=== PATIENT | female | born 1940 | race Caucasian/White ===

== ENCOUNTER → 2017-04-05 15:40 | Outpatient (CLI) | payer MEDICARE, OTHER, SELFPAY ==
--- NOTE | 2017-04-05 | BRBX_PTH ---
PATIENT: MIRLANDE DALTON LOC: [facility] U#:[id number] AGE/SX: 84/F ROOM: RE04/05/[address]: Dr. Paula Alaniz MD : 1940 BED: DIS: SPEC #: [id number] RECD: 04/05/17 15:24 STATUS: DOREEN ILDA #: [id number] JENNIFER: 04/05/17 00:[address]: Paula Alaniz DEPT: SURGICAL PATHOLOGY RECD BY: Warner Ceballos Tissues: Left breast, NOS Procedures: Surgery Specimen Level IV HEADER OPERATION: Left breast biopsy PRE-OP DIAGNOSIS: Abnormal mammogram TISSUE SUBMITTED: Left breast ultrasound-guided mammotome MICROSCOPIC DIAGNOSIS Left breast, ultrasound-guided mammotome core biopsy: Invasive lobular carcinoma, nuclear grade 2 (0.5 cm in greatest length). See comment. JUICE:alex 04/07/17 COMMENT Immunohistochemistry ([id number]) supports the above diagnosis. ER/AR/Irx9hsl studies are being performed on sections of tumor and the results from this study will be reported separately ([id number]). MICROSCOPIC DESCRIPTION Slides are reviewed. GROSS DESCRIPTION Received is one container labeled with the patient's name and not further designated. The specimen consists of multiple elongated fragments of bustamante-yellow fibroadipose tissue that in aggregate measure 2.5 x 1 x 0.1 cm. The entire specimen is submitted in one cassette. / SJ:rg 04/06/17 TC:0 CPT: 40519
--- NOTE | 2017-04-05 | IMM_PTH ---
PATIENT: MIRLANDE DALTON LOC: [facility] U#:[id number] AGE/SX: 84/F ROOM: RE04/05/[address]: Dr. Paula Alaniz MD : 1940 BED: DIS: SPEC #: [id number] RECD: 04/07/17 10:51 STATUS: DOREEN ILDA #: [id number] JENNIFER: 04/05/17 00:[address]: Paula Alaniz DEPT: IMMUNOHISTOCHEMISTRY RECD BY: Celia Spring Tissues: Left breast, NOS Procedures: CK5-6 (add) CK8 (add) E-CAD (add) HER2 JOCELINE (add) KI-67 (add) P53 (add) FL (add) ER (initial) PHYSICIAN & INSTITUTION [place] [id number] SPECIMEN INFORMATION: Tissue Source: Left breast, ultrasound-guided mammotome biopsy Clinical Info: Abnormal mammogram Specimen Number: [id number] CPT code: 54377, 01963 x4, 81252 x3 METHODOLOGY: Deparaffinized sections of prefer/formalin-fixed tissue or PAP/DQ stained slides are incubated with monoclonal/polyclonal antibodies/oligonucleotide probes. Localization is made via biotin free immunoperoxidase method. Appropriate controls are performed and reacted as expected. Results on target cell population are indicated in the following table: RESULTS: ANTIBODY / CLONE RESULT E-Cad (ECH-6) negative CK8 (94zndkA90) positive CK5-6 (D5 & 1684) negative Ki-67 (30-9) positive, moderate P53 (DO-7) positive, weak, a few cells MORPHOMETRIC ANALYSIS ER (clone 6F11) >95%, strong FL (clone 16/1E2) 28%, moderate Her-2Neu (clone CB11) 0 The prognostic test for HER2 is performed on formalin-fixed paraffin embedded tissue. A 3+ (positive) staining pattern is defined as intense, homogeneous, complete, circumferential membranous staining in >10% of contiguous tumor cells. A similar weak (2+) staining pattern is interpreted as equivocal. LISSET follow-up testing is recommended for all equivocal cases. Positivity/negativity for ER/FL is reported if > or < 1% of the tumor cells are immuno- reactive, respectively. The ASCO/CAP criteria is used for scoring. Reference: Journal of Clinical Oncology, 2013; 31:0037-7433 & 2010; 16:9895-5603. Duration of fixation: __ Hrs; Sample Adequate: Yes. These assays have not been validated on decalcified tissues. Results should be interpreted with caution given the likelihood of false negativity on decalcified specimens. These tests were developed and their performance characteristics determined by [facility]. They may not have been cleared or approved by the U.S. Food and Drug Administration. The FDA has determined that such clearance or approval is not necessary. INTERPRETATION: Left breast, ultrasound-guided mammotome biopsy: Invasive lobular carcinoma, nuclear grade 2. Positive for estrogen receptors (favorable prognostic indicator). Positive for progesterone receptors (favorable prognostic indicator). Negative for overexpression of RJD9oyh. SJ:alex 04/07/17
== END ==
PROVIDERS: Visit Provider Surgery
DX: R92.8 Other abnormal and inconclusive findings on diagnostic imaging of breast (principal)
CPT/HCPCS: 88305; 88341; 88342

== ENCOUNTER 2017-04-27 10:15 | Day surgery (SDC) | payer MEDICARE, OTHER, SELFPAY ==
[2017-04-27] VITALS (7 sets, daily range): BP systolic 120–161; BP diastolic 60–94; PULSE 57–71; RESP 16–18; TEMP 36.1–36.6; O2SAT 94–100; BMI 37.8
--- NOTE | 2017-04-27 | IMM_PTH ---
PATIENT: MIRLANDE DALTON [place] [facility] [place][id number] AGE/SX: 76/F ROOM: RE04/27/[address]: Dr. Paula Alaniz MD : 1940 BED: DIS: 04/27/2017 SPEC #: [id number] RECD: 04/29/17 11:09 STATUS: DOREEN REQ #: [id number] JENNIFER: 04/27/17 00:[address]: Paula Alaniz DEPT: IMMUNOHISTOCHEMISTRY RECD BY: Celia Spring ENTERED: 04/29/17 11:14 SP TYPE: IMMUNO OTHR DR: Dr. Warner Leos Jr., MD Tissues: A - Axillary lymph node, NOS B - Left breast, NOS C - Left breast, NOS Procedures: E-CAD (initial) CALPONIN-1 (add) CD31 (add) CK7 (add) CK8 (add) FACTOR VIII (add) Pankeratin (initial) Pankeratin (add) P40 (add) PHYSICIAN & [place] [id number] SPECIMEN INFORMATION: Tissue Source: A ? [place] lymph node left breast, B ? Left breast lumpectomy, C ? Left breast tissue inferior margin Clinical Info: Left breast lobular cancer Specimen Number: [id number] A1, A2, A3, B5, B7, C2 CPT code: 68652 x3, 18315 x12 METHODOLOGY: Deparaffinized sections of prefer/formalin-fixed tissue or PAP/DQ stained slides are incubated with monoclonal/polyclonal antibodies/oligonucleotide probes. Localization is made via biotin free immunoperoxidase method. Appropriate controls are performed and reacted as expected. Results on target cell population are indicated in the following table: RESULTS: ANTIBODY / CLONE RESULT Block A1 AE1-3 (AE1/AE3/PCK26) positive (isolated tumor cells) CK7 (OV-TL12/30) positive (isolated tumor cells) Block A2 AE1-3 (AE1/AE3/PCK26) positive (isolated tumor cells) CK7 (OV-TL12/30) positive (isolated tumor cells) Block A3 AE1-3 (AE1/AE3/PCK26) positive (isolated tumor cells) CK7 (OV-TL12/30) positive (isolated tumor cells) Block B5 E-Cad (ECH-6) negative Block B7 CD31 (DIANELYS/70A) positive Factor VIII (R Ag) positive Block C2 P40 (BC28) negative Calponin-1 (LE824S) negative E-Cad (ECH-6) negative CD31 (DIANELYS/70A) positive Factor VIII (R Ag) positive CK8 (45ofdkJ47) positive These tests were developed and their performance characteristics determined by [facility]. They may not have been cleared or approved by the U.S. Food and Drug Administration. The FDA has determined that such clearance or approval is not necessary. INTERPRETATION: A. [place] lymph nodes, left, biopsy: Three out of three lymph nodes, positive for isolated tumor cells. B. Left breast, lumpectomy: Invasive lobular carcinoma. Lymph-vascular invasion present. C. Left breast tissue inferior margin: Invasive lobular carcinoma. Lymph-vascular invasion present. This case has been reviewed consultation with Dr. Sheppard who concurs with the above diagnosis. SJ:alex 04/30/17
--- NOTE | 2017-04-27 | AXNB_PTH ---
PATIENT: MIRLANDE DALTON LOC: [facility] – [place] U#:[id number] AGE/SX: 76/F ROOM: RE04/27/[address]: Dr. Paula Alaniz MD : 1940 BED: DIS: 04/27/2017 SPEC #: [id number] RECD: 04/27/17 14:00 STATUS: DOREEN REReena #: [id number] JENNIFER: 04/27/17 00:[address]: Paual Alaniz DEPT: SURGICAL PATHOLOGY RECD BY: Celia Spring ENTERED: 04/27/17 15:10 SP TYPE: AX NODE BX OTHR DR: Dr. Warner Leos Jr., MD Tissues: A - Axillary lymph node, NOS B - Left breast, NOS C - Left breast, NOS Procedures: Frozen Section (charge) Frozen Section Add'l ([facility]) Surgery Specimen Level IV Surgery Specimen Level V Frozen (no charge) HEADER OPERATION: Breast lumpectomy, sentinel node, NL, Neoprobe PRE-OP DIAGNOSIS: Left breast lobular cancer TISSUE SUBMITTED: A ? [place] lymph node left breast ? sent to lab at 1356, FS, B ? Left breast lumpectomy ? sent to mammography at 1440 first, ten to histology; 2 long sutures ? anterior, 1 long ? lateral, 1 short ? superior, loop ? posterior border, 2 short ? medial, C ? Left breast tissue inferior margin sent for permanent ? suture on tumor side FROZEN SECTION DIAGNOSIS A. [place] lymph nodes, left, biopsy: Three out of three lymph nodes, negative for metastatic carcinoma. SJ:alex 04/27/17 MICROSCOPIC DIAGNOSIS A. [place] lymph node, biopsy: Three out of three lymph nodes positive for isolated tumor cells. See comment. B. Left breast, lumpectomy with needle localization: Invasive lobular carcinoma, multifocal. Extensive lymph-vascular invasion present. See cancer summary below. C. Left breast tissue inferior margin: Invasive lobular carcinoma, multifocal. Extensive lymph-vascular invasion present. Focal atypical lobular hyperplasia. INVASIVE BREAST CANCER SUMMARY: (Including specimen A-C) Specimen ? partial breast Procedure ? excision with wire-guided localization Lymph node sampling ? sentinel lymph nodes Specimen integrity ? multiple designated specimens Specimen size ? lumpectomy specimen 10 x 6 x 4 cm - Additional inferior margin 5.5 x 4 x 0.9 cm Specimen laterality - left Tumor site ? not specified Tumor size, size of largest invasive carcinoma - 2.5 x 2.5 x 1.5 cm Tumor focality ? multiple foci of invasive carcinoma Number of foci ? ~18 (including the largest focus) Sizes of individual foci - <0.1 to 2.5 cm (largest focus) Macroscopic and Microscopic extent of tumor: Skin ? not present Nipple ? not applicable Skeletal muscle ? not present Ductal carcinoma in situ (DCIS) ? not present Lobular carcinoma in situ (LCIS) ? present, focal Histologic type of invasive carcinoma ? invasive lobular carcinoma, pleomorphic variant Histologic Grade (Vj grade): Glandular/tubular differentiation - score 3 Nuclear pleomorphism - score 3 Mitotic count ? score 1 Overall grade - 2 (score of 7) Margins - Margins uninvolved by invasive carcinoma. See comment. Treatment effect: Response to presurgical (neoadjuvant) therapy - no known presurgical therapy. Lymph-Vascular invasion ? present, extensive Dermal lymph-vascular invasion ? not applicable Lymph nodes: Number of sentinel lymph nodes examined - 3 Total number of lymph nodes examined (sentinel and nonsentinel) - 3 Number of lymph nodes with isolated tumor cells ? 3 Number of lymph nodes with macrometastases and micrometastases - 0 Method of evaluation of sentinel lymph nodes - H & E, multiple levels and IHC. Additional pathologic findings ? fibrocystic changes and intraductal hyperplasia without atyjpia. - changes consistent with previous biopsy site. - focal atypical lobular hyperplasia. Ancillary studies - previously performed on section of tumor ([id number] / [id number]). ER ? positive (>95%, strong) NE ? positive (28%, moderate) Her2 unique ? negative (0) Her2 by dual LISSET ? not performed Microcalcifications ? present in non-neoplastic tissue. Clinical history - Please make reference to previous specimen ([id number]) left breast, ultrasound-guided mammotome core biopsy with diagnosis of invasive lobular carcinoma. PATHOLOGIC STAGE: pT2(m) pN0 (i+,sn) Mx The above summary is in compliance with [employer] of [place] [employer] (CAP) Cancer Protocols Checklist and [place] Joint Committee on Cancer (AJCC), Staging Manual, 8th Ed. SJ:rg 04/30/17 COMMENT A. The isolated tumor cells are noted only by immunohistochemistry for cytokeratins ([id number]). B. The invasive lobular carcinoma is multifocal. The tumor is 0.1 cm away from the inferior margin and 0.2 cm away from the second closest anterior margin. C. The new inferior margin also shows multiple foci of invasive lobular carcinoma. The largest focus of invasive carcinoma in this specimen measures 0.5 cm in greatest dimension. The invasive lobular carcinoma is 0.3 cm away from the new margin. Multiple foci of lymph-vascular invasion is noted and area of lymph-vascular invasion is <0.1 cm away from the new margin. Case has been reviewed in consultation with Dr. Sheppard who concurs with the above diagnosis. IDC:AM MICROSCOPIC DESCRIPTION Slides are reviewed. GROSS DESCRIPTION A - Received fresh for frozen section diagnosis labeled with the patient's name is a specimen designated sentinel lymph node, left. The specimen consists of two pieces of yellow adipose tissue containing nodules measuring in aggregate 3 x 3 x 1 cm. Three lymph nodes are identified measuring 1 to 1.5 cm in greatest dimension. The entire specimen is submitted in four cassettes as follows: 1-3 ? FS, each cassette containing one bisected lymph node, 4 ? rest of the specimen. / SJ:rg 04/27/17 B - Received fresh for OR consultation labeled with the patient's name is a specimen designated left breast lumpectomy. The specimen consists of an irregular fragment of bustamante-yellow fibrofatty tissue measuring 10 x 6 x 4 cm. The specimen has been oriented and is differentially inked as follows: anterior ? yellow, posterior ? black, superior ? blue, inferior ? green, medial ? red and lateral ? orange. Serial sections reveal a firm, bustamante-white lesion measuring 2.5 x 2.5 x 1.5 cm. The lesion is located 0.3 cm from its closest (inferior) margin of resection. This information is conveyed to the surgeon intraoperatively by Dr. Hoffmann. Gas Reverser sections are submitted in 11 cassettes as follows: 1 & 2 ? perpendicular inked margins, 3-9 ? tumor with adjacent soft tissue, 10 & 11 ? contracts representative sections of breast parenchyma away from tumor. / AM:alex 04/28/17 C - Received in fixative is one container labeled with the patient's name and designated left breast tissue, inferior margin. The specimen consists of an irregular fragment of yellow fatty tissue measuring 5.5 x 4 x 0.9 cm. A suture is present along one surface signifying the surface closest to tumor. The opposite surface is inked in black ink and the specimen is serially sectioned and reveals homogenous yellow cut surfaces without mass lesions. Gas Reverser sections are submitted in three cassettes. / AM:alex 04/28/17 TC:0 CPT: 52479 x2, 48920, 49107, 72013, 43697
--- NOTE | 2017-04-27 11:00 | NM_ITS ---
PROCEDURE: NUCLEAR MEDICINE Injection Camino Node - LEFT breast(s). REASON FOR EXAM: Female, 76 years old. Left breast cancer. TECHNIQUE: Camino node localization using radionuclide methods of the LEFT breast(s) was performed following subcutaneous administration of 1.1 mCi of of sulfur colloid Tc-99m. FINDINGS: 1.1 mCi of technetium labeled sulfur colloid was injected subcutaneously in the upper outer quadrant of the left breast. NM/Lymph Node Injection Only IMPRESSION: 1.1 mCi of Tc labeled sulfur colloid was injected in 4 equal aliquots in the upper outer quadrant of the left breast for sentinel node imaging. Electronically Signed: Oseas Renee MD at 12:20 EDT Tel [phone], Service support ,
[2017-04-27] MEDS: Cefazolin 2 GM in 0.9% Normal Saline 100 ML IV (13:20)
[2017-04-27] MEDS: Methylene Blue 1% 100 MG/10 ML VIAL (13:30)
[2017-04-27] MEDS: Bupiv/Epi 0.5% Mpf 30 ML Vial (13:35)
--- NOTE | 2017-04-27 14:46 | HPBI_ITS ---
SURGICAL BREAST SPECIMEN RADIOGRAPH CLINICAL: Document presence of mass in biopsy specimen. FINDINGS: Specimen shows presence of mass. Electronically Signed: Oseas Renee MD at 9:45 EDT Tel [phone], Service support , HPBI/Breast Biopsy Specimen
--- NOTE | 2017-04-27 15:14 | PCM.IMDPSTOP ---
Immediate Post-Op Note Date of Procedure: 04/27/17 Primary Surgeon/Physician: Paula Alaniz blasting worker: Roya Coleman Pre-Operative Diagnosis: left breast cancer Post-Operative Diagnosis: same Surgery/Procedure Performed:: left breast lumpectomy via wire localization, deep left axillary sentinel lymph node biopsy, injection of localization dye for sentine lymph nodes Description of Surgical Findings:: 3 lymph nodes identified, negative for metastatic disease Estimated Blood Loss: < 10 ml Specimen's removed: left breast lumpectomy, left axillary lymph sendy tissue, inferior margin of biopsy cavity Drains: none Type of Anesthesia:: General ASA Class: ASA3 Severe Disease - Admit VTE Documentation VTE Present on Admission: Yes VTE Mechan Device Prophylaxis: SCD's
--- NOTE | 2017-04-27 15:18 | OP.PN_ITS ---
Immediate Post-Op Note Date of Procedure: 04/27/17 Primary Surgeon/Physician: Paula Alaniz cloth classer: Roya Coleman Pre-Operative Diagnosis: left breast cancer Post-Operative Diagnosis: same Surgery/Procedure Performed:: left breast lumpectomy via wire localization, deep left axillary sentinel lymph node biopsy, injection of localization dye for sentine lymph nodes Description of Surgical Findings:: 3 lymph nodes identified, negative for metastatic disease Estimated Blood Loss: < 10 ml Specimen's removed: left breast lumpectomy, left axillary lymph sendy tissue, inferior margin of biopsy cavity Drains: none Type of Anesthesia:: General ASA Class: ASA3 Severe Disease - Admit VTE Documentation VTE Present on Admission: Yes VTE Mechan Device Prophylaxis: SCD's
--- NOTE | 2017-04-27 15:18 | PCM.OPRPT ---
Report of Operation Date of Procedure: 04/27/17 Pre-Operative Diagnosis: left breast cancer Post-Operative Diagnosis: same Surgery/Procedure Performed:: left breast lumpectomy via wire localization, deep left axillary sentinel lymph node biopsy, injection of localization dye for sentinal lymph nodes Description of Surgical Findings:: 3 lymph nodes identified, negative for metastatic disease closest margin was inferior - therefore additional inferior margin was taken documentation clerk: Roya Coleman Type of Anesthesia:: General Anesthesiologist: Zac Kathleen Specimen's removed: left lumpectomy breast tissue, left axillary lymph sendy tissue, inferior margin of biopsy cavity from left breast lumpectomy site Drains: none Estimated Blood Loss (mL): < 10 ml Fluids Replaced: 900 ml RL Description of Procedure: After informed consent was given, the patient was brought into the Breast Stereotactic Radiology suite and placed in the prone position on the Vargas stereotactic table. Appropriate time out protocol was followed. The patients left breast was placed in the opening at the head of the table. A guard supervisor compression mammogram was then obtained in the lateral view. The marker clip that was previously placed was identified. Stereo pictures of the lesion were then taken for XYZ coordinates. The Kopans needle was then positioned where it would be entering into the patients breast. The skin at this site was then cleansed with a surgical skin preparation. The skin and subcutaneous tissues at this site were then infiltrated with 1% xylocaine. The Kopans needle was then positioned into the patients breast at the proper coordinates of depth. A guard supervisor film was obtained which revealed the wire in proper position. The patient was then placed in the supine position and the wire was taped into place. A unilateral mammogram in the CC and MLO view were then taken for use in the OR. The patient tolerated this portion of the procedure well and was brought to the AC awaiting surgery in the OR. The patient was then brought to the Operating Room and placed on the operating table in the supine position. Appropriate time out protocol was followed. 3 cc of 50:50 methylene blue dye was then injected into the periareolar area and around the biopsy cavity with a 25 g needle. Gentle massage was then done for a few minutes. The patient's left chest and neck area was then prepped with a sterile surgical skin preparation and appropriate sterile surgical drapes were placed. A skin incision was made in the inferior portion of the hair bearing area of the left axilla after the area was infiltrated with local anesthetic. It was carried through to the subcutaneous tissues using electrocautery. Any hemorrhage was controlled with electrocautery. A Weitlaner retractor was used for increased operative exposure. The Neoprobe device was brought into the operative field. 10 second readings over the tumor site was 99. 10 second reading over a control area was 1. The 10 second reading in the axilla was 41. Blue lymphatic vessels were then followed by blunt dissection until blue colored lymph tissue was identified. This was from the surrounding tissue by blunt dissection and then ligated with the Harmonic scalpel. 10 second count for this lymphatic tissue was 44. The lymph tissue was then forwarded to pathology for frozen section. Pathology revealed that three lymph nodes were found that were negative for metastatic disease. 10 second count in the axilla was now 0. No palpable lesions were noted in the axilla. Hemostasis was controlled with electrocautery. Olaf was applied in the cavity. The deep tissues were approximated with vicryl suture. The skin edges were reapproximated with 3-0 vicryl suture in a horizontal mattress fashion and then further closed with running 4-0 monocryl in a subcuticular fashion. Cavilon and steristrips were then placed to reinforce the skin closure and proper sterile dressings were applied. The left breast lumpectomy was then done, next. A wire had already been placed in the stereotactic biopsy room in the radiology department as described above. The skin and subcutaneous tissues at the site of the breast lesion was then infiltrated with local anesthetic. A transverse incision was made in the upper outer quadrant of the left breast with a 15 blade scalpel and carried down through to the subcutaneous tissues. Hemostasis was controlled with electrocautery. The wire was then palpated out. The breast tissue surrounding the wire was then carefully palpated out and from the surrounding tissues using electrocautery. There was also nodular dense tissue that was noted, this was also excised. The breast tissue, once from the breast, was then forwarded to the radiology department, where a specimen mammogram revealed that the marker clip was within the specimen. The breast tissue was then forwarded to pathology for analysis. Pathology review revealed that the closest margin was inferior. Therefore additional inferior margin tissue was obtained. The wound cavity was carefully examined. No further suspicious tissue was palpated or visualized. Hemostasis was carefully controlled with electrocautery. The subdermal tissues were then approximated with vicryl suture. The incision was then reapproximated close using running monocryl suture. Cavilon and steristrips were then placed to reinforce the skin closure. A sterile dressing was then applied. The patient was then brought to the Recovery Room in stable condition. - Complications none noted - Admit VTE Documentation VTE Present on Admission: Yes VTE Mechan Device Prophylaxis: SCD's
--- NOTE | 2017-04-27 15:24 | PCM.DC.BS ---
Discharge Diet: No Restrictions Discharge Activity: Return to Normal Activity, May not drive while taking narcotic pain medications. Lifting Restrictions: no lifting greater than 10 pounds with left arm Call your doctor if your incision/area has: Continuous Slow Oozing, Foul Smelling Discharge Call your doctor if you observe: Fever of 101 or Higher Additional Dressing/Incision Instructions:: Leave dressings in place. May get wet in shower, do not scrub. No soaking - no tub baths/swimming Allergies/Adverse Reactions: Allergies Sulfa (Sulfonamide Antibiotics) Allergy (Verified 04/20/17 09:30) Unknown Medications to take at Discharge Acetaminophen [Tylenol Extra Strength] 500 mg PO DAILY 04/20/17 Atenolol [Tenormin (Beta Aniyah)] 100 mg PO DAILY 04/20/17 Atorvastatin Calcium [Lipitor] 10 mg PO QHS 04/20/17 Calcium Carbonate/Vitamin D3 [Calcium 600 + Vit D3 Caplet] 1 each PO TID 04/20/17 Cyclobenzaprine [Flexeril] 10 mg PO DAILY 04/20/17 Gabapentin [Neurontin] 300 mg PO BID 04/20/17 Hydrochlorothiazide [Hctz] 25 mg PO DAILY 04/20/17 Losartan Potassium [Cozaar] 50 mg PO DAILY 04/20/17 Multivit with Calcium,Iron,Min [Multiple Vitamins For Women] 1 each PO DAILY 04/20/17 Primary Care Physician: Warner Leos Jr., MD [Primary Care Provider] - Please Follow Up With: Paula Alaniz MD - call When: to be seen in 7-10 days, please call for date and time, thank you
--- NOTE | 2017-04-27 15:28 | DCINST_ITS ---
Discharge Diet: No Restrictions Discharge Activity: Return to Normal Activity, May not drive while taking narcotic pain medications. Lifting Restrictions: no lifting greater than 10 pounds with left arm Call your doctor if your incision/area has: Continuous Slow Oozing, Foul Smelling Discharge Call your doctor if you observe: Fever of 101 or Higher Additional Dressing/Incision Instructions:: Leave dressings in place. May get wet in shower, do not scrub. No soaking - no tub baths/swimming Allergies/Adverse Reactions: Allergies Sulfa (Sulfonamide Antibiotics) Allergy (Verified 04/20/17 09:30) Unknown Medications to take at Discharge Acetaminophen [Tylenol Extra Strength] 500 mg PO DAILY 04/20/17 Atenolol [Tenormin (Beta Aniyah)] 100 mg PO DAILY 04/20/17 Atorvastatin Calcium [Lipitor] 10 mg PO QHS 04/20/17 Calcium Carbonate/Vitamin D3 [Calcium 600 + Vit D3 Caplet] 1 each PO TID Cyclobenzaprine [Flexeril] 10 mg PO DAILY 04/20/17 Gabapentin [Neurontin] 300 mg PO BID 04/20/17 Hydrochlorothiazide [Hctz] 25 mg PO DAILY 04/20/17 Losartan Potassium [Cozaar] 50 mg PO DAILY 04/20/17 Multivit with Calcium,Iron,Min [Multiple Vitamins For Women] 1 each PO DAILY Primary Care Physician: Warner Leos Jr., MD [Primary Care Provider] - Please Follow Up With: Paula Alaniz MD - call When: to be seen in 7-10 days, please call for date and time, thank you
== END 2017-04-27 17:37 | disposition home or self-care (01) ==
LOC: SDC 10:21 → AC 10:22
PROVIDERS: Family Provider Internal Medicine; PCP Internal Medicine; Visit Provider Surgery
PROC: (CPT 19301; principal; 2017-04-27 12:45)
DX: C50.412 Malignant neoplasm of upper-outer quadrant of left female breast (principal); Z17.0 Estrogen receptor positive status [ER+]; I10 Essential (primary) hypertension; E78.00 Pure hypercholesterolemia, unspecified; D50.9 Iron deficiency anemia, unspecified; Z79.899 Other long term (current) drug therapy
CPT/HCPCS: 00400; 19301; 38525; 19281; 38792; 76098; 88305; 88307; 88331; 88332; 88341; 88342; A9541; J7120; J2405; J3490

== ENCOUNTER → 2024-02-28 | Outpatient (REF) | payer OTHER, SELFPAY ==
[2024-02-28 10:07] LABS: Absolute Lymphocyte Count 1.75 X10^3/uL (0.83-4.51); Absolute Neutrophil Count 3.9 X10^3/uL (2.0-7.7); Basophil# 0.05 X10^3/uL; Basophil% 0.8 % (0-1); Eosinophil# 0.15 X10^3/uL; Eosinophils% 2.3 % (0-5); Hematocrit 32.1 % (37-47); Hemoglobin 9.9 g/dL (12.0-15.0); Lymphocyte # 1.75 X10^3/ul (0.83-4.51); Lymphocyte % 27.3 % (19-41); Mean Corp Hgb Conc 30.8 g/dL (32-36); Mean Corpuscular Hgb 27.6 pg (27.0-32.0); Mean Corpuscular Volume 89.4 fL (81-99); Mean Platelet Vol. 9.6 fl (6.2-12.0); Monocyte# 0.56 X10^3/uL; Monocyte% 8.7 % (0-10); NRBC Flagged by Analyzer 0 % (0-5); Neutrophil # 3.89 X10^3/uL (2.7-7.7); Neutrophil % 60.6 % (47-70); Platelet Count 261 K/mm3 (150-450); RBC Distribution Width CV 13.4 % (11.6-14.6); RBC Distribution Width SD 43.7 fl (35.1-43.9); Red Blood Count 3.59 M/mm3 (4.2-5.4); White Blood Count 6.4 K/mm3 (4.4-11.0)
[2024-02-28 10:20] LABS: Vitamin D,25 Hydroxy 60.8 ng/mL
[2024-02-28 10:28] LABS: AST(SGOT) 15 U/L (15-37); Alanine Aminotransfer ALT/SGPT 17 U/L (13-56); Albumin, Serum 2.8 g/dL (3.2-5.0); Alkaline Phosphatase 63 U/L (45-117); Anion Gap 4 (5-15); BUN 23 mg/dL (7-18); BUN/Creat Ratio 24.1 RATIO (10-20); Calcium,Total 9.6 mg/dL (8.5-10.1); Chloride 111 mmol/L (98-107); Cholesterol 134 mg/dL (200); Creatinine, Serum 0.95 mg/dL (0.55-1.02); EST Glomerular Filtration Rate 59 mL/min (>60); Est Glom Filt Rate - Afr Amer 72 mL/min (>60); Globulin 2.9 g/dL (2.2-4.2); Glucose 93 mg/dL (74-106); High Density Lipoprotein 58 mg/dL; Potassium 4.1 mmol/L (3.5-5.1); Protein, Total 5.7 g/dL (6.4-8.2); Sodium Level 143 mmol/L (136-145); Triglycerides 43 mg/dL; Very Low Density Lipoprotein 9 mg/dL (5-40)
[2024-02-28 10:43] LABS: Valproic Acid (Depakene) Level 26 ug/mL (50-100)
== END ==
LOC: OLS.WHLCAR 05:00
PROVIDERS: PCP Internal Medicine; Visit Provider Internal Medicine
DX: G30.9 Alzheimer's disease, unspecified (principal); F02.B11 Dementia in other diseases classified elsewhere, moderate, with agitation; G21.9 Secondary parkinsonism, unspecified; I12.9 Hypertensive chronic kidney disease with stage 1 through stage 4 chronic kidney disease, or unspecified chronic kidney disease; N18.9 Chronic kidney disease, unspecified
CPT/HCPCS: 36415; 80053; 80061; 80164; 82306; 85025

== ENCOUNTER → 2024-03-27 05:00 | Outpatient (REF) | payer OTHER, SELFPAY ==
[2024-03-27 08:27] LABS: Absolute Lymphocyte Count 2.06 X10^3/uL (0.83-4.51); Absolute Neutrophil Count 3.3 X10^3/uL (2.0-7.7); Basophil# 0.05 X10^3/uL; Basophil% 0.8 % (0-1); Eosinophil# 0.14 X10^3/uL; Eosinophils% 2.3 % (0-5); Hematocrit 30.9 % (37-47); Hemoglobin 9.6 g/dL (12.0-15.0); Lymphocyte # 2.06 X10^3/ul (0.83-4.51); Lymphocyte % 33.5 % (19-41); Mean Corp Hgb Conc 31.1 g/dL (32-36); Mean Corpuscular Volume 90.1 fL (81-99); Mean Platelet Vol. 10.2 fl (6.2-12.0); Monocyte# 0.59 X10^3/uL; Monocyte% 9.6 % (0-10); NRBC Flagged by Analyzer 0 % (0-5); Neutrophil # 3.28 X10^3/uL (2.7-7.7); Neutrophil % 53.3 % (47-70); Platelet Count 235 K/mm3 (150-450); RBC Distribution Width CV 13.2 % (11.6-14.6); RBC Distribution Width SD 43.7 fl (35.1-43.9); Red Blood Count 3.43 M/mm3 (4.2-5.4); White Blood Count 6.2 K/mm3 (4.4-11.0)
[2024-03-27 08:57] LABS: Anion Gap 6 (5-15); BUN 19 mg/dL (7-18); BUN/Creat Ratio 19.3 RATIO (10-20); Calcium,Total 9.3 mg/dL (8.5-10.1); Chloride 110 mmol/L (98-107); Creatinine, Serum 0.98 mg/dL (0.55-1.02); EST Glomerular Filtration Rate 57 mL/min (>60); Est Glom Filt Rate - Afr Amer 69 mL/min (>60); Glucose 89 mg/dL (74-106); Sodium Level 143 mmol/L (136-145)
== END ==
LOC: OLS.WHLCAR 05:00
PROVIDERS: PCP Internal Medicine; Visit Provider Internal Medicine
DX: G30.9 Alzheimer's disease, unspecified (principal); F02.B11 Dementia in other diseases classified elsewhere, moderate, with agitation; G21.9 Secondary parkinsonism, unspecified; I12.9 Hypertensive chronic kidney disease with stage 1 through stage 4 chronic kidney disease, or unspecified chronic kidney disease
CPT/HCPCS: 36415; 80048; 85025

== ENCOUNTER → 2024-04-03 05:00 | Outpatient (REF) | payer OTHER, SELFPAY ==
[2024-04-03 06:31] LABS: Basophil# 0.07 X10^3/uL; Basophil% 1.3 % (0-1); Eosinophil# 0.12 X10^3/uL; Eosinophils% 2.3 % (0-5); Hematocrit 31.6 % (37-47); Hemoglobin 9.7 g/dL (12.0-15.0); Lymphocyte % 32.1 % (19-41); Mean Corp Hgb Conc 30.7 g/dL (32-36); Mean Corpuscular Volume 91.1 fL (81-99); Mean Platelet Vol. 9.9 fl (6.2-12.0); Monocyte# 0.44 X10^3/uL; Monocyte% 8.3 % (0-10); NRBC Flagged by Analyzer 0 % (0-5); Neutrophil # 2.95 X10^3/uL (2.7-7.7); Neutrophil % 55.8 % (47-70); Platelet Count 229 K/mm3 (150-450); RBC Distribution Width CV 13.2 % (11.6-14.6); RBC Distribution Width SD 43.2 fl (35.1-43.9); Red Blood Count 3.47 M/mm3 (4.2-5.4); White Blood Count 5.3 K/mm3 (4.4-11.0)
[2024-04-03 06:51] LABS: Anion Gap 6 (5-15); BUN 20 mg/dL (7-18); BUN/Creat Ratio 21.1 RATIO (10-20); Calcium,Total 9.4 mg/dL (8.5-10.1); Chloride 111 mmol/L (98-107); Creatinine, Serum 0.95 mg/dL (0.55-1.02); EST Glomerular Filtration Rate 59 mL/min (>60); Est Glom Filt Rate - Afr Amer 72 mL/min (>60); Glucose 93 mg/dL (74-106); Potassium 4.4 mmol/L (3.5-5.1); Sodium Level 144 mmol/L (136-145)
== END ==
LOC: OLS.WHLCAR 05:00
PROVIDERS: PCP Internal Medicine; Visit Provider Internal Medicine
DX: G30.9 Alzheimer's disease, unspecified (principal); F02.B11 Dementia in other diseases classified elsewhere, moderate, with agitation; G21.9 Secondary parkinsonism, unspecified; I12.9 Hypertensive chronic kidney disease with stage 1 through stage 4 chronic kidney disease, or unspecified chronic kidney disease
CPT/HCPCS: 36415; 80048; 85025

== ENCOUNTER → 2024-05-01 | Outpatient (REF) | payer OTHER, SELFPAY ==
[2024-05-01 08:54] LABS: Absolute Neutrophil Count 2.7 X10^3/uL (2.0-7.7); Basophil# 0.08 X10^3/uL; Basophil% 1.5 % (0-1); Eosinophil# 0.12 X10^3/uL; Eosinophils% 2.2 % (0-5); Hematocrit 37.3 % (37-47); Hemoglobin 11.3 g/dL (12.0-15.0); Lymphocyte % 35.5 % (19-41); Mean Corp Hgb Conc 30.3 g/dL (32-36); Mean Corpuscular Hgb 28.3 pg (27.0-32.0); Mean Corpuscular Volume 93.5 fL (81-99); Mean Platelet Vol. 10.2 fl (6.2-12.0); Monocyte# 0.48 X10^3/uL; NRBC Flagged by Analyzer 0 % (0-5); Neutrophil # 2.71 X10^3/uL (2.7-7.7); Neutrophil % 50.7 % (47-70); Platelet Count 235 K/mm3 (150-450); RBC Distribution Width SD 44.5 fl (35.1-43.9); Red Blood Count 3.99 M/mm3 (4.2-5.4); White Blood Count 5.4 K/mm3 (4.4-11.0)
[2024-05-01 14:42] LABS: Anion Gap 11 (5-15); BUN 17 mg/dL (4-19); BUN/Creat Ratio 17.8 RATIO (10-20); Calcium,Total 9.8 mg/dL (7.6-11.0); Carbon Dioxide 23.3 mmol/L (21.0-32.0); Chloride 107 mmol/L (98-108); Creatinine, Serum 0.96 mg/dL (0.70-1.20); EST Glomerular Filtration Rate 58 (>60); Glucose 89 mg/dL (70-99); Potassium 4.3 mmol/L (3.3-5.1); Sodium Level 141 mmol/L (133-145)
== END ==
LOC: OLS.WHLCAR 05:00
PROVIDERS: PCP Internal Medicine; Visit Provider Internal Medicine
DX: I12.9 Hypertensive chronic kidney disease with stage 1 through stage 4 chronic kidney disease, or unspecified chronic kidney disease (principal); N18.9 Chronic kidney disease, unspecified; F02.B11 Dementia in other diseases classified elsewhere, moderate, with agitation; G30.9 Alzheimer's disease, unspecified
CPT/HCPCS: 36415; 80048; 85025

== ENCOUNTER → 2024-05-15 | Outpatient (REF) | payer MEDICARE, OTHER, SELFPAY ==
[2024-05-15 09:47] LABS: Anion Gap 10 (5-15); BUN 15 mg/dL (4-19); BUN/Creat Ratio 15.3 RATIO (10-20); Calcium,Total 9.8 mg/dL (7.6-11.0); Chloride 108 mmol/L (98-108); Creatinine, Serum 0.98 mg/dL (0.70-1.20); EST Glomerular Filtration Rate 57 (>60); Glucose 87 mg/dL (70-99); Potassium 3.8 mmol/L (3.3-5.1); Sodium Level 143 mmol/L (133-145)
== END ==
LOC: OLS.WHLCAR 04:00
PROVIDERS: PCP Internal Medicine; Referring Provider Internal Medicine; Visit Provider Internal Medicine
DX: R60.9 Edema, unspecified (principal); G30.9 Alzheimer's disease, unspecified; I12.9 Hypertensive chronic kidney disease with stage 1 through stage 4 chronic kidney disease, or unspecified chronic kidney disease; N18.9 Chronic kidney disease, unspecified
CPT/HCPCS: 36415; 80048

== ENCOUNTER → 2024-05-24 | Outpatient (REF) | payer MEDICARE, OTHER, SELFPAY ==
[2024-05-24 08:06] LABS: Absolute Neutrophil Count 3.1 X10^3/uL (2.0-7.7); Basophil# 0.06 X10^3/uL; Basophil% 1.1 % (0-1); Eosinophil# 0.12 X10^3/uL; Eosinophils% 2.1 % (0-5); Hematocrit 33.2 % (37-47); Hemoglobin 10.7 g/dL (12.0-15.0); Lymphocyte % 33.6 % (19-41); Mean Corp Hgb Conc 32.2 g/dL (32-36); Mean Corpuscular Hgb 27.8 pg (27.0-32.0); Mean Corpuscular Volume 86.2 fL (81-99); Mean Platelet Vol. 10.2 fl (6.2-12.0); Monocyte# 0.46 X10^3/uL; Monocyte% 8.1 % (0-10); NRBC Flagged by Analyzer 0 % (0-5); Neutrophil # 3.11 X10^3/uL (2.7-7.7); Neutrophil % 54.9 % (47-70); Platelet Count 264 K/mm3 (150-450); RBC Distribution Width CV 13.2 % (11.6-14.6); RBC Distribution Width SD 41.3 fl (35.1-43.9); Red Blood Count 3.85 M/mm3 (4.2-5.4); White Blood Count 5.7 K/mm3 (4.4-11.0)
[2024-05-24 08:54] LABS: ALB/GLOB Ratio 1.5 RATIO (0.9-2.4); AST(SGOT) 21 U/L (<=31); Alanine Aminotransfer ALT/SGPT 11 U/L (<=34); Alkaline Phosphatase 67 U/L (35-104); Anion Gap 11 (5-15); BUN 21 mg/dL (4-19); BUN/Creat Ratio 19.7 RATIO (10-20); Calcium,Total 9.9 mg/dL (7.6-11.0); Carbon Dioxide 23.5 mmol/L (21.0-32.0); Chloride 106 mmol/L (98-108); Creatinine, Serum 1.05 mg/dL (0.70-1.20); EST Glomerular Filtration Rate 52 (>60); Globulin 2.6 g/dL (2.2-4.2); Glucose 95 mg/dL (70-99); Potassium 3.9 mmol/L (3.3-5.1); Protein, Total 6.6 g/dL (5.9-8.4); Sodium Level 141 mmol/L (133-145); Total Bilirubin 0.29 mg/dL (0.00-1.30)
[2024-05-24 08:55] LABS: Hemoglobin A1c 5.5 % (<=5.6)
== END ==
LOC: OLS.WHLCAR 05:00
PROVIDERS: PCP Internal Medicine; Visit Provider Internal Medicine
DX: R73.03 Prediabetes (principal); G30.9 Alzheimer's disease, unspecified; F02.B11 Dementia in other diseases classified elsewhere, moderate, with agitation; G21.9 Secondary parkinsonism, unspecified; I12.9 Hypertensive chronic kidney disease with stage 1 through stage 4 chronic kidney disease, or unspecified chronic kidney disease; N18.9 Chronic kidney disease, unspecified
CPT/HCPCS: 36415; 80053; 83036; 85025

== ENCOUNTER → 2024-05-29 | Outpatient (REF) | payer MEDICARE, OTHER, SELFPAY ==
[2024-05-29 08:02] LABS: Absolute Lymphocyte Count 2.09 X10^3/uL (0.83-4.51); Absolute Neutrophil Count 3.4 X10^3/uL (2.0-7.7); Basophil# 0.07 X10^3/uL; Basophil% 1.2 % (0-1); Eosinophils% 1.6 % (0-5); Hematocrit 33.4 % (37-47); Hemoglobin 10.9 g/dL (12.0-15.0); Lymphocyte # 2.09 X10^3/ul (0.83-4.51); Lymphocyte % 34.4 % (19-41); Mean Corp Hgb Conc 32.6 g/dL (32-36); Mean Corpuscular Volume 85.9 fL (81-99); Mean Platelet Vol. 10.3 fl (6.2-12.0); Monocyte# 0.46 X10^3/uL; Monocyte% 7.6 % (0-10); NRBC Flagged by Analyzer 0 % (0-5); Neutrophil # 3.35 X10^3/uL (2.7-7.7); Platelet Count 247 K/mm3 (150-450); RBC Distribution Width CV 13.1 % (11.6-14.6); Red Blood Count 3.89 M/mm3 (4.2-5.4); White Blood Count 6.1 K/mm3 (4.4-11.0)
[2024-05-29 08:32] LABS: AST(SGOT) 20 U/L (<=31); Alanine Aminotransfer ALT/SGPT 11 U/L (<=34); Alkaline Phosphatase 62 U/L (35-104); Anion Gap 10 (5-15); BUN 18 mg/dL (4-19); BUN/Creat Ratio 16.9 RATIO (10-20); Bilirubin, Direct 0.17 mg/dL (0.00-0.30); Calcium,Total 9.8 mg/dL (7.6-11.0); Carbon Dioxide 25.1 mmol/L (21.0-32.0); Chloride 105 mmol/L (98-108); Creatinine, Serum 1.08 mg/dL (0.70-1.20); EST Glomerular Filtration Rate 50 (>60); Globulin 2.5 g/dL (2.2-4.2); Glucose 89 mg/dL (70-99); Potassium 4.3 mmol/L (3.3-5.1); Protein, Total 6.4 g/dL (5.9-8.4); Sodium Level 140 mmol/L (133-145); Total Bilirubin 0.35 mg/dL (0.00-1.30)
== END ==
LOC: OLS.WHLCAR 05:00
PROVIDERS: PCP Internal Medicine; Visit Provider Internal Medicine
DX: G30.9 Alzheimer's disease, unspecified (principal); F02.B11 Dementia in other diseases classified elsewhere, moderate, with agitation; I12.9 Hypertensive chronic kidney disease with stage 1 through stage 4 chronic kidney disease, or unspecified chronic kidney disease; N18.9 Chronic kidney disease, unspecified
CPT/HCPCS: 36415; 80048; 80076; 85025

== ENCOUNTER → 2024-06-26 | Outpatient (REF) | payer MEDICARE, OTHER, SELFPAY ==
[2024-06-26 07:45] LABS: Absolute Lymphocyte Count 2.05 X10^3/uL (0.83-4.51); Absolute Neutrophil Count 3.9 X10^3/uL (2.0-7.7); Basophil# 0.03 X10^3/uL; Basophil% 0.4 % (0-1); Eosinophil# 0.13 X10^3/uL; Eosinophils% 1.9 % (0-5); Hematocrit 32.7 % (37-47); Hemoglobin 10.1 g/dL (12.0-15.0); Lymphocyte # 2.05 X10^3/ul (0.83-4.51); Lymphocyte % 30.5 % (19-41); Mean Corp Hgb Conc 30.9 g/dL (32-36); Mean Corpuscular Hgb 27.9 pg (27.0-32.0); Mean Corpuscular Volume 90.3 fL (81-99); Mean Platelet Vol. 10.3 fl (6.2-12.0); Monocyte# 0.59 X10^3/uL; Monocyte% 8.8 % (0-10); NRBC Flagged by Analyzer 0 % (0-5); Neutrophil # 3.89 X10^3/uL (2.7-7.7); Platelet Count 242 K/mm3 (150-450); RBC Distribution Width CV 14.1 % (11.6-14.6); RBC Distribution Width SD 46.5 fl (35.1-43.9); Red Blood Count 3.62 M/mm3 (4.2-5.4); White Blood Count 6.7 K/mm3 (4.4-11.0)
[2024-06-26 07:46] LABS: Anion Gap 9 (5-15); BUN 21 mg/dL (4-19); BUN/Creat Ratio 20.9 RATIO (10-20); Calcium,Total 9.6 mg/dL (7.6-11.0); Carbon Dioxide 23.5 mmol/L (21.0-32.0); Chloride 107 mmol/L (98-108); Creatinine, Serum 1.01 mg/dL (0.70-1.20); EST Glomerular Filtration Rate 55 (>60); Glucose 89 mg/dL (70-99); Potassium 4.3 mmol/L (3.3-5.1); Sodium Level 140 mmol/L (133-145)
== END ==
LOC: OLS.WHLCAR 04:00
PROVIDERS: PCP Internal Medicine; Referring Provider Internal Medicine; Visit Provider Internal Medicine
DX: G30.9 Alzheimer's disease, unspecified (principal); F02.B11 Dementia in other diseases classified elsewhere, moderate, with agitation; I12.9 Hypertensive chronic kidney disease with stage 1 through stage 4 chronic kidney disease, or unspecified chronic kidney disease; N18.9 Chronic kidney disease, unspecified
CPT/HCPCS: 36415; 80048; 85025

== ENCOUNTER 2024-07-24 01:23 | Emergency (ER) | payer MEDICARE, OTHER, SELFPAY ==
[2024-07-24 01:24] VITALS: BP 149/90; PULSE 53; RESP 16; TEMP 36.6; O2SAT 98; BMI 28.0
--- NOTE | 2024-07-24 01:38 | ED.VIS.FALL ---
HPI HPI - Fall History of Present Illness Chief Complaint: Fall Informant: patient Occured/Mechanism Occurred: Today Mechanism/Context: Yes same level fall Pain/Injury Pain Location: lower extremity Quality of Pain: Sharp Current Severity: Moderate Maximum Severity: Moderate Narrative Narrative: 83-year-old female history of dementia, breast cancer and prediabetes. Took a fall today at [facility]. Now having right hip pain and unable to walk on her right hip. Denies any other complaints. Denies hitting her head. Denies head or neck pain. Prior similar symptoms: No Recent Illness/Hospitalization: No [facility] Medical History Malignant neoplasm of breast Prediabetes Hypertension Hyperlipemia Secondary parkinsonism Dementia AD (Alzheimer's disease) Home Medications ?Medication ?Instructions ?Recorded ?Last Taken ?Type acetaminophen 500 mg tablet 500 mg PO DAILY PRN fever or pain 04/20/17 Unknown History (Tylenol Extra Strength) atorvastatin 10 mg tablet 20 mg PO QHS 04/20/17 Unknown History calcium 600 mg (as 1 ea PO DAILY 04/20/17 Unknown History carbonate)-vitamin D3 20 mcg (800 unit) tablet losartan 50 mg tablet (Cozaar) 50 mg PO DAILY 04/20/17 04/27/17 08:00 History tajegdpbguzo-Gp-nbok-minerals 1 ea PO DAILY 04/20/17 Unknown History (Multiple Vitamin, Womens tablet) alendronate 70 mg tablet 70 mg PO QWEEK 07/24/24 Unknown History buspirone 5 mg tablet 5 mg PO BID 07/24/24 Unknown History divalproex 125 mg tablet,delayed 125 mg PO QHS 07/24/24 Unknown History release donepezil 10 mg tablet 10 mg PO DAILY 07/24/24 Unknown History escitalopram oxalate 10 mg tablet 10 mg PO DAILY 07/24/24 Unknown History ferrous sulfate 325 mg (65 mg 325 mg PO MOWEFR 07/24/24 Unknown History iron) tablet furosemide 20 mg tablet (Lasix) 20 mg PO DAILY 07/24/24 Unknown History hydrocodone-acetaminophen 5-325mg 1 tab PO Q6H PRN pain 3 days #14 07/24/24 Unknown Rx 5mg-325mg tabs memantine 28 mg capsule 28 mg PO DAILY 07/24/24 Unknown History sprinkle,extended release 24hr nystatin 100,000 unit/gram topical 1 applic topical BID PRN PRN groin 07/24/24 Unknown History cream polyethylene glycol 3350 17 17 g PO DAILY 07/24/24 Unknown History gram/dose oral powder (Miralax) Allergy/AdvReac Type Severity Reaction Status Date / Time No Known Allergies Allergy Verified 07/24/24 01:25 Social History Smoking Status: Never smoker ROS ROS ED ROS Narrative Denies recent illness. Constitutional Constitutional ED: Denies chills or fever(s) Eyes Eyes: Denies blurry vision ENT ENT ED: Denies ear pain Cardiovascular Cardiovascular: Denies chest pain Respiratory/Chest Respiratory/Chest: Denies cough Gastrointestinal Gastrointestinal: Denies abdominal pain Genitourinary Genitourinary ED: Denies dysuria Musculoskeletal Musculoskeletal: Denies arthralgias Integumentary Denies abscess Neurologic Neurologic: Denies headache(s) Psychiatric Psychiatric: Denies anxiety Endocrine Endocrinology: Denies polydipsia Hematologic/Lymphatic Hematologic/Lymphatic: Denies easy bleeding or easy bruising Allergic/Immunologic Allergic/Immunologic ED: Denies mouth swelling or tongue swelling EXAM Physical Exam Narrative Exam Narrative: 83-year-old female sitting up in bed. Vital signs stable afebrile. H EENT exam pupils round react light. Mytrex membranes. No trauma to her head or scalp. Nontender no hematoma. Neck and spine nontender. Back and spine nontender. No bruising. Lungs clear to auscultation bilaterally. Heart regular rhythm rate about 60 no murmur. Chest wall ribs nontender. Abdomen soft nontender. Pelvic girdle intact. Her right leg is slightly shortened and rotated externally. She has pain with active and passive movement of the right hip. The distal femur, knee, right lower leg ankle and foot are nontender. Normal dorsi plantarflexion. Left lower extremity and left hip are nontender. Normal range of motion. 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 Neurologically she is awake and alert. She answers questions she does have dementia and some confusion. She does follow commands. Const Vital Signs: 07/24/24 01:24 07/24/24 01:24 Temperature 98 F Temperature Source Oral Pulse Rate 53 L Respiratory Rate 16 Respiratory Effort Normal Non-Labored Respiratory Depth Normal Respiratory Pattern Normal Blood Pressure 149/90 H Blood Pressure Mean 109 Pulse Ox 98 Oxygen Delivery Method Room Air Room Air Positive well nourished and well developed; Negative for cachectic, contractures or unkempt General Appearance ED: well developed and NAD; Negative for unkempt, cachectic or contractures Nutritional Appearance: Negative for cachectic HEENT Reports normocephalic atraumatic and trauma; Negative for contusion, hematoma or tenderness Eyes PERRL and EOMs intact bilaterally Neck full ROM, no lymphadenopathy and supple Chest Wall inspection of chest normal and palpation of chest normal Resp normal respiratory effort, no retractions and clear to auscultation bilaterally Cardio regular rate, regular rhythm, S1 normal heart sound, S2 normal heart sound and no murmurs GI non-tender, non-distended and no masses Palpation: soft; Negative for guarding or rebound tenderness present Back/Spine no CVA tenderness Back/Spine Narrative: Back and spine are nontender. Cervical Spine: Negative for cervical spine tenderness Thoracic Spine / Upper Back: Negative for thoracic spinal tenderness Lumbar Spine / Lower Back: Negative for lumbar spinal tenderness Neuro No oriented x3, moves all extremities and no focal motor deficits Neuro Narrative: Dementia. But awake and alert. Answers questions follows commands. Sensorium / Orientation: alert, oriented to person, oriented to place and confused; Negative for oriented to time Motor Exam: strength 5/5 throughout Psych mental status grossly normal and thought process normal Appearance: Negative for unkempt Skin Lesions: no lesions Rashes: no rashes MDM MDM MDM Narrative Medical decision making narrative: 83-year-old female complaining of right hip pain post fall concern for hip fracture versus dislocation. X-ray being obtained. Repeat exam at 3:25 AM unchanged. I did speak with the patient's extended-care facility. They are comfortable with her being discharged back to their facility and have the staff to care for with the pubic ramus fracture. There is really no reason to admitted to the hospital at this time. This is nonoperable. She will be given a dose of morphine for pain tonight. History & Record Review Discussion w/independent historian: Patient Additional record(s) reviewed:: Prior inpatient record, Prior outpatient record, Prior ED visit and Prior labs Radiography Diagnostic Testing: Clinical Impression(s) from Imaging Studies Hip/Pelvis X-Ray 07/24/24 01:50 IMPRESSION: Acute right superior ramus fracture. Right hip moderate degenerative changes. Reading [facility] Right hip and pelvis x-ray, 3 views, interpreted by myself and the radiologist. Shows acute right superior pubic ramus fracture. No hip fracture. Chronic changes and degenerative arthritis. Discharge Plan Triage Chief Complaint: Fall ED Provider: Jean Claude Harry Dx/Rx/DC Orders Clinical Impression: Fall, Fracture, pelvis closed, History of dementia Instructions: ED Pelvic Fracture Prescriptions: New hydrocodone-acetaminophen 5-325 mg tablet 1 tab PO Q6H PRN (Reason: pain) 3 Days Qty: 14 0RF No Action losartan [Cozaar] 50 MG tablet 50 mg PO DAILY atorvastatin 10 MG tablet 20 mg PO QHS acetaminophen [Tylenol Extra Strength] 500 MG tablet 500 mg PO DAILY PRN (Reason: fever or pain) Multiple Vitamin, Womens 1 EACH tablet 1 ea PO DAILY calcium carbonate-vitamin D3 1 EACH tablet 1 ea PO DAILY alendronate 70 mg tablet 70 mg PO QWEEK divalproex 125 mg tablet,delayed release (DR/EC) 125 mg PO QHS donepezil 10 mg tablet 10 mg PO DAILY ferrous sulfate 325 mg (65 mg iron) tablet 325 mg PO MOWEFR nystatin 100,000 unit/gram cream 1 applic topical BID PRN PRN (Reason: groin) memantine 28 mg capsule,sprinkle,ER 24hr 28 mg PO DAILY polyethylene glycol 3350 [Miralax] 17 gram/dose powder 17 g PO DAILY furosemide [Lasix] 20 mg tablet 20 mg PO DAILY buspirone 5 mg tablet 5 mg PO BID escitalopram oxalate 10 mg tablet 10 mg PO DAILY Primary Care Provider: Jairon Medel Referrals: Jairon Medel MD [Primary Care Provider] - As Needed Activity Restrictions/Additional Instructions: She has a superior pubic ramus fracture which is a pelvis fracture. These are not treated with surgery. They generally heal over weeks to months. She can do activity as tolerated. She may walk or be in a wheelchair or obviously lying in bed. Tylenol for pain. Clover as needed for pain also. Print Language: Macanese Disposition Disposition: Home, Self Care
--- NOTE | 2024-07-24 01:50 | RAD_ITS ---
PROCEDURE: HIP, UNI W/ PELVIS 2-3 VIEWS 07/24/2024 REASON FOR EXAM: FALL AND RIGHT HIP PAIN TECHNIQUE: HIP, UNI W/ PELVIS 2-3 VIEWS COMPARISON: None FINDINGS: Bones: Acute right superior ramus fracture is seen. Joints: Moderate right hip degenerative hanges are seen. Soft tissues: No obvious abnormalities. RAD/HIP, UNI W/ Pelvis 2-3 Views IMPRESSION: Acute right superior ramus fracture. Right hip moderate degenerative changes. Reading [facility]
--- OUTSIDE RECORDS SUMMARY | 2024-07-24 02:09 | XMS RPT_ITS | CCD ---
Author Organization [facility] Inform ion Partnership [facility] Care Team Providers Care Franchise Development Manager Name Role Phone Carla Dye MD Unavailable [phone] PAULA ALANIZ Referring Unavailable PAULA ALANIZ Referring Unavailable ADRIANA , ALANNA Herrera Primary Care Physician MICAHAR DO, DR GAO Primary Care Physician [phone] Billy PARKER MD, Dabrandenung Unavailable Stuart RN, Kesha Unavailable Unavailable Micahar DOLarry Primary Care Provider PAULA ALANIZ Attending Unavailable MARTHA, LARRY Primary Care Unavailable ROMAR DO, DR GAO Primary Care Unavailable ROMAR DO, DR GAO Attending Unavailable ROMAR DO, DR GAO Primary Care Unavailable ROMAR DO, DR GAO Attending Unavailable ROMAR DO, DR GAO Primary Care Unavailable ROMAR DO, DR GAO Attending Unavailable ROMAR DO, DR GAO Primary Care Unavailable ROMAR DO, DR GAO Attending Unavailable ROMAR DO, DR GAO Primary Care Unavailable MAURA PARKER, MAHAD Attending Unavailable MAURA PARKER, MAHAD Attending Unavailable ROMAR DO, DR GAO Primary Care Unavailable ROMAR DO, DR AGO Attending Unavailable ROMAR DO, DR GAO Primary Care Unavailable ROMAR DO, DR GAO Attending Unavailable ROMAR DO, DR GAO Primary Care Unavailable ROMAR DO, DR GAO Attending Unavailable ROMAR DO, DR GAO Primary Care Unavailable PATRICIA PARKER, DR LANGE Attending Unavailabl e ROMAR DO, DR GAO Primary Care Unavailable FAVIO DOSONNY Attending Unavailable ROMAR DO, DR GAO Primary Care Unavailable INES DENNIS MD Attending Unavail able ROMAR DO, DR GAO Primary Care Unavailable INES DENNIS MD Attending Unavail able ROMAR DO, DR GAO Primary Care Unavailable ROMAR DO, DR GAO Primary Care Unavailable ROMAR DO, DR GAO Attending Unavailable ROMAR DO, DR GAO Primary Care Unavailable ROMAR DO, DR GAO Attending Unavailable ROMAR DO, DR GAO Primary Care Unavailable ROMAR DO, DR GAO Attending Unavailable ROMAR DO, DR GAO Primary Care Unavailable ROMAR DO, DR GAO Attending Unavailable ROMAR DO, DR GAO Attending Unavailable ROMAR DO, DR GAO Primary Care Unavailable [place] RADIAGRAPH OPERATOR-NATURAL RESOURCE ECONOMIST, ELDA Admitting Unavail able ESPERANZA HOOVER MD Attending Unavailable ROMAR DO, DR GAO Primary Care Unavailable ROMAR DO, DR GAO Attending Unavailable ROMAR DO, DR GAO Primary Care Unavailable ROMAR DO, DR GAO Attending Unavailable ROMAR DO, DR GAO Primary Care Unavailable ROMAR DO, DR GAO Primary Care Unavailable ROMAR DO, DR GAO Attending Unavailable Deric PARKER, Dr. Hylton Primary Care Provider Lary CLEANING VALIDATION CONSULTANT-C, Jane Attending Provider Jairon Medel MD Attending Provider Unavaila katerina Medel MD, Dr. De La O Attending Provider Jairon Medel MD Referring Provider Unavaila Jairon Mccullough Attending Unavailthea Leos Jr., Warner Primary Care Unavailable Carrillo Hahnongbe Referring Unavailthea Leos Jr., Warner Primary Care Unavailable Goldie Hahnbe Attending Unavailthea Leos Jr., Warner Primary Care Unavailable Carrillo Hahnongmakenzie Attending Unavailthea Leos Jr., Warner Primary Care Unavailable Jairon Hahn Attending Unavailthea Leos Jr., Warner Primary Care Unavailable Gianfranco TREVIÑO Efsreekanthongmakenzie Attending Unavailthea Leos Jr., Warner Primary Care Unavailable Olejenifere KAMILA Efsreekanthongmakenzie Attending UnavailTracey TREVIÑO Efsreekanthongbe Referring UnavailJairon Webb Attending Unavailable Deric Rodriguez, Warner Primary Care Unavailable Lary CLEANING VALIDATION CONSULTANT, Jane Attending Unavailable Deric Rodriguez, Warner Primary Care Unavailable Lary CLEANING VALIDATION CONSULTANT, Jane Attending Unavailable Deric Rodriguez, Warner Primary Care Unavailable Deric Rodriguez, Warner Primary Care Unavailable Jairon Medel Attending Warner Zapata Jr. Primary Care Unavailable Jane Barth NP Attending Unavailable Jairon Hahn Attending Char Leos Jr., Warner Primary Care Unavailable Jairon Hahn Attending Char Leos Jr., Warner [facility] Care Unavailable Allergies Allergy Classification Reported Allergen(s) Allergy Type Date of Onset Reaction(s) Facility (1 source) Sulfacetamide Drug Allergy 4 rash [facility] Work Phone: (9 sources) Sulfonamides (Antibiotic); Translations: [SULFA (SULFONAMIDE ANTIBIOTICS)] Propensity to adverse reactions to drug (disorder) 8 Intolerance [facility] Other [place] [facility] Medications Current Medications Medication Drug Class(es) Dates Sig (Normalized) Sig (Original) acetaminophen 500 mg oral tablet (10 sources) Start: 06-27-2014 take 1 tablet by mouth once daily Acetaminophen (Tylenol Extra Strength) 500 MG tablet Active 500 mg PO DAILY April 20, 2017 12:00am acetaminophen 325 mg / HYDROcodone bitartrate 5 mg oral tablet (4 sources) Opioid Agonist Start: 04-27-2017 Hydrocodone-Acetami nophen 1 EACH tablet Active 1 NMA PO EVERY 6 HOURS NEEDED as needed for Severe Pain () 18 7 April 27, 2017 3:31pm anastrozole 1 mg oral tablet (20 sources) Aromatase Inhibitor Start: 09-28-2023 take 1 tablet by mouth once daily in the evening anastrozole 1 mg oral tablet 1 tab(s), Oral, qPM, # 90 tab(s), 0 Refill(s), Pharmacy: [facility]/pharmacy #[id number], 153.5, cm, 06/15/23 10:26:00 EDT, Height, kg, 06/15/23 10:26:00 EDT, Dosing Weight Start Date: 09/28/23 Status: Ordered Start: 03-16-2023 take 1 tablet by charles th once daily in the evening anastrozole 1 mg oral tablet 1 tab(s), Oral, qPM, # 90 tab(s), 1 Refill(s), Pharmacy: [facility]/pharmacy #[id number], 155.2, cm, 03/16/23 9:59:00 EST, Height, kg, 03/16/23 9:59:00 EST, Dosing Weight Start Date: 03/16/23 Status: Ordered Start: 09-30-2022 take 1 tablet by charles th once daily in the evening anastrozole 1 mg oral tablet 1 tab(s), Oral, qPM, # 90 tab(s), 1 Refill(s), [id number] 156.5, cm, 09/11/22 11:11:00 EDT, Height, kg, 09/11/22 11:11:00 EDT, Dosing Weight Start Date: 09/30/22 Status: Ordered Start: 11-21-2021 take 1 tablet by charles th once daily in the evening anastrozole 1 mg oral tablet 1 tab(s), Oral, qPM, # 90 tab(s), 1 Refill(s), Pharmacy: [facility] STORE [id number], 154.5, cm, 11/18/21 13:32:00 EDT, Height, kg, 11/18/21 13:32:00 EDT, Dosing Weight Start Date: 11/21/21 Status: Ordered Start: 03-20-2020 End: 04-05-2021 take 1 tablet by mouth once daily anastrozole 1 mg oral tablet 1 tab(s), Oral, qDay, # 90 tab(s), 1 Refill(s), Pharmacy: [facility] STORE [id number], 155, cm, 11/04/20 8:28:00 EDT, Height, kg, 11/11/20 8:26:00 EDT, Dosing Weight Start Date: 04/17/21 Status: Ordered Start: 01-12-2018 ARIMIDEX 1 MG TABS 1 tablet daily ANASTROZOLE [id number] Vidya Babin CHILD DEVELOPMENT PROFESSOR Comment on above: TAKE 1 TABLET BY CHARLES TH EVERY DAY aspirin 81 mg delayed release oral tablet (20 sources) Platelet Aggregation Inhibitor, Nonsteroidal Anti-inflammatory Drug Start: 10-05-2023 End: 04-02-2024 aspirin 81 mg oral delayed release tablet Dose : 81 mg = 1 tab(s), Oral, qAM, do not crush or chew, # 90 tab(s), 1 Refill(s), Pharmacy: [facility]/pharmacy #[id number], 153.5, cm, 06/15/23 10:26:00 EDT, Height, kg, 06/15/23 10:26:00 EDT, Dosing Weight Start Date: 10/05/23 Stop Date: 04/02/24 Status: Ordered Start: 03-05-2022 End: 05-20-2023 aspirin 81 mg oral delayed r elease tablet Dose : 81 mg = 1 tab(s), Oral, qAM, do not crush or chew, # 90 tab(s), 3 Refill(s), Pharmacy: [facility]/pharmacy #[id number], 154.3, cm, 04/16/22 16:12:00 EST, Height, kg, 04/16/22 16:12:00 EST, Dosing Weight Start Date: 05/25/22 Stop Date: 05/20/23 Status: Ordered Start: 07-09-2020 aspirin 325 mg oral tablet Dose : 325 mg = 1 tab(s), Oral, qDay, # 30 tab(s), 0 Refill(s) Start Date: 07/09/20 Status: Ordered atorvastatin 20 mg oral tablet (20 sources) HMG-CoA Reductase Inhibitor Start: 12-15-2023 End: 07-02-2024 atorvastatin 20 mg oral tablet Dose : 20 mg = 1 tab(s), Oral, qPM, # 100 tab(s), 1 Refill(s), Pharmacy: [facility]/pharmacy #[id number], 155, cm, 12/15/23 10:32:00 EST, Height, kg, 12/15/23 10:26:00 EST, Dosing Weight Start Date: 12/15/23 Stop Date: 07/02/24 Status: Ordered Quantity: 100.0 Unit: tab(s) Repeat number: 2 Start: 09-13-2023 End: 12-12-2023 atorvastatin 20 mg oral tabl et Dose : 20 mg = 1 tab(s), Oral, qPM, # 90 tab(s), 0 Refill(s), Pharmacy: [facility]/pharmacy #[id number], 153.5, cm, 06/15/23 10:26:00 EDT, Height, kg, 06/15/23 10:26:00 EDT, Dosing Weight Start Date: 09/13/23 Stop Date: 12/12/23 Status: Ordered Start: 01-29-2023 End: 07-28-2023 atorvastatin 20 mg oral tabl et Dose : 20 mg = 1 tab(s), Oral, qPM, # 90 tab(s), 1 Refill(s), [id number] 156.5, cm, 09/11/22 11:11:00 EDT, Height, kg, 09/11/22 11:11:00 EDT, Dosing Weight Start Date: 01/29/23 Stop Date: 07/28/23 Status: Ordered Start: 03-09-2022 End: 11-21-2022 atorvastatin 20 mg oral tabl et Dose : 20 mg = 1 tab(s), Oral, qPM, # 90 tab(s), 1 Refill(s), [id number], 154.3, cm, 04/16/22 16:12:00 EST, Height, kg, 04/16/22 16:12:00 EST, Dosing Weight Start Date: 05/25/22 Stop Date: 11/21/22 Status: Ordered Start: 08-22-2021 take 0.5 tablet by m outh once daily atorvastatin 20 mg oral tablet 0.5 tab(s), Oral, qDay, # 45 tab(s), 1 Refill(s), Pharmacy: [id number], 155, cm, 05/05/21 8:51:00 EDT, Height, kg, 05/05/21 8:51:00 EDT, Dosing Weight Start Date: 08/22/21 Status: Ordered Start: 11-06-2020 take 0.5 tablet by m outh once daily atorvastatin 20 mg oral tablet See Instructions, TAKE 1/2 TABLET EVERY DAY, # 45 tab(s), 1 Refill(s), [id number], 155, cm, 11/04/20 8:28:00 EDT, Height, kg, 11/04/20 8:28:00 EDT, Dosing Weight Start Date: 11/06/20 Status: Ordered Start: 10-27-2013 take 1 tablet by charles th at bedtime Atorvastatin 10 MG tablet Active 10 mg PO AT BEDTIME April 20, 2017 12:00am Comment on above: Take 10 mg by mouth once daily. calcium carbonate 1500 mg / cholecalciferol 800 unt oral tablet (4 sources) Vitamin D Start: 04-21-19 18 Calcium Carbonate-Vitamin D3 1 EACH tablet Active 1 NMA PO THREE TIMES A DAY April 20, 2017 12:00am celecoxib 100 mg oral capsule (17 sources) Nonsteroidal Anti-inflammatory Drug Start: 08-11-19 take 1 capsule by mouth once daily in the morning celecoxib 100 mg oral capsule 1 cap(s), Oral, qAM, # 90 cap(s), 0 Refill(s), [id number], 156.2, cm, 07/01/22 6:28:00 EDT, Height, kg, 07/01/22 6:28:00 EDT, Dosing Weight Start Date: 08/10/22 Status: Ordered Start: 12-07-2016 take 1 capsule by [facility] once daily in the morning celecoxib 100 mg oral capsule 1 cap(s), Oral, qAM, # 90 cap(s), 1 Refill(s), Pharmacy: [id number], 154.3, cm, 04/16/22 16:12:00 EST, Height, kg, 04/16/22 16:12:00 EST, Dosing Weight Start Date: 05/21/22 Status: Ordered Start: 10-27-2013 CELEBREX 100 M G CAPS 1-2 capsules weekly as needed CELECOXIB [id number] Vidya Babin LPN Comment on above: Take 100 mg by mouth once daily. ciclopirox 80 mg/ml topical solution (6 sources) Start: 03-05-2022 End: 01-06-2024 ciclopirox 8% topical solution Apply 1 angelica, Topical, Daily, apply to affected toenails and surrounding area once daily, remove with alcohol every 7 days prior to reapplication, Apply to: toenails, X 48 week(s), # 6.6 mL, 1 Refill(s), [id number], 154.3, cm, 03/05/22 9:44:00 EST, Height, 75.6 Start Date: 03/05/22 Stop Date: 01/06/24 Status: Ordered Clobetasol (3 sources) Corticosteroid Start: 01-20-2021 clobetasol 0.05% topical ointment See Instructions, APPLY TO AFFECTED AREA TWICE A DAY, # 15 gram(s), 1 Refill(s), Pharmacy: [facility] ST[facility], 155, cm, 11/04/20 8:28:00 EDT, Height, 81.2, kg, 11/11/20 8:26:00 EDT, Dosing Weight Start Date: 01/20/21 Status: Ordered Start: 07-30-2020 Temovate 0.05% topical ointment Apply 1 angelica, Topical, BID, # 15 gram(s), 0 Refill(s), [id number]int[facility], 155, cm, 07/23/20 8:15:00 EDT, Height, 86.1, kg, 07/30/20 8:40:00 EDT, Dosing Weight Start Date: 07/30/20 Status: Ordered cyclobenzaprine hydrochloride 10 mg oral tablet (9 sources) Muscle Relaxant Start: 10-27-2013 take 1 tablet by mouth once daily Cyclobenzaprine 10 MG tablet Active 10 mg PO DAILY April 20, 2017 12:00am Comment on above: Take 10 mg by mouth once daily as needed. donepezil hydrochloride 10 mg oral tablet (17 sources) Start: 06-15-2023 donepezil 10 mg oral tablet Dose : 10 mg = 1 tab(s), Oral, qHS, # 30 tab(s), 0 Refill(s) Start Date: 06/15/23 Status: Ordered Quantity: 30.0 Unit: tab(s) Repeat number: 1 Start: 09-30-2022 donepezil 5 mg oral tablet Dose : 5 mg = 1 tab(s), Oral, qHS, # 90 tab(s), 1 Refill(s), [id number] 156.5, cm, 09/11/22 11:11:00 EDT, Height, kg, 09/11/22 11:11:00 EDT, Dosing Weight Start Date: 09/30/22 Status: Ordered Start: 03-17-2022 donepezil 5 mg oral tablet Dose : 5 mg = 1 tab(s), Oral, qHS, # 30 tab(s), 0 Refill(s) Start Date: 03/17/22 Status: Ordered Start: 04-21-2021 take 1 tablet by charles once daily at bedtime donepezil 5 mg oral tablet 1 tab(s), Oral, qHS, # 90 tab(s), 1 Refill(s), Pharmacy: [facility] STORE [id number], 155, cm, 11/04/20 8:28:00 EDT, Height, kg, 11/11/20 8:26:00 EDT, Dosing Weight Start Date: 04/21/21 Status: Ordered Start: 07-09-2020 donepezil 5 mg oral tablet Dose : 5 mg = 1 tab(s), Oral, qHS, # 30 tab(s), 0 Refill(s) Start Date: 07/09/20 Status: Ordered Econazole (2 sources) Azole Antifungal Start: 08-18-2019 Econazole Nitrate 1% topical cream APPLY TO FEET AT BEDTIME Start Date: 08/18/19 Status: Ordered ferrous sulfate 325 mg oral tablet (6 sources) Start: 12-19-2023 End: 03-18-2024 ferrous sulfate 325 mg (65 mg elemental iron) oral tablet Dose : 325 mg = 1 tab(s), Oral, Wed/Wed/Wed, may take with food to minimize abdominal discomfort, # 39 tab(s), 0 Refill(s), [id number] 155, cm, 12/15/23 10:32:00 EST, Height, kg, 12/15/23 10:26:00 EST, Dosing Weight Start Date: 12/19/23 Stop Date: 03/18/24 Status: Ordered Quantity: 39.0 Unit: tab(s) Repeat number: 1 gabapentin 300 mg oral capsule (9 sources) Anti-epileptic Agent Start: 09-17-2016 take 1 capsule by mouth twice daily Gabapentin (Neurontin) 300 MG capsule Active 300 mg PO TWICE A DAY April 20, 2017 12:00am Comment on above: Take 300 mg by mouth twice daily. hydroCHLOROthiazide 25 mg oral tablet (9 sources) Thiazide Diuretic Start: 05-23-2015 take 1 tablet by mouth once daily Hydrochlorothiazide 25 MG tablet Active 25 mg PO DAILY April 20, 2017 12:00am Comment on above: Take 25 mg by mouth once daily. Lidocaine (2 sources) Antiarrhythmic, Amide Local Anesthetic Start: 07-23-2020 lidocaine 4% topical cream Apply 1 angelica, Topical, TID, # 5 gram(s), 0 Refill(s), Pharmacy: [id number], Cream, 155, cm, 07/23/20 8:15:00 EDT, Height, 85.2, kg, 07/23/20 8:15:00 EDT, Dosing Weight Start Date: 07/23/20 Status: Ordered lisinopril 20 mg oral tablet (14 sources) Angiotensin Converting Enzyme Inhibitor Start: 03-16-2023 take 1 tablet by mouth once daily in the morning lisinopril 20 mg oral tablet 1 tab(s), Oral, qAM, # 90 tab(s), 1 Refill(s), [id number] 155.2, cm, 03/16/23 9:59:00 EST, Height, kg, 03/16/23 9:59:00 EST, Dosing Weight Start Date: 03/16/23 Status: Ordered Start: 10-15-2022 take 1 tablet by charles th once daily in the morning lisinopril 20 mg oral tablet 1 tab(s), Oral, qAM, # 90 tab(s), 1 Refill(s), [id number] 156.5, cm, 09/11/22 11:11:00 EDT, Height, kg, 09/11/22 11:11:00 EDT, Dosing Weight Start Date: 10/15/22 Status: Ordered Start: 04-13-2022 take 1 tablet by charles th once daily in the morning lisinopril 20 mg oral tablet 1 tab(s), Oral, qAM, # 90 tab(s), 1 Refill(s), [id number] 154.3, cm, 03/17/22 9:37:00 EST, Height, kg, 03/17/22 9:37:00 EST, Dosing Weight Start Date: 04/13/22 Status: Ordered Start: 09-02-2021 take 1 tablet by charles th once daily lisinopril 20 mg oral tablet 1 tab(s), Oral, qDay, # 90 tab(s), 1 Refill(s), Pharmacy: [id number], 155, cm, 05/05/21 8:51:00 EDT, Height, kg, 05/05/21 8:51:00 EDT, Dosing Weight Start Date: 09/02/21 Status: Ordered Start: 10-22-2020 take 1 tablet by charles th once daily lisinopril 20 mg oral tablet See Instructions, TAKE 1 TABLET BY MOUTH EVERY DAY, # 90 tab(s), 1 Refill(s), Pharmacy: [facility] STORE 47096, 155, cm, 07/23/20 8:15:00 EDT, Height, kg, 07/30/20 8:40:00 EDT, Dosing Weight Start Date: 10/22/20 Status: Ordered losartan potassium 50 mg oral tablet (15 sources) Angiotensin 2 Receptor Aniyah Start: 10-27-2013 End: 07-02-2024 take 1 tablet by mouth once daily Losartan (Cozaar) 50 MG tablet Active 50 mg PO DAILY April 20, 2017 12:00am 24 hr memantine hydrochloride 28 mg extended release oral capsule (20 sources) P-yaqcgq-J-asparta te Receptor Antagonist Start: 01-18-2024 memantine 28 mg oral capsule, extended release Dose : 28 mg = 1 cap(s), Oral, qDay, per neuro, # 30 cap(s), 0 Refill(s), other reason (Rx) Start Date: 01/18/24 Status: Ordered Quantity: 30.0 Unit: cap(s) Repeat number: 1 Start: 01-29-2023 take 1 tablet by charles th once daily in the morning memantine 5 mg oral tablet 1 tab(s), Oral, qAM, # 90 tab(s), 1 Refill(s), [id number] 156.5, cm, 09/11/22 11:11:00 EDT, Height, kg, 09/11/22 11:11:00 EDT, Dosing Weight Start Date: 01/29/23 Status: Ordered Start: 05-25-2022 take 1 tablet by charles once daily in the morning memantine 5 mg oral tablet 1 tab(s), Oral, qAM, # 90 tab(s), 1 Refill(s), [id number] 154.3, cm, 04/16/22 16:12:00 EST, Height, kg, 04/16/22 16:12:00 EST, Dosing Weight Start Date: 05/25/22 Status: Ordered Start: 07-14-2021 take 1 tablet by [facility] once daily memantine 5 mg oral tablet 1 tab(s), Oral, qDay, # 90 tab(s), 1 Refill(s), Pharmacy: [id number], 155, cm, 05/05/21 8:51:00 EDT, Height, kg, 05/05/21 8:51:00 EDT, Dosing Weight Start Date: 07/14/21 Status: Ordered Start: 04-15-2021 take 1 tablet by [facility] once daily memantine 5 mg oral tablet 1 tab(s), Oral, qDay, # 90 tab(s), 0 Refill(s), Pharmacy: [facility], 155, cm, 11/04/20 8:28:00 EDT, Height, kg, 11/11/20 8:26:00 EDT, Dosing Weight Start Date: 04/15/21 Status: Ordered Start: 10-17-2020 take 1 tablet by [facility] once daily memantine 5 mg oral tablet See Instructions, TAKE 1 TABLET BY MOUTH EVERY DAY, # 90 tab(s), 0 Refill(s), Pharmacy: [facility], 155, cm, 07/23/20 8:15:00 EDT, Height, kg, 07/30/20 8:40:00 EDT, Dosing Weight Start Date: 10/17/20 Status: Ordered Multivitamin preparation (17 sources) Start: 03-17-2022 take 1 tablet by mouth once daily Multivitamin Dose = 1 tab(s), Oral, Daily, 0 Refill(s) Start Date: 03/17/22 Status: Ordered Repeat number: 1 Start: 03-17-2022 take 1 tablet by [facility] once daily Multivitamin Dose = 1 tab(s), Oral, Daily, 0 Refill(s) Start Date: 03/17/22 Status: Ordered Xsnntnxoovmj-Ep-Iylv-Mineral s (Multiple Vitamins For Women) 1 EACH tablet (4 sources) Start: 04-20-2017 take 1 tablet by mouth once daily Koikvvgpxnjb-Kc-Wgbq-Minerals (Multiple Vitamins For Women) 1 EACH tablet Active 1 NMA PO DAILY April 20, 2017 12:00am mupirocin 0.02 mg/mg topical ointment (2 sources) RNA Synthet ase Inhibit or Antibac terial Start: 06-19-2022 mupirocin 2% topical ointmen t Apply 1 angelica, Topical, BID, Bilateral intranasal application twice daily x 5 days pre-surgery., Apply to: nostril, each, # 22 gram(s), 0 Refill(s), Pharmacy: [facility]acy #[id number], Ointment, 154.3, cm, 05/28/22 7:35:00 EDT, Height, 77 Start Date: 06/19/22 Status: Ordered nystatin [id number] unt/ml topic al cream (1 source) Polyene Antifun gal Start: 09-11-2022 End: 11-10-2022 nystatin 100,000 units/g topical cream Apply 1 angelica, Topical, BID, PRN Rash, Apply to the affected area twice daily until healing complete., # 30 gram(s), 1 Refill(s), [id number], Cream, 156.5, cm, 09/11/22 11:11:00 EDT, Height, 73.1, kg, 09/11/22 11:11:00 EDT, Dosing Weight Start Date: 09/11/22 Stop Date: 11/10/22 Status: Ordered phenazopyridine hydrochlorid e 100 mg oral tablet (1 source) Start: 01-21-2024 End: 01-24-2024 Pyridium 100 mg oral tablet Dose : 100 mg = 1 tab(s), Oral, BID, X 3 day(s), # 6 tab(s), 0 Refill(s), 01/24/24 11:14:00 AM EST Start Date: 01/21/24 Stop Date: 01/24/24 Status: Ordered polyethylene glycol 3350 170 00 mg powder for oral solution (1 source) Osmotic Laxativ e Start: 02-10-2024 MiraLax oral powder for reconstitution Oral, Every other day, 0 Refill(s) Start Date: 02/10/24 Status: Ordered Repeat number: 1 sulfamethoxazole 800 mg / trimethoprim 160 mg oral tablet (1 source) Dihydro folate Reducta se Inhibit or Antibac terial, Sulfona mide Antimic robial Start: 12-15-2023 End: 12-18-2023 take 1 tablet by mouth every twelve hours sulfamethoxazole-trimethoprim 800 mg-160 mg oral tablet Dose = 1 tab(s), Oral, q12h, drink plenty of fluids, X 3 day(s), # 6 tab(s), 0 Refill(s), Pharmacy: [facility] #[id number], 155, cm, 12/15/23 10:32:00 EST, Height, 68.6, kg, 12/15/23 10:26:00 EST, Dosing Weight Start Date: 12/15/23 Stop Date: 12/18/23 Status: Ordered divalproex sodium 125 mg delayed release oral tablet (4 sources) Mood Stabili zer, Anti-ep ileptic Agent Start: 12-29-2023 divalproex sodium 125 mg ora l delayed release tablet Dose : 250 mg = 2 tab(s), Oral, qDay, TAKE 1 TABLET BY MOUTH TWICE A DAY Start Date: 12/29/23 Status: Ordered Repeat number: 1 Completed/Discontinued Medications Medication Drug Class(es) Dates Sig (Normalized) Sig (Original) alendronic acid 70 mg oral tablet (10 sources) Bisphosphonate Start: 12-15-2023 End: 05-31-2024 take 6-8 [oz_av] by mouth once daily alendronate 70 mg oral tablet Dose : 70 mg = 1 tab(s), Oral, qWeek, with 6-8 oz plain water, at least 30 minutes before first food, beverage, or medication of the day. Sit up for at least 30 minutes after taking., # 12 tab(s), 1 Refill(s), Pharmacy: [facility]acy #[id number], 155, cm, 12/15/23 10:32:00 EST, Height, kg, 12/15/23 10:26:00 EST, Dosing Weight Start Date: 12/15/23 Stop Date: 05/31/24 Status: Ordered Quantity: 12.0 Unit: tab(s) Repeat number: 2 Start: 06-15-2023 End: 11-30-2023 take 6-8 [oz_av] by mouth once daily alendronate 70 mg oral tablet Dose : 70 mg = 1 tab(s), Oral, qWeek, with 6-8 oz plain water, at least 30 minutes before first food, beverage, or medication of the day. Sit up for at least 30 minutes after taking., # 12 tab(s), 1 Refill(s), Pharmacy: [facility] #[id number], 153.5, cm, 06/15/23 10:26:00 EDT, Height, kg, 06/15/23 10:26:00 EDT, Dosing Weight Start Date: 06/15/23 Stop Date: 11/30/23 Status: Ordered ascorbic acid 1000 mg oral tablet (2 sources) Vitamin C take 1 tablet by mouth twice daily Ascorbic Acid 1,000 mg tablet Take 1,000 mg by mouth twice daily. 0 Active Comment on above: Take 1,000 mg by charles twice daily. Atenolol (10 sources) beta-Adrenergic Aniyah Start: 12-06-2021 End: 12-06-2021 atenolol Start: 12/06/21 9:00:00 EDT, Dose = 50 mg, = 1 tab(s), Oral, 0, 12/04/21 8:45:00 EDT Start Date: 12/06/21 Stop Date: 12/06/21 Status: Completed Start: 02-26-2017 take 2 tablets by mo [facility] once daily atenolol (TENORMIN) 50 mg tablet Take 100 mg by mouth once daily. 3 02/26/2017 Active Start: 10-27-2013 take 1 tablet by charles once daily Atenolol 100 MG tablet Active 100 mg PO DAILY April 20, 2017 12:00am Comment on above: Take 100 mg by mouth once daily. Calcium (1 source) Phosphate Binder, Calcium Start: 014 CALCIUM 600 + D TABS 1 tablet daily CALCIUM CARB-CHOLECALCIFEROL TABS [id number] Vidya Babin [employer]ILD DEVELOPMENT PROFESSOR calcium carbonate 1500 mg oral tablet (12 sources) Start: 023 End: 024 calcium (as carbonate) 600 mg oral tablet Dose : 600 mg = 1 tab(s), Oral, qDay, # 90 tab(s), 3 Refill(s), Pharmacy: [facility]/pharmacy #[id number], 156.5, cm, 09/11/22 11:11:00 EDT, Height, kg, 09/11/22 11:11:00 EDT, Dosing Weight Start Date: 01/25/23 Stop Date: 01/20/24 Status: Ordered Quantity: 90.0 Unit: tab(s) Repeat number: 4 Calcium Carbonate / vitamin D3 (2 sources) take 3 tablets by mouth once daily CALCIUM CARBONATE/VITAMIN D3 (CALCIUM + D ORAL) Take 3 tablets by mouth once daily. 0 Active Comment on above: Take 3 tablets by mo [facility] once daily. 1 ml denosumab 60 mg/ml prefilled syringe (2 sources) RANK Ligand Inhibitor Start: 024 End: 026 denosumab 60 mg/mL subcutaneous solution Dose : 60 mg = 1 mL, Subcutaneous, q6mo, M81.0, # 1 mL, 3 Refill(s), Osteoporosis Start Date: 03/16/23 Stop Date: 03/05/25 Status: Ordered docosahexaenoic acid/epa (FISH OIL ORAL) (2 sources) take 1 capsule by mouth once daily docosahexaenoic acid/epa (FISH OIL ORAL) Take 1 capsule by mouth once daily. 0 Active Comment on above: Take 1 capsule by mo [facility] once daily. gabapentin 10 % cmap (2 sources) gabapentin 10 % cmap Apply 1 application to affected area once daily. 0 Active Comment on above: Apply 1 application to affected area once daily. Ginkgo biloba extract (2 sources) take 1 tablet by mouth once daily ginkgo biloba (GINKOBA ORAL) Take 1 tablet by mouth once daily. 0 Active Comment on above: Take 1 tablet by charles th once daily. hydrALAZINE (14 sources) Arteriolar Vasodilator Start: End: hydrALAZINE Start: 12/06/21 12:25:00 EDT, Dose = 25 mg, = 1 tab(s), Oral, 0, 12/06/21 11:21:00 EDT Start Date: 12/06/21 Stop Date: 12/06/21 Status: Completed Start: 08-03-2018 take 1 tablet by charles th once daily in the morning hydrALAZINE 25 mg oral tablet 1 tab(s), Oral, qAM, # 90 tab(s), 1 Refill(s), Pharmacy: [facility] STORE [id number], 154.5, cm, 11/18/21 13:32:00 EDT, Height, kg, 11/18/21 13:32:00 EDT, Dosing Weight Start Date: 11/21/21 Status: Ordered Comment on above: Take 25 mg by mouth once daily. MULTIPLE VITAMIN (1 source) Start: 10-27-2013 MULTIVITAMINS CAPS 1 capsule daily MULTIPLE VITAMIN [id number] [facility] [place] multivitamin tablet (2 sources) take 1 tablet by mouth once daily multivitamin tablet Take 1 tablet by mouth once daily. 0 Active Comment on above: Take 1 tablet by charles th once daily. Problems Active Problems Problem Classification Problem Date Documented Da te Episodic/Chronic Cancer of breast (20 sources) Malignant tumor of breast ; Translations: [Overlapping malignant neoplasm of female breast] Onset: 05-20-2017 05-09-2018 Chronic Comment on above: left Cancer of breast (5 sources) History of malignant neoplasm of breast; Translations: [Personal history of malignant neoplasm of breast] Onset: 04-06-2022 Episodic Chronic kidney disease (18 sources) Chronic kidney disease stage 3A 03-09-2022 Chronic Conditions associated with dizziness or vertigo (2 sources) Dizziness and giddiness; Translations: [Dizziness and giddiness] Onset: 12-03-2021 Episodic Congestive heart failure; nonhypertensive (1 source) Diastolic heart failure; Translations: [Unspecified diastolic (congestive) heart failure] Onset: 02-10-2024 Chronic Deficiency and other anemia (18 sources) Anemia 03-05-2022 Episodic Delirium, dementia, and amnestic and other cognitive disorders (14 sources) Dementia; Translations: [Unspecified dementia without behavioral disturbance] Onset: 02-10-2024 03-16-2023 Chronic Diabetes mellitus without complication (20 sources) Impaired glucose tolerance; Translations: [Hyperglycemia] Onset: 11-01-2014 11-01-2014 Episodic Disorders of lipid metabolism (20 sources) Mixed hyperlipidemia 08-18-2019 Chronic Essential hypertension (16 sources) Hypertensive disorder 08-18-2019 Chronic Genitourinary symptoms and ill-defined conditions (6 sources) Increased frequency of urination; Translations: [Frequency of micturition] Onset: 12-09-2023 Episodic Hypertension with complications and secondary hypertension (1 source) Hypertensive chronic kidney disease with stage 1 through stage 4 chronic kidney disease, or unspecified chronic kidney disease; Translations: [Hypertensive chronic kidney disease with stage 1 through stage 4 chronic kidney disease, or unspecified chronic kidney disease] Onset: 07-12-2024 Chronic Malaise and fatigue (1 source) Asthenia; Translations: [Weakness] Onset: 02-10-2024 Episodic Mycoses (18 sources) Onychomycosis of toenails 03-05-2022 Episodic Nonmalignant breast conditions (20 sources) Breast lump 05-27-2022 Episodic Nutritional deficiencies (1 source) Vitamin D deficiency; Translations: [Vitamin D deficiency, unspecified] Onset: 11-01-2014 11-01-2014 Chronic Osteoarthritis (20 sources) Osteoarthritis 08-18-2019 Chronic Osteoporosis (12 sources) Osteoporosis 03-18-2023 Chronic Other bone disease and musculoskeletal deformities (18 sources) Hyperostosis interna frontalis 03-05-2022 Episodic Other connective tissue disease (20 sources) Pain in right arm 05-05-2021 Episodic Other connective tissue disease (12 sources) Cogwheel muscle rigidity 03-18-2023 Episodic Other ear and sense organ disorders (1 source) Impacted cerumen in left ear; Translations: [Impacted cerumen, left ear] Onset: 12-25-2021 Episodic Other female genital disorders (20 sources) Lesion of vulva 07-23-2020 Episodic Other fractures (4 sources) Compression fracture of lumbar spine 12-29-2023 Episodic Other hereditary and degenerative nervous system conditions (1 source) Degenerative disease of nervous system, unspecified; Translations: [Degenerative disease of nervous system, unspecified] Onset: 05-25-2024 Chronic Other nervous system disorders (1 source) Secondary parkinsonism, unspecified; Translations: [Secondary parkinsonism, unspecified] Onset: 07-12-2024 Chronic Other nervous system disorders (1 source) Unsteadiness present; Translations: [Unsteadiness on feet] Onset: 12-03-2021 Episodic Other nervous system disorders (1 source) Incoordination; Translations: [Other lack of coordination] Episodic Other non-traumatic joint disorders (18 sources) Lesion of toe 03-05-2022 Episodic Other nutritional; endocrine; and metabolic disorders (1 source) Metabolic syndrome X; Translations: [Metabolic syndrome] Onset: 11-01-2014 11-01-2014 Chronic Other screening for suspected conditions (not mental disorders or infectious disease) (3 sources) Encounter for screening for other disorder; Translations: [Ultrasonography of breast abnormal] Onset: 05-18-2017 Episodic Residual codes; unclassified (20 sources) Memory impairment 05-02-2020 Episodic Residual codes; unclassified (20 sources) Postmenopausal state 11-02-2019 Episodic Residual codes; unclassified (13 sources) Not for resuscitation 09-11-2022 Episodic Residual codes; unclassified (1 source) Edema, unspecified; Translations: [Edema, unspecified] Onset: 05-31-2024 Episodic Spondylosis; intervertebral disc disorders; other back problems (1 source) Lumbar spondylosis with myelopathy; Translations: [Spondylosis without myelopathy or radiculopathy, lumbar region] Onset: 11-01-2014 11-01-2014 Chronic Spondylosis; intervertebral disc disorders; other back problems (2 sources) Spinal stenosis of lumbar region; Translations: [Sciatica] Onset: 11-01-2014 11-01-2014 Episodic Unclassified (6 sources) Patient encounter status 11-02-2019 Unclassified (1 source) Dementia in other diseases classified elsewhere, unspecified severity, with agitation; Translations: [Dementia in other diseases classified elsewhere, unspecified severity, with agitation] Onset: 07-12-2024 Unclassified (1 source) Dementia in other diseases classified elsewhere, moderate, with agitation; Translations: [Dementia in other diseases classified elsewhere, moderate, with agitation] Onset: 05-31-2024 Urinary tract infections (2 sources) Urinary tract infection, site not specified; Translations: [Urinary tract infection, site not specified] Onset: 12-15-2023 Episodic Past or Other Problems Problem Classification Problem Date Documented Da te Episodic/Chronic Unclassified (1 source) Problem Results Test Name Value Interpretation Reference Range Facility Absolute lymphocyte countOrd ered By: Jairon Medel on 05-29-2024 Lymphocytes Auto (Unsp spec) [#/Vol] 2.09 10*3/uL 0.83-4.51 [facility] Absolute neutrophil countOrd ered By: Jairon Medel on 05-29-2024 Neutrophils (Bld) [#/Vol] 3.4 10*3/uL 2.0-7.7 [facility] Anion gap in Serum or Plasma Ordered By: Jairon Medel on 05-29-2024 Anion gap [Moles/Vol] 10 mmol/L 5-15 [facility] Automated lymphocyte count a s percentage of total leukocytesOrdered By: Jairon Medel on 05-29-2024 Lymphocytes/100 WBC Auto (Unsp spec) 34.4 % 19-41 [facility] BUN/creatinine ratioOrdered By: Jairon Medel on 05-29-2024 Urea nitrogen/Creatinine [Mass ratio] 16.9 mg/mg 10-20 [facility] Basophil percentageOrdered B y: Jairon Medel on 05-29-2024 Basophils/100 WBC (Bld) 1.2 % High 0-1 [facility] Bilirubin directOrdered By: Jairon Medel on 05-29-2024 Bilirubin.direct [Mass/Vol] 0.17 mg/dL 0.00-0.30 [facility] Bilirubin, totalOrdered By: Carrilolmattoonmakenzie Medel on 05-29-2024 Bilirubin [Mass/Vol] 0.35 mg/dL 0.00-1.30 [facility] Carbon dioxide, total [Moles /volume] in Central venous bloodOrdered By: Jairon Medel on 05-29-2024 CO2 [Moles/Vol] 25.1 mmol/L 21.0-32.0 [facility] Chloride assayOrdered By: Pooja Medel on 05-29-2024 Chloride [Moles/Vol] 105 mmol/L 98-108 [facility] Eosinophil percentageOrdered By: Jairon Medel on 05-29-2024 Eosinophils/100 WBC (Bld) 1.6 % 0-5 [facility] Erythrocyte distribution wid th (RBC) [Ratio]Ordered By: Jairon Medel on 05-29-2024 Erythrocyte distribution width (RBC) [Entitic vol] 41.0 fL 35.1-43.9 [facility] Erythrocyte distribution wid th ratioOrdered By: Jairon Medel on 05-29-2024 Erythrocyte distribution width (RBC) [Ratio] 13.1 % 11.6-14.6 [facility] Erythrocyte distribution wid th standard deviationOrdered By: Jairon Medel on 05-29-2024 Erythrocyte distribution width (RBC) [Ratio] 41.0 fl 35.1-43.9 [facility] GFR/1.73 sq M.predicted hua g non-blacks MDRD (S/P/Bld) [Vol rate/Area]Ordered By: Jairon Medel on 05-29-2024 Estimated GFR (MDRD) Non-Af Amer 50 Low >60 [facility] Comment on above: mL/min/1.73m2 CKD-EP I Creatinine Equation (2020) Glomerular filtration rate ( GFR) estimation/1.73 sq m using serum, plasma, or whole bOrdered By: Jairon Medel on 05-29-2024 GFR/1.73 sq M.predicted among non-blacks MDRD (S/P/Bld) [Vol rate/Area] 50 mL/min/{1.73_m2} Low >60 [facility] Comment on above: mL/min/1.73m2 CKD-EP I Creatinine Equation (2020) Hematocrit Auto (Bld) [Volum e fraction]Ordered By: Jairon Medel on 05-29-2024 Hematocrit (Bld) [Volume fraction] 33.4 % Low 37-47 [facility] Hemoglobin measurementOrdere d By: Jairon Medel on 05-29-2024 Hemoglobin (Bld) [Mass/Vol] 10.9 g/dL Low 12.0-15.0 [facility] Immature granulocytes/100 WB C Auto (Bld)Ordered By: Jairon Medel on 05-29-2024 Immature granulocytes/100 WBC (Bld) 0.200 % 0.0-0.9 [facility] Comment on above: IG% - Immature Granu locytes (promyelocytes, myelocytes and metamyelocytes) > 1% indicates that a LEFT SHIFT is Present. Laboratory - Chemistry and C hemistry - challengeOrdered By: Jairon Medel on 05-29-2024 AST [Catalytic activity/Vol] 20 U/L <32 [facility] Lymphocytes Auto (Unsp spec) [#/Vol]Ordered By: Jairon Medel on 05-29-2024 Lymphocytes (Bld) [#/Vol] 2.09 10*3/uL 0.83-4.51 [facility] Lymphocytes/100 WBC Auto (Un sp spec)Ordered By: Jairon Medel on 05-29-2024 Lymphocytes/100 WBC (Bld) 34.4 % 19-41 [facility] MCV (mean corpuscular volume ) determinationOrdered By: Efmargarette Cortezjenifere on 05-29-2024 MCV (RBC) [Entitic vol] 85.9 fL 81-99 [facility] Mean corpuscular hemoglobin (MCH) determinationOrdered By: Goldiemakenzie Torojenifersophia on 05-29-2024 MCH (RBC) [Entitic mass] 28.0 pg 27.0-32.0 [facility] Mean corpuscular hemoglobin concentration (MCHC) determinationOrdered By: Poojamargarette Torojenifersophia on 05-29-2024 MCHC (RBC) [Mass/Vol] 32.6 g/dL 32-36 [facility] Mean platelet volume determi nationOrdered By: Goldiemakenzie Torojenifersophia on 05-29-2024 Platelet mean volume (Bld) [Entitic vol] 10.3 fL 6.2-12.0 [facility] Monocyte percentageOrdered B y: Jairon Cortezjenifersophia on 05-29-2024 Monocytes/100 WBC (Bld) 7.6 % 0-10 [facility] Neutrophil percentageOrdered By: Jairon Cortezjenifere on 05-29-2024 Neutrophils/100 WBC (Bld) 55.0 % 47-70 [facility] Nucleated red blood cell per centageOrdered By: Jairon Cortezjenifere on 05-29-2024 Nucleated RBC/100 WBC (Bld) [Ratio] 0 % 0-5 [facility] Platelet countOrdered By: Ef margarette Cortezjenifersophia on 05-29-2024 Platelets (Bld) [#/Vol] 247 10*3/uL 150-450 [facility] Potassium (Unsp spec) [Mass/ Vol]Ordered By: Poojasreekanthmahadmakenzie Torojenifersophia on 05-29-2024 Potassium [Moles/Vol] 4.3 mmol/L 3.3-5.1 [facility] Potassium measurement (mass/ volume)Ordered By: Jairon Torojenifersophia on 05-29-2024 Potassium (Unsp spec) [Mass/Vol] 4.3 mmol/L 3.3-5.1 [facility] RBC Auto (Bld) [#/Vol]Ordere d By: Jairon Medel on 05-29-2024 RBC (Bld) [#/Vol] 3.89 10*6/uL Low 4.2-5.4 [facility] Serum creatinine measurement (mass/volume)Ordered By: Jairon Medel on 05-29-2024 Creatinine [Mass/Vol] 1.08 mg/dL 0.70-1.20 [facility] Serum globulin measurementOr dered By: Jairon Medel on 05-29-2024 Globulin (S) [Mass/Vol] 2.5 g/dL 2.2-4.2 [facility] Serum glucose measurement (m ass/volume)Ordered By: Jairon Medel on 05-29-2024 Glucose [Mass/Vol] 89 mg/dL 70-99 [facility] Serum or plasma alanine crane otransferase (ALT) measurementOrdered By: Jairon Medel on 05-29-2024 ALT [Catalytic activity/Vol] 11 U/L <35 [facility] Serum or plasma albumin krissy urement (mass/volume)Ordered By: Jairon Medel 05-29-2024 Albumin [Mass/Vol] 4.0 g/dL 3.4-4.8 [facility] Serum or plasma alkaline luis sphatase measurementOrdered By: Jairon Medel 05-29-2024 ALP [Catalytic activity/Vol] 62 U/L 35-104 [facility] Serum or plasma calcium krissy urement (mass/volume)Ordered By: Jairon Medel on 05-29-2024 Calcium [Mass/Vol] 9.8 mg/dL 7.6-11.0 [facility] Serum or plasma urea nitroge n measurement (mass/volume)Ordered By: Jairon Medel on 05-29-2024 Urea nitrogen [Mass/Vol] 18 mg/dL 4-19 [facility] Sodium levelOrdered By: Carrillo Medel on 05-29-2024 Sodium [Moles/Vol] 140 mmol/L 133-145 [facility] Total proteinOrdered By: Masoud Medel on 05-29-2024 Protein [Mass/Vol] 6.4 g/dL 5.9-8.4 [facility] White blood cell (WBC) count Ordered By: Jairon Medel on 05-29-2024 WBC (Bld) [#/Vol] 6.1 10*3/uL 4.4-11.0 [facility] Absolute lymphocyte countOrd ered By: Jairon Medel on 05-24-2024 Lymphocytes Auto (Unsp spec) [#/Vol] 1.90 10*3/uL 0.83-4.51 [facility] Absolute neutrophil countOrd ered By: Jairon Medel on 05-24-2024 Neutrophils (Bld) [#/Vol] 3.1 10*3/uL 2.0-7.7 [facility] Anion gap in Serum or Plasma Ordered By: Jairon Medel on 05-24-2024 Anion gap [Moles/Vol] 11 mmol/L 5-15 [facility] Automated lymphocyte count a s percentage of total leukocytesOrdered By: Jairon Medel on 05-24-2024 Lymphocytes/100 WBC Auto (Unsp spec) 33.6 % 19-41 [facility] BUN/creatinine ratioOrdered By: Jairon Medel on 05-24-2024 Urea nitrogen/Creatinine [Mass ratio] 19.7 mg/mg 10-20 [facility] Basophil percentageOrdered B y: Jairon Medel on 05-24-2024 Basophils/100 WBC (Bld) 1.1 % High 0-1 [facility] Bilirubin, totalOrdered By: Jairon Medel on 05-24-2024 Bilirubin [Mass/Vol] 0.29 mg/dL 0.00-1.30 [facility] Carbon dioxide, total [Moles /volume] in Central venous bloodOrdered By: Jairon Medel on 05-24-2024 CO2 [Moles/Vol] 23.5 mmol/L 21.0-32.0 [facility] Chloride assayOrdered By: Pooja Medel on 05-24-2024 Chloride [Moles/Vol] 106 mmol/L 98-108 [facility] Eosinophil percentageOrdered By: Jairon Medel on 05-24-2024 Eosinophils/100 WBC (Bld) 2.1 % 0-5 [facility] Erythrocyte distribution wid th (RBC) [Ratio]Ordered By: Carrillomattoonmakenzie Medel on 05-24-2024 Erythrocyte distribution width (RBC) [Entitic vol] 41.3 fL 35.1-43.9 [facility] Erythrocyte distribution wid th ratioOrdered By: [facility] Medel on 05-24-2024 Erythrocyte distribution width (RBC) [Ratio] 13.2 % 11.6-14.6 [facility] Erythrocyte distribution wid th standard deviationOrdered By: [facility]aken[facility] Torosophia on 05-24-2024 Erythrocyte distribution width (RBC) [Ratio] 41.3 fl 35.1-43.9 [facility] GFR/1.73 sq M.predicted hua g non-blacks MDRD (S/P/Bld) [Vol rate/Area]Ordered By: Jairon Medel on 05-24-2024 Estimated GFR (MDRD) Non-Af Amer 52 Low >60 [facility] Comment on above: mL/min/1.73m2 CKD-EP I Creatinine Equation (2020) Glomerular filtration rate ( GFR) estimation/1.73 sq m using serum, plasma, or whole bOrdered By: Jairon Medel on 05-24-2024 GFR/1.73 sq M.predicted among non-blacks MDRD (S/P/Bld) [Vol rate/Area] 52 mL/min/{1.73_m2} Low >60 [facility] Comment on above: mL/min/1.73m2 CKD-EP I Creatinine Equation (2020) Hematocrit Auto (Bld) [Volum e fraction]Ordered By: Jairon Medel on 05-24-2024 Hematocrit (Bld) [Volume fraction] 33.2 % Low 37-47 [facility] Hemoglobin A1c percentageOrd ered By: Jairon Medel on 05-24-2024 HbA1c (Bld) [Mass fraction] 5.5 % <5.7 [facility] Comment on above: Normal < 5.7 % Predi abetic 5.7 - 6.4 % Diabetic >or= 6.5 % Please note range changes. Hemoglobin measurementOrdere d By: Jairon Medel on 05-24-2024 Hemoglobin (Bld) [Mass/Vol] 10.7 g/dL Low 12.0-15.0 [facility] Immature granulocytes/100 WB C Auto (Bld)Ordered By: Jairon Medel on 05-24-2024 Immature granulocytes/100 WBC (Bld) 0.200 % 0.0-0.9 [facility] Comment on above: IG% - Immature Granu locytes (promyelocytes, myelocytes and metamyelocytes) > 1% indicates that a LEFT SHIFT is Present. Laboratory - Chemistry and C hemistry - challengeOrdered By: Jairon Medel on 05-24-2024 AST [Catalytic activity/Vol] 21 U/L <32 [facility] Lymphocytes Auto (Unsp spec) [#/Vol]Ordered By: Jairon Medel on 05-24-2024 Lymphocytes (Bld) [#/Vol] 1.90 10*3/uL 0.83-4.51 [facility] Lymphocytes/100 WBC Auto (Un sp spec)Ordered By: Jairon Medel on 05-24-2024 Lymphocytes/100 WBC (Bld) 33.6 % 19-41 [facility] MCV (mean corpuscular volume ) determinationOrdered By: Jairon Medel on 05-24-2024 MCV (RBC) [Entitic vol] 86.2 fL 81-99 [facility] Mean corpuscular hemoglobin (MCH) determinationOrdered By: Jairon Medel on 05-24-2024 MCH (RBC) [Entitic mass] 27.8 pg 27.0-32.0 [facility] Mean corpuscular hemoglobin concentration (MCHC) determinationOrdered By: Jairon Medel on 05-24-2024 MCHC (RBC) [Mass/Vol] 32.2 g/dL 32-36 [facility] Mean platelet volume determi nationOrdered By: Jairon Medel on 05-24-2024 Platelet mean volume (Bld) [Entitic vol] 10.2 fL 6.2-12.0 [facility] Monocyte percentageOrdered B y: Jairon Medel on 05-24-2024 Monocytes/100 WBC (Bld) 8.1 % 0-10 [facility] Neutrophil percentageOrdered By: Jairon Cortezjenifersophia on 05-24-2024 Neutrophils/100 WBC (Bld) 54.9 % 47-70 [facility] Nucleated red blood cell per centageOrdered By: Poojasreekanthbraden Cortezjenifersophia on 05-24-2024 Nucleated RBC/100 WBC (Bld) [Ratio] 0 % 0-5 [facility] Platelet countOrdered By: Pooja margarette Cortezjenifersophia on 05-24-2024 Platelets (Bld) [#/Vol] 264 10*3/uL 150-450 [facility] Potassium (Unsp spec) [Mass/ Vol]Ordered By: Jairon Medel on 05-24-2024 Potassium [Moles/Vol] 3.9 mmol/L 3.3-5.1 [facility] Potassium measurement (mass/ volume)Ordered By: Jairon Medel on 05-24-2024 Potassium (Unsp spec) [Mass/Vol] 3.9 mmol/L 3.3-5.1 [facility] RBC Auto (Bld) [#/Vol]Ordere d By: Jairon Cortezdorcas on 05-24-2024 RBC (Bld) [#/Vol] 3.85 10*6/uL Low 4.2-5.4 [facility] Serum creatinine measurement (mass/volume)Ordered By: Jairon Medel on 05-24-2024 Creatinine [Mass/Vol] 1.05 mg/dL 0.70-1.20 [facility] Serum globulin measurementOr dered By: Jairon Medel on 05-24-2024 Globulin (S) [Mass/Vol] 2.6 g/dL 2.2-4.2 [facility] Serum glucose measurement (m ass/volume)Ordered By: Jairon Medel on 05-24-2024 Glucose [Mass/Vol] 95 mg/dL 70-99 [facility] Serum or plasma alanine crane otransferase (ALT) measurementOrdered By: Jarion Medel on 05-24-2024 ALT [Catalytic activity/Vol] 11 U/L <35 [facility] Serum or plasma albumin krissy urement (mass/volume)Ordered By: Jairon Medel on 05-24-2024 Albumin [Mass/Vol] 4.0 g/dL 3.4-4.8 [facility] Serum or plasma albumin/glob ulin mass ratioOrdered By: Jairon Medel on 05-24-2024 Albumin/Globulin [Mass ratio] 1.5 {ratio} 0.9-2.4 [facility] Serum or plasma alkaline luis sphatase measurementOrdered By: Jairon Medel on 05-24-2024 ALP [Catalytic activity/Vol] 67 U/L 35-104 [facility] Serum or plasma calcium krissy urement (mass/volume)Ordered By: Jairon Medel on 05-24-2024 Calcium [Mass/Vol] 9.9 mg/dL 7.6-11.0 [facility] Serum or plasma urea nitroge n measurement (mass/volume)Ordered By: Jairon Medel on 05-24-2024 Urea nitrogen [Mass/Vol] 21 mg/dL High 4-19 [facility] Sodium levelOrdered By: Carrillo Medel on 05-24-2024 Sodium [Moles/Vol] 141 mmol/L 133-145 [facility] Total proteinOrdered By: Masoud Medel on 05-24-2024 Protein [Mass/Vol] 6.6 g/dL 5.9-8.4 [facility] White blood cell (WBC) count Ordered By: Jairon Medel on 05-24-2024 WBC (Bld) [#/Vol] 5.7 10*3/uL 4.4-11.0 [facility] Anion gap in Serum or Plasma Ordered By: Jairon Medel on 05-15-2024 Anion gap [Moles/Vol] 10 mmol/L 5-15 [facility] BUN/creatinine ratioOrdered By: Jairon Medel 05-15-2024 Urea nitrogen/Creatinine [Mass ratio] 15.3 mg/mg 10-20 [facility] Carbon dioxide, total [Moles /volume] in Central venous bloodOrdered By: Jairon Medel on 05-15-2024 CO2 [Moles/Vol] 25.0 mmol/L 21.0-32.0 [facility] Chloride assayOrdered By: Pooja Medel on 05-15-2024 Chloride [Moles/Vol] 108 mmol/L 98-108 [facility] GFR/1.73 sq M.predicted hua g non-blacks MDRD (S/P/Bld) [Vol rate/Area]Ordered By: Jairon Medel on 05-15-2024 Estimated GFR (MDRD) Non-Af Amer 57 Low >60 [facility] Comment on above: mL/min/1.73m2 CKD-EP I Creatinine Equation (2020) Glomerular filtration rate ( GFR) estimation/1.73 sq m using serum, plasma, or whole bOrdered By: Jairon Medel on 05-15-2024 GFR/1.73 sq M.predicted among non-blacks MDRD (S/P/Bld) [Vol rate/Area] 57 mL/min/{1.73_m2} Low >60 [facility] Comment on above: mL/min/1.73m2 CKD-EP I Creatinine Equation (2020) Potassium (Unsp spec) [Mass/ Vol]Ordered By: Jairon Medel on 05-15-2024 Potassium [Moles/Vol] 3.8 mmol/L 3.3-5.1 [facility] Potassium measurement (mass/ volume)Ordered By: Jairon Medel on 05-15-2024 Potassium (Unsp spec) [Mass/Vol] 3.8 mmol/L 3.3-5.1 [facility] Serum creatinine measurement (mass/volume)Ordered By: Jairon Medel on 05-15-2024 Creatinine [Mass/Vol] 0.98 mg/dL 0.70-1.20 [facility] Serum glucose measurement (m ass/volume)Ordered By: Jairon Medel on 05-15-2024 Glucose [Mass/Vol] 87 mg/dL 70-99 [facility] Serum or plasma calcium krissy urement (mass/volume)Ordered By: Jairon Medel on 05-15-2024 Calcium [Mass/Vol] 9.8 mg/dL 7.6-11.0 [facility] Serum or plasma urea nitroge n measurement (mass/volume)Ordered By: Jairon Medel on 05-15-2024 Urea nitrogen [Mass/Vol] 15 mg/dL 4-19 [facility] Sodium levelOrdered By: Carrillo braden Gianfranco on 05-15-2024 Sodium [Moles/Vol] 143 mmol/L 133-145 [facility] Absolute lymphocyte countOrd ered By: Jairon Medel on 05-01-2024 Lymphocytes Auto (Unsp spec) [#/Vol] 1.90 10*3/uL 0.83-4.51 [facility] Absolute neutrophil countOrd ered By: Jairon Medel on 05-01-2024 Neutrophils (Bld) [#/Vol] 2.7 10*3/uL 2.0-7.7 [facility] Anion gap in Serum or Plasma Ordered By: Jairon Medel on 05-01-2024 Anion gap [Moles/Vol] 11 mmol/L 5-15 [facility] Automated lymphocyte count a s percentage of total leukocytesOrdered By: Jairon Medel on 05-01-2024 Lymphocytes/100 WBC Auto (Unsp spec) 35.5 % 19-41 [facility] BUN/creatinine ratioOrdered By: Jairon Medel on 05-01-2024 Urea nitrogen/Creatinine [Mass ratio] 17.8 mg/mg 10-20 [facility] Basophil percentageOrdered B y: Jairon Medel on 05-01-2024 Basophils/100 WBC (Bld) 1.5 % High 0-1 [facility] Carbon dioxide, total [Moles /volume] in Central venous bloodOrdered By: Jairon Medel on 05-01-2024 CO2 [Moles/Vol] 23.3 mmol/L 21.0-32.0 [facility] Chloride assayOrdered By: Pooja Medel on 05-01-2024 Chloride [Moles/Vol] 107 mmol/L 98-108 [facility] Eosinophil percentageOrdered By: Jairon Medel on 05-01-2024 Eosinophils/100 WBC (Bld) 2.2 % 0-5 [facility] Erythrocyte distribution wid th (RBC) [Ratio]Ordered By: sreekanthmattoonmakenzie Medel on 05-01-2024 Erythrocyte distribution width (RBC) [Entitic vol] 44.5 fL High 35.1-43.9 [facility] Erythrocyte distribution wid th ratioOrdered By: [facility] Medel on 05-01-2024 Erythrocyte distribution width (RBC) [Ratio] 13.0 % 11.6-14.6 [facility] Erythrocyte distribution wid th standard deviationOrdered By: [facility] Medel on 05-01-2024 Erythrocyte distribution width (RBC) [Ratio] 44.5 fl High 35.1-43.9 [facility] GFR/1.73 sq M.predicted hua g non-blacks MDRD (S/P/Bld) [Vol rate/Area]Ordered By: Jairon Medel on 05-01-2024 Estimated GFR (MDRD) Non-Af Amer 58 Low >60 [facility] Comment on above: mL/min/1.73m2 CKD-EP I Creatinine Equation (2020) Glomerular filtration rate ( GFR) estimation/1.73 sq m using serum, plasma, or whole bOrdered By: [facility] Medel 05-01-2024 GFR/1.73 sq M.predicted among non-blacks MDRD (S/P/Bld) [Vol rate/Area] 58 mL/min/{1.73_m2} Low >60 [facility] Comment on above: mL/min/1.73m2 CKD-EP I Creatinine Equation (2020) Hematocrit Auto (Bld) [Volum e fraction]Ordered By: Jairon Medel on 05-01-2024 Hematocrit (Bld) [Volume fraction] 37.3 % 37-47 [facility] Hemoglobin measurementOrdere d By: Jairon Medel on 05-01-2024 Hemoglobin (Bld) [Mass/Vol] 11.3 g/dL Low 12.0-15.0 [facility] Immature granulocytes/100 WB C Auto (Bld)Ordered By: Jairon Medel on 05-01-2024 Immature granulocytes/100 WBC (Bld) 1.100 % High 0.0-0.9 [facility] Comment on above: IG% - Immature Granu locytes (promyelocytes, myelocytes and metamyelocytes) > 1% indicates that a LEFT SHIFT is Present. Lymphocytes Auto (Unsp spec) [#/Vol]Ordered By: Jairon Medel on 05-01-2024 Lymphocytes (Bld) [#/Vol] 1.90 10*3/uL 0.83-4.51 [facility] Lymphocytes/100 WBC Auto (Un sp spec)Ordered By: Jairon Medel on 05-01-2024 Lymphocytes/100 WBC (Bld) 35.5 % 19-41 [facility] MCV (mean corpuscular volume ) determinationOrdered By: Jairon Medel on 05-01-2024 MCV (RBC) [Entitic vol] 93.5 fL 81-99 [facility] Mean corpuscular hemoglobin (MCH) determinationOrdered By: Jairon Medel on 05-01-2024 MCH (RBC) [Entitic mass] 28.3 pg 27.0-32.0 [facility] Mean corpuscular hemoglobin concentration (MCHC) determinationOrdered By: Jairon Medel on 05-01-2024 MCHC (RBC) [Mass/Vol] 30.3 g/dL Low 32-36 [facility] Mean platelet volume determi nationOrdered By: Jairon Medel on 05-01-2024 Platelet mean volume (Bld) [Entitic vol] 10.2 fL 6.2-12.0 [facility] Monocyte percentageOrdered B y: Jairon Medel on 05-01-2024 Monocytes/100 WBC (Bld) 9.0 % 0-10 [facility] Neutrophil percentageOrdered By: Jairon Medel on 05-01-2024 Neutrophils/100 WBC (Bld) 50.7 % 47-70 [facility] Nucleated red blood cell per centageOrdered By: Jairon Medel on 05-01-2024 Nucleated RBC/100 WBC (Bld) [Ratio] 0 % 0-5 [facility] Platelet countOrdered By: Pooja Medel on 05-01-2024 Platelets (Bld) [#/Vol] 235 10*3/uL 150-450 [facility] Potassium (Unsp spec) [Mass/ Vol]Ordered By: Jairon Medel on 05-01-2024 Potassium [Moles/Vol] 4.3 mmol/L 3.3-5.1 [facility] Potassium measurement (mass/ volume)Ordered By: Jairon Medel on 05-01-2024 Potassium (Unsp spec) [Mass/Vol] 4.3 mmol/L 3.3-5.1 [facility] RBC Auto (Bld) [#/Vol]Ordere d By: Jairon Medel on 05-01-2024 RBC (Bld) [#/Vol] 3.99 10*6/uL Low 4.2-5.4 [facility] Serum creatinine measurement (mass/volume)Ordered By: Jairon Medel on 05-01-2024 Creatinine [Mass/Vol] 0.96 mg/dL 0.70-1.20 [facility] Serum glucose measurement (m ass/volume)Ordered By: Jairon Medel on 05-01-2024 Glucose [Mass/Vol] 89 mg/dL 70-99 [facility] Serum or plasma calcium krissy urement (mass/volume)Ordered By: Jairon Medel on 05-01-2024 Calcium [Mass/Vol] 9.8 mg/dL 7.6-11.0 [facility] Serum or plasma urea nitroge n measurement (mass/volume)Ordered By: Jairon Medel on 05-01-2024 Urea nitrogen [Mass/Vol] 17 mg/dL 4-19 [facility] Sodium levelOrdered By: Carrillo malcolmrassophia Medel on 05-01-2024 Sodium [Moles/Vol] 141 mmol/L 133-145 [facility] White blood cell (WBC) count Ordered By: Jairon Medel on 05-01-2024 WBC (Bld) [#/Vol] 5.4 10*3/uL 4.4-11.0 [facility] Absolute lymphocyte countOrd ered By: Jairon De Leonsophia on 04-03-2024 Lymphocytes Auto (Unsp spec) [#/Vol] 1.70 10*3/uL 0.83-4.51 [facility] Absolute neutrophil countOrd ered By: Poojasreekanthmahadmakenzie Torojenifersophia on 04-03-2024 Neutrophils (Bld) [#/Vol] 3.0 10*3/uL 2.0-7.7 [facility] Automated lymphocyte count a s percentage of total leukocytesOrdered By: Jairon Torojenifersophia on 04-03-2024 Lymphocytes/100 WBC Auto (Unsp spec) 32.1 % 19-41 [facility] Basophil percentageOrdered B y: Jairon Torojenifersophia on 04-03-2024 Basophils/100 WBC (Bld) 1.3 % High 0-1 [facility] Blood urea nitrogen (BUN)/cr eatinine ratioOrdered By: Jairon Torojenifersophia on 04-03-2024 Urea nitrogen/Creatinine [Mass ratio] 21.1 mg/mg High 10-20 [facility] Carbon dioxide measurementOr dered By: Jairon Torojenifersophia on 04-03-2024 CO2 [Moles/Vol] 27.0 mmol/L 21.0-32.0 [facility] Chloride measurementOrdered By: Jairon Torojenifersophia on 04-03-2024 Chloride [Moles/Vol] 111 mmol/L High 98-107 [facility] Eosinophil percentageOrdered By: Carrillobraden Torojenifere on 04-03-2024 Eosinophils/100 WBC (Bld) 2.3 % 0-5 [facility] Erythrocyte distribution wid th (RBC) [Ratio]Ordered By: Jairon Torojenifere on 04-03-2024 Erythrocyte distribution width (RBC) [Entitic vol] 43.2 fL 35.1-43.9 [facility] Erythrocyte distribution wid th ratioOrdered By: Jairon De Leone on 04-03-2024 Erythrocyte distribution width (RBC) [Ratio] 13.2 % 11.6-14.6 [facility] Erythrocyte distribution wid th standard deviationOrdered By: Jairon Medel on 04-03-2024 Erythrocyte distribution width (RBC) [Ratio] 43.2 fl 35.1-43.9 [facility] Estimated glomerular filtrat ion rate (GFR) AmericanOrdered By: Jairon Medel on 04-03-2024 Estimated GFR (MDRD) Amer 72 mL/min >60 [facility] Comment on above: GFR Calc Glomerular filtration rate ( GFR) estimationOrdered By: Jairon Medel on 04-03-2024 Estimated GFR (MDRD) Non-Af Amer 59 mL/min Low >60 [facility] Comment on above: Non- GFR Calc GFR/1.73 sq M.predicted among non-blacks MDRD (S/P/Bld) [Vol rate/Area] 59 mL/min/{1.73_m2} Low >60 [facility] Comment on above: Non- GFR Calc Glucose measurementOrdered B y: Jairon Medel on 04-03-2024 Glucose [Mass/Vol] 93 mg/dL 74-106 [facility] Hematocrit Auto (Bld) [Volum e fraction]Ordered By: margarette Medel on 04-03-2024 Hematocrit (Bld) [Volume fraction] 31.6 % Low 37-47 [facility] Hemoglobin measurementOrdere d By: Jairon Medel on 04-03-2024 Hemoglobin (Bld) [Mass/Vol] 9.7 g/dL Low 12.0-15.0 [facility] Immature granulocytes/100 WB C Auto (Bld)Ordered By: margarette Medel on 04-03-2024 Immature granulocytes/100 WBC (Bld) 0.200 % 0.0-0.9 [facility] Comment on above: IG% - Immature Granu locytes (promyelocytes, myelocytes and metamyelocytes) > 1% indicates that a LEFT SHIFT is Present. Lymphocytes Auto (Unsp spec) [#/Vol]Ordered By: margarette Medel on 04-03-2024 Lymphocytes (Bld) [#/Vol] 1.70 10*3/uL 0.83-4.51 [facility] Lymphocytes/100 WBC Auto (Un sp spec)Ordered By: Jairon Medel on 04-03-2024 Lymphocytes/100 WBC (Bld) 32.1 % 19-41 [facility] MCV (mean corpuscular volume ) determinationOrdered By: Jairon Medel on 04-03-2024 MCV (RBC) [Entitic vol] 91.1 fL 81-99 [facility] Mean corpuscular hemoglobin (MCH) determinationOrdered By: Jairon Medel on 04-03-2024 MCH (RBC) [Entitic mass] 28.0 pg 27.0-32.0 [facility] Mean corpuscular hemoglobin concentration (MCHC) determinationOrdered By: Jairon Medel on 04-03-2024 MCHC (RBC) [Mass/Vol] 30.7 g/dL Low 32-36 [facility] Mean platelet volume determi nationOrdered By: Jairon Medel on 04-03-2024 Platelet mean volume (Bld) [Entitic vol] 9.9 fL 6.2-12.0 [facility] Monocyte percentageOrdered B y: Jairon Medel on 04-03-2024 Monocytes/100 WBC (Bld) 8.3 % 0-10 [facility] Neutrophil percentageOrdered By: Jairon Medel on 04-03-2024 Neutrophils/100 WBC (Bld) 55.8 % 47-70 [facility] Nucleated red blood cell per centageOrdered By: Jairon Medel on 04-03-2024 Nucleated RBC/100 WBC (Bld) [Ratio] 0 % 0-5 [facility] Platelet countOrdered By: Pooja Medel on 04-03-2024 Platelets (Bld) [#/Vol] 229 10*3/uL 150-450 [facility] Potassium measurementOrdered By: Jairon Medel on 04-03-2024 Potassium [Moles/Vol] 4.4 mmol/L 3.5-5.1 [facility] RBC Auto (Bld) [#/Vol]Ordere d By: Jairon Medel on 04-03-2024 RBC (Bld) [#/Vol] 3.47 10*6/uL Low 4.2-5.4 [facility] Serum anion gap measurementO rdered By: Poojasreekanthmahadmakenzie Torodorcas on 04-03-2024 Anion gap [Moles/Vol] 6 mmol/L 5-15 [facility] Serum or plasma calcium krissy urement (mass/volume)Ordered By: Jairon Medel on 04-03-2024 Calcium [Mass/Vol] 9.4 mg/dL 8.5-10.1 [facility] Serum or plasma creatinine m easurement (mass/volume)Ordered By: Jairon Torojenifersophia on 04-03-2024 Creatinine [Mass/Vol] 0.95 mg/dL 0.55-1.02 [facility] Comment on above: The validity of the calculated GFR & GFRAA in patients over 70 years has not been determined. Clinical correlation is essential. Serum or plasma urea nitroge n measurement (mass/volume)Ordered By: Jairon Medel on 04-03-2024 Urea nitrogen [Mass/Vol] 20 mg/dL High 7-18 [facility] Sodium levelOrdered By: Poojasreekanth braden Cortezjenifersophia on 04-03-2024 Sodium [Moles/Vol] 144 mmol/L 136-145 [facility] White blood cell (WBC) count Ordered By: Jairon Torojenifersophia on 04-03-2024 WBC (Bld) [#/Vol] 5.3 10*3/uL 4.4-11.0 [facility] Absolute lymphocyte countOrd ered By: Jairon Medel on 03-27-2024 Lymphocytes Auto (Unsp spec) [#/Vol] 2.06 10*3/uL 0.83-4.51 [facility] Absolute neutrophil countOrd ered By: Jairon Torojenifersophia on 03-27-2024 Neutrophils (Bld) [#/Vol] 3.3 10*3/uL 2.0-7.7 [facility] Automated lymphocyte count a s percentage of total leukocytesOrdered By: Jairon Medel on 03-27-2024 Lymphocytes/100 WBC Auto (Unsp spec) 33.5 % 19-41 [facility] Basophil percentageOrdered B y: Jairon Medel on 03-27-2024 Basophils/100 WBC (Bld) 0.8 % 0-1 [facility] Blood urea nitrogen (BUN)/cr eatinine ratioOrdered By: Jairon Medel on 03-27-2024 Urea nitrogen/Creatinine [Mass ratio] 19.3 mg/mg 10-20 [facility] Carbon dioxide measurementOr dered By: Jairon Medel on 03-27-2024 CO2 [Moles/Vol] 27.0 mmol/L 21.0-32.0 [facility] Chloride measurementOrdered By: sreekanthmattoonmakenzie Medel on 03-27-2024 Chloride [Moles/Vol] 110 mmol/L High 98-107 [facility] Eosinophil percentageOrdered By: Jairon Medel on 03-27-2024 Eosinophils/100 WBC (Bld) 2.3 % 0-5 [facility] Erythrocyte distribution wid th (RBC) [Ratio]Ordered By: Jairon Medel on 03-27-2024 Erythrocyte distribution width (RBC) [Entitic vol] 43.7 fL 35.1-43.9 [facility] Erythrocyte distribution wid th ratioOrdered By: Jairon Medel on 03-27-2024 Erythrocyte distribution width (RBC) [Ratio] 13.2 % 11.6-14.6 [facility] Erythrocyte distribution wid th standard deviationOrdered By: sreekanthmattoonmakenzie Medel on 03-27-2024 Erythrocyte distribution width (RBC) [Ratio] 43.7 fl 35.1-43.9 [facility] Estimated glomerular filtrat ion rate (GFR) AmericanOrdered By: Jairon Medel on 03-27-2024 Estimated GFR (MDRD) Amer 69 mL/min >60 [facility] Comment on above: GFR Calc Glomerular filtration rate ( GFR) estimationOrdered By: Jairon Medel on 03-27-2024 Estimated GFR (MDRD) Non-Af Amer 57 mL/min Low >60 [facility] Comment on above: Non- GFR Calc GFR/1.73 sq M.predicted among non-blacks MDRD (S/P/Bld) [Vol rate/Area] 57 mL/min/{1.73_m2} Low >60 [facility] Comment on above: Non- GFR Calc Glucose measurementOrdered B y: Jairon Cortezjenifersophia on 03-27-2024 Glucose [Mass/Vol] 89 mg/dL 74-106 [facility] Hematocrit Auto (Bld) [Volum e fraction]Ordered By: Jairon Medel on 03-27-2024 Hematocrit (Bld) [Volume fraction] 30.9 % Low 37-47 [facility] Hemoglobin measurementOrdere d By: Jairon Medel on 03-27-2024 Hemoglobin (Bld) [Mass/Vol] 9.6 g/dL Low 12.0-15.0 [facility] Immature granulocytes/100 WB C Auto (Bld)Ordered By: Jairon Medel on 03-27-2024 Immature granulocytes/100 WBC (Bld) 0.500 % 0.0-0.9 [facility] Comment on above: IG% - Immature Granu locytes (promyelocytes, myelocytes and metamyelocytes) > 1% indicates that a LEFT SHIFT is Present. Lymphocytes Auto (Unsp spec) [#/Vol]Ordered By: Jairon Medel on 03-27-2024 Lymphocytes (Bld) [#/Vol] 2.06 10*3/uL 0.83-4.51 [facility] Lymphocytes/100 WBC Auto (Un sp spec)Ordered By: Jairon Medel on 03-27-2024 Lymphocytes/100 WBC (Bld) 33.5 % 19-41 [facility] MCV (mean corpuscular volume ) determinationOrdered By: Jairon Medel on 03-27-2024 MCV (RBC) [Entitic vol] 90.1 fL 81-99 [facility] Mean corpuscular hemoglobin (MCH) determinationOrdered By: Jairon Medel on 03-27-2024 MCH (RBC) [Entitic mass] 28.0 pg 27.0-32.0 [facility] Mean corpuscular hemoglobin concentration (MCHC) determinationOrdered By: Jairon Medel on 03-27-2024 MCHC (RBC) [Mass/Vol] 31.1 g/dL Low 32-36 [facility] Mean platelet volume determi nationOrdered By: Jairon Medel on 03-27-2024 Platelet mean volume (Bld) [Entitic vol] 10.2 fL 6.2-12.0 [facility] Monocyte percentageOrdered B y: Jairon Medel on 03-27-2024 Monocytes/100 WBC (Bld) 9.6 % 0-10 [facility] Neutrophil percentageOrdered By: Jairon Medel on 03-27-2024 Neutrophils/100 WBC (Bld) 53.3 % 47-70 [facility] Nucleated red blood cell per centageOrdered By: Jairon Medel on 03-27-2024 Nucleated RBC/100 WBC (Bld) [Ratio] 0 % 0-5 [facility] Platelet countOrdered By: Pooja Medel on 03-27-2024 Platelets (Bld) [#/Vol] 235 10*3/uL 150-450 [facility] Potassium measurementOrdered By: Jairon Medel on 03-27-2024 Potassium [Moles/Vol] 4.0 mmol/L 3.5-5.1 [facility] RBC Auto (Bld) [#/Vol]Ordere d By: Jairon Medel on 03-27-2024 RBC (Bld) [#/Vol] 3.43 10*6/uL Low 4.2-5.4 [facility] Serum anion gap measurementO rdered By: Jairon Medel on 03-27-2024 Anion gap [Moles/Vol] 6 mmol/L 5-15 [facility] Serum or plasma calcium krissy urement (mass/volume)Ordered By: Jairon Medel on 03-27-2024 Calcium [Mass/Vol] 9.3 mg/dL 8.5-10.1 [facility] Serum or plasma creatinine m easurement (mass/volume)Ordered By: Jairon Medel on 03-27-2024 Creatinine [Mass/Vol] 0.98 mg/dL 0.55-1.02 [facility] Comment on above: The validity of the calculated GFR & GFRAA in patients over 70 years has not been determined. Clinical correlation is essential. Serum or plasma urea nitroge n measurement (mass/volume)Ordered By: Jairon Medel on 03-27-2024 Urea nitrogen [Mass/Vol] 19 mg/dL High 7-18 [facility] Sodium levelOrdered By: Poojasreekanth braden Cortezjenifersophia on 03-27-2024 Sodium [Moles/Vol] 143 mmol/L 136-145 [facility] White blood cell (WBC) count Ordered By: Jairon Medel on 03-27-2024 WBC (Bld) [#/Vol] 6.2 10*3/uL 4.4-11.0 [facility] 66-BD-Ccbrybe DOrdered By: Sophia almamakenzie Medel on 02-28-2024 Vitamin D 25-Hydroxy 60.8 ng/mL [facility] Comment on above: Vitamin D 25(OH) Sta tus Range Deficiency <20 ng/mL (50nmol/L) Insufficiency 20 - 30 ng/mL (50 - 75 nmol/L) Sufficiency 30 - 100 ng/mL (75 - 250 nmol/L) Toxicity >100 ng/mL (>250 nmol/L) Absolute lymphocyte countOrd ered By: Carrillomahadmakenzie Medel on 02-28-2024 Lymphocytes Auto (Unsp spec) [#/Vol] 1.75 10*3/uL 0.83-4.51 [facility] Absolute neutrophil countOrd ered By: Jairon Medel on 02-28-2024 Neutrophils (Bld) [#/Vol] 3.9 10*3/uL 2.0-7.7 [facility] Albumin to globulin ratioOrd ered By: Goldiemakenzie Torojenifersophia on 02-28-2024 Albumin/Globulin [Mass ratio] 1.0 {ratio} 0.9-2.4 [facility] Automated lymphocyte count a s percentage of total leukocytesOrdered By: Jairon Medel on 02-28-2024 Lymphocytes/100 WBC Auto (Unsp spec) 27.3 % 19-41 [facility] Basophil percentageOrdered B y: Jairon Medel on 02-28-2024 Basophils/100 WBC (Bld) 0.8 % 0-1 [facility] Bilirubin, totalOrdered By: Jairon Medel on 02-28-2024 Bilirubin [Mass/Vol] 0.20 mg/dL 0.20-1.00 [facility] Comment on above: For patients on eltr ombopag therapy, use of Dimension Boley TBIL is not recommended. Blood urea nitrogen (BUN)/cr eatinine ratioOrdered By: Jairon Medel on 02-28-2024 Urea nitrogen/Creatinine [Mass ratio] 24.1 mg/mg High 10-20 [facility] Carbon dioxide measurementOr dered By: Jairon Medel on 02-28-2024 CO2 [Moles/Vol] 27.0 mmol/L 21.0-32.0 [facility] Chloride measurementOrdered By: Jairon Medel on 02-28-2024 Chloride [Moles/Vol] 111 mmol/L High 98-107 [facility] Eosinophil percentageOrdered By: Jairon Medel on 02-28-2024 Eosinophils/100 WBC (Bld) 2.3 % 0-5 [facility] Erythrocyte distribution wid th (RBC) [Ratio]Ordered By: Jairon Medel on 02-28-2024 Erythrocyte distribution width (RBC) [Entitic vol] 43.7 fL 35.1-43.9 [facility] Erythrocyte distribution wid th ratioOrdered By: Jairon Medel on 02-28-2024 Erythrocyte distribution width (RBC) [Ratio] 13.4 % 11.6-14.6 [facility] Erythrocyte distribution wid th standard deviationOrdered By: Jairon Medel on 02-28-2024 Erythrocyte distribution width (RBC) [Ratio] 43.7 fl 35.1-43.9 [facility] Estimated glomerular filtrat ion rate (GFR) AmericanOrdered By: Jairon Medel on 02-28-2024 Estimated GFR (MDRD) Amer 72 mL/min >60 [facility] Comment on above: GFR Calc Glomerular filtration rate ( GFR) estimationOrdered By: Jairon Medel on 02-28-2024 Estimated GFR (MDRD) Non-Af Amer 59 mL/min Low >60 [facility] Comment on above: Non- GFR Calc GFR/1.73 sq M.predicted among non-blacks MDRD (S/P/Bld) [Vol rate/Area] 59 mL/min/{1.73_m2} Low >60 [facility] Comment on above: Non- GFR Calc Glucose measurementOrdered B y: Jairon Medel on 02-28-2024 Glucose [Mass/Vol] 93 mg/dL 74-106 [facility] Hematocrit Auto (Bld) [Volum e fraction]Ordered By: Jairon Medel on 02-28-2024 Hematocrit (Bld) [Volume fraction] 32.1 % Low 37-47 [facility] Hemoglobin measurementOrdere d By: Jairon Medel on 02-28-2024 Hemoglobin (Bld) [Mass/Vol] 9.9 g/dL Low 12.0-15.0 [facility] High density lipoprotein (HD L) measurementOrdered By: Jairon Medel on 02-28-2024 Cholesterol in HDL [Mass/Vol] 58 mg/dL >40 [facility] Comment on above: The drugs N-Acetylcy steine and Metamizole may falsely depress this assay. Reference Range HDL <40 mg/dL Low HDL Cholesterol HDL >or= 60 mg/dL High HDL Cholesterol Immature granulocytes/100 WB C Auto (Bld)Ordered By: Jairon Medel on 02-28-2024 Immature granulocytes/100 WBC (Bld) 0.300 % 0.0-0.9 [facility] Comment on above: IG% - Immature Granu locytes (promyelocytes, myelocytes and metamyelocytes) > 1% indicates that a LEFT SHIFT is Present. Laboratory - Chemistry and C hemistry - challengeOrdered By: Jairon Medel on 02-28-2024 AST [Catalytic activity/Vol] 15 U/L 15-37 [facility] Low density lipoprotein (LDL ) cholesterol measurementOrdered By: Jairon Medel on 02-28-2024 Cholesterol in LDL [Mass/Vol] 67 mg/dL 0-130 [facility] Lymphocytes Auto (Unsp spec) [#/Vol]Ordered By: Jairon Medel on 02-28-2024 Lymphocytes (Bld) [#/Vol] 1.75 10*3/uL 0.83-4.51 [facility] Lymphocytes/100 WBC Auto (Un sp spec)Ordered By: Jairon Medel on 02-28-2024 Lymphocytes/100 WBC (Bld) 27.3 % 19-41 [facility] MCV (mean corpuscular volume ) determinationOrdered By: Jairon Medel on 02-28-2024 MCV (RBC) [Entitic vol] 89.4 fL 81-99 [facility] Mean corpuscular hemoglobin (MCH) determinationOrdered By: Jairon Medel on 02-28-2024 MCH (RBC) [Entitic mass] 27.6 pg 27.0-32.0 [facility] Mean corpuscular hemoglobin concentration (MCHC) determinationOrdered By: Jairon Medel on 02-28-2024 MCHC (RBC) [Mass/Vol] 30.8 g/dL Low 32-36 [facility] Mean platelet volume determi nationOrdered By: Jairon Medel on 02-28-2024 Platelet mean volume (Bld) [Entitic vol] 9.6 fL 6.2-12.0 [facility] Monocyte percentageOrdered B y: Jairon Medel on 02-28-2024 Monocytes/100 WBC (Bld) 8.7 % 0-10 [facility] Neutrophil percentageOrdered By: Jairon Medel on 02-28-2024 Neutrophils/100 WBC (Bld) 60.6 % 47-70 [facility] Nucleated red blood cell per centageOrdered By: Jairon Medel on 02-28-2024 Nucleated RBC/100 WBC (Bld) [Ratio] 0 % 0-5 [facility] Platelet countOrdered By: Pooja Medel on 02-28-2024 Platelets (Bld) [#/Vol] 261 10*3/uL 150-450 [facility] Potassium measurementOrdered By: Jairon Medel on 02-28-2024 Potassium [Moles/Vol] 4.1 mmol/L 3.5-5.1 [facility] RBC Auto (Bld) [#/Vol]Ordere d By: Jairon Medel on 02-28-2024 RBC (Bld) [#/Vol] 3.59 10*6/uL Low 4.2-5.4 [facility] Serum anion gap measurementO rdered By: Jairon Medel on 02-28-2024 Anion gap [Moles/Vol] 4 mmol/L Low 5-15 [facility] Serum globulin measurementOr dered By: Jairon Medel on 02-28-2024 Globulin (S) [Mass/Vol] 2.9 g/dL 2.2-4.2 [facility] Serum or plasma alanine crane otransferase (ALT) measurementOrdered By: Jairon Medel on 02-28-2024 ALT [Catalytic activity/Vol] 17 U/L 13-56 [facility] Serum or plasma albumin krissy urement (mass/volume)Ordered By: Jairon Medel on 02-28-2024 Albumin [Mass/Vol] 2.8 g/dL Low 3.2-5.0 [facility] Serum or plasma alkaline luis sphatase measurementOrdered By: Jairon Medel on 02-28-2024 ALP [Catalytic activity/Vol] 63 U/L 45-117 [facility] Serum or plasma calcium krissy urement (mass/volume)Ordered By: Jairon Medel on 02-28-2024 Calcium [Mass/Vol] 9.6 mg/dL 8.5-10.1 [facility] Serum or plasma cholesterol measurement (mass/volume)Ordered By: Jairon Medel on 02-28-2024 Cholesterol [Mass/Vol] 134 mg/dL <200 [facility] Comment on above: <200 mg/dL Desirable 200-240 mg/dL Borderline >240 mg/dL High Risk Serum or plasma creatinine m easurement (mass/volume)Ordered By: Jairon Medel on 02-28-2024 Creatinine [Mass/Vol] 0.95 mg/dL 0.55-1.02 [facility] Comment on above: The validity of the calculated GFR & GFRAA in patients over 70 years has not been determined. Clinical correlation is essential. Serum or plasma urea nitroge n measurement (mass/volume)Ordered By: Jairon Cortezdorcas on 02-28-2024 Urea nitrogen [Mass/Vol] 23 mg/dL High 7-18 [facility] Sodium levelOrdered By: Carrillo feliciano Cortezdorcas on 02-28-2024 Sodium [Moles/Vol] 143 mmol/L 136-145 [facility] Total proteinOrdered By: Masoud Medel on 02-28-2024 Protein [Mass/Vol] 5.7 g/dL Low 6.4-8.2 [facility] Triglycerides measurementOrd ered By: Jairon Cortezdorcas on 02-28-2024 Triglyceride [Mass/Vol] 43 mg/dL <199 [facility] Comment on above: The drugs N-Acetylcy steine and Metamizole may falsely depress this assay.Serum Triglycerides Reference Interval Normal <150 mg/dL Borderline high 150 - 199 mg/dL High 200 - 499 mg/dL Very High > or = 500 mg/dL Valproate levelOrdered By: Sophia claudia Cortezdorcas on 02-28-2024 Valproic Acid (Depakene) Level 26 ug/mL Low 50-100 [facility] Very low density lipoprotein (VLDL) cholesterol measurementOrdered By: Jairon Cortezdorcas on 02-28-2024 Very low density lipoprotein (VLDL) cholesterol measurement 9 mg/dL 5-40 [facility] VLDL Cholesterol 9 mg/dL 5-40 [facility] White blood cell (WBC) count Ordered By: Goldiemakenzie Torojenifersophia on 02-28-2024 WBC (Bld) [#/Vol] 6.4 10*3/uL 4.4-11.0 [facility] .Auto Diffon 02-10-2024 Basophil, Absolute 0.1 10 3/mcL Normal 0.0-0.2 [facility] Comment on above: Performed By: #### B MP, MG, ANEU, ADIFF, CBC, GFR ####[facility] [place], [place] [address] Basophils/100 WBC (Bld) 1.1 % Normal 0.0-2.5 [facility] Comment on above: Performed By: #### B MP, MG, ANEU, ADIFF, CBC, GFR ####[address] [place], [place] [address] Eosinophil, Absolute 0.1 10 3/mcL Normal 0.0-0.7 [facility] Comment on above: Performed By: #### B MP, MG, ANEU, ADIFF, CBC, GFR ####[address] [place], [place] [address] Eosinophils/100 WBC (Bld) 1.8 % Normal 0.0-7.0 [facility] Comment on above: Performed By: #### B MP, MG, ANEU, ADIFF, CBC, GFR ####[address] [place], [place] [address] Lymphocyte, Absolute 1.4 10 3/mcL Normal 0.9-4.3 [facility] Comment on above: Performed By: #### B MP, MG, ANEU, ADIFF, CBC, GFR ####[address] [address] Lymphocytes/100 WBC (Bld) 25.4 % Normal 20.0-40.0 [facility] Comment on above: Performed By: #### B MP, MG, ANEU, ADIFF, CBC, GFR ####[address] [address] Monocyte, Absolute 0.4 10 3/mcL Normal 0.1-1.4 [facility] Comment on above: Performed By: #### B MP, MG, ANEU, ADIFF, CBC, GFR ####[address] [address] Monocytes/100 WBC (Bld) 7.4 % Normal 2.0-13.0 [facility] Comment on above: Performed By: #### B MP, MG, ANEU, ADIFF, CBC, GFR ####[address] [address] Neutrophils/100 WBC (Bld) 64.3 % Normal 50.0-75.0 [facility] Comment on above: Performed By: #### B MP, MG, ANEU, ADIFF, CBC, GFR ####[address] [place], [place] [address] .GFRon 02-10-2024 GFR 73 ml/min/1.73sqm Normal [facility] Comment on above: Result Comment: GFR Population mean for , Non- Americans Ages 20-29 = 116 mL/min/1.73 sq.m. Ages 30-39 = 107 mL/min/1.73 sq.m. Ages 40-49 = 99 mL/min/1.73 sq.m. Ages 50-59 = 93 mL/min/1.73 sq.m. Ages 60-69 = 85 mL/min/1.73 sq.m. Ages 70+ = 75 mL/min/1.73 sq.m. Chronic Kidney Disease: Less than 60 mL/min/1.73 square meters End Stage Renal Disease: Less than 15 mL/min/1.73 square meters Performed By: #### B MP, MG, ANEU, ADIFF, CBC, GFR ####[address] [place], [place] [address] GFR Non- 60 ml/min/1.73sqm Normal [facility] Comment on above: Result Comment: GFR Population mean for , Non- Americans Ages 20-29 = 116 mL/min/1.73 sq.m. Ages 30-39 = 107 mL/min/1.73 sq.m. Ages 40-49 = 99 mL/min/1.73 sq.m. Ages 50-59 = 93 mL/min/1.73 sq.m. Ages 60-69 = 85 mL/min/1.73 sq.m. Ages 70+ = 75 mL/min/1.73 sq.m. Chronic Kidney Disease: Less than 60 mL/min/1.73 square meters End Stage Renal Disease: Less than 15 mL/min/1.73 square meters Performed By: #### B MP, MG, ANEU, ADIFF, CBC, GFR ####[address] [place], [place] [address] .NEUABSon 02-10-2024 Neutrophil, Absolute 3.7 10 3/mcL Normal 2.3-8.1 [facility] Comment on above: Performed By: #### B MP, MG, ANEU, ADIFF, CBC, GFR ####[address] [address] BMPon 02-10-2024 BUN/Creatinine Ratio 25 ratio Normal 7-27 [facility] Comment on above: Performed By: #### B MP, MG, ANEU, ADIFF, CBC, GFR ####[address] [address] Calcium [Mass/Vol] 10.0 mg/dL Normal 8.4-10.2 [facility] Comment on above: Performed By: #### B MP, MG, ANEU, ADIFF, CBC, GFR ####[address] [address] Chloride [Moles/Vol] 107 mmol/L Normal 98-107 [facility] Comment on above: Performed By: #### B MP, MG, ANEU, ADIFF, CBC, GFR ####[address] [address] CO2 [Moles/Vol] 30 mmol/L Normal 23-31 [facility] Comment on above: Performed By: #### B MP, MG, ANEU, ADIFF, CBC, GFR ####[address] [address] Creatinine [Mass/Vol] 0.89 mg/dL Normal 0.55-1.02 [facility] Comment on above: Result Comment: Test ing performed on Siemens Dimension EXL analyzer using a modified kinetic Dora technique. Performed By: #### B MP, MG, ANEU, ADIFF, CBC, GFR ####[address] [address] Electrolyte Balance 8.0 mEq/L Normal 4.0-15.0 [facility] Comment on above: Performed By: #### B MP, MG, ANEU, ADIFF, CBC, GFR ####[address] [address] Glucose [Mass/Vol] 111 mg/dL High 83-110 [facility] Comment on above: Performed By: #### B MP, MG, ANEU, ADIFF, CBC, GFR ####[address] [place], [place] [address] Potassium [Moles/Vol] 4.0 mmol/L Normal 3.5-5.1 [facility] Comment on above: Performed By: #### B MP, MG, ANEU, ADIFF, CBC, GFR ####[address] [address] Sodium [Moles/Vol] 145 mmol/L Normal 136-145 [facility] Comment on above: Performed By: #### B MP, MG, ANEU, ADIFF, CBC, GFR ####[address] [address] Urea nitrogen [Mass/Vol] 22 mg/dL High 7-18 [facility] Comment on above: Performed By: #### B MP, MG, ANEU, ADIFF, CBC, GFR ####[address] [address] CBCon 02-10-2024 Erythrocyte distribution width (RBC) [Ratio] 14.1 % Normal 11.5-15.5 [facility] Comment on above: Performed By: #### B MP, MG, ANEU, ADIFF, CBC, GFR ####[place] [address] Hematocrit (Bld) [Volume fraction] 33.2 % Low 34.0-46.0 [facility] Comment on above: Performed By: #### B MP, MG, ANEU, ADIFF, CBC, GFR ####[place] [address] Hgb 11.3 G/dL Low 12.0-16.0 [facility] Comment on above: Performed By: #### B MP, MG, ANEU, ADIFF, CBC, GFR ####[address] [address] MCH (RBC) [Entitic mass] 28.8 pg Normal 27.0-33.0 [facility] Comment on above: Performed By: #### B MP, MG, ANEU, ADIFF, CBC, GFR ####[address] [place], [place] [address] MCHC 34.1 G/dL Normal 32.0-36.0 [facility] Comment on above: Performed By: #### B MP, MG, ANEU, ADIFF, CBC, GFR ####[address] [place], [place] [address] MCV (RBC) [Entitic vol] 84.5 fL Normal 80.0-99.0 [facility] Comment on above: Performed By: #### B MP, MG, ANEU, ADIFF, CBC, GFR ####[address] [place], [place] [address] Platelet 272 10 3/mcL Normal 150-450 [facility] Comment on above: Performed By: #### B MP, MG, ANEU, ADIFF, CBC, GFR ####[address] [place], [place] [address] Platelet mean volume (Bld) [Entitic vol] 7.7 fL Normal 6.6-10.5 [facility] Comment on above: Performed By: #### B MP, MG, ANEU, ADIFF, CBC, GFR ####[address] [place], [place] [address] RBC 3.93 10 6/mcL Low 4.10-5.30 [facility] Comment on above: Performed By: #### B MP, MG, ANEU, ADIFF, CBC, GFR ####[address] [place], [place] [address] WBC 5.7 10 3/mcL Normal 4.5-10.8 [facility] Comment on above: Performed By: #### B MP, MG, ANEU, ADIFF, CBC, GFR ####[address] [place], [place] [address] LABORATORYOrdered By: SYSTEM SYSTEM on 02-10-2024 Basophils (Bld) [#/Vol] 0.1 103/mcL Normal 0.0 - 0.2 10^3/mcL AO Workflow SS Basophils/100 WBC (Bld) 1.1 % Normal 0.0 - 2.5 % AO Workflow SS Calcium [Mass/Vol] 10.0 mg/dL Normal 8.4 - 10. 2 mg/dL AO ADM SS Chloride [Moles/Vol] 107 mmol/L Normal 98 - 10 7 mmol/L AO ADM SS CO2 [Moles/Vol] 30 mmol/L Normal 23 - 31 mmol/L AO ADM SS Creatinine [Mass/Vol] 0.89 mg/dL Normal 0.55 - 1.02 mg/dL AO ADM SS Comment on above: Interpretive Data: T esting performed on Siemens Dimension EXL analyzer using a modified kinetic Dora technique. Electrolyte Balance 8.0 mEq/L Normal 4.0 - 15 .0 mEq/L AO ADM SS Eosinophil, Absolute 0.1 103/mcL Normal 0.0 - 0 .7 10^3/mcL AO Workflow SS Eosinophils/100 WBC (Bld) 1.8 % Normal 0.0 - 7.0 % AO Workflow SS Erythrocyte distribution width (RBC) [Ratio] 14.1 % Normal 11.5 - 15.5 % AO Workflow SS GFR/1.73 sq M.predicted among blacks MDRD (S/P/Bld) [Vol rate/Area] 73 ml/min/1.73sqm Invalid Interpretation Code AO Chemistry S Comment on above: Interpretive Data: GFR Population mean for , Non- Americans Ages 20-29 = 116 mL/min/1.73 sq.m. Ages 30-39 = 107 mL/min/1.73 sq.m. Ages 40-49 = 99 mL/min/1.73 sq.m. Ages 50-59 = 93 mL/min/1.73 sq.m. Ages 60-69 = 85 mL/min/1.73 sq.m. Ages 70+ = 75 mL/min/1.73 sq.m. Chronic Kidney Disease: Less than 60 mL/min/1.73 square meters End Stage Renal Disease: Less than 15 mL/min/1.73 square meters GFR/1.73 sq M.predicted among non-blacks MDRD (S/P/Bld) [Vol rate/Area] 60 ml/min/1.73sqm Invalid Interpretation Code AO Chemistry S Comment on above: Interpretive Data: GFR Population mean for , Non- Americans Ages 20-29 = 116 mL/min/1.73 sq.m. Ages 30-39 = 107 mL/min/1.73 sq.m. Ages 40-49 = 99 mL/min/1.73 sq.m. Ages 50-59 = 93 mL/min/1.73 sq.m. Ages 60-69 = 85 mL/min/1.73 sq.m. Ages 70+ = 75 mL/min/1.73 sq.m. Chronic Kidney Disease: Less than 60 mL/min/1.73 square meters End Stage Renal Disease: Less than 15 mL/min/1.73 square meters Glucose [Mass/Vol] 111 mg/dL High 83 - 110 mg/dL AO ADM SS Hematocrit (Bld) [Volume fraction] 33.2 % Low 34.0 - 46.0 % AO Workflow SS Hemoglobin (Bld) [Mass/Vol] 11.3 G/dL Low 12.0 - 16.0 G/dL AO Workflow SS Lymphocytes (Bld) [#/Vol] 1.4 103/mcL Normal 0.9 - 4.3 10^3/mcL AO Workflow SS Lymphocytes/100 WBC (Bld) 25.4 % Normal 20.0 - 40.0 % AO Workflow SS Magnesium [Mass/Vol] 1.7 mg/dL Low 1.8 - 2 .4 mg/dL AO ADM SS MCH (RBC) [Entitic mass] 28.8 pg Normal 27.0 - 33.0 pg AO Workflow SS MCHC 34.1 G/dL Normal 32.0 - 36.0 G/dL AO Workflow SS MCV (RBC) [Entitic vol] 84.5 fL Normal 80.0 - 99.0 fL AO Workflow SS Monocytes (Bld) [#/Vol] 0.4 103/mcL Normal 0.1 - 1.4 10^3/mcL AO Workflow SS Monocytes/100 WBC (Bld) 7.4 % Normal 2.0 - 13.0 % AO Workflow SS Neutrophils (Bld) [#/Vol] 3.7 103/mcL Normal 2.3 - 8.1 10^3/mcL AO Workflow SS Neutrophils/100 WBC (Bld) 64.3 % Normal 50.0 - 75.0 % AO Workflow SS Platelet mean volume (Bld) [Entitic vol] 7.7 fL Normal 6.6 - 10.5 fL AO Workflow SS Platelets (Bld) [#/Vol] 272 103/mcL Normal 150 - 450 10^3/mcL AO Workflow SS Potassium [Moles/Vol] 4.0 mmol/L Normal 3.5 - 5.1 mmol/L AO ADM SS RBC (Bld) [#/Vol] 3.93 106/mcL Low 4.10 - 5.3 0 10^6/mcL AO Workflow SS Sodium [Moles/Vol] 145 mmol/L Normal 136 - 145 mmol/L AO ADM SS Urea nitrogen [Mass/Vol] 22 mg/dL High 7 - 18 mg/dL AO ADM SS Urea nitrogen/Creatinine [Mass ratio] 25 ratio Normal 7 - 27 ratio AO ADM SS WBC (Bld) [#/Vol] 5.7 103/mcL Normal 4.5 - 10.8 10^3/mcL AO Workflow SS MGon 02-10-2024 Magnesium [Mass/Vol] 1.7 mg/dL Low 1.8-2.4 [facility] Comment on above: Performed By: #### B MP, MG, ANEU, ADIFF, CBC, GFR ####[address] [place], [place] [address] .Auto Diffon 02-09-2024 Basophil, Absolute 0.1 10 3/mcL Normal 0.0-0.2 [facility] Comment on above: Performed By: #### B JEISON, MDW, GFR, ANEU, TROPHS, PBNP, CBC, ADIFF ####[address] [place], [place] [address] Basophils/100 WBC (Bld) 1.1 % Normal 0.0-2.5 [facility] Comment on above: Performed By: #### B JEISON, MDW, GFR, ANEU, TROPHS, PBNP, CBC, ADIFF ####[address] [place], [place] [address] Eosinophil, Absolute 0.1 10 3/mcL Normal 0.0-0.7 [facility] Comment on above: Performed By: #### B MP, MDW, GFR, ANEU, TROPHS, PBNP, CBC, ADIFF ####[place] [address] [place], [place] [address] Eosinophils/100 WBC (Bld) 1.6 % Normal 0.0-7.0 [facility] Comment on above: Performed By: #### B JEISON, NAFISA, GFR, ANEU, TROPHS, PBNP, CBC, ADIFF ####[place] [address] [place], [place] [address] Lymphocyte, Absolute 2.2 10 3/mcL Normal 0.9-4.3 [facility] Comment on above: Performed By: #### B JEISON, NAFISA, GFR, ANEU, TROPHS, PBNP, CBC, ADIFF ####[address] [place], [place] [address] Lymphocytes/100 WBC (Bld) 29.4 % Normal 20.0-40.0 [facility] Comment on above: Performed By: #### B JEISON, NAFISA, GFR, ANEU, TROPHS, PBNP, CBC, ADIFF ####[place] [address] [place], [place] [address] Monocyte, Absolute 0.7 10 3/mcL Normal 0.1-1.4 [facility] Comment on above: Performed By: #### B NAFISA MCHUGH, GFR, ANEU, TROPHS, PBNP, CBC, ADIFF ####[address] [place], [place] [address] Monocytes/100 WBC (Bld) 9.6 % Normal 2.0-13.0 [facility] Comment on above: Performed By: #### B NAFISA MCHUGH, GFR, ANEU, TROPHS, PBNP, CBC, ADIFF ####[place] [address] [place], [place] [address] Neutrophils/100 WBC (Bld) 58.3 % Normal 50.0-75.0 [facility] Comment on above: Performed By: #### B NAFISA MCHUGH, GFR, ANEU, TROPHS, PBNP, CBC, ADIFF ####[address] [place], [place] [address] .GFRon 02-09-2024 GFR 67 ml/min/1.73sqm Normal [facility] Comment on above: Result Comment: GFR Population mean for , Non- Americans Ages 20-29 = 116 mL/min/1.73 sq.m. Ages 30-39 = 107 mL/min/1.73 sq.m. Ages 40-49 = 99 mL/min/1.73 sq.m. Ages 50-59 = 93 mL/min/1.73 sq.m. Ages 60-69 = 85 mL/min/1.73 sq.m. Ages 70+ = 75 mL/min/1.73 sq.m. Chronic Kidney Disease: Less than 60 mL/min/1.73 square meters End Stage Renal Disease: Less than 15 mL/min/1.73 square meters Performed By: #### B NAFISA MCHUGH, GFR, ANEU, TROPHS, PBNP, CBC, ADIFF ####[address] [place], [place] [address] GFR Non- 55 ml/min/1.73sqm Normal [facility] Comment on above: Result Comment: GFR Population mean for , Non- Americans Ages 20-29 = 116 mL/min/1.73 sq.m. Ages 30-39 = 107 mL/min/1.73 sq.m. Ages 40-49 = 99 mL/min/1.73 sq.m. Ages 50-59 = 93 mL/min/1.73 sq.m. Ages 60-69 = 85 mL/min/1.73 sq.m. Ages 70+ = 75 mL/min/1.73 sq.m. Chronic Kidney Disease: Less than 60 mL/min/1.73 square meters End Stage Renal Disease: Less than 15 mL/min/1.73 square meters Performed By: #### B NAFIAS MCHUGH, GFR, ANEU, TROPHS, PBNP, CBC, ADIFF ####[address] [place], [place] [address] .Won 02-09-2024 Monocyte Distribution Width 17.09 Normal 0.00-20.00 [facility] Comment on above: Result Comment: For ED adult patients suspected of sepsis, MDW<=20.0 does not rule out sepsis or risk of sepsis Performed By: #### B MP, W, GFR, ANEU, TROPHS, PBNP, CBC, ADIFF ####[facility] [place], [place] [address] .NEUABSon 02-09-2024 Neutrophil, Absolute 4.4 10 3/mcL Normal 2.3-8.1 [facility] Comment on above: Performed By: #### B MP, W, GFR, ANEU, TROPHS, PBNP, CBC, ADIFF ####[facility] [place], [place] [address] BMPon 02-09-2024 BUN/Creatinine Ratio 26 ratio Normal 7-27 [facility] Comment on above: Performed By: #### B JEISON, W, GFR, ANEU, TROPHS, PBNP, CBC, ADIFF ####[place] [address] [place], [place] [address] Calcium [Mass/Vol] 10.4 mg/dL High 8.4-10.2 [facility] Comment on above: Performed By: #### B JEISON, W, GFR, ANEU, TROPHS, PBNP, CBC, ADIFF ####[place] [address] [place], [place] [address] Chloride [Moles/Vol] 104 mmol/L Normal 98-107 [facility] Comment on above: Performed By: #### B JEISON, W, GFR, ANEU, TROPHS, PBNP, CBC, ADIFF ####[address] [address] CO2 [Moles/Vol] 30 mmol/L Normal 23-31 [facility] Comment on above: Performed By: #### B MP, MDW, GFR, ANEU, TROPHS, PBNP, CBC, ADIFF ####[place] [address] [place], [place] [address] Creatinine [Mass/Vol] 0.96 mg/dL Normal 0.55-1.02 [facility] Comment on above: Result Comment: Test ing performed on Siemens Dimension EXL analyzer using a modified kinetic Dora technique. Performed By: #### B JEISON, MDW, GFR, ANEU, TROPHS, PBNP, CBC, ADIFF ####[address] [place], [place] [address] Electrolyte Balance 10.0 mEq/L Normal 4.0-15.0 [facility] Comment on above: Performed By: #### B JEISON, NAFISA, GFR, ANEU, TROPHS, PBNP, CBC, ADIFF ####[place] [address] [place], [place] [address] Glucose [Mass/Vol] 108 mg/dL Normal 83-110 [facility] Comment on above: Performed By: #### B JEISON, NAFISA, GFR, ANEU, TROPHS, PBNP, CBC, ADIFF ####[address] [address] [place], [place] [address] Potassium [Moles/Vol] 3.6 mmol/L Normal 3.5-5.1 [facility] Comment on above: Performed By: #### B NAFISA MCHUGH, GFR, ANEU, TROPHS, PBNP, CBC, ADIFF ####[place] [address] [place], [place] [address] Sodium [Moles/Vol] 144 mmol/L Normal 136-145 [facility] Comment on above: Performed By: #### B NAFISA MCHUGH, GFR, ANEU, TROPHS, PBNP, CBC, ADIFF ####[place] [address] [place], [place] [address] Urea nitrogen [Mass/Vol] 25 mg/dL High 7-18 [facility] Comment on above: Performed By: #### B NAFISA MCHUGH, GFR, ANEU, TROPHS, PBNP, CBC, ADIFF ####[place] [address] [place], [place] [address] CBCon 02-09-2024 Erythrocyte distribution width (RBC) [Ratio] 14.0 % Normal 11.5-15.5 [facility] Comment on above: Performed By: #### B NAFISA MCHUGH, GFR, ANEU, TROPHS, PBNP, CBC, ADIFF ####[address] [address] [place], [place] [address] Hematocrit (Bld) [Volume fraction] 34.7 % Normal 34.0-46.0 [facility] Comment on above: Performed By: #### B NAFISA MCHUGH, GFR, ANEU, TROPHS, PBNP, CBC, ADIFF ####[place] [address] [place], [place] [address] Hgb 11.7 G/dL Low 12.0-16.0 [facility] Comment on above: Performed By: #### B NAFISA MCHUGH, GFR, ANEU, TROPHS, PBNP, CBC, ADIFF ####[address] [place], [place] [address] MCH (RBC) [Entitic mass] 28.7 pg Normal 27.0-33.0 [facility] Comment on above: Performed By: #### B NAFISA MCHUGH, GFR, ANEU, TROPHS, PBNP, CBC, ADIFF ####[address] [place], [place] [address] MCHC 33.7 G/dL Normal 32.0-36.0 [facility] Comment on above: Performed By: #### B NAFISA MCHUGH, GFR, ANEU, TROPHS, PBNP, CBC, ADIFF ####[place] [address] [place], [place] [address] MCV (RBC) [Entitic vol] 85.0 fL Normal 80.0-99.0 [facility] Comment on above: Performed By: #### B NAFISA MCHUGH, GFR, ANEU, TROPHS, PBNP, CBC, ADIFF ####[place] [address] [place], [place] [address] Platelet 266 10 3/mcL Normal 150-450 [facility] Comment on above: Performed By: #### B NAFISA MCHUGH, GFR, ANEU, TROPHS, PBNP, CBC, ADIFF ####[place] [address] [place], [place] [address] Platelet mean volume (Bld) [Entitic vol] 7.4 fL Normal 6.6-10.5 [facility] Comment on above: Performed By: #### B NAFISA MCHUGH, GFR, ANEU, TROPHS, PBNP, CBC, ADIFF ####[address] [place], [place] [address] RBC 4.08 10 6/mcL Low 4.10-5.30 [facility] Comment on above: Performed By: #### B JEISON, NAFISA, GFR, ANEU, TROPHS, PBNP, CBC, ADIFF ####[address] [address] [place], [place] [address] WBC 7.6 10 3/mcL Normal 4.5-10.8 [facility] Comment on above: Performed By: #### B JEISON, NAFISA, GFR, ANEU, TROPHS, PBNP, CBC, ADIFF ####[address] [address] [place], [place] [address] LABORATORYOrdered By: Addis Pelayo on 02-09-2024 Appearance (U) Clear (02/09/24 7:58 PM) Normal Clear AO Auto Urine SS Bilirubin Ql (U) Negative (02/09/24 7:58 PM) Normal Negative AO Auto Urine SS Color (U) Yellow (02/09/24 7:58 PM) Normal AO Auto Urine SS Glucose Test strip (U) [Mass/Vol] Negative Normal Negative AO Auto Urine SS Hemoglobin Auto test strip (U) [Mass/Vol] Negative (02/09/24 7:58 PM) Normal Negative AO Auto Urine SS Ketones Ql (U) Negative Normal Negative AO Auto Ur ine SS UA Leuk Est Negative (02/09/24 7:58 PM) Normal Negative AO Auto Urine SS UA Nitrite Negative (02/09/24 7:58 PM) Normal Negative AO Auto Urine SS UA pH 6.5 (02/09/24 7:58 PM) Normal 5.0 - 8.0 AO Auto Urine SS UA Protein Negative Normal Negative AO Auto Urine SS UA Spec Grav 1.015 (02/09/24 7:58 PM) Normal 1.015-1.025 AO Auto Urine SS UA Specimen Type Void (02/09/24 7:58 PM) Normal AO Auto Urine SS UA Urobilinogen 0.2 E.U./dL Normal 0.2-1.0 AO Auto Urine SS LDose Valproic Acid: Unknown (02/09/24 7:52 PM) Normal AO Chemistry S LABORATORYOrdered By: SYSTEM SYSTEM on 02-09-2024 Valproate [Mass/Vol] 30 ug/mL Low 50 - 10 0 mcg/mL AO ADM SS Basophils (Bld) [#/Vol] 0.1 103/mcL Normal 0.0 - 0.2 10^3/mcL AO Workflow SS Basophils/100 WBC (Bld) 1.1 % Normal 0.0 - 2.5 % AO Workflow SS Calcium [Mass/Vol] 10.4 mg/dL High 8.4 - 10. 2 mg/dL AO ADM SS Chloride [Moles/Vol] 104 mmol/L Normal 98 - 10 7 mmol/L AO ADM SS CO2 [Moles/Vol] 30 mmol/L Normal 23 - 31 mmol/L AO ADM SS Creatinine [Mass/Vol] 0.96 mg/dL Normal 0.55 - 1.02 mg/dL AO ADM SS Comment on above: Interpretive Data: T esting performed on Siemens Dimension EXL analyzer using a modified kinetic Dora technique. Electrolyte Balance 10.0 mEq/L Normal 4.0 - 15 .0 mEq/L AO ADM SS Eosinophil, Absolute 0.1 103/mcL Normal 0.0 - 0 .7 10^3/mcL AO Workflow SS Eosinophils/100 WBC (Bld) 1.6 % Normal 0.0 - 7.0 % AO Workflow SS Erythrocyte distribution width (RBC) [Ratio] 14.0 % Normal 11.5 - 15.5 % AO Workflow SS GFR/1.73 sq M.predicted among blacks MDRD (S/P/Bld) [Vol rate/Area] 67 ml/min/1.73sqm Invalid Interpretation Code AO Chemistry S Comment on above: Interpretive Data: GFR Population mean for , Non- Americans Ages 20-29 = 116 mL/min/1.73 sq.m. Ages 30-39 = 107 mL/min/1.73 sq.m. Ages 40-49 = 99 mL/min/1.73 sq.m. Ages 50-59 = 93 mL/min/1.73 sq.m. Ages 60-69 = 85 mL/min/1.73 sq.m. Ages 70+ = 75 mL/min/1.73 sq.m. Chronic Kidney Disease: Less than 60 mL/min/1.73 square meters End Stage Renal Disease: Less than 15 mL/min/1.73 square meters GFR/1.73 sq M.predicted among non-blacks MDRD (S/P/Bld) [Vol rate/Area] 55 ml/min/1.73sqm Invalid Interpretation Code AO Chemistry S Comment on above: Interpretive Data: GFR Population mean for , Non- Americans Ages 20-29 = 116 mL/min/1.73 sq.m. Ages 30-39 = 107 mL/min/1.73 sq.m. Ages 40-49 = 99 mL/min/1.73 sq.m. Ages 50-59 = 93 mL/min/1.73 sq.m. Ages 60-69 = 85 mL/min/1.73 sq.m. Ages 70+ = 75 mL/min/1.73 sq.m. Chronic Kidney Disease: Less than 60 mL/min/1.73 square meters End Stage Renal Disease: Less than 15 mL/min/1.73 square meters Glucose [Mass/Vol] 108 mg/dL Normal 83 - 110 mg/dL AO ADM SS Hematocrit (Bld) [Volume fraction] 34.7 % Normal 34.0 - 46.0 % AO Workflow SS Hemoglobin (Bld) [Mass/Vol] 11.7 G/dL Low 12.0 - 16.0 G/dL AO Workflow SS Lymphocytes (Bld) [#/Vol] 2.2 103/mcL Normal 0.9 - 4.3 10^3/mcL AO Workflow SS Lymphocytes/100 WBC (Bld) 29.4 % Normal 20.0 - 40.0 % AO Workflow SS MCH (RBC) [Entitic mass] 28.7 pg Normal 27.0 - 33.0 pg AO Workflow SS MCHC 33.7 G/dL Normal 32.0 - 36.0 G/dL AO Workflow SS MCV (RBC) [Entitic vol] 85.0 fL Normal 80.0 - 99.0 fL AO Workflow SS Monocyte distribution width Auto (Bld) [Entitic vol] 17.09 1 Normal 0.00 - 20.00 AO Workflow SS Comment on above: Result Comment: For ED adult patients suspected of sepsis, MDW<=20.0 does not rule out sepsis or risk of sepsis Monocytes (Bld) [#/Vol] 0.7 103/mcL Normal 0.1 - 1.4 10^3/mcL AO Workflow SS Monocytes/100 WBC (Bld) 9.6 % Normal 2.0 - 13.0 % AO Workflow SS Natriuretic peptide.B prohormone N-Terminal [Mass/Vol] 3243 pg/mL High 0 - 450 pg/mL AO ADM SS Comment on above: Interpretive Data: N T-proBNP results of less than 300 pg/mL effectively rules out acute congestive heart failure with 99% negative predictive value. Neutrophils (Bld) [#/Vol] 4.4 103/mcL Normal 2.3 - 8.1 10^3/mcL AO Workflow SS Neutrophils/100 WBC (Bld) 58.3 % Normal 50.0 - 75.0 % AO Workflow SS Platelet mean volume (Bld) [Entitic vol] 7.4 fL Normal 6.6 - 10.5 fL AO Workflow SS Platelets (Bld) [#/Vol] 266 103/mcL Normal 150 - 450 10^3/mcL AO Workflow SS Potassium [Moles/Vol] 3.6 mmol/L Normal 3.5 - 5.1 mmol/L AO ADM SS RBC (Bld) [#/Vol] 4.08 106/mcL Low 4.10 - 5.3 0 10^6/mcL AO Workflow SS Sodium [Moles/Vol] 144 mmol/L Normal 136 - 145 mmol/L AO ADM SS Troponin I.cardiac DL <= 0.01 ng/mL [Mass/Vol] 23 ng/L Normal 0 - 51 ng/L AO ADM SS Comment on above: Interpretive Data: H igh Sensitive Troponin I Reference Ranges: Female: 0-51 ng/L Male: 0-76 ng/L Testing performed on [employer] using a homogeneous sandwich chemiluminescent immunoassay based on NEXAGE technology. Urea nitrogen [Mass/Vol] 25 mg/dL High 7 - 18 mg/dL AO ADM SS Urea nitrogen/Creatinine [Mass ratio] 26 ratio Normal 7 - 27 ratio AO ADM SS WBC (Bld) [#/Vol] 7.6 103/mcL Normal 4.5 - 10.8 10^3/mcL AO Workflow SS PBNPon 02-09-2024 Natriuretic peptide B (Bld) [Mass/Vol] 3243 pg/mL High 0-450 [facility] Comment on above: Result Comment: NT-p roBNP results of less than 300 pg/mL effectively rules out acute congestive heart failure with 99% negative predictive value. Performed By: #### B NAFISA MCHUGH, GFR, ANEU, TROPHS, PBNP, CBC, ADIFF ####[address] [place], [place] [address] TROPHSon 02-09-2024 High Sensitivity Troponin I 23 ng/L Normal 0-51 [facility] Comment on above: Result Comment: High Sensitive Troponin I Reference Ranges: Female: 0-51 ng/L Male: 0-76 ng/L Testing performed on [employer] using a homogeneous sandwich chemiluminescent immunoassay based on NEXAGE technology. Performed By: #### B NAFISA MCHUGH, GFR, ANEU, TROPHS, PBNP, CBC, ADIFF ####[address] [place] [address] UAon 02-09-2024 Color (U) Yellow Normal [facility] Comment on above: Performed By: #### U A ####[place] [address] [place] [address] Glucose (U) [Mass/Vol] Negative Normal Negative [facility] Comment on above: Performed By: #### U A ####[address] [place] [address] Ketones Ql (U) Negative Normal Negative [facility] Comment on above: Performed By: #### U A ####[address] [place] [address] UA Appear Clear Normal Clear [facility] Comment on above: Performed By: #### U A ####[address] [place] [address] UA Blood Negative Normal Negative [facility] Comment on above: Performed By: #### U A ####[address] [place] [address] UA Leuk Est Negative Normal Negative [facility] Comment on above: Performed By: #### U A ####[address] [place] [address] UA Nitrite Negative Normal Negative [facility] Comment on above: Performed By: #### U A ####[address] [place], [place] [address] UA pH 6.5 Normal 5.0 - 8.0 [facility] Comment on above: Performed By: #### U A ####[address] [place], [place] [address] UA Protein Negative Normal Negative [facility] Comment on above: Performed By: #### U A ####[address] [place], [place] [address] UA Spec Grav 1.015 Normal 1.015-1.025 [facility] Comment on above: Performed By: #### U A ####[address] [place] [address] UA Specimen Type Void Normal [facility] Comment on above: Performed By: #### U A ####[address] [place], [place] [address] UA Urobilinogen 0.2 E.U./dL Normal 0.2-1.0 [facility] Comment on above: Performed By: #### U A ####[address] [place], [place] [address] Urobilinogen (U) [Mass/Vol] Negative Normal Negative [facility] Comment on above: Performed By: #### U A ####[address] [place], [place] [address] VALPRon 02-09-2024 LDose Valproic Acid: Unknown Normal [facility] Comment on above: Performed By: #### V ALPR ####[address] [place] [address] Valproic Acid Lvl 30 mcg/mL Low 50-100 [facility] Comment on above: Performed By: #### V ALPR ####[address] [place] [id number] XR CHEST 1 VIEWon 02-09-2024 XR CHEST 1 VIEW ORIGINAL EXAMINATION: ONE XRAY VIEW OF THE CHEST02/09/2024 8:10 pm COMPARISON: 12/21/2023 HISTORY: ORDERING SYSTEM PROVIDED HISTORY: Reason for Exam: SOB/cough/fever FINDINGS: Cardiomediastinal contours are within normal limits. Hypoventilatory changes with associated bronchovascular crowding. No focal consolidation or pulmonary edema. No pleural effusion or visible pneumothorax. No acute osseous abnormality. Degenerative changes of the visualized osseous structures. IMPRESSION: No acute radiographic findings. I have personally reviewed the images of this examination and agree with the resident's findings and interpretation. Interpreted by: Eileen Christine Preliminary Report By: Daniel Kent Electronically signed By Eileen Christine Dictated Date: 02/09/2024 8:20:07 PM Prelim Date: 02/09/2024 8:25:07 PM Sign Date: 02/09/2024 9:08:10 PM Ordering Provider: TRIXIE BARONE Normal [facility] .Urinalysis Microscopic (AO) on 01-21-2024 UA Amorphus 1+ /hpf Normal [facility] Comment on above: Performed By: #### U A, UAMICAO ####[place] [address] [place] [address] UA CA Ox Crystal 1+ /hpf Normal [facility] Comment on above: Performed By: #### U A, UAMICAO ####[place] [address] [place] [address] UA Mucous 2+ /hpf Normal [facility] Comment on above: Performed By: #### U A, UAMICAO ####[place] [address] [place] [address] UA RBC 0-5 Abnormal None Seen [facility] Comment on above: Performed By: #### U A, UAMICAO ####[facility] [place] [address] UA Squam Epithelial 0-5 Abnormal None Seen [facility] Comment on above: Performed By: #### U A, UAMICAO ####[place] [address] [place] [address] UA WBC 0-5 Abnormal None Seen [facility] Comment on above: Performed By: #### U A, UAMICAO ####[facility] [place] [address] LABORATORYOrdered By: Mao Nava on 01-21-2024 Appearance (U) Clear (01/21/24 10:19 AM) Normal Clear AO Auto Urine SS Bilirubin Ql (U) Negative (01/21/24 10:19 AM) Normal Negative AO Auto Urine SS Calcium oxalate crystals LM.HPF (Urine sed) [#/Area] 1 /[HPF] Normal AO Auto Urine SS Color (U) Yellow (01/21/24 10:19 AM) Normal AO Auto Urine SS Crystals.amorphous LM.HPF (Urine sed) [#/Area] 1 /[HPF] Normal AO Auto Urine SS Glucose Test strip (U) [Mass/Vol] Negative Normal Negative AO Auto Urine SS Hemoglobin Auto test strip (U) [Mass/Vol] Negative (01/21/24 10:19 AM) Normal Negative AO Auto Urine SS Ketones Ql (U) Negative Normal Negative AO Auto Ur ine SS UA Leuk Est Negative (01/21/24 10:19 AM) Normal Negative AO Auto Urine SS UA Mucous 2+ /HPF Normal AO Auto Urine SS UA Nitrite Negative (01/21/24 10:19 AM) Normal Negative AO Auto Urine SS UA pH 6.0 (01/21/24 10:19 AM) Normal 5.0 - 8.0 AO Auto Urine SS UA Protein 30 mg/dL Normal Negative AO Auto Urine SS UA RBC 0-5 /HPF Invalid Interpretation Code None Seen AO Auto Urine SS UA Spec Grav 1.020 (01/21/24 10:19 AM) Normal 1.015-1.025 AO Auto Urine SS UA Specimen Type Hua Catheter (01/21/24 10:19 AM) Normal AO Auto Urine SS UA Squam Epithelial 0-5 /HPF Invalid Interpretation Code None Seen AO Auto Urine SS UA Urobilinogen 0.2 E.U./dL Normal 0.2-1.0 AO Auto Urine SS WBC LM.HPF (Urine sed) [#/Area] 0-5 /HPF Invalid Interpretation Code None Seen AO Auto Urine SS UAon 01-21-2024 Color (U) Yellow Normal [facility] Comment on above: Performed By: #### U A UAMICAO ####[facility] [place] [address] Glucose (U) [Mass/Vol] Negative Normal Negative [facility] Comment on above: Performed By: #### U A UAMICAO ####[address] [place] [address] Ketones Ql (U) Negative Normal Negative [facility] Comment on above: Performed By: #### U A, UAMICAO ####[address] [place] [address] UA Appear Clear Normal Clear [facility] Comment on above: Performed By: #### U A, UAMICAO ####[address] [place] [address] UA Blood Negative Normal Negative [facility] Comment on above: Performed By: #### U A, UAMICAO ####[address] [place] [address] UA Leuk Est Negative Normal Negative [facility] Comment on above: Performed By: #### U A, UAMICAO ####[address] [place] [address] UA Nitrite Negative Normal Negative [facility] Comment on above: Performed By: #### U A, UAMICAO ####[address] [address] UA pH 6.0 Normal 5.0 - 8.0 [facility] Comment on above: Performed By: #### U A, UAMICAO ####[address] [address] UA Protein 30 mg/dL Normal Negative [facility] Comment on above: Performed By: #### U A, UAMICAO ####[address] [place] [address] UA Spec Grav 1.020 Normal 1.015-1.025 [facility] Comment on above: Performed By: #### U A, UAMICAO ####[address] [place] [address] UA Specimen Type Hua Catheter Normal [facility] Comment on above: Performed By: #### U A, UAMICAO ####[address] [address] UA Urobilinogen 0.2 E.U./dL Normal 0.2-1.0 [facility] Comment on above: Performed By: #### U KRISHNA Jeter ####[address] [place], [place] [address] Urobilinogen (U) [Mass/Vol] Negative Normal Negative [facility] Comment on above: Performed By: #### U KRISHNA Jeter ####[address] [place], [place] [address] US BLADDERon 01-07-2024 US BLADDER ORIGINAL EXAMINATION: ULTRASOUND OF THE URINARY BLADDER 01/05/2024 COMPARISON: None. HISTORY: ORDERING SYSTEM PROVIDED HISTORY: Reason for Exam: urinary frequency All images are recorded and archived. FINDINGS: Distended bladder contains 171 mL and remain smooth in contour. There is no bladder mass or calcification. Following voiding there is a 49 mL residual volume. IMPRESSION: 49 mL post void residual bladder volume. Interpreted by: Wojciech Hill DO Preliminary Report By: Wojciech Hill DO Electronically signed By Wojciech Hill DO Dictated Date: 01/07/2024 11:23:45 AM Prelim Date: 01/07/2024 11:24:46 AM Sign Date: 01/07/2024 11:24:46 AM Ordering Provider: LARRY Geronimo [facility] .GFRon 12-29-2023 GFR 54 ml/min/1.73sqm Normal [facility] Comment on above: Result Comment: GFR Population mean for , Non- Americans Ages 20-29 = 116 mL/min/1.73 sq.m. Ages 30-39 = 107 mL/min/1.73 sq.m. Ages 40-49 = 99 mL/min/1.73 sq.m. Ages 50-59 = 93 mL/min/1.73 sq.m. Ages 60-69 = 85 mL/min/1.73 sq.m. Ages 70+ = 75 mL/min/1.73 sq.m. Chronic Kidney Disease: Less than 60 mL/min/1.73 square meters End Stage Renal Disease: Less than 15 mL/min/1.73 square meters Performed By: #### G FR, BMP, CAION ####[facility] [place], [place] [address] GFR Non- 44 ml/min/1.73sqm Normal [facility] Comment on above: Result Comment: GFR Population mean for , Non- Americans Ages 20-29 = 116 mL/min/1.73 sq.m. Ages 30-39 = 107 mL/min/1.73 sq.m. Ages 40-49 = 99 mL/min/1.73 sq.m. Ages 50-59 = 93 mL/min/1.73 sq.m. Ages 60-69 = 85 mL/min/1.73 sq.m. Ages 70+ = 75 mL/min/1.73 sq.m. Chronic Kidney Disease: Less than 60 mL/min/1.73 square meters End Stage Renal Disease: Less than 15 mL/min/1.73 square meters Performed By: #### G FR, BMP, CAION ####[place] [address] [place], [place] [address] BMPon 12-29-2023 BUN/Creatinine Ratio 20 ratio Normal 7-27 [facility] Comment on above: Performed By: #### G FR, BMP, CAION ####[facility] [place], [place] [address] Calcium [Mass/Vol] 10.3 mg/dL High 8.4-10.2 [facility] Comment on above: Performed By: #### Francoise FR, BMP, CAION ####[facility] [place], [place] [address] Chloride [Moles/Vol] 104 mmol/L Normal 98-107 [facility] Comment on above: Performed By: #### G FR, BMP, CAION ####[facility] [place], [place] [address] CO2 [Moles/Vol] 31 mmol/L Normal 23-31 [facility] Comment on above: Performed By: #### G FR, BMP, CAION ####[facility] [place], [place] [address] Creatinine [Mass/Vol] 1.16 mg/dL High 0.55-1.02 [facility] Comment on above: Result Comment: Test ing performed on Siemens Dimension EXL analyzer using a modified kinetic Dora technique. Performed By: #### LINDA SOLIS CAION ####[address] [place], [place] [address] Electrolyte Balance 7.0 mEq/L Normal 4.0-15.0 [facility] Comment on above: Performed By: #### LINDA SOLIS CAION ####[address] [place], [place] [address] Glucose [Mass/Vol] 92 mg/dL Normal 83-110 [facility] Comment on above: Performed By: #### LINDA SOLIS CAION ####[address] [place], [place] [address] Potassium [Moles/Vol] 4.2 mmol/L Normal 3.5-5.1 [facility] Comment on above: Performed By: #### LINDA SOLIS CAION ####[address] [place], [place] [address] Sodium [Moles/Vol] 142 mmol/L Normal 136-145 [facility] Comment on above: Performed By: #### LINDA SOLIS CAION ####[address] [place], [place] [address] Urea nitrogen [Mass/Vol] 23 mg/dL High 7-18 [facility] Comment on above: Performed By: #### LINDA SOLIS CAION ####[address] [place], [place] [address] CAIONon 12-29-2023 Calcium Ionized 1.27 mmol/L Normal 1.12-1.32 [facility] Comment on above: Performed By: #### LINDA SOLIS CAION ####[address] [place], [place] [address] LABORATORYOrdered By: SYSTEM SYSTEM on 12-29-2023 Calcium [Mass/Vol] 10.3 mg/dL High 8.4 - 10. 2 mg/dL AO ADM SS Chloride [Moles/Vol] 104 mmol/L Normal 98 - 10 7 mmol/L AO ADM SS CO2 [Moles/Vol] 31 mmol/L Normal 23 - 31 mmol/L AO ADM SS Creatinine [Mass/Vol] 1.16 mg/dL High 0.55 - 1.02 mg/dL AO ADM SS Comment on above: Interpretive Data: T esting performed on Siemens Dimension EXL analyzer using a modified kinetic Dora technique. Electrolyte Balance 7.0 mEq/L Normal 4.0 - 15 .0 mEq/L AO ADM SS GFR/1.73 sq M.predicted among blacks MDRD (S/P/Bld) [Vol rate/Area] 54 ml/min/1.73sqm Invalid Interpretation Code AO Chemistry S Comment on above: Interpretive Data: GFR Population mean for , Non- Americans Ages 20-29 = 116 mL/min/1.73 sq.m. Ages 30-39 = 107 mL/min/1.73 sq.m. Ages 40-49 = 99 mL/min/1.73 sq.m. Ages 50-59 = 93 mL/min/1.73 sq.m. Ages 60-69 = 85 mL/min/1.73 sq.m. Ages 70+ = 75 mL/min/1.73 sq.m. Chronic Kidney Disease: Less than 60 mL/min/1.73 square meters End Stage Renal Disease: Less than 15 mL/min/1.73 square meters GFR/1.73 sq M.predicted among non-blacks MDRD (S/P/Bld) [Vol rate/Area] 44 ml/min/1.73sqm Invalid Interpretation Code AO Chemistry S Comment on above: Interpretive Data: GFR Population mean for , Non- Americans Ages 20-29 = 116 mL/min/1.73 sq.m. Ages 30-39 = 107 mL/min/1.73 sq.m. Ages 40-49 = 99 mL/min/1.73 sq.m. Ages 50-59 = 93 mL/min/1.73 sq.m. Ages 60-69 = 85 mL/min/1.73 sq.m. Ages 70+ = 75 mL/min/1.73 sq.m. Chronic Kidney Disease: Less than 60 mL/min/1.73 square meters End Stage Renal Disease: Less than 15 mL/min/1.73 square meters Glucose [Mass/Vol] 92 mg/dL Normal 83 - 110 mg/dL AO ADM SS Potassium [Moles/Vol] 4.2 mmol/L Normal 3.5 - 5.1 mmol/L AO ADM SS Sodium [Moles/Vol] 142 mmol/L Normal 136 - 145 mmol/L AO ADM SS Urea nitrogen [Mass/Vol] 23 mg/dL High 7 - 18 mg/dL AO ADM SS Urea nitrogen/Creatinine [Mass ratio] 20 ratio Normal 7 - 27 ratio AO ADM SS LABORATORYOrdered By: Darshana Szymanski on 12-29-2023 Calcium Ionized 1.27 mmol/L Normal 1.12 - 1.32 mmol/L AO Rapid Comm SS XR CHEST 2 VIEWSon XR CHEST 2 VIEWS ORIGINAL EXAMINATION: TWO XRAY VIEWS OF THE CHEST12/21/2023 9:51 am XR Chest, two views COMPARISON: 12/05/2021 HISTORY: ORDERING SYSTEM PROVIDED HISTORY: Reason for Exam: confusion, elevated pbnp, leg swelling, FINDINGS: The lungs show no suspicious nodule, infiltrate, consolidation or mass. Heart size and mediastinal contours are stable accounting for differences in projection and patient position. No pneumothorax, pleural fluid, or vascular congestion is seen. The bones show no acute process. Mild calcification of aorta. Degenerative changes in the shoulders and spine. IMPRESSION: No acute cardio pulmonary process. Interpreted by: Jalil Downey MD Preliminary Report By: Jalil Downey MD Electronically signed By Jalil Downey MD Dictated Date: 12/21/2023 4:20:33 PM Prelim Date: 12/21/2023 4:21:17 PM Sign Date: 12/21/2023 4:21:17 PM Ordering Provider: LARRY THOMAS [facility] XR SPINE LUMBAR W/OBLIQUES 4 VIEWSon 12-21-2023 XR SPINE LUMBAR W/OBLIQUES 4 VIEWS ORIGINAL EXAMINATION: AP lateral obliques 4 XRAY VIEWS OF THE LUMBAR SPINE12/21/2023 9:52 am COMPARISON: MRI 10/20/2013 HISTORY: ORDERING SYSTEM PROVIDED HISTORY: Reason for Exam: Acute low back pain with right sided sciatica, FINDINGS: There is grade 1 L4-5 anterolisthesis also present on the previous MRI. There is moderate loss of height of the L5 body that seems greater than on the earlier MRI with mild retropulsion at the superior endplate. This is probably nonacute. Other lumbar vertebra show normal height. There is minimal L3-4 anterolisthesis also. No spondylolysis. Moderate lower lumbar facet arthropathy. Severe L5-S1 disc space narrowing the creased on the MRI. Symmetric SI joints. IMPRESSION: Moderate degenerative changes. There is apparent progression of L5 compression from the remote MRI, otherwise age uncertain. Interpreted by: Jalil Downey MD Preliminary Report By: Jalil Downey MD Electronically signed By Jalil Downey MD Dictated Date: 12/21/2023 4:31:09 PM Prelim Date: 12/21/2023 4:34:05 PM Sign Date: 12/21/2023 4:34:05 PM Ordering Provider: LARRY Geronimo [facility] B12on 12-16-2023 Cobalamin (Vitamin B12) [Mass/Vol] 509 pg/mL Normal 211-911 [facility] Comment on above: Performed By: #### F ES, FERR ####[place] [address]#### B12, FOL ####[place] [address] FOLon 12-16-2023 Folate >48.00 High 5.38-24.00 [facility] Comment on above: Performed By: #### F ES, FERR ####[place] [address]#### B12, FOL ####[place] [address] .Auto Diffon 12-15-2023 Basophil, Absolute 0.1 10 3/mcL Normal 0.0-0.2 [facility] Comment on above: Performed By: #### C MP, ADIFF, CBC, GFR, PBNP, ANEU #### [place] [id number] Basophils/100 WBC (Bld) 1.1 % Normal 0.0-2.5 [facility] Comment on above: Performed By: #### C MP, ADIFF, CBC, GFR, PBNP, ANEU #### [place] [id number] Eosinophil, Absolute 0.1 10 3/mcL Normal 0.0-0.7 [facility] Comment on above: Performed By: #### C MP, ADIFF, CBC, GFR, PBNP, ANEU #### [address] [address] Eosinophils/100 WBC (Bld) 1.4 % Normal 0.0-7.0 [facility] Comment on above: Performed By: #### C MP, ADIFF, CBC, GFR, PBNP, ANEU #### [address] [address] Lymphocyte, Absolute 1.7 10 3/mcL Normal 0.9-4.3 [facility] Comment on above: Performed By: #### C MP, ADIFF, CBC, GFR, PBNP, ANEU #### [address] [address] Lymphocytes/100 WBC (Bld) 20.9 % Normal 20.0-40.0 [facility] Comment on above: Performed By: #### C MP, ADIFF, CBC, GFR, PBNP, ANEU #### [address] [address] Monocyte, Absolute 0.5 10 3/mcL Normal 0.1-1.4 [facility] Comment on above: Performed By: #### C MP, ADIFF, CBC, GFR, PBNP, ANEU #### [address] [address] Monocytes/100 WBC (Bld) 6.0 % Normal 2.0-13.0 [facility] Comment on above: Performed By: #### C MP, ADIFF, CBC, GFR, PBNP, ANEU #### [address] [address] Neutrophils/100 WBC (Bld) 70.6 % Normal 50.0-75.0 [facility] Comment on above: Performed By: #### C MP, ADIFF, CBC, GFR, PBNP, ANEU #### [address] [address] .GFRon 12-15-2023 GFR 62 ml/min/1.73sqm Normal [facility] Comment on above: Result Comment: GFR Population mean for , Non- Americans Ages 20-29 = 116 mL/min/1.73 sq.m. Ages 30-39 = 107 mL/min/1.73 sq.m. Ages 40-49 = 99 mL/min/1.73 sq.m. Ages 50-59 = 93 mL/min/1.73 sq.m. Ages 60-69 = 85 mL/min/1.73 sq.m. Ages 70+ = 75 mL/min/1.73 sq.m. Chronic Kidney Disease: Less than 60 mL/min/1.73 square meters End Stage Renal Disease: Less than 15 mL/min/1.73 square meters Performed By: #### C MP, ADIFF, CBC, GFR, PBNP, ANEU #### [address] [address] GFR Non- 52 ml/min/1.73sqm Normal [facility] Comment on above: Result Comment: GFR Population mean for , Non- Americans Ages 20-29 = 116 mL/min/1.73 sq.m. Ages 30-39 = 107 mL/min/1.73 sq.m. Ages 40-49 = 99 mL/min/1.73 sq.m. Ages 50-59 = 93 mL/min/1.73 sq.m. Ages 60-69 = 85 mL/min/1.73 sq.m. Ages 70+ = 75 mL/min/1.73 sq.m. Chronic Kidney Disease: Less than 60 mL/min/1.73 square meters End Stage Renal Disease: Less than 15 mL/min/1.73 square meters Performed By: #### C MP, ADIFF, CBC, GFR, PBNP, ANEU #### [address] [address] .NEUABSon 12-15-2023 Neutrophil, Absolute 5.8 10 3/mcL Normal 2.3-8.1 [facility] Comment on above: Performed By: #### C MP, ADIFF, CBC, GFR, PBNP, ANEU #### [address] [address] CBCon 12-15-2023 Erythrocyte distribution width (RBC) [Ratio] 14.2 % Normal 11.5-15.5 [facility] Comment on above: Performed By: #### C MP, ADIFF, CBC, GFR, PBNP, ANEU #### [place] [address] Hematocrit (Bld) [Volume fraction] 34.6 % Normal 34.0-46.0 [facility] Comment on above: Performed By: #### C MP, ADIFF, CBC, GFR, PBNP, ANEU #### [place] [address] Hgb 11.7 G/dL Low 12.0-16.0 [facility] Comment on above: Performed By: #### C MP, ADIFF, CBC, GFR, PBNP, ANEU #### [place] [address] MCH (RBC) [Entitic mass] 28.7 pg Normal 27.0-33.0 [facility] Comment on above: Performed By: #### C MP, ADIFF, CBC, GFR, PBNP, ANEU #### [place] [address] MCHC 33.9 G/dL Normal 32.0-36.0 [facility] Comment on above: Performed By: #### C MP, ADIFF, CBC, GFR, PBNP, ANEU #### [place] [address] MCV (RBC) [Entitic vol] 84.8 fL Normal 80.0-99.0 [facility] Comment on above: Performed By: #### C MP, ADIFF, CBC, GFR, PBNP, ANEU #### [place] [id number] Platelet 363 10 3/mcL Normal 150-450 [facility] Comment on above: Performed By: #### C MP, ADIFF, CBC, GFR, PBNP, ANEU #### [address] [address] Platelet mean volume (Bld) [Entitic vol] 7.4 fL Normal 6.6-10.5 [facility] Comment on above: Performed By: #### C MP, ADIFF, CBC, GFR, PBNP, ANEU #### [address] [address] RBC 4.08 10 6/mcL Low 4.10-5.30 [facility] Comment on above: Performed By: #### C MP, ADIFF, CBC, GFR, PBNP, ANEU #### [address] [address] WBC 8.3 10 3/mcL Normal 4.5-10.8 [facility] Comment on above: Performed By: #### C MP, ADIFF, CBC, GFR, PBNP, ANEU #### [address] [address] CMPon 12-15-2023 Albumin Level 3.9 G/dL Normal 3.4-4.8 [facility] Comment on above: Performed By: #### C MP, ADIFF, CBC, GFR, PBNP, ANEU #### [address] [address] Albumin/Globulin [Mass ratio] 1.4 {ratio} Normal 1.1-2.5 [facility] Comment on above: Performed By: #### C MP, ADIFF, CBC, GFR, PBNP, ANEU #### [address] [address] ALP [Catalytic activity/Vol] 72 U/L Normal 40-135 [facility] Comment on above: Performed By: #### C MP, ADIFF, CBC, GFR, PBNP, ANEU #### [address] [address] ALT [Catalytic activity/Vol] 26 U/L Normal 14-59 [facility] Comment on above: Performed By: #### C MP, ADIFF, CBC, GFR, PBNP, ANEU #### [address] [address] AST [Catalytic activity/Vol] 18 U/L Normal 10-40 [facility] Comment on above: Performed By: #### C MP, ADIFF, CBC, GFR, PBNP, ANEU #### [address] [address] Bili Total 0.4 mg/dL Normal 0.2-1.0 [facility] Comment on above: Result Comment: Use of this assay is not recommended for patients undergoing treatment with eltrombopag due to the potential for falsely elevated results. Performed By: #### C MP, ADIFF, CBC, GFR, PBNP, ANEU #### [place] [id number] BUN/Creatinine Ratio 20 ratio Normal 7-27 [facility] Comment on above: Performed By: #### C MP, ADIFF, CBC, GFR, PBNP, ANEU #### [address] [address] Calcium [Mass/Vol] 10.8 mg/dL High 8.4-10.2 [facility] Comment on above: Performed By: #### C MP, ADIFF, CBC, GFR, PBNP, ANEU #### [address] [address] Chloride [Moles/Vol] 104 mmol/L Normal 98-107 [facility] Comment on above: Performed By: #### C MP, ADIFF, CBC, GFR, PBNP, ANEU #### [address] [address] CO2 [Moles/Vol] 30 mmol/L Normal 23-31 [facility] Comment on above: Performed By: #### C MP, ADIFF, CBC, GFR, PBNP, ANEU #### [address] [address] Creatinine [Mass/Vol] 1.02 mg/dL Normal 0.55-1.02 [facility] Comment on above: Result Comment: Test ing performed on Siemens Dimension EXL analyzer using a modified kinetic Dora technique. Performed By: #### C MP, ADIFF, CBC, GFR, PBNP, ANEU #### [address] [address] Electrolyte Balance 7.0 mEq/L Normal 4.0-15.0 [facility] Comment on above: Performed By: #### C MP, ADIFF, CBC, GFR, PBNP, ANEU #### [address] [address] Globulin 2.8 G/dL Normal [facility] Comment on above: Performed By: #### C MP, ADIFF, CBC, GFR, PBNP, ANEU #### [address] [address] Glucose [Mass/Vol] 105 mg/dL Normal 83-110 [facility] Comment on above: Performed By: #### C MP, ADIFF, CBC, GFR, PBNP, ANEU #### [address] [address] Potassium [Moles/Vol] 4.2 mmol/L Normal 3.5-5.1 [facility] Comment on above: Performed By: #### C MP, ADIFF, CBC, GFR, PBNP, ANEU #### [address] [address] Sodium [Moles/Vol] 141 mmol/L Normal 136-145 [facility] Comment on above: Performed By: #### C MP, ADIFF, CBC, GFR, PBNP, ANEU #### [address] [address] Total Protein 6.7 G/dL Normal 6.4-8.2 [facility] Comment on above: Performed By: #### C MP, ADIFF, CBC, GFR, PBNP, ANEU #### [address] [address] Urea nitrogen [Mass/Vol] 20 mg/dL High 7-18 [facility] Comment on above: Performed By: #### C MP, ADIFF, CBC, GFR, PBNP, ANEU #### [address] [place], [place] [address] Lucretia 12-15-2023 Ferritin [Mass/Vol] 197.0 ng/mL Normal 8.0-252.0 [facility] Comment on above: Performed By: #### F ES, FERR ####[address] [address]#### B12, FOL ####[address] [address] FESon 12-15-2023 Iron [Mass/Vol] 44 ug/dL Low 50-170 [facility] Comment on above: Performed By: #### F ES, FERR ####[place] [address]#### B12, FOL ####[place] [address] Iron Sat 15 % Normal [facility] Comment on above: Performed By: #### F ES, FERR ####[place] [address]#### B12, FOL ####[place] [address] TIBC 300 mcg/dL Normal 250-450 [facility] Comment on above: Performed By: #### F ES, FERR ####[place] [address]#### B12, FOL ####[place] [address] LABORATORYOrdered By: SYSTEM SYSTEM on 12-15-2023 Albumin BCP dye [Mass/Vol] 3.9 G/dL Normal 3.4 - 4.8 G/dL AO ADM SS Albumin/Globulin [Mass ratio] 1.4 {ratio} Normal 1.1 - 2.5 ratio AO ADM SS ALP [Catalytic activity/Vol] 72 U/L Normal 40 - 135 U/L AO ADM SS ALT With P-5'-P [Catalytic activity/Vol] 26 U/L Normal 14 - 59 U/L AO ADM SS AST With P-5'-P [Catalytic activity/Vol] 18 U/L Normal 10 - 40 U/L AO ADM SS Basophils (Bld) [#/Vol] 0.1 103/mcL Normal 0.0 - 0.2 10^3/mcL AO Workflow SS Basophils/100 WBC (Bld) 1.1 % Normal 0.0 - 2.5 % AO Workflow SS Bilirubin [Mass/Vol] 0.4 mg/dL Normal 0.2 - 1 .0 mg/dL AO ADM SS Comment on above: Interpretive Data: U se of this assay is not recommended for patients undergoing treatment with eltrombopag due to the potential for falsely elevated results. Calcium [Mass/Vol] 10.8 mg/dL High 8.4 - 10. 2 mg/dL AO ADM SS Chloride [Moles/Vol] 104 mmol/L Normal 98 - 10 7 mmol/L AO ADM SS CO2 [Moles/Vol] 30 mmol/L Normal 23 - 31 mmol/L AO ADM SS Creatinine [Mass/Vol] 1.02 mg/dL Normal 0.55 - 1.02 mg/dL AO ADM SS Comment on above: Interpretive Data: T esting performed on Siemens Dimension EXL analyzer using a modified kinetic Dora technique. Electrolyte Balance 7.0 mEq/L Normal 4.0 - 15 .0 mEq/L AO ADM SS Eosinophil, Absolute 0.1 103/mcL Normal 0.0 - 0 .7 10^3/mcL AO Workflow SS Eosinophils/100 WBC (Bld) 1.4 % Normal 0.0 - 7.0 % AO Workflow SS Erythrocyte distribution width (RBC) [Ratio] 14.2 % Normal 11.5 - 15.5 % AO Workflow SS Ferritin [Mass/Vol] 197.0 ng/mL Normal 8.0 - 25 2.0 ng/mL AO ADM SS GFR/1.73 sq M.predicted among blacks MDRD (S/P/Bld) [Vol rate/Area] 62 ml/min/1.73sqm Invalid Interpretation Code AO Chemistry S Comment on above: Interpretive Data: GFR Population mean for , Non- Americans Ages 20-29 = 116 mL/min/1.73 sq.m. Ages 30-39 = 107 mL/min/1.73 sq.m. Ages 40-49 = 99 mL/min/1.73 sq.m. Ages 50-59 = 93 mL/min/1.73 sq.m. Ages 60-69 = 85 mL/min/1.73 sq.m. Ages 70+ = 75 mL/min/1.73 sq.m. Chronic Kidney Disease: Less than 60 mL/min/1.73 square meters End Stage Renal Disease: Less than 15 mL/min/1.73 square meters GFR/1.73 sq M.predicted among non-blacks MDRD (S/P/Bld) [Vol rate/Area] 52 ml/min/1.73sqm Invalid Interpretation Code AO Chemistry S Comment on above: Interpretive Data: GFR Population mean for , Non- Americans Ages 20-29 = 116 mL/min/1.73 sq.m. Ages 30-39 = 107 mL/min/1.73 sq.m. Ages 40-49 = 99 mL/min/1.73 sq.m. Ages 50-59 = 93 mL/min/1.73 sq.m. Ages 60-69 = 85 mL/min/1.73 sq.m. Ages 70+ = 75 mL/min/1.73 sq.m. Chronic Kidney Disease: Less than 60 mL/min/1.73 square meters End Stage Renal Disease: Less than 15 mL/min/1.73 square meters Globulin 2.8 G/dL Invalid Interpretation Code AO ADM SS Glucose [Mass/Vol] 105 mg/dL Normal 83 - 110 mg/dL AO ADM SS Hematocrit (Bld) [Volume fraction] 34.6 % Normal 34.0 - 46.0 % AO Workflow SS Hemoglobin (Bld) [Mass/Vol] 11.7 G/dL Low 12.0 - 16.0 G/dL AO Workflow SS Iron [Mass/Vol] 44 ug/dL Low 50 - 170 mcg/dL AO ADM SS Iron binding capacity [Mass/Vol] 300 mcg/dL Normal 250 - 450 mcg/dL AO ADM SS Iron Sat 15 % Invalid Interpretation Code AO ADM SS Lymphocytes (Bld) [#/Vol] 1.7 103/mcL Normal 0.9 - 4.3 10^3/mcL AO Workflow SS Lymphocytes/100 WBC (Bld) 20.9 % Normal 20.0 - 40.0 % AO Workflow SS MCH (RBC) [Entitic mass] 28.7 pg Normal 27.0 - 33.0 pg AO Workflow SS MCHC 33.9 G/dL Normal 32.0 - 36.0 G/dL AO Workflow SS MCV (RBC) [Entitic vol] 84.8 fL Normal 80.0 - 99.0 fL AO Workflow SS Monocytes (Bld) [#/Vol] 0.5 103/mcL Normal 0.1 - 1.4 10^3/mcL AO Workflow SS Monocytes/100 WBC (Bld) 6.0 % Normal 2.0 - 13.0 % AO Workflow SS Natriuretic peptide.B prohormone N-Terminal [Mass/Vol] 1968 pg/mL High 0 - 450 pg/mL AO ADM SS Comment on above: Interpretive Data: N T-proBNP results of less than 300 pg/mL effectively rules out acute congestive heart failure with 99% negative predictive value. Neutrophils (Bld) [#/Vol] 5.8 103/mcL Normal 2.3 - 8.1 10^3/mcL AO Workflow SS Neutrophils/100 WBC (Bld) 70.6 % Normal 50.0 - 75.0 % AO Workflow SS Platelet mean volume (Bld) [Entitic vol] 7.4 fL Normal 6.6 - 10.5 fL AO Workflow SS Platelets (Bld) [#/Vol] 363 103/mcL Normal 150 - 450 10^3/mcL AO Workflow SS Potassium [Moles/Vol] 4.2 mmol/L Normal 3.5 - 5.1 mmol/L AO ADM SS Protein [Mass/Vol] 6.7 G/dL Normal 6.4 - 8.2 G/dL AO ADM SS RBC (Bld) [#/Vol] 4.08 106/mcL Low 4.10 - 5.3 0 10^6/mcL AO Workflow SS Sodium [Moles/Vol] 141 mmol/L Normal 136 - 145 mmol/L AO ADM SS Urea nitrogen [Mass/Vol] 20 mg/dL High 7 - 18 mg/dL AO ADM SS Urea nitrogen/Creatinine [Mass ratio] 20 ratio Normal 7 - 27 ratio AO ADM SS WBC (Bld) [#/Vol] 8.3 103/mcL Normal 4.5 - 10.8 10^3/mcL AO Workflow SS No Panel Informationon 12-14 Culture Urine No growth at 48 hours. [facility] PBNPon 12-15-2023 Natriuretic peptide B (Bld) [Mass/Vol] 1968 pg/mL High 0-450 [facility] Comment on above: Result Comment: NT-p roBNP results of less than 300 pg/mL effectively rules out acute congestive heart failure with 99% negative predictive value. Performed By: #### C MP, ADIFF, CBC, GFR, PBNP, ANEU ####[address] [place], [place] [address] LABORATORYOrdered By: Domingo Masterson on 12-09-2023 Appearance (U) Clear (12/09/23 9:15 AM) Normal Clear AO Auto Urine SS Bilirubin Ql (U) Negative (12/09/23 9:15 AM) Normal Negative AO Auto Urine SS Color (U) Yellow (12/09/23 9:15 AM) Normal AO Auto Urine SS Glucose Test strip (U) [Mass/Vol] Negative Normal Negative AO Auto Urine SS Hemoglobin Auto test strip (U) [Mass/Vol] Negative (12/09/23 9:15 AM) Normal Negative AO Auto Urine SS Ketones Ql (U) Negative Normal Negative AO Auto Ur ine SS UA Leuk Est Negative (12/09/23 9:15 AM) Normal Negative AO Auto Urine SS UA Nitrite Negative (12/09/23 9:15 AM) Normal Negative AO Auto Urine SS UA pH 7.5 (12/09/23 9:15 AM) Normal 5.0 - 8.0 AO Auto Urine SS UA Protein Negative Normal Negative AO Auto Urine SS UA Spec Grav 1.020 (12/09/23 9:15 AM) Normal 1.015-1.025 AO Auto Urine SS UA Specimen Type Clean Catch (12/09/23 9:15 AM) Normal AO Auto Urine SS UA Urobilinogen 0.2 E.U./dL Normal 0.2-1.0 AO Auto Urine SS UAon 12-09-2023 Color (U) Yellow Normal [facility] Comment on above: Performed By: #### U A ####[address] [place], [place] [address] Glucose (U) [Mass/Vol] Negative Normal Negative [facility] Comment on above: Performed By: #### U A ####[address] [place], [place] [address] Ketones Ql (U) Negative Normal Negative [facility] Comment on above: Performed By: #### U A ####[address] [place], [place] [address] UA Appear Clear Normal Clear [facility] Comment on above: Performed By: #### U A ####[address] [place], [place] [address] UA Blood Negative Normal Negative [facility] Comment on above: Performed By: #### U A ####[place] [address] [address] UA Leuk Est Negative Normal Negative [facility] Comment on above: Performed By: #### U A ####[place] [address] [address] UA Nitrite Negative Normal Negative [facility] Comment on above: Performed By: #### U A ####[address] [address] UA pH 7.5 Normal 5.0 - 8.0 [facility] Comment on above: Performed By: #### U A ####[address] [address] UA Protein Negative Normal Negative [facility] Comment on above: Performed By: #### U A ####[place] [address] [address] UA Spec Grav 1.020 Normal 1.015-1.025 [facility] Comment on above: Performed By: #### U A ####[place] [address] UA Specimen Type Clean Catch Normal [facility] Comment on above: Performed By: #### U A ####[address] [address] UA Urobilinogen 0.2 E.U./dL Normal 0.2-1.0 [facility] Comment on above: Performed By: #### U A ####[address] [address] Urobilinogen (U) [Mass/Vol] Negative Normal Negative [facility] Comment on above: Performed By: #### U A ####[address] [place], [place] [address] XR HIP RIGHT W/PELVIS 4 VIEW Son 11-29-2023 XR HIP RIGHT W/PELVIS 4 VIEWS ORIGINAL HISTORY: Pain COMPARISON: No FINDINGS: There are no acute fractures or dislocations. Alignment of the hip is within normal limits. There is mild joint space narrowing. Soft tissues are unremarkable. 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 Interpreted by: Gino Ivy MD Preliminary Report By: Gino Ivy MD Electronically signed By Gino Ivy MD Dictated Date: 11/29/2023 10:05:30 AM Prelim Date: 11/29/2023 11:51:51 AM Sign Date: 11/29/2023 11:51:51 AM Ordering Provider: SONNY STAHL [facility] .GFRon 07-08-2023 GFR 63 ml/min/1.73sqm Normal [facility] ([place]) Comment on above: Result Comment: GFR Population mean for , Non- Americans Ages 20-29 = 116 mL/min/1.73 sq.m. Ages 30-39 = 107 mL/min/1.73 sq.m. Ages 40-49 = 99 mL/min/1.73 sq.m. Ages 50-59 = 93 mL/min/1.73 sq.m. Ages 60-69 = 85 mL/min/1.73 sq.m. Ages 70+ = 75 mL/min/1.73 sq.m. Chronic Kidney Disease: Less than 60 mL/min/1.73 square meters End Stage Renal Disease: Less than 15 mL/min/1.73 square meters Performed By: #### G FR, A1C, ANEU, CBC, ADIFF, BMP #### [address] [place], [place] [address] GFR Non- 52 ml/min/1.73sqm Normal [facility] ([place]) Comment on above: Result Comment: GFR Population mean for , Non- Americans Ages 20-29 = 116 mL/min/1.73 sq.m. Ages 30-39 = 107 mL/min/1.73 sq.m. Ages 40-49 = 99 mL/min/1.73 sq.m. Ages 50-59 = 93 mL/min/1.73 sq.m. Ages 60-69 = 85 mL/min/1.73 sq.m. Ages 70+ = 75 mL/min/1.73 sq.m. Chronic Kidney Disease: Less than 60 mL/min/1.73 square meters End Stage Renal Disease: Less than 15 mL/min/1.73 square meters Performed By: #### G FR, A1C, ANEU, CBC, ADIFF, BMP #### [address] [address] BMPon 07-08-2023 BUN/Creatinine Ratio 19 ratio Normal 7-27 [facility] ([place]) Comment on above: Performed By: #### G FR, A1C, ANEU, CBC, ADIFF, BMP #### [address] [address] Calcium [Mass/Vol] 9.6 mg/dL Normal 8.4-10.2 [facility] ([place] Comment on above: Performed By: #### G FR, A1C, ANEU, CBC, ADIFF, BMP #### [address] [address] Chloride [Moles/Vol] 106 mmol/L Normal 98-107 [facility] ([place]) Comment on above: Performed By: #### G FR, A1C, ANEU, CBC, ADIFF, BMP #### [address] [address] CO2 [Moles/Vol] 29 mmol/L Normal 23-31 [facility] ([place]) Comment on above: Performed By: #### G FR, A1C, ANEU, CBC, ADIFF, BMP #### [address] [address] Creatinine [Mass/Vol] 1.02 mg/dL Normal 0.55-1.02 [facility] ([place]) Comment on above: Performed By: #### G FR, A1C, ANEU, CBC, ADIFF, BMP #### [address] [address] Electrolyte Balance 9.0 mEq/L Normal 4.0-15.0 [facility] ([place]) Comment on above: Performed By: #### G FR, A1C, ANEU, CBC, ADIFF, BMP #### [address] [address] Glucose [Mass/Vol] 118 mg/dL High 83-110 [facility] Comment on above: Performed By: #### G FR, A1C, ANEU, CBC, ADIFF, BMP #### [address] [address] Potassium [Moles/Vol] 3.7 mmol/L Normal 3.5-5.1 [facility] ([place]) Comment on above: Performed By: #### G FR, A1C, ANEU, CBC, ADIFF, BMP #### [address] [address] Sodium [Moles/Vol] 144 mmol/L Normal 136-145 [facility] ([place] Comment on above: Performed By: #### G FR, A1C, ANEU, CBC, ADIFF, BMP #### [address] [address] Urea nitrogen [Mass/Vol] 19 mg/dL High 7-18 [facility] ([place]) Comment on above: Performed By: #### G FR, A1C, ANEU, CBC, ADIFF, BMP #### [address] [address] LABORATORYOrdered By: SYSTEM SYSTEM on 07-08-2023 Calcium [Mass/Vol] 9.6 mg/dL Normal 8.4 - 10. 2 mg/dL AO ADM SS Chloride [Moles/Vol] 106 mmol/L Normal 98 - 10 7 mmol/L AO ADM SS CO2 [Moles/Vol] 29 mmol/L Normal 23 - 31 mmol/L AO ADM SS Creatinine [Mass/Vol] 1.02 mg/dL Normal 0.55 - 1.02 mg/dL AO ADM SS Electrolyte Balance 9.0 mEq/L Normal 4.0 - 15 .0 mEq/L AO ADM SS GFR/1.73 sq M.predicted among blacks MDRD (S/P/Bld) [Vol rate/Area] 63 ml/min/1.73sqm Invalid Interpretation Code AO Chemistry S Comment on above: Interpretive Data: GFR Population mean for , Non- Americans Ages 20-29 = 116 mL/min/1.73 sq.m. Ages 30-39 = 107 mL/min/1.73 sq.m. Ages 40-49 = 99 mL/min/1.73 sq.m. Ages 50-59 = 93 mL/min/1.73 sq.m. Ages 60-69 = 85 mL/min/1.73 sq.m. Ages 70+ = 75 mL/min/1.73 sq.m. Chronic Kidney Disease: Less than 60 mL/min/1.73 square meters End Stage Renal Disease: Less than 15 mL/min/1.73 square meters GFR/1.73 sq M.predicted among non-blacks MDRD (S/P/Bld) [Vol rate/Area] 52 ml/min/1.73sqm Invalid Interpretation Code AO Chemistry S Comment on above: Interpretive Data: GFR Population mean for , Non- Americans Ages 20-29 = 116 mL/min/1.73 sq.m. Ages 30-39 = 107 mL/min/1.73 sq.m. Ages 40-49 = 99 mL/min/1.73 sq.m. Ages 50-59 = 93 mL/min/1.73 sq.m. Ages 60-69 = 85 mL/min/1.73 sq.m. Ages 70+ = 75 mL/min/1.73 sq.m. Chronic Kidney Disease: Less than 60 mL/min/1.73 square meters End Stage Renal Disease: Less than 15 mL/min/1.73 square meters Glucose [Mass/Vol] 118 mg/dL High 83 - 110 mg/dL AO ADM SS Potassium [Moles/Vol] 3.7 mmol/L Normal 3.5 - 5.1 mmol/L AO ADM SS Sodium [Moles/Vol] 144 mmol/L Normal 136 - 145 mmol/L AO ADM SS Urea nitrogen [Mass/Vol] 19 mg/dL High 7 - 18 mg/dL AO ADM SS Urea nitrogen/Creatinine [Mass ratio] 19 ratio Normal 7 - 27 ratio AO ADM SS CT HEAD OR BRAIN W/O CONTRAS Ton 04-14-2023 CT HEAD OR BRAIN W/O CONTRAST ORIGINAL EXAMINATION: CT OF THE HEAD WITHOUT CONTRAST 04/14/2023 9:55 am TECHNIQUE: CT of the head was performed without the administration of intravenous contrast. Automated exposure control, iterative reconstruction, and/or weight based adjustment of the mA/kV was utilized to reduce the radiation dose to as low as reasonably achievable. COMPARISON: 12/03/2021 HISTORY: ORDERING SYSTEM PROVIDED HISTORY: Reason for Exam: alzheimers disease alzheimers disease. Increasing memory deficit over the past couple of years. FINDINGS: There is no acute intracranial hemorrhage, hydrocephalus, or mass effect. Moderate ventriculomegaly does not appear significantly changed from the prior examination is favored to represent moderate age-related volume loss. No lobar predominance is identified. Patchy white matter hypodensities are nonspecific but may represent moderate chronic microvascular angiopathy in a patient of this age. Atherosclerotic calcifications are present in the cavernous carotid arteries. Included paranasal sinuses and mastoid air cells appear clear. Soft tissue density in the bilateral external auditory canals likely reflects cerumen but would be amenable to direct visualization. No acute calvarial abnormality. IMPRESSION: No significant change from prior. Interpreted by: Veronika Richardson MD Preliminary Report By: Veronika Richardson MD Electronically signed By Veronika Richardson MD Dictated Date: 04/14/2023 10:32:56 AM Prelim Date: 04/14/2023 10:35:22 AM Sign Date: 04/14/2023 10:35:22 AM Ordering Provider: MAHAD Geronimo [facility]) METon 04-14-2023 Methylmalonic Acid 340 nmol/L Normal 0-378 [facility]) Comment on above: Result Comment: This test was developed and its performance characteristics determined by [facility]. It has not been cleared or approved by the Food and Drug Administration. Performed At: [address] [id number] Hima Lieberman MD Ph:[phone] Performed By: #### G FR, A1C, ANEU, CBC, ADIFF, BMP #### [facility] [address] [place], [place] [address] B12on 04-07-2023 Cobalamin (Vitamin B12) [Mass/Vol] 600 pg/mL Normal 211-911 [facility]) Comment on above: Performed By: #### F OL, B12 #### [place] [address] #### FT4, [id number], TSH #### [address] [address] FOLon 04-07-2023 Folate >48.00 High 5.38-24.00 [facility] ([place]) Comment on above: Performed By: #### F OL, B12 #### [place] [address] #### FT4, [id number], TSH #### [address] [address] FT4on 04-07-2023 Free T4 [Mass/Vol] 0.99 ng/dL Normal 0.76-1.46 [facility] ([place]) Comment on above: Performed By: #### F OL, B12 #### [place] [address] #### FT4, [id number], TSH #### [address] [address] LABORATORYOrdered By: SYSTEM SYSTEM on 04-07-2023 Cobalamin (Vitamin B12) [Mass/Vol] 600 pg/mL Normal 211 - 911 pg/mL AH ADM SS Folate [Mass/Vol] ng/mL High 5.38 - 24.00 ng/mL AH ADM SS Free T4 [Mass/Vol] 0.99 ng/dL Normal 0.76 - 1. 46 ng/dL AO ADM SS TSH Qn 1.65 m[IU]/L Normal 0.36 - 3.74 mcIU/mL AO ADM SS TSHon 04-07-2023 TSH Qn 1.65 m[IU]/L Normal 0.36-3.74 [facility] ([place]) Comment on above: Performed By: #### F OL, B12 #### [place] [address] #### FT4, [id number], TSH #### [address] [address] .Auto Diffon 03-10-2023 Basophil, Absolute 0.1 10 3/mcL Normal 0.0-0.2 [facility] ([place]) Comment on above: Performed By: #### G FR, A1C, ANEU, CBC, ADIFF, BMP #### [address] [address] Basophils/100 WBC (Bld) 1.2 % Normal 0.0-2.5 A [facility] ([place]) Comment on above: Performed By: #### G FR, A1C, ANEU, CBC, ADIFF, BMP #### [address] [address] Eosinophil, Absolute 0.1 10 3/mcL Normal 0.0-0.4 [facility] ([place]) Comment on above: Performed By: #### G FR, A1C, ANEU, CBC, ADIFF, BMP #### [address] [address] Eosinophils/100 WBC (Bld) 1.6 % Normal 0.0-7.0 [facility] ([place]) Comment on above: Performed By: #### G FR, A1C, ANEU, CBC, ADIFF, BMP #### [address] [address] Lymphocyte, Absolute 1.9 10 3/mcL Normal 0.8-3.9 [facility] ([place]) Comment on above: Performed By: #### G FR, A1C, ANEU, CBC, ADIFF, BMP #### [address] [address] Lymphocytes/100 WBC (Bld) 23.7 % Normal 10.0-50.0 [facility] ([place]) Comment on above: Performed By: #### G FR, A1C, ANEU, CBC, ADIFF, BMP #### [address] [address] Monocyte, Absolute 0.6 10 3/mcL Normal 0.2-1.0 [facility] ([place]) Comment on above: Performed By: #### G FR, A1C, ANEU, CBC, ADIFF, BMP #### [address] [address] Monocytes/100 WBC (Bld) 7.8 % Normal 1.7-13.0 A [facility] ([place]) Comment on above: Performed By: #### G FR, A1C, ANEU, CBC, ADIFF, BMP #### [address] [address] Neutrophils/100 WBC (Bld) 65.7 % Normal 37.0-80.0 [facility] ([place]) Comment on above: Performed By: #### G FR, A1C, ANEU, CBC, ADIFF, BMP #### [id number] [place], [place] [address] .GFRon 03-10-2023 GFR 63 ml/min/1.73sqm Normal [facility] ([place]) Comment on above: Result Comment: GFR Population mean for , Non- Americans Ages 20-29 = 116 mL/min/1.73 sq.m. Ages 30-39 = 107 mL/min/1.73 sq.m. Ages 40-49 = 99 mL/min/1.73 sq.m. Ages 50-59 = 93 mL/min/1.73 sq.m. Ages 60-69 = 85 mL/min/1.73 sq.m. Ages 70+ = 75 mL/min/1.73 sq.m. Chronic Kidney Disease: Less than 60 mL/min/1.73 square meters End Stage Renal Disease: Less than 15 mL/min/1.73 square meters Performed By: #### G FR, A1C, ANEU, CBC, ADIFF, BMP #### [address] [address] GFR Non- 52 ml/min/1.73sqm Normal [facility] ([place]) Comment on above: Result Comment: GFR Population mean for , Non- Americans Ages 20-29 = 116 mL/min/1.73 sq.m. Ages 30-39 = 107 mL/min/1.73 sq.m. Ages 40-49 = 99 mL/min/1.73 sq.m. Ages 50-59 = 93 mL/min/1.73 sq.m. Ages 60-69 = 85 mL/min/1.73 sq.m. Ages 70+ = 75 mL/min/1.73 sq.m. Chronic Kidney Disease: Less than 60 mL/min/1.73 square meters End Stage Renal Disease: Less than 15 mL/min/1.73 square meters Performed By: #### G FR, A1C, ANEU, CBC, ADIFF, BMP #### [address] [address] .NEUABSon 03-10-2023 Neutrophil, Absolute 5.2 10 3/mcL Normal 2.9-6.2 [facility] ([place]) Comment on above: Performed By: #### G FR, A1C, ANEU, CBC, ADIFF, BMP #### [place] [id number] A1Con 03-10-2023 HbA1c (Bld) [Mass fraction] 5.6 % Normal 4.3-6.4 [facility] ([place]) Comment on above: Performed By: #### G FR, A1C, ANEU, CBC, ADIFF, BMP #### [place] [id number] CBCon 03-10-2023 Erythrocyte distribution width (RBC) [Ratio] 14.7 % High 11.5-14.5 [facility] ([place]) Comment on above: Performed By: #### G FR, A1C, ANEU, CBC, ADIFF, BMP #### [place] [id number] Hematocrit (Bld) [Volume fraction] 35.6 % Low 37.0-47.0 [facility] ([place]) Comment on above: Performed By: #### G FR, A1C, ANEU, CBC, ADIFF, BMP #### [place] [address] Hgb 12.1 G/dL Normal 12.0-16.0 [facility] ([place]) Comment on above: Performed By: #### G FR, A1C, ANEU, CBC, ADIFF, BMP #### [address] [address] MCH (RBC) [Entitic mass] 27.8 pg Normal 27.0-31.2 [facility] ([place] Comment on above: Performed By: #### G FR, A1C, ANEU, CBC, ADIFF, BMP #### [address] [address] MCHC 34.1 G/dL Normal 33.0-37.0 [facility] ([place] Comment on above: Performed By: #### G FR, A1C, ANEU, CBC, ADIFF, BMP #### [address] [address] MCV (RBC) [Entitic vol] 81.7 fL Normal 80.0-94.0 A [facility] ([place]) Comment on above: Performed By: #### G FR, A1C, ANEU, CBC, ADIFF, BMP #### [place] [id number] Platelet 300 10 3/mcL Normal 130-400 [facility] ([place]) Comment on above: Performed By: #### G FR, A1C, ANEU, CBC, ADIFF, BMP #### [address] [address] Platelet mean volume (Bld) [Entitic vol] 8.0 fL Normal 7.4-10.4 [facility] ([place]) Comment on above: Performed By: #### G FR, A1C, ANEU, CBC, ADIFF, BMP #### [address] [address] RBC 4.35 10 6/mcL Normal 4.20-5.40 [facility] ([place]) Comment on above: Performed By: #### G FR, A1C, ANEU, CBC, ADIFF, BMP #### [address] [address] WBC 8.0 10 3/mcL Normal 4.6-10.8 [facility] ([place]) Comment on above: Performed By: #### G FR, A1C, ANEU, CBC, ADIFF, BMP #### [address] [address] CMPon 03-10-2023 Chloride [Moles/Vol] 102 mmol/L Normal 98-107 [facility] ([place]) Comment on above: Performed By: #### G FR, A1C, ANEU, CBC, ADIFF, BMP #### [address] [address] Electrolyte Balance 10.0 mEq/L Normal 4.0-15.0 [facility] ([place]) Comment on above: Performed By: #### G FR, A1C, ANEU, CBC, ADIFF, BMP #### [address] [address] Potassium [Moles/Vol] 4.3 mmol/L Normal 3.5-5.1 [facility] ([place]) Comment on above: Performed By: #### G FR, A1C, ANEU, CBC, ADIFF, BMP #### [address] [address] Sodium [Moles/Vol] 141 mmol/L Normal 136-145 [facility] [place] Comment [place]: Performed By: #### G FR, A1C, ANEU, CBC, ADIFF, BMP #### [address] [address] Albumin Level 3.7 G/dL Normal 3.4-4.8 [facility] ([place]) Comment on above: Performed By: #### G FR, A1C, ANEU, CBC, ADIFF, BMP #### [address] [address] Albumin/Globulin [Mass ratio] 1.1 {ratio} Normal 1.1-2.5 [facility] ([place]) Comment on above: Performed By: #### G FR, A1C, ANEU, CBC, ADIFF, BMP #### [address] [address] ALP [Catalytic activity/Vol] 79 U/L Normal 40-135 [facility] ([place] Comment on above: Performed By: #### G FR, A1C, ANEU, CBC, ADIFF, BMP #### [address] [address] ALT [Catalytic activity/Vol] 24 U/L Normal 14-59 [facility] ([place]) Comment on above: Performed By: #### G FR, A1C, ANEU, CBC, ADIFF, BMP #### [address] [address] AST [Catalytic activity/Vol] 12 U/L Normal 10-40 [facility] ([place]) Comment on above: Performed By: #### G FR, A1C, ANEU, CBC, ADIFF, BMP #### [address] [address] Bili Total 0.3 mg/dL Normal 0.2-1.0 [facility] ([place]) Comment on above: Result Comment: Use of this assay is not recommended for patients undergoing treatment with eltrombopag due to the potential for falsely elevated results. Performed By: #### G FR, A1C, ANEU, CBC, ADIFF, BMP #### [address] [address] BUN/Creatinine Ratio 25 ratio Normal 7-27 [facility] ([place] Comment on above: Performed By: #### G FR, A1C, ANEU, CBC, ADIFF, BMP #### [address] [address] Calcium [Mass/Vol] 10.1 mg/dL Normal 8.4-10.2 [facility] [place]: Performed By: #### G FR, A1C, ANEU, CBC, ADIFF, BMP #### [address] [address] CO2 [Moles/Vol] 29 mmol/L Normal 23-31 [facility] ([place]) Comment on above: Performed By: #### G FR, A1C, ANEU, CBC, ADIFF, BMP #### [address] [address] Creatinine [Mass/Vol] 1.02 mg/dL Normal 0.55-1.02 [facility] ([place] Comment on above: Performed By: #### G FR, A1C, ANEU, CBC, ADIFF, BMP #### [address] [address] Globulin 3.3 G/dL Normal [facility] ([place] Comment on above: Performed By: #### G FR, A1C, ANEU, CBC, ADIFF, BMP #### [address] [address] Glucose [Mass/Vol] 118 mg/dL High 83-110 [facility] [place]: Performed By: #### G FR, A1C, ANEU, CBC, ADIFF, BMP #### [address] [address] Total Protein 7.0 G/dL Normal 6.4-8.2 [facility] ([place]) Comment on above: Performed By: #### G FR, A1C, ANEU, CBC, ADIFF, BMP #### [address] [address] Urea nitrogen [Mass/Vol] 26 mg/dL High 7-18 [facility] ([place]) Comment on above: Performed By: #### G FR, A1C, ANEU, CBC, ADIFF, BMP #### [address] [address] LIPIDon 03-10-2023 Cholesterol [Mass/Vol] 214 mg/dL High 0-200 [facility] ([place]) Comment on above: Result Comment: Chol esterol Reference Interval: Less than 200 Desirable 200-239 Borderline high risk 240 and above High risk Performed By: #### G FR, A1C, ANEU, CBC, ADIFF, BMP #### [address] [address] Cholesterol in HDL [Mass/Vol] 62 mg/dL High 40-60 [facility] ([place] Comment on above: Performed By: #### G FR, A1C, ANEU, CBC, ADIFF, BMP #### [address] [address] Cholesterol in LDL [Mass/Vol] 111 mg/dL Normal 0-130 [facility] ([place]) Comment on above: Performed By: #### G FR, A1C, ANEU, CBC, ADIFF, BMP #### [address] [address] Triglyceride [Mass/Vol] 205 mg/dL High 0-150 [facility] ([place]) Comment on above: Result Comment: Trig lyceride Reference Interval: Less than 150 Normal 150-199 Borderline high risk 200-499 High risk 500 or higher Very high risk Performed By: #### G FR, A1C, ANEU, CBC, ADIFF, BMP #### [address] [address] PHOSon 03-10-2023 Phosphate [Mass/Vol] 3.2 mg/dL Normal 2.3-4.1 [facility] ([place] Comment on above: Performed By: #### G FR, A1C, ANEU, CBC, ADIFF, BMP #### [address] [address] PTHon 03-10-2023 PTH, Intact 78.2 pg/mL Normal 18.5-88.0 [facility] ([place]) Comment on above: Performed By: #### G FR, A1C, ANEU, CBC, ADIFF, BMP #### [address] [address] VIDHon 03-10-2023 Vit. D 25-Hydroxy 32.1 ng/mL Normal [facility] ([place]) Comment on above: Result Comment: Inte rpretive Values Based on Total 25(OH) Vitamin D: Deficient <20 ng/mL Insufficient 20 - <30 ng/mL Sufficient 30-100 ng/mL Performed By: #### G FR, A1C, ANEU, CBC, ADIFF, BMP #### [address] [address] BD BONE DENSITY DEXA AXIAL S KELETONon 12-14-2022 BD BONE DENSITY DEXA AXIAL SKELETON ORIGINAL EXAMINATION: BONE DENSITOMETRY 12/14/2022 9:31 am TECHNIQUE: A bone density dual x-ray absorptiometry (DEXA) scan was performed of the left forearm and left hip. COMPARISON: 06/06/2013 HISTORY: ORDERING SYSTEM PROVIDED HISTORY: Reason for Exam: Osteoporosis Screening FINDINGS: T Score Left Femoral Neck: -0.9 Left Femoral Neck: 0.744 (g/cm2) T Score Left Hip: -0.7 Left Hip: 0.854 (g/cm2) T Score Left Forearm: -3.2 Left Forearm: 0.500 (g/cm2) BMD Change from previous Hip: -7.4% BMD change from previous forearm:-10.9% IMPRESSION: Osteoporosis by WHO criteria. *By the World Health Organization criteria: (Comparing with young normal sex matched population) - Normal: T-score at or above -1 SD (standard deviation) - Osteopenia: T-score between -1 and -2.5 SD - Osteoporosis: T-score at or below -2.5 SD Interpreted by: Aldo Fernandez DO Preliminary Report By: Aldo Fernandez DO Electronically signed By Aldo Fernandez DO Dictated Date: 12/14/2022 9:36:00 AM Prelim Date: 12/14/2022 9:37:25 AM Sign Date: 12/14/2022 9:37:25 AM Ordering Provider: LARRY Geronimo [facility] ([place]) .Auto Diffon 09-16-2022 Basophil, Absolute 0.1 10 3/mcL Normal 0.0-0.2 [facility] ([place] Comment on above: Performed By: #### G FR, A1C, ANEU, CBC, ADIFF, BMP #### [address] [address] Basophils/100 WBC (Bld) 0.8 % Normal 0.0-2.5 A [facility] ([place]) Comment on above: Performed By: #### G FR, A1C, ANEU, CBC, ADIFF, BMP #### [address] [address] Eosinophil, Absolute 0.2 10 3/mcL Normal 0.0-0.4 [facility] ([place]) Comment on above: Performed By: #### G FR, A1C, ANEU, CBC, ADIFF, BMP #### [address] [address] Eosinophils/100 WBC (Bld) 2.1 % Normal 0.0-7.0 [facility] ([place] Comment on above: Performed By: #### G FR, A1C, ANEU, CBC, ADIFF, BMP #### [address] [address] Lymphocyte, Absolute 2.0 10 3/mcL Normal 0.8-3.9 [facility] ([place] Comment on above: Performed By: #### G FR, A1C, ANEU, CBC, ADIFF, BMP #### [address] [address] Lymphocytes/100 WBC (Bld) 22.9 % Normal 10.0-50.0 [facility] ([place]) Comment on above: Performed By: #### G FR, A1C, ANEU, CBC, ADIFF, BMP #### [address] [address] Monocyte, Absolute 0.5 10 3/mcL Normal 0.2-1.0 [facility] ([place] Comment on above: Performed By: #### G FR, A1C, ANEU, CBC, ADIFF, BMP #### [address] [address] Monocytes/100 WBC (Bld) 6.4 % Normal 1.7-13.0 A [facility] ([place]) Comment on above: Performed By: #### G FR, A1C, ANEU, CBC, ADIFF, BMP #### [address] [address] Neutrophils/100 WBC (Bld) 67.8 % Normal 37.0-80.0 [facility] ([place]) Comment on above: Performed By: #### G FR, A1C, ANEU, CBC, ADIFF, BMP #### [address] [address] .GFRon 09-16-2022 GFR Non- 48 ml/min/1.73sqm Normal [facility] ([place]) Comment on above: Result Comment: GFR Population mean for , Non- Americans Ages 20-29 = 116 mL/min/1.73 sq.m. Ages 30-39 = 107 mL/min/1.73 sq.m. Ages 40-49 = 99 mL/min/1.73 sq.m. Ages 50-59 = 93 mL/min/1.73 sq.m. Ages 60-69 = 85 mL/min/1.73 sq.m. Ages 70+ = 75 mL/min/1.73 sq.m. Chronic Kidney Disease: Less than 60 mL/min/1.73 square meters End Stage Renal Disease: Less than 15 mL/min/1.73 square meters Performed By: #### G FR, A1C, ANEU, CBC, ADIFF, BMP #### [address] [address] GFR 59 ml/min/1.73sqm Normal [facility] ([place]) Comment on above: Result Comment: GFR Population mean for , Non- Americans Ages 20-29 = 116 mL/min/1.73 sq.m. Ages 30-39 = 107 mL/min/1.73 sq.m. Ages 40-49 = 99 mL/min/1.73 sq.m. Ages 50-59 = 93 mL/min/1.73 sq.m. Ages 60-69 = 85 mL/min/1.73 sq.m. Ages 70+ = 75 mL/min/1.73 sq.m. Chronic Kidney Disease: Less than 60 mL/min/1.73 square meters End Stage Renal Disease: Less than 15 mL/min/1.73 square meters Performed By: #### G FR, A1C, ANEU, CBC, ADIFF, BMP #### [address] [address] .NEUABSon 09-16-2022 Neutrophil, Absolute 5.8 10 3/mcL Normal 2.9-6.2 [facility] ([place]) Comment on above: Performed By: #### G FR, A1C, ANEU, CBC, ADIFF, BMP #### [address] [address] A1Con 09-16-2022 HbA1c (Bld) [Mass fraction] 5.7 % Normal 4.3-6.4 [facility] ([place]) Comment on above: Performed By: #### G FR, A1C, ANEU, CBC, ADIFF, BMP #### [address] [address] BMPon 09-16-2022 BUN/Creatinine Ratio 27 ratio Normal 7-27 [facility] ([place] Comment on above: Performed By: #### G FR, A1C, ANEU, CBC, ADIFF, BMP #### [address] [address] Calcium [Mass/Vol] 9.8 mg/dL Normal 8.4-10.2 [facility] [place] Comment [place]: Performed By: #### G FR, A1C, ANEU, CBC, ADIFF, BMP #### [address] [address] Chloride [Moles/Vol] 106 mmol/L Normal 98-107 [facility] ([place]) Comment on above: Performed By: #### G FR, A1C, ANEU, CBC, ADIFF, BMP #### [address] [address] CO2 [Moles/Vol] 29 mmol/L Normal 23-31 [facility] ([place]) Comment on above: Performed By: #### G FR, A1C, ANEU, CBC, ADIFF, BMP #### [address] [address] Creatinine [Mass/Vol] 1.08 mg/dL High 0.55-1.02 [facility] ([place]) Comment on above: Performed By: #### G FR, A1C, ANEU, CBC, ADIFF, BMP #### [address] [address] Electrolyte Balance 8.0 mEq/L Normal 4.0-15.0 [facility] ([place]) Comment on above: Performed By: #### G FR, A1C, ANEU, CBC, ADIFF, BMP #### [address] [address] Glucose [Mass/Vol] 125 mg/dL High 83-110 [facility] [place]: Performed By: #### G FR, A1C, ANEU, CBC, ADIFF, BMP #### [address] [address] Potassium [Moles/Vol] 4.5 mmol/L Normal 3.5-5.1 [facility] ([place]) Comment on above: Performed By: #### G FR, A1C, ANEU, CBC, ADIFF, BMP #### [address] [address] Sodium [Moles/Vol] 143 mmol/L Normal 136-145 [facility] [place] Comment [place] above: Performed By: #### G FR, A1C, ANEU, CBC, ADIFF, BMP #### [address] [address] Urea nitrogen [Mass/Vol] 29 mg/dL High 7-18 [facility] ([place]) Comment on above: Performed By: #### G FR, A1C, ANEU, CBC, ADIFF, BMP #### [address] [address] CBCon 09-16-2022 Erythrocyte distribution width (RBC) [Ratio] 14.6 % High 11.5-14.5 [facility] ([place]) Comment on above: Performed By: #### G FR, A1C, ANEU, CBC, ADIFF, BMP #### [address] [address] Hematocrit (Bld) [Volume fraction] 33.9 % Low 37.0-47.0 [facility] ([place]) Comment on above: Performed By: #### G FR, A1C, ANEU, CBC, ADIFF, BMP #### [address] [address] Hgb 11.2 G/dL Low 12.0-16.0 [facility] ([place]) Comment on above: Performed By: #### G FR, A1C, ANEU, CBC, ADIFF, BMP #### [address] [address] MCH (RBC) [Entitic mass] 27.0 pg Normal 27.0-31.2 [facility] ([place]) Comment on above: Performed By: #### G FR, A1C, ANEU, CBC, ADIFF, BMP #### [address] [address] MCHC 33.1 G/dL Normal 33.0-37.0 [facility] ([place]) Comment on above: Performed By: #### G FR, A1C, ANEU, CBC, ADIFF, BMP #### [address] [address] MCV (RBC) [Entitic vol] 81.6 fL Normal 80.0-94.0 A [facility] ([place]) Comment on above: Performed By: #### G FR, A1C, ANEU, CBC, ADIFF, BMP #### [place] [address] [place], [place] [address] Platelet 275 10 3/mcL Normal 130-400 [facility] ([place]) Comment on above: Performed By: #### G FR, A1C, ANEU, CBC, ADIFF, BMP #### [address] [address] Platelet mean volume (Bld) [Entitic vol] 8.2 fL Normal 7.4-10.4 [facility] ([place]) Comment on above: Performed By: #### G FR, A1C, ANEU, CBC, ADIFF, BMP #### [address] [address] RBC 4.15 10 6/mcL Low 4.20-5.40 [facility] ([place]) Comment on above: Performed By: #### G FR, A1C, ANEU, CBC, ADIFF, BMP #### [address] [address] WBC 8.5 10 3/mcL Normal 4.6-10.8 [facility] ([place]) Comment on above: Performed By: #### G FR, A1C, ANEU, CBC, ADIFF, BMP #### [address] [address] LABORATORYOrdered By: SYSTEM SYSTEM on 06-19-2022 Basophils (Bld) [#/Vol] 0.1 103/mcL Invalid Interpretation Code 0.0 - 0.3 10^3/mcL AH Workflow SS Basophils/100 WBC (Bld) 0.9 % Invalid Interpretation Code 0.0 - 2.5 % AH Workflow SS Calcium [Mass/Vol] 10.0 mg/dL Invalid Interpretation Code 8.7 - 10.4 mg/dL AH ADM SS Chloride [Moles/Vol] 108 mmol/L Invalid Interpretation Code 98 - 110 mEq/L AH ADM SS CO2 [Moles/Vol] 28 mmol/L Invalid Interpretation Code 22 - 32 mEq/L ADM SS Creatinine [Mass/Vol] 0.87 mg/dL Invalid Interpretation Code 0.50 - 1.20 mg/dL ADM SS Electrolyte Balance 6.0 mEq/L Invalid Interpretation Code 4.0 - 15.0 mEq/L ADM SS Eosinophils (Bld) [#/Vol] 0.2 103/mcL Invalid Interpretation Code 0.0 - 0.7 10^3/mcL Workflow SS Eosinophils/100 WBC (Bld) 2.8 % Invalid Interpretation Code 0.0 - 6.0 % Workflow SS Erythrocyte distribution width (RBC) [Ratio] 14.2 % Invalid Interpretation Code 11.5 - 15.5 % Workflow SS GFR/1.73 sq M.predicted among blacks MDRD (S/P/Bld) [Vol rate/Area] ml/min/1.73sqm Invalid Interpretation Code Chemistry S GFR/1.73 sq M.predicted among non-blacks MDRD (S/P/Bld) [Vol rate/Area] ml/min/1.73sqm Invalid Interpretation Code Chemistry S Glucose [Mass/Vol] 117 mg/dL Invalid Interpretation Code 82 - 115 mg/dL ADM SS Hematocrit (Bld) [Volume fraction] 33.6 % Invalid Interpretation Code 34.0 - 46.0 % Workflow SS Hemoglobin (Bld) [Mass/Vol] 11.2 G/dL Invalid Interpretation Code 12.0 - 16.0 G/dL Workflow SS Lymphocytes (Bld) [#/Vol] 1.6 103/mcL Invalid Interpretation Code 0.9 - 4.3 10^3/mcL Workflow SS Lymphocytes/100 WBC (Bld) 24.2 % Invalid Interpretation Code 20.0 - 40.0 % Workflow SS MCH (RBC) [Entitic mass] 27.5 pg Invalid Interpretation Code 27.0 - 33.0 pg Workflow SS MCHC 33.4 G/dL Invalid Interpretation Code 32.0 - 36.0 G/dL Workflow SS MCV (RBC) [Entitic vol] 82.2 fL Invalid Interpretation Code 80.0 - 99.0 fL Workflow SS Monocytes (Bld) [#/Vol] 0.5 103/mcL Invalid Interpretation Code 0.1 - 1.4 10^3/mcL AH Workflow SS Monocytes/100 WBC (Bld) 8.1 % Invalid Interpretation Code 2.0 - 13.0 % AH Workflow SS Neutrophils (Bld) [#/Vol] 4.1 103/mcL Invalid Interpretation Code 2.3 - 8.1 10^3/mcL AH Workflow SS Neutrophils/100 WBC (Bld) 64.0 % Invalid Interpretation Code 50.0 - 75.0 % AH Workflow SS Platelet mean volume (Bld) [Entitic vol] 7.6 fL Invalid Interpretation Code 6.6 - 10.5 fL AH Workflow SS Platelets (Bld) [#/Vol] 287 103/mcL Invalid Interpretation Code 150 - 450 10^3/mcL AH Workflow SS Potassium [Moles/Vol] 4.2 mmol/L Invalid Interpretation Code 3.5 - 5.0 mEq/L AH ADM SS RBC (Bld) [#/Vol] 4.08 106/mcL Invalid Interpretation Code 4.10 - 5.30 10^6/mcL AH Workflow SS Sodium [Moles/Vol] 142 mmol/L Invalid Interpretation Code 136 - 145 mEq/L AH ADM SS Urea nitrogen [Mass/Vol] 24.0 mg/dL Invalid Interpretation Code 8.0 - 22.0 mg/dL AH ADM SS Urea nitrogen/Creatinine [Mass ratio] 27.6 ratio Invalid Interpretation Code 10.0 - 22.0 ratio AH ADM SS WBC (Bld) [#/Vol] 6.4 103/mcL Invalid Interpretation Code 4.5 - 10.8 10^3/mcL AH Workflow SS CNPNon 06-03-2022 CNPN Telephone (TONYA) [facility] ([id number]) 1940 F Date Time Provider Department 06/03/22 PAULA ALANIZ During your visit today, we recorded the following information about you: Brenton Jennings RN 06/03/2022 11:29 AM Signed Received a request from [facility] for all of Ct's left breast cancer treatment medical records. Faxed the request to medical records on [facility], fax confirmation sheet received. Brenton Jennings RN Allergies As of Date: 06/03/2022 Noted Allergy Reaction SULFA (SULFONAMIDE ANTIBIOTICS) 04/05/2017 5 - Intolerance Date Reviewed: 04/06/2022 Reviewed by: Mini Brooke LPN - Fully Assessed Reason for Visit: Request for medical records [Other] Prescriptions as of 06/03/2022 - anastrozole (ARIMIDEX) 1 mg tablet TAKE 1 TABLET BY MOUTH EVERY DAY - Ascorbic Acid 1,000 mg tablet Take 1,000 mg by mouth twice daily. - ginkgo biloba (GINKOBA ORAL) Take 1 tablet by mouth once daily. - docosahexaenoic acid/epa (FISH OIL ORAL) Take 1 capsule by mouth once daily. - hydrALAZINE (APRESOLINE) 25 mg tablet Take 25 mg by mouth once daily. - atorvastatin (LIPITOR) 10 mg tablet Take 10 mg by mouth once daily. - gabapentin 10 % cmap Apply 1 application to affected area once daily. - atenolol (TENORMIN) 50 mg tablet Take 100 mg by mouth once daily. - celecoxib (CELEBREX) 100 mg capsule Take 100 mg by mouth once daily. - cyclobenzaprine (FLEXERIL) 10 mg tablet Take 10 mg by mouth once daily as needed. - gabapentin (NEURONTIN) 300 mg capsule Take 300 mg by mouth twice daily. - hydroCHLOROthiazide (HYDRODIURIL, ESIDRIX) 25 mg tablet Take 25 mg by mouth once daily. - multivitamin tablet Take 1 tablet by mouth once daily. - CALCIUM CARBONATE/VITAMIN D3 (CALCIUM + D ORAL) Take 3 tablets by mouth once daily. Problem List As Of Date 06/03/2022 Noted Resolved Malignant neoplasm of overlapping sites of left*05/20/2017 Encounter Status:Closed by BRENTON JENNINGS on 06/03/22 Normal [facility] LABORATORYOrdered By: SYSTEM SYSTEM on 04-14-2022 Albumin BCP dye [Mass/Vol] 3.8 G/dL Invalid Interpretation Code 3.4 - 4.8 G/dL AO ADM SS Albumin/Globulin [Mass ratio] 1.5 {ratio} Invalid Interpretation Code 1.1 - 2.5 ratio AO ADM SS ALP [Catalytic activity/Vol] 84 U/L Invalid Interpretation Code 40 - 135 U/L AO ADM SS ALT With P-5'-P [Catalytic activity/Vol] 25 U/L Invalid Interpretation Code 14 - 59 U/L AO ADM SS AST With P-5'-P [Catalytic activity/Vol] 19 U/L Invalid Interpretation Code 10 - 40 U/L AO ADM SS Bili Indirect Unable to Calculate Invalid Interpretation Code AO Chemistry S Comment on above: Result Comment: Unab le to calculate this test result accurately. Results used to calculate this test are outside the reportable range. Bilirubin [Mass/Vol] 0.3 mg/dL Invalid Interpretation Code 0.2 - 1.0 mg/dL AO ADM SS Bilirubin.direct [Mass/Vol] mg/dL Invalid Interpretation Code 0.0 - 0.2 mg/dL AO ADM SS Globulin 2.6 G/dL Invalid Interpretation Code AO ADM SS Protein [Mass/Vol] 6.4 G/dL Invalid Interpretation Code 6.4 - 8.2 G/dL AO ADM SS CNOVon 04-06-2022 CNOV Office Visit (TONYA ) CT [facility] ([id number]) 1940 F Date Time Provider Department 04/06/22 9:30 AM PAULA ALANIZ During your visit today, we recorded the following information about you: Temperature Pulse Blood pressure Weight 97.8 degrees 109/minute 148/70 73.9 kg Height 1.575 m Mini Brooke LPN 04/06/2022 9:50 AM Signed REVIEW OF SYSTEMS: General: The patient denies fatigue, notes weight loss, denies weight gain, denies feeling hot, and denies feelings of cold. Eyes: The patient denies glaucoma, notes eye injury/surgery, wears glasses or contacts. Ear/Nose/Throat: The patient notes allergies, denies hayfever, denies ear infections, and denies bloody noses. Cardiovascular: The patient denies chest pain, denies heart disease, notes high blood pressure,denies cardiac stent, denies prior heart attack, denies irregular heart beat, notes high cholesterol, denies poor circulation, denies heart failure, other cardiac issues, denies claudication, denies cold feet, denies peripheral arterial stent. Respiratory: The patient denies tuberculosis, denies pneumonia, denies frequent cough, denies pulmonary embolism, denies shortness of breath, and denies coughing up blood. Gastrointestinal: The patient denies difficulty swallowing, denies acid reflux, denies ulcers, denies vomiting, denies jaundice/hepatitis, denies gallbladder problems, denies black or tarry stools, denies hemorrhoids, denies bleeding from rectum, denies diverticulitis, denies constipation, denies diarrhea, denies loss of stool control, and denies hernias. Kidney/Bladder: The patient denies kidney stones, denies urine infections, and denies bloody urine. Skin: The patient denies a history of skin cancer, denies bleeding/changing moles, and denies a history of skin rash. Neurologic: The patient denies a history of epilepsy/convulsions, denies headaches, denies head/spinal injuries, and denies stroke/TIA. Psychiatric: The patient denies psychiatric medications, denies depression, and denies voices, denies substance abuse. Endocrine: The patient denies thyroid disorders, denies diabetes, and denies hormonal problems. Hematologic: The patient denies a history of bruising, denies bleeding, and denies anemia, denies blood clots. Infections: The patient notes a history of measles and mumps, denies rheumatic fever, and denies sexually transmitted diseases. Musculoskeletal: The patient denies back pain/injury, notes back problems, denies sciatica, denies knee/foot trouble, denies arthritis, or denies gout. When was patient's last Mammogram screening? 2022 Last Colonoscopy: over 10+ years ago MATILDE Leslie MD 04/08/2022 1:[address] [place] 1940 REFERRING PHYSICIAN: No ref. provider found CHIEF COMPLAINT: Consult (Left breast consult) HPI: The patient is a 81 year old female presents with abnormal findings of left breast radiographs. She has a history of left breast cancer, stage II, s/p left breast lumpectomy/SLNBrbx in 2018. She is presently on anastrazole She denies palpable breast masses. She denies nipple discharge. She denies breast pain. She has been undergoing yearly surveillance mammograms, the most recent with abnormal findings. She underwent US guided needle core breast biopsies on 03/23/2022 at [facility]. Findings of fat necrosis, inflammation and dense fibrosis, vascular calcifications. The radiologist states that pathology findings are not concordant with radiological studies and therefore recommended lumpectomy via wire localization. Patient is here for evaluation. PAST MEDICAL HISTORY Diagnosis Date Anemia Breast cancer (HCC) 03/2017 left CKD (chronic kidney disease) HTN (hypertension) Hypercholesteremia Memory impairment Mixed hyperlipidemia Osteoarthritis of multiple joints PAST SURGICAL HISTORY Procedure Laterality Date ADENOIDECTOMY HX BACK SURGERY HX BREAST LUMPECTOMY HX Left 04/2017 sentinel lymph node biopsy DILATION AND CURETTAGE DXAND/THER NONOBSTETRIC Dilation AND curettage PAST SURGICAL HISTORY OF Left 2022 breast biopsy TONSILLECTOMY AND ADENOIDECTOMY HX TUBAL LIGATION HX UPPER ARM/ELBOW SURGERY UNLISTED Current Outpatient Medications Medication Sig anastrozole (ARIMIDEX) 1 mg tablet TAKE 1 TABLET BY MOUTH EVERY DAY hydrALAZINE (APRESOLINE) 25 mg tablet Take 25 mg by mouth once daily. atorvastatin (LIPITOR) 10 mg tablet Take 10 mg by mouth once daily. atenolol (TENORMIN) 50 mg tablet Take 100 mg by mouth once daily. celecoxib (CELEBREX) 100 mg capsule Take 100 mg by mouth once daily. gabapentin (NEURONTIN) 300 mg capsule Take 300 mg by mouth twice daily. hydroCHLOROthiazide (HYDRODIURIL, ESIDRIX) 25 mg tablet Take 25 mg by mouth once daily. multivitamin tablet Take 1 tablet by mouth once daily. (more content not included)... Normal [facility] LABORATORYOrdered By: SYSTEM SYSTEM on 03-09-2022 Albumin BCP dye [Mass/Vol] 3.9 G/dL Invalid Interpretation Code 3.4 - 4.8 G/dL AO ADM SS Albumin/Globulin [Mass ratio] 1.3 {ratio} Invalid Interpretation Code 1.1 - 2.5 ratio AO ADM SS ALP [Catalytic activity/Vol] 78 U/L Invalid Interpretation Code 40 - 135 U/L AO ADM SS ALT With P-5'-P [Catalytic activity/Vol] 23 U/L Invalid Interpretation Code 14 - 59 U/L AO ADM SS AST With P-5'-P [Catalytic activity/Vol] 23 U/L Invalid Interpretation Code 10 - 40 U/L AO ADM SS Bilirubin [Mass/Vol] 0.5 mg/dL Invalid Interpretation Code 0.2 - 1.0 mg/dL AO ADM SS Calcium [Mass/Vol] 10.0 mg/dL Invalid Interpretation Code 8.4 - 10.2 mg/dL AO ADM SS Chloride [Moles/Vol] 105 mmol/L Invalid Interpretation Code 98 - 107 mmol/L AO ADM SS CO2 [Moles/Vol] 29 mmol/L Invalid Interpretation Code 23 - 31 mmol/L AO ADM SS Creatinine [Mass/Vol] 1.01 mg/dL Invalid Interpretation Code 0.55 - 1.02 mg/dL AO ADM SS Electrolyte Balance 6.0 mEq/L Invalid Interpretation Code 4.0 - 15.0 mEq/L AO ADM SS Ferritin [Mass/Vol] 98.0 ng/mL Invalid Interpretation Code 8.0 - 252.0 ng/mL AO ADM SS GFR 63 ml/min/1.73sqm Invalid Interpretation Code AO Chemistry S GFR Non- 52 ml/min/1.73sqm Invalid Interpretation Code AO Chemistry S Globulin 2.9 G/dL Invalid Interpretation Code AO ADM SS Glucose [Mass/Vol] 120 mg/dL Invalid Interpretation Code 83 - 110 mg/dL AO ADM SS HbA1c (Bld) [Mass fraction] 5.7 % Invalid Interpretation Code 4.3 - 6.4 % AO ADM SS Iron [Mass/Vol] 65 ug/dL Invalid Interpretation Code 50 - 170 mcg/dL AO ADM SS Iron binding capacity [Mass/Vol] 310 mcg/dL Invalid Interpretation Code 250 - 450 mcg/dL AO ADM SS Iron Sat 21 1 Invalid Interpretation Code AO ADM SS Parathyrin.intact [Mass/Vol] 65.4 pg/mL Invalid Interpretation Code 18.5 - 88.0 pg/mL AH ADM SS Phosphate [Mass/Vol] 3.4 mg/dL Invalid Interpretation Code 2.3 - 4.1 mg/dL AO ADM SS Potassium [Moles/Vol] 4.4 mmol/L Invalid Interpretation Code 3.5 - 5.1 mmol/L AO ADM SS Protein [Mass/Vol] 6.8 G/dL Invalid Interpretation Code 6.4 - 8.2 G/dL AO ADM SS Sodium [Moles/Vol] 140 mmol/L Invalid Interpretation Code 136 - 145 mmol/L AO ADM SS Urea nitrogen [Mass/Vol] 21 mg/dL Invalid Interpretation Code 7 - 18 mg/dL AO ADM SS Urea nitrogen/Creatinine [Mass ratio] 21 ratio Invalid Interpretation Code 7 - 27 ratio AO ADM SS Vit. D 25-Hydroxy 38.5 ng/mL Invalid Interpretation Code AO ADM SS LABORATORYOrdered By: Zaki Camargo on 03-09-2022 Basophil, Absolute 0.1 103/mcL Invalid Interpretation Code 0.0 - 0.2 10^3/mcL AO Workflow SS Basophils/100 WBC (Bld) 1.0 % Invalid Interpretation Code 0.0 - 2.5 % AO Workflow SS Eosinophil, Absolute 0.1 103/mcL Invalid Interpretation Code 0.0 - 0.4 10^3/mcL AO Workflow SS Eosinophils/100 WBC (Bld) 1.4 % Invalid Interpretation Code 0.0 - 7.0 % AO Workflow SS Erythrocyte distribution width (RBC) [Ratio] 13.9 % Invalid Interpretation Code 11.5 - 14.5 % AO Workflow SS Hematocrit (Bld) [Volume fraction] 35.6 % Invalid Interpretation Code 37.0 - 47.0 % AO Workflow SS Hemoglobin (Bld) [Mass/Vol] 11.8 G/dL Invalid Interpretation Code 12.0 - 16.0 G/dL AO Workflow SS Lymphocyte, Absolute 1.8 103/mcL Invalid Interpretation Code 0.8 - 3.9 10^3/mcL AO Workflow SS Lymphocytes/100 WBC (Bld) 22.4 % Invalid Interpretation Code 10.0 - 50.0 % AO Workflow SS MCH (RBC) [Entitic mass] 27.3 pg Invalid Interpretation Code 27.0 - 31.2 pg AO Workflow SS MCHC 33.2 G/dL Invalid Interpretation Code 33.0 - 37.0 G/dL AO Workflow SS MCV (RBC) [Entitic vol] 82.4 fL Invalid Interpretation Code 80.0 - 94.0 fL AO Workflow SS Monocyte, Absolute 0.5 103/mcL Invalid Interpretation Code 0.2 - 1.0 10^3/mcL AO Workflow SS Monocytes/100 WBC (Bld) 6.5 % Invalid Interpretation Code 1.7 - 13.0 % AO Workflow SS Neutrophil, Absolute 5.6 103/mcL Invalid Interpretation Code 2.9 - 6.2 10^3/mcL AO Workflow SS Neutrophils/100 WBC (Bld) 68.7 % Invalid Interpretation Code 37.0 - 80.0 % AO Workflow SS Platelet mean volume (Bld) [Entitic vol] 7.6 fL Invalid Interpretation Code 7.4 - 10.4 fL AO Workflow SS Platelets (Bld) [#/Vol] 303 103/mcL Invalid Interpretation Code 130 - 400 10^3/mcL AO Workflow SS RBC (Bld) [#/Vol] 4.31 106/mcL Invalid Interpretation Code 4.20 - 5.40 10^6/mcL AO Workflow SS WBC (Bld) [#/Vol] 8.1 103/mcL Invalid Interpretation Code 4.6 - 10.8 10^3/mcL AO Workflow SS LABORATORYOrdered By: Claire Wolff on 03-09-2022 Cholesterol [Mass/Vol] 198 mg/dL Invalid Interpretation Code 0 - 200 mg/dL AO ADM SS Cholesterol in HDL [Mass/Vol] 72 mg/dL Invalid Interpretation Code 40 - 60 mg/dL AO ADM SS Cholesterol in LDL [Mass/Vol] 112 mg/dL Invalid Interpretation Code 0 - 130 mg/dL AO ADM SS Triglyceride [Mass/Vol] 68 mg/dL Invalid Interpretation Code 0 - 150 mg/dL AO ADM SS LABORATORYOrdered By: Nunu Stratton on 12-25-2021 Basophil, Absolute 0.1 103/mcL Invalid Interpretation Code 0.0 - 0.2 10^3/mcL AO Workflow SS Basophils/100 WBC (Bld) 0.6 % Invalid Interpretation Code 0.0 - 2.5 % AO Workflow SS Eosinophil, Absolute 0.1 103/mcL Invalid Interpretation Code 0.0 - 0.4 10^3/mcL AO Workflow SS Eosinophils/100 WBC (Bld) 0.6 % Invalid Interpretation Code 0.0 - 7.0 % AO Workflow SS Erythrocyte distribution width (RBC) [Ratio] 14.7 % Invalid Interpretation Code 11.5 - 14.5 % AO Workflow SS Hematocrit (Bld) [Volume fraction] 32.5 % Invalid Interpretation Code 37.0 - 47.0 % AO Workflow SS Hemoglobin (Bld) [Mass/Vol] 10.9 G/dL Invalid Interpretation Code 12.0 - 16.0 G/dL AO Workflow SS Lymphocyte, Absolute 1.1 103/mcL Invalid Interpretation Code 0.8 - 3.9 10^3/mcL AO Workflow SS Lymphocytes/100 WBC (Bld) 12.2 % Invalid Interpretation Code 10.0 - 50.0 % AO Workflow SS MCH (RBC) [Entitic mass] 27.8 pg Invalid Interpretation Code 27.0 - 31.2 pg AO Workflow SS MCHC 33.6 G/dL Invalid Interpretation Code 33.0 - 37.0 G/dL AO Workflow SS MCV (RBC) [Entitic vol] 82.7 fL Invalid Interpretation Code 80.0 - 94.0 fL AO Workflow SS Monocyte distribution width Auto (Bld) [Entitic vol] 17.45 Invalid Interpretation Code 0.00 - 20.00 AO Workflow SS Comment on above: Result Comment: For ED adult patients suspected of sepsis, MDW<=20.0 does not rule out sepsis or risk of sepsis Monocyte, Absolute 0.5 103/mcL Invalid Interpretation Code 0.2 - 1.0 10^3/mcL AO Workflow SS Monocytes/100 WBC (Bld) 5.2 % Invalid Interpretation Code 1.7 - 13.0 % AO Workflow SS Neutrophil, Absolute 7.2 103/mcL Invalid Interpretation Code 2.9 - 6.2 10^3/mcL AO Workflow SS Neutrophils/100 WBC (Bld) 81.4 % Invalid Interpretation Code 37.0 - 80.0 % AO Workflow SS Platelet mean volume (Bld) [Entitic vol] 6.9 fL Invalid Interpretation Code 7.4 - 10.4 fL AO Workflow SS Platelets (Bld) [#/Vol] 304 103/mcL Invalid Interpretation Code 130 - 400 10^3/mcL AO Workflow SS RBC (Bld) [#/Vol] 3.93 106/mcL Invalid Interpretation Code 4.20 - 5.40 10^6/mcL AO Workflow SS WBC (Bld) [#/Vol] 8.8 103/mcL Invalid Interpretation Code 4.6 - 10.8 10^3/mcL AO Workflow SS LABORATORYOrdered By: Domingo Masterson on 12-25-2021 Calcium [Mass/Vol] 10.2 mg/dL Invalid Interpretation Code 8.4 - 10.2 mg/dL AO ADM SS Chloride [Moles/Vol] 105 mmol/L Invalid Interpretation Code 98 - 107 mmol/L AO ADM SS CO2 [Moles/Vol] 29 mmol/L Invalid Interpretation Code 23 - 31 mmol/L AO ADM SS Creatinine [Mass/Vol] 1.06 mg/dL Invalid Interpretation Code 0.55 - 1.02 mg/dL AO ADM SS Electrolyte Balance 8.0 mEq/L Invalid Interpretation Code 4.0 - 15.0 mEq/L AO ADM SS Glucose [Mass/Vol] 116 mg/dL Invalid Interpretation Code 83 - 110 mg/dL AO ADM SS Potassium [Moles/Vol] 3.8 mmol/L Invalid Interpretation Code 3.5 - 5.1 mmol/L AO ADM SS Sodium [Moles/Vol] 142 mmol/L Invalid Interpretation Code 136 - 145 mmol/L AO ADM SS Urea nitrogen [Mass/Vol] 24 mg/dL Invalid Interpretation Code 7 - 18 mg/dL AO ADM SS Urea nitrogen/Creatinine [Mass ratio] 23 ratio Invalid Interpretation Code 7 - 27 ratio AO ADM SS LABORATORYOrdered By: SYSTEM SYSTEM on 12-25-2021 GFR 60 ml/min/1.73sqm Invalid Interpretation Code AO Chemistry S GFR Non- 50 ml/min/1.73sqm Invalid Interpretation Code AO Chemistry S LABORATORYOrdered By: Rehana Arevalo on 12-06-2021 FLUAV RNA FAY+probe Ql (Resp) Negative 5 (12/06/21 12:07 PM) Invalid Interpretation Code Negative AH Auto Viro/Sero SS Comment on above: Result Comment: Note s FLUBV RNA FAY+probe Ql (Resp) Negative 6 (12/06/21 12:07 PM) Invalid Interpretation Code Negative AH Auto Viro/Sero SS Comment on above: Result Comment: Note s RSV PCR Negative 7 (12/06/21 12:07 PM) Invalid Interpretation Code Negative AH Auto Viro/Sero SS Comment on above: Result Comment: Note s SARS-CoV-2 (COVID-19) RNA FAY+probe Ql (Resp) Negative 4 (12/06/21 12:07 PM) Invalid Interpretation Code Negative AH Auto Viro/Sero SS Comment on above: Result Comment: Note s LABORATORYOrdered By: Elda Reed on 12-04-2021 Appearance (U) Clear (12/04/21 3:30 PM) Invalid Interpretation Code Clear AH Auto Urine SS Bilirubin Ql (U) Negative (12/04/21 3:30 PM) Invalid Interpretation Code Neg-Trace AH Auto Urine SS Color (U) Yellow (12/04/21 3:30 PM) Invalid Interpretation Code AH Auto Urine SS Glucose Test strip (U) [Mass/Vol] Negative Invalid Interpretation Code Negativemg/ dL AH Auto Urine SS Hemoglobin Auto test strip (U) [Mass/Vol] Negative (12/04/21 3:30 PM) Invalid Interpretation Code Neg-Trace AH Auto Urine SS Ketones Ql (U) Negative Invalid Interpretation Code Neg-Tracemg /dL AH Auto Urine SS UA Leuk Est Trace (12/04/21 3:30 PM) Invalid Interpretation Code Negative AH Auto Urine SS UA Nitrite Negative (12/04/21 3:30 PM) Invalid Interpretation Code Negative AH Auto Urine SS UA pH 6.5 (12/04/21 3:30 PM) Invalid Interpretation Code 5.0 - 8.0 AH Auto Urine SS UA Protein Negative Invalid Interpretation Code Negativemg/ dL AH Auto Urine SS UA Spec Grav <=1.005 *ABN* (12/04/21 3:30 PM) Invalid Interpretation Code 1.006-1.029 AH Auto Urine SS UA Specimen Type Clean Catch (12/04/21 3:30 PM) Invalid Interpretation Code AH Auto Urine SS UA Urobilinogen 0.2 E.U./dL Invalid Interpretation Code 0.2-1.0E.U. /dL AH Auto Urine SS LABORATORYOrdered By: SYSTEM SYSTEM on 12-04-2021 Albumin BCP dye [Mass/Vol] 3.8 G/dL Invalid Interpretation Code 3.2 - 4.8 G/dL AH ADM SS Albumin/Globulin [Mass ratio] 1.4 {ratio} Invalid Interpretation Code 0.9 - 1.6 ratio AH ADM SS ALP [Catalytic activity/Vol] 66 U/L Invalid Interpretation Code 38 - 126 U/L AH ADM SS ALT No additional P-5'-P [Catalytic activity/Vol] 12 U/L Invalid Interpretation Code 10 - 49 U/L AH ADM SS AST [Catalytic activity/Vol] 17 U/L Invalid Interpretation Code 8 - 34 U/L AH ADM SS Basophils (Bld) [#/Vol] 0.0 103/mcL Invalid Interpretation Code 0.0 - 0.3 10^3/mcL AH Workflow SS Basophils/100 WBC (Bld) 0.6 % Invalid Interpretation Code 0.0 - 2.5 % AH Workflow SS Bilirubin [Mass/Vol] 0.70 mg/dL Invalid Interpretation Code 0.20 - 1.20 mg/dL ADM SS Calcium [Mass/Vol] 10.1 mg/dL Invalid Interpretation Code 8.7 - 10.4 mg/dL ADM SS Chloride [Moles/Vol] 104 mmol/L Invalid Interpretation Code 98 - 110 mEq/L ADM SS CO2 [Moles/Vol] 26 mmol/L Invalid Interpretation Code 22 - 32 mEq/L ADM SS Creatinine [Mass/Vol] 0.83 mg/dL Invalid Interpretation Code 0.50 - 1.20 mg/dL ADM SS Electrolyte Balance 8.0 mEq/L Invalid Interpretation Code 4.0 - 15.0 mEq/L ADM SS Eosinophils (Bld) [#/Vol] 0.1 103/mcL Invalid Interpretation Code 0.0 - 0.7 10^3/mcL Workflow SS Eosinophils/100 WBC (Bld) 0.7 % Invalid Interpretation Code 0.0 - 6.0 % Workflow SS Erythrocyte distribution width (RBC) [Ratio] 14.3 % Invalid Interpretation Code 11.5 - 15.5 % Workflow SS GFR/1.73 sq M.predicted among blacks MDRD (S/P/Bld) [Vol rate/Area] ml/min/1.73sqm Invalid Interpretation Code Chemistry S GFR/1.73 sq M.predicted among non-blacks MDRD (S/P/Bld) [Vol rate/Area] ml/min/1.73sqm Invalid Interpretation Code Chemistry S Globulin 2.7 G/dL Invalid Interpretation Code 1.5 - 3.8 G/dL ADM SS Glucose [Mass/Vol] 139 mg/dL Invalid Interpretation Code 82 - 115 mg/dL ADM SS Hematocrit (Bld) [Volume fraction] 31.2 % Invalid Interpretation Code 34.0 - 46.0 % Workflow SS Hemoglobin (Bld) [Mass/Vol] 10.7 G/dL Invalid Interpretation Code 12.0 - 16.0 G/dL Workflow SS Lymphocytes (Bld) [#/Vol] 1.0 103/mcL Invalid Interpretation Code 0.9 - 4.3 10^3/mcL AH Workflow SS Lymphocytes/100 WBC (Bld) 12.5 % Invalid Interpretation Code 20.0 - 40.0 % Workflow SS Magnesium [Mass/Vol] 1.7 mg/dL Invalid Interpretation Code 1.6 - 2.4 mg/dL ADM SS MCH (RBC) [Entitic mass] 28.1 pg Invalid Interpretation Code 27.0 - 33.0 pg AH Workflow SS MCHC 34.1 G/dL Invalid Interpretation Code 32.0 - 36.0 G/dL AH Workflow SS MCV (RBC) [Entitic vol] 82.2 fL Invalid Interpretation Code 80.0 - 99.0 fL AH Workflow SS Monocytes (Bld) [#/Vol] 0.5 103/mcL Invalid Interpretation Code 0.1 - 1.4 10^3/mcL AH Workflow SS Monocytes/100 WBC (Bld) 6.0 % Invalid Interpretation Code 2.0 - 13.0 % AH Workflow SS Neutrophils (Bld) [#/Vol] 6.7 103/mcL Invalid Interpretation Code 2.3 - 8.1 10^3/mcL AH Workflow SS Neutrophils/100 WBC (Bld) 80.2 % Invalid Interpretation Code 50.0 - 75.0 % AH Workflow SS Platelet mean volume (Bld) [Entitic vol] 8.0 fL Invalid Interpretation Code 6.6 - 10.5 fL AH Workflow SS Platelets (Bld) [#/Vol] 251 103/mcL Invalid Interpretation Code 150 - 450 10^3/mcL AH Workflow SS Potassium [Moles/Vol] 3.6 mmol/L Invalid Interpretation Code 3.5 - 5.0 mEq/L ADM SS Protein [Mass/Vol] 6.5 G/dL Invalid Interpretation Code 5.7 - 8.2 G/dL ADM SS RBC (Bld) [#/Vol] 3.80 106/mcL Invalid Interpretation Code 4.10 - 5.30 10^6/mcL AH Workflow SS Sodium [Moles/Vol] 138 mmol/L Invalid Interpretation Code 136 - 145 mEq/L ADM SS Troponin I.cardiac DL <= 0.01 ng/mL [Mass/Vol] 8.59 ng/L Invalid Interpretation Code 0.00 - 34.00 ng/L ADM SS TSH Qn 1.469 mIU/mL Invalid Interpretation Code 0.550 - 4.780 mIU/mL ADM SS Urea nitrogen [Mass/Vol] 25.0 mg/dL Invalid Interpretation Code 8.0 - 22.0 mg/dL ADM SS Urea nitrogen/Creatinine [Mass ratio] 30.1 ratio Invalid Interpretation Code 10.0 - 22.0 ratio AH ADM SS WBC (Bld) [#/Vol] 8.3 103/mcL Invalid Interpretation Code 4.5 - 10.8 10^3/mcL AH Workflow SS No Panel Informationon 12-04 Culture Urine No growth to date [facility] Microscopic examination of blood, culture Culture has been received in lab and is no growth to date. Routine cultures are held for 5 days. [facility] LABORATORYOrdered By: Rick Webber on 12-03-2021 Appearance (U) Clear (12/03/21 4:12 PM) Invalid Interpretation Code Clear AM Telcor Subsection Bilirubin Ql (U) Negative (12/03/21 4:12 PM) Invalid Interpretation Code Neg-Trace AM Telcor Subsection Color (U) Light yellow Invalid Interpretation Code AM Telcor Subsection Glucose Test strip (U) [Mass/Vol] Negative Invalid Interpretation Code Negativemg/ dL AM Telcor Subsection Hemoglobin Ql (U) Negative (12/03/21 4:12 PM) Invalid Interpretation Code Neg-Trace AM Telcor Subsection Ketones (U) [Mass/Vol] Negative Invalid Interpretation Code Neg-Tracemg /dL AM Telcor Subsection Leukocyte esterase Test strip Ql (U) Negative (12/03/21 4:12 PM) Invalid Interpretation Code Neg-Trace AM Telcor Subsection Nitrite Ql (U) Negative (12/03/21 4:12 PM) Invalid Interpretation Code Negative AM Telcor Subsection Performing Instrument - POCT CLINITEK Invalid Interpretation Code AM Telcor Subsection pH (U) 6.0 (12/03/21 4:12 PM) Invalid Interpretation Code 5.0 - 8.0 AM Telcor Subsection Protein (U) [Mass/Vol] Negative Invalid Interpretation Code Neg-30mg/dL AM Telcor Subsection Specific gravity (U) [Rel density] <=1.005 *ABN* (12/03/21 4:12 PM) Invalid Interpretation Code 1.006-1.029 AM Telcor Subsection Urobilinogen Qn (U) [id number] {Sara'U}/dL Invalid Interpretation Code 0.2-1.0E.U. /dL AM Telcor Subsection Performing Instrument - POCT TRIAGE1 Invalid Interpretation Code AM Telcor Subsection Troponin I.cardiac [Mass/Vol] ng/mL Invalid Interpretation Code <=0.05ng/mL AM Telcor Subsection BUN/Creatinine Ratio (POC) 41.6 ratio Invalid Interpretation Code 10.0 - 22.0 ratio AM Telcor Subsection Calcium Level Ionized (POC) 1.29 mmol/L Invalid Interpretation Code 1.12 - 1.32 mmol/L AM Telcor Subsection Chloride [Moles/Vol] 108 mmol/L Invalid Interpretation Code 98 - 110 mEq/L AM Telcor Subsection CO2 [Moles/Vol] 26 mmol/L Invalid Interpretation Code 22 - 32 mEq/L AM Telcor Subsection Creatinine [Mass/Vol] 0.76 mg/dL Invalid Interpretation Code 0.50 - 1.20 mg/dL AM Telcor Subsection Electrolyte Balance (POC) 9.0 mEq/L Invalid Interpretation Code 4.0 - 15.0 mEq/L AM Telcor Subsection Est GFR (POC) ml/min/1.73sqm Invalid Interpretation Code AM Telcor Subsection Est GFR Non- (POC) ml/min/1.73sqm Invalid Interpretation Code AM Telcor Subsection Glucose [Mass/Vol] 148 mg/dL Invalid Interpretation Code 82 - 115 mg/dL AM Telcor Subsection Performing Instrument - POCT EPOC1 Invalid Interpretation Code AM Telcor Subsection Potassium [Moles/Vol] 3.6 mmol/L Invalid Interpretation Code 3.5 - 5.0 mEq/L AM Telcor Subsection Sodium [Moles/Vol] 142 mmol/L Invalid Interpretation Code 136 - 145 mEq/L AM Telcor Subsection Urea nitrogen [Mass/Vol] 32.0 mg/dL Invalid Interpretation Code 8.0 - 22.0 mg/dL AM Telcor Subsection Basophils (Bld) [#/Vol] 0.05 103/mcL Invalid Interpretation Code 0.00 - 0.27 10^3/mcL AM Telcor Subsection Basophils/100 WBC (Bld) 0.4 % Invalid Interpretation Code 0.0 - 2.5 % AM Telcor Subsection Eosinophils (Bld) [#/Vol] 0.07 103/mcL Invalid Interpretation Code 0.00 - 0.65 10^3/mcL AM Telcor Subsection Eosinophils/100 WBC (Bld) 0.6 % Invalid Interpretation Code 0.0 - 6.0 % AM Telcor Subsection Erythrocyte distribution width (RBC) [Ratio] 13.7 % Invalid Interpretation Code 11.5 - 15.5 % AM Telcor Subsection Hematocrit (Bld) [Volume fraction] 31.0 % Invalid Interpretation Code 34.0 - 46.0 % AM Telcor Subsection Hemoglobin (Bld) [Mass/Vol] 10.0 G/dL Invalid Interpretation Code 12.0 - 16.0 G/dL AM Telcor Subsection Immature granulocytes (Bld) [#/Vol] 0.03 103/mcL Invalid Interpretation Code AM Telcor Subsection Immature granulocytes/100 WBC (Bld) 0.3 % Invalid Interpretation Code AM Telcor Subsection Lymphocytes (Bld) [#/Vol] 1.44 103/mcL Invalid Interpretation Code 0.90 - 4.32 10^3/mcL AM Telcor Subsection Lymphocytes/100 WBC (Bld) 12.6 % Invalid Interpretation Code 20.0 - 40.0 % AM Telcor Subsection MCH (RBC) [Entitic mass] 27.7 pg Invalid Interpretation Code 27.0 - 33.0 pg AM Telcor Subsection MCHC (RBC) [Mass/Vol] 32.3 G/dL Invalid Interpretation Code 32.0 - 36.0 G/dL AM Telcor Subsection MCV (RBC) [Entitic vol] 85.9 fL Invalid Interpretation Code 80.0 - 99.0 fL AM Telcor Subsection Monocytes (Bld) [#/Vol] 0.53 103/mcL Invalid Interpretation Code 0.09 - 1.40 10^3/mcL AM Telcor Subsection Monocytes/100 WBC (Bld) 4.6 % Invalid Interpretation Code 2.0 - 13.0 % AM Telcor Subsection Neutrophils (Bld) [#/Vol] 9.30 103/mcL Invalid Interpretation Code 2.25 - 8.10 10^3/mcL AM Telcor Subsection Neutrophils/100 WBC (Bld) 81.5 % Invalid Interpretation Code 50.0 - 75.0 % AM Telcor Subsection Platelet mean volume (Bld) [Entitic vol] 9.4 fL Invalid Interpretation Code 6.6 - 10.5 fL AM Telcor Subsection Platelets (Bld) [#/Vol] 225 103/mcL Invalid Interpretation Code 150 - 450 10^3/mcL AM Telcor Subsection RBC (Bld) [#/Vol] 3.61 106/mcL Invalid Interpretation Code 4.50 - 6.00 10^6/mcL AM Telcor Subsection WBC (Bld) [#/Vol] 11.42 103/mcL Invalid Interpretation Code 4.50 - 10.80 10^3/mcL AM Telcor Subsection LABORATORYOrdered By: SYSTEM SYSTEM on 12-03-2021 Perf Loc - POCT Tested at AM Invalid Interpretation Code AM Telcor Subsection Comment on above: Result Comment: Ales[address] [place], [place] [address] Perf Loc - POCT Tested at AM Invalid Interpretation Code AM Telcor Subsection Comment on above: Result Comment: [address] [place], [place] [address] Perf Loc - POCT Tested at AM Invalid Interpretation Code AM Telcor Subsection Comment on above: Result Comment: Ales[address] [place], [place] [address] MRI BREAST WO/W IVCON [facility]IL[place] 03-01-2018 MRI BREAST WO/W IVCON [facility] * * *Final Report* * * DATE OF EXAM: Mar 01 2018 11:54AM [facility] [id number] - MRI BREAST WO/W IVCON [place] / PROCEDURE REASON: N64.4-Mastodynia * * * * Physician Interpretation * * * * #[id number] - MRI BREAST WO/W IVCON [place] BREAST MRI OF BOTH BREASTS: 03/01/2018 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 Short interval follow up of the lumpectomy site recommended per the prior MRI dated 05/18/2017. RESULT: Comparison is made to exam dated: 05/18/2017 breast MRI - [facility]. Interpretation of this MRI was correlated with available mammograms. Informed consent was obtained from the patient. MRI images were obtained at 1 mm intervals with a dedicated breast MRI. Pre and post contrast images were obtained at 1 minute intervals for 6 minutes. The patient was studied using the [employer]in[employer] dedicated breast coil in the Siemens 1.5 Julia scanner. Initial axial STIR imaging was carried out followed by axial T1-weighted GRE imaging both before and after IV administration of 19 ml of Dotarem. Subsequently, subtraction imaging and 3-D reconstruction were completed on an independent workstation. An additional 4 minute high resolution sequence was performed after the first two 1 minute post-contrast sequences. FINDINGS: There is mild background parenchymal enhancement. Right Breast: There are no new suspicious enhancing masses or areas of nonmass enhancement. The imaged right axilla is unremarkable. Left Breast: There is a lumpectomy cavity in the upper outer quadrant. There is diffuse skin thickening with is consistent with postradiation change. The lumpectomy cavity has contracted and is slightly smaller compared to prior MRI. Previously described peripheral nodular enhancement has resolved. There is smooth contiguous enhancement along the periphery of the lumpectomy which is in keeping with expected postsurgical change. There are no new suspicious focal findings in the left breast. Postsurgical findings in the left axilla are consistent with axillary sampling. IMPRESSION: BENIGN FINDING - Postlumpectomy and postradiation findings in the left breast which are felt to be within the limits of normal. Previously described enhancement of the lumpectomy cavity has decreased, in keeping with the expected imaging evolution of postsurgical change. There are no new suspicious focal findings in the left breast. - No new suspicious enhancing findings in the right breast. Follow-up with ACR/NCCN guidelines. Td carlson/rafael:03/01/2018 14:15:08 Warehouse Selector(s): RT Amanda(N)(MR), [facility] MRI BI-RADS: 2 Benign finding Multiple national specialty organizations have released breast cancer screening guidelines for women at average risk for developing breast cancer - guidelines that are based on both evidence and opinion, yet differ on when to start and how often to screen for breast cancer. With representation from Breast Imaging, Internal Medicine, Women's Health, Family Medicine, and Medical/Surgical Oncology, the [facility] has carefully reviewed the data and reached the following consensus: 1) All women should engage in shared decision-making with their providers to decide when to start and how often to screen; 2) All women should have the opportunity to start screening mammography at age 40; 3) For women ages 45-55, we recommend annual screening mammograms; 4) For women ages 55 and over, we support both the transition from an annual to a biennial interval if this aligns more with patient's values and preferences, or continuation with annual screening; 5) All women should discuss with their providers when to stop screening mammograms. Track Laminating Machine Tender: Penrad Transcribe Date/Time: Mar 01 2018 11:37A Dictated by : TD SANDERS MD This examination was interpreted and the report reviewed and electronically signed by: TD SANDERS MD on Mar 01 2018 2:15PM EST [id number] [facility] NURSING PROGon 03-01-2018 Protein mass conc HNO ID: [id number] Author: Carla Love (Rn) Kristopher Service: Radiology Author Type: Registered Nurse Type: Nursing Progress Note Filed: 03/01/2018 10:51 AM Note Text: Radiology Service Progress Note PATIENT NAME: Ct Dalton DATE OF SERVICE: March 01, 2018 TIME: 10:49 AM PATIENT IDENTITY VERIFICATION COMPLETED USING TWO (2) METHODS: Patient confirmed name verbally and ID band matches.. PATIENT GENDER DATA: Female. status: : No status: NO. ALLERGIES: Reviewed and unchanged CONTRAST ALLERGY: NO. IV SITE: Ambulatory: A peripheral IV was started in the Right AC with a Angio cath: 22 gauge. Blood return present and flushed with 10cc normal saline without difficulty. IV SITE APPEARANCE: Clean,Dry and Intact SIGNED BY: Carla Summers RN March 01, 2018 10:49 AM [facility] Clinical Summary: HMSPatient IDon 01-17-2018 OOP Invalid Interpretation Code [facility] Work Phone: Office Visit: Follow-up by sasha servin, Rm: PT2on 01-17-2018 NEGATED: Highlighted rowMRI (magnetic resonance imaging) history of the lumbar spine on 10/20/2013 at [place] Invalid Interpretation Code [facility] Work Phone: NEGATED: Highlighted rowProtein mass conc Done Invalid Interpretation Code [facility] Work Phone: MRI BREAST WO/W IVCON BILon 05-18-2017 MRI BREAST WO/W IVCON DUNCAN * * *Final Report* * * DATE OF EXAM: May 18 2017 2:32PM [facility] [id number] - MRI BREAST WO/W IVCON DUNCAN / PROCEDURE REASON: Z13.89-Encounter for screening for other disorder * * * * Physician Interpretation * * * * #[id number] - MRI BREAST WO/W IVCON DUNCAN BREAST MRI OF BOTH BREASTS : 05/18/2017 HISTORY: Z13.89-Encounter For Screening For Other Disorder; 76 year old female with history of Stage I, T1cN0, invasive lobular carcinoma of the left breast s/p lumpectomy and sentinel node biopsy. RESULT: Comparison is made to exams dated: 03/23/2017 mammogram and 03/25/2017 ultrasound. Interpretation of this MRI was correlated with available mammograms and ultrasounds. MRI images were obtained with a dedicated breast MRI. The patient was studied using the Sentinelle dedicated breast coil in the Siemens 1.5 Julia scanner. Initial axial STIR imaging was carried out followed by axial T1-weighted GRE imaging both before and after IV administration of 18 ml of Dotarem. Subsequently, subtraction imaging and 3-D reconstruction were completed on an independent workstation. An additional 4 minute high resolution sequence was performed after the first two 1 minute post-contrast sequences. 3D image post-processing was performed on an independent workstation with attending physician supervision including creation of quantitative dynamic contrast uptake subtraction images and multiplanar reconstruction (MPR). FINDINGS: RIGHT BREAST: There is mild background parenchymal enhancement. No suspicious enhancement or suspicious mass is identified. There is no internal mammary or axillary lymphadenopathy. LEFT BREAST: There is mild background parenchymal enhancement. Postoperative changes of left lumpectomy with sentinel lymph node biopsy. The lumpectomy cavity occupies a large portion of the left central and upper outer breast. There are surrounding post-surgical changes as well as mild skin thinkening which is felt to be post-surgical in nature. There is non-mass enhancement along the medial border of the lumpectomy cavity (AGFA series 10, image 93). There is an additional area of non-mass enhancement along the lateral border of the lumpectomy cavity (AGFA series 10, image 82). Given that the MRI was performed close to the surgical procedure it is difficult to determine whether these areas represent residual disease vs post-operative changes. No additional suspicious enhancement or suspicious mass is identified. There is no internal mammary or axillary lymphadenopathy. IMPRESSION: PROBABLY BENIGN - SHORT TERM INTERVAL FOLLOW-UP RECOMMENDED 1. Left breast lumpectomy and sentinel lymph node biopsy changes are identified as described. Along the medial and lateral borders of the lumpectomy cavity there are areas of non-mass enhancement, as described. Given that the MRI was performed close to the surgical procedure it is difficult to determine whether these areas represent residual disease vs post-operative changes. A 6 month follow-up MRI is recommended for further evaluation. 2. No MRI evidence of malignancy involving the right breast. 3. No axillary or internal mammary adenopathy. A follow-up breast MRI in 6 months is recommended to demonstrate stability. The exam was reviewed by a staff physician. Cricket page,bb/rafael:05/18/2017 15:28:32 Warehouse Selector: Cally SPEARS (R)(Jeanine), [facility] MRI BI-RADS: 3 Probably benign finding - short term interval follow-up recommended Track Laminating Machine Tender: Rafael Transcribe Date/Time: May 18 2017 2:15P Dictated by : MALLIKA PAYNE MD This examination was interpreted and the report reviewed and electronically signed by: CRICKET AMBRIZ MD on May 18 2017 3:28PM EST [id number] [facility] NURSING PROGon 05-18-2017 Protein mass conc HNO ID: [id number] Author: Ema (Rn) DONA Bai Service: PICC Team Author Type: Registered Nurse Type: Nursing Progress Note Filed: 05/18/2017 1:28 PM Note Text: PICC/VASCULAR ACCESS PROGRESS NOTE SERVICE DATE: 05/18/2017 SERVICE TIME: 1320 Consulted for difficult IV access 22 g placed in R hand positive blood return flushed with 10cc normal saline SIGNATURE: Ema Bai RN PATIENT NAME: Ct Dalton DATE: May 18, 2017 TIME: 1:27 PM PAGER/CONTACT #: [id number] [facility] Vital Signs Date Time Vital Sign Value Performing Clinician Facility 02-10-2024 15:30-0500 Body temperature 97.52 [degF] ELDA DEL ROSARIO APRN-NATURAL RESOURCE ECONOMIST [facility] 02-10-2024 15:30-0500 Diastolic Blood Pressure Non-Invasive 72 mm[Hg] ELDA DEL ROSARIO APRN-NATURAL RESOURCE ECONOMIST [facility] 02-10-2024 15:30-0500 Heart rate 84 /min ELDA DEL ROSARIO RADIAGRAPH OPERATOR-NATURAL RESOURCE ECONOMIST [facility] 02-10-2024 15:30-0500 Reason For Taking VItal Signs ELDA DEL ROSARIO RADIAGRAPH OPERATOR-NATURAL RESOURCE ECONOMIST [facility] 02-10-2024 15:30-0500 Respiratory rate 16 /min ELDA DEL ROSARIO RADIAGRAPH OPERATOR-NATURAL RESOURCE ECONOMIST [facility] 02-10-2024 15:30-0500 Systolic Blood Pressure Non-Invasive 146 mm[Hg] ELDA BUCKNERFF RADIAGRAPH OPERATOR-NATURAL RESOURCE ECONOMIST [facility] 02-10-2024 06:37-0500 Body temperature 97.34 [degF] ELDA BUCKNERFF RADIAGRAPH OPERATOR-NATURAL RESOURCE ECONOMIST [facility] 02-10-2024 06:37-0500 Diastolic Blood Pressure Non-Invasive 82 mm[Hg] ELDA BUCKNERFF RADIAGRAPH OPERATOR-NATURAL RESOURCE ECONOMIST [facility] 02-10-2024 06:37-0500 Heart rate 80 /min ELDA DEL ROSARIO RADIAGRAPH OPERATOR-NATURAL RESOURCE ECONOMIST [facility] 02-10-2024 06:37-0500 Reason For Taking VItal Signs ELDA DEL ROSARIO RADIAGRAPH OPERATOR-NATURAL RESOURCE ECONOMIST [facility] 02-10-2024 06:37-0500 Respiratory rate 14 /min ELDA DEL ROSARIO RADIAGRAPH OPERATOR-NATURAL RESOURCE ECONOMIST [facility] 02-10-2024 06:37-0500 Systolic Blood Pressure Non-Invasive 148 mm[Hg] ELDA OBREGONRUFF RADIAGRAPH OPERATOR-NATURAL RESOURCE ECONOMIST [facility] 02-10-2024 03:22-0500 Body temperature 97.52 [degF] ELDA OBREGONRUFF RADIAGRAPH OPERATOR-NATURAL RESOURCE ECONOMIST [facility] 02-10-2024 03:22-0500 Diastolic Blood Pressure Non-Invasive 81 mm[Hg] ELDA DEL ROSARIO RADIAGRAPH OPERATOR-NATURAL RESOURCE ECONOMIST [facility] 02-10-2024 03:22-0500 Heart rate 81 /min ELDA DEL ROSARIO RADIAGRAPH OPERATOR-NATURAL RESOURCE ECONOMIST [facility] 02-10-2024 03:22-0500 Reason For Taking VItal Signs ELDA DEL ROSARIO RADIAGRAPH OPERATOR-NATURAL RESOURCE ECONOMIST [facility] 02-10-2024 03:22-0500 Respiratory rate 14 /min ELDA DEL ROSARIO RADIAGRAPH OPERATOR-NATURAL RESOURCE ECONOMIST [facility] 02-10-2024 03:22-0500 Systolic Blood Pressure Non-Invasive 156 mm[Hg] ELDA EDL ROSARIO RADIAGRAPH OPERATOR-NATURAL RESOURCE ECONOMIST [facility] 02-09-2024 22:01-0500 Heart rate 74 /min ELDA BUCKNERFF RADIAGRAPH OPERATOR-NATURAL RESOURCE ECONOMIST [facility] 02-09-2024 21:59-0500 Body height 152 cm ELDA DEL ROSARIO RADIAGRAPH OPERATOR-NATURAL RESOURCE ECONOMIST [facility] 02-09-2024 21:59-0500 Body weight 67 kg ELDA DEL ROSARIO RADIAGRAPH OPERATOR-NATURAL RESOURCE ECONOMIST [facility] 02-09-2024 21:59-0500 Body weight 29 kg/m2 ELDA DEL ROSARIO RADIAGRAPH OPERATOR-NATURAL RESOURCE ECONOMIST [facility] 02-09-2024 21:07-0500 Heart rate 78 /min LEDA BUCKNERFF RADIAGRAPH OPERATOR-NATURAL RESOURCE ECONOMIST [facility] 02-09-2024 21:07-0500 Mean blood pressure 90 mm[Hg] ELDA CARIN RADIAGRAPH OPERATOR-NATURAL RESOURCE ECONOMIST [facility] 02-09-2024 20:38-0500 Mean blood pressure 85 mm[Hg] ELDA DEL ROSARIO RADIAGRAPH OPERATOR-NATURAL RESOURCE ECONOMIST [facility] 02-09-2024 19:39-0500 Heart rate 83 /min ELDA DEL ROSARIO RADIAGRAPH OPERATOR-NATURAL RESOURCE ECONOMIST [facility] 01-21-2024 10:04-0500 Body height 160 cm INES DENNIS MD [facility] 01-21-2024 10:04-0500 Body temperature 97.52 [degF] INES DENNIS MD [facility] 01-21-2024 10:04-0500 Body weight 68.2 kg INES DENNIS MD [facility] 01-21-2024 10:04-0500 Diastolic Blood Pressure Non-Invasive 81 mm[Hg] INES DENNIS MD [facility] 01-21-2024 10:04-0500 Heart rate 85 /min INES DENNIS MD [facility] 01-21-2024 10:04-0500 Respiratory rate 18 /min INES DENNIS MD [facility] 01-21-2024 10:04-0500 Systolic Blood Pressure Non-Invasive 164 mm[Hg] INES DENNIS MD [facility] 12-09-2023 08:47-0400 Blood Pressure Location INES DENNIS MD [facility] 10-31-2024 08:47-0400 Blood Pressure Method INES DENNIS MD [facility] 12-09-2023 08:47-0400 Body temperature 98.24 [degF] INES DENNIS MD [facility] 12-09-2023 08:47-0400 Diastolic Blood Pressure Non-Invasive 91 mm[Hg] INES DENNIS MD [facility] 12-09-2023 08:47-0400 Heart rate 90 /min INES DENNIS MD [facility] 12-09-2023 08:47-0400 Respiratory rate 18 /min INES DENNIS MD [facility] 12-09-2023 08:47-0400 Systolic Blood Pressure Non-Invasive 161 mm[Hg] INES DENNIS MD [facility] 11-29-2023 12:26-0400 Diastolic Blood Pressure Non-Invasive 76 mm[Hg] SONNY STAHL DO [facility] 11-29-2023 12:26-0400 Heart rate 76 /min SONNY STAHL DO [facility] 11-29-2023 12:26-0400 Respiratory rate 18 /min SONNY STAHL DO [facility] 11-29-2023 12:26-0400 Systolic Blood Pressure Non-Invasive 164 mm[Hg] SONNY STAHL DO [facility] 11-29-2023 08:58-0400 Blood Pressure Cuff Size SONNY STAHL DO [facility] 11-29-2023 08:58-0400 Blood Pressure Location SONNY STAHL DO [facility] 11-29-2023 08:58-0400 Blood Pressure Method SONNY STAHL DO [facility] 11-29-2023 08:58-0400 Body height 155 cm SONNY STAHL DO [facility] 11-29-2023 08:58-0400 Body temperature 97.34 [degF] SONNY STAHL DO [facility] 11-29-2023 08:58-0400 Diastolic Blood Pressure Non-Invasive 83 mm[Hg] SONNY STAHL DO [facility] 11-29-2023 08:58-0400 Heart rate 84 /min SONNY STAHL DO [facility] 11-29-2023 08:58-0400 Respiratory rate 18 /min SONNY STAHL DO [facility] 11-29-2023 08:58-0400 Systolic Blood Pressure Non-Invasive 172 mm[Hg] SONNY STAHL DO [facility] 06-19-2022 12:01-0400 Blood Pressure Cuff Size DR ANISA GOMEZ MD [facility] 06-19-2022 12:01-[address] ANISA GOMEZ MD [facility] 06-19-2022 12:01-[address] ANISA GOMEZ MD [facility] 06-19-2022 12:01-0400 Body height [address] ANISA GOMEZ MD [facility] 06-19-2022 12:01-0400 Body temperature 97.7 [degF] DR ANISA GOMEZ MD [facility] 06-19-2022 12:01-0400 Body weight 76.[address] ANISA GOMEZ MD [facility] 06-19-2022 12:01-0400 Body weight 31.88 kg/m2 DR ANIAS GOMEZ MD [facility] 06-19-2022 12:01-0400 Diastolic Blood Pressure Non-Invasive [address] ANISA GOMEZ MD [facility] 06-19-2022 12:01-0400 Heart rate 86 /min DR ANISA GOMEZ MD [facility] 06-19-2022 12:01-0400 Systolic Blood Pressure Non-Invasive [address] ANISA GOMEZ MD [facility] 04-06-2022 09:47-0500 Body height 157.5 cm Paula Alaniz MD Work Phone: [facility] 04-06-2022 09:47-0500 Body temperature 97.81 [degF] Paula Alaniz MD Work Phone: [facility] 04-06-2022 09:47-0500 Body weight 73.94 kg Paula Alaniz MD Work Phone: [facility] 04-06-2022 09:47-0500 Diastolic blood pressure 70 mm[Hg] Paula Alaniz MD Work Phone: [facility] 04-06-2022 09:47-0500 Heart rate 109 /min Paula Alaniz MD Work Phone: [facility] 04-06-2022 09:47-0500 SaO2% (BldA) [Mass fraction] 99 % Paula Alaniz MD Work Phone: [facility] 04-06-2022 09:47-0500 Systolic blood pressure 148 mm[Hg] Paula Alaniz MD Work Phone: [facility] 12-25-2021 16:18-0500 Diastolic Blood Pressure Non-Invasive 69 1 INES DENNIS MD [facility] 12-25-2021 16:18-0500 Systolic Blood Pressure Non-Invasive 189 1 INES DENNIS MD [facility] 12-25-2021 15:56-0500 Body height 157.5 cm INES DENNIS MD [facility] 12-25-2021 15:56-0500 Body temperature 96.44 [degF] INES DENNIS MD [facility] 12-25-2021 15:56-0500 Body weight 65.9 kg INES DENNIS MD [facility] 12-25-2021 15:56-0500 Diastolic Blood Pressure Non-Invasive 109 1 INES DENNIS MD [facility] 12-25-2021 15:56-0500 Heart rate 90 /min INES DENNIS MD [facility] 12-25-2021 15:56-0500 Respiratory rate 20 /min INES DENNIS MD [facility] 12-25-2021 15:56-0500 Systolic Blood Pressure Non-Invasive 202 1 INES DENNIS MD [facility] 12-06-2021 12:58-0400 Diastolic blood pressure 77 mm[Hg] DR KEVIN VIRGEN MD [facility] 12-06-2021 12:58-0400 Mean blood pressure 111 mm[Hg] DR KEVIN VIRGEN MD [facility] 12-06-2021 12:58-0400 Systolic blood pressure 180 mm[Hg] DR KEVIN VIRGEN MD [address] [place] [address] 12-06-2021 12:55-0400 Diastolic blood pressure 77 mm[Hg] DR KEVIN VIRGEN MD [address] [place] [address] 12-06-2021 12:55-0400 Heart rate 60 /min DR KEVIN VIRGEN MD [address] [place] [address] 12-06-2021 12:55-0400 Mean blood pressure 111 mm[Hg] DR KEVIN VIRGEN MD [address] 12-06-2021 12:55-0400 Reason For Taking VItal Signs DR KEVIN VIRGEN MD [address] 12-06-2021 12:55-0400 Respiratory rate 18 /min DR KEVIN VIRGEN MD [address] [place] [address] 12-06-2021 12:55-0400 Systolic blood pressure 180 mm[Hg] DR KEVIN VIRGEN MD [address] [place] [address] 12-06-2021 08:46-0400 Heart rate 78 /min DR KEVIN VIRGEN MD [address] 12-06-2021 08:30-0400 Body temperature 98.06 [degF] DR KEVIN VIRGEN MD [address] [place] [address] 12-06-2021 08:30-0400 Diastolic blood pressure 82 mm[Hg] DR KEVIN VIRGEN MD [address] [place] [address] 12-06-2021 08:30-0400 Heart rate 77 /min DR KEVIN VIRGEN MD [address] [place] [address] 12-06-2021 08:30-0400 Mean blood pressure 106 mm[Hg] DR KEVIN VIRGEN MD [address] [place] [address] 12-06-2021 08:30-0400 Reason For Taking VItal Signs DR KEVIN VIRGEN MD [address] [place] [address] 12-06-2021 08:30-0400 Respiratory rate 17 /min DR KEVIN VIRGEN MD [address] [place] [address] 12-06-2021 08:30-0400 Systolic blood pressure 155 mm[Hg] DR KEVIN VIRGEN MD [address] 12-06-2021 03:45-0400 Body temperature 97.88 [degF] DR KEIVN VIRGEN MD [address] 12-06-2021 03:45-0400 Reason For Taking VItal Signs DR KEVIN VIRGEN MD [address] 12-06-2021 03:45-0400 Respiratory rate 18 /min DR KEVIN VIRGEN MD [address] [place] [address] 12-05-2021 23:53-0400 Body temperature 98.06 [degF] DR KEVIN VIRGEN MD [address] 12-04-2021 15:33-0400 Heart rate 56 /min DR KEVIN VIRGEN MD [address] 12-04-2021 02:47-0400 Heart rate 55 /min DR KEVIN VIRGEN MD [address] [place] [address] 12-03-2021 23:44-0400 Heart rate 60 /min DR KEVIN VIRGEN MD [address] 12-03-2021 21:46-0400 Body height [address] KEVIN VIRGEN MD [address] [place] [address] 12-03-2021 21:46-0400 Body weight 83.[address] KEVIN VIRGEN MD [address] 12-03-2021 21:46-0400 Body weight 32.73 kg/m2 DR KEVIN VIRGEN MD [facility] 12-03-2021 21:30-0400 Heart rate 86 /min DR KEVIN VIRGEN MD [facility] 12-03-2021 14:26-0400 Body temperature 98.06 [degF] DR KEVIN VIRGEN MD [facility] 12-03-2021 14:26-0400 Body weight 83.[address] KEVIN VIRGEN MD [facility] NEGATED: Highlighted [id number] 10:24-0500 BMI (Body Mass Index) 37.26 kg/m2 Rigo Sitko AT [facility] Work Phone: NEGATED: Highlighted [id number] 10:24-0500 BP Diastolic 72 mm[Hg] Rigo Sitko AT [facility] Work Phone: NEGATED: Highlighted [id number] 10:24-0500 BP Diastolic 82 mm[Hg] Rigo Sitko AT [facility] Work Phone: NEGATED: Highlighted [id number] 10:24-0500 BP Systolic 154 mm[Hg] Rigo Sitko AT [facility] Work Phone: NEGATED: Highlighted [id number] 10:24-0500 BP Systolic 149 mm[Hg] Rigo Sitko AT [facility] Work Phone: NEGATED: Highlighted [id number] 10:24-0500 Height 157.48 cm Rigo Sitko AT [facility] Work Phone: NEGATED: Highlighted [id number] 10:24-0500 Height 157 cm Rigo Sitko AT [facility] Work Phone: NEGATED: Highlighted [id number] 10:24-0500 Pulse (Heart Rate) 60 /min Rigo Best AT [facility] Work Phone: NEGATED: Highlighted [id number] 10:24-0500 Weight 92.08 kg Rigo Best AT [facility] Work Phone: NEGATED: Highlighted [id number] 10:240500 Weight 92 kg Rigo Best AT [facility] Work Phone: Encounters Encounter Date Encounter Type Care Provider Facility Start: 06-26-2024 End: 06-26-2024 ambulatory Jairon TREVIÑO Facility:[facility] Start: 05-29-2024 End: 05-29-[address] Warner Leos MD Work Phone: [facility] Work Phone: Start: 05-29-2024 End: 05-29-2024 Departed Referred Jairon Ruvalcaba Start: 05-29-2024 Registered Referred Jairon Ruvalcaba Start: 05-29-2024 End: 05-29-2024 ambulatory Jairon TREVIÑO Facility:[facility] Start: 05-24-2024 End: 05-24-[address] Warner Leos MD Work Phone: [facility] Work Phone: Start: 05-24-2024 End: 05-24-2024 Departed Referred Jairon Ruvalcaba Start: 05-24-2024 Registered Referred Jairon Ruvalcaba Start: 05-24-2024 End: 05-24-2024 ambulatory Jairon TREVIÑO Facility:[facility] Start: 05-15-2024 End: 05-15-[address] Warner Leos MD Work Phone: [facility] Work Phone: Start: 05-15-2024 End: 05-15-2024 Departed Referred Jairon Ruvalcaba Start: 05-15-2024 Registered Referred Jairon Ruvalcaba Start: 05-15-2024 End: 05-15-2024 ambulatory Warner Leos Jr. Facility:[facility] Start: 05-01-2024 End: 05-01-[address] Warner Leos MD Work Phone: [facility] Work Phone: Start: 05-01-2024 End: 05-01-2024 Departed Referred Jairon Ruvalcaba Start: 05-01-2024 End: 05-01-2024 ambulatory Warner Leos Jr. Facility:[facility] Start: 04-26-2024 End: 04-26-2024 ambulatory Warner Leos Jr. Facility:[facility] Start: 04-26-2024 End: 04-26-2024 Patient encounter procedure Jane Barth [facility] Work Phone: Start: 04-11-2024 End: 04-11-2024 ambulatory Warner Leos Jr. Facility:[facility] Start: 04-11-2024 End: 04-11-[address] Jairon Medel MD -[facility][Note 3] Work Phone: Start: 04-03-2024 End: 04-03-2024 Patient encounter procedure Jane Barth [facility] Work Phone: Start: 04-03-2024 End: 04-03-2024 ambulatory Jane Barth NP Facility:[facility] Start: 04-03-2024 Registered Referred Jairon Ruvalcaba Start: 03-27-2024 ambulatory Warner Leos Jr. Facil ity:[facility] Start: 03-27-2024 Registered Referred Jairon Ruvalcaba Start: 02-29-2024 End: 02-29-2024 ambulatory Jairon Medel Facility:[facility] Start: 02-29-2024 End: 02-29-[address] Jairon Mdeel MD -[facility][Note 3] Work Phone: Start: 02-28-2024 End: 02-28-2024 Departed Referred Jairon Medel MD -[facility] Start: 02-28-2024 End: 02-28-2024 ambulatory Warner Leos Jr. 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-C -[facility][Note 3] Work Phone: Start: 02-11-2024 End: 02-23-[address] LARRY THOMAS DO Facility:[facility] Start: 02-09-2024 End: 02-10-2024 Emergency department patient visit ELDA CARIN RADIAGRAPH OPERATOR-NATURAL RESOURCE ECONOMIST Facility:[facility] Start: 02-09-2024 End: 02-10-2024 Observation ELDA CARIN RADIAGRAPH OPERATOR-NATURAL RESOURCE ECONOMIST [facility] Start: 01-21-2024 End: 01-21-2024 Emergency department patient visit INES DENNIS MD [facility] Start: 01-05-2024 End: 01-05-[address] LARRY THOMAS DO [facility] Start: 01-05-2024 End: 01-05-[address] LARRY THOMAS DO [facility] Start: 12-29-2023 End: 12-29-[address] LARRY THOMAS DO [facility] Start: 12-29-2023 End: 12-29-[address] LARRY THOMAS DO [facility] Start: 12-21-2023 End: 12-21-[address] LARRY THOMAS DO [facility] Start: 12-21-2023 End: 12-21-[address] LARRY THOMAS DO [facility] Start: 12-18-2023 End: 01-26-[address] LARRY THOMAS DO Facility:[facility] Start: 12-15-2023 End: 12-15-[address] LARRY THOMAS DO [facility] Start: 12-15-2023 End: 12-15-[address] LARRY THOMAS DO [facility] Start: 12-15-2023 End: 12-19-[address] LARRY THOMAS DO [facility] Start: 12-15-2023 End: 12-19-[address] LARRY THOMAS DO [facility] Start: 12-09-2023 End: 12-09-2023 Emergency department patient visit INES DENNIS MD [facility] Start: 11-29-2023 End: 11-29-2023 Emergency department patient visit SONNY STAHL DO [facility] Start: 07-08-2023 End: 07-09-[address] LARRY THOMAS DO Facility:[facility] Start: 07-08-2023 End: 07-08-[address] LARRY THOMAS DO [facility] Start: 04-14-2023 End: 04-15-2023 ambulatory MAHAD LORENZO MD Facility:[facility] Start: 04-14-2023 End: 04-14-2023 Patient encounter procedure MAHAD LORENZO MD [facility] Start: 04-09-2023 End: 05-06-[address] LARRY THOMAS DO Facility:[facility] Start: 04-09-2023 End: 02-14-[address] LARRY THOMAS DO Facility:[facility] Start: 04-07-2023 End: 04-08-[address] LARRY THOMAS DO Facility:[facility] Start: 04-07-2023 End: 04-07-2023 Patient encounter procedure MAHAD LORENZO MD [facility] Start: 03-10-2023 End: 03-11-[address] LARRY THOMAS DO Facility:[facility] Start: 12-14-2022 End: 12-15-[address] LARRY THOMAS DO Facility:[facility] Start: 2022 End: 11-09-[address] LARRY THOMAS DO Facility:[facility] Start: 2022 End: 11-09-2022 Coordination of care plan DR LARRY THOMAS DO [facility] Start: 09-16-2022 End: 09-17-[address] LARRY THOMAS DO Facility:[facility] Start: 07-16-2022 End: 07-17-[address] ANISA GOMEZ MD Facility:[facility] Start: 06-19-2022 End: 06-19-[address] ANISA GOMEZ MD [facility] Start: 06-03-2022 Telephone encounter Paula Yepez MD Work Phone: General Surgery Comment on above: Request for medical records Start: 04-15-2022 End: 04-15-[address] LARRY THOMAS DO [facility] Start: 04-14-2022 End: 04-14-[address] LARRY THOMAS DO [facility] Start: 04-06-2022 End: 04-07-2022 ambulatory PAULA ALANIZ Facility:[facility] Start: 04-06-2022 End: 04-06-2022 Patient encounter procedure Paula Alaniz MD Work Phone: General Surgery Comment on above: Abnormal ultrasound of breast; History of left breast cancer Start: 03-23-2022 End: 03-23-2022 Patient encounter procedure ALANNA WRIGHT DO [facility] Start: 03-09-2022 End: 03-09-[address] LARRY THOMAS DO [facility] Start: 02-23-2022 End: 02-23-2022 Patient encounter procedure ALANNA WRIGHT DO [facility] Start: 01-22-2022 End: 01-22-2022 Patient encounter procedure ALANNA WRIGHT DO [facility] Start: 12-25-2021 End: 12-25-2021 Emergency department patient visit INES DENNIS MD [facility] Start: 12-03-2021 End: 12-06-[address] KEVIN VIRGEN MD [facility] Start: 05-05-2021 End: 05-05-2021 Patient encounter procedure ALANNA WRIGHT DO [facility] Start: 12-11-2020 End: 12-11-2020 Patient encounter procedure SEAN POOLE MD [facility] Start: 03-01-2018 Patient encounter procedure PAULA ROA [facility] Start: 01-17-2018 End: 01-17-2018 Patient encounter procedure Carla Dye MD Work Phone: [facility] Work Phone: Start: 05-18-2017 [facility] Procedures Date Procedure Procedure Detail Performing Clinician Start: 04-03-2024 Measurement of renal function Dr. Warner Leos MD Work Phone: Comment on above: GFR Calc Start: 03-27-2024 Measurement of renal function Dr. Warner Leos MD Work Phone: Comment on above: GFR Calc Start: 02-28-2024 Measurement of renal function Dr. Warner Leos MD Work Phone: Comment on above: GFR Calc Start: 02-28-[address] Warner Leos MD Work Phone: Start: 02-28-2024 Vitamin D, 25-hydrox y measurement Dr. Warner Leos MD Work Phone: Comment on above: Vitamin D 25(OH) Sta tus Range Deficiency <20 ng/mL (50nmol/L) Insufficiency 20 - 30 ng/mL (50 - 75 nmol/L) Sufficiency 30 - 100 ng/mL (75 - 250 nmol/L) Toxicity >100 ng/mL (>250 nmol/L) Start: 01-17-2018 End: 01-17-2018 Blood pressure outside of normal parameters - follow-up not documented Carla Dye MD Work Phone: Start: 01-17-2018 End: 01-17-2018 BMI documented as above normal parameters - follow-up documented Carla Dye MD Work Phone: Start: 01-17-2018 End: 01-17-2018 Documentation of current medications Carla Dye MD Work Phone: Start: 01-17-2018 End: 01-17-2018 Pain assessment documented as positive - no follow-up/reason not given Carla Dye MD Work Phone: Start: 01-17-2018 End: 01-17-2018 Tobacco non-user Carla Dye MD Work Phone: Back structure, excl uding neck (body structure) SEAN POOLE MD Bone structure of ph alanx of thumb (body structure) DR ANISA GOMEZ MD Comment on above: left Hand structure (body structure) SEAN POOLE MD History of lumbar laminectomy DR ANISA GOMEZ MD Ligation of fallopian tube A ONEIL POOLE MD Lumpectomy of left breast DR KEVIN VIRGEN MD Plan of Treatment Date Care Activity Detail Author Start: 02-08-2022 ADVANCE DIRECTIVE DISCUSSION ADVANCE DIRECTIVE DISCUSSION [facility] Start: 02-08-2022 DEPRESSION ASSESSMENT DEPRESSION ASSESSMENT [facility] Start: 08-10-2021 COVID-19 VACCINE (5 - Booster for Moderna series) COVID-19 VACCINE (5 - Booster for Moderna series) [facility] Start: 01-17-2018 End: 01-17-2018 Appointment Appointment [facility] Work Phone: Start: 09-23-2003 BONE DENSITY BONE DENSITY [facility] Start: 09-23-2003 PNEUMOCOCCAL: 65+ (1 - PCV) PNEUMOCOCCAL: 65+ (1 - PCV) [facility] Start: 1988 SHINGRIX VACCINE (1 of 2) SHINGRIX VACCINE (1 of 2) [facility] Start: 09-23-1983 DIABETES SCREEN DIABETES SCREEN [facility] Start: 1957 Urine microalbumin profile DTAP,TDAP,TD (1 - Tdap) [facility] Immunizations Immunization Date Immunization Notes Care Provider Mariya guevara 12-27-2022 SARS-CoV-2 (COVID-19 ) [id number] MAHAD LORENZO MD [facility] 11-05-2022 zoster vaccine recombinant MAHAD LORENZO MD [facility] 10-03-2022 influenza virus vacc ine, unspecified formulation MAHAD LORENZO MD [facility] 09-15-2022 pneumococcal 20-lisa nt conjugate vaccine MAHAD LORENZO MD [facility] 01-10-2022 influenza virus vacc ine, unspecified formulation MAHAD LORENZO MD [facility] 06-15-2021 SARS-CoV-2 (COVID-19 ) mRNA-[id number] vaccine MAHAD LORENZO MD [facility] 12-12-2020 SARS-CoV-2 (COVID-19 ) mRNA-1277 vaccine MAHAD LORENZO MD [facility] Comment on above: Result Comment: 2022: [id number] 10-22-2020 influenza virus vacc ine, unspecified formulation MAHAD LORENZO MD [facility] 03-28-2020 COVID-19, mRNA, LNP- S, PF, 100 mcg/ 0.5 mL dose; Translations: [Moderna COVID-19 Vaccine] SEAN POOLE MD [facility] 02-29-2020 COVID-19, mRNA, LNP- S, PF, 100 mcg/ 0.5 mL dose; Translations: [Moderna COVID-19 Vaccine] SEAN POOLE MD [facility] 10-12-2019 influenza virus vacc ine, unspecified formulation SEAN POOLE MD [facility] Comment on above: Result Comment: phar liv administered 10-11-2019 influenza virus vacc ine, unspecified formulation MAHAD LORENZO MD [facility] 10-11-2019 pneumococcal conjuga te vaccine, 13 valabhijit POOLE MD [facility] 10-07-2018 influenza virus vacc ine, unspecified formulation SEAN POOLE MD [facility] 12-21-2017 influenza virus vacc ine, unspecified formulation SEAN POOLE MD [facility] 10-27-2016 influenza virus vacc ine, unspecified formulation SEAN POOLE MD [facility] 10-29-2015 influenza virus vacc ine, unspecified formulation SEAN POOLE MD [facility] 10-30-2014 influenza virus vacc ine, unspecified formulation SEAN POOLE MD [facility] 10-31-2013 influenza virus vacc ine, unspecified formulation SEAN POOLE MD [facility] 11-01-2012 influenza virus vacc ine, unspecified formulation SEAN POOLE MD [facility] 01-09-2005 pneumococcal polysaccharide vaccine, 23 valabhijit POOLE MD [facility] No information available. Rigo Best AT [facility] Work Phone: Payers Date Payer Category Payer Self-pay [id number] 2017 Private Health Insurance [id number] 2017 Unknown [id number] 2003 Medicare [id number] 2003 Medicare [id number] 1938 Unknown [id number] 2.16.840.1.166063.3.579.2. 1938 Unknown [id number] 2.16.840.1.308246.3.579.2. 1938 Unknown [id number] 2.16.840.1.773249.3.579.2. 1938 Unknown [id number] 2.16.840.1.949023.3.579.2. 1938 Unknown [id number] 2.16.840.1.265005.3.579.2. 1938 Unknown [id number] 2.16.840.1.501895.3.579.2. 1938 Unknown [id number] 2.16.840.1.535336.3.579.2.62 1938 Unknown [id number] 2.16.840.1.972548.3.579.2.62 1938 Unknown [id number] 2.16.840.1.738769.3.579.2.62 1938 Unknown [id number] 2.16.840.1.125796.3.579.2.62 1938 Unknown [id number] 2.16.840.1.614629.3.579.2.627 1938 Unknown [id number] 2.16.840.1.677833.3.579.2.62 1938 Unknown [id number] 2.16.840.1.270313.3.579.2.62 1938 Unknown [id number] 2.16.840.1.889726.3.579.2.62 1938 Unknown [id number] 2.16.840.1.544474.3.579.2.62 1938 Unknown [id number] 2..840.1.643133.3.579.2. 1938 Unknown [id number] 2..840.1.556540.3.579.2.62 Medicare MEDICARE PART A B [id number] Unknown [id number] 2.16.840.1.773844.3.579.2.462 Unknown [id number] 2.16840.1.115361.3.579.2.462 Unknown [id number] 2.16.840.1.583726.3.579.2.462 Unknown [id number] 2.16.840.1.780743.3.579.2.462 Unknown [id number] 2.16.840.1.044831.3.579.2.462 Unknown [id number] 2.16.840.1.875802.3.579.2.462 Unknown [id number] 2.16.840.1.441284.3.579.2.462 Unknown [id number] 2.16.840.1.730585.3.579.2.462 Unknown [id number] 2.16.840.1.507548.3.579.2.462 Unknown [id number] 2.16.840.1.238795.3.579.2.462 Unknown [id number] 2.16.840.1.215347.3.579.2.462 Unknown [id number] 2.16.840.1.782768.3.579.2.462 Unknown [id number] 2.16.840.1.146938.3.579.2.462 Social History Date Type Detail Facility Start: 01-17-2018 End: 01-17-2018 Assertion Unknown if ever smoked [facility] Work Phone: Start: 04-07-2019 End: 05-25-2024 Never smoked tobacco (finding) [facility] Sex Assigned At [facility] Start: 04-06-2022 Tobacco use and exposure Smokeless tobacco non-user [facility] Start: 04-06-2022 Alcohol intake 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 (finding) [facility] Start: 1940 Sex Assigned At Not on file C [facility] Start: 05-25-2013 End: 05-31-2024 Sex Female (finding) [facility] Start: 1940 Sex Assigned At Female W [facility] Medical Equipment Procedure Code Equipment Code Equipment Origin al Text Equipment Identifier Dates SEBASTIAN 3GRM HEMO STAT ABS FDA Start: 04-27-2017 SEBASTIAN 3GRM HEMO STAT ABS FDA Start: 04-27-2017 SEBASTIAN 3GRM HEMO STAT ABS FDA Start: 04-27-2017 SEBASTIAN 3GRM HEMO STAT ABS FDA Start: 04-27-2017 Functional Status Date Assessment Result Facility 02-10-2024 Functional Status Nurse Ena gray q2hrs Performed Other: 7AM - 4PM [facility] 02-10-2024 Functional Status Financial gaston gement, Home management, Laundry, Meal preparation, Personal ADL, Shopping [facility] 02-10-2024 Functional Status [facility] 02-10-2024 Functional Status Identified as high risk, Door open, Non-Slip footwear, Room check performed [facility] 02-10-2024 Functional Status Jerrell Garcia [facility] 02-10-2024 Functional Status Jerrell Garcia [facility] 02-10-2024 Functional Status Jerrell Garcia [facility] 02-09-2024 Functional Status Jerrell Garcia [facility] 01-21-2024 Functional Status Minimum assistance [facility] 01-21-2024 Functional Status Independent Jerrell Garcia [facility] 12-09-2023 Functional Status Minimum assistance [facility] 12-09-2023 Functional Status ID band on, Call device within reach, Bed in low position, Wheels locked, Upper/Half-Length side-rails up, Visitor at bedside, Safety level maintained [facility] 11-29-2023 Functional Status Up ad nazario [facility] 11-29-2023 Functional Status Standard Safet y ID band on, Call device within reach, Bed in low position, Wheels locked, Upper/Half-Length side-rails up, Visitor at bedside [facility] 06-19-2022 Functional Status Sensory Deficits None [facility] 12-25-2021 Functional Status Independent Jerrell Garcia [facility] 12-06-2021 Functional Status None Jerrell [facility] 12-06-2021 Functional Status Room check performed [facility] 12-06-2021 Functional Status Jerrell [facility] 12-06-2021 Functional Status Jerrell [facility] 12-05-2021 Functional Status Jerrell Garcia [facility] 12-05-2021 Functional Status Jerrell [facility] 12-05-2021 Functional Status Mod A 1 [facility]rell [facility] 12-04-2021 Functional Status Single level home [facility] 12-04-2021 Functional Status Jerrell [facility] 12-04-2021 Functional Status Jerrell [facility] 12-04-2021 Functional Status Jerrell [facility] 12-04-2021 Functional Status [facility] 12-04-2021 Functional Status SCD On/Re-appl ied bilateral knee high [facility] 12-03-2021 Functional Status Ambulation in Room [facility] Mental Status Date Assessment Result Facility 02-10-2024 Mental Status Not oriented to time, Forgetful, Follows simple commands [facility] 02-09-2024 Mental Status [facility] 02-09-2024 Mental Status [facility] 01-21-2024 Mental Status Orientation Not oriented to situation, Forgetful [facility] 01-21-2024 Mental Status [facility] 12-09-2023 Mental Status Orientation Oriented x 4 [facility] 12-09-2023 Mental Status [facility] 11-29-2023 Mental Status Orientation Oriented x 4 [facility] 11-29-2023 Mental Status [facility] 12-25-2021 Mental Status Orientation Oriented x 4 [facility] 12-06-2021 Mental Status Oriented x 4, Forgetful [facility] 12-06-2021 Mental Status [facility] 12-06-2021 Mental Status [facility] Clinical Notes 12-03-2021 to 02-10-2024 Note Date & Type Note Facility 02-10-2024 Hospital Discharg e instructions Patient Education 02/10/2024 15:03:52 Dementia, Yjtk-rq-Yyvc Dementia Dementia is a condition that affects the way the brain works. It often affects memory and thinking. There are many types of dementia. Some types get worse with time and cannot be reversed. Some types of dementia include: Alzheimer's disease. This is the most common type. Vascular dementia. This type may happen due to a stroke. Lewy body dementia. This type may happen to people who have Parkinson's disease. Frontotemporal dementia. This type is caused by damage to nerve cells in certain parts of the brain. Some people may have more than one type, and this is called mixed dementia. What are the causes? This condition is caused by damage to cells in the brain. Some causes that cannot be reversed include: Having a condition that affects the blood vessels of the brain, such as diabetes, heart disease, or blood vessel disease. Changes to genes. Some causes that can be reversed or slowed include: Injury to the brain. Certain medicines. Infection. Not having enough vitamin B12 in the body, or thyroid problems. A tumor or blood clot in the brain. What are the signs or symptoms? Symptoms depend on the type of dementia. This may include: Problems remembering things. Having trouble taking a bath or putting clothes on. Forgetting appointments. Forgetting to pay bills. Trouble planning and making meals. Having trouble speaking. Getting lost easily. How is this treated? Treatment depends on the cause of the dementia. It might include taking medicines that help: To control the dementia. To slow down the dementia. To manage symptoms. In some cases, treating the cause of your dementia can improve symptoms, reverse symptoms, or slow down how quickly it gets worse. Your doctor can help you find support groups and other doctors who can help with your care. Follow these instructions at home: Medicines Take tlev-ift-ugubwrr and prescription medicines only as told by your doctor. Use a pill organizer to help you manage your medicines. Avoidtaking medicines for pain or for sleep. Lifestyle Make healthy choices: ?Be active as told by your doctor. ?Do not use any products that contain nicotine or tobacco, such as cigarettes, e-cigarettes, and chewing tobacco. If you need help quitting, ask your doctor. ?Do not drink alcohol. ?When you get stressed, do something that will help you to relax. Your doctor can give you tips. ?Spend time with other people. Make sure you get good sleep. To get good sleep: ?Try not to take naps during the day. ?Keep your bedroom dark and cool. ?In the few hours before you go to bed, try not to do any exercise. ?Do not have foods and drinks with caffeine at night. Eating and drinking Drink enough fluid to keep your pee (urine) pale yellow. Eat a healthy diet. General instructions Talk with your doctor to figure out: ?What you need help with. ?What your safety needs are. Ask your doctor if it is safe for you to drive. If told, wear a bracelet that tracks where you are or shows that you are a person with memory loss. Work with your family to make big decisions. Keep all follow-up visits as told by your doctor. This is important. Contact a doctor if: You have any new symptoms. Your symptoms get worse. You have problems with swallowing or choking. Get help right away if: You feel very sad, or feel that you want to harm yourself. You or your family members are worried for your safety. If you ever feel like you may hurt yourself or others, or have thoughts about taking your own life, get help right away. You can go to your nearest emergency department or call: Your local emergency services (911 in the [place] A suicide crisis helpline, such as the National Suicide Prevention Lifeline at . This is open 24 hours a day. Summary Dementia often affects memory and thinking. Some types of dementia get worse with time and cannot be reversed. Treatment for this condition depends on the cause. Talk with your doctor to figure out what you need help with. Your doctor can help you find support groups and other doctors who can help with your care. This information is not intended to replace advice given to you by your health care provider. Make sure you discuss any questions you have with your health care provider. Document Released: 01/07/2009 Document Revised: 04/11/2019 Document Reviewed: 04/11/2019 [employer] Patient Education 2020 [employer] Follow Up Care 02/09/2024 19:37:05 With:LARRY THOMAS DO Address: [address] [place] [phone] [phone] When:02/16/2024 09:30:00 Comments:This is your post-hospital appointment. Follow-up as scheduled. [facility] 02-10-2024 Note Discharge Instructions Thank you for allowing [place] to assist you with your healthcare needs. The following is important discharge information regarding your hospital visit. Your Care Team SUSY ALBRIGHT APRN-SHAMEKA Your Diagnosis (HFpEF) heart failure with preserved ejection fraction Dementia Weakness What to do next Scheduled Follow-Up Appointments Appointment Type When With Where Contact Information StatusPC OV 02/16/2024 09:30 AM LARRY MADISON DO [address] [phone] Confirmed Follow Up Appointments Follow Up with LARRY THOMAS DO When:02/16/2024 09:30 AM EST Where:[address] [facility] [place] [address]- [phone] Additional Information: This is your post-hospital appointment. Follow-up as scheduled. The Following Activity and Diet Have Been Ordered for You Discharge Activity - Ordered -- Resume your pre-hospitalization activity, 02/10/24 12:29:00 EST Discharge Diet - Ordered -- No changes were made to your diet during your hospital stay. Please resume your pre hospitalization diet on discharge., 02/10/24 12:29:00 EST Someone Will Contact You Regarding These Home Health Referrals Consult Home Health - OT (Home Health OT Consult) - Ordered -- 02/10/24 12:29:00 EST, Home Therapy Order: OT Eval & Treat, Home Therapy Instruction: Full weight bearing, Reason: ADL assistance Consult Home Health - PT (Home Health PT Consult) - Ordered -- 02/10/24 12:29:00 EST, Home Therapy Order: PT Eval & Treat, Reason: General Debility, Home Therapy Instruction: Full weight bearing Consult Home Health - RN - Ordered -- 02/10/24 15:07:00 EST, Reason: Disease management Allergies NKA Medications Please ask your primary doctor or pharmacist before taking any other medication not listed, including over the counter drugs, herbal medications, vitamins and or supplements as they may interact with your home medications. What How Much When Instructions Last Dose New polyethylene glycol 3350 (MiraLax oral powder for reconstitution) by mouth Every other day Unchanged acetaminophen (Tylenol Extra Strength 500 mg oral tablet) 2 tab(s) by mouth Every 6 hours as needed for as needed for pain Unchanged alendronate (alendronate 70 mg oral tablet) 1 tab(s) by mouth Every week Duration: 84 Days with 6-8 oz plain water, at least 30 minutes before first food, beverage, or medication of the day. Sit up for at least 30 minutes after taking. Unchanged atorvastatin (atorvastatin 20 mg oral tablet) 1 tab(s) by mouth Once a day (in the evening) Duration: 100 Days Unchanged calcium carbonate (calcium (as carbonate) 600 mg oral tablet) 1 tab(s) by mouth Once a day Duration: 90 Days Unchanged divalproex sodium (divalproex sodium 125 mg oral delayed release tablet) 2 tab(s) by mouth Once a day TAKE 1 TABLET BY MOUTH TWICE A DAY Unchanged donepezil (donepezil 10 mg oral tablet) 1 tab(s) by mouth Daily at bedtime Unchanged ferrous sulfate (ferrous sulfate 325 mg (65 mg elemental iron) oral tablet) 1 tab(s) by mouth Wednesday / Wednesday / Wednesday Duration: 90 Days may take with food to minimize abdominal discomfort Unchanged losartan (losartan 50 mg oral tablet) 1 tab(s) by mouth Every day Duration: 100 Days Unchanged memantine (memantine 28 mg oral capsule, extended release) 1 cap by mouth Once a day per neuro Unchanged multivitamin (Multivitamin) 1 tab(s) by mouth Every day Please take this list to your next doctor s visit. Bring all medications you take, including over the counter medications, herbals and other supplements with you to your doctor s visit. Patients and families are reminded to discard old lists and to update any records with all medication providers or retail pharmacies. Medication Leaflets memantine ([facility] teen) Namenda, Namenda XR What is the most important information I should know about memantine? Follow all directions on your medicine label and package. Tell each of your healthcare providers about all your medical conditions, allergies, and all medicines you use. What is memantine? Memantine reduces the actions of chemicals in the brain that may contribute to the symptoms of Alzheimer's disease. Memantine is used to treat moderate to severe dementia of the Alzheimer's type. Memantine may also be used for purposes not listed in this medication guide. What should I discuss with my healthcare provider before taking memantine? You should not use memantine if you are allergic to it. To make sure memantine is safe for you, tell your doctor if you have: epilepsy or other seizure disorder; liver disease; kidney disease; urination problems; or a bladder or kidney infection. This medicine is not expected to harm an unborn baby. Tell your doctor if you are or plan to become . It is not known whether memantine passes into breast milk or if it could harm a nursing baby. Tell your doctor if you are breast-feeding a baby. How should I take memantine? Follow all directions on your prescription label. Your doctor may occasionally change your dose to make sure you get the best results. Do not take this medicine in larger or smaller amounts or for longer than recommended. Memantine can be taken with or without food. Do not crush, chew, break, or open an extended-release capsule. Swallow it whole. To make swallowing easier, you may open the extended-release capsule and sprinkle the medicine into a spoonful of applesauce. Swallow right away without chewing. Do not save the mixture for later use. Measure liquid medicine (oral solution) with the dosing syringe provided, or with a special dose-measuring spoon or medicine cup. If you do not have a dose-measuring device, ask your pharmacist for one. Do not mix the oral solution with any other liquids. Rinse the empty oral syringe with clean water and allow it to air dry after every use. Use memantine regularly to get the most benefit. Get your prescription refilled before you run out of medicine completely. Your doctor will need to check your progress while you are using memantine. Store memantine at room temperature away from moisture and heat. Keep the liquid medicine bottle tightly closed with the cap provided. Do not store the bottle with the oral syringe in it. Read all patient information, medication guides, and instruction sheets provided to you. Ask your doctor or pharmacist if you have any questions. What happens if I miss a dose? Take the missed dose as soon as you remember. Skip the missed dose if it is almost time for your next scheduled dose. Do not take extra medicine to make up the missed dose. If you miss doses or forget to take your medicine for several days, call your doctor before starting the medicine again. What happens if I overdose? Seek emergency medical attention or call the Poison Help line at . What should I avoid while taking memantine? Memantine can cause side effects that may impair your thinking or reactions. Be careful if you drive or do anything that requires you to be awake and alert. What are the possible side effects of memantine? Get emergency medical help if you have signs of an allergic reaction: hives; difficulty breathing; swelling of your face, lips, tongue, or throat. Call your doctor at once if you have: severe headache, blurred vision, pounding in your neck or ears; seizure (convulsions); or unusual changes in mood or behavior. Common side effects may include: diarrhea; dizziness; or headache. This is not a complete list of side effects and others may occur. Call your doctor for medical advice about side effects. You may report side effects to FDA at 3-398-SLR-1189. What other drugs will affect memantine? Tell your doctor about all your current medicines and any you start or stop using, especially: amantadine; zonisamide; cough medicine that contains dextromethorphan (Delsym, Robitussin Maximum Strength, Vicks 44, and others); medicines to make the urine alkaline--urine sodium bicarbonate, potassium citrate (K-Lyte, Urocit-K), sodium citrate and citric acid (Bicitra, Oracit), or sodium citrate and potassium (Citrolith, Polycitra); or medicine to treat glaucoma or increased pressure inside the eyes--acetazolamide, methazolamide. This list is not complete. Other drugs may interact with memantine, including prescription and ilqg-enx-edsnznx medicines, vitamins, and herbal products. Not all possible interactions are listed in this medication guide. Where can I get more information? Your pharmacist can provide more information about memantine. Remember, keep this and all other medicines out of the reach of children, never share your medicines with others, and use this medication only for the indication prescribed. Every effort has been made to ensure that the information provided by [employer]. ('[employer]') is accurate, up-to-date, and complete, but no guarantee is made to that effect. Drug information contained herein may be time sensitive. [employer] information has been compiled for use by healthcare practitioners and consumers in the [place] and therefore [employer] does not warrant that uses outside of the [place] are appropriate, unless specifically indicated otherwise. [employer]'s drug information does not endorse drugs, diagnose patients or recommend therapy. [employer] drug information is an informational resource designed to assist licensed healthcare practitioners in caring for their patients and/or to serve consumers viewing this service as a supplement to, and not a substitute for, the expertise, skill, knowledge and judgment of healthcare practitioners. The absence of a warning for a given drug or drug combination in no way should be construed to indicate that the drug or drug combination is safe, effective or appropriate for any given patient. [employer] does not assume any responsibility for any aspect of healthcare administered with the aid of information [employer] provides. The information contained herein is not intended to cover all possible uses, directions, precautions, warnings, drug interactions, allergic reactions, or adverse effects. If you have questions about the drugs you are taking, check with your doctor, nurse or pharmacist. Copyright 7470-7498 [employer]. Version: 5.01. Revision Date: 09/21/2022. Education Materials Dementia Dementia is a condition that affects the way the brain works. It often affects memory and thinking. There are many types of dementia. Some types get worse with time and cannot be reversed. Some types of dementia include: Alzheimer's disease. This is the most common type. Vascular dementia. This type may happen due to a stroke. Lewy body dementia. This type may happen to people who have Parkinson's disease. Frontotemporal dementia. This type is caused by damage to nerve cells in certain parts of the brain. Some people may have more than one type, and this is called mixed dementia. What are the causes? This condition is caused by damage to cells in the brain. Some causes that cannot be reversed include: Having a condition that affects the blood vessels of the brain, such as diabetes, heart disease, or blood vessel disease. Changes to genes. Some causes that can be reversed or slowed include: Injury to the brain. Certain medicines. Infection. Not having enough vitamin B12 in the body, or thyroid problems. A tumor or blood clot in the brain. What are the signs or symptoms? Symptoms depend on the type of dementia. This may include: Problems remembering things. Having trouble taking a bath or putting clothes on. Forgetting appointments. Forgetting to pay bills. Trouble planning and making meals. Having trouble speaking. Getting lost easily. How is this treated? Treatment depends on the cause of the dementia. It might include taking medicines that help: To control the dementia. To slow down the dementia. To manage symptoms. In some cases, treating the cause of your dementia can improve symptoms, reverse symptoms, or slow down how quickly it gets worse. Your doctor can help you find support groups and other doctors who can help with your care. Follow these instructions at home: Medicines Take mndm-rvo-lnzddji and prescription medicines only as told by your doctor. Use a pill organizer to help you manage your medicines. Avoidtaking medicines for pain or for sleep. Lifestyle Make healthy choices: ? Be active as told by your doctor. ? Do not use any products that contain nicotine or tobacco, such as cigarettes, e-cigarettes, and chewing tobacco. If you need help quitting, ask your doctor. ? Do not drink alcohol. ? When you get stressed, do something that will help you to relax. Your doctor can give you tips. ? Spend time with other people. Make sure you get good sleep. To get good sleep: ? Try not to take naps during the day. ? Keep your bedroom dark and cool. ? In the few hours before you go to bed, try not to do any exercise. ? Do not have foods and drinks with caffeine at night. Eating and drinking Drink enough fluid to keep your pee (urine) pale yellow. Eat a healthy diet. General instructions Talk with your doctor to figure out: ? What you need help with. ? What your safety needs are. Ask your doctor if it is safe for you to drive. If told, wear a bracelet that tracks where you are or shows that you are a person with memory loss. Work with your family to make big decisions. Keep all follow-up visits as told by your doctor. This is important. Contact a doctor if: You have any new symptoms. Your symptoms get worse. You have problems with swallowing or choking. Get help right away if: You feel very sad, or feel that you want to harm yourself. You or your family members are worried for your safety. If you ever feel like you may hurt yourself or others, or have thoughts about taking your own life, get help right away. You can go to your nearest emergency department or call: Your local emergency services (911 in the [place] A suicide crisis helpline, such as the National Suicide Prevention Lifeline at . This is open 24 hours a day. Summary Dementia often affects memory and thinking. Some types of dementia get worse with time and cannot be reversed. Treatment for this condition depends on the cause. Talk with your doctor to figure out what you need help with. Your doctor can help you find support groups and other doctors who can help with your care. This information is not intended to replace advice given to you by your health care provider. Make sure you discuss any questions you have with your health care provider. Document Released: 01/07/2009 Document Revised: 04/11/2019 Document Reviewed: 04/11/2019 Elsevier Patient Education 2019 [employer] Additional Information VACCINATE! IT SAVES LIVES! Members of the community who have not yet received the COVID-19 vaccine and would like to receive it can visit one of [facility] vaccine clinics. There are many vaccine clinic locations within the [facility]. For locations and available times, please visit https://gettheshot.coronavirus.o hio.gov/. It is important to note that some COVID mobile vaccine clinics are held outdoors and may be canceled in rainy or stormy conditions. To learn more about pediatric vaccinations (ages 5-11), we invite you to visit the [employer] webpage. https://www.[employer].org/p ages/1144-Apmnz-Ycfxzooshxl-Freq efjczt-Klfxx-Zltohxvvd.html To learn more about the COVID-19 vaccine, we invite you to visit the CDC website for a list of frequently asked questions.https://www.cdc.gov/co ronavirus/2019-ncov/vaccines/faq .html [employer] Patient Portal Access Instructions: Stay connected with your healthcare team and access your personal medical information anytime with the [employer] Patient Portal. Please follow the directions below to create your [employer] account: 1.Access the email account you provided upon registration to the hospital/physician office.2.Look for an invitation email from [facility].3.Open the email and access the invitation link: Accept Invitation to [facility].4.Fill in the required alejandro to create your account. To access your account, visit [facility]. Click the blue button labeled Access Patient Portal and then log in with the username and password that you created in the steps above. You will be able to view your test results, lab results, a summary of your visits, upcoming appointments and more. There is also a convenient messaging option where you can send secure messages to your provider. In addition, you will have the ability to download any documents or summaries to your computer and/or send the information securely to a physician. Remember that your healthcare information is confidential, so carefully consider who you will allow to register on the [facility] Patient Portal for access to your information. You can also access the [facility] Patient Portal on the [facility] angelica. Simply click on Patient Portal and then log into your account. If you would like to receive a full copy of your medical records, please contact the [facility] Medical Records Department by calling [phone], Wednesday through Wednesday between 8 a.m. and 4:30 p.m. HOW TO SAFELY DISPOSE OF PRESCRIPTION MEDICATIONS Please use one of the following methods to safely dispose of your unused medications. 1.Use a drug disposal kit: the drug disposal pouch allows you to safely discard your old and unused drugs. Ask your nurse to give you one when you are discharged.2.Visit a local take-back location: Many local pharmacies and police departments have programs that collect old and unwanted prescription drugs. Call your local pharmacy or go to http://[employer]/2R5Vq3z to find one close to you.3.Make use of household items: Use cat litter or old coffee grounds to dispose medications if other options are not available. Mix your drugs with these household products, seal them in an airtight container and throw it into the garbage. Call [facility]: [phone] to be sure your drugs can be disposed of in this way. Some medicines may require a different approach.4.Never flush your medications down the toilet. IF YOU HAVE BEEN PRESCRIBED AN OPIOID FOR PAIN If you have been prescribed an opioid (such as hydrocodone, oxycodone or morphine), it is critical to understand the possible side effects and risks of opioid pain medications. Even when taken as directed, opioids can have several side effects including: Tolerance, meaning you might need to take more of a medication for the same pain relief. Nausea, vomiting and/or constipation. Sleepiness, dizziness, dry mouth, confusion, depression or itching. Physical dependence, meaning you have withdrawal symptoms when a medication is stopped, can develop within a few days. KNOW YOUR RESPONSIBILITIES It is important to know exactly how much and how often to take the opioid pain medications you are prescribed. Never take opioids in higher amounts or more often than prescribed. Do not combine opioids with alcohol or other drugs that cause drowsiness, such as benzodiazepines, also known as benzos, including diazepam and alprazolam, muscle relaxants or sleep aids. Never sell or share prescription opioids. This is illegal. Store opioids in a secure place and out of reach of others (including children, family, friends and visitors). The last page of this document has been signed and retained as a CHART COPY. Signatures Patient Education Materials Dementia, Sfto-hg-Xefc Medication Leaflets memantine My discharge plan and instructions have been reviewed and explained to me and I,CT DALTON understand my current condition and have read and understand these discharge instructions. I have received a written copy of the plan/instructions. If I have questions, I am aware that I should contact my doctor. 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 Weakness 2. (HFpEF) heart failure with preserved ejection fraction 3. Dementia Orders: Weakness- Consult PT and OT. Patient has been very weak over the past several weeks. She has been taking of her who has parkinsons. She has had a couple of falls. Son is hoping to get her rehab with possible plans to LTC however, he is not the POA for patients and there is concern about how he will be taken care of. HFpEF-patient was concerned about bilateral lower extremity edema. BNP was elevated To 3243. On my exam there was no edema. Appears euvolemic. Last echocardiogram was done 12/04/21. Dementia-Patient has dementia and has been having more agitation, confusion, and paranoia. Son is concerned about her ability to stay home independently and as a caregiver to her . DVT prophylaxis: Heparin Code Status: DNRCC Plan of care discussed with patient. All questions answered. Patient verbalizes understanding is agreeable to plan of care. This dictation was performed using voice recognition software and may include grammatical and/or spelling errors. Future Appointments Appointment Date:02/16/2024 09:30:00 AM Scheduled Provider:LARRY THOMAS DO Location:[facility] Appointment Type: OV [facility] 01-02-2025 Note Date of Service 02/10/24 Chief Complaint patient called EMS with complaint of BLE swelling. patient poor historian but continues to report BLE swelling on arrival. also states that she feels weak. History of Present Illness 83 year old female with past medical history of dementia, urinary frequency, dizziness, breast cancer, CKD Stage 3, anemia, HLD, HFpEF. Patient presented to [facility] ED on 02/09/24 due to family concerns for progressively worsening dementia, Increasing agitation. States that she has had urinary frequency however it looks like this is a chronic issue. There is also possible concern for increased edema to bilateral lower extremities. In the emergency department vital signs were within normal limits. CBC unremarkable. Urinalysis negative. BMP notable for calcium of 10.4. BNP 3243. X-ray chest unremarkable. Patient was subsequently admitted for observation. Overnight patient remained afebrile and hemodynamically stable with adequate oxygen saturations on room air. Labs reviewed, H&H stable. Renal function stable. On exam today, pt denies any fever or chills. No headache or dizziness. Denies chest pain, palpitations. No cough, dyspnea, sputum production. Denies N/V/D/C. No melena/hematochezia. No dysuria or hematuria. No new paresthesias. Review of Systems See HPI for specific ROS. All other systems reviewed and negative. Physical Exam Vitals and Measurements T: 36.3 C (Oral) TMIN: 35.6 C (Oral) TMAX: 36.4 C (Oral) HR: 80 (Monitored) RR: 14 BP: 148/82 SpO2:94% HT: 152 cm WT: 66.8 kg BMI: 29 Weight Current Weight Dosing Weight: 67 kg (02/09/24) Current Weight: 66.8 kg (02/10/24) GEN: Appears chronically ill EYES: No conjunctival erythema, drainage. EOMI EARS: Hearing grossly intact. NOSE: No nasal discharge. THROAT: Oral cavity and pharynx pink and moist. CHEST: Normal S1 and S2. Rhythm is regular. Clear to auscultation, without rales, rhonchi, wheezing. ABD: Positive bowel sounds x 4 quads. Soft, nondistended, nontender. EXT: No significant deformity or joint abnormality. No edema. Peripheral pulses intact. NEURO: Sensation grossly intact SKIN: Skin color normal PSYCH: The mental examination revealed the patient was alert and oriented to name and place. Forgetful. Lab Results 02/09 05:19 WBC: 5.7 Hgb: 11.3 L Hct: 33.2 L Platelet: 272 Neutrophil %: 64.3 Glucose Level: 111 H Sodium Level: 145 Potassium Level: 4.0 BUN: 22 H Creatinine Lvl (s): 0.89 02/08 19:48 WBC: 7.6 Hgb: 11.7 L Hct: 34.7 Platelet: 266 Neutrophil %: 58.3 Glucose Level: 108 Sodium Level: 144 Potassium Level: 3.6 BUN: 25 H Creatinine Lvl (s): 0.96 Imaging Results and Diagnostics XR Chest 1 View Result Date: February 09, 2024 Verified By: EILEEN CHRISTINE DO CLINICAL STATEMENT: IMPRESSION: No acute radiographic findings. I have personally reviewed the images of this examination and agree with theresident's findings and interpretation. Assessment/Plan 1. Weakness 2. (HFpEF) heart failure with preserved ejection fraction 3. Dementia Orders: Weakness- Consult PT and OT. Patient has been very weak over the past several weeks. She has been taking of her who has parkinsons. She has had a couple of falls. Son is hoping to get her rehab with possible plans to LTC however, he is not the POA for patients and there is concern about how he will be taken care of. HFpEF-patient was concerned about bilateral lower extremity edema. BNP was elevated To 3243. On my exam there was no edema. Appears euvolemic. Last echocardiogram was done 12/04/21. Dementia-Patient has dementia and has been having more agitation, confusion, and paranoia. Son is concerned about her ability to stay home independently and as a caregiver to her . DVT prophylaxis: Heparin Code Status: DNRCC Plan of care discussed with patient. All questions answered. Patient verbalizes understanding is agreeable to plan of care. This dictation was performed using voice recognition software and may include grammatical and/or spelling errors. Problem List/Past Medical History Ongoing Anemia Chronic kidney disease, stage 3a Cogwheel rigidity Compression fracture of L5 vertebra Dementia DNR (do not resuscitate) History of breast cancer Hyperglycemia Hyperostosis frontalis interna Hypertension goal BP (blood pressure) < 150/90 Left breast mass 12:00 3cmfn US core benign, CONCORDANT, no diagnostic f/u needed Left breast mass 12:00 8cmfn US core benign fat necrosis DISCORDANT, surg exc rec Memory impairment Mixed hyperlipidemia Onychomycosis of toenail Osteoarthritis Osteoporosis Post-menopausal Prediabetes Right arm pain Sore on toe Urinary frequency Vulvar lesion Historical Breast cancer Leukoplakia of vulva Procedure/Surgical History Lumpectomy of left breast History of lumbar laminectomy Bone of thumb Tubal ligation Medications Home Medications (10) Active alendronate 70 mg oral tablet 70 mg = 1 tab(s), Oral, qWeek atorvastatin 20 mg oral tablet 20 mg = 1 tab(s), Oral, qPM calcium (as carbonate) 600 mg oral tablet 600 mg = 1 tab(s), Oral, qDay divalproex sodium 125 mg oral delayed release tablet 250 mg = 2 tab(s), Oral, qDay donepezil 10 mg oral tablet 10 mg = 1 tab(s), Oral, qHS ferrous sulfate 325 mg (65 mg elemental iron) oral tablet 325 mg = 1 tab(s), Oral, Mon/Wed/Fri losartan 50 mg oral tablet 50 mg = 1 tab(s), Oral, Daily memantine 28 mg oral capsule, extended release 28 mg = 1 cap(s), Oral, qDay Multivitamin 1 tab(s), Oral, Daily Tylenol Extra Strength 500 mg oral tablet 1,000 mg = 2 tab(s), PRN, Oral, q6hr Allergies NKA Social History Alcohol Use: Never., 07/09/2020 Employment/School Status: Retired., 05/28/2022 Home/Environment Domestic Concerns: None. Living situation: Home/Independent. Safe place to go: Yes. Lives In: Multilevel home, 1st floor bedroom, 1st floor bathroom. Current Home Treatments None. Professional Skilled Services or Special Community Resources None. Spouse Name: zara. Marital Status: ., 06/19/2022 Nutrition/Health Type of diet: Regular. Caffeine intake amount: No Caffeine. Appetite Good. Eating Difficulties None., 03/16/2023 Sexual Sexually active: No., 05/28/2022 Substance Abuse Use: Never., 03/05/2022 Tobacco Nicotine Use: Never (less than 100 in lifetime)., 04/07/2019 Family History Cancer: Son and Son. Coronary stent site: Son. Diabetes mellitus: Son. Heart attack: Father, Brother, Son, Son and Son. High blood pressure: Mother and Son. Hypercholesterolemia: Son. Kidney disease: Sister. Health Status Family Member(s) Family Member(s) Relationship: Mother, Age: 95 Years, Cause: old age Relationship: Father, Age: 78 Years, Cause: prostate cancer Relationship: Sister, Age: Unknown Relationship: Brother, Age: Unknown, Cause: heart attack Immunizations pneumococcal 13-valent conjugate vaccine: 0.5 unknown unit (10/11/19) pneumococcal 23-valent vaccine(Pneumovax: 0 unknown unit (01/09/05) SARS-CoV-2 (COVID-19) mRNA-1273 vaccine: 0.25 unknown unit (06/15/21) SARS-CoV-2 (COVID-19) mRNA-1273 vaccine: 0.25 unknown unit (12/12/20) SARS-CoV-2 (COVID-19) mRNA-1273 vaccine: 100 mcg (03/28/20) SARS-CoV-2 (COVID-19) mRNA-1273 vaccine: 100 mcg (02/29/20) zoster vaccine, inactivated: 0.5 unknown unit (11/05/22) Code Status Code Status - Ordered -- 02/10/24 7:50:00 EST, DNRCC (Comfort Care), Constant Order Digitally Signed by SUSY ALBRIGHT on 02/10/2024 10:21 AM [place] [id number] Note* Exam Date Time Procedure Performing Provider Status 02/09/24 8:10 PM XR Chest 1 View EILEEN CHRISTINE DO; Aut h (Verified) [id number] ORIGINAL EXAMINATION: ONE XRAY VIEW OF THE CHEST02/09/2024 8:10 pm COMPARISON: 12/21/2023 HISTORY: ORDERING SYSTEM PROVIDED HISTORY: Reason for Exam: SOB/cough/fever FINDINGS: Cardiomediastinal contours are within normal limits. Hypoventilatory changes with associated bronchovascular crowding. No focal consolidation or pulmonary edema. No pleural effusion or visible pneumothorax. No acute osseous abnormality. Degenerative changes of the visualized osseous structures. IMPRESSION: No acute radiographic findings. I have personally reviewed the images of this examination and agree with the resident's findings and interpretation. Interpreted by: Eileen Christine Preliminary Report By: Daniel Kent Electronically signed By Eileen Christine Dictated Date: 02/09/2024 8:20:07 PM Prelim Date: 02/09/2024 8:25:07 PM Sign Date: 02/09/2024 9:08:10 PM Ordering Provider: TRIXIE BARONE [facility]01-01-2025 Note* Exam Date Time Procedure Performing Provider Status 02/09/24 7:59 PM EKG [ED AOH] - CV MD TRIXIE BARONE MD; Auth (Verified) ECG Final Report Sinus rhythm LVH by voltage Inferior infarct, old Anterior Q waves, possibly due to LVH Electronic Signature: MD TRIXIE BARONE MD 02/09/2024 20:03:00 [facility]12-13-2024 Hospital Discharge instructions Patient Education 01/21/2024 11:14:13 Anatomy of the Female Urinary Tract Anatomy of the Female Urinary Tract Your urinary tract helps get rid of urine (your body s liquid waste). The kidneys collect chemicalsand water your body doesn t need. This is turned into urine. Urine travels out of the kidneys through the ureters to the bladder. The bladder holds urine until you re ready to release it. The urethracarries urine from the bladder out of the body. The main sphincter muscle circles the mid-urethra. Front view of female urinary tract. 4679-2255 [employer]. [address] [place] [address], [place] [address]. All rights reserved. This information is not intended as a substitute for professional medical care. Always follow yourhealthcare professional's instructions. Follow Up Care 01/21/2024 09:33:55 With:LARRY THOMAS DO Address: [address] [facility] [place], [place] [address]- [phone] When:2-4 days [facility] 12-13-2024 Note Discharge Instructions Thank you for allowing [facility] to assist you with your healthcare needs. The following is importantdischarge information regarding your hospital visit. Diagnosis from Today's Visit Bladder pain What to Do Next Instructions from Your Care Team No qualifying data available. Post Acute Orders No qualifying data available. You Need to Schedule the Following Appointments Follow Up with LARRY THOMAS DO When:Within 2-4 days Where:[address] [place] [address]- [phone] Allergies NKA Medications Please ask your primary doctor or pharmacist before taking any other medication not listed, including over the counter drugs, herbal medications, vitamins and or supplements as they may interact withyour home medications. What How Much When Instructions Last Dose New phenazopyridine (Pyridium 100 mg oral tablet) 1 tab(s) by mouth Two (2) times a day Duration: 3 Days Printed Prescription Unchanged acetaminophen (Tylenol Extra Strength 500 mg oral tablet) 2 tab(s) by mouth Every 6 hours as needed for as needed for pain Unchanged alendronate (alendronate 70 mg oral tablet) 1 tab(s) by mouth Every week Duration: 84 Days with 6-8 oz plain water, at least 30 minutes before first food, beverage, or medication of the day.Sit up for at least 30 minutes after taking. Unchanged atorvastatin (atorvastatin 20 mg oral tablet) 1 tab(s) by mouth Once a day (in the evening) Duration: 100 Days Unchanged calcium carbonate (calcium (as carbonate) 600 mg oral tablet) 1 tab(s) by mouth Once a day Duration: 90 Days Unchanged divalproex sodium (divalproex sodium 125 mg oral delayed release tablet) 2 tab(s) by mouth Once a day TAKE 1 TABLET BY MOUTH TWICE A DAY Unchanged donepezil (donepezil 10 mg oral tablet) 1 tab(s) by mouth Daily at bedtime Unchanged ferrous sulfate (ferrous sulfate 325 mg (65 mg elemental iron) oral tablet) 1 tab(s) by mouth Wednesday / Wednesday / Wednesday Duration: 90 Days may take with food to minimize abdominal discomfort Unchanged losartan (losartan 50 mg oral tablet) 1 tab(s) by mouth Every day Duration: 100 Days Unchanged memantine (memantine 28 mg oral capsule, extended release) 1 cap by mouth Once a day per neuro Unchanged multivitamin (Multivitamin) 1 tab(s) by mouth Every day Please take this list to your next doctor s visit. Bring all medications you take, including over the counter medications, herbals and other supplements with you to your doctor s visit. Patients and families are reminded to discard old lists and to update any records with all medication providers or retail pharmacies. Education Materials Anatomy of the Female Urinary Tract Your urinary tract helps get rid of urine (your body s liquid waste). The kidneys collect chemicalsand water your body doesn t need. This is turned into urine. Urine travels out of the kidneys through the ureters to the bladder. The bladder holds urine until you re ready to release it. The urethracarries urine from the bladder out of the body. The main sphincter muscle circles the mid-urethra. Front view of female urinary tract. 3533-1232 [employer]. [address] [place] [address]. All rights reserved. This information is not intended as a substitute for professional medical care. Always follow yourhealthcare professional's instructions. Additional Information VACCINATE! IT SAVES LIVES! Members of the community who have not yet received the COVID-19 vaccine and would like to receive it can visit one of [facility] vaccine clinics. There are many vaccine clinic locations within the [facility]. For locations and available times, please visit www.[email or web address].[place].gov/. It is important to note that some COVID mobile vaccine clinics are held outdoors and may be canceled in rainy or stormy conditions. To learn more about pediatric vaccinations (ages 5-11), we invite you to visit the [facility] webpage. https://www.[facility].org/pages/1563-Sddcs-Seoobkfzrek-Syehkxnxgd-Qwohm-Fzt stions.htmlTo learn more about the COVID-19 vaccine, we invite you to visit the CDC website for a list of frequently asked questions. https://www.cdc.gov/coronavirus/2019-ncov/vaccines/faq.html [facility] Patient Portal Access Instructions: Stay connected with your healthcare team and access your personal medical information anytime with the [facility] Patient Portal. If you would like a full copy of your medical records please contact the [facility] Medical Records Department Wednesday through Wednesday between 8a.m. and 4:30p.m. Please follow the directions below to access the portal: 1.Access the email account you provided upon registration to the [facility].2.Look for an invitation email from [facility].3.Open the email and access the invitation link: Accept Invitation to [facility]4.Fill in the required alejandro to create your account. Sign into www.[email or web address] with your username and password that you created in the above steps to stay up to date. You can then view a summary of results, a summary of your visits, and the ability to download your summaries to your computer or send the information securely to a physician. Remember that your healthcare information is confidential, so carefully consider who you will allow to register on the [facility] Patient Portal for access to your information. You can also access the [facility] Patient Portal on the [employer]. Simply click on Health Records under [employer] and then click on the [employer] logo. HOW TO SAFELY DISPOSE OF PRESCRIPTION MEDICATIONS Please use one of the following methods to safely dispose of your unused medications. 1.Use a drug disposal kit: the drug disposal pouch allows you to safely discard your old and unuseddrugs. Ask your nurse to give you one when you are discharged.2.Visit a local take-back location: Many local pharmacies and police departments have programs that collect old and unwanted prescriptiondrugs. Call your local pharmacy or go to http://[employer]/9J4Zn9g to find one close to you.3.Make use of household items: Use cat litter or old coffee grounds to dispose medications if other options arenot available. Mix your drugs with these household products, seal them in an airtight container andthrow it into the garbage. Call [facility]: [phone] to be sure your drugs can be disposed of in this way. Some medicines may require a different approach.4.Never flush your medications down the toilet. IF YOU HAVE BEEN PRESCRIBED AN OPIOIDS FOR PAIN If you have been prescribed an opioid (such as hydrocodone, oxycodone or morphine), it is critical to understand the possible side effects and risks of opioid pain medications. Even when taken as directed, opioids can have several side effects including: Tolerance, meaning you might need to take more of a medication for the same pain relief. Nausea, vomiting and/or constipation. Sleepiness, dizziness, dry mouth, confusion, depression or itching. Physical dependence, meaning you have withdrawal symptoms when a medication is stopped ? this can develop within a few days. KNOW YOUR RESPONSIBILITIES It is important to know exactly how much and how often to take the opioid pain medications you are prescribed. Never take opioids in higher amounts or more often than prescribed. Do not combine opioids with alcohol or other drugs that cause drowsiness, such as benzodiazepines, also known as benzos,including diazepam and alprazolam, muscle relaxants or sleep aids. Never sell or share prescriptionopioids. This is illegal. Store opioids in a secure place and out of reach of others (including children, family, friends and visitors). The last page(s) of this document has been signed and retained as a CHART COPY Signatures Patient Education Materials Anatomy of the Female Urinary Tract Medication Leaflets My discharge plan and instructions have been reviewed and explained to me and ISHA CAROLE A understand my current condition and have read and understand these discharge instructions. I have received a written copy of the plan/instructions. If I have questions, I am aware that I should contact my doctor. 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 There is moderate loss of height of the L5 body that seems greater than on the earlier MRI with mild retropulsion at the superior endplate. This is probably nonacute. Other lumbar vertebra show normal height. There is minimal L3-4 anterolisthesis also. No spondylolysis. Moderate lower lumbar facet arthropathy. Severe L5-S1 disc space narrowing the creased on the MRI. Symmetric SI joints. IMPRESSION: Moderate degenerative changes. There is apparent progression of L5 compression from the remote MRI, otherwise age uncertain. Interpreted by: Jalil Downey MD Preliminary Report By: Jalil Donwey MD Electronically signed By Jalil Downey MD Dictated Date: 12/21/2023 4:31:09 PM Prelim Date: 12/21/2023 4:34:05 PM Sign Date: 12/21/2023 4:34:05 PM Ordering Provider: [facility]11-12-2024 Note ORIGINAL EXAMINATION: TWO XRAY VIEWS OF THE CHEST12/21/2023 9:51 am XR Chest, two views COMPARISON: 12/05/2021 HISTORY: ORDERING SYSTEM PROVIDED HISTORY: Reason for Exam: confusion, elevated pbnp, leg swelling, FINDINGS: The lungs show no suspicious nodule, infiltrate, consolidation or mass. Heart size and mediastinal contours are stable accounting for differences in projection and patient position. No pneumothorax, pleural fluid, or vascular congestion is seen. The bones show no acute process. Mild calcification of aorta. Degenerative changes in the shoulders and spine. IMPRESSION: No acute cardio pulmonary process. Interpreted by: Jalil Downey MD Preliminary Report By: Jalil Downey MD Electronically signed By Jalil Downey MD Dictated Date: 12/21/2023 4:20:33 PM Prelim Date: 12/21/2023 4:21:17 PM Sign Date: 12/21/2023 4:21:17 PM Ordering Provider: [facility]11-09-2024 Note. MICRO - Microbiology PROCEDURE: Urine Culture [*1] SOURCE: Urine, Clean Catch BODY SITE: COLLECTED DATE/TIME: 12/15/2023 11:04 EST RECEIVED DATE/TIME: 12/16/2023 14:00 EST START DATE/TIME: 12/16/2023 14:00 EST FREE TEXT SOURCE: FINAL REPORTS Final Report [] Verified Date/Time/Personnel: 12/18/2023 07:27 EST No growth at 48 hours. PRELIMINARY REPORTS Preliminary Report [] Verified Date/Time/Personnel: 12/17/2023 09:31 EST No growth to date Performing Locations *1: This test was performed at: [facility], [address] [place] [address], [phone] , [facility]10-31-2024 Hospital Discharge instructions Patient Education 12/09/2023 09:33:25 Anatomy of the Female Urinary Tract Anatomy of the Female Urinary Tract Your urinary tract helps get rid of urine (your body s liquid waste). The kidneys collect chemicalsand water your body doesn t need. This is turned into urine. Urine travels out of the kidneys through the ureters to the bladder. The bladder holds urine until you re ready to release it. The urethracarries urine from the bladder out of the body. The main sphincter muscle circles the mid-urethra. Front view of female urinary tract. 4506-3188 [employer]. [address] [place] [address]. All rights reserved. This information is not intended as a substitute for professional medical care. Always follow yourhealthcare professional's instructions. Follow Up Care 12/09/2023 08:33:51 With:LARRY THOMAS DO Address: [address] [place] [phone] When:2-4 days [facility] 10-31-2024 Note Discharge Instructions Thank you for allowing [facility] to assist you with your healthcare needs. The following is importantdischarge information regarding your hospital visit. Diagnosis from Today's Visit Urinary frequency What to Do Next Instructions from Your Care Team No qualifying data available. Post Acute Orders No qualifying data available. You Need to Schedule the Following Appointments Follow Up with LARRY THOMAS DO When:Within 2-4 days Where:[address] [place] [phone] Allergies NKA Medications Please ask your primary doctor or pharmacist before taking any other medication not listed, including over the counter drugs, herbal medications, vitamins and or supplements as they may interact withyour home medications. What How Much When Instructions Last Dose Unchanged alendronate (alendronate 70 mg oral tablet) 1 tab(s) by mouth Every week Duration: 84 Days with 6-8 oz plain water, at least 30 minutes before first food, beverage, or medication of the day.Sit up for at least 30 minutes after taking. Unchanged anastrozole (anastrozole 1 mg oral tablet) 1 tab(s) by mouth Once a day (in the evening) Unchanged aspirin (aspirin 81 mg oral delayed release tablet) 1 tab(s) by mouth Once a day (in the morning) Duration: 90 Days do not crush or chew Unchanged atorvastatin (atorvastatin 20 mg oral tablet) 1 tab(s) by mouth Once a day (in the evening) Duration: 90 Days Unchanged calcium carbonate (calcium (as carbonate) 600 mg oral tablet) 1 tab(s) by mouth Twice daily with meals Duration: 90 Days Unchanged donepezil (donepezil 10 mg oral tablet) 1 tab(s) by mouth Daily at bedtime Unchanged losartan (losartan 50 mg oral tablet) 1 tab(s) by mouth Every day Duration: 100 Days Unchanged memantine (memantine 5 mg oral tablet) 1 tab(s) by mouth Once a day (in the morning) Unchanged multivitamin (Multivitamin) 1 tab(s) by mouth Every day Please take this list to your next doctor s visit. Bring all medications you take, including over the counter medications, herbals and other supplements with you to your doctor s visit. Patients and families are reminded to discard old lists and to update any records with all medication providers or retail pharmacies. Education Materials Anatomy of the Female Urinary Tract Your urinary tract helps get rid of urine (your body s liquid waste). The kidneys collect chemicalsand water your body doesn t need. This is turned into urine. Urine travels out of the kidneys through the ureters to the bladder. The bladder holds urine until you re ready to release it. The urethracarries urine from the bladder out of the body. The main sphincter muscle circles the mid-urethra. Front view of female urinary tract. 8211-4703 [employer]. [address] [place] [address]. All rights reserved. This information is not intended as a substitute for professional medical care. Always follow yourhealthcare professional's instructions. Additional Information VACCINATE! IT SAVES LIVES! Members of the community who have not yet received the COVID-19 vaccine and would like to receive it can visit one of [facility] vaccine clinics. There are many vaccine clinic locations within the [facility]. For locations and available times, please visit www.gettheshot.coronavirus.[place].gov/. It is important to note that some COVID mobile vaccine clinics are held outdoors and may be canceled in rainy or stormy conditions. To learn more about pediatric vaccinations (ages 5-11), we invite you to visit the [facility] webpage. https://www.[facility].org/pages/7913-Erwvh-Dwkmfnbuexd-Usjnoihtvo-Chkhh-Zig stions.htmlTo learn more about the COVID-19 vaccine, we invite you to visit the CDC website for a list of frequently asked questions. https://www.cdc.gov/coronavirus/2019-ncov/vaccines/faq.html [facility] Patient Portal Access Instructions: Stay connected with your healthcare team and access your personal medical information anytime with the [facility]. If you would like a full copy of your medical records please contact the [facility] Medical Records Department Wednesday through Wednesday between 8a.m. and 4:30p.m. Please follow the directions below to access the portal: 1.Access the email account you provided upon registration to the [facility].2.Look for an invitation email from [facility].3.Open the email and access the invitation link: Accept Invitation to [facility]4.Fill in the required alejandro to create your account. Sign into [email or web address].[email or web address] with your username and password that you created in the above steps to stay up to date. You can then view a summary of results, a summary of your visits, and the ability to download your summaries to your computer or send the information securely to a physician. Remember that your healthcare information is confidential, so carefully consider who you will allow to register on the [facility] Patient Portal for access to your information. You can also access the [facility] Patient Portal on the [employer]. Simply click on Health Records under [employer] and then click on the [employer] logo. HOW TO SAFELY DISPOSE OF PRESCRIPTION MEDICATIONS Please use one of the following methods to safely dispose of your unused medications. 1.Use a drug disposal kit: the drug disposal pouch allows you to safely discard your old and unuseddrugs. Ask your nurse to give you one when you are discharged.2.Visit a local take-back location: Many local pharmacies and police departments have programs that collect old and unwanted prescriptiondrugs. Call your local pharmacy or go to http://[employer]/9O6Am6h to find one close to you.3.Make use of household items: Use cat litter or old coffee grounds to dispose medications if other options arenot available. Mix your drugs with these household products, seal them in an airtight container andthrow it into the garbage. Call [facility]: [phone] to be sure your drugs can be disposed of in this way. Some medicines may require a different approach.4.Never flush your medications down the toilet. IF YOU HAVE BEEN PRESCRIBED AN OPIOIDS FOR PAIN If you have been prescribed an opioid (such as hydrocodone, oxycodone or morphine), it is critical to understand the possible side effects and risks of opioid pain medications. Even when taken as directed, opioids can have several side effects including: Tolerance, meaning you might need to take more of a medication for the same pain relief. Nausea, vomiting and/or constipation. Sleepiness, dizziness, dry mouth, confusion, depression or itching. Physical dependence, meaning you have withdrawal symptoms when a medication is stopped ? this can develop within a few days. KNOW YOUR RESPONSIBILITIES It is important to know exactly how much and how often to take the opioid pain medications you are prescribed. Never take opioids in higher amounts or more often than prescribed. Do not combine opioids with alcohol or other drugs that cause drowsiness, such as benzodiazepines, also known as benzos,including diazepam and alprazolam, muscle relaxants or sleep aids. Never sell or share prescriptionopioids. This is illegal. Store opioids in a secure place and out of reach of others (including children, family, friends and visitors). The last page(s) of this document has been signed and retained as a CHART COPY Signatures Patient Education Materials Anatomy of the Female Urinary Tract Medication Leaflets My discharge plan and instructions have been reviewed and explained to me and I,CT DALTON understand my current condition and have read and understand these discharge instructions. I have received a written copy of the plan/instructions. If I have questions, I am aware that I should contact my doctor. 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 Sometimes the leg pain can happen without any back pain. Sciatica happens when a spinal nerve is irritated or has pressure put on it as comes out of the spinal canal in the lower back. This most often happens when a bulge or rupture of a nearby spinal disk presses on the nerve. Sciatica can also be caused by a narrowing of the spinal canal (spinal stenosis) or spasm of the muscle in the buttocks that the sciatic nerve passes through (pyriform muscle). Sciatica is also called lumbar radiculopathy. Sciatica may begin after a sudden twisting or bending force, such as in a car accident. Or it can happen after a simple awkward movement. In either case, muscle spasm often also happens. Muscle spasmmakes the pain worse. A healthcare provider makes a diagnosis of sciatica from your symptoms and a physical exam. Unless you had an injury from a car accident or fall, you usually won t have X-rays taken at this time. This is because the nerves and disks in your back can t be seen on an X-ray. If the provider sees signsof a compressed nerve, you will need to schedule an MRI scan as an outpatient. Signs of a compressed nerve include loss of strength in a leg. Most sciatica gets better with medicine, exercise, and physical therapy. If your symptoms continue after at least 3 months of medical treatment, you may need surgery or injections to your lower back. Home care Follow these tips when caring for yourself at home: You may need to stay in bed the first few days. But as soon as possible, begin sitting up or walking. This will help you avoid problems that come from staying in bed for long periods. When in bed, try to find a position that is comfortable. A firm mattress is best. Try lying flat onyour back with pillows under your knees. You can also try lying on your side with your knees bent up toward your chest and a pillow between your knees. Avoid sitting for long periods. This puts more stress on your lower back than standing or walking. Use heat from a hot shower, hot bath, or heating pad to help ease pain. Massage can also help. You can also try using an ice pack. You can make your own ice pack by putting ice cubes in a plastic bag. Wrap the bag in a thin towel. Try both heat and cold to see which works best. Use the method that feels best for 20 minutes several times a day. You may use acetaminophen or ibuprofen to ease pain, unless another pain medicine was prescribed. Note: If you have chronic liver or kidney disease, talk with your healthcare provider before taking these medicines. Also talk with your provider if you ve had a stomach ulcer or gastrointestinal bleeding. Use safe lifting methods. Don t lift anything heavier than 15 pounds until all of the pain is gone. Follow-up care Follow up with your healthcare provider, or as advised. You may need physical therapy or additionaltests. If X-rays were taken, a radiologist will look at them. You will be told of any new findings that may affect your care. When to seek medical advice Call your healthcare provider right away if any of these occur: Pain gets worse even after taking prescribed medicine Weakness or numbness in 1 or both legs or hips Numbness in your groin or genital area You can t control your bowel or bladder Fever Redness or swelling over your back or spine [id number] [employer]. [address] [place] [address]. All rights reserved. This information is not intended as a substitute for professional medical care. Always follow yourhealthcare professional's instructions. Follow Up Care 11/29/2023 08:56:34 With:Go to emergency room if symptoms worsen Address:Unknown When:2-4 days With:LARRY THOMAS DO Address: [address] [place] [phone] When:2-4 days [facility] 10-21-2024 Note Discharge Instructions Thank you for allowing [facility] to assist you with your healthcare needs. The following is importantdischarge information regarding your hospital visit. Diagnosis from Today's Visit Sciatic pain What to Do Next Instructions from Your Care Team please take antiinflammatories such as ibuprofen 400mg every 6 hours and follow up with PCP. If symptoms worsen or do not improve or if you develop numbness or tingling sensation in your groin, experience any loss of control of your bowel or bladder, or weakness of your legs please return to the EDfor more emergent evaluation. No qualifying data available. Post Acute Orders No qualifying data available. You Need to Schedule the Following Appointments Follow Up with Go to emergency room if symptoms worsen When:Within 2-4 days Follow Up with LARRY THOMAS DO When:Within 2-4 days Where:[address] [place] [id number] [phone] Allergies NKA Medications Please ask your primary doctor or pharmacist before taking any other medication not listed, including over the counter drugs, herbal medications, vitamins and or supplements as they may interact withyour home medications. What How Much When Instructions Last Dose Unchanged alendronate (alendronate 70 mg oral tablet) 1 tab(s) by mouth Every week Duration: 84 Days with 6-8 oz plain water, at least 30 minutes before first food, beverage, or medication of the day.Sit up for at least 30 minutes after taking. Unchanged anastrozole (anastrozole 1 mg oral tablet) 1 tab(s) by mouth Once a day (in the evening) Unchanged aspirin (aspirin 81 mg oral delayed release tablet) 1 tab(s) by mouth Once a day (in the morning) Duration: 90 Days do not crush or chew Unchanged atorvastatin (atorvastatin 20 mg oral tablet) 1 tab(s) by mouth Once a day (in the evening) Duration: 90 Days Unchanged calcium carbonate (calcium (as carbonate) 600 mg oral tablet) 1 tab(s) by mouth Twice daily with meals Duration: 90 Days Unchanged donepezil (donepezil 10 mg oral tablet) 1 tab(s) by mouth Daily at bedtime Unchanged losartan (losartan 50 mg oral tablet) 1 tab(s) by mouth Every day Duration: 100 Days Unchanged memantine (memantine 5 mg oral tablet) 1 tab(s) by mouth Once a day (in the morning) Unchanged multivitamin (Multivitamin) 1 tab(s) by mouth Every day Please take this list to your next doctor s visit. Bring all medications you take, including over the counter medications, herbals and other supplements with you to your doctor s visit. Patients and families are reminded to discard old lists and to update any records with all medication providers or retail pharmacies. Education Materials Sciatica Sciatica is a condition that causes pain in the lower back that spreads down into the buttock, hip,and leg. Sometimes the leg pain can happen without any back pain. Sciatica happens when a spinal nerve is irritated or has pressure put on it as comes out of the spinal canal in the lower back. This most often happens when a bulge or rupture of a nearby spinal disk presses on the nerve. Sciatica can also be caused by a narrowing of the spinal canal (spinal stenosis) or spasm of the muscle in the buttocks that the sciatic nerve passes through (pyriform muscle). Sciatica is also called lumbar radiculopathy. Sciatica may begin after a sudden twisting or bending force, such as in a car accident. Or it can happen after a simple awkward movement. In either case, muscle spasm often also happens. Muscle spasmmakes the pain worse. A healthcare provider makes a diagnosis of sciatica from your symptoms and a physical exam. Unless you had an injury from a car accident or fall, you usually won t have X-rays taken at this time. This is because the nerves and disks in your back can t be seen on an X-ray. If the provider sees signsof a compressed nerve, you will need to schedule an MRI scan as an outpatient. Signs of a compressed nerve include loss of strength in a leg. Most sciatica gets better with medicine, exercise, and physical therapy. If your symptoms continue after at least 3 months of medical treatment, you may need surgery or injections to your lower back. Home care Follow these tips when caring for yourself at home: You may need to stay in bed the first few days. But as soon as possible, begin sitting up or walking. This will help you avoid problems that come from staying in bed for long periods. When in bed, try to find a position that is comfortable. A firm mattress is best. Try lying flat onyour back with pillows under your knees. You can also try lying on your side with your knees bent up toward your chest and a pillow between your knees. Avoid sitting for long periods. This puts more stress on your lower back than standing or walking. Use heat from a hot shower, hot bath, or heating pad to help ease pain. Massage can also help. You can also try using an ice pack. You can make your own ice pack by putting ice cubes in a plastic bag. Wrap the bag in a thin towel. Try both heat and cold to see which works best. Use the method that feels best for 20 minutes several times a day. You may use acetaminophen or ibuprofen to ease pain, unless another pain medicine was prescribed. Note: If you have chronic liver or kidney disease, talk with your healthcare provider before taking these medicines. Also talk with your provider if you ve had a stomach ulcer or gastrointestinal bleeding. Use safe lifting methods. Don t lift anything heavier than 15 pounds until all of the pain is gone. Follow-up care Follow up with your healthcare provider, or as advised. You may need physical therapy or additionaltests. If X-rays were taken, a radiologist will look at them. You will be told of any new findings that may affect your care. When to seek medical advice Call your healthcare provider right away if any of these occur: Pain gets worse even after taking prescribed medicine Weakness or numbness in 1 or both legs or hips Numbness in your groin or genital area You can t control your bowel or bladder Fever Redness or swelling over your back or spine [id number] [employer]. [address] [place] [address], [place] [address]. All rights reserved. This information is not intended as a substitute for professional medical care. Always follow yourhealthcare professional's instructions. Additional Information VACCINATE! IT SAVES LIVES! Members of the community who have not yet received the COVID-19 vaccine and would like to receive it can visit one of [facility] vaccine clinics. There are many vaccine clinic locations within the [facility]. For locations and available times, please visit www.gettheshot.coronavirus.[place].gov/. It is important to note that some COVID mobile vaccine clinics are held outdoors and may be canceled in rainy or stormy conditions. To learn more about pediatric vaccinations (ages 5-11), we invite you to visit the [facility] webpage. https://www.[employer].org/pages/7565-Cqxuq-Hivfpbevrnl-Bsysqwyola-Ofhre-Uln stions.htmlTo learn more about the COVID-19 vaccine, we invite you to visit the CDC website for a list of frequently asked questions. https://www.cdc.gov/coronavirus/2019-ncov/vaccines/faq.html [facility] Patient Portal Access Instructions: Stay connected with your healthcare team and access your personal medical information anytime with the [facility] Patient Portal. If you would like a full copy of your medical records please contact the [facility] Medical Records Department Wednesday through Wednesday between 8a.m. and 4:30p.m. Please follow the directions below to access the portal: 1.Access the email account you provided upon registration to the hospital.2.Look for an invitation email from [facility].3.Open the email and access the invitation link: Accept Invitation to [facility]4.Fill in the required alejandro to create your account. Sign into www.[employer] with your username and password that you created in the above steps to stay up to date. You can then view a summary of results, a summary of your visits, and the ability to download your summaries to your computer or send the information securely to a physician. Remember that your healthcare information is confidential, so carefully consider who you will allow to register on the [facility] Patient Portal for access to your information. You can also access the [facility] Patient Portal on the [employer]. Simply click on Health Records under HealthData and then click on the [facility] logo. HOW TO SAFELY DISPOSE OF PRESCRIPTION MEDICATIONS Please use one of the following methods to safely dispose of your unused medications. 1.Use a drug disposal kit: the drug disposal pouch allows you to safely discard your old and unuseddrugs. Ask your nurse to give you one when you are discharged.2.Visit a local take-back location: Many local pharmacies and police departments have programs that collect old and unwanted prescriptiondrugs. Call your local pharmacy or go to http://[employer]/4H2Fj6p to find one close to you.3.Make use of household items: Use cat litter or old coffee grounds to dispose medications if other options arenot available. Mix your drugs with these household products, seal them in an airtight container andthrow it into the garbage. Call [facility]: [phone] to be sure your drugs can be disposed of in this way. Some medicines may require a different approach.4.Never flush your medications down the toilet. IF YOU HAVE BEEN PRESCRIBED AN OPIOIDS FOR PAIN If you have been prescribed an opioid (such as hydrocodone, oxycodone or morphine), it is critical to understand the possible side effects and risks of opioid pain medications. Even when taken as directed, opioids can have several side effects including: Tolerance, meaning you might need to take more of a medication for the same pain relief. Nausea, vomiting and/or constipation. Sleepiness, dizziness, dry mouth, confusion, depression or itching. Physical dependence, meaning you have withdrawal symptoms when a medication is stopped ? this can develop within a few days. KNOW YOUR RESPONSIBILITIES It is important to know exactly how much and how often to take the opioid pain medications you are prescribed. Never take opioids in higher amounts or more often than prescribed. Do not combine opioids with alcohol or other drugs that cause drowsiness, such as benzodiazepines, also known as benzos,including diazepam and alprazolam, muscle relaxants or sleep aids. Never sell or share prescriptionopioids. This is illegal. Store opioids in a secure place and out of reach of others (including children, family, friends and visitors). The last page(s) of this document has been signed and retained as a CHART COPY Signatures Patient Education Materials Sciatica Medication Leaflets My discharge plan and instructions have been reviewed and explained to me and I,SHA, CT A understand my current condition and have read and understand these discharge instructions. I have received a written copy of the plan/instructions. If I have questions, I am aware that I should contact my doctor. 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 Alignment of the hip is within normal limits. There is mild joint space narrowing. Soft tissues are unremarkable. 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 Interpreted by: Gino Ivy MD Preliminary Report By: Gino Ivy MD Electronically signed By Gino Ivy MD Dictated Date: 11/29/2023 10:05:30 AM Prelim Date: 11/29/2023 11:51:51 AM Sign Date: 11/29/2023 11:51:51 AM Ordering Provider: [facility]03-06-2024 Note ORIGINAL EXAMINATION: CT OF THE HEAD WITHOUT CONTRAST 04/14/2023 9:55 am TECHNIQUE: CT of the head was performed without the administration of intravenous contrast. Automated exposure control, iterative reconstruction, and/or weight based adjustment of the mA/kV was utilized to reduce the radiation dose to as low as reasonably achievable. COMPARISON: 12/03/2021 HISTORY: ORDERING SYSTEM PROVIDED HISTORY: Reason for Exam: alzheimers disease alzheimers disease. Increasing memory deficit over the past couple of years. FINDINGS: There is no acute intracranial hemorrhage, hydrocephalus, or mass effect. Moderate ventriculomegaly does not appear significantly changed from the prior examination is favored to represent moderate age-related volume loss. No lobar predominance is identified. Patchy white matter hypodensities are nonspecific but may represent moderate chronic microvascular angiopathy in a patient of this age. Atherosclerotic calcifications are present in the cavernous carotid arteries. Included paranasal sinuses and mastoid air cells appear clear. Soft tissue density in the bilateral external auditory canals likely reflects cerumen but would be amenable to direct visualization. No acute calvarial abnormality. IMPRESSION: No significant change from prior. Interpreted by: Veronika Richardson MD Preliminary Report By: Veronika Richardson MD Electronically signed By Veronika Richardson MD Dictated Date: 04/14/2023 10:32:56 AM Prelim Date: 04/14/2023 10:35:22 AM Sign Date: 04/14/2023 10:35:22 AM Ordering Provider: [facility]04-26-2023 Miscellaneous Notes* Telephone Encounter - Brenton Jennings RN - 06/03/2022 11:26 AM EDT Received a request from [facility] for all of Ct's left breast cancer treatment medical records. Faxed the request to medical records on [facility], fax confirmation sheet received. [facility] Note ORIGINAL EXAMINATION: ULTRASOUND OF THE KIDNEYS 04/15/2022 8:29 am COMPARISON: None. HISTORY: ORDERING SYSTEM PROVIDED HISTORY: Reason for Exam: ckd 3a, rule out obstruction FINDINGS: The right kidney measures 9.3 cm in length and the left kidney measures 10.6 cm in length. Kidneys demonstrate normal cortical echogenicity. No hydronephrosis or intrarenal stones. No focal lesions. 15 mm left-sided parapelvic renal cysts suspected. No other significant focal lesion. The urinary bladder is not distended and cannot be evaluated on this exam. IMPRESSION: Unremarkable ultrasound of the kidneys. No evidence for hydronephrosis on this exam. Interpreted by: Selwyn Shah MD Preliminary Report By: Selwyn Shah MD Electronically signed By Selwyn Shah MD Dictated Date: 04/15/2022 10:13:41 AM Prelim Date: 04/15/2022 10:15:33 AM Sign Date: 04/15/2022 10:15:33 AM [facility] Note ORIGINAL EXAMINATION: ULTRASOUND OF THE KIDNEYS 04/15/2022 8:29 am COMPARISON: None. HISTORY: ORDERING SYSTEM PROVIDED HISTORY: Reason for Exam: ckd 3a, rule out obstruction FINDINGS: The right kidney measures 9.3 cm in length and the left kidney measures 10.6 cm in length. Kidneys demonstrate normal cortical echogenicity. No hydronephrosis or intrarenal stones. No focal lesions. 15 mm left-sided parapelvic renal cysts suspected. No other significant focal lesion. The urinary bladder is not distended and cannot be evaluated on this exam. IMPRESSION: Unremarkable ultrasound of the kidneys. No evidence for hydronephrosis on this exam. Interpreted by: Selwyn Shah MD Preliminary Report By: Selwyn Shah MD Electronically signed By Selwyn Shah MD Dictated Date: 04/15/2022 10:13:41 AM Prelim Date: 04/15/2022 10:15:33 AM Sign Date: 04/15/2022 10:15:33 AM Ordering Provider: [facility]02-28-2023 NoteHNO ID: [id number] Author: Paula Alaniz MD Service: ? Author Type: Physician Type: Progress Notes Filed: 04/08/2022 1:08 PM Note Text: [facility] [place] 1940 REFERRING PHYSICIAN: No ref. provider found CHIEF COMPLAINT: Consult (Left breast consult) HPI: The patient is a 81 year old female presents with abnormal findings of left breast radiographs. She has a history of left breast cancer, stage II, s/p left breast lumpectomy/SLNBrbx in 2018. She is presently on anastrazole She denies palpable breast masses. She denies nipple discharge. She denies breast pain. She has been undergoing yearly surveillance mammograms, the most recent with abnormal findings. She underwent US guided needle core breast biopsies on 03/23/2022 at [facility]. Findings of fat necrosis, inflammation and dense fibrosis, vascular calcifications. The radiologist states that pathology findings are not concordant with radiological studies and therefore recommended lumpectomy via wire localization. Patient is here for evaluation. PAST MEDICAL HISTORY Diagnosis Date Anemia Breast cancer (HCC) 03/2017 left CKD (chronic kidney disease) HTN (hypertension) Hypercholesteremia Memory impairment Mixed hyperlipidemia Osteoarthritis of multiple joints PAST SURGICAL HISTORY Procedure Laterality Date ADENOIDECTOMY HX BACK SURGERY HX BREAST LUMPECTOMY HX Left 04/2017 sentinel lymph node biopsy DILATION AND CURETTAGE DXAND/THER NONOBSTETRIC Dilation AND curettage PAST SURGICAL HISTORY OF Left 2022 breast biopsy TONSILLECTOMY AND ADENOIDECTOMY HX TUBAL LIGATION HX UPPER ARM/ELBOW SURGERY UNLISTED Current Outpatient Medications Medication Sig anastrozole (ARIMIDEX) 1 mg tablet TAKE 1 TABLET BY MOUTH EVERY DAY hydrALAZINE (APRESOLINE) 25 mg tablet Take 25 mg by mouth once daily. atorvastatin (LIPITOR) 10 mg tablet Take 10 mg by mouth once daily. atenolol (TENORMIN) 50 mg tablet Take 100 mg by mouth once daily. celecoxib (CELEBREX) 100 mg capsule Take 100 mg by mouth once daily. gabapentin (NEURONTIN) 300 mg capsule Take 300 mg by mouth twice daily. hydroCHLOROthiazide (HYDRODIURIL, ESIDRIX) 25 mg tablet Take 25 mg by mouth once daily. multivitamin tablet Take 1 tablet by mouth once daily. Ascorbic Acid 1,000 mg tablet Take 1,000 mg by mouth twice daily. (Patient not taking: Reported on 04/06/2022) ginkgo biloba (GINKOBA ORAL) Take 1 tablet by mouth once daily. (Patient not taking: Reported on 04/06/2022) docosahexaenoic acid/epa (FISH OIL ORAL) Take 1 capsule by mouth once daily. (Patient not taking: Reported on 04/06/2022) gabapentin 10 % cmap Apply 1 application to affected area once daily. (Patient not taking: Reported on 04/06/2022) cyclobenzaprine (FLEXERIL) 10 mg tablet Take 10 mg by mouth once daily as needed. (Patient not taking: Reported on 04/06/2022) CALCIUM CARBONATE/VITAMIN D3 (CALCIUM + D ORAL) Take 3 tablets by mouth once daily. (Patient not taking: Reported on 04/06/2022) ALLERGIES: Sulfa (Sulfonamide Antibiotics) PERSONAL HISTORY: Social History Tobacco Use Smoking status: Never Smokeless tobacco: Never Vaping Use Vaping Use: Never used Substance Use Topics Alcohol use: No Drug use: No FAMILY HISTORY Problem Relation Age of Onset Hypertension Mother Heart disease Father Cancer Father Kidney cancer Kidney Disease Sister Heart disease Brother [place] The review of systems data was entered by the nurse and reviewed by in Nursing Notes: Mini BrookeMATILDE 04/06/2022 9:50 AM Signed REVIEW OF SYSTEMS: General: The patient denies fatigue, notes weight loss, denies weight gain, denies feeling hot, and denies feelings of cold. Eyes: The patient denies glaucoma, notes eye injury/surgery, wears glasses or contacts. Ear/Nose/Throat: The patient notes allergies, denies hayfever, denies ear infections, and denies bloody noses. Cardiovascular: The patient denies chest pain, denies heart disease, notes high blood pressure,denies cardiac stent, denies prior heart attack, denies irregular heart beat, notes high cholesterol, denies poor circulation, denies heart failure, other cardiac issues, denies claudication, denies cold feet, denies peripheral arterial stent. Respiratory: The patient denies tuberculosis, denies pneumonia, denies frequent cough, denies pulmonary embolism, denies shortness of breath, and denies coughing up blood. Gastrointestinal: The patient denies difficulty swallowing, denies acid reflux, denies ulcers, denies vomiting, denies jaundice/hepatitis, denies gallbladder problems, denies black or tarry stools, denies hemorrhoids, denies bleeding from rectum, denies diverticulitis, denies constipation, denies diarrhea, denies loss of stool control, and denies hernias. Kidney/Bladder: The patient denies kidney stones, denies urine infections, and denies bloody urine. Skin: The patient denies a history of skin c (more content not included)... [facility]02-28-2023 History of Present illness Narrative* Paula Alaniz MD - 04/07/2022 7:[address] [place] 1940 REFERRING PHYSICIAN: No ref. provider found CHIEF COMPLAINT: Consult (Left breast consult) HPI: The patient is a 81 year old female presents with abnormal findings of left breast radiographs. She has a history of left breast cancer, stage II, s/p left breast lumpectomy/SLNBrbx in 2018. She is presently on anastrazole She denies palpable breast masses. She denies nipple discharge. She denies breast pain. She has been undergoing yearly surveillance mammograms, the most recent with abnormal findings. She underwent US guided needle core breast biopsies on 03/23/2022 at [facility]. Findings of fat necrosis, inflammation and dense fibrosis, vascular calcifications. The radiologist states thatpathology findings are not concordant with radiological studies and therefore recommended lumpectomy via wire localization. Patient is here for evaluation. PAST MEDICAL HISTORY Diagnosis Date Anemia Breast cancer (HCC) 03/2017 left CKD (chronic kidney disease) HTN (hypertension) Hypercholesteremia Memory impairment Mixed hyperlipidemia Osteoarthritis of multiple joints PAST SURGICAL HISTORY Procedure Laterality Date ADENOIDECTOMY HX BACK SURGERY HX BREAST LUMPECTOMY HX Left 04/2017 sentinel lymph node biopsy DILATION & CURETTAGE DX&/THER NONOBSTETRIC Dilation & curettage PAST SURGICAL HISTORY OF Left 2022 breast biopsy TONSILLECTOMY AND ADENOIDECTOMY HX TUBAL LIGATION HX UPPER ARM/ELBOW SURGERY UNLISTED Current Outpatient Medications Medication Sig anastrozole (ARIMIDEX) 1 mg tablet TAKE 1 TABLET BY MOUTH EVERY DAY hydrALAZINE (APRESOLINE) 25 mg tablet Take 25 mg by mouth once daily. atorvastatin (LIPITOR) 10 mg tablet Take 10 mg by mouth once daily. atenolol (TENORMIN) 50 mg tablet Take 100 mg by mouth once daily. celecoxib (CELEBREX) 100 mg capsule Take 100 mg by mouth once daily. gabapentin (NEURONTIN) 300 mg capsule Take 300 mg by mouth twice daily. hydroCHLOROthiazide (HYDRODIURIL, ESIDRIX) 25 mg tablet Take 25 mg by mouth once daily. multivitamin tablet Take 1 tablet by mouth once daily. Ascorbic Acid 1,000 mg tablet Take 1,000 mg by mouth twice daily. (Patient not taking: Reported on 04/06/2022) ginkgo biloba (GINKOBA ORAL) Take 1 tablet by mouth once daily. (Patient not taking: Reported on 04/06/2022) docosahexaenoic acid/epa (FISH OIL ORAL) Take 1 capsule by mouth once daily. (Patient not taking: Reported on 04/06/2022) gabapentin 10 % cmap Apply 1 application to affected area once daily. (Patient not taking: Reported on 04/06/2022) cyclobenzaprine (FLEXERIL) 10 mg tablet Take 10 mg by mouth once daily as needed. (Patient not taking: Reported on 04/06/2022) CALCIUM CARBONATE/VITAMIN D3 (CALCIUM + D ORAL) Take 3 tablets by mouth once daily. (Patient not taking: Reported on 04/06/2022) ALLERGIES: Sulfa (Sulfonamide Antibiotics) PERSONAL HISTORY: Social History Tobacco Use Smoking status: Never Smokeless tobacco: Never Vaping Use Vaping Use: Never used Substance Use Topics Alcohol use: No Drug use: No FAMILY HISTORY Problem Relation Age of Onset Hypertension Mother Heart disease Father Cancer Father Kidney cancer Kidney Disease Sister Heart disease Brother [place] The review of systems data was entered by the nurse and reviewed by in Nursing Notes: Mini BrookeMATILDE 04/06/2022 9:50 AM Signed REVIEW OF SYSTEMS: General: The patient denies fatigue, notes weight loss, denies weight gain, denies feeling hot, anddenies feelings of cold. Eyes: The patient denies glaucoma, notes eye injury/surgery, wears glasses or contacts. Ear/Nose/Throat: The patient notes allergies, denies hayfever, denies ear infections, and denies bloody noses. Cardiovascular: The patient denies chest pain, denies heart disease, notes high blood pressure,denies cardiac stent, denies prior heart attack, denies irregular heart beat, notes high cholesterol, denies poor circulation, denies heart failure, other cardiac issues, denies claudication, denies cold feet, denies peripheral arterial stent. Respiratory: The patient denies tuberculosis, denies pneumonia, denies frequent cough, denies pulmonary embolism, denies shortness of breath, and denies coughing up blood. Gastrointestinal: The patient denies difficulty swallowing, denies acid reflux, denies ulcers, denies vomiting, denies jaundice/hepatitis, denies gallbladder problems, denies black or tarry stools, denies hemorrhoids, denies bleeding from rectum, denies diverticulitis, denies constipation, denies diarrhea, denies loss of stool control, and denies hernias. Kidney/Bladder: The patient denies kidney stones, denies urine infections, and denies bloody urine. Skin: The patient denies a history of skin cancer, denies bleeding/changing moles, and denies a history of skin rash. Neurologic: The patient denies a history of epilepsy/convulsions, denies headaches, denies head/spinal injuries, and denies stroke/TIA. Psychiatric: The patient denies psychiatric medications, denies depression, and denies voices, denies substance abuse. Endocrine: The patient denies thyroid disorders, denies diabetes, and denies hormonal problems. Hematologic: The patient denies a history of bruising, denies bleeding, and denies anemia, denies blood clots. Infections: The patient notes a history of measles and mumps, denies rheumatic fever, and denies sexually transmitted diseases. Musculoskeletal: The patient denies back pain/injury, notes back problems, denies sciatica, denies knee/foot trouble, denies arthritis, or denies gout. When was patient's last Mammogram screening? 2022 Last Colonoscopy: over 10+ years ago Mini Brooke LPN PHYSICAL EXAMINATION: General: The patient is 81 year old female, well nourished, well hydrated in no acute distress. Thepatient is oriented to time, place, and person. VITALS: Blood pressure 148/70, pulse 109, temperature 36.6 C (97.8 F), height 157.5 cm (5' 2), weight 73.9 kg (163 lb), SpO2 99 %. Body mass index is 29.81 kg/m . Head - Normocephalic. EOM intact with sclera clear and no icterus noted. Wearing glasses Neck - supple with no jugular venous distention noted. Trachea is midline. No thyroid enlargement or thyroid nodules detected. No masses noted. Chest/breast - left breast less ptotic than right due to density of breast tissue and overlying skin changes due to radiation changes, no palpable breast masses of left or right breast, no nipple discharge noted Lungs - clear to auscultation. Normal breath sounds. No rales/rhonchi/wheezing noted. No labored breathing noted, such as retractions. No cough heard. Heart - normal S1 and S2 auscultated. No rubs/clicks/murmurs noted. Regular rate. Abdomen - soft and benign. Extremities - no calf tenderness noted. No pitting edema noted. Skin - normal skin integrity. Lymph - no cervical adenopathy detected, no supraclavicular adenopathy detected, no axillary adenopathy detected Neurological - gait normal, no focal deficits noted Psych - calm and appropriate RADIOLOGIC/LABORATORY STUDIES: As Noted Assessment IMPRESSION: history of left breast cancer PLAN: I have discussed the above with the patient and her son who is present with her. Given that all her studies and testing were done at [facility], I have recommended that she proceed with her evaluation/treatment there. The breast radiologists there have recommended wire localization lumpectomy of the left breast. I have told her that I could offer her the same but it would be at [facility]. She states thatshe would prefer [facility] as it is closer to home. The patient acknowledges the above I have answered all questions to the patient s satisfaction and the patient has no further questions. I have confirmed and edited as necessary, the PFSH and ROS obtained by others. Consultation requested by Dr. Larry Thomas for an opinion regarding patient's abnormal left breast radiographs. My final recommendations will be communicated back to the requesting physician by way of shared Medical record or letter to requesting physician via US mail. . Diagnoses: (R92.8) Abnormal ultrasound of breast (Z85.3) History of left breast cancer Return to Clinic: The patient is counseled to return to this clinic if any worsening signs/symptoms. Medical Decision Making: Problems: Moderate: New problem with uncertain prognosis Risk: Low: Low risk from testing/treatment Medical Decision Making Level: 3 - Low Paula Alaniz MD [facility] Nurse Note* Mini Brooke, MATILDE - 04/06/2022 9:47 AM EST REVIEW OF SYSTEMS: General: The patient denies fatigue, notes weight loss, denies weight gain, denies feeling hot, anddenies feelings of cold. Eyes: The patient denies glaucoma, notes eye injury/surgery, wears glasses or contacts. Ear/Nose/Throat: The patient notes allergies, denies hayfever, denies ear infections, and denies bloody noses. Cardiovascular: The patient denies chest pain, denies heart disease, notes high blood pressure,denies cardiac stent, denies prior heart attack, denies irregular heart beat, notes high cholesterol, denies poor circulation, denies heart failure, other cardiac issues, denies claudication, denies cold feet, denies peripheral arterial stent. Respiratory: The patient denies tuberculosis, denies pneumonia, denies frequent cough, denies pulmonary embolism, denies shortness of breath, and denies coughing up blood. Gastrointestinal: The patient denies difficulty swallowing, denies acid reflux, denies ulcers, denies vomiting, denies jaundice/hepatitis, denies gallbladder problems, denies black or tarry stools, denies hemorrhoids, denies bleeding from rectum, denies diverticulitis, denies constipation, denies diarrhea, denies loss of stool control, and denies hernias. Kidney/Bladder: The patient denies kidney stones, denies urine infections, and denies bloody urine. Skin: The patient denies a history of skin cancer, denies bleeding/changing moles, and denies a history of skin rash. Neurologic: The patient denies a history of epilepsy/convulsions, denies headaches, denies head/spinal injuries, and denies stroke/TIA. Psychiatric: The patient denies psychiatric medications, denies depression, and denies voices, denies substance abuse. Endocrine: The patient denies thyroid disorders, denies diabetes, and denies hormonal problems. Hematologic: The patient denies a history of bruising, denies bleeding, and denies anemia, denies blood clots. Infections: The patient notes a history of measles and mumps, denies rheumatic fever, and denies sexually transmitted diseases. Musculoskeletal: The patient denies back pain/injury, notes back problems, denies sciatica, denies knee/foot trouble, denies arthritis, or denies gout. When was patient's last Mammogram screening? 2022 Last Colonoscopy: over 10+ years ago Mini Brooke LPN [facility] in [facility] Note ORIGINAL FROM: JERRELL MOISE [address] [place] [id number] PROCEDURE FOR: CT Inga DALTON [address] [place] [id number] Home: PID#: [id number] Exam#: [id number] : 1940 Age: 81 TO: ALANNA WRIGHT DO [address] [address] Fax: NO FAX EXAMINATION: ULTRASOUND OF THE LEFT BREAST 01/22/2022 7:59 am TECHNIQUE: Color flow and real-time targeted ultrasound of the left breast 12 o'clock region were performed. COMPARISON: Mammogram 01/15/2022, 12/11/2020 HISTORY: ORDERING SYSTEM PROVIDED HISTORY: Reason for Exam: abnormal mammo Patient presents for further evaluation of left mammographic finding FINDINGS: In the left breast at 12 o'clock, 3 cm from nipple is an irregular hypoechoic mass with posterior acoustic shadowing that measures 1.4 x 1.2 x 0.9 cm. This finding correlates with the mammographic finding. Also incidentally noted in the left breast at 12 o'clock, 2 cm from nipple are shadowing calcifications located just deep to the skin which correlates with an area of benign fat necrosis calcifications seen mammographically. No other significant sonographic finding is identified in the scanned region of the left breast. IMPRESSION: Left breast mass at 12 o'clock is suspicious. An ultrasound-guided biopsy is recommended. BIRADS: MAMMOGRAM BI-RADS: 4: Suspicious abnormality RECALL: immediate RECALL TYPE: Left BX LETTER SENT: Biopsy Recommended BI-RADS 4 and 5 Interpreted by: Herminia Sandhu Preliminary Report By: Herminia Sandhu Electronically signed By Herminia Sandhu Dictated Date: 01/22/2022 8:34:01 AM Prelim Date: 01/22/2022 8:42:04 AM Sign Date: 01/22/2022 8:42:04 AM Ordering Provider: ALANNA WRIGHT CLINICAL: MAMMOGRAPHIC DENSITY LEFT BREAST. Warehouse Selector: JOSIE RUIZ RT(R) RDMS letter sent: Biopsy Recommended BI-RADS 4 and 5 Ultrasound BI-RADS: 4 Suspicious for malignancy [facility]12-15-2022 Note ORIGINAL FROM: [address] [address] PROCEDURE FOR: CT [address] [place] [address] Home: PID#: [id number] Exam#: [id number] : 1940 Age: 81 TO: ALANNA WRIGHT DO [address] [address] Fax: NO FAX EXAMINATION: ULTRASOUND OF THE LEFT BREAST 01/22/2022 7:59 am TECHNIQUE: Color flow and real-time targeted ultrasound of the left breast 12 o'clock region were performed. COMPARISON: Mammogram 01/15/2022, 12/11/2020 HISTORY: ORDERING SYSTEM PROVIDED HISTORY: Reason for Exam: abnormal mammo Patient presents for further evaluation of left mammographic finding FINDINGS: In the left breast at 12 o'clock, 3 cm from nipple is an irregular hypoechoic mass with posterior acoustic shadowing that measures 1.4 x 1.2 x 0.9 cm. This finding correlates with the mammographic finding. Also incidentally noted in the left breast at 12 o'clock, 2 cm from nipple are shadowing calcifications located just deep to the skin which correlates with an area of benign fat necrosis calcifications seen mammographically. No other significant sonographic finding is identified in the scanned region of the left breast. IMPRESSION: Left breast mass at 12 o'clock is suspicious. An ultrasound-guided biopsy is recommended. BIRADS: MAMMOGRAM BI-RADS: 4: Suspicious abnormality RECALL: immediate RECALL TYPE: Left BX LETTER SENT: Biopsy Recommended BI-RADS 4 and 5 Interpreted by: Herminia Sandhu Preliminary Report By: Herminia Sandhu Electronically signed By Herminia Sandhu Dictated Date: 01/22/2022 8:34:01 AM Prelim Date: 01/22/2022 8:42:04 AM Sign Date: 01/22/2022 8:42:04 AM Ordering Provider: ALANNA WRIGHT CLINICAL: MAMMOGRAPHIC DENSITY LEFT BREAST. Warehouse Selector: JOSIE RUIZ RT(R) RDMS letter sent: Biopsy Recommended BI-RADS 4 and 5 Ultrasound BI-RADS: 4 [facility] Discharge instructions Patient Education 12/25/2021 17:00:50 Dizziness, Uncertain Cause Dizziness (Uncertain Cause) Dizziness is a common symptom. It may be described as lightheadedness, spinning, or feeling like you are going to faint. Dizziness can have many causes. Be sure to tell the healthcare provider about: All medicines you take, including prescription, qpqr-ykv-knxujul, herbs, and supplements Any other symptoms you have Any health problems you are being treated for Any past major health problems you've had, such as a heart attack, balance issues, hearing problems, or blood pressure problems Anything that causes the dizziness to get worse or better Today's exam did not show an exact cause for your dizziness. Other tests may be needed. Follow up with your healthcare provider. Home care Dizziness that occurs with sudden standing may be a sign of mild dehydration. Drink extra fluids for the next few days. If you recently started a new medicine, stopped a medicine, or had the dose of a current medicine changed, talk with the prescribing healthcare provider. Your medicine plan may need adjustment. If dizziness lasts more than a few seconds, sit or lie down until it passes. This may help prevent injury in case you pass out. Get up slowly when you feel better. Don't drive or use power tools or dangerous equipment until you have had no dizziness for at least 48 hours. Follow-up care Follow up with your healthcare provider for further evaluation within the next 7 days or as advised. When to seek medical advice Call your healthcare provider for any of the following: Worsening of symptoms or new symptoms Passing out or seizure Repeated vomiting Headache Palpitations (the sense that your heart is fluttering or beating fast or hard) Shortness of breath Blood in vomit or stool (black or red color) Weakness of an arm or leg or 1 side of the face Vision or hearing changes Trouble walking or speaking Chest, arm, neck, back, or jaw pain [phone] [employer]. [address] [place] [address]. All rights reserved. This information is not intended as a substitute for professional medical care. Always follow yourhealthcare professional's instructions. 12/25/2021 17:00:47 CERUMEN IMPACTION, Home Care Earwax, Home Treatment Everyone produces earwax from the lining of the ear canal. It serves to lubricate and protect the ear. The wax that forms in the canal naturally moves toward the outside of the ear and falls out. Sometimes there will be a build-up of wax in the ear canal causing a blockage and loss of hearing. Directions are given below for home treatment. Home Care: If your doctor has advised you to remove a wax blockage yourself, follow these directions: Unless a prescription medicine was given, you may use an cvko-sgv-bmwgvca product made for clearingearwax (such as Debrox or Murine Earwax Drops). These contain carbamide peroxide and are available tmhf-ums-[id number]. Lie down with the blocked ear facing upward. Apply one dropper full of medicine and wait a few minutes. Wiggle the outer ear to get the solution to enter the canal. Lean over a sink or basin with the blocked ear facing downward. Use a rubber bulb syringe filled with warm (not hot or cold) water to rinse the ear several times. Use gentle pressure only. If you are having trouble draining the water out of your ear canal, put a few drops of rubbing alcohol (isopropyl alcohol) into the ear canal. This will help remove the remaining water. Repeat this procedure once a day for up to three days or until your hearing is back to normal. Do not use this treatment for more than three days in a row.. Do Not DO NOT use cold water to rinse the ear since this will make you dizzy. DO NOT perform this procedure if you have an ear infection. DO NOT perform this procedure if you have a ruptured eardrum. DO NOT use cotton applicators/Q-tips, matches, toothpicks, david pins, keys or other objects to clean the ear canal. This can cause infection of the ear canal or rupture of the eardrum. Because of their size and shape, it is common for cotton applicators/Q-tips to push the ear wax deeper into theear canal instead of removing it. This can make matters worse. Follow Up with your doctor or this facility if you are not improving after three cleaning attempts. Get Prompt Medical Attention if any of the following occur: Worsening ear pain Fever of 100.4 F (38 C) or higher, or as directed by your healthcare provider Hearing does not return to normal after three days of treatment Fluid drainage or bleeding from the ear canal Swelling, redness or tenderness of the outer ear Headache, neck pain or stiff neck [phone] [employer]. [address] [place] [address]. All rights reserved. This information is not intended as a substitute for professional medical care. Always follow yourhealthcare professional's instructions. Follow Up Care 12/25/2021 15:48:16 With:ALANNA WRIGHT DO Address: [address] [place] [address], [place] [address] [phone] When:2-4 days [facility] Maria 11-17-2022 Note Discharge Instructions Thank you for allowing [facility] to assist you with your healthcare needs. The following is importantdischarge information regarding your hospital visit. Diagnosis from Today's Visit Dizziness Impacted cerumen in left ear Dizziness What to Do Next Instructions from Your Care Team No qualifying data available. Post Acute Orders No qualifying data available. You Need to Schedule the Following Appointments Follow Up with ALANNA WRIGHT DO When Within 2-4 days Where: [address] [place] [address], [place] [phone] Allergies NKA Medications Please ask your primary doctor or pharmacist before taking any other medication not listed, including over the counter drugs, herbal medications, vitamins and or supplements as they may interact withyour home medications. What How Much When Instructions Last Dose Unchanged anastrozole (anastrozole 1 mg oral tablet) 1 tab(s) by mouth Once a day Unchanged aspirin (aspirin 325 mg oral tablet) 1 tab(s) by mouth Once a day Unchanged atorvastatin (atorvastatin 20 mg oral tablet) 0.5 tab(s) by mouth Once a day Unchanged celecoxib (celecoxib 100 mg oral capsule) 1 cap by mouth Once a day Unchanged hydrALAZINE (hydrALAZINE 25 mg oral tablet) 1 tab(s) by mouth Once a day Unchanged lisinopril (lisinopril 20 mg oral tablet) 1 tab(s) by mouth Once a day Unchanged memantine (memantine 5 mg oral tablet) 1 tab(s) by mouth Once a day Please take this list to your next doctor s visit. Bring all medications you take, including over the counter medications, herbals and other supplements with you to your doctor s visit. Patients and families are reminded to discard old lists and to update any records with all medication providers or retail pharmacies. Education Materials Dizziness (Uncertain Cause) Dizziness is a common symptom. It may be described as lightheadedness, spinning, or feeling like you are going to faint. Dizziness can have many causes. Be sure to tell the healthcare provider about: All medicines you take, including prescription, piny-fat-hdxrmrv, herbs, and supplements Any other symptoms you have Any health problems you are being treated for Any past major health problems you've had, such as a heart attack, balance issues, hearing problems, or blood pressure problems Anything that causes the dizziness to get worse or better Today's exam did not show an exact cause for your dizziness. Other tests may be needed. Follow up with your healthcare provider. Home care Dizziness that occurs with sudden standing may be a sign of mild dehydration. Drink extra fluids for the next few days. If you recently started a new medicine, stopped a medicine, or had the dose of a current medicine changed, talk with the prescribing healthcare provider. Your medicine plan may need adjustment. If dizziness lasts more than a few seconds, sit or lie down until it passes. This may help prevent injury in case you pass out. Get up slowly when you feel better. Don't drive or use power tools or dangerous equipment until you have had no dizziness for at least 48 hours. Follow-up care Follow up with your healthcare provider for further evaluation within the next 7 days or as advised. When to seek medical advice Call your healthcare provider for any of the following: Worsening of symptoms or new symptoms Passing out or seizure Repeated vomiting Headache Palpitations (the sense that your heart is fluttering or beating fast or hard) Shortness of breath Blood in vomit or stool (black or red color) Weakness of an arm or leg or 1 side of the face Vision or hearing changes Trouble walking or speaking Chest, arm, neck, back, or jaw pain [phone] [employer]. [address] [place], [place] [address], [place] [address]. All rights reserved. This information is not intended as a substitute for professional medical care. Always follow yourhealthcare professional's instructions. Earwax, Home Treatment Everyone produces earwax from the lining of the ear canal. It serves to lubricate and protect the ear. The wax that forms in the canal naturally moves toward the outside of the ear and falls out. Sometimes there will be a build-up of wax in the ear canal causing a blockage and loss of hearing. Directions are given below for home treatment. Home Care: If your doctor has advised you to remove a wax blockage yourself, follow these directions: Unless a prescription medicine was given, you may use an akrp-dce-qkfcoxp product made for clearingearwax (such as Debrox or Murine Earwax Drops). These contain carbamide peroxide and are available aken-bjj-mgwcfrx. Lie down with the blocked ear facing upward. Apply one dropper full of medicine and wait a few minutes. Wiggle the outer ear to get the solution to enter the canal. Lean over a sink or basin with the blocked ear facing downward. Use a rubber bulb syringe filled with warm (not hot or cold) water to rinse the ear several times. Use gentle pressure only. If you are having trouble draining the water out of your ear canal, put a few drops of rubbing alcohol (isopropyl alcohol) into the ear canal. This will help remove the remaining water. Repeat this procedure once a day for up to three days or until your hearing is back to normal. Do not use this treatment for more than three days in a row.. Do Not DO NOT use cold water to rinse the ear since this will make you dizzy. DO NOT perform this procedure if you have an ear infection. DO NOT perform this procedure if you have a ruptured eardrum. DO NOT use cotton applicators/Q-tips, matches, toothpicks, david pins, keys or other objects to clean the ear canal. This can cause infection of the ear canal or rupture of the eardrum. Because of their size and shape, it is common for cotton applicators/Q-tips to push the ear wax deeper into theear canal instead of removing it. This can make matters worse. Follow Up with your doctor or this facility if you are not improving after three cleaning attempts. Get Prompt Medical Attention if any of the following occur: Worsening ear pain Fever of 100.4 F (38 C) or higher, or as directed by your healthcare provider Hearing does not return to normal after three days of treatment Fluid drainage or bleeding from the ear canal Swelling, redness or tenderness of the outer ear Headache, neck pain or stiff neck [id number] [employer]. [address] [place] [address], [place] [address]. All rights reserved. This information is not intended as a substitute for professional medical care. Always follow yourhealthcare professional's instructions. Additional Information VACCINATE! IT SAVES LIVES! Members of the community who have not yet received the COVID-19 vaccine and would like to receive it can visit one of [facility] vaccine clinics. There are many vaccine clinic locations within the State. For locations and available times, please visit [email or web address]. It is important to note that some COVID mobile vaccine clinics are held outdoors and may be canceled in rainy orstormy conditions. To learn more about pediatric vaccinations (ages 5-11), we invite you to visit the [facility] webpage. [email or web address]/[email or web address]-[email or web address]-Fth stions.htmlTo learn more about the COVID-19 vaccine, we invite you to visit the [facility] website for a list of frequently asked questions. [email or web address]/[email or web address]-[email or web address] _Asked-Questions.pdf [facility] Patient Portal Access Instructions: Stay connected with your healthcare team and access your personal medical information anytime with the [facility] Patient Portal. If you would like a full copy of your medical records please contact the [facility] Medical Records Department Wednesday through Wednesday between 8a.m. and 4:30p.m. Please follow the directions below to access the portal: 1.Access the email account you provided upon registration to the hospital.2.Look for an invitation email from [facility].3.Open the email and access the invitation link: Accept Invitation to [facility]4.Fill in the required alejandro to create your account. Sign into www.[email or web address] [facility] with your username and password that you created in the above steps to stay up to date. You can then view a summary of results, a summary of your visits, and the ability to download your summaries to your computer or send the information securely to a physician. Remember that your healthcare information is confidential, so carefully consider who you will allow to register on the [facility] Patient Portal for access to your information. You can also access the [facility] Patient Portal on the [employer]. Simply click on Health Records under VisualShare and then click on the [facility] logo. HOW TO SAFELY DISPOSE OF PRESCRIPTION MEDICATIONS Please use one of the following methods to safely dispose of your unused medications. 1.Use a drug disposal kit: the drug disposal pouch allows you to safely discard your old and unuseddrugs. Ask your nurse to give you one when you are discharged.2.Visit a local take-back location: Many local pharmacies and police departments have programs that collect old and unwanted prescriptiondrugs. Call your local pharmacy or go to http://[employer]/6A5Iu6t to find one close to you.3.Make use of household items: Use cat litter or old coffee grounds to dispose medications if other options arenot available. Mix your drugs with these household products, seal them in an airtight container andthrow it into the garbage. Call [facility]: [phone] to be sure your drugs can be disposed of in this way. Some medicines may require a different approach.4.Never flush your medications down the toilet. IF YOU HAVE BEEN PRESCRIBED AN OPIOIDS FOR PAIN If you have been prescribed an opioid (such as hydrocodone, oxycodone or morphine), it is critical to understand the possible side effects and risks of opioid pain medications. Even when taken as directed, opioids can have several side effects including: Tolerance, meaning you might need to take more of a medication for the same pain relief. Nausea, vomiting and/or constipation. Sleepiness, dizziness, dry mouth, confusion, depression or itching. Physical dependence, meaning you have withdrawal symptoms when a medication is stopped ? this can develop within a few days. KNOW YOUR RESPONSIBILITIES It is important to know exactly how much and how often to take the opioid pain medications you are prescribed. Never take opioids in higher amounts or more often than prescribed. Do not combine opioids with alcohol or other drugs that cause drowsiness, such as benzodiazepines, also known as benzos,including diazepam and alprazolam, muscle relaxants or sleep aids. Never sell or share prescriptionopioids. This is illegal. Store opioids in a secure place and out of reach of others (including children, family, friends and visitors). The last page(s) of this document has been signed and retained as a CHART COPY Signatures Patient Education Materials Dizziness, Uncertain Cause CERUMEN IMPACTION, Home Care Medication Leaflets My discharge plan and instructions have been reviewed and explained to me and ISHA CAROLE A understand my current condition and have read and understand these discharge instructions. I have received a written copy of the plan/instructions. If I have questions, I am aware that I should contact my doctor. 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 It makes you feel unsteady or light-headed. You may feel like you are about to pass out (faint). Dizziness can lead to getting hurt if you stumble or fall. Dizziness can be caused by many things, including: Medicines. Not having enough water in your body (dehydration). Illness. Follow these instructions at home: Eating and drinking Drink enough fluid to keep your pee (urine) clear or pale yellow. This helps to keep you from getting dehydrated. Try to drink more clear fluids, such as water. Do not drink alcohol. Limit how much caffeine you drink or eat, if your doctor tells you to do that. Limit how much salt (sodium) you drink or eat, if your doctor tells you to do that. Activity Avoid making quick movements. ?When you stand up from sitting in a chair, steady yourself until you feel okay. ?In the morning, first sit up on the side of the bed. When you feel okay, stand slowly while you hold onto something. Do this until you know that your balance is fine. If you need to investigative research specialist one place for a long time, move your legs often. Tighten and relax the muscles in your legs while you are standing. Do not drive or use heavy machinery if you feel dizzy. Avoid bending down if you feel dizzy. Place items in your home so you can reach them easily withoutleaning over. Lifestyle Do not use any products that contain nicotine or tobacco, such as cigarettes and e-cigarettes. If you need help quitting, ask your doctor. Try to lower your stress level. You can do this by using methods such as yoga or meditation. Talk with your doctor if you need help. General instructions Watch your dizziness for any changes. Take nkca-ozj-jiikvny and prescription medicines only as told by your doctor. Talk with your doctorif you think that you are dizzy because of a medicine that you are taking. Tell a friend or a family member that you are feeling dizzy. If he or she notices any changes in your behavior, have this person call your doctor. Keep all follow-up visits as told by your doctor. This is important. Contact a doctor if: Your dizziness does not go away. Your dizziness or light-headedness gets worse. You feel sick to your stomach (nauseous). You have trouble hearing. You have new symptoms. You are unsteady on your feet. You feel like the room is spinning. Get help right away if: You throw up (vomit) or have watery poop (diarrhea), and you cannot eat or drink anything. You have trouble: ?Talking. ?Walking. ?Swallowing. ?Using your arms, hands, or legs. You feel generally weak. You are not thinking clearly, or you have trouble forming sentences. A friend or family member may notice this. You have: ?Chest pain. ?Pain in your belly (abdomen). ?Shortness of breath. ?Sweating. Your vision changes. You are bleeding. You have a very bad headache. You have neck pain or a stiff neck. You have a fever. These symptoms may be an emergency. Do not wait to see if the symptoms will go away. Get medical help right away. Call your local emergency services (911 in the [place] Do not drive yourself to the hospital. Summary Dizziness makes you feel unsteady or light-headed. You may feel like you are about to pass out (faint). Drink enough fluid to keep your pee (urine) clear or pale yellow. Do not drink alcohol. Avoid making quick movements if you feel dizzy. Watch your dizziness for any changes. This information is not intended to replace advice given to you by your health care provider. Make sure you discuss any questions you have with your health care provider. Document Released: 01/14/2012 Document Revised: 01/28/2018 Document Reviewed: 02/11/2017 [employer] Patient Education 2020 [employer] 12/06/2021 14:31:38 Fall Prevention and Home Safety, Mimx-ta-Rlfo Fall Prevention and Home Safety Falls cause injuries and can affect all age groups. It is possible to prevent falls. HOW TO PREVENT FALLS Wear shoes with rubber soles that do not have an opening for your toes. Keep the inside and outside of your house well lit. Use night lights throughout your home. Remove clutter from floors. Clean up floor spills. Remove throw rugs or fasten them to the floor with carpet tape. Do not place electrical cords across pathways. Put grab bars by your tub, shower, and toilet. Do not use towel bars as grab bars. Put handrails on both sides of the stairway. Fix loose handrails. Do not climb on stools or stepladders, if possible. Do not wax your floors. Repair uneven or unsafe sidewalks, walkways, or stairs. Keep items you use a lot within reach. Be aware of pets. Keep emergency numbers next to the telephone. Put smoke detectors in your home and near bedrooms. Ask your doctor what other things you can do to prevent falls. Document Released: 11/21/2009 Document Revised: 07/26/2012 Document Reviewed: 04/26/2012 ExitCare Patient Information 2015 [employer]. This information is not intended to replace advicegiven to you by your health care provider. Make sure you discuss any questions you have with your health care provider. Follow Up Care 12/03/2021 14:18:30 With:[facility], [phone] Address:Unknown When:1-2 days With:ALANNA WRIGHT DO Address: [address] [place] [address]- When:1-2 days Comments:Please call the office to schedule a follow up appointment [facility] 10-29-2022 Note Discharge Instructions Thank you for allowing [facility] to assist you with your healthcare needs. The following is importantdischarge information regarding your hospital visit. Your Care Team ALANNA WRIGHT DO Your Diagnosis Unsteady gait Dizziness Dizziness HTN - Hypertension What to do next Instructions From Your Doctor Check Heart rate every 8 hours for next 3 days Scheduled Follow-Up Appointments Appointment Type When Where Contact InformationMA Mammogram Screening Bilateral w/ Fer 12/12/2021 03:00 PM EDT [facility] Follow Up Appointments Follow Up with [facility], When Within 1-2 days Follow Up with ALANNA WRIGHT DO When Within 1-2 days Why: Please call the office to schedule a follow up appointment Where: [address] [place] [address] [place] [address]- The Following Activity and Diet Have Been Ordered for You Discharge Activity - Discontinued -- NO activity restrictions, 12/06/21 11:44:00 EDT Discharge Activity - Ordered -- NO activity restrictions, 12/06/21 12:37:00 EDT Transfer of Care Activity - Discontinued -- Activity As Tolerated, 12/06/21 11:44:00 EDT Discharge Diet - Ordered -- Type of Diet: Regular, 12/06/21 12:37:00 EDT The Following Equipment Has Been Ordered for You No qualifying data available. The Following Treatments Have Been Ordered for You Discharge Labs No qualifying data available. Discharge Radiology No qualifying data available. Other Therapies No qualifying data available. Post Acute Orders No qualifying data available. Someone Will Contact You Regarding These Home Health Referrals No home referrals have been ordered for you. No one will call you. Allergies NKA Medications Please ask your primary doctor or pharmacist before taking any other medication not listed, including over the counter drugs, herbal medications, vitamins and or supplements as they may interact withyour home medications. What How Much When Instructions Last Dose Unchanged anastrozole (anastrozole 1 mg oral tablet) 1 tab(s) by mouth Once a day Unchanged aspirin (aspirin 325 mg oral tablet) 1 tab(s) by mouth Once a day Unchanged atorvastatin (atorvastatin 20 mg oral tablet) 0.5 tab(s) by mouth Once a day Unchanged celecoxib (celecoxib 100 mg oral capsule) 1 cap by mouth Once a day Unchanged hydrALAZINE (hydrALAZINE 25 mg oral tablet) 1 tab(s) by mouth Once a day Unchanged lisinopril (lisinopril 20 mg oral tablet) 1 tab(s) by mouth Once a day Unchanged memantine (memantine 5 mg oral tablet) 1 tab(s) by mouth Once a day What How Much When Comments Stop Taking atenolol (atenolol 100 mg oral tablet) 1 tab(s) by mouth Once a day Stop Taking cyclobenzaprine (cyclobenzaprine 10 mg oral tablet) 1 tab(s) by mouth Once a day TAKE 1 TABLET BY MOUTH EVERY DAY NEEDED FOR MUSCLE SPASM Stop Taking donepezil (donepezil 5 mg oral tablet) 1 tab(s) by mouth Daily at bedtime Stop Taking hydroCHLOROthiazide (hydroCHLOROthiazide 25 mg oral tablet) 1 tab(s) by mouth Once a day Please take this list to your next doctor s visit. Bring all medications you take, including over the counter medications, herbals and other supplements with you to your doctor s visit. Patients and families are reminded to discard old lists and to update any records with all medication providers or retail pharmacies. Education Materials Dizziness Dizziness is a common problem. It makes you feel unsteady or light-headed. You may feel like you are about to pass out (faint). Dizziness can lead to getting hurt if you stumble or fall. Dizziness can be caused by many things, including: Medicines. Not having enough water in your body (dehydration). Illness. Follow these instructions at home: Eating and drinking Drink enough fluid to keep your pee (urine) clear or pale yellow. This helps to keep you from getting dehydrated. Try to drink more clear fluids, such as water. Do not drink alcohol. Limit how much caffeine you drink or eat, if your doctor tells you to do that. Limit how much salt (sodium) you drink or eat, if your doctor tells you to do that. Activity Avoid making quick movements. ? When you stand up from sitting in a chair, steady yourself until you feel okay. ? In the morning, first sit up on the side of the bed. When you feel okay, stand slowly while you hold onto something. Do this until you know that your balance is fine. If you need to investigative research specialist one place for a long time, move your legs often. Tighten and relax the muscles in your legs while you are standing. Do not drive or use heavy machinery if you feel dizzy. Avoid bending down if you feel dizzy. Place items in your home so you can reach them easily withoutleaning over. Lifestyle Do not use any products that contain nicotine or tobacco, such as cigarettes and e-cigarettes. If you need help quitting, ask your doctor. Try to lower your stress level. You can do this by using methods such as yoga or meditation. Talk with your doctor if you need help. General instructions Watch your dizziness for any changes. Take bgad-uev-eiztxpt and prescription medicines only as told by your doctor. Talk with your doctorif you think that you are dizzy because of a medicine that you are taking. Tell a friend or a family member that you are feeling dizzy. If he or she notices any changes in your behavior, have this person call your doctor. Keep all follow-up visits as told by your doctor. This is important. Contact a doctor if: Your dizziness does not go away. Your dizziness or light-headedness gets worse. You feel sick to your stomach (nauseous). You have trouble hearing. You have new symptoms. You are unsteady on your feet. You feel like the room is spinning. Get help right away if: You throw up (vomit) or have watery poop (diarrhea), and you cannot eat or drink anything. You have trouble: ? Talking. ? Walking. ? Swallowing. ? Using your arms, hands, or legs. You feel generally weak. You are not thinking clearly, or you have trouble forming sentences. A friend or family member may notice this. You have: ? Chest pain. ? Pain in your belly (abdomen). ? Shortness of breath. ? Sweating. Your vision changes. You are bleeding. You have a very bad headache. You have neck pain or a stiff neck. You have a fever. These symptoms may be an emergency. Do not wait to see if the symptoms will go away. Get medical help right away. Call your local emergency services (911 in the [place] Do not drive yourself to the hospital. Summary Dizziness makes you feel unsteady or light-headed. You may feel like you are about to pass out (faint). Drink enough fluid to keep your pee (urine) clear or pale yellow. Do not drink alcohol. Avoid making quick movements if you feel dizzy. Watch your dizziness for any changes. This information is not intended to replace advice given to you by your health care provider. Make sure you discuss any questions you have with your health care provider. Document Released: 01/14/2012 Document Revised: 01/28/2018 Document Reviewed: 02/11/2017 Elsevier Patient Education 2020 [employer] Fall Prevention and Home Safety Falls cause injuries and can affect all age groups. It is possible to prevent falls. HOW TO PREVENT FALLS Wear shoes with rubber soles that do not have an opening for your toes. Keep the inside and outside of your house well lit. Use night lights throughout your home. Remove clutter from floors. Clean up floor spills. Remove throw rugs or fasten them to the floor with carpet tape. Do not place electrical cords across pathways. Put grab bars by your tub, shower, and toilet. Do not use towel bars as grab bars. Put handrails on both sides of the stairway. Fix loose handrails. Do not climb on stools or stepladders, if possible. Do not wax your floors. Repair uneven or unsafe sidewalks, walkways, or stairs. Keep items you use a lot within reach. Be aware of pets. Keep emergency numbers next to the telephone. Put smoke detectors in your home and near bedrooms. Ask your doctor what other things you can do to prevent falls. Document Released: 11/21/2009 Document Revised: 07/26/2012 Document Reviewed: 04/26/2012 ExitCare Patient Information 2015 [employer] [facility]. This information is not intended to replace advicegiven to you by your health care provider. Make sure you discuss any questions you have with your health care provider. Additional Information VACCINATE! IT SAVES LIVES! Members of the community who have not yet received the COVID-19 vaccine and would like to receive it can visit one of [facility] vaccine clinics. There are many vaccine clinic locations within the [facility]. For locations and available times, please visit [email or web address] It is important to note that some COVID mobile vaccine clinics are held outdoors and may be canceled in rainy or stormy conditions. To learn more about pediatric vaccinations (ages 5-11), we invite you to visit the [facility] webpage. [email or web address]/[email or web address] [email or web address].htmlTo learn more about the COVID-19 vaccine, we invite you to visit the [facility] website for a list of frequently asked questions. [email or web address] _Asked-[email or web address] [facility] Patient Portal Access Instructions: Stay connected with your healthcare team and access your personal medical information anytime with the [facility] Patient Portal.If you would like a full copy of your medical records, please contact the [facility] Medical Records Department, Wednesday through Wednesday between 8a.m. and 4:30p.m. Please follow the directions below to access the portal: 1.Access the email account you provided upon registration to the [facility].2.Look for an invitation email from [facility].3.Open the email and access the invitation link: Accept Invitation to [facility]4.Fill in the required alejandro to create your account. Sign into [email or web address] with your username and password that you created in the above steps to stay up to date. You can then view a summary of results, a summary of your visits, and the ability to download your summaries to your computer or send the information securely to a physician. Remember that your healthcare information is confidential, so carefully consider who you will allow to register on the [facility] Patient Portal for access to your information. You can also access the [facility] Patient Portal on the [employer]. Simply click on Health Records under HealthData and then click on the [facility] logo. HOW TO SAFELY DISPOSE OF PRESCRIPTION MEDICATIONS Please use one of the following methods to safely dispose of your unused medications. 1.Use a drug disposal kit: the drug disposal pouch allows you to safely discard your old and unuseddrugs. Ask your nurse to give you one when you are discharged.2.Visit a local take-back location: Many local pharmacies and police departments have programs that collect old and unwanted prescriptiondrugs. Call your local pharmacy or go to http://bit.ly/3N9Uk2a to find one close to you.3.Make use of household items: Use cat litter or old coffee grounds to dispose medications if other options arenot available. Mix your drugs with these household products, seal them in an airtight container andthrow it into the garbage. Call [facility]: [phone] to be sure your drugs can be disposed of in this way. Some medicines may require a different approach.4.Never flush your medications down the toilet. IF YOU HAVE BEEN PRESCRIBED AN OPIOID FOR PAIN If you have been prescribed an opioid (such as hydrocodone, oxycodone or morphine), it is critical to understand the possible side effects and risks of opioid pain medications. Even when taken as directed, opioids can have several side effects including: Tolerance, meaning you might need to take more of a medication for the same pain relief. Nausea, vomiting and/or constipation. Sleepiness, dizziness, dry mouth, confusion, depression or itching. Physical dependence, meaning you have withdrawal symptoms when a medication is stopped, can develop within a few days. KNOW YOUR RESPONSIBILITIES It is important to know exactly how much and how often to take the opioid pain medications you are prescribed. Never take opioids in higher amounts or more often than prescribed. Do not combine opioids with alcohol or other drugs that cause drowsiness, such as benzodiazepines, also known as benzos, including diazepam and alprazolam, muscle relaxants or sleep aids. Never sell or share prescription opioids. This is illegal. Store opioids in a secure place and out of reach of others (including children, family, friends and visitors). The last page of this document has been signed and retained as a CHART COPY. Signatures Patient Education Materials Dizziness, Gkgr-ol-Whir Fall Prevention and Home Safety, Lnhy-hn-Uyhk Medication Leaflets My discharge plan and instructions have been reviewed and explained to me and ISHA CAROLE A understand my current condition and have read and understand these discharge instructions. I have received a written copy of the plan/instructions. If I have questions, I am aware that I should contact my doctor. 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 The following is importantdischarge information regarding your hospital visit. Your Care Team ALANNA WRIGHT DO Your Diagnosis Unsteady gait Dizziness Dizziness HTN - Hypertension What to do next Instructions From Your Doctor Check Heart rate every 8 hours for next 3 days Scheduled Follow-Up Appointments Appointment Type When Where Contact InformationMA Mammogram Screening Bilateral w/ Fer 12/12/2021 03:00 PM EDT [place] [facility] Follow Up Appointments Follow Up with [facility], [phone] When Within 1-2 days Follow Up with ALANNA WRIGHT DO When Within 1-2 days Why: Please call the office to schedule a follow up appointment Where: [address] [place] [id number]- The Following Activity and Diet Have Been Ordered for You Discharge Activity - Discontinued -- NO activity restrictions, 12/06/21 11:44:00 EDT Discharge Activity - Ordered -- NO activity restrictions, 12/06/21 12:37:00 EDT Transfer of Care Activity - Discontinued -- Activity As Tolerated, 12/06/21 11:44:00 EDT Discharge Diet - Ordered -- Type of Diet: Regular, 12/06/21 12:37:00 EDT The Following Equipment Has Been Ordered for You No qualifying data available. The Following Treatments Have Been Ordered for You Discharge Labs No qualifying data available. Discharge Radiology No qualifying data available. Other Therapies No qualifying data available. Post Acute Orders No qualifying data available. Someone Will Contact You Regarding These Home Health Referrals No home referrals have been ordered for you. No one will call you. Allergies NKA Medications Please ask your primary doctor or pharmacist before taking any other medication not listed, including over the counter drugs, herbal medications, vitamins and or supplements as they may interact withyour home medications. What How Much When Instructions Last Dose Unchanged anastrozole (anastrozole 1 mg oral tablet) 1 tab(s) by mouth Once a day Unchanged aspirin (aspirin 325 mg oral tablet) 1 tab(s) by mouth Once a day Unchanged atorvastatin (atorvastatin 20 mg oral tablet) 0.5 tab(s) by mouth Once a day Unchanged celecoxib (celecoxib 100 mg oral capsule) 1 cap by mouth Once a day Unchanged hydrALAZINE (hydrALAZINE 25 mg oral tablet) 1 tab(s) by mouth Once a day Unchanged lisinopril (lisinopril 20 mg oral tablet) 1 tab(s) by mouth Once a day Unchanged memantine (memantine 5 mg oral tablet) 1 tab(s) by mouth Once a day What How Much When Comments Stop Taking atenolol (atenolol 100 mg oral tablet) 1 tab(s) by mouth Once a day Stop Taking cyclobenzaprine (cyclobenzaprine 10 mg oral tablet) 1 tab(s) by mouth Once a day TAKE 1 TABLET BY MOUTH EVERY DAY NEEDED FOR MUSCLE SPASM Stop Taking donepezil (donepezil 5 mg oral tablet) 1 tab(s) by mouth Daily at bedtime Stop Taking hydroCHLOROthiazide (hydroCHLOROthiazide 25 mg oral tablet) 1 tab(s) by mouth Once a day Please take this list to your next doctor s visit. Bring all medications you take, including over the counter medications, herbals and other supplements with you to your doctor s visit. Patients and families are reminded to discard old lists and to update any records with all medication providers or retail pharmacies. Additional Information VACCINATE! IT SAVES LIVES! Members of the community who have not yet received the COVID-19 vaccine and would like to receive it can visit one of [facility] vaccine clinics. There are many vaccine clinic locations within the [facility]. For locations and available times, please visit [email or web address]/. It is important to note that some COVID mobile vaccine clinics are held outdoors and may be canceled in rainy or stormy conditions. To learn more about pediatric vaccinations (ages 5-11), we invite you to visit the [facility] webpage. [email or web address]/[email or web address]-[email or web address] [email or web address].htmlTo learn more about the COVID-19 vaccine, we invite you to visit the [employer] website for a list of frequently asked questions. [email or web address]-[email or web address]-Rqxnogxsif [email or web address].pdf [facility] Patient Portal Access Instructions: Stay connected with your healthcare team and access your personal medical information anytime with the [facility] Patient Portal.If you would like a full copy of your medical records, please contact the [facility] Medical Records Department, Wednesday through Wednesday between 8a.m. and 4:30p.m. Please follow the directions below to access the portal: 1.Access the email account you provided upon registration to the [facility].2.Look for an invitation email from [facility].3.Open the email and access the invitation link: Accept Invitation to [facility]4.Fill in the required alejandro to create your account. Sign into www.[facility] [facility] with your username and password that you created in the above steps to stay up to date. You can then view a summary of results, a summary of your visits, and the ability to download your summaries to your computer or send the information securely to a physician. Remember that your healthcare information is confidential, so carefully consider who you will allow to register on the [facility] Patient Portal for access to your information. You can also access the [facility] Patient Portal on the [employer]. Simply click on Health Records under [employer] and then click on the [facility] logo. HOW TO SAFELY DISPOSE OF PRESCRIPTION MEDICATIONS Please use one of the following methods to safely dispose of your unused medications. 1.Use a drug disposal kit: the drug disposal pouch allows you to safely discard your old and unuseddrugs. Ask your nurse to give you one when you are discharged.2.Visit a local take-back location: Many local pharmacies and police departments have programs that collect old and unwanted prescriptiondrugs. Call your local pharmacy or go to http://bit.ly/7M0Ox9n to find one close to you.3.Make use of household items: Use cat litter or old coffee grounds to dispose medications if other options arenot available. Mix your drugs with these household products, seal them in an airtight container andthrow it into the garbage. Call [facility]: [phone] to be sure your drugs can be disposed of in this way. Some medicines may require a different approach.4.Never flush your medications down the toilet. IF YOU HAVE BEEN PRESCRIBED AN OPIOID FOR PAIN If you have been prescribed an opioid (such as hydrocodone, oxycodone or morphine), it is critical to understand the possible side effects and risks of opioid pain medications. Even when taken as directed, opioids can have several side effects including: Tolerance, meaning you might need to take more of a medication for the same pain relief. Nausea, vomiting and/or constipation. Sleepiness, dizziness, dry mouth, confusion, depression or itching. Physical dependence, meaning you have withdrawal symptoms when a medication is stopped, can develop within a few days. KNOW YOUR RESPONSIBILITIES It is important to know exactly how much and how often to take the opioid pain medications you are prescribed. Never take opioids in higher amounts or more often than prescribed. Do not combine opioids with alcohol or other drugs that cause drowsiness, such as benzodiazepines, also known as benzos, including diazepam and alprazolam, muscle relaxants or sleep aids. Never sell or share prescription opioids. This is illegal. Store opioids in a secure place and out of reach of others (including children, family, friends and visitors). The last page of this document has been signed and retained as a CHART COPY. Signatures Patient Education Materials Medication Leaflets My discharge plan and instructions have been reviewed and explained to me and I,CT DALTON understand my current condition and have read and understand these discharge instructions. I have received a written copy of the plan/instructions. If I have questions, I am aware that I should contact my doctor. 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 Unsteady gait (R26.81 - ICD-10-CM) 2. Dizziness (R42 - ICD-10-CM) Dizziness ([id number] - PNED) HTN - Hypertension ([id number] - PNED) Additional Orders: Ordered: atenolol 25 mg oral tablet,Dose : 25 mg = 1 tab(s), Oral, qDay, # 30 tab(s), 0 Refill(s), Pharmacy: [facility]/pharmacy #[id number], 160, cm, 12/03/21 21:46:00 EDT, Height Ordered: hydrALAZINE,Start: 12/06/21 11:21:00 EDT, Dose = 25 mg, = 1 tab(s), Oral, qDay, 12/06/21 11:21:00 EDT Hospital Course 80-year-old female with past medical history of memory impairment, hypertension, hyperlipidemia, breast cancer on anastrozole presented on 12/03 from dentist office with lightheadedness/dizziness/unsteadiness. Patient went to see her dentist for normal cleaning. CBC, BMP, LFTs, TSH, troponin, UA, CT head, chest x-ray, MRI brain, TTE, [place]- [place] unremarkable.ECG showed LBBB, no prior EKG to compare to. Carotid ultrasound with mild R ICA and LICA stenosis at 1-39%. Echocardiogram showed diastolic dysfunction. Patient was bradycardic to 50s on admission with hypertensive with systolics in 180s. Bradycardia on telemetry as well, atenolol dose decreased from 100 mg daily to 50 mg daily in the hospital. Patient is on donepezil 5 mg daily which can cause bradycardia as well. Donepezil is stopped. Patient will continue memantine. Flexeril discontinued as patient was delirious on 12/04. For hypertension patient was on atenolol 100 mg daily, hydralazine 25 mg daily, kksmninjdqublxigqnb84 mg daily, lisinopril 20 mg daily. In the hospital patient received hydralazine, lisinopril and atenolol dose was decreased from 10 mg to 50 mg. Heart rate still going into full 50s. Will discontinue atenolol. Patient did receive donepezil in the hospital, discontinued at discharge. Patient is discharged to SNF in stable condition. Discharge instruction provided to check heart rate every 8 hours for next 3 days. Allergies NKA Consults No qualifying data available. Objective Vitals and Measurements T: 36.7 C (Oral) TMIN: 36.6 C (Oral) TMAX: 36.9 C (Oral) HR: 78(Apical) RR: 17 BP: 155/82 SpO2: 100% Weight Dosing Weight: 83.8 kg (12/03/21) Dosing Weight: 83.8 kg (12/03/21) General: alert, NAD HEENT: eyes show no evidence of icterus Cardiovascular: regular rate and rhythm, no S3/S4 Respiratory: Lungs CTABL, respirations non labored Abdomen: soft, non-tender, positive bowel sounds, no organomegaly, no guarding, no rigidity Psych: cooperative Extremities: no peripheral edema Neurological: speech normal, motor strength equal and normal b/l Code Status Code Status - Ordered -- 12/03/21 21:36:00 EDT, Full Code, Constant Order Admission Date 12/03/21 Discharge Date 12/06/21 Medications Changed atenolol (atenolol 25 mg oral tablet)1 tab(s) by mouth once a day. Refills: 0. Unchanged anastrozole (anastrozole 1 mg oral tablet)1 tab(s) by mouth once a day. Refills: 1. aspirin (aspirin 325 mg oral tablet)1 tab(s) by mouth once a day. atorvastatin (atorvastatin 20 mg oral tablet)0.5 tab(s) by mouth once a day. Refills: 1. celecoxib (celecoxib 100 mg oral capsule)1 cap by mouth once a day. Refills: 1. hydrALAZINE (hydrALAZINE 25 mg oral tablet)1 tab(s) by mouth once a day. Refills: 1. lisinopril (lisinopril 20 mg oral tablet)1 tab(s) by mouth once a day. Refills: 1. memantine (memantine 5 mg oral tablet)1 tab(s) by mouth once a day. Refills: 1. Discontinued cyclobenzaprine (cyclobenzaprine 10 mg oral tablet)1 tab(s) by mouth once a day. TAKE 1 TABLET BY MOUTH EVERY DAY NEEDED FOR MUSCLE SPASM. Refills: 1. donepezil (donepezil 5 mg oral tablet)1 tab(s) by mouth daily at bedtime. Refills: 1. hydroCHLOROthiazide (hydroCHLOROthiazide 25 mg oral tablet)1 tab(s) by mouth once a day. Refills: 1. Follow Up Follow Up with ALANNA WRIGHT DO When Within 1-2 days Why: Please call the office to schedule a follow up appointment Where: [address] [place] [id number]- Follow Up Appointments No qualifying data available. Follow Up Labs/Studies Discharge Labs No Follow-up Labs Discharge Studies No Follow-up Studies Discharge Diet No qualifying data available. Discharge Activity No qualifying data available. Readmission Risk/Palliative Score No qualifying data available. Digitally Signed by CODY RILEY MD on 12/06/2021 11:43 AM [facility] [id number] Discharge summary Date of Service 12/06/21 Discharge Diagnosis 1. Unsteady gait (R26.81 - ICD-10-CM) 2. Dizziness (R42 - ICD-10-CM) Dizziness ([id number] - PNED) HTN - Hypertension ([id number] - PNED) Additional Orders: Ordered: atenolol 25 mg oral tablet,Dose : 25 mg = 1 tab(s), Oral, qDay, # 30 tab(s), 0 Refill(s), Pharmacy: [facility]/pharmacy #[id number], 160, cm, 12/03/21 21:46:00 EDT, Height Ordered: hydrALAZINE,Start: 12/06/21 11:21:00 EDT, Dose = 25 mg, = 1 tab(s), Oral, qDay, 12/06/21 11:21:00 EDT Hospital Course 80-year-old female with past medical history of memory impairment, hypertension, hyperlipidemia, breast cancer on anastrozole presented on 12/03 from dentist office with lightheadedness/dizziness/unsteadiness. Patient went to see her dentist for normal cleaning. CBC, BMP, LFTs, TSH, troponin, UA, CT head, chest x-ray, MRI brain, TTE, [place]- [place] unremarkable.ECG showed LBBB, no prior EKG to compare to. Carotid ultrasound with mild R ICA and LICA stenosis at 1-39%. Echocardiogram showed diastolic dysfunction. Patient was bradycardic to 50s on admission with hypertensive with systolics in 180s. Bradycardia on telemetry as well, atenolol dose decreased from 100 mg daily to 50 mg daily in the hospital. Patient is on donepezil 5 mg daily which can cause bradycardia as well. Donepezil is stopped. Patient will continue memantine. Flexeril discontinued as patient was delirious on 12/04. For hypertension patient was on atenolol 100 mg daily, hydralazine 25 mg daily, oxhwvutueibxswtybvw93 mg daily, lisinopril 20 mg daily. In the hospital patient received hydralazine, lisinopril and atenolol dose was decreased from 10 mg to 50 mg. Heart rate still going into full 50s. Will discontinue atenolol. Patient did receive donepezil in the hospital, discontinued at discharge. Patient is discharged to SNF in stable condition. Discharge instruction provided to check heart rate every 8 hours for next 3 days. Allergies NKA Consults No qualifying data available. Objective Vitals and Measurements T: 36.7 C (Oral) TMIN: 36.6 C (Oral) TMAX: 36.9 C (Oral) HR: 78(Apical) RR: 17 BP: 155/82 SpO2: 100% Weight Dosing Weight: 83.8 kg (12/03/21) Dosing Weight: 83.8 kg (12/03/21) General: alert, NAD HEENT: eyes show no evidence of icterus Cardiovascular: regular rate and rhythm, no S3/S4 Respiratory: Lungs CTABL, respirations non labored Abdomen: soft, non-tender, positive bowel sounds, no organomegaly, no guarding, no rigidity Psych: cooperative Extremities: no peripheral edema Neurological: speech normal, motor strength equal and normal b/l Code Status Code Status - Ordered -- 12/03/21 21:36:00 EDT, Full Code, Constant Order Admission Date 12/03/21 Discharge Date 12/06/21 Medications Changed atenolol (atenolol 25 mg oral tablet)1 tab(s) by mouth once a day. Refills: 0. Unchanged anastrozole (anastrozole 1 mg oral tablet)1 tab(s) by mouth once a day. Refills: 1. aspirin (aspirin 325 mg oral tablet)1 tab(s) by mouth once a day. atorvastatin (atorvastatin 20 mg oral tablet)0.5 tab(s) by mouth once a day. Refills: 1. celecoxib (celecoxib 100 mg oral capsule)1 cap by mouth once a day. Refills: 1. hydrALAZINE (hydrALAZINE 25 mg oral tablet)1 tab(s) by mouth once a day. Refills: 1. lisinopril (lisinopril 20 mg oral tablet)1 tab(s) by mouth once a day. Refills: 1. memantine (memantine 5 mg oral tablet)1 tab(s) by mouth once a day. Refills: 1. Discontinued cyclobenzaprine (cyclobenzaprine 10 mg oral tablet)1 tab(s) by mouth once a day. TAKE 1 TABLET BY MOUTH EVERY DAY NEEDED FOR MUSCLE SPASM. Refills: 1. donepezil (donepezil 5 mg oral tablet)1 tab(s) by mouth daily at bedtime. Refills: 1. hydroCHLOROthiazide (hydroCHLOROthiazide 25 mg oral tablet)1 tab(s) by mouth once a day. Refills: 1. Follow Up Follow Up with ALANNA WRIGHT DO When Within 1-2 days Why: Please call the office to schedule a follow up appointment Where: [address] [place] [id number]- Follow Up Appointments No qualifying data available. Follow Up Labs/Studies Discharge Labs No Follow-up Labs Discharge Studies No Follow-up Studies Discharge Diet No qualifying data available. Discharge Activity No qualifying data available. Readmission Risk/Palliative Score No qualifying data available. Digitally Signed by CODY RILEY MD on 12/06/2021 11:43 AM [facility] [id number] Note Chief Complaint Transition plan Transitional Action Points Currently is transition over to [facility] in [place] is able to accept Patient echo explained prior From family at bedside, patient remains mildly confused. Both agreeable with plan Intermittent follows as hospitalization prolongs Assessment/Plan Dizziness Lightheadedness Unsteadiness on feet Readmission Risk Points Dizziness Lightheadedness Unsteadiness on feet Confusion Age greater than 80 History of Present Illness Patient is an 81-year-old female here for dizziness, unsteadiness and hypertension. This is her only hospitalization last 12 months. Prior to her stay she lived at home with her . They only utilize 1 level of her home. No previous DME use. She was evaluated by physical and Occupational Therapy who are recommending SNF. She was excepted by [facility] in [place], will require COVID screen prior to transfer. She reports she reports today she does have family support, son does live nearby. Review of Symptoms General: Denies fever or chills HEENT: Denies blurry vision, headache, congestion Respiratory: Denies shortness of breath or cough Cardio: Denies chest pain or palpations GI: Denies abdominal pain or change in appetite Musculoskeletal: Denies injury Neuro: Denies dizziness or confusion Psych: Denies depression or anxiety Physical Exam General: No acute distress, sitting on side of bed HEENT: Oral mucosa moist, eyes following movement Skin: Scattered abrasions Extremities: No lower extremity edema, pulses present Musculoskeletal: Weakness present Neurological: No tremors or focal deficit Psych: mood cooperative Cognition: alert and oriented Vitals Signs(Last 24 hrs)__Last Charted Minimum Maximum Temp36.6(DEC 06 03:45)36.6(DEC 06 03:45)36.6(DEC 05 08:09) Heart RateL 55(DEC 06 03:45)L 55(DEC 06 03:45)74(DEC 05 08:09) Resp Rate18(DEC 06 03:45)18(DEC 05 14:26)20(DEC 05 08:09) LBM381(DEC 06 03:45)104(DEC 05 14:26)H 160(DEC 05 18:48) DBPL 53(DEC 06 03:45)L 53(DEC 05 18:48)70(DEC 05 23:53) Problem List/ Past Medical History Breast cancer Hypertension Medicare annual wellness visit, subsequent Memory impairment Mixed hyperlipidemia Osteoarthritis Postmenopausal state Right arm pain Vulvar lesion Leukoplakia of vulva Procedure/ Surgical History 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 acetaminophen: 650 mg, 2 tab(s), Oral, q4h, PRN: TEMP greater than 38.6 degrees Celsius. albuterol-ipratropium: 3 mL, Inhalation, q4hRT, PRN: Shortness of breath or wheezing. anastrozole: 1 mg, 1 tab(s), Oral, qDay. aspirin: 325 mg, 1 tab(s), Oral, qDay. atenolol: 50 mg, 1 tab(s), Oral, qDay. atorvastatin: 10 mg, 1 tab(s), Oral, qDay. celecoxib: 100 mg, 1 cap(s), Oral, qDay. donepezil: 5 mg, 1 tab(s), Oral, qHS. guaiFENesin: 200 mg, 10 mL, Oral, q4h, PRN: Cough. hydrALAZINE: 10 mg, 1 tab(s), Oral, q3h, PRN: SBP greater than 160 mm Hg. lisinopril: 40 mg, 2 tab(s), Oral, qDay. meclizine: 25 mg, 1 tab(s), Oral, TID, PRN: as needed for dizziness. melatonin: 3 mg, 1 tab(s), Oral, qHS, PRN: Sleep. memantine: 5 mg, 1 tab(s), Oral, qDay. ondansetron: 4 mg, 2 mL, IV Push, q4h, PRN: Nausea/Vomiting. polyethylene glycol 3350: 17 gram(s), 15 mL, Oral, qDay, PRN: Constipation. Prescribed anastrozole: 1 tab(s), Oral, qDay, 90 tab(s), 1 Refill(s). atenolol: 1 tab(s), Oral, qDay, 90 tab(s), 1 Refill(s). atorvastatin: 0.5 tab(s), Oral, qDay, 45 tab(s), 1 Refill(s). celecoxib: 1 cap(s), Oral, qDay, 90 cap(s), 1 Refill(s). cyclobenzaprine: 10 mg, 1 tab(s), Oral, qDay, TAKE 1 TABLET BY MOUTH EVERY DAY NEEDED FOR MUSCLE SPASM, 10 tab(s), 1 Refill(s). donepezil: 1 tab(s), Oral, qHS, 90 tab(s), 1 Refill(s). hydrALAZINE: 1 tab(s), Oral, qDay, 90 tab(s), 1 Refill(s). hydroCHLOROthiazide: 1 tab(s), Oral, qDay, 90 tab(s), 1 Refill(s). lisinopril: 1 tab(s), Oral, qDay, 90 tab(s), 1 Refill(s). memantine: 1 tab(s), Oral, qDay, 90 tab(s), 1 Refill(s). Documented aspirin: 325 mg, 1 tab(s), Oral, qDay, 30 tab(s), 0 Refill(s). Medications Inactivated in the Last 72 Hours aspirin: 324 mg, 4 tab(s), Oral, Once. atenolol: 100 mg, 2 tab(s), Oral, qDay. atenolol: 50 mg, 1 tab(s), Oral, qDay. clobetasol topical: See Instructions, APPLY TO AFFECTED AREA TWICE A DAY, 15 gram(s), 1 Refill(s). cyclobenzaprine: 10 mg, 1 tab(s), Oral, qDay, PRN: Muscle spasm. econazole topical: APPLY TO FEET AT BEDTIME. gabapentin: 300 mg, 1 cap(s), Oral, BID, Take up to 3 capsules by mouth 3 times a day as tolerated. hydrALAZINE: 25 mg, 1 tab(s), Oral, qDay. hydroCHLOROthiazide: 25 mg, 1 tab(s), Oral, qDay. lidocaine topical: 1 angelica, Topical, TID, 5 gram(s), 0 Refill(s). lisinopril: 20 mg, 1 tab(s), Oral, qDay. Allergies NKA Social Hx Alcohol Details: Use: Never. Nutrition/Health Details: Caffeine intake amount: occasional. Tobacco Details: Nicotine Use: Never (less than 100 in lifetime). Family Medical Hx Mother: High blood pressure Father: Heart attack Sister: Kidney disease Code Status Code Status - Ordered -- 12/03/21 21:36:00 EDT, Full Code, Constant Order I Gladys Betancourt LPN, am scribing for Magdalena Ashley CLEANING VALIDATION CONSULTANT, in the presence of Magdalena Ashley. I Magdalena Ashley CLEANING VALIDATION CONSULTANT, personally performed the services described in this documentation, as described by Gladys Betancourt LPN in my presence and it is both accurate and complete. This document is transcribed using voice recognition software may contain typographical errors. Digitally Signed by MAGDALENA ASHLEY on 12/06/2021 09:45 AM [facility] [id number] Note ORIGINAL EXAMINATION: TWO XRAY VIEWS OF THE CHEST 12/05/2021 3:30 pm COMPARISON: None. HISTORY: ORDERING SYSTEM PROVIDED HISTORY: Reason for Exam: Delirium evaluate for pneumonia FINDINGS: Cardiomediastinal silhouette is normal in size. No focal consolidation, pleural effusion or pneumothorax. Degenerative changes of the spine and shoulders. IMPRESSION: No focal consolidation or edema. Interpreted by: Gustabo Mcguire Preliminary Report By: Gustabo Mcguire Electronically signed By Gustabo Mcguire Dictated Date: 12/06/2021 12:05:55 AM Prelim Date: 12/06/2021 12:06:38 AM Sign Date: 12/06/2021 12:06:38 AM Ordering Provider: FRIEDA HOLLAND [facility] [id number] Note Date of Service 12/05/2021 Subjective 81-year-old history of memory impairment hypertension hyperlipidemia breast cancer presented to theED from dental appointment with acute onset lightheadedness dizziness and unsteady gait in ED patient afebrile bradycardic to 50s systolic blood pressure 180s CBC unremarkable metabolic panel notablefor BUN 25 glucose 140s UA negative, troponin negative. Patient was ambulated in the emergency roomrequired assistance which is not patient's baseline. Marcela-Hallpike was performed in ED documented asnegative. Patient was transfer from [place] to [place] for further cardiovascular work-up. Orthostatics performed and negative. On review of telemetry patient initially with episodes of bradycardia atenolol dose was decreased. MRI negative for CVA no intracranial masses. TTE normal EF no wall motion abnormalities no clinically significant valvular abnormalities no shunt. and carotid duplex no significant carotid artery disease. Patient was delirious on 12/04 UA sent negative for infection Flexeril was held. On reexamination 12/05 afternoon mental status appears at baseline. Patient's altered mental likely 2/2 Flexeril possible residual effects of dental anesthetic. PT/OT recommending placement mental status appears to have, improved significantly will have PT reevaluate patient may be able to return home. Patient seen and examined this afternoon Patient's mental status appears at baseline Patient was answering questions appropriately oriented to person place situation Patient with no further episodes of dizziness Patient is looking forward to returning home> called patient's family members for collateral called patient's Zara no answer, called patient's son Ang [phone] Who states that patient's mental status has improved drastically compared to yesterday, explained treatment plan answered all questions Review of system limited due to patient's current mental statu Objective Vitals and Measurements T: 36.9 C (Oral) TMIN: 36.4 C (Oral) TMAX: 36.9 C (Oral) HR: 63(Apical) RR: 18 BP: 104/63 SpO2: 99% Intake and Output 7AM Yesterday to 7AM Today Intake and Output (Last 24 hours) Intake Output Stool Count 0.00 Urine Count 2.00 Emesis Count 0.00 Total Summary Total Intake 0.00 Total Output 0.00 Fluid Balance 0.00 Physical Exam HEENT: No Pallor, No Icterus Cardiac: RRR, No murmur Lungs: CTA, good air entry Abdomen: Soft, Non tender Musculoskeletal: No gross joint deformities Extremities: No edema, good pulses Neurological: Alert oriented x4 speech is fluent and clear cranial nerves intact spontaneously moving limbs Skin: No rash, no nodules Weight Dosing Weight: 83.8 kg (12/03/21) Dosing Weight: 83.8 kg (12/03/21) Medications Medications (18) Active Scheduled: (9) anastrozole 1 mg tablet 1 mg 1 tab(s), Oral, qDay aspirin 325 mg tablet 325 mg 1 tab(s), Oral, qDay atenolol 50 mg tablet 50 mg 1 tab(s), Oral, qDay atorvastatin 10 mg tablet 10 mg 1 tab(s), Oral, qDay celecoxib 100 mg capsule 100 mg 1 cap(s), Oral, qDay donepezil 5 mg tablet 5 mg 1 tab(s), Oral, qHS hydralazine 25 mg Tablet 25 mg 1 tab(s), Oral, qDay lisinopril 20 mg tablet 40 mg 2 tab(s), Oral, qDay memantine 5 mg Tablet 5 mg 1 tab(s), Oral, qDay Continuous: (0) PRN: (9) acetaminophen 325 mg Tablet 650 mg 2 tab(s), Oral, q4h acetaminophen 325 mg Tablet 650 mg 2 tab(s), Oral, q4h albuterol - ipratropium 2.5 mg-0.5 mg/3 mL Inhal Dominique UD 3 mL, Inhalation, q4hRT guaifenesin 100 mg/5 mL 120 mL liquid 200 mg 10 mL, Oral, q4h hydralazine 10 mg Tablet 10 mg 1 tab(s), Oral, q3h meclizine 25 mg Tablet 25 mg 1 tab(s), Oral, TID melatonin 3 mg tablet 3 mg 1 tab(s), Oral, qHS ondansetron 2 mg/ 1 mL 2 mL INJ 4 mg 2 mL, IV Push, q4h polyethylene glycol 3350 - UD packet 17 gram(s) 15 mL, Oral, qDay Lab Results No 36 Hour Lab Data EKG No qualifying data available. Assessment/Plan 1. Unsteady gait Dizziness unsteady gait Uncontrolled hypertension Bradycardia Hyperlipidemia history of breast cancer Acute delirium Plan Patient admitted for cardiovascular work-up of acute onset lightheadedness and unsteady gait. MRI TTE carotid duplex as previously stated Plan for repeat PT evaluation in a.m. Will continue with decreased dose of atenolol increase lisinopril for uncontrolled hypertension/bradycardia Hold HCTZ mildly elevated BUN Continue home medications otherwise Acute delirium likely due to Flexeril/dental anesthetic, UA -2 view chest x-ray pending> mental status appears at baseline Orders: XR Chest 2 Views (PA & Lateral) Time Spent Greater than 35 minutes was spent reviewing chart, placing orders developing treatment plan with greater than 50% of time spent at bedside counseling/coordinating care Digitally Signed by FRIEDA HOLLAND MD on 12/05/2021 06:41 PM [facility] [id number] Note ORIGINAL EXAMINATION: TWO XRAY VIEWS OF THE CHEST 12/05/2021 3:30 pm COMPARISON: None. HISTORY: ORDERING SYSTEM PROVIDED HISTORY: Reason for Exam: Delirium evaluate for pneumonia FINDINGS: Cardiomediastinal silhouette is normal in size. No focal consolidation, pleural effusion or pneumothorax. Degenerative changes of the spine and shoulders. IMPRESSION: No focal consolidation or edema. Interpreted by: Gustabo Mcguire Preliminary Report By: Gustabo Mcguire Electronically signed By Gustabo Mcguire Dictated Date: 12/06/2021 12:05:55 AM Prelim Date: 12/06/2021 12:06:38 AM Sign Date: 12/06/2021 12:06:38 AM Ordering Provider[facility] Note ORIGINAL EXAMINATION: MR Brain with and without intravenous contrast TECHNIQUE: Multiplanar multi sequential MRI of the brain without with intravenous contrast per standard protocol. COMPARISON: CT head 12/03/2021 HISTORY: ORDERING SYSTEM PROVIDED HISTORY: Reason for Exam: Dizziness. Rule out stroke versus brain lesion FINDINGS: Parenchyma: No acute hemorrhage, infarction, mass, or abnormal enhancement is seen. The diaz-white matter junctions are maintained. Moderate central parenchymal volume loss is noted. There are no space occupying intra-axial masses or extra-axial fluid collections. Scattered FLAIR T2 hyperintensities the within the subcortical, periventricular, and deep white matter likely reflects mild to moderate chronic microvascular white matter ischemic disease. There are no hemorrhagic blood products. Ventricles: No ventricular enlargement or ventricular effacement. The ventricles and sulci are proportionally prominent. Orbits: Post bilateral lens implant surgery. Major intracranial flow voids: Preserved. Paranasal sinuses: Clear. Mastoids and middle ears: Clear. Bones: Normal. Hyperostosis frontalis interna noted. Extracranial soft tissues: Normal. Additional comment: Normal. IMPRESSION: 1. No acute intracranial pathology. 2. Moderate parenchymal volume loss and [id number] chronic microvascular white matter ischemic disease. Interpreted by: Alanna Chin MD Preliminary Report By: Alanna Chin MD Electronically signed By Alnana Chin MD Dictated Date: 12/05/2021 1:36:40 PM Prelim Date: 12/05/2021 1:40:15 PM Sign Date: 12/05/2021 1:40:15 PM Ordering Provider: [facility]10-28-2022 Note ORIGINAL EXAMINATION: MR Brain with and without intravenous contrast TECHNIQUE: Multiplanar multi sequential MRI of the brain without with intravenous contrast per standard protocol. COMPARISON: CT head 12/03/2021 HISTORY: ORDERING SYSTEM PROVIDED HISTORY: Reason for Exam: Dizziness. Rule out stroke versus brain lesion FINDINGS: Parenchyma: No acute hemorrhage, infarction, mass, or abnormal enhancement is seen. The diaz-white matter junctions are maintained. Moderate central parenchymal volume loss is noted. There are no space occupying intra-axial masses or extra-axial fluid collections. Scattered FLAIR T2 hyperintensities the within the subcortical, periventricular, and deep white matter likely reflects mild to moderate chronic microvascular white matter ischemic disease. There are no hemorrhagic blood products. Ventricles: No ventricular enlargement or ventricular effacement. The ventricles and sulci are proportionally prominent. Orbits: Post bilateral lens implant surgery. Major intracranial flow voids: Preserved. Paranasal sinuses: Clear. Mastoids and middle ears: Clear. Bones: Normal. Hyperostosis frontalis interna noted. Extracranial soft tissues: Normal. Additional comment: Normal. IMPRESSION: 1. No acute intracranial pathology. 2. Moderate parenchymal volume loss and [id number] chronic microvascular white matter ischemic disease. Interpreted by: Alanna Chin MD Preliminary Report By: Alanna Chin MD Electronically signed By Alanna Chin MD Dictated Date: 12/05/2021 1:36:40 PM Prelim Date: 12/05/2021 1:40:15 PM Sign Date: 12/05/2021 1:40:15 PM Ordering Provider: [facility]10-28-2022 Note Date 12/05/2021 Chief complaint Transition plan. Transitional action points Patient remains confused however it does appear as though family has requested home health care services. Await PT documentation Intermittent follows warranted Assessment/Plan Dizziness Lightheadedness Unsteadiness on feet Readmission Risk Points Dizziness Lightheadedness Unsteadiness on feet Confusion Age greater than 80 History of present illness 81-year-old female admitted for dizziness, unsteadiness and hypertension. Patient has had no hospitalizations in the last year. Patient is from home with her , stays on 1 level, no DME. Physical therapy notes on 12/04 recommending SNF. resident services manager notes on 12/04 patient remains confused.Left message for to discuss further planning, waiting for return phone call. Review of symptoms General: denies fever chills HEENT: denies blurry vision, headache, congestion Respiratory: denies shortness of breath or cough Cardio: denies chest pain or palpitations GI: denies abdominal pain or change in appetite Musculoskeletal: denies injury Neuro: Denies dizziness Psych: denies depression or anxiety Physical exam General: no acute distress HEENT: oral mucosa moist, eyes following movement Musculoskeletal: Weakness present Neurological: No tremors or focal deficit Psych: Mood cooperative, confused Vital signs No qualifying data available. 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 acetaminophen: 650 mg, 2 tab(s), Oral, q4h, PRN: TEMP greater than 38.6 degrees Celsius. albuterol-ipratropium: 3 mL, Inhalation, q4hRT, PRN: Shortness of breath or wheezing. anastrozole: 1 mg, 1 tab(s), Oral, qDay. aspirin: 325 mg, 1 tab(s), Oral, qDay. atenolol: 50 mg, 1 tab(s), Oral, qDay. atorvastatin: 10 mg, 1 tab(s), Oral, qDay. celecoxib: 100 mg, 1 cap(s), Oral, qDay. donepezil: 5 mg, 1 tab(s), Oral, qHS. guaiFENesin: 200 mg, 10 mL, Oral, q4h, PRN: Cough. hydrALAZINE: 25 mg, 1 tab(s), Oral, qDay. hydrALAZINE: 10 mg, 1 tab(s), Oral, q3h, PRN: SBP greater than 160 mm Hg. lisinopril: 40 mg, 2 tab(s), Oral, qDay. meclizine: 25 mg, 1 tab(s), Oral, TID, PRN: as needed for dizziness. melatonin: 3 mg, 1 tab(s), Oral, qHS, PRN: Sleep. memantine: 5 mg, 1 tab(s), Oral, qDay. ondansetron: 4 mg, 2 mL, IV Push, q4h, PRN: Nausea/Vomiting. polyethylene glycol 3350: 17 gram(s), 15 mL, Oral, qDay, PRN: Constipation. Prescribed anastrozole: 1 tab(s), Oral, qDay, 90 tab(s), 1 Refill(s). atenolol: 1 tab(s), Oral, qDay, 90 tab(s), 1 Refill(s). atorvastatin: 0.5 tab(s), Oral, qDay, 45 tab(s), 1 Refill(s). celecoxib: 1 cap(s), Oral, qDay, 90 cap(s), 1 Refill(s). cyclobenzaprine: 10 mg, 1 tab(s), Oral, qDay, TAKE 1 TABLET BY MOUTH EVERY DAY NEEDED FOR MUSCLE SPASM, 10 tab(s), 1 Refill(s). donepezil: 1 tab(s), Oral, qHS, 90 tab(s), 1 Refill(s). hydrALAZINE: 1 tab(s), Oral, qDay, 90 tab(s), 1 Refill(s). hydroCHLOROthiazide: 1 tab(s), Oral, qDay, 90 tab(s), 1 Refill(s). lisinopril: 1 tab(s), Oral, qDay, 90 tab(s), 1 Refill(s). memantine: 1 tab(s), Oral, qDay, 90 tab(s), 1 Refill(s). Documented aspirin: 325 mg, 1 tab(s), Oral, qDay, 30 tab(s), 0 Refill(s). Suspended cyclobenzaprine: 10 mg, 1 tab(s), Oral, qDay, PRN: Muscle spasm. Medications Inactivated in the Last 72 Hours aspirin: 324 mg, 4 tab(s), Oral, Once. atenolol: 100 mg, 2 tab(s), Oral, qDay. atenolol: 50 mg, 1 tab(s), Oral, qDay. clobetasol topical: See Instructions, APPLY TO AFFECTED AREA TWICE A DAY, 15 gram(s), 1 Refill(s). econazole topical: APPLY TO FEET AT BEDTIME. gabapentin: 300 mg, 1 cap(s), Oral, BID, Take up to 3 capsules by mouth 3 times a day as tolerated. hydroCHLOROthiazide: 25 mg, 1 tab(s), Oral, qDay. lidocaine topical: 1 angelica, Topical, TID, 5 gram(s), 0 Refill(s). lisinopril: 20 mg, 1 tab(s), Oral, qDay. Allergies ALLERGIES Social history Alcohol Details: Use: Never. Nutrition/Health Details: Caffeine intake amount: occasional. Tobacco Details: Nicotine Use: Never (less than 100 in lifetime). Family medical history Mother: High blood pressure Father: Heart attack Sister: Kidney disease Code Status Code Status - Ordered -- 12/03/21 21:36:00 EDT, Full Code, Constant Order I, Magdalena ARELLANO, personally performed the services described in this documentation, as scribed by, Marychuy Langston RN in my presence and it is both accurate and complete. Digitally Signed by MAGDALENA ASHLEY on 12/05/2021 06:42 PM [facility] [id number] Note Date of Service 12/04/2021` Chief Complaint Lightheadedness unsteady gait Subjective 81-year-old history of memory impairment hypertension hyperlipidemia breast cancer presented to theED from dental appointment with acute onset lightheadedness dizziness and unsteady gait in ED patient afebrile bradycardic to 50s systolic blood pressure 180s CBC unremarkable metabolic panel notablefor BUN 25 glucose 140s UA negative, troponin negative. Patient was ambulated in the emergency roomrequired assistance which is not patient's baseline. Marcela-Hallpike was performed in ED documented asnegative. Patient was transfer from [place] to [place] for further cardiovascular work-up. Orthostatics performed and negative. On review of telemetry patient with episodes of bradycardia will decre ase atenolol. Patient ordered for MRI TTE and carotid duplex. PT/OT evaluation pending. Patient seen and examined this morning Patient does appear to have advanced dementia She does know that she is in [place] but speaks in a roundabout way about why she is here She is pleasant follows commands in no apparent distress Patient's family was not at bedside On further discussion with nursing staff patient has waxing and waning cognition> will hold off on Flexeril repeat UA urine culture Review of system limited due to patient's current mental status Attempted to call patient's spouse Zara, no answer> no outgoing message Objective Vitals and Measurements T: 36.3 C (Oral) TMIN: 36.3 C (Oral) TMAX: 36.7 C (Oral) HR: 78(Apical) RR: 18 BP: 192/77 BP: 158/73(Sitting) BP: 179/87(Standing) BP: 172/65(Supine) SpO2: 95% HT: 160 cm WT: 83.8 kg BMI: 32.73 Intake and Output 7AM Yesterday to 7AM Today Intake and Output (Last 24 hours) Intake Output Stool Count 0.00 Urine Count 7.00 Emesis Count 0.00 Total Summary Total Intake 0.00 Total Output 0.00 Fluid Balance 0.00 Physical Exam HEENT: No Pallor, No Icterus Cardiac: RRR, No murmur Lungs: CTA, good air entry Abdomen: Soft, Non tender Musculoskeletal: No joint deformities Extremities: No edema, good pulses Neurological: Oriented to self cranial nerves intact spontaneously moving limbs speech is fluent and clear Skin: No rash, no nodules Weight Dosing Weight: 83.8 kg (12/03/21) Dosing Weight: 83.8 kg (12/03/21) Medications Medications (19) Active Scheduled: (9) anastrozole 1 mg tablet 1 mg 1 tab(s), Oral, qDay aspirin 325 mg tablet 325 mg 1 tab(s), Oral, qDay atenolol 50 mg tablet 50 mg 1 tab(s), Oral, qDay atorvastatin 10 mg tablet 10 mg 1 tab(s), Oral, qDay celecoxib 100 mg capsule 100 mg 1 cap(s), Oral, qDay donepezil 5 mg tablet 5 mg 1 tab(s), Oral, qHS hydralazine 25 mg Tablet 25 mg 1 tab(s), Oral, qDay lisinopril 20 mg tablet 40 mg 2 tab(s), Oral, qDay memantine 5 mg Tablet 5 mg 1 tab(s), Oral, qDay Continuous: (0) PRN: (10) acetaminophen 325 mg Tablet 650 mg 2 tab(s), Oral, q4h acetaminophen 325 mg Tablet 650 mg 2 tab(s), Oral, q4h albuterol - ipratropium 2.5 mg-0.5 mg/3 mL Inhal Dominique UD 3 mL, Inhalation, q4hRT cyclobenzaprine 10 mg Tablet 10 mg 1 tab(s), Oral, qDay guaifenesin 100 mg/5 mL 120 mL liquid 200 mg 10 mL, Oral, q4h hydralazine 10 mg Tablet 10 mg 1 tab(s), Oral, q3h meclizine 25 mg Tablet 25 mg 1 tab(s), Oral, TID melatonin 3 mg tablet 3 mg 1 tab(s), Oral, qHS ondansetron 2 mg/ 1 mL 2 mL INJ 4 mg 2 mL, IV Push, q4h polyethylene glycol 3350 - UD packet 17 gram(s) 15 mL, Oral, qDay Lab Results 12/04 06:12 WBC: 8.3 Hgb: 10.7 L Hct: 31.2 L Platelet: 251 Neutrophil %: 80.2 H Glucose Level: 139 H Sodium Level: 138 Potassium Level: 3.6 BUN: 25.0 H Creatinine Lvl (s): 0.83 EKG EKG (ED) - Completed -- 12/03/21 14:57:00 EDT, 12/03/21 14:57:00 EDT Assessment/Plan 1. Unsteady gait Dizziness unsteady gait Uncontrolled hypertension Bradycardia Hyperlipidemia history of breast cancer ?Acute delirium Plan Patient admitted for cardiovascular work-up of acute onset lightheadedness and unsteady gait. Follow-up MRI TTE carotid duplex PT OT evaluation Will decrease dose of atenolol increase lisinopril for uncontrolled hypertension/bradycardia Hold HCTZ mildly elevated BUN Continue home medications otherwise Patient has waxing and waning cognition> will hold off on Flexeril repeat UA urine culture Orders: atenolol, Start: 12/04/21 9:00:00 EDT, Dose = 50 mg, = 1 tab(s), Oral, qDay, 0, 12/04/21 8:45:00 EDT lisinopril, Start: 12/04/21 9:00:00 EDT, Dose = 40 mg, = 2 tab(s), Oral, qDay, 0, 12/04/21 8:41:00 EDT Orthostatic Vital Signs Wheeled Walker Time Spent Greater than 35 minutes was spent reviewing chart, placing orders developing treatment plan with greater than 50% of time spent at bedside counseling/coordinating care Digitally Signed by FRIEDA HOLLAND MD on 12/04/2021 03:40 PM [facility] [id number] Note Chief Complaint Transition Plan. Transitional Action Points Explained role of IHC, flyer provided Patient reports that she is from home with spouse in a two-story, does not utilize DME and feels asthough she cares for her spouse. Patient is confused during exam, cannot remember admission to hospital and did not know where she was. Patient presented from the dentist office after an episode of lightheadedness and dizziness. Patient endorsed unsteadiness on feet Work-up thus far has been negative, PT has been consulted Follow after PT documentation available Assessment/Plan Dizziness Lightheadedness Unsteadiness on feet Readmission Risk Points Dizziness Lightheadedness Unsteadiness on feet Confusion Age greater than 80 History of Present Illness 81-year-old female here for dizziness, unsteadiness, and hypertension. She has had no hospitalizations in the past and was living home present 1 level prior admission, denies dependence on medical equipment. She does note today she is unsure where she is at and is unsure how she got here. Awaiting physical therapy recommendation. Review of Symptoms General: Denies fever chills HEENT: Denies blurry vision, headache, congestion Respiratory: Denies shortness of breath or cough Cardio: Denies chest pain or palpitations GI: Denies abdominal pain or change in appetite Musculoskeletal: Denies injury Neuro: Denies dizziness or confusion Psych: Unsure how she got to the hospital Physical exam General: No acute distress, lies in bed, debilitated HEENT: Oral mucosa moist, eyes following movement Respiratory: On room air Musculoskeletal: Weakness present Neurological: No tremors or focal deficit Psych: Mood cooperative, confused Vitals Signs(Last 24 hrs)__Last Charted Minimum Maximum Temp36.5(DEC 03 23:44)36.5(DEC 03 23:44)36.5(DEC 03 23:44) Resp Rate18(DEC 03 23:44)16(DEC 03 14:53)20(DEC 03 14:26) SBP98(DEC 03 23:44)98(DEC 03 23:44)H 187(DEC 03 16:20) DBP85(DEC 03 23:44)C 49(DEC 03 14:53)85(DEC 03 23:44) Problem List/ Past Medical History Breast cancer Hypertension Medicare annual wellness visit, subsequent Memory impairment Mixed hyperlipidemia Osteoarthritis Postmenopausal state Right arm pain Vulvar lesion Leukoplakia of vulva Procedure/ Surgical History 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 acetaminophen: 650 mg, 2 tab(s), Oral, q4h, PRN: TEMP greater than 38.6 degrees Celsius. albuterol-ipratropium: 3 mL, Inhalation, q4hRT, PRN: Shortness of breath or wheezing. anastrozole: 1 mg, 1 tab(s), Oral, qDay. aspirin: 325 mg, 1 tab(s), Oral, qDay. atenolol: 100 mg, 2 tab(s), Oral, qDay. atorvastatin: 10 mg, 1 tab(s), Oral, qDay. celecoxib: 100 mg, 1 cap(s), Oral, qDay. cyclobenzaprine: 10 mg, 1 tab(s), Oral, qDay, PRN: Muscle spasm. donepezil: 5 mg, 1 tab(s), Oral, qHS. guaiFENesin: 200 mg, 10 mL, Oral, q4h, PRN: Cough. hydrALAZINE: 25 mg, 1 tab(s), Oral, qDay. hydrALAZINE: 10 mg, 1 tab(s), Oral, q3h, PRN: SBP greater than 160 mm Hg. hydroCHLOROthiazide: 25 mg, 1 tab(s), Oral, qDay. lisinopril: 20 mg, 1 tab(s), Oral, qDay. meclizine: 25 mg, 1 tab(s), Oral, TID, PRN: as needed for dizziness. melatonin: 3 mg, 1 tab(s), Oral, qHS, PRN: Sleep. memantine: 5 mg, 1 tab(s), Oral, qDay. ondansetron: 4 mg, 2 mL, IV Push, q4h, PRN: Nausea/Vomiting. polyethylene glycol 3350: 17 gram(s), 15 mL, Oral, qDay, PRN: Constipation. Prescribed anastrozole: 1 tab(s), Oral, qDay, 90 tab(s), 1 Refill(s). atenolol: 1 tab(s), Oral, qDay, 90 tab(s), 1 Refill(s). atorvastatin: 0.5 tab(s), Oral, qDay, 45 tab(s), 1 Refill(s). celecoxib: 1 cap(s), Oral, qDay, 90 cap(s), 1 Refill(s). cyclobenzaprine: 10 mg, 1 tab(s), Oral, qDay, TAKE 1 TABLET BY MOUTH EVERY DAY NEEDED FOR MUSCLE SPASM, 10 tab(s), 1 Refill(s). donepezil: 1 tab(s), Oral, qHS, 90 tab(s), 1 Refill(s). hydrALAZINE: 1 tab(s), Oral, qDay, 90 tab(s), 1 Refill(s). hydroCHLOROthiazide: 1 tab(s), Oral, qDay, 90 tab(s), 1 Refill(s). lisinopril: 1 tab(s), Oral, qDay, 90 tab(s), 1 Refill(s). memantine: 1 tab(s), Oral, qDay, 90 tab(s), 1 Refill(s). Documented aspirin: 325 mg, 1 tab(s), Oral, qDay, 30 tab(s), 0 Refill(s). Medications Inactivated in the Last 72 Hours aspirin: 324 mg, 4 tab(s), Oral, Once. clobetasol topical: See Instructions, APPLY TO AFFECTED AREA TWICE A DAY, 15 gram(s), 1 Refill(s). econazole topical: APPLY TO FEET AT BEDTIME. gabapentin: 300 mg, 1 cap(s), Oral, BID, Take up to 3 capsules by mouth 3 times a day as tolerated. lidocaine topical: 1 angelica, Topical, TID, 5 gram(s), 0 Refill(s). Allergies NKA Social HX Alcohol Details: Use: Never. Nutrition/Health Details: Caffeine intake amount: occasional. Tobacco Details: Nicotine Use: Never (less than 100 in lifetime). Family medical HX Mother: High blood pressure Father: Heart attack Sister: Kidney disease Code Status Code Status - Ordered -- 12/03/21 21:36:00 EDT, Full Code, Constant Order I Danielle CARCAMO, am scribing for Magdalena Ashley NP, in the presence of Magdalena Ashley. I Magdalena Ashley CLEANING VALIDATION CONSULTANT, personally performed the services described in this documentation, as described by Danielle CARCAMO in my presence and it is both accurate and complete. This document transcribed using voice recognition software may contain typographical errors. Digitally Signed by MAGDALENA ASHLEY on 12/04/2021 02:59 PM [id number] History and physical note [facility] Hospitalist History and Physical Date of Admission: 12/03/2021 Chief complaint: Dizziness History of present illness: History is taken from talking with the patient. Patient was accepted asa transfer from [facility] emergency department by my colleague. Patient has a past medical history of memory impairment, hypertension, hyperlipidemia, breast cancer. Patient presented from dentist office to the emergency department after she had an episode of lightheadedness and dizziness. Patient reports that she was at the dentist office to get a normal cleaning when suddenly she started feeling very lightheaded and dizzy. She feels unsteady on her feet due to lightheadedness and dizziness. Denies chest pain or shortness of breath. Denies fevers, chills or n ight sweats. Denies slurred speech or facial droop. Denies headache or vision changes. Denies any focal neurologic deficits in the upper or lower extremities. Due to having ongoing unsteadiness on her feet as well as dizziness she was sent here for further evaluation. Otherwise no concerning finding on BMP Troponin less than 0.05 WBC 11.4 hemoglobin 10.0 which is around her baseline Urinalysis not concerning for infection CT head without contrast did not show any acute intracranial abnormality EKG showed sinus rhythm with left bundle branch block Prior to transfer the patient was given aspirin. Since presenting to the emergency department the patient has been afebrile, blood pressure 187/49, 96% room air. 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 Family history: Mother: High blood pressure Father: Heart attack Sister: Kidney disease Social history: Denies smoking cigarettes or alcohol consumption Medications: Home Medications (15) Active, medications were not verified by pharmacy at the time of this dictation anastrozole 1 mg oral tablet 1 tab(s), Oral, qDay aspirin 325 mg oral tablet 325 mg = 1 tab(s), Oral, qDay atenolol 100 mg oral tablet 1 tab(s), Oral, qDay atorvastatin 20 mg oral tablet 0.5 tab(s), Oral, qDay celecoxib 100 mg oral capsule 1 cap(s), Oral, qDay clobetasol 0.05% topical ointment See Instructions cyclobenzaprine 10 mg oral tablet 10 mg = 1 tab(s), Oral, qDay donepezil 5 mg oral tablet 1 tab(s), Oral, qHS Econazole Nitrate 1% topical cream gabapentin 300 mg oral capsule 300 mg = 1 cap(s), Oral, BID hydrALAZINE 25 mg oral tablet 1 tab(s), Oral, qDay hydroCHLOROthiazide 25 mg oral tablet 1 tab(s), Oral, qDay lidocaine 4% topical cream 1 angelica, Topical, TID lisinopril 20 mg oral tablet 1 tab(s), Oral, qDay memantine 5 mg oral tablet 1 tab(s), Oral, qDay Allergies: NKA Review of systems: See HPI for pertinent positives and negatives. All other review of systems have been reviewed and they are negative. Vitals Signs(Last 24 hrs)__Last Charted Minimum Maximum Resp Rate18(DEC 03 21:30)16(DEC 03 14:53)20(DEC 03 14:26) [id number](DEC 03 21:30)136(DEC 03 21:30)H 187(DEC 03 16:20) DBPL 58(DEC 03 21:30)C 49(DEC 03 14:53)62(DEC 03 19:49) Physical examination: HEENT: No Pallor, No Icterus Cardiac: RRR, No murmur Lungs: CTA, good air entry Abdomen: Soft Non tender Musculoskeletal: No joint pains or swelling Extremities: No edema, good pulses Neurological: Alert, no deficits Skin: No rash, no nodules Labs: Perf Loc - POCT: Tested at AM (12/03/21 16:12:00) Perf Loc - POCT: Tested at AM (12/03/21 15:19:00) Performing Instrument - POCT: CLINITEK (12/03/21 16:12:00) Performing Instrument - POCT: TRIAGE1 (12/03/21 15:19:00) Sodium - POC: 142 mEq/L (12/03/21 15:03:00) Potassium - POC: 3.6 mEq/L (12/03/21 15:03:00) Chloride - POC: 108 mEq/L (12/03/21 15:03:00) Calcium Level Ionized (POC): 1.29 mmol/L (12/03/21 15:03:00) Glucose - POC: 148 mg/dL High (12/03/21 15:03:00) CO2 (POC): 26 mEq/L (12/03/21 15:03:00) Electrolyte Balance (POC): 9 mEq/L (12/03/21 15:03:00) BUN (POC): 32 mg/dL High (12/03/21 15:03:00) Creatinine (POC): 0.76 mg/dL (12/03/21 15:03:00) BUN/Creatinine Ratio (POC): 41.6 ratio High (12/03/21 15:03:00) Est GFR (POC): >60 (12/03/21 15:03:00) Est GFR Non- (POC): >60 (12/03/21 15:03:00) Troponin I (POC): <0.05 (12/03/21 15:19:00) WBC (POC): 11.42 10^3/mcL High (12/03/21 14:53:00) RBC (POC): 3.61 10^6/mcL Low (12/03/21 14:53:00) Hemoglobin (POC): 10 G/dL Low (12/03/21 14:53:00) Hematocrit (POC): 31 % Low (12/03/21 14:53:00) MCV (POC): 85.9 fL (12/03/21 14:53:00) MCH (POC): 27.7 pg (12/03/21 14:53:00) MCHC (POC): 32.3 G/dL (12/03/21 14:53:00) RDW (POC): 13.7 % (12/03/21 14:53:00) Platelet (POC): 225 10^3/mcL (12/03/21 14:53:00) MPV (POC): 9.4 fL (12/03/21 14:53:00) Neutrophil % (POC): 81.5 % High (12/03/21 14:53:00) Lymphocyte % (POC): 12.6 % Low (12/03/21 14:53:00) Monocyte % (POC): 4.6 % (12/03/21 14:53:00) Eosinophil % (POC): 0.6 % (12/03/21 14:53:00) Basophil % (POC): 0.4 % (12/03/21 14:53:00) Immature Granulocyte (POC): 0.3 % (12/03/21 14:53:00) Neutrophil, Absolute (POC): 9.3 10^3/mcL High (12/03/21 14:53:00) Lymphocyte, Absolute (POC): 1.44 10^3/mcL (12/03/21 14:53:00) Monocyte, Absolute (POC): 0.53 10^3/mcL (12/03/21 14:53:00) Eosinophil, Absolute (POC): 0.07 10^3/mcL (12/03/21 14:53:00) Basophil, Absolute (POC): 0.05 10^3/mcL (12/03/21 14:53:00) Imm Granulocyte, Absolute (POC): 0.03 10^3/mcL (12/03/21 14:53:00) Urine Color (POC): Light yellow (12/03/21 16:12:00) Urine Appearance (POC): Clear (12/03/21 16:12:00) Urine Specific [place] (POC): <=1.005 Abnormal (12/03/21 16:12:00) Urine Glucose (POC): Negative.1 (12/03/21 16:12:00) Urine Bilirubin (POC): Negative. (12/03/21 16:12:00) Urine Ketones (POC): Negative. (12/03/21 16:12:00) Urine Blood (POC): Negative. (12/03/21 16:12:00) Urine pH (POC): 6.0 (12/03/21 16:12:00) Urine Protein (POC): Negative. (12/03/21 16:12:00) Urine Urobilinogen (POC): 0.2 (12/03/21 16:12:00) Urine Nitrite (POC): Negative.1 (12/03/21 16:12:00) Urine Leukocyte Esterase (POC): Negative.1 (12/03/21 16:12:00) No qualifying data available. Assessment and plan: Patient was accepted as a transfer from [facility] emergency department by my colleague on 12/03/2021 due to having dizziness. Dizziness and unsteadiness with ambulation most likely secondary to vertigo. Does not seem to be cardiac or stroke related. However we will get an MRI brain to rule out stroke versus brain lesion as she does have a history of breast cancer. We will also get an echocardiogram. Will be on heart monitor. We will consult physical therapy for vestibular therapy. Poorly controlled hypertension. Continue home medications. As needed hydralazine. Chronic anemia, stable Memory impairment. Continue medications Hyperlipidemia. Continue medications History of breast cancer. Continue home medications Prophylaxis SCDs CODE STATUS full code Digitally Signed by ANA WILSON MD on 12/03/2021 09:55 PM [facility] [id number] Note ORIGINAL EXAMINATION: CT OF THE HEAD WITHOUT CONTRAST 12/03/2021 3:35 pm TECHNIQUE: CT of the head was performed without the administration of intravenous contrast. Automated exposure control, iterative reconstruction, and/or weight based adjustment of the mA/kV was utilized to reduce the radiation dose to as low as reasonably achievable. COMPARISON: None. HISTORY: ORDERING SYSTEM PROVIDED HISTORY: Reason for Exam: dizziness, confusion pain FINDINGS: BRAIN/VENTRICLES: No evidence of acute intracranial hemorrhage, mass effect, midline shift, hydrocephalus, or acute large territorial infarction is identified. Scattered white matter hypodensities are nonspecific but statistically most consistent with mild chronic microvascular angiopathy. The ventricles are mildly enlarged with commensurate enlargement of the sulci most consistent with mild age-related volume loss. Carotid siphon calcifications are present. ORBITS: The visualized portion of the orbits demonstrate no acute abnormality. SINUSES: The visualized paranasal sinuses and mastoid air cells are clear. SOFT TISSUES/SKULL: No acute abnormality of the visualized skull or soft tissues. Mild hyperostosis frontalis interna. IMPRESSION: No acute intracranial abnormality. Mild chronic microvascular angiopathy and volume loss. Interpreted by: Tristen Sandhu Preliminary Report By: Tristen Sandhu Electronically signed By Tristen Sandhu Dictated Date: 12/03/2021 4:00:37 PM Prelim Date: 12/03/2021 4:02:30 PM Sign Date: 12/03/2021 4:02:30 PM Ordering Provider: [facility]10-26-2022 Note ORIGINAL EXAMINATION: CT OF THE HEAD WITHOUT CONTRAST 12/03/2021 3:35 pm TECHNIQUE: CT of the head was performed without the administration of intravenous contrast. Automated exposure control, iterative reconstruction, and/or weight based adjustment of the mA/kV was utilized to reduce the radiation dose to as low as reasonably achievable. COMPARISON: None. HISTORY: ORDERING SYSTEM PROVIDED HISTORY: Reason for Exam: dizziness, confusion pain FINDINGS: BRAIN/VENTRICLES: No evidence of acute intracranial hemorrhage, mass effect, midline shift, hydrocephalus, or acute large territorial infarction is identified. Scattered white matter hypodensities are nonspecific but statistically most consistent with mild chronic microvascular angiopathy. The ventricles are mildly enlarged with commensurate enlargement of the sulci most consistent with mild age-related volume loss. Carotid siphon calcifications are present. ORBITS: The visualized portion of the orbits demonstrate no acute abnormality. SINUSES: The visualized paranasal sinuses and mastoid air cells are clear. SOFT TISSUES/SKULL: No acute abnormality of the visualized skull or soft tissues. Mild hyperostosis frontalis interna. IMPRESSION: No acute intracranial abnormality. Mild chronic microvascular angiopathy and volume loss. Interpreted by: Tristen Sandhu Preliminary Report By: Tristen Sandhu Electronically signed By Tristen Sandhu Dictated Date: 12/03/2021 4:00:37 PM Prelim Date: 12/03/2021 4:02:30 PM Sign Date: 12/03/2021 4:02:30 PM Ordering Provider: [facility]10-26-2022 Evaluation + Plan noteExtracted from: Title:Clinical Document Author:ANA WILSON MD Date:12/03/21 [facility] Hospitalist History and Physical Date of Admission: 12/03/2021 Chief complaint: Dizziness History of present illness: History is taken from talking with the patient. Patient was accepted as a transfer from [facility] emergency department by my colleague. Patient has a past medical history of memory impairment, hypertension, hyperlipidemia, breast cancer. Patient presented from dentist office to the emergency department after she had an episode of lightheadedness and dizziness. Patient reports that she was at the dentist office to get a normal cleaning when suddenly she started feeling very lightheaded and dizzy. She feels unsteady on her feet due to lightheadedness and dizziness. Denies chest pain or shortness of breath. Denies fevers, chills or night sweats. Denies slurred speech or facial droop. Denies headache or vision changes. Denies any focal neurologic deficits in the upper or lower extremities. Due to having ongoing unsteadiness on her feet as well as dizziness she was sent here for further evaluation. Otherwise no concerning finding on BMP Troponin less than 0.05 WBC 11.4 hemoglobin 10.0 which is around her baseline Urinalysis not concerning for infection CT head without contrast did not show any acute intracranial abnormality EKG showed sinus rhythm with left bundle branch block Prior to transfer the patient was given aspirin. Since presenting to the emergency department the patient has been afebrile, blood pressure 187/49, 96% room air. 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 Family history: Mother: High blood pressure Father: Heart attack Sister: Kidney disease Social history: Denies smoking cigarettes or alcohol consumption Medications: Home Medications (15) Active, medications were not verified by pharmacy at the time of this dictation anastrozole 1 mg oral tablet 1 tab(s), Oral, qDay aspirin 325 mg oral tablet 325 mg = 1 tab(s), Oral, qDay atenolol 100 mg oral tablet 1 tab(s), Oral, qDay atorvastatin 20 mg oral tablet 0.5 tab(s), Oral, qDay celecoxib 100 mg oral capsule 1 cap(s), Oral, qDay clobetasol 0.05% topical ointment See Instructions cyclobenzaprine 10 mg oral tablet 10 mg = 1 tab(s), Oral, qDay donepezil 5 mg oral tablet 1 tab(s), Oral, qHS Econazole Nitrate 1% topical cream gabapentin 300 mg oral capsule 300 mg = 1 cap(s), Oral, BID hydrALAZINE 25 mg oral tablet 1 tab(s), Oral, qDay hydroCHLOROthiazide 25 mg oral tablet 1 tab(s), Oral, qDay lidocaine 4% topical cream 1 angelica, Topical, TID lisinopril 20 mg oral tablet 1 tab(s), Oral, qDay memantine 5 mg oral tablet 1 tab(s), Oral, qDay Allergies: NKA Review of systems: See HPI for pertinent positives and negatives. All other review of systems have been reviewed and they are negative. Vitals Signs(Last 24 hrs)__Last Charted Minimum Maximum Resp Rate18(DEC 03 21:30)16(DEC 03 14:53)20(DEC 03 14:26) [id number](DEC 03 21:30)136(DEC 03 21:30)H 187(DEC 03 16:20) DBPL 58(DEC 03 21:30)C 49(DEC 03 14:53)62(DEC 03 19:49) Physical examination: HEENT: No Pallor, No Icterus Cardiac: RRR, No murmur Lungs: CTA, good air entry Abdomen: Soft Non tender Musculoskeletal: No joint pains or swelling Extremities: No edema, good pulses Neurological: Alert, no deficits Skin: No rash, no nodules Labs: Perf Loc - POCT: Tested at AM (12/03/21 16:12:00) Perf Loc - POCT: Tested at AM (12/03/21 15:19:00) Performing Instrument - POCT: CLINITEK (12/03/21 16:12:00) Performing Instrument - POCT: TRIAGE1 (12/03/21 15:19:00) Sodium - POC: 142 mEq/L (12/03/21 15:03:00) Potassium - POC: 3.6 mEq/L (12/03/21 15:03:00) Chloride - POC: 108 mEq/L (12/03/21 15:03:00) Calcium Level Ionized (POC): 1.29 mmol/L (12/03/21 15:03:00) Glucose - POC: 148 mg/dL High (12/03/21 15:03:00) CO2 (POC): 26 mEq/L (12/03/21 15:03:00) Electrolyte Balance (POC): 9 mEq/L (12/03/21 15:03:00) BUN (POC): 32 mg/dL High (12/03/21 15:03:00) Creatinine (POC): 0.76 mg/dL (12/03/21 15:03:00) BUN/Creatinine Ratio (POC): 41.6 ratio High (12/03/21 15:03:00) Est GFR (POC): >60 (12/03/21 15:03:00) Est GFR Non- (POC): >60 (12/03/21 15:03:00) Troponin I (POC): <0.05 (12/03/21 15:19:00) WBC (POC): 11.42 10^3/mcL High (12/03/21 14:53:00) RBC (POC): 3.61 10^6/mcL Low (12/03/21 14:53:00) Hemoglobin (POC): 10 G/dL Low (12/03/21 14:53:00) Hematocrit (POC): 31 % Low (12/03/21 14:53:00) MCV (POC): 85.9 fL (12/03/21 14:53:00) MCH (POC): 27.7 pg (12/03/21 14:53:00) MCHC (POC): 32.3 G/dL (12/03/21 14:53:00) RDW (POC): 13.7 % (12/03/21 14:53:00) Platelet (POC): 225 10^3/mcL (12/03/21 14:53:00) MPV (POC): 9.4 fL (12/03/21 14:53:00) Neutrophil % (POC): 81.5 % High (12/03/21 14:53:00) Lymphocyte % (POC): 12.6 % Low (12/03/21 14:53:00) Monocyte % (POC): 4.6 % (12/03/21 14:53:00) Eosinophil % (POC): 0.6 % (12/03/21 14:53:00) Basophil % (POC): 0.4 % (12/03/21 14:53:00) Immature Granulocyte (POC): 0.3 % (12/03/21 14:53:00) Neutrophil, Absolute (POC): 9.3 10^3/mcL High (12/03/21 14:53:00) Lymphocyte, Absolute (POC): 1.44 10^3/mcL (12/03/21 14:53:00) Monocyte, Absolute (POC): 0.53 10^3/mcL (12/03/21 14:53:00) Eosinophil, Absolute (POC): 0.07 10^3/mcL (12/03/21 14:53:00) Basophil, Absolute (POC): 0.05 10^3/mcL (12/03/21 14:53:00) Imm Granulocyte, Absolute (POC): 0.03 10^3/mcL (12/03/21 14:53:00) Urine Color (POC): Light yellow (12/03/21 16:12:00) Urine Appearance (POC): Clear (12/03/21 16:12:00) Urine Specific [place] (POC): <=1.005 Abnormal (12/03/21 16:12:00) Urine Glucose (POC): Negative.1 (12/03/21 16:12:00) Urine Bilirubin (POC): Negative. (12/03/21 16:12:00) Urine Ketones (POC): Negative. (12/03/21 16:12:00) Urine Blood (POC): Negative. (12/03/21 16:12:00) Urine pH (POC): 6.0 (12/03/21 16:12:00) Urine Protein (POC): Negative. (12/03/21 16:12:00) Urine Urobilinogen (POC): 0.2 (12/03/21 16:12:00) Urine Nitrite (POC): Negative.1 (12/03/21 16:12:00) Urine Leukocyte Esterase (POC): Negative.1 (12/03/21 16:12:00) No qualifying data available. Assessment and plan: Patient was accepted as a transfer from [facility] emergency department by my colleague on 12/03/2021 due to having dizziness. Dizziness and unsteadiness with ambulation most likely secondary to vertigo. Does not seem to be cardiac or stroke related. However we will get an MRI brain to rule out stroke versus brain lesion as she does have a history of breast cancer. We will also get an echocardiogram. Will be on heart monitor. We will consult physical therapy for vestibular therapy. Poorly controlled hypertension. Continue home medications. As needed hydralazine. Chronic anemia, stable Memory impairment. Continue medications Hyperlipidemia. Continue medications History of breast cancer. Continue home medications Prophylaxis SCDs CODE STATUS full code Future Appointments Appointment Date:12/12/2021 03:00:00 PM Scheduled Provider: Location:[facility] Appointment Type:MA Mammogram Screening Bilateral w/ Fer Future Scheduled Tests Radiology* MA Mammo Screening Bilateral w/ Fer 12/12/21 [facility] Evaluation + Plan note Future Appointments Appointment Date:05/05/2021 09:00:00 AM Scheduled Provider:ALANNA WRIGHT DO Location:[facility] Appointment Type:PC OV [facility] Rethink Booksaluation + Plan note Future Appointments Appointment Date:11/06/2021 08:30:00 AM Scheduled Provider:ALANNA WRIGHT DO Location:[facility] Appointment Type:PC Wellness Medicare with Labs Future Scheduled Tests Radiology* XR Humerus Minimum 2 Views Right 05/05/21 [facility] Evaluation + Plan note Future Appointments Appointment Date:01/15/2022 02:00:00 PM Scheduled Provider: Location:[facility] Appointment Type:MA Mammogram Screening Bilateral w/ Fer Appointment Date:02/25/2022 10:00:00 AM Scheduled Provider:LARRY THOMAS DO Location:[facility] Appointment Type:PC CLEANING VALIDATION CONSULTANT Appointment Date:03/13/2022 10:30:00 AM Scheduled Provider:ALANNA WRIGHT DO Location: [place] Appointment Type:PC OV Future Scheduled Tests Radiology* MA Mammo Screening Bilateral w/ Fer 01/15/22 [facility] Evaluation + Plan note Future Appointments Appointment Date:02/25/2022 10:00:00 AM Scheduled Provider:LARRY THOMAS DO Location:[facility] Appointment Type:PC CLEANING VALIDATION CONSULTANT Appointment Date:03/13/2022 10:30:00 AM Scheduled Provider:ALANNA WRIGHT DO Location: [place] Appointment Type:PC OV Future Scheduled Tests Radiology* US Biopsy Breast Left 1st Lesion 01/22/22 [facility] Evaluation + Plan note Future Appointments Appointment Date:03/05/2022 10:00:00 AM Scheduled Provider:LARRY THOMAS DO Location:[facility] Appointment Type:PC CLEANING VALIDATION CONSULTANT Appointment Date:03/13/2022 10:30:00 AM Scheduled Provider:ALANNA WRIGHT DO Location: [place] Appointment Type:PC OV Appointment Date:03/23/2022 01:00:00 PM Scheduled Provider: Location:[facility] Appointment Type:US Biopsy Breast Left 1st Lesion Future Scheduled Tests Radiology* US Biopsy Breast Left 1st Lesion 03/23/22 [facility] evaluation + Plan note Future Appointments Appointment Date:03/13/2022 10:30:00 AM Scheduled Provider:ALANNA WRIGHT DO Location: [place] Appointment Type:PC OV Appointment Date:03/23/2022 01:00:00 PM Scheduled Provider: Location:[facility] Appointment Type:US Biopsy Breast Left 1st Lesion Appointment Date:04/16/2022 04:30:00 PM Scheduled Provider:LARRY THOMAS DO Location:[facility] Appointment Type:PC OV Future Scheduled Tests Laboratory* Hepatic Function Panel 04/13/22 Radiology* US Biopsy Breast Left 1st Lesion 03/23/22 * US Renal 03/09/22 [facility] evaluation + Plan note Future Appointments Appointment Date:04/16/2022 04:30:00 PM Scheduled Provider:LARRY THOMAS DO Location:[facility] Appointment Type:PC OV Future Scheduled Tests Laboratory* Hepatic Function Panel 04/13/22 Radiology* US Renal 03/09/22 [facility] Evaluation + Plan note Future Appointments Appointment Date:04/15/2022 07:30:00 AM Scheduled Provider: Location:[facility] Appointment Type:US Renal Appointment Date:04/16/2022 04:30:00 PM Scheduled Provider:LARRY THOMAS DO Location:[facility] Appointment Type:PC OV Appointment Date:05/28/2022 10:00:00 AM Scheduled Provider:ANISA GOMEZ MD Location:[facility] Appointment Type:BS CLEANING VALIDATION CONSULTANT Future Scheduled Tests Radiology* US Renal 04/15/22 [facility] Evaluation + Plan note Future Appointments Appointment Date:04/16/2022 04:30:00 PM Scheduled Provider:LARRY THOMAS DO Location:[facility] Appointment Type:PC OV Appointment Date:05/28/2022 10:00:00 AM Scheduled Provider:ANISA GOMEZ MD Location:[facility] Appointment Type:BS CLEANING VALIDATION CONSULTANT [facility] Evaluation + Plan note Future Appointments Appointment Date:07/16/2022 03:30:00 PM Scheduled Provider:ANISA GOMEZ MD Location:[facility] Appointment Type:BS OV Post Op Appointment Date:09/11/2022 11:00:00 AM Scheduled Provider:LARRY THOMAS DO Location:[facility] Appointment Type:PC Wellness Medicare [facility] evaluation + Plan note Future Appointments Appointment Date:12/14/2022 10:00:00 AM Scheduled Provider: Location:[facility] Appointment Type:BD Bone Density DEXA Axial Skeleton Appointment Date:03/16/2023 10:00:00 AM Scheduled Provider:LARRY THOMAS DO Location:[facility] Appointment Type:PC OV Future Scheduled Tests Radiology* BD Bone Density DEXA Axial Skeleton 12/14/22 [facility] [facility] + Plan note Future Appointments Appointment Date:06/15/2023 10:30:00 AM Scheduled Provider:LARRY THOMAS DO Location:[facility] Appointment Type:PC OV Diagnostic Tests Pending * Methylmalonic Acid, Serum 04/07/23 [facility] Evaluation + Plan note Future Appointments Appointment Date:06/15/2023 10:30:00 AM Scheduled Provider:LARRY THOMAS DO Location:[facility] Appointment Type:PC OV [facility] Evaluation + Plan note Future Appointments Appointment Date:12/15/2023 10:00:00 AM Scheduled Provider:LARRY THOMAS DO Location:[facility] Appointment Type:PC OV [facility] Evaluation + Plan note Future Appointments Appointment Date:12/29/2023 01:30:00 PM Scheduled Provider:LARRY THOMAS DO Location:[facility] Appointment Type:PC OV Diagnostic Tests Pending * Vitamin B12 Level 12/15/23 * Folate Level 12/15/23 Future Scheduled Tests Laboratory* Calcium Level Ionized 12/15/23 * Urine Culture 12/15/23 Radiology* XR Spine Lumbar W/Obliques 4 Views 12/15/23 [facility] Evaluation + Plan note Future Appointments Appointment Date:12/29/2023 01:30:00 PM Scheduled Provider:LARRY THOMAS DO Location:[facility] Appointment Type:PC OV Future Scheduled Tests Laboratory* Calcium Level Ionized 12/15/23 Radiology* XR Chest 2 Views (PA & Lateral) 12/19/23 * XR Spine Lumbar W/Obliques 4 Views 12/15/23 [facility] Evaluation + Plan note Future Appointments Appointment Date:12/29/2023 01:30:00 PM Scheduled Provider:LARRY THOMAS DO Location:[facility] Appointment Type:PC OV Future Scheduled Tests Laboratory* Calcium Level Ionized 12/15/23 [facility] Evaluation + Plan note Future Appointments Appointment Date:02/16/2024 09:30:00 AM Scheduled Provider:LARRY THOMAS DO Location:[facility] Appointment Type:PC OV Future Scheduled Tests Radiology* US Bladder 12/29/23 [facility] Evaluation + Plan note Future Appointments Appointment Date:02/16/2024 09:30:00 AM Scheduled Provider:LARRY THOMAS DO Location:[facility] Appointment Type:PC OV [facility] Evaluation note* Diagnosis Abnormal ultrasound of breast Other (abnormal) findings on radiological examination of breast History of left breast cancer documented [facility] information availableWAC[facility] Work Phone: Hospital course Narrative No data available for this section [facility] Discharge instructions No data available for this section [facility] Progress note No data available for this section [facility] Reason for referral (narrative)No reason for referral information availableWACMC Healthcare System Work Phone: Chief Complaint Chief Complaint Description Start Date lower back pain Preliminary chief co mplaint data, not yet signed by the author as of Instructions Instruction Description Start Date Patient advised to follow-up with Primary Care Physician for BMI management. Advance Directives There may be information available, but it has not been provided by the sender. No Advanced Directives Records FoundNo Advanced Directives Records FoundNo Advanced Directives Records FoundNo Advanced Directives Records FoundNo Advanced Directives Records FoundNo Advanced Directives Records Found Assessments There may be information available, but it has not been provided by the sender. Review of System There may be information available, but it has not been provided by the sender. Family History There may be information available, but it has not been provided by the sender.No Family History Records FoundNo Family History Records Found No data available for this section No data available for this section No data available for this section No data available for this section No Family History Records Found No data available for this section No data available for this section No data available for this section No data available for this section No data available for this section No data available for this section No data available for this section No data available for this section No data available for this section No Family History Records FoundNo Family History Records FoundNo Family History Records Found History of Present Illness There may be information available, but it has not been provided by the sender. Summary Purpose Chief Complaint and Reason for Visit Chief Complaint Admit Date ADMISSION EXAM CLEANING VALIDATION CONSULTANT February 24, 2024 3 :20pm [facility] WORK February 28, 2024 5:00am ADMISSION EXAM February 29, 2024 1 1:54am [facility] WORK March 27 5:00am LABWORK April 03, 2024 5:00am NEW CONCERN April 03, 2024 2:22pm LABWORK May 01, 2024 5:0 0am Chief Complaint Admit Date ADMISSION EXAM CLEANING VALIDATION CONSULTANT February 24, 2024 3 :20pm [facility] LAB WORK February 28, 2024 5:00am ADMISSION EXAM February 29, 2024 1 1:54am [facility] LAB WORK March 27 5:00am LABWORK April 03, 2024 5:00am NEW CONCERN April 03, 2024 2:22pm MONTHLY EXAM April 11, 2024 5:02 pm NEW CONCERN April 26, 2024 6:3 9pm LABWORK May 01, 2024 5:0 0am [facility] LAB WORK May 15, 2024 4: 00am Chief Complaint Admit Date ADMISSION EXAM CLEANING VALIDATION CONSULTANT February 24, 2024 3 :20pm [facility] LAB WORK February 28, 2024 5:00am ADMISSION EXAM February 29, 2024 1 1:54am [facility] LAB WORK March 27 5:00am LABWORK April 03, 2024 5:00am NEW CONCERN April 03, 2024 2:22pm MONTHLY EXAM April 11, 2024 5:02 pm NEW CONCERN April 26, 2024 6:3 9pm LABWORK May 01, 2024 5:0 0am [facility] LAB WORK May 15, 2024 4: 00am LABWORK May 29, 2024 5:0 0am Chief Complaint Admit Date ADMISSION EXAM CLEANING VALIDATION CONSULTANT February 24, 2024 3 :20pm [facility] LAB WORK February 28, 2024 5:00am ADMISSION EXAM February 29, 2024 1 1:54am [facility] LAB WORK March 27 5:00am LABWORK April 03, 2024 5:00am NEW CONCERN April 03, 2024 2:22pm MONTHLY EXAM April 11, 2024 5:02 pm NEW CONCERN April 26, 2024 6:3 9pm LABWORK May 01, 2024 5:0 0am [facility] LAB WORK May 15, 2024 4: 00am [facility] LAB WORK May 24, 2024 5 :00am LABWORK May 29, 2024 5:0 0am Additional Source Comments Reason for Visit (unrecogniz ed section and content) Reason For Visit Description Follow-up by complaint Preliminary reason f or visit data, not yet signed by the author as of lower back pain Reason Comments Consult Left breast consult Reason Comments Request for medical records INFORMATION SOURCE (unrecogn ized section and content) DATE CREATED AUTHOR 03/11/2018 [facility] DATE CREATED AUTHOR AUTHOR'S ORGANIZ ATION 06/04/2022 [facility] DATE CREATED AUTHOR AUTHOR'S ORGANIZ ATION 07/09/2023 [facility] ([place]) DATE CREATED AUTHOR AUTHOR'S ORGANIZ ATION 02/24/2024 [facility] DATE CREATED AUTHOR AUTHOR'S ORGANIZ ATION 03/28/2024 [facility] DATE CREATED AUTHOR AUTHOR'S ORGANIZ ATION 07/13/2024 [facility] Care Team (unrecognized sect ion and content) Care Team Personnel Name: ALANNA WRIGHT DO Position: P4 Physician - Primary Care Member Role: Primary Care Physician Address: Address: [address] [place] [address] Name: Venkata Alegria RN Position: ED RN Member Role: ED RN Name: BLANCA ARRIETA DO Position: P4 ED Physician II Member Role: ED Physician Address: Address: [address] [place], [place] [address] Care Team Related Persons Name: SHA ZARA Address: Home [address], [place] [id number] Care Team Personnel Name: ALANNA WRIGHT DO Position: P4 Physician - Primary Care Member Role: Primary Care Physician Address: Address: [address] [place] [address] [place] Name: Danette Busch RN Position: AO RN Member Role: RN Name: INES DENNIS MD Position: ED Physician Member Role: Attending Physician Address: Address: [facility] [address] [place] [address]- [place] Care Team Related Persons Name: ZARA DALTON Address: Home [address] [place], [place] [phone] [place] Care Team Personnel Name: ALANNA WRIGHT DO Position: P4 Physician - Primary Care Member Role: Primary Care Physician Address: Address: [address] [place] [address]- [place] Care Team Related Persons Name: ZARA DALTON Address: Home [address] [place], [place] [phone] [place] Care Team Personnel Name: LARRY THOMAS DO Position: P4 Physician - Primary Care Member Role: Primary Care Physician Address: Address: [address] [place] [address] [place] Care Team Related Persons Name: ZARA DALTON Address: Home [address] [place], [place] [id number] [place] Care Team Personnel Name: LARRY THOMAS DO Position: P4 Physician - Primary Care Member Role: Primary Care Physician Address: Address: [address] [place] [address] [place] Care Team Related Persons Name: ZARA DALTON Address: Home [address] [place], [place] [phone] [place] Care Team Personnel Name: LARRY THOMAS DO Position: P4 Physician - Primary Care Member Role: Primary Care Physician Address: Address: [address] [place] [address] [place] Care Team Related Persons Name: ZARA DALTON Address: Home [address] [place], [place] [phone] [place] Care Team Personnel Name: LARRY THOMAS DO Position: P4 Physician - Primary Care Member Role: Primary Care Physician Address: Address: [address] [place] [address] [place] Care Team Related Persons Name: ZARA DALTON Address: Home [address] [place], [place] [phone] [place] Care Team Personnel Name: MARTHALARRY Position: P4 Physician - Primary Care Member Role: Primary Care Physician Address: Address: [address] [place] [address] [facility] [place], [place] [address] Care Team Related Persons Name: ZARA DALTON Address: Home [address] [place], [place] [phone] [place] Source Comments (unrecognize d section and content) In the event this informatio n is protected by the Federal Confidentiality of Alcohol and Drug Abuse Patient Records regulations: The Federal rules restrict any use of the information to criminally investigate or prosecute any alcohol or drug abuse patient.[facility] HospitalIn the event this information is protected by the Federal Confidentiality of Alcohol and Drug Abuse Patient Records regulations: The Federal rules restrict any use of the information to criminally investigate or prosecute any alcohol or drug abuse patient.[facility] Care Teams (unrecognized sec tion and content) Franchise Development Manager Relationship Specialty Start Date End Date Larry Thomas DO [address] [place] [address] PCP - General Family Medicine 03/30/22 Lachelle Cervantes MD, [address] [facility] [place] [address] Physician Radiation Oncology 05/11/17 Kesha Davidson RN Specialty Control Panel Assembler Oncology 07/28/17 Franchise Development Manager Relationship Specialty Start Date End Date Larry Thomas, DO [address] [place] [address] PCP - General Family Medicine 03/30/22 Lachelle Cervantes MD, [address] [place] [address] Physician Radiation Oncology 05/11/17 Kesha Davidson RN Specialty Control Panel Assembler Oncology 07/28/17 Team Status: Active Member Role Status Dates Dr. Warner Leos Jr., MD Family Provider Active Dr. Warner Leos Jr., MD Primary Care Provider Active Team Status: Inactive Member Role Status Dates Dr. Warner Leos Jr., MD Primary Care Provider Active Start: February 24, 2024 End: February 24, 2024 Jane Barth NP CLEANING VALIDATION CONSULTANT-C Attending Provider Active Start: February 24, 2024 End: February 24, 2024 Team Status: Inactive Member Role Status Dates Dr. Warner Leos Jr., MD Primary Care Provider Active Start: February 28, 2024 End: February 28, 2024 Jairon TREVIÑO MD Attending Provider Active Start: February 28, 2024 End: February 28, 2024 Team Status: Inactive Member Role Status Dates Dr. Warner Leos Jr., MD Primary Care Provider Active Start: February 29, 2024 End: February 29, 2024 Dr. Jairon Medel MD Attending Provider Active Start: February 29, 2024 End: February 29, 2024 Team Status: Active Member Role Status Dates Dr. Warner Leos Jr., MD Primary Care Provider Active Start: March 27, 2024 Jairon TREVIÑO MD Attending Provider Active Start: March 27, 2024 Team Status: Active Member Role Status Dates Dr. Warner Leos Jr., MD Primary Care Provider Active Start: April 03, 2024 Jairon TREVIÑO MD Attending Provider Active Start: April 03, 2024 Team Status: Inactive Member Role Status Dates Dr. Warner Leos Jr., MD Primary Care Provider Active Start: April 03, 2024 End: April 03, 2024 Jane Barth NP CLEANING VALIDATION CONSULTANT-C Attending Provider Active Start: April 03, 2024 End: April 03, 2024 Team Status: Inactive Member Role Status Dates Dr. Warner Leos Jr., MD Primary Care Provider Active Start: May 01, 2024 End: May 01, 2024 Jairon TREVIÑO MD Attending Provider Active Start: May 01, 2024 End: May 01, 2024 Team Status: Active Member Role Status Dates Dr. Warner Leos Jr., MD Primary Care Provider Active Start: May 15, 2024 Jairon TREVIÑO MD Attending Provider Active Start: May 15, 2024 Team Status: Inactive Member Role Status Dates Dr. Warner Leos Jr., MD Primary Care Provider Active Start: April 11, 2024 End: April 11, 2024 Dr. Jairon Medel MD Attending Provider Active Start: April 11, 2024 End: April 11, 2024 Team Status: Inactive Member Role Status Dates Dr. Warner Leos Jr., MD Primary Care Provider Active Start: April 26, 2024 End: April 26, 2024 Jane Barth CLEANING VALIDATION CONSULTANT, CLEANING VALIDATION CONSULTANT-C Attending Provider Active Start: April 26, 2024 End: April 26, 2024 Team Status: Inactive Member Role Status Dates Dr. Warner Leos Jr., MD Primary Care Provider Active Start: May 15, 2024 End: May 15, 2024 Jairon TREVIÑO MD Attending Provider Active Start: May 15, 2024 End: May 15, 2024 Jairon TREVIÑO MD Referring Provider Active Start: May 15, 2024 End: May 15, 2024 Team Status: Active Member Role Status Dates Dr. Warner Leos Jr., MD Primary Care Provider Active Start: May 24, 2024 Jairon TREVIÑO MD Attending Provider Active Start: May 24, 2024 Team Status: Active Member Role Status Dates Dr. Warner Leos Jr., MD Primary Care Provider Active Start: May 29, 2024 Jairon TREVIÑO MD Attending Provider Active Start: May 29, 2024 Team Status: Inactive Member Role Status Dates Dr. Warner Leos Jr., MD Primary Care Provider Active Start: May 29, 2024 End: May 29, 2024 Jairon TREVIÑO MD Attending Provider Active Start: May 29, 2024 End: May 29, 2024 Team Status: Inactive Member Role Status Dates Dr. Warner Leos Jr., MD Primary Care Provider Active Start: May 24, 2024 End: May 24, 2024 Jairon TREVIÑO MD Attending Provider Active Start: May 24, 2024 End: May 24, 2024 Goals (unrecognized section and content) Goals may be documented in a n alternate section FOR RECORDS PERTAINING TO PATIENTS WHO ARE OR HAVE BEEN ENROLLED IN A CHEMICAL DEPENDENCY/SUBSTANCEABUSE PROGRAM, SOME INFORMATION MAY BE OMITTED. This clinical summary was aggregated from multiple sources. Caution should be exercised in using it in the provision of clinical care. This summary normalizes information from multiple sources, and as a consequence, information in this document may materially change the coding, format and clinical context of patient data. In addition, data may be omitted in some cases. CLINICAL DECISIONS SHOULD BE BASED ON THE PRIMARY CLINICAL RECORDS. [facility] [employer] provides no warranty or guarantee of the accuracy or completeness of information in this document.
--- NOTE | 2024-07-24 02:52 | ED.RN ---
Attempted to call pt's son Ang MENA to obtain consent to treat x2, no answer. Voicemail was left. Also unable to contact [place] after several phone call attempts to receive report and info on pt's code status.
--- NOTE | 2024-07-24 03:12 | ED.RN ---
attempt to call son- Ang. no answer
[2024-07-24 03:24] VITALS: BP 164/69; PULSE 52; O2SAT 100
[2024-07-24] MEDS: morphine 10 MG/ML Syringe 8 MG IM (03:40)
== END 2024-07-24 04:27 | disposition skilled nursing facility (03) ==
PROVIDERS: Emergency Provider Emergency Medicine; PCP Internal Medicine; Visit Provider Emergency Medicine
DX: S32.511A Fracture of superior rim of right pubis, initial encounter for closed fracture (principal); G21.9 Secondary parkinsonism, unspecified; G30.9 Alzheimer's disease, unspecified; F02.80 Dementia in other diseases classified elsewhere, unspecified severity, without behavioral disturbance, psychotic disturbance, mood disturbance, and anxiety; W18.30XA Fall on same level, unspecified, initial encounter; Y92.129 Unspecified place in nursing home as the place of occurrence of the external cause; I10 Essential (primary) hypertension; E78.5 Hyperlipidemia, unspecified; Z79.899 Other long term (current) drug therapy
CPT/HCPCS: 73502; 96372; 99284

== ENCOUNTER → 2024-08-21 05:00 | Outpatient (REF) | payer MEDICARE, OTHER, SELFPAY ==
--- OUTSIDE RECORDS SUMMARY | 2024-08-21 03:50 | XMS RPT_ITS | CCD ---
Author Organization [facility] Care Team Providers Care Dog Races Manager Name Role Phone Hardik PARKER, Carla Jeter Unavailable PAULA ALANIZ Referring Unavailable PAULA ALANIZ Referring Unavailable ALANNA WRIGHT DO Primary Care Physician MICAHAR DO, DR GAO Primary Care Physician [phone] Billy PARKER MD, Dabrandenung Unavailable Stuart RN, Kesha Unavailable Unavailable Micahar , Larry Primary Care Provider PAULA ALANIZ Attending Unavailable MICAHAR, LARRY Primary Care Unavailable ROMAR DO, DR [...] Care Unavailable MAURA PARKER, MAHAD Attending Unavailable MAHAD LORENZO MD Attending Unavailable ROMAR DO, DR GAO [...] DO, DR GAO Primary Care Unavailable FAVIO DO, SONNY Attending Unavailable ROMAR DO, DR GAO Primary [...] ROMAR DO, DR GAO Primary Care Unavailable PETALUMA GOLF COURSE SUPERINTENDENT-DOUGHNUT BATTER MIXER, ELDA Admitting Unavail able ESPERANZA HOOVER MD Attending Unavailable ROMAR DO, DR GAO Primary Care Unavailable ROMAR DO, DR GAO Attending Unavailable ROMAR DO, DR GAO Primary Care Unavailable ROMAR DO, DR GAO Attending Unavailable ROMAR DO, DR GAO Primary Care Unavailable ROMAR DO, DR GAO Primary Care Unavailable ROMAR DO, DR GAO Attending Unavailable Deric PARKER, Dr. Hylton Primary Care Provider Lary PIPE FITTER HELPER-C, Jane Attending Provider Jairon Medel MD Attending Provider UnavailDr. Jairon Morris MD Attending Provider Jairon Medel MD Referring Provider UnavailDr. Warner Norton MD Primary Care Provider [phone] Jairon Medel MD Attending Provider Unavailsteffany Barth PIPE FITTER HELPER-C, Jane Attending Provider Gianfranco PARKER, Dr. De La O Attending Provider Dr. Jairon Medel MD Primary Care Provider Dr. Jean Claude Harry MD Emergency Provider [phone] Deric PARKER, Dr. Hylton Primary Care Provider Jairon Medel MD Attending Provider UnavailDr. Jairon Morris MD Primary Care Provider Deric Rodriguez, Warnre Primary Care Unavailable Jairon Hahn Attending Unavailthea Leos Jr., Warner Primary Care Unavailable Jairon Hahn Attending Unavailthea Leos Jr., Warner Primary Care Unavailable Jairon Hahn Referring Unavailabl e Oleghe OLS, Efewongbe Attending UnavailJane Barrera Attending Unavailable Oleghe, Efewongbe Primary Care Unavailable Oleghe, Efewongbe Attending Unavailable Deric Rodriguez, Warner Primary Care Unavailable Deric Rodriguez, Warner Primary Care Unavailable Jane Barth Attending Unavailable Jane Barth Attending Unavailable Deric Rodriguez, Warner Primary Care Unavailable Deric Parisi., Warner Primary Care Unavailable Olejenifere, Efewongbe Attending Unavailable Deric Parisi., Warner Primary Care Unavailable Jane Barth Attending Unavailable Oleghe, Efewongbe Primary Care Unavailable Lary, Jane Attending Unavailable Deric Jr., Warner Primary Care Unavailable Oleghe OLS, Efewongbe Attending Unavailthea Leos Jr., Warner Primary Care Unavailable Oleghe OLS, Efewongbe Attending UnavailJean Claude Medrano Attending Unavailable Oleghe, Efewongbe Primary Care Unavailable Deric Rodriguez, Warner Primary Care Unavailable Oleghe OLS, Efewongbe Attending Unavailthea Leos Jr., Warner Primary Care Unavailable Oleghe OLS, Efewongbe Attending Unavailthea Leos Jr., Warner Primary Care Unavailable Oleghe OLS, Efewongbe Attending Unavailabl e Oleghe OLS, Efewongbe Referring Unavailabl e Allergies Allergy Classification Reported Allergen(s) Allergy Type Date of Onset Reaction(s) Facility (1 source) Sulfacetamide Drug Allergy 4 rash [facility] Work Phone: (10 sources) Sulfonamides (Antibiotic); Translations: [SULFA (SULFONAMIDE ANTIBIOTICS)] Propensity to adverse reactions to drug (disorder) 8 Intolerance [facility] Other [place] [facility] Medications Current Medications Medication Drug Class(es) Dates Sig (Normalized) Sig (Original) acetaminophen 500 mg oral tablet (14 sources) Start: 06-27-2014 take 1 tablet by mouth once daily as needed for pain Acetaminophen (Tylenol Extra Strength) 500 MG tablet Active 500 mg PO DAILY as needed for fever or pain April 20, 2017 12:00am alendronic acid 70 mg oral tablet (13 sources) Bisphosphonate Start: 07-24-2024 take 1 tablet by mouth every week Alendronate 70 mg tablet Active 70 mg PO EVERY WEEK July 24, 2024 12:00am Start: 12-15-2023 End: 05-31-2024 take 6-8 [oz_av] by mouth once daily alendronate 70 mg oral tablet Dose : 70 mg = 1 tab(s), Oral, qWeek, with 6-8 oz plain water, at least 30 minutes before first food, beverage, or medication of the day. Sit up for at least 30 minutes after taking., # 12 tab(s), 1 Refill(s), Pharmacy: [facility]/pharmacy #[id number], 155, cm, 12/15/23 10:32:00 EST, Height, [...] taking., # 12 tab(s), 1 Refill(s), Pharmacy: [facility]/pharmacy #[id number], 153.5, cm, 06/15/23 10:26:00 EDT, Height, kg, 06/15/23 10:26:00 EDT, Dosing Weight Start Date: 06/15/23 Stop Date: 11/30/23 Status: Ordered anastrozole 1 mg oral tablet (20 sources) Aromatase Inhibitor Start: 09-28-2023 take 1 tablet by mouth once daily in the evening anastrozole 1 mg oral tablet 1 tab(s), Oral, qPM, # 90 tab(s), 0 Refill(s), Pharmacy: [facility]/pharmacy #[id number], 153.5, cm, 06/15/23 10:26:00 EDT, Height, kg, 06/15/23 10:26:00 EDT, Dosing Weight Start Date: 09/28/23 Status: Ordered Start: 03-16-2023 take 1 tablet by charles th once daily in the evening anastrozole 1 mg oral tablet 1 tab(s), Oral, qPM, # 90 tab(s), 1 Refill(s), [id number] 155.2, cm, 03/16/23 9:59:00 EST, Height, kg, 03/16/23 9:59:00 EST, Dosing Weight Start Date: 03/16/23 Status: Ordered Start: 09-30-2022 take 1 tablet by charles th once daily in the evening anastrozole 1 mg oral tablet 1 tab(s), Oral, qPM, # 90 tab(s), 1 Refill(s), [id number] 156.5, cm, 09/11/22 11:11:00 EDT, Height, kg, 09/11/22 11:11:00 EDT, Dosing Weight Start Date: 09/30/22 Status: Ordered Start: 11-21-2021 take 1 tablet by charles th once daily in the evening anastrozole 1 mg oral tablet 1 tab(s), Oral, qPM, # 90 tab(s), 1 Refill(s), Pharmacy: [id number], 154.5, cm, 11/18/21 13:32:00 EDT, Height, kg, 11/18/21 13:32:00 EDT, Dosing Weight Start Date: 11/21/21 Status: Ordered Start: 03-20-2020 End: 04-05-2021 take 1 tablet by mouth once daily anastrozole 1 mg oral tablet 1 tab(s), Oral, qDay, # 90 tab(s), 1 Refill(s), Pharmacy: [id number], 155, cm, 11/04/20 8:28:00 EDT, Height, kg, 11/11/20 8:26:00 EDT, Dosing Weight Start Date: 04/17/21 Status: Ordered Start: 01-12-2018 ARIMIDEX 1 MG TABS 1 tablet daily ANASTROZOLE [id number] Vidya Babin LPN Comment on above: TAKE 1 TABLET BY CHARLES TH EVERY DAY aspirin 81 mg delayed release oral tablet (20 sources) Platelet Aggregation Inhibitor, Nonsteroidal Anti-inflammatory Drug Start: 10-05-2023 End: 04-02-2024 aspirin 81 mg oral delayed release tablet Dose : 81 mg = 1 tab(s), Oral, qAM, do not crush or chew, # 90 tab(s), 1 Refill(s), Pharmacy: [facility]/pharmacy #[id number], 153.5, cm, 06/15/23 10:26:00 EDT, Height, kg, 06/15/23 10:26:00 EDT, Dosing Weight Start Date: 10/05/23 Stop Date: 04/02/24 Status: Ordered Start: 03-05-2022 End: 05-20-2023 aspirin 81 mg oral delayed r elease tablet Dose : 81 mg = 1 tab(s), Oral, qAM, do not crush or chew, # 90 tab(s), 3 Refill(s), Pharmacy: [facility]acy #[id number], 154.3, cm, 04/16/22 16:12:00 EST, Height, [...] qPM, # 100 tab(s), 1 Refill(s), Pharmacy: [facility]/pharmacy #[id number], 155, cm, 12/15/23 10:32:00 EST, Height, kg, 12/15/23 10:26:00 EST, Dosing Weight Start Date: 12/15/23 Stop Date: 07/02/24 Status: Ordered Quantity: 100.0 Unit: tab(s) Repeat number: 2 Start: 09-13-2023 End: 12-12-2023 atorvastatin 20 mg oral tabl et Dose : 20 mg = 1 tab(s), Oral, qPM, # 90 tab(s), 0 Refill(s), Pharmacy: [facility]acy #[id number], 153.5, cm, 06/15/23 10:26:00 EDT, Height, kg, 06/15/23 10:26:00 EDT, Dosing Weight Start Date: 09/13/23 Stop Date: 12/12/23 Status: Ordered Start: 01-29-2023 End: 07-28-2023 atorvastatin 20 mg oral tabl et Dose : 20 mg = 1 tab(s), Oral, qPM, # 90 tab(s), 1 Refill(s), [id number], 156.5, cm, 09/11/22 11:11:00 EDT, Height, kg, 09/11/22 11:11:00 EDT, Dosing Weight Start Date: 01/29/23 Stop Date: 07/28/23 Status: Ordered Start: 03-09-2022 End: 11-21-2022 atorvastatin 20 mg oral tabl et Dose : 20 mg = 1 tab(s), Oral, qPM, # 90 tab(s), 1 Refill(s), [id number], 154.3, cm, 04/16/22 16:12:00 EST, Height, kg, 04/16/22 16:12:00 EST, Dosing Weight Start Date: 05/25/22 Stop Date: 11/21/22 Status: Ordered Start: 08-22-2021 take 0.5 tablet by m outh once daily atorvastatin 20 mg oral tablet 0.5 tab(s), Oral, qDay, # 45 tab(s), 1 Refill(s), Pharmacy: [id number], 155, cm, 05/05/21 8:51:00 EDT, Height, kg, 05/05/21 8:51:00 EDT, Dosing Weight Start Date: 08/22/21 Status: Ordered Start: 11-06-2020 take 0.5 tablet by m outh once daily atorvastatin 20 mg oral tablet See Instructions, TAKE 1/2 TABLET EVERY DAY, # 45 tab(s), 1 Refill(s), [id number], 155, cm, 11/04/20 8:28:00 EDT, Height, kg, 11/04/20 8:28:00 EDT, Dosing Weight Start Date: 11/06/20 Status: Ordered Start: 04-20-2017 take 2 tablets by mo uth at bedtime Atorvastatin 10 MG tablet Active 20 mg PO AT BEDTIME April 20, 2017 12:00am Start: 10-27-2013 take 1 tablet by charles at bedtime Atorvastatin 10 MG tablet Active 10 mg PO AT BEDTIME April 20, 2017 12:00am Comment on above: Take 10 mg by mouth once daily. busPIRone hydrochloride 5 mg oral tablet (3 sources) Start: 07-24-2024 take 1 tablet by mouth twice daily Buspirone 5 mg tablet Active 5 mg PO TWICE A DAY July 24, 2024 12:00am calcium carbonate 1500 mg / cholecalciferol 800 unt oral tablet (8 sources) Vitamin D Start: 04-20-2017 Calcium Carbonate-Vitamin D3 1 EACH tablet Active 1 NMA PO DAILY April 20, 2017 12:00am Start: 04-20-2017 Calcium Carbon ate-Vitamin D3 1 EACH tablet Active 1 NMA PO THREE TIMES A DAY April 20, 2017 12:00am celecoxib 100 mg oral capsule (17 sources) Nonsteroidal Anti-inflammatory Drug Start: 08-10-2022 take 1 capsule by mouth once daily in the morning celecoxib 100 mg oral capsule 1 cap(s), Oral, qAM, # 90 cap(s), 0 Refill(s), Pharmacy: [facility] #[id number], 156.2, cm, 07/01/22 6:28:00 EDT, Height, kg, 07/01/22 6:28:00 EDT, Dosing Weight Start Date: 08/10/22 Status: Ordered Start: 12-07-2016 take 1 capsule by mo [facility] once daily in the morning celecoxib 100 mg oral capsule 1 cap(s), Oral, qAM, # 90 cap(s), 1 Refill(s), Pharmacy: [facility], 154.3, cm, 04/16/22 16:12:00 EST, Height, kg, 04/16/22 16:12:00 EST, Dosing Weight Start Date: 05/21/22 Status: Ordered Start: 10-27-2013 CELEBREX 100 M G CAPS 1-2 capsules weekly as needed CELECOXIB [id number] Vidya Babin LPN Comment on above: Take 100 mg by mouth once daily. ciclopirox 80 mg/ml topical solution (6 sources) Start: 03-05-2022 End: 01-06-2024 ciclopirox 8% topical solution Apply 1 angelica, Topical, Daily, apply to affected toenails and surrounding area once daily, remove with alcohol every 7 days prior to reapplication, Apply to: toenails, X 48 week(s), # 6.6 mL, 1 Refill(s), [id number], 154.3, cm, 03/05/22 9:44:00 EST, Height, 75.6 Start Date: 03/05/22 Stop Date: 01/06/24 Status: Ordered Clobetasol (3 sources) Corticosteroid Start: 01-20-2021 clobetasol 0.05% topical ointment See Instructions, APPLY TO AFFECTED AREA TWICE A DAY, # 15 gram(s), 1 Refill(s), Pharmacy: [id number], 155, cm, 11/04/20 8:28:00 EDT, Height, 81.2, kg, 11/11/20 8:26:00 EDT, Dosing Weight Start Date: 01/20/21 Status: Ordered Start: 07-30-2020 Temovate 0.05% topical ointment Apply 1 angelica, Topical, BID, # 15 gram(s), 0 Refill(s), [id number], [facility]int[facility], 155, cm, 07/23/20 8:15:00 EDT, Height, 86.1, kg, 07/30/20 8:40:00 EDT, Dosing Weight Start Date: 07/30/20 Status: Ordered donepezil hydrochloride 10 mg oral tablet (20 sources) Start: 07-24-2024 take 1 tablet by mouth once daily Donepezil 10 mg tablet Active 10 mg PO DAILY July 24, 2024 12:00am Start: 06-15-2023 donepezil 10 m g oral tablet Dose : 10 mg = 1 tab(s), Oral, qHS, # 30 tab(s), 0 Refill(s) Start Date: 06/15/23 Status: Ordered Quantity: 30.0 Unit: tab(s) Repeat number: 1 Start: 09-30-2022 donepezil 5 mg oral tablet Dose : 5 mg = 1 tab(s), Oral, qHS, # 90 tab(s), 1 Refill(s), [id number], 156.5, cm, 09/11/22 11:11:00 EDT, Height, kg, 09/11/22 11:11:00 EDT, Dosing Weight Start Date: 09/30/22 Status: Ordered Start: 03-17-2022 donepezil 5 mg oral tablet Dose : 5 mg = 1 tab(s), Oral, qHS, # 30 tab(s), 0 Refill(s) Start Date: 03/17/22 Status: Ordered Start: 04-21-2021 take 1 tablet by charles th once daily at bedtime donepezil 5 mg oral tablet 1 tab(s), Oral, qHS, # 90 tab(s), 1 Refill(s), Pharmacy: [id number], 155, cm, 11/04/20 8:28:00 EDT, Height, kg, 11/11/20 8:26:00 EDT, Dosing Weight Start Date: 04/21/21 Status: Ordered Start: 07-09-2020 donepezil 5 mg oral tablet Dose : 5 mg = 1 tab(s), Oral, qHS, # 30 tab(s), 0 Refill(s) Start Date: 07/09/20 Status: Ordered Econazole (2 sources) Azole Antifungal Start: 08-18-2019 Econazole Nit rate 1% topical cream APPLY TO FEET AT BEDTIME Start Date: 08/18/19 Status: Ordered escitalopram 10 mg oral tablet (3 sources) Serotonin Reuptake Inhibitor Start: 07-24-2024 take 1 tablet by mouth once daily Escitalopram Oxalate 10 mg tablet Active 10 mg PO DAILY July 24, 2024 12:00am ferrous sulfate 325 mg oral tablet (9 sources) Start: 07-24-2024 Ferrous Sulfat e 325 mg (65 mg iron) tablet Active 325 mg PO MOWEFR July 24, 2024 12:00am Start: 12-19-2023 End: 03-18-2024 ferrous sulfate 325 mg (65 m g elemental iron) oral tablet Dose : 325 mg = 1 tab(s), Oral, Mon/Wed/Fri, may take with food to minimize abdominal discomfort, # 39 tab(s), 0 Refill(s), Pharmacy: [facility]acy #[id number], 155, cm, 12/15/23 10:32:00 EST, Height, kg, 12/15/23 10:26:00 EST, Dosing Weight Start Date: 12/19/23 Stop Date: 03/18/24 Status: Ordered Quantity: 39.0 Unit: tab(s) Repeat number: 1 furosemide 20 mg oral tablet (3 sources) Loop Diuretic Start: 07-24-2024 take 1 tablet by mouth once daily Furosemide (Lasix) 20 mg tablet Active 20 mg PO DAILY July 24, 2024 12:00am Lidocaine (2 sources) Antiarrhythmic, Amide Local Anesthetic Start: 07-23-2020 lidocaine 4% topical cream Apply 1 angelica, Topical, TID, # 5 gram(s), 0 Refill(s), Pharmacy: [facility]acy #[id number], Cream, 155, cm, 07/23/20 8:15:00 EDT, Height, 85.2, kg, 07/23/20 8:15:00 EDT, Dosing Weight Start Date: 07/23/20 Status: Ordered lisinopril 20 mg oral tablet (14 sources) Angiotensin Converting Enzyme Inhibitor Start: 03-16-2023 take 1 tablet by mouth once daily in the morning lisinopril 20 mg oral tablet 1 tab(s), Oral, qAM, # 90 tab(s), 1 Refill(s), Pharmacy: [facility]/pharmacy #[id number], 155.2, cm, 03/16/23 9:59:00 EST, Height, kg, 03/16/23 9:59:00 EST, Dosing Weight Start Date: 03/16/23 Status: Ordered Start: 10-15-2022 take 1 tablet by charles th once daily in the morning lisinopril 20 mg oral tablet 1 tab(s), Oral, qAM, # 90 tab(s), 1 Refill(s), Pharmacy: [facility]acy #[id number], 156.5, cm, 09/11/22 11:11:00 EDT, Height, kg, 09/11/22 11:11:00 EDT, Dosing Weight Start Date: 10/15/22 Status: Ordered Start: 04-13-2022 take 1 tablet by charles th once daily in the morning lisinopril 20 mg oral tablet 1 tab(s), Oral, qAM, # 90 tab(s), 1 Refill(s), Pharmacy: [facility]acy #[id number], 154.3, cm, 03/17/22 9:37:00 EST, Height, kg, 03/17/22 9:37:00 EST, Dosing Weight Start Date: 04/13/22 Status: Ordered Start: 09-02-2021 take 1 tablet by charles th once daily lisinopril 20 mg oral tablet 1 tab(s), Oral, qDay, # 90 tab(s), 1 Refill(s), Pharmacy: [id number], 155, cm, 05/05/21 8:51:00 EDT, Height, kg, 05/05/21 8:51:00 EDT, Dosing Weight Start Date: 09/02/21 Status: Ordered Start: 10-22-2020 take 1 tablet by charles once daily lisinopril 20 mg oral tablet See Instructions, TAKE 1 TABLET BY MOUTH EVERY DAY, # 90 tab(s), 1 Refill(s), Pharmacy: [id number], 155, cm, 07/23/20 8:15:00 EDT, Height, kg, 07/30/20 8:40:00 EDT, Dosing Weight Start Date: 10/22/20 Status: Ordered losartan potassium 50 mg oral tablet (19 sources) Angiotensin 2 Receptor Aniyah Start: 10-27-2013 End: 07-02-2024 take 1 tablet by mouth once daily Losartan (Cozaar) 50 MG tablet Active 50 mg PO DAILY April 20, 2017 12:00am 24 hr memantine hydrochloride 28 mg extended release oral capsule (20 sources) T-jgrvuf-O-asparta te Receptor Antagonist Start: 07-24-2024 take 1 capsule by mouth once daily Memantine 28 mg capsule,sprinkle ,ER 24hr Active 28 mg PO DAILY July 24, 2024 12:00am Start: 01-18-2024 memantine 28 m g oral capsule, extended release Dose : 28 mg = 1 cap(s), Oral, qDay, per neuro, # 30 cap(s), 0 Refill(s), other reason (Rx) Start Date: 01/18/24 Status: Ordered Quantity: 30.0 Unit: cap(s) Repeat number: 1 Start: 01-29-2023 take 1 tablet by charles once daily in the morning memantine 5 mg oral tablet 1 tab(s), Oral, qAM, # 90 tab(s), 1 Refill(s), [id number] 156.5, cm, 09/11/22 11:11:00 EDT, Height, kg, 09/11/22 11:11:00 EDT, Dosing Weight Start Date: 01/29/23 Status: Ordered Start: 05-25-2022 take 1 tablet by charles th once daily in the morning memantine 5 mg oral tablet 1 tab(s), Oral, qAM, # 90 tab(s), 1 Refill(s), Pharmacy: [facility] #[id number], 154.3, cm, 04/16/22 16:12:00 EST, Height, kg, 04/16/22 16:12:00 EST, Dosing Weight Start Date: 05/25/22 Status: Ordered Start: 07-14-2021 take 1 tablet by charles th once daily memantine 5 mg oral tablet 1 tab(s), Oral, qDay, # 90 tab(s), 1 Refill(s), Pharmacy: [id number], 155, cm, 05/05/21 8:51:00 EDT, Height, kg, 05/05/21 8:51:00 EDT, Dosing Weight Start Date: 07/14/21 Status: Ordered Start: 04-15-2021 take 1 tablet by charles th once daily memantine 5 mg oral tablet 1 tab(s), Oral, qDay, # 90 tab(s), 0 Refill(s), Pharmacy: [id number], 155, cm, 11/04/20 8:28:00 EDT, Height, kg, 11/11/20 8:26:00 EDT, Dosing Weight Start Date: 04/15/21 Status: Ordered Start: 10-17-2020 take 1 tablet by charles th once daily memantine 5 mg oral tablet See Instructions, TAKE 1 TABLET BY MOUTH EVERY DAY, # 90 tab(s), 0 Refill(s), Pharmacy: [id number], 155, cm, 07/23/20 8:15:00 EDT, Height, kg, 07/30/20 8:40:00 EDT, Dosing Weight Start Date: 10/17/20 Status: Ordered Multivitamin preparation (17 sources) Start: 03-17-2022 take 1 tablet by mouth once daily Multivitamin Dose = 1 tab(s), Oral, Daily, 0 Refill(s) Start Date: 03/17/22 Status: Ordered Repeat number: 1 Start: 03-17-2022 take 1 tablet by charles th once daily Multivitamin Dose = 1 tab(s), Oral, Daily, 0 Refill(s) Start Date: 03/17/22 Status: Ordered Kqxxpouaotli-Oi-Mzvi-Mineral s (Multiple Vitamins For Women) 1 EACH tablet (8 sources) Start: 04-20-2017 take 1 tablet by mouth once daily Yoxuldapfuvi-Ta-Nrio-Minerals (Multiple Vitamins For Women) 1 EACH tablet Active 1 NMA PO DAILY April 20, 2017 12:00am mupirocin 0.02 mg/mg topical ointment (2 sources) RNA Synthet ase Inhibit or Antibac terial Start: 06-19-2022 mupirocin 2% topical ointmen t Apply 1 angelica, Topical, BID, Bilateral intranasal application twice daily x 5 days pre-surgery., Apply to: nostril, each, # 22 gram(s), 0 Refill(s), Pharmacy: [facility] #[id number], Ointment, 154.3, cm, 05/28/22 7:35:00 EDT, Height, 77 Start Date: 06/19/22 Status: Ordered nystatin [id number] unt/ml topic al cream (4 sources) Polyene Antifun gal Start: 07-24-2024 Nystatin 100,000 unit/gram cream Active 1 NMA TOPICAL TWICE DAILY NEEDED as needed for groin July 24, 2024 12:00am Start: 09-11-2022 End: 11-10-2022 nystatin 100,000 units/g top ical cream Apply 1 angelica, Topical, BID, PRN Rash, Apply to the affected area twice daily until healing complete., # 30 gram(s), 1 Refill(s), Pharmacy: [facility] #[id number], Cream, 156.5, cm, 09/11/22 11:11:00 EDT, Height, 73.1, kg, 09/11/22 11:11:00 EDT, Dosing Weight Start Date: 09/11/22 Stop Date: 10/3/23 Status: Ordered phenazopyridine hydrochloride 100 mg oral tablet (1 source) Start: 01-21-2024 End: 01-24-2024 Pyridium 100 mg oral tablet Dose : 100 mg = 1 tab(s), Oral, BID, X 3 day(s), # 6 tab(s), 0 Refill(s), 01/24/24 11:14:00 AM EST Start Date: 01/21/24 Stop Date: 01/24/24 Status: Ordered polyethylene glycol 3350 88367 mg powder for oral solution (4 sources) Osmotic Laxative Start: 07-24-2024 Polyethylene Glycol 3350 (Miralax) 17 gram/dose powder Active 17 g PO DAILY July 24, 2024 12:00am Start: 02-10-2024 MiraLax oral p owder for reconstitution Oral, Every other day, 0 Refill(s) Start Date: 02/10/24 Status: Ordered Repeat number: 1 sulfamethoxazole 800 mg / trimethoprim 160 mg oral tablet (1 source) Dihydrofolate Reductase Inhibitor Antibacterial, Sulfonamide Antimicrobial Start: 12-15-2023 End: 12-18-2023 take 1 tablet by mouth every twelve hours sulfamethoxazole-trimethoprim 800 mg-160 mg oral tablet Dose = 1 tab(s), Oral, q12h, drink plenty of fluids, X 3 day(s), # 6 tab(s), 0 Refill(s), Pharmacy: [facility] #[id number], 155, cm, 12/15/23 10:32:00 EST, Height, 68.6, kg, 12/15/23 10:26:00 EST, Dosing Weight Start Date: 12/15/23 Stop Date: 12/18/23 Status: Ordered divalproex sodium 125 mg delayed release oral tablet (7 sources) Mood Stabilizer, Anti-epileptic Agent Start: 07-24-2024 take 1 tablet by mouth at bedtime Divalproex 125 mg tablet,delayed release (DR/EC) Active 125 mg PO AT BEDTIME July 24, 2024 12:00am Start: 12-29-2023 divalproex sod ium 125 mg oral delayed release tablet Dose : 250 mg = 2 tab(s), Oral, qDay, TAKE 1 TABLET BY MOUTH TWICE A DAY Start Date: 12/29/23 Status: Ordered Repeat number: 1 Completed/Discontinued Medications Medication Drug Class(es) Dates Sig (Normalized) Sig (Original) acetaminophen 325 mg / HYDROcodone bitartrate 5 mg oral tablet (13 sources) Opioid Agonist Start: 04-27-2017 End: 07-26-2024 Hydrocodone-Acetam inophen 5-325 mg tablet Discontinued 1 {tbl} PO EVERY 6 HOURS as needed for pain 14 3 July 24, 2024 July 26, 2024 11:12am ascorbic acid 1000 mg oral tablet (2 sources) Vitamin C take 1 tablet by mouth twice daily Ascorbic Acid 1,000 mg tablet Take 1,000 mg by mouth twice daily. 0 Active Comment on above: Take 1,000 mg by charles twice daily. Atenolol (14 sources) beta-Adrenergic Aniyah Start: 12-06-2021 End: 12-06-2021 atenolol Start: 12/06/21 9:00:00 EDT, Dose = 50 mg, = 1 tab(s), Oral, 0, 12/04/21 8:45:00 EDT Start Date: 12/06/21 Stop Date: 12/06/21 Status: Completed Start: 02-26-2017 take 2 tablets by mo [facility] once daily atenolol (TENORMIN) 50 mg tablet Take 100 mg by mouth once daily. 3 02/26/2017 Active Start: 10-27-2013 End: 07-24-2024 take 1 tablet by mouth once daily Atenolol 100 MG tablet Discontinued 100 mg PO DAILY April 20, 2017 12:00am July 24, 2024 1:38am Comment on above: Take 100 mg by mouth once daily. Calcium (1 source) Phosphate Binder, Calcium Start: 014 CALCIUM 600 + D TABS 1 tablet daily CALCIUM CARB-CHOLECALCIFEROL TABS [id number] [facility] 1500 mg oral tablet (12 sources) Start: 023 End: 024 calcium (as carbonate) 600 mg oral tablet Dose : 600 mg = 1 tab(s), Oral, qDay, # 90 tab(s), 3 Refill(s), Pharmacy: [facility] #[id number], 156.5, cm, 09/11/22 11:11:00 EDT, Height, [...] on above: Take 3 tablets by mo ut once daily. cyclobenzaprine hydrochloride 10 mg oral tablet (13 sources) Muscle Relaxant Start: 014 End: take 1 tablet by mouth once daily Cyclobenzaprine 10 MG tablet Discontinued 10 mg PO DAILY April 20, 2017 12:00am July 24, 2024 1:38am Comment on above: Take 10 mg by mouth once daily as needed. 1 ml denosumab 60 mg/ml prefilled syringe (2 sources) RANK Ligand Inhibitor Start: 024 End: denosumab 60 mg/mL subcutaneous solution Dose : [...] Comment on above: Take 1 capsule by [facility] once daily. gabapentin 300 mg oral capsule (13 sources) Anti-epileptic Agent Start: 017 End: take 1 capsule by mouth twice daily Gabapentin (Neurontin) 300 MG capsule Discontinued 300 mg PO TWICE A DAY April 20, 2017 12:00am July 24, 2024 1:38am Comment on above: Take 300 mg by mouth twice daily. gabapentin 10 % cmap (2 sources) [...] qAM, # 90 tab(s), 1 Refill(s), Pharmacy: [facility] [id number], 154.5, cm, 11/18/21 13:32:00 EDT, Height, kg, 11/18/21 13:32:00 EDT, Dosing Weight Start Date: 11/21/21 Status: Ordered Comment on above: Take 25 mg by mouth once daily. hydroCHLOROthiazide 25 mg oral tablet (13 sources) Thiazide Diuretic Start: End: take 1 tablet by mouth once daily Hydrochlorothiazide 25 MG tablet Discontinued 25 mg PO DAILY April 20, 2017 12:00am July 24, 2024 1:38am Comment on above: Take 25 mg by mouth once daily. MULTIPLE VITAMIN (1 source) Start: 014 MULTIVITAMINS CAPS 1 capsule daily MULTIPLE VITAMIN [id number] [place] multivitamin tablet (2 sources) take [...] metabolism (20 sources) Mixed hyperlipidemia 08-18-2019 Chronic E Codes: Fall (3 sources) Fall; Translations: [Unspecified fall, initial encounter] 07-24-2024 Episodic Essential hypertension (16 sources) Hypertensive disorder 08-18-2019 [...] fracture of lumbar spine 12-29-2023 Episodic Other fractures (3 sources) Closed fracture of pelvis; Translations: [Fracture of unspecified parts of lumbosacral spine and pelvis, initial encounter for closed fracture] 07-24-2024 Episodic Other hereditary and degenerative nervous system conditions (1 source) Degenerative disease of nervous system, unspecified; Translations: [Degenerative disease of nervous system, unspecified] Onset: 05-25-2024 Chronic Other injuries and conditions due to external causes (1 source) Encounter for examination and observation following other accident; Translations: [Encounter for examination and observation following other accident] Onset: 07-29-2024 Episodic Other nervous system disorders (1 source) Secondary [...] unspecified; Translations: [Edema, unspecified] Onset: 05-31-2024 Episodic Screening and history of mental health and substance abuse codes (3 sources) H/O: dementia; Translations: [Personal history of other mental and behavioral disorders] 07-24-2024 Episodic Spondylosis; intervertebral disc disorders; other back [...] Test Name Value Interpretation Reference Range Facility Emergency Department Summary on 07-24-2024 Emergency Department Summary [facility] Medical Records Department [address] [place] [address] Emergency Department Summary 07/24/24 MR#: [id number] Acct: [id number] Name: CT DALTON Rep #: [id number] : 1940 83 From: Jean Claude Harry MD PCP: Dr. Jairon Medel MD Status:REG ER Location: ED HPI HPI - Fall History of Present Illness Chief Complaint: Fall Informant: patient Occured/Mechanism Occurred: Today Mechanism/Context: Yes same level fall Pain/Injury Pain Location: lower extremity Quality of Pain: Sharp Current Severity: Moderate Maximum Severity: Moderate Narrative Narrative: 83-year-old female history of dementia, breast cancer and prediabetes. Took a fall today at [facility] where she [facility]. Now having right hip pain and unable to walk on her right hip. Denies any other complaints. Denies hitting her head. Denies head or neck pain. Prior similar symptoms: No Recent Illness/Hospitalizatio n: No PFSH [facility] Medical History Malignant neoplasm of breast Prediabetes Hypertension Hyperlipemia Secondary parkinsonism Dementia AD (Alzheimer's disease) Home Medications ???Medication ???Instructions ???Recorded ???Last Taken ???Type acetaminophen 500 mg tablet 500 mg PO DAILY PRN fever or pain 04/20/17 Unknown History (Tylenol Extra Strength) atorvastatin 10 mg tablet 20 mg PO QHS 04/20/17 Unknown Hist ory calcium 600 mg (as 1 ea PO DAILY 04/20/17 Unknown His tory carbonate)-vitamin D3 20 mcg (800 unit) tablet losartan 50 mg tablet (Cozaar) 50 mg PO DAILY 04/20/17 04/27/17 0 8:00 History pfrhfuobnqbi-Xh-fqqz-m inerals 1 ea PO DAILY 04/20/17 Unknown His tory (Multiple Vitamin, Womens tablet) alendronate 70 mg tablet 70 mg PO QWEEK 07/24/24 Unknown Hi story buspirone 5 mg tablet 5 mg PO BID 07/24/24 Unknown Histo ry divalproex 125 mg tablet,delayed 125 mg PO QHS 07/24/24 Unknown His tory release donepezil 10 mg tablet 10 mg PO DAILY 07/24/24 Unknown Hi story escitalopram oxalate 10 mg tablet 10 mg PO DAILY 07/24/24 Unknown H istory ferrous sulfate 325 mg (65 mg 325 mg PO MOWEFR 07/24/24 Unknown History iron) tablet furosemide 20 mg tablet (Lasix) 20 mg PO DAILY 07/24/24 Unknown Hi story hydrocodone-acetaminop hen 5-325mg 1 tab PO Q6H PRN pain 3 days #14 07/24/24 Unknown Rx 5mg-325mg tabs memantine 28 mg capsule 28 mg PO DAILY 07/24/24 Unknown Hi story sprinkle,extended release 24hr nystatin 100,000 unit/gram topical 1 applic topical BID PRN PRN jessee in 07/24/24 Unknown History cream polyethylene glycol 3350 17 17 g PO DAILY 07/24/24 Unknown His tory gram/dose oral powder (Miralax) Allergy/AdvReac Type Severity Reaction Status Date / Time No Known Allergies Allergy Verified 07/24/24 01:25 Social History Smoking Status: Never smoker ROS ROS ED ROS Narrative Denies recent illness. Constitutional Constitutional ED: Denies chills or fever(s) Eyes Eyes: Denies blurry vision ENT ENT ED: Denies ear pain Cardiovascular Cardiovascular: Denies chest pain Respiratory/Chest Respiratory/Chest: Denies cough Gastrointestinal Gastrointestinal: Denies abdominal pain Genitourinary Genitourinary ED: Denies dysuria Musculoskeletal Musculoskeletal: Denies arthralgias Integumentary Denies abscess Neurologic Neurologic: Denies headache(s) Psychiatric Psychiatric: Denies anxiety Endocrine Endocrinology: Denies polydipsia Hematologic/Lymphatic Hematologic/Lymphatic: Denies easy bleeding or easy bruising Allergic/Immunologic Allergic/Immunologic ED: Denies mouth swelling or tongue swelling EXAM Physical Exam Narrative Exam Narrative: 83-year-old female sitting up in bed. Vital signs stable afebrile. H EENT exam pupils round react light. Mytrex membranes. No trauma to her head or scalp. Nontender no hematoma. Neck and spine nontender. Back and spine nontender. No bruising. Lungs clear to auscultation bilaterally. Heart regular rhythm rate about 60 no murmur. Chest wall ribs nontender. Abdomen soft nontender. Pelvic girdle intact. Her right leg is slightly shortened and rotated externally. She has pain with active and passive movement of the right hip. The distal femur, knee, right lower leg ankle and foot are nontender. Normal dorsi plantarflexion. Left lower extremity and left hip are nontender. Normal range of motion. Upper extremities nontender normal curer foam rubber strength. Neurologically she is awake and alert. She answers questions she does have dementia and some confusion. She does follow commands. Const Vital Signs: 07/24/24 01:24 07/24/24 01:24 Temperature 98 F Temperature Source Oral Pulse Rate 53 L Respirator (more content not included)... Normal [facility] HIP, UNI W/ Pelvis 2-3 Views on 07-24-2024 HIP, UNI W/ Pelvis 2-3 Views [facility] Imaging Services [address] [place] [address] HIP, UNI W/ Pelvis 2-3 Views MR#: [id number] Acct: [id number] Name: CT DALTON Rep #: [id number] : 1940 F 83 From: Lauri mason MD PCP: Dr. Jairon Medel MD Status: REG ER Study: HIP, UNI W/ Pelvis 2-3 Views Date of Exam: Exam# [id number] Ordering Dr: Jean Claude Harry MD PROCEDURE: HIP, UNI W/ PELVIS 2-3 VIEWS 07/24/2024 REASON FOR EXAM: FALL AND RIGHT HIP PAIN TECHNIQUE: HIP, UNI W/ PELVIS 2-3 VIEWS COMPARISON: None FINDINGS: Bones: Acute right superior ramus fracture is seen. Joints: Moderate right hip degenerative hanges are seen. Soft tissues: No obvious abnormalities. RAD/HIP, UNI W/ Pelvis 2-3 Views IMPRESSION: Acute right superior ramus fracture. Right hip moderate degenerative changes. Reading Location: [place] [address] CC: Dr. Jairon Medel MD; Dr. Jean Claude Harry MD French Binding Folder: Signed Normal [facility] Absolute lymphocyte countOrd ered By: Jairon Medel on 06-26-2024 Lymphocytes Auto (Unsp spec) [#/Vol] 2.05 10*3/uL 0.83-4.51 [facility] Absolute neutrophil countOrd ered By: Jairon Medel on 06-26-2024 Neutrophils (Bld) [#/Vol] 3.9 10*3/uL 2.0-7.7 [facility] Anion gap in Serum or Plasma Ordered By: Jairon Medel on 06-26-2024 Anion gap [Moles/Vol] 9 mmol/L - [facility] Automated lymphocyte count a s percentage of total leukocytesOrdered By: Jairon Medel on 06-26-2024 Lymphocytes/100 WBC Auto (Unsp spec) 30.5 % - [facility] BUN/creatinine ratioOrdered By: Jairon Medel on 06-26-2024 Urea nitrogen/Creatinine [Mass ratio] 20.9 mg/mg High 10-20 [facility] Basophil percentageOrdered B y: Carrillomahadmakenzie Torojenifersophia on 06-26-2024 Basophils/100 WBC (Bld) 0.4 % 0-1 [facility] Carbon dioxide, total [Moles /volume] in Central venous bloodOrdered By: margarette Medel on 06-26-2024 CO2 [Moles/Vol] 23.5 mmol/L 21.0-32.0 [facility] Chloride assayOrdered By: Pooja meghanmakenzie Medel on 06-26-2024 Chloride [Moles/Vol] 107 mmol/L 98-108 [facility] Eosinophil percentageOrdered By: sreekanthmahadmakenzie Torojenifersophia on 06-26-2024 Eosinophils/100 WBC (Bld) 1.9 % 0-5 [facility] Erythrocyte distribution wid th ratioOrdered By: [facility] Torojenifersophia on 06-26-2024 Erythrocyte distribution width (RBC) [Ratio] 14.1 % 11.6-14.6 [facility] Erythrocyte distribution wid th standard deviationOrdered By: sreekanthduncanmakenzie Cortezjenifersophia on 06-26-2024 Erythrocyte distribution width (RBC) [Ratio] 46.5 fl High 35.1-43.9 [facility] Glomerular filtration rate ( GFR) estimation/1.73 sq m using serum, plasma, or whole bOrdered By: margarette Torojenifersophia on 06-26-2024 GFR/1.73 sq M.predicted among non-blacks MDRD (S/P/Bld) [Vol rate/Area] 55 mL/min/{1.73_m2} Low >60 [facility] Comment on above: mL/min/1.73m2 CKD-EP I Creatinine Equation (2020) Hematocrit Auto (Bld) [Volum e fraction]Ordered By: Jairon Medel on 06-26-2024 Hematocrit (Bld) [Volume fraction] 32.7 % Low 37-47 [facility] Hemoglobin measurementOrdere d By: Jairon Medel on 06-26-2024 Hemoglobin (Bld) [Mass/Vol] 10.1 g/dL Low 12.0-15.0 [facility] Immature granulocytes/100 WB C Auto (Bld)Ordered By: Jairon Medel on 06-26-2024 Immature granulocytes/100 WBC (Bld) 0.400 % 0.0-0.9 [facility] Comment on above: IG% - Immature Granu locytes (promyelocytes, myelocytes and metamyelocytes) > 1% indicates that a LEFT SHIFT is Present. MCV (mean corpuscular volume ) determinationOrdered By: Jairon Medel on 06-26-2024 MCV (RBC) [Entitic vol] 90.3 fL 81-99 [facility] Mean corpuscular hemoglobin (MCH) determinationOrdered By: [facility] Medel on 06-26-2024 MCH (RBC) [Entitic mass] 27.9 pg 27.0-32.0 [facility] Mean corpuscular hemoglobin concentration (MCHC) determinationOrdered By: sreekanthduncanmakenzie Medel on 06-26-2024 MCHC (RBC) [Mass/Vol] 30.9 g/dL Low 32-36 [facility] Mean platelet volume determi nationOrdered By: Jairon Medel on 06-26-2024 Platelet mean volume (Bld) [Entitic vol] 10.3 fL 6.2-12.0 [facility] Monocyte percentageOrdered B y: Jairon Medel on 06-26-2024 Monocytes/100 WBC (Bld) 8.8 % 0-10 [facility] Neutrophil percentageOrdered By: sreekanthduncanmakenzie Medel on 06-26-2024 Neutrophils/100 WBC (Bld) 58.0 % 47-70 [facility] Nucleated red blood cell per centageOrdered By: Jairon Medel on 06-26-2024 Nucleated RBC/100 WBC (Bld) [Ratio] 0 % 0-5 [facility] Platelet countOrdered By: Pooja Medel on 06-26-2024 Platelets (Bld) [#/Vol] 242 10*3/uL 150-450 [facility] Potassium measurement (mass/ volume)Ordered By: Jairon Medel on 06-26-2024 Potassium (Unsp spec) [Mass/Vol] 4.3 mmol/L 3.3-5.1 [facility] RBC Auto (Bld) [#/Vol]Ordere d By: Carrillomahadmakenzie Medel on 06-26-2024 RBC (Bld) [#/Vol] 3.62 10*6/uL Low 4.2-5.4 [facility] Serum creatinine measurement (mass/volume)Ordered By: Jairon Medel on 06-26-2024 Creatinine [Mass/Vol] 1.01 mg/dL 0.70-1.20 [facility] Serum glucose measurement (m ass/volume)Ordered By: Jairon Medel on 06-26-2024 Glucose [Mass/Vol] 89 mg/dL 70-99 [facility] Serum or plasma calcium krissy urement (mass/volume)Ordered By: Jairon Medel on 06-26-2024 Calcium [Mass/Vol] 9.6 mg/dL 7.6-11.0 [facility] Serum or plasma urea nitroge n measurement (mass/volume)Ordered By: Jairon Medel on 06-26-2024 Urea nitrogen [Mass/Vol] 21 mg/dL High 4-19 [facility] Sodium levelOrdered By: Carrillo malcolmrajesh Gianfranco on 06-26-2024 Sodium [Moles/Vol] 140 mmol/L 133-145 [facility] White blood cell (WBC) count Ordered By: Jairon Medel on 06-26-2024 WBC (Bld) [#/Vol] 6.7 10*3/uL 4.4-11.0 [facility] Absolute lymphocyte countOrd ered By: Jairon Medel on 05-29-2024 Lymphocytes Auto (Unsp spec) [#/Vol] 2.09 10*3/uL 0.83-4.51 [facility] Absolute neutrophil countOrd ered By: Jairon Medel on 05-29-2024 Neutrophils (Bld) [#/Vol] 3.4 10*3/uL 2.0-7.7 [facility] Anion gap in Serum or Plasma Ordered By: Jairon Medel on 05-29-2024 Anion gap [Moles/Vol] 10 mmol/L 5-15 [facility] Automated lymphocyte count a s percentage of total leukocytesOrdered By: Jairon Medel on 05-29-2024 Lymphocytes/100 WBC Auto (Unsp spec) 34.4 % 19-41 [facility] BUN/creatinine ratioOrdered By: Jairon Medel on 05-29-2024 Urea nitrogen/Creatinine [Mass ratio] 16.9 mg/mg 10-20 [facility] Basophil percentageOrdered B y: Jairon Medel on 05-29-2024 Basophils/100 WBC (Bld) 1.2 % High 0-1 [facility] Bilirubin directOrdered By: Jairon Medel on 05-29-2024 Bilirubin.direct [Mass/Vol] 0.17 mg/dL 0.00-0.30 [facility] Bilirubin, totalOrdered By: Jairon Medel on 05-29-2024 Bilirubin [Mass/Vol] 0.35 mg/dL 0.00-1.30 [facility] Carbon dioxide, total [Moles /volume] in Central venous bloodOrdered By: Jairon Medel on 05-29-2024 CO2 [Moles/Vol] 25.1 mmol/L 21.0-32.0 [facility] Chloride assayOrdered By: Pooja Medel on 05-29-2024 Chloride [Moles/Vol] 105 mmol/L 98-108 [facility] Eosinophil percentageOrdered By: Jairon Medel on 05-29-2024 Eosinophils/100 WBC (Bld) 1.6 % 0-5 [facility] Erythrocyte distribution wid th (RBC) [Ratio]Ordered By: Jairon Medel on 05-29-2024 Erythrocyte distribution width (RBC) [Entitic vol] 41.0 fL 35.1-43.9 [facility] Erythrocyte distribution wid th ratioOrdered By: Jairon Medel on 05-29-2024 Erythrocyte distribution width (RBC) [Ratio] 13.1 % 11.6-14.6 [facility] Erythrocyte distribution wid th standard deviationOrdered By: Jairon Medel on 05-29-2024 Erythrocyte distribution width (RBC) [Ratio] 41.0 fl 35.1-43.9 [facility] GFR/1.73 sq M.predicted hua g non-blacks MDRD (S/P/Bld) [Vol rate/Area]Ordered By: Jairon Medel on 05-29-2024 Estimated GFR (MDRD) Non-Af Amer 50 Low >60 [facility] Comment on above: mL/min/1.73m2 CKD-EP I Creatinine Equation (2020) Glomerular filtration rate ( GFR) estimation/1.73 sq m using serum, plasma, or whole bOrdered By: Jairon Medel on 05-29-2024 GFR/1.73 sq M.predicted among non-blacks MDRD (S/P/Bld) [Vol rate/Area] 50 mL/min/{1.73_m2} Low >60 [facility] Comment on above: mL/min/1.73m2 CKD-EP I Creatinine Equation (2020) Hematocrit Auto (Bld) [Volum e fraction]Ordered By: Jairon Medel on 05-29-2024 Hematocrit (Bld) [Volume fraction] 33.4 % Low 37-47 [facility] Hemoglobin measurementOrdere d By: Jairon Medel on 05-29-2024 Hemoglobin (Bld) [Mass/Vol] 10.9 g/dL Low 12.0-15.0 [facility] Immature granulocytes/100 WB C Auto (Bld)Ordered By: Jairon Medel on 05-29-2024 Immature granulocytes/100 WBC (Bld) 0.200 % 0.0-0.9 [facility] Comment on above: IG% - Immature Granu locytes (promyelocytes, myelocytes and metamyelocytes) > 1% indicates that a LEFT SHIFT is Present. Laboratory - Chemistry and C hemistry - challengeOrdered By: Jairon Medel on 05-29-2024 AST [Catalytic activity/Vol] 20 U/L <32 [facility] Lymphocytes Auto (Unsp spec) [#/Vol]Ordered By: Jairon Medel on 05-29-2024 Lymphocytes (Bld) [#/Vol] 2.09 10*3/uL 0.83-4.51 [facility] Lymphocytes/100 WBC Auto (Un sp spec)Ordered By: Jairon Medel on 05-29-2024 Lymphocytes/100 WBC (Bld) 34.4 % 19-41 [facility] MCV (mean corpuscular volume ) determinationOrdered By: Jairon Medel on 05-29-2024 MCV (RBC) [Entitic vol] 85.9 fL 81-99 [facility] Mean corpuscular hemoglobin (MCH) determinationOrdered By: Jairon Medel on 05-29-2024 MCH (RBC) [Entitic mass] 28.0 pg 27.0-32.0 [facility] Mean corpuscular hemoglobin concentration (MCHC) determinationOrdered By: Jairon Medel on 05-29-2024 MCHC (RBC) [Mass/Vol] 32.6 g/dL 32-36 [facility] Mean platelet volume determi nationOrdered By: Jairon Medel on 05-29-2024 Platelet mean volume (Bld) [Entitic vol] 10.3 fL 6.2-12.0 [facility] Monocyte percentageOrdered B y: Jairon Medel on 05-29-2024 Monocytes/100 WBC (Bld) 7.6 % 0-10 [facility] Neutrophil percentageOrdered By: Jairon Medel on 05-29-2024 Neutrophils/100 WBC (Bld) 55.0 % 47-70 [facility] Nucleated red blood cell per centageOrdered By: Jairon Medel on 05-29-2024 Nucleated RBC/100 WBC (Bld) [Ratio] 0 % 0-5 [facility] Platelet countOrdered By: Pooja sreekanthbraden Medel on 05-29-2024 Platelets (Bld) [#/Vol] 247 10*3/uL 150-450 [facility] Potassium (Unsp spec) [Mass/ Vol]Ordered By: Jairon Medel on 05-29-2024 Potassium [Moles/Vol] 4.3 mmol/L 3.3-5.1 [facility] Potassium measurement (mass/ volume)Ordered By: Jairon Medel on 05-29-2024 Potassium (Unsp spec) [Mass/Vol] 4.3 mmol/L 3.3-5.1 [facility] RBC Auto (Bld) [#/Vol]Ordere d By: Jairon Medel on 05-29-2024 RBC (Bld) [#/Vol] 3.89 10*6/uL Low 4.2-5.4 [facility] Serum creatinine measurement (mass/volume)Ordered By: Jairon Medel on 05-29-2024 Creatinine [Mass/Vol] 1.08 mg/dL 0.70-1.20 [facility] Serum globulin measurementOr dered By: Jairon Medel on 05-29-2024 Globulin (S) [Mass/Vol] 2.5 g/dL 2.2-4.2 [facility] Serum glucose measurement (m ass/volume)Ordered By: Jairon Medel on 05-29-2024 Glucose [Mass/Vol] 89 mg/dL 70-99 [facility] Serum or plasma alanine crane otransferase (ALT) measurementOrdered By: Jairon Medel on 05-29-2024 ALT [Catalytic activity/Vol] 11 U/L <35 [facility] Serum or plasma albumin krissy urement (mass/volume)Ordered By: Jairon Medel 05-29-2024 Albumin [Mass/Vol] 4.0 g/dL 3.4-4.8 [facility] Serum or plasma alkaline luis sphatase measurementOrdered By: Jairon Medel 05-29-2024 ALP [Catalytic activity/Vol] 62 U/L 35-104 [facility] Serum or plasma calcium krissy urement (mass/volume)Ordered By: Jairon Medel on 05-29-2024 Calcium [Mass/Vol] 9.8 mg/dL 7.6-11.0 [facility] Serum or plasma urea nitroge n measurement (mass/volume)Ordered By: Jairon Medel on 05-29-2024 Urea nitrogen [Mass/Vol] 18 mg/dL 4-19 [facility] Sodium levelOrdered By: Carrillo Medel on 05-29-2024 Sodium [Moles/Vol] 140 mmol/L 133-145 [facility] Total proteinOrdered By: Masoud Medel on 05-29-2024 Protein [Mass/Vol] 6.4 g/dL 5.9-8.4 [facility] White blood cell (WBC) count Ordered By: Jairon Medel on 05-29-2024 WBC (Bld) [#/Vol] 6.1 10*3/uL 4.4-11.0 [facility] Absolute lymphocyte countOrd ered By: Jairon Medel on 05-24-2024 Lymphocytes Auto (Unsp spec) [#/Vol] 1.90 10*3/uL 0.83-4.51 [facility] Absolute neutrophil countOrd ered By: Jairon Medel on 05-24-2024 Neutrophils (Bld) [#/Vol] 3.1 10*3/uL 2.0-7.7 [facility] Anion gap in Serum or Plasma Ordered By: Jairon Medel on 05-24-2024 Anion gap [Moles/Vol] 11 mmol/L 5-15 [facility] Automated lymphocyte count a s percentage of total leukocytesOrdered By: Jairon Medel on 05-24-2024 Lymphocytes/100 WBC Auto (Unsp spec) 33.6 % 19-41 [facility] BUN/creatinine ratioOrdered By: Jairon Medel on 05-24-2024 Urea nitrogen/Creatinine [Mass ratio] 19.7 mg/mg 10-20 [facility] Basophil percentageOrdered B y: Jairon Medel on 05-24-2024 Basophils/100 WBC (Bld) 1.1 % High 0-1 [facility] Bilirubin, totalOrdered By: Jairon Medel on 05-24-2024 Bilirubin [Mass/Vol] 0.29 mg/dL 0.00-1.30 [facility] Carbon dioxide, total [Moles /volume] in Central venous bloodOrdered By: Jairon Medel on 05-24-2024 CO2 [Moles/Vol] 23.5 mmol/L 21.0-32.0 [facility] Chloride assayOrdered By: Pooja margarette Medel on 05-24-2024 Chloride [Moles/Vol] 106 mmol/L 98-108 [facility] Eosinophil percentageOrdered By: Jairon Medel on 05-24-2024 Eosinophils/100 WBC (Bld) 2.1 % 0-5 [facility] Erythrocyte distribution wid th (RBC) [Ratio]Ordered By: margarette Medel on 05-24-2024 Erythrocyte distribution width (RBC) [Entitic vol] 41.3 fL 35.1-43.9 [facility] Erythrocyte distribution wid th ratioOrdered By: [facility] on 05-24-2024 Erythrocyte distribution width (RBC) [Ratio] 13.2 % 11.6-14.6 [facility] Erythrocyte distribution wid th standard deviationOrdered By: sreekanthduncanmakenzie Medel on 05-24-2024 Erythrocyte distribution width (RBC) [Ratio] 41.3 fl 35.1-43.9 [facility] GFR/1.73 sq M.predicted hua g non-blacks MDRD (S/P/Bld) [Vol rate/Area]Ordered By: Jairon Medel on 05-24-2024 Estimated GFR (MDRD) Non-Af Amer 52 Low >60 [facility] Comment on above: mL/min/1.73m2 CKD-EP I Creatinine Equation (2020) Glomerular filtration rate ( GFR) estimation/1.73 sq m using serum, plasma, or whole bOrdered By: margarette eMdel on 05-24-2024 GFR/1.73 sq M.predicted among non-blacks MDRD (S/P/Bld) [Vol rate/Area] 52 mL/min/{1.73_m2} Low >60 [facility] Comment on above: mL/min/1.73m2 CKD-EP I Creatinine Equation (2020) Hematocrit Auto (Bld) [Volum e fraction]Ordered By: Jairon Medel on 05-24-2024 Hematocrit (Bld) [Volume fraction] 33.2 % Low 37-47 [facility] Hemoglobin A1c percentageOrd ered By: Jairon Medel on 05-24-2024 HbA1c (Bld) [Mass fraction] 5.5 % <5.7 [facility] Comment on above: Normal < 5.7 % Predi abetic 5.7 - 6.4 % Diabetic >or= 6.5 % Please note range changes. Hemoglobin measurementOrdere d By: Jairon Medel on 05-24-2024 Hemoglobin (Bld) [Mass/Vol] 10.7 g/dL Low 12.0-15.0 [facility] Immature granulocytes/100 WB C Auto (Bld)Ordered By: Jairon Medel on 05-24-2024 Immature granulocytes/100 WBC (Bld) 0.200 % 0.0-0.9 [facility] Comment on above: IG% - Immature Granu locytes (promyelocytes, myelocytes and metamyelocytes) > 1% indicates that a LEFT SHIFT is Present. Laboratory - Chemistry and C hemistry - challengeOrdered By: Jairon Medel on 05-24-2024 AST [Catalytic activity/Vol] 21 U/L <32 [facility] Lymphocytes Auto (Unsp spec) [#/Vol]Ordered By: Jairon Medel on 05-24-2024 Lymphocytes (Bld) [#/Vol] 1.90 10*3/uL 0.83-4.51 [facility] Lymphocytes/100 WBC Auto (Un sp spec)Ordered By: Jairon Medel on 05-24-2024 Lymphocytes/100 WBC (Bld) 33.6 % 19-41 [facility] MCV (mean corpuscular volume ) determinationOrdered By: Jairon Medel on 05-24-2024 MCV (RBC) [Entitic vol] 86.2 fL 81-99 [facility] Mean corpuscular hemoglobin (MCH) determinationOrdered By: Jairon Medel on 05-24-2024 MCH (RBC) [Entitic mass] 27.8 pg 27.0-32.0 [facility] Mean corpuscular hemoglobin concentration (MCHC) determinationOrdered By: Jairon Medel on 05-24-2024 MCHC (RBC) [Mass/Vol] 32.2 g/dL 32-36 [facility] Mean platelet volume determi nationOrdered By: Jairno Medel on 05-24-2024 Platelet mean volume (Bld) [Entitic vol] 10.2 fL 6.2-12.0 [facility] Monocyte percentageOrdered B y: Poojasreekanthmahadmakenzie Torodorcas on 05-24-2024 Monocytes/100 WBC (Bld) 8.1 % 0-10 [facility] Neutrophil percentageOrdered By: Jairon Torojneifersophia on 05-24-2024 Neutrophils/100 WBC (Bld) 54.9 % 47-70 [facility] Nucleated red blood cell per centageOrdered By: Jairon Medel on 05-24-2024 Nucleated RBC/100 WBC (Bld) [Ratio] 0 % 0-5 [facility] Platelet countOrdered By: Pooja sreekanthbraden Medel on 05-24-2024 Platelets (Bld) [#/Vol] 264 10*3/uL 150-450 [facility] Potassium (Unsp spec) [Mass/ Vol]Ordered By: Jairon Medel on 05-24-2024 Potassium [Moles/Vol] 3.9 mmol/L 3.3-5.1 [facility] Potassium measurement (mass/ volume)Ordered By: Jairon Medel on 05-24-2024 Potassium (Unsp spec) [Mass/Vol] 3.9 mmol/L 3.3-5.1 [facility] RBC Auto (Bld) [#/Vol]Ordere d By: Jairon Medel on 05-24-2024 RBC (Bld) [#/Vol] 3.85 10*6/uL Low 4.2-5.4 [facility] Serum creatinine measurement (mass/volume)Ordered By: Jairon Medel on 05-24-2024 Creatinine [Mass/Vol] 1.05 mg/dL 0.70-1.20 [facility] Serum globulin measurementOr dered By: Jairon Medel on 05-24-2024 Globulin (S) [Mass/Vol] 2.6 g/dL 2.2-4.2 [facility] Serum glucose measurement (m ass/volume)Ordered By: Jairon Medel on 05-24-2024 Glucose [Mass/Vol] 95 mg/dL 70-99 [facility] Serum or plasma alanine crane otransferase (ALT) measurementOrdered By: Jairon Medel on 05-24-2024 ALT [Catalytic activity/Vol] 11 U/L <35 [facility] Serum or plasma albumin krissy urement (mass/volume)Ordered By: Jairon Medel on 05-24-2024 Albumin [Mass/Vol] 4.0 g/dL 3.4-4.8 [facility] Serum or plasma albumin/glob ulin mass ratioOrdered By: Jairon Medel on 05-24-2024 Albumin/Globulin [Mass ratio] 1.5 {ratio} 0.9-2.4 [facility] Serum or plasma alkaline luis sphatase measurementOrdered By: Jairon Medel on 05-24-2024 ALP [Catalytic activity/Vol] 67 U/L 35-104 [facility] Serum or plasma calcium krissy urement (mass/volume)Ordered By: Jairon Medel on 05-24-2024 Calcium [Mass/Vol] 9.9 mg/dL 7.6-11.0 [facility] Serum or plasma urea nitroge n measurement (mass/volume)Ordered By: Jairon Medel on 05-24-2024 Urea nitrogen [Mass/Vol] 21 mg/dL High 4-19 [facility] Sodium levelOrdered By: Carrillo Medel on 05-24-2024 Sodium [Moles/Vol] 141 mmol/L 133-145 [facility] Total proteinOrdered By: Masoud Medel on 05-24-2024 Protein [Mass/Vol] 6.6 g/dL 5.9-8.4 [facility] White blood cell (WBC) count Ordered By: Jairon Medel 05-24-2024 WBC (Bld) [#/Vol] 5.7 10*3/uL 4.4-11.0 [facility] Anion gap in Serum or Plasma Ordered By: Jairon Medel on 05-15-2024 Anion gap [Moles/Vol] 10 mmol/L 5-15 [facility] BUN/creatinine ratioOrdered By: Jairon Medel on 05-15-2024 Urea nitrogen/Creatinine [Mass ratio] 15.3 mg/mg 10-20 [facility] Carbon dioxide, total [Moles /volume] in Central venous bloodOrdered By: Jairon Medel on 05-15-2024 CO2 [Moles/Vol] 25.0 mmol/L 21.0-32.0 [facility] Chloride assayOrdered By: Pooja Medel on 05-15-2024 Chloride [Moles/Vol] 108 mmol/L 98-108 [facility] GFR/1.73 sq M.predicted hua g non-blacks MDRD (S/P/Bld) [Vol rate/Area]Ordered By: Jairon Medel on 05-15-2024 Estimated GFR (MDRD) Non-Af Amer 57 Low >60 [facility] Comment on above: mL/min/1.73m2 CKD-EP I Creatinine Equation (2020) Glomerular filtration rate ( GFR) estimation/1.73 sq m using serum, plasma, or whole bOrdered By: Jairon Medel on 05-15-2024 GFR/1.73 sq M.predicted among non-blacks MDRD (S/P/Bld) [Vol rate/Area] 57 mL/min/{1.73_m2} Low >60 [facility] Comment on above: mL/min/1.73m2 CKD-EP I Creatinine Equation (2020) Potassium (Unsp spec) [Mass/ Vol]Ordered By: Jairon Medel on 05-15-2024 Potassium [Moles/Vol] 3.8 mmol/L 3.3-5.1 [facility] Potassium measurement (mass/ volume)Ordered By: Jairon Medel on 05-15-2024 Potassium (Unsp spec) [Mass/Vol] 3.8 mmol/L 3.3-5.1 [facility] Serum creatinine measurement (mass/volume)Ordered By: Jairon Medel on 05-15-2024 Creatinine [Mass/Vol] 0.98 mg/dL 0.70-1.20 [facility] Serum glucose measurement (m ass/volume)Ordered By: Jairon Medel on 05-15-2024 Glucose [Mass/Vol] 87 mg/dL 70-99 [facility] Serum or plasma calcium krissy urement (mass/volume)Ordered By: Jairon Medel on 05-15-2024 Calcium [Mass/Vol] 9.8 mg/dL 7.6-11.0 [facility] Serum or plasma urea nitroge n measurement (mass/volume)Ordered By: Jairon Medel on 05-15-2024 Urea nitrogen [Mass/Vol] 15 mg/dL 4-19 [facility] Sodium levelOrdered By: Carrillo malcolmrajesh Gianfranco on 05-15-2024 Sodium [Moles/Vol] 143 mmol/L 133-145 [facility] Absolute lymphocyte countOrd ered By: Jairon Medel on 05-01-2024 Lymphocytes Auto (Unsp spec) [#/Vol] 1.90 10*3/uL 0.83-4.51 [facility] Absolute neutrophil countOrd ered By: Jairon Medel on 05-01-2024 Neutrophils (Bld) [#/Vol] 2.7 10*3/uL 2.0-7.7 [facility] Anion gap in Serum or Plasma Ordered By: Jairon Medel on 05-01-2024 Anion gap [Moles/Vol] 11 mmol/L 5-15 [facility] Automated lymphocyte count a s percentage of total leukocytesOrdered By: Jairon Medel on 05-01-2024 Lymphocytes/100 WBC Auto (Unsp spec) 35.5 % 19-41 [facility] BUN/creatinine ratioOrdered By: Jairon Medel on 05-01-2024 Urea nitrogen/Creatinine [Mass ratio] 17.8 mg/mg 10-20 [facility] Basophil percentageOrdered B y: Jairon Medel on 05-01-2024 Basophils/100 WBC (Bld) 1.5 % High 0-1 [facility] Carbon dioxide, total [Moles /volume] in Central venous bloodOrdered By: Jairon Medel on 05-01-2024 CO2 [Moles/Vol] 23.3 mmol/L 21.0-32.0 [facility] Chloride assayOrdered By: Pooja Medel on 05-01-2024 Chloride [Moles/Vol] 107 mmol/L 98-108 [facility] Eosinophil percentageOrdered By: Jairon Medel on 05-01-2024 Eosinophils/100 WBC (Bld) 2.2 % 0-5 [facility] Erythrocyte distribution wid th (RBC) [Ratio]Ordered By: Jairon Medel on 05-01-2024 Erythrocyte distribution width (RBC) [Entitic vol] 44.5 fL High 35.1-43.9 [facility] Erythrocyte distribution wid th ratioOrdered By: Jairon Medel on 05-01-2024 Erythrocyte distribution width (RBC) [Ratio] 13.0 % 11.6-14.6 [facility] Erythrocyte distribution wid th standard deviationOrdered By: Jairon Medel on 05-01-2024 Erythrocyte distribution width (RBC) [Ratio] 44.5 fl High 35.1-43.9 [facility] GFR/1.73 sq M.predicted hua g non-blacks MDRD (S/P/Bld) [Vol rate/Area]Ordered By: Jairon Medel on 05-01-2024 Estimated GFR (MDRD) Non-Af Amer 58 Low >60 [facility] Comment on above: mL/min/1.73m2 CKD-EP I Creatinine Equation (2020) Glomerular filtration rate ( GFR) estimation/1.73 sq m using serum, plasma, or whole bOrdered By: Jairon Medel 05-01-2024 GFR/1.73 sq M.predicted among non-blacks MDRD (S/P/Bld) [Vol rate/Area] 58 mL/min/{1.73_m2} Low >60 [facility] Comment on above: mL/min/1.73m2 CKD-EP I Creatinine Equation (2020) Hematocrit Auto (Bld) [Volum e fraction]Ordered By: Jairon Medel on 05-01-2024 Hematocrit (Bld) [Volume fraction] 37.3 % 37-47 [facility] Hemoglobin measurementOrdere d By: Jairon Medel on 05-01-2024 Hemoglobin (Bld) [Mass/Vol] 11.3 g/dL Low 12.0-15.0 [facility] Immature granulocytes/100 WB C Auto (Bld)Ordered By: Jairon Medel on 05-01-2024 Immature granulocytes/100 WBC (Bld) 1.100 % High 0.0-0.9 [facility] Comment on above: IG% - Immature Granu locytes (promyelocytes, myelocytes and metamyelocytes) > 1% indicates that a LEFT SHIFT is Present. Lymphocytes Auto (Unsp spec) [#/Vol]Ordered By: Jairon Medel on 05-01-2024 Lymphocytes (Bld) [#/Vol] 1.90 10*3/uL 0.83-4.51 [facility] Lymphocytes/100 WBC Auto (Un sp spec)Ordered By: Jairon Medel on 05-01-2024 Lymphocytes/100 WBC (Bld) 35.5 % 19-41 [facility] MCV (mean corpuscular volume ) determinationOrdered By: Jairon Medel on 05-01-2024 MCV (RBC) [Entitic vol] 93.5 fL 81-99 [facility] Mean corpuscular hemoglobin (MCH) determinationOrdered By: sreekanthduncanmakenzie Medel on 05-01-2024 MCH (RBC) [Entitic mass] 28.3 pg 27.0-32.0 [facility] Mean corpuscular hemoglobin concentration (MCHC) determinationOrdered By: Jairon Medel on 05-01-2024 MCHC (RBC) [Mass/Vol] 30.3 g/dL Low 32-36 [facility] Mean platelet volume determi nationOrdered By: Jairon Medel on 05-01-2024 Platelet mean volume (Bld) [Entitic vol] 10.2 fL 6.2-12.0 [facility] Monocyte percentageOrdered B y: Jairon Medel on 05-01-2024 Monocytes/100 WBC (Bld) 9.0 % 0-10 [facility] Neutrophil percentageOrdered By: Jairon Medel on 05-01-2024 Neutrophils/100 WBC (Bld) 50.7 % 47-70 [facility] Nucleated red blood cell per centageOrdered By: Jairon Medel on 05-01-2024 Nucleated RBC/100 WBC (Bld) [Ratio] 0 % 0-5 [facility] Platelet countOrdered By: Pooja Medel on 05-01-2024 Platelets (Bld) [#/Vol] 235 10*3/uL 150-450 [facility] Potassium (Unsp spec) [Mass/ Vol]Ordered By: Jairon Medel on 05-01-2024 Potassium [Moles/Vol] 4.3 mmol/L 3.3-5.1 [facility] Potassium measurement (mass/ volume)Ordered By: Jairon Medel on 05-01-2024 Potassium (Unsp spec) [Mass/Vol] 4.3 mmol/L 3.3-5.1 [facility] RBC Auto (Bld) [#/Vol]Ordere d By: Jairon Medel on 05-01-2024 RBC (Bld) [#/Vol] 3.99 10*6/uL Low 4.2-5.4 [facility] Serum creatinine measurement (mass/volume)Ordered By: Jairon Medel on 05-01-2024 Creatinine [Mass/Vol] 0.96 mg/dL 0.70-1.20 [facility] Serum glucose measurement (m ass/volume)Ordered By: Jairon Medel on 05-01-2024 Glucose [Mass/Vol] 89 mg/dL 70-99 [facility] Serum or plasma calcium krissy urement (mass/volume)Ordered By: Jairon Medel on 05-01-2024 Calcium [Mass/Vol] 9.8 mg/dL 7.6-11.0 [facility] Serum or plasma urea nitroge n measurement (mass/volume)Ordered By: Jairon Medel on 05-01-2024 Urea nitrogen [Mass/Vol] 17 mg/dL 4-19 [facility] Sodium levelOrdered By: Carrillo Medel on 05-01-2024 Sodium [Moles/Vol] 141 mmol/L 133-145 [facility] White blood cell (WBC) count Ordered By: Jairon Medel on 05-01-2024 WBC (Bld) [#/Vol] 5.4 10*3/uL 4.4-11.0 [facility] Absolute lymphocyte countOrd ered By: Jairon Medel on 04-03-2024 Lymphocytes Auto (Unsp spec) [#/Vol] 1.70 10*3/uL 0.83-4.51 [facility] Absolute neutrophil countOrd ered By: Jairon Medel on 04-03-2024 Neutrophils (Bld) [#/Vol] 3.0 10*3/uL 2.0-7.7 [facility] Automated lymphocyte count a s percentage of total leukocytesOrdered By: Goldiemakenzie Haleysophia on 04-03-2024 Lymphocytes/100 WBC Auto (Unsp spec) 32.1 % 19-41 [facility] Basophil percentageOrdered B y: Jairon Medel on 04-03-2024 Basophils/100 WBC (Bld) 1.3 % High 0-1 [facility] Blood urea nitrogen (BUN)/cr eatinine ratioOrdered By: Jairon De Leonsophia on 04-03-2024 Urea nitrogen/Creatinine [Mass ratio] 21.1 mg/mg High 10-20 [facility] Carbon dioxide measurementOr dered By: Jairon Medel on 04-03-2024 CO2 [Moles/Vol] 27.0 mmol/L 21.0-32.0 [facility] Chloride measurementOrdered By: Jairon Torojenifersophia on 04-03-2024 Chloride [Moles/Vol] 111 mmol/L High 98-107 [facility] Eosinophil percentageOrdered By: Efsreekanthongmakenzie De Leone on 04-03-2024 Eosinophils/100 WBC (Bld) 2.3 % 0-5 [facility] Erythrocyte distribution wid th (RBC) [Ratio]Ordered By: Jairon De Leone on 04-03-2024 Erythrocyte distribution width (RBC) [Entitic vol] 43.2 fL 35.1-43.9 [facility] Erythrocyte distribution wid th ratioOrdered By: Jairon Torojenifere on 04-03-2024 Erythrocyte distribution width (RBC) [Ratio] 13.2 % 11.6-14.6 [facility] Erythrocyte distribution wid th standard deviationOrdered By: Jairon Medel on 04-03-2024 Erythrocyte distribution width (RBC) [Ratio] 43.2 fl 35.1-43.9 [facility] Estimated glomerular filtrat ion rate (GFR) AmericanOrdered By: Jairon Medel on 04-03-2024 Estimated GFR (MDRD) Amer 72 mL/min >60 [facility] Comment on above: GFR Calc Glomerular filtration rate ( GFR) estimationOrdered By: Jairon Medel on 04-03-2024 Estimated GFR (MDRD) Non-Af Amer 59 mL/min Low >60 [facility] Comment on above: Non- GFR Calc GFR/1.73 sq M.predicted among non-blacks MDRD (S/P/Bld) [Vol rate/Area] 59 mL/min/{1.73_m2} Low >60 [facility] Comment on above: Non- GFR Calc Glucose measurementOrdered B y: Jairon Medel on 04-03-2024 Glucose [Mass/Vol] 93 mg/dL 74-106 [facility] Hematocrit Auto (Bld) [Volum e fraction]Ordered By: Jairon Meedl on 04-03-2024 Hematocrit (Bld) [Volume fraction] 31.6 % Low 37-47 [facility] Hemoglobin measurementOrdere d By: Jairon Medel on 04-03-2024 Hemoglobin (Bld) [Mass/Vol] 9.7 g/dL Low 12.0-15.0 [facility] Immature granulocytes/100 WB C Auto (Bld)Ordered By: Jairon Medel on 04-03-2024 Immature granulocytes/100 WBC (Bld) 0.200 % 0.0-0.9 [facility] Comment on above: IG% - Immature Granu locytes (promyelocytes, myelocytes and metamyelocytes) > 1% indicates that a LEFT SHIFT is Present. Lymphocytes Auto (Unsp spec) [#/Vol]Ordered By: Jairon Medel on 04-03-2024 Lymphocytes (Bld) [#/Vol] 1.70 10*3/uL 0.83-4.51 [facility] Lymphocytes/100 WBC Auto (Un sp spec)Ordered By: Jairon Medel on 04-03-2024 Lymphocytes/100 WBC (Bld) 32.1 % 19-41 [facility] MCV (mean corpuscular volume ) determinationOrdered By: Jairon Medel on 04-03-2024 MCV (RBC) [Entitic vol] 91.1 fL 81-99 [facility] Mean corpuscular hemoglobin (MCH) determinationOrdered By: Jairon Medel on 04-03-2024 MCH (RBC) [Entitic mass] 28.0 pg 27.0-32.0 [facility] Mean corpuscular hemoglobin concentration (MCHC) determinationOrdered By: Jairon Medel on 04-03-2024 MCHC (RBC) [Mass/Vol] 30.7 g/dL Low 32-36 [facility] Mean platelet volume determi nationOrdered By: Jairon Medel on 04-03-2024 Platelet mean volume (Bld) [Entitic vol] 9.9 fL 6.2-12.0 [facility] Monocyte percentageOrdered B y: Jairon Medel on 04-03-2024 Monocytes/100 WBC (Bld) 8.3 % 0-10 [facility] Neutrophil percentageOrdered By: Jairon Medel on 04-03-2024 Neutrophils/100 WBC (Bld) 55.8 % 47-70 [facility] Nucleated red blood cell per centageOrdered By: Jairon Medel on 04-03-2024 Nucleated RBC/100 WBC (Bld) [Ratio] 0 % 0-5 [facility] Platelet countOrdered By: Pooja Medel on 04-03-2024 Platelets (Bld) [#/Vol] 229 10*3/uL 150-450 [facility] Potassium measurementOrdered By: Jairon Medel on 04-03-2024 Potassium [Moles/Vol] 4.4 mmol/L 3.5-5.1 [facility] RBC Auto (Bld) [#/Vol]Ordere d By: Jairon Medel on 04-03-2024 RBC (Bld) [#/Vol] 3.47 10*6/uL Low 4.2-5.4 [facility] Serum anion gap measurementO rdered By: Jairon Medel on 04-03-2024 Anion gap [Moles/Vol] 6 mmol/L 5-15 [facility] Serum or plasma calcium krissy urement (mass/volume)Ordered By: Poojasreekanthbraden Cortezjenifersophia on 04-03-2024 Calcium [Mass/Vol] 9.4 mg/dL 8.5-10.1 [facility] Serum or plasma creatinine m easurement (mass/volume)Ordered By: Goldiemakenzie Torojenifersophia on 04-03-2024 Creatinine [Mass/Vol] 0.95 mg/dL 0.55-1.02 [facility] Comment on above: The validity of the calculated GFR & GFRAA in patients over 70 years has not been determined. Clinical correlation is essential. Serum or plasma urea nitroge n measurement (mass/volume)Ordered By: Poojasreekanthmahadmakenzie Torojenifersophia on 04-03-2024 Urea nitrogen [Mass/Vol] 20 mg/dL High 7-18 [facility] Sodium levelOrdered By: Carrillo Medel on 04-03-2024 Sodium [Moles/Vol] 144 mmol/L 136-145 [facility] White blood cell (WBC) count Ordered By: Jairon Medel on 04-03-2024 WBC (Bld) [#/Vol] 5.3 10*3/uL 4.4-11.0 [facility] Absolute lymphocyte countOrd ered By: Jairon Medel on 03-27-2024 Lymphocytes Auto (Unsp spec) [#/Vol] 2.06 10*3/uL 0.83-4.51 [facility] Absolute neutrophil countOrd ered By: Jairon Medel on 03-27-2024 Neutrophils (Bld) [#/Vol] 3.3 10*3/uL 2.0-7.7 [facility] Automated lymphocyte count a s percentage of total leukocytesOrdered By: Goldiemakenzie Torodorcas on 03-27-2024 Lymphocytes/100 WBC Auto (Unsp spec) 33.5 % 19-41 [facility] Basophil percentageOrdered B y: Jairon Torojenifersophia on 03-27-2024 Basophils/100 WBC (Bld) 0.8 % 0-1 [facility] Blood urea nitrogen (BUN)/cr eatinine ratioOrdered By: Jairon Medel on 03-27-2024 Urea nitrogen/Creatinine [Mass ratio] 19.3 mg/mg 10-20 [facility] Carbon dioxide measurementOr dered By: Jairon Medel on 03-27-2024 CO2 [Moles/Vol] 27.0 mmol/L 21.0-32.0 [facility] Chloride measurementOrdered By: sreekanthduncanmakenzie Medel on 03-27-2024 Chloride [Moles/Vol] 110 mmol/L High 98-107 [facility] Eosinophil percentageOrdered By: Jairon Medel on 03-27-2024 Eosinophils/100 WBC (Bld) 2.3 % 0-5 [facility] Erythrocyte distribution wid th (RBC) [Ratio]Ordered By: Jairon Medel on 03-27-2024 Erythrocyte distribution width (RBC) [Entitic vol] 43.7 fL 35.1-43.9 [facility] Erythrocyte distribution wid th ratioOrdered By: Jairon Medel on 03-27-2024 Erythrocyte distribution width (RBC) [Ratio] 13.2 % 11.6-14.6 [facility] Erythrocyte distribution wid th standard deviationOrdered By: margarette Medel on 03-27-2024 Erythrocyte distribution width (RBC) [Ratio] 43.7 fl 35.1-43.9 [facility] Estimated glomerular filtrat ion rate (GFR) AmericanOrdered By: Jairon Medel on 03-27-2024 Estimated GFR (MDRD) Amer 69 mL/min >60 [facility] Comment on above: GFR Calc Glomerular filtration rate ( GFR) estimationOrdered By: Jairon Medel on 03-27-2024 Estimated GFR (MDRD) Non-Af Amer 57 mL/min Low >60 [facility] Comment on above: Non- GFR Calc GFR/1.73 sq M.predicted among non-blacks MDRD (S/P/Bld) [Vol rate/Area] 57 mL/min/{1.73_m2} Low >60 [facility] Comment on above: Non- GFR Calc Glucose measurementOrdered B y: Carrillomahadmakenzie Medel on 03-27-2024 Glucose [Mass/Vol] 89 mg/dL 74-106 [facility] Hematocrit Auto (Bld) [Volum e fraction]Ordered By: Jairon Medel on 03-27-2024 Hematocrit (Bld) [Volume fraction] 30.9 % Low 37-47 [facility] Hemoglobin measurementOrdere d By: Jiaron Medel on 03-27-2024 Hemoglobin (Bld) [Mass/Vol] 9.6 g/dL Low 12.0-15.0 [facility] Immature granulocytes/100 WB C Auto (Bld)Ordered By: margarette Medel on 03-27-2024 Immature granulocytes/100 WBC (Bld) 0.500 % 0.0-0.9 [facility] Comment on above: IG% - Immature Granu locytes (promyelocytes, myelocytes and metamyelocytes) > 1% indicates that a LEFT SHIFT is Present. Lymphocytes Auto (Unsp spec) [#/Vol]Ordered By: Jairon Medel on 03-27-2024 Lymphocytes (Bld) [#/Vol] 2.06 10*3/uL 0.83-4.51 [facility] Lymphocytes/100 WBC Auto (Un sp spec)Ordered By: Jairon Medel on 03-27-2024 Lymphocytes/100 WBC (Bld) 33.5 % 19-41 [facility] MCV (mean corpuscular volume ) determinationOrdered By: Jairon Medel on 03-27-2024 MCV (RBC) [Entitic vol] 90.1 fL 81-99 [facility] Mean corpuscular hemoglobin (MCH) determinationOrdered By: Jairon Medel on 03-27-2024 MCH (RBC) [Entitic mass] 28.0 pg 27.0-32.0 [facility] Mean corpuscular hemoglobin concentration (MCHC) determinationOrdered By: Jairon Medel on 03-27-2024 MCHC (RBC) [Mass/Vol] 31.1 g/dL Low 32-36 [facility] Mean platelet volume determi nationOrdered By: Jairon Medel on 03-27-2024 Platelet mean volume (Bld) [Entitic vol] 10.2 fL 6.2-12.0 [facility] Monocyte percentageOrdered B y: Jairon Medel on 03-27-2024 Monocytes/100 WBC (Bld) 9.6 % 0-10 [facility] Neutrophil percentageOrdered By: Jairon Medel on 03-27-2024 Neutrophils/100 WBC (Bld) 53.3 % 47-70 [facility] Nucleated red blood cell per centageOrdered By: Jairon Medel on 03-27-2024 Nucleated RBC/100 WBC (Bld) [Ratio] 0 % 0-5 [facility] Platelet countOrdered By: Pooja sreekanthbraden Medel on 03-27-2024 Platelets (Bld) [#/Vol] 235 10*3/uL 150-450 [facility] Potassium measurementOrdered By: Jairon Medel on 03-27-2024 Potassium [Moles/Vol] 4.0 mmol/L 3.5-5.1 [facility] RBC Auto (Bld) [#/Vol]Ordere d By: Jairon Medel on 03-27-2024 RBC (Bld) [#/Vol] 3.43 10*6/uL Low 4.2-5.4 [facility] Serum anion gap measurementO rdered By: Jairon Medel on 03-27-2024 Anion gap [Moles/Vol] 6 mmol/L 5-15 [facility] Serum or plasma calcium krissy urement (mass/volume)Ordered By: Jairon Medel on 03-27-2024 Calcium [Mass/Vol] 9.3 mg/dL 8.5-10.1 [facility] Serum or plasma creatinine m easurement (mass/volume)Ordered By: Jairon Medel on 03-27-2024 Creatinine [Mass/Vol] 0.98 mg/dL 0.55-1.02 [facility] Comment on above: The validity of the calculated GFR & GFRAA in patients over 70 years has not been determined. Clinical correlation is essential. Serum or plasma urea nitroge n measurement (mass/volume)Ordered By: Jairon Medel on 03-27-2024 Urea nitrogen [Mass/Vol] 19 mg/dL High 7-18 [facility] Sodium levelOrdered By: Poojasreekanth braden Gianfranco on 03-27-2024 Sodium [Moles/Vol] 143 mmol/L 136-145 [facility] White blood cell (WBC) count Ordered By: Jairon Medel on 03-27-2024 WBC (Bld) [#/Vol] 6.2 10*3/uL 4.4-11.0 [facility] [id number] DOrdered By: Sophia almamakenzie Medel on 02-28-2024 Vitamin D 25-Hydroxy 60.8 ng/mL [facility] Comment on above: Vitamin D 25(OH) Sta tus Range Deficiency <20 ng/mL (50nmol/L) Insufficiency 20 - 30 ng/mL (50 - 75 nmol/L) Sufficiency 30 - 100 ng/mL (75 - 250 nmol/L) Toxicity >100 ng/mL (>250 nmol/L) Absolute lymphocyte countOrd ered By: Jairon Medel on 02-28-2024 Lymphocytes Auto (Unsp spec) [#/Vol] 1.75 10*3/uL 0.83-4.51 [facility] Absolute neutrophil countOrd ered By: Jairon Medel on 02-28-2024 Neutrophils (Bld) [#/Vol] 3.9 10*3/uL 2.0-7.7 [facility] Albumin to globulin ratioOrd ered By: Goldiemakenzie Torojenifersophia on 02-28-2024 Albumin/Globulin [Mass ratio] 1.0 {ratio} 0.9-2.4 [facility] Automated lymphocyte count a s percentage of total leukocytesOrdered By: Jairon Medel on 02-28-2024 Lymphocytes/100 WBC Auto (Unsp spec) 27.3 % 19-41 [facility] Basophil percentageOrdered B y: Jairon Medel on 02-28-2024 Basophils/100 WBC (Bld) 0.8 % 0-1 [facility] Bilirubin, totalOrdered By: Jairon Medel on 02-28-2024 Bilirubin [Mass/Vol] 0.20 mg/dL 0.20-1.00 [facility] Comment on above: For patients on eltr ombopag therapy, use of [facility] TBIL is not recommended. Blood urea nitrogen (BUN)/cr eatinine ratioOrdered By: Jairon Medel on 02-28-2024 Urea nitrogen/Creatinine [Mass ratio] 24.1 mg/mg High 10-20 [facility] Carbon dioxide measurementOr dered By: Jairon Medel on 02-28-2024 CO2 [Moles/Vol] 27.0 mmol/L 21.0-32.0 [facility] Chloride measurementOrdered By: Jairon Medel on 02-28-2024 Chloride [Moles/Vol] 111 mmol/L High 98-107 [facility] Eosinophil percentageOrdered By: Jairon Medel on 02-28-2024 Eosinophils/100 WBC (Bld) 2.3 % 0-5 [facility] Erythrocyte distribution wid th (RBC) [Ratio]Ordered By: Jairon Medel on 02-28-2024 Erythrocyte distribution width (RBC) [Entitic vol] 43.7 fL 35.1-43.9 [facility] Erythrocyte distribution wid th ratioOrdered By: Jairon Medel on 02-28-2024 Erythrocyte distribution width (RBC) [Ratio] 13.4 % 11.6-14.6 [facility] Erythrocyte distribution wid th standard deviationOrdered By: Jairon Medel on 02-28-2024 Erythrocyte distribution width (RBC) [Ratio] 43.7 fl 35.1-43.9 [facility] Estimated glomerular filtrat ion rate (GFR) AmericanOrdered By: Jairon Medel on 02-28-2024 Estimated GFR (MDRD) Amer 72 mL/min >60 [facility] Comment on above: GFR Calc Glomerular filtration rate ( GFR) estimationOrdered By: Jairon Medel on 02-28-2024 Estimated GFR (MDRD) Non-Af Amer 59 mL/min Low >60 [facility] Comment on above: Non- GFR Calc GFR/1.73 sq M.predicted among non-blacks MDRD (S/P/Bld) [Vol rate/Area] 59 mL/min/{1.73_m2} Low >60 [facility] Comment on above: Non- GFR Calc Glucose measurementOrdered B y: Jairon Medel on 02-28-2024 Glucose [Mass/Vol] 93 mg/dL 74-106 [facility] Hematocrit Auto (Bld) [Volum e fraction]Ordered By: Jairon Medel on 02-28-2024 Hematocrit (Bld) [Volume fraction] 32.1 % Low 37-47 [facility] Hemoglobin measurementOrdere d By: Jairon Medel on 02-28-2024 Hemoglobin (Bld) [Mass/Vol] 9.9 g/dL Low 12.0-15.0 [facility] High density lipoprotein (HD L) measurementOrdered By: Jairon Medel on 02-28-2024 Cholesterol in HDL [Mass/Vol] 58 mg/dL >40 [facility] Comment on above: The drugs N-Acetylcy steine and Metamizole may falsely depress this assay. Reference Range HDL <40 mg/dL Low HDL Cholesterol HDL >or= 60 mg/dL High HDL Cholesterol Immature granulocytes/100 WB C Auto (Bld)Ordered By: Jairon Medel on 02-28-2024 Immature granulocytes/100 WBC (Bld) 0.300 % 0.0-0.9 [facility] Comment on above: IG% - Immature Granu locytes (promyelocytes, myelocytes and metamyelocytes) > 1% indicates that a LEFT SHIFT is Present. Laboratory - Chemistry and C hemistry - challengeOrdered By: Jairon Medel on 02-28-2024 AST [Catalytic activity/Vol] 15 U/L 15-37 [facility] Low density lipoprotein (LDL ) cholesterol measurementOrdered By: Jairon Medel on 02-28-2024 Cholesterol in LDL [Mass/Vol] 67 mg/dL 0-130 [facility] Lymphocytes Auto (Unsp spec) [#/Vol]Ordered By: Jairon Medel on 02-28-2024 Lymphocytes (Bld) [#/Vol] 1.75 10*3/uL 0.83-4.51 [facility] Lymphocytes/100 WBC Auto (Un sp spec)Ordered By: Jairon Medel on 02-28-2024 Lymphocytes/100 WBC (Bld) 27.3 % 19-41 [facility] MCV (mean corpuscular volume ) determinationOrdered By: Jairon Medel on 02-28-2024 MCV (RBC) [Entitic vol] 89.4 fL 81-99 [facility] Mean corpuscular hemoglobin (MCH) determinationOrdered By: Jairon Medel on 02-28-2024 MCH (RBC) [Entitic mass] 27.6 pg 27.0-32.0 [facility] Mean corpuscular hemoglobin concentration (MCHC) determinationOrdered By: Jairon Medel on 02-28-2024 MCHC (RBC) [Mass/Vol] 30.8 g/dL Low 32-36 [facility] Mean platelet volume determi nationOrdered By: Jairon Medel on 02-28-2024 Platelet mean volume (Bld) [Entitic vol] 9.6 fL 6.2-12.0 [facility] Monocyte percentageOrdered B y: Jairon Medel on 02-28-2024 Monocytes/100 WBC (Bld) 8.7 % 0-10 [facility] Neutrophil percentageOrdered By: Jairon Medel on 02-28-2024 Neutrophils/100 WBC (Bld) 60.6 % 47-70 [facility] Nucleated red blood cell per centageOrdered By: Jairon Medel on 02-28-2024 Nucleated RBC/100 WBC (Bld) [Ratio] 0 % 0-5 [facility] Platelet countOrdered By: Pooja Medel on 02-28-2024 Platelets (Bld) [#/Vol] 261 10*3/uL 150-450 [facility] Potassium measurementOrdered By: Jairon Medel on 02-28-2024 Potassium [Moles/Vol] 4.1 mmol/L 3.5-5.1 [facility] RBC Auto (Bld) [#/Vol]Ordere d By: Jairon Medel on 02-28-2024 RBC (Bld) [#/Vol] 3.59 10*6/uL Low 4.2-5.4 [facility] Serum anion gap measurementO rdered By: Jairon Medel on 02-28-2024 Anion gap [Moles/Vol] 4 mmol/L Low 5-15 [facility] Serum globulin measurementOr dered By: Jairon Medel on 02-28-2024 Globulin (S) [Mass/Vol] 2.9 g/dL 2.2-4.2 [facility] Serum or plasma alanine crane otransferase (ALT) measurementOrdered By: Jairon Medel on 02-28-2024 ALT [Catalytic activity/Vol] 17 U/L 13-56 [facility] Serum or plasma albumin krissy urement (mass/volume)Ordered By: Jairon Medel on 02-28-2024 Albumin [Mass/Vol] 2.8 g/dL Low 3.2-5.0 [facility] Serum or plasma alkaline luis sphatase measurementOrdered By: Jairon Medel on 02-28-2024 ALP [Catalytic activity/Vol] 63 U/L 45-117 [facility] Serum or plasma calcium krissy urement (mass/volume)Ordered By: Jairon Medel on 02-28-2024 Calcium [Mass/Vol] 9.6 mg/dL 8.5-10.1 [facility] Serum or plasma cholesterol measurement (mass/volume)Ordered By: Jairon Medel on 02-28-2024 Cholesterol [Mass/Vol] 134 mg/dL <200 [facility] Comment on above: <200 mg/dL Desirable 200-240 mg/dL Borderline >240 mg/dL High Risk Serum or plasma creatinine m easurement (mass/volume)Ordered By: Jairon Medel on 02-28-2024 Creatinine [Mass/Vol] 0.95 mg/dL 0.55-1.02 [facility] Comment on above: The validity of the calculated GFR & GFRAA in patients over 70 years has not been determined. Clinical correlation is essential. Serum or plasma urea nitroge n measurement (mass/volume)Ordered By: Jairon Cortezjenifersophia on 02-28-2024 Urea nitrogen [Mass/Vol] 23 mg/dL High 7-18 [facility] Sodium levelOrdered By: Carrillo feliciano Cortezdorcas on 02-28-2024 Sodium [Moles/Vol] 143 mmol/L 136-145 [facility] Total proteinOrdered By: Masoud rosales Cortezdorcas on 02-28-2024 Protein [Mass/Vol] 5.7 g/dL Low 6.4-8.2 [facility] Triglycerides measurementOrd ered By: Jairon Cortezdorcas on 02-28-2024 Triglyceride [Mass/Vol] 43 mg/dL <199 [facility] Comment on above: The drugs N-Acetylcy steine and Metamizole may falsely depress this assay.Serum Triglycerides Reference Interval Normal <150 mg/dL Borderline high 150 - 199 mg/dL High 200 - 499 mg/dL Very High > or = 500 mg/dL Valproate levelOrdered By: Sophia claudia Cortezdorcas on 02-28-2024 Valproic Acid (Depakene) Level 26 ug/mL Low 50-100 [facility] Very low density lipoprotein (VLDL) cholesterol measurementOrdered By: Jairon Cortezdorcas on 02-28-2024 Very low density lipoprotein (VLDL) cholesterol measurement 9 mg/dL 5-40 [facility] VLDL Cholesterol 9 mg/dL 5-40 [facility] White blood cell (WBC) count Ordered By: Goldiemakenzie Torojenifersophia on 02-28-2024 WBC (Bld) [#/Vol] 6.4 10*3/uL 4.4-11.0 [facility] .Auto Diffon 02-10-2024 Basophil, Absolute 0.1 10 3/mcL Normal 0.0-0.2 [facility] Comment on above: Performed By: #### B MP, MG, ANEU, ADIFF, CBC, GFR ####[address] [address] Basophils/100 WBC (Bld) 1.1 % Normal 0.0-2.5 [facility] Comment on above: Performed By: #### B MP, MG, ANEU, ADIFF, CBC, GFR ####[place] [address] [place], [place] [address] Eosinophil, Absolute 0.1 10 3/mcL Normal 0.0-0.[address] [facility] Comment on above: Performed By: #### B MP, MG, ANEU, ADIFF, CBC, GFR ####[place] [address] [place], [place] [address] Eosinophils/100 WBC (Bld) 1.8 % Normal 0.0-7.0 [facility] Comment on above: Performed By: #### B MP, MG, ANEU, ADIFF, CBC, GFR ####[place] [address] [place], [place] [address] Lymphocyte, Absolute 1.4 10 3/mcL Normal 0.9-4.[address] [facility] Comment on above: Performed By: #### B MP, MG, ANEU, ADIFF, CBC, GFR ####[place] [address] [place], [place] [address] Lymphocytes/100 WBC (Bld) 25.4 % Normal 20.0-40.0 [facility] Comment on above: Performed By: #### B MP, MG, ANEU, ADIFF, CBC, GFR ####[place] [address] [place], [place] [address] Monocyte, Absolute 0.4 10 3/mcL Normal 0.1-1.4 [facility] Comment on above: Performed By: #### B MP, MG, ANEU, ADIFF, CBC, GFR ####[place] [address] [address] Monocytes/100 WBC (Bld) 7.4 % Normal 2.0-13.0 [facility] Comment on above: Performed By: #### B MP, MG, ANEU, ADIFF, CBC, GFR ####[place] [address] [place], [place] [address] Neutrophils/100 WBC (Bld) 64.3 % Normal 50.0-75.0 [facility] Comment on above: Performed By: #### B MP, MG, ANEU, ADIFF, CBC, GFR ####[place] [address] [place], [place] [address] .GFRon 02-10-2024 GFR 73 ml/min/1.73sqm Normal [facility] Comment on above: Result Comment: GFR [...] B MP, MG, ANEU, ADIFF, CBC, GFR ####[facility] [place], [place] [address] GFR Non- 60 ml/min/1.73sqm Normal [facility] Comment on above: Result Comment: GFR [...] B MP, MG, ANEU, ADIFF, CBC, GFR ####[facility] [place], [place] [address] .NEUABSon 02-10-2024 Neutrophil, Absolute 3.7 10 3/mcL Normal 2.3-8.[address] [facility] Comment on above: Performed By: #### B MP, MG, ANEU, ADIFF, CBC, GFR ####[facility] [place], [place] [address] BMPon 02-10-2024 BUN/Creatinine Ratio 25 ratio Normal 7-27 [facility] Comment on above: Performed By: #### B MP, MG, ANEU, ADIFF, CBC, GFR ####[address] [address] Calcium [Mass/Vol] 10.0 mg/dL Normal 8.4-10.2 [facility] Comment on above: Performed By: #### B MP, MG, ANEU, ADIFF, CBC, GFR ####[address] [address] Chloride [Moles/Vol] 107 mmol/L Normal 98-107 [facility] Comment on above: Performed By: #### B MP, MG, ANEU, ADIFF, CBC, GFR ####[address] [address] CO2 [Moles/Vol] 30 mmol/L Normal 23-31 [facility] Comment on above: Performed By: #### B MP, MG, ANEU, ADIFF, CBC, GFR ####[address] [address] Creatinine [Mass/Vol] 0.89 mg/dL Normal 0.55-1.02 [facility] Comment on above: Result Comment: Test ing performed on Siemens Dimension EXL analyzer using a modified kinetic Dora technique. Performed By: #### B MP, MG, ANEU, ADIFF, CBC, GFR ####[address] [address] Electrolyte Balance 8.0 mEq/L Normal 4.0-15.0 [facility] Comment on above: Performed By: #### B MP, MG, ANEU, ADIFF, CBC, GFR ####[address] [address] Glucose [Mass/Vol] 111 mg/dL High 83-110 [facility] Comment on above: Performed By: #### B MP, MG, ANEU, ADIFF, CBC, GFR ####[place] [address] [address] [place], [place] [address] Potassium [Moles/Vol] 4.0 mmol/L Normal 3.5-5.1 [facility] Comment on above: Performed By: #### B MP, MG, ANEU, ADIFF, CBC, GFR ####[place] [address] [address] Sodium [Moles/Vol] 145 mmol/L Normal 136-145 [facility] Comment on above: Performed By: #### B MP, MG, ANEU, ADIFF, CBC, GFR ####[place] [address] Urea nitrogen [Mass/Vol] 22 mg/dL High 7-18 [facility] Comment on above: Performed By: #### B MP, MG, ANEU, ADIFF, CBC, GFR ####[address] [address] CBCon 02-10-2024 Erythrocyte distribution width (RBC) [Ratio] 14.1 % Normal 11.5-15.5 [facility] Comment on above: Performed By: #### B MP, MG, ANEU, ADIFF, CBC, GFR ####[address] [address] Hematocrit (Bld) [Volume fraction] 33.2 % Low 34.0-46.0 [facility] Comment on above: Performed By: #### B MP, MG, ANEU, ADIFF, CBC, GFR ####[place] [address] [address] Hgb 11.3 G/dL Low 12.0-16.0 [facility] Comment on above: Performed By: #### B MP, MG, ANEU, ADIFF, CBC, GFR ####[place] [address] [address] MCH (RBC) [Entitic mass] 28.8 pg Normal 27.0-33.0 [facility] Comment on above: Performed By: #### B MP, MG, ANEU, ADIFF, CBC, GFR ####[place] [address] [place], [place] [address] MCHC 34.1 G/dL Normal 32.0-36.0 [facility] Comment on above: Performed By: #### B MP, MG, ANEU, ADIFF, CBC, GFR ####[address] [address] [place], [place] [address] MCV (RBC) [Entitic vol] 84.5 fL Normal 80.0-99.0 [facility] Comment on above: Performed By: #### B MP, MG, ANEU, ADIFF, CBC, GFR ####[place] [address] [place], [place] [address] Platelet 272 10 3/mcL Normal 150-450 [facility] Comment on above: Performed By: #### B MP, MG, ANEU, ADIFF, CBC, GFR ####[place] [address] [place] [id number] Platelet mean volume (Bld) [Entitic vol] 7.7 fL Normal 6.6-10.5 [facility] Comment on above: Performed By: #### B MP, MG, ANEU, ADIFF, CBC, GFR ####[place] [address] [place], [place] [address] RBC 3.93 10 6/mcL Low 4.10-5.30 [facility] Comment on above: Performed By: #### B MP, MG, ANEU, ADIFF, CBC, GFR ####[place] [address] [place], [place] [address] WBC 5.7 10 3/mcL Normal 4.5-10.8 [facility] Comment on above: Performed By: #### B MP, MG, ANEU, ADIFF, CBC, GFR ####[address] [address] [place], [place] [address] LABORATORYOrdered By: SYSTEM SYSTEM on 02-10-2024 Basophils [...] above: Interpretive Data: T esting performed on [employer] Dimension EXL analyzer using a modified kinetic [...] 02-10-2024 Magnesium [Mass/Vol] 1.7 mg/dL Low 1.8-2.4 [facility] Comment on above: Performed By: #### B MP, MG, ANEU, ADIFF, CBC, GFR ####[place] [address] [place], [place] [address] .Auto Diffon 02-09-2024 Basophil, Absolute 0.1 10 3/mcL Normal 0.0-0.2 [facility] Comment on above: Performed By: #### B NAFISA MCHUGH, GFR, ANEU, TROPHS, PBNP, CBC, ADIFF ####[place] [address] [place], [place] [address] Basophils/100 WBC (Bld) 1.1 % Normal 0.0-2.5 [facility] Comment on above: Performed By: #### B MD JEISONW, GFR, ANEU, TROPHS, PBNP, CBC, ADIFF ####[address] [address] [place], [place] [address] Eosinophil, Absolute 0.1 10 3/mcL Normal 0.0-0.[address] [facility] Comment on above: Performed By: #### B MP, MDW, GFR, ANEU, TROPHS, PBNP, CBC, ADIFF ####[place] [address] [place], [place] [address] Eosinophils/100 WBC (Bld) 1.6 % Normal 0.0-7.0 [facility] Comment on above: Performed By: #### B JEISON, W, GFR, ANEU, TROPHS, PBNP, CBC, ADIFF ####[place] [address] [place], [place] [address] Lymphocyte, Absolute 2.2 10 3/mcL Normal 0.9-4.[address] [facility] Comment on above: Performed By: #### B JEISON, W, GFR, ANEU, TROPHS, PBNP, CBC, ADIFF ####[place] [address] [place], [place] [address] Lymphocytes/100 WBC (Bld) 29.4 % Normal 20.0-40.0 [facility] Comment on above: Performed By: #### B JEISON, W, GFR, ANEU, TROPHS, PBNP, CBC, ADIFF ####[place] [address] [place], [place] [address] Monocyte, Absolute 0.7 10 3/mcL Normal 0.1-1.4 [facility] Comment on above: Performed By: #### B JEISON, NAFISA, GFR, ANEU, TROPHS, PBNP, CBC, ADIFF ####[place] [address] [place], [place] [address] Monocytes/100 WBC (Bld) 9.6 % Normal 2.0-13.0 [facility] Comment on above: Performed By: #### B JEISON, NAFISA, GFR, ANEU, TROPHS, PBNP, CBC, ADIFF ####[place] [address] [place], [place] [address] Neutrophils/100 WBC (Bld) 58.3 % Normal 50.0-75.0 [facility] Comment on above: Performed By: #### B JEISON, W, GFR, ANEU, TROPHS, PBNP, CBC, ADIFF ####[place] [address] [place], [place] [address] .GFRon 02-09-2024 GFR 67 ml/min/1.73sqm Normal [facility] Comment on above: Result Comment: GFR [...] GFR, ANEU, TROPHS, PBNP, CBC, ADIFF ####[address] [place], [place] [address] GFR Non- 55 ml/min/1.73sqm Normal [facility] Comment on above: Result Comment: GFR [...] GFR, ANEU, TROPHS, PBNP, CBC, ADIFF ####[place] [address] [place], [place] [address] .MDWon 02-09-2024 Monocyte Distribution Width 17.09 Normal 0.00-20.00 [facility] Comment on above: Result Comment: For ED adult patients suspected of sepsis, MDW<=20.0 does not rule out sepsis or risk of sepsis Performed By: #### B JEISON, NAFISA, GFR, ANEU, TROPHS, PBNP, CBC, ADIFF ####[facility] [place], [place] [address] .NEUABSon 02-09-2024 Neutrophil, Absolute 4.4 10 3/mcL Normal 2.3-8.[address] [facility] Comment on above: Performed By: #### B JEISON, NAFISA, GFR, ANEU, TROPHS, PBNP, CBC, ADIFF ####[place] [address] [place], [place] [address] BMPon 02-09-2024 BUN/Creatinine Ratio 26 ratio Normal 7-27 [facility] Comment on above: Performed By: #### B NAFISA MCHUGH, GFR, ANEU, TROPHS, PBNP, CBC, ADIFF ####[place] [address] [place], [place] [address] Calcium [Mass/Vol] 10.4 mg/dL High 8.4-10.2 [facility] Comment on above: Performed By: #### B NAFISA MCHUGH, GFR, ANEU, TROPHS, PBNP, CBC, ADIFF ####[place] [address] [place], [place] [address] Chloride [Moles/Vol] 104 mmol/L Normal 98-107 [facility] Comment on above: Performed By: #### B NAFISA MCHUGH, GFR, ANEU, TROPHS, PBNP, CBC, ADIFF ####[place] [address] [place], [place] [address] CO2 [Moles/Vol] 30 mmol/L Normal 23-31 [facility] Comment on above: Performed By: #### B NAFISA MCHUGH, GFR, ANEU, TROPHS, PBNP, CBC, ADIFF ####[place] [address] [place], [place] [address] Creatinine [Mass/Vol] 0.96 mg/dL Normal 0.55-1.02 [facility] Comment on above: Result Comment: Test ing performed on Siemens Dimension EXL analyzer using a modified kinetic Dora technique. Performed By: #### B MP, MDW, GFR, ANEU, TROPHS, PBNP, CBC, ADIFF ####[place] [address] [place], [place] [address] Electrolyte Balance 10.0 mEq/L Normal 4.0-15.0 [facility] Comment on above: Performed By: #### B MP, MDW, GFR, ANEU, TROPHS, PBNP, CBC, ADIFF ####[place] [address] [place], [place] [address] Glucose [Mass/Vol] 108 mg/dL Normal 83-110 [facility] Comment on above: Performed By: #### B JEISON, W, GFR, ANEU, TROPHS, PBNP, CBC, ADIFF ####[place] [address] [place], [place] [address] Potassium [Moles/Vol] 3.6 mmol/L Normal 3.5-5.1 [facility] Comment on above: Performed By: #### B JEISON, W, GFR, ANEU, TROPHS, PBNP, CBC, ADIFF ####[place] [address] [place], [place] [address] Sodium [Moles/Vol] 144 mmol/L Normal 136-145 [facility] Comment on above: Performed By: #### B JEISON, W, GFR, ANEU, TROPHS, PBNP, CBC, ADIFF ####[place] [address] [place], [place] [address] Urea nitrogen [Mass/Vol] 25 mg/dL High 7-18 [facility] Comment on above: Performed By: #### B JEISON, NAFISA, GFR, ANEU, TROPHS, PBNP, CBC, ADIFF ####[place] [address] [place], [place] [address] CBCon 02-09-2024 Erythrocyte distribution width (RBC) [Ratio] 14.0 % Normal 11.5-15.5 [facility] Comment on above: Performed By: #### B JEISON, W, GFR, ANEU, TROPHS, PBNP, CBC, ADIFF ####[place] [address] [place] [address] Hematocrit (Bld) [Volume fraction] 34.7 % Normal 34.0-46.0 [facility] Comment on above: Performed By: #### B NAFISA MCHUGH, GFR, ANEU, TROPHS, PBNP, CBC, ADIFF ####[place] [address] [place], [place] [address] Hgb 11.7 G/dL Low 12.0-16.0 [facility] Comment on above: Performed By: #### B NAFISA MCHUGH, GFR, ANEU, TROPHS, PBNP, CBC, ADIFF ####[place] [address] [place], [place] [address] MCH (RBC) [Entitic mass] 28.7 pg Normal 27.0-33.0 [facility] Comment on above: Performed By: #### B NAFISA MCHUGH, GFR, ANEU, TROPHS, PBNP, CBC, ADIFF ####[place] [address] [place], [place] [address] MCHC 33.7 G/dL Normal 32.0-36.0 [facility] Comment on above: Performed By: #### B NAFISA MCHUGH, GFR, ANEU, TROPHS, PBNP, CBC, ADIFF ####[place] [address] [place], [place] [address] MCV (RBC) [Entitic vol] 85.0 fL Normal 80.0-99.0 [facility] Comment on above: Performed By: #### B NAFISA MCHUGH, GFR, ANEU, TROPHS, PBNP, CBC, ADIFF ####[place] [address] [place], [place] [address] Platelet 266 10 3/mcL Normal 150-450 [facility] Comment on above: Performed By: #### B NAFISA MCHUGH, GFR, ANEU, TROPHS, PBNP, CBC, ADIFF ####[place] [address] [place], [place] [address] Platelet mean volume (Bld) [Entitic vol] 7.4 fL Normal 6.6-10.5 [facility] Comment on above: Performed By: #### B NAFISA MCHUGH, GFR, ANEU, TROPHS, PBNP, CBC, ADIFF ####[place] [address] [place], [place] [address] RBC 4.08 10 6/mcL Low 4.10-5.30 [facility] Comment on above: Performed By: #### B JEISON, NAFISA, GFR, ANEU, TROPHS, PBNP, CBC, ADIFF ####[place] [address] [place], [place] [address] WBC 7.6 10 3/mcL Normal 4.5-10.8 [facility] Comment on above: Performed By: #### B JEISON, NAFISA, GFR, ANEU, TROPHS, PBNP, CBC, ADIFF ####[place] [address] [place], [place] [address] LABORATORYOrdered By: Addis Pelayo on 02-09-2024 Appearance [...] ng/L Male: 0-76 ng/L Testing performed on Rad using a homogeneous sandwich chemiluminescent immunoassay based on [employer] technology. Urea nitrogen [Mass/Vol] 25 mg/dL High 7 - 18 mg/dL AO ADM SS Urea nitrogen/Creatinine [Mass ratio] 26 ratio Normal 7 - 27 ratio AO ADM SS WBC (Bld) [#/Vol] 7.6 103/mcL Normal 4.5 - 10.8 10^3/mcL AO Workflow SS PBNPon 02-09-2024 Natriuretic peptide B (Bld) [Mass/Vol] 3243 pg/mL High 0-450 [facility] Comment on above: Result Comment: NT-p roBNP results of less than 300 pg/mL effectively rules out acute congestive heart failure with 99% negative predictive value. Performed By: #### B NAFISA MCHUGH, GFR, ANEU, TROPHS, PBNP, CBC, ADIFF ####[place] [address] [place], [place] [address] TROPHSon 02-09-2024 High Sensitivity Troponin I 23 ng/L Normal 0-51 [facility] Comment on above: Result Comment: High Sensitive Troponin I Reference Ranges: Female: 0-51 ng/L Male: 0-76 ng/L Testing performed on Rad using a homogeneous sandwich chemiluminescent immunoassay based on [employer] technology. Performed By: #### B NAFISA MCHUGH, GFR, ANEU, TROPHS, PBNP, CBC, ADIFF ####[place] [address] [place] [address] UAon 02-09-2024 Color (U) Yellow Normal [facility] Comment on above: Performed By: #### U A ####[place] [address] [place] [address] Glucose (U) [Mass/Vol] Negative Normal Negative [facility] Comment on above: Performed By: #### U A ####[place] [address] [place] [address] Ketones Ql (U) Negative Normal Negative [facility] Comment on above: Performed By: #### U A ####[place] [address] [place] [address] UA Appear Clear Normal Clear [facility] Comment on above: Performed By: #### U A ####[place] [address] [place] [address] UA Blood Negative Normal Negative [facility] Comment on above: Performed By: #### U A ####[place] [address] [place] [address] UA Leuk Est Negative Normal Negative [facility] Comment on above: Performed By: #### U A ####[place] [address] [place] [address] UA Nitrite Negative Normal Negative [facility] Comment on above: Performed By: #### U A ####[address] [address] [place], [place] [address] UA pH 6.5 Normal 5.0 - 8.0 [facility] Comment on above: Performed By: #### U A ####[address] [place], [place] [address] UA Protein Negative Normal Negative [facility] Comment on above: Performed By: #### U A ####[address]rell [id number] [place], [place] [address] UA Spec Grav 1.015 Normal 1.015-1.025 [facility] Comment on above: Performed By: #### U A ####[id number] [place] [address] UA Specimen Type Void Normal [facility] Comment on above: Performed By: #### U A ####Jerrell [id number] [place], [place] [address] UA Urobilinogen 0.2 E.U./dL Normal 0.2-1.0 [facility] Comment on above: Performed By: #### U A ####[address] [place], [place] [address] Urobilinogen (U) [Mass/Vol] Negative Normal Negative [facility] Comment on above: Performed By: #### U A ####[facility] [place], [place] [address] VALPRon 02-09-2024 LDose Valproic Acid: Unknown Normal [facility] Comment on above: Performed By: #### V ALPR ####[address] [place], [place] [address] Valproic Acid Lvl 30 mcg/mL Low 50-100 [facility] Comment on above: Performed By: #### V ALPR ####[address] [place], [place] [address] XR CHEST 1 VIEWon 02-09-2024 XR CHEST [...] 9:08:10 PM Ordering Provider: TRIXIE BARONE Normal [facility] .Urinalysis Microscopic (AO) on 01-21-2024 UA Amorphus 1+ /hpf Normal [facility] Comment on above: Performed By: #### U A, UAMICAO ####[place] [address] UA CA Ox Crystal 1+ /hpf Normal [facility] Comment on above: Performed By: #### U A, UAMICAO ####[place] [address] UA Mucous 2+ /hpf Normal [facility] Comment on above: Performed By: #### U A, UAMICAO ####[place] [address] UA RBC 0-5 Abnormal None Seen [facility] Comment on above: Performed By: #### U A, UAMICAO ####[place] [address] [place] [address] UA Squam Epithelial 0-5 Abnormal None Seen [facility] Comment on above: Performed By: #### U A, UAMICAO ####[place] [address] [place] [address] UA WBC 0-5 Abnormal None Seen [facility] Comment on above: Performed By: #### U A, UAMICAO ####[place] [address] [place] [address] LABORATORYOrdered By: Mao Nava on 01-21-2024 Appearance [...] SS UAon 01-21-2024 Color (U) Yellow Normal [facility] Comment on above: Performed By: #### U A, UAMICAO ####[address] [address] Glucose (U) [Mass/Vol] Negative Normal Negative [facility] Comment on above: Performed By: #### U A, UAMICAO ####[address] [place] [address] Ketones Ql (U) Negative Normal Negative [facility] Comment on above: Performed By: #### U A, UAMICAO ####[address] [place] [address] UA Appear Clear Normal Clear [facility] Comment on above: Performed By: #### U A, UAMICAO ####[address] [place] [address] UA Blood Negative Normal Negative [facility] Comment on above: Performed By: #### U A, UAMICAO ####[address] [place] [address] UA Leuk Est Negative Normal Negative [facility] Comment on above: Performed By: #### U A, UAMICAO ####[address] [place] [address] UA Nitrite Negative Normal Negative [facility] Comment on above: Performed By: #### U A, UAMICAO ####[address] [place] [address] UA pH 6.0 Normal 5.0 - 8.0 [facility] Comment on above: Performed By: #### U A, UAMICAO ####[address] [place] [address] UA Protein 30 mg/dL Normal Negative [facility] Comment on above: Performed By: #### U A, UAMICAO ####[address] [place] [address] UA Spec Grav 1.020 Normal 1.015-1.025 [facility] Comment on above: Performed By: #### U A, UAMICAO ####[address] [place] [address] UA Specimen Type Hua Catheter Normal [facility] Comment on above: Performed By: #### U A, UAMICAO ####[address] [place] [address] UA Urobilinogen 0.2 E.U./dL Normal 0.2-1.0 [facility] Comment on above: Performed By: #### U KRISHNA Jeter ####[address] [place], [place] [address] Urobilinogen (U) [Mass/Vol] Negative Normal Negative [facility] Comment on above: Performed By: #### U KRISHNA Jeter ####[address] [place], [place] [address] US BLADDERon 01-07-2024 US BLADDER ORIGINAL EXAMINATION: [...] 01/07/2024 11:24:46 AM Ordering Provider: LARRY Geronimo [facility] .GFRon 12-29-2023 GFR 54 ml/min/1.73sqm [facility] Comment on above: Result Comment: GFR Population [...] square meters Performed By: #### G FR, LINDA, JANIA ####[facility] [place], [place] [address] GFR Non- 44 ml/min/1.73sqm Normal [facility] Comment on above: Result Comment: GFR [...] Performed By: #### G FR, BMP, CAION ####[place] [address] [place], [place] [address] BMPon 12-29-2023 BUN/Creatinine Ratio 20 ratio Normal 7-27 [facility] Comment on above: Performed By: #### Francoise FR, BMP, CAION ####[place] [address] [place], [place] [address] Calcium [Mass/Vol] 10.3 mg/dL High 8.4-10.2 [facility] Comment on above: Performed By: #### Francoise FR, BMP, CAION ####[place] [address] [place], [place] [address] Chloride [Moles/Vol] 104 mmol/L Normal 98-107 [facility] Comment on above: Performed By: #### Francoise FR, BMP, CAION ####[place] [address] [place], [place] [address] CO2 [Moles/Vol] 31 mmol/L Normal 23-31 [facility] Comment on above: Performed By: #### G FR, BMP, CAION ####[place] [address] [place], [place] [address] Creatinine [Mass/Vol] 1.16 mg/dL High 0.55-1.02 [facility] Comment on above: Result Comment: Test ing performed on Siemens Dimension EXL analyzer using a modified kinetic Dora technique. Performed By: #### LINDA SOLIS CAION ####[address] [place], [place] [address] Electrolyte Balance 7.0 mEq/L Normal 4.0-15.0 [facility] Comment on above: Performed By: #### LINDA SOLIS CAION ####[address] [place], [place] [address] Glucose [Mass/Vol] 92 mg/dL Normal 83-110 [facility] Comment on above: Performed By: #### LINDA SOLIS CAION ####[address] [place], [place] [address] Potassium [Moles/Vol] 4.2 mmol/L Normal 3.5-5.1 [facility] Comment on above: Performed By: #### LINDA SOLIS CAION ####[address] [place], [place] [address] Sodium [Moles/Vol] 142 mmol/L Normal 136-145 [facility] Comment on above: Performed By: #### LINDA SOLIS CAION ####[address] [place], [place] [address] Urea nitrogen [Mass/Vol] 23 mg/dL High 7-18 [facility] Comment on above: Performed By: #### LINDA SOLIS CAION ####[address] [place], [place] [address] CAIONon 12-29-2023 Calcium Ionized 1.27 mmol/L Normal 1.12-1.32 [facility] Comment on above: Performed By: #### LINDA SOLIS CAION ####[address] [place], [place] [address] LABORATORYOrdered By: SYSTEM SYSTEM on 12-29-2023 Calcium [...] Date: 12/21/2023 4:21:17 PM Ordering Provider: LARRY Geronimo [facility] XR SPINE LUMBAR W/OBLIQUES 4 VIEWSon 12-21-2023 [...] 12/21/2023 4:34:05 PM Ordering Provider: LARRY Geronimo [facility] B12on 12-16-2023 Cobalamin (Vitamin B12) [Mass/Vol] 509 pg/mL Normal 211-911 [facility] Comment on above: Performed By: #### F ES, FERR ####[place] [address]#### B12, FOL ####[place] [address] FOLon 12-16-2023 Folate >48.00 High 5.38-24.00 [facility] Comment on above: Performed By: #### F ES, FERR ####[place] [address]#### B12, FOL ####[place] [address] .Auto Diffon 12-15-2023 Basophil, Absolute 0.1 10 3/mcL Normal 0.0-0.2 [facility] Comment on above: Performed By: #### C MP, ADIFF, CBC, GFR, PBNP, ANEU #### [place] [address] Basophils/100 WBC (Bld) 1.1 % Normal 0.0-2.5 [facility] Comment on above: Performed By: #### C MP, ADIFF, CBC, GFR, PBNP, ANEU #### [place] [address] [place], [place] [address] Eosinophil, Absolute 0.1 10 3/mcL Normal 0.0-0.[address] [facility] Comment on above: Performed By: #### C MP, ADIFF, CBC, GFR, PBNP, ANEU #### [address] [address] Eosinophils/100 WBC (Bld) 1.4 % Normal 0.0-7.0 [facility] Comment on above: Performed By: #### C MP, ADIFF, CBC, GFR, PBNP, ANEU #### [address] [address] Lymphocyte, Absolute 1.7 10 3/mcL Normal 0.9-4.[address] [facility] Comment on above: Performed By: #### C MP, ADIFF, CBC, GFR, PBNP, ANEU #### [address] [address] Lymphocytes/100 WBC (Bld) 20.9 % Normal 20.0-40.0 [facility] Comment on above: Performed By: #### C MP, ADIFF, CBC, GFR, PBNP, ANEU #### [address] [address] Monocyte, Absolute 0.5 10 3/mcL Normal 0.1-1.4 [facility] Comment on above: Performed By: #### C MP, ADIFF, CBC, GFR, PBNP, ANEU #### [address] [address] Monocytes/100 WBC (Bld) 6.0 % Normal 2.0-13.0 [facility] Comment on above: Performed By: #### C MP, ADIFF, CBC, GFR, PBNP, ANEU #### [address] [address] Neutrophils/100 WBC (Bld) 70.6 % Normal 50.0-75.0 [facility] Comment on above: Performed By: #### C MP, ADIFF, CBC, GFR, PBNP, ANEU #### [address] [address] .GFRon 12-15-2023 GFR 62 ml/min/1.73sqm Normal [facility] Comment on above: Result Comment: GFR [...] MP, ADIFF, CBC, GFR, PBNP, ANEU #### [address] [address] GFR Non- 52 ml/min/1.73sqm Normal [facility] Comment on above: Result Comment: GFR [...] MP, ADIFF, CBC, GFR, PBNP, ANEU #### [address] [address] .NEUABSon 12-15-2023 Neutrophil, Absolute 5.8 10 3/mcL Normal 2.3-8.[address] [facility] Comment on above: Performed By: #### C MP, ADIFF, CBC, GFR, PBNP, ANEU #### [address] [address] CBCon 12-15-2023 Erythrocyte distribution width (RBC) [Ratio] 14.2 % Normal 11.5-15.5 [facility] Comment on above: Performed By: #### C MP, ADIFF, CBC, GFR, PBNP, ANEU #### [place] [address] Hematocrit (Bld) [Volume fraction] 34.6 % Normal 34.0-46.0 [facility] Comment on above: Performed By: #### C MP, ADIFF, CBC, GFR, PBNP, ANEU #### [place] [address] Hgb 11.7 G/dL Low 12.0-16.0 [facility] Comment on above: Performed By: #### C MP, ADIFF, CBC, GFR, PBNP, ANEU #### [address] [address] MCH (RBC) [Entitic mass] 28.7 pg Normal 27.0-33.0 [facility] Comment on above: Performed By: #### C MP, ADIFF, CBC, GFR, PBNP, ANEU #### [address] [address] MCHC 33.9 G/dL Normal 32.0-36.0 [facility] Comment on above: Performed By: #### C MP, ADIFF, CBC, GFR, PBNP, ANEU #### [address] [address] MCV (RBC) [Entitic vol] 84.8 fL Normal 80.0-99.0 [facility] Comment on above: Performed By: #### C MP, ADIFF, CBC, GFR, PBNP, ANEU #### [address] [address] Platelet 363 10 3/mcL Normal 150-450 [facility] Comment on above: Performed By: #### C MP, ADIFF, CBC, GFR, PBNP, ANEU #### [address] [address] Platelet mean volume (Bld) [Entitic vol] 7.4 fL Normal 6.6-10.5 [facility] Comment on above: Performed By: #### C MP, ADIFF, CBC, GFR, PBNP, ANEU #### [address] [address] RBC 4.08 10 6/mcL Low 4.10-5.30 [facility] Comment on above: Performed By: #### C MP, ADIFF, CBC, GFR, PBNP, ANEU #### [place] [address] WBC 8.3 10 3/mcL Normal 4.5-10.8 [facility] Comment on above: Performed By: #### C MP, ADIFF, CBC, GFR, PBNP, ANEU #### [address] [address] CMPon 12-15-2023 Albumin Level 3.9 G/dL Normal 3.4-4.8 [facility] Comment on above: Performed By: #### C MP, ADIFF, CBC, GFR, PBNP, ANEU #### [address] [address] Albumin/Globulin [Mass ratio] 1.4 {ratio} Normal 1.1-2.5 [facility] Comment on above: Performed By: #### C MP, ADIFF, CBC, GFR, PBNP, ANEU #### [address] [address] ALP [Catalytic activity/Vol] 72 U/L Normal 40-135 [facility] Comment on above: Performed By: #### C MP, ADIFF, CBC, GFR, PBNP, ANEU #### [address] [address] ALT [Catalytic activity/Vol] 26 U/L Normal 14-59 [facility] Comment on above: Performed By: #### C MP, ADIFF, CBC, GFR, PBNP, ANEU #### [address] [address] AST [Catalytic activity/Vol] 18 U/L Normal 10-40 [facility] Comment on above: Performed By: #### C MP, ADIFF, CBC, GFR, PBNP, ANEU #### [address] [address] Bili Total 0.4 mg/dL Normal 0.2-1.0 [facility] Comment on above: Result Comment: Use of this assay is not recommended for patients undergoing treatment with eltrombopag due to the potential for falsely elevated results. Performed By: #### C MP, ADIFF, CBC, GFR, PBNP, ANEU #### [address] [address] BUN/Creatinine Ratio 20 ratio Normal 7-27 [facility] Comment on above: Performed By: #### C MP, ADIFF, CBC, GFR, PBNP, ANEU #### [address] [address] Calcium [Mass/Vol] 10.8 mg/dL High 8.4-10.2 [facility] Comment on above: Performed By: #### C MP, ADIFF, CBC, GFR, PBNP, ANEU #### [address] [address] Chloride [Moles/Vol] 104 mmol/L Normal 98-107 [facility] Comment on above: Performed By: #### C MP, ADIFF, CBC, GFR, PBNP, ANEU #### [address] [address] CO2 [Moles/Vol] 30 mmol/L Normal 23-31 [facility] Comment on above: Performed By: #### C MP, ADIFF, CBC, GFR, PBNP, ANEU #### [address] [address] Creatinine [Mass/Vol] 1.02 mg/dL Normal 0.55-1.02 [facility] Comment on above: Result Comment: Test ing performed on B[employer]dom Dimension EXL analyzer using a modified kinetic Dora technique. Performed By: #### C MP, ADIFF, CBC, GFR, PBNP, ANEU #### [address] [address] Electrolyte Balance 7.0 mEq/L Normal 4.0-15.0 [facility] Comment on above: Performed By: #### C MP, ADIFF, CBC, GFR, PBNP, ANEU #### [address] [address] Globulin 2.8 G/dL Normal [facility] Comment on above: Performed By: #### C MP, ADIFF, CBC, GFR, PBNP, ANEU #### [address] [address] Glucose [Mass/Vol] 105 mg/dL Normal 83-110 [facility] Comment on above: Performed By: #### C MP, ADIFF, CBC, GFR, PBNP, ANEU #### [address] [address] Potassium [Moles/Vol] 4.2 mmol/L Normal 3.5-5.1 [facility] Comment on above: Performed By: #### C MP, ADIFF, CBC, GFR, PBNP, ANEU #### [address] [address] Sodium [Moles/Vol] 141 mmol/L Normal 136-145 [facility] Comment on above: Performed By: #### C MP, ADIFF, CBC, GFR, PBNP, ANEU #### [address] [address] Total Protein 6.7 G/dL Normal 6.4-8.2 [facility] Comment on above: Performed By: #### C MP, ADIFF, CBC, GFR, PBNP, ANEU #### [address] [address] Urea nitrogen [Mass/Vol] 20 mg/dL High 7-18 [facility] Comment on above: Performed By: #### C MP, ADIFF, CBC, GFR, PBNP, ANEU #### [facility] [address] [place], [place] [address] Lucretia 12-15-2023 Ferritin [Mass/Vol] 197.0 ng/mL Normal 8.0-252.0 [facility] Comment on above: Performed By: #### F ES, FERR ####[place] [address]#### B12, FOL ####[place] [address] FESon 12-15-2023 Iron [Mass/Vol] 44 ug/dL Low 50-170 [facility] Comment on above: Performed By: #### F ES, FERR ####[place] [address]#### B12, FOL ####[place] [address] Iron Sat 15 % Normal [facility] Comment on above: Performed By: #### F ES, FERR ####[place] [address]#### B12, FOL ####[place] [address] TIBC 300 mcg/dL Normal 250-450 [facility] Comment on above: Performed By: #### F ES, FERR ####[place] [address]#### B12, FOL ####[place] [address] LABORATORYOrdered By: SYSTEM SYSTEM on 12-15-2023 Albumin [...] Culture Urine No growth at [facility] PBNPon 12-15-2023 Natriuretic peptide B (Bld) [Mass/Vol] 1968 pg/mL High 0-450 [facility] Comment on above: Result Comment: NT-p roBNP results of less than 300 pg/mL effectively rules out acute congestive heart failure with 99% negative predictive value. Performed By: #### C MP, ADIFF, CBC, GFR, PBNP, ANEU ####[place] [address] [place], [place] [address] LABORATORYOrdered By: Domingo Masterson on 12-09-2023 Appearance [...] SS UAon 12-09-2023 Color (U) Yellow Normal [facility] Comment on above: Performed By: #### U A ####[address] [place], [place] [address] Glucose (U) [Mass/Vol] Negative Normal Negative [facility] Comment on above: Performed By: #### U A ####[address] [address] [place], [place] [address] Ketones Ql (U) Negative Normal Negative [facility] Comment on above: Performed By: #### U A ####[place] [address] [place] [address] UA Appear Clear Normal Clear [facility] Comment on above: Performed By: #### U A ####[address] [address] [place] [address] UA Blood Negative Normal Negative [facility] Comment on above: Performed By: #### U A ####[address] [place] [address] UA Leuk Est Negative Normal Negative [facility] Comment on above: Performed By: #### U A ####[place] [address] [place] [address] UA Nitrite Negative Normal Negative [facility] Comment on above: Performed By: #### U A ####[place] [address] [address] UA pH 7.5 Normal 5.0 - 8.0 [facility] Comment on above: Performed By: #### U A ####[place] [address] [address] UA Protein Negative Normal Negative [facility] Comment on above: Performed By: #### U A ####[place] [address] [place] [address] UA Spec Grav 1.020 Normal 1.015-1.025 [facility] Comment on above: Performed By: #### U A ####[place] [address] UA Specimen Type Clean Catch Normal [facility] Comment on above: Performed By: #### U A ####[place] [address] [place] [address] UA Urobilinogen 0.2 E.U./dL Normal 0.2-1.0 [facility] Comment on above: Performed By: #### U A ####[address] [place] [address] Urobilinogen (U) [Mass/Vol] Negative Normal Negative [facility] Comment on above: Performed By: #### U A ####[facility] [place], [place] [address] XR HIP RIGHT W/PELVIS 4 VIEW Son [...] Date: 11/29/2023 11:51:51 AM Ordering Provider: SONNY Geronimo [facility] .GFRon 07-08-2023 GFR 63 ml/min/1.73sqm Normal [facility] ([place]) Comment on above: Result Comment: [...] FR, A1C, ANEU, CBC, ADIFF, BMP #### [facility] [address] [place], [place] [address] GFR Non- 52 ml/min/1.73sqm Normal [facility] ([place]) Comment on above: Result Comment: [...] FR, A1C, ANEU, CBC, ADIFF, BMP #### [address] [address] BMPon 07-08-2023 BUN/Creatinine Ratio 19 ratio Normal 7-27 [facility] ([place]) Comment on above: Performed By: #### G FR, A1C, ANEU, CBC, ADIFF, BMP #### [address] [address] Calcium [Mass/Vol] 9.6 mg/dL Normal 8.4-10.2 [facility] ([place]) Comment on above: Performed By: #### G FR, A1C, ANEU, CBC, ADIFF, BMP #### [address] [address] Chloride [Moles/Vol] 106 mmol/L Normal 98-107 [facility] ([place]) Comment on above: Performed By: #### G FR, A1C, ANEU, CBC, ADIFF, BMP #### [address] [address] CO2 [Moles/Vol] 29 mmol/L Normal 23-31 [facility] ([place]) Comment on above: Performed By: #### G FR, A1C, ANEU, CBC, ADIFF, BMP #### [address] [address] Creatinine [Mass/Vol] 1.02 mg/dL Normal 0.55-1.02 [facility] ([place]) Comment on above: Performed By: #### G FR, A1C, ANEU, CBC, ADIFF, BMP #### [address] [address] Electrolyte Balance 9.0 mEq/L Normal 4.0-15.0 [facility] ([place]) Comment on above: Performed By: #### G FR, A1C, ANEU, CBC, ADIFF, BMP #### [address] [address] Glucose [Mass/Vol] 118 mg/dL High 83-110 [facility] ([place]) Comment on above: Performed By: #### G FR, A1C, ANEU, CBC, ADIFF, BMP #### [address] [address] Potassium [Moles/Vol] 3.7 mmol/L Normal 3.5-5.1 [facility] ([place]) Comment on above: Performed By: #### G FR, A1C, ANEU, CBC, ADIFF, BMP #### [place] [address] [place], [place] [address] Sodium [Moles/Vol] 144 mmol/L Normal 136-145 [facility] ([place]) Comment on above: Performed By: #### G FR, A1C, ANEU, CBC, ADIFF, BMP #### [address] [address] Urea nitrogen [Mass/Vol] 19 mg/dL High 7-18 [facility] ([place]) Comment on above: Performed By: #### G FR, A1C, ANEU, CBC, ADIFF, BMP #### [address] [address] LABORATORYOrdered By: SYSTEM SYSTEM on 07-08-2023 Calcium [...] 04/14/2023 10:35:22 AM Ordering Provider: MAHAD Geronimo [facility]) METon 04-14-2023 Methylmalonic Acid 340 nmol/L Normal 0-378 [facility]) Comment on above: Result Comment: This test was developed and its performance characteristics [facility] It has not been cleared or approved by the Food and Drug Administration. Performed At: [address] [id number] Hima Lieberman MD Ph:[phone] Performed By: #### G FR, A1C, ANEU, CBC, ADIFF, BMP #### Jer[place] [address] [place], [place] [address] B12on 04-07-2023 Cobalamin (Vitamin B12) [Mass/Vol] 600 pg/mL Normal 211-911 [facility]) Comment on above: Performed By: #### F OL, B12 #### [place] [address] #### FT4, [id number], TSH #### [address] [address] FOLon 04-07-2023 Folate >48.00 High 5.38-24.00 [facility] ([place]) Comment on above: Performed By: #### F OL, B12 #### [place] [address] #### FT4, [id number], TSH #### [place] [id number] FT4on 04-07-2023 Free T4 [Mass/Vol] 0.99 ng/dL Normal 0.76-1.46 [facility] ([place]) Comment on above: Performed By: #### F OL, B12 #### [place] [address] #### FT4, [id number], TSH #### [place] [id number] LABORATORYOrdered By: SYSTEM SYSTEM on 04-07-2023 Cobalamin [...] 04-07-2023 TSH Qn 1.65 m[IU]/L Normal 0.36-3.74 [facility] ([place]) Comment on above: Performed By: #### F OL, B12 #### [place] [address] #### FT4, [id number], TSH #### [address] [address] .Auto Diffon 03-10-2023 Basophil, Absolute 0.1 10 3/mcL Normal 0.0-0.2 [facility] ([place]) Comment on above: Performed By: #### G FR, A1C, ANEU, CBC, ADIFF, BMP #### [address] [address] Basophils/100 WBC (Bld) 1.2 % Normal 0.0-2.5 A [facility] ([place]) Comment on above: Performed By: #### G FR, A1C, ANEU, CBC, ADIFF, BMP #### [address] [address] Eosinophil, Absolute 0.1 10 3/mcL Normal 0.0-0.4 [facility] ([place]) Comment on above: Performed By: #### G FR, A1C, ANEU, CBC, ADIFF, BMP #### [address] [address] Eosinophils/100 WBC (Bld) 1.6 % Normal 0.0-7.0 [facility] ([place]) Comment on above: Performed By: #### G FR, A1C, ANEU, CBC, ADIFF, BMP #### [address] [address] Lymphocyte, Absolute 1.9 10 3/mcL Normal 0.8-3.9 [facility] ([place]) Comment on above: Performed By: #### G FR, A1C, ANEU, CBC, ADIFF, BMP #### [address] [address] Lymphocytes/100 WBC (Bld) 23.7 % Normal 10.0-50.0 [facility] ([place]) Comment on above: Performed By: #### G FR, A1C, ANEU, CBC, ADIFF, BMP #### [address] [address] Monocyte, Absolute 0.6 10 3/mcL Normal 0.2-1.0 [facility] ([place]) Comment on above: Performed By: #### G FR, A1C, ANEU, CBC, ADIFF, BMP #### [address] [address] Monocytes/100 WBC (Bld) 7.8 % Normal 1.7-13.0 A [facility] ([place]) Comment on above: Performed By: #### G FR, A1C, ANEU, CBC, ADIFF, BMP #### [address] [address] Neutrophils/100 WBC (Bld) 65.7 % Normal 37.0-80.0 [facility] ([place]) Comment on above: Performed By: #### G FR, A1C, ANEU, CBC, ADIFF, BMP #### [address] [address] .GFRon 03-10-2023 GFR 63 ml/min/1.73sqm Normal [facility] ([place]) Comment on above: Result Comment: GFR Population [...] FR, A1C, ANEU, CBC, ADIFF, BMP #### [address] [address] GFR Non- 52 ml/min/1.73sqm Normal [facility] ([place]) Comment on above: Result Comment: GFR Population [...] FR, A1C, ANEU, CBC, ADIFF, BMP #### [address] [address] .NEUABSon 03-10-2023 Neutrophil, Absolute 5.2 10 3/mcL Normal 2.9-6.2 [facility] ([place]) Comment on above: Performed By: #### G FR, A1C, ANEU, CBC, ADIFF, BMP #### [place] [address] A1Con 03-10-2023 HbA1c (Bld) [Mass fraction] 5.6 % Normal 4.3-6.4 [facility] ([place]) Comment on above: Performed By: #### G FR, A1C, ANEU, CBC, ADIFF, BMP #### [place] [address] CBCon 03-10-2023 Erythrocyte distribution width (RBC) [Ratio] 14.7 % High 11.5-14.5 [facility] ([place]) Comment on above: Performed By: #### G FR, A1C, ANEU, CBC, ADIFF, BMP #### [place] [address] Hematocrit (Bld) [Volume fraction] 35.6 % Low 37.0-47.0 [facility] ([place]) Comment on above: Performed By: #### G FR, A1C, ANEU, CBC, ADIFF, BMP #### [place] [address] Hgb 12.1 G/dL Normal 12.0-16.0 [facility] ([place]) Comment on above: Performed By: #### G FR, A1C, ANEU, CBC, ADIFF, BMP #### [place] [address] MCH (RBC) [Entitic mass] 27.8 pg Normal 27.0-31.2 [facility] ([place]) Comment on above: Performed By: #### G FR, A1C, ANEU, CBC, ADIFF, BMP #### [address] [address] MCHC 34.1 G/dL Normal 33.0-37.0 [facility] ([place]) Comment on above: Performed By: #### G FR, A1C, ANEU, CBC, ADIFF, BMP #### [address] [address] MCV (RBC) [Entitic vol] 81.7 fL Normal 80.0-94.0 A [facility] ([place]) Comment on above: Performed By: #### G FR, A1C, ANEU, CBC, ADIFF, BMP #### [address] [address] Platelet 300 10 3/mcL Normal 130-400 [facility] ([place]) Comment on above: Performed By: #### G FR, A1C, ANEU, CBC, ADIFF, BMP #### [address] [address] Platelet mean volume (Bld) [Entitic vol] 8.0 fL Normal 7.4-10.4 [facility] ([place]) Comment on above: Performed By: #### G FR, A1C, ANEU, CBC, ADIFF, BMP #### [address] [address] RBC 4.35 10 6/mcL Normal 4.20-5.40 [facility] ([place]) Comment on above: Performed By: #### G FR, A1C, ANEU, CBC, ADIFF, BMP #### [address] [address] WBC 8.0 10 3/mcL Normal 4.6-10.8 [facility] ([place]) Comment on above: Performed By: #### G FR, A1C, ANEU, CBC, ADIFF, BMP #### [address] [address] CMPon 03-10-2023 Chloride [Moles/Vol] 102 mmol/L Normal 98-107 [facility] ([place]) Comment on above: Performed By: #### G FR, A1C, ANEU, CBC, ADIFF, BMP #### [address] [address] Electrolyte Balance 10.0 mEq/L Normal 4.0-15.0 [facility] ([place]) Comment on above: Performed By: #### G FR, A1C, ANEU, CBC, ADIFF, BMP #### [address] [address] Potassium [Moles/Vol] 4.3 mmol/L Normal 3.5-5.1 [facility] ([place]) Comment on above: Performed By: #### G FR, A1C, ANEU, CBC, ADIFF, BMP #### [address] [address] Sodium [Moles/Vol] 141 mmol/L Normal 136-145 [facility] ([place]) Comment on above: Performed By: #### G FR, A1C, ANEU, CBC, ADIFF, BMP #### [address] [address] Albumin Level 3.7 G/dL Normal 3.4-4.8 [facility] ([place]) Comment on above: Performed By: #### G FR, A1C, ANEU, CBC, ADIFF, BMP #### [address] [address] Albumin/Globulin [Mass ratio] 1.1 {ratio} Normal 1.1-2.5 [facility] ([place]) Comment on above: Performed By: #### G FR, A1C, ANEU, CBC, ADIFF, BMP #### [address] [address] ALP [Catalytic activity/Vol] 79 U/L Normal 40-135 [facility] ([place]) Comment on above: Performed By: #### G FR, A1C, ANEU, CBC, ADIFF, BMP #### [address] [address] ALT [Catalytic activity/Vol] 24 U/L Normal 14-59 [facility] ([place]) Comment on above: Performed By: #### G FR, A1C, ANEU, CBC, ADIFF, BMP #### [address] [address] AST [Catalytic activity/Vol] 12 U/L Normal 10-40 [facility] ([place]) Comment on above: Performed By: #### G FR, A1C, ANEU, CBC, ADIFF, BMP #### [address] [address] Bili Total 0.3 mg/dL Normal 0.2-1.0 [facility] ([place]) Comment on above: Result Comment: Use of this assay is not recommended for patients undergoing treatment with eltrombopag due to the potential for falsely elevated results. Performed By: #### G FR, A1C, ANEU, CBC, ADIFF, BMP #### [address] [address] BUN/Creatinine Ratio 25 ratio Normal 7-27 [facility] ([place]) Comment on above: Performed By: #### G FR, A1C, ANEU, CBC, ADIFF, BMP #### [address] [address] Calcium [Mass/Vol] 10.1 mg/dL Normal 8.4-10.2 [facility] ([place]) Comment on above: Performed By: #### G FR, A1C, ANEU, CBC, ADIFF, BMP #### [address] [address] CO2 [Moles/Vol] 29 mmol/L Normal 23-31 [facility] ([place]) Comment on above: Performed By: #### G FR, A1C, ANEU, CBC, ADIFF, BMP #### [address] [address] Creatinine [Mass/Vol] 1.02 mg/dL Normal 0.55-1.02 [facility] ([place]) Comment on above: Performed By: #### G FR, A1C, ANEU, CBC, ADIFF, BMP #### [address] [address] Globulin 3.3 G/dL Normal [facility] ([place]) Comment on above: Performed By: #### G FR, A1C, ANEU, CBC, ADIFF, BMP #### [address] [address] Glucose [Mass/Vol] 118 mg/dL High 83-110 [facility] ([place]) Comment on above: Performed By: #### G FR, A1C, ANEU, CBC, ADIFF, BMP #### [address] [address] Total Protein 7.0 G/dL Normal 6.4-8.2 [facility] ([place]) Comment on above: Performed By: #### G FR, A1C, ANEU, CBC, ADIFF, BMP #### [address] [address] Urea nitrogen [Mass/Vol] 26 mg/dL High 7-18 [facility] ([place]) Comment on above: Performed By: #### G FR, A1C, ANEU, CBC, ADIFF, BMP #### [address] [address] LIPIDon 03-10-2023 Cholesterol [Mass/Vol] 214 mg/dL High 0-200 [facility] ([place]) Comment on above: Result Comment: Chol esterol Reference Interval: Less than 200 Desirable 200-239 Borderline high risk 240 and above High risk Performed By: #### G FR, A1C, ANEU, CBC, ADIFF, BMP #### [address] [address] Cholesterol in HDL [Mass/Vol] 62 mg/dL High 40-60 [facility] ([place]) Comment on above: Performed By: #### G FR, A1C, ANEU, CBC, ADIFF, BMP #### [address] [address] Cholesterol in LDL [Mass/Vol] 111 mg/dL Normal 0-130 [facility] ([place]) Comment on above: Performed By: #### G FR, A1C, ANEU, CBC, ADIFF, BMP #### [address] [address] Triglyceride [Mass/Vol] 205 mg/dL High 0-150 [facility] ([place]) Comment on above: Result Comment: Trig lyceride Reference Interval: Less than 150 Normal 150-199 Borderline high risk 200-499 High risk 500 or higher Very high risk Performed By: #### G FR, A1C, ANEU, CBC, ADIFF, BMP #### [place] [address] PHOSon 03-10-2023 Phosphate [Mass/Vol] 3.2 mg/dL Normal 2.3-4.1 [facility] ([place]) Comment on above: Performed By: #### G FR, A1C, ANEU, CBC, ADIFF, BMP #### [place] [address] PTHon 03-10-2023 PTH, Intact 78.2 pg/mL Normal 18.5-88.0 [facility] ([place]) Comment on above: Performed By: #### G FR, A1C, ANEU, CBC, ADIFF, BMP #### [place] [address] VIDHon 03-10-2023 Vit. D 25-Hydroxy 32.1 ng/mL Normal [facility] ([place]) Comment on above: Result Comment: Inte rpretive Values Based on Total 25(OH) Vitamin D: Deficient <20 ng/mL Insufficient 20 - <30 ng/mL Sufficient 30-100 ng/mL Performed By: #### G FR, A1C, ANEU, CBC, ADIFF, BMP #### [place] [address] BD BONE DENSITY DEXA AXIAL S KELETONon [...] 12/14/2022 9:37:25 AM Ordering Provider: LARRY Geronimo [facility] ([place]) .Auto Diffon 09-16-2022 Basophil, Absolute 0.1 10 3/mcL Normal 0.0-0.2 [facility] ([place]) Comment on above: Performed By: #### G FR, A1C, ANEU, CBC, ADIFF, BMP #### [address] [address] Basophils/100 WBC (Bld) 0.8 % Normal 0.0-2.5 A [facility] ([place]) Comment on above: Performed By: #### G FR, A1C, ANEU, CBC, ADIFF, BMP #### [address] [address] Eosinophil, Absolute 0.2 10 3/mcL Normal 0.0-0.4 [facility] ([place]) Comment on above: Performed By: #### G FR, A1C, ANEU, CBC, ADIFF, BMP #### [address] [address] Eosinophils/100 WBC (Bld) 2.1 % Normal 0.0-7.0 [facility] ([place]) Comment on above: Performed By: #### G FR, A1C, ANEU, CBC, ADIFF, BMP #### [address] [address] Lymphocyte, Absolute 2.0 10 3/mcL Normal 0.8-3.9 [facility] ([place]) Comment on above: Performed By: #### G FR, A1C, ANEU, CBC, ADIFF, BMP #### [address] [address] Lymphocytes/100 WBC (Bld) 22.9 % Normal 10.0-50.0 [facility] ([place]) Comment on above: Performed By: #### G FR, A1C, ANEU, CBC, ADIFF, BMP #### [address] [address] Monocyte, Absolute 0.5 10 3/mcL Normal 0.2-1.0 [facility] ([place]) Comment on above: Performed By: #### G FR, A1C, ANEU, CBC, ADIFF, BMP #### [address] [address] Monocytes/100 WBC (Bld) 6.4 % Normal 1.7-13.0 [facility] ([place]) Comment on above: Performed By: #### G FR, A1C, ANEU, CBC, ADIFF, BMP #### [address] [address] Neutrophils/100 WBC (Bld) 67.8 % Normal 37.0-80.0 [facility] ([place]) Comment on above: Performed By: #### G FR, A1C, ANEU, CBC, ADIFF, BMP #### [address] [address] .GFRon 09-16-2022 GFR Non- 48 ml/min/1.73sqm Normal [facility] ([place]) Comment on above: Result Comment: GFR Population [...] FR, A1C, ANEU, CBC, ADIFF, BMP #### [address] [address] GFR 59 ml/min/1.73sqm Normal [facility] ([place]) Comment on above: Result Comment: GFR Population [...] FR, A1C, ANEU, CBC, ADIFF, BMP #### [address] [address] .NEUABSon 09-16-2022 Neutrophil, Absolute 5.8 10 3/mcL Normal 2.9-6.2 [facility] ([place]) Comment on above: Performed By: #### G FR, A1C, ANEU, CBC, ADIFF, BMP #### [address] [address] A1Con 09-16-2022 HbA1c (Bld) [Mass fraction] 5.7 % Normal 4.3-6.4 [facility] ([place]) Comment on above: Performed By: #### G FR, A1C, ANEU, CBC, ADIFF, BMP #### [address] [address] BMPon 09-16-2022 BUN/Creatinine Ratio 27 ratio Normal 7-27 [facility] ([place] Comment on above: Performed By: #### G FR, A1C, ANEU, CBC, ADIFF, BMP #### [address] [address] Calcium [Mass/Vol] 9.8 mg/dL Normal 8.4-10.2 [facility] ([place]) Comment on above: Performed By: #### G FR, A1C, ANEU, CBC, ADIFF, BMP #### [address] [address] Chloride [Moles/Vol] 106 mmol/L Normal 98-107 [facility] ([place]) Comment on above: Performed By: #### G FR, A1C, ANEU, CBC, ADIFF, BMP #### [address] [address] CO2 [Moles/Vol] 29 mmol/L Normal 23-31 [facility] ([place]) Comment on above: Performed By: #### G FR, A1C, ANEU, CBC, ADIFF, BMP #### [address] [address] Creatinine [Mass/Vol] 1.08 mg/dL High 0.55-1.02 [facility] ([place]) Comment on above: Performed By: #### G FR, A1C, ANEU, CBC, ADIFF, BMP #### [address] [address] Electrolyte Balance 8.0 mEq/L Normal 4.0-15.0 [facility] ([place]) Comment on above: Performed By: #### G FR, A1C, ANEU, CBC, ADIFF, BMP #### [address] [address] Glucose [Mass/Vol] 125 mg/dL High 83-110 [facility] ([place] Comment on above: Performed By: #### G FR, A1C, ANEU, CBC, ADIFF, BMP #### [address] [address] Potassium [Moles/Vol] 4.5 mmol/L Normal 3.5-5.1 [facility] ([place]) Comment on above: Performed By: #### G FR, A1C, ANEU, CBC, ADIFF, BMP #### [address] [address] Sodium [Moles/Vol] 143 mmol/L Normal 136-145 [facility] ([place]) Comment on above: Performed By: #### G FR, A1C, ANEU, CBC, ADIFF, BMP #### [address] [address] Urea nitrogen [Mass/Vol] 29 mg/dL High 7-18 [facility] ([place]) Comment on above: Performed By: #### G FR, A1C, ANEU, CBC, ADIFF, BMP #### [address] [address] CBCon 09-16-2022 Erythrocyte distribution width (RBC) [Ratio] 14.6 % High 11.5-14.5 [facility] ([place]) Comment on above: Performed By: #### G FR, A1C, ANEU, CBC, ADIFF, BMP #### [address] [address] Hematocrit (Bld) [Volume fraction] 33.9 % Low 37.0-47.0 [facility] ([place]) Comment on above: Performed By: #### G FR, A1C, ANEU, CBC, ADIFF, BMP #### [address] [address] Hgb 11.2 G/dL Low 12.0-16.0 [facility] ([place]) Comment on above: Performed By: #### G FR, A1C, ANEU, CBC, ADIFF, BMP #### [address] [address] MCH (RBC) [Entitic mass] 27.0 pg Normal 27.0-31.2 [facility] ([place]) Comment on above: Performed By: #### G FR, A1C, ANEU, CBC, ADIFF, BMP #### [address] [address] MCHC 33.1 G/dL Normal 33.0-37.0 [facility] ([place]) Comment on above: Performed By: #### G FR, A1C, ANEU, CBC, ADIFF, BMP #### [address] [address] MCV (RBC) [Entitic vol] 81.6 fL Normal 80.0-94.0 A [facility] ([place]) Comment on above: Performed By: #### G FR, A1C, ANEU, CBC, ADIFF, BMP #### [place] [address] [place], [place] [address] Platelet 275 10 3/mcL Normal 130-400 [facility] ([place]) Comment on above: Performed By: #### G FR, A1C, ANEU, CBC, ADIFF, BMP #### [address] [address] Platelet mean volume (Bld) [Entitic vol] 8.2 fL Normal 7.4-10.4 [facility] ([place]) Comment on above: Performed By: #### G FR, A1C, ANEU, CBC, ADIFF, BMP #### [address] [address] RBC 4.15 10 6/mcL Low 4.20-5.40 [facility] ([place]) Comment on above: Performed By: #### G FR, A1C, ANEU, CBC, ADIFF, BMP #### [address] [address] WBC 8.5 10 3/mcL Normal 4.6-10.8 [facility] ([place]) Comment on above: Performed By: #### G FR, A1C, ANEU, CBC, ADIFF, BMP #### [address] [address] LABORATORYOrdered By: SYSTEM SYSTEM on 06-19-2022 Basophils [...] Invalid Interpretation Code 12.0 - 16.0 G/dL AH Workflow SS Lymphocytes (Bld) [#/Vol] 1.6 103/mcL [...] CNPNon 06-03-2022 CNPN Telephone (TONYA) CT D[facility]TON ([id number]) 1940 F Date Time Provider Department 06/03/22 PAULA ALANIZ During your visit today, we recorded the following information about you: Brenton Jennings RN 06/03/2022 11:29 AM Signed Received a request from [facility] for all of Ct's left breast cancer treatment medical records. Faxed the request to medical records on [facility], fax confirmation sheet received. Brenton Jennings RN [...] Status:Closed by BRENTON JENNINGS on 06/03/22 Normal [facility] LABORATORYOrdered By: SYSTEM SYSTEM on 04-14-2022 [...] ADM SS CNOVon 04-06-2022 CNOV Office Visit (DEANNS ) CT D[facility]TON ([id number]) 1940 F Date Time Provider Department 04/06/22 [...] needle core breast biopsies on 03/23/2022 at [facility]. Findings of fat necrosis, inflammation and dense fibrosis, vascular calcifications". The radiologist states that pathology findings are [...] once daily. (more content not included)... Normal [facility] LABORATORYOrdered By: SYSTEM SYSTEM on 03-09-2022 [...] 4.3 10^3/mcL Workflow SS Lymphocytes/100 WBC (Bld) 12.5 % [...] 12-04 Culture Urine No growth to date [facility] Microscopic examination of blood, culture Culture has been received in lab and is no growth to date. Routine cultures are held for 5 days. [facility] LABORATORYOrdered By: Lab KATIE Webber on 12-03-2021 Appearance (U) Clear (12/03/21 [...] 1.006-1.029 AM [facility] Subsection Urobilinogen Qn (U) [id number] {Sara'U}/dL Invalid Interpretation Code 0.2-1.0E.U. /dL AM [...] on above: Result Comment: A[address] [place], [place] [address] Perf Loc - POCT Tested at AM Invalid Interpretation Code AM [employer] Subsection Comment on above: Result Comment: Alesia villarreal [place] [address] [place], [place] [address] Perf Loc - POCT Tested at AM Invalid Interpretation Code AM [employer] Subsection Comment on above: Result Comment: [address] [place], [place] [address] MRI BREAST WO/W IVCON BILon 03-01-2018 MRI BREAST WO/W IVCON DUNCAN * * *Final Report* * * DATE OF EXAM: Mar 01 2018 11:54AM [facility] 0773 - MRI BREAST WO/W IVCON DUNCAN / PROCEDURE REASON: N64.4-Mastodynia * * * * Physician Interpretation * * * * #[id number] - MRI BREAST WO/W IVCON DUNCAN BREAST MRI OF BOTH BREASTS: 03/01/2018 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 Short interval follow up of the lumpectomy site recommended per the prior MRI dated 05/18/2017. RESULT: Comparison is made to exam dated: 05/18/2017 breast MRI - [facility]. Interpretation of this MRI was correlated with [...] Follow-up with ACR/NCCN guidelines. Td carlson/rafael:03/01/2018 14:15:08 Move Coordinator(s): RT Amanda(N)(MR), [facility] MRI BI-RADS: 2 Benign finding Multiple national specialty organizations have released breast cancer screening guidelines for women at average risk for developing breast cancer - guidelines that are based on both evidence and opinion, yet differ on when to start and how often to screen for breast cancer. With representation from Breast Imaging, Internal Medicine, Women's Health, Family Medicine, and Medical/Surgical Oncology, the [facility] has carefully reviewed the data and [...] their providers when to stop screening mammograms. French Binding Folder: Rafael Transcribe Date/Time: Mar 01 2018 11:37A Dictated by : TD SANDERS MD This examination was interpreted and the report reviewed and electronically signed by: TD SANDERS MD on Mar 01 2018 2:15PM EST [id number] [facility] NURSING PROGon 03-01-2018 Protein mass conc HNO ID: [id number] Author: Carla Love (Rn) Kristopher Service: Radiology [...] Summers RN March 01, 2018 10:49 AM [facility] Clinical Summary: HMSPatient IDon 01-17-2018 OOP Invalid Interpretation Code [facility] Work Phone: Office Visit: Follow-up by donnie servin, Rm: [email or web address] 01-17-2018 NEGATED: Highlighted rowMRI (magnetic resonance imaging) history of the lumbar spine on 10/20/2013 at [place] Invalid Interpretation Code [facility] Work Phone: NEGATED: Highlighted rowProtein mass conc Done Invalid Interpretation Code [facility] Work Phone: MRI BREAST WO/W IVCON BILon 05-18-2017 MRI BREAST WO/W IVCON DUNCAN * * *Final Report* * * DATE OF EXAM: May 18 2017 2:32PM [facility] 0773 - MRI BREAST WO/W IVCON DUNCAN / PROCEDURE REASON: Z13.89-Encounter for screening for other disorder * * * * Physician Interpretation * * * * #[id number] - MRI BREAST WO/W IVCON DUNCAN BREAST [...] by a staff physician. Cricket page,bb/rafael:05/18/2017 15:28:32 Move Coordinator: Cally SPEARS(Alex)(Jeanine), [facility] MRI BI-RADS: 3 Probably benign finding - short term interval follow-up recommended French Binding Folder: Rafael Transcribe Date/Time: May 18 2017 2:15P Dictated by : MALLIKA PAYNE MD This examination was interpreted and the report reviewed and electronically signed by: CRICKET AMBRIZ MD on May 18 2017 3:28PM EST [id number] [facility] NURSING PROGon 05-18-2017 Protein mass conc HNO ID: [id number] Author: Ema (Rn) DONA Bai Service: PICC [...] 2017 TIME: 1:27 PM PAGER/CONTACT #: [phone] [facility] Vital Signs Date Time Vital Sign Value Performing Clinician Facility 07-24-2024 03:24-0400 Diastolic blood pressure 69 mm[Hg] Dr. Warner Leos MD Work Phone: [facility] 07-24-2024 03:24-0400 Heart rate 52 /min Dr. Warner Leos MD Work Phone: [facility] 07-24-2024 03:24-0400 SaO2% (BldA) [Mass fraction] 100 % Dr. Warner Leos MD Work Phone: [facility] 07-24-2024 03:24-0400 Systolic blood pressure 164 mm[Hg] Dr. Warner Leos MD Work Phone: [facility] 07-24-2024 01:24-0400 Body height 167.[address] Warner Leos MD Work Phone: [facility] 07-24-2024 01:24-0400 Body mass index (BMI) [Ratio] 28 kg/m2 Dr. Warner Leos MD Work Phone: [facility] 07-24-2024 01:24-0400 Body temperature 98 [degF] Dr. Warner Leos MD Work Phone: [facility] 07-24-2024 01:24-0400 Body weight 78.[address] Warner Leos MD Work Phone: [facility] 07-24-2024 01:24-0400 Respiratory rate 16 /min Dr. Warner Leos MD Work Phone: [facility] 02-10-2024 15:30-0500 Body temperature 97.52 [degF] ELDA CARIN [employer] [facility] 02-10-2024 15:30-0500 Diastolic Blood Pressure Non-Invasive 72 mm[Hg] ELDA DEL ROSARIO [employer] 02-10-2024 15:30-0500 Heart rate 84 /min ELDA DEL ROSARIO [employer] 02-10-2024 15:30-0500 Reason For Taking VItal Signs ELDA DEL ROSARIO [employer] 02-10-2024 15:30-0500 Respiratory rate 16 /min ELDA DEL ROSARIO [employer] 02-10-2024 15:30-0500 Systolic Blood Pressure Non-Invasive 146 mm[Hg] ELDA DEL ROSARIO [employer] 02-10-2024 06:37-0500 Body temperature 97.34 [degF] ELDA DEL ROSARIO [employer] 02-10-2024 06:37-0500 Diastolic Blood Pressure Non-Invasive 82 mm[Hg] ELDA DEL ROSARIO [employer] 02-10-2024 06:37-0500 Heart rate 80 /min ELDA DEL ROSARIO [employer] 02-10-2024 06:37-0500 Reason For Taking VItal Signs ELDA DEL ROSARIO [employer] 02-10-2024 06:37-0500 Respiratory rate 14 /min ELDA DEL ROSARIO [employer] 02-10-2024 06:37-0500 Systolic Blood Pressure Non-Invasive 148 mm[Hg] ELDA DEL ROSARIO [employer] 02-10-2024 03:22-0500 Body temperature 97.52 [degF] ELDA DEL ROSARIO [employer] 02-10-2024 03:22-0500 Diastolic Blood Pressure Non-Invasive 81 mm[Hg] ELDA DEL ROSARIO [employer] 02-10-2024 03:22-0500 Heart rate 81 /min ELDA DEL ROSARIO [employer] 02-10-2024 03:22-0500 Reason For Taking VItal Signs ELDA DEL ROSARIO [employer] 02-10-2024 03:22-0500 Respiratory rate 14 /min ELDA DEL ROSARIO [employer] 02-10-2024 03:22-0500 Systolic Blood Pressure Non-Invasive 156 mm[Hg] ELDA DEL ROSARIO [employer] 02-09-2024 22:01-0500 Heart rate 74 /min ELDA DEL ROSARIO [employer] 02-09-2024 21:59-0500 Body height 152 cm ELDA DEL ROSARIO [employer] 02-09-2024 21:59-0500 Body weight 67 kg ELDA DEL ROSARIO [employer] [facility] 02-09-2024 21:59-0500 Body weight 29 kg/m2 ELDA DEL ROSARIO [employer] [facility] 02-09-2024 21:07-0500 Heart rate 78 /min ELDA DEL ROSARIO [employer] [facility] 02-09-2024 21:07-0500 Mean blood pressure 90 mm[Hg] ELDA BUCKNERFF [employer] [facility] 02-09-2024 20:38-0500 Mean blood pressure 85 mm[Hg] ELDA OBREGONRUFF [employer] [facility] 02-09-2024 19:39-0500 Heart rate 83 /min ELDA DEL ROSARIO [employer] 01-21-2024 10:04-0500 Body height 160 cm INES DENNIS [facility] 01-21-2024 10:04-0500 Body temperature 97.52 [degF] INES [facility] 01-21-2024 10:04-0500 Body weight 68.2 kg INES [facility] 01-21-2024 10:04-0500 Diastolic Blood Pressure Non-Invasive 81 mm[Hg] INES [facility] 01-21-2024 10:04-0500 Heart rate 85 /min INES [facility] 01-21-2024 10:04-0500 Respiratory rate 18 /min INES [facility] 01-21-2024 10:04-0500 Systolic Blood Pressure Non-Invasive 164 mm[Hg] INES [facility] 12-09-2023 08:47-0400 Blood Pressure Location INES DENN[facility] 12-09-2023 08:47-0400 Blood Pressure Method INES [facility] 12-09-2023 08:47-0400 Body temperature 98.24 [degF] INES [facility] 12-09-2023 08:47-0400 Diastolic Blood Pressure Non-Invasive 91 mm[Hg] INES [facility] 12-09-2023 08:47-0400 Heart rate 90 /min INES [facility] 12-09-2023 08:47-0400 Respiratory rate 18 /min INES [facility] 12-09-2023 08:47-0400 Systolic Blood Pressure Non-Invasive 161 mm[Hg] INES [facility] 11-29-2023 12:26-0400 Diastolic Blood Pressure Non-Invasive 76 mm[Hg] SONNY FAVIO [facility] 11-29-2023 12:26-0400 Heart rate 76 /min SONNY FAVIO [facility] 11-29-2023 12:26-0400 Respiratory rate 18 /min SONNYSUSHMA STAHL DO [facility] 11-29-2023 12:26-0400 Systolic Blood Pressure Non-Invasive 164 mm[Hg] SONNYSUSHMA STAHL DO [facility] 11-29-2023 08:58-0400 Blood Pressure Cuff Size SONNY FAVIO [facility] 11-29-2023 08:58-0400 Blood Pressure Location SONNY STAHL [facility] 11-29-2023 08:58-0400 Blood Pressure Method SONNY STAHL [facility] 11-29-2023 08:58-0400 Body height 155 cm SONNY FAVIO [facility] 11-29-2023 08:58-0400 Body temperature 97.34 [degF] SONNY FAVIO [facility] 11-29-2023 08:58-0400 Diastolic Blood Pressure Non-Invasive 83 mm[Hg] SONNY STAHL [facility] 11-29-2023 08:58-0400 Heart rate 84 /min SONNY STAHL [facility] 11-29-2023 08:58-0400 Respiratory rate 18 /min SONNY STAHL [facility] 11-29-2023 08:58-0400 Systolic Blood Pressure Non-Invasive 172 mm[Hg] SONNY STAHL [facility] 06-19-2022 12:01-04[address] Cuff Size DR ANISA GOMEZ MD [facility] 06-19-2022 12:01-[address] ANISA GOMEZ MD [facility] 06-19-2022 12:01-[address] ANISA GOMEZ MD [facility] 06-19-2022 12:01-0400 Body height [address] ANISA GOMEZ MD [facility] 06-19-2022 12:01-0400 Body temperature 97.7 [degF] DR ANISA GOMEZ MD [facility] 06-19-2022 12:01-0400 Body weight 76.[address] ANISA GOMEZ MD [facility] 06-19-2022 12:01-0400 Body weight 31.88 kg/m2 DR ANISA GOMEZ MD [facility] 06-19-2022 12:01-0400 Diastolic Blood Pressure Non-Invasive [address] ANISA GOMEZ MD [facility] 06-19-2022 12:01-0400 Heart rate 86 /min DR ANISA GOMEZ MD [facility] 06-19-2022 12:01-0400 Systolic Blood Pressure Non-Invasive [address] ANISA GOMEZ MD [facility] 04-06-2022 09:47-0500 Body height 157.5 cm Paula Alaniz MD Work Phone: [facility] 04-06-2022 09:47-0500 Body temperature 97.81 [degF] Paula Alaniz MD Work Phone: [facility] 04-06-2022 09:47-0500 Body weight 73.94 kg Paula Alaniz MD Work Phone: [facility] 04-06-2022 09:47-0500 Diastolic blood pressure 70 mm[Hg] Paula Alaniz MD Work Phone: [facility] 04-06-2022 09:47-0500 Heart rate 109 /min Paula Alaniz MD Work Phone: [facility] 04-06-2022 09:47-0500 SaO2% (BldA) [Mass fraction] 99 % Paula Alaniz MD Work Phone: [facility] 04-06-2022 09:47-0500 Systolic blood pressure 148 mm[Hg] Paula Alaniz MD Work Phone: [facility] 12-25-2021 16:18-0500 Diastolic Blood Pressure Non-Invasive 69 1 INES [facility] 12-25-2021 16:18-0500 Systolic Blood Pressure Non-Invasive 189 1 INES [facility] 12-25-2021 15:56-0500 Body height 157.5 cm INES [facility] 11-17-2022 15:56-0500 Body temperature 96.44 [degF] INES [facility] 12-25-2021 15:56-0500 Body weight 65.9 kg INES [facility] 12-25-2021 15:56-0500 Diastolic Blood Pressure Non-Invasive 109 1 INES [facility] 12-25-2021 15:56-0500 Heart rate 90 /min INES [facility] 12-25-2021 15:56-0500 Respiratory rate 20 /min INES [facility] 12-25-2021 15:56-0500 Systolic Blood Pressure Non-Invasive 202 1 INES [facility] 12-06-2021 12:58-0400 Diastolic blood pressure 77 mm[Hg] DR KEVIN VIRGEN MD [facility] 12-06-2021 12:58-0400 Mean blood pressure 111 mm[Hg] DR KEVIN VIRGEN MD [facility] 12-06-2021 12:58-0400 Systolic blood pressure 180 mm[Hg] DR KEVIN VIRGEN MD [facility] 12-06-2021 12:55-0400 Diastolic blood pressure 77 mm[Hg] DR KEVIN VIRGEN MD [facility] 12-06-2021 12:55-0400 Heart rate 60 /min DR KEVIN VIRGEN MD [facility] 12-06-2021 12:55-0400 Mean blood pressure 111 mm[Hg] DR KEVIN VIRGEN MD [address] [place] [address] 12-06-2021 12:55-0400 Reason For Taking VItal Signs DR KEVIN VIRGEN MD [address] [place] [address] 12-06-2021 12:55-0400 Respiratory rate 18 /min DR KEVIN VIRGEN MD [address] [place] [address] 12-06-2021 12:55-0400 Systolic blood pressure 180 mm[Hg] DR KEVIN VIRGEN MD [address] [place] [address] 12-06-2021 08:46-0400 Heart rate 78 /min DR KEVIN VIRGEN MD [address] [place] [address] 12-06-2021 08:30-0400 Body temperature 98.06 [degF] DR KEVIN VIRGEN MD [address] [place] [address] 12-06-2021 08:30-0400 Diastolic blood pressure 82 mm[Hg] DR KEVIN VIRGEN MD [address] [place] [address] 12-06-2021 08:30-0400 Heart rate 77 /min DR KEVIN VIRGEN MD [address] [place] [address] 12-06-2021 08:30-0400 Mean blood pressure 106 mm[Hg] DR KEVIN VIRGEN MD [address] [place] [address] 12-06-2021 08:30-0400 Reason For Taking VItal Signs DR KEVIN VIRGEN MD [address] [place] [address] 12-06-2021 08:30-0400 Respiratory rate 17 /min DR KEVIN VIRGEN MD [address] [place] [address] 12-06-2021 08:30-0400 Systolic blood pressure 155 mm[Hg] DR KEVIN VIRGEN MD [address] [place] [address] 12-06-2021 03:45-0400 Body temperature 97.88 [degF] DR KEVIN VIRGEN MD [address] [place] [address] 12-06-2021 03:45-0400 Reason For Taking VItal Signs DR KEVIN VIRGEN MD [address] [place] [address] 12-06-2021 03:45-0400 Respiratory rate 18 /min DR KEVIN VIRGEN MD [address] [place] [address] 12-05-2021 23:53-0400 Body temperature 98.06 [degF] DR KEVIN VIRGEN MD [address] [place] [address] 12-04-2021 15:33-0400 Heart rate 56 /min DR KEVIN VIRGEN MD [address] [place] [address] 12-04-2021 02:47-0400 Heart rate 55 /min DR KEVIN VIRGEN MD [address] [place] [address] 12-03-2021 23:44-0400 Heart rate 60 /min DR KEVIN VIRGEN MD [address] [place] [address] 12-03-2021 21:46-0400 Body height [address] KEVIN VIRGEN MD [address] [place] [address] 12-03-2021 21:46-0400 Body weight 83.[address] KEVIN VIRGEN MD [address] [place] [address] 12-03-2021 21:46-0400 Body weight 32.73 kg/m2 DR KEVIN VIRGEN MD [address] [place] [address] 12-03-2021 21:30-0400 Heart rate 86 /min DR KEVIN VIRGEN MD [address] [place] [address] 12-03-2021 14:26-0400 Body temperature 98.06 [degF] DR KEVIN VIRGEN MD [address] [place] [address] 12-03-2021 14:26-0400 Body weight 83.[address] KEVIN VIRGEN MD [facility] NEGATED: Highlighted [id number] 10:24-0500 BMI (Body Mass Index) 37.26 kg/m2 Rigo Sitko AT [facility] Work Phone: NEGATED: Highlighted [id number] 10:24-0500 BP Diastolic 72 mm[Hg] Rigo Sitko AT [facility] Work Phone: NEGATED: Highlighted [id number] 10:24-0500 BP Diastolic 82 mm[Hg] Rigo Sitko AT [facility] Work Phone: NEGATED: Highlighted [id number] 10:24-0500 BP Systolic 154 mm[Hg] Rigo Sitko AT [facility] Work Phone: NEGATED: Highlighted [id number] 10:24-0500 BP Systolic 149 mm[Hg] Rigo Sitko AT [facility] Work Phone: NEGATED: Highlighted [id number] 10:24-0500 Height 157.48 cm Rigo Sitko AT [facility] Work Phone: NEGATED: Highlighted [id number] 10:24-0500 Height 157 cm Rigo Sitko AT [facility] Work Phone: NEGATED: Highlighted [id number] 10:24-0500 Pulse (Heart Rate) 60 /min Rigo Sitko AT [facility] Work Phone: NEGATED: Highlighted [id number] 10:24-0500 Weight 92.08 kg Rigo Sitko AT [facility] Work Phone: NEGATED: Highlighted [id number] 10:24-0500 Weight 92 kg Rigo Sitko AT [facility] Work Phone: Encounters Encounter Date Encounter Type Care Provider Facility Start: 07-24-2024 End: 07-24-2024 Emergency department patient visit Dr. Warner Leos MD Work Phone: -Emergency Department Work Phone: Start: 06-26-2024 End: 06-26-[address] Warner Leos MD Work Phone: [facility] Work Phone: Start: 06-26-2024 End: 06-26-2024 Departed Referred Jairon LockhartMonico Ruvalcaba Start: 06-26-2024 End: 06-26-2024 ambulatory Warner Leos Jr. Facility:[facility] Start: 05-29-2024 End: 05-29-[address] Warner Leos MD Work Phone: [facility] Work Phone: Start: 05-29-2024 End: 05-29-2024 Departed Referred Jairon LockhartMonico Ruvalcaba Start: 05-29-2024 Registered Referred Jairon LockhartMonico Ruvalcaba Start: 05-29-2024 End: 05-29-2024 ambulatory Warner Leos Jr. Facility:[facility] Start: 05-24-2024 End: 05-24-[address] Warner Leos MD Work Phone: [facility] Work Phone: Start: 05-24-2024 End: 05-24-2024 Departed Referred Jairon LockhartMonico Ruvalcaba Start: 05-24-2024 Registered Referred Jairon LockhartMonico Ruvalcaba Start: 05-23-2024 End: 05-24-[address] Warner Leos MD Work Phone: [facility] Work Phone: Start: 05-23-2024 End: 05-23-2024 Patient encounter procedure Jane Lary [facility] Work Phone: Start: 05-15-2024 End: 05-15-[address] Warner Leos MD Work Phone: [facility] Work Phone: Start: 05-15-2024 End: 05-15-2024 Departed Referred Jairon Medel MD -[facility] [place] Start: 05-15-2024 [facility] Start: 05-15-2024 End: 05-15-2024 ambulatory Warner Leos Jr. Facility:[facility] Start: 05-12-2024 End: 05-12-[address] Warner Leos MD Work Phone: [facility] Work Phone: Start: 05-12-2024 End: 05-12-2024 Patient encounter procedure Jane Barth [facility] Work Phone: Start: 05-01-2024 End: 05-01-[address] Warner Leos MD Work Phone: [facility] Work Phone: Start: 05-01-2024 End: 05-01-2024 Departed Referred Jairon Medel MD -[facility] [place] Start: 05-01-2024 End: 05-01-2024 ambulatory Warner Leos Jr. Facility:[facility] Start: 04-26-2024 End: 04-26-2024 ambulatory Warner Leos Jr. [place] Start: 04-26-2024 End: 04-26-2024 Patient encounter procedure Jane Barth [facility] Work Phone: Start: 04-11-2024 End: 04-11-2024 ambulatory Warner Leos Jr. [place] Start: 04-11-2024 End: 04-11-[address] Jairon Medel MD -[facility] Work Phone: Start: 04-03-2024 End: 04-03-2024 [facility] Start: 04-03-2024 End: 04-03-2024 ambulatory Warner Leos Jr. [facility] Start: 04-03-2024 [facility] Start: 03-27-2024 ambulatory Warner Leos Jr. [facility] ity:[facility] Start: 03-27-2024 [facility] [place] Start: 02-29-2024 End: 02-29-2024 ambulatory Jairon Medel [facility] Start: 02-29-2024 End: 02-29-[address] Jairon Medel MD -[facility] Work Phone: Start: 02-28-2024 End: 02-28-2024 [facility] Start: 02-28-2024 End: 02-28-2024 ambulatory Warner Leos Jr. Facility:[facility] Start: 02-24-2024 End: 02-24-2024 ambulatory Janedieter Sanchezmartha Facility[place] Start: 02-24-2024 End: 02-24-2024 Patient encounter procedure Jane Lary [employer] -[facility] Work Phone: Start: 02-11-2024 End: 02-23-[address] LARRY THOMAS DO Facility[facility] Start: 02-09-2024 End: 02-10-2024 Emergency department patient visit ELDA ARELLANO Facility:[facility] Start: 02-09-2024 End: 02-10-2024 Observation ELDA ARELLANO [facility] Start: 01-21-2024 End: 01-21-2024 Emergency department patient visit INES DENNIS MD [facility] Start: 01-05-2024 End: 01-05-[address] LARRY THOMAS DO Facility[facility] [place] Start: 01-05-2024 End: 01-05-[address] LARRY THOMAS DO [facility] Start: 12-29-2023 End: 12-29-[address] LARRY THOMAS DO [facility] Start: 12-29-2023 End: 12-29-[address] LARRY THOMAS DO [facility] Start: 12-21-2023 End: 12-21-[address] LARRY THOMAS DO [facility] Start: 12-21-2023 End: 12-21-[address] LARRY THOMAS DO [facility] Start: 12-18-2023 End: 01-26-[address] LARRY THOMAS DO Facility:[facility] Start: 12-15-2023 End: 12-15-[address] LARRY TOHMAS DO [facility] Start: 12-15-2023 End: 12-15-[address] LARRY THOMAS DO [facility] Start: 12-15-2023 End: 12-19-[address] LARRY THOMAS DO [facility] Start: 12-15-2023 End: 12-19-[address] LARRY THOMAS DO [facility] Start: 12-09-2023 End: 12-09-2023 Emergency department patient visit INES DENNIS MD [facility] Start: 11-29-2023 End: 11-29-2023 Emergency department patient visit SONNY STAHL DO [facility] Start: 07-08-2023 End: 07-09-[address] LARRY THOMAS DO Facility:[facility] Start: 07-08-2023 End: 07-08-[address] LARRY THOMAS DO [facility] Start: 04-14-2023 End: 04-15-2023 ambulatory MAHAD LORENZO MD Facility:[facility] Start: 04-14-2023 End: 04-14-2023 Patient encounter procedure MAHAD LORENZO MD [facility] Start: 04-09-2023 End: 05-06-[address] LARRY THOMAS DO Facility:[facility] Start: 04-09-2023 End: 02-14-[address] LARRY THOMAS DO Facility:[facility] Start: 04-07-2023 End: 04-08-[address] LARRY THOMAS DO Facility:[facility] Start: 04-07-2023 End: 04-07-2023 Patient encounter procedure MAHAD LORENZO MD [facility] Start: 03-10-2023 End: 03-11-[address] LARRY THOMAS DO Facility:[facility] Start: 12-14-2022 End: 12-15-[address] LARRY THOMAS DO Facility:[facility] Start: 2022 End: 11-09-[address] LARRY THOMAS DO Facility:[facility] Start: 2022 End: 11-09-2022 Coordination of care plan DR LARRY THOMAS DO [facility] Start: 09-16-2022 End: 09-17-[address] LARRY THOMAS DO Facility:[facility] Start: 07-16-2022 End: 07-17-[address] ANISA GOMEZ MD Facility:[facility] Start: 06-19-2022 End: 06-19-[address] ANISA GOMEZ MD [facility] Start: 06-03-2022 Telephone encounter Paula Yepez MD Work Phone: General Surgery Comment on above: Request for medical records Start: 04-15-2022 End: 04-15-[address] [facility]ARR[facility] Start: 04-14-2022 End: 04-14-[address] LARRY THOMAS DO [facility] Start: 04-06-2022 End: 04-07-2022 ambulatory PAULA ALANIZ Facility:[facility] Start: 04-06-2022 End: 04-06-2022 Patient encounter procedure Paula Alaniz MD Work Phone: General Surgery Comment on above: Abnormal ultrasound of breast; History of left breast cancer Start: 03-23-2022 End: 03-23-2022 Patient encounter procedure ALANNA WRIGHT DO [facility] Start: 03-09-2022 End: 03-09-[address] LARRY THOMAS DO [facility] Start: 02-23-2022 End: 02-23-2022 Patient encounter procedure ALANNA WRIGHT DO [facility] Start: 01-22-2022 End: 01-22-2022 Patient encounter procedure ALANNA WRIGHT [facility] Start: 12-25-2021 End: 12-25-2021 Emergency department patient visit INES DENNIS [facility] Start: 12-03-2021 End: 12-06-[address] KEVIN VIRGEN MD [facility] Start: 05-05-2021 End: 05-05-2021 Patient encounter procedure ALANNA WRIGHT [facility] Start: 12-11-2020 End: 12-11-2020 Patient encounter procedure SEAN POOLE [facility] Start: 03-01-2018 Patient encounter procedure [facility] Start: 01-17-2018 End: 01-17-2018 Patient encounter procedure Carla Dye MD Work Phone: [facility] Work Phone: Start: 05-18-2017 Patient encounter procedure [facility] Procedures Date Procedure Procedure Detail Performing Clinician Start: 07-24-2024 Plain x-ray of pelvi s and lower extremity Dr. Warner Leos MD Work Phone: Start: 04-03-2024 Measurement of renal function Dr. [...] ANISA GOMEZ MD Ligation of fallopian tube Steffany POOLE MD Lumpectomy of left breast DR KEVIN VIRGEN MD Plan of Treatment Date Care Activity Detail Author Start: 07-24-2024 [facility] Start: 02-08-2022 ADVANCE DIRECTIVE DISCUSSION ADVANCE DIRECTIVE DISCUSSION [facility] Start: 02-08-2022 DEPRESSION ASSESSMENT DEPRESSION ASSESSMENT [facility] Start: 08-10-2021 COVID-19 VACCINE (5 - Booster for Moderna series) COVID-19 VACCINE (5 - Booster for Moderna series) [facility] Start: 01-17-2018 End: 01-17-2018 Appointment Appointment [facility] Work Phone: Start: 09-23-2003 BONE DENSITY BONE DENSITY [facility] Start: 09-23-2003 PNEUMOCOCCAL: 65+ (1 - PCV) PNEUMOCOCCAL: 65+ (1 - PCV) [facility] Start: 1988 SHINGRIX VACCINE (1 of 2) SHINGRIX VACCINE (1 of 2) [facility] Start: 09-23-1983 DIABETES SCREEN DIABETES SCREEN [facility] Start: 1957 Urine microalbumin profile DTAP,TDAP,TD (1 - Tdap) [facility] Patient Education ED Pelvic Fracture [facility] Work Phone: Patient referral [facility] Work Phone: Immunizations Immunization Date Immunization Notes Care Provider Fa [facility] 12-27-2022 SARS-CoV-2 (COVID-19 ) [id number] MAHAD LORENZO MD [facility] 11-05-2022 zoster vaccine recombinant MAHAD LORENZO MD [facility] 10-03-2022 influenza virus vacc ine, unspecified formulation MAHAD LORENZO MD [facility] 09-15-2022 pneumococcal 20-lisa nt conjugate vaccine MAHAD LORENZO MD [facility] 01-10-2022 influenza virus vacc ine, unspecified formulation MAHAD LORENZO MD [facility] 06-15-2021 SARS-CoV-2 (COVID-19 ) mRNA-[id number] vaccine MAHAD LORENZO MD [facility] 12-12-2020 SARS-CoV-2 (COVID-19 ) mRNA-1273 vaccine MAHAD LORENZO MD [facility] Comment on above: Result Comment: 2022: [id number] 10-22-2020 influenza virus vacc ine, unspecified formulation MAHAD LORENZO MD [facility] 03-28-2020 COVID-19, mRNA, LNP- S, PF, 100 mcg/ 0.5 mL dose; Translations: [Moderna COVID-19 Vaccine] SEAN POOLE [facility] 02-29-2020 COVID-19, mRNA, LNP- S, PF, 100 mcg/ 0.5 mL dose; Translations: [Moderna COVID-19 Vaccine] SEAN POOLE [facility] 10-12-2019 influenza virus vacc ine, unspecified formulation SEAN POOLE [facility] Comment on above: Result Comment: michael peck administered 10-11-2019 influenza virus vacc ine, unspecified formulation MAHAD LORENZO MD [facility] 10-11-2019 pneumococcal conjuga te vaccine, 13 valent SEAN POOLE [facility] 10-07-2018 influenza virus vacc ine, unspecified formulation SEAN POOLE [facility] 12-21-2017 influenza virus vacc ine, unspecified formulation SEAN POOLE [facility] 10-27-2016 influenza virus vacc ine, unspecified formulation SEAN POOLE [facility] 10-29-2015 influenza virus vacc ine, unspecified formulation SEAN POOLE [facility] 10-30-2014 influenza virus vacc ine, unspecified formulation SEAN POOLE [facility] 10-31-2013 influenza virus vacc ine, unspecified formulation SEAN POOLE MD [facility] 11-01-2012 influenza virus vacc ine, unspecified formulation SEAN POOLE MD [facility] 01-09-2005 pneumococcal polysaccharide vaccine, 23 valent SEAN POOLE MD [facility] No information available. Rigo Best AT [facility] Work Phone: Payers Date Payer Category Payer Self-pay [id number] 2017 Private Health Insurance [id number] 2017 Unknown [id number] 2003 Medicare [id number] [id number] 2003 Medicare [id number] 1938 Unknown [id number] 2.16.840.1.756286.3.579.2.62 1938 Unknown [id number] 2.16.840.1.933550.3.579.2.62 1938 Unknown [id number] 2.16.840.1.667328.3.579.2.627 1938 Unknown [id number] 2.16.840.1.350577.3.579.2.627 1938 Unknown [id number] 2.16.840.1.394803.3.579.2. 1938 Unknown [id number] 2.16.840.1.418616.3.579.2. 1938 Unknown [id number] 2.16.840.1.594889.3.579.2. 1938 Unknown [id number] 2.16840.1.360074.3.579.2. 1938 Unknown [id number] 2.840.1.483924.3.579.2. 1938 Unknown [id number] 2.840.1.648444.3.579.2. 1938 Unknown [id number] 2.840.1.475951.3.579.2. 1938 Unknown [id number] 2.840.1.425969.3.579.2. 1938 Unknown [id number] 2.840.1.959978.3.579.2. 1938 Unknown [id number] 2.840.1.965375.3.579.2. 1938 Unknown [id number] 2.840.1.954497.3.579.2. 1938 Unknown [id number] .840.1.696405.3.579.2. 1938 Unknown [id number] 2.840.1.674769.3.579.2.627 Medicare MEDICARE PART A B [id number] 1 [id number] Unknown [id number] 2.16840.1.217292.3.579.2.462 Unknown [id number] 2.16.840.1.943428.3.579.2.462 Unknown [id number] 2.16.840.1.181319.3.579.2.462 Unknown [id number] 2.16.840.1.243946.3.579.2.462 Unknown [id number] 2.16.840.1.950070.3.579.2.462 Unknown [id number] 2.16.840.1.841177.3.579.2.462 Unknown [id number] 2.16.840.1.638566.3.579.2.462 Unknown [id number] 2.16.840.1.134267.3.579.2.462 Unknown [id number] 2.16.840.1.460057.3.579.2.462 Unknown [id number] 2.16.840.1.462304.3.579.2.462 Unknown [id number] 2.16.840.1.879380.3.579.2.462 Unknown [id number] 2.16.840.1.297713.3.579.2.462 Unknown [id number] 2.16.840.1.219018.3.579.2.462 Unknown [id number] 2.16.840.1.647259.3.579.2.462 Unknown [id number] 2.16.840.1.521019.3.579.2.462 Unknown [id number] 2.16.840.1.970754.3.579.2.462 Social History Date Type Detail Facility Start: 01-17-2018 End: 01-17-2018 Assertion Unknown if ever smoked [facility] Work Phone: Start: 04-07-2019 End: 07-24-2024 Never smoked tobacco (finding) [facility] Assigned At [facility] Start: 04-06-2022 Tobacco use and exposure Smokeless tobacco non-user [facility] Start: 04-06-2022 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 02-10-2024 Functional Status Identified as high risk, Door open, Non-Slip footwear, Room check performed [facility] 02-10-[address] [facility] 02-10-[address] [facility] 02-10-[address] [facility] 02-09-[address] [facility] 01-21-2024 Functional Status Minimum assistance [facility] 01-21-2024 Functional Status Independent [facility] 12-09-2023 Functional Status Minimum assistance [facility] 12-09-2023 Functional Status ID band on, Call device within reach, Bed in low position, Wheels locked, Upper/Half-Length side-rails up, Visitor at bedside, Safety level maintained [facility] 11-29-2023 Functional Status Up ad nazario [facility] 11-29-2023 Functional Status Standard Safet y ID band on, Call device within reach, Bed in low position, Wheels locked, Upper/Half-Length side-rails up, Visitor at bedside [facility] 06-19-2022 Functional Status Sensory Deficits None [facility] 12-25-2021 Functional Status Independent [facility] 12-06-2021 Functional Status None [facility] 12-06-2021 Functional Status Room check performed [facility] 12-06-2021 Functional Status [facility] 12-06-2021 Functional Status [facility] 12-05-2021 Functional Status [facility] 12-05-2021 Functional Status [facility] 12-05-2021 Functional Status Mod A 1 [facility] 12-04-2021 Functional Status Single level home [facility] 12-04-2021 Functional Status [facility] 12-04-2021 Functional Status [facility] 12-04-2021 Functional Status [facility] 12-04-2021 Functional Status [facility] 12-04-2021 Functional Status SCD On/Re-appl ied bilateral knee high [facility] 12-03-2021 Functional Status Ambulation in Room [facility] Mental Status Date Assessment Result Facility 02-10-2024 Mental Status Not oriented to time, Forgetful, Follows simple commands [facility] 02-09-[address] [facility] 02-09-[address] [facility] 01-21-2024 Mental Status Orientation Not oriented to situation, Forgetful [facility] 01-21-[address] [facility] 12-09-2023 Mental Status Orientation Oriented x 4 [facility] 12-09-[address] [facility] 11-29-2023 Mental Status Orientation Oriented x 4 [facility] 11-29-[address] [facility] 12-25-2021 Mental Status Orientation Oriented x 4 [facility] 12-06-2021 Mental Status [facility] x [facility] Status [facility] 12-06-2021 Mental Status [facility] Clinical Notes 12-03-2021 to 07-24-2024 Note Date & Type Note Facility 07-24-2024 Discharge summary [facility] 07-24-2024 Radiology Diagnostic study note [facility] Imaging Services [address] [place] [place], [place] [id number] HIP, UNI W/ Pelvis 2-3 Views MR#: [id number] Acct: [id number] Name: CT DALTON Rep #: [id number] : 1940 F 83 From: Jane Vance MD PCP: Dr. Jairon Medel MD Status: R ER Study:HIP, UNI W/ Pelvis 2-3 Views Date of Ex am: 07/24/24 Exam# [id number] Ordering Dr: Sharon Harry MD PROCEDURE: HIP, UNI W/ PELVIS 2-3 VIEWS 07/24/2024 REASON FOR EXAM: FALL AND RIGHT HIP PAIN TECHNIQUE: HIP, UNI W/ PELVIS 2-3 VIEWS COMPARISON: None FINDINGS: Bones: Acute right superior ramus fracture is seen. Joints: Moderate right hip degenerative hanges are seen. Soft tissues: No obvious abnormalities. RAD/HIP, UNI W/ Pelvis 2-3 Views IMPRESSION: Acute right superior ramus fracture. Right hip moderate degenerative changes. [facility]: Dr. Jairon Medel MD; Dr. Jean Claude Harry MD ~ French Binding Folder: Signed [facility] 02-10-2024 Hospital Discharge instructions Patient Education 02/10/2024 15:03:52 Dementia, Dhip-my-Zqvy Dementia Dementia is a condition that affects [...] Follow these instructions at home: Medicines Take arev-srv-yvgubav and prescription medicines only as told by [...] 04/11/2019 Document Reviewed: 04/11/2019 Elsevier Patient Education 2020 [employer] Follow Up Care 02/09/2024 19:37:05 With:LARRY THOMAS DO Address: [address] [place] [phone] When:02/16/2024 09:30:00 Comments:This is your post-hospital appointment. Follow-up as scheduled. [facility] 02-10-2024 Note Discharge Instructions Thank you for allowing [facility] to assist you with your healthcare needs. The following is important discharge information regarding your hospital visit. Your Care Team SUSY ALBRIGHT APRN-SHAMEKA Your Diagnosis (HFpEF) heart failure with preserved ejection fraction Dementia Weakness What to do next Scheduled Follow-Up Appointments Appointment Type When With Where Contact Information StatusPC OV 02/16/2024 09:30 AM EST LARRY THOMAS DO [address] [phone] Confirmed Follow Up Appointments Follow Up with LARRY THOMAS DO When:02/16/2024 09:30 AM EST Where:[address] [place] [phone] Additional Information: This is your post-hospital appointment. [...] providers or retail pharmacies. Medication Leaflets memantine ([facility] MAN teen) Namenda, Namenda XR What is [...] may report side effects to FDA at 6-815-QWL-5369. What other drugs will affect memantine? Tell [...] may interact with memantine, including prescription and weus-tns-drhjzkv medicines, vitamins, and herbal products. Not all [...] to ensure that the information provided by [facility]. ('[employer]') is accurate, up-to-date, and complete, but no guarantee is made to that effect. Drug information contained herein may be time sensitive. [employer] information has been compiled for use by healthcare practitioners and consumers in the [place] and therefore [employer] does not warrant that uses outside of the [place] are appropriate, unless specifically indicated otherwise. [employer] drug information does not endorse drugs, diagnose patients or recommend therapy. [employer] drug information is an informational resource designed [...] effective or appropriate for any given patient. [employer] does not assume any responsibility for any aspect of healthcare administered with the aid of information [employer] provides. The information contained herein is not intended to cover all possible uses, directions, precautions, warnings, drug interactions, allergic reactions, or adverse effects. If you have questions about the drugs you are taking, check with your doctor, nurse or pharmacist. Copyright 8772-9222 [facility]. Version: 5.01. Revision Date: 09/21/2022. Education Materials [...] Follow these instructions at home: Medicines Take izll-upy-ucjlirf and prescription medicines only as told by [...] 01/07/2009 Document Revised: 04/11/2019 Document Reviewed: 04/11/2019 [employer] Patient Education 2020 [employer]. Additional Information VACCINATE! IT SAVES LIVES! Members of the community who have not yet received the COVID-19 vaccine and would like to receive it can visit one of [facility] vaccine clinics. There are many vaccine clinic locations within the [facility]. For locations and available times, please visit https://gettheshot.coronavirus.[place].gov/. It is important to note that some COVID mobile vaccine clinics are held outdoors and may be canceled in rainy or stormy conditions. To learn more about pediatric vaccinations (ages 5-11), we invite you to visit the [facility] webpage. https://www.[facility].org/pag es/2905-Goidl-Wgwaupfebfk-Frequent xn-Vqmuv-Kisuqyymb.html To learn more about the COVID-19 vaccine, we invite you to visit the CDC website for a list of frequently asked questions.https://www.cdc.gov/armando navirus/2019-ncov/vaccines/faq.htm monico [facility] Patient Portal Access Instructions: Stay connected with your healthcare team and access your personal medical information anytime with the [facility] Patient Portal. Please follow the directions below to create your [facility] account: 1.Access the email account you provided upon registration to the hospital/physician office.2.Look for an invitation email from [facility].3.Open the email and access the invitation link: Accept Invitation to [facility].4.Fill in the required alejandro to create your account. To access your account, visit [email or web address]. Click the blue button labeled "Access Patient Portal" and then log in with the username [...] you will allow to register on the [facility] [employer] Patient Portal for access to your information. You can also access the [facility] [employer] Patient Portal on the [facility] angelica. Simply click on "Patient Portal" and then log into your account. If you would like to receive a full copy of your medical records, please contact the [facility] Medical Records Department by calling [phone], Wednesday through Wednesday between 8 a.m. and [...] Call your local pharmacy or go to http://bit.ly/6I9Az6a to find one close to you.3.Make use of household items: Use cat litter or old coffee grounds to dispose medications if other options are not available. Mix your drugs with these household products, seal them in an airtight container and throw it into the garbage. Call [facility]: [phone] to be sure your drugs can be [...] CHART COPY. Signatures Patient Education Materials Dementia, Dwjh-gw-Vrau Medication Leaflets memantine My discharge plan and instructions have been reviewed and explained to me and I,CT DALTON understand my current condition and have read and understand these discharge instructions. I have received a written copy of the plan/instructions. If I have questions, I am aware that I should contact my doctor. 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 Weakness 2. (HFpEF) heart failure [...] Future Appointments Appointment Date:02/16/2024 09:30:00 AM Scheduled Provider:LARYR THOMAS DO Location:[facility] Appointment Type:[facility] 01-02-2025 Note Date of Service 02/10/24 Chief Complaint patient called EMS with complaint of BLE swelling. patient poor historian but continues to report BLE swelling on arrival. also states that she feels weak. History of Present Illness 83 year old female with past medical history of dementia, urinary frequency, dizziness, breast cancer, CKD Stage 3, anemia, HLD, HFpEF. Patient [facility] ED on 02/09/24 due to family concerns [...] by SUSY ALBRIGHT on 02/10/2024 10:21 AM [facility]01[facility] Note* Exam Date Time Procedure Performing Provider Status 02/09/24 8:10 PM XR Chest 1 View EILEEN CHRISTINE DO; Arnaldo h (Verified) [id number] ORIGINAL EXAMINATION: ONE XRAY VIEW OF THE [...] 02/09/2024 9:08:10 PM Ordering Provider: TRIXIE BARONE [facility]01-01-[facility]25 Note* Exam Date Time Procedure Performing Provider Status 02/09/24 7:59 PM EKG [ED AOH] - CV MD TRIXIE BARONE MD; Auth (Verified) ECG Final Report Sinus rhythm LVH by voltage Inferior infarct, old Anterior Q waves, possibly due to LVH Electronic Signature: MD TRIXIE BARONE MD 02/09/2024 20:03:00 [facility]12[facility] Hospital Discharge instructions Patient Education 01/21/2024 11:14:13 [...] mid-urethra. Front view of female urinary tract. 5539-3612 The [employer]. [address] [place] [address]. All rights reserved. This information is not intended as a substitute for professional medical care. Always follow yourhealthcare professional's instructions. Follow Up Care 01/21/2024 09:33:55 With:LARRY THOMAS DO Address: [address] [place] [phone] When:2-4 days [facility] 12-13-2024 Note Discharge Instructions Thank you for allowing [facility] to assist you with your healthcare needs. The following is importantdischarge information regarding your hospital visit. Diagnosis from Today's Visit Bladder pain What to Do Next Instructions from Your Care Team No qualifying data available. Post Acute Orders No qualifying data available. You Need to Schedule the Following Appointments Follow Up with LARRY THOMAS DO When:Within 2-4 days Where:[address] [place] [phone] Allergies NKA Medications Please ask your primary doctor or pharmacist before taking any other medication not listed, including over the counter drugs, herbal medications, vitamins and or supplements as they may interact withur home medications. What How Much When Instructions [...] mid-urethra. Front view of female urinary tract. [phone] [employer]. [address] [place] [address], [place] [address]. All rights reserved. This information is not intended as a substitute for professional medical care. Always follow yourhealthcare professional's instructions. Additional Information VACCINATE! IT SAVES LIVES! Members of the community who have not yet received the COVID-19 vaccine and would like to receive it can visit one of [facility] vaccine clinics. There are many vaccine clinic locations within the [facility]. For locations and available times, please visit www.gettheshot.coronavirus.[place].gov/. It is important to note that some COVID mobile vaccine clinics are held outdoors and may be canceled in rainy or stormy conditions. To learn more about pediatric vaccinations (ages 5-11), we invite you to visit the [facility] webpage. https://www.[facility].org/pages/1960-Tlxjn-Yldoyulqkct-Kxnlpmwvsn-Sffzx-Dpy stions.htmlTo learn more about the COVID-19 vaccine, we invite you to visit the CDC website for a list of frequently asked questions. https://www.cdc.gov/coronavirus/2019-ncov/vaccines/faq.html [facility] [employer] Patient Portal Access Instructions: Stay connected with your healthcare team and access your personal medical information anytime with the [facility] Patient Portal. If you would like a full copy of your medical records please contact the [facility] Medical Records Department Wednesday through Wednesday between 8a.m. and 4:30p.m. Please follow the directions below to access the portal: 1.Access the email account you provided upon registration to the hospital.2.Look for an invitation email from [facility].3.Open the email and access the invitation link: Accept Invitation to [facility]4.Fill in the required alejandro to create your account. Sign into www.[employer] with your username and password that you [...] you will allow to register on the [facility] Patient Portal for access to your information. You can also access the [facility] Patient Portal on the [employer] angelica. Simply click on "Health Records" under "HealthData" and then click on the [facility] logo. [...] Call your local pharmacy or go to http://BiondVax.Ekinops/5R8Ji1n to find one close to you.3.Make use of household items: Use cat litter or old coffee grounds to dispose medications if other options arenot available. Mix your drugs with these household products, seal them in an airtight container andthrow it into the garbage. Call [facility]: [phone] to be sure your drugs can be [...] aware that I should contact my doctor. Patient/Ladle Repairman Signature: Date/Time: Relationship to Patient: Witness Name/Signature: Date/Time: [facility]11-12-2024 Note ORIGINAL EXAMINATION: AP lateral obliques 4 [...] Sign Date: 12/21/2023 4:34:05 PM Ordering Provider: [facility]11-12-2024 Note ORIGINAL EXAMINATION: TWO XRAY VIEWS OF [...] Sign Date: 12/21/2023 4:21:17 PM Ordering Provider: [facility]11-09-2024 Note. MICRO - Microbiology PROCEDURE: Urine Culture [...] Locations *1: This test was performed at: [address], [address]- , [facility]10-31-2024 Hospital Discharge instructions Patient Education 12/09/2023 [...] mid-urethra. Front view of female urinary tract. 2848-7803 [employer]. [address] [place] [address], [place] [address]. All rights reserved. This information is not intended as a substitute for professional medical care. Always follow yourhealthcare professional's instructions. Follow Up Care 12/09/2023 08:33:51 With:LARRY THOMAS DO Address: [address] [place] [phone] When:2-4 days [facility] 10-31-2024 Note Discharge Instructions Thank you for allowing [facility] to assist you with your healthcare needs. The following is importantdischarge information regarding your hospital visit. Diagnosis from Today's Visit Urinary frequency What to Do Next Instructions from Your Care Team No qualifying data available. Post Acute Orders No qualifying data available. You Need to Schedule the Following Appointments Follow Up with LARRY THOMAS DO When:Within 2-4 days Where:[address] [place] [phone] Allergies NKA Medications Please ask your primary [...] mid-urethra. Front view of female urinary tract. 6274-9075 [employer]. [address] [place] [address]. All rights reserved. This information is not intended as a substitute for professional medical care. Always follow yourhealthcare professional's instructions. Additional Information VACCINATE! IT SAVES LIVES! Members of the community who have not yet received the COVID-19 vaccine and would like to receive it can visit one of [facility] vaccine clinics. There are many vaccine clinic locations within the [facility]. For locations and available times, please visit www.gettheshot.coronavirus.[place].gov/. It is important to note that some COVID mobile vaccine clinics are held outdoors and may be canceled in rainy or stormy conditions. To learn more about pediatric vaccinations (ages 5-11), we invite you to visit the [facility] webpage. https://www.[facility].org/pages/6973-Xtxvk-Mftjhtcycry-Biigijhrlh-Jjfoq-Uyd stions.htmlTo learn more about the COVID-19 vaccine, we invite you to visit the CDC website for a list of frequently asked questions. https://www.cdc.gov/coronavirus/2019-ncov/vaccines/faq.html [facility] Patient Portal Access Instructions: Stay connected with your healthcare team and access your personal medical information anytime with the [facility] Patient Portal. If you would like a full copy of your medical records please contact the [facility] Medical Records Department Wednesday through Wednesday between 8a.m. and 4:30p.m. Please follow the directions below to access the portal: 1.Access the email account you provided upon registration to the [facility].2.Look for an invitation email from [facility].3.Open the email and access the invitation link: Accept Invitation to [facility]4.Fill in the required alejandro to create your account. Sign into www.[employer] with your username and password that you [...] you will allow to register on the [facility] Patient Portal for access to your information. You can also access the [facility] Patient Portal on the [employer]loom. Simply click on "Health Records" under "HealthDaMedallia" and then click on the [facility] logo. [...] Call your local pharmacy or go to http://BiondVax.Ekinops/0F1It4k to find one close to you.3.Make use of household items: Use cat litter or old coffee grounds to dispose medications if other options arenot available. Mix your drugs with these household products, seal them in an airtight container andthrow it into the garbage. Call [facility]: [phone] to be sure your drugs can be [...] aware that I should contact my doctor. Patient/Ladle Repairman Signature: Date/Time: Relationship to Patient: Witness Name/Signature: Date/Time: [facility]10-[facility]24 Hospital Discharge instructions Patient Education 11/29/2023 12:04:12 [...] or swelling over your back or spine [phone] [employer]. [address] [place] [address]. All rights reserved. This information is not intended as a substitute for professional medical care. Always follow yourhealthcare professional's instructions. Follow Up Care 11/29/2023 08:56:34 With:Go to emergency room if symptoms worsen Address:Unknown When:2-4 days With:LARRY THOMAS DO Address: [address] [place] [address] Physicians [place], [place] [phone] When:2-4 days [facility] 10-21-2024 Note Discharge Instructions Thank you for allowing [facility] to assist you with your healthcare needs. [...] LARRY THOMAS DO When:Within 2-4 days Where:[address] [facility] [place] [address]- [phone] Allergies NKA Medications Please ask your primary [...] or swelling over your back or spine [phone] The [employer]. [address] [place] [address]. All rights reserved. This information is not intended as a substitute for professional medical care. Always follow yourhealthcare professional's instructions. Additional Information VACCINATE! IT SAVES LIVES! Members of the community who have not yet received the COVID-19 vaccine and would like to receive it can visit one of [facility] vaccine clinics. There are many vaccine clinic locations within the [facility]. For locations and available times, please visit www.gettheshot.coronavirus.[place].gov/. It is important to note that some COVID mobile vaccine clinics are held outdoors and may be canceled in rainy or stormy conditions. To learn more about pediatric vaccinations (ages 5-11), we invite you to visit the [facility] webpage. https://www.[facility].org/pages/3212-Dlhrf-Xlojetberzt-Wnrysfenkr-Woqfe-Axi stions.htmlTo learn more about the COVID-19 vaccine, we invite you to visit the CDC website for a list of frequently asked questions. https://www.cdc.gov/coronavirus/2019-ncov/vaccines/faq.html [facility] [employer] Patient Portal Access Instructions: Stay connected with your healthcare team and access your personal medical information anytime with the [facility] [employer] Patient Portal. If you would like a full copy of your medical records please contact the [facility] Medical Records Department Wednesday through Wednesday between 8a.m. and 4:30p.m. Please follow the directions below to access the portal: 1.Access the email account you provided upon registration to the [facility].2.Look for an invitation email from [facility].3.Open the email and access the invitation link: Accept Invitation to [facility].Fill in the required alejandro to create your account. Sign into [email or web address] with your username and password that you [...] you will allow to register on the [facility] Ltd Patient Portal for access to your information. You can also access the [facility] Patient Portal on the memloom. Simply click on "Health Records" under "HealthDaMedallia" and then click on the [facility] logo. [...] Call your local pharmacy or go to [email or web address] to find one close to you.3.Make use of household items: Use cat litter or old coffee grounds to dispose medications if other options arenot available. Mix your drugs with these household products, seal them in an airtight container andthrow it into the garbage. Call [facility]: [phone] to be sure your drugs can be [...] aware that I should contact my doctor. Patient/Ladle Repairman Signature: Date/Time: Relationship to Patient: Witness Name/Signature: Date/Time: [facility] Note ORIGINAL HISTORY: Pain COMPARISON: No FINDINGS: [...] Date: 11/29/2023 11:51:51 AM Ordering Provider: [facility]24 Note ORIGINAL EXAMINATION: CT OF THE [...] Sign Date: 04/14/2023 10:35:22 AM Ordering Provider: [facility]04-26-2023 Miscellaneous Notes* Telephone Encounter - Brenton Jennings RN - 06/03/2022 11:26 AM EDT Received a request from [facility] for all of Ct's left breast cancer treatment medical records. Faxed the request to medical records on [facility], fax confirmation sheet received. Brenton Jennings RN [facility] Note ORIGINAL EXAMINATION: ULTRASOUND OF THE [...] Sign Date: 04/15/2022 10:15:33 AM Ordering Provider: [facility]03-08-2023 Note ORIGINAL EXAMINATION: ULTRASOUND OF THE [...] Sign Date: 04/15/2022 10:15:33 AM Ordering Provider: [facility]02-28-2023 NoteHNO ID: [id number] Author: Paula Alaniz MD Service: ? Author [...] needle core breast biopsies on 03/23/2022 at [facility]. Findings of "fat necrosis, inflammation and dense fibrosis, vascular calcifications". The radiologist states that pathology findings are [...] cancer Kidney Disease Sister Heart disease Brother [place] The review of systems data was entered by the nurse and reviewed by dc Nursing Notes: Mini Brooke LPN 04/06/2022 9:50 AM Signed [...] of skin c (more content not included)... [facility]02-28-2023 History of Present illness Narrative* Paula [...] needle core breast biopsies on 03/23/2022 at [facility]. Findings of "fat necrosis, inflammation and dense fibrosis, vascular calcifications". The radiologist states thatpathology findings are not [...] cancer Kidney Disease Sister Heart disease Brother [place] The review of systems data was entered by the nurse and reviewed by dc Nursing Notes: Mini Brooke LPN 04/06/2022 9:50 AM Signed [...] C (97.8 F), height 157.5 cm (5' 2"), weight 73.9 kg (163 lb), SpO2 99 [...] her studies and testing were done at [facility], I have recommended that she proceed with her evaluation/treatment there. The breast radiologists there have recommended wire localization lumpectomy of the left breast. I have told her that I could offer her the same but it would be at [facility]. She states thatshe would prefer [facility] as it is closer to home. The [...] Low Paula Alaniz MD documented in this encounterDayton [facility]02-27-[facility]23 Nurse Note* Mini Brooke, PUBLISHING SYSTEMS ANALYST - 04/06/2022 9:47 AM EST REVIEW OF [...] ago Mini Brooke LPN documented in this encounterDayton [facility]12-15-2022 Note ORIGINAL FROM: JERRELL [address] [place], [place] [address] PROCEDURE FOR: CT [address] [place] [id number] Home: PID#: [id number] Exam#: [id number] : 1940 Age: 81 TO: ALANNA WRIGHT DO [facility] [place] [address] Fax: NO FAX EXAMINATION: ULTRASOUND OF THE [...] ALANNA WRIGHT CLINICAL: MAMMOGRAPHIC DENSITY LEFT BREAST. Move Coordinator: JOSIE RUIZ RT(R) RDMS letter sent: Biopsy Recommended BI-RADS 4 and 5 Ultrasound BI-RADS: 4 Suspicious for malignancy [facility]12-15-20[facility] Note ORIGINAL FROM: [place] [address] PROCEDURE FOR: CTSophia DALTON [address] [place] [id number] Home: PID#: [id number] Exam#: [id number] : 1940 Age: 81 TO: ALANNA WRIGHT DO [facility] [place] [address] Fax: NO FAX EXAMINATION: ULTRASOUND OF THE [...] ALANNA WRIGHT CLINICAL: MAMMOGRAPHIC DENSITY LEFT BREAST. Move Coordinator: JOSIE RUIZ RT(R) RDMS letter sent: Biopsy Recommended BI-RADS 4 and 5 Ultrasound BI-RADS: 4 [facility] Hospital Discharge instructions Patient Education 12/25/2021 17:00:50 Dizziness, Uncertain Cause Dizziness (Uncertain Cause) Dizziness is a common symptom. It may be described as lightheadedness, spinning, or feeling like you are going to faint. Dizziness can have many causes. Be sure to tell the healthcare provider about: All medicines you take, including prescription, crkz-lkz-qzeynhm, herbs, and supplements Any other symptoms you [...] Chest, arm, neck, back, or jaw pain [phone] The [employer]. [address] [place] [address]. All rights reserved. This information is not [...] medicine was given, you may use an yymo-wbv-ouqbbqv product made for clearingearwax (such as Debrox or Murine Earwax Drops). These contain carbamide peroxide and are available yefj-cmy-odbmjkj. Lie down with the blocked ear facing [...] david pins, keys or other objects to "clean" the ear canal. This can cause infection [...] ear Headache, neck pain or stiff neck [phone] The [employer]. [address] [place] [address]. All rights reserved. This information is not intended as a substitute for professional medical care. Always follow yourhealthcare professional's instructions. Follow Up Care 12/25/2021 15:48:16 With:ALANNA WRIGHT DO Address: [address] [place] [phone] When:2-4 days [facility] 11[facility]17[facility]2022 Note Discharge Instructions Thank you for allowing [facility] to assist you with your healthcare needs. [...] WRIGHT DO When Within 2-4 days Where: [address] [place] [phone] Allergies NKA Medications Please ask your primary [...] about: All medicines you take, including prescription, hgai-yfd-qfqgayg, herbs, and supplements Any other symptoms you [...] Chest, arm, neck, back, or jaw pain [phone] The [employer]. [address] [place], [place] [address]. All rights reserved. This information is not [...] medicine was given, you may use an ngme-exf-xgszafa product made for clearingearwax (such as Debrox or Murine Earwax Drops). These contain carbamide peroxide and are available fayj-ozr-buqzipv. Lie down with the blocked ear facing [...] david pins, keys or other objects to "clean" the ear canal. This can cause infection [...] ear Headache, neck pain or stiff neck [phone] The [employer]. [address] [place] [address], [place] [address]. All rights reserved. This information is not intended as a substitute for professional medical care. Always follow yourhealthcare professional's instructions. Additional Information VACCINATE! IT SAVES LIVES! Members of the community who have not yet received the COVID-19 vaccine and would like to receive it can visit one of [facility] vaccine clinics. There are many vaccine clinic locations within the [facility]. For locations and available times, please visit www.[email or web address].[place].org. It is important to note that some COVID mobile vaccine clinics are held outdoors and may be canceled in rainy orstormy conditions. To learn more about pediatric vaccinations (ages 5-11), we invite you to visit the [facility] webpage. https://www.[facility].org/pages/3601-Kkqju-Nctfmfhfmyn-Fqctqqsbyk-Dqpwj-Lol stions.htmlTo learn more about the COVID-19 vaccine, we invite you to visit the [facility] website for a list of frequently asked questions. [email or web address]-[email or web address]-[email or web address]/zdrcv-Wsxynyb-Lzweoxvmyc _Asked-Questions.pdf [facility] Patient Portal Access Instructions: Stay connected with your healthcare team and access your personal medical information anytime with the [facility] Patient Portal. If you would like a full copy of your medical records please contact the [facility] Medical Records Department Wednesday through Wednesday between 8a.m. and 4:30p.m. Please follow the directions below to access the portal: 1.Access the email account you provided upon registration to the [facility].2.Look for an invitation email from [facility].3.Open the email and access the invitation link: Accept Invitation to [facility]4.Fill in the required alejandro to create [...] you will allow to register on the [facility] Patient Portal for access to your information. You can also access the [facility] [employer] Patient Portal on the memloom. Simply click on "Health Records" under "HealthDaMedallia" and then click on the [facility] logo. HOW TO SAFELY DISPOSE OF PRESCRIPTION [...] Call your local pharmacy or go to http://BiondVax.Ekinops/6L2Bu9d to find one close to you.3.Make use of household items: Use cat litter or old coffee grounds to dispose medications if other options arenot available. Mix your drugs with these household products, seal them in an airtight container andthrow it into the garbage. Call [facility]: [phone] to be sure your drugs can be [...] aware that I should contact my doctor. Patient/Ladle Repairman Signature: Date/Time: Relationship to Patient: Witness Name/Signature: Date/Time: [facility] Hospital Discharge instructions Patient Education 12/06/2021 14:31:46 Dizziness, Kjgt-zk-Pcof Dizziness Dizziness is a common problem. It [...] balance is fine. 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 Take sptj-ibw-sqnqhke and prescription medicines only as told by [...] 01/14/2012 Document Revised: 01/28/2018 Document Reviewed: 02/11/2017 Jumo Patient Education 2020 [employer]. 12/06/2021 14:31:38 Fall Prevention and Home Safety, Gndc-rc-Vhxe Fall Prevention and Home Safety Falls cause [...] Document Reviewed: 04/26/2012 ExitCare Patient Information 2015 [employer]. This information is not intended to replace advicegiven to you by your health care provider. Make sure you discuss any questions you have with your health care provider. Follow Up Care 12/03/2021 14:18:30 With:[facility], Address:Unknown When:1-2 days With:ALANNA WRIGHT DO Address: [address] [place] [phone]- When:1-2 days Comments:Please call the office to schedule a follow up appointment [facility] 10-29-2022 Note Discharge Instructions Thank you for allowing [facility] to assist you with your healthcare needs. [...] Bilateral w/ Fer 12/12/2021 03:00 PM EDT [place] [facility] Follow Up Appointments Follow Up with [facility], When Within 1-2 days Follow Up with ALANNA WRIGHT DO When Within 1-2 days Why: Please call the office to schedule a follow up appointment Where: [address] [place] [phone]- The Following Activity and Diet Have Been [...] balance is fine. 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 Take jwcu-gkq-yfwqtzf and prescription medicines only as told by [...] 01/14/2012 Document Revised: 01/28/2018 Document Reviewed: 02/11/2017 Jumo Patient Education 2020 [employer] Fall Prevention and Home Safety Falls [...] Document Reviewed: 04/26/2012 ExitCare Patient Information 2015 [employer] [facility]. This information is not intended to replace advicegiven to you by your health care provider. Make sure you discuss any questions you have with your health care provider. Additional Information VACCINATE! IT SAVES LIVES! Members of the community who have not yet received the COVID-19 vaccine and would like to receive it can visit one of [facility] vaccine clinics. There are many vaccine clinic locations within the [facility]. For locations and available times, please visit https://gettheshot.coronavirus.[place].gov/. It is important to note that some COVID mobile vaccine clinics are held outdoors and may be canceled in rainy or stormy conditions. To learn more about pediatric vaccinations (ages 5-11), we invite you to visit the [facility] webpage. https://www.MEEPs.org/pages/3640-Gquvk-Ywvzixhgqxx-Zuuftdipgs-Yucvd-Kzp stions.htmlTo learn more about the COVID-19 vaccine, we invite you to visit the [facility] website for a list of frequently asked questions. https://[email or web address]/assets/Zjeprsod-uop-Ogjzuqcv/lfqxm-Hcxdyph-Pwskqbxgaz _Asked-Questions.pdf [facility] [employer] Patient Portal Access Instructions: Stay connected with your healthcare team and access your personal medical information anytime with the [facility] Patient Portal.If you would like a full copy of your medical records, please contact the [facility] Medical Records Department, Wednesday through Wednesday between 8a.m. and 4:30p.m. Please follow the directions below to access the portal: 1.Access the email account you provided upon registration to the [facility].2.Look for an invitation email from [facility].3.Open the email and access the invitation link: Accept Invitation to [facility]4.Fill in the required alejandro to create your account. Sign into www.[employer] with your username and password that you [...] you will allow to register on the [facility] Patient Portal for access to your information. You can also access the [facility] Patient Portal on the memloom. Simply click on "Health Records" under "HealthData" and then click on the [employer] logo. HOW TO SAFELY DISPOSE OF PRESCRIPTION [...] Call your local pharmacy or go to http://BiondVax.Ekinops/2I4Ho4l to find one close to you.3.Make use of household items: Use cat litter or old coffee grounds to dispose medications if other options arenot available. Mix your drugs with these household products, seal them in an airtight container andthrow it into the garbage. Call [facility]: [phone] to be sure your drugs can be [...] CHART COPY. Signatures Patient Education Materials Dizziness, Gqan-zl-Xcsn Fall Prevention and Home Safety, Tqdy-tc-Hipf Medication Leaflets My discharge plan and instructions have been reviewed and explained to me and I,CT DALTON understand my current condition and have read and understand these discharge instructions. I have received a written copy of the plan/instructions. If I have questions, I am aware that I should contact my doctor. Patient/Ladle Repairman Signature: Date/Time: Relationship to Patient: Witness Name/Signature: Date/Time: [id number] Note Discharge Instructions Thank you for allowing [...] Bilateral w/ Fer 12/12/2021 03:00 PM EDT [place] [facility] Follow Up Appointments Follow Up with [facility], [phone] When Within 1-2 days Follow Up with ALANNA WRIGHT DO When Within 1-2 days Why: Please call the office to schedule a follow up appointment Where: [address] [place] [address] [place] [address]- The Following Activity and Diet Have Been [...] to receive it can visit one of [facility] vaccine clinics. There are many vaccine clinic locations within the [facility]. For locations and available times, please visit https://gettheshot.[email or web address].[place].gov/. It is important to note that some COVID mobile vaccine clinics are held outdoors and may be canceled in rainy or stormy conditions. To learn more about pediatric vaccinations (ages 5-11), we invite you to visit the [facility] webpage. https://www.akSmacktive.coms.org/pages/1508-Fipqu-Rodubgasdox-Pjhphzjgog-Qvzrc-Xhs stions.htmlTo learn more about the COVID-19 vaccine, we invite you to visit the [facility] website for a list of frequently asked questions. [email or web address]://[email or web address]/assets/Ouvbbkrt-dpa-Jkickqgh/gevqf-Oyvshcx-Jkmbrxtace _Asked-Questions.pdf [facility] [employer] Patient Portal Access Instructions: Stay connected with your healthcare team and access your personal medical information anytime with the [facility] Patient Portal.If you would like a full copy of your medical records, please contact the [facility] Medical Records Department, Wednesday through Wednesday between 8a.m. and 4:30p.m. Please follow the directions below to access the portal: 1.Access the email account you provided upon registration to the [facility].2.Look for an invitation email from [facility].3.Open the email and access the invitation link: Accept Invitation to [facility]4.Fill in the required alejandro to create your account. Sign into www.[employer] with your username and password that you [...] you will allow to register on the [facility] Patient Portal for access to your information. You can also access the [facility] Patient Portal on the [employer] angelica. Simply click on "Health Records" under "Fresh [facility]Medallia" and then click on the [employer]Motion logo. HOW TO SAFELY DISPOSE OF PRESCRIPTION [...] Call your local pharmacy or go to http://BiondVax.Ekinops/0B1Bg6e to find one close to you.3.Make use of household items: Use cat litter or old coffee grounds to dispose medications if other options arenot available. Mix your drugs with these household products, seal them in an airtight container andthrow it into the garbage. Call [facility]: [phone] to be sure your drugs can be [...] aware that I should contact my doctor. Patient/Ladle Repairman Signature: Date/Time: Relationship to Patient: Witness Name/Signature: Date/Time: [facility]tt[facility]01 Discharge summary Date of Service 12/06/21 Discharge Diagnosis 1. Unsteady gait (R26.81 - ICD-10-CM) 2. Dizziness (R42 - ICD-10-CM) Dizziness ([id number] - PNED) HTN - Hypertension ([id number] - PNED) Additional Orders: Ordered: atenolol 25 mg oral tablet,Dose : 25 mg = 1 tab(s), Oral, qDay, # 30 tab(s), 0 Refill(s), Pharmacy: [facility]/pharmacy #[id number], 160, cm, 12/03/21 21:46:00 EDT, Height [...] CT head, chest x-ray, MRI brain, TTE, [place]- [place] unremarkable.ECG showed LBBB, no prior EKG [...] 100 mg daily, hydralazine 25 mg daily, lumwywqbxtvkkrnetgh13 mg daily, lisinopril 20 mg daily. In [...] to schedule a follow up appointment Where: [address] [place] [address] [place] [address]- Follow Up Appointments No qualifying data available. Follow Up Labs/Studies Discharge Labs No Follow-up Labs Discharge Studies No Follow-up Studies Discharge Diet No qualifying data available. Discharge Activity No qualifying data available. Readmission Risk/Palliative Score No qualifying data available. Digitally Signed by CODY RILEY MD on 12/06/2021 11:43 AM [facility] [id number] Discharge summary Date of Service 12/06/21 Discharge Diagnosis 1. Unsteady gait (R26.81 - ICD-10-CM) 2. Dizziness (R42 - ICD-10-CM) Dizziness ([id number] - PNED) HTN - Hypertension ([id number] - PNED) Additional Orders: Ordered: atenolol 25 mg oral tablet,Dose : 25 mg = 1 tab(s), Oral, qDay, # 30 tab(s), 0 Refill(s), Pharmacy: [facility]/pharmacy #[id number], 160, cm, 12/03/21 21:46:00 EDT, Height [...] CT head, chest x-ray, MRI brain, TTE, [place]- [place] unremarkable.ECG showed LBBB, no prior EKG [...] 100 mg daily, hydralazine 25 mg daily, upupdcffryrkonlzmin66 mg daily, lisinopril 20 mg daily. In [...] to schedule a follow up appointment Where: [facility] [place] [address]- Follow Up Appointments No qualifying data available. Follow Up Labs/Studies Discharge Labs No Follow-up Labs Discharge Studies No Follow-up Studies Discharge Diet No qualifying data available. Discharge Activity No qualifying data available. Readmission Risk/Palliative Score No qualifying data available. Digitally Signed by CODY RILEY MD on 12/06/2021 11:43 AM [facility] HospitalHkzqfxbh85-41-3286 Note Chief Complaint Transition plan Transitional Action Points Currently is transition over to [facility] in [place] is able to accept Patient echo explained [...] are recommending SNF. She was excepted by [facility] in [place], will require COVID screen prior to transfer. 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 I Magdalena Ashley PIPE FITTER HELPER, personally performed the services described in this documentation, as described by Gladys Betancourt LPN in my presence and it is both accurate and complete. This document is transcribed using voice recognition software may contain typographical errors. Digitally Signed by MAGDALENA ASHLEY on 12/06/2021 09:45 AM [facility] HospitalCizqumpn14-28-8772 Note ORIGINAL EXAMINATION: TWO XRAY VIEWS OF [...] 12/06/2021 12:06:38 AM Ordering Provider: FRIEDA HOLLAND [facility] HospitalWubykcni42-00-8716 Note Date of Service 12/05/2021 Subjective 81-year-old [...] ED documented asnegative. Patient was transfer from [place] to [facility] for further cardiovascular work-up. Orthostatics performed and [...] Zara no answer, called patient's son Ang [phone] Who states that patient's mental status has [...] FRIEDA HOLLAND MD on 12/05/2021 06:41 PM [facility] [id number] Note ORIGINAL EXAMINATION: TWO XRAY VIEWS OF [...] Date: 12/06/2021 12:06:38 AM Ordering Provider: FRIEDA HOLLANDK[facility] [id number] Note ORIGINAL EXAMINATION: MR Brain with and [...] pathology. 2. Moderate parenchymal volume loss and twhi-gr-ilupqcnh chronic microvascular white matter ischemic disease. Interpreted by: Alanna Chin MD Preliminary Report By: Alanna Chin MD Electronically signed By Alanna Chin MD Dictated Date: 12/05/2021 1:36:40 PM Prelim Date: 12/05/2021 1:40:15 PM Sign Date: 12/05/2021 1:40:15 PM Ordering Provider: [facility]10-28-2022 Note ORIGINAL EXAMINATION: MR Brain with [...] pathology. 2. Moderate parenchymal volume loss and mxhw-iy-xhkyguaw chronic microvascular white matter ischemic disease. Interpreted by: Alanna Chin MD Preliminary Report By: Alanna Chin MD Electronically signed By Alanna Chin MD Dictated Date: 12/05/2021 1:36:40 PM Prelim Date: 12/05/2021 1:40:15 PM Sign Date: 12/05/2021 1:40:15 PM Ordering Provider: [facility]10-28[facility]2022 Note Date 12/05/2021 Chief complaint Transition [...] Physical therapy notes on 12/04 recommending SNF. 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 Digitally Signed by MAGDALENA ASHLEY on 12/05/2021 06:42 PM [facility] [id number] Note Date of Service 12/04/2021` Chief Complaint [...] ED documented asnegative. Patient was transfer from [place] to [place] for further cardiovascular work-up. Orthostatics performed and negative. On review of telemetry patient with episodes of bradycardia will decre ase atenolol. Patient ordered for MRI TTE and carotid duplex. PT/OT evaluation pending. Patient seen and examined this morning Patient does appear to have advanced dementia She does know that she is in [place] but speaks in a roundabout way about [...] FRIEDA HOLLAND MD on 12/04/2021 03:40 PM [id number] Note Chief Complaint Transition Plan. 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 I Magdalena Ashley PIPE FITTER HELPER, personally performed the services described in this documentation, as described by Danielle CARCAMO in my presence and it is both accurate and complete. This document transcribed using voice recognition software may contain typographical errors. Digitally Signed by MAGDALENA ASHLEY on 12/04/2021 02:59 PM [id number] History and physical note [place] [facility] Hospitalist History and Physical Date of Admission: 12/03/2021 Chief complaint: Dizziness History of present illness: History is taken from talking with the patient. Patient was accepted asa transfer from [place] emergency department by my colleague. 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 Tubal ligation Family history: Mother: High blood [...] Rate18(DEC 03 21:30)16(DEC 03 14:53)20(DEC 03 14:26) MUR220(DEC 03 21:30)136(DEC 03 21:30)H 187(DEC 03 16:20) [...] Appearance (POC): Clear (12/03/21 16:12:00) Urine Specific [place] (POC): <=1.005 Abnormal (12/03/21 16:12:00) Urine Glucose [...] Patient was accepted as a transfer from [facility] emergency department by my colleague on 12/03/2021 [...] ANA WILSON MD on 12/03/2021 09:55 PM [id number] Note ORIGINAL EXAMINATION: CT OF THE HEAD [...] Sign Date: 12/03/2021 4:02:30 PM Ordering Provider: BLANCA ARRIETA [facility] [id number] Note ORIGINAL EXAMINATION: CT OF THE HEAD [...] Sign Date: 12/03/2021 4:02:30 PM Ordering Provider: [facility]10-26-2022 Evaluation + Plan noteExtracted from: Title:Clinical Document Author:ANA WILSON MD Date:12/03/21 [facility] Medicine Hospitalist History and Physical Date of Admission: 12/03/2021 Chief complaint: Dizziness History of present illness: History is taken from talking with the patient. Patient was accepted as a transfer from [place] emergency department by my colleague. 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 Tubal ligation Family history: Mother: High blood [...] Rate18(DEC 03 21:30)16(DEC 03 14:53)20(DEC 03 14:26) UQD993(DEC 03 21:30)136(DEC 03 21:30)H 187(DEC 03 16:20) [...] Appearance (POC): Clear (12/03/21 16:12:00) Urine Specific [place] (POC): <=1.005 Abnormal (12/03/21 16:12:00) Urine Glucose [...] Patient was accepted as a transfer from [facility] emergency department by my colleague on 12/03/2021 [...] MA Mammo Screening Bilateral w/ Fer 12/12/21 [facility] Discharge summary Author Jean Claude Harry [facility] Note Date/Time July 24, 2024 3:52 am [facility] Medical Records Department [address] [place] [address] Emergency Department Summary 07/24/24 MR#: [id number] Acct: [id number] Name: CT DALTON Rep #:[id number] : [id number] From: Jean Claude Harry MD PCP: Dr. Jairon Medel MD Status:R EG ER Location: ED HPI HPI - Fall History of Present Illness Chief Complaint: Fall Informant: patient Occured/Mechanism Occurred: Today Mechanism/Context: Yes same level fall Pain/Injury Pain Location: lower extremity Quality of Pain: Sharp Current Severity: Moderate Maximum Severity: Moderate Narrative Narrative: 83-year-old female history of dementia, breast cancer and prediabetes. Took a fall today at [facility]. Now having right hip painand unable to walk on her right hip. Denies any other complaints. Denies hitting her head. Denies head or neck pain. Prior similar symptoms: No Recent Illness/Hospitalization: No PFSH PFSH Medical History Malignant neoplasm of breast Prediabetes Hypertension Hyperlipemia Secondary parkinsonism Dementia AD (Alzheimer's disease) Home Medications ?Medication ?Instructions ?Recorded ?Last Taken ?Type acetaminophen 500 mg tablet 500 mg PO DAILY PRN fever or pain 04/20/17 Unknown History (Tylenol Extra Strength) atorvastatin 10 mg tablet 20 mg PO QHS 04/20/17 Unknow n History calcium 600 mg (as 1 ea PO DAILY 04/20/17 Unkno wn History carbonate)-vitamin D3 20 mcg (800 unit) tablet losartan 50 mg tablet (Cozaar) 50 mg PO DAILY 04/20/17 04/27/17 08:00 History pioznrimmxes-Yp-dxen-minerals 1 ea PO DAILY 04/20/17 U nknown History (Multiple Vitamin, Womens tablet) alendronate 70 mg tablet 70 mg PO QWEEK 07/24/24 Unkn own History buspirone 5 mg tablet 5 mg PO BID 07/24/24 Unknown History divalproex 125 mg tablet,delayed 125 mg PO QHS 5 Unknown History release donepezil 10 mg tablet 10 mg PO DAILY 07/24/24 Unkn own History escitalopram oxalate 10 mg tablet 10 mg PO DAILY 07/24 Unknown History ferrous sulfate 325 mg (65 mg 325 mg PO MOWEFR 5 Unknown History iron) tablet furosemide 20 mg tablet (Lasix) 20 mg PO DAILY 5 Unknown History hydrocodone-acetaminophen 5-325mg 1 tab PO Q6H PRN belkys n 3 days #14 07/24/24 Unknown Rx 5mg-325mg tabs memantine 28 mg capsule 28 mg PO DAILY 07/24/24 Unkn own History sprinkle,extended release 24hr nystatin 100,000 unit/gram topical 1 applic topical BI D PRN PRN groin 07/24/24 Unknown History cream polyethylene glycol 3350 17 17 g PO DAILY 07/24/24 Unk nown History gram/dose oral powder (Miralax) Allergy/AdvReac Type Severity Reaction Status Date / Time No Known Allergies Allergy Verified 07/24/24 01:25 Social History Smoking Status: Never smoker ROS ROS ED ROS Narrative Denies recent illness. Constitutional Constitutional ED: Denies chills or fever(s) Eyes Eyes: Denies blurry vision ENT ENT ED: Denies ear pain Cardiovascular Cardiovascular: Denies chest pain Respiratory/Chest Respiratory/Chest: Denies cough Gastrointestinal Gastrointestinal: Denies abdominal pain Genitourinary Genitourinary ED: Denies dysuria Musculoskeletal Musculoskeletal: Denies arthralgias Integumentary Denies abscess Neurologic Neurologic: Denies headache(s) Psychiatric Psychiatric: Denies anxiety Endocrine Endocrinology: Denies polydipsia Hematologic/Lymphatic Hematologic/Lymphatic: Denies easy bleeding or easy bruising Allergic/Immunologic Allergic/Immunologic ED: Denies mouth swelling or tongue swelling EXAM Physical Exam Narrative Exam Narrative: 83-year-old female sitting up in bed. Vital signs stable afebrile. H EENT exampupils round react light. Mytrex membranes. No trauma to her head or scalp. Nontender no hematoma. Neck and spine nontender. Back and spine nontender. [place]. Lungs clear to auscultation bilaterally. Heart regular rhythm rate about 60 no murmur. Chest wall ribs nontender. Abdomen soft nontender. Pelvicgirdle intact. Her right leg is slightly shortened and rotated externally. Shehas pain with active and passive movement of the right hip. The distal femur, knee, right lower leg ankle and foot are nontender. Normal dorsi plantarflexion. Left lower extremity and left hip are nontender. Normal range of motion. Upper extremities nontender normal curer foam rubber strength. Neurologically she is awake and alert. She answers questions she does have dementia and some confusion. She does follow commands. Const Vital Signs: 07/24/24 01:24 07/24/24 01:24 Temperature 98 F Temperature Source Oral Pulse Rate 53 L Respiratory Rate 16 Respiratory Effort Normal Non-Labored Respiratory Depth Normal Respiratory Pattern Normal Blood Pressure 149/90 H Blood Pressure Mean 109 Pulse Ox 98 Oxygen Delivery Method Room Air Room Air Positive well nourished and well developed; Negative for cachectic, contracturesor unkempt General Appearance ED: well developed and NAD; Negative for unkempt, cachectic or contractures Nutritional Appearance: Negative for cachectic HEENT Reports normocephalic atraumatic and trauma; Negative for contusion, hematoma or tenderness Eyes PERRL and EOMs intact bilaterally Neck full ROM, no lymphadenopathy and supple Chest Wall inspection of chest normal and palpation of chest normal Resp normal respiratory effort, no retractions and clear to auscultation bilaterally Cardio regular rate, regular rhythm, S1 normal heart sound, S2 normal heart sound and no murmurs GI non-tender, non-distended and no masses Palpation: soft; Negative for guarding or rebound tenderness present Back/Spine no CVA tenderness Back/Spine Narrative: Back and spine are nontender. Cervical Spine: Negative for cervical spine tenderness Thoracic Spine / Upper Back: Negative for thoracic spinal tenderness Lumbar Spine / Lower Back: Negative for lumbar spinal tenderness Neuro No oriented x3, moves all extremities and no focal motor deficits Neuro Narrative: Dementia. But awake and alert. Answers questions follows commands. Sensorium / Orientation: alert, oriented to person, oriented to place and confused; Negative for oriented to time Motor Exam: strength 5/5 throughout Psych mental status grossly normal and thought process normal Appearance: Negative for unkempt Skin Lesions: no lesions Rashes: no rashes MDM MDM MDM Narrative Medical decision making narrative: 83-year-old female complaining of right hip pain post fall concern for hip fracture versus dislocation. X-ray being obtained. Repeat exam at 3:25 AM unchanged. I did speak with the patient's extended-care facility. They are comfortable with her being discharged back to their facilityand have the staff to care for with the pubic ramus fracture. There is really no reason to admitted to the hospital at this time. This is nonoperable. She will be given a dose of morphine for pain tonight. History & Record Review Discussion w/independent historian: Patient Additional record(s) reviewed:: Prior inpatient record, Prior outpatient record,Prior ED visit and Prior labs Radiography Diagnostic Testing: Clinical Impression(s) from Imaging Studies Hip/Pelvis X-Ray 07/24/24 01:50 IMPRESSION: Acute right superior ramus fracture. Right hip moderate degenerative changes. Reading Location: [place] [address] Right hip and pelvis x-ray, 3 views, interpreted by myself and the radiologist. Shows acute right superior pubic ramus fracture. No hip fracture. Chronic changes and degenerative arthritis. Discharge Plan Triage Chief Complaint: Fall ED Provider: Jean Claude Harry Dx/Rx/DC Orders Clinical Impression: Fall, Fracture, pelvis closed, History of dementia Instructions: ED Pelvic Fracture Prescriptions: New hydrocodone-acetaminophen 5-325 mg tablet 1 tab PO Q6H PRN (Reason: pain) 3 Days Qty: 14 0RF No Action losartan [Cozaar] 50 MG tablet 50 mg PO DAILY atorvastatin 10 MG tablet 20 mg PO QHS acetaminophen [Tylenol Extra Strength] 500 MG tablet 500 mg PO DAILY PRN (Reason: fever or pain) Multiple Vitamin, Womens 1 EACH tablet 1 ea PO DAILY calcium carbonate-vitamin D3 1 EACH tablet 1 ea PO DAILY alendronate 70 mg tablet 70 mg PO QWEEK divalproex 125 mg tablet,delayed release (DR/EC) 125 mg PO QHS donepezil 10 mg tablet 10 mg PO DAILY ferrous sulfate 325 mg (65 mg iron) tablet 325 mg PO MOWEFR nystatin 100,000 unit/gram cream 1 applic topical BID PRN PRN (Reason: groin) memantine 28 mg capsule,sprinkle,ER 24hr 28 mg PO DAILY polyethylene glycol 3350 [Miralax] 17 gram/dose powder 17 g PO DAILY furosemide [Lasix] 20 mg tablet 20 mg PO DAILY buspirone 5 mg tablet 5 mg PO BID escitalopram oxalate 10 mg tablet 10 mg PO DAILY Primary Care Provider: Jairon Medel Referrals: Jairon Medel MD [Primary Care Provider] - As Needed Activity Restrictions/Additional Instructions: She has a superior pubic ramus fracture which is a pelvis fracture. These are not treated with surgery. They generally heal over weeks to months. She can do activity as tolerated. She may walk or be in a wheelchair or obviously lying in bed. Tylenol for pain. [place] as needed for pain also. Print Language: Croatian Disposition Disposition: Home, Self Care What to do if you have Problems For any increased pain, shortness of breath, bleeding, nausea or vomiting, chestpain, or any unexpected problems, contact your Primary Care Provider. Call [facility] ([phone]) or report to the closest Emergency Room. Call 911 if necessary. 07/24/242 <Electronically signed by Jean Claude Harry MD> Cosigner Signature (if applicable): CC: Dr. Jairon Medel MD ~ Signed [facility] Work Phone: Evaluation + Plan note Future Appointments Appointment Date:05/05/2021 09:00:00 AM Scheduled Provider:ALANNA WRIGHT DO Location: [place] Appointment Type:[facility] Evaluation [facility] Plan note Future Appointments Appointment Date:11/06/2021 08:30:00 AM Scheduled Provider:ALANNA WRIGHT DO Location: [place] Appointment Type:PC Wellness Medicare with Labs Future Scheduled Tests Radiology* XR Humerus Minimum 2 Views Right 05/05/21 [facility] Evaluation [facility] Plan note Future Appointments Appointment Date:01/15/2022 02:00:00 PM Scheduled Provider: Location:[facility] Appointment Type:MA Mammogram Screening Bilateral w/ Fer Appointment Date:02/25/2022 10:00:00 AM Scheduled Provider:LARRY THOMAS DO Location:[facility] Appointment Type:PC PIPE FITTER HELPER Appointment Date:03/13/2022 10:30:00 AM Scheduled Provider:ALANNA WRIGHT DO Location:[facility] [place] Appointment Type:PC OV Future Scheduled Tests Radiology* MA Mammo Screening Bilateral w/ Fer 01/15/22 [facility] Evaluation + Plan note Future Appointments Appointment Date:02/25/2022 10:00:00 AM Scheduled Provider:LARRY THOMAS DO Location:[facility] Appointment Type:PC PIPE FITTER HELPER Appointment Date:03/13/2022 10:30:00 AM Scheduled Provider:ALANNA WRIGHT DO Location: [place] Appointment Type:PC OV Future Scheduled Tests Radiology* US Biopsy Breast Left 1st Lesion 01/22/22 [facility] Evaluation + Plan note Future Appointments Appointment Date:03/05/2022 10:00:00 AM Scheduled Provider:LARRY THOMAS DO Location:[facility] Appointment Type:PC PIPE FITTER HELPER Appointment Date:03/13/2022 10:30:00 AM Scheduled Provider:ALANNA WRIGHT DO Location: [place] Appointment Type:PC OV Appointment Date:03/23/2022 01:00:00 PM Scheduled Provider: Location:[facility] Appointment Type:US Biopsy Breast Left 1st Lesion Future Scheduled Tests Radiology* US Biopsy Breast Left 1st Lesion 03/23/22 [facility] Evaluation + Plan note Future Appointments Appointment Date:03/13/2022 10:30:00 AM Scheduled Provider:ALANNA WRIGHT DO Location: [place] Appointment Type:PC OV Appointment Date:03/23/2022 01:00:00 PM Scheduled Provider: Location:[facility] Appointment Type:US Biopsy Breast Left 1st Lesion Appointment Date:04/16/2022 04:30:00 PM Scheduled Provider:LARRY THOMAS DO Location:[facility] Appointment Type:PC OV Future Scheduled Tests Laboratory* Hepatic Function Panel 04/13/22 Radiology* US Biopsy Breast Left 1st Lesion 03/23/22 * US Renal 03/09/22 [facility] Evaluation + Plan note Future Appointments Appointment Date:04/16/2022 04:30:00 PM Scheduled Provider:LARRY THOMAS DO Location:[facility] Appointment Type:PC OV Future Scheduled Tests Laboratory* Hepatic Function Panel 04/13/22 Radiology* US Renal 03/09/22 [facility] Evaluation + Plan note Future Appointments Appointment Date:04/15/2022 07:30:00 AM Scheduled Provider: Location:[facility] Appointment Type:US Renal Appointment Date:04/16/2022 04:30:00 PM Scheduled Provider:LARRY THOMAS DO Location:[facility] Appointment Type:PC OV Appointment Date:05/28/2022 10:00:00 AM Scheduled Provider:ANISA GOMEZ MD Location:[facility] Appointment Type:BS PIPE FITTER HELPER Future Scheduled Tests Radiology* US Renal 04/15/22 [facility] Evaluation + Plan note Future Appointments Appointment Date:04/16/2022 04:30:00 PM Scheduled Provider:LARRY THOMAS DO Location:[facility] Appointment Type:PC OV Appointment Date:05/28/2022 10:00:00 AM Scheduled Provider:ANISA GOMEZ MD Location:[facility] Appointment Type:BS PIPE FITTER HELPER [facility] Evaluation + Plan note Future Appointments Appointment Date:07/16/2022 03:30:00 PM Scheduled Provider:ANISA GOMEZ MD Location:[facility] Appointment Type:BS OV Post Op Appointment Date:09/11/2022 11:00:00 AM Scheduled Provider:LARRY THOMAS DO Location:[facility] Appointment Type:PC Wellness Medicare [facility] Evaluation + Plan note Future Appointments Appointment Date:12/14/2022 10:00:00 AM Scheduled Provider: Location:[facility] Appointment Type:BD Bone Density DEXA Axial Skeleton Appointment Date:03/16/2023 10:00:00 AM Scheduled Provider:LARRY THOMAS DO Location:[facility] Appointment Type:PC OV Future Scheduled Tests Radiology* BD Bone Density DEXA Axial Skeleton 12/14/22 [facility] Evaluation + Plan note Future Appointments Appointment Date:06/15/2023 10:30:00 AM Scheduled Provider:LARRY THOMAS DO Location:[facility] Appointment Type:PC OV Diagnostic Tests Pending * Methylmalonic Acid, Serum 04/07/23 [facility] Evaluation + Plan note Future Appointments Appointment Date:06/15/2023 10:30:00 AM Scheduled Provider:LARRY THOMAS DO Location:[facility] Appointment Type:PC OV [facility] Evaluation + Plan note Future Appointments Appointment Date:12/15/2023 10:00:00 AM Scheduled Provider:LARRY THOMAS DO Location:[facility] Appointment Type:PC [facility] Evaluation + Plan note Future Appointments Appointment Date:12/29/2023 01:30:00 PM Scheduled Provider:LARRY THOMAS DO Location:[facility] Appointment Type:PC OV Diagnostic Tests Pending * Vitamin B12 Level 12/15/23 * Folate Level 12/15/23 Future Scheduled Tests Laboratory* Calcium Level Ionized 12/15/23 * Urine Culture 12/15/23 Radiology* XR Spine Lumbar W/Obliques 4 Views 12/15/23 [facility] Evaluation + Plan note Future Appointments Appointment Date:12/29/2023 01:30:00 PM Scheduled Provider:LARRY THOMAS DO Location:[facility] Appointment Type:PC OV Future Scheduled Tests Laboratory* Calcium Level Ionized 12/15/23 Radiology* XR Chest 2 Views (PA & Lateral) 12/19/23 * XR Spine Lumbar W/Obliques 4 Views 12/15/23 [facility] Evaluation + Plan note Future Appointments Appointment Date:12/29/2023 01:30:00 PM Scheduled Provider:LARRY THOMAS DO Location:[facility] Appointment Type:PC OV Future Scheduled Tests Laboratory* Calcium Level Ionized 12/15/23 [facility] Evaluation + Plan note Future Appointments Appointment Date:02/16/2024 09:30:00 AM Scheduled Provider:LARRY THOMAS DO Location:[facility] Appointment Type:PC OV Future Scheduled Tests Radiology* US Bladder 12/29/23 [facility] Evaluation + Plan note Future Appointments Appointment Date:02/16/2024 09:30:00 AM Scheduled Provider:LARRY THOMAS DO Location:[facility] Appointment Type:PC [facility] Evaluation note* Diagnosis Abnormal ultrasound of breast Other (abnormal) findings on radiological examination of breast History of left breast cancer [facility] noteNo assessment information availableWHolzer Hospital Work Phone: Hospital course Narrative No data available for this section [facility] Discharge instructions No data available for this section [facility] Dis[facility] instructions Additional Instructions She has a superior pubic ramus fracture which is a pelvis fracture. These are not treated with surgery. They generally heal over weeks to months. She can do activity as tolerated. She may walk or be in a wheelchair or obviously lying in bed. Tylenol for pain. [place] as needed for pain also.[facility] Work Phone: Progress note No data available for this section [facility] Reason for referral (narrative)No reason for referral information availableWHolzer Hospital Work Phone: Chief Complaint Chief Complaint Description [...] Visit Chief Complaint Admit Date 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 February 24, 2024 3 :20pm [facility] February 28, 2024 5:00am ADMISSION EXAM February 29, 2024 1 1:54am [facility] March 27 5:00am LABWORK April 03, 2024 5:00am NEW CONCERN April 03, 2024 2:22pm LABWORK May 01, 2024 5:0 0am Chief Complaint Admit Date 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 February 24, 2024 3 :20pm [facility] February 28, 2024 5:00am ADMISSION EXAM February 29, 2024 1 1:54am [facility] March 27 5:00am LABWORK April 03, 2024 5:00am NEW CONCERN April 03, 2024 2:22pm MONTHLY EXAM April 11, 2024 5:02 pm NEW CONCERN April 26, 2024 6:3 9pm LABWORK May 01, 2024 5:0 0am [facility] May 15, 2024 4: 00am Chief Complaint Admit Date 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 February 24, 2024 3 :20pm [facility] February 28, 2024 5:00am ADMISSION EXAM February 29, 2024 1 1:54am [facility] March 27 5:00am LABWORK April 03, 2024 5:00am NEW CONCERN April 03, 2024 2:22pm MONTHLY EXAM April 11, 2024 5:02 pm NEW CONCERN April 26, 2024 6:3 9pm LABWORK May 01, 2024 5:0 0am [facility] May 15, 2024 4: 00am LABWORK May 29, 2024 5:0 0am Chief Complaint Admit Date 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 February 24, 2024 3 :20pm [facility] February 28, 2024 5:00am ADMISSION EXAM February 29, 2024 1 1:54am [facility] March 27 5:00am LABWORK April 03, 2024 5:00am NEW CONCERN April 03, 2024 2:22pm MONTHLY EXAM April 11, 2024 5:02 pm NEW CONCERN April 26, 2024 6:3 9pm LABWORK May 01, 2024 5:0 0am [facility] May 15, 2024 4: 00am [facility] May 24, 2024 5 :00am LABWORK May 29, 2024 5:0 0am Chief Complaint Admit Date [facility] March 27 5:00am LABWORK April 03, 2024 5:00am NEW CONCERN April 03, 2024 2:22pm MONTHLY EXAM April 11, 2024 5:02 pm NEW CONCERN April 26, 2024 6:3 9pm LABWORK May 01, 2024 5:0 0am [facility] May 15, 2024 4: 00am [facility] May 24, 2024 5 :00am LABWORK May 29, 2024 5:0 0am [facility] June 26, 2024 4:0 0am fall July 24, 2024 1:23 am Chief Complaint Admit Date [facility] WORK March 27 5:00am LABWORK April 03, 2024 5:00am NEW CONCERN April 03, 2024 2:22pm MONTHLY EXAM April 11, 2024 5:02 pm NEW CONCERN April 26, 2024 6:3 9pm LABWORK May 01, 2024 5:0 0am [facility] May 15, 2024 4: 00am [facility] May 24, 2024 5 :00am LABWORK May 29, 2024 5:0 0am [facility] June 26, 2024 4:0 0am Chief Complaint Admit Date LABWORK April 03, 2024 5:00am NEW CONCERN April 03, 2024 2:22pm MONTHLY EXAM April 11, 2024 5:02 pm NEW CONCERN April 26, 2024 6:3 9pm LABWORK May 01, 2024 5:0 0am Monthly Exam May 12, 2024 2:03 pm [facility] May 15, 2024 4: 00am [facility] May 24, 2024 5 :00am LABWORK May 29, 2024 5:0 0am [facility] June 26, 2024 4:0 0am fall July 24, 2024 1:23 am Chief Complaint Admit Date LABWORK April 03, 2024 5:00am NEW CONCERN April 03, 2024 2:22pm MONTHLY EXAM April 11, 2024 5:02 pm NEW CONCERN April 26, 2024 6:3 9pm LABWORK May 01, 2024 5:0 0am Monthly Exam May 12, 2024 2:03 pm [facility] May 15, 2024 4: 00am New Concern May 23, 2024 5:0 2pm [facility] May 24, 2024 5 :00am LABWORK May 29, 2024 5:0 0am [facility] June 26, 2024 4:0 0am fall July 24, 2024 1:23 am Additional Source Comments Reason for Visit (unrecogniz ed section and content) Reason For Visit Description Follow-up by complaint Preliminary reason f or visit data, not yet signed by the author as of lower back pain Reason Comments Consult Left breast consult Reason Comments Request for medical records INFORMATION SOURCE (unrecogn ized section and content) DATE CREATED AUTHOR 03/11/2018 [facility] DATE CREATED AUTHOR AUTHOR'S ORGANIZ ATION 06/04/2022 [facility] [facility] DATE CREATED AUTHOR AUTHOR'S ORGANIZ ATION 07/09/2023 [facility] ([place]) DATE CREATED AUTHOR AUTHOR'S ORGANIZ ATION 02/24/2024 [facility] DATE CREATED AUTHOR AUTHOR'S ORGANIZ ATION 03/28/2024 [facility] DATE CREATED AUTHOR AUTHOR'S ORGANIZ ATION 08/09/2024 [facility] Care Team (unrecognized sect ion and content) Care Team Personnel Name: ALANNA WRIGHT DO Position: P4 Physician - Primary Care Member Role: Primary Care Physician Address: Address: [address] [place] [address]- [place] Name: Venkata Alegria RN Position: ED RN Member Role: ED RN Name: BLANCA ARRIETA DO Position: P4 ED Physician II Member Role: ED Physician Address: Address: [address] [facility] [facility] [place] [address]- [place] Care Team Related Persons Name: ZARA DALTON Address: Home [address], [place] [phone] [place] Care Team Personnel Name: ALANNA WRIGHT DO Position: P4 Physician - Primary Care Member Role: Primary Care Physician Address: Address: [address] [place] [address]- Name: Danette Busch RN Position: RN Member Role: RN Name: INES DENNIS MD Position: ED Physician Member Role: Attending Physician Address: Address: [facility] [place], [place] [id number]- [place] Care Team Related Persons Name: ZARA DALTON Address: Home [address], [place] [phone] [place] Care Team Personnel Name: ALANNA WRIGHT DO Position: P4 Physician - Primary Care Member Role: Primary Care Physician Address: Address: [address] [place] [address]- Care Team Related Persons Name: ZARA DALTON Address: Home [address], [place] [phone] [place] Care Team Personnel Name: LARRY THOMAS DO Position: P4 Physician - Primary Care Member Role: Primary Care Physician Address: Address: [address] [place] [address]- [place] Care Team Related Persons Name: ZARA DALTON Address: Home [address], [place] [phone] [place] Care Team Personnel Name: LARRY THOMAS DO Position: P4 Physician - Primary Care Member Role: Primary Care Physician Address: Address: [address] [place] [address]- [place] Care Team Related Persons Name: ZARA DALTON Address: Home [address], [place] [phone] Care Team Personnel Name: LARRY THOMAS DO Position: P4 Physician - Primary Care Member Role: Primary Care Physician Address: Address: [address] [place] [address] Care Team Related Persons Name: ZARA DALTON Address: [address] [phone] Care Team Personnel Name: LARRY THOMAS DO Position: P4 Physician - Primary Care Member Role: Primary Care Physician Address: Address: [address] [place] [address] Care Team Related Persons Name: ZARA DALTON Address: [address] [phone] Care Team Personnel Name: LARRY THOMAS DO Position: P4 Physician - Primary Care Member Role: Primary Care Physician Address: Address: [address] [place] [address] Care Team Related Persons Name: ZARA DALTON Address: [address] [phone] Source Comments (unrecognize d section and content) In the event this informatio n is protected by the Federal Confidentiality of Alcohol and Drug Abuse Patient Records regulations: The Federal rules restrict any use of the information to criminally investigate or prosecute any alcohol or drug abuse patient.[facility] the event this information is protected by the Federal Confidentiality of Alcohol and Drug Abuse Patient Records regulations: The Federal rules restrict any use of the information to criminally investigate or prosecute any alcohol or drug abuse patient.[facility] Care Teams (unrecognized sec tion and content) Team Status: Active Member Role Status Dates Dr. Jairon Medel MD Primary Care Provider Active Team Status: Active Member Role Status Dates [...] 2024 End: April 03, 2024 Jane Barth NP, PIPE FITTER HELPER-C Attending Provider Active Start: April 03, 2024 [...] 2024 End: April 26, 2024 Jane Barth NP, PIPE FITTER HELPER-C Attending Provider Active Start: April 26, 2024 End: April 26, 2024 Team Status: Inactive Member Role Status Dates Dr. Warner Leos Jr., MD Primary Care Provider Active Start: May 01, 2024 End: May 01, 2024 Jairon TREVIÑO MD Attending Provider Active Start: May 01, 2024 End: May 01, 2024 Team Status: Inactive Member Role Status Dates Dr. Warner Leos Jr., MD Primary Care Provider Active Start: May 15, 2024 End: May 15, 2024 Jairon TREVIÑO MD Attending Provider Active Start: May 15, 2024 End: May 15, 2024 Jairon TREVIÑO MD Referring Provider Active Start: May 15, 2024 End: May 15, 2024 Team Status: Inactive Member Role Status Dates Dr. Warner Leos Jr., MD Primary Care Provider Active Start: May 24, 2024 End: May 24, 2024 Jairon TREVIÑO MD Attending Provider Active Start: May 24, 2024 End: May 24, 2024 Team Status: Inactive Member Role Status Dates Dr. Warner Leos Jr., MD Primary Care Provider Active Start: May 29, 2024 End: May 29, 2024 Jairon TREVIÑO MD Attending Provider Active Start: May 29, 2024 End: May 29, 2024 Team Status: Inactive Member Role Status Dates Dr. Warner Leos Jr., MD Primary Care Provider Active Start: June 26, 2024 End: June 26, 2024 Jairon TREVIÑO MD Attending Provider Active Start: June 26, 2024 End: June 26, 2024 Jairon TREVIÑO MD Referring Provider Active Start: June 26, 2024 End: June 26, 2024 Team Status: Inactive Member Role Status Dates Dr. Jairon Medel MD Primary Care Provider Active Start: July 24, 2024 End: July 24, 2024 Dr. Jean Claude Harry MD Emergency Provider Active S tart: July 24, 2024 End: July 24, 2024 Dog Races Manager Relationship Specialty Start Date End Date Larry Thomas [address] [address] PCP - General Family Medicine 03/30/22 Lachelle Cervantes MD, [facility] [address] [place], [place] [phone] Physician Radiation Oncology 05/11/17 Kesha Davidson, RN Specialty Hat Model Oncology 07/28/17 Dog Races Manager Relationship Specialty Start Date End Date Kelvin LarryDO althea [address] [place] [id number] PCP - General Family Medicine 03/30/22 Lachelle Cervantes MD, MD Colin [address] [place], [place] [phone] Physician Radiation Oncology 05/11/17 Kesha Davidson RN Specialty Hat Model Oncology 07/28/17 Team Status: Active Member Role Status Dates Dr. Warner Leos Jr., MD Family Provider Active Dr. Warner Leos Jr., MD Primary Care Provider Active Team Status: Inactive Member Role Status Dates Dr. Warner Leos Jr., MD Primary Care Provider Active Start: February 24, 2024 End: February 24, 2024 Jane Barth PIPE FITTER HELPER PIPE FITTER HELPER-C Attending Provider Active Start: February 24, 2024 [...] Active Start: May 15, 2024 Team Status: Active Member [...] Status: Inactive Member Role Status Dates Dr. Jairon Medel MD Primary Care Provider Active Start: May 12, 2024 End: May 12, 2024 Jane Barth PIPE FITTER HELPER PIPE FITTER HELPER-C Attending Provider Active Start: May 12, 2024 End: May 12, 2024 Team Status: Inactive Member Role Status Dates Dr. Jairon Medel MD Primary Care Provider Active Start: May 23, 2024 End: May 23, 2024 Jane Barth NP, GABBY-C Attending Provider Active Start: May 23, 2024 End: May 23, 2024 Goals (unrecognized section and content) Goals [...] BE BASED ON THE PRIMARY CLINICAL RECORDS. [facility] [employer] provides no warranty or guarantee of the accuracy or completeness of information in this document.
[2024-08-21 09:08] LABS: Anion Gap 10 (5-15); BUN 18 mg/dL (4-19); BUN/Creat Ratio 21.2 RATIO (10-20); Calcium,Total 9.4 mg/dL (7.6-11.0); Carbon Dioxide 24.4 mmol/L (21.0-32.0); Chloride 108 mmol/L (98-108); Glucose 95 mg/dL (70-99); Potassium 4.4 mmol/L (3.3-5.1)
[2024-08-21 12:03] LABS: Hematocrit 31.9 % (37-47); Hemoglobin 10.2 g/dL (12.0-15.0); Immature Granulocytes Count 0.010 X10^3/uL (0.0-0.0); Mean Corp Hgb Conc 32.0 g/dL (32-36); Mean Corpuscular Volume 91.7 fL (81-99); Mean Platelet Vol. 10.6 fl (6.2-12.0); NRBC Flagged by Analyzer 0 % (0-5); Platelet Count 232 K/mm3 (150-450); RBC Distribution Width CV 14.2 % (11.6-14.6); RBC Distribution Width SD 47.2 fl (35.1-43.9); Red Blood Count 3.48 M/mm3 (4.2-5.4); White Blood Count 6.8 K/mm3 (4.4-11.0)
== END ==
LOC: OLS.WHLCAR 05:00
PROVIDERS: PCP Internal Medicine; Visit Provider Internal Medicine
DX: G30.9 Alzheimer's disease, unspecified (principal); F02.811 Dementia in other diseases classified elsewhere, unspecified severity, with agitation; I12.9 Hypertensive chronic kidney disease with stage 1 through stage 4 chronic kidney disease, or unspecified chronic kidney disease; N18.9 Chronic kidney disease, unspecified
CPT/HCPCS: 36415; 80048; 85025

== ENCOUNTER → 2024-08-28 | Outpatient (REF) | payer MEDICARE, OTHER, SELFPAY ==
--- OUTSIDE RECORDS SUMMARY | 2024-08-28 04:56 | XMS RPT_ITS | CCD ---
Author Organization [facility] Care Team Providers Care Director Food Safety Name Role Phone Hardik PARKER, Carla Jeter Unavailable PAULA ALANIZ Referring Unavailable PAULA ALANIZ Referring Unavailable ALANNA WRIGHT DO Primary Care Physician MICAHAR DO, DR GAO Primary Care Physician [phone] Billy PARKER MD, Dabrandenung Unavailable [phone] Stuart RN, Kesha Unavailable Unavailable Micahar , [...] ROMAR DO, DR GAO Primary Care Unavailable ALKOL COBOL PROGRAMMER-SENIOR CONSUMER INSIGHTS CONSULTANT, ELDA Admitting Unavail able ESPERANZA HOOVER MD Attending Unavailable ROMAR DO, DR GAO Primary Care Unavailable ROMAR DO, DR GAO Attending Unavailable ROMAR DO, DR GAO Primary Care Unavailable ROMAR DO, DR GAO Attending Unavailable ROMAR DO, DR GAO Primary Care Unavailable ROMAR DO, DR GAO Primary Care Unavailable ROMAR DO, DR GAO Attending Unavailable Deric PARKER, Dr. Hylton Primary Care Provider Lary ADDING MACHINE OPERATOR-C, Jane Attending Provider Jairon Medel MD Attending Provider Unavailsteffany Medel MD, Dr. De La O Attending Provider Jairon Medel MD Referring Provider Unavailsteffany Leos MD, Dr. Hylton Primary Care Provider Jairon Medel MD Attending Provider Unavailsteffany Barth ADDING MACHINE OPERATOR-C, Jane Attending Provider Gianfranco PARKER, Dr. De La O Attending Provider Dr. Jairon Medel MD Primary Care Provider Dr. Jean Claude Harry MD Emergency Provider Deric PARKER, Dr. Hylton Primary Care Provider Jairon Medel MD Attending Provider Unavailsteffany Medel MD, Dr. De La O Primary Care Provider Dr. Warner Leos MD Primary Care Provider Lary ADDING MACHINE OPERATOR-C, Jane Attending Provider Jairon Medel MD Attending Provider Unavailsteffany Medel MD, Dr. Efewongbe Attending Provider Piero PARKER, Dr. Silverio Attending Provider Oleghe, Efewongbe Primary Care Unavailable Oleghe OLS, Efewongbe Attending Unavailthea Leos Jr., Warner Primary Care Unavailable Oleghe OLS, Efewongbe Referring Unavailabl e Oleghe OLS, Efewongbe Attending Unavailabl e Oleghe, Efewongbe Attending Unavailable Deric Rodriguez, Warner Primary Care Unavailable Deric Rodriguez, Warner Primary Care Unavailable Lary ADDING MACHINE OPERATOR, Jane Attending Unavailable Deric Rodriguez, Warner Primary Care Unavailable Oleghe, Efewongbe Attending Unavailable Deric Rodriguez, Warner Primary Care Unavailable Tickton ADDING MACHINE OPERATOR, Jane Attending Unavailable Tickton ADDING MACHINE OPERATOR, Jane Attending Unavailable Oleghe, Efewongbe Primary Care Unavailable Oleghe, Efewongbe Primary Care Unavailable Tickton ADDING MACHINE OPERATOR, Jane Attending Unavailable Oleghe, Efewongbe Primary Care Unavailable Oleghe, Efewongbe Attending Unavailable Deric Rodriguez, Warner Primary Care Unavailable Tickton ADDING MACHINE OPERATOR, Jane Attending Unavailable Deric Rodriguez, Warner Primary Care Unavailable Oleghe OLS, Efewongbe Attending Unavailabl e Oleghe, Efewongbe Primary Care Unavailable Jean Claude Harry Attending Unavailable Deric Rodriguez, Warner Primary Care Unavailable Oleghe OLS, Efewongbe Attending Unavailthea Leos Jr., Warner Primary Care Unavailable Oleghe OLS, Efewongbe Attending Unavailthea Leos Jr., Warner Primary Care Unavailable Oleghe OLS, Efewongbe Referring Unavailabl e Oleghe OLS, Efewongbe Attending Unavailthea Leos Jr., Warner Primary Care Unavailable Oleghe OLS, Efewongbe Attending Unavailthea Leos Jr., Warner Primary Care Unavailable Oleghe OLS, Efewongbe Attending Unavailthea Leos Jr., Warner Primary Care Unavailable Oleghe OLS, Efewongbe Attending UnavailDr. Warner Elizabeth MD Primary Care Provider Lary PIERRE-CJane Attending Provider Allergies Allergy Classification Reported Allergen(s) Allergy Type Date of Onset Reaction(s) Facility (1 source) Sulfacetamide Drug Allergy 4 rash [facility] Work Phone: (10 sources) Sulfonamides (Antibiotic); Translations: [SULFA (SULFONAMIDE ANTIBIOTICS)] Propensity to adverse reactions to drug (disorder) 8 Intolerance [facility] Other [place] Repository Medications Current Medications Medication Drug Class(es) Dates Sig (Normalized) Sig (Original) acetaminophen 500 mg oral tablet (16 sources) Start: 06-27-2014 take 1 tablet by mouth once daily as needed for pain Acetaminophen (Tylenol Extra Strength) 500 MG tablet Active 500 mg PO DAILY as needed for fever or pain April 20, 2017 12:00am alendronic acid 70 mg oral tablet (15 sources) Bisphosphonate Start: 07-24-2024 take 1 tablet [...] taking., # 12 tab(s), 1 Refill(s), Pharmacy: [facility]/pharmacy #[id number], 155, cm, 12/15/23 10:32:00 EST, [...] taking., # 12 tab(s), 1 Refill(s), Pharmacy: [facility]/pharmacy #[id number], 153.5, cm, 06/15/23 10:26:00 EDT, Height, kg, 06/15/23 10:26:00 EDT, Dosing Weight Start Date: 06/15/23 Stop Date: 11/30/23 Status: Ordered anastrozole 1 mg oral tablet (20 sources) Aromatase Inhibitor Start: 09-28-2023 take 1 tablet by mouth once daily in the evening anastrozole 1 mg oral tablet 1 tab(s), Oral, qPM, # 90 tab(s), 0 Refill(s), [id number] 153.5, cm, 06/15/23 10:26:00 EDT, Height, kg, 06/15/23 10:26:00 EDT, Dosing Weight Start Date: 09/28/23 Status: Ordered Start: 03-16-2023 take 1 tablet by charles th once daily in the evening anastrozole 1 mg oral tablet 1 tab(s), Oral, qPM, # 90 tab(s), 1 Refill(s), [id number] 155.2, cm, 03/16/23 9:59:00 EST, Height, kg, 03/16/23 9:59:00 EST, Dosing Weight Start Date: 03/16/23 Status: Ordered Start: 09-30-2022 take 1 tablet by charles th once daily in the evening anastrozole 1 mg oral tablet 1 tab(s), Oral, qPM, # 90 tab(s), 1 Refill(s), [id number] 156.5, cm, 09/11/22 11:11:00 EDT, Height, kg, 09/11/22 11:11:00 EDT, Dosing Weight Start Date: 09/30/22 Status: Ordered Start: 11-21-2021 take 1 tablet by charles th once daily in the evening anastrozole 1 mg oral tablet 1 tab(s), Oral, qPM, # 90 tab(s), 1 Refill(s), Pharmacy: [facility] STORE [id number], 154.5, cm, 11/18/21 13:32:00 EDT, Height, kg, 11/18/21 13:32:00 EDT, Dosing Weight Start Date: 11/21/21 Status: Ordered Start: 03-20-2020 End: 04-05-2021 take 1 tablet by mouth once daily anastrozole 1 mg oral tablet 1 tab(s), Oral, qDay, # 90 tab(s), 1 Refill(s), Pharmacy: [facility] STORE [id number], 155, cm, 11/04/20 8:28:00 EDT, Height, kg, 11/11/20 8:26:00 EDT, Dosing Weight Start Date: 04/17/21 Status: Ordered Start: 01-12-2018 ARIMIDEX 1 MG TABS 1 tablet daily ANASTROZOLE [id number] Vidya Babin LPN Comment on above: TAKE 1 TABLET BY CHARLES TH EVERY DAY aspirin 81 mg delayed release oral tablet (20 sources) Platelet Aggregation Inhibitor, Nonsteroidal Anti-inflammatory Drug Start: 10-05-2023 End: 04-02-2024 aspirin 81 mg oral delayed release tablet Dose : 81 mg = 1 tab(s), Oral, qAM, do not crush or chew, # 90 tab(s), 1 Refill(s), [id number] 153.5, cm, 06/15/23 10:26:00 EDT, Height, kg, 06/15/23 10:26:00 EDT, Dosing Weight Start Date: 10/05/23 Stop Date: 04/02/24 Status: Ordered Start: 03-05-2022 End: 05-20-2023 aspirin 81 mg oral delayed r elease tablet Dose : 81 mg = 1 tab(s), Oral, qAM, do not crush or chew, # 90 tab(s), 3 Refill(s), [id number], 154.3, cm, 04/16/22 16:12:00 [...] qPM, # 100 tab(s), 1 Refill(s), Pharmacy: [id number], 155, cm, 12/15/23 10:32:00 EST, Height, kg, 12/15/23 10:26:00 EST, Dosing Weight Start Date: 12/15/23 Stop Date: 07/02/24 Status: Ordered Quantity: 100.0 Unit: tab(s) Repeat number: 2 Start: 09-13-2023 End: 12-12-2023 atorvastatin 20 mg oral tabl et Dose : 20 mg = 1 tab(s), Oral, qPM, # 90 tab(s), 0 Refill(s), [id number] 153.5, cm, 06/15/23 10:26:00 EDT, Height, kg, 06/15/23 10:26:00 EDT, Dosing Weight Start Date: 09/13/23 Stop Date: 12/12/23 Status: Ordered Start: 01-29-2023 End: 07-28-2023 atorvastatin 20 mg oral tabl et Dose : 20 mg = 1 tab(s), Oral, qPM, # 90 tab(s), 1 Refill(s), [id number] 156.5, cm, 09/11/22 11:11:00 EDT, Height, kg, 09/11/22 11:11:00 EDT, Dosing Weight Start Date: 01/29/23 Stop Date: 07/28/23 Status: Ordered Start: 03-09-2022 End: 11-21-2022 atorvastatin 20 mg oral tabl et Dose : 20 mg = 1 tab(s), Oral, qPM, # 90 tab(s), 1 Refill(s), [id number] 154.3, cm, 04/16/22 16:12:00 EST, Height, kg, 04/16/22 16:12:00 EST, Dosing Weight Start Date: 05/25/22 Stop Date: 11/21/22 Status: Ordered Start: 08-22-2021 take 0.5 tablet by m outh once daily atorvastatin 20 mg oral tablet 0.5 tab(s), Oral, qDay, # 45 tab(s), 1 Refill(s), Pharmacy: [facility] STORE [id number], 155, cm, 05/05/21 8:51:00 EDT, Height, kg, 05/05/21 8:51:00 EDT, Dosing Weight Start Date: 08/22/21 Status: Ordered Start: 11-06-2020 take 0.5 tablet by m outh once daily atorvastatin 20 mg oral tablet See Instructions, TAKE 1/2 TABLET EVERY DAY, # 45 tab(s), 1 Refill(s), Pharmacy: [facility]/pharmacy #[id number], 155, cm, 11/04/20 8:28:00 EDT, Height, kg, 11/04/20 8:28:00 EDT, Dosing Weight Start Date: 11/06/20 Status: Ordered Start: 04-20-2017 take 2 tablets by mo ut at bedtime Atorvastatin 10 MG tablet Active 20 mg PO AT BEDTIME April 20, 2017 12:00am Start: 10-27-2013 take 1 tablet by charles at bedtime Atorvastatin 10 MG tablet Active 10 mg PO AT BEDTIME April 20, 2017 12:00am Comment on above: Take 10 mg by mouth once daily. busPIRone hydrochloride 5 mg oral tablet (5 sources) Start: 07-24-2024 take 1 tablet by mouth twice daily Buspirone 5 mg tablet Active 5 mg PO TWICE A DAY July 24, 2024 12:00am calcium carbonate 1500 mg / cholecalciferol 800 unt oral tablet (10 sources) Vitamin D Start: 04-20-2017 Calcium Carbonate-Vitamin [...] qAM, # 90 cap(s), 0 Refill(s), Pharmacy: [facility]/pharmacy #[id number], 156.2, cm, 07/01/22 6:28:00 EDT, Height, kg, 07/01/22 6:28:00 EDT, Dosing Weight Start Date: 08/10/22 Status: Ordered Start: 12-07-2016 take 1 capsule by mo [facility] once daily in the morning celecoxib 100 mg oral capsule 1 cap(s), Oral, qAM, # 90 cap(s), 1 Refill(s), Pharmacy: [facility] STORE [id number], 154.3, cm, 04/16/22 16:12:00 EST, Height, kg, 04/16/22 16:12:00 EST, Dosing Weight Start Date: 05/21/22 Status: Ordered Start: 10-27-2013 CELEBREX 100 M G CAPS 1-2 capsules weekly as needed CELECOXIB [id number] Vidya Babin LPN Comment on above: Take 100 mg by mouth once daily. ciclopirox 80 mg/ml topical solution (6 sources) Start: 03-05-2022 End: 01-06-2024 ciclopirox 8% topical solution Apply 1 angelica, Topical, Daily, apply to affected toenails and surrounding area once daily, remove with alcohol every 7 days prior to reapplication, Apply to: toenails, X 48 week(s), # 6.6 mL, 1 Refill(s), [id number], 154.3, cm, 03/05/22 9:44:00 EST, Height, 75.6 Start Date: 03/05/22 Stop Date: 01/06/24 Status: Ordered Clobetasol (3 sources) Corticosteroid Start: 01-20-2021 clobetasol 0.05% topical ointment See Instructions, APPLY TO AFFECTED AREA TWICE A DAY, # 15 gram(s), 1 Refill(s), Pharmacy: [id number], 155, cm, 11/04/20 8:28:00 EDT, Height, 81.2, kg, 11/11/20 8:26:00 EDT, Dosing Weight Start Date: 01/20/21 Status: Ordered Start: 07-30-2020 Temovate 0.05% topical ointment Apply 1 angelica, Topical, BID, # 15 gram(s), 0 Refill(s), [id number], Ointment, 155, cm, 07/23/20 8:15:00 EDT, [...] qHS, # 90 tab(s), 1 Refill(s), Pharmacy: [facility]/pharmacy #[id number], 156.5, cm, 09/11/22 11:11:00 EDT, [...] qHS, # 90 tab(s), 1 Refill(s), Pharmacy: [facility] ST[facility] [id number], 155, cm, 11/04/20 8:28:00 EDT, Height, kg, [...] Status: Ordered escitalopram 10 mg oral tablet (5 sources) Serotonin Reuptake Inhibitor Start: 07-24-2024 take 1 tablet by mouth once daily Escitalopram Oxalate 10 mg tablet Active 10 mg PO DAILY July 24, 2024 12:00am ferrous sulfate 325 mg oral tablet (11 sources) Start: 07-24-2024 Ferrous Sulfat e 325 mg (65 mg iron) tablet Active 325 mg PO MOWEFR July 24, 2024 12:00am Start: 12-19-2023 End: 03-18-2024 ferrous sulfate 325 mg (65 m g elemental iron) oral tablet Dose : 325 mg = 1 tab(s), Oral, Mon/Wed/Wed, may take with food to minimize abdominal discomfort, # 39 tab(s), 0 Refill(s), Pharmacy: [facility]/pharmacy #[id number], 155, cm, 12/15/23 10:32:00 EST, Height, kg, 12/15/23 10:26:00 EST, Dosing Weight Start Date: 12/19/23 Stop Date: 03/18/24 Status: Ordered Quantity: 39.0 Unit: tab(s) Repeat number: 1 furosemide 20 mg oral tablet (5 sources) Loop Diuretic Start: 07-24-2024 take 1 tablet by mouth once daily Furosemide (Lasix) 20 mg tablet Active 20 mg PO DAILY July 24, 2024 12:00am Lidocaine (2 sources) Antiarrhythmic, Amide Local Anesthetic Start: 07-23-2020 lidocaine 4% topical cream Apply 1 angelica, Topical, TID, # 5 gram(s), 0 Refill(s), Pharmacy: [facility]/pharmacy #[id number], Cream, 155, cm, 07/23/20 8:15:00 EDT, Height, 85.2, kg, 07/23/20 8:15:00 EDT, Dosing Weight Start Date: 07/23/20 Status: Ordered lisinopril 20 mg oral tablet (14 sources) Angiotensin Converting Enzyme Inhibitor Start: 03-16-2023 take 1 tablet by mouth once daily in the morning lisinopril 20 mg oral tablet 1 tab(s), Oral, qAM, # 90 tab(s), 1 Refill(s), Pharmacy: [facility]/pharmacy #[id number], 155.2, cm, 03/16/23 9:59:00 EST, Height, kg, 03/16/23 9:59:00 EST, Dosing Weight Start Date: 03/16/23 Status: Ordered Start: 10-15-2022 take 1 tablet by charles th once daily in the morning lisinopril 20 mg oral tablet 1 tab(s), Oral, qAM, # 90 tab(s), 1 Refill(s), [id number] 156.5, cm, 09/11/22 11:11:00 EDT, Height, kg, 09/11/22 11:11:00 EDT, Dosing Weight Start Date: 10/15/22 Status: Ordered Start: 04-13-2022 take 1 tablet by charles th once daily in the morning lisinopril 20 mg oral tablet 1 tab(s), Oral, qAM, # 90 tab(s), 1 Refill(s), [id number], 154.3, cm, 03/17/22 9:37:00 EST, Height, kg, 03/17/22 9:37:00 EST, Dosing Weight Start Date: 04/13/22 Status: Ordered Start: 09-02-2021 take 1 tablet by charles th once daily lisinopril 20 mg oral tablet 1 tab(s), Oral, qDay, # 90 tab(s), 1 Refill(s), Pharmacy: [facility] STORE [id number], 155, cm, 05/05/21 8:51:00 EDT, Height, kg, 05/05/21 8:51:00 EDT, Dosing Weight Start Date: 09/02/21 Status: Ordered Start: 10-22-2020 take 1 tablet by charles th once daily lisinopril 20 mg oral tablet See Instructions, TAKE 1 TABLET BY MOUTH EVERY DAY, # 90 tab(s), 1 Refill(s), Pharmacy: [facility] STORE [id number], 155, cm, 07/23/20 8:15:00 EDT, Height, kg, 07/30/20 8:40:00 EDT, Dosing Weight Start Date: 10/22/20 Status: Ordered losartan potassium 50 mg oral tablet (20 sources) Angiotensin 2 Receptor Aniyah Start: 10-27-2013 End: 07-02-2024 take 1 tablet by mouth once daily Losartan (Cozaar) 50 MG tablet Active 50 mg PO DAILY April 20, 2017 12:00am 24 hr memantine hydrochloride 28 mg extended release oral capsule (20 sources) S-naxvxd-E-asparta te Receptor Antagonist Start: 07-24-2024 take 1 [...] qAM, # 90 tab(s), 1 Refill(s), [id number], 156.5, cm, 09/11/22 11:11:00 EDT, Height, kg, 09/11/22 11:11:00 EDT, Dosing Weight Start Date: 01/29/23 Status: Ordered Start: 05-25-2022 take 1 tablet by charles once daily in the morning memantine 5 mg oral tablet 1 tab(s), Oral, qAM, # 90 tab(s), 1 Refill(s), [id number], 154.3, cm, 04/16/22 16:12:00 EST, Height, kg, 04/16/22 16:12:00 EST, Dosing Weight Start Date: 05/25/22 Status: Ordered Start: 07-14-2021 take 1 tablet by charles th once daily memantine 5 mg oral tablet 1 tab(s), Oral, qDay, # 90 tab(s), 1 Refill(s), Pharmacy: [facility] STORE [id number], 155, cm, 05/05/21 8:51:00 EDT, Height, kg, 05/05/21 8:51:00 EDT, Dosing Weight Start Date: 07/14/21 Status: Ordered Start: 04-15-2021 take 1 tablet by charles th once daily memantine 5 mg oral tablet 1 tab(s), Oral, qDay, # 90 tab(s), 0 Refill(s), Pharmacy: [facility] STORE [id number], 155, cm, 11/04/20 8:28:00 EDT, Height, kg, 11/11/20 8:26:00 EDT, Dosing Weight Start Date: 04/15/21 Status: Ordered Start: 10-17-2020 take 1 tablet by charles th once daily memantine 5 mg oral tablet See Instructions, TAKE 1 TABLET BY MOUTH EVERY DAY, # 90 tab(s), 0 Refill(s), Pharmacy: [facility] ST[facility] [id number], 155, cm, 07/23/20 8:15:00 EDT, Height, kg, [...] 0 Refill(s) Start Date: 03/17/22 Status: Ordered Uywhhznwmasx-Fm-Vmqb-Mineral s (Multiple Vitamins For Women) 1 EACH tablet (10 sources) Start: 04-20-2017 take 1 tablet by mouth once daily Ajvpaqdisepi-Ld-Finj-Minerals (Multiple Vitamins For Women) 1 EACH tablet Active 1 NMA PO DAILY April 20, 2017 12:00am mupirocin 0.02 mg/mg topical ointment (2 sources) RNA Synthet ase Inhibit or Antibac terial Start: 06-19-2022 mupirocin 2% topical ointmen t Apply 1 angelica, Topical, BID, Bilateral intranasal application twice daily x 5 days pre-surgery., Apply to: nostril, each, # 22 gram(s), 0 Refill(s), Pharmacy: [facility]/pharmacy #[id number], Ointment, 154.3, cm, 05/28/22 7:35:00 EDT, Height, 77 Start Date: 06/19/22 Status: Ordered nystatin [id number] unt/ml topic al cream (6 sources) Polyene Antifun gal Start: 07-24-2024 Nystatin 100,000 unit/gram cream Active 1 NMA TOPICAL TWICE DAILY NEEDED as needed for groin July 24, 2024 12:00am Start: 09-11-2022 End: 11-10-2022 nystatin 100,000 units/g top ical cream Apply 1 angelica, Topical, BID, PRN Rash, Apply to the affected area twice daily until healing complete., # 30 gram(s), 1 Refill(s), Pharmacy: [facility]/pharmacy #[id number], Cream, 156.5, cm, 09/11/22 11:11:00 EDT, Height, 73.1, kg, 09/11/22 11:11:00 EDT, Dosing Weight Start Date: 09/11/22 Stop Date: 11/10/22 Status: Ordered phenazopyridine hydrochloride 100 mg oral tablet (1 source) Start: 01-21-2024 End: 01-24-2024 Pyridium 100 mg oral tablet Dose : 100 mg = 1 tab(s), Oral, BID, X 3 day(s), # 6 tab(s), 0 Refill(s), 01/24/24 11:14:00 AM EST Start Date: 01/21/24 Stop Date: 01/24/24 Status: Ordered polyethylene glycol 3350 [id number] mg powder for oral solution (6 sources) Osmotic Laxative Start: 07-24-2024 Polyethylene Glycol [...] day(s), # 6 tab(s), 0 Refill(s), Pharmacy: [facility]/pharmacy #[id number], 155, cm, 12/15/23 10:32:00 EST, Height, 68.6, kg, 12/15/23 10:26:00 EST, Dosing Weight Start Date: 12/15/23 Stop Date: 12/18/23 Status: Ordered divalproex sodium 125 mg delayed release oral tablet (9 sources) Mood Stabilizer, Anti-epileptic Agent Start: 07-24-2024 [...] / HYDROcodone bitartrate 5 mg oral tablet (19 sources) Opioid Agonist Start: 04-27-2017 End: 08-25-2024 Hydrocodone-Acetam inophen 5-325 mg tablet Discontinued 1 {tbl} PO EVERY 6 HOURS as needed for pain 60 30 0 July 26, 2024 August 24, 2024 12:00am August 25, 2024 12:07am Closed fracture of pelvis ascorbic acid 1000 mg oral tablet (2 sources) Vitamin C take 1 tablet by mouth twice daily Ascorbic Acid 1,000 mg tablet Take 1,000 mg by mouth twice daily. 0 Active Comment on above: Take 1,000 mg by charles twice daily. Atenolol (16 sources) beta-Adrenergic Aniyah Start: 12-06-2021 End: 12-06-2021 atenolol Start: 12/06/21 9:00:00 EDT, Dose = 50 mg, = 1 tab(s), Oral, 0, 12/04/21 8:45:00 EDT Start Date: 12/06/21 Stop Date: 12/06/21 Status: Completed Start: 02-26-2017 take 2 tablets by mo [facility] once daily atenolol (TENORMIN) 50 mg tablet Take 100 mg by mouth once daily. 3 02/26/2017 Active Start: 10-27-2013 End: 07-24-2024 take 1 tablet by mouth once daily Atenolol 100 MG tablet Discontinued 100 mg PO DAILY April 20, 2017 12:00am July 24, 2024 1:38am Comment on above: Take 100 mg by mouth once daily. Calcium (1 source) Phosphate Binder, Calcium Start: CALCIUM 600 + D TABS 1 tablet daily CALCIUM CARB-CHOLECALCIFEROL TABS [id number] Vidya Babin DATA CONTROL CLERK calcium carbonate 1500 mg oral tablet (12 sources) Start: End: calcium (as carbonate) 600 mg oral tablet Dose : 600 mg = 1 tab(s), Oral, qDay, # 90 tab(s), 3 Refill(s), Pharmacy: [facility]/pharmacy #[id number], 156.5, cm, 09/11/22 11:11:00 EDT, [...] Comment on above: Take 3 tablets by [facility] once daily. cyclobenzaprine hydrochloride 10 mg oral tablet (15 sources) Muscle Relaxant Start: End: take 1 tablet by mouth once daily Cyclobenzaprine 10 MG tablet Discontinued 10 mg PO DAILY April 20, 2017 12:00am July 24, 2024 1:38am Comment on above: Take 10 mg by mouth once daily as needed. 1 ml denosumab 60 mg/ml prefilled syringe (2 sources) RANK Ligand Inhibitor Start: End: denosumab 60 mg/mL subcutaneous solution Dose [...] on above: Take 1 capsule by mo ut once daily. gabapentin 300 mg oral capsule (15 sources) Anti-epileptic Agent Start: End: take 1 capsule by mouth twice [...] on above: Take 1 tablet by charles once daily. hydrALAZINE (14 sources) Arteriolar Vasodilator Start: End: hydrALAZINE Start: 12/06/21 12:25:00 EDT, Dose = 25 mg, = 1 tab(s), Oral, 0, 12/06/21 11:21:00 EDT Start Date: 12/06/21 Stop Date: 12/06/21 Status: Completed Start: 08-03-2018 take 1 tablet by charles th once daily in the morning hydrALAZINE 25 mg oral tablet 1 tab(s), Oral, qAM, # 90 tab(s), 1 Refill(s), Pharmacy: [id number], 154.5, cm, 11/18/21 13:32:00 EDT, Height, kg, 11/18/21 13:32:00 EDT, Dosing Weight Start Date: 11/21/21 Status: Ordered Comment on above: Take 25 mg by mouth once daily. hydroCHLOROthiazide 25 mg oral tablet (15 sources) Thiazide Diuretic Start: End: take 1 tablet by mouth once daily Hydrochlorothiazide 25 MG tablet Discontinued 25 mg PO DAILY April 20, 2017 12:00am July 24, 2024 1:38am Comment on above: Take 25 mg by mouth once daily. MULTIPLE VITAMIN (1 source) Start: 014 MULTIVITAMINS CAPS 1 capsule daily MULTIPLE VITAMIN [id number] [place] multivitamin tablet (2 sources) take [...] Mixed hyperlipidemia 08-18-2019 Chronic E Codes: Fall (5 sources) Fall; Translations: [Unspecified fall, initial encounter] [...] of lumbar spine 12-29-2023 Episodic Other fractures (5 sources) Closed fracture of pelvis; Translations: [Fracture [...] of mental health and substance abuse codes (5 sources) H/O: dementia; Translations: [Personal history of [...] lymphocyte countOrd ered By: Jairon Medel on 08-21-2024 Lymphocytes Auto (Unsp spec) [#/Vol] 1.69 10*3/uL 0.83-4.51 [place] Absolute neutrophil countOrd ered By: Jairon Torojenifersophia on 08-21-2024 Neutrophils (Bld) [#/Vol] 4.3 10*3/uL 2.0-7.7 [place] Anion gap in Serum or Plasma Ordered By: Jairon Medel on 08-21-2024 Anion gap [Moles/Vol] 10 mmol/L 5-15 [facility] Automated lymphocyte count a s percentage of total leukocytesOrdered By: Jairon Medel on 08-21-2024 Lymphocytes/100 WBC Auto (Unsp spec) 24.9 % 19-41 [place] BUN/creatinine ratioOrdered By: Jairon Medel on 08-21-2024 Urea nitrogen/Creatinine [Mass ratio] 21.2 mg/mg High 10-20 [place] Basophil percentageOrdered B y: Jairon Medel on 08-21-2024 Basophils/100 WBC (Bld) 0.7 % 0-1 [facility] Carbon dioxide, total [Moles /volume] in Central venous bloodOrdered By: Jairon Medel on 08-21-2024 CO2 [Moles/Vol] 24.4 mmol/L 21.0-32.0 [place] Chloride assayOrdered By: Pooja Medel on 08-21-2024 Chloride [Moles/Vol] 108 mmol/L 98-108 [facility] Eosinophil percentageOrdered By: Jairon Medel on 08-21-2024 Eosinophils/100 WBC (Bld) 1.9 % 0-5 [place] Erythrocyte distribution wid th ratioOrdered By: Jairon Medel on 08-21-2024 Erythrocyte distribution width (RBC) [Ratio] 14.2 % 11.6-14.6 [place] Erythrocyte distribution wid th standard deviationOrdered By: Jairon Medel on 08-21-2024 Erythrocyte distribution width (RBC) [Ratio] 47.2 fl High 35.1-43.9 [place] Glomerular filtration rate ( GFR) estimation/1.73 sq m using serum, plasma, or whole bOrdered By: Jairon Medel on 08-21-2024 GFR/1.73 sq M.predicted among non-blacks MDRD (S/P/Bld) [Vol rate/Area] 67 mL/min/{1.73_m2} >60 [place] Comment on above: mL/min/1.73m2 CKD-EP I Creatinine Equation (2020) Hematocrit Auto (Bld) [Volum e fraction]Ordered By: Jairon Medel on 08-21-2024 Hematocrit (Bld) [Volume fraction] 31.9 % Low 37-47 [place] Hemoglobin measurementOrdere d By: Jairon Medle on 08-21-2024 Hemoglobin (Bld) [Mass/Vol] 10.2 g/dL Low 12.0-15.0 [place] Immature granulocytes/100 WB C Auto (Bld)Ordered By: Jairon Medel on 08-21-2024 Immature granulocytes/100 WBC (Bld) 0.100 % 0.0-0.9 [place] Comment on above: IG% - Immature Granu locytes (promyelocytes, myelocytes and metamyelocytes) > 1% indicates that a LEFT SHIFT is Present. MCV (mean corpuscular volume ) determinationOrdered By: Jairon Medel on 08-21-2024 MCV (RBC) [Entitic vol] 91.7 fL 81-99 [facility] Mean corpuscular hemoglobin (MCH) determinationOrdered By: Jairon Medel on 08-21-2024 MCH (RBC) [Entitic mass] 29.3 pg 27.0-32.0 [place] Mean corpuscular hemoglobin concentration (MCHC) determinationOrdered By: Jairon Medel on 08-21-2024 MCHC (RBC) [Mass/Vol] 32.0 g/dL 32-36 [facility] Mean platelet volume determi nationOrdered By: Jairon Medel on 08-21-2024 Platelet mean volume (Bld) [Entitic vol] 10.6 fL 6.2-12.0 [place] Monocyte percentageOrdered B y: Jairon Medel on 08-21-2024 Monocytes/100 WBC (Bld) 9.0 % 0-10 [facility] Neutrophil percentageOrdered By: Jairon Cortezjenifersophia on 08-21-2024 Neutrophils/100 WBC (Bld) 63.4 % 47-70 [place] Nucleated red blood cell per centageOrdered By: Poojasreekanthmahadmakenzie Torojenifersophia on 08-21-2024 Nucleated RBC/100 WBC (Bld) [Ratio] 0 % 0-5 [place] Platelet countOrdered By: Pooja margarette Cortezjenifersophia on 08-21-2024 Platelets (Bld) [#/Vol] 232 10*3/uL 150-450 [place] Potassium measurement (mass/ volume)Ordered By: Poojasreekanthmahadmakenzie Torojenifersophia on 08-21-2024 Potassium (Unsp spec) [Mass/Vol] 4.4 mmol/L 3.3-5.1 [place] RBC Auto (Bld) [#/Vol]Ordere d By: Poojasreekanthbraden Cortezjenifersophia on 08-21-2024 RBC (Bld) [#/Vol] 3.48 10*6/uL Low 4.2-5.4 [facility] Serum creatinine measurement (mass/volume)Ordered By: Poojasreekanthmahadmakenzie Torojenifersophia on 08-21-2024 Creatinine [Mass/Vol] 0.85 mg/dL 0.70-1.20 [facility] Serum glucose measurement (m ass/volume)Ordered By: Jairon Medel 08-21-2024 Glucose [Mass/Vol] 95 mg/dL 70-99 [facility] Serum or plasma calcium krissy urement (mass/volume)Ordered By: Jairon Torojenifersophia 08-21-2024 Calcium [Mass/Vol] 9.4 mg/dL 7.6-11.0 [facility] Serum or plasma urea nitroge n measurement (mass/volume)Ordered By: Poojamargarette Medel on 08-21-2024 Urea nitrogen [Mass/Vol] 18 mg/dL 4-19 [place] Sodium levelOrdered By: Poojasreekanth braden Gianfranco on 08-21-2024 Sodium [Moles/Vol] 142 mmol/L 133-145 [facility] White blood cell (WBC) count Ordered By: Jairon Medel on 08-21-2024 WBC (Bld) [#/Vol] 6.8 10*3/uL 4.4-11.0 [facility] Emergency Department Summary on 07-24-2024 Emergency Department Summary [facility] Medical Records Department [address] [place] [address] Emergency Department Summary 07/24/24 MR#: [id number] Acct: [id number] Name: CT DALTON Rep #: [id number] : 1940 83 From: Jean Claude Harry [...] and prediabetes. Took a fall today at extended[facility]care facility where she lives. Now having right hip pain and unable to walk on her right hip. Denies any other complaints. Denies hitting her head. Denies head or neck pain. Prior similar symptoms: No Recent Illness/Hospitalizatio n: No [facility] Medical History Malignant neoplasm of breast Prediabetes [...] PO DAILY 04/20/17 04/27/17 0 8:00 History ovcrmptgjjwt-Ed-icld-m inerals 1 ea PO DAILY 04/20/17 Unknown [...] range of motion. 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 Neurologically she is awake and alert. She answers questions she does have dementia and some confusion. She does follow commands. Const Vital Signs: 07/24/24 01:24 07/24/24 01:24 Temperature 98 F Temperature Source Oral Pulse Rate 53 L Respirator (more content not included)... Normal [place] HIP, UNI W/ Pelvis 2-3 Views on 07-24-2024 HIP, UNI W/ Pelvis 2-3 Views [facility] Imaging Services [address] [place] [address] HIP, UNI W/ Pelvis 2-3 Views MR#: [id number] Acct: [id number] Name: CT DALTON Rep #: [id number] : 1940 F 83 From: Lauri mason MD PCP: Dr. Jairon Medel MD Status: [facility] ER Study: HIP, UNI W/ Pelvis 2-3 Views Date of Exam: Exam# [id number] Ordering Dr: Jean Claude Harry MD PROCEDURE: [...] Right hip moderate degenerative changes. Reading Location: [place] [address] CC: Dr. Jairon Medel MD; Dr. Jean Claude Harry MD Swatch Maker: Signed Normal [place] Absolute lymphocyte countOrd ered By: Jairon Medel on 06-26-2024 Lymphocytes Auto (Unsp spec) [#/Vol] 2.05 10*3/uL 0.83-4.51 [place] Absolute neutrophil countOrd ered By: Jairon Medel on 06-26-2024 Neutrophils (Bld) [#/Vol] 3.9 10*3/uL 2.0-7.7 [place] Anion gap in Serum or Plasma Ordered By: Jairon Medel on 06-26-2024 Anion gap [Moles/Vol] 9 mmol/L 5-15 [facility] Automated lymphocyte count a s percentage of total leukocytesOrdered By: Jairon Medel on 06-26-2024 Lymphocytes/100 WBC Auto (Unsp spec) 30.5 % 19-41 [place] BUN/creatinine ratioOrdered By: Jairon Medel on 06-26-2024 Urea nitrogen/Creatinine [Mass ratio] 20.9 mg/mg High 10-20 [place] Basophil percentageOrdered B y: Jairon Medel on 06-26-2024 Basophils/100 WBC (Bld) 0.4 % 0-1 [facility] Carbon dioxide, total [Moles /volume] in Central venous bloodOrdered By: Jairon Medel on 06-26-2024 CO2 [Moles/Vol] 23.5 mmol/L 21.0-32.0 [place] Chloride assayOrdered By: Pooja Medel on 06-26-2024 Chloride [Moles/Vol] 107 mmol/L 98-108 [facility] Eosinophil percentageOrdered By: Jairon Medel on 06-26-2024 Eosinophils/100 WBC (Bld) 1.9 % 0-5 [place] Erythrocyte distribution wid th ratioOrdered By: Jairon Medel on 06-26-2024 Erythrocyte distribution width (RBC) [Ratio] 14.1 % 11.6-14.6 [place] Erythrocyte distribution wid th standard deviationOrdered By: Jairon Medel on 06-26-2024 Erythrocyte distribution width (RBC) [Ratio] 46.5 fl High 35.1-43.9 [place] Glomerular filtration rate ( GFR) estimation/1.73 sq m using serum, plasma, or whole bOrdered By: Jairon Medel on 06-26-2024 GFR/1.73 sq M.predicted among non-blacks MDRD (S/P/Bld) [Vol rate/Area] 55 mL/min/{1.73_m2} Low >60 [place] Comment on above: mL/min/1.73m2 CKD-EP I Creatinine Equation (2020) Hematocrit Auto (Bld) [Volum e fraction]Ordered By: Jairon Medel on 06-26-2024 Hematocrit (Bld) [Volume fraction] 32.7 % Low 37-47 [place] Hemoglobin measurementOrdere d By: Jairon Medel on 06-26-2024 Hemoglobin (Bld) [Mass/Vol] 10.1 g/dL Low 12.0-15.0 [place] Immature granulocytes/100 WB C Auto (Bld)Ordered By: Jairon Medel 06-26-2024 Immature granulocytes/100 WBC (Bld) 0.400 % 0.0-0.9 [place] Comment on above: IG% - Immature Granu locytes (promyelocytes, myelocytes and metamyelocytes) > 1% indicates that a LEFT SHIFT is Present. MCV (mean corpuscular volume ) determinationOrdered By: Jairon Medel on 06-26-2024 MCV (RBC) [Entitic vol] 90.3 fL 81-99 [facility] Mean corpuscular hemoglobin (MCH) determinationOrdered By: Jairon Medel 06-26-2024 MCH (RBC) [Entitic mass] 27.9 pg 27.0-32.0 [place] Mean corpuscular hemoglobin concentration (MCHC) determinationOrdered By: Jairon Medel 06-26-2024 MCHC (RBC) [Mass/Vol] 30.9 g/dL Low 32-36 [facility] Mean platelet volume determi nationOrdered By: Carrillomahadmakenzie Torojenifersophia on 06-26-2024 Platelet mean volume (Bld) [Entitic vol] 10.3 fL 6.2-12.0 [place] Monocyte percentageOrdered B y: Poojasreekanthmahadmakenzie Torojenifersophia on 06-26-2024 Monocytes/100 WBC (Bld) 8.8 % 0-10 [facility] Neutrophil percentageOrdered By: Jairon Torojenifersophia on 06-26-2024 Neutrophils/100 WBC (Bld) 58.0 % 47-70 [place] Nucleated red blood cell per centageOrdered By: Carrillomahadmakenzie Torojenifersophia on 06-26-2024 Nucleated RBC/100 WBC (Bld) [Ratio] 0 % 0-5 [place] Platelet countOrdered By: Pooja sreekanthbraden Medel on 06-26-2024 Platelets (Bld) [#/Vol] 242 10*3/uL 150-450 [place] Potassium measurement (mass/ volume)Ordered By: Jairon Medel on 06-26-2024 Potassium (Unsp spec) [Mass/Vol] 4.3 mmol/L 3.3-5.1 [place] RBC Auto (Bld) [#/Vol]Ordere d By: Jairon Medel on 06-26-2024 RBC (Bld) [#/Vol] 3.62 10*6/uL Low 4.2-5.4 [facility] Serum creatinine measurement (mass/volume)Ordered By: Jairon Medel on 06-26-2024 Creatinine [Mass/Vol] 1.01 mg/dL 0.70-1.20 [facility] Serum glucose measurement (m ass/volume)Ordered By: Jairon Medel on 06-26-2024 Glucose [Mass/Vol] 89 mg/dL 70-99 [facility] Serum or plasma calcium krissy urement (mass/volume)Ordered By: Jairon Medel on 06-26-2024 Calcium [Mass/Vol] 9.6 mg/dL 7.6-11.0 [facility] Serum or plasma urea nitroge n measurement (mass/volume)Ordered By: Jairon Medel on 06-26-2024 Urea nitrogen [Mass/Vol] 21 mg/dL High 4-19 [place] Sodium levelOrdered By: Carrillo feliciano Cortezjenifersophia on 06-26-2024 Sodium [Moles/Vol] 140 mmol/L 133-145 [facility] White blood cell (WBC) count Ordered By: Poojamargarette Torojenifersophia on 06-26-2024 WBC (Bld) [#/Vol] 6.7 10*3/uL 4.4-11.0 [facility] Absolute lymphocyte countOrd ered By: Jairon Torojenifersophia on 05-29-2024 Lymphocytes Auto (Unsp spec) [#/Vol] 2.09 10*3/uL 0.83-4.51 [place] Absolute neutrophil countOrd ered By: Jairon Torojenifersophia on 05-29-2024 Neutrophils (Bld) [#/Vol] 3.4 10*3/uL 2.0-7.7 [place] Anion gap in Serum or Plasma Ordered By: Jairon Torojenifersophia on 05-29-2024 Anion gap [Moles/Vol] 10 mmol/L 5-15 [facility] Automated lymphocyte count a s percentage of total leukocytesOrdered By: aJiron Torojenifersophia on 05-29-2024 Lymphocytes/100 WBC Auto (Unsp spec) 34.4 % 19-41 [place] BUN/creatinine ratioOrdered By: Jairon Torojenifersophia on 05-29-2024 Urea nitrogen/Creatinine [Mass ratio] 16.9 mg/mg 10-20 [place] Basophil percentageOrdered B y: Poojamargarette Torojenifersophia on 05-29-2024 Basophils/100 WBC (Bld) 1.2 % High 0-1 [facility] Bilirubin directOrdered By: Jairon Medel on 05-29-2024 Bilirubin.direct [Mass/Vol] 0.17 mg/dL 0.00-0.30 [place] Bilirubin, totalOrdered By: Jairon Medel on 05-29-2024 Bilirubin [Mass/Vol] 0.35 mg/dL 0.00-1.30 [facility] Carbon dioxide, total [Moles /volume] in Central venous bloodOrdered By: Jairon Medel on 05-29-2024 CO2 [Moles/Vol] 25.1 mmol/L 21.0-32.0 [place] Chloride assayOrdered By: Pooja Medel on 05-29-2024 Chloride [Moles/Vol] 105 mmol/L 98-108 [facility] Eosinophil percentageOrdered By: Jairon Medel on 05-29-2024 Eosinophils/100 WBC (Bld) 1.6 % 0-5 [place] Erythrocyte distribution wid th (RBC) [Ratio]Ordered By: margarette Medel on 05-29-2024 Erythrocyte distribution width (RBC) [Entitic vol] 41.0 fL 35.1-43.9 [place] Erythrocyte distribution wid th ratioOrdered By: Carrillomeadowlandsmakenzie Medel 05-29-2024 Erythrocyte distribution width (RBC) [Ratio] 13.1 % 11.6-14.6 [place] Erythrocyte distribution wid th standard deviationOrdered By: margarette Medel on 05-29-2024 Erythrocyte distribution width (RBC) [Ratio] 41.0 fl 35.1-43.9 [place] GFR/1.73 sq M.predicted hua g non-blacks MDRD (S/P/Bld) [Vol rate/Area]Ordered By: Jairon Medel on 05-29-2024 Estimated GFR (MDRD) Non-Af Amer 50 Low >60 [place] Comment on above: mL/min/1.73m2 CKD-EP I Creatinine Equation (2020) Glomerular filtration rate ( GFR) estimation/1.73 sq m using serum, plasma, or whole bOrdered By: Jairon Medel on 05-29-2024 GFR/1.73 sq M.predicted among non-blacks MDRD (S/P/Bld) [Vol rate/Area] 50 mL/min/{1.73_m2} Low >60 [place] Comment on above: mL/min/1.73m2 CKD-EP I Creatinine Equation (2020) Hematocrit Auto (Bld) [Volum e fraction]Ordered By: Jairon Medel 05-29-2024 Hematocrit (Bld) [Volume fraction] 33.4 % Low 37-47 [place] Hemoglobin measurementOrdere d By: Jairon Medel on 05-29-2024 Hemoglobin (Bld) [Mass/Vol] 10.9 g/dL Low 12.0-15.0 [place] Immature granulocytes/100 WB C Auto (Bld)Ordered By: Jairon Medel on 05-29-2024 Immature granulocytes/100 WBC (Bld) 0.200 % 0.0-0.9 [place] Comment on above: IG% - Immature Granu locytes (promyelocytes, myelocytes and metamyelocytes) > 1% indicates that a LEFT SHIFT is Present. Laboratory - Chemistry and C hemistry - challengeOrdered By: Jairon Medel on 05-29-2024 AST [Catalytic activity/Vol] 20 U/L <32 [place] Lymphocytes Auto (Unsp spec) [#/Vol]Ordered By: Jairon Medel on 05-29-2024 Lymphocytes (Bld) [#/Vol] 2.09 10*3/uL 0.83-4.51 [place] Lymphocytes/100 WBC Auto (Un sp spec)Ordered By: Jairon Medel on 05-29-2024 Lymphocytes/100 WBC (Bld) 34.4 % 19-41 [place] MCV (mean corpuscular volume ) determinationOrdered By: Jairon Medel on 05-29-2024 MCV (RBC) [Entitic vol] 85.9 fL 81-99 [facility] Mean corpuscular hemoglobin (MCH) determinationOrdered By: Jairon Medel on 05-29-2024 MCH (RBC) [Entitic mass] 28.0 pg 27.0-32.0 [place] Mean corpuscular hemoglobin concentration (MCHC) determinationOrdered By: Jairon Medel on 05-29-2024 MCHC (RBC) [Mass/Vol] 32.6 g/dL 32-36 [facility] Mean platelet volume determi nationOrdered By: Jairon Medel on 05-29-2024 Platelet mean volume (Bld) [Entitic vol] 10.3 fL 6.2-12.0 [place] Monocyte percentageOrdered B y: Jairon Medel on 05-29-2024 Monocytes/100 WBC (Bld) 7.6 % 0-10 [facility] Neutrophil percentageOrdered By: Poojasreekanthbraden Medel on 05-29-2024 Neutrophils/100 WBC (Bld) 55.0 % 47-70 [place] Nucleated red blood cell per centageOrdered By: Poojasreekanthbraden Cortezdorcas on 05-29-2024 Nucleated RBC/100 WBC (Bld) [Ratio] 0 % 0-5 [place] Platelet countOrdered By: Pooja margarette Cortezjenifersophia on 05-29-2024 Platelets (Bld) [#/Vol] 247 10*3/uL 150-450 [place] Potassium (Unsp spec) [Mass/ Vol]Ordered By: Jairon Medel on 05-29-2024 Potassium [Moles/Vol] 4.3 mmol/L 3.3-5.1 [facility] Potassium measurement (mass/ volume)Ordered By: Jairon Medel on 05-29-2024 Potassium (Unsp spec) [Mass/Vol] 4.3 mmol/L 3.3-5.1 [place] RBC Auto (Bld) [#/Vol]Ordere d By: Poojasreekanthbraden Cortezdorcas on 05-29-2024 RBC (Bld) [#/Vol] 3.89 10*6/uL Low 4.2-5.4 [facility] Serum creatinine measurement (mass/volume)Ordered By: Jairon Medel on 05-29-2024 Creatinine [Mass/Vol] 1.08 mg/dL 0.70-1.20 [facility] Serum globulin measurementOr dered By: Jairon Medel on 05-29-2024 Globulin (S) [Mass/Vol] 2.5 g/dL 2.2-4.2 [facility] Serum glucose measurement (m ass/volume)Ordered By: Jairon Medel on 05-29-2024 Glucose [Mass/Vol] 89 mg/dL 70-99 [facility] Serum or plasma alanine crane otransferase (ALT) measurementOrdered By: Poojasreekanthmahadmakenzie Torojenifersophia on 05-29-2024 ALT [Catalytic activity/Vol] 11 U/L <35 [place] Serum or plasma albumin krissy urement (mass/volume)Ordered By: Jairon Cortezjenifersophia on 05-29-2024 Albumin [Mass/Vol] 4.0 g/dL 3.4-4.8 [facility] Serum or plasma alkaline luis sphatase measurementOrdered By: Jairon Torojenifersophia on 05-29-2024 ALP [Catalytic activity/Vol] 62 U/L 35-104 [place] Serum or plasma calcium krissy urement (mass/volume)Ordered By: Carrillobraden Torojenifersophia on 05-29-2024 Calcium [Mass/Vol] 9.8 mg/dL 7.6-11.0 [facility] Serum or plasma urea nitroge n measurement (mass/volume)Ordered By: Jairon Torojenifersophia on 05-29-2024 Urea nitrogen [Mass/Vol] 18 mg/dL 4-19 [place] Sodium levelOrdered By: Carrlilo feliciano Gianfranco on 05-29-2024 Sodium [Moles/Vol] 140 mmol/L 133-145 [facility] Total proteinOrdered By: Masoud rosales Gianfranco on 05-29-2024 Protein [Mass/Vol] 6.4 g/dL 5.9-8.4 [facility] White blood cell (WBC) count Ordered By: Jairno Medel on 05-29-2024 WBC (Bld) [#/Vol] 6.1 10*3/uL 4.4-11.0 [facility] Absolute lymphocyte countOrd ered By: Poojasreekanthmahadmakenzie Medel on 05-24-2024 Lymphocytes Auto (Unsp spec) [#/Vol] 1.90 10*3/uL 0.83-4.51 [place] Absolute neutrophil countOrd ered By: Poojasreekanthbraden Cortezjenifersophia on 05-24-2024 Neutrophils (Bld) [#/Vol] 3.1 10*3/uL 2.0-7.7 [place] Anion gap in Serum or Plasma Ordered By: Carrillomahadmakenzie Medel on 05-24-2024 Anion gap [Moles/Vol] 11 mmol/L 5-15 [facility] Automated lymphocyte count a s percentage of total leukocytesOrdered By: Jairon Medel on 05-24-2024 Lymphocytes/100 WBC Auto (Unsp spec) 33.6 % 19-41 [place] BUN/creatinine ratioOrdered By: Jairon Medel on 05-24-2024 Urea nitrogen/Creatinine [Mass ratio] 19.7 mg/mg 10-20 [place] Basophil percentageOrdered B y: Jairon Medel on 05-24-2024 Basophils/100 WBC (Bld) 1.1 % High 0-1 [facility] Bilirubin, totalOrdered By: Jairon Medel on 05-24-2024 Bilirubin [Mass/Vol] 0.29 mg/dL 0.00-1.30 [facility] Carbon dioxide, total [Moles /volume] in Central venous bloodOrdered By: Jairon Medel on 05-24-2024 CO2 [Moles/Vol] 23.5 mmol/L 21.0-32.0 [place] Chloride assayOrdered By: Pooja Medel on 05-24-2024 Chloride [Moles/Vol] 106 mmol/L 98-108 [facility] Eosinophil percentageOrdered By: Jairon Medel on 05-24-2024 Eosinophils/100 WBC (Bld) 2.1 % 0-5 [place] Erythrocyte distribution wid th (RBC) [Ratio]Ordered By: Jairon Medel on 05-24-2024 Erythrocyte distribution width (RBC) [Entitic vol] 41.3 fL 35.1-43.9 [place] Erythrocyte distribution wid th ratioOrdered By: Jairon Medel on 05-24-2024 Erythrocyte distribution width (RBC) [Ratio] 13.2 % 11.6-14.6 [place] Erythrocyte distribution wid th standard deviationOrdered By: Jairon Medel on 05-24-2024 Erythrocyte distribution width (RBC) [Ratio] 41.3 fl 35.1-43.9 [place] GFR/1.73 sq M.predicted hua g non-blacks MDRD (S/P/Bld) [Vol rate/Area]Ordered By: Jairon Medel on 05-24-2024 Estimated GFR (MDRD) Non-Af Amer 52 Low >60 [place] Comment on above: mL/min/1.73m2 CKD-EP I Creatinine Equation (2020) Glomerular filtration rate ( GFR) estimation/1.73 sq m using serum, plasma, or whole bOrdered By: Jairon Medel on 05-24-2024 GFR/1.73 sq M.predicted among non-blacks MDRD (S/P/Bld) [Vol rate/Area] 52 mL/min/{1.73_m2} Low >60 [place] Comment on above: mL/min/1.73m2 CKD-EP I Creatinine Equation (2020) Hematocrit Auto (Bld) [Volum e fraction]Ordered By: Jairon Medel on 05-24-2024 Hematocrit (Bld) [Volume fraction] 33.2 % Low 37-47 [place] Hemoglobin A1c percentageOrd ered By: Jairon Medel on 05-24-2024 HbA1c (Bld) [Mass fraction] 5.5 % <5.7 [place] Comment on above: Normal < 5.7 % Predi abetic 5.7 - 6.4 % Diabetic >or= 6.5 % Please note range changes. Hemoglobin measurementOrdere d By: Jairon Medel on 05-24-2024 Hemoglobin (Bld) [Mass/Vol] 10.7 g/dL Low 12.0-15.0 [place] Immature granulocytes/100 WB C Auto (Bld)Ordered By: Jairon Medel on 05-24-2024 Immature granulocytes/100 WBC (Bld) 0.200 % 0.0-0.9 [place] Comment on above: IG% - Immature Granu locytes (promyelocytes, myelocytes and metamyelocytes) > 1% indicates that a LEFT SHIFT is Present. Laboratory - Chemistry and C hemistry - challengeOrdered By: Jairon Medel on 05-24-2024 AST [Catalytic activity/Vol] 21 U/L <32 [place] Lymphocytes Auto (Unsp spec) [#/Vol]Ordered By: Carrillomahadmakenzie Torojenifersophia on 05-24-2024 Lymphocytes (Bld) [#/Vol] 1.90 10*3/uL 0.83-4.51 [place] Lymphocytes/100 WBC Auto (Un sp spec)Ordered By: Poojasreekanthmahadmakenzie Torojenifersophia on 05-24-2024 Lymphocytes/100 WBC (Bld) 33.6 % 19-41 [place] MCV (mean corpuscular volume ) determinationOrdered By: Carrillomahadmakenzie Torojenifersophia on 05-24-2024 MCV (RBC) [Entitic vol] 86.2 fL 81-99 [facility] Mean corpuscular hemoglobin (MCH) determinationOrdered By: Jairon Medel on 05-24-2024 MCH (RBC) [Entitic mass] 27.8 pg 27.0-32.0 [place] Mean corpuscular hemoglobin concentration (MCHC) determinationOrdered By: Carrillomeadowlandsmakenzie Medel on 05-24-2024 MCHC (RBC) [Mass/Vol] 32.2 g/dL 32-36 [facility] Mean platelet volume determi nationOrdered By: Jairon Torojenifersophia on 05-24-2024 Platelet mean volume (Bld) [Entitic vol] 10.2 fL 6.2-12.0 [place] Monocyte percentageOrdered B y: Carrillomahadmakenzie Torojenifersophia on 05-24-2024 Monocytes/100 WBC (Bld) 8.1 % 0-10 [facility] Neutrophil percentageOrdered By: Jairon Torojenifersophia on 05-24-2024 Neutrophils/100 WBC (Bld) 54.9 % 47-70 [place] Nucleated red blood cell per centageOrdered By: Jairon Torojenifersophia on 05-24-2024 Nucleated RBC/100 WBC (Bld) [Ratio] 0 % 0-5 [place] Platelet countOrdered By: Pooja sreekanthbraden Torojenifersophia on 05-24-2024 Platelets (Bld) [#/Vol] 264 10*3/uL 150-450 [place] Potassium (Unsp spec) [Mass/ Vol]Ordered By: Carrillomahadmakenzie Torojenifersophia on 05-24-2024 Potassium [Moles/Vol] 3.9 mmol/L 3.3-5.1 [facility] Potassium measurement (mass/ volume)Ordered By: Jairon Medel on 05-24-2024 Potassium (Unsp spec) [Mass/Vol] 3.9 mmol/L 3.3-5.1 [place] RBC Auto (Bld) [#/Vol]Ordere d By: Jairon Medel on 05-24-2024 RBC (Bld) [#/Vol] 3.85 10*6/uL Low 4.2-5.4 [facility] Serum creatinine measurement (mass/volume)Ordered By: Jairon Medel on 05-24-2024 Creatinine [Mass/Vol] 1.05 mg/dL 0.70-1.20 [facility] Serum globulin measurementOr dered By: Jairon Medel on 05-24-2024 Globulin (S) [Mass/Vol] 2.6 g/dL 2.2-4.2 [facility] Serum glucose measurement (m ass/volume)Ordered By: Jairon Medel on 05-24-2024 Glucose [Mass/Vol] 95 mg/dL 70-99 [facility] Serum or plasma alanine crane otransferase (ALT) measurementOrdered By: Jairon Medel on 05-24-2024 ALT [Catalytic activity/Vol] 11 U/L <35 [place] Serum or plasma albumin krissy urement (mass/volume)Ordered By: Jairon Medel 05-24-2024 Albumin [Mass/Vol] 4.0 g/dL 3.4-4.8 [facility] Serum or plasma albumin/glob ulin mass ratioOrdered By: Jairon Medel 05-24-2024 Albumin/Globulin [Mass ratio] 1.5 {ratio} 0.9-2.4 [place] Serum or plasma alkaline luis sphatase measurementOrdered By: Jairon Medel 05-24-2024 ALP [Catalytic activity/Vol] 67 U/L 35-104 [place] Serum or plasma calcium krissy urement (mass/volume)Ordered By: Jairon Medel 05-24-2024 Calcium [Mass/Vol] 9.9 mg/dL 7.6-11.0 [facility] Serum or plasma urea nitroge n measurement (mass/volume)Ordered By: Jairon Medel on 05-24-2024 Urea nitrogen [Mass/Vol] 21 mg/dL High 4-19 [place] Sodium levelOrdered By: Carrillo Medel on 05-24-2024 Sodium [Moles/Vol] 141 mmol/L 133-145 [facility] Total proteinOrdered By: Masoud Medel on 05-24-2024 Protein [Mass/Vol] 6.6 g/dL 5.9-8.4 [facility] White blood cell (WBC) count Ordered By: Jairon Medel on 05-24-2024 WBC (Bld) [#/Vol] 5.7 10*3/uL 4.4-11.0 [facility] Anion gap in Serum or Plasma Ordered By: Jairon Medel on 05-15-2024 Anion gap [Moles/Vol] 10 mmol/L 5-15 [facility] BUN/creatinine ratioOrdered By: Jairon Medel on 05-15-2024 Urea nitrogen/Creatinine [Mass ratio] 15.3 mg/mg 10-20 [place] Carbon dioxide, total [Moles /volume] in Central venous bloodOrdered By: Jairon Medel on 05-15-2024 CO2 [Moles/Vol] 25.0 mmol/L 21.0-32.0 [place] Chloride assayOrdered By: Pooja Medel on 05-15-2024 Chloride [Moles/Vol] 108 mmol/L 98-108 [facility] GFR/1.73 sq M.predicted hua g non-blacks MDRD (S/P/Bld) [Vol rate/Area]Ordered By: Jairon Medel on 05-15-2024 Estimated GFR (MDRD) Non-Af Amer 57 Low >60 [place] Comment on above: mL/min/1.73m2 CKD-EP I Creatinine Equation (2020) Glomerular filtration rate ( GFR) estimation/1.73 sq m using serum, plasma, or whole bOrdered By: Jairon Medel on 05-15-2024 GFR/1.73 sq M.predicted among non-blacks MDRD (S/P/Bld) [Vol rate/Area] 57 mL/min/{1.73_m2} Low >60 [place] Comment on above: mL/min/1.73m2 CKD-EP I Creatinine Equation (2020) Potassium (Unsp spec) [Mass/ Vol]Ordered By: Jairon Medel on 05-15-2024 Potassium [Moles/Vol] 3.8 mmol/L 3.3-5.1 [facility] Potassium measurement (mass/ volume)Ordered By: Jairon Medel on 05-15-2024 Potassium (Unsp spec) [Mass/Vol] 3.8 mmol/L 3.3-5.1 [place] Serum creatinine measurement (mass/volume)Ordered By: Jairon Medel on 05-15-2024 Creatinine [Mass/Vol] 0.98 mg/dL 0.70-1.20 [facility] Serum glucose measurement (m ass/volume)Ordered By: Jairon Medel on 05-15-2024 Glucose [Mass/Vol] 87 mg/dL 70-99 [facility] Serum or plasma calcium krissy urement (mass/volume)Ordered By: Jairon Medel on 05-15-2024 Calcium [Mass/Vol] 9.8 mg/dL 7.6-11.0 [facility] Serum or plasma urea nitroge n measurement (mass/volume)Ordered By: Jairon Medel on 05-15-2024 Urea nitrogen [Mass/Vol] 15 mg/dL 4-19 [place] Sodium levelOrdered By: Carrillo Medel on 05-15-2024 Sodium [Moles/Vol] 143 mmol/L 133-145 [facility] Absolute lymphocyte countOrd ered By: Jairon Medel on 05-01-2024 Lymphocytes Auto (Unsp spec) [#/Vol] 1.90 10*3/uL 0.83-4.51 [place] Absolute neutrophil countOrd ered By: Jairon Medel on 05-01-2024 Neutrophils (Bld) [#/Vol] 2.7 10*3/uL 2.0-7.7 [place] Anion gap in Serum or Plasma Ordered By: Jairon Medel on 05-01-2024 Anion gap [Moles/Vol] 11 mmol/L 5-15 [facility] Automated lymphocyte count a s percentage of total leukocytesOrdered By: Jairon Medel on 05-01-2024 Lymphocytes/100 WBC Auto (Unsp spec) 35.5 % 19-41 [place] BUN/creatinine ratioOrdered By: sreekanthmeadowlandsmakenzie Torojenifersophia on 05-01-2024 Urea nitrogen/Creatinine [Mass ratio] 17.8 mg/mg 10-20 [place] Basophil percentageOrdered B y: Carrillomahadmakenzie Torojenifersophia on 05-01-2024 Basophils/100 WBC (Bld) 1.5 % High 0-1 [facility] Carbon dioxide, total [Moles /volume] in Central venous bloodOrdered By: Jairon Medel on 05-01-2024 CO2 [Moles/Vol] 23.3 mmol/L 21.0-32.0 [place] Chloride assayOrdered By: Pooja sreekanthbraden Medel on 05-01-2024 Chloride [Moles/Vol] 107 mmol/L 98-108 [facility] Eosinophil percentageOrdered By: Poojamargarette Torojenifersophia on 05-01-2024 Eosinophils/100 WBC (Bld) 2.2 % 0-5 [place] Erythrocyte distribution wid th (RBC) [Ratio]Ordered By: Jairon Torojenifersophia on 05-01-2024 Erythrocyte distribution width (RBC) [Entitic vol] 44.5 fL High 35.1-43.9 [place] Erythrocyte distribution wid th ratioOrdered By: margarette Torojenifersophia on 05-01-2024 Erythrocyte distribution width (RBC) [Ratio] 13.0 % 11.6-14.6 [place] Erythrocyte distribution wid th standard deviationOrdered By: Jairon Torojenifersophia on 05-01-2024 Erythrocyte distribution width (RBC) [Ratio] 44.5 fl High 35.1-43.9 [place] GFR/1.73 sq M.predicted hua g non-blacks MDRD (S/P/Bld) [Vol rate/Area]Ordered By: Jairon Medel on 05-01-2024 Estimated GFR (MDRD) Non-Af Amer 58 Low >60 [place] Comment on above: mL/min/1.73m2 CKD-EP I Creatinine Equation (2020) Glomerular filtration rate ( GFR) estimation/1.73 sq m using serum, plasma, or whole bOrdered By: Jairon Medel on 05-01-2024 GFR/1.73 sq M.predicted among non-blacks MDRD (S/P/Bld) [Vol rate/Area] 58 mL/min/{1.73_m2} Low >60 [place] Comment on above: mL/min/1.73m2 CKD-EP I Creatinine Equation (2020) Hematocrit Auto (Bld) [Volum e fraction]Ordered By: Jairon Medel on 05-01-2024 Hematocrit (Bld) [Volume fraction] 37.3 % 37-47 [place] Hemoglobin measurementOrdere d By: Jairon Medel on 05-01-2024 Hemoglobin (Bld) [Mass/Vol] 11.3 g/dL Low 12.0-15.0 [place] Immature granulocytes/100 WB C Auto (Bld)Ordered By: Jairon Medel on 05-01-2024 Immature granulocytes/100 WBC (Bld) 1.100 % High 0.0-0.9 [place] Comment on above: IG% - Immature Granu locytes (promyelocytes, myelocytes and metamyelocytes) > 1% indicates that a LEFT SHIFT is Present. Lymphocytes Auto (Unsp spec) [#/Vol]Ordered By: Jairon Medel on 05-01-2024 Lymphocytes (Bld) [#/Vol] 1.90 10*3/uL 0.83-4.51 [place] Lymphocytes/100 WBC Auto (Un sp spec)Ordered By: Jairon Medel on 05-01-2024 Lymphocytes/100 WBC (Bld) 35.5 % 19-41 [place] MCV (mean corpuscular volume ) determinationOrdered By: Jairon Medel on 05-01-2024 MCV (RBC) [Entitic vol] 93.5 fL 81-99 [facility] Mean corpuscular hemoglobin (MCH) determinationOrdered By: Jairon Cortezjenifersophia on 05-01-2024 MCH (RBC) [Entitic mass] 28.3 pg 27.0-32.0 [place] Mean corpuscular hemoglobin concentration (MCHC) determinationOrdered By: Poojasreekanthmahadmakenzie Torojenifersophia on 05-01-2024 MCHC (RBC) [Mass/Vol] 30.3 g/dL Low 32-36 [facility] Mean platelet volume determi nationOrdered By: Jairon Cortezjenifersophia on 05-01-2024 Platelet mean volume (Bld) [Entitic vol] 10.2 fL 6.2-12.0 [place] Monocyte percentageOrdered B y: Goldiemakenzie Torojenifersophia on 05-01-2024 Monocytes/100 WBC (Bld) 9.0 % 0-10 [facility] Neutrophil percentageOrdered By: Jairon Cortezjenifersophia on 05-01-2024 Neutrophils/100 WBC (Bld) 50.7 % 47-70 [place] Nucleated red blood cell per centageOrdered By: Jairon Cortezdorcas on 05-01-2024 Nucleated RBC/100 WBC (Bld) [Ratio] 0 % 0-5 [place] Platelet countOrdered By: Pooja margarette Cortezjenifersophia on 05-01-2024 Platelets (Bld) [#/Vol] 235 10*3/uL 150-450 [place] Potassium (Unsp spec) [Mass/ Vol]Ordered By: Carrillomahadmakenzie Torojenifersophia on 05-01-2024 Potassium [Moles/Vol] 4.3 mmol/L 3.3-5.1 [facility] Potassium measurement (mass/ volume)Ordered By: Poojasreekanthmahadmakenzie Torojenifersophia on 05-01-2024 Potassium (Unsp spec) [Mass/Vol] 4.3 mmol/L 3.3-5.1 [place] RBC Auto (Bld) [#/Vol]Ordere d By: Carrillomahadmakenzie Torojenifersophia on 05-01-2024 RBC (Bld) [#/Vol] 3.99 10*6/uL Low 4.2-5.4 [facility] Serum creatinine measurement (mass/volume)Ordered By: Jairon Medel on 05-01-2024 Creatinine [Mass/Vol] 0.96 mg/dL 0.70-1.20 [facility] Serum glucose measurement (m ass/volume)Ordered By: Poojasreekanthbraden Cortezdorcas on 05-01-2024 Glucose [Mass/Vol] 89 mg/dL 70-99 [facility] Serum or plasma calcium krissy urement (mass/volume)Ordered By: Goldiemakenzie Torojenifersophia on 05-01-2024 Calcium [Mass/Vol] 9.8 mg/dL 7.6-11.0 [facility] Serum or plasma urea nitroge n measurement (mass/volume)Ordered By: Jairon Medel on 05-01-2024 Urea nitrogen [Mass/Vol] 17 mg/dL 4-19 [place] Sodium levelOrdered By: Carrillo De Leonsophia on 05-01-2024 Sodium [Moles/Vol] 141 mmol/L 133-145 [facility] White blood cell (WBC) count Ordered By: Jairon Medel on 05-01-2024 WBC (Bld) [#/Vol] 5.4 10*3/uL 4.4-11.0 [facility] Absolute lymphocyte countOrd ered By: Godliemakenzie Torojenifersophia on 04-03-2024 Lymphocytes Auto (Unsp spec) [#/Vol] 1.70 10*3/uL 0.83-4.51 [place] Absolute neutrophil countOrd ered By: Jairon Medel on 04-03-2024 Neutrophils (Bld) [#/Vol] 3.0 10*3/uL 2.0-7.7 [place] Automated lymphocyte count a s percentage of total leukocytesOrdered By: Goldiemakenzie Torojenifersophia on 04-03-2024 Lymphocytes/100 WBC Auto (Unsp spec) 32.1 % 19-41 [place] Basophil percentageOrdered B y: Goldiemakenzie Torojenifersophia on 04-03-2024 Basophils/100 WBC (Bld) 1.3 % High 0-1 [facility] Blood urea nitrogen (BUN)/cr eatinine ratioOrdered By: Jairon Medel on 04-03-2024 Urea nitrogen/Creatinine [Mass ratio] 21.1 mg/mg High 10-20 [place] Carbon dioxide measurementOr dered By: Jairon Medel on 04-03-2024 CO2 [Moles/Vol] 27.0 mmol/L 21.0-32.0 [place] Chloride measurementOrdered By: Jairon Medel on 04-03-2024 Chloride [Moles/Vol] 111 mmol/L High 98-107 [facility] Eosinophil percentageOrdered By: Jairon Medel on 04-03-2024 Eosinophils/100 WBC (Bld) 2.3 % 0-5 [place] Erythrocyte distribution wid th (RBC) [Ratio]Ordered By: Jairon Medel on 04-03-2024 Erythrocyte distribution width (RBC) [Entitic vol] 43.2 fL 35.1-43.9 [place] Erythrocyte distribution wid th ratioOrdered By: Jairon Medel on 04-03-2024 Erythrocyte distribution width (RBC) [Ratio] 13.2 % 11.6-14.6 [place] Erythrocyte distribution wid th standard deviationOrdered By: Carrillomeadowlandsmakenzie Medel on 04-03-2024 Erythrocyte distribution width (RBC) [Ratio] 43.2 fl 35.1-43.9 [place] Estimated glomerular filtrat ion rate (GFR) AmericanOrdered By: Jairon Medel on 04-03-2024 Estimated GFR (MDRD) Amer 72 mL/min >60 [place] Comment on above: GFR Calc Glomerular filtration rate ( GFR) estimationOrdered By: Jairon Medel on 04-03-2024 Estimated GFR (MDRD) Non-Af Amer 59 mL/min Low >60 [place] Comment on above: Non- GFR Calc GFR/1.73 sq M.predicted among non-blacks MDRD (S/P/Bld) [Vol rate/Area] 59 mL/min/{1.73_m2} Low >60 [place] Comment on above: Non- GFR Calc Glucose measurementOrdered B y: Jairon Medel on 04-03-2024 Glucose [Mass/Vol] 93 mg/dL 74-106 [facility] Hematocrit Auto (Bld) [Volum e fraction]Ordered By: Jairon Medel on 04-03-2024 Hematocrit (Bld) [Volume fraction] 31.6 % Low 37-47 [place] Hemoglobin measurementOrdere d By: Jairon Meedl on 04-03-2024 Hemoglobin (Bld) [Mass/Vol] 9.7 g/dL Low 12.0-15.0 [place] Immature granulocytes/100 WB C Auto (Bld)Ordered By: margarette Medel on 04-03-2024 Immature granulocytes/100 WBC (Bld) 0.200 % 0.0-0.9 [place] Comment on above: IG% - Immature Granu locytes (promyelocytes, myelocytes and metamyelocytes) > 1% indicates that a LEFT SHIFT is Present. Lymphocytes Auto (Unsp spec) [#/Vol]Ordered By: Jairon Medel on 04-03-2024 Lymphocytes (Bld) [#/Vol] 1.70 10*3/uL 0.83-4.51 [place] Lymphocytes/100 WBC Auto (Un sp spec)Ordered By: Jairon Medel on 04-03-2024 Lymphocytes/100 WBC (Bld) 32.1 % 19-41 [place] MCV (mean corpuscular volume ) determinationOrdered By: Jairon Medel on 04-03-2024 MCV (RBC) [Entitic vol] 91.1 fL 81-99 [facility] Mean corpuscular hemoglobin (MCH) determinationOrdered By: Jairon Medel on 04-03-2024 MCH (RBC) [Entitic mass] 28.0 pg 27.0-32.0 [place] Mean corpuscular hemoglobin concentration (MCHC) determinationOrdered By: Jairon Medel on 04-03-2024 MCHC (RBC) [Mass/Vol] 30.7 g/dL Low 32-36 [facility] Mean platelet volume determi nationOrdered By: Jairon Medel on 04-03-2024 Platelet mean volume (Bld) [Entitic vol] 9.9 fL 6.2-12.0 [place] Monocyte percentageOrdered B y: Jairon Cortezdorcas on 04-03-2024 Monocytes/100 WBC (Bld) 8.3 % 0-10 [facility] Neutrophil percentageOrdered By: Goldiemakenzie Torojenifersophia on 04-03-2024 Neutrophils/100 WBC (Bld) 55.8 % 47-70 [place] Nucleated red blood cell per centageOrdered By: Poojasreekanthmahadmakenzie Torojenifersophia on 04-03-2024 Nucleated RBC/100 WBC (Bld) [Ratio] 0 % 0-5 [place] Platelet countOrdered By: Pooja meghanmakenzie Torojenifersophia on 04-03-2024 Platelets (Bld) [#/Vol] 229 10*3/uL 150-450 [place] Potassium measurementOrdered By: Jairon Medel on 04-03-2024 Potassium [Moles/Vol] 4.4 mmol/L 3.5-5.1 [facility] RBC Auto (Bld) [#/Vol]Ordere d By: Carrillomahadmakenzie Torodorcas on 04-03-2024 RBC (Bld) [#/Vol] 3.47 10*6/uL Low 4.2-5.4 [facility] Serum anion gap measurementO rdered By: Jairon Torojenifersophia on 04-03-2024 Anion gap [Moles/Vol] 6 mmol/L 5-15 [facility] Serum or plasma calcium krissy urement (mass/volume)Ordered By: Jairon Medel on 04-03-2024 Calcium [Mass/Vol] 9.4 mg/dL 8.5-10.1 [facility] Serum or plasma creatinine m easurement (mass/volume)Ordered By: Jairon Medel on 04-03-2024 Creatinine [Mass/Vol] 0.95 mg/dL 0.55-1.02 [facility] Comment on above: The validity of the calculated GFR & GFRAA in patients over 70 years has not been determined. Clinical correlation is essential. Serum or plasma urea nitroge n measurement (mass/volume)Ordered By: Efmargarette Torojenifersophia on 04-03-2024 Urea nitrogen [Mass/Vol] 20 mg/dL High 7-18 [place] Sodium levelOrdered By: Carrillo feliciano Cortezjenifersophia on 04-03-2024 Sodium [Moles/Vol] 144 mmol/L 136-145 [facility] White blood cell (WBC) count Ordered By: Poojameghanmakenzie Cortezjenifersophia on 04-03-2024 WBC (Bld) [#/Vol] 5.3 10*3/uL 4.4-11.0 [facility] Absolute lymphocyte countOrd ered By: Poojasreekanthbraden Cortezjenifersophia on 03-27-2024 Lymphocytes Auto (Unsp spec) [#/Vol] 2.06 10*3/uL 0.83-4.51 [place] Absolute neutrophil countOrd ered By: Poojamargarette Torojenifersophia on 03-27-2024 Neutrophils (Bld) [#/Vol] 3.3 10*3/uL 2.0-7.7 [place] Automated lymphocyte count a s percentage of total leukocytesOrdered By: Jairon Torojenifersophia on 03-27-2024 Lymphocytes/100 WBC Auto (Unsp spec) 33.5 % 19-41 [place] Basophil percentageOrdered B y: Poojasreekanthmahadmakenzie Torojenifersophia on 03-27-2024 Basophils/100 WBC (Bld) 0.8 % 0-1 [facility] Blood urea nitrogen (BUN)/cr eatinine ratioOrdered By: Jairon Torojenifersophia on 03-27-2024 Urea nitrogen/Creatinine [Mass ratio] 19.3 mg/mg 10-20 [place] Carbon dioxide measurementOr dered By: Jairon Torojenifersophia on 03-27-2024 CO2 [Moles/Vol] 27.0 mmol/L 21.0-32.0 [place] Chloride measurementOrdered By: Jairon Medel on 03-27-2024 Chloride [Moles/Vol] 110 mmol/L High 98-107 [facility] Eosinophil percentageOrdered By: Jairon Torojenifersophia on 03-27-2024 Eosinophils/100 WBC (Bld) 2.3 % 0-5 [place] Erythrocyte distribution wid th (RBC) [Ratio]Ordered By: Jairon Medel on 03-27-2024 Erythrocyte distribution width (RBC) [Entitic vol] 43.7 fL 35.1-43.9 [place] Erythrocyte distribution wid th ratioOrdered By: Jairon Medel on 03-27-2024 Erythrocyte distribution width (RBC) [Ratio] 13.2 % 11.6-14.6 [place] Erythrocyte distribution wid th standard deviationOrdered By: Jairon Medel on 03-27-2024 Erythrocyte distribution width (RBC) [Ratio] 43.7 fl 35.1-43.9 [place] Estimated glomerular filtrat ion rate (GFR) AmericanOrdered By: Jairon Medel on 03-27-2024 Estimated GFR (MDRD) Amer 69 mL/min >60 [place] Comment on above: GFR Calc Glomerular filtration rate ( GFR) estimationOrdered By: Jairon Medel on 03-27-2024 Estimated GFR (MDRD) Non-Af Amer 57 mL/min Low >60 [place] Comment on above: Non- GFR Calc GFR/1.73 sq M.predicted among non-blacks MDRD (S/P/Bld) [Vol rate/Area] 57 mL/min/{1.73_m2} Low >60 [place] Comment on above: Non- GFR Calc Glucose measurementOrdered B y: Jairon Medel on 03-27-2024 Glucose [Mass/Vol] 89 mg/dL 74-106 [facility] Hematocrit Auto (Bld) [Volum e fraction]Ordered By: Jairon Medel on 03-27-2024 Hematocrit (Bld) [Volume fraction] 30.9 % Low 37-47 [place] Hemoglobin measurementOrdere d By: Jairon Medel on 03-27-2024 Hemoglobin (Bld) [Mass/Vol] 9.6 g/dL Low 12.0-15.0 [place] Immature granulocytes/100 WB C Auto (Bld)Ordered By: Jairon Medel on 03-27-2024 Immature granulocytes/100 WBC (Bld) 0.500 % 0.0-0.9 [place] Comment on above: IG% - Immature Granu locytes (promyelocytes, myelocytes and metamyelocytes) > 1% indicates that a LEFT SHIFT is Present. Lymphocytes Auto (Unsp spec) [#/Vol]Ordered By: Jairon Medel on 03-27-2024 Lymphocytes (Bld) [#/Vol] 2.06 10*3/uL 0.83-4.51 [place] Lymphocytes/100 WBC Auto (Un sp spec)Ordered By: Jairon Medel on 03-27-2024 Lymphocytes/100 WBC (Bld) 33.5 % 19-41 [place] MCV (mean corpuscular volume ) determinationOrdered By: Jairon Medel on 03-27-2024 MCV (RBC) [Entitic vol] 90.1 fL 81-99 [facility] Mean corpuscular hemoglobin (MCH) determinationOrdered By: sreekanthmeadowlandsmakenzie Medel on 03-27-2024 MCH (RBC) [Entitic mass] 28.0 pg 27.0-32.0 [place] Mean corpuscular hemoglobin concentration (MCHC) determinationOrdered By: Jairon Medel on 03-27-2024 MCHC (RBC) [Mass/Vol] 31.1 g/dL Low 32-36 [facility] Mean platelet volume determi nationOrdered By: Jairon Medel on 03-27-2024 Platelet mean volume (Bld) [Entitic vol] 10.2 fL 6.2-12.0 [place] Monocyte percentageOrdered B y: Jairon Medel on 03-27-2024 Monocytes/100 WBC (Bld) 9.6 % 0-10 [facility] Neutrophil percentageOrdered By: margarette Medel on 03-27-2024 Neutrophils/100 WBC (Bld) 53.3 % 47-70 [place] Nucleated red blood cell per centageOrdered By: Jairon Medel on 03-27-2024 Nucleated RBC/100 WBC (Bld) [Ratio] 0 % 0-5 [place] Platelet countOrdered By: Pooja Medel on 03-27-2024 Platelets (Bld) [#/Vol] 235 10*3/uL 150-450 [place] Potassium measurementOrdered By: Jairon Medel on 03-27-2024 Potassium [Moles/Vol] 4.0 mmol/L 3.5-5.1 [facility] RBC Auto (Bld) [#/Vol]Ordere d By: Jairon Medel on 03-27-2024 RBC (Bld) [#/Vol] 3.43 10*6/uL Low 4.2-5.4 [facility] Serum anion gap measurementO rdered By: Jairon Medel on 03-27-2024 Anion gap [Moles/Vol] 6 mmol/L 5-15 [facility] Serum or plasma calcium krissy urement (mass/volume)Ordered By: Jairon Medel on 03-27-2024 Calcium [Mass/Vol] 9.3 mg/dL 8.5-10.1 [facility] Serum or plasma creatinine m easurement (mass/volume)Ordered By: Jairon Medel on 03-27-2024 Creatinine [Mass/Vol] 0.98 mg/dL 0.55-1.02 [facility] Comment on above: The validity of the calculated GFR & GFRAA in patients over 70 years has not been determined. Clinical correlation is essential. Serum or plasma urea nitroge n measurement (mass/volume)Ordered By: Jairon Medel on 03-27-2024 Urea nitrogen [Mass/Vol] 19 mg/dL High 7-18 [place] Sodium levelOrdered By: Carrillo Medel on 03-27-2024 Sodium [Moles/Vol] 143 mmol/L 136-145 [facility] White blood cell (WBC) count Ordered By: Jairon Medel on 03-27-2024 WBC (Bld) [#/Vol] 6.2 10*3/uL 4.4-11.0 [facility] 37-OS-Tsvyzsk DOrdered By: Sophia Medel on 02-28-2024 Vitamin D 25-Hydroxy 60.8 ng/mL [facility] Comment on above: Vitamin D 25(OH) Sta tus Range Deficiency <20 ng/mL (50nmol/L) Insufficiency 20 - 30 ng/mL (50 - 75 nmol/L) Sufficiency 30 - 100 ng/mL (75 - 250 nmol/L) Toxicity >100 ng/mL (>250 nmol/L) Absolute lymphocyte countOrd ered By: Jairon Medel on 02-28-2024 Lymphocytes Auto (Unsp spec) [#/Vol] 1.75 10*3/uL 0.83-4.51 [place] Absolute neutrophil countOrd ered By: Jairon Medel on 02-28-2024 Neutrophils (Bld) [#/Vol] 3.9 10*3/uL 2.0-7.7 [place] Albumin to globulin ratioOrd ered By: Jairon Medel on 02-28-2024 Albumin/Globulin [Mass ratio] 1.0 {ratio} 0.9-2.4 [place] Automated lymphocyte count a s percentage of total leukocytesOrdered By: Jairon Medel on 02-28-2024 Lymphocytes/100 WBC Auto (Unsp spec) 27.3 % 19-41 [place] Basophil percentageOrdered B y: Jairon Medel on 02-28-2024 Basophils/100 WBC (Bld) 0.8 % 0-1 [facility] Bilirubin, totalOrdered By: Jairon Medel on 02-28-2024 Bilirubin [Mass/Vol] 0.20 mg/dL 0.20-1.00 [facility] Comment on above: For patients on eltr ombopag therapy, use of Dimension [place] TBIL is not recommended. Blood urea nitrogen (BUN)/cr eatinine ratioOrdered By: Jairon Medel on 02-28-2024 Urea nitrogen/Creatinine [Mass ratio] 24.1 mg/mg High 10-20 [place] Carbon dioxide measurementOr dered By: Jairon Medel on 02-28-2024 CO2 [Moles/Vol] 27.0 mmol/L 21.0-32.0 [place] Chloride measurementOrdered By: Jairon Medel on 02-28-2024 Chloride [Moles/Vol] 111 mmol/L High 98-107 [facility] Eosinophil percentageOrdered By: Jairon Medel on 02-28-2024 Eosinophils/100 WBC (Bld) 2.3 % 0-5 [place] Erythrocyte distribution wid th (RBC) [Ratio]Ordered By: Jairon Medel on 02-28-2024 Erythrocyte distribution width (RBC) [Entitic vol] 43.7 fL 35.1-43.9 [place] Erythrocyte distribution wid th ratioOrdered By: Jairon Medel on 02-28-2024 Erythrocyte distribution width (RBC) [Ratio] 13.4 % 11.6-14.6 [place] Erythrocyte distribution wid th standard deviationOrdered By: Jairon Medel on 02-28-2024 Erythrocyte distribution width (RBC) [Ratio] 43.7 fl 35.1-43.9 [place] Estimated glomerular filtrat ion rate (GFR) AmericanOrdered By: Jairon Medel on 02-28-2024 Estimated GFR (MDRD) Amer 72 mL/min >60 [place] Comment on above: GFR Calc Glomerular filtration rate ( GFR) estimationOrdered By: Jairon Medel on 02-28-2024 Estimated GFR (MDRD) Non-Af Amer 59 mL/min Low >60 [place] Comment on above: Non- GFR Calc GFR/1.73 sq M.predicted among non-blacks MDRD (S/P/Bld) [Vol rate/Area] 59 mL/min/{1.73_m2} Low >60 [place] Comment on above: Non- GFR Calc Glucose measurementOrdered B y: Jairon Medel on 02-28-2024 Glucose [Mass/Vol] 93 mg/dL 74-106 [facility] Hematocrit Auto (Bld) [Volum e fraction]Ordered By: Jairon Medel on 02-28-2024 Hematocrit (Bld) [Volume fraction] 32.1 % Low 37-47 [place] Hemoglobin measurementOrdere d By: Jairon Medel on 02-28-2024 Hemoglobin (Bld) [Mass/Vol] 9.9 g/dL Low 12.0-15.0 [place] High density lipoprotein (HD L) measurementOrdered By: Jairon Medel on 02-28-2024 Cholesterol in HDL [Mass/Vol] 58 mg/dL >40 [place] Comment on above: The drugs N-Acetylcy steine and Metamizole may falsely depress this assay. Reference Range HDL <40 mg/dL Low HDL Cholesterol HDL >or= 60 mg/dL High HDL Cholesterol Immature granulocytes/100 WB C Auto (Bld)Ordered By: Jairon Medel on 02-28-2024 Immature granulocytes/100 WBC (Bld) 0.300 % 0.0-0.9 [place] Comment on above: IG% - Immature Granu locytes (promyelocytes, myelocytes and metamyelocytes) > 1% indicates that a LEFT SHIFT is Present. Laboratory - Chemistry and C hemistry - challengeOrdered By: Jairon Medel on 02-28-2024 AST [Catalytic activity/Vol] 15 U/L 15-37 [place] Low density lipoprotein (LDL ) cholesterol measurementOrdered By: Jairon Medel on 02-28-2024 Cholesterol in LDL [Mass/Vol] 67 mg/dL 0-130 [place] Lymphocytes Auto (Unsp spec) [#/Vol]Ordered By: Jairon Medel on 02-28-2024 Lymphocytes (Bld) [#/Vol] 1.75 10*3/uL 0.83-4.51 [place] Lymphocytes/100 WBC Auto (Un sp spec)Ordered By: Jairon Medel on 02-28-2024 Lymphocytes/100 WBC (Bld) 27.3 % 19-41 [place] MCV (mean corpuscular volume ) determinationOrdered By: Jairon Medel on 02-28-2024 MCV (RBC) [Entitic vol] 89.4 fL 81-99 [facility] Mean corpuscular hemoglobin (MCH) determinationOrdered By: Jairon Medel on 02-28-2024 MCH (RBC) [Entitic mass] 27.6 pg 27.0-32.0 [place] Mean corpuscular hemoglobin concentration (MCHC) determinationOrdered By: Jairon Medel on 02-28-2024 MCHC (RBC) [Mass/Vol] 30.8 g/dL Low 32-36 [facility] Mean platelet volume determi nationOrdered By: Jairon Medel on 02-28-2024 Platelet mean volume (Bld) [Entitic vol] 9.6 fL 6.2-12.0 [place] Monocyte percentageOrdered B y: Jairon Medel on 02-28-2024 Monocytes/100 WBC (Bld) 8.7 % 0-10 [facility] Neutrophil percentageOrdered By: Jairon Medel on 02-28-2024 Neutrophils/100 WBC (Bld) 60.6 % 47-70 [place] Nucleated red blood cell per centageOrdered By: Jairon Medel on 02-28-2024 Nucleated RBC/100 WBC (Bld) [Ratio] 0 % 0-5 [place] Platelet countOrdered By: Pooja Medel on 02-28-2024 Platelets (Bld) [#/Vol] 261 10*3/uL 150-450 [place] Potassium measurementOrdered By: Jairon Medel on 02-28-2024 Potassium [Moles/Vol] 4.1 mmol/L 3.5-5.1 [facility] RBC Auto (Bld) [#/Vol]Ordere d By: Jairon Medel on 02-28-2024 RBC (Bld) [#/Vol] 3.59 10*6/uL Low 4.2-5.4 [facility] Serum anion gap measurementO rdered By: Jairon Medel on 02-28-2024 Anion gap [Moles/Vol] 4 mmol/L Low 5-15 [facility] Serum globulin measurementOr dered By: Jairon Medel on 02-28-2024 Globulin (S) [Mass/Vol] 2.9 g/dL 2.2-4.2 [facility] Serum or plasma alanine crane otransferase (ALT) measurementOrdered By: Jairon Medel on 02-28-2024 ALT [Catalytic activity/Vol] 17 U/L 13-56 [place] Serum or plasma albumin krissy urement (mass/volume)Ordered By: Jairon Medel on 02-28-2024 Albumin [Mass/Vol] 2.8 g/dL Low 3.2-5.0 [facility] Serum or plasma alkaline luis sphatase measurementOrdered By: Jairon Medel on 02-28-2024 ALP [Catalytic activity/Vol] 63 U/L 45-117 [place] Serum or plasma calcium krissy urement (mass/volume)Ordered By: Jairon Medel on 02-28-2024 Calcium [Mass/Vol] 9.6 mg/dL 8.5-10.1 [facility] Serum or plasma cholesterol measurement (mass/volume)Ordered By: Jairon Medel on 02-28-2024 Cholesterol [Mass/Vol] 134 mg/dL <200 [facility] Comment on above: <200 mg/dL Desirable 200-240 mg/dL Borderline >240 mg/dL High Risk Serum or plasma creatinine m easurement (mass/volume)Ordered By: Jairon Medel on 02-28-2024 Creatinine [Mass/Vol] 0.95 mg/dL 0.55-1.02 [facility] Comment on above: The validity of the calculated GFR & GFRAA in patients over 70 years has not been determined. Clinical correlation is essential. Serum or plasma urea nitroge n measurement (mass/volume)Ordered By: Jairon Medel on 02-28-2024 Urea nitrogen [Mass/Vol] 23 mg/dL High 7-18 [place] Sodium levelOrdered By: Carrillo malcolmrajesh Gianfranco on 02-28-2024 Sodium [Moles/Vol] 143 mmol/L 136-145 [facility] Total proteinOrdered By: Masoud Medel on 02-28-2024 Protein [Mass/Vol] 5.7 g/dL Low 6.4-8.2 [facility] Triglycerides measurementOrd ered By: Jairon Medel on 02-28-2024 Triglyceride [Mass/Vol] 43 mg/dL <199 [facility] Comment on above: The drugs N-Acetylcy steine and Metamizole may falsely depress this assay.Serum Triglycerides Reference Interval Normal <150 mg/dL Borderline high 150 - 199 mg/dL High 200 - 499 mg/dL Very High > or = 500 mg/dL Valproate levelOrdered By: Sophia Medel on 02-28-2024 Valproic Acid (Depakene) Level 26 ug/mL Low 50-100 [place] Very low density lipoprotein (VLDL) cholesterol measurementOrdered By: Jairon Medel on 02-28-2024 Very low density lipoprotein (VLDL) cholesterol measurement 9 mg/dL [place] VLDL Cholesterol 9 mg/dL [place] White blood cell (WBC) count Ordered By: Jairon Medel on 02-28-2024 WBC (Bld) [#/Vol] 6.4 10*3/uL 4.4-11.0 [facility] .Auto Diffon 02-10-2024 Basophil, Absolute 0.1 10 3/mcL Normal 0.0-0.2 [facility] Comment on above: Performed By: #### B MP, MG, ANEU, ADIFF, CBC, GFR ####[address] [address] Basophils/100 WBC (Bld) 1.1 % Normal 0.0-2.5 [facility] Comment on above: Performed By: #### B MP, MG, ANEU, ADIFF, CBC, GFR ####[facility] [place], [place] [address] Eosinophil, Absolute 0.1 10 3/mcL Normal 0.0-0.7 [facility] Comment on above: Performed By: #### B MP, MG, ANEU, ADIFF, CBC, GFR ####[address] [address] [place], [place] [address] Eosinophils/100 WBC (Bld) 1.8 % Normal 0.0-7.0 [facility] Comment on above: Performed By: #### B MP, MG, ANEU, ADIFF, CBC, GFR ####[address] [place], [place] [address] Lymphocyte, Absolute 1.4 10 3/mcL Normal 0.9-4.3 [facility] Comment on above: Performed By: #### B MP, MG, ANEU, ADIFF, CBC, GFR ####[address] [place], [place] [address] Lymphocytes/100 WBC (Bld) 25.4 % Normal 20.0-40.0 [facility] Comment on above: Performed By: #### B MP, MG, ANEU, ADIFF, CBC, GFR ####[address] [place], [place] [address] Monocyte, Absolute 0.4 10 3/mcL Normal 0.1-1.4 [facility] Comment on above: Performed By: #### B MP, MG, ANEU, ADIFF, CBC, GFR ####[address] [place], [place] [address] Monocytes/100 WBC (Bld) 7.4 % Normal 2.0-13.0 [facility] Comment on above: Performed By: #### B MP, MG, ANEU, ADIFF, CBC, GFR ####[address] [place], [place] [address] Neutrophils/100 WBC (Bld) 64.3 % Normal 50.0-75.0 [facility] Comment on above: Performed By: #### B MP, MG, ANEU, ADIFF, CBC, GFR ####[address] [place], [place] [address] .GFRon 02-10-2024 GFR 73 ml/min/1.73sqm Normal [facility] Comment on above: Result Comment: GFR [...] B MP, MG, ANEU, ADIFF, CBC, GFR ####[facility] [place], [place] [address] GFR Non- 60 ml/min/1.73sqm Normal [facility] Comment on above: Result Comment: GFR [...] B MP, MG, ANEU, ADIFF, CBC, GFR ####[facility] [place], [place] [address] .NEUABSon 02-10-2024 Neutrophil, Absolute 3.7 10 3/mcL Normal 2.3-8.1 [facility] Comment on above: Performed By: #### B MP, MG, ANEU, ADIFF, CBC, GFR ####[facility] [place], [place] [address] BMPon 02-10-2024 BUN/Creatinine Ratio 25 ratio Normal 7-27 [facility] Comment on above: Performed By: #### B MP, MG, ANEU, ADIFF, CBC, GFR ####[facility] [place], [place] [address] Calcium [Mass/Vol] 10.0 mg/dL Normal 8.4-10.2 [facility] Comment on above: Performed By: #### B MP, MG, ANEU, ADIFF, CBC, GFR ####[facility] [place], [place] [address] Chloride [Moles/Vol] 107 mmol/L Normal 98-107 [facility] Comment on above: Performed By: #### B MP, MG, ANEU, ADIFF, CBC, GFR ####[address] [address] CO2 [Moles/Vol] 30 mmol/L Normal 23-31 [facility] Comment on above: Performed By: #### B MP, MG, ANEU, ADIFF, CBC, GFR ####[address] [address] Creatinine [Mass/Vol] 0.89 mg/dL Normal 0.55-1.02 [facility] Comment on above: Result Comment: Test ing performed on [employer] Dimension EXL analyzer using a modified kinetic Dora technique. Performed By: #### B MP, MG, ANEU, ADIFF, CBC, GFR ####[place] [address] [address] Electrolyte Balance 8.0 mEq/L Normal 4.0-15.0 [facility] Comment on above: Performed By: #### B MP, MG, ANEU, ADIFF, CBC, GFR ####[address] [address] Glucose [Mass/Vol] 111 mg/dL High 83-110 [facility] Comment on above: Performed By: #### B MP, MG, ANEU, ADIFF, CBC, GFR ####[address] [address] Potassium [Moles/Vol] 4.0 mmol/L Normal 3.5-5.1 [facility] Comment on above: Performed By: #### B MP, MG, ANEU, ADIFF, CBC, GFR ####[address] [address] Sodium [Moles/Vol] 145 mmol/L Normal 136-145 [facility] Comment on above: Performed By: #### B MP, MG, ANEU, ADIFF, CBC, GFR ####[address] [address] Urea nitrogen [Mass/Vol] 22 mg/dL High 7-18 [facility] Comment on above: Performed By: #### B MP, MG, ANEU, ADIFF, CBC, GFR ####[place] [place], [place] [address] CBCon 02-10-2024 Erythrocyte distribution width (RBC) [Ratio] 14.1 % Normal 11.5-15.5 [facility] Comment on above: Performed By: #### B MP, MG, ANEU, ADIFF, CBC, GFR ####[place] [address] Hematocrit (Bld) [Volume fraction] 33.2 % Low 34.0-46.0 [facility] Comment on above: Performed By: #### B MP, MG, ANEU, ADIFF, CBC, GFR ####[address] [place], [place] [address] Hgb 11.3 G/dL Low 12.0-16.0 [facility] Comment on above: Performed By: #### B MP, MG, ANEU, ADIFF, CBC, GFR ####[address] [place], [place] [address] MCH (RBC) [Entitic mass] 28.8 pg Normal 27.0-33.0 [facility] Comment on above: Performed By: #### B MP, MG, ANEU, ADIFF, CBC, GFR ####[address] [place], [place] [address] MCHC 34.1 G/dL Normal 32.0-36.0 [facility] Comment on above: Performed By: #### B MP, MG, ANEU, ADIFF, CBC, GFR ####[address] [address] MCV (RBC) [Entitic vol] 84.5 fL Normal 80.0-99.0 [facility] Comment on above: Performed By: #### B MP, MG, ANEU, ADIFF, CBC, GFR ####[address] [address] Platelet 272 10 3/mcL Normal 150-450 [facility] Comment on above: Performed By: #### B MP, MG, ANEU, ADIFF, CBC, GFR ####[place] [address] [place], [place] [address] Platelet mean volume (Bld) [Entitic vol] 7.7 fL Normal 6.6-10.5 [facility] Comment on above: Performed By: #### B MP, MG, ANEU, ADIFF, CBC, GFR ####[place] [address] [place] [address] RBC 3.93 10 6/mcL Low 4.10-5.30 [facility] Comment on above: Performed By: #### B MP, MG, ANEU, ADIFF, CBC, GFR ####[place] [address] [place] [address] WBC 5.7 10 3/mcL Normal 4.5-10.8 [facility] Comment on above: Performed By: #### B MP, MG, ANEU, ADIFF, CBC, GFR ####[facility] [place] [address] LABORATORYOrdered By: SYSTEM SYSTEM on 02-10-2024 Basophils [...] 02-10-2024 Magnesium [Mass/Vol] 1.7 mg/dL Low 1.8-2.4 [facility] Comment on above: Performed By: #### B MP, MG, ANEU, ADIFF, CBC, GFR ####[address] [address] .Auto Diffon 02-09-2024 Basophil, Absolute 0.1 10 3/mcL Normal 0.0-0.2 [facility] Comment on above: Performed By: #### B MP, MDW, GFR, ANEU, TROPHS, PBNP, CBC, ADIFF ####[place] [address] [address] Basophils/100 WBC (Bld) 1.1 % Normal 0.0-2.5 [facility] Comment on above: Performed By: #### B MP, MDW, GFR, ANEU, TROPHS, PBNP, CBC, ADIFF ####[place] [address] [address] Eosinophil, Absolute 0.1 10 3/mcL Normal 0.0-0.7 [facility] Comment on above: Performed By: #### B MP, MDW, GFR, ANEU, TROPHS, PBNP, CBC, ADIFF ####[place] [address] [address] Eosinophils/100 WBC (Bld) 1.6 % Normal 0.0-7.0 [facility] Comment on above: Performed By: #### B MP, MDW, GFR, ANEU, TROPHS, PBNP, CBC, ADIFF ####[place] [address] [address] Lymphocyte, Absolute 2.2 10 3/mcL Normal 0.9-4.3 [facility] Comment on above: Performed By: #### B MP, MDW, GFR, ANEU, TROPHS, PBNP, CBC, ADIFF ####[place] [address] [place], [place] [address] Lymphocytes/100 WBC (Bld) 29.4 % Normal 20.0-40.0 [facility] Comment on above: Performed By: #### B MP, MDW, GFR, ANEU, TROPHS, PBNP, CBC, ADIFF ####[facility] [place], [place] [address] Monocyte, Absolute 0.7 10 3/mcL Normal 0.1-1.4 [facility] Comment on above: Performed By: #### B JEISON, NAFISA, GFR, ANEU, TROPHS, PBNP, CBC, ADIFF ####[place] [address] [place], [place] [address] Monocytes/100 WBC (Bld) 9.6 % Normal 2.0-13.0 [facility] Comment on above: Performed By: #### B JEISON, NAFISA, GFR, ANEU, TROPHS, PBNP, CBC, ADIFF ####[place] [address] [place], [place] [address] Neutrophils/100 WBC (Bld) 58.3 % Normal 50.0-75.0 [facility] Comment on above: Performed By: #### B NAFISA MCHUGH, GFR, ANEU, TROPHS, PBNP, CBC, ADIFF ####[facility] [place], [place] [address] .GFRon 02-09-2024 GFR 67 ml/min/1.73sqm Normal [facility] Comment on above: Result Comment: GFR [...] mL/min/1.73 square meters Performed By: #### B JEISON, NAFISA, GFR, ANEU, TROPHS, PBNP, CBC, ADIFF ####[facility] [place], [place] [address] GFR Non- 55 ml/min/1.73sqm Normal [facility] Comment on above: Result Comment: GFR [...] mL/min/1.73 square meters Performed By: #### B JEISON, W, GFR, ANEU, TROPHS, PBNP, CBC, ADIFF ####[place] [address] [place], [place] [address] .MDWon 02-09-2024 Monocyte Distribution Width 17.09 Normal 0.00-20.00 [facility] Comment on above: Result Comment: For ED adult patients suspected of sepsis, MDW<=20.0 does not rule out sepsis or risk of sepsis Performed By: #### B JEISON, W, GFR, ANEU, TROPHS, PBNP, CBC, ADIFF ####[place] [address] [place], [place] [address] .NEUABSon 02-09-2024 Neutrophil, Absolute 4.4 10 3/mcL Normal 2.3-8.1 [facility] Comment on above: Performed By: #### B JEISON, W, GFR, ANEU, TROPHS, PBNP, CBC, ADIFF ####[place] [address] [place], [place] [address] BMPon 02-09-2024 BUN/Creatinine Ratio 26 ratio Normal 7-27 [facility] Comment on above: Performed By: #### B JEISON, W, GFR, ANEU, TROPHS, PBNP, CBC, ADIFF ####[place] [address] [place], [place] [address] Calcium [Mass/Vol] 10.4 mg/dL High 8.4-10.2 [facility] Comment on above: Performed By: #### B NAFISA MCHUGH, GFR, ANEU, TROPHS, PBNP, CBC, ADIFF ####[place] [address] [place], [place] [address] Chloride [Moles/Vol] 104 mmol/L Normal 98-107 [facility] Comment on above: Performed By: #### B NAFISA MCHUGH, GFR, ANEU, TROPHS, PBNP, CBC, ADIFF ####[place] [address] [place], [place] [address] CO2 [Moles/Vol] 30 mmol/L Normal 23-31 [facility] Comment on above: Performed By: #### B NAFISA MCHUGH, GFR, ANEU, TROPHS, PBNP, CBC, ADIFF ####[place] [address] [place], [place] [address] Creatinine [Mass/Vol] 0.96 mg/dL Normal 0.55-1.02 [facility] Comment on above: Result Comment: Test ing performed on [employer] Dimension EXL analyzer using a modified kinetic Dora technique. Performed By: #### B NAFISA MCHUGH, GFR, ANEU, TROPHS, PBNP, CBC, ADIFF ####[place] [address] [place], [place] [address] Electrolyte Balance 10.0 mEq/L Normal 4.0-15.0 [facility] Comment on above: Performed By: #### B NAFISA MCHUGH, GFR, ANEU, TROPHS, PBNP, CBC, ADIFF ####[place] [address] [place], [place] [address] Glucose [Mass/Vol] 108 mg/dL Normal 83-110 [facility] Comment on above: Performed By: #### B NAFISA MCHUGH, GFR, ANEU, TROPHS, PBNP, CBC, ADIFF ####[place] [address] [place], [place] [address] Potassium [Moles/Vol] 3.6 mmol/L Normal 3.5-5.1 [facility] Comment on above: Performed By: #### B MP, MDW, GFR, ANEU, TROPHS, PBNP, CBC, ADIFF ####[place] [address] [place], [place] [address] Sodium [Moles/Vol] 144 mmol/L Normal 136-145 [facility] Comment on above: Performed By: #### B MP, MDW, GFR, ANEU, TROPHS, PBNP, CBC, ADIFF ####[place] [address] [place] [id number] Urea nitrogen [Mass/Vol] 25 mg/dL High 7-18 [facility] Comment on above: Performed By: #### B MP, MDW, GFR, ANEU, TROPHS, PBNP, CBC, ADIFF ####[place] [address] [place] [id number] CBCon 02-09-2024 Erythrocyte distribution width (RBC) [Ratio] 14.0 % Normal 11.5-15.5 [facility] Comment on above: Performed By: #### B MP, MDW, GFR, ANEU, TROPHS, PBNP, CBC, ADIFF ####[place] [address] [place] [id number] Hematocrit (Bld) [Volume fraction] 34.7 % Normal 34.0-46.0 [facility] Comment on above: Performed By: #### B MP, MDW, GFR, ANEU, TROPHS, PBNP, CBC, ADIFF ####[place] [address] [place] [id number] Hgb 11.7 G/dL Low 12.0-16.0 [facility] Comment on above: Performed By: #### B MP, MDW, GFR, ANEU, TROPHS, PBNP, CBC, ADIFF ####[place] [address] [place] [id number] MCH (RBC) [Entitic mass] 28.7 pg Normal 27.0-33.0 [facility] Comment on above: Performed By: #### B MP, MDW, GFR, ANEU, TROPHS, PBNP, CBC, ADIFF ####[place] [address] [place], [place] [address] MCHC 33.7 G/dL Normal 32.0-36.0 [facility] Comment on above: Performed By: #### B NAFISA MCHUGH, GFR, ANEU, TROPHS, PBNP, CBC, ADIFF ####[facility] [place], [place] [address] MCV (RBC) [Entitic vol] 85.0 fL Normal 80.0-99.0 [facility] Comment on above: Performed By: #### B NAFISA MCHUGH, GFR, ANEU, TROPHS, PBNP, CBC, ADIFF ####[address] [address] [address] [place], [place] [address] Platelet 266 10 3/mcL Normal 150-450 [facility] Comment on above: Performed By: #### B NAFISA MCHUGH, GFR, ANEU, TROPHS, PBNP, CBC, ADIFF ####[address] [address] [place], [place] [address] Platelet mean volume (Bld) [Entitic vol] 7.4 fL Normal 6.6-10.5 [facility] Comment on above: Performed By: #### B NAFISA MCHUGH, GFR, ANEU, TROPHS, PBNP, CBC, ADIFF ####[facility] [place], [place] [address] RBC 4.08 10 6/mcL Low 4.10-5.30 [facility] Comment on above: Performed By: #### B NAFISA MCHUGH, GFR, ANEU, TROPHS, PBNP, CBC, ADIFF ####[place] [address] [place], [place] [address] WBC 7.6 10 3/mcL Normal 4.5-10.8 [facility] Comment on above: Performed By: #### B NAFISA MCHUGH, GFR, ANEU, TROPHS, PBNP, CBC, ADIFF ####[place] [address] [place], [place] [address] LABORATORYOrdered By: Addis Pelayo on 02-09-2024 Appearance [...] ng/L Male: 0-76 ng/L Testing performed on Dimension EXL using a homogeneous sandwich chemiluminescent immunoassay based on [employer] technology. Urea nitrogen [Mass/Vol] 25 mg/dL High 7 - 18 mg/dL AO ADM SS Urea nitrogen/Creatinine [Mass ratio] 26 ratio Normal 7 - 27 ratio AO ADM SS WBC (Bld) [#/Vol] 7.6 103/mcL Normal 4.5 - 10.8 10^3/mcL AO Workflow SS PBNPon 02-09-2024 Natriuretic peptide B (Bld) [Mass/Vol] 3243 pg/mL High 0-450 [facility] Comment on above: Result Comment: NT-p roBNP results of less than 300 pg/mL effectively rules out acute congestive heart failure with 99% negative predictive value. Performed By: #### B NAFISA MCHUGH, GFR, ANEU, TROPHS, PBNP, CBC, ADIFF ####[place] [address] [place], [place] [address] TROPHSon 02-09-2024 High Sensitivity Troponin I 23 ng/L Normal 0-51 [facility] Comment on above: Result Comment: High Sensitive Troponin I Reference Ranges: Female: 0-51 ng/L Male: 0-76 ng/L Testing performed on Dimension EXL using a homogeneous sandwich chemiluminescent immunoassay based on [employer] technology. Performed By: #### B NAFISA MCHUGH, GFR, ANEU, TROPHS, PBNP, CBC, ADIFF ####[place] [address] [place], [place] [address] UAon 02-09-2024 Color (U) Yellow Normal [facility] Comment on above: Performed By: #### U A ####[place] [address] [place] [address] Glucose (U) [Mass/Vol] Negative Normal Negative [facility] Comment on above: Performed By: #### U A ####[place] [address] [place] [address] Ketones Ql (U) Negative Normal Negative [facility] Comment on above: Performed By: #### U A ####[place] [address] [place] [address] UA Appear Clear Normal Clear [facility] Comment on above: Performed By: #### U A ####[place] [address] [place] [address] UA Blood Negative Normal Negative [facility] Comment on above: Performed By: #### U A ####[address] [place] [address] UA Leuk Est Negative Normal Negative [facility] Comment on above: Performed By: #### U A ####[place] [address] [place] [address] UA Nitrite Negative Normal Negative [facility] Comment on above: Performed By: #### U A ####[place] [address] [place] [address] UA pH 6.5 Normal 5.0 - 8.0 [facility] Comment on above: Performed By: #### U A ####[place] [address] [place] [address] UA Protein Negative Normal Negative [facility] Comment on above: Performed By: #### U A ####[place] [address] [place] [address] UA Spec Grav 1.015 Normal 1.015-1.025 [facility] Comment on above: Performed By: #### U A ####[place] [address] [place] [address] UA Specimen Type Void Normal [facility] Comment on above: Performed By: #### U A ####[place] [address] [place] [address] UA Urobilinogen 0.2 E.U./dL Normal 0.2-1.0 [facility] Comment on above: Performed By: #### U A ####[place] [address] [place], [place] [address] Urobilinogen (U) [Mass/Vol] Negative Normal Negative [facility] Comment on above: Performed By: #### U A ####[place] [address] [place], [place] [address] VALPRon 02-09-2024 LDose Valproic Acid: Unknown Normal [facility] Comment on above: Performed By: #### V ALPR ####[place] [address] [place], [place] [address] Valproic Acid Lvl 30 mcg/mL Low 50-100 [facility] Comment on above: Performed By: #### V ALPR ####[facility] [place], [place] [address] XR CHEST 1 VIEWon 02-09-2024 XR CHEST [...] 9:08:10 PM Ordering Provider: TRIXIE BARONE Normal [facility] .Urinalysis Microscopic (AO) on 01-21-2024 UA Amorphus 1+ /hpf Normal [facility] Comment on above: Performed By: #### U A, UAMICAO ####[facility] [place], [place] [address] UA CA Ox Crystal 1+ /hpf Normal [facility] Comment on above: Performed By: #### U A, UAMICAO ####[place] [address] [place], [place] [address] UA Mucous 2+ /hpf Normal [facility] Comment on above: Performed By: #### U A, UAMICAO ####[place] [address] [place], [place] [address] UA RBC 0-5 Abnormal None Seen [facility] Comment on above: Performed By: #### U A, UAMICAO ####[place] [address] [place] [address] UA Squam Epithelial 0-5 Abnormal None Seen [facility] Comment on above: Performed By: #### U A, UAMICAO ####[place] [address] [place] [id number] UA WBC 0-5 Abnormal None Seen [facility] Comment on above: Performed By: #### U A, UAMICAO ####[place] [address] [place], [place] [address] LABORATORYOrdered By: Mao Nava on 01-21-2024 Appearance [...] SS UAon 01-21-2024 Color (U) Yellow Normal [facility] Comment on above: Performed By: #### U A, UAMICAO ####[place] [address] [address] Glucose (U) [Mass/Vol] Negative Normal Negative [facility] Comment on above: Performed By: #### U A, UAMICAO ####[place] [address] [address] Ketones Ql (U) Negative Normal Negative [facility] Comment on above: Performed By: #### U A, UAMICAO ####[place] [address] [address] UA Appear Clear Normal Clear [facility] Comment on above: Performed By: #### U A, UAMICAO ####[place] [address] [place] [address] UA Blood Negative Normal Negative [facility] Comment on above: Performed By: #### U A, UAMICAO ####[place] [address] [place] [address] UA Leuk Est Negative Normal Negative [facility] Comment on above: Performed By: #### U A, UAMICAO ####[place] [address] [address] UA Nitrite Negative Normal Negative [facility] Comment on above: Performed By: #### U A, UAMICAO ####[place] [address] [place] [address] UA pH 6.0 Normal 5.0 - 8.0 [facility] Comment on above: Performed By: #### U A, UAMICAO ####[place] [address] [place] [address] UA Protein 30 mg/dL Normal Negative [facility] Comment on above: Performed By: #### U A, UAMICAO ####[place] [address] [place] [address] UA Spec Grav 1.020 Normal 1.015-1.025 [facility] Comment on above: Performed By: #### U A, UAMICAO ####[place] [address] [place] [address] UA Specimen Type Hua Catheter Normal [facility] Comment on above: Performed By: #### U A, UAMICAO ####[place] [address] [place] [address] UA Urobilinogen 0.2 E.U./dL Normal 0.2-1.0 [facility] Comment on above: Performed By: #### U A, UAMICAO ####[place] [address] [place] [address] Urobilinogen (U) [Mass/Vol] Negative Normal Negative [facility] Comment on above: Performed By: #### U A, UAMICAO ####[place] [address] [place] [address] [place] BLADDERon 01-07-2024 US BLADDER ORIGINAL EXAMINATION: [...] Date: 01/07/2024 11:24:46 AM Ordering Provider: LARRY THOMAS [facility] .GFRon 12-29-2023 GFR 54 ml/min/1.73sqm [facility] Comment on above: Result Comment: GFR Population [...] meters Performed By: #### G FR, BMP, JANIA ####[place] [address] [place], [place] [address] GFR Non- 44 ml/min/1.73sqm [facility] Comment on above: Result Comment: GFR Population [...] Performed By: #### G FR, BMP, CAION ####[place] [address] [place], [place] [address] BMPon 12-29-2023 BUN/Creatinine Ratio 20 ratio Normal 7-27 [facility] Comment on above: Performed By: #### LINDA SOLIS CAION ####[place] [address] [place], [place] [address] Calcium [Mass/Vol] 10.3 mg/dL High 8.4-10.2 [facility] Comment on above: Performed By: #### LINDA SOLIS CAION ####[place] [address] [place], [place] [address] Chloride [Moles/Vol] 104 mmol/L Normal 98-107 [facility] Comment on above: Performed By: #### LINDA SOLIS CAION ####[address] [place], [place] [address] CO2 [Moles/Vol] 31 mmol/L Normal 23-31 [facility] Comment on above: Performed By: #### LINDA SOLIS CAION ####[address] [place], [place] [address] Creatinine [Mass/Vol] 1.16 mg/dL High 0.55-1.02 [facility] Comment on above: Result Comment: Test ing performed on Siemens Dimension EXL analyzer using a modified kinetic Dora technique. Performed By: #### LINDA SOLIS CAION ####[address] [place], [place] [address] Electrolyte Balance 7.0 mEq/L Normal 4.0-15.0 [facility] Comment on above: Performed By: #### LINDA SOLIS CAION ####[address] [place], [place] [address] Glucose [Mass/Vol] 92 mg/dL Normal 83-110 [facility] Comment on above: Performed By: #### LINDA SOLIS CAION ####[address] [place], [place] [address] Potassium [Moles/Vol] 4.2 mmol/L Normal 3.5-5.1 [facility] Comment on above: Performed By: #### LINDA SOLIS CAION ####[address] [place], [place] [address] Sodium [Moles/Vol] 142 mmol/L Normal 136-145 [facility] Comment on above: Performed By: #### G LINDA SPAULDING, JANIA ####[address] [place], [place] [address] Urea nitrogen [Mass/Vol] 23 mg/dL High 7-18 [facility] Comment on above: Performed By: #### G LINDA SPAULDING, JANIA ####[address] [place], [place] [address] CAIONon 12-29-2023 Calcium Ionized 1.27 mmol/L Normal 1.12-1.32 [facility] Comment on above: Performed By: #### LINDA SOLIS CAION ####[address] [place], [place] [address] LABORATORYOrdered By: SYSTEM SYSTEM on 12-29-2023 Calcium [...] Rapid Comm SS XR CHEST 2 VIEWSon 4 XR CHEST 2 VIEWS ORIGINAL EXAMINATION: TWO [...] 12/21/2023 4:21:17 PM Ordering Provider: LARRY Geronimo [facility] XR SPINE LUMBAR W/OBLIQUES 4 VIEWSon [...] Date: 12/21/2023 4:34:05 PM Ordering Provider: LARRY THOMAS [facility] B12on 12-16-2023 Cobalamin (Vitamin B12) [Mass/Vol] 509 pg/mL Normal 211-911 [facility] Comment on above: Performed By: #### F , FERR ####[place] [id number]#### B12, FOL ####[place] [id number] [address] [place] [address] FOLon 12-16-2023 Folate >48.00 High 5.38-24.00 [facility] Comment on above: Performed By: #### F ES, FERR ####[place] [address]#### B12, FOL ####[place] [address] .Auto Diffon 12-15-2023 Basophil, Absolute 0.1 10 3/mcL Normal 0.0-0.2 [facility] Comment on above: Performed By: #### C MP, ADIFF, CBC, GFR, PBNP, ANEU #### [address] [address] Basophils/100 WBC (Bld) 1.1 % Normal 0.0-2.5 [facility] Comment on above: Performed By: #### C MP, ADIFF, CBC, GFR, PBNP, ANEU #### [address] [address] Eosinophil, Absolute 0.1 10 3/mcL Normal 0.0-0.7 [facility] Comment on above: Performed By: #### C MP, ADIFF, CBC, GFR, PBNP, ANEU #### [address] [address] Eosinophils/100 WBC (Bld) 1.4 % Normal 0.0-7.0 [facility] Comment on above: Performed By: #### C MP, ADIFF, CBC, GFR, PBNP, ANEU #### [address] [address] Lymphocyte, Absolute 1.7 10 3/mcL Normal 0.9-4.3 [facility] Comment on above: Performed By: #### C MP, ADIFF, CBC, GFR, PBNP, ANEU #### [address] [address] Lymphocytes/100 WBC (Bld) 20.9 % Normal 20.0-40.0 [facility] Comment on above: Performed By: #### C MP, ADIFF, CBC, GFR, PBNP, ANEU #### [address] [address] Monocyte, Absolute 0.5 10 3/mcL Normal 0.1-1.4 [facility] Comment on above: Performed By: #### C MP, ADIFF, CBC, GFR, PBNP, ANEU #### [address] [address] Monocytes/100 WBC (Bld) 6.0 % Normal 2.0-13.0 [facility] Comment on above: Performed By: #### C MP, ADIFF, CBC, GFR, PBNP, ANEU #### [address] [address] Neutrophils/100 WBC (Bld) 70.6 % Normal 50.0-75.0 [facility] Comment on above: Performed By: #### C MP, ADIFF, CBC, GFR, PBNP, ANEU #### [address] [address] .GFRon 12-15-2023 GFR 62 ml/min/1.73sqm Normal [facility] Comment on above: Result Comment: GFR [...] ADIFF, CBC, GFR, PBNP, ANEU #### [address] [address] GFR Non- 52 ml/min/1.73sqm Normal [facility] Comment on above: Result Comment: GFR [...] ADIFF, CBC, GFR, PBNP, ANEU #### [address] [address] .NEUABSon 12-15-2023 Neutrophil, Absolute 5.8 10 3/mcL Normal 2.3-8.1 [facility] Comment on above: Performed By: #### C MP, ADIFF, CBC, GFR, PBNP, ANEU #### [address] [address] CBCon 12-15-2023 Erythrocyte distribution width (RBC) [Ratio] 14.2 % Normal 11.5-15.5 [facility] Comment on above: Performed By: #### C MP, ADIFF, CBC, GFR, PBNP, ANEU #### [address] [address] Hematocrit (Bld) [Volume fraction] 34.6 % Normal 34.0-46.0 [facility] Comment on above: Performed By: #### C MP, ADIFF, CBC, GFR, PBNP, ANEU #### [address] [address] Hgb 11.7 G/dL Low 12.0-16.0 [facility] Comment on above: Performed By: #### C MP, ADIFF, CBC, GFR, PBNP, ANEU #### [address] [address] MCH (RBC) [Entitic mass] 28.7 pg Normal 27.0-33.0 [facility] Comment on above: Performed By: #### C MP, ADIFF, CBC, GFR, PBNP, ANEU #### [address] [address] MCHC 33.9 G/dL Normal 32.0-36.0 [facility] Comment on above: Performed By: #### C MP, ADIFF, CBC, GFR, PBNP, ANEU #### [place] [address] MCV (RBC) [Entitic vol] 84.8 fL Normal 80.0-99.0 [facility] Comment on above: Performed By: #### C MP, ADIFF, CBC, GFR, PBNP, ANEU #### [place] [address] Platelet 363 10 3/mcL Normal 150-450 [facility] Comment on above: Performed By: #### C MP, ADIFF, CBC, GFR, PBNP, ANEU #### [place] [address] Platelet mean volume (Bld) [Entitic vol] 7.4 fL Normal 6.6-10.5 [facility] Comment on above: Performed By: #### C MP, ADIFF, CBC, GFR, PBNP, ANEU #### [place] [phone] RBC 4.08 10 6/mcL Low 4.10-5.30 [facility] Comment on above: Performed By: #### C MP, ADIFF, CBC, GFR, PBNP, ANEU #### [place] [phone] WBC 8.3 10 3/mcL Normal 4.5-10.8 [facility] Comment on above: Performed By: #### C MP, ADIFF, CBC, GFR, PBNP, ANEU #### [place] [address]63127 CMPon 12-15-2023 Albumin Level 3.9 G/dL Normal 3.4-4.8 [facility] Comment on above: Performed By: #### C MP, ADIFF, CBC, GFR, PBNP, ANEU #### [address] [address] Albumin/Globulin [Mass ratio] 1.4 {ratio} Normal 1.1-2.5 [facility] Comment on above: Performed By: #### C MP, ADIFF, CBC, GFR, PBNP, ANEU #### [place] [address] ALP [Catalytic activity/Vol] 72 U/L Normal 40-135 [facility] Comment on above: Performed By: #### C MP, ADIFF, CBC, GFR, PBNP, ANEU #### [place] [address] ALT [Catalytic activity/Vol] 26 U/L Normal 14-59 [facility] Comment on above: Performed By: #### C MP, ADIFF, CBC, GFR, PBNP, ANEU #### [place] [address] AST [Catalytic activity/Vol] 18 U/L Normal 10-40 [facility] Comment on above: Performed By: #### C MP, ADIFF, CBC, GFR, PBNP, ANEU #### [place] 763127 Bili Total 0.4 mg/dL Normal 0.2-1.0 [facility] Comment on above: Result Comment: Use of this assay is not recommended for patients undergoing treatment with eltrombopag due to the potential for falsely elevated results. Performed By: #### C MP, ADIFF, CBC, GFR, PBNP, ANEU #### [place] [phone] BUN/Creatinine Ratio 20 ratio Normal 7-27 [facility] Comment on above: Performed By: #### C MP, ADIFF, CBC, GFR, PBNP, ANEU #### [address] [address] Calcium [Mass/Vol] 10.8 mg/dL High 8.4-10.2 [facility] Comment on above: Performed By: #### C MP, ADIFF, CBC, GFR, PBNP, ANEU #### [address] [address] Chloride [Moles/Vol] 104 mmol/L Normal 98-107 [facility] Comment on above: Performed By: #### C MP, ADIFF, CBC, GFR, PBNP, ANEU #### [address] [address] CO2 [Moles/Vol] 30 mmol/L Normal 23-31 [facility] Comment on above: Performed By: #### C MP, ADIFF, CBC, GFR, PBNP, ANEU #### [place] [address] Creatinine [Mass/Vol] 1.02 mg/dL Normal 0.55-1.02 [facility] Comment on above: Result Comment: Test ing performed on Siemens Dimension EXL analyzer using a modified kinetic Dora technique. Performed By: #### C MP, ADIFF, CBC, GFR, PBNP, ANEU #### [address] [address] Electrolyte Balance 7.0 mEq/L Normal 4.0-15.0 [facility] Comment on above: Performed By: #### C MP, ADIFF, CBC, GFR, PBNP, ANEU #### [address] [address] Globulin 2.8 G/dL Normal [facility] Comment on above: Performed By: #### C MP, ADIFF, CBC, GFR, PBNP, ANEU #### [address] [address] Glucose [Mass/Vol] 105 mg/dL Normal 83-110 [facility] Comment on above: Performed By: #### C MP, ADIFF, CBC, GFR, PBNP, ANEU #### [address] [address] Potassium [Moles/Vol] 4.2 mmol/L Normal 3.5-5.1 [facility] Comment on above: Performed By: #### C MP, ADIFF, CBC, GFR, PBNP, ANEU #### [address] [address] Sodium [Moles/Vol] 141 mmol/L Normal 136-145 [facility] Comment on above: Performed By: #### C MP, ADIFF, CBC, GFR, PBNP, ANEU #### [address] [address] Total Protein 6.7 G/dL Normal 6.4-8.2 [facility] Comment on above: Performed By: #### C MP, ADIFF, CBC, GFR, PBNP, ANEU #### [address] [address] Urea nitrogen [Mass/Vol] 20 mg/dL High 7-18 [facility] Comment on above: Performed By: #### C MP, ADIFF, CBC, GFR, PBNP, ANEU #### [address] [address] Lucretia 12-15-2023 Ferritin [Mass/Vol] 197.0 ng/mL Normal 8.0-252.0 [facility] Comment on above: Performed By: #### F ES, FERR ####[place] [address]#### B12, FOL ####[address] [address] FESon 12-15-2023 Iron [Mass/Vol] 44 ug/dL Low 50-170 [facility] Comment on above: Performed By: #### F ES, FERR ####[address] [address]#### B12, FOL ####[place] [address] Iron Sat 15 % Normal [facility] Comment on above: Performed By: #### F ES, FERR ####[address] [place], [place] [address]#### B12, FOL ####[place] [address] [place] [address] TIBC 300 mcg/dL Normal 250-450 [facility] Comment on above: Performed By: #### F ES, FERR ####[address] [place], [place] [address]#### B12, FOL ####[place] [address] LABORATORYOrdered By: SYSTEM SYSTEM on 12-15-2023 Albumin [...] Culture Urine No growth at 48 hours. [facility] PBNPon 12-15-2023 Natriuretic peptide B (Bld) [Mass/Vol] 1968 pg/mL High 0-450 [facility] Comment on above: Result Comment: NT-p roBNP results of less than 300 pg/mL effectively rules out acute congestive heart failure with 99% negative predictive value. Performed By: #### C MP, ADIFF, CBC, GFR, PBNP, ANEU ####[facility] [place] [address] LABORATORYOrdered By: Domingo Masterson on 12-09-2023 Appearance [...] SS UAon 12-09-2023 Color (U) Yellow Normal [facility] Comment on above: Performed By: #### U A ####[place] [address] [place] [address] Glucose (U) [Mass/Vol] Negative Normal Negative [facility] Comment on above: Performed By: #### U A ####[place] [address] [place] [address] Ketones Ql (U) Negative Normal Negative [facility] Comment on above: Performed By: #### U A ####[place] [address] [place] [address]75447 UA Appear Clear Normal Clear [facility] Comment on above: Performed By: #### U A ####[place] [address] [place] [address] UA Blood Negative Normal Negative [facility] Comment on above: Performed By: #### U A ####[place] [address] [place], [place] [address] UA Leuk Est Negative Normal Negative [facility] Comment on above: Performed By: #### U A ####[facility] [place] 075447 UA Nitrite Negative Normal Negative [facility] Comment on above: Performed By: #### U A ####[facility] [place] 075447 UA pH 7.5 Normal 5.0 - 8.0 [facility] Comment on above: Performed By: #### U A ####[place] [address] [place], [place] [address] UA Protein Negative Normal Negative [facility] Comment on above: Performed By: #### U A ####[address] [place], [place] [address] UA Spec Grav 1.020 Normal 1.015-1.025 [facility] Comment on above: Performed By: #### U A ####[address] [place], [place] [address] UA Specimen Type Clean Catch Normal [facility] Comment on above: Performed By: #### U A ####[address] [place], [place] [address] UA Urobilinogen 0.2 E.U./dL Normal 0.2-1.0 [facility] Comment on above: Performed By: #### U A ####[place] [address] [place], [place] [address] Urobilinogen (U) [Mass/Vol] Negative Normal Negative [facility] Comment on above: Performed By: #### U A ####[facility] [place], [place] [address] XR HIP RIGHT W/PELVIS 4 VIEW Son [...] 11/29/2023 11:51:51 AM Ordering Provider: SONNY STAHL [facility] .GFRon 07-08-2023 GFR 63 ml/min/1.73sqm Normal [facility] ([place]) Comment on above: Result Comment: GFR Population [...] A1C, ANEU, CBC, ADIFF, BMP #### [address] [address] GFR Non- 52 ml/min/1.73sqm Normal [facility] ([place]) Comment on above: Result Comment: GFR Population [...] A1C, ANEU, CBC, ADIFF, BMP #### [address] [address] BMPon 07-08-2023 BUN/Creatinine Ratio 19 ratio Normal 7-27 [facility] ([place]) Comment on above: Performed By: #### G FR, A1C, ANEU, CBC, ADIFF, BMP #### [address] [address] Calcium [Mass/Vol] 9.6 mg/dL Normal 8.4-10.2 [facility] ([place]) Comment on above: Performed By: #### G FR, A1C, ANEU, CBC, ADIFF, BMP #### [address] [address] Chloride [Moles/Vol] 106 mmol/L Normal 98-107 [facility] ([place]) Comment on above: Performed By: #### G FR, A1C, ANEU, CBC, ADIFF, BMP #### [address] [address] CO2 [Moles/Vol] 29 mmol/L Normal 23-31 [facility] ([place]) Comment on above: Performed By: #### G FR, A1C, ANEU, CBC, ADIFF, BMP #### [address] [address] Creatinine [Mass/Vol] 1.02 mg/dL Normal 0.55-1.02 [facility] ([place]) Comment on above: Performed By: #### G FR, A1C, ANEU, CBC, ADIFF, BMP #### [address] [address] Electrolyte Balance 9.0 mEq/L Normal 4.0-15.0 [facility] ([place]) Comment on above: Performed By: #### G FR, A1C, ANEU, CBC, ADIFF, BMP #### [address] [address] Glucose [Mass/Vol] 118 mg/dL High 83-110 [facility] ([place]) Comment on above: Performed By: #### G FR, A1C, ANEU, CBC, ADIFF, BMP #### [address] [address] Potassium [Moles/Vol] 3.7 mmol/L Normal 3.5-5.1 [facility] ([place]) Comment on above: Performed By: #### G FR, A1C, ANEU, CBC, ADIFF, BMP #### [address] [address] Sodium [Moles/Vol] 144 mmol/L Normal 136-145 [facility] ([place]) Comment on above: Performed By: #### G FR, A1C, ANEU, CBC, ADIFF, BMP #### [facility] [address] [place], [place] [address] Urea nitrogen [Mass/Vol] 19 mg/dL High 7-18 [facility] ([place]) Comment on above: Performed By: #### G FR, A1C, ANEU, CBC, ADIFF, BMP #### [facility] [address] [place], [place] [address] LABORATORYOrdered By: SYSTEM SYSTEM on 07-08-2023 Calcium [...] 04/14/2023 10:35:22 AM Ordering Provider: MAHAD Geronimo [facility] ([place]) METon 04-14-2023 Methylmalonic Acid 340 nmol/L Normal 0-378 [facility] ([place]) Comment on above: Result Comment: This test was developed and its performance characteristics determined by [facility]. It has not been cleared or approved by the Food and Drug Administration. Performed At: [facility] [id number] Hima Lieberman MD Ph:[phone] Performed By: #### G FR, A1C, ANEU, CBC, ADIFF, BMP #### [place] [address] B12on 04-07-2023 Cobalamin (Vitamin B12) [Mass/Vol] 600 pg/mL Normal 211-911 [facility] ([place]) Comment on above: Performed By: #### F OL, B12 #### [place] [address] #### FT4, [id number], TSH #### [place] [id number] FOLon 04-07-2023 Folate >48.00 High 5.38-24.00 [facility] ([place]) Comment on above: Performed By: #### F OL, B12 #### [place] [address] #### FT4, [id number], TSH #### [place] [address] FT4on 04-07-2023 Free T4 [Mass/Vol] 0.99 ng/dL Normal 0.76-1.46 [facility] ([place]) Comment on above: Performed By: #### F OL, B12 #### [place] [address] #### FT4, [id number], TSH #### [address] [address] LABORATORYOrdered By: SYSTEM SYSTEM on 04-07-2023 Cobalamin [...] 04-07-2023 TSH Qn 1.65 m[IU]/L Normal 0.36-3.74 [facility] ([place]) Comment on above: Performed By: #### F OL, B12 #### [place] [address] #### FT4, [id number], TSH #### [address] [address] .Auto Diffon 03-10-2023 Basophil, Absolute 0.1 10 3/mcL Normal 0.0-0.2 [facility] ([place]) Comment on above: Performed By: #### G FR, A1C, ANEU, CBC, ADIFF, BMP #### [address] [address] Basophils/100 WBC (Bld) 1.2 % Normal 0.0-2.5 [facility] ([place]) Comment on above: Performed By: #### G FR, A1C, ANEU, CBC, ADIFF, BMP #### [address] [address] Eosinophil, Absolute 0.1 10 3/mcL Normal 0.0-0.4 [facility] ([place]) Comment on above: Performed By: #### G FR, A1C, ANEU, CBC, ADIFF, BMP #### [address] [address] Eosinophils/100 WBC (Bld) 1.6 % Normal 0.0-7.0 [facility] ([place]) Comment on above: Performed By: #### G FR, A1C, ANEU, CBC, ADIFF, BMP #### [address] [address] Lymphocyte, Absolute 1.9 10 3/mcL Normal 0.8-3.9 [facility] ([place]) Comment on above: Performed By: #### G FR, A1C, ANEU, CBC, ADIFF, BMP #### [address] [address] Lymphocytes/100 WBC (Bld) 23.7 % Normal 10.0-50.0 [facility] ([place]) Comment on above: Performed By: #### G FR, A1C, ANEU, CBC, ADIFF, BMP #### [address] [address] Monocyte, Absolute 0.6 10 3/mcL Normal 0.2-1.0 [facility] ([place]) Comment on above: Performed By: #### G FR, A1C, ANEU, CBC, ADIFF, BMP #### [address] [address] Monocytes/100 WBC (Bld) 7.8 % Normal 1.7-13.0 [facility]placed by [facility] ([place]) Comment on above: Performed By: #### G FR, A1C, ANEU, CBC, ADIFF, BMP #### [address] [address] Neutrophils/100 WBC (Bld) 65.7 % Normal 37.0-80.0 [facility] ([place]) Comment on above: Performed By: #### G FR, A1C, ANEU, CBC, ADIFF, BMP #### [address] [address] .GFRon 03-10-2023 GFR 63 ml/min/1.73sqm Normal [facility] ([place]) Comment on above: Result Comment: GFR Population [...] A1C, ANEU, CBC, ADIFF, BMP #### [address] [address] GFR Non- 52 ml/min/1.73sqm Normal [facility] ([place]) Comment on above: Result Comment: GFR Population [...] A1C, ANEU, CBC, ADIFF, BMP #### [address] [address] .NEUABSon 03-10-2023 Neutrophil, Absolute 5.2 10 3/mcL Normal 2.9-6.2 [facility] ([place]) Comment on above: Performed By: #### G FR, A1C, ANEU, CBC, ADIFF, BMP #### [address] [address] A1Con 03-10-2023 HbA1c (Bld) [Mass fraction] 5.6 % Normal 4.3-6.4 [facility] ([place]) Comment on above: Performed By: #### G FR, A1C, ANEU, CBC, ADIFF, BMP #### [address] [address] CBCon 03-10-2023 Erythrocyte distribution width (RBC) [Ratio] 14.7 % High 11.5-14.5 [facility] ([place]) Comment on above: Performed By: #### G FR, A1C, ANEU, CBC, ADIFF, BMP #### [address] [address] Hematocrit (Bld) [Volume fraction] 35.6 % Low 37.0-47.0 [facility] ([place]) Comment on above: Performed By: #### G FR, A1C, ANEU, CBC, ADIFF, BMP #### [place] 763127 Hgb 12.1 G/dL Normal 12.0-16.0 [facility] ([place]) Comment on above: Performed By: #### G FR, A1C, ANEU, CBC, ADIFF, BMP #### [address] [address] MCH (RBC) [Entitic mass] 27.8 pg Normal 27.0-31.2 [facility] ([place]) Comment on above: Performed By: #### G FR, A1C, ANEU, CBC, ADIFF, BMP #### [address] [address] MCHC 34.1 G/dL Normal 33.0-37.0 [facility] ([place]) Comment on above: Performed By: #### G FR, A1C, ANEU, CBC, ADIFF, BMP #### [address] [address] MCV (RBC) [Entitic vol] 81.7 fL Normal 80.0-94.0 [facility] ([place]) Comment on above: Performed By: #### G FR, A1C, ANEU, CBC, ADIFF, BMP #### [address] [address] Platelet 300 10 3/mcL Normal 130-400 [facility] ([place]) Comment on above: Performed By: #### G FR, A1C, ANEU, CBC, ADIFF, BMP #### [address] [address] Platelet mean volume (Bld) [Entitic vol] 8.0 fL Normal 7.4-10.4 [facility] ([place]) Comment on above: Performed By: #### G FR, A1C, ANEU, CBC, ADIFF, BMP #### [address] [address] RBC 4.35 10 6/mcL Normal 4.20-5.40 [facility] ([place]) Comment on above: Performed By: #### G FR, A1C, ANEU, CBC, ADIFF, BMP #### [address] [address] WBC 8.0 10 3/mcL Normal 4.6-10.8 [facility] ([place]) Comment on above: Performed By: #### G FR, A1C, ANEU, CBC, ADIFF, BMP #### [address] [address] CMPon 03-10-2023 Chloride [Moles/Vol] 102 mmol/L Normal 98-107 [facility] ([place]) Comment on above: Performed By: #### G FR, A1C, ANEU, CBC, ADIFF, BMP #### [address] [address] Electrolyte Balance 10.0 mEq/L Normal 4.0-15.0 [facility] ([place]) Comment on above: Performed By: #### G FR, A1C, ANEU, CBC, ADIFF, BMP #### [address] [address] Potassium [Moles/Vol] 4.3 mmol/L Normal 3.5-5.1 [facility] ([place]) Comment on above: Performed By: #### G FR, A1C, ANEU, CBC, ADIFF, BMP #### [address] [address] Sodium [Moles/Vol] 141 mmol/L Normal 136-145 [facility] ([place]) Comment on above: Performed By: #### G FR, A1C, ANEU, CBC, ADIFF, BMP #### [address] [address] Albumin Level 3.7 G/dL Normal 3.4-4.8 [facility] ([place]) Comment on above: Performed By: #### G FR, A1C, ANEU, CBC, ADIFF, BMP #### [address] [address] Albumin/Globulin [Mass ratio] 1.1 {ratio} Normal 1.1-2.5 [facility] ([place]) Comment on above: Performed By: #### G FR, A1C, ANEU, CBC, ADIFF, BMP #### [address] [address] ALP [Catalytic activity/Vol] 79 U/L Normal 40-135 [facility] ([place]) Comment on above: Performed By: #### G FR, A1C, ANEU, CBC, ADIFF, BMP #### [address] [address] ALT [Catalytic activity/Vol] 24 U/L Normal 14-59 [facility] ([place]) Comment on above: Performed By: #### G FR, A1C, ANEU, CBC, ADIFF, BMP #### [address] [address] AST [Catalytic activity/Vol] 12 U/L Normal 10-40 [facility] ([place]) Comment on above: Performed By: #### G FR, A1C, ANEU, CBC, ADIFF, BMP #### [address] [address] Bili Total 0.3 mg/dL Normal 0.2-1.0 [facility] ([place]) Comment on above: Result Comment: Use of this assay is not recommended for patients undergoing treatment with eltrombopag due to the potential for falsely elevated results. Performed By: #### G FR, A1C, ANEU, CBC, ADIFF, BMP #### [address] [address] BUN/Creatinine Ratio 25 ratio Normal 7-27 [facility] ([place]) Comment on above: Performed By: #### G FR, A1C, ANEU, CBC, ADIFF, BMP #### [address] [address] Calcium [Mass/Vol] 10.1 mg/dL Normal 8.4-10.2 [facility] ([place]) Comment on above: Performed By: #### G FR, A1C, ANEU, CBC, ADIFF, BMP #### [address] [address] CO2 [Moles/Vol] 29 mmol/L Normal 23-31 [facility] ([place]) Comment on above: Performed By: #### G FR, A1C, ANEU, CBC, ADIFF, BMP #### [address] [address] Creatinine [Mass/Vol] 1.02 mg/dL Normal 0.55-1.02 [facility] ([place]) Comment on above: Performed By: #### G FR, A1C, ANEU, CBC, ADIFF, BMP #### [address] [address] Globulin 3.3 G/dL Normal [facility] ([place]) Comment on above: Performed By: #### G FR, A1C, ANEU, CBC, ADIFF, BMP #### [address] [address] Glucose [Mass/Vol] 118 mg/dL High 83-110 [facility] ([place]) Comment on above: Performed By: #### G FR, A1C, ANEU, CBC, ADIFF, BMP #### [address] [address] Total Protein 7.0 G/dL Normal 6.4-8.2 [facility] ([place]) Comment on above: Performed By: #### G FR, A1C, ANEU, CBC, ADIFF, BMP #### [address] [address] Urea nitrogen [Mass/Vol] 26 mg/dL High 7-18 [facility] ([place]) Comment on above: Performed By: #### G FR, A1C, ANEU, CBC, ADIFF, BMP #### [address] [address] LIPIDon 03-10-2023 Cholesterol [Mass/Vol] 214 mg/dL High 0-200 [facility] ([place]) Comment on above: Result Comment: Chol esterol Reference Interval: Less than 200 Desirable 200-239 Borderline high risk 240 and above High risk Performed By: #### G FR, A1C, ANEU, CBC, ADIFF, BMP #### [address] [address] Cholesterol in HDL [Mass/Vol] 62 mg/dL High 40-60 [facility] ([place]) Comment on above: Performed By: #### G FR, A1C, ANEU, CBC, ADIFF, BMP #### [place] [address] Cholesterol in LDL [Mass/Vol] 111 mg/dL Normal 0-130 [facility] ([place]) Comment on above: Performed By: #### G FR, A1C, ANEU, CBC, ADIFF, BMP #### [address] [address] Triglyceride [Mass/Vol] 205 mg/dL High 0-150 A [facility] ([place]) Comment on above: Result Comment: Trig lyceride Reference Interval: Less than 150 Normal 150-199 Borderline high risk 200-499 High risk 500 or higher Very high risk Performed By: #### G FR, A1C, ANEU, CBC, ADIFF, BMP #### [place] [address] PHOSon 03-10-2023 Phosphate [Mass/Vol] 3.2 mg/dL Normal 2.3-4.1 [facility] ([place]) Comment on above: Performed By: #### G FR, A1C, ANEU, CBC, ADIFF, BMP #### [place] [address] PTHon 03-10-2023 PTH, Intact 78.2 pg/mL Normal 18.5-88.0 [facility] ([place]) Comment on above: Performed By: #### G FR, A1C, ANEU, CBC, ADIFF, BMP #### [address] [address] VIon 03-10-2023 Vit. D 25-Hydroxy 32.1 ng/mL Normal [facility] ([place]) Comment on above: Result Comment: Inte rpretive Values Based on Total 25(OH) Vitamin D: Deficient <20 ng/mL Insufficient 20 - <30 ng/mL Sufficient 30-100 ng/mL Performed By: #### G FR, A1C, ANEU, CBC, ADIFF, BMP #### [address] [address] BD BONE DENSITY DEXA AXIAL S [facility] 12-14-2022 BD BONE DENSITY DEXA AXIAL SKELETON [...] 12/14/2022 9:37:25 AM Ordering Provider: LARRY Geronimo [facility] ([place]) .Auto Diffon 09-16-2022 Basophil, Absolute 0.1 10 3/mcL Normal 0.0-0.2 [facility] ([place]) Comment on above: Performed By: #### G FR, A1C, ANEU, CBC, ADIFF, BMP #### [address] [address] Basophils/100 WBC (Bld) 0.8 % Normal 0.0-2.5 A [facility] ([place]) Comment on above: Performed By: #### G FR, A1C, ANEU, CBC, ADIFF, BMP #### [address] [address] Eosinophil, Absolute 0.2 10 3/mcL Normal 0.0-0.4 [facility] ([place]) Comment on above: Performed By: #### G FR, A1C, ANEU, CBC, ADIFF, BMP #### [address] [address] Eosinophils/100 WBC (Bld) 2.1 % Normal 0.0-7.0 [facility] ([place]) Comment on above: Performed By: #### G FR, A1C, ANEU, CBC, ADIFF, BMP #### [address] [address] Lymphocyte, Absolute 2.0 10 3/mcL Normal 0.8-3.9 [facility] ([place]) Comment on above: Performed By: #### G FR, A1C, ANEU, CBC, ADIFF, BMP #### [address] [address] Lymphocytes/100 WBC (Bld) 22.9 % Normal 10.0-50.0 [facility] ([place]) Comment on above: Performed By: #### G FR, A1C, ANEU, CBC, ADIFF, BMP #### [address] [address] Monocyte, Absolute 0.5 10 3/mcL Normal 0.2-1.0 [facility] ([place]) Comment on above: Performed By: #### G FR, A1C, ANEU, CBC, ADIFF, BMP #### [address] [address] Monocytes/100 WBC (Bld) 6.4 % Normal 1.7-13.0 A [facility] ([place]) Comment on above: Performed By: #### G FR, A1C, ANEU, CBC, ADIFF, BMP #### [address] [address] Neutrophils/100 WBC (Bld) 67.8 % Normal 37.0-80.0 [facility] ([place]) Comment on above: Performed By: #### G FR, A1C, ANEU, CBC, ADIFF, BMP #### [address] [address] .GFRon 09-16-2022 GFR Non- 48 ml/min/1.73sqm Normal [facility] ([place]) Comment on above: Result Comment: GFR Population [...] A1C, ANEU, CBC, ADIFF, BMP #### [address] [address] GFR 59 ml/min/1.73sqm Normal [facility] ([place]) Comment on above: Result Comment: GFR Population [...] A1C, ANEU, CBC, ADIFF, BMP #### [address] [address] .NEUABSon 09-16-2022 Neutrophil, Absolute 5.8 10 3/mcL Normal 2.9-6.2 [facility] ([place]) Comment on above: Performed By: #### G FR, A1C, ANEU, CBC, ADIFF, BMP #### [address] [address] A1Con 09-16-2022 HbA1c (Bld) [Mass fraction] 5.7 % Normal 4.3-6.4 [facility] ([place]) Comment on above: Performed By: #### G FR, A1C, ANEU, CBC, ADIFF, BMP #### [address] [address] BMPon 09-16-2022 BUN/Creatinine Ratio 27 ratio Normal 7-27 [facility] ([place]) Comment on above: Performed By: #### G FR, A1C, ANEU, CBC, ADIFF, BMP #### [address] [address] Calcium [Mass/Vol] 9.8 mg/dL Normal 8.4-10.2 [facility] ([place]) Comment on above: Performed By: #### G FR, A1C, ANEU, CBC, ADIFF, BMP #### [address] [address] Chloride [Moles/Vol] 106 mmol/L Normal 98-107 [facility] ([place]) Comment on above: Performed By: #### G FR, A1C, ANEU, CBC, ADIFF, BMP #### [address] [address] CO2 [Moles/Vol] 29 mmol/L Normal 23-31 [facility] ([place]) Comment on above: Performed By: #### G FR, A1C, ANEU, CBC, ADIFF, BMP #### [address] [address] Creatinine [Mass/Vol] 1.08 mg/dL High 0.55-1.02 [facility] ([place]) Comment on above: Performed By: #### G FR, A1C, ANEU, CBC, ADIFF, BMP #### [address] [address] Electrolyte Balance 8.0 mEq/L Normal 4.0-15.0 [facility] ([place]) Comment on above: Performed By: #### G FR, A1C, ANEU, CBC, ADIFF, BMP #### [address] [address] Glucose [Mass/Vol] 125 mg/dL High 83-110 [facility] ([place]) Comment on above: Performed By: #### G FR, A1C, ANEU, CBC, ADIFF, BMP #### [address] [address] Potassium [Moles/Vol] 4.5 mmol/L Normal 3.5-5.1 [facility] ([place]) Comment on above: Performed By: #### G FR, A1C, ANEU, CBC, ADIFF, BMP #### [address] [address] Sodium [Moles/Vol] 143 mmol/L Normal 136-145 [facility] ([place]) Comment on above: Performed By: #### G FR, A1C, ANEU, CBC, ADIFF, BMP #### [address] [address] Urea nitrogen [Mass/Vol] 29 mg/dL High 7-18 [facility] ([place]) Comment on above: Performed By: #### G FR, A1C, ANEU, CBC, ADIFF, BMP #### [address] [address] CBCon 09-16-2022 Erythrocyte distribution width (RBC) [Ratio] 14.6 % High 11.5-14.5 [facility] ([place]) Comment on above: Performed By: #### G FR, A1C, ANEU, CBC, ADIFF, BMP #### [address] [address] Hematocrit (Bld) [Volume fraction] 33.9 % Low 37.0-47.0 [facility] ([place]) Comment on above: Performed By: #### G FR, A1C, ANEU, CBC, ADIFF, BMP #### [address] [address] Hgb 11.2 G/dL Low 12.0-16.0 [facility] ([place]) Comment on above: Performed By: #### G FR, A1C, ANEU, CBC, ADIFF, BMP #### [address] [address] MCH (RBC) [Entitic mass] 27.0 pg Normal 27.0-31.2 [facility] ([place]) Comment on above: Performed By: #### G FR, A1C, ANEU, CBC, ADIFF, BMP #### [place] [address] MCHC 33.1 G/dL Normal 33.0-37.0 [facility] ([place]) Comment on above: Performed By: #### G FR, A1C, ANEU, CBC, ADIFF, BMP #### [place] [address] MCV (RBC) [Entitic vol] 81.6 fL Normal 80.0-94.0 [facility] ([place]) Comment on above: Performed By: #### G FR, A1C, ANEU, CBC, ADIFF, BMP #### [address] [address] Platelet 275 10 3/mcL Normal 130-400 [facility] ([place]) Comment on above: Performed By: #### G FR, A1C, ANEU, CBC, ADIFF, BMP #### [place] [id number] Platelet mean volume (Bld) [Entitic vol] 8.2 fL Normal 7.4-10.4 [facility] ([place]) Comment on above: Performed By: #### G FR, A1C, ANEU, CBC, ADIFF, BMP #### [address] [address] RBC 4.15 10 6/mcL Low 4.20-5.40 [facility] ([place]) Comment on above: Performed By: #### G FR, A1C, ANEU, CBC, ADIFF, BMP #### [place] [address] [place], [place] [address] WBC 8.5 10 3/mcL Normal 4.6-10.8 [facility] ([place]) Comment on above: Performed By: #### G FR, A1C, ANEU, CBC, ADIFF, BMP #### [place] [address] [place], [place] [address] LABORATORYOrdered By: SYSTEM SYSTEM on 06-19-2022 Basophils (Bld) [#/Vol] 0.1 103/mcL Invalid Interpretation Code 0.0 - 0.3 10^3/mcL Workflow SS Basophils/100 WBC (Bld) 0.9 % Invalid Interpretation Code 0.0 - 2.5 % AH Workflow SS Calcium [Mass/Vol] 10.0 mg/dL Invalid Interpretation Code 8.7 - 10.4 mg/dL ADM SS Chloride [Moles/Vol] 108 mmol/L Invalid Interpretation Code 98 - 110 mEq/L ADM SS CO2 [Moles/Vol] 28 mmol/L Invalid [...] Invalid Interpretation Code 11.5 - 15.5 % AH Workflow SS GFR/1.73 sq M.predicted among blacks MDRD (S/P/Bld) [Vol rate/Area] ml/min/1.73sqm Invalid Interpretation Code Chemistry S GFR/1.73 sq M.predicted among non-blacks MDRD (S/P/Bld) [Vol rate/Area] ml/min/1.73sqm Invalid Interpretation Code Chemistry S Glucose [Mass/Vol] 117 mg/dL Invalid Interpretation Code 82 - 115 mg/dL ADM SS Hematocrit (Bld) [Volume fraction] 33.6 % Invalid Interpretation Code 34.0 - 46.0 % AH Workflow SS Hemoglobin (Bld) [Mass/Vol] 11.2 G/dL Invalid Interpretation Code 12.0 - 16.0 G/dL AH Workflow SS Lymphocytes (Bld) [#/Vol] 1.6 103/mcL Invalid Interpretation Code 0.9 - 4.3 10^3/mcL Workflow SS Lymphocytes/100 WBC (Bld) 24.2 % Invalid Interpretation Code 20.0 - 40.0 % Workflow SS MCH (RBC) [Entitic mass] 27.5 pg Invalid Interpretation Code 27.0 - 33.0 pg AH Workflow SS MCHC 33.4 G/dL Invalid Interpretation Code 32.0 - 36.0 G/dL Workflow SS MCV (RBC) [Entitic vol] 82.2 fL Invalid Interpretation Code 80.0 - 99.0 fL Workflow SS Monocytes (Bld) [#/Vol] 0.5 103/mcL Invalid Interpretation Code 0.1 - 1.4 10^3/mcL Workflow SS Monocytes/100 WBC (Bld) 8.1 % Invalid Interpretation Code 2.0 - 13.0 % Workflow SS Neutrophils (Bld) [#/Vol] 4.1 103/mcL Invalid Interpretation Code 2.3 - 8.1 10^3/mcL Workflow SS Neutrophils/100 WBC (Bld) 64.0 % Invalid Interpretation Code 50.0 - 75.0 % Workflow SS Platelet mean volume (Bld) [Entitic vol] 7.6 fL Invalid Interpretation Code 6.6 - 10.5 fL Workflow SS Platelets (Bld) [#/Vol] 287 103/mcL Invalid Interpretation Code 150 - 450 10^3/mcL AH Workflow SS Potassium [Moles/Vol] 4.2 mmol/L Invalid Interpretation Code 3.5 - 5.0 mEq/L ADM SS RBC (Bld) [#/Vol] 4.08 106/mcL [...] AH Workflow SS CNPNon 06-03-2022 CNPN Telephone (GENSWS) SHACT GARCIA ([id number]) 1940 F Date Time Provider Department 06/03/22 PAULA ALANIZ During your visit today, we recorded the following information about you: Brenton Jennings RN 06/03/2022 11:29 AM Signed Received a request from [facility] for all of Ct's left breast cancer treatment medical records. Faxed the request to medical records on [facility], fax confirmation sheet received. Brenton Jennings RN [...] Encounter Status:Closed by BRENTON JENNINGS on 06/03/22 [facility] LABORATORYOrdered By: SYSTEM SYSTEM on 04-14-2022 [...] - 8.2 G/dL AO ADM SS CNOVon 02-27-2023 CNOV Office Visit (GENSWS ) CT DALTON ([id number]) 1940 F Date Time Provider Department 04/06/22 9:30 AM PAULA ALANIZS During your visit today, we recorded the following information about you: Temperature Pulse Blood pressure Weight 97.8 degrees 109/minute 148/70 73.9 kg Height 1.575 m Mini BrookeMATILDE 04/06/2022 9:50 AM Signed REVIEW [...] stage II, s/p left breast lumpectomy/SLNBrbx in 2017. She is presently on anastrazole She denies palpable breast masses. She denies nipple discharge. She denies breast pain. She has been undergoing yearly surveillance mammograms, the most recent with abnormal findings. She underwent US guided needle core breast biopsies on 03/23/2022 at [facility]. Findings of fat necrosis, inflammation and [...] once daily. (more content not included)... Normal [facility] LABORATORYOrdered By: SYSTEM SYSTEM on 03-09-2022 Albumin [...] Catch (12/04/21 3:30 PM) Invalid Interpretation Code Auto Urine SS UA Urobilinogen 0.2 E.U./dL Invalid Interpretation Code 0.2-1.0E.U. /dL Auto Urine SS LABORATORYOrdered By: SYSTEM SYSTEM on 12-04-2021 Albumin BCP dye [Mass/Vol] 3.8 G/dL Invalid Interpretation Code 3.2 - 4.8 G/dL ADM SS Albumin/Globulin [Mass ratio] 1.4 {ratio} Invalid Interpretation Code 0.9 - 1.6 ratio ADM SS ALP [Catalytic activity/Vol] 66 U/L Invalid Interpretation Code 38 - 126 U/L ADM SS ALT No additional P-5'-P [Catalytic activity/Vol] 12 U/L Invalid Interpretation Code 10 - 49 U/L ADM SS AST [Catalytic activity/Vol] 17 U/L Invalid Interpretation Code 8 - 34 U/L ADM SS Basophils (Bld) [#/Vol] 0.0 103/mcL Invalid Interpretation Code 0.0 - 0.3 10^3/mcL Workflow SS Basophils/100 WBC (Bld) 0.6 % Invalid Interpretation Code 0.0 - 2.5 % Workflow SS Bilirubin [Mass/Vol] 0.70 mg/dL Invalid [...] 27.0 - 33.0 pg Workflow SS MCHC 34.1 G/dL Invalid Interpretation Code 32.0 - 36.0 G/dL Workflow SS MCV (RBC) [Entitic vol] 82.2 fL Invalid Interpretation Code 80.0 - 99.0 fL Workflow SS Monocytes (Bld) [#/Vol] 0.5 103/mcL Invalid Interpretation Code 0.1 - 1.4 10^3/mcL Workflow SS Monocytes/100 WBC (Bld) 6.0 % Invalid Interpretation Code 2.0 - 13.0 % Workflow SS Neutrophils (Bld) [#/Vol] 6.7 103/mcL Invalid Interpretation Code 2.3 - 8.1 10^3/mcL Workflow SS Neutrophils/100 WBC (Bld) 80.2 % Invalid Interpretation Code 50.0 - 75.0 % Workflow SS Platelet mean volume (Bld) [Entitic vol] 8.0 fL Invalid Interpretation Code 6.6 - 10.5 fL Workflow SS Platelets (Bld) [#/Vol] 251 103/mcL Invalid Interpretation Code 150 - 450 10^3/mcL AH Workflow SS Potassium [Moles/Vol] 3.6 mmol/L Invalid Interpretation Code 3.5 - 5.0 mEq/L AH ADM SS Protein [Mass/Vol] 6.5 G/dL Invalid [...] Invalid Interpretation Code 10.0 - 22.0 ratio ADM SS WBC (Bld) [#/Vol] 8.3 103/mcL Invalid Interpretation Code 4.5 - 10.8 10^3/mcL Workflow SS No Panel Informationon 12-04 Culture Urine No growth to date [facility] Microscopic examination of blood, culture Culture has been received in lab and is no growth to date. Routine cultures are held for 5 days. [facility] LABORATORYOrdered By: Rick Webber on 12-03-2021 [...] 1.006-1.029 AM Telcor Subsection Urobilinogen Qn (U) [id number] {Sara'U}/dL Invalid Interpretation Code 0.2-1.0E.U. /dL AM [...] Telcor Subsection Comment on above: Result Comment: [facility] [place], [place] [address] Perf Loc - POCT Tested at AM Invalid Interpretation Code AM Telcor Subsection Comment on above: Result Comment: [facility] [address] [place], [place] [address] Perf Loc - POCT Tested at AM Invalid Interpretation Code AM Telcor Subsection Comment on above: Result Comment: [facility] [address] [place], [place] [address] MRI BREAST WO/W IVCON BILon 03-01-2018 MRI BREAST WO/W IVCON DUNCAN * * *Final Report* * * DATE OF EXAM: Mar 01 2018 11:54AM [facility] 0773 - MRI BREAST WO/W IVCON DUNCAN / PROCEDURE REASON: N64.4-Mastodynia * * * * Physician Interpretation * * * * #[id number] - MRI BREAST WO/W IVCON DUNCAN BREAST MRI OF BOTH BREASTS: 03/01/2018 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 Short interval follow up of the lumpectomy site recommended per the prior MRI dated 05/18/2017. RESULT: Comparison is made to exam dated: 05/18/2017 breast MRI - [facility]. Interpretation of this MRI was [...] Follow-up with ACR/NCCN guidelines. Td carlson/rafael:03/01/2018 14:15:08 Manufacturing Weaver(s): RT Amanda(N)(MR), [facility] MRI BI-RADS: 2 Benign finding [...] Health, Family Medicine, and Medical/Surgical Oncology, the [facility] has carefully reviewed the data and [...] their providers when to stop screening mammograms. Swatch Maker: Rafael Transcribe Date/Time: Mar 01 2018 11:37A Dictated by : TD SANDERS MD This examination was interpreted and the report reviewed and electronically signed by: TD SANDERS MD on Mar 01 2018 2:15PM EST [id number] Normal [facility] NURSING PROGon 03-01-2018 Protein mass conc HNO ID: [id number] Author: Carla Love (Rn) Kristopher Service: Radiology [...] Summers RN March 01, 2018 10:49 AM [facility] Clinical Summary: HMSMatt IDon 01-17-2018 OOP Invalid Interpretation Code [facility] Work Phone: Office Visit: Follow-up by donnie servin, Rm: [email or web address] 01-17-2018 NEGATED: Highlighted rowMRI (magnetic resonance imaging) history of the lumbar spine on 10/20/2013 at [place] Invalid Interpretation Code [facility] Work Phone: NEGATED: Highlighted rowProtein mass conc Done Invalid Interpretation Code [facility] Work Phone: MRI BREAST WO/W IVCON BILon 05-18-2017 MRI BREAST WO/W IVCON DUNCAN * * *Final Report* * * DATE OF EXAM: May 18 2017 2:32PM [facility] 0773 - MRI BREAST WO/W IVCON DUNCAN / PROCEDURE REASON: Z13.89-Encounter for screening for other disorder * * * * Physician Interpretation * * * * #[id number] - MRI BREAST WO/W IVCON DUNCAN BREAST [...] exam was reviewed by a staff physician. gaurav Estrada M.D., M.D./rafael:05/18/2017 15:28:32 Manufacturing Weaver: Cally REESE)(Jeanine), [facility] MRI BI-RADS: 3 Probably benign finding - short term interval follow-up recommended Swatch Maker: Rafael Transcribe Date/Time: May 18 2017 2:15P Dictated by : MALLIKA PAYNE MD This examination was interpreted and the report reviewed and electronically signed by: CRICKET AMBRIZ MD on May 18 2017 3:28PM EST [id number] [facility] NURSING PROGon 05-18-2017 Protein mass conc HNO ID: [id number] Author: Ema (Rn) DONA Bai Service: PICC [...] 2017 TIME: 1:27 PM PAGER/CONTACT #: [phone] [facility] Vital Signs Date Time Vital Sign Value Performing Clinician Facility 08-26-2024 12:46-0400 Body height 167.[address] Warner Leos MD Work Phone: [place] 07-24-2024 03:24-0400 Diastolic blood pressure 69 mm[Hg] Dr. Warner Leos MD Work Phone: [place] 07-24-2024 03:24-0400 Heart rate 52 /min Dr. Warner Leos MD Work Phone: [place] 07-24-2024 03:24-0400 SaO2% (BldA) [Mass fraction] 100 % Dr. Warner Leos MD Work Phone: [place] 07-24-2024 03:24-0400 Systolic blood pressure 164 mm[Hg] Dr. Warner Leos MD Work Phone: [place] 07-24-2024 01:24-0400 Body height 167.[address] Warner Leos MD Work Phone: [place] 07-24-2024 01:24-0400 Body mass index (BMI) [Ratio] 28 kg/m2 Dr. Warner Leos MD Work Phone: [place] 07-24-2024 01:24-0400 Body temperature 98 [degF] Dr. Warner Leos MD Work Phone: [place] 07-24-2024 01:24-0400 Body weight 78.[address] Warner Leos MD Work Phone: [place] 07-24-2024 01:24-0400 Respiratory rate 16 /min Dr. Warner Leos MD Work Phone: [place] 02-10-2024 15:30-0500 Body temperature 97.52 [degF] ELDA DEL ROSARIO COBOL PROGRAMMER-SENIOR CONSUMER INSIGHTS CONSULTANT [facility] 02-10-2024 15:30-0500 Diastolic Blood Pressure Non-Invasive 72 mm[Hg] ELDA DEL ROSARIO COBOL PROGRAMMER-SENIOR CONSUMER INSIGHTS CONSULTANT [facility] 02-10-2024 15:30-0500 Heart rate 84 /min ELDA DEL ROSARIO COBOL PROGRAMMER-SENIOR CONSUMER INSIGHTS CONSULTANT [facility] 02-10-2024 15:30-0500 Reason For Taking VItal Signs ELDA DEL ROSARIO COBOL PROGRAMMER-SENIOR CONSUMER INSIGHTS CONSULTANT [facility] 02-10-2024 15:30-0500 Respiratory rate 16 /min ELDA DEL ROSARIO COBOL PROGRAMMER-SENIOR CONSUMER INSIGHTS CONSULTANT [facility] 02-10-2024 15:30-0500 Systolic Blood Pressure Non-Invasive 146 mm[Hg] ELDA DEL ROSARIO COBOL PROGRAMMER-SENIOR CONSUMER INSIGHTS CONSULTANT [facility] 02-10-2024 06:37-0500 Body temperature 97.34 [degF] ELDA DEL ROSARIO COBOL PROGRAMMER-SENIOR CONSUMER INSIGHTS CONSULTANT [facility] 02-10-2024 06:37-0500 Diastolic Blood Pressure Non-Invasive 82 mm[Hg] ELDA DEL ROSARIO COBOL PROGRAMMER-SENIOR CONSUMER INSIGHTS CONSULTANT [facility] 02-10-2024 06:37-0500 Heart rate 80 /min ELDA DEL ROSARIO COBOL PROGRAMMER-SENIOR CONSUMER INSIGHTS CONSULTANT [facility] 02-10-2024 06:37-0500 Reason For Taking VItal Signs ELDA DEL ROSARIO COBOL PROGRAMMER-SENIOR CONSUMER INSIGHTS CONSULTANT [facility] 02-10-2024 06:37-0500 Respiratory rate 14 /min ELDA DEL ROSARIO COBOL PROGRAMMER-SENIOR CONSUMER INSIGHTS CONSULTANT [facility] 02-10-2024 06:37-0500 Systolic Blood Pressure Non-Invasive 148 mm[Hg] ELDA DEL ROSARIO COBOL PROGRAMMER-SENIOR CONSUMER INSIGHTS CONSULTANT [facility] 02-10-2024 03:22-0500 Body temperature 97.52 [degF] ELDA DEL ROSARIO COBOL PROGRAMMER-SENIOR CONSUMER INSIGHTS CONSULTANT [facility] 02-10-2024 03:22-0500 Diastolic Blood Pressure Non-Invasive 81 mm[Hg] ELDA BUCKNERFF COBOL PROGRAMMER-SENIOR CONSUMER INSIGHTS CONSULTANT [facility] 02-10-2024 03:22-0500 Heart rate 81 /min ELDA DEL ROSARIO COBOL PROGRAMMER-SENIOR CONSUMER INSIGHTS CONSULTANT [facility] 02-10-2024 03:22-0500 Reason For Taking VItal Signs ELDA DEL ROSARIO COBOL PROGRAMMER-SENIOR CONSUMER INSIGHTS CONSULTANT [facility] 02-10-2024 03:22-0500 Respiratory rate 14 /min ELDA DEL ROSARIO COBOL PROGRAMMER-SENIOR CONSUMER INSIGHTS CONSULTANT [facility] 02-10-2024 03:22-0500 Systolic Blood Pressure Non-Invasive 156 mm[Hg] ELDA BUCKNERFF COBOL PROGRAMMER-SENIOR CONSUMER INSIGHTS CONSULTANT [facility] 02-09-2024 22:01-0500 Heart rate 74 /min ELDA DEL ROSARIO COBOL PROGRAMMER-SENIOR CONSUMER INSIGHTS CONSULTANT [facility] 02-09-2024 21:59-0500 Body height 152 cm ELDA DEL ROSARIO COBOL PROGRAMMER-SENIOR CONSUMER INSIGHTS CONSULTANT [facility] 02-09-2024 21:59-0500 Body weight 67 kg ELDA DEL ROSARIO COBOL PROGRAMMER-SENIOR CONSUMER INSIGHTS CONSULTANT [facility] 02-09-2024 21:59-0500 Body weight 29 kg/m2 ELDA DEL ROSARIO COBOL PROGRAMMER-SENIOR CONSUMER INSIGHTS CONSULTANT [facility] 02-09-2024 21:07-0500 Heart rate 78 /min ELDA DEL ROSARIO COBOL PROGRAMMER-SENIOR CONSUMER INSIGHTS CONSULTANT [facility] 02-09-2024 21:07-0500 Mean blood pressure 90 mm[Hg] ELDA DEL ROSARIO COBOL PROGRAMMER-SENIOR CONSUMER INSIGHTS CONSULTANT [facility] 02-09-2024 20:38-0500 Mean blood pressure 85 mm[Hg] ELDA DEL ROSARIO COBOL PROGRAMMER-SENIOR CONSUMER INSIGHTS CONSULTANT [facility] 02-09-2024 19:39-0500 Heart rate 83 /min ELDA DEL ROSARIO COBOL PROGRAMMER-SENIOR CONSUMER INSIGHTS CONSULTANT [facility] 01-21-2024 10:04-0500 Body height 160 cm INES DENNIS MD [facility] 01-21-2024 10:04-0500 Body temperature 97.52 [degF] INES DENNIS MD [facility] 01-21-2024 10:04-0500 Body weight 68.2 kg INES DENNIS MD [facility] 01-21-2024 10:04-0500 Diastolic Blood Pressure Non-Invasive 81 mm[Hg] INES DENNIS MD [facility] 01-21-2024 10:04-0500 Heart rate 85 /min INES DENNIS MD [facility] 01-21-2024 10:04-0500 Respiratory rate 18 /min INES DENNIS MD [facility] 01-21-2024 10:04-0500 Systolic Blood Pressure Non-Invasive 164 mm[Hg] INES DENNIS MD [facility] 12-09-2023 08:47-0400 Blood Pressure Location INES DENNIS MD [facility] 12-09-2023 08:47-0400 Blood Pressure Method INES DENNIS MD [facility] 12-09-2023 08:47-0400 Body temperature 98.24 [degF] INES DENNIS MD [facility] 12-09-2023 08:47-0400 Diastolic Blood Pressure Non-Invasive 91 mm[Hg] INES DENNIS MD [facility] 12-09-2023 08:47-0400 Heart rate 90 /min INES DENNIS MD [facility] 12-09-2023 08:47-0400 Respiratory rate 18 /min INES DENNIS MD [facility] 12-09-2023 08:47-0400 Systolic Blood Pressure Non-Invasive 161 mm[Hg] INES DENNIS MD [facility] 11-29-2023 12:26-0400 Diastolic Blood Pressure Non-Invasive 76 mm[Hg] SONNY STAHL DO [facility] 11-29-2023 12:26-0400 Heart rate 76 /min SONNY STAHL DO [facility] 11-29-2023 12:26-0400 Respiratory rate 18 /min SONNY STAHL DO [facility] 11-29-2023 12:26-0400 Systolic Blood Pressure Non-Invasive 164 mm[Hg] SONNY STAHL DO [facility] 11-29-2023 08:58-0400 Blood Pressure Cuff Size SONNY STAHL DO [facility] 11-29-2023 08:58-0400 Blood Pressure Location SONNY STAHL DO [facility] 11-29-2023 08:58-0400 Blood Pressure Method SONNY STAHL DO [facility] 11-29-2023 08:58-0400 Body height 155 cm SONNY STAHL DO [facility] 11-29-2023 08:58-0400 Body temperature 97.34 [degF] SONNY STAHL DO [facility] 11-29-2023 08:58-0400 Diastolic Blood Pressure Non-Invasive 83 mm[Hg] SONNY STAHL DO [facility] 11-29-2023 08:58-0400 Heart rate 84 /min SONNY STAHL DO [facility] 11-29-2023 08:58-0400 Respiratory rate 18 /min SONNY STAHL DO [facility] 11-29-2023 08:58-0400 Systolic Blood Pressure Non-Invasive 172 mm[Hg] SONNY STAHL DO [facility] 06-19-2022 12:01-0400 Blood Pressure Cuff Size DR ANISA GOMEZ MD [address] [place] [address] 06-19-2022 12:01-[address] ANISA GOMEZ MD [facility] 06-19-2022 12:01-[address] ANISA GOMEZ MD [address] [place] [address] 06-19-2022 12:01-0400 Body height [address] ANISA GOMEZ MD [address] [place] [address] 06-19-2022 12:01-0400 Body temperature 97.7 [degF] DR ANISA GOMEZ MD [address] [place] [address] 06-19-2022 12:01-0400 Body weight 76.[address] ANISA GOMEZ MD [address] [place] [address] 06-19-2022 12:01-0400 Body weight 31.88 kg/m2 DR ANISA GOMEZ MD [facility] 06-19-2022 12:01-0400 Diastolic Blood Pressure Non-Invasive [address] ANISA GOMEZ MD [address] [place] [address] 06-19-2022 12:01-0400 Heart rate 86 /min DR ANISA GOMEZ MD [facility] 06-19-2022 12:01-0400 Systolic Blood Pressure Non-Invasive [address] ANISA GOMEZ MD [facility] 04-06-2022 09:47-0500 Body height 157.5 cm Paula Alaniz MD Work Phone: [facility] 04-06-2022 09:47-0500 Body temperature 97.81 [degF] Paula Alaniz MD Work Phone: [facility] 04-06-2022 09:47-0500 Body weight 73.94 kg Paula Alaniz MD Work Phone: [facility] 04-06-2022 09:47-0500 Diastolic blood pressure 70 mm[Hg] Paula Alaniz MD Work Phone: [facility] 04-06-2022 09:47-0500 Heart rate 109 /min Paula Alaniz MD Work Phone: [facility] 04-06-2022 09:47-0500 SaO2% (BldA) [Mass fraction] 99 % Paula Alaniz MD Work Phone: [facility] 04-06-2022 09:47-0500 Systolic blood pressure 148 mm[Hg] Paula Alaniz MD Work Phone: [facility] 12-25-2021 16:18-0500 Diastolic Blood Pressure Non-Invasive 69 1 INES DENNIS MD [facility] 12-25-2021 16:18-0500 Systolic Blood Pressure Non-Invasive 189 1 INES DENNIS MD [facility] 12-25-2021 15:56-0500 Body height 157.5 cm INES DENNIS MD [facility] 12-25-2021 15:56-0500 Body temperature 96.44 [degF] INES DENNIS MD [facility] 12-25-2021 15:56-0500 Body weight 65.9 kg INES DENNIS MD [facility] 12-25-2021 15:56-0500 Diastolic Blood Pressure Non-Invasive 109 1 INES DENNIS MD [facility] 12-25-2021 15:56-0500 Heart rate 90 /min INES DENNIS MD [facility] 12-25-2021 15:56-0500 Respiratory rate 20 /min INES DENNIS MD [facility] 12-25-2021 15:56-0500 Systolic Blood Pressure Non-Invasive 202 1 INES DENNIS MD [facility] 12-06-2021 12:58-0400 Diastolic blood pressure 77 mm[Hg] DR KEVIN VIRGEN MD [address] [place] [address] 12-06-2021 12:58-0400 Mean blood pressure 111 mm[Hg] DR KEVIN VIRGEN MD [address] [place] [address] 12-06-2021 12:58-0400 Systolic blood pressure 180 mm[Hg] DR KEVIN VIRGEN MD [address] 12-06-2021 12:55-0400 Diastolic blood pressure 77 mm[Hg] DR KEVIN VIRGEN MD [address] [place] [address] 12-06-2021 12:55-0400 Heart rate 60 /min DR KEVIN VIRGEN MD [address] [place] [address] 12-06-2021 12:55-0400 Mean blood pressure 111 mm[Hg] DR KEVIN VIRGEN MD [address] [place] [address] 12-06-2021 12:55-0400 Reason For Taking VItal Signs DR KEVIN VIRGEN MD [address] [place] [address] 12-06-2021 12:55-0400 Respiratory rate 18 /min DR KEVIN VIRGEN MD [address] [place] [address] 12-06-2021 12:55-0400 Systolic blood pressure 180 mm[Hg] DR KEVIN VIRGEN MD [address] 12-06-2021 08:46-0400 Heart rate 78 /min DR KEVIN VIRGEN MD [address] [place] [address] 12-06-2021 08:30-0400 Body temperature 98.06 [degF] DR KEVIN VIRGEN MD [address] 12-06-2021 08:30-0400 Diastolic blood pressure 82 mm[Hg] DR KEVIN VIRGEN MD [address] [place] [address] 12-06-2021 08:30-0400 Heart rate 77 /min DR KEVIN VIRGEN MD [address] [place] [address] 12-06-2021 08:30-0400 Mean blood pressure 106 mm[Hg] DR KEVIN VIRGEN MD [address] [place] [address] 12-06-2021 08:30-0400 Reason For Taking VItal Signs DR KEVIN VIRGEN MD [address] [place] [address] 12-06-2021 08:30-0400 Respiratory rate 17 /min DR KEVIN VIRGEN MD [address] [place] [address] 12-06-2021 08:30-0400 Systolic blood pressure 155 mm[Hg] DR KEVIN VIRGEN MD [address] [place] [address] 12-06-2021 03:45-0400 Body temperature 97.88 [degF] DR KEVIN VIRGEN MD [address] 12-06-2021 03:45-0400 Reason For Taking VItal Signs DR KEVIN VIRGEN MD [address] [place] [address] 12-06-2021 03:45-0400 Respiratory rate 18 /min DR KEVIN VIRGEN MD [address] [place] [address] 12-05-2021 23:53-0400 Body temperature 98.06 [degF] DR KEVIN VIRGEN MD [address] [place] [address] 12-04-2021 15:33-0400 Heart rate 56 /min DR KEVIN VIRGEN MD [address] [place] [address] 12-04-2021 02:47-0400 Heart rate 55 /min DR KEVIN VIRGEN MD [address] [place] [address] 12-03-2021 23:44-0400 Heart rate 60 /min DR KEVIN VIRGEN MD [address] [place] [address] 12-03-2021 21:46-0400 Body height [address] KEVIN VIRGEN MD [address] [place] [address] 12-03-2021 21:46-0400 Body weight 83.[address] KEVIN VIRGEN MD [address] [place] [address] 12-03-2021 21:46-0400 Body weight 32.73 kg/m2 DR KEVIN VIRGEN MD [address] [place] [address] 12-03-2021 21:30-0400 Heart rate 86 /min DR KEVIN VIRGEN MD [address] [place] [address] 12-03-2021 14:26-0400 Body temperature 98.06 [degF] DR KEVIN VIRGEN MD [address] [place] [address] 12-03-2021 14:26-0400 Body weight 83.[address] KEVIN VIRGEN MD [address] [place] [address] NEGATED: Highlighted [id number] 10:24-0500 BMI (Body Mass Index) 37.26 kg/m2 Rigo Best AT [facility] Work Phone: NEGATED: Highlighted [id number] 10:24-0500 BP Diastolic 72 mm[Hg] Rigo Brittneyko AT [facility] Work Phone: NEGATED: Highlighted [id number] 10:24-0500 BP Diastolic 82 mm[Hg] Rigo Brittneyclaudia AT [facility] Work Phone: NEGATED: Highlighted [id number] 10:24-0500 BP Systolic 154 mm[Hg] Rigo Best AT [facility] Work Phone: NEGATED: Highlighted [id number] 10:24-0500 BP Systolic 149 mm[Hg] Rigo Lugoko AT [facility] Work Phone: NEGATED: Highlighted [id number] 10:24-0500 Height 157.48 cm Rigo Sitko AT [facility] Work Phone: NEGATED: Highlighted [id number] 10:24-0500 Height 157 cm Rigo Sitko AT [facility] Work Phone: NEGATED: Highlighted [id number] 10:24-0500 Pulse (Heart Rate) 60 /min Rigo Best AT [facility] Work Phone: NEGATED: Highlighted [id number] 10:24-0500 Weight 92.08 kg Rigo Best AT [facility] Work Phone: NEGATED: Highlighted [id number] 10:24-0500 Weight 92 kg Rigo Best AT [facility] Work Phone: Encounters Encounter Date Encounter Type Care Provider Facility Start: 08-21-2024 ambulatory Jairon Shanks ty:[place] Start: 08-21-2024 Registered Referred Jairon Medel MD [facility] Start: 07-24-2024 End: 07-24-[address] Warner Leos MD Work Phone: -[facility] Start: 07-24-2024 End: 07-24-2024 Patient encounter procedure Jane Barth [facility] -[facility] Work Phone: Start: 07-24-2024 End: 07-24-2024 Emergency department patient visit Dr. Warner Leos MD Work Phone: -Emergency Department Work Phone: Start: 06-27-2024 End: 06-27-[address] Warner Leos MD Work Phone: [facility][Note 3] Start: 06-27-2024 End: 06-27-[address] Jairon Medel MD -[facility] Work Phone: Start: 06-26-2024 End: 06-26-[address] Warner Leos MD Work Phone: [place] Work Phone: Start: 06-26-2024 End: 06-26-2024 Departed Referred Jairon LockhartKate Ruvalcaba Start: 06-26-2024 End: 06-26-2024 ambulatory Warner Leos Jr. Facility:[place] Start: 05-29-2024 End: 05-29-[address] Warner Leos MD Work Phone: [place] Work Phone: Start: 05-29-2024 End: 05-29-2024 Departed Referred Jairon LockhartKate Ruvalcaba Start: 05-29-2024 Registered Referred Jairon LockhartKate Ruvalcaba Start: 05-29-2024 End: 05-29-2024 ambulatory Warner Leos Jr. Facility:[place] Start: 05-24-2024 End: 05-24-[address] Warner Leos MD Work Phone: [place] Work Phone: Start: 05-24-2024 End: 05-24-2024 Departed Referred Jairon LockhartKate Ruvalcaba Start: 05-24-2024 Registered Referred Jairon LockhartKate Ruvalcbaa Start: 05-23-2024 End: 05-24-[address] Warner Leos MD Work Phone: [facility] Work Phone: Start: 05-23-2024 End: 05-23-2024 Patient encounter procedure Jane Barth NP-Donnie -[facility] Work Phone: Start: 05-15-2024 End: 05-15-[address] Warner Leos MD Work Phone: [place] Work Phone: Start: 05-15-2024 End: 05-15-2024 Departed Referred Jairon Medel MD -[facility] Start: 05-15-2024 Registered Referred Jairon Medel MD -[facility] Start: 05-15-2024 End: 05-15-2024 ambulatory Warner Leos Jr. Facility:[place] Start: 05-12-2024 End: 05-12-[address] Warner Leos MD Work Phone: [facility] Work Phone: Start: 05-12-2024 End: 05-12-2024 Patient encounter procedure Jane Barth [facility] Work Phone: Start: 05-01-2024 End: 05-01-[address] Warner Leos MD Work Phone: [place] Work Phone: Start: 05-01-2024 End: 05-01-2024 Departed Referred Jairon Medel MD -[facility] Start: 05-01-2024 End: 05-01-2024 ambulatory Warner Leos Jr. Facility:[place] Start: 04-26-2024 End: 04-26-2024 ambulatory Warner Leos Jr. Facility:[facility] Start: 04-26-2024 End: 04-26-2024 Patient encounter procedure Jane Barth [facility] Work Phone: Start: 04-11-2024 End: 04-11-2024 ambulatory Warner Leos Jr. Facility:[facility] Start: 04-11-2024 End: 04-11-[address] Jairon Medel MD -[facility] Work Phone: Start: 04-03-2024 End: 04-03-2024 Patient encounter procedure Jane Barth NP-C [facility][Note 3] Work Phone: Start: 04-03-2024 End: 04-03-2024 ambulatory Warner Leos Jr. Facility:[facility] Start: 04-03-2024 Registered Referred Jairon LockhartKate Ruvalcaba Start: 03-27-2024 ambulatory Warner Leos Jr. Facil ity:[place] Start: 03-27-2024 Registered Referred Jairon LockhartKate Ruvalcaba Start: 02-29-2024 End: 02-29-2024 ambulatory Jairon Medel Facility:[facility] Start: 02-29-2024 End: 02-29-[address] Jairon Medel MD -[facility] Work Phone: Start: 02-28-2024 End: 02-28-2024 Departed Referred Jairon LockhartKate Ruvalcaba Start: 02-28-2024 End: 02-28-2024 ambulatory Warner Leos Jr. Facility:[place] Start: 02-24-2024 End: 02-24-2024 ambulatory Warner Leos Jr. Facility:[facility] Start: 02-24-2024 End: 02-24-2024 Patient encounter procedure Jane CASTRO -[facility] Work Phone: Start: 02-11-2024 End: 02-23-[address] LARRY THOMAS DO Facility[facility] Start: 02-09-2024 End: 02-10-2024 Emergency department patient visit ELDA DEL ROSARIO APRN-SHAMEKA Facility:[facility] Start: 02-09-2024 End: 02-10-2024 Observation ELDA DEL ROSARIO APRN-SHAMEKA [facility] Start: 01-21-2024 End: 01-21-2024 Emergency department patient visit INES DENNIS MD [facility] Start: 01-05-2024 End: 01-05-[address] LARRY THOMAS DO Facility:[facility] Start: 01-05-2024 End: 01-05-[address] LARRY THOMAS DO [facility] Start: 12-29-2023 End: 12-29-[address] LARRY THOMAS DO [facility] Start: 12-29-2023 End: 12-29-[address] LARRY THOMAS DO [facility] Start: 12-21-2023 End: 12-21-[address] LARRY THOMAS DO Facility[facility] Start: 12-21-2023 End: 12-21-[address] LARRY THOMAS DO [facility] Start: 12-18-2023 End: 01-26-[address] LARRY THOMAS DO Facility:[facility] Start: 12-15-2023 End: 12-15-[address] LARRY THOMAS DO [facility] Start: 12-15-2023 End: 12-15-[address] LARRY THOMAS DO [facility] Start: 12-15-2023 End: 12-19-[address] LARRY THOMAS DO Facility[facility] Start: 12-15-2023 End: 12-19-[address] LARRY THOMAS DO [facility] Start: 12-09-2023 End: 12-09-2023 Emergency department patient visit INES DENNIS MD [facility] Start: 11-29-2023 End: 11-29-2023 Emergency department patient visit SONNY STAHL DO [facility] Start: 07-08-2023 End: 07-09-[address] LARRY THOMAS DO Facility:[facility] Start: 07-08-2023 End: 07-08-[address] LARRY THOMAS DO [facility] Start: 04-14-2023 End: 04-15-2023 ambulatory MAHAD LORENZO MD Facility:[facility] Start: 04-14-2023 End: 04-14-2023 Patient encounter procedure MAHAD LORENZO MD [facility] Start: 04-09-2023 End: 05-06-[address] LARRY THOMAS DO Facility:[facility] Start: 04-09-2023 End: 02-14-[address] LARRY THOMAS DO Facility:[facility] Start: 04-07-2023 End: 04-08-[address] LARRY THOMAS DO Facility:[facility] Start: 04-07-2023 End: 04-07-2023 Patient encounter procedure MAHAD LORENZO MD [facility] Start: 03-10-2023 End: 03-11-[address] LARRY THOMAS DO Facility:[facility] Start: 12-14-2022 End: 12-15-[address] LARRY THOMAS DO Facility:[facility] Start: 2022 End: 11-09-[address] LARRY THOMAS DO Facility:[facility] Start: 2022 End: 11-09-2022 Coordination of care plan DR LARRY THOMAS DO [facility] Start: 09-16-2022 End: 09-17-[address] LARRY THOMAS DO Facility:[facility] Start: 07-16-2022 End: 07-17-[address] ANISA GOMEZ MD Facility:[facility] Start: 06-19-2022 End: 06-19-[address] ANISA GOMEZ MD [facility] Start: 06-03-2022 Telephone encounter Paula Yepez MD Work Phone: General Surgery Comment on above: Request for medical records Start: 04-15-2022 End: 04-15-[address] LARRY THOMAS DO [facility] Start: 04-14-2022 End: 04-14-[address] LARRY THOMAS DO [facility] Start: 04-06-2022 End: 04-07-2022 ambulatory PAULA ALANIZ Facility:[facility] Start: 04-06-2022 End: 04-06-2022 Patient encounter procedure Paula Alaniz MD Work Phone: General Surgery Comment on above: Abnormal ultrasound of breast; History of left breast cancer Start: 03-23-2022 End: 03-23-2022 Patient encounter procedure ALANNA WRIGHT DO [facility] Start: 03-09-2022 End: 03-09-[address] LARRY THOMAS DO [facility] Start: 02-23-2022 End: 02-23-2022 Patient encounter procedure ALANNA WRIGHT DO [facility] Start: 01-22-2022 End: 01-22-2022 Patient encounter procedure ALANNA WRIGHT DO [facility] Start: 12-25-2021 End: 12-25-2021 Emergency department patient visit INES DENNIS MD [facility] Start: 12-03-2021 End: 12-06-[address] KEVIN VIRGEN MD [facility] Start: 05-05-2021 End: 05-05-2021 Patient encounter procedure ALANNA WRIGHT [facility] Start: 12-11-2020 End: 12-11-2020 Patient encounter procedure SEAN POOLE MD [facility] Start: 03-01-2018 Patient encounter procedure [facility] Start: 01-17-2018 End: 01-17-2018 Patient encounter procedure Carla Dye MD Work Phone: [facility] Work Phone: Start: 05-18-2017 [...] Date Care Activity Detail Author Start: 07-24-2024 [place] Start: 02-08-2022 ADVANCE DIRECTIVE DISCUSSION ADVANCE DIRECTIVE DISCUSSION [facility] Start: 02-08-2022 DEPRESSION ASSESSMENT DEPRESSION ASSESSMENT [facility] Start: 08-10-2021 COVID-19 VACCINE (5 - Booster for Moderna series) COVID-19 VACCINE (5 - Booster for Moderna series) [facility] Start: 01-17-2018 End: 01-17-2018 Appointment Appointment [facility] Work Phone: Start: 09-23-2003 BONE DENSITY BONE DENSITY [facility] Start: 09-23-2003 PNEUMOCOCCAL: 65+ (1 - PCV) PNEUMOCOCCAL: 65+ (1 - PCV) [facility] Start: 1988 SHINGRIX VACCINE (1 of 2) SHINGRIX VACCINE (1 of 2) [facility] Start: 09-23-1983 DIABETES SCREEN DIABETES SCREEN [facility] Start: 1957 Urine microalbumin profile DTAP,TDAP,TD (1 - Tdap) [facility] Patient Education ED Pelvic Fracture [facility] Work Phone: Patient referral [facility] Work Phone: Immunizations Immunization Date Immunization Notes Care Provider Fa [facility] 12-27-2022 SARS-CoV-2 (COVID-19 ) mRNA- MAHAD LORENZO MD [facility] 11-05-2022 zoster vaccine recombinant MAHAD LORENZO MD [facility] 10-03-2022 influenza virus vacc ine, unspecified formulation MAHAD LORENZO MD [facility] 09-15-2022 pneumococcal 20-lisa nt conjugate vaccine MAHAD LORENZO MD [facility] 01-10-2022 influenza virus vacc ine, unspecified formulation MAHAD LORENZO MD [facility] 06-15-2021 SARS-CoV-2 (COVID-19 ) mRNA-1273 vaccine MAHAD LORENZO MD [facility] 12-12-2020 SARS-CoV-2 (COVID-19 ) mRNA-1273 vaccine MAHAD LORENZO MD [facility] Comment on above: Result Comment: 2022: [id number] 10-22-2020 influenza virus vacc ine, unspecified formulation MAHAD LORENZO MD [facility] 03-28-2020 COVID-19, mRNA, LNP- S, PF, 100 mcg/ 0.5 mL dose; Translations: [Moderna COVID-19 Vaccine] SEAN POOLE MD [facility] 02-29-2020 COVID-19, mRNA, LNP- S, PF, 100 mcg/ 0.5 mL dose; Translations: [Moderna COVID-19 Vaccine] SEAN POOLE MD [facility] 10-12-2019 influenza virus vacc ine, unspecified formulation SEAN POOLE MD [facility] Comment on above: Result Comment: phar liv administered 10-11-2019 influenza virus vacc ine, unspecified formulation MAHAD LORENZO MD [facility] 10-11-2019 pneumococcal conjuga te vaccine, 13 valent SEAN POOLE MD [facility] 10-07-2018 influenza virus vacc ine, unspecified formulation SEAN POOLE MD [facility] 12-21-2017 influenza virus vacc ine, unspecified formulation SEAN POOLE MD [facility] 10-27-2016 influenza virus vacc ine, unspecified formulation SEAN POOLE MD [facility] 10-29-2015 influenza virus vacc ine, unspecified formulation SEAN POOLE MD [facility] 10-30-2014 influenza virus vacc ine, unspecified formulation SEAN POOLE MD [facility] 10-31-2013 influenza virus vacc ine, unspecified formulation SEAN POOLE MD [facility] 11-01-2012 influenza virus vacc ine, unspecified formulation SEAN POOLE MD [facility] 01-09-2005 pneumococcal polysaccharide vaccine, 23 valent SEAN POOLE MD [facility] No information available. Rigo Best AT [facility] Work Phone: Payers Date Payer Category Payer Self-pay [id number] 2017 Private Health Insurance [id number] 2017 Unknown [id number] 2003 Medicare [id number] 2003 Medicare [id number] 1938 Unknown [id number] 2.16.840.1.853742.3.579.2.62 1938 Unknown [id number] 2.16.840.1.932470.3.579.2.627 1938 Unknown [id number] 2.16.840.1.040274.3.579.2.62 1938 Unknown [id number] 2.16.840.1.807269.3.579.2. 1938 Unknown [id number] 2.16.840.1.396305.3.579.2. 1938 Unknown [id number] 2.16.840.1.868383.3.579.2. 1938 Unknown [id number] 2.16840.1.385746.3.579.2. 1938 Unknown [id number] 2.840.1.751469.3.579.2. 1938 Unknown [id number] 2.840.1.960583.3.579.2. 1938 Unknown [id number] 2.840.1.265969.3.579.2 1938 Unknown [id number] 2.840.1.640789.3.579.2. 1938 Unknown [id number] 2.840.1.297469.3.579.2. 1938 Unknown [id number] 2.840.1.023508.3.579.2. 1938 Unknown [id number] 2.840.1.388183.3.579.2. 1938 Unknown [id number] 2.840.1.636284.3.579.2. 1938 Unknown [id number] 2.840.1.347867.3.579.2. 1938 Unknown [id number] 2.840.1.752723.3.579.2.62 Medicare MEDICARE PART A B [id number] Unknown [id number] 2.16.840.1.337022.3.579.2.462 Unknown [id number] 2.16.840.1.183545.3.579.2.462 Unknown [id number] 2.16.840.1.671330.3.579.2.462 Unknown [id number] 2.16.840.1.275791.3.579.2.462 Unknown [id number] 2.16.840.1.152133.3.579.2.462 Unknown [id number] 2.16.840.1.634657.3.579.2.462 Unknown [id number] 2.16840.1.851441.3.579.2.462 Unknown [id number] 2.16840.1.087553.3.579.2.462 Unknown [id number] 2.16840.1.519314.3.579.2.462 Unknown [id number] 2.840.1.221865.3.579.2.462 Unknown [id number] 2.16840.1.136148.3.579.2.462 Unknown [id number] 2.16840.1.856172.3.579.2.462 Unknown [id number] 2.16840.1.952786.3.579.2.462 Unknown [id number] 2.840.1.403840.3.579.2.462 Unknown [id number] 2.16840.1.951944.3.579.2.462 Unknown [id number] 2.840.1.271658.3.579.2.462 Unknown [id number] 2.16840.1.169916.3.579.2.462 Unknown [id number] 2.16840.1.318787.3.579.2.462 Social History Date Type Detail Facility Start: 01-17-2018 End: 01-17-2018 Assertion Unknown if ever smoked [facility] Work Phone: Start: 04-07-2019 End: 08-26-2024 Never smoked tobacco (finding) [facility] Sex Assigned At [facility] Start: 04-06-2022 Tobacco use and exposure Smokeless tobacco non-user [facility] Start: 04-06-2022 Alcohol intake Current non-dr dress marker of alcohol (finding) [facility] Start: 1940 Sex Assigned At Not on file [facility] Start: 05-25-2013 End: 05-31-2024 Sex Female (finding) [facility] Start: 1940 Sex Assigned At Female W [facility] Medical Equipment Procedure Code Equipment Code [...] gray q2hrs Performed Other: 7AM - 4PM [facility] 02-10-2024 Functional Status Financial gaston gement, Home management, Laundry, Meal preparation, Personal ADL, Shopping [facility] 02-10-2024 Functional Status [facility] 02-10-2024 Functional Status Identified as high risk, Door open, Non-Slip footwear, Room check performed [facility] 02-10-2024 Functional Status Jerrell Garcia [facility] 02-10-2024 Functional Status Jerrell Garcia [facility] 02-10-2024 Functional Status Jerrell Garcia [facility] 02-09-2024 Functional Status Jerrell Garcia [facility] 01-21-2024 Functional Status Minimum assistance [facility] 01-21-2024 Functional Status Independent Jerrell Garcia [facility] 12-09-2023 Functional Status Minimum assistance [facility] 12-09-2023 Functional Status ID band on, Call device within reach, Bed in low position, Wheels locked, Upper/Half-Length side-rails up, Visitor at bedside, Safety level maintained [facility] 11-29-2023 Functional Status [facility] ad [facility] Functional Status Standard Safet y ID band on, Call device within reach, Bed in low position, Wheels locked, Upper/Half-Length side-rails up, Visitor at bedside [facility] 06-19-2022 Functional Status Sensory Deficits None [facility] 12-25-2021 Functional Status Independent Jerrell [facility] 12-06-2021 Functional Status None Jerrell [facility] 12-06-2021 Functional Status Room check performed [facility] 12-06-2021 Functional Status Jerrell [facility] 12-06-2021 Functional Status Jerrell [facility] 12-05-2021 Functional Status Jerrell [facility] 12-05-2021 Functional Status Jerrell [facility] 12-05-2021 Functional Status Mod A 1 Jerrell [facility] 12-04-2021 Functional Status Single level home [facility] 12-04-2021 Functional Status Jerrell [facility] 12-04-2021 Functional Status Jerrell [facility] 12-04-2021 Functional Status Jerrell [facility] 12-04-2021 Functional Status Jerrell [facility] 12-04-2021 Functional Status SCD On/Re-appl ied bilateral knee high [facility] 12-03-2021 Functional Status Ambulation in Room [facility] Mental Status Date Assessment Result Facility 02-10-2024 Mental Status Not oriented to time, Forgetful, Follows simple commands [facility] 02-09-2024 Mental Status [facility] 02-09-2024 Mental Status [facility] 01-21-2024 Mental Status Orientation Not oriented to situation, Forgetful [facility] 01-21-2024 Mental Status [facility] 12-09-2023 Mental Status Orientation Oriented x 4 [facility] 12-09-2023 Mental Status [facility] 11-29-2023 Mental Status Orientation Oriented x 4 [facility] 11-29-2023 Mental Status [facility] 12-25-2021 Mental Status Orientation Oriented x 4 [facility] 12-06-2021 Mental Status Oriented x 4, Forgetful [facility] 12-06-2021 Mental Status [facility] 12-06-2021 Mental Status [facility] Clinical Notes 12-03-2021 to 07-24-2024 Note Date & Type Note Facility 07-24-2024 Discharge summary [place] 07-24-2024 Radiology Diagnostic study note [facility] Imaging Services [address] [place], [place] [id number] HIP, UNI W/ Pelvis 2-3 Views MR#: [id number] Acct: [id number] Name: CT DALTON Rep #: [id number] : 1940 F 83 From: Jane Vance MD PCP: Dr. Jairon Medel MD Status: R EG ER Study:HIP, UNI W/ Pelvis 2-3 Views Date of Ex am: 07/24/24 Exam# [id number] Ordering Dr: Sharon Harry MD PROCEDURE: HIP, [...] Right hip moderate degenerative changes. [facility] CC: Dr. Jairon Medel MD; Dr. Jean Claude Harry MD ~ Swatch Maker: Signed [place] 02-10-2024 Hospital Discharge instructions Patient Education 02/10/2024 15:03:52 Dementia, Wtaw-uq-Cibz Dementia Dementia is a condition that affects [...] Follow these instructions at home: Medicines Take czpp-mdh-zfqdgoi and prescription medicines only as told by [...] 01/07/2009 Document Revised: 04/11/2019 Document Reviewed: 04/11/2019 ElseUAB FIMA Patient Education 2020 [employer] Follow Up Care 02/09/2024 19:37:05 With:LARRY THOMAS DO Address: [address] [place] [id number] [phone] When:02/16/2024 09:30:00 Comments:This is your post-hospital appointment. Follow-up as scheduled. [facility] 02-10-2024 Note Discharge Instructions Thank you for allowing [place] to assist you with your healthcare needs. The following is important discharge information regarding your hospital visit. Your Care Team SUSY ALBRIGHT APRN-SHAMEKA Your Diagnosis (HFpEF) heart failure with preserved ejection fraction Dementia Weakness What to do next Scheduled Follow-Up Appointments Appointment Type When With Where Contact Information StatusPC OV 02/16/2024 09:30 AM EST LARRY THOMAS DO [address] [phone] Confirmed Follow Up Appointments Follow Up with LARRY THOMAS DO When:02/16/2024 09:30 AM EST Where:[address] [place] [phone] Additional Information: This is your post-hospital appointment. [...] providers or retail pharmacies. Medication Leaflets memantine (cyndie MAN teen) Namenda, Namenda KAVON What is the most important information I [...] may report side effects to FDA at 0-143-DWF-5365. What other drugs will affect memantine? Tell [...] may interact with memantine, including prescription and jssc-doi-velzitm medicines, vitamins, and herbal products. Not all [...] to ensure that the information provided by [employer]. ('[employer]') is accurate, up-to-date, and complete, but no guarantee is made to that effect. Drug information contained herein may be time sensitive. [employer] information has been compiled for use by healthcare practitioners and consumers in the [place] and therefore [employer] does not warrant that uses outside of the [place] are appropriate, unless specifically indicated otherwise. ITNs drug information does not endorse drugs, diagnose patients or recommend therapy. ITNs drug information is an informational resource designed [...] effective or appropriate for any given patient. [employer] does not assume any responsibility for any aspect of healthcare administered with the aid of information [employer] provides. The information contained herein is not intended to cover all possible uses, directions, precautions, warnings, drug interactions, allergic reactions, or adverse effects. If you have questions about the drugs you are taking, check with your doctor, nurse or pharmacist. Copyright 4028-8124 [employer]. Version: 5.01. Revision Date: 09/21/2022. Education Materials [...] Follow these instructions at home: Medicines Take cikd-vqz-kvlbiyi and prescription medicines only as told by [...] 01/07/2009 Document Revised: 04/11/2019 Document Reviewed: 04/11/2019 ElseUAB FIMA Patient Education 2020 [employer] Additional Information VACCINATE! IT SAVES LIVES! Members of the community who have not yet received the COVID-19 vaccine and would like to receive it can visit one of [facility] vaccine clinics. There are many vaccine clinic locations within the [facility]. For locations and available times, please visit https://gettheshot.coronavirus.[place].gov/. It is important to note that some COVID mobile vaccine clinics are held outdoors and may be canceled in rainy or stormy conditions. To learn more about pediatric vaccinations (ages 5-11), we invite you to visit the [facility] webpage. https://www.[employer].org/pag es/2728-Hbyey-Tbuslbsmpdl-Frequent xj-Penuc-Ynulwjxgd.html To learn more about the COVID-19 vaccine, we invite you to visit the CDC website for a list of frequently asked questions.https://www.cdc.gov/armando terri/2019-ncov/vaccines/faq.htm l [facility] Patient Portal Access Instructions: Stay connected with your healthcare team and access your personal medical information anytime with the [facility] Patient Portal. Please follow the directions below to create your [facility] account: 1.Access the email account you provided upon registration to the hospital/physician office.2.Look for an invitation email from [facility].3.Open the email and access the invitation link: Accept Invitation to [place] [facility].4.Fill in the required alejandro to create your account. To access your account, visit [employer]. Click the blue button labeled "Access Patient [...] you will allow to register on the [place] [facility] Patient Portal for access to your information. You can also access the [facility] Patient Portal on the [place] [facility] angelica. Simply click on "Patient Portal" and then log into your account. If you would like to receive a full copy of your medical records, please contact the [facility] Medical Records Department by calling [phone], Wednesday through Wednesday between 8 a.m. and [...] Call your local pharmacy or go to http://needmade.[employer]/1F7Gl0x to find one close to you.3.Make use of household items: Use cat litter or old coffee grounds to dispose medications if other options are not available. Mix your drugs with these household products, seal them in an airtight container and throw it into the garbage. Call [facility]: [phone] to be sure your drugs can be [...] CHART COPY. Signatures Patient Education Materials Dementia, Jwav-ck-Bmaw Medication Leaflets memantine My discharge plan and instructions have been reviewed and explained to me and I,CT DALTON understand my current condition and have read and understand these discharge instructions. I have received a written copy of the plan/instructions. If I have questions, I am aware that I should contact my doctor. Patient/Utility Tender Carding Signature: Date/Time: Relationship to Patient: ___ Witness Name/Signature: Date/Time: [facility] 02-10-2024 Evaluation + Plan note Extrac yamilet from: Title:History and Physical Author:SUSY ALBRIGHT APRN-SENIOR CONSUMER INSIGHTS CONSULTANT Date:02/10/24 1. Weakness 2. (HFpEF) heart failure [...] Date:02/16/2024 09:30:00 AM Scheduled Provider:LARRY THOMAS DO Location:[facility] Appointment Type:PC OV [facility] 01-02-2025 Note Date of Service 02/10/24 Chief Complaint patient called EMS with complaint of BLE swelling. patient poor historian but continues to report BLE swelling on arrival. also states that she feels weak. History of Present Illness 83 year old female with past medical history of dementia, urinary frequency, dizziness, breast cancer, CKD Stage 3, anemia, HLD, HFpEF. Patient [facility] ED on 02/09/24 due to [...] by SUSY ALBRIGHT on 02/10/2024 10:21 AM [facility]01-01-2025 Note* Exam Date Time Procedure Performing Provider Status 02/09/24 8:10 PM XR Chest 1 View EILEEN CHRISTINE DO; Arnaldo h (Verified) [id number] ORIGINAL EXAMINATION: ONE XRAY VIEW OF THE [...] 02/09/2024 9:08:10 PM Ordering Provider: TRIXIE BARONE [place] [address]-01-2025 Note* Exam Date Time Procedure Performing Provider Status 02/09/24 7:59 PM EKG [ED AOH] - CV MD TRIXIE BARONE MD; Auth (Verified) ECG Final Report Sinus rhythm LVH by voltage Inferior infarct, old Anterior Q waves, possibly due to LVH Electronic Signature: MD TRIXIE BARONE MD 02/09/2024 20:03:00 [facility]12-13-2024 Hospital Discharge instructions Patient Education 01/21/2024 11:14:13 [...] mid-urethra. Front view of female urinary tract. 1569-3785 [employer] [place] [address]. All rights reserved. This information is not intended as a substitute for professional medical care. Always follow yourhealthcare professional's instructions. Follow Up Care 01/21/2024 09:33:55 With:LARRY THOMAS DO Address: [address] [place] [address] [phone] When:2-4 days [facility] 12-13-2024 Note Discharge Instructions Thank you for allowing [place] to assist you with your healthcare needs. The following is importantdischarge information regarding your hospital visit. Diagnosis from Today's Visit Bladder pain What to Do Next Instructions from Your Care Team No qualifying data available. Post Acute Orders No qualifying data available. You Need to Schedule the Following Appointments Follow Up with LARRY THOMAS DO When:Within 2-4 days Where:[address] [place] [address] [phone] Allergies NKA Medications Please ask your primary [...] mid-urethra. Front view of female urinary tract. 1138-2912 [employer] [address] [place] [address], [place] [address]. All rights reserved. This information is not intended as a substitute for professional medical care. Always follow yourhealthcare professional's instructions. Additional Information VACCINATE! IT SAVES LIVES! Members of the community who have not yet received the COVID-19 vaccine and would like to receive it can visit one of [facility] vaccine clinics. There are many vaccine clinic locations within the [facility]. For locations and available times, please visit www.gettheshot.coronavirus.[place].gov/. It is important to note that some COVID mobile vaccine clinics are held outdoors and may be canceled in rainy or stormy conditions. To learn more about pediatric vaccinations (ages 5-11), we invite you to visit the [facility] webpage. https://www.[facility].org/pages/3165-Rceuz-Ktbdcwtdeba-Hhiswxjgui-Gsxxq-Zcr stions.htmlTo learn more about the COVID-19 vaccine, we invite you to visit the CDC website for a list of frequently asked questions. https://www.cdc.gov/coronavirus/2019-ncov/vaccines/faq.html [place] [facility] Patient Portal Access Instructions: Stay connected with your healthcare team and access your personal medical information anytime with the [facility] Patient Portal. If you would like a full copy of your medical records please contact the [facility] Medical Records Department Wednesday through Wednesday between 8a.m. and 4:30p.m. Please follow the directions below to access the portal: 1.Access the email account you provided upon registration to the hospital.2.Look for an invitation email from [facility].3.Open the email and access the invitation link: Accept Invitation to [facility]4.Fill in the required alejandro to create your account. Sign into www.MENA PRESTIGE with your username and password that you [...] you will allow to register on the [facility] Patient Portal for access to your information. You can also access the [facility] Patient Portal on the [employer]. Simply click on "Health Records" under "HealthData" and then click on the [employer] logo. HOW TO SAFELY DISPOSE OF PRESCRIPTION [...] Call your local pharmacy or go to http://needmade.[employer]/1C6Ty6w to find one close to you.3.Make use of household items: Use cat litter or old coffee grounds to dispose medications if other options arenot available. Mix your drugs with these household products, seal them in an airtight container andthrow it into the garbage. Call [facility]: [phone] to be sure your drugs can be [...] aware that I should contact my doctor. Patient/Utility Tender Carding Signature: Date/Time: Relationship to Patient: Witness Name/Signature: Date/Time: [facility]11-12-2024 Note ORIGINAL EXAMINATION: AP lateral obliques 4 [...] Sign Date: 12/21/2023 4:34:05 PM Ordering Provider: [facility]11-12-2024 Note ORIGINAL EXAMINATION: TWO XRAY VIEWS OF [...] Sign Date: 12/21/2023 4:21:17 PM Ordering Provider: [facility]11-09-2024 Note. MICRO - Microbiology PROCEDURE: Urine Culture [...] Locations *1: This test was performed at: [facility], [address] [place] [address], [phone]- , [facility]10-31-2024 Hospital Discharge instructions Patient Education 12/09/2023 09:33:25 [...] mid-urethra. Front view of female urinary tract. 9762-3037 [employer] [address] [place] [address], [place] [address]. All rights reserved. This information is not intended as a substitute for professional medical care. Always follow yourhealthcare professional's instructions. Follow Up Care 12/09/2023 08:33:51 With:LARRY THOMAS DO Address: [address] [place] [phone] When:2-4 days [facility] 10-31-2024 Note Discharge Instructions Thank you for allowing [place] to assist you with your healthcare needs. The following is importantdischarge information regarding your hospital visit. Diagnosis from Today's Visit Urinary frequency What to Do Next Instructions from Your Care Team No qualifying data available. Post Acute Orders No qualifying data available. You Need to Schedule the Following Appointments Follow Up with LARRY THOMAS DO When:Within 2-4 days Where:[address] [place] [phone] Allergies NKA Medications Please ask your primary [...] mid-urethra. Front view of female urinary tract. 2827-0332 [employer] [address] [place] [address]. All rights reserved. This information is not intended as a substitute for professional medical care. Always follow yourhealthcare professional's instructions. Additional Information VACCINATE! IT SAVES LIVES! Members of the community who have not yet received the COVID-19 vaccine and would like to receive it can visit one of [facility] vaccine clinics. There are many vaccine clinic locations within the [facility]. For locations and available times, please visit www.gettheshot.coronavirus.[place].gov/. It is important to note that some COVID mobile vaccine clinics are held outdoors and may be canceled in rainy or stormy conditions. To learn more about pediatric vaccinations (ages 5-11), we invite you to visit the [facility] webpage. https://www.[facility].org/pages/9871-Ypvnv-Hfkwmpbefqp-Cqgcwxjmjb-Momif-Uaq stions.htmlTo learn more about the COVID-19 vaccine, we invite you to visit the CDC website for a list of frequently asked questions. https://www.cdc.gov/coronavirus/2019-ncov/vaccines/faq.html [place] [facility] Patient Portal Access Instructions: Stay connected with your healthcare team and access your personal medical information anytime with the [facility] Patient Portal. If you would like a full copy of your medical records please contact the [facility] Medical Records Department Wednesday through Wednesday between 8a.m. and 4:30p.m. Please follow the directions below to access the portal: 1.Access the email account you provided upon registration to the [facility].2.Look for an invitation email from [facility].3.Open the email and access the invitation link: Accept Invitation to [facility]4.Fill in the required alejandro to create your account. Sign into [email or web address] PRESTIGE with your username and password that you [...] you will allow to register on the [facility] Patient Portal for access to your information. You can also access the [facility] Patient Portal on the [employer] angelica. Simply click on "Health Records" under "HealthData" and then click on the [employer] logo. HOW TO SAFELY DISPOSE OF PRESCRIPTION [...] Call your local pharmacy or go to http://bit.[employer]/7K8Mm0e to find one close to you.3.Make use of household items: Use cat litter or old coffee grounds to dispose medications if other options arenot available. Mix your drugs with these household products, seal them in an airtight container andthrow it into the garbage. Call [facility]: [phone] to be sure your drugs can be [...] aware that I should contact my doctor. Patient/Utility Tender Carding Signature: Date/Time: Relationship to Patient: Witness Name/Signature: Date/Time: [facility] Jerrell[facility] [id number] Hospital Discharge instructions Patient Education 11/29/2023 12:04:12 [...] or swelling over your back or spine 3562-9663 [employer] [address] [place] [address]. All rights reserved. This information is not intended as a substitute for professional medical care. Always follow yourhealthcare professional's instructions. Follow Up Care 11/29/2023 08:56:34 With:Go to emergency room if symptoms worsen Address:Unknown When:2-4 days With:LARRY THOMAS DO Address: [address] [facility] [place] [phone] When:2-4 days [facility] 10-21-2024 Note Discharge Instructions Thank you for allowing [place] to assist you with your healthcare needs. [...] with LARRY THOMAS DO When:Within 2-4 days Where:[address] [place] [phone]- [phone] Allergies NKA Medications Please ask your primary [...] or swelling over your back or spine 8966-8691 [employer] [address] [place] [address]. All rights reserved. This information is not intended as a substitute for professional medical care. Always follow yourhealthcare professional's instructions. Additional Information VACCINATE! IT SAVES LIVES! Members of the community who have not yet received the COVID-19 vaccine and would like to receive it can visit one of [facility] vaccine clinics. There are many vaccine clinic locations within the [facility]. For locations and available times, please visit www.gettheshot.coronavirus.[place].gov/. It is important to note that some COVID mobile vaccine clinics are held outdoors and may be canceled in rainy or stormy conditions. To learn more about pediatric vaccinations (ages 5-11), we invite you to visit the [facility] webpage. https://www.[facility].org/pages/5256-Umjgd-Mbkzcyftkox-Cdughwafuk-Zmskr-Qgc stions.htmlTo learn more about the COVID-19 vaccine, we invite you to visit the CDC website for a list of frequently asked questions. https://www.cdc.gov/coronavirus/2019-ncov/vaccines/faq.html [place] [facility] Patient Portal Access Instructions: Stay connected with your healthcare team and access your personal medical information anytime with the [facility] Patient Portal. If you would like a full copy of your medical records please contact the [facility] Medical Records Department Wednesday through Wednesday between 8a.m. and 4:30p.m. Please follow the directions below to access the portal: 1.Access the email account you provided upon registration to the [facility].2.Look for an invitation email from [facility].3.Open the email and access the invitation link: Accept Invitation to [place] [facility]4.Fill in the required alejandro to create your account. Sign into www.MENA PRESTIGE with your username and password that you [...] you will allow to register on the [facility] Patient Portal for access to your information. You can also access the [facility] Patient Portal on the [employer]. Simply click on "Health Records" under "HealthData" and then click on the [employer] logo. HOW TO SAFELY DISPOSE OF PRESCRIPTION [...] Call your local pharmacy or go to http://bit.ly/9L0An2g to find one close to you.3.Make use of household items: Use cat litter or old coffee grounds to dispose medications if other options arenot available. Mix your drugs with these household products, seal them in an airtight container andthrow it into the garbage. Call [facility]: [phone] to be sure your drugs can be [...] aware that I should contact my doctor. Patient/Utility Tender Carding Signature: Date/Time: Relationship to Patient: Witness Name/Signature: Date/Time: [facility] [id number] Note ORIGINAL HISTORY: Pain COMPARISON: No FINDINGS: [...] Date: 11/29/2023 11:51:51 AM Ordering Provider: SONNY [facility]03-06-2024 Note ORIGINAL EXAMINATION: CT OF THE [...] Date: 04/14/2023 10:35:22 AM Ordering Provider: MAHAD [facility]04-26-2023 Miscellaneous Notes* Telephone Encounter - Brenton Jennings RN - 06/03/2022 11:26 AM EDT Received a request from [facility] for all of Ct's left breast cancer treatment medical records. Faxed the request to medical records on [facility], fax confirmation sheet received. Brenton Jennings RN documented in this encounterGrand [facility] Note ORIGINAL EXAMINATION: ULTRASOUND OF THE [...] Date: 04/15/2022 10:15:33 AM Ordering Provider: LARRY [facility]03-08-2023 Note ORIGINAL EXAMINATION: ULTRASOUND OF THE KIDNEYS [...] Sign Date: 04/15/2022 10:15:33 AM Ordering Provider: [facility]02-28-2023 NoteHNO ID: [id number] Author: Paula Alaniz MD Service: ? Author [...] core breast biopsies on 03/23/2022 at [facility]. Findings of "fat necrosis, inflammation and dense [...] cancer Kidney Disease Sister Heart disease Brother ID The review of systems data was entered by the nurse and reviewed by va Nursing Notes: Mini Brooke LPN 04/06/2022 9:50 [...] of skin c (more content not included)... [facility]02-28-2023 History of Present illness Narrative* Paula Alaniz MD - 04/07/2022 7:[address] [place] 1940 REFERRING PHYSICIAN: No ref. provider found CHIEF COMPLAINT: Consult (Left breast consult) HPI: The patient is a 81 year old female presents with abnormal findings of left breast radiographs. She has a history of left breast cancer, stage II, s/p left breast lumpectomy/SLNBrbx in 2017. She is presently on anastrazole She denies palpable breast masses. She denies nipple discharge. She denies breast pain. She has been undergoing yearly surveillance mammograms, the most recent with abnormal findings. She underwent US guided needle core breast biopsies on 03/23/2022 at [facility]. Findings of "fat necrosis, inflammation and dense [...] cancer Kidney Disease Sister Heart disease Brother ID The review of systems data was entered by the nurse and reviewed by me Nursing Notes: Mini Brooke LPN 04/06/2022 9:50 [...] studies and testing were done at [facility], I have recommended that she proceed with her evaluation/treatment there. The breast radiologists there have recommended wire localization lumpectomy of the left breast. I have told her that I could offer her the same but it would be at [facility]. She states thatshe would prefer [facility] as it is closer to home. [...] Low Paula Alaniz MD documented in this encounterGrand Lake [facility]02-27-2023 Nurse Note* Mini BrookeMATILDE - 04/06/2022 9:47 AM EST REVIEW OF [...] ago Mini Brooke LPN documented in this encounterGrand Lake [facility]12-15-2022 Note ORIGINAL FROM: [place] [id number] PROCEDURE FOR: CT DALTON [address] [place], [place] [id number] Home: PID#: [id number] Exam#: [id number] : 1940 Age: 81 TO: ALANNA WRIGHT [place] [address] Fax: NO FAX EXAMINATION: ULTRASOUND OF THE [...] ALANNA WRIGHT CLINICAL: MAMMOGRAPHIC DENSITY LEFT BREAST. Manufacturing Weaver: JOSIE RUIZ RT(R) RDMS letter sent: Biopsy Recommended BI-RADS 4 and 5 Ultrasound BI-RADS: 4 Suspicious for malignancy [facility]12-15-2022 Note ORIGINAL FROM: [place] [address] PROCEDURE FOR: CT DALTON [address] [place], [place] [id number] Home: PID#: [id number] Exam#: [id number] : 1940 Age: 81 TO: ALANNA WRIGHT DO [address] [place] [address] Fax: NO FAX EXAMINATION: ULTRASOUND OF THE [...] ALANNA WRIGHT CLINICAL: MAMMOGRAPHIC DENSITY LEFT BREAST. Manufacturing Weaver: JOSIE RUIZ RT(R) RDMS letter sent: Biopsy Recommended BI-RADS 4 and 5 Ultrasound BI-RADS: 4 [facility] Hospital Discharge instructions Patient Education 12/25/2021 17:00:50 Dizziness, Uncertain Cause Dizziness (Uncertain Cause) Dizziness is a common symptom. It may be described as lightheadedness, spinning, or feeling like you are going to faint. Dizziness can have many causes. Be sure to tell the healthcare provider about: All medicines you take, including prescription, cziz-dpz-iedfwor, herbs, and supplements Any other symptoms you [...] Chest, arm, neck, back, or jaw pain 0611-1524 [employer] [address] [place] [address]. All rights reserved. This information is not [...] medicine was given, you may use an xvpm-zlh-vsboenu product made for clearingearwax (such as Debrox or Murine Earwax Drops). These contain carbamide peroxide and are available lann-rgp-onnzcds. Lie down with the blocked ear facing [...] ear Headache, neck pain or stiff neck 1508-9931 [employer] [address] [place] [address], [place] [address]. All rights reserved. This information is not intended as a substitute for professional medical care. Always follow yourhealthcare professional's instructions. Follow Up Care 12/25/2021 15:48:16 With:ALANNA WRIGHT DO Address: [address] [place] [phone] When:2-4 days [facility] 11-17-2022 Note Discharge Instructions Thank you for allowing [facility] to assist you with your healthcare needs. [...] WRIGHT DO When Within 2-4 days Where: [address] [place] [address] [place] [address]- [phone] Allergies NKA Medications Please ask your primary [...] about: All medicines you take, including prescription, eexx-pxg-pefpghu, herbs, and supplements Any other symptoms you [...] Chest, arm, neck, back, or jaw pain 5882-3711 [employer] [address] [place] [address]. All rights reserved. This information is not [...] medicine was given, you may use an zefo-dbg-dmvsxtj product made for clearingearwax (such as Debrox or Murine Earwax Drops). These contain carbamide peroxide and are available akvt-dfw-iuwiawb. Lie down with the blocked ear facing [...] ear Headache, neck pain or stiff neck 3214-6910 [employer] [address] [place] [address]. All rights reserved. This information is not intended as a substitute for professional medical care. Always follow yourhealthcare professional's instructions. Additional Information VACCINATE! IT SAVES LIVES! Members of the community who have not yet received the COVID-19 vaccine and would like to receive it can visit one of [facility] vaccine clinics. There are many vaccine clinic locations within the [facility]. For locations and available times, please visit www.gettheshot.coronavirus.[place].org. It is important to note that some COVID mobile vaccine clinics are held outdoors and may be canceled in rainy orstormy conditions. To learn more about pediatric vaccinations (ages 5-11), we invite you to visit the [facility] webpage. https://www.[facility].org/pages/2257-Knkgz-Bswjycdrhgk-Xfdofhtuwu-Ehyyo-Zkj stions.htmlTo learn more about the COVID-19 vaccine, we invite you to visit the [employer] website for a list of frequently asked questions. [email or web address]://[email or web address] [email or web address]/assets/Rzsikqbo-iqi-Vwrbtthj/gfvna-Oovertg-Genmhetnnv _Asked-Questions.pdf [facility] Access Instructions: Stay connected with your healthcare team and access your personal medical information anytime with the [facility] Patient Portal. If you would like a full copy of your medical records please contact the [facility] Medical Records Department Wednesday through Wednesday between 8a.m. and 4:30p.m. Please follow the directions below to access the portal: 1.Access the email account you provided upon registration to the [facility].2.Look for an invitation email from [facility].3.Open the email and access the invitation link: Accept [facility].Fill in the required alejandro to create your account. Sign into www.MENA PRESTIGE with your username and password that you [...] you will allow to register on the [facility] Patient Portal for access to your information. You can also access the [facility] Patient Portal on the Nearpod angelica. Simply click on "Health Records" under "HealthDaGullivearth" and then click on the [facility] logo. [...] Call your local pharmacy or go to http://bit.[employer]/4P1Gc1z to find one close to you.3.Make use of household items: Use cat litter or old coffee grounds to dispose medications if other options arenot available. Mix your drugs with these household products, seal them in an airtight container andthrow it into the garbage. Call [facility]: [phone] to be sure your drugs can be [...] aware that I should contact my doctor. Patient/Utility Tender Carding Signature: Date/Time: Relationship to Patient: Witness Name/Signature: Date/Time: [facility]10-29-2022 Hospital Discharge instructions Patient Education 12/06/2021 14:31:46 Dizziness, Xbfk-jx-Yogl Dizziness Dizziness is a common problem. It [...] balance is fine. 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 Take jjdl-smq-jkrgsax and prescription medicines only as told by [...] 01/14/2012 Document Revised: 01/28/2018 Document Reviewed: 02/11/2017 [employer] Patient Education 2020 [employer]. 12/06/2021 14:31:38 Fall Prevention and Home Safety, Truc-wc-Yybx Fall Prevention and Home Safety Falls cause [...] Document Reviewed: 04/26/2012 ExitCare Patient Information 2015 [employer] (Off[employer]). This information is not intended to replace advicegiven to you by your health care provider. Make sure you discuss any questions you have with your health care provider. Follow Up Care 12/03/2021 14:18:30 With:[facility], Address:Unknown When:1-2 days With:ALANNA WRIGHT DO Address: [address] [place] [address]- When:1-2 days Comments:Please call the office to schedule a follow up appointment [facility] 10-29-2022 Note Discharge Instructions Thank you for allowing [facility] to assist you with your healthcare needs. [...] Screening Bilateral w/ Fer 12/12/2021 03:00 PM [facility] Radiology Follow Up Appointments Follow Up with [facility], When Within 1-2 days Follow Up with ALANNA WRIGHT DO When Within 1-2 days Why: Please call the office to schedule a follow up appointment Where: [address] [place] [address]- The Following Activity and Diet Have Been [...] balance is fine. 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 Take jpwa-wii-cviprta and prescription medicines only as told by [...] 01/14/2012 Document Revised: 01/28/2018 Document Reviewed: 02/11/2017 [employer] Patient Education 2020 [employer] Fall Prevention and Home Safety Falls [...] Document Reviewed: 04/26/2012 ExitCare Patient Information 2015 Lootsie [facility]. This information is not intended to replace advicegiven to you by your health care provider. Make sure you discuss any questions you have with your health care provider. Additional Information VACCINATE! IT SAVES LIVES! Members of the community who have not yet received the COVID-19 vaccine and would like to receive it can visit one of [facility] vaccine clinics. There are many vaccine clinic locations within the [facility]. For locations and available times, please visit https://gettheshot.coronavirus.[place].gov/. It is important to note that some COVID mobile vaccine clinics are held outdoors and may be canceled in rainy or stormy conditions. To learn more about pediatric vaccinations (ages 5-11), we invite you to visit the [facility] webpage. https://www.[facility].org/pages/1709-Rjiej-Vcvvyfectzn-Ijpjfblold-Tfhke-Kgn stions.htmlTo learn more about the COVID-19 vaccine, we invite you to visit the [facility] website for a list of frequently asked questions. https://[employer]/assets/Wdidozdx-qyr-Owkpclbh/xmkwk-Kiwzzyf-Kzakuufwei _Asked-Questions.pdf [facility] Patient Portal Access Instructions: Stay connected with your healthcare team and access your personal medical information anytime with the [facility] Patient Portal.If you would like a full copy of your medical records, please contact the [facility] Medical Records Department, Wednesday through Wednesday between 8a.m. and 4:30p.m. Please follow the directions below to access the portal: 1.Access the email account you provided upon registration to the hospital.2.Look for an invitation email from [facility].3.Open the email and access the invitation link: Accept Invitation to [facility]4.Fill in the required alejandro to create your [...] you will allow to register on the [facility] Patient Portal for access to your information. You can also access the [facility] Patient Portal on the [employer]x. Simply click on "Health Records" under "HealthDaGullivearth" and then click on the [facility] logo. [...] Call your local pharmacy or go to http://needmade.Li [employer]/3E3Nn2u to find one close to you.3.Make use of household items: Use cat litter or old coffee grounds to dispose medications if other options arenot available. Mix your drugs with these household products, seal them in an airtight container andthrow it into the garbage. Call [facility]: [phone] to be sure your drugs can be [...] CHART COPY. Signatures Patient Education Materials Dizziness, Ueqf-dz-Drck Fall Prevention and Home Safety, Ipnn-iq-Tavu Medication Leaflets My discharge plan and instructions have been reviewed and explained to me and I,CT DALTON understand my current condition and have read and understand these discharge instructions. I have received a written copy of the plan/instructions. If I have questions, I am aware that I should contact my doctor. Patient/Utility Tender Carding Signature: Date/Time: Relationship to Patient: Witness Name/Signature: Date/Time: [id number] Note Discharge Instructions Thank you for allowing [facility] to assist you with your healthcare needs. [...] Screening Bilateral w/ Fer 12/12/2021 03:00 PM [facility] [place] [facility] Follow Up Appointments Follow Up with [facility], When Within 1-2 days Follow Up with ALANNA WRIGHT DO When Within 1-2 days Why: Please call the office to schedule a follow up appointment Where: [facility] [place] [address]- The Following Activity and Diet Have Been [...] to receive it can visit one of [facility] vaccine clinics. There are many vaccine clinic locations within the [facility]. For locations and available times, please visit https://gettheshot.coronavirus.[place].gov/. It is important to note that some COVID mobile vaccine clinics are held outdoors and may be canceled in rainy or stormy conditions. To learn more about pediatric vaccinations (ages 5-11), we invite you to visit the [facility] webpage. https://www.[facility].org/pages/5125-Cjbhb-Xpfmyteisda-Kmyhmxlzmr-Ztbrl-Pff stions.htmlTo learn more about the COVID-19 vaccine, we invite you to visit the [facility] website for a list of frequently asked questions. https://pomona.org/assets/Fnrymuvu-dtb-Oxabzvod/vzgld-Qiloxki-Nwqsybjmqn _Asked-Questions.pdf [facility] Patient Portal Access Instructions: Stay connected with your healthcare team and access your personal medical information anytime with the [facility] Patient Portal.If you would like a full copy of your medical records, please contact the [facility] Medical Records Department, Wednesday through Wednesday between 8a.m. and 4:30p.m. Please follow the directions below to access the portal: 1.Access the email account you provided upon registration to the [facility].2.Look for an invitation email from [facility].3.Open the email and access the invitation link: Accept Invitation to [facility]4.Fill in the required alejandro to create your account. Sign into www.MENA PRESTIGE with your username and password that you [...] you will allow to register on the [facility] Patient Portal for access to your information. You can also access the [facility] Patient Portal on the Zoeticx. Simply click on "Health Records" under "CopperLeaf TechnologiesDaGullivearth" and then click on the [employer] logo. HOW TO SAFELY DISPOSE OF PRESCRIPTION [...] Call your local pharmacy or go to http://needmade.Li [employer]/3K6Px8r to find one close to you.3.Make use of household items: Use cat litter or old coffee grounds to dispose medications if other options arenot available. Mix your drugs with these household products, seal them in an airtight container andthrow it into the garbage. Call [facility]: [phone] to be sure your drugs can be [...] aware that I should contact my doctor. Patient/Utility Tender Carding Signature: Date/Time: Relationship to Patient: Witness Name/Signature: Date/Time: [facility] [id number] Discharge summary Date of Service 12/06/21 Discharge Diagnosis 1. Unsteady gait (R26.81 - ICD-10-CM) 2. Dizziness (R42 - ICD-10-CM) Dizziness ([id number] - PNED) HTN - Hypertension ([id number] - PNED) Additional Orders: Ordered: atenolol 25 mg oral tablet,Dose : 25 mg = 1 tab(s), Oral, qDay, # 30 tab(s), 0 Refill(s), Pharmacy: [facility]/pharmacy #[id number], 160, cm, 12/03/21 21:46:00 EDT, [...] CT head, chest x-ray, MRI brain, TTE, [place]- Hallpike unremarkable.ECG showed LBBB, no prior EKG [...] 100 mg daily, hydralazine 25 mg daily, vmrrrxmbtgszkiwfwum29 mg daily, lisinopril 20 mg daily. In [...] to schedule a follow up appointment Where: [address] [place] [address]- Follow Up Appointments No qualifying data available. Follow Up Labs/Studies Discharge Labs No Follow-up Labs Discharge Studies No Follow-up Studies Discharge Diet No qualifying data available. Discharge Activity No qualifying data available. Readmission Risk/Palliative Score No qualifying data available. Digitally Signed by CODY RILEY MD on 12/06/2021 11:43 AM [facility] [id number] Discharge summary Date of Service 12/06/21 Discharge Diagnosis 1. Unsteady gait (R26.81 - ICD-10-CM) 2. Dizziness (R42 - ICD-10-CM) Dizziness ([id number] - PNED) HTN - Hypertension ([id number] - PNED) Additional Orders: Ordered: atenolol 25 mg oral tablet,Dose : 25 mg = 1 tab(s), Oral, qDay, # 30 tab(s), 0 Refill(s), Pharmacy: [facility]/pharmacy #[id number], 160, cm, 12/03/21 21:46:00 EDT, [...] 100 mg daily, hydralazine 25 mg daily, vmcdaihnopsblpfhfrr13 mg daily, lisinopril 20 mg daily. In [...] to schedule a follow up appointment Where: [address] [place] [address] [place] [address]- Follow Up Appointments No qualifying data available. Follow Up Labs/Studies Discharge Labs No Follow-up Labs Discharge Studies No Follow-up Studies Discharge Diet No qualifying data available. Discharge Activity No qualifying data available. Readmission Risk/Palliative Score No qualifying data available. Digitally Signed by CODY RILEY MD on 12/06/2021 11:43 AM [facility] [id number] Note Chief Complaint Transition plan Transitional Action Points Currently is transition over to [facility] in [place] is able to accept Patient echo explained [...] are recommending SNF. She was excepted by [facility] in [place], will require COVID screen prior to transfer. 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 I Magdalena Ashley NP, personally performed the services described in this documentation, as described by Gladys Betancourt LPN in my presence and it is both accurate and complete. This document is transcribed using voice recognition software may contain typographical errors. Digitally Signed by MAGDALENA ASHLEY on 12/06/2021 09:45 AM [facility] [id number] Note ORIGINAL EXAMINATION: TWO XRAY VIEWS OF [...] Sign Date: 12/06/2021 12:06:38 AM Ordering Provider: [facility]10-28-2022 Note Date of Service 12/05/2021 Subjective 81-year-old [...] roomrequired assistance which is not patient's baseline. [place]-Hallpike was performed in ED documented asnegative. Patient was transfer from [place] to [place] for further cardiovascular work-up. Orthostatics performed and [...] Zara no answer, called patient's son Ang [phone] Who states that patient's mental status has [...] FRIEDA HOLLAND MD on 12/05/2021 06:41 PM [facility] [id number] Note ORIGINAL EXAMINATION: TWO XRAY VIEWS OF [...] Date: 12/06/2021 12:06:38 AM Ordering Provider[facility] Note ORIGINAL EXAMINATION: MR Brain with [...] pathology. 2. Moderate parenchymal volume loss and xvpq-mp-ztlycxib chronic microvascular white matter ischemic disease. Interpreted by: Alanna Chin MD Preliminary Report By: Alanna Chin MD Electronically signed By Alanna Chin MD Dictated Date: 12/05/2021 1:36:40 PM Prelim Date: 12/05/2021 1:40:15 PM Sign Date: 12/05/2021 1:40:15 PM Ordering Provider: [facility]10-28-2022 Note ORIGINAL EXAMINATION: MR Brain with and [...] pathology. 2. Moderate parenchymal volume loss and apup-ye-robbmtau chronic microvascular white matter ischemic disease. Interpreted by: Alanna Chin MD Preliminary Report By: Alanna Chin MD Electronically signed By Alanna Chin MD Dictated Date: 12/05/2021 1:36:40 PM Prelim Date: 12/05/2021 1:40:15 PM Sign Date: 12/05/2021 1:40:15 PM Ordering Provider: [facility]10-28-2022 Note Date 12/05/2021 Chief complaint Transition [...] Physical therapy notes on 12/04 recommending SNF. 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 Digitally Signed by MAGDALENA ASHLEY on 12/05/2021 06:42 PM [facility] [id number] Note Date of Service 12/04/2021` Chief Complaint [...] roomrequired assistance which is not patient's baseline. [place] was performed in ED documented asnegative. Patient was transfer from [place] to [place] for further cardiovascular work-up. Orthostatics performed and negative. On review of telemetry patient with episodes of bradycardia will decre ase atenolol. Patient ordered for MRI TTE and carotid duplex. PT/OT evaluation pending. Patient seen and examined this morning Patient does appear to have advanced dementia She does know that she is in [place] but speaks in a roundabout way about why she is here She is pleasant follows commands in no apparent distress Patient's family was not at bedside On further discussion with nursing staff patient has waxing and waning cognition> will hold off on Flexeril repeat UA urine culture Review of system limited due to patient's current mental status Attempted to call patient's spouse Zara, tim answer> no outgoing message Objective Vitals and [...] FRIEDA HOLLAND MD on 12/04/2021 03:40 PM [facility] [id number] Note Chief Complaint Transition Plan. 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 I Magdalena Ashley NP, personally performed the services described in this documentation, as described by Danielle CARCAMO in my presence and it is both accurate and complete. This document transcribed using voice recognition software may contain typographical errors. Digitally Signed by MAGDALENA ASHLEY on 12/04/2021 02:59 PM [facility] [id number] History and physical note [facility] Hospitalist History and Physical Date of Admission: 12/03/2021 Chief complaint: Dizziness History of present illness: History is taken from talking with the patient. Patient was accepted asa transfer from [place] emergency department by my colleague. 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 Tubal ligation Family history: Mother: High blood [...] Rate18(DEC 03 21:30)16(DEC 03 14:53)20(DEC 03 14:26) [id number](DEC 03 21:30)136(DEC 03 21:30)H 187(DEC 03 16:20) [...] Appearance (POC): Clear (12/03/21 16:12:00) Urine Specific [place] (POC): <=1.005 Abnormal (12/03/21 16:12:00) Urine Glucose [...] Patient was accepted as a transfer from [facility] emergency department by my colleague [...] ANA WILSON MD on 12/03/2021 09:55 PM [facility] [id number] Note ORIGINAL EXAMINATION: CT OF THE HEAD [...] Date: 12/03/2021 4:02:30 PM [facility] Note ORIGINAL EXAMINATION: CT OF THE HEAD [...] Sign Date: 12/03/2021 4:02:30 PM Ordering Provider: [facility]10-26-2022 Evaluation + Plan noteExtracted from: Title:Clinical Document Author:ANA WILSON MD Date:12/03/21 [place] [facility] Hospitalist History and Physical Date of Admission: 12/03/2021 Chief complaint: Dizziness History of present illness: History is taken from talking with the patient. Patient was accepted as a transfer from [place] emergency department by my colleague. 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 Tubal ligation Family history: Mother: High blood [...] Rate18(DEC 03 21:30)16(DEC 03 14:53)20(DEC 03 14:26) [id number](DEC 03 21:30)136(DEC 03 21:30)H 187(DEC 03 16:20) [...] Appearance (POC): Clear (12/03/21 16:12:00) Urine Specific [place] (POC): <=1.005 Abnormal (12/03/21 16:12:00) Urine Glucose [...] Patient was accepted as a transfer from [facility] emergency department by my colleague [...] MA Mammo Screening Bilateral w/ Fer 12/12/21 [facility] Discharge summary Author Jean Claude Harry [place] Note Date/Time July 24, 2024 3:52 am [facility] Medical Records Department [address] [place] [address] Emergency Department Summary 07/24/24 MR#: [id number] Acct: [id number] Name: CT D[place] Rep #:[id number] : [id number] 83 From: Jean Claude Harry [...] and prediabetes. T[facility] a fall today at [facility] where she lives. Now having right [...] mg PO DAILY 04/20/17 04/27/17 08:00 History jhjrxxtibcai-Qw-asrh-minerals 1 ea PO DAILY 04/20/17 U nknown [...] range of motion. 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 Neurologically she is awake and alert. [...] Right hip moderate degenerative changes. Reading Location: [place] [address] Right hip and pelvis x-ray, 3 views, [...] obviously lying in bed. Tylenol for pain. [place] as needed for pain also. Print Language: Japanese Disposition Disposition: Home, Self Care What to do if you have Problems For any increased pain, shortness of breath, bleeding, nausea or vomiting, chestpain, or any unexpected problems, contact your Primary Care Provider. Call [facility] ([phone]) or report to the closest Emergency Room. Call 911 if necessary. 07/24/24351 <Electronically signed by Jean Claude Harry MD> Cosigner Signature (if applicable): CC: Dr. Jairon Medel MD ~ Signed [place] Work Phone: Evaluation + Plan note Future Appointments Appointment Date:05/05/2021 09:00:00 AM Scheduled Provider:ALANNA WRIGHT DO Location:[facility] Appointment Type:PC OV [facility] Evaluation + Plan note Future Appointments Appointment Date:11/06/2021 08:30:00 AM Scheduled Provider:ALANNA WRIGHT DO Location:[facility] Appointment Type:PC Wellness Medicare with Labs Future Scheduled Tests Radiology* XR Humerus Minimum 2 Views Right 05/05/21 [facility] Evaluation + Plan note Future Appointments Appointment Date:01/15/2022 02:00:00 PM Scheduled Provider: Location:[facility] Appointment Type:MA Mammogram Screening Bilateral w/ Fer Appointment Date:02/25/2022 10:00:00 AM Scheduled Provider:LARRY THOMAS DO Location:[facility] Appointment Type:PC ADDING MACHINE OPERATOR Appointment Date:03/13/2022 10:30:00 AM Scheduled Provider:ALANNA WRIGHT DO Location:[facility] Appointment Type:PC OV Future Scheduled Tests Radiology* MA Mammo Screening Bilateral w/ Fer 01/15/22 [facility] Evaluation + Plan note Future Appointments Appointment Date:02/25/2022 10:00:00 AM Scheduled Provider:LARRY THOMAS DO Location:[facility] Appointment Type:PC ADDING MACHINE OPERATOR Appointment Date:03/13/2022 10:30:00 AM Scheduled Provider:ALANNA WRIGHT DO Location:[facility] Appointment Type:PC OV Future Scheduled Tests Radiology* US Biopsy Breast Left 1st Lesion 01/22/22 [facility] evaluation + Plan note Future Appointments Appointment Date:03/05/2022 10:00:00 AM Scheduled Provider:LARRY THOMAS DO Location:[facility] Appointment Type:PC ADDING MACHINE OPERATOR Appointment Date:03/13/2022 10:30:00 AM Scheduled Provider:ALANNA WRIGHT DO Location:[facility] Appointment Type:PC OV Appointment Date:03/23/2022 01:00:00 PM Scheduled Provider: Location:[facility] Appointment Type:US Biopsy Breast Left 1st Lesion Future Scheduled Tests Radiology* US Biopsy Breast Left 1st Lesion 03/23/22 [facility] Evaluation + Plan note Future Appointments Appointment Date:03/13/2022 10:30:00 AM Scheduled Provider:ALANNA WRIGHT DO Location:[facility] Appointment Type:PC OV Appointment Date:03/23/2022 01:00:00 PM Scheduled Provider: Location:[facility] Appointment Type:US Biopsy Breast Left 1st Lesion Appointment Date:04/16/2022 04:30:00 PM Scheduled Provider:LARRY THOMAS DO Location:[facility] Appointment Type:PC OV Future Scheduled Tests Laboratory* Hepatic Function Panel 04/13/22 Radiology* US Biopsy Breast Left 1st Lesion 03/23/22 * US Renal 03/09/22 [facility] evaluation + Plan note Future Appointments Appointment Date:04/16/2022 04:30:00 PM Scheduled Provider:LARRY THOMAS DO Location:[facility] Appointment Type:PC OV Future Scheduled Tests Laboratory* Hepatic Function Panel 04/13/22 Radiology* US Renal 03/09/22 [facility] Evaluation + Plan note Future Appointments Appointment Date:04/15/2022 07:30:00 AM Scheduled Provider: Location:[facility] Appointment Type:US Renal Appointment Date:04/16/2022 04:30:00 PM Scheduled Provider:LARRY THOMAS DO Location[facility] Appointment Type:PC OV Appointment Date:05/28/2022 10:00:00 AM Scheduled Provider:ANISA GOMEZ MD Location:[facility] Appointment Type:BS ADDING MACHINE OPERATOR Future Scheduled Tests Radiology* US Renal 04/15/22 [facility] Evaluation + Plan note Future Appointments Appointment Date:04/16/2022 04:30:00 PM Scheduled Provider:LARRY THOMAS DO Location:[facility] Appointment Type:PC OV Appointment Date:05/28/2022 10:00:00 AM Scheduled Provider:ANISA GOMEZ MD Location:[facility] Appointment Type:BS ADDING MACHINE OPERATOR [facility] evaluation + Plan note Future Appointments Appointment Date:07/16/2022 03:30:00 PM Scheduled Provider:ANISA GOMEZ MD Location:[facility] Appointment Type:BS OV Post Op Appointment Date:09/11/2022 11:00:00 AM Scheduled Provider:LARRY THOMAS DO Location:[facility] Appointment Type:PC Wellness Medicare [facility] evaluation + Plan note Future Appointments Appointment Date:12/14/2022 10:00:00 AM Scheduled Provider: Location:[facility] Appointment Type:BD Bone Density DEXA Axial Skeleton Appointment Date:03/16/2023 10:00:00 AM Scheduled Provider:LARRY THOMAS DO Location:[facility] Appointment Type:PC OV Future Scheduled Tests Radiology* BD Bone Density DEXA Axial Skeleton 12/14/22 [facility] Evaluation + Plan note Future Appointments Appointment Date:06/15/2023 10:30:00 AM Scheduled Provider:LARRY THOMAS DO Location:[facility] Appointment Type:PC OV Diagnostic Tests Pending * Methylmalonic Acid, Serum 04/07/23 [facility] Evaluation + Plan note Future Appointments Appointment Date:06/15/2023 10:30:00 AM Scheduled Provider:LARRY THOMAS DO Location:[facility] Appointment Type:PC OV [facility] Evaluation + Plan note Future Appointments Appointment Date:12/15/2023 10:00:00 AM Scheduled Provider:LARRY THOMAS DO Location:[facility] Appointment Type:PC OV [facility] Evaluation + Plan note Future Appointments Appointment Date:12/29/2023 01:30:00 PM Scheduled Provider:LARRY THOMAS DO Location:[facility] Appointment Type:PC OV Diagnostic Tests Pending * Vitamin B12 Level 12/15/23 * Folate Level 12/15/23 Future Scheduled Tests Laboratory* Calcium Level Ionized 12/15/23 * Urine Culture 12/15/23 Radiology* XR Spine Lumbar W/Obliques 4 Views 12/15/23 [facility] Evaluation + Plan note Future Appointments Appointment Date:12/29/2023 01:30:00 PM Scheduled Provider:LARRY THOMAS DO Location:[facility] Appointment Type:PC OV Future Scheduled Tests Laboratory* Calcium Level Ionized 12/15/23 Radiology* XR Chest 2 Views (PA & Lateral) 12/19/23 * XR Spine Lumbar W/Obliques 4 Views 12/15/23 [facility] evaluation + Plan note Future Appointments Appointment Date:12/29/2023 01:30:00 PM Scheduled Provider:LARRY THOMAS DO Location:[facility] Appointment Type:PC OV Future Scheduled Tests Laboratory* Calcium Level Ionized 12/15/23 [facility] Evaluation + Plan note Future Appointments Appointment Date:02/16/2024 09:30:00 AM Scheduled Provider:LARRY THOMAS DO Location:[facility] Appointment Type:PC OV Future Scheduled Tests Radiology* US Bladder 12/29/23 [facility] Evaluation + Plan note Future Appointments Appointment Date:02/16/2024 09:30:00 AM Scheduled Provider:LARRY THOMAS DO Location:[facility] Appointment Type:PC OV [facility] Evaluation note* Diagnosis Abnormal ultrasound of breast Other (abnormal) findings on radiological examination of breast History of left breast cancer documented in this encounter [facility] noteNo assessment information availableWC[facility] Clinic [facility] Work Phone: Hospital course Narrative No data available for this section [facility] Discharge instructions No data available for this section [facility] Discharge instructions Additional Instructions She has a superior pubic ramus fracture which is a pelvis fracture. These are not treated with surgery. They generally heal over weeks to months. She can do activity as tolerated. She may walk or be in a wheelchair or obviously lying in bed. Tylenol for pain. [place] as needed for pain also.[place] Work Phone: Progress note No data available for this section [facility] Reason for referral (narrative)No reason for referral information availableWCleveland Clinic [facility] Work Phone: Chief Complaint Chief Complaint [...] Visit Chief Complaint Admit Date ADMISSION EXAM ADDING MACHINE OPERATOR February 24, 2024 3 :20pm INTERMEDIATE LAB WORK February 28, 2024 5:00am ADMISSION EXAM February 29, 2024 1 1:54am INTERMEDIATE LAB WORK March 27 5:00am LABWORK April 03, 2024 5:00am NEW CONCERN April 03, 2024 2:22pm LABWORK May 01, 2024 5:0 0am Chief Complaint Admit Date ADMISSION EXAM ADDING MACHINE OPERATOR February 24, 2024 3 :20pm INTERMEDIATE LAB WORK February 28, 2024 5:00am ADMISSION EXAM February 29, 2024 1 1:54am INTERMEDIATE LAB WORK March 27 5:00am LABWORK April 03, 2024 5:00am NEW CONCERN April 03, 2024 2:22pm MONTHLY EXAM April 11, 2024 5:02 pm NEW CONCERN April 26, 2024 6:3 9pm LABWORK May 01, 2024 5:0 0am INTERMEDIATE LAB WORK May 15, 2024 4: 00am Chief Complaint Admit Date ADMISSION EXAM ADDING MACHINE OPERATOR February 24, 2024 3 :20pm INTERMEDIATE LAB WORK February 28, 2024 5:00am ADMISSION EXAM February 29, 2024 1 1:54am INTERMEDIATE LAB WORK March 27 5:00am LABWORK April 03, 2024 5:00am NEW CONCERN April 03, 2024 2:22pm MONTHLY EXAM April 11, 2024 5:02 pm NEW CONCERN April 26, 2024 6:3 9pm LABWORK May 01, 2024 5:0 0am INTERMEDIATE LAB WORK May 15, 2024 4: 00am LABWORK May 29, 2024 5:0 0am Chief Complaint Admit Date ADMISSION EXAM ADDING MACHINE OPERATOR February 24, 2024 3 :20pm INTERMEDIATE LAB WORK February 28, 2024 5:00am ADMISSION EXAM February 29, 2024 1 1:54am INTERMEDIATE LAB WORK March 27 5:00am LABWORK April 03, 2024 5:00am NEW CONCERN April 03, 2024 2:22pm MONTHLY EXAM April 11, 2024 5:02 pm NEW CONCERN April 26, 2024 6:3 9pm LABWORK May 01, 2024 5:0 0am INTERMEDIATE LAB WORK May 15, 2024 4: 00am INTERMEDIATE LAB WORK May 24, 2024 5 :00am LABWORK May 29, 2024 5:0 0am Chief Complaint Admit Date INTERMEDIATE LAB WORK March 27 5:00am LABWORK April 03, 2024 5:00am NEW CONCERN April 03, 2024 2:22pm MONTHLY EXAM April 11, 2024 5:02 pm NEW CONCERN April 26, 2024 6:3 9pm LABWORK May 01, 2024 5:0 0am INTERMEDIATE LAB WORK May 15, 2024 4: 00am INTERMEDIATE LAB WORK May 24, 2024 5 :00am LABWORK May 29, 2024 5:0 0am INTERMEDIATE LAB WORK June 26, 2024 4:0 0am fall July 24, 2024 1:23 am Chief Complaint Admit Date INTERMEDIATE LAB WORK March 27 5:00am LABWORK April 03, 2024 5:00am NEW CONCERN April 03, 2024 2:22pm MONTHLY EXAM April 11, 2024 5:02 pm NEW CONCERN April 26, 2024 6:3 9pm LABWORK May 01, 2024 5:0 0am INTERMEDIATE LAB WORK May 15, 2024 4: 00am INTERMEDIATE LAB WORK May 24, 2024 5 :00am LABWORK May 29, 2024 5:0 0am INTERMEDIATE LAB WORK June 26, 2024 4:0 0am Chief Complaint Admit Date LABWORK April 03, 2024 5:00am NEW CONCERN April 03, 2024 2:22pm MONTHLY EXAM April 11, 2024 5:02 pm NEW CONCERN April 26, 2024 6:3 9pm LABWORK May 01, 2024 5:0 0am Monthly Exam May 12, 2024 2:03 pm INTERMEDIATE LAB WORK May 15, 2024 4: 00am INTERMEDIATE LAB WORK May 24, 2024 5 :00am LABWORK May 29, 2024 5:0 0am INTERMEDIATE LAB WORK June 26, 2024 4:0 0am fall July 24, 2024 1:23 am Chief Complaint Admit Date LABWORK April 03, 2024 5:00am NEW CONCERN April 03, 2024 2:22pm MONTHLY EXAM April 11, 2024 5:02 pm NEW CONCERN April 26, 2024 6:3 9pm LABWORK May 01, 2024 5:0 0am Monthly Exam May 12, 2024 2:03 pm INTERMEDIATE LAB WORK May 15, 2024 4: 00am New Concern May 23, 2024 5:0 2pm INTERMEDIATE LAB WORK May 24, 2024 5 :00am LABWORK May 29, 2024 5:0 0am INTERMEDIATE LAB WORK June 26, 2024 4:0 0am fall July 24, 2024 1:23 am Chief Complaint Admit Date NEW CONCERN April 26, 2024 6:3 9pm LABWORK May 01, 2024 5:0 0am Monthly Exam May 12, 2024 2:03 pm INTERMEDIATE LAB WORK May 15, 2024 4: 00am New Concern May 23, 2024 5:0 2pm INTERMEDIATE LAB WORK May 24, 2024 5 :00am LABWORK May 29, 2024 5:0 0am INTERMEDIATE LAB WORK June 26, 2024 4:0 0am MONTHLY EXAM June 27, 2024 4:00p m fall July 24, 2024 1:23 am Chief Complaint Admit Date LABWORK May 01, 2024 5:0 0am Monthly Exam May 12, 2024 2:03 pm INTERMEDIATE LAB WORK May 15, 2024 4: 00am New Concern May 23, 2024 5:0 2pm INTERMEDIATE LAB WORK May 24, 2024 5 :00am LABWORK May 29, 2024 5:0 0am INTERMEDIATE LAB WORK June 26, 2024 4:0 0am MONTHLY EXAM June 27, 2024 4:00p m fall July 24, 2024 1:23 am NEW CONCERN July 24, 2024 2:45 pm LABWORK August 21, 2024 5:00 am Additional Source Comments Reason for Visit (unrecogniz ed section and content) Reason For Visit Description Follow-up by complaint Preliminary reason f or visit data, not yet signed by the author as of lower back pain Reason Comments Consult Left breast consult Reason Comments Request for medical records INFORMATION SOURCE (unrecogn ized section and content) DATE CREATED AUTHOR 03/11/2018 [facility] DATE CREATED AUTHOR AUTHOR'S ORGANIZ ATION 06/04/2022 [facility] DATE CREATED AUTHOR AUTHOR'S ORGANIZ ATION 07/09/2023 [facility] ([place]) DATE CREATED AUTHOR AUTHOR'S ORGANIZ ATION 02/24/2024 [facility] DATE CREATED AUTHOR AUTHOR'S ORGANIZ ATION 03/28/2024 [facility] DATE CREATED AUTHOR AUTHOR'S ORGANIZ ATION 08/24/2024 [facility] Care Team (unrecognized sect ion and content) Care Team Personnel Name: ALANNA WRIGHT DO Position: P4 Physician - Primary Care Member Role: Primary Care Physician Address: Address: [address] [place] [address] Family Medicine [place], [place] [address] Name: Venkata Alegria RN Position: ED RN Member Role: ED RN Name: BLANCA ARRIETA DO Position: P4 ED Physician II Member Role: ED Physician [facility]: [facility] [address] [facility] [place], [place] [address] Care Team Related Persons Name: SHA ZARA Address: Home [address], [place] [id number] [place] Care Team Personnel Name: ALANNA WRIGHT DO Position: P4 Physician - Primary Care Member Role: Primary Care Physician Address: Address: [address] [place] [address]- Name: Danette Busch RN Position: AO RN Member Role: RN Name: INES DENNIS MD Position: ED Physician Member Role: Attending Physician Address: Address: [facility] [address] [place] [address] [place] Care Team Related Persons Name: ZARA DALTON Address: Home [address], [place] [phone] [place] Care Team Personnel Name: ALANNA WRIGHT DO Position: P4 Physician - Primary Care Member Role: Primary Care Physician Address: Address: [address] [place] [address]- Care Team Related Persons Name: ZARA DALTON Address: Home [address], [place] [id number] [place] Care Team Personnel Name: LARRY THOMAS DO Position: P4 Physician - Primary Care Member Role: Primary Care Physician Address: Address: [address] [place] [address] [place] Care Team Related Persons Name: ZARA DALTON Address: Home [address], [place] [id number] [place] Care Team Personnel Name: LARRY THOMAS DO Position: P4 Physician - Primary Care Member Role: Primary Care Physician Address: Address: [address] [place] [address] [place] Care Team Related Persons Name: ZARA DALTON Address: Home [address], [place] [phone] [place] Care Team Personnel Name: LARRY THOMAS DO Position: P4 Physician - Primary Care Member Role: Primary Care Physician Address: Address: [address] [place] [address] [place] Care Team Related Persons Name: ZARA DALTON Address: Home [address], [place] [phone] [place] Care Team Personnel Name: LARRY THOMAS DO Position: P4 Physician - Primary Care Member Role: Primary Care Physician Address: Address: [address] [place] [address] Care Team Related Persons Name: ZARA DALTON Address: Home [address], [place] [phone] Care Team Personnel Name: LARRY THOMAS Position: P4 Physician - Primary Care Member Role: Primary Care Physician Address: Address: [address] [place] [address] Care Team Related Persons Name: ZARA DALTON Address: Home [address], [place] [id number] Source Comments (unrecognize d section and content) In the event this informatio n is protected by the Federal Confidentiality of Alcohol and Drug Abuse Patient Records regulations: The Federal rules restrict any use of the information to criminally investigate or prosecute any alcohol or drug abuse patient.[facility] Hospital[facility] the event this information is protected by the Federal Confidentiality of Alcohol and Drug Abuse Patient Records regulations: The Federal rules restrict any use of the information to criminally investigate or prosecute any alcohol or drug abuse patient.[facility] Care Teams (unrecognized sec tion and content) Team Status: Active Member Role Status Dates Dr. Jarion Medel MD Primary Care Provider Active Team [...] 2024 End: April 03, 2024 Jane Barth ADDING MACHINE OPERATOR, ADDING MACHINE OPERATOR-C Attending Provider Active Start: April 03, 2024 [...] 2024 End: April 26, 2024 Jane Barth ADDING MACHINE OPERATOR, ADDING MACHINE OPERATOR-C Attending Provider Active Start: April 26, 2024 [...] Inactive Member Role Status Dates Dr. Warner Loes Jr., MD Primary Care Provider Active Start: [...] July 24, 2024 End: July 24, 2024 Director Food Safety Relationship Specialty Start Date End Date Larry Thomas [facility] [place] [address] PCP - General Family Medicine 03/30/22 Lachelle Cervantes MD, [address] [place], [place] [id number] Physician Radiation Oncology 05/11/17 Kesha Davidson RN Specialty Paratransit Operator Oncology 07/28/17 Director Food Safety Relationship Specialty Start Date End Date Larry Thomas DO [address] [place] [address] PCP - General Family Medicine 03/30/22 Lachelle Cervantes MD, [address] [place], [place] [address], [place] [id number] Physician Radiation Oncology 05/11/17 Kesha Davidson RN Specialty Paratransit Operator Oncology 07/28/17 Team Status: Active Member Role Status Dates Dr. Warner Leos Jr., MD Family Provider Active Dr. Warner Leos Jr., MD Primary Care Provider Active Team Status: Inactive Member Role Status Dates Dr. Warner Leos Jr., MD Primary Care Provider Active Start: February 24, 2024 End: February 24, 2024 Jane Barth ADDING MACHINE OPERATOR, ADDING MACHINE OPERATOR-C Attending Provider Active Start: February 24, 2024 [...] 2024 End: May 12, 2024 Jane Barth ADDING MACHINE OPERATOR, ADDING MACHINE OPERATOR-C Attending Provider Active Start: May 12, 2024 End: May 12, 2024 Team Status: Inactive Member Role Status Dates Dr. Jairon Medel MD Primary Care Provider Active Start: May 23, 2024 End: May 23, 2024 Jane Barth ADDING MACHINE OPERATOR, ADDING MACHINE OPERATOR-C Attending Provider Active Start: May 23, 2024 End: May 23, 2024 Team Status: Active Member Role/Relationship Status Dates Dr. Jairon Medel MD Primary Care Provider Active Team Status: Inactive Member Role/Relationship Status Dates Dr. Warner Leos Jr., MD Primary Care Provider Active Start: April 26, 2024 End: April 26, 2024 Jane Barth ADDING MACHINE OPERATOR, ADDING MACHINE OPERATOR-C Attending Provider Active Start: April 26, 2024 End: April 26, 2024 Team Status: Inactive Member Role/Relationship Status Dates Dr. Warner Leos Jr., MD Primary Care Provider Active Start: May 01, 2024 End: May 01, 2024 Jairon TREVIÑO MD Attending Provider Active Start: May 01, 2024 End: May 01, 2024 Team Status: Inactive Member Role/Relationship Status Dates Dr. Jairon Medel MD Primary Care Provider Active Start: May 12, 2024 End: May 12, 2024 Jane Barth ADDING MACHINE OPERATOR, ADDING MACHINE OPERATOR-C Attending Provider Active Start: May 12, 2024 End: May 12, 2024 Team Status: Inactive Member Role/Relationship Status Dates Dr. Warner Leos Jr., MD Primary Care Provider Active Start: May 15, 2024 End: May 15, 2024 Jairon TREVIÑO MD Attending Provider Active Start: May 15, 2024 End: May 15, 2024 Jairon TREVIÑO MD Referring Provider Active Start: May 15, 2024 End: May 15, 2024 Team Status: Inactive Member Role/Relationship Status Dates Dr. Jairon Medel MD Primary Care Provider Active Start: May 23, 2024 End: May 23, 2024 Jane Barth ADDING MACHINE OPERATOR, ADDING MACHINE OPERATOR-C Attending Provider Active Start: May 23, 2024 End: May 23, 2024 Team Status: Inactive Member Role/Relationship Status Dates Dr. Warner Leos Jr., MD Primary Care Provider Active Start: May 24, 2024 End: May 24, 2024 Jairon TREVIÑO MD Attending Provider Active Start: May 24, 2024 End: May 24, 2024 Team Status: Inactive Member Role/Relationship Status Dates Dr. Warner Leos Jr., MD Primary Care Provider Active Start: May 29, 2024 End: May 29, 2024 Jairon TREVIÑO MD Attending Provider Active Start: May 29, 2024 End: May 29, 2024 Team Status: Inactive Member Role/Relationship Status Dates Dr. Warner Leos Jr., MD Primary Care Provider Active Start: June 26, 2024 End: June 26, 2024 Jairon TREVIÑO MD Attending Provider Active Start: June 26, 2024 End: June 26, 2024 Jairon TREVIÑO MD Referring Provider Active Start: June 26, 2024 End: June 26, 2024 Team Status: Inactive Member Role/Relationship Status Dates Dr. Jairon Medel MD Primary Care Provider Active Start: June 27, 2024 End: June 27, 2024 Dr. Jairon Medel MD Attending Provider Active Start: June 27, 2024 End: June 27, 2024 Team Status: Inactive Member Role/Relationship Status Dates Dr. Jairon Medel MD Primary Care Provider Active Start: July 24, 2024 End: July 24, 2024 Dr. Jean Claude Harry MD Attending Provider Active S tart: July 24, 2024 End: July 24, 2024 Dr. Jean Claude Harry MD Emergency Provider Active S tart: July 24, 2024 End: July 24, 2024 Team Status: Active Member Role/Relationship Status Dates Dr. Jairon Medel MD Primary Care Provider Active Start: August 21, 2024 Jairon TREVIÑO MD Attending Provider Active Start: August 21, 2024 Team Status: Inactive Member Role/Relationship Status Dates Dr. Warner Leos Jr., MD Primary Care Provider Active Start: May 01, 2024 End: May 01, 2024 Jairon TREVIÑO MD Attending Provider Active Start: May 01, 2024 End: May 01, 2024 Team Status: Inactive Member Role/Relationship Status Dates Dr. Jairon Medel MD Primary Care Provider Active Start: May 12, 2024 End: May 12, 2024 Jane Barth ADDING MACHINE OPERATOR, ADDING MACHINE OPERATOR-C Attending Provider Active Start: May 12, 2024 End: May 12, 2024 Team Status: Inactive Member Role/Relationship Status Dates Dr. Warner Leso Jr., MD Primary Care Provider Active Start: May 15, 2024 End: May 15, 2024 Jairon TREVIÑO MD Attending Provider Active Start: May 15, 2024 End: May 15, 2024 Jairon TREVIÑO MD Referring Provider Active Start: May 15, 2024 End: May 15, 2024 Team Status: Inactive Member Role/Relationship Status Dates Dr. Jairon Medel MD Primary Care Provider Active Start: May 23, 2024 End: May 23, 2024 Jane Barth ADDING MACHINE OPERATOR, ADDING MACHINE OPERATOR-C Attending Provider Active Start: May 23, 2024 End: May 23, 2024 Team Status: Inactive Member Role/Relationship Status Dates Dr. Warner Leos Jr., MD Primary Care Provider Active Start: May 24, 2024 End: May 24, 2024 Jairon TREVIÑO MD Attending Provider Active Start: May 24, 2024 End: May 24, 2024 Team Status: Inactive Member Role/Relationship Status Dates Dr. Warner Leos Jr., MD Primary Care Provider Active Start: May 29, 2024 End: May 29, 2024 Jairon TREVIÑO MD Attending Provider Active Start: May 29, 2024 End: May 29, 2024 Team Status: Inactive Member Role/Relationship Status Dates Dr. Warner Leos Jr., MD Primary Care Provider Active Start: June 26, 2024 End: June 26, 2024 Jairon TREVIÑO MD Attending Provider Active Start: June 26, 2024 End: June 26, 2024 Jairon TREVIÑO MD Referring Provider Active Start: June 26, 2024 End: June 26, 2024 Team Status: Inactive Member Role/Relationship Status Dates Dr. Jairon Medel MD Primary Care Provider Active Start: June 27, 2024 End: June 27, 2024 Dr. Jairon Medel MD Attending Provider Active Start: June 27, 2024 End: June 27, 2024 Team Status: Inactive Member Role/Relationship Status Dates Dr. Jairon Medel MD Primary Care Provider Active Start: July 24, 2024 End: July 24, 2024 Dr. Jean Claude Harry MD Attending Provider Active S tart: July 24, 2024 End: July 24, 2024 Dr. Jean Claude Harry MD Emergency Provider Active S tart: July 24, 2024 End: July 24, 2024 Team Status: Inactive Member Role/Relationship Status Dates Dr. Jairon Medel MD Primary Care Provider Active Start: July 24, 2024 End: July 24, 2024 Jane Barth ADDING MACHINE OPERATOR, ADDING MACHINE OPERATOR-C Attending Provider Active Start: July 24, 2024 End: July 24, 2024 Goals (unrecognized section and content) [...] CLINICAL RECORDS. [facility] [employer] [facility]. provides no warranty or guarantee of the accuracy or completeness of information in this document.
[2024-08-28 08:31] LABS: Valproic Acid (Depakene) Level 14 ug/mL (50-100)
[2024-08-28 08:43] LABS: AST(SGOT) 15 U/L (<=31); Alanine Aminotransfer ALT/SGPT 9 U/L (<=34); Albumin, Serum 3.7 g/dL (3.4-4.8); Alkaline Phosphatase 73 U/L (35-104); Bilirubin, Direct 0.12 mg/dL (0.00-0.30); Cholesterol 121 mg/dL (<=200); Globulin 2.2 g/dL (2.2-4.2); Low Density Lipoprotein Calc. 46 mg/dL; Triglycerides 115 mg/dL; Very Low Density Lipoprotein 23 mg/dL (5-40); cholesterol:hdl ratio screen 2.33
== END ==
LOC: OLS.WHLCAR 05:00
PROVIDERS: PCP Internal Medicine; Visit Provider Internal Medicine
DX: G30.9 Alzheimer's disease, unspecified (principal); I12.9 Hypertensive chronic kidney disease with stage 1 through stage 4 chronic kidney disease, or unspecified chronic kidney disease; N18.9 Chronic kidney disease, unspecified; F02.B11 Dementia in other diseases classified elsewhere, moderate, with agitation
CPT/HCPCS: 36415; 80061; 80076; 80164

== ENCOUNTER → 2024-09-18 05:00 | Outpatient (REF) | payer MEDICARE, OTHER, SELFPAY ==
--- OUTSIDE RECORDS SUMMARY | 2024-09-18 04:40 | XMS RPT_ITS | CCD ---
Author Organization [facility] Inform ion Partnership [facility] Care Team Providers Care Account Management Assistant Name Role Phone Carla Dye MD Unavailable [phone] PAULA ALANIZ Referring Unavailable PAULA ALANIZ Referring Unavailable ADRIANA , ALANNA Herrera Primary Care Physician MICAHAR DO, DR GAO Primary Care Physician [phone] Billy PARKER MD, Dabrandenung Unavailable Stuart RN, [...] ROMAR DO, DR GAO Primary Care Unavailable [place] [employer]IDAL CONSULTANT-RIVET TOSSER, ELDA Admitting Unavail able SNEHA PARKER, ESPERANZA Attending Unavailable ROMAR DO, DR GAO Primary Care Unavailable ROMAR DO, DR GAO Attending Unavailable ROMAR DO, DR GAO Primary Care Unavailable ROMAR DO, DR GAO Attending Unavailable ROMAR DO, DR GAO Primary Care Unavailable ROMAR DO, DR GAO Primary Care Unavailable ROMAR DO, DR GAO Attending Unavailable Deric PARKER, Dr. Hylton Primary Care Provider Lary REACTOR SERVICE OPERATOR-C, Jane Attending Provider Jairon Medel MD Attending Provider Unavailsteffany Medel MD, Dr. De La O Attending Provider Jairon Medel MD Referring Provider UnavailDr. Warner Norton MD Primary Care Provider Jairon Medel MD Attending Provider Unavailsteffany Barth REACTOR SERVICE OPERATOR-C, Jane Attending Provider Gianfranco PARKER, Dr. De aL O Attending Provider Dr. Jairon Medel MD Primary Care Provider Dr. Jean Claude Harry MD Emergency Provider [phone] Deric PARKER, Dr. Hylton Primary Care Provider Jairon Medel MD Attending Provider UnavailDr. Jairon Morris MD Primary Care Provider Dr. Warner Leos MD Primary Care Provider Lary REACTOR SERVICE OPERATOR-C, Jane Attending Provider Jairon Medel MD Attending Provider Unavailsteffany Medel MD, Dr. De La O Attending Provider Piero PARKER, Dr. Silverio Attending Provider [phone] Dr. Warner Leos MD Primary Care Provider Lary REACTOR SERVICE OPERATOR-CJane Attending Provider [phone] Oleghe, Efewongbe Primary Care Unavailable Jane Barth Attending Unavailable Oleghe, Efewongbe Primary Care Unavailable Jean Claude Harry Attending Unavailable Oleghe OLS, Efewongbe Attending Unavailabl e Deric, Warner Primary Care Unavailable Deric, Warner Primary Care Unavailable Oleghe, Efewongbe Attending Unavailable Jane Barth Attending Unavailable Deric, Warner Primary Care Unavailable Tickmartha, Jane Attending Unavailable Deric, Warner Primary Care Unavailable Lary, Jane Attending Unavailable Oleghe, Efewongbe Primary Care Unavailable Oleghe, Efewongbe Primary Care Unavailable Oleghe OLS, Efewongbe Attending Unavailabl e Oleghe OLS, Efewongbe Attending Unavailabl e Oleghe OLS, Efewongbe Referring Unavailthea Leos, Warner Primary Care Unavailable Oleghe OLS, Efewongbe Attending Unavailabl e Oleghe, Efewongbe Primary Care Unavailable Oleghe OLS, Efewongbe Attending Unavailthea Leos, Warner Primary Care Unavailable Oleghe OLS, Efewongbe Attending Unavailthea Leos, Warner Primary Care Unavailable Oleghe OLS, Efewongbe Attending Unavailthea e Deric, Warner Primary Care Unavailable Oleghe OLS, Efewongbe Attending Unavailthea Leos, Warner Primary Care Unavailable Oleghe OLS, Efewongbe Attending Unavailabl e Oleghe OLS, Efewongbe Referring Unavailthea Leos, Warner Primary Care Unavailable Oleghe OLS, Efewongbe Attending Unavailthea Leos, Warner Primary Care Unavailable Deric, Warner Primary Care Unavailable Oleghe, Efewongbe Attending Unavailable Jane Barth Attending Unavailable Deric, Warner Primary Care Unavailable Lary, Jane Attending Unavailable Oleghe, Efewongbe Primary Care Unavailable Oleghe, Efewongbe Primary Care Unavailable Oleghe, Efewongbe Attending Unavailable Allergies Allergy Classification Reported Allergen(s) Allergy Type Date of Onset Reaction(s) Facility (1 source) Sulfacetamide Drug Allergy 4 rash [facility] Work Phone: (10 sources) Sulfonamides (Antibiotic); Translations: [SULFA (SULFONAMIDE ANTIBIOTICS)] Propensity to adverse reactions to drug (disorder) 8 Intolerance [facility] Other [place] Repository Medications Current Medications Medication Drug Class(es) [...] taking., # 12 tab(s), 1 Refill(s), Pharmacy: [facility]/pharmacy #[id number], 155, cm, 12/15/23 10:32:00 EST, Height, [...] taking., # 12 tab(s), 1 Refill(s), Pharmacy: [facility]/pharmacy #[id number], 153.5, cm, 06/15/23 10:26:00 EDT, Height, kg, 06/15/23 10:26:00 EDT, Dosing Weight Start Date: 06/15/23 Stop Date: 11/30/23 Status: Ordered anastrozole 1 mg oral tablet (20 sources) Aromatase Inhibitor Start: 09-28-2023 take 1 tablet by mouth once daily in the evening anastrozole 1 mg oral tablet 1 tab(s), Oral, qPM, # 90 tab(s), 0 Refill(s), [id number].5, cm, 06/15/23 10:26:00 EDT, Height, kg, 06/15/23 10:26:00 EDT, Dosing Weight Start Date: 09/28/23 Status: Ordered Start: 03-16-2023 take 1 tablet by charles th once daily in the evening anastrozole 1 mg oral tablet 1 tab(s), Oral, qPM, # 90 tab(s), 1 Refill(s), [id number] 155.2, cm, 03/16/23 9:59:00 EST, Height, kg, 03/16/23 9:59:00 EST, Dosing Weight Start Date: 03/16/23 Status: Ordered Start: 09-30-2022 take 1 tablet by charles th once daily in the evening anastrozole 1 mg oral tablet 1 tab(s), Oral, qPM, # 90 tab(s), 1 Refill(s), [id number] 156.5, cm, 09/11/22 11:11:00 EDT, Height, kg, 09/11/22 11:11:00 EDT, Dosing Weight Start Date: 09/30/22 Status: Ordered Start: 11-21-2021 take 1 tablet by charles th once daily in the evening anastrozole 1 mg oral tablet 1 tab(s), Oral, qPM, # 90 tab(s), 1 Refill(s), Pharmacy: [facility] [id number], 154.5, cm, 11/18/21 13:32:00 EDT, Height, kg, 11/18/21 13:32:00 EDT, Dosing Weight Start Date: 11/21/21 Status: Ordered Start: 03-20-2020 End: 04-05-2021 take 1 tablet by mouth once daily anastrozole 1 mg oral tablet 1 tab(s), Oral, qDay, # 90 tab(s), 1 Refill(s), Pharmacy: [facility] STORE [id number], 155, cm, 11/04/20 8:28:00 EDT, Height, kg, 11/11/20 8:26:00 EDT, Dosing Weight Start Date: 04/17/21 Status: Ordered Start: 01-12-2018 ARIMIDEX 1 MG TABS 1 tablet daily ANASTROZOLE [id number] Vidya Babin LPN Comment on above: TAKE 1 TABLET BY CHARLES TH EVERY DAY aspirin 81 mg delayed release oral tablet (20 sources) Platelet Aggregation Inhibitor, Nonsteroidal Anti-inflammatory Drug Start: 10-05-2023 End: 04-02-2024 aspirin 81 mg oral delayed release tablet Dose : 81 mg = 1 tab(s), Oral, qAM, do not crush or chew, # 90 tab(s), 1 Refill(s), [id number], 153.5, cm, 06/15/23 10:26:00 EDT, Height, kg, 06/15/23 10:26:00 EDT, Dosing Weight Start Date: 10/05/23 Stop Date: 04/02/24 Status: Ordered Start: 03-05-2022 End: 05-20-2023 aspirin 81 mg oral delayed r elease tablet Dose : 81 mg = 1 tab(s), Oral, qAM, do not crush or chew, # 90 tab(s), 3 Refill(s), [id number], 154.3, cm, 04/16/22 16:12:00 EST, Height, [...] qPM, # 100 tab(s), 1 Refill(s), [id number], 155, cm, 12/15/23 10:32:00 EST, Height, kg, 12/15/23 10:26:00 EST, Dosing Weight Start Date: 12/15/23 Stop Date: 07/02/24 Status: Ordered Quantity: 100.0 Unit: tab(s) Repeat number: 2 Start: 09-13-2023 End: 12-12-2023 atorvastatin 20 mg oral tabl et Dose : 20 mg = 1 tab(s), Oral, qPM, # 90 tab(s), 0 Refill(s), [id number], 153.5, cm, 06/15/23 10:26:00 EDT, Height, kg, 06/15/23 10:26:00 EDT, Dosing Weight Start Date: 09/13/23 Stop Date: 12/12/23 Status: Ordered Start: 01-29-2023 End: 07-28-2023 atorvastatin 20 mg oral tabl et Dose : 20 mg = 1 tab(s), Oral, qPM, # 90 tab(s), 1 Refill(s), [id number], 156.5, cm, 09/11/22 11:11:00 EDT, Height, kg, 09/11/22 11:11:00 EDT, Dosing Weight Start Date: 01/29/23 Stop Date: 07/28/23 Status: Ordered Start: 03-09-2022 End: 11-21-2022 atorvastatin 20 mg oral tabl et Dose : 20 mg = 1 tab(s), Oral, qPM, # 90 tab(s), 1 Refill(s), [id number], 154.3, cm, 04/16/22 16:12:00 EST, Height, kg, 04/16/22 16:12:00 EST, Dosing Weight Start Date: 05/25/22 Stop Date: 11/21/22 Status: Ordered Start: 08-22-2021 take 0.5 tablet by m outh once daily atorvastatin 20 mg oral tablet 0.5 tab(s), Oral, qDay, # 45 tab(s), 1 Refill(s), Pharmacy: [facility] [id number], 155, cm, 05/05/21 8:51:00 EDT, Height, kg, 05/05/21 8:51:00 EDT, Dosing Weight Start Date: 08/22/21 Status: Ordered Start: 11-06-2020 take 0.5 tablet by m outh once daily atorvastatin 20 mg oral tablet See Instructions, TAKE 1/2 TABLET EVERY DAY, # 45 tab(s), 1 Refill(s), [id number], 155, cm, 11/04/20 8:28:00 EDT, Height, kg, 11/04/20 8:28:00 EDT, Dosing Weight Start Date: 11/06/20 Status: Ordered Start: 04-20-2017 take 2 tablets by mo [facility] at bedtime Atorvastatin 10 MG tablet Active [...] qAM, # 90 cap(s), 0 Refill(s), [id number], 156.2, cm, 07/01/22 6:28:00 EDT, Height, kg, 07/01/22 6:28:00 EDT, Dosing Weight Start Date: 08/10/22 Status: Ordered Start: 12-07-2016 take 1 capsule by [facility] once daily in the morning celecoxib 100 mg oral capsule 1 cap(s), Oral, qAM, # 90 cap(s), 1 Refill(s), Pharmacy: [facility] ST[facility]143, 154.3, cm, 04/16/22 16:12:00 EST, Height, kg, 04/16/22 16:12:00 EST, Dosing Weight Start Date: 05/21/22 Status: Ordered Start: 10-27-2013 CELEBREX 100 M G CAPS 1-2 capsules weekly as needed CELECOXIB [id number] Vidya Babin TYRE FINISHER AND EXAMINER Comment on above: Take 100 mg by mouth once daily. ciclopirox 80 mg/ml topical solution (6 sources) Start: 03-05-2022 End: 01-06-2024 ciclopirox 8% topical solution Apply 1 angelica, Topical, Daily, apply to affected toenails and surrounding area once daily, remove with alcohol every 7 days prior to reapplication, Apply to: toenails, X 48 week(s), # 6.6 mL, 1 Refill(s), Pharmacy: [facility]/pharmacy #[id number], 154.3, cm, 03/05/22 9:44:00 EST, Height, 75.6 Start Date: 03/05/22 Stop Date: 01/06/24 Status: Ordered Clobetasol (3 sources) Corticosteroid Start: 01-20-2021 clobetasol 0.05% topical ointment See Instructions, APPLY TO AFFECTED AREA TWICE A DAY, # 15 gram(s), 1 Refill(s), Pharmacy: [facility] [id number], 155, cm, 11/04/20 8:28:00 EDT, Height, 81.2, kg, 11/11/20 8:26:00 EDT, Dosing Weight Start Date: 01/20/21 Status: Ordered Start: 07-30-2020 Temovate 0.05% topical ointment Apply 1 angelica, Topical, BID, # 15 gram(s), 0 Refill(s), Pharmacy: [facility]/pharmacy #4605, Ointment, 155, cm, 07/23/20 8:15:00 EDT, [...] qHS, # 90 tab(s), 1 Refill(s), Pharmacy: [facility]/pharmacy #4605, 156.5, cm, 09/11/22 11:11:00 EDT, [...] qHS, # 90 tab(s), 1 Refill(s), Pharmacy: [facility] [id number], 155, cm, 11/04/20 8:28:00 EDT, Height, kg, [...] discomfort, # 39 tab(s), 0 Refill(s), Pharmacy: [facility]/pharmacy #4605, 155, cm, 12/15/23 10:32:00 EST, [...] TID, # 5 gram(s), 0 Refill(s), Pharmacy: [facility]/pharmacy #4605, Cream, 155, cm, 07/23/20 8:15:00 EDT, Height, 85.2, kg, 07/23/20 8:15:00 EDT, Dosing Weight Start Date: 07/23/20 Status: Ordered lisinopril 20 mg oral tablet (14 sources) Angiotensin Converting Enzyme Inhibitor Start: 03-16-2023 take 1 tablet by mouth once daily in the morning lisinopril 20 mg oral tablet 1 tab(s), Oral, qAM, # 90 tab(s), 1 Refill(s), Pharmacy: [facility]/pharmacy #4605, 155.2, cm, 03/16/23 9:59:00 EST, Height, kg, 03/16/23 9:59:00 EST, Dosing Weight Start Date: 03/16/23 Status: Ordered Start: 10-15-2022 take 1 tablet by charles th once daily in the morning lisinopril 20 mg oral tablet 1 tab(s), Oral, qAM, # 90 tab(s), 1 Refill(s), [id number] 156.5, cm, 09/11/22 11:11:00 EDT, Height, kg, 09/11/22 11:11:00 EDT, Dosing Weight Start Date: 10/15/22 Status: Ordered Start: 04-13-2022 take 1 tablet by charles th once daily in the morning lisinopril 20 mg oral tablet 1 tab(s), Oral, qAM, # 90 tab(s), 1 Refill(s), [id number], 154.3, cm, 03/17/22 9:37:00 EST, Height, kg, 03/17/22 9:37:00 EST, Dosing Weight Start Date: 04/13/22 Status: Ordered Start: 09-02-2021 take 1 tablet by charles th once daily lisinopril 20 mg oral tablet 1 tab(s), Oral, qDay, # 90 tab(s), 1 Refill(s), Pharmacy: [facility] 02324, 155, cm, 05/05/21 8:51:00 EDT, Height, kg, 05/05/21 8:51:00 EDT, Dosing Weight Start Date: 09/02/21 Status: Ordered Start: 10-22-2020 take 1 tablet by charles th once daily lisinopril 20 mg oral tablet See Instructions, TAKE 1 TABLET BY MOUTH EVERY DAY, # 90 tab(s), 1 Refill(s), Pharmacy: [facility] [id number], 155, cm, 07/23/20 8:15:00 EDT, Height, kg, [...] mg extended release oral capsule (20 sources) T-mkyyzc-H-asparta te Receptor Antagonist Start: 07-24-2024 take 1 [...] qAM, # 90 tab(s), 1 Refill(s), [id number], 156.5, cm, 09/11/22 11:11:00 EDT, Height, kg, 09/11/22 11:11:00 EDT, Dosing Weight Start Date: 01/29/23 Status: Ordered Start: 05-25-2022 take 1 tablet by charles once daily in the morning memantine 5 mg oral tablet 1 tab(s), Oral, qAM, # 90 tab(s), 1 Refill(s), [id number], 154.3, cm, 04/16/22 16:12:00 EST, Height, kg, 04/16/22 16:12:00 EST, Dosing Weight Start Date: 05/25/22 Status: Ordered Start: 07-14-2021 take 1 tablet by charles once daily memantine 5 mg oral tablet 1 tab(s), Oral, qDay, # 90 tab(s), 1 Refill(s), Pharmacy: [facility] ST[facility] 55260, 155, cm, 05/05/21 8:51:00 EDT, Height, kg, 05/05/21 8:51:00 EDT, Dosing Weight Start Date: 07/14/21 Status: Ordered Start: 04-15-2021 take 1 tablet by charles once daily memantine 5 mg oral tablet 1 tab(s), Oral, qDay, # 90 tab(s), 0 Refill(s), Pharmacy: [facility] STORE 95593, 155, cm, 11/04/20 8:28:00 EDT, Height, kg, 11/11/20 8:26:00 EDT, Dosing Weight Start Date: 04/15/21 Status: Ordered Start: 10-17-2020 take 1 tablet by charles once daily memantine 5 mg oral tablet See Instructions, TAKE 1 TABLET BY MOUTH EVERY DAY, # 90 tab(s), 0 Refill(s), Pharmacy: [facility] STORE 86429, 155, cm, 07/23/20 8:15:00 EDT, Height, kg, 07/30/20 8:40:00 EDT, Dosing Weight Start Date: 10/17/20 Status: Ordered Multivitamin preparation (17 sources) Start: 03-17-2022 take 1 tablet by mouth once daily Multivitamin Dose = 1 tab(s), Oral, Daily, 0 Refill(s) Start Date: 03/17/22 Status: Ordered Repeat number: 1 Start: 03-17-2022 take 1 tablet by [facility] once daily Multivitamin Dose = 1 tab(s), Oral, Daily, 0 Refill(s) Start Date: 03/17/22 Status: Ordered Zbbzvoabcfmj-Tn-Rpjw-Mineral s (Multiple Vitamins For Women) 1 EACH tablet (10 sources) Start: 04-20-2017 take 1 tablet by mouth once daily Nntnsxneaywv-Ay-Zntp-Minerals (Multiple Vitamins For Women) 1 EACH tablet Active 1 NMA PO DAILY April 20, 2017 12:00am mupirocin 0.02 mg/mg topical ointment (2 sources) RNA Synthet ase Inhibit or Antibac terial Start: 06-19-2022 mupirocin 2% topical ointmen t Apply 1 angelica, Topical, BID, Bilateral intranasal application twice daily x 5 days pre-surgery., Apply to: nostril, each, # 22 gram(s), 0 Refill(s), Pharmacy: [facility]/pharmacy #[id number], Ointment, 154.3, cm, 05/28/22 7:35:00 EDT, Height, 77 Start Date: 06/19/22 Status: Ordered nystatin [id number] unt/ml topic al cream (6 sources) Polyene Antifun gal Start: 07-24-2024 Nystatin 100,000 unit/gram cream Active 1 NMA TOPICAL TWICE DAILY NEEDED as needed for groin July 24, 2024 12:00am Start: 09-11-2022 End: 11-10-2022 nystatin 100,000 units/g top ical cream Apply 1 angelica, Topical, BID, PRN Rash, Apply to the affected area twice daily until healing complete., # 30 gram(s), 1 Refill(s), Pharmacy: [facility]/pharmacy #[id number], Cream, 156.5, cm, 09/11/22 11:11:00 EDT, Height, [...] Date: 01/24/24 Status: Ordered polyethylene glycol 3350 55734 mg powder for oral solution (6 sources) [...] day(s), # 6 tab(s), 0 Refill(s), Pharmacy: [facility]/pharmacy #4605, 155, cm, 12/15/23 10:32:00 EST, [...] 02-26-2017 take 2 tablets by mo [facility] once daily atenolol (TENORMIN) 50 mg tablet [...] TABS 1 tablet daily CALCIUM CARB-CHOLECALCIFEROL TABS [id number] Vidya Babin TYRE FINISHER AND EXAMINER calcium carbonate 1500 mg oral tablet (12 sources) Start: End: calcium (as carbonate) 600 mg oral tablet Dose : 600 mg = 1 tab(s), Oral, qDay, # 90 tab(s), 3 Refill(s), Pharmacy: [facility]/pharmacy #4605, 156.5, cm, 09/11/22 11:11:00 EDT, [...] on above: Take 3 tablets by mo [facility] once daily. cyclobenzaprine hydrochloride 10 mg oral [...] on above: Take 1 capsule by mo [facility] once daily. gabapentin 300 mg oral capsule [...] Start: 08-03-2018 take 1 tablet by charles once daily in the morning hydrALAZINE 25 mg oral tablet 1 tab(s), Oral, qAM, # 90 tab(s), 1 Refill(s), Pharmacy: [facility] ST[facility] 12439, 154.5, cm, 11/18/21 13:32:00 EDT, Height, kg, 11/18/21 13:32:00 EDT, Dosing Weight Start Date: 11/21/21 Status: Ordered Comment on above: Take 25 mg by mouth once daily. hydroCHLOROthiazide 25 mg oral tablet (15 sources) Thiazide Diuretic Start: 016 End: take 1 tablet by mouth once daily Hydrochlorothiazide 25 MG tablet Discontinued 25 mg PO DAILY April 20, 2017 12:00am July 24, 2024 1:38am Comment on above: Take 25 mg by mouth once daily. MULTIPLE VITAMIN (1 source) Start: 014 MULTIVITAMINS CAPS 1 capsule daily MULTIPLE VITAMIN [id number] Jane Troy multivitamin tablet (2 sources) take [...] (13 sources) Not for resuscitation 09-11-2022 Episodic Screening and history of mental health [...] (6 sources) Patient encounter status 11-02-2019 Unclassified (2 sources) Dementia in other diseases classified elsewhere, unspecified [...] Classification Problem Date Documented Da te Episodic/Chronic Residual codes; unclassified (1 source) Edema, unspecified; Translations: [Edema, unspecified] Onset: 05-31-2024 Episodic Unclassified (1 source) Problem Results Test Name Value Interpretation Reference Range Facility Absolute lymphocyte countOrd ered By: Jairon Medel on 08-21-2024 Lymphocytes Auto (Unsp spec) [#/Vol] 1.69 10*3/uL 0.83-4.51 [facility] Absolute neutrophil countOrd ered By: Jairon Torojenifersophia on 08-21-2024 Neutrophils (Bld) [#/Vol] 4.3 10*3/uL 2.0-7.7 [facility] Anion gap in Serum or Plasma Ordered By: Jairon Medel on 08-21-2024 Anion gap [Moles/Vol] 10 mmol/L 5-15 [facility] Automated lymphocyte count a s percentage of total leukocytesOrdered By: Jairon Medel on 08-21-2024 Lymphocytes/100 WBC Auto (Unsp spec) 24.9 % 19-41 [facility] BUN/creatinine ratioOrdered By: sreekanthwest chathammakenzie Medel on 08-21-2024 Urea nitrogen/Creatinine [Mass ratio] 21.2 mg/mg High 10-20 [facility] Basophil percentageOrdered B y: Jairon Medel on 08-21-2024 Basophils/100 WBC (Bld) 0.7 % 0-1 [facility] Carbon dioxide, total [Moles /volume] in Central venous bloodOrdered By: Jairon Medel on 08-21-2024 CO2 [Moles/Vol] 24.4 mmol/L 21.0-32.0 [facility] Chloride assayOrdered By: Pooja Medel on 08-21-2024 Chloride [Moles/Vol] 108 mmol/L 98-108 [facility] Eosinophil percentageOrdered By: sreekanthwest chathammakenzie Medel on 08-21-2024 Eosinophils/100 WBC (Bld) 1.9 % 0-5 [facility] Erythrocyte distribution wid th ratioOrdered By: margarette Medel on 08-21-2024 Erythrocyte distribution width (RBC) [Ratio] 14.2 % 11.6-14.6 [facility] Erythrocyte distribution wid th standard deviationOrdered By: sreekanthwest chathammakenzie Medel on 08-21-2024 Erythrocyte distribution width (RBC) [Ratio] 47.2 fl High 35.1-43.9 [facility] Glomerular filtration rate ( GFR) estimation/1.73 sq m using serum, plasma, or whole bOrdered By: Jairon Medel on 08-21-2024 GFR/1.73 sq M.predicted among non-blacks MDRD (S/P/Bld) [Vol rate/Area] 67 mL/min/{1.73_m2} >60 [facility] Comment on above: mL/min/1.73m2 CKD-EP I Creatinine Equation (2020) Hematocrit Auto (Bld) [Volum e fraction]Ordered By: Jairon Medel on 08-21-2024 Hematocrit (Bld) [Volume fraction] 31.9 % Low 37-47 [facility] Hemoglobin measurementOrdere d By: Jairon Medel on 08-21-2024 Hemoglobin (Bld) [Mass/Vol] 10.2 g/dL Low 12.0-15.0 [facility] Immature granulocytes/100 WB C Auto (Bld)Ordered By: Jairon Medel 08-21-2024 Immature granulocytes/100 WBC (Bld) 0.100 % 0.0-0.9 [facility] Comment on above: IG% - Immature Granu locytes (promyelocytes, myelocytes and metamyelocytes) > 1% indicates that a LEFT SHIFT is Present. MCV (mean corpuscular volume ) determinationOrdered By: Jairon Medel on 08-21-2024 MCV (RBC) [Entitic vol] 91.7 fL 81-99 [facility] Mean corpuscular hemoglobin (MCH) determinationOrdered By: Jairon Medel on 08-21-2024 MCH (RBC) [Entitic mass] 29.3 pg 27.0-32.0 [facility] Mean corpuscular hemoglobin concentration (MCHC) determinationOrdered By: Jairon Medel 08-21-2024 MCHC (RBC) [Mass/Vol] 32.0 g/dL 32-36 [facility] Mean platelet volume determi nationOrdered By: Jairon Medel 08-21-2024 Platelet mean volume (Bld) [Entitic vol] 10.6 fL 6.2-12.0 [facility] Monocyte percentageOrdered B y: Jairon Medel on 08-21-2024 Monocytes/100 WBC (Bld) 9.0 % 0-10 [facility] Neutrophil percentageOrdered By: Jairon Cortezjenifersophia on 08-21-2024 Neutrophils/100 WBC (Bld) 63.4 % 47-70 [facility] Nucleated red blood cell per centageOrdered By: Poojasreekanthbraden Cortezdorcas on 08-21-2024 Nucleated RBC/100 WBC (Bld) [Ratio] 0 % 0-5 [facility] Platelet countOrdered By: Pooja margarette Cortezjenifersophia on 08-21-2024 Platelets (Bld) [#/Vol] 232 10*3/uL 150-450 [facility] Potassium measurement (mass/ volume)Ordered By: Jairon Medel on 08-21-2024 Potassium (Unsp spec) [Mass/Vol] 4.4 mmol/L 3.3-5.1 [facility] RBC Auto (Bld) [#/Vol]Ordere d By: Poojamargarette Cortezdorcas on 08-21-2024 RBC (Bld) [#/Vol] 3.48 10*6/uL Low 4.2-5.4 [facility] Serum creatinine measurement (mass/volume)Ordered By: Jairon Torojenifersophia on 08-21-2024 Creatinine [Mass/Vol] 0.85 mg/dL 0.70-1.20 [facility] Serum glucose measurement (m ass/volume)Ordered By: Jairon Medel on 08-21-2024 Glucose [Mass/Vol] 95 mg/dL 70-99 [facility] Serum or plasma calcium krissy urement (mass/volume)Ordered By: Jairon Medel on 08-21-2024 Calcium [Mass/Vol] 9.4 mg/dL 7.6-11.0 [facility] Serum or plasma urea nitroge n measurement (mass/volume)Ordered By: Jairon Medel on 08-21-2024 Urea nitrogen [Mass/Vol] 18 mg/dL 4-19 [facility] Sodium levelOrdered By: Carrillo braden Gianfranco on 08-21-2024 Sodium [Moles/Vol] 142 mmol/L 133-145 [facility] White blood cell (WBC) count Ordered By: Jairon Medel on 08-21-2024 WBC (Bld) [#/Vol] 6.8 10*3/uL 4.4-11.0 [facility] Emergency Department Summary on 07-24-2024 Emergency Department Summary [facility] Medical Records Department [address] [place] [address] Emergency Department Summary 07/24/24 MR#: [id number] Acct: [id number] Name: CT DALTON Rep #: [id number] : [id number] 83 From: Jean Claude Harry [...] symptoms: No Recent Illness/Hospitalizatio n: No PFSH PFSH Medical History Malignant neoplasm [...] PO DAILY 04/20/17 04/27/17 0 8:00 History ickqrckzened-Zk-ordb-m inerals 1 ea PO DAILY 04/20/17 Unknown [...] range of motion. 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 Neurologically she is awake and alert. She answers questions she does have dementia and some confusion. She does follow commands. Const Vital Signs: 07/24/24 01:24 07/24/24 01:24 Temperature 98 F Temperature Source Oral Pulse Rate 53 L Respirator (more content not included)... Normal [facility] HIP, UNI W/ Pelvis 2-3 Views on 07-24-2024 HIP, UNI W/ Pelvis 2-3 Views [facility] Imaging Services [address] [place], [place] [id number] HIP, UNI W/ Pelvis 2-3 Views MR#: [id number] Acct: [id number] Name: CT DALTON Rep #: [id number] : 1940 F 83 From: Lauri mason MD PCP: Dr. Jairon Medel MD Status: REG ER Study: HIP, UNI W/ Pelvis 2-3 Views Date of Exam: Exam# [id number] Ordering Dr: Jean Claude Harry MD PROCEDURE: [...] Right hip moderate degenerative changes. Reading Location: [place] [address] CC: Dr. Jairon Medel MD; Dr. Jean Claude Harry MD Career Technical Education Instructor: Signed Normal [facility] Absolute lymphocyte countOrd ered By: Jairon Medel on 06-26-2024 Lymphocytes Auto (Unsp spec) [#/Vol] 2.05 10*3/uL 0.83-4.51 [facility] Absolute neutrophil countOrd ered By: Jairon Medle on 06-26-2024 Neutrophils (Bld) [#/Vol] 3.9 10*3/uL 2.0-7.7 [facility] Anion gap in Serum or Plasma Ordered By: Jairon Medel on 06-26-2024 Anion gap [Moles/Vol] 9 mmol/L 5-15 [facility] Automated lymphocyte count a s percentage of total leukocytesOrdered By: Jairon Medel on 06-26-2024 Lymphocytes/100 WBC Auto (Unsp spec) 30.5 % 19-41 [facility] BUN/creatinine ratioOrdered By: Jairon Medel on 06-26-2024 Urea nitrogen/Creatinine [Mass ratio] 20.9 mg/mg High 10-20 [facility] Basophil percentageOrdered B y: Jairon Medel on 06-26-2024 Basophils/100 WBC (Bld) 0.4 % 0-1 [facility] Carbon dioxide, total [Moles /volume] in Central venous bloodOrdered By: Jairon Medel on 06-26-2024 CO2 [Moles/Vol] 23.5 mmol/L 21.0-32.0 [facility] Chloride assayOrdered By: Pooja Medel on 06-26-2024 Chloride [Moles/Vol] 107 mmol/L 98-108 [facility] Eosinophil percentageOrdered By: Jairon Medel on 06-26-2024 Eosinophils/100 WBC (Bld) 1.9 % 0-5 [facility] Erythrocyte distribution wid th ratioOrdered By: Jairon Medel on 06-26-2024 Erythrocyte distribution width (RBC) [Ratio] 14.1 % 11.6-14.6 [facility] Erythrocyte distribution wid th standard deviationOrdered By: Jairon Medel on 06-26-2024 Erythrocyte distribution width (RBC) [Ratio] 46.5 fl High 35.1-43.9 [facility] Glomerular filtration rate ( GFR) estimation/1.73 sq m using serum, plasma, or whole bOrdered By: Jairon Medel on 06-26-2024 GFR/1.73 sq M.predicted among non-blacks MDRD (S/P/Bld) [Vol rate/Area] 55 mL/min/{1.73_m2} Low >60 [facility] Comment on above: mL/min/1.73m2 CKD-EP I Creatinine Equation (2020) Hematocrit Auto (Bld) [Volum e fraction]Ordered By: Jairon Medel on 06-26-2024 Hematocrit (Bld) [Volume fraction] 32.7 % Low 37-47 [facility] Hemoglobin measurementOrdere d By: Jairon Medel on 06-26-2024 Hemoglobin (Bld) [Mass/Vol] 10.1 g/dL Low 12.0-15.0 [facility] Immature granulocytes/100 WB C Auto (Bld)Ordered By: Jairon Medel on 06-26-2024 Immature granulocytes/100 WBC (Bld) 0.400 % 0.0-0.9 [facility] Comment on above: IG% - Immature Granu locytes (promyelocytes, myelocytes and metamyelocytes) > 1% indicates that a LEFT SHIFT is Present. MCV (mean corpuscular volume ) determinationOrdered By: Jairon Medel on 06-26-2024 MCV (RBC) [Entitic vol] 90.3 fL 81-99 [facility] Mean corpuscular hemoglobin (MCH) determinationOrdered By: Jairon Medel on 06-26-2024 MCH (RBC) [Entitic mass] 27.9 pg 27.0-32.0 [facility] Mean corpuscular hemoglobin concentration (MCHC) determinationOrdered By: Jairon Medel 06-26-2024 MCHC (RBC) [Mass/Vol] 30.9 g/dL Low 32-36 [facility] Mean platelet volume determi nationOrdered By: Jairon Medel on 06-26-2024 Platelet mean volume (Bld) [Entitic vol] 10.3 fL 6.2-12.0 [facility] Monocyte percentageOrdered B y: Jairon Medel on 06-26-2024 Monocytes/100 WBC (Bld) 8.8 % 0-10 [facility] Neutrophil percentageOrdered By: Jairon Medel on 06-26-2024 Neutrophils/100 WBC (Bld) 58.0 % 47-70 [facility] Nucleated red blood cell per centageOrdered By: Jairon Medel on 06-26-2024 Nucleated RBC/100 WBC (Bld) [Ratio] 0 % 0-5 [facility] Platelet countOrdered By: Pooja Medel on 06-26-2024 Platelets (Bld) [#/Vol] 242 10*3/uL 150-450 [facility] Potassium measurement (mass/ volume)Ordered By: Jairon Medel on 06-26-2024 Potassium (Unsp spec) [Mass/Vol] 4.3 mmol/L 3.3-5.1 [facility] RBC Auto (Bld) [#/Vol]Ordere d By: Jairon Medel on 06-26-2024 RBC (Bld) [#/Vol] 3.62 10*6/uL Low 4.2-5.4 [facility] [place] Serum creatinine measurement (mass/volume)Ordered By: Jairon Medel on 06-26-2024 Creatinine [Mass/Vol] 1.01 mg/dL 0.70-1.20 [facility] Serum glucose measurement (m ass/volume)Ordered By: Jairon Medel on 06-26-2024 Glucose [Mass/Vol] 89 mg/dL 70-99 [facility] Serum or plasma calcium krissy urement (mass/volume)Ordered By: Jairon Medel on 06-26-2024 Calcium [Mass/Vol] 9.6 mg/dL 7.6-11.0 [facility] Serum or plasma urea nitroge n measurement (mass/volume)Ordered By: Jairon Medel on 06-26-2024 Urea nitrogen [Mass/Vol] 21 mg/dL High 4-19 [facility] Sodium levelOrdered By: Poojasreekanth feliciano Cortezjenifersophia on 06-26-2024 Sodium [Moles/Vol] 140 mmol/L 133-145 [facility] White blood cell (WBC) count Ordered By: Jairon Medel on 06-26-2024 WBC (Bld) [#/Vol] 6.7 10*3/uL 4.4-11.0 [facility] Absolute lymphocyte countOrd ered By: Jairon Medel on 05-29-2024 Lymphocytes Auto (Unsp spec) [#/Vol] 2.09 10*3/uL 0.83-4.51 [facility] Absolute neutrophil countOrd ered By: Jairon Medel on 05-29-2024 Neutrophils (Bld) [#/Vol] 3.4 10*3/uL 2.0-7.7 [facility] Anion gap in Serum or Plasma Ordered By: Jairon Medel on 05-29-2024 Anion gap [Moles/Vol] 10 mmol/L 5-15 [facility] Automated lymphocyte count a s percentage of total leukocytesOrdered By: Jairon Medel on 05-29-2024 Lymphocytes/100 WBC Auto (Unsp spec) 34.4 % 19-41 [facility] BUN/creatinine ratioOrdered By: Jairon Medel on 05-29-2024 Urea nitrogen/Creatinine [Mass ratio] 16.9 mg/mg 10-20 [facility] Basophil percentageOrdered B y: Jairon Medel on 05-29-2024 Basophils/100 WBC (Bld) 1.2 % High 0-1 [facility] Bilirubin directOrdered By: Jairon Medel on 05-29-2024 Bilirubin.direct [Mass/Vol] 0.17 mg/dL 0.00-0.30 [facility] Bilirubin, totalOrdered By: Jairon Medel on 05-29-2024 Bilirubin [Mass/Vol] 0.35 mg/dL 0.00-1.30 [facility] Carbon dioxide, total [Moles /volume] in Central venous bloodOrdered By: Jairon Medel on 05-29-2024 CO2 [Moles/Vol] 25.1 mmol/L 21.0-32.0 [facility] Chloride assayOrdered By: Pooja Medel on 05-29-2024 Chloride [Moles/Vol] 105 mmol/L 98-108 [facility] Eosinophil percentageOrdered By: Jairon Medel on 05-29-2024 Eosinophils/100 WBC (Bld) 1.6 % 0-5 [facility] Erythrocyte distribution wid th (RBC) [Ratio]Ordered By: Jairon Medel on 05-29-2024 Erythrocyte distribution width (RBC) [Entitic vol] 41.0 fL 35.1-43.9 [facility] Erythrocyte distribution wid th ratioOrdered By: Jairon Medel on 05-29-2024 Erythrocyte distribution width (RBC) [Ratio] 13.1 % 11.6-14.6 [facility] Erythrocyte distribution wid th standard deviationOrdered By: Jairon Medel on 05-29-2024 Erythrocyte distribution width (RBC) [Ratio] 41.0 fl 35.1-43.9 [facility] GFR/1.73 sq M.predicted hua g non-blacks MDRD (S/P/Bld) [Vol rate/Area]Ordered By: Jairon Medel on 05-29-2024 Estimated GFR (MDRD) Non-Af Amer 50 Low >60 [facility] Comment on above: mL/min/1.73m2 CKD-EP I Creatinine Equation (2020) Glomerular filtration rate ( GFR) estimation/1.73 sq m using serum, plasma, or whole bOrdered By: Jairon Medel on 05-29-2024 GFR/1.73 sq M.predicted among non-blacks MDRD (S/P/Bld) [Vol rate/Area] 50 mL/min/{1.73_m2} Low >60 [facility] Comment on above: mL/min/1.73m2 CKD-EP I Creatinine Equation (2020) Hematocrit Auto (Bld) [Volum e fraction]Ordered By: Jairon Medel on 05-29-2024 Hematocrit (Bld) [Volume fraction] 33.4 % Low 37-47 [facility] Hemoglobin measurementOrdere d By: Jairon Medel on 05-29-2024 Hemoglobin (Bld) [Mass/Vol] 10.9 g/dL Low 12.0-15.0 [facility] Immature granulocytes/100 WB C Auto (Bld)Ordered By: Jairon Medel on 05-29-2024 Immature granulocytes/100 WBC (Bld) 0.200 % 0.0-0.9 [facility] Comment on above: IG% - Immature Granu locytes (promyelocytes, myelocytes and metamyelocytes) > 1% indicates that a LEFT SHIFT is Present. Laboratory - Chemistry and C hemistry - challengeOrdered By: Jairon Medel on 05-29-2024 AST [Catalytic activity/Vol] 20 U/L <32 [facility] Lymphocytes Auto (Unsp spec) [#/Vol]Ordered By: Jairon Medel on 05-29-2024 Lymphocytes (Bld) [#/Vol] 2.09 10*3/uL 0.83-4.51 [facility] Lymphocytes/100 WBC Auto (Un sp spec)Ordered By: Jairon Medel on 05-29-2024 Lymphocytes/100 WBC (Bld) 34.4 % 19-41 [facility] MCV (mean corpuscular volume ) determinationOrdered By: Jairon Medel on 05-29-2024 MCV (RBC) [Entitic vol] 85.9 fL 81-99 [facility] Mean corpuscular hemoglobin (MCH) determinationOrdered By: Jairon Medel on 05-29-2024 MCH (RBC) [Entitic mass] 28.0 pg 27.0-32.0 [facility] Mean corpuscular hemoglobin concentration (MCHC) determinationOrdered By: Jairon Medel on 05-29-2024 MCHC (RBC) [Mass/Vol] 32.6 g/dL 32-36 [facility] Mean platelet volume determi nationOrdered By: Jairon Medel on 05-29-2024 Platelet mean volume (Bld) [Entitic vol] 10.3 fL 6.2-12.0 [facility] Monocyte percentageOrdered B y: Jairon Medel on 05-29-2024 Monocytes/100 WBC (Bld) 7.6 % 0-10 [facility] Neutrophil percentageOrdered By: Jairon Medel on 05-29-2024 Neutrophils/100 WBC (Bld) 55.0 % 47-70 [facility] Nucleated red blood cell per centageOrdered By: Jairon Cortezdorcas on 05-29-2024 Nucleated RBC/100 WBC (Bld) [Ratio] 0 % 0-5 [facility] Platelet countOrdered By: Pooja margarette Cortezjenifersophia on 05-29-2024 Platelets (Bld) [#/Vol] 247 10*3/uL 150-450 [facility] Potassium (Unsp spec) [Mass/ Vol]Ordered By: Jairon Torojenifersophia on 05-29-2024 Potassium [Moles/Vol] 4.3 mmol/L 3.3-5.1 [facility] Potassium measurement (mass/ volume)Ordered By: Jairon Torojenifersophia on 05-29-2024 Potassium (Unsp spec) [Mass/Vol] 4.3 mmol/L 3.3-5.1 [facility] RBC Auto (Bld) [#/Vol]Ordere d By: Carrillobraden Cortezdorcas on 05-29-2024 RBC (Bld) [#/Vol] 3.89 10*6/uL Low 4.2-5.4 [facility] [place] Serum creatinine measurement (mass/volume)Ordered By: Jairon Torojenifersophia on 05-29-2024 Creatinine [Mass/Vol] 1.08 mg/dL 0.70-1.20 [facility] Serum globulin measurementOr dered By: Jairon Medel on 05-29-2024 Globulin (S) [Mass/Vol] 2.5 g/dL 2.2-4.2 [facility] Serum glucose measurement (m ass/volume)Ordered By: Jairon Medel on 05-29-2024 Glucose [Mass/Vol] 89 mg/dL 70-99 [facility] Serum or plasma alanine crane otransferase (ALT) measurementOrdered By: Jairon Medel on 05-29-2024 ALT [Catalytic activity/Vol] 11 U/L <35 [facility] Serum or plasma albumin krissy urement (mass/volume)Ordered By: Jairon Medel on 05-29-2024 Albumin [Mass/Vol] 4.0 g/dL 3.4-4.8 [facility] Serum or plasma alkaline luis sphatase measurementOrdered By: Jairon Medel on 05-29-2024 ALP [Catalytic activity/Vol] 62 U/L 35-104 [facility] Serum or plasma calcium krissy urement (mass/volume)Ordered By: Jairon Medel on 05-29-2024 Calcium [Mass/Vol] 9.8 mg/dL 7.6-11.0 [facility] Serum or plasma urea nitroge n measurement (mass/volume)Ordered By: Jairon Medel on 05-29-2024 Urea nitrogen [Mass/Vol] 18 mg/dL 4-19 [facility] Sodium levelOrdered By: Carrillo braden Gianfranco on 05-29-2024 Sodium [Moles/Vol] 140 mmol/L 133-145 [facility] Total proteinOrdered By: Masoud angulomakenzie Medel on 05-29-2024 Protein [Mass/Vol] 6.4 g/dL 5.9-8.4 [facility] White blood cell (WBC) count Ordered By: Jairon Medel on 05-29-2024 WBC (Bld) [#/Vol] 6.1 10*3/uL 4.4-11.0 [facility] Absolute lymphocyte countOrd ered By: Jairon Medel on 05-24-2024 Lymphocytes Auto (Unsp spec) [#/Vol] 1.90 10*3/uL 0.83-4.51 [facility] Absolute neutrophil countOrd ered By: Jairon Medel on 05-24-2024 Neutrophils (Bld) [#/Vol] 3.1 10*3/uL 2.0-7.7 [facility] Anion gap in Serum or Plasma Ordered By: Jairon Medel on 05-24-2024 Anion gap [Moles/Vol] 11 mmol/L 5-15 [facility] Automated lymphocyte count a s percentage of total leukocytesOrdered By: Jairon Medel on 05-24-2024 Lymphocytes/100 WBC Auto (Unsp spec) 33.6 % 19-41 [facility] BUN/creatinine ratioOrdered By: Jairon Medel on 05-24-2024 Urea nitrogen/Creatinine [Mass ratio] 19.7 mg/mg 10-20 [facility] Basophil percentageOrdered B y: Jairon Medel on 05-24-2024 Basophils/100 WBC (Bld) 1.1 % High 0-1 [facility] Bilirubin, totalOrdered By: Jairon Medel on 05-24-2024 Bilirubin [Mass/Vol] 0.29 mg/dL 0.00-1.30 [facility] Carbon dioxide, total [Moles /volume] in Central venous bloodOrdered By: Jairon Medel on 05-24-2024 CO2 [Moles/Vol] 23.5 mmol/L 21.0-32.0 [facility] Chloride assayOrdered By: Pooja Medel on 05-24-2024 Chloride [Moles/Vol] 106 mmol/L 98-108 [facility] Eosinophil percentageOrdered By: Jairon Medel on 05-24-2024 Eosinophils/100 WBC (Bld) 2.1 % 0-5 [facility] Erythrocyte distribution wid th (RBC) [Ratio]Ordered By: Jairon Medel on 05-24-2024 Erythrocyte distribution width (RBC) [Entitic vol] 41.3 fL 35.1-43.9 [facility] Erythrocyte distribution wid th ratioOrdered By: Jairon Medel on 05-24-2024 Erythrocyte distribution width (RBC) [Ratio] 13.2 % 11.6-14.6 [facility] Erythrocyte distribution wid th standard deviationOrdered By: Jairon Medel on 05-24-2024 Erythrocyte distribution width (RBC) [Ratio] 41.3 fl 35.1-43.9 [facility] GFR/1.73 sq M.predicted hua g non-blacks MDRD (S/P/Bld) [Vol rate/Area]Ordered By: Jairon Medel on 05-24-2024 Estimated GFR (MDRD) Non-Af Amer 52 Low >60 [facility] Comment on above: mL/min/1.73m2 CKD-EP I Creatinine Equation (2020) Glomerular filtration rate ( GFR) estimation/1.73 sq m using serum, plasma, or whole bOrdered By: Jairon Medel on 05-24-2024 GFR/1.73 sq M.predicted among non-blacks MDRD (S/P/Bld) [Vol rate/Area] 52 mL/min/{1.73_m2} Low >60 [facility] Comment on above: mL/min/1.73m2 CKD-EP I Creatinine Equation (2020) Hematocrit Auto (Bld) [Volum e fraction]Ordered By: Jairon Medel on 05-24-2024 Hematocrit (Bld) [Volume fraction] 33.2 % Low 37-47 [facility] Hemoglobin A1c percentageOrd ered By: Jairon Medel on 05-24-2024 HbA1c (Bld) [Mass fraction] 5.5 % <5.7 [facility] Comment on above: Normal < 5.7 % Predi abetic 5.7 - 6.4 % Diabetic >or= 6.5 % Please note range changes. Hemoglobin measurementOrdere d By: Jairon Medel on 05-24-2024 Hemoglobin (Bld) [Mass/Vol] 10.7 g/dL Low 12.0-15.0 [facility] Immature granulocytes/100 WB C Auto (Bld)Ordered By: Jairon Medel on 05-24-2024 Immature granulocytes/100 WBC (Bld) 0.200 % 0.0-0.9 [facility] Comment on above: IG% - Immature Granu locytes (promyelocytes, myelocytes and metamyelocytes) > 1% indicates that a LEFT SHIFT is Present. Laboratory - Chemistry and C hemistry - challengeOrdered By: Jairon Medel on 05-24-2024 AST [Catalytic activity/Vol] 21 U/L <32 [facility] Lymphocytes Auto (Unsp spec) [#/Vol]Ordered By: Jairon Medel on 05-24-2024 Lymphocytes (Bld) [#/Vol] 1.90 10*3/uL 0.83-4.51 [facility] Lymphocytes/100 WBC Auto (Un sp spec)Ordered By: Jairon Medel on 05-24-2024 Lymphocytes/100 WBC (Bld) 33.6 % 19-41 [facility] MCV (mean corpuscular volume ) determinationOrdered By: Jairon Medel on 05-24-2024 MCV (RBC) [Entitic vol] 86.2 fL 81-99 [facility] Mean corpuscular hemoglobin (MCH) determinationOrdered By: Jairon Medel on 05-24-2024 MCH (RBC) [Entitic mass] 27.8 pg 27.0-32.0 [facility] Mean corpuscular hemoglobin concentration (MCHC) determinationOrdered By: Jairon Medel on 05-24-2024 MCHC (RBC) [Mass/Vol] 32.2 g/dL 32-36 [facility] Mean platelet volume determi nationOrdered By: Jairon Medel on 05-24-2024 Platelet mean volume (Bld) [Entitic vol] 10.2 fL 6.2-12.0 [facility] Monocyte percentageOrdered B y: Jairon Medel on 05-24-2024 Monocytes/100 WBC (Bld) 8.1 % 0-10 [facility] Neutrophil percentageOrdered By: aJiron Medel on 05-24-2024 Neutrophils/100 WBC (Bld) 54.9 % 47-70 [facility] Nucleated red blood cell per centageOrdered By: Jairon Medel on 05-24-2024 Nucleated RBC/100 WBC (Bld) [Ratio] 0 % 0-5 [facility] Platelet countOrdered By: Pooja Medel on 05-24-2024 Platelets (Bld) [#/Vol] 264 10*3/uL 150-450 [facility] Potassium (Unsp spec) [Mass/ Vol]Ordered By: Jairon Medel on 05-24-2024 Potassium [Moles/Vol] 3.9 mmol/L 3.3-5.1 [facility] Potassium measurement (mass/ volume)Ordered By: Jairon Medel on 05-24-2024 Potassium (Unsp spec) [Mass/Vol] 3.9 mmol/L 3.3-5.1 [facility] RBC Auto (Bld) [#/Vol]Ordere d By: Jairon Medel on 05-24-2024 RBC (Bld) [#/Vol] 3.85 10*6/uL Low 4.2-5.4 [facility] [place] Serum creatinine measurement (mass/volume)Ordered By: Jairon Medel on 05-24-2024 Creatinine [Mass/Vol] 1.05 mg/dL 0.70-1.20 [facility] Serum globulin measurementOr dered By: Jairon Medel 05-24-2024 Globulin (S) [Mass/Vol] 2.6 g/dL 2.2-4.2 [facility] Serum glucose measurement (m ass/volume)Ordered By: Jairon Medel on 05-24-2024 Glucose [Mass/Vol] 95 mg/dL 70-99 [facility] Serum or plasma alanine crane otransferase (ALT) measurementOrdered By: Jairon Medel 05-24-2024 ALT [Catalytic activity/Vol] 11 U/L <35 [facility] Serum or plasma albumin krissy urement (mass/volume)Ordered By: Jairon Medel on 05-24-2024 Albumin [Mass/Vol] 4.0 g/dL 3.4-4.8 [facility] Serum or plasma albumin/glob ulin mass ratioOrdered By: Jairon Medel 05-24-2024 Albumin/Globulin [Mass ratio] 1.5 {ratio} 0.9-2.4 [facility] Serum or plasma alkaline luis sphatase measurementOrdered By: Jairon Medel 05-24-2024 ALP [Catalytic activity/Vol] 67 U/L 35-104 [facility] Serum or plasma calcium krissy urement (mass/volume)Ordered By: Jairon Medel on 05-24-2024 Calcium [Mass/Vol] 9.9 mg/dL 7.6-11.0 [facility] Serum or plasma urea nitroge n measurement (mass/volume)Ordered By: Jairon Medel on 05-24-2024 Urea nitrogen [Mass/Vol] 21 mg/dL High 4-19 [facility] Sodium levelOrdered By: Carrillo malcolmrajesh Gianfranco on 05-24-2024 Sodium [Moles/Vol] 141 mmol/L 133-145 [facility] Total proteinOrdered By: Masoud adelemakenzie Medel on 05-24-2024 Protein [Mass/Vol] 6.6 g/dL 5.9-8.4 [facility] White blood cell (WBC) count Ordered By: Jairon Medel on 05-24-2024 WBC (Bld) [#/Vol] 5.7 10*3/uL 4.4-11.0 [facility] Anion gap in Serum or Plasma Ordered By: Jairon Medel on 05-15-2024 Anion gap [Moles/Vol] 10 mmol/L 5-15 [facility] BUN/creatinine ratioOrdered By: Jairon Medel on 05-15-2024 Urea nitrogen/Creatinine [Mass ratio] 15.3 mg/mg 10-20 [facility] Carbon dioxide, total [Moles /volume] in Central venous bloodOrdered By: Jairon Medel on 05-15-2024 CO2 [Moles/Vol] 25.0 mmol/L 21.0-32.0 [facility] Chloride assayOrdered By: Pooja Medel on 05-15-2024 Chloride [Moles/Vol] 108 mmol/L 98-108 [facility] GFR/1.73 sq M.predicted hua g non-blacks MDRD (S/P/Bld) [Vol rate/Area]Ordered By: Jairon Medel on 05-15-2024 Estimated GFR (MDRD) Non-Af Amer 57 Low >60 [facility] Comment on above: mL/min/1.73m2 CKD-EP I Creatinine Equation (2020) Glomerular filtration rate ( GFR) estimation/1.73 sq m using serum, plasma, or whole bOrdered By: Jairon Medel on 05-15-2024 GFR/1.73 sq M.predicted among non-blacks MDRD (S/P/Bld) [Vol rate/Area] 57 mL/min/{1.73_m2} Low >60 [facility] Comment on above: mL/min/1.73m2 CKD-EP I Creatinine Equation (2020) Potassium (Unsp spec) [Mass/ Vol]Ordered By: Jairon Medel on 05-15-2024 Potassium [Moles/Vol] 3.8 mmol/L 3.3-5.1 [facility] Potassium measurement (mass/ volume)Ordered By: Jairon Medel on 05-15-2024 Potassium (Unsp spec) [Mass/Vol] 3.8 mmol/L 3.3-5.1 [facility] Serum creatinine measurement (mass/volume)Ordered By: Jairon Medel on 05-15-2024 Creatinine [Mass/Vol] 0.98 mg/dL 0.70-1.20 [facility] Serum glucose measurement (m ass/volume)Ordered By: Jairon Medel on 05-15-2024 Glucose [Mass/Vol] 87 mg/dL 70-99 [facility] Serum or plasma calcium krissy urement (mass/volume)Ordered By: Jairon Medel on 05-15-2024 Calcium [Mass/Vol] 9.8 mg/dL 7.6-11.0 [facility] Serum or plasma urea nitroge n measurement (mass/volume)Ordered By: Jairon Medel on 05-15-2024 Urea nitrogen [Mass/Vol] 15 mg/dL 4-19 [facility] Sodium levelOrdered By: Carrillo Medel on 05-15-2024 Sodium [Moles/Vol] 143 mmol/L 133-145 [facility] Absolute lymphocyte countOrd ered By: Jairon Medel on 05-01-2024 Lymphocytes Auto (Unsp spec) [#/Vol] 1.90 10*3/uL 0.83-4.51 [facility] Absolute neutrophil countOrd ered By: Jairon Medel on 05-01-2024 Neutrophils (Bld) [#/Vol] 2.7 10*3/uL 2.0-7.7 [facility] Anion gap in Serum or Plasma Ordered By: Jairon Medel on 05-01-2024 Anion gap [Moles/Vol] 11 mmol/L 5-15 [facility] Automated lymphocyte count a s percentage of total leukocytesOrdered By: Jairon Medel on 05-01-2024 Lymphocytes/100 WBC Auto (Unsp spec) 35.5 % 19-41 [facility] BUN/creatinine ratioOrdered By: sreekanthwest chathammakenzie Medel on 05-01-2024 Urea nitrogen/Creatinine [Mass ratio] 17.8 mg/mg 10-20 [facility] Basophil percentageOrdered B y: Jairon Medel on 05-01-2024 Basophils/100 WBC (Bld) 1.5 % High 0-1 [facility] Carbon dioxide, total [Moles /volume] in Central venous bloodOrdered By: Jairon Medel on 05-01-2024 CO2 [Moles/Vol] 23.3 mmol/L 21.0-32.0 [facility] Chloride assayOrdered By: Pooja Medel on 05-01-2024 Chloride [Moles/Vol] 107 mmol/L 98-108 [facility] Eosinophil percentageOrdered By: Jairon Medel on 05-01-2024 Eosinophils/100 WBC (Bld) 2.2 % 0-5 [facility] Erythrocyte distribution wid th (RBC) [Ratio]Ordered By: Jairon Medel on 05-01-2024 Erythrocyte distribution width (RBC) [Entitic vol] 44.5 fL High 35.1-43.9 [facility] Erythrocyte distribution wid th ratioOrdered By: margarette Medel on 05-01-2024 Erythrocyte distribution width (RBC) [Ratio] 13.0 % 11.6-14.6 [facility] Erythrocyte distribution wid th standard deviationOrdered By: Jairon Medel on 05-01-2024 Erythrocyte distribution width (RBC) [Ratio] 44.5 fl High 35.1-43.9 [facility] GFR/1.73 sq M.predicted hua g non-blacks MDRD (S/P/Bld) [Vol rate/Area]Ordered By: Jairon Medel on 05-01-2024 Estimated GFR (MDRD) Non-Af Amer 58 Low >60 [facility] Comment on above: mL/min/1.73m2 CKD-EP I Creatinine Equation (2020) Glomerular filtration rate ( GFR) estimation/1.73 sq m using serum, plasma, or whole bOrdered By: Jairon Medel on 05-01-2024 GFR/1.73 sq M.predicted among non-blacks MDRD (S/P/Bld) [Vol rate/Area] 58 mL/min/{1.73_m2} Low >60 [facility] Comment on above: mL/min/1.73m2 CKD-EP I Creatinine Equation (2020) Hematocrit Auto (Bld) [Volum e fraction]Ordered By: Jairon Medel on 05-01-2024 Hematocrit (Bld) [Volume fraction] 37.3 % 37-47 [facility] Hemoglobin measurementOrdere d By: Jairon Medel on 05-01-2024 Hemoglobin (Bld) [Mass/Vol] 11.3 g/dL Low 12.0-15.0 [facility] Immature granulocytes/100 WB C Auto (Bld)Ordered By: Jairon Medel on 05-01-2024 Immature granulocytes/100 WBC (Bld) 1.100 % High 0.0-0.9 [facility] Comment on above: IG% - Immature Granu locytes (promyelocytes, myelocytes and metamyelocytes) > 1% indicates that a LEFT SHIFT is Present. Lymphocytes Auto (Unsp spec) [#/Vol]Ordered By: Jairon Medel on 05-01-2024 Lymphocytes (Bld) [#/Vol] 1.90 10*3/uL 0.83-4.51 [facility] Lymphocytes/100 WBC Auto (Un sp spec)Ordered By: Jairon Medel on 05-01-2024 Lymphocytes/100 WBC (Bld) 35.5 % 19-41 [facility] MCV (mean corpuscular volume ) determinationOrdered By: Jairon Medel on 05-01-2024 MCV (RBC) [Entitic vol] 93.5 fL 81-99 [facility] Mean corpuscular hemoglobin (MCH) determinationOrdered By: Jairon Medel on 05-01-2024 MCH (RBC) [Entitic mass] 28.3 pg 27.0-32.0 [facility] Mean corpuscular hemoglobin concentration (MCHC) determinationOrdered By: Jairon Medel on 05-01-2024 MCHC (RBC) [Mass/Vol] 30.3 g/dL Low 32-36 [facility] Mean platelet volume determi nationOrdered By: Jairon Medel on 05-01-2024 Platelet mean volume (Bld) [Entitic vol] 10.2 fL 6.2-12.0 [facility] Monocyte percentageOrdered B y: Jairon Medel on 05-01-2024 Monocytes/100 WBC (Bld) 9.0 % 0-10 [facility] Neutrophil percentageOrdered By: Jairon Medel on 05-01-2024 Neutrophils/100 WBC (Bld) 50.7 % 47-70 [facility] Nucleated red blood cell per centageOrdered By: Jairon Medel on 05-01-2024 Nucleated RBC/100 WBC (Bld) [Ratio] 0 % 0-5 [facility] Platelet countOrdered By: Pooja Medel on 05-01-2024 Platelets (Bld) [#/Vol] 235 10*3/uL 150-450 [facility] Potassium (Unsp spec) [Mass/ Vol]Ordered By: Jairon Medel on 05-01-2024 Potassium [Moles/Vol] 4.3 mmol/L 3.3-5.1 [facility] Potassium measurement (mass/ volume)Ordered By: Jairon Medel on 05-01-2024 Potassium (Unsp spec) [Mass/Vol] 4.3 mmol/L 3.3-5.1 [facility] RBC Auto (Bld) [#/Vol]Ordere d By: Jairon Medel on 05-01-2024 RBC (Bld) [#/Vol] 3.99 10*6/uL Low 4.2-5.4 [facility] [place] Serum creatinine measurement (mass/volume)Ordered By: Jairon Medel on 05-01-2024 Creatinine [Mass/Vol] 0.96 mg/dL 0.70-1.20 [facility] Serum glucose measurement (m ass/volume)Ordered By: Jairon Medel on 05-01-2024 Glucose [Mass/Vol] 89 mg/dL 70-99 [facility] Serum or plasma calcium krissy urement (mass/volume)Ordered By: Jairon Medel on 05-01-2024 Calcium [Mass/Vol] 9.8 mg/dL 7.6-11.0 [facility] Serum or plasma urea nitroge n measurement (mass/volume)Ordered By: Jairon Medel on 05-01-2024 Urea nitrogen [Mass/Vol] 17 mg/dL 4-19 [facility] Sodium levelOrdered By: Carrillo Medel on 05-01-2024 Sodium [Moles/Vol] 141 mmol/L 133-145 [facility] White blood cell (WBC) count Ordered By: Jairon Medel on 05-01-2024 WBC (Bld) [#/Vol] 5.4 10*3/uL 4.4-11.0 [facility] Absolute lymphocyte countOrd ered By: Jairon De Leonsophia on 04-03-2024 Lymphocytes Auto (Unsp spec) [#/Vol] 1.70 10*3/uL 0.83-4.51 [facility] Absolute neutrophil countOrd ered By: Jairon Medel on 04-03-2024 Neutrophils (Bld) [#/Vol] 3.0 10*3/uL 2.0-7.7 [facility] Automated lymphocyte count a s percentage of total leukocytesOrdered By: Goldiemakenzie Torojenifersophia on 04-03-2024 Lymphocytes/100 WBC Auto (Unsp spec) 32.1 % 19-41 [facility] Basophil percentageOrdered B y: Jairon De Leonsophia on 04-03-2024 Basophils/100 WBC (Bld) 1.3 % High 0-1 [facility] Blood urea nitrogen (BUN)/cr eatinine ratioOrdered By: Jairon Medel on 04-03-2024 Urea nitrogen/Creatinine [Mass ratio] 21.1 mg/mg High 10-20 [facility] Carbon dioxide measurementOr dered By: Jairon Medel on 04-03-2024 CO2 [Moles/Vol] 27.0 mmol/L 21.0-32.0 [facility] Chloride measurementOrdered By: Jairon Medel on 04-03-2024 Chloride [Moles/Vol] 111 mmol/L High 98-107 [facility] Eosinophil percentageOrdered By: Jairon Medel on 04-03-2024 Eosinophils/100 WBC (Bld) 2.3 % 0-5 [facility] Erythrocyte distribution wid th (RBC) [Ratio]Ordered By: Jairon Medel on 04-03-2024 Erythrocyte distribution width (RBC) [Entitic vol] 43.2 fL 35.1-43.9 [facility] Erythrocyte distribution wid th ratioOrdered By: Jairon Medel on 04-03-2024 Erythrocyte distribution width (RBC) [Ratio] 13.2 % 11.6-14.6 [facility] Erythrocyte distribution wid th standard deviationOrdered By: Jairon Medel on 04-03-2024 Erythrocyte distribution width (RBC) [Ratio] 43.2 fl 35.1-43.9 [facility] Estimated glomerular filtrat ion rate (GFR) AmericanOrdered By: Jairon Medel on 04-03-2024 Estimated GFR (MDRD) Amer 72 mL/min >60 [facility] Comment on above: GFR Calc Glomerular filtration rate ( GFR) estimationOrdered By: Jairon Medel on 04-03-2024 Estimated GFR (MDRD) Non-Af Amer 59 mL/min Low >60 [facility] Comment on above: Non- GFR Calc GFR/1.73 sq M.predicted among non-blacks MDRD (S/P/Bld) [Vol rate/Area] 59 mL/min/{1.73_m2} Low >60 [facility] Comment on above: Non- GFR Calc Glucose measurementOrdered B y: Jairon Medel on 04-03-2024 Glucose [Mass/Vol] 93 mg/dL 74-106 [facility] Hematocrit Auto (Bld) [Volum e fraction]Ordered By: Jairon Cortezjenifersophia on 04-03-2024 Hematocrit (Bld) [Volume fraction] 31.6 % Low 37-47 [facility] Hemoglobin measurementOrdere d By: Jairon Cortezdorcas on 04-03-2024 Hemoglobin (Bld) [Mass/Vol] 9.7 g/dL Low 12.0-15.0 [facility] Immature granulocytes/100 WB C Auto (Bld)Ordered By: sreekanthwest chathammakenzie Torojenifersophia on 04-03-2024 Immature granulocytes/100 WBC (Bld) 0.200 % 0.0-0.9 [facility] Comment on above: IG% - Immature Granu locytes (promyelocytes, myelocytes and metamyelocytes) > 1% indicates that a LEFT SHIFT is Present. Lymphocytes Auto (Unsp spec) [#/Vol]Ordered By: [facility] on 04-03-2024 Lymphocytes (Bld) [#/Vol] 1.70 10*3/uL 0.83-4.51 [facility] Lymphocytes/100 WBC Auto (Un sp spec)Ordered By: Poojasreekanthmahadmakenzie Torojenifersophia on 04-03-2024 Lymphocytes/100 WBC (Bld) 32.1 % 19-41 [facility] MCV (mean corpuscular volume ) determinationOrdered By: Jairon Medel on 04-03-2024 MCV (RBC) [Entitic vol] 91.1 fL 81-99 [facility] Mean corpuscular hemoglobin (MCH) determinationOrdered By: Poojamargarette Medel on 04-03-2024 MCH (RBC) [Entitic mass] 28.0 pg 27.0-32.0 [facility] Mean corpuscular hemoglobin concentration (MCHC) determinationOrdered By: Poojamargarette Medel on 04-03-2024 MCHC (RBC) [Mass/Vol] 30.7 g/dL Low 32-36 [facility] Mean platelet volume determi nationOrdered By: Jairon Medel on 04-03-2024 Platelet mean volume (Bld) [Entitic vol] 9.9 fL 6.2-12.0 [facility] Monocyte percentageOrdered B y: Jairon Medel on 04-03-2024 Monocytes/100 WBC (Bld) 8.3 % 0-10 [facility] Neutrophil percentageOrdered By: Jairon Medel on 04-03-2024 Neutrophils/100 WBC (Bld) 55.8 % 47-70 [facility] Nucleated red blood cell per centageOrdered By: Jairon Medel on 04-03-2024 Nucleated RBC/100 WBC (Bld) [Ratio] 0 % 0-5 [facility] Platelet countOrdered By: Pooja Medel on 04-03-2024 Platelets (Bld) [#/Vol] 229 10*3/uL 150-450 [facility] Potassium measurementOrdered By: Jairon Medel on 04-03-2024 Potassium [Moles/Vol] 4.4 mmol/L 3.5-5.1 [facility] RBC Auto (Bld) [#/Vol]Ordere d By: Jairon Medel on 04-03-2024 RBC (Bld) [#/Vol] 3.47 10*6/uL Low 4.2-5.4 [facility] [place] Serum anion gap measurementO rdered By: Jairon Medel on 04-03-2024 Anion gap [Moles/Vol] 6 mmol/L 5-15 [facility] Serum or plasma calcium krissy urement (mass/volume)Ordered By: Jairon Medel on 04-03-2024 Calcium [Mass/Vol] 9.4 mg/dL 8.5-10.1 [facility] Serum or plasma creatinine m easurement (mass/volume)Ordered By: Jairon Medel on 04-03-2024 Creatinine [Mass/Vol] 0.95 mg/dL 0.55-1.02 [facility] Comment on above: The validity of the calculated GFR & GFRAA in patients over 70 years has not been determined. Clinical correlation is essential. Serum or plasma urea nitroge n measurement (mass/volume)Ordered By: Jairon Medel on 04-03-2024 Urea nitrogen [Mass/Vol] 20 mg/dL High 7-18 [facility] Sodium levelOrdered By: Carrillo braden Gianfranco on 04-03-2024 Sodium [Moles/Vol] 144 mmol/L 136-145 [facility] White blood cell (WBC) count Ordered By: Jairon Torojenifersophia on 04-03-2024 WBC (Bld) [#/Vol] 5.3 10*3/uL 4.4-11.0 [facility] Absolute lymphocyte countOrd ered By: Jairon Medel on 03-27-2024 Lymphocytes Auto (Unsp spec) [#/Vol] 2.06 10*3/uL 0.83-4.51 [facility] Absolute neutrophil countOrd ered By: Jairon Medel on 03-27-2024 Neutrophils (Bld) [#/Vol] 3.3 10*3/uL 2.0-7.7 [facility] Automated lymphocyte count a s percentage of total leukocytesOrdered By: Jairon Medel on 03-27-2024 Lymphocytes/100 WBC Auto (Unsp spec) 33.5 % 19-41 [facility] Basophil percentageOrdered B y: Jairon Medel on 03-27-2024 Basophils/100 WBC (Bld) 0.8 % 0-1 [facility] Blood urea nitrogen (BUN)/cr eatinine ratioOrdered By: Jairon Medel on 03-27-2024 Urea nitrogen/Creatinine [Mass ratio] 19.3 mg/mg 10-20 [facility] Carbon dioxide measurementOr dered By: Jairon Medel on 03-27-2024 CO2 [Moles/Vol] 27.0 mmol/L 21.0-32.0 [facility] Chloride measurementOrdered By: Jairon Medel on 03-27-2024 Chloride [Moles/Vol] 110 mmol/L High 98-107 [facility] Eosinophil percentageOrdered By: Jairon Medel on 03-27-2024 Eosinophils/100 WBC (Bld) 2.3 % 0-5 [facility] Erythrocyte distribution wid th (RBC) [Ratio]Ordered By: Jairon Medel on 03-27-2024 Erythrocyte distribution width (RBC) [Entitic vol] 43.7 fL 35.1-43.9 [facility] Erythrocyte distribution wid th ratioOrdered By: Jairon Medel on 03-27-2024 Erythrocyte distribution width (RBC) [Ratio] 13.2 % 11.6-14.6 [facility] Erythrocyte distribution wid th standard deviationOrdered By: Jairon Medel on 03-27-2024 Erythrocyte distribution width (RBC) [Ratio] 43.7 fl 35.1-43.9 [facility] Estimated glomerular filtrat ion rate (GFR) AmericanOrdered By: Jairon Medel on 03-27-2024 Estimated GFR (MDRD) Amer 69 mL/min >60 [facility] Comment on above: GFR Calc Glomerular filtration rate ( GFR) estimationOrdered By: Jairon Medel on 03-27-2024 Estimated GFR (MDRD) Non-Af Amer 57 mL/min Low >60 [facility] Comment on above: Non- GFR Calc GFR/1.73 sq M.predicted among non-blacks MDRD (S/P/Bld) [Vol rate/Area] 57 mL/min/{1.73_m2} Low >60 [facility] Comment on above: Non- GFR Calc Glucose measurementOrdered B y: Jairon Medel on 03-27-2024 Glucose [Mass/Vol] 89 mg/dL 74-106 [facility] Hematocrit Auto (Bld) [Volum e fraction]Ordered By: Jairon Medel on 03-27-2024 Hematocrit (Bld) [Volume fraction] 30.9 % Low 37-47 [facility] Hemoglobin measurementOrdere d By: Jairon Medel on 03-27-2024 Hemoglobin (Bld) [Mass/Vol] 9.6 g/dL Low 12.0-15.0 [facility] Immature granulocytes/100 WB C Auto (Bld)Ordered By: Jairon Medel on 03-27-2024 Immature granulocytes/100 WBC (Bld) 0.500 % 0.0-0.9 [facility] Comment on above: IG% - Immature Granu locytes (promyelocytes, myelocytes and metamyelocytes) > 1% indicates that a LEFT SHIFT is Present. Lymphocytes Auto (Unsp spec) [#/Vol]Ordered By: Jairon Medel on 03-27-2024 Lymphocytes (Bld) [#/Vol] 2.06 10*3/uL 0.83-4.51 [facility] Lymphocytes/100 WBC Auto (Un sp spec)Ordered By: margarette Medel on 03-27-2024 Lymphocytes/100 WBC (Bld) 33.5 % 19-41 [facility] MCV (mean corpuscular volume ) determinationOrdered By: Jairon Medel on 03-27-2024 MCV (RBC) [Entitic vol] 90.1 fL 81-99 [facility] Mean corpuscular hemoglobin (MCH) determinationOrdered By: Jairon Medel on 03-27-2024 MCH (RBC) [Entitic mass] 28.0 pg 27.0-32.0 [facility] Mean corpuscular hemoglobin concentration (MCHC) determinationOrdered By: Jairon Medel on 03-27-2024 MCHC (RBC) [Mass/Vol] 31.1 g/dL Low 32-36 [facility] Mean platelet volume determi nationOrdered By: Carrillowest chathammakenzie Medel on 03-27-2024 Platelet mean volume (Bld) [Entitic vol] 10.2 fL 6.2-12.0 [facility] Monocyte percentageOrdered B y: Jairon Medel on 03-27-2024 Monocytes/100 WBC (Bld) 9.6 % 0-10 [facility] Neutrophil percentageOrdered By: [facility] on 03-27-2024 Neutrophils/100 WBC (Bld) 53.3 % 47-70 [facility] Nucleated red blood cell per centageOrdered By: margarette Medel on 03-27-2024 Nucleated RBC/100 WBC (Bld) [Ratio] 0 % 0-5 [facility] Platelet countOrdered By: Pooja sreekanthbraden Medel on 03-27-2024 Platelets (Bld) [#/Vol] 235 10*3/uL 150-450 [facility] Potassium measurementOrdered By: Jairon Medel on 03-27-2024 Potassium [Moles/Vol] 4.0 mmol/L 3.5-5.1 [facility] RBC Auto (Bld) [#/Vol]Ordere d By: Jairon Medel on 03-27-2024 RBC (Bld) [#/Vol] 3.43 10*6/uL Low 4.2-5.4 [facility] [place] Serum anion gap measurementO rdered By: Jairon Medel on 03-27-2024 Anion gap [Moles/Vol] 6 mmol/L 5-15 [facility] Serum or plasma calcium krissy urement (mass/volume)Ordered By: Jairon Medel on 03-27-2024 Calcium [Mass/Vol] 9.3 mg/dL 8.5-10.1 [facility] Serum or plasma creatinine m easurement (mass/volume)Ordered By: Jairon Medel on 03-27-2024 Creatinine [Mass/Vol] 0.98 mg/dL 0.55-1.02 [facility] Comment on above: The validity of the calculated GFR & GFRAA in patients over 70 years has not been determined. Clinical correlation is essential. Serum or plasma urea nitroge n measurement (mass/volume)Ordered By: Jairon Medel on 03-27-2024 Urea nitrogen [Mass/Vol] 19 mg/dL High 7-18 [facility] Sodium levelOrdered By: Carrillo plascenciasophia Gianfranco on 03-27-2024 Sodium [Moles/Vol] 143 mmol/L 136-145 [facility] White blood cell (WBC) count Ordered By: Jairon Medel on 03-27-2024 WBC (Bld) [#/Vol] 6.2 10*3/uL 4.4-11.0 [facility] [id number] DOrdered By: Sophia Medel on 02-28-2024 Vitamin D 25-Hydroxy 60.8 ng/mL [facility] Comment on above: Vitamin D 25(OH) Sta tus Range Deficiency <20 ng/mL (50nmol/L) Insufficiency 20 - 30 ng/mL (50 - 75 nmol/L) Sufficiency 30 - 100 ng/mL (75 - 250 nmol/L) Toxicity >100 ng/mL (>250 nmol/L) Absolute lymphocyte countOrd ered By: Jairon Medel on 02-28-2024 Lymphocytes Auto (Unsp spec) [#/Vol] 1.75 10*3/uL 0.83-4.51 [facility] Absolute neutrophil countOrd ered By: Jairon Medel on 02-28-2024 Neutrophils (Bld) [#/Vol] 3.9 10*3/uL 2.0-7.7 [facility] Albumin to globulin ratioOrd ered By: Jairon Medel on 02-28-2024 Albumin/Globulin [Mass ratio] 1.0 {ratio} 0.9-2.4 [facility] Automated lymphocyte count a s percentage of total leukocytesOrdered By: Jairon Medel on 02-28-2024 Lymphocytes/100 WBC Auto (Unsp spec) 27.3 % 19-41 [facility] Basophil percentageOrdered B y: Jairon Medel on 02-28-2024 Basophils/100 WBC (Bld) 0.8 % 0-1 [facility] Bilirubin, totalOrdered By: Jairon Medel on 02-28-2024 Bilirubin [Mass/Vol] 0.20 mg/dL 0.20-1.00 [facility] Comment on above: For patients on eltr ombopag therapy, use of Dimension Speculator TBIL is not recommended. Blood urea nitrogen (BUN)/cr eatinine ratioOrdered By: Jairon Medel on 02-28-2024 Urea nitrogen/Creatinine [Mass ratio] 24.1 mg/mg High 10- [facility] Carbon dioxide measurementOr dered By: Jairon Medel on 02-28-2024 CO2 [Moles/Vol] 27.0 mmol/L 21.0-32.0 [facility] Chloride measurementOrdered By: Jairon Medel on 02-28-2024 Chloride [Moles/Vol] 111 mmol/L High 98-107 [facility] Eosinophil percentageOrdered By: Jairon Medel on 02-28-2024 Eosinophils/100 WBC (Bld) 2.3 % 0-5 [facility] Erythrocyte distribution wid th (RBC) [Ratio]Ordered By: Jairon Medel on 02-28-2024 Erythrocyte distribution width (RBC) [Entitic vol] 43.7 fL 35.1-43.9 [facility] Erythrocyte distribution wid th ratioOrdered By: Jairon Medel on 02-28-2024 Erythrocyte distribution width (RBC) [Ratio] 13.4 % 11.6-14.6 [facility] Erythrocyte distribution wid th standard deviationOrdered By: Jairon Medel on 02-28-2024 Erythrocyte distribution width (RBC) [Ratio] 43.7 fl 35.1-43.9 [facility] Estimated glomerular filtrat ion rate (GFR) AmericanOrdered By: Jairon Medel on 02-28-2024 Estimated GFR (MDRD) Amer 72 mL/min >60 [facility] Comment on above: GFR Calc Glomerular filtration rate ( GFR) estimationOrdered By: Jairon Medel on 02-28-2024 Estimated GFR (MDRD) Non-Af Amer 59 mL/min Low >60 [facility] Comment on above: Non- GFR Calc GFR/1.73 sq M.predicted among non-blacks MDRD (S/P/Bld) [Vol rate/Area] 59 mL/min/{1.73_m2} Low >60 [facility] Comment on above: Non- GFR Calc Glucose measurementOrdered B y: Jairon Medel on 02-28-2024 Glucose [Mass/Vol] 93 mg/dL 74-106 [facility] Hematocrit Auto (Bld) [Volum e fraction]Ordered By: Jairon Medel on 02-28-2024 Hematocrit (Bld) [Volume fraction] 32.1 % Low 37-47 [facility] Hemoglobin measurementOrdere d By: Jairon Medel on 02-28-2024 Hemoglobin (Bld) [Mass/Vol] 9.9 g/dL Low 12.0-15.0 [facility] High density lipoprotein (HD L) measurementOrdered By: Jairon Medel on 02-28-2024 Cholesterol in HDL [Mass/Vol] 58 mg/dL >40 [facility] Comment on above: The drugs N-Acetylcy steine and Metamizole may falsely depress this assay. Reference Range HDL <40 mg/dL Low HDL Cholesterol HDL >or= 60 mg/dL High HDL Cholesterol Immature granulocytes/100 WB C Auto (Bld)Ordered By: Jairon Medel on 02-28-2024 Immature granulocytes/100 WBC (Bld) 0.300 % 0.0-0.9 [facility] Comment on above: IG% - Immature Granu locytes (promyelocytes, myelocytes and metamyelocytes) > 1% indicates that a LEFT SHIFT is Present. Laboratory - Chemistry and C hemistry - challengeOrdered By: Jairon Medel on 02-28-2024 AST [Catalytic activity/Vol] 15 U/L 15-37 [facility] Low density lipoprotein (LDL ) cholesterol measurementOrdered By: Jairon Medel on 02-28-2024 Cholesterol in LDL [Mass/Vol] 67 mg/dL 0-130 [facility] Lymphocytes Auto (Unsp spec) [#/Vol]Ordered By: Jairon Medel on 02-28-2024 Lymphocytes (Bld) [#/Vol] 1.75 10*3/uL 0.83-4.51 [facility] Lymphocytes/100 WBC Auto (Un sp spec)Ordered By: Jairon Medel on 02-28-2024 Lymphocytes/100 WBC (Bld) 27.3 % 19-41 [facility] MCV (mean corpuscular volume ) determinationOrdered By: Jairon Medel on 02-28-2024 MCV (RBC) [Entitic vol] 89.4 fL 81-99 [facility] Mean corpuscular hemoglobin (MCH) determinationOrdered By: Jairon Medel on 02-28-2024 MCH (RBC) [Entitic mass] 27.6 pg 27.0-32.0 [facility] Mean corpuscular hemoglobin concentration (MCHC) determinationOrdered By: Jairon Medel on 02-28-2024 MCHC (RBC) [Mass/Vol] 30.8 g/dL Low 32-36 [facility] Mean platelet volume determi nationOrdered By: Jairon Medel on 02-28-2024 Platelet mean volume (Bld) [Entitic vol] 9.6 fL 6.2-12.0 [facility] Monocyte percentageOrdered B y: Jairon Medel on 02-28-2024 Monocytes/100 WBC (Bld) 8.7 % 0-10 [facility] Neutrophil percentageOrdered By: Jairon Medel on 02-28-2024 Neutrophils/100 WBC (Bld) 60.6 % 47-70 [facility] Nucleated red blood cell per centageOrdered By: Jairon Medel on 02-28-2024 Nucleated RBC/100 WBC (Bld) [Ratio] 0 % 0-5 [facility] Platelet countOrdered By: Pooja Medel on 02-28-2024 Platelets (Bld) [#/Vol] 261 10*3/uL 150-450 [facility] Potassium measurementOrdered By: Jairon Medel on 02-28-2024 Potassium [Moles/Vol] 4.1 mmol/L 3.5-5.1 [facility] RBC Auto (Bld) [#/Vol]Ordere d By: Jairon Medel on 02-28-2024 RBC (Bld) [#/Vol] 3.59 10*6/uL Low 4.2-5.4 [facility] [place] Serum anion gap measurementO rdered By: Jairon Medel on 02-28-2024 Anion gap [Moles/Vol] 4 mmol/L Low 5-15 [facility] Serum globulin measurementOr dered By: Jairon Medel on 02-28-2024 Globulin (S) [Mass/Vol] 2.9 g/dL 2.2-4.2 [facility] Serum or plasma alanine crane otransferase (ALT) measurementOrdered By: Jairon Medel on 02-28-2024 ALT [Catalytic activity/Vol] 17 U/L 13-56 [facility] Serum or plasma albumin krissy urement (mass/volume)Ordered By: Jairon Medel on 02-28-2024 Albumin [Mass/Vol] 2.8 g/dL Low 3.2-5.0 [facility] Serum or plasma alkaline luis sphatase measurementOrdered By: Jairon Medel on 02-28-2024 ALP [Catalytic activity/Vol] 63 U/L 45-117 [facility] Serum or plasma calcium krissy urement (mass/volume)Ordered By: Jairon Medel on 02-28-2024 Calcium [Mass/Vol] 9.6 mg/dL 8.5-10.1 [facility] Serum or plasma cholesterol measurement (mass/volume)Ordered By: Jairon Medel on 02-28-2024 Cholesterol [Mass/Vol] 134 mg/dL <200 [facility] Comment on above: <200 mg/dL Desirable 200-240 mg/dL Borderline >240 mg/dL High Risk Serum or plasma creatinine m easurement (mass/volume)Ordered By: Jairon Medel on 02-28-2024 Creatinine [Mass/Vol] 0.95 mg/dL 0.55-1.02 [facility] Comment on above: The validity of the calculated GFR & GFRAA in patients over 70 years has not been determined. Clinical correlation is essential. Serum or plasma urea nitroge n measurement (mass/volume)Ordered By: Jairon Medel on 02-28-2024 Urea nitrogen [Mass/Vol] 23 mg/dL High 7-18 [facility] Sodium levelOrdered By: Carrillo malcolmrajesh Gianfranco on 02-28-2024 Sodium [Moles/Vol] 143 mmol/L 136-145 [facility] Total proteinOrdered By: Masoud Medel on 02-28-2024 Protein [Mass/Vol] 5.7 g/dL Low 6.4-8.2 [facility] Triglycerides measurementOrd ered By: Jairon Medel on 02-28-2024 Triglyceride [Mass/Vol] 43 mg/dL <199 [facility] Comment on above: The drugs N-Acetylcy steine and Metamizole may falsely depress this assay.Serum Triglycerides Reference Interval Normal <150 mg/dL Borderline high 150 - 199 mg/dL High 200 - 499 mg/dL Very High > or = 500 mg/dL Valproate levelOrdered By: Sophia Medel on 02-28-2024 Valproic Acid (Depakene) Level 26 ug/mL Low 50-100 [facility] Very low density lipoprotein (VLDL) cholesterol measurementOrdered By: Jairon Medel on 02-28-2024 Very low density lipoprotein (VLDL) cholesterol measurement 9 mg/dL 5-40 [facility] VLDL Cholesterol 9 mg/dL -40 [facility] White blood cell (WBC) count Ordered By: Jairon Medel on 02-28-2024 WBC (Bld) [#/Vol] 6.4 10*3/uL 4.4-11.0 [facility] .Auto Diffon 02-10-2024 Basophil, Absolute 0.1 10 3/mcL Normal 0.0-0.2 [facility] Comment on above: Performed By: #### B MP, MG, ANEU, ADIFF, CBC, GFR ####[place] [address] [place], [place] [address] Basophils/100 WBC (Bld) 1.1 % Normal 0.0-2.5 [facility] Comment on above: Performed By: #### B MP, MG, ANEU, ADIFF, CBC, GFR ####[place] [address] [place], [place] [address] Eosinophil, Absolute 0.1 10 3/mcL Normal 0.0-0.7 [facility] Comment on above: Performed By: #### B MP, MG, ANEU, ADIFF, CBC, GFR ####[place] [address] [place], [place] [address] Eosinophils/100 WBC (Bld) 1.8 % Normal 0.0-7.0 [facility] Comment on above: Performed By: #### B MP, MG, ANEU, ADIFF, CBC, GFR ####[place] [address] [place], [place] [address] Lymphocyte, Absolute 1.4 10 3/mcL Normal 0.9-4.3 [facility] Comment on above: Performed By: #### B MP, MG, ANEU, ADIFF, CBC, GFR ####[facility] [place], [place] [address] Lymphocytes/100 WBC (Bld) 25.4 % Normal 20.0-40.0 [facility] Comment on above: Performed By: #### B MP, MG, ANEU, ADIFF, CBC, GFR ####[place] [address] [place], [place] [address] Monocyte, Absolute 0.4 10 3/mcL Normal 0.1-1.4 [facility] Comment on above: Performed By: #### B MP, MG, ANEU, ADIFF, CBC, GFR ####[place] [address] [place], [place] [address] Monocytes/100 WBC (Bld) 7.4 % Normal 2.0-13.0 [facility] Comment on above: Performed By: #### B MP, MG, ANEU, ADIFF, CBC, GFR ####[place] [address] [place], [place] [address] Neutrophils/100 WBC (Bld) 64.3 % Normal 50.0-75.0 [facility] Comment on above: Performed By: #### B MP, MG, ANEU, ADIFF, CBC, GFR ####[place] [address] [place], [place] [address] .GFRon 02-10-2024 GFR 73 ml/min/1.73sqm Normal [facility] Comment on above: Result Comment: GFR Population [...] B MP, MG, ANEU, ADIFF, CBC, GFR ####[facility] [place], [place] [address] GFR Non- 60 ml/min/1.73sqm Normal [facility] Comment on above: Result Comment: GFR Population [...] B MP, MG, ANEU, ADIFF, CBC, GFR ####[place] [address] [place], [place] [address] .NEUABSon 02-10-2024 Neutrophil, Absolute 3.7 10 3/mcL Normal 2.3-8.1 [facility] Comment on above: Performed By: #### B MP, MG, ANEU, ADIFF, CBC, GFR ####[place] [address] [place], [place] [address] BMPon 02-10-2024 BUN/Creatinine Ratio 25 ratio Normal 7-27 [facility] Comment on above: Performed By: #### B MP, MG, ANEU, ADIFF, CBC, GFR ####[place] [address] [place], [place] [address] Calcium [Mass/Vol] 10.0 mg/dL Normal 8.4-10.2 [facility] Comment on above: Performed By: #### B MP, MG, ANEU, ADIFF, CBC, GFR ####[place] [address] [address] Chloride [Moles/Vol] 107 mmol/L Normal 98-107 [facility] Comment on above: Performed By: #### B MP, MG, ANEU, ADIFF, CBC, GFR ####[place] [address] CO2 [Moles/Vol] 30 mmol/L Normal 23-31 [facility] Comment on above: Performed By: #### B MP, MG, ANEU, ADIFF, CBC, GFR ####[place] [id number] Creatinine [Mass/Vol] 0.89 mg/dL Normal 0.55-1.02 [facility] Comment on above: Result Comment: Test ing performed on [employer] Dimension EXL analyzer using a modified kinetic Dora technique. Performed By: #### B MP, MG, ANEU, ADIFF, CBC, GFR ####[place] [address] Electrolyte Balance 8.0 mEq/L Normal 4.0-15.0 [facility] Comment on above: Performed By: #### B MP, MG, ANEU, ADIFF, CBC, GFR ####[place] [address] Glucose [Mass/Vol] 111 mg/dL High 83-110 [facility] Comment on above: Performed By: #### B MP, MG, ANEU, ADIFF, CBC, GFR ####[place] [address] Potassium [Moles/Vol] 4.0 mmol/L Normal 3.5-5.1 [facility] Comment on above: Performed By: #### B MP, MG, ANEU, ADIFF, CBC, GFR ####[place] [address] Sodium [Moles/Vol] 145 mmol/L Normal 136-145 [facility] Comment on above: Performed By: #### B MP, MG, ANEU, ADIFF, CBC, GFR ####[place] [id number] Urea nitrogen [Mass/Vol] 22 mg/dL High 7-18 [facility] Comment on above: Performed By: #### B MP, MG, ANEU, ADIFF, CBC, GFR ####[place] [place], [place] [address] CBCon 02-10-2024 Erythrocyte distribution width (RBC) [Ratio] 14.1 % Normal 11.5-15.5 [facility] Comment on above: Performed By: #### B MP, MG, ANEU, ADIFF, CBC, GFR ####[place] [place], [place] [address] Hematocrit (Bld) [Volume fraction] 33.2 % Low 34.0-46.0 [facility] Comment on above: Performed By: #### B MP, MG, ANEU, ADIFF, CBC, GFR ####[place] [address] [place] [address] Hgb 11.3 G/dL Low 12.0-16.0 [facility] Comment on above: Performed By: #### B MP, MG, ANEU, ADIFF, CBC, GFR ####[place] [address] [place] [id number] MCH (RBC) [Entitic mass] 28.8 pg Normal 27.0-33.0 [facility] Comment on above: Performed By: #### B MP, MG, ANEU, ADIFF, CBC, GFR ####[place] [address] [address] MCHC 34.1 G/dL Normal 32.0-36.0 [facility] Comment on above: Performed By: #### B MP, MG, ANEU, ADIFF, CBC, GFR ####[place] [address] [place] [id number] MCV (RBC) [Entitic vol] 84.5 fL Normal 80.0-99.0 [facility] Comment on above: Performed By: #### B MP, MG, ANEU, ADIFF, CBC, GFR ####[place] [address] [place], [place] [address] Platelet 272 10 3/mcL Normal 150-450 [facility] Comment on above: Performed By: #### B MP, MG, ANEU, ADIFF, CBC, GFR ####[place] [address] [place], [place] [address] Platelet mean volume (Bld) [Entitic vol] 7.7 fL Normal 6.6-10.5 [facility] Comment on above: Performed By: #### B MP, MG, ANEU, ADIFF, CBC, GFR ####[place] [address] [place], [place] [address] RBC 3.93 10 6/mcL Low 4.10-5.30 [facility] Comment on above: Performed By: #### B MP, MG, ANEU, ADIFF, CBC, GFR ####[place] [address], [place] [address] WBC 5.7 10 3/mcL Normal 4.5-10.8 [facility] Comment on above: Performed By: #### B MP, MG, ANEU, ADIFF, CBC, GFR ####[place] [address] [place], [place] [address] LABORATORYOrdered By: SYSTEM SYSTEM on 02-10-2024 Basophils [...] 02-10-2024 Magnesium [Mass/Vol] 1.7 mg/dL Low 1.8-2.4 [facility] Comment on above: Performed By: #### B MP, MG, ANEU, ADIFF, CBC, GFR ####[place] [address] [place], [place] [address] .Auto Diffon 02-09-2024 Basophil, Absolute 0.1 10 3/mcL Normal 0.0-0.2 [facility] Comment on above: Performed By: #### B MP, MDW, GFR, ANEU, TROPHS, PBNP, CBC, ADIFF ####[place] [address], [place] [address] Basophils/100 WBC (Bld) 1.1 % Normal 0.0-2.5 [facility] Comment on above: Performed By: #### B JEISON, MDW, GFR, ANEU, TROPHS, PBNP, CBC, ADIFF ####[place] [address], [place] [address] Eosinophil, Absolute 0.1 10 3/mcL Normal 0.0-0.7 [facility] Comment on above: Performed By: #### B JEISON, W, GFR, ANEU, TROPHS, PBNP, CBC, ADIFF ####[place] [address], [place] [address] Eosinophils/100 WBC (Bld) 1.6 % Normal 0.0-7.0 [facility] Comment on above: Performed By: #### B JEISON, W, GFR, ANEU, TROPHS, PBNP, CBC, ADIFF ####[place] [address], [place] [address] Lymphocyte, Absolute 2.2 10 3/mcL Normal 0.9-4.3 [facility] Comment on above: Performed By: #### B JEISON, MDW, GFR, ANEU, TROPHS, PBNP, CBC, ADIFF ####[place] [address], [place] [address] Lymphocytes/100 WBC (Bld) 29.4 % Normal 20.0-40.0 [facility] Comment on above: Performed By: #### B MP, MDW, GFR, ANEU, TROPHS, PBNP, CBC, ADIFF ####[place] [address], [place] [address] Monocyte, Absolute 0.7 10 3/mcL Normal 0.1-1.4 [facility] Comment on above: Performed By: #### B MP, MDW, GFR, ANEU, TROPHS, PBNP, CBC, ADIFF ####[place] [address], [place] [address] Monocytes/100 WBC (Bld) 9.6 % Normal 2.0-13.0 [facility] Comment on above: Performed By: #### B JEISON, W, GFR, ANEU, TROPHS, PBNP, CBC, ADIFF ####[place] [address], [place] [address] Neutrophils/100 WBC (Bld) 58.3 % Normal 50.0-75.0 [facility] Comment on above: Performed By: #### B JEISON, W, GFR, ANEU, TROPHS, PBNP, CBC, ADIFF ####[facility] [place], [place] [address] .GFRon 02-09-2024 GFR 67 ml/min/1.73sqm Normal [facility] Comment on above: Result Comment: GFR Population [...] square meters Performed By: #### B MP, MDW, GFR, ANEU, TROPHS, PBNP, CBC, ADIFF ####[place] [address], [place] [address] GFR Non- 55 ml/min/1.73sqm Normal [facility] Comment on above: Result Comment: GFR Population [...] square meters Performed By: #### B MP, MDW, GFR, ANEU, TROPHS, PBNP, CBC, ADIFF ####[facility] [place], [place] [address] .MDWon 02-09-2024 Monocyte Distribution Width 17.09 Normal 0.00-20.00 [facility] Comment on above: Result Comment: For ED adult patients suspected of sepsis, MDW<=20.0 does not rule out sepsis or risk of sepsis Performed By: #### B MP, MDW, GFR, ANEU, TROPHS, PBNP, CBC, ADIFF ####[place] [address], [place] [address] .NEUABSon 02-09-2024 Neutrophil, Absolute 4.4 10 3/mcL Normal 2.3-8.1 [facility] Comment on above: Performed By: #### B MP, MDW, GFR, ANEU, TROPHS, PBNP, CBC, ADIFF ####[facility] [place], [place] [address] BMPon 02-09-2024 BUN/Creatinine Ratio 26 ratio Normal 7-27 [facility] Comment on above: Performed By: #### B MP, MDW, GFR, ANEU, TROPHS, PBNP, CBC, ADIFF ####[address] [address] Calcium [Mass/Vol] 10.4 mg/dL High 8.4-10.2 [facility] Comment on above: Performed By: #### B NAFISA MCHUGH, GFR, ANEU, TROPHS, PBNP, CBC, ADIFF ####[facility] [place], [place] [address] Chloride [Moles/Vol] 104 mmol/L Normal 98-107 [facility] Comment on above: Performed By: #### B NAFISA MCHUGH, GFR, ANEU, TROPHS, PBNP, CBC, ADIFF ####[place] [address] [place], [place] [address] CO2 [Moles/Vol] 30 mmol/L Normal 23-31 [facility] Comment on above: Performed By: #### B NAFISA MCHUGH, GFR, ANEU, TROPHS, PBNP, CBC, ADIFF ####[place] [address] [place], [place] [address] Creatinine [Mass/Vol] 0.96 mg/dL Normal 0.55-1.02 [facility] Comment on above: Result Comment: Test ing performed on Siemens Dimension EXL analyzer using a modified kinetic Dora technique. Performed By: #### B NAFISA MCHUGH, GFR, ANEU, TROPHS, PBNP, CBC, ADIFF ####[place] [address], [place] [address] Electrolyte Balance 10.0 mEq/L Normal 4.0-15.0 [facility] Comment on above: Performed By: #### B NAFISA MCHUGH, GFR, ANEU, TROPHS, PBNP, CBC, ADIFF ####[place] [address], [place] [address] Glucose [Mass/Vol] 108 mg/dL Normal 83-110 [facility] Comment on above: Performed By: #### B NAFISA MCHUGH, GFR, ANEU, TROPHS, PBNP, CBC, ADIFF ####[place] [address] [place], [place] [address] Potassium [Moles/Vol] 3.6 mmol/L Normal 3.5-5.1 [facility] Comment on above: Performed By: #### B NAFISA MCHUGH, GFR, ANEU, TROPHS, PBNP, CBC, ADIFF ####[place] [address], [place] [address] Sodium [Moles/Vol] 144 mmol/L Normal 136-145 [facility] Comment on above: Performed By: #### B NAFISA MCHUGH, GFR, ANEU, TROPHS, PBNP, CBC, ADIFF ####[place] [address] [place] [address] Urea nitrogen [Mass/Vol] 25 mg/dL High 7-18 [facility] Comment on above: Performed By: #### B NAFISA MCHUGH, GFR, ANEU, TROPHS, PBNP, CBC, ADIFF ####[place] [address], [place] [address] CBCon 02-09-2024 Erythrocyte distribution width (RBC) [Ratio] 14.0 % Normal 11.5-15.5 [facility] Comment on above: Performed By: #### B NAFISA MCHUGH, GFR, ANEU, TROPHS, PBNP, CBC, ADIFF ####[place] [address] [place] [address] Hematocrit (Bld) [Volume fraction] 34.7 % Normal 34.0-46.0 [facility] Comment on above: Performed By: #### B NAFISA MCHUGH, GFR, ANEU, TROPHS, PBNP, CBC, ADIFF ####[place] [address] [place], [place] [address] Hgb 11.7 G/dL Low 12.0-16.0 [facility] Comment on above: Performed By: #### B NAFISA MCHUGH, GFR, ANEU, TROPHS, PBNP, CBC, ADIFF ####[place] [address] [place], [place] [address] MCH (RBC) [Entitic mass] 28.7 pg Normal 27.0-33.0 [facility] Comment on above: Performed By: #### B NAFISA MCHUGH, GFR, ANEU, TROPHS, PBNP, CBC, ADIFF ####[place] [address], [place] [address] MCHC 33.7 G/dL Normal 32.0-36.0 [facility] Comment on above: Performed By: #### B NAFISA MCHUGH, GFR, ANEU, TROPHS, PBNP, CBC, ADIFF ####[place] [address], [place] [address] MCV (RBC) [Entitic vol] 85.0 fL Normal 80.0-99.0 [facility] Comment on above: Performed By: #### B NAFISA MCHUGH, GFR, ANEU, TROPHS, PBNP, CBC, ADIFF ####[place] [address], [place] [address] Platelet 266 10 3/mcL Normal 150-450 [facility] Comment on above: Performed By: #### B NAFISA MCHUGH, GFR, ANEU, TROPHS, PBNP, CBC, ADIFF ####[place] [address], [place] [address] Platelet mean volume (Bld) [Entitic vol] 7.4 fL Normal 6.6-10.5 [facility] Comment on above: Performed By: #### B NAFISA MCHUGH, GFR, ANEU, TROPHS, PBNP, CBC, ADIFF ####[place] [address], [place] [address] RBC 4.08 10 6/mcL Low 4.10-5.30 [facility] Comment on above: Performed By: #### B NAFISA MCHUGH, GFR, ANEU, TROPHS, PBNP, CBC, ADIFF ####[place] [address], [place] [address] WBC 7.6 10 3/mcL Normal 4.5-10.8 [facility] Comment on above: Performed By: #### B NAFISA MCHUGH, GFR, ANEU, TROPHS, PBNP, CBC, ADIFF ####[place] [address], [place] [address] LABORATORYOrdered By: Addis Pelayo on 02-09-2024 Appearance [...] ng/L Male: 0-76 ng/L Testing performed on [employer] using a homogeneous sandwich chemiluminescent immunoassay based on [employer] technology. Urea nitrogen [Mass/Vol] 25 mg/dL High 7 - 18 mg/dL AO ADM SS Urea nitrogen/Creatinine [Mass ratio] 26 ratio Normal 7 - 27 ratio AO ADM SS WBC (Bld) [#/Vol] 7.6 103/mcL Normal 4.5 - 10.8 10^3/mcL AO Workflow SS PBNPon 02-09-2024 Natriuretic peptide B (Bld) [Mass/Vol] 3243 pg/mL High 0-450 [facility] Comment on above: Result Comment: NT-p roBNP results of less than 300 pg/mL effectively rules out acute congestive heart failure with 99% negative predictive value. Performed By: #### B NAFISA MCHUGH, GFR, ANEU, TROPHS, PBNP, CBC, ADIFF ####[place] [address], [place] [address] TROPHSon 02-09-2024 High Sensitivity Troponin I 23 ng/L Normal 0-51 [facility] Comment on above: Result Comment: High Sensitive Troponin I Reference Ranges: Female: 0-51 ng/L Male: 0-76 ng/L Testing performed on [employer] using a homogeneous sandwich chemiluminescent immunoassay based on [employer] technology. Performed By: #### B NAFISA MCHUGH, GFR, ANEU, TROPHS, PBNP, CBC, ADIFF ####[place] [address], [place] [address] UAon 02-09-2024 Color (U) Yellow Normal [facility] Comment on above: Performed By: #### U A ####[place] [address], [place] [address] Glucose (U) [Mass/Vol] Negative Normal Negative [facility] Comment on above: Performed By: #### U A ####[place] [address] [place] [address] Ketones Ql (U) Negative Normal Negative [facility] Comment on above: Performed By: #### U A ####[place] [address] [address] UA Appear Clear Normal Clear [facility] Comment on above: Performed By: #### U A ####[address] [place] [address] UA Blood Negative Normal Negative [facility] Comment on above: Performed By: #### U A ####[place] [address] [address] UA Leuk Est Negative Normal Negative [facility] Comment on above: Performed By: #### U A ####[place] [address] [address] UA Nitrite Negative Normal Negative [facility] Comment on above: Performed By: #### U A ####[place] [address] [address] UA pH 6.5 Normal 5.0 - 8.0 [facility] Comment on above: Performed By: #### U A ####[place] [address] [place] [address] UA Protein Negative Normal Negative [facility] Comment on above: Performed By: #### U A ####[place] [address] [place] [address] UA Spec Grav 1.015 Normal 1.015-1.025 [facility] Comment on above: Performed By: #### U A ####[place] [address] [place] [address] UA Specimen Type Void Normal [facility] Comment on above: Performed By: #### U A ####[place] [address] [place] [address] UA Urobilinogen 0.2 E.U./dL Normal 0.2-1.0 [facility] Comment on above: Performed By: #### U A ####[place] [address] [place], [place] [address] Urobilinogen (U) [Mass/Vol] Negative Normal Negative [facility] Comment on above: Performed By: #### U A ####[place] [address] [place], [place] [address] VALPRon 02-09-2024 LDose Valproic Acid: Unknown Normal [facility] Comment on above: Performed By: #### V ALPR ####[place] [address] [place], [place] [address] Valproic Acid Lvl 30 mcg/mL Low 50-100 [facility] Comment on above: Performed By: #### V ALPR ####[place] [address] [place], [place] [address] XR CHEST 1 VIEWon 02-09-2024 XR CHEST [...] 02/09/2024 9:08:10 PM Ordering Provider: TRIXIE BARONE [facility] .Urinalysis Microscopic (AO) on 01-21-2024 UA Amorphus 1+ /hpf Normal [facility] Comment on above: Performed By: #### U A, UAMICAO ####[place] [address] [place], [place] [address] UA CA Ox Crystal 1+ /hpf Normal [facility] Comment on above: Performed By: #### U A, UAMICAO ####[place] [address] [place] [address] UA Mucous 2+ /hpf Normal [facility] Comment on above: Performed By: #### U A, UAMICAO ####[place] [address] [place] [address] UA RBC 0-5 Abnormal None Seen [facility] Comment on above: Performed By: #### U A, UAMICAO ####[place] [address] [place] [address] UA Squam Epithelial 0-5 Abnormal None Seen [facility] Comment on above: Performed By: #### U A, UAMICAO ####[place] [address] [place] [address] UA WBC 0-5 Abnormal None Seen [facility] Comment on above: Performed By: #### U A, UAMICAO ####[place] [address] [place] [address] LABORATORYOrdered By: Mao Nava on 01-21-2024 Appearance [...] SS UAon 01-21-2024 Color (U) Yellow Normal [facility] Comment on above: Performed By: #### U A, UAMICAO ####[place] [address] [place] [address] Glucose (U) [Mass/Vol] Negative Normal Negative [facility] Comment on above: Performed By: #### U A, UAMICAO ####[place] [address] [place], [place] [address] Ketones Ql (U) Negative Normal Negative [facility] Comment on above: Performed By: #### U A, UAMICAO ####[place] [address] [place], [place] [address] UA Appear Clear Normal Clear [facility] Comment on above: Performed By: #### U A, UAMICAO ####[place] [address], [place] [address] UA Blood Negative Normal Negative [facility] Comment on above: Performed By: #### U A, UAMICAO ####[place] [address] [place], [place] [address] UA Leuk Est Negative Normal Negative [facility] Comment on above: Performed By: #### U A, UAMICAO ####[id number] [place] [address] UA Nitrite Negative Normal Negative [facility] Comment on above: Performed By: #### U A UAMICAO ####[address] [place] [address] UA pH 6.0 Normal 5.0 - 8.0 [facility] Comment on above: Performed By: #### U A, UAMICAO ####[id number] [place] [address] UA Protein 30 mg/dL Normal Negative [facility] Comment on above: Performed By: #### U A UAMICAO ####[address] [place] [address] UA Spec Grav 1.020 Normal 1.015-1.025 [facility] Comment on above: Performed By: #### U A UAMICAO ####[address] [place] [address] UA Specimen Type Hua Catheter Normal [facility] Comment on above: Performed By: #### U A UAMICAO ####[place] [address] [place] [address] UA Urobilinogen 0.2 E.U./dL Normal 0.2-1.0 [facility] [facility] Comment on above: Performed By: #### U A UAMICAO ####[place] [address] [address] Urobilinogen (U) [Mass/Vol] Negative Normal Negative [facility] Comment on above: Performed By: #### U A, UAMICAO ####[place] [address] US BLADDERon 01-07-2024 US BLADDER ORIGINAL EXAMINATION: [...] 01/07/2024 11:24:46 AM Ordering Provider: LARRY THOMAS [facility] .GFRon 12-29-2023 GFR 54 ml/min/1.73sqm [facility] Comment on above: Result Comment: GFR [...] mL/min/1.73 square meters Performed By: #### G LINDA SPAULDING CAION ####[place] [address] [address] GFR Non- 44 ml/min/1.73sqm [facility] Comment on above: Result Comment: GFR [...] By: #### G FR, BMP, CAION ####[address] [place], [place] [address] BMPon 12-29-2023 BUN/Creatinine Ratio 20 ratio Normal 7-27 [facility] Comment on above: Performed By: #### LINDA SOLIS, KIMBERON ####[id number] [place], [place] [address] Calcium [Mass/Vol] 10.3 mg/dL High 8.4-10.2 [facility] Comment on above: Performed By: #### LINDA SOLIS, JANIA ####[address] [place], [place] [address] Chloride [Moles/Vol] 104 mmol/L Normal 98-107 [facility] Comment on above: Performed By: #### LINDA SOLIS CAION ####[address] [place], [place] [address] CO2 [Moles/Vol] 31 mmol/L Normal 23-31 [facility] Comment on above: Performed By: #### LINDA SOLIS CAION ####[address] [place], [place] [address] Creatinine [Mass/Vol] 1.16 mg/dL High 0.55-1.02 [facility] Comment on above: Result Comment: Test ing performed on Siemens Dimension EXL analyzer using a modified kinetic Dora technique. Performed By: #### LINDA SOLIS CAION ####[address] [place], [place] [address] Electrolyte Balance 7.0 mEq/L Normal 4.0-15.0 [facility] Comment on above: Performed By: #### LINDA SOLIS, KIMBERON ####[address] [place], [place] [address] Glucose [Mass/Vol] 92 mg/dL Normal 83-110 [facility] Comment on above: Performed By: #### LINDA SOLIS, KIMBERON ####[address] [place], [place] [address] Potassium [Moles/Vol] 4.2 mmol/L Normal 3.5-5.1 [facility] Comment on above: Performed By: #### G , BMP, CAION ####[address] [place], [place] [address] Sodium [Moles/Vol] 142 mmol/L Normal 136-145 [facility] Comment on above: Performed By: #### G , BMP, CAION ####[address] [place], [place] [address] Urea nitrogen [Mass/Vol] 23 mg/dL High 7-18 [facility] Comment on above: Performed By: #### G , BMP, CAION ####[address] [place] [address] CAIONon 12-29-2023 Calcium Ionized 1.27 mmol/L Normal 1.12-1.32 [facility] Comment on above: Performed By: #### G , LINDA, CAION ####[address] [place] [address] LABORATORYOrdered By: SYSTEM SYSTEM on 12-29-2023 Calcium [...] above: Interpretive Data: T esting performed on [employer] Dimension EXL analyzer using a modified kinetic [...] 12/21/2023 4:21:17 PM Ordering Provider: LARRY Geronimo [facility] XR SPINE LUMBAR W/OBLIQUES 4 VIEWSon 12-21-2023 [...] Date: 12/21/2023 4:34:05 PM Ordering Provider: LARRY Geroinmo [facility] B12on 12-16-2023 Cobalamin (Vitamin B12) [Mass/Vol] 509 pg/mL Normal 211-911 [facility] Comment on above: Performed By: #### F ES, FERR ####[address] [address]#### B12, FOL ####[place] [id number] [place] [address] FOLon 12-16-2023 Folate >48.00 High 5.38-24.00 [facility] Comment on above: Performed By: #### F ES, FERR ####[address] [address]#### B12, FOL ####[address] [address] .Auto Diffon 12-15-2023 Basophil, Absolute 0.1 10 3/mcL Normal 0.0-0.2 [facility] Comment on above: Performed By: #### C MP, ADIFF, CBC, GFR, PBNP, ANEU #### [address] [address] Basophils/100 WBC (Bld) 1.1 % Normal 0.0-2.5 [facility] Comment on above: Performed By: #### C MP, ADIFF, CBC, GFR, PBNP, ANEU #### [address] [address] Eosinophil, Absolute 0.1 10 3/mcL Normal 0.0-0.7 [facility] Comment on above: Performed By: #### C MP, ADIFF, CBC, GFR, PBNP, ANEU #### [address] [address] Eosinophils/100 WBC (Bld) 1.4 % Normal 0.0-7.0 [facility] Comment on above: Performed By: #### C MP, ADIFF, CBC, GFR, PBNP, ANEU #### [address] [address] Lymphocyte, Absolute 1.7 10 3/mcL Normal 0.9-4.3 [facility] Comment on above: Performed By: #### C MP, ADIFF, CBC, GFR, PBNP, ANEU #### [address] [address] Lymphocytes/100 WBC (Bld) 20.9 % Normal 20.0-40.0 [facility] Comment on above: Performed By: #### C MP, ADIFF, CBC, GFR, PBNP, ANEU #### [address] [address] Monocyte, Absolute 0.5 10 3/mcL Normal 0.1-1.4 [facility] Comment on above: Performed By: #### C MP, ADIFF, CBC, GFR, PBNP, ANEU #### [address] [address] Monocytes/100 WBC (Bld) 6.0 % Normal 2.0-13.0 [facility] Comment on above: Performed By: #### C MP, ADIFF, CBC, GFR, PBNP, ANEU #### [address] [address] Neutrophils/100 WBC (Bld) 70.6 % Normal 50.0-75.0 [facility] Comment on above: Performed By: #### C MP, ADIFF, CBC, GFR, PBNP, ANEU #### [address] [address] .GFRon 12-15-2023 GFR 62 ml/min/1.73sqm Normal [facility] Comment on above: Result Comment: GFR Population [...] MP, ADIFF, CBC, GFR, PBNP, ANEU #### [address] [address] GFR Non- 52 ml/min/1.73sqm Normal [facility] Comment on above: Result Comment: GFR Population [...] MP, ADIFF, CBC, GFR, PBNP, ANEU #### [address] [address] .NEUABSon 12-15-2023 Neutrophil, Absolute 5.8 10 3/mcL Normal 2.3-8.1 [facility] Comment on above: Performed By: #### C MP, ADIFF, CBC, GFR, PBNP, ANEU #### [address] [address] CBCon 12-15-2023 Erythrocyte distribution width (RBC) [Ratio] 14.2 % Normal 11.5-15.5 [facility] Comment on above: Performed By: #### C MP, ADIFF, CBC, GFR, PBNP, ANEU #### [address] [address] Hematocrit (Bld) [Volume fraction] 34.6 % Normal 34.0-46.0 [facility] Comment on above: Performed By: #### C MP, ADIFF, CBC, GFR, PBNP, ANEU #### [place] [id number] Hgb 11.7 G/dL Low 12.0-16.0 [facility] Comment on above: Performed By: #### C MP, ADIFF, CBC, GFR, PBNP, ANEU #### [address] [address] MCH (RBC) [Entitic mass] 28.7 pg Normal 27.0-33.0 [facility] Comment on above: Performed By: #### C MP, ADIFF, CBC, GFR, PBNP, ANEU #### [address] [address] MCHC 33.9 G/dL Normal 32.0-36.0 [facility] Comment on above: Performed By: #### C MP, ADIFF, CBC, GFR, PBNP, ANEU #### [address] [address] MCV (RBC) [Entitic vol] 84.8 fL Normal 80.0-99.0 [facility] Comment on above: Performed By: #### C MP, ADIFF, CBC, GFR, PBNP, ANEU #### [address] [address] Platelet 363 10 3/mcL Normal 150-450 [facility] Comment on above: Performed By: #### C MP, ADIFF, CBC, GFR, PBNP, ANEU #### [address] [address] Platelet mean volume (Bld) [Entitic vol] 7.4 fL Normal 6.6-10.5 [facility] Comment on above: Performed By: #### C MP, ADIFF, CBC, GFR, PBNP, ANEU #### [address] [address] RBC 4.08 10 6/mcL Low 4.10-5.30 [facility] Comment on above: Performed By: #### C MP, ADIFF, CBC, GFR, PBNP, ANEU #### [address] [address] WBC 8.3 10 3/mcL Normal 4.5-10.8 [facility] Comment on above: Performed By: #### C MP, ADIFF, CBC, GFR, PBNP, ANEU #### [address] [address] CMPon 12-15-2023 Albumin Level 3.9 G/dL Normal 3.4-4.8 [facility] Comment on above: Performed By: #### C MP, ADIFF, CBC, GFR, PBNP, ANEU #### [place] [id number] Albumin/Globulin [Mass ratio] 1.4 {ratio} Normal 1.1-2.5 [facility] Comment on above: Performed By: #### C MP, ADIFF, CBC, GFR, PBNP, ANEU #### [place] [address] ALP [Catalytic activity/Vol] 72 U/L Normal 40-135 [facility] Comment on above: Performed By: #### C MP, ADIFF, CBC, GFR, PBNP, ANEU #### [place] [address] ALT [Catalytic activity/Vol] 26 U/L Normal 14-59 [facility] Comment on above: Performed By: #### C MP, ADIFF, CBC, GFR, PBNP, ANEU #### [place] [address] AST [Catalytic activity/Vol] 18 U/L Normal 10-40 [facility] Comment on above: Performed By: #### C MP, ADIFF, CBC, GFR, PBNP, ANEU #### [place] [id number] Bili Total 0.4 mg/dL Normal 0.2-1.0 [facility] Comment on above: Result Comment: Use of this assay is not recommended for patients undergoing treatment with eltrombopag due to the potential for falsely elevated results. Performed By: #### C MP, ADIFF, CBC, GFR, PBNP, ANEU #### [place] [address]757 BUN/Creatinine Ratio 20 ratio Normal 7-27 [facility] Comment on above: Performed By: #### C MP, ADIFF, CBC, GFR, PBNP, ANEU #### [place] [address] Calcium [Mass/Vol] 10.8 mg/dL High 8.4-10.2 [facility] Comment on above: Performed By: #### C MP, ADIFF, CBC, GFR, PBNP, ANEU #### [place] [address] Chloride [Moles/Vol] 104 mmol/L Normal 98-107 [facility] Comment on above: Performed By: #### C MP, ADIFF, CBC, GFR, PBNP, ANEU #### [place] [address] CO2 [Moles/Vol] 30 mmol/L Normal 23-31 [facility] Comment on above: Performed By: #### C MP, ADIFF, CBC, GFR, PBNP, ANEU #### [place] [address] Creatinine [Mass/Vol] 1.02 mg/dL Normal 0.55-1.02 [facility] Comment on above: Result Comment: Test ing performed on Siemens Dimension EXL analyzer using a modified kinetic Dora technique. Performed By: #### C MP, ADIFF, CBC, GFR, PBNP, ANEU #### [place] [address] Electrolyte Balance 7.0 mEq/L Normal 4.0-15.0 [facility] Comment on above: Performed By: #### C MP, ADIFF, CBC, GFR, PBNP, ANEU #### [place] [address] Globulin 2.8 G/dL Normal [facility] Comment on above: Performed By: #### C MP, ADIFF, CBC, GFR, PBNP, ANEU #### [place] [address] Glucose [Mass/Vol] 105 mg/dL Normal 83-110 [facility] Comment on above: Performed By: #### C MP, ADIFF, CBC, GFR, PBNP, ANEU #### [address] [address] Potassium [Moles/Vol] 4.2 mmol/L Normal 3.5-5.1 [facility] Comment on above: Performed By: #### C MP, ADIFF, CBC, GFR, PBNP, ANEU #### [address] [address] Sodium [Moles/Vol] 141 mmol/L Normal 136-145 [facility] Comment on above: Performed By: #### C MP, ADIFF, CBC, GFR, PBNP, ANEU #### [place] [address] Total Protein 6.7 G/dL Normal 6.4-8.2 [facility] Comment on above: Performed By: #### C MP, ADIFF, CBC, GFR, PBNP, ANEU #### [place] [address] Urea nitrogen [Mass/Vol] 20 mg/dL High 7-18 [facility] Comment on above: Performed By: #### C MP, ADIFF, CBC, GFR, PBNP, ANEU #### [address] [address] Lucretia 12-15-2023 Ferritin [Mass/Vol] 197.0 ng/mL Normal 8.0-252.0 [facility] Comment on above: Performed By: #### F ES, FERR ####[place] [address]#### B12, FOL ####[address] [address] FESon 12-15-2023 Iron [Mass/Vol] 44 ug/dL Low 50-170 [facility] Comment on above: Performed By: #### F ES, FERR ####[place] [address]#### B12, FOL ####[place] [address] Iron Sat 15 % Normal [facility] Comment on above: Performed By: #### F ES, FERR ####[facility] [place], [place] [address]#### B12, FOL ####[facility] [place] [address] TIBC 300 mcg/dL Normal 250-450 [facility] Comment on above: Performed By: #### F ES, FERR ####[address] [place], [place] [address]#### B12, FOL ####[facility] [place] [address] LABORATORYOrdered By: SYSTEM SYSTEM on 12-15-2023 Albumin [...] Culture Urine No growth at 48 hours. [facility] PBNPon 12-15-2023 Natriuretic peptide B (Bld) [Mass/Vol] 1968 pg/mL High 0-450 [facility] Comment on above: Result Comment: NT-p roBNP results of less than 300 pg/mL effectively rules out acute congestive heart failure with 99% negative predictive value. Performed By: #### C MP, ADIFF, CBC, GFR, PBNP, ANEU ####[facility] [place] [address] LABORATORYOrdered By: Domingo Masterson on 12-09-2023 Appearance [...] SS UAon 12-09-2023 Color (U) Yellow Normal [facility] Comment on above: Performed By: #### U A ####[place] [address] Glucose (U) [Mass/Vol] Negative Normal Negative [facility] Comment on above: Performed By: #### U A ####[place] [address] Ketones Ql (U) Negative Normal Negative [facility] Comment on above: Performed By: #### U A ####[place] [address] UA Appear Clear Normal Clear [facility] Comment on above: Performed By: #### U A ####[place] [address] UA Blood Negative Normal Negative [facility] Comment on above: Performed By: #### U A ####[facility] [place] [address] UA Leuk Est Negative Normal Negative [facility] Comment on above: Performed By: #### U A ####[place] [address] [place] [address] UA Nitrite Negative Normal Negative [facility] Comment on above: Performed By: #### U A ####[address], [place] [address] UA pH 7.5 Normal 5.0 - 8.0 [facility] Comment on above: Performed By: #### U A ####[place] [id number], [place] [address] UA Protein Negative Normal Negative [facility] Comment on above: Performed By: #### U A ####[place] [address] [place] [id number] UA Spec Grav 1.020 Normal 1.015-1.025 [facility] Comment on above: Performed By: #### U A ####[facility] [place] [address] UA Specimen Type Clean Catch Normal [facility] Comment on above: Performed By: #### U A ####[facility] [place] [address] UA Urobilinogen 0.2 E.U./dL Normal 0.2-1.0 [facility] Comment on above: Performed By: #### U A ####[facility] [place] [address] Urobilinogen (U) [Mass/Vol] Negative Normal Negative [facility] Comment on above: Performed By: #### U A ####[facility] [place], [place] [address] XR HIP RIGHT W/PELVIS 4 VIEW Son [...] 11/29/2023 11:51:51 AM Ordering Provider: SONNY STAHL [facility] .GFRon 07-08-2023 GFR 63 ml/min/1.73sqm Normal [facility] ([place] Comment on above: Result Comment: GFR Population [...] FR, A1C, ANEU, CBC, ADIFF, BMP #### [address] [address] GFR Non- 52 ml/min/1.73sqm Normal [facility] ([place]) Comment on above: Result Comment: GFR Population [...] FR, A1C, ANEU, CBC, ADIFF, BMP #### [address] [address] BMPon 07-08-2023 BUN/Creatinine Ratio 19 ratio Normal 7- [facility] ([place]) Comment on above: Performed By: #### G FR, A1C, ANEU, CBC, ADIFF, BMP #### [address] [address] Calcium [Mass/Vol] 9.6 mg/dL Normal 8.4-10.2 [facility] ([place]) Comment on above: Performed By: #### G FR, A1C, ANEU, CBC, ADIFF, BMP #### [address] [address] Chloride [Moles/Vol] 106 mmol/L Normal 98-107 [facility] ([place]) Comment on above: Performed By: #### G FR, A1C, ANEU, CBC, ADIFF, BMP #### [address] [address] CO2 [Moles/Vol] 29 mmol/L Normal 23-31 [facility] ([place]) Comment on above: Performed By: #### G FR, A1C, ANEU, CBC, ADIFF, BMP #### [address] [address] Creatinine [Mass/Vol] 1.02 mg/dL Normal 0.55-1.02 [facility] ([place]) Comment on above: Performed By: #### G FR, A1C, ANEU, CBC, ADIFF, BMP #### [address] [address] Electrolyte Balance 9.0 mEq/L Normal 4.0-15.0 [facility] ([place]) Comment on above: Performed By: #### G FR, A1C, ANEU, CBC, ADIFF, BMP #### [address] [address] Glucose [Mass/Vol] 118 mg/dL High 83-110 [facility] ([place] Comment on above: Performed By: #### G FR, A1C, ANEU, CBC, ADIFF, BMP #### [address] [address] Potassium [Moles/Vol] 3.7 mmol/L Normal 3.5-5.1 [facility] ([place] Comment on above: Performed By: #### G FR, A1C, ANEU, CBC, ADIFF, BMP #### [address] [address] Sodium [Moles/Vol] 144 mmol/L Normal 136-145 [facility] ([place] Comment on above: Performed By: #### G FR, A1C, ANEU, CBC, ADIFF, BMP #### [place] [id number] [place], [place] [address] Urea nitrogen [Mass/Vol] 19 mg/dL High 7-18 [facility] ([place]) Comment on above: Performed By: #### G FR, A1C, ANEU, CBC, ADIFF, BMP #### [place] [id number] [place], [place] [address] LABORATORYOrdered By: SYSTEM SYSTEM on 07-08-2023 Calcium [...] 04/14/2023 10:35:22 AM Ordering Provider: MAHAD Geronimo [facility] ([place]) METon 04-14-2023 Methylmalonic Acid 340 nmol/L Normal 0-378 [facility] ([place] Comment on above: Result Comment: This test was developed and its performance characteristics determined by [facility]. It has not been cleared or approved by the Food and Drug Administration. Performed At: [address] [id number] Hima Lieberman MD Ph:[phone] Performed By: #### G FR, A1C, ANEU, CBC, ADIFF, BMP #### [place] [address] B12on 04-07-2023 Cobalamin (Vitamin B12) [Mass/Vol] 600 pg/mL Normal 211-911 [facility] ([place]) Comment on above: Performed By: #### F OL, B12 #### [place] [address] #### FT4, [id number], TSH #### [place] [address] FOLon 04-07-2023 Folate >48.00 High 5.38-24.00 [facility] ([place]) Comment on above: Performed By: #### F OL, B12 #### [address] [address] #### FT4, [id number], TSH #### [place] [address] FT4on 04-07-2023 Free T4 [Mass/Vol] 0.99 ng/dL Normal 0.76-1.46 [facility]) Comment on above: Performed By: #### F OL, B12 #### [place] [address] #### FT4, [address], TSH #### [address] [address] LABORATORYOrdered By: SYSTEM SYSTEM on 04-07-2023 Cobalamin [...] 04-07-2023 TSH Qn 1.65 m[IU]/L Normal 0.36-3.74 [facility] ([place]) Comment on above: Performed By: #### F OL, B12 #### [place] [address] #### FT4, 104753, TSH #### [address] [address] .Auto Diffon 03-10-2023 Basophil, Absolute 0.1 10 3/mcL Normal 0.0-0.2 [facility] ([place]) Comment on above: Performed By: #### G FR, A1C, ANEU, CBC, ADIFF, BMP #### [address] [address] Basophils/100 WBC (Bld) 1.2 % Normal 0.0-2.5 [facility] ([place]) Comment on above: Performed By: #### G FR, A1C, ANEU, CBC, ADIFF, BMP #### [address] [address] Eosinophil, Absolute 0.1 10 3/mcL Normal 0.0-0.4 [facility] ([place]) Comment on above: Performed By: #### G FR, A1C, ANEU, CBC, ADIFF, BMP #### [address] [address] Eosinophils/100 WBC (Bld) 1.6 % Normal 0.0-7.0 [facility] ([place] Comment on above: Performed By: #### G FR, A1C, ANEU, CBC, ADIFF, BMP #### [address] [address] Lymphocyte, Absolute 1.9 10 3/mcL Normal 0.8-3.9 [facility] ([place]) Comment on above: Performed By: #### G FR, A1C, ANEU, CBC, ADIFF, BMP #### [address] [address] Lymphocytes/100 WBC (Bld) 23.7 % Normal 10.0-50.0 [facility] ([place] Comment on above: Performed By: #### G FR, A1C, ANEU, CBC, ADIFF, BMP #### [address] [address] Monocyte, Absolute 0.6 10 3/mcL Normal 0.2-1.0 [facility] ([place] Comment on above: Performed By: #### G FR, A1C, ANEU, CBC, ADIFF, BMP #### [address] [address] Monocytes/100 WBC (Bld) 7.8 % Normal 1.7-13.0 [facility] ([place]) Comment on above: Performed By: #### G FR, A1C, ANEU, CBC, ADIFF, BMP #### [address] [address] Neutrophils/100 WBC (Bld) 65.7 % Normal 37.0-80.0 [facility] ([place] Comment on above: Performed By: #### G FR, A1C, ANEU, CBC, ADIFF, BMP #### [address] [address] .GFRon 03-10-2023 GFR 63 ml/min/1.73sqm Normal [facility] ([place] Comment on above: Result Comment: GFR Population [...] FR, A1C, ANEU, CBC, ADIFF, BMP #### [address] [address] GFR Non- 52 ml/min/1.73sqm Normal [facility] ([place] Comment on above: Result Comment: GFR Population [...] FR, A1C, ANEU, CBC, ADIFF, BMP #### [address] [address] .NEUABSon 03-10-2023 Neutrophil, Absolute 5.2 10 3/mcL Normal 2.9-6.2 [facility] ([place]) Comment on above: Performed By: #### G FR, A1C, ANEU, CBC, ADIFF, BMP #### [address] [address] A1Con 03-10-2023 HbA1c (Bld) [Mass fraction] 5.6 % Normal 4.3-6.4 [facility] ([place] Comment on above: Performed By: #### G FR, A1C, ANEU, CBC, ADIFF, BMP #### [address] [address] CBCon 03-10-2023 Erythrocyte distribution width (RBC) [Ratio] 14.7 % High 11.5-14.5 [facility] ([place] Comment on above: Performed By: #### G FR, A1C, ANEU, CBC, ADIFF, BMP #### [place] [address] Hematocrit (Bld) [Volume fraction] 35.6 % Low 37.0-47.0 [facility] ([place] Comment on above: Performed By: #### G FR, A1C, ANEU, CBC, ADIFF, BMP #### [place] [id number] Hgb 12.1 G/dL Normal 12.0-16.0 [facility] ([place] Comment on above: Performed By: #### G FR, A1C, ANEU, CBC, ADIFF, BMP #### [address] [address] MCH (RBC) [Entitic mass] 27.8 pg Normal 27.0-31.2 [facility] ([place] Comment on above: Performed By: #### G FR, A1C, ANEU, CBC, ADIFF, BMP #### [address] [address] MCHC 34.1 G/dL Normal 33.0-37.0 [facility] ([place] Comment on above: Performed By: #### G FR, A1C, ANEU, CBC, ADIFF, BMP #### [address] [address] MCV (RBC) [Entitic vol] 81.7 fL Normal 80.0-94.0 [facility] ([place]) Comment on above: Performed By: #### G FR, A1C, ANEU, CBC, ADIFF, BMP #### [address] [address] Platelet 300 10 3/mcL Normal 130-400 [facility] ([place] Comment on above: Performed By: #### G FR, A1C, ANEU, CBC, ADIFF, BMP #### [address] [address] Platelet mean volume (Bld) [Entitic vol] 8.0 fL Normal 7.4-10.4 [facility] ([place] Comment on above: Performed By: #### G FR, A1C, ANEU, CBC, ADIFF, BMP #### [address] [address] RBC 4.35 10 6/mcL Normal 4.20-5.40 [facility] ([place]) Comment on above: Performed By: #### G FR, A1C, ANEU, CBC, ADIFF, BMP #### [address] [address] WBC 8.0 10 3/mcL Normal 4.6-10.8 [facility] ([place]) Comment on above: Performed By: #### G FR, A1C, ANEU, CBC, ADIFF, BMP #### [address] [address] CMPon 03-10-2023 Chloride [Moles/Vol] 102 mmol/L Normal 98-107 [facility] ([place]) Comment on above: Performed By: #### G FR, A1C, ANEU, CBC, ADIFF, BMP #### [address] [address] Electrolyte Balance 10.0 mEq/L Normal 4.0-15.0 [facility] ([place]) Comment on above: Performed By: #### G FR, A1C, ANEU, CBC, ADIFF, BMP #### [address] [address] Potassium [Moles/Vol] 4.3 mmol/L Normal 3.5-5.1 [facility] ([place]) Comment on above: Performed By: #### G FR, A1C, ANEU, CBC, ADIFF, BMP #### [address] [address] Sodium [Moles/Vol] 141 mmol/L Normal 136-145 [facility] ([place]) Comment on above: Performed By: #### G FR, A1C, ANEU, CBC, ADIFF, BMP #### [address] [address] Albumin Level 3.7 G/dL Normal 3.4-4.8 [facility] ([place]) Comment on above: Performed By: #### G FR, A1C, ANEU, CBC, ADIFF, BMP #### [address] [address] Albumin/Globulin [Mass ratio] 1.1 {ratio} Normal 1.1-2.5 [facility] ([place] Comment on above: Performed By: #### G FR, A1C, ANEU, CBC, ADIFF, BMP #### [address] [address] ALP [Catalytic activity/Vol] 79 U/L Normal 40-135 [facility] ([place] Comment on above: Performed By: #### G FR, A1C, ANEU, CBC, ADIFF, BMP #### [address] [address] ALT [Catalytic activity/Vol] 24 U/L Normal 14-59 [facility] ([place] Comment on above: Performed By: #### G FR, A1C, ANEU, CBC, ADIFF, BMP #### [address] [address] AST [Catalytic activity/Vol] 12 U/L Normal 10-40 [facility] ([place] Comment on above: Performed By: #### G FR, A1C, ANEU, CBC, ADIFF, BMP #### [address] [address] Bili Total 0.3 mg/dL Normal 0.2-1.0 [facility] ([place] Comment on above: Result Comment: Use of this assay is not recommended for patients undergoing treatment with eltrombopag due to the potential for falsely elevated results. Performed By: #### G FR, A1C, ANEU, CBC, ADIFF, BMP #### [address] [address] BUN/Creatinine Ratio 25 ratio Normal 7-27 [facility] ([place] Comment on above: Performed By: #### G FR, A1C, ANEU, CBC, ADIFF, BMP #### [address] [address] Calcium [Mass/Vol] 10.1 mg/dL Normal 8.4-10.2 [facility] ([place] Comment on above: Performed By: #### G FR, A1C, ANEU, CBC, ADIFF, BMP #### [address] [address] CO2 [Moles/Vol] 29 mmol/L Normal 23-31 [facility] ([place] Comment on above: Performed By: #### G FR, A1C, ANEU, CBC, ADIFF, BMP #### [address] [address] Creatinine [Mass/Vol] 1.02 mg/dL Normal 0.55-1.02 [facility] ([place] Comment on above: Performed By: #### G FR, A1C, ANEU, CBC, ADIFF, BMP #### [address] [address] Globulin 3.3 G/dL Normal [facility] ([place] Comment on above: Performed By: #### G FR, A1C, ANEU, CBC, ADIFF, BMP #### [address] [address] Glucose [Mass/Vol] 118 mg/dL High 83-110 [facility] ([place] Comment on above: Performed By: #### G FR, A1C, ANEU, CBC, ADIFF, BMP #### [address] [address] Total Protein 7.0 G/dL Normal 6.4-8.2 [facility] ([place] Comment on above: Performed By: #### G FR, A1C, ANEU, CBC, ADIFF, BMP #### [address] [address] Urea nitrogen [Mass/Vol] 26 mg/dL High 7-18 [facility] ([place] Comment on above: Performed By: #### G FR, A1C, ANEU, CBC, ADIFF, BMP #### [address] [address] LIPIDon 03-10-2023 Cholesterol [Mass/Vol] 214 mg/dL High 0-200 [facility] ([place] Comment on above: Result Comment: Chol esterol Reference Interval: Less than 200 Desirable 200-239 Borderline high risk 240 and above High risk Performed By: #### G FR, A1C, ANEU, CBC, ADIFF, BMP #### [address] [address] Cholesterol in HDL [Mass/Vol] 62 mg/dL High 40-60 [facility] ([place] Comment on above: Performed By: #### G FR, A1C, ANEU, CBC, ADIFF, BMP #### [address] [address] Cholesterol in LDL [Mass/Vol] 111 mg/dL Normal 0-130 [facility] ([place] Comment on above: Performed By: #### G FR, A1C, ANEU, CBC, ADIFF, BMP #### [address] [address] Triglyceride [Mass/Vol] 205 mg/dL High 0-150 [facility] ([place]) Comment on above: Result Comment: Trig lyceride Reference Interval: Less than 150 Normal 150-199 Borderline high risk 200-499 High risk 500 or higher Very high risk Performed By: #### G FR, A1C, ANEU, CBC, ADIFF, BMP #### [address] [address] PHOSon 03-10-2023 Phosphate [Mass/Vol] 3.2 mg/dL Normal 2.3-4.1 [facility] ([place] Comment on above: Performed By: #### G FR, A1C, ANEU, CBC, ADIFF, BMP #### [address] [address] PTHon 03-10-2023 PTH, Intact 78.2 pg/mL Normal 18.5-88.0 [facility] ([place] Comment on above: Performed By: #### G FR, A1C, ANEU, CBC, ADIFF, BMP #### [address] [address] [facility] Vit. D 25-Hydroxy 32.1 ng/mL Normal [facility] ([place] Comment on above: Result Comment: Inte rpretive Values Based on Total 25(OH) Vitamin D: Deficient <20 ng/mL Insufficient 20 - <30 ng/mL Sufficient 30-100 ng/mL Performed By: #### G FR, A1C, ANEU, CBC, ADIFF, BMP #### [id number] [place], [place] [address] BD BONE DENSITY DEXA AXIAL S [facility] 12-14-2022 BD BONE DENSITY DEXA AXIAL SKELETON [...] 12/14/2022 9:37:25 AM Ordering Provider: LARRY Geronimo [facility] ([place] .Auto Diffon 09-16-2022 Basophil, Absolute 0.1 10 3/mcL Normal 0.0-0.2 [facility] ([place] Comment on above: Performed By: #### G FR, A1C, ANEU, CBC, ADIFF, BMP #### [address] [address] Basophils/100 WBC (Bld) 0.8 % Normal 0.0-2.5 [facility] ([place] Comment on above: Performed By: #### G FR, A1C, ANEU, CBC, ADIFF, BMP #### [address] [address] Eosinophil, Absolute 0.2 10 3/mcL Normal 0.0-0.4 [facility] ([place] Comment on above: Performed By: #### G FR, A1C, ANEU, CBC, ADIFF, BMP #### [address] [address] Eosinophils/100 WBC (Bld) 2.1 % Normal 0.0-7.0 [facility] ([place] Comment on above: Performed By: #### G FR, A1C, ANEU, CBC, ADIFF, BMP #### [address] [address] Lymphocyte, Absolute 2.0 10 3/mcL Normal 0.8-3.9 [facility] ([place] Comment on above: Performed By: #### G FR, A1C, ANEU, CBC, ADIFF, BMP #### [address] [address] Lymphocytes/100 WBC (Bld) 22.9 % Normal 10.0-50.0 [facility] ([place] Comment on above: Performed By: #### G FR, A1C, ANEU, CBC, ADIFF, BMP #### [address] [address] Monocyte, Absolute 0.5 10 3/mcL Normal 0.2-1.0 [facility] ([place] Comment on above: Performed By: #### G FR, A1C, ANEU, CBC, ADIFF, BMP #### [address] [address] Monocytes/100 WBC (Bld) 6.4 % Normal 1.7-13.0 [facility] ([place] Comment on above: Performed By: #### G FR, A1C, ANEU, CBC, ADIFF, BMP #### [address] [address] Neutrophils/100 WBC (Bld) 67.8 % Normal 37.0-80.0 [facility] ([place] Comment on above: Performed By: #### G FR, A1C, ANEU, CBC, ADIFF, BMP #### [address] [address] .GFRon 09-16-2022 GFR Non- 48 ml/min/1.73sqm Normal [facility] ([place] Comment on above: Result Comment: GFR Population [...] FR, A1C, ANEU, CBC, ADIFF, BMP #### [address] [address] GFR 59 ml/min/1.73sqm Normal [facility] ([place] Comment on above: Result Comment: GFR Population [...] FR, A1C, ANEU, CBC, ADIFF, BMP #### [address] [address] .NEUABSon 09-16-2022 Neutrophil, Absolute 5.8 10 3/mcL Normal 2.9-6.2 [facility] ([place] Comment on above: Performed By: #### G FR, A1C, ANEU, CBC, ADIFF, BMP #### [address] [address] A1Con 09-16-2022 HbA1c (Bld) [Mass fraction] 5.7 % Normal 4.3-6.4 [facility] ([place] Comment on above: Performed By: #### G FR, A1C, ANEU, CBC, ADIFF, BMP #### [address] [address] BMPon 09-16-2022 BUN/Creatinine Ratio 27 ratio Normal 7-27 [facility] ([place] Comment on above: Performed By: #### G FR, A1C, ANEU, CBC, ADIFF, BMP #### [address] [address] Calcium [Mass/Vol] 9.8 mg/dL Normal 8.4-10.2 [facility] ([place] Comment on above: Performed By: #### G FR, A1C, ANEU, CBC, ADIFF, BMP #### [address] [address] Chloride [Moles/Vol] 106 mmol/L Normal 98-107 [facility] ([place] Comment on above: Performed By: #### G FR, A1C, ANEU, CBC, ADIFF, BMP #### [address] [address] CO2 [Moles/Vol] 29 mmol/L Normal 23-31 [facility] ([place] Comment on above: Performed By: #### G FR, A1C, ANEU, CBC, ADIFF, BMP #### [address] [address] Creatinine [Mass/Vol] 1.08 mg/dL High 0.55-1.02 [facility] ([place] Comment on above: Performed By: #### G FR, A1C, ANEU, CBC, ADIFF, BMP #### [address] [address] Electrolyte Balance 8.0 mEq/L Normal 4.0-15.0 [facility] ([place] Comment on above: Performed By: #### G FR, A1C, ANEU, CBC, ADIFF, BMP #### [address] [address] Glucose [Mass/Vol] 125 mg/dL High 83-110 [facility] ([place] Comment on above: Performed By: #### G FR, A1C, ANEU, CBC, ADIFF, BMP #### [address] [address] Potassium [Moles/Vol] 4.5 mmol/L Normal 3.5-5.1 [facility] ([place] Comment on above: Performed By: #### G FR, A1C, ANEU, CBC, ADIFF, BMP #### [address] [address] Sodium [Moles/Vol] 143 mmol/L Normal 136-145 [facility] ([place] Comment on above: Performed By: #### G FR, A1C, ANEU, CBC, ADIFF, BMP #### [address] [address] Urea nitrogen [Mass/Vol] 29 mg/dL High 7-18 [facility] ([place] Comment on above: Performed By: #### G FR, A1C, ANEU, CBC, ADIFF, BMP #### [address] [address] CBCon 09-16-2022 Erythrocyte distribution width (RBC) [Ratio] 14.6 % High 11.5-14.5 [facility] ([place] Comment on above: Performed By: #### G FR, A1C, ANEU, CBC, ADIFF, BMP #### [address] [address] Hematocrit (Bld) [Volume fraction] 33.9 % Low 37.0-47.0 [facility] ([place] Comment on above: Performed By: #### G FR, A1C, ANEU, CBC, ADIFF, BMP #### [address] [address] Hgb 11.2 G/dL Low 12.0-16.0 [facility] ([place] Comment on above: Performed By: #### G FR, A1C, ANEU, CBC, ADIFF, BMP #### [address] [address] MCH (RBC) [Entitic mass] 27.0 pg Normal 27.0-31.2 [facility] ([place] Comment on above: Performed By: #### G FR, A1C, ANEU, CBC, ADIFF, BMP #### [address] [address] MCHC 33.1 G/dL Normal 33.0-37.0 [facility] ([place] Comment on above: Performed By: #### G FR, A1C, ANEU, CBC, ADIFF, BMP #### [address] [address] MCV (RBC) [Entitic vol] 81.6 fL Normal 80.0-94.0 [facility] ([place] Comment on above: Performed By: #### G FR, A1C, ANEU, CBC, ADIFF, BMP #### [address] [address] Platelet 275 10 3/mcL Normal 130-400 [facility] ([place] Comment on above: Performed By: #### G FR, A1C, ANEU, CBC, ADIFF, BMP #### [address] [address] Platelet mean volume (Bld) [Entitic vol] 8.2 fL Normal 7.4-10.4 [facility] ([place] Comment on above: Performed By: #### G FR, A1C, ANEU, CBC, ADIFF, BMP #### [facility] [address] [place], [place] [address] RBC 4.15 10 6/mcL Low 4.20-5.40 [facility] ([place] Comment on above: Performed By: #### G FR, A1C, ANEU, CBC, ADIFF, BMP #### [facility] [address] [place], [place] [address] WBC 8.5 10 3/mcL Normal 4.6-10.8 [facility] ([place] Comment on above: Performed By: #### G FR, A1C, ANEU, CBC, ADIFF, BMP #### [facility] [address] [place], [place] [address] LABORATORYOrdered By: SYSTEM SYSTEM on 06-19-2022 Basophils (Bld) [#/Vol] 0.1 103/mcL Invalid Interpretation Code 0.0 - 0.3 10^3/mcL Workflow SS Basophils/100 WBC (Bld) 0.9 % Invalid Interpretation Code 0.0 - 2.5 % Workflow SS Calcium [Mass/Vol] 10.0 mg/dL Invalid [...] Invalid Interpretation Code 82 - 115 mg/dL AH ADM SS Hematocrit (Bld) [Volume fraction] 33.6 % Invalid Interpretation Code 34.0 - 46.0 % AH Workflow SS Hemoglobin (Bld) [Mass/Vol] 11.2 G/dL Invalid Interpretation Code 12.0 - 16.0 G/dL AH Workflow SS Lymphocytes (Bld) [#/Vol] 1.6 103/mcL Invalid Interpretation Code 0.9 - 4.3 10^3/mcL AH Workflow SS Lymphocytes/100 WBC (Bld) 24.2 % Invalid Interpretation Code 20.0 - 40.0 % AH Workflow SS MCH (RBC) [Entitic mass] 27.5 [...] SS CNPNon 06-03-2022 CNPN Telephone (GENSWS) SHACT ([id number]) 1940 F Date Time Provider Department 06/03/22 PAULA ALANIZ During your visit today, we recorded the following information about you: Brenton Jennings RN 06/03/2022 11:29 AM Signed Received a request from [facility] for all of Ct's left breast cancer treatment medical records. Faxed the request to medical records on [facility], fax confirmation sheet received. Brenton Jennings [...] Encounter Status:Closed by BRENTON JENNINGS on 06/03/22 [facility] LABORATORYOrdered By: SYSTEM SYSTEM on 04-14-2022 Albumin [...] CNOV Office Visit (TONYA ) CT DALTON ([id number]) 1940 F Date Time Provider Department 04/06/22 [...] needle core breast biopsies on 03/23/2022 at [facility]. Findings of fat necrosis, inflammation and [...] once daily. (more content not included)... Normal [facility] LABORATORYOrdered By: SYSTEM SYSTEM on 03-09-2022 [...] (12/04/21 3:30 PM) Invalid Interpretation Code 1.006-1.029 Auto Urine SS UA Specimen Type Clean [...] Invalid Interpretation Code 4.10 - 5.30 10^6/mcL Workflow SS Sodium [Moles/Vol] 138 mmol/L Invalid [...] 12-04 Culture Urine No growth to date [facility] Microscopic examination of blood, culture Culture has been received in lab and is no growth to date. Routine cultures are held for 5 days. [facility] LABORATORYOrdered By: Rick Webber on 12-03-2021 [...] 1.006-1.029 AM Telcor Subsection Urobilinogen Qn (U) [id number] {Sara'U}/dL Invalid Interpretation Code 0.2-1.0E.U. /dL AM [...] Telcor Subsection Comment on above: Result Comment: [facility] [place] [facility] [place], [place] [address] Perf Loc - POCT Tested at AM Invalid Interpretation Code AM Telcor Subsection Comment on above: Result Comment: [facility] [place] [facility] [place], [place] [address] Perf Loc - POCT Tested at AM Invalid Interpretation Code AM Telcor Subsection Comment on above: Result Comment: [facility] [place] [facility] [place], [place] [address] MRI BREAST WO/W IVCON BILon 01-22-2019 MRI BREAST WO/W IVCON DUNCAN * * *Final Report* * * DATE OF EXAM: Mar 01 2018 11:54AM [facility] 0773 - MRI BREAST WO/W IVCON DUNCAN / PROCEDURE REASON: N64.4-Mastodynia * * * * Physician Interpretation * * * * #[id number] - MRI BREAST WO/W IVCON DUNCAN BREAST MRI OF BOTH BREASTS: 03/01/2018 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 Short interval follow up of the lumpectomy site recommended per the prior MRI dated 05/18/2017. RESULT: Comparison is made to exam dated: 05/18/2017 breast MRI - [facility]. Interpretation of this MRI was correlated [...] Follow-up with ACR/NCCN guidelines. Td carlson/rafael:03/01/2018 14:15:08 Stores Clerk(s): Cally Pierson RT(N)(MR), [facility] MRI BI-RADS: 2 Benign finding Multiple [...] Health, Family Medicine, and Medical/Surgical Oncology, the [facility] has carefully reviewed the data and reached [...] their providers when to stop screening mammograms. Career Technical Education Instructor: Rafael Transcribe Date/Time: Mar 01 2018 11:37A Dictated by : TD SANDERS MD This examination was interpreted and the report reviewed and electronically signed by: TD SANDERS MD on Mar 01 2018 2:15PM EST [id number] Normal [facility] NURSING PROGon 03-01-2018 Protein mass conc HNO ID: [id number] Author: Carla Love (Elizabeth) Kristopher Service: Radiology Author Type: Registered Nurse [...] Summers RN March 01, 2018 10:49 AM [facility] Clinical Summary: HMSPatient IDon 01-17-2018 OOP Invalid Interpretation Code [facility] Work Phone: Office Visit: Follow-up by sasha servin, Rm: PT2on 01-17-2018 NEGATED: Highlighted rowMRI (magnetic resonance imaging) history of the lumbar spine on 10/20/2013 at [place] Invalid Interpretation Code [facility] Work Phone: NEGATED: Highlighted rowProtein mass conc Done Invalid Interpretation Code [facility] Work Phone: MRI BREAST WO/W IVCON BILon 05-18-2017 MRI BREAST WO/W IVCON DUNCAN * * *Final Report* * * DATE OF EXAM: May 18 2017 2:32PM [facility] 0773 - MRI BREAST WO/W IVCON DUNCAN / PROCEDURE REASON: Z13.89-Encounter for screening for other disorder * * * * Physician Interpretation * * * * #[id number] - MRI BREAST WO/W IVCON DUNCAN BREAST [...] staff physician. gaurav Estrada M.D., M.D./rafael:05/18/2017 15:28:32 Stores Clerk: Cally REESE)(Jeanine), [facility] MRI BI-RADS: 3 Probably benign finding - short term interval follow-up recommended Career Technical Education Instructor: Rafael Transcribe Date/Time: May 18 2017 2:15P Dictated by : MALLIKA PAYNE MD This examination was interpreted and the report reviewed and electronically signed by: CRICKET AMBRIZ MD on May 18 2017 3:28PM EST [id number] [facility] NURSING PROGon 05-18-2017 Protein mass conc HNO ID: [id number] Author: Ema (Rn) ELIZABETH Bai Service: PICC Team Author Type: Registered [...] 2017 TIME: 1:27 PM PAGER/CONTACT #: [phone] [facility] Vital Signs Date Time Vital Sign Value Performing Clinician Facility 08-26-2024 12:46-0400 Body height 167.[address] Warner Leos MD Work Phone: [facility] 07-24-2024 03:24-0400 Diastolic blood pressure 69 mm[Hg] Dr. Warner Leos MD Work Phone: [facility] 07-24-2024 03:24-0400 Heart rate 52 /min Dr. Warner Leos MD Work Phone: [facility] 07-24-2024 03:24-0400 SaO2% (BldA) [Mass fraction] 100 % Dr. Warner Leos MD Work Phone: [facility] 07-24-2024 03:24-0400 Systolic blood pressure 164 mm[Hg] Dr. Warner Leos MD Work Phone: [facility] 07-24-2024 01:24-0400 Body height 167.[address] Warner Leos MD Work Phone: [facility] 07-24-2024 01:24-0400 Body mass index (BMI) [Ratio] 28 kg/m2 Dr. Warner Leos MD Work Phone: [facility] 07-24-2024 01:24-0400 Body temperature 98 [degF] Dr. Warner Leos MD Work Phone: [facility] 07-24-2024 01:24-0400 Body weight 78.[address] Warner Leos MD Work Phone: [facility] 07-24-2024 01:24-0400 Respiratory rate 16 /min Dr. Warner Leos MD Work Phone: [facility] 02-10-2024 15:30-0500 Body temperature 97.52 [degF] ELDA OBREGONRUFF [employer] 02-10-2024 15:30-0500 Diastolic Blood Pressure Non-Invasive 72 mm[Hg] ELDALILIANA OBREGONCARIN [employer] [facility] 02-10-2024 15:30-0500 Heart rate 84 /min LEDA BUCKNERFF BRIDAL CONS[employer]ANT[employer] [facility] 02-10-2024 15:30-0500 Reason For Taking VItal Signs ELDA OBREGONRUFF BRIDAL CONS[employer]ANT[employer] [facility] 02-10-2024 15:30-0500 Respiratory rate 16 /min ELDA OBREGONRUFF BRIDAL CONSULTANT[employer] [facility] 02-10-2024 15:30-0500 Systolic Blood Pressure Non-Invasive 146 mm[Hg] ELDA BUCKNERFF BRIDAL CONS[employer] [facility] 02-10-2024 06:37-0500 Body temperature 97.34 [degF] ELDA OBREGONRUFF BRIDAL CONSULTANT[employer] [facility] 02-10-2024 06:37-0500 Diastolic Blood Pressure Non-Invasive 82 mm[Hg] ELDA BUCKNERFF BRIDAL CONSULT[employer] [facility] 02-10-2024 06:37-0500 Heart rate 80 /min ELDA CARIN BRIDAL CONS[employer] [facility] 02-10-2024 06:37-0500 Reason For Taking VItal Signs ELDA DEL ROSARIO BRIDAL CONSULTANT[employer] [facility] 02-10-2024 06:37-0500 Respiratory rate 14 /min ELDA DEL ROSARIO BRIDAL CONS[employer] [facility] 02-10-2024 06:37-0500 Systolic Blood Pressure Non-Invasive 148 mm[Hg] ELDA DEL ROSARIO BRIDAL CONS[employer] [facility] 02-10-2024 03:22-0500 Body temperature 97.52 [degF] ELDA DEL ROSARIO BRIDAL CONS[employer] [facility] 02-10-2024 03:22-0500 Diastolic Blood Pressure Non-Invasive 81 mm[Hg] ELDA DEL ROSARIO BRIDAL CONS[employer] [facility] 02-10-2024 03:22-0500 Heart rate 81 /min ELDA DEL ROSARIO BRIDAL CONS[employer]ANT[employer] [facility] 02-10-2024 03:22-0500 Reason For Taking VItal Signs ELDA DEL ROSARIO BRIDAL CONS[employer]ANT[employer] [facility] 02-10-2024 03:22-0500 Respiratory rate 14 /min ELDA DEL ROSARIO BRIDAL CONS[employer] [facility] 02-10-2024 03:22-0500 Systolic Blood Pressure Non-Invasive 156 mm[Hg] ELDA DEL ROSARIO BRIDAL CONS[employer] [facility] 02-09-2024 22:01-0500 Heart rate 74 /min ELDA DEL ROSARIO BRIDAL CONSULTANT[employer] [facility] 02-09-2024 21:59-0500 Body height 152 cm ELDA DEL ROSARIO BRIDAL CONSULTANT[employer] [facility] 02-09-2024 21:59-0500 Body weight 67 kg ELDA DEL ROSARIO BRIDAL CONSULTANT[employer] [facility] 02-09-2024 21:59-0500 Body weight 29 kg/m2 ELDA DEL ROSARIO BRIDAL CONSULTANT[employer] [facility] 02-09-2024 21:07-0500 Heart rate 78 /min ELDA DEL ROSARIO BRIDAL CONSULTANT[employer] [facility] 02-09-2024 21:07-0500 Mean blood pressure 90 mm[Hg] ELDA DEL ROSARIO BRIDAL CONSULTANT[employer] [facility] 02-09-2024 20:38-0500 Mean blood pressure 85 mm[Hg] ELDA DEL ROSARIO BRIDAL CONS[employer]ANT[employer] [facility] 02-09-2024 19:39-0500 Heart rate 83 /min ELDA DEL ROSARIO BRIDAL CONSULTANT[employer] [facility] 01-21-2024 10:04-0500 Body height 160 cm INES DENNIS MD [facility] 01-21-2024 10:04-0500 Body temperature 97.52 [degF] INES DENNIS MD [facility] 01-21-2024 10:04-0500 Body weight 68.2 kg INES DENNIS MD [facility] 01-21-2024 10:04-0500 Diastolic Blood Pressure Non-Invasive 81 mm[Hg] INES DENNIS MD [facility] 01-21-2024 10:04-0500 Heart rate 85 /min INES DENNIS MD [facility] 01-21-2024 10:04-0500 Respiratory rate 18 /min INES DENNIS MD [facility] 01-21-2024 10:04-0500 Systolic Blood Pressure Non-Invasive 164 mm[Hg] INES DENNIS MD [facility] 12-09-2023 08:47-0400 Blood Pressure Location INES DENNIS MD [facility] 12-09-2023 08:47-0400 Blood Pressure Method INES DENNIS MD [facility] 12-09-2023 08:47-0400 Body temperature 98.24 [degF] INES DENNIS MD [facility] 12-09-2023 08:47-0400 Diastolic Blood Pressure Non-Invasive 91 mm[Hg] INES DENNIS MD [facility] 12-09-2023 08:47-0400 Heart rate 90 /min INES DENNIS MD [facility] 12-09-2023 08:47-0400 Respiratory rate 18 /min INES DENNIS MD [facility] 12-09-2023 08:47-0400 Systolic Blood Pressure Non-Invasive 161 mm[Hg] INES DENNIS MD [facility] 11-29-2023 12:26-0400 Diastolic Blood Pressure Non-Invasive 76 mm[Hg] SONNY STAHL DO [facility] 11-29-2023 12:26-0400 Heart rate 76 /min SONNY STAHL DO [facility] 11-29-2023 12:26-0400 Respiratory rate 18 /min SONNY STAHL DO [facility] 11-29-2023 12:26-0400 Systolic Blood Pressure Non-Invasive 164 mm[Hg] SONNY STAHL DO [facility] 11-29-2023 08:58-0400 Blood Pressure Cuff Size SONNY STAHL DO [facility] 11-29-2023 08:58-0400 Blood Pressure Location SONNY STAHL DO [facility] 11-29-2023 08:58-0400 Blood Pressure Method SONNY STAHL DO [facility] 11-29-2023 08:58-0400 Body height 155 cm SONNY STAHL DO [facility] 11-29-2023 08:58-0400 Body temperature 97.34 [degF] OSNNY STAHL DO [facility] 11-29-2023 08:58-0400 Diastolic Blood Pressure Non-Invasive 83 mm[Hg] SONNY STAHL DO [facility] 11-29-2023 08:58-0400 Heart rate 84 /min SONNY STAHL DO [facility] 11-29-2023 08:58-0400 Respiratory rate 18 /min SONNY STAHL DO [facility] 11-29-2023 08:58-0400 Systolic Blood Pressure Non-Invasive 172 mm[Hg] SONNY STAHL DO [facility] 06-19-2022 12:01-04[address] Blood Pressure Cuff Size DR ANISA GOMEZ MD [facility] 06-19-2022 12:01-[address] ANISA GOMEZ MD [facility] 06-19-2022 12:01-[address] ANISA GOMEZ MD [address] [place] [address] 06-19-2022 12:01-0400 Body height [address] ANISA GOMEZ MD [address] [place] [address] 06-19-2022 12:01-0400 Body temperature 97.7 [degF] DR ANISA GOMEZ MD [address] 06-19-2022 12:01-0400 Body weight 76.[address] ANISA GOMEZ MD [facility] 06-19-2022 12:01-0400 Body weight 31.88 kg/m2 DR ANISA GOMEZ MD [facility] 06-19-2022 12:01-0400 Diastolic Blood Pressure Non-Invasive [address] ANISA GOMEZ MD [facility] 06-19-2022 12:01-0400 Heart rate 86 /min DR ANISA GOMEZ MD [facility] 06-19-2022 12:01-0400 Systolic Blood Pressure Non-Invasive [address] ANISA GOMEZ MD [facility] 04-06-2022 09:47-0500 Body height 157.5 cm Paula Alaniz MD Work Phone: [facility] 04-06-2022 09:47-0500 Body temperature 97.81 [degF] Paula Alaniz MD Work Phone: [facility] 04-06-2022 09:47-0500 Body weight 73.94 kg Paula Alaniz MD Work Phone: [facility] 04-06-2022 09:47-0500 Diastolic blood pressure 70 mm[Hg] Paula Alaniz MD Work Phone: [facility] 04-06-2022 09:47-0500 Heart rate 109 /min Paula Alaniz MD Work Phone: [facility] 04-06-2022 09:47-0500 SaO2% (BldA) [Mass fraction] 99 % Paula Alaniz MD Work Phone: [facility] 04-06-2022 09:47-0500 Systolic blood pressure 148 mm[Hg] Paula Alaniz MD Work Phone: [facility] 12-25-2021 16:18-0500 Diastolic Blood Pressure Non-Invasive 69 1 INES DENNIS MD [facility] 12-25-2021 16:18-0500 Systolic Blood Pressure Non-Invasive 189 1 INES DENNIS MD [facility] 12-25-2021 15:56-0500 Body height 157.5 cm INES DENNIS MD [facility] 12-25-2021 15:56-0500 Body temperature 96.44 [degF] INES DENNIS MD [facility] 12-25-2021 15:56-0500 Body weight 65.9 kg INES DENNIS MD [facility] 12-25-2021 15:56-0500 Diastolic Blood Pressure Non-Invasive 109 1 INES DENNIS MD [facility] 12-25-2021 15:56-0500 Heart rate 90 /min INES DENNIS MD [facility] 12-25-2021 15:56-0500 Respiratory rate 20 /min INES DENNIS MD [facility] 12-25-2021 15:56-0500 Systolic Blood Pressure Non-Invasive 202 1 INES DENNIS MD [facility] 12-06-2021 12:58-0400 Diastolic blood pressure 77 mm[Hg] DR KEVIN VIRGEN MD [address] [place] [address] 12-06-2021 12:58-0400 Mean blood pressure 111 mm[Hg] DR KEVIN VIRGEN MD [address] [place] [address] 12-06-2021 12:58-0400 Systolic blood pressure 180 mm[Hg] DR KEVIN VIRGEN MD [address] [place] [address] 12-06-2021 12:55-0400 Diastolic blood pressure 77 mm[Hg] DR KEVIN VIRGEN MD [address] [place] [address] 12-06-2021 12:55-0400 Heart rate 60 /min DR KEVIN VIRGEN MD [address] [place] [address] 12-06-2021 12:55-0400 Mean blood pressure 111 mm[Hg] DR KEVIN VIRGEN MD [address] [place] [address] 12-06-2021 12:55-0400 Reason For Taking VItal Signs DR KEVIN VIRGEN MD [address] [place] [address] 12-06-2021 12:55-0400 Respiratory rate 18 /min DR KEVIN VIRGEN MD [address] [place] [address] 12-06-2021 12:55-0400 Systolic blood pressure 180 mm[Hg] DR KEVIN VIRGEN MD [address] [place] [address] 12-06-2021 08:46-0400 Heart rate 78 /min DR KEVIN VIRGEN MD [address] [place] [address] 12-06-2021 08:30-0400 Body temperature 98.06 [degF] DR KEVIN VIRGEN MD [address] [place] [address] 12-06-2021 08:30-0400 Diastolic blood pressure 82 mm[Hg] DR KEVIN VIRGEN MD [address] [place] [address] 12-06-2021 08:30-0400 Heart rate 77 /min DR KEVIN VIRGEN MD [address] 12-06-2021 08:30-0400 Mean blood pressure 106 mm[Hg] DR KEVIN VIRGEN MD [address] [place] [address] 12-06-2021 08:30-0400 Reason For Taking VItal Signs DR KEVIN VIRGEN MD [address] 12-06-2021 08:30-0400 Respiratory rate 17 /min DR KEVIN VIRGEN MD [address] 12-06-2021 08:30-0400 Systolic blood pressure 155 mm[Hg] DR KEVIN VIRGEN MD [address] [place] [address] 12-06-2021 03:45-0400 Body temperature 97.88 [degF] DR KEVIN VIRGEN MD [address] [place] [address] 12-06-2021 03:45-0400 Reason For Taking VItal Signs DR KEVIN VIRGEN MD [address] [place] [address] 12-06-2021 03:45-0400 Respiratory rate 18 /min DR KEVIN VIRGEN MD [address] 12-05-2021 23:53-0400 Body temperature 98.06 [degF] DR KEVIN VIRGEN MD [address] [place] [address] 12-04-2021 15:33-0400 Heart rate 56 /min DR KEVIN VIRGEN MD [address] [place] [address] 12-04-2021 02:47-0400 Heart rate 55 /min DR KEVIN VIRGEN MD [address] [place] [address] 12-03-2021 23:44-0400 Heart rate 60 /min DR KEVIN VIRGEN MD [address] [place] [address] 12-03-2021 21:46-0400 Body height [address] KEVIN VIRGEN MD [address] [place] [address] 12-03-2021 21:46-0400 Body weight 83.[address] KEVIN VIRGEN MD [address] 12-03-2021 21:46-0400 Body weight 32.73 kg/m2 DR KEVIN VIRGEN MD [address] 12-03-2021 21:30-0400 Heart rate 86 /min DR KEVIN VIRGEN MD [address] 12-03-2021 14:26-0400 Body temperature 98.06 [degF] DR KEVIN VIRGEN MD [address] [place] [address] 12-03-2021 14:26-0400 Body weight 83.[address] KEVIN VIRGEN MD [address] NEGATED: Highlighted [id number] 10:24-0500 BMI (Body Mass Index) 37.26 kg/m2 Rigo Best AT [facility] Work Phone: NEGATED: Highlighted [id number] 10:24-0500 BP Diastolic 72 mm[Hg] Rigo Best AT [facility] Work Phone: NEGATED: Highlighted [id number] 10:24-0500 BP Diastolic 82 mm[Hg] Rigo Best AT [facility] Work Phone: NEGATED: Highlighted [id number] 10:24-0500 BP Systolic 154 mm[Hg] Rigo Sitko AT [facility] Work Phone: NEGATED: Highlighted [id number] 10:24-0500 BP Systolic 149 mm[Hg] Rigo Sitko AT [facility] Work Phone: NEGATED: Highlighted [id number] 10:24-0500 Height 157.48 cm Rigo Sitko AT [facility] Work Phone: NEGATED: Highlighted [id number] 10:24-0500 Height 157 cm Rigo Sitko AT [facility] Work Phone: NEGATED: Highlighted [id number] 10:24-0500 Pulse (Heart Rate) 60 /min Rigo Sitclaudia AT [facility] Work Phone: NEGATED: Highlighted [id number] 10:24-0500 Weight 92.08 kg Rigo Sitko AT [facility] Work Phone: NEGATED: Highlighted [id number] 10:24-0500 Weight 92 kg Rigo Sitclaudia AT [facility] Work Phone: Encounters Encounter Date Encounter Type Care Provider Facility Start: 08-28-2024 ambulatory Efmargarette Medel Facili ty:[facility] Start: 08-21-2024 ambulatory Efewongbe Gianfranco OLS Fa cility:[facility] Start: 08-21-2024 Registered Referred Jairon Medel MD -[facility] Start: 07-24-2024 End: 07-24-[address] Warner Leos MD Work Phone: -[facility] Start: 07-24-2024 End: 07-24-2024 Patient encounter procedure Jane Barth -C -[facility] Work Phone: Start: 07-24-2024 End: 07-24-2024 Emergency department patient visit Dr. Warner Leos MD Work Phone: -Emergency Department Work Phone: Start: 06-27-2024 End: 06-27-[address] Warner Leos MD Work Phone: -[facility] Start: 06-27-2024 End: 06-27-[address] Jairon Medel MD -[facility] Work Phone: Start: 06-26-2024 End: 06-26-[address] Warner Leos MD Work Phone: [facility] Work Phone: Start: 06-26-2024 End: 06-26-2024 Departed Referred Jairon Ruvalcaba Start: 06-26-2024 End: 06-26-2024 ambulatory Jairon TREVIÑO Facility:[facility] Start: 05-29-2024 End: 05-29-[address] Warner Leos MD Work Phone: [facility] Work Phone: Start: 05-29-2024 End: 05-29-2024 Departed Referred Jairon Ruvalcaba Start: 05-29-2024 Registered Referred Jairon Ruvalcaba Start: 05-29-2024 End: 05-29-2024 ambulatory Jairon TREVIÑO Facility:[facility] Start: 05-24-2024 End: 05-24-[address] Warner Leos MD Work Phone: [facility] Work Phone: Start: 05-24-2024 End: 05-24-2024 Departed Referred Jairon Ruvalcaba Start: 05-24-2024 Registered Referred Jairon Ruvalcaba Start: 05-23-2024 End: 05-24-[address] Warner Leos MD Work Phone: [facility] Work Phone: Start: 05-23-2024 End: 05-23-2024 Patient encounter procedure Jane Barth [facility] Work Phone: Start: 05-15-2024 End: 05-15-[address] Warner Leos MD Work Phone: [facility] Work Phone: Start: 05-15-2024 End: 05-15-2024 Departed Referred Jairon LockhartKate Ruvalcaba Start: 05-15-2024 Registered Referred Jairon LockhartKate Ruvalcaba Start: 05-15-2024 End: 05-15-2024 ambulatory Efmargarette Medel OLS Facility:[facility] Start: 05-12-2024 End: 05-12-[address] Warner Leos MD Work Phone: [facility] Work Phone: Start: 05-12-2024 End: 05-12-2024 Patient encounter procedure Jane Barth [facility] Work Phone: Start: 05-01-2024 End: 05-01-[address] Warner Leos MD Work Phone: [facility] Work Phone: Start: 05-01-2024 End: 05-01-2024 Departed Referred Jairon Ruvalcaba Start: 05-01-2024 End: 05-01-2024 ambulatory Efsreekanthbraden Medel OLS Facility:[facility] Start: 04-26-2024 End: 04-26-2024 ambulatory Janedieter Sanchezmartha Facility:[facility] Start: 04-26-2024 End: 04-26-2024 Patient encounter procedure Jane Barth [facility] Work Phone: Start: 04-11-2024 End: 04-11-2024 ambulatory Warner Leos Facility:[facility] Start: 04-11-2024 End: 04-11-[address] Jairon Medel MD -[facility] Work Phone: Start: 04-03-2024 End: 04-03-2024 Patient encounter procedure Jane CASTRO -[facility] Work Phone: Start: 04-03-2024 End: 04-03-2024 ambulatory Janedieter Barth Facility:[facility] Start: 04-03-2024 Registered Referred Jairon Ruvalcaba Start: 03-27-2024 ambulatory Jairon TREVIÑO Fa cility:[facility] Start: 03-27-2024 Registered Referred Jairon Ruvalcaba Start: 02-29-2024 End: 02-29-2024 ambulatory aWrner Leos Facility:[facility] Start: 02-29-2024 End: 02-29-[address] Jairon Medel MD -[facility] Work Phone: Start: 02-28-2024 End: 02-28-2024 Departed Referred Jairon LockhartKate Ruvalcaba Start: 02-28-2024 End: 02-28-2024 ambulatory Jairon TREVIÑO Facility:[facility] Start: 02-24-2024 End: 02-24-2024 ambulatory Janedieter Barth Facility:[facility] Start: 02-24-2024 End: 02-24-2024 Patient encounter procedure Jane CASTRO -[facility] Work Phone: Start: 02-11-2024 End: 02-23-[address] LARRY THOMAS DO Facility:[facility] Start: 02-09-2024 End: 02-10-2024 Emergency department patient visit ELDA DEL ROSARIO APRN-RIVET TOSSER Facility:[facility] Start: 02-09-2024 End: 02-10-2024 Observation ELDA DEL ROSARIO APRN-RIVET TOSSER [facility] Start: 01-21-2024 End: 01-21-2024 Emergency department patient visit INES DENNIS MD [facility] Start: 01-05-2024 End: 01-05-[address] LARRY THOMAS DO [facility] Start: 01-05-2024 End: 01-05-[address] LARRY THOMAS DO [facility] Start: 12-29-2023 End: 12-29-[address] LARRY THOMAS DO [facility] Start: 12-29-2023 End: 12-29-[address] LARRY THOMAS DO [facility] Start: 12-21-2023 End: 12-21-[address] LARRY THOMAS DO [facility] Start: 12-21-2023 End: 12-21-[address] LARRY THOMAS DO [facility] Start: 12-18-2023 End: 01-26-[address] LARRY THOMAS DO Facility:[facility] Start: 12-15-2023 End: 12-15-[address] LARRY THOMAS DO [facility] Start: 12-15-2023 End: 12-15-[address] LARRY THOMAS DO [facility] Start: 12-15-2023 End: 12-19-[address] LARRY THOMAS DO [facility] Start: 12-15-2023 End: 12-19-[address] LARRY THOMAS DO [facility] Start: 12-09-2023 End: 12-09-2023 Emergency department patient visit INES DENNIS MD [facility] Start: 11-29-2023 End: 11-29-2023 Emergency department patient visit SONNY STAHL DO [facility] Start: 07-08-2023 End: 07-09-[address] LARRY THOMAS DO Facility:[facility] Start: 07-08-2023 End: 07-08-[address] LARRY THOMAS DO [facility] Start: 04-14-2023 End: 04-15-2023 ambulatory MAHAD LORENZO MD Facility:[facility] Start: 04-14-2023 End: 04-14-2023 Patient encounter procedure MAHAD LORENZO MD [facility] Start: 04-09-2023 End: 05-06-[address] LARRY THOMAS DO Facility:[facility] Start: 04-09-2023 End: 02-14-[address] LARRY THOMAS DO Facility:[facility] Start: 04-07-2023 End: 04-08-[address] LARRY THOMAS DO Facility:[facility] Start: 04-07-2023 End: 04-07-2023 Patient encounter procedure MAHAD LORENZO MD [facility] Start: 03-10-2023 End: 03-11-[address] LARRY THOMAS DO Facility:[facility] Start: 12-14-2022 End: 12-15-[address] LARRY TOHMAS DO Facility:[facility] Start: 2022 End: 11-09-[address] LARRY THOMAS DO Facility:[facility] Start: 2022 End: 11-09-2022 Coordination of care plan DR LARRY THOMAS DO [facility] Start: 09-16-2022 End: 09-17-[address] LARRY THOMAS DO Facility:[facility] Start: 07-16-2022 End: 07-17-[address] ANISA GOMEZ MD Facility:[facility] Start: 06-19-2022 End: 06-19-[address] ANISA GOMEZ MD [facility] Start: 06-03-2022 Telephone encounter Paula Yepez MD Work Phone: General Surgery Comment on above: Request for medical records Start: 04-15-2022 End: 04-15-[address] LARRY THOMAS DO [facility] Start: 04-14-2022 End: 04-14-[address] LARRY THOMAS DO [facility] Start: 04-06-2022 End: 04-07-2022 ambulatory PAULA ALANIZ Facility:[facility] Start: 04-06-2022 End: 04-06-2022 Patient encounter procedure Paula Alaniz MD Work Phone: General Surgery Comment on above: Abnormal ultrasound of breast; History of left breast cancer Start: 03-23-2022 End: 03-23-2022 Patient encounter procedure ALANNA WRIGHT DO [facility] Start: 03-09-2022 End: 03-09-[address] LARRY THOMAS DO [facility] Start: 02-23-2022 End: 02-23-2022 Patient encounter procedure ALANNA WRIGHT DO [facility] Start: 01-22-2022 End: 01-22-2022 Patient encounter procedure ALANNA WRIGHT DO [facility] Start: 12-25-2021 End: 12-25-2021 Emergency department patient visit INES DENNIS MD [facility] Start: 12-03-2021 End: 12-06-[address] KEVIN VIRGEN MD [facility] Start: 05-05-2021 End: 05-05-2021 Patient encounter procedure ALANNA Herrera ADRIANA MONREAL [facility] Start: 12-11-2020 End: 12-11-2020 Patient encounter procedure SEAN POOLE MD [facility] Start: 03-01-2018 Patient encounter procedure [facility] Start: 01-17-2018 End: 01-17-2018 Patient encounter procedure Carla Dye MD Work Phone: [facility] Work Phone: Start: 05-18-2017 Patient encounter procedure [facility] Procedures Date Procedure Procedure Detail [...] Date Care Activity Detail Author Start: 07-24-2024 [facility] Start: 02-08-2022 ADVANCE DIRECTIVE DISCUSSION ADVANCE DIRECTIVE DISCUSSION [facility] Start: 02-08-2022 DEPRESSION ASSESSMENT DEPRESSION ASSESSMENT [facility] Start: 08-10-2021 COVID-19 VACCINE (5 - Booster for Moderna series) COVID-19 VACCINE (5 - Booster for Moderna series) [facility] Start: 01-17-2018 End: 01-17-2018 Appointment Appointment [facility] Work Phone: Start: 09-23-2003 BONE DENSITY BONE DENSITY [facility] Start: 09-23-2003 PNEUMOCOCCAL: 65+ (1 - PCV) PNEUMOCOCCAL: 65+ (1 - PCV) [facility] Start: 1988 SHINGRIX VACCINE (1 of 2) SHINGRIX VACCINE (1 of 2) [facility] Start: 09-23-1983 DIABETES SCREEN DIABETES SCREEN [facility] Start: 1957 Urine microalbumin profile DTAP,TDAP,TD (1 - Tdap) [facility] Patient Education ED Pelvic Fracture [facility] Work Phone: Patient referral [facility] Work Phone: Immunizations Immunization Date Immunization Notes Care Provider [facility] 12-27-2022 SARS-CoV-2 (COVID-19 ) [id number] MAHAD LORENZO MD [facility] 11-05-2022 zoster vaccine recombinant MAHAD LORENZO MD [facility] 10-03-2022 influenza virus vacc ine, unspecified formulation MAHAD LORENZO MD [facility] 09-15-2022 pneumococcal 20-lisa nt conjugate vaccine MAHAD LORENZO MD [facility] 01-10-2022 influenza virus vacc ine, unspecified formulation MAHAD LORENZO MD [facility] 06-15-2021 SARS-CoV-2 (COVID-19 ) mRNA-1273 vaccine MAHAD LORENZO MD [facility] 12-12-2020 SARS-CoV-2 (COVID-19 ) mRNA-1273 vaccine MAHAD LORENZO MD [facility] Comment on above: Result Comment: 2022: [id number] 10-22-2020 influenza virus vacc ine, unspecified formulation MAHAD LORENZO MD [facility] 03-28-2020 COVID-19, mRNA, LNP- S, PF, 100 mcg/ 0.5 mL dose; Translations: [Moderna COVID-19 Vaccine] SEAN POOLE MD [facility] 02-29-2020 COVID-19, mRNA, LNP- S, PF, 100 mcg/ 0.5 mL dose; Translations: [Moderna COVID-19 Vaccine] SEAN POOLE MD [facility] 10-12-2019 influenza virus vacc ine, unspecified formulation SEAN POOLE MD [facility] Comment on above: Result Comment: phar liv administered 10-11-2019 influenza virus vacc ine, unspecified formulation MAHAD LORENZO MD [facility] 10-11-2019 pneumococcal conjuga te vaccine, 13 valent SEAN POOLE MD [facility] 10-07-2018 influenza virus vacc ine, unspecified formulation SEAN POOLE MD [facility] 12-21-2017 influenza virus vacc ine, unspecified formulation SEAN POOLE MD [facility] 10-27-2016 influenza virus vacc ine, unspecified formulation SEAN POOLE MD [facility] 10-29-2015 influenza virus vacc matias, unspecified formulation SEAN POOLE MD [facility] 10-30-2014 influenza virus vacc ine, unspecified formulation SEAN POOLE MD [facility] 10-31-2013 influenza virus vacc ine, unspecified formulation SEAN POOLE MD [facility] 11-01-2012 influenza virus vacc matias, unspecified formulation SEAN POOLE MD [facility] 01-09-2005 pneumococcal polysaccharide vaccine, 23 valent SEAN POOLE MD [facility] No information available. Rigo Best AT [facility] Work Phone: Payers Date Payer Category Payer Self-pay [id number] 2017 Private Health Insurance [id number] 2017 Unknown [id number] 2003 Medicare [id number] 2003 Medicare [id number] 1938 Unknown [id number] 2.16.840.1.447049.3.579.2. 1938 Unknown [id number] 2.16.840.1.785553.3.579.2. 1938 Unknown [id number] 2..840.1.625772.3.579.2 1938 Unknown [id number] 2..840.1.972117.3.579.2. 1938 Unknown [id number] 2.840.1.790737.3.579.2 1938 Unknown [id number] 2.840.1.835653.3.579.2 1938 Unknown [id number] 2.840.1.161778.3.579.2 1938 Unknown [id number] 2.840.1.938543.3.579.2 1938 Unknown [id number] 2.840.1.983016.3.579.2 1938 Unknown [id number] 2.840.1.001898.3.579.2 1938 Unknown [id number] 2.840.1.448967.3.579.2 1938 Unknown [id number] 2.840.1.937945.3.579.2 1938 Unknown [id number] 2.840.1.550198.3.579.2. 1938 Unknown [id number] 2.16840.1.521538.3.579.2 1938 Unknown [id number] 2.16840.1.496289.3.579.2. 1938 Unknown [id number] 2.840.1.342458.3.579.2 1938 Unknown [id number] 2.16.840.1.339286.3.579.2.627 Medicare MEDICARE PART A B [id number] 1 [id number] Unknown [id number] 2.16.840.1.541902.3.579.2.462 Unknown [id number] 2.16.840.1.630576.3.579.2.462 Unknown [id number] 2.16.840.1.630514.3.579.2.462 Unknown [id number] 2.16.840.1.764971.3.579.2.462 Unknown [id number] 2.16.840.1.946815.3.579.2.462 Unknown [id number] 2.16.840.1.929148.3.579.2.462 Unknown [id number] 2.16.840.1.963718.3.579.2.462 Unknown [id number] 2.16.840.1.865167.3.579.2.462 Unknown [id number] 2.16.840.1.754640.3.579.2.462 Unknown [id number] 2.16.840.1.250161.3.579.2.462 Unknown [id number] 2.16.840.1.604437.3.579.2.462 Unknown [id number] 2.16.840.1.771165.3.579.2.462 Unknown [id number] 2.16.840.1.840795.3.579.2.462 Unknown [id number] 2.16.840.1.233737.3.579.2.462 Unknown [id number] 2.16.840.1.351837.3.579.2.462 Unknown [id number] 2.16.840.1.997350.3.579.2.462 Unknown [id number] 2.16.840.1.384660.3.579.2.462 Unknown [id number] 2.16.840.1.051684.3.579.2.462 Unknown [id number] 2.16.840.1.500652.3.579.2.462 Unknown [id number] 2.16.840.1.541069.3.579.2.462 Social History Date Type Detail Facility Start: 01-17-2018 End: 01-17-2018 Assertion Unknown if ever smoked [facility] Work Phone: Start: 04-07-2019 End: 08-26-2024 Never smoked tobacco (finding) [facility] Sex Assigned At [facility] Start: 04-06-2022 Tobacco use and exposure Smokeless tobacco non-user [facility] Start: 04-06-2022 Alcohol intake 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 (finding) [facility] Start: 1940 Sex Assigned At Not on file [facility] Start: 05-25-2013 End: 05-31-2024 Sex Female (finding) [facility] Start: 1940 Sex Assigned At Female [facility] Medical Equipment Procedure Code Equipment Code Equipment [...] gray q2hrs Performed Other: 7AM - 4PM [facility] 02-10-2024 Functional Status Financial gaston gement, Home management, Laundry, Meal preparation, Personal ADL, Shopping [facility] 02-10-2024 Functional Status Sup [facility] 02-10-2024 Functional Status Identified as high risk, Door open, Non-Slip footwear, Room check performed [facility] 02-10-2024 Functional Status Jerrell Garcia [facility] 02-10-2024 Functional Status Jerrell [facility] 02-10-2024 Functional Status Jerrell [facility] 02-09-2024 [facility] Functional Status Minimum assistance [facility] 01-21-2024 Functional Status Independent [facility] [facility] Functional Status Minimum assistance [facility] 12-09-2023 Functional Status ID band on, Call device within reach, Bed in low position, Wheels locked, Upper/Half-Length side-rails up, Visitor at bedside, Safety level maintained [facility] 11-29-2023 Functional Status Up ad nazario [facility] 11-29-2023 Functional Status Standard Safet y ID band on, Call device within reach, Bed in low position, Wheels locked, Upper/Half-Length side-rails up, Visitor at bedside [facility] 06-19-2022 Functional Status Sensory Deficits None [facility] 12-25-2021 Functional Status Independent [facility] 12-06-2021 Functional Status None [facility] 12-06-2021 Functional Status Room check performed [facility] 12-06-2021 [facility] Status [facility] 12-05-2021 Functional Status [facility] 12-05-2021 Functional Status [facility] 12-05-2021 Functional Status Mod A [facility] Functional Status Single level home [facility] 12-04-2021 Functional Status [facility] 12-04-2021 Functional Status [facility] 12-04-2021 Functional Status [facility] 12-04-2021 Functional Status [facility] 12-04-2021 Functional Status SCD On/Re-appl ied bilateral knee high [facility] 12-03-2021 Functional Status Ambulation in Room [facility] Mental Status Date Assessment Result Facility 02-10-2024 Mental Status Not oriented to time, Forgetful, Follows simple commands [facility] 02-09-2024 Mental Status [facility] 02-09-2024 Mental Status [facility] 01-21-2024 Mental Status Orientation Not oriented to situation, Forgetful [facility] 01-21-2024 Mental Status [facility] 12-09-2023 Mental Status Orientation Oriented x 4 [facility] 12-09-2023 Mental Status [facility] 11-29-2023 Mental Status Orientation Oriented x 4 [facility] 11-29-2023 Mental Status [facility] 12-25-2021 Mental Status Orientation Oriented x 4 [facility] 12-06-2021 Mental Status Oriented x 4, Forgetful [facility] 12-06-2021 Mental Status [facility] 12-06-2021 Mental Status [facility] Clinical Notes 12-03-2021 to 07-24-2024 Note Date & Type Note Facility 07-24-2024 Discharge summary [facility] 07-24-2024 Radiology Diagnostic study note [facility] Imaging Services [address] [place] [address] HIP, UNI W/ Pelvis 2-3 Views MR#: [id number] Acct: [id number] Name: CT DALTON Rep #: [id number] : 1940 F 83 From: Jane Vance MD PCP: Dr. Jairon Medel MD Status: R EG ER Study:HIP, UNI W/ Pelvis 2-3 Views Date of Ex am: 07/24/24 Exam# [id number] Ordering Dr: Sharon Harry MD PROCEDURE: HIP, [...] Right hip moderate degenerative changes. Reading Location: [place] [address] CC: Dr. Jairon Medel MD; Dr. Jean Claude Harry MD ~ Career Technical Education Instructor: Signed [facility] 02-10-2024 Hospital Discharge instructions Patient Education 02/10/2024 15:03:52 Dementia, Jybb-dc-Wziy Dementia Dementia is a condition that affects [...] Follow these instructions at home: Medicines Take boxf-auw-plhcjon and prescription medicines only as told by [...] 01/07/2009 Document Revised: 04/11/2019 Document Reviewed: 04/11/2019 [employer] Patient Education 2020 [employer]. Follow Up Care 02/09/2024 19:37:05 With:LARRY THOMAS DO Address: [address] [place] [phone] When:02/16/2024 09:30:00 Comments:This is your post-hospital appointment. Follow-up as scheduled. [facility] 02-10-2024 Note Discharge Instructions Thank you for allowing [facility] to assist you with your healthcare needs. The following is important discharge information regarding your hospital visit. Your Care Team SUSY ALBRIGHT APRN-SHAMEKA Your Diagnosis (HFpEF) heart failure with preserved ejection fraction Dementia Weakness What to do next Scheduled Follow-Up Appointments Appointment Type When With Where Contact Information StatusPC OV 02/16/2024 09:30 AM EST LARRY THOMAS DO [address] [phone] Confirmed Follow Up Appointments Follow Up with LARRY THOMAS DO When:02/16/2024 09:30 AM EST Where:[address] [place] [phone] Additional Information: This is your post-hospital appointment. [...] Leaflets memantine (cyndie MAN teen) Namenda, Namenda XR What is [...] may report side effects to FDA at 4-358-GBH-5980. What other drugs will affect memantine? Tell [...] may interact with memantine, including prescription and jgvf-rpb-xefjgbg medicines, vitamins, and herbal products. Not all [...] to ensure that the information provided by [employer]. ('Mult[employer]') is accurate, up-to-date, and complete, but no guarantee is made to that effect. Drug information contained herein may be time sensitive. [employer] information has been compiled for use by healthcare practitioners and consumers in the [place] and therefore [employer] does not warrant that uses outside of the [place] are appropriate, unless specifically indicated otherwise. [employer] drug information does not endorse drugs, diagnose patients or recommend therapy. [employer] drug information is an informational resource designed [...] effective or appropriate for any given patient. [employer] does not assume any responsibility for any aspect of healthcare administered with the aid of information [employer] provides. The information contained herein is not intended to cover all possible uses, directions, precautions, warnings, drug interactions, allergic reactions, or adverse effects. If you have questions about the drugs you are taking, check with your doctor, nurse or pharmacist. Copyright 1286-9885 [employer]. Version: 5.01. Revision Date: 09/21/2022. Education Materials [...] Follow these instructions at home: Medicines Take bopn-gqx-skawcmy and prescription medicines only as told by [...] Document Reviewed: 04/11/2019 Elsevier Patient Education 2020 [employer] Inc. Additional Information VACCINATE! IT SAVES LIVES! Members of the community who have not yet received the COVID-19 vaccine and would like to receive it can visit one of [facility] vaccine clinics. There are many vaccine clinic locations within the State. For locations and available times, please visit https://gettheshot.coronavirus.[place].gov/. It is important to note that some COVID mobile vaccine clinics are held outdoors and may be canceled in rainy or stormy conditions. To learn more about pediatric vaccinations (ages 5-11), we invite you to visit the [employer] webpage. https://www.[employer]iAQ [employer] Technologiess.org/pag es/0076-Eflca-Dggusnihgwp-Frequent cl-Fdcep-Qhwqwgiza.html To learn more about the COVID-19 vaccine, we invite you to visit the CDC website for a list of frequently asked questions.https://www.cdc.gov/armando navirus/2019-ncov/vaccines/faq.htm l [facility] Patient Portal Access Instructions: Stay connected with your healthcare team and access your personal medical information anytime with the [facility] Patient Portal. Please follow the directions below to create your [facility] account: 1.Access the email account you provided upon registration to the hospital/physician office.2.Look for an invitation email from [facility].3.Open the email and access the invitation link: Accept Invitation to [facility].4.Fill in the required alejandro to create your account. To access your account, visit startuply/[employer] VenturesOneChart. Click the blue button labeled "Access Patient [...] you will allow to register on the [facility] Patient Portal for access to your information. You can also access the [facility] Patient Portal on the [employer] Anywhere angelica. Simply click on "Patient Portal" and then log into your account. If you would like to receive a full copy of your medical records, please contact the [facility] Medical Records Department by calling [phone], Wednesday through Wednesday between 8 a.m. and [...] Call your local pharmacy or go to http://Everdream.BuyNow WorldWide/8L8Ov3d to find one close to you.3.Make use of household items: Use cat litter or old coffee grounds to dispose medications if other options are not available. Mix your drugs with these household products, seal them in an airtight container and throw it into the garbage. Call [facility]: [phone] to be sure your drugs can be [...] CHART COPY. Signatures Patient Education Materials Dementia, Ojee-dn-Gtkz Medication Leaflets memantine My discharge plan and instructions have been reviewed and explained to me and I,CT DALTON understand my current condition and have read and understand these discharge instructions. I have received a written copy of the plan/instructions. If I have questions, I am aware that I should contact my doctor. 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 Weakness 2. (HFpEF) heart failure [...] Date:02/16/2024 09:30:00 AM Scheduled Provider:LARRY THOMAS DO Location:[facility] Appointment Type:PC OV [facility] 01-02-2025 Note Date of Service 02/10/24 Chief Complaint patient called EMS with complaint of BLE swelling. patient poor historian but continues to report BLE swelling on arrival. also states that she feels weak. History of Present Illness 83 year old female with past medical history of dementia, urinary frequency, dizziness, breast cancer, CKD Stage 3, anemia, HLD, HFpEF. Patient presented to [facility] ED on 02/09/24 due to family concerns [...] by SUSY ALBRIGHT on 02/10/2024 10:21 AM [place] [address]-01-2025 Note* Exam Date Time Procedure Performing Provider Status 02/09/24 8:10 PM XR Chest 1 View EILEEN CHRISTINE DO; Arnaldo h (Verified) [id number] ORIGINAL EXAMINATION: ONE XRAY VIEW OF THE [...] 02/09/2024 9:08:10 PM Ordering Provider: TRIXIE BARONE [facility]01-01-2025 Note* Exam Date Time Procedure Performing Provider Status 02/09/24 7:59 PM EKG [ED AOH] - CV MD TRIXIE BARONE MD; Auth (Verified) ECG Final Report Sinus rhythm LVH by voltage Inferior infarct, old Anterior Q waves, possibly due to LVH Electronic Signature: MD TRIXIE BARONE MD 02/09/2024 20:03:00 [facility]12-13-2024 Hospital Discharge instructions Patient Education 01/21/2024 [...] mid-urethra. Front view of female urinary tract. [id number] The IID[address] [place] [address]. All rights reserved. This information is not intended as a substitute for professional medical care. Always follow yourhealthcare professional's instructions. Follow Up Care 01/21/2024 09:33:55 With:LARRY THOMAS DO Address: [address] [facility] [place] [phone] When:2-4 days [facility] 12-13-2024 Note Discharge Instructions Thank you for allowing [facility] to assist you with your healthcare needs. The following is importantdischarge information regarding your hospital visit. Diagnosis from Today's Visit Bladder pain What to Do Next Instructions from Your Care Team No qualifying data available. Post Acute Orders No qualifying data available. You Need to Schedule the Following Appointments Follow Up with LARRY THOMAS DO When:Within 2-4 days Where:0 [facility] [place] [address] [phone] Allergies NKA Medications Please ask your primary [...] mid-urethra. Front view of female urinary tract. [phone] The IID. [address] [place] [address], [place] [address]. All rights reserved. This information is not intended as a substitute for professional medical care. Always follow yourhealthcare professional's instructions. Additional Information VACCINATE! IT SAVES LIVES! Members of the community who have not yet received the COVID-19 vaccine and would like to receive it can visit one of [facility] vaccine clinics. There are many vaccine clinic locations within the [facility]. For locations and available times, please visit www.gettheshot.coronavirus.[place].gov/. It is important to note that some COVID mobile vaccine clinics are held outdoors and may be canceled in rainy or stormy conditions. To learn more about pediatric vaccinations (ages 5-11), we invite you to visit the [facility] webpage. https://www.[facility].org/pages/0726-Nqzth-Ejdufscufau-Sddluaxzaj-Ltlsc-Ycs stions.htmlTo learn more about the COVID-19 vaccine, we invite you to visit the CDC website for a list of frequently asked questions. https://www.cdc.gov/coronavirus/2019-ncov/vaccines/faq.html [facility]Chart Patient Portal Access Instructions: Stay connected with your healthcare team and access your personal medical information anytime with the [facility]Chart Patient Portal. If you would like a full copy of your medical records please contact the [facility] Medical Records Department Wednesday through Wednesday between 8a.m. and 4:30p.m. Please follow the directions below to access the portal: 1.Access the email account you provided upon registration to the special care hospital.2.Look for an invitation email from [facility].3.Open the email and access the invitation link: Accept Invitation to [facility]4.Fill in the required alejandro to create your account. Sign into [email or web address] with your username and password that you [...] you will allow to register on the [facility] Patient Portal for access to your information. You can also access the [facility] Patient Portal on the [employer]. Simply click on "Health Records" under "HealthData" and then click on the [employer] logo. HOW TO SAFELY DISPOSE OF PRESCRIPTION [...] Call your local pharmacy or go to http://Everdream.BuyNow WorldWide/1J0Fd4c to find one close to you.3.Make use of household items: Use cat litter or old coffee grounds to dispose medications if other options arenot available. Mix your drugs with these household products, seal them in an airtight container andthrow it into the garbage. Call [facility]: [phone] to be sure your drugs can be [...] aware that I should contact my doctor. Patient/Hvac Project Engineer Signature: Date/Time: Relationship to Patient: Witness Name/Signature: Date/Time: [facility]11-12-2024 Note ORIGINAL EXAMINATION: AP lateral obliques [...] Sign Date: 12/21/2023 4:34:05 PM Ordering Provider: [facility]11-12-2024 Note ORIGINAL EXAMINATION: TWO XRAY [...] Sign Date: 12/21/2023 4:21:17 PM Ordering Provider: [facility]11-09-2024 Note. MICRO - Microbiology PROCEDURE: [...] Locations *1: This test was performed at: [facility], [address] [place] [address], [phone]- , [facility]10-31-2024 Hospital Discharge instructions Patient Education 12/09/2023 09:33:25 [...] mid-urethra. Front view of female urinary tract. [phone] The IID. [address] [place] [address]. All rights reserved. This information is not intended as a substitute for professional medical care. Always follow yourhealthcare professional's instructions. Follow Up Care 12/09/2023 08:33:51 With:LARRY THOMAS DO Address: [address] [place] [phone] When:2-4 days [facility] 10-31-2024 Note Discharge Instructions Thank you for allowing [facility] to assist you with your healthcare needs. The following is importantdischarge information regarding your hospital visit. Diagnosis from Today's Visit Urinary frequency What to Do Next Instructions from Your Care Team No qualifying data available. Post Acute Orders No qualifying data available. You Need to Schedule the Following Appointments Follow Up with LARRY THOMAS DO When:Within 2-4 days Where:[address] [place] [phone] Allergies NKA Medications Please ask your primary [...] mid-urethra. Front view of female urinary tract. [phone] The IID. [address] [place] [address], [place] [address]. All rights reserved. This information is not intended as a substitute for professional medical care. Always follow yourhealthcare professional's instructions. Additional Information VACCINATE! IT SAVES LIVES! Members of the community who have not yet received the COVID-19 vaccine and would like to receive it can visit one of [facility] vaccine clinics. There are many vaccine clinic locations within the [facility]. For locations and available times, please visit www.gettheshot.coronavirus.[place].gov/. It is important to note that some COVID mobile vaccine clinics are held outdoors and may be canceled in rainy or stormy conditions. To learn more about pediatric vaccinations (ages 5-11), we invite you to visit the [facility] webpage. https://www.[facility].org/pages/5215-Cwktb-Wpqgyyzkbkp-Gwrveuloxd-Jqslj-Ovs stions.htmlTo learn more about the COVID-19 vaccine, we invite you to visit the CDC website for a list of frequently asked questions. https://www.cdc.gov/coronavirus/2019-ncov/vaccines/faq.html [facility] Patient Portal Access Instructions: Stay connected with your healthcare team and access your personal medical information anytime with the [facility] Patient Portal. If you would like a full copy of your medical records please contact the [facility] Medical Records Department Wednesday through Wednesday between 8a.m. and 4:30p.m. Please follow the directions below to access the portal: 1.Access the email account you provided upon registration to the hospital.2.Look for an invitation email from [facility].3.Open the email and access the invitation link: Accept Invitation to [facility]4.Fill in the required alejandro to create your account. Sign into [email or web address] with your username and password that you [...] you will allow to register on the [facility] Patient Portal for access to your information. You can also access the [facility] Patient Portal on the [employer] angelica. Simply click on "Health Records" under [...] Call your local pharmacy or go to http://Everdream.BuyNow WorldWide/2X0Ts7c to find one close to you.3.Make use of household items: Use cat litter or old coffee grounds to dispose medications if other options arenot available. Mix your drugs with these household products, seal them in an airtight container andthrow it into the garbage. Call [facility]: [phone] to be sure your drugs can be [...] aware that I should contact my doctor. Patient/Hvac Project Engineer Signature: Date/Time: Relationship to Patient: Witness Name/Signature: Date/Time: [facility]10-21-2024 Hospital Discharge instructions Patient Education 11/29/2023 [...] or swelling over your back or spine [phone] The IID. [address] [place] [address]. All rights reserved. This information is not intended as a substitute for professional medical care. Always follow yourhealthcare professional's instructions. Follow Up Care 11/29/2023 08:56:34 With:Go to emergency room if symptoms worsen Address:Unknown When:2-4 days With:LARRY THOMAS DO Address: [address] [place] [phone] When:2-4 days [facility] 10-21-2024 Note Discharge Instructions Thank you for allowing [facility] to assist you with your healthcare needs. [...] with LARRY THOMAS DO When:Within 2-4 days Where:[address] [place] [phone] Allergies NKA Medications Please ask your primary [...] or swelling over your back or spine [phone] The IID. [address] [place] [address], [place] [address]. All rights reserved. This information is not intended as a substitute for professional medical care. Always follow yourhealthcare professional's instructions. Additional Information VACCINATE! IT SAVES LIVES! Members of the community who have not yet received the COVID-19 vaccine and would like to receive it can visit one of [facility] vaccine clinics. There are many vaccine clinic locations within the State. For locations and available times, please visit www.gettheshot.coronavirus.[place].gov/. It is important to note that some COVID mobile vaccine clinics are held outdoors and may be canceled in rainy or stormy conditions. To learn more about pediatric vaccinations (ages 5-11), we invite you to visit the [facility] webpage. https://www.[facility].org/pages/7408-Pbnpz-Uhulphivcyd-Dvvlbznpfo-Ccoxx-Sqj stions.htmlTo learn more about the COVID-19 vaccine, we invite you to visit the CDC website for a list of frequently asked questions. https://www.cdc.gov/coronavirus/2019-ncov/vaccines/faq.html [facility] Patient Portal Access Instructions: Stay connected with your healthcare team and access your personal medical information anytime with the [facility] Patient Portal. If you would like a full copy of your medical records please contact the [facility] Medical Records Department Wednesday through Wednesday between 8a.m. and 4:30p.m. Please follow the directions below to access the portal: 1.Access the email account you provided upon registration to the hospital.2.Look for an invitation email from [facility].3.Open the email and access the invitation link: Accept Invitation to [facility]4.Fill in the required alejandro to create your account. Sign into [email or web address] with your username and password that you [...] you will allow to register on the [facility] Patient Portal for access to your information. You can also access the [facility] Patient Portal on the [employer] angelica. Simply click on "Health Records" under [...] Call your local pharmacy or go to http://Everdream.BuyNow WorldWide/6O0Nr6s to find one close to you.3.Make use of household items: Use cat litter or old coffee grounds to dispose medications if other options arenot available. Mix your drugs with these household products, seal them in an airtight container andthrow it into the garbage. Call [facility]: [phone] to be sure your drugs can be [...] aware that I should contact my doctor. Patient/Hvac Project Engineer Signature: Date/Time: Relationship to Patient: Witness Name/Signature: Date/Time: [facility]10-21-2024 Note ORIGINAL HISTORY: Pain COMPARISON: No [...] Date: 11/29/2023 11:51:51 AM Ordering Provider: SONNY [facility]03-06-2024 Note ORIGINAL EXAMINATION: CT OF THE HEAD [...] Sign Date: 04/14/2023 10:35:22 AM Ordering Provider: [facility]04-26-2023 Miscellaneous Notes* Telephone Encounter - Brenton Jennings RN - 06/03/2022 11:26 AM EDT Received a request from [facility] for all of Ct's left breast cancer treatment medical records. Faxed the request to medical records on [facility], fax confirmation sheet received. Brenton Jennings RN [facility] Note ORIGINAL EXAMINATION: ULTRASOUND OF THE KIDNEYS [...] Date: 04/15/2022 10:15:33 AM Ordering Provider: LARRY THOMAS [facility]03-08-2023 Note ORIGINAL EXAMINATION: ULTRASOUND OF THE [...] Sign Date: 04/15/2022 10:15:33 AM Ordering Provider: [facility]02-28-2023 NoteHNO ID: [id number] Author: Paula Alaniz MD Service: ? Author [...] needle core breast biopsies on 03/23/2022 at [facility] [facility]. Findings of "fat necrosis, inflammation and [...] cancer Kidney Disease Sister Heart disease Brother [place] The review of systems data was entered [...] of skin c (more content not included)... [facility]02-28[facility] History of Present illness Narrative* Paula [...] needle core breast biopsies on 03/23/2022 at [facility]. Findings of "fat necrosis, inflammation and [...] cancer Kidney Disease Sister Heart disease Brother AL The review of systems data was entered by the nurse and reviewed by me Nursing Notes: Mini BrookeMATILDE 04/06/2022 9:50 AM [...] her studies and testing were done at [facility], I have recommended that she proceed with her evaluation/treatment there. The breast radiologists there have recommended wire localization lumpectomy of the left breast. I have told her that I could offer her the same but it [facility] be at [facility]. She states thatshe would prefer [facility] as it is closer to home. [...] Low Paula Alaniz MD [facility] Nurse Note* Mini BrookeMATILDE - 04/06/2022 9:47 [...] ago Mini Brooke LPN documented [facility] Note ORIGINAL FROM: JERRELL MOISE [address] [place] [address] PROCEDURE FOR: CT Inga DALTON [address] [place] [phone] Home: PID#: [id number] Exam#: [id number] : 1940 Age: 81 TO: ALANNA WRIGHT DO [address] [address] Fax: NO FAX EXAMINATION: ULTRASOUND OF THE [...] ALANNA WRIGHT CLINICAL: MAMMOGRAPHIC DENSITY LEFT BREAST. Stores Clerk: JOSIE RUIZ RT(R) RDMS letter sent: Biopsy Recommended BI-RADS 4 and 5 Ultrasound BI-RADS: 4 Suspicious for malignancy [facility]12-15-2022 Note ORIGINAL FROM: [address] [place], [place] [address] PROCEDURE FOR: CT DALTON [address] [place] [phone] Home: PID#: [id number] Exam#: [id number] : 1940 Age: 81 TO: ALANNA WRIGHT DO [address] [place] [address] Fax: NO FAX EXAMINATION: ULTRASOUND OF THE [...] ALANNA WRIGHT CLINICAL: MAMMOGRAPHIC DENSITY LEFT BREAST. Stores Clerk: JOSIE RUIZ RT(R) RDMS letter sent: Biopsy Recommended BI-RADS 4 and 5 Ultrasound BI-RADS: 4 [facility] Hospital Discharge instructions Patient Education 12/25/2021 17:00:50 Dizziness, Uncertain Cause Dizziness (Uncertain Cause) Dizziness is a common symptom. It may be described as lightheadedness, spinning, or feeling like you are going to faint. Dizziness can have many causes. Be sure to tell the healthcare provider about: All medicines you take, including prescription, xbbq-cdo-dsbvquh, herbs, and supplements Any other symptoms you [...] Chest, arm, neck, back, or jaw pain 4533-[address] The [employer] [place] [address]. All rights reserved. This information is not [...] medicine was given, you may use an itft-mnx-dingnfp product made for clearingearwax (such as Debrox or Murine Earwax Drops). These contain carbamide peroxide and are available qvun-zcl-eczbiiw. Lie down with the blocked ear facing [...] ear Headache, neck pain or stiff neck 2128-8276 [employer]. [address] [place] [address], [place] [address]. All rights reserved. This information is not intended as a substitute for professional medical care. Always follow yourhealthcare professional's instructions. Follow Up Care 12/25/2021 15:48:16 With:ALANNA WRIGHT DO Address: [address] [place] [phone] When:2-4 days [facility] 11-17-2022 Note Discharge Instructions Thank you [...] WRIGHT DO When Within 2-4 days Where: [facility] [place] [address]- [phone] Allergies NKA Medications Please ask your primary [...] about: All medicines you take, including prescription, kjsl-nvi-fiurqpy, herbs, and supplements Any other symptoms you [...] Chest, arm, neck, back, or jaw pain 1077-[address] The [employer] [place] [address]. All rights reserved. This information is not [...] medicine was given, you may use an wztd-duf-ciyoubk product made for clearingearwax (such as Debrox or Murine Earwax Drops). These contain carbamide peroxide and are available ebko-mtf-slzodjm. Lie down with the blocked ear facing [...] ear Headache, neck pain or stiff neck 8146-6899 The [employer]. [address] [place] [address]. All rights reserved. This information is not intended as a substitute for professional medical care. Always follow yourhealthcare professional's instructions. Additional Information VACCINATE! IT SAVES LIVES! Members of the community who have not yet received the COVID-19 vaccine and would like to receive it can visit one of [facility] vaccine clinics. There are many vaccine clinic locations within the [facility]. For locations and available times, please visit www.[email or web address].[email or web address]. It is important to note that some COVID mobile vaccine clinics are held outdoors and may be canceled in rainy orstormy conditions. To learn more about pediatric vaccinations (ages 5-11), we invite you to visit the [facility] webpage. https://www.[facility].org/pages/3949-Yokqd-Szzeykixltx-Jrrpyoclon-Soevu-Bet stions.htmlTo learn more about the COVID-19 vaccine, we invite you to visit the [facility] website for a list of frequently asked questions. https://[email or web address]/assets/Imvsepuc-rjo-Udcqldzg/kbxmk-Rdyrehu-Skxsnlitds _Asked-Questions.pdf [facility] Patient Portal Access Instructions: Stay connected with your healthcare team and access your personal medical information anytime with the [facility] Patient Portal. If you would like a full copy of your medical records please contact the [facility] Medical Records Department Wednesday through Wednesday between 8a.m. and 4:30p.m. Please follow the directions below to access the portal: 1.Access the email account you provided upon registration to the special care hospital.2.Look for an invitation email from [facility].3.Open the email and access the invitation link: Accept Invitation to [facility]4.Fill in the required alejandro to create your account. Sign into [email or web address] with your username and password that you [...] you will allow to register on the [facility] Patient Portal for access to your information. You can also access the [facility] Patient Portal on the [employer]. Simply click on "Health Records" under "HealthData" [...] Call your local pharmacy or go to http://Everdream.BuyNow WorldWide/3R8Ei3n to find one close to you.3.Make use of household items: Use cat litter or old coffee grounds to dispose medications if other options arenot available. Mix your drugs with these household products, seal them in an airtight container andthrow it into the garbage. Call [facility]: [phone] to be sure your drugs can be [...] aware that I should contact my doctor. 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 It [...] balance is fine. 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 Take ubee-ffd-ozvusrr and prescription medicines only as told by [...] 01/14/2012 Document Revised: 01/28/2018 Document Reviewed: 02/11/2017 [employer] Patient Education 2020 [employer] 12/06/2021 14:31:38 Fall Prevention and Home Safety, Iamf-xy-Fxul Fall Prevention and Home Safety Falls cause [...] Document Reviewed: 04/26/2012 ExitCare Patient Information 2015 The Venue Report. This information is not intended to replace advicegiven to you by your health care provider. Make sure you discuss any questions you have with your health care provider. Follow Up Care 12/03/2021 14:18:30 With:[facility], [phone] Address:Unknown When:1-2 days With:ALANNA WRIGHT DO Address: [address] [place] [phone]- When:1-2 days Comments:Please call the office to schedule a follow up appointment [facility] 10-29-2022 Note Discharge Instructions Thank you for allowing [facility] to assist you with your healthcare needs. [...] Bilateral w/ Fer 12/12/2021 03:00 PM EDT [facility] Follow Up Appointments Follow Up with [facility], [phone] When Within 1-2 days Follow Up with ALANNA WRIGHT DO When Within 1-2 days Why: Please call the office to schedule a follow up appointment Where: [address] [place] [address]- The Following Activity and Diet Have Been [...] balance is fine. 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 Take pbck-mzt-wgnrgbb and prescription medicines only as told by [...] 01/14/2012 Document Revised: 01/28/2018 Document Reviewed: 02/11/2017 [employer] Patient Education 2020 [employer] Inc. Fall Prevention and Home Safety Falls [...] Document Reviewed: 04/26/2012 ExitCare Patient Information 2015 [employer] [facility]. This information is not intended to replace advicegiven to you by your health care provider. Make sure you discuss any questions you have with your health care provider. Additional Information VACCINATE! IT SAVES LIVES! Members of the community who have not yet received the COVID-19 vaccine and would like to receive it can visit one of [facility] vaccine clinics. There are many vaccine clinic locations within the [facility]. For locations and available times, please visit https://[email or web address].[email or web address]/. It is important to note that some COVID mobile vaccine clinics are held outdoors and may be canceled in rainy or stormy conditions. To learn more about pediatric vaccinations (ages 5-11), we invite you to visit the [facility] webpage. https://www.[facility].org/pages/1111-Fluae-Hemeopdrflj-Upkfpldqmo-Glcry-Eak stions.htmlTo learn more about the COVID-19 vaccine, we invite you to visit the [employer] website for a list of frequently asked questions. https://startuply/assets/Szyfxavi-jrt-Dzozohse/vzzxb-Qahqndl-Wnjgohiuxf _Asked-Questions.pdf [facility] Patient Portal Access Instructions: Stay connected with your healthcare team and access your personal medical information anytime with the [facility] Patient Portal.If you would like a full copy of your medical records, please contact the [facility] Medical Records Department, Wednesday through Wednesday between 8a.m. and 4:30p.m. Please follow the directions below to access the portal: 1.Access the email account you provided upon registration to the special care hospital.2.Look for an invitation email from [facility].3.Open the email and access the invitation link: Accept Invitation to [facility] [employer]4.Fill in the required alejandro to create your account. Sign into [email or web address] with your username and password that you [...] you will allow to register on the [facility] Patient Portal for access to your information. You can also access the [facility] Patient Portal on the Ever[employer] angelica. Simply click on "Health Records" under [...] Call your local pharmacy or go to http://bit.ly/8E1Nv1y to find one close to you.3.Make use of household items: Use cat litter or old coffee grounds to dispose medications if other options arenot available. Mix your drugs with these household products, seal them in an airtight container andthrow it into the garbage. Call [facility]: [phone] to be sure your drugs can be [...] CHART COPY. Signatures Patient Education Materials Dizziness, Fute-mx-Aayg Fall Prevention and Home Safety, Mdhl-pp-Hehm Medication Leaflets My discharge plan and instructions have been reviewed and explained to me and I,CT DALTON understand my current condition and have read and understand these discharge instructions. I have received a written copy of the plan/instructions. If I have questions, I am aware that I should contact my doctor. 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/Hvac Project Engineer Signature: Date/Time: Relationship to Patient: Witness Name/Signature: Date/Time: [facility]fi96-[facility]-4893 Note Discharge Instructions Thank you for allowing [...] Bilateral w/ Fer 12/12/2021 03:00 PM EDT [facility] Follow Up Appointments Follow Up with [facility], [phone] When Within 1-2 days Follow Up with ALANNA WRIGHT DO When Within 1-2 days Why: Please call the office to schedule a follow up appointment Where: [address] [place] [address]- The Following Activity and Diet Have Been [...] to receive it can visit one of [facility] vaccine clinics. There are many vaccine clinic locations within the [facility]. For locations and available times, please visit https://[email or web address].gov/. It is important to note that some COVID mobile vaccine clinics are held outdoors and may be canceled in rainy or stormy conditions. To learn more about pediatric vaccinations (ages 5-11), we invite you to visit the [facility] webpage. https://www.[facility].org/pages/0550-Eppha-Dinkrkxpjrw-Dqeqaknler-Nnkdf-Stl stions.htmlTo learn more about the COVID-19 vaccine, we invite you to visit the [facility] website for a list of frequently asked questions. https://[employer].Charitybuzz/assets/Txzmaaov-gok-Ykweclrd/bvhdw-Dyjmrwq-Txgzepiert _Asked-Questions.pdf [facility] Patient Portal Access Instructions: Stay connected with your healthcare team and access your personal medical information anytime with the [facility] Patient Portal.If you would like a full copy of your medical records, please contact the [facility] Medical Records Department, Wednesday through Wednesday between 8a.m. and 4:30p.m. Please follow the directions below to access the portal: 1.Access the email account you provided upon registration to the special care hospital.2.Look for an invitation email from [facility].3.Open the email and access the invitation link: Accept Invitation to [facility]4.Fill in the required alejandro to create your account. Sign into [email or web address] with your username and password that you [...] you will allow to register on the [facility] Patient Portal for access to your information. You can also access the [facility] Patient Portal on the [employer]. Simply click on "Health Records" under "[employer] and then click on the [facility] logo. [...] Call your local pharmacy or go to http://Everdream.BuyNow WorldWide/8O3Qs4a to find one close to you.3.Make use of household items: Use cat litter or old coffee grounds to dispose medications if other options arenot available. Mix your drugs with these household products, seal them in an airtight container andthrow it into the garbage. Call [facility]: [phone] to be sure your drugs can be [...] aware that I should contact my doctor. 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 Unsteady gait (R26.81 - ICD-10-CM) 2. Dizziness (R42 - ICD-10-CM) Dizziness ([id number] - PNED) HTN - Hypertension ([id number] - PNED) Additional Orders: Ordered: atenolol 25 mg oral tablet,Dose : 25 mg = 1 tab(s), Oral, qDay, # 30 tab(s), 0 Refill(s), Pharmacy: [facility]/pharmacy #[id number], 160, cm, 12/03/21 21:46:00 EDT, [...] CT head, chest x-ray, MRI brain, TTE, Mogadore- Hallpike unremarkable.ECG showed LBBB, no prior EKG [...] 100 mg daily, hydralazine 25 mg daily, zygjrrikoomondwxupg55 mg daily, lisinopril 20 mg daily. In [...] to schedule a follow up appointment Where: [address] [facility] [place] [address]- Follow Up Appointments No qualifying data available. Follow Up Labs/Studies Discharge Labs No Follow-up Labs Discharge Studies No Follow-up Studies Discharge Diet No qualifying data available. Discharge Activity No qualifying data available. Readmission Risk/Palliative Score No qualifying data available. Digitally Signed by CODY RILEY MD on 12/06/2021 11:43 AM [facility] HospitalAdtxwxej97-42-0417 Discharge summary Date of Service 12/06/21 Discharge Diagnosis 1. Unsteady gait (R26.81 - ICD-10-CM) 2. Dizziness (R42 - ICD-10-CM) Dizziness ([id number] - PNED) HTN - Hypertension ([id number] - PNED) Additional Orders: Ordered: atenolol 25 mg oral tablet,Dose : 25 mg = 1 tab(s), Oral, qDay, # 30 tab(s), 0 Refill(s), Pharmacy: [facility]/pharmacy #[id number], 160, cm, 12/03/21 21:46:00 EDT, [...] CT head, chest x-ray, MRI brain, TTE, Mogadore- Hallpike unremarkable.ECG showed LBBB, no prior EKG [...] 100 mg daily, hydralazine 25 mg daily, sxcebvaieyicvoszrzc17 mg daily, lisinopril 20 mg daily. In [...] to schedule a follow up appointment Where: [address] [place] [address] [place] [address]- Follow Up Appointments No qualifying data available. Follow Up Labs/Studies Discharge Labs No Follow-up Labs Discharge Studies No Follow-up Studies Discharge Diet No qualifying data available. Discharge Activity No qualifying data available. Readmission Risk/Palliative Score No qualifying data available. Digitally Signed by CODY RILEY MD on 12/06/2021 11:43 AM [facility] HospitalXfglsgrp94-45-9522 Note Chief Complaint Transition plan Transitional Action Points Currently is transition over to [facility] in [place] is able to accept Patient echo explained [...] are recommending SNF. She was excepted by [facility] in [place], will require COVID screen prior to transfer. 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 I Magdalena Ashley REACTOR SERVICE OPERATOR, personally performed the services described in this documentation, as described by Gladys Betancourt LPN in my presence and it is both accurate and complete. This document is transcribed using voice recognition software may contain typographical errors. Digitally Signed by MAGDALENA ASHLEY on 12/06/2021 09:45 AM [facility] HospitalUiwwsbzi75-72-6609 Note ORIGINAL EXAMINATION: TWO XRAY VIEWS OF [...] 12/06/2021 12:06:38 AM Ordering Provider: FRIEDA HOLLAND [facility] HospitalEmzkomyu09-13-2031 Note Date of Service 12/05/2021 Subjective 81-year-old [...] roomrequired assistance which is not patient's baseline. Mogadore-Hallpike was performed in ED documented asnegative. Patient was transfer from [place] to [facility] for further cardiovascular work-up. Orthostatics performed and [...] Zara no answer, called patient's son Ang [phone] Who states that patient's mental status has [...] FRIEDA HOLLAND MD on 12/05/2021 06:41 PM [facility] HospitalVktsbgsz42-81-1231 Note ORIGINAL EXAMINATION: TWO XRAY VIEWS OF [...] Date: 12/06/2021 12:06:38 AM Ordering Provider: FRIEDA [facility]10-28-2022 Note ORIGINAL EXAMINATION: MR Brain with [...] pathology. 2. Moderate parenchymal volume loss and coso-ns-wzdxuhyf chronic microvascular white matter ischemic disease. Interpreted by: Alanna Chin MD Preliminary Report By: Alanna Chin MD Electronically signed By Alanna Chin MD Dictated Date: 12/05/2021 1:36:40 PM Prelim Date: 12/05/2021 1:40:15 PM Sign Date: 12/05/2021 1:40:15 PM Ordering Provider: ANA WILSON [facility] HospitalDbirkbxi05-87-1493 Note ORIGINAL EXAMINATION: MR Brain with and [...] pathology. 2. Moderate parenchymal volume loss and gcja-mv-fiulqcar chronic microvascular white matter ischemic disease. Interpreted by: Alanna Chin MD Preliminary Report By: Alanna Chin MD Electronically signed By Alanna Chin MD Dictated Date: 12/05/2021 1:36:40 PM Prelim Date: 12/05/2021 1:40:15 PM Sign Date: 12/05/2021 1:40:15 PM Ordering Provider: [facility]10-28-2022 Note Date 12/05/2021 Chief complaint Transition [...] Physical therapy notes on 12/04 recommending SNF. 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 Mogadore-Hallpike was performed in ED documented asnegative. Patient was transfer from [place] to [facility] for further cardiovascular work-up. Orthostatics performed and negative. On review of telemetry patient with episodes of bradycardia will decre ase atenolol. Patient ordered for MRI TTE and carotid duplex. PT/OT evaluation pending. Patient seen and examined this morning Patient does appear to have advanced dementia She does know that she is in [place] but speaks in a roundabout way about [...] FRIEDA HOLLAND MD on 12/04/2021 03:40 PM [facility] HospitalQfkkrxlk46-22-5416 Note Chief Complaint Transition Plan. 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 I Magdalena Ashley REACTOR SERVICE OPERATOR, personally performed the services described in this documentation, as described by Jose Juan CARCAMO in my presence and it is both accurate and complete. This document transcribed using voice recognition software may contain typographical errors. Digitally Signed by MAGDALENA ASHLEY on 12/04/2021 02:59 PM [facility] HospitalBgrdbmtb64-22-8686 History and physical note [facility] Hospitalist History and Physical Date of Admission: 12/03/2021 Chief complaint: Dizziness History of present illness: History is taken from talking with the patient. Patient was accepted asa transfer from [place] emergency department by my colleague. 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 Tubal ligation Family history: Mother: High blood [...] Rate18(DEC 03 21:30)16(DEC 03 14:53)20(DEC 03 14:26) PHD706(DEC 03 21:30)136(DEC 03 21:30)H 187(DEC 03 16:20) [...] Appearance (POC): Clear (12/03/21 16:12:00) Urine Specific [place] (POC): <=1.005 Abnormal (12/03/21 16:12:00) Urine Glucose [...] Patient was accepted as a transfer from [facility] emergency department by my colleague on 12/03/2021 [...] ANA WILSON MD on 12/03/2021 09:55 PM [facility] HospitalCuewxjmb09-25-5983 Note ORIGINAL EXAMINATION: CT OF THE HEAD [...] Sign Date: 12/03/2021 4:02:30 PM Ordering Provider: [facility]10-26-2022 Note ORIGINAL EXAMINATION: CT OF THE HEAD [...] Sign Date: 12/03/2021 4:02:30 PM Ordering Provider: [facility]10-26-2022 Evaluation + Plan noteExtracted from: Title:Clinical Document Author:ANA WILSON MD Date:12/03/21 [facility] Medicine Hospitalist History and Physical Date of Admission: 12/03/2021 Chief complaint: Dizziness History of present illness: History is taken from talking with the patient. Patient was accepted as a transfer from [place] emergency department by my colleague. 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 Tubal ligation Family history: Mother: High blood [...] Rate18(DEC 03 21:30)16(DEC 03 14:53)20(DEC 03 14:26) CJL172(DEC 03 21:30)136(DEC 03 21:30)H 187(DEC 03 16:20) [...] Appearance (POC): Clear (12/03/21 16:12:00) Urine Specific [place] (POC): <=1.005 Abnormal (12/03/21 16:12:00) Urine Glucose [...] Patient was accepted as a transfer from [facility] emergency department by my colleague on 12/03/2021 [...] MA Mammo Screening Bilateral w/ Fer 12/12/21 [facility] Discharge summary Author Jean Claude Harry [facility] Note Date/Time July 24, 2024 3:52 am [facility] Medical Records Department [address] [place] [address] Emergency Department Summary 07/24/24 MR#: [id number] Acct: [id number] Name: CT DALTON Rep #:[id number] : [id number] 83 From: Jean Claude Harry [...] mg PO DAILY 04/20/17 04/27/17 08:00 History trmhfjiixqvg-Xc-gavw-minerals 1 ea PO DAILY 04/20/17 U nknown [...] range of motion. 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 Neurologically she is awake and alert. [...] Right hip moderate degenerative changes. Reading [facility] [address] Right hip and pelvis x-ray, 3 views, [...] obviously lying in bed. Tylenol for pain. Eloy as needed for pain also. Print Language: Indonesian Disposition Disposition: Home, Self Care What to do if you have Problems For any increased pain, shortness of breath, bleeding, nausea or vomiting, chestpain, or any unexpected problems, contact your Primary Care Provider. Call [facility] ([phone]) or report to the closest Emergency Room. Call 911 if necessary. 07/24/24351 <Electronically signed by Jean Claude Harry MD> Cosigner Signature (if applicable): CC: Dr. Jairon Medel MD ~ Signed [facility] Work Phone: Evaluation + Plan note Future Appointments Appointment Date:05/05/2021 09:00:00 AM Scheduled Provider:ALANNA WRIGHT DO Location:[facility] Appointment Type:[facility] Evaluation + Plan note Future Appointments Appointment Date:11/06/2021 08:30:00 AM Scheduled Provider:ALANNA WRIGHT DO Location: [place] Appointment Type:PC Wellness Medicare with Labs Future Scheduled Tests Radiology* XR Humerus Minimum 2 Views Right 05/05/21 [facility] Evaluation + Plan note Future Appointments Appointment Date:01/15/2022 02:00:00 PM Scheduled Provider: Location:[facility] Appointment Type:MA Mammogram Screening Bilateral w/ Fer Appointment Date:02/25/2022 10:00:00 AM Scheduled Provider:LARRY THOMAS DO Location:[facility] Appointment Type:PC REACTOR SERVICE OPERATOR Appointment Date:03/13/2022 10:30:00 AM Scheduled Provider:ALANNA WRIGHT DO Location: [place] Appointment Type:PC OV Future Scheduled Tests Radiology* MA Mammo Screening Bilateral w/ Fer 01/15/22 [facility] Evaluation + Plan note Future Appointments Appointment Date:02/25/2022 10:00:00 AM Scheduled Provider:LARRY THOMAS DO Location:[facility] Appointment Type:PC REACTOR SERVICE OPERATOR Appointment Date:03/13/2022 10:30:00 AM Scheduled Provider:ALANNA WRIGHT DO Location:[facility] Appointment Type:PC OV Future Scheduled Tests Radiology* US Biopsy Breast Left 1st Lesion 01/22/22 [facility] Evaluation + Plan note Future Appointments Appointment Date:03/05/2022 10:00:00 AM Scheduled Provider:LARRY THOMAS DO Location:[facility] Appointment Type:PC REACTOR SERVICE OPERATOR Appointment Date:03/13/2022 10:30:00 AM Scheduled Provider:ALANNA WRIGHT DO Location: [place] Appointment Type:PC OV Appointment Date:03/23/2022 01:00:00 PM Scheduled Provider: Location:[facility] Appointment Type:US Biopsy Breast Left 1st Lesion Future Scheduled Tests Radiology* US Biopsy Breast Left 1st Lesion 03/23/22 [facility] Evaluation + Plan note Future Appointments Appointment Date:03/13/2022 10:30:00 AM Scheduled Provider:ALANNA WRIGHT DO Location:[facility] Appointment Type:PC OV Appointment Date:03/23/2022 01:00:00 PM Scheduled Provider: Location:[facility] Appointment Type:US Biopsy Breast Left 1st Lesion Appointment Date:04/16/2022 04:30:00 PM Scheduled Provider:LARRY THOMAS DO Location:[facility] Appointment Type:PC OV Future Scheduled Tests Laboratory* Hepatic Function Panel 04/13/22 Radiology* US Biopsy Breast Left 1st Lesion 03/23/22 * US Renal 03/09/22 [facility] Evaluation + Plan note Future Appointments Appointment Date:04/16/2022 04:30:00 PM Scheduled Provider:LARRY THOMAS DO Location:[facility] Appointment Type:PC OV Future Scheduled Tests Laboratory* Hepatic Function Panel 04/13/22 Radiology* US Renal 03/09/22 [facility] Evaluation + Plan note Future Appointments Appointment Date:04/15/2022 07:30:00 AM Scheduled Provider: Location:[facility] Appointment Type:US Renal Appointment Date:04/16/2022 04:30:00 PM Scheduled Provider:LARRY THOMAS DO Location:[facility] Appointment Type:PC OV Appointment Date:05/28/2022 10:00:00 AM Scheduled Provider:ANISA GOMEZ MD Location:[facility] Appointment Type:BS REACTOR SERVICE OPERATOR Future Scheduled Tests Radiology* US Renal 04/15/22 [facility] Evaluation + Plan note Future Appointments Appointment Date:04/16/2022 04:30:00 PM Scheduled Provider:LARRY THOMAS DO Location:[facility] Appointment Type:PC OV Appointment Date:05/28/2022 10:00:00 AM Scheduled Provider:ANISA GOMEZ MD Location:[facility] Appointment Type:BS REACTOR SERVICE OPERATOR [facility] Evaluation + Plan note Future Appointments Appointment Date:07/16/2022 03:30:00 PM Scheduled Provider:ANISA GOMEZ MD Location:[facility] Appointment Type:BS OV Post Op Appointment Date:09/11/2022 11:00:00 AM Scheduled Provider:LARRY THOMAS DO Location:[facility] Appointment Type:PC Wellness Medicare [facility] evaluation + Plan note Future Appointments Appointment Date:12/14/2022 10:00:00 AM Scheduled Provider: Location:[facility] Appointment Type:BD Bone Density DEXA Axial Skeleton Appointment Date:03/16/2023 10:00:00 AM Scheduled Provider:LARRY THOMAS DO Location:[facility] Appointment Type:PC OV Future Scheduled Tests Radiology* BD Bone Density DEXA Axial Skeleton 12/14/22 [facility] Tensorcomaluation + Plan note Future Appointments Appointment Date:06/15/2023 10:30:00 AM Scheduled Provider:LARRY THOMAS DO Location:[facility] Appointment Type:PC OV Diagnostic Tests Pending * Methylmalonic Acid, Serum 04/07/23 [facility] Evaluation + Plan note Future Appointments Appointment Date:06/15/2023 10:30:00 AM Scheduled Provider:LARRY THOMAS DO Location:[facility] Appointment Type:PC OV [facility] Tensorcomaluation + Plan note Future Appointments Appointment Date:12/15/2023 10:00:00 AM Scheduled Provider:LARRY THOMAS DO Location:[facility] Appointment Type:PC OV [facility] Evaluation + Plan note Future Appointments Appointment Date:12/29/2023 01:30:00 PM Scheduled Provider:LARRY THOMAS DO Location:[facility] Appointment Type:PC OV Diagnostic Tests Pending * Vitamin B12 Level 12/15/23 * Folate Level 12/15/23 Future Scheduled Tests Laboratory* Calcium Level Ionized 12/15/23 * Urine Culture 12/15/23 Radiology* XR Spine Lumbar W/Obliques 4 Views 12/15/23 [facility] Tensorcomaluation + Plan note Future Appointments Appointment Date:12/29/2023 01:30:00 PM Scheduled Provider:LARRY THOMAS DO Location:[facility] Appointment Type:PC OV Future Scheduled Tests Laboratory* Calcium Level Ionized 12/15/23 Radiology* XR Chest 2 Views (PA & Lateral) 12/19/23 * XR Spine Lumbar W/Obliques 4 Views 12/15/23 [facility] Evaluation + Plan note Future Appointments Appointment Date:12/29/2023 01:30:00 PM Scheduled Provider:LARRY THOMAS DO Location:[facility] Appointment Type:PC OV Future Scheduled Tests Laboratory* Calcium Level Ionized 12/15/23 [facility] Evaluation + Plan note Future Appointments Appointment Date:02/16/2024 09:30:00 AM Scheduled Provider:LARRY THOMAS DO Location:[facility] Appointment Type:PC OV Future Scheduled Tests Radiology* US Bladder 12/29/23 [facility] Evaluation + Plan note Future Appointments Appointment Date:02/16/2024 09:30:00 AM Scheduled Provider:LARRY THOMAS DO Location:[facility] Appointment Type:PC OV [facility] Evaluation note* Diagnosis Abnormal ultrasound of breast Other (abnormal) findings on radiological examination of breast History of left breast cancer [facility] noteNo assessment information availableWRegional Medical Center Work Phone: Hospital course Narrative No data available for this section [facility] Hospital Discharge instructions No data available for this section [facility] Hospital Discharge instructions Additional Instructions She has a superior pubic ramus fracture which is a pelvis fracture. These are not treated with surgery. They generally heal over weeks to months. She can do activity as tolerated. She may walk or be in a wheelchair or obviously lying in bed. Tylenol for pain. Eloy as needed for pain also.[facility] Work Phone: Progress note No data available for this section [facility] Reason for referral (narrative)No reason for referral information availableWRegional Medical Center Work Phone: Chief Complaint Chief Complaint Description [...] Visit Chief Complaint Admit Date ADMISSION EXAM REACTOR SERVICE OPERATOR February 24, 2024 3 :20pm [facility] February 28, 2024 5:00am ADMISSION EXAM February 29, 2024 1 1:54am [facility] March 27 5:00am LABWORK April 03, 2024 5:00am NEW CONCERN April 03, 2024 2:22pm LABWORK May 01, 2024 5:0 0am Chief Complaint Admit Date ADMISSION EXAM REACTOR SERVICE OPERATOR February 24, 2024 3 :20pm [facility] February 28, 2024 5:00am ADMISSION EXAM February 29, 2024 1 1:54am [facility] March 27 5:00am LABWORK April 03, 2024 5:00am NEW CONCERN April 03, 2024 2:22pm MONTHLY EXAM April 11, 2024 5:02 pm NEW CONCERN April 26, 2024 6:3 9pm LABWORK May 01, 2024 5:0 0am [facility] May 15, 2024 4: 00am Chief Complaint Admit Date ADMISSION EXAM REACTOR SERVICE OPERATOR February 24, 2024 3 :20pm [facility] February 28, 2024 5:00am ADMISSION EXAM February 29, 2024 1 1:54am [facility] WORK March 27 5:00am LABWORK April 03, 2024 5:00am NEW CONCERN April 03, 2024 2:22pm MONTHLY EXAM April 11, 2024 5:02 pm NEW CONCERN April 26, 2024 6:3 9pm LABWORK May 01, 2024 5:0 0am [facility] LAB WORK May 15, 2024 4: 00am LABWORK May 29, 2024 5:0 0am Chief Complaint Admit Date ADMISSION EXAM REACTOR SERVICE OPERATOR February 24, 2024 3 :20pm [facility] WORK February 28, 2024 5:00am ADMISSION EXAM February 29, 2024 1 1:54am [facility] WORK March 27 5:00am LABWORK April 03, 2024 5:00am NEW CONCERN April 03, 2024 2:22pm MONTHLY EXAM April 11, 2024 5:02 pm NEW CONCERN April 26, 2024 6:3 9pm LABWORK May 01, 2024 5:0 0am [facility] LAB WORK May 15, 2024 4: 00am [facility] LAB WORK May 24, 2024 5 :00am LABWORK May 29, 2024 5:0 0am Chief Complaint Admit Date [facility] WORK March 27 5:00am LABWORK April 03, 2024 5:00am NEW CONCERN April 03, 2024 2:22pm MONTHLY EXAM April 11, 2024 5:02 pm NEW CONCERN April 26, 2024 6:3 9pm LABWORK May 01, 2024 5:0 0am [facility] WORK May 15, 2024 4: 00am [facility] WORK May 24, 2024 5 :00am LABWORK May 29, 2024 5:0 0am [facility] WORK June 26, 2024 4:0 0am fall July 24, 2024 1:23 am Chief Complaint Admit Date [facility] WORK March 27 5:00am LABWORK April 03, 2024 5:00am NEW CONCERN April 03, 2024 2:22pm MONTHLY EXAM April 11, 2024 5:02 pm NEW CONCERN April 26, 2024 6:3 9pm LABWORK May 01, 2024 5:0 0am [facility] LAB WORK May 15, 2024 4: 00am JAIL LAB WORK May 24, 2024 5 :00am LABWORK May 29, 2024 5:0 0am [facility] WORK June 26, 2024 4:0 0am Chief Complaint Admit Date LABWORK April 03, 2024 5:00am NEW CONCERN April 03, 2024 2:22pm MONTHLY EXAM April 11, 2024 5:02 pm NEW CONCERN April 26, 2024 6:3 9pm LABWORK May 01, 2024 5:0 0am Monthly Exam May 12, 2024 2:03 pm [facility] WORK May 15, 2024 4: 00am JAIL LAB WORK May 24, 2024 5 :00am LABWORK May 29, 2024 5:0 0am JAIL LAB WORK June 26, 2024 4:0 0am fall July 24, 2024 1:23 am Chief Complaint Admit Date LABWORK April 03, 2024 5:00am NEW CONCERN April 03, 2024 2:22pm MONTHLY EXAM April 11, 2024 5:02 pm NEW CONCERN April 26, 2024 6:3 9pm LABWORK May 01, 2024 5:0 0am Monthly Exam May 12, 2024 2:03 pm [facility] WORK May 15, 2024 4: 00am New Concern May 23, 2024 5:0 2pm [facility] LAB WORK May 24, 2024 5 :00am LABWORK May 29, 2024 5:0 0am JAIL LAB WORK June 26, 2024 4:0 0am fall July 24, 2024 1:23 am Chief Complaint Admit Date NEW CONCERN April 26, 2024 6:3 9pm LABWORK May 01, 2024 5:0 0am Monthly Exam May 12, 2024 2:03 pm [facility] WORK May 15, 2024 4: 00am New Concern May 23, 2024 5:0 2pm JAIL LAB WORK May 24, 2024 5 :00am LABWORK May 29, 2024 5:0 0am JAIL LAB WORK June 26, 2024 4:0 0am MONTHLY EXAM June 27, 2024 4:00p m fallJuly 24, 2024 1:23 am Chief Complaint Admit Date LABWORK May 01, 2024 5:0 0am Monthly Exam May 12, 2024 2:03 pm [facility] WORK May 15, 2024 4: 00am New Concern May 23, 2024 5:0 2pm J[facility] LAB WORK May 24, 2024 5 :00am LABWORK May 29, 2024 5:0 0am [facility] LAB WORK June 26, 2024 4:0 0am MONTHLY EXAM June 27, 2024 4:00p m fallJuly 24, 2024 1:23 am NEW CONCERN July [...] section and content) DATE CREATED AUTHOR 03/11/2018 [facility] DATE CREATED AUTHOR AUTHOR'S ORGANIZ ATION 06/04/2022 [facility] DATE CREATED AUTHOR AUTHOR'S ORGANIZ ATION 07/09/2023 [facility] ([place]) DATE CREATED AUTHOR AUTHOR'S ORGANIZ ATION 02/24/2024 [facility] DATE CREATED AUTHOR AUTHOR'S ORGANIZ ATION 03/28/2024 [facility] DATE CREATED AUTHOR AUTHOR'S ORGANIZ ATION 09/16/2024 [facility] Care Team (unrecognized sect ion and content) Care Team Personnel Name: ALANNA WRIGHT DO Position: P4 Physician - Primary Care Member Role: Primary Care Physician Address: Address: [address] [place] [address]- [place] Name: Venkata Alegria RN Position: ED RN Member Role: ED RN Name: BLANCA ARRIETA DO Position: P4 ED Physician II Member Role: ED Physician Address: Address: [address] [facility] [facility] [place] [address]- [place] Care Team Related Persons Name: ZARA DALTON Address: Home [address] [place], [place] [id number] [place] Care Team Personnel Name: ALANNA WRIGHT DO Position: P4 Physician - Primary Care Member Role: Primary Care Physician Address: Address: [address] [place] [address]- Name: Danette Busch RN Position: RN Member Role: RN Name: INES DENNIS MD Position: ED Physician Member Role: Attending Physician Address: Address: [facility] [address] [place] [address]- [place] Care Team Related Persons Name: ZARA DALTON Address: Home [address] [place], [place] [phone] [place] Care Team Personnel Name: ALANNA WRIGHT DO Position: P4 Physician - Primary Care Member Role: Primary Care Physician Address: Address: [address] [place] [address]- [place] Care Team Related Persons Name: ZARA DALTON Address: Home [address] [place], [place] [phone] [place] Care Team Personnel Name: LARRY THOMAS DO Position: P4 Physician - Primary Care Member Role: Primary Care Physician Address: Address: [address] [place] [address]- [place] Care Team Related Persons Name: ZARA DALTON Address: Home [address] [place], [place] [phone] [place] Care Team Personnel Name: LARRY THOMAS DO Position: P4 Physician - Primary Care Member Role: Primary Care Physician Address: Address: [address] [place] [address]- [place] Care Team Related Persons Name: ZARA DALTON Address: Home [address] [place] [phone] Care Team Personnel Name: LARRY THOMAS DO Position: P4 Physician - Primary Care Member Role: Primary Care Physician Address: Address: [address] [place] [address] Care Team Related Persons Name: ZARA DALTON Address: Home [address] [place] [phone] Care Team Personnel Name: LARRY THOMAS DO Position: P4 Physician - Primary Care Member Role: Primary Care Physician Address: Address: [address] [place] [address] Care Team Related Persons Name: ZARA DALTON Address: [address] [phone] Care Team Personnel Name: LARRY THOMAS DO Position: P4 Physician - Primary Care Member Role: Primary Care Physician Address: Address: [address] [place] [address] Care Team Related Persons Name: ZARA DALTON Address: [address] [phone] Source Comments (unrecognize d section and content) In the event this informatio n is protected by the Federal Confidentiality of Alcohol and Drug Abuse Patient Records regulations: The Federal rules restrict any use of the information to criminally investigate or prosecute any alcohol or drug abuse patient.[facility]edoIn the event this information is protected by the Federal Confidentiality of Alcohol and Drug Abuse Patient Records regulations: The Federal rules restrict any use of the information to criminally investigate or prosecute any alcohol or drug abuse patient.[facility] Care Teams (unrecognized sec tion and content) [...] End: April 03, 2024 Jane Barth NP, REACTOR SERVICE OPERATOR-C Attending Provider Active Start: April 03, [...] End: April 26, 2024 Jane Barth NP, REACTOR SERVICE OPERATOR-C Attending Provider Active Start: April 26, [...] July 24, 2024 End: July 24, 2024 Account Management Assistant Relationship Specialty Start Date End Date Larry Thomas [address] [place] [id number] PCP - General Family Medicine 03/30/22 Lachelle Cervantes MD, [facility] [address] [place], [place] [phone] Physician Radiation Oncology 05/11/17 Kesha Davidson RN Specialty Honest [employer] Crew Member Oncology 07/28/17 Account Management Assistant Relationship Specialty Start Date End Date Larry Thomas DO [address] [place] [id number] PCP - General Family Medicine 03/30/22 Lachelle Cervantes MD, [address] [place], [place] [phone] Physician Radiation Oncology 05/11/17 Kesha Davidson RN Specialty Honest [employer] Crew Member Oncology 07/28/17 Team Status: Active Member Role Status Dates Dr. Warner Leos Jr., MD Family Provider Active Dr. Warner Leos Jr., MD Primary Care Provider Active Team Status: Inactive Member Role Status Dates Dr. Warner Leos Jr., MD Primary Care Provider Active Start: February 24, 2024 End: February 24, 2024 Jane Barth NP REACTOR SERVICE OPERATOR-C Attending Provider Active Start: February 24, [...] 2024 End: May 12, 2024 Jane Barth NP REACTOR SERVICE OPERATOR-C Attending Provider Active Start: May 12, 2024 End: May 12, 2024 Team Status: Inactive Member Role Status Dates Dr. Jairon Medel MD Primary Care Provider Active Start: May 23, 2024 End: May 23, 2024 Jane Barth REACTOR SERVICE OPERATOR, REACTOR SERVICE OPERATOR-C Attending Provider Active Start: May 23, 2024 End: May 23, 2024 Team Status: Active Member Role/Relationship Status Dates Dr. Jairon Medel MD Primary Care Provider Active Team Status: Inactive Member Role/Relationship Status Dates Dr. Warner Leos Jr., MD Primary Care Provider Active Start: April 26, 2024 End: April 26, 2024 Jane Barth REACTOR SERVICE OPERATOR, REACTOR SERVICE OPERATOR-C Attending Provider Active Start: April 26, [...] 2024 End: May 12, 2024 Jane Barth REACTOR SERVICE OPERATOR, REACTOR SERVICE OPERATOR-C Attending Provider Active Start: May 12, [...] 2024 End: May 23, 2024 Jane Barth REACTOR SERVICE OPERATOR, REACTOR SERVICE OPERATOR-C Attending Provider Active Start: May 23, [...] 2024 End: May 12, 2024 Jane Barth REACTOR SERVICE OPERATOR, REACTOR SERVICE OPERATOR-C Attending Provider Active Start: May 12, [...] 2024 End: May 23, 2024 Jane Barth REACTOR SERVICE OPERATOR, REACTOR SERVICE OPERATOR-C Attending Provider Active Start: May 23, [...] 2024 End: July 24, 2024 Jane Barth REACTOR SERVICE OPERATOR, REACTOR SERVICE OPERATOR-C Attending Provider Active Start: July 24, [...] BE BASED ON THE PRIMARY CLINICAL RECORDS. [employer] provides no warranty or guarantee of the accuracy or completeness of information in this document.
[2024-09-18 09:59] LABS: Hematocrit 31.9 % (37-47); Hemoglobin 9.9 g/dL (12.0-15.0); Immature Granulocytes Count 0.020 X10^3/uL (0.0-0.0); Mean Corp Hgb Conc 31.0 g/dL (32-36); Mean Corpuscular Volume 91.7 fL (81-99); Mean Platelet Vol. 10.9 fl (6.2-12.0); NRBC Flagged by Analyzer 0 % (0-5); Platelet Count 247 K/mm3 (150-450); RBC Distribution Width CV 13.6 % (11.6-14.6); RBC Distribution Width SD 45.4 fl (35.1-43.9); Red Blood Count 3.48 M/mm3 (4.2-5.4); White Blood Count 5.7 K/mm3 (4.4-11.0)
[2024-09-18 10:15] LABS: Anion Gap 11 (5-15); BUN 22 mg/dL (4-19); BUN/Creat Ratio 23.1 RATIO (10-20); Calcium,Total 9.9 mg/dL (7.6-11.0); Carbon Dioxide 23.8 mmol/L (21.0-32.0); Chloride 106 mmol/L (98-108); Glucose 86 mg/dL (70-99); Potassium 4.1 mmol/L (3.3-5.1)
== END ==
LOC: OLS.WHLCAR 05:00
PROVIDERS: PCP Internal Medicine; Visit Provider Internal Medicine
DX: G30.9 Alzheimer's disease, unspecified (principal); F02.811 Dementia in other diseases classified elsewhere, unspecified severity, with agitation; I12.9 Hypertensive chronic kidney disease with stage 1 through stage 4 chronic kidney disease, or unspecified chronic kidney disease; N18.9 Chronic kidney disease, unspecified
CPT/HCPCS: 36415; 80048; 85025

== ENCOUNTER → 2024-10-16 | Outpatient (REF) | payer MEDICARE, OTHER, SELFPAY ==
--- OUTSIDE RECORDS SUMMARY | 2024-10-16 04:38 | XMS RPT_ITS | CCD ---
Author Organization [facility] Care Team Providers Care Battery Container Finishing Hand Name Role Phone Hardik PARKER, Carla Jeter Unavailable PAULA ALANIZ Referring Unavailable PAULA ALANIZ Referring Unavailable ALANNA WRIHGT DO Primary Care Physician MICAHAR DO, DR GAO Primary Care Physician [phone] Billy PARKER MD, Dabrandenung Unavailable [phone] Stuart RN, Kesha Unavailable Unavailable Micahar [...] ROMAR DO, DR GAO Primary Care Unavailable [facility] WELLNESS COORDINATOR-SUPERVISOR FISH PROCESSING, ELDA Admitting Unavail able ESPERANZA HOOVER MD Attending Unavailable ROMAR DO, DR GAO Primary Care Unavailable ROMAR DO, DR GAO Attending Unavailable ROMAR DO, DR GAO Primary Care Unavailable ROMAR DO, DR GAO Attending Unavailable ROMAR DO, DR GAO Primary Care Unavailable ROMAR DO, DR GAO Primary Care Unavailable ROMAR DO, DR GAO Attending Unavailable Deric PARKER, Dr. Hylton Primary Care Provider Lary SUPERINTENDENT LOCAL-C, Jane Attending Provider Jairon Medel MD Attending Provider Unavailsteffany Medel MD, Dr. De La O Attending Provider Jairon Medel MD Referring Provider Unavailsteffany Leos MD, Dr. Hylton Primary Care Provider Jairon Medel MD Attending Provider Unavailsteffany Barth SUPERINTENDENT LOCAL-C, Jane Attending Provider Gianfranco PARKER, Dr. De La O Attending Provider Dr. Jairon Medel MD Primary Care Provider Dr. Jean Claude Harry MD Emergency Provider [phone] Deric PARKER, Dr. Hylton Primary Care Provider Jairon Medel MD Attending Provider Unavailsteffany Medel MD, Dr. De La O Primary Care Provider Dr. Warner Leos MD Primary Care Provider Lary SUPERINTENDENT LOCAL-C, Jane Attending Provider Jairon Medel MD Attending Provider Unavailsteffany Medel MD, Dr. De La O Attending Provider Piero PARKER, Dr. Silverio Attending Provider Deric PARKER, Dr. Hylton Primary Care Provider [phone] Lary SUPERINTENDENT LOCAL-CJane Attending Provider Deric PARKER, Dr. Hylton Primary Care Provider Gianfranco PARKER, Jairon Attending Provider Unavailsteffany Medel MD, Jairon Referring Provider Unavailsteffany Medel MD, Dr. De La O Primary Care Provider Lary SUPERINTENDENT LOCAL-CJane Attending Provider Sameer PARKER, Dr. Dumont Attending Provider Oleghe OLS, Efewongbe Attending Unavailabl e Oleghe, Efewongbe Primary Care Unavailable Oleghe OLS, Efewongbe Attending Unavailabl Warner Davila Primary Care Unavailable Oleghe OLS, Efewongbe Attending UnavailWarner Elizabeth Primary Care Unavailable Jane Barth Attending Unavailable Warner Leos Primary Care Unavailable Oleghe OLS, Efewongbe Attending Unavailabl Warner Davila Primary Care Unavailable Oleghe OLS, Efewongbe Attending Unavailabl Warner Davila Primary Care Unavailable Oleghe OLS, Efewongbe Attending Unavailabl e Oleghe, Efewongbe Primary Care Unavailable Oleghe OLS, Efewongbe Attending Unavailabl e Oleghe OLS, Efewongbe Referring Unavailabl Warner Davila Primary Care Unavailable Oleghe OLS, Efewongbe Attending Unavailabl Warner Davila Primary Care Unavailable Oleghe, Efewongbe Attending Unavailable Oleghe, Efewongbe Primary Care Unavailable Oleghe, Efewongbe Primary Care Unavailable Jane Barth Attending Unavailable Oleghe OLS, Efewongbe Attending Unavailabl Warner Davila Primary Care Unavailable Oleghe OLS, Efewongbe Attending Unavailabl e Oleghe OLS, Efewongbe Referring Unavailabl Warner Davila Primary Care Unavailable Oleghe, Efewongbe Primary Care Unavailable Jean Claude Harry Attending Unavailable Jane Barth Attending Unavailable Oleghe, Efewongbe Primary Care Unavailable Jane Barth Attending Unavailable Oleghe, Efewongbe Primary Care Unavailable Jane Barth Attending Unavailable Warner Leos Primary Care Unavailable Pooja Medelewongbe Attending Unavailable Warner Leos Primary Care Unavailable Jane Barth Attending Unavailable Warner Leos Primary Care Unavailable Oleghe, Efewongbe Primary Care Unavailable Gianfranco Efewongbe Attending Unavailable Gianfranco Efewongbe Attending Unavailable Warner Leos Primary Care Unavailable Oleghe, Efewongbe Primary Care Unavailable Jairon Hahn Attending Unavailabl e Allergies Allergy Classification Reported Allergen(s) Allergy Type Date of Onset Reaction(s) Facility (1 source) Sulfacetamide Drug Allergy 4 rash [facility] Work Phone: (10 sources) Sulfonamides (Antibiotic); Translations: [SULFA (SULFONAMIDE ANTIBIOTICS)] Propensity to adverse reactions to drug (disorder) 8 Intolerance [facility] Other [place] [facility] Medications Current Medications Medication Drug Class(es) Dates Sig (Normalized) Sig (Original) acetaminophen 500 mg oral tablet (17 sources) Start: 06-27-2014 take 1 tablet by mouth once daily as needed for pain Acetaminophen (Tylenol Extra Strength) 500 MG tablet Active 500 mg PO DAILY as needed for fever or pain April 20, 2017 12:00am alendronic acid 70 mg oral tablet (16 sources) Bisphosphonate Start: 07-24-2024 take 1 tablet [...] taking., # 12 tab(s), 1 Refill(s), Pharmacy: [facility]/pharmacy #[id number], 155, cm, 12/15/23 10:32:00 EST, [...] taking., # 12 tab(s), 1 Refill(s), [id number] 153.5, cm, 06/15/23 10:26:00 EDT, Height, kg, 06/15/23 10:26:00 EDT, Dosing Weight Start Date: 06/15/23 Stop Date: 11/30/23 Status: Ordered anastrozole 1 mg oral tablet (20 sources) Aromatase Inhibitor Start: 09-28-2023 take 1 tablet by mouth once daily in the evening anastrozole 1 mg oral tablet 1 tab(s), Oral, qPM, # 90 tab(s), 0 Refill(s), Pharmacy: [facility]/pharmacy #[id number], 153.5, cm, 06/15/23 10:26:00 EDT, Height, kg, 06/15/23 10:26:00 EDT, Dosing Weight Start Date: 09/28/23 Status: Ordered Start: 03-16-2023 take 1 tablet by charles th once daily in the evening anastrozole 1 mg oral tablet 1 tab(s), Oral, qPM, # 90 tab(s), 1 Refill(s), Pharmacy: [facility]/pharmacy #[id number], 155.2, cm, 03/16/23 9:59:00 EST, Height, kg, 03/16/23 9:59:00 EST, Dosing Weight Start Date: 03/16/23 Status: Ordered Start: 09-30-2022 take 1 tablet by charles th once daily in the evening anastrozole 1 mg oral tablet 1 tab(s), Oral, qPM, # 90 tab(s), 1 Refill(s), Pharmacy: [facility]/pharmacy #[id number], 156.5, cm, 09/11/22 11:11:00 EDT, Height, kg, 09/11/22 11:11:00 EDT, Dosing Weight Start Date: 09/30/22 Status: Ordered Start: 11-21-2021 take 1 tablet by charles th once daily in the evening anastrozole 1 mg oral tablet 1 tab(s), Oral, qPM, # 90 tab(s), 1 Refill(s), Pharmacy: [facility] STORE [id number], 154.5, cm, 11/18/21 13:32:00 EDT, Height, kg, 11/18/21 13:32:00 EDT, Dosing Weight Start Date: 11/21/21 Status: Ordered Start: 03-20-2020 End: 04-05-2021 take 1 tablet by mouth once daily anastrozole 1 mg oral tablet 1 tab(s), Oral, qDay, # 90 tab(s), 1 Refill(s), Pharmacy: [facility] STORE [id number], 155, cm, 11/04/20 8:28:00 EDT, Height, kg, 11/11/20 8:26:00 EDT, Dosing Weight Start Date: 04/17/21 Status: Ordered Start: 01-12-2018 ARIMIDEX 1 MG TABS 1 tablet daily ANASTROZOLE [id number] Vidya Babin LPN Comment on above: TAKE 1 TABLET BY CHARLES TH EVERY DAY aspirin 81 mg delayed release oral tablet (20 sources) Platelet Aggregation Inhibitor, Nonsteroidal Anti-inflammatory Drug Start: 10-05-2023 End: 04-02-2024 aspirin 81 mg oral delayed release tablet Dose : 81 mg = 1 tab(s), Oral, qAM, do not crush or chew, # 90 tab(s), 1 Refill(s), Pharmacy: [facility]/pharmacy #[id number], 153.5, cm, 06/15/23 10:26:00 EDT, Height, kg, 06/15/23 10:26:00 EDT, Dosing Weight Start Date: 10/05/23 Stop Date: 04/02/24 Status: Ordered Start: 03-05-2022 End: 05-20-2023 aspirin 81 mg oral delayed r elease tablet Dose : 81 mg = 1 tab(s), Oral, qAM, do not crush or chew, # 90 tab(s), 3 Refill(s), Pharmacy: [facility]/pharmacy #[id number], 154.3, cm, 04/16/22 16:12:00 EST, [...] qPM, # 100 tab(s), 1 Refill(s), Pharmacy: [facility]/pharmacy #[id number], 155, cm, 12/15/23 10:32:00 EST, Height, kg, 12/15/23 10:26:00 EST, Dosing Weight Start Date: 12/15/23 Stop Date: 07/02/24 Status: Ordered Quantity: 100.0 Unit: tab(s) Repeat number: 2 Start: 09-13-2023 End: 12-12-2023 atorvastatin 20 mg oral tabl et Dose : 20 mg = 1 tab(s), Oral, qPM, # 90 tab(s), 0 Refill(s), Pharmacy: [facility]/pharmacy #[id number], 153.5, cm, 06/15/23 10:26:00 EDT, Height, kg, 06/15/23 10:26:00 EDT, Dosing Weight Start Date: 09/13/23 Stop Date: 12/12/23 Status: Ordered Start: 01-29-2023 End: 07-28-2023 atorvastatin 20 mg oral tabl et Dose : 20 mg = 1 tab(s), Oral, qPM, # 90 tab(s), 1 Refill(s), Pharmacy: [facility]/pharmacy #[id number], 156.5, cm, 09/11/22 11:11:00 EDT, Height, kg, 09/11/22 11:11:00 EDT, Dosing Weight Start Date: 01/29/23 Stop Date: 07/28/23 Status: Ordered Start: 03-09-2022 End: 11-21-2022 atorvastatin 20 mg oral tabl et Dose : 20 mg = 1 tab(s), Oral, qPM, # 90 tab(s), 1 Refill(s), [id number], 154.3, cm, 04/16/22 16:12:00 EST, Height, kg, 04/16/22 16:12:00 EST, Dosing Weight Start Date: 05/25/22 Stop Date: 11/21/22 Status: Ordered Start: 08-22-2021 take 0.5 tablet by m outh once daily atorvastatin 20 mg oral tablet 0.5 tab(s), Oral, qDay, # 45 tab(s), 1 Refill(s), Pharmacy: [facility] STORE 48653, 155, cm, 05/05/21 8:51:00 EDT, Height, kg, 05/05/21 8:51:00 EDT, Dosing Weight Start Date: 08/22/21 Status: Ordered Start: 11-06-2020 take 0.5 tablet by m outh once daily atorvastatin 20 mg oral tablet See Instructions, TAKE 1/2 TABLET EVERY DAY, # 45 tab(s), 1 Refill(s), [id number], 155, cm, 11/04/20 8:28:00 EDT, Height, kg, 11/04/20 8:28:00 EDT, Dosing Weight Start Date: 11/06/20 Status: Ordered Start: 04-20-2017 take 2 tablets by mo [facility] at bedtime Atorvastatin 10 MG tablet Active 20 mg PO AT BEDTIME April 20, 2017 12:00am Start: 10-27-2013 [facility] Atorvastatin 10 MG tablet Active 10 mg PO AT BEDTIME April 20, 2017 12:00am Comment on above: Take 10 mg by mouth once daily. busPIRone hydrochloride 5 mg oral tablet (6 sources) Start: 07-24-2024 take 1 tablet by mouth twice daily Buspirone 5 mg tablet Active 5 mg PO TWICE A DAY July 24, 2024 12:00am calcium carbonate 1500 mg / cholecalciferol 800 unt oral tablet (11 sources) Vitamin D Start: 04-20-2017 Calcium Carbonate-Vitamin [...] qAM, # 90 cap(s), 0 Refill(s), [id number], 156.2, cm, 07/01/22 6:28:00 EDT, Height, kg, 07/01/22 6:28:00 EDT, Dosing Weight Start Date: 08/10/22 Status: Ordered Start: 12-07-2016 take 1 capsule by [facility] once daily in the morning celecoxib 100 mg oral capsule 1 cap(s), Oral, qAM, # 90 cap(s), 1 Refill(s), Pharmacy: [email or web address] ST[facility] 340[facility], 154.3, cm, 04/16/22 16:12:00 EST, Height, kg, 04/16/22 16:12:00 EST, Dosing Weight Start Date: 05/21/22 Status: Ordered Start: 10-27-2013 CELEBREX 100 M G CAPS 1-2 capsules weekly as needed CELECOXIB [id number] Vidya Babin LPN Comment on above: Take 100 mg by mouth once daily. ciclopirox 80 mg/ml topical solution (6 sources) Start: 03-05-2022 End: 01-06-2024 ciclopirox 8% topical solution Apply 1 angelica, Topical, Daily, apply to affected toenails and surrounding area once daily, remove with alcohol every 7 days prior to reapplication, Apply to: toenails, X 48 week(s), # 6.6 mL, 1 Refill(s), Pharmacy: [id number], 154.3, cm, 03/05/22 9:44:00 EST, Height, 75.6 Start Date: 03/05/22 Stop Date: 01/06/24 Status: Ordered Clobetasol (3 sources) Corticosteroid Start: 01-20-2021 clobetasol 0.05% topical ointment See Instructions, APPLY TO AFFECTED AREA TWICE A DAY, # 15 gram(s), 1 Refill(s), Pharmacy: [email or web address] STORE 34484, 155, cm, 11/04/20 8:28:00 EDT, Height, 81.2, kg, 11/11/20 8:26:00 EDT, Dosing Weight Start Date: 01/20/21 Status: Ordered Start: 07-30-2020 Temovate 0.05% topical ointment Apply 1 angelica, Topical, BID, # 15 gram(s), 0 Refill(s), [id number], Ointment, 155, cm, 07/23/20 8:15:00 EDT, [...] qHS, # 90 tab(s), 1 Refill(s), [id number], 156.5, cm, 09/11/22 11:11:00 EDT, Height, [...] qHS, # 90 tab(s), 1 Refill(s), Pharmacy: [facility] ST[facility], 155, cm, 11/04/20 8:28:00 EDT, Height, kg, [...] Status: Ordered escitalopram 10 mg oral tablet (6 sources) Serotonin Reuptake Inhibitor Start: 07-24-2024 take 1 tablet by mouth once daily Escitalopram Oxalate 10 mg tablet Active 10 mg PO DAILY July 24, 2024 12:00am ferrous sulfate 325 mg oral tablet (12 sources) Start: 07-24-2024 Ferrous Sulfat e 325 mg (65 mg iron) tablet Active 325 mg PO MOWEFR July 24, 2024 12:00am Start: 12-19-2023 End: 03-18-2024 ferrous sulfate 325 mg (65 m g elemental iron) oral tablet Dose : 325 mg = 1 tab(s), Oral, Mon/Wed/Wed, may take with food to minimize abdominal discomfort, # 39 tab(s), 0 Refill(s), [id number], 155, cm, 12/15/23 10:32:00 EST, Height, kg, 12/15/23 10:26:00 EST, Dosing Weight Start Date: 12/19/23 Stop Date: 03/18/24 Status: Ordered Quantity: 39.0 Unit: tab(s) Repeat number: 1 furosemide 20 mg oral tablet (6 sources) Loop Diuretic Start: 07-24-2024 take 1 tablet by mouth once daily Furosemide (Lasix) 20 mg tablet Active 20 mg PO DAILY July 24, 2024 12:00am Lidocaine (2 sources) Antiarrhythmic, Amide Local Anesthetic Start: 07-23-2020 lidocaine 4% topical cream Apply 1 angelica, Topical, TID, # 5 gram(s), 0 Refill(s), Pharmacy: [facility]/pharmacy #[id number], Cream, 155, cm, 07/23/20 8:15:00 EDT, Height, 85.2, kg, 07/23/20 8:15:00 EDT, Dosing Weight Start Date: 07/23/20 Status: Ordered lisinopril 20 mg oral tablet (14 sources) Angiotensin Converting Enzyme Inhibitor Start: 03-16-2023 take 1 tablet by mouth once daily in the morning lisinopril 20 mg oral tablet 1 tab(s), Oral, qAM, # 90 tab(s), 1 Refill(s), [id number], 155.2, cm, 03/16/23 9:59:00 EST, Height, kg, 03/16/23 9:59:00 EST, Dosing Weight Start Date: 03/16/23 Status: Ordered Start: 10-15-2022 take 1 tablet by charles th once daily in the morning lisinopril 20 mg oral tablet 1 tab(s), Oral, qAM, # 90 tab(s), 1 Refill(s), [id number], 156.5, cm, 09/11/22 11:11:00 EDT, Height, kg, 09/11/22 11:11:00 EDT, Dosing Weight Start Date: 10/15/22 Status: Ordered Start: 04-13-2022 take 1 tablet by charles th once daily in the morning lisinopril 20 mg oral tablet 1 tab(s), Oral, qAM, # 90 tab(s), 1 Refill(s), [id number], 154.3, cm, 03/17/22 9:37:00 EST, Height, kg, 03/17/22 9:37:00 EST, Dosing Weight Start Date: 04/13/22 Status: Ordered Start: 09-02-2021 take 1 tablet by charles th once daily lisinopril 20 mg oral tablet 1 tab(s), Oral, qDay, # 90 tab(s), 1 Refill(s), Pharmacy: [id number], 155, cm, 05/05/21 8:51:00 EDT, Height, kg, 05/05/21 8:51:00 EDT, Dosing Weight Start Date: 09/02/21 Status: Ordered Start: 10-22-2020 take 1 tablet by charles th once daily lisinopril 20 mg oral tablet See Instructions, TAKE 1 TABLET BY MOUTH EVERY DAY, # 90 tab(s), 1 Refill(s), Pharmacy: [facility] STORE 94469, 155, cm, 07/23/20 8:15:00 EDT, Height, kg, [...] mg extended release oral capsule (20 sources) L-sneszj-X-asparta te Receptor Antagonist Start: 07-24-2024 take 1 [...] qAM, # 90 tab(s), 1 Refill(s), [id number], 156.5, cm, 09/11/22 11:11:00 EDT, Height, kg, 09/11/22 11:11:00 EDT, Dosing Weight Start Date: 01/29/23 Status: Ordered Start: 05-25-2022 take 1 tablet by charles th once daily in the morning memantine 5 mg oral tablet 1 tab(s), Oral, qAM, # 90 tab(s), 1 Refill(s), Pharmacy: [facility]/pharmacy #[id number], 154.3, cm, 04/16/22 16:12:00 EST, Height, kg, 04/16/22 16:12:00 EST, Dosing Weight Start Date: 05/25/22 Status: Ordered Start: 07-14-2021 take 1 tablet by charles th once daily memantine 5 mg oral tablet 1 tab(s), Oral, qDay, # 90 tab(s), 1 Refill(s), Pharmacy: [email or web address] ST[facility] 16013, 155, cm, 05/05/21 8:51:00 EDT, Height, kg, 05/05/21 8:51:00 EDT, Dosing Weight Start Date: 07/14/21 Status: Ordered Start: 04-15-2021 take 1 tablet by charles once daily memantine 5 mg oral tablet 1 tab(s), Oral, qDay, # 90 tab(s), 0 Refill(s), Pharmacy: [email or web address] STORE 80517, 155, cm, 11/04/20 8:28:00 EDT, Height, kg, 11/11/20 8:26:00 EDT, Dosing Weight Start Date: 04/15/21 Status: Ordered Start: 10-17-2020 take 1 tablet by charles once daily memantine 5 mg oral tablet See Instructions, TAKE 1 TABLET BY MOUTH EVERY DAY, # 90 tab(s), 0 Refill(s), Pharmacy: [email or web address] ST[facility] 95463, 155, cm, 07/23/20 8:15:00 EDT, Height, kg, [...] 0 Refill(s) Start Date: 03/17/22 Status: Ordered Rtlckpvlgpzx-Jx-Rwne-Mineral s (Multiple Vitamins For Women) 1 EACH tablet (11 sources) Start: 04-20-2017 take 1 tablet by mouth once daily Iolqkyxowvui-Zj-Nujr-Minerals (Multiple Vitamins For Women) 1 EACH tablet Active 1 NMA PO DAILY April 20, 2017 12:00am mupirocin 0.02 mg/mg topical ointment (2 sources) RNA Synthet ase Inhibit or Antibac terial Start: 06-19-2022 mupirocin 2% topical ointmen t Apply 1 angelica, Topical, BID, Bilateral intranasal application twice daily x 5 days pre-surgery., Apply to: nostril, each, # 22 gram(s), 0 Refill(s), Pharmacy: [facility]/pharmacy #[id number], Ointment, 154.3, cm, 05/28/22 7:35:00 EDT, Height, 77 Start Date: 06/19/22 Status: Ordered nystatin [id number] unt/ml topic al cream (7 sources) Polyene Antifun gal Start: 07-24-2024 Nystatin 100,000 unit/gram cream Active 1 NMA TOPICAL TWICE DAILY NEEDED as needed for groin July 24, 2024 12:00am Start: 09-11-2022 End: 11-10-2022 nystatin 100,000 units/g top ical cream Apply 1 angelica, Topical, BID, PRN Rash, Apply to the affected area twice daily until healing complete., # 30 gram(s), 1 Refill(s), Pharmacy: [facility]/pharmacy #[id number], Cream, 156.5, cm, 09/11/22 11:11:00 [...] Date: 01/24/24 Status: Ordered polyethylene glycol 3350 92179 mg powder for oral solution (7 sources) Osmotic Laxative Start: 07-24-2024 Polyethylene Glycol [...] day(s), # 6 tab(s), 0 Refill(s), Pharmacy: [facility]/pharmacy #[id number], 155, cm, 12/15/23 10:32:00 EST, Height, 68.6, kg, 12/15/23 10:26:00 EST, Dosing Weight Start Date: 12/15/23 Stop Date: 12/18/23 Status: Ordered divalproex sodium 125 mg delayed release oral tablet (10 sources) Mood Stabilizer, Anti-epileptic Agent Start: 07-24-2024 [...] / HYDROcodone bitartrate 5 mg oral tablet (20 sources) Opioid Agonist Start: 04-27-2017 End: 08-25-2024 [...] on above: Take 1,000 mg by charles th twice daily. Atenolol (17 sources) beta-Adrenergic Aniyah Start: 12-06-2021 End: 12-06-2021 atenolol Start: 12/06/21 9:00:00 EDT, Dose = 50 mg, = 1 tab(s), Oral, 0, 12/04/21 8:45:00 EDT Start Date: 12/06/21 Stop Date: 12/06/21 Status: Completed Start: 02-26-2017 take 2 tablets by mo [facility] once daily atenolol (TENORMIN) 50 mg [...] TABS 1 tablet daily CALCIUM CARB-CHOLECALCIFEROL TABS [id number] Vidya Babin ASSOCIATE DIRECTOR calcium carbonate 1500 mg oral tablet (12 sources) Start: 023 End: 024 calcium (as carbonate) 600 mg oral tablet Dose : 600 mg = 1 tab(s), Oral, qDay, # 90 tab(s), 3 Refill(s), Pharmacy: [facility]/pharmacy #[id number], 156.5, cm, 09/11/22 11:11:00 EDT, [...] on above: Take 3 tablets by mo [facility] once daily. cyclobenzaprine hydrochloride 10 mg oral tablet (16 sources) Muscle Relaxant Start: 014 End: 025 take 1 tablet by mouth once daily [...] on above: Take 1 capsule by mo uth once daily. gabapentin 300 mg oral capsule (16 sources) Anti-epileptic Agent Start: 017 End: take [...] qAM, # 90 tab(s), 1 Refill(s), Pharmacy: [email or web address] 31868, 154.5, cm, 11/18/21 13:32:00 EDT, Height, kg, 11/18/21 13:32:00 EDT, Dosing Weight Start Date: 11/21/21 Status: Ordered Comment on above: Take 25 mg by mouth once daily. hydroCHLOROthiazide 25 mg oral tablet (16 sources) Thiazide Diuretic Start: 016 End: 025 take 1 tablet by mouth once daily Hydrochlorothiazide 25 MG tablet Discontinued 25 mg PO DAILY April 20, 2017 12:00am July 24, 2024 1:38am Comment on above: Take 25 mg by mouth once daily. MULTIPLE VITAMIN (1 source) Start: 014 MULTIVITAMINS CAPS 1 capsule daily MULTIPLE VITAMIN [id number] Jane Troy multivitamin tablet (2 sources) take [...] without behavioral disturbance] Onset: 02-10-2024 03-16-2023 Chronic Disorders of lipid metabolism (20 sources) Mixed hyperlipidemia 08-18-2019 Chronic E Codes: Fall (6 sources) Fall; Translations: [Unspecified fall, initial encounter] [...] of lumbar spine 12-29-2023 Episodic Other fractures (6 sources) Closed fracture of pelvis; Translations: [Fracture [...] of mental health and substance abuse codes (6 sources) H/O: dementia; Translations: [Personal history of [...] Classification Problem Date Documented Da te Episodic/Chronic Diabetes mellitus without complication (20 sources) Impaired glucose tolerance; Translations: [Hyperglycemia] Onset: 11-01-2014 11-01-2014 Episodic Residual codes; unclassified (1 source) Edema, unspecified; Translations: [Edema, unspecified] Onset: 05-31-2024 Episodic Unclassified (1 source) Problem Results Test Name Value Interpretation Reference Range Facility Absolute lymphocyte countOrd ered By: Jairon Medel on 09-18-2024 Lymphocytes Auto (Unsp spec) [#/Vol] 1.93 10*3/uL 0.83-4.51 [facility] Absolute neutrophil countOrd ered By: Jairon Medel on 09-18-2024 Neutrophils (Bld) [#/Vol] 3.1 10*3/uL 2.0-7.7 [facility] Anion gap in Serum or Plasma Ordered By: Jairon Medel on 09-18-2024 Anion gap [Moles/Vol] 11 mmol/L 5-15 [facility] Automated lymphocyte count a s percentage of total leukocytesOrdered By: Jairon Medel on 09-18-2024 Lymphocytes/100 WBC Auto (Unsp spec) 34.0 % 19-41 [facility] BUN/creatinine ratioOrdered By: Jairon Medel on 09-18-2024 Urea nitrogen/Creatinine [Mass ratio] 23.1 mg/mg High 10-20 [facility] Basophil percentageOrdered B y: Jairon Medel on 09-18-2024 Basophils/100 WBC (Bld) 0.7 % 0-1 [facility] Carbon dioxide, total [Moles /volume] in Central venous bloodOrdered By: Jairon Medel on 09-18-2024 CO2 [Moles/Vol] 23.8 mmol/L 21.0-32.0 [facility] Chloride assayOrdered By: Pooja Medel on 09-18-2024 Chloride [Moles/Vol] 106 mmol/L 98-108 [facility] Eosinophil percentageOrdered By: Jairon Medel on 09-18-2024 Eosinophils/100 WBC (Bld) 2.1 % 0-5 [facility] Erythrocyte distribution wid th ratioOrdered By: Jairon Medel on 09-18-2024 Erythrocyte distribution width (RBC) [Ratio] 13.6 % 11.6-14.6 [facility] Erythrocyte distribution wid th standard deviationOrdered By: Jairon Medel on 09-18-2024 Erythrocyte distribution width (RBC) [Ratio] 45.4 fl High 35.1-43.9 [facility] Glomerular filtration rate ( GFR) estimation/1.73 sq m using serum, plasma, or whole bOrdered By: Carrillomelrose parkmakenzie Medel on 09-18-2024 GFR/1.73 sq M.predicted among non-blacks MDRD (S/P/Bld) [Vol rate/Area] 59 mL/min/{1.73_m2} Low >60 [facility] Comment on above: mL/min/1.73m2 CKD-EP I Creatinine Equation (2020) Hematocrit Auto (Bld) [Volum e fraction]Ordered By: Jairon Medel on 09-18-2024 Hematocrit (Bld) [Volume fraction] 31.9 % Low 37-47 [facility] Hemoglobin measurementOrdere d By: Jairon Medel on 09-18-2024 Hemoglobin (Bld) [Mass/Vol] 9.9 g/dL Low 12.0-15.0 [facility] Immature granulocytes/100 WB C Auto (Bld)Ordered By: Jairon Medel on 09-18-2024 Immature granulocytes/100 WBC (Bld) 0.400 % 0.0-0.9 [facility] Comment on above: IG% - Immature Granu locytes (promyelocytes, myelocytes and metamyelocytes) > 1% indicates that a LEFT SHIFT is Present. MCV (mean corpuscular volume ) determinationOrdered By: Jairon Medel on 09-18-2024 MCV (RBC) [Entitic vol] 91.7 fL 81-99 [facility] Mean corpuscular hemoglobin (MCH) determinationOrdered By: Jairon Medel on 09-18-2024 MCH (RBC) [Entitic mass] 28.4 pg 27.0-32.0 [facility] Mean corpuscular hemoglobin concentration (MCHC) determinationOrdered By: Jairon Medel on 09-18-2024 MCHC (RBC) [Mass/Vol] 31.0 g/dL Low 32-36 [facility] Mean platelet volume determi nationOrdered By: Jairon Medel on 09-18-2024 Platelet mean volume (Bld) [Entitic vol] 10.9 fL 6.2-12.0 [facility] Monocyte percentageOrdered B y: Jairon Medel on 09-18-2024 Monocytes/100 WBC (Bld) 7.9 % 0-10 [facility] Neutrophil percentageOrdered By: Jairon Medel on 09-18-2024 Neutrophils/100 WBC (Bld) 54.9 % 47-70 [facility] Nucleated red blood cell per centageOrdered By: Jairon Medel on 09-18-2024 Nucleated RBC/100 WBC (Bld) [Ratio] 0 % 0-5 [facility] Platelet countOrdered By: Pooja sreekanthbraden Medel on 09-18-2024 Platelets (Bld) [#/Vol] 247 10*3/uL 150-450 [facility] Potassium measurement (mass/ volume)Ordered By: Jairon Medel on 09-18-2024 Potassium (Unsp spec) [Mass/Vol] 4.1 mmol/L 3.3-5.1 [facility] RBC Auto (Bld) [#/Vol]Ordere d By: Jairon Medel on 09-18-2024 RBC (Bld) [#/Vol] 3.48 10*6/uL Low 4.2-5.4 [facility] Serum creatinine measurement (mass/volume)Ordered By: Jairon Medel on 09-18-2024 Creatinine [Mass/Vol] 0.94 mg/dL 0.70-1.20 [facility] Serum glucose measurement (m ass/volume)Ordered By: Jairon Medel on 09-18-2024 Glucose [Mass/Vol] 86 mg/dL 70-99 [facility] Serum or plasma calcium krissy urement (mass/volume)Ordered By: Jairon Medel on 09-18-2024 Calcium [Mass/Vol] 9.9 mg/dL 7.6-11.0 [facility] Serum or plasma urea nitroge n measurement (mass/volume)Ordered By: Jairon Medel on 09-18-2024 Urea nitrogen [Mass/Vol] 22 mg/dL High 4-19 [facility] Sodium levelOrdered By: Carrillo Medel on 09-18-2024 Sodium [Moles/Vol] 141 mmol/L 133-145 [facility] White blood cell (WBC) count Ordered By: Jairon Medel on 09-18-2024 WBC (Bld) [#/Vol] 5.7 10*3/uL 4.4-11.0 [facility] Bilirubin directOrdered By: Jairon Medel on 08-28-2024 Bilirubin.direct [Mass/Vol] 0.12 mg/dL 0.00-0.30 [facility] Bilirubin, totalOrdered By: Jairon Medel on 08-28-2024 Bilirubin [Mass/Vol] 0.23 mg/dL 0.00-1.30 [facility] Calculated very low density lipoprotein (VLDL) cholesterol measurementOrdered By: Jairon Medel on 08-28-2024 Calculated very low density lipoprotein (VLDL) cholesterol measurement 23 mg/dL 5-40 [facility] LDL calc ser/plasOrdered By: Jairon Medel on 08-28-2024 Cholesterol in LDL [Mass/Vol] 46 mg/dL [facility] Comment on above: Kjpfpqzvys=567-822 m g/dL & Higher Ftgl=315 mg/dL or greater Laboratory - Chemistry and C hemistry - challengeOrdered By: Jairon Medel on 08-28-2024 AST [Catalytic activity/Vol] 15 U/L <32 [facility] Screening total cholesterol/ high density lipoprotein (HDL) cholesterol ratioOrdered By: Jairon Medel on 08-28-2024 Cholesterol.total/Luisa sterol in HDL [Mass ratio] 2.33 {ratio} [facility] Serum globulin measurementOr dered By: Jairon Medel on 08-28-2024 Globulin (S) [Mass/Vol] 2.2 g/dL 2.2-4.2 [facility] Serum or plasma alanine crane otransferase (ALT) measurementOrdered By: Jairon Medel on 08-28-2024 ALT [Catalytic activity/Vol] 9 U/L <35 [facility] Serum or plasma albumin krissy urement (mass/volume)Ordered By: Carrillomelrose parkmakenzie Medel on 08-28-2024 Albumin [Mass/Vol] 3.7 g/dL 3.4-4.8 [facility] Serum or plasma alkaline luis sphatase measurementOrdered By: Jairon Medel 08-28-2024 ALP [Catalytic activity/Vol] 73 U/L 35-104 [facility] Serum or plasma cholesterol in HDL measurement (mass/volume)Ordered By: Jairon Medel on 08-28-2024 Cholesterol in HDL [Mass/Vol] 52 mg/dL >40 [facility] Comment on above: National Cholesterol Education Program (NCEP) guidelines:<40 mg/dL: Low HDL-cholesterol (major risk factor for CHD)>= 60 mg/dL: High HDL-cholesterol (negative risk factor for CHD)HDL-cholesterol is affected by a number of factors, e.g. smoking, exercise, hormones, sex and age. Serum or plasma cholesterol measurement (mass/volume)Ordered By: Jairon Medel on 08-28-2024 Cholesterol [Mass/Vol] 121 mg/dL <201 [facility] Comment on above: Cholesterol level, D esirable <200 mg/dLBorderline high cholesterol 200-239 mg/dLHigh cholesterol >=240 mg/dLRecommendations of the NCEP Adult Treatment Panel for the following risk-cutoff thresholds for the [place] population. Serum or plasma valproate me asurement (mass/volume)Ordered By: Jairon Medel on 08-28-2024 Valproate [Mass/Vol] 14 ug/mL Low 50-100 [facility] Comment on above: Valproic Acid concen trations >100 ug/mL are potentially toxic. Total proteinOrdered By: Masoud Medel on 08-28-2024 Protein [Mass/Vol] 5.9 g/dL 5.9-8.4 [facility] Triglycerides measurementOrd ered By: Jairon Medel on 08-28-2024 Triglyceride [Mass/Vol] 115 mg/dL <199 [facility] Comment on above: The drugs N-Acetylcy steine and Metamizole may falsely depress this assay. Normal range: <150 mg/dLBorderline High: 150-199 mg/dLHigh: 200-499 mg/dLVery High: >500 mg/dL Absolute lymphocyte countOrd ered By: Jairon Medel on 08-21-2024 Lymphocytes Auto (Unsp spec) [#/Vol] 1.69 10*3/uL 0.83-4.51 [facility] Absolute neutrophil countOrd ered By: Jairon Medel on 08-21-2024 Neutrophils (Bld) [#/Vol] 4.3 10*3/uL 2.0-7.7 [facility] Anion gap in Serum or Plasma Ordered By: Jairon Medel on 08-21-2024 Anion gap [Moles/Vol] 10 mmol/L 5-15 [facility] Automated lymphocyte count a s percentage of total leukocytesOrdered By: Jairon Medel on 08-21-2024 Lymphocytes/100 WBC Auto (Unsp spec) 24.9 % 19-41 [facility] BUN/creatinine ratioOrdered By: Jairon Medel on 08-21-2024 Urea nitrogen/Creatinine [Mass ratio] 21.2 mg/mg High 10-20 [facility] Basophil percentageOrdered B y: Jairon Medel on 08-21-2024 Basophils/100 WBC (Bld) 0.7 % 0-1 [facility] Carbon dioxide, total [Moles /volume] in Central venous bloodOrdered By: Jairon Medel on 08-21-2024 CO2 [Moles/Vol] 24.4 mmol/L 21.0-32.0 [facility] Chloride assayOrdered By: Pooja pfeiffer Gianfranco on 08-21-2024 Chloride [Moles/Vol] 108 mmol/L 98-108 [facility] Eosinophil percentageOrdered By: Jairon Medel on 08-21-2024 Eosinophils/100 WBC (Bld) 1.9 % 0-5 [facility] Erythrocyte distribution wid th ratioOrdered By: sreekanthmelrose parkmakenzie Medel on 08-21-2024 Erythrocyte distribution width (RBC) [Ratio] 14.2 % 11.6-14.6 [facility] Erythrocyte distribution wid th standard deviationOrdered By: Jairon Medel on 08-21-2024 Erythrocyte distribution width (RBC) [Ratio] 47.2 fl High 35.1-43.9 [facility] Glomerular filtration rate ( GFR) estimation/1.73 sq m using serum, plasma, or whole bOrdered By: sreekanthmelrose parkmakenzie Medel on 08-21-2024 GFR/1.73 sq M.predicted among non-blacks MDRD (S/P/Bld) [Vol rate/Area] 67 mL/min/{1.73_m2} >60 [facility] Comment on above: mL/min/1.73m2 CKD-EP I Creatinine Equation (2020) Hematocrit Auto (Bld) [Volum e fraction]Ordered By: Jairon Medel on 08-21-2024 Hematocrit (Bld) [Volume fraction] 31.9 % Low 37-47 [facility] Hemoglobin measurementOrdere d By: Jairon Medel on 08-21-2024 Hemoglobin (Bld) [Mass/Vol] 10.2 g/dL Low 12.0-15.0 [facility] Immature granulocytes/100 WB C Auto (Bld)Ordered By: Jairon Medel on 08-21-2024 Immature granulocytes/100 WBC (Bld) 0.100 % 0.0-0.9 [facility] Comment on above: IG% - Immature Granu locytes (promyelocytes, myelocytes and metamyelocytes) > 1% indicates that a LEFT SHIFT is Present. MCV (mean corpuscular volume ) determinationOrdered By: Jairon Medel 08-21-2024 MCV (RBC) [Entitic vol] 91.7 fL 81-99 [facility] Mean corpuscular hemoglobin (MCH) determinationOrdered By: Jairon Medel on 08-21-2024 MCH (RBC) [Entitic mass] 29.3 pg 27.0-32.0 [facility] Mean corpuscular hemoglobin concentration (MCHC) determinationOrdered By: Jairon Medel on 08-21-2024 MCHC (RBC) [Mass/Vol] 32.0 g/dL 32-36 [facility] Mean platelet volume determi nationOrdered By: Jairno Medel on 08-21-2024 Platelet mean volume (Bld) [Entitic vol] 10.6 fL 6.2-12.0 [facility] Monocyte percentageOrdered B y: Jairon Medel on 08-21-2024 Monocytes/100 WBC (Bld) 9.0 % 0-10 [facility] Neutrophil percentageOrdered By: Jairon Medel on 08-21-2024 Neutrophils/100 WBC (Bld) 63.4 % 47-70 [facility] Nucleated red blood cell per centageOrdered By: Jairon Medel on 08-21-2024 Nucleated RBC/100 WBC (Bld) [Ratio] 0 % 0-5 [facility] Platelet countOrdered By: Pooja Medel on 08-21-2024 Platelets (Bld) [#/Vol] 232 10*3/uL 150-450 [facility] Potassium measurement (mass/ volume)Ordered By: Jairon Medel on 08-21-2024 Potassium (Unsp spec) [Mass/Vol] 4.4 mmol/L 3.3-5.1 [facility] RBC Auto (Bld) [#/Vol]Ordere d By: Jairon Medel on 08-21-2024 RBC (Bld) [#/Vol] 3.48 10*6/uL Low 4.2-5.4 [facility] Serum creatinine measurement (mass/volume)Ordered By: Jairon Medel on 08-21-2024 Creatinine [Mass/Vol] 0.85 mg/dL 0.70-1.20 [facility] Serum glucose measurement (m ass/volume)Ordered By: Jairon Medel on 08-21-2024 Glucose [Mass/Vol] 95 mg/dL 70-99 [facility] Serum or plasma calcium krissy urement (mass/volume)Ordered By: Goldiemakenzie Torojenifersophia on 08-21-2024 Calcium [Mass/Vol] 9.4 mg/dL 7.6-11.0 [facility] Serum or plasma urea nitroge n measurement (mass/volume)Ordered By: Poojamargarette Medel on 08-21-2024 Urea nitrogen [Mass/Vol] 18 mg/dL 4-19 [facility] Sodium levelOrdered By: sreekanth feliciano Cortezjenifersophia on 08-21-2024 Sodium [Moles/Vol] 142 mmol/L 133-145 [facility] White blood cell (WBC) count Ordered By: Poojasreekanthmahadmakenzie Torojenifersophia on 08-21-2024 WBC (Bld) [#/Vol] 6.8 10*3/uL 4.4-11.0 [facility] Emergency Department Summary on 07-24-2024 Emergency Department Summary [facility] Medical Records Department [address] [place] [address] Emergency Department Summary 07/24/24 MR#: [id number] Acct: [id number] Name: CT DALTON Rep #: [id number] : 1940 83 From: Jean Claude Harry [...] PO DAILY 04/20/17 04/27/17 0 8:00 History psuteaubjzqp-Cy-zrzl-m inerals 1 ea PO DAILY 04/20/17 Unknown [...] range of motion. 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 Neurologically she is awake and alert. She answers questions she does have dementia and some confusion. She does follow commands. Const Vital Signs: 07/24/24 01:24 07/24/24 01:24 Temperature 98 F Temperature Source Oral Pulse Rate 53 L Respirator (more content not included)... Normal [facility] HIP, UNI W/ Pelvis 2-3 Views on 07-24-2024 HIP, UNI W/ Pelvis 2-3 Views [facility] Imaging Services [address] [place], [place] [id number] HIP, UNI W/ Pelvis 2-3 Views MR#: [id number] Acct: [id number] Name: CT DALTON Rep #: [id number] : 1940 F 83 From: Lauri mason MD PCP: Dr. Jairon Medel MD Status: REG ER Study: HIP, UNI W/ Pelvis 2-3 Views Date of Exam: Exam# [id number] Ordering Dr: Jean Claude Harry MD PROCEDURE: [...] Right hip moderate degenerative changes. Reading Location: [place] [address] CC: Dr. Jairon Medel MD; Dr. Jean Claude Harry MD Line Patrolman: Signed Normal [facility] Absolute lymphocyte countOrd ered By: Jairon Medel on 06-26-2024 Lymphocytes Auto (Unsp spec) [#/Vol] 2.05 10*3/uL 0.83-4.51 [facility] Absolute neutrophil countOrd ered By: Jairon Medel on 06-26-2024 Neutrophils (Bld) [#/Vol] 3.9 10*3/uL 2.0-7.7 [facility] Anion gap in Serum or Plasma Ordered By: Jairon Medel on 06-26-2024 Anion gap [Moles/Vol] 9 mmol/L 5-15 [facility] Automated lymphocyte count a s percentage of total leukocytesOrdered By: Jairon Medel on 06-26-2024 Lymphocytes/100 WBC Auto (Unsp spec) 30.5 % - [facility] BUN/creatinine ratioOrdered By: Jairon Medel on 06-26-2024 Urea nitrogen/Creatinine [Mass ratio] 20.9 mg/mg High 10-20 [facility] Basophil percentageOrdered B y: Jairon Medel on 06-26-2024 Basophils/100 WBC (Bld) 0.4 % 0-1 [facility] Carbon dioxide, total [Moles /volume] in Central venous bloodOrdered By: Jairon Medel on 06-26-2024 CO2 [Moles/Vol] 23.5 mmol/L 21.0-32.0 [facility] Chloride assayOrdered By: Pooja Medel on 06-26-2024 Chloride [Moles/Vol] 107 mmol/L 98-108 [facility] Eosinophil percentageOrdered By: Jairon Medel on 06-26-2024 Eosinophils/100 WBC (Bld) 1.9 % 0-5 [facility] Erythrocyte distribution wid th ratioOrdered By: sreekanthmelrose parkmakenzie Medel on 06-26-2024 Erythrocyte distribution width (RBC) [Ratio] 14.1 % 11.6-14.6 [facility] Erythrocyte distribution wid th standard deviationOrdered By: sreekanthmelrose parkmakenzie Medel on 06-26-2024 Erythrocyte distribution width (RBC) [Ratio] 46.5 fl High 35.1-43.9 [facility] Glomerular filtration rate ( GFR) estimation/1.73 sq m using serum, plasma, or whole bOrdered By: Jairon Medel on 06-26-2024 GFR/1.73 sq M.predicted among non-blacks MDRD (S/P/Bld) [Vol rate/Area] 55 mL/min/{1.73_m2} Low >60 [facility] Comment on above: mL/min/1.73m2 CKD-EP I Creatinine Equation (2020) Hematocrit Auto (Bld) [Volum e fraction]Ordered By: Jairon Medel on 06-26-2024 Hematocrit (Bld) [Volume fraction] 32.7 % Low 37-47 [facility] Hemoglobin measurementOrdere d By: Jairon Medel on 06-26-2024 Hemoglobin (Bld) [Mass/Vol] 10.1 g/dL Low 12.0-15.0 [facility] Immature granulocytes/100 WB C Auto (Bld)Ordered By: Jairon Medel on 06-26-2024 Immature granulocytes/100 WBC (Bld) 0.400 % 0.0-0.9 [facility] Comment on above: IG% - Immature Granu locytes (promyelocytes, myelocytes and metamyelocytes) > 1% indicates that a LEFT SHIFT is Present. MCV (mean corpuscular volume ) determinationOrdered By: Jairon Medel on 06-26-2024 MCV (RBC) [Entitic vol] 90.3 fL 81-99 [facility] Mean corpuscular hemoglobin (MCH) determinationOrdered By: Jairon Medel on 06-26-2024 MCH (RBC) [Entitic mass] 27.9 pg 27.0-32.0 [facility] Mean corpuscular hemoglobin concentration (MCHC) determinationOrdered By: Jairon Medel on 06-26-2024 MCHC (RBC) [Mass/Vol] 30.9 g/dL Low 32-36 [facility] Mean platelet volume determi nationOrdered By: Jairon Medel on 06-26-2024 Platelet mean volume (Bld) [Entitic vol] 10.3 fL 6.2-12.0 [facility] Monocyte percentageOrdered B y: Jairon Medel on 06-26-2024 Monocytes/100 WBC (Bld) 8.8 % 0-10 [facility] Neutrophil percentageOrdered By: [facility] Cent[facility] Medel on 06-26-2024 Neutrophils/100 WBC (Bld) 58.0 % 47-70 [facility] Nucleated red blood cell per centageOrdered By: sreekanthmelrose parkmakenzie Medel on 06-26-2024 Nucleated RBC/100 WBC (Bld) [Ratio] 0 % 0-5 [facility] Platelet countOrdered By: Pooja Medel on 06-26-2024 Platelets (Bld) [#/Vol] 242 10*3/uL 150-450 [facility] Potassium measurement (mass/ volume)Ordered By: Jairon Medel on 06-26-2024 Potassium (Unsp spec) [Mass/Vol] 4.3 mmol/L 3.3-5.1 [facility] RBC Auto (Bld) [#/Vol]Ordere d By: Jairon Medel on 06-26-2024 RBC (Bld) [#/Vol] 3.62 10*6/uL Low 4.2-5.4 [facility] Serum creatinine measurement (mass/volume)Ordered By: Jairon Medel on 06-26-2024 Creatinine [Mass/Vol] 1.01 mg/dL 0.70-1.20 [facility] Serum glucose measurement (m ass/volume)Ordered By: Jairon Medel on 06-26-2024 Glucose [Mass/Vol] 89 mg/dL 70-99 [facility] Serum or plasma calcium krissy urement (mass/volume)Ordered By: Jairon Medel on 06-26-2024 Calcium [Mass/Vol] 9.6 mg/dL 7.6-11.0 [facility] Serum or plasma urea nitroge n measurement (mass/volume)Ordered By: Jairon Medel on 06-26-2024 Urea nitrogen [Mass/Vol] 21 mg/dL High 4-19 [facility] Sodium levelOrdered By: Carrillo malcolmrajesh Gianfranco on 06-26-2024 Sodium [Moles/Vol] 140 mmol/L 133-145 [facility] White blood cell (WBC) count Ordered By: Jairon Medel on 06-26-2024 WBC (Bld) [#/Vol] 6.7 10*3/uL 4.4-11.0 [facility] Absolute lymphocyte countOrd ered By: Jairon Medel on 05-29-2024 Lymphocytes Auto (Unsp spec) [#/Vol] 2.09 10*3/uL 0.83-4.51 [facility] Absolute neutrophil countOrd ered By: Jairon Medel on 05-29-2024 Neutrophils (Bld) [#/Vol] 3.4 10*3/uL 2.0-7.7 [facility] Anion gap in Serum or Plasma Ordered By: Jairon Medel on 05-29-2024 Anion gap [Moles/Vol] 10 mmol/L 5-15 [facility] Automated lymphocyte count a s percentage of total leukocytesOrdered By: Jairon Medel on 05-29-2024 Lymphocytes/100 WBC Auto (Unsp spec) 34.4 % [facility] BUN/creatinine ratioOrdered By: Jairon Medel on 05-29-2024 Urea nitrogen/Creatinine [Mass ratio] 16.9 mg/mg 10-20 [facility] Basophil percentageOrdered B y: Carrillomahadmakenzie Torojenifersophia on 05-29-2024 Basophils/100 WBC (Bld) 1.2 % High 0-1 [facility] Bilirubin directOrdered By: Jairon Medel on 05-29-2024 Bilirubin.direct [Mass/Vol] 0.17 mg/dL 0.00-0.30 [facility] Bilirubin, totalOrdered By: Jairon Medel on 05-29-2024 Bilirubin [Mass/Vol] 0.35 mg/dL 0.00-1.30 [facility] Carbon dioxide, total [Moles /volume] in Central venous bloodOrdered By: Jairon Medel on 05-29-2024 CO2 [Moles/Vol] 25.1 mmol/L 21.0-32.0 [facility] Chloride assayOrdered By: Pooja sreekanthbraden Medel on 05-29-2024 Chloride [Moles/Vol] 105 mmol/L 98-108 [facility] Eosinophil percentageOrdered By: Jairon Medel on 05-29-2024 Eosinophils/100 WBC (Bld) 1.6 % 0-5 [facility] Erythrocyte distribution wid th (RBC) [Ratio]Ordered By: Jairon Medel on 05-29-2024 Erythrocyte distribution width (RBC) [Entitic vol] 41.0 fL 35.1-43.9 [facility] Erythrocyte distribution wid th ratioOrdered By: Jairon Medel on 05-29-2024 Erythrocyte distribution width (RBC) [Ratio] 13.1 % 11.6-14.6 [facility] Erythrocyte distribution wid th standard deviationOrdered By: Jairon Medel on 05-29-2024 Erythrocyte distribution width (RBC) [Ratio] 41.0 fl 35.1-43.9 [facility] GFR/1.73 sq M.predicted hua g non-blacks MDRD (S/P/Bld) [Vol rate/Area]Ordered By: Jairon Medel on 05-29-2024 Estimated GFR (MDRD) Non-Af Amer 50 Low >60 [facility] Comment on above: mL/min/1.73m2 CKD-EP I Creatinine Equation (2020) Glomerular filtration rate ( GFR) estimation/1.73 sq m using serum, plasma, or whole bOrdered By: Jairon Medel on 05-29-2024 GFR/1.73 sq M.predicted among non-blacks MDRD (S/P/Bld) [Vol rate/Area] 50 mL/min/{1.73_m2} Low >60 [facility] Comment on above: mL/min/1.73m2 CKD-EP I Creatinine Equation (2020) Hematocrit Auto (Bld) [Volum e fraction]Ordered By: Jairon Medel on 05-29-2024 Hematocrit (Bld) [Volume fraction] 33.4 % Low 37-47 [facility] Hemoglobin measurementOrdere d By: Jairon Medel on 05-29-2024 Hemoglobin (Bld) [Mass/Vol] 10.9 g/dL Low 12.0-15.0 [facility] Immature granulocytes/100 WB C Auto (Bld)Ordered By: Jairon Medel on 05-29-2024 Immature granulocytes/100 WBC (Bld) 0.200 % 0.0-0.9 [facility] Comment on above: IG% - Immature Granu locytes (promyelocytes, myelocytes and metamyelocytes) > 1% indicates that a LEFT SHIFT is Present. Laboratory - Chemistry and C hemistry - challengeOrdered By: Jairon Medel on 05-29-2024 AST [Catalytic activity/Vol] 20 U/L <32 [facility] Lymphocytes Auto (Unsp spec) [#/Vol]Ordered By: Jairon Medel on 05-29-2024 Lymphocytes (Bld) [#/Vol] 2.09 10*3/uL 0.83-4.51 [facility] Lymphocytes/100 WBC Auto (Un sp spec)Ordered By: Jairon Medel on 05-29-2024 Lymphocytes/100 WBC (Bld) 34.4 % 19-41 [facility] MCV (mean corpuscular volume ) determinationOrdered By: Jairon Medel on 05-29-2024 MCV (RBC) [Entitic vol] 85.9 fL 81-99 [facility] Mean corpuscular hemoglobin (MCH) determinationOrdered By: Poojasreekanthmahadmakenzie Torojenifersophia on 05-29-2024 MCH (RBC) [Entitic mass] 28.0 pg 27.0-32.0 [facility] Mean corpuscular hemoglobin concentration (MCHC) determinationOrdered By: Jairon Torojenifersophia on 05-29-2024 MCHC (RBC) [Mass/Vol] 32.6 g/dL 32-36 [facility] Mean platelet volume determi nationOrdered By: Poojasreekanthmahadmakenzie Torojenifersophia on 05-29-2024 Platelet mean volume (Bld) [Entitic vol] 10.3 fL 6.2-12.0 [facility] Monocyte percentageOrdered B y: Carrillomahadmakenzie Torojenifersophia on 05-29-2024 Monocytes/100 WBC (Bld) 7.6 % 0-10 [facility] Neutrophil percentageOrdered By: Poojasreekanthmahadmakenzie Torojenifersophia on 05-29-2024 Neutrophils/100 WBC (Bld) 55.0 % 47-70 [facility] Nucleated red blood cell per centageOrdered By: Goldiemakenzie Torojenifersophia on 05-29-2024 Nucleated RBC/100 WBC (Bld) [Ratio] 0 % 0-5 [facility] Platelet countOrdered By: Pooja margarette Cortezjenifersophia on 05-29-2024 Platelets (Bld) [#/Vol] 247 10*3/uL 150-450 [facility] Potassium (Unsp spec) [Mass/ Vol]Ordered By: Jairon Medel on 05-29-2024 Potassium [Moles/Vol] 4.3 mmol/L 3.3-5.1 [facility] Potassium measurement (mass/ volume)Ordered By: Jairon Torojenifersophia on 05-29-2024 Potassium (Unsp spec) [Mass/Vol] 4.3 mmol/L 3.3-5.1 [facility] RBC Auto (Bld) [#/Vol]Ordere d By: Jairon Medel on 05-29-2024 RBC (Bld) [#/Vol] 3.89 10*6/uL Low 4.2-5.4 [facility] Serum creatinine measurement (mass/volume)Ordered By: Jairon Medel on 05-29-2024 Creatinine [Mass/Vol] 1.08 mg/dL 0.70-1.20 [facility] Serum globulin measurementOr dered By: Jairon Medel on 05-29-2024 Globulin (S) [Mass/Vol] 2.5 g/dL 2.2-4.2 [facility] Serum glucose measurement (m ass/volume)Ordered By: Jairon Medel on 05-29-2024 Glucose [Mass/Vol] 89 mg/dL 70-99 [facility] Serum or plasma alanine crane otransferase (ALT) measurementOrdered By: Jairon Medel on 05-29-2024 ALT [Catalytic activity/Vol] 11 U/L <35 [facility] Serum or plasma albumin krissy urement (mass/volume)Ordered By: Jairon Medel on 05-29-2024 Albumin [Mass/Vol] 4.0 g/dL 3.4-4.8 [facility] Serum or plasma alkaline luis sphatase measurementOrdered By: Jairon Medel on 05-29-2024 ALP [Catalytic activity/Vol] 62 U/L 35-104 [facility] Serum or plasma calcium krissy urement (mass/volume)Ordered By: Jairon Medel on 05-29-2024 Calcium [Mass/Vol] 9.8 mg/dL 7.6-11.0 [facility] Serum or plasma urea nitroge n measurement (mass/volume)Ordered By: Jairon Medel on 05-29-2024 Urea nitrogen [Mass/Vol] 18 mg/dL 4-19 [facility] Sodium levelOrdered By: Carrillo Medel on 05-29-2024 Sodium [Moles/Vol] 140 mmol/L 133-145 [facility] Total proteinOrdered By: Masoud Medel on 05-29-2024 Protein [Mass/Vol] 6.4 g/dL 5.9-8.4 [facility] White blood cell (WBC) count Ordered By: Carrillomahadmakenzie Haleysophia on 05-29-2024 WBC (Bld) [#/Vol] 6.1 10*3/uL 4.4-11.0 [facility] Absolute lymphocyte countOrd ered By: Poojasreekanthbraden Medel on 05-24-2024 Lymphocytes Auto (Unsp spec) [#/Vol] 1.90 10*3/uL 0.83-4.51 [facility] Absolute neutrophil countOrd ered By: Jairon Medel on 05-24-2024 Neutrophils (Bld) [#/Vol] 3.1 10*3/uL 2.0-7.7 [facility] Anion gap in Serum or Plasma Ordered By: Jairon Torojenifersophia on 05-24-2024 Anion gap [Moles/Vol] 11 mmol/L 5-15 [facility] Automated lymphocyte count a s percentage of total leukocytesOrdered By: Jairon Torojenifersophia on 05-24-2024 Lymphocytes/100 WBC Auto (Unsp spec) 33.6 % 19-41 [facility] [facility] BUN/creatinine ratioOrdered By: Carrillobraden Cortezjenifersophia on 05-24-2024 Urea nitrogen/Creatinine [Mass ratio] 19.7 mg/mg 10-20 [facility] Basophil percentageOrdered B y: Carrillomahadmakenzie Torojenifersophia on 05-24-2024 Basophils/100 WBC (Bld) 1.1 % High 0-1 [facility] Bilirubin, totalOrdered By: Jairon Torojenifersophia on 05-24-2024 Bilirubin [Mass/Vol] 0.29 mg/dL 0.00-1.30 [facility] Carbon dioxide, total [Moles /volume] in Central venous bloodOrdered By: Jairon Torojenifersophia on 05-24-2024 CO2 [Moles/Vol] 23.5 mmol/L 21.0-32.0 [facility] Chloride assayOrdered By: Pooja sreekanthbraden Torojenifersophia on 05-24-2024 Chloride [Moles/Vol] 106 mmol/L 98-108 [facility] Eosinophil percentageOrdered By: Carrillomahadmakenzie Torojenifersophia on 05-24-2024 Eosinophils/100 WBC (Bld) 2.1 % 0-5 [facility] Erythrocyte distribution wid th (RBC) [Ratio]Ordered By: Jairon Medel on 05-24-2024 Erythrocyte distribution width (RBC) [Entitic vol] 41.3 fL 35.1-43.9 [facility] Erythrocyte distribution wid th ratioOrdered By: Jairon Medel on 05-24-2024 Erythrocyte distribution width (RBC) [Ratio] 13.2 % 11.6-14.6 [facility] Erythrocyte distribution wid th standard deviationOrdered By: Jairon Medel on 05-24-2024 Erythrocyte distribution width (RBC) [Ratio] 41.3 fl 35.1-43.9 [facility] GFR/1.73 sq M.predicted hua g non-blacks MDRD (S/P/Bld) [Vol rate/Area]Ordered By: Jairon Medel on 05-24-2024 Estimated GFR (MDRD) Non-Af Amer 52 Low >60 [facility] Comment on above: mL/min/1.73m2 CKD-EP I Creatinine Equation (2020) Glomerular filtration rate ( GFR) estimation/1.73 sq m using serum, plasma, or whole bOrdered By: Jairon Medel on 05-24-2024 GFR/1.73 sq M.predicted among non-blacks MDRD (S/P/Bld) [Vol rate/Area] 52 mL/min/{1.73_m2} Low >60 [facility] Comment on above: mL/min/1.73m2 CKD-EP I Creatinine Equation (2020) Hematocrit Auto (Bld) [Volum e fraction]Ordered By: Jairon Medel on 05-24-2024 Hematocrit (Bld) [Volume fraction] 33.2 % Low 37-47 [facility] Hemoglobin A1c percentageOrd ered By: Jairon Medel on 05-24-2024 HbA1c (Bld) [Mass fraction] 5.5 % <5.7 [facility] Comment on above: Normal < 5.7 % Predi abetic 5.7 - 6.4 % Diabetic >or= 6.5 % Please note range changes. Hemoglobin measurementOrdere d By: Jairon Medel on 05-24-2024 Hemoglobin (Bld) [Mass/Vol] 10.7 g/dL Low 12.0-15.0 [facility] Immature granulocytes/100 WB C Auto (Bld)Ordered By: Jairon Medel on 05-24-2024 Immature granulocytes/100 WBC (Bld) 0.200 % 0.0-0.9 [facility] Comment on above: IG% - Immature Granu locytes (promyelocytes, myelocytes and metamyelocytes) > 1% indicates that a LEFT SHIFT is Present. Laboratory - Chemistry and C hemistry - challengeOrdered By: Jairon Medel on 05-24-2024 AST [Catalytic activity/Vol] 21 U/L <32 [facility] Lymphocytes Auto (Unsp spec) [#/Vol]Ordered By: Jairon Medel on 05-24-2024 Lymphocytes (Bld) [#/Vol] 1.90 10*3/uL 0.83-4.51 [facility] Lymphocytes/100 WBC Auto (Un sp spec)Ordered By: Jairon Medel on 05-24-2024 Lymphocytes/100 WBC (Bld) 33.6 % 19-41 [facility] MCV (mean corpuscular volume ) determinationOrdered By: Jairon Medel on 05-24-2024 MCV (RBC) [Entitic vol] 86.2 fL 81-99 [facility] Mean corpuscular hemoglobin (MCH) determinationOrdered By: Jairon Medel on 05-24-2024 MCH (RBC) [Entitic mass] 27.8 pg 27.0-32.0 [facility] Mean corpuscular hemoglobin concentration (MCHC) determinationOrdered By: Jairon Medel on 05-24-2024 MCHC (RBC) [Mass/Vol] 32.2 g/dL 32-36 [facility] Mean platelet volume determi nationOrdered By: Jairon Medel on 05-24-2024 Platelet mean volume (Bld) [Entitic vol] 10.2 fL 6.2-12.0 [facility] Monocyte percentageOrdered B y: Jairon Medel on 05-24-2024 Monocytes/100 WBC (Bld) 8.1 % 0-10 [facility] Neutrophil percentageOrdered By: Jairon Medel on 05-24-2024 Neutrophils/100 WBC (Bld) 54.9 % 47-70 [facility] Nucleated red blood cell per centageOrdered By: Jairon Medel on 05-24-2024 Nucleated RBC/100 WBC (Bld) [Ratio] 0 % 0-5 [facility] Platelet countOrdered By: Pooja Medel on 05-24-2024 Platelets (Bld) [#/Vol] 264 10*3/uL 150-450 [facility] Potassium (Unsp spec) [Mass/ Vol]Ordered By: Jairon Medel on 05-24-2024 Potassium [Moles/Vol] 3.9 mmol/L 3.3-5.1 [facility] Potassium measurement (mass/ volume)Ordered By: Jairon Medel on 05-24-2024 Potassium (Unsp spec) [Mass/Vol] 3.9 mmol/L 3.3-5.1 [facility] RBC Auto (Bld) [#/Vol]Ordere d By: Jairon Medel on 05-24-2024 RBC (Bld) [#/Vol] 3.85 10*6/uL Low 4.2-5.4 [facility] Serum creatinine measurement (mass/volume)Ordered By: Jairon Medel on 05-24-2024 Creatinine [Mass/Vol] 1.05 mg/dL 0.70-1.20 [facility] Serum globulin measurementOr dered By: Jairon Medel on 05-24-2024 Globulin (S) [Mass/Vol] 2.6 g/dL 2.2-4.2 [facility] Serum glucose measurement (m ass/volume)Ordered By: Jairon Medel on 05-24-2024 Glucose [Mass/Vol] 95 mg/dL 70-99 [facility] Serum or plasma alanine crane otransferase (ALT) measurementOrdered By: Jairon Medel on 05-24-2024 ALT [Catalytic activity/Vol] 11 U/L <35 [facility] Serum or plasma albumin krissy urement (mass/volume)Ordered By: Jairon Medel on 05-24-2024 Albumin [Mass/Vol] 4.0 g/dL 3.4-4.8 [facility] Serum or plasma albumin/glob ulin mass ratioOrdered By: Jairon Medel on 05-24-2024 Albumin/Globulin [Mass ratio] 1.5 {ratio} 0.9-2.4 [facility] Serum or plasma alkaline luis sphatase measurementOrdered By: Jairon Medel on 05-24-2024 ALP [Catalytic activity/Vol] 67 U/L 35-104 [facility] Serum or plasma calcium krissy urement (mass/volume)Ordered By: Jairon Medel on 05-24-2024 Calcium [Mass/Vol] 9.9 mg/dL 7.6-11.0 [facility] Serum or plasma urea nitroge n measurement (mass/volume)Ordered By: Jairon Medel on 05-24-2024 Urea nitrogen [Mass/Vol] 21 mg/dL High 4-19 [facility] Sodium levelOrdered By: Carrillo malcolmrajesh Gianfranco on 05-24-2024 Sodium [Moles/Vol] 141 mmol/L 133-145 [facility] Total proteinOrdered By: Masoud Medel on 05-24-2024 Protein [Mass/Vol] 6.6 g/dL 5.9-8.4 [facility] White blood cell (WBC) count Ordered By: Jairon Medel 05-24-2024 WBC (Bld) [#/Vol] 5.7 10*3/uL 4.4-11.0 [facility] Anion gap in Serum or Plasma Ordered By: Jairon Medel on 05-15-2024 Anion gap [Moles/Vol] 10 mmol/L 5-15 [facility] BUN/creatinine ratioOrdered By: Jairon Medel on 05-15-2024 Urea nitrogen/Creatinine [Mass ratio] 15.3 mg/mg 10-20 [facility] Carbon dioxide, total [Moles /volume] in Central venous bloodOrdered By: Jairon Medel on 05-15-2024 CO2 [Moles/Vol] 25.0 mmol/L 21.0-32.0 [facility] Chloride assayOrdered By: Pooja Medel on 05-15-2024 Chloride [Moles/Vol] 108 mmol/L 98-108 [facility] GFR/1.73 sq M.predicted hua g non-blacks MDRD (S/P/Bld) [Vol rate/Area]Ordered By: Jairon Medel on 05-15-2024 Estimated GFR (MDRD) Non-Af Amer 57 Low >60 [facility] Comment on above: mL/min/1.73m2 CKD-EP I Creatinine Equation (2020) Glomerular filtration rate ( GFR) estimation/1.73 sq m using serum, plasma, or whole bOrdered By: Jairon Medel on 05-15-2024 GFR/1.73 sq M.predicted among non-blacks MDRD (S/P/Bld) [Vol rate/Area] 57 mL/min/{1.73_m2} Low >60 [facility] Comment on above: mL/min/1.73m2 CKD-EP I Creatinine Equation (2020) Potassium (Unsp spec) [Mass/ Vol]Ordered By: Jairon Medel on 05-15-2024 Potassium [Moles/Vol] 3.8 mmol/L 3.3-5.1 [facility] Potassium measurement (mass/ volume)Ordered By: Jairon Medel on 05-15-2024 Potassium (Unsp spec) [Mass/Vol] 3.8 mmol/L 3.3-5.1 [facility] Serum creatinine measurement (mass/volume)Ordered By: Jairon Medel on 05-15-2024 Creatinine [Mass/Vol] 0.98 mg/dL 0.70-1.20 [facility] Serum glucose measurement (m ass/volume)Ordered By: Jairon Medel on 05-15-2024 Glucose [Mass/Vol] 87 mg/dL 70-99 [facility] Serum or plasma calcium krissy urement (mass/volume)Ordered By: Jairon Medel on 05-15-2024 Calcium [Mass/Vol] 9.8 mg/dL 7.6-11.0 [facility] Serum or plasma urea nitroge n measurement (mass/volume)Ordered By: Jairon Torojenifersophia on 05-15-2024 Urea nitrogen [Mass/Vol] 15 mg/dL 4-19 [facility] Sodium levelOrdered By: Carrillo braden Cortezjenifersophia on 05-15-2024 Sodium [Moles/Vol] 143 mmol/L 133-145 [facility] Absolute lymphocyte countOrd ered By: Carrillobraden Cortezjenifersophia on 05-01-2024 Lymphocytes Auto (Unsp spec) [#/Vol] 1.90 10*3/uL 0.83-4.51 [facility] Absolute neutrophil countOrd ered By: Carrillomahadmakenzie Torojenifersophia on 05-01-2024 Neutrophils (Bld) [#/Vol] 2.7 10*3/uL 2.0-7.7 [facility] Anion gap in Serum or Plasma Ordered By: Jairon Medel on 05-01-2024 Anion gap [Moles/Vol] 11 mmol/L 5-15 [facility] Automated lymphocyte count a s percentage of total leukocytesOrdered By: Jairon Torojenifersophia on 05-01-2024 Lymphocytes/100 WBC Auto (Unsp spec) 35.5 % 19-41 [facility] BUN/creatinine ratioOrdered By: Jairon Torojenifersophia on 05-01-2024 Urea nitrogen/Creatinine [Mass ratio] 17.8 mg/mg 10-20 [facility] Basophil percentageOrdered B y: Carrillomahadmakenzie Torojenifersophia on 05-01-2024 Basophils/100 WBC (Bld) 1.5 % High 0-1 [facility] Carbon dioxide, total [Moles /volume] in Central venous bloodOrdered By: Jairon Torojenifersophia on 05-01-2024 CO2 [Moles/Vol] 23.3 mmol/L 21.0-32.0 [facility] Chloride assayOrdered By: Pooja Medel on 05-01-2024 Chloride [Moles/Vol] 107 mmol/L 98-108 [facility] Eosinophil percentageOrdered By: Carrillomahadmakenzie Torojenifersophia on 05-01-2024 Eosinophils/100 WBC (Bld) 2.2 % 0-5 [facility] Erythrocyte distribution wid th (RBC) [Ratio]Ordered By: Jairon Medel on 05-01-2024 Erythrocyte distribution width (RBC) [Entitic vol] 44.5 fL High 35.1-43.9 [facility] Erythrocyte distribution wid th ratioOrdered By: Jairon Medel on 05-01-2024 Erythrocyte distribution width (RBC) [Ratio] 13.0 % 11.6-14.6 [facility] Erythrocyte distribution wid th standard deviationOrdered By: Jairon Medel on 05-01-2024 Erythrocyte distribution width (RBC) [Ratio] 44.5 fl High 35.1-43.9 [facility] GFR/1.73 sq M.predicted hua g non-blacks MDRD (S/P/Bld) [Vol rate/Area]Ordered By: Jairon Medel on 05-01-2024 Estimated GFR (MDRD) Non-Af Amer 58 Low >60 [facility] Comment on above: mL/min/1.73m2 CKD-EP I Creatinine Equation (2020) Glomerular filtration rate ( GFR) estimation/1.73 sq m using serum, plasma, or whole bOrdered By: Jairon Medel on 05-01-2024 GFR/1.73 sq M.predicted among non-blacks MDRD (S/P/Bld) [Vol rate/Area] 58 mL/min/{1.73_m2} Low >60 [facility] Comment on above: mL/min/1.73m2 CKD-EP I Creatinine Equation (2020) Hematocrit Auto (Bld) [Volum e fraction]Ordered By: Jairon Medel on 05-01-2024 Hematocrit (Bld) [Volume fraction] 37.3 % 37-47 [facility] Hemoglobin measurementOrdere d By: Jairon Medel on 05-01-2024 Hemoglobin (Bld) [Mass/Vol] 11.3 g/dL Low 12.0-15.0 [facility] Immature granulocytes/100 WB C Auto (Bld)Ordered By: Jairon Medel on 05-01-2024 Immature granulocytes/100 WBC (Bld) 1.100 % High 0.0-0.9 [facility] Comment on above: IG% - Immature Granu locytes (promyelocytes, myelocytes and metamyelocytes) > 1% indicates that a LEFT SHIFT is Present. Lymphocytes Auto (Unsp spec) [#/Vol]Ordered By: Jairon Medel on 05-01-2024 Lymphocytes (Bld) [#/Vol] 1.90 10*3/uL 0.83-4.51 [facility] Lymphocytes/100 WBC Auto (Un sp spec)Ordered By: Jairon Medel on 05-01-2024 Lymphocytes/100 WBC (Bld) 35.5 % 19-41 [facility] MCV (mean corpuscular volume ) determinationOrdered By: Jairon Medel on 05-01-2024 MCV (RBC) [Entitic vol] 93.5 fL 81-99 [facility] Mean corpuscular hemoglobin (MCH) determinationOrdered By: Jairon Medel on 05-01-2024 MCH (RBC) [Entitic mass] 28.3 pg 27.0-32.0 [facility] Mean corpuscular hemoglobin concentration (MCHC) determinationOrdered By: Jairon Medel on 05-01-2024 MCHC (RBC) [Mass/Vol] 30.3 g/dL Low 32-36 [facility] Mean platelet volume determi nationOrdered By: Jairon Medel on 05-01-2024 Platelet mean volume (Bld) [Entitic vol] 10.2 fL 6.2-12.0 [facility] Monocyte percentageOrdered B y: Jairon Medel on 05-01-2024 Monocytes/100 WBC (Bld) 9.0 % 0-10 [facility] Neutrophil percentageOrdered By: margarette Medel on 05-01-2024 Neutrophils/100 WBC (Bld) 50.7 % 47-70 [facility] Nucleated red blood cell per centageOrdered By: Jairon Medel on 05-01-2024 Nucleated RBC/100 WBC (Bld) [Ratio] 0 % 0-5 [facility] Platelet countOrdered By: Pooja Medel on 05-01-2024 Platelets (Bld) [#/Vol] 235 10*3/uL 150-450 [facility] Potassium (Unsp spec) [Mass/ Vol]Ordered By: Poojasreekanthmahadmakenzie Torojenifersophia on 05-01-2024 Potassium [Moles/Vol] 4.3 mmol/L 3.3-5.1 [facility] Potassium measurement (mass/ volume)Ordered By: Jairon Torojenifersophia on 05-01-2024 Potassium (Unsp spec) [Mass/Vol] 4.3 mmol/L 3.3-5.1 [facility] RBC Auto (Bld) [#/Vol]Ordere d By: Jairon Cortezdorcas on 05-01-2024 RBC (Bld) [#/Vol] 3.99 10*6/uL Low 4.2-5.4 [facility] Serum creatinine measurement (mass/volume)Ordered By: Jairon Torojenifersophia on 05-01-2024 Creatinine [Mass/Vol] 0.96 mg/dL 0.70-1.20 [facility] Serum glucose measurement (m ass/volume)Ordered By: Jairon Medel on 05-01-2024 Glucose [Mass/Vol] 89 mg/dL 70-99 [facility] Serum or plasma calcium krissy urement (mass/volume)Ordered By: Jairon Torojenifersophia on 05-01-2024 Calcium [Mass/Vol] 9.8 mg/dL 7.6-11.0 [facility] Serum or plasma urea nitroge n measurement (mass/volume)Ordered By: Jairon Medel on 05-01-2024 Urea nitrogen [Mass/Vol] 17 mg/dL 4-19 [facility] Sodium levelOrdered By: Carrillo braden Cortezjenifersophia on 05-01-2024 Sodium [Moles/Vol] 141 mmol/L 133-145 [facility] White blood cell (WBC) count Ordered By: Jairon Torojenifersophia on 05-01-2024 WBC (Bld) [#/Vol] 5.4 10*3/uL 4.4-11.0 [facility] Absolute lymphocyte countOrd ered By: Jairon Medel on 04-03-2024 Lymphocytes Auto (Unsp spec) [#/Vol] 1.70 10*3/uL 0.83-4.51 [facility] Absolute neutrophil countOrd ered By: Jairon Torojenifersophia on 04-03-2024 Neutrophils (Bld) [#/Vol] 3.0 10*3/uL 2.0-7.7 [facility] Automated lymphocyte count a s percentage of total leukocytesOrdered By: Jairon Medel on 04-03-2024 Lymphocytes/100 WBC Auto (Unsp spec) 32.1 % 19-41 [facility] Basophil percentageOrdered B y: Jairon Medel on 04-03-2024 Basophils/100 WBC (Bld) 1.3 % High 0-1 [facility] Blood urea nitrogen (BUN)/cr eatinine ratioOrdered By: Jairon Medel on 04-03-2024 Urea nitrogen/Creatinine [Mass ratio] 21.1 mg/mg High 10-20 [facility] Carbon dioxide measurementOr dered By: Jairon Medel on 04-03-2024 CO2 [Moles/Vol] 27.0 mmol/L 21.0-32.0 [facility] Chloride measurementOrdered By: sreekanthmelrose parkmakenzie Medel on 04-03-2024 Chloride [Moles/Vol] 111 mmol/L High 98-107 [facility] Eosinophil percentageOrdered By: Jairon Medel on 04-03-2024 Eosinophils/100 WBC (Bld) 2.3 % 0-5 [facility] Erythrocyte distribution wid th (RBC) [Ratio]Ordered By: Jairon Medel on 04-03-2024 Erythrocyte distribution width (RBC) [Entitic vol] 43.2 fL 35.1-43.9 [facility] Erythrocyte distribution wid th ratioOrdered By: sreekanthmelrose parkmakenzie Medel on 04-03-2024 Erythrocyte distribution width (RBC) [Ratio] 13.2 % 11.6-14.6 [facility] Erythrocyte distribution wid th standard deviationOrdered By: sreekanthmelrose parkmakenzie Medel on 04-03-2024 Erythrocyte distribution width (RBC) [Ratio] 43.2 fl 35.1-43.9 [facility] Estimated glomerular filtrat ion rate (GFR) AmericanOrdered By: Jairon Medel on 04-03-2024 Estimated GFR (MDRD) Amer 72 mL/min >60 [facility] Comment on above: GFR Calc Glomerular filtration rate ( GFR) estimationOrdered By: Jairon Medel on 04-03-2024 Estimated GFR (MDRD) Non-Af Amer 59 mL/min Low >60 [facility] Comment on above: Non- GFR Calc GFR/1.73 sq M.predicted among non-blacks MDRD (S/P/Bld) [Vol rate/Area] 59 mL/min/{1.73_m2} Low >60 [facility] Comment on above: Non- GFR Calc Glucose measurementOrdered B y: Jairon Medel on 04-03-2024 Glucose [Mass/Vol] 93 mg/dL 74-106 [facility] Hematocrit Auto (Bld) [Volum e fraction]Ordered By: Jairon Medel on 04-03-2024 Hematocrit (Bld) [Volume fraction] 31.6 % Low 37-47 [facility] Hemoglobin measurementOrdere d By: Jairon Medel on 04-03-2024 Hemoglobin (Bld) [Mass/Vol] 9.7 g/dL Low 12.0-15.0 [facility] Immature granulocytes/100 WB C Auto (Bld)Ordered By: Jairon Medel on 04-03-2024 Immature granulocytes/100 WBC (Bld) 0.200 % 0.0-0.9 [facility] Comment on above: IG% - Immature Granu locytes (promyelocytes, myelocytes and metamyelocytes) > 1% indicates that a LEFT SHIFT is Present. Lymphocytes Auto (Unsp spec) [#/Vol]Ordered By: Jairon Medel on 04-03-2024 Lymphocytes (Bld) [#/Vol] 1.70 10*3/uL 0.83-4.51 [facility] Lymphocytes/100 WBC Auto (Un sp spec)Ordered By: Jairon Medel on 04-03-2024 Lymphocytes/100 WBC (Bld) 32.1 % 19-41 [facility] MCV (mean corpuscular volume ) determinationOrdered By: Jairon Medel on 04-03-2024 MCV (RBC) [Entitic vol] 91.1 fL 81-99 [facility] Mean corpuscular hemoglobin (MCH) determinationOrdered By: Jairon Medel on 04-03-2024 MCH (RBC) [Entitic mass] 28.0 pg 27.0-32.0 [facility] Mean corpuscular hemoglobin concentration (MCHC) determinationOrdered By: Jairon Medel on 04-03-2024 MCHC (RBC) [Mass/Vol] 30.7 g/dL Low 32-36 [facility] Mean platelet volume determi nationOrdered By: Jairon Medel on 04-03-2024 Platelet mean volume (Bld) [Entitic vol] 9.9 fL 6.2-12.0 [facility] Monocyte percentageOrdered B y: Jairon Medel on 04-03-2024 Monocytes/100 WBC (Bld) 8.3 % 0-10 [facility] Neutrophil percentageOrdered By: Jairon Medel on 04-03-2024 Neutrophils/100 WBC (Bld) 55.8 % 47-70 [facility] Nucleated red blood cell per centageOrdered By: Jairon Medel on 04-03-2024 Nucleated RBC/100 WBC (Bld) [Ratio] 0 % 0-5 [facility] Platelet countOrdered By: Pooja Medel on 04-03-2024 Platelets (Bld) [#/Vol] 229 10*3/uL 150-450 [facility] Potassium measurementOrdered By: Jairon Medel on 04-03-2024 Potassium [Moles/Vol] 4.4 mmol/L 3.5-5.1 [facility] RBC Auto (Bld) [#/Vol]Ordere d By: Jairon Medel on 04-03-2024 RBC (Bld) [#/Vol] 3.47 10*6/uL Low 4.2-5.4 [facility] Serum anion gap measurementO rdered By: Jairon Medel on 04-03-2024 Anion gap [Moles/Vol] 6 mmol/L 5-15 [facility] Serum or plasma calcium krissy urement (mass/volume)Ordered By: Poojasreekanthbraden Cortezdorcas on 04-03-2024 Calcium [Mass/Vol] 9.4 mg/dL 8.5-10.1 [facility] Serum or plasma creatinine m easurement (mass/volume)Ordered By: Poojasreekanthmahadmakenzie Torojenifersophia on 04-03-2024 Creatinine [Mass/Vol] 0.95 mg/dL 0.55-1.02 [facility] Comment on above: The validity of the calculated GFR & GFRAA in patients over 70 years has not been determined. Clinical correlation is essential. Serum or plasma urea nitroge n measurement (mass/volume)Ordered By: Poojasreekanthmahadmakenzie Torojenifersophia on 04-03-2024 Urea nitrogen [Mass/Vol] 20 mg/dL High 7-18 [facility] Sodium levelOrdered By: Carrillo feliciano Cortezjenifersophia on 04-03-2024 Sodium [Moles/Vol] 144 mmol/L 136-145 [facility] White blood cell (WBC) count Ordered By: Poojasreekanthbraden Medel on 04-03-2024 WBC (Bld) [#/Vol] 5.3 10*3/uL 4.4-11.0 [facility] Absolute lymphocyte countOrd ered By: Jairon Medel on 03-27-2024 Lymphocytes Auto (Unsp spec) [#/Vol] 2.06 10*3/uL 0.83-4.51 [facility] Absolute neutrophil countOrd ered By: Jairon Medel on 03-27-2024 Neutrophils (Bld) [#/Vol] 3.3 10*3/uL 2.0-7.7 [facility] Automated lymphocyte count a s percentage of total leukocytesOrdered By: Poojasreekanthmahadmakenzie Torojenifersophia on 03-27-2024 Lymphocytes/100 WBC Auto (Unsp spec) 33.5 % 19-41 [facility] Basophil percentageOrdered B y: Goldiemakenzie Torojenifersophia on 03-27-2024 Basophils/100 WBC (Bld) 0.8 % 0-1 [facility] Blood urea nitrogen (BUN)/cr eatinine ratioOrdered By: Jairon Medel on 03-27-2024 Urea nitrogen/Creatinine [Mass ratio] 19.3 mg/mg 10-20 [facility] Carbon dioxide measurementOr dered By: Jairon Medel on 03-27-2024 CO2 [Moles/Vol] 27.0 mmol/L 21.0-32.0 [facility] Chloride measurementOrdered By: Jairon Medel on 03-27-2024 Chloride [Moles/Vol] 110 mmol/L High 98-107 [facility] Eosinophil percentageOrdered By: Jairon Medel on 03-27-2024 Eosinophils/100 WBC (Bld) 2.3 % 0-5 [facility] Erythrocyte distribution wid th (RBC) [Ratio]Ordered By: Jairon Medel on 03-27-2024 Erythrocyte distribution width (RBC) [Entitic vol] 43.7 fL 35.1-43.9 [facility] Erythrocyte distribution wid th ratioOrdered By: Jairon Medel on 03-27-2024 Erythrocyte distribution width (RBC) [Ratio] 13.2 % 11.6-14.6 [facility] Erythrocyte distribution wid th standard deviationOrdered By: Jairon Medel on 03-27-2024 Erythrocyte distribution width (RBC) [Ratio] 43.7 fl 35.1-43.9 [facility] Estimated glomerular filtrat ion rate (GFR) AmericanOrdered By: Jairon Medel on 03-27-2024 Estimated GFR (MDRD) Amer 69 mL/min >60 [facility] Comment on above: GFR Calc Glomerular filtration rate ( GFR) estimationOrdered By: Jairon Medel on 03-27-2024 Estimated GFR (MDRD) Non-Af Amer 57 mL/min Low >60 [facility] Comment on above: Non- GFR Calc GFR/1.73 sq M.predicted among non-blacks MDRD (S/P/Bld) [Vol rate/Area] 57 mL/min/{1.73_m2} Low >60 [facility] Comment on above: Non- GFR Calc Glucose measurementOrdered B y: Jairon Medel on 03-27-2024 Glucose [Mass/Vol] 89 mg/dL 74-106 [facility] Hematocrit Auto (Bld) [Volum e fraction]Ordered By: Jairon Medel on 03-27-2024 Hematocrit (Bld) [Volume fraction] 30.9 % Low 37-47 [facility] Hemoglobin measurementOrdere d By: Jairon Medel on 03-27-2024 Hemoglobin (Bld) [Mass/Vol] 9.6 g/dL Low 12.0-15.0 [facility] Immature granulocytes/100 WB C Auto (Bld)Ordered By: margarette Medel on 03-27-2024 Immature granulocytes/100 WBC (Bld) 0.500 % 0.0-0.9 [facility] Comment on above: IG% - Immature Granu locytes (promyelocytes, myelocytes and metamyelocytes) > 1% indicates that a LEFT SHIFT is Present. Lymphocytes Auto (Unsp spec) [#/Vol]Ordered By: Jairon Medel on 03-27-2024 Lymphocytes (Bld) [#/Vol] 2.06 10*3/uL 0.83-4.51 [facility] Lymphocytes/100 WBC Auto (Un sp spec)Ordered By: Jairon Medel on 03-27-2024 Lymphocytes/100 WBC (Bld) 33.5 % 19-41 [facility] MCV (mean corpuscular volume ) determinationOrdered By: Jairon Medel on 03-27-2024 MCV (RBC) [Entitic vol] 90.1 fL 81-99 [facility] Mean corpuscular hemoglobin (MCH) determinationOrdered By: Jairon Medel on 03-27-2024 MCH (RBC) [Entitic mass] 28.0 pg 27.0-32.0 [facility] Mean corpuscular hemoglobin concentration (MCHC) determinationOrdered By: Jairon Medel on 03-27-2024 MCHC (RBC) [Mass/Vol] 31.1 g/dL Low 32-36 [facility] Mean platelet volume determi nationOrdered By: Jairon Medel on 03-27-2024 Platelet mean volume (Bld) [Entitic vol] 10.2 fL 6.2-12.0 [facility] Monocyte percentageOrdered B y: Carrillomahadmakenzie Torojenifersophia on 03-27-2024 Monocytes/100 WBC (Bld) 9.6 % 0-10 [facility] Neutrophil percentageOrdered By: Jairon Torojenifersophia on 03-27-2024 Neutrophils/100 WBC (Bld) 53.3 % 47-70 [facility] [facility] Nucleated red blood cell per centageOrdered By: Jairon Medel on 03-27-2024 Nucleated RBC/100 WBC (Bld) [Ratio] 0 % 0-5 [facility] Platelet countOrdered By: Pooja sreekanthbraden Medel on 03-27-2024 Platelets (Bld) [#/Vol] 235 10*3/uL 150-450 [facility] Potassium measurementOrdered By: Jairon Medel on 03-27-2024 Potassium [Moles/Vol] 4.0 mmol/L 3.5-5.1 [facility] RBC Auto (Bld) [#/Vol]Ordere d By: Jairon Medel on 03-27-2024 RBC (Bld) [#/Vol] 3.43 10*6/uL Low 4.2-5.4 [facility] Serum anion gap measurementO rdered By: Jairon Medel on 03-27-2024 Anion gap [Moles/Vol] 6 mmol/L 5-15 [facility] Serum or plasma calcium krissy urement (mass/volume)Ordered By: Jairon Medel on 03-27-2024 Calcium [Mass/Vol] 9.3 mg/dL 8.5-10.1 [facility] Serum or plasma creatinine m easurement (mass/volume)Ordered By: Jairon Medel on 03-27-2024 Creatinine [Mass/Vol] 0.98 mg/dL 0.55-1.02 [facility] Comment on above: The validity of the calculated GFR & GFRAA in patients over 70 years has not been determined. Clinical correlation is essential. Serum or plasma urea nitroge n measurement (mass/volume)Ordered By: Jairon Medel on 03-27-2024 Urea nitrogen [Mass/Vol] 19 mg/dL High 7-18 [facility] Sodium levelOrdered By: Carrillo Medel on 03-27-2024 Sodium [Moles/Vol] 143 mmol/L 136-145 [facility] White blood cell (WBC) count Ordered By: Jairon Medel on 03-27-2024 WBC (Bld) [#/Vol] 6.2 10*3/uL 4.4-11.0 [facility] 07-WP-Deslmfl DOrdered By: Sophia Medel on 02-28-2024 Vitamin D 25-Hydroxy 60.8 ng/mL [facility] Comment on above: Vitamin D 25(OH) Sta tus Range Deficiency <20 ng/mL (50nmol/L) Insufficiency 20 - 30 ng/mL (50 - 75 nmol/L) Sufficiency 30 - 100 ng/mL (75 - 250 nmol/L) Toxicity >100 ng/mL (>250 nmol/L) Absolute lymphocyte countOrd ered By: Jairon Medel on 02-28-2024 Lymphocytes Auto (Unsp spec) [#/Vol] 1.75 10*3/uL 0.83-4.51 [facility] Absolute neutrophil countOrd ered By: Jairon Medel on 02-28-2024 Neutrophils (Bld) [#/Vol] 3.9 10*3/uL 2.0-7.7 [facility] Albumin to globulin ratioOrd ered By: Jairon Medel on 02-28-2024 Albumin/Globulin [Mass ratio] 1.0 {ratio} 0.9-2.4 [facility] Automated lymphocyte count a s percentage of total leukocytesOrdered By: Jairon Medel on 02-28-2024 Lymphocytes/100 WBC Auto (Unsp spec) 27.3 % 19-41 [facility] Basophil percentageOrdered B y: Jairon Medel on 02-28-2024 Basophils/100 WBC (Bld) 0.8 % 0-1 [facility] Bilirubin, totalOrdered By: Jairon Medel on 02-28-2024 Bilirubin [Mass/Vol] 0.20 mg/dL 0.20-1.00 [facility] Comment on above: For patients on eltr ombopag therapy, use of Dimension [place] TBIL is not recommended. Blood urea nitrogen (BUN)/cr eatinine ratioOrdered By: Jairon Medel on 02-28-2024 Urea nitrogen/Creatinine [Mass ratio] 24.1 mg/mg High 10-20 [facility] Carbon dioxide measurementOr dered By: Jairon Medel on 02-28-2024 CO2 [Moles/Vol] 27.0 mmol/L 21.0-32.0 [facility] Chloride measurementOrdered By: Jairon Medel on 02-28-2024 Chloride [Moles/Vol] 111 mmol/L High 98-107 [facility] Eosinophil percentageOrdered By: Jairon Medel on 02-28-2024 Eosinophils/100 WBC (Bld) 2.3 % 0-5 [facility] Erythrocyte distribution wid th (RBC) [Ratio]Ordered By: Jairon Medel on 02-28-2024 Erythrocyte distribution width (RBC) [Entitic vol] 43.7 fL 35.1-43.9 [facility] Erythrocyte distribution wid th ratioOrdered By: Jairon Medel on 02-28-2024 Erythrocyte distribution width (RBC) [Ratio] 13.4 % 11.6-14.6 [facility] Erythrocyte distribution wid th standard deviationOrdered By: Jairon Medel on 02-28-2024 Erythrocyte distribution width (RBC) [Ratio] 43.7 fl 35.1-43.9 [facility] Estimated glomerular filtrat ion rate (GFR) AmericanOrdered By: Jairon Medel on 02-28-2024 Estimated GFR (MDRD) Amer 72 mL/min >60 [facility] Comment on above: GFR Calc Glomerular filtration rate ( GFR) estimationOrdered By: Jairon Medel on 02-28-2024 Estimated GFR (MDRD) Non-Af Amer 59 mL/min Low >60 [facility] Comment on above: Non- GFR Calc GFR/1.73 sq M.predicted among non-blacks MDRD (S/P/Bld) [Vol rate/Area] 59 mL/min/{1.73_m2} Low >60 [facility] Comment on above: Non- GFR Calc Glucose measurementOrdered B y: Jairon Medel on 02-28-2024 Glucose [Mass/Vol] 93 mg/dL 74-106 [facility] Hematocrit Auto (Bld) [Volum e fraction]Ordered By: Poojasreekanthmahadmakenzie Torojenifersophia on 02-28-2024 Hematocrit (Bld) [Volume fraction] 32.1 % Low 37-47 [facility] Hemoglobin measurementOrdere d By: Goldiemakenzie Torojenifersophia on 02-28-2024 Hemoglobin (Bld) [Mass/Vol] 9.9 g/dL Low 12.0-15.0 [facility] High density lipoprotein (HD L) measurementOrdered By: Poojasreekanthmahadmakenzie Torojenifersophia on 02-28-2024 Cholesterol in HDL [Mass/Vol] 58 mg/dL >40 [facility] Comment on above: The drugs N-Acetylcy steine and Metamizole may falsely depress this assay. Reference Range HDL <40 mg/dL Low HDL Cholesterol HDL >or= 60 mg/dL High HDL Cholesterol Immature granulocytes/100 WB C Auto (Bld)Ordered By: Poojamargarette Medel on 02-28-2024 Immature granulocytes/100 WBC (Bld) 0.300 % 0.0-0.9 [facility] Comment on above: IG% - Immature Granu locytes (promyelocytes, myelocytes and metamyelocytes) > 1% indicates that a LEFT SHIFT is Present. Laboratory - Chemistry and C hemistry - challengeOrdered By: Poojamargarette Medel on 02-28-2024 AST [Catalytic activity/Vol] 15 U/L 15-37 [facility] Low density lipoprotein (LDL ) cholesterol measurementOrdered By: Poojasreekanthmahadmakenzie Torojenifersophia on 02-28-2024 Cholesterol in LDL [Mass/Vol] 67 mg/dL 0-130 [facility] Lymphocytes Auto (Unsp spec) [#/Vol]Ordered By: Poojasreekanthmahadmakenzie Torojenifersophia on 02-28-2024 Lymphocytes (Bld) [#/Vol] 1.75 10*3/uL 0.83-4.51 [facility] Lymphocytes/100 WBC Auto (Un sp spec)Ordered By: Jairon Medel on 02-28-2024 Lymphocytes/100 WBC (Bld) 27.3 % 19-41 [facility] MCV (mean corpuscular volume ) determinationOrdered By: Jairon Medel on 02-28-2024 MCV (RBC) [Entitic vol] 89.4 fL 81-99 [facility] Mean corpuscular hemoglobin (MCH) determinationOrdered By: Jairon Medel on 02-28-2024 MCH (RBC) [Entitic mass] 27.6 pg 27.0-32.0 [facility] Mean corpuscular hemoglobin concentration (MCHC) determinationOrdered By: Jairon Medel on 02-28-2024 MCHC (RBC) [Mass/Vol] 30.8 g/dL Low 32-36 [facility] Mean platelet volume determi nationOrdered By: Jairon Medel on 02-28-2024 Platelet mean volume (Bld) [Entitic vol] 9.6 fL 6.2-12.0 [facility] Monocyte percentageOrdered B y: Jairon Medel on 02-28-2024 Monocytes/100 WBC (Bld) 8.7 % 0-10 [facility] Neutrophil percentageOrdered By: Jairon Medel on 02-28-2024 Neutrophils/100 WBC (Bld) 60.6 % 47-70 [facility] Nucleated red blood cell per centageOrdered By: Jairon Medel on 02-28-2024 Nucleated RBC/100 WBC (Bld) [Ratio] 0 % 0-5 [facility] Platelet countOrdered By: Pooja Medel on 02-28-2024 Platelets (Bld) [#/Vol] 261 10*3/uL 150-450 [facility] Potassium measurementOrdered By: Jairon Medel on 02-28-2024 Potassium [Moles/Vol] 4.1 mmol/L 3.5-5.1 [facility] RBC Auto (Bld) [#/Vol]Ordere d By: Jairon Medel on 02-28-2024 RBC (Bld) [#/Vol] 3.59 10*6/uL Low 4.2-5.4 [facility] Serum anion gap measurementO rdered By: Jairno Medel on 02-28-2024 Anion gap [Moles/Vol] 4 mmol/L Low 5-15 [facility] Serum globulin measurementOr dered By: Jairon Medel on 02-28-2024 Globulin (S) [Mass/Vol] 2.9 g/dL 2.2-4.2 [facility] Serum or plasma alanine crane otransferase (ALT) measurementOrdered By: Jairon Medel on 02-28-2024 ALT [Catalytic activity/Vol] 17 U/L 13-56 [facility] Serum or plasma albumin krissy urement (mass/volume)Ordered By: Jairon Medel on 02-28-2024 Albumin [Mass/Vol] 2.8 g/dL Low 3.2-5.0 [facility] Serum or plasma alkaline luis sphatase measurementOrdered By: Jairon Medel on 02-28-2024 ALP [Catalytic activity/Vol] 63 U/L 45-117 [facility] Serum or plasma calcium krissy urement (mass/volume)Ordered By: Jairon Medel on 02-28-2024 Calcium [Mass/Vol] 9.6 mg/dL 8.5-10.1 [facility] Serum or plasma cholesterol measurement (mass/volume)Ordered By: Jairon Medel on 02-28-2024 Cholesterol [Mass/Vol] 134 mg/dL <200 [facility] Comment on above: <200 mg/dL Desirable 200-240 mg/dL Borderline >240 mg/dL High Risk Serum or plasma creatinine m easurement (mass/volume)Ordered By: Jairon Medel on 02-28-2024 Creatinine [Mass/Vol] 0.95 mg/dL 0.55-1.02 [facility] Comment on above: The validity of the calculated GFR & GFRAA in patients over 70 years has not been determined. Clinical correlation is essential. Serum or plasma urea nitroge n measurement (mass/volume)Ordered By: Jairon Medel on 02-28-2024 Urea nitrogen [Mass/Vol] 23 mg/dL High 7-18 [facility] Sodium levelOrdered By: Carrillo Medel on 02-28-2024 Sodium [Moles/Vol] 143 mmol/L 136-145 [facility] Total proteinOrdered By: Masoud Medel on 02-28-2024 Protein [Mass/Vol] 5.7 g/dL Low 6.4-8.2 [facility] Triglycerides measurementOrd ered By: Jairon Medel on 02-28-2024 Triglyceride [Mass/Vol] 43 mg/dL <199 [facility] Comment on above: The drugs N-Acetylcy steine and Metamizole may falsely depress this assay.Serum Triglycerides Reference Interval Normal <150 mg/dL Borderline high 150 - 199 mg/dL High 200 - 499 mg/dL Very High > or = 500 mg/dL Valproate levelOrdered By: Sophia Medel on 02-28-2024 Valproic Acid (Depakene) Level 26 ug/mL Low 50-100 [facility] Very low density lipoprotein (VLDL) cholesterol measurementOrdered By: Jairon Medel on 02-28-2024 Very low density lipoprotein (VLDL) cholesterol measurement 9 mg/dL 5-40 [facility] VLDL Cholesterol 9 mg/dL 5-40 [facility] White blood cell (WBC) count Ordered By: Jairon Cortezdorcas on 02-28-2024 WBC (Bld) [#/Vol] 6.4 10*3/uL 4.4-11.0 [facility] .Auto Diffon 02-10-2024 Basophil, Absolute 0.1 10 3/mcL Normal 0.0-0.2 [facility] Comment on above: Performed By: #### B MP, MG, ANEU, ADIFF, CBC, GFR ####[address] [place], [place] [address] Basophils/100 WBC (Bld) 1.1 % Normal 0.0-2.5 [facility] Comment on above: Performed By: #### B MP, MG, ANEU, ADIFF, CBC, GFR ####[address] [place], [place] [address] Eosinophil, Absolute 0.1 10 3/mcL Normal 0.0-0.7 [facility] Comment on above: Performed By: #### B MP, MG, ANEU, ADIFF, CBC, GFR ####[facility] [place], [place] [address] Eosinophils/100 WBC (Bld) 1.8 % Normal 0.0-7.0 [facility] Comment on above: Performed By: #### B MP, MG, ANEU, ADIFF, CBC, GFR ####[place] [address] [address] Lymphocyte, Absolute 1.4 10 3/mcL Normal 0.9-4.3 [facility] Comment on above: Performed By: #### B MP, MG, ANEU, ADIFF, CBC, GFR ####[address] [address] Lymphocytes/100 WBC (Bld) 25.4 % Normal 20.0-40.0 [facility] Comment on above: Performed By: #### B MP, MG, ANEU, ADIFF, CBC, GFR ####[address] [address] Monocyte, Absolute 0.4 10 3/mcL Normal 0.1-1.4 [facility] Comment on above: Performed By: #### B MP, MG, ANEU, ADIFF, CBC, GFR ####[address] [address] Monocytes/100 WBC (Bld) 7.4 % Normal 2.0-13.0 [facility] Comment on above: Performed By: #### B MP, MG, ANEU, ADIFF, CBC, GFR ####[address] [address] Neutrophils/100 WBC (Bld) 64.3 % Normal 50.0-75.0 [facility] Comment on above: Performed By: #### B MP, MG, ANEU, ADIFF, CBC, GFR ####[address] [address] .GFRon 02-10-2024 GFR 73 ml/min/1.73sqm Normal [facility] Comment on above: Result Comment: GFR [...] B MP, MG, ANEU, ADIFF, CBC, GFR ####[place] [address] [place], [place] [address] GFR Non- 60 ml/min/1.73sqm Normal [facility] Comment on above: Result Comment: GFR [...] B MP, MG, ANEU, ADIFF, CBC, GFR ####[facility] [place], [place] [address] .NEUABSon 02-10-2024 Neutrophil, Absolute 3.7 10 3/mcL Normal 2.3-8.1 [facility] Comment on above: Performed By: #### B MP, MG, ANEU, ADIFF, CBC, GFR ####[facility] [place], [place] [address] BMPon 02-10-2024 BUN/Creatinine Ratio 25 ratio Normal 7-27 [facility] Comment on above: Performed By: #### B MP, MG, ANEU, ADIFF, CBC, GFR ####[address] [place], [place] [address] Calcium [Mass/Vol] 10.0 mg/dL Normal 8.4-10.2 [facility] Comment on above: Performed By: #### B MP, MG, ANEU, ADIFF, CBC, GFR ####[address] [place] [id number] Chloride [Moles/Vol] 107 mmol/L Normal 98-107 [facility] Comment on above: Performed By: #### B MP, MG, ANEU, ADIFF, CBC, GFR ####[address] [place] [id number] CO2 [Moles/Vol] 30 mmol/L Normal 23-31 [facility] Comment on above: Performed By: #### B MP, MG, ANEU, ADIFF, CBC, GFR ####[address] [place] [id number] Creatinine [Mass/Vol] 0.89 mg/dL Normal 0.55-1.02 [facility] Comment on above: Result Comment: Test ing performed on Siemens Dimension EXL analyzer using a modified kinetic Dora technique. Performed By: #### B MP, MG, ANEU, ADIFF, CBC, GFR ####[place] [address] [address] Electrolyte Balance 8.0 mEq/L Normal 4.0-15.0 [facility] Comment on above: Performed By: #### B MP, MG, ANEU, ADIFF, CBC, GFR ####[address] [place] [id number] Glucose [Mass/Vol] 111 mg/dL High 83-110 [facility] Comment on above: Performed By: #### B MP, MG, ANEU, ADIFF, CBC, GFR ####[address] [place], [place] [address] Potassium [Moles/Vol] 4.0 mmol/L Normal 3.5-5.1 [facility] Comment on above: Performed By: #### B MP, MG, ANEU, ADIFF, CBC, GFR ####[address] [place], [place] [address] Sodium [Moles/Vol] 145 mmol/L Normal 136-145 [facility] Comment on above: Performed By: #### B MP, MG, ANEU, ADIFF, CBC, GFR ####[place] [place] [address] Urea nitrogen [Mass/Vol] 22 mg/dL High 7-18 [facility] Comment on above: Performed By: #### B MP, MG, ANEU, ADIFF, CBC, GFR ####[place] [address] [address] CBCon 02-10-2024 Erythrocyte distribution width (RBC) [Ratio] 14.1 % Normal 11.5-15.5 [facility] Comment on above: Performed By: #### B MP, MG, ANEU, ADIFF, CBC, GFR ####[address] [place] [address] Hematocrit (Bld) [Volume fraction] 33.2 % Low 34.0-46.0 [facility] Comment on above: Performed By: #### B MP, MG, ANEU, ADIFF, CBC, GFR ####[address] [address] [address] Hgb 11.3 G/dL Low 12.0-16.0 [facility] Comment on above: Performed By: #### B MP, MG, ANEU, ADIFF, CBC, GFR ####[address] [address] MCH (RBC) [Entitic mass] 28.8 pg Normal 27.0-33.0 [facility] Comment on above: Performed By: #### B MP, MG, ANEU, ADIFF, CBC, GFR ####[address] [place], [place] [address] MCHC 34.1 G/dL Normal 32.0-36.0 [facility] Comment on above: Performed By: #### B MP, MG, ANEU, ADIFF, CBC, GFR ####[address] [place], [place] [address] MCV (RBC) [Entitic vol] 84.5 fL Normal 80.0-99.0 [facility] Comment on above: Performed By: #### B MP, MG, ANEU, ADIFF, CBC, GFR ####[address] [place], [place] [address] Platelet 272 10 3/mcL Normal 150-450 [facility] Comment on above: Performed By: #### B MP, MG, ANEU, ADIFF, CBC, GFR ####[address] [place], [place] [address] Platelet mean volume (Bld) [Entitic vol] 7.7 fL Normal 6.6-10.5 [facility] Comment on above: Performed By: #### B MP, MG, ANEU, ADIFF, CBC, GFR ####[address] [place], [place] [address] RBC 3.93 10 6/mcL Low 4.10-5.30 [facility] Comment on above: Performed By: #### B MP, MG, ANEU, ADIFF, CBC, GFR ####[address] [place], [place] [address] WBC 5.7 10 3/mcL Normal 4.5-10.8 [facility] Comment on above: Performed By: #### B MP, MG, ANEU, ADIFF, CBC, GFR ####[address] [place], [place] [address] LABORATORYOrdered By: SYSTEM SYSTEM on 02-10-2024 Basophils [...] 02-10-2024 Magnesium [Mass/Vol] 1.7 mg/dL Low 1.8-2.4 [facility] Comment on above: Performed By: #### B MP, MG, ANEU, ADIFF, CBC, GFR ####[address] [place], [place] [address] .Auto Diffon 02-09-2024 Basophil, Absolute 0.1 10 3/mcL Normal 0.0-0.2 [facility] Comment on above: Performed By: #### B JEISON, MDW, GFR, ANEU, TROPHS, PBNP, CBC, ADIFF ####[address] [place], [place] [address] Basophils/100 WBC (Bld) 1.1 % Normal 0.0-2.5 [facility] Comment on above: Performed By: #### B MP, MDW, GFR, ANEU, TROPHS, PBNP, CBC, ADIFF ####[address] [place], [place] [address] Eosinophil, Absolute 0.1 10 3/mcL Normal 0.0-0.7 [facility] Comment on above: Performed By: #### B MP, MDW, GFR, ANEU, TROPHS, PBNP, CBC, ADIFF ####[address] [place], [place] [address] Eosinophils/100 WBC (Bld) 1.6 % Normal 0.0-7.0 [facility] Comment on above: Performed By: #### B NAFISA MCHUGH, GFR, ANEU, TROPHS, PBNP, CBC, ADIFF ####[place] [address] [place], [place] [address] Lymphocyte, Absolute 2.2 10 3/mcL Normal 0.9-4.3 [facility] Comment on above: Performed By: #### B JEISON, NAFISA, GFR, ANEU, TROPHS, PBNP, CBC, ADIFF ####[facility] [place], [place] [address] Lymphocytes/100 WBC (Bld) 29.4 % Normal 20.0-40.0 [facility] Comment on above: Performed By: #### B JEISON, NAFISA, GFR, ANEU, TROPHS, PBNP, CBC, ADIFF ####[place] [address] [place], [place] [address] Monocyte, Absolute 0.7 10 3/mcL Normal 0.1-1.4 [facility] Comment on above: Performed By: #### B NAFISA MCHUGH, GFR, ANEU, TROPHS, PBNP, CBC, ADIFF ####[address] [address] Monocytes/100 WBC (Bld) 9.6 % Normal 2.0-13.0 [facility] Comment on above: Performed By: #### B NAFISA MCHUGH, GFR, ANEU, TROPHS, PBNP, CBC, ADIFF ####[place] [address] [place], [place] [address] Neutrophils/100 WBC (Bld) 58.3 % Normal 50.0-75.0 [facility] Comment on above: Performed By: #### B NAFISA MCHUGH, GFR, ANEU, TROPHS, PBNP, CBC, ADIFF ####[facility] [place], [place] [address] .GFRon 02-09-2024 GFR 67 ml/min/1.73sqm Normal [facility] Comment on above: Result Comment: GFR [...] ANEU, TROPHS, PBNP, CBC, ADIFF ####[address] [place], [place] [address] GFR Non- 55 ml/min/1.73sqm Normal [facility] Comment on above: Result Comment: GFR [...] ANEU, TROPHS, PBNP, CBC, ADIFF ####[address] [place], [place] [address] .MDWon 02-09-2024 Monocyte Distribution Width 17.09 Normal 0.00-20.00 [facility] Comment on above: Result Comment: For ED adult patients suspected of sepsis, MDW<=20.0 does not rule out sepsis or risk of sepsis Performed By: #### B MP, MDW, GFR, ANEU, TROPHS, PBNP, CBC, ADIFF ####[address] [address] [place], [place] [address] .NEUABSon 02-09-2024 Neutrophil, Absolute 4.4 10 3/mcL Normal 2.3-8.1 [facility] Comment on above: Performed By: #### B NAFISA MCHUGH, GFR, ANEU, TROPHS, PBNP, CBC, ADIFF ####[place] [address] [place], [place] [address] BMPon 02-09-2024 BUN/Creatinine Ratio 26 ratio Normal 7-27 [facility] Comment on above: Performed By: #### B NAFISA MCHUGH, GFR, ANEU, TROPHS, PBNP, CBC, ADIFF ####[place] [address] [place] [address] Calcium [Mass/Vol] 10.4 mg/dL High 8.4-10.2 [facility] Comment on above: Performed By: #### B NAFISA MCHUGH, GFR, ANEU, TROPHS, PBNP, CBC, ADIFF ####[place] [address] [place] [phone] Chloride [Moles/Vol] 104 mmol/L Normal 98-107 [facility] Comment on above: Performed By: #### B NAFISA MCHUGH, GFR, ANEU, TROPHS, PBNP, CBC, ADIFF ####[place] [address] [place] [id number] CO2 [Moles/Vol] 30 mmol/L Normal 23-31 [facility] Comment on above: Performed By: #### B NAFISA MCHUGH, GFR, ANEU, TROPHS, PBNP, CBC, ADIFF ####[address] [place] [phone] Creatinine [Mass/Vol] 0.96 mg/dL Normal 0.55-1.02 [facility] Comment on above: Result Comment: Test ing performed on [employer] Dimension EXL analyzer using a modified kinetic Dora technique. Performed By: #### B NAFISA MCHUGH, GFR, ANEU, TROPHS, PBNP, CBC, ADIFF ####[facility] [place] [id number] Electrolyte Balance 10.0 mEq/L Normal 4.0-15.0 [facility] Comment on above: Performed By: #### B JEISON, NAFISA, GFR, ANEU, TROPHS, PBNP, CBC, ADIFF ####[place] [place], [place] [address] Glucose [Mass/Vol] 108 mg/dL Normal 83-110 [facility] Comment on above: Performed By: #### B NAFISA MCHUGH, GFR, ANEU, TROPHS, PBNP, CBC, ADIFF ####[address] [place], [place] [address] Potassium [Moles/Vol] 3.6 mmol/L Normal 3.5-5.1 [facility] Comment on above: Performed By: #### B NAFISA MCHUGH, GFR, ANEU, TROPHS, PBNP, CBC, ADIFF ####[address] [place], [place] [address] Sodium [Moles/Vol] 144 mmol/L Normal 136-145 [facility] Comment on above: Performed By: #### B NAFISA MCHUGH, GFR, ANEU, TROPHS, PBNP, CBC, ADIFF ####[address] [place], [place] [address] Urea nitrogen [Mass/Vol] 25 mg/dL High 7-18 [facility] Comment on above: Performed By: #### B NAFISA MCHUGH, GFR, ANEU, TROPHS, PBNP, CBC, ADIFF ####[address] [place], [place] [address] CBCon 02-09-2024 Erythrocyte distribution width (RBC) [Ratio] 14.0 % Normal 11.5-15.5 [facility] Comment on above: Performed By: #### B NAFISA MCHUGH, GFR, ANEU, TROPHS, PBNP, CBC, ADIFF ####[place] [address] [place], [place] [address] Hematocrit (Bld) [Volume fraction] 34.7 % Normal 34.0-46.0 [facility] Comment on above: Performed By: #### B NAFISA MCHUGH, GFR, ANEU, TROPHS, PBNP, CBC, ADIFF ####[place] [address] [place], [place] [address] Hgb 11.7 G/dL Low 12.0-16.0 [facility] Comment on above: Performed By: #### B JEISON, NAFISA, GFR, ANEU, TROPHS, PBNP, CBC, ADIFF ####[address] [place], [place] [address] MCH (RBC) [Entitic mass] 28.7 pg Normal 27.0-33.0 [facility] Comment on above: Performed By: #### B JEISON, NAFISA, GFR, ANEU, TROPHS, PBNP, CBC, ADIFF ####[address] [place], [place] [address] MCHC 33.7 G/dL Normal 32.0-36.0 [facility] Comment on above: Performed By: #### B JEISON, NAFISA, GFR, ANEU, TROPHS, PBNP, CBC, ADIFF ####[id number] [place], [place] [address] MCV (RBC) [Entitic vol] 85.0 fL Normal 80.0-99.0 [facility] Comment on above: Performed By: #### B NAFISA MCHUGH, GFR, ANEU, TROPHS, PBNP, CBC, ADIFF ####[id number] [place], [place] [address] Platelet 266 10 3/mcL Normal 150-450 [facility] Comment on above: Performed By: #### B NAFISA MCHUGH, GFR, ANEU, TROPHS, PBNP, CBC, ADIFF ####[id number] [place], [place] [address] Platelet mean volume (Bld) [Entitic vol] 7.4 fL Normal 6.6-10.5 [facility] Comment on above: Performed By: #### B NAFISA MCHUGH, GFR, ANEU, TROPHS, PBNP, CBC, ADIFF ####[id number] [place], [place] [address] RBC 4.08 10 6/mcL Low 4.10-5.30 [facility] Comment on above: Performed By: #### B NAFISA MCHUGH, GFR, ANEU, TROPHS, PBNP, CBC, ADIFF ####[address] [place], [place] [address] WBC 7.6 10 3/mcL Normal 4.5-10.8 [facility] Comment on above: Performed By: #### B NAFISA MCHUGH, GFR, ANEU, TROPHS, PBNP, CBC, ADIFF ####[address] [place], [place] [address] LABORATORYOrdered By: Addis Pelayo on 02-09-2024 Appearance [...] ng/L Male: 0-76 ng/L Testing performed on DVTel using a homogeneous sandwich chemiluminescent immunoassay based on [employer] technology. Urea nitrogen [Mass/Vol] 25 mg/dL High 7 - 18 mg/dL AO ADM SS Urea nitrogen/Creatinine [Mass ratio] 26 ratio Normal 7 - 27 ratio AO ADM SS WBC (Bld) [#/Vol] 7.6 103/mcL Normal 4.5 - 10.8 10^3/mcL AO Workflow SS PBNPon 02-09-2024 Natriuretic peptide B (Bld) [Mass/Vol] 3243 pg/mL High 0-450 [facility] Comment on above: Result Comment: NT-p roBNP results of less than 300 pg/mL effectively rules out acute congestive heart failure with 99% negative predictive value. Performed By: #### B MP, MDW, GFR, ANEU, TROPHS, PBNP, CBC, ADIFF ####[place] [address] TROPHSon 02-09-2024 High Sensitivity Troponin I 23 ng/L Normal 0-51 [facility] Comment on above: Result Comment: High Sensitive Troponin I Reference Ranges: Female: 0-51 ng/L Male: 0-76 ng/L Testing performed on DVTel using a homogeneous sandwich chemiluminescent immunoassay based on [employer] technology. Performed By: #### B MP, MDW, GFR, ANEU, TROPHS, PBNP, CBC, ADIFF ####[address] [place] [id number] UAon 02-09-2024 Color (U) Yellow Normal [facility] Comment on above: Performed By: #### U A ####[place] [address] [place] [address] Glucose (U) [Mass/Vol] Negative Normal Negative [facility] Comment on above: Performed By: #### U A ####[address] [place] [address] Ketones Ql (U) Negative Normal Negative [facility] Comment on above: Performed By: #### U A ####[address] [place] [address] UA Appear Clear Normal Clear [facility] Comment on above: Performed By: #### U A ####[place] [address] [place] [address] UA Blood Negative Normal Negative [facility] Comment on above: Performed By: #### U A ####[address] [place] [address] UA Leuk Est Negative Normal Negative [facility] Comment on above: Performed By: #### U A ####[address] [place] [address] UA Nitrite Negative Normal Negative [facility] Comment on above: Performed By: #### U A ####[address] [place] [address] UA pH 6.5 Normal 5.0 - 8.0 [facility] Comment on above: Performed By: #### U A ####[address] [address] UA Protein Negative Normal Negative [facility] Comment on above: Performed By: #### U A ####[place] [address] [place], [place] [address] UA Spec Grav 1.015 Normal 1.015-1.025 [facility] Comment on above: Performed By: #### U A ####[place] [address] [place] [address] UA Specimen Type Void Normal [facility] Comment on above: Performed By: #### U A ####[facility] [place] [address] UA Urobilinogen 0.2 E.U./dL Normal 0.2-1.0 [facility] Comment on above: Performed By: #### U A ####[facility] [place] [address] Urobilinogen (U) [Mass/Vol] Negative Normal Negative [facility] Comment on above: Performed By: #### U A ####[facility] [place] [address] VALPRon 02-09-2024 LDose Valproic Acid: Unknown Normal [facility] Comment on above: Performed By: #### V ALPR ####[facility] [place] [address] Valproic Acid Lvl 30 mcg/mL Low 50-100 [facility] Comment on above: Performed By: #### V ALPR ####[facility] [place] [id number] XR CHEST 1 VIEWon 02-09-2024 XR CHEST [...] 9:08:10 PM Ordering Provider: TRIXIE BARONE Normal [facility] .Urinalysis Microscopic (AO) on 01-21-2024 UA Amorphus 1+ /hpf Normal [facility] Comment on above: Performed By: #### U A, UAMICAO ####[place] [address] UA CA Ox Crystal 1+ /hpf Normal [facility] Comment on above: Performed By: #### U A, UAMICAO ####[place] [address] UA Mucous 2+ /hpf Normal [facility] Comment on above: Performed By: #### U A, UAMICAO ####[place] [address] UA RBC 0-5 Abnormal None Seen [facility] Comment on above: Performed By: #### U A, UAMICAO ####[place] [address] UA Squam Epithelial 0-5 Abnormal None Seen [facility] Comment on above: Performed By: #### U A, UAMICAO ####[place] [address] UA WBC 0-5 Abnormal None Seen [facility] Comment on above: Performed By: #### U A, UAMICAO ####[place] [address] LABORATORYOrdered By: Mao Nava on 01-21-2024 Appearance [...] SS UAon 01-21-2024 Color (U) Yellow Normal [facility] Comment on above: Performed By: #### U A, UAMICAO ####[facility] [place], [place] [address] Glucose (U) [Mass/Vol] Negative Normal Negative [facility] Comment on above: Performed By: #### U A, UAMICAO ####[address] [place], [place] [address] Ketones Ql (U) Negative Normal Negative [facility] Comment on above: Performed By: #### U A, UAMICAO ####[address] [place] [address] UA Appear Clear Normal Clear [facility] Comment on above: Performed By: #### U A, UAMICAO ####[address] [place] [address] UA Blood Negative Normal Negative [facility] Comment on above: Performed By: #### U A, UAMICAO ####[address] [place] [address] UA Leuk Est Negative Normal Negative [facility] Comment on above: Performed By: #### U A, UAMICAO ####[address] [place] [address] UA Nitrite Negative Normal Negative [facility] Comment on above: Performed By: #### U A, UAMICAO ####[address] [place] [address] UA pH 6.0 Normal 5.0 - 8.0 [facility] Comment on above: Performed By: #### U A, UAMICAO ####[address] [place] [address] UA Protein 30 mg/dL Normal Negative [facility] Comment on above: Performed By: #### U A, UAMICAO ####[address] [place] [address] UA Spec Grav 1.020 Normal 1.015-1.025 [facility] Comment on above: Performed By: #### U A, UAMICAO ####[address] [place] [address] UA Specimen Type Hua Catheter Normal [facility] Comment on above: Performed By: #### U A, UAMICAO ####[address] [place] [address] UA Urobilinogen 0.2 E.U./dL Normal 0.2-1.0 [facility] Comment on above: Performed By: #### U A, UAMICAO ####[address] [place] [id number] Urobilinogen (U) [Mass/Vol] Negative Normal Negative [facility] Comment on above: Performed By: #### U KRISHNA Jeter ####[facility] [place], [place] [address] US BLADDERon 01-07-2024 US BLADDER ORIGINAL EXAMINATION: [...] 01/07/2024 11:24:46 AM Ordering Provider: LARRY Geronimo [facility] .GFRon 12-29-2023 GFR 54 ml/min/1.73sqm [facility] Comment on above: Result Comment: GFR Population [...] Performed By: #### G LINDA SPAULDING CAION ####[place] [address] [place], [place] [address] GFR Non- 44 ml/min/1.73sqm [facility] Comment on above: Result Comment: GFR Population [...] 15 mL/min/1.73 square meters Performed By: #### LINDA SOLIS CAION ####[address] [place], [place] [address] BMPon 12-29-2023 BUN/Creatinine Ratio 20 ratio Normal 7-27 [facility] Comment on above: Performed By: #### LINDA SOLIS CAION ####[address] [place], [place] [address] Calcium [Mass/Vol] 10.3 mg/dL High 8.4-10.2 [facility] Comment on above: Performed By: #### LINDA SOLIS CAION ####[address] [place], [place] [address] Chloride [Moles/Vol] 104 mmol/L Normal 98-107 [facility] Comment on above: Performed By: #### LINDA SOLIS CAION ####[address] [place], [place] [address] CO2 [Moles/Vol] 31 mmol/L Normal 23-31 [facility] Comment on above: Performed By: #### LINDA SOLIS CAION ####[place] [address] [place], [place] [address] Creatinine [Mass/Vol] 1.16 mg/dL High 0.55-1.02 [facility] Comment on above: Result Comment: Test ing performed on Siemens Dimension EXL analyzer using a modified kinetic Dora technique. Performed By: #### LINDA SOLIS CAION ####[address] [place], [place] [address] Electrolyte Balance 7.0 mEq/L Normal 4.0-15.0 [facility] Comment on above: Performed By: #### LINDA SOLIS CAION ####[address] [place], [place] [address] Glucose [Mass/Vol] 92 mg/dL Normal 83-110 [facility] Comment on above: Performed By: #### LINDA SOLIS CAION ####[address] [place], [place] [address] Potassium [Moles/Vol] 4.2 mmol/L Normal 3.5-5.1 [facility] Comment on above: Performed By: #### LINDA SOLIS CAION ####[address] [place], [place] [address] Sodium [Moles/Vol] 142 mmol/L Normal 136-145 [facility] Comment on above: Performed By: #### LINDA SOLIS CAION ####[address] [place], [place] [address] Urea nitrogen [Mass/Vol] 23 mg/dL High 7-18 [facility] Comment on above: Performed By: #### LINDA SOLIS CAION ####[address] [place], [place] [address] CAIONon 12-29-2023 Calcium Ionized 1.27 mmol/L Normal 1.12-1.32 [facility] Comment on above: Performed By: #### LINDA SOLIS CAION ####[address] [place], [place] [address] LABORATORYOrdered By: SYSTEM SYSTEM on 12-29-2023 Calcium [...] 12/21/2023 4:21:17 PM Ordering Provider: LARRY Geronimo [facility] XR SPINE LUMBAR W/OBLIQUES 4 VIEWSon [...] 12/21/2023 4:34:05 PM Ordering Provider: LARRY Geronimo [facility] B12on 12-16-2023 Cobalamin (Vitamin B12) [Mass/Vol] 509 pg/mL Normal 211-911 [facility] Comment on above: Performed By: #### F ES, FERR ####[place] [address]#### B12, FOL ####[place] [address] FOLon 12-16-2023 Folate >48.00 High 5.38-24.00 [facility] Comment on above: Performed By: #### F ES, FERR ####[place] [address]#### B12, FOL ####[place] [address] .Auto Diffon 12-15-2023 Basophil, Absolute 0.1 10 3/mcL Normal 0.0-0.2 [facility] Comment on above: Performed By: #### C MP, ADIFF, CBC, GFR, PBNP, ANEU #### [address] [address] Basophils/100 WBC (Bld) 1.1 % Normal 0.0-2.5 [facility] Comment on above: Performed By: #### C MP, ADIFF, CBC, GFR, PBNP, ANEU #### [address] [address] Eosinophil, Absolute 0.1 10 3/mcL Normal 0.0-0.7 [facility] Comment on above: Performed By: #### C MP, ADIFF, CBC, GFR, PBNP, ANEU #### [address] [address] Eosinophils/100 WBC (Bld) 1.4 % Normal 0.0-7.0 [facility] Comment on above: Performed By: #### C MP, ADIFF, CBC, GFR, PBNP, ANEU #### [address] [address] Lymphocyte, Absolute 1.7 10 3/mcL Normal 0.9-4.3 [facility] Comment on above: Performed By: #### C MP, ADIFF, CBC, GFR, PBNP, ANEU #### [address] [address] Lymphocytes/100 WBC (Bld) 20.9 % Normal 20.0-40.0 [facility] Comment on above: Performed By: #### C MP, ADIFF, CBC, GFR, PBNP, ANEU #### [address] [address] Monocyte, Absolute 0.5 10 3/mcL Normal 0.1-1.4 [facility] Comment on above: Performed By: #### C MP, ADIFF, CBC, GFR, PBNP, ANEU #### [address] [address] Monocytes/100 WBC (Bld) 6.0 % Normal 2.0-13.0 [facility] Comment on above: Performed By: #### C MP, ADIFF, CBC, GFR, PBNP, ANEU #### [address] [address] Neutrophils/100 WBC (Bld) 70.6 % Normal 50.0-75.0 [facility] Comment on above: Performed By: #### C MP, ADIFF, CBC, GFR, PBNP, ANEU #### [address] [address] .GFRon 12-15-2023 GFR 62 ml/min/1.73sqm Normal [facility] Comment on above: Result Comment: GFR [...] MP, ADIFF, CBC, GFR, PBNP, ANEU #### [address] [address] GFR Non- 52 ml/min/1.73sqm Normal [facility] Comment on above: Result Comment: GFR [...] MP, ADIFF, CBC, GFR, PBNP, ANEU #### [address] [address] .NEUABSon 12-15-2023 Neutrophil, Absolute 5.8 10 3/mcL Normal 2.3-8.1 [facility] Comment on above: Performed By: #### C MP, ADIFF, CBC, GFR, PBNP, ANEU #### [address] [address] CBCon 12-15-2023 Erythrocyte distribution width (RBC) [Ratio] 14.2 % Normal 11.5-15.5 [facility] Comment on above: Performed By: #### C MP, ADIFF, CBC, GFR, PBNP, ANEU #### [address] [address] Hematocrit (Bld) [Volume fraction] 34.6 % Normal 34.0-46.0 [facility] Comment on above: Performed By: #### C MP, ADIFF, CBC, GFR, PBNP, ANEU #### [address] [address] Hgb 11.7 G/dL Low 12.0-16.0 [facility] Comment on above: Performed By: #### C MP, ADIFF, CBC, GFR, PBNP, ANEU #### [address] [address] MCH (RBC) [Entitic mass] 28.7 pg Normal 27.0-33.0 [facility] Comment on above: Performed By: #### C MP, ADIFF, CBC, GFR, PBNP, ANEU #### [address] [address] MCHC 33.9 G/dL Normal 32.0-36.0 [facility] Comment on above: Performed By: #### C MP, ADIFF, CBC, GFR, PBNP, ANEU #### [address] [address] MCV (RBC) [Entitic vol] 84.8 fL Normal 80.0-99.0 [facility] Comment on above: Performed By: #### C MP, ADIFF, CBC, GFR, PBNP, ANEU #### [address] [address] Platelet 363 10 3/mcL Normal 150-450 [facility] Comment on above: Performed By: #### C MP, ADIFF, CBC, GFR, PBNP, ANEU #### [address] [address] Platelet mean volume (Bld) [Entitic vol] 7.4 fL Normal 6.6-10.5 [facility] Comment on above: Performed By: #### C MP, ADIFF, CBC, GFR, PBNP, ANEU #### [address] [address] RBC 4.08 10 6/mcL Low 4.10-5.30 [facility] Comment on above: Performed By: #### C MP, ADIFF, CBC, GFR, PBNP, ANEU #### [address] [address] WBC 8.3 10 3/mcL Normal 4.5-10.8 [facility] Comment on above: Performed By: #### C MP, ADIFF, CBC, GFR, PBNP, ANEU #### [address] [address] CMPon 12-15-2023 Albumin Level 3.9 G/dL Normal 3.4-4.8 [facility] Comment on above: Performed By: #### C MP, ADIFF, CBC, GFR, PBNP, ANEU #### [address] [address] Albumin/Globulin [Mass ratio] 1.4 {ratio} Normal 1.1-2.5 [facility] Comment on above: Performed By: #### C MP, ADIFF, CBC, GFR, PBNP, ANEU #### [address] [address] ALP [Catalytic activity/Vol] 72 U/L Normal 40-135 [facility] Comment on above: Performed By: #### C MP, ADIFF, CBC, GFR, PBNP, ANEU #### [address] [address] ALT [Catalytic activity/Vol] 26 U/L Normal 14-59 [facility] Comment on above: Performed By: #### C MP, ADIFF, CBC, GFR, PBNP, ANEU #### [address] [address] AST [Catalytic activity/Vol] 18 U/L Normal 10-40 [facility] Comment on above: Performed By: #### C MP, ADIFF, CBC, GFR, PBNP, ANEU #### [address] [address] Bili Total 0.4 mg/dL Normal 0.2-1.0 [facility] Comment on above: Result Comment: Use of this assay is not recommended for patients undergoing treatment with eltrombopag due to the potential for falsely elevated results. Performed By: #### C MP, ADIFF, CBC, GFR, PBNP, ANEU #### [address] [address] BUN/Creatinine Ratio 20 ratio Normal 7-27 [facility] Comment on above: Performed By: #### C MP, ADIFF, CBC, GFR, PBNP, ANEU #### [address] [address] Calcium [Mass/Vol] 10.8 mg/dL High 8.4-10.2 [facility] Comment on above: Performed By: #### C MP, ADIFF, CBC, GFR, PBNP, ANEU #### [address] [address] Chloride [Moles/Vol] 104 mmol/L Normal 98-107 [facility] Comment on above: Performed By: #### C MP, ADIFF, CBC, GFR, PBNP, ANEU #### [address] [address] CO2 [Moles/Vol] 30 mmol/L Normal 23-31 [facility] Comment on above: Performed By: #### C MP, ADIFF, CBC, GFR, PBNP, ANEU #### [address] [address] Creatinine [Mass/Vol] 1.02 mg/dL Normal 0.55-1.02 [facility] Comment on above: Result Comment: Test ing performed on [employer] Dimension EXL analyzer using a modified kinetic Dora technique. Performed By: #### C MP, ADIFF, CBC, GFR, PBNP, ANEU #### [address] [address] Electrolyte Balance 7.0 mEq/L Normal 4.0-15.0 [facility] Comment on above: Performed By: #### C MP, ADIFF, CBC, GFR, PBNP, ANEU #### [address] [address] Globulin 2.8 G/dL Normal [facility] Comment on above: Performed By: #### C MP, ADIFF, CBC, GFR, PBNP, ANEU #### [address] [address] Glucose [Mass/Vol] 105 mg/dL Normal 83-110 [facility] Comment on above: Performed By: #### C MP, ADIFF, CBC, GFR, PBNP, ANEU #### [address] [address] Potassium [Moles/Vol] 4.2 mmol/L Normal 3.5-5.1 [facility] Comment on above: Performed By: #### C MP, ADIFF, CBC, GFR, PBNP, ANEU #### [address] [address] Sodium [Moles/Vol] 141 mmol/L Normal 136-145 [facility] Comment on above: Performed By: #### C MP, ADIFF, CBC, GFR, PBNP, ANEU #### [address] [address] Total Protein 6.7 G/dL Normal 6.4-8.2 [facility] Comment on above: Performed By: #### C MP, ADIFF, CBC, GFR, PBNP, ANEU #### [address] [address] Urea nitrogen [Mass/Vol] 20 mg/dL High 7-18 [facility] Comment on above: Performed By: #### C MP, ADIFF, CBC, GFR, PBNP, ANEU #### [address] [address] Lucretia 12-15-2023 Ferritin [Mass/Vol] 197.0 ng/mL Normal 8.0-252.0 [facility] Comment on above: Performed By: #### F ES, FERR ####[facility] [place], [place] [address]#### B12, FOL ####[place] [address] FESon 12-15-2023 Iron [Mass/Vol] 44 ug/dL Low 50-170 [facility] Comment on above: Performed By: #### F ES, FERR ####[address] [address]#### B12, FOL ####[place] [address] Iron Sat 15 % Normal [facility] Comment on above: Performed By: #### F ES, FERR ####[address] [address]#### B12, FOL ####[place] [address] TIBC 300 mcg/dL Normal 250-450 [facility] Comment on above: Performed By: #### F ES, FERR ####[address] [address]#### B12, FOL ####[place] [address] LABORATORYOrdered By: SYSTEM SYSTEM on 12-15-2023 Albumin [...] above: Interpretive Data: T esting performed on [employer] Dimension EXL analyzer using a modified kinetic [...] Culture Urine No growth at 48 hours. [facility] PBNPon 12-15-2023 Natriuretic peptide B (Bld) [Mass/Vol] 1968 pg/mL High 0-450 [facility] Comment on above: Result Comment: NT-p roBNP results of less than 300 pg/mL effectively rules out acute congestive heart failure with 99% negative predictive value. Performed By: #### C MP, ADIFF, CBC, GFR, PBNP, ANEU ####[address] [place], [place] [address] LABORATORYOrdered By: Domingo Masterson on 12-09-2023 Appearance [...] SS UAon 12-09-2023 Color (U) Yellow Normal [facility] Comment on above: Performed By: #### U A ####[address] [place], [place] [address] Glucose (U) [Mass/Vol] Negative Normal Negative [facility] Comment on above: Performed By: #### U A ####[address] [place], [place] [address] Ketones Ql (U) Negative Normal Negative [facility] Comment on above: Performed By: #### U A ####[address] [place], [place] [address] UA Appear Clear Normal Clear [facility] Comment on above: Performed By: #### U A ####[address] [place], [place] [address] UA Blood Negative Normal Negative [facility] Comment on above: Performed By: #### U A ####[address] [place] [address] UA Leuk Est Negative Normal Negative [facility] Comment on above: Performed By: #### U A ####[address] [place] [address] UA Nitrite Negative Normal Negative [facility] Comment on above: Performed By: #### U A ####[address] [place] [address] UA pH 7.5 Normal 5.0 - 8.0 [facility] Comment on above: Performed By: #### U A ####[address] [place] [address] UA Protein Negative Normal Negative [facility] Comment on above: Performed By: #### U A ####[address] [place] [address] UA Spec Grav 1.020 Normal 1.015-1.025 [facility] Comment on above: Performed By: #### U A ####[place] [address] [address] UA Specimen Type Clean Catch Normal [facility] Comment on above: Performed By: #### U A ####[address] [place] [address] UA Urobilinogen 0.2 E.U./dL Normal 0.2-1.0 [facility] Comment on above: Performed By: #### U A ####[address] [place] [address] Urobilinogen (U) [Mass/Vol] Negative Normal Negative [facility] Comment on above: Performed By: #### U A ####[address] [place] [address] XR HIP RIGHT W/PELVIS 4 VIEW Son [...] 11/29/2023 11:51:51 AM Ordering Provider: SONNY Geronimo [facility] .GFRon 07-08-2023 GFR 63 ml/min/1.73sqm Normal [facility] ([place]) Comment on above: Result Comment: GFR Population [...] FR, A1C, ANEU, CBC, ADIFF, BMP #### [address] [address] GFR Non- 52 ml/min/1.73sqm Normal [facility] ([place]) Comment on above: Result Comment: GFR [...] FR, A1C, ANEU, CBC, ADIFF, BMP #### [address] [address] BMPon 07-08-2023 BUN/Creatinine Ratio 19 ratio Normal 7-27 [facility] ([place]) Comment on above: Performed By: #### G FR, A1C, ANEU, CBC, ADIFF, BMP #### [address] [address] Calcium [Mass/Vol] 9.6 mg/dL Normal 8.4-10.2 [facility] ([place]) Comment on above: Performed By: #### G FR, A1C, ANEU, CBC, ADIFF, BMP #### [address] [address] Chloride [Moles/Vol] 106 mmol/L Normal 98-107 [facility] ([place]) Comment on above: Performed By: #### G FR, A1C, ANEU, CBC, ADIFF, BMP #### [address] [address] CO2 [Moles/Vol] 29 mmol/L Normal 23-31 [facility] ([place]) Comment on above: Performed By: #### G FR, A1C, ANEU, CBC, ADIFF, BMP #### [address] [address] Creatinine [Mass/Vol] 1.02 mg/dL Normal 0.55-1.02 [facility] ([place]) Comment on above: Performed By: #### G FR, A1C, ANEU, CBC, ADIFF, BMP #### [address] [address] Electrolyte Balance 9.0 mEq/L Normal 4.0-15.0 [facility] ([place]) Comment on above: Performed By: #### G FR, A1C, ANEU, CBC, ADIFF, BMP #### [address] [address] Glucose [Mass/Vol] 118 mg/dL High 83-110 [facility] ([place]) Comment on above: Performed By: #### G FR, A1C, ANEU, CBC, ADIFF, BMP #### [place] [id number] [place], [place] [address] Potassium [Moles/Vol] 3.7 mmol/L Normal 3.5-5.1 [facility] ([place]) Comment on above: Performed By: #### G FR, A1C, ANEU, CBC, ADIFF, BMP #### [place] [id number] [place], [place] [address] Sodium [Moles/Vol] 144 mmol/L Normal 136-145 [facility] ([place]) Comment on above: Performed By: #### G FR, A1C, ANEU, CBC, ADIFF, BMP #### [place] [id number] [place], [place] [address] Urea nitrogen [Mass/Vol] 19 mg/dL High 7-18 [facility] ([place]) Comment on above: Performed By: #### G FR, A1C, ANEU, CBC, ADIFF, BMP #### [address] [address] LABORATORYOrdered By: SYSTEM SYSTEM on 07-08-2023 Calcium [...] 04/14/2023 10:35:22 AM Ordering Provider: MAHAD Geronimo [facility] METon 04-14-2023 Methylmalonic Acid 340 nmol/L Normal 0-378 [facility] [facility]) Comment on above: Result Comment: This test was developed and its performance characteristics determined by [facility]. It has not been cleared or approved by the Food and Drug Administration. Performed At: [address] [id number] Hima Lieberman MD Ph:[phone] Performed By: #### G FR, A1C, ANEU, CBC, ADIFF, BMP #### [address] [address] B12on 04-07-2023 Cobalamin (Vitamin B12) [Mass/Vol] 600 pg/mL Normal 211-911 Critical access hospital) Comment on above: Performed By: #### F OL, B12 #### [facility] [address] [place] [address] #### FT4, [id number], TSH #### [address] [address] FOLon 04-07-2023 Folate >48.00 High 5.38-24.00 [facility] ([place]) Comment on above: Performed By: #### F OL, B12 #### [place] [address] #### FT4, [id number], TSH #### [address] [address] FT4on 04-07-2023 Free T4 [Mass/Vol] 0.99 ng/dL Normal 0.76-1.46 [facility] ([place]) Comment on above: Performed By: #### F OL, B12 #### [place] [address] #### FT4, [id number], TSH #### [place] [id number] LABORATORYOrdered By: SYSTEM SYSTEM on 04-07-2023 Cobalamin [...] 04-07-2023 TSH Qn 1.65 m[IU]/L Normal 0.36-3.74 [facility] ([place]) Comment on above: Performed By: #### F OL, B12 #### [place] [address] #### FT4, 018376, TSH #### [address] [address] .Auto Diffon 03-10-2023 Basophil, Absolute 0.1 10 3/mcL Normal 0.0-0.2 [facility] ([place]) Comment on above: Performed By: #### G FR, A1C, ANEU, CBC, ADIFF, BMP #### [address] [address] Basophils/100 WBC (Bld) 1.2 % Normal 0.0-2.5 A [facility] ([place]) Comment on above: Performed By: #### G FR, A1C, ANEU, CBC, ADIFF, BMP #### [address] [address] Eosinophil, Absolute 0.1 10 3/mcL Normal 0.0-0.4 [facility] [place]) Comment on above: Performed By: #### G FR, A1C, ANEU, CBC, ADIFF, BMP #### [address] [address] Eosinophils/100 WBC (Bld) 1.6 % Normal 0.0-7.0 [facility] ([place]) Comment on above: Performed By: #### G FR, A1C, ANEU, CBC, ADIFF, BMP #### [address] [address] Lymphocyte, Absolute 1.9 10 3/mcL Normal 0.8-3.9 [facility] ([place]) Comment on above: Performed By: #### G FR, A1C, ANEU, CBC, ADIFF, BMP #### [address] [address] Lymphocytes/100 WBC (Bld) 23.7 % Normal 10.0-50.0 [facility] ([place]) Comment on above: Performed By: #### G FR, A1C, ANEU, CBC, ADIFF, BMP #### [address] [address] Monocyte, Absolute 0.6 10 3/mcL Normal 0.2-1.0 [facility] ([place]) Comment on above: Performed By: #### G FR, A1C, ANEU, CBC, ADIFF, BMP #### [address] [address] Monocytes/100 WBC (Bld) 7.8 % Normal 1.7-13.0 A [facility] ([place]) Comment on above: Performed By: #### G FR, A1C, ANEU, CBC, ADIFF, BMP #### [address] [address] Neutrophils/100 WBC (Bld) 65.7 % Normal 37.0-80.0 [facility] ([place]) Comment on above: Performed By: #### G FR, A1C, ANEU, CBC, ADIFF, BMP #### [place] [id number] [place], [place] [address] .GFRon 03-10-2023 GFR 63 ml/min/1.73sqm Normal [facility] ([place]) Comment on above: Result Comment: GFR Population [...] FR, A1C, ANEU, CBC, ADIFF, BMP #### [address] [address] GFR Non- 52 ml/min/1.73sqm Normal [facility] ([place]) Comment on above: Result Comment: GFR Population [...] FR, A1C, ANEU, CBC, ADIFF, BMP #### [address] [address] .NEUABSon 03-10-2023 Neutrophil, Absolute 5.2 10 3/mcL Normal 2.9-6.2 [facility] [place]) Comment on above: Performed By: #### G FR, A1C, ANEU, CBC, ADIFF, BMP #### [place] [id number] A1Con 03-10-2023 HbA1c (Bld) [Mass fraction] 5.6 % Normal 4.3-6.4 [facility] ([place]) Comment on above: Performed By: #### G FR, A1C, ANEU, CBC, ADIFF, BMP #### [place] [address] CBCon 03-10-2023 Erythrocyte distribution width (RBC) [Ratio] 14.7 % High 11.5-14.5 [facility] ([place]) Comment on above: Performed By: #### G FR, A1C, ANEU, CBC, ADIFF, BMP #### [place] [address] Hematocrit (Bld) [Volume fraction] 35.6 % Low 37.0-47.0 [facility] ([place]) Comment on above: Performed By: #### G FR, A1C, ANEU, CBC, ADIFF, BMP #### [place] [id number] Hgb 12.1 G/dL Normal 12.0-16.0 [facility] ([place]) Comment on above: Performed By: #### G FR, A1C, ANEU, CBC, ADIFF, BMP #### [place] [address] MCH (RBC) [Entitic mass] 27.8 pg Normal 27.0-31.2 [facility] ([place]) Comment on above: Performed By: #### G FR, A1C, ANEU, CBC, ADIFF, BMP #### [place] [address] MCHC 34.1 G/dL Normal 33.0-37.0 [facility] ([place]) Comment on above: Performed By: #### G FR, A1C, ANEU, CBC, ADIFF, BMP #### [address] [address] MCV (RBC) [Entitic vol] 81.7 fL Normal 80.0-94.0 A [facility] ([place]) Comment on above: Performed By: #### G FR, A1C, ANEU, CBC, ADIFF, BMP #### [address] [address] Platelet 300 10 3/mcL Normal 130-400 [facility] ([place]) Comment on above: Performed By: #### G FR, A1C, ANEU, CBC, ADIFF, BMP #### [address] [address] Platelet mean volume (Bld) [Entitic vol] 8.0 fL Normal 7.4-10.4 [facility] ([place]) Comment on above: Performed By: #### G FR, A1C, ANEU, CBC, ADIFF, BMP #### [address] [address] RBC 4.35 10 6/mcL Normal 4.20-5.40 [facility] ([place]) Comment on above: Performed By: #### G FR, A1C, ANEU, CBC, ADIFF, BMP #### [address] [address] WBC 8.0 10 3/mcL Normal 4.6-10.8 [facility] ([place]) Comment on above: Performed By: #### G FR, A1C, ANEU, CBC, ADIFF, BMP #### [address] [address] CMPon 03-10-2023 Chloride [Moles/Vol] 102 mmol/L Normal 98-107 [facility] ([place]) Comment on above: Performed By: #### G FR, A1C, ANEU, CBC, ADIFF, BMP #### [address] [address] Electrolyte Balance 10.0 mEq/L Normal 4.0-15.0 [facility] ([place]) Comment on above: Performed By: #### G FR, A1C, ANEU, CBC, ADIFF, BMP #### [address] [address] Potassium [Moles/Vol] 4.3 mmol/L Normal 3.5-5.1 [facility] ([place]) Comment on above: Performed By: #### G FR, A1C, ANEU, CBC, ADIFF, BMP #### [address] [address] Sodium [Moles/Vol] 141 mmol/L Normal 136-145 [facility] ([place]) Comment on above: Performed By: #### G FR, A1C, ANEU, CBC, ADIFF, BMP #### [address] [address] Albumin Level 3.7 G/dL Normal 3.4-4.8 [facility] ([place]) Comment on above: Performed By: #### G FR, A1C, ANEU, CBC, ADIFF, BMP #### [address] [address] Albumin/Globulin [Mass ratio] 1.1 {ratio} Normal 1.1-2.5 [facility] ([place]) Comment on above: Performed By: #### G FR, A1C, ANEU, CBC, ADIFF, BMP #### [address] [address] ALP [Catalytic activity/Vol] 79 U/L Normal 40-135 [facility] ([place]) Comment on above: Performed By: #### G FR, A1C, ANEU, CBC, ADIFF, BMP #### [address] [address] ALT [Catalytic activity/Vol] 24 U/L Normal 14-59 [facility] ([place]) Comment on above: Performed By: #### G FR, A1C, ANEU, CBC, ADIFF, BMP #### [address] [address] AST [Catalytic activity/Vol] 12 U/L Normal 10-40 [facility] ([place]) Comment on above: Performed By: #### G FR, A1C, ANEU, CBC, ADIFF, BMP #### [address] [address] Bili Total 0.3 mg/dL Normal 0.2-1.0 [facility] ([place]) Comment on above: Result Comment: Use of this assay is not recommended for patients undergoing treatment with eltrombopag due to the potential for falsely elevated results. Performed By: #### G FR, A1C, ANEU, CBC, ADIFF, BMP #### [address] [address] BUN/Creatinine Ratio 25 ratio Normal 7-27 [facility] ([place]) Comment on above: Performed By: #### G FR, A1C, ANEU, CBC, ADIFF, BMP #### [address] [address] Calcium [Mass/Vol] 10.1 mg/dL Normal 8.4-10.2 [facility] ([place]) Comment on above: Performed By: #### G FR, A1C, ANEU, CBC, ADIFF, BMP #### [address] [address] CO2 [Moles/Vol] 29 mmol/L Normal 23-31 [facility] ([place]) Comment on above: Performed By: #### G FR, A1C, ANEU, CBC, ADIFF, BMP #### [address] [address] Creatinine [Mass/Vol] 1.02 mg/dL Normal 0.55-1.02 [facility] ([place]) Comment on above: Performed By: #### G FR, A1C, ANEU, CBC, ADIFF, BMP #### [address] [address] Globulin 3.3 G/dL Normal [facility] ([place]) Comment on above: Performed By: #### G FR, A1C, ANEU, CBC, ADIFF, BMP #### [address] [address] Glucose [Mass/Vol] 118 mg/dL High 83-110 [facility] ([place]) Comment on above: Performed By: #### G FR, A1C, ANEU, CBC, ADIFF, BMP #### [address] [address] Total Protein 7.0 G/dL Normal 6.4-8.2 [facility] ([place]) Comment on above: Performed By: #### G FR, A1C, ANEU, CBC, ADIFF, BMP #### [address] [address] Urea nitrogen [Mass/Vol] 26 mg/dL High 7-18 [facility] ([place]) Comment on above: Performed By: #### G FR, A1C, ANEU, CBC, ADIFF, BMP #### [address] [address] LIPIDon 03-10-2023 Cholesterol [Mass/Vol] 214 mg/dL High 0-200 [facility] ([place]) Comment on above: Result Comment: Chol esterol Reference Interval: Less than 200 Desirable 200-239 Borderline high risk 240 and above High risk Performed By: #### G FR, A1C, ANEU, CBC, ADIFF, BMP #### [address] [address] Cholesterol in HDL [Mass/Vol] 62 mg/dL High 40-60 [facility] ([place]) Comment on above: Performed By: #### G FR, A1C, ANEU, CBC, ADIFF, BMP #### [address] [address] Cholesterol in LDL [Mass/Vol] 111 mg/dL Normal 0-130 [facility] ([place]) Comment on above: Performed By: #### G FR, A1C, ANEU, CBC, ADIFF, BMP #### [address] [address] Triglyceride [Mass/Vol] 205 mg/dL High 0-150 [facility] ([place]) Comment on above: Result Comment: Trig lyceride Reference Interval: Less than 150 Normal 150-199 Borderline high risk 200-499 High risk 500 or higher Very high risk Performed By: #### G FR, A1C, ANEU, CBC, ADIFF, BMP #### [address] [address] PHOSon 03-10-2023 Phosphate [Mass/Vol] 3.2 mg/dL Normal 2.3-4.1 [facility] ([place]) Comment on above: Performed By: #### G FR, A1C, ANEU, CBC, ADIFF, BMP #### [address] [address] PTHon 03-10-2023 PTH, Intact 78.2 pg/mL Normal 18.5-88.0 [facility] ([place]) Comment on above: Performed By: #### G FR, A1C, ANEU, CBC, ADIFF, BMP #### [address] [address] VIDHon 03-10-2023 Vit. D 25-Hydroxy 32.1 ng/mL Normal [facility] ([place]) Comment on above: Result Comment: Inte rpretive Values Based on Total 25(OH) Vitamin D: Deficient <20 ng/mL Insufficient 20 - <30 ng/mL Sufficient 30-100 ng/mL Performed By: #### G FR, A1C, ANEU, CBC, ADIFF, BMP #### [address] [address] BD BONE DENSITY DEXA AXIAL S KELETONon [...] 12/14/2022 9:37:25 AM Ordering Provider: LARRY Geronimo [facility] ([place]) .Auto Diffon 09-16-2022 Basophil, Absolute 0.1 10 3/mcL Normal 0.0-0.2 [facility] ([place]) Comment on above: Performed By: #### G FR, A1C, ANEU, CBC, ADIFF, BMP #### [address] [address] Basophils/100 WBC (Bld) 0.8 % Normal 0.0-2.5 [facility] ([place]) Comment on above: Performed By: #### G FR, A1C, ANEU, CBC, ADIFF, BMP #### [address] [address] Eosinophil, Absolute 0.2 10 3/mcL Normal 0.0-0.4 [facility] [place]) Comment on above: Performed By: #### G FR, A1C, ANEU, CBC, ADIFF, BMP #### [address] [address] Eosinophils/100 WBC (Bld) 2.1 % Normal 0.0-7.0 [facility] ([place]) Comment on above: Performed By: #### G FR, A1C, ANEU, CBC, ADIFF, BMP #### [address] [address] Lymphocyte, Absolute 2.0 10 3/mcL Normal 0.8-3.9 [facility] [place]) Comment on above: Performed By: #### G FR, A1C, ANEU, CBC, ADIFF, BMP #### [address] [address] Lymphocytes/100 WBC (Bld) 22.9 % Normal 10.0-50.0 [facility] ([place]) Comment on above: Performed By: #### G FR, A1C, ANEU, CBC, ADIFF, BMP #### [address] [address] Monocyte, Absolute 0.5 10 3/mcL Normal 0.2-1.0 [facility] ([place]) Comment on above: Performed By: #### G FR, A1C, ANEU, CBC, ADIFF, BMP #### [address] [address] Monocytes/100 WBC (Bld) 6.4 % Normal 1.7-13.0 [facility] ([place]) Comment on above: Performed By: #### G FR, A1C, ANEU, CBC, ADIFF, BMP #### [address] [address] Neutrophils/100 WBC (Bld) 67.8 % Normal 37.0-80.0 [facility] ([place]) Comment on above: Performed By: #### G FR, A1C, ANEU, CBC, ADIFF, BMP #### [address] [address] .GFRon 09-16-2022 GFR Non- 48 ml/min/1.73sqm Normal [facility] ([place]) Comment on above: Result Comment: GFR Population [...] FR, A1C, ANEU, CBC, ADIFF, BMP #### [address] [address] GFR 59 ml/min/1.73sqm Normal [facility] ([place]) Comment on above: Result Comment: GFR Population [...] FR, A1C, ANEU, CBC, ADIFF, BMP #### [address] [address] .NEUABSon 09-16-2022 Neutrophil, Absolute 5.8 10 3/mcL Normal 2.9-6.2 [facility] [place]) Comment on above: Performed By: #### G FR, A1C, ANEU, CBC, ADIFF, BMP #### [address] [address] A1Con 09-16-2022 HbA1c (Bld) [Mass fraction] 5.7 % Normal 4.3-6.4 [facility] ([place]) Comment on above: Performed By: #### G FR, A1C, ANEU, CBC, ADIFF, BMP #### [address] [address] BMPon 09-16-2022 BUN/Creatinine Ratio 27 ratio Normal 7-27 [facility] ([place]) Comment on above: Performed By: #### G FR, A1C, ANEU, CBC, ADIFF, BMP #### [address] [address] Calcium [Mass/Vol] 9.8 mg/dL Normal 8.4-10.2 [facility] ([place]) Comment on above: Performed By: #### G FR, A1C, ANEU, CBC, ADIFF, BMP #### [address] [address] Chloride [Moles/Vol] 106 mmol/L Normal 98-107 [facility] ([place]) Comment on above: Performed By: #### G FR, A1C, ANEU, CBC, ADIFF, BMP #### [address] [address] CO2 [Moles/Vol] 29 mmol/L Normal 23-31 [facility] ([place]) Comment on above: Performed By: #### G FR, A1C, ANEU, CBC, ADIFF, BMP #### [address] [address] Creatinine [Mass/Vol] 1.08 mg/dL High 0.55-1.02 [facility] ([place]) Comment on above: Performed By: #### G FR, A1C, ANEU, CBC, ADIFF, BMP #### [address] [address] Electrolyte Balance 8.0 mEq/L Normal 4.0-15.0 [facility] ([place]) Comment on above: Performed By: #### G FR, A1C, ANEU, CBC, ADIFF, BMP #### [address] [address] Glucose [Mass/Vol] 125 mg/dL High 83-110 [facility] ([place]) Comment on above: Performed By: #### G FR, A1C, ANEU, CBC, ADIFF, BMP #### [address] [address] Potassium [Moles/Vol] 4.5 mmol/L Normal 3.5-5.1 [facility] ([place]) Comment on above: Performed By: #### G FR, A1C, ANEU, CBC, ADIFF, BMP #### [address] [address] Sodium [Moles/Vol] 143 mmol/L Normal 136-145 [facility] ([place]) Comment on above: Performed By: #### G FR, A1C, ANEU, CBC, ADIFF, BMP #### [address] [address] Urea nitrogen [Mass/Vol] 29 mg/dL High 7-18 [facility] ([place]) Comment on above: Performed By: #### G FR, A1C, ANEU, CBC, ADIFF, BMP #### [address] [address] CBCon 09-16-2022 Erythrocyte distribution width (RBC) [Ratio] 14.6 % High 11.5-14.5 [facility] ([place]) Comment on above: Performed By: #### G FR, A1C, ANEU, CBC, ADIFF, BMP #### [place] [address] Hematocrit (Bld) [Volume fraction] 33.9 % Low 37.0-47.0 [facility] ([place]) Comment on above: Performed By: #### G FR, A1C, ANEU, CBC, ADIFF, BMP #### [address] [address] Hgb 11.2 G/dL Low 12.0-16.0 [facility] ([place]) Comment on above: Performed By: #### G FR, A1C, ANEU, CBC, ADIFF, BMP #### [address] [address] MCH (RBC) [Entitic mass] 27.0 pg Normal 27.0-31.2 [facility] ([place]) Comment on above: Performed By: #### G FR, A1C, ANEU, CBC, ADIFF, BMP #### [address] [address] MCHC 33.1 G/dL Normal 33.0-37.0 [facility] ([place]) Comment on above: Performed By: #### G FR, A1C, ANEU, CBC, ADIFF, BMP #### [address] [address] MCV (RBC) [Entitic vol] 81.6 fL Normal 80.0-94.0 A [facility] ([place]) Comment on above: Performed By: #### G FR, A1C, ANEU, CBC, ADIFF, BMP #### [address] [address] Platelet 275 10 3/mcL Normal 130-400 [facility] ([place]) Comment on above: Performed By: #### G FR, A1C, ANEU, CBC, ADIFF, BMP #### [address] [address] Platelet mean volume (Bld) [Entitic vol] 8.2 fL Normal 7.4-10.4 [facility] ([place]) Comment on above: Performed By: #### G FR, A1C, ANEU, CBC, ADIFF, BMP #### [address] [address] RBC 4.15 10 6/mcL Low 4.20-5.40 [facility] ([place]) Comment on above: Performed By: #### G FR, A1C, ANEU, CBC, ADIFF, BMP #### [address] [address] WBC 8.5 10 3/mcL Normal 4.6-10.8 [facility] ([place]) Comment on above: Performed By: #### G FR, A1C, ANEU, CBC, ADIFF, BMP #### [address] [address] LABORATORYOrdered By: SYSTEM SYSTEM on 06-19-2022 Basophils [...] Invalid Interpretation Code 0.50 - 1.20 mg/dL AH ADM SS Electrolyte Balance 6.0 mEq/L Invalid Interpretation Code 4.0 - 15.0 mEq/L ADM SS Eosinophils (Bld) [#/Vol] 0.2 103/mcL Invalid Interpretation Code 0.0 - 0.7 10^3/mcL AH Workflow SS Eosinophils/100 WBC (Bld) 2.8 % Invalid Interpretation Code 0.0 - 6.0 % AH Workflow SS Erythrocyte distribution width (RBC) [Ratio] [...] CNPNon 06-03-2022 CNPN Telephone (GENSWS) SHACT GARCIA ([id number]) 1940 F Date Time Provider Department 06/03/22 PAULA ALANIZ During your visit today, we recorded the following information about you: Brenton Jennings RN 06/03/2022 11:29 AM Signed Received a request from [facility] for all of Ct's left breast cancer treatment medical records. Faxed the request to medical records on [facility], fax confirmation sheet received. Brenton Jennings [...] Status:Closed by BRENTON JENNINGS on 06/03/22 Normal [facility] LABORATORYOrdered By: SYSTEM SYSTEM on 04-14-2022 [...] CNOV Office Visit (TONYA ) CT DALTON ([id number]) 1940 F Date Time Provider Department 04/06/22 [...] needle core breast biopsies on 03/23/2022 at [facility]. Findings of fat necrosis, inflammation and dense [...] once daily. (more content not included)... Normal [facility] LABORATORYOrdered By: SYSTEM SYSTEM on 03-09-2022 [...] (12/04/21 3:30 PM) Invalid Interpretation Code Negative Auto Urine SS UA pH 6.5 (12/04/21 3:30 PM) Invalid Interpretation Code 5.0 - 8.0 AH Auto Urine SS UA Protein Negative Invalid Interpretation Code Negativemg/ dL Auto Urine SS UA Spec Grav <=1.005 [...] Invalid Interpretation Code 5.7 - 8.2 G/dL AH ADM SS RBC (Bld) [#/Vol] 3.80 106/mcL Invalid Interpretation Code 4.10 - 5.30 10^6/mcL AH Workflow SS Sodium [Moles/Vol] 138 mmol/L Invalid Interpretation Code 136 - 145 mEq/L ADM SS Troponin I.cardiac DL <= 0.01 ng/mL [Mass/Vol] 8.59 ng/L Invalid Interpretation Code 0.00 - 34.00 ng/L AH ADM SS TSH Qn 1.469 mIU/mL Invalid Interpretation Code 0.550 - 4.780 mIU/mL AH ADM SS Urea nitrogen [Mass/Vol] 25.0 mg/dL Invalid Interpretation Code 8.0 - 22.0 mg/dL AH ADM SS Urea nitrogen/Creatinine [Mass ratio] 30.1 ratio Invalid Interpretation Code 10.0 - 22.0 ratio AH ADM SS WBC (Bld) [#/Vol] 8.3 103/mcL Invalid Interpretation Code 4.5 - 10.8 10^3/mcL AH Workflow SS No Panel Informationon 12-04 Culture Urine No growth to date [facility] Microscopic examination of blood, culture Culture has been received in lab and is no growth to date. Routine cultures are held for [address] [facility] LABORATORYOrdered By: Rick Webber on 12-03-2021 [...] 1.006-1.029 AM [facility] Subsection Urobilinogen Qn (U) [id number] {Sara'U}/dL Invalid Interpretation Code 0.2-1.0E.U. /dL AM [...] on above: Result Comment: [address]les[address] [place], [place] [address] Perf Loc - POCT Tested at AM Invalid Interpretation Code AM [facility] Subsection Comment on above: Result Comment: [address] [place], [place] [address] Perf Loc - POCT Tested at AM Invalid Interpretation Code AM [facility] Subsection Comment on above: Result Comment: Alesia [address] [place], [place] [address] MRI BREAST WO/W IVCON BILon 03-01-2018 MRI BREAST WO/W IVCON DUNCAN * * *Final Report* * * DATE OF EXAM: Mar 01 2018 11:54AM [facility] 0773 - MRI BREAST WO/W IVCON DUNCAN / PROCEDURE REASON: N64.4-Mastodynia * * * * Physician Interpretation * * * * #[id number] - MRI BREAST WO/W IVCON DUNCAN BREAST MRI OF BOTH BREASTS: 03/01/2018 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 Short interval follow up of the lumpectomy site recommended per the prior MRI dated 05/18/2017. RESULT: Comparison is made to exam dated: 05/18/2017 breast MRI - [facility]. Interpretation of this MRI was correlated [...] Follow-up with ACR/NCCN guidelines. Td carlson/rafael:03/01/2018 14:15:08 Surg Nurse(s): RT Amanda(N)(MR), [facility] MRI BI-RADS: 2 Benign finding Multiple [...] Health, Family Medicine, and Medical/Surgical Oncology, the [facility] has carefully reviewed the data and [...] their providers when to stop screening mammograms. Line Patrolman: Rafael Transcribe Date/Time: Mar 01 2018 11:37A Dictated by : TD SANDERS MD This examination was interpreted and the report reviewed and electronically signed by: TD SANDERS MD on Mar 01 2018 2:15PM EST [id number] [facility] NURSING PROGon 03-01-2018 Protein mass conc HNO ID: [id number] Author: Carla Love (Rn) Kristopher Service: Radiology [...] Summers RN March 01, 2018 10:49 AM [facility] Clinical Summary: HMSPatient IDon 01-17-2018 OOP Invalid Interpretation Code [facility] Work Phone: Office Visit: Follow-up by donnie servin, Rm: [email or web address] 01-17-2018 NEGATED: Highlighted rowMRI (magnetic resonance imaging) history of the lumbar spine on 10/20/2013 at [place] Invalid Interpretation Code [facility] Work Phone: NEGATED: Highlighted rowProtein mass conc Done Invalid Interpretation Code [facility] Work Phone: MRI BREAST WO/W IVCON BILon 05-18-2017 MRI BREAST WO/W IVCON DUNCAN * * *Final Report* * * DATE OF EXAM: May 18 2017 2:32PM [facility] 0773 - MRI BREAST WO/W IVCON DUNCAN / PROCEDURE REASON: Z13.89-Encounter for screening for other disorder * * * * Physician Interpretation * * * * #[id number] - MRI BREAST WO/W IVCON DUNCAN BREAST [...] was reviewed by a staff physician. Cricket Pineda M.D. camilo,gaurav/rafael:05/18/2017 15:28:32 Surg Nurse: Cally SPEARS(Alex)(Jeanine), [facility] MRI BI-RADS: 3 Probably benign finding - short term interval follow-up recommended Line Patrolman: Rafael Transcribe Date/Time: May 18 2017 2:15P Dictated by : MALLIKA PINEDA MD This examination was interpreted and the report reviewed and electronically signed by: CRICKET AMBRIZ MD on May 18 2017 3:28PM EST [id number] [facility] NURSING PROGon 05-18-2017 Protein mass conc HNO ID: [id number] Author: Ema PaulRn) DONA Bai Service: PICC Team Author Type: [...] 2017 TIME: 1:27 PM PAGER/CONTACT #: [phone] [facility] Vital Signs Date Time Vital Sign Value Performing Clinician Facility 08-26-2024 12:46-0400 Body height 167.[address] Warner Leos MD Work Phone: [facility] 07-24-2024 03:24-0400 Diastolic blood pressure 69 mm[Hg] Dr. Warner Leos MD Work Phone: [facility] 07-24-2024 03:24-0400 Heart rate 52 /min Dr. Warner Leos MD Work Phone: [facility] 07-24-2024 03:24-0400 SaO2% (BldA) [Mass fraction] 100 % Dr. Warner Leos MD Work Phone: [facility] 07-24-2024 03:24-0400 Systolic blood pressure 164 mm[Hg] Dr. Warner Leos MD Work Phone: [facility] 07-24-2024 01:24-0400 Body height 167.[address] Warner Leos MD Work Phone: [facility] 07-24-2024 01:24-0400 Body mass index (BMI) [Ratio] 28 kg/m2 Dr. Warner Leos MD Work Phone: [facility] 07-24-2024 01:24-0400 Body temperature 98 [degF] Dr. Warner Leos MD Work Phone: [facility] 07-24-2024 01:24-0400 Body weight 78.[address] Warner Leos MD Work Phone: [facility] 07-24-2024 01:24-0400 Respiratory rate 16 /min Dr. Warner Leos MD Work Phone: [facility] 02-10-2024 15:30-0500 Body temperature 97.52 [degF] [facility] COORDINATOR-SUPERVISOR FISH PROCESSING [facility] 02-10-2024 15:30-0500 Diastolic Blood Pressure Non-Invasive 72 mm[Hg] [facility] COORDINATOR-SUPERVISOR FISH PROCESSING [facility] 02-10-2024 15:30-0500 Heart rate 84 /min [facility] COORDINATOR-SUPERVISOR FISH PROCESSING [facility] 02-10-2024 15:30-0500 Reason For Taking VItal Signs [facility] COORDINATOR-SUPERVISOR FISH PROCESSING [facility] 02-10-2024 15:30-0500 Respiratory rate 16 /min [facility] COORDINATOR-SUPERVISOR FISH PROCESSING [facility] 02-10-2024 15:30-0500 Systolic Blood Pressure Non-Invasive 146 mm[Hg] [facility] COORDINATOR-SUPERVISOR FISH PROCESSING [facility] 02-10-2024 06:37-0500 Body temperature 97.34 [degF] [facility]LL[facility] COORDINATOR-SUPERVISOR FISH PROCESSING [facility] 02-10-2024 06:37-0500 Diastolic Blood Pressure Non-Invasive 82 mm[Hg] [facility]LL[facility] COORDINATOR-SUPERVISOR FISH PROCESSING [facility] 02-10-2024 06:37-0500 Heart rate 80 /min [facility] COORDINATOR-SUPERVISOR FISH PROCESSING [facility] 02-10-2024 06:37-0500 Reason For Taking VItal Signs [facility] COORDINATOR-SUPERVISOR FISH PROCESSING [facility] 02-10-2024 06:37-0500 Respiratory rate 14 /min [facility] COORDINATOR-SUPERVISOR FISH PROCESSING [facility] 02-10-2024 06:37-0500 Systolic Blood Pressure Non-Invasive 148 mm[Hg] [facility] COORDINATOR-SUPERVISOR FISH PROCESSING [facility] 02-10-2024 03:22-0500 Body temperature 97.52 [degF] [facility] COORDINATOR-SUPERVISOR FISH PROCESSING [facility] 02-10-2024 03:22-0500 Diastolic Blood Pressure Non-Invasive 81 mm[Hg] [facility]LL[facility] COORDINATOR-SUPERVISOR FISH PROCESSING [facility] 02-10-2024 03:22-0500 Heart rate 81 /min [facility] COORDINATOR-SUPERVISOR FISH PROCESSING [facility] 02-10-2024 03:22-0500 Reason For Taking VItal Signs [facility] COORDINATOR-SUPERVISOR FISH PROCESSING [facility] 02-10-2024 03:22-0500 Respiratory rate 14 /min [facility] COORDINATOR-SUPERVISOR FISH PROCESSING [facility] 02-10-2024 03:22-0500 Systolic Blood Pressure Non-Invasive 156 mm[Hg] [facility]LL[facility] COORDINATOR-SUPERVISOR FISH PROCESSING [facility] 02-09-2024 22:01-0500 Heart rate 74 /min [facility] COORDINATOR-SUPERVISOR FISH PROCESSING [facility] 02-09-2024 21:59-0500 Body height 152 cm [facility] COORDINATOR-SUPERVISOR FISH PROCESSING [facility] 02-09-2024 21:59-0500 Body weight 67 kg [facility]LL[facility] COORDINATOR-SUPERVISOR FISH PROCESSING [facility] 02-09-2024 21:59-0500 Body weight 29 kg/m2 [facility]LL[facility] COORDINATOR-SUPERVISOR FISH PROCESSING [facility] 02-09-2024 21:07-0500 Heart rate 78 /min [facility]LL[facility] COORDINATOR-SUPERVISOR FISH PROCESSING [facility] 02-09-2024 21:07-0500 Mean blood pressure 90 mm[Hg] [facility] WELLNESS COORDINATOR-SUPERVISOR FISH PROCESSING [facility] 02-09-2024 20:38-0500 Mean blood pressure 85 mm[Hg] [facility] COORDINATOR-SUPERVISOR FISH PROCESSING [facility] 02-09-2024 19:39-0500 Heart rate 83 /min [facility] COORDINATOR-SUPERVISOR FISH PROCESSING [facility] 01-21-2024 10:04-0500 Body height 160 cm INES DENNIS MD [facility] 01-21-2024 10:04-0500 Body temperature 97.52 [degF] INES DENNIS MD [facility] 01-21-2024 10:04-0500 Body weight 68.2 kg INES DENNIS MD [facility] 01-21-2024 10:04-0500 Diastolic Blood Pressure Non-Invasive 81 mm[Hg] INES DENNIS MD [facility] 01-21-2024 10:04-0500 Heart rate 85 /min INES DENNIS MD [facility] 01-21-2024 10:04-0500 Respiratory rate 18 /min INES DENNIS MD [facility] 01-21-2024 10:04-0500 Systolic Blood Pressure Non-Invasive 164 mm[Hg] INES DENNIS MD [facility] 12-09-2023 08:47-0400 Blood Pressure Location INES DENNIS MD [facility] 12-09-2023 08:47-0400 Blood Pressure Method INES DENNIS MD [facility] 12-09-2023 08:47-0400 Body temperature 98.24 [degF] INES DENNIS MD [facility] 12-09-2023 08:47-0400 Diastolic Blood Pressure Non-Invasive 91 mm[Hg] INES DENNIS MD [facility] 12-09-2023 08:47-0400 Heart rate 90 /min INES DENNIS MD [facility] 12-09-2023 08:47-0400 Respiratory rate 18 /min INES DENNIS MD [facility] 12-09-2023 08:47-0400 Systolic Blood Pressure Non-Invasive 161 mm[Hg] INES DENNIS MD [facility] 11-29-2023 12:26-0400 Diastolic Blood Pressure Non-Invasive 76 mm[Hg] SONNY STAHL DO [facility] 11-29-2023 12:26-0400 Heart rate 76 /min SONNY STAHL DO [facility] 11-29-2023 12:26-0400 Respiratory rate 18 /min SONNY STAHL DO [facility] 11-29-2023 12:26-0400 Systolic Blood Pressure Non-Invasive 164 mm[Hg] SONNY STAHL DO [facility] 11-29-2023 08:58-0400 Blood Pressure Cuff Size SONNY STAHL DO [facility] 11-29-2023 08:58-0400 Blood Pressure Location SONNY STAHL DO [facility] 11-29-2023 08:58-0400 Blood Pressure Method SONNY STAHL DO [facility] 11-29-2023 08:58-0400 Body height 155 cm SONNY STAHL DO [facility] 11-29-2023 08:58-0400 Body temperature 97.34 [degF] SONNY STAHL DO [facility] 10-21-2024 08:58-0400 Diastolic Blood Pressure Non-Invasive 83 mm[Hg] SONNY STAHL DO [facility] 11-29-2023 08:58-0400 Heart rate 84 /min SONNY STAHL DO [facility] 11-29-2023 08:58-0400 Respiratory rate 18 /min SONNY STAHL DO [facility] 11-29-2023 08:58-0400 Systolic Blood Pressure Non-Invasive 172 mm[Hg] SONNY STAHL DO [facility] 06-19-2022 12:01-0400 Blood Pressure Cuff Size DR ANISA GOMEZ MD [facility] 06-19-2022 12:01-[address] ANISA GOMEZ MD [facility] 06-19-2022 12:01-[address] ANISA GOMEZ MD [facility] 06-19-2022 12:01-0400 Body height [address] ANISA GOMEZ MD [facility] 06-19-2022 12:01-0400 Body temperature 97.7 [degF] DR ANISA GOMEZ MD [facility] 06-19-2022 12:01-0400 Body weight 76.[address] ANISA GOMEZ MD [facility] 06-19-2022 12:01-0400 Body weight 31.88 kg/m2 DR ANISA GOMEZ MD [facility] 06-19-2022 12:01-0400 Diastolic Blood Pressure Non-Invasive [address] ANISA GOMEZ MD [facility] 06-19-2022 12:01-0400 Heart rate 86 /min DR ANISA GOMEZ MD [facility] 06-19-2022 12:01-0400 Systolic Blood Pressure Non-Invasive [address] ANISA GOMEZ MD [facility] 04-06-2022 09:47-0500 Body height 157.5 cm Paula Alaniz MD Work Phone: [facility] 04-06-2022 09:47-0500 Body temperature 97.81 [degF] Paula Alaniz MD Work Phone: [facility] 04-06-2022 09:47-0500 Body weight 73.94 kg Paula Alaniz MD Work Phone: [facility] 04-06-2022 09:47-0500 Diastolic blood pressure 70 mm[Hg] Paula Alaniz MD Work Phone: [facility] 04-06-2022 09:47-0500 Heart rate 109 /min Paula Alaniz MD Work Phone: [facility] 04-06-2022 09:47-0500 SaO2% (BldA) [Mass fraction] 99 % Paula Alaniz MD Work Phone: [facility] 04-06-2022 09:47-0500 Systolic blood pressure 148 mm[Hg] Paula Alaniz MD Work Phone: [facility] 12-25-2021 16:18-0500 Diastolic Blood Pressure Non-Invasive 69 1 INES DENNIS MD [facility] 12-25-2021 16:18-0500 Systolic Blood Pressure Non-Invasive 189 1 INES DENNIS MD [facility] 12-25-2021 15:56-0500 Body height 157.5 cm INES DENNIS MD [facility] 12-25-2021 15:56-0500 Body temperature 96.44 [degF] INES DENNIS MD [facility] 12-25-2021 15:56-0500 Body weight 65.9 kg INES DENNIS MD [facility] 12-25-2021 15:56-0500 Diastolic Blood Pressure Non-Invasive 109 1 INES DENNIS MD [facility] 12-25-2021 15:56-0500 Heart rate 90 /min INES DENNIS MD [facility] 12-25-2021 15:56-0500 Respiratory rate 20 /min INES DENNIS MD [facility] 12-25-2021 15:56-0500 Systolic Blood Pressure Non-Invasive 202 1 INES DENNIS MD [facility] 12-06-2021 12:58-0400 Diastolic blood pressure 77 mm[Hg] DR KEVIN VIRGEN MD [facility] 12-06-2021 12:58-0400 Mean blood pressure 111 mm[Hg] DR KEVIN VIRGEN MD [facility] 12-06-2021 12:58-0400 Systolic blood pressure 180 mm[Hg] DR KEVIN VIRGEN MD [facility] 12-06-2021 12:55-0400 Diastolic blood pressure 77 mm[Hg] DR KEVIN VIRGEN MD [facility] 12-06-2021 12:55-0400 Heart rate 60 /min DR KEVIN VIRGEN MD [facility] 12-06-2021 12:55-0400 Mean blood pressure 111 mm[Hg] DR KEVIN VIRGEN MD [address] [place] [address] 12-06-2021 12:55-0400 Reason For Taking VItal Signs DR EKVIN VIRGEN MD [address] [place] [address] 12-06-2021 12:55-0400 Respiratory rate 18 /min DR KEVIN VIRGEN MD [address] [place] [address] 12-06-2021 12:55-0400 Systolic blood pressure 180 mm[Hg] DR KEVIN VIRGEN MD [address] [place] [address] 12-06-2021 08:46-0400 Heart rate 78 /min DR KEVIN VIRGEN MD [address] [place] [address] 12-06-2021 08:30-0400 Body temperature 98.06 [degF] DR KEVIN VIRGEN MD [address] [place] [address] 12-06-2021 08:30-0400 Diastolic blood pressure 82 mm[Hg] DR KEVIN VIRGEN MD [address] 12-06-2021 08:30-0400 Heart rate 77 /min DR KEVIN VIRGEN MD [address] 12-06-2021 08:30-0400 Mean blood pressure 106 mm[Hg] DR KEVIN VIRGEN MD [address] [place] [address] 12-06-2021 08:30-0400 Reason For Taking VItal Signs DR KEVIN VIRGEN MD [address] 12-06-2021 08:30-0400 Respiratory rate 17 /min DR KEVIN VIRGEN MD [address] [place] [address] 12-06-2021 08:30-0400 Systolic blood pressure 155 mm[Hg] DR KEVIN VIRGEN MD [address] [place] [address] 12-06-2021 03:45-0400 Body temperature 97.88 [degF] DR KEVIN VIRGEN MD [address] [place] [address] 12-06-2021 03:45-0400 Reason For Taking VItal Signs DR KEVIN VIRGEN MD [address] [place] [address] 12-06-2021 03:45-0400 Respiratory rate 18 /min DR KEVIN VIRGEN MD [address] [place] [address] 12-05-2021 23:53-0400 Body temperature 98.06 [degF] DR KEVIN VIRGEN MD [address] [place] [address] 12-04-2021 15:33-0400 Heart rate 56 /min DR KEVIN VIRGEN MD [address] [place] [address] 12-04-2021 02:47-0400 Heart rate 55 /min DR KEVIN VIRGEN MD [address] [place] [address] 12-03-2021 23:44-0400 Heart rate 60 /min DR KEVIN VIRGEN MD [address] [place] [address] 12-03-2021 21:46-0400 Body height [address] KEVIN VIRGEN MD [address] [place] [address] 12-03-2021 21:46-0400 Body weight 83.[address] KEVIN VIRGEN MD [address] [place] [address] 12-03-2021 21:46-0400 Body weight 32.73 kg/m2 DR KEVIN VIRGEN MD [address] [place] [address] 12-03-2021 21:30-0400 Heart rate 86 /min DR KEVIN VIRGEN MD [address] [place] [address] 12-03-2021 14:26-0400 Body temperature 98.06 [degF] DR KEVIN VIRGEN MD [address] [place] [address] 12-03-2021 14:26-0400 Body weight 83.[address] KEVIN VIRGEN MD [address] [place] [address] NEGATED: Highlighted [id number] 10:24-0500 BMI (Body Mass Index) 37.26 kg/m2 Rigo Sitko AT [facility] Work Phone: NEGATED: Highlighted [id number] 10:24-0500 BP Diastolic 72 mm[Hg] Rigo Sitko AT [facility] Work Phone: NEGATED: Highlighted [id number] 10:24-0500 BP Diastolic 82 mm[Hg] Riog Sitko AT [facility] Work Phone: NEGATED: Highlighted [id number] 10:24-0500 BP Systolic 154 mm[Hg] Rigo Sitko AT [facility] Work Phone: NEGATED: Highlighted [id number] 10:24-0500 BP Systolic 149 mm[Hg] Rigo Sitko AT [facility] Work Phone: NEGATED: Highlighted [id number] 10:24-0500 Height 157.48 cm Rigo Sitko AT [facility] Work Phone: NEGATED: Highlighted [id number] 10:24-0500 Height 157 cm Rigo Sitko AT [facility] Work Phone: NEGATED: Highlighted [id number] 10:24-0500 Pulse (Heart Rate) 60 /min Rigo Best AT [facility] Work Phone: NEGATED: Highlighted [id number] 10:24-0500 Weight 92.08 kg Rigo Sitko AT [facility] Work Phone: NEGATED: Highlighted [id number] 10:24-0500 Weight 92 kg Rigo Sitko AT [facility] Work Phone: Encounters Encounter Date Encounter Type Care Provider Facility Start: 09-18-2024 ambulatory Efmargarette TREVIÑO Fa cility:[facility] Start: 09-18-2024 Registered Referred Efewongbe Oleghe MD -[facility] Start: 08-28-2024 ambulatory Jairon Medel OLS Fa cility:[facility] Start: 08-28-2024 [facility] Start: 08-21-2024 ambulatory Jairon Medel Facili ty:[facility] Start: 08-21-2024 [facility] Start: 08-08-2024 End: 08-08-[address] Warner Leos MD Work Phone: -[facility] Start: 08-08-2024 End: 08-08-[address] Jairon Medel MD -[facility] Work Phone: Start: 08-08-2024 Non-patient / Non-visit Dr. Julia young MD -[facility] Work Phone: Start: 07-24-2024 End: 07-24-[address] Warner Leos MD Work Phone: -[facility] Start: 07-24-2024 End: 07-24-2024 Patient encounter procedure Jane Barth GABBY-Donnie -[facility] Work Phone: Start: 07-24-2024 End: 07-24-2024 Emergency department patient visit Dr. Warner Leos MD Work Phone: -Emergency Department Work Phone: Start: 06-27-2024 End: 06-27-[address] Warner Leos MD Work Phone: -[facility] Start: 06-27-2024 End: 06-27-[address] Jairon Medel MD -[facility] Work Phone: Start: 06-26-2024 End: 06-26-[address] Warner Leos MD Work Phone: [facility] Work Phone: Start: 06-26-2024 End: 06-26-2024 Departed Referred Jairon Ruvalcaba Start: 06-26-2024 End: 06-26-2024 ambulatory Poojamargarette Cortezdorcas TREVIÑO Facility:[facility] Start: 05-29-2024 End: 05-29-[address] Warner Leos MD Work Phone: [facility] Work Phone: Start: 05-29-2024 End: 05-29-2024 Departed Referred Jairon Ruvalcaba Start: 05-29-2024 Registered Referred Jairon Ruvalcaba Start: 05-29-2024 End: 05-29-2024 ambulatory Poojamargarette TREVIÑO Facility:[facility] Start: 05-24-2024 End: 05-24-[address] Warner Leos MD Work Phone: [facility] Work Phone: Start: 05-24-2024 End: 05-24-2024 Departed Referred Jairon Ruvalcaba Start: 05-24-2024 Registered Referred Jairon Ruvalcaba Start: 05-23-2024 End: 05-24-[address] Warner Leos MD Work Phone: [facility] Work Phone: Start: 05-23-2024 End: 05-23-2024 Patient encounter procedure Jane Lary SUPERINTENDENT LOCAL- -[facility] Work Phone: Start: 05-15-2024 End: 05-15-[address] Warner Leos MD Work Phone: [facility] Work Phone: Start: 05-15-2024 End: 05-15-2024 Departed Referred Jairon Ruvalcaba Start: 05-15-2024 Registered Referred Efmargarette Ruvalcaba Start: 05-15-2024 End: 05-15-2024 ambulatory Jairon TREVIÑO Facility:[facility] Start: 05-12-2024 End: 05-12-[address] Warner Leos MD Work Phone: [facility] Work Phone: Start: 05-12-2024 End: 05-12-2024 [facility]: Start: 05-01-2024 End: 05-01-[address] Warner Leos MD Work Phone: [facility] Work Phone: Start: 05-01-2024 End: 05-01-2024 Departed Referred Jairon Ruvalcaba Start: 05-01-2024 End: 05-01-2024 ambulatory Jairon TREVIÑO Facility:[facility] Start: 04-26-2024 End: 04-26-2024 ambulatory [facility] Facility:[facility] Start: 04-26-2024 End: 04-26-2024 Patient encounter [facility] Start: 04-11-2024 End: 04-11-2024 ambulatory Carrillomahadmakenzie Gianfranco Facility:[facility] Start: 04-11-2024 End: 04-11-[address] Jairon Medel MD -[facility] Work Phone: Start: 04-03-2024 End: 04-03-2024 Patient encounter [facility] Work Phone: Start: 04-03-2024 End: 04-03-2024 ambulatory [facility] Facility:[facility] Start: 04-03-2024 Registered Referred Jairon Ruvalcaba Start: 03-27-2024 ambulatory Jairon TREVIÑO Fa cility:[facility] Start: 03-27-2024 Registered Referred Jairon LockhartKate Ruvalcaba Start: 02-29-2024 End: 02-29-2024 ambulatory Jairon Medel Facility:[facility] Start: 02-29-2024 End: 02-29-[address] Jairon Medel MD -[facility] Work Phone: Start: 02-28-2024 End: 02-28-2024 Departed Referred Jairon LockhartKate Ruvalcaba Start: 02-28-2024 End: 02-28-2024 ambulatory Jairon TREVIÑO Facility:[facility] Start: 02-24-2024 End: 02-24-2024 ambulatory Jane Barth Facility:[facility] Start: 02-24-2024 End: 02-24-2024 Patient encounter procedure Jane Barth SUPERINTENDENT LOCAL-C -[facility] Work Phone: Start: 02-11-2024 End: 02-23-[address] LARRY THOMAS DO Facility:[facility] Start: 02-09-2024 End: 02-10-2024 Emergency department patient visit ELDA DEL ROSARIO APRN-SUPERVISOR FISH PROCESSING Facility:[facility] Start: 02-09-2024 End: 02-10-2024 Observation ELDA CARIN IGLESIAS-SUPERVISOR FISH PROCESSING [facility] Start: 01-21-2024 End: 01-21-2024 Emergency department patient visit INES DENNIS MD [facility] Start: 01-05-2024 End: 01-05-[address] LARRY THOMAS DO [facility] Start: 01-05-2024 End: 01-05-[address] LARRY THOMAS DO [facility] Start: 12-29-2023 End: 12-29-[address] LARRY THOMAS DO [facility] Start: 12-29-2023 End: 12-29-[address] LARRY THOMAS DO [facility] Start: 12-21-2023 End: 12-21-[address] LARRY THOMAS DO [facility] Start: 12-21-2023 End: 12-21-[address] LARRY THOMAS DO [facility] Start: 12-18-2023 End: 01-26-[address] LARRY THOMAS DO Facility:[facility] Start: 12-15-2023 End: 12-15-[address] LARRY THOMAS DO [facility] Start: 12-15-2023 End: 12-15-[address] LARRY THOMAS DO [facility] Start: 12-15-2023 End: 12-19-[address] LARRY THOMAS DO [facility] Start: 12-15-2023 End: 12-19-[address] LARRY THOMAS DO [facility] Start: 12-09-2023 End: 12-09-2023 Emergency department patient visit INES DENNIS MD [facility] Start: 11-29-2023 End: 11-29-2023 Emergency department patient visit SONNY STAHL DO [facility] Start: 07-08-2023 End: 07-09-[address] LARRY THOMAS DO Facility:[facility] Start: 07-08-2023 End: 07-08-[address] LARRY THOMAS DO [facility] Start: 04-14-2023 End: 04-15-2023 ambulatory MAHAD LORENZO MD Facility:[facility] Start: 04-14-2023 End: 04-14-2023 Patient encounter procedure MAHAD LORENZO MD [facility] Start: 04-09-2023 End: 05-06-[address] LARRY THOMAS DO Facility:[facility] Start: 04-09-2023 End: 02-14-[address] LARRY THOMAS DO Facility:[facility] Start: 04-07-2023 End: 04-08-[address] LARRY THOMAS DO Facility:[facility] Start: 04-07-2023 End: 04-07-2023 Patient encounter procedure MAHAD LORENZO MD [facility] Start: 03-10-2023 End: 03-11-[address] LARRY THOMAS DO Facility:[facility] Start: 12-14-2022 End: 12-15-[address] LARRY THOMAS DO Facility:[facility] Start: 2022 End: 11-09-[address] LARRY THOMAS DO Facility:[facility] Start: 2022 End: 11-09-2022 Coordination of care plan DR LARRY THOMAS DO [facility] Start: 09-16-2022 End: 09-17-[address] LARRY THOMAS DO Facility:[facility] Start: 07-16-2022 End: 07-17-[address] ANISA GOMEZ MD Facility:[facility] Start: 06-19-2022 End: 06-19-[address] ANISA GOMEZ MD [facility] Start: 06-03-2022 Telephone encounter Paula Yepez MD Work Phone: General Surgery Comment on above: Request for medical records Start: 04-15-2022 End: 04-15-[address] LARRY THOMAS DO [facility] Start: 04-14-2022 End: 04-14-[address] LARRY THOMAS DO [facility] Start: 04-06-2022 End: 04-07-2022 ambulatory PAULA ALANIZ Facility:[facility] Start: 04-06-2022 End: 04-06-2022 Patient encounter procedure Paula Alaniz MD Work Phone: General Surgery Comment on above: Abnormal ultrasound of breast; History of left breast cancer Start: 03-23-2022 End: 03-23-2022 Patient encounter procedure ALANNA WRIGHT DO [facility] Start: 03-09-2022 End: 03-09-[address] LARRY THOMAS DO [facility] Start: 02-23-2022 End: 02-23-2022 Patient encounter procedure ALANNA WRIGHT DO [facility] Start: 01-22-2022 End: 01-22-2022 Patient encounter procedure ALANNA WRIGHT DO [facility] Start: 12-25-2021 End: 12-25-2021 Emergency department patient visit INES DENNIS MD [facility] Start: 12-03-2021 End: 12-06-[address] KEVIN VIRGEN MD [facility] Start: 05-05-2021 End: 05-05-2021 Patient encounter procedure ALANNA WRIGHT DO [facility] Start: 12-11-2020 End: 12-11-2020 Patient encounter procedure SEAN POOLE MD [facility] Start: 03-01-2018 Patient encounter procedure [facility] Start: 01-17-2018 End: 01-17-2018 Patient encounter procedure Carla Dye MD Work Phone: [facility] Work Phone: Start: 05-18-2017 Patient encounter procedure [facility] Procedures Date Procedure Procedure Detail [...] Date Care Activity Detail Author Start: 07-24-2024 [facility] Start: 02-08-2022 ADVANCE DIRECTIVE DISCUSSION ADVANCE DIRECTIVE DISCUSSION [facility] [facility] Start: 02-08-2022 DEPRESSION ASSESSMENT DEPRESSION ASSESSMENT [facility] Start: 08-10-2021 COVID-19 VACCINE (5 - Booster for Moderna series) COVID-19 VACCINE (5 - Booster for Moderna series) [facility] Start: 01-17-2018 End: 01-17-2018 Appointment Appointment [facility] Work Phone: Start: 09-23-2003 BONE DENSITY BONE DENSITY [facility] Start: 09-23-2003 PNEUMOCOCCAL: 65+ (1 - PCV) PNEUMOCOCCAL: 65+ (1 - PCV) [facility] Start: 1988 SHINGRIX VACCINE (1 of 2) SHINGRIX VACCINE (1 of 2) [facility] Start: 09-23-1983 DIABETES SCREEN DIABETES SCREEN [facility] Start: 1957 Urine microalbumin profile DTAP,TDAP,TD (1 - Tdap) [facility] Patient Education [facility] Work Phone: [facility] Work Phone: Immunizations Immunization Date Immunization Notes Care Provider Fa cili 12-27-2022 SARS-CoV-2 (COVID-19 ) [id number] MAHAD LORENZO MD [facility] 11-05-2022 zoster vaccine recombinant MAHAD LORENZO MD [facility] 10-03-2022 influenza virus vacc ine, unspecified formulation MAHAD LORENZO MD [facility] 09-15-2022 pneumococcal 20-lisa nt conjugate vaccine MAHAD LORENZO MD [facility] 01-10-2022 influenza virus vacc ine, unspecified formulation MAHAD LORENZO MD [facility] 06-15-2021 SARS-CoV-2 (COVID-19 ) mRNA-[id number] vaccine MAHAD LORENZO MD [facility] 12-12-2020 SARS-CoV-2 (COVID-19 ) mRNA-1273 vaccine MAHAD LORENZO MD [facility] Comment on above: Result Comment: 2022: [id number] 10-22-2020 influenza virus vacc ine, unspecified formulation MAHAD LORENZO MD [facility] 03-28-2020 COVID-19, mRNA, LNP- S, PF, 100 mcg/ 0.5 mL dose; Translations: [Moderna COVID-19 Vaccine] SEAN POOLE MD [facility] 02-29-2020 COVID-19, mRNA, LNP- S, PF, 100 mcg/ 0.5 mL dose; Translations: [Moderna COVID-19 Vaccine] SEAN POOLE MD [facility] 10-12-2019 influenza virus vacc ine, unspecified formulation SEAN POOLE MD [facility] Comment on above: Result Comment: michael peck administered 10-11-2019 influenza virus vacc ine, unspecified formulation MAHAD LORENZO MD [facility] 10-11-2019 pneumococcal conjuga te vaccine, 13 valent SEAN POOLE MD [facility] 10-07-2018 influenza virus vacc ine, unspecified formulation SEAN POOLE MD [facility] 12-21-2017 influenza virus vacc ine, unspecified formulation SEAN POOLE MD [facility] 10-27-2016 influenza virus vacc ine, unspecified formulation SEAN POOLE MD [facility] 10-29-2015 influenza virus vacc ine, unspecified formulation SEAN POOLE MD [facility] 10-30-2014 influenza virus vacc ine, unspecified formulation SEAN POOLE MD [facility] 10-31-2013 influenza virus vacc ine, unspecified formulation SEAN POOLE MD [facility] 11-01-2012 influenza virus vacc ine, unspecified formulation SEAN POOLE MD [facility] 01-09-2005 pneumococcal polysaccharide vaccine, 23 valent SEAN POOLE MD [facility] No information available. Rigo Best AT [facility] Work Phone: Payers Date Payer Category Payer Self-pay [id number] 2017 Private Health Insurance [id number] 2017 Unknown [id number] 2003 Medicare [id number]. 1.13.159.2.7.3.6 [id number] 2003 Medicare [id number] 1940 Unknown [id number] 2.840.1.307717.3.579.2. 1940 Unknown [id number] 2..840.1.503977.3.579.2. 1938 Unknown [id number] 2.16.840.1.426513.3.579.2. 1938 Unknown [id number] 2.16.840.1.408584.3.579.2.62 1938 Unknown [id number] 2..840.1.606443.3.579.2. 1938 Unknown [id number] 2.16.840.1.781836.3.579.2.627 1938 Unknown [id number] 2..840.1.633545.3.579.2. 1938 Unknown [id number] 2..840.1.718621.3.579.2.62 1938 Unknown [id number] 2.840.1.809135.3.579.2. 1938 Unknown [id number] 2.840.1.289546.3.579.2. 1938 Unknown [id number] .840.1.861997.3.579.2. 1938 Unknown [id number] .840.1.590115.3.579.2. 1938 Unknown [id number] .840.1.017861.3.579.2. 1938 Unknown [id number] .840.1.140532.3.579.2. 1938 Unknown [id number] .840.1.106401.3.579.2. 1938 Unknown [id number] 840.1.805907.3.579.2. 1938 Unknown [id number] .840.1.497086.3.579.2.62 Medicare MEDICARE PART A B [id number] 1 [id number] Unknown [id number] 2.840.1.587149.3.579.2.462 Unknown [id number] 2.840.1.045033.3.579.2.462 Unknown [id number] 2.840.1.245601.3.579.2.462 Unknown [id number] 2.16.840.1.561199.3.579.2.462 Unknown [id number] 2.16.840.1.345316.3.579.2.462 Unknown [id number] 2.16.840.1.137681.3.579.2.462 Unknown [id number] 2.16.840.1.194946.3.579.2.462 Unknown [id number] 2.16.840.1.969682.3.579.2.462 Unknown [id number] 2.16.840.1.916594.3.579.2.462 Unknown [id number] 2.16.840.1.541946.3.579.2.462 Unknown [id number] 2.840.1.541429.3.579.2.462 Unknown [id number] 2.840.1.499801.3.579.2.462 Unknown [id number] 2.16.840.1.614894.3.579.2.462 Unknown [id number] 2.840.1.763261.3.579.2.462 Unknown [id number] 2.16.840.1.794857.3.579.2.462 Unknown [id number] 2.16840.1.401188.3.579.2.462 Unknown [id number] 2.840.1.089692.3.579.2.462 Unknown [id number] 2.16.840.1.897160.3.579.2.462 Unknown [id number] 2.16.840.1.218101.3.579.2.462 Unknown [id number] 2.16.840.1.029265.3.579.2.462 Unknown [id number] 2.16.840.1.097725.3.579.2.462 Unknown [id number] 2.16840.1.301305.3.579.2.462 Social History Date Type Detail Facility Start: 01-17-2018 End: 01-17-2018 Assertion Unknown if ever smoked [facility] Work Phone: Start: 04-07-2019 End: 08-26-2024 Never smoked tobacco (finding) [facility] Sex Assigned At [facility] Start: 04-06-2022 Tobacco use and exposure Smokeless tobacco non-user [facility] Start: 04-06-2022 Alcohol intake 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 Start: 1940 Sex Assigned At Female W [facility] Medical Equipment Procedure Code Equipment Code [...] gray q2hrs Performed Other: 7AM - 4PM [facility] 02-10-2024 Functional Status Financial gaston gement, Home management, Laundry, Meal preparation, Personal ADL, Shopping [facility] 02-10-2024 Functional Status Sup Jerrell Garcia [facility] 02-10-2024 Functional Status Identified as high risk, Door open, Non-Slip footwear, Room check performed [facility] 02-10-2024 [facility] Status Jerrell Garcia [facility] 02-10-2024 [facility]-09[facility] Functional Status Jerrell Garcia [facility] 01-21-2024 Functional Status Minimum assistance [facility] 01-21-2024 Functional Status Independent Jerrell Garcia [facility] 12-09-2023 Functional Status Minimum assistance [facility] 12-09-2023 Functional Status ID band on, Call device within reach, Bed in low position, Wheels locked, Upper/Half-Length side-rails up, Visitor at bedside, Safety level maintained [facility] 11-29-2023 Functional Status Up ad nazario [facility] 11-29-2023 Functional Status Standard Safet y ID band on, Call device within reach, Bed in low position, Wheels locked, Upper/Half-Length side-rails up, Visitor at bedside [facility] 06-19-2022 Functional Status Sensory Deficits None A [facility] 12-25-2021 Functional Status Independent Jerrell Garcia [facility] 12-06-2021 Functional Status None Jerrell Garcia [facility] 12-06-2021 Functional Status Room check performed [facility] 12-06-2021 Functional Status Jerrell [facility] 12-06-2021 Functional Status Jerrell Garcia [facility] 12-05-2021 Functional Status Jerrell Garcia [facility] 12-05-2021 Functional Status Jerrell Garcia [facility] 12-05-2021 Functional Status Mod A 1 Jerrell Garcia [facility] 12-04-2021 Functional Status Single level home [facility] 12-04-2021 Functional Status Jerrell Garcia [facility] 12-04-2021 [facility] Status [facility] 12-04-2021 Functional Status [facility] 12-04-2021 Functional Status SCD On/Re-appl ied bilateral knee high [facility] 12-03-2021 Functional Status Ambulation in Room [facility] Mental Status Date Assessment Result Facility 02-10-2024 Mental Status Not oriented to time, Forgetful, Follows simple commands [facility] 02-09-2024 Mental Status [facility] 02-09-2024 Mental Status [facility] 01-21-2024 Mental Status Orientation Not oriented to situation, Forgetful [facility] 01-21-2024 Mental Status [facility] 12-09-2023 Mental Status Orientation Oriented x 4 [facility] 12-09-2023 Mental Status [facility] 11-29-2023 Mental Status Orientation Oriented x 4 [facility] 11-29-2023 Mental Status [facility] 12-25-2021 Mental Status Orientation Oriented x 4 [facility] 12-06-2021 Mental Status Oriented x 4, Forgetful [facility] 12-06-2021 Mental Status [facility] 12-06-2021 Mental Status [facility] Clinical Notes 12-03-2021 to 07-24-2024 Note Date & Type Note Facility 07-24-2024 Discharge summary [facility] 07-24-2024 Radiology Diagnostic study note [facility] Imaging Services [address], [place] [address] HIP, UNI W/ Pelvis 2-3 Views MR#: [id number] Acct: [id number] Name: CT DALTON Rep #: [id number] : 1940 F 83 From: Jane Vance MD PCP: Dr. Jairon Medel MD Status: R EG ER Study:HIP, UNI W/ Pelvis 2-3 Views Date of Ex am: 07/24/24 Exam# [id number] Ordering Dr: Sharon Harry MD PROCEDURE: HIP, [...] Right hip moderate degenerative changes. [facility] CC: Dr. Jairon Medel MD; Dr. 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 Follow Up Care 02/09/2024 19:37:05 With:LARRY THOMAS DO Address: [address] [place] [phone] When:02/16/2024 09:30:00 Comments:This is your post-hospital appointment. Follow-up as scheduled. [facility] 02-10-2024 Note Discharge Instructions Thank you for allowing [facility] to assist you with your healthcare needs. The following is important discharge information regarding your hospital visit. Your Care Team SUSY ALBRIGHT APRN-SUPERVISOR FISH PROCESSING Your Diagnosis (HFpEF) heart failure with preserved ejection fraction Dementia Weakness What to do next Scheduled Follow-Up Appointments Appointment Type When With Where Contact Information StatusPC OV 02/16/2024 09:30 AM EST LARYR THOMAS DO [address] [phone] Confirmed Follow Up Appointments Follow Up with LARRY THOMAS DO When:02/16/2024 09:30 AM EST Where:[address] [place] [phone] Additional Information: This is your post-hospital appointment. [...] pharmacies. Medication Leaflets memantine (cyndie MAN teen) Katherine Murphy What is the most important information I [...] may report side effects to FDA at 7-391-BUJ-6297. What other drugs will affect memantine? Tell [...] may interact with memantine, including prescription and lehs-tjm-lhclpip medicines, vitamins, and herbal products. Not all [...] to ensure that the information provided by [employer]. ('[employer]') is accurate, up-to-date, and complete, but no guarantee is made to that effect. Drug information contained herein may be time sensitive. [employer] information has been compiled for use by healthcare practitioners and consumers in the [place] and therefore [employer] does not warrant that uses outside of the [place] are appropriate, unless specifically indicated otherwise. As It Iss drug information does not endorse drugs, diagnose patients or recommend therapy. As It Iss drug information is an informational resource designed [...] effective or appropriate for any given patient. [employer] does not assume any responsibility for any aspect of healthcare administered with the aid of information [employer] provides. The information contained herein is not intended to cover all possible uses, directions, precautions, warnings, drug interactions, allergic reactions, or adverse effects. If you have questions about the drugs you are taking, check with your doctor, nurse or pharmacist. Copyright 6065-1849 [employer]. Version: 5.01. Revision Date: 09/21/2022. Education Materials [...] Follow these instructions at home: Medicines Take bcok-jah-dlknzcy and prescription medicines only as told by [...] 01/07/2009 Document Revised: 04/11/2019 Document Reviewed: 04/11/2019 [employer] Patient Education 2020 [employer] Additional Information VACCINATE! IT SAVES LIVES! Members of the community who have not yet received the COVID-19 vaccine and would like to receive it can visit one of [facility] vaccine clinics. There are many vaccine clinic locations within the [facility]. For locations and available times, please visit https://gettheshot.coronavirus.[place].gov/. It is important to note that some COVID mobile vaccine clinics are held outdoors and may be canceled in rainy or stormy conditions. To learn more about pediatric vaccinations (ages 5-11), we invite you to visit the [facility] webpage. https://www.akronZe Frank Gamess.org/pag es/0893-Iqsle-Ihgkjzonebk-Frequent oz-Rukcq-Jchtazmep.html To learn more about the COVID-19 vaccine, we invite you to visit the CDC website for a list of frequently asked questions.https://www.cdc.gov/armando navirus/2019-ncov/vaccines/faq.htm l [facility] Patient Portal Access Instructions: Stay connected with your healthcare team and access your personal medical information anytime with the [facility] Patient Portal. Please follow the directions below to create your [facility] account: 1.Access the email account you provided upon registration to the hospital/physician office.2.Look for an invitation email from [facility].3.Open the email and access the invitation link: Accept Invitation to [facility].4.Fill in the required alejandro to create your account. To access your account, visit [employer]. Click the blue button labeled Access Patient [...] you will allow to register on the [facility] Patient Portal for access to your information. You can also access the [facility] Patient Portal on the [employer]Eatwhere angelica. Simply click on Patient Portal and then log into your account. If you would like to receive a full copy of your medical records, please contact the [facility] Medical Records Department by calling [phone], Wednesday through Wednesday between 8 a.m. and [...] Call your local pharmacy or go to [email or web address] to find one close to you.3.Make use of household items: Use cat litter or old coffee grounds to dispose medications if other options are not available. Mix your drugs with these household products, seal them in an airtight container and throw it into the garbage. Call [facility]: [phone] to be sure your drugs can be [...] CHART COPY. Signatures Patient Education Materials Dementia, Frsw-du-Euuw Medication Leaflets memantine My discharge plan and instructions have been reviewed and explained to me and ISHA CAROLE A understand my current condition and have read and understand these discharge instructions. I have received a written copy of the plan/instructions. If I have questions, I am aware that I should contact my doctor. 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 Weakness 2. (HFpEF) heart failure [...] Date:02/16/2024 09:30:00 AM Scheduled Provider:LARRY THOMAS DO Location:[facility] Appointment Type:[facility] 01-02-2025 Note Date of Service 02/10/24 Chief Complaint patient called EMS with complaint of BLE swelling. patient poor historian but continues to report BLE swelling on arrival. also states that she feels weak. History of Present Illness 83 year old female with past medical history of dementia, urinary frequency, dizziness, breast cancer, CKD Stage 3, anemia, HLD, HFpEF. Patient presented to [facility] ED on 02/09/24 due to family [...] by SUSY ALBRIGHT on 02/10/2024 10:21 AM [facility]01-01-2025 Note* Exam Date Time Procedure Performing Provider Status 02/09/24 8:10 PM XR Chest 1 View EILEEN CHRISTINE DO; Arnaldo h (Verified) [id number] ORIGINAL EXAMINATION: ONE XRAY VIEW OF THE [...] 02/09/2024 9:08:10 PM Ordering Provider: TRIXIE BARONE [facility]01-01-2025 Note* Exam Date Time Procedure Performing Provider Status 02/09/24 7:59 PM EKG [ED AOH] - CV MD TRIXIE BARONE MD; Auth (Verified) ECG Final Report Sinus rhythm LVH by voltage Inferior infarct, old Anterior Q waves, possibly due to LVH Electronic Signature: MD TRIXIE BARONE MD 02/09/2024 20:03:00 [facility]12-13-2024 Hospital Discharge instructions Patient Education [...] mid-urethra. Front view of female urinary tract. 8938-7[address] The [employer] [place] [address]. All rights reserved. This information is not intended as a substitute for professional medical care. Always follow yourhealthcare professional's instructions. Follow Up Care 01/21/2024 09:33:55 With:LARRY THOMAS DO Address: [address] [place] [address] [place] [phone]- [phone] When:2-4 days [facility] 12-13-2024 Note Discharge Instructions Thank you for allowing [facility] to assist you with your healthcare needs. The following is importantdischarge information regarding your hospital visit. Diagnosis from Today's Visit Bladder pain What to Do Next Instructions from Your Care Team No qualifying data available. Post Acute Orders No qualifying data available. You Need to Schedule the Following Appointments Follow Up with LARRY THOMAS DO When:Within 2-4 days Where:[address] [place], [place] [address]p [place] [address]- [phone] Allergies NKA Medications Please ask your primary [...] mid-urethra. Front view of female urinary tract. 1187-2106 [employer]. [address] [place] [address], [place] [address]. All rights reserved. This information is not intended as a substitute for professional medical care. Always follow yourhealthcare professional's instructions. Additional Information VACCINATE! IT SAVES LIVES! Members of the community who have not yet received the COVID-19 vaccine and would like to receive it can visit one of [facility] vaccine clinics. There are many vaccine clinic locations within the [facility]. For locations and available times, please visit www.gettheshot.coronavirus.[place].gov/. It is important to note that some COVID mobile vaccine clinics are held outdoors and may be canceled in rainy or stormy conditions. To learn more about pediatric vaccinations (ages 5-11), we invite you to visit the [facility] webpage. https://www.[facility].org/pages/4303-Vnzuh-Ywpbecciawt-Pvivheguxu-Qqynq-Hsh stions.htmlTo learn more about the COVID-19 vaccine, we invite you to visit the CDC website for a list of frequently asked questions. https://www.cdc.gov/coronavirus/2019-ncov/vaccines/faq.html [facility] Patient Portal Access Instructions: Stay connected with your healthcare team and access your personal medical information anytime with the [facility] Patient Portal. If you would like a full copy of your medical records please contact the [facility] Medical Records Department Wednesday through Wednesday between 8a.m. and 4:30p.m. Please follow the directions below to access the portal: 1.Access the email account you provided upon registration to the [facility].2.Look for an invitation email from [facility].3.Open the email and access the invitation link: Accept Invitation to [facility]4.Fill in the required alejandro to create your [...] you will allow to register on the [facility] Patient Portal for access to your information. You can also access the [facility] Patient Portal on the iPrint angelica. Simply click on Health Records under Make My plate and then click on the [employer] logo. HOW TO SAFELY DISPOSE OF PRESCRIPTION [...] Call your local pharmacy or go to [email or web address]/[email or web address] to find one close to you.3.Make use of household items: Use cat litter or old coffee grounds to dispose medications if other options arenot available. Mix your drugs with these household products, seal them in an airtight container andthrow it into the garbage. Call [facility]: [phone] to be sure your drugs can be [...] aware that I should contact my doctor. Patient/Learn To Swim Instructor Signature: Date/Time: Relationship to Patient: Witness Name/Signature: Date/Time: [facility]11-12-2024 Note ORIGINAL EXAMINATION: AP lateral [...] Sign Date: 12/21/2023 4:34:05 PM Ordering Provider: [facility]11-12-2024 Note ORIGINAL EXAMINATION: TWO XRAY VIEWS [...] Sign Date: 12/21/2023 4:21:17 PM Ordering Provider: [facility]11-09-2024 Note. MICRO - Microbiology PROCEDURE: Urine [...] This test was performed at: [facility], [address] [place] [address], [phone] , [facility]10-31-2024 Hospital Discharge instructions Patient Education 12/09/2023 [...] mid-urethra. Front view of female urinary tract. 2663-9928 [employer]. [address] [place] [address]. All rights reserved. This information is not intended as a substitute for professional medical care. Always follow yourhealthcare professional's instructions. Follow Up Care 12/09/2023 08:33:51 With:LARRY THOMAS DO Address: [address] [place] [phone] When:2-4 days [facility] 10-31-2024 Note Discharge Instructions Thank you for allowing [facility] to assist you with your healthcare needs. The following is importantdischarge information regarding your hospital visit. Diagnosis from Today's Visit Urinary frequency What to Do Next Instructions from Your Care Team No qualifying data available. Post Acute Orders No qualifying data available. You Need to Schedule the Following Appointments Follow Up with LARRY THOMAS DO When:Within 2-4 days Where:[address] [place] [phone] Allergies NKA Medications Please ask your primary [...] mid-urethra. Front view of female urinary tract. [phone] The [employer]. [address] [place] [address], [place] [address]. All rights reserved. This information is not intended as a substitute for professional medical care. Always follow yourhealthcare professional's instructions. Additional Information VACCINATE! IT SAVES LIVES! Members of the community who have not yet received the COVID-19 vaccine and would like to receive it can visit one of [facility] vaccine clinics. There are many vaccine clinic locations within the [facility]. For locations and available times, please visit www.gettheshot.coronavirus.[place].gov/. It is important to note that some COVID mobile vaccine clinics are held outdoors and may be canceled in rainy or stormy conditions. To learn more about pediatric vaccinations (ages 5-11), we invite you to visit the [facility] webpage. https://www.[facility].org/pages/3104-Nwrxf-Qottyxcaprv-Qphphvgedd-Nppfa-Lwr stions.htmlTo learn more about the COVID-19 vaccine, we invite you to visit the CDC website for a list of frequently asked questions. https://www.cdc.gov/coronavirus/2019-ncov/vaccines/faq.html [facility] Patient Portal Access Instructions: Stay connected with your healthcare team and access your personal medical information anytime with the [facility] Patient Portal. If you would like a full copy of your medical records please contact the [facility] Medical Records Department Wednesday through Wednesday between 8a.m. and 4:30p.m. Please follow the directions below to access the portal: 1.Access the email account you provided upon registration to the [facility].2.Look for an invitation email from [facility].3.Open the email and access the invitation link: Accept Invitation to [facility]4.Fill in the required alejandro to create your account. Sign into www.Greengage Mobile with your username and password that you [...] you will allow to register on the [facility] Patient Portal for access to your information. You can also access the [facility] Patient Portal on the Synaffix. Simply click on Health Records under Make My plate and then click on the [employer] logo. HOW TO SAFELY DISPOSE OF PRESCRIPTION [...] Call your local pharmacy or go to http://bit.DropMat/3B8Od1h to find one close to you.3.Make use of household items: Use cat litter or old coffee grounds to dispose medications if other options arenot available. Mix your drugs with these household products, seal them in an airtight container andthrow it into the garbage. Call [facility]: [phone] to be sure your drugs can be [...] aware that I should contact my doctor. 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 [id number] Hospital Discharge instructions Patient Education 11/29/2023 12:04:12 [...] or swelling over your back or spine 6584-2167 [employer]. [address] [place] [address]. All rights reserved. This information is not intended as a substitute for professional medical care. Always follow yourhealthcare professional's instructions. Follow Up Care 11/29/2023 08:56:34 With:Go to emergency room if symptoms worsen Address:Unknown When:2-4 days With:LARRY THOMAS DO Address: [address] [facility] [place] [address] [phone] When:2-4 days [facility] 10-21-2024 Note Discharge Instructions Thank you for allowing [facility] to assist you with your healthcare needs. [...] with LARRY THOMAS DO When:Within 2-4 days Where:[address] [place] [address] [place] [address] [phone] Allergies NKA Medications Please ask your primary [...] or swelling over your back or spine [phone] [employer]. [address] [place] [address]. All rights reserved. This information is not intended as a substitute for professional medical care. Always follow yourhealthcare professional's instructions. Additional Information VACCINATE! IT SAVES LIVES! Members of the community who have not yet received the COVID-19 vaccine and would like to receive it can visit one of [facility] vaccine clinics. There are many vaccine clinic locations within the [facility]. For locations and available times, please visit www.[email or web address].[place].gov/. It is important to note that some COVID mobile vaccine clinics are held outdoors and may be canceled in rainy or stormy conditions. To learn more about pediatric vaccinations (ages 5-11), we invite you to visit the [facility] webpage. https://www.[facility].org/pages/9108-Osixd-Qyzerpaeaoz-Rondhsxpyx-Yetrm-Spb stions.htmlTo learn more about the COVID-19 vaccine, we invite you to visit the CDC website for a list of frequently asked questions. https://www.cdc.gov/coronavirus/2019-ncov/vaccines/faq.html [facility] Patient Portal Access Instructions: Stay connected with your healthcare team and access your personal medical information anytime with the [facility] Patient Portal. If you would like a full copy of your medical records please contact the [facility] Medical Records Department Wednesday through Wednesday between 8a.m. and 4:30p.m. Please follow the directions below to access the portal: 1.Access the email account you provided upon registration to the [facility].2.Look for an invitation email from [facility].3.Open the email and access the invitation link: Accept Invitation to [facility]4.Fill in the required alejandro to create your account. Sign into www.Greengage Mobile with your username and password that you [...] you will allow to register on the [facility] Patient Portal for access to your information. You can also access the [facility] Patient Portal on the iPrint angelica. Simply click on Health Records under CollexpoData and then click on the [employer] logo. HOW TO SAFELY DISPOSE OF PRESCRIPTION [...] Call your local pharmacy or go to http://SquareOne.DropMat/5G3Ni6w to find one close to you.3.Make use of household items: Use cat litter or old coffee grounds to dispose medications if other options arenot available. Mix your drugs with these household products, seal them in an airtight container andthrow it into the garbage. Call [facility]: [phone] to be sure your drugs can be [...] aware that I should contact my doctor. Patient/Learn To Swim Instructor Signature: Date/Time: Relationship to Patient: Witness Name/Signature: Date/Time: [facility]10-21-2024 Note ORIGINAL HISTORY: Pain COMPARISON: [...] 11/29/2023 11:51:51 AM Ordering Provider: SONNY [facility]03-06-2024 Note ORIGINAL EXAMINATION: CT OF THE HEAD [...] Date: 04/14/2023 10:35:22 AM Ordering Provider: MAHAD [facility]04-26-2023 Miscellaneous Notes* Telephone Encounter - Brenton Jennings RN - 06/03/2022 11:26 AM EDT Received a request from [facility] for all of Ct's left breast cancer treatment medical records. Faxed the request to medical records on [facility], fax confirmation sheet received. Brenton Jennings RN documented in [facility] Note ORIGINAL EXAMINATION: ULTRASOUND OF THE [...] for hydronephrosis on this exam. Interpreted by: Selywn Shah MD Preliminary Report By: Selwyn Shah MD Electronically signed By Selwyn Shah MD Dictated Date: 04/15/2022 10:13:41 AM Prelim Date: 04/15/2022 10:15:33 AM Sign Date: 04/15/2022 10:15:33 AM Ordering Provider: LARRY THOMAS [facility]03-08-2023 Note ORIGINAL EXAMINATION: ULTRASOUND OF [...] Sign Date: 04/15/2022 10:15:33 AM Ordering Provider: [facility]02-28-2023 NoteHNO ID: [id number] Author: Paula Alaniz MD Service: ? Author [...] needle core breast biopsies on 03/23/2022 at [facility]. Findings of fat necrosis, inflammation and dense [...] cancer Kidney Disease Sister Heart disease Brother OR The review of systems data was entered by the nurse and reviewed by ia Nursing Notes: Mini Brooke LPN 04/06/2022 9:50 [...] of skin c (more content not included)... [facility]02-28-2023 History of Present illness Narrative* Paula [...] needle core breast biopsies on 03/23/2022 at [facility]. Findings of fat necrosis, inflammation and dense [...] cancer Kidney Disease Sister Heart disease Brother OR The review of systems data was entered by the nurse and reviewed by ia Nursing Notes: Mini Brooke LPN 04/06/2022 9:50 [...] her studies and testing were done at [facility], I have recommended that she proceed with her evaluation/treatment there. The breast radiologists there have recommended wire localization lumpectomy of the left breast. I have told her that I could offer her the same but it would be at [facility]. She states thatshe would prefer [facility] as it is closer to home. The [...] Low Paula Alaniz MD documented in this encounterProm[facility]02-27-2023 Nurse Note* Mini Brooke, ASSOCIATE DIRECTOR - 04/06/2022 9:47 AM EST REVIEW OF [...] ago Mini Brooke LPN documented in this encounterProm[facility]12-15-2022 Note ORIGINAL [place]: [place] [address] PROCEDURE FOR: CT DALTON [address] [place], [place] [id number] Home: PID#: [id number] Exam#: [id number] : 1940 Age: 81 TO: ALANNA WRIGHT DO [facility] [place] [address] Fax: NO FAX EXAMINATION: ULTRASOUND OF THE [...] ALANNA WRIGHT CLINICAL: MAMMOGRAPHIC DENSITY LEFT BREAST. Surg Nurse: JOSIE RUIZ RT(R) RDMS letter sent: Biopsy Recommended BI-RADS 4 and 5 Ultrasound BI-RADS: 4 Suspicious for malignancy [facility]12-15-2022 Note ORIGINAL FROM: [place] [address] PROCEDURE FOR: CT JeterSimeon DALTON [address] [place], [place] [id number] Home: PID#: [id number] Exam#: [id number] : 1940 Age: 81 TO: ALANNA WRIGHT DO [facility] [place] [address] Fax: NO FAX EXAMINATION: ULTRASOUND OF THE [...] ALANNA WRIGHT CLINICAL: MAMMOGRAPHIC DENSITY LEFT BREAST. Surg Nurse: JOSIE RUIZ RT(R) RDMS letter sent: Biopsy Recommended BI-RADS 4 and 5 Ultrasound BI-RADS: 4 [facility] Hospital Discharge instructions Patient Education 12/25/2021 17:00:50 Dizziness, Uncertain Cause Dizziness (Uncertain Cause) Dizziness is a common symptom. It may be described as lightheadedness, spinning, or feeling like you are going to faint. Dizziness can have many causes. Be sure to tell the healthcare provider about: All medicines you take, including prescription, uhuh-rna-vcfvemg, herbs, and supplements Any other symptoms you [...] Chest, arm, neck, back, or jaw pain 5116-7568 [employer]. [address] [place] [address]. All rights reserved. This information is not [...] medicine was given, you may use an tabm-mfx-bromjyx product made for clearingearwax (such as Debrox or Murine Earwax Drops). These contain carbamide peroxide and are available wfpg-ldr-oxiuzmn. Lie down with the blocked ear facing [...] ear Headache, neck pain or stiff neck 8933-7738 [employer]. [address] [place] [address]. All rights reserved. This information is not intended as a substitute for professional medical care. Always follow yourhealthcare professional's instructions. Follow Up Care 12/25/2021 15:48:16 With:ALANNA WRIGHT DO Address: [address] [place] [address] [place] [phone] When:2-4 days [facility] 11-17-2022 Note Discharge Instructions Thank you for allowing [facility] to assist you with your healthcare needs. [...] WRIGHT DO When Within 2-4 days Where: [facility] [place] [phone] Allergies NKA Medications Please ask your primary [...] about: All medicines you take, including prescription, evpq-oqh-msanbom, herbs, and supplements Any other symptoms you [...] Chest, arm, neck, back, or jaw pain 7679-1755 [employer]. [address] [place] [address]. All rights reserved. This information is not [...] medicine was given, you may use an rtfv-zpo-eykugrc product made for clearingearwax (such as Debrox or Murine Earwax Drops). These contain carbamide peroxide and are available uyss-dxe-prnqhrr. Lie down with the blocked ear facing [...] ear Headache, neck pain or stiff neck 9052-1053 [employer]. [address] [place] [address]. All rights reserved. This information is not intended as a substitute for professional medical care. Always follow yourhealthcare professional's instructions. Additional Information VACCINATE! IT SAVES LIVES! Members of the community who have not yet received the COVID-19 vaccine and would like to receive it can visit one of [facility] vaccine clinics. There are many vaccine clinic locations within the [facility]. For locations and available times, please visit www.[email or web address].[place].org. It is important to note that some COVID mobile vaccine clinics are held outdoors and may be canceled in rainy orstormy conditions. To learn more about pediatric vaccinations (ages 5-11), we invite you to visit the [facility] webpage. https://www.[facility].org/pages/3788-Qyolw-Vlwzoxuwgsj-Syhtwewpag-Nxiey-Yhq stions.htmlTo learn more about the COVID-19 vaccine, we invite you to visit the [employer] website for a list of frequently asked questions. https://Servicelink HoldingsTongCard Holdings/assets/Oebzvher-ssi-Oqjcqflx/reiiv-Alqmtzd-Djfnrwhfdb _Asked-Questions.pdf [facility] Patient Portal Access Instructions: Stay connected with your healthcare team and access your personal medical information anytime with the [facility] Patient Portal. If you would like a full copy of your medical records please contact the [facility] Medical Records Department Wednesday through Wednesday between 8a.m. and 4:30p.m. Please follow the directions below to access the portal: 1.Access the email account you provided upon registration to the [facility].2.Look for an invitation email from [facility].3.Open the email and access the invitation link: Accept Invitation to [facility]4.Fill in the required alejandro to create your account. Sign into www.Greengage Mobile with your username and password that you [...] you will allow to register on the [facility] Patient Portal for access to your information. You can also access the [facility] Patient Portal on the iPrint angelica. Simply click on Health Records under CollexpoData and then click on the [facility] logo. [...] Call your local pharmacy or go to http://bit.DropMat/5Q5Nb6g to find one close to you.3.Make use of household items: Use cat litter or old coffee grounds to dispose medications if other options arenot available. Mix your drugs with these household products, seal them in an airtight container andthrow it into the garbage. Call [facility]: [phone] to be sure your drugs can be [...] aware that I should contact my doctor. Patient/Learn To Swim Instructor Signature: Date/Time: Relationship to Patient: Witness Name/Signature: [facility] Discharge instructions Patient Education 12/06/2021 14:31:46 Dizziness, Mwzv-la-Watp Dizziness Dizziness is a common problem. It [...] balance is fine. If you need to clinical staff educator one place for a long time, move [...] Watch your dizziness for any changes. Take wcpx-rei-ctgsfcl and prescription medicines only as told by [...] 01/14/2012 Document Revised: 01/28/2018 Document Reviewed: 02/11/2017 [employer] Patient Education 2020 [employer]. 12/06/2021 14:31:38 Fall Prevention and Home Safety, Bvpt-xd-Caih Fall Prevention and Home Safety Falls cause [...] Document Reviewed: 04/26/2012 ExitCare Patient Information 2015 [employer]. This information is not intended to replace advicegiven to you by your health care provider. Make sure you discuss any questions you have with your health care provider. Follow Up Care 12/03/2021 14:18:30 With:[facility], Address:Unknown When:1-2 days With:ALANNA RWIGHT DO Address: [address] [place] [address]- When:1-2 days Comments:Please call the office to schedule a follow up appointment [facility] 10-29-2022 Note Discharge Instructions Thank you for allowing [facility] to assist you with your healthcare needs. [...] Bilateral w/ Fer 12/12/2021 03:00 PM [facility] Follow Up Appointments Follow Up with [facility], When Within 1-2 days Follow Up with ALANNA WRIGHT DO When Within 1-2 days Why: Please call the office to schedule a follow up appointment Where: [address] [place] [address]- The Following Activity and Diet Have Been [...] balance is fine. If you need to clinical staff educator one place for a long time, move [...] Watch your dizziness for any changes. Take aoxn-jfp-hntjsqf and prescription medicines only as told by [...] 01/14/2012 Document Revised: 01/28/2018 Document Reviewed: 02/11/2017 [employer] Patient Education 2020 [employer] Fall Prevention and Home Safety Falls [...] Document Reviewed: 04/26/2012 ExitCare Patient Information 2015 [employer]. This information is not intended to replace advicegiven to you by your health care provider. Make sure you discuss any questions you have with your health care provider. Additional Information VACCINATE! IT SAVES LIVES! Members of the community who have not yet received the COVID-19 vaccine and would like to receive it can visit one of [facility] vaccine clinics. There are many vaccine clinic locations within the [facility]. For locations and available times, please visit https://[email or web address].[place].gov/. It is important to note that some COVID mobile vaccine clinics are held outdoors and may be canceled in rainy or stormy conditions. To learn more about pediatric vaccinations (ages 5-11), we invite you to visit the [facility] webpage. https://www.[facility].org/pages/6836-Fgzsc-Yatsdyuucsw-Oltfvfwyyt-Rsgii-Hqu stions.htmlTo learn more about the COVID-19 vaccine, we invite you to visit the [facility] website for a list of frequently asked questions. https://plainview.org/assets/Fubsmxsn-cwp-Hiitcvjb/hyyjg-Vclnkbg-Jntnkyatoz _Asked-Questions.pdf [facility] Patient Portal Access Instructions: Stay connected with your healthcare team and access your personal medical information anytime with the [facility] Patient Portal.If you would like a full copy of your medical records, please contact the [facility] Medical Records Department, Wednesday through Wednesday between 8a.m. and 4:30p.m. Please follow the directions below to access the portal: 1.Access the email account you provided upon registration to the hospital.2.Look for an invitation email from [facility].3.Open the email and access the invitation link: Accept Invitation to [facility]4.Fill in the required alejandro to create your [...] you will allow to register on the [facility] Patient Portal for access to your information. You can also access the [facility] Patient Portal on the Synaffix. Simply click on Health Records under Make My plate and then click on the [facility] logo. [...] Call your local pharmacy or go to http://SquareOne.DropMat/9N2Yr5m to find one close to you.3.Make use of household items: Use cat litter or old coffee grounds to dispose medications if other options arenot available. Mix your drugs with these household products, seal them in an airtight container andthrow it into the garbage. Call [facility]: [phone] to be sure your drugs can be [...] CHART COPY. Signatures Patient Education Materials Dizziness, Rewi-tp-Nbju Fall Prevention and Home Safety, Udvv-nz-Iylp Medication Leaflets My discharge plan and instructions have been reviewed and explained to me and I,CT DALTON understand my current condition and have read and understand these discharge instructions. I have received a written copy of the plan/instructions. If I have questions, I am aware that I should contact my doctor. 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 [id number] Note Discharge Instructions Thank you for allowing [facility] to assist you with your healthcare needs. [...] Bilateral w/ Fer 12/12/2021 03:00 PM EDT [facility] Follow Up Appointments Follow Up with [facility], When Within 1-2 days Follow Up with ALANNA WRIGHT DO When Within 1-2 days Why: Please call the office to schedule a follow up appointment Where: [facility] [place] [address]- The Following Activity and Diet Have Been [...] to receive it can visit one of [facility] vaccine clinics. There are many vaccine clinic locations within the [facility]. For locations and available times, please visit https://[email or web address].gov/. It is important to note that some COVID mobile vaccine clinics are held outdoors and may be canceled in rainy or stormy conditions. To learn more about pediatric vaccinations (ages 5-11), we invite you to visit the [facility] webpage. https://www.[facility].org/pages/8970-Stsyw-Rbkhgibnaov-Ainikrtrms-Hksxi-Cxp stions.htmlTo learn more about the COVID-19 vaccine, we invite you to visit the [facility] website for a list of frequently asked questions. https://[email or web address].tv/assets/Dgqpcxfz-tof-Idcpentl/eqxdx-Rwelhgt-Pukbgkefxd _Asked-Questions.pdf [facility] Patient Portal Access Instructions: Stay connected with your healthcare team and access your personal medical information anytime with the [facility] Patient Portal.If you would like a full copy of your medical records, please contact the [facility] Medical Records Department, Wednesday through Wednesday between 8a.m. and 4:30p.m. Please follow the directions below to access the portal: 1.Access the email account you provided upon registration to the [facility].2.Look for an invitation email from [facility].3.Open the email and access the invitation link: Accept Invitation to [facility]4.Fill in the required alejandro to create your account. Sign into www.Greengage Mobile with your username and password that you [...] you will allow to register on the [facility] Patient Portal for access to your information. You can also access the [facility] Patient Portal on the Synaffix. Simply click on Health Records under Make My plate and then click on the [employer] logo. HOW TO SAFELY DISPOSE OF PRESCRIPTION [...] Call your local pharmacy or go to http://SquareOne.DropMat/2E2Xo8y to find one close to you.3.Make use of household items: Use cat litter or old coffee grounds to dispose medications if other options arenot available. Mix your drugs with these household products, seal them in an airtight container andthrow it into the garbage. Call [facility]: [phone] to be sure your drugs can be [...] aware that I should contact my doctor. 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 [id number] Discharge summary Date of Service 12/06/21 Discharge Diagnosis 1. Unsteady gait (R26.81 - ICD-10-CM) 2. Dizziness (R42 - ICD-10-CM) Dizziness ([id number] - PNED) HTN - Hypertension ([id number] - PNED) Additional Orders: Ordered: atenolol 25 mg oral tablet,Dose : 25 mg = 1 tab(s), Oral, qDay, # 30 tab(s), 0 Refill(s), Pharmacy: [facility]/pharmacy #[id number], 160, cm, 12/03/21 21:46:00 EDT, [...] CT head, chest x-ray, MRI brain, TTE, [place]- Hallpike unremarkable.ECG showed LBBB, no prior EKG [...] 100 mg daily, hydralazine 25 mg daily, zkbnhxykgxvvzctihvo73 mg daily, lisinopril 20 mg daily. In [...] to schedule a follow up appointment Where: [facility] [place] [address]- Follow Up Appointments No qualifying data available. Follow Up Labs/Studies Discharge Labs No Follow-up Labs Discharge Studies No Follow-up Studies Discharge Diet No qualifying data available. Discharge Activity No qualifying data available. Readmission Risk/Palliative Score No qualifying data available. Digitally Signed by CODY RILEY MD on 12/06/2021 11:[address] [facility] HospitalSxizyyij09-59-9034 Discharge summary Date of Service 12/06/21 Discharge Diagnosis 1. Unsteady gait (R26.81 - ICD-10-CM) 2. Dizziness (R42 - ICD-10-CM) Dizziness ([id number] - PNED) HTN - Hypertension ([id number] - PNED) Additional Orders: Ordered: atenolol 25 mg oral tablet,Dose : 25 mg = 1 tab(s), Oral, qDay, # 30 tab(s), 0 Refill(s), Pharmacy: [facility]/pharmacy #[id number], 160, cm, 12/03/21 21:46:00 EDT, [...] CT head, chest x-ray, MRI brain, TTE, [place]- Hall[place] unremarkable.ECG showed LBBB, no prior EKG [...] 100 mg daily, hydralazine 25 mg daily, wyvqkvtsauemhrtzvvx92 mg daily, lisinopril 20 mg daily. In [...] to schedule a follow up appointment Where: [address] [place] [address] [place] [address]- Follow Up Appointments No qualifying data available. Follow Up Labs/Studies Discharge Labs No Follow-up Labs Discharge Studies No Follow-up Studies Discharge Diet No qualifying data available. Discharge Activity No qualifying data available. Readmission Risk/Palliative Score No qualifying data available. Digitally Signed by CODY RILEY MD on 12/06/2021 11:[address] [facility] HospitalImpmodnl86-40-5277 Note Chief Complaint Transition plan Transitional Action Points Currently is transition over to [facility] in [place] is able to accept Patient echo explained [...] are recommending SNF. She was excepted by [facility] in [place], will require COVID screen prior to transfer. [...] Rate18(DEC 06 03:45)18(DEC 05 14:26)20(DEC 05 08:09) [id number](DEC 06 03:45)104(DEC 05 14:26)H 160(DEC 05 18:48) DBPL 53(DEC 06 03:45)L 53(DEC 05 18:48)70(DEC 05 23:53) Problem List/ Past Medical History Breast cancer Hypertension Medicare annual wellness visit, subsequent Memory impairment Mixed hyperlipidemia Osteoarthritis Postmenopausal state Right arm pain Vulvar lesion Leukoplakia of vulva Procedure/ Surgical History Lumpectomy of left breast Cardiac Rehab Nurse Tubal ligation Medication List Active Medications Ordered [...] ASHLEY on 12/06/2021 09:[address] [facility] HospitalRgvkclqb21-72-2269 Note ORIGINAL EXAMINATION: TWO XRAY VIEWS OF [...] Sign Date: 12/06/2021 12:06:38 AM Ordering Provider: [facility]10-28-2022 Note Date of Service 12/05/2021 Subjective 81-year-old [...] roomrequired assistance which is not patient's baseline. [place]-Hallpike was performed in ED documented asnegative. Patient was transfer from [place] to [place] for further cardiovascular work-up. Orthostatics performed and [...] Zara no answer, called patient's son Ang [phone] Who states that patient's mental status has [...] MD on 12/05/2021 06:[address] [facility] HospitalQgdankvq87-95-2555 Note ORIGINAL EXAMINATION: TWO XRAY VIEWS OF [...] Date: 12/06/2021 12:06:38 AM Ordering Provider: FRIEDA HOLLANDMer[facility] Health St. [facility] HospitalIkqegygi92-63-1587 Note ORIGINAL EXAMINATION: MR Brain with and [...] pathology. 2. Moderate parenchymal volume loss and ikkx-vp-jufnuqsu chronic microvascular white matter ischemic disease. Interpreted by: Alanna Chin MD Preliminary Report By: Alanna Chin MD Electronically signed By Alanna Chin MD Dictated Date: 12/05/2021 1:36:40 PM Prelim Date: 12/05/2021 1:40:15 PM Sign Date: 12/05/2021 1:40:15 PM Ordering Provider: [facility]10-28-2022 Note ORIGINAL EXAMINATION: MR Brain with and [...] pathology. 2. Moderate parenchymal volume loss and rhce-kz-kpyawogh chronic microvascular white matter ischemic disease. Interpreted by: Alanna Chin MD Preliminary Report By: Alanna Chin MD Electronically signed By Alanna Chin MD Dictated Date: 12/05/2021 1:36:40 PM Prelim Date: 12/05/2021 1:40:15 PM Sign Date: 12/05/2021 1:40:15 PM Ordering Provider: [facility]10-28-2022 Note Date 12/05/2021 Chief complaint Transition [...] Physical therapy notes on 12/04 recommending SNF. social services assistant notes on 12/04 patient remains confused.Left message [...] vulva Procedure/surgical history Lumpectomy of left breast Cardiac Rehab Nurse Tubal ligation Medication List Active Medications Ordered [...] ASHLEY on 12/05/2021 06:[address] [facility] [id number] Note Date of Service 12/04/2021` Chief Complaint [...] ED documented asnegative. Patient was transfer from [place] to [place] for further cardiovascular work-up. Orthostatics performed and negative. On review of telemetry patient with episodes of bradycardia will decre ase atenolol. Patient ordered for MRI TTE and carotid duplex. PT/OT evaluation pending. Patient seen and examined this morning Patient does appear to have advanced dementia She does know that she is in [place] but speaks in a roundabout way about [...] MD on 12/04/2021 03:[address] [facility] HospitalDuvmheqh65-17-1514 Note Chief Complaint Transition Plan. Transitional Action [...] Procedure/ Surgical History Lumpectomy of left breast Cardiac Rehab Nurse Tubal ligation Medication List Active Medications Ordered [...] ASHLEY on 12/04/2021 02:[address] [facility] HospitalJqmbetmy83-64-2893 History and physical note [facility] Medicine Hospitalist History and Physical Date of Admission: 12/03/2021 Chief complaint: Dizziness History of present illness: History is taken from talking with the patient. Patient was accepted asa transfer from [place] emergency department by my colleague. Patient has [...] Postmenopausal state Right arm pain Vulvar lesion Cardiac Rehab Nurse Tubal ligation Family history: Mother: High blood [...] Rate18(DEC 03 21:30)16(DEC 03 14:53)20(DEC 03 14:26) [id number](DEC 03 21:30)136(DEC 03 21:30)H 187(DEC 03 16:20) [...] Appearance (POC): Clear (12/03/21 16:12:00) Urine Specific [place] (POC): <=1.005 Abnormal (12/03/21 16:12:00) Urine Glucose [...] Patient was accepted as a transfer from [facility] emergency department by my colleague on 12/03/2021 [...] MD on 12/03/2021 09:[address] [facility] [id number] Note ORIGINAL EXAMINATION: CT OF THE HEAD [...] 12/03/2021 4:02:30 PM Ordering Provider: BLANCA ARRIETA [facility] HospitalNaikqymu36-94-0152 Note ORIGINAL EXAMINATION: CT OF THE HEAD [...] Sign Date: 12/03/2021 4:02:30 PM Ordering Provider: [facility]10-26-2022 Evaluation + Plan noteExtracted from: Title:Clinical Document Author:ANA WILSON MD Date:12/03/21 [place] [facility] Hospitalist History and Physical Date of Admission: 12/03/2021 Chief complaint: Dizziness History of present illness: History is taken from talking with the patient. Patient was accepted as a transfer from [place] emergency department by my colleague. Patient has [...] Postmenopausal state Right arm pain Vulvar lesion Cardiac Rehab Nurse Tubal ligation Family history: Mother: High blood [...] Rate18(DEC 03 21:30)16(DEC 03 14:53)20(DEC 03 14:26) [id number](DEC 03 21:30)136(DEC 03 21:30)H 187(DEC 03 16:20) [...] Appearance (POC): Clear (12/03/21 16:12:00) Urine Specific [place] (POC): <=1.005 Abnormal (12/03/21 16:12:00) Urine Glucose [...] Patient was accepted as a transfer from [facility] emergency department by my colleague on 12/03/2021 [...] Screening Bilateral w/ Fer 12/12/[address] [facility] Discharge summary Author Jean Claude Harry [facility] Note Date/Time July 24, 2024 3:52 am [facility] Medical Records Department [address] [place] [address] Emergency Department Summary 07/24/24 MR#: [id number] Acct: [id number] Name: CT DALTON Rep #:[id number] : 1940 83 From: Jean Claude Harry [...] mg PO DAILY 04/20/17 04/27/17 08:00 History lhkcehmdknzw-Dv-evii-minerals 1 ea PO DAILY 04/20/17 U nknown [...] range of motion. 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 Neurologically she is awake and alert. [...] Right hip moderate degenerative changes. Reading Location: [place] [address] Right hip and pelvis x-ray, 3 views, [...] obviously lying in bed. Tylenol for pain. Custer as needed for pain also. Print Language: Frisian Disposition Disposition: Home, Self Care What to do if you have Problems For any increased pain, shortness of breath, bleeding, nausea or vomiting, chestpain, or any unexpected problems, contact your Primary Care Provider. Call [facility] ([phone]) or report to the closest Emergency Room. Call 911 if necessary. 07/24/24351 <Electronically signed by Jean Claude Harry MD> Cosigner Signature (if applicable): CC: Dr. Jairon Medel MD ~ Signed [facility] Work Phone: Evaluation + Plan note Future Appointments Appointment Date:05/05/2021 09:00:00 AM Scheduled Provider:ALANNA WRIGHT DO Location:[facility] Appointment Type:PC OV [facility] Evaluation + Plan note Future Appointments Appointment Date:11/06/2021 08:30:00 AM Scheduled Provider:ALANNA WRIGHT DO Location:[facility] Appointment Type:PC Wellness Medicare with Labs Future Scheduled Tests Radiology* XR Humerus Minimum 2 Views Right 05/05/21 [facility] Evaluation + Plan note Future Appointments Appointment Date:01/15/2022 02:00:00 PM Scheduled Provider: Location:RAD Appointment Type:MA Mammogram Screening Bilateral w/ Fer Appointment Date:02/25/2022 10:00:00 AM Scheduled Provider:LARRY THOMAS DO Location:[facility] Appointment Type:PC SUPERINTENDENT LOCAL Appointment Date:03/13/2022 10:30:00 AM Scheduled Provider:ALANNA WRIGHT DO Location:[facility] [place] Appointment Type:PC OV Future Scheduled Tests Radiology* MA Mammo Screening Bilateral w/ Fer 01/15/22 [facility] Evaluation + Plan note Future Appointments Appointment Date:02/25/2022 10:00:00 AM Scheduled Provider:LARRY THOMAS DO Location:[facility] Appointment Type:PC SUPERINTENDENT LOCAL Appointment Date:03/13/2022 10:30:00 AM Scheduled Provider:ALANNA WRIGHT DO Location:[facility] Appointment Type:PC OV Future Scheduled Tests Radiology* US Biopsy Breast Left 1st Lesion 01/22/22 [facility] Evaluation + Plan note Future Appointments Appointment Date:03/05/2022 10:00:00 AM Scheduled Provider:LARRY THOMAS DO Location:[facility] Appointment Type:PC SUPERINTENDENT LOCAL Appointment Date:03/13/2022 10:30:00 AM Scheduled Provider:ALANNA WRIGHT DO Location:[facility] Appointment Type:PC OV Appointment Date:03/23/2022 01:00:00 PM Scheduled Provider: Location:XRAY Appointment Type:US Biopsy Breast Left 1st Lesion Future Scheduled Tests Radiology* US Biopsy Breast Left 1st Lesion 03/23/[address] [facility] evaluation + Plan note Future Appointments [...] 1st Lesion 03/23/22 * US Renal 03/09/22 [facility] Evaluation + Plan note Future Appointments Appointment Date:04/16/2022 04:30:00 PM Scheduled Provider:LARRY THOMAS DO Location:[facility] Appointment Type:PC OV Future Scheduled Tests Laboratory* Hepatic Function Panel 04/13/22 Radiology* US Renal 03/09/[address] [facility] evaluation + Plan note Future Appointments Appointment Date:04/15/2022 07:30:00 AM Scheduled Provider: Location:RAD Appointment Type:US Renal Appointment Date:04/16/2022 04:30:00 PM Scheduled Provider:LARRY THOMAS DO Location:[facility] Appointment Type:PC OV Appointment Date:05/28/2022 10:00:00 AM Scheduled Provider:ANISA GOMEZ MD Location:[facility] Appointment Type:BS SUPERINTENDENT LOCAL Future Scheduled Tests Radiology* US Renal 04/15/22 [facility] Evaluation + Plan note Future Appointments Appointment Date:04/16/2022 04:30:00 PM Scheduled Provider:LARRY THOMAS DO Location:[facility] Appointment Type:PC OV Appointment Date:05/28/2022 10:00:00 AM Scheduled Provider:ANISA GOMEZ MD Location:[facility] Appointment Type:BS SUPERINTENDENT LOCAL [facility] evaluation + Plan note Future Appointments Appointment Date:07/16/2022 03:30:00 PM Scheduled Provider:ANISA GOMEZ MD Location:[facility] Appointment Type:BS OV Post Op Appointment Date:09/11/2022 11:00:00 AM Scheduled Provider:LARRY THOMAS DO Location:[facility] Appointment Type:PC Wellness Medicare [facility] evaluation + Plan note Future Appointments Appointment Date:12/14/2022 10:00:00 AM Scheduled Provider: Location:RAD Appointment Type:BD Bone Density DEXA Axial Skeleton Appointment Date:03/16/2023 10:00:00 AM Scheduled Provider:LARRY THOMAS DO Location:[facility] Appointment Type:PC OV Future Scheduled Tests Radiology* BD Bone Density DEXA Axial Skeleton 12/14/22 [facility] Evaluation + Plan note Future Appointments Appointment Date:06/15/2023 10:30:00 AM Scheduled Provider:LARRY THOMAS DO Location:[facility] Appointment Type:PC OV Diagnostic Tests Pending * Methylmalonic Acid, Serum 04/07/23 [facility] Evaluation + Plan note Future Appointments Appointment Date:06/15/2023 10:30:00 AM Scheduled Provider:LARRY THOMAS DO Location:[facility] Appointment Type:PC OV [facility] Evaluation + Plan note Future Appointments Appointment Date:12/15/2023 10:00:00 AM Scheduled Provider:LARRY THOMAS DO Location:[facility] Appointment Type:PC OV [facility] Evaluation + Plan note Future Appointments Appointment Date:12/29/2023 01:30:00 PM Scheduled Provider:LARRY THOMAS DO Location:[facility] Appointment Type:PC OV Diagnostic Tests Pending * Vitamin B12 Level 12/15/23 * Folate Level 12/15/23 Future Scheduled Tests Laboratory* Calcium Level Ionized 12/15/23 * Urine Culture 12/15/23 Radiology* XR Spine Lumbar W/Obliques 4 Views 12/15/23 [facility] Evaluation + Plan note Future Appointments Appointment Date:12/29/2023 01:30:00 PM Scheduled Provider:LARRY THOMAS DO Location:[facility] Appointment Type:PC OV Future Scheduled Tests Laboratory* Calcium Level Ionized 12/15/23 Radiology* XR Chest 2 Views (PA & Lateral) 12/19/23 * XR Spine Lumbar W/Obliques 4 Views 12/15/23 [facility] Evaluation + Plan note Future Appointments Appointment Date:12/29/2023 01:30:00 PM Scheduled Provider:LARRY THOMAS DO Location:[facility] Appointment Type:PC OV Future Scheduled Tests Laboratory* Calcium Level Ionized 12/15/23 [facility] Evaluation + Plan note Future Appointments Appointment Date:02/16/2024 09:30:00 AM Scheduled Provider:LARRY THOMAS DO Location:[facility] Appointment Type:PC OV Future Scheduled Tests Radiology* US Bladder 12/29/23 [facility] Evaluation + Plan note Future Appointments Appointment Date:02/16/2024 09:30:00 AM Scheduled Provider:LARRY THOMAS DO Location:[facility] Appointment Type:PC OV [facility] Evaluation note* Diagnosis Abnormal ultrasound of breast Other (abnormal) findings on radiological examination of breast History of left breast cancer documented in this encounter [facility] noteNo assessment information availableWCleveland Clinic Hillcrest Hospital Work Phone: Hospital course Narrative No data available for this section [facility] Hospital Discharge instructions No data available for this section [facility] Hospital Discharge instructions Additional Instructions She has a superior pubic ramus fracture which is a pelvis fracture. These are not treated with surgery. They generally heal over weeks to months. She can do activity as tolerated. She may walk or be in a wheelchair or obviously lying in bed. Tylenol for pain. Custer as needed for pain also.[facility] Work Phone: Progress note No data available for this section [facility] Reason for referral (narrative)No reason for referral information availableWCleveland Clinic Hillcrest Hospital Work Phone: Chief Complaint Chief Complaint [...] Visit Chief Complaint Admit Date ADMISSION EXAM SUPERINTENDENT LOCAL February 24, 2024 3 :20pm RESIDENTIAL LAB WORK February 28, 2024 5:00am ADMISSION EXAM February 29, 2024 1 1:54am RESIDENTIAL LAB WORK March 27 5:00am LABWORK April 03, 2024 5:00am NEW CONCERN April 03, 2024 2:22pm LABWORK May 01, 2024 5:0 0am Chief Complaint Admit Date ADMISSION EXAM SUPERINTENDENT LOCAL February 24, 2024 3 :20pm RESIDENTIAL LAB WORK February 28, 2024 5:00am ADMISSION EXAM February 29, 2024 1 1:54am RESIDENTIAL LAB WORK March 27 5:00am LABWORK April 03, 2024 5:00am NEW CONCERN April 03, 2024 2:22pm MONTHLY EXAM April 11, 2024 5:02 pm NEW CONCERN April 26, 2024 6:3 9pm LABWORK May 01, 2024 5:0 0am RESIDENTIAL LAB WORK May 15, 2024 4: 00am Chief Complaint Admit Date ADMISSION EXAM SUPERINTENDENT LOCAL February 24, 2024 3 :20pm RESIDENTIAL LAB WORK February 28, 2024 5:00am ADMISSION EXAM February 29, 2024 1 1:54am RESIDENTIAL LAB WORK March 27 5:00am LABWORK April 03, 2024 5:00am NEW CONCERN April 03, 2024 2:22pm MONTHLY EXAM April 11, 2024 5:02 pm NEW CONCERN April 26, 2024 6:3 9pm LABWORK May 01, 2024 5:0 0am RESIDENTIAL LAB WORK May 15, 2024 4: 00am LABWORK May 29, 2024 5:0 0am Chief Complaint Admit Date ADMISSION EXAM SUPERINTENDENT LOCAL February 24, 2024 3 :20pm RESIDENTIAL LAB WORK February 28, 2024 5:00am ADMISSION EXAM February 29, 2024 1 1:54am RESIDENTIAL LAB WORK March 27 5:00am LABWORK April 03, 2024 5:00am NEW CONCERN April 03, 2024 2:22pm MONTHLY EXAM April 11, 2024 5:02 pm NEW CONCERN April 26, 2024 6:3 9pm LABWORK May 01, 2024 5:0 0am RESIDENTIAL LAB WORK May 15, 2024 4: 00am RESIDENTIAL LAB WORK May 24, 2024 5 :00am LABWORK May 29, 2024 5:0 0am Chief Complaint Admit Date RESIDENTIAL LAB WORK March 27 5:00am LABWORK April 03, 2024 5:00am NEW CONCERN April 03, 2024 2:22pm MONTHLY EXAM April 11, 2024 5:02 pm NEW CONCERN April 26, 2024 6:3 9pm LABWORK May 01, 2024 5:0 0am RESIDENTIAL LAB WORK May 15, 2024 4: 00am RESIDENTIAL LAB WORK May 24, 2024 5 :00am LABWORK May 29, 2024 5:0 0am RESIDENTIAL LAB WORK June 26, 2024 4:0 0am fall July 24, 2024 1:23 am Chief Complaint Admit Date RESIDENTIAL LAB WORK March 27 5:00am LABWORK April 03, 2024 5:00am NEW CONCERN April 03, 2024 2:22pm MONTHLY EXAM April 11, 2024 5:02 pm NEW CONCERN April 26, 2024 6:3 9pm LABWORK May 01, 2024 5:0 0am RESIDENTIAL LAB WORK May 15, 2024 4: 00am RESIDENTIAL LAB WORK May 24, 2024 5 :00am LABWORK May 29, 2024 5:0 0am RESIDENTIAL LAB WORK June 26, 2024 4:0 0am Chief Complaint Admit Date LABWORK April 03, 2024 5:00am NEW CONCERN April 03, 2024 2:22pm MONTHLY EXAM April 11, 2024 5:02 pm NEW CONCERN April 26, 2024 6:3 9pm LABWORK May 01, 2024 5:0 0am Monthly Exam May 12, 2024 2:03 pm RESIDENTIAL LAB WORK May 15, 2024 4: 00am RESIDENTIAL LAB WORK May 24, 2024 5 :00am LABWORK May 29, 2024 5:0 0am RESIDENTIAL LAB WORK June 26, 2024 4:0 0am fall July 24, 2024 1:23 am Chief Complaint Admit Date LABWORK April 03, 2024 5:00am NEW CONCERN April 03, 2024 2:22pm MONTHLY EXAM April 11, 2024 5:02 pm NEW CONCERN April 26, 2024 6:3 9pm LABWORK May 01, 2024 5:0 0am Monthly Exam May 12, 2024 2:03 pm RESIDENTIAL LAB WORK May 15, 2024 4: 00am New Concern May 23, 2024 5:0 2pm RESIDENTIAL LAB WORK May 24, 2024 5 :00am LABWORK May 29, 2024 5:0 0am RESIDENTIAL LAB WORK June 26, 2024 4:0 0am fall July 24, 2024 1:23 am Chief Complaint Admit Date NEW CONCERN April 26, 2024 6:3 9pm LABWORK May 01, 2024 5:0 0am Monthly Exam May 12, 2024 2:03 pm RESIDENTIAL LAB WORK May 15, 2024 4: 00am New Concern May 23, 2024 5:0 2pm RESIDENTIAL LAB WORK May 24, 2024 5 :00am LABWORK May 29, 2024 5:0 0am RESIDENTIAL LAB WORK June 26, 2024 4:0 0am MONTHLY EXAM June 27, 2024 4:00p m fall July 24, 2024 1:23 am Chief Complaint Admit Date LABWORK May 01, 2024 5:0 0am Monthly Exam May 12, 2024 2:03 pm RESIDENTIAL LAB WORK May 15, 2024 4: 00am New Concern May 23, 2024 5:0 2pm RESIDENTIAL LAB WORK May 24, 2024 5 :00am LABWORK May 29, 2024 5:0 0am RESIDENTIAL LAB WORK June 26, 2024 4:0 0am MONTHLY EXAM June 27, 2024 4:00p m fall July 24, 2024 1:23 am NEW CONCERN July 24, 2024 2:45 pm LABWORK August 21, 2024 5:00 am Chief Complaint Admit Date RESIDENTIAL LAB WORK May 24, 2024 5 :00am LABWORK May 29, 2024 5:0 0am RESIDENTIAL LAB WORK June 26, 2024 4:0 0am MONTHLY EXAM June 27, 2024 4:00p m fall July 24, 2024 1:23 am NEW CONCERN July 24, 2024 2:45 pm Monthly Exam August 08, 2024 8:00p m LABWORK August 21, 2024 5:00 am LABWORK August 28, 2024 5:00 am Additional Source Comments Reason for Visit (unrecogniz ed section and content) Reason For Visit Description Follow-up by complaint Preliminary reason f or visit data, not yet signed by the author as of lower back pain Reason Comments Consult Left breast consult Reason Comments Request for medical records INFORMATION SOURCE (unrecogn ized section and content) DATE CREATED AUTHOR 03/11/2018 [facility] DATE CREATED AUTHOR AUTHOR'S ORGANIZ ATION 06/04/2022 [facility] DATE CREATED AUTHOR AUTHOR'S ORGANIZ ATION 07/09/2023 [facility] ([place]) DATE CREATED AUTHOR AUTHOR'S ORGANIZ ATION 02/24/2024 [facility] DATE CREATED AUTHOR AUTHOR'S ORGANIZ ATION 03/28/2024 [facility] DATE CREATED AUTHOR AUTHOR'S ORGANIZ ATION 10/04/2024 [facility] Care Team (unrecognized sect ion and content) Care Team Personnel Name: ALANNA WRIGHT DO Position: P4 Physician - Primary Care Member Role: Primary Care Physician Address: Address: [address] [place] [address] [place] Name: Vnekata Alegria RN Position: ED RN Member Role: ED RN Name: BLANCA ARRIETA DO Position: P4 ED Physician II Member Role: ED Physician Address: Address: [address] [facility] [facility] [place] [address]- [place] Care Team Related Persons Name: ZARA DALTON Address: Home [address] [place], [place] [id number] [place] Care Team Personnel Name: ALANNA WRIGHT DO Position: P4 Physician - Primary Care Member Role: Primary Care Physician Address: Address: [address] [place] [address]- Name: Danette Busch RN Position: RN Member Role: RN Name: INES DENNIS MD Position: ED Physician Member Role: Attending Physician Address: Address: [facility] [address] [place] [id number] [place] Care Team Related Persons Name: ZARA DALTON Address: Home [address] [place], [place] [id number] [place] Care Team Personnel Name: ALANNA WRIGHT DO Position: P4 Physician - Primary Care Member Role: Primary Care Physician Address: Address: [address] [place] [address]- [place] Care Team Related Persons Name: ZARA DALTON Address: Home [address] [place], [place] [id number] [place] Care Team Personnel Name: LARRY THOMAS DO Position: P4 Physician - Primary Care Member Role: Primary Care Physician Address: Address: [address] [place] [address]- [place] Care Team Related Persons Name: ZARA DALTON Address: Home [address] [place], [place] [id number] [place] Care Team Personnel Name: LARRY THOMAS DO Position: P4 Physician - Primary Care Member Role: Primary Care Physician Address: Address: [address] [place] [id number] [place] Care Team Related Persons Name: ZARA DALTON Address: Home [address], [place] [phone] [place] Care Team Personnel Name: LARRY THOMAS DO Position: P4 Physician - Primary Care Member Role: Primary Care Physician Address: Address: [address] [place] [id number] [place] [address] Care Team Related Persons Name: ZARA DALTON Address: [address] [place], [place] [id number] Care Team Personnel Name: LARRY THOMAS DO Position: P4 Physician - Primary Care Member Role: Primary Care Physician Address: Address: [address] [place] [address] Care Team Related Persons Name: ZARA DALTON Address: [address] [phone] Care Team Personnel Name: LARRY THOMAS DO Position: P4 Physician - Primary Care Member Role: Primary Care Physician Address: Address: [address] [place] [address] Care Team Related Persons Name: ZARA DALTON Address: [place] [address] [place] [id number] Source Comments (unrecognize d section and content) In the event this informatio n is protected by the Federal Confidentiality of Alcohol and Drug Abuse Patient Records regulations: The Federal rules restrict any use of the information to criminally investigate or prosecute any alcohol or drug abuse patient.[facility] the event this information is protected by the Federal Confidentiality of Alcohol and Drug Abuse Patient Records regulations: The Federal rules restrict any use of the information to criminally investigate or prosecute any alcohol or drug abuse patient.[facility] Care Teams (unrecognized sec tion and [...] End: April 03, 2024 Jane Barth NP SUPERINTENDENT LOCAL-C Attending Provider Active Start: April 03, 2024 [...] 2024 End: April 26, 2024 Jane Barth NP SUPERINTENDENT LOCAL-C Attending Provider Active Start: April 26, 2024 [...] July 24, 2024 End: July 24, 2024 [employer] Fin[employer] Relationship Specialty Start Date End Date Kelvin Larry [address] [address] PCP - General Family Medicine 03/30/22 Lachelle Cervantes MD, [facility] [place] [address] [place] [address] Physician Radiation Oncology 05/11/17 Kesha Davidson RN Specialty White Washer Oncology 07/28/17 [employer] Relationship Specialty Start Date End Date Larry Thomas DO [address] [place] [id number] PCP - General Family Medicine 03/30/22 Lachelle Cervantes MD, [place] [address] [place] [address] Physician Radiation Oncology 05/11/17 Kesha Davidson RN Specialty White Washer Oncology 07/28/17 Team Status: Active Member Role Status Dates Dr. Warner Leos Jr., MD Family Provider Active Dr. Warner Leos Jr., MD Primary Care Provider Active Team Status: Inactive Member Role Status Dates Dr. Warner Leos Jr., MD Primary Care Provider Active Start: February 24, 2024 End: February 24, 2024 Jane Barth SUPERINTENDENT LOCAL SUPERINTENDENT LOCAL-C Attending Provider Active Start: February 24, 2024 [...] End: May 12, 2024 Jane Barth NP SUPERINTENDENT LOCAL-C Attending Provider Active Start: May 12, 2024 End: May 12, 2024 Team Status: Inactive Member Role Status Dates Dr. Jairon Medel MD Primary Care Provider Active Start: May 23, 2024 End: May 23, 2024 Jane Barth SUPERINTENDENT LOCAL, SUPERINTENDENT LOCAL-C Attending Provider Active Start: May 23, 2024 End: May 23, 2024 Team Status: Active Member Role/Relationship Status Dates Dr. Jairon Medel MD Primary Care Provider Active Team Status: Inactive Member Role/Relationship Status Dates Dr. Warner Leos Jr., MD Primary Care Provider Active Start: April 26, 2024 End: April 26, 2024 Jane Barth SUPERINTENDENT LOCAL, SUPERINTENDENT LOCAL-C Attending Provider Active Start: April 26, 2024 [...] 2024 End: May 12, 2024 Jane Barth SUPERINTENDENT LOCAL, SUPERINTENDENT LOCAL-C Attending Provider Active Start: May 12, 2024 [...] 2024 End: May 23, 2024 Jane Barth SUPERINTENDENT LOCAL, SUPERINTENDENT LOCAL-C Attending Provider Active Start: May 23, 2024 [...] 2024 End: May 12, 2024 Jane Barth NP, SUPERINTENDENT LOCAL-C Attending Provider Active Start: May 12, 2024 [...] 2024 End: May 23, 2024 Jane Barth SUPERINTENDENT LOCAL, SUPERINTENDENT LOCAL-C Attending Provider Active Start: May 23, 2024 [...] 2024 End: July 24, 2024 Jane Barth SUPERINTENDENT LOCAL, SUPERINTENDENT LOCAL-C Attending Provider Active Start: July 24, 2024 End: July 24, 2024 Team Status: Inactive Member Role/Relationship Status Dates Dr. Warner eLos Jr., MD Primary Care Provider Active Start: [...] 2024 End: July 24, 2024 Jane Barth NP, SUPERINTENDENT LOCAL-C Attending Provider Active Start: July 24, 2024 End: July 24, 2024 Team Status: Inactive Member Role/Relationship Status Dates Dr. Jairon Medel MD Primary Care Provider Active Start: August 08, 2024 Dr. Julia Estrella MD Attending Provider Active Start: August 08, 2024 Team Status: Inactive Member Role/Relationship Status Dates Dr. Jairon Medel MD Primary Care Provider Active Start: August 08, 2024 End: August 08, 2024 Dr. Jairon Medel MD Attending Provider Active Start: August 08, 2024 End: August 08, 2024 Team Status: Active Member Role/Relationship Status Dates Dr. Jairon Medel MD Primary Care Provider Active Start: August 21, 2024 Jairon TREVIÑO MD Attending Provider Active Start: August 21, 2024 Team Status: Active Member Role/Relationship Status Dates Dr. Jairon Medel MD Primary Care Provider Active Start: August 28, 2024 Jairon TREVIÑO MD Attending Provider Active Start: August 28, 2024 Team Status: Active Member Role/Relationship Status Dates Dr. Jairon Medel MD Primary Care Provider Active Start: September 18, 2024 Jairon TREVIÑO MD Attending Provider Active Start: September 18, 2024 Goals (unrecognized section and content) Goals [...] BE BASED ON THE PRIMARY CLINICAL RECORDS. [facility] [employer] provides no warranty or guarantee of the accuracy or completeness of information in this document.
--- OUTSIDE RECORDS SUMMARY | 2024-10-16 04:38 | XMS RPT_ITS | CCD ---
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 Hylton Primary Care Provider Lary CYLINDER TESTER-C, Jane Attending Provider Jairon Medel MD Attending Provider Unavailsteffany Medel MD, Dr. De La O Attending Provider Jairon Medel MD Referring Provider Unavailsteffany Leos MD, Dr. Hylton Primary Care Provider Jairon Medel MD Attending Provider Unavailsteffany Barth CYLINDER TESTER-C, Jane Attending Provider Gianfranco PARKER, Dr. De La O Attending Provider Dr. Jairon Medel MD Primary Care Provider Dr. Jean Claude Harry MD Emergency Provider Deric PARKER, Dr. Hylton Primary Care Provider Jairon Medel MD Attending Provider Unavailsteffany Medel MD, Dr. De La O Primary Care Provider Dr. Warner Leos MD Primary Care Provider Lary CYLINDER TESTER-C, Jane Attending Provider Jairon Medel MD Attending Provider Unavailsteffany Medel MD, Dr. De La O Attending Provider Piero PARKER, Dr. Silverio Attending Provider Deric PARKER, Dr. Hylton Primary Care Provider Lary CYLINDER TESTER-CJane Attending Provider Deric PARKER, Dr. Hylton Primary Care Provider Gianfranco PARKER, Jairon Attending Provider Unavailsteffany Medel MD, Jairon Referring Provider Unavailsteffany Medel MD, Dr. De La O Primary Care Provider Lary CYLINDER TESTER-CJane Attending Provider Sameer PARKER, Dr. Dumont Attending [...] (1 source) Sulfacetamide Drug Allergy 4 rash [facility] Work Phone: (10 sources) Sulfonamides (Antibiotic); Translations: [SULFA (SULFONAMIDE ANTIBIOTICS)] Propensity to adverse reactions to drug (disorder) 8 Intolerance [facility] Other [place] [facility] Medications Current Medications Medication Drug Class(es) [...] taking., # 12 tab(s), 1 Refill(s), Pharmacy: [facility]/pharmacy #[id number], 155, cm, 12/15/23 10:32:00 EST, Height, [...] taking., # 12 tab(s), 1 Refill(s), [id number]5, cm, 06/15/23 10:26:00 EDT, Height, kg, 06/15/23 10:26:00 EDT, Dosing Weight Start Date: 06/15/23 Stop Date: 11/30/23 Status: Ordered anastrozole 1 mg oral tablet (20 sources) Aromatase Inhibitor Start: 09-28-2023 take 1 tablet by mouth once daily in the evening anastrozole 1 mg oral tablet 1 tab(s), Oral, qPM, # 90 tab(s), 0 Refill(s), Pharmacy: [facility]/pharmacy #[id number], 153.5, cm, 06/15/23 10:26:00 EDT, Height, kg, 06/15/23 10:26:00 EDT, Dosing Weight Start Date: 09/28/23 Status: Ordered Start: 03-16-2023 take 1 tablet by charles th once daily in the evening anastrozole 1 mg oral tablet 1 tab(s), Oral, qPM, # 90 tab(s), 1 Refill(s), Pharmacy: [facility]/pharmacy #[id number], 155.2, cm, 03/16/23 9:59:00 EST, Height, kg, 03/16/23 9:59:00 EST, Dosing Weight Start Date: 03/16/23 Status: Ordered Start: 09-30-2022 take 1 tablet by charles th once daily in the evening anastrozole 1 mg oral tablet 1 tab(s), Oral, qPM, # 90 tab(s), 1 Refill(s), Pharmacy: [facility]/pharmacy #[id number], 156.5, cm, 09/11/22 11:11:00 EDT, Height, kg, 09/11/22 11:11:00 EDT, Dosing Weight Start Date: 09/30/22 Status: Ordered Start: 11-21-2021 take 1 tablet by charles th once daily in the evening anastrozole 1 mg oral tablet 1 tab(s), Oral, qPM, # 90 tab(s), 1 Refill(s), Pharmacy: [facility] STORE [id number], 154.5, cm, 11/18/21 13:32:00 EDT, Height, kg, 11/18/21 13:32:00 EDT, Dosing Weight Start Date: 11/21/21 Status: Ordered Start: 03-20-2020 End: 04-05-2021 take 1 tablet by mouth once daily anastrozole 1 mg oral tablet 1 tab(s), Oral, qDay, # 90 tab(s), 1 Refill(s), Pharmacy: [facility] STORE [id number], 155, cm, 11/04/20 8:28:00 EDT, Height, kg, 11/11/20 8:26:00 EDT, Dosing Weight Start Date: 04/17/21 Status: Ordered Start: 01-12-2018 ARIMIDEX 1 MG TABS 1 tablet daily ANASTROZOLE [id number] Vidya Babin LPN Comment on above: TAKE 1 TABLET BY CHARLES TH EVERY DAY aspirin 81 mg delayed release oral tablet (20 sources) Platelet Aggregation Inhibitor, Nonsteroidal Anti-inflammatory Drug Start: 10-05-2023 End: 04-02-2024 aspirin 81 mg oral delayed release tablet Dose : 81 mg = 1 tab(s), Oral, qAM, do not crush or chew, # 90 tab(s), 1 Refill(s), Pharmacy: [facility]/pharmacy #[id number], 153.5, cm, 06/15/23 10:26:00 EDT, Height, kg, 06/15/23 10:26:00 EDT, Dosing Weight Start Date: 10/05/23 Stop Date: 04/02/24 Status: Ordered Start: 03-05-2022 End: 05-20-2023 aspirin 81 mg oral delayed r elease tablet Dose : 81 mg = 1 tab(s), Oral, qAM, do not crush or chew, # 90 tab(s), 3 Refill(s), Pharmacy: [facility]/pharmacy #[id number], 154.3, cm, 04/16/22 16:12:00 EST, Height, [...] 100 tab(s), 1 Refill(s), Pharmacy: [facility]/pharmacy #[id number], 155, cm, 12/15/23 10:32:00 EST, Height, kg, 12/15/23 10:26:00 EST, Dosing Weight Start Date: 12/15/23 Stop Date: 07/02/24 Status: Ordered Quantity: 100.0 Unit: tab(s) Repeat number: 2 Start: 09-13-2023 End: 12-12-2023 atorvastatin 20 mg oral tabl et Dose : 20 mg = 1 tab(s), Oral, qPM, # 90 tab(s), 0 Refill(s), Pharmacy: [facility]/pharmacy #[id number], 153.5, cm, 06/15/23 10:26:00 EDT, Height, kg, 06/15/23 10:26:00 EDT, Dosing Weight Start Date: 09/13/23 Stop Date: 12/12/23 Status: Ordered Start: 01-29-2023 End: 07-28-2023 atorvastatin 20 mg oral tabl et Dose : 20 mg = 1 tab(s), Oral, qPM, # 90 tab(s), 1 Refill(s), Pharmacy: [facility]/pharmacy #[id number], 156.5, cm, 09/11/22 11:11:00 EDT, Height, kg, 09/11/22 11:11:00 EDT, Dosing Weight Start Date: 01/29/23 Stop Date: 07/28/23 Status: Ordered Start: 03-09-2022 End: 11-21-2022 atorvastatin 20 mg oral tabl et Dose : 20 mg = 1 tab(s), Oral, qPM, # 90 tab(s), 1 Refill(s), [id number] 154.3, cm, 04/16/22 16:12:00 EST, Height, kg, 04/16/22 16:12:00 EST, Dosing Weight Start Date: 05/25/22 Stop Date: 11/21/22 Status: Ordered Start: 08-22-2021 take 0.5 tablet by m outh once daily atorvastatin 20 mg oral tablet 0.5 tab(s), Oral, qDay, # 45 tab(s), 1 Refill(s), Pharmacy: [facility] STORE [id number], 155, cm, 05/05/21 8:51:00 EDT, Height, kg, 05/05/21 8:51:00 EDT, Dosing Weight Start Date: 08/22/21 Status: Ordered Start: 11-06-2020 take 0.5 tablet by m outh once daily atorvastatin 20 mg oral tablet See Instructions, TAKE 1/2 TABLET EVERY DAY, # 45 tab(s), 1 Refill(s), [id number], cm, 11/04/20 8:28:00 EDT, Height, kg, 11/04/20 8:28:00 EDT, Dosing Weight Start Date: 11/06/20 Status: Ordered Start: 04-20-2017 take 2 tablets by mo [facility] at bedtime Atorvastatin 10 MG tablet Active 20 mg PO AT BEDTIME April 20, 2017 12:00am Start: 10-27-2013 [facility] Atorvastatin 10 MG tablet [...] qAM, # 90 cap(s), 0 Refill(s), [id number], 156.2, cm, 07/01/22 6:28:00 EDT, Height, kg, 07/01/22 6:28:00 EDT, Dosing Weight Start Date: 08/10/22 Status: Ordered Start: 12-07-2016 take 1 capsule by [facility] once daily in the morning celecoxib 100 mg oral capsule 1 cap(s), Oral, qAM, # 90 cap(s), 1 Refill(s), [facility]acy: [id number], 154.3, cm, 04/16/22 16:12:00 EST, Height, kg, 04/16/22 16:12:00 EST, Dosing Weight Start Date: 05/21/22 Status: Ordered Start: 10-27-2013 CELEBREX 100 M G CAPS 1-2 capsules weekly as needed CELECOXIB [id number] Vidya Babin LPN Comment on above: Take 100 mg by mouth once daily. ciclopirox 80 mg/ml topical solution (6 sources) Start: 03-05-2022 End: 01-06-2024 ciclopirox 8% topical solution Apply 1 angelica, Topical, Daily, apply to affected toenails and surrounding area once daily, remove with alcohol every 7 days prior to reapplication, Apply to: toenails, X 48 week(s), # 6.6 mL, 1 Refill(s), [id number], 154.3, cm, 03/05/22 9:44:00 EST, Height, 75.6 Start Date: 03/05/22 Stop Date: 01/06/24 Status: Ordered Clobetasol (3 sources) Corticosteroid Start: 01-20-2021 clobetasol 0.05% topical ointment See Instructions, APPLY TO AFFECTED AREA TWICE A DAY, # 15 gram(s), 1 Refill(s), Pharmacy: [facility] STORE [id number], 155, cm, 11/04/20 8:28:00 EDT, Height, 81.2, kg, 11/11/20 8:26:00 EDT, Dosing Weight Start Date: 01/20/21 Status: Ordered Start: 07-30-2020 Temovate 0.05% topical ointment Apply 1 angelica, Topical, BID, # 15 gram(s), 0 Refill(s), [id number]ment, 155, cm, 07/23/20 8:15:00 EDT, [...] qHS, # 90 tab(s), 1 Refill(s), [id number] 156.5, cm, 09/11/22 11:11:00 EDT, Height, [...] 90 tab(s), 1 Refill(s), Pharmacy: [id number], 155, cm, 11/04/20 8:28:00 EDT, Height, kg, [...] discomfort, # 39 tab(s), 0 Refill(s), [id number], cm, 12/15/23 10:32:00 EST, Height, [...] TID, # 5 gram(s), 0 Refill(s), Pharmacy: [facility]/pharmacy #[id number], Cream, 155, cm, 07/23/20 8:15:00 EDT, Height, 85.2, kg, 07/23/20 8:15:00 EDT, Dosing Weight Start Date: 07/23/20 Status: Ordered lisinopril 20 mg oral tablet (14 sources) Angiotensin Converting Enzyme Inhibitor Start: 03-16-2023 take 1 tablet by mouth once daily in the morning lisinopril 20 mg oral tablet 1 tab(s), Oral, qAM, # 90 tab(s), 1 Refill(s), [id number] 155.2, cm, 03/16/23 9:59:00 EST, Height, kg, 03/16/23 9:59:00 EST, Dosing Weight Start Date: 03/16/23 Status: Ordered Start: 10-15-2022 take 1 tablet by charles th once daily in the morning lisinopril 20 mg oral tablet 1 tab(s), Oral, qAM, # 90 tab(s), 1 Refill(s), [id number] 156.5, cm, 09/11/22 11:11:00 EDT, Height, kg, 09/11/22 11:11:00 EDT, Dosing Weight Start Date: 10/15/22 Status: Ordered Start: 04-13-2022 take 1 tablet by charles th once daily in the morning lisinopril 20 mg oral tablet 1 tab(s), Oral, qAM, # 90 tab(s), 1 Refill(s), [id number] 154.3, cm, 03/17/22 9:37:00 EST, Height, kg, 03/17/22 9:37:00 EST, Dosing Weight Start Date: 04/13/22 Status: Ordered Start: 09-02-2021 take 1 tablet by charles th once daily lisinopril 20 mg oral tablet 1 tab(s), Oral, qDay, # 90 tab(s), 1 Refill(s), Pharmacy: [id number], 155, cm, 05/05/21 8:51:00 EDT, Height, kg, 05/05/21 8:51:00 EDT, Dosing Weight Start Date: 09/02/21 Status: Ordered Start: 10-22-2020 take 1 tablet by charles th once daily lisinopril 20 mg oral tablet See Instructions, TAKE 1 TABLET BY MOUTH EVERY DAY, # 90 tab(s), 1 Refill(s), Pharmacy: [facility] STORE [id number], 155, cm, 07/23/20 8:15:00 EDT, Height, kg, [...] mg extended release oral capsule (20 sources) J-dqqaab-M-asparta te Receptor Antagonist Start: 07-24-2024 take 1 [...] # 90 tab(s), 1 Refill(s), [id number] 156.5, cm, 09/11/22 11:11:00 EDT, Height, kg, 09/11/22 11:11:00 EDT, Dosing Weight Start Date: 01/29/23 Status: Ordered Start: 05-25-2022 take 1 tablet by charles th once daily in the morning memantine 5 mg oral tablet 1 tab(s), Oral, qAM, # 90 tab(s), 1 Refill(s), Pharmacy: [facility]/pharmacy #[id number], 154.3, cm, 04/16/22 16:12:00 EST, Height, kg, 04/16/22 16:12:00 EST, Dosing Weight Start Date: 05/25/22 Status: Ordered Start: 07-14-2021 take 1 tablet by charles th once daily memantine 5 mg oral tablet 1 tab(s), Oral, qDay, # 90 tab(s), 1 Refill(s), Pharmacy: [facility], 155, cm, 05/05/21 8:51:00 EDT, Height, kg, 05/05/21 8:51:00 EDT, Dosing Weight Start Date: 07/14/21 Status: Ordered Start: 04-15-2021 take 1 tablet by charles once daily memantine 5 mg oral tablet 1 tab(s), Oral, qDay, # 90 tab(s), 0 Refill(s), Pharmacy: [facility] 00858, 155, cm, 11/04/20 8:28:00 EDT, Height, kg, 11/11/20 8:26:00 EDT, Dosing Weight Start Date: 04/15/21 Status: Ordered Start: 10-17-2020 take 1 tablet by charles once daily memantine 5 mg oral tablet See Instructions, TAKE 1 TABLET BY MOUTH EVERY DAY, # 90 tab(s), 0 Refill(s), Pharmacy: [facility] [id number], 155, cm, 07/23/20 8:15:00 EDT, Height, kg, [...] 0 Refill(s) Start Date: 03/17/22 Status: Ordered Abdpxksqbyxz-Nm-Ybgp-Mineral s (Multiple Vitamins For Women) 1 EACH tablet (11 sources) Start: 04-20-2017 take 1 tablet by mouth once daily Kfdwijkskazu-Gi-Ncam-Minerals (Multiple Vitamins For Women) 1 EACH tablet Active 1 NMA PO DAILY April 20, 2017 12:00am mupirocin 0.02 mg/mg topical ointment (2 sources) RNA Synthet ase Inhibit or Antibac terial Start: 06-19-2022 mupirocin 2% topical ointmen t Apply 1 angelica, Topical, BID, Bilateral intranasal application twice daily x 5 days pre-surgery., Apply to: nostril, each, # 22 gram(s), 0 Refill(s), Pharmacy: [facility]/pharmacy #[id number], Ointment, 154.3, cm, 05/28/22 7:35:00 EDT, Height, 77 Start Date: 06/19/22 Status: Ordered nystatin 132326 unt/ml topic al cream (7 sources) Polyene Antifun gal Start: 07-24-2024 Nystatin 100,000 unit/gram cream Active 1 NMA TOPICAL TWICE DAILY NEEDED as needed for groin July 24, 2024 12:00am Start: 09-11-2022 End: 11-10-2022 nystatin 100,000 units/g top ical cream Apply 1 angelica, Topical, BID, PRN Rash, Apply to the affected area twice daily until healing complete., # 30 gram(s), 1 Refill(s), Pharmacy: [facility]/pharmacy #[id number], Cream, 156.5, cm, 09/11/22 11:11:00 EDT, [...] Date: 01/24/24 Status: Ordered polyethylene glycol 3350 01185 mg powder for oral solution (7 sources) [...] day(s), # 6 tab(s), 0 Refill(s), Pharmacy: [facility]/pharmacy #[id number], 155, cm, 12/15/23 10:32:00 EST, Height, [...] Start: 02-26-2017 take 2 tablets by mo [facility] once daily atenolol (TENORMIN) 50 mg tablet [...] TABS 1 tablet daily CALCIUM CARB-CHOLECALCIFEROL TABS [id number] Vidya Babin MOLD SETTER calcium carbonate 1500 mg oral tablet (12 sources) Start: 023 End: 024 calcium (as carbonate) 600 mg oral tablet Dose : 600 mg = 1 tab(s), Oral, qDay, # 90 tab(s), 3 Refill(s), Pharmacy: [facility]/pharmacy #[id number], 156.5, cm, 09/11/22 11:11:00 EDT, Height, [...] on above: Take 3 tablets by mo [facility] once daily. cyclobenzaprine hydrochloride 10 mg oral [...] qAM, # 90 tab(s), 1 Refill(s), Pharmacy: [facility] 76645, 154.5, cm, 11/18/21 13:32:00 EDT, Height, kg, [...] MULTIVITAMINS CAPS 1 capsule daily MULTIPLE VITAMIN [id number] Jane Troy multivitamin tablet (2 sources) take [...] Auto (Unsp spec) [#/Vol] 1.93 10*3/uL 0.83-4.51 [facility] Absolute neutrophil countOrd ered By: Jairon Medel on 09-18-2024 Neutrophils (Bld) [#/Vol] 3.1 10*3/uL 2.0-7.7 [facility] Anion gap in Serum or Plasma Ordered By: Jairon Medel on 09-18-2024 Anion gap [Moles/Vol] 11 mmol/L 5-15 [facility] Automated lymphocyte count a s percentage of total leukocytesOrdered By: Jairon Medel on 09-18-2024 Lymphocytes/100 WBC Auto (Unsp spec) 34.0 % 19-41 [facility] BUN/creatinine ratioOrdered By: Jairon Medel on 09-18-2024 Urea nitrogen/Creatinine [Mass ratio] 23.1 mg/mg High 10-20 [facility] Basophil percentageOrdered B y: Jairon Medel on 09-18-2024 Basophils/100 WBC (Bld) 0.7 % 0-1 [facility] Carbon dioxide, total [Moles /volume] in Central venous bloodOrdered By: Jairon Medel on 09-18-2024 CO2 [Moles/Vol] 23.8 mmol/L 21.0-32.0 [facility] Chloride assayOrdered By: Pooja Medel on 09-18-2024 Chloride [Moles/Vol] 106 mmol/L 98-108 [facility] Eosinophil percentageOrdered By: Jairon Medel on 09-18-2024 Eosinophils/100 WBC (Bld) 2.1 % 0-5 [facility] Erythrocyte distribution wid th ratioOrdered By: Jairon Medel on 09-18-2024 Erythrocyte distribution width (RBC) [Ratio] 13.6 % 11.6-14.6 [facility] Erythrocyte distribution wid th standard deviationOrdered By: Jairon Medel on 09-18-2024 Erythrocyte distribution width (RBC) [Ratio] 45.4 fl High 35.1-43.9 [facility] Glomerular filtration rate ( GFR) estimation/1.73 sq m using serum, plasma, or whole bOrdered By: Carrillopleasant hopemakenzie Medel on 09-18-2024 GFR/1.73 sq M.predicted among non-blacks MDRD (S/P/Bld) [Vol rate/Area] 59 mL/min/{1.73_m2} Low >60 [facility] Comment on above: mL/min/1.73m2 CKD-EP I Creatinine Equation (2020) Hematocrit Auto (Bld) [Volum e fraction]Ordered By: Jairon Medel on 09-18-2024 Hematocrit (Bld) [Volume fraction] 31.9 % Low 37-47 [facility] Hemoglobin measurementOrdere d By: Jairon Medle on 09-18-2024 Hemoglobin (Bld) [Mass/Vol] 9.9 g/dL Low 12.0-15.0 [facility] Immature granulocytes/100 WB C Auto (Bld)Ordered By: Jairon Medel on 09-18-2024 Immature granulocytes/100 WBC (Bld) 0.400 % 0.0-0.9 [facility] Comment on above: IG% - Immature Granu locytes (promyelocytes, myelocytes and metamyelocytes) > 1% indicates that a LEFT SHIFT is Present. MCV (mean corpuscular volume ) determinationOrdered By: Jairon Medel on 09-18-2024 MCV (RBC) [Entitic vol] 91.7 fL 81-99 [facility] Mean corpuscular hemoglobin (MCH) determinationOrdered By: Jairon Medel on 09-18-2024 MCH (RBC) [Entitic mass] 28.4 pg 27.0-32.0 [facility] Mean corpuscular hemoglobin concentration (MCHC) determinationOrdered By: Jairon Medel on 09-18-2024 MCHC (RBC) [Mass/Vol] 31.0 g/dL Low 32-36 [facility] Mean platelet volume determi nationOrdered By: Jairon Medel on 09-18-2024 Platelet mean volume (Bld) [Entitic vol] 10.9 fL 6.2-12.0 [facility] Monocyte percentageOrdered B y: Jairon Medel on 09-18-2024 Monocytes/100 WBC (Bld) 7.9 % 0-10 [facility] Neutrophil percentageOrdered By: Jairon Medel on 09-18-2024 Neutrophils/100 WBC (Bld) 54.9 % 47-70 [facility] Nucleated red blood cell per centageOrdered By: Jairon Medel on 09-18-2024 Nucleated RBC/100 WBC (Bld) [Ratio] 0 % 0-5 [facility] Platelet countOrdered By: Pooja sreekanthbraden Medel on 09-18-2024 Platelets (Bld) [#/Vol] 247 10*3/uL 150-450 [facility] Potassium measurement (mass/ volume)Ordered By: Jairon Medel on 09-18-2024 Potassium (Unsp spec) [Mass/Vol] 4.1 mmol/L 3.3-5.1 [facility] RBC Auto (Bld) [#/Vol]Ordere d By: Jairon Medel on 09-18-2024 RBC (Bld) [#/Vol] 3.48 10*6/uL Low 4.2-5.4 [facility] Serum creatinine measurement (mass/volume)Ordered By: Jairon Medel on 09-18-2024 Creatinine [Mass/Vol] 0.94 mg/dL 0.70-1.20 [facility] Serum glucose measurement (m ass/volume)Ordered By: Jairon Medel on 09-18-2024 Glucose [Mass/Vol] 86 mg/dL 70-99 [facility] Serum or plasma calcium krissy urement (mass/volume)Ordered By: Jairon Medel on 09-18-2024 Calcium [Mass/Vol] 9.9 mg/dL 7.6-11.0 [facility] Serum or plasma urea nitroge n measurement (mass/volume)Ordered By: Jairon Medel on 09-18-2024 Urea nitrogen [Mass/Vol] 22 mg/dL High 4-19 [facility] Sodium levelOrdered By: Carrillo Medel on 09-18-2024 Sodium [Moles/Vol] 141 mmol/L 133-145 [facility] White blood cell (WBC) count Ordered By: Jairon Medel on 09-18-2024 WBC (Bld) [#/Vol] 5.7 10*3/uL 4.4-11.0 [facility] Bilirubin directOrdered By: Jairon Medel on 08-28-2024 Bilirubin.direct [Mass/Vol] 0.12 mg/dL 0.00-0.30 [facility] Bilirubin, totalOrdered By: Jairon Medel on 08-28-2024 Bilirubin [Mass/Vol] 0.23 mg/dL 0.00-1.30 [facility] Calculated very low density lipoprotein (VLDL) cholesterol measurementOrdered By: Jairon Medel on 08-28-2024 Calculated very low density lipoprotein (VLDL) cholesterol measurement 23 mg/dL 5-40 [facility] LDL calc ser/plasOrdered By: Jairon Medel on 08-28-2024 Cholesterol in LDL [Mass/Vol] 46 mg/dL [facility] Comment on above: Zxhmofsyje=195-952 m g/dL & Higher Ztvp=578 mg/dL or greater Laboratory - Chemistry and C hemistry - challengeOrdered By: Jairon Medel on 08-28-2024 AST [Catalytic activity/Vol] 15 U/L <32 [facility] Screening total cholesterol/ high density lipoprotein (HDL) cholesterol ratioOrdered By: Jairon Medel on 08-28-2024 Cholesterol.total/Luisa sterol in HDL [Mass ratio] 2.33 {ratio} [facility] Serum globulin measurementOr dered By: Jairon Medel on 08-28-2024 Globulin (S) [Mass/Vol] 2.2 g/dL 2.2-4.2 [facility] Serum or plasma alanine crane otransferase (ALT) measurementOrdered By: Jairon Medel on 08-28-2024 ALT [Catalytic activity/Vol] 9 U/L <35 [facility] Serum or plasma albumin krissy urement (mass/volume)Ordered By: Carrillopleasant hopemakenzie Medel on 08-28-2024 Albumin [Mass/Vol] 3.7 g/dL 3.4-4.8 [facility] Serum or plasma alkaline luis sphatase measurementOrdered By: Jairon Medel 08-28-2024 ALP [Catalytic activity/Vol] 73 U/L 35-104 [facility] Serum or plasma cholesterol in HDL measurement (mass/volume)Ordered By: Jairon Medel on 08-28-2024 Cholesterol in HDL [Mass/Vol] 52 mg/dL >40 [facility] Comment on above: National Cholesterol Education Program (NCEP) guidelines:<40 mg/dL: Low HDL-cholesterol (major risk factor for CHD)>= 60 mg/dL: High HDL-cholesterol (negative risk factor for CHD)HDL-cholesterol is affected by a number of factors, e.g. smoking, exercise, hormones, sex and age. Serum or plasma cholesterol measurement (mass/volume)Ordered By: Jairon Medel on 08-28-2024 Cholesterol [Mass/Vol] 121 mg/dL <201 [facility] Comment on above: Cholesterol level, D esirable <200 mg/dLBorderline high cholesterol 200-239 mg/dLHigh cholesterol >=240 mg/dLRecommendations of the NCEP Adult Treatment Panel for the following risk-cutoff thresholds for the [place] population. Serum or plasma valproate me asurement (mass/volume)Ordered By: Jairon Medel on 08-28-2024 Valproate [Mass/Vol] 14 ug/mL Low 50-100 [facility] Comment on above: Valproic Acid concen trations >100 ug/mL are potentially toxic. Total proteinOrdered By: Masoud Medel on 08-28-2024 Protein [Mass/Vol] 5.9 g/dL 5.9-8.4 [facility] Triglycerides measurementOrd ered By: Jairon Medel on 08-28-2024 Triglyceride [Mass/Vol] 115 mg/dL <199 [facility] Comment on above: The drugs N-Acetylcy steine and Metamizole may falsely depress this assay. Normal range: <150 mg/dLBorderline High: 150-199 mg/dLHigh: 200-499 mg/dLVery High: >500 mg/dL Absolute lymphocyte countOrd ered By: Jairon Medel on 08-21-2024 Lymphocytes Auto (Unsp spec) [#/Vol] 1.69 10*3/uL 0.83-4.51 [facility] Absolute neutrophil countOrd ered By: Jairon Medel on 08-21-2024 Neutrophils (Bld) [#/Vol] 4.3 10*3/uL 2.0-7.7 [facility] Anion gap in Serum or Plasma Ordered By: Jairon Medel on 08-21-2024 Anion gap [Moles/Vol] 10 mmol/L 5-15 [facility] Automated lymphocyte count a s percentage of total leukocytesOrdered By: Jairon Medel on 08-21-2024 Lymphocytes/100 WBC Auto (Unsp spec) 24.9 % 19-41 [facility] BUN/creatinine ratioOrdered By: Jairon Medel on 08-21-2024 Urea nitrogen/Creatinine [Mass ratio] 21.2 mg/mg High 10-20 [facility] Basophil percentageOrdered B y: Jairon Medel on 08-21-2024 Basophils/100 WBC (Bld) 0.7 % 0-1 [facility] Carbon dioxide, total [Moles /volume] in Central venous bloodOrdered By: Jairon Medel on 08-21-2024 CO2 [Moles/Vol] 24.4 mmol/L 21.0-32.0 [facility] Chloride assayOrdered By: Pooja pfeiffer Gianfranco on 08-21-2024 Chloride [Moles/Vol] 108 mmol/L 98-108 [facility] Eosinophil percentageOrdered By: Jairon Medel on 08-21-2024 Eosinophils/100 WBC (Bld) 1.9 % 0-5 [facility] Erythrocyte distribution wid th ratioOrdered By: sreekanthpleasant hopemakenzie Medel on 08-21-2024 Erythrocyte distribution width (RBC) [Ratio] 14.2 % 11.6-14.6 [facility] Erythrocyte distribution wid th standard deviationOrdered By: Jairon Medel on 08-21-2024 Erythrocyte distribution width (RBC) [Ratio] 47.2 fl High 35.1-43.9 [facility] Glomerular filtration rate ( GFR) estimation/1.73 sq m using serum, plasma, or whole bOrdered By: sreekanthpleasant hopemakenzie Medel on 08-21-2024 GFR/1.73 sq M.predicted among non-blacks MDRD (S/P/Bld) [Vol rate/Area] 67 mL/min/{1.73_m2} >60 [facility] Comment on above: mL/min/1.73m2 CKD-EP I Creatinine Equation (2020) Hematocrit Auto (Bld) [Volum e fraction]Ordered By: Jairon Medel on 08-21-2024 Hematocrit (Bld) [Volume fraction] 31.9 % Low 37-47 [facility] Hemoglobin measurementOrdere d By: Jairon Medel on 08-21-2024 Hemoglobin (Bld) [Mass/Vol] 10.2 g/dL Low 12.0-15.0 [facility] Immature granulocytes/100 WB C Auto (Bld)Ordered By: Jairon Medel on 08-21-2024 Immature granulocytes/100 WBC (Bld) 0.100 % 0.0-0.9 [facility] Comment on above: IG% - Immature Granu locytes (promyelocytes, myelocytes and metamyelocytes) > 1% indicates that a LEFT SHIFT is Present. MCV (mean corpuscular volume ) determinationOrdered By: Jairon Medel 08-21-2024 MCV (RBC) [Entitic vol] 91.7 fL 81-99 [facility] Mean corpuscular hemoglobin (MCH) determinationOrdered By: Jairon Medel on 08-21-2024 MCH (RBC) [Entitic mass] 29.3 pg 27.0-32.0 [facility] Mean corpuscular hemoglobin concentration (MCHC) determinationOrdered By: Jairon Medel on 08-21-2024 MCHC (RBC) [Mass/Vol] 32.0 g/dL 32-36 [facility] Mean platelet volume determi nationOrdered By: Jairon Medel on 08-21-2024 Platelet mean volume (Bld) [Entitic vol] 10.6 fL 6.2-12.0 [facility] Monocyte percentageOrdered B y: Jairon Medel on 08-21-2024 Monocytes/100 WBC (Bld) 9.0 % 0-10 [facility] Neutrophil percentageOrdered By: Jairon Medel on 08-21-2024 Neutrophils/100 WBC (Bld) 63.4 % 47-70 [facility] Nucleated red blood cell per centageOrdered By: Jairon Medel on 08-21-2024 Nucleated RBC/100 WBC (Bld) [Ratio] 0 % 0-5 [facility] Platelet countOrdered By: Pooja Medel on 08-21-2024 Platelets (Bld) [#/Vol] 232 10*3/uL 150-450 [facility] Potassium measurement (mass/ volume)Ordered By: Jairon Medel on 08-21-2024 Potassium (Unsp spec) [Mass/Vol] 4.4 mmol/L 3.3-5.1 [facility] RBC Auto (Bld) [#/Vol]Ordere d By: Jairon Medel on 08-21-2024 RBC (Bld) [#/Vol] 3.48 10*6/uL Low 4.2-5.4 [facility] Serum creatinine measurement (mass/volume)Ordered By: Jairon Medel on 08-21-2024 Creatinine [Mass/Vol] 0.85 mg/dL 0.70-1.20 [facility] Serum glucose measurement (m ass/volume)Ordered By: Jairon Medel on 08-21-2024 Glucose [Mass/Vol] 95 mg/dL 70-99 [facility] Serum or plasma calcium krissy urement (mass/volume)Ordered By: Goldiemakenzie Torojenifersophia on 08-21-2024 Calcium [Mass/Vol] 9.4 mg/dL 7.6-11.0 [facility] Serum or plasma urea nitroge n measurement (mass/volume)Ordered By: Poojamargarette Medel on 08-21-2024 Urea nitrogen [Mass/Vol] 18 mg/dL 4-19 [facility] Sodium levelOrdered By: sreekanth feliciano Cortezjenifersophia on 08-21-2024 Sodium [Moles/Vol] 142 mmol/L 133-145 [facility] White blood cell (WBC) count Ordered By: Poojasreekanthmahadmakenzie Torojenifersophia on 08-21-2024 WBC (Bld) [#/Vol] 6.8 10*3/uL 4.4-11.0 [facility] Emergency Department Summary on 07-24-2024 Emergency Department Summary [facility] Medical Records Department [address] [place] [address] Emergency Department Summary 07/24/24 MR#: [id number] Acct: [id number] Name: CT DALTON Rep #: [id number] : 1940 83 From: Jean Claude Harry [...] PO DAILY 04/20/17 04/27/17 0 8:00 History mnfpooritgma-Ah-qlcf-m inerals 1 ea PO DAILY 04/20/17 Unknown [...] range of motion. Upper extremities nontender normal insole rounder strength. Neurologically she is awake and alert. She answers questions she does have dementia and some confusion. She does follow commands. Const Vital Signs: 07/24/24 01:24 07/24/24 01:24 Temperature 98 F Temperature Source Oral Pulse Rate 53 L Respirator (more content not included)... Normal [facility] HIP, UNI W/ Pelvis 2-3 Views on 07-24-2024 HIP, UNI W/ Pelvis 2-3 Views [facility] Imaging Services [address] [place], [place] [id number] HIP, UNI W/ Pelvis 2-3 Views MR#: [id number] Acct: [id number] Name: CT DALTON Rep #: [id number] : 1940 F 83 From: Lauri mason MD PCP: Dr. Jairon Medel MD Status: REG ER Study: HIP, UNI W/ Pelvis 2-3 Views Date of Exam: Exam# [id number] Ordering Dr: Jean Claude Harry MD PROCEDURE: [...] Right hip moderate degenerative changes. Reading Location: [place] [address] CC: Dr. Jiaron Medel MD; Dr. Jean Claude Harry MD Striker Off: Signed Normal [facility] Absolute lymphocyte countOrd ered By: Jairon Medel on 06-26-2024 Lymphocytes Auto (Unsp spec) [#/Vol] 2.05 10*3/uL 0.83-4.51 [facility] Absolute neutrophil countOrd ered By: Jairon Medel on 06-26-2024 Neutrophils (Bld) [#/Vol] 3.9 10*3/uL 2.0-7.7 [facility] Anion gap in Serum or Plasma Ordered By: Jairon Medel on 06-26-2024 Anion gap [Moles/Vol] 9 mmol/L 5-15 [facility] Automated lymphocyte count a s percentage of total leukocytesOrdered By: Jairon Medel on 06-26-2024 Lymphocytes/100 WBC Auto (Unsp spec) 30.5 % - [facility] BUN/creatinine ratioOrdered By: Jairon Medel on 06-26-2024 Urea nitrogen/Creatinine [Mass ratio] 20.9 mg/mg High 10-20 [facility] Basophil percentageOrdered B y: Jairon Medel on 06-26-2024 Basophils/100 WBC (Bld) 0.4 % 0-1 [facility] Carbon dioxide, total [Moles /volume] in Central venous bloodOrdered By: Jairon Medel on 06-26-2024 CO2 [Moles/Vol] 23.5 mmol/L 21.0-32.0 [facility] Chloride assayOrdered By: Pooja Medel on 06-26-2024 Chloride [Moles/Vol] 107 mmol/L 98-108 [facility] Eosinophil percentageOrdered By: Jairon Medel on 06-26-2024 Eosinophils/100 WBC (Bld) 1.9 % 0-5 [facility] Erythrocyte distribution wid th ratioOrdered By: sreekanthpleasant hopemakenzie Medel on 06-26-2024 Erythrocyte distribution width (RBC) [Ratio] 14.1 % 11.6-14.6 [facility] Erythrocyte distribution wid th standard deviationOrdered By: sreekanthpleasant hopemakenzie Medel on 06-26-2024 Erythrocyte distribution width (RBC) [Ratio] 46.5 fl High 35.1-43.9 [facility] Glomerular filtration rate ( GFR) estimation/1.73 sq m using serum, plasma, or whole bOrdered By: Jairon Medel on 06-26-2024 GFR/1.73 sq M.predicted among non-blacks MDRD (S/P/Bld) [Vol rate/Area] 55 mL/min/{1.73_m2} Low >60 [facility] Comment on above: mL/min/1.73m2 CKD-EP I Creatinine Equation (2020) Hematocrit Auto (Bld) [Volum e fraction]Ordered By: Jiaron Medel on 06-26-2024 Hematocrit (Bld) [Volume fraction] 32.7 % Low 37-47 [facility] Hemoglobin measurementOrdere d By: Jairon Medel on 06-26-2024 Hemoglobin (Bld) [Mass/Vol] 10.1 g/dL Low 12.0-15.0 [facility] Immature granulocytes/100 WB C Auto (Bld)Ordered By: Jairon Medel on 06-26-2024 Immature granulocytes/100 WBC (Bld) 0.400 % 0.0-0.9 [facility] Comment on above: IG% - Immature Granu locytes (promyelocytes, myelocytes and metamyelocytes) > 1% indicates that a LEFT SHIFT is Present. MCV (mean corpuscular volume ) determinationOrdered By: Jairon Medel on 06-26-2024 MCV (RBC) [Entitic vol] 90.3 fL 81-99 [facility] Mean corpuscular hemoglobin (MCH) determinationOrdered By: Jairon Medel on 06-26-2024 MCH (RBC) [Entitic mass] 27.9 pg 27.0-32.0 [facility] Mean corpuscular hemoglobin concentration (MCHC) determinationOrdered By: Jairon Medel on 06-26-2024 MCHC (RBC) [Mass/Vol] 30.9 g/dL Low 32-36 [facility] Mean platelet volume determi nationOrdered By: Jairon Medel on 06-26-2024 Platelet mean volume (Bld) [Entitic vol] 10.3 fL 6.2-12.0 [facility] Monocyte percentageOrdered B y: Jairon Medel on 06-26-2024 Monocytes/100 WBC (Bld) 8.8 % 0-10 [facility] Neutrophil percentageOrdered By: [facility] Centermakenzie Medel on 06-26-2024 Neutrophils/100 WBC (Bld) 58.0 % 47-70 [facility] Nucleated red blood cell per centageOrdered By: sreekanthpleasant hopemakenzie Medel on 06-26-2024 Nucleated RBC/100 WBC (Bld) [Ratio] 0 % 0-5 [facility] Platelet countOrdered By: Pooja Medel on 06-26-2024 Platelets (Bld) [#/Vol] 242 10*3/uL 150-450 [facility] Potassium measurement (mass/ volume)Ordered By: Jairon Medel on 06-26-2024 Potassium (Unsp spec) [Mass/Vol] 4.3 mmol/L 3.3-5.1 [facility] RBC Auto (Bld) [#/Vol]Ordere d By: Jairon Medel on 06-26-2024 RBC (Bld) [#/Vol] 3.62 10*6/uL Low 4.2-5.4 [facility] Serum creatinine measurement (mass/volume)Ordered By: Jairon Medel on 06-26-2024 Creatinine [Mass/Vol] 1.01 mg/dL 0.70-1.20 [facility] Serum glucose measurement (m ass/volume)Ordered By: Jairon Medel on 06-26-2024 Glucose [Mass/Vol] 89 mg/dL 70-99 [facility] Serum or plasma calcium krissy urement (mass/volume)Ordered By: Jairon Medel on 06-26-2024 Calcium [Mass/Vol] 9.6 mg/dL 7.6-11.0 [facility] Serum or plasma urea nitroge n measurement (mass/volume)Ordered By: Jairon Medel on 06-26-2024 Urea nitrogen [Mass/Vol] 21 mg/dL High 4-19 [facility] Sodium levelOrdered By: Carrillo malcolmrajesh Gianfranco on 06-26-2024 Sodium [Moles/Vol] 140 mmol/L 133-145 [facility] White blood cell (WBC) count Ordered By: Jairon Medel on 06-26-2024 WBC (Bld) [#/Vol] 6.7 10*3/uL 4.4-11.0 [facility] Absolute lymphocyte countOrd ered By: Jairon Medel on 05-29-2024 Lymphocytes Auto (Unsp spec) [#/Vol] 2.09 10*3/uL 0.83-4.51 [facility] Absolute neutrophil countOrd ered By: Jairon Medel on 05-29-2024 Neutrophils (Bld) [#/Vol] 3.4 10*3/uL 2.0-7.7 [facility] Anion gap in Serum or Plasma Ordered By: Jairon Medel on 05-29-2024 Anion gap [Moles/Vol] 10 mmol/L 5-15 [facility] Automated lymphocyte count a s percentage of total leukocytesOrdered By: Jairon Medel on 05-29-2024 Lymphocytes/100 WBC Auto (Unsp spec) 34.4 % [facility] BUN/creatinine ratioOrdered By: Jairon Medel on 05-29-2024 Urea nitrogen/Creatinine [Mass ratio] 16.9 mg/mg 10-20 [facility] Basophil percentageOrdered B y: Carrillomahadmakenzie Torojenifersophia on 05-29-2024 Basophils/100 WBC (Bld) 1.2 % High 0-1 [facility] Bilirubin directOrdered By: Jiaron Medel on 05-29-2024 Bilirubin.direct [Mass/Vol] 0.17 mg/dL 0.00-0.30 [facility] Bilirubin, totalOrdered By: Jairon Medel on 05-29-2024 Bilirubin [Mass/Vol] 0.35 mg/dL 0.00-1.30 [facility] Carbon dioxide, total [Moles /volume] in Central venous bloodOrdered By: Jairon Medel on 05-29-2024 CO2 [Moles/Vol] 25.1 mmol/L 21.0-32.0 [facility] Chloride assayOrdered By: Pooja sreekanthbraden Medel on 05-29-2024 Chloride [Moles/Vol] 105 mmol/L 98-108 [facility] Eosinophil percentageOrdered By: Jairon Medel on 05-29-2024 Eosinophils/100 WBC (Bld) 1.6 % 0-5 [facility] Erythrocyte distribution wid th (RBC) [Ratio]Ordered By: aJiron Medel on 05-29-2024 Erythrocyte distribution width (RBC) [Entitic vol] 41.0 fL 35.1-43.9 [facility] Erythrocyte distribution wid th ratioOrdered By: Jairon Medel on 05-29-2024 Erythrocyte distribution width (RBC) [Ratio] 13.1 % 11.6-14.6 [facility] Erythrocyte distribution wid th standard deviationOrdered By: Jairon Medel on 05-29-2024 Erythrocyte distribution width (RBC) [Ratio] 41.0 fl 35.1-43.9 [facility] GFR/1.73 sq M.predicted hua g non-blacks MDRD (S/P/Bld) [Vol rate/Area]Ordered By: Jairon Medel on 05-29-2024 Estimated GFR (MDRD) Non-Af Amer 50 Low >60 [facility] Comment on above: mL/min/1.73m2 CKD-EP I Creatinine Equation (2020) Glomerular filtration rate ( GFR) estimation/1.73 sq m using serum, plasma, or whole bOrdered By: Jairon Medel on 05-29-2024 GFR/1.73 sq M.predicted among non-blacks MDRD (S/P/Bld) [Vol rate/Area] 50 mL/min/{1.73_m2} Low >60 [facility] Comment on above: mL/min/1.73m2 CKD-EP I Creatinine Equation (2020) Hematocrit Auto (Bld) [Volum e fraction]Ordered By: Jairon Medel on 05-29-2024 Hematocrit (Bld) [Volume fraction] 33.4 % Low 37-47 [facility] Hemoglobin measurementOrdere d By: Jairon Medel on 05-29-2024 Hemoglobin (Bld) [Mass/Vol] 10.9 g/dL Low 12.0-15.0 [facility] Immature granulocytes/100 WB C Auto (Bld)Ordered By: Jairon Medel on 05-29-2024 Immature granulocytes/100 WBC (Bld) 0.200 % 0.0-0.9 [facility] Comment on above: IG% - Immature Granu locytes (promyelocytes, myelocytes and metamyelocytes) > 1% indicates that a LEFT SHIFT is Present. Laboratory - Chemistry and C hemistry - challengeOrdered By: Jairon Medel on 05-29-2024 AST [Catalytic activity/Vol] 20 U/L <32 [facility] Lymphocytes Auto (Unsp spec) [#/Vol]Ordered By: Jairon Medel on 05-29-2024 Lymphocytes (Bld) [#/Vol] 2.09 10*3/uL 0.83-4.51 [facility] Lymphocytes/100 WBC Auto (Un sp spec)Ordered By: Jairon Medel on 05-29-2024 Lymphocytes/100 WBC (Bld) 34.4 % 19-41 [facility] MCV (mean corpuscular volume ) determinationOrdered By: Jairon Medel on 05-29-2024 MCV (RBC) [Entitic vol] 85.9 fL 81-99 [facility] Mean corpuscular hemoglobin (MCH) determinationOrdered By: Poojasreekanthmahadmakenzie Torojenifersophia on 05-29-2024 MCH (RBC) [Entitic mass] 28.0 pg 27.0-32.0 [facility] Mean corpuscular hemoglobin concentration (MCHC) determinationOrdered By: Jairon Torojenifersophia on 05-29-2024 MCHC (RBC) [Mass/Vol] 32.6 g/dL 32-36 [facility] Mean platelet volume determi nationOrdered By: Poojasreekanthmahadmakenzie Torojenifersophia on 05-29-2024 Platelet mean volume (Bld) [Entitic vol] 10.3 fL 6.2-12.0 [facility] Monocyte percentageOrdered B y: Carrillomahadmakenzie Torojenifersophia on 05-29-2024 Monocytes/100 WBC (Bld) 7.6 % 0-10 [facility] Neutrophil percentageOrdered By: Poojasreekanthmahadmakenzie Torojenifersophia on 05-29-2024 Neutrophils/100 WBC (Bld) 55.0 % 47-70 [facility] Nucleated red blood cell per centageOrdered By: Goldiemakenzie Torojenifersophia on 05-29-2024 Nucleated RBC/100 WBC (Bld) [Ratio] 0 % 0-5 [facility] Platelet countOrdered By: Pooja margarette Cortezjenifersophia on 05-29-2024 Platelets (Bld) [#/Vol] 247 10*3/uL 150-450 [facility] Potassium (Unsp spec) [Mass/ Vol]Ordered By: Jairon Medel on 05-29-2024 Potassium [Moles/Vol] 4.3 mmol/L 3.3-5.1 [facility] Potassium measurement (mass/ volume)Ordered By: Jairon Torojenifersophia on 05-29-2024 Potassium (Unsp spec) [Mass/Vol] 4.3 mmol/L 3.3-5.1 [facility] RBC Auto (Bld) [#/Vol]Ordere d By: Jairon Medel on 05-29-2024 RBC (Bld) [#/Vol] 3.89 10*6/uL Low 4.2-5.4 [facility] Serum creatinine measurement (mass/volume)Ordered By: Jairon Medel on 05-29-2024 Creatinine [Mass/Vol] 1.08 mg/dL 0.70-1.20 [facility] Serum globulin measurementOr dered By: Jairon Medel on 05-29-2024 Globulin (S) [Mass/Vol] 2.5 g/dL 2.2-4.2 [facility] Serum glucose measurement (m ass/volume)Ordered By: Jairon Medel on 05-29-2024 Glucose [Mass/Vol] 89 mg/dL 70-99 [facility] Serum or plasma alanine crane otransferase (ALT) measurementOrdered By: Jairon Medel on 05-29-2024 ALT [Catalytic activity/Vol] 11 U/L <35 [facility] Serum or plasma albumin krissy urement (mass/volume)Ordered By: Jairon Medel on 05-29-2024 Albumin [Mass/Vol] 4.0 g/dL 3.4-4.8 [facility] Serum or plasma alkaline luis sphatase measurementOrdered By: Jairon Medel on 05-29-2024 ALP [Catalytic activity/Vol] 62 U/L 35-104 [facility] Serum or plasma calcium krissy urement (mass/volume)Ordered By: Jairon Medel on 05-29-2024 Calcium [Mass/Vol] 9.8 mg/dL 7.6-11.0 [facility] Serum or plasma urea nitroge n measurement (mass/volume)Ordered By: Jairon Medel on 05-29-2024 Urea nitrogen [Mass/Vol] 18 mg/dL 4-19 [facility] Sodium levelOrdered By: Carrillo Medel on 05-29-2024 Sodium [Moles/Vol] 140 mmol/L 133-145 [facility] Total proteinOrdered By: Masoud Medel on 05-29-2024 Protein [Mass/Vol] 6.4 g/dL 5.9-8.4 [facility] White blood cell (WBC) count Ordered By: Carrillomahadmakenzie Haleysophia on 05-29-2024 WBC (Bld) [#/Vol] 6.1 10*3/uL 4.4-11.0 [facility] Absolute lymphocyte countOrd ered By: Poojasreekanthbraden Medel on 05-24-2024 Lymphocytes Auto (Unsp spec) [#/Vol] 1.90 10*3/uL 0.83-4.51 [facility] Absolute neutrophil countOrd ered By: Jairon Medel on 05-24-2024 Neutrophils (Bld) [#/Vol] 3.1 10*3/uL 2.0-7.7 [facility] Anion gap in Serum or Plasma Ordered By: Jairon Torojenifersophia on 05-24-2024 Anion gap [Moles/Vol] 11 mmol/L 5-15 [facility] Automated lymphocyte count a s percentage of total leukocytesOrdered By: Jairon Torojenifersophia on 05-24-2024 Lymphocytes/100 WBC Auto (Unsp spec) 33.6 % 19-41 [facility] BUN/creatinine ratioOrdered By: Carrillobraden Cortezjenifersophia on 05-24-2024 Urea nitrogen/Creatinine [Mass ratio] 19.7 mg/mg 10-20 [facility] Basophil percentageOrdered B y: Carrillomahadmakenzie Torojenifersophia on 05-24-2024 Basophils/100 WBC (Bld) 1.1 % High 0-1 [facility] Bilirubin, totalOrdered By: Jairon Torojenifersophia on 05-24-2024 Bilirubin [Mass/Vol] 0.29 mg/dL 0.00-1.30 [facility] Carbon dioxide, total [Moles /volume] in Central venous bloodOrdered By: Jairon Torojenifersophia on 05-24-2024 CO2 [Moles/Vol] 23.5 mmol/L 21.0-32.0 [facility] Chloride assayOrdered By: Pooja sreekanthbraden Torojenifersophia on 05-24-2024 Chloride [Moles/Vol] 106 mmol/L 98-108 [facility] Eosinophil percentageOrdered By: Carrillomahadmakenzie Torojenifersophia on 05-24-2024 Eosinophils/100 WBC (Bld) 2.1 % 0-5 [facility] Erythrocyte distribution wid th (RBC) [Ratio]Ordered By: Jairon Medel on 05-24-2024 Erythrocyte distribution width (RBC) [Entitic vol] 41.3 fL 35.1-43.9 [facility] Erythrocyte distribution wid th ratioOrdered By: Jairon Medel on 05-24-2024 Erythrocyte distribution width (RBC) [Ratio] 13.2 % 11.6-14.6 [facility] Erythrocyte distribution wid th standard deviationOrdered By: Jairon Medel on 05-24-2024 Erythrocyte distribution width (RBC) [Ratio] 41.3 fl 35.1-43.9 [facility] GFR/1.73 sq M.predicted hua g non-blacks MDRD (S/P/Bld) [Vol rate/Area]Ordered By: Jairon Medel on 05-24-2024 Estimated GFR (MDRD) Non-Af Amer 52 Low >60 [facility] Comment on above: mL/min/1.73m2 CKD-EP I Creatinine Equation (2020) Glomerular filtration rate ( GFR) estimation/1.73 sq m using serum, plasma, or whole bOrdered By: Jairon Medel on 05-24-2024 GFR/1.73 sq M.predicted among non-blacks MDRD (S/P/Bld) [Vol rate/Area] 52 mL/min/{1.73_m2} Low >60 [facility] Comment on above: mL/min/1.73m2 CKD-EP I Creatinine Equation (2020) Hematocrit Auto (Bld) [Volum e fraction]Ordered By: Jairon Medel on 05-24-2024 Hematocrit (Bld) [Volume fraction] 33.2 % Low 37-47 [facility] Hemoglobin A1c percentageOrd ered By: Jairon Medel on 05-24-2024 HbA1c (Bld) [Mass fraction] 5.5 % <5.7 [facility] Comment on above: Normal < 5.7 % Predi abetic 5.7 - 6.4 % Diabetic >or= 6.5 % Please note range changes. Hemoglobin measurementOrdere d By: Jairon Medel on 05-24-2024 Hemoglobin (Bld) [Mass/Vol] 10.7 g/dL Low 12.0-15.0 [facility] Immature granulocytes/100 WB C Auto (Bld)Ordered By: Jairon Medel on 05-24-2024 Immature granulocytes/100 WBC (Bld) 0.200 % 0.0-0.9 [facility] Comment on above: IG% - Immature Granu locytes (promyelocytes, myelocytes and metamyelocytes) > 1% indicates that a LEFT SHIFT is Present. Laboratory - Chemistry and C hemistry - challengeOrdered By: Jairon Medel on 05-24-2024 AST [Catalytic activity/Vol] 21 U/L <32 [facility] Lymphocytes Auto (Unsp spec) [#/Vol]Ordered By: Jairon Medel on 05-24-2024 Lymphocytes (Bld) [#/Vol] 1.90 10*3/uL 0.83-4.51 [facility] Lymphocytes/100 WBC Auto (Un sp spec)Ordered By: Jairon Medel on 05-24-2024 Lymphocytes/100 WBC (Bld) 33.6 % 19-41 [facility] MCV (mean corpuscular volume ) determinationOrdered By: Jairon Medel on 05-24-2024 MCV (RBC) [Entitic vol] 86.2 fL 81-99 [facility] Mean corpuscular hemoglobin (MCH) determinationOrdered By: Jairon Medel on 05-24-2024 MCH (RBC) [Entitic mass] 27.8 pg 27.0-32.0 [facility] Mean corpuscular hemoglobin concentration (MCHC) determinationOrdered By: Jairon Medel on 05-24-2024 MCHC (RBC) [Mass/Vol] 32.2 g/dL 32-36 [facility] Mean platelet volume determi nationOrdered By: Jairon Medel on 05-24-2024 Platelet mean volume (Bld) [Entitic vol] 10.2 fL 6.2-12.0 [facility] Monocyte percentageOrdered B y: Jairon Medel on 05-24-2024 Monocytes/100 WBC (Bld) 8.1 % 0-10 [facility] Neutrophil percentageOrdered By: Jairon Medel on 05-24-2024 Neutrophils/100 WBC (Bld) 54.9 % 47-70 [facility] Nucleated red blood cell per centageOrdered By: Jairon Medel on 05-24-2024 Nucleated RBC/100 WBC (Bld) [Ratio] 0 % 0-5 [facility] Platelet countOrdered By: Pooja Medel on 05-24-2024 Platelets (Bld) [#/Vol] 264 10*3/uL 150-450 [facility] Potassium (Unsp spec) [Mass/ Vol]Ordered By: Jairon Medel on 05-24-2024 Potassium [Moles/Vol] 3.9 mmol/L 3.3-5.1 [facility] Potassium measurement (mass/ volume)Ordered By: Jairon Medel on 05-24-2024 Potassium (Unsp spec) [Mass/Vol] 3.9 mmol/L 3.3-5.1 [facility] RBC Auto (Bld) [#/Vol]Ordere d By: Jairon Medel on 05-24-2024 RBC (Bld) [#/Vol] 3.85 10*6/uL Low 4.2-5.4 [facility] Serum creatinine measurement (mass/volume)Ordered By: Jairon Medel on 05-24-2024 Creatinine [Mass/Vol] 1.05 mg/dL 0.70-1.20 [facility] Serum globulin measurementOr dered By: Jairon Medel on 05-24-2024 Globulin (S) [Mass/Vol] 2.6 g/dL 2.2-4.2 [facility] Serum glucose measurement (m ass/volume)Ordered By: Jairon Medel on 05-24-2024 Glucose [Mass/Vol] 95 mg/dL 70-99 [facility] Serum or plasma alanine crane otransferase (ALT) measurementOrdered By: Jairon Medel on 05-24-2024 ALT [Catalytic activity/Vol] 11 U/L <35 [facility] Serum or plasma albumin krissy urement (mass/volume)Ordered By: Jairon Medel on 05-24-2024 Albumin [Mass/Vol] 4.0 g/dL 3.4-4.8 [facility] Serum or plasma albumin/glob ulin mass ratioOrdered By: Jairon Medel on 05-24-2024 Albumin/Globulin [Mass ratio] 1.5 {ratio} 0.9-2.4 [facility] Serum or plasma alkaline luis sphatase measurementOrdered By: Jairon Medel on 05-24-2024 ALP [Catalytic activity/Vol] 67 U/L 35-104 [facility] Serum or plasma calcium krissy urement (mass/volume)Ordered By: Jairon Medel on 05-24-2024 Calcium [Mass/Vol] 9.9 mg/dL 7.6-11.0 [facility] Serum or plasma urea nitroge n measurement (mass/volume)Ordered By: Jairon Medel on 05-24-2024 Urea nitrogen [Mass/Vol] 21 mg/dL High 4-19 [facility] Sodium levelOrdered By: Carrillo malcolmrajesh Gianfranco on 05-24-2024 Sodium [Moles/Vol] 141 mmol/L 133-145 [facility] Total proteinOrdered By: Masoud Medel on 05-24-2024 Protein [Mass/Vol] 6.6 g/dL 5.9-8.4 [facility] White blood cell (WBC) count Ordered By: Jairon Medel 05-24-2024 WBC (Bld) [#/Vol] 5.7 10*3/uL 4.4-11.0 [facility] Anion gap in Serum or Plasma Ordered By: Jairon Medel on 05-15-2024 Anion gap [Moles/Vol] 10 mmol/L 5-15 [facility] BUN/creatinine ratioOrdered By: Jairon Medel on 05-15-2024 Urea nitrogen/Creatinine [Mass ratio] 15.3 mg/mg 10-20 [facility] Carbon dioxide, total [Moles /volume] in Central venous bloodOrdered By: Jairon Medel on 05-15-2024 CO2 [Moles/Vol] 25.0 mmol/L 21.0-32.0 [facility] Chloride assayOrdered By: Pooja Medel on 05-15-2024 Chloride [Moles/Vol] 108 mmol/L 98-108 [facility] GFR/1.73 sq M.predicted hua g non-blacks MDRD (S/P/Bld) [Vol rate/Area]Ordered By: Jairon Medel on 05-15-2024 Estimated GFR (MDRD) Non-Af Amer 57 Low >60 [facility] Comment on above: mL/min/1.73m2 CKD-EP I Creatinine Equation (2020) Glomerular filtration rate ( GFR) estimation/1.73 sq m using serum, plasma, or whole bOrdered By: Jairon Medel on 05-15-2024 GFR/1.73 sq M.predicted among non-blacks MDRD (S/P/Bld) [Vol rate/Area] 57 mL/min/{1.73_m2} Low >60 [facility] Comment on above: mL/min/1.73m2 CKD-EP I Creatinine Equation (2020) Potassium (Unsp spec) [Mass/ Vol]Ordered By: Jairon Medel on 05-15-2024 Potassium [Moles/Vol] 3.8 mmol/L 3.3-5.1 [facility] Potassium measurement (mass/ volume)Ordered By: Jairon Medel on 05-15-2024 Potassium (Unsp spec) [Mass/Vol] 3.8 mmol/L 3.3-5.1 [facility] Serum creatinine measurement (mass/volume)Ordered By: Jairon Medel on 05-15-2024 Creatinine [Mass/Vol] 0.98 mg/dL 0.70-1.20 [facility] Serum glucose measurement (m ass/volume)Ordered By: Jairon Medel on 05-15-2024 Glucose [Mass/Vol] 87 mg/dL 70-99 [facility] Serum or plasma calcium krissy urement (mass/volume)Ordered By: Jairon Medel on 05-15-2024 Calcium [Mass/Vol] 9.8 mg/dL 7.6-11.0 [facility] Serum or plasma urea nitroge n measurement (mass/volume)Ordered By: Jairon Torojenifersophia on 05-15-2024 Urea nitrogen [Mass/Vol] 15 mg/dL 4-19 [facility] Sodium levelOrdered By: Carrillo braden Cortezjenifersophia on 05-15-2024 Sodium [Moles/Vol] 143 mmol/L 133-145 [facility] Absolute lymphocyte countOrd ered By: Carrillobraden Cortezjenifersophia on 05-01-2024 Lymphocytes Auto (Unsp spec) [#/Vol] 1.90 10*3/uL 0.83-4.51 [facility] Absolute neutrophil countOrd ered By: Carrillomahadmakenzie Torojenifersophia on 05-01-2024 Neutrophils (Bld) [#/Vol] 2.7 10*3/uL 2.0-7.7 [facility] Anion gap in Serum or Plasma Ordered By: Jairon Medel on 05-01-2024 Anion gap [Moles/Vol] 11 mmol/L 5-15 [facility] Automated lymphocyte count a s percentage of total leukocytesOrdered By: Jairon Torojenifersophia on 05-01-2024 Lymphocytes/100 WBC Auto (Unsp spec) 35.5 % 19-41 [facility] BUN/creatinine ratioOrdered By: Jairon Torojenifersophia on 05-01-2024 Urea nitrogen/Creatinine [Mass ratio] 17.8 mg/mg 10-20 [facility] Basophil percentageOrdered B y: Carrillomahadmakenzie Torojenifersophia on 05-01-2024 Basophils/100 WBC (Bld) 1.5 % High 0-1 [facility] Carbon dioxide, total [Moles /volume] in Central venous bloodOrdered By: Jairon Torojenifersophia on 05-01-2024 CO2 [Moles/Vol] 23.3 mmol/L 21.0-32.0 [facility] Chloride assayOrdered By: Pooja Medel on 05-01-2024 Chloride [Moles/Vol] 107 mmol/L 98-108 [facility] Eosinophil percentageOrdered By: Carrillomahadmakenzie Torojenifersophia on 05-01-2024 Eosinophils/100 WBC (Bld) 2.2 % 0-5 [facility] Erythrocyte distribution wid th (RBC) [Ratio]Ordered By: Jairon Medel on 05-01-2024 Erythrocyte distribution width (RBC) [Entitic vol] 44.5 fL High 35.1-43.9 [facility] Erythrocyte distribution wid th ratioOrdered By: Jairon Medel on 05-01-2024 Erythrocyte distribution width (RBC) [Ratio] 13.0 % 11.6-14.6 [facility] Erythrocyte distribution wid th standard deviationOrdered By: Jairon Medel on 05-01-2024 Erythrocyte distribution width (RBC) [Ratio] 44.5 fl High 35.1-43.9 [facility] GFR/1.73 sq M.predicted hua g non-blacks MDRD (S/P/Bld) [Vol rate/Area]Ordered By: Jairon Medel on 05-01-2024 Estimated GFR (MDRD) Non-Af Amer 58 Low >60 [facility] Comment on above: mL/min/1.73m2 CKD-EP I Creatinine Equation (2020) Glomerular filtration rate ( GFR) estimation/1.73 sq m using serum, plasma, or whole bOrdered By: Jairon Medel on 05-01-2024 GFR/1.73 sq M.predicted among non-blacks MDRD (S/P/Bld) [Vol rate/Area] 58 mL/min/{1.73_m2} Low >60 [facility] Comment on above: mL/min/1.73m2 CKD-EP I Creatinine Equation (2020) Hematocrit Auto (Bld) [Volum e fraction]Ordered By: Jairon Medel on 05-01-2024 Hematocrit (Bld) [Volume fraction] 37.3 % 37-47 [facility] Hemoglobin measurementOrdere d By: Jairon Medel on 05-01-2024 Hemoglobin (Bld) [Mass/Vol] 11.3 g/dL Low 12.0-15.0 [facility] Immature granulocytes/100 WB C Auto (Bld)Ordered By: Jairon Medel on 05-01-2024 Immature granulocytes/100 WBC (Bld) 1.100 % High 0.0-0.9 [facility] Comment on above: IG% - Immature Granu locytes (promyelocytes, myelocytes and metamyelocytes) > 1% indicates that a LEFT SHIFT is Present. Lymphocytes Auto (Unsp spec) [#/Vol]Ordered By: Jairon Medel on 05-01-2024 Lymphocytes (Bld) [#/Vol] 1.90 10*3/uL 0.83-4.51 [facility] Lymphocytes/100 WBC Auto (Un sp spec)Ordered By: Jairon Medel on 05-01-2024 Lymphocytes/100 WBC (Bld) 35.5 % 19-41 [facility] MCV (mean corpuscular volume ) determinationOrdered By: Jairon Medel on 05-01-2024 MCV (RBC) [Entitic vol] 93.5 fL 81-99 [facility] Mean corpuscular hemoglobin (MCH) determinationOrdered By: Jairon Medel on 05-01-2024 MCH (RBC) [Entitic mass] 28.3 pg 27.0-32.0 [facility] Mean corpuscular hemoglobin concentration (MCHC) determinationOrdered By: Jairon Medel on 05-01-2024 MCHC (RBC) [Mass/Vol] 30.3 g/dL Low 32-36 [facility] Mean platelet volume determi nationOrdered By: Jairon Medel on 05-01-2024 Platelet mean volume (Bld) [Entitic vol] 10.2 fL 6.2-12.0 [facility] Monocyte percentageOrdered B y: Jairon Medel on 05-01-2024 Monocytes/100 WBC (Bld) 9.0 % 0-10 [facility] Neutrophil percentageOrdered By: margarette Medel on 05-01-2024 Neutrophils/100 WBC (Bld) 50.7 % 47-70 [facility] Nucleated red blood cell per centageOrdered By: Jairon Medel on 05-01-2024 Nucleated RBC/100 WBC (Bld) [Ratio] 0 % 0-5 [facility] Platelet countOrdered By: Pooja Medel on 05-01-2024 Platelets (Bld) [#/Vol] 235 10*3/uL 150-450 [facility] Potassium (Unsp spec) [Mass/ Vol]Ordered By: Poojasreekanthmahadmakenzie Torojenifersophia on 05-01-2024 Potassium [Moles/Vol] 4.3 mmol/L 3.3-5.1 [facility] Potassium measurement (mass/ volume)Ordered By: Jairon Torojenifersophia on 05-01-2024 Potassium (Unsp spec) [Mass/Vol] 4.3 mmol/L 3.3-5.1 [facility] RBC Auto (Bld) [#/Vol]Ordere d By: Jairon Cortezdorcas on 05-01-2024 RBC (Bld) [#/Vol] 3.99 10*6/uL Low 4.2-5.4 [facility] Serum creatinine measurement (mass/volume)Ordered By: Jairon Torojenifersophia on 05-01-2024 Creatinine [Mass/Vol] 0.96 mg/dL 0.70-1.20 [facility] Serum glucose measurement (m ass/volume)Ordered By: Jairon Medel on 05-01-2024 Glucose [Mass/Vol] 89 mg/dL 70-99 [facility] Serum or plasma calcium krissy urement (mass/volume)Ordered By: Jairon Torojenifersophia on 05-01-2024 Calcium [Mass/Vol] 9.8 mg/dL 7.6-11.0 [facility] Serum or plasma urea nitroge n measurement (mass/volume)Ordered By: Jairon Medel on 05-01-2024 Urea nitrogen [Mass/Vol] 17 mg/dL 4-19 [facility] Sodium levelOrdered By: Carrillo braden Cortezjenifersophia on 05-01-2024 Sodium [Moles/Vol] 141 mmol/L 133-145 [facility] White blood cell (WBC) count Ordered By: Jairon Torojenifersophia on 05-01-2024 WBC (Bld) [#/Vol] 5.4 10*3/uL 4.4-11.0 [facility] Absolute lymphocyte countOrd ered By: Jairon Medel on 04-03-2024 Lymphocytes Auto (Unsp spec) [#/Vol] 1.70 10*3/uL 0.83-4.51 [facility] Absolute neutrophil countOrd ered By: Jairon Torojenifersophia on 04-03-2024 Neutrophils (Bld) [#/Vol] 3.0 10*3/uL 2.0-7.7 [facility] Automated lymphocyte count a s percentage of total leukocytesOrdered By: Jairon Medel on 04-03-2024 Lymphocytes/100 WBC Auto (Unsp spec) 32.1 % 19-41 [facility] Basophil percentageOrdered B y: Jairon Medel on 04-03-2024 Basophils/100 WBC (Bld) 1.3 % High 0-1 [facility] Blood urea nitrogen (BUN)/cr eatinine ratioOrdered By: Jairon Medel on 04-03-2024 Urea nitrogen/Creatinine [Mass ratio] 21.1 mg/mg High 10-20 [facility] Carbon dioxide measurementOr dered By: Jairon Medel on 04-03-2024 CO2 [Moles/Vol] 27.0 mmol/L 21.0-32.0 [facility] Chloride measurementOrdered By: sreekanthpleasant hopemakenzie Medel on 04-03-2024 Chloride [Moles/Vol] 111 mmol/L High 98-107 [facility] Eosinophil percentageOrdered By: Jairon Medel on 04-03-2024 Eosinophils/100 WBC (Bld) 2.3 % 0-5 [facility] Erythrocyte distribution wid th (RBC) [Ratio]Ordered By: Jairon Medel on 04-03-2024 Erythrocyte distribution width (RBC) [Entitic vol] 43.2 fL 35.1-43.9 [facility] Erythrocyte distribution wid th ratioOrdered By: sreekanthpleasant hopemakenzie Medel on 04-03-2024 Erythrocyte distribution width (RBC) [Ratio] 13.2 % 11.6-14.6 [facility] Erythrocyte distribution wid th standard deviationOrdered By: sreekanthpleasant hopemakenzie Medel on 04-03-2024 Erythrocyte distribution width (RBC) [Ratio] 43.2 fl 35.1-43.9 [facility] Estimated glomerular filtrat ion rate (GFR) AmericanOrdered By: Jairon Medel on 04-03-2024 Estimated GFR (MDRD) Amer 72 mL/min >60 [facility] Comment on above: GFR Calc Glomerular filtration rate ( GFR) estimationOrdered By: Jairon Medel on 04-03-2024 Estimated GFR (MDRD) Non-Af Amer 59 mL/min Low >60 [facility] Comment on above: Non- GFR Calc GFR/1.73 sq M.predicted among non-blacks MDRD (S/P/Bld) [Vol rate/Area] 59 mL/min/{1.73_m2} Low >60 [facility] Comment on above: Non- GFR Calc Glucose measurementOrdered B y: Jairon Medel on 04-03-2024 Glucose [Mass/Vol] 93 mg/dL 74-106 [facility] Hematocrit Auto (Bld) [Volum e fraction]Ordered By: Jairon Medel on 04-03-2024 Hematocrit (Bld) [Volume fraction] 31.6 % Low 37-47 [facility] Hemoglobin measurementOrdere d By: Jairon Medel on 04-03-2024 Hemoglobin (Bld) [Mass/Vol] 9.7 g/dL Low 12.0-15.0 [facility] Immature granulocytes/100 WB C Auto (Bld)Ordered By: Jairon Medel on 04-03-2024 Immature granulocytes/100 WBC (Bld) 0.200 % 0.0-0.9 [facility] Comment on above: IG% - Immature Granu locytes (promyelocytes, myelocytes and metamyelocytes) > 1% indicates that a LEFT SHIFT is Present. Lymphocytes Auto (Unsp spec) [#/Vol]Ordered By: Jairon Medel on 04-03-2024 Lymphocytes (Bld) [#/Vol] 1.70 10*3/uL 0.83-4.51 [facility] Lymphocytes/100 WBC Auto (Un sp spec)Ordered By: Jairon Medel on 04-03-2024 Lymphocytes/100 WBC (Bld) 32.1 % 19-41 [facility] MCV (mean corpuscular volume ) determinationOrdered By: Jairon Medel on 04-03-2024 MCV (RBC) [Entitic vol] 91.1 fL 81-99 [facility] Mean corpuscular hemoglobin (MCH) determinationOrdered By: Jairon Medel on 04-03-2024 MCH (RBC) [Entitic mass] 28.0 pg 27.0-32.0 [facility] Mean corpuscular hemoglobin concentration (MCHC) determinationOrdered By: Jairon Medel on 04-03-2024 MCHC (RBC) [Mass/Vol] 30.7 g/dL Low 32-36 [facility] Mean platelet volume determi nationOrdered By: Jairon Medel on 04-03-2024 Platelet mean volume (Bld) [Entitic vol] 9.9 fL 6.2-12.0 [facility] Monocyte percentageOrdered B y: Jairon Medel on 04-03-2024 Monocytes/100 WBC (Bld) 8.3 % 0-10 [facility] Neutrophil percentageOrdered By: Jairon Medel on 04-03-2024 Neutrophils/100 WBC (Bld) 55.8 % 47-70 [facility] Nucleated red blood cell per centageOrdered By: Jairon Medel on 04-03-2024 Nucleated RBC/100 WBC (Bld) [Ratio] 0 % 0-5 [facility] Platelet countOrdered By: Pooja Medel on 04-03-2024 Platelets (Bld) [#/Vol] 229 10*3/uL 150-450 [facility] Potassium measurementOrdered By: Jairon Medel on 04-03-2024 Potassium [Moles/Vol] 4.4 mmol/L 3.5-5.1 [facility] RBC Auto (Bld) [#/Vol]Ordere d By: Jairon Medel on 04-03-2024 RBC (Bld) [#/Vol] 3.47 10*6/uL Low 4.2-5.4 [facility] Serum anion gap measurementO rdered By: Jairon Medel on 04-03-2024 Anion gap [Moles/Vol] 6 mmol/L 5-15 [facility] Serum or plasma calcium krissy urement (mass/volume)Ordered By: Poojasreekanthbraden Cortezdorcas on 04-03-2024 Calcium [Mass/Vol] 9.4 mg/dL 8.5-10.1 [facility] Serum or plasma creatinine m easurement (mass/volume)Ordered By: Poojasreekanthmahadmakenzie Torojenifersophia on 04-03-2024 Creatinine [Mass/Vol] 0.95 mg/dL 0.55-1.02 [facility] Comment on above: The validity of the calculated GFR & GFRAA in patients over 70 years has not been determined. Clinical correlation is essential. Serum or plasma urea nitroge n measurement (mass/volume)Ordered By: Poojasreekanthmahadmakenzie Torojenifersophia on 04-03-2024 Urea nitrogen [Mass/Vol] 20 mg/dL High 7-18 [facility] Sodium levelOrdered By: Carrillo feliciano Cortezjenifersophia on 04-03-2024 Sodium [Moles/Vol] 144 mmol/L 136-145 [facility] White blood cell (WBC) count Ordered By: Poojasreekanthbraden Medel on 04-03-2024 WBC (Bld) [#/Vol] 5.3 10*3/uL 4.4-11.0 [facility] Absolute lymphocyte countOrd ered By: Jairon Medel on 03-27-2024 Lymphocytes Auto (Unsp spec) [#/Vol] 2.06 10*3/uL 0.83-4.51 [facility] Absolute neutrophil countOrd ered By: Jairon Medel on 03-27-2024 Neutrophils (Bld) [#/Vol] 3.3 10*3/uL 2.0-7.7 [facility] Automated lymphocyte count a s percentage of total leukocytesOrdered By: Poojasreekanthmahadmakenzie Torojenifersophia on 03-27-2024 Lymphocytes/100 WBC Auto (Unsp spec) 33.5 % 19-41 [facility] Basophil percentageOrdered B y: Goldiemakenzie Torojenifersophia on 03-27-2024 Basophils/100 WBC (Bld) 0.8 % 0-1 [facility] Blood urea nitrogen (BUN)/cr eatinine ratioOrdered By: Jairon Medel on 03-27-2024 Urea nitrogen/Creatinine [Mass ratio] 19.3 mg/mg 10-20 [facility] Carbon dioxide measurementOr dered By: Jairon Medel on 03-27-2024 CO2 [Moles/Vol] 27.0 mmol/L 21.0-32.0 [facility] Chloride measurementOrdered By: Jairon Medel on 03-27-2024 Chloride [Moles/Vol] 110 mmol/L High 98-107 [facility] Eosinophil percentageOrdered By: Jairon Medel on 03-27-2024 Eosinophils/100 WBC (Bld) 2.3 % 0-5 [facility] Erythrocyte distribution wid th (RBC) [Ratio]Ordered By: Jairon Medel on 03-27-2024 Erythrocyte distribution width (RBC) [Entitic vol] 43.7 fL 35.1-43.9 [facility] Erythrocyte distribution wid th ratioOrdered By: Jairon Medel on 03-27-2024 Erythrocyte distribution width (RBC) [Ratio] 13.2 % 11.6-14.6 [facility] Erythrocyte distribution wid th standard deviationOrdered By: Jairon Medel on 03-27-2024 Erythrocyte distribution width (RBC) [Ratio] 43.7 fl 35.1-43.9 [facility] Estimated glomerular filtrat ion rate (GFR) AmericanOrdered By: Jairon Medel on 03-27-2024 Estimated GFR (MDRD) Amer 69 mL/min >60 [facility] Comment on above: GFR Calc Glomerular filtration rate ( GFR) estimationOrdered By: Jairon Medel on 03-27-2024 Estimated GFR (MDRD) Non-Af Amer 57 mL/min Low >60 [facility] Comment on above: Non- GFR Calc GFR/1.73 sq M.predicted among non-blacks MDRD (S/P/Bld) [Vol rate/Area] 57 mL/min/{1.73_m2} Low >60 [facility] Comment on above: Non- GFR Calc Glucose measurementOrdered B y: Jairon Medel on 03-27-2024 Glucose [Mass/Vol] 89 mg/dL 74-106 [facility] Hematocrit Auto (Bld) [Volum e fraction]Ordered By: Jairon Medel on 03-27-2024 Hematocrit (Bld) [Volume fraction] 30.9 % Low 37-47 [facility] Hemoglobin measurementOrdere d By: Jairon Medel on 03-27-2024 Hemoglobin (Bld) [Mass/Vol] 9.6 g/dL Low 12.0-15.0 [facility] Immature granulocytes/100 WB C Auto (Bld)Ordered By: margarette Medel on 03-27-2024 Immature granulocytes/100 WBC (Bld) 0.500 % 0.0-0.9 [facility] Comment on above: IG% - Immature Granu locytes (promyelocytes, myelocytes and metamyelocytes) > 1% indicates that a LEFT SHIFT is Present. Lymphocytes Auto (Unsp spec) [#/Vol]Ordered By: Jairon Medel on 03-27-2024 Lymphocytes (Bld) [#/Vol] 2.06 10*3/uL 0.83-4.51 [facility] Lymphocytes/100 WBC Auto (Un sp spec)Ordered By: Jairon Medel on 03-27-2024 Lymphocytes/100 WBC (Bld) 33.5 % 19-41 [facility] MCV (mean corpuscular volume ) determinationOrdered By: Jairon Medel on 03-27-2024 MCV (RBC) [Entitic vol] 90.1 fL 81-99 [facility] Mean corpuscular hemoglobin (MCH) determinationOrdered By: Jairon Medel on 03-27-2024 MCH (RBC) [Entitic mass] 28.0 pg 27.0-32.0 [facility] Mean corpuscular hemoglobin concentration (MCHC) determinationOrdered By: Jairon Medel on 03-27-2024 MCHC (RBC) [Mass/Vol] 31.1 g/dL Low 32-36 [facility] Mean platelet volume determi nationOrdered By: Jairon Medel on 03-27-2024 Platelet mean volume (Bld) [Entitic vol] 10.2 fL 6.2-12.0 [facility] Monocyte percentageOrdered B y: Carrillomahadmakenzie Torojenifersophia on 03-27-2024 Monocytes/100 WBC (Bld) 9.6 % 0-10 [facility] Neutrophil percentageOrdered By: Jairon Torojenifersophia on 03-27-2024 Neutrophils/100 WBC (Bld) 53.3 % 47-70 [facility] Nucleated red blood cell per centageOrdered By: Jairon Medel on 03-27-2024 Nucleated RBC/100 WBC (Bld) [Ratio] 0 % 0-5 [facility] Platelet countOrdered By: Pooja sreekanthbraden Medel on 03-27-2024 Platelets (Bld) [#/Vol] 235 10*3/uL 150-450 [facility] Potassium measurementOrdered By: Jairon Medel on 03-27-2024 Potassium [Moles/Vol] 4.0 mmol/L 3.5-5.1 [facility] RBC Auto (Bld) [#/Vol]Ordere d By: Jairon Medel on 03-27-2024 RBC (Bld) [#/Vol] 3.43 10*6/uL Low 4.2-5.4 [facility] Serum anion gap measurementO rdered By: Jairon Medel on 03-27-2024 Anion gap [Moles/Vol] 6 mmol/L 5-15 [facility] Serum or plasma calcium krissy urement (mass/volume)Ordered By: Jairon Medel on 03-27-2024 Calcium [Mass/Vol] 9.3 mg/dL 8.5-10.1 [facility] Serum or plasma creatinine m easurement (mass/volume)Ordered By: Jairon Medel on 03-27-2024 Creatinine [Mass/Vol] 0.98 mg/dL 0.55-1.02 [facility] Comment on above: The validity of the calculated GFR & GFRAA in patients over 70 years has not been determined. Clinical correlation is essential. Serum or plasma urea nitroge n measurement (mass/volume)Ordered By: Jairon Medel on 03-27-2024 Urea nitrogen [Mass/Vol] 19 mg/dL High 7-18 [facility] Sodium levelOrdered By: Carrillo Medel on 03-27-2024 Sodium [Moles/Vol] 143 mmol/L 136-145 [facility] White blood cell (WBC) count Ordered By: Jairon Medel on 03-27-2024 WBC (Bld) [#/Vol] 6.2 10*3/uL 4.4-11.0 [facility] 02-XL-Kogvkoj DOrdered By: Sophia Medel on 02-28-2024 Vitamin D 25-Hydroxy 60.8 ng/mL [facility] Comment on above: Vitamin D 25(OH) Sta tus Range Deficiency <20 ng/mL (50nmol/L) Insufficiency 20 - 30 ng/mL (50 - 75 nmol/L) Sufficiency 30 - 100 ng/mL (75 - 250 nmol/L) Toxicity >100 ng/mL (>250 nmol/L) Absolute lymphocyte countOrd ered By: Jairon Medel on 02-28-2024 Lymphocytes Auto (Unsp spec) [#/Vol] 1.75 10*3/uL 0.83-4.51 [facility] Absolute neutrophil countOrd ered By: Jairon Medel on 02-28-2024 Neutrophils (Bld) [#/Vol] 3.9 10*3/uL 2.0-7.7 [facility] Albumin to globulin ratioOrd ered By: Jairon Medel on 02-28-2024 Albumin/Globulin [Mass ratio] 1.0 {ratio} 0.9-2.4 [facility] Automated lymphocyte count a s percentage of total leukocytesOrdered By: Jairon Medel on 02-28-2024 Lymphocytes/100 WBC Auto (Unsp spec) 27.3 % 19-41 [facility] Basophil percentageOrdered B y: Jairon Medel on 02-28-2024 Basophils/100 WBC (Bld) 0.8 % 0-1 [facility] Bilirubin, totalOrdered By: Jairon Medel on 02-28-2024 Bilirubin [Mass/Vol] 0.20 mg/dL 0.20-1.00 [facility] Comment on above: For patients on eltr ombopag therapy, use of Dimension [place] TBIL is not recommended. Blood urea nitrogen (BUN)/cr eatinine ratioOrdered By: Jairon Medel on 02-28-2024 Urea nitrogen/Creatinine [Mass ratio] 24.1 mg/mg High 10-20 [facility] Carbon dioxide measurementOr dered By: Jairon Medel on 02-28-2024 CO2 [Moles/Vol] 27.0 mmol/L 21.0-32.0 [facility] Chloride measurementOrdered By: Jairon Medel on 02-28-2024 Chloride [Moles/Vol] 111 mmol/L High 98-107 [facility] Eosinophil percentageOrdered By: Jairon Medel on 02-28-2024 Eosinophils/100 WBC (Bld) 2.3 % 0-5 [facility] Erythrocyte distribution wid th (RBC) [Ratio]Ordered By: Jairon Medel on 02-28-2024 Erythrocyte distribution width (RBC) [Entitic vol] 43.7 fL 35.1-43.9 [facility] Erythrocyte distribution wid th ratioOrdered By: Jairon Medel on 02-28-2024 Erythrocyte distribution width (RBC) [Ratio] 13.4 % 11.6-14.6 [facility] Erythrocyte distribution wid th standard deviationOrdered By: Jairon Medel on 02-28-2024 Erythrocyte distribution width (RBC) [Ratio] 43.7 fl 35.1-43.9 [facility] Estimated glomerular filtrat ion rate (GFR) AmericanOrdered By: Jairon Medel on 02-28-2024 Estimated GFR (MDRD) Amer 72 mL/min >60 [facility] Comment on above: GFR Calc Glomerular filtration rate ( GFR) estimationOrdered By: Jairon Medel on 02-28-2024 Estimated GFR (MDRD) Non-Af Amer 59 mL/min Low >60 [facility] Comment on above: Non- GFR Calc GFR/1.73 sq M.predicted among non-blacks MDRD (S/P/Bld) [Vol rate/Area] 59 mL/min/{1.73_m2} Low >60 [facility] Comment on above: Non- GFR Calc Glucose measurementOrdered B y: Jairon Medel on 02-28-2024 Glucose [Mass/Vol] 93 mg/dL 74-106 [facility] Hematocrit Auto (Bld) [Volum e fraction]Ordered By: Poojasreekanthmahadmakenzie Torojenifersophia on 02-28-2024 Hematocrit (Bld) [Volume fraction] 32.1 % Low 37-47 [facility] Hemoglobin measurementOrdere d By: Goldiemakenzie Torojenifersophia on 02-28-2024 Hemoglobin (Bld) [Mass/Vol] 9.9 g/dL Low 12.0-15.0 [facility] High density lipoprotein (HD L) measurementOrdered By: Poojasreekanthmahadmakenzie Torojenifersophia on 02-28-2024 Cholesterol in HDL [Mass/Vol] 58 mg/dL >40 [facility] Comment on above: The drugs N-Acetylcy steine and Metamizole may falsely depress this assay. Reference Range HDL <40 mg/dL Low HDL Cholesterol HDL >or= 60 mg/dL High HDL Cholesterol Immature granulocytes/100 WB C Auto (Bld)Ordered By: Poojamargarette Medel on 02-28-2024 Immature granulocytes/100 WBC (Bld) 0.300 % 0.0-0.9 [facility] Comment on above: IG% - Immature Granu locytes (promyelocytes, myelocytes and metamyelocytes) > 1% indicates that a LEFT SHIFT is Present. Laboratory - Chemistry and C hemistry - challengeOrdered By: Poojamargarette Medel on 02-28-2024 AST [Catalytic activity/Vol] 15 U/L 15-37 [facility] Low density lipoprotein (LDL ) cholesterol measurementOrdered By: Poojasreekanthmahadmakenzie Torojenifersophia on 02-28-2024 Cholesterol in LDL [Mass/Vol] 67 mg/dL 0-130 [facility] Lymphocytes Auto (Unsp spec) [#/Vol]Ordered By: Poojasreekanthmahadmakenzie Torojenifersophia on 02-28-2024 Lymphocytes (Bld) [#/Vol] 1.75 10*3/uL 0.83-4.51 [facility] Lymphocytes/100 WBC Auto (Un sp spec)Ordered By: Jairon Medel on 02-28-2024 Lymphocytes/100 WBC (Bld) 27.3 % 19-41 [facility] MCV (mean corpuscular volume ) determinationOrdered By: Jairon Medel on 02-28-2024 MCV (RBC) [Entitic vol] 89.4 fL 81-99 [facility] Mean corpuscular hemoglobin (MCH) determinationOrdered By: Jairon Medel on 02-28-2024 MCH (RBC) [Entitic mass] 27.6 pg 27.0-32.0 [facility] Mean corpuscular hemoglobin concentration (MCHC) determinationOrdered By: Jairon Medel on 02-28-2024 MCHC (RBC) [Mass/Vol] 30.8 g/dL Low 32-36 [facility] Mean platelet volume determi nationOrdered By: Jairon Medel on 02-28-2024 Platelet mean volume (Bld) [Entitic vol] 9.6 fL 6.2-12.0 [facility] Monocyte percentageOrdered B y: Jairon Medel on 02-28-2024 Monocytes/100 WBC (Bld) 8.7 % 0-10 [facility] Neutrophil percentageOrdered By: Jairon Medel on 02-28-2024 Neutrophils/100 WBC (Bld) 60.6 % 47-70 [facility] Nucleated red blood cell per centageOrdered By: Jairon Medel on 02-28-2024 Nucleated RBC/100 WBC (Bld) [Ratio] 0 % 0-5 [facility] Platelet countOrdered By: Pooja Medel on 02-28-2024 Platelets (Bld) [#/Vol] 261 10*3/uL 150-450 [facility] Potassium measurementOrdered By: Jairon Medel on 02-28-2024 Potassium [Moles/Vol] 4.1 mmol/L 3.5-5.1 [facility] RBC Auto (Bld) [#/Vol]Ordere d By: Jairon Medel on 02-28-2024 RBC (Bld) [#/Vol] 3.59 10*6/uL Low 4.2-5.4 [facility] Serum anion gap measurementO rdered By: Jairon Medel on 02-28-2024 Anion gap [Moles/Vol] 4 mmol/L Low 5-15 [facility] Serum globulin measurementOr dered By: Jairon Medel on 02-28-2024 Globulin (S) [Mass/Vol] 2.9 g/dL 2.2-4.2 [facility] Serum or plasma alanine crane otransferase (ALT) measurementOrdered By: Jairon Medel on 02-28-2024 ALT [Catalytic activity/Vol] 17 U/L 13-56 [facility] Serum or plasma albumin krissy urement (mass/volume)Ordered By: Jairon Medel on 02-28-2024 Albumin [Mass/Vol] 2.8 g/dL Low 3.2-5.0 [facility] Serum or plasma alkaline luis sphatase measurementOrdered By: Jairon Medel on 02-28-2024 ALP [Catalytic activity/Vol] 63 U/L 45-117 [facility] Serum or plasma calcium krissy urement (mass/volume)Ordered By: Jairon Medel on 02-28-2024 Calcium [Mass/Vol] 9.6 mg/dL 8.5-10.1 [facility] Serum or plasma cholesterol measurement (mass/volume)Ordered By: Jairon Medel on 02-28-2024 Cholesterol [Mass/Vol] 134 mg/dL <200 [facility] Comment on above: <200 mg/dL Desirable 200-240 mg/dL Borderline >240 mg/dL High Risk Serum or plasma creatinine m easurement (mass/volume)Ordered By: Jairon Medel on 02-28-2024 Creatinine [Mass/Vol] 0.95 mg/dL 0.55-1.02 [facility] Comment on above: The validity of the calculated GFR & GFRAA in patients over 70 years has not been determined. Clinical correlation is essential. Serum or plasma urea nitroge n measurement (mass/volume)Ordered By: Jairon Medel on 02-28-2024 Urea nitrogen [Mass/Vol] 23 mg/dL High 7-18 [facility] Sodium levelOrdered By: Carrillo Medel on 02-28-2024 Sodium [Moles/Vol] 143 mmol/L 136-145 [facility] Total proteinOrdered By: Masoud Medel on 02-28-2024 Protein [Mass/Vol] 5.7 g/dL Low 6.4-8.2 [facility] Triglycerides measurementOrd ered By: Jairon Medel on 02-28-2024 Triglyceride [Mass/Vol] 43 mg/dL <199 [facility] Comment on above: The drugs N-Acetylcy steine and Metamizole may falsely depress this assay.Serum Triglycerides Reference Interval Normal <150 mg/dL Borderline high 150 - 199 mg/dL High 200 - 499 mg/dL Very High > or = 500 mg/dL Valproate levelOrdered By: Sophia Medel on 02-28-2024 Valproic Acid (Depakene) Level 26 ug/mL Low 50-100 [facility] Very low density lipoprotein (VLDL) cholesterol measurementOrdered By: Jairon Medel on 02-28-2024 Very low density lipoprotein (VLDL) cholesterol measurement 9 mg/dL 5-40 [facility] VLDL Cholesterol 9 mg/dL 5-40 [facility] White blood cell (WBC) count Ordered By: Jairon Cortezdorcas on 02-28-2024 WBC (Bld) [#/Vol] 6.4 10*3/uL 4.4-11.0 [facility] .Auto Diffon 02-10-2024 Basophil, Absolute 0.1 10 3/mcL Normal 0.0-0.2 [facility] Comment on above: Performed By: #### B MP, MG, ANEU, ADIFF, CBC, GFR ####[address] [place], [place] [address] Basophils/100 WBC (Bld) 1.1 % Normal 0.0-2.5 [facility] Comment on above: Performed By: #### B MP, MG, ANEU, ADIFF, CBC, GFR ####[address] [place], [place] [address] Eosinophil, Absolute 0.1 10 3/mcL Normal 0.0-0.7 [facility] Comment on above: Performed By: #### B MP, MG, ANEU, ADIFF, CBC, GFR ####[facility] [place], [place] [address] Eosinophils/100 WBC (Bld) 1.8 % Normal 0.0-7.0 [facility] Comment on above: Performed By: #### B MP, MG, ANEU, ADIFF, CBC, GFR ####[address] [address] Lymphocyte, Absolute 1.4 10 3/mcL Normal 0.9-4.3 [facility] Comment on above: Performed By: #### B MP, MG, ANEU, ADIFF, CBC, GFR ####[address] [address] Lymphocytes/100 WBC (Bld) 25.4 % Normal 20.0-40.0 [facility] Comment on above: Performed By: #### B MP, MG, ANEU, ADIFF, CBC, GFR ####[address] [address] Monocyte, Absolute 0.4 10 3/mcL Normal 0.1-1.4 [facility] Comment on above: Performed By: #### B MP, MG, ANEU, ADIFF, CBC, GFR ####[address] [address] Monocytes/100 WBC (Bld) 7.4 % Normal 2.0-13.0 [facility] Comment on above: Performed By: #### B MP, MG, ANEU, ADIFF, CBC, GFR ####[address] [address] Neutrophils/100 WBC (Bld) 64.3 % Normal 50.0-75.0 [facility] Comment on above: Performed By: #### B MP, MG, ANEU, ADIFF, CBC, GFR ####[address] [address] .GFRon 02-10-2024 GFR 73 ml/min/1.73sqm Normal [facility] Comment on above: Result Comment: GFR [...] B MP, MG, ANEU, ADIFF, CBC, GFR ####[address] [address] [place], [place] [address] GFR Non- 60 ml/min/1.73sqm Normal [facility] Comment on above: Result Comment: GFR [...] MG, ANEU, ADIFF, CBC, GFR ####[facility] [place], [place] [address] .NEUABSon 02-10-2024 Neutrophil, Absolute 3.7 10 3/mcL Normal 2.3-8.1 [facility] Comment on above: Performed By: #### B MP, MG, ANEU, ADIFF, CBC, GFR ####[facility] [place], [place] [address] BMPon 02-10-2024 BUN/Creatinine Ratio 25 ratio Normal 7-27 [facility] Comment on above: Performed By: #### B MP, MG, ANEU, ADIFF, CBC, GFR ####[address] [place], [place] [address] Calcium [Mass/Vol] 10.0 mg/dL Normal 8.4-10.2 [facility] Comment on above: Performed By: #### B MP, MG, ANEU, ADIFF, CBC, GFR ####[address] [place] [id number] Chloride [Moles/Vol] 107 mmol/L Normal 98-107 [facility] Comment on above: Performed By: #### B MP, MG, ANEU, ADIFF, CBC, GFR ####[address] [place] [address] CO2 [Moles/Vol] 30 mmol/L Normal 23-31 [facility] Comment on above: Performed By: #### B MP, MG, ANEU, ADIFF, CBC, GFR ####[address] [place] [phone] Creatinine [Mass/Vol] 0.89 mg/dL Normal 0.55-1.02 [facility] Comment on above: Result Comment: Test ing performed on Siemens Dimension EXL analyzer using a modified kinetic Dora technique. Performed By: #### B MP, MG, ANEU, ADIFF, CBC, GFR ####[address] [address] Electrolyte Balance 8.0 mEq/L Normal 4.0-15.0 [facility] Comment on above: Performed By: #### B MP, MG, ANEU, ADIFF, CBC, GFR ####[address] [place] [phone] Glucose [Mass/Vol] 111 mg/dL High 83-110 [facility] Comment on above: Performed By: #### B MP, MG, ANEU, ADIFF, CBC, GFR ####[address] [place], [place] [address] Potassium [Moles/Vol] 4.0 mmol/L Normal 3.5-5.1 [facility] Comment on above: Performed By: #### B MP, MG, ANEU, ADIFF, CBC, GFR ####[address] [place], [place] [address] Sodium [Moles/Vol] 145 mmol/L Normal 136-145 [facility] Comment on above: Performed By: #### B MP, MG, ANEU, ADIFF, CBC, GFR ####[address] [place] [address] Urea nitrogen [Mass/Vol] 22 mg/dL High 7-18 [facility] Comment on above: Performed By: #### B MP, MG, ANEU, ADIFF, CBC, GFR ####[address] [address] CBCon 02-10-2024 Erythrocyte distribution width (RBC) [Ratio] 14.1 % Normal 11.5-15.5 [facility] Comment on above: Performed By: #### B MP, MG, ANEU, ADIFF, CBC, GFR ####[address] [place] [address] Hematocrit (Bld) [Volume fraction] 33.2 % Low 34.0-46.0 [facility] Comment on above: Performed By: #### B MP, MG, ANEU, ADIFF, CBC, GFR ####[address] [address] Hgb 11.3 G/dL Low 12.0-16.0 [facility] Comment on above: Performed By: #### B MP, MG, ANEU, ADIFF, CBC, GFR ####[address] [address] MCH (RBC) [Entitic mass] 28.8 pg Normal 27.0-33.0 [facility] Comment on above: Performed By: #### B MP, MG, ANEU, ADIFF, CBC, GFR ####[address] [place], [place] [address] MCHC 34.1 G/dL Normal 32.0-36.0 [facility] Comment on above: Performed By: #### B MP, MG, ANEU, ADIFF, CBC, GFR ####[address] [place], [place] [address] MCV (RBC) [Entitic vol] 84.5 fL Normal 80.0-99.0 A [facility] Comment on above: Performed By: #### B MP, MG, ANEU, ADIFF, CBC, GFR ####[address] [place], [place] [address] Platelet 272 10 3/mcL Normal 150-450 [facility] Comment on above: Performed By: #### B MP, MG, ANEU, ADIFF, CBC, GFR ####[address] [place], [place] [address] Platelet mean volume (Bld) [Entitic vol] 7.7 fL Normal 6.6-10.5 [facility] Comment on above: Performed By: #### B MP, MG, ANEU, ADIFF, CBC, GFR ####[address] [place], [place] [address] RBC 3.93 10 6/mcL Low 4.10-5.30 [facility] Comment on above: Performed By: #### B MP, MG, ANEU, ADIFF, CBC, GFR ####[address] [place], [place] [address] WBC 5.7 10 3/mcL Normal 4.5-10.8 [facility] Comment on above: Performed By: #### B MP, MG, ANEU, ADIFF, CBC, GFR ####[address] [place], [place] [address] LABORATORYOrdered By: SYSTEM SYSTEM on 02-10-2024 Basophils [...] 02-10-2024 Magnesium [Mass/Vol] 1.7 mg/dL Low 1.8-2.4 [facility] Comment on above: Performed By: #### B MP, MG, ANEU, ADIFF, CBC, GFR ####[address] [place], [place] [address] .Auto Diffon 02-09-2024 Basophil, Absolute 0.1 10 3/mcL Normal 0.0-0.2 [facility] Comment on above: Performed By: #### B JEISON, MDW, GFR, ANEU, TROPHS, PBNP, CBC, ADIFF ####[address] [place], [place] [address] Basophils/100 WBC (Bld) 1.1 % Normal 0.0-2.5 [facility] Comment on above: Performed By: #### B MP, MDW, GFR, ANEU, TROPHS, PBNP, CBC, ADIFF ####[address] [place], [place] [address] Eosinophil, Absolute 0.1 10 3/mcL Normal 0.0-0.7 [facility] Comment on above: Performed By: #### B MP, MDW, GFR, ANEU, TROPHS, PBNP, CBC, ADIFF ####[address] [place], [place] [address] Eosinophils/100 WBC (Bld) 1.6 % Normal 0.0-7.0 [facility] Comment on above: Performed By: #### B NAFISA MCHUGH, GFR, ANEU, TROPHS, PBNP, CBC, ADIFF ####[address] [place], [place] [address] Lymphocyte, Absolute 2.2 10 3/mcL Normal 0.9-4.3 [facility] Comment on above: Performed By: #### B JEISON, NAFISA, GFR, ANEU, TROPHS, PBNP, CBC, ADIFF ####[facility] [place], [place] [address] Lymphocytes/100 WBC (Bld) 29.4 % Normal 20.0-40.0 [facility] Comment on above: Performed By: #### B JEISON, NAFISA, GFR, ANEU, TROPHS, PBNP, CBC, ADIFF ####[address] [place], [place] [address] Monocyte, Absolute 0.7 10 3/mcL Normal 0.1-1.4 [facility] Comment on above: Performed By: #### B NAFISA MCHUGH, GFR, ANEU, TROPHS, PBNP, CBC, ADIFF ####[address] [address] Monocytes/100 WBC (Bld) 9.6 % Normal 2.0-13.0 [facility] Comment on above: Performed By: #### B NAFISA MCHUGH, GFR, ANEU, TROPHS, PBNP, CBC, ADIFF ####[address] [place], [place] [address] Neutrophils/100 WBC (Bld) 58.3 % Normal 50.0-75.0 [facility] Comment on above: Performed By: #### B NAFISA MCHUGH, GFR, ANEU, TROPHS, PBNP, CBC, ADIFF ####[facility] [place], [place] [address] .GFRon 02-09-2024 GFR 67 ml/min/1.73sqm Normal [facility] Comment on above: Result Comment: GFR [...] ANEU, TROPHS, PBNP, CBC, ADIFF ####[address] [place], [place] [address] GFR Non- 55 ml/min/1.73sqm Normal [facility] Comment on above: Result Comment: GFR [...] ANEU, TROPHS, PBNP, CBC, ADIFF ####[address] [place], [place] [address] .MDWon 02-09-2024 Monocyte Distribution Width 17.09 Normal 0.00-20.00 [facility] Comment on above: Result Comment: For ED adult patients suspected of sepsis, MDW<=20.0 does not rule out sepsis or risk of sepsis Performed By: #### B MP, MDW, GFR, ANEU, TROPHS, PBNP, CBC, ADIFF ####[address] [place], [place] [address] .NEUABSon 02-09-2024 Neutrophil, Absolute 4.4 10 3/mcL Normal 2.3-8.1 [facility] Comment on above: Performed By: #### B NAFISA MCHUGH, GFR, ANEU, TROPHS, PBNP, CBC, ADIFF ####[address] [place], [place] [address] BMPon 02-09-2024 BUN/Creatinine Ratio 26 ratio Normal 7-27 [facility] Comment on above: Performed By: #### B NAFISA MCHUGH, GFR, ANEU, TROPHS, PBNP, CBC, ADIFF ####[place] [address] [place] [address] Calcium [Mass/Vol] 10.4 mg/dL High 8.4-10.2 [facility] Comment on above: Performed By: #### B NAFISA MCHUGH, GFR, ANEU, TROPHS, PBNP, CBC, ADIFF ####[place] [address] [place] [phone] Chloride [Moles/Vol] 104 mmol/L Normal 98-107 [facility] Comment on above: Performed By: #### B NAFISA MCHUGH, GFR, ANEU, TROPHS, PBNP, CBC, ADIFF ####[place] [address] [place] [address] CO2 [Moles/Vol] 30 mmol/L Normal 23-31 [facility] Comment on above: Performed By: #### B NAFISA MCHUGH, GFR, ANEU, TROPHS, PBNP, CBC, ADIFF ####[address] [place] [phone] Creatinine [Mass/Vol] 0.96 mg/dL Normal 0.55-1.02 [facility] Comment on above: Result Comment: Test ing performed on Astech Dimension EXL analyzer using a modified kinetic Dora technique. Performed By: #### B NAFISA MCHUGH, GFR, ANEU, TROPHS, PBNP, CBC, ADIFF ####[facility] [place] [phone] Electrolyte Balance 10.0 mEq/L Normal 4.0-15.0 [facility] Comment on above: Performed By: #### B JEISON, NAFISA, GFR, ANEU, TROPHS, PBNP, CBC, ADIFF ####[address] [place], [place] [address] Glucose [Mass/Vol] 108 mg/dL Normal 83-110 [facility] Comment on above: Performed By: #### B NAFISA MCHUGH, GFR, ANEU, TROPHS, PBNP, CBC, ADIFF ####[address] [place], [place] [address] Potassium [Moles/Vol] 3.6 mmol/L Normal 3.5-5.1 [facility] Comment on above: Performed By: #### B NAFISA MCHUGH, GFR, ANEU, TROPHS, PBNP, CBC, ADIFF ####[address] [place], [place] [address] Sodium [Moles/Vol] 144 mmol/L Normal 136-145 [facility] Comment on above: Performed By: #### B NAFISA MCHUGH, GFR, ANEU, TROPHS, PBNP, CBC, ADIFF ####[address] [place], [place] [address] Urea nitrogen [Mass/Vol] 25 mg/dL High 7-18 [facility] Comment on above: Performed By: #### B NAFISA MCHUGH, GFR, ANEU, TROPHS, PBNP, CBC, ADIFF ####[address] [place], [place] [address] CBCon 02-09-2024 Erythrocyte distribution width (RBC) [Ratio] 14.0 % Normal 11.5-15.5 [facility] Comment on above: Performed By: #### B NAFISA MCHUGH, GFR, ANEU, TROPHS, PBNP, CBC, ADIFF ####[address] [place], [place] [address] Hematocrit (Bld) [Volume fraction] 34.7 % Normal 34.0-46.0 [facility] Comment on above: Performed By: #### B NAFISA MCHUGH, GFR, ANEU, TROPHS, PBNP, CBC, ADIFF ####[address] [place], [place] [address] Hgb 11.7 G/dL Low 12.0-16.0 [facility] Comment on above: Performed By: #### B JEISON, NAFISA, GFR, ANEU, TROPHS, PBNP, CBC, ADIFF ####[address] [place], [place] [address] MCH (RBC) [Entitic mass] 28.7 pg Normal 27.0-33.0 [facility] Comment on above: Performed By: #### B JEISON, NAFISA, GFR, ANEU, TROPHS, PBNP, CBC, ADIFF ####[address] [place], [place] [address] MCHC 33.7 G/dL Normal 32.0-36.0 [facility] Comment on above: Performed By: #### B JEISON, NAFISA, GFR, ANEU, TROPHS, PBNP, CBC, ADIFF ####[address] [place], [place] [address] MCV (RBC) [Entitic vol] 85.0 fL Normal 80.0-99.0 [facility] Comment on above: Performed By: #### B NAFISA MCHUGH, GFR, ANEU, TROPHS, PBNP, CBC, ADIFF ####[address] [place], [place] [address] Platelet 266 10 3/mcL Normal 150-450 [facility] Comment on above: Performed By: #### B NAFISA MCHUGH, GFR, ANEU, TROPHS, PBNP, CBC, ADIFF ####[address] [place], [place] [address] Platelet mean volume (Bld) [Entitic vol] 7.4 fL Normal 6.6-10.5 [facility] Comment on above: Performed By: #### B NAFISA MCHUGH, GFR, ANEU, TROPHS, PBNP, CBC, ADIFF ####[address] [place], [place] [address] RBC 4.08 10 6/mcL Low 4.10-5.30 [facility] Comment on above: Performed By: #### B NAIFSA MCHUGH, GFR, ANEU, TROPHS, PBNP, CBC, ADIFF ####[address] [place], [place] [address] WBC 7.6 10 3/mcL Normal 4.5-10.8 [facility] Comment on above: Performed By: #### B NAFISA MCHUGH, GFR, ANEU, TROPHS, PBNP, CBC, ADIFF ####[address] [place], [place] [address] LABORATORYOrdered By: Addis Pelayo on 02-09-2024 Appearance [...] ng/L Male: 0-76 ng/L Testing performed on [employer] using a homogeneous sandwich chemiluminescent immunoassay based on WineMeNow technology. Urea nitrogen [Mass/Vol] 25 mg/dL High 7 - 18 mg/dL AO ADM SS Urea nitrogen/Creatinine [Mass ratio] 26 ratio Normal 7 - 27 ratio AO ADM SS WBC (Bld) [#/Vol] 7.6 103/mcL Normal 4.5 - 10.8 10^3/mcL AO Workflow SS PBNPon 02-09-2024 Natriuretic peptide B (Bld) [Mass/Vol] 3243 pg/mL High 0-450 [facility] Comment on above: Result Comment: NT-p roBNP results of less than 300 pg/mL effectively rules out acute congestive heart failure with 99% negative predictive value. Performed By: #### B MP, MDW, GFR, ANEU, TROPHS, PBNP, CBC, ADIFF ####[place] [address] TROPHSon 02-09-2024 High Sensitivity Troponin I 23 ng/L Normal 0-51 [facility] Comment on above: Result Comment: High Sensitive Troponin I Reference Ranges: Female: 0-51 ng/L Male: 0-76 ng/L Testing performed on [employer] using a homogeneous sandwich chemiluminescent immunoassay based on WineMeNow technology. Performed By: #### B MP, MDW, GFR, ANEU, TROPHS, PBNP, CBC, ADIFF ####[address] [place] [phone] UAon 02-09-2024 Color (U) Yellow Normal [facility] Comment on above: Performed By: #### U A ####[address] [place] [address] Glucose (U) [Mass/Vol] Negative Normal Negative [facility] Comment on above: Performed By: #### U A ####[address] [place] [address] Ketones Ql (U) Negative Normal Negative [facility] Comment on above: Performed By: #### U A ####[address] [place] [address] UA Appear Clear Normal Clear [facility] Comment on above: Performed By: #### U A ####[address] [place] [address] UA Blood Negative Normal Negative [facility] Comment on above: Performed By: #### U A ####[address] [place] [address] UA Leuk Est Negative Normal Negative [facility] Comment on above: Performed By: #### U A ####[address] [place] [address] UA Nitrite Negative Normal Negative [facility] Comment on above: Performed By: #### U A ####[address] [place] [address] UA pH 6.5 Normal 5.0 - 8.0 [facility] Comment on above: Performed By: #### U A ####[address] [address] UA Protein Negative Normal Negative [facility] Comment on above: Performed By: #### U A ####[address] [place], [place] [address] UA Spec Grav 1.015 Normal 1.015-1.025 [facility] Comment on above: Performed By: #### U A ####[address] [place] [address] UA Specimen Type Void Normal [facility] Comment on above: Performed By: #### U A ####[facility] [place] [address] UA Urobilinogen 0.2 E.U./dL Normal 0.2-1.0 [facility] Comment on above: Performed By: #### U A ####[facility] [place] [address] Urobilinogen (U) [Mass/Vol] Negative Normal Negative [facility] Comment on above: Performed By: #### U A ####[facility] [place] [address] VALPRon 02-09-2024 LDose Valproic Acid: Unknown Normal [facility] Comment on above: Performed By: #### V ALPR ####[facility] [place] [address] Valproic Acid Lvl 30 mcg/mL Low 50-100 [facility] Comment on above: Performed By: #### V ALPR ####[facility] [id number] XR CHEST 1 VIEWon 02-09-2024 XR CHEST [...] 9:08:10 PM Ordering Provider: TRIXIE BARONE Normal [facility] .Urinalysis Microscopic (AO) on 01-21-2024 UA Amorphus 1+ /hpf Normal [facility] Comment on above: Performed By: #### U A, [place] ####[place] [address] UA CA Ox Crystal 1+ /hpf Normal [facility] Comment on above: Performed By: #### U A, [place]O ####[place] [address] UA Mucous 2+ /hpf Normal [facility] Comment on above: Performed By: #### U A, [place] ####[place] [address] UA RBC 0-5 Abnormal None Seen [facility] Comment on above: Performed By: #### U A, [place]O ####[place] [address] UA Squam Epithelial 0-5 Abnormal None [facility] [facility] Comment on above: Performed By: #### U A, UAMICAO ####[place] [address] UA WBC 0-5 Abnormal None Seen [facility] Comment on above: Performed By: #### U A, UAMICAO ####[place] [address] LABORATORYOrdered By: Mao Nava on 01-21-2024 Appearance [...] SS UAon 01-21-2024 Color (U) Yellow Normal [facility] Comment on above: Performed By: #### U A, UAMICAO ####[facility] [place], [place] [address] Glucose (U) [Mass/Vol] Negative Normal Negative [facility] Comment on above: Performed By: #### U A, UAMICAO ####[address] [place], [place] [address] Ketones Ql (U) Negative Normal Negative [facility] Comment on above: Performed By: #### U A, UAMICAO ####[address] [place] [address] UA Appear Clear Normal Clear [facility] Comment on above: Performed By: #### U A, UAMICAO ####[address] [place] [address] UA Blood Negative Normal Negative [facility] Comment on above: Performed By: #### U A, UAMICAO ####[address] [place] [address] UA Leuk Est Negative Normal Negative [facility] Comment on above: Performed By: #### U A, UAMICAO ####[address] [place] [address] UA Nitrite Negative Normal Negative [facility] Comment on above: Performed By: #### U A, UAMICAO ####[address] [place] [address] UA pH 6.0 Normal 5.0 - 8.0 [facility] Comment on above: Performed By: #### U A, UAMICAO ####[address] [place] [address] UA Protein 30 mg/dL Normal Negative [facility] Comment on above: Performed By: #### U A, UAMICAO ####[address] [place] [address] UA Spec Grav 1.020 Normal 1.015-1.025 [facility] Comment on above: Performed By: #### U A, UAMICAO ####[address] [place] [address] UA Specimen Type Hua Catheter Normal [facility] Comment on above: Performed By: #### U A, UAMICAO ####[address] [place] [address] UA Urobilinogen 0.2 E.U./dL Normal 0.2-1.0 [facility] Comment on above: Performed By: #### U A, UAMICAO ####[place] [id number] Urobilinogen (U) [Mass/Vol] Negative Normal Negative [facility] Comment on above: Performed By: #### U KRISHNA Jeter ####[facility] [place], [place] [address] US BLADDERon 01-07-2024 US BLADDER ORIGINAL EXAMINATION: [...] 01/07/2024 11:24:46 AM Ordering Provider: LARRY Geronimo [facility] .GFRon 12-29-2023 GFR 54 ml/min/1.73sqm [facility] Comment on above: Result Comment: GFR Population [...] Performed By: #### G LINDA SPAULDING CAION ####[address] [place], [place] [address] GFR Non- 44 ml/min/1.73sqm [facility] Comment on above: Result Comment: GFR Population [...] By: #### LINDA SOLIS CAION ####[address] [place], [place] [address] BMPon 12-29-2023 BUN/Creatinine Ratio 20 ratio Normal 7-27 [facility] Comment on above: Performed By: #### LINDA SOLIS CAION ####[address] [place], [place] [address] Calcium [Mass/Vol] 10.3 mg/dL High 8.4-10.2 [facility] Comment on above: Performed By: #### LINDA SOLIS CAION ####[address] [place], [place] [address] Chloride [Moles/Vol] 104 mmol/L Normal 98-107 [facility] Comment on above: Performed By: #### LINDA SOLIS CAION ####[address] [place], [place] [address] CO2 [Moles/Vol] 31 mmol/L Normal 23-31 [facility] Comment on above: Performed By: #### LINDA SOLIS CAION ####[address] [place], [place] [address] Creatinine [Mass/Vol] 1.16 mg/dL High 0.55-1.02 [facility] Comment on above: Result Comment: Test ing performed on Siemens Dimension EXL analyzer using a modified kinetic Dora technique. Performed By: #### LINDA SOLIS CAION ####[address] [place], [place] [address] Electrolyte Balance 7.0 mEq/L Normal 4.0-15.0 [facility] Comment on above: Performed By: #### LINDA SOLIS CAION ####[address] [place], [place] [address] Glucose [Mass/Vol] 92 mg/dL Normal 83-110 [facility] Comment on above: Performed By: #### LINDA SOLIS CAION ####[address] [place], [place] [address] Potassium [Moles/Vol] 4.2 mmol/L Normal 3.5-5.1 [facility] Comment on above: Performed By: #### LINDA SOLIS CAION ####[address] [place], [place] [address] Sodium [Moles/Vol] 142 mmol/L Normal 136-145 [facility] Comment on above: Performed By: #### LINDA SOLIS CAION ####[address] [place], [place] [address] Urea nitrogen [Mass/Vol] 23 mg/dL High 7-18 [facility] Comment on above: Performed By: #### LINDA SOLIS CAION ####[address] [place], [place] [address] CAIONon 12-29-2023 Calcium Ionized 1.27 mmol/L Normal 1.12-1.32 [facility] Comment on above: Performed By: #### LINDA SOLIS CAION ####[address] [place], [place] [address] LABORATORYOrdered By: SYSTEM SYSTEM on 12-29-2023 Calcium [...] 12/21/2023 4:21:17 PM Ordering Provider: LARRY Geronimo [facility] XR SPINE LUMBAR W/OBLIQUES 4 VIEWSon [...] 12/21/2023 4:34:05 PM Ordering Provider: LARRY Geronimo [facility] B12on 12-16-2023 Cobalamin (Vitamin B12) [Mass/Vol] 509 pg/mL Normal 211-911 [facility] Comment on above: Performed By: #### F ES, FERR ####[place] [address]#### B12, FOL ####[place] [address] FOLon 12-16-2023 Folate >48.00 High 5.38-24.00 [facility] Comment on above: Performed By: #### F ES, FERR ####[place] [address]#### B12, FOL ####[place] [address] .Auto Diffon 12-15-2023 Basophil, Absolute 0.1 10 3/mcL Normal 0.0-0.2 [facility] Comment on above: Performed By: #### C MP, ADIFF, CBC, GFR, PBNP, ANEU #### [address] [address] Basophils/100 WBC (Bld) 1.1 % Normal 0.0-2.5 [facility] Comment on above: Performed By: #### C MP, ADIFF, CBC, GFR, PBNP, ANEU #### [address] [address] Eosinophil, Absolute 0.1 10 3/mcL Normal 0.0-0.7 [facility] Comment on above: Performed By: #### C MP, ADIFF, CBC, GFR, PBNP, ANEU #### [address] [address] Eosinophils/100 WBC (Bld) 1.4 % Normal 0.0-7.0 [facility] Comment on above: Performed By: #### C MP, ADIFF, CBC, GFR, PBNP, ANEU #### [address] [address] Lymphocyte, Absolute 1.7 10 3/mcL Normal 0.9-4.3 [facility] Comment on above: Performed By: #### C MP, ADIFF, CBC, GFR, PBNP, ANEU #### [address] [address] Lymphocytes/100 WBC (Bld) 20.9 % Normal 20.0-40.0 [facility] Comment on above: Performed By: #### C MP, ADIFF, CBC, GFR, PBNP, ANEU #### [address] [address] Monocyte, Absolute 0.5 10 3/mcL Normal 0.1-1.4 [facility] Comment on above: Performed By: #### C MP, ADIFF, CBC, GFR, PBNP, ANEU #### [address] [address] Monocytes/100 WBC (Bld) 6.0 % Normal 2.0-13.0 [facility] Comment on above: Performed By: #### C MP, ADIFF, CBC, GFR, PBNP, ANEU #### [address] [address] Neutrophils/100 WBC (Bld) 70.6 % Normal 50.0-75.0 [facility] Comment on above: Performed By: #### C MP, ADIFF, CBC, GFR, PBNP, ANEU #### [address] [address] .GFRon 12-15-2023 GFR 62 ml/min/1.73sqm Normal [facility] Comment on above: Result Comment: GFR [...] MP, ADIFF, CBC, GFR, PBNP, ANEU #### [address] [address] GFR Non- 52 ml/min/1.73sqm Normal [facility] Comment on above: Result Comment: GFR [...] MP, ADIFF, CBC, GFR, PBNP, ANEU #### [address] [address] .NEUABSon 12-15-2023 Neutrophil, Absolute 5.8 10 3/mcL Normal 2.3-8.1 [facility] Comment on above: Performed By: #### C MP, ADIFF, CBC, GFR, PBNP, ANEU #### [address] [address] CBCon 12-15-2023 Erythrocyte distribution width (RBC) [Ratio] 14.2 % Normal 11.5-15.5 [facility] Comment on above: Performed By: #### C MP, ADIFF, CBC, GFR, PBNP, ANEU #### [address] [address] Hematocrit (Bld) [Volume fraction] 34.6 % Normal 34.0-46.0 [facility] Comment on above: Performed By: #### C MP, ADIFF, CBC, GFR, PBNP, ANEU #### [address] [address] Hgb 11.7 G/dL Low 12.0-16.0 [facility] Comment on above: Performed By: #### C MP, ADIFF, CBC, GFR, PBNP, ANEU #### [address] [address] MCH (RBC) [Entitic mass] 28.7 pg Normal 27.0-33.0 [facility] Comment on above: Performed By: #### C MP, ADIFF, CBC, GFR, PBNP, ANEU #### [address] [address] MCHC 33.9 G/dL Normal 32.0-36.0 [facility] Comment on above: Performed By: #### C MP, ADIFF, CBC, GFR, PBNP, ANEU #### [address] [address] MCV (RBC) [Entitic vol] 84.8 fL Normal 80.0-99.0 [facility] Comment on above: Performed By: #### C MP, ADIFF, CBC, GFR, PBNP, ANEU #### [address] [address] Platelet 363 10 3/mcL Normal 150-450 [facility] Comment on above: Performed By: #### C MP, ADIFF, CBC, GFR, PBNP, ANEU #### [address] [address] Platelet mean volume (Bld) [Entitic vol] 7.4 fL Normal 6.6-10.5 [facility] Comment on above: Performed By: #### C MP, ADIFF, CBC, GFR, PBNP, ANEU #### [address] [address] RBC 4.08 10 6/mcL Low 4.10-5.30 [facility] Comment on above: Performed By: #### C MP, ADIFF, CBC, GFR, PBNP, ANEU #### [address] [address] WBC 8.3 10 3/mcL Normal 4.5-10.8 [facility] Comment on above: Performed By: #### C MP, ADIFF, CBC, GFR, PBNP, ANEU #### [address] [address] CMPon 12-15-2023 Albumin Level 3.9 G/dL Normal 3.4-4.8 [facility] Comment on above: Performed By: #### C MP, ADIFF, CBC, GFR, PBNP, ANEU #### [address] [address] Albumin/Globulin [Mass ratio] 1.4 {ratio} Normal 1.1-2.5 [facility] Comment on above: Performed By: #### C MP, ADIFF, CBC, GFR, PBNP, ANEU #### [address] [address] ALP [Catalytic activity/Vol] 72 U/L Normal 40-135 [facility] Comment on above: Performed By: #### C MP, ADIFF, CBC, GFR, PBNP, ANEU #### [address] [address] ALT [Catalytic activity/Vol] 26 U/L Normal 14-59 [facility] Comment on above: Performed By: #### C MP, ADIFF, CBC, GFR, PBNP, ANEU #### [address] [address] AST [Catalytic activity/Vol] 18 U/L Normal 10-40 [facility] Comment on above: Performed By: #### C MP, ADIFF, CBC, GFR, PBNP, ANEU #### [address] [address] Bili Total 0.4 mg/dL Normal 0.2-1.0 [facility] Comment on above: Result Comment: Use of this assay is not recommended for patients undergoing treatment with eltrombopag due to the potential for falsely elevated results. Performed By: #### C MP, ADIFF, CBC, GFR, PBNP, ANEU #### [address] [address] BUN/Creatinine Ratio 20 ratio Normal 7-27 [facility] Comment on above: Performed By: #### C MP, ADIFF, CBC, GFR, PBNP, ANEU #### [address] [address] Calcium [Mass/Vol] 10.8 mg/dL High 8.4-10.2 [facility] Comment on above: Performed By: #### C MP, ADIFF, CBC, GFR, PBNP, ANEU #### [address] [address] Chloride [Moles/Vol] 104 mmol/L Normal 98-107 [facility] Comment on above: Performed By: #### C MP, ADIFF, CBC, GFR, PBNP, ANEU #### [address] [address] CO2 [Moles/Vol] 30 mmol/L Normal 23-31 [facility] Comment on above: Performed By: #### C MP, ADIFF, CBC, GFR, PBNP, ANEU #### [address] [address] Creatinine [Mass/Vol] 1.02 mg/dL Normal 0.55-1.02 [facility] Comment on above: Result Comment: Test ing performed on Astech Dimension EXL analyzer using a modified kinetic Dora technique. Performed By: #### C MP, ADIFF, CBC, GFR, PBNP, ANEU #### [address] [address] Electrolyte Balance 7.0 mEq/L Normal 4.0-15.0 [facility] Comment on above: Performed By: #### C MP, ADIFF, CBC, GFR, PBNP, ANEU #### [address] [address] Globulin 2.8 G/dL Normal [facility] Comment on above: Performed By: #### C MP, ADIFF, CBC, GFR, PBNP, ANEU #### [address] [address] Glucose [Mass/Vol] 105 mg/dL Normal 83-110 [facility] Comment on above: Performed By: #### C MP, ADIFF, CBC, GFR, PBNP, ANEU #### [address] [address] Potassium [Moles/Vol] 4.2 mmol/L Normal 3.5-5.1 [facility] Comment on above: Performed By: #### C MP, ADIFF, CBC, GFR, PBNP, ANEU #### [address] [address] Sodium [Moles/Vol] 141 mmol/L Normal 136-145 [facility] Comment on above: Performed By: #### C MP, ADIFF, CBC, GFR, PBNP, ANEU #### [address] [address] Total Protein 6.7 G/dL Normal 6.4-8.2 [facility] Comment on above: Performed By: #### C MP, ADIFF, CBC, GFR, PBNP, ANEU #### [address] [address] Urea nitrogen [Mass/Vol] 20 mg/dL High 7-18 [facility] Comment on above: Performed By: #### C MP, ADIFF, CBC, GFR, PBNP, ANEU #### [address] [address] Lucretia 12-15-2023 Ferritin [Mass/Vol] 197.0 ng/mL Normal 8.0-252.0 [facility] Comment on above: Performed By: #### F ES, FERR ####[facility] [place], [place] [address]#### B12, FOL ####[place] [address] FESon 12-15-2023 Iron [Mass/Vol] 44 ug/dL Low 50-170 [facility] Comment on above: Performed By: #### F ES, FERR ####[address] [address]#### B12, FOL ####[place] [address] Iron Sat 15 % Normal [facility] Comment on above: Performed By: #### F ES, FERR ####[address] [address]#### B12, FOL ####[place] [address] TIBC 300 mcg/dL Normal 250-450 [facility] Comment on above: Performed By: #### F ES, FERR ####[address] [address]#### B12, FOL ####[place] [address] LABORATORYOrdered By: SYSTEM SYSTEM on 12-15-2023 Albumin [...] above: Interpretive Data: T esting performed on Astech Dimension EXL analyzer using a modified kinetic [...] Culture Urine No growth at 48 hours. [facility] PBNPon 12-15-2023 Natriuretic peptide B (Bld) [Mass/Vol] 1968 pg/mL High 0-450 [facility] Comment on above: Result Comment: NT-p roBNP results of less than 300 pg/mL effectively rules out acute congestive heart failure with 99% negative predictive value. Performed By: #### C MP, ADIFF, CBC, GFR, PBNP, ANEU ####[address] [place], [place] [address] LABORATORYOrdered By: Domingo Masterson on 12-09-2023 Appearance [...] SS UAon 12-09-2023 Color (U) Yellow Normal [facility] Comment on above: Performed By: #### U A ####[address] [place], [place] [address] Glucose (U) [Mass/Vol] Negative Normal Negative [facility] Comment on above: Performed By: #### U A ####[address] [place], [place] [address] Ketones Ql (U) Negative Normal Negative [facility] Comment on above: Performed By: #### U A ####[address] [place], [place] [address] UA Appear Clear Normal Clear [facility] Comment on above: Performed By: #### U A ####[address] [place], [place] [address] UA Blood Negative Normal Negative [facility] Comment on above: Performed By: #### U A ####[address] [place] [address] UA Leuk Est Negative Normal Negative [facility] Comment on above: Performed By: #### U A ####[address] [place] [address] UA Nitrite Negative Normal Negative [facility] Comment on above: Performed By: #### U A ####[address] [place] [address] UA pH 7.5 Normal 5.0 - 8.0 [facility] Comment on above: Performed By: #### U A ####[address] [place] [address] UA Protein Negative Normal Negative [facility] Comment on above: Performed By: #### U A ####[address] [place] [address] UA Spec Grav 1.020 Normal 1.015-1.025 [facility] Comment on above: Performed By: #### U A ####[address] [address] UA Specimen Type Clean Catch Normal [facility] Comment on above: Performed By: #### U A ####[address] [place] [address] UA Urobilinogen 0.2 E.U./dL Normal 0.2-1.0 [facility] Comment on above: Performed By: #### U A ####[address] [place] [address] Urobilinogen (U) [Mass/Vol] Negative Normal Negative [facility] Comment on above: Performed By: #### U A ####[address] [place] [address] XR HIP RIGHT W/PELVIS 4 VIEW Son [...] 11/29/2023 11:51:51 AM Ordering Provider: SONNY Geronimo [facility] .GFRon 07-08-2023 GFR 63 ml/min/1.73sqm Normal [facility] ([place]) Comment on above: Result Comment: GFR Population [...] FR, A1C, ANEU, CBC, ADIFF, BMP #### [address] [address] GFR Non- 52 ml/min/1.73sqm Normal [facility] ([place]) Comment on above: Result Comment: GFR [...] FR, A1C, ANEU, CBC, ADIFF, BMP #### [address] [address] BMPon 07-08-2023 BUN/Creatinine Ratio 19 ratio Normal 7-27 [facility] ([place]) Comment on above: Performed By: #### G FR, A1C, ANEU, CBC, ADIFF, BMP #### [address] [address] Calcium [Mass/Vol] 9.6 mg/dL Normal 8.4-10.2 [facility] ([place]) Comment on above: Performed By: #### G FR, A1C, ANEU, CBC, ADIFF, BMP #### [address] [address] Chloride [Moles/Vol] 106 mmol/L Normal 98-107 [facility] ([place]) Comment on above: Performed By: #### G FR, A1C, ANEU, CBC, ADIFF, BMP #### [address] [address] CO2 [Moles/Vol] 29 mmol/L Normal 23-31 [facility] ([place]) Comment on above: Performed By: #### G FR, A1C, ANEU, CBC, ADIFF, BMP #### [address] [address] Creatinine [Mass/Vol] 1.02 mg/dL Normal 0.55-1.02 [facility] ([place]) Comment on above: Performed By: #### G FR, A1C, ANEU, CBC, ADIFF, BMP #### [address] [address] Electrolyte Balance 9.0 mEq/L Normal 4.0-15.0 [facility] ([place]) Comment on above: Performed By: #### G FR, A1C, ANEU, CBC, ADIFF, BMP #### [address] [address] Glucose [Mass/Vol] 118 mg/dL High 83-110 [facility] ([place]) Comment on above: Performed By: #### G FR, A1C, ANEU, CBC, ADIFF, BMP #### [place] [address] [place], [place] [address] Potassium [Moles/Vol] 3.7 mmol/L Normal 3.5-5.1 [facility] ([place]) Comment on above: Performed By: #### G FR, A1C, ANEU, CBC, ADIFF, BMP #### [place] [address] [place], [place] [address] Sodium [Moles/Vol] 144 mmol/L Normal 136-145 [facility] ([place]) Comment on above: Performed By: #### G FR, A1C, ANEU, CBC, ADIFF, BMP #### [place] [address] [place], [place] [address] Urea nitrogen [Mass/Vol] 19 mg/dL High 7-18 [facility] ([place]) Comment on above: Performed By: #### G FR, A1C, ANEU, CBC, ADIFF, BMP #### [address] [address] LABORATORYOrdered By: SYSTEM SYSTEM on 07-08-2023 Calcium [...] AM Ordering Provider: MAHAD Geronimo [facility]) METon 04-14-2023 Methylmalonic Acid 340 nmol/L Normal 0-378 [facility]) Comment on above: Result Comment: This test was developed and its performance characteristics determined by [facility]. It has not been cleared or approved by the Food and Drug Administration. Performed At: [address] [id number] Hima Lieberman MD Ph:[phone] Performed By: #### G FR, A1C, ANEU, CBC, ADIFF, BMP #### [address] [address] B12on 04-07-2023 Cobalamin (Vitamin B12) [Mass/Vol] 600 pg/mL Normal 211-911 [facility]) Comment on above: Performed By: #### F OL, B12 #### [facility] [address] [place] [address] #### FT4, [id number], TSH #### [address] [address] FOLon 04-07-2023 Folate >48.00 High 5.38-24.00 [facility] ([place]) Comment on above: Performed By: #### F OL, B12 #### [place] [address] #### FT4, [id number], TSH #### [address] [address] FT4on 04-07-2023 Free T4 [Mass/Vol] 0.99 ng/dL Normal 0.76-1.46 [facility] ([place]) Comment on above: Performed By: #### F OL, B12 #### [place] [address] #### FT4, [id number], TSH #### [place] [id number] LABORATORYOrdered By: SYSTEM SYSTEM on 04-07-2023 Cobalamin [...] Qn 1.65 m[IU]/L Normal 0.36-3.74 [facility] ([place]) Comment on above: Performed By: #### F OL, B12 #### [place] [address] #### FT4, [id number], TSH #### [address] [address] .Auto Diffon 03-10-2023 Basophil, Absolute 0.1 10 3/mcL Normal 0.0-0.2 [facility] ([place]) Comment on above: Performed By: #### G FR, A1C, ANEU, CBC, ADIFF, BMP #### [address] [address] Basophils/100 WBC (Bld) 1.2 % Normal 0.0-2.5 [facility] ([place]) Comment on above: Performed By: #### G FR, A1C, ANEU, CBC, ADIFF, BMP #### [address] [address] Eosinophil, Absolute 0.1 10 3/mcL Normal 0.0-0.4 [facility] [place] Comment on above: Performed By: #### G FR, A1C, ANEU, CBC, ADIFF, BMP #### [address] [address] Eosinophils/100 WBC (Bld) 1.6 % Normal 0.0-7.0 [facility] ([place]) Comment on above: Performed By: #### G FR, A1C, ANEU, CBC, ADIFF, BMP #### [address] [address] Lymphocyte, Absolute 1.9 10 3/mcL Normal 0.8-3.9 [facility] [place] Comment on above: Performed By: #### G FR, A1C, ANEU, CBC, ADIFF, BMP #### [address] [address] Lymphocytes/100 WBC (Bld) 23.7 % Normal 10.0-50.0 [facility] ([place]) Comment on above: Performed By: #### G FR, A1C, ANEU, CBC, ADIFF, BMP #### [address] [address] Monocyte, Absolute 0.6 10 3/mcL Normal 0.2-1.0 [facility] ([place]) Comment on above: Performed By: #### G FR, A1C, ANEU, CBC, ADIFF, BMP #### [address] [address] Monocytes/100 WBC (Bld) 7.8 % Normal 1.7-13.0 [facility] ([place]) Comment on above: Performed By: #### G FR, A1C, ANEU, CBC, ADIFF, BMP #### [address] [address] Neutrophils/100 WBC (Bld) 65.7 % Normal 37.0-80.0 [facility] ([place]) Comment on above: Performed By: #### G FR, A1C, ANEU, CBC, ADIFF, BMP #### [place] [address] [place], [place] [address] .GFRon 03-10-2023 GFR 63 ml/min/1.73sqm Normal [facility] ([place]) Comment on above: Result Comment: GFR Population [...] FR, A1C, ANEU, CBC, ADIFF, BMP #### [address] [address] GFR Non- 52 ml/min/1.73sqm Normal [facility] ([place]) Comment on above: Result Comment: GFR Population [...] FR, A1C, ANEU, CBC, ADIFF, BMP #### [address] [address] .NEUABSon 03-10-2023 Neutrophil, Absolute 5.2 10 3/mcL Normal 2.9-6.2 [facility] ([place] Comment on above: Performed By: #### G FR, A1C, ANEU, CBC, ADIFF, BMP #### [place] [id number] A1Con 03-10-2023 HbA1c (Bld) [Mass fraction] 5.6 % Normal 4.3-6.4 [facility] ([place]) Comment on above: Performed By: #### G FR, A1C, ANEU, CBC, ADIFF, BMP #### [place] [address] CBCon 03-10-2023 Erythrocyte distribution width (RBC) [Ratio] 14.7 % High 11.5-14.5 [facility] ([place]) Comment on above: Performed By: #### G FR, A1C, ANEU, CBC, ADIFF, BMP #### [place] [id number] Hematocrit (Bld) [Volume fraction] 35.6 % Low 37.0-47.0 [facility] ([place]) Comment on above: Performed By: #### G FR, A1C, ANEU, CBC, ADIFF, BMP #### [place] [id number] Hgb 12.1 G/dL Normal 12.0-16.0 [facility] ([place]) Comment on above: Performed By: #### G FR, A1C, ANEU, CBC, ADIFF, BMP #### [place] [address] MCH (RBC) [Entitic mass] 27.8 pg Normal 27.0-31.2 [facility] ([place]) Comment on above: Performed By: #### G FR, A1C, ANEU, CBC, ADIFF, BMP #### [place] [address] MCHC 34.1 G/dL Normal 33.0-37.0 [facility] ([place]) Comment on above: Performed By: #### G FR, A1C, ANEU, CBC, ADIFF, BMP #### [address] [address] MCV (RBC) [Entitic vol] 81.7 fL Normal 80.0-94.0 [facility] ([place]) Comment on above: Performed By: #### G FR, A1C, ANEU, CBC, ADIFF, BMP #### [address] [address] Platelet 300 10 3/mcL Normal 130-400 [facility] ([place]) Comment on above: Performed By: #### G FR, A1C, ANEU, CBC, ADIFF, BMP #### [address] [address] Platelet mean volume (Bld) [Entitic vol] 8.0 fL Normal 7.4-10.4 [facility] ([place] Comment on above: Performed By: #### G FR, A1C, ANEU, CBC, ADIFF, BMP #### [address] [address] RBC 4.35 10 6/mcL Normal 4.20-5.40 [facility] ([place] Comment on above: Performed By: #### G FR, A1C, ANEU, CBC, ADIFF, BMP #### [address] [address] WBC 8.0 10 3/mcL Normal 4.6-10.8 [facility] ([place] Comment on above: Performed By: #### G FR, A1C, ANEU, CBC, ADIFF, BMP #### [address] [address] CMPon 03-10-2023 Chloride [Moles/Vol] 102 mmol/L Normal 98-107 [facility] ([place]) Comment on above: Performed By: #### G FR, A1C, ANEU, CBC, ADIFF, BMP #### [address] [address] Electrolyte Balance 10.0 mEq/L Normal 4.0-15.0 [facility] ([place]) Comment on above: Performed By: #### G FR, A1C, ANEU, CBC, ADIFF, BMP #### [address] [address] Potassium [Moles/Vol] 4.3 mmol/L Normal 3.5-5.1 [facility] ([place]) Comment on above: Performed By: #### G FR, A1C, ANEU, CBC, ADIFF, BMP #### [address] [address] Sodium [Moles/Vol] 141 mmol/L Normal 136-145 [facility] ([place]) Comment on above: Performed By: #### G FR, A1C, ANEU, CBC, ADIFF, BMP #### [address] [address] Albumin Level 3.7 G/dL Normal 3.4-4.8 [facility] ([place] Comment on above: Performed By: #### G FR, A1C, ANEU, CBC, ADIFF, BMP #### [address] [address] Albumin/Globulin [Mass ratio] 1.1 {ratio} Normal 1.1-2.5 [facility] ([place] Comment on above: Performed By: #### G FR, A1C, ANEU, CBC, ADIFF, BMP #### [address] [address] ALP [Catalytic activity/Vol] 79 U/L Normal 40-135 [facility] ([place] Comment on above: Performed By: #### G FR, A1C, ANEU, CBC, ADIFF, BMP #### [address] [address] ALT [Catalytic activity/Vol] 24 U/L Normal 14-59 [facility] ([place] Comment on above: Performed By: #### G FR, A1C, ANEU, CBC, ADIFF, BMP #### [address] [address] AST [Catalytic activity/Vol] 12 U/L Normal 10-40 [facility] ([place] Comment on above: Performed By: #### G FR, A1C, ANEU, CBC, ADIFF, BMP #### [address] [address] Bili Total 0.3 mg/dL Normal 0.2-1.0 [facility] ([place] Comment on above: Result Comment: Use of this assay is not recommended for patients undergoing treatment with eltrombopag due to the potential for falsely elevated results. Performed By: #### G FR, A1C, ANEU, CBC, ADIFF, BMP #### [address] [address] BUN/Creatinine Ratio 25 ratio Normal 7-27 [facility] ([place]) Comment on above: Performed By: #### G FR, A1C, ANEU, CBC, ADIFF, BMP #### [address] [address] Calcium [Mass/Vol] 10.1 mg/dL Normal 8.4-10.2 [facility] ([place]) Comment on above: Performed By: #### G FR, A1C, ANEU, CBC, ADIFF, BMP #### [address] [address] CO2 [Moles/Vol] 29 mmol/L Normal 23-31 [facility] ([place] Comment on above: Performed By: #### G FR, A1C, ANEU, CBC, ADIFF, BMP #### [address] [address] Creatinine [Mass/Vol] 1.02 mg/dL Normal 0.55-1.02 [facility] ([place]) Comment on above: Performed By: #### G FR, A1C, ANEU, CBC, ADIFF, BMP #### [address] [address] Globulin 3.3 G/dL Normal [facility] ([place] Comment on above: Performed By: #### G FR, A1C, ANEU, CBC, ADIFF, BMP #### [address] [address] Glucose [Mass/Vol] 118 mg/dL High 83-110 [facility] ([place] Comment on above: Performed By: #### G FR, A1C, ANEU, CBC, ADIFF, BMP #### [address] [address] Total Protein 7.0 G/dL Normal 6.4-8.2 [facility] ([place] Comment on above: Performed By: #### G FR, A1C, ANEU, CBC, ADIFF, BMP #### [address] [address] Urea nitrogen [Mass/Vol] 26 mg/dL High 7-18 [facility] ([place] Comment on above: Performed By: #### G FR, A1C, ANEU, CBC, ADIFF, BMP #### [address] [address] LIPIDon 03-10-2023 Cholesterol [Mass/Vol] 214 mg/dL High 0-200 [facility] [place] Comment on above: Result Comment: Chol esterol Reference Interval: Less than 200 Desirable 200-239 Borderline high risk 240 and above High risk Performed By: #### G FR, A1C, ANEU, CBC, ADIFF, BMP #### [address] [address] Cholesterol in HDL [Mass/Vol] 62 mg/dL High 40-60 [facility] ([place] Comment on above: Performed By: #### G FR, A1C, ANEU, CBC, ADIFF, BMP #### [address] [address] Cholesterol in LDL [Mass/Vol] 111 mg/dL Normal 0-130 [facility] ([place] Comment on above: Performed By: #### G FR, A1C, ANEU, CBC, ADIFF, BMP #### [address] [address] Triglyceride [Mass/Vol] 205 mg/dL High 0-150 [facility] ([place]) Comment on above: Result Comment: Trig lyceride Reference Interval: Less than 150 Normal 150-199 Borderline high risk 200-499 High risk 500 or higher Very high risk Performed By: #### G FR, A1C, ANEU, CBC, ADIFF, BMP #### [address] [address] PHOSon 03-10-2023 Phosphate [Mass/Vol] 3.2 mg/dL Normal 2.3-4.1 [facility] ([place]) Comment on above: Performed By: #### G FR, A1C, ANEU, CBC, ADIFF, BMP #### [address] [address] PTHon 03-10-2023 PTH, Intact 78.2 pg/mL Normal 18.5-88.0 [facility] ([place]) Comment on above: Performed By: #### G FR, A1C, ANEU, CBC, ADIFF, BMP #### [address] [address] VIDHon 03-10-2023 Vit. D 25-Hydroxy 32.1 ng/mL Normal [facility] ([place]) Comment on above: Result Comment: Inte rpretive Values Based on Total 25(OH) Vitamin D: Deficient <20 ng/mL Insufficient 20 - <30 ng/mL Sufficient 30-100 ng/mL Performed By: #### G FR, A1C, ANEU, CBC, ADIFF, BMP #### [address] [address] BD BONE DENSITY DEXA AXIAL S KELETONon [...] AM Ordering Provider: LARRY Geronimo [facility] ([place]) .Auto Diffon 09-16-2022 Basophil, Absolute 0.1 10 3/mcL Normal 0.0-0.2 [facility] ([place]) Comment on above: Performed By: #### G FR, A1C, ANEU, CBC, ADIFF, BMP #### [address] [address] Basophils/100 WBC (Bld) 0.8 % Normal 0.0-2.5 [facility] ([place] Comment on above: Performed By: #### G FR, A1C, ANEU, CBC, ADIFF, BMP #### [address] [address] Eosinophil, Absolute 0.2 10 3/mcL Normal 0.0-0.4 [facility] [place] Comment on above: Performed By: #### G FR, A1C, ANEU, CBC, ADIFF, BMP #### [address] [address] Eosinophils/100 WBC (Bld) 2.1 % Normal 0.0-7.0 [facility] ([place] Comment on above: Performed By: #### G FR, A1C, ANEU, CBC, ADIFF, BMP #### [address] [address] Lymphocyte, Absolute 2.0 10 3/mcL Normal 0.8-3.9 [facility] [place] Comment on above: Performed By: #### G FR, A1C, ANEU, CBC, ADIFF, BMP #### [address] [address] Lymphocytes/100 WBC (Bld) 22.9 % Normal 10.0-50.0 [facility] ([place] Comment on above: Performed By: #### G FR, A1C, ANEU, CBC, ADIFF, BMP #### [address] [address] Monocyte, Absolute 0.5 10 3/mcL Normal 0.2-1.0 [facility] ([place]) Comment on above: Performed By: #### G FR, A1C, ANEU, CBC, ADIFF, BMP #### [address] [address] Monocytes/100 WBC (Bld) 6.4 % Normal 1.7-13.0 [facility] ([place] Comment on above: Performed By: #### G FR, A1C, ANEU, CBC, ADIFF, BMP #### [address] [address] Neutrophils/100 WBC (Bld) 67.8 % Normal 37.0-80.0 [facility] ([place] Comment on above: Performed By: #### G FR, A1C, ANEU, CBC, ADIFF, BMP #### [address] [address] .GFRon 09-16-2022 GFR Non- 48 ml/min/1.73sqm Normal [facility] ([place] Comment on above: Result Comment: GFR Population [...] FR, A1C, ANEU, CBC, ADIFF, BMP #### [address] [address] GFR 59 ml/min/1.73sqm Normal [facility] ([place] Comment on above: Result Comment: GFR Population [...] FR, A1C, ANEU, CBC, ADIFF, BMP #### [address] [address] .NEUABSon 09-16-2022 Neutrophil, Absolute 5.8 10 3/mcL Normal 2.9-6.2 [facility] [place] Comment on above: Performed By: #### G FR, A1C, ANEU, CBC, ADIFF, BMP #### [address] [address] A1Con 09-16-2022 HbA1c (Bld) [Mass fraction] 5.7 % Normal 4.3-6.4 [facility] ([place] Comment on above: Performed By: #### G FR, A1C, ANEU, CBC, ADIFF, BMP #### [address] [address] BMPon 09-16-2022 BUN/Creatinine Ratio 27 ratio Normal 7-27 [facility] ([place]) Comment on above: Performed By: #### G FR, A1C, ANEU, CBC, ADIFF, BMP #### [address] [address] Calcium [Mass/Vol] 9.8 mg/dL Normal 8.4-10.2 [facility] ([place]) Comment on above: Performed By: #### G FR, A1C, ANEU, CBC, ADIFF, BMP #### [address] [address] Chloride [Moles/Vol] 106 mmol/L Normal 98-107 [facility] ([place]) Comment on above: Performed By: #### G FR, A1C, ANEU, CBC, ADIFF, BMP #### [address] [address] CO2 [Moles/Vol] 29 mmol/L Normal 23-31 [facility] ([place] Comment on above: Performed By: #### G FR, A1C, ANEU, CBC, ADIFF, BMP #### [address] [address] Creatinine [Mass/Vol] 1.08 mg/dL High 0.55-1.02 [facility] ([place]) Comment on above: Performed By: #### G FR, A1C, ANEU, CBC, ADIFF, BMP #### [address] [address] Electrolyte Balance 8.0 mEq/L Normal 4.0-15.0 [facility] ([place]) Comment on above: Performed By: #### G FR, A1C, ANEU, CBC, ADIFF, BMP #### [address] [address] Glucose [Mass/Vol] 125 mg/dL High 83-110 [facility] ([place]) Comment on above: Performed By: #### G FR, A1C, ANEU, CBC, ADIFF, BMP #### [address] [address] Potassium [Moles/Vol] 4.5 mmol/L Normal 3.5-5.1 [facility] ([place]) Comment on above: Performed By: #### G FR, A1C, ANEU, CBC, ADIFF, BMP #### [address] [address] Sodium [Moles/Vol] 143 mmol/L Normal 136-145 [facility] ([place]) Comment on above: Performed By: #### G FR, A1C, ANEU, CBC, ADIFF, BMP #### [address] [address] Urea nitrogen [Mass/Vol] 29 mg/dL High 7-18 [facility] ([place] Comment on above: Performed By: #### G FR, A1C, ANEU, CBC, ADIFF, BMP #### [address] [address] CBCon 09-16-2022 Erythrocyte distribution width (RBC) [Ratio] 14.6 % High 11.5-14.5 [facility] ([place] Comment on above: Performed By: #### G FR, A1C, ANEU, CBC, ADIFF, BMP #### [place] [id number] Hematocrit (Bld) [Volume fraction] 33.9 % Low 37.0-47.0 [facility] ([place] Comment on above: Performed By: #### G FR, A1C, ANEU, CBC, ADIFF, BMP #### [address] [address] Hgb 11.2 G/dL Low 12.0-16.0 [facility] ([place] Comment on above: Performed By: #### G FR, A1C, ANEU, CBC, ADIFF, BMP #### [address] [address] MCH (RBC) [Entitic mass] 27.0 pg Normal 27.0-31.2 [facility] ([place] Comment on above: Performed By: #### G FR, A1C, ANEU, CBC, ADIFF, BMP #### [address] [address] MCHC 33.1 G/dL Normal 33.0-37.0 [facility] ([place] Comment on above: Performed By: #### G FR, A1C, ANEU, CBC, ADIFF, BMP #### [address] [address] MCV (RBC) [Entitic vol] 81.6 fL Normal 80.0-94.0 [facility] [place] Comment on above: Performed By: #### G FR, A1C, ANEU, CBC, ADIFF, BMP #### [address] [address] Platelet 275 10 3/mcL Normal 130-400 [facility] ([place]) Comment on above: Performed By: #### G FR, A1C, ANEU, CBC, ADIFF, BMP #### [address] [address] Platelet mean volume (Bld) [Entitic vol] 8.2 fL Normal 7.4-10.4 [facility] ([place] Comment on above: Performed By: #### G FR, A1C, ANEU, CBC, ADIFF, BMP #### [address] [address] RBC 4.15 10 6/mcL Low 4.20-5.40 [facility] ([place] Comment on above: Performed By: #### G FR, A1C, ANEU, CBC, ADIFF, BMP #### [address] [address] WBC 8.5 10 3/mcL Normal 4.6-10.8 [facility] ([place] Comment on above: Performed By: #### G FR, A1C, ANEU, CBC, ADIFF, BMP #### [address] [address] LABORATORYOrdered By: SYSTEM SYSTEM on 06-19-2022 Basophils [...] CNPNon 06-03-2022 CNPN Telephone (GENSWS) SHACT GARCIA ([id number]) 1940 F Date Time Provider Department 06/03/22 PAULA ALANIZ During your visit today, we recorded the following information about you: Brenton Jennings RN 06/03/2022 11:29 AM Signed Received a request from [facility] for all of Ct's left breast cancer treatment medical records. Faxed the request to medical records on [facility], fax confirmation sheet received. Brenton Jennings [...] Status:Closed by BRENTON JENNINGS on 06/03/22 Normal [facility] LABORATORYOrdered By: SYSTEM SYSTEM on 04-14-2022 Albumin [...] CNOV Office Visit (TONYA ) CT DALTON ([id number]) 1940 F Date Time Provider Department 04/06/22 [...] needle core breast biopsies on 03/23/2022 at [facility]. Findings of fat necrosis, inflammation and dense [...] once daily. (more content not included)... Normal [facility] LABORATORYOrdered By: SYSTEM SYSTEM on 03-09-2022 Albumin [...] 12-04 Culture Urine No growth to date [facility] Microscopic examination of blood, culture Culture has been received in lab and is no growth to date. Routine cultures are held for 5 days. [facility] LABORATORYOrdered By: Rick Webber on 12-03-2021 Appearance [...] 1.006-1.029 AM [facility] Subsection Urobilinogen Qn (U) [id number] {Sara'U}/dL Invalid Interpretation Code 0.2-1.0E.U. /dL AM [...] on above: Result Comment: [address] [place], [place] [address] Perf Loc - POCT Tested at AM Invalid Interpretation Code AM [facility] Subsection Comment on above: Result Comment: [address] [place], [place] [address] Perf Loc - POCT Tested at AM Invalid Interpretation Code AM [facility] Subsection Comment on above: Result Comment: [address] [place], [place] [address] MRI BREAST WO/W IVCON BILon 03-01-2018 MRI BREAST WO/W IVCON DUNCAN * * *Final Report* * * DATE OF EXAM: Mar 01 2018 11:54AM [facility] 0773 - MRI BREAST WO/W IVCON DUNCAN / PROCEDURE REASON: N64.4-Mastodynia * * * * Physician Interpretation * * * * #[id number] - MRI BREAST WO/W IVCON DUNCAN BREAST MRI OF BOTH BREASTS: 03/01/2018 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 Short interval follow up of the lumpectomy site recommended per the prior MRI dated 05/18/2017. RESULT: Comparison is made to exam dated: 05/18/2017 breast MRI - [facility]. Interpretation of this MRI was correlated with [...] Follow-up with ACR/NCCN guidelines. Td carlson/rafael:03/01/2018 14:15:08 [employer] Man(s): RT Amanda(N)(MR), [facility] MRI BI-RADS: 2 Benign finding Multiple national specialty organizations have released breast cancer screening guidelines for women at average risk for developing breast cancer - guidelines that are based on both evidence and opinion, yet differ on when to start and how often to screen for breast cancer. With representation from Breast Imaging, Internal Medicine, Women's Health, Family Medicine, and Medical/Surgical Oncology, the [facility] has carefully reviewed the data [...] their providers when to stop screening mammograms. Striker Off: Rafael Transcribe Date/Time: Mar 01 2018 11:37A Dictated by : TD SANDERS MD This examination was interpreted and the report reviewed and electronically signed by: TD SANDERS MD on Mar 01 2018 2:15PM EST [id number] [facility] NURSING PROGon 03-01-2018 Protein mass conc HNO ID: [id number] Author: Carla Love (Rn) Kristopher Service: Radiology [...] RN March 01, 2018 10:49 AM [facility] Clinical Summary: HMSPatient IDon 01-17-2018 OOP Invalid Interpretation Code [facility] Work Phone: Office Visit: Follow-up by donnie servin, Rm: [email or web address] 01-17-2018 NEGATED: Highlighted rowMRI (magnetic resonance imaging) history of the lumbar spine on 10/20/2013 at [facility] Invalid Interpretation Code [facility] Work Phone: NEGATED: Highlighted rowProtein mass conc Done Invalid Interpretation Code [facility] Work Phone: MRI BREAST WO/W IVCON BILon 05-18-2017 MRI BREAST WO/W IVCON DUNCAN * * *Final Report* * * DATE OF EXAM: May 18 2017 2:32PM [facility] 0773 - MRI BREAST WO/W IVCON DUNCAN / PROCEDURE REASON: Z13.89-Encounter for screening for other disorder * * * * Physician Interpretation * * * * #[id number] - MRI BREAST WO/W IVCON DUNCAN BREAST [...] staff physician. Cricket Pineda M.D. camilo,gaurav/rafael:05/18/2017 15:28:32 [employer] Man: Cally SPEARS(Alex)(Jeanine), [facility] MRI BI-RADS: 3 Probably benign finding - short term interval follow-up recommended Striker Off: Rafael Transcribe Date/Time: May 18 2017 2:15P Dictated by : MALLIKA PINEDA MD This examination was interpreted and the report reviewed and electronically signed by: CRICKET AMBRIZ MD on May 18 2017 3:28PM EST [id number] [facility] NURSING PROGon 05-18-2017 Protein mass conc HNO ID: [id number] Author: Ema PaulRn) DONA Bai Service: PICC [...] TIME: 1:27 PM PAGER/CONTACT #: [phone] [facility] Vital Signs Date Time Vital Sign Value Performing Clinician Facility 08-26-2024 12:46-0400 Body height 167.[address] Warner Leos MD Work Phone: [facility] 07-24-2024 03:24-0400 Diastolic blood pressure 69 mm[Hg] Dr. Warner Leos MD Work Phone: [facility] 07-24-2024 03:24-0400 Heart rate 52 /min Dr. Warner Leos MD Work Phone: [facility] 07-24-2024 03:24-0400 SaO2% (BldA) [Mass fraction] 100 % Dr. Warner Leos MD Work Phone: [facility] 07-24-2024 03:24-0400 Systolic blood pressure 164 mm[Hg] Dr. Warner Leos MD Work Phone: [facility] 07-24-2024 01:24-0400 Body height 167.[address] Warner Leos MD Work Phone: [facility] 07-24-2024 01:24-0400 Body mass index (BMI) [Ratio] 28 kg/m2 Dr. Warner Leos MD Work Phone: [facility] 07-24-2024 01:24-0400 Body temperature 98 [degF] Dr. Warner Leos MD Work Phone: [facility] 07-24-2024 01:24-0400 Body weight 78.[address] Warner Leos MD Work Phone: [facility] 07-24-2024 01:24-0400 Respiratory rate 16 /min Dr. Warner Leos MD Work Phone: [facility] 02-10-2024 15:30-0500 Body temperature 97.52 [degF] [address] SWEEPER OPERATOR-FIELD MANAGER [facility] 02-10-2024 15:30-0500 Diastolic Blood Pressure Non-Invasive 72 mm[Hg] [address] SWEEPER OPERATOR-FIELD MANAGER [facility] 02-10-2024 15:30-0500 Heart rate 84 /min [address] SWEEPER OPERATOR-FIELD MANAGER [facility] 02-10-2024 15:30-0500 Reason For Taking VItal Signs [address]DA DEL [address] SWEEPER OPERATOR-FIELD MANAGER [facility] 02-10-2024 15:30-0500 Respiratory rate 16 /min [address] SWEEPER OPERATOR-FIELD MANAGER [facility] 02-10-2024 15:30-0500 Systolic Blood Pressure Non-Invasive 146 mm[Hg] [address]DA [address] SWEEPER OPERATOR-FIELD MANAGER [facility] 02-10-2024 06:37-0500 Body temperature 97.34 [degF] [address]DA [address] SWEEPER OPERATOR-FIELD MANAGER [facility] 02-10-2024 06:37-0500 Diastolic Blood Pressure Non-Invasive 82 mm[Hg] ELDA [address] SWEEPER OPERATOR-FIELD MANAGER [facility] 02-10-2024 06:37-0500 Heart rate 80 /min [address]DA [address] SWEEPER OPERATOR-FIELD MANAGER [facility] 02-10-2024 06:37-0500 Reason For Taking VItal Signs ELDA [address] SWEEPER OPERATOR-FIELD MANAGER [facility] 02-10-2024 06:37-0500 Respiratory rate 14 /min [address]DA [address] SWEEPER OPERATOR-FIELD MANAGER [facility] 02-10-2024 06:37-0500 Systolic Blood Pressure Non-Invasive 148 mm[Hg] ELDA [address] SWEEPER OPERATOR-FIELD MANAGER [facility] 02-10-2024 03:22-0500 Body temperature 97.52 [degF] [address]DA [address] SWEEPER OPERATOR-FIELD MANAGER [facility] 02-10-2024 03:22-0500 Diastolic Blood Pressure Non-Invasive 81 mm[Hg] ELDA [address] SWEEPER OPERATOR-FIELD MANAGER [facility] 02-10-2024 03:22-0500 Heart rate 81 /min [address]DA [address] SWEEPER OPERATOR-FIELD MANAGER [facility] 02-10-2024 03:22-0500 Reason For Taking VItal Signs ELDA [address] SWEEPER OPERATOR-FIELD MANAGER [facility] 02-10-2024 03:22-0500 Respiratory rate 14 /min [address]DA [address] SWEEPER OPERATOR-FIELD MANAGER [facility] 02-10-2024 03:22-0500 Systolic Blood Pressure Non-Invasive 156 mm[Hg] ELDA [address] SWEEPER OPERATOR-FIELD MANAGER [facility] 02-09-2024 22:01-0500 Heart rate 74 /min [address] SWEEPER OPERATOR-FIELD MANAGER [facility] 02-09-2024 21:59-0500 Body height 152 [address] SWEEPER OPERATOR-FIELD MANAGER [facility] 02-09-2024 21:59-0500 Body weight 67 [address] SWEEPER OPERATOR-FIELD MANAGER [facility] 02-09-2024 21:59-0500 Body weight 29 kg/m2 [address]DA [address] SWEEPER OPERATOR-FIELD MANAGER [facility] 02-09-2024 21:07-0500 Heart rate 78 /min [address] SWEEPER OPERATOR-FIELD MANAGER [facility] 02-09-2024 21:07-0500 Mean blood pressure 90 mm[Hg] [address]DA [address] SWEEPER OPERATOR-FIELD MANAGER [facility] 02-09-2024 20:38-0500 Mean blood pressure 85 mm[Hg] [address] SWEEPER OPERATOR-FIELD MANAGER [facility] 02-09-2024 19:39-0500 Heart rate 83 /min [address] SWEEPER OPERATOR-FIELD MANAGER [facility] 01-21-2024 10:04-0500 Body height 160 cm INES DENNIS MD [facility] 01-21-2024 10:04-0500 Body temperature 97.52 [degF] INES DENNIS MD [facility] 01-21-2024 10:04-0500 Body weight 68.2 kg INES DENNIS MD [facility] 01-21-2024 10:04-0500 Diastolic Blood Pressure Non-Invasive 81 mm[Hg] INES DENNIS MD [facility] 01-21-2024 10:04-0500 Heart rate 85 /min INES DENNIS MD [facility] 01-21-2024 10:04-0500 Respiratory rate 18 /min INES DENNIS MD [facility] 01-21-2024 10:04-0500 Systolic Blood Pressure Non-Invasive 164 mm[Hg] INES DENNIS MD [facility] 12-09-2023 08:47-0400 Blood Pressure Location INES DENNIS MD [facility] 12-09-2023 08:47-0400 Blood Pressure Method INES DENNIS MD [facility] 12-09-2023 08:47-0400 Body temperature 98.24 [degF] INES DENNIS MD [facility] 12-09-2023 08:47-0400 Diastolic Blood Pressure Non-Invasive 91 mm[Hg] INES DENNIS MD [facility] 12-09-2023 08:47-0400 Heart rate 90 /min INES DENNIS MD [facility] 12-09-2023 08:47-0400 Respiratory rate 18 /min INES DENNIS MD [facility] 12-09-2023 08:47-0400 Systolic Blood Pressure Non-Invasive 161 mm[Hg] INES DENNIS MD [facility] 11-29-2023 12:26-0400 Diastolic Blood Pressure Non-Invasive 76 mm[Hg] SONNY STAHL DO [facility] 11-29-2023 12:26-0400 Heart rate 76 /min SONNY STAHL DO [facility] 11-29-2023 12:26-0400 Respiratory rate 18 /min SONNY STAHL DO [facility] 11-29-2023 12:26-0400 Systolic Blood Pressure Non-Invasive 164 mm[Hg] SONNY STAHL DO [facility] 11-29-2023 08:58-0400 Blood Pressure Cuff Size SONNY STHAL DO [facility] 11-29-2023 08:58-0400 Blood Pressure Location SONNY STAHL DO [facility] 11-29-2023 08:58-0400 Blood Pressure Method SONNY STAHL DO [facility] 11-29-2023 08:58-0400 Body height 155 cm SONNY STAHL DO [facility] 11-29-2023 08:58-0400 Body temperature 97.34 [degF] SONNY STAHL DO [facility] 10-21-2024 08:58-0400 Diastolic Blood Pressure Non-Invasive 83 mm[Hg] SONNY STAHL DO [facility] 11-29-2023 08:58-0400 Heart rate 84 /min SONNY STAHL DO [facility] 11-29-2023 08:58-0400 Respiratory rate 18 /min SONNY STAHL DO [facility] 11-29-2023 08:58-0400 Systolic Blood Pressure Non-Invasive 172 mm[Hg] SONNY STAHL DO [facility] 06-19-2022 12:01-0400 Blood Pressure Cuff Size DR ANISA GOMEZ MD [facility] 06-19-2022 12:01-[address] ANISA GOMEZ MD [facility] 06-19-2022 12:01-[address] ANISA GOMEZ MD [facility] 06-19-2022 12:01-0400 Body height [address] ANISA GOMEZ MD [facility] 06-19-2022 12:01-0400 Body temperature 97.7 [degF] DR ANISA GOMEZ MD [facility] 06-19-2022 12:01-0400 Body weight 76.[address] ANISA GOMEZ MD [facility] 06-19-2022 12:01-0400 Body weight 31.88 kg/m2 DR ANISA GOMEZ MD [facility] 06-19-2022 12:01-0400 Diastolic Blood Pressure Non-Invasive [address] ANISA GOMEZ MD [facility] 06-19-2022 12:01-0400 Heart rate 86 /min DR ANISA GOMEZ MD [facility] 06-19-2022 12:01-0400 Systolic Blood Pressure Non-Invasive [address] ANISA GOMEZ MD [facility] 04-06-2022 09:47-0500 Body height 157.5 cm Paula Alaniz MD Work Phone: [facility] 04-06-2022 09:47-0500 Body temperature 97.81 [degF] Paula Alaniz MD Work Phone: [facility] 04-06-2022 09:47-0500 Body weight 73.94 kg Paula Alaniz MD Work Phone: [facility] 04-06-2022 09:47-0500 Diastolic blood pressure 70 mm[Hg] Paula Alaniz MD Work Phone: [facility] 04-06-2022 09:47-0500 Heart rate 109 /min Paula Alaniz MD Work Phone: [facility] 04-06-2022 09:47-0500 SaO2% (BldA) [Mass fraction] 99 % Paula Alaniz MD Work Phone: [facility] 04-06-2022 09:47-0500 Systolic blood pressure 148 mm[Hg] Paula Alaniz MD Work Phone: [facility] 12-25-2021 16:18-0500 Diastolic Blood Pressure Non-Invasive 69 1 INES DENNIS MD [facility] 12-25-2021 16:18-0500 Systolic Blood Pressure Non-Invasive 189 1 INES DENNIS MD [facility] 12-25-2021 15:56-0500 Body height 157.5 cm INES DENNIS MD [facility] 12-25-2021 15:56-0500 Body temperature 96.44 [degF] INES DENNIS MD [facility] 12-25-2021 15:56-0500 Body weight 65.9 kg INES DENNIS MD [facility] 12-25-2021 15:56-0500 Diastolic Blood Pressure Non-Invasive 109 1 INES DENNIS MD [facility] 12-25-2021 15:56-0500 Heart rate 90 /min INES DENNIS MD [facility] 12-25-2021 15:56-0500 Respiratory rate 20 /min INES DENNIS MD [facility] 12-25-2021 15:56-0500 Systolic Blood Pressure Non-Invasive 202 1 INES DENNIS MD [facility] 12-06-2021 12:58-0400 Diastolic blood pressure 77 mm[Hg] DR KEVIN VIRGEN MD [facility] 12-06-2021 12:58-0400 Mean blood pressure 111 mm[Hg] DR KEVIN VIRGEN MD [facility] 12-06-2021 12:58-0400 Systolic blood pressure 180 mm[Hg] DR KEVIN VIRGEN MD [facility] 12-06-2021 12:55-0400 Diastolic blood pressure 77 mm[Hg] DR KEVIN VIRGEN MD [facility] 12-06-2021 12:55-0400 Heart rate 60 /min DR KEVIN VIRGEN MD [facility] 12-06-2021 12:55-0400 Mean blood pressure 111 mm[Hg] DR KEVIN VIRGEN MD [address] [place] [address] 12-06-2021 12:55-0400 Reason For Taking VItal Signs DR KEVIN VIRGEN MD [address] [place] [address] 12-06-2021 12:55-0400 Respiratory rate 18 /min DR KEVIN VIRGEN MD [address] [place] [address] 12-06-2021 12:55-0400 Systolic blood pressure 180 mm[Hg] DR KEVIN VIRGEN MD [address] [place] [address] 12-06-2021 08:46-0400 Heart rate 78 /min DR KEVIN VIRGEN MD [address] [place] [address] 12-06-2021 08:30-0400 Body temperature 98.06 [degF] DR KEVIN VIRGEN MD [address] [place] [address] 12-06-2021 08:30-0400 Diastolic blood pressure 82 mm[Hg] DR KEVIN VIRGEN MD [address] 12-06-2021 08:30-0400 Heart rate 77 /min DR KEVIN VIRGEN MD [address] 12-06-2021 08:30-0400 Mean blood pressure 106 mm[Hg] DR KEVIN VIRGEN MD [address] [place] [address] 12-06-2021 08:30-0400 Reason For Taking VItal Signs DR KEVIN VIRGEN MD [address] 12-06-2021 08:30-0400 Respiratory rate 17 /min DR KEVIN VIRGEN MD [address] [place] [address] 12-06-2021 08:30-0400 Systolic blood pressure 155 mm[Hg] DR KEVIN VIRGEN MD [address] [place] [address] 12-06-2021 03:45-0400 Body temperature 97.88 [degF] DR KEVIN VIRGEN MD [address] [place] [address] 12-06-2021 03:45-0400 Reason For Taking VItal Signs DR KEVIN VIRGEN MD [address] [place] [address] 12-06-2021 03:45-0400 Respiratory rate 18 /min DR KEVIN VIRGEN MD [address] [place] [address] 12-05-2021 23:53-0400 Body temperature 98.06 [degF] DR KEVIN VIRGEN MD [address] [place] [address] 12-04-2021 15:33-0400 Heart rate 56 /min DR KEVIN VIRGEN MD [address] [place] [address] 12-04-2021 02:47-0400 Heart rate 55 /min DR KEVIN VIRGEN MD [address] [place] [address] 12-03-2021 23:44-0400 Heart rate 60 /min DR KEVIN VIRGEN MD [address] [place] [address] 12-03-2021 21:46-0400 Body height [address] KEVIN VIRGEN MD [address] [place] [address] 12-03-2021 21:46-0400 Body weight 83.[address] KEVIN VIRGEN MD [address] [place] [address] 12-03-2021 21:46-0400 Body weight 32.73 kg/m2 DR KEVIN VIRGEN MD [address] [place] [address] 12-03-2021 21:30-0400 Heart rate 86 /min DR KEVIN VIRGEN MD [address] [place] [address] 12-03-2021 14:26-0400 Body temperature 98.06 [degF] DR KEVIN VIRGEN MD [address] [place] [address] 12-03-2021 14:26-0400 Body weight 83.[address] KEVIN VIRGEN MD [address] [place] [address] NEGATED: Highlighted [id number] 10:24-0500 BMI (Body Mass Index) 37.26 kg/m2 Rigo Sitko AT [facility] [place] [facility] Work Phone: NEGATED: Highlighted [id number] 10:24-0500 BP Diastolic 72 mm[Hg] Rigo Sitko AT [facility] Work Phone: NEGATED: Highlighted [id number] 10:24-0500 BP Diastolic 82 mm[Hg] Rigo Sitko AT [facility] [place] [facility] Work Phone: NEGATED: Highlighted [id number] 10:24-0500 BP Systolic 154 mm[Hg] Rigo Sitko AT [facility] Work Phone: NEGATED: Highlighted [id number] 10:24-0500 BP Systolic 149 mm[Hg] Rigo Sitko AT [facility] Work Phone: NEGATED: Highlighted [id number] 10:24-0500 Height 157.48 cm Rigo Sitko AT [facility] [place] [facility] Work Phone: NEGATED: Highlighted [id number] 10:24-0500 Height 157 cm Rigo Sitko AT [facility] [place] [facility] Work Phone: NEGATED: Highlighted [id number] 10:24-0500 Pulse (Heart Rate) 60 /min Rigo Best AT [facility] [place] [facility] Work Phone: NEGATED: Highlighted [id number] 10:24-0500 Weight 92.08 kg Rigo Sitko AT [facility] [place] [facility] Work Phone: NEGATED: Highlighted [id number] 10:24-0500 Weight 92 kg Rigo Sitko AT [facility] Work Phone: Encounters Encounter Date Encounter Type Care Provider Facility Start: 09-18-2024 ambulatory Efmargarette TREVIÑO Fa cility:[facility] Start: 09-18-2024 Registered Referred Efewongbe Oleghe MD -[facility] Start: 08-28-2024 ambulatory Jairon eMdel OLS Fa cility:[facility] Start: 08-28-2024 [facility] Start: 08-21-2024 ambulatory Jairon Medel Facili ty:[facility] Start: 08-21-2024 [facility] Start: 08-08-2024 End: 08-08-[address] Warner Leos MD Work Phone: -[facility] Start: 08-08-2024 End: 08-08-[address] Jairon Medel MD -[facility] Work Phone: Start: 08-08-2024 Non-patient / Non-visit Dr. Julia young MD -[facility] Work Phone: Start: 07-24-2024 End: 07-24-[address] Warner Leos MD Work Phone: -[facility] Start: 07-24-2024 End: 07-24-2024 Patient encounter procedure Jane Barth GABBY-Donnie -[facility] Work Phone: Start: 07-24-2024 End: 07-24-2024 Emergency department patient visit Dr. Warner Leos MD Work Phone: -Emergency Department Work Phone: Start: 06-27-2024 End: 06-27-[address] Warner Leos MD Work Phone: -[facility] Start: 06-27-2024 End: 06-27-[address] Jairon Medel MD -[facility] Work Phone: Start: 06-26-2024 End: 06-26-[address] Warner Leos MD Work Phone: [facility] Work Phone: Start: 06-26-2024 End: 06-26-2024 Departed Referred Jairon Ruvalcaba Start: 06-26-2024 End: 06-26-2024 ambulatory Poojamargarette Cortezdorcas TREVIÑO Facility:[facility] Start: 05-29-2024 End: 05-29-[address] Warner Leos MD Work Phone: [facility] Work Phone: Start: 05-29-2024 End: 05-29-2024 Departed Referred Jairon Ruvalcaba Start: 05-29-2024 Registered Referred Jairon Ruvalcaba Start: 05-29-2024 End: 05-29-2024 ambulatory Poojamargarette TREVIÑO Facility:[facility] Start: 05-24-2024 End: 05-24-[address] Warner Leos MD Work Phone: [facility] Work Phone: Start: 05-24-2024 End: 05-24-2024 Departed Referred Jairon Ruvalcaba Start: 05-24-2024 Registered Referred Jairon Ruvalcaba Start: 05-23-2024 End: 05-24-[address] Warner Leos MD Work Phone: [facility] Work Phone: Start: 05-23-2024 End: 05-23-2024 Patient encounter procedure Jane Lary CYLINDER TESTER- -[facility] Work Phone: Start: 05-15-2024 End: 05-15-[address] Warner Leos MD Work Phone: [facility] Work Phone: Start: 05-15-2024 End: 05-15-2024 Departed Referred Jairon Ruvalcaba Start: 05-15-2024 Registered Referred Efmargarette Ruvalcaba Start: 05-15-2024 End: 05-15-2024 ambulatory Jairon TREVIÑO Facility:[facility] Start: 05-12-2024 End: 05-12-[address] Warner Leos MD Work Phone: [facility] Work Phone: Start: 05-12-2024 End: 05-12-2024 [facility] Start: 05-01-2024 End: 05-01-[address] Warner Leos MD Work Phone: [facility] Work Phone: Start: 05-01-2024 End: 05-01-2024 Departed Referred Jairon Ruvalcaba Start: 05-01-2024 End: 05-01-2024 ambulatory Jairon TREVIÑO Facility:[facility] Start: 04-26-2024 End: 04-26-2024 ambulatory [facility] Facility:[facility] Start: 04-26-2024 End: 04-26-2024 Patient encounter procedure [facility] Start: 04-11-2024 End: 04-11-2024 ambulatory Carrillomahadmakenzie Gianfranco Facility:[facility] Start: 04-11-2024 End: 04-11-[address] Jairon Medel MD -[facility] Work Phone: Start: 04-03-2024 End: 04-03-2024 Patient encounter [facility] Work Phone: Start: 04-03-2024 End: 04-03-2024 ambulatory [facility] Facility:[facility] Start: 04-03-2024 Registered Referred Jairon Ruvalcaba Start: 03-27-2024 ambulatory Jairon TREVIÑO Fa cility:[facility] Start: 03-27-2024 Registered Referred Jairon LockhartKate Ruvalcaba Start: 02-29-2024 End: 02-29-2024 ambulatory Jairon Medel Facility:[facility] Start: 02-29-2024 End: 02-29-[address] Jairon Medel MD -[facility] Work Phone: Start: 02-28-2024 End: 02-28-2024 Departed Referred Jairon LockhartKate Ruvalcaba Start: 02-28-2024 End: 02-28-2024 ambulatory Jairon TREVIÑO Facility:[facility] Start: 02-24-2024 End: 02-24-2024 ambulatory Jane Barth Facility:[facility] Start: 02-24-2024 End: 02-24-2024 Patient encounter procedure Jane Barth CYLINDER TESTER-C -[facility] Work Phone: Start: 02-11-2024 End: 02-23-[address] LARRY THOMAS DO Facility:[facility] Start: 02-09-2024 End: 02-10-2024 Emergency department patient visit ELDA DEL ROSARIO APRN-FIELD MANAGER Facility:[facility] Start: 02-09-2024 End: 02-10-2024 Observation ELDA CARIN IGLESIAS-FIELD MANAGER [facility] Start: 01-21-2024 End: 01-21-2024 Emergency department patient visit INES DENNIS MD [facility] Start: 01-05-2024 End: 01-05-[address] LARRY THOMAS DO [facility] Start: 01-05-2024 End: 01-05-[address] LARRY THOMAS DO [facility] Start: 12-29-2023 End: 12-29-[address] LARRY THOMAS DO [facility] Start: 12-29-2023 End: 12-29-[address] LARRY THOMAS DO [facility] Start: 12-21-2023 End: 12-21-[address] LARRY THOMAS DO [facility] Start: 12-21-2023 End: 12-21-[address] LARRY THOMAS DO [facility] Start: 12-18-2023 End: 01-26-[address] LARRY THOMAS DO Facility:[facility] Start: 12-15-2023 End: 12-15-[address] LARRY THOMAS DO [facility] Start: 12-15-2023 End: 12-15-[address] LARRY THOMAS DO [facility] Start: 12-15-2023 End: 12-19-[address] LARRY THOMAS DO [facility] Start: 12-15-2023 End: 12-19-[address] LARRY THOMAS DO [facility] Start: 12-09-2023 End: 12-09-2023 Emergency department patient visit INES DENNIS MD [facility] Start: 11-29-2023 End: 11-29-2023 Emergency department patient visit SONNY STAHL DO [facility] Start: 07-08-2023 End: 07-09-[address] LARRY THOMAS DO Facility:[facility] Start: 07-08-2023 End: 07-08-[address] LARRY THOMAS DO [facility] Start: 04-14-2023 End: 04-15-2023 ambulatory MAHAD LORENZO MD Facility:[facility] Start: 04-14-2023 End: 04-14-2023 Patient encounter procedure MAHAD LORENZO MD [facility] Start: 04-09-2023 End: 05-06-[address] LARRY THOMAS DO Facility:[facility] Start: 04-09-2023 End: 02-14-[address] LARRY THOMAS DO Facility:[facility] Start: 04-07-2023 End: 04-08-[address] LARRY THOMAS DO Facility:[facility] Start: 04-07-2023 End: 04-07-2023 Patient encounter procedure MAHAD LORENZO MD [facility] Start: 03-10-2023 End: 03-11-[address] LARRY THOMAS DO Facility:[facility] Start: 12-14-2022 End: 12-15-[address] LARRY THOMAS DO Facility:[facility] Start: 2022 End: 11-09-[address] LARRY THOMAS DO Facility:[facility] Start: 2022 End: 11-09-2022 Coordination of care plan DR LARRY THOMAS DO [facility] Start: 09-16-2022 End: 09-17-[address] LARRY THOMAS DO Facility:[facility] Start: 07-16-2022 End: 07-17-[address] ANISA GOMEZ MD Facility:[facility] Start: 06-19-2022 End: 06-19-[address] ANISA GOMEZ MD [facility] Start: 06-03-2022 Telephone encounter Paula Yepez MD Work Phone: General Surgery Comment on above: Request for medical records Start: 04-15-2022 End: 04-15-[address] LARRY THOMAS DO [facility] Start: 04-14-2022 End: 04-14-[address] LARRY THOMAS DO [facility] Start: 04-06-2022 End: 04-07-2022 ambulatory PAULA ALANIZ Facility:[facility] Start: 04-06-2022 End: 04-06-2022 Patient encounter procedure Paula Alaniz MD Work Phone: General Surgery Comment on above: Abnormal ultrasound of breast; History of left breast cancer Start: 03-23-2022 End: 03-23-2022 Patient encounter procedure ALANNA WRIGHT DO [facility] Start: 03-09-2022 End: 03-09-[address] LARRY THOMAS DO [facility] Start: 02-23-2022 End: 02-23-2022 Patient encounter procedure ALANNA WRIGHT DO [facility] Start: 01-22-2022 End: 01-22-2022 Patient encounter procedure ALANNA WRIGHT DO [facility] Start: 12-25-2021 End: 12-25-2021 Emergency department patient visit INES DENNIS MD [facility] Start: 12-03-2021 End: 12-06-[address] KEVIN VIRGEN MD [facility] Start: 05-05-2021 End: 05-05-2021 Patient encounter procedure ALANNA WRIGHT DO [facility] Start: 12-11-2020 End: 12-11-2020 Patient encounter procedure SEAN POOLE MD [facility] Start: 03-01-2018 Patient encounter procedure [facility] Start: 01-17-2018 End: 01-17-2018 Patient encounter procedure Carla Dye MD Work Phone: [facility] Work Phone: Start: 05-18-2017 Patient encounter procedure [facility] Procedures Date Procedure Procedure Detail Performing Clinician [...] Date Care Activity Detail Author Start: 07-24-2024 [facility] Start: 02-08-2022 ADVANCE DIRECTIVE DISCUSSION ADVANCE DIRECTIVE DISCUSSION [facility] Start: 02-08-2022 DEPRESSION ASSESSMENT DEPRESSION ASSESSMENT [facility] Start: 08-10-2021 COVID-19 VACCINE (5 - Booster for Moderna series) COVID-19 VACCINE (5 - Booster for Moderna series) [facility] Start: 01-17-2018 End: 01-17-2018 Appointment Appointment [facility] Work Phone: Start: 09-23-2003 BONE DENSITY BONE DENSITY [facility] Start: 09-23-2003 PNEUMOCOCCAL: 65+ (1 - PCV) PNEUMOCOCCAL: 65+ (1 - PCV) [facility] Start: 1988 SHINGRIX VACCINE (1 of 2) SHINGRIX VACCINE (1 of 2) [facility] Start: 09-23-1983 DIABETES SCREEN DIABETES SCREEN [facility] Start: 1957 Urine microalbumin profile DTAP,TDAP,TD (1 - Tdap) [facility] Patient Education [facility] Work Phone: Patient referral [facility] Work Phone: Immunizations Immunization Date Immunization Notes Care Provider Fa cili 12-27-2022 SARS-CoV-2 (COVID-19 ) [id number] MAHAD LORENZO MD [facility] 11-05-2022 zoster vaccine recombinant MAHAD LORENZO MD [facility] 10-03-2022 influenza virus vacc ine, unspecified formulation MAHAD LORENZO MD [facility] 09-15-2022 pneumococcal 20-lisa nt conjugate vaccine MAHAD LORENZO MD [facility] 01-10-2022 influenza virus vacc ine, unspecified formulation MAHAD LORENZO MD [facility] 06-15-2021 SARS-CoV-2 (COVID-19 ) [id number] vaccine MAHAD LORENZO MD [facility] 12-12-2020 SARS-CoV-2 (COVID-19 ) mRNA-[id number] vaccine MAHAD LORENZO MD [facility] Comment on above: Result Comment: 2022: [id number] 10-22-2020 influenza virus vacc ine, unspecified formulation MAHAD LORENZO MD [facility] 03-28-2020 COVID-19, mRNA, LNP- S, PF, 100 mcg/ 0.5 mL dose; Translations: [Moderna COVID-19 Vaccine] SEAN POOLE MD [facility] 02-29-2020 COVID-19, mRNA, LNP- S, PF, 100 mcg/ 0.5 mL dose; Translations: [Moderna COVID-19 Vaccine] SEAN POOLE MD [facility] 10-12-2019 influenza virus vacc ine, unspecified formulation SEAN POOLE MD [facility] Comment on above: Result Comment: michael peck administered 10-11-2019 influenza virus vacc ine, unspecified formulation MAHAD LORENZO MD [facility] 10-11-2019 pneumococcal conjuga te vaccine, 13 valent SEAN POOLE MD [facility] 10-07-2018 influenza virus vacc ine, unspecified formulation SEAN POOLE MD [facility] 12-21-2017 influenza virus vacc ine, unspecified formulation SEAN POOLE MD [facility] 10-27-2016 influenza virus vacc ine, unspecified formulation SEAN POOLE MD [facility] 10-29-2015 influenza virus vacc ine, unspecified formulation SEAN POOLE MD [facility] 10-30-2014 influenza virus vacc ine, unspecified formulation SEAN POOLE MD [facility] 10-31-2013 influenza virus vacc ine, unspecified formulation SEAN POOLE MD [facility] 11-01-2012 influenza virus vacc ine, unspecified formulation SEAN POOLE MD [facility] 01-09-2005 pneumococcal polysaccharide vaccine, 23 valent SEAN POOLE MD [facility] No information available. Rigo Best AT [facility] Work Phone: Payers Date Payer Category Payer Self-pay [id number] 2017 Private Health Insurance [id number] 2017 Unknown [id number] 2003 Medicare [id number] 2003 Medicare [id number] 1938 Unknown [id number] 2.840.1.146185.3.579.2. 1938 Unknown [id number] 2..840.1.361811.3.579.2. 1938 Unknown [id number] 2.16.840.1.058247.3.579.2. 1938 Unknown [id number] 2.16.840.1.956874.3.579.2.62 1938 Unknown [id number] 2..840.1.147885.3.579.2. 1938 Unknown [id number] 2.16.840.1.617690.3.579.2.627 1938 Unknown [id number] 2..840.1.048194.3.579.2. 1938 Unknown [id number] 2..840.1.942017.3.579.2.62 1938 Unknown [id number] 2.840.1.166071.3.579.2. 1938 Unknown [id number] 2.840.1.005704.3.579.2. 1938 Unknown [id number] .840.1.023816.3.579.2. 1938 Unknown [id number] .840.1.836191.3.579.2. 1938 Unknown [id number] .840.1.876545.3.579.2. 1938 Unknown [id number] .840.1.601570.3.579.2. 1938 Unknown [id number] .840.1.908867.3.579.2. 1938 Unknown [id number] 840.1.936627.3.579.2. 1938 Unknown [id number] .840.1.174051.3.579.2.62 Medicare MEDICARE PART A B [id number] 1 [id number] Unknown [id number] 2.840.1.110311.3.579.2.462 Unknown [id number] 2.840.1.896442.3.579.2.462 Unknown [id number] 2.840.1.236661.3.579.2.462 Unknown [id number] 2.16.840.1.039281.3.579.2.462 Unknown [id number] 2.16.840.1.708453.3.579.2.462 Unknown [id number] 2.16.840.1.419733.3.579.2.462 Unknown [id number] 2.16.840.1.087853.3.579.2.462 Unknown [id number] 2.16.840.1.756220.3.579.2.462 Unknown [id number] 2.16.840.1.252030.3.579.2.462 Unknown [id number] 2.16.840.1.103455.3.579.2.462 Unknown [id number] Unknown [id number] Unknown [id number] [id number] Unknown [id number] [id number] Unknown [id number] [id number] Unknown [id number] [id number] Unknown [id number] [id number] Unknown [id number] [id number] Unknown [id number] [id number] Unknown [id number] [id number] Unknown [id number] 2.16.840.1.625445.3.579.2.462 Unknown [id number] [id number] Social History Date Type Detail Facility Start: 01-17-2018 End: 01-17-2018 Assertion Unknown if ever smoked [facility] Work Phone: Start: 04-07-2019 End: 08-26-2024 Never smoked tobacco (finding) [facility] Start: 04-06-2022 Tobacco use and exposure Smokeless tobacco non-user [facility] Start: 04-06-2022 Alcohol intake Current non-dr alliances consultant of alcohol (finding) [facility] Start: 1940 Sex Assigned At Not on file [facility] Start: 05-25-2013 End: 05-31-2024 Sex Female (finding) [facility] Start: 1940 Sex Assigned At Female [facility] Medical Equipment Procedure Code Equipment Code [...] gray q2hrs Performed Other: 7AM - 4PM [facility] 02-10-2024 Functional Status Financial gaston gement, Home management, Laundry, Meal preparation, Personal ADL, Shopping [facility] 02-10-2024 Functional Status Sup Jrerell Garcia [facility] 02-10-2024 Functional Status Identified as high risk, Door open, Non-Slip footwear, Room check performed [facility] 02-10-2024 [facility] Status Jerrell [facility] 02-10-2024 [facility] Functional Status Jerrell Garcia [facility] 01-21-2024 Functional Status Minimum assistance [facility] 01-21-2024 Functional Status Independent Jerrell Garcia [facility] 12-09-2023 Functional Status Minimum assistance [facility] 12-09-2023 Functional Status ID band on, Call device within reach, Bed in low position, Wheels locked, Upper/Half-Length side-rails up, Visitor at bedside, Safety level maintained [facility] 11-29-2023 Functional Status Up ad nazario [facility] 11-29-2023 Functional Status Standard Safet y ID band on, Call device within reach, Bed in low position, Wheels locked, Upper/Half-Length side-rails up, Visitor at bedside [facility] 06-19-2022 Functional Status Sensory Deficits None A [facility] 12-25-2021 Functional Status Independent Jerrell Garcia [facility] 12-06-2021 Functional Status None Jerrell Garcia [facility] 12-06-2021 Functional Status Room check performed [facility] 12-06-2021 Functional Status [facility] 12-06-2021 Functional Status Jerrell Garcia [facility] 12-05-2021 Functional Status Jerrell Garcia [facility] 12-05-2021 Functional Status Jerrell Garcia [facility] 12-05-2021 Functional Status Mod A 1 Jerrell Garcia [facility] 12-04-2021 Functional Status Single level home [facility] 12-04-2021 Functional Status Jerrell Garcia [facility] 12-04-2021 [facility] 12-04-[facility]21 Functional Status [facility] 12-04-2021 Functional Status [facility] 12-04-2021 Functional Status SCD On/Re-appl ied bilateral knee high [facility] 12-03-2021 Functional Status Ambulation in Room [facility] Mental Status Date Assessment Result Facility 02-10-2024 Mental Status Not oriented to time, Forgetful, Follows simple commands [facility] 02-09-[address] [facility] 02-09-[address] [facility] 01-21-2024 Mental Status Orientation Not oriented to situation, Forgetful [facility] 01-21-[address] [facility] 12-09-2023 Mental Status Orientation Oriented x 4 [facility] 12-09-[address] [facility] 11-29-2023 Mental Status Orientation Oriented x 4 [facility] 11-29-[address] [facility] 12-25-2021 Mental Status Orientation Oriented x 4 [facility] 12-06-2021 Mental Status Oriented x 4, Forgetful [facility] 12-06-2021 Mental Status [facility] 12-06-2021 Mental Status [facility] Clinical Notes 12-03-2021 to 07-24-2024 Note Date & Type Note Facility 07-24-2024 Discharge summary [facility] 07-24-2024 Radiology Diagnostic study note [facility] Imaging Services [address] [place], [place] [id number] HIP, UNI W/ Pelvis 2-3 Views MR#: [id number] Acct: [id number] Name: CT DALTON Rep #: [id number] : 1940 F 83 From: Jane Vance MD PCP: Dr. Jairon Medel MD Status: R EG ER Study:HIP, UNI W/ Pelvis 2-3 Views Date of Ex am: 07/24/24 Exam# [id number] Ordering Dr: Sharon Harry MD PROCEDURE: HIP, [...] Right hip moderate degenerative changes. [facility] CC: Dr. Jairon Medel MD; Dr. Jean Claude Harry MD ~ Striker Off: Signed [facility] 02-10-2024 Hospital Discharge instructions Patient Education 02/10/2024 15:03:52 Dementia, Awio-ik-Iqrq Dementia Dementia is a condition that affects [...] Follow these instructions at home: Medicines Take oeyd-zhh-xmwvzqa and prescription medicines only as told by [...] 01/07/2009 Document Revised: 04/11/2019 Document Reviewed: 04/11/2019 [employer] Patient Education 2020 [employer]. Follow Up Care 02/09/2024 19:37:05 With:LARRY THOMAS DO Address: [address] [place] [phone] When:02/16/2024 09:30:00 Comments:This is your post-hospital appointment. Follow-up as scheduled. [facility] 02-10-2024 Note Discharge Instructions Thank you for allowing [facility] to assist you with your healthcare needs. The following is important discharge information regarding your hospital visit. Your Care Team SUSY ALBRIGHT APRN-FIELD MANAGER Your Diagnosis (HFpEF) heart failure with preserved ejection fraction Dementia Weakness What to do next Scheduled Follow-Up Appointments Appointment Type When With Where Contact Information StatusPC OV 02/16/2024 09:30 AM EST LARRY THOMAS DO [address] [phone] Confirmed Follow Up Appointments Follow Up with LARRY THOMAS DO When:02/16/2024 09:30 AM EST Where:[address] [place] [phone] Additional Information: This is your post-hospital appointment. [...] may report side effects to FDA at 8-019-CUS-7433. What other drugs will affect memantine? Tell [...] may interact with memantine, including prescription and bcza-qsj-wszayyv medicines, vitamins, and herbal products. Not all [...] to ensure that the information provided by [employer]. ('[employer]') is accurate, up-to-date, and complete, but no guarantee is made to that effect. Drug information contained herein may be time sensitive. [employer] information has been compiled for use by healthcare practitioners and consumers in the [place] and therefore [employer] does not warrant that uses outside of the [place] are appropriate, unless specifically indicated otherwise. [employer] drug information does not endorse drugs, diagnose patients or recommend therapy. [employer] drug information is an informational resource designed [...] effective or appropriate for any given patient. [employer] does not assume any responsibility for any aspect of healthcare administered with the aid of information [employer] provides. The information contained herein is not intended to cover all possible uses, directions, precautions, warnings, drug interactions, allergic reactions, or adverse effects. If you have questions about the drugs you are taking, check with your doctor, nurse or pharmacist. Copyright 5866-4682 [employer]. Version: 5.01. Revision Date: 09/21/2022. Education Materials [...] Follow these instructions at home: Medicines Take yikk-pil-lxkrgpz and prescription medicines only as told by [...] 01/07/2009 Document Revised: 04/11/2019 Document Reviewed: 04/11/2019 [employer] Patient Education 2020 [employer]. Additional Information VACCINATE! IT SAVES LIVES! Members of the community who have not yet received the COVID-19 vaccine and would like to receive it can visit one of [facility] vaccine clinics. There are many vaccine clinic locations within the [facility]. For locations and available times, please visit https://gettheshot.coronavirus.[place].gov/. It is important to note that some COVID mobile vaccine clinics are held outdoors and may be canceled in rainy or stormy conditions. To learn more about pediatric vaccinations (ages 5-11), we invite you to visit the [facility] webpage. https://www.akronDakwaks.org/pag es/4055-Juyut-Ohcovpjkqmj-Frequent wu-Kryli-Fghiislhx.html To learn more about the COVID-19 vaccine, we invite you to visit the CDC website for a list of frequently asked questions.https://www.cdc.gov/armando navirus/2019-ncov/vaccines/faq.htm l [facility] Patient Portal Access Instructions: Stay connected with your healthcare team and access your personal medical information anytime with the [facility] Patient Portal. Please follow the directions below to create your [facility] account: 1.Access the email account you provided upon registration to the hospital/physician office.2.Look for an invitation email from [facility].3.Open the email and access the invitation link: Accept Invitation to [facility].4.Fill in the required alejandro to create your account. To access your account, visit [email or web address]. Click the blue button labeled Access Patient [...] you will allow to register on the [facility] Patient Portal for access to your information. You can also access the [facility] Patient Portal on the [employer]act[employer]where angelica. Simply click on Patient Portal and then log into your account. If you would like to receive a full copy of your medical records, please contact the [facility] Medical Records Department by calling [phone], Wednesday through Wednesday between 8 a.m. and [...] Call your local pharmacy or go to [email or web address] to find one close to you.3.Make use of household items: Use cat litter or old coffee grounds to dispose medications if other options are not available. Mix your drugs with these household products, seal them in an airtight container and throw it into the garbage. Call [facility]: [phone] to be sure your drugs can be [...] CHART COPY. Signatures Patient Education Materials Dementia, Zlsa-mc-Srpp Medication Leaflets memantine My discharge plan and instructions have been reviewed and explained to me and ISHA CAROLE A understand my current condition and have read and understand these discharge instructions. I have received a written copy of the plan/instructions. If I have questions, I am aware that I should contact my doctor. Patient/Dumper Signature: Date/Time: Relationship to Patient: ___ Witness Name/Signature: Date/Time: [facility] 02-10-2024 Evaluation + Plan note Extrac yamilet from: Title:History and Physical Author:SUSY ALBRIGHT APRN-FIELD MANAGER Date:02/10/24 1. Weakness 2. (HFpEF) heart failure [...] Date:02/16/2024 09:30:00 AM Scheduled Provider:LARRY THOMAS DO Location:[facility] Appointment Type:[facility] 01-02-2025 Note Date of Service 02/10/24 Chief Complaint patient called EMS with complaint of BLE swelling. patient poor historian but continues to report BLE swelling on arrival. also states that she feels weak. History of Present Illness 83 year old female with past medical history of dementia, urinary frequency, dizziness, breast cancer, CKD Stage 3, anemia, HLD, HFpEF. Patient presented to [facility] ED on 02/09/24 due to family [...] by SUSY ALBRIGHT on 02/10/2024 10:21 AM [facility]01-01-2025 Note* Exam Date Time Procedure Performing Provider Status 02/09/24 8:10 PM XR Chest 1 View EILEEN CHRISTINE DO; Arnaldo h (Verified) [id number] ORIGINAL EXAMINATION: ONE XRAY VIEW OF THE [...] 02/09/2024 9:08:10 PM Ordering Provider: TRIXIE BARONE [facility]01-01-2025 Note* Exam Date Time Procedure Performing Provider Status 02/09/24 7:59 PM EKG [ED AOH] - CV MD TRIXIE BARONE MD; Auth (Verified) ECG Final Report Sinus rhythm LVH by voltage Inferior infarct, old Anterior Q waves, possibly due to LVH Electronic Signature: MD TRIXIE BARONE MD 02/09/2024 20:03:00 [facility]12-13-2024 Hospital Discharge instructions Patient Education 01/21/2024 [...] mid-urethra. Front view of female urinary tract. 1158-95[address] [employer]. [address] [place] [address]. All rights reserved. This information is not intended as a substitute for professional medical care. Always follow yourhealthcare professional's instructions. Follow Up Care 01/21/2024 09:33:55 With:LARRY THOMAS DO Address: [address] [place] [address] [place] [address]- [phone] When:2-4 days [facility] 12-13-2024 Note Discharge Instructions Thank you for allowing [facility] to assist you with your healthcare needs. The following is importantdischarge information regarding your hospital visit. Diagnosis from Today's Visit Bladder pain What to Do Next Instructions from Your Care Team No qualifying data available. Post Acute Orders No qualifying data available. You Need to Schedule the Following Appointments Follow Up with LARRY THOMAS DO When:Within 2-4 days Where:[address] [place], [place] [address] [place] [address]- [phone] Allergies NKA Medications Please ask your primary [...] mid-urethra. Front view of female urinary tract. 7528-0517 [employer]. [address] [place] [address], [place] [address]. All rights reserved. This information is not intended as a substitute for professional medical care. Always follow yourhealthcare professional's instructions. Additional Information VACCINATE! IT SAVES LIVES! Members of the community who have not yet received the COVID-19 vaccine and would like to receive it can visit one of [facility] vaccine clinics. There are many vaccine clinic locations within the [facility]. For locations and available times, please visit www.gettheshot.coronavirus.[place].gov/. It is important to note that some COVID mobile vaccine clinics are held outdoors and may be canceled in rainy or stormy conditions. To learn more about pediatric vaccinations (ages 5-11), we invite you to visit the [facility] webpage. https://www.[facility].org/pages/6151-Ptjtu-Fbdfuktybcj-Kgizhbnlnl-Rhhxu-Kir stions.htmlTo learn more about the COVID-19 vaccine, we invite you to visit the CDC website for a list of frequently asked questions. https://www.cdc.gov/coronavirus/2019-ncov/vaccines/faq.html [facility] Patient Portal Access Instructions: Stay connected with your healthcare team and access your personal medical information anytime with the [facility] Patient Portal. If you would like a full copy of your medical records please contact the [facility] Medical Records Department Wednesday through Wednesday between 8a.m. and 4:30p.m. Please follow the directions below to access the portal: 1.Access the email account you provided upon registration to the [facility].2.Look for an invitation email from [facility].3.Open the email and access the invitation link: Accept Invitation to [facility]4.Fill in the required alejandro to create your [...] you will allow to register on the [facility] Patient Portal for access to your information. You can also access the [facility] Patient Portal on the Mapori angelica. Simply click on Health Records under Ovelin and then click on the Mangia logo. HOW TO SAFELY DISPOSE OF PRESCRIPTION [...] Call your local pharmacy or go to [email or web address] to find one close to you.3.Make use of household items: Use cat litter or old coffee grounds to dispose medications if other options arenot available. Mix your drugs with these household products, seal them in an airtight container andthrow it into the garbage. Call [facility]: [phone] to be sure your drugs can be [...] aware that I should contact my doctor. Patient/Dumper Signature: Date/Time: Relationship to Patient: Witness Name/Signature: Date/Time: [facility]11-12-2024 Note ORIGINAL EXAMINATION: AP lateral obliques [...] Sign Date: 12/21/2023 4:34:05 PM Ordering Provider: [facility]11-12-2024 Note ORIGINAL EXAMINATION: TWO XRAY VIEWS [...] Sign Date: 12/21/2023 4:21:17 PM Ordering Provider: [facility]11-09-2024 Note. MICRO - Microbiology PROCEDURE: Urine [...] Locations *1: This test was performed at: [facility], [address] [place] [address], [phone] , [facility]10-31-2024 Hospital Discharge instructions Patient Education 12/09/2023 [...] mid-urethra. Front view of female urinary tract. 8088-0926 [employer]. [address] [place] [address]. All rights reserved. This information is not intended as a substitute for professional medical care. Always follow yourhealthcare professional's instructions. Follow Up Care 12/09/2023 08:33:51 With:LARRY THOMAS DO Address: [address] [place] [phone] When:2-4 days [facility] 10-31-2024 Note Discharge Instructions Thank you for allowing [facility] to assist you with your healthcare needs. The following is importantdischarge information regarding your hospital visit. Diagnosis from Today's Visit Urinary frequency What to Do Next Instructions from Your Care Team No qualifying data available. Post Acute Orders No qualifying data available. You Need to Schedule the Following Appointments Follow Up with LARRY THOMAS DO When:Within 2-4 days Where:[address] [place] [phone] Allergies NKA Medications Please ask your primary [...] mid-urethra. Front view of female urinary tract. 3719-9029 [employer]. [address] [place] [address], [place] [address]. All rights reserved. This information is not intended as a substitute for professional medical care. Always follow yourhealthcare professional's instructions. Additional Information VACCINATE! IT SAVES LIVES! Members of the community who have not yet received the COVID-19 vaccine and would like to receive it can visit one of [facility] vaccine clinics. There are many vaccine clinic locations within the [facility]. For locations and available times, please visit www.gettheshot.coronavirus.[place].gov/. It is important to note that some COVID mobile vaccine clinics are held outdoors and may be canceled in rainy or stormy conditions. To learn more about pediatric vaccinations (ages 5-11), we invite you to visit the [facility] webpage. https://www.[facility].org/pages/5390-Qlwcr-Toxjrptdlhi-Fqgxgnertk-Ledlm-Uzb stions.htmlTo learn more about the COVID-19 vaccine, we invite you to visit the CDC website for a list of frequently asked questions. https://www.cdc.gov/coronavirus/2019-ncov/vaccines/faq.html [facility] Patient Portal Access Instructions: Stay connected with your healthcare team and access your personal medical information anytime with the [facility] Patient Portal. If you would like a full copy of your medical records please contact the [facility] Medical Records Department Wednesday through Wednesday between 8a.m. and 4:30p.m. Please follow the directions below to access the portal: 1.Access the email account you provided upon registration to the [facility].2.Look for an invitation email from [facility].3.Open the email and access the invitation link: Accept Invitation to [facility]4.Fill in the required alejandro to create your account. Sign into [email or web address] with your username and password that you [...] you will allow to register on the [facility] Patient Portal for access to your information. You can also access the [facility] Patient Portal on the Amanda Huff [employer]. Simply click on Health Records under Ovelin and then click on the Mangia logo. HOW TO SAFELY DISPOSE OF PRESCRIPTION [...] Call your local pharmacy or go to http://[email or web address] to find one close to you.3.Make use of household items: Use cat litter or old coffee grounds to dispose medications if other options arenot available. Mix your drugs with these household products, seal them in an airtight container andthrow it into the garbage. Call [facility]: [phone] to be sure your drugs can be [...] aware that I should contact my doctor. Patient/Dumper Signature: Date/Time: Relationship to Patient: Witness Name/Signature: Date/Time: [facility] Jerrell [id number] Hospital Discharge instructions Patient Education 11/29/2023 12:04:12 [...] or swelling over your back or spine 6317-9999 [employer]. [address] [place] [address]. All rights reserved. This information is not intended as a substitute for professional medical care. Always follow yourhealthcare professional's instructions. Follow Up Care 11/29/2023 08:56:34 With:Go to emergency room if symptoms worsen Address:Unknown When:2-4 days With:LARRY THOMAS DO Address: [address] [facility] [place] [phone] When:2-4 days [facility] 10-21-2024 Note Discharge Instructions Thank you for allowing [facility] to assist you with your healthcare needs. [...] with LARRY THOMAS DO When:Within 2-4 days Where:[address] [place] [address] [place] [phone] Allergies NKA Medications Please ask your primary [...] or swelling over your back or spine 8429-8200 [employer]. [address] [place] [address]. All rights reserved. This information is not intended as a substitute for professional medical care. Always follow yourhealthcare professional's instructions. Additional Information VACCINATE! IT SAVES LIVES! Members of the community who have not yet received the COVID-19 vaccine and would like to receive it can visit one of [facility] vaccine clinics. There are many vaccine clinic locations within the [facility]. For locations and available times, please visit www.gettheshot.coronavirus.[place].gov/. It is important to note that some COVID mobile vaccine clinics are held outdoors and may be canceled in rainy or stormy conditions. To learn more about pediatric vaccinations (ages 5-11), we invite you to visit the [facility] webpage. https://www.[facility].org/pages/7857-Yxkgg-Iduwctacbpc-Qdzyeyyizb-Oxrqi-Rki stions.htmlTo learn more about the COVID-19 vaccine, we invite you to visit the CDC website for a list of frequently asked questions. https://www.cdc.gov/coronavirus/2019-ncov/vaccines/faq.html [facility] Patient Portal Access Instructions: Stay connected with your healthcare team and access your personal medical information anytime with the [facility] Patient Portal. If you would like a full copy of your medical records please contact the [facility] [facility] Medical Records Department Wednesday through Wednesday between 8a.m. and 4:30p.m. Please follow the directions below to access the portal: 1.Access the email account you provided upon registration to the [facility].2.Look for an invitation email from [facility].3.Open the email and access the invitation link: Accept Invitation to [facility]4.Fill in the required alejandro to create your account. Sign into [email or web address] with your username and password that you [...] you will allow to register on the [facility] Patient Portal for access to your information. You can also access the [facility] Patient Portal on the Mapori angelica. Simply click on Health Records under [employer]er[employer] and then click on the Mangia logo. HOW TO SAFELY DISPOSE OF PRESCRIPTION [...] Call your local pharmacy or go to [email or web address] to find one close to you.3.Make use of household items: Use cat litter or old coffee grounds to dispose medications if other options arenot available. Mix your drugs with these household products, seal them in an airtight container andthrow it into the garbage. Call [facility]: [phone] to be sure your drugs can be [...] aware that I should contact my doctor. Patient/Dumper Signature: Date/Time: Relationship to Patient: Witness Name/Signature: Date/Time: [facility]10-21-2024 Note ORIGINAL HISTORY: Pain COMPARISON: No [...] 11/29/2023 11:51:51 AM Ordering Provider: SONNY [facility]03-06-2024 Note ORIGINAL EXAMINATION: CT OF THE HEAD [...] Date: 04/14/2023 10:35:22 AM Ordering Provider: MAHAD [facility]04-26-2023 Miscellaneous Notes* Telephone Encounter - Brenton Jennings RN - 06/03/2022 11:26 AM EDT Received a request from [facility] for all of Ct's left breast cancer treatment medical records. Faxed the request to medical records on [facility], fax confirmation sheet received. Brenton Jennings RN [facility] Note ORIGINAL EXAMINATION: ULTRASOUND OF [...] 04/15/2022 10:15:33 AM Ordering Provider: LARRY THOMAS [facility]03-08-2023 Note ORIGINAL EXAMINATION: ULTRASOUND OF THE [...] Sign Date: 04/15/2022 10:15:33 AM Ordering Provider: [facility]02-28-2023 NoteHNO ID: [id number] Author: Paula Alaniz MD Service: ? Author [...] needle core breast biopsies on 03/23/2022 at [facility]. Findings of fat necrosis, inflammation and dense [...] cancer Kidney Disease Sister Heart disease Brother IA The review of systems data was entered by the nurse and reviewed by ny Nursing Notes: Mini Brooke LPN 04/06/2022 9:50 [...] of skin c (more content not included)... [facility]02-28-2023 History of Present illness Narrative* Paula Alaniz [...] needle core breast biopsies on 03/23/2022 at [facility]. Findings of fat necrosis, inflammation and dense [...] cancer Kidney Disease Sister Heart disease Brother IA The review of systems data was entered by the nurse and reviewed by ny Nursing Notes: Mini Brooke LPN 04/06/2022 9:50 [...] her studies and testing were done at [facility], I have recommended that she proceed with her evaluation/treatment there. The breast radiologists there have recommended wire localization lumpectomy of the left breast. I have told her that I could offer her the same but it would be at [facility]. She states thatshe would prefer [facility] as it is closer to home. The [...] Low Paula Alaniz MD documented in [facility]02-27-[facility]23 Nurse Note* Mini Brooke, MOLD SETTER - 04/06/2022 9:47 AM EST REVIEW OF [...] ago Mini Brooke LPN documented in [facility]12-[facility]2022 Note [place]IGIN[place]: [place] [address] PROCEDURE FOR: CT DALTON [address] [place], [place] [id number] Home: PID#: [id number] Exam#: [id number] : 1940 Age: 81 TO: ALANNA WRIGHT DO [facility] [place] [address] Fax: NO FAX EXAMINATION: ULTRASOUND OF THE [...] ALANNA WRIGHT CLINICAL: MAMMOGRAPHIC DENSITY LEFT BREAST. 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 It may be described as lightheadedness, spinning, or feeling like you are going to faint. Dizziness can have many causes. Be sure to tell the healthcare provider about: All medicines you take, including prescription, pskh-ncm-drmyqrf, herbs, and supplements Any other symptoms you [...] Chest, arm, neck, back, or jaw pain [phone] [employer] [place] [address]. All rights reserved. This information is not [...] medicine was given, you may use an hoam-enx-qjvtqgf product made for clearingearwax (such as Debrox or Murine Earwax Drops). These contain carbamide peroxide and are available jaqq-ghc-vwrvliy. Lie down with the blocked ear facing [...] ear Headache, neck pain or stiff neck 7797-[address] [employer] [place] [address]. All rights reserved. This information is not intended as a substitute for professional medical care. Always follow yourhealthcare professional's instructions. Follow Up Care 12/25/2021 15:48:16 With:ALANNA WRIGHT DO Address: [address] [place] [address] [place] [phone] When:2-4 days [facility] 11-17-2022 Note Discharge Instructions Thank you for allowing [facility] to assist you with your healthcare needs. [...] WRIGHT DO When Within 2-4 days Where: [facility] [place] [address]- [phone] Allergies NKA Medications Please ask your primary [...] about: All medicines you take, including prescription, bxon-dzt-xrjnigl, herbs, and supplements Any other symptoms you [...] Chest, arm, neck, back, or jaw pain [phone] [employer] [place] [address]. All rights reserved. This information is not [...] medicine was given, you may use an bqpg-xqa-enhfsdc product made for clearingearwax (such as Debrox or Murine Earwax Drops). These contain carbamide peroxide and are available vyfl-vhg-pigvpgd. Lie down with the blocked ear facing [...] ear Headache, neck pain or stiff neck 9560-9298 [employer]. [address] [place] [address]. All rights reserved. This information is not intended as a substitute for professional medical care. Always follow yourhealthcare professional's instructions. Additional Information VACCINATE! IT SAVES LIVES! Members of the community who have not yet received the COVID-19 vaccine and would like to receive it can visit one of [facility] vaccine clinics. There are many vaccine clinic locations within the [facility]. For locations and available times, please visit www.gettheshot.coronavirus.[place].org. It is important to note that some COVID mobile vaccine clinics are held outdoors and may be canceled in rainy orstormy conditions. To learn more about pediatric vaccinations (ages 5-11), we invite you to visit the [facility] webpage. https://www.[facility].org/pages/8891-Uujyc-Iliwnwzbrvr-Sutzrqfoeh-Txzdn-Acn stions.htmlTo learn more about the COVID-19 vaccine, we invite you to visit the Mangia website for a list of frequently asked questions. https://Lattice Voice TechnologiesLenovo/assets/Woswlzzl-bvo-Ketfmxky/jhhqm-Emaewnm-Owqzjpaqtd _Asked-Questions.pdf [facility] Patient Portal Access Instructions: Stay connected with your healthcare team and access your personal medical information anytime with the [facility] Patient Portal. If you would like a full copy of your medical records please contact the [facility] Medical Records Department Wednesday through Wednesday between 8a.m. and 4:30p.m. Please follow the directions below to access the portal: 1.Access the email account you provided upon registration to the [facility].2.Look for an invitation email from [facility].3.Open the email and access the invitation link: Accept Invitation to [facility].Fill in the required alejandro to create your account. Sign into [email or web address] with your username and password that you [...] you will allow to register on the [facility] Patient Portal for access to your information. You can also access the [facility] Patient Portal on the Mapori angelica. Simply click on Health Records under [employer] and then click on the Jerrell logo. [...] Call your local pharmacy or go to http://bit.Marcadia Biotech/7D6Mb4o to find one close to you.3.Make use of household items: Use cat litter or old coffee grounds to dispose medications if other options arenot available. Mix your drugs with these household products, seal them in an airtight container andthrow it into the garbage. Call [facility]: [phone] to be sure your drugs can be [...] aware that I should contact my doctor. Patient/Dumper Signature: Date/Time: Relationship to Patient: Witness Name/Signature: Date/Time: [facility]10-29-2022 Hospital Discharge instructions Patient Education 12/06/2021 14:31:46 Dizziness, Wkka-el-Puzb Dizziness Dizziness is a common problem. It [...] balance is fine. 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 Take gxip-gdq-pvvmutz and prescription medicines only as told by [...] 01/14/2012 Document Revised: 01/28/2018 Document Reviewed: 02/11/2017 [employer] Patient Education 2020 [employer]enue. 12/06/2021 14:31:38 Fall Prevention and Home Safety, Lasu-bm-Xnpq Fall Prevention and Home Safety Falls cause [...] Document Reviewed: 04/26/2012 ExitCare Patient Information 2015 [employer]Food. This information is not intended to replace advicegiven to you by your health care provider. Make sure you discuss any questions you have with your health care provider. Follow Up Care 12/03/2021 14:18:30 With:[facility], Address:Unknown When:1-2 days With:ALANNA WRIGHT DO Address: [address] [place] [address]- When:1-2 days Comments:Please call the office to schedule a follow up appointment [facility] 10-29-2022 Note Discharge Instructions Thank you for allowing [facility] to assist you with your healthcare needs. [...] Bilateral w/ Fer 12/12/2021 03:00 PM [facility] [place] [facility] Follow Up Appointments Follow Up with [facility], When Within 1-2 days Follow Up with ALANNA WRIGHT DO When Within 1-2 days Why: Please call the office to schedule a follow up appointment Where: [address] [place] [phone]- The Following Activity and Diet Have Been [...] balance is fine. 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 Take cvbu-vdw-dmshqen and prescription medicines only as told by [...] 01/14/2012 Document Revised: 01/28/2018 Document Reviewed: 02/11/2017 [employer] Patient Education 2020 [employer]. Fall Prevention and Home Safety Falls [...] Document Reviewed: 04/26/2012 ExitCare Patient Information 2015 [employer]Food. This information is not intended to replace advicegiven to you by your health care provider. Make sure you discuss any questions you have with your health care provider. Additional Information VACCINATE! IT SAVES LIVES! Members of the community who have not yet received the COVID-19 vaccine and would like to receive it can visit one of [facility] vaccine clinics. There are many vaccine clinic locations within the [facility]. For locations and available times, please visit https://gettheshot.coronavirus.[place].gov/. It is important to note that some COVID mobile vaccine clinics are held outdoors and may be canceled in rainy or stormy conditions. To learn more about pediatric vaccinations (ages 5-11), we invite you to visit the [facility] webpage. https://www.[facility].org/pages/0536-Sgqvj-Gdwawtefmnp-Mikmzoedkc-Kdtit-Qeb stions.htmlTo learn more about the COVID-19 vaccine, we invite you to visit the [facility] website for a list of frequently asked questions. https://[email or web address]/assets/Kgkiiltb-bog-Yklofdjc/hseja-Ngnqjff-Kvgpmvlsug _Asked-Questions.pdf [facility] Patient Portal Access Instructions: Stay connected with your healthcare team and access your personal medical information anytime with the [facility] Patient Portal.If you would like a full copy of your medical records, please contact the [facility] Medical Records Department, Wednesday through Wednesday between 8a.m. and 4:30p.m. Please follow the directions below to access the portal: 1.Access the email account you provided upon registration to the hospital.2.Look for an invitation email from [facility].3.Open the email and access the invitation link: Accept Invitation to [facility].Fill in the required alejandro to create your [...] you will allow to register on the [facility] Patient Portal for access to your information. You can also access the [facility] Patient Portal on the Amanda Huff [employer]BA [employer]. Simply click on Health Records under Ovelin and then click on the Jerrell logo. [...] Call your local pharmacy or go to http://Miiix.Marcadia [employer]otech/0D5Bw4v to find one close to you.3.Make use of household items: Use cat litter or old coffee grounds to dispose medications if other options arenot available. Mix your drugs with these household products, seal them in an airtight container andthrow it into the garbage. Call [facility]: [phone] to be sure your drugs can be [...] CHART COPY. Signatures Patient Education Materials Dizziness, Sfxt-hd-Ezoy Fall Prevention and Home Safety, Cwes-vl-Kpkg Medication Leaflets My discharge plan and instructions have been reviewed and explained to me and I,CT DALTON understand my current condition and have read and understand these discharge instructions. I have received a written copy of the plan/instructions. If I have questions, I am aware that I should contact my doctor. Patient/Dumper Signature: Date/Time: Relationship to Patient: Witness Name/Signature: Date/Time: [id number] Note Discharge Instructions Thank you for allowing [facility] to assist you with your healthcare needs. [...] Bilateral w/ Fer 12/12/2021 03:00 PM EDT [place] [facility] Follow Up Appointments Follow Up with [facility], When Within 1-2 days Follow Up with ALANNA WRIGHT DO When Within 1-2 days Why: Please call the office to schedule a follow up appointment Where: [facility] [place] [address]- The Following Activity and Diet Have Been [...] to receive it can visit one of [facility] vaccine clinics. There are many vaccine clinic locations within the [facility]. For locations and available times, please visit https://gettheshot.coronavirus.[place].gov/. It is important to note that some COVID mobile vaccine clinics are held outdoors and may be canceled in rainy or stormy conditions. To learn more about pediatric vaccinations (ages 5-11), we invite you to visit the [facility] webpage. https://www.[facility].org/pages/9972-Bntgv-Judsxxfslqb-Fwrrhirzxz-Vdyco-Mft stions.htmlTo learn more about the COVID-19 vaccine, we invite you to visit the [facility] website for a list of frequently asked questions. [email or web address]/assets/Rxxbkycj-cgy-Pfvkikpa/eswef-Jiktxip-Sqgthqbeoi _Asked-Questions.pdf [facility] Patient Portal Access Instructions: Stay connected with your healthcare team and access your personal medical information anytime with the [facility] Patient Portal.If you would like a full copy of your medical records, please contact the [facility] Medical Records Department, Wednesday through Wednesday between 8a.m. and 4:30p.m. Please follow the directions below to access the portal: 1.Access the email account you provided upon registration to the [facility].2.Look for an invitation email from [facility].3.Open the email and access the invitation link: Accept Invitation to [facility]4.Fill in the required alejandro to create your account. Sign into www.[email or web address] with your username and password that you [...] you will allow to register on the [facility] Patient Portal for access to your information. You can also access the [facility] Patient Portal on the Amanda Huff [employer]. Simply click on Health Records under Ovelin and then click on the Mangia logo. HOW TO SAFELY DISPOSE OF PRESCRIPTION [...] Call your local pharmacy or go to [email or web address] [email or web address] to find one close to you.3.Make use of household items: Use cat litter or old coffee grounds to dispose medications if other options arenot available. Mix your drugs with these household products, seal them in an airtight container andthrow it into the garbage. Call [facility]: [phone] to be sure your drugs can be [...] aware that I should contact my doctor. Patient/Dumper Signature: Date/Time: Relationship to Patient: Witness Name/Signature: Date/Time: [id number] Discharge summary Date of Service 12/06/21 Discharge Diagnosis 1. Unsteady gait (R26.81 - ICD-10-CM) 2. Dizziness (R42 - ICD-10-CM) Dizziness ([id number] - PNED) HTN - Hypertension ([id number] - PNED) Additional Orders: Ordered: atenolol 25 mg oral tablet,Dose : 25 mg = 1 tab(s), Oral, qDay, # 30 tab(s), 0 Refill(s), Pharmacy: [facility]/pharmacy #[id number], 160, cm, 12/03/21 21:46:00 EDT, Height [...] CT head, chest x-ray, MRI brain, TTE, Sabattus- Hallpike unremarkable.ECG showed LBBB, no prior EKG [...] 100 mg daily, hydralazine 25 mg daily, twujpmmtuvqxgsytltk57 mg daily, lisinopril 20 mg daily. In [...] to schedule a follow up appointment Where: [facility] [place] [address]- Follow Up Appointments No qualifying data available. Follow Up Labs/Studies Discharge Labs No Follow-up Labs Discharge Studies No Follow-up Studies Discharge Diet No qualifying data available. Discharge Activity No qualifying data available. Readmission Risk/Palliative Score No qualifying data available. Digitally Signed by CODY RILEY MD on 12/06/2021 11:43 AM [facility] [id number] Discharge summary Date of Service 12/06/21 Discharge Diagnosis 1. Unsteady gait (R26.81 - ICD-10-CM) 2. Dizziness (R42 - ICD-10-CM) Dizziness ([id number] - PNED) HTN - Hypertension ([id number] - PNED) Additional Orders: Ordered: atenolol 25 mg oral tablet,Dose : 25 mg = 1 tab(s), Oral, qDay, # 30 tab(s), 0 Refill(s), Pharmacy: [facility]/pharmacy #[id number], 160, cm, 12/03/21 21:46:00 EDT, Height [...] CT head, chest x-ray, MRI brain, TTE, Sabattus- Hallpike unremarkable.ECG showed LBBB, no prior EKG [...] 100 mg daily, hydralazine 25 mg daily, ribrgsnqlmvyhoyqxko99 mg daily, lisinopril 20 mg daily. In [...] to schedule a follow up appointment Where: [address] [place] [address] [place] [address]- Follow Up Appointments No qualifying data available. Follow Up Labs/Studies Discharge Labs No Follow-up Labs Discharge Studies No Follow-up Studies Discharge Diet No qualifying data available. Discharge Activity No qualifying data available. Readmission Risk/Palliative Score No qualifying data available. Digitally Signed by CODY IRLEY MD on 12/06/2021 11:43 AM [facility] CenterHkdvybsl95-06-7920 Note Chief Complaint Transition plan Transitional Action Points Currently is transition over to [facility] in [place] is able to accept Patient echo explained [...] are recommending SNF. She was excepted by [facility] in [place], will require COVID screen prior to transfer. 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 Sabattus-Hallpike was performed in ED documented asnegative. Patient was transfer from [place] to [facility] for further cardiovascular work-up. Orthostatics performed and [...] Zara no answer, called patient's son Ang [phone] Who states that patient's mental status has [...] FRIEDA HOLLAND MD on 12/05/2021 06:41 PM [facility] CenterBzvgvcpe93-72-0212 Note ORIGINAL EXAMINATION: TWO XRAY VIEWS OF [...] Date: 12/06/2021 12:06:38 AM Ordering Provider: FRIEDA HOLLANDSycamore Medical [id number] Note ORIGINAL EXAMINATION: MR Brain with and [...] pathology. 2. Moderate parenchymal volume loss and ften-gz-rrxavejh chronic microvascular white matter ischemic disease. Interpreted by: Alanna Chin MD Preliminary Report By: Alanna Chin MD Electronically signed By Alanna Chin MD Dictated Date: 12/05/2021 1:36:40 PM Prelim Date: 12/05/2021 1:40:15 PM Sign Date: 12/05/2021 1:40:15 PM Ordering Provider: [facility]10-28-2022 Note ORIGINAL EXAMINATION: MR Brain with [...] pathology. 2. Moderate parenchymal volume loss and gllu-nx-yqewmeia chronic microvascular white matter ischemic disease. Interpreted by: Alanna Chin MD Preliminary Report By: Alanna Chin MD Electronically signed By Alanna Chin MD Dictated Date: 12/05/2021 1:36:40 PM Prelim Date: 12/05/2021 1:40:15 PM Sign Date: 12/05/2021 1:40:15 PM Ordering Provider: [facility]10-28-2022 Note Date 12/05/2021 Chief complaint Transition [...] Physical therapy notes on 12/04 recommending SNF. 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 Patient was transfer from [place] to [facility] for further cardiovascular work-up. Orthostatics performed and negative. On review of telemetry patient with episodes of bradycardia will decre ase atenolol. Patient ordered for MRI TTE and carotid duplex. PT/OT evaluation pending. Patient seen and examined this morning Patient does appear to have advanced dementia She does know that she is in [place] but speaks in a roundabout way about [...] FRIEDA HOLLAND MD on 12/04/2021 03:40 PM [id number] Note Chief Complaint Transition Plan. 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 Patient was accepted asa transfer from [place] emergency department by my colleague. 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 Family history: Mother: High blood [...] Rate18(DEC 03 21:30)16(DEC 03 14:53)20(DEC 03 14:26) [id number](DEC 03 21:30)136(DEC 03 21:30)H 187(DEC 03 16:20) [...] Appearance (POC): Clear (12/03/21 16:12:00) Urine Specific Trinidad (POC): <=1.005 Abnormal (12/03/21 16:12:00) Urine Glucose [...] Patient was accepted as a transfer from [facility] emergency department by my colleague on [...] ANA WILSON MD on 12/03/2021 09:55 PM [id number] Note ORIGINAL EXAMINATION: CT OF THE HEAD [...] 12/03/2021 4:02:30 PM Ordering Provider: BLANCA ARRIETA [id number] Note ORIGINAL EXAMINATION: CT OF THE HEAD [...] Interpreted by: Tristen Sandhu Preliminary Report By: Tritsen Sandhu Electronically signed By Tristen Sandhu Dictated Date: 12/03/2021 4:00:37 PM Prelim Date: 12/03/2021 4:02:30 PM Sign Date: 12/03/2021 4:02:30 PM Ordering Provider: [facility]10-26-2022 Evaluation + Plan noteExtracted from: Title:Clinical Document Author:ANA WILSON MD Date:12/03/21 [facility] Hospitalist History and Physical Date of Admission: 12/03/2021 Chief complaint: Dizziness History of present illness: History is taken from talking with the patient. Patient was accepted as a transfer from [place] emergency department by my colleague. 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 Family history: Mother: High blood [...] Rate18(DEC 03 21:30)16(DEC 03 14:53)20(DEC 03 14:26) [id number](DEC 03 21:30)136(DEC 03 21:30)H 187(DEC 03 16:20) [...] Appearance (POC): Clear (12/03/21 16:12:00) Urine Specific Trinidad (POC): <=1.005 Abnormal (12/03/21 16:12:00) Urine Glucose [...] Patient was accepted as a transfer from [facility] emergency department by my colleague on [...] MA Mammo Screening Bilateral w/ Fer 12/12/21 [facility] Discharge summary Author Jean Claude Harry [facility] Note Date/Time July 24, 2024 3:52 am [facility] Medical Records Department [address] [place] [address] Emergency Department Summary 07/24/24 MR#: [id number] Acct: [id number] Name: CT DALTON Rep #:[id number] : 1940 83 From: Jean Claude Harry [...] mg PO DAILY 04/20/17 04/27/17 08:00 History pcigxqifpxxm-Xo-joit-minerals 1 ea PO DAILY 04/20/17 U nknown [...] range of motion. Upper extremities nontender normal insole rounder strength. Neurologically she is awake and alert. [...] Right hip moderate degenerative changes. Reading Location: [place] [address] Right hip and pelvis x-ray, 3 views, [...] obviously lying in bed. Tylenol for pain. Assonet as needed for pain also. Print Language: Romanian Disposition Disposition: Home, Self Care What to do if you have Problems For any increased pain, shortness of breath, bleeding, nausea or vomiting, chestpain, or any unexpected problems, contact your Primary Care Provider. Call [facility] ([phone]) or report to the closest Emergency Room. Call 911 if necessary. 07/24/24351 <Electronically signed by Jean Claude Harry MD> Cosigner Signature (if applicable): CC: Dr. Jiaron Medel MD ~ Signed [facility] Work Phone: Evaluation + Plan note Future Appointments Appointment Date:05/05/2021 09:00:00 AM Scheduled Provider:ALANNA WRIGHT DO Location:[facility] Appointment Type:PC OV [facility] Evaluation + Plan note Future Appointments Appointment Date:11/06/2021 08:30:00 AM Scheduled Provider:ALANNA WRIGHT DO Location:[facility] Appointment Type:PC Wellness Medicare with Labs Future Scheduled Tests Radiology* XR Humerus Minimum 2 Views Right 05/05/21 [facility] Evaluation + Plan note Future Appointments Appointment Date:01/15/2022 02:00:00 PM Scheduled Provider: Location:[facility] Appointment Type:MA Mammogram Screening Bilateral w/ Fer Appointment Date:02/25/2022 10:00:00 AM Scheduled Provider:LARRY THOMAS DO Location:[facility] Appointment Type:PC CYLINDER TESTER Appointment Date:03/13/2022 10:30:00 AM Scheduled Provider:ALANNA WRIGHT DO Location:[facility] [place] Appointment Type:PC OV Future Scheduled Tests Radiology* MA Mammo Screening Bilateral w/ Fer 01/15/22 [facility] Evaluation + Plan note Future Appointments Appointment Date:02/25/2022 10:00:00 AM Scheduled Provider:LARRY THOMAS DO Location:[facility] Appointment Type:PC CYLINDER TESTER Appointment Date:03/13/2022 10:30:00 AM Scheduled Provider:ALANNA WRIGHT DO Location:[facility] Appointment Type:PC OV Future Scheduled Tests Radiology* US Biopsy Breast Left 1st Lesion 01/22/22 [facility] Evaluation + Plan note Future Appointments Appointment Date:03/05/2022 10:00:00 AM Scheduled Provider:LARRY THOMAS DO Location:[facility] Appointment Type:PC CYLINDER TESTER Appointment Date:03/13/2022 10:30:00 AM Scheduled Provider:ALANNA WRIGHT DO Location:[facility] Appointment Type:PC OV Appointment Date:03/23/2022 01:00:00 PM Scheduled Provider: Location:[facility] Appointment Type:US Biopsy Breast Left 1st Lesion Future Scheduled Tests Radiology* US Biopsy Breast Left 1st Lesion 03/23/22 [facility] evaluation + Plan note Future Appointments [...] 1st Lesion 03/23/22 * US Renal 03/09/22 [facility] Evaluation + Plan note Future Appointments Appointment Date:04/16/2022 04:30:00 PM Scheduled Provider:LARRY THOMAS DO Location:[facility] Appointment Type:PC OV Future Scheduled Tests Laboratory* Hepatic Function Panel 04/13/22 Radiology* US Renal 03/09/22 [facility] evaluation + Plan note Future Appointments Appointment Date:04/15/2022 07:30:00 AM Scheduled Provider: Location:[facility] Appointment Type:US Renal Appointment Date:04/16/2022 04:30:00 PM Scheduled Provider:LARRY THOMAS DO Location:[facility] Appointment Type:PC OV Appointment Date:05/28/2022 10:00:00 AM Scheduled Provider:ANISA GOMEZ MD Location:[facility] Appointment Type:BS CYLINDER TESTER Future Scheduled Tests Radiology* US Renal 04/15/22 [facility] Evaluation + Plan note Future Appointments Appointment Date:04/16/2022 04:30:00 PM Scheduled Provider:LARRY THOMAS DO Location:[facility] Appointment Type:PC OV Appointment Date:05/28/2022 10:00:00 AM Scheduled Provider:ANISA GOMEZ MD Location:[facility] Appointment Type:BS CYLINDER TESTER [facility] evaluation + Plan note Future Appointments Appointment Date:07/16/2022 03:30:00 PM Scheduled Provider:ANISA GOMEZ MD Location:[facility] Appointment Type:BS OV Post Op Appointment Date:09/11/2022 11:00:00 AM Scheduled Provider:LARRY THOMAS DO Location:[facility] Appointment Type:PC Wellness Medicare [facility] evaluation + Plan note Future Appointments Appointment Date:12/14/2022 10:00:00 AM Scheduled Provider: Location:[facility] Appointment Type:BD Bone Density DEXA Axial Skeleton Appointment Date:03/16/2023 10:00:00 AM Scheduled Provider:LARRY THOMAS DO Location:[facility] Appointment Type:PC OV Future Scheduled Tests Radiology* BD Bone Density DEXA Axial Skeleton 12/14/22 [facility] Evaluation + Plan note Future Appointments Appointment Date:06/15/2023 10:30:00 AM Scheduled Provider:LARRY THOMAS DO Location:[facility] Appointment Type:PC OV Diagnostic Tests Pending * Methylmalonic Acid, Serum 04/07/23 [facility] Evaluation + Plan note Future Appointments Appointment Date:06/15/2023 10:30:00 AM Scheduled Provider:LARRY THOMAS DO Location:[facility] Appointment Type:PC OV [facility] Evaluation + Plan note Future Appointments Appointment Date:12/15/2023 10:00:00 AM Scheduled Provider:LARRY THOMAS DO Location:[facility] Appointment Type:PC OV [facility] Evaluation + Plan note Future Appointments Appointment Date:12/29/2023 01:30:00 PM Scheduled Provider:LARRY THOMAS DO Location:[facility] Appointment Type:PC OV Diagnostic Tests Pending * Vitamin B12 Level 12/15/23 * Folate Level 12/15/23 Future Scheduled Tests Laboratory* Calcium Level Ionized 12/15/23 * Urine Culture 12/15/23 Radiology* XR Spine Lumbar W/Obliques 4 Views 12/15/23 [facility] Evaluation + Plan note Future Appointments Appointment Date:12/29/2023 01:30:00 PM Scheduled Provider:LARRY THOMAS DO Location:[facility] Appointment Type:PC OV Future Scheduled Tests Laboratory* Calcium Level Ionized 12/15/23 Radiology* XR Chest 2 Views (PA & Lateral) 12/19/23 * XR Spine Lumbar W/Obliques 4 Views 12/15/23 [facility] Evaluation + Plan note Future Appointments Appointment Date:12/29/2023 01:30:00 PM Scheduled Provider:LARRY THOMAS DO Location:[facility] Appointment Type:PC OV Future Scheduled Tests Laboratory* Calcium Level Ionized 12/15/23 [facility] Evaluation + Plan note Future Appointments Appointment Date:02/16/2024 09:30:00 AM Scheduled Provider:LARRY THOMAS DO Location:[facility] Appointment Type:PC OV Future Scheduled Tests Radiology* US Bladder 12/29/23 [facility] Evaluation + Plan note Future Appointments Appointment Date:02/16/2024 09:30:00 AM Scheduled Provider:LARRY THOMAS DO Location:[facility] Appointment Type:PC OV [facility] Evaluation note* Diagnosis Abnormal ultrasound of breast Other (abnormal) findings on radiological examination of breast History of left breast cancer documented in this encounter [facility] noteNo assessment information availableWTr[facility] Work Phone: Hospital course Narrative No data available for this section [facility] Hospital Discharge instructions No data available for this section [facility] Hospital Discharge instructions Additional Instructions She has a superior pubic ramus fracture which is a pelvis fracture. These are not treated with surgery. They generally heal over weeks to months. She can do activity as tolerated. She may walk or be in a wheelchair or obviously lying in bed. Tylenol for pain. Assonet as needed for pain also.[facility] Work Phone: Progress note No data available for this section [facility] Reason for referral (narrative)No reason for referral information availableWTrumbull Memorial Hospital Work Phone: Chief Complaint Chief Complaint [...] Visit Chief Complaint Admit Date ADMISSION EXAM CYLINDER TESTER February 24, 2024 3 :20pm [facility] February 28, 2024 5:00am ADMISSION EXAM February 29, 2024 1 1:54am [facility] March 27 5:00am LABWORK April 03, 2024 5:00am NEW CONCERN April 03, 2024 2:22pm LABWORK May 01, 2024 5:0 0am Chief Complaint Admit Date ADMISSION EXAM CYLINDER TESTER February 24, 2024 3 :20pm [facility] [...] 00am Chief Complaint Admit Date ADMISSION EXAM CYLINDER TESTER February 24, 2024 3 :20pm [facility] [...] 0am Chief Complaint Admit Date ADMISSION EXAM CYLINDER TESTER February 24, 2024 3 :20pm [facility] [...] 2024 5:00 am Chief Complaint Admit Date [facility] May 24, 2024 5 [...] section and content) DATE CREATED AUTHOR 03/11/2018 [facility] DATE CREATED AUTHOR AUTHOR'S ORGANIZ ATION 06/04/2022 [facility] DATE CREATED AUTHOR AUTHOR'S ORGANIZ ATION 07/09/2023 [facility] ([place] DATE CREATED AUTHOR AUTHOR'S ORGANIZ ATION 02/24/2024 [facility] DATE CREATED AUTHOR AUTHOR'S ORGANIZ ATION 03/28/2024 [facility] DATE CREATED AUTHOR AUTHOR'S ORGANIZ ATION 10/04/2024 [facility] Care Team (unrecognized sect ion and content) Care Team Personnel Name: ALANNA WRIGHT DO Position: P4 Physician - Primary Care Member Role: Primary Care Physician Address: Address: [address] [place] [address] [place] Name: Venkata Alegria RN Position: ED RN Member Role: ED RN Name: BLANCA ARRIETA DO Position: P4 ED Physician II Member Role: ED Physician Address: Address: [address] [facility] [facility] [place] [address]- [place] Care Team Related Persons Name: ZARA DALTON Address: Home [address] [place], [place] [phone] [place] Care Team Personnel Name: ALANNA WRIGHT DO Position: P4 Physician - Primary Care Member Role: Primary Care Physician Address: Address: [address] [place] [address]- Name: Danette Busch RN Position: RN Member Role: RN Name: INES DENNIS MD Position: ED Physician Member Role: Attending Physician Address: Address: [facility] [address] [place] [address]- [place] Care Team Related Persons Name: ZARA DALTON Address: Home [address], [place] [phone] [place] Care Team Personnel Name: ALANNA WRIGHT DO Position: P4 Physician - Primary Care Member Role: Primary Care Physician Address: Address: [address] [place] [address]- [place] Care Team Related Persons Name: ZARA DALTON Address: Home [address], [place] [phone] [place] Care Team Personnel Name: LARRY THOMAS DO Position: P4 Physician - Primary Care Member Role: Primary Care Physician Address: Address: [address] [place] [address]- [place] Care Team Related Persons Name: ZARA DALTON Address: Home [address], [place] [phone] [place] Care Team Personnel Name: LARRY THOMAS DO Position: P4 Physician - Primary Care Member Role: Primary Care Physician Address: Address: [address] [place] [address]- [place] Care Team Related Persons Name: ZARA DALTON Address: Home [address], [place] [phone] [place] Care Team Personnel Name: LARRY THOMAS DO Position: P4 Physician - Primary Care Member Role: Primary Care Physician Address: Address: [address] [place] [id number] [place] [address] Care Team Related Persons Name: ZARA DALTON Address: [address] [place], [place] [phone] Care Team Personnel Name: LARRY THOMAS DO Position: P4 Physician - Primary Care Member Role: Primary Care Physician Address: Address: [address] [place] [address] Care Team Related Persons Name: ZARA DALTNO Address: [address] [phone] Care Team Personnel Name: LARRY THOMAS DO Position: P4 Physician - Primary Care Member Role: Primary Care Physician Address: Address: [address] [place] [address] Care Team Related Persons Name: ZARA DALTON Address: [address] [place] [phone] Source Comments (unrecognize d section and content) In the event this informatio n is protected by the Federal Confidentiality of Alcohol and Drug Abuse Patient Records regulations: The Federal rules restrict any use of the information to criminally investigate or prosecute any alcohol or drug abuse patient.[facility] HospitalIn the event this information is protected by the Federal Confidentiality of Alcohol and Drug Abuse Patient Records regulations: The Federal rules restrict any use of the information to criminally investigate or prosecute any alcohol or drug abuse patient.[facility] Care Teams (unrecognized sec tion [...] End: April 03, 2024 Jane Barth NP CYLINDER TESTER-C Attending Provider Active Start: April 03, 2024 [...] End: April 26, 2024 Jane Barth NP CYLINDER TESTER-C Attending Provider Active Start: April 26, 2024 [...] July 24, 2024 End: July 24, 2024 Mammographer Relationship Specialty Start Date End Date Kelvin Larry [address] [address] PCP - General Family Medicine 03/30/22 Lachelle Cervantes MD, [facility] [place] [address] [address] [place] [address] Physician Radiation Oncology 05/11/17 Kesha Davidson RN Specialty Bank Vault Clerk Oncology 07/28/17 Mammographer Relationship Specialty Start Date End Date Larry Thomas DO [address] [place] [address] PCP - General Family Medicine 03/30/22 Lachelle Cervantes MD, [place] [address] [place] [address] Physician Radiation Oncology 05/11/17 Kesha Davidson RN Specialty Bank Vault Clerk Oncology 07/28/17 Team Status: Active Member Role Status Dates Dr. Warner Leos Jr., MD Family Provider Active Dr. Warner Leos Jr., MD Primary Care Provider Active Team Status: Inactive Member Role Status Dates Dr. Warner Leos Jr., MD Primary Care Provider Active Start: February 24, 2024 End: February 24, 2024 Jane Barth CYLINDER TESTER CYLINDER TESTER-C Attending Provider Active Start: February 24, 2024 [...] End: May 12, 2024 Jane Barth NP CYLINDER TESTER-C Attending Provider Active Start: May 12, 2024 End: May 12, 2024 Team Status: Inactive Member Role Status Dates Dr. Jairon Medel MD Primary Care Provider Active Start: May 23, 2024 End: May 23, 2024 Jane Barth CYLINDER TESTER, CYLINDER TESTER-C Attending Provider Active Start: May 23, 2024 End: May 23, 2024 Team Status: Active Member Role/Relationship Status Dates Dr. Jairon Medel MD Primary Care Provider Active Team Status: Inactive Member Role/Relationship Status Dates Dr. Warner Leos Jr., MD Primary Care Provider Active Start: April 26, 2024 End: April 26, 2024 Jane Barth CYLINDER TESTER, CYLINDER TESTER-C Attending Provider Active Start: April 26, 2024 [...] 2024 End: May 12, 2024 Jane Barth CYLINDER TESTER, CYLINDER TESTER-C Attending Provider Active Start: May 12, 2024 [...] 2024 End: May 23, 2024 Jane Barth CYLINDER TESTER, CYLINDER TESTER-C Attending Provider Active Start: May 23, 2024 [...] End: May 12, 2024 Jane Barth NP, CYLINDER TESTER-C Attending Provider Active Start: May 12, 2024 [...] 2024 End: May 23, 2024 Jane Barth CYLINDER TESTER, CYLINDER TESTER-C Attending Provider Active Start: May 23, 2024 [...] 2024 End: July 24, 2024 Jane Barth CYLINDER TESTER, CYLINDER TESTER-C Attending Provider Active Start: July 24, 2024 [...] June 26, 2024 End: June 26, 2024 Jarion TREVIÑO MD Attending Provider Active Start: June [...] End: July 24, 2024 Jane Barth NP, CYLINDER TESTER-C Attending Provider Active Start: July 24, 2024 [...] BE BASED ON THE PRIMARY CLINICAL RECORDS. [facility] [employer] provides no warranty or guarantee of the accuracy or completeness of information in this document.
[2024-10-16 09:29] LABS: Hematocrit 32.8 % (37-47); Hemoglobin 10.0 g/dL (12.0-15.0); Immature Granulocytes Count 0.020 X10^3/uL (0.0-0.0); Mean Corp Hgb Conc 30.5 g/dL (32-36); Mean Corpuscular Volume 91.4 fL (81-99); Mean Platelet Vol. 10.6 fl (6.2-12.0); NRBC Flagged by Analyzer 0 % (0-5); Platelet Count 273 K/mm3 (150-450); RBC Distribution Width CV 13.2 % (11.6-14.6); RBC Distribution Width SD 44.1 fl (35.1-43.9); Red Blood Count 3.59 M/mm3 (4.2-5.4); White Blood Count 7.2 K/mm3 (4.4-11.0)
[2024-10-16 10:37] LABS: Anion Gap 13 (5-15); BUN 24 mg/dL (4-19); BUN/Creat Ratio 22.8 RATIO (10-20); Calcium,Total 9.7 mg/dL (7.6-11.0); Carbon Dioxide 22.8 mmol/L (21.0-32.0); Chloride 104 mmol/L (98-108); Glucose 76 mg/dL (70-99); Potassium 4.2 mmol/L (3.3-5.1)
== END ==
LOC: OLS.WHLCAR 05:00
PROVIDERS: PCP Internal Medicine; Visit Provider Internal Medicine
DX: I12.9 Hypertensive chronic kidney disease with stage 1 through stage 4 chronic kidney disease, or unspecified chronic kidney disease (principal); N18.9 Chronic kidney disease, unspecified
CPT/HCPCS: 36415; 80048; 85025

== ENCOUNTER → 2024-11-13 | Outpatient (REF) | payer MEDICARE, OTHER, SELFPAY ==
--- OUTSIDE RECORDS SUMMARY | 2024-11-13 07:18 | XMS RPT_ITS | CCD ---
Author Organization [facility] Inform ion Partnership [facility] [place] [facility] Care Team Providers Care Transmitter Operator Name Role Phone Carla Dye MD Unavailable [phone] PAULA ALANIZ Referring Unavailable PAULA ALANIZ Referring Unavailable ADRIANA , ALANNA Herrera Primary Care Physician MICAHAR DO, DR GAO Primary Care Physician [phone] Billy PARKER MD, Dabrandenung Unavailable Stuart RN, Kesha Unavailable Unavailable Micahar DOLarry Primary Care Provider [phone] PAULA ALANIZ Attending Unavailable MARTHA, LARRY Primary [...] AGO Attending Unavailable ROMAR DO, DR GAO Attending Unavailable ROMAR DO, DR GAO Primary Care Unavailable [employer]ER, ELDA Admitting Unavail able SNEHA PARKER, ESPERANZA Attending Unavailable ROMAR DO, DR GAO Primary Care Unavailable ROMAR DO, DR GAO Attending Unavailable ROMAR DO, DR GAO Primary Care Unavailable ROMAR DO, DR GAO Attending Unavailable ROMAR DO, DR GAO Primary Care Unavailable ROMAR DO, DR GAO Primary Care Unavailable ROMAR DO, DR GAO Attending Unavailable Deric PARKER, Dr. Hylton Primary Care Provider Lary LMSW-C, Jane Attending Provider Jairon Medel MD Attending Provider Unavailsteffany Medel MD, Dr. De La O Attending Provider Jairon Medel MD Referring Provider UnavailDr. Warner Norton MD Primary Care Provider Jairon Medel MD Attending Provider Unavailsteffany Barth LMSW-C, Jane Attending Provider Gianfranco PARKER, Dr. De La O Attending Provider Dr. Jairon Medel MD Primary Care Provider Dr. Jean Claude Harry MD Emergency Provider Deric PARKER, Dr. Hylton Primary Care Provider Jairon Medel MD Attending Provider UnavailDr. Jairon Morris MD Primary Care Provider Dr. Warner Leos MD Primary Care Provider Lary LMSW-C, Jane Attending Provider Jairon Medel MD Attending Provider Unavailsteffany Medel MD, Dr. De La O Attending Provider Piero PARKER, Dr. Silverio Attending Provider Deric PARKER, Dr. Hylton Primary Care Provider Tickton LMSW-C, Jane Attending Provider Deric PARKER, Dr. Hylton Primary Care Provider Gianfranco PARKER, Jairon Attending Provider Unavaila katerina Medel MD, Jairon Referring Provider Unavaila katerina Medel MD, Dr. De La O Primary Care Provider Tickton LMSW-C, Jane Attending Provider Sameer PARKER, Dr. Dumont Attending Provider Oleghe OLS, Efewongbe Attending Unavailthea Leos Jr., Warner Primary Care Unavailable Tickton LMSW, Jane Attending Unavailable Deric Rodriguez, Warner Primary Care Unavailable Oleghe, Efewongbe Attending Unavailable Oleghe, Efewongbe Primary Care Unavailable Oleghe, Efewongbe Primary Care Unavailable Tickton LMSW, Jane Attending Unavailable Oleghe OLS, Efewongbe Attending Unavailthea Leos Jr., Warner Primary Care Unavailable Oleghe OLS, Efewongbe Attending Unavailthea Leos Jr., Warner Primary Care Unavailable Oleghe, Efewongbe Primary Care Unavailable Oleghe OLS, Efewongbe Attending Unavailthea Leos Jr., Warner Primary Care Unavailable Oleghe OLS, Efewongbe Attending Unavailabl e Cortezghe OLS, Efewongbe Attending Unavailthea Leos Jr., Warner Primary Care Unavailable Jean Claude Harry Attending Unavailable Oleghe, Efewongbe Primary Care Unavailable Oleghe OLS, Efewongbe Attending Unavailabl e Oleghe, Efewongbe Primary Care Unavailable Tickton LMSW, Jane Attending Unavailable Oleghe, Efewongbe Primary Care Unavailable Tickton LMSW, Jane Attending Unavailable Deric Parisi., Warner Primary Care Unavailable Oleghe, Efewongbe Attending Unavailable Deric Parisi., Warner Primary Care Unavailable Tickton LMSW, Jane Attending Unavailable Deric Rodriguez, Warner Primary Care Unavailable Oleghe, Efewongbe Attending Unavailable Oleghe, Efewongbe Primary Care Unavailable Oleghe, Efewongbe Primary Care Unavailable Tickton LMSW, Jane Attending Unavailable Gianfranco, Jairon Attending Unavailable Deric Rodriguez, Warner Primary Care Unavailable Oleghe OLS, Efewongbe Attending Unavailabl e Oleghe, Efewongbe Primary Care Unavailable Oleghe OLS, Efewongbe Attending Unavailabl e Oleghe OLS, Efewongbe Referring Unavailthea Leos Jr., Warner Primary Care Unavailable Oleghe OLS, Efewongbe Attending Unavailabl e Oleghe, Efewongbe Primary Care Unavailable Oleghe OLS, Efewongbe Attending Unavailthea Leos Jr., Warner Primary Care Unavailable Oleghe OLS, Efewongbe Attending Unavailabl e Cortezghe OLS, Efewongbe Referring Unavailthea Leos Jr., Warner Primary Care Unavailable Gianfranco PARKER, Dr. De La O Primary Care Physician Piero PARKER, Dr. Silverio Attending Physician Piero PARKER, Dr. Silverio Emergency Department Physici an Jane Villaseñor Attending Physician Sameer PARKER, Dr. Dumont Attending Physician Gianfranco PARKER, Dr. De La O Attending Physician [phone] Gianfracno PARKER, Jairon Attending Physician Unavail able Allergies Allergy Classification Reported Allergen(s) Allergy Type Date of Onset Reaction(s) Facility (1 source) Sulfacetamide Drug Allergy 4 rash [facility] Work Phone: (10 sources) Sulfonamides (Antibiotic); Translations: [SULFA (SULFONAMIDE ANTIBIOTICS)] Propensity to adverse reactions to drug (disorder) 8 Intolerance [facility] Other [facility] Medications Current Medications Medication Drug Class(es) Dates Sig (Normalized) Sig (Original) acetaminophen 500 mg oral tablet (18 sources) Start: 06-27-2014 take 1 tablet by mouth once daily as needed for pain alendronic acid 70 mg oral tablet (17 sources) Bisphosphonate Start: 07-24-2024 take 1 tablet by mouth every week Start: 12-15-2023 End: 05-31-2024 take 6-8 [oz_av] by mouth once daily alendronate 70 mg oral tablet Dose : 70 mg = 1 tab(s), Oral, qWeek, with 6-8 oz plain water, at least 30 minutes before first food, beverage, or medication of the day. Sit up for at least 30 minutes after taking., # 12 tab(s), 1 Refill(s), Pharmacy: [facility]/pharmacy #[id number], 155, cm, 12/15/23 10:32:00 EST, Height, [...] taking., # 12 tab(s), 1 Refill(s), Pharmacy: [facility]/pharmacy #[id number], 153.5, cm, 06/15/23 10:26:00 EDT, Height, kg, 06/15/23 10:26:00 EDT, Dosing Weight Start Date: 06/15/23 Stop Date: 11/30/23 Status: Ordered anastrozole 1 mg oral tablet (20 sources) Aromatase Inhibitor Start: 09-28-2023 take 1 tablet by mouth once daily in the evening anastrozole 1 mg oral tablet 1 tab(s), Oral, qPM, # 90 tab(s), 0 Refill(s), Pharmacy: [facility]/pharmacy #[id number], 153.5, cm, 06/15/23 10:26:00 EDT, Height, kg, 06/15/23 10:26:00 EDT, Dosing Weight Start Date: 09/28/23 Status: Ordered Start: 03-16-2023 take 1 tablet by charles th once daily in the evening anastrozole 1 mg oral tablet 1 tab(s), Oral, qPM, # 90 tab(s), 1 Refill(s), Pharmacy: [facility]/pharmacy #[id number], 155.2, cm, 03/16/23 9:59:00 EST, Height, kg, 03/16/23 9:59:00 EST, Dosing Weight Start Date: 03/16/23 Status: Ordered Start: 09-30-2022 take 1 tablet by charles th once daily in the evening anastrozole 1 mg oral tablet 1 tab(s), Oral, qPM, # 90 tab(s), 1 Refill(s), [id number], 156.5, cm, 09/11/22 11:11:00 EDT, Height, kg, 09/11/22 11:11:00 EDT, Dosing Weight Start Date: 09/30/22 Status: Ordered Start: 11-21-2021 take 1 tablet by charles th once daily in the evening anastrozole 1 mg oral tablet 1 tab(s), Oral, qPM, # 90 tab(s), 1 Refill(s), Pharmacy: [facility] STORE [id number], 154.5, cm, 11/18/21 13:32:00 EDT, Height, kg, 11/18/21 13:32:00 EDT, Dosing Weight Start Date: 11/21/21 Status: Ordered Start: 03-20-2020 End: 04-05-2021 take 1 tablet by mouth once daily anastrozole 1 mg oral tablet 1 tab(s), Oral, qDay, # 90 tab(s), 1 Refill(s), Pharmacy: [facility] STORE [id number], 155, cm, 11/04/20 8:28:00 EDT, Height, kg, 11/11/20 8:26:00 EDT, Dosing Weight Start Date: 04/17/21 Status: Ordered Start: 01-12-2018 ARIMIDEX 1 MG TABS 1 tablet daily ANASTROZOLE [id number] [facility] Comment on above: TAKE 1 TABLET BY CHARLES TH EVERY DAY aspirin 81 mg delayed release oral tablet (20 sources) Platelet Aggregation Inhibitor, Nonsteroidal Anti-inflammatory Drug Start: 10-05-2023 End: 04-02-2024 aspirin 81 mg oral delayed release tablet Dose : 81 mg = 1 tab(s), Oral, qAM, do not crush or chew, # 90 tab(s), 1 Refill(s), Pharmacy: [facility]/pharmacy #[id number], 153.5, cm, 06/15/23 10:26:00 EDT, Height, kg, 06/15/23 10:26:00 EDT, Dosing Weight Start Date: 10/05/23 Stop Date: 04/02/24 Status: Ordered Start: 03-05-2022 End: 05-20-2023 aspirin 81 mg oral delayed r elease tablet Dose : 81 mg = 1 tab(s), Oral, qAM, do not crush or chew, # 90 tab(s), 3 Refill(s), Pharmacy: [facility]/pharmacy #[id number], 154.3, cm, 04/16/22 16:12:00 EST, Height, [...] qPM, # 100 tab(s), 1 Refill(s), Pharmacy: [facility]/pharmacy #[id number], 155, cm, 12/15/23 10:32:00 EST, Height, kg, 12/15/23 10:26:00 EST, Dosing Weight Start Date: 12/15/23 Stop Date: 07/02/24 Status: Ordered Quantity: 100.0 Unit: tab(s) Repeat number: 2 Start: 09-13-2023 End: 12-12-2023 atorvastatin 20 mg oral tabl et Dose : 20 mg = 1 tab(s), Oral, qPM, # 90 tab(s), 0 Refill(s), Pharmacy: [facility]/pharmacy #[id number], 153.5, cm, 06/15/23 10:26:00 EDT, Height, kg, 06/15/23 10:26:00 EDT, Dosing Weight Start Date: 09/13/23 Stop Date: 12/12/23 Status: Ordered Start: 01-29-2023 End: 07-28-2023 atorvastatin 20 mg oral tabl et Dose : 20 mg = 1 tab(s), Oral, qPM, # 90 tab(s), 1 Refill(s), [id number], 156.5, cm, 09/11/22 11:11:00 EDT, Height, kg, 09/11/22 11:11:00 EDT, Dosing Weight Start Date: 01/29/23 Stop Date: 07/28/23 Status: Ordered Start: 03-09-2022 End: 11-21-2022 atorvastatin 20 mg oral tabl et Dose : 20 mg = 1 tab(s), Oral, qPM, # 90 tab(s), 1 Refill(s), [id number], 154.3, cm, 04/16/22 16:12:00 EST, Height, kg, 04/16/22 16:12:00 EST, Dosing Weight Start Date: 05/25/22 Stop Date: 11/21/22 Status: Ordered Start: 08-22-2021 take 0.5 tablet by m outh once daily atorvastatin 20 mg oral tablet 0.5 tab(s), Oral, qDay, # 45 tab(s), 1 Refill(s), Pharmacy: [facility] STORE [id number], 155, cm, 05/05/21 8:51:00 EDT, Height, kg, 05/05/21 8:51:00 EDT, Dosing Weight Start Date: 08/22/21 Status: Ordered Start: 11-06-2020 take 0.5 tablet by m outh once daily atorvastatin 20 mg oral tablet See Instructions, TAKE 1/2 TABLET EVERY DAY, # 45 tab(s), 1 Refill(s), Pharmacy: [facility]/pharmacy #[id number], 155, cm, 11/04/20 8:28:00 EDT, Height, kg, 11/04/20 8:28:00 EDT, Dosing Weight Start Date: 11/06/20 Status: Ordered Start: 04-20-2017 take 2 tablets by mo uth at bedtime Start: 10-27-2013 take 1 tablet by charles at bedtime Atorvastatin 10 MG tablet Active 10 mg PO AT BEDTIME April 20, 2017 12:00am Comment on above: Take 10 mg by mouth once daily. busPIRone hydrochloride 5 mg oral tablet (7 sources) Start: 07-24-2024 take 1 tablet by mouth twice daily calcium carbonate 1500 mg / cholecalciferol 800 unt oral tablet (12 sources) Vitamin D Start: 04-20-2017 Start: 04-20-2017 Calcium Carbon ate-Vitamin D3 1 EACH tablet Active 1 NMA PO THREE TIMES A DAY April 20, 2017 12:00am celecoxib 100 mg oral capsule (17 sources) Nonsteroidal Anti-inflammatory Drug Start: 08-10-2022 take 1 capsule by mouth once daily in the morning celecoxib 100 mg oral capsule 1 cap(s), Oral, qAM, # 90 cap(s), 0 Refill(s), [id number], 156.2, cm, 07/01/22 6:28:00 EDT, Height, kg, 07/01/22 6:28:00 EDT, Dosing Weight Start Date: 08/10/22 Status: Ordered Start: 12-07-2016 take 1 capsule by [facility] once daily in the morning celecoxib 100 mg oral capsule 1 cap(s), Oral, qAM, # 90 cap(s), 1 Refill(s), Pharmacy: [facility] STORE [id number], 154.3, cm, 04/16/22 16:12:00 EST, Height, kg, 04/16/22 16:12:00 EST, Dosing Weight Start Date: 05/21/22 Status: Ordered Start: 10-27-2013 CELEBREX 100 M G CAPS 1-2 capsules weekly as needed CELECOXIB [id number] Vidya Babin LPN Comment on above: Take 100 mg by mouth once daily. ciclopirox 80 mg/ml topical solution (6 sources) Start: 03-05-2022 End: 01-06-2024 ciclopirox 8% topical solution Apply 1 angelica, Topical, Daily, apply to affected toenails and surrounding area once daily, remove with alcohol every 7 days prior to reapplication, Apply to: toenails, X 48 week(s), # 6.6 mL, 1 Refill(s), [id number], 154.3, cm, 03/05/22 9:44:00 EST, Height, 75.6 Start Date: 03/05/22 Stop Date: 01/06/24 Status: Ordered Clobetasol (3 sources) Corticosteroid Start: 01-20-2021 clobetasol 0.05% topical ointment See Instructions, APPLY TO AFFECTED AREA TWICE A DAY, # 15 gram(s), 1 Refill(s), Pharmacy: [facility] STORE [id number], 155, cm, 11/04/20 8:28:00 EDT, Height, 81.2, kg, 11/11/20 8:26:00 EDT, Dosing Weight Start Date: 01/20/21 Status: Ordered Start: 07-30-2020 Temovate 0.05% topical ointment Apply 1 angelica, Topical, BID, # 15 gram(s), 0 Refill(s), [id number], Ointment, 155, cm, 07/23/20 8:15:00 EDT, Height, 86.1, kg, 07/30/20 8:40:00 EDT, Dosing Weight Start Date: 07/30/20 Status: Ordered donepezil hydrochloride 10 m g oral tablet (20 sources) Start: 07-24-2024 take 1 tablet by charles once daily Start: 06-15-2023 donepezil 10 m g oral tablet Dose : 10 mg = 1 tab(s), Oral, qHS, # 30 tab(s), 0 Refill(s) Start Date: 06/15/23 Status: Ordered Quantity: 30.0 Unit: tab(s) Repeat number: 1 Start: 09-30-2022 donepezil 5 mg oral tablet Dose : 5 mg = 1 tab(s), Oral, qHS, # 90 tab(s), 1 Refill(s), Pharmacy: [facility]/pharmacy #[id number], 156.5, cm, 09/11/22 11:11:00 EDT, Height, kg, 09/11/22 11:11:00 EDT, Dosing Weight Start Date: 09/30/22 Status: Ordered Start: 03-17-2022 donepezil 5 mg oral tablet Dose : 5 mg = 1 tab(s), Oral, qHS, # 30 tab(s), 0 Refill(s) Start Date: 2/7/23 Status: Ordered Start: 04-21-2021 take 1 tablet by charles th once daily at bedtime donepezil 5 mg oral tablet 1 tab(s), Oral, qHS, # 90 tab(s), 1 Refill(s), Pharmacy: [facility] STORE [id number], 155, cm, 11/04/20 8:28:00 EDT, Height, kg, [...] Status: Ordered escitalopram 10 mg oral tablet (7 sources) Serotonin Reuptake Inhibitor Start: 07-24-2024 take 1 tablet by mouth once daily ferrous sulfate 325 mg oral tablet (13 sources) Start: 07-24-2024 Start: 12-19-2023 End: 03-18-2024 ferrous sulfate 325 mg (65 m g elemental iron) oral tablet Dose : 325 mg = 1 tab(s), Oral, Mon/Wed/Fri, may take with food to minimize abdominal discomfort, # 39 tab(s), 0 Refill(s), [id number], 155, cm, 12/15/23 10:32:00 EST, Height, kg, 12/15/23 10:26:00 EST, Dosing Weight Start Date: 12/19/23 Stop Date: 03/18/24 Status: Ordered Quantity: 39.0 Unit: tab(s) Repeat number: 1 furosemide 20 mg oral tablet (7 sources) Loop Diuretic Start: 07-24-2024 take 1 tablet by mouth once daily Lidocaine (2 sources) Antiarrhythmic, Amide Local Anesthetic Start: 07-23-2020 lidocaine 4% topical cream Apply 1 angelica, Topical, TID, # 5 gram(s), 0 Refill(s), [id number], Cream, 155, cm, 07/23/20 8:15:00 EDT, Height, 85.2, kg, 07/23/20 8:15:00 EDT, Dosing Weight Start Date: 07/23/20 Status: Ordered lisinopril 20 mg oral tablet (14 sources) Angiotensin Converting Enzyme Inhibitor Start: 03-16-2023 take 1 tablet by mouth once daily in the morning lisinopril 20 mg oral tablet 1 tab(s), Oral, qAM, # 90 tab(s), 1 Refill(s), [id number], 155.2, cm, 03/16/23 9:59:00 EST, Height, kg, 03/16/23 9:59:00 EST, Dosing Weight Start Date: 03/16/23 Status: Ordered Start: 10-15-2022 take 1 tablet by charles th once daily in the morning lisinopril 20 mg oral tablet 1 tab(s), Oral, qAM, # 90 tab(s), 1 Refill(s), [id number], 156.5, cm, 09/11/22 11:11:00 EDT, Height, kg, 09/11/22 11:11:00 EDT, Dosing Weight Start Date: 10/15/22 Status: Ordered Start: 04-13-2022 take 1 tablet by charles th once daily in the morning lisinopril 20 mg oral tablet 1 tab(s), Oral, qAM, # 90 tab(s), 1 Refill(s), [id number], 154.3, cm, 03/17/22 9:37:00 EST, Height, kg, 03/17/22 9:37:00 EST, Dosing Weight Start Date: 04/13/22 Status: Ordered Start: 09-02-2021 take 1 tablet by charles th once daily lisinopril 20 mg oral tablet 1 tab(s), Oral, qDay, # 90 tab(s), 1 Refill(s), Pharmacy: [id number], 155, cm, 05/05/21 8:51:00 EDT, Height, kg, 05/05/21 8:51:00 EDT, Dosing Weight Start Date: 09/02/21 Status: Ordered Start: 10-22-2020 take 1 tablet by charles th once daily lisinopril 20 mg oral tablet See Instructions, TAKE 1 TABLET BY MOUTH EVERY DAY, # 90 tab(s), 1 Refill(s), Pharmacy: [facility] STORE [id number], 155, cm, 07/23/20 8:15:00 EDT, Height, kg, 07/30/20 8:40:00 EDT, Dosing Weight Start Date: 10/22/20 Status: Ordered losartan potassium 50 mg oral tablet (20 sources) Angiotensin 2 Receptor Aniyah Start: 10-27-2013 End: 07-02-2024 take 1 tablet by mouth once daily 24 hr memantine hydrochloride 28 mg extended release oral capsule (20 sources) P-cvniwq-Z-aspartate Receptor Antagonist Start: 07-24-2024 take 1 capsule by mouth once daily Start: 01-18-2024 memantine 28 m g oral [...] qAM, # 90 tab(s), 1 Refill(s), [id number], 156.5, cm, 09/11/22 11:11:00 EDT, Height, kg, 09/11/22 11:11:00 EDT, Dosing Weight Start Date: 01/29/23 Status: Ordered Start: 05-25-2022 take 1 tablet by charles th once daily in the morning memantine 5 mg oral tablet 1 tab(s), Oral, qAM, # 90 tab(s), 1 Refill(s), [id number], 154.3, cm, 04/16/22 16:12:00 EST, Height, kg, 04/16/22 16:12:00 EST, Dosing Weight Start Date: 05/25/22 Status: Ordered Start: 07-14-2021 take 1 tablet by charles th once daily memantine 5 mg oral tablet 1 tab(s), Oral, qDay, # 90 tab(s), 1 Refill(s), Pharmacy: [facility] [id number], 155, cm, 05/05/21 8:51:00 EDT, Height, kg, 05/05/21 8:51:00 EDT, Dosing Weight Start Date: 07/14/21 Status: Ordered Start: 04-15-2021 take 1 tablet by charles once daily memantine 5 mg oral tablet 1 tab(s), Oral, qDay, # 90 tab(s), 0 Refill(s), Pharmacy: [facility] ST[facility] 71217, 155, cm, 11/04/20 8:28:00 EDT, Height, kg, 11/11/20 8:26:00 EDT, Dosing Weight Start Date: 04/15/21 Status: Ordered Start: 10-17-2020 take 1 tablet by charles once daily memantine 5 mg oral tablet See Instructions, TAKE 1 TABLET BY MOUTH EVERY DAY, # 90 tab(s), 0 Refill(s), Pharmacy: [facility] 01419, 155, cm, 07/23/20 8:15:00 EDT, Height, kg, 07/30/20 8:40:00 EDT, Dosing Weight Start Date: 10/17/20 Status: Ordered Multivitamin preparation (17 sources) Start: 03-17-2022 take 1 tablet by mouth once daily Multivitamin Dose = 1 tab(s), Oral, Daily, 0 Refill(s) Start Date: 03/17/22 Status: Ordered Repeat number: 1 Start: 03-17-2022 take 1 tablet by charles once daily Multivitamin Dose = 1 tab(s), Oral, Daily, 0 Refill(s) Start Date: 03/17/22 Status: Ordered Qekweclwngqq-Yj-Oqcb-Mineral s (Multiple Vitamins For Women) 1 EACH tablet (12 sources) Start: 04-20-2017 take 1 tablet by mouth once daily Start: 04-20-2017 take 1 tablet by charles once daily Vndzrpyahkhi-Ii-Lmfd-Minerals (Multiple Vitamins For Women) 1 EACH tablet Active 1 NMA PO DAILY April 20, 2017 12:00am mupirocin 0.02 mg/mg topical ointment (2 sources) RNA Synthetase Inhibitor Antibacterial Start: 06-19-2022 mupirocin 2% top ical ointment Apply 1 angelica, Topical, BID, Bilateral intranasal application twice daily x 5 days pre-surgery., Apply to: nostril, each, # 22 gram(s), 0 Refill(s), Pharmacy: [facility]/pharmacy #[id number], Ointment, 154.3, cm, 05/28/22 7:35:00 EDT, Height, 77 Start Date: 06/19/22 Status: Ordered nystatin [id number] unt/ml topical cream (8 sources) Polyene Antifungal Start: 07-24-2024 Start: 09-11-2022 End: 11-10-2022 nystatin 100,000 units/g top ical cream Apply 1 angelica, Topical, BID, PRN Rash, Apply to the affected area twice daily until healing complete., # 30 gram(s), 1 Refill(s), [id number], Cream, 156.5, cm, 09/11/22 11:11:00 EDT, [...] Date: 01/24/24 Status: Ordered polyethylene glycol 3350 39830 mg powder for oral solution (8 sources) Osmotic Laxative Start: 07-24-2024 Start: 02-10-2024 MiraLax oral p owder for [...] day(s), # 6 tab(s), 0 Refill(s), Pharmacy: [facility]/pharmacy #[id number], 155, cm, 12/15/23 10:32:00 EST, Height, 68.6, kg, 12/15/23 10:26:00 EST, Dosing Weight Start Date: 12/15/23 Stop Date: 12/18/23 Status: Ordered divalproex sodium 125 mg delayed release oral tablet (11 sources) Mood Stabilizer, Anti-epileptic Agent Start: 07-24-2024 take 1 tablet by mouth at bedtime Start: 12-29-2023 divalproex sod ium 125 mg [...] 1,000 mg by charles twice daily. Atenolol (18 sources) beta-Adrenergic Aniyah Start: 12-06-2021 End: 12-06-2021 atenolol Start: 12/06/21 9:00:00 EDT, Dose = 50 mg, = 1 tab(s), Oral, 0, 12/04/21 8:45:00 EDT Start Date: 12/06/21 Stop Date: 12/06/21 Status: Completed Start: 02-26-2017 take 2 tablets by mo cox [place] once daily atenolol (TENORMIN) 50 mg tablet [...] TABS 1 tablet daily CALCIUM CARB-CHOLECALCIFEROL TABS [id number] Vidya Babin BEATER [place] calcium carbonate 1500 mg oral tablet (12 sources) Start: End: calcium (as carbonate) 600 mg oral tablet Dose : 600 mg = 1 tab(s), Oral, qDay, # 90 tab(s), 3 Refill(s), Pharmacy: [facility]/pharmacy #[id number], 156.5, cm, 09/11/22 11:11:00 EDT, Height, [...] on above: Take 3 tablets by mo [facility] [place] once daily. cyclobenzaprine hydrochloride 10 mg oral tablet (17 sources) Muscle Relaxant Start: End: take 1 [...] once daily. gabapentin 300 mg oral capsule (17 sources) Anti-epileptic Agent Start: End: take 1 [...] qAM, # 90 tab(s), 1 Refill(s), Pharmacy: [facility] STORE [id number], 154.5, cm, 11/18/21 13:32:00 EDT, Height, kg, 11/18/21 13:32:00 EDT, Dosing Weight Start Date: 11/21/21 Status: Ordered Comment on above: Take 25 mg by mouth once daily. hydroCHLOROthiazide 25 mg oral tablet (17 sources) Thiazide Diuretic Start: End: take 1 tablet by mouth once daily Hydrochlorothiazide 25 MG tablet Discontinued 25 mg PO DAILY April 20, 2017 12:00am July 24, 2024 1:38am Comment on above: Take 25 mg by mouth once daily. MULTIPLE VITAMIN (1 source) Start: 014 MULTIVITAMINS CAPS 1 capsule daily MULTIPLE VITAMIN [id number] [place] multivitamin tablet (2 sources) take [...] dementia, and amnestic and other cognitive disorders (15 sources) Dementia; Translations: [Unspecified dementia without behavioral disturbance] Onset: 02-10-2024 03-16-2023 Chronic Disorders of lipid metabolism (20 sources) Mixed hyperlipidemia 08-18-2019 Chronic E Codes: Fall (7 sources) Fall; Translations: [Unspecified fall, initial encounter] 07-24-2024 Episodic Essential hypertension (16 sources) Hypertensive disorder 08-18-2019 Chronic Genitourinary symptoms and ill-defined conditions (6 sources) Increased frequency of urination; Translations: [Frequency of micturition] Onset: 12-09-2023 Episodic Hypertension with complications and secondary hypertension (2 sources) Hypertensive chronic kidney disease with stage 1 [...] of lumbar spine 12-29-2023 Episodic Other fractures (7 sources) Closed fracture of pelvis; Translations: [Fracture [...] of mental health and substance abuse codes (7 sources) H/O: dementia; Translations: [Personal history of [...] tolerance; Translations: [Hyperglycemia] Onset: 11-01-2014 11-01-2014 Episodic Other injuries and conditions due to external causes (1 source) Encounter for examination and observation following other accident; Translations: [Encounter for examination and observation following other accident] Onset: 07-29-2024 Episodic Residual codes; unclassified (1 source) Edema, unspecified; Translations: [Edema, unspecified] Onset: 05-31-2024 Episodic Unclassified (1 source) Problem Results Test Name Value Interpretation Reference Range Facility Absolute lymphocyte countOrd ered By: Jairon Medel on 10-16-2024 Lymphocytes Auto (Unsp spec) [#/Vol] 2.13 10*3/uL 0.83-4.51 [facility] Absolute neutrophil countOrd ered By: Jaiorn Medel on 10-16-2024 Neutrophils (Bld) [#/Vol] 4.1 10*3/uL 2.0-7.7 [facility] Anion gap in Serum or Plasma Ordered By: Poojasreekanthmahadmakenzie Torojenifersophia on 10-16-2024 Anion gap [Moles/Vol] 13 mmol/L 5-15 [facility] Automated lymphocyte count a s percentage of total leukocytesOrdered By: Carrillomahadmakenzie Torojenifersophia on 10-16-2024 Lymphocytes/100 WBC Auto (Unsp spec) 29.5 % 19-41 [facility] BUN/creatinine ratioOrdered By: sreekanthbrunswickmakenzie Torojenifersophia on 10-16-2024 Urea nitrogen/Creatinine [Mass ratio] 22.8 mg/mg High 10-20 [facility] Basophil percentageOrdered B y: Jairon De Leonsophia on 10-16-2024 Basophils/100 WBC (Bld) 0.8 % 0-1 [facility] Carbon dioxide, total [Moles /volume] in Central venous bloodOrdered By: Jairon Cortezjenifersophia on 10-16-2024 CO2 [Moles/Vol] 22.8 mmol/L 21.0-32.0 [facility] Chloride assayOrdered By: meghanmakenzie Torojenifersophia on 10-16-2024 Chloride [Moles/Vol] 104 mmol/L 98-108 [facility] Eosinophil percentageOrdered By: margarette De Leonsophia on 10-16-2024 Eosinophils/100 WBC (Bld) 3.2 % 0-5 [facility] Erythrocyte distribution wid th ratioOrdered By: margaertte Cortezjenifersophia on 10-16-2024 Erythrocyte distribution width (RBC) [Ratio] 13.2 % 11.6-14.6 [facility] Erythrocyte distribution wid th standard deviationOrdered By: margarette Torojenifersophia on 10-16-2024 Erythrocyte distribution width (RBC) [Ratio] 44.1 fl High 35.1-43.9 [facility] Glomerular filtration rate ( GFR) estimation/1.73 sq m using serum, plasma, or whole bOrdered By: Jairon Medel on 10-16-2024 GFR/1.73 sq M.predicted among non-blacks MDRD (S/P/Bld) [Vol rate/Area] 51 mL/min/{1.73_m2} Low >60 [facility] Comment on above: mL/min/1.73m2 CKD-EP I Creatinine Equation (2020) Hematocrit Auto (Bld) [Volum e fraction]Ordered By: Jairon Medel on 10-16-2024 Hematocrit (Bld) [Volume fraction] 32.8 % Low 37-47 [facility] Hemoglobin measurementOrdere d By: Jairon Medel on 10-16-2024 Hemoglobin (Bld) [Mass/Vol] 10.0 g/dL Low 12.0-15.0 [facility] Immature granulocytes/100 WB C Auto (Bld)Ordered By: Jairon Medel on 10-16-2024 Immature granulocytes/100 WBC (Bld) 0.300 % 0.0-0.9 [facility] Comment on above: IG% - Immature Granu locytes (promyelocytes, myelocytes and metamyelocytes) > 1% indicates that a LEFT SHIFT is Present. MCV (mean corpuscular volume ) determinationOrdered By: Jairon Medel on 10-16-2024 MCV (RBC) [Entitic vol] 91.4 fL 81-99 [facility] Mean corpuscular hemoglobin (MCH) determinationOrdered By: Jairon Medel 10-16-2024 MCH (RBC) [Entitic mass] 27.9 pg 27.0-32.0 [facility] Mean corpuscular hemoglobin concentration (MCHC) determinationOrdered By: Jairon Medel 10-16-2024 MCHC (RBC) [Mass/Vol] 30.5 g/dL Low 32-36 [facility] Mean platelet volume determi nationOrdered By: Jairon Medel on 10-16-2024 Platelet mean volume (Bld) [Entitic vol] 10.6 fL 6.2-12.0 [facility] Monocyte percentageOrdered B y: Jairon Medel on 10-16-2024 Monocytes/100 WBC (Bld) 9.4 % 0-10 [facility] Neutrophil percentageOrdered By: Jairon Cortezdorcas on 10-16-2024 Neutrophils/100 WBC (Bld) 56.8 % 47-70 [facility] Nucleated red blood cell per centageOrdered By: Poojasreekanthbraden Cortezdorcas on 10-16-2024 Nucleated RBC/100 WBC (Bld) [Ratio] 0 % 0-5 [facility] Platelet countOrdered By: Pooja margarette Cortezjenifersophia on 10-16-2024 Platelets (Bld) [#/Vol] 273 10*3/uL 150-450 [facility] Potassium measurement (mass/ volume)Ordered By: Carrillomahadmakenzie Torojenifersophia on 10-16-2024 Potassium (Unsp spec) [Mass/Vol] 4.2 mmol/L 3.3-5.1 [facility] RBC Auto (Bld) [#/Vol]Ordere d By: Poojamargarette Cortezjenifersophia on 10-16-2024 RBC (Bld) [#/Vol] 3.59 10*6/uL Low 4.2-5.4 [facility] Serum creatinine measurement (mass/volume)Ordered By: Poojasreekanthmahadmakenzie Torojenifersophia on 10-16-2024 Creatinine [Mass/Vol] 1.07 mg/dL 0.70-1.20 [facility] Serum glucose measurement (m ass/volume)Ordered By: Jairon Medel on 10-16-2024 Glucose [Mass/Vol] 76 mg/dL 70-99 [facility] Serum or plasma calcium krissy urement (mass/volume)Ordered By: Jairon Medel on 10-16-2024 Calcium [Mass/Vol] 9.7 mg/dL 7.6-11.0 [facility] Serum or plasma urea nitroge n measurement (mass/volume)Ordered By: Jairon Torojenifersophia on 10-16-2024 Urea nitrogen [Mass/Vol] 24 mg/dL High 4-19 [facility] Sodium levelOrdered By: Carrillo braden Gianfranco on 10-16-2024 Sodium [Moles/Vol] 139 mmol/L 133-145 [facility] White blood cell (WBC) count Ordered By: Jairon Medel on 10-16-2024 WBC (Bld) [#/Vol] 7.2 10*3/uL 4.4-11.0 [facility] Absolute lymphocyte countOrd ered By: Jairon Medel on 09-18-2024 Lymphocytes Auto (Unsp spec) [#/Vol] 1.93 10*3/uL 0.83-4.51 [facility] Absolute neutrophil countOrd ered By: Efmargarette Medel on 09-18-2024 Neutrophils (Bld) [#/Vol] 3.1 10*3/uL 2.0-7.7 [facility] Anion gap in Serum or Plasma Ordered By: Jairon Medel on 09-18-2024 Anion gap [Moles/Vol] 11 mmol/L 5-15 [facility] Automated lymphocyte count a s percentage of total leukocytesOrdered By: Jairon Medel on 09-18-2024 Lymphocytes/100 WBC Auto (Unsp spec) 34.0 % 19-41 [facility] BUN/creatinine ratioOrdered By: Jairon Medel on 09-18-2024 Urea nitrogen/Creatinine [Mass ratio] 23.1 mg/mg High 10-20 [facility] Basophil percentageOrdered B y: Jairon Medel on 09-18-2024 Basophils/100 WBC (Bld) 0.7 % 0-1 [facility] Carbon dioxide, total [Moles /volume] in Central venous bloodOrdered By: Jairon Medel on 09-18-2024 CO2 [Moles/Vol] 23.8 mmol/L 21.0-32.0 [facility] Chloride assayOrdered By: Pooja Medel on 09-18-2024 Chloride [Moles/Vol] 106 mmol/L 98-108 [facility] Eosinophil percentageOrdered By: Jairon Medel on 09-18-2024 Eosinophils/100 WBC (Bld) 2.1 % 0-5 [facility] Erythrocyte distribution wid th ratioOrdered By: Jairon Medel on 09-18-2024 Erythrocyte distribution width (RBC) [Ratio] 13.6 % 11.6-14.6 [facility] Erythrocyte distribution wid th standard deviationOrdered By: Jairon Medel on 09-18-2024 Erythrocyte distribution width (RBC) [Ratio] 45.4 fl High 35.1-43.9 [facility] Glomerular filtration rate ( GFR) estimation/1.73 sq m using serum, plasma, or whole bOrdered By: Jairon Medel on 09-18-2024 GFR/1.73 sq M.predicted among non-blacks MDRD (S/P/Bld) [Vol rate/Area] 59 mL/min/{1.73_m2} Low >60 [facility] Comment on above: mL/min/1.73m2 CKD-EP I Creatinine Equation (2020) Hematocrit Auto (Bld) [Volum e fraction]Ordered By: Jairon Medel on 09-18-2024 Hematocrit (Bld) [Volume fraction] 31.9 % Low 37-47 [facility] Hemoglobin measurementOrdere d By: Jairon Medel on 09-18-2024 Hemoglobin (Bld) [Mass/Vol] 9.9 g/dL Low 12.0-15.0 [facility] Immature granulocytes/100 WB C Auto (Bld)Ordered By: Jairon Medel on 09-18-2024 Immature granulocytes/100 WBC (Bld) 0.400 % 0.0-0.9 [facility] Comment on above: IG% - Immature Granu locytes (promyelocytes, myelocytes and metamyelocytes) > 1% indicates that a LEFT SHIFT is Present. MCV (mean corpuscular volume ) determinationOrdered By: Jairon Medel on 09-18-2024 MCV (RBC) [Entitic vol] 91.7 fL 81-99 [facility] Mean corpuscular hemoglobin (MCH) determinationOrdered By: Jairon Medel 09-18-2024 MCH (RBC) [Entitic mass] 28.4 pg 27.0-32.0 [facility] Mean corpuscular hemoglobin concentration (MCHC) determinationOrdered By: Jairon Medel 09-18-2024 MCHC (RBC) [Mass/Vol] 31.0 g/dL Low 32-36 [facility] Mean platelet volume determi nationOrdered By: Jairon Medel on 09-18-2024 Platelet mean volume (Bld) [Entitic vol] 10.9 fL 6.2-12.0 [facility] Monocyte percentageOrdered B y: Jairon Medel on 09-18-2024 Monocytes/100 WBC (Bld) 7.9 % 0-10 [facility] Neutrophil percentageOrdered By: Jairon Medel on 09-18-2024 Neutrophils/100 WBC (Bld) 54.9 % 47-70 [facility] Nucleated red blood cell per centageOrdered By: Jairon Medel on 09-18-2024 Nucleated RBC/100 WBC (Bld) [Ratio] 0 % 0-5 [facility] Platelet countOrdered By: Pooja sreekanthbraden Medel on 09-18-2024 Platelets (Bld) [#/Vol] 247 10*3/uL 150-450 [facility] Potassium measurement (mass/ volume)Ordered By: Jairon Medel on 09-18-2024 Potassium (Unsp spec) [Mass/Vol] 4.1 mmol/L 3.3-5.1 [facility] RBC Auto (Bld) [#/Vol]Ordere d By: Jairon Medel on 09-18-2024 RBC (Bld) [#/Vol] 3.48 10*6/uL Low 4.2-5.4 [facility] Serum creatinine measurement (mass/volume)Ordered By: Jairon Medel on 09-18-2024 Creatinine [Mass/Vol] 0.94 mg/dL 0.70-1.20 [facility] Serum glucose measurement (m ass/volume)Ordered By: Jairon Medel on 09-18-2024 Glucose [Mass/Vol] 86 mg/dL 70-99 [facility] Serum or plasma calcium krissy urement (mass/volume)Ordered By: Jairon Medel on 09-18-2024 Calcium [Mass/Vol] 9.9 mg/dL 7.6-11.0 [facility] Serum or plasma urea nitroge n measurement (mass/volume)Ordered By: Jairon Medel on 09-18-2024 Urea nitrogen [Mass/Vol] 22 mg/dL High 4-19 [facility] Sodium levelOrdered By: Carrillo Medel on 09-18-2024 Sodium [Moles/Vol] 141 mmol/L 133-145 [facility] White blood cell (WBC) count Ordered By: Jairon Medel on 09-18-2024 WBC (Bld) [#/Vol] 5.7 10*3/uL 4.4-11.0 [facility] Bilirubin directOrdered By: Jairon Medel on 08-28-2024 Bilirubin.direct [Mass/Vol] 0.12 mg/dL 0.00-0.30 [facility] Bilirubin, totalOrdered By: Jairon Medel on 08-28-2024 Bilirubin [Mass/Vol] 0.23 mg/dL 0.00-1.30 [facility] Calculated very low density lipoprotein (VLDL) cholesterol measurementOrdered By: Jairon Medel on 08-28-2024 Calculated very low density lipoprotein (VLDL) cholesterol measurement 23 mg/dL 5-40 [facility] LDL calc ser/plasOrdered By: Jairon Medel on 08-28-2024 Cholesterol in LDL [Mass/Vol] 46 mg/dL [facility] Comment on above: Shabdflpng=049-562 m g/dL & Higher Cfbd=410 mg/dL or greater Laboratory - Chemistry and C hemistry - challengeOrdered By: Jairon Medel on 08-28-2024 AST [Catalytic activity/Vol] 15 U/L <32 [facility] Screening total cholesterol/ high density lipoprotein (HDL) cholesterol ratioOrdered By: Jairon Medel on 08-28-2024 Cholesterol.total/Luisa sterol in HDL [Mass ratio] 2.33 {ratio} [facility] Serum globulin measurementOr dered By: Jairon Medel on 08-28-2024 Globulin (S) [Mass/Vol] 2.2 g/dL 2.2-4.2 [facility] Serum or plasma alanine crane otransferase (ALT) measurementOrdered By: Jairon Medel on 08-28-2024 ALT [Catalytic activity/Vol] 9 U/L <35 [facility] Serum or plasma albumin krissy urement (mass/volume)Ordered By: Jairon Medel on 08-28-2024 Albumin [Mass/Vol] 3.7 g/dL 3.4-4.8 [facility] Serum or plasma alkaline luis sphatase measurementOrdered By: Jairon Medel on 08-28-2024 ALP [Catalytic activity/Vol] 73 U/L 35-104 [facility] Serum or plasma cholesterol in HDL measurement (mass/volume)Ordered By: Jairon Medel 08-28-2024 Cholesterol in HDL [Mass/Vol] 52 mg/dL >40 [facility] Comment on above: National Cholesterol Education Program (NCEP) guidelines:<40 mg/dL: Low HDL-cholesterol (major risk factor for CHD)>= 60 mg/dL: High HDL-cholesterol (negative risk factor for CHD)HDL-cholesterol is affected by a number of factors, e.g. smoking, exercise, hormones, sex and age. Serum or plasma cholesterol measurement (mass/volume)Ordered By: Jairon Medel on 08-28-2024 Cholesterol [Mass/Vol] 121 mg/dL <201 [facility] Comment on above: Cholesterol level, D esirable <200 mg/dLBorderline high cholesterol 200-239 mg/dLHigh cholesterol >=240 mg/dLRecommendations of the NCEP Adult Treatment Panel for the following risk-cutoff thresholds for the [place] population. Serum or plasma valproate me asurement (mass/volume)Ordered By: Jairon Medel on 08-28-2024 Valproate [Mass/Vol] 14 ug/mL Low 50-100 [facility] Comment on above: Valproic Acid concen trations >100 ug/mL are potentially toxic. Total proteinOrdered By: Masoud Medel on 08-28-2024 Protein [Mass/Vol] 5.9 g/dL 5.9-8.4 [facility] Triglycerides measurementOrd ered By: Jairon Medel 08-28-2024 Triglyceride [Mass/Vol] 115 mg/dL <199 [facility] Comment on above: The drugs N-Acetylcy steine and Metamizole may falsely depress this assay. Normal range: <150 mg/dLBorderline High: 150-199 mg/dLHigh: 200-499 mg/dLVery High: >500 mg/dL Absolute lymphocyte countOrd ered By: Jairon Medel on 08-21-2024 Lymphocytes Auto (Unsp spec) [#/Vol] 1.69 10*3/uL 0.83-4.51 [facility] Absolute neutrophil countOrd ered By: Jairon Medel on 08-21-2024 Neutrophils (Bld) [#/Vol] 4.3 10*3/uL 2.0-7.7 [facility] Anion gap in Serum or Plasma Ordered By: Jairon Medle on 08-21-2024 Anion gap [Moles/Vol] 10 mmol/L 5-15 [facility] Automated lymphocyte count a s percentage of total leukocytesOrdered By: Jairon Medel on 08-21-2024 Lymphocytes/100 WBC Auto (Unsp spec) 24.9 % 19-41 [facility] BUN/creatinine ratioOrdered By: Jairon Medel on 08-21-2024 Urea nitrogen/Creatinine [Mass ratio] 21.2 mg/mg High 10-20 [facility] Basophil percentageOrdered B y: Jairon Medel on 08-21-2024 Basophils/100 WBC (Bld) 0.7 % 0-1 [facility] Carbon dioxide, total [Moles /volume] in Central venous bloodOrdered By: Jairon Medel on 08-21-2024 CO2 [Moles/Vol] 24.4 mmol/L 21.0-32.0 [facility] Chloride assayOrdered By: Pooja Medel on 08-21-2024 Chloride [Moles/Vol] 108 mmol/L 98-108 [facility] Eosinophil percentageOrdered By: Jairon Medel on 08-21-2024 Eosinophils/100 WBC (Bld) 1.9 % 0-5 [facility] Erythrocyte distribution wid th ratioOrdered By: Jairon Medel on 08-21-2024 Erythrocyte distribution width (RBC) [Ratio] 14.2 % 11.6-14.6 [facility] Erythrocyte distribution wid th standard deviationOrdered By: Jairon Medel on 08-21-2024 Erythrocyte distribution width (RBC) [Ratio] 47.2 fl High 35.1-43.9 [facility] Glomerular filtration rate ( GFR) estimation/1.73 sq m using serum, plasma, or whole bOrdered By: Jairon Medel on 08-21-2024 GFR/1.73 sq M.predicted among non-blacks MDRD (S/P/Bld) [Vol rate/Area] 67 mL/min/{1.73_m2} >60 [facility] Comment on above: mL/min/1.73m2 CKD-EP I Creatinine Equation (2020) Hematocrit Auto (Bld) [Volum e fraction]Ordered By: Jairon Medel on 08-21-2024 Hematocrit (Bld) [Volume fraction] 31.9 % Low 37-47 [facility] Hemoglobin measurementOrdere d By: Jairon Medel on 08-21-2024 Hemoglobin (Bld) [Mass/Vol] 10.2 g/dL Low 12.0-15.0 [facility] Immature granulocytes/100 WB C Auto (Bld)Ordered By: Jairon Medel on 08-21-2024 Immature granulocytes/100 WBC (Bld) 0.100 % 0.0-0.9 [facility] Comment on above: IG% - Immature Granu locytes (promyelocytes, myelocytes and metamyelocytes) > 1% indicates that a LEFT SHIFT is Present. MCV (mean corpuscular volume ) determinationOrdered By: Jairon Medel on 08-21-2024 MCV (RBC) [Entitic vol] 91.7 fL 81-99 [facility] Mean corpuscular hemoglobin (MCH) determinationOrdered By: Jairon Medel 08-21-2024 MCH (RBC) [Entitic mass] 29.3 pg 27.0-32.0 [facility] Mean corpuscular hemoglobin concentration (MCHC) determinationOrdered By: Jairon Medel on 08-21-2024 MCHC (RBC) [Mass/Vol] 32.0 g/dL 32-36 [facility] Mean platelet volume determi nationOrdered By: Poojasreekanthmahadmakenzie Torojenifersophia on 08-21-2024 Platelet mean volume (Bld) [Entitic vol] 10.6 fL 6.2-12.0 [facility] Monocyte percentageOrdered B y: Carrillomahadmakenzie Torojenifersophia on 08-21-2024 Monocytes/100 WBC (Bld) 9.0 % 0-10 [facility] Neutrophil percentageOrdered By: Jairon Torojenifersophia on 08-21-2024 Neutrophils/100 WBC (Bld) 63.4 % 47-70 [facility] Nucleated red blood cell per centageOrdered By: Jairon Torojenifersophia on 08-21-2024 Nucleated RBC/100 WBC (Bld) [Ratio] 0 % 0-5 [facility] Platelet countOrdered By: Pooja margarette Cortezjenifersophia on 08-21-2024 Platelets (Bld) [#/Vol] 232 10*3/uL 150-450 [facility] Potassium measurement (mass/ volume)Ordered By: Jairon Medel on 08-21-2024 Potassium (Unsp spec) [Mass/Vol] 4.4 mmol/L 3.3-5.1 [facility] RBC Auto (Bld) [#/Vol]Ordere d By: Jairon Torojenifersophia on 08-21-2024 RBC (Bld) [#/Vol] 3.48 10*6/uL Low 4.2-5.4 [facility] Serum creatinine measurement (mass/volume)Ordered By: Jairon Medel on 08-21-2024 Creatinine [Mass/Vol] 0.85 mg/dL 0.70-1.20 [facility] Serum glucose measurement (m ass/volume)Ordered By: Jairon Medel on 08-21-2024 Glucose [Mass/Vol] 95 mg/dL 70-99 [facility] Serum or plasma calcium krissy urement (mass/volume)Ordered By: Jairon Medel on 08-21-2024 Calcium [Mass/Vol] 9.4 mg/dL 7.6-11.0 [facility] Serum or plasma urea nitroge n measurement (mass/volume)Ordered By: Jaiorn Medel on 08-21-2024 Urea nitrogen [Mass/Vol] 18 mg/dL 4-19 [facility] Sodium levelOrdered By: Carrillo feliciano Cortezdorcas on 08-21-2024 Sodium [Moles/Vol] 142 mmol/L 133-145 [facility] White blood cell (WBC) count Ordered By: Jairon Medel on 08-21-2024 WBC (Bld) [#/Vol] 6.8 10*3/uL 4.4-11.0 [facility] Emergency Department Summary on 07-24-2024 Emergency Department Summary [facility] Medical Records Department [address] [place] [address] Emergency Department Summary 07/24/24 MR#: [id number] Acct: [id number] Name: CT DALTON Rep #: [id number] : 1940 83 From: Jean Claude Harry [...] PO DAILY 04/20/17 04/27/17 0 8:00 History vwtdsotimnil-Ds-qgiv-m inerals 1 ea PO DAILY 04/20/17 Unknown [...] range of motion. 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 Neurologically she is awake and alert. She answers questions she does have dementia and some confusion. She does follow commands. Const Vital Signs: 07/24/24 01:24 07/24/24 01:24 Temperature 98 F Temperature Source Oral Pulse Rate 53 L Respirator (more content not included)... Normal [facility] HIP, UNI W/ Pelvis 2-3 Views on 07-24-2024 HIP, UNI W/ Pelvis 2-3 Views [facility] [address] [place], [place] [id number] HIP, UNI W/ Pelvis 2-3 Views MR#: [id number] Acct: [id number] Name: CT DALTON Rep #: [id number] : 1940 F 83 From: Lauri mason MD PCP: Dr. Jairon Medel MD Status: REG ER Study: HIP, UNI W/ Pelvis 2-3 Views Date of Exam: Exam# [id number] Ordering Dr: Jean Claude Harry MD PROCEDURE: [...] Right hip moderate degenerative changes. Reading Location: [place] [address] CC: Dr. Jairon Medel MD; Dr. 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 Automatic: Signed Normal [facility] Absolute lymphocyte countOrd ered By: Jairon Medel on 06-26-2024 Lymphocytes Auto (Unsp spec) [#/Vol] 2.05 10*3/uL 0.83-4.51 [facility] Absolute neutrophil countOrd ered By: Jairon Medel on 06-26-2024 Neutrophils (Bld) [#/Vol] 3.9 10*3/uL 2.0-7.7 [facility] Anion gap in Serum or Plasma Ordered By: Jairon Medel on 06-26-2024 Anion gap [Moles/Vol] 9 mmol/L 5-15 [facility] Automated lymphocyte count a s percentage of total leukocytesOrdered By: Jairon Medel on 06-26-2024 Lymphocytes/100 WBC Auto (Unsp spec) 30.5 % 19-41 [facility] BUN/creatinine ratioOrdered By: Jairon Medel on 06-26-2024 Urea nitrogen/Creatinine [Mass ratio] 20.9 mg/mg High 10-20 [facility] Basophil percentageOrdered B y: Jairon Medel on 06-26-2024 Basophils/100 WBC (Bld) 0.4 % 0-1 [facility] Carbon dioxide, total [Moles /volume] in Central venous bloodOrdered By: Jairon Medel on 06-26-2024 CO2 [Moles/Vol] 23.5 mmol/L 21.0-32.0 [facility] Chloride assayOrdered By: Pooja Medel on 06-26-2024 Chloride [Moles/Vol] 107 mmol/L 98-108 [facility] Eosinophil percentageOrdered By: sreekanthbrunswickmakenzie Medel on 06-26-2024 Eosinophils/100 WBC (Bld) 1.9 % 0-5 [facility] Erythrocyte distribution wid th ratioOrdered By: sreekanthbrunswickmakenzie Medel on 06-26-2024 Erythrocyte distribution width (RBC) [Ratio] 14.1 % 11.6-14.6 [facility] Erythrocyte distribution wid th standard deviationOrdered By: sreekanthbrunswickmakenzie Medel on 06-26-2024 Erythrocyte distribution width (RBC) [Ratio] 46.5 fl High 35.1-43.9 [facility] Glomerular filtration rate ( GFR) estimation/1.73 sq m using serum, plasma, or whole bOrdered By: [facility] on 06-26-2024 GFR/1.73 sq M.predicted among non-blacks MDRD (S/P/Bld) [Vol rate/Area] 55 mL/min/{1.73_m2} Low >60 [facility] Comment on above: mL/min/1.73m2 CKD-EP I Creatinine Equation (2020) Hematocrit Auto (Bld) [Volum e fraction]Ordered By: [facility] on 06-26-2024 Hematocrit (Bld) [Volume fraction] 32.7 % Low 37-47 [facility] Hemoglobin measurementOrdere d By: Jairon Medel on 06-26-2024 Hemoglobin (Bld) [Mass/Vol] 10.1 g/dL Low 12.0-15.0 [facility] Immature granulocytes/100 WB C Auto (Bld)Ordered By: Jairon Medel on 06-26-2024 Immature granulocytes/100 WBC (Bld) 0.400 % 0.0-0.9 [facility] Comment on above: IG% - Immature Granu locytes (promyelocytes, myelocytes and metamyelocytes) > 1% indicates that a LEFT SHIFT is Present. MCV (mean corpuscular volume ) determinationOrdered By: Jairon Medel on 06-26-2024 MCV (RBC) [Entitic vol] 90.3 fL 81-99 [facility] Mean corpuscular hemoglobin (MCH) determinationOrdered By: Jairon Medel on 06-26-2024 MCH (RBC) [Entitic mass] 27.9 pg 27.0-32.0 [facility] Mean corpuscular hemoglobin concentration (MCHC) determinationOrdered By: Jairon Medel on 06-26-2024 MCHC (RBC) [Mass/Vol] 30.9 g/dL Low 32-36 [facility] Mean platelet volume determi nationOrdered By: Jairon Medel on 06-26-2024 Platelet mean volume (Bld) [Entitic vol] 10.3 fL 6.2-12.0 [facility] Monocyte percentageOrdered B y: Jairon Medel on 06-26-2024 Monocytes/100 WBC (Bld) 8.8 % 0-10 [facility] Neutrophil percentageOrdered By: Jairon Medel on 06-26-2024 Neutrophils/100 WBC (Bld) 58.0 % 47-70 [facility] Nucleated red blood cell per centageOrdered By: Jairon Medel on 06-26-2024 Nucleated RBC/100 WBC (Bld) [Ratio] 0 % 0-5 [facility] Platelet countOrdered By: Pooja Medel on 06-26-2024 Platelets (Bld) [#/Vol] 242 10*3/uL 150-450 [facility] Potassium measurement (mass/ volume)Ordered By: Jairon Meedl on 06-26-2024 Potassium (Unsp spec) [Mass/Vol] 4.3 mmol/L 3.3-5.1 [facility] RBC Auto (Bld) [#/Vol]Ordere d By: Jairon Medel on 06-26-2024 RBC (Bld) [#/Vol] 3.62 10*6/uL Low 4.2-5.4 [facility] Serum creatinine measurement (mass/volume)Ordered By: Jairon Medel on 06-26-2024 Creatinine [Mass/Vol] 1.01 mg/dL 0.70-1.20 [facility] Serum glucose measurement (m ass/volume)Ordered By: Jairon Medel on 06-26-2024 Glucose [Mass/Vol] 89 mg/dL 70-99 [facility] Serum or plasma calcium krissy urement (mass/volume)Ordered By: Poojasreekanthmahadmakenzie Torojenifersophia on 06-26-2024 Calcium [Mass/Vol] 9.6 mg/dL 7.6-11.0 [facility] Serum or plasma urea nitroge n measurement (mass/volume)Ordered By: Poojamargarette Torojenifersophia on 06-26-2024 Urea nitrogen [Mass/Vol] 21 mg/dL High 4- [facility] Sodium levelOrdered By: Carrillo feliciano Cortezjenifersophia on 06-26-2024 Sodium [Moles/Vol] 140 mmol/L 133-145 [facility] White blood cell (WBC) count Ordered By: Jairon Torojenifersophia on 06-26-2024 WBC (Bld) [#/Vol] 6.7 10*3/uL 4.4-11.0 [facility] Absolute lymphocyte countOrd ered By: Jairon Torojenifersophia on 05-29-2024 Lymphocytes Auto (Unsp spec) [#/Vol] 2.09 10*3/uL 0.83-4.51 [facility] Absolute neutrophil countOrd ered By: Poojasreekanthmahadmakenzie Torojenifersophia on 05-29-2024 Neutrophils (Bld) [#/Vol] 3.4 10*3/uL 2.0-7.7 [facility] Anion gap in Serum or Plasma Ordered By: Jairon Medel on 05-29-2024 Anion gap [Moles/Vol] 10 mmol/L 5-15 [facility] Automated lymphocyte count a s percentage of total leukocytesOrdered By: Jairon Medel on 05-29-2024 Lymphocytes/100 WBC Auto (Unsp spec) 34.4 % - [facility] BUN/creatinine ratioOrdered By: Jairon Torojenifersophia on 05-29-2024 Urea nitrogen/Creatinine [Mass ratio] 16.9 mg/mg 10-20 [facility] Basophil percentageOrdered B y: Carrillomahadmakenzie Medel on 05-29-2024 Basophils/100 WBC (Bld) 1.2 % High 0-1 [facility] Bilirubin directOrdered By: Jairon Medel on 05-29-2024 Bilirubin.direct [Mass/Vol] 0.17 mg/dL 0.00-0.30 [facility] Bilirubin, totalOrdered By: Jairon Medel on 05-29-2024 Bilirubin [Mass/Vol] 0.35 mg/dL 0.00-1.30 [facility] Carbon dioxide, total [Moles /volume] in Central venous bloodOrdered By: Jairon Medel on 05-29-2024 CO2 [Moles/Vol] 25.1 mmol/L 21.0-32.0 [facility] Chloride assayOrdered By: Pooja Medel on 05-29-2024 Chloride [Moles/Vol] 105 mmol/L 98-108 [facility] Eosinophil percentageOrdered By: Jairon Medel 05-29-2024 Eosinophils/100 WBC (Bld) 1.6 % 0-5 [facility] Erythrocyte distribution wid th (RBC) [Ratio]Ordered By: Jairon Medel on 05-29-2024 Erythrocyte distribution width (RBC) [Entitic vol] 41.0 fL 35.1-43.9 [facility] Erythrocyte distribution wid th ratioOrdered By: Jairon Medel 05-29-2024 Erythrocyte distribution width (RBC) [Ratio] 13.1 % 11.6-14.6 [facility] Erythrocyte distribution wid th standard deviationOrdered By: Jairon Medel 05-29-2024 Erythrocyte distribution width (RBC) [Ratio] 41.0 fl 35.1-43.9 [facility] GFR/1.73 sq M.predicted hua g non-blacks MDRD (S/P/Bld) [Vol rate/Area]Ordered By: Jairon Medel on 05-29-2024 Estimated GFR (MDRD) Non-Af Amer 50 Low >60 [facility] Comment on above: mL/min/1.73m2 CKD-EP I Creatinine Equation (2020) Glomerular filtration rate ( GFR) estimation/1.73 sq m using serum, plasma, or whole bOrdered By: Jairon Medel on 05-29-2024 GFR/1.73 sq M.predicted among non-blacks MDRD (S/P/Bld) [Vol rate/Area] 50 mL/min/{1.73_m2} Low >60 [facility] Comment on above: mL/min/1.73m2 CKD-EP I Creatinine Equation (2020) Hematocrit Auto (Bld) [Volum e fraction]Ordered By: Jairon Medel on 05-29-2024 Hematocrit (Bld) [Volume fraction] 33.4 % Low 37-47 [facility] Hemoglobin measurementOrdere d By: Jairon Medel on 05-29-2024 Hemoglobin (Bld) [Mass/Vol] 10.9 g/dL Low 12.0-15.0 [facility] Immature granulocytes/100 WB C Auto (Bld)Ordered By: Jairon Medel on 05-29-2024 Immature granulocytes/100 WBC (Bld) 0.200 % 0.0-0.9 [facility] Comment on above: IG% - Immature Granu locytes (promyelocytes, myelocytes and metamyelocytes) > 1% indicates that a LEFT SHIFT is Present. Laboratory - Chemistry and C hemistry - challengeOrdered By: Jairon Medel on 05-29-2024 AST [Catalytic activity/Vol] 20 U/L <32 [facility] Lymphocytes Auto (Unsp spec) [#/Vol]Ordered By: Jairon Medel on 05-29-2024 Lymphocytes (Bld) [#/Vol] 2.09 10*3/uL 0.83-4.51 [facility] Lymphocytes/100 WBC Auto (Un sp spec)Ordered By: Jairon Medel on 05-29-2024 Lymphocytes/100 WBC (Bld) 34.4 % 19-41 [facility] MCV (mean corpuscular volume ) determinationOrdered By: Jairon Medel on 05-29-2024 MCV (RBC) [Entitic vol] 85.9 fL 81-99 [facility] Mean corpuscular hemoglobin (MCH) determinationOrdered By: Jairon Medel on 05-29-2024 MCH (RBC) [Entitic mass] 28.0 pg 27.0-32.0 [facility] Mean corpuscular hemoglobin concentration (MCHC) determinationOrdered By: Poojasreekanthmahadmakenzie Torojenifersophia on 05-29-2024 MCHC (RBC) [Mass/Vol] 32.6 g/dL 32-36 [facility] Mean platelet volume determi nationOrdered By: Goldiemakenzie Torojenifersophia on 05-29-2024 Platelet mean volume (Bld) [Entitic vol] 10.3 fL 6.2-12.0 [facility] Monocyte percentageOrdered B y: Goldiemakenzie Torojenifersophia on 05-29-2024 Monocytes/100 WBC (Bld) 7.6 % 0-10 [facility] Neutrophil percentageOrdered By: Goldiemakenzie Torojenifersophia on 05-29-2024 Neutrophils/100 WBC (Bld) 55.0 % 47-70 [facility] Nucleated red blood cell per centageOrdered By: Poojasreekanthmahadmakenzie Torojenifersophia on 05-29-2024 Nucleated RBC/100 WBC (Bld) [Ratio] 0 % 0-5 [facility] Platelet countOrdered By: Pooja margarette Cortezjenifersophia on 05-29-2024 Platelets (Bld) [#/Vol] 247 10*3/uL 150-450 [facility] Potassium (Unsp spec) [Mass/ Vol]Ordered By: Jairon Torojenifersophia on 05-29-2024 Potassium [Moles/Vol] 4.3 mmol/L 3.3-5.1 [facility] Potassium measurement (mass/ volume)Ordered By: Jairon Torojenifersophia on 05-29-2024 Potassium (Unsp spec) [Mass/Vol] 4.3 mmol/L 3.3-5.1 [facility] RBC Auto (Bld) [#/Vol]Ordere d By: Jairon Cortezjenifersophia on 05-29-2024 RBC (Bld) [#/Vol] 3.89 10*6/uL Low 4.2-5.4 [facility] Serum creatinine measurement (mass/volume)Ordered By: Jairon Torojenifersophia on 05-29-2024 Creatinine [Mass/Vol] 1.08 mg/dL 0.70-1.20 [facility] Serum globulin measurementOr dered By: Jairon Medel on 05-29-2024 Globulin (S) [Mass/Vol] 2.5 g/dL 2.2-4.2 [facility] Serum glucose measurement (m ass/volume)Ordered By: Jairon Medel on 05-29-2024 Glucose [Mass/Vol] 89 mg/dL 70-99 [facility] Serum or plasma alanine crane otransferase (ALT) measurementOrdered By: Jairon Medel on 05-29-2024 ALT [Catalytic activity/Vol] 11 U/L <35 [facility] Serum or plasma albumin krissy urement (mass/volume)Ordered By: Jairon Medel on 05-29-2024 Albumin [Mass/Vol] 4.0 g/dL 3.4-4.8 [facility] Serum or plasma alkaline luis sphatase measurementOrdered By: Jairon Medel on 05-29-2024 ALP [Catalytic activity/Vol] 62 U/L 35-104 [facility] Serum or plasma calcium krissy urement (mass/volume)Ordered By: Jairon Medel on 05-29-2024 Calcium [Mass/Vol] 9.8 mg/dL 7.6-11.0 [facility] Serum or plasma urea nitroge n measurement (mass/volume)Ordered By: Jairon Medel on 05-29-2024 Urea nitrogen [Mass/Vol] 18 mg/dL 4-19 [facility] Sodium levelOrdered By: Carrillo Medel on 05-29-2024 Sodium [Moles/Vol] 140 mmol/L 133-145 [facility] Total proteinOrdered By: Masoud Medel on 05-29-2024 Protein [Mass/Vol] 6.4 g/dL 5.9-8.4 [facility] White blood cell (WBC) count Ordered By: Jairon Medel on 05-29-2024 WBC (Bld) [#/Vol] 6.1 10*3/uL 4.4-11.0 [facility] Absolute lymphocyte countOrd ered By: Jairon Medel on 05-24-2024 Lymphocytes Auto (Unsp spec) [#/Vol] 1.90 10*3/uL 0.83-4.51 [facility] Absolute neutrophil countOrd ered By: Jairon Medel on 05-24-2024 Neutrophils (Bld) [#/Vol] 3.1 10*3/uL 2.0-7.7 [facility] Anion gap in Serum or Plasma Ordered By: Jairon Medel on 05-24-2024 Anion gap [Moles/Vol] 11 mmol/L 5-15 [facility] Automated lymphocyte count a s percentage of total leukocytesOrdered By: Jairon Medel on 05-24-2024 Lymphocytes/100 WBC Auto (Unsp spec) 33.6 % 19-41 [facility] BUN/creatinine ratioOrdered By: Jairon Medel on 05-24-2024 Urea nitrogen/Creatinine [Mass ratio] 19.7 mg/mg 10-20 [facility] Basophil percentageOrdered B y: Jairon Medel on 05-24-2024 Basophils/100 WBC (Bld) 1.1 % High 0-1 [facility] Bilirubin, totalOrdered By: Jairon Medel on 05-24-2024 Bilirubin [Mass/Vol] 0.29 mg/dL 0.00-1.30 [facility] Carbon dioxide, total [Moles /volume] in Central venous bloodOrdered By: Jairon Medel on 05-24-2024 CO2 [Moles/Vol] 23.5 mmol/L 21.0-32.0 [facility] Chloride assayOrdered By: Pooja Medel on 05-24-2024 Chloride [Moles/Vol] 106 mmol/L 98-108 [facility] Eosinophil percentageOrdered By: Jairon Medel on 05-24-2024 Eosinophils/100 WBC (Bld) 2.1 % 0-5 [facility] Erythrocyte distribution wid th (RBC) [Ratio]Ordered By: Jairon Medel on 05-24-2024 Erythrocyte distribution width (RBC) [Entitic vol] 41.3 fL 35.1-43.9 [facility] Erythrocyte distribution wid th ratioOrdered By: Jairon Medel on 05-24-2024 Erythrocyte distribution width (RBC) [Ratio] 13.2 % 11.6-14.6 [facility] Erythrocyte distribution wid th standard deviationOrdered By: Jairon Medel on 05-24-2024 Erythrocyte distribution width (RBC) [Ratio] 41.3 fl 35.1-43.9 [facility] GFR/1.73 sq M.predicted hua g non-blacks MDRD (S/P/Bld) [Vol rate/Area]Ordered By: Jairon Medel on 05-24-2024 Estimated GFR (MDRD) Non-Af Amer 52 Low >60 [facility] Comment on above: mL/min/1.73m2 CKD-EP I Creatinine Equation (2020) Glomerular filtration rate ( GFR) estimation/1.73 sq m using serum, plasma, or whole bOrdered By: Jairon Medel on 05-24-2024 GFR/1.73 sq M.predicted among non-blacks MDRD (S/P/Bld) [Vol rate/Area] 52 mL/min/{1.73_m2} Low >60 [facility] Comment on above: mL/min/1.73m2 CKD-EP I Creatinine Equation (2020) Hematocrit Auto (Bld) [Volum e fraction]Ordered By: Jairon Medel on 05-24-2024 Hematocrit (Bld) [Volume fraction] 33.2 % Low 37-47 [facility] Hemoglobin A1c percentageOrd ered By: Jairon Medel 05-24-2024 HbA1c (Bld) [Mass fraction] 5.5 % <5.7 [facility] Comment on above: Normal < 5.7 % Predi abetic 5.7 - 6.4 % Diabetic >or= 6.5 % Please note range changes. Hemoglobin measurementOrdere d By: Jairon Medel on 05-24-2024 Hemoglobin (Bld) [Mass/Vol] 10.7 g/dL Low 12.0-15.0 [facility] Immature granulocytes/100 WB C Auto (Bld)Ordered By: Jairon Medel 05-24-2024 Immature granulocytes/100 WBC (Bld) 0.200 % 0.0-0.9 [facility] Comment on above: IG% - Immature Granu locytes (promyelocytes, myelocytes and metamyelocytes) > 1% indicates that a LEFT SHIFT is Present. Laboratory - Chemistry and C hemistry - challengeOrdered By: Jairon Medel on 05-24-2024 AST [Catalytic activity/Vol] 21 U/L <32 [facility] Lymphocytes Auto (Unsp spec) [#/Vol]Ordered By: Jairon Medel on 05-24-2024 Lymphocytes (Bld) [#/Vol] 1.90 10*3/uL 0.83-4.51 [facility] Lymphocytes/100 WBC Auto (Un sp spec)Ordered By: Jairon Medel on 05-24-2024 Lymphocytes/100 WBC (Bld) 33.6 % 19-41 [facility] MCV (mean corpuscular volume ) determinationOrdered By: Jairon Medel on 05-24-2024 MCV (RBC) [Entitic vol] 86.2 fL 81-99 [facility] Mean corpuscular hemoglobin (MCH) determinationOrdered By: [facility] on 05-[facility]-2024 MCH (RBC) [Entitic mass] 27.8 pg 27.0-32.0 [facility] Mean corpuscular hemoglobin concentration (MCHC) determinationOrdered By: sreekanthbrunswickmakenzie Medel on 05-24-2024 MCHC (RBC) [Mass/Vol] 32.2 g/dL 32-36 [facility] Mean platelet volume determi nationOrdered By: Jairon Medel on 05-24-2024 Platelet mean volume (Bld) [Entitic vol] 10.2 fL 6.2-12.0 [facility] Monocyte percentageOrdered B y: Jairon Medel on 05-24-2024 Monocytes/100 WBC (Bld) 8.1 % 0-10 [facility] Neutrophil percentageOrdered By: Jairon Medel on 05-24-2024 Neutrophils/100 WBC (Bld) 54.9 % 47-70 [facility] Nucleated red blood cell per centageOrdered By: margarette Medel on 05-24-2024 Nucleated RBC/100 WBC (Bld) [Ratio] 0 % 0-5 [facility] Platelet countOrdered By: Pooja Medel on 05-24-2024 Platelets (Bld) [#/Vol] 264 10*3/uL 150-450 [facility] Potassium (Unsp spec) [Mass/ Vol]Ordered By: Jairon Medel on 05-24-2024 Potassium [Moles/Vol] 3.9 mmol/L 3.3-5.1 [facility] Potassium measurement (mass/ volume)Ordered By: Jairon Medel on 05-24-2024 Potassium (Unsp spec) [Mass/Vol] 3.9 mmol/L 3.3-5.1 [facility] RBC Auto (Bld) [#/Vol]Ordere d By: Jairon Medel on 05-24-2024 RBC (Bld) [#/Vol] 3.85 10*6/uL Low 4.2-5.4 [facility] Serum creatinine measurement (mass/volume)Ordered By: Jairon Medel on 05-24-2024 Creatinine [Mass/Vol] 1.05 mg/dL 0.70-1.20 [facility] Serum globulin measurementOr dered By: Jairon Medel 05-24-2024 Globulin (S) [Mass/Vol] 2.6 g/dL 2.2-4.2 [facility] Serum glucose measurement (m ass/volume)Ordered By: Jairon Medel on 05-24-2024 Glucose [Mass/Vol] 95 mg/dL 70-99 [facility] Serum or plasma alanine crane otransferase (ALT) measurementOrdered By: Jairon Medel on 05-24-2024 ALT [Catalytic activity/Vol] 11 U/L <35 [facility] Serum or plasma albumin krissy urement (mass/volume)Ordered By: Jairon Medel on 05-24-2024 Albumin [Mass/Vol] 4.0 g/dL 3.4-4.8 [facility] Serum or plasma albumin/glob ulin mass ratioOrdered By: Jairon Medel 05-24-2024 Albumin/Globulin [Mass ratio] 1.5 {ratio} 0.9-2.4 [facility] Serum or plasma alkaline luis sphatase measurementOrdered By: Jairon Medel on 05-24-2024 ALP [Catalytic activity/Vol] 67 U/L 35-104 [facility] Serum or plasma calcium krissy urement (mass/volume)Ordered By: Jairon Medel on 05-24-2024 Calcium [Mass/Vol] 9.9 mg/dL 7.6-11.0 [facility] Serum or plasma urea nitroge n measurement (mass/volume)Ordered By: Jairon Medel on 05-24-2024 Urea nitrogen [Mass/Vol] 21 mg/dL High 4-19 [facility] Sodium levelOrdered By: Carrillo Medel on 05-24-2024 Sodium [Moles/Vol] 141 mmol/L 133-145 [facility] Total proteinOrdered By: Masoud Medel on 05-24-2024 Protein [Mass/Vol] 6.6 g/dL 5.9-8.4 [facility] White blood cell (WBC) count Ordered By: Jairon Medel 05-24-2024 WBC (Bld) [#/Vol] 5.7 10*3/uL 4.4-11.0 [facility] Anion gap in Serum or Plasma Ordered By: Jairon Medel on 05-15-2024 Anion gap [Moles/Vol] 10 mmol/L 5-15 [facility] BUN/creatinine ratioOrdered By: Jairon Medel on 05-15-2024 Urea nitrogen/Creatinine [Mass ratio] 15.3 mg/mg 10-20 [facility] Carbon dioxide, total [Moles /volume] in Central venous bloodOrdered By: Jairon Medel on 05-15-2024 CO2 [Moles/Vol] 25.0 mmol/L 21.0-32.0 [facility] Chloride assayOrdered By: Pooja Medel on 05-15-2024 Chloride [Moles/Vol] 108 mmol/L 98-108 [facility] GFR/1.73 sq M.predicted hua g non-blacks MDRD (S/P/Bld) [Vol rate/Area]Ordered By: Jairon Medel on 05-15-2024 Estimated GFR (MDRD) Non-Af Amer 57 Low >60 [facility] Comment on above: mL/min/1.73m2 CKD-EP I Creatinine Equation (2020) Glomerular filtration rate ( GFR) estimation/1.73 sq m using serum, plasma, or whole bOrdered By: Jairon Medel on 05-15-2024 GFR/1.73 sq M.predicted among non-blacks MDRD (S/P/Bld) [Vol rate/Area] 57 mL/min/{1.73_m2} Low >60 [facility] Comment on above: mL/min/1.73m2 CKD-EP I Creatinine Equation (2020) Potassium (Unsp spec) [Mass/ Vol]Ordered By: Jairon Medel on 05-15-2024 Potassium [Moles/Vol] 3.8 mmol/L 3.3-5.1 [facility] Potassium measurement (mass/ volume)Ordered By: Jairon Medel on 05-15-2024 Potassium (Unsp spec) [Mass/Vol] 3.8 mmol/L 3.3-5.1 [facility] Serum creatinine measurement (mass/volume)Ordered By: Jairon Medel on 05-15-2024 Creatinine [Mass/Vol] 0.98 mg/dL 0.70-1.20 [facility] Serum glucose measurement (m ass/volume)Ordered By: Jairon Medel on 05-15-2024 Glucose [Mass/Vol] 87 mg/dL 70-99 [facility] Serum or plasma calcium krissy urement (mass/volume)Ordered By: Jairon Medel on 05-15-2024 Calcium [Mass/Vol] 9.8 mg/dL 7.6-11.0 [facility] Serum or plasma urea nitroge n measurement (mass/volume)Ordered By: Jairon Medel on 05-15-2024 Urea nitrogen [Mass/Vol] 15 mg/dL 4-19 [facility] Sodium levelOrdered By: Carrillo Medel on 05-15-2024 Sodium [Moles/Vol] 143 mmol/L 133-145 [facility] Absolute lymphocyte countOrd ered By: Poojasreekanthbraden Cortezjenifersophia on 05-01-2024 Lymphocytes Auto (Unsp spec) [#/Vol] 1.90 10*3/uL 0.83-4.51 [facility] Absolute neutrophil countOrd ered By: Carrillomahadmakenzie Torojenifersophia on 05-01-2024 Neutrophils (Bld) [#/Vol] 2.7 10*3/uL 2.0-7.7 [facility] Anion gap in Serum or Plasma Ordered By: Jairon Torojenifersophia on 05-01-2024 Anion gap [Moles/Vol] 11 mmol/L 5-15 [facility] Automated lymphocyte count a s percentage of total leukocytesOrdered By: Jairon Torojenifersophia on 05-01-2024 Lymphocytes/100 WBC Auto (Unsp spec) 35.5 % 19-41 [facility] BUN/creatinine ratioOrdered By: Jairon Torojenifersophia on 05-01-2024 Urea nitrogen/Creatinine [Mass ratio] 17.8 mg/mg 10-20 [facility] Basophil percentageOrdered B y: Carrillomahadmakenzie Torojenifersophia on 05-01-2024 Basophils/100 WBC (Bld) 1.5 % High 0-1 [facility] Carbon dioxide, total [Moles /volume] in Central venous bloodOrdered By: Jairon Torojenifersophia on 05-01-2024 CO2 [Moles/Vol] 23.3 mmol/L 21.0-32.0 [facility] Chloride assayOrdered By: Pooja Medel on 05-01-2024 Chloride [Moles/Vol] 107 mmol/L 98-108 [facility] Eosinophil percentageOrdered By: Crarillomahadmakenzie Torojenifersophia on 05-01-2024 Eosinophils/100 WBC (Bld) 2.2 % 0-5 [facility] Erythrocyte distribution wid th (RBC) [Ratio]Ordered By: Jairon Medel on 05-01-2024 Erythrocyte distribution width (RBC) [Entitic vol] 44.5 fL High 35.1-43.9 [facility] Erythrocyte distribution wid th ratioOrdered By: Jairon Medel on 05-01-2024 Erythrocyte distribution width (RBC) [Ratio] 13.0 % 11.6-14.6 [facility] Erythrocyte distribution wid th standard deviationOrdered By: Jairon Medel on 05-01-2024 Erythrocyte distribution width (RBC) [Ratio] 44.5 fl High 35.1-43.9 [facility] GFR/1.73 sq M.predicted hua g non-blacks MDRD (S/P/Bld) [Vol rate/Area]Ordered By: Jairon Medel on 05-01-2024 Estimated GFR (MDRD) Non-Af Amer 58 Low >60 [facility] Comment on above: mL/min/1.73m2 CKD-EP I Creatinine Equation (2020) Glomerular filtration rate ( GFR) estimation/1.73 sq m using serum, plasma, or whole bOrdered By: Jairon Medel on 05-01-2024 GFR/1.73 sq M.predicted among non-blacks MDRD (S/P/Bld) [Vol rate/Area] 58 mL/min/{1.73_m2} Low >60 [facility] Comment on above: mL/min/1.73m2 CKD-EP I Creatinine Equation (2020) Hematocrit Auto (Bld) [Volum e fraction]Ordered By: Jairon Medel on 05-01-2024 Hematocrit (Bld) [Volume fraction] 37.3 % 37-47 [facility] Hemoglobin measurementOrdere d By: Jairon Medel on 05-01-2024 Hemoglobin (Bld) [Mass/Vol] 11.3 g/dL Low 12.0-15.0 [facility] Immature granulocytes/100 WB C Auto (Bld)Ordered By: Jairon Medel on 05-01-2024 Immature granulocytes/100 WBC (Bld) 1.100 % High 0.0-0.9 [facility] Comment on above: IG% - Immature Granu locytes (promyelocytes, myelocytes and metamyelocytes) > 1% indicates that a LEFT SHIFT is Present. Lymphocytes Auto (Unsp spec) [#/Vol]Ordered By: Jairon Medel on 05-01-2024 Lymphocytes (Bld) [#/Vol] 1.90 10*3/uL 0.83-4.51 [facility] Lymphocytes/100 WBC Auto (Un sp spec)Ordered By: Jairon Medel on 05-01-2024 Lymphocytes/100 WBC (Bld) 35.5 % 19-41 [facility] MCV (mean corpuscular volume ) determinationOrdered By: Jairon Medel on 05-01-2024 MCV (RBC) [Entitic vol] 93.5 fL 81-99 [facility] Mean corpuscular hemoglobin (MCH) determinationOrdered By: Jairon Medel on 05-01-2024 MCH (RBC) [Entitic mass] 28.3 pg 27.0-32.0 [facility] Mean corpuscular hemoglobin concentration (MCHC) determinationOrdered By: Jairon Medel on 05-01-2024 MCHC (RBC) [Mass/Vol] 30.3 g/dL Low 32-36 [facility] Mean platelet volume determi nationOrdered By: Jairon Medel on 05-01-2024 Platelet mean volume (Bld) [Entitic vol] 10.2 fL 6.2-12.0 [facility] Monocyte percentageOrdered B y: Jairon Medel on 05-01-2024 Monocytes/100 WBC (Bld) 9.0 % 0-10 [facility] Neutrophil percentageOrdered By: Jairon Medel on 05-01-2024 Neutrophils/100 WBC (Bld) 50.7 % 47-70 [facility] Nucleated red blood cell per centageOrdered By: Jairon Medel on 05-01-2024 Nucleated RBC/100 WBC (Bld) [Ratio] 0 % 0-5 [facility] Platelet countOrdered By: Pooja Medel on 05-01-2024 Platelets (Bld) [#/Vol] 235 10*3/uL 150-450 [facility] Potassium (Unsp spec) [Mass/ Vol]Ordered By: Jairon Medel on 05-01-2024 Potassium [Moles/Vol] 4.3 mmol/L 3.3-5.1 [facility] Potassium measurement (mass/ volume)Ordered By: Jairon Medel on 05-01-2024 Potassium (Unsp spec) [Mass/Vol] 4.3 mmol/L 3.3-5.1 [facility] RBC Auto (Bld) [#/Vol]Ordere d By: Jairon Medel on 05-01-2024 RBC (Bld) [#/Vol] 3.99 10*6/uL Low 4.2-5.4 [facility] Serum creatinine measurement (mass/volume)Ordered By: Jairon Medel on 05-01-2024 Creatinine [Mass/Vol] 0.96 mg/dL 0.70-1.20 [facility] Serum glucose measurement (m ass/volume)Ordered By: Jairon Medel on 05-01-2024 Glucose [Mass/Vol] 89 mg/dL 70-99 [facility] Serum or plasma calcium krissy urement (mass/volume)Ordered By: Jairon Medel on 05-01-2024 Calcium [Mass/Vol] 9.8 mg/dL 7.6-11.0 [facility] Serum or plasma urea nitroge n measurement (mass/volume)Ordered By: Jairon Medel on 05-01-2024 Urea nitrogen [Mass/Vol] 17 mg/dL 4-19 [facility] Sodium levelOrdered By: Carrillo malcolmrajesh Gianfranco on 05-01-2024 Sodium [Moles/Vol] 141 mmol/L 133-145 [facility] White blood cell (WBC) count Ordered By: Jairon Medel on 05-01-2024 WBC (Bld) [#/Vol] 5.4 10*3/uL 4.4-11.0 [facility] Absolute lymphocyte countOrd ered By: Jairon Medel on 04-03-2024 Lymphocytes Auto (Unsp spec) [#/Vol] 1.70 10*3/uL 0.83-4.51 [facility] Absolute neutrophil countOrd ered By: Jairon Medel on 04-03-2024 Neutrophils (Bld) [#/Vol] 3.0 10*3/uL 2.0-7.7 [facility] Automated lymphocyte count a s percentage of total leukocytesOrdered By: Jairon Medel on 04-03-2024 Lymphocytes/100 WBC Auto (Unsp spec) 32.1 % 19-41 [facility] Basophil percentageOrdered B y: Jairon Medel on 04-03-2024 Basophils/100 WBC (Bld) 1.3 % High 0-1 [facility] Blood urea nitrogen (BUN)/cr eatinine ratioOrdered By: Jairon Medel on 04-03-2024 Urea nitrogen/Creatinine [Mass ratio] 21.1 mg/mg High 10-20 [facility] Carbon dioxide measurementOr dered By: Jairon Medel on 04-03-2024 CO2 [Moles/Vol] 27.0 mmol/L 21.0-32.0 [facility] Chloride measurementOrdered By: sreekanthbrunswickmakenzie Medel on 04-03-2024 Chloride [Moles/Vol] 111 mmol/L High 98-107 [facility] Eosinophil percentageOrdered By: Jairon Medel on 04-03-2024 Eosinophils/100 WBC (Bld) 2.3 % 0-5 [facility] Erythrocyte distribution wid th (RBC) [Ratio]Ordered By: Jairon Medel on 04-03-2024 Erythrocyte distribution width (RBC) [Entitic vol] 43.2 fL 35.1-43.9 [facility] Erythrocyte distribution wid th ratioOrdered By: Jairon Medel on 04-03-2024 Erythrocyte distribution width (RBC) [Ratio] 13.2 % 11.6-14.6 [facility] Erythrocyte distribution wid th standard deviationOrdered By: Jairon Medel on 04-03-2024 Erythrocyte distribution width (RBC) [Ratio] 43.2 fl 35.1-43.9 [facility] Estimated glomerular filtrat ion rate (GFR) AmericanOrdered By: Jairon Medel on 04-03-2024 Estimated GFR (MDRD) Amer 72 mL/min >60 [facility] Comment on above: GFR Calc Glomerular filtration rate ( GFR) estimationOrdered By: Jairon Medel on 04-03-2024 Estimated GFR (MDRD) Non-Af Amer 59 mL/min Low >60 [facility] Comment on above: Non- GFR Calc GFR/1.73 sq M.predicted among non-blacks MDRD (S/P/Bld) [Vol rate/Area] 59 mL/min/{1.73_m2} Low >60 [facility] Comment on above: Non- GFR Calc Glucose measurementOrdered B y: Jairon Medel on 04-03-2024 Glucose [Mass/Vol] 93 mg/dL 74-106 [facility] Hematocrit Auto (Bld) [Volum e fraction]Ordered By: Jairon Medel on 04-03-2024 Hematocrit (Bld) [Volume fraction] 31.6 % Low 37-47 [facility] Hemoglobin measurementOrdere d By: Jairon Medel on 04-03-2024 Hemoglobin (Bld) [Mass/Vol] 9.7 g/dL Low 12.0-15.0 [facility] Immature granulocytes/100 WB C Auto (Bld)Ordered By: margarette Medel on 04-03-2024 Immature granulocytes/100 WBC (Bld) 0.200 % 0.0-0.9 [facility] Comment on above: IG% - Immature Granu locytes (promyelocytes, myelocytes and metamyelocytes) > 1% indicates that a LEFT SHIFT is Present. Lymphocytes Auto (Unsp spec) [#/Vol]Ordered By: Jairon Medel on 04-03-2024 Lymphocytes (Bld) [#/Vol] 1.70 10*3/uL 0.83-4.51 [facility] Lymphocytes/100 WBC Auto (Un sp spec)Ordered By: Jairon Medel on 04-03-2024 Lymphocytes/100 WBC (Bld) 32.1 % 19-41 [facility] MCV (mean corpuscular volume ) determinationOrdered By: Jairon Medel on 04-03-2024 MCV (RBC) [Entitic vol] 91.1 fL 81-99 [facility] Mean corpuscular hemoglobin (MCH) determinationOrdered By: Jairon Medel on 04-03-2024 MCH (RBC) [Entitic mass] 28.0 pg 27.0-32.0 [facility] Mean corpuscular hemoglobin concentration (MCHC) determinationOrdered By: Jairon Medel on 04-03-2024 MCHC (RBC) [Mass/Vol] 30.7 g/dL Low 32-36 [facility] Mean platelet volume determi nationOrdered By: Jairon Medel on 04-03-2024 Platelet mean volume (Bld) [Entitic vol] 9.9 fL 6.2-12.0 [facility] Monocyte percentageOrdered B y: Jairon Medel on 04-03-2024 Monocytes/100 WBC (Bld) 8.3 % 0-10 [facility] Neutrophil percentageOrdered By: Jairon Medel on 04-03-2024 Neutrophils/100 WBC (Bld) 55.8 % 47-70 [facility] Nucleated red blood cell per centageOrdered By: Jairon Medel on 04-03-2024 Nucleated RBC/100 WBC (Bld) [Ratio] 0 % 0-5 [facility] Platelet countOrdered By: Pooja sreekanthbraden Medel on 04-03-2024 Platelets (Bld) [#/Vol] 229 10*3/uL 150-450 [facility] Potassium measurementOrdered By: Jairon Medel on 04-03-2024 Potassium [Moles/Vol] 4.4 mmol/L 3.5-5.1 [facility] RBC Auto (Bld) [#/Vol]Ordere d By: Jairno Medel on 04-03-2024 RBC (Bld) [#/Vol] 3.47 10*6/uL Low 4.2-5.4 [facility] Serum anion gap measurementO rdered By: Jairon Medel on 04-03-2024 Anion gap [Moles/Vol] 6 mmol/L 5-15 [facility] Serum or plasma calcium krissy urement (mass/volume)Ordered By: Jairon Medel on 04-03-2024 Calcium [Mass/Vol] 9.4 mg/dL 8.5-10.1 [facility] Serum or plasma creatinine m easurement (mass/volume)Ordered By: Jairon Medel on 04-03-2024 Creatinine [Mass/Vol] 0.95 mg/dL 0.55-1.02 [facility] Comment on above: The validity of the calculated GFR & GFRAA in patients over 70 years has not been determined. Clinical correlation is essential. Serum or plasma urea nitroge n measurement (mass/volume)Ordered By: Jairon Medel on 04-03-2024 Urea nitrogen [Mass/Vol] 20 mg/dL High 7-18 [facility] Sodium levelOrdered By: Carrillo braden Gianfranco on 04-03-2024 Sodium [Moles/Vol] 144 mmol/L 136-145 [facility] White blood cell (WBC) count Ordered By: Jairon Medel on 04-03-2024 WBC (Bld) [#/Vol] 5.3 10*3/uL 4.4-11.0 [facility] Absolute lymphocyte countOrd ered By: Jairon Medel on 03-27-2024 Lymphocytes Auto (Unsp spec) [#/Vol] 2.06 10*3/uL 0.83-4.51 [facility] Absolute neutrophil countOrd ered By: Jairon Medel on 03-27-2024 Neutrophils (Bld) [#/Vol] 3.3 10*3/uL 2.0-7.7 [facility] Automated lymphocyte count a s percentage of total leukocytesOrdered By: Jairon Medel on 03-27-2024 Lymphocytes/100 WBC Auto (Unsp spec) 33.5 % 19-41 [facility] Basophil percentageOrdered B y: Jairon Medel on 03-27-2024 Basophils/100 WBC (Bld) 0.8 % 0-1 [facility] Blood urea nitrogen (BUN)/cr eatinine ratioOrdered By: Jairon Medel on 03-27-2024 Urea nitrogen/Creatinine [Mass ratio] 19.3 mg/mg 10-20 [facility] Carbon dioxide measurementOr dered By: Jairon Medel on 03-27-2024 CO2 [Moles/Vol] 27.0 mmol/L 21.0-32.0 [facility] Chloride measurementOrdered By: Jairon Medel on 03-27-2024 Chloride [Moles/Vol] 110 mmol/L High 98-107 [facility] Eosinophil percentageOrdered By: Jairon Medel on 03-27-2024 Eosinophils/100 WBC (Bld) 2.3 % 0-5 [facility] Erythrocyte distribution wid th (RBC) [Ratio]Ordered By: Jairon Medel on 03-27-2024 Erythrocyte distribution width (RBC) [Entitic vol] 43.7 fL 35.1-43.9 [facility] Erythrocyte distribution wid th ratioOrdered By: Jairon Medel on 03-27-2024 Erythrocyte distribution width (RBC) [Ratio] 13.2 % 11.6-14.6 [facility] Erythrocyte distribution wid th standard deviationOrdered By: Jairon Medel on 03-27-2024 Erythrocyte distribution width (RBC) [Ratio] 43.7 fl 35.1-43.9 [facility] Estimated glomerular filtrat ion rate (GFR) AmericanOrdered By: Jairon Medel on 03-27-2024 Estimated GFR (MDRD) Amer 69 mL/min >60 [facility] Comment on above: GFR Calc Glomerular filtration rate ( GFR) estimationOrdered By: Jairon Medel on 03-27-2024 Estimated GFR (MDRD) Non-Af Amer 57 mL/min Low >60 [facility] Comment on above: Non- GFR Calc GFR/1.73 sq M.predicted among non-blacks MDRD (S/P/Bld) [Vol rate/Area] 57 mL/min/{1.73_m2} Low >60 [facility] Comment on above: Non- GFR Calc Glucose measurementOrdered B y: Jairon Medel on 03-27-2024 Glucose [Mass/Vol] 89 mg/dL 74-106 [facility] Hematocrit Auto (Bld) [Volum e fraction]Ordered By: Jairon Meedl on 03-27-2024 Hematocrit (Bld) [Volume fraction] 30.9 % Low 37-47 [facility] Hemoglobin measurementOrdere d By: Jairon Medel on 03-27-2024 Hemoglobin (Bld) [Mass/Vol] 9.6 g/dL Low 12.0-15.0 [facility] Immature granulocytes/100 WB C Auto (Bld)Ordered By: Jairon Medel on 03-27-2024 Immature granulocytes/100 WBC (Bld) 0.500 % 0.0-0.9 [facility] Comment on above: IG% - Immature Granu locytes (promyelocytes, myelocytes and metamyelocytes) > 1% indicates that a LEFT SHIFT is Present. Lymphocytes Auto (Unsp spec) [#/Vol]Ordered By: Jairon Medel on 03-27-2024 Lymphocytes (Bld) [#/Vol] 2.06 10*3/uL 0.83-4.51 [facility] Lymphocytes/100 WBC Auto (Un sp spec)Ordered By: Jairon Medel on 03-27-2024 Lymphocytes/100 WBC (Bld) 33.5 % 19-41 [facility] MCV (mean corpuscular volume ) determinationOrdered By: Jairon Medel on 03-27-2024 MCV (RBC) [Entitic vol] 90.1 fL 81-99 [facility] Mean corpuscular hemoglobin (MCH) determinationOrdered By: Jairon Medel on 03-27-2024 MCH (RBC) [Entitic mass] 28.0 pg 27.0-32.0 [facility] Mean corpuscular hemoglobin concentration (MCHC) determinationOrdered By: Jairon Medel on 03-27-2024 MCHC (RBC) [Mass/Vol] 31.1 g/dL Low 32-36 [facility] Mean platelet volume determi nationOrdered By: Jairon Medel on 03-27-2024 Platelet mean volume (Bld) [Entitic vol] 10.2 fL 6.2-12.0 [facility] Monocyte percentageOrdered B y: Jairon Medel on 03-27-2024 Monocytes/100 WBC (Bld) 9.6 % 0-10 [facility] Neutrophil percentageOrdered By: Jairon Medel on 03-27-2024 Neutrophils/100 WBC (Bld) 53.3 % 47-70 [facility] Nucleated red blood cell per centageOrdered By: Jairon Medel on 03-27-2024 Nucleated RBC/100 WBC (Bld) [Ratio] 0 % 0-5 [facility] Platelet countOrdered By: Pooja Medel on 03-27-2024 Platelets (Bld) [#/Vol] 235 10*3/uL 150-450 [facility] Potassium measurementOrdered By: Jairon Medel on 03-27-2024 Potassium [Moles/Vol] 4.0 mmol/L 3.5-5.1 [facility] RBC Auto (Bld) [#/Vol]Ordere d By: Jairon Medel on 03-27-2024 RBC (Bld) [#/Vol] 3.43 10*6/uL Low 4.2-5.4 [facility] Serum anion gap measurementO rdered By: Jairon Medel on 03-27-2024 Anion gap [Moles/Vol] 6 mmol/L 5-15 [facility] Serum or plasma calcium krissy urement (mass/volume)Ordered By: Jairon Medel on 03-27-2024 Calcium [Mass/Vol] 9.3 mg/dL 8.5-10.1 [facility] Serum or plasma creatinine m easurement (mass/volume)Ordered By: Jairon Medel on 03-27-2024 Creatinine [Mass/Vol] 0.98 mg/dL 0.55-1.02 [facility] Comment on above: The validity of the calculated GFR & GFRAA in patients over 70 years has not been determined. Clinical correlation is essential. Serum or plasma urea nitroge n measurement (mass/volume)Ordered By: Jairon Medel on 03-27-2024 Urea nitrogen [Mass/Vol] 19 mg/dL High 7-18 [facility] Sodium levelOrdered By: Carrillo Medel on 03-27-2024 Sodium [Moles/Vol] 143 mmol/L 136-145 [facility] White blood cell (WBC) count Ordered By: Jairon Medel on 03-27-2024 WBC (Bld) [#/Vol] 6.2 10*3/uL 4.4-11.0 [facility] 28-KN-Waennwk DOrdered By: Sophia claudia Gianfranco on 02-28-2024 Vitamin D 25-Hydroxy 60.8 ng/mL [facility] Comment on above: Vitamin D 25(OH) Sta tus Range Deficiency <20 ng/mL (50nmol/L) Insufficiency 20 - 30 ng/mL (50 - 75 nmol/L) Sufficiency 30 - 100 ng/mL (75 - 250 nmol/L) Toxicity >100 ng/mL (>250 nmol/L) Absolute lymphocyte countOrd ered By: Jairon Medel on 02-28-2024 Lymphocytes Auto (Unsp spec) [#/Vol] 1.75 10*3/uL 0.83-4.51 [facility] Absolute neutrophil countOrd ered By: Jairon Medel on 02-28-2024 Neutrophils (Bld) [#/Vol] 3.9 10*3/uL 2.0-7.7 [facility] Albumin to globulin ratioOrd ered By: Poojasreekanthmahadmakenzie Medel on 02-28-2024 Albumin/Globulin [Mass ratio] 1.0 {ratio} 0.9-2.4 [facility] Automated lymphocyte count a s percentage of total leukocytesOrdered By: Jairon Medel on 02-28-2024 Lymphocytes/100 WBC Auto (Unsp spec) 27.3 % 19-41 [facility] Basophil percentageOrdered B y: Jairon Medel on 02-28-2024 Basophils/100 WBC (Bld) 0.8 % 0-1 [facility] Bilirubin, totalOrdered By: Poojamargarette Medel on 02-28-2024 Bilirubin [Mass/Vol] 0.20 mg/dL 0.20-1.00 [facility] Comment on above: For patients on eltr ombopag therapy, use of Dimension [place] TBIL is not recommended. Blood urea nitrogen (BUN)/cr eatinine ratioOrdered By: Jairon Medel on 02-28-2024 Urea nitrogen/Creatinine [Mass ratio] 24.1 mg/mg High 10-20 [facility] Carbon dioxide measurementOr dered By: Jairon Medel on 02-28-2024 CO2 [Moles/Vol] 27.0 mmol/L 21.0-32.0 [facility] Chloride measurementOrdered By: Jairon Medel on 02-28-2024 Chloride [Moles/Vol] 111 mmol/L High 98-107 [facility] Eosinophil percentageOrdered By: Jairon Medel on 02-28-2024 Eosinophils/100 WBC (Bld) 2.3 % 0-5 [facility] Erythrocyte distribution wid th (RBC) [Ratio]Ordered By: Jairon Medel on 02-28-2024 Erythrocyte distribution width (RBC) [Entitic vol] 43.7 fL 35.1-43.9 [facility] Erythrocyte distribution wid th ratioOrdered By: Jairon Medel on 02-28-2024 Erythrocyte distribution width (RBC) [Ratio] 13.4 % 11.6-14.6 [facility] Erythrocyte distribution wid th standard deviationOrdered By: Jairon Medel on 02-28-2024 Erythrocyte distribution width (RBC) [Ratio] 43.7 fl 35.1-43.9 [facility] Estimated glomerular filtrat ion rate (GFR) AmericanOrdered By: Jairon Medel on 02-28-2024 Estimated GFR (MDRD) Amer 72 mL/min >60 [facility] Comment on above: GFR Calc Glomerular filtration rate ( GFR) estimationOrdered By: Jairon Medel on 02-28-2024 Estimated GFR (MDRD) Non-Af Amer 59 mL/min Low >60 [facility] Comment on above: Non- GFR Calc GFR/1.73 sq M.predicted among non-blacks MDRD (S/P/Bld) [Vol rate/Area] 59 mL/min/{1.73_m2} Low >60 [facility] Comment on above: Non- GFR Calc Glucose measurementOrdered B y: Jairon Medel on 02-28-2024 Glucose [Mass/Vol] 93 mg/dL 74-106 [facility] Hematocrit Auto (Bld) [Volum e fraction]Ordered By: Jairon Medel on 02-28-2024 Hematocrit (Bld) [Volume fraction] 32.1 % Low 37-47 [facility] Hemoglobin measurementOrdere d By: Jairon Medel on 02-28-2024 Hemoglobin (Bld) [Mass/Vol] 9.9 g/dL Low 12.0-15.0 [facility] High density lipoprotein (HD L) measurementOrdered By: Jairon Medel on 02-28-2024 Cholesterol in HDL [Mass/Vol] 58 mg/dL >40 [facility] Comment on above: The drugs N-Acetylcy steine and Metamizole may falsely depress this assay. Reference Range HDL <40 mg/dL Low HDL Cholesterol HDL >or= 60 mg/dL High HDL Cholesterol Immature granulocytes/100 WB C Auto (Bld)Ordered By: Jairon Medel on 02-28-2024 Immature granulocytes/100 WBC (Bld) 0.300 % 0.0-0.9 [facility] Comment on above: IG% - Immature Granu locytes (promyelocytes, myelocytes and metamyelocytes) > 1% indicates that a LEFT SHIFT is Present. Laboratory - Chemistry and C hemistry - challengeOrdered By: Jairon Medel on 02-28-2024 AST [Catalytic activity/Vol] 15 U/L 15-37 [facility] Low density lipoprotein (LDL ) cholesterol measurementOrdered By: Jairon Medel on 02-28-2024 Cholesterol in LDL [Mass/Vol] 67 mg/dL 0-130 [facility] Lymphocytes Auto (Unsp spec) [#/Vol]Ordered By: Jairon Medel on 02-28-2024 Lymphocytes (Bld) [#/Vol] 1.75 10*3/uL 0.83-4.51 [facility] Lymphocytes/100 WBC Auto (Un sp spec)Ordered By: Jairon Medel on 02-28-2024 Lymphocytes/100 WBC (Bld) 27.3 % 19-41 [facility] MCV (mean corpuscular volume ) determinationOrdered By: Jairon Medel on 02-28-2024 MCV (RBC) [Entitic vol] 89.4 fL 81-99 [facility] Mean corpuscular hemoglobin (MCH) determinationOrdered By: Jairon Medel on 02-28-2024 MCH (RBC) [Entitic mass] 27.6 pg 27.0-32.0 [facility] Mean corpuscular hemoglobin concentration (MCHC) determinationOrdered By: Jairon Medel on 02-28-2024 MCHC (RBC) [Mass/Vol] 30.8 g/dL Low 32-36 [facility] Mean platelet volume determi nationOrdered By: Jairon Medel on 02-28-2024 Platelet mean volume (Bld) [Entitic vol] 9.6 fL 6.2-12.0 [facility] Monocyte percentageOrdered B y: Jairon Medel on 02-28-2024 Monocytes/100 WBC (Bld) 8.7 % 0-10 [facility] Neutrophil percentageOrdered By: Jairon Medel on 02-28-2024 Neutrophils/100 WBC (Bld) 60.6 % 47-70 [facility] Nucleated red blood cell per centageOrdered By: Jairon Medel on 02-28-2024 Nucleated RBC/100 WBC (Bld) [Ratio] 0 % 0-5 [facility] Platelet countOrdered By: Pooja Medel on 02-28-2024 Platelets (Bld) [#/Vol] 261 10*3/uL 150-450 [facility] Potassium measurementOrdered By: Jairon Medel on 02-28-2024 Potassium [Moles/Vol] 4.1 mmol/L 3.5-5.1 [facility] RBC Auto (Bld) [#/Vol]Ordere d By: Jairon Medel on 02-28-2024 RBC (Bld) [#/Vol] 3.59 10*6/uL Low 4.2-5.4 [facility] Serum anion gap measurementO rdered By: Jairon Medel on 02-28-2024 Anion gap [Moles/Vol] 4 mmol/L Low 5-15 [facility] Serum globulin measurementOr dered By: Jairon Medel on 02-28-2024 Globulin (S) [Mass/Vol] 2.9 g/dL 2.2-4.2 [facility] Serum or plasma alanine crane otransferase (ALT) measurementOrdered By: Jairon Medel on 02-28-2024 ALT [Catalytic activity/Vol] 17 U/L 13-56 [facility] Serum or plasma albumin krissy urement (mass/volume)Ordered By: Jairon Medel on 02-28-2024 Albumin [Mass/Vol] 2.8 g/dL Low 3.2-5.0 [facility] Serum or plasma alkaline luis sphatase measurementOrdered By: Jairon Medel on 02-28-2024 ALP [Catalytic activity/Vol] 63 U/L 45-117 [facility] Serum or plasma calcium krissy urement (mass/volume)Ordered By: Jairon Medel on 02-28-2024 Calcium [Mass/Vol] 9.6 mg/dL 8.5-10.1 [facility] Serum or plasma cholesterol measurement (mass/volume)Ordered By: Jairon Medel on 02-28-2024 Cholesterol [Mass/Vol] 134 mg/dL <200 [facility] Comment on above: <200 mg/dL Desirable 200-240 mg/dL Borderline >240 mg/dL High Risk Serum or plasma creatinine m easurement (mass/volume)Ordered By: Jairon Medel on 02-28-2024 Creatinine [Mass/Vol] 0.95 mg/dL 0.55-1.02 [facility] Comment on above: The validity of the calculated GFR & GFRAA in patients over 70 years has not been determined. Clinical correlation is essential. Serum or plasma urea nitroge n measurement (mass/volume)Ordered By: Jairon Medel on 02-28-2024 Urea nitrogen [Mass/Vol] 23 mg/dL High 7-18 [facility] Sodium levelOrdered By: Carrillo Medel on 02-28-2024 Sodium [Moles/Vol] 143 mmol/L 136-145 [facility] Total proteinOrdered By: Masoud Medel on 02-28-2024 Protein [Mass/Vol] 5.7 g/dL Low 6.4-8.2 [facility] Triglycerides measurementOrd ered By: Jairon Medel on 02-28-2024 Triglyceride [Mass/Vol] 43 mg/dL <199 [facility] Comment on above: The drugs N-Acetylcy steine and Metamizole may falsely depress this assay.Serum Triglycerides Reference Interval Normal <150 mg/dL Borderline high 150 - 199 mg/dL High 200 - 499 mg/dL Very High > or = 500 mg/dL Valproate levelOrdered By: Sophia claudia Cortezjenifersophia on 02-28-2024 Valproic Acid (Depakene) Level 26 ug/mL Low 50-100 [facility] Very low density lipoprotein (VLDL) cholesterol measurementOrdered By: Jairon Cortezjenifersophia on 02-28-2024 Very low density lipoprotein (VLDL) cholesterol measurement 9 mg/dL 5-40 [facility] VLDL Cholesterol 9 mg/dL 5-40 [facility] White blood cell (WBC) count Ordered By: Carrillomahadmakenzie Medel on 02-28-2024 WBC (Bld) [#/Vol] 6.4 10*3/uL 4.4-11.0 [facility] .Auto Diffon 02-10-2024 Basophil, Absolute 0.1 10 3/mcL Normal 0.0-0.2 [facility] Comment on above: Performed By: #### B MP, MG, ANEU, ADIFF, CBC, GFR ####[address] [place], [place] [address] Basophils/100 WBC (Bld) 1.1 % Normal 0.0-2.5 [facility] Comment on above: Performed By: #### B MP, MG, ANEU, ADIFF, CBC, GFR ####[address] [place], [place] [address] Eosinophil, Absolute 0.1 10 3/mcL Normal 0.0-0.7 [facility] Comment on above: Performed By: #### B MP, MG, ANEU, ADIFF, CBC, GFR ####[address] [place], [place] [address] Eosinophils/100 WBC (Bld) 1.8 % Normal 0.0-7.0 [facility] Comment on above: Performed By: #### B MP, MG, ANEU, ADIFF, CBC, GFR ####[address] [place], [place] [address] Lymphocyte, Absolute 1.4 10 3/mcL Normal 0.9-4.3 [facility] Comment on above: Performed By: #### B MP, MG, ANEU, ADIFF, CBC, GFR ####[address] [address] [address] Lymphocytes/100 WBC (Bld) 25.4 % Normal 20.0-40.0 [facility] Comment on above: Performed By: #### B MP, MG, ANEU, ADIFF, CBC, GFR ####[address] [place], [place] [address] Monocyte, Absolute 0.4 10 3/mcL Normal 0.1-1.4 [facility] Comment on above: Performed By: #### B MP, MG, ANEU, ADIFF, CBC, GFR ####[address] [address] Monocytes/100 WBC (Bld) 7.4 % Normal 2.0-13.0 [facility] Comment on above: Performed By: #### B MP, MG, ANEU, ADIFF, CBC, GFR ####[address] [address] Neutrophils/100 WBC (Bld) 64.3 % Normal 50.0-75.0 [facility] Comment on above: Performed By: #### B MP, MG, ANEU, ADIFF, CBC, GFR ####[address] [address] .GFRon 02-10-2024 GFR 73 ml/min/1.73sqm Normal [facility] Comment on above: Result Comment: GFR [...] B MP, MG, ANEU, ADIFF, CBC, GFR ####[address] [place], [place] [address] GFR Non- 60 ml/min/1.73sqm Normal [facility] Comment on above: Result Comment: GFR [...] B MP, MG, ANEU, ADIFF, CBC, GFR ####[address] [place], [place] [address] .NEUABSon 02-10-2024 Neutrophil, Absolute 3.7 10 3/mcL Normal 2.3-8.1 [facility] Comment on above: Performed By: #### B MP, MG, ANEU, ADIFF, CBC, GFR ####[address] [place], [place] [address] BMPon 02-10-2024 BUN/Creatinine Ratio 25 ratio Normal 7-27 [facility] Comment on above: Performed By: #### B MP, MG, ANEU, ADIFF, CBC, GFR ####[address] [address] Calcium [Mass/Vol] 10.0 mg/dL Normal 8.4-10.2 [facility] Comment on above: Performed By: #### B MP, MG, ANEU, ADIFF, CBC, GFR ####[address] [place], [place] [address] Chloride [Moles/Vol] 107 mmol/L Normal 98-107 [facility] Comment on above: Performed By: #### B MP, MG, ANEU, ADIFF, CBC, GFR ####[address] [address] CO2 [Moles/Vol] 30 mmol/L Normal 23-31 [facility] Comment on above: Performed By: #### B MP, MG, ANEU, ADIFF, CBC, GFR ####[address] [address] Creatinine [Mass/Vol] 0.89 mg/dL Normal 0.55-1.02 [facility] Comment on above: Result Comment: Test ing performed on Siemens Dimension EXL analyzer using a modified kinetic Dora technique. Performed By: #### B MP, MG, ANEU, ADIFF, CBC, GFR ####[address] [address] Electrolyte Balance 8.0 mEq/L Normal 4.0-15.0 [facility] Comment on above: Performed By: #### B MP, MG, ANEU, ADIFF, CBC, GFR ####[address] [address] Glucose [Mass/Vol] 111 mg/dL High 83-110 [facility] Comment on above: Performed By: #### B MP, MG, ANEU, ADIFF, CBC, GFR ####[id number] [address] Potassium [Moles/Vol] 4.0 mmol/L Normal 3.5-5.1 [facility] Comment on above: Performed By: #### B MP, MG, ANEU, ADIFF, CBC, GFR ####[address] [address] Sodium [Moles/Vol] 145 mmol/L Normal 136-145 [facility] Comment on above: Performed By: #### B MP, MG, ANEU, ADIFF, CBC, GFR ####[address] [place] [address] Urea nitrogen [Mass/Vol] 22 mg/dL High 7-18 [facility] Comment on above: Performed By: #### B MP, MG, ANEU, ADIFF, CBC, GFR ####[address] [place] [address] CBCon 02-10-2024 Erythrocyte distribution width (RBC) [Ratio] 14.1 % Normal 11.5-15.5 [facility] Comment on above: Performed By: #### B MP, MG, ANEU, ADIFF, CBC, GFR ####Jerrell [address] [place] [address] Hematocrit (Bld) [Volume fraction] 33.2 % Low 34.0-46.0 [facility] Comment on above: Performed By: #### B MP, MG, ANEU, ADIFF, CBC, GFR ####[place] [address] Hgb 11.3 G/dL Low 12.0-16.0 [facility] Comment on above: Performed By: #### B MP, MG, ANEU, ADIFF, CBC, GFR ####[place] [address] MCH (RBC) [Entitic mass] 28.8 pg Normal 27.0-33.0 [facility] Comment on above: Performed By: #### B MP, MG, ANEU, ADIFF, CBC, GFR ####Jerrell [address]ff[address] [place] [address] MCHC 34.1 G/dL Normal 32.0-36.0 [facility] Comment on above: Performed By: #### B MP, MG, ANEU, ADIFF, CBC, GFR ####Jerrell [address] [id number] MCV (RBC) [Entitic vol] 84.5 fL Normal 80.0-99.0 [facility] Comment on above: Performed By: #### B MP, MG, ANEU, ADIFF, CBC, GFR ####[address]rell [address] [place], [place] [address] Platelet 272 10 3/mcL Normal 150-450 [facility] Comment on above: Performed By: #### B MP, MG, ANEU, ADIFF, CBC, GFR ####Jerrell [address] [place], [place] [address] Platelet mean volume (Bld) [Entitic vol] 7.7 fL Normal 6.6-10.5 [facility] Comment on above: Performed By: #### B MP, MG, ANEU, ADIFF, CBC, GFR ####[address]rell [address] [place], [place] [address] RBC 3.93 10 6/mcL Low 4.10-5.30 [facility] Comment on above: Performed By: #### B MP, MG, ANEU, ADIFF, CBC, GFR ####Jerrell [address]irt[address]fr[address] [place], [place] [address] WBC 5.7 10 3/mcL Normal 4.5-10.8 [facility] Comment on above: Performed By: #### B MP, MG, ANEU, ADIFF, CBC, GFR ####[facility] [place], [place] [address] LABORATORYOrdered By: SYSTEM SYSTEM on 02-10-2024 Basophils [...] 02-10-2024 Magnesium [Mass/Vol] 1.7 mg/dL Low 1.8-2.4 [facility] Comment on above: Performed By: #### B MP, MG, ANEU, ADIFF, CBC, GFR ####Jerrell [address] [place], [place] [address] .Auto Diffon 02-09-2024 Basophil, Absolute 0.1 10 3/mcL Normal 0.0-0.2 [facility] Comment on above: Performed By: #### B JEISON, MDW, GFR, ANEU, TROPHS, PBNP, CBC, ADIFF ####Jerrell [address] [place], [place] [address] Basophils/100 WBC (Bld) 1.1 % Normal 0.0-2.5 [facility] Comment on above: Performed By: #### B JEISON, W, GFR, ANEU, TROPHS, PBNP, CBC, ADIFF ####Jerrell [address] [place], [place] [address] Eosinophil, Absolute 0.1 10 3/mcL Normal 0.0-0.7 [facility] Comment on above: Performed By: #### B JEISON, W, GFR, ANEU, TROPHS, PBNP, CBC, ADIFF ####Jerrell [address] [place], [place] [address] Eosinophils/100 WBC (Bld) 1.6 % Normal 0.0-7.0 [facility] Comment on above: Performed By: #### B JEISON, MDW, GFR, ANEU, TROPHS, PBNP, CBC, ADIFF ####Warren [address] [place], [place] [address] Lymphocyte, Absolute 2.2 10 3/mcL Normal 0.9-4.3 [facility] Comment on above: Performed By: #### B JEISON, NAFISA, GFR, ANEU, TROPHS, PBNP, CBC, ADIFF ####[facility] [place], [place] [address] Lymphocytes/100 WBC (Bld) 29.4 % Normal 20.0-40.0 [facility] Comment on above: Performed By: #### B JEISON, W, GFR, ANEU, TROPHS, PBNP, CBC, ADIFF ####[facility] [place], [place] [address] Monocyte, Absolute 0.7 10 3/mcL Normal 0.1-1.4 [facility] Comment on above: Performed By: #### B JEISON, NAFISA, GFR, ANEU, TROPHS, PBNP, CBC, ADIFF ####Jerrell [address] [place], [place] [address] Monocytes/100 WBC (Bld) 9.6 % Normal 2.0-13.0 [facility] Comment on above: Performed By: #### B NAFISA MCHUGH, GFR, ANEU, TROPHS, PBNP, CBC, ADIFF ####Jerrell [address] [place], [place] [address] Neutrophils/100 WBC (Bld) 58.3 % Normal 50.0-75.0 [facility] Comment on above: Performed By: #### B NAFISA MCHUGH, GFR, ANEU, TROPHS, PBNP, CBC, ADIFF ####[facility] [place], [place] [address] .GFRon 02-09-2024 GFR 67 ml/min/1.73sqm Normal [facility] Comment on above: Result Comment: GFR [...] GFR, ANEU, TROPHS, PBNP, CBC, ADIFF ####Jerrell [address] [place], [place] [address] GFR Non- 55 ml/min/1.73sqm Normal [facility] Comment on above: Result Comment: GFR [...] MDW, GFR, ANEU, TROPHS, PBNP, CBC, ADIFF ####Warren [address] [place], [place] [address] .MDWon 02-09-2024 Monocyte Distribution Width 17.09 Normal 0.00-20.00 [facility] Comment on above: Result Comment: For ED adult patients suspected of sepsis, MDW<=20.0 does not rule out sepsis or risk of sepsis Performed By: #### B MP, MDW, GFR, ANEU, TROPHS, PBNP, CBC, ADIFF ####Warren [address] [place], [place] [address] .NEUABSon 02-09-2024 Neutrophil, Absolute 4.4 10 3/mcL Normal 2.3-8.1 [facility] Comment on above: Performed By: #### B MP, MDW, GFR, ANEU, TROPHS, PBNP, CBC, ADIFF ####[address] [place], [place] [address] BMPon 02-09-2024 BUN/Creatinine Ratio 26 ratio Normal 7-27 [facility] Comment on above: Performed By: #### B NAFISA MCHUGH, GFR, ANEU, TROPHS, PBNP, CBC, ADIFF ####Jerrell [address] [place], [place] [address] Calcium [Mass/Vol] 10.4 mg/dL High 8.4-10.2 [facility] Comment on above: Performed By: #### B NAFISA MCHUGH, GFR, ANEU, TROPHS, PBNP, CBC, ADIFF ####[address] [place], [place] [address] Chloride [Moles/Vol] 104 mmol/L Normal 98-107 [facility] Comment on above: Performed By: #### B NAFISA MCHUGH, GFR, ANEU, TROPHS, PBNP, CBC, ADIFF ####Jerrell [address] [place], [place] [address] CO2 [Moles/Vol] 30 mmol/L Normal 23-31 [facility] Comment on above: Performed By: #### B NAFISA MCHUGH, GFR, ANEU, TROPHS, PBNP, CBC, ADIFF ####[address] [place], [place] [address] Creatinine [Mass/Vol] 0.96 mg/dL Normal 0.55-1.02 [facility] Comment on above: Result Comment: Test ing performed on Siemens Dimension EXL analyzer using a modified kinetic Dora technique. Performed By: #### B NAFISA MCHUGH, GFR, ANEU, TROPHS, PBNP, CBC, ADIFF ####Jerrell W[address] [place], [place] [address] Electrolyte Balance 10.0 mEq/L Normal 4.0-15.0 [facility] Comment on above: Performed By: #### B NAFISA MCHUGH, GFR, ANEU, TROPHS, PBNP, CBC, ADIFF ####[address] [place], [place] [address] Glucose [Mass/Vol] 108 mg/dL Normal 83-110 [facility] Comment on above: Performed By: #### B NAFISA MCHUGH, GFR, ANEU, TROPHS, PBNP, CBC, ADIFF ####Jerrell [address] [place], [place] [address] Potassium [Moles/Vol] 3.6 mmol/L Normal 3.5-5.1 [facility] Comment on above: Performed By: #### B NAFISA MCHUGH, GFR, ANEU, TROPHS, PBNP, CBC, ADIFF ####Jerrell [address] [place], [place] [address] Sodium [Moles/Vol] 144 mmol/L Normal 136-145 [facility] Comment on above: Performed By: #### B NAFISA MCHUGH, GFR, ANEU, TROPHS, PBNP, CBC, ADIFF ####Jerrell [address] [place], [place] [address] Urea nitrogen [Mass/Vol] 25 mg/dL High 7-18 [facility] Comment on above: Performed By: #### B NAFISA MCHUGH, GFR, ANEU, TROPHS, PBNP, CBC, ADIFF ####Jerrell [address] [place], [place] [address] CBCon 02-09-2024 Erythrocyte distribution width (RBC) [Ratio] 14.0 % Normal 11.5-15.5 [facility] Comment on above: Performed By: #### B NAFISA MCHUGH, GFR, ANEU, TROPHS, PBNP, CBC, ADIFF ####[facility] [place], [place] [address] Hematocrit (Bld) [Volume fraction] 34.7 % Normal 34.0-46.0 [facility] Comment on above: Performed By: #### B NAFISA MCHUGH, GFR, ANEU, TROPHS, PBNP, CBC, ADIFF ####Jerrell [address] [place], [place] [address] Hgb 11.7 G/dL Low 12.0-16.0 [facility] Comment on above: Performed By: #### B NAFISA MCHUGH, GFR, ANEU, TROPHS, PBNP, CBC, ADIFF ####Jerrell [address] [place], [place] [address] MCH (RBC) [Entitic mass] 28.7 pg Normal 27.0-33.0 [facility] Comment on above: Performed By: #### B NAFISA MCHUGH, GFR, ANEU, TROPHS, PBNP, CBC, ADIFF ####Jerrell [address] [place], [place] [address] MCHC 33.7 G/dL Normal 32.0-36.0 [facility] Comment on above: Performed By: #### B NAFISA MCHUGH, GFR, ANEU, TROPHS, PBNP, CBC, ADIFF ####Jerrell [address] [place], [place] [address] MCV (RBC) [Entitic vol] 85.0 fL Normal 80.0-99.0 [facility] Comment on above: Performed By: #### B NAFISA MCHUGH, GFR, ANEU, TROPHS, PBNP, CBC, ADIFF ####Jerrell [address] [place], [place] [address] Platelet 266 10 3/mcL Normal 150-450 [facility] Comment on above: Performed By: #### B NAFISA MCHUGH, GFR, ANEU, TROPHS, PBNP, CBC, ADIFF ####Jerrell [address] [place], [place] [address] Platelet mean volume (Bld) [Entitic vol] 7.4 fL Normal 6.6-10.5 [facility] Comment on above: Performed By: #### B NAFISA MCHUGH, GFR, ANEU, TROPHS, PBNP, CBC, ADIFF ####Jerrell [address] [place], [place] [address] RBC 4.08 10 6/mcL Low 4.10-5.30 [facility] Comment on above: Performed By: #### B NAFISA MCHUGH, GFR, ANEU, TROPHS, PBNP, CBC, ADIFF ####Jerrell [address] [place], [place] [address] WBC 7.6 10 3/mcL Normal 4.5-10.8 [facility] Comment on above: Performed By: #### B MP, MDW, GFR, ANEU, TROPHS, PBNP, CBC, ADIFF ####[place] [address] [place], [place] [address] LABORATORYOrdered By: Addis Pelayo on 02-09-2024 Appearance [...] ng/L Male: 0-76 ng/L Testing performed on Autopilot (formerly Bislr) using a homogeneous sandwich chemiluminescent immunoassay based on Skysheet technology. Urea nitrogen [Mass/Vol] 25 mg/dL High 7 - 18 mg/dL AO ADM SS Urea nitrogen/Creatinine [Mass ratio] 26 ratio Normal 7 - 27 ratio AO ADM SS WBC (Bld) [#/Vol] 7.6 103/mcL Normal 4.5 - 10.8 10^3/mcL AO Workflow SS PBNPon 02-09-2024 Natriuretic peptide B (Bld) [Mass/Vol] 3243 pg/mL High 0-450 [facility] Comment on above: Result Comment: NT-p roBNP results of less than 300 pg/mL effectively rules out acute congestive heart failure with 99% negative predictive value. Performed By: #### B MP, MDW, GFR, ANEU, TROPHS, PBNP, CBC, ADIFF ####[address] [place], [place] [address] [facility] 02-09-2024 High Sensitivity Troponin I 23 ng/L Normal 0-51 [facility] Comment on above: Result Comment: High Sensitive Troponin I Reference Ranges: Female: 0-51 ng/L Male: 0-76 ng/L Testing performed on Autopilot (formerly Bislr) using a homogeneous sandwich chemiluminescent immunoassay based on Skysheet technology. Performed By: #### B MP, MDW, GFR, ANEU, TROPHS, PBNP, CBC, ADIFF ####Jerrell [address] [place] [address] UAon 02-09-2024 Color (U) Yellow Normal [facility] Comment on above: Performed By: #### U A ####Jerrell [address] [place] [address] Glucose (U) [Mass/Vol] Negative Normal Negative [facility] Comment on above: Performed By: #### U A ####[address] [place] [address] Ketones Ql (U) Negative Normal Negative [facility] Comment on above: Performed By: #### U A ####Jerrell [address] [place] [address] UA Appear Clear Normal Clear [facility] Comment on above: Performed By: #### U A ####[place] [address] UA Blood Negative Normal Negative [facility] Comment on above: Performed By: #### U A ####Warren [address] [address] UA Leuk Est Negative Normal Negative [facility] Comment on above: Performed By: #### U A ####Jerrell [address] [place] [address] UA Nitrite Negative Normal Negative [facility] Comment on above: Performed By: #### U A ####Jerrell [address] [place] [address] UA pH 6.5 Normal 5.0 - 8.0 [facility] Comment on above: Performed By: #### U A ####Jerrell [address] [place] [address] UA Protein Negative Normal Negative [facility] Comment on above: Performed By: #### U A ####Jerrell [address] [place] [address] UA Spec Grav 1.015 Normal 1.015-1.025 [facility] Comment on above: Performed By: #### U A ####Warren [address] [place], [place] [address] UA Specimen Type Void Normal [facility] Comment on above: Performed By: #### U A ####[facility] [place], [place] [address] UA Urobilinogen 0.2 E.U./dL Normal 0.2-1.0 [facility] Comment on above: Performed By: #### U A ####Jerrell [address] [place], [place] [address] Urobilinogen (U) [Mass/Vol] Negative Normal Negative [facility] Comment on above: Performed By: #### U A ####[facility] [place], [place] [address] VALPRon 02-09-2024 LDose Valproic Acid: Unknown Normal [facility] Comment on above: Performed By: #### V ALPR ####[facility] [place] [address] Valproic Acid Lvl 30 mcg/mL Low 50-100 [facility] Comment on above: Performed By: #### V ALPR ####[facility] [place], [place] [address] XR CHEST 1 VIEWon 02-09-2024 XR CHEST [...] Ordering Provider: TRIXIE BARONE Normal [facility] .Urinalysis Microscopic (AO) on 01-21-2024 UA Amorphus 1+ /hpf Normal [facility] Comment on above: Performed By: #### U A, UAMICAO ####[facility] [place] [address] UA CA Ox Crystal 1+ /hpf Normal [facility] Comment on above: Performed By: #### U A, UAMICAO ####Jerrell [address] [place] [address] UA Mucous 2+ /hpf Normal [facility] Comment on above: Performed By: #### U A, UAMICAO ####Jerrell [address]ex[address] [place] [address] UA RBC 0-5 Abnormal None Seen [facility] Comment on above: Performed By: #### U A, UAMICAO ####[place] [place] [address] UA Squam Epithelial 0-5 Abnormal None Seen [facility] Comment on above: Performed By: #### U A, UAMICAO ####[place] [address] [place] [address] UA WBC 0-5 Abnormal None Seen [facility] Comment on above: Performed By: #### U A, UAMICAO ####[place] [address] LABORATORYOrdered By: Mao Nava on 01-21-2024 Appearance [...] 01-21-2024 Color (U) Yellow Normal [facility] Comment on above: Performed By: #### U A UAMICAO ####[facility] [place], [place] [address] Glucose (U) [Mass/Vol] Negative Normal Negative [facility] Comment on above: Performed By: #### U A, UAMICAO ####[facility] [place], [place] [address] Ketones Ql (U) Negative Normal Negative [facility] Comment on above: Performed By: #### U A, UAMICAO ####[facility] [place], [place] [address] UA Appear Clear Normal Clear [facility] Comment on above: Performed By: #### U A, UAMICAO ####War[place] [address]se[address] [place], [place] [address] UA Blood Negative Normal Negative [facility] Comment on above: Performed By: #### U A, UAMICAO ####[address] [place] [address] UA Leuk Est Negative Normal Negative [facility] Comment on above: Performed By: #### U A, UAMICAO ####[address] [place] [address] UA Nitrite Negative Normal Negative [facility] Comment on above: Performed By: #### U A, UAMICAO ####Jerrell [address] [place] [address] UA pH 6.0 Normal 5.0 - 8.0 [facility] Comment on above: Performed By: #### U A, UAMICAO ####[address] [place] [address] UA Protein 30 mg/dL Normal Negative [facility] Comment on above: Performed By: #### U A, UAMICAO ####[address] [place] [address] UA Spec Grav 1.020 Normal 1.015-1.025 [facility] Comment on above: Performed By: #### U A, UAMICAO ####[address] [place] [address] UA Specimen Type Hua Catheter Normal [facility] Comment on above: Performed By: #### U A, UAMICAO ####[address] [place] [address] UA Urobilinogen 0.2 E.U./dL Normal 0.2-1.0 [facility] Comment on above: Performed By: #### U A, UAMICAO ####[address] [place] [address] Urobilinogen (U) [Mass/Vol] Negative Normal Negative [facility] Comment on above: Performed By: #### U A, UAMICAO ####[address] [place] [address] US BLADDERon 01-07-2024 US BLADDER ORIGINAL EXAMINATION: [...] AM Ordering Provider: LARRY Geronimo [facility] .GFRon 12-29-2023 GFR 54 ml/min/1.73sqm [facility] Comment on above: Result Comment: GFR [...] mL/min/1.73 square meters Performed By: #### G , JANIA MCKEON ####[facility] [place], [place] [address] GFR Non- 44 ml/min/1.73sqm [facility] Comment on above: Result Comment: GFR [...] Performed By: #### LINDA SOLIS CAION ####Jerrell [address] [place], [place] [address] BMPon 12-29-2023 BUN/Creatinine Ratio 20 ratio Normal 7-27 [facility] Comment on above: Performed By: #### LINDA SOLIS CAION ####Jerrell [address] [place], [place] [address] Calcium [Mass/Vol] 10.3 mg/dL High 8.4-10.2 [facility] Comment on above: Performed By: #### LINDA SOLIS CAION ####Jerrell [address] [place], [place] [address] Chloride [Moles/Vol] 104 mmol/L Normal 98-107 [facility] Comment on above: Performed By: #### LINDA SOLIS CAION ####Jerrell [address] [place], [place] [address] CO2 [Moles/Vol] 31 mmol/L Normal 23-31 [facility] Comment on above: Performed By: #### LINDA SOLIS CAION ####Jerrell [address] [place], [place] [address] Creatinine [Mass/Vol] 1.16 mg/dL High 0.55-1.02 [facility] Comment on above: Result Comment: Test ing performed on Siemens Dimension EXL analyzer using a modified kinetic Dora technique. Performed By: #### LINDA SOLIS CAION ####Jerrell [address] [place], [place] [address] Electrolyte Balance 7.0 mEq/L Normal 4.0-15.0 [facility] Comment on above: Performed By: #### LINDA SOLIS, JANIA ####Jerrell [address] [place], [place] [address] Glucose [Mass/Vol] 92 mg/dL Normal 83-110 [facility] Comment on above: Performed By: #### LINDA SOLIS CAION ####Jerrell [address] [place], [place] [address] Potassium [Moles/Vol] 4.2 mmol/L Normal 3.5-5.1 [facility] Comment on above: Performed By: #### LINDA SOLIS CAION ####[address] [place], [place] [address] Sodium [Moles/Vol] 142 mmol/L Normal 136-145 [facility] Comment on above: Performed By: #### LINDA SOLIS CAION ####[address] [place], [place] [address] Urea nitrogen [Mass/Vol] 23 mg/dL High 7-18 [facility] Comment on above: Performed By: #### LINDA SOLIS CAION ####[address] [place], [place] [address] CAIONon 12-29-2023 Calcium Ionized 1.27 mmol/L Normal 1.12-1.32 [facility] Comment on above: Performed By: #### LINDA SOLIS CAION ####Jerrell [address] [place], [place] [address] LABORATORYOrdered By: SYSTEM SYSTEM on 12-29-2023 Calcium [...] 12/21/2023 4:21:17 PM Ordering Provider: LARRY THOMAS [facility] XR SPINE LUMBAR W/OBLIQUES 4 VIEWSon [...] PM Ordering Provider: LARRY Geronimo [facility] B12on 12-16-2023 Cobalamin (Vitamin B12) [Mass/Vol] 509 pg/mL Normal 211-911 [facility] Comment on above: Performed By: #### F ES, FERR ####[place] [address]#### B12, FOL ####[place] [address] [place] [address] FOLon 12-16-2023 Folate >48.00 High 5.38-24.00 [facility] Comment on above: Performed By: #### F ES, FERR ####[place] [address]#### B12, FOL ####[place] [address] .Auto Diffon 12-15-2023 Basophil, Absolute 0.1 10 3/mcL Normal 0.0-0.2 [facility] Comment on above: Performed By: #### C MP, ADIFF, CBC, GFR, PBNP, ANEU #### [address] [address] Basophils/100 WBC (Bld) 1.1 % Normal 0.0-2.5 [facility] Comment on above: Performed By: #### C MP, ADIFF, CBC, GFR, PBNP, ANEU #### [address] [address] Eosinophil, Absolute 0.1 10 3/mcL Normal 0.0-0.7 [facility] Comment on above: Performed By: #### C MP, ADIFF, CBC, GFR, PBNP, ANEU #### [address] [address] Eosinophils/100 WBC (Bld) 1.4 % Normal 0.0-7.0 [facility] Comment on above: Performed By: #### C MP, ADIFF, CBC, GFR, PBNP, ANEU #### [address] [address] Lymphocyte, Absolute 1.7 10 3/mcL Normal 0.9-4.3 [facility] Comment on above: Performed By: #### C MP, ADIFF, CBC, GFR, PBNP, ANEU #### [address] [address] Lymphocytes/100 WBC (Bld) 20.9 % Normal 20.0-40.0 [facility] Comment on above: Performed By: #### C MP, ADIFF, CBC, GFR, PBNP, ANEU #### [address] [address] Monocyte, Absolute 0.5 10 3/mcL Normal 0.1-1.4 [facility] Comment on above: Performed By: #### C MP, ADIFF, CBC, GFR, PBNP, ANEU #### [address] [address] Monocytes/100 WBC (Bld) 6.0 % Normal 2.0-13.0 [facility] Comment on above: Performed By: #### C MP, ADIFF, CBC, GFR, PBNP, ANEU #### [address] [address] Neutrophils/100 WBC (Bld) 70.6 % Normal 50.0-75.0 [facility] Comment on above: Performed By: #### C MP, ADIFF, CBC, GFR, PBNP, ANEU #### [address] [address] .GFRon 12-15-2023 GFR 62 ml/min/1.73sqm Normal [facility] Comment on above: Result Comment: GFR [...] MP, ADIFF, CBC, GFR, PBNP, ANEU #### [address] [address] GFR Non- 52 ml/min/1.73sqm Normal [facility] Comment on above: Result Comment: GFR [...] MP, ADIFF, CBC, GFR, PBNP, ANEU #### [address] [address] .NEUABSon 12-15-2023 Neutrophil, Absolute 5.8 10 3/mcL Normal 2.3-8.1 [facility] Comment on above: Performed By: #### C MP, ADIFF, CBC, GFR, PBNP, ANEU #### [address] [address] CBCon 12-15-2023 Erythrocyte distribution width (RBC) [Ratio] 14.2 % Normal 11.5-15.5 [facility] Comment on above: Performed By: #### C MP, ADIFF, CBC, GFR, PBNP, ANEU #### [address] [address] Hematocrit (Bld) [Volume fraction] 34.6 % Normal 34.0-46.0 [facility] Comment on above: Performed By: #### C MP, ADIFF, CBC, GFR, PBNP, ANEU #### [address] [address] Hgb 11.7 G/dL Low 12.0-16.0 [facility] Comment on above: Performed By: #### C MP, ADIFF, CBC, GFR, PBNP, ANEU #### [place] [address] MCH (RBC) [Entitic mass] 28.7 pg Normal 27.0-33.0 [facility] Comment on above: Performed By: #### C MP, ADIFF, CBC, GFR, PBNP, ANEU #### [address] [address] MCHC 33.9 G/dL Normal 32.0-36.0 [facility] Comment on above: Performed By: #### C MP, ADIFF, CBC, GFR, PBNP, ANEU #### [place] [address] MCV (RBC) [Entitic vol] 84.8 fL Normal 80.0-99.0 [facility] Comment on above: Performed By: #### C MP, ADIFF, CBC, GFR, PBNP, ANEU #### [address] [address] Platelet 363 10 3/mcL Normal 150-450 [facility] Comment on above: Performed By: #### C MP, ADIFF, CBC, GFR, PBNP, ANEU #### [address] [address] Platelet mean volume (Bld) [Entitic vol] 7.4 fL Normal 6.6-10.5 [facility] Comment on above: Performed By: #### C MP, ADIFF, CBC, GFR, PBNP, ANEU #### [address] [address] RBC 4.08 10 6/mcL Low 4.10-5.30 [facility] Comment on above: Performed By: #### C MP, ADIFF, CBC, GFR, PBNP, ANEU #### [address] [address] WBC 8.3 10 3/mcL Normal 4.5-10.8 [facility] Comment on above: Performed By: #### C MP, ADIFF, CBC, GFR, PBNP, ANEU #### [address] [address] CMPon 12-15-2023 Albumin Level 3.9 G/dL Normal 3.4-4.8 [facility] Comment on above: Performed By: #### C MP, ADIFF, CBC, GFR, PBNP, ANEU #### [place] [id number] Albumin/Globulin [Mass ratio] 1.4 {ratio} Normal 1.1-2.5 [facility] Comment on above: Performed By: #### C MP, ADIFF, CBC, GFR, PBNP, ANEU #### [place] [id number] ALP [Catalytic activity/Vol] 72 U/L Normal 40-135 [facility] Comment on above: Performed By: #### C MP, ADIFF, CBC, GFR, PBNP, ANEU #### [address] [address] ALT [Catalytic activity/Vol] 26 U/L Normal 14-59 [facility] Comment on above: Performed By: #### C MP, ADIFF, CBC, GFR, PBNP, ANEU #### [address] [address] AST [Catalytic activity/Vol] 18 U/L Normal 10-40 [facility] Comment on above: Performed By: #### C MP, ADIFF, CBC, GFR, PBNP, ANEU #### [place] [id number] Bili Total 0.4 mg/dL Normal 0.2-1.0 [facility] Comment on above: Result Comment: Use of this assay is not recommended for patients undergoing treatment with eltrombopag due to the potential for falsely elevated results. Performed By: #### C MP, ADIFF, CBC, GFR, PBNP, ANEU #### [place] [address] BUN/Creatinine Ratio 20 ratio Normal 7-27 [facility] Comment on above: Performed By: #### C MP, ADIFF, CBC, GFR, PBNP, ANEU #### [place] [address] Calcium [Mass/Vol] 10.8 mg/dL High 8.4-10.2 [facility] Comment on above: Performed By: #### C MP, ADIFF, CBC, GFR, PBNP, ANEU #### [place] [address] Chloride [Moles/Vol] 104 mmol/L Normal 98-107 [facility] Comment on above: Performed By: #### C MP, ADIFF, CBC, GFR, PBNP, ANEU #### [place] [address] CO2 [Moles/Vol] 30 mmol/L Normal 23-31 [facility] Comment on above: Performed By: #### C MP, ADIFF, CBC, GFR, PBNP, ANEU #### [place] [address] Creatinine [Mass/Vol] 1.02 mg/dL Normal 0.55-1.02 [facility] Comment on above: Result Comment: Test ing performed on Siemens Dimension EXL analyzer using a modified kinetic Dora technique. Performed By: #### C MP, ADIFF, CBC, GFR, PBNP, ANEU #### [place] [address] Electrolyte Balance 7.0 mEq/L Normal 4.0-15.0 [facility] Comment on above: Performed By: #### C MP, ADIFF, CBC, GFR, PBNP, ANEU #### [place] [address] Globulin 2.8 G/dL Normal [facility] Comment on above: Performed By: #### C MP, ADIFF, CBC, GFR, PBNP, ANEU #### [address] [address] Glucose [Mass/Vol] 105 mg/dL Normal 83-110 [facility] Comment on above: Performed By: #### C MP, ADIFF, CBC, GFR, PBNP, ANEU #### [address] [address] Potassium [Moles/Vol] 4.2 mmol/L Normal 3.5-5.1 [facility] Comment on above: Performed By: #### C MP, ADIFF, CBC, GFR, PBNP, ANEU #### [address] [address] Sodium [Moles/Vol] 141 mmol/L Normal 136-145 [facility] Comment on above: Performed By: #### C MP, ADIFF, CBC, GFR, PBNP, ANEU #### [address] [address] Total Protein 6.7 G/dL Normal 6.4-8.2 [facility] Comment on above: Performed By: #### C MP, ADIFF, CBC, GFR, PBNP, ANEU #### [address] [address] Urea nitrogen [Mass/Vol] 20 mg/dL High 7-18 [facility] Comment on above: Performed By: #### C MP, ADIFF, CBC, GFR, PBNP, ANEU #### [address] [address] Lucretia 12-15-2023 Ferritin [Mass/Vol] 197.0 ng/mL Normal 8.0-252.0 [facility] Comment on above: Performed By: #### F ES, FERR ####[address] [address]#### B12, FOL ####[address] [address] FESon 12-15-2023 Iron [Mass/Vol] 44 ug/dL Low 50-170 [facility] Comment on above: Performed By: #### F ES, FERR ####[place] [address] [place], [place] [address]#### B12, FOL ####[place] [address] Iron Sat 15 % Normal [facility] Comment on above: Performed By: #### F ES, FERR ####[place] [address] [address]#### B12, FOL ####[place] [address] TIBC 300 mcg/dL Normal 250-450 [facility] Comment on above: Performed By: #### F ES, FERR ####[place] [address]#### B12, FOL ####[place] [address] LABORATORYOrdered By: SYSTEM SYSTEM on 12-15-2023 Albumin [...] Culture Urine No growth at 48 hours. [facility] PBNPon 12-15-2023 Natriuretic peptide B (Bld) [Mass/Vol] 1968 pg/mL High 0-450 [facility] Comment on above: Result Comment: NT-p roBNP results of less than 300 pg/mL effectively rules out acute congestive heart failure with 99% negative predictive value. Performed By: #### C MP, ADIFF, CBC, GFR, PBNP, ANEU ####[address] [address] LABORATORYOrdered By: Domingo Masterson on 12-09-2023 Appearance [...] 12-09-2023 Color (U) Yellow Normal [facility] Comment on above: Performed By: #### U A ####[address] [address] Glucose (U) [Mass/Vol] Negative Normal Negative [facility] Comment on above: Performed By: #### U A ####[place] [address]347 Ketones Ql (U) Negative Normal Negative [facility] Comment on above: Performed By: #### U A ####[place] [address] [place] [address] UA Appear Clear Normal Clear [facility] Comment on above: Performed By: #### U A ####[place] [address] [place], [place] [address] UA Blood Negative Normal Negative [facility] Comment on above: Performed By: #### U A ####[place] [address] UA Leuk Est Negative Normal Negative [facility] Comment on above: Performed By: #### U A ####[place] [id number] [place] [address] UA Nitrite Negative Normal Negative [facility] Comment on above: Performed By: #### U A ####[address] [place] [address] UA pH 7.5 Normal 5.0 - 8.0 [facility] Comment on above: Performed By: #### U A ####[place] [id number] [place] [address] UA Protein Negative Normal Negative [facility] Comment on above: Performed By: #### U A ####[place] [address] [place] [address] UA Spec Grav 1.020 Normal 1.015-1.025 [facility] Comment on above: Performed By: #### U A ####[id number] [place] [address] UA Specimen Type Clean Catch Normal [facility] Comment on above: Performed By: #### U A ####[place] [id number] [place] [address] UA Urobilinogen 0.2 E.U./dL Normal 0.2-1.0 [facility] Comment on above: Performed By: #### U A ####[place] [address] [place] [address] Urobilinogen (U) [Mass/Vol] Negative Normal Negative [facility] Comment on above: Performed By: #### U A ####[id number] [place] [address] XR HIP RIGHT W/PELVIS 4 VIEW Son [...] 11/29/2023 11:51:51 AM Ordering Provider: SONNY STAHL [facility] .GFRon 07-08-2023 GFR 63 ml/min/1.73sqm [facility] ([place]) Comment on above: Result Comment: GFR Population [...] FR, A1C, ANEU, CBC, ADIFF, BMP #### [address] [address] GFR Non- 52 ml/min/1.73sqm [facility] ([place]) Comment on above: Result Comment: GFR Population [...] FR, A1C, ANEU, CBC, ADIFF, BMP #### [address] [address] BMPon 07-08-2023 BUN/Creatinine Ratio 19 ratio Normal 7-27 [facility] ([place]) Comment on above: Performed By: #### G FR, A1C, ANEU, CBC, ADIFF, BMP #### [address] [address] Calcium [Mass/Vol] 9.6 mg/dL Normal 8.4-10.2 [facility] ([place]) Comment on above: Performed By: #### G FR, A1C, ANEU, CBC, ADIFF, BMP #### [address] [address] Chloride [Moles/Vol] 106 mmol/L Normal 98-107 [facility] ([place] Comment on above: Performed By: #### G FR, A1C, ANEU, CBC, ADIFF, BMP #### [address] [address] CO2 [Moles/Vol] 29 mmol/L Normal 23-31 [facility] ([place]) Comment on above: Performed By: #### G FR, A1C, ANEU, CBC, ADIFF, BMP #### [address] [address] Creatinine [Mass/Vol] 1.02 mg/dL Normal 0.55-1.02 [facility] ([place]) Comment on above: Performed By: #### G FR, A1C, ANEU, CBC, ADIFF, BMP #### [address] [address] Electrolyte Balance 9.0 mEq/L Normal 4.0-15.0 [facility] ([place]) Comment on above: Performed By: #### G FR, A1C, ANEU, CBC, ADIFF, BMP #### [address] [address] Glucose [Mass/Vol] 118 mg/dL High 83-110 [facility] ([place] Comment on above: Performed By: #### G FR, A1C, ANEU, CBC, ADIFF, BMP #### [address] [address] Potassium [Moles/Vol] 3.7 mmol/L Normal 3.5-5.1 [facility] ([place]) Comment on above: Performed By: #### G FR, A1C, ANEU, CBC, ADIFF, BMP #### [place] [address] [place], [place] [address] Sodium [Moles/Vol] 144 mmol/L Normal 136-145 [facility] ([place] Comment on above: Performed By: #### G FR, A1C, ANEU, CBC, ADIFF, BMP #### [place] [address] [place], [place] [address] Urea nitrogen [Mass/Vol] 19 mg/dL High 7-18 [facility] ([place]) Comment on above: Performed By: #### G FR, A1C, ANEU, CBC, ADIFF, BMP #### [place] [address] [place], [place] [address] LABORATORYOrdered By: SYSTEM SYSTEM on 07-08-2023 Calcium [...] 04/14/2023 10:35:22 AM Ordering Provider: MAHAD Geronimo [facility] ([place]) METon 04-14-2023 Methylmalonic Acid 340 nmol/L Normal 0-378 [facility] ([place]) Comment on above: Result Comment: This test was developed and its performance characteristics determined by [facility]. It has not been cleared or approved by the Food and Drug Administration. Performed At: [address] [id number] Hima Lieberman MD Ph:[phone] Performed By: #### G FR, A1C, ANEU, CBC, ADIFF, BMP #### [place] [address] [address] B12on 04-07-2023 Cobalamin (Vitamin B12) [Mass/Vol] 600 pg/mL Normal 211-911 [facility]) Comment on above: Performed By: #### F OL, B12 #### [address] [address] #### FT4, [id number], TSH #### [address] [address] FOLon 04-07-2023 Folate >48.00 High 5.38-24.00 [facility] ([place]) Comment on above: Performed By: #### F OL, B12 #### [address] [address] #### FT4, [id number], TSH #### [address] [address] FT4on 04-07-2023 Free T4 [Mass/Vol] 0.99 ng/dL Normal 0.76-1.46 [facility] ([place] Comment on above: Performed By: #### F OL, B12 #### [place] [address] #### FT4, [id number], TSH #### [address] [address] LABORATORYOrdered By: SYSTEM SYSTEM on 04-07-2023 Cobalamin [...] Qn 1.65 m[IU]/L Normal 0.36-3.74 [facility] ([place]) Comment on above: Performed By: #### F OL, B12 #### [place] [address] #### FT4, 938575, TSH #### [address] [address] .Auto Diffon 03-10-2023 Basophil, Absolute 0.1 10 3/mcL Normal 0.0-0.2 [facility] ([place] Comment on above: Performed By: #### G FR, A1C, ANEU, CBC, ADIFF, BMP #### [address] [address] Basophils/100 WBC (Bld) 1.2 % Normal 0.0-2.5 [facility] ([place]) Comment on above: Performed By: #### G FR, A1C, ANEU, CBC, ADIFF, BMP #### [address] [address] Eosinophil, Absolute 0.1 10 3/mcL Normal 0.0-0.4 [facility] ([place]) Comment on above: Performed By: #### G FR, A1C, ANEU, CBC, ADIFF, BMP #### [address] [address] Eosinophils/100 WBC (Bld) 1.6 % Normal 0.0-7.0 [facility] ([place]) Comment on above: Performed By: #### G FR, A1C, ANEU, CBC, ADIFF, BMP #### [address] [address] Lymphocyte, Absolute 1.9 10 3/mcL Normal 0.8-3.9 [facility] ([place] Comment on above: Performed By: #### G FR, A1C, ANEU, CBC, ADIFF, BMP #### [address] [address] Lymphocytes/100 WBC (Bld) 23.7 % Normal 10.0-50.0 [facility] ([place]) Comment on above: Performed By: #### G FR, A1C, ANEU, CBC, ADIFF, BMP #### [address] [address] Monocyte, Absolute 0.6 10 3/mcL Normal 0.2-1.0 [facility] ([place]) Comment on above: Performed By: #### G FR, A1C, ANEU, CBC, ADIFF, BMP #### [address] [address] Monocytes/100 WBC (Bld) 7.8 % Normal 1.7-13.0 [facility] ([place]) Comment on above: Performed By: #### G FR, A1C, ANEU, CBC, ADIFF, BMP #### [address] [address] Neutrophils/100 WBC (Bld) 65.7 % Normal 37.0-80.0 [facility] ([place]) Comment on above: Performed By: #### G FR, A1C, ANEU, CBC, ADIFF, BMP #### [address] [address] .GFRon 03-10-2023 GFR 63 ml/min/1.73sqm Normal [facility] ([place]) Comment on above: Result Comment: GFR Population [...] FR, A1C, ANEU, CBC, ADIFF, BMP #### [address] [address] GFR Non- 52 ml/min/1.73sqm Normal [facility] ([place]) Comment on above: Result Comment: GFR Population [...] FR, A1C, ANEU, CBC, ADIFF, BMP #### [address] [address] .NEUABSon 03-10-2023 Neutrophil, Absolute 5.2 10 3/mcL Normal 2.9-6.2 [facility] ([place] Comment on above: Performed By: #### G FR, A1C, ANEU, CBC, ADIFF, BMP #### [address] [address] A1Con 03-10-2023 HbA1c (Bld) [Mass fraction] 5.6 % Normal 4.3-6.4 [facility] ([place]) Comment on above: Performed By: #### G FR, A1C, ANEU, CBC, ADIFF, BMP #### [place] [id number] CBCon 03-10-2023 Erythrocyte distribution width (RBC) [Ratio] 14.7 % High 11.5-14.5 [facility] ([place]) Comment on above: Performed By: #### G FR, A1C, ANEU, CBC, ADIFF, BMP #### [place] [id number] Hematocrit (Bld) [Volume fraction] 35.6 % Low 37.0-47.0 [facility] ([place]) Comment on above: Performed By: #### G FR, A1C, ANEU, CBC, ADIFF, BMP #### [address] [address] Hgb 12.1 G/dL Normal 12.0-16.0 [facility] ([place] Comment on above: Performed By: #### G FR, A1C, ANEU, CBC, ADIFF, BMP #### [address] [address] MCH (RBC) [Entitic mass] 27.8 pg Normal 27.0-31.2 [facility] ([place]) Comment on above: Performed By: #### G FR, A1C, ANEU, CBC, ADIFF, BMP #### [address] [address] MCHC 34.1 G/dL Normal 33.0-37.0 [facility] ([place]) Comment on above: Performed By: #### G FR, A1C, ANEU, CBC, ADIFF, BMP #### [address] [address] MCV (RBC) [Entitic vol] 81.7 fL Normal 80.0-94.0 [facility] ([place]) Comment on above: Performed By: #### G FR, A1C, ANEU, CBC, ADIFF, BMP #### [address] [address] Platelet 300 10 3/mcL Normal 130-400 [facility] ([place]) Comment on above: Performed By: #### G FR, A1C, ANEU, CBC, ADIFF, BMP #### [address] [address] Platelet mean volume (Bld) [Entitic vol] 8.0 fL Normal 7.4-10.4 [facility] ([place]) Comment on above: Performed By: #### G FR, A1C, ANEU, CBC, ADIFF, BMP #### [address] [address] RBC 4.35 10 6/mcL Normal 4.20-5.40 [facility] ([place]) Comment on above: Performed By: #### G FR, A1C, ANEU, CBC, ADIFF, BMP #### [address] [address] WBC 8.0 10 3/mcL Normal 4.6-10.8 [facility] ([place]) Comment on above: Performed By: #### G FR, A1C, ANEU, CBC, ADIFF, BMP #### [address] [address] CMPon 03-10-2023 Chloride [Moles/Vol] 102 mmol/L Normal 98-107 [facility] ([place] Comment on above: Performed By: #### G FR, A1C, ANEU, CBC, ADIFF, BMP #### [address] [address] Electrolyte Balance 10.0 mEq/L Normal 4.0-15.0 [facility] ([place]) Comment on above: Performed By: #### G FR, A1C, ANEU, CBC, ADIFF, BMP #### [address] [address] Potassium [Moles/Vol] 4.3 mmol/L Normal 3.5-5.1 [facility] ([place]) Comment on above: Performed By: #### G FR, A1C, ANEU, CBC, ADIFF, BMP #### [address] [address] Sodium [Moles/Vol] 141 mmol/L Normal 136-145 [facility] ([place]) Comment on above: Performed By: #### G FR, A1C, ANEU, CBC, ADIFF, BMP #### [address] [address] Albumin Level 3.7 G/dL Normal 3.4-4.8 [facility] ([place]) Comment on above: Performed By: #### G FR, A1C, ANEU, CBC, ADIFF, BMP #### [address] [address] Albumin/Globulin [Mass ratio] 1.1 {ratio} Normal 1.1-2.5 [facility] ([place]) Comment on above: Performed By: #### G FR, A1C, ANEU, CBC, ADIFF, BMP #### [address] [address] ALP [Catalytic activity/Vol] 79 U/L Normal 40-135 [facility] ([place]) Comment on above: Performed By: #### G FR, A1C, ANEU, CBC, ADIFF, BMP #### [address] [address] ALT [Catalytic activity/Vol] 24 U/L Normal 14-59 [facility] ([place]) Comment on above: Performed By: #### G FR, A1C, ANEU, CBC, ADIFF, BMP #### [address] [address] AST [Catalytic activity/Vol] 12 U/L Normal 10-40 [facility] ([place]) Comment on above: Performed By: #### G FR, A1C, ANEU, CBC, ADIFF, BMP #### [address] [address] Bili Total 0.3 mg/dL Normal 0.2-1.0 [facility] ([place]) Comment on above: Result Comment: Use of this assay is not recommended for patients undergoing treatment with eltrombopag due to the potential for falsely elevated results. Performed By: #### G FR, A1C, ANEU, CBC, ADIFF, BMP #### [address] [address] BUN/Creatinine Ratio 25 ratio Normal 7-27 [facility] ([place]) Comment on above: Performed By: #### G FR, A1C, ANEU, CBC, ADIFF, BMP #### [address] [address] Calcium [Mass/Vol] 10.1 mg/dL Normal 8.4-10.2 [facility] ([place]) Comment on above: Performed By: #### G FR, A1C, ANEU, CBC, ADIFF, BMP #### [address] [address] CO2 [Moles/Vol] 29 mmol/L Normal 23-31 [facility] ([place]) Comment on above: Performed By: #### G FR, A1C, ANEU, CBC, ADIFF, BMP #### [address] [address] Creatinine [Mass/Vol] 1.02 mg/dL Normal 0.55-1.02 [facility] ([place]) Comment on above: Performed By: #### G FR, A1C, ANEU, CBC, ADIFF, BMP #### [address] [address] Globulin 3.3 G/dL Normal [facility] ([place]) Comment on above: Performed By: #### G FR, A1C, ANEU, CBC, ADIFF, BMP #### [address] [address] Glucose [Mass/Vol] 118 mg/dL High 83-110 [facility] ([place]) Comment on above: Performed By: #### G FR, A1C, ANEU, CBC, ADIFF, BMP #### [address] [address] Total Protein 7.0 G/dL Normal 6.4-8.2 [facility] ([place]) Comment on above: Performed By: #### G FR, A1C, ANEU, CBC, ADIFF, BMP #### [address] [address] Urea nitrogen [Mass/Vol] 26 mg/dL High 7-18 [facility] ([place]) Comment on above: Performed By: #### G FR, A1C, ANEU, CBC, ADIFF, BMP #### [address] [address] LIPIDon 03-10-2023 Cholesterol [Mass/Vol] 214 mg/dL High 0-200 [facility] ([place]) Comment on above: Result Comment: Chol esterol Reference Interval: Less than 200 Desirable 200-239 Borderline high risk 240 and above High risk Performed By: #### G FR, A1C, ANEU, CBC, ADIFF, BMP #### [address] [address] Cholesterol in HDL [Mass/Vol] 62 mg/dL High 40-60 [facility] ([place]) Comment on above: Performed By: #### G FR, A1C, ANEU, CBC, ADIFF, BMP #### [address] [address] Cholesterol in LDL [Mass/Vol] 111 mg/dL Normal 0-130 [facility] ([place]) Comment on above: Performed By: #### G FR, A1C, ANEU, CBC, ADIFF, BMP #### [address] [address] Triglyceride [Mass/Vol] 205 mg/dL High 0-150 [facility] ([place]) Comment on above: Result Comment: Trig lyceride Reference Interval: Less than 150 Normal 150-199 Borderline high risk 200-499 High risk 500 or higher Very high risk Performed By: #### G FR, A1C, ANEU, CBC, ADIFF, BMP #### [address] [address] PHOSon 03-10-2023 Phosphate [Mass/Vol] 3.2 mg/dL Normal 2.3-4.1 [facility] ([place]) Comment on above: Performed By: #### G FR, A1C, ANEU, CBC, ADIFF, BMP #### [address] [address] PTHon 03-10-2023 PTH, Intact 78.2 pg/mL Normal 18.5-88.0 [facility] ([place]) Comment on above: Performed By: #### G FR, A1C, ANEU, CBC, ADIFF, BMP #### [address] [address] VIDHon 03-10-2023 Vit. D 25-Hydroxy 32.1 ng/mL Normal [facility] ([place]) Comment on above: Result Comment: Inte rpretive Values Based on Total 25(OH) Vitamin D: Deficient <20 ng/mL Insufficient 20 - <30 ng/mL Sufficient 30-100 ng/mL Performed By: #### G FR, A1C, ANEU, CBC, ADIFF, BMP #### [address] [address] BD BONE DENSITY DEXA AXIAL S [facility] 12-14-2022 BD BONE DENSITY DEXA AXIAL SKELETON [...] AM Ordering Provider: LARRY Geronimo [facility] ([place]) .Auto Diffon 09-16-2022 Basophil, Absolute 0.1 10 3/mcL Normal 0.0-0.2 [facility] ([place]) Comment on above: Performed By: #### G FR, A1C, ANEU, CBC, ADIFF, BMP #### [address] [address] Basophils/100 WBC (Bld) 0.8 % Normal 0.0-2.5 [facility] ([place]) Comment on above: Performed By: #### G FR, A1C, ANEU, CBC, ADIFF, BMP #### [address] [address] Eosinophil, Absolute 0.2 10 3/mcL Normal 0.0-0.4 [facility] ([place]) Comment on above: Performed By: #### G FR, A1C, ANEU, CBC, ADIFF, BMP #### [address] [address] Eosinophils/100 WBC (Bld) 2.1 % Normal 0.0-7.0 [facility] ([place]) Comment on above: Performed By: #### G FR, A1C, ANEU, CBC, ADIFF, BMP #### [address] [address] Lymphocyte, Absolute 2.0 10 3/mcL Normal 0.8-3.9 [facility] ([place]) Comment on above: Performed By: #### G FR, A1C, ANEU, CBC, ADIFF, BMP #### [address] [address] Lymphocytes/100 WBC (Bld) 22.9 % Normal 10.0-50.0 [facility] ([place]) Comment on above: Performed By: #### G FR, A1C, ANEU, CBC, ADIFF, BMP #### [address] [address] Monocyte, Absolute 0.5 10 3/mcL Normal 0.2-1.0 [facility] ([place]) Comment on above: Performed By: #### G FR, A1C, ANEU, CBC, ADIFF, BMP #### [address] [address] Monocytes/100 WBC (Bld) 6.4 % Normal 1.7-13.0 [facility] ([place]) Comment on above: Performed By: #### G FR, A1C, ANEU, CBC, ADIFF, BMP #### [address] [address] Neutrophils/100 WBC (Bld) 67.8 % Normal 37.0-80.0 [facility] ([place]) Comment on above: Performed By: #### G FR, A1C, ANEU, CBC, ADIFF, BMP #### [address] [address] .GFRon 09-16-2022 GFR Non- 48 ml/min/1.73sqm Normal [facility] ([place]) Comment on above: Result Comment: GFR Population [...] FR, A1C, ANEU, CBC, ADIFF, BMP #### [address] [address] GFR 59 ml/min/1.73sqm Normal [facility] ([place]) Comment on above: Result Comment: GFR Population [...] FR, A1C, ANEU, CBC, ADIFF, BMP #### [address] [address] .NEUABSon 09-16-2022 Neutrophil, Absolute 5.8 10 3/mcL Normal 2.9-6.2 [facility] ([place] Comment on above: Performed By: #### G FR, A1C, ANEU, CBC, ADIFF, BMP #### [address] [address] A1Con 09-16-2022 HbA1c (Bld) [Mass fraction] 5.7 % Normal 4.3-6.4 [facility] ([place]) Comment on above: Performed By: #### G FR, A1C, ANEU, CBC, ADIFF, BMP #### [address] [address] BMPon 09-16-2022 BUN/Creatinine Ratio 27 ratio Normal 7-27 [facility] ([place] Comment on above: Performed By: #### G FR, A1C, ANEU, CBC, ADIFF, BMP #### [address] [address] Calcium [Mass/Vol] 9.8 mg/dL Normal 8.4-10.2 [facility] ([place]) Comment on above: Performed By: #### G FR, A1C, ANEU, CBC, ADIFF, BMP #### [address] [address] Chloride [Moles/Vol] 106 mmol/L Normal 98-107 [facility] ([place] Comment on above: Performed By: #### G FR, A1C, ANEU, CBC, ADIFF, BMP #### [address] [address] CO2 [Moles/Vol] 29 mmol/L Normal 23-31 [facility] ([place]) Comment on above: Performed By: #### G FR, A1C, ANEU, CBC, ADIFF, BMP #### [address] [address] Creatinine [Mass/Vol] 1.08 mg/dL High 0.55-1.02 [facility] ([place]) Comment on above: Performed By: #### G FR, A1C, ANEU, CBC, ADIFF, BMP #### [address] [address] Electrolyte Balance 8.0 mEq/L Normal 4.0-15.0 [facility] ([place]) Comment on above: Performed By: #### G FR, A1C, ANEU, CBC, ADIFF, BMP #### [address] [address] Glucose [Mass/Vol] 125 mg/dL High 83-110 [facility] ([place] Comment on above: Performed By: #### G FR, A1C, ANEU, CBC, ADIFF, BMP #### [address] [address] Potassium [Moles/Vol] 4.5 mmol/L Normal 3.5-5.1 [facility] ([place]) Comment on above: Performed By: #### G FR, A1C, ANEU, CBC, ADIFF, BMP #### [address] [address] Sodium [Moles/Vol] 143 mmol/L Normal 136-145 [facility] ([place]) Comment on above: Performed By: #### G FR, A1C, ANEU, CBC, ADIFF, BMP #### [address] [address] Urea nitrogen [Mass/Vol] 29 mg/dL High 7-18 [facility] ([place]) Comment on above: Performed By: #### G FR, A1C, ANEU, CBC, ADIFF, BMP #### [address] [address] CBCon 09-16-2022 Erythrocyte distribution width (RBC) [Ratio] 14.6 % High 11.5-14.5 [facility] ([place]) Comment on above: Performed By: #### G FR, A1C, ANEU, CBC, ADIFF, BMP #### [address] [address] Hematocrit (Bld) [Volume fraction] 33.9 % Low 37.0-47.0 [facility] ([place]) Comment on above: Performed By: #### G FR, A1C, ANEU, CBC, ADIFF, BMP #### [address] [address] Hgb 11.2 G/dL Low 12.0-16.0 [facility] ([place]) Comment on above: Performed By: #### G FR, A1C, ANEU, CBC, ADIFF, BMP #### [address] [address] MCH (RBC) [Entitic mass] 27.0 pg Normal 27.0-31.2 [facility] ([place]) Comment on above: Performed By: #### G FR, A1C, ANEU, CBC, ADIFF, BMP #### [address] [address] MCHC 33.1 G/dL Normal 33.0-37.0 [facility] ([place]) Comment on above: Performed By: #### G FR, A1C, ANEU, CBC, ADIFF, BMP #### [address] [address] MCV (RBC) [Entitic vol] 81.6 fL Normal 80.0-94.0 [facility] ([place]) Comment on above: Performed By: #### G FR, A1C, ANEU, CBC, ADIFF, BMP #### [address] [address] Platelet 275 10 3/mcL Normal 130-400 [facility] ([place]) Comment on above: Performed By: #### G FR, A1C, ANEU, CBC, ADIFF, BMP #### [address] [address] Platelet mean volume (Bld) [Entitic vol] 8.2 fL Normal 7.4-10.4 [facility] ([place]) Comment on above: Performed By: #### G FR, A1C, ANEU, CBC, ADIFF, BMP #### [address] [address] RBC 4.15 10 6/mcL Low 4.20-5.40 [facility] ([place]) Comment on above: Performed By: #### G FR, A1C, ANEU, CBC, ADIFF, BMP #### [address] [address] WBC 8.5 10 3/mcL Normal 4.6-10.8 [facility] ([place]) Comment on above: Performed By: #### G FR, A1C, ANEU, CBC, ADIFF, BMP #### [address] [address] LABORATORYOrdered By: SYSTEM SYSTEM on 06-19-2022 Basophils [...] AH Workflow SS CNPNon 06-03-2022 CNPN Telephone ([employer]) SHACT ([id number]) 1940 F Date Time Provider Department 06/03/22 PAULA ALANIZ During your visit today, we recorded the following information about you: Brenton Jennings RN 06/03/2022 11:29 AM Signed Received a request from [facility] for all of Ct's left breast cancer treatment medical records. Faxed the request to medical records on [facility], fax confirmation sheet received. Brenton Jennings [...] Encounter Status:Closed by BRENTON JENNINGS on 06/03/22 [facility] LABORATORYOrdered By: SYSTEM SYSTEM on 04-14-2022 Albumin [...] CNOV Office Visit (TONYA ) CT DALTON ([id number]) 1940 F Date Time Provider Department 04/06/22 [...] needle core breast biopsies on 03/23/2022 at [facility]. Findings of fat necrosis, inflammation and [...] daily. (more content not included)... Normal [facility] LABORATORYOrdered By: SYSTEM SYSTEM on 03-09-2022 [...] [Mass ratio] 23 ratio Invalid Interpretation Code 27 ratio AO ADM SS LABORATORYOrdered By: [...] 10.4 mg/dL AH ADM SS Chloride [Moles/Vol] 104 mmol/L Invalid Interpretation Code 98 - 110 mEq/L AH ADM SS CO2 [Moles/Vol] 26 mmol/L Invalid Interpretation Code 22 - 32 mEq/L ADM SS Creatinine [Mass/Vol] 0.83 mg/dL Invalid Interpretation Code 0.50 - 1.20 mg/dL AH ADM SS Electrolyte Balance 8.0 mEq/L Invalid Interpretation Code 4.0 - 15.0 mEq/L ADM SS Eosinophils (Bld) [#/Vol] 0.1 103/mcL Invalid Interpretation Code 0.0 - 0.7 10^3/mcL AH Workflow SS Eosinophils/100 WBC (Bld) 0.7 % [...] 136 - 145 mEq/L AH ADM SS Troponin I.cardiac DL <= 0.01 [...] 12-04 Culture Urine No growth to date [facility] Microscopic examination of blood, culture Culture has been received in lab and is no growth to date. Routine cultures are held for 5 days. [facility] LABORATORYOrdered By: Rick Webber on 12-03-2021 [...] 1.006-1.029 AM [facility] Subsection Urobilinogen Qn (U) [id number] {Sara'U}/dL Invalid Interpretation Code 0.2-1.0E.U. /dL AM [...] Telcor Subsection Comment on above: Result Comment: [facility] [address] [place], [place] [address] Perf Loc - POCT Tested at AM Invalid Interpretation Code AM [facility] Subsection Comment on above: Result Comment: [facility] [address] [place], [place] [address] Perf Loc - POCT Tested at AM Invalid Interpretation Code AM [facility] Subsection Comment on above: Result Comment: [facility] [address] [place], [place] [address] MRI BREAST WO/W IVCON BILon 03-01-2018 MRI BREAST WO/W IVCON DUNCAN * * *Final Report* * * DATE OF EXAM: Mar 01 2018 11:54AM [facility] 0773 - MRI BREAST WO/W IVCON DUNCAN / PROCEDURE REASON: N64.4-Mastodynia * * * * Physician Interpretation * * * * #[id number] - MRI BREAST WO/W IVCON DUNCAN BREAST MRI OF BOTH BREASTS: 03/01/2018 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 Short interval follow up of the lumpectomy site recommended per the prior MRI dated 05/18/2017. RESULT: Comparison is made to exam dated: 05/18/2017 breast MRI - [facility]. Interpretation of this MRI was correlated [...] Follow-up with ACR/NCCN guidelines. Td carlson/rafael:03/01/2018 14:15:08 Wrapper Caser(s): RT Amanda(N)(MR), [facility] MRI BI-RADS: 2 Benign finding Multiple [...] Health, Family Medicine, and Medical/Surgical Oncology, the [facility] has carefully reviewed the data and reached [...] their providers when to stop screening mammograms. Spreader Operator Automatic: Rafael Transcribe Date/Time: Mar 01 2018 11:37A Dictated by : TD SANDERS MD This examination was interpreted and the report reviewed and electronically signed by: TD SANDERS MD on Mar 01 2018 2:15PM EST [id number] Normal [facility] NURSING PROGon 03-01-2018 Protein mass conc HNO ID: [id number] Author: Carla Muse) Kristopher Service: Radiology Author Type: Registered Nurse [...] Summers RN March 01, 2018 10:49 AM [facility] Clinical Summary: HMSPatient IDon 01-17-2018 OOP Invalid Interpretation Code [facility] Work Phone: Office Visit: Follow-up by sasha servin, Rm: PT2on 01-17-2018 NEGATED: Highlighted rowMRI (magnetic resonance imaging) history of the lumbar spine on 10/20/2013 at [facility] Invalid Interpretation Code [facility] Work Phone: NEGATED: Highlighted rowProtein mass conc Done Invalid Interpretation Code [facility] Work Phone: MRI BREAST WO/W IVCON BILon 05-18-2017 MRI BREAST WO/W IVCON DUNCAN * * *Final Report* * * DATE OF EXAM: May 18 2017 2:32PM [facility] 0773 - MRI BREAST WO/W IVCON DUNCAN / PROCEDURE REASON: Z13.89-Encounter for screening for other disorder * * * * Physician Interpretation * * * * #[id number] - MRI BREAST WO/W IVCON DUNCAN BREAST [...] staff physician. gaurav Estrada M.D., M.D./rafael:05/18/2017 15:28:32 Wrapper Caser: Cally Pierson RT(R)(M), [facility] MRI BI-RADS: 3 Probably benign finding - short term interval follow-up recommended Spreader Operator Automatic: Rafael Transcribe Date/Time: May 18 2017 2:15P Dictated by : MALLIKA PAYNE MD This examination was interpreted and the report reviewed and electronically signed by: CRICKET AMBRIZ MD on May 18 2017 3:28PM EST [id number] [facility] NURSING PROGon 05-18-2017 Protein mass conc HNO ID: [id number] Author: Ema (Rn) DONA Bai Service: PICC [...] 2017 TIME: 1:27 PM PAGER/CONTACT #: [phone] [facility] Vital Signs Date Time Vital Sign Value Performing Clinician Facility 08-26-2024 12:46-0400 Body height 167.[address] Warner Leos MD Work Phone: [facility] 07-24-2024 03:24-0400 Diastolic blood pressure 69 mm[Hg] Dr. Warner Leos MD Work Phone: [facility] 07-24-2024 03:24-0400 Heart rate 52 /min Dr. Warner Leos MD Work Phone: [facility] 07-24-2024 03:24-0400 SaO2% (BldA) [Mass fraction] 100 % Dr. Warner Leos MD Work Phone: [facility] 07-24-2024 03:24-0400 Systolic blood pressure 164 mm[Hg] Dr. Warner Leos MD Work Phone: [facility] 07-24-2024 01:24-0400 Body height 167.[address] Warner Leos MD Work Phone: [facility] 07-24-2024 01:24-0400 Body mass index (BMI) [Ratio] 28 kg/m2 Dr. Warner Leos MD Work Phone: [facility] 07-24-2024 01:24-0400 Body temperature 98 [degF] Dr. Warner Leos MD Work Phone: [facility] 07-24-2024 01:24-0400 Body weight 78.[address] Warner Leos MD Work Phone: [facility] 07-24-2024 01:24-0400 Respiratory rate 16 /min Dr. Warner Leos MD Work Phone: [facility] 02-10-2024 15:30-0500 Body temperature 97.52 [degF] ELDA DEL [employer]ARIO [employer] WORK[employer] [facility] 02-10-2024 15:30-0500 Diastolic Blood Pressure Non-Invasive 72 mm[Hg] ELDA DEL [employer] [facility] 02-10-2024 15:30-0500 Heart rate 84 /min ELDA DEL [employer] WORK[employer] [facility] 02-10-2024 15:30-0500 Reason For Taking VItal Signs ELDA DEL [employer] WORK[employer] [facility] 02-10-2024 15:30-0500 Respiratory rate 16 /min ELDA DEL [employer] WORK[employer] [facility] 02-10-2024 15:30-0500 Systolic Blood Pressure Non-Invasive 146 mm[Hg] ELDA OBREGONRUFF [employer] WORKER [facility] 02-10-2024 06:37-0500 Body temperature 97.34 [degF] ELDA OBREGONRUFF [employer] WORKER [facility] 02-10-2024 06:37-0500 Diastolic Blood Pressure Non-Invasive 82 mm[Hg] ELDA DEL [employer] WORK[employer] [facility] 02-10-2024 06:37-0500 Heart rate 80 /min ELDA DEL ROS[employer]IO [employer] WORK[employer] [facility] 02-10-2024 06:37-0500 Reason For Taking VItal Signs ELDA DEL ROS[employer]IO [employer] WORKER [facility] 02-10-2024 06:37-0500 Respiratory rate 14 /min ELDA DEL [employer]IO [employer] WORKER [facility] 02-10-2024 06:37-0500 Systolic Blood Pressure Non-Invasive 148 mm[Hg] ELDA BUCKNERFF [employer] WORKER [facility] 02-10-2024 03:22-0500 Body temperature 97.52 [degF] ELDA DEL [employer] WORK[employer] [facility] 02-10-2024 03:22-0500 Diastolic Blood Pressure Non-Invasive 81 mm[Hg] ELDA DEL ROS[employer]IO [employer] WORKER [facility] 02-10-2024 03:22-0500 Heart rate 81 /min ELDA DEL [employer] WORKER [facility] 02-10-2024 03:22-0500 Reason For Taking VItal Signs ELDA DEL ROS[employer]IO [employer] WORKER [facility] 02-10-2024 03:22-0500 Respiratory rate 14 /min ELDA DEL ROS[employer]IO [employer] WORKER [facility] 02-10-2024 03:22-0500 Systolic Blood Pressure Non-Invasive 156 mm[Hg] ELDA DEL [employer]IO [employer] WORKER [facility] 02-09-2024 22:01-0500 Heart rate 74 /min ELDA DEL ROS[employer]IO [employer] WORKER [facility] 02-09-2024 21:59-0500 Body height 152 cm ELDA DEL [employer] WORKER [facility] 02-09-2024 21:59-0500 Body weight 67 kg ELDA DEL [employer] WORKER [facility] 02-09-2024 21:59-0500 Body weight 29 kg/m2 ELDA DEL ROS[employer]IO [employer] WORKER [facility] 02-09-2024 21:07-0500 Heart rate 78 /min ELDA DEL [employer] WORK[employer] [facility] 02-09-2024 21:07-0500 Mean blood pressure 90 mm[Hg] ELDA DEL [employer]IO [employer] WORKER [facility] 02-09-2024 20:38-0500 Mean blood pressure 85 mm[Hg] ELDA DEL ROS[employer]IO [employer] WORKER [facility] 02-09-2024 19:39-0500 Heart rate 83 /min ELDA DEL [employer]IO [employer] WORK[employer] [facility] 01-21-2024 10:04-0500 Body height 160 cm INES DENNIS MD [facility] 01-21-2024 10:04-0500 Body temperature 97.52 [degF] INES DENNIS MD [facility] 01-21-2024 10:04-0500 Body weight 68.2 kg INES DENNIS MD [facility] 01-21-2024 10:04-0500 Diastolic Blood Pressure Non-Invasive 81 mm[Hg] INES DENNIS MD [facility] 01-21-2024 10:04-0500 Heart rate 85 /min INES DENNIS MD [facility] 01-21-2024 10:04-0500 Respiratory rate 18 /min INES DENNIS MD [facility] 01-21-2024 10:04-0500 Systolic Blood Pressure Non-Invasive 164 mm[Hg] INES DENNIS MD [facility] 12-09-2023 08:47-0400 Blood Pressure Location INES DENNIS MD [facility] 12-09-2023 08:47-0400 Blood Pressure Method INES DENNIS MD [facility] 12-09-2023 08:47-0400 Body temperature 98.24 [degF] INES DENNIS MD [facility] 12-09-2023 08:47-0400 Diastolic Blood Pressure Non-Invasive 91 mm[Hg] INES DENNIS MD [facility] 12-09-2023 08:47-0400 Heart rate 90 /min INES DENNIS MD [facility] 12-09-2023 08:47-0400 Respiratory rate 18 /min INES DENNIS MD [facility] 12-09-2023 08:47-0400 Systolic Blood Pressure Non-Invasive 161 mm[Hg] INES DENNIS MD [facility] 11-29-2023 12:26-0400 Diastolic Blood Pressure Non-Invasive 76 mm[Hg] SONNY STAHL DO [facility] 11-29-2023 12:26-0400 Heart rate 76 /min SONNY STAHL DO [facility] 11-29-2023 12:26-0400 Respiratory rate 18 /min SONNY STAHL DO [facility] 11-29-2023 12:26-0400 Systolic Blood Pressure Non-Invasive 164 mm[Hg] SONNY STAHL DO [facility] 11-29-2023 08:58-0400 Blood Pressure Cuff Size SONNY STAHL DO [facility] 11-29-2023 08:58-0400 Blood Pressure Location SONNY STAHL DO [facility] 11-29-2023 08:58-0400 Blood Pressure Method SONNY STAHL DO [facility] 11-29-2023 08:58-0400 Body height 155 cm SONNY STAHL DO [facility] 11-29-2023 08:58-0400 Body temperature 97.34 [degF] SONNY STAHL DO [facility] 11-29-2023 08:58-0400 Diastolic Blood Pressure Non-Invasive 83 mm[Hg] SONNY STAHL DO [facility] 11-29-2023 08:58-0400 Heart rate 84 /min SONNY STAHL DO [facility] 11-29-2023 08:58-0400 Respiratory rate 18 /min SONNY STAHL DO [facility] 11-29-2023 08:58-0400 Systolic Blood Pressure Non-Invasive 172 mm[Hg] SONNY STAHL DO [facility] 06-19-2022 12:01-0400 Blood Pressure Cuff Size DR ANISA GOMEZ MD [facility] 06-19-2022 12:01-[address] ANISA GOMEZ MD [facility] 06-19-2022 12:01-[address] ANISA GOMEZ MD [facility] 06-19-2022 12:01-0400 Body height [address] ANISA GOMEZ MD [facility] 06-19-2022 12:01-0400 Body temperature 97.7 [degF] DR ANISA GOMEZ MD [facility] 06-19-2022 12:01-0400 Body weight 76.[address] ANISA GOMEZ MD [facility] 06-19-2022 12:01-0400 Body weight 31.88 kg/m2 DR ANISA GOMEZ MD [facility] 06-19-2022 12:01-0400 Diastolic Blood Pressure Non-Invasive [address] ANISA GOMEZ MD [facility] 06-19-2022 12:01-0400 Heart rate 86 /min DR ANISA GOMEZ MD [facility] 06-19-2022 12:01-0400 Systolic Blood Pressure Non-Invasive [address] ANISA GOMEZ MD [facility] 04-06-2022 09:47-0500 Body height 157.5 cm Paula Alaniz MD Work Phone: [facility] 04-06-2022 09:47-0500 Body temperature 97.81 [degF] Paula Alaniz MD Work Phone: [facility] 04-06-2022 09:47-0500 Body weight 73.94 kg Paula Alaniz MD Work Phone: [facility] 04-06-2022 09:47-0500 Diastolic blood pressure 70 mm[Hg] Paula Alaniz MD Work Phone: [facility] 04-06-2022 09:47-0500 Heart rate 109 /min Paula Alaniz MD Work Phone: [facility] 04-06-2022 09:47-0500 SaO2% (BldA) [Mass fraction] 99 % Paula Alaniz MD Work Phone: [facility] 04-06-2022 09:47-0500 Systolic blood pressure 148 mm[Hg] Paula Alaniz MD Work Phone: [facility] 12-25-2021 16:18-0500 Diastolic Blood Pressure Non-Invasive 69 1 INES DENNIS MD [facility] 12-25-2021 16:18-0500 Systolic Blood Pressure Non-Invasive 189 1 INES DENNIS MD [facility] 12-25-2021 15:56-0500 Body height 157.5 cm INES DENNIS MD [facility] 12-25-2021 15:56-0500 Body temperature 96.44 [degF] INES DENNIS MD [facility] 12-25-2021 15:56-0500 Body weight 65.9 kg INES DENNIS MD [facility] 12-25-2021 15:56-0500 Diastolic Blood Pressure Non-Invasive 109 1 INES DENNIS MD [facility] 12-25-2021 15:56-0500 Heart rate 90 /min INES DENNIS MD [facility] 12-25-2021 15:56-0500 Respiratory rate 20 /min INES DENNIS MD [facility] 12-25-2021 15:56-0500 Systolic Blood Pressure Non-Invasive 202 1 INES DENNIS MD [facility] 12-06-2021 12:58-0400 Diastolic blood pressure 77 mm[Hg] DR KEVIN VIRGEN MD [address] [place] [address] 12-06-2021 12:58-0400 Mean blood pressure 111 mm[Hg] DR KEVIN VIRGEN MD [address] [place] [address] 12-06-2021 12:58-0400 Systolic blood pressure 180 mm[Hg] DR KEVIN VIRGEN MD [facility] 12-06-2021 12:55-0400 Diastolic blood pressure 77 mm[Hg] DR KEVIN VIRGEN MD [facility] 12-06-2021 12:55-0400 Heart rate 60 /min DR KEVIN VIRGEN MD [facility] 12-06-2021 12:55-0400 Mean blood pressure 111 mm[Hg] DR KEVIN VIRGEN MD [facility] 12-06-2021 12:55-0400 Reason For Taking VItal Signs DR KEVIN VIRGEN MD [facility] 12-06-2021 12:55-0400 Respiratory rate 18 /min DR KEVIN VIRGEN MD [address] [place] [address] 12-06-2021 12:55-0400 Systolic blood pressure 180 mm[Hg] DR KEVIN VIRGEN MD [address] [place] [address] 12-06-2021 08:46-0400 Heart rate 78 /min DR KEVIN VIRGEN MD [address] [place] [address] 12-06-2021 08:30-0400 Body temperature 98.06 [degF] DR KEVIN VIRGEN MD [address] [place] [address] 12-06-2021 08:30-0400 Diastolic blood pressure 82 mm[Hg] DR KEVIN VIRGEN MD [address] 12-06-2021 08:30-0400 Heart rate 77 /min DR KEVIN VIRGEN MD [address] [place] [address] 12-06-2021 08:30-0400 Mean blood pressure 106 mm[Hg] DR KEVIN VIRGEN MD [address] [place] [address] 12-06-2021 08:30-0400 Reason For Taking VItal Signs DR KEVIN VIRGEN MD [address] [place] [address] 12-06-2021 08:30-0400 Respiratory rate 17 /min DR KEVIN VIRGEN MD [address] [place] [address] 12-06-2021 08:30-0400 Systolic blood pressure 155 mm[Hg] DR KEVIN VIRGEN MD [address] [place] [address] 12-06-2021 03:45-0400 Body temperature 97.88 [degF] DR KEVIN VIRGEN MD [address] [place] [address] 12-06-2021 03:45-0400 Reason For Taking VItal Signs DR KEVIN VIRGEN MD [address] [place] [address] 12-06-2021 03:45-0400 Respiratory rate 18 /min DR KEVIN VIRGEN MD [address] [place] [address] 12-05-2021 23:53-0400 Body temperature 98.06 [degF] DR KEVIN VIRGEN MD [address] [place] [address] 12-04-2021 15:33-0400 Heart rate 56 /min DR KEVIN VIRGEN MD [address] [place] [address] 12-04-2021 02:47-0400 Heart rate 55 /min DR KEVIN VIRGEN MD [address] [place] [address] 12-03-2021 23:44-0400 Heart rate 60 /min DR KEVIN VIRGEN MD [address] [place] [address] 12-03-2021 21:46-0400 Body height [address] KEVIN VIRGEN MD [address] [place] [address] 12-03-2021 21:46-0400 Body weight 83.[address] KEVIN VIRGEN MD [address] [place] [address] 12-03-2021 21:46-0400 Body weight 32.73 kg/m2 DR KEVIN VIRGEN MD [address] [place] [address] 12-03-2021 21:30-0400 Heart rate 86 /min DR KEVIN VIRGEN MD [address] [place] [address] 12-03-2021 14:26-0400 Body temperature 98.06 [degF] DR KEVIN VIRGEN MD [address] [place] [address] 12-03-2021 14:26-0400 Body weight 83.[address] KEVIN VIRGEN MD [address] [place] [address] NEGATED: Highlighted [id number] 10:24-0500 BMI (Body Mass Index) 37.26 kg/m2 Rigo Best AT [facility] Work Phone: NEGATED: Highlighted [id number] 10:24-0500 BP Diastolic 72 mm[Hg] Rigo Best AT [facility] Work Phone: NEGATED: Highlighted [id number] 10:24-0500 BP Diastolic 82 mm[Hg] Rigo Sitko AT [facility] Work Phone: NEGATED: Highlighted [id number] 10:24-0500 BP Systolic 154 mm[Hg] Rigo Sitko AT [facility] Work Phone: NEGATED: Highlighted [id number] 10:24-0500 BP Systolic 149 mm[Hg] Rigo Sitko AT [facility] Work Phone: NEGATED: Highlighted [id number] 10:24-0500 Height 157.48 cm Rigo Sitko AT [facility] Work Phone: NEGATED: Highlighted [id number] 10:24-0500 Height 157 cm Rigo Sitko AT [facility] Work Phone: NEGATED: Highlighted [id number] 10:24-0500 Pulse (Heart Rate) 60 /min Rigo Best AT [facility] Work Phone: NEGATED: Highlighted [id number] 10:24-0500 Weight 92.08 kg Rigo Best AT [facility] Work Phone: NEGATED: Highlighted [id number] 10:24-0500 Weight 92 kg Rigo Best AT [facility] Work Phone: Encounters Encounter Date Encounter Type Care Provider Facility Start: 10-16-2024 ambulatory Jairon TREVIÑO Fa cility:[facility] Start: 10-16-2024 Registered Referred Jairon LockhartKate Jordon Start: 09-18-2024 ambulatory Jairon TREVIÑO Fa cility:[facility] Start: 09-18-2024 Registered Referred Jairon LockhartKate Jordon Start: 08-28-2024 End: 08-28-2024 ambulatory Jairon Medel OLS Facility:[facility] Start: 08-28-2024 End: 08-28-2024 Departed Referred Jairon Medel MD -[facility] Start: 08-28-2024 Registered Referred Jairon Medel MD [facility] Start: 08-21-2024 ambulatory Carrillobraden Cortezdorcas Facili ty:[facility] Start: 08-21-2024 Registered Referred Jairon Medel MD -[facility] Start: 08-08-2024 End: 08-08-[address] Warner Leos MD Work Phone: -[facility] Start: 08-08-2024 End: 08-08-[address] Jairon Medel MD -[facility] Work Phone: Start: 08-08-2024 Non-patient / Non-visit Dr. Julia young MD -[facility] Work Phone: Start: 07-24-2024 End: 07-24-[address] Warner Leos MD Work Phone: -[facility] Start: 07-24-2024 End: 07-24-2024 Patient encounter procedure Jane Barth LMSW-C -[facility] Work Phone: Start: 07-24-2024 End: 07-24-2024 Emergency department patient visit Dr. Warner Leos MD Work Phone: -Emergency Department Work Phone: Start: 06-27-2024 End: 06-27-[address] Warner Leos MD Work Phone: -[facility] Start: 06-27-2024 End: 06-27-[address] Jairon Medel MD -[facility] Work Phone: Start: 06-26-2024 End: 06-26-[address] Warner Leos MD Work Phone: [facility] Work Phone: Start: 06-26-2024 End: 06-26-2024 Departed Referred Jairon Ruvalcaba Start: 06-26-2024 End: 06-26-2024 ambulatory Jairon Medel OLS Facility:[facility] Start: 05-29-2024 End: 05-29-[address] Warner Leos MD Work Phone: [facility] Work Phone: Start: 05-29-2024 End: 05-29-2024 Departed Referred Jairon Ruvalcaba Start: 05-29-2024 Registered Referred Jairon Ruvalcaba Start: 05-29-2024 End: 05-29-2024 ambulatory Carrillomahadmakenzie Gianfranco TREVIÑO Facility:[facility] Start: 05-24-2024 End: 05-24-[address] Warner Leos MD Work Phone: [facility] Work Phone: Start: 05-24-2024 End: 05-24-2024 Departed Referred Jairon Ruvalcaba Start: 05-24-2024 Registered Referred Jairon Ruvalcaba Start: 05-23-2024 End: 05-24-[address] Warner Leos MD Work Phone: [facility] Work Phone: Start: 05-23-2024 End: 05-23-2024 Patient encounter procedure Jane Barth [facility] -[facility] Work Phone: Start: 05-15-2024 End: 05-15-[address] Warner Leos MD Work Phone: [facility] Work Phone: Start: 05-15-2024 End: 05-15-2024 Departed Referred Jairon Ruvalcaba Start: 05-15-2024 Registered Referred Jairon Ruvalcaba Start: 05-15-2024 End: 05-15-2024 ambulatory Carrillobraden Medel OLS Facility:[facility] Start: 05-12-2024 End: 05-12-[address] Warner Leos MD Work Phone: [facility] Work Phone: Start: 05-12-2024 End: 05-12-2024 Patient encounter procedure Jane Barth LMSW-C -[facility] Work Phone: Start: 05-01-2024 End: 05-01-[address] Warner Leos MD Work Phone: [facility] Work Phone: Start: 05-01-2024 End: 05-01-2024 Departed Referred Jairon Ruvalcaba Start: 05-01-2024 End: 05-01-2024 ambulatory Carrillobraden Medel OLS Facility:[facility] Start: 04-26-2024 End: 04-26-2024 ambulatory Jane Barth LMSW Facility:[facility] Start: 04-26-2024 End: 04-26-2024 Patient encounter procedure Jane Barth LMSW-C -[facility] Work Phone: Start: 04-11-2024 End: 04-11-2024 ambulatory Jairon Medel Facility:[facility] Start: 04-11-2024 End: 04-11-[address] Jairon Medel MD -[facility] Work Phone: Start: 04-03-2024 End: 04-03-2024 Patient encounter procedure Jane Barth LMSW-C -[facility] Work Phone: Start: 04-03-2024 End: 04-03-2024 ambulatory Jane Barth LMSW Facility:[facility] Start: 04-03-2024 Registered Referred Jairon Ruvalcaba Start: 03-27-2024 ambulatory Jairon TREVIÑO Fa cility:[facility] Start: 03-27-2024 Registered Referred Jairon LockhartKate Jordon Start: 02-29-2024 End: 02-29-2024 ambulatory Jairon Medel Facility[facility] Start: 02-29-2024 End: 02-29-[address] Jairon Medel MD -[facility] Work Phone: Start: 02-28-2024 End: 02-28-2024 Departed Referred Jairon LockhartKate Ruvalcaba Start: 02-28-2024 End: 02-28-2024 ambulatory Warner Leos Jr. 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 [facility] Start: 01-21-2024 End: 01-21-2024 Emergency department patient visit INES DENNIS MD [facility] Start: 01-05-2024 End: 01-05-[address] LARRY THOMAS DO Facility:[facility] Start: 01-05-2024 End: 01-05-[address] LARRY THOMAS DO [facility] Start: 12-29-2023 End: 12-29-[address] LARRY THOMAS DO [facility] Start: 12-29-2023 End: 12-29-[address] LARRY THOMAS DO [facility] Start: 12-21-2023 End: 12-21-[address] LARRY THOMAS DO [facility] Start: 12-21-2023 End: 12-21-[address] LARRY THOMAS DO [facility] Start: 12-18-2023 End: 01-26-[address] LARRY THOMAS DO Facility:[facility] Start: 12-15-2023 End: 12-15-[address] LARRY THOMAS DO [facility] Start: 12-15-2023 End: 12-15-[address] LARRY THOMAS DO [facility] Start: 12-15-2023 End: 12-19-[address] LARRY THOMAS DO [facility] Start: 12-15-2023 End: 12-19-[address] LARRY THOMAS DO [facility] Start: 12-09-2023 End: 12-09-2023 Emergency department patient visit INES DENNIS MD [facility] Start: 11-29-2023 End: 11-29-2023 Emergency department patient visit SONNY STAHL DO [facility] Start: 07-08-2023 End: 07-09-[address] LARRY THOMAS DO Facility:[facility] Start: 07-08-2023 End: 07-08-[address] LARRY THOMAS DO [facility] Start: 04-14-2023 End: 04-15-2023 ambulatory MAHAD LORENZO MD Facility:[facility] Start: 04-14-2023 End: 04-14-2023 Patient encounter procedure MAHAD LORENZO MD [facility] Start: 04-09-2023 End: 05-06-[address] LARRY THOMAS DO Facility:[facility] Start: 04-09-2023 End: 02-14-[address] LARRY THOMAS DO Facility:[facility] Start: 04-07-2023 End: 04-08-[address] LARRY THOMAS DO Facility:[facility] Start: 04-07-2023 End: 04-07-2023 Patient encounter procedure MAHAD LORENZO MD [facility] Start: 03-10-2023 End: 03-11-[address] LARRY THOMAS DO Facility:[facility] Start: 12-14-2022 End: 12-15-[address] LARRY THOMAS DO Facility:[facility] Start: 2022 End: 11-09-[address] LARRY THOMAS DO Facility:[facility] Start: 2022 End: 11-09-2022 Coordination of care plan DR LARRY THOMAS DO [facility] Start: 09-16-2022 End: 09-17-[address] LARRY THOMAS DO Facility:[facility] Start: 07-16-2022 End: 07-17-[address] ANISA GOMEZ MD Facility:[facility] Start: 06-19-2022 End: 06-19-[address] ANISA GOMEZ MD [facility] Start: 06-03-2022 Telephone encounter Paula Yepez MD Work Phone: General Surgery Comment on above: Request for medical records Start: 04-15-2022 End: 04-15-[address] LARRY THOMAS DO [facility] Start: 04-14-2022 End: 04-14-[address] LARRY THOMAS DO [facility] Start: 04-06-2022 End: 04-07-2022 ambulatory PAULA ALANIZ Facility:[facility] Start: 04-06-2022 End: 04-06-2022 Patient encounter procedure Paula Alaniz MD Work Phone: General Surgery Comment on above: Abnormal ultrasound of breast; History of left breast cancer Start: 03-23-2022 End: 03-23-2022 Patient encounter procedure ALANNA WRIGHT DO [facility] Start: 03-09-2022 End: 03-09-[address] LARRY THOMAS DO [facility] Start: 02-23-2022 End: 02-23-2022 Patient encounter procedure ALANNA WRIGHT DO [facility] Start: 01-22-2022 End: 01-22-2022 Patient encounter procedure ALANNA WRIGHT DO [facility] Start: 12-25-2021 End: 12-25-2021 Emergency department patient visit INES DENNIS MD [facility] Start: 12-03-2021 End: 12-06-[address] KEVIN VIRGEN MD [facility] Start: 05-05-2021 End: 05-05-2021 Patient encounter procedure ALANNA WRIGHT DO [facility] Start: 12-11-2020 End: 12-11-2020 Patient encounter procedure SEAN POOLE MD [facility] Start: 03-01-2018 Patient encounter procedure [facility] Start: 01-17-2018 End: 01-17-2018 Patient encounter procedure Carla Dye MD Work Phone: [facility] Work Phone: Start: 05-18-2017 Patient encounter procedure [facility] Procedures Date Procedure Procedure Detail Performing [...] Date Care Activity Detail Author Start: 07-24-2024 [facility] Start: 02-08-2022 ADVANCE DIRECTIVE DISCUSSION ADVANCE DIRECTIVE DISCUSSION [facility] Start: 02-08-2022 DEPRESSION ASSESSMENT DEPRESSION ASSESSMENT [facility] Start: 08-10-2021 COVID-19 VACCINE (5 - Booster for Moderna series) COVID-19 VACCINE (5 - Booster for Moderna series) [facility] Start: 01-17-2018 End: 01-17-2018 Appointment Appointment [facility] Work Phone: Start: 09-23-2003 BONE DENSITY BONE DENSITY [facility] Start: 09-23-2003 PNEUMOCOCCAL: 65+ (1 - PCV) PNEUMOCOCCAL: 65+ (1 - PCV) [facility] Start: 1988 SHINGRIX VACCINE (1 of 2) SHINGRIX VACCINE (1 of 2) [facility] Start: 09-23-1983 DIABETES SCREEN DIABETES SCREEN [facility] Start: 1957 Urine microalbumin profile DTAP,TDAP,TD (1 - Tdap) [facility] Patient Education [facility] Work Phone: Patient referral [facility] Work Phone: Immunizations Immunization Date Immunization Notes Care Provider Fa cili 12-27-2022 SARS-CoV-2 (COVID-19 ) [id number] MAHAD LORENZO MD [facility] 11-05-2022 zoster vaccine recombinant MAHAD LORENZO MD [facility] 10-03-2022 influenza virus vacc ine, unspecified formulation MAHAD LORENZO MD [facility] 09-15-2022 pneumococcal 20-lisa nt conjugate vaccine MAHAD LORENZO MD [facility] 01-10-2022 influenza virus vacc ine, unspecified formulation MAHAD LORENZO MD [facility] 06-15-2021 SARS-CoV-2 (COVID-19 ) mRNA-1273 vaccine MAHAD LORENZO MD [facility] 12-12-2020 SARS-CoV-2 (COVID-19 ) mRNA-1273 vaccine MAHAD LORENZO MD [facility] Comment on above: Result Comment: 2022: [id number] 10-22-2020 influenza virus vacc ine, unspecified formulation MAHAD LORENZO MD [facility] 03-28-2020 COVID-19, mRNA, LNP- S, PF, 100 mcg/ 0.5 mL dose; Translations: [Moderna COVID-19 Vaccine] SEAN POOLE MD [facility] 02-29-2020 COVID-19, mRNA, LNP- S, PF, 100 mcg/ 0.5 mL dose; Translations: [Moderna COVID-19 Vaccine] SEAN POOLE MD [facility] 10-12-2019 influenza virus vacc ine, unspecified formulation SEAN POOLE MD [facility] Comment on above: Result Comment: michael peck administered 10-11-2019 influenza virus vacc ine, unspecified formulation MAHAD LORENZO MD [facility] 10-11-2019 pneumococcal conjuga te vaccine, 13 valent SEAN POOLE MD [facility] 10-07-2018 influenza virus vacc ine, unspecified formulation SEAN POOLE MD [facility] 12-21-2017 influenza virus vacc ine, unspecified formulation SEAN POOLE MD [facility] 10-27-2016 influenza virus vacc ine, unspecified formulation SEAN POOLE MD [facility] 10-29-2015 influenza virus vacc ine, unspecified formulation SEAN POOLE MD [facility] 10-30-2014 influenza virus vacc ine, unspecified formulation SEAN POOLE MD [facility] 10-31-2013 influenza virus vacc ine, unspecified formulation ESAN POOLE MD [facility] 11-01-2012 influenza virus vacc ine, unspecified formulation SEAN POOLE MD [facility] 01-09-2005 pneumococcal polysaccharide vaccine, 23 valent SEAN POOLE MD [facility] No information available. Rigo Best AT [facility] Work Phone: Payers Date Payer Category Payer Self-pay [id number] 2017 Private Health Insurance [id number] 2017 Unknown [id number] 2003 Medicare [id number] [id number] [id number] 2003 Medicare [id number] 1940 Unknown [id number] 2.16.840.1.456545.3.579.2. 1940 Unknown [id number] 2.16.840.1.593816.3.579.2. 1938 Unknown [id number] 2.16.840.1.172598.3.579.2. 1938 Unknown [id number] 2.16.840.1.205216.3.579.2. 1938 Unknown [id number] 2.16.840.1.560025.3.579.2.627 1938 Unknown [id number] 2.16.840.1.069384.3.579.2. 1938 Unknown [id number] 2.16.840.1.221773.3.579.2. 1938 Unknown [id number] 2.16.840.1.140214.3.579.2. 1938 Unknown [id number] 2.16.840.1.454431.3.579.2. 1938 Unknown [id number] 2.16.840.1.753745.3.579.2. 1938 Unknown [id number] 2..840.1.602672.3.579.2. 1938 Unknown [id number] 2.840.1.838391.3.579.2. 1938 Unknown [id number] 2..840.1.593482.3.579.2. 1938 Unknown [id number] 2.840.1.627206.3.579.2. 1938 Unknown [id number] 2.840.1.205064.3.579.2. 1938 Unknown [id number] 2.840.1.763270.3.579.2. 1938 Unknown [id number] 2.840.1.144277.3.579.2.627 Medicare MEDICARE PART A B [id number] Unknown [id number] 2.16.840.1.454327.3.579.2.462 Unknown [id number] 2.16.840.1.751269.3.579.2.462 Unknown [id number] 2.16840.1.665223.3.579.2.462 Unknown [id number] 2.16.840.1.202543.3.579.2.462 Unknown [id number] 2.16.840.1.658181.3.579.2.462 Unknown [id number] 2.16840.1.556858.3.579.2.462 Unknown [id number] 2.840.1.377618.3.579.2.462 Unknown [id number] 2.840.1.978730.3.579.2.462 Unknown [id number] 2.840.1.927736.3.579.2.462 Unknown [id number] 2.840.1.074054.3.579.2.462 Unknown [id number] 2.840.1.479637.3.579.2.462 Unknown [id number] 2.840.1.661417.3.579.2.462 Unknown [id number] 2.840.1.262665.3.579.2.462 Unknown [id number] 2.840.1.733396.3.579.2.462 Unknown [id number] 2.840.1.639239.3.579.2.462 Unknown [id number] 2.840.1.976649.3.579.2.462 Unknown [id number] 2.840.1.293763.3.579.2.462 Unknown [id number] 2.840.1.128114.3.579.2.462 Unknown [id number] 2.840.1.350693.3.579.2.462 Unknown [id number] 2.840.1.773615.3.579.2.462 Unknown [id number] 2.840.1.179725.3.579.2.462 Unknown [id number] 2.16840.1.835750.3.579.2.462 Unknown [id number] 2.16.840.1.042076.3.579.2.462 Social History Date Type Detail Facility Start: 01-17-2018 End: 01-17-2018 Assertion Unknown if ever smoked [facility] Work Phone: Start: 04-07-2019 End: 08-26-2024 Never smoked tobacco (finding) [facility] Sex Assigned At 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 (finding) [facility] Start: 1940 Sex Assigned At Not on file [facility] Start: 05-25-2013 End: 05-31-2024 Sex Female (finding) [facility] Start: 1940 Sex Assigned At Female [facility] Sex Female [facility] Medical Equipment Procedure Code Equipment Code [...] Assessment Result Facility 02-10-2024 Functional Status Nurse Safety C hecks q2hrs Performed Other: 7AM - 4PM [facility] 02-10-2024 Functional Status Financial gaston gement, Home management, Laundry, Meal preparation, Personal ADL, Shopping [facility] 02-10-2024 Functional Status Sup [facility] 02-10-2024 Functional Status Identified as high risk, Door open, Non-Slip footwear, Room check performed [facility] 02-10-2024 Functional Status Jerrell Garcia [facility] 02-10-2024 Functional Status Jerrell Garcia [facility] 02-10-2024 Functional Status Jerrell [facility] 02-09-2024 [facility] 01-21[facility] Functional Status Minimum assistance [facility] 01-21-2024 Functional Status Independent [facility] 12-09-2023 Functional Status Minimum assistance [facility] 12-09-2023 Functional Status ID band on, Call device within reach, Bed in low position, Wheels locked, Upper/Half-Length side-rails up, Visitor at bedside, Safety level maintained [facility] 11-29-2023 Functional Status Up ad nazario [facility] 11-29-2023 Functional Status Standard Safet y ID band on, Call device within reach, Bed in low position, Wheels locked, Upper/Half-Length side-rails up, Visitor at bedside [facility] 06-19-2022 Functional Status Sensory Deficits None [facility] 12-25-2021 Functional Status Independent Jerrell [facility] 12-06-2021 Functional Status None Jerrell [facility] 12-06-2021 Functional Status Room check performed [facility] 12-06-2021 Functional Status Jerrell [facility] 12-06-2021 Functional Status Jerrell [facility] 12-05-2021 Functional Status Jerrell [facility] 12-05-2021 Functional Status Jerrell [facility] 12-05-2021 Functional Status Mod A 1 Jerrell [facility] 12-04-2021 Functional Status Single level home [facility] 12-04-2021 Functional Status Jerrell [facility] 12-04-2021 Functional Status Jerrell [facility] 12-04-2021 Functional Status Jerrell [facility] 12-04-2021 Functional Status Jerrell [facility] 12-04-2021 Functional Status SCD On/Re-appl ied bilateral knee high [facility] 12-03-2021 Functional Status Ambulation in Room [facility] Mental Status Date Assessment Result Facility 02-10-2024 Mental Status Not oriented to time, Forgetful, Follows simple commands [facility] 02-09-2024 Mental Status [facility] 02-09-2024 Mental Status [facility] 01-21-2024 Mental Status Orientation Not oriented to situation, Forgetful [facility] 01-21-2024 Mental Status [facility] 12-09-2023 Mental Status Orientation Oriented x 4 [facility] 12-09-2023 Mental Status [facility] 11-29-2023 Mental Status Orientation Oriented x 4 [facility] 11-29-2023 Mental Status [facility] 12-25-2021 Mental Status Orientation Oriented x 4 [facility] 12-06-2021 Mental Status Oriented x 4, Forgetful [facility] 12-06-2021 Mental Status [facility] 12-06-2021 Mental Status [facility] Clinical Notes 12-03-2021 to 07-24-2024 Note Date & Type Note Facility 07-24-2024 Discharge summary [facility] 07-24-2024 Radiology Diagnostic study note [facility] [address] [place] [address] HIP, UNI W/ Pelvis 2-3 Views MR#: [id number] Acct: [id number] Name: CT DALTON Rep #: [id number] : 1940 F 83 From: Jane Vance MD PCP: Dr. Jairon Medel MD Status: R EG ER Study:HIP, UNI W/ Pelvis 2-3 Views Date of Ex am: 07/24/24 Exam# [id number] Ordering Dr: Sharon Harry MD PROCEDURE: HIP, [...] Right hip moderate degenerative changes. Reading Location: [place] [address] CC: Dr. Jairon Medel MD; Dr. Jean Claude Harry MD ~ Spreader Operator Automatic: Signed [facility] 02-10-2024 Hospital Discharge instructions Patient Education 02/10/2024 15:03:52 Dementia, Dzje-bi-Qqus Dementia Dementia is a condition that affects [...] Follow these instructions at home: Medicines Take rxvl-wal-gdrpkqw and prescription medicines only as told by [...] 01/07/2009 Document Revised: 04/11/2019 Document Reviewed: 04/11/2019 [employer] Patient Education 2020 [employer]. Follow Up Care 02/09/2024 19:37:05 With:LARRY THOMAS DO Address: [address] [place] [address] [phone] When:02/16/2024 09:30:00 Comments:This is your post-hospital appointment. Follow-up as scheduled. [facility] 02-10-2024 Note Discharge Instructions Thank you for allowing [facility] to assist you with your healthcare needs. The following is important discharge information regarding your hospital visit. Your Care Team SUSY ALBRIGHT APRN-SHAMEKA Your Diagnosis (HFpEF) heart failure with preserved ejection fraction Dementia Weakness What to do next Scheduled Follow-Up Appointments Appointment Type When With Where Contact Information StatusPC OV 02/16/2024 09:30 AM EST LARRY THOMAS DO [address] [id number] Confirmed Follow Up Appointments Follow Up with LARRY THOMAS DO When:02/16/2024 09:30 AM EST Where:[address] [place] [phone] Additional Information: This is your post-hospital appointment. [...] pharmacies. Medication Leaflets memantine (cyndie MAN teen) Namenda Namenda KAVON What is the most important [...] may report side effects to FDA at 4-095-DUX-1180. What other drugs will affect memantine? Tell [...] may interact with memantine, including prescription and cfwn-rea-terlwny medicines, vitamins, and herbal products. Not all [...] to ensure that the information provided by [employer] ('[employer]') is accurate, up-to-date, and complete, but no guarantee is made to that effect. Drug information contained herein may be time sensitive. [employer] information has been compiled for use by healthcare practitioners and consumers in the [place] and therefore [employer] does not warrant that uses outside of the [place] are appropriate, unless specifically indicated otherwise. [employer] drug information does not endorse drugs, diagnose patients or recommend therapy. [employer] drug information is an informational resource designed [...] effective or appropriate for any given patient. [employer] does not assume any responsibility for any aspect of healthcare administered with the aid of information [employer] provides. The information contained herein is not intended to cover all possible uses, directions, precautions, warnings, drug interactions, allergic reactions, or adverse effects. If you have questions about the drugs you are taking, check with your doctor, nurse or pharmacist. Copyright 5842-0105 [employer] Version: 5.01. Revision Date: 09/21/2022. Education Materials [...] Follow these instructions at home: Medicines Take yaub-bxv-nfijado and prescription medicines only as told by [...] 01/07/2009 Document Revised: 04/11/2019 Document Reviewed: 04/11/2019 [employer] Patient Education 2020 [employer] Additional Information VACCINATE! IT SAVES LIVES! Members of the community who have not yet received the COVID-19 vaccine and would like to receive it can visit one of [facility] vaccine clinics. There are many vaccine clinic locations within the [facility]. For locations and available times, please visit https://gettheshot.coronavirus.[place].gov/. It is important to note that some COVID mobile vaccine clinics are held outdoors and may be canceled in rainy or stormy conditions. To learn more about pediatric vaccinations (ages 5-11), we invite you to visit the [employer] webpage. https://www.Rai[employer].org/pag es/5211-Wduzn-Qrokypgpmnv-Frequent el-Ulpqx-Sougaicjd.html To learn more about the COVID-19 vaccine, we invite you to visit the CDC website for a list of frequently asked questions.https://www.cdc.gov/armando navirus/2019-ncov/vaccines/faq.htm l [facility] Patient Portal Access Instructions: Stay connected with your healthcare team and access your personal medical information anytime with the [facility] Patient Portal. Please follow the directions below to create your [facility] account: 1.Access the email account you provided upon registration to the hospital/physician office.2.Look for an invitation email from [facility].3.Open the email and access the invitation link: Accept Invitation to [employer].4.Fill in the required alejandro to create your account. To access your account, visit [employer]/ShoeboxedOneChart. Click the blue button labeled Access Patient [...] you will allow to register on the [facility] Patient Portal for access to your information. You can also access the [facility] Patient Portal on the Xcerionwhere angelica. Simply click on Patient Portal and then log into your account. If you would like to receive a full copy of your medical records, please contact the [facility] Medical Records Department by calling [phone], Wednesday through Wednesday between 8 a.m. and [...] Call your local pharmacy or go to [email or web address] to find one close to you.3.Make use of household items: Use cat litter or old coffee grounds to dispose medications if other options are not available. Mix your drugs with these household products, seal them in an airtight container and throw it into the garbage. Call [facility]: [phone] to be sure your drugs can be [...] CHART COPY. Signatures Patient Education Materials Dementia, Rkel-rn-Iczo Medication Leaflets memantine My discharge plan and instructions have been reviewed and explained to me and I,CT DALTON understand my current condition and have read and understand these discharge instructions. I have received a written copy of the plan/instructions. If I have questions, I am aware that I should contact my doctor. Patient/Paper Baler Signature: Date/Time: Relationship to Patient: ___ Witness Name/Signature: Date/Time: [facility] 02-10-2024 Evaluation + Plan note Extrac yamilet from: Title:History and Physical Author:SUSY ALBRIGHT APRN-CELLOPHANE WORKER Date:02/10/24 1. Weakness 2. (HFpEF) heart failure [...] Date:02/16/2024 09:30:00 AM Scheduled Provider:LARRY THOMAS DO Location:[facility] Appointment Type:PC OV [facility] 01-02-2025 Note Date of Service 02/10/24 Chief Complaint patient called EMS with complaint of BLE swelling. patient poor historian but continues to report BLE swelling on arrival. also states that she feels weak. History of Present Illness 83 year old female with past medical history of dementia, urinary frequency, dizziness, breast cancer, CKD Stage 3, anemia, HLD, HFpEF. Patient presented to [facility] ED on 02/09/24 due [...] by SUSY ALBRIGHT on 02/10/2024 10:21 AM [facility]01-01-2025 Note* Exam Date Time Procedure Performing Provider Status 02/09/24 8:10 PM XR Chest 1 View EILEEN CHRISTINE DO; Arnaldo h (Verified) [id number] ORIGINAL EXAMINATION: ONE XRAY VIEW OF THE [...] 02/09/2024 9:08:10 PM Ordering Provider: TRIXIE BARONE [facility]01-01-2025 Note* Exam Date Time Procedure Performing Provider Status 02/09/24 7:59 PM EKG [ED AOH] - CV MD TRIXIE BARONE MD; Auth (Verified) ECG Final Report Sinus rhythm LVH by voltage Inferior infarct, old Anterior Q waves, possibly due to LVH Electronic Signature: MD TRIXIE BARONE MD 02/09/2024 20:03:00 [facility]12-13-2024 Hospital Discharge instructions Patient Education 01/21/2024 11:14:13 [...] mid-urethra. Front view of female urinary tract. 8789-9085 [employer]. [address] [place] [address]. All rights reserved. This information is not intended as a substitute for professional medical care. Always follow yourhealthcare professional's instructions. Follow Up Care 01/21/2024 09:33:55 With:LARRY THOMAS DO Address: [address] [facility] [place], [place] [phone]- [phone] When:2-4 days [facility] 12-13-2024 Note Discharge Instructions Thank you for allowing [facility] to assist you with your healthcare needs. The following is importantdischarge information regarding your hospital visit. Diagnosis from Today's Visit Bladder pain What to Do Next Instructions from Your Care Team No qualifying data available. Post Acute Orders No qualifying data available. You Need to Schedule the Following Appointments Follow Up with LARRY THOMAS DO When:Within 2-4 days Where:[address] [facility] [place] [address]- [phone] Allergies NKA Medications Please ask your primary [...] mid-urethra. Front view of female urinary tract. 0481-7393 [employer]. [address] [place] [address], [place] [address]. All rights reserved. This information is not intended as a substitute for professional medical care. Always follow yourhealthcare professional's instructions. Additional Information VACCINATE! IT SAVES LIVES! Members of the community who have not yet received the COVID-19 vaccine and would like to receive it can visit one of [facility] vaccine clinics. There are many vaccine clinic locations within the [facility]. For locations and available times, please visit www.gettheshot.coronavirus.[place].gov/. It is important to note that some COVID mobile vaccine clinics are held outdoors and may be canceled in rainy or stormy conditions. To learn more about pediatric vaccinations (ages 5-11), we invite you to visit the [facility] webpage. https://www.[facility].org/pages/4727-Uabod-Sduugdfudow-Zjbsomzxgk-Dkrnk-Wty stions.htmlTo learn more about the COVID-19 vaccine, we invite you to visit the CDC website for a list of frequently asked questions. https://www.cdc.gov/coronavirus/2019-ncov/vaccines/faq.html [facility] Patient Portal Access Instructions: Stay connected with your healthcare team and access your personal medical information anytime with the [facility] Patient Portal. If you would like a full copy of your medical records please contact the [facility] Medical Records Department Wednesday through Wednesday between 8a.m. and 4:30p.m. Please follow the directions below to access the portal: 1.Access the email account you provided upon registration to the hospital.2.Look for an invitation email from [facility].3.Open the email and access the invitation link: Accept Invitation to [employer]4.Fill in the required alejandro to create your [...] you will allow to register on the [facility] Patient Portal for access to your information. You can also access the [employer] Patient Portal on the MyNextRun. Simply click on Health Records under Kensho and then click on the Jerrell logo. [...] Call your local pharmacy or go to [email or web address] [email or web address] to find one close to you.3.Make use of household items: Use cat litter or old coffee grounds to dispose medications if other options arenot available. Mix your drugs with these household products, seal them in an airtight container andthrow it into the garbage. Call [facility]: [phone] to be sure your drugs can be [...] aware that I should contact my doctor. Patient/Paper Baler Signature: Date/Time: Relationship to Patient: Witness Name/Signature: Date/Time: [facility]11-12-2024 Note ORIGINAL EXAMINATION: AP lateral obliques 4 [...] Date: 12/21/2023 4:34:05 PM Ordering Provider: [facility]11-12-2024 Note ORIGINAL EXAMINATION: TWO XRAY VIEWS OF [...] Date: 12/21/2023 4:21:17 PM Ordering Provider: [facility]11-09-2024 Note. MICRO - Microbiology PROCEDURE: Urine Culture [...] Locations *1: This test was performed at: [facility], [address] [place] [address], [phone] , [facility]10-31-2024 Hospital Discharge instructions Patient Education 12/09/2023 [...] mid-urethra. Front view of female urinary tract. [phone] [employer]. [address] [place] [address]. All rights reserved. This information is not intended as a substitute for professional medical care. Always follow yourhealthcare professional's instructions. Follow Up Care 12/09/2023 08:33:51 With:LARRY THOMAS DO Address: [address] [place] [phone] When:2-4 days [facility] 10-31-2024 Note Discharge Instructions Thank you for allowing [facility] to assist you with your healthcare needs. The following is importantdischarge information regarding your hospital visit. Diagnosis from Today's Visit Urinary frequency What to Do Next Instructions from Your Care Team No qualifying data available. Post Acute Orders No qualifying data available. You Need to Schedule the Following Appointments Follow Up with LARRY THOMAS DO When:Within 2-4 days Where:[address] [place] [phone] Allergies NKA Medications Please ask your primary [...] mid-urethra. Front view of female urinary tract. 4379-2506 [employer]. [address] [place] [address], [place] [address]. All rights reserved. This information is not intended as a substitute for professional medical care. Always follow yourhealthcare professional's instructions. Additional Information VACCINATE! IT SAVES LIVES! Members of the community who have not yet received the COVID-19 vaccine and would like to receive it can visit one of [facility] vaccine clinics. There are many vaccine clinic locations within the [facility]. For locations and available times, please visit www.gettheshot.coronavirus.[place].gov/. It is important to note that some COVID mobile vaccine clinics are held outdoors and may be canceled in rainy or stormy conditions. To learn more about pediatric vaccinations (ages 5-11), we invite you to visit the [facility] webpage. https://www.[facility].org/pages/4426-Xicva-Hhzqetklgii-Iyqouefhsz-Mogbh-Qva stions.htmlTo learn more about the COVID-19 vaccine, we invite you to visit the CDC website for a list of frequently asked questions. https://www.cdc.gov/coronavirus/2019-ncov/vaccines/faq.html [facility] Patient Portal Access Instructions: Stay connected with your healthcare team and access your personal medical information anytime with the [employer] Patient Portal. If you would like a full copy of your medical records please contact the [facility] Medical Records Department Wednesday through Wednesday between 8a.m. and 4:30p.m. Please follow the directions below to access the portal: 1.Access the email account you provided upon registration to the hospital.2.Look for an invitation email from [facility].3.Open the email and access the invitation link: Accept Invitation to [employer]4.Fill in the required alejandro to create your account. Sign into www.Chinese [employer] with your username and password that you [...] you will allow to register on the [employer] Patient Portal for access to your information. You can also access the [employer] Patient Portal on the MyNextRun. Simply click on Health Records under Kensho and then click on the [employer]rell logo. [...] Call your local pharmacy or go to http://[email or web address] [email or web address]/[email or web address] to find one close to you.3.Make use of household items: Use cat litter or old coffee grounds to dispose medications if other options arenot available. Mix your drugs with these household products, seal them in an airtight container andthrow it into the garbage. Call [facility]: [phone] to be sure your drugs can be [...] aware that I should contact my doctor. Patient/Paper Baler Signature: Date/Time: Relationship to Patient: Witness Name/Signature: Date/Time: [facility]10-21-2024 Hospital Discharge instructions Patient Education 11/29/2023 12:04:12 [...] or swelling over your back or spine 6353-7753 [employer]. [address] [place] [address], [place] [address]. All rights reserved. This information is not intended as a substitute for professional medical care. Always follow yourhealthcare professional's instructions. Follow Up Care 11/29/2023 08:56:34 With:Go to emergency room if symptoms worsen Address:Unknown When:2-4 days With:LARRY THOMAS DO Address: [address] [place] [phone] When:2-4 days [facility] 10-21-2024 Note Discharge Instructions Thank you for [...] with LARRY THOMAS DO When:Within 2-4 days Where:[address] [place] [phone] Allergies NKA Medications Please ask your primary [...] or swelling over your back or spine 9911-8104 [employer]. [address] [place] [address], [place] [address]. All rights reserved. This information is not intended as a substitute for professional medical care. Always follow yourhealthcare professional's instructions. Additional Information VACCINATE! IT SAVES LIVES! Members of the community who have not yet received the COVID-19 vaccine and would like to receive it can visit one of [facility] vaccine clinics. There are many vaccine clinic locations within the [facility]. For locations and available times, please visit www.gettheshot.coronavirus.[place].gov/. It is important to note that some COVID mobile vaccine clinics are held outdoors and may be canceled in rainy or stormy conditions. To learn more about pediatric vaccinations (ages 5-11), we invite you to visit the [facility] webpage. https://www.[facility].org/pages/9254-Ewyfk-Aotwgmhgqac-Dexqracdpb-Rycpl-Mir stions.htmlTo learn more about the COVID-19 vaccine, we invite you to visit the CDC website for a list of frequently asked questions. https://www.cdc.gov/coronavirus/2019-ncov/vaccines/faq.html [facility] Patient Portal Access Instructions: Stay connected with your healthcare team and access your personal medical information anytime with the [employer] Patient Portal. If you would like a full copy of your medical records please contact the [facility] Medical Records Department Wednesday through Wednesday between 8a.m. and 4:30p.m. Please follow the directions below to access the portal: 1.Access the email account you provided upon registration to the hospital.2.Look for an invitation email from [facility].3.Open the email and access the invitation link: Accept Invitation to [employer]4.Fill in the required alejandro to create your account. Sign into www.Chinese Wh[employer] with your username and password that you [...] you will allow to register on the [employer] Patient Portal for access to your information. You can also access the [facility] Patient Portal on the Angry Citizen angelica. Simply click on Health Records under Kensho and then click on the [employer]rell logo. [...] Call your local pharmacy or go to http://[email or web address] [email or web address]/[email or web address] to find one close to you.3.Make use of household items: Use cat litter or old coffee grounds to dispose medications if other options arenot available. Mix your drugs with these household products, seal them in an airtight container andthrow it into the garbage. Call [facility]: [phone] to be sure your drugs can be [...] aware that I should contact my doctor. Patient/Paper Baler Signature: Date/Time: Relationship to Patient: Witness Name/Signature: Date/Time: [facility]10-21-2024 Note ORIGINAL HISTORY: Pain COMPARISON: No FINDINGS: [...] Sign Date: 11/29/2023 11:51:51 AM Ordering Provider: [facility]03-06-2024 Note ORIGINAL EXAMINATION: CT OF THE [...] Date: 04/14/2023 10:35:22 AM Ordering Provider: MAHAD [facility]04-26-2023 Miscellaneous Notes* Telephone Encounter - Brenton Jennings RN - 06/03/2022 11:26 AM EDT Received a request from [facility] for all of Ct's left breast cancer treatment medical records. Faxed the request to medical records on [facility], fax confirmation sheet received. Brenton Jennings RN documented [facility] Note ORIGINAL EXAMINATION: ULTRASOUND OF THE KIDNEYS [...] 04/15/2022 10:15:33 AM Ordering Provider: LARRY THOMAS [facility]03-08-2023 Note ORIGINAL EXAMINATION: ULTRASOUND OF THE KIDNEYS [...] Date: 04/15/2022 10:15:33 AM Ordering Provider: [facility]02-28-2023 NoteHNO ID: [id number] Author: Paula Alaniz MD Service: ? Author [...] needle core breast biopsies on 03/23/2022 at [facility]. Findings of fat necrosis, inflammation and [...] cancer Kidney Disease Sister Heart disease Brother [place] The review of systems data was entered [...] skin c (more content not included)... [facility] History of Present illness Narrative* Paula [...] needle core breast biopsies on 03/23/2022 at [facility]. Findings of fat necrosis, inflammation and [...] cancer Kidney Disease Sister Heart disease Brother [place] The review of systems data was entered [...] her studies and testing were done at [facility], I have recommended that she proceed with her evaluation/treatment there. The breast radiologists there have recommended wire localization lumpectomy of the left breast. I have told her that I could offer her the same but it would be at [facility]. She states thatshe would prefer [facility] as it is closer to home. [...] Low Paula Alaniz MD documented in this [facility]Fair[facility]02-27-2023 Nurse Note* Mini Brooke, MATILDE - 04/06/2022 [...] ago Mini Brooke LPN documented in this [facility]Fair[facility]12-15-2022 Note ORIGINAL FROM: [place] [address] PROCEDURE FOR: CT D[place] [address] [place] [phone] Home: PID#: [id number] Exam#: [id number] : 1940 Age: 81 TO: ALANNA WRIGHT DO [facility] [place] [address] Fax: NO FAX EXAMINATION: ULTRASOUND OF THE [...] Date: 01/22/2022 8:42:04 AM Ordering Provider: ALANNA RWIGHT CLINICAL: MAMMOGRAPHIC DENSITY LEFT BREAST. Wrapper Caser: JOSIE RUIZ RT(R) RDMS letter sent: Biopsy Recommended BI-RADS 4 and 5 Ultrasound BI-RADS: 4 Suspicious for malignancy [facility]12-15-2022 Note ORIGINAL FROM: [place] [id number] [place] [address] PROCEDURE FOR: CTSophia DALTON [address] [place] [phone] Home: PID#: [id number] Exam#: [id number] : 1940 Age: 81 TO: ALANNA WRIGHT DO [facility] [place] [address] Fax: NO FAX EXAMINATION: ULTRASOUND OF THE [...] by: Herminia Sandhu Preliminary Report By: Herminia Sanhdu Electronically signed By Herminia Sandhu Dictated Date: 01/22/2022 8:34:01 AM Prelim Date: 01/22/2022 8:42:04 AM Sign Date: 01/22/2022 8:42:04 AM Ordering Provider: ALANNA WRIGHT CLINICAL: MAMMOGRAPHIC DENSITY LEFT BREAST. Wrapper Caser: JOSIE RUIZ RT(R) RDMS letter sent: Biopsy Recommended BI-RADS 4 and 5 Ultrasound BI-RADS: 4 [facility] Hospital Discharge instructions Patient Education 12/25/2021 17:00:50 Dizziness, Uncertain Cause Dizziness (Uncertain Cause) Dizziness is a common symptom. It may be described as lightheadedness, spinning, or feeling like you are going to faint. Dizziness can have many causes. Be sure to tell the healthcare provider about: All medicines you take, including prescription, eyxb-dsv-xxkxeqk, herbs, and supplements Any other symptoms you [...] Chest, arm, neck, back, or jaw pain 6315-4147 [employer]. [address] [place] [address], [place] [address]. All rights reserved. This information is not [...] medicine was given, you may use an zbzm-wph-gaifsml product made for clearingearwax (such as Debrox or Murine Earwax Drops). These contain carbamide peroxide and are available fide-dqm-mznimzl. Lie down with the blocked ear facing [...] ear Headache, neck pain or stiff neck 5822-3421 [employer]. [address] [place] [address]. All rights reserved. This information is not intended as a substitute for professional medical care. Always follow yourhealthcare professional's instructions. Follow Up Care 12/25/2021 15:48:16 With:ALANNA WRIGHT DO Address: [address] [place] [address] [place] [phone] When:2-4 days [facility] 11-17-2022 Note Discharge Instructions Thank you for allowing [facility] to assist you with your healthcare needs. [...] WRIGHT DO When Within 2-4 days Where: [address] [place] [phone] Allergies NKA Medications Please ask your primary [...] about: All medicines you take, including prescription, lexd-evc-korwukx, herbs, and supplements Any other symptoms you [...] Chest, arm, neck, back, or jaw pain 3169-9878 [employer]. [address] [place] [address]. All rights reserved. This information is not [...] medicine was given, you may use an nrci-knu-mqtihlx product made for clearingearwax (such as Debrox or Murine Earwax Drops). These contain carbamide peroxide and are available qrxv-aup-ocmmczi. Lie down with the blocked ear facing [...] ear Headache, neck pain or stiff neck 0779-7152 [employer]. [address] [place] [address], [place] [address]. All rights reserved. This information is not intended as a substitute for professional medical care. Always follow yourhealthcare professional's instructions. Additional Information VACCINATE! IT SAVES LIVES! Members of the community who have not yet received the COVID-19 vaccine and would like to receive it can visit one of [facility] vaccine clinics. There are many vaccine clinic locations within the [facility]. For locations and available times, please visit www.gettheshot.coronavirus.[place].org. It is important to note that some COVID mobile vaccine clinics are held outdoors and may be canceled in rainy orstormy conditions. To learn more about pediatric vaccinations (ages 5-11), we invite you to visit the [facility] webpage. https://www.[facility].org/pages/6158-Rveyo-Pztkupnajio-Onemgcpqem-Cqxyy-Bye stions.htmlTo learn more about the COVID-19 vaccine, we invite you to visit the [facility] website for a list of frequently asked questions. https://jerrell.org/assets/Krrjfvfa-uuz-Rxbjarxx/fjwsx-Vspevmx-Igftuwkhox _Asked-Questions.pdf [facility] Patient Portal Access Instructions: Stay connected with your healthcare team and access your personal medical information anytime with the [facility] Patient Portal. If you would like a full copy of your medical records please contact the [facility] Medical Records Department Wednesday through Wednesday between 8a.m. and 4:30p.m. Please follow the directions below to access the portal: 1.Access the email account you provided upon registration to the [facility].2.Look for an invitation email from [facility].3.Open the email and access the invitation link: Accept Invitation to [facility]4.Fill in the required alejandro to create your account. Sign into www.jerrellAsia [employer] with your username and password that you [...] you will allow to register on the [facility] Patient Portal for access to your information. You can also access the [employer] Patient Portal on the MyNextRun. Simply click on Health Records under AppfricaData and then click on the Jerrell logo. [...] Call your local pharmacy or go to http://bit.BombBomb/0I2Og8v to find one close to you.3.Make use of household items: Use cat litter or old coffee grounds to dispose medications if other options arenot available. Mix your drugs with these household products, seal them in an airtight container andthrow it into the garbage. Call [facility]: [phone] to be sure your drugs can be [...] aware that I should contact my doctor. Patient/Paper Baler Signature: Date/Time: Relationship to Patient: Witness Name/Signature: Date/Time: [facility] Jerrell [id number] Hospital Discharge instructions Patient Education 12/06/2021 14:31:46 Dizziness, Intf-xv-Juem Dizziness Dizziness is a common problem. It [...] balance is fine. 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 Take baqr-wxo-nmcyvmr and prescription medicines only as told by [...] 01/14/2012 Document Revised: 01/28/2018 Document Reviewed: 02/11/2017 [employer] Patient Education 2020 [employer] 12/06/2021 14:31:38 Fall Prevention and Home Safety, Fvnk-qx-Suoe Fall Prevention and Home Safety Falls cause [...] Document Reviewed: 04/26/2012 ExitCare Patient Information 2015 [employer]. This information is not intended to replace advicegiven to you by your health care provider. Make sure you discuss any questions you have with your health care provider. Follow Up Care 12/03/2021 14:18:30 With:[facility], [phone] Address:Unknown When:1-2 days With:ALANNA WRIGHT DO Address: [address] [place] [address]- When:1-2 days Comments:Please call the office to schedule a follow up appointment [facility] 10-29-2022 Note Discharge Instructions Thank you for allowing [facility] to assist you with your healthcare needs. [...] Screening Bilateral w/ Fer 12/12/2021 03:00 PM [facility] Follow Up Appointments Follow Up with [facility], [phone] When Within 1-2 days Follow Up with ALANNA WRIGHT DO When Within 1-2 days Why: Please call the office to schedule a follow up appointment Where: [facility] [place] [address]- The Following Activity and Diet Have Been [...] balance is fine. 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 Take onzt-pgk-htoddaz and prescription medicines only as told by [...] 01/14/2012 Document Revised: 01/28/2018 Document Reviewed: 02/11/2017 [employer] Patient Education 2020 [employer] Fall Prevention and Home Safety Falls [...] Document Reviewed: 04/26/2012 ExitCare Patient Information 2015 [employer] [facility]. This information is not intended to replace advicegiven to you by your health care provider. Make sure you discuss any questions you have with your health care provider. Additional Information VACCINATE! IT SAVES LIVES! Members of the community who have not yet received the COVID-19 vaccine and would like to receive it can visit one of [facility] vaccine clinics. There are many vaccine clinic locations within the [facility]. For locations and available times, please visit https://gettheshot.coronavirus.[place].gov/. It is important to note that some COVID mobile vaccine clinics are held outdoors and may be canceled in rainy or stormy conditions. To learn more about pediatric vaccinations (ages 5-11), we invite you to visit the [facility] webpage. https://www.[facility].org/pages/2795-Hhboe-Tktzloywgfg-Jgslmhmqgf-Uhtju-Qiz stions.htmlTo learn more about the COVID-19 vaccine, we invite you to visit the [employer] website for a list of frequently asked questions. https://[employer].statusboom/assets/Daunapgz-ypp-Pusjkncq/dwiex-Veudosd-Urmhhrzgfq _Asked-Questions.pdf [facility] Patient Portal Access Instructions: Stay connected with your healthcare team and access your personal medical information anytime with the [employer] Patient Portal.If you would like a full copy of your medical records, please contact the [facility] Medical Records Department, Wednesday through Wednesday between 8a.m. and 4:30p.m. Please follow the directions below to access the portal: 1.Access the email account you provided upon registration to the [facility].2.Look for an invitation email from [facility].3.Open the email and access the invitation link: Accept Invitation to [facility]4.Fill in the required alejandro to create your account. Sign into www.jerrellAsia [employer] with your username and password that you [...] you will allow to register on the [employer] Patient Portal for access to your information. You can also access the [employer] Patient Portal on the MyNextRun. Simply click on Health Records under Kensho and then click on the [employer] logo. HOW TO SAFELY DISPOSE OF PRESCRIPTION [...] Call your local pharmacy or go to http://Silent Power.BombBomb/0X9Cv7l to find one close to you.3.Make use of household items: Use cat litter or old coffee grounds to dispose medications if other options arenot available. Mix your drugs with these household products, seal them in an airtight container andthrow it into the garbage. Call [facility]: [phone] to be sure your drugs can be [...] CHART COPY. Signatures Patient Education Materials Dizziness, Kcmx-eo-Sfys Fall Prevention and Home Safety, Ijun-cx-Ggcd Medication Leaflets My discharge plan and instructions have been reviewed and explained to me and I,CT DALTON understand my current condition and have read and understand these discharge instructions. I have received a written copy of the plan/instructions. If I have questions, I am aware that I should contact my doctor. Patient/Paper Baler Signature: Date/Time: Relationship to Patient: Witness Name/Signature: Date/Time: [facility]-1113 Note Discharge Instructions Thank you for allowing [facility] to assist you with your healthcare needs. [...] Bilateral w/ Fer 12/12/2021 03:00 PM EDT [facility] Follow Up Appointments Follow Up with [facility], [phone] When Within 1-2 days Follow Up with ALANNA WRIGHT DO When Within 1-2 days Why: Please call the office to schedule a follow up appointment Where: [address] [place] [address] [place] [address]- The Following Activity and Diet Have Been [...] to receive it can visit one of [facility] vaccine clinics. There are many vaccine clinic locations within the [facility]. For locations and available times, please visit https://gettheshot.coronavirus.[place].gov/. It is important to note that some COVID mobile vaccine clinics are held outdoors and may be canceled in rainy or stormy conditions. To learn more about pediatric vaccinations (ages 5-11), we invite you to visit the [facility] webpage. https://www.[facility].org/pages/7429-Zonrf-Jouauxzfrik-Macopuoepy-Dmzkv-Icg stions.htmlTo learn more about the COVID-19 vaccine, we invite you to visit the [facility] website for a list of frequently asked questions. https://jerrell.statusboom/assets/Cqdvtutv-mvy-Kkwuprci/cjjzx-Tqlyuyz-Npvgesbemk _Asked-Questions.pdf [facility] Patient Portal Access Instructions: Stay connected with your healthcare team and access your personal medical information anytime with the [facility] Patient Portal.If you would like a full copy of your medical records, please contact the [facility] Medical Records Department, Wednesday through Wednesday between 8a.m. and 4:30p.m. Please follow the directions below to access the portal: 1.Access the email account you provided upon registration to the hospital.2.Look for an invitation email from [facility].3.Open the email and access the invitation link: Accept Invitation to [employer]4.Fill in the required alejandro to create your account. Sign into www.jer[employer]Asia [employer] with your username and password that you [...] you will allow to register on the [employer] Patient Portal for access to your information. You can also access the [employer] Patient Portal on the MyNextRun. Simply click on Health Records under Kensho and then click on the [employer] logo. HOW TO SAFELY DISPOSE OF PRESCRIPTION [...] Call your local pharmacy or go to http://Silent Power.BombBomb/1O7Jr7d to find one close to you.3.Make use of household items: Use cat litter or old coffee grounds to dispose medications if other options arenot available. Mix your drugs with these household products, seal them in an airtight container andthrow it into the garbage. Call [facility]: [phone] to be sure your drugs can be [...] aware that I should contact my doctor. Patient/Paper Baler Signature: Date/Time: Relationship to Patient: Witness Name/Signature: Date/Time: [facility]blnmzlj85-36-4901 Discharge summary Date of Service 12/06/21 Discharge Diagnosis 1. Unsteady gait (R26.81 - ICD-10-CM) 2. Dizziness (R42 - ICD-10-CM) Dizziness ([id number] - PNED) HTN - Hypertension ([id number] - PNED) Additional Orders: Ordered: atenolol 25 mg oral tablet,Dose : 25 mg = 1 tab(s), Oral, qDay, # 30 tab(s), 0 Refill(s), Pharmacy: [facility]/pharmacy #[id number], 160, cm, 12/03/21 21:46:00 EDT, Height [...] CT head, chest x-ray, MRI brain, TTE, [place]- [place] unremarkable.ECG showed LBBB, no prior EKG [...] 100 mg daily, hydralazine 25 mg daily, tkyaszhbiuqmhdfatsk11 mg daily, lisinopril 20 mg daily. In [...] schedule a follow up appointment Where: [address] [place] [address]- Follow Up Appointments No qualifying data available. Follow Up Labs/Studies Discharge Labs No Follow-up Labs Discharge Studies No Follow-up Studies Discharge Diet No qualifying data available. Discharge Activity No qualifying data available. Readmission Risk/Palliative Score No qualifying data available. Digitally Signed by CODY RILEY MD on 12/06/2021 11:43 AM [facility] HospitalEkajvrht77-73-9131 Discharge summary Date of Service 12/06/21 Discharge Diagnosis 1. Unsteady gait (R26.81 - ICD-10-CM) 2. Dizziness (R42 - ICD-10-CM) Dizziness ([id number] - PNED) HTN - Hypertension ([id number] - PNED) Additional Orders: Ordered: atenolol 25 mg oral tablet,Dose : 25 mg = 1 tab(s), Oral, qDay, # 30 tab(s), 0 Refill(s), Pharmacy: [facility]/pharmacy #[id number], 160, cm, 12/03/21 21:46:00 EDT, Height [...] CT head, chest x-ray, MRI brain, TTE, [place]- [place] unremarkable.ECG showed LBBB, no prior EKG [...] 100 mg daily, hydralazine 25 mg daily, vfpabfaqleersevmfra67 mg daily, lisinopril 20 mg daily. In [...] to schedule a follow up appointment Where: [address] [place] [address] [place] [address]- Follow Up Appointments No qualifying data available. Follow Up Labs/Studies Discharge Labs No Follow-up Labs Discharge Studies No Follow-up Studies Discharge Diet No qualifying data available. Discharge Activity No qualifying data available. Readmission Risk/Palliative Score No qualifying data available. Digitally Signed by CODY RILEY MD on 12/06/2021 11:43 AM [facility] HospitalErqgsqwu21-40-6896 Note Chief Complaint Transition plan Transitional Action Points Currently is transition over to [facility] [place] is able to accept Patient echo explained [...] She was excepted by [facility] [place], will require COVID screen prior to transfer. 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 I Magdalena Ashley LMSW, personally performed the services described in this documentation, as described by Gladys Betancourt LPN in my presence and it is both accurate and complete. This document is transcribed using voice recognition software may contain typographical errors. Digitally Signed by MAGDALENA ASHLEY on 12/06/2021 09:45 AM [facility] HospitalQexwnkee78-72-0548 Note ORIGINAL EXAMINATION: TWO XRAY VIEWS OF [...] 12/06/2021 12:06:38 AM Ordering Provider: FRIEDA HOLLAND [facility] HospitalYqluhhzh69-75-6375 Note Date of Service 12/05/2021 Subjective 81-year-old [...] ED documented asnegative. Patient was transfer from [place] to [facility] for further cardiovascular work-up. Orthostatics performed and [...] Zara no answer, called patient's son Ang [phone] Who states that patient's mental status has [...] FRIEDA HOLLAND MD on 12/05/2021 06:41 PM [facility] HospitalHuwlrbiz94-75-4662 Note ORIGINAL EXAMINATION: TWO XRAY VIEWS OF [...] Date: 12/06/2021 12:06:38 AM Ordering Provider: FRIEDA [facility]10-28-2022 Note ORIGINAL EXAMINATION: MR Brain with and [...] pathology. 2. Moderate parenchymal volume loss and mgey-se-lnxvoguo chronic microvascular white matter ischemic disease. Interpreted by: Alanna Chin MD Preliminary Report By: Alanna Chin MD Electronically signed By Alanna Chin MD Dictated Date: 12/05/2021 1:36:40 PM Prelim Date: 12/05/2021 1:40:15 PM Sign Date: 12/05/2021 1:40:15 PM Ordering Provider: ANA WILSON [facility] HospitalXiipgmzt00-48-8942 Note ORIGINAL EXAMINATION: MR Brain with and [...] pathology. 2. Moderate parenchymal volume loss and jktk-ta-gwkelbec chronic microvascular white matter ischemic disease. Interpreted by: Alanna Chin MD Preliminary Report By: Alanna Chin MD Electronically signed By Alanna Chin MD Dictated Date: 12/05/2021 1:36:40 PM Prelim Date: 12/05/2021 1:40:15 PM Sign Date: 12/05/2021 1:40:15 PM Ordering Provider: [facility]10-28-2022 Note Date 12/05/2021 Chief complaint Transition plan. [...] Physical therapy notes on 12/04 recommending SNF. 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 Digitally Signed by MAGDALENA ASHLEY on 12/05/2021 06:42 PM [facility] HospitalEyshcfkd04-65-4277 Note Date of Service 12/04/2021` Chief Complaint [...] ED documented asnegative. Patient was transfer from [place] to [facility] for further cardiovascular work-up. Orthostatics performed and negative. On review of telemetry patient with episodes of bradycardia will decre ase atenolol. Patient ordered for MRI TTE and carotid duplex. PT/OT evaluation pending. Patient seen and examined this morning Patient does appear to have advanced dementia She does know that she is in [place] but speaks in a roundabout way about [...] FRIEDA HOLLAND MD on 12/04/2021 03:40 PM [facility] HospitalGfqnomur82-82-4116 Note Chief Complaint Transition Plan. 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 Ari Ashley NP, personally performed the services described in this documentation, as described by Jose Juan CARCAMO in my presence and it is both accurate and complete. This document transcribed using voice recognition software may contain typographical errors. Digitally Signed by MAGDALENA ASHLEY on 12/04/2021 02:59 PM [facility] HospitalNhpourlg84-61-1032 History and physical note [facility] Hospitalist History and Physical Date of Admission: 12/03/2021 Chief complaint: Dizziness History of present illness: History is taken from talking with the patient. Patient was accepted asa transfer from [place] emergency department by my colleague. 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 Family history: Mother: High blood [...] Rate18(DEC 03 21:30)16(DEC 03 14:53)20(DEC 03 14:26) KZS038(DEC 03 21:30)136(DEC 03 21:30)H 187(DEC 03 16:20) [...] Appearance (POC): Clear (12/03/21 16:12:00) Urine Specific [place] (POC): <=1.005 Abnormal (12/03/21 16:12:00) Urine Glucose [...] Patient was accepted as a transfer from [facility] emergency department by my colleague on [...] ANA WILSON MD on 12/03/2021 09:55 PM [facility] HospitalCnvjydln23-82-4236 Note ORIGINAL EXAMINATION: CT OF THE HEAD [...] Date: 12/03/2021 4:02:30 PM Ordering Provider: BLANCA [facility]10-26-2022 Note ORIGINAL EXAMINATION: CT OF THE HEAD [...] Date: 12/03/2021 4:02:30 PM Ordering Provider: BLANCA [facility]10-26-2022 Evaluation + Plan noteExtracted from: Title:Clinical Document Author:ANA WILSON MD Date:12/03/21 [facility] History and Physical Date of Admission: 12/03/2021 Chief complaint: Dizziness History of present illness: History is taken from talking with the patient. Patient was accepted as a transfer from [place] emergency department by my colleague. 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 Family history: Mother: High blood [...] Rate18(DEC 03 21:30)16(DEC 03 14:53)20(DEC 03 14:26) LWN552(DEC 03 21:30)136(DEC 03 21:30)H 187(DEC 03 16:20) [...] Appearance (POC): Clear (12/03/21 16:12:00) Urine Specific [place] (POC): <=1.005 Abnormal (12/03/21 16:12:00) Urine Glucose [...] Patient was accepted as a transfer from [facility] emergency department by my colleague on [...] MA Mammo Screening Bilateral w/ Fer 12/12/21 [facility] Discharge summary Author Jean Claude Harry [facility] Note Date/Time July 24, 2024 3:52 am [facility] Medical Records Department [address] [place] [address] Emergency Department Summary 07/24/24 MR#: [id number] Acct: [id number] Name: CT DALTON Rep #:[id number] : 1940 83 From: Jean Claude Harry [...] mg PO DAILY 04/20/17 04/27/17 08:00 History esorgkunopmk-Rn-xted-minerals 1 ea PO DAILY 04/20/17 U nknown [...] range of motion. 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 Neurologically she is awake and [...] Right hip moderate degenerative changes. Reading Location: [place] [address] Right hip and pelvis x-ray, 3 views, [...] obviously lying in bed. Tylenol for pain. Cutler as needed for pain also. Print Language: Swazi Disposition Disposition: Home, Self Care What to do if you have Problems For any increased pain, shortness of breath, bleeding, nausea or vomiting, chestpain, or any unexpected problems, contact your Primary Care Provider. Call [facility] ([phone]) or report to the closest Emergency Room. Call 911 if necessary. 07/24/242 <Electronically signed by Jean Claude Harry MD> Cosigner Signature (if applicable): CC: Dr. Jairon Medel MD ~ Signed [facility] Work Phone: Evaluation + Plan note Future Appointments Appointment Date:05/05/2021 09:00:00 AM Scheduled Provider:ALANNA WRIGHT DO Location:[facility] Appointment Type:[facility] Evaluation + Plan note Future Appointments Appointment Date:11/06/2021 08:30:00 AM Scheduled Provider:ALANNA WRIGHT DO Location:[facility] [place] Appointment Type:PC Wellness Medicare with Labs Future Scheduled Tests Radiology* XR Humerus Minimum 2 Views Right 05/05/21 [facility] evaluation + Plan note Future Appointments Appointment Date:01/15/2022 02:00:00 PM Scheduled Provider: Location:[facility] Appointment Type:MA Mammogram Screening Bilateral w/ Fer Appointment Date:02/25/2022 10:00:00 AM Scheduled Provider:LARRY THOMAS DO Location:[facility] Appointment Type:PC LMSW Appointment Date:03/13/2022 10:30:00 AM Scheduled Provider:ALANNA WRIGHT DO Location:[facility] [place] Appointment Type:PC OV Future Scheduled Tests Radiology* MA Mammo Screening Bilateral w/ Fer 01/15/22 [facility] evaluation + Plan note Future Appointments Appointment Date:02/25/2022 10:00:00 AM Scheduled Provider:LARRY THOMAS DO Location:[facility] Appointment Type:PC LMSW Appointment Date:03/13/2022 10:30:00 AM Scheduled Provider:ALANNA WRIGHT DO Location:[facility] [place] Appointment Type:PC OV Future Scheduled Tests Radiology* US Biopsy Breast Left 1st Lesion 01/22/22 [facility] evaluation + Plan note Future Appointments Appointment Date:03/05/2022 10:00:00 AM Scheduled Provider:LARRY THOMAS DO Location:[facility] Appointment Type:PC LMSW Appointment Date:03/13/2022 10:30:00 AM Scheduled Provider:ALANNA WRIGHT DO Location:[facility] [place] Appointment Type:PC OV Appointment Date:03/23/2022 01:00:00 PM Scheduled Provider: Location:[facility] Appointment Type:US Biopsy Breast Left 1st Lesion Future Scheduled Tests Radiology* US Biopsy Breast Left 1st Lesion 03/23/22 [facility] evaluation + Plan note Future [...] 1st Lesion 03/23/22 * US Renal 03/09/22 [facility] Evaluation + Plan note Future Appointments Appointment Date:04/16/2022 04:30:00 PM Scheduled Provider:LARRY THOMAS DO Location:[facility] Appointment Type:PC OV Future Scheduled Tests Laboratory* Hepatic Function Panel 04/13/22 Radiology* US Renal 03/09/22 [facility] Evaluation + Plan note Future Appointments Appointment Date:04/15/2022 07:30:00 AM Scheduled Provider: Location:[facility] Appointment Type:US Renal Appointment Date:04/16/2022 04:30:00 PM Scheduled Provider:LARRY THOMAS DO Location:[facility] Appointment Type:PC OV Appointment Date:05/28/2022 10:00:00 AM Scheduled Provider:ANISA GOMEZ MD Location:[facility] Appointment Type:LIYAH LMSW Future Scheduled Tests Radiology* US Renal 04/15/22 [facility] Evaluation + Plan note Future Appointments Appointment Date:04/16/2022 04:30:00 PM Scheduled Provider:LARRY THOMAS DO Location:[facility] Appointment Type:PC OV Appointment Date:05/28/2022 10:00:00 AM Scheduled Provider:ANISA GOMEZ MD Location:[facility] Appointment Type:BS LMSW [facility] Evaluation + Plan note Future Appointments Appointment [...] Date:03/16/2023 10:00:00 AM Scheduled Provider:LARRY THOMAS DO Location:[facility] Appointment Type:PC OV Future Scheduled Tests Radiology* BD Bone Density DEXA Axial Skeleton 12/14/22 [facility] Evaluation + Plan note Future Appointments Appointment Date:06/15/2023 10:30:00 AM Scheduled Provider:LARRY THOMAS DO Location:[facility] Appointment Type:PC OV Diagnostic Tests Pending * Methylmalonic Acid, Serum 04/07/23 [facility] Evaluation + Plan note Future Appointments Appointment Date:06/15/2023 10:30:00 AM Scheduled Provider:LARRY THOMAS DO Location:[facility] Appointment Type:PC OV [facility] Evaluation + Plan note Future Appointments Appointment Date:12/15/2023 10:00:00 AM Scheduled Provider:LARRY THOMAS DO Location:[facility] Appointment Type:PC OV [facility] evaluation + Plan note Future Appointments Appointment Date:12/29/2023 01:30:00 PM Scheduled Provider:LARRY THOMAS DO Location:[facility] Appointment Type:PC OV Diagnostic Tests Pending * Vitamin B12 Level 12/15/23 * Folate Level 12/15/23 Future Scheduled Tests Laboratory* Calcium Level Ionized 12/15/23 * Urine Culture 12/15/23 Radiology* XR Spine Lumbar W/Obliques 4 Views 12/15/23 [facility] evaluation + Plan note Future Appointments Appointment Date:12/29/2023 01:30:00 PM Scheduled Provider:LARRY THOMAS DO Location:[facility] Appointment Type:PC OV Future Scheduled Tests Laboratory* Calcium Level Ionized 12/15/23 Radiology* XR Chest 2 Views (PA & Lateral) 12/19/23 * XR Spine Lumbar W/Obliques 4 Views 12/15/23 [facility] Evaluation + Plan note Future Appointments Appointment Date:12/29/2023 01:30:00 PM Scheduled Provider:LARRY THOMAS DO Location:[facility] Appointment Type:PC OV Future Scheduled Tests Laboratory* Calcium Level Ionized 12/15/23 [facility] Evaluation + Plan note Future Appointments Appointment Date:02/16/2024 09:30:00 AM Scheduled Provider:LARRY THOMAS DO Location:[facility] Appointment Type:PC OV Future Scheduled Tests Radiology* US Bladder 12/29/23 [facility] Evaluation + Plan note Future Appointments Appointment Date:02/16/2024 09:30:00 AM Scheduled Provider:LARRY THOMAS DO Location:[facility] Appointment Type:PC OV [facility] Evaluation note* Diagnosis Abnormal ultrasound of breast Other (abnormal) findings on radiological examination of breast History of left breast cancer documented in this encounter [facility] noteNo assessment information availableWDelaware [facility] Work Phone: Hospital course Narrative No data available for this section [facility] Discharge instructions No data available for this section [facility] Discharge instructions Additional Instructions She has a superior pubic ramus fracture which is a pelvis fracture. These are not treated with surgery. They generally heal over weeks to months. She can do activity as tolerated. She may walk or be in a wheelchair or obviously lying in bed. Tylenol for pain. Cutler as needed for pain also.[facility] Work Phone: Progress note No data available for this section [facility] Reason for referral (narrative)No reason for referral information availableWDelaware County Hospital Work Phone: Chief Complaint Chief Complaint [...] Visit Chief Complaint Admit Date ADMISSION EXAM LMSW February 24, 2024 3 :20pm [facility] February 28, 2024 5:00am ADMISSION EXAM February 29, 2024 1 1:54am [facility] March 27 5:00am LABWORK April 03, 2024 5:00am NEW CONCERN April 03, 2024 2:22pm LABWORK May 01, 2024 5:0 0am Chief Complaint Admit Date ADMISSION EXAM LMSW February 24, 2024 3 :20pm [facility] February 28, 2024 5:00am ADMISSION EXAM February 29, 2024 1 1:54am [facility] March 27 5:00am LABWORK April 03, 2024 5:00am NEW CONCERN April 03, 2024 2:22pm MONTHLY EXAM April 11, 2024 5:02 pm NEW CONCERN April 26, 2024 6:3 9pm LABWORK May 01, 2024 5:0 0am [facility] May 15, 2024 4: 00am Chief Complaint Admit Date ADMISSION EXAM LMSW February 24, 2024 3 :20pm [facility] February 28, 2024 5:00am ADMISSION EXAM February 29, 2024 1 1:54am [facility] March 27 5:00am LABWORK April 03, 2024 5:00am NEW CONCERN April 03, 2024 2:22pm MONTHLY EXAM April 11, 2024 5:02 pm NEW CONCERN April 26, 2024 6:3 9pm LABWORK May 01, 2024 5:0 0am [facility] May 15, 2024 4: 00am LABWORK May 29, 2024 5:0 0am Chief Complaint Admit Date ADMISSION EXAM LMSW February 24, 2024 3 :20pm [facility] February 28, 2024 5:00am ADMISSION EXAM February 29, 2024 1 1:54am [facility] March 27 5:00am LABWORK April 03, 2024 5:00am NEW CONCERN April 03, 2024 2:22pm MONTHLY EXAM April 11, 2024 5:02 pm NEW CONCERN April 26, 2024 6:3 9pm LABWORK May 01, 2024 5:0 0am [facility] May 15, 2024 4: 00am [facility] May 24, 2024 5 :00am LABWORK May 29, 2024 5:0 0am Chief Complaint Admit Date [facility] March 27 5:00am LABWORK April 03, 2024 5:00am NEW CONCERN April 03, 2024 2:22pm MONTHLY EXAM April 11, 2024 5:02 pm NEW CONCERN April 26, 2024 6:3 9pm LABWORK May 01, 2024 5:0 0am [facility] May 15, 2024 4: 00am [facility] May 24, 2024 5 :00am LABWORK May 29, 2024 5:0 0am [facility] June 26, 2024 4:0 0am fall July 24, 2024 1:23 am Chief Complaint Admit Date [facility] March 27 5:00am LABWORK April 03, 2024 5:00am NEW CONCERN April 03, 2024 2:22pm MONTHLY EXAM April 11, 2024 5:02 pm NEW CONCERN April 26, 2024 6:3 9pm LABWORK May 01, 2024 5:0 0am [facility] May 15, 2024 4: 00am [facility] May 24, 2024 5 :00am LABWORK May 29, 2024 5:0 0am [facility] June 26, 2024 4:0 0am Chief Complaint Admit Date LABWORK April 03, 2024 5:00am NEW CONCERN April 03, 2024 2:22pm MONTHLY EXAM April 11, 2024 5:02 pm NEW CONCERN April 26, 2024 6:3 9pm LABWORK May 01, 2024 5:0 0am Monthly Exam May 12, 2024 2:03 pm [facility] May 15, 2024 4: 00am [facility] May 24, 2024 5 :00am LABWORK May 29, 2024 5:0 0am [facility] June 26, 2024 4:0 0am fall July 24, 2024 1:23 am Chief Complaint Admit Date LABWORK April 03, 2024 5:00am NEW CONCERN April 03, 2024 2:22pm MONTHLY EXAM April 11, 2024 5:02 pm NEW CONCERN April 26, 2024 6:3 9pm LABWORK May 01, 2024 5:0 0am Monthly Exam May 12, 2024 2:03 pm [facility] May 15, 2024 4: 00am New Concern May 23, 2024 5:0 2pm [facility] May 24, 2024 5 :00am LABWORK May 29, 2024 5:0 0am [facility] June 26, 2024 4:0 0am fall July 24, 2024 1:23 am Chief Complaint Admit Date NEW CONCERN April 26, 2024 6:3 9pm LABWORK May 01, 2024 5:0 0am Monthly Exam May 12, 2024 2:03 pm [facility] May 15, 2024 4: 00am New Concern May 23, 2024 5:0 2pm [facility] May 24, 2024 5 :00am LABWORK May 29, 2024 5:0 0am [facility] June 26, 2024 4:0 0am MONTHLY EXAM June 27, 2024 4:00p m fall July 24, 2024 1:23 am Chief Complaint Admit Date LABWORK May 01, 2024 5:0 0am Monthly Exam May 12, 2024 2:03 pm [facility] May 15, 2024 4: 00am New Concern May 23, 2024 5:0 2pm [facility] May 24, 2024 5 :00am LABWORK May 29, 2024 5:0 0am [facility] June 26, 2024 4:0 0am MONTHLY EXAM June 27, 2024 4:00p m fall July 24, 2024 1:23 am NEW CONCERN July 24, 2024 2:45 pm LABWORK August 21, 2024 5:00 am Chief Complaint Admit Date [facility] May 24, 2024 5 :00am LABWORK May 29, 2024 5:0 0am [facility] June 26, 2024 4:0 0am MONTHLY EXAM June 27, 2024 4:00p m fall July 24, 2024 1:23 am NEW CONCERN July 24, 2024 2:45 pm Monthly Exam August 08, 2024 8:00p m LABWORK August 21, 2024 5:00 am LABWORK August 28, 2024 5:00 am Chief Complaint Admit Date fallJuly 24, 2024 1:23 am NEW CONCERN July 24, 2024 2:45 pm Monthly Exam August 08, 2024 8:00p m LABWORK August 21, 2024 5:00 am LABWORK August 28, 2024 5:00 am LABWORK September 18, 2024 5: 00am [facility] October 16, 2024 5:00am Additional Source Comments Reason for Visit (unrecogniz ed section and content) Reason For Visit Description Follow-up by complaint Preliminary reason f or visit data, not yet signed by the author as of lower back pain Reason Comments Consult Left breast consult Reason Comments Request for medical records INFORMATION SOURCE (unrecogn ized section and content) DATE CREATED AUTHOR 03/11/2018 [facility] DATE CREATED AUTHOR AUTHOR'S ORGANIZ ATION 06/04/2022 [facility] DATE CREATED AUTHOR AUTHOR'S ORGANIZ ATION 07/09/2023 [facility] DATE CREATED AUTHOR AUTHOR'S ORGANIZ ATION 02/24/2024 [facility] DATE CREATED AUTHOR AUTHOR'S ORGANIZ ATION 03/28/2024 [facility] DATE CREATED AUTHOR AUTHOR'S ORGANIZ ATION 11/01/2024 [facility] Care Team (unrecognized sect ion and content) Care Team Personnel Name: ALANNA WRIGHT DO Position: P4 Physician - Primary Care Member Role: Primary Care Physician Address: Address: [address] [place] [address]- Name: Venkata Alegria RN Position: ED RN Member Role: ED RN Name: BLANCA ARRIETA DO Position: P4 ED Physician II Member Role: ED Physician Address: Address: [address] [place] [address]- Care Team Related Persons Name: ZARA DALTON Address: Home [address], [place] [id number] [place] Care Team Personnel Name: ALANNA WRIGHT DO Position: P4 Physician - Primary Care Member Role: Primary Care Physician Address: Address: [address] [place], [place] [address] Name: Danette Busch RN Position: RN Member Role: RN Name: INES DENNIS MD Position: ED Physician Member Role: Attending Physician Address: Address: [facility] [address] [place] [address]- Care Team Related Persons Name: ZARA DALTON Address: Home [address], [place] [phone] [place] Care Team Personnel Name: ALANNA WRIGHT DO Position: P4 Physician - Primary Care Member Role: Primary Care Physician Address: Address: [address] [place] [address]- Care Team Related Persons Name: ZARA DALTON Address: Home [address], [place] [phone] [place] Care Team Personnel Name: LARRY THOMAS DO Position: P4 Physician - Primary Care Member Role: Primary Care Physician Address: Address: [address] [place] [address]- Care Team Related Persons Name: ZARA DALTON Address: Home [address], [place] [phone] [place] Care Team Personnel Name: LARRY THOMAS DO Position: P4 Physician - Primary Care Member Role: Primary Care Physician Address: Address: [address] [place] [address]- Care Team Related Persons Name: ZARA DALTON Address: Home [address], [place] [phone] [place] Care Team Personnel Name: LARRY THOMAS DO Position: P4 Physician - Primary Care Member Role: Primary Care Physician Address: Address: [address] [place] [address]- Care Team Related Persons Name: ZARA DALTON Address: Home [address], [place] [phone] [place] Care Team Personnel Name: LARRY THOMAS DO Position: P4 Physician - Primary Care Member Role: Primary Care Physician Address: Address: [address] [place] [address]- Care Team Related Persons Name: ZARA DALTON Address: Home [address], [place] [phone] [place] Care Team Personnel Name: LARRY THOMAS DO Position: P4 Physician - Primary Care Member Role: Primary Care Physician Address: Address: [address] [place] [address]- Care Team Related Persons Name: ZARA DALTON Address: Home [address], [place] [phone] [place] Source Comments (unrecognize d section and content) In the event this informatio n is protected by the Federal Confidentiality of Alcohol and Drug Abuse Patient Records regulations: The Federal rules restrict any use of the information to criminally investigate or prosecute any alcohol or drug abuse patient.[facility] Center[facility] the event this information is protected by the Federal Confidentiality of Alcohol and Drug Abuse Patient Records regulations: The Federal rules restrict any use of the information to criminally investigate or prosecute any alcohol or drug abuse patient.[facility] Care Teams (unrecognized sec tion and content) [...] April 03, 2024 End: April 03, 2024 GLORIA Kingston NP Attending Provider Active Start: April 03, 2024 [...] 26, 2024 End: April 26, 2024 Jane Tickton LMSW, LMSW-C Attending Provider Active Start: April 26, 2024 [...] July 24, 2024 End: July 24, 2024 Transmitter Operator Relationship Specialty Start Date End Date Larry Thomas, DO [address] [place] [address] PCP - General Family Medicine 03/30/22 Lachelle Cervantes MD, [address] [facility] [place], [place] [id number] Physician Radiation Oncology 05/11/17 Kesha Davidson RN Specialty Consultant Rn Oncology 07/28/17 Transmitter Operator Relationship Specialty Start Date End Date Larry Thomas, DO [address] [place] [address] PCP - General Family Medicine 03/30/22 Lachelle Cervantes MD, [address] [place] [phone] Physician Radiation Oncology 05/11/17 Kesha Davidson RN Specialty Consultant Rn Oncology 07/28/17 Team Status: Active Member Role Status Dates Dr. Warner Leos Jr., MD Family Provider Active Dr. Warner Leos Jr., MD Primary Care Provider Active Team Status: Inactive Member Role Status Dates Dr. Warner Leos Jr., MD Primary Care Provider Active Start: February 24, 2024 End: February 24, 2024 Jane Barth LMSW, LMSW-C Attending Provider Active Start: February 24, 2024 [...] 2024 End: May 12, 2024 Jane Barth LMSW, LMSW-C Attending Provider Active Start: May 12, 2024 End: May 12, 2024 Team Status: Inactive Member Role Status Dates Dr. Jairon Medel MD Primary Care Provider Active Start: May 23, 2024 End: May 23, 2024 Jane Barth LMSW, LMSW-C Attending Provider Active Start: May 23, 2024 End: May 23, 2024 Team Status: Active Member Role/Relationship Status Dates Dr. Jairon Medel MD Primary Care Provider Active Team Status: Inactive Member Role/Relationship Status Dates Dr. Warner Leos Jr., MD Primary Care Provider Active Start: April 26, 2024 End: April 26, 2024 Jane Barth LMSW, LMSW-C Attending Provider Active Start: April 26, 2024 [...] 2024 End: May 12, 2024 Jane Barth LMSW, LMSW-C Attending Provider Active Start: May 12, 2024 [...] 2024 End: May 23, 2024 Jane Barth LMSW, LMSW-C Attending Provider Active Start: May 23, 2024 [...] 2024 End: May 12, 2024 Jane Barth LMSW, LMSW-C Attending Provider Active Start: May 12, 2024 [...] 2024 End: May 23, 2024 Jane Barth LMSW, LMSW-C Attending Provider Active Start: May 23, 2024 [...] End: July 24, 2024 Dr. Jean Claude Haryr MD Attending Provider Active S tart: July 24, 2024 End: July 24, 2024 Dr. Jean Claude Harry MD Emergency Provider Active S tart: July 24, 2024 End: July 24, 2024 Team Status: Inactive Member Role/Relationship Status Dates Dr. Jairon Medel MD Primary Care Provider Active Start: July 24, 2024 End: July 24, 2024 Jane Barth LMSW, LMSW-C Attending Provider Active Start: July 24, 2024 [...] 2024 End: July 24, 2024 Jane Barth LMSW, LMSW-C Attending Provider Active Start: July 24, 2024 [...] Attending Provider Active Start: September 18, 2024 Team Status: Active Member Role/Relationship Status Dates Dr. Jairon Medel MD Primary care physician Activ e Team Status: Inactive Member Role/Relationship Status Dates Dr. Jairon Medel MD Primary care physician Activ e Start: July 24, 2024 End: July 24, 2024 Dr. Jean Claude Harry MD Attending physician Active Start: July 24, 2024 End: July 24, 2024 Dr. Jean Claude Harry MD Emergency [facility] Physician Active Start: July 24, 2024 End: July 24, 2024 Team Status: Inactive Member Role/Relationship Status Dates Dr. Jairon Medel MD Primary care physician Activ e Start: July 24, 2024 End: July 24, 2024 Jane Barth LMSW, LMSW-C Attending physician Active Start: July 24, 2024 End: July 24, 2024 Team Status: Inactive Member Role/Relationship Status Dates Dr. Jairon Medel MD Primary care physician Activ e Start: August 08, 2024 Dr. Julia Estrella MD Attending physician Active Start: August 08, 2024 Team Status: Inactive Member Role/Relationship Status Dates Dr. Jairon Medel MD Primary care physician Activ e Start: August 08, 2024 End: August 08, 2024 Dr. Jairon Medel MD Attending physician Active Start: August 08, 2024 End: August 08, 2024 Team Status: Active Member Role/Relationship Status Dates Dr. Jairon Medel MD Primary care physician Activ e Start: August 21, 2024 Jairon TREVIÑO MD Attending physician Active Start: August 21, 2024 Team Status: Inactive Member Role/Relationship Status Dates Dr. Jairon Medel MD Primary care physician Activ e Start: August 28, 2024 End: August 28, 2024 Jairon TREVIÑO MD Attending physician Active Start: August 28, 2024 End: August 28, 2024 Team Status: Active Member Role/Relationship Status Dates Dr. Jairon Medel MD Primary care physician Activ e Start: September 18, 2024 Jairon TREVIÑO MD Attending physician Active Start: September 18, 2024 Team Status: Active Member Role/Relationship Status Dates Dr. Jairon Medel MD Primary care physician Activ e Start: October 16, 2024 Jairon TREVIÑO MD Attending physician Active Start: October 16, 2024 Goals (unrecognized section and content) Goals [...] BE BASED ON THE PRIMARY CLINICAL RECORDS. [employer] provides no warranty or guarantee of the accuracy or completeness of information in this document.
--- OUTSIDE RECORDS SUMMARY | 2024-11-13 07:18 | XMS RPT_ITS | CCD ---
Author Organization [facility] Inform ion Partnership [facility] Care Team Providers Care Explosive Operator Grenade Name Role Phone Carla Dye MD Unavailable PAULA ALANIZ Referring Unavailable PAULA ALANIZ Referring Unavailable ADRIANA , ALANNA Herrera Primary Care Physician MICAHAR DO, DR GAO Primary Care Physician [phone] Billy PARKER MD, Dabrandenung Unavailable Stuart RN, Kesha Unavailable Unavailable Micahar DOLarry Primary Care Provider [phone] PAULA ALANIZ Attending Unavailable MARTHA, LARRY Primary [...] ROMAR DO, DR GAO Primary Care Unavailable 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 Hylton Primary Care Provider Lary COMPLIANCE TESTER-C, Jane Attending Provider Jairon Medel MD Attending Provider Unavailsteffany Medel MD, Dr. De La O Attending Provider Jairon Medel MD Referring Provider UnavailDr. Warner Norton MD Primary Care Provider Jairon Medel MD Attending Provider Unavailsteffany Barth COMPLIANCE TESTER-C, Jane Attending Provider Gianfranco PARKER, Dr. De La O Attending Provider Dr. Jairon Medel MD Primary Care Provider Dr. Jean Claude Harry MD Emergency Provider Deric PARKER, Dr. Hylton Primary Care Provider Jairon Medel MD Attending Provider UnavailDr. Jairon Morris MD Primary Care Provider Dr. Warner Leos MD Primary Care Provider Lary COMPLIANCE TESTER-C, Jane Attending Provider Jairon Medel MD Attending Provider Unavailsteffany Medel MD, Dr. De La O Attending Provider Piero PARKER, Dr. Silverio Attending Provider Deric PARKER, Dr. Hylton Primary Care Provider Tickton COMPLIANCE TESTER-C, Jane Attending Provider Deric PARKER, Dr. Hylton Primary Care Provider Gianfranco PARKER, Jairon Attending Provider Unavaila katerina Medel MD, Jairon Referring Provider Unavaila katerina Medel MD, Dr. De La O Primary Care Provider Tickton COMPLIANCE TESTER-C, Jane Attending Provider Sameer PARKER, Dr. Dumont Attending Provider Oleghe OLS, Efewongbe Attending Unavailthea Leos Jr., Warner Primary Care Unavailable Tickton COMPLIANCE TESTER, Jane Attending Unavailable Deric Rodriguez, Warner Primary Care Unavailable Oleghe, Efewongbe Attending Unavailable Oleghe, Efewongbe Primary Care Unavailable Oleghe, Efewongbe Primary Care Unavailable Tickton COMPLIANCE TESTER, Jane Attending Unavailable Oleghe OLS, Efewongbe Attending [...] e Oleghe, Efewongbe Primary Care Unavailable Tickton COMPLIANCE TESTER, Jane Attending Unavailable Oleghe, Efewongbe Primary Care Unavailable Tickton COMPLIANCE TESTER, Jane Attending Unavailable Deric Parisi., Warner Primary Care Unavailable Oleghe, Efewongbe Attending Unavailable Deric Parisi., Warner Primary Care Unavailable Tickton COMPLIANCE TESTER, Jane Attending Unavailable Deric Rodriguez, Warner Primary Care Unavailable Oleghe, Efewongbe Attending Unavailable Oleghe, Efewongbe Primary Care Unavailable Oleghe, Efewongbe Primary Care Unavailable Tickton COMPLIANCE TESTER, Jane Attending Unavailable Gianfranco, Jairon Attending Unavailable [...] PARKER, Dr. De La O Attending Physician Gianfranco PARKER, Jairon Attending Physician Unavail able Allergies Allergy Classification Reported Allergen(s) Allergy Type Date of Onset Reaction(s) Facility (1 source) Sulfacetamide Drug Allergy 4 rash [facility] Work Phone: (10 sources) Sulfonamides (Antibiotic); Translations: [SULFA (SULFONAMIDE ANTIBIOTICS)] Propensity to adverse reactions to drug (disorder) [address] [facility] Other [place] Repository Medications Current Medications Medication Drug Class(es) [...] taking., # 12 tab(s), 1 Refill(s), Pharmacy: [facility]/pharmacy #[id number], 155, cm, 12/15/23 10:32:00 EST, Height, [...] taking., # 12 tab(s), 1 Refill(s), Pharmacy: [facility]/pharmacy #[id number], 153.5, cm, 06/15/23 10:26:00 EDT, Height, kg, 06/15/23 10:26:00 EDT, Dosing Weight Start Date: 06/15/23 Stop Date: 11/30/23 Status: Ordered anastrozole 1 mg oral tablet (20 sources) Aromatase Inhibitor Start: 09-28-2023 take 1 tablet by mouth once daily in the evening anastrozole 1 mg oral tablet 1 tab(s), Oral, qPM, # 90 tab(s), 0 Refill(s), Pharmacy: [facility]/pharmacy #[id number], 153.5, cm, 06/15/23 10:26:00 EDT, Height, kg, 06/15/23 10:26:00 EDT, Dosing Weight Start Date: 09/28/23 Status: Ordered Start: 03-16-2023 take 1 tablet by charles th once daily in the evening anastrozole 1 mg oral tablet 1 tab(s), Oral, qPM, # 90 tab(s), 1 Refill(s), Pharmacy: [facility]/pharmacy #[id number], 155.2, cm, 03/16/23 9:59:00 EST, Height, kg, 03/16/23 9:59:00 EST, Dosing Weight Start Date: 03/16/23 Status: Ordered Start: 09-30-2022 take 1 tablet by charles th once daily in the evening anastrozole 1 mg oral tablet 1 tab(s), Oral, qPM, # 90 tab(s), 1 Refill(s), [id number] 156.5, cm, 09/11/22 11:11:00 EDT, Height, kg, 09/11/22 11:11:00 EDT, Dosing Weight Start Date: 09/30/22 Status: Ordered Start: 11-21-2021 take 1 tablet by charles th once daily in the evening anastrozole 1 mg oral tablet 1 tab(s), Oral, qPM, # 90 tab(s), 1 Refill(s), Pharmacy: [facility] STORE [id number], 154.5, cm, 11/18/21 13:32:00 EDT, Height, kg, 11/18/21 13:32:00 EDT, Dosing Weight Start Date: 11/21/21 Status: Ordered Start: 03-20-2020 End: 04-05-2021 take 1 tablet by mouth once daily anastrozole 1 mg oral tablet 1 tab(s), Oral, qDay, # 90 tab(s), 1 Refill(s), Pharmacy: [facility] STORE [id number], 155, cm, 11/04/20 8:28:00 EDT, Height, kg, 11/11/20 8:26:00 EDT, Dosing Weight Start Date: 04/17/21 Status: Ordered Start: 01-12-2018 ARIMIDEX 1 MG TABS 1 tablet daily ANASTROZOLE [id number] [facility] above: TAKE 1 TABLET BY CHARLES TH EVERY DAY aspirin 81 mg delayed release oral tablet (20 sources) Platelet Aggregation Inhibitor, Nonsteroidal Anti-inflammatory Drug Start: 10-05-2023 End: 04-02-2024 aspirin 81 mg oral delayed release tablet Dose : 81 mg = 1 tab(s), Oral, qAM, do not crush or chew, # 90 tab(s), 1 Refill(s), Pharmacy: [facility]/pharmacy #[id number], 153.5, cm, 06/15/23 10:26:00 EDT, Height, kg, 06/15/23 10:26:00 EDT, Dosing Weight Start Date: 10/05/23 Stop Date: 04/02/24 Status: Ordered Start: 03-05-2022 End: 05-20-2023 aspirin 81 mg oral delayed r elease tablet Dose : 81 mg = 1 tab(s), Oral, qAM, do not crush or chew, # 90 tab(s), 3 Refill(s), Pharmacy: [facility]/pharmacy #[id number], 154.3, cm, 04/16/22 16:12:00 EST, Height, [...] qPM, # 100 tab(s), 1 Refill(s), Pharmacy: [facility]/pharmacy #[id number], 155, cm, 12/15/23 10:32:00 EST, Height, kg, 12/15/23 10:26:00 EST, Dosing Weight Start Date: 12/15/23 Stop Date: 07/02/24 Status: Ordered Quantity: 100.0 Unit: tab(s) Repeat number: 2 Start: 09-13-2023 End: 12-12-2023 atorvastatin 20 mg oral tabl et Dose : 20 mg = 1 tab(s), Oral, qPM, # 90 tab(s), 0 Refill(s), Pharmacy: [facility]/pharmacy #[id number], 153.5, cm, 06/15/23 10:26:00 EDT, Height, kg, 06/15/23 10:26:00 EDT, Dosing Weight Start Date: 09/13/23 Stop Date: 12/12/23 Status: Ordered Start: 01-29-2023 End: 07-28-2023 atorvastatin 20 mg oral tabl et Dose : 20 mg = 1 tab(s), Oral, qPM, # 90 tab(s), 1 Refill(s), [id number], 156.5, cm, 09/11/22 11:11:00 EDT, Height, kg, 09/11/22 11:11:00 EDT, Dosing Weight Start Date: 01/29/23 Stop Date: 07/28/23 Status: Ordered Start: 03-09-2022 End: 11-21-2022 atorvastatin 20 mg oral tabl et Dose : 20 mg = 1 tab(s), Oral, qPM, # 90 tab(s), 1 Refill(s), [id number], 154.3, cm, 04/16/22 16:12:00 EST, Height, kg, 04/16/22 16:12:00 EST, Dosing Weight Start Date: 05/25/22 Stop Date: 11/21/22 Status: Ordered Start: 08-22-2021 take 0.5 tablet by m outh once daily atorvastatin 20 mg oral tablet 0.5 tab(s), Oral, qDay, # 45 tab(s), 1 Refill(s), Pharmacy: [facility] STORE [id number], 155, cm, 05/05/21 8:51:00 EDT, Height, kg, 05/05/21 8:51:00 EDT, Dosing Weight Start Date: 08/22/21 Status: Ordered Start: 11-06-2020 take 0.5 tablet by m outh once daily atorvastatin 20 mg oral tablet See Instructions, TAKE 1/2 TABLET EVERY DAY, # 45 tab(s), 1 Refill(s), Pharmacy: [facility]/pharmacy #[id number], 155, cm, 11/04/20 8:28:00 EDT, Height, [...] qAM, # 90 cap(s), 0 Refill(s), [id number], 156.2, cm, 07/01/22 6:28:00 EDT, Height, kg, 07/01/22 6:28:00 EDT, Dosing Weight Start Date: 08/10/22 Status: Ordered Start: 12-07-2016 take 1 capsule by [facility] once daily in the morning celecoxib 100 mg oral capsule 1 cap(s), Oral, qAM, # 90 cap(s), 1 Refill(s), Pharmacy: [facility] STORE [id number], 154.3, cm, 04/16/22 16:12:00 EST, Height, kg, 04/16/22 16:12:00 EST, Dosing Weight Start Date: 05/21/22 Status: Ordered Start: 10-27-2013 CELEBREX 100 M G CAPS 1-2 capsules weekly as needed CELECOXIB [id number] Vidya Babin LPN Comment on above: Take 100 mg by mouth once daily. ciclopirox 80 mg/ml topical solution (6 sources) Start: 03-05-2022 End: 01-06-2024 ciclopirox 8% topical solution Apply 1 angelica, Topical, Daily, apply to affected toenails and surrounding area once daily, remove with alcohol every 7 days prior to reapplication, Apply to: toenails, X 48 week(s), # 6.6 mL, 1 Refill(s), [id number], 154.3, cm, 03/05/22 9:44:00 EST, Height, 75.6 Start Date: 03/05/22 Stop Date: 01/06/24 Status: Ordered Clobetasol (3 sources) Corticosteroid Start: 01-20-2021 clobetasol 0.05% topical ointment See Instructions, APPLY TO AFFECTED AREA TWICE A DAY, # 15 gram(s), 1 Refill(s), Pharmacy: [facility] STORE [id number], 155, cm, 11/04/20 8:28:00 EDT, Height, 81.2, kg, 11/11/20 8:26:00 EDT, Dosing Weight Start Date: 01/20/21 Status: Ordered Start: 07-30-2020 Temovate 0.05% topical ointment Apply 1 angelica, Topical, BID, # 15 gram(s), 0 Refill(s), [id number] Ointment, 155, cm, 07/23/20 8:15:00 [...] qHS, # 90 tab(s), 1 Refill(s), Pharmacy: [facility]/pharmacy #[id number], 156.5, cm, 09/11/22 11:11:00 EDT, Height, [...] qHS, # 90 tab(s), 1 Refill(s), Pharmacy: [facility] STORE [id number], 155, cm, 11/04/20 8:28:00 EDT, Height, kg, [...] discomfort, # 39 tab(s), 0 Refill(s), [id number], 155, cm, 12/15/23 10:32:00 EST, [...] TID, # 5 gram(s), 0 Refill(s), [id number], Cream, 155, cm, 07/23/20 8:15:00 EDT, Height, 85.2, kg, 07/23/20 8:15:00 EDT, Dosing Weight Start Date: 07/23/20 Status: Ordered lisinopril 20 mg oral tablet (14 sources) Angiotensin Converting Enzyme Inhibitor Start: 03-16-2023 take 1 tablet by mouth once daily in the morning lisinopril 20 mg oral tablet 1 tab(s), Oral, qAM, # 90 tab(s), 1 Refill(s), [id number], 155.2, cm, 03/16/23 9:59:00 EST, Height, kg, 03/16/23 9:59:00 EST, Dosing Weight Start Date: 03/16/23 Status: Ordered Start: 10-15-2022 take 1 tablet by charles th once daily in the morning lisinopril 20 mg oral tablet 1 tab(s), Oral, qAM, # 90 tab(s), 1 Refill(s), [id number], 156.5, cm, 09/11/22 11:11:00 EDT, Height, kg, 09/11/22 11:11:00 EDT, Dosing Weight Start Date: 10/15/22 Status: Ordered Start: 04-13-2022 take 1 tablet by charles th once daily in the morning lisinopril 20 mg oral tablet 1 tab(s), Oral, qAM, # 90 tab(s), 1 Refill(s), [id number], 154.3, cm, 03/17/22 9:37:00 EST, Height, kg, 03/17/22 9:37:00 EST, Dosing Weight Start Date: 04/13/22 Status: Ordered Start: 09-02-2021 take 1 tablet by charles th once daily lisinopril 20 mg oral tablet 1 tab(s), Oral, qDay, # 90 tab(s), 1 Refill(s), Pharmacy: [facility] [id number], 155, cm, 05/05/21 8:51:00 EDT, Height, kg, 05/05/21 8:51:00 EDT, Dosing Weight Start Date: 09/02/21 Status: Ordered Start: 10-22-2020 take 1 tablet by charles th once daily lisinopril 20 mg oral tablet See Instructions, TAKE 1 TABLET BY MOUTH EVERY DAY, # 90 tab(s), 1 Refill(s), Pharmacy: [facility] STORE [id number], 155, cm, 07/23/20 8:15:00 EDT, Height, kg, 07/30/20 8:40:00 EDT, Dosing Weight Start Date: 10/22/20 Status: Ordered losartan potassium 50 mg oral tablet (20 sources) Angiotensin 2 Receptor Aniyah Start: 10-27-2013 End: 07-02-2024 take 1 tablet by mouth once daily 24 hr memantine hydrochloride 28 mg extended release oral capsule (20 sources) C-sgwyop-I-aspartate Receptor Antagonist Start: 07-24-2024 take 1 capsule [...] qAM, # 90 tab(s), 1 Refill(s), [id number], 156.5, cm, 09/11/22 11:11:00 EDT, Height, kg, 09/11/22 11:11:00 EDT, Dosing Weight Start Date: 01/29/23 Status: Ordered Start: 05-25-2022 take 1 tablet by charles th once daily in the morning memantine 5 mg oral tablet 1 tab(s), Oral, qAM, # 90 tab(s), 1 Refill(s), [id number], 154.3, cm, 04/16/22 16:12:00 EST, Height, kg, 04/16/22 16:12:00 EST, Dosing Weight Start Date: 05/25/22 Status: Ordered Start: 07-14-2021 take 1 tablet by charles th once daily memantine 5 mg oral tablet 1 tab(s), Oral, qDay, # 90 tab(s), 1 Refill(s), Pharmacy: [facility] STORE [id number], 155, cm, 05/05/21 8:51:00 EDT, Height, kg, 05/05/21 8:51:00 EDT, Dosing Weight Start Date: 07/14/21 Status: Ordered Start: 04-15-2021 take 1 tablet by charles once daily memantine 5 mg oral tablet 1 tab(s), Oral, qDay, # 90 tab(s), 0 Refill(s), Pharmacy: [facility] STORE [id number], 155, cm, 11/04/20 8:28:00 EDT, Height, kg, 11/11/20 8:26:00 EDT, Dosing Weight Start Date: 04/15/21 Status: Ordered Start: 10-17-2020 take 1 tablet by charles once daily memantine 5 mg oral tablet See Instructions, TAKE 1 TABLET BY MOUTH EVERY DAY, # 90 tab(s), 0 Refill(s), Pharmacy: [facility] STORE [id number], 155, cm, 07/23/20 8:15:00 EDT, Height, kg, [...] 0 Refill(s) Start Date: 03/17/22 Status: Ordered Gwsllirhdvea-Pc-Agws-Mineral s (Multiple Vitamins For Women) 1 EACH tablet (12 sources) Start: 04-20-2017 take 1 tablet by mouth once daily Start: 04-20-2017 take 1 tablet by charles once daily Ghbzzboeyoet-Yx-Vesz-Minerals (Multiple Vitamins For Women) 1 EACH tablet Active 1 NMA PO DAILY April 20, 2017 12:00am mupirocin 0.02 mg/mg topical ointment (2 sources) RNA Synthetase Inhibitor Antibacterial Start: 06-19-2022 mupirocin 2% top ical ointment Apply 1 angelica, Topical, BID, Bilateral intranasal application twice daily x 5 days pre-surgery., Apply to: nostril, each, # 22 gram(s), 0 Refill(s), Pharmacy: [facility]/pharmacy #[id number], Ointment, 154.3, cm, 05/28/22 7:35:00 EDT, Height, 77 Start Date: 06/19/22 Status: Ordered nystatin [id number] unt/ml topical cream (8 sources) Polyene Antifungal Start: 07-24-2024 Start: 09-11-2022 End: 11-10-2022 nystatin 100,000 units/g top ical cream Apply 1 angelica, Topical, BID, PRN Rash, Apply to the affected area twice daily until healing complete., # 30 gram(s), 1 Refill(s), [id number], Cream, 156.5, cm, 09/11/22 11:11:00 [...] Date: 01/24/24 Status: Ordered polyethylene glycol 3350 03678 mg powder for oral solution (8 sources) [...] day(s), # 6 tab(s), 0 Refill(s), Pharmacy: [facility]/pharmacy #[id number], 155, cm, 12/15/23 10:32:00 EST, Height, [...] Start: 02-26-2017 take 2 tablets by mo [facility] once daily atenolol (TENORMIN) 50 [...] TABS 1 tablet daily CALCIUM CARB-CHOLECALCIFEROL TABS [id number] Vidya Babin HEEL BURNISHER calcium carbonate 1500 mg oral tablet (12 sources) Start: End: calcium (as carbonate) 600 mg oral tablet Dose : 600 mg = 1 tab(s), Oral, qDay, # 90 tab(s), 3 Refill(s), Pharmacy: [facility]/pharmacy #[id number], 156.5, cm, 09/11/22 11:11:00 EDT, Height, [...] on above: Take 3 tablets by mo [facility] once daily. cyclobenzaprine hydrochloride 10 mg oral [...] qAM, # 90 tab(s), 1 Refill(s), Pharmacy: [facility] STORE 80668, 154.5, cm, 11/18/21 13:32:00 EDT, Height, kg, [...] MULTIVITAMINS CAPS 1 capsule daily MULTIPLE VITAMIN [id number] Jane Troy multivitamin tablet (2 sources) take [...] Auto (Unsp spec) [#/Vol] 2.13 10*3/uL 0.83-4.51 [facility] Absolute neutrophil countOrd ered By: Jairon Medel on 10-16-2024 Neutrophils (Bld) [#/Vol] 4.1 10*3/uL 2.0-7.7 [facility] Anion gap in Serum or Plasma Ordered By: Poojasreekanthmahadmakenzie Torojenifersophia on 10-16-2024 Anion gap [Moles/Vol] 13 mmol/L 5-15 [facility] Automated lymphocyte count a s percentage of total leukocytesOrdered By: Carrillomahadmakenzie Torojenifersophia on 10-16-2024 Lymphocytes/100 WBC Auto (Unsp spec) 29.5 % 19-41 [facility] BUN/creatinine ratioOrdered By: sreekanthavonmoremakenzie Torojenifersophia on 10-16-2024 Urea nitrogen/Creatinine [Mass ratio] 22.8 mg/mg High 10-20 [facility] Basophil percentageOrdered B y: Jairon De Leonsophia on 10-16-2024 Basophils/100 WBC (Bld) 0.8 % 0-1 [facility] Carbon dioxide, total [Moles /volume] in Central venous bloodOrdered By: Jairon Cortezjenifersophia on 10-16-2024 CO2 [Moles/Vol] 22.8 mmol/L 21.0-32.0 [facility] Chloride assayOrdered By: meghanmakenzie Torojenifersophia on 10-16-2024 Chloride [Moles/Vol] 104 mmol/L 98-108 [facility] Eosinophil percentageOrdered By: margarette De Leonsophia on 10-16-2024 Eosinophils/100 WBC (Bld) 3.2 % 0-5 [facility] Erythrocyte distribution wid th ratioOrdered By: margarette Cortezjenifersophia on 10-16-2024 Erythrocyte distribution width (RBC) [Ratio] 13.2 % 11.6-14.6 [facility] Erythrocyte distribution wid th standard deviationOrdered By: margarette Torojenifersophia on 10-16-2024 Erythrocyte distribution width (RBC) [Ratio] 44.1 fl High 35.1-43.9 [facility] Glomerular filtration rate ( GFR) estimation/1.73 sq m using serum, plasma, or whole bOrdered By: Jairon Medel on 10-16-2024 GFR/1.73 sq M.predicted among non-blacks MDRD (S/P/Bld) [Vol rate/Area] 51 mL/min/{1.73_m2} Low >60 [facility] Comment on above: mL/min/1.73m2 CKD-EP I Creatinine Equation (2020) Hematocrit Auto (Bld) [Volum e fraction]Ordered By: Jairon Medel on 10-16-2024 Hematocrit (Bld) [Volume fraction] 32.8 % Low 37-47 [facility] Hemoglobin measurementOrdere d By: Jairon Medel on 10-16-2024 Hemoglobin (Bld) [Mass/Vol] 10.0 g/dL Low 12.0-15.0 [facility] Immature granulocytes/100 WB C Auto (Bld)Ordered By: Jairon Medel on 10-16-2024 Immature granulocytes/100 WBC (Bld) 0.300 % 0.0-0.9 [facility] Comment on above: IG% - Immature Granu locytes (promyelocytes, myelocytes and metamyelocytes) > 1% indicates that a LEFT SHIFT is Present. MCV (mean corpuscular volume ) determinationOrdered By: Jairon Medel on 10-16-2024 MCV (RBC) [Entitic vol] 91.4 fL 81-99 [facility] Mean corpuscular hemoglobin (MCH) determinationOrdered By: Jairon Medel 10-16-2024 MCH (RBC) [Entitic mass] 27.9 pg 27.0-32.0 [facility] Mean corpuscular hemoglobin concentration (MCHC) determinationOrdered By: Jairon Medel 10-16-2024 MCHC (RBC) [Mass/Vol] 30.5 g/dL Low 32-36 [facility] Mean platelet volume determi nationOrdered By: Jairon Medel on 10-16-2024 Platelet mean volume (Bld) [Entitic vol] 10.6 fL 6.2-12.0 [facility] Monocyte percentageOrdered B y: Jairon Medel on 10-16-2024 Monocytes/100 WBC (Bld) 9.4 % 0-10 [facility] Neutrophil percentageOrdered By: Jairon Cortezdorcas on 10-16-2024 Neutrophils/100 WBC (Bld) 56.8 % 47-70 [facility] Nucleated red blood cell per centageOrdered By: Poojasreekanthbraden Cortezdorcas on 10-16-2024 Nucleated RBC/100 WBC (Bld) [Ratio] 0 % 0-5 [facility] Platelet countOrdered By: Pooja margarette Cortezjenifersophia on 10-16-2024 Platelets (Bld) [#/Vol] 273 10*3/uL 150-450 [facility] Potassium measurement (mass/ volume)Ordered By: Carrillomahadmakenzie Torojenifersophia on 10-16-2024 Potassium (Unsp spec) [Mass/Vol] 4.2 mmol/L 3.3-5.1 [facility] RBC Auto (Bld) [#/Vol]Ordere d By: Poojamargarette Cortezjenifersophia on 10-16-2024 RBC (Bld) [#/Vol] 3.59 10*6/uL Low 4.2-5.4 [facility] Serum creatinine measurement (mass/volume)Ordered By: Poojasreekanthmahadmakenzie Torojenifersophia on 10-16-2024 Creatinine [Mass/Vol] 1.07 mg/dL 0.70-1.20 [facility] Serum glucose measurement (m ass/volume)Ordered By: Jairon Medel on 10-16-2024 Glucose [Mass/Vol] 76 mg/dL 70-99 [facility] Serum or plasma calcium krissy urement (mass/volume)Ordered By: Jairon Medel on 10-16-2024 Calcium [Mass/Vol] 9.7 mg/dL 7.6-11.0 [facility] Serum or plasma urea nitroge n measurement (mass/volume)Ordered By: Jairon Torojenifersophia on 10-16-2024 Urea nitrogen [Mass/Vol] 24 mg/dL High 4-19 [facility] Sodium levelOrdered By: Carrillo braden Gianfranco on 10-16-2024 Sodium [Moles/Vol] 139 mmol/L 133-145 [facility] White blood cell (WBC) count Ordered By: Jairon Medel on 10-16-2024 WBC (Bld) [#/Vol] 7.2 10*3/uL 4.4-11.0 [facility] Absolute lymphocyte countOrd ered By: Jairon Medel on 09-18-2024 Lymphocytes Auto (Unsp spec) [#/Vol] 1.93 10*3/uL 0.83-4.51 [facility] Absolute neutrophil countOrd ered By: Efmargarette Medel on 09-18-2024 Neutrophils (Bld) [#/Vol] 3.1 10*3/uL 2.0-7.7 [facility] Anion gap in Serum or Plasma Ordered By: Jaiorn Medel on 09-18-2024 Anion gap [Moles/Vol] 11 mmol/L 5-15 [facility] Automated lymphocyte count a s percentage of total leukocytesOrdered By: Jairon Medel on 09-18-2024 Lymphocytes/100 WBC Auto (Unsp spec) 34.0 % 19-41 [facility] BUN/creatinine ratioOrdered By: Jairon Medel on 09-18-2024 Urea nitrogen/Creatinine [Mass ratio] 23.1 mg/mg High 10-20 [facility] Basophil percentageOrdered B y: Jairon Medel on 09-18-2024 Basophils/100 WBC (Bld) 0.7 % 0-1 [facility] Carbon dioxide, total [Moles /volume] in Central venous bloodOrdered By: Jairon Medel on 09-18-2024 CO2 [Moles/Vol] 23.8 mmol/L 21.0-32.0 [facility] Chloride assayOrdered By: Pooja Medel on 09-18-2024 Chloride [Moles/Vol] 106 mmol/L 98-108 [facility] Eosinophil percentageOrdered By: Jairon Medel on 09-18-2024 Eosinophils/100 WBC (Bld) 2.1 % 0-5 [facility] Erythrocyte distribution wid th ratioOrdered By: Jairon Medel on 09-18-2024 Erythrocyte distribution width (RBC) [Ratio] 13.6 % 11.6-14.6 [facility] Erythrocyte distribution wid th standard deviationOrdered By: Jairon Medel on 09-18-2024 Erythrocyte distribution width (RBC) [Ratio] 45.4 fl High 35.1-43.9 [facility] Glomerular filtration rate ( GFR) estimation/1.73 sq m using serum, plasma, or whole bOrdered By: Jairon Medel on 09-18-2024 GFR/1.73 sq M.predicted among non-blacks MDRD (S/P/Bld) [Vol rate/Area] 59 mL/min/{1.73_m2} Low >60 [facility] Comment on above: mL/min/1.73m2 CKD-EP I Creatinine Equation (2020) Hematocrit Auto (Bld) [Volum e fraction]Ordered By: Jairon Medel on 09-18-2024 Hematocrit (Bld) [Volume fraction] 31.9 % Low 37-47 [facility] Hemoglobin measurementOrdere d By: Jairon Medel on 09-18-2024 Hemoglobin (Bld) [Mass/Vol] 9.9 g/dL Low 12.0-15.0 [facility] Immature granulocytes/100 WB C Auto (Bld)Ordered By: Jairon Medel on 09-18-2024 Immature granulocytes/100 WBC (Bld) 0.400 % 0.0-0.9 [facility] Comment on above: IG% - Immature Granu locytes (promyelocytes, myelocytes and metamyelocytes) > 1% indicates that a LEFT SHIFT is Present. MCV (mean corpuscular volume ) determinationOrdered By: Jairon Medel on 09-18-2024 MCV (RBC) [Entitic vol] 91.7 fL 81-99 [facility] Mean corpuscular hemoglobin (MCH) determinationOrdered By: Jairon Medel 09-18-2024 MCH (RBC) [Entitic mass] 28.4 pg 27.0-32.0 [facility] Mean corpuscular hemoglobin concentration (MCHC) determinationOrdered By: Jairon Medel 09-18-2024 MCHC (RBC) [Mass/Vol] 31.0 g/dL Low 32-36 [facility] Mean platelet volume determi nationOrdered By: Jairon Medel on 09-18-2024 Platelet mean volume (Bld) [Entitic vol] 10.9 fL 6.2-12.0 [facility] Monocyte percentageOrdered B y: Jairon Medel on 09-18-2024 Monocytes/100 WBC (Bld) 7.9 % 0-10 [facility] Neutrophil percentageOrdered By: Jairon Medel on 09-18-2024 Neutrophils/100 WBC (Bld) 54.9 % 47-70 [facility] Nucleated red blood cell per centageOrdered By: Jairon Medel on 09-18-2024 Nucleated RBC/100 WBC (Bld) [Ratio] 0 % 0-5 [facility] Platelet countOrdered By: Pooja sreekanthbraden Medel on 09-18-2024 Platelets (Bld) [#/Vol] 247 10*3/uL 150-450 [facility] Potassium measurement (mass/ volume)Ordered By: Jairon Medel on 09-18-2024 Potassium (Unsp spec) [Mass/Vol] 4.1 mmol/L 3.3-5.1 [facility] RBC Auto (Bld) [#/Vol]Ordere d By: Jairon Medel on 09-18-2024 RBC (Bld) [#/Vol] 3.48 10*6/uL Low 4.2-5.4 [facility] Serum creatinine measurement (mass/volume)Ordered By: Jairon Medel on 09-18-2024 Creatinine [Mass/Vol] 0.94 mg/dL 0.70-1.20 [facility] Serum glucose measurement (m ass/volume)Ordered By: Jairon Medel on 09-18-2024 Glucose [Mass/Vol] 86 mg/dL 70-99 [facility] Serum or plasma calcium krissy urement (mass/volume)Ordered By: Jairon Medel on 09-18-2024 Calcium [Mass/Vol] 9.9 mg/dL 7.6-11.0 [facility] Serum or plasma urea nitroge n measurement (mass/volume)Ordered By: Jairon Medel on 09-18-2024 Urea nitrogen [Mass/Vol] 22 mg/dL High 4-19 [facility] Sodium levelOrdered By: Carrillo Medel on 09-18-2024 Sodium [Moles/Vol] 141 mmol/L 133-145 [facility] White blood cell (WBC) count Ordered By: Jairon Medel on 09-18-2024 WBC (Bld) [#/Vol] 5.7 10*3/uL 4.4-11.0 [facility] Bilirubin directOrdered By: Jairon Medel on 08-28-2024 Bilirubin.direct [Mass/Vol] 0.12 mg/dL 0.00-0.30 [facility] Bilirubin, totalOrdered By: Jairon Medel on 08-28-2024 Bilirubin [Mass/Vol] 0.23 mg/dL 0.00-1.30 [facility] Calculated very low density lipoprotein (VLDL) cholesterol measurementOrdered By: Jairon Medel on 08-28-2024 Calculated very low density lipoprotein (VLDL) cholesterol measurement 23 mg/dL 5-40 [facility] LDL calc ser/plasOrdered By: Jairon Medel on 08-28-2024 Cholesterol in LDL [Mass/Vol] 46 mg/dL [facility] Comment on above: Byfpqyhyiy=729-083 m g/dL & Higher Nxwu=827 mg/dL or greater Laboratory - Chemistry and C hemistry - challengeOrdered By: Jairon Medel on 08-28-2024 AST [Catalytic activity/Vol] 15 U/L <32 [facility] Screening total cholesterol/ high density lipoprotein (HDL) cholesterol ratioOrdered By: Jairon Medel on 08-28-2024 Cholesterol.total/Luisa sterol in HDL [Mass ratio] 2.33 {ratio} [facility] Serum globulin measurementOr dered By: Jairon Medel on 08-28-2024 Globulin (S) [Mass/Vol] 2.2 g/dL 2.2-4.2 [facility] Serum or plasma alanine crane otransferase (ALT) measurementOrdered By: Jairon Medel on 08-28-2024 ALT [Catalytic activity/Vol] 9 U/L <35 [facility] Serum or plasma albumin krissy urement (mass/volume)Ordered By: Jairon Medel on 08-28-2024 Albumin [Mass/Vol] 3.7 g/dL 3.4-4.8 [facility] Serum or plasma alkaline luis sphatase measurementOrdered By: Jairon Medel on 08-28-2024 ALP [Catalytic activity/Vol] 73 U/L 35-104 [facility] Serum or plasma cholesterol in HDL measurement (mass/volume)Ordered By: Jairon Medel 08-28-2024 Cholesterol in HDL [Mass/Vol] 52 mg/dL >40 [facility] Comment on above: National Cholesterol Education Program (NCEP) guidelines:<40 mg/dL: Low HDL-cholesterol (major risk factor for CHD)>= 60 mg/dL: High HDL-cholesterol (negative risk factor for CHD)HDL-cholesterol is affected by a number of factors, e.g. smoking, exercise, hormones, sex and age. Serum or plasma cholesterol measurement (mass/volume)Ordered By: Jairon Medel on 08-28-2024 Cholesterol [Mass/Vol] 121 mg/dL <[address] [facility] Comment on above: Cholesterol level, D esirable <200 mg/dLBorderline high cholesterol 200-239 mg/dLHigh cholesterol >=240 mg/dLRecommendations of the NCEP Adult Treatment Panel for the following risk-cutoff thresholds for the [place] population. Serum or plasma valproate me asurement (mass/volume)Ordered By: Jairon Medel on 08-28-2024 Valproate [Mass/Vol] 14 ug/mL Low 50-100 [facility] Comment on above: Valproic Acid concen trations >100 ug/mL are potentially toxic. Total proteinOrdered By: Masoud Medel on 08-28-2024 Protein [Mass/Vol] 5.9 g/dL 5.9-8.4 [facility] Triglycerides measurementOrd ered By: Jairon Medel 08-28-2024 Triglyceride [Mass/Vol] 115 mg/dL <199 [facility] Comment on above: The drugs N-Acetylcy steine and Metamizole may falsely depress this assay. Normal range: <150 mg/dLBorderline High: 150-199 mg/dLHigh: 200-499 mg/dLVery High: >500 mg/dL Absolute lymphocyte countOrd ered By: Jairon Medel on 08-21-2024 Lymphocytes Auto (Unsp spec) [#/Vol] 1.69 10*3/uL 0.83-4.51 [facility] Absolute neutrophil countOrd ered By: Jairon Medel on 08-21-2024 Neutrophils (Bld) [#/Vol] 4.3 10*3/uL 2.0-7.7 [facility] Anion gap in Serum or Plasma Ordered By: Jairon Medel on 08-21-2024 Anion gap [Moles/Vol] 10 mmol/L 5-15 [facility] Automated lymphocyte count a s percentage of total leukocytesOrdered By: Jairon Medel on 08-21-2024 Lymphocytes/100 WBC Auto (Unsp spec) 24.9 % 19-41 [facility] BUN/creatinine ratioOrdered By: Jairon Medel on 08-21-2024 Urea nitrogen/Creatinine [Mass ratio] 21.2 mg/mg High 10-20 [facility] Basophil percentageOrdered B y: Jairon Medel on 08-21-2024 Basophils/100 WBC (Bld) 0.7 % 0-1 [facility] Carbon dioxide, total [Moles /volume] in Central venous bloodOrdered By: Jairon Medel on 08-21-2024 CO2 [Moles/Vol] 24.4 mmol/L 21.0-32.0 [facility] Chloride assayOrdered By: Pooja Medel on 08-21-2024 Chloride [Moles/Vol] 108 mmol/L 98-108 [facility] Eosinophil percentageOrdered By: Jairon Medel on 08-21-2024 Eosinophils/100 WBC (Bld) 1.9 % 0-5 [facility] Erythrocyte distribution wid th ratioOrdered By: Jairon Medel on 08-21-2024 Erythrocyte distribution width (RBC) [Ratio] 14.2 % 11.6-14.6 [facility] Erythrocyte distribution wid th standard deviationOrdered By: Jairon Medel on 08-21-2024 Erythrocyte distribution width (RBC) [Ratio] 47.2 fl High 35.1-43.9 [facility] Glomerular filtration rate ( GFR) estimation/1.73 sq m using serum, plasma, or whole bOrdered By: Jairon Medel on 08-21-2024 GFR/1.73 sq M.predicted among non-blacks MDRD (S/P/Bld) [Vol rate/Area] 67 mL/min/{1.73_m2} >60 [facility] Comment on above: mL/min/1.73m2 CKD-EP I Creatinine Equation (2020) Hematocrit Auto (Bld) [Volum e fraction]Ordered By: Jairon Medel on 08-21-2024 Hematocrit (Bld) [Volume fraction] 31.9 % Low 37-47 [facility] Hemoglobin measurementOrdere d By: Jairon Medel on 08-21-2024 Hemoglobin (Bld) [Mass/Vol] 10.2 g/dL Low 12.0-15.0 [facility] Immature granulocytes/100 WB C Auto (Bld)Ordered By: Jairon Medel on 08-21-2024 Immature granulocytes/100 WBC (Bld) 0.100 % 0.0-0.9 [facility] Comment on above: IG% - Immature Granu locytes (promyelocytes, myelocytes and metamyelocytes) > 1% indicates that a LEFT SHIFT is Present. MCV (mean corpuscular volume ) determinationOrdered By: Jairon Medel on 08-21-2024 MCV (RBC) [Entitic vol] 91.7 fL 81-99 [facility] Mean corpuscular hemoglobin (MCH) determinationOrdered By: Jairon Medel 08-21-2024 MCH (RBC) [Entitic mass] 29.3 pg 27.0-32.0 [facility] Mean corpuscular hemoglobin concentration (MCHC) determinationOrdered By: Jairon Medel on 08-21-2024 MCHC (RBC) [Mass/Vol] 32.0 g/dL 32-36 [facility] Mean platelet volume determi nationOrdered By: Poojasreekanthmahadmakenzie Torojenifersophia on 08-21-2024 Platelet mean volume (Bld) [Entitic vol] 10.6 fL 6.2-12.0 [facility] Monocyte percentageOrdered B y: Carrillomahadmakenzie Torojenifersophia on 08-21-2024 Monocytes/100 WBC (Bld) 9.0 % 0-10 [facility] Neutrophil percentageOrdered By: Jairon Torojenifersophia on 08-21-2024 Neutrophils/100 WBC (Bld) 63.4 % 47-70 [facility] Nucleated red blood cell per centageOrdered By: Jairon Torojenifersophia on 08-21-2024 Nucleated RBC/100 WBC (Bld) [Ratio] 0 % 0-5 [facility] Platelet countOrdered By: Pooja margarette Cortezjenifersophia on 08-21-2024 Platelets (Bld) [#/Vol] 232 10*3/uL 150-450 [facility] Potassium measurement (mass/ volume)Ordered By: Jairon Medel on 08-21-2024 Potassium (Unsp spec) [Mass/Vol] 4.4 mmol/L 3.3-5.1 [facility] RBC Auto (Bld) [#/Vol]Ordere d By: Jairon Torojenifersophia on 08-21-2024 RBC (Bld) [#/Vol] 3.48 10*6/uL Low 4.2-5.4 [facility] Serum creatinine measurement (mass/volume)Ordered By: Jairon Medel on 08-21-2024 Creatinine [Mass/Vol] 0.85 mg/dL 0.70-1.20 [facility] Serum glucose measurement (m ass/volume)Ordered By: Jairon Medel on 08-21-2024 Glucose [Mass/Vol] 95 mg/dL 70-99 [facility] Serum or plasma calcium krissy urement (mass/volume)Ordered By: Jairon Medel on 08-21-2024 Calcium [Mass/Vol] 9.4 mg/dL 7.6-11.0 [facility] Serum or plasma urea nitroge n measurement (mass/volume)Ordered By: Jairon Medel on 08-21-2024 Urea nitrogen [Mass/Vol] 18 mg/dL 4-19 [facility] Sodium levelOrdered By: Carrillo feliciano Cortezdorcas on 08-21-2024 Sodium [Moles/Vol] 142 mmol/L 133-145 [facility] White blood cell (WBC) count Ordered By: Jairon Medel on 08-21-2024 WBC (Bld) [#/Vol] 6.8 10*3/uL 4.4-11.0 [facility] Emergency Department Summary on 07-24-2024 Emergency Department Summary [facility] Medical Records Department [address] [place] [address] Emergency Department Summary 07/24/24 MR#: [id number] Acct: [id number] Name: CT DALTON Rep #: [id number] : 1940 83 From: Jean Claude Harry [...] PO DAILY 04/20/17 04/27/17 0 8:00 History kckvatxdromq-[id number]-ylqg-m inerals 1 ea PO DAILY 04/20/17 Unknown [...] range of motion. 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 Neurologically she is awake and alert. She answers questions she does have dementia and some confusion. She does follow commands. Const Vital Signs: 07/24/24 01:24 07/24/24 01:24 Temperature 98 F Temperature Source Oral Pulse Rate 53 L Respirator (more content not included)... Normal [facility] HIP, UNI W/ Pelvis 2-3 Views on 07-24-2024 HIP, UNI W/ Pelvis 2-3 Views [facility] Imaging Services [address] [place], [place] [id number] HIP, UNI W/ Pelvis 2-3 Views MR#: [id number] Acct: [id number] Name: CT DALTON Rep #: [id number] : 1940 F 83 From: Lauri mason MD PCP: Dr. Jairon Medel MD Status: REG ER Study: HIP, UNI W/ Pelvis 2-3 Views Date of Exam: Exam# [id number] Ordering Dr: Jean Claude Harry MD PROCEDURE: [...] Right hip moderate degenerative changes. Reading Location: [place] [address] CC: Dr. Jairon Medel MD; Dr. Jean Claude Harry MD Intertype Operator: Signed Normal [facility] Absolute lymphocyte countOrd ered By: Jairon Medel on 06-26-2024 Lymphocytes Auto (Unsp spec) [#/Vol] 2.05 10*3/uL 0.83-4.51 [facility] Absolute neutrophil countOrd ered By: Jairon Medel on 06-26-2024 Neutrophils (Bld) [#/Vol] 3.9 10*3/uL 2.0-7.7 [facility] Anion gap in Serum or Plasma Ordered By: Jairon Medel on 06-26-2024 Anion gap [Moles/Vol] 9 mmol/L 5-15 [facility] Automated lymphocyte count a s percentage of total leukocytesOrdered By: Jairon Medel on 06-26-2024 Lymphocytes/100 WBC Auto (Unsp spec) 30.5 % 19-41 [facility] BUN/creatinine ratioOrdered By: Jairon Medel on 06-26-2024 Urea nitrogen/Creatinine [Mass ratio] 20.9 mg/mg High 10-20 [facility] Basophil percentageOrdered B y: Jairon Medel on 06-26-2024 Basophils/100 WBC (Bld) 0.4 % 0-1 [facility] Carbon dioxide, total [Moles /volume] in Central venous bloodOrdered By: Jairon Medel on 06-26-2024 CO2 [Moles/Vol] 23.5 mmol/L 21.0-32.0 [facility] Chloride assayOrdered By: Pooja Medel on 06-26-2024 Chloride [Moles/Vol] 107 mmol/L 98-108 [facility] Eosinophil percentageOrdered By: sreekanthavonmoremakenzie Medel on 06-26-2024 Eosinophils/100 WBC (Bld) 1.9 % 0-5 [facility] Erythrocyte distribution wid th ratioOrdered By: sreekanthavonmoremakenzie Medel on 06-26-2024 Erythrocyte distribution width (RBC) [Ratio] 14.1 % 11.6-14.6 [facility] Erythrocyte distribution wid th standard deviationOrdered By: sreekanthavonmoremakenzie Medel on 06-26-2024 Erythrocyte distribution width (RBC) [Ratio] 46.5 fl High 35.1-43.9 [facility] Glomerular filtration rate ( GFR) estimation/1.73 sq m using serum, plasma, or whole bOrdered By: [facility] on 06-26-2024 GFR/1.73 sq M.predicted among non-blacks MDRD (S/P/Bld) [Vol rate/Area] 55 mL/min/{1.73_m2} Low >60 [facility] Comment on above: mL/min/1.73m2 CKD-EP I Creatinine Equation (2020) Hematocrit Auto (Bld) [Volum e fraction]Ordered By: [facility] on 06-26-2024 Hematocrit (Bld) [Volume fraction] 32.7 % Low 37-47 [facility] Hemoglobin measurementOrdere d By: Jairon Medel on 06-26-2024 Hemoglobin (Bld) [Mass/Vol] 10.1 g/dL Low 12.0-15.0 [facility] Immature granulocytes/100 WB C Auto (Bld)Ordered By: Jairon Medel on 06-26-2024 Immature granulocytes/100 WBC (Bld) 0.400 % 0.0-0.9 [facility] Comment on above: IG% - Immature Granu locytes (promyelocytes, myelocytes and metamyelocytes) > 1% indicates that a LEFT SHIFT is Present. MCV (mean corpuscular volume ) determinationOrdered By: Jairon Medel on 06-26-2024 MCV (RBC) [Entitic vol] 90.3 fL 81-99 [facility] Mean corpuscular hemoglobin (MCH) determinationOrdered By: Jairon Medel on 06-26-2024 MCH (RBC) [Entitic mass] 27.9 pg 27.0-32.0 [facility] Mean corpuscular hemoglobin concentration (MCHC) determinationOrdered By: Jairon Medel on 06-26-2024 MCHC (RBC) [Mass/Vol] 30.9 g/dL Low 32-36 [facility] Mean platelet volume determi nationOrdered By: Jairon Medel on 06-26-2024 Platelet mean volume (Bld) [Entitic vol] 10.3 fL 6.2-12.0 [facility] Monocyte percentageOrdered B y: Jairon Medel on 06-26-2024 Monocytes/100 WBC (Bld) 8.8 % 0-10 [facility] Neutrophil percentageOrdered By: Jairon Medel on 06-26-2024 Neutrophils/100 WBC (Bld) 58.0 % 47-70 [facility] Nucleated red blood cell per centageOrdered By: Jairon Medel on 06-26-2024 Nucleated RBC/100 WBC (Bld) [Ratio] 0 % 0-5 [facility] Platelet countOrdered By: Pooja Medel on 06-26-2024 Platelets (Bld) [#/Vol] 242 10*3/uL 150-450 [facility] Potassium measurement (mass/ volume)Ordered By: Jairon Medel on 06-26-2024 Potassium (Unsp spec) [Mass/Vol] 4.3 mmol/L 3.3-5.1 [facility] RBC Auto (Bld) [#/Vol]Ordere d By: Jairon Medel on 06-26-2024 RBC (Bld) [#/Vol] 3.62 10*6/uL Low 4.2-5.4 [facility] Serum creatinine measurement (mass/volume)Ordered By: Jairon Medel on 06-26-2024 Creatinine [Mass/Vol] 1.01 mg/dL 0.70-1.20 [facility] Serum glucose measurement (m ass/volume)Ordered By: Jairon Medel on 06-26-2024 Glucose [Mass/Vol] 89 mg/dL 70-99 [facility] Serum or plasma calcium krissy urement (mass/volume)Ordered By: Poojasreekanthmahadmakenzie Torojenifersophia on 06-26-2024 Calcium [Mass/Vol] 9.6 mg/dL 7.6-11.0 [facility] Serum or plasma urea nitroge n measurement (mass/volume)Ordered By: Poojamargarette Torojenifersophia on 06-26-2024 Urea nitrogen [Mass/Vol] 21 mg/dL High 4- [facility] Sodium levelOrdered By: Carrillo feliciano Cortezjenifersophia on 06-26-2024 Sodium [Moles/Vol] 140 mmol/L 133-145 [facility] White blood cell (WBC) count Ordered By: Jairon Torojenifersophia on 06-26-2024 WBC (Bld) [#/Vol] 6.7 10*3/uL 4.4-11.0 [facility] Absolute lymphocyte countOrd ered By: Jairon Torojenifersophia on 05-29-2024 Lymphocytes Auto (Unsp spec) [#/Vol] 2.09 10*3/uL 0.83-4.51 [facility] Absolute neutrophil countOrd ered By: Poojasreekanthmahadmakenzie Torojenifersophia on 05-29-2024 Neutrophils (Bld) [#/Vol] 3.4 10*3/uL 2.0-7.7 [facility] Anion gap in Serum or Plasma Ordered By: Jairon Medel on 05-29-2024 Anion gap [Moles/Vol] 10 mmol/L 5-15 [facility] Automated lymphocyte count a s percentage of total leukocytesOrdered By: Jairon Medel on 05-29-2024 Lymphocytes/100 WBC Auto (Unsp spec) 34.4 % - [facility] BUN/creatinine ratioOrdered By: Jiaron Torojenifersophia on 05-29-2024 Urea nitrogen/Creatinine [Mass ratio] 16.9 mg/mg 10-20 [facility] Basophil percentageOrdered B y: Carrillomahadmakenzie Medel on 05-29-2024 Basophils/100 WBC (Bld) 1.2 % High 0-1 [facility] Bilirubin directOrdered By: Jairon Medel on 05-29-2024 Bilirubin.direct [Mass/Vol] 0.17 mg/dL 0.00-0.30 [facility] Bilirubin, totalOrdered By: Jairon Medel on 05-29-2024 Bilirubin [Mass/Vol] 0.35 mg/dL 0.00-1.30 [facility] Carbon dioxide, total [Moles /volume] in Central venous bloodOrdered By: Jairon Medel on 05-29-2024 CO2 [Moles/Vol] 25.1 mmol/L 21.0-32.0 [facility] Chloride assayOrdered By: Pooja Medel on 05-29-2024 Chloride [Moles/Vol] 105 mmol/L 98-108 [facility] Eosinophil percentageOrdered By: Jairon Medel 05-29-2024 Eosinophils/100 WBC (Bld) 1.6 % 0-5 [facility] Erythrocyte distribution wid th (RBC) [Ratio]Ordered By: Jairon Medel on 05-29-2024 Erythrocyte distribution width (RBC) [Entitic vol] 41.0 fL 35.1-43.9 [facility] Erythrocyte distribution wid th ratioOrdered By: Jairon Medel 05-29-2024 Erythrocyte distribution width (RBC) [Ratio] 13.1 % 11.6-14.6 [facility] Erythrocyte distribution wid th standard deviationOrdered By: Jairon Medel 05-29-2024 Erythrocyte distribution width (RBC) [Ratio] 41.0 fl 35.1-43.9 [facility] GFR/1.73 sq M.predicted hua g non-blacks MDRD (S/P/Bld) [Vol rate/Area]Ordered By: Jairon Medel on 05-29-2024 Estimated GFR (MDRD) Non-Af Amer 50 Low >60 [facility] Comment on above: mL/min/1.73m2 CKD-EP I Creatinine Equation (2020) Glomerular filtration rate ( GFR) estimation/1.73 sq m using serum, plasma, or whole bOrdered By: Jairon Medel on 05-29-2024 GFR/1.73 sq M.predicted among non-blacks MDRD (S/P/Bld) [Vol rate/Area] 50 mL/min/{1.73_m2} Low >60 [facility] Comment on above: mL/min/1.73m2 CKD-EP I Creatinine Equation (2020) Hematocrit Auto (Bld) [Volum e fraction]Ordered By: Jairon Medel on 05-29-2024 Hematocrit (Bld) [Volume fraction] 33.4 % Low 37-47 [facility] Hemoglobin measurementOrdere d By: Jairon Medel on 05-29-2024 Hemoglobin (Bld) [Mass/Vol] 10.9 g/dL Low 12.0-15.0 [facility] Immature granulocytes/100 WB C Auto (Bld)Ordered By: Jairon Medel on 05-29-2024 Immature granulocytes/100 WBC (Bld) 0.200 % 0.0-0.9 [facility] Comment on above: IG% - Immature Granu locytes (promyelocytes, myelocytes and metamyelocytes) > 1% indicates that a LEFT SHIFT is Present. Laboratory - Chemistry and C hemistry - challengeOrdered By: Jairon Medel on 05-29-2024 AST [Catalytic activity/Vol] 20 U/L <32 [facility] Lymphocytes Auto (Unsp spec) [#/Vol]Ordered By: Jairon Medel on 05-29-2024 Lymphocytes (Bld) [#/Vol] 2.09 10*3/uL 0.83-4.51 [facility] Lymphocytes/100 WBC Auto (Un sp spec)Ordered By: Jairon Medel on 05-29-2024 Lymphocytes/100 WBC (Bld) 34.4 % 19-41 [facility] MCV (mean corpuscular volume ) determinationOrdered By: Jairon Medel on 05-29-2024 MCV (RBC) [Entitic vol] 85.9 fL 81-99 [facility] Mean corpuscular hemoglobin (MCH) determinationOrdered By: Jairon Medel on 05-29-2024 MCH (RBC) [Entitic mass] 28.0 pg 27.0-32.0 [facility] Mean corpuscular hemoglobin concentration (MCHC) determinationOrdered By: Poojasreekanthmahadmakenzie Torojenifersophia on 05-29-2024 MCHC (RBC) [Mass/Vol] 32.6 g/dL 32-36 [facility] Mean platelet volume determi nationOrdered By: Goldiemakenzie Torojenifersophia on 05-29-2024 Platelet mean volume (Bld) [Entitic vol] 10.3 fL 6.2-12.0 [facility] Monocyte percentageOrdered B y: Goldiemakenzie Torojenifersophia on 05-29-2024 Monocytes/100 WBC (Bld) 7.6 % 0-10 [facility] Neutrophil percentageOrdered By: Goldiemakenzie Torojenifersophia on 05-29-2024 Neutrophils/100 WBC (Bld) 55.0 % 47-70 [facility] Nucleated red blood cell per centageOrdered By: Poojasreekanthmahadmakenzie Torojenifersophia on 05-29-2024 Nucleated RBC/100 WBC (Bld) [Ratio] 0 % 0-5 [facility] Platelet countOrdered By: Pooja margarette Cortezjenifersophia on 05-29-2024 Platelets (Bld) [#/Vol] 247 10*3/uL 150-450 [facility] [facility] Potassium (Unsp spec) [Mass/ Vol]Ordered By: Jairon Torojenifersophia on 05-29-2024 Potassium [Moles/Vol] 4.3 mmol/L 3.3-5.1 [facility] Potassium measurement (mass/ volume)Ordered By: Jairon Torojenifersophia on 05-29-2024 Potassium (Unsp spec) [Mass/Vol] 4.3 mmol/L 3.3-5.1 [facility] RBC Auto (Bld) [#/Vol]Ordere d By: Jairon Cortezjenifersophia on 05-29-2024 RBC (Bld) [#/Vol] 3.89 10*6/uL Low 4.2-5.4 [facility] Serum creatinine measurement (mass/volume)Ordered By: Jairon Torojenifersophia on 05-29-2024 Creatinine [Mass/Vol] 1.08 mg/dL 0.70-1.20 [facility] Serum globulin measurementOr dered By: Jairon Medel on 05-29-2024 Globulin (S) [Mass/Vol] 2.5 g/dL 2.2-4.2 [facility] Serum glucose measurement (m ass/volume)Ordered By: Jairon Medel on 05-29-2024 Glucose [Mass/Vol] 89 mg/dL 70-99 [facility] Serum or plasma alanine crane otransferase (ALT) measurementOrdered By: Jairon Medel on 05-29-2024 ALT [Catalytic activity/Vol] 11 U/L <35 [facility] Serum or plasma albumin krissy urement (mass/volume)Ordered By: Jairon Medel on 05-29-2024 Albumin [Mass/Vol] 4.0 g/dL 3.4-4.8 [facility] Serum or plasma alkaline luis sphatase measurementOrdered By: Jairon Medel on 05-29-2024 ALP [Catalytic activity/Vol] 62 U/L 35-104 [facility] Serum or plasma calcium krissy urement (mass/volume)Ordered By: Jairon Medel on 05-29-2024 Calcium [Mass/Vol] 9.8 mg/dL 7.6-11.0 [facility] Serum or plasma urea nitroge n measurement (mass/volume)Ordered By: Jairon Medel on 05-29-2024 Urea nitrogen [Mass/Vol] 18 mg/dL 4-19 [facility] Sodium levelOrdered By: Carrillo Medel on 05-29-2024 Sodium [Moles/Vol] 140 mmol/L 133-145 [facility] Total proteinOrdered By: Masoud Medel on 05-29-2024 Protein [Mass/Vol] 6.4 g/dL 5.9-8.4 [facility] White blood cell (WBC) count Ordered By: Jairon Medel on 05-29-2024 WBC (Bld) [#/Vol] 6.1 10*3/uL 4.4-11.0 [facility] Absolute lymphocyte countOrd ered By: Jairon Medel on 05-24-2024 Lymphocytes Auto (Unsp spec) [#/Vol] 1.90 10*3/uL 0.83-4.51 [facility] Absolute neutrophil countOrd ered By: Jairon Medel on 05-24-2024 Neutrophils (Bld) [#/Vol] 3.1 10*3/uL 2.0-7.7 [facility] Anion gap in Serum or Plasma Ordered By: Jairon Medel on 05-24-2024 Anion gap [Moles/Vol] 11 mmol/L 5-15 [facility] Automated lymphocyte count a s percentage of total leukocytesOrdered By: Jairon Medel on 05-24-2024 Lymphocytes/100 WBC Auto (Unsp spec) 33.6 % 19-41 [facility] BUN/creatinine ratioOrdered By: Jairon Medel on 05-24-2024 Urea nitrogen/Creatinine [Mass ratio] 19.7 mg/mg 10-20 [facility] Basophil percentageOrdered B y: Jairon Medel on 05-24-2024 Basophils/100 WBC (Bld) 1.1 % High 0-1 [facility] Bilirubin, totalOrdered By: Jairon Medel on 05-24-2024 Bilirubin [Mass/Vol] 0.29 mg/dL 0.00-1.30 [facility] Carbon dioxide, total [Moles /volume] in Central venous bloodOrdered By: Jairon Medel on 05-24-2024 CO2 [Moles/Vol] 23.5 mmol/L 21.0-32.0 [facility] Chloride assayOrdered By: Pooja Medel on 05-24-2024 Chloride [Moles/Vol] 106 mmol/L 98-108 [facility] Eosinophil percentageOrdered By: Jairon Medel on 05-24-2024 Eosinophils/100 WBC (Bld) 2.1 % 0-5 [facility] Erythrocyte distribution wid th (RBC) [Ratio]Ordered By: Jairon Medel on 05-24-2024 Erythrocyte distribution width (RBC) [Entitic vol] 41.3 fL 35.1-43.9 [facility] Erythrocyte distribution wid th ratioOrdered By: Jairon Medel on 05-24-2024 Erythrocyte distribution width (RBC) [Ratio] 13.2 % 11.6-14.6 [facility] Erythrocyte distribution wid th standard deviationOrdered By: Jairon Medel on 05-24-2024 Erythrocyte distribution width (RBC) [Ratio] 41.3 fl 35.1-43.9 [facility] GFR/1.73 sq M.predicted hua g non-blacks MDRD (S/P/Bld) [Vol rate/Area]Ordered By: Jairon Medel on 05-24-2024 Estimated GFR (MDRD) Non-Af Amer 52 Low >60 [facility] Comment on above: mL/min/1.73m2 CKD-EP I Creatinine Equation (2020) Glomerular filtration rate ( GFR) estimation/1.73 sq m using serum, plasma, or whole bOrdered By: Jairon Medel on 05-24-2024 GFR/1.73 sq M.predicted among non-blacks MDRD (S/P/Bld) [Vol rate/Area] 52 mL/min/{1.73_m2} Low >60 [facility] Comment on above: mL/min/1.73m2 CKD-EP I Creatinine Equation (2020) Hematocrit Auto (Bld) [Volum e fraction]Ordered By: Jairon Medel on 05-24-2024 Hematocrit (Bld) [Volume fraction] 33.2 % Low 37-47 [facility] Hemoglobin A1c percentageOrd ered By: Jairon Medel 05-24-2024 HbA1c (Bld) [Mass fraction] 5.5 % <5.7 [facility] Comment on above: Normal < 5.7 % Predi abetic 5.7 - 6.4 % Diabetic >or= 6.5 % Please note range changes. Hemoglobin measurementOrdere d By: Jairon Medel on 05-24-2024 Hemoglobin (Bld) [Mass/Vol] 10.7 g/dL Low 12.0-15.0 [facility] Immature granulocytes/100 WB C Auto (Bld)Ordered By: Jairon Medel 05-24-2024 Immature granulocytes/100 WBC (Bld) 0.200 % 0.0-0.9 [facility] Comment on above: IG% - Immature Granu locytes (promyelocytes, myelocytes and metamyelocytes) > 1% indicates that a LEFT SHIFT is Present. Laboratory - Chemistry and C hemistry - challengeOrdered By: Jairon Medel on 05-24-2024 AST [Catalytic activity/Vol] 21 U/L <32 [facility] Lymphocytes Auto (Unsp spec) [#/Vol]Ordered By: Jairon Medel on 05-24-2024 Lymphocytes (Bld) [#/Vol] 1.90 10*3/uL 0.83-4.51 [facility] Lymphocytes/100 WBC Auto (Un sp spec)Ordered By: Jairon Medel on 05-24-2024 Lymphocytes/100 WBC (Bld) 33.6 % 19-41 [facility] MCV (mean corpuscular volume ) determinationOrdered By: Jairon Medel on 05-24-2024 MCV (RBC) [Entitic vol] 86.2 fL 81-99 [facility] Mean corpuscular hemoglobin (MCH) determinationOrdered By: [facility] on 05-24-2024 MCH (RBC) [Entitic mass] 27.8 pg 27.0-32.0 [facility] Mean corpuscular hemoglobin concentration (MCHC) determinationOrdered By: sreekanthavonmoremakenzie Medel on 05-24-2024 MCHC (RBC) [Mass/Vol] 32.2 g/dL 32-36 [facility] Mean platelet volume determi nationOrdered By: Jairon Medel on 05-24-2024 Platelet mean volume (Bld) [Entitic vol] 10.2 fL 6.2-12.0 [facility] Monocyte percentageOrdered B y: Jairon Medel on 05-24-2024 Monocytes/100 WBC (Bld) 8.1 % 0-10 [facility] Neutrophil percentageOrdered By: Jairon Medel on 05-24-2024 Neutrophils/100 WBC (Bld) 54.9 % 47-70 [facility] Nucleated red blood cell per centageOrdered By: margarette Medel on 05-24-2024 Nucleated RBC/100 WBC (Bld) [Ratio] 0 % 0-5 [facility] Platelet countOrdered By: Pooja Medel on 05-24-2024 Platelets (Bld) [#/Vol] 264 10*3/uL 150-450 [facility] Potassium (Unsp spec) [Mass/ Vol]Ordered By: Jairon Medel on 05-24-2024 Potassium [Moles/Vol] 3.9 mmol/L 3.3-5.1 [facility] Potassium measurement (mass/ volume)Ordered By: Jairon Medel on 05-24-2024 Potassium (Unsp spec) [Mass/Vol] 3.9 mmol/L 3.3-5.1 [facility] RBC Auto (Bld) [#/Vol]Ordere d By: Jairon Medel on 05-24-2024 RBC (Bld) [#/Vol] 3.85 10*6/uL Low 4.2-5.4 [facility] Serum creatinine measurement (mass/volume)Ordered By: Jairon Medel on 05-24-2024 Creatinine [Mass/Vol] 1.05 mg/dL 0.70-1.20 [facility] Serum globulin measurementOr dered By: Jairon Medel 05-24-2024 Globulin (S) [Mass/Vol] 2.6 g/dL 2.2-4.2 [facility] Serum glucose measurement (m ass/volume)Ordered By: Jairon Medel on 05-24-2024 Glucose [Mass/Vol] 95 mg/dL 70-99 [facility] Serum or plasma alanine crane otransferase (ALT) measurementOrdered By: Jairon Medel on 05-24-2024 ALT [Catalytic activity/Vol] 11 U/L <35 [facility] Serum or plasma albumin krissy urement (mass/volume)Ordered By: Jairon Medel on 05-24-2024 Albumin [Mass/Vol] 4.0 g/dL 3.4-4.8 [facility] Serum or plasma albumin/glob ulin mass ratioOrdered By: Jairon Medel 05-24-2024 Albumin/Globulin [Mass ratio] 1.5 {ratio} 0.9-2.4 [facility] Serum or plasma alkaline luis sphatase measurementOrdered By: Jairon Medel on 05-24-2024 ALP [Catalytic activity/Vol] 67 U/L 35-104 [facility] Serum or plasma calcium krissy urement (mass/volume)Ordered By: Jairon Medel on 05-24-2024 Calcium [Mass/Vol] 9.9 mg/dL 7.6-11.0 [facility] Serum or plasma urea nitroge n measurement (mass/volume)Ordered By: Jairon Medel on 05-24-2024 Urea nitrogen [Mass/Vol] 21 mg/dL High 4-19 [facility] Sodium levelOrdered By: Carrillo Medel on 05-24-2024 Sodium [Moles/Vol] 141 mmol/L 133-145 [facility] Total proteinOrdered By: Masoud Medel on 05-24-2024 Protein [Mass/Vol] 6.6 g/dL 5.9-8.4 [facility] White blood cell (WBC) count Ordered By: Jairon Medel 05-24-2024 WBC (Bld) [#/Vol] 5.7 10*3/uL 4.4-11.0 [facility] Anion gap in Serum or Plasma Ordered By: Jairon eMdel on 05-15-2024 Anion gap [Moles/Vol] 10 mmol/L 5-15 [facility] BUN/creatinine ratioOrdered By: Jairon Medel on 05-15-2024 Urea nitrogen/Creatinine [Mass ratio] 15.3 mg/mg 10-20 [facility] Carbon dioxide, total [Moles /volume] in Central venous bloodOrdered By: Jairon Medel on 05-15-2024 CO2 [Moles/Vol] 25.0 mmol/L 21.0-32.0 [facility] Chloride assayOrdered By: Pooja Medel on 05-15-2024 Chloride [Moles/Vol] 108 mmol/L 98-108 [facility] GFR/1.73 sq M.predicted hau g non-blacks MDRD (S/P/Bld) [Vol rate/Area]Ordered By: Jairon Medel on 05-15-2024 Estimated GFR (MDRD) Non-Af Amer 57 Low >60 [facility] Comment on above: mL/min/1.73m2 CKD-EP I Creatinine Equation (2020) Glomerular filtration rate ( GFR) estimation/1.73 sq m using serum, plasma, or whole bOrdered By: Jairon Medel on 05-15-2024 GFR/1.73 sq M.predicted among non-blacks MDRD (S/P/Bld) [Vol rate/Area] 57 mL/min/{1.73_m2} Low >60 [facility] Comment on above: mL/min/1.73m2 CKD-EP I Creatinine Equation (2020) Potassium (Unsp spec) [Mass/ Vol]Ordered By: Jairon Medel on 05-15-2024 Potassium [Moles/Vol] 3.8 mmol/L 3.3-5.1 [facility] Potassium measurement (mass/ volume)Ordered By: Jairon Medel on 05-15-2024 Potassium (Unsp spec) [Mass/Vol] 3.8 mmol/L 3.3-5.1 [facility] Serum creatinine measurement (mass/volume)Ordered By: Jairon Medel on 05-15-2024 Creatinine [Mass/Vol] 0.98 mg/dL 0.70-1.20 [facility] Serum glucose measurement (m ass/volume)Ordered By: Jairon Medel on 05-15-2024 Glucose [Mass/Vol] 87 mg/dL 70-99 [facility] Serum or plasma calcium krissy urement (mass/volume)Ordered By: Jairon Medel on 05-15-2024 Calcium [Mass/Vol] 9.8 mg/dL 7.6-11.0 [facility] Serum or plasma urea nitroge n measurement (mass/volume)Ordered By: Jairon Medel on 05-15-2024 Urea nitrogen [Mass/Vol] 15 mg/dL 4-19 [facility] Sodium levelOrdered By: Carrillo Medel on 05-15-2024 Sodium [Moles/Vol] 143 mmol/L 133-145 [facility] Absolute lymphocyte countOrd ered By: Poojasreekanthbraden Cortezjenifersophia on 05-01-2024 Lymphocytes Auto (Unsp spec) [#/Vol] 1.90 10*3/uL 0.83-4.51 [facility] Absolute neutrophil countOrd ered By: Carrillomahadmakenzie Torojenifersophia on 05-01-2024 Neutrophils (Bld) [#/Vol] 2.7 10*3/uL 2.0-7.7 [facility] Anion gap in Serum or Plasma Ordered By: Jairon Torojenifersophia on 05-01-2024 Anion gap [Moles/Vol] 11 mmol/L 5-15 [facility] Automated lymphocyte count a s percentage of total leukocytesOrdered By: Jairon Torojenifersophia on 05-01-2024 Lymphocytes/100 WBC Auto (Unsp spec) 35.5 % 19-41 [facility] BUN/creatinine ratioOrdered By: Jairon Torojenifersophia on 05-01-2024 Urea nitrogen/Creatinine [Mass ratio] 17.8 mg/mg 10-20 [facility] Basophil percentageOrdered B y: Carrillomahadmakenzie Torojenifersophia on 05-01-2024 Basophils/100 WBC (Bld) 1.5 % High 0-1 [facility] Carbon dioxide, total [Moles /volume] in Central venous bloodOrdered By: Jairon Torojenifersophia on 05-01-2024 CO2 [Moles/Vol] 23.3 mmol/L 21.0-32.0 [facility] Chloride assayOrdered By: Pooja Medel on 05-01-2024 Chloride [Moles/Vol] 107 mmol/L 98-108 [facility] Eosinophil percentageOrdered By: Carrillomahadmakenzie Torojenifersophia on 05-01-2024 Eosinophils/100 WBC (Bld) 2.2 % 0-5 [facility] Erythrocyte distribution wid th (RBC) [Ratio]Ordered By: Jairon Medel on 05-01-2024 Erythrocyte distribution width (RBC) [Entitic vol] 44.5 fL High 35.1-43.9 [facility] Erythrocyte distribution wid th ratioOrdered By: Jairon Medel on 05-01-2024 Erythrocyte distribution width (RBC) [Ratio] 13.0 % 11.6-14.6 [facility] Erythrocyte distribution wid th standard deviationOrdered By: Jairon Medel on 05-01-2024 Erythrocyte distribution width (RBC) [Ratio] 44.5 fl High 35.1-43.9 [facility] GFR/1.73 sq M.predicted hua g non-blacks MDRD (S/P/Bld) [Vol rate/Area]Ordered By: Jairon Medel on 05-01-2024 Estimated GFR (MDRD) Non-Af Amer 58 Low >60 [facility] Comment on above: mL/min/1.73m2 CKD-EP I Creatinine Equation (2020) Glomerular filtration rate ( GFR) estimation/1.73 sq m using serum, plasma, or whole bOrdered By: Jairon Medel on 05-01-2024 GFR/1.73 sq M.predicted among non-blacks MDRD (S/P/Bld) [Vol rate/Area] 58 mL/min/{1.73_m2} Low >60 [facility] Comment on above: mL/min/1.73m2 CKD-EP I Creatinine Equation (2020) Hematocrit Auto (Bld) [Volum e fraction]Ordered By: Jairon Medel on 05-01-2024 Hematocrit (Bld) [Volume fraction] 37.3 % 37-47 [facility] Hemoglobin measurementOrdere d By: Jairon Medel on 05-01-2024 Hemoglobin (Bld) [Mass/Vol] 11.3 g/dL Low 12.0-15.0 [facility] Immature granulocytes/100 WB C Auto (Bld)Ordered By: Jairon Medel on 05-01-2024 Immature granulocytes/100 WBC (Bld) 1.100 % High 0.0-0.9 [facility] Comment on above: IG% - Immature Granu locytes (promyelocytes, myelocytes and metamyelocytes) > 1% indicates that a LEFT SHIFT is Present. Lymphocytes Auto (Unsp spec) [#/Vol]Ordered By: Jairon Medel on 05-01-2024 Lymphocytes (Bld) [#/Vol] 1.90 10*3/uL 0.83-4.51 [facility] Lymphocytes/100 WBC Auto (Un sp spec)Ordered By: Jairon Medel on 05-01-2024 Lymphocytes/100 WBC (Bld) 35.5 % 19-41 [facility] MCV (mean corpuscular volume ) determinationOrdered By: Jairon Medel on 05-01-2024 MCV (RBC) [Entitic vol] 93.5 fL 81-99 [facility] Mean corpuscular hemoglobin (MCH) determinationOrdered By: Jairon Medel on 05-01-2024 MCH (RBC) [Entitic mass] 28.3 pg 27.0-32.0 [facility] Mean corpuscular hemoglobin concentration (MCHC) determinationOrdered By: Jairon Medel on 05-01-2024 MCHC (RBC) [Mass/Vol] 30.3 g/dL Low 32-36 [facility] Mean platelet volume determi nationOrdered By: Jairon Medel on 05-01-2024 Platelet mean volume (Bld) [Entitic vol] 10.2 fL 6.2-12.0 [facility] Monocyte percentageOrdered B y: Jairon Medel on 05-01-2024 Monocytes/100 WBC (Bld) 9.0 % 0-10 [facility] Neutrophil percentageOrdered By: Jairon Medel on 05-01-2024 Neutrophils/100 WBC (Bld) 50.7 % 47-70 [facility] Nucleated red blood cell per centageOrdered By: Jairon Medel on 05-01-2024 Nucleated RBC/100 WBC (Bld) [Ratio] 0 % 0-5 [facility] Platelet countOrdered By: Pooja Medel on 05-01-2024 Platelets (Bld) [#/Vol] 235 10*3/uL 150-450 [facility] Potassium (Unsp spec) [Mass/ Vol]Ordered By: Jairon Medel on 05-01-2024 Potassium [Moles/Vol] 4.3 mmol/L 3.3-5.1 [facility] Potassium measurement (mass/ volume)Ordered By: Jairon Medel on 05-01-2024 Potassium (Unsp spec) [Mass/Vol] 4.3 mmol/L 3.3-5.1 [facility] RBC Auto (Bld) [#/Vol]Ordere d By: Jairon Medel on 05-01-2024 RBC (Bld) [#/Vol] 3.99 10*6/uL Low 4.2-5.4 [facility] Serum creatinine measurement (mass/volume)Ordered By: Jairon Medel on 05-01-2024 Creatinine [Mass/Vol] 0.96 mg/dL 0.70-1.20 [facility] Serum glucose measurement (m ass/volume)Ordered By: Jairon Medel on 05-01-2024 Glucose [Mass/Vol] 89 mg/dL 70-99 [facility] Serum or plasma calcium krissy urement (mass/volume)Ordered By: Jairon Medel on 05-01-2024 Calcium [Mass/Vol] 9.8 mg/dL 7.6-11.0 [facility] Serum or plasma urea nitroge n measurement (mass/volume)Ordered By: Jairon Medel on 05-01-2024 Urea nitrogen [Mass/Vol] 17 mg/dL 4-19 [facility] Sodium levelOrdered By: Carrillo malcolmrajesh Gianfranco on 05-01-2024 Sodium [Moles/Vol] 141 mmol/L 133-145 [facility] White blood cell (WBC) count Ordered By: Jairon Medel on 05-01-2024 WBC (Bld) [#/Vol] 5.4 10*3/uL 4.4-11.0 [facility] Absolute lymphocyte countOrd ered By: Jairon Medel on 04-03-2024 Lymphocytes Auto (Unsp spec) [#/Vol] 1.70 10*3/uL 0.83-4.51 [facility] Absolute neutrophil countOrd ered By: Jairon Medel on 04-03-2024 Neutrophils (Bld) [#/Vol] 3.0 10*3/uL 2.0-7.7 [facility] Automated lymphocyte count a s percentage of total leukocytesOrdered By: Jairon Medel on 04-03-2024 Lymphocytes/100 WBC Auto (Unsp spec) 32.1 % 19-41 [facility] Basophil percentageOrdered B y: Jairon Medel on 04-03-2024 Basophils/100 WBC (Bld) 1.3 % High 0-1 [facility] Blood urea nitrogen (BUN)/cr eatinine ratioOrdered By: Jairon Medel on 04-03-2024 Urea nitrogen/Creatinine [Mass ratio] 21.1 mg/mg High 10-20 [facility] Carbon dioxide measurementOr dered By: Jairon Medel on 04-03-2024 CO2 [Moles/Vol] 27.0 mmol/L 21.0-32.0 [facility] Chloride measurementOrdered By: sreekanthavonmoremakenzie Medel on 04-03-2024 Chloride [Moles/Vol] 111 mmol/L High 98-107 [facility] Eosinophil percentageOrdered By: Jairon Medel on 04-03-2024 Eosinophils/100 WBC (Bld) 2.3 % 0-5 [facility] Erythrocyte distribution wid th (RBC) [Ratio]Ordered By: Jairon Medel on 04-03-2024 Erythrocyte distribution width (RBC) [Entitic vol] 43.2 fL 35.1-43.9 [facility] Erythrocyte distribution wid th ratioOrdered By: Jairon Medel on 04-03-2024 Erythrocyte distribution width (RBC) [Ratio] 13.2 % 11.6-14.6 [facility] Erythrocyte distribution wid th standard deviationOrdered By: Jairon Medel on 04-03-2024 Erythrocyte distribution width (RBC) [Ratio] 43.2 fl 35.1-43.9 [facility] Estimated glomerular filtrat ion rate (GFR) AmericanOrdered By: Jairon Medel on 04-03-2024 Estimated GFR (MDRD) Amer 72 mL/min >60 [facility] Comment on above: GFR Calc Glomerular filtration rate ( GFR) estimationOrdered By: Jairon Medel on 04-03-2024 Estimated GFR (MDRD) Non-Af Amer 59 mL/min Low >60 [facility] Comment on above: Non- GFR Calc GFR/1.73 sq M.predicted among non-blacks MDRD (S/P/Bld) [Vol rate/Area] 59 mL/min/{1.73_m2} Low >60 [facility] Comment on above: Non- GFR Calc Glucose measurementOrdered B y: Jairon Medel on 04-03-2024 Glucose [Mass/Vol] 93 mg/dL 74-106 [facility] Hematocrit Auto (Bld) [Volum e fraction]Ordered By: Jairon Medel on 04-03-2024 Hematocrit (Bld) [Volume fraction] 31.6 % Low 37-47 [facility] Hemoglobin measurementOrdere d By: Jairon Medel on 04-03-2024 Hemoglobin (Bld) [Mass/Vol] 9.7 g/dL Low 12.0-15.0 [facility] Immature granulocytes/100 WB C Auto (Bld)Ordered By: margarette Medel on 04-03-2024 Immature granulocytes/100 WBC (Bld) 0.200 % 0.0-0.9 [facility] Comment on above: IG% - Immature Granu locytes (promyelocytes, myelocytes and metamyelocytes) > 1% indicates that a LEFT SHIFT is Present. Lymphocytes Auto (Unsp spec) [#/Vol]Ordered By: Jairon Medel on 04-03-2024 Lymphocytes (Bld) [#/Vol] 1.70 10*3/uL 0.83-4.51 [facility] Lymphocytes/100 WBC Auto (Un sp spec)Ordered By: Jairon Medel on 04-03-2024 Lymphocytes/100 WBC (Bld) 32.1 % 19-41 [facility] MCV (mean corpuscular volume ) determinationOrdered By: Jairon Medel on 04-03-2024 MCV (RBC) [Entitic vol] 91.1 fL 81-99 [facility] Mean corpuscular hemoglobin (MCH) determinationOrdered By: Jairon Medel on 04-03-2024 MCH (RBC) [Entitic mass] 28.0 pg 27.0-32.0 [facility] Mean corpuscular hemoglobin concentration (MCHC) determinationOrdered By: Jairon Medel on 04-03-2024 MCHC (RBC) [Mass/Vol] 30.7 g/dL Low 32-36 [facility] Mean platelet volume determi nationOrdered By: Jairon Medel on 04-03-2024 Platelet mean volume (Bld) [Entitic vol] 9.9 fL 6.2-12.0 [facility] Monocyte percentageOrdered B y: Jairno Medel on 04-03-2024 Monocytes/100 WBC (Bld) 8.3 % 0-10 [facility] Neutrophil percentageOrdered By: Jairon Medel on 04-03-2024 Neutrophils/100 WBC (Bld) 55.8 % 47-70 [facility] Nucleated red blood cell per centageOrdered By: Jairon Medel on 04-03-2024 Nucleated RBC/100 WBC (Bld) [Ratio] 0 % 0-5 [facility] Platelet countOrdered By: Pooja sreekanthbraden Medel on 04-03-2024 Platelets (Bld) [#/Vol] 229 10*3/uL 150-450 [facility] Potassium measurementOrdered By: Jairon Medel on 04-03-2024 Potassium [Moles/Vol] 4.4 mmol/L 3.5-5.1 [facility] RBC Auto (Bld) [#/Vol]Ordere d By: Jairon Medel on 04-03-2024 RBC (Bld) [#/Vol] 3.47 10*6/uL Low 4.2-5.4 [facility] Serum anion gap measurementO rdered By: Jairon Medel on 04-03-2024 Anion gap [Moles/Vol] 6 mmol/L 5-15 [facility] Serum or plasma calcium krissy urement (mass/volume)Ordered By: Jairon Medel on 04-03-2024 Calcium [Mass/Vol] 9.4 mg/dL 8.5-10.1 [facility] Serum or plasma creatinine m easurement (mass/volume)Ordered By: Jairon Medel on 04-03-2024 Creatinine [Mass/Vol] 0.95 mg/dL 0.55-1.02 [facility] Comment on above: The validity of the calculated GFR & GFRAA in patients over 70 years has not been determined. Clinical correlation is essential. Serum or plasma urea nitroge n measurement (mass/volume)Ordered By: Jairon Medel on 04-03-2024 Urea nitrogen [Mass/Vol] 20 mg/dL High 7-18 [facility] Sodium levelOrdered By: Carrillo braden Gianfranco on 04-03-2024 Sodium [Moles/Vol] 144 mmol/L 136-145 [facility] White blood cell (WBC) count Ordered By: Jairon Medel on 04-03-2024 WBC (Bld) [#/Vol] 5.3 10*3/uL 4.4-11.0 [facility] Absolute lymphocyte countOrd ered By: Jairon Medel on 03-27-2024 Lymphocytes Auto (Unsp spec) [#/Vol] 2.06 10*3/uL 0.83-4.51 [facility] Absolute neutrophil countOrd ered By: Jairon Medel on 03-27-2024 Neutrophils (Bld) [#/Vol] 3.3 10*3/uL 2.0-7.7 [facility] Automated lymphocyte count a s percentage of total leukocytesOrdered By: Jairon Medel on 03-27-2024 Lymphocytes/100 WBC Auto (Unsp spec) 33.5 % 19-41 [facility] Basophil percentageOrdered B y: Jairon Medel on 03-27-2024 Basophils/100 WBC (Bld) 0.8 % 0-1 [facility] Blood urea nitrogen (BUN)/cr eatinine ratioOrdered By: Jairon Medel on 03-27-2024 Urea nitrogen/Creatinine [Mass ratio] 19.3 mg/mg 10-20 [facility] Carbon dioxide measurementOr dered By: Jairon Medel on 03-27-2024 CO2 [Moles/Vol] 27.0 mmol/L 21.0-32.0 [facility] Chloride measurementOrdered By: Jairon Medel on 03-27-2024 Chloride [Moles/Vol] 110 mmol/L High 98-107 [facility] Eosinophil percentageOrdered By: Jairon Medel on 03-27-2024 Eosinophils/100 WBC (Bld) 2.3 % 0-5 [facility] Erythrocyte distribution wid th (RBC) [Ratio]Ordered By: Jairon Medel on 03-27-2024 Erythrocyte distribution width (RBC) [Entitic vol] 43.7 fL 35.1-43.9 [facility] Erythrocyte distribution wid th ratioOrdered By: Jairon Medel on 03-27-2024 Erythrocyte distribution width (RBC) [Ratio] 13.2 % 11.6-14.6 [facility] Erythrocyte distribution wid th standard deviationOrdered By: Jairon Medel on 03-27-2024 Erythrocyte distribution width (RBC) [Ratio] 43.7 fl 35.1-43.9 [facility] Estimated glomerular filtrat ion rate (GFR) AmericanOrdered By: Jairon Medel on 03-27-2024 Estimated GFR (MDRD) Amer 69 mL/min >60 [facility] Comment on above: GFR Calc Glomerular filtration rate ( GFR) estimationOrdered By: Jairon Medel on 03-27-2024 Estimated GFR (MDRD) Non-Af Amer 57 mL/min Low >60 [facility] Comment on above: Non- GFR Calc GFR/1.73 sq M.predicted among non-blacks MDRD (S/P/Bld) [Vol rate/Area] 57 mL/min/{1.73_m2} Low >60 [facility] Comment on above: Non- GFR Calc Glucose measurementOrdered B y: Jairon Medel on 03-27-2024 Glucose [Mass/Vol] 89 mg/dL 74-106 [facility] Hematocrit Auto (Bld) [Volum e fraction]Ordered By: Jairon Medel on 03-27-2024 Hematocrit (Bld) [Volume fraction] 30.9 % Low 37-47 [facility] Hemoglobin measurementOrdere d By: Jairon Medel on 03-27-2024 Hemoglobin (Bld) [Mass/Vol] 9.6 g/dL Low 12.0-15.0 [facility] Immature granulocytes/100 WB C Auto (Bld)Ordered By: Jaiorn Medel on 03-27-2024 Immature granulocytes/100 WBC (Bld) 0.500 % 0.0-0.9 [facility] Comment on above: IG% - Immature Granu locytes (promyelocytes, myelocytes and metamyelocytes) > 1% indicates that a LEFT SHIFT is Present. Lymphocytes Auto (Unsp spec) [#/Vol]Ordered By: Jarion Medel on 03-27-2024 Lymphocytes (Bld) [#/Vol] 2.06 10*3/uL 0.83-4.51 [facility] Lymphocytes/100 WBC Auto (Un sp spec)Ordered By: Jairon Medel on 03-27-2024 Lymphocytes/100 WBC (Bld) 33.5 % 19-41 [facility] MCV (mean corpuscular volume ) determinationOrdered By: Jairon Medel on 03-27-2024 MCV (RBC) [Entitic vol] 90.1 fL 81-99 [facility] Mean corpuscular hemoglobin (MCH) determinationOrdered By: Jairon Medel on 03-27-2024 MCH (RBC) [Entitic mass] 28.0 pg 27.0-32.0 [facility] Mean corpuscular hemoglobin concentration (MCHC) determinationOrdered By: Jairon Medel on 03-27-2024 MCHC (RBC) [Mass/Vol] 31.1 g/dL Low 32-36 [facility] Mean platelet volume determi nationOrdered By: Jairon Medel on 03-27-2024 Platelet mean volume (Bld) [Entitic vol] 10.2 fL 6.2-12.0 [facility] Monocyte percentageOrdered B y: Jairon Medel on 03-27-2024 Monocytes/100 WBC (Bld) 9.6 % 0-10 [facility] Neutrophil percentageOrdered By: Jairon Medel on 03-27-2024 Neutrophils/100 WBC (Bld) 53.3 % 47-70 [facility] Nucleated red blood cell per centageOrdered By: Jairon Medel on 03-27-2024 Nucleated RBC/100 WBC (Bld) [Ratio] 0 % 0-5 [facility] Platelet countOrdered By: Pooja Medel on 03-27-2024 Platelets (Bld) [#/Vol] 235 10*3/uL 150-450 [facility] Potassium measurementOrdered By: Jairon Medel on 03-27-2024 Potassium [Moles/Vol] 4.0 mmol/L 3.5-5.1 [facility] RBC Auto (Bld) [#/Vol]Ordere d By: Jairon Medel on 03-27-2024 RBC (Bld) [#/Vol] 3.43 10*6/uL Low 4.2-5.4 [facility] Serum anion gap measurementO rdered By: Jairon Medel on 03-27-2024 Anion gap [Moles/Vol] 6 mmol/L 5-15 [facility] Serum or plasma calcium krissy urement (mass/volume)Ordered By: Jairon Medel on 03-27-2024 Calcium [Mass/Vol] 9.3 mg/dL 8.5-10.1 [facility] Serum or plasma creatinine m easurement (mass/volume)Ordered By: Jairon Medel on 03-27-2024 Creatinine [Mass/Vol] 0.98 mg/dL 0.55-1.02 [facility] Comment on above: The validity of the calculated GFR & GFRAA in patients over 70 years has not been determined. Clinical correlation is essential. Serum or plasma urea nitroge n measurement (mass/volume)Ordered By: Jairon Medel on 03-27-2024 Urea nitrogen [Mass/Vol] 19 mg/dL High 7-18 [facility] Sodium levelOrdered By: Carrillo Medel on 03-27-2024 Sodium [Moles/Vol] 143 mmol/L 136-145 [facility] White blood cell (WBC) count Ordered By: Jairon Medel on 03-27-2024 WBC (Bld) [#/Vol] 6.2 10*3/uL 4.4-11.0 [facility] 76-JP-Ldyealt DOrdered By: Sophia claudia Gianfranco on 02-28-2024 Vitamin D 25-Hydroxy 60.8 ng/mL [facility] Comment on above: Vitamin D 25(OH) Sta tus Range Deficiency <20 ng/mL (50nmol/L) Insufficiency 20 - 30 ng/mL (50 - 75 nmol/L) Sufficiency 30 - 100 ng/mL (75 - 250 nmol/L) Toxicity >100 ng/mL (>250 nmol/L) Absolute lymphocyte countOrd ered By: Jairon Medel on 02-28-2024 Lymphocytes Auto (Unsp spec) [#/Vol] 1.75 10*3/uL 0.83-4.51 [facility] Absolute neutrophil countOrd ered By: Jairon Medel on 02-28-2024 Neutrophils (Bld) [#/Vol] 3.9 10*3/uL 2.0-7.7 [facility] Albumin to globulin ratioOrd ered By: Poojasreekanthmahadmakenzie Medel on 02-28-2024 Albumin/Globulin [Mass ratio] 1.0 {ratio} 0.9-2.4 [facility] Automated lymphocyte count a s percentage of total leukocytesOrdered By: Jairon Medel on 02-28-2024 Lymphocytes/100 WBC Auto (Unsp spec) 27.3 % 19-41 [facility] Basophil percentageOrdered B y: Jairon Medel on 02-28-2024 Basophils/100 WBC (Bld) 0.8 % 0-1 [facility] Bilirubin, totalOrdered By: Poojamargarette Medel on 02-28-2024 Bilirubin [Mass/Vol] 0.20 mg/dL 0.20-1.00 [facility] Comment on above: For patients on eltr ombopag therapy, use of Dimension [place] TBIL is not recommended. Blood urea nitrogen (BUN)/cr eatinine ratioOrdered By: Jairon Medel on 02-28-2024 Urea nitrogen/Creatinine [Mass ratio] 24.1 mg/mg High 10-20 [facility] Carbon dioxide measurementOr dered By: Jairon Medel on 02-28-2024 CO2 [Moles/Vol] 27.0 mmol/L 21.0-32.0 [facility] Chloride measurementOrdered By: Jairon Medel on 02-28-2024 Chloride [Moles/Vol] 111 mmol/L High 98-107 [facility] Eosinophil percentageOrdered By: Jairon Medel on 02-28-2024 Eosinophils/100 WBC (Bld) 2.3 % 0-5 [facility] Erythrocyte distribution wid th (RBC) [Ratio]Ordered By: Jairon Medel on 02-28-2024 Erythrocyte distribution width (RBC) [Entitic vol] 43.7 fL 35.1-43.9 [facility] Erythrocyte distribution wid th ratioOrdered By: Jairon Medel on 02-28-2024 Erythrocyte distribution width (RBC) [Ratio] 13.4 % 11.6-14.6 [facility] Erythrocyte distribution wid th standard deviationOrdered By: Jairon Medel on 02-28-2024 Erythrocyte distribution width (RBC) [Ratio] 43.7 fl 35.1-43.9 [facility] Estimated glomerular filtrat ion rate (GFR) AmericanOrdered By: Jairon Medel on 02-28-2024 Estimated GFR (MDRD) Amer 72 mL/min >60 [facility] Comment on above: GFR Calc Glomerular filtration rate ( GFR) estimationOrdered By: Jairon Medel on 02-28-2024 Estimated GFR (MDRD) Non-Af Amer 59 mL/min Low >60 [facility] Comment on above: Non- GFR Calc GFR/1.73 sq M.predicted among non-blacks MDRD (S/P/Bld) [Vol rate/Area] 59 mL/min/{1.73_m2} Low >60 [facility] Comment on above: Non- GFR Calc Glucose measurementOrdered B y: Jairon Medel on 02-28-2024 Glucose [Mass/Vol] 93 mg/dL 74-106 [facility] Hematocrit Auto (Bld) [Volum e fraction]Ordered By: Jairon Medel on 02-28-2024 Hematocrit (Bld) [Volume fraction] 32.1 % Low 37-47 [facility] Hemoglobin measurementOrdere d By: Jairon Medel on 02-28-2024 Hemoglobin (Bld) [Mass/Vol] 9.9 g/dL Low 12.0-15.0 [facility] High density lipoprotein (HD L) measurementOrdered By: Jairon Medel on 02-28-2024 Cholesterol in HDL [Mass/Vol] 58 mg/dL >40 [facility] Comment on above: The drugs N-Acetylcy steine and Metamizole may falsely depress this assay. Reference Range HDL <40 mg/dL Low HDL Cholesterol HDL >or= 60 mg/dL High HDL Cholesterol Immature granulocytes/100 WB C Auto (Bld)Ordered By: Jairon Medel on 02-28-2024 Immature granulocytes/100 WBC (Bld) 0.300 % 0.0-0.9 [facility] Comment on above: IG% - Immature Granu locytes (promyelocytes, myelocytes and metamyelocytes) > 1% indicates that a LEFT SHIFT is Present. Laboratory - Chemistry and C hemistry - challengeOrdered By: Jairon Medel on 02-28-2024 AST [Catalytic activity/Vol] 15 U/L 15-37 [facility] Low density lipoprotein (LDL ) cholesterol measurementOrdered By: Jairon Medel on 02-28-2024 Cholesterol in LDL [Mass/Vol] 67 mg/dL 0-130 [facility] Lymphocytes Auto (Unsp spec) [#/Vol]Ordered By: Jairon Medel on 02-28-2024 Lymphocytes (Bld) [#/Vol] 1.75 10*3/uL 0.83-4.51 [facility] Lymphocytes/100 WBC Auto (Un sp spec)Ordered By: Jairon Medel on 02-28-2024 Lymphocytes/100 WBC (Bld) 27.3 % 19-41 [facility] MCV (mean corpuscular volume ) determinationOrdered By: Jairon Medel on 02-28-2024 MCV (RBC) [Entitic vol] 89.4 fL 81-99 [facility] Mean corpuscular hemoglobin (MCH) determinationOrdered By: Jairon Medel on 02-28-2024 MCH (RBC) [Entitic mass] 27.6 pg 27.0-32.0 [facility] Mean corpuscular hemoglobin concentration (MCHC) determinationOrdered By: Jairon Medel on 02-28-2024 MCHC (RBC) [Mass/Vol] 30.8 g/dL Low 32-36 [facility] Mean platelet volume determi nationOrdered By: Jairon Medel on 02-28-2024 Platelet mean volume (Bld) [Entitic vol] 9.6 fL 6.2-12.0 [facility] Monocyte percentageOrdered B y: Jairon Medel on 02-28-2024 Monocytes/100 WBC (Bld) 8.7 % 0-10 [facility] Neutrophil percentageOrdered By: Jairon Medel on 02-28-2024 Neutrophils/100 WBC (Bld) 60.6 % 47-70 [facility] Nucleated red blood cell per centageOrdered By: Jairon Medel on 02-28-2024 Nucleated RBC/100 WBC (Bld) [Ratio] 0 % 0-5 [facility] Platelet countOrdered By: Pooja Medel on 02-28-2024 Platelets (Bld) [#/Vol] 261 10*3/uL 150-450 [facility] Potassium measurementOrdered By: Jairon Medel on 02-28-2024 Potassium [Moles/Vol] 4.1 mmol/L 3.5-5.1 [facility] RBC Auto (Bld) [#/Vol]Ordere d By: Jairon Medel on 02-28-2024 RBC (Bld) [#/Vol] 3.59 10*6/uL Low 4.2-5.4 [facility] Serum anion gap measurementO rdered By: Jairon Medel on 02-28-2024 Anion gap [Moles/Vol] 4 mmol/L Low 5-15 [facility] Serum globulin measurementOr dered By: Jairon Medel on 02-28-2024 Globulin (S) [Mass/Vol] 2.9 g/dL 2.2-4.2 [facility] Serum or plasma alanine crane otransferase (ALT) measurementOrdered By: Jairon Medel on 02-28-2024 ALT [Catalytic activity/Vol] 17 U/L 13-56 [facility] Serum or plasma albumin krissy urement (mass/volume)Ordered By: Jairon Medel on 02-28-2024 Albumin [Mass/Vol] 2.8 g/dL Low 3.2-5.0 [facility] Serum or plasma alkaline luis sphatase measurementOrdered By: Jairon Medel on 02-28-2024 ALP [Catalytic activity/Vol] 63 U/L 45-117 [facility] Serum or plasma calcium krissy urement (mass/volume)Ordered By: Jairon Medel on 02-28-2024 Calcium [Mass/Vol] 9.6 mg/dL 8.5-10.1 [facility] Serum or plasma cholesterol measurement (mass/volume)Ordered By: Jairon Medel on 02-28-2024 Cholesterol [Mass/Vol] 134 mg/dL <[address] [facility] Comment on above: <200 mg/dL Desirable 200-240 mg/dL Borderline >240 mg/dL High Risk Serum or plasma creatinine m easurement (mass/volume)Ordered By: Jairon Medel on 02-28-2024 Creatinine [Mass/Vol] 0.95 mg/dL 0.55-1.02 [facility] Comment on above: The validity of the calculated GFR & GFRAA in patients over 70 years has not been determined. Clinical correlation is essential. Serum or plasma urea nitroge n measurement (mass/volume)Ordered By: Jairon Medel on 02-28-2024 Urea nitrogen [Mass/Vol] 23 mg/dL High 7-18 [facility] Sodium levelOrdered By: Carrillo Medel on 02-28-2024 Sodium [Moles/Vol] 143 mmol/L 136-145 [facility] Total proteinOrdered By: Masoud Medel on 02-28-2024 Protein [Mass/Vol] 5.7 g/dL Low 6.4-8.2 [facility] Triglycerides measurementOrd ered By: Jairon Medel on 02-28-2024 Triglyceride [Mass/Vol] 43 mg/dL <199 [facility] Comment on above: The drugs N-Acetylcy steine and Metamizole may falsely depress this assay.Serum Triglycerides Reference Interval Normal <150 mg/dL Borderline high 150 - 199 mg/dL High 200 - 499 mg/dL Very High > or = 500 mg/dL Valproate levelOrdered By: Sophia claudia Cortezjenifersophia on 02-28-2024 Valproic Acid (Depakene) Level 26 ug/mL Low 50-100 [facility] Very low density lipoprotein (VLDL) cholesterol measurementOrdered By: Jairon Cortezjenifersophia on 02-28-2024 Very low density lipoprotein (VLDL) cholesterol measurement 9 mg/dL 5-40 [facility] VLDL Cholesterol 9 mg/dL 5-40 [facility] White blood cell (WBC) count Ordered By: Carrillomahadmakenzie Medel on 02-28-2024 WBC (Bld) [#/Vol] 6.4 10*3/uL 4.4-11.0 [facility] .Auto Diffon 02-10-2024 Basophil, Absolute 0.1 10 3/mcL Normal 0.0-0.2 [facility] Comment on above: Performed By: #### B MP, MG, ANEU, ADIFF, CBC, GFR ####[address] [place], [place] [address] Basophils/100 WBC (Bld) 1.1 % Normal 0.0-2.5 [facility] Comment on above: Performed By: #### B MP, MG, ANEU, ADIFF, CBC, GFR ####[address] [place], [place] [address] Eosinophil, Absolute 0.1 10 3/mcL Normal 0.0-0.7 [facility] Comment on above: Performed By: #### B MP, MG, ANEU, ADIFF, CBC, GFR ####[address] [place], [place] [address] Eosinophils/100 WBC (Bld) 1.8 % Normal 0.0-7.0 [facility] Comment on above: Performed By: #### B MP, MG, ANEU, ADIFF, CBC, GFR ####[address] [place], [place] [address] Lymphocyte, Absolute 1.4 10 3/mcL Normal 0.9-4.3 [facility] Comment on above: Performed By: #### B MP, MG, ANEU, ADIFF, CBC, GFR ####[address] [address] Lymphocytes/100 WBC (Bld) 25.4 % Normal 20.0-40.0 [facility] Comment on above: Performed By: #### B MP, MG, ANEU, ADIFF, CBC, GFR ####[address] [place], [place] [address] Monocyte, Absolute 0.4 10 3/mcL Normal 0.1-1.4 [facility] Comment on above: Performed By: #### B MP, MG, ANEU, ADIFF, CBC, GFR ####[address] [address] Monocytes/100 WBC (Bld) 7.4 % Normal 2.0-13.0 [facility] Comment on above: Performed By: #### B MP, MG, ANEU, ADIFF, CBC, GFR ####[address] [address] Neutrophils/100 WBC (Bld) 64.3 % Normal 50.0-75.0 [facility] Comment on above: Performed By: #### B MP, MG, ANEU, ADIFF, CBC, GFR ####[address] [address] .GFRon 02-10-2024 GFR 73 ml/min/1.73sqm Normal [facility] Comment on above: Result Comment: GFR Population [...] B MP, MG, ANEU, ADIFF, CBC, GFR ####[address] [place], [place] [address] GFR Non- 60 ml/min/1.73sqm Normal [facility] Comment on above: Result Comment: GFR Population [...] B MP, MG, ANEU, ADIFF, CBC, GFR ####[address] [place], [place] [address] .NEUABSon 02-10-2024 Neutrophil, Absolute 3.7 10 3/mcL Normal 2.3-8.1 [facility] Comment on above: Performed By: #### B MP, MG, ANEU, ADIFF, CBC, GFR ####[address] [place], [place] [address] BMPon 02-10-2024 BUN/Creatinine Ratio 25 ratio Normal 7-27 [facility] Comment on above: Performed By: #### B MP, MG, ANEU, ADIFF, CBC, GFR ####[address] [address] Calcium [Mass/Vol] 10.0 mg/dL Normal 8.4-10.2 [facility] Comment on above: Performed By: #### B MP, MG, ANEU, ADIFF, CBC, GFR ####[address] [place], [place] [address] Chloride [Moles/Vol] 107 mmol/L Normal 98-107 [facility] Comment on above: Performed By: #### B MP, MG, ANEU, ADIFF, CBC, GFR ####[address] [address] CO2 [Moles/Vol] 30 mmol/L Normal 23-31 [facility] Comment on above: Performed By: #### B MP, MG, ANEU, ADIFF, CBC, GFR ####[address] [address] Creatinine [Mass/Vol] 0.89 mg/dL Normal 0.55-1.02 [facility] Comment on above: Result Comment: Test ing performed on Siemens Dimension EXL analyzer using a modified kinetic Dora technique. Performed By: #### B MP, MG, ANEU, ADIFF, CBC, GFR ####[address] [address] Electrolyte Balance 8.0 mEq/L Normal 4.0-15.0 [facility] Comment on above: Performed By: #### B MP, MG, ANEU, ADIFF, CBC, GFR ####[address] [address] Glucose [Mass/Vol] 111 mg/dL High 83-110 [facility] Comment on above: Performed By: #### B MP, MG, ANEU, ADIFF, CBC, GFR ####[address] [address] Potassium [Moles/Vol] 4.0 mmol/L Normal 3.5-5.1 [facility] Comment on above: Performed By: #### B MP, MG, ANEU, ADIFF, CBC, GFR ####[address] [place] [address] Sodium [Moles/Vol] 145 mmol/L Normal 136-145 [facility] Comment on above: Performed By: #### B MP, MG, ANEU, ADIFF, CBC, GFR ####[address] [place] [address] Urea nitrogen [Mass/Vol] 22 mg/dL High 7-18 [facility] Comment on above: Performed By: #### B MP, MG, ANEU, ADIFF, CBC, GFR ####[address] [place] [address] CBCon 02-10-2024 Erythrocyte distribution width (RBC) [Ratio] 14.1 % Normal 11.5-15.5 [facility] Comment on above: Performed By: #### B MP, MG, ANEU, ADIFF, CBC, GFR ####[address] [place] [address] Hematocrit (Bld) [Volume fraction] 33.2 % Low 34.0-46.0 [facility] Comment on above: Performed By: #### B MP, MG, ANEU, ADIFF, CBC, GFR ####[place] [address] Hgb 11.3 G/dL Low 12.0-16.0 [facility] Comment on above: Performed By: #### B MP, MG, ANEU, ADIFF, CBC, GFR ####[address] [place] [address] MCH (RBC) [Entitic mass] 28.8 pg Normal 27.0-33.0 [facility] Comment on above: Performed By: #### B MP, MG, ANEU, ADIFF, CBC, GFR ####[address] [place] [address] MCHC 34.1 G/dL Normal 32.0-36.0 [facility] Comment on above: Performed By: #### B MP, MG, ANEU, ADIFF, CBC, GFR ####[place] [address] [place] [id number] MCV (RBC) [Entitic vol] 84.5 fL Normal 80.0-99.0 [facility] Comment on above: Performed By: #### B MP, MG, ANEU, ADIFF, CBC, GFR ####[address] [place], [place] [address] Platelet 272 10 3/mcL Normal 150-450 [facility] Comment on above: Performed By: #### B MP, MG, ANEU, ADIFF, CBC, GFR ####[address] [place], [place] [address] Platelet mean volume (Bld) [Entitic vol] 7.7 fL Normal 6.6-10.5 [facility] Comment on above: Performed By: #### B MP, MG, ANEU, ADIFF, CBC, GFR ####[address] [place], [place] [address] RBC 3.93 10 6/mcL Low 4.10-5.30 [facility] Comment on above: Performed By: #### B MP, MG, ANEU, ADIFF, CBC, GFR ####[address] [place], [place] [address] WBC 5.7 10 3/mcL Normal 4.5-10.8 [facility] Comment on above: Performed By: #### B MP, MG, ANEU, ADIFF, CBC, GFR ####[facility] [place], [place] [address] LABORATORYOrdered By: SYSTEM SYSTEM on 02-10-2024 Basophils [...] 02-10-2024 Magnesium [Mass/Vol] 1.7 mg/dL Low 1.8-2.4 [facility] Comment on above: Performed By: #### B MP, MG, ANEU, ADIFF, CBC, GFR ####[address] [place], [place] [address] .Auto Diffon 02-09-2024 Basophil, Absolute 0.1 10 3/mcL Normal 0.0-0.2 [facility] Comment on above: Performed By: #### B JEISON, MDW, GFR, ANEU, TROPHS, PBNP, CBC, ADIFF ####[address] [place], [place] [address] Basophils/100 WBC (Bld) 1.1 % Normal 0.0-2.5 [facility] Comment on above: Performed By: #### B JEISON, W, GFR, ANEU, TROPHS, PBNP, CBC, ADIFF ####[address] [place], [place] [address] Eosinophil, Absolute 0.1 10 3/mcL Normal 0.0-0.7 [facility] Comment on above: Performed By: #### B JEISON, W, GFR, ANEU, TROPHS, PBNP, CBC, ADIFF ####[address] [place], [place] [address] Eosinophils/100 WBC (Bld) 1.6 % Normal 0.0-7.0 [facility] Comment on above: Performed By: #### B JEISON, MDW, GFR, ANEU, TROPHS, PBNP, CBC, ADIFF ####[address] [place], [place] [address] Lymphocyte, Absolute 2.2 10 3/mcL Normal 0.9-4.3 [facility] Comment on above: Performed By: #### B JEISON, NAFISA, GFR, ANEU, TROPHS, PBNP, CBC, ADIFF ####[facility] [place], [place] [address] Lymphocytes/100 WBC (Bld) 29.4 % Normal 20.0-40.0 [facility] Comment on above: Performed By: #### B JEISON, W, GFR, ANEU, TROPHS, PBNP, CBC, ADIFF ####[facility] [place], [place] [address] Monocyte, Absolute 0.7 10 3/mcL Normal 0.1-1.4 [facility] Comment on above: Performed By: #### B JEISON, NAFISA, GFR, ANEU, TROPHS, PBNP, CBC, ADIFF ####[address] [place], [place] [address] Monocytes/100 WBC (Bld) 9.6 % Normal 2.0-13.0 [facility] Comment on above: Performed By: #### B NAFISA MCHUGH, GFR, ANEU, TROPHS, PBNP, CBC, ADIFF ####[address] [place], [place] [address] Neutrophils/100 WBC (Bld) 58.3 % Normal 50.0-75.0 [facility] Comment on above: Performed By: #### B NAFISA MCHUGH, GFR, ANEU, TROPHS, PBNP, CBC, ADIFF ####[facility] [place], [place] [address] .GFRon 02-09-2024 GFR 67 ml/min/1.73sqm Normal [facility] Comment on above: Result Comment: GFR Population [...] GFR, ANEU, TROPHS, PBNP, CBC, ADIFF ####Jerrell [address] [place], [place] [address] GFR Non- 55 ml/min/1.73sqm Normal [facility] Comment on above: Result Comment: GFR Population [...] MDW, GFR, ANEU, TROPHS, PBNP, CBC, ADIFF ####Diagonal [address] [place], [place] [address] .MDWon 02-09-2024 Monocyte Distribution Width 17.09 Normal 0.00-20.00 [facility] Comment on above: Result Comment: For ED adult patients suspected of sepsis, MDW<=20.0 does not rule out sepsis or risk of sepsis Performed By: #### B MP, MDW, GFR, ANEU, TROPHS, PBNP, CBC, ADIFF ####[address] [place], [place] [address] .NEUABSon 02-09-2024 Neutrophil, Absolute 4.4 10 3/mcL Normal 2.3-8.1 [facility] Comment on above: Performed By: #### B MP, MDW, GFR, ANEU, TROPHS, PBNP, CBC, ADIFF ####[address] [place], [place] [address] BMPon 02-09-2024 BUN/Creatinine Ratio 26 ratio Normal 7-27 [facility] Comment on above: Performed By: #### B NAFISA MCHUGH, GFR, ANEU, TROPHS, PBNP, CBC, ADIFF ####Jerrell [address] [place], [place] [address] Calcium [Mass/Vol] 10.4 mg/dL High 8.4-10.2 [facility] Comment on above: Performed By: #### B NAFISA MCHUGH, GFR, ANEU, TROPHS, PBNP, CBC, ADIFF ####[address] [place], [place] [address] Chloride [Moles/Vol] 104 mmol/L Normal 98-107 [facility] Comment on above: Performed By: #### B NAFISA MCHUGH, GFR, ANEU, TROPHS, PBNP, CBC, ADIFF ####Jer[address] [place], [place] [address] CO2 [Moles/Vol] 30 mmol/L Normal 23-31 [facility] Comment on above: Performed By: #### B NAFISA MCHUGH, GFR, ANEU, TROPHS, PBNP, CBC, ADIFF ####[address] [place], [place] [address] Creatinine [Mass/Vol] 0.96 mg/dL Normal 0.55-1.02 [facility] Comment on above: Result Comment: Test ing performed on Siemens Dimension EXL analyzer using a modified kinetic Dora technique. Performed By: #### B NAFISA MCHUGH, GFR, ANEU, TROPHS, PBNP, CBC, ADIFF ####[address] [place], [place] [address] Electrolyte Balance 10.0 mEq/L Normal 4.0-15.0 [facility] Comment on above: Performed By: #### B NAFISA MCHUGH, GFR, ANEU, TROPHS, PBNP, CBC, ADIFF ####[address] [place], [place] [address] Glucose [Mass/Vol] 108 mg/dL Normal 83-110 [facility] Comment on above: Performed By: #### B NAFISA MCHUGH, GFR, ANEU, TROPHS, PBNP, CBC, ADIFF ####[address] [place], [place] [address] Potassium [Moles/Vol] 3.6 mmol/L Normal 3.5-5.1 [facility] Comment on above: Performed By: #### B NAFISA MCHUGH, GFR, ANEU, TROPHS, PBNP, CBC, ADIFF ####Jer[address] [place], [place] [address] Sodium [Moles/Vol] 144 mmol/L Normal 136-145 [facility] Comment on above: Performed By: #### B NAFISA MCHUGH, GFR, ANEU, TROPHS, PBNP, CBC, ADIFF ####Jer[address] [place], [place] [address] Urea nitrogen [Mass/Vol] 25 mg/dL High 7-18 [facility] Comment on above: Performed By: #### B NAFISA MCHUGH, GFR, ANEU, TROPHS, PBNP, CBC, ADIFF ####Jer[address] [place], [place] [address] CBCon 02-09-2024 Erythrocyte distribution width (RBC) [Ratio] 14.0 % Normal 11.5-15.5 [facility] Comment on above: Performed By: #### B NAFISA MCHUGH, GFR, ANEU, TROPHS, PBNP, CBC, ADIFF ####[facility] [place], [place] [address] Hematocrit (Bld) [Volume fraction] 34.7 % Normal 34.0-46.0 [facility] Comment on above: Performed By: #### B NAFISA MCHUGH, GFR, ANEU, TROPHS, PBNP, CBC, ADIFF ####Jer[address] [place], [place] [address] Hgb 11.7 G/dL Low 12.0-16.0 [facility] Comment on above: Performed By: #### B NAFISA MCHUGH, GFR, ANEU, TROPHS, PBNP, CBC, ADIFF ####Jer[address] [place], [place] [address] MCH (RBC) [Entitic mass] 28.7 pg Normal 27.0-33.0 [facility] Comment on above: Performed By: #### B NAFISA MCHUGH, GFR, ANEU, TROPHS, PBNP, CBC, ADIFF ####Jer[address] [place], [place] [address] MCHC 33.7 G/dL Normal 32.0-36.0 [facility] Comment on above: Performed By: #### B NAFISA MCHUGH, GFR, ANEU, TROPHS, PBNP, CBC, ADIFF ####Jer[address] [place], [place] [address] MCV (RBC) [Entitic vol] 85.0 fL Normal 80.0-99.0 [facility] Comment on above: Performed By: #### B NAFISA MCHUGH, GFR, ANEU, TROPHS, PBNP, CBC, ADIFF ####Jer[address] [place], [place] [address] Platelet 266 10 3/mcL Normal 150-450 [facility] Comment on above: Performed By: #### B NAFISA MCHUGH, GFR, ANEU, TROPHS, PBNP, CBC, ADIFF ####Jer[address] [place], [place] [address] Platelet mean volume (Bld) [Entitic vol] 7.4 fL Normal 6.6-10.5 [facility] Comment on above: Performed By: #### B NAFISA MCHUGH, GFR, ANEU, TROPHS, PBNP, CBC, ADIFF ####[address] [place], [place] [address] RBC 4.08 10 6/mcL Low 4.10-5.30 [facility] Comment on above: Performed By: #### B NAFISA MCHUGH, GFR, ANEU, TROPHS, PBNP, CBC, ADIFF ####[address] [place], [place] [address] WBC 7.6 10 3/mcL Normal 4.5-10.8 [facility] Comment on above: Performed By: #### B MP, MDW, GFR, ANEU, TROPHS, PBNP, CBC, ADIFF ####[place] [address] [place], [place] [address] LABORATORYOrdered By: Addis Pelayo on 02-09-2024 Appearance [...] ng/L Male: 0-76 ng/L Testing performed on [employer] using a homogeneous sandwich chemiluminescent immunoassay based on [facility] technology. Urea nitrogen [Mass/Vol] 25 mg/dL High 7 - 18 mg/dL AO ADM SS Urea nitrogen/Creatinine [Mass ratio] 26 ratio Normal 7 - 27 ratio AO ADM SS WBC (Bld) [#/Vol] 7.6 103/mcL Normal 4.5 - 10.8 10^3/mcL AO Workflow SS PBNPon 02-09-2024 Natriuretic peptide B (Bld) [Mass/Vol] 3243 pg/mL High 0-450 [facility] Comment on above: Result Comment: NT-p roBNP results of less than 300 pg/mL effectively rules out acute congestive heart failure with 99% negative predictive value. Performed By: #### B MP, MDW, GFR, ANEU, TROPHS, PBNP, CBC, ADIFF ####[address] [place], [place] [address] [facility] 02-09-2024 High Sensitivity Troponin I 23 ng/L Normal 0-51 [facility] Comment on above: Result Comment: High Sensitive Troponin I Reference Ranges: Female: 0-51 ng/L Male: 0-76 ng/L Testing performed on [employer] using a homogeneous sandwich chemiluminescent immunoassay based on [facility] technology. Performed By: #### B MP, MDW, GFR, ANEU, TROPHS, PBNP, CBC, ADIFF ####Jer[address] [place] [address] UAon 02-09-2024 Color (U) Yellow Normal [facility] Comment on above: Performed By: #### U A ####[address] [place] [address] Glucose (U) [Mass/Vol] Negative Normal Negative [facility] Comment on above: Performed By: #### U A ####[address] [place] [address] Ketones Ql (U) Negative Normal Negative [facility] Comment on above: Performed By: #### U A ####Jer[address] [place] [address] UA Appear Clear Normal Clear [facility] Comment on above: Performed By: #### U A ####[place] [address] UA Blood Negative Normal Negative [facility] Comment on above: Performed By: #### U A ####[address] [address] UA Leuk Est Negative Normal Negative [facility] Comment on above: Performed By: #### U A ####Jer[address] [place] [address] UA Nitrite Negative Normal Negative [facility] Comment on above: Performed By: #### U A ####Jer[address] [place] [address] UA pH 6.5 Normal 5.0 - 8.0 [facility] Comment on above: Performed By: #### U A ####[address] [place] [address] UA Protein Negative Normal Negative [facility] Comment on above: Performed By: #### U A ####Jerrell [address] [place] [address] UA Spec Grav 1.015 Normal 1.015-1.025 [facility] Comment on above: Performed By: #### U A ####Diagonal [address] [place], [place] [address] UA Specimen Type Void Normal [facility] Comment on above: Performed By: #### U A ####[facility] [place], [place] [address] UA Urobilinogen 0.2 E.U./dL Normal 0.2-1.0 [facility] Comment on above: Performed By: #### U A ####Jer[address] [place], [place] [address] Urobilinogen (U) [Mass/Vol] Negative Normal Negative [facility] Comment on above: Performed By: #### U A ####[facility] [place], [place] [address] VALPRon 02-09-2024 LDose Valproic Acid: Unknown Normal [facility] Comment on above: Performed By: #### V ALPR ####[facility] [place] [address] Valproic Acid Lvl 30 mcg/mL Low 50-100 [facility] Comment on above: Performed By: #### V ALPR ####[facility] [place], [place] [address] XR CHEST 1 VIEWon 02-09-2024 XR CHEST [...] 9:08:10 PM Ordering Provider: TRIXIE BARONE Normal [facility] .Urinalysis Microscopic (AO) on 01-21-2024 UA Amorphus 1+ /hpf Normal [facility] Comment on above: Performed By: #### U A, UAMICAO ####[facility] [place] [address] UA CA Ox Crystal 1+ /hpf Normal [facility] Comment on above: Performed By: #### U A, UAMICAO ####Jer[address] [place] [address] UA Mucous 2+ /hpf Normal [facility] Comment on above: Performed By: #### U A, UAMICAO ####Jerrell [address] [place] [address] UA RBC 0-5 Abnormal None Seen [facility] Comment on above: Performed By: #### U A, UAMICAO ####[place] [place] [address] UA Squam Epithelial 0-5 Abnormal None Seen [facility] Comment on above: Performed By: #### U A, UAMICAO ####[place] [address] [place] [address] UA WBC 0-5 Abnormal None Seen [facility] Comment on above: Performed By: #### U A, UAMICAO ####[place] [address] LABORATORYOrdered By: Mao Nava on 01-21-2024 Appearance [...] SS UAon 01-21-2024 Color (U) Yellow Normal [facility] Comment on above: Performed By: #### U A UAMICAO ####[facility] [place], [place] [address] Glucose (U) [Mass/Vol] Negative Normal Negative [facility] Comment on above: Performed By: #### U A, UAMICAO ####[facility] [place], [place] [address] Ketones Ql (U) Negative Normal Negative [facility] Comment on above: Performed By: #### U A, UAMICAO ####[facility] [place], [place] [address] UA Appear Clear Normal Clear [facility] Comment on above: Performed By: #### U A, UAMICAO ####[address] [place], [place] [address] UA Blood Negative Normal Negative [facility] Comment on above: Performed By: #### U A, UAMICAO ####[address] [place] [address] UA Leuk Est Negative Normal Negative [facility] Comment on above: Performed By: #### U A, UAMICAO ####[address] [place] [address] UA Nitrite Negative Normal Negative [facility] Comment on above: Performed By: #### U A, UAMICAO ####[address] [place] [address] UA pH 6.0 Normal 5.0 - 8.0 [facility] Comment on above: Performed By: #### U A, UAMICAO ####[address] [place] [address] UA Protein 30 mg/dL Normal Negative [facility] Comment on above: Performed By: #### U A, UAMICAO ####[address] [place] [address] UA Spec Grav 1.020 Normal 1.015-1.025 [facility] Comment on above: Performed By: #### U A, UAMICAO ####[address] [place] [address] UA Specimen Type Hua Catheter Normal [facility] Comment on above: Performed By: #### U A, UAMICAO ####[address] [place] [address] UA Urobilinogen 0.2 E.U./dL Normal 0.2-1.0 [facility] Comment on above: Performed By: #### U A, UAMICAO ####[address] [place] [address] Urobilinogen (U) [Mass/Vol] Negative Normal Negative [facility] Comment on above: Performed By: #### U A, UAMICAO ####[address] [place] [address] US BLADDERon 01-07-2024 US BLADDER ORIGINAL EXAMINATION: [...] 01/07/2024 11:24:46 AM Ordering Provider: LARRY Geronimo [facility] .GFRon 12-29-2023 GFR 54 ml/min/1.73sqm [facility] Comment on above: Result Comment: GFR [...] Performed By: #### G , JANIA MCKEON ####[facility] [place], [place] [address] GFR Non- 44 ml/min/1.73sqm [facility] Comment on above: Result Comment: GFR [...] Performed By: #### LINDA SOLIS CAION ####Jer[address] [place], [place] [address] BMPon 12-29-2023 BUN/Creatinine Ratio 20 ratio Normal 7-27 [facility] Comment on above: Performed By: #### LINDA SOLIS CAION ####Jer[address] [place], [place] [address] Calcium [Mass/Vol] 10.3 mg/dL High 8.4-10.2 [facility] Comment on above: Performed By: #### LINDA SOLIS CAION ####Jer[address] [place], [place] [address] Chloride [Moles/Vol] 104 mmol/L Normal 98-107 [facility] Comment on above: Performed By: #### LINDA SOLIS CAION ####Jer[address] [place], [place] [address] CO2 [Moles/Vol] 31 mmol/L Normal 23-31 [facility] Comment on above: Performed By: #### LINDA SOLIS CAION ####Jer[address] [place], [place] [address] Creatinine [Mass/Vol] 1.16 mg/dL High 0.55-1.02 [facility] Comment on above: Result Comment: Test ing performed on Siemens Dimension EXL analyzer using a modified kinetic Dora technique. Performed By: #### LINDA SOLIS CAION ####Jer[address] [place], [place] [address] Electrolyte Balance 7.0 mEq/L Normal 4.0-15.0 [facility] Comment on above: Performed By: #### LINDA SOLIS, JANIA ####Jer[address] [place], [place] [address] Glucose [Mass/Vol] 92 mg/dL Normal 83-110 [facility] Comment on above: Performed By: #### LINDA OSLIS CAION ####Jer[address] [place], [place] [address] Potassium [Moles/Vol] 4.2 mmol/L Normal 3.5-5.1 [facility] Comment on above: Performed By: #### LINDA SOLIS CAION ####[address] [place], [place] [address] Sodium [Moles/Vol] 142 mmol/L Normal 136-145 [facility] Comment on above: Performed By: #### LINDA SOLIS CAION ####[address] [place], [place] [address] Urea nitrogen [Mass/Vol] 23 mg/dL High 7-18 [facility] Comment on above: Performed By: #### LINDA SOLIS CAION ####[address] [place], [place] [address] CAIONon 12-29-2023 Calcium Ionized 1.27 mmol/L Normal 1.12-1.32 [facility] Comment on above: Performed By: #### LINDA SOLIS CAION ####Jer[address] [place], [place] [address] LABORATORYOrdered By: SYSTEM SYSTEM on 12-29-2023 Calcium [...] 12/21/2023 4:21:17 PM Ordering Provider: LARRY THOMAS [facility] XR SPINE LUMBAR W/OBLIQUES 4 VIEWSon [...] 12/21/2023 4:34:05 PM Ordering Provider: LARRY Geronimo [facility] B12on 12-16-2023 Cobalamin (Vitamin B12) [Mass/Vol] 509 pg/mL Normal 211-911 [facility] Comment on above: Performed By: #### F ES, FERR ####[place] [address]#### B12, FOL ####[place] [id number] [place] [address] FOLon 12-16-2023 Folate >48.00 High 5.38-24.00 [facility] Comment on above: Performed By: #### F ES, FERR ####[place] [address]#### B12, FOL ####[place] [address] .Auto Diffon 12-15-2023 Basophil, Absolute 0.1 10 3/mcL Normal 0.0-0.2 [facility] Comment on above: Performed By: #### C MP, ADIFF, CBC, GFR, PBNP, ANEU #### [address] [address] Basophils/100 WBC (Bld) 1.1 % Normal 0.0-2.5 A [facility] Comment on above: Performed By: #### C MP, ADIFF, CBC, GFR, PBNP, ANEU #### [address] [address] Eosinophil, Absolute 0.1 10 3/mcL Normal 0.0-0.7 [facility] Comment on above: Performed By: #### C MP, ADIFF, CBC, GFR, PBNP, ANEU #### [address] [address] Eosinophils/100 WBC (Bld) 1.4 % Normal 0.0-7.0 [facility] Comment on above: Performed By: #### C MP, ADIFF, CBC, GFR, PBNP, ANEU #### [address] [address] Lymphocyte, Absolute 1.7 10 3/mcL Normal 0.9-4.3 [facility] Comment on above: Performed By: #### C MP, ADIFF, CBC, GFR, PBNP, ANEU #### [address] [address] Lymphocytes/100 WBC (Bld) 20.9 % Normal 20.0-40.0 [facility] Comment on above: Performed By: #### C MP, ADIFF, CBC, GFR, PBNP, ANEU #### [address] [address] Monocyte, Absolute 0.5 10 3/mcL Normal 0.1-1.4 [facility] Comment on above: Performed By: #### C MP, ADIFF, CBC, GFR, PBNP, ANEU #### [address] [address] Monocytes/100 WBC (Bld) 6.0 % Normal 2.0-13.0 [facility] Comment on above: Performed By: #### C MP, ADIFF, CBC, GFR, PBNP, ANEU #### [address] [address] Neutrophils/100 WBC (Bld) 70.6 % Normal 50.0-75.0 [facility] Comment on above: Performed By: #### C MP, ADIFF, CBC, GFR, PBNP, ANEU #### [address] [address] .GFRon 12-15-2023 GFR 62 ml/min/1.73sqm Normal [facility] Comment on above: Result Comment: GFR Population [...] MP, ADIFF, CBC, GFR, PBNP, ANEU #### [address] [address] GFR Non- 52 ml/min/1.73sqm Normal [facility] Comment on above: Result Comment: GFR Population [...] MP, ADIFF, CBC, GFR, PBNP, ANEU #### [address] [address] .NEUABSon 12-15-2023 Neutrophil, Absolute 5.8 10 3/mcL Normal 2.3-8.1 [facility] Comment on above: Performed By: #### C MP, ADIFF, CBC, GFR, PBNP, ANEU #### [address] [address] CBCon 12-15-2023 Erythrocyte distribution width (RBC) [Ratio] 14.2 % Normal 11.5-15.5 [facility] Comment on above: Performed By: #### C MP, ADIFF, CBC, GFR, PBNP, ANEU #### [address] [address] Hematocrit (Bld) [Volume fraction] 34.6 % Normal 34.0-46.0 [facility] Comment on above: Performed By: #### C MP, ADIFF, CBC, GFR, PBNP, ANEU #### [address] [address] Hgb 11.7 G/dL Low 12.0-16.0 [facility] Comment on above: Performed By: #### C MP, ADIFF, CBC, GFR, PBNP, ANEU #### [place] [address] MCH (RBC) [Entitic mass] 28.7 pg Normal 27.0-33.0 [facility] Comment on above: Performed By: #### C MP, ADIFF, CBC, GFR, PBNP, ANEU #### [address] [address] MCHC 33.9 G/dL Normal 32.0-36.0 [facility] Comment on above: Performed By: #### C MP, ADIFF, CBC, GFR, PBNP, ANEU #### [place] [address] MCV (RBC) [Entitic vol] 84.8 fL Normal 80.0-99.0 [facility] Comment on above: Performed By: #### C MP, ADIFF, CBC, GFR, PBNP, ANEU #### [address] [address] Platelet 363 10 3/mcL Normal 150-450 [facility] Comment on above: Performed By: #### C MP, ADIFF, CBC, GFR, PBNP, ANEU #### [address] [address] Platelet mean volume (Bld) [Entitic vol] 7.4 fL Normal 6.6-10.5 [facility] Comment on above: Performed By: #### C MP, ADIFF, CBC, GFR, PBNP, ANEU #### [address] [address] RBC 4.08 10 6/mcL Low 4.10-5.30 [facility] Comment on above: Performed By: #### C MP, ADIFF, CBC, GFR, PBNP, ANEU #### [address] [address] WBC 8.3 10 3/mcL Normal 4.5-10.8 [facility] Comment on above: Performed By: #### C MP, ADIFF, CBC, GFR, PBNP, ANEU #### [address] [address] CMPon 12-15-2023 Albumin Level 3.9 G/dL Normal 3.4-4.8 [facility] Comment on above: Performed By: #### C MP, ADIFF, CBC, GFR, PBNP, ANEU #### [place] [id number] Albumin/Globulin [Mass ratio] 1.4 {ratio} Normal 1.1-2.5 [facility] Comment on above: Performed By: #### C MP, ADIFF, CBC, GFR, PBNP, ANEU #### [place] [id number] ALP [Catalytic activity/Vol] 72 U/L Normal 40-135 [facility] Comment on above: Performed By: #### C MP, ADIFF, CBC, GFR, PBNP, ANEU #### [address] [address] ALT [Catalytic activity/Vol] 26 U/L Normal 14-59 [facility] Comment on above: Performed By: #### C MP, ADIFF, CBC, GFR, PBNP, ANEU #### [address] [address] AST [Catalytic activity/Vol] 18 U/L Normal 10-40 [facility] Comment on above: Performed By: #### C MP, ADIFF, CBC, GFR, PBNP, ANEU #### [place] [id number] Bili Total 0.4 mg/dL Normal 0.2-1.0 [facility] Comment on above: Result Comment: Use of this assay is not recommended for patients undergoing treatment with eltrombopag due to the potential for falsely elevated results. Performed By: #### C MP, ADIFF, CBC, GFR, PBNP, ANEU #### [place] [address] BUN/Creatinine Ratio 20 ratio Normal 7-27 [facility] Comment on above: Performed By: #### C MP, ADIFF, CBC, GFR, PBNP, ANEU #### [place] [address] Calcium [Mass/Vol] 10.8 mg/dL High 8.4-10.2 [facility] Comment on above: Performed By: #### C MP, ADIFF, CBC, GFR, PBNP, ANEU #### [place] [address] Chloride [Moles/Vol] 104 mmol/L Normal 98-107 [facility] Comment on above: Performed By: #### C MP, ADIFF, CBC, GFR, PBNP, ANEU #### [place] [address] CO2 [Moles/Vol] 30 mmol/L Normal 23-31 [facility] Comment on above: Performed By: #### C MP, ADIFF, CBC, GFR, PBNP, ANEU #### [place] [address] Creatinine [Mass/Vol] 1.02 mg/dL Normal 0.55-1.02 [facility] Comment on above: Result Comment: Test ing performed on Siemens Dimension EXL analyzer using a modified kinetic Dora technique. Performed By: #### C MP, ADIFF, CBC, GFR, PBNP, ANEU #### [place] [address] Electrolyte Balance 7.0 mEq/L Normal 4.0-15.0 [facility] Comment on above: Performed By: #### C MP, ADIFF, CBC, GFR, PBNP, ANEU #### [place] [address] Globulin 2.8 G/dL Normal [facility] Comment on above: Performed By: #### C MP, ADIFF, CBC, GFR, PBNP, ANEU #### [address] [address] Glucose [Mass/Vol] 105 mg/dL Normal 83-110 [facility] Comment on above: Performed By: #### C MP, ADIFF, CBC, GFR, PBNP, ANEU #### [address] [address] Potassium [Moles/Vol] 4.2 mmol/L Normal 3.5-5.1 [facility] Comment on above: Performed By: #### C MP, ADIFF, CBC, GFR, PBNP, ANEU #### [address] [address] Sodium [Moles/Vol] 141 mmol/L Normal 136-145 [facility] Comment on above: Performed By: #### C MP, ADIFF, CBC, GFR, PBNP, ANEU #### [address] [address] Total Protein 6.7 G/dL Normal 6.4-8.2 [facility] Comment on above: Performed By: #### C MP, ADIFF, CBC, GFR, PBNP, ANEU #### [address] [address] Urea nitrogen [Mass/Vol] 20 mg/dL High 7-18 [facility] Comment on above: Performed By: #### C MP, ADIFF, CBC, GFR, PBNP, ANEU #### [address] [address] Lucretia 12-15-2023 Ferritin [Mass/Vol] 197.0 ng/mL Normal 8.0-252.0 [facility] Comment on above: Performed By: #### F ES, FERR ####[address] [address]#### B12, FOL ####[address] [address] FESon 12-15-2023 Iron [Mass/Vol] 44 ug/dL Low 50-170 [facility] Comment on above: Performed By: #### F ES, FERR ####[place] [address] [place], [place] [address]#### B12, FOL ####[place] [address] Iron Sat 15 % Normal [facility] Comment on above: Performed By: #### F ES, FERR ####[place] [address] [address]#### B12, FOL ####[place] [address] TIBC 300 mcg/dL Normal 250-450 [facility] Comment on above: Performed By: #### F ES, FERR ####[place] [address]#### B12, FOL ####[place] [address] LABORATORYOrdered By: SYSTEM SYSTEM on 12-15-2023 Albumin [...] Culture Urine No growth at 48 hours. [facility] PBNPon 12-15-2023 Natriuretic peptide B (Bld) [Mass/Vol] 1968 pg/mL High 0-450 [facility] Comment on above: Result Comment: NT-p roBNP results of less than 300 pg/mL effectively rules out acute congestive heart failure with 99% negative predictive value. Performed By: #### C MP, ADIFF, CBC, GFR, PBNP, ANEU ####[address] [address] LABORATORYOrdered By: Domingo Masterson on 12-09-2023 Appearance [...] SS UAon 12-09-2023 Color (U) Yellow Normal [facility] Comment on above: Performed By: #### U A ####[address] [address] Glucose (U) [Mass/Vol] Negative Normal Negative [facility] Comment on above: Performed By: #### U A ####[place] [address]347 Ketones Ql (U) Negative Normal Negative [facility] Comment on above: Performed By: #### U A ####[place] [address] [place] [id number] UA Appear Clear Normal Clear [facility] Comment on above: Performed By: #### U A ####[place] [address] [place], [place] [address] UA Blood Negative Normal Negative [facility] Comment on above: Performed By: #### U A ####[place] [address]347 UA Leuk Est Negative Normal Negative [facility] Comment on above: Performed By: #### U A ####[address] [place] [address]1637 UA Nitrite Negative Normal Negative [facility] Comment on above: Performed By: #### U A ####Jerrell [address] [place] 781637 UA pH 7.5 Normal 5.0 - 8.0 [facility] Comment on above: Performed By: #### U A ####[address] [address] [place] [address] UA Protein Negative Normal Negative [facility] Comment on above: Performed By: #### U A ####[address] [place] [address] UA Spec Grav 1.020 Normal 1.015-1.025 [facility] Comment on above: Performed By: #### U A ####[address] [address] [place] [address] UA Specimen Type Clean Catch Normal [facility] Comment on above: Performed By: #### U A ####Diagonal [address] [place] [address] UA Urobilinogen 0.2 E.U./dL Normal 0.2-1.0 [facility] Comment on above: Performed By: #### U A ####Jerrell [address] [place] [address] Urobilinogen (U) [Mass/Vol] Negative Normal Negative [facility] Comment on above: Performed By: #### U A ####[address] [place] [address] XR HIP RIGHT W/PELVIS 4 VIEW Son [...] 11/29/2023 11:51:51 AM Ordering Provider: SONNY STAHL [facility] .GFRon 07-08-2023 GFR 63 ml/min/1.73sqm [facility] ([place]) Comment on above: Result Comment: GFR [...] FR, A1C, ANEU, CBC, ADIFF, BMP #### [address] [address] GFR Non- 52 ml/min/1.73sqm [facility] ([place] Comment on above: Result Comment: GFR [...] FR, A1C, ANEU, CBC, ADIFF, BMP #### [address] [address] BMPon 07-08-2023 BUN/Creatinine Ratio 19 ratio Normal 7-27 [facility] ([place]) Comment on above: Performed By: #### G FR, A1C, ANEU, CBC, ADIFF, BMP #### [address] [address] Calcium [Mass/Vol] 9.6 mg/dL Normal 8.4-10.2 [facility] ([place] Comment on above: Performed By: #### G FR, A1C, ANEU, CBC, ADIFF, BMP #### [address] [address] Chloride [Moles/Vol] 106 mmol/L Normal 98-107 [facility] ([place] Comment on above: Performed By: #### G FR, A1C, ANEU, CBC, ADIFF, BMP #### [address] [address] CO2 [Moles/Vol] 29 mmol/L Normal 23-31 [facility] ([place] Comment on above: Performed By: #### G FR, A1C, ANEU, CBC, ADIFF, BMP #### [address] [address] Creatinine [Mass/Vol] 1.02 mg/dL Normal 0.55-1.02 [facility] ([place] Comment on above: Performed By: #### G FR, A1C, ANEU, CBC, ADIFF, BMP #### [address] [address] Electrolyte Balance 9.0 mEq/L Normal 4.0-15.0 [facility] ([place]) Comment on above: Performed By: #### G FR, A1C, ANEU, CBC, ADIFF, BMP #### [address] [address] Glucose [Mass/Vol] 118 mg/dL High 83-110 [facility] ([place] Comment on above: Performed By: #### G FR, A1C, ANEU, CBC, ADIFF, BMP #### [address] [address] Potassium [Moles/Vol] 3.7 mmol/L Normal 3.5-5.1 [facility] ([place] Comment on above: Performed By: #### G FR, A1C, ANEU, CBC, ADIFF, BMP #### [place] [id number] [place], [place] [address] Sodium [Moles/Vol] 144 mmol/L Normal 136-145 [facility] ([place] Comment on above: Performed By: #### G FR, A1C, ANEU, CBC, ADIFF, BMP #### [place] [address] [place], [place] [address] Urea nitrogen [Mass/Vol] 19 mg/dL High 7-18 [facility] ([place] Comment on above: Performed By: #### G FR, A1C, ANEU, CBC, ADIFF, BMP #### [place] [address] [place], [place] [address] LABORATORYOrdered By: SYSTEM SYSTEM on 07-08-2023 Calcium [...] 04/14/2023 10:35:22 AM Ordering Provider: MAHAD Geronimo [facility] ([place]) METon 04-14-2023 Methylmalonic Acid 340 nmol/L Normal 0-378 [facility] ([place]) Comment on above: Result Comment: This test was developed and its performance characteristics determined by [facility]. It has not been cleared or approved by the Food and Drug Administration. Performed At: [address] [id number] Hima Lieberman MD Ph:[phone] Performed By: #### G FR, A1C, ANEU, CBC, ADIFF, BMP #### Jerrell [address] [address] B12on 04-07-2023 Cobalamin (Vitamin B12) [Mass/Vol] 600 pg/mL Normal 211-911 [facility]) Comment on above: Performed By: #### F OL, B12 #### [address] [address] #### FT4, 885850, TSH #### [address] [address] FOLon 04-07-2023 Folate >48.00 High 5.38-24.00 [facility] ([place]) Comment on above: Performed By: #### F OL, B12 #### [address] [address] #### FT4, 785775, TSH #### [address] [address] FT4on 04-07-2023 Free T4 [Mass/Vol] 0.99 ng/dL Normal 0.76-1.46 [facility] ([place] Comment on above: Performed By: #### F OL, B12 #### [place] [address] #### FT4, 302058, TSH #### [address] [address] LABORATORYOrdered By: SYSTEM SYSTEM on 04-07-2023 Cobalamin [...] 04-07-2023 TSH Qn 1.65 m[IU]/L Normal 0.36-3.74 [facility] ([place]) Comment on above: Performed By: #### F OL, B12 #### [place] [address] #### FT4, 779884, TSH #### [address] [address] .Auto Diffon 03-10-2023 Basophil, Absolute 0.1 10 3/mcL Normal 0.0-0.2 [facility] ([place] Comment on above: Performed By: #### G FR, A1C, ANEU, CBC, ADIFF, BMP #### [address] [address] Basophils/100 WBC (Bld) 1.2 % Normal 0.0-2.5 [facility] ([place]) Comment on above: Performed By: #### G FR, A1C, ANEU, CBC, ADIFF, BMP #### [address] [address] Eosinophil, Absolute 0.1 10 3/mcL Normal 0.0-0.4 [facility] ([place] Comment on above: Performed By: #### G FR, A1C, ANEU, CBC, ADIFF, BMP #### [address] [address] Eosinophils/100 WBC (Bld) 1.6 % Normal 0.0-7.0 [facility] ([place] Comment on above: Performed By: #### G FR, A1C, ANEU, CBC, ADIFF, BMP #### [address] [address] Lymphocyte, Absolute 1.9 10 3/mcL Normal 0.8-3.9 [facility] ([place] Comment on above: Performed By: #### G FR, A1C, ANEU, CBC, ADIFF, BMP #### [address] [address] Lymphocytes/100 WBC (Bld) 23.7 % Normal 10.0-50.0 [facility] ([place] Comment on above: Performed By: #### G FR, A1C, ANEU, CBC, ADIFF, BMP #### [address] [address] Monocyte, Absolute 0.6 10 3/mcL Normal 0.2-1.0 [facility] ([place] Comment on above: Performed By: #### G FR, A1C, ANEU, CBC, ADIFF, BMP #### [address] [address] Monocytes/100 WBC (Bld) 7.8 % Normal 1.7-13.0 [facility] ([place] Comment on above: Performed By: #### G FR, A1C, ANEU, CBC, ADIFF, BMP #### [address] [address] Neutrophils/100 WBC (Bld) 65.7 % Normal 37.0-80.0 [facility] ([place] Comment on above: Performed By: #### G FR, A1C, ANEU, CBC, ADIFF, BMP #### [address] [address] .GFRon 03-10-2023 GFR 63 ml/min/1.73sqm Normal [facility] ([place] Comment on above: Result Comment: GFR [...] FR, A1C, ANEU, CBC, ADIFF, BMP #### [address] [address] GFR Non- 52 ml/min/1.73sqm Normal [facility] ([place] Comment on above: Result Comment: GFR [...] FR, A1C, ANEU, CBC, ADIFF, BMP #### [address] [address] .NEUABSon 03-10-2023 Neutrophil, Absolute 5.2 10 3/mcL Normal 2.9-6.2 [facility] ([place] Comment on above: Performed By: #### G FR, A1C, ANEU, CBC, ADIFF, BMP #### [address] [address] A1Con 03-10-2023 HbA1c (Bld) [Mass fraction] 5.6 % Normal 4.3-6.4 [facility] ([place] Comment on above: Performed By: #### G FR, A1C, ANEU, CBC, ADIFF, BMP #### [place] [address]187 CBCon 03-10-2023 Erythrocyte distribution width (RBC) [Ratio] 14.7 % High 11.5-14.5 [facility] ([place] Comment on above: Performed By: #### G FR, A1C, ANEU, CBC, ADIFF, BMP #### [place] 8[address]187 Hematocrit (Bld) [Volume fraction] 35.6 % Low 37.0-47.0 [facility] ([place] Comment on above: Performed By: #### G FR, A1C, ANEU, CBC, ADIFF, BMP #### [address] [address] Hgb 12.1 G/dL Normal 12.0-16.0 [facility] ([place] Comment on above: Performed By: #### G FR, A1C, ANEU, CBC, ADIFF, BMP #### [address] [address] MCH (RBC) [Entitic mass] 27.8 pg Normal 27.0-31.2 [facility] ([place] Comment on above: Performed By: #### G FR, A1C, ANEU, CBC, ADIFF, BMP #### [address] [address] MCHC 34.1 G/dL Normal 33.0-37.0 [facility] ([place] Comment on above: Performed By: #### G FR, A1C, ANEU, CBC, ADIFF, BMP #### [address] [address] MCV (RBC) [Entitic vol] 81.7 fL Normal 80.0-94.0 [facility] ([place]) Comment on above: Performed By: #### G FR, A1C, ANEU, CBC, ADIFF, BMP #### [address] [address] Platelet 300 10 3/mcL Normal 130-400 [facility] ([place] Comment on above: Performed By: #### G FR, A1C, ANEU, CBC, ADIFF, BMP #### [address] [address] Platelet mean volume (Bld) [Entitic vol] 8.0 fL Normal 7.4-10.4 [facility] ([place] Comment on above: Performed By: #### G FR, A1C, ANEU, CBC, ADIFF, BMP #### [address] [address] RBC 4.35 10 6/mcL Normal 4.20-5.40 [facility] ([place] Comment on above: Performed By: #### G FR, A1C, ANEU, CBC, ADIFF, BMP #### [address] [address] WBC 8.0 10 3/mcL Normal 4.6-10.8 [facility] ([place] Comment on above: Performed By: #### G FR, A1C, ANEU, CBC, ADIFF, BMP #### [address] [address] CMPon 03-10-2023 Chloride [Moles/Vol] 102 mmol/L Normal 98-107 [facility] ([place] Comment on above: Performed By: #### G FR, A1C, ANEU, CBC, ADIFF, BMP #### [address] [address] Electrolyte Balance 10.0 mEq/L Normal 4.0-15.0 [facility] ([place] Comment on above: Performed By: #### G FR, A1C, ANEU, CBC, ADIFF, BMP #### [address] [address] Potassium [Moles/Vol] 4.3 mmol/L Normal 3.5-5.1 [facility] ([place]) Comment on above: Performed By: #### G FR, A1C, ANEU, CBC, ADIFF, BMP #### [address] [address] Sodium [Moles/Vol] 141 mmol/L Normal 136-145 [facility] ([place] Comment on above: Performed By: #### G FR, A1C, ANEU, CBC, ADIFF, BMP #### [address] [address] Albumin Level 3.7 G/dL Normal 3.4-4.8 [facility] ([place] Comment on above: Performed By: #### G FR, A1C, ANEU, CBC, ADIFF, BMP #### [address] [address] Albumin/Globulin [Mass ratio] 1.1 {ratio} Normal 1.1-2.5 [facility] ([place] Comment on above: Performed By: #### G FR, A1C, ANEU, CBC, ADIFF, BMP #### [address] [address] ALP [Catalytic activity/Vol] 79 U/L Normal 40-135 [facility] ([place] Comment on above: Performed By: #### G FR, A1C, ANEU, CBC, ADIFF, BMP #### [address] [address] ALT [Catalytic activity/Vol] 24 U/L Normal 14-59 [facility] ([place] Comment on above: Performed By: #### G FR, A1C, ANEU, CBC, ADIFF, BMP #### [address] [address] AST [Catalytic activity/Vol] 12 U/L Normal 10-40 [facility] ([place] Comment on above: Performed By: #### G FR, A1C, ANEU, CBC, ADIFF, BMP #### [address] [address] Bili Total 0.3 mg/dL Normal 0.2-1.0 [facility] ([place] Comment on above: Result Comment: Use of this assay is not recommended for patients undergoing treatment with eltrombopag due to the potential for falsely elevated results. Performed By: #### G FR, A1C, ANEU, CBC, ADIFF, BMP #### [address] [address] BUN/Creatinine Ratio 25 ratio Normal 7-27 [facility] ([place] Comment on above: Performed By: #### G FR, A1C, ANEU, CBC, ADIFF, BMP #### [address] [address] Calcium [Mass/Vol] 10.1 mg/dL Normal 8.4-10.2 [facility] ([place] Comment on above: Performed By: #### G FR, A1C, ANEU, CBC, ADIFF, BMP #### [address] [address] CO2 [Moles/Vol] 29 mmol/L Normal 23-31 [facility] ([place] Comment on above: Performed By: #### G FR, A1C, ANEU, CBC, ADIFF, BMP #### [address] [address] Creatinine [Mass/Vol] 1.02 mg/dL Normal 0.55-1.02 [facility] ([place] Comment on above: Performed By: #### G FR, A1C, ANEU, CBC, ADIFF, BMP #### [address] [address] Globulin 3.3 G/dL Normal [facility] ([place] Comment on above: Performed By: #### G FR, A1C, ANEU, CBC, ADIFF, BMP #### [address] [address] Glucose [Mass/Vol] 118 mg/dL High 83-110 [facility] ([place] Comment on above: Performed By: #### G FR, A1C, ANEU, CBC, ADIFF, BMP #### [address] [address] Total Protein 7.0 G/dL Normal 6.4-8.2 [facility] ([place] Comment on above: Performed By: #### G FR, A1C, ANEU, CBC, ADIFF, BMP #### [address] [address] Urea nitrogen [Mass/Vol] 26 mg/dL High 7-18 [facility] ([place] Comment on above: Performed By: #### G FR, A1C, ANEU, CBC, ADIFF, BMP #### [address] [address] LIPIDon 03-10-2023 Cholesterol [Mass/Vol] 214 mg/dL High 0-200 [facility] ([place] Comment on above: Result Comment: Chol esterol Reference Interval: Less than 200 Desirable 200-239 Borderline high risk 240 and above High risk Performed By: #### G FR, A1C, ANEU, CBC, ADIFF, BMP #### [address] [address] Cholesterol in HDL [Mass/Vol] 62 mg/dL High 40-60 [facility] ([place] Comment on above: Performed By: #### G FR, A1C, ANEU, CBC, ADIFF, BMP #### [address] [address] Cholesterol in LDL [Mass/Vol] 111 mg/dL Normal 0-130 [facility] ([place] Comment on above: Performed By: #### G FR, A1C, ANEU, CBC, ADIFF, BMP #### [address] [address] Triglyceride [Mass/Vol] 205 mg/dL High 0-150 [facility] ([place]) Comment on above: Result Comment: Trig lyceride Reference Interval: Less than 150 Normal 150-199 Borderline high risk 200-499 High risk 500 or higher Very high risk Performed By: #### G FR, A1C, ANEU, CBC, ADIFF, BMP #### [address] [address] PHOSon 03-10-2023 Phosphate [Mass/Vol] 3.2 mg/dL Normal 2.3-4.1 [facility] ([place] Comment on above: Performed By: #### G FR, A1C, ANEU, CBC, ADIFF, BMP #### [address] [address] PTHon 03-10-2023 PTH, Intact 78.2 pg/mL Normal 18.5-88.0 [facility] ([place] Comment on above: Performed By: #### G FR, A1C, ANEU, CBC, ADIFF, BMP #### [address] [address] VIDHon 03-10-2023 Vit. D 25-Hydroxy 32.1 ng/mL Normal [facility] ([place]) Comment on above: Result Comment: Inte rpretive Values Based on Total 25(OH) Vitamin D: Deficient <20 ng/mL Insufficient 20 - <30 ng/mL Sufficient 30-100 ng/mL Performed By: #### G FR, A1C, ANEU, CBC, ADIFF, BMP #### [address] [address] BD BONE DENSITY DEXA AXIAL S [facility] 12-14-2022 BD BONE DENSITY DEXA AXIAL [...] 12/14/2022 9:37:25 AM Ordering Provider: LARRY Geronimo [facility] ([place]) .Auto Diffon 09-16-2022 Basophil, Absolute 0.1 10 3/mcL Normal 0.0-0.2 [facility] ([place] Comment on above: Performed By: #### G FR, A1C, ANEU, CBC, ADIFF, BMP #### [address] [address] Basophils/100 WBC (Bld) 0.8 % Normal 0.0-2.5 [facility] ([place] Comment on above: Performed By: #### G FR, A1C, ANEU, CBC, ADIFF, BMP #### [address] [address] Eosinophil, Absolute 0.2 10 3/mcL Normal 0.0-0.4 [facility] ([place] Comment on above: Performed By: #### G FR, A1C, ANEU, CBC, ADIFF, BMP #### [address] [address] Eosinophils/100 WBC (Bld) 2.1 % Normal 0.0-7.0 [facility] ([place] Comment on above: Performed By: #### G FR, A1C, ANEU, CBC, ADIFF, BMP #### [address] [address] Lymphocyte, Absolute 2.0 10 3/mcL Normal 0.8-3.9 [facility] ([place] Comment on above: Performed By: #### G FR, A1C, ANEU, CBC, ADIFF, BMP #### [address] [address] Lymphocytes/100 WBC (Bld) 22.9 % Normal 10.0-50.0 [facility] ([place] Comment on above: Performed By: #### G FR, A1C, ANEU, CBC, ADIFF, BMP #### [address] [address] Monocyte, Absolute 0.5 10 3/mcL Normal 0.2-1.0 [facility] ([place] Comment on above: Performed By: #### G FR, A1C, ANEU, CBC, ADIFF, BMP #### [address] [address] Monocytes/100 WBC (Bld) 6.4 % Normal 1.7-13.0 [facility] ([place] Comment on above: Performed By: #### G FR, A1C, ANEU, CBC, ADIFF, BMP #### [address] [address] Neutrophils/100 WBC (Bld) 67.8 % Normal 37.0-80.0 [facility] ([place] Comment on above: Performed By: #### G FR, A1C, ANEU, CBC, ADIFF, BMP #### [address] [address] .GFRon 09-16-2022 GFR Non- 48 ml/min/1.73sqm Normal [facility] ([place] Comment on above: Result Comment: GFR [...] FR, A1C, ANEU, CBC, ADIFF, BMP #### [address] [address] GFR 59 ml/min/1.73sqm Normal [facility] ([place] Comment on above: Result Comment: GFR [...] FR, A1C, ANEU, CBC, ADIFF, BMP #### [address] [address] .NEUABSon 09-16-2022 Neutrophil, Absolute 5.8 10 3/mcL Normal 2.9-6.2 [facility] ([place] Comment on above: Performed By: #### G FR, A1C, ANEU, CBC, ADIFF, BMP #### [address] [address] A1Con 09-16-2022 HbA1c (Bld) [Mass fraction] 5.7 % Normal 4.3-6.4 [facility] ([place] Comment on above: Performed By: #### G FR, A1C, ANEU, CBC, ADIFF, BMP #### [address] [address] BMPon 09-16-2022 BUN/Creatinine Ratio 27 ratio Normal 7-27 [facility] ([place] Comment on above: Performed By: #### G FR, A1C, ANEU, CBC, ADIFF, BMP #### [address] [address] Calcium [Mass/Vol] 9.8 mg/dL Normal 8.4-10.2 [facility] ([place] Comment on above: Performed By: #### G FR, A1C, ANEU, CBC, ADIFF, BMP #### [address] [address] Chloride [Moles/Vol] 106 mmol/L Normal 98-107 [facility] ([place] Comment on above: Performed By: #### G FR, A1C, ANEU, CBC, ADIFF, BMP #### [address] [address] CO2 [Moles/Vol] 29 mmol/L Normal 23-31 [facility] ([place] Comment on above: Performed By: #### G FR, A1C, ANEU, CBC, ADIFF, BMP #### [address] [address] Creatinine [Mass/Vol] 1.08 mg/dL High 0.55-1.02 [facility] ([place] Comment on above: Performed By: #### G FR, A1C, ANEU, CBC, ADIFF, BMP #### [address] [address] Electrolyte Balance 8.0 mEq/L Normal 4.0-15.0 [facility] ([place] Comment on above: Performed By: #### G FR, A1C, ANEU, CBC, ADIFF, BMP #### [address] [address] Glucose [Mass/Vol] 125 mg/dL High 83-110 [facility] ([place] Comment on above: Performed By: #### G FR, A1C, ANEU, CBC, ADIFF, BMP #### [address] [address] Potassium [Moles/Vol] 4.5 mmol/L Normal 3.5-5.1 [facility] ([place] Comment on above: Performed By: #### G FR, A1C, ANEU, CBC, ADIFF, BMP #### [address] [address] Sodium [Moles/Vol] 143 mmol/L Normal 136-145 [facility] ([place] Comment on above: Performed By: #### G FR, A1C, ANEU, CBC, ADIFF, BMP #### [address] [address] Urea nitrogen [Mass/Vol] 29 mg/dL High 7-18 [facility] ([place] Comment on above: Performed By: #### G FR, A1C, ANEU, CBC, ADIFF, BMP #### [address] [address] CBCon 09-16-2022 Erythrocyte distribution width (RBC) [Ratio] 14.6 % High 11.5-14.5 [facility] ([place] Comment on above: Performed By: #### G FR, A1C, ANEU, CBC, ADIFF, BMP #### [address] [address] Hematocrit (Bld) [Volume fraction] 33.9 % Low 37.0-47.0 [facility] ([place] Comment on above: Performed By: #### G FR, A1C, ANEU, CBC, ADIFF, BMP #### [address] [address] Hgb 11.2 G/dL Low 12.0-16.0 [facility] ([place] Comment on above: Performed By: #### G FR, A1C, ANEU, CBC, ADIFF, BMP #### [address] [address] MCH (RBC) [Entitic mass] 27.0 pg Normal 27.0-31.2 [facility] ([place] Comment on above: Performed By: #### G FR, A1C, ANEU, CBC, ADIFF, BMP #### [address] [address] MCHC 33.1 G/dL Normal 33.0-37.0 [facility] ([place] Comment on above: Performed By: #### G FR, A1C, ANEU, CBC, ADIFF, BMP #### [address] [address] MCV (RBC) [Entitic vol] 81.6 fL Normal 80.0-94.0 [facility] ([place] Comment on above: Performed By: #### G FR, A1C, ANEU, CBC, ADIFF, BMP #### [address] [address] Platelet 275 10 3/mcL Normal 130-400 [facility] ([place] Comment on above: Performed By: #### G FR, A1C, ANEU, CBC, ADIFF, BMP #### [address] [address] Platelet mean volume (Bld) [Entitic vol] 8.2 fL Normal 7.4-10.4 [facility] ([place] Comment on above: Performed By: #### G FR, A1C, ANEU, CBC, ADIFF, BMP #### [address] [address] RBC 4.15 10 6/mcL Low 4.20-5.40 [facility] ([place] Comment on above: Performed By: #### G FR, A1C, ANEU, CBC, ADIFF, BMP #### [address] [address] WBC 8.5 10 3/mcL Normal 4.6-10.8 [facility] ([place] Comment on above: Performed By: #### G FR, A1C, ANEU, CBC, ADIFF, BMP #### [address] [address] LABORATORYOrdered By: SYSTEM SYSTEM on 06-19-2022 Basophils [...] AH Workflow SS CNPNon 06-03-2022 CNPN Telephone (VIPAARS) SHACT ([id number]) 1940 F Date Time Provider Department 06/03/22 PAULA ALANIZ During your visit today, we recorded the following information about you: Brenton Jennings RN 06/03/2022 11:29 AM Signed Received a request from [facility] for all of Ct's left breast cancer treatment medical records. Faxed the request to medical records on [facility], fax confirmation sheet received. Brenton Jennings RN [...] Encounter Status:Closed by BRENTON JENNINGS on 06/03/22 [facility] LABORATORYOrdered By: SYSTEM SYSTEM on [...] CNOV Office Visit (TONYA ) CT DALTON ([id number]) 1940 F Date Time Provider Department 04/06/22 [...] needle core breast biopsies on 03/23/2022 at [facility]. Findings of fat necrosis, inflammation and [...] once daily. (more content not included)... Normal [facility] LABORATORYOrdered By: SYSTEM SYSTEM on 03-09-2022 Albumin [...] to date [facility] Microscopic examination of blood, culture Culture has been received in lab and is no growth to date. Routine cultures are held for 5 days. [facility] LABORATORYOrdered By: Rick Webber on 12-03-2021 Appearance [...] 1.006-1.029 AM [facility] Subsection Urobilinogen Qn (U) [id number] {Sara'U}/dL Invalid Interpretation Code 0.2-1.0E.U. /dL AM [...] Result Comment: [facility] [address] [place], [place] [address] Perf Loc - POCT Tested at AM Invalid Interpretation Code AM [facility] Subsection Comment on above: Result Comment: [facility] [address] [place], [place] [address] Perf Loc - POCT Tested at AM Invalid Interpretation Code AM [facility] Subsection Comment on above: Result Comment: [facility] [address] [place], [place] [address] MRI BREAST WO/W IVCON BILon 03-01-2018 MRI BREAST WO/W IVCON DUNCAN * * *Final Report* * * DATE OF EXAM: Mar 01 2018 11:54AM [facility] 0773 - MRI BREAST WO/W IVCON D[place] / PROCEDURE REASON: N64.4-Mastodynia * * * * Physician Interpretation * * * * #[id number] - MRI BREAST WO/W IVCON [place] BREAST MRI OF BOTH BREASTS: 03/01/2018 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 Short interval follow up of the lumpectomy site recommended per the prior MRI dated 05/18/2017. RESULT: Comparison is made to exam dated: 05/18/2017 breast MRI - [facility]. Interpretation of this MRI was correlated [...] Follow-up with ACR/NCCN guidelines. Td carlson/rafael:03/01/2018 14:15:08 Vault Manager(s): RT Amanda(N)(MR), [facility] MRI BI-RADS: 2 Benign finding Multiple [...] Health, Family Medicine, and Medical/Surgical Oncology, the [facility] has carefully reviewed the data and [...] their providers when to stop screening mammograms. Intertype Operator: Rafael Transcribe Date/Time: Mar 01 2018 11:37A Dictated by : TD SANDERS MD This examination was interpreted and the report reviewed and electronically signed by: TD SANDERS MD on Mar 01 2018 2:15PM EST [id number] Normal [facility] NURSING PROGon 03-01-2018 Protein mass conc HNO ID: [id number] Author: Carla Muse) Kristopher Service: Radiology Author [...] Summers RN March 01, 2018 10:49 AM [facility] Clinical Summary: HMSPatient IDon 01-17-2018 OOP Invalid Interpretation Code [facility] Work Phone: Office Visit: Follow-up by sasha servin, Rm: PT2on 01-17-2018 NEGATED: Highlighted rowMRI (magnetic resonance imaging) history of the lumbar spine on 10/20/2013 at [facility] Invalid Interpretation Code [facility] Work Phone: NEGATED: Highlighted rowProtein mass conc Done Invalid Interpretation Code [facility] Work Phone: MRI BREAST WO/W IVCON BILon 05-18-2017 MRI BREAST WO/W IVCON DUNCAN * * *Final Report* * * DATE OF EXAM: May 18 2017 2:32PM [facility] 0773 - MRI BREAST WO/W IVCON DUNCAN / PROCEDURE REASON: Z13.89-Encounter for screening for other disorder * * * * Physician Interpretation * * * * #[id number] - MRI BREAST WO/W IVCON DUNCAN BREAST [...] staff physician. gaurav Estrada M.D., M.D./rafael:05/18/2017 15:28:32 Vault Manager: Cally Pierson RT(R)(M), [facility] MRI BI-RADS: 3 Probably benign finding - short term interval follow-up recommended Intertype Operator: Rafael Transcribe Date/Time: May 18 2017 2:15P Dictated by : MALLIKA PAYNE MD This examination was interpreted and the report reviewed and electronically signed by: CRICKET AMBRIZ MD on May 18 2017 3:28PM EST [id number] [facility] NURSING PROGon 05-18-2017 Protein mass conc HNO ID: [id number] Author: Ema (Rn) DONA Bai Service: PICC [...] 2017 TIME: 1:27 PM PAGER/CONTACT #: [id number] [facility] Vital Signs Date Time Vital Sign Value Performing Clinician Facility 08-26-2024 12:46-0400 Body height 167.[address] Warner Leos MD Work Phone: [facility] 07-24-2024 03:24-0400 Diastolic blood pressure 69 mm[Hg] Dr. Warner Leos MD Work Phone: [facility] 07-24-2024 03:24-0400 Heart rate 52 /min Dr. Warner Leos MD Work Phone: [facility] 07-24-2024 03:24-0400 SaO2% (BldA) [Mass fraction] 100 % Dr. Warner Leos MD Work Phone: [facility] 07-24-2024 03:24-0400 Systolic blood pressure 164 mm[Hg] Dr. Warner Leos MD Work Phone: [facility] 07-24-2024 01:24-0400 Body height 167.[address] Warner Leos MD Work Phone: [facility] 07-24-2024 01:24-0400 Body mass index (BMI) [Ratio] 28 kg/m2 Dr. Warner Leos MD Work Phone: [facility] 07-24-2024 01:24-0400 Body temperature 98 [degF] Dr. Warner Leos MD Work Phone: [facility] 07-24-2024 01:24-0400 Body weight 78.[address] Warner Leos MD Work Phone: [facility] 07-24-2024 01:24-0400 Respiratory rate 16 /min Dr. Warner Leos MD Work Phone: [facility] 02-10-2024 15:30-0500 Body temperature 97.52 [degF] ELDA DEL ROSARIO [employer] MOLDER-YARDAGE CONTROL OPERATOR [employer] [facility] 02-10-2024 15:30-0500 Diastolic Blood Pressure Non-Invasive 72 mm[Hg] ELDA DEL ROSARIO [employer] MOLDER-YARDAGE CONTROL OPERATOR [employer] [facility] 02-10-2024 15:30-0500 Heart rate 84 /min ELDA DEL ROSARIO [employer] MOLDER-YARDAGE CONTROL OPERATOR [employer] [facility] 02-10-2024 15:30-0500 Reason For Taking VItal Signs ELDA DEL ROSARIO [employer] MOLDER-YARDAGE CONTROL OPERATOR [employer] [facility] 02-10-2024 15:30-0500 Respiratory rate 16 /min ELAD DEL ROSARIO [employer] MOLDER-YARDAGE CONTROL OPERATOR [employer] [facility] 02-10-2024 15:30-0500 Systolic Blood Pressure Non-Invasive 146 mm[Hg] ELDA OBREGONRUFF [employer] MOLDER-YARDAGE CONTROL OPERATOR [employer] 02-10-2024 06:37-0500 Body temperature 97.34 [degF] ELDA OBREGONRUFF [employer] MOLDER-YARDAGE CONTROL OPERATOR [employer] 02-10-2024 06:37-0500 Diastolic Blood Pressure Non-Invasive 82 mm[Hg] ELDA DE LROSARIO [employer] MOLDER-YARDAGE CONTROL OPERATOR [facility] 02-10-2024 06:37-0500 Heart rate 80 /min ELDA DEL ROSARIO [employer] MOLDER-YARDAGE CONTROL OPERATOR [employer] 02-10-2024 06:37-0500 Reason For Taking VItal Signs ELDA DEL ROSARIO [employer] MOLDER-YARDAGE CONTROL OPERATOR [facility] 02-10-2024 06:37-0500 Respiratory rate 14 /min ELDA DEL ROSARIO [employer] MOLDER-YARDAGE CONTROL OPERATOR [employer] 02-10-2024 06:37-0500 Systolic Blood Pressure Non-Invasive 148 mm[Hg] ELDA BUCKNERFF [employer] MOLDER-YARDAGE CONTROL OPERATOR [employer] 02-10-2024 03:22-0500 Body temperature 97.52 [degF] ELDA DEL ROSARIO [employer] MOLDER-YARDAGE CONTROL OPERATOR [employer] 02-10-2024 03:22-0500 Diastolic Blood Pressure Non-Invasive 81 mm[Hg] ELDA DEL ROSARIO [employer] MOLDER-YARDAGE CONTROL OPERATOR [facility] 02-10-2024 03:22-0500 Heart rate 81 /min ELDA DEL ROSARIO [employer] MOLDER-YARDAGE CONTROL OPERATOR [facility] 02-10-2024 03:22-0500 Reason For Taking VItal Signs ELDA DEL ROSARIO [employer] MOLDER-YARDAGE CONTROL OPERATOR [facility] 02-10-2024 03:22-0500 Respiratory rate 14 /min ELDA DEL ROSARIO [employer] MOLDER-YARDAGE CONTROL OPERATOR [employer] 02-10-2024 03:22-0500 Systolic Blood Pressure Non-Invasive 156 mm[Hg] ELDA DEL ROSARIO [employer] MOLDER-YARDAGE CONTROL OPERATOR [employer] 02-09-2024 22:01-0500 Heart rate 74 /min ELDA DEL ROSARIO [employer] MOLDER-YARDAGE CONTROL OPERATOR [employer] 02-09-2024 21:59-0500 Body height 152 cm ELDA DEL ROSARIO [employer] MOLDER-YARDAGE CONTROL OPERATOR [employer] [facility] 02-09-2024 21:59-0500 Body weight 67 kg ELDA DEL ROSARIO [employer] MOLDER-YARDAGE CONTROL OPERATOR [employer] 02-09-2024 21:59-0500 Body weight 29 kg/m2 ELDA DEL ROSARIO [employer] MOLDER-YARDAGE CONTROL OPERATOR [employer] [facility] 02-09-2024 21:07-0500 Heart rate 78 /min ELDA DEL ROSARIO [employer] MOLDER-YARDAGE CONTROL OPERATOR [employer] [facility] 02-09-2024 21:07-0500 Mean blood pressure 90 mm[Hg] ELDA DEL ROSARIO [employer] MOLDER-YARDAGE CONTROL OPERATOR [employer] 02-09-2024 20:38-0500 Mean blood pressure 85 mm[Hg] ELDA DEL ROSARIO [employer] MOLDER-YARDAGE CONTROL OPERATOR [employer] [facility] 02-09-2024 19:39-0500 Heart rate 83 /min ELDA DEL ROSARIO [employer] MOLDER-YARDAGE CONTROL OPERATOR [employer] [facility] 01-21-2024 10:04-0500 Body height 160 cm INES DENNIS MD [facility] 01-21-2024 10:04-0500 Body temperature 97.52 [degF] INES DENNIS MD [facility] 01-21-2024 10:04-0500 Body weight 68.2 kg INES DENNIS MD [facility] 01-21-2024 10:04-0500 Diastolic Blood Pressure Non-Invasive 81 mm[Hg] INES DENNIS MD [facility] 01-21-2024 10:04-0500 Heart rate 85 /min INES DENNIS MD [facility] 01-21-2024 10:04-0500 Respiratory rate 18 /min INES DENNIS MD [facility] 01-21-2024 10:04-0500 Systolic Blood Pressure Non-Invasive 164 mm[Hg] INES DENNIS MD [facility] 12-09-2023 08:47-0400 Blood Pressure Location INES DENNIS MD [facility] 12-09-2023 08:47-0400 Blood Pressure Method INES DENNIS MD [facility] 12-09-2023 08:47-0400 Body temperature 98.24 [degF] INES DENNIS MD [facility] 12-09-2023 08:47-0400 Diastolic Blood Pressure Non-Invasive 91 mm[Hg] INES DENNIS MD [facility] 12-09-2023 08:47-0400 Heart rate 90 /min INES DENNIS MD [facility] 12-09-2023 08:47-0400 Respiratory rate 18 /min INES DNENIS MD [facility] 12-09-2023 08:47-0400 Systolic Blood Pressure Non-Invasive 161 mm[Hg] INES DENNIS MD [facility] 11-29-2023 12:26-0400 Diastolic Blood Pressure Non-Invasive 76 mm[Hg] SONNY STAHL DO [facility] 11-29-2023 12:26-0400 Heart rate 76 /min SONNY STAHL DO [facility] 11-29-2023 12:26-0400 Respiratory rate 18 /min SONNY STAHL DO [facility] 11-29-2023 12:26-0400 Systolic Blood Pressure Non-Invasive 164 mm[Hg] SONNY STAHL DO [facility] 11-29-2023 08:58-0400 Blood Pressure Cuff Size SONNY STAHL DO [facility] 11-29-2023 08:58-0400 Blood Pressure Location SONNY STAHL DO [facility] 11-29-2023 08:58-0400 Blood Pressure Method SONNY STAHL DO [facility] 11-29-2023 08:58-0400 Body height 155 cm SONNY STAHL DO [facility] 11-29-2023 08:58-0400 Body temperature 97.34 [degF] SONNY STAHL DO [facility] 11-29-2023 08:58-0400 Diastolic Blood Pressure Non-Invasive 83 mm[Hg] SONNY STAHL DO [facility] 11-29-2023 08:58-0400 Heart rate 84 /min SONNY STAHL DO [facility] 11-29-2023 08:58-0400 Respiratory rate 18 /min SONNY STAHL DO [facility] 11-29-2023 08:58-0400 Systolic Blood Pressure Non-Invasive 172 mm[Hg] SONNY STAHL DO [facility] 06-19-2022 12:01-04[address] Blood Pressure Cuff Size DR ANISA GOMEZ MD [facility] 06-19-2022 12:01-[address] ANISA GOMEZ MD [facility] 06-19-2022 12:01-[address] ANISA GOMEZ MD [facility] 06-19-2022 12:01-0400 Body height [address] ANISA GOMEZ MD [facility] 06-19-2022 12:01-0400 Body temperature 97.7 [degF] DR ANISA GOMEZ MD [facility] 06-19-2022 12:01-0400 Body weight 76.[address] ANISA GOMEZ MD [facility] 06-19-2022 12:01-0400 Body weight 31.88 kg/m2 DR NAISA GOMEZ MD [facility] 06-19-2022 12:01-0400 Diastolic Blood Pressure Non-Invasive [address] ANISA GOMEZ MD [facility] 06-19-2022 12:01-0400 Heart rate 86 /min DR ANISA GOMEZ MD [facility] 06-19-2022 12:01-0400 Systolic Blood Pressure Non-Invasive [address] ANISA GOMEZ MD [facility] 04-06-2022 09:47-0500 Body height 157.5 cm Paula Alaniz MD Work Phone: [facility] 04-06-2022 09:47-0500 Body temperature 97.81 [degF] Paula Alaniz MD Work Phone: [facility] 04-06-2022 09:47-0500 Body weight 73.94 kg Paula Alaniz MD Work Phone: [facility] 04-06-2022 09:47-0500 Diastolic blood pressure 70 mm[Hg] Paula Alaniz MD Work Phone: [facility] 04-06-2022 09:47-0500 Heart rate 109 /min Paula Alaniz MD Work Phone: [facility] 04-06-2022 09:47-0500 SaO2% (BldA) [Mass fraction] 99 % Paula Alaniz MD Work Phone: [facility] 04-06-2022 09:47-0500 Systolic blood pressure 148 mm[Hg] Paula Alaniz MD Work Phone: [facility] 12-25-2021 16:18-0500 Diastolic Blood Pressure Non-Invasive 69 1 INES DENNIS MD [facility] 12-25-2021 16:18-0500 Systolic Blood Pressure Non-Invasive 189 1 INES DENNIS MD [facility] 12-25-2021 15:56-0500 Body height 157.5 cm INES DENNIS MD [facility] 12-25-2021 15:56-0500 Body temperature 96.44 [degF] INES DENNIS MD [facility] 12-25-2021 15:56-0500 Body weight 65.9 kg INES DENNIS MD [facility] 12-25-2021 15:56-0500 Diastolic Blood Pressure Non-Invasive 109 1 INES DENNIS MD [facility] 12-25-2021 15:56-0500 Heart rate 90 /min INES DENNIS MD [facility] 12-25-2021 15:56-0500 Respiratory rate 20 /min INES DENNIS MD [facility] 12-25-2021 15:56-0500 Systolic Blood Pressure Non-Invasive 202 1 INES DENNIS MD [facility] 12-06-2021 12:58-0400 Diastolic blood pressure 77 mm[Hg] DR KEVIN VIRGEN MD [address] [place] [address] 12-06-2021 12:58-0400 Mean blood pressure 111 mm[Hg] DR KEVIN VIRGEN MD [address] [place] [address] 12-06-2021 12:58-0400 Systolic blood pressure 180 mm[Hg] DR KEVIN VIRGEN MD [facility] 12-06-2021 12:55-0400 Diastolic blood pressure 77 mm[Hg] DR KEVIN VIRGEN MD [facility] 12-06-2021 12:55-0400 Heart rate 60 /min DR KEVIN VIRGEN MD [facility] 12-06-2021 12:55-0400 Mean blood pressure 111 mm[Hg] DR KEVIN VIRGEN MD [facility] 12-06-2021 12:55-0400 Reason For Taking VItal Signs DR KEVIN VIRGEN MD [facility] 12-06-2021 12:55-0400 Respiratory rate 18 /min DR KEVIN VIRGEN MD [address] [place] [address] 12-06-2021 12:55-0400 Systolic blood pressure 180 mm[Hg] DR KEVIN VIRGEN MD [address] [place] [address] 12-06-2021 08:46-0400 Heart rate 78 /min DR KEVIN VIRGEN MD [address] [place] [address] 12-06-2021 08:30-0400 Body temperature 98.06 [degF] DR KEVIN VIRGEN MD [address] [place] [address] 12-06-2021 08:30-0400 Diastolic blood pressure 82 mm[Hg] DR KEVIN VIRGEN MD [address] 12-06-2021 08:30-0400 Heart rate 77 /min DR KEVIN VIRGEN MD [address] [place] [address] 12-06-2021 08:30-0400 Mean blood pressure 106 mm[Hg] DR KEVIN VIRGEN MD [address] [place] [address] 12-06-2021 08:30-0400 Reason For Taking VItal Signs DR KEVIN VIRGEN MD [address] [place] [address] 12-06-2021 08:30-0400 Respiratory rate 17 /min DR KEVIN VIRGEN MD [address] [place] [address] 12-06-2021 08:30-0400 Systolic blood pressure 155 mm[Hg] DR KEVIN VIRGEN MD [address] [place] [address] 12-06-2021 03:45-0400 Body temperature 97.88 [degF] DR KEVIN VIRGEN MD [address] [place] [address] 12-06-2021 03:45-0400 Reason For Taking VItal Signs DR KEVIN VIRGEN MD [address] [place] [address] 12-06-2021 03:45-0400 Respiratory rate 18 /min DR KEVIN VIRGEN MD [address] [place] [address] 12-05-2021 23:53-0400 Body temperature 98.06 [degF] DR KEVIN VIRGEN MD [address] [place] [address] 12-04-2021 15:33-0400 Heart rate 56 /min DR KEVIN VIRGEN MD [address] [place] [address] 12-04-2021 02:47-0400 Heart rate 55 /min DR KEVIN VIRGEN MD [address] [place] [address] 12-03-2021 23:44-0400 Heart rate 60 /min DR KEVIN VIRGEN MD [address] [place] [address] 12-03-2021 21:46-0400 Body height [address] KEVIN VIRGEN MD [address] [place] [address] 12-03-2021 21:46-0400 Body weight 83.[address] KEVIN IVRGEN MD [address] [place] [address] 12-03-2021 21:46-0400 Body weight 32.73 kg/m2 DR KEVIN VIRGEN MD [address] [place] [address] 12-03-2021 21:30-0400 Heart rate 86 /min DR KEVIN VIRGEN MD [address] [place] [address] 12-03-2021 14:26-0400 Body temperature 98.06 [degF] DR KEVIN VIRGEN MD [address] [place] [address] 12-03-2021 14:26-0400 Body weight 83.[address] KEVIN VIRGEN MD [address] [place] [address] NEGATED: Highlighted [id number] 10:24-0500 BMI (Body Mass Index) 37.26 kg/m2 Rigo Best AT [facility] Work Phone: NEGATED: Highlighted [id number] 10:24-0500 BP Diastolic 72 mm[Hg] Rigo Best AT [facility] Work Phone: NEGATED: Highlighted [id number] 10:24-0500 BP Diastolic 82 mm[Hg] Rigo Sitko AT [facility] Work Phone: NEGATED: Highlighted [id number] 10:24-0500 BP Systolic 154 mm[Hg] Rigo Sitko AT [facility] Work Phone: NEGATED: Highlighted [id number] 10:24-0500 BP Systolic 149 mm[Hg] Rigo Sitko AT [facility] Work Phone: NEGATED: Highlighted [id number] 10:24-0500 Height 157.48 cm Rigo Sitko AT [facility] Work Phone: NEGATED: Highlighted [id number] 10:24-0500 Height 157 cm Rigo Sitko AT [facility] Work Phone: NEGATED: Highlighted [id number] 10:24-0500 Pulse (Heart Rate) 60 /min Rigo Best AT [facility] Work Phone: NEGATED: Highlighted [id number] 10:24-0500 Weight 92.08 kg Rigo Best AT [facility] Work Phone: NEGATED: Highlighted [id number] 10:24-0500 Weight 92 kg Rigo Best AT [facility] Work Phone: Encounters Encounter Date Encounter Type Care Provider Facility Start: 10-16-2024 ambulatory Jairon TREVIÑO Fa cility:[facility] Start: 10-16-2024 Registered Referred Jairon LockhartKate Jordon Start: 09-18-2024 ambulatory Jairon TREVIÑO Fa cility:[facility] Start: 09-18-2024 Registered Referred Jairon LockhartKate Jordon Start: 08-28-2024 End: 08-28-2024 ambulatory Jairon Medel OLS Facility:[facility] Start: 08-28-2024 End: 08-28-2024 Departed Referred Jairon Medel MD -[facility] Start: 08-28-2024 Registered Referred Jairon Medel MD [facility] Start: 08-21-2024 ambulatory Carrillobraden Cortezdorcas Facili ty:[facility] Start: 08-21-2024 Registered Referred Jairon Mdeel MD -[facility] Start: 08-08-2024 End: 08-08-[address] Warner Leos MD Work Phone: -[facility] Start: 08-08-2024 End: 08-08-[address] Jairon Medel MD -[facility] Work Phone: Start: 08-08-2024 Non-patient / Non-visit Dr. Julia young MD -[facility] Work Phone: Start: 07-24-2024 End: 07-24-[address] Warner Leos MD Work Phone: -[facility] Start: 07-24-2024 End: 07-24-2024 Patient encounter procedure Jane Barth COMPLIANCE TESTER-C -[facility] Work Phone: Start: 07-24-2024 End: 07-24-2024 Emergency department patient visit Dr. Warner Leos MD Work Phone: -Emergency Department Work Phone: Start: 06-27-2024 End: 06-27-[address] Warner Leos MD Work Phone: -[facility] Start: 06-27-2024 End: 06-27-[address] Jairon Medel MD -[facility] Work Phone: Start: 06-26-2024 End: 06-26-[address] Warner Leos MD Work Phone: [facility] Work Phone: Start: 06-26-2024 End: 06-26-2024 Departed Referred Jairon Ruvalcaba Start: 06-26-2024 End: 06-26-2024 ambulatory Jairon Medel OLS Facility:[facility] Start: 05-29-2024 End: 05-29-[address] Warner Leos MD Work Phone: [facility] Work Phone: Start: 05-29-2024 End: 05-29-2024 Departed Referred Jairon Ruvalcaba Start: 05-29-2024 Registered Referred Jairon Ruvalcaba Start: 05-29-2024 End: 05-29-2024 ambulatory Carrillomahadmakenzie Gianfranco TREVIÑO Facility:[facility] Start: 05-24-2024 End: 05-24-[address] Warner Leos MD Work Phone: [facility] Work Phone: Start: 05-24-2024 End: 05-24-2024 Departed Referred Jairon Ruvalcaba Start: 05-24-2024 Registered Referred Jairon Ruvalcaba Start: 05-23-2024 End: 05-24-[address] Warner Leos MD Work Phone: [facility] Work Phone: Start: 05-23-2024 End: 05-23-2024 Patient encounter procedure Jane Barth [facility] -[facility] Work Phone: Start: 05-15-2024 End: 05-15-[address] Warner Leos MD Work Phone: [facility] Work Phone: Start: 05-15-2024 End: 05-15-2024 Departed Referred Jairon Ruvalcaba Start: 05-15-2024 Registered Referred Jairon Ruvalcaba Start: 05-15-2024 End: 05-15-2024 ambulatory Carrillobraden Medel OLS Facility:[facility] Start: 05-12-2024 End: 05-12-[address] Warner Leos MD Work Phone: [facility] Work Phone: Start: 05-12-2024 End: 05-12-2024 Patient encounter procedure Jane Barth COMPLIANCE TESTER-C -[facility] Work Phone: Start: 05-01-2024 End: 05-01-[address] Warner Leos MD Work Phone: [facility] Work Phone: Start: 05-01-2024 End: 05-01-2024 Departed Referred Jairon Ruvalcaba Start: 05-01-2024 End: 05-01-2024 ambulatory Carrillobraden Medel OLS Facility:[facility] Start: 04-26-2024 End: 04-26-2024 ambulatory Jane Barth COMPLIANCE TESTER Facility:[facility] Start: 04-26-2024 End: 04-26-2024 Patient encounter procedure Jane Barth COMPLIANCE TESTER-C -[facility] Work Phone: Start: 04-11-2024 End: 04-11-2024 ambulatory Jairon Medel Facility:[facility] Start: 04-11-2024 End: 04-11-[address] Jairon Medel MD -[facility] Work Phone: Start: 04-03-2024 End: 04-03-2024 Patient encounter procedure Jane aBrth COMPLIANCE TESTER-C -[facility] Work Phone: Start: 04-03-2024 End: 04-03-2024 ambulatory Jane Barth COMPLIANCE TESTER Facility:[facility] Start: 04-03-2024 Registered Referred Jairon Ruvalcaba Start: 03-27-2024 ambulatory Jairon TREIVÑO Fa cility:[facility] Start: 03-27-2024 Registered Referred Jairon LockhartKate Jordon Start: 02-29-2024 End: 02-29-2024 ambulatory Jairon Medel Facility:[facility] Start: 02-29-2024 End: 02-29-[address] Jairon Medel MD -[facility] Work Phone: Start: 02-28-2024 End: 02-28-2024 Departed Referred Jairon LockhartKate Ruvalcaba Start: 02-28-2024 End: 02-28-2024 ambulatory Warner Leos Jr. Facility:[facility] Start: 02-24-2024 End: 02-24-2024 ambulatory Jane Barth NP Facility:[facility] Start: 02-24-2024 End: 02-24-2024 Patient encounter procedure Jane Barth COMPLIANCE TESTER- -[facility] Work Phone: Start: 02-11-2024 End: 02-23-[address] LARRY THOMAS DO Facility:[facility] Start: 02-09-2024 End: 02-10-2024 Emergency department patient visit ELDA DEL ROSARIO APRN-SHAMEKA Facility:[facility] Start: 02-09-2024 End: 02-10-2024 Observation ELDA CARIN IGLESIASYARDAGE CONTROL OPERATOR FORMING [facility] Start: 01-21-2024 End: 01-21-2024 Emergency department patient visit INES DENNIS MD [facility] Start: 01-05-2024 End: 01-05-[address] LARRY THOMAS DO Facility:[facility] Start: 01-05-2024 End: 01-05-[address] LARRY THOMAS DO [facility] Start: 12-29-2023 End: 12-29-[address] LARRY THOMAS DO [facility] Start: 12-29-2023 End: 12-29-[address] LARRY THOMAS DO [facility] Start: 12-21-2023 End: 12-21-[address] LARRY THOMAS DO Facility[facility] Start: 12-21-2023 End: 12-21-[address] LARRY THOMAS DO [facility] Start: 12-18-2023 End: 01-26-[address] LARRY THOMAS DO Facility:[facility] Start: 12-15-2023 End: 12-15-[address] LARRY THOMAS DO Facility[facility] Start: 12-15-2023 End: 12-15-[address] LARRY THOMAS DO [facility] Start: 12-15-2023 End: 12-19-[address] LARRY THOMAS DO [facility] Start: 12-15-2023 End: 12-19-[address] LARRY THOMAS DO [facility] Start: 12-09-2023 End: 12-09-2023 Emergency department patient visit INES DENNIS MD [facility] Start: 11-29-2023 End: 11-29-2023 Emergency department patient visit SONNY STAHL DO [facility] Start: 07-08-2023 End: 07-09-[address] LARRY THOMAS DO Facility:B Start: 07-08-2023 End: 07-08-[address] LARRY THOMAS DO [facility] Start: 04-14-2023 End: 04-15-2023 ambulatory MAHAD LORENZO MD Facility:B Start: 04-14-2023 End: 04-14-2023 Patient encounter procedure MAHAD LORENZO MD [facility] Start: 04-09-2023 End: 05-06-[address] LARRY THOMAS DO Facility:R Start: 04-09-2023 End: 02-14-[address] LARRY THOMAS DO Facility:[facility] Start: 04-07-2023 End: 04-08-[address] LARRY THOMAS DO Facility:B Start: 04-07-2023 End: 04-07-2023 Patient encounter procedure MAHAD LORENZO MD [facility] Start: 03-10-2023 End: 03-11-[address] LARRY THOMAS DO Facility:B Start: 12-14-2022 End: 12-15-[address] LARRY THOMAS DO Facility:B Start: 2022 End: 11-09-[address] LARRY THOMAS DO Facility:B Start: 2022 End: 11-09-2022 Coordination of care plan DR LARRY THOMAS DO [facility] Start: 09-16-2022 End: 09-17-[address] LARRY THOMAS DO Facility:B Start: 07-16-2022 End: 07-17-[address] ANISA GOMEZ MD Facility:A Start: 06-19-2022 End: 06-19-[address] ANISA GOMEZ MD [facility] Start: 06-03-2022 Telephone encounter Paula Yepez MD Work Phone: General Surgery Comment on above: Request for medical records Start: 04-15-2022 End: 04-15-[address] LARRY THOMAS DO [facility] Start: 04-14-2022 End: 04-14-[address] LARRY THOMAS DO [facility] Start: 04-06-2022 End: 04-07-2022 ambulatory PAULA ALANIZ Facility:[facility] Start: 04-06-2022 End: 04-06-2022 Patient encounter procedure Paula Alaniz MD Work Phone: General Surgery Comment on above: Abnormal ultrasound of breast; History of left breast cancer Start: 03-23-2022 End: 03-23-2022 Patient encounter procedure ALANNA WRIGHT DO [facility] Start: 03-09-2022 End: 03-09-[address] LARRY THOMAS DO [facility] Start: 02-23-2022 End: 02-23-2022 Patient encounter procedure ALANNA WRIGHT DO [facility] Start: 01-22-2022 End: 01-22-2022 Patient encounter procedure ALANNA WRIGHT DO [facility] Start: 12-25-2021 End: 12-25-2021 Emergency department patient visit INES DENNIS MD [facility] Start: 12-03-2021 End: 12-06-[address] KEVIN VIRGEN MD [facility] Start: 05-05-2021 End: 05-05-2021 Patient encounter procedure ALANNA WRIGHT DO [facility] Start: 12-11-2020 End: 12-11-2020 Patient encounter procedure SEAN POOLE MD [facility] Start: 03-01-2018 Patient encounter procedure [facility] Start: 01-17-2018 End: 01-17-2018 Patient encounter procedure Carla Dye MD Work Phone: [facility] Work Phone: Start: 05-18-2017 Patient encounter procedure [facility] Procedures Date Procedure Procedure Detail Performing Clinician [...] Date Care Activity Detail Author Start: 07-24-2024 [facility] Start: 02-08-2022 ADVANCE DIRECTIVE DISCUSSION ADVANCE DIRECTIVE DISCUSSION [facility] Start: 02-08-2022 DEPRESSION ASSESSMENT DEPRESSION ASSESSMENT [facility] Start: 08-10-2021 COVID-19 VACCINE (5 - Booster for Moderna series) COVID-19 VACCINE (5 - Booster for Moderna series) [facility] Start: 01-17-2018 End: 01-17-2018 Appointment Appointment [facility] Work Phone: Start: 09-23-2003 BONE DENSITY BONE DENSITY [facility] Start: 09-23-2003 PNEUMOCOCCAL: 65+ (1 - PCV) PNEUMOCOCCAL: 65+ (1 - PCV) [facility] Start: 1988 SHINGRIX VACCINE (1 of 2) SHINGRIX VACCINE (1 of 2) [facility] Start: 09-23-1983 DIABETES SCREEN DIABETES SCREEN [facility] Start: 1957 Urine microalbumin profile DTAP,TDAP,TD (1 - Tdap) [facility] Patient Education [facility] Work Phone: Patient referral [facility] Work Phone: Immunizations Immunization Date Immunization Notes Care Provider Fa cili 12-27-2022 SARS-CoV-2 (COVID-19 ) [id number] MAHAD LORENZO MD [facility] 11-05-2022 zoster vaccine recombinant MAHAD LORENZO MD [facility] 10-03-2022 influenza virus vacc ine, unspecified formulation MAHAD LORENZO MD [facility] 09-15-2022 pneumococcal 20-lisa nt conjugate vaccine MAHAD LORENZO MD [facility] 01-10-2022 influenza virus vacc ine, unspecified formulation MAHAD LORENZO MD [facility] 06-15-2021 SARS-CoV-2 (COVID-19 ) mRNA-1273 vaccine MAHAD LORENZO MD [facility] 12-12-2020 SARS-CoV-2 (COVID-19 ) mRNA-1273 vaccine MAHAD LORENZO MD [facility] Comment on above: Result Comment: 2022: [id number] 10-22-2020 influenza virus vacc ine, unspecified formulation MAHAD LORENZO MD [facility] 03-28-2020 COVID-19, mRNA, LNP- S, PF, 100 mcg/ 0.5 mL dose; Translations: [Moderna COVID-19 Vaccine] SEAN POOLE MD [facility] 02-29-2020 COVID-19, mRNA, LNP- S, PF, 100 mcg/ 0.5 mL dose; Translations: [Moderna COVID-19 Vaccine] SEAN POOLE MD [facility] 10-12-2019 influenza virus vacc ine, unspecified formulation SEAN POOLE MD [facility] Comment on above: Result Comment: michael peck administered 10-11-2019 influenza virus vacc ine, unspecified formulation MAHAD LORENZO MD [facility] 10-11-2019 pneumococcal conjuga te vaccine, 13 valent SEAN POOLE MD [facility] 10-07-2018 influenza virus vacc ine, unspecified formulation SEAN POOLE MD [facility] 12-21-2017 influenza virus vacc ine, unspecified formulation SEAN POOLE MD [facility] 10-27-2016 influenza virus vacc ine, unspecified formulation SEAN POOLE MD [facility] 10-29-2015 influenza virus vacc ine, unspecified formulation SEAN POOLE MD [facility] 10-30-2014 influenza virus vacc ine, unspecified formulation SEAN POOLE MD [facility] 10-31-2013 influenza virus vacc ine, unspecified formulation SEAN POOLE MD [facility] 11-01-2012 influenza virus vacc ine, unspecified formulation SEAN POOLE MD [facility] 01-09-2005 pneumococcal polysaccharide vaccine, 23 valent SEAN POOLE MD [facility] No information available. Rigo Best AT [facility] Work Phone: Payers Date Payer Category Payer Self-pay [id number] 2017 Private Health Insurance [id number] 2017 Unknown [id number] 2003 Medicare [id number]. 1.13.159.2.7.3.6 [id number] 2003 Medicare [id number] 1940 Unknown [id number] 2.16.840.1.128993.3.579.2. 1940 Unknown [id number] 2.16.840.1.062814.3.579.2. 1938 Unknown [id number] 2.16.840.1.340629.3.579.2. 1938 Unknown [id number] 2.16.840.1.684956.3.579.2. 1938 Unknown [id number] 2.16.840.1.587326.3.579.2.627 1938 Unknown [id number] 2.16.840.1.273790.3.579.2. 1938 Unknown [id number] 2.16.840.1.201213.3.579.2. 1938 Unknown [id number] 2.16.840.1.013586.3.579.2. 1938 Unknown [id number] 2.16.840.1.689267.3.579.2. 1938 Unknown [id number] 2.16.840.1.372015.3.579.2. 1938 Unknown [id number] 2..840.1.168703.3.579.2. 1938 Unknown [id number] 2.840.1.054310.3.579.2. 1938 Unknown [id number] 2..840.1.467107.3.579.2. 1938 Unknown [id number] 2.840.1.079098.3.579.2. 1938 Unknown [id number] 2.840.1.709519.3.579.2. 1938 Unknown [id number] 2.840.1.658461.3.579.2. 1938 Unknown [id number] 2.840.1.717344.3.579.2.627 Medicare MEDICARE PART A B [id number] Unknown [id number] 2.16.840.1.774989.3.579.2.462 Unknown [id number] 2.16.840.1.492938.3.579.2.462 Unknown [id number] 2.16840.1.254504.3.579.2.462 Unknown [id number] 2.16.840.1.768673.3.579.2.462 Unknown [id number] 2.16.840.1.333810.3.579.2.462 Unknown [id number] 2.16840.1.469744.3.579.2.462 Unknown [id number] 2.840.1.092452.3.579.2.462 Unknown [id number] 2.840.1.824141.3.579.2.462 Unknown [id number] 2.840.1.254227.3.579.2.462 Unknown [id number] 2.840.1.391363.3.579.2.462 Unknown [id number] 2.840.1.437197.3.579.2.462 Unknown [id number] 2.840.1.500421.3.579.2.462 Unknown [id number] 2.840.1.946024.3.579.2.462 Unknown [id number] 2.840.1.874760.3.579.2.462 Unknown [id number] 2.840.1.032303.3.579.2.462 Unknown [id number] 2.840.1.665262.3.579.2.462 Unknown [id number] 2.840.1.852332.3.579.2.462 Unknown [id number] 2.840.1.847968.3.579.2.462 Unknown [id number] 2.840.1.156364.3.579.2.462 Unknown [id number] 2.840.1.304924.3.579.2.462 Unknown [id number] 2.840.1.267985.3.579.2.462 Unknown [id number] 2.16840.1.085043.3.579.2.462 Unknown [id number] 2.16.840.1.955465.3.579.2.462 Social History Date Type Detail Facility Start: 01-17-2018 End: 01-17-2018 Assertion Unknown if ever smoked [facility] Work Phone: Start: 04-07-2019 End: 08-26-2024 Never smoked tobacco (finding) [facility] Sex Assigned At [facility] Start: 04-06-2022 Tobacco use and exposure Smokeless tobacco non-user [facility] Start: 04-06-2022 Alcohol intake Current non-dr emergency management specialist of alcohol (finding) [facility] Start: 1940 Sex Assigned At Not on file [facility] Start: 05-25-2013 End: 05-31-2024 Sex Female (finding) [facility] Start: 1940 Sex Assigned At Female [facility] Sex Female [facility] Medical Equipment Procedure Code Equipment [...] hecks q2hrs Performed Other: 7AM - 4PM [facility] 02-10-2024 Functional Status Financial gaston gement, Home management, Laundry, Meal preparation, Personal ADL, Shopping [facility] 02-10-2024 Functional Status Sup [facility] 02-10-2024 Functional Status Identified as high risk, Door open, Non-Slip footwear, Room check performed [facility] 02-10-2024 Functional Status Jerrell Garcia [facility] 02-10-2024 Functional Status Jerrell Garcia [facility] 02-10-2024 Functional Status Jerrell [facility] 02-09-2024 [facility] 01-21-[facility] Functional Status Minimum assistance [facility] 01-21-2024 Functional Status Independent [facility] 12-09-2023 Functional Status Minimum assistance [facility] 12-09-2023 Functional Status ID band on, Call device within reach, Bed in low position, Wheels locked, Upper/Half-Length side-rails up, Visitor at bedside, Safety level maintained [facility] 11-29-2023 Functional Status Up ad nazario [facility] 11-29-2023 Functional Status Standard Safet y ID band on, Call device within reach, Bed in low position, Wheels locked, Upper/Half-Length side-rails up, Visitor at bedside [facility] 06-19-2022 Functional Status Sensory Deficits None [facility] 12-25-2021 Functional Status Independent Jerrell [facility] 12-06-2021 Functional Status None Jerrell [facility] 12-06-2021 Functional Status Room check performed [facility] 12-06-2021 Functional Status Jerrell [facility] 12-06-2021 Functional Status Jerrell [facility] 12-05-2021 Functional Status Jerrell [facility] 12-05-2021 Functional Status Jerrell [facility] 12-05-2021 Functional Status Mod A 1 Jerrell [facility] 12-04-2021 Functional Status Single level home [facility] 12-04-2021 Functional Status Jerrell [facility] 12-04-2021 Functional Status Jerrell [facility] 12-04-2021 Functional Status Jerrell [facility] 12-04-2021 Functional Status Jerrell [facility] 12-04-2021 Functional Status SCD On/Re-appl ied bilateral knee high [facility] 12-03-2021 Functional Status Ambulation in Room [facility] Mental Status Date Assessment Result Facility 02-10-2024 Mental Status Not oriented to time, Forgetful, Follows simple commands [facility] 02-09-2024 Mental Status [facility] 02-09-2024 Mental Status [facility] 01-21-2024 Mental Status Orientation Not oriented to situation, Forgetful [facility] 01-21-2024 Mental Status [facility] 12-09-2023 Mental Status Orientation Oriented x 4 [facility] 12-09-2023 Mental Status [facility] 11-29-2023 Mental Status Orientation Oriented x 4 [facility] 11-29-2023 Mental Status [facility] 12-25-2021 Mental Status Orientation Oriented x 4 [facility] 12-06-2021 Mental Status Oriented x 4, Forgetful [facility] 12-06-2021 Mental Status [facility] 12-06-2021 Mental Status [facility] Clinical Notes 12-03-2021 to 07-24-2024 Note Date & Type Note Facility 07-24-2024 Discharge summary [facility] 07-24-2024 Radiology Diagnostic study note [facility] Imaging Services [address] [place] [address] HIP, UNI W/ Pelvis 2-3 Views MR#: [id number] Acct: [id number] Name: CT DALTON Rep #: [id number] : 1940 F 83 From: Jane Vance MD PCP: Dr. Jairon Medel MD Status: R EG ER Study:HIP, UNI W/ Pelvis 2-3 Views Date of Ex am: 07/24/24 Exam# [id number] Ordering Dr: Sharon Harry MD PROCEDURE: HIP, [...] Right hip moderate degenerative changes. Reading Location: [place] [address] CC: Dr. Jairon Medel MD; Dr. Jean Claude Harry MD ~ Intertype Operator: Signed [facility] 02-10-2024 Hospital Discharge instructions Patient Education 02/10/2024 15:03:52 Dementia, Phlr-oq-Kqdt Dementia Dementia is a condition that affects [...] Follow these instructions at home: Medicines Take apuv-dmh-ocoqqgh and prescription medicines only as told by [...] 01/07/2009 Document Revised: 04/11/2019 Document Reviewed: 04/11/2019 [employer] Patient Education 2020 Advise Only. Follow Up Care 02/09/2024 19:37:05 With:LARRY THOMAS DO Address: [address] [place] [phone] When:02/16/2024 09:30:00 Comments:This is your post-hospital appointment. Follow-up as scheduled. [facility] 02-10-2024 Note Discharge Instructions Thank you for allowing [facility] to assist you with your healthcare needs. The following is important discharge information regarding your hospital visit. Your Care Team SUSY ALBRIGHT APRN-SHAMEKA Your Diagnosis (HFpEF) heart failure with preserved ejection fraction Dementia Weakness What to do next Scheduled Follow-Up Appointments Appointment Type When With Where Contact Information StatusPC OV 02/16/2024 09:30 AM EST LARRY THOMAS DO [address] [phone] Confirmed Follow Up Appointments Follow Up with LARRY THOMAS DO When:02/16/2024 09:30 AM EST Where:[address] [place] [address] [phone] Additional Information: This is your post-hospital appointment. [...] may report side effects to FDA at 9-829-PVH-7638. What other drugs will affect memantine? Tell [...] may interact with memantine, including prescription and hbyx-sqe-bxnjdmw medicines, vitamins, and herbal products. Not all [...] to ensure that the information provided by [employer]. ('[employer]') is accurate, up-to-date, and complete, but no guarantee is made to that effect. Drug information contained herein may be time sensitive. eInstruction [employer] information has been compiled for use by healthcare practitioners and consumers in the [place] and therefore [employer]Instruction [employer] does not warrant that uses outside of the [place] are appropriate, unless specifically indicated otherwise. [employer] drug information does not endorse drugs, diagnose patients or recommend therapy. [employer] drug information is an informational resource designed [...] effective or appropriate for any given patient. [employer] does not assume any responsibility for any aspect of healthcare administered with the aid of information [employer] provides. The information contained herein is not intended to cover all possible uses, directions, precautions, warnings, drug interactions, allergic reactions, or adverse effects. If you have questions about the drugs you are taking, check with your doctor, nurse or pharmacist. Copyright 7664-7724 [employer]. Version: 5.01. Revision Date: 09/21/2022. Education Materials [...] Follow these instructions at home: Medicines Take qbgq-uad-ihuyojb and prescription medicines only as told by [...] 01/07/2009 Document Revised: 04/11/2019 Document Reviewed: 04/11/2019 [employer] Patient Education 2020 [employer] Additional Information VACCINATE! IT SAVES LIVES! Members of the community who have not yet received the COVID-19 vaccine and would like to receive it can visit one of [facility] vaccine clinics. There are many vaccine clinic locations within the [facility]. For locations and available times, please visit https://gettheshot.coronavirus.[place].gov/. It is important to note that some COVID mobile vaccine clinics are held outdoors and may be canceled in rainy or stormy conditions. To learn more about pediatric vaccinations (ages 5-11), we invite you to visit the [employer] webpage. https://www.AIFOTECs.org/pag es/5481-Inyrr-Gvfohvfzaee-Frequent xq-Myyof-Icfkyxbvf.html To learn more about the COVID-19 vaccine, we invite you to visit the CDC website for a list of frequently asked questions.https://www.cdc.gov/armando navirus/2019-ncov/vaccines/faq.htm l [facility] Patient Portal Access Instructions: Stay connected with your healthcare team and access your personal medical information anytime with the [facility] Patient Portal. Please follow the directions below to create your [employer] account: 1.Access the email account you provided upon registration to the hospital/physician office.2.Look for an invitation email from [facility].3.Open the email and access the invitation link: Accept Invitation to [facility].4.Fill in the required alejandro to create your account. To access your account, visit [email or web address] SecurityOneChart. Click the blue button labeled Access Patient [...] you will allow to register on the [facility] Patient Portal for access to your information. You can also access the [employer] Patient Portal on the [employer] angelica. Simply click on Patient Portal and then log into your account. If you would like to receive a full copy of your medical records, please contact the [facility] Medical Records Department by calling [phone], Wednesday through Wednesday between 8 a.m. and [...] Call your local pharmacy or go to [email or web address] to find one close to you.3.Make use of household items: Use cat litter or old coffee grounds to dispose medications if other options are not available. Mix your drugs with these household products, seal them in an airtight container and throw it into the garbage. Call [facility]: [phone] to be sure your drugs can be [...] CHART COPY. Signatures Patient Education Materials Dementia, Hntu-pn-Lwuc Medication Leaflets memantine My discharge plan and instructions have been reviewed and explained to me and I,CT DALTON understand my current condition and have read and understand these discharge instructions. I have received a written copy of the plan/instructions. If I have questions, I am aware that I should contact my doctor. Patient/Caser Signature: Date/Time: Relationship to Patient: ___ Witness Name/Signature: Date/Time: [facility] 02-10-2024 Evaluation + Plan note Extrac yamilet from: Title:History and Physical Author:SUSY ALBRIGHT APRN-YARDAGE CONTROL OPERATOR FORMING Date:02/10/24 1. Weakness 2. (HFpEF) heart failure [...] Date:02/16/2024 09:30:00 AM Scheduled Provider:LARRY THOMAS DO Location:[facility] Appointment Type:PC OV [facility] 01-02-2025 Note Date of Service 02/10/24 Chief Complaint patient called EMS with complaint of BLE swelling. patient poor historian but continues to report BLE swelling on arrival. also states that she feels weak. History of Present Illness 83 year old female with past medical history of dementia, urinary frequency, dizziness, breast cancer, CKD Stage 3, anemia, HLD, HFpEF. Patient presented to [facility] ED on 02/09/24 due to family [...] by SUSY ALBRIGHT on 02/10/2024 10:21 AM [facility]01-01-2025 Note* Exam Date Time Procedure Performing Provider Status 02/09/24 8:10 PM XR Chest 1 View EILEEN CHRISTINE DO; Arnaldo h (Verified) [id number] ORIGINAL EXAMINATION: ONE XRAY VIEW OF THE [...] Date: 02/09/2024 9:08:10 PM Ordering Provider: TRIXIE BAORNE [facility]01-01-2025 Note* Exam Date Time Procedure Performing Provider Status 02/09/24 7:59 PM EKG [ED AOH] - CV MD TRIXIE BARONE MD; Auth (Verified) ECG Final Report Sinus rhythm LVH by voltage Inferior infarct, old Anterior Q waves, possibly due to LVH Electronic Signature: MD TRIXIE BARONE MD 02/09/2024 20:03:00 [facility]12-13-2024 Hospital Discharge instructions Patient Education 01/21/2024 [...] mid-urethra. Front view of female urinary tract. [id number] [employer] [address] [place] [address]. All rights reserved. This information is not intended as a substitute for professional medical care. Always follow yourhealthcare professional's instructions. Follow Up Care 01/21/2024 09:33:55 With:LARRY THOMAS DO Address: [address] [facility] [place], [place] [phone]- [phone] When:2-4 days [facility] 12-13-2024 Note Discharge Instructions Thank you for allowing [facility] to assist you with your healthcare needs. The following is importantdischarge information regarding your hospital visit. Diagnosis from Today's Visit Bladder pain What to Do Next Instructions from Your Care Team No qualifying data available. Post Acute Orders No qualifying data available. You Need to Schedule the Following Appointments Follow Up with LARRY THOMAS DO When:Within 2-4 days Where:[address] [facility] [place] [address]- [phone] Allergies NKA Medications Please ask your primary [...] mid-urethra. Front view of female urinary tract. [phone] [employer] [address] [place] [address], [place] [address]. All rights reserved. This information is not intended as a substitute for professional medical care. Always follow yourhealthcare professional's instructions. Additional Information VACCINATE! IT SAVES LIVES! Members of the community who have not yet received the COVID-19 vaccine and would like to receive it can visit one of [facility] vaccine clinics. There are many vaccine clinic locations within the [facility]. For locations and available times, please visit www.gettheshot.coronavirus.[place].gov/. It is important to note that some COVID mobile vaccine clinics are held outdoors and may be canceled in rainy or stormy conditions. To learn more about pediatric vaccinations (ages 5-11), we invite you to visit the [facility] webpage. https://www.[facility].org/pages/4570-Rxzny-Slszqsdrbxx-Iakkricrij-Wrqoe-Mlq stions.htmlTo learn more about the COVID-19 vaccine, we invite you to visit the CDC website for a list of frequently asked questions. https://www.cdc.gov/coronavirus/2019-ncov/vaccines/faq.html [facility] Patient Portal Access Instructions: Stay connected with your healthcare team and access your personal medical information anytime with the [facility] Patient Portal. If you would like a full copy of your medical records please contact the [facility] Medical Records Department Wednesday through Wednesday between 8a.m. and 4:30p.m. Please follow the directions below to access the portal: 1.Access the email account you provided upon registration to the hospital.2.Look for an invitation email from [facility].3.Open the email and access the invitation link: Accept Invitation to [facility]4.Fill in the required alejandro to create your [...] you will allow to register on the [facility] Patient Portal for access to your information. You can also access the [facility] Patient Portal on the [employer]. Simply click on Health Records under frestyl and then click on the [facility] logo. [...] Call your local pharmacy or go to [email or web address]://bCODE.[email or web address] to find one close to you.3.Make use of household items: Use cat litter or old coffee grounds to dispose medications if other options arenot available. Mix your drugs with these household products, seal them in an airtight container andthrow it into the garbage. Call [facility]: [phone] to be sure your drugs can be [...] aware that I should contact my doctor. Patient/Caser Signature: Date/Time: Relationship to Patient: Witness Name/Signature: Date/Time: [facility]11-12-2024 Note ORIGINAL EXAMINATION: AP lateral obliques [...] Sign Date: 12/21/2023 4:34:05 PM Ordering Provider: [facility]11-12-2024 Note ORIGINAL EXAMINATION: TWO XRAY [...] Sign Date: 12/21/2023 4:21:17 PM Ordering Provider: [facility]11-09-2024 Note. MICRO - Microbiology PROCEDURE: [...] Locations *1: This test was performed at: [facility], [address] [place] [address], [phone]- , [facility]10-31-2024 Hospital Discharge instructions Patient Education 12/09/2023 [...] mid-urethra. Front view of female urinary tract. 6857-0529 [employer] [address] [place] [address]. All rights reserved. This information is not intended as a substitute for professional medical care. Always follow yourhealthcare professional's instructions. Follow Up Care 12/09/2023 08:33:51 With:LARRY THOMAS DO Address: [address] [place] [phone] When:2-4 days [facility] 10-31-2024 Note Discharge Instructions Thank you for allowing [facility] to assist you with your healthcare needs. The following is importantdischarge information regarding your hospital visit. Diagnosis from Today's Visit Urinary frequency What to Do Next Instructions from Your Care Team No qualifying data available. Post Acute Orders No qualifying data available. You Need to Schedule the Following Appointments Follow Up with LARRY THOMAS DO When:Within 2-4 days Where:[address] [place] [phone] Allergies NKA Medications Please ask your primary [...] mid-urethra. Front view of female urinary tract. 8603-4646 [employer] [address] [place] [address], [place] [address]. All rights reserved. This information is not intended as a substitute for professional medical care. Always follow yourhealthcare professional's instructions. Additional Information VACCINATE! IT SAVES LIVES! Members of the community who have not yet received the COVID-19 vaccine and would like to receive it can visit one of [facility] vaccine clinics. There are many vaccine clinic locations within the [facility]. For locations and available times, please visit www.gettheshot.coronavirus.[place].gov/. It is important to note that some COVID mobile vaccine clinics are held outdoors and may be canceled in rainy or stormy conditions. To learn more about pediatric vaccinations (ages 5-11), we invite you to visit the [facility] webpage. https://www.[facility].org/pages/8246-Cyamw-Imaciaxaawa-Aoedxghxsc-Geait-Vbu stions.htmlTo learn more about the COVID-19 vaccine, we invite you to visit the CDC website for a list of frequently asked questions. https://www.cdc.gov/coronavirus/2019-ncov/vaccines/faq.html [facility] Patient Portal Access Instructions: Stay connected with your healthcare team and access your personal medical information anytime with the [facility] Patient Portal. If you would like a full copy of your medical records please contact the [facility] Medical Records Department Wednesday through Wednesday between 8a.m. and 4:30p.m. Please follow the directions below to access the portal: 1.Access the email account you provided upon registration to the hospital.2.Look for an invitation email from [facility].3.Open the email and access the invitation link: Accept Invitation to [facility]4.Fill in the required alejandro to create your account. Sign into [email or web address] with your username and password that you [...] you will allow to register on the [facility] Patient Portal for access to your information. You can also access the [facility] Patient Portal on the [employer]. Simply click on Health Records under frestyl and then click on the [facility] logo. [...] Call your local pharmacy or go to http://bCODE.[facility]/9P6Cm1o to find one close to you.3.Make use of household items: Use cat litter or old coffee grounds to dispose medications if other options arenot available. Mix your drugs with these household products, seal them in an airtight container andthrow it into the garbage. Call [facility]: [phone] to be sure your drugs can be [...] aware that I should contact my doctor. Patient/Caser Signature: Date/Time: Relationship to Patient: Witness Name/Signature: Date/Time: [facility]10-21-2024 Hospital Discharge instructions Patient Education 11/29/2023 [...] or swelling over your back or spine [phone] [employer] [address] [place] [address], [place] [address]. All rights reserved. This information is not intended as a substitute for professional medical care. Always follow yourhealthcare professional's instructions. Follow Up Care 11/29/2023 08:56:34 With:Go to emergency room if symptoms worsen Address:Unknown When:2-4 days With:LARRY THOMAS DO Address: [address] [place] [phone] When:2-4 days [facility] 10-21-2024 Note Discharge Instructions Thank you [...] with LARRY THOMAS DO When:Within 2-4 days Where:[address] [place] [phone] Allergies NKA Medications Please ask your primary [...] or swelling over your back or spine [phone] [employer] [address] [place] [address], [place] [address]. All rights reserved. This information is not intended as a substitute for professional medical care. Always follow yourhealthcare professional's instructions. Additional Information VACCINATE! IT SAVES LIVES! Members of the community who have not yet received the COVID-19 vaccine and would like to receive it can visit one of [facility] vaccine clinics. There are many vaccine clinic locations within the [facility]. For locations and available times, please visit www.gettheshot.coronavirus.[place].gov/. It is important to note that some COVID mobile vaccine clinics are held outdoors and may be canceled in rainy or stormy conditions. To learn more about pediatric vaccinations (ages 5-11), we invite you to visit the [facility] webpage. https://www.[facility].org/pages/4641-Azdwt-Lyejqbodfdy-Njbdbuzocl-Ekqqx-Ayv stions.htmlTo learn more about the COVID-19 vaccine, we invite you to visit the CDC website for a list of frequently asked questions. https://www.cdc.gov/coronavirus/2019-ncov/vaccines/faq.html [facility] Patient Portal Access Instructions: Stay connected with your healthcare team and access your personal medical information anytime with the [facility] Patient Portal. If you would like a full copy of your medical records please contact the [facility] Medical Records Department Wednesday through Wednesday between 8a.m. and 4:30p.m. Please follow the directions below to access the portal: 1.Access the email account you provided upon registration to the hospital.2.Look for an invitation email from [facility].3.Open the email and access the invitation link: Accept Invitation to [facility]4.Fill in the required alejandro to create your account. Sign into [email or web address] with your username and password that you [...] you will allow to register on the [facility] Patient Portal for access to your information. You can also access the [facility] Patient Portal on the [employer] angelica. Simply click on Health Records under frestyl and then click on the [facility] logo. [...] Call your local pharmacy or go to http://bCODE.[facility]/5L3Dv0v to find one close to you.3.Make use of household items: Use cat litter or old coffee grounds to dispose medications if other options arenot available. Mix your drugs with these household products, seal them in an airtight container andthrow it into the garbage. Call [facility]: [phone] to be sure your drugs can be [...] aware that I should contact my doctor. Patient/Caser Signature: Date/Time: Relationship to Patient: Witness Name/Signature: Date/Time: [facility]10-21-2024 Note ORIGINAL HISTORY: Pain COMPARISON: No [...] Sign Date: 11/29/2023 11:51:51 AM Ordering Provider: [facility]03-06-2024 Note ORIGINAL EXAMINATION: CT OF THE [...] Date: 04/14/2023 10:35:22 AM Ordering Provider: [facility]04-26-2023 Miscellaneous Notes* Telephone Encounter - Brenton Jennings RN - 06/03/2022 11:26 AM EDT Received a request from [facility] for all of Ct's left breast cancer treatment medical records. Faxed the request to medical records on [facility], fax confirmation sheet received. Brenton Jennings RN [facility] Note ORIGINAL EXAMINATION: ULTRASOUND OF THE [...] 04/15/2022 10:15:33 AM Ordering Provider: LARRY THOMAS [facility]03-08-2023 Note ORIGINAL EXAMINATION: ULTRASOUND OF THE [...] Sign Date: 04/15/2022 10:15:33 AM Ordering Provider: [facility]02-28-2023 NoteHNO ID: [id number] Author: Paula Alaniz MD Service: ? Author [...] needle core breast biopsies on 03/23/2022 at [facility]. Findings of fat necrosis, inflammation and [...] cancer Kidney Disease Sister Heart disease Brother [place] The review of systems data was entered by the nurse and reviewed by co Nursing Notes: Mini Brooke LPN 04/06/2022 9:50 [...] of skin c (more content not included)... [facility]02-28-2023 History of Present illness Narrative* Paula Alaniz [...] needle core breast biopsies on 03/23/2022 at [facility]. Findings of fat necrosis, inflammation and [...] cancer Kidney Disease Sister Heart disease Brother [place] The review of systems data was entered [...] her studies and testing were done at [facility], I have recommended that she proceed with her evaluation/treatment there. The breast radiologists there have recommended wire localization lumpectomy of the left breast. I have told her that I could offer her the same but it would be at [facility]. She states thatshe would prefer [facility] as it is closer to home. [...] Low Paula Alaniz MD documented [facility] Nurse Note* Mini Brooke, MATILDE - [...] ago Mini Brooke LPN documented in this [facility]St[facility] Note ORIGINAL FROM: [place] [id number] PROCEDURE FOR: CT DALTON [address] [place] [phone] Home: PID#: [id number] Exam#: [id number] : 1940 Age: 81 TO: ALANNA WRIGHT DO [facility] [place] [address] Fax: NO FAX EXAMINATION: ULTRASOUND OF THE [...] ALANNA WRIGHT CLINICAL: MAMMOGRAPHIC DENSITY LEFT BREAST. Vault Manager: JOSIE RUIZ RT(R) RDMS letter sent: Biopsy Recommended BI-RADS 4 and 5 Ultrasound BI-RADS: 4 Suspicious for malignancy [facility]12-15-2022 Note ORIGINAL FROM: [place] [id number] [place] [address] PROCEDURE FOR: CTSophia DALTON [address] [place] [phone] Home: PID#: [id number] Exam#: [id number] : 1940 Age: 81 TO: ALANNA WRIGHT DO [facility] [place] [address] Fax: NO FAX EXAMINATION: ULTRASOUND OF THE [...] ALANNA WRIGHT CLINICAL: MAMMOGRAPHIC DENSITY LEFT BREAST. Vault Manager: JOSIE RUIZ RT(R) RDMS letter sent: Biopsy Recommended BI-RADS 4 and 5 Ultrasound BI-RADS: 4 [facility] Discharge instructions Patient Education 12/25/2021 17:00:50 Dizziness, Uncertain Cause Dizziness (Uncertain Cause) Dizziness is a common symptom. It may be described as lightheadedness, spinning, or feeling like you are going to faint. Dizziness can have many causes. Be sure to tell the healthcare provider about: All medicines you take, including prescription, tvjr-lud-rlzjekq, herbs, and supplements Any other symptoms you [...] Chest, arm, neck, back, or jaw pain 1269-7871 [employer] [address] [place] [address], [place] [address]. All rights reserved. This information is not [...] medicine was given, you may use an ioyf-vva-fwpudgl product made for clearingearwax (such as Debrox or Murine Earwax Drops). These contain carbamide peroxide and are available ohsp-jcz-tsekbec. Lie down with the blocked ear facing [...] ear Headache, neck pain or stiff neck 5942-1926 [employer] [address] [place] [address]. All rights reserved. This information is not intended as a substitute for professional medical care. Always follow yourhealthcare professional's instructions. Follow Up Care 12/25/2021 15:48:16 With:ALANNA WRIGHT DO Address: [address] [place] [address] [place] [phone]- [phone] When:2-4 days [facility] 11-17-2022 Note Discharge Instructions Thank you for allowing [facility] to assist you with your healthcare needs. [...] WRIGHT DO When Within 2-4 days Where: [address] [place] [phone] Allergies NKA Medications Please ask your primary [...] about: All medicines you take, including prescription, vabp-snc-gyeefot, herbs, and supplements Any other symptoms you [...] Chest, arm, neck, back, or jaw pain 7115-1939 [employer] [address] [place] [address]. All rights reserved. This information is not [...] medicine was given, you may use an plzh-bpa-mzxfnsx product made for clearingearwax (such as Debrox or Murine Earwax Drops). These contain carbamide peroxide and are available jvqf-hff-kbegtmo. Lie down with the blocked ear facing [...] ear Headache, neck pain or stiff neck 4005-7107 [employer] [address] [place] [address], [place] [address]. All rights reserved. This information is not intended as a substitute for professional medical care. Always follow yourhealthcare professional's instructions. Additional Information VACCINATE! IT SAVES LIVES! Members of the community who have not yet received the COVID-19 vaccine and would like to receive it can visit one of [facility] vaccine clinics. There are many vaccine clinic locations within the [facility]. For locations and available times, please visit www.gettheshot.coronavirus.[place].org. It is important to note that some COVID mobile vaccine clinics are held outdoors and may be canceled in rainy orstormy conditions. To learn more about pediatric vaccinations (ages 5-11), we invite you to visit the [facility] webpage. https://www.[facility].org/pages/8616-Vwvkn-Cjyirjdrbbl-Ujpsfeuvzy-Onltw-Jua stions.htmlTo learn more about the COVID-19 vaccine, we invite you to visit the [facility] website for a list of frequently asked questions. https://[email or web address]/assets/Wkkdkzuv-qru-Ajruymeo/igsmi-Vtyeqqh-Perklrbngb _Asked-Questions.pdf [facility] Access Instructions: Stay connected with your healthcare team and access your personal medical information anytime with the [facility] Patient Portal. If you would like a full copy of your medical records please contact the [facility] Medical Records Department Wednesday through Wednesday between 8a.m. and 4:30p.m. Please follow the directions below to access the portal: 1.Access the email account you provided upon [facility] to [facility].2.Look for an invitation email from [facility].3.Open the email and access the invitation link: Accept Invitation to [facility]4.Fill in the required alejandro to create your account. Sign into [email or web address] with your username and password that you [...] you will allow to register on the [facility] Patient Portal for access to your information. You can also access the [facility] Patient Portal on the [employer]. Simply click on Health Records under ReadWaveData and then click on the [facility] logo. [...] Call your local pharmacy or go to http://bit.[facility]/6F4Zl9s to find one close to you.3.Make use of household items: Use cat litter or old coffee grounds to dispose medications if other options arenot available. Mix your drugs with these household products, seal them in an airtight container andthrow it into the garbage. Call [facility]: [phone] to be sure your drugs can be [...] aware that I should contact my doctor. Patient/Caser Signature: Date/Time: Relationship to Patient: Witness Name/Signature: Date/Time: [facility] [id number] Hospital Discharge instructions Patient Education 12/06/2021 14:31:46 Dizziness, Ekfj-xo-Qocz Dizziness Dizziness is a common problem. It [...] balance is fine. 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 Take zkeg-rll-gieigog and prescription medicines only as told by [...] 01/14/2012 Document Revised: 01/28/2018 Document Reviewed: 02/11/2017 [employer] Patient Education 2020 [employer] 12/06/2021 14:31:38 Fall Prevention and Home Safety, Kwjb-ps-Owmf Fall Prevention and Home Safety Falls cause [...] Document Reviewed: 04/26/2012 ExitCare Patient Information 2015 [employer]. This information is not intended to replace advicegiven to you by your health care provider. Make sure you discuss any questions you have with your health care provider. Follow Up Care 12/03/2021 14:18:30 With:[facility], [phone] Address:Unknown When:1-2 days With:ALANNA WRIGHT DO Address: [address] [place] [phone]- When:1-2 days Comments:Please call the office to schedule a follow up appointment [facility] 10-29-2022 Note Discharge Instructions Thank you for allowing [facility] to assist you with your healthcare needs. [...] Bilateral w/ Fer 12/12/2021 03:00 PM [facility] Follow Up Appointments Follow Up with [facility], [phone] When Within 1-2 days Follow Up with ALANNA WRIGHT DO When Within 1-2 days Why: Please call the office to schedule a follow up appointment Where: [facility] [place] [address]- The Following Activity and Diet Have Been [...] balance is fine. 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 Take ytix-pth-tkakipx and prescription medicines only as told by [...] 01/14/2012 Document Revised: 01/28/2018 Document Reviewed: 02/11/2017 [employer] Patient Education 2020 [employer] Fall Prevention and Home Safety Falls [...] Document Reviewed: 04/26/2012 ExitCare Patient Information 2015 [employer] [facility]. This information is not intended to replace advicegiven to you by your health care provider. Make sure you discuss any questions you have with your health care provider. Additional Information VACCINATE! IT SAVES LIVES! Members of the community who have not yet received the COVID-19 vaccine and would like to receive it can visit one of [facility] vaccine clinics. There are many vaccine clinic locations within the [facility]. For locations and available times, please visit https://[email or web address].[place].gov/. It is important to note that some COVID mobile vaccine clinics are held outdoors and may be canceled in rainy or stormy conditions. To learn more about pediatric vaccinations (ages 5-11), we invite you to visit the [facility] webpage. https://www.[facility].org/pages/7797-Gempk-Ohsqqfhappb-Xzagfmrvrp-Tywbv-Bnj stions.htmlTo learn more about the COVID-19 vaccine, we invite you to visit the [employer] website for a list of frequently asked questions. https://Localbase.[employer]/assets/Hyqhcybr-eci-Frbmpduv/hwnla-Cwuhras-Lpgwssctdk _Asked-Questions.pdf [facility] Patient Portal Access Instructions: Stay connected with your healthcare team and access your personal medical information anytime with the [facility] Patient Portal.If you would like a full copy of your medical records, please contact the [facility] Medical Records Department, Wednesday through Wednesday between 8a.m. and 4:30p.m. Please follow the directions below to access the portal: 1.Access the email account you provided upon registration to the [facility].2.Look for an invitation email from [facility].3.Open the email and access the invitation link: Accept Invitation to [facility]4.Fill in the required alejandro to create your account. Sign into [email or web address] with your username and password that you [...] you will allow to register on the [facility] Patient Portal for access to your information. You can also access the [facility] Patient Portal on the [employer]. Simply click on Health Records under frestyl and then click on the [employer] logo. HOW TO SAFELY DISPOSE OF PRESCRIPTION [...] Call your local pharmacy or go to http://bCODE.[facility]/6K0Zp7l to find one close to you.3.Make use of household items: Use cat litter or old coffee grounds to dispose medications if other options arenot available. Mix your drugs with these household products, seal them in an airtight container andthrow it into the garbage. Call [facility]: [phone] to be sure your drugs can be [...] CHART COPY. Signatures Patient Education Materials Dizziness, Ctxe-rq-Ezol Fall Prevention and Home Safety, Ujjg-yx-Hkex Medication Leaflets My discharge plan and instructions have been reviewed and explained to me and I,CT DALTON understand my current condition and have read and understand these discharge instructions. I have received a written copy of the plan/instructions. If I have questions, I am aware that I should contact my doctor. Patient/Caser Signature: Date/Time: Relationship to Patient: Witness Name/Signature: [id number] Note Discharge Instructions Thank you for allowing [facility] to assist you with your healthcare needs. [...] Bilateral w/ Fer 12/12/2021 03:00 PM EDT [facility] Follow Up Appointments Follow Up with [facility], [phone] When Within 1-2 days Follow Up with ALANNA WRIGHT DO When Within 1-2 days Why: Please call the office to schedule a follow up appointment Where: [address] [place] [address] [place] [address]- The Following Activity and Diet Have Been [...] it can visit one of [facility] vaccine clinics. There are many vaccine clinic locations within the [facility]. For locations and available times, please visit https://[email or web address].[place].gov/. It is important to note that some COVID mobile vaccine clinics are held outdoors and may be canceled in rainy or stormy conditions. To learn more about pediatric vaccinations (ages 5-11), we invite you to visit the [facility] webpage. [email or web address]/[email or web address] [email or web address].htmlTo learn more about the COVID-19 vaccine, we invite you to visit the [facility] website for a list of frequently asked questions. [email or web address] [facility] Patient Portal Access Instructions: Stay connected with your healthcare team and access your personal medical information anytime with the [facility] Patient Portal.If you would like a full copy of your medical records, please contact the [facility] Medical Records Department, Wednesday through Wednesday between 8a.m. and 4:30p.m. Please follow the directions below to access the portal: 1.Access the email account you provided upon registration to the hospital.2.Look for an invitation email from [facility].3.Open the email and access the invitation link: Accept Invitation to [facility].Fill in the required alejandro to create your account. Sign into [email or web address] with your username and password that you [...] you will allow to register on the [facility] Patient Portal for access to your information. You can also access the [facility] Patient Portal on the [employer]. Simply click on Health Records under frestyl and then click on the [employer] logo. HOW TO SAFELY DISPOSE OF PRESCRIPTION [...] Call your local pharmacy or go to [email or web address] to find one close to you.3.Make use of household items: Use cat litter or old coffee grounds to dispose medications if other options arenot available. Mix your drugs with these household products, seal them in an airtight container andthrow it into the garbage. Call [facility]: [phone] to be sure your drugs can be [...] aware that I should contact my doctor. Patient/Caser Signature: Date/Time: Relationship to Patient: Witness Name/Signature: Date/Time: [facility]dg[facility]39 Discharge summary Date of Service 12/06/21 Discharge Diagnosis 1. Unsteady gait (R26.81 - ICD-10-CM) 2. Dizziness (R42 - ICD-10-CM) Dizziness ([id number] - PNED) HTN - Hypertension ([id number] - PNED) Additional Orders: Ordered: atenolol 25 mg oral tablet,Dose : 25 mg = 1 tab(s), Oral, qDay, # 30 tab(s), 0 Refill(s), Pharmacy: [facility]/pharmacy #[id number], 160, cm, 12/03/21 21:46:00 EDT, Height [...] CT head, chest x-ray, MRI brain, TTE, [place]- [place] unremarkable.ECG showed LBBB, no prior EKG [...] 100 mg daily, hydralazine 25 mg daily, fajdsfcxsazdiaabdcc97 mg daily, lisinopril 20 mg daily. In [...] schedule a follow up appointment Where: [address] [place] [address]- Follow Up Appointments No qualifying data available. Follow Up Labs/Studies Discharge Labs No Follow-up Labs Discharge Studies No Follow-up Studies Discharge Diet No qualifying data available. Discharge Activity No qualifying data available. Readmission Risk/Palliative Score No qualifying data available. Digitally Signed by CODY RILEY MD on 12/06/2021 11:43 AM [facility] [id number] Discharge summary Date of Service 12/06/21 Discharge Diagnosis 1. Unsteady gait (R26.81 - ICD-10-CM) 2. Dizziness (R42 - ICD-10-CM) Dizziness ([id number] - PNED) HTN - Hypertension ([id number] - PNED) Additional Orders: Ordered: atenolol 25 mg oral tablet,Dose : 25 mg = 1 tab(s), Oral, qDay, # 30 tab(s), 0 Refill(s), Pharmacy: [facility]/pharmacy #[id number], 160, cm, 12/03/21 21:46:00 EDT, Height [...] CT head, chest x-ray, MRI brain, TTE, [place]- [place] unremarkable.ECG showed LBBB, no prior EKG [...] 100 mg daily, hydralazine 25 mg daily, cjjlzycjzrijnijwffr89 mg daily, lisinopril 20 mg daily. In [...] to schedule a follow up appointment Where: [address] [place] [address] [place] [address]- Follow Up Appointments No qualifying data available. Follow Up Labs/Studies Discharge Labs No Follow-up Labs Discharge Studies No Follow-up Studies Discharge Diet No qualifying data available. Discharge Activity No qualifying data available. Readmission Risk/Palliative Score No qualifying data available. Digitally Signed by CODY RILEY MD on 12/06/2021 11:43 AM [facility] [id number] Note Chief Complaint Transition plan Transitional Action Points Currently is transition over to [facility] in [place] is able to accept Patient echo explained [...] are recommending SNF. She was excepted by [facility] in [place], will require COVID screen prior to transfer. [...] Rate18(DEC 06 03:45)18(DEC 05 14:26)20(DEC 05 08:09) SDY444(DEC 06 03:45)104(DEC 05 14:26)H 160(DEC 05 18:48) DBPL 53(DEC 06 03:45)L 53(DEC 05 18:48)70(DEC 05 23:53) Problem List/ Past Medical History Breast cancer Hypertension Medicare annual wellness visit, subsequent Memory impairment Mixed hyperlipidemia Osteoarthritis Postmenopausal state Right arm pain Vulvar lesion Leukoplakia of vulva Procedure/ Surgical History Lumpectomy of left breast Printing Film Stripper Tubal ligation Medication List Active Medications Ordered [...] presence of Magdalena Ashley. I Magdalena Ashley COMPLIANCE TESTER, personally performed the services described in this documentation, as described by Gladys Betancourt LPN in my presence and it is both accurate and complete. This document is transcribed using voice recognition software may contain typographical errors. Digitally Signed by MAGDALENA ASHLEY on 12/06/2021 09:45 AM [facility] [id number] Note ORIGINAL EXAMINATION: TWO XRAY VIEWS OF [...] 12/06/2021 12:06:38 AM Ordering Provider: FRIEDA HOLLAND [facility] [id number] Note Date of Service 12/05/2021 Subjective 81-year-old [...] ED documented asnegative. Patient was transfer from [place] to [facility] for further cardiovascular work-up. Orthostatics performed and [...] Zara no answer, called patient's son Ang [phone] Who states that patient's mental status has [...] FRIEDA HOLLAND MD on 12/05/2021 06:41 PM [facility] [id number] Note ORIGINAL EXAMINATION: TWO XRAY VIEWS OF [...] Date: 12/06/2021 12:06:38 AM Ordering Provider: FRIEDA [facility]10-28-2022 Note ORIGINAL EXAMINATION: MR Brain with [...] pathology. 2. Moderate parenchymal volume loss and ckgj-eh-twvcrfib chronic microvascular white matter ischemic disease. Interpreted by: Alanna Chin MD Preliminary Report By: Alnana Chin MD Electronically signed By Alanna Chin MD Dictated Date: 12/05/2021 1:36:40 PM Prelim Date: 12/05/2021 1:40:15 PM Sign Date: 12/05/2021 1:40:15 PM Ordering Provider: ANA WILSON [facility] [id number] Note ORIGINAL EXAMINATION: MR Brain with and [...] pathology. 2. Moderate parenchymal volume loss and mbqk-vm-bxcgljpb chronic microvascular white matter ischemic disease. Interpreted by: Alanna Chin MD Preliminary Report By: Alanna Chin MD Electronically signed By Alanna Chin MD Dictated Date: 12/05/2021 1:36:40 PM Prelim Date: 12/05/2021 1:40:15 PM Sign Date: 12/05/2021 1:40:15 PM Ordering Provider: [facility]10-28-2022 Note Date 12/05/2021 Chief complaint [...] notes on 12/04 recommending SNF. social services analyst notes on 12/04 patient remains [...] vulva Procedure/surgical history Lumpectomy of left breast Printing Film Stripper Tubal ligation Medication List Active Medications Ordered [...] by MAGDALENA ASHLEY on 12/05/2021 06:42 PM [facility] [id number] Note Date of Service 12/04/2021` Chief Complaint [...] ED documented asnegative. Patient was transfer from [place] to [facility] for further cardiovascular work-up. Orthostatics performed and negative. On review of telemetry patient with episodes of bradycardia will decre ase atenolol. Patient ordered for MRI TTE and carotid duplex. PT/OT evaluation pending. Patient seen and examined this morning Patient does appear to have advanced dementia She does know that she is in [place] but speaks in a roundabout way about [...] FRIEDA HOLLAND MD on 12/04/2021 03:40 PM [facility] SystemViumfkry83-30-7078 Note Chief Complaint Transition Plan. Transitional Action [...] Procedure/ Surgical History Lumpectomy of left breast Printing Film Stripper Tubal ligation Medication List Active Medications Ordered [...] by MAGDALENA ASHLEY on 12/04/2021 02:59 PM [facility] [id number] History and physical note [facility] History and Physical Date of Admission: 12/03/2021 Chief complaint: Dizziness History of present illness: History is taken from talking with the patient. Patient was accepted asa transfer from [place] emergency department by my colleague. Patient has [...] Postmenopausal state Right arm pain Vulvar lesion Printing Film Stripper Tubal ligation Family history: Mother: High blood [...] Rate18(DEC 03 21:30)16(DEC 03 14:53)20(DEC 03 14:26) SKZ525(DEC 03 21:30)136(DEC 03 21:30)H 187(DEC 03 16:20) [...] Appearance (POC): Clear (12/03/21 16:12:00) Urine Specific [place] (POC): <=1.005 Abnormal (12/03/21 16:12:00) Urine Glucose [...] Patient was accepted as a transfer from [facility] emergency department by my colleague [...] ANA WILSON MD on 12/03/2021 09:55 PM [facility] SystemDtxadltc65-29-2936 Note ORIGINAL EXAMINATION: CT OF THE HEAD [...] Date: 12/03/2021 4:02:30 PM Ordering Provider: BLANCA [facility]10-26-2022 Note ORIGINAL EXAMINATION: CT OF THE HEAD [...] Date: 12/03/2021 4:02:30 PM Ordering Provider: BLANCA [facility]10-26-2022 Evaluation + Plan noteExtracted from: Title:Clinical Document Author:ANA WILSON MD Date:12/03/21 [facility] History and Physical Date of Admission: 12/03/2021 Chief complaint: Dizziness History of present illness: History is taken from talking with the patient. Patient was accepted as a transfer from [place] emergency department by my colleague. Patient has [...] Postmenopausal state Right arm pain Vulvar lesion Printing Film Stripper Tubal ligation Family history: Mother: High blood [...] Rate18(DEC 03 21:30)16(DEC 03 14:53)20(DEC 03 14:26) RWL033(DEC 03 21:30)136(DEC 03 21:30)H 187(DEC 03 16:20) [...] Appearance (POC): Clear (12/03/21 16:12:00) Urine Specific [place] (POC): <=1.005 Abnormal (12/03/21 16:12:00) Urine Glucose [...] Patient was accepted as a transfer from [facility] emergency department by my colleague [...] MA Mammo Screening Bilateral w/ Fer 12/12/21 [facility] Discharge summary Author Jean Claude Harry [facility] Note Date/Time July 24, 2024 3:52 am [facility] Medical Records Department [address] [place] [address] Emergency Department Summary 07/24/24 MR#: [id number] Acct: [id number] Name: CT DALTON Rep #:[id number] : 1940 83 From: Jean Claude Harry [...] mg PO DAILY 04/20/17 04/27/17 08:00 History thjtfrfomfia-Ia-helj-minerals 1 ea PO DAILY 04/20/17 U nknown [...] range of motion. 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 Neurologically she is awake and [...] Right hip moderate degenerative changes. Reading Location: [place] [address] Right hip and pelvis x-ray, 3 views, [...] obviously lying in bed. Tylenol for pain. Lithia as needed for pain also. Print Language: Chilean Disposition Disposition: Home, Self Care What to do if you have Problems For any increased pain, shortness of breath, bleeding, nausea or vomiting, chestpain, or any unexpected problems, contact your Primary Care Provider. Call [facility] ([phone]) or report to the closest Emergency Room. Call 911 if necessary. 07/24/242 <Electronically signed by Jean Claude Harry MD> Cosigner Signature (if applicable): CC: Dr. Jairon Medel MD ~ Signed [facility] Work Phone: Evaluation + Plan note Future Appointments Appointment Date:05/05/2021 09:00:00 AM Scheduled Provider:ALANNA WRIGHT DO Location:[facility] Appointment Type:[facility] Evaluation + Plan note Future Appointments Appointment Date:11/06/2021 08:30:00 AM Scheduled Provider:ALANNA WRGIHT DO Location:[facility] [place] Appointment Type:PC Wellness Medicare with Labs Future Scheduled Tests Radiology* XR Humerus Minimum 2 Views Right 05/05/21 [facility] evaluation + Plan note Future Appointments Appointment Date:01/15/2022 02:00:00 PM Scheduled Provider: Location:[facility] Appointment Type:MA Mammogram Screening Bilateral w/ Fer Appointment Date:02/25/2022 10:00:00 AM Scheduled Provider:LARRY THOMAS DO Location:[facility] Appointment Type:PC COMPLIANCE TESTER Appointment Date:03/13/2022 10:30:00 AM Scheduled Provider:ALANNA WRIGHT DO Location:[facility] [place] Appointment Type:PC OV Future Scheduled Tests Radiology* MA Mammo Screening Bilateral w/ Fer 01/15/22 [facility] evaluation + Plan note Future Appointments Appointment Date:02/25/2022 10:00:00 AM Scheduled Provider:LARRY THOMAS DO Location:[facility] Appointment Type:PC COMPLIANCE TESTER Appointment Date:03/13/2022 10:30:00 AM Scheduled Provider:ALANNA WRIGHT DO Location:[facility] [place] Appointment Type:PC OV Future Scheduled Tests Radiology* US Biopsy Breast Left 1st Lesion 01/22/22 [facility] evaluation + Plan note Future Appointments Appointment Date:03/05/2022 10:00:00 AM Scheduled Provider:LARRY TOHMAS DO Location:[facility] Appointment Type:PC COMPLIANCE TESTER Appointment Date:03/13/2022 10:30:00 AM Scheduled Provider:ALANNA WRIGHT DO Location:[facility] [place] Appointment Type:PC OV Appointment Date:03/23/2022 01:00:00 PM Scheduled Provider: Location:[facility] Appointment Type:US Biopsy Breast Left 1st Lesion Future Scheduled Tests Radiology* US Biopsy Breast Left 1st Lesion 03/23/22 [facility] evaluation + Plan note Future Appointments Appointment [...] 1st Lesion 03/23/22 * US Renal 03/09/22 [facility] Evaluation + Plan note Future Appointments Appointment Date:04/16/2022 04:30:00 PM Scheduled Provider:LARRY THOMAS DO Location:[facility] Appointment Type:PC OV Future Scheduled Tests Laboratory* Hepatic Function Panel 04/13/22 Radiology* US Renal 03/09/22 [facility] Evaluation + Plan note Future Appointments Appointment Date:04/15/2022 07:30:00 AM Scheduled Provider: Location:[facility] Appointment Type:US Renal Appointment Date:04/16/2022 04:30:00 PM Scheduled Provider:LARRY THOMAS DO Location:[facility] Appointment Type:PC OV Appointment Date:05/28/2022 10:00:00 AM Scheduled Provider:ANISA GOMEZ MD Location:[facility] Appointment Type:LIYAH COMPLIANCE TESTER Future Scheduled Tests Radiology* US Renal 04/15/22 [facility] Evaluation + Plan note Future Appointments Appointment Date:04/16/2022 04:30:00 PM Scheduled Provider:LARRY THOMAS DO Location:[facility] Appointment Type:PC OV Appointment Date:05/28/2022 10:00:00 AM Scheduled Provider:ANISA GOMEZ MD Location:[facility] Appointment Type:BS COMPLIANCE TESTER [facility] Evaluation + Plan note Future Appointments [...] Date:03/16/2023 10:00:00 AM Scheduled Provider:LARRY THOMAS DO Location:[facility] Appointment Type:PC OV Future Scheduled Tests Radiology* BD Bone Density DEXA Axial Skeleton 12/14/22 [facility] Evaluation + Plan note Future Appointments Appointment Date:06/15/2023 10:30:00 AM Scheduled Provider:LARRY THOMAS DO Location:[facility] Appointment Type:PC OV Diagnostic Tests Pending * Methylmalonic Acid, Serum 04/07/23 [facility] Evaluation + Plan note Future Appointments Appointment Date:06/15/2023 10:30:00 AM Scheduled Provider:LARRY THOMAS DO Location:[facility] Appointment Type:PC OV [facility] Evaluation + Plan note Future Appointments Appointment Date:12/15/2023 10:00:00 AM Scheduled Provider:LARRY THOMAS DO Location:[facility] Appointment Type:PC OV [facility] evaluation + Plan note Future Appointments Appointment Date:12/29/2023 01:30:00 PM Scheduled Provider:LARRY THOMAS DO Location:[facility] Appointment Type:PC OV Diagnostic Tests Pending * Vitamin B12 Level 12/15/23 * Folate Level 12/15/23 Future Scheduled Tests Laboratory* Calcium Level Ionized 12/15/23 * Urine Culture 12/15/23 Radiology* XR Spine Lumbar W/Obliques 4 Views 12/15/23 [facility] evaluation + Plan note Future Appointments Appointment Date:12/29/2023 01:30:00 PM Scheduled Provider:LARRY THOMAS DO Location:[facility] Appointment Type:PC OV Future Scheduled Tests Laboratory* Calcium Level Ionized 12/15/23 Radiology* XR Chest 2 Views (PA & Lateral) 12/19/23 * XR Spine Lumbar W/Obliques 4 Views 12/15/23 [facility] Evaluation + Plan note Future Appointments Appointment Date:12/29/2023 01:30:00 PM Scheduled Provider:LARRY THOMAS DO Location:[facility] Appointment Type:PC OV Future Scheduled Tests Laboratory* Calcium Level Ionized 12/15/23 [facility] Evaluation + Plan note Future Appointments Appointment Date:02/16/2024 09:30:00 AM Scheduled Provider:LARRY THOMAS DO Location:[facility] Appointment Type:PC OV Future Scheduled Tests Radiology* US Bladder 12/29/23 [facility] Evaluation + Plan note Future Appointments Appointment Date:02/16/2024 09:30:00 AM Scheduled Provider:LARRY THOMAS DO Location:[facility] Appointment Type:PC OV [facility] Evaluation note* Diagnosis Abnormal ultrasound of breast Other (abnormal) findings on radiological examination of breast History of left breast cancer documented in this encounter [facility] noteNo assessment information availableWBluffton Hospital Work Phone: Hospital course Narrative No data available for this section [facility] Discharge instructions No data available for this section [facility] Discharge instructions Additional Instructions She has a superior pubic ramus fracture which is a pelvis fracture. These are not treated with surgery. They generally heal over weeks to months. She can do activity as tolerated. She may walk or be in a wheelchair or obviously lying in bed. Tylenol for pain. Lithia as needed for pain also.[facility] Work Phone: Progress note No data available for this section [facility] Reason for referral (narrative)No reason for referral information availableWBluffton Hospital Work Phone: Chief Complaint Chief Complaint [...] Visit Chief Complaint Admit Date ADMISSION EXAM COMPLIANCE TESTER February 24, 2024 3 :20pm [facility] February 28, 2024 5:00am ADMISSION EXAM February 29, 2024 1 1:54am [facility] March 27 5:00am LABWORK April 03, 2024 5:00am NEW CONCERN April 03, 2024 2:22pm LABWORK May 01, 2024 5:0 0am Chief Complaint Admit Date ADMISSION EXAM COMPLIANCE TESTER February 24, 2024 3 :20pm [facility] February 28, 2024 5:00am ADMISSION EXAM February 29, 2024 1 1:54am [facility] March 27 5:00am LABWORK April 03, 2024 5:00am NEW CONCERN April 03, 2024 2:22pm MONTHLY EXAM April 11, 2024 5:02 pm NEW CONCERN April 26, 2024 6:3 9pm LABWORK May 01, 2024 5:0 0am [facility] May 15, 2024 4: 00am Chief Complaint Admit Date ADMISSION EXAM COMPLIANCE TESTER February 24, 2024 3 :20pm [facility] February 28, 2024 5:00am ADMISSION EXAM February 29, 2024 1 1:54am [facility] March 27 5:00am LABWORK April 03, 2024 5:00am NEW CONCERN April 03, 2024 2:22pm MONTHLY EXAM April 11, 2024 5:02 pm NEW CONCERN April 26, 2024 6:3 9pm LABWORK May 01, 2024 5:0 0am [facility] May 15, 2024 4: 00am LABWORK May 29, 2024 5:0 0am Chief Complaint Admit Date ADMISSION EXAM COMPLIANCE TESTER February 24, 2024 3 :20pm [facility] February 28, 2024 5:00am ADMISSION EXAM February 29, 2024 1 1:54am [facility] March 27 5:00am LABWORK April 03, 2024 5:00am NEW CONCERN April 03, 2024 2:22pm MONTHLY EXAM April 11, 2024 5:02 pm NEW CONCERN April 26, 2024 6:3 9pm LABWORK May 01, 2024 5:0 0am [facility] May 15, 2024 4: 00am [facility] May 24, 2024 5 :00am LABWORK May 29, 2024 5:0 0am Chief Complaint Admit Date [facility] March 27 5:00am LABWORK April 03, 2024 5:00am NEW CONCERN April 03, 2024 2:22pm MONTHLY EXAM April 11, 2024 5:02 pm NEW CONCERN April 26, 2024 6:3 9pm LABWORK May 01, 2024 5:0 0am [facility] May 15, 2024 4: 00am [facility] May 24, 2024 5 :00am LABWORK May 29, 2024 5:0 0am [facility] June 26, 2024 4:0 0am fall July 24, 2024 1:23 am Chief Complaint Admit Date [facility] March 27 5:00am LABWORK April 03, 2024 5:00am NEW CONCERN April 03, 2024 2:22pm MONTHLY EXAM April 11, 2024 5:02 pm NEW CONCERN April 26, 2024 6:3 9pm LABWORK May 01, 2024 5:0 0am [facility] May 15, 2024 4: 00am [facility] May 24, 2024 5 :00am LABWORK May 29, 2024 5:0 0am [facility] June 26, 2024 4:0 0am Chief Complaint Admit Date LABWORK April 03, 2024 5:00am NEW CONCERN April 03, 2024 2:22pm MONTHLY EXAM April 11, 2024 5:02 pm NEW CONCERN April 26, 2024 6:3 9pm LABWORK May 01, 2024 5:0 0am Monthly Exam May 12, 2024 2:03 pm [facility] May 15, 2024 4: 00am [facility] May 24, 2024 5 :00am LABWORK May 29, 2024 5:0 0am [facility] June 26, 2024 4:0 0am fall July 24, 2024 1:23 am Chief Complaint Admit Date LABWORK April 03, 2024 5:00am NEW CONCERN April 03, 2024 2:22pm MONTHLY EXAM April 11, 2024 5:02 pm NEW CONCERN April 26, 2024 6:3 9pm LABWORK May 01, 2024 5:0 0am Monthly Exam May 12, 2024 2:03 pm [facility] May 15, 2024 4: 00am New Concern May 23, 2024 5:0 2pm [facility] May 24, 2024 5 :00am LABWORK May 29, 2024 5:0 0am [facility] June 26, 2024 4:0 0am fall July 24, 2024 1:23 am Chief Complaint Admit Date NEW CONCERN April 26, 2024 6:3 9pm LABWORK May 01, 2024 5:0 0am Monthly Exam May 12, 2024 2:03 pm [facility] May 15, 2024 4: 00am New Concern May 23, 2024 5:0 2pm [facility] May 24, 2024 5 :00am LABWORK May 29, 2024 5:0 0am [facility] June 26, 2024 4:0 0am MONTHLY EXAM June 27, 2024 4:00p m fall July 24, 2024 1:23 am Chief Complaint Admit Date LABWORK May 01, 2024 5:0 0am Monthly Exam May 12, 2024 2:03 pm [facility] May 15, 2024 4: 00am New Concern May 23, 2024 5:0 2pm [facility] May 24, 2024 5 :00am LABWORK May 29, 2024 5:0 0am [facility] June 26, 2024 4:0 0am MONTHLY EXAM June 27, 2024 4:00p m fall July 24, 2024 1:23 am NEW CONCERN July 24, 2024 2:45 pm LABWORK August 21, 2024 5:00 am Chief Complaint Admit Date [facility] May 24, 2024 5 :00am LABWORK May 29, 2024 5:0 0am [facility] June 26, 2024 4:0 0am [...] am LABWORK September 18, 2024 5: 00am [facility] October 16, 2024 5:00am Additional Source Comments Reason for Visit (unrecogniz ed section and content) Reason For Visit Description Follow-up by complaint Preliminary reason f or visit data, not yet signed by the author as of lower back pain Reason Comments Consult Left breast consult Reason Comments Request for medical records INFORMATION SOURCE (unrecogn ized section and content) DATE CREATED AUTHOR 03/11/2018 [facility] DATE CREATED AUTHOR AUTHOR'S ORGANIZ ATION 06/04/2022 [facility] DATE CREATED AUTHOR AUTHOR'S ORGANIZ ATION 07/09/2023 [facility] ([place]) DATE CREATED AUTHOR AUTHOR'S ORGANIZ ATION 02/24/2024 [facility] DATE CREATED AUTHOR AUTHOR'S ORGANIZ ATION 03/28/2024 [facility] DATE CREATED AUTHOR AUTHOR'S ORGANIZ ATION 11/01/2024 [facility] Care Team (unrecognized sect ion and content) Care Team Personnel Name: ALANNA WRIGHT DO Position: P4 Physician - Primary Care Member Role: Primary Care Physician Address: Address: [address] [place] [address]- Name: Venkata Alegria RN Position: ED RN Member Role: ED RN Name: BLANCA ARRIETA DO Position: P4 ED Physician II Member Role: ED Physician Address: Address: [address] [place] [address]- Care Team Related Persons Name: ZARA DALTON Address: Home [address] [place], [place] [id number] [place] Care Team Personnel Name: ALANNA WRIGHT DO Position: P4 Physician - Primary Care Member Role: Primary Care Physician Address: Address: [address] [place], [place] [address] Name: Danette Busch RN Position: RN Member Role: RN Name: INES DENNIS MD Position: ED Physician Member Role: Attending Physician Address: Address: [facility] [address] [place] [address]- Care Team Related Persons Name: ZARA DALTON Address: Home [address] [place], [place] [id number] [place] Care Team Personnel Name: ALANNA WRIGHT DO Position: P4 Physician - Primary Care Member Role: Primary Care Physician Address: Address: [address] [place] [address]- Care Team Related Persons Name: ZARA DALTON Address: Home [address] [place], [place] [id number] [place] Care Team Personnel Name: LARRY THOMAS DO Position: P4 Physician - Primary Care Member Role: Primary Care Physician Address: Address: [address] [place] [address]- Care Team Related Persons Name: ZARA DALTON Address: Home [address] [place], [place] [id number] [place] Care Team Personnel Name: LARRY THOMAS DO Position: P4 Physician - Primary Care Member Role: Primary Care Physician Address: Address: [address] [place] [address]- Care Team Related Persons Name: ZARA DALTON Address: Home [address] [place], [place] [id number] [place] Care Team Personnel Name: LARRY THOMAS DO Position: P4 Physician - Primary Care Member Role: Primary Care Physician Address: Address: [address] [place] [address]- Care Team Related Persons Name: ZARA DALTON Address: Home [address] [place], [place] [id number] [place] Care Team Personnel Name: LARRY THOMAS DO Position: P4 Physician - Primary Care Member Role: Primary Care Physician Address: Address: [address] [place] [address]- Care Team Related Persons Name: ZARA DALTON Address: Home [address] [place], [place] [id number] [place] Care Team Personnel Name: LARRY THOMAS DO Position: P4 Physician - Primary Care Member Role: Primary Care Physician Address: Address: [address] [place] [address]- Care Team Related Persons Name: ZARA DALTON Address: Home [address] [place], [place] [id number] [place] Source Comments (unrecognize d section and content) In the event this informatio n is protected by the Federal Confidentiality of Alcohol and Drug Abuse Patient Records regulations: The Federal rules restrict any use of the information to criminally investigate or prosecute any alcohol or drug abuse patient.[facility] the event this information is protected by the Federal Confidentiality of Alcohol and Drug Abuse Patient Records regulations: The Federal rules restrict any use of the information to criminally investigate or prosecute any alcohol or drug abuse patient.[facility] Care Teams (unrecognized sec tion and [...] 2024 End: April 26, 2024 Jane Tickton COMPLIANCE TESTER, COMPLIANCE TESTER-C Attending Provider Active Start: April 26, [...] July 24, 2024 End: July 24, 2024 Explosive Operator Grenade Relationship Specialty Start Date End Date Larry Thomas, DO [address] [place] [address] PCP - General Family Medicine 03/30/22 Lachelle Cervanets MD, [address] [facility] [place] [place] [address] Physician Radiation Oncology 05/11/17 Kesha Davidson RN Specialty Brick [employer] Making Machine Operator Oncology 07/28/17 Explosive Operator Grenade Relationship Specialty Start Date End Date Larry Thomas, DO [address] [place] [address] PCP - General Family Medicine 03/30/22 Lachelle Cervantes MD, [address] [place], [place] [id number] Physician Radiation Oncology 05/11/17 Kesha Davidson RN Specialty Brick And Tile Making Machine Operator Oncology 07/28/17 Team Status: Active Member Role Status Dates Dr. Warner Leos Jr., MD Family Provider Active Dr. Warner Leos Jr., MD Primary Care Provider Active Team Status: Inactive Member Role Status Dates Dr. Warner Leos Jr., MD Primary Care Provider Active Start: February 24, 2024 End: February 24, 2024 Jane Barth COMPLIANCE TESTER, COMPLIANCE TESTER-C Attending Provider Active Start: February 24, [...] 2024 End: May 12, 2024 Jane Barth COMPLIANCE TESTER, COMPLIANCE TESTER-C Attending Provider Active Start: May 12, 2024 End: May 12, 2024 Team Status: Inactive Member Role Status Dates Dr. Jairon Medel MD Primary Care Provider Active Start: May 23, 2024 End: May 23, 2024 Jane Barth COMPLIANCE TESTER, COMPLIANCE TESTER-C Attending Provider Active Start: May 23, 2024 End: May 23, 2024 Team Status: Active Member Role/Relationship Status Dates Dr. Jairon Medel MD Primary Care Provider Active Team Status: Inactive Member Role/Relationship Status Dates Dr. Warner Leos Jr., MD Primary Care Provider Active Start: April 26, 2024 End: April 26, 2024 Jane Barth COMPLIANCE TESTER, COMPLIANCE TESTER-C Attending Provider Active Start: April 26, [...] 2024 End: May 12, 2024 Jane Barth COMPLIANCE TESTER, COMPLIANCE TESTER-C Attending Provider Active Start: May 12, [...] 2024 End: May 23, 2024 Jane Barth COMPLIANCE TESTER, COMPLIANCE TESTER-C Attending Provider Active Start: May 23, [...] 2024 End: May 12, 2024 Jane Barth COMPLIANCE TESTER, COMPLIANCE TESTER-C Attending Provider Active Start: May 12, [...] 2024 End: May 23, 2024 Jane Barth COMPLIANCE TESTER, COMPLIANCE TESTER-C Attending Provider Active Start: May 23, [...] 2024 End: July 24, 2024 Jane Barth COMPLIANCE TESTER, COMPLIANCE TESTER-C Attending Provider Active Start: July 24, [...] 2024 End: July 24, 2024 Jane Barth COMPLIANCE TESTER, COMPLIANCE TESTER-C Attending Provider Active Start: July 24, 2024 End: July 24, 2024 Team Status: Inactive Member Role/Relationship Status Dates Dr. Jairon Medel MD Primary Care Provider Active Start: August 08, 2024 Dr. Julia Estrella MD Attending Provider Active Start: August 08, 2024 Team Status: Inactive Member Role/Relationship Status Dates Dr. Jaiorn Medel MD Primary Care Provider Active Start: [...] Care Provider Active Start: September 18, 2024 aJiron TREVIÑO MD Attending Provider Active Start: September [...] 2024 Dr. Jean Claude Harry MD Emergency [facility] Physician Active Start: July 24, 2024 End: July 24, 2024 Team Status: Inactive Member Role/Relationship Status Dates Dr. Jairon Medel MD Primary care physician Activ e Start: July 24, 2024 End: July 24, 2024 Jane Barth COMPLIANCE TESTER, COMPLIANCE TESTER-C Attending physician Active Start: July 24, 2024 [...] August 28, 2024 End: August 28, 2024 Jarion TREVIÑO MD Attending physician Active Start: August [...] BE BASED ON THE PRIMARY CLINICAL RECORDS. [employer] provides no warranty or guarantee of the accuracy or completeness of information in this document.
[2024-11-13 07:36] LABS: Hematocrit 32.7 % (37-47); Hemoglobin 10.1 g/dL (12.0-15.0); Immature Granulocytes Count 0.020 X10^3/uL (0.0-0.0); Mean Corp Hgb Conc 30.9 g/dL (32-36); Mean Corpuscular Volume 91.1 fL (81-99); Mean Platelet Vol. 10.2 fl (6.2-12.0); NRBC Flagged by Analyzer 0 % (0-5); Platelet Count 285 K/mm3 (150-450); RBC Distribution Width CV 13.1 % (11.6-14.6); RBC Distribution Width SD 43.2 fl (35.1-43.9); Red Blood Count 3.59 M/mm3 (4.2-5.4); White Blood Count 7.4 K/mm3 (4.4-11.0)
[2024-11-13 07:53] LABS: Anion Gap 11 (5-15); BUN 24 mg/dL (4-19); BUN/Creat Ratio 24.1 RATIO (10-20); Calcium,Total 9.5 mg/dL (7.6-11.0); Carbon Dioxide 23.9 mmol/L (21.0-32.0); Chloride 107 mmol/L (98-108); Glucose 85 mg/dL (70-99); Potassium 4.3 mmol/L (3.3-5.1)
== END ==
LOC: OLS.WHLCAR 04:47
PROVIDERS: PCP Internal Medicine; Referring Provider Internal Medicine; Visit Provider Internal Medicine
DX: G30.9 Alzheimer's disease, unspecified (principal); I12.9 Hypertensive chronic kidney disease with stage 1 through stage 4 chronic kidney disease, or unspecified chronic kidney disease; N18.9 Chronic kidney disease, unspecified
CPT/HCPCS: 36415; 80048; 85025

== ENCOUNTER → 2024-11-27 | Outpatient (REF) | payer MEDICARE, OTHER, SELFPAY ==
--- OUTSIDE RECORDS SUMMARY | 2024-11-27 06:44 | XMS RPT_ITS | CCD ---
Author Organization [facility] Inform ion Partnership [facility] Care Team Providers Care Master Carpenter Name Role Phone Carla Dye MD Unavailable PAULA ALANIZ Referring Unavailable PAULA ALANZI Referring Unavailable ADRIANA , ALANNA Herrera Primary Care Physician MICAHAR DO, DR GAO Primary Care Physician [phone] Billy PARKER MD, Dabrandenung Unavailable [phone] Stuart RN, Kesha Unavailable Unavailable Micahar DOLarry [...] ROMAR DO, DR GAO Primary Care Unavailable [facility] COORDIN[facility]-SAW TAILER, ELDA Admitting Unavail able SNEHA PARKER, ESPERANZA Attending Unavailable ROMAR DO, DR GAO Primary Care Unavailable ROMAR DO, DR GAO Attending Unavailable ROMAR DO, DR GAO Primary Care Unavailable ROMAR DO, DR GAO Attending Unavailable ROMAR DO, DR GAO Primary Care Unavailable ROMAR DO, DR GAO Primary Care Unavailable ROMAR DO, DR GAO Attending Unavailable Deric PARKER, Dr. Hylton Primary Care Provider Lary PECAN CLEANER-C, Jane Attending Provider Jairon Medel MD Attending Provider Unavailsteffany Medel MD, Dr. De La O Attending Provider Jairon Medel MD Referring Provider UnavailDr. Warner Norton MD Primary Care Provider Jairon Medel MD Attending Provider Unavailsteffany Barth PECAN CLEANER-C, Jane Attending Provider Gianfranco PARKER, Dr. De La O Attending Provider Dr. Jairon Medel MD Primary Care Provider Dr. Jean Claude Harry MD Emergency Provider Deric PARKER, Dr. Hylton Primary Care Provider Jairon Medel MD Attending Provider UnavailDr. Jairon Morris MD Primary Care Provider Dr. Warner Leos MD Primary Care Provider Lary PECAN CLEANER-C, Jane Attending Provider Jairon Medel MD Attending Provider Unavailsteffany Medel MD, Dr. De La O Attending Provider Piero PARKER, Dr. Silverio Attending Provider [phone] Deric PARKER, Dr. Hylton Primary Care Provider Lary PECAN CLEANER-C, Jane Attending Provider Deric PARKER, Dr. Hylton Primary Care Provider Gianfranco PARKER, Jairon Attending Provider Unavaila katerina Medel MD, Jairon Referring Provider Unavailsteffany Medel MD, Dr. De La O Primary Care Provider Lary PECAN CLEANER-C, Jane Attending Provider Sameer PARKER, Dr. Dumont Attending Provider Gianfranco PARKER, Dr. De La O Primary Care Physician Piero PARKER, Dr. Silverio Attending Physician Piero PARKER, Dr. Silverio Emergency Department Physici an Lary PECAN CLEANER-C, Jane Attending Physician Sameer PARKER, Dr. Dumont Attending Physician Gianfranco PARKER, Dr. De La O Attending Physician Jairon Medel MD Attending Physician Unavail able Oleghe, Efewongbe Attending Unavailable Oleghe, Efewongbe Primary Care Unavailable Oleghe, Efewongbe Primary Care Unavailable Lary PECAN CLEANER, Jane Attending Unavailable Lary PECAN CLEANER, Jane Attending Unavailable Deric Rodriguez, Warner Primary Care Unavailable Oleghe, Efewongbe Attending Unavailable Deric Rodriguez, Warner Primary Care Unavailable Oleghe Carrillo TREVIÑOongbe Attending Unavailthea Leos Jr., Warner Primary Care Unavailable Oleghe, Efewongbe Primary Care Unavailable Oleghe OLS, Efewongbe Attending Unavailabl e Oleghe KAMILA Efsreekanthongbe Attending Unavailthea Leos Jr., Warner Primary Care Unavailable Oleghe, Efewongbe Primary Care Unavailable Jean Claude Harry Attending Unavailable Oleghe Jairon TREVIÑO Attending Unavailabl e Cortezghe KAMILA Efmargarette Referring Unavailthea Leos Jr., Warner Primary Care Unavailable Oleghe OLS, Efewongbe Attending Unavailabl e Oleghe, Efewongbe Primary Care Unavailable Lary PECAN CLEANER, Jane Attending Unavailable Deric Rodriguez, Warner Primary Care Unavailable Oleghe, Efewongbe Attending Unavailable Oleghe, Efewongbe Primary Care Unavailable Oleghe, Efewongbe Primary Care Unavailable Tickton PECAN CLEANER, Jane Attending Unavailable Oleghe, Efewongbe Primary Care Unavailable Lary PECAN CLEANER, Jane Attending Unavailable Oleghe, Efewongbe Attending Unavailable Deric Rodriguez, Warner Primary Care Unavailable Oleghe, Efewongbe Primary Care Unavailable Oleghe OLS, Efewongbe Attending Unavailabl e Oleghe OLS, Efewongbe Referring Unavailabl e Oleghe [...] Attending Unavailabl e Oleghe OLS, Efewongbe Attending Unavailthea Leos Jr., Warner Primary Care Unavailable Oleghe, Efewongbe Primary Care Unavailable Oleghe OLS, Efewongbe Attending Unavailabl sophia Barth PECAN CLEANER, Jane Attending Unavailable Deric Rodriguez, Warner Primary Care Unavailable Allergies Allergy Classification Reported Allergen(s) Allergy Type Date of Onset Reaction(s) Facility (1 source) Sulfacetamide Drug Allergy 4 rash [facility] Work Phone: (10 sources) Sulfonamides (Antibiotic); Translations: [SULFA (SULFONAMIDE ANTIBIOTICS)] Propensity to adverse reactions to drug (disorder) 8 Intolerance [facility] Other [place] Repository Medications Current Medications Medication Drug Class(es) [...] # 12 tab(s), 1 Refill(s), Pharmacy: [facility]/pharmacy #[id number], 155, cm, 12/15/23 10:32:00 EST, [...] # 12 tab(s), 1 Refill(s), Pharmacy: [facility]/pharmacy #[id number], 153.5, cm, 06/15/23 10:26:00 EDT, Height, kg, 06/15/23 10:26:00 EDT, Dosing Weight Start Date: 06/15/23 Stop Date: 11/30/23 Status: Ordered anastrozole 1 mg oral tablet (20 sources) Aromatase Inhibitor Start: 09-28-2023 take 1 tablet by mouth once daily in the evening anastrozole 1 mg oral tablet 1 tab(s), Oral, qPM, # 90 tab(s), 0 Refill(s), Pharmacy: [facility]/pharmacy #[id number], 153.5, cm, 06/15/23 10:26:00 EDT, Height, kg, 06/15/23 10:26:00 EDT, Dosing Weight Start Date: 09/28/23 Status: Ordered Start: 03-16-2023 take 1 tablet by charles once daily in the evening anastrozole 1 [...] # 90 tab(s), 1 Refill(s), Pharmacy: [facility] ST[facility] [id number], 154.5, cm, 11/18/21 13:32:00 EDT, Height, kg, 11/18/21 13:32:00 EDT, Dosing Weight Start Date: 11/21/21 Status: Ordered Start: 03-20-2020 End: 04-05-2021 take 1 tablet by mouth once daily anastrozole 1 mg oral tablet 1 tab(s), Oral, qDay, # 90 tab(s), 1 Refill(s), Pharmacy: [facility] ST[id number], 155, cm, 11/04/20 8:28:00 EDT, Height, kg, 11/11/20 8:26:00 EDT, Dosing Weight Start Date: 04/17/21 Status: Ordered Start: 01-12-2018 ARIMIDEX 1 MG TABS 1 tablet daily ANASTROZOLE [id number] Vidya Babin LPN Comment on above: TAKE 1 TABLET BY CHARLES TH EVERY DAY aspirin 81 mg delayed release oral tablet (20 sources) Platelet Aggregation Inhibitor, Nonsteroidal Anti-inflammatory Drug Start: 10-05-2023 End: 04-02-2024 aspirin 81 mg oral delayed release tablet Dose : 81 mg = 1 tab(s), Oral, qAM, do not crush or chew, # 90 tab(s), 1 Refill(s), Pharmacy: [facility]/pharmacy #[id number], 153.5, cm, 06/15/23 10:26:00 EDT, Height, kg, 06/15/23 10:26:00 EDT, Dosing Weight Start Date: 10/05/23 Stop Date: 04/02/24 Status: Ordered Start: 03-05-2022 End: 05-20-2023 aspirin 81 mg oral delayed r elease tablet Dose : 81 mg = 1 tab(s), Oral, qAM, do not crush or chew, # 90 tab(s), 3 Refill(s), Pharmacy: [facility]/pharmacy #[id number], 154.3, cm, 04/16/22 16:12:00 EST, [...] # 100 tab(s), 1 Refill(s), Pharmacy: [facility]/pharmacy #[id number], 155, cm, 12/15/23 10:32:00 EST, Height, kg, 12/15/23 10:26:00 EST, Dosing Weight Start Date: 12/15/23 Stop Date: 07/02/24 Status: Ordered Quantity: 100.0 Unit: tab(s) Repeat number: 2 Start: 09-13-2023 End: 12-12-2023 atorvastatin 20 mg oral tabl et Dose : 20 mg = 1 tab(s), Oral, qPM, # 90 tab(s), 0 Refill(s), Pharmacy: [facility]/pharmacy #[id number], 153.5, cm, 06/15/23 10:26:00 EDT, [...] qDay, # 45 tab(s), 1 Refill(s), Pharmacy: [facility] [id number], 155, cm, 05/05/21 8:51:00 EDT, Height, kg, 05/05/21 8:51:00 EDT, Dosing Weight Start Date: 08/22/21 Status: Ordered Start: 11-06-2020 take 0.5 tablet by m outh once daily atorvastatin 20 mg oral tablet See Instructions, TAKE 1/2 TABLET EVERY DAY, # 45 tab(s), 1 Refill(s), [id number], 155, cm, 11/04/20 8:28:00 EDT, [...] # 90 cap(s), 0 Refill(s), Pharmacy: [facility]/pharmacy #[id number], 156.2, cm, 07/01/22 6:28:00 EDT, Height, kg, 07/01/22 6:28:00 EDT, Dosing Weight Start Date: 08/10/22 Status: Ordered Start: 12-07-2016 take 1 capsule by [facility] once daily in the morning celecoxib 100 mg oral capsule 1 cap(s), Oral, qAM, # 90 cap(s), 1 Refill(s), Pharmacy: [facility] STORE [id number], 154.3, cm, 04/16/22 16:12:00 EST, Height, kg, 04/16/22 16:12:00 EST, Dosing Weight Start Date: 05/21/22 Status: Ordered Start: 10-27-2013 CELEBREX 100 M G CAPS 1-2 capsules weekly as needed CELECOXIB [id number] Vidya Babin BIGHT MAKER Comment on above: Take 100 mg by mouth once daily. ciclopirox 80 mg/ml topical solution (6 sources) Start: 03-05-2022 End: 01-06-2024 ciclopirox 8% topical solution Apply 1 angelica, Topical, Daily, apply to affected toenails and surrounding area once daily, remove with alcohol every 7 days prior to reapplication, Apply to: toenails, X 48 week(s), # 6.6 mL, 1 Refill(s), [id number], 154.3, cm, 03/05/22 9:44:00 EST, Height, 75.6 Start Date: 03/05/22 Stop Date: 01/06/24 Status: Ordered Clobetasol (3 sources) Corticosteroid Start: 01-20-2021 clobetasol 0.05% topical ointment See Instructions, APPLY TO AFFECTED AREA TWICE A DAY, # 15 gram(s), 1 Refill(s), Pharmacy: [facility] [id number], 155, cm, 11/04/20 8:28:00 EDT, Height, 81.2, [...] Start: 07-24-2024 take 1 tablet by charles th once daily Start: 06-15-2023 donepezil 10 m g oral tablet Dose : 10 mg = 1 tab(s), Oral, qHS, # 30 tab(s), 0 Refill(s) Start Date: 06/15/23 Status: Ordered Quantity: 30.0 Unit: tab(s) Repeat number: 1 Start: 09-30-2022 donepezil 5 mg oral tablet Dose : 5 mg = 1 tab(s), Oral, qHS, # 90 tab(s), 1 Refill(s), [facility] [...] # 90 tab(s), 1 Refill(s), Pharmacy: [id number], 155, cm, 11/04/20 8:28:00 EDT, Height, kg, [...] # 39 tab(s), 0 Refill(s), Pharmacy: [facility]/pharmacy #[id number], 155, cm, 12/15/23 10:32:00 EST, [...] qDay, # 90 tab(s), 1 Refill(s), Pharmacy: [facility] [id number], 155, cm, 05/05/21 8:51:00 EDT, Height, kg, 05/05/21 8:51:00 EDT, Dosing Weight Start Date: 09/02/21 Status: Ordered Start: 10-22-2020 take 1 tablet by charles th once daily lisinopril 20 mg oral tablet See Instructions, TAKE 1 TABLET BY MOUTH EVERY DAY, # 90 tab(s), 1 Refill(s), Pharmacy: [facility] [id number], 155, cm, 07/23/20 8:15:00 EDT, Height, kg, 07/30/20 8:40:00 EDT, Dosing Weight Start Date: 10/22/20 Status: Ordered losartan potassium 50 mg oral tablet (20 sources) Angiotensin 2 Receptor Aniyah Start: 10-27-2013 End: 07-02-2024 take 1 tablet by mouth once daily 24 hr memantine hydrochloride 28 mg extended release oral capsule (20 sources) V-fsmkkz-F-aspartate Receptor Antagonist Start: 07-24-2024 take 1 capsule [...] qDay, # 90 tab(s), 1 Refill(s), Pharmacy: [facility] [id number], 155, cm, 05/05/21 8:51:00 EDT, Height, kg, 05/05/21 8:51:00 EDT, Dosing Weight Start Date: 07/14/21 Status: Ordered Start: 04-15-2021 take 1 tablet by charles once daily memantine 5 mg oral tablet 1 tab(s), Oral, qDay, # 90 tab(s), 0 Refill(s), Pharmacy: [facility] [id number], 155, cm, 11/04/20 8:28:00 EDT, Height, kg, 11/11/20 8:26:00 EDT, Dosing Weight Start Date: 04/15/21 Status: Ordered Start: 10-17-2020 take 1 tablet by charles once daily memantine 5 mg oral tablet See Instructions, TAKE 1 TABLET BY MOUTH EVERY DAY, # 90 tab(s), 0 Refill(s), Pharmacy: [facility] [id number], 155, cm, 07/23/20 8:15:00 EDT, Height, kg, [...] 0 Refill(s) Start Date: 03/17/22 Status: Ordered Vmszprhktgsq-Jw-Qzew-Mineral s (Multiple Vitamins For Women) 1 EACH tablet (12 sources) Start: 04-20-2017 take 1 tablet by mouth once daily Start: 04-20-2017 take 1 tablet by charles once daily Vnqpgrkwpjfk-Yz-Iine-Minerals (Multiple Vitamins For Women) 1 EACH tablet Active 1 NMA PO DAILY April 20, 2017 12:00am mupirocin 0.02 mg/mg topical ointment (2 sources) RNA Synthetase Inhibitor Antibacterial Start: 06-19-2022 mupirocin 2% top ical ointment Apply 1 angelica, Topical, BID, Bilateral intranasal application twice daily x 5 days pre-surgery., Apply to: nostril, each, # 22 gram(s), 0 Refill(s), Pharmacy: [facility]/pharmacy #[id number], Ointment, 154.3, cm, 05/28/22 7:35:00 EDT, Height, 77 Start Date: 06/19/22 Status: Ordered nystatin [id number] unt/ml topical cream (8 sources) Polyene Antifungal [...] Date: 01/24/24 Status: Ordered polyethylene glycol 3350 32542 mg powder for oral solution (8 sources) [...] # 6 tab(s), 0 Refill(s), Pharmacy: [facility]/pharmacy #[id number], 155, cm, 12/15/23 10:32:00 EST, [...] Start: 02-26-2017 take 2 tablets by mo uth once daily atenolol (TENORMIN) 50 mg tablet [...] TABS 1 tablet daily CALCIUM CARB-CHOLECALCIFEROL TABS [id number] Vidya Babin BIGHT MAKER calcium carbonate 1500 mg oral tablet (12 sources) Start: End: calcium (as carbonate) 600 mg oral tablet Dose : 600 mg = 1 tab(s), Oral, qDay, # 90 tab(s), 3 Refill(s), Pharmacy: [facility]/pharmacy #[id number], 156.5, cm, 09/11/22 11:11:00 EDT, [...] Comment on above: Take 3 tablets by [facility] once daily. cyclobenzaprine hydrochloride 10 mg [...] # 90 tab(s), 1 Refill(s), Pharmacy: [facility] [id number], 154.5, cm, 11/18/21 13:32:00 EDT, Height, kg, 11/18/21 13:32:00 EDT, Dosing Weight Start Date: 11/21/21 Status: Ordered Comment on above: Take 25 mg by mouth once daily. hydroCHLOROthiazide 25 mg oral tablet (17 sources) Thiazide Diuretic Start: End: 06-16-2 025 take 1 tablet by mouth once daily Hydrochlorothiazide 25 MG tablet Discontinued 25 mg PO DAILY April 20, 2017 12:00am July 24, 2024 1:38am Comment on above: Take 25 mg by mouth once daily. 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, unspecified] [...] sources) Dementia in other diseases classified elsewhere, moderate, with agitation; Translations: [Dementia in other diseases classified elsewhere, moderate, with agitation] Onset: 05-31-2024 Unclassified (2 sources) Dementia in other diseases classified elsewhere, unspecified severity, with agitation; Translations: [Dementia in other diseases classified elsewhere, unspecified severity, with agitation] Onset: 10-31-2024 Urinary tract infections (2 sources) Urinary tract [...] Auto (Unsp spec) [#/Vol] 2.13 10*3/uL 0.83-4.51 [facility] Absolute neutrophil countOrd ered By: Jairon Medel on 10-16-2024 Neutrophils (Bld) [#/Vol] 4.1 10*3/uL 2.0-7.7 [facility] Anion gap in Serum or Plasma Ordered By: Jairon Medel on 10-16-2024 Anion gap [Moles/Vol] 13 mmol/L 5-15 [facility] Automated lymphocyte count a s percentage of total leukocytesOrdered By: Jairon Medel on 10-16-2024 Lymphocytes/100 WBC Auto (Unsp spec) 29.5 % 19-41 [facility] BUN/creatinine ratioOrdered By: Jarion Medel on 10-16-2024 Urea nitrogen/Creatinine [Mass ratio] 22.8 mg/mg High 10-20 [facility] Basophil percentageOrdered B y: Jairon Medel on 10-16-2024 Basophils/100 WBC (Bld) 0.8 % 0-1 [facility] Carbon dioxide, total [Moles /volume] in Central venous bloodOrdered By: Jairon Medel on 10-16-2024 CO2 [Moles/Vol] 22.8 mmol/L 21.0-32.0 [facility] Chloride assayOrdered By: Pooja Medel on 10-16-2024 Chloride [Moles/Vol] 104 mmol/L 98-108 [facility] Eosinophil percentageOrdered By: margarette Medel on 10-16-2024 Eosinophils/100 WBC (Bld) 3.2 % 0-5 [facility] Erythrocyte distribution wid th ratioOrdered By: Jairon Medel on 10-16-2024 Erythrocyte distribution width (RBC) [Ratio] 13.2 % 11.6-14.6 [facility] Erythrocyte distribution wid th standard deviationOrdered By: Jairon Medel on 10-16-2024 Erythrocyte distribution width (RBC) [Ratio] 44.1 fl High 35.1-43.9 [facility] Glomerular filtration rate ( GFR) estimation/1.73 sq m using serum, plasma, or whole bOrdered By: Jairon Medel on 10-16-2024 GFR/1.73 sq M.predicted among non-blacks MDRD (S/P/Bld) [Vol rate/Area] 51 mL/min/{1.73_m2} Low >60 [facility] Comment on above: mL/min/1.73m2 CKD-EP I Creatinine Equation (2020) Hematocrit Auto (Bld) [Volum e fraction]Ordered By: Jairon Medel on 10-16-2024 Hematocrit (Bld) [Volume fraction] 32.8 % Low 37-47 [facility] Hemoglobin measurementOrdere d By: Jairon Medel on 10-16-2024 Hemoglobin (Bld) [Mass/Vol] 10.0 g/dL Low 12.0-15.0 [facility] Immature granulocytes/100 WB C Auto (Bld)Ordered By: Jairon Medel on 10-16-2024 Immature granulocytes/100 WBC (Bld) 0.300 % 0.0-0.9 [facility] Comment on above: IG% - Immature Granu locytes (promyelocytes, myelocytes and metamyelocytes) > 1% indicates that a LEFT SHIFT is Present. MCV (mean corpuscular volume ) determinationOrdered By: Jairon Medel on 10-16-2024 MCV (RBC) [Entitic vol] 91.4 fL 81-99 [facility] Mean corpuscular hemoglobin (MCH) determinationOrdered By: Jairon Medel on 10-16-2024 MCH (RBC) [Entitic mass] 27.9 pg 27.0-32.0 [facility] Mean corpuscular hemoglobin concentration (MCHC) determinationOrdered By: Jairon Medel on 10-16-2024 MCHC (RBC) [Mass/Vol] 30.5 g/dL Low 32-36 [facility] Mean platelet volume determi nationOrdered By: Jairon Medel on 10-16-2024 Platelet mean volume (Bld) [Entitic vol] 10.6 fL 6.2-12.0 [facility] Monocyte percentageOrdered B y: Jairon Medel on 10-16-2024 Monocytes/100 WBC (Bld) 9.4 % 0-10 [facility] Neutrophil percentageOrdered By: Jairon Medel on 10-16-2024 Neutrophils/100 WBC (Bld) 56.8 % 47-70 [facility] Nucleated red blood cell per centageOrdered By: Jairon Medel on 10-16-2024 Nucleated RBC/100 WBC (Bld) [Ratio] 0 % 0-5 [facility] Platelet countOrdered By: Pooja Medel on 10-16-2024 Platelets (Bld) [#/Vol] 273 10*3/uL 150-450 [facility] Potassium measurement (mass/ volume)Ordered By: Goldiemakenzie Torojenifersophia on 10-16-2024 Potassium (Unsp spec) [Mass/Vol] 4.2 mmol/L 3.3-5.1 [facility] RBC Auto (Bld) [#/Vol]Ordere d By: Jairon Medel on 10-16-2024 RBC (Bld) [#/Vol] 3.59 10*6/uL Low 4.2-5.4 [facility] Serum creatinine measurement (mass/volume)Ordered By: Goldiemakenzie Torojenifersophia on 10-16-2024 Creatinine [Mass/Vol] 1.07 mg/dL 0.70-1.20 [facility] Serum glucose measurement (m ass/volume)Ordered By: Jairon Cortezjenifersophia on 10-16-2024 Glucose [Mass/Vol] 76 mg/dL 70-99 [facility] Serum or plasma calcium krissy urement (mass/volume)Ordered By: Jairon Cortezjenifersophia on 10-16-2024 Calcium [Mass/Vol] 9.7 mg/dL 7.6-11.0 [facility] Serum or plasma urea nitroge n measurement (mass/volume)Ordered By: Goldiemakenzie Torojenifersophia on 10-16-2024 Urea nitrogen [Mass/Vol] 24 mg/dL High 4-19 [facility] Sodium levelOrdered By: Carrillo feliciano Cortezjenifersophia on 10-16-2024 Sodium [Moles/Vol] 139 mmol/L 133-145 [facility] White blood cell (WBC) count Ordered By: Jairon De Leone on 10-16-2024 WBC (Bld) [#/Vol] 7.2 10*3/uL 4.4-11.0 [facility] Absolute lymphocyte countOrd ered By: Jairon De Leonsophia on 09-18-2024 Lymphocytes Auto (Unsp spec) [#/Vol] 1.93 10*3/uL 0.83-4.51 [facility] Absolute neutrophil countOrd ered By: Jairon De Leone on 09-18-2024 Neutrophils (Bld) [#/Vol] 3.1 10*3/uL 2.0-7.7 [facility] Anion gap in Serum or Plasma Ordered By: Jairon Cortezjenifersophia on 09-18-2024 Anion gap [Moles/Vol] 11 mmol/L 5-15 [facility] Automated lymphocyte count a s percentage of total leukocytesOrdered By: Jairon Cortezjenifersophia on 09-18-2024 Lymphocytes/100 WBC Auto (Unsp spec) 34.0 % 19-41 [facility] BUN/creatinine ratioOrdered By: Jairon De Leone on 09-18-2024 Urea nitrogen/Creatinine [Mass ratio] 23.1 mg/mg High 10-20 [facility] Basophil percentageOrdered B y: Jairon De Leone on 09-18-2024 Basophils/100 WBC (Bld) 0.7 % 0-1 [facility] Carbon dioxide, total [Moles /volume] in Central venous bloodOrdered By: Jairon Cortezjenifersophia on 09-18-2024 CO2 [Moles/Vol] 23.8 mmol/L 21.0-32.0 [facility] Chloride assayOrdered By: Ef meghanmakenzie Torojenifere on 09-18-2024 Chloride [Moles/Vol] 106 mmol/L 98-108 [facility] Eosinophil percentageOrdered By: Jairon Cortezjenifere on 09-18-2024 Eosinophils/100 WBC (Bld) 2.1 % 0-5 [facility] Erythrocyte distribution wid th ratioOrdered By: Jairon Medel on 09-18-2024 Erythrocyte distribution width (RBC) [Ratio] 13.6 % 11.6-14.6 [facility] Erythrocyte distribution wid th standard deviationOrdered By: Jairon Medel on 09-18-2024 Erythrocyte distribution width (RBC) [Ratio] 45.4 fl High 35.1-43.9 [facility] Glomerular filtration rate ( GFR) estimation/1.73 sq m using serum, plasma, or whole bOrdered By: sreekanthnormannamakenzie Medel on 09-18-2024 GFR/1.73 sq M.predicted among non-blacks MDRD (S/P/Bld) [Vol rate/Area] 59 mL/min/{1.73_m2} Low >60 [facility] Comment on above: mL/min/1.73m2 CKD-EP I Creatinine Equation (2020) Hematocrit Auto (Bld) [Volum e fraction]Ordered By: Jairon Medel on 09-18-2024 Hematocrit (Bld) [Volume fraction] 31.9 % Low 37-47 [facility] Hemoglobin measurementOrdere d By: Jairon Medel on 09-18-2024 Hemoglobin (Bld) [Mass/Vol] 9.9 g/dL Low 12.0-15.0 [facility] Immature granulocytes/100 WB C Auto (Bld)Ordered By: Jairon Medel 09-18-2024 Immature granulocytes/100 WBC (Bld) 0.400 % 0.0-0.9 [facility] Comment on above: IG% - Immature Granu locytes (promyelocytes, myelocytes and metamyelocytes) > 1% indicates that a LEFT SHIFT is Present. MCV (mean corpuscular volume ) determinationOrdered By: Jairon Medel on 09-18-2024 MCV (RBC) [Entitic vol] 91.7 fL 81-99 [facility] Mean corpuscular hemoglobin (MCH) determinationOrdered By: Jairon Medel 09-18-2024 MCH (RBC) [Entitic mass] 28.4 pg 27.0-32.0 [facility] Mean corpuscular hemoglobin concentration (MCHC) determinationOrdered By: Jairon Medel on 09-18-2024 MCHC (RBC) [Mass/Vol] 31.0 g/dL Low 32-36 [facility] Mean platelet volume determi nationOrdered By: Jairon Torojenifersophia on 09-18-2024 Platelet mean volume (Bld) [Entitic vol] 10.9 fL 6.2-12.0 [facility] Monocyte percentageOrdered B y: Jairon Medel on 09-18-2024 Monocytes/100 WBC (Bld) 7.9 % 0-10 [facility] Neutrophil percentageOrdered By: Jairon Torojenifersophia on 09-18-2024 Neutrophils/100 WBC (Bld) 54.9 % 47-70 [facility] Nucleated red blood cell per centageOrdered By: Jairon Torojenifersophia on 09-18-2024 Nucleated RBC/100 WBC (Bld) [Ratio] 0 % 0-5 [facility] Platelet countOrdered By: Pooja meghanmakenzie Medel on 09-18-2024 Platelets (Bld) [#/Vol] 247 10*3/uL 150-450 [facility] Potassium measurement (mass/ volume)Ordered By: Jairon Medel on 09-18-2024 Potassium (Unsp spec) [Mass/Vol] 4.1 mmol/L 3.3-5.1 [facility] RBC Auto (Bld) [#/Vol]Ordere d By: Jairon Medel on 09-18-2024 RBC (Bld) [#/Vol] 3.48 10*6/uL Low 4.2-5.4 [facility] Serum creatinine measurement (mass/volume)Ordered By: Jairon Medel on 09-18-2024 Creatinine [Mass/Vol] 0.94 mg/dL 0.70-1.20 [facility] Serum glucose measurement (m ass/volume)Ordered By: Jairon Medel on 09-18-2024 Glucose [Mass/Vol] 86 mg/dL 70-99 [facility] Serum or plasma calcium krissy urement (mass/volume)Ordered By: Jairon Medel on 09-18-2024 Calcium [Mass/Vol] 9.9 mg/dL 7.6-11.0 [facility] Serum or plasma urea nitroge n measurement (mass/volume)Ordered By: Jairon Medel on 09-18-2024 Urea nitrogen [Mass/Vol] 22 mg/dL High 4-19 [facility] Sodium levelOrdered By: Carrillo Medel on 09-18-2024 Sodium [Moles/Vol] 141 mmol/L 133-145 [facility] White blood cell (WBC) count Ordered By: Jairon Medel on 09-18-2024 WBC (Bld) [#/Vol] 5.7 10*3/uL 4.4-11.0 [facility] Bilirubin directOrdered By: Jairon Medel on 08-28-2024 Bilirubin.direct [Mass/Vol] 0.12 mg/dL 0.00-0.30 [facility] Bilirubin, totalOrdered By: Jairon Medel on 08-28-2024 Bilirubin [Mass/Vol] 0.23 mg/dL 0.00-1.30 [facility] Calculated very low density lipoprotein (VLDL) cholesterol measurementOrdered By: Jairon Medel on 08-28-2024 Calculated very low density lipoprotein (VLDL) cholesterol measurement 23 mg/dL 5-40 [facility] LDL calc ser/plasOrdered By: Jairon Medel on 08-28-2024 Cholesterol in LDL [Mass/Vol] 46 mg/dL [facility] Comment on above: Wbovkrdfuc=317-374 m g/dL & Higher Suwo=102 mg/dL or greater Laboratory - Chemistry and C hemistry - challengeOrdered By: Jairon Medel on 08-28-2024 AST [Catalytic activity/Vol] 15 U/L <32 [facility] Screening total cholesterol/ high density lipoprotein (HDL) cholesterol ratioOrdered By: Jairon Medel on 08-28-2024 Cholesterol.total/Luisa sterol in HDL [Mass ratio] 2.33 {ratio} [facility] Serum globulin measurementOr dered By: Jairon Medel on 08-28-2024 Globulin (S) [Mass/Vol] 2.2 g/dL 2.2-4.2 [facility] Serum or plasma alanine crane otransferase (ALT) measurementOrdered By: Poojamargarette Medel on 08-28-2024 ALT [Catalytic activity/Vol] 9 U/L <35 [facility] Serum or plasma albumin krissy urement (mass/volume)Ordered By: Jairon Medel 08-28-2024 Albumin [Mass/Vol] 3.7 g/dL 3.4-4.8 [facility] Serum or plasma alkaline luis sphatase measurementOrdered By: Poojamargarette Torojenifersophia 08-28-2024 ALP [Catalytic activity/Vol] 73 U/L 35-104 [facility] Serum or plasma cholesterol in HDL measurement (mass/volume)Ordered By: Poojamargarette Medel 08-28-2024 Cholesterol in HDL [Mass/Vol] 52 mg/dL >40 [facility] Comment on above: National Cholesterol Education Program (NCEP) guidelines:<40 mg/dL: Low HDL-cholesterol (major risk factor for CHD)>= 60 mg/dL: High HDL-cholesterol (negative risk factor for CHD)HDL-cholesterol is affected by a number of factors, e.g. smoking, exercise, hormones, sex and age. Serum or plasma cholesterol measurement (mass/volume)Ordered By: Jairon Medel 08-28-2024 Cholesterol [Mass/Vol] 121 mg/dL <201 [facility] Comment on above: Cholesterol level, D esirable <200 mg/dLBorderline high cholesterol 200-239 mg/dLHigh cholesterol >=240 mg/dLRecommendations of the NCEP Adult Treatment Panel for the following risk-cutoff thresholds for the [place] population. Serum or plasma valproate me asurement (mass/volume)Ordered By: Jairon Medel on 08-28-2024 Valproate [Mass/Vol] 14 ug/mL Low 50-100 [facility] Comment on above: Valproic Acid concen trations >100 ug/mL are potentially toxic. Total proteinOrdered By: Masoud Medel 08-28-2024 Protein [Mass/Vol] 5.9 g/dL 5.9-8.4 [facility] Triglycerides measurementOrd ered By: Jairon Medel on 08-28-2024 Triglyceride [Mass/Vol] 115 mg/dL <199 [facility] Comment on above: The drugs N-Acetylcy steine and Metamizole may falsely depress this assay. Normal range: <150 mg/dLBorderline High: 150-199 mg/dLHigh: 200-499 mg/dLVery High: >500 mg/dL Absolute lymphocyte countOrd ered By: Jairon Medel on 08-21-2024 Lymphocytes Auto (Unsp spec) [#/Vol] 1.69 10*3/uL 0.83-4.51 [facility] Absolute neutrophil countOrd ered By: Jairon Medel on 08-21-2024 Neutrophils (Bld) [#/Vol] 4.3 10*3/uL 2.0-7.7 [facility] Anion gap in Serum or Plasma Ordered By: Jairon Medel on 08-21-2024 Anion gap [Moles/Vol] 10 mmol/L 5-15 [facility] Automated lymphocyte count a s percentage of total leukocytesOrdered By: Jairon Medel on 08-21-2024 Lymphocytes/100 WBC Auto (Unsp spec) 24.9 % 19-41 [facility] BUN/creatinine ratioOrdered By: Jairon Medel on 08-21-2024 Urea nitrogen/Creatinine [Mass ratio] 21.2 mg/mg High 10-20 [facility] Basophil percentageOrdered B y: Jairon Medel on 08-21-2024 Basophils/100 WBC (Bld) 0.7 % 0-1 [facility] Carbon dioxide, total [Moles /volume] in Central venous bloodOrdered By: Jairon Medel on 08-21-2024 CO2 [Moles/Vol] 24.4 mmol/L 21.0-32.0 [facility] Chloride assayOrdered By: Pooja Medel on 08-21-2024 Chloride [Moles/Vol] 108 mmol/L 98-108 [facility] Eosinophil percentageOrdered By: Jairon Medel on 08-21-2024 Eosinophils/100 WBC (Bld) 1.9 % 0-5 [facility] Erythrocyte distribution wid th ratioOrdered By: Jairon Medel on 08-21-2024 Erythrocyte distribution width (RBC) [Ratio] 14.2 % 11.6-14.6 [facility] Erythrocyte distribution wid th standard deviationOrdered By: Jairon Medel on 08-21-2024 Erythrocyte distribution width (RBC) [Ratio] 47.2 fl High 35.1-43.9 [facility] Glomerular filtration rate ( GFR) estimation/1.73 sq m using serum, plasma, or whole bOrdered By: Carrillonormannamakenzie Medel on 08-21-2024 GFR/1.73 sq M.predicted among non-blacks MDRD (S/P/Bld) [Vol rate/Area] 67 mL/min/{1.73_m2} >60 [facility] Comment on above: mL/min/1.73m2 CKD-EP I Creatinine Equation (2020) Hematocrit Auto (Bld) [Volum e fraction]Ordered By: Jairon Medel on 08-21-2024 Hematocrit (Bld) [Volume fraction] 31.9 % Low 37-47 [facility] Hemoglobin measurementOrdere d By: Jairon Medel 08-21-2024 Hemoglobin (Bld) [Mass/Vol] 10.2 g/dL Low 12.0-15.0 [facility] Immature granulocytes/100 WB C Auto (Bld)Ordered By: Jairon Medel 08-21-2024 Immature granulocytes/100 WBC (Bld) 0.100 % 0.0-0.9 [facility] Comment on above: IG% - Immature Granu locytes (promyelocytes, myelocytes and metamyelocytes) > 1% indicates that a LEFT SHIFT is Present. MCV (mean corpuscular volume ) determinationOrdered By: Jairon Medel on 08-21-2024 MCV (RBC) [Entitic vol] 91.7 fL 81-99 [facility] Mean corpuscular hemoglobin (MCH) determinationOrdered By: Jairon Medel 08-21-2024 MCH (RBC) [Entitic mass] 29.3 pg 27.0-32.0 [facility] Mean corpuscular hemoglobin concentration (MCHC) determinationOrdered By: Jairon Medel on 08-21-2024 MCHC (RBC) [Mass/Vol] 32.0 g/dL 32-36 [facility] Mean platelet volume determi nationOrdered By: Jairon Medel on 08-21-2024 Platelet mean volume (Bld) [Entitic vol] 10.6 fL 6.2-12.0 [facility] Monocyte percentageOrdered B y: Jairon Medel on 08-21-2024 Monocytes/100 WBC (Bld) 9.0 % 0-10 [facility] Neutrophil percentageOrdered By: Jairon Medel on 08-21-2024 Neutrophils/100 WBC (Bld) 63.4 % 47-70 [facility] Nucleated red blood cell per centageOrdered By: Jairon Medel on 08-21-2024 Nucleated RBC/100 WBC (Bld) [Ratio] 0 % 0-5 [facility] Platelet countOrdered By: Pooja Medel on 08-21-2024 Platelets (Bld) [#/Vol] 232 10*3/uL 150-450 [facility] Potassium measurement (mass/ volume)Ordered By: Jairon Medel on 08-21-2024 Potassium (Unsp spec) [Mass/Vol] 4.4 mmol/L 3.3-5.1 [facility] RBC Auto (Bld) [#/Vol]Ordere d By: Jairon Medel on 08-21-2024 RBC (Bld) [#/Vol] 3.48 10*6/uL Low 4.2-5.4 [facility] Serum creatinine measurement (mass/volume)Ordered By: Jairon Medel on 08-21-2024 Creatinine [Mass/Vol] 0.85 mg/dL 0.70-1.20 [facility] Serum glucose measurement (m ass/volume)Ordered By: Jairon Medel on 08-21-2024 Glucose [Mass/Vol] 95 mg/dL 70-99 [facility] Serum or plasma calcium krissy urement (mass/volume)Ordered By: Jairon Cortezjenifersophia on 08-21-2024 Calcium [Mass/Vol] 9.4 mg/dL 7.6-11.0 [facility] Serum or plasma urea nitroge n measurement (mass/volume)Ordered By: Jairon Medel on 08-21-2024 Urea nitrogen [Mass/Vol] 18 mg/dL 4-19 [facility] Sodium levelOrdered By: Carrillo Medel on 08-21-2024 Sodium [Moles/Vol] 142 mmol/L 133-145 [facility] White blood cell (WBC) count Ordered By: margarette Cortezdorcas on 08-21-2024 WBC (Bld) [#/Vol] 6.8 10*3/uL 4.4-11.0 [facility] Emergency Department Summary on 07-24-2024 Emergency Department Summary [facility] Medical Records Department [address] [place] [address] Emergency Department Summary 07/24/24 MR#: [id number] Acct: [id number] Name: CT DALTON Rep #: [id number] : 1940 83 From: Jean Claude Harry [...] and prediabetes. Took a fall today at [facility]. Now having right hip pain and unable to walk on her right hip. Denies any other complaints. Denies hitting her head. Denies head or neck pain. Prior similar symptoms: No Recent Illness/Hospitalizatio n: No PFSH PFS Medical History Malignant neoplasm of breast Prediabetes [...] PO DAILY 04/20/17 04/27/17 0 8:00 History [id number]-Rv-fbcg-m inerals 1 ea PO DAILY 04/20/17 Unknown [...] range of motion. 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 Neurologically she is awake and alert. She answers questions she does have dementia and some confusion. She does follow commands. Const Vital Signs: 07/24/24 01:24 07/24/24 01:24 Temperature 98 F Temperature Source Oral Pulse Rate 53 L Respirator (more content not included)... Normal [facility] HIP, UNI W/ Pelvis 2-3 Views on 07-24-2024 HIP, UNI W/ Pelvis 2-3 Views [facility] Imaging Services [address] [place], [place] [address] HIP, UNI W/ Pelvis 2-3 Views MR#: [id number] Acct: [id number] Name: CT DALTON Rep #: [id number] : 1940 F 83 From: Lauri mason MD PCP: Dr. Jairon Medel MD Status: REG ER Study: HIP, UNI W/ Pelvis 2-3 Views Date of Exam: Exam# [id number] Ordering Dr: Jean Claude Harry MD PROCEDURE: [...] Right hip moderate degenerative changes. Reading Location: [place] [address] CC: Dr. Jairon Medel MD; Dr. Jean Claude Harry MD Hook And Eye Attacher: Signed Normal [facility] Absolute lymphocyte countOrd ered By: Jairon Medel on 06-26-2024 Lymphocytes Auto (Unsp spec) [#/Vol] 2.05 10*3/uL 0.83-4.51 [facility] Absolute neutrophil countOrd ered By: Jairon Medel on 06-26-2024 Neutrophils (Bld) [#/Vol] 3.9 10*3/uL 2.0-7.7 [facility] Anion gap in Serum or Plasma Ordered By: Jairon Medel on 06-26-2024 Anion gap [Moles/Vol] 9 mmol/L 5-15 [facility] Automated lymphocyte count a s percentage of total leukocytesOrdered By: Jairon Medel on 06-26-2024 Lymphocytes/100 WBC Auto (Unsp spec) 30.5 % - [facility] BUN/creatinine ratioOrdered By: Jairon Medel on 06-26-2024 Urea nitrogen/Creatinine [Mass ratio] 20.9 mg/mg High 10-20 [facility] Basophil percentageOrdered B y: Jairon Medel on 06-26-2024 Basophils/100 WBC (Bld) 0.4 % 0-1 [facility] Carbon dioxide, total [Moles /volume] in Central venous bloodOrdered By: Jairon Medel on 06-26-2024 CO2 [Moles/Vol] 23.5 mmol/L 21.0-32.0 [facility] Chloride assayOrdered By: Pooja Medel on 06-26-2024 Chloride [Moles/Vol] 107 mmol/L 98-108 [facility] Eosinophil percentageOrdered By: Jairon Medel on 06-26-2024 Eosinophils/100 WBC (Bld) 1.9 % 0-5 [facility] Erythrocyte distribution wid th ratioOrdered By: Jairon Medel on 06-26-2024 Erythrocyte distribution width (RBC) [Ratio] 14.1 % 11.6-14.6 [facility] Erythrocyte distribution wid th standard deviationOrdered By: Jairon Medel on 06-26-2024 Erythrocyte distribution width (RBC) [Ratio] 46.5 fl High 35.1-43.9 [facility] Glomerular filtration rate ( GFR) estimation/1.73 sq m using serum, plasma, or whole bOrdered By: Jairon Medel on 06-26-2024 GFR/1.73 sq M.predicted among non-blacks MDRD (S/P/Bld) [Vol rate/Area] 55 mL/min/{1.73_m2} Low >60 [facility] Comment on above: mL/min/1.73m2 CKD-EP I Creatinine Equation (2020) Hematocrit Auto (Bld) [Volum e fraction]Ordered By: Jairon Medel on 06-26-2024 Hematocrit (Bld) [Volume fraction] 32.7 % Low 37-47 [facility] Hemoglobin measurementOrdere d By: Jairon Medel on 06-26-2024 Hemoglobin (Bld) [Mass/Vol] 10.1 g/dL Low 12.0-15.0 [facility] Immature granulocytes/100 WB C Auto (Bld)Ordered By: Jairon Medel on 06-26-2024 Immature granulocytes/100 WBC (Bld) 0.400 % 0.0-0.9 [facility] Comment on above: IG% - Immature Granu locytes (promyelocytes, myelocytes and metamyelocytes) > 1% indicates that a LEFT SHIFT is Present. MCV (mean corpuscular volume ) determinationOrdered By: Jairon Medel on 06-26-2024 MCV (RBC) [Entitic vol] 90.3 fL 81-99 [facility] Mean corpuscular hemoglobin (MCH) determinationOrdered By: Jairon Medel on 06-26-2024 MCH (RBC) [Entitic mass] 27.9 pg 27.0-32.0 [facility] Mean corpuscular hemoglobin concentration (MCHC) determinationOrdered By: Jairon Medel on 06-26-2024 MCHC (RBC) [Mass/Vol] 30.9 g/dL Low 32-36 [facility] Mean platelet volume determi nationOrdered By: Jairon Medel on 06-26-2024 Platelet mean volume (Bld) [Entitic vol] 10.3 fL 6.2-12.0 [facility] Monocyte percentageOrdered B y: Jairon Medel on 06-26-2024 Monocytes/100 WBC (Bld) 8.8 % 0-10 [facility] Neutrophil percentageOrdered By: Jairon Medel on 06-26-2024 Neutrophils/100 WBC (Bld) 58.0 % 47-70 [facility] Nucleated red blood cell per centageOrdered By: Jairon Medel on 06-26-2024 Nucleated RBC/100 WBC (Bld) [Ratio] 0 % 0-5 [facility] Platelet countOrdered By: Pooja Medel on 06-26-2024 Platelets (Bld) [#/Vol] 242 10*3/uL 150-450 [facility] Potassium measurement (mass/ volume)Ordered By: Jairon Medel on 06-26-2024 Potassium (Unsp spec) [Mass/Vol] 4.3 mmol/L 3.3-5.1 [facility] RBC Auto (Bld) [#/Vol]Ordere d By: Jairon Medel on 06-26-2024 RBC (Bld) [#/Vol] 3.62 10*6/uL Low 4.2-5.4 [facility] Serum creatinine measurement (mass/volume)Ordered By: Jairon Medel on 06-26-2024 Creatinine [Mass/Vol] 1.01 mg/dL 0.70-1.20 [facility] Serum glucose measurement (m ass/volume)Ordered By: Jairon Medel on 06-26-2024 Glucose [Mass/Vol] 89 mg/dL 70-99 [facility] Serum or plasma calcium krissy urement (mass/volume)Ordered By: Jairon Medel on 06-26-2024 Calcium [Mass/Vol] 9.6 mg/dL 7.6-11.0 [facility] Serum or plasma urea nitroge n measurement (mass/volume)Ordered By: Jairon Medel on 06-26-2024 Urea nitrogen [Mass/Vol] 21 mg/dL High 4- [facility] Sodium levelOrdered By: Carrillo braden Gianfranco on 06-26-2024 Sodium [Moles/Vol] 140 mmol/L 133-145 [facility] White blood cell (WBC) count Ordered By: Jairon Medel on 06-26-2024 WBC (Bld) [#/Vol] 6.7 10*3/uL 4.4-11.0 [facility] Absolute lymphocyte countOrd ered By: Jairon Medel on 05-29-2024 Lymphocytes Auto (Unsp spec) [#/Vol] 2.09 10*3/uL 0.83-4.51 [facility] Absolute neutrophil countOrd ered By: Jairon Medel on 05-29-2024 Neutrophils (Bld) [#/Vol] 3.4 10*3/uL 2.0-7.7 [facility] Anion gap in Serum or Plasma Ordered By: Jairon Medel on 05-29-2024 Anion gap [Moles/Vol] 10 mmol/L 5-15 [facility] Automated lymphocyte count a s percentage of total leukocytesOrdered By: Jairon Medel on 05-29-2024 Lymphocytes/100 WBC Auto (Unsp spec) 34.4 % - [facility] BUN/creatinine ratioOrdered By: Jairon Medel on 05-29-2024 Urea nitrogen/Creatinine [Mass ratio] 16.9 mg/mg 10-20 [facility] Basophil percentageOrdered B y: Jairon Medel on 05-29-2024 Basophils/100 WBC (Bld) 1.2 % High 0-1 [facility] Bilirubin directOrdered By: Jairon Medel on 05-29-2024 Bilirubin.direct [Mass/Vol] 0.17 mg/dL 0.00-0.30 [facility] Bilirubin, totalOrdered By: Jairon Medel on 05-29-2024 Bilirubin [Mass/Vol] 0.35 mg/dL 0.00-1.30 [facility] Carbon dioxide, total [Moles /volume] in Central venous bloodOrdered By: Jairon Medel on 05-29-2024 CO2 [Moles/Vol] 25.1 mmol/L 21.0-32.0 [facility] Chloride assayOrdered By: Pooja sreekanthbraden Medel on 05-29-2024 Chloride [Moles/Vol] 105 mmol/L 98-108 [facility] Eosinophil percentageOrdered By: Jairon Medel on 05-29-2024 Eosinophils/100 WBC (Bld) 1.6 % 0-5 [facility] Erythrocyte distribution wid th (RBC) [Ratio]Ordered By: Jairon Medel on 05-29-2024 Erythrocyte distribution width (RBC) [Entitic vol] 41.0 fL 35.1-43.9 [facility] Erythrocyte distribution wid th ratioOrdered By: Carrillonormannamakenzie Medel on 05-29-2024 Erythrocyte distribution width (RBC) [Ratio] 13.1 % 11.6-14.6 [facility] Erythrocyte distribution wid th standard deviationOrdered By: Jairon Torojenifersophia on 05-29-2024 Erythrocyte distribution width (RBC) [Ratio] 41.0 fl 35.1-43.9 [facility] GFR/1.73 sq M.predicted hua g non-blacks MDRD (S/P/Bld) [Vol rate/Area]Ordered By: Jairon Medel on 05-29-2024 Estimated GFR (MDRD) Non-Af Amer 50 Low >60 [facility] Comment on above: mL/min/1.73m2 CKD-EP I Creatinine Equation (2020) Glomerular filtration rate ( GFR) estimation/1.73 sq m using serum, plasma, or whole bOrdered By: Jairon Medel on 05-29-2024 GFR/1.73 sq M.predicted among non-blacks MDRD (S/P/Bld) [Vol rate/Area] 50 mL/min/{1.73_m2} Low >60 [facility] Comment on above: mL/min/1.73m2 CKD-EP I Creatinine Equation (2020) Hematocrit Auto (Bld) [Volum e fraction]Ordered By: Jairon Medel on 05-29-2024 Hematocrit (Bld) [Volume fraction] 33.4 % Low 37-47 [facility] Hemoglobin measurementOrdere d By: Jairon Medel on 05-29-2024 Hemoglobin (Bld) [Mass/Vol] 10.9 g/dL Low 12.0-15.0 [facility] Immature granulocytes/100 WB C Auto (Bld)Ordered By: Jairon Medel on 05-29-2024 Immature granulocytes/100 WBC (Bld) 0.200 % 0.0-0.9 [facility] Comment on above: IG% - Immature Granu locytes (promyelocytes, myelocytes and metamyelocytes) > 1% indicates that a LEFT SHIFT is Present. Laboratory - Chemistry and C hemistry - challengeOrdered By: Jairon Medel on 05-29-2024 AST [Catalytic activity/Vol] 20 U/L <32 [facility] Lymphocytes Auto (Unsp spec) [#/Vol]Ordered By: Jairon Medel on 05-29-2024 Lymphocytes (Bld) [#/Vol] 2.09 10*3/uL 0.83-4.51 [facility] Lymphocytes/100 WBC Auto (Un sp spec)Ordered By: Jairon Medel on 05-29-2024 Lymphocytes/100 WBC (Bld) 34.4 % 19-41 [facility] MCV (mean corpuscular volume ) determinationOrdered By: Jairon Medel on 05-29-2024 MCV (RBC) [Entitic vol] 85.9 fL 81-99 [facility] Mean corpuscular hemoglobin (MCH) determinationOrdered By: Jairon Medel on 05-29-2024 MCH (RBC) [Entitic mass] 28.0 pg 27.0-32.0 [facility] Mean corpuscular hemoglobin concentration (MCHC) determinationOrdered By: Jairon Medel on 05-29-2024 MCHC (RBC) [Mass/Vol] 32.6 g/dL 32-36 [facility] Mean platelet volume determi nationOrdered By: Jairon Medel on 05-29-2024 Platelet mean volume (Bld) [Entitic vol] 10.3 fL 6.2-12.0 [facility] Monocyte percentageOrdered B y: Jairon Medel on 05-29-2024 Monocytes/100 WBC (Bld) 7.6 % 0-10 [facility] Neutrophil percentageOrdered By: Carrillonormannamakenzie Medel on 05-29-2024 Neutrophils/100 WBC (Bld) 55.0 % 47-70 [facility] Nucleated red blood cell per centageOrdered By: Jairon Medel on 05-29-2024 Nucleated RBC/100 WBC (Bld) [Ratio] 0 % 0-5 [facility] Platelet countOrdered By: Pooja meghanmakenzie Medel on 05-29-2024 Platelets (Bld) [#/Vol] 247 10*3/uL 150-450 [facility] Potassium (Unsp spec) [Mass/ Vol]Ordered By: Jairon Medel on 05-29-2024 Potassium [Moles/Vol] 4.3 mmol/L 3.3-5.1 [facility] Potassium measurement (mass/ volume)Ordered By: Jairon Medel on 05-29-2024 Potassium (Unsp spec) [Mass/Vol] 4.3 mmol/L 3.3-5.1 [facility] RBC Auto (Bld) [#/Vol]Ordere d By: Jairon Medel on 05-29-2024 RBC (Bld) [#/Vol] 3.89 10*6/uL Low 4.2-5.4 [facility] Serum creatinine measurement (mass/volume)Ordered By: Jairon Medel on 05-29-2024 Creatinine [Mass/Vol] 1.08 mg/dL 0.70-1.20 [facility] Serum globulin measurementOr dered By: Jairon Medel on 05-29-2024 Globulin (S) [Mass/Vol] 2.5 g/dL 2.2-4.2 [facility] Serum glucose measurement (m ass/volume)Ordered By: Jairon Medel on 05-29-2024 Glucose [Mass/Vol] 89 mg/dL 70-99 [facility] Serum or plasma alanine crane otransferase (ALT) measurementOrdered By: Jairon Medel on 05-29-2024 ALT [Catalytic activity/Vol] 11 U/L <35 [facility] Serum or plasma albumin krissy urement (mass/volume)Ordered By: Jairon Medel on 05-29-2024 Albumin [Mass/Vol] 4.0 g/dL 3.4-4.8 [facility] Serum or plasma alkaline luis sphatase measurementOrdered By: Jairon Medel on 05-29-2024 ALP [Catalytic activity/Vol] 62 U/L 35-104 [facility] Serum or plasma calcium krissy urement (mass/volume)Ordered By: Jairon Medel on 05-29-2024 Calcium [Mass/Vol] 9.8 mg/dL 7.6-11.0 [facility] Serum or plasma urea nitroge n measurement (mass/volume)Ordered By: Jairon Medel on 05-29-2024 Urea nitrogen [Mass/Vol] 18 mg/dL 4-19 [facility] Sodium levelOrdered By: Carrillo Medel on 05-29-2024 Sodium [Moles/Vol] 140 mmol/L 133-145 [facility] Total proteinOrdered By: Masoud Medel on 05-29-2024 Protein [Mass/Vol] 6.4 g/dL 5.9-8.4 [facility] White blood cell (WBC) count Ordered By: Jairon Medel on 05-29-2024 WBC (Bld) [#/Vol] 6.1 10*3/uL 4.4-11.0 [facility] Absolute lymphocyte countOrd ered By: Jairon Medel on 05-24-2024 Lymphocytes Auto (Unsp spec) [#/Vol] 1.90 10*3/uL 0.83-4.51 [facility] Absolute neutrophil countOrd ered By: Poojasreekanthmahadmakenzie Torojenifersophia on 05-24-2024 Neutrophils (Bld) [#/Vol] 3.1 10*3/uL 2.0-7.7 [facility] Anion gap in Serum or Plasma Ordered By: Jairon Torojenifersophia on 05-24-2024 Anion gap [Moles/Vol] 11 mmol/L 5-15 [facility] Automated lymphocyte count a s percentage of total leukocytesOrdered By: Jairon Torojenifersophia on 05-24-2024 Lymphocytes/100 WBC Auto (Unsp spec) 33.6 % 19-41 [facility] BUN/creatinine ratioOrdered By: Jairon Torojenifersophia on 05-24-2024 Urea nitrogen/Creatinine [Mass ratio] 19.7 mg/mg 10-20 [facility] Basophil percentageOrdered B y: Carrillomahadmakenzie Torojenifersophia on 05-24-2024 Basophils/100 WBC (Bld) 1.1 % High 0-1 [facility] Bilirubin, totalOrdered By: Poojasreekanthmahadmakenzie Torojenifresophia on 05-24-2024 Bilirubin [Mass/Vol] 0.29 mg/dL 0.00-1.30 [facility] Carbon dioxide, total [Moles /volume] in Central venous bloodOrdered By: Jairon Torojenifersophia on 05-24-2024 CO2 [Moles/Vol] 23.5 mmol/L 21.0-32.0 [facility] Chloride assayOrdered By: Pooja sreekanthbraden Torojenifersophia on 05-24-2024 Chloride [Moles/Vol] 106 mmol/L 98-108 [facility] Eosinophil percentageOrdered By: Poojasreekanthmahadmakenzie Torojenifersophia on 05-24-2024 Eosinophils/100 WBC (Bld) 2.1 % 0-5 [facility] Erythrocyte distribution wid th (RBC) [Ratio]Ordered By: Carrillomahadmakenzie Torojenifersophia on 05-24-2024 Erythrocyte distribution width (RBC) [Entitic vol] 41.3 fL 35.1-43.9 [facility] Erythrocyte distribution wid th ratioOrdered By: Jairon Medel on 05-24-2024 Erythrocyte distribution width (RBC) [Ratio] 13.2 % 11.6-14.6 [facility] Erythrocyte distribution wid th standard deviationOrdered By: Jairon Medel on 05-24-2024 Erythrocyte distribution width (RBC) [Ratio] 41.3 fl 35.1-43.9 [facility] GFR/1.73 sq M.predicted hua g non-blacks MDRD (S/P/Bld) [Vol rate/Area]Ordered By: Jairon Medel on 05-24-2024 Estimated GFR (MDRD) Non-Af Amer 52 Low >60 [facility] [facility] Comment on above: mL/min/1.73m2 CKD-EP I Creatinine Equation (2020) Glomerular filtration rate ( GFR) estimation/1.73 sq m using serum, plasma, or whole bOrdered By: Jairon Medel on 05-24-2024 GFR/1.73 sq M.predicted among non-blacks MDRD (S/P/Bld) [Vol rate/Area] 52 mL/min/{1.73_m2} Low >60 [facility] Comment on above: mL/min/1.73m2 CKD-EP I Creatinine Equation (2020) Hematocrit Auto (Bld) [Volum e fraction]Ordered By: Jairon Medel on 05-24-2024 Hematocrit (Bld) [Volume fraction] 33.2 % Low 37-47 [facility] Hemoglobin A1c percentageOrd ered By: Jairon Medel on 05-24-2024 HbA1c (Bld) [Mass fraction] 5.5 % <5.7 [facility] Comment on above: Normal < 5.7 % Predi abetic 5.7 - 6.4 % Diabetic >or= 6.5 % Please note range changes. Hemoglobin measurementOrdere d By: Jairon Medel on 05-24-2024 Hemoglobin (Bld) [Mass/Vol] 10.7 g/dL Low 12.0-15.0 [facility] Immature granulocytes/100 WB C Auto (Bld)Ordered By: Jairon Medel on 05-24-2024 Immature granulocytes/100 WBC (Bld) 0.200 % 0.0-0.9 [facility] Comment on above: IG% - Immature Granu locytes (promyelocytes, myelocytes and metamyelocytes) > 1% indicates that a LEFT SHIFT is Present. Laboratory - Chemistry and C hemistry - challengeOrdered By: Jairon Medel on 05-24-2024 AST [Catalytic activity/Vol] 21 U/L <32 [facility] Lymphocytes Auto (Unsp spec) [#/Vol]Ordered By: [facility] on 05-24-2024 Lymphocytes (Bld) [#/Vol] 1.90 10*3/uL 0.83-4.51 [facility] Lymphocytes/100 WBC Auto (Un sp spec)Ordered By: Carrillonormannamakenzie Medel on 05-24-2024 Lymphocytes/100 WBC (Bld) 33.6 % 19-41 [facility] MCV (mean corpuscular volume ) determinationOrdered By: Jairon Medel on 05-24-2024 MCV (RBC) [Entitic vol] 86.2 fL 81-99 [facility] Mean corpuscular hemoglobin (MCH) determinationOrdered By: sreekanthnormannamakenzie Medel on 05-24-2024 MCH (RBC) [Entitic mass] 27.8 pg 27.0-32.0 [facility] Mean corpuscular hemoglobin concentration (MCHC) determinationOrdered By: Carrillonormannamakenzie Medel on 05-24-2024 MCHC (RBC) [Mass/Vol] 32.2 g/dL 32-36 [facility] Mean platelet volume determi nationOrdered By: [facility] on 05-24-2024 Platelet mean volume (Bld) [Entitic vol] 10.2 fL 6.2-12.0 [facility] Monocyte percentageOrdered B y: Jairon Medel on 05-24-2024 Monocytes/100 WBC (Bld) 8.1 % 0-10 [facility] Neutrophil percentageOrdered By: Jairon Medel on 05-24-2024 Neutrophils/100 WBC (Bld) 54.9 % 47-70 [facility] Nucleated red blood cell per centageOrdered By: Jairon Medel on 05-24-2024 Nucleated RBC/100 WBC (Bld) [Ratio] 0 % 0-5 [facility] Platelet countOrdered By: Pooja Medel on 05-24-2024 Platelets (Bld) [#/Vol] 264 10*3/uL 150-450 [facility] Potassium (Unsp spec) [Mass/ Vol]Ordered By: Jairon Medel on 05-24-2024 Potassium [Moles/Vol] 3.9 mmol/L 3.3-5.1 [facility] Potassium measurement (mass/ volume)Ordered By: Jairon Medel on 05-24-2024 Potassium (Unsp spec) [Mass/Vol] 3.9 mmol/L 3.3-5.1 [facility] RBC Auto (Bld) [#/Vol]Ordere d By: Jairon Medel on 05-24-2024 RBC (Bld) [#/Vol] 3.85 10*6/uL Low 4.2-5.4 [facility] Serum creatinine measurement (mass/volume)Ordered By: Jairon Medel on 05-24-2024 Creatinine [Mass/Vol] 1.05 mg/dL 0.70-1.20 [facility] Serum globulin measurementOr dered By: Jairon Medel on 05-24-2024 Globulin (S) [Mass/Vol] 2.6 g/dL 2.2-4.2 [facility] Serum glucose measurement (m ass/volume)Ordered By: Jairon Medel on 05-24-2024 Glucose [Mass/Vol] 95 mg/dL 70-99 [facility] Serum or plasma alanine crane otransferase (ALT) measurementOrdered By: Jairon Medel on 05-24-2024 ALT [Catalytic activity/Vol] 11 U/L <35 [facility] Serum or plasma albumin krissy urement (mass/volume)Ordered By: Jairon Medel 05-24-2024 Albumin [Mass/Vol] 4.0 g/dL 3.4-4.8 [facility] Serum or plasma albumin/glob ulin mass ratioOrdered By: Jairon Medel on 05-24-2024 Albumin/Globulin [Mass ratio] 1.5 {ratio} 0.9-2.4 [facility] Serum or plasma alkaline luis sphatase measurementOrdered By: Jairon Medel on 05-24-2024 ALP [Catalytic activity/Vol] 67 U/L 35-104 [facility] Serum or plasma calcium krissy urement (mass/volume)Ordered By: Jairon Medel on 05-24-2024 Calcium [Mass/Vol] 9.9 mg/dL 7.6-11.0 [facility] Serum or plasma urea nitroge n measurement (mass/volume)Ordered By: Jairon Medel on 05-24-2024 Urea nitrogen [Mass/Vol] 21 mg/dL High 4-19 [facility] Sodium levelOrdered By: Carrillo Medel on 05-24-2024 Sodium [Moles/Vol] 141 mmol/L 133-145 [facility] Total proteinOrdered By: Masoud Medel on 05-24-2024 Protein [Mass/Vol] 6.6 g/dL 5.9-8.4 [facility] White blood cell (WBC) count Ordered By: Jairon Medel on 05-24-2024 WBC (Bld) [#/Vol] 5.7 10*3/uL 4.4-11.0 [facility] Anion gap in Serum or Plasma Ordered By: Jairon Medel on 05-15-2024 Anion gap [Moles/Vol] 10 mmol/L 5-15 [facility] BUN/creatinine ratioOrdered By: Jairon Medel on 05-15-2024 Urea nitrogen/Creatinine [Mass ratio] 15.3 mg/mg 10-20 [facility] Carbon dioxide, total [Moles /volume] in Central venous bloodOrdered By: Jairon Medel on 05-15-2024 CO2 [Moles/Vol] 25.0 mmol/L 21.0-32.0 [facility] Chloride assayOrdered By: Pooja Medel on 05-15-2024 Chloride [Moles/Vol] 108 mmol/L 98-108 [facility] GFR/1.73 sq M.predicted hua g non-blacks MDRD (S/P/Bld) [Vol rate/Area]Ordered By: Jairon Medel on 05-15-2024 Estimated GFR (MDRD) Non-Af Amer 57 Low >60 [facility] Comment on above: mL/min/1.73m2 CKD-EP I Creatinine Equation (2020) Glomerular filtration rate ( GFR) estimation/1.73 sq m using serum, plasma, or whole bOrdered By: Jairon Medel on 05-15-2024 GFR/1.73 sq M.predicted among non-blacks MDRD (S/P/Bld) [Vol rate/Area] 57 mL/min/{1.73_m2} Low >60 [facility] Comment on above: mL/min/1.73m2 CKD-EP I Creatinine Equation (2020) Potassium (Unsp spec) [Mass/ Vol]Ordered By: Jairon Medel on 05-15-2024 Potassium [Moles/Vol] 3.8 mmol/L 3.3-5.1 [facility] Potassium measurement (mass/ volume)Ordered By: Jairon Medel on 05-15-2024 Potassium (Unsp spec) [Mass/Vol] 3.8 mmol/L 3.3-5.1 [facility] Serum creatinine measurement (mass/volume)Ordered By: Jairon Medel on 05-15-2024 Creatinine [Mass/Vol] 0.98 mg/dL 0.70-1.20 [facility] Serum glucose measurement (m ass/volume)Ordered By: Jairon Medel on 05-15-2024 Glucose [Mass/Vol] 87 mg/dL 70-99 [facility] Serum or plasma calcium krissy urement (mass/volume)Ordered By: Jairon Medel on 05-15-2024 Calcium [Mass/Vol] 9.8 mg/dL 7.6-11.0 [facility] Serum or plasma urea nitroge n measurement (mass/volume)Ordered By: Jairon Medel on 05-15-2024 Urea nitrogen [Mass/Vol] 15 mg/dL 4-19 [facility] Sodium levelOrdered By: Carrillo Medel on 05-15-2024 Sodium [Moles/Vol] 143 mmol/L 133-145 [facility] Absolute lymphocyte countOrd ered By: Jairon Medel on 05-01-2024 Lymphocytes Auto (Unsp spec) [#/Vol] 1.90 10*3/uL 0.83-4.51 [facility] Absolute neutrophil countOrd ered By: Jairon Medel on 05-01-2024 Neutrophils (Bld) [#/Vol] 2.7 10*3/uL 2.0-7.7 [facility] Anion gap in Serum or Plasma Ordered By: Poojasreekanthmahadmakenzie Torojenifersophia on 05-01-2024 Anion gap [Moles/Vol] 11 mmol/L 5-15 [facility] Automated lymphocyte count a s percentage of total leukocytesOrdered By: Jairon Medel on 05-01-2024 Lymphocytes/100 WBC Auto (Unsp spec) 35.5 % 19-41 [facility] BUN/creatinine ratioOrdered By: Jairon Cortezdorcas on 05-01-2024 Urea nitrogen/Creatinine [Mass ratio] 17.8 mg/mg 10-20 [facility] Basophil percentageOrdered B y: Jairon Medel on 05-01-2024 Basophils/100 WBC (Bld) 1.5 % High 0-1 [facility] Carbon dioxide, total [Moles /volume] in Central venous bloodOrdered By: Poojasreekanthmahadmakenzie Torojenifersophia on 05-01-2024 CO2 [Moles/Vol] 23.3 mmol/L 21.0-32.0 [facility] Chloride assayOrdered By: Pooja meghanmakenzie Torojenifersophia on 05-01-2024 Chloride [Moles/Vol] 107 mmol/L 98-108 [facility] Eosinophil percentageOrdered By: Jairon Cortezjenifersophia on 05-01-2024 Eosinophils/100 WBC (Bld) 2.2 % 0-5 [facility] Erythrocyte distribution wid th (RBC) [Ratio]Ordered By: Poojasreekanthmahadbe Gianfranco on 05-01-2024 Erythrocyte distribution width (RBC) [Entitic vol] 44.5 fL High 35.1-43.9 [facility] Erythrocyte distribution wid th ratioOrdered By: Jairon Medel on 05-01-2024 Erythrocyte distribution width (RBC) [Ratio] 13.0 % 11.6-14.6 [facility] Erythrocyte distribution wid th standard deviationOrdered By: Jairon Medel on 05-01-2024 Erythrocyte distribution width (RBC) [Ratio] 44.5 fl High 35.1-43.9 [facility] GFR/1.73 sq M.predicted hua g non-blacks MDRD (S/P/Bld) [Vol rate/Area]Ordered By: Jairon Medel on 05-01-2024 Estimated GFR (MDRD) Non-Af Amer 58 Low >60 [facility] Comment on above: mL/min/1.73m2 CKD-EP I Creatinine Equation (2020) Glomerular filtration rate ( GFR) estimation/1.73 sq m using serum, plasma, or whole bOrdered By: Jairon Medel on 05-01-2024 GFR/1.73 sq M.predicted among non-blacks MDRD (S/P/Bld) [Vol rate/Area] 58 mL/min/{1.73_m2} Low >60 [facility] Comment on above: mL/min/1.73m2 CKD-EP I Creatinine Equation (2020) Hematocrit Auto (Bld) [Volum e fraction]Ordered By: Jairon Medel 05-01-2024 Hematocrit (Bld) [Volume fraction] 37.3 % 37-47 [facility] Hemoglobin measurementOrdere d By: Jairon Medel on 05-01-2024 Hemoglobin (Bld) [Mass/Vol] 11.3 g/dL Low 12.0-15.0 [facility] Immature granulocytes/100 WB C Auto (Bld)Ordered By: Jairon Medel on 05-01-2024 Immature granulocytes/100 WBC (Bld) 1.100 % High 0.0-0.9 [facility] Comment on above: IG% - Immature Granu locytes (promyelocytes, myelocytes and metamyelocytes) > 1% indicates that a LEFT SHIFT is Present. Lymphocytes Auto (Unsp spec) [#/Vol]Ordered By: Jairon Medel on 05-01-2024 Lymphocytes (Bld) [#/Vol] 1.90 10*3/uL 0.83-4.51 [facility] Lymphocytes/100 WBC Auto (Un sp spec)Ordered By: Jairon Medel on 05-01-2024 Lymphocytes/100 WBC (Bld) 35.5 % 19-41 [facility] MCV (mean corpuscular volume ) determinationOrdered By: Jairon Medel on 05-01-2024 MCV (RBC) [Entitic vol] 93.5 fL 81-99 [facility] Mean corpuscular hemoglobin (MCH) determinationOrdered By: Jairon Medel on 05-01-2024 MCH (RBC) [Entitic mass] 28.3 pg 27.0-32.0 [facility] Mean corpuscular hemoglobin concentration (MCHC) determinationOrdered By: Jairon Medel on 05-01-2024 MCHC (RBC) [Mass/Vol] 30.3 g/dL Low 32-36 [facility] Mean platelet volume determi nationOrdered By: Jairon Medel on 05-01-2024 Platelet mean volume (Bld) [Entitic vol] 10.2 fL 6.2-12.0 [facility] Monocyte percentageOrdered B y: Jairon Medel on 05-01-2024 Monocytes/100 WBC (Bld) 9.0 % 0-10 [facility] Neutrophil percentageOrdered By: Jairon Medel on 05-01-2024 Neutrophils/100 WBC (Bld) 50.7 % 47-70 [facility] Nucleated red blood cell per centageOrdered By: Jairon Medel on 05-01-2024 Nucleated RBC/100 WBC (Bld) [Ratio] 0 % 0-5 [facility] Platelet countOrdered By: Pooja Medel on 05-01-2024 Platelets (Bld) [#/Vol] 235 10*3/uL 150-450 [facility] Potassium (Unsp spec) [Mass/ Vol]Ordered By: Poojasreekanthmahadmakenzie Torojenifersophia on 05-01-2024 Potassium [Moles/Vol] 4.3 mmol/L 3.3-5.1 [facility] Potassium measurement (mass/ volume)Ordered By: Poojasreekanthbraden Medel on 05-01-2024 Potassium (Unsp spec) [Mass/Vol] 4.3 mmol/L 3.3-5.1 [facility] RBC Auto (Bld) [#/Vol]Ordere d By: Jairon Cortezdorcas on 05-01-2024 RBC (Bld) [#/Vol] 3.99 10*6/uL Low 4.2-5.4 [facility] Serum creatinine measurement (mass/volume)Ordered By: Poojasreekanthmahadmakenzie Torojenifersophia on 05-01-2024 Creatinine [Mass/Vol] 0.96 mg/dL 0.70-1.20 [facility] Serum glucose measurement (m ass/volume)Ordered By: Jairon Torojenifersophia on 05-01-2024 Glucose [Mass/Vol] 89 mg/dL 70-99 [facility] Serum or plasma calcium krissy urement (mass/volume)Ordered By: Poojasreekanthbraden Cortezdorcas on 05-01-2024 Calcium [Mass/Vol] 9.8 mg/dL 7.6-11.0 [facility] Serum or plasma urea nitroge n measurement (mass/volume)Ordered By: Poojamargarette Torojenifersophia on 05-01-2024 Urea nitrogen [Mass/Vol] 17 mg/dL 4-19 [facility] Sodium levelOrdered By: Carrillo feliciano Cortezjenifersophia on 05-01-2024 Sodium [Moles/Vol] 141 mmol/L 133-145 [facility] White blood cell (WBC) count Ordered By: Poojasreekanthmahadmakenzie Torojenifersophia on 05-01-2024 WBC (Bld) [#/Vol] 5.4 10*3/uL 4.4-11.0 [facility] Absolute lymphocyte countOrd ered By: Jairon Torojenifersophia on 04-03-2024 Lymphocytes Auto (Unsp spec) [#/Vol] 1.70 10*3/uL 0.83-4.51 [facility] Absolute neutrophil countOrd ered By: Jairon Medel on 04-03-2024 Neutrophils (Bld) [#/Vol] 3.0 10*3/uL 2.0-7.7 [facility] Automated lymphocyte count a s percentage of total leukocytesOrdered By: Jairon Medel on 04-03-2024 Lymphocytes/100 WBC Auto (Unsp spec) 32.1 % 19-41 [facility] Basophil percentageOrdered B y: Jairon Medel on 04-03-2024 Basophils/100 WBC (Bld) 1.3 % High 0-1 [facility] Blood urea nitrogen (BUN)/cr eatinine ratioOrdered By: aJiron Medel on 04-03-2024 Urea nitrogen/Creatinine [Mass ratio] 21.1 mg/mg High 10-20 [facility] Carbon dioxide measurementOr dered By: Jairon Medel on 04-03-2024 CO2 [Moles/Vol] 27.0 mmol/L 21.0-32.0 [facility] Chloride measurementOrdered By: Jairon Medel on 04-03-2024 Chloride [Moles/Vol] 111 mmol/L High 98-107 [facility] Eosinophil percentageOrdered By: Jairon Medel on 04-03-2024 Eosinophils/100 WBC (Bld) 2.3 % 0-5 [facility] Erythrocyte distribution wid th (RBC) [Ratio]Ordered By: Jairon Medel on 04-03-2024 Erythrocyte distribution width (RBC) [Entitic vol] 43.2 fL 35.1-43.9 [facility] Erythrocyte distribution wid th ratioOrdered By: Jairon Medel on 04-03-2024 Erythrocyte distribution width (RBC) [Ratio] 13.2 % 11.6-14.6 [facility] Erythrocyte distribution wid th standard deviationOrdered By: Jairon Medel on 04-03-2024 Erythrocyte distribution width (RBC) [Ratio] 43.2 fl 35.1-43.9 [facility] Estimated glomerular filtrat ion rate (GFR) AmericanOrdered By: Jairon Medel on 04-03-2024 Estimated GFR (MDRD) Amer 72 mL/min >60 [facility] Comment on above: GFR Calc Glomerular filtration rate ( GFR) estimationOrdered By: Jairon Medel on 04-03-2024 Estimated GFR (MDRD) Non-Af Amer 59 mL/min Low >60 [facility] Comment on above: Non- GFR Calc GFR/1.73 sq M.predicted among non-blacks MDRD (S/P/Bld) [Vol rate/Area] 59 mL/min/{1.73_m2} Low >60 [facility] Comment on above: Non- GFR Calc Glucose measurementOrdered B y: Jairon Medel on 04-03-2024 Glucose [Mass/Vol] 93 mg/dL 74-106 [facility] Hematocrit Auto (Bld) [Volum e fraction]Ordered By: Jairon Medel on 04-03-2024 Hematocrit (Bld) [Volume fraction] 31.6 % Low 37-47 [facility] Hemoglobin measurementOrdere d By: Jairon Medel on 04-03-2024 Hemoglobin (Bld) [Mass/Vol] 9.7 g/dL Low 12.0-15.0 [facility] Immature granulocytes/100 WB C Auto (Bld)Ordered By: Jairon Medel on 04-03-2024 Immature granulocytes/100 WBC (Bld) 0.200 % 0.0-0.9 [facility] Comment on above: IG% - Immature Granu locytes (promyelocytes, myelocytes and metamyelocytes) > 1% indicates that a LEFT SHIFT is Present. Lymphocytes Auto (Unsp spec) [#/Vol]Ordered By: Jairon Medel on 04-03-2024 Lymphocytes (Bld) [#/Vol] 1.70 10*3/uL 0.83-4.51 [facility] Lymphocytes/100 WBC Auto (Un sp spec)Ordered By: Jairon Medel on 04-03-2024 Lymphocytes/100 WBC (Bld) 32.1 % 19-41 [facility] MCV (mean corpuscular volume ) determinationOrdered By: Jairon Medel on 04-03-2024 MCV (RBC) [Entitic vol] 91.1 fL 81-99 [facility] Mean corpuscular hemoglobin (MCH) determinationOrdered By: Jairon Medel on 04-03-2024 MCH (RBC) [Entitic mass] 28.0 pg 27.0-32.0 [facility] Mean corpuscular hemoglobin concentration (MCHC) determinationOrdered By: Jairon Medel on 04-03-2024 MCHC (RBC) [Mass/Vol] 30.7 g/dL Low 32-36 [facility] Mean platelet volume determi nationOrdered By: Jairon Medel on 04-03-2024 Platelet mean volume (Bld) [Entitic vol] 9.9 fL 6.2-12.0 [facility] Monocyte percentageOrdered B y: Jairon Medel on 04-03-2024 Monocytes/100 WBC (Bld) 8.3 % 0-10 [facility] Neutrophil percentageOrdered By: Jairon Medel on 04-03-2024 Neutrophils/100 WBC (Bld) 55.8 % 47-70 [facility] Nucleated red blood cell per centageOrdered By: Jairon Medel on 04-03-2024 Nucleated RBC/100 WBC (Bld) [Ratio] 0 % 0-5 [facility] Platelet countOrdered By: Pooja Medel on 04-03-2024 Platelets (Bld) [#/Vol] 229 10*3/uL 150-450 [facility] Potassium measurementOrdered By: Jairon Medel on 04-03-2024 Potassium [Moles/Vol] 4.4 mmol/L 3.5-5.1 [facility] RBC Auto (Bld) [#/Vol]Ordere d By: Jairon Medel on 04-03-2024 RBC (Bld) [#/Vol] 3.47 10*6/uL Low 4.2-5.4 [facility] Serum anion gap measurementO rdered By: Jairon Medel on 04-03-2024 Anion gap [Moles/Vol] 6 mmol/L 5-15 [facility] Serum or plasma calcium krissy urement (mass/volume)Ordered By: Efmargarette Torojenifersophia on 04-03-2024 Calcium [Mass/Vol] 9.4 mg/dL 8.5-10.1 [facility] Serum or plasma creatinine m easurement (mass/volume)Ordered By: Goldiemakenzie Torojenifersophia on 04-03-2024 Creatinine [Mass/Vol] 0.95 mg/dL 0.55-1.02 [facility] Comment on above: The validity of the calculated GFR & GFRAA in patients over 70 years has not been determined. Clinical correlation is essential. Serum or plasma urea nitroge n measurement (mass/volume)Ordered By: Jairon Medel on 04-03-2024 Urea nitrogen [Mass/Vol] 20 mg/dL High 7-18 [facility] Sodium levelOrdered By: Poojasreekanth braden Cortezjenifersophia on 04-03-2024 Sodium [Moles/Vol] 144 mmol/L 136-145 [facility] White blood cell (WBC) count Ordered By: Poojasreekanthmahadmakenzie Torojenifersophia on 04-03-2024 WBC (Bld) [#/Vol] 5.3 10*3/uL 4.4-11.0 [facility] Absolute lymphocyte countOrd ered By: Poojasreekanthmahadmakenzie Torojenifersophia on 03-27-2024 Lymphocytes Auto (Unsp spec) [#/Vol] 2.06 10*3/uL 0.83-4.51 [facility] Absolute neutrophil countOrd ered By: sreekanthmahadmakenzie Torojenifersophia on 03-27-2024 Neutrophils (Bld) [#/Vol] 3.3 10*3/uL 2.0-7.7 [facility] Automated lymphocyte count a s percentage of total leukocytesOrdered By: Jairon Torojenifersophia on 03-27-2024 Lymphocytes/100 WBC Auto (Unsp spec) 33.5 % 19-41 [facility] Basophil percentageOrdered B y: Goldiemakenzie Torojenifersophia on 03-27-2024 Basophils/100 WBC (Bld) 0.8 % 0-1 [facility] Blood urea nitrogen (BUN)/cr eatinine ratioOrdered By: Poojasreekanthmahadmakenzie Torojenifersophia on 03-27-2024 Urea nitrogen/Creatinine [Mass ratio] 19.3 mg/mg 10-20 [facility] Carbon dioxide measurementOr dered By: Jairon Medel on 03-27-2024 CO2 [Moles/Vol] 27.0 mmol/L 21.0-32.0 [facility] Chloride measurementOrdered By: Jairon Medel on 03-27-2024 Chloride [Moles/Vol] 110 mmol/L High 98-107 [facility] Eosinophil percentageOrdered By: Jairon Medel on 03-27-2024 Eosinophils/100 WBC (Bld) 2.3 % 0-5 [facility] Erythrocyte distribution wid th (RBC) [Ratio]Ordered By: Jairon Medel on 03-27-2024 Erythrocyte distribution width (RBC) [Entitic vol] 43.7 fL 35.1-43.9 [facility] Erythrocyte distribution wid th ratioOrdered By: Jairon Medel on 03-27-2024 Erythrocyte distribution width (RBC) [Ratio] 13.2 % 11.6-14.6 [facility] Erythrocyte distribution wid th standard deviationOrdered By: Jairon Medel on 03-27-2024 Erythrocyte distribution width (RBC) [Ratio] 43.7 fl 35.1-43.9 [facility] Estimated glomerular filtrat ion rate (GFR) AmericanOrdered By: Jairon Medel on 03-27-2024 Estimated GFR (MDRD) Amer 69 mL/min >60 [facility] Comment on above: GFR Calc Glomerular filtration rate ( GFR) estimationOrdered By: Jairon Medel on 03-27-2024 Estimated GFR (MDRD) Non-Af Amer 57 mL/min Low >60 [facility] Comment on above: Non- GFR Calc GFR/1.73 sq M.predicted among non-blacks MDRD (S/P/Bld) [Vol rate/Area] 57 mL/min/{1.73_m2} Low >60 [facility] Comment on above: Non- GFR Calc Glucose measurementOrdered B y: Jairon Medel on 03-27-2024 Glucose [Mass/Vol] 89 mg/dL 74-106 [facility] Hematocrit Auto (Bld) [Volum e fraction]Ordered By: Jairon Medel on 03-27-2024 Hematocrit (Bld) [Volume fraction] 30.9 % Low 37-47 [facility] Hemoglobin measurementOrdere d By: Jairon Medel on 03-27-2024 Hemoglobin (Bld) [Mass/Vol] 9.6 g/dL Low 12.0-15.0 [facility] Immature granulocytes/100 WB C Auto (Bld)Ordered By: Jairon Medel on 03-27-2024 Immature granulocytes/100 WBC (Bld) 0.500 % 0.0-0.9 [facility] Comment on above: IG% - Immature Granu locytes (promyelocytes, myelocytes and metamyelocytes) > 1% indicates that a LEFT SHIFT is Present. Lymphocytes Auto (Unsp spec) [#/Vol]Ordered By: Jairon Medel on 03-27-2024 Lymphocytes (Bld) [#/Vol] 2.06 10*3/uL 0.83-4.51 [facility] Lymphocytes/100 WBC Auto (Un sp spec)Ordered By: Jairon Medel on 03-27-2024 Lymphocytes/100 WBC (Bld) 33.5 % 19-41 [facility] MCV (mean corpuscular volume ) determinationOrdered By: Jairon Medel on 03-27-2024 MCV (RBC) [Entitic vol] 90.1 fL 81-99 [facility] Mean corpuscular hemoglobin (MCH) determinationOrdered By: Jairon Medel on 03-27-2024 MCH (RBC) [Entitic mass] 28.0 pg 27.0-32.0 [facility] Mean corpuscular hemoglobin concentration (MCHC) determinationOrdered By: Jairon Medel on 03-27-2024 MCHC (RBC) [Mass/Vol] 31.1 g/dL Low 32-36 [facility] Mean platelet volume determi nationOrdered By: Jairon Medel on 03-27-2024 Platelet mean volume (Bld) [Entitic vol] 10.2 fL 6.2-12.0 [facility] Monocyte percentageOrdered B y: Jairon Medel on 03-27-2024 Monocytes/100 WBC (Bld) 9.6 % 0-10 [facility] Neutrophil percentageOrdered By: Jairon Medel on 03-27-2024 Neutrophils/100 WBC (Bld) 53.3 % 47-70 [facility] Nucleated red blood cell per centageOrdered By: Jairon Medel on 03-27-2024 Nucleated RBC/100 WBC (Bld) [Ratio] 0 % 0-5 [facility] Platelet countOrdered By: Pooja Medel on 03-27-2024 Platelets (Bld) [#/Vol] 235 10*3/uL 150-450 [facility] Potassium measurementOrdered By: Jairon Medel on 03-27-2024 Potassium [Moles/Vol] 4.0 mmol/L 3.5-5.1 [facility] RBC Auto (Bld) [#/Vol]Ordere d By: Jairon Medel on 03-27-2024 RBC (Bld) [#/Vol] 3.43 10*6/uL Low 4.2-5.4 [facility] Serum anion gap measurementO rdered By: Jairon Medel on 03-27-2024 Anion gap [Moles/Vol] 6 mmol/L 5-15 [facility] Serum or plasma calcium krissy urement (mass/volume)Ordered By: Jairon Medel on 03-27-2024 Calcium [Mass/Vol] 9.3 mg/dL 8.5-10.1 [facility] Serum or plasma creatinine m easurement (mass/volume)Ordered By: Jairon Medel on 03-27-2024 Creatinine [Mass/Vol] 0.98 mg/dL 0.55-1.02 [facility] Comment on above: The validity of the calculated GFR & GFRAA in patients over 70 years has not been determined. Clinical correlation is essential. Serum or plasma urea nitroge n measurement (mass/volume)Ordered By: Jairon Medel on 03-27-2024 Urea nitrogen [Mass/Vol] 19 mg/dL High 7-18 [facility] Sodium levelOrdered By: Carrillo Medel on 03-27-2024 Sodium [Moles/Vol] 143 mmol/L 136-145 [facility] White blood cell (WBC) count Ordered By: Jairon Medel on 03-27-2024 WBC (Bld) [#/Vol] 6.2 10*3/uL 4.4-11.0 [facility] [id number] DOrdered By: Sophia Medel on 02-28-2024 Vitamin D 25-Hydroxy 60.8 ng/mL [facility] Comment on above: Vitamin D 25(OH) Sta tus Range Deficiency <20 ng/mL (50nmol/L) Insufficiency 20 - 30 ng/mL (50 - 75 nmol/L) Sufficiency 30 - 100 ng/mL (75 - 250 nmol/L) Toxicity >100 ng/mL (>250 nmol/L) Absolute lymphocyte countOrd ered By: Jairon Medel on 02-28-2024 Lymphocytes Auto (Unsp spec) [#/Vol] 1.75 10*3/uL 0.83-4.51 [facility] Absolute neutrophil countOrd ered By: Jairon Medel on 02-28-2024 Neutrophils (Bld) [#/Vol] 3.9 10*3/uL 2.0-7.7 [facility] Albumin to globulin ratioOrd ered By: Jairon Medel on 02-28-2024 Albumin/Globulin [Mass ratio] 1.0 {ratio} 0.9-2.4 [facility] Automated lymphocyte count a s percentage of total leukocytesOrdered By: Jairon Medel on 02-28-2024 Lymphocytes/100 WBC Auto (Unsp spec) 27.3 % 19-41 [facility] Basophil percentageOrdered B y: Jairon Medel on 02-28-2024 Basophils/100 WBC (Bld) 0.8 % 0-1 [facility] Bilirubin, totalOrdered By: Jairon Medel on 02-28-2024 Bilirubin [Mass/Vol] 0.20 mg/dL 0.20-1.00 [facility] Comment on above: For patients on eltr ombopag therapy, use of Dimension [place] TBIL is not recommended. Blood urea nitrogen (BUN)/cr eatinine ratioOrdered By: Jairon Medel on 02-28-2024 Urea nitrogen/Creatinine [Mass ratio] 24.1 mg/mg High 10-20 [facility] Carbon dioxide measurementOr dered By: Jairon Medel on 02-28-2024 CO2 [Moles/Vol] 27.0 mmol/L 21.0-32.0 [facility] Chloride measurementOrdered By: Jairon Medel on 02-28-2024 Chloride [Moles/Vol] 111 mmol/L High 98-107 [facility] Eosinophil percentageOrdered By: Jairon Medel on 02-28-2024 Eosinophils/100 WBC (Bld) 2.3 % 0-5 [facility] Erythrocyte distribution wid th (RBC) [Ratio]Ordered By: Jairon Medel on 02-28-2024 Erythrocyte distribution width (RBC) [Entitic vol] 43.7 fL 35.1-43.9 [facility] Erythrocyte distribution wid th ratioOrdered By: Jairon Medel on 02-28-2024 Erythrocyte distribution width (RBC) [Ratio] 13.4 % 11.6-14.6 [facility] Erythrocyte distribution wid th standard deviationOrdered By: [facility] Med[facility] on 02-28-2024 Erythrocyte distribution width (RBC) [Ratio] 43.7 fl 35.1-43.9 [facility] Estimated glomerular filtrat ion rate (GFR) AmericanOrdered By: Jairon Medel on 02-28-2024 Estimated GFR (MDRD) Amer 72 mL/min >60 [facility] Comment on above: GFR Calc Glomerular filtration rate ( GFR) estimationOrdered By: Jairon Medel on 02-28-2024 Estimated GFR (MDRD) Non-Af Amer 59 mL/min Low >60 [facility] Comment on above: Non- GFR Calc GFR/1.73 sq M.predicted among non-blacks MDRD (S/P/Bld) [Vol rate/Area] 59 mL/min/{1.73_m2} Low >60 [facility] Comment on above: Non- GFR Calc Glucose measurementOrdered B y: Jairon Medel on 02-28-2024 Glucose [Mass/Vol] 93 mg/dL 74-106 [facility] Hematocrit Auto (Bld) [Volum e fraction]Ordered By: Poojasreekanthmahadmakenzie Torojenifersophia on 02-28-2024 Hematocrit (Bld) [Volume fraction] 32.1 % Low 37-47 [facility] Hemoglobin measurementOrdere d By: Poojasreekanthmahadmakenzie Torojenifersophia on 02-28-2024 Hemoglobin (Bld) [Mass/Vol] 9.9 g/dL Low 12.0-15.0 [facility] High density lipoprotein (HD L) measurementOrdered By: Jairon Medel on 02-28-2024 Cholesterol in HDL [Mass/Vol] 58 mg/dL >40 [facility] Comment on above: The drugs N-Acetylcy steine and Metamizole may falsely depress this assay. Reference Range HDL <40 mg/dL Low HDL Cholesterol HDL >or= 60 mg/dL High HDL Cholesterol Immature granulocytes/100 WB C Auto (Bld)Ordered By: Jairon Medel on 02-28-2024 Immature granulocytes/100 WBC (Bld) 0.300 % 0.0-0.9 [facility] Comment on above: IG% - Immature Granu locytes (promyelocytes, myelocytes and metamyelocytes) > 1% indicates that a LEFT SHIFT is Present. Laboratory - Chemistry and C hemistry - challengeOrdered By: Poojamargarette Medel on 02-28-2024 AST [Catalytic activity/Vol] 15 U/L 15-37 [facility] Low density lipoprotein (LDL ) cholesterol measurementOrdered By: Jairon Torojenifersophia on 02-28-2024 Cholesterol in LDL [Mass/Vol] 67 mg/dL 0-130 [facility] Lymphocytes Auto (Unsp spec) [#/Vol]Ordered By: Poojamargarette Torojenifersophia on 02-28-2024 Lymphocytes (Bld) [#/Vol] 1.75 10*3/uL 0.83-4.51 [facility] Lymphocytes/100 WBC Auto (Un sp spec)Ordered By: Jairon Medel on 02-28-2024 Lymphocytes/100 WBC (Bld) 27.3 % 19-41 [facility] MCV (mean corpuscular volume ) determinationOrdered By: Jairon Medel on 02-28-2024 MCV (RBC) [Entitic vol] 89.4 fL 81-99 [facility] Mean corpuscular hemoglobin (MCH) determinationOrdered By: Jairon Medel on 02-28-2024 MCH (RBC) [Entitic mass] 27.6 pg 27.0-32.0 [facility] Mean corpuscular hemoglobin concentration (MCHC) determinationOrdered By: Jairon Medel on 02-28-2024 MCHC (RBC) [Mass/Vol] 30.8 g/dL Low 32-36 [facility] Mean platelet volume determi nationOrdered By: Jairon Medel on 02-28-2024 Platelet mean volume (Bld) [Entitic vol] 9.6 fL 6.2-12.0 [facility] Monocyte percentageOrdered B y: Jairon Medel on 02-28-2024 Monocytes/100 WBC (Bld) 8.7 % 0-10 [facility] Neutrophil percentageOrdered By: Jairon Medel on 02-28-2024 Neutrophils/100 WBC (Bld) 60.6 % 47-70 [facility] Nucleated red blood cell per centageOrdered By: Jairon Medel on 02-28-2024 Nucleated RBC/100 WBC (Bld) [Ratio] 0 % 0-5 [facility] Platelet countOrdered By: Pooja Medel on 02-28-2024 Platelets (Bld) [#/Vol] 261 10*3/uL 150-450 [facility] Potassium measurementOrdered By: Jairon Medel on 02-28-2024 Potassium [Moles/Vol] 4.1 mmol/L 3.5-5.1 [facility] RBC Auto (Bld) [#/Vol]Ordere d By: Jairon Medel on 02-28-2024 RBC (Bld) [#/Vol] 3.59 10*6/uL Low 4.2-5.4 [facility] Serum anion gap measurementO rdered By: Jairon Medel on 02-28-2024 Anion gap [Moles/Vol] 4 mmol/L Low 5-15 [facility] Serum globulin measurementOr dered By: Jairon Medel on 02-28-2024 Globulin (S) [Mass/Vol] 2.9 g/dL 2.2-4.2 [facility] Serum or plasma alanine crane otransferase (ALT) measurementOrdered By: Jairon Medel on 02-28-2024 ALT [Catalytic activity/Vol] 17 U/L 13-56 [facility] Serum or plasma albumin krissy urement (mass/volume)Ordered By: Jairon Medel on 02-28-2024 Albumin [Mass/Vol] 2.8 g/dL Low 3.2-5.0 [facility] Serum or plasma alkaline luis sphatase measurementOrdered By: Jairon Medel on 02-28-2024 ALP [Catalytic activity/Vol] 63 U/L 45-117 [facility] Serum or plasma calcium krissy urement (mass/volume)Ordered By: Jairon Medel on 02-28-2024 Calcium [Mass/Vol] 9.6 mg/dL 8.5-10.1 [facility] Serum or plasma cholesterol measurement (mass/volume)Ordered By: Jairon Medel on 02-28-2024 Cholesterol [Mass/Vol] 134 mg/dL <200 [facility] Comment on above: <200 mg/dL Desirable 200-240 mg/dL Borderline >240 mg/dL High Risk Serum or plasma creatinine m easurement (mass/volume)Ordered By: Jairon Medel on 02-28-2024 Creatinine [Mass/Vol] 0.95 mg/dL 0.55-1.02 [facility] Comment on above: The validity of the calculated GFR & GFRAA in patients over 70 years has not been determined. Clinical correlation is essential. Serum or plasma urea nitroge n measurement (mass/volume)Ordered By: Jairon Medel on 02-28-2024 Urea nitrogen [Mass/Vol] 23 mg/dL High 7-18 [facility] Sodium levelOrdered By: Carrillo Medel on 02-28-2024 Sodium [Moles/Vol] 143 mmol/L 136-145 [facility] Total proteinOrdered By: Masoud rosales Cortezdorcas on 02-28-2024 Protein [Mass/Vol] 5.7 g/dL Low 6.4-8.2 [facility] Triglycerides measurementOrd ered By: Jairon Cortezdorcas on 02-28-2024 Triglyceride [Mass/Vol] 43 mg/dL <199 [facility] Comment on above: The drugs N-Acetylcy steine and Metamizole may falsely depress this assay.Serum Triglycerides Reference Interval Normal <150 mg/dL Borderline high 150 - 199 mg/dL High 200 - 499 mg/dL Very High > or = 500 mg/dL Valproate levelOrdered By: Sophia claudia Gianfranco on 02-28-2024 Valproic Acid (Depakene) Level 26 ug/mL Low 50-100 [facility] Very low density lipoprotein (VLDL) cholesterol measurementOrdered By: Jairon Cortezjenifersophia on 02-28-2024 Very low density lipoprotein (VLDL) cholesterol measurement 9 mg/dL 5-40 [facility] VLDL Cholesterol 9 mg/dL 5-40 [facility] White blood cell (WBC) count Ordered By: Jairon Gianfranco on 02-28-2024 WBC (Bld) [#/Vol] 6.4 10*3/uL 4.4-11.0 [facility] .Auto Diffon 02-10-2024 Basophil, Absolute 0.1 10 3/mcL Normal 0.0-0.2 [facility] Comment on above: Performed By: #### B MP, MG, ANEU, ADIFF, CBC, GFR ####[place] [address] [place], [place] [address] Basophils/100 WBC (Bld) 1.1 % Normal 0.0-2.5 [facility] Comment on above: Performed By: #### B MP, MG, ANEU, ADIFF, CBC, GFR ####[address] [place], [place] [address] Eosinophil, Absolute 0.1 10 3/mcL Normal 0.0-0.7 [facility] Comment on above: Performed By: #### B MP, MG, ANEU, ADIFF, CBC, GFR ####[place] [address] [address] Eosinophils/100 WBC (Bld) 1.8 % Normal 0.0-7.0 [facility] Comment on above: Performed By: #### B MP, MG, ANEU, ADIFF, CBC, GFR ####[place] [address] [place], [place] [address] Lymphocyte, Absolute 1.4 10 3/mcL Normal 0.9-4.3 [facility] Comment on above: Performed By: #### B MP, MG, ANEU, ADIFF, CBC, GFR ####[address] [place], [place] [address] Lymphocytes/100 WBC (Bld) 25.4 % Normal 20.0-40.0 [facility] Comment on above: Performed By: #### B MP, MG, ANEU, ADIFF, CBC, GFR ####[place] [address] [address] Monocyte, Absolute 0.4 10 3/mcL Normal 0.1-1.4 [facility] Comment on above: Performed By: #### B MP, MG, ANEU, ADIFF, CBC, GFR ####[address] [place], [place] [address] Monocytes/100 WBC (Bld) 7.4 % Normal 2.0-13.0 [facility] Comment on above: Performed By: #### B MP, MG, ANEU, ADIFF, CBC, GFR ####[place] [address] [place], [place] [address] Neutrophils/100 WBC (Bld) 64.3 % Normal 50.0-75.0 [facility] Comment on above: Performed By: #### B MP, MG, ANEU, ADIFF, CBC, GFR ####[place] [address] [place], [place] [address] .GFRon 02-10-2024 GFR 73 ml/min/1.73sqm Normal [facility] Comment on above: Result Comment: GFR [...] B MP, MG, ANEU, ADIFF, CBC, GFR ####[facility] [place], [place] [address] GFR Non- 60 ml/min/1.73sqm Normal [facility] Comment on above: Result Comment: GFR [...] B MP, MG, ANEU, ADIFF, CBC, GFR ####[facility] [place], [place] [address] .NEUABSon 02-10-2024 Neutrophil, Absolute 3.7 10 3/mcL Normal 2.3-8.1 [facility] Comment on above: Performed By: #### B MP, MG, ANEU, ADIFF, CBC, GFR ####[place] [address] [place], [place] [address] BMPon 02-10-2024 BUN/Creatinine Ratio 25 ratio Normal 7-27 [facility] Comment on above: Performed By: #### B MP, MG, ANEU, ADIFF, CBC, GFR ####[place] [address] [address] Calcium [Mass/Vol] 10.0 mg/dL Normal 8.4-10.2 [facility] Comment on above: Performed By: #### B MP, MG, ANEU, ADIFF, CBC, GFR ####[place] [address] [address] Chloride [Moles/Vol] 107 mmol/L Normal 98-107 [facility] Comment on above: Performed By: #### B MP, MG, ANEU, ADIFF, CBC, GFR ####[place] [address] [address] CO2 [Moles/Vol] 30 mmol/L Normal 23-31 [facility] Comment on above: Performed By: #### B MP, MG, ANEU, ADIFF, CBC, GFR ####[place] [address] [address] Creatinine [Mass/Vol] 0.89 mg/dL Normal 0.55-1.02 [facility] Comment on above: Result Comment: Test ing performed on Siemens Dimension EXL analyzer using a modified kinetic Dora technique. Performed By: #### B MP, MG, ANEU, ADIFF, CBC, GFR ####[place] [address] [address] Electrolyte Balance 8.0 mEq/L Normal 4.0-15.[address] [facility] Comment on above: Performed By: #### B MP, MG, ANEU, ADIFF, CBC, GFR ####[place] [address] [address] Glucose [Mass/Vol] 111 mg/dL High 83-110 [facility] Comment on above: Performed By: #### B MP, MG, ANEU, ADIFF, CBC, GFR ####[place] [address] [address] Potassium [Moles/Vol] 4.0 mmol/L Normal 3.5-5.1 [facility] Comment on above: Performed By: #### B MP, MG, ANEU, ADIFF, CBC, GFR ####[place] [address] [place], [place] [address] Sodium [Moles/Vol] 145 mmol/L Normal 136-145 [facility] Comment on above: Performed By: #### B MP, MG, ANEU, ADIFF, CBC, GFR ####[place] [address] [place], [place] [address] Urea nitrogen [Mass/Vol] 22 mg/dL High 7-18 [facility] Comment on above: Performed By: #### B MP, MG, ANEU, ADIFF, CBC, GFR ####[place] [address] [place], [place] [address] CBCon 02-10-2024 Erythrocyte distribution width (RBC) [Ratio] 14.1 % Normal 11.5-15.5 [facility] Comment on above: Performed By: #### B MP, MG, ANEU, ADIFF, CBC, GFR ####[place] [address] [address] Hematocrit (Bld) [Volume fraction] 33.2 % Low 34.0-46.0 [facility] Comment on above: Performed By: #### B MP, MG, ANEU, ADIFF, CBC, GFR ####[place] [address] [place], [place] [address] Hgb 11.3 G/dL Low 12.0-16.0 [facility] Comment on above: Performed By: #### B MP, MG, ANEU, ADIFF, CBC, GFR ####[place] [address] [address] MCH (RBC) [Entitic mass] 28.8 pg Normal 27.0-33.0 [facility] Comment on above: Performed By: #### B MP, MG, ANEU, ADIFF, CBC, GFR ####[place] [address] [place], [place] [address] MCHC 34.1 G/dL Normal 32.0-36.0 [facility] Comment on above: Performed By: #### B MP, MG, ANEU, ADIFF, CBC, GFR ####[facility] [place], [place] [address] MCV (RBC) [Entitic vol] 84.5 fL Normal 80.0-99.0 [facility] Comment on above: Performed By: #### B MP, MG, ANEU, ADIFF, CBC, GFR ####[address] [place] [id number] Platelet 272 10 3/mcL Normal 150-450 [facility] Comment on above: Performed By: #### B MP, MG, ANEU, ADIFF, CBC, GFR ####[place] [place] [place] [id number] Platelet mean volume (Bld) [Entitic vol] 7.7 fL Normal 6.6-10.5 [facility] Comment on above: Performed By: #### B MP, MG, ANEU, ADIFF, CBC, GFR ####[address] [place] [address] RBC 3.93 10 6/mcL Low 4.10-5.30 [facility] Comment on above: Performed By: #### B MP, MG, ANEU, ADIFF, CBC, GFR ####[address] [place] [id number] WBC 5.7 10 3/mcL Normal 4.5-10.8 [facility] Comment on above: Performed By: #### B MP, MG, ANEU, ADIFF, CBC, GFR ####[address] [place] [place], [place] [address] LABORATORYOrdered By: SYSTEM SYSTEM on 02-10-2024 Basophils [...] 02-10-2024 Magnesium [Mass/Vol] 1.7 mg/dL Low 1.8-2.4 [facility] Comment on above: Performed By: #### B MP, MG, ANEU, ADIFF, CBC, GFR ####[place] [address] [place], [place] [address] .Auto Diffon 02-09-2024 Basophil, Absolute 0.1 10 3/mcL Normal 0.0-0.2 [facility] Comment on above: Performed By: #### B MP, MDW, GFR, ANEU, TROPHS, PBNP, CBC, ADIFF ####[place] [address] [address] Basophils/100 WBC (Bld) 1.1 % Normal 0.0-2.5 [facility] Comment on above: Performed By: #### B MP, MDW, GFR, ANEU, TROPHS, PBNP, CBC, ADIFF ####[place] [address] [place], [place] [address] Eosinophil, Absolute 0.1 10 3/mcL Normal 0.0-0.7 [facility] Comment on above: Performed By: #### B MP, MDW, GFR, ANEU, TROPHS, PBNP, CBC, ADIFF ####[place] [address] [place], [place] [address] Eosinophils/100 WBC (Bld) 1.6 % Normal 0.0-7.0 [facility] Comment on above: Performed By: #### B MP, MDW, GFR, ANEU, TROPHS, PBNP, CBC, ADIFF ####[place] [address] [place], [place] [address] Lymphocyte, Absolute 2.2 10 3/mcL Normal 0.9-4.3 [facility] Comment on above: Performed By: #### B NAFISA MCHUGH, GFR, ANEU, TROPHS, PBNP, CBC, ADIFF ####[place] [address] [place], [place] [address] Lymphocytes/100 WBC (Bld) 29.4 % Normal 20.0-40.0 [facility] Comment on above: Performed By: #### B NAFISA MCHUGH, GFR, ANEU, TROPHS, PBNP, CBC, ADIFF ####[place] [address] [place], [place] [address] Monocyte, Absolute 0.7 10 3/mcL Normal 0.1-1.4 [facility] Comment on above: Performed By: #### B NAFISA MCHUGH, GFR, ANEU, TROPHS, PBNP, CBC, ADIFF ####[place] [address] [place], [place] [address] Monocytes/100 WBC (Bld) 9.6 % Normal 2.0-13.0 [facility] Comment on above: Performed By: #### B NAFISA MCHUGH, GFR, ANEU, TROPHS, PBNP, CBC, ADIFF ####[place] [address] [place], [place] [address] Neutrophils/100 WBC (Bld) 58.3 % Normal 50.0-75.0 [facility] Comment on above: Performed By: #### B NAFISA MCHUGH, GFR, ANEU, TROPHS, PBNP, CBC, ADIFF ####[place] [address] [place], [place] [address] .GFRon 02-09-2024 GFR 67 ml/min/1.73sqm Normal [facility] Comment on above: Result Comment: GFR [...] MDW, GFR, ANEU, TROPHS, PBNP, CBC, ADIFF ####[place] [address] [place], [place] [address] GFR Non- 55 ml/min/1.73sqm Normal [facility] Comment on above: Result Comment: GFR [...] MDW, GFR, ANEU, TROPHS, PBNP, CBC, ADIFF ####[facility] [place], [place] [address] .MDWon 02-09-2024 Monocyte Distribution Width 17.09 Normal 0.00-20.00 [facility] Comment on above: Result Comment: For ED adult patients suspected of sepsis, MDW<=20.0 does not rule out sepsis or risk of sepsis Performed By: #### B MP, MDW, GFR, ANEU, TROPHS, PBNP, CBC, ADIFF ####[facility] [place], [place] [address] .NEUABSon 02-09-2024 Neutrophil, Absolute 4.4 10 3/mcL Normal 2.3-8.1 [facility] Comment on above: Performed By: #### B NAFISA MCHUGH, GFR, ANEU, TROPHS, PBNP, CBC, ADIFF ####[facility] [place], [place] [address] BMPon 02-09-2024 BUN/Creatinine Ratio 26 ratio Normal 7-27 [facility] Comment on above: Performed By: #### B JEISON, NAFISA, GFR, ANEU, TROPHS, PBNP, CBC, ADIFF ####[address] [address] Calcium [Mass/Vol] 10.4 mg/dL High 8.4-10.2 [facility] Comment on above: Performed By: #### B NAFISA MCHUGH, GFR, ANEU, TROPHS, PBNP, CBC, ADIFF ####[place] [address] [place], [place] [address] Chloride [Moles/Vol] 104 mmol/L Normal 98-107 [facility] Comment on above: Performed By: #### B NAFISA MCHUGH, GFR, ANEU, TROPHS, PBNP, CBC, ADIFF ####[address] [address] CO2 [Moles/Vol] 30 mmol/L Normal 23-31 [facility] Comment on above: Performed By: #### B NAFISA MCHUGH, GFR, ANEU, TROPHS, PBNP, CBC, ADIFF ####[address] [address] Creatinine [Mass/Vol] 0.96 mg/dL Normal 0.55-1.02 [facility] Comment on above: Result Comment: Test ing performed on Siemens Dimension EXL analyzer using a modified kinetic Dora technique. Performed By: #### B NAFISA MCHUGH, GFR, ANEU, TROPHS, PBNP, CBC, ADIFF ####[place] [address] [place], [place] [address] Electrolyte Balance 10.0 mEq/L Normal 4.0-15.[address] [facility] Comment on above: Performed By: #### B NAFISA MCHUGH, GFR, ANEU, TROPHS, PBNP, CBC, ADIFF ####[place] [address] [place], [place] [address] Glucose [Mass/Vol] 108 mg/dL Normal 83-110 [facility] Comment on above: Performed By: #### B NAFISA MCHUGH, GFR, ANEU, TROPHS, PBNP, CBC, ADIFF ####[place] [address] [place], [place] [address] Potassium [Moles/Vol] 3.6 mmol/L Normal 3.5-5.1 [facility] Comment on above: Performed By: #### B NAFISA MCHUGH, GFR, ANEU, TROPHS, PBNP, CBC, ADIFF ####[place] [address] [place], [place] [address] Sodium [Moles/Vol] 144 mmol/L Normal 136-145 [facility] Comment on above: Performed By: #### B NAFISA MCHUGH, GFR, ANEU, TROPHS, PBNP, CBC, ADIFF ####[place] [address] [place], [place] [address] Urea nitrogen [Mass/Vol] 25 mg/dL High 7-18 [facility] Comment on above: Performed By: #### B NAFISA MCHUGH, GFR, ANEU, TROPHS, PBNP, CBC, ADIFF ####[place] [address] [place], [place] [address] CBCon 02-09-2024 Erythrocyte distribution width (RBC) [Ratio] 14.0 % Normal 11.5-15.5 [facility] Comment on above: Performed By: #### B NAFISA MCHUGH, GFR, ANEU, TROPHS, PBNP, CBC, ADIFF ####[place] [address] [place], [place] [address] Hematocrit (Bld) [Volume fraction] 34.7 % Normal 34.0-46.0 [facility] Comment on above: Performed By: #### B NAFISA MCHUGH, GFR, ANEU, TROPHS, PBNP, CBC, ADIFF ####[place] [address] [place], [place] [address] Hgb 11.7 G/dL Low 12.0-16.0 [facility] Comment on above: Performed By: #### B NAFISA MCHUGH, GFR, ANEU, TROPHS, PBNP, CBC, ADIFF ####[place] [address] [place], [place] [address] MCH (RBC) [Entitic mass] 28.7 pg Normal 27.0-33.0 [facility] Comment on above: Performed By: #### B JEISON, NAFISA, GFR, ANEU, TROPHS, PBNP, CBC, ADIFF ####[place] [address] [place], [place] [address] MCHC 33.7 G/dL Normal 32.0-36.0 [facility] Comment on above: Performed By: #### B NAFISA MCHUGH, GFR, ANEU, TROPHS, PBNP, CBC, ADIFF ####[place] [address] [place], [place] [address] MCV (RBC) [Entitic vol] 85.0 fL Normal 80.0-99.0 [facility] Comment on above: Performed By: #### B NAFISA MCHUGH, GFR, ANEU, TROPHS, PBNP, CBC, ADIFF ####[place] [address] [place], [place] [address] Platelet 266 10 3/mcL Normal 150-450 [facility] Comment on above: Performed By: #### B NAFISA MCHUGH, GFR, ANEU, TROPHS, PBNP, CBC, ADIFF ####[place] [address] [place], [place] [address] Platelet mean volume (Bld) [Entitic vol] 7.4 fL Normal 6.6-10.5 [facility] Comment on above: Performed By: #### B NAFISA MCHUGH, GFR, ANEU, TROPHS, PBNP, CBC, ADIFF ####[id number] [place], [place] [address] RBC 4.08 10 6/mcL Low 4.10-5.30 [facility] Comment on above: Performed By: #### B NAFISA MCHUGH, GFR, ANEU, TROPHS, PBNP, CBC, ADIFF ####[id number] [place], [place] [address] WBC 7.6 10 3/mcL Normal 4.5-10.8 [facility] Comment on above: Performed By: #### B MP, NAFISA, GFR, ANEU, TROPHS, PBNP, CBC, ADIFF ####[id number] [place], [place] [address] LABORATORYOrdered By: Addis Pelayo on 02-09-2024 Appearance [...] ng/L Male: 0-76 ng/L Testing performed on [employer] using a homogeneous sandwich chemiluminescent immunoassay based on [employer] technology. Urea nitrogen [Mass/Vol] 25 mg/dL High 7 - 18 mg/dL AO ADM SS Urea nitrogen/Creatinine [Mass ratio] 26 ratio Normal 7 - 27 ratio AO ADM SS WBC (Bld) [#/Vol] 7.6 103/mcL Normal 4.5 - 10.8 10^3/mcL AO Workflow SS PBNPon 02-09-2024 Natriuretic peptide B (Bld) [Mass/Vol] 3243 pg/mL High 0-450 [facility] Comment on above: Result Comment: NT-p roBNP results of less than 300 pg/mL effectively rules out acute congestive heart failure with 99% negative predictive value. Performed By: #### B MP, NAFISA, GFR, ANEU, TROPHS, PBNP, CBC, ADIFF ####[facility] [place], [place] [address] TROPHSon 02-09-2024 High Sensitivity Troponin I 23 ng/L Normal 0-51 [facility] Comment on above: Result Comment: High Sensitive Troponin I Reference Ranges: Female: 0-51 ng/L Male: 0-76 ng/L Testing performed on [employer] using a homogeneous sandwich chemiluminescent immunoassay based on KitBoost technology. Performed By: #### B MP, MDW, GFR, ANEU, TROPHS, PBNP, CBC, ADIFF ####Jerrell [address] [place], [place] [address] UAon 02-09-2024 Color (U) Yellow Normal [facility] Comment on above: Performed By: #### U A ####Jerrell Bgueuosm[address] [place] [address] Glucose (U) [Mass/Vol] Negative Normal Negative [facility] Comment on above: Performed By: #### U A ####Jerrellvince LalaJzfxubri[address] [place] [address] Ketones Ql (U) Negative Normal Negative [facility] Comment on above: Performed By: #### U A ####[place] [address] [place] [address] UA Appear Clear Normal Clear [facility] Comment on above: Performed By: #### U A ####[place] [address]eb[address] [place] [address] UA Blood Negative Normal Negative [facility] Comment on above: Performed By: #### U A ####[place] D[address] [place], [place] [address] UA Leuk Est Negative Normal Negative [facility] Comment on above: Performed By: #### U A ####Jerrell Uvaxpznz[address] [place] [address] UA Nitrite Negative Normal Negative [facility] Comment on above: Performed By: #### U A ####Jerrell Wtybkfxr[address] [place] [address] UA pH 6.5 Normal 5.0 - 8.0 [facility] Comment on above: Performed By: #### U A ####Jerrell [address] [place] [address] UA Protein Negative Normal Negative [facility] Comment on above: Performed By: #### U A ####[place] Iout[address]fkx[address] [place], [place] [address] UA Spec Grav 1.015 Normal 1.015-1.025 [facility] Comment on above: Performed By: #### U A ####[place] [address]emjt[address] [place] [address] UA Specimen Type Void Normal [facility] Comment on above: Performed By: #### U A ####[place] Jzivttct[address] [place] [address] UA Urobilinogen 0.2 E.U./dL Normal 0.2-1.0 [facility] Comment on above: Performed By: #### U A ####[place] Smpjpqxr[address] [place] [address] Urobilinogen (U) [Mass/Vol] Negative Normal Negative [facility] Comment on above: Performed By: #### U A ####[facility] [place] [address] VALPRon 02-09-2024 LDose Valproic Acid: Unknown Normal [facility] Comment on above: Performed By: #### V ALPR ####[place] [address] [place] [address] Valproic Acid Lvl 30 mcg/mL Low 50-100 [facility] Comment on above: Performed By: #### V ALPR ####[facility] [place] [address] XR CHEST 1 VIEWon 02-09-2024 XR CHEST [...] 02/09/2024 9:08:10 PM Ordering Provider: TRIXIE BARONE [facility] .Urinalysis Microscopic (AO) on 01-21-2024 UA Amorphus 1+ /hpf Normal [facility] Comment on above: Performed By: #### U A, UAMICAO ####[place] [address]ghqke[address] [place] [address] UA CA Ox Crystal 1+ /hpf Normal [facility] Comment on above: Performed By: #### U A, UAMICAO ####Jer[place] Cvblrccm[address] [place] [address] UA Mucous 2+ /hpf Normal [facility] Comment on above: Performed By: #### U A, UAMICAO ####[place] Pekvedxm[address] [place] [address] UA RBC 0-5 Abnormal None Seen [facility] Comment on above: Performed By: #### U A, UAMICAO ####Jer[place] Ibblpdhf[address] [place] [address] UA Squam Epithelial 0-5 Abnormal None Seen [facility] Comment on above: Performed By: #### U A, UAMICAO ####[facility] [place] [address] UA WBC 0-5 Abnormal None Seen [facility] Comment on above: Performed By: #### U A, UAMICAO ####[facility] [place] [address] LABORATORYOrdered By: Mao Nava on 01-21-2024 Appearance [...] SS UAon 01-21-2024 Color (U) Yellow Normal [facility] Comment on above: Performed By: #### U A, UAMICAO ####[facility] [place], [place] [address] Glucose (U) [Mass/Vol] Negative Normal Negative [facility] Comment on above: Performed By: #### U A, UAMICAO ####[facility] [place], [place] [address] Ketones Ql (U) Negative Normal Negative [facility] Comment on above: Performed By: #### U A, UAMICAO ####[facility] [place], [place] [address] UA Appear Clear Normal Clear [facility] Comment on above: Performed By: #### U A, UAMICAO ####[place] [address] [place], [place] [address] UA Blood Negative Normal Negative [facility] Comment on above: Performed By: #### U A, UAMICAO ####Jer[place] [address] [place] [address] UA Leuk Est Negative Normal Negative [facility] Comment on above: Performed By: #### U A, UAMICAO ####[place] [place] [address] UA Nitrite Negative Normal Negative [facility] Comment on above: Performed By: #### U A, UAMICAO ####[place] [place] [address] UA pH 6.0 Normal 5.0 - 8.0 [facility] Comment on above: Performed By: #### U A, UAMICAO ####[place] [address] [address] UA Protein 30 mg/dL Normal Negative [facility] Comment on above: Performed By: #### U A, UAMICAO ####[place] [address] [address] UA Spec Grav 1.020 Normal 1.015-1.025 [facility] Comment on above: Performed By: #### U A, UAMICAO ####[place] Nesznzzd[address] [place] [address] UA Specimen Type Hua Catheter Normal [facility] Comment on above: Performed By: #### U A, UAMICAO ####[place] [place] [address] UA Urobilinogen 0.2 E.U./dL Normal 0.2-1.0 [facility] Comment on above: Performed By: #### U A, UAMICAO ####[place] [place] [address] Urobilinogen (U) [Mass/Vol] Negative Normal Negative [facility] Comment on above: Performed By: #### U A, KRISHNA ####Jerrell [address] [place], [place] [address] US BLADDERon 01-07-2024 US BLADDER ORIGINAL EXAMINATION: [...] 01/07/2024 11:24:46 AM Ordering Provider: LARRY Geronimo [facility] .GFRon 12-29-2023 GFR 54 ml/min/1.73sqm [facility] Comment on above: Result Comment: GFR [...] Performed By: #### G FR, LINDA, JANIA ####[place] [address] [place], [place] [address] GFR Non- 44 ml/min/1.73sqm [facility] Comment on above: Result Comment: GFR [...] By: #### LINDA SOLIS CAION ####[place] [place], [place] [address] BMPon 12-29-2023 BUN/Creatinine Ratio 20 ratio Normal 7-27 [facility] Comment on above: Performed By: #### LINDA SOLIS CAION ####[place] [place], [place] [address] Calcium [Mass/Vol] 10.3 mg/dL High 8.4-10.2 [facility] [place] Comment on above: Performed By: #### LINDA SOLIS CAION ####Jerrell [address] [address] Chloride [Moles/Vol] 104 mmol/L Normal 98-107 [facility] Comment on above: Performed By: #### LINDA SOLIS CAION ####[place] [place], [place] [address] CO2 [Moles/Vol] 31 mmol/L Normal 23-31 [facility] Comment on above: Performed By: #### LINDA SOLIS CAION ####[place] [place], [place] [address] Creatinine [Mass/Vol] 1.16 mg/dL High 0.55-1.02 [facility] Comment on above: Result Comment: Test ing performed on Siemens Dimension EXL analyzer using a modified kinetic Dora technique. Performed By: #### LINDA SOLIS CAION ####[place] [place], [place] [address] Electrolyte Balance 7.0 mEq/L Normal 4.0-15.[address] [facility] Comment on above: Performed By: #### LINDA SOLIS, CAION ####[place] [place], [place] [address] Glucose [Mass/Vol] 92 mg/dL Normal 83-110 [facility] [place] Comment on above: Performed By: #### G LINDA SPAULDING, CAION ####[place] [place], [place] [address] Potassium [Moles/Vol] 4.2 mmol/L Normal 3.5-5.1 [facility] Comment on above: Performed By: #### LINDA SOLIS, CAION ####[place] [place], [place] [address] Sodium [Moles/Vol] 142 mmol/L Normal 136-145 [facility] [place] Comment on above: Performed By: #### LINDA SOLIS, CAION ####Jerrell [address] [place], [place] [address] Urea nitrogen [Mass/Vol] 23 mg/dL High 7-18 [facility] Comment on above: Performed By: #### G LINDA SPAULDING, CAION ####[place] [place], [place] [address] CAIONo 12-29-2023 Calcium Ionized 1.27 mmol/L Normal 1.12-1.32 [facility] Comment on above: Performed By: #### LINDA SOLIS, CAION ####[place] [place], [place] [address] LABORATORYOrdered By: SYSTEM SYSTEM on 12-29-2023 Calcium [...] ratio AO ADM SS LABORATORYOrdered By: Darshana netta Stephon on 12-29-2023 Calcium Ionized 1.27 mmol/L Normal [...] 12/21/2023 4:21:17 PM Ordering Provider: LARRY Geronimo [facility] XR SPINE LUMBAR W/OBLIQUES 4 VIEWSon [...] 12/21/2023 4:34:05 PM Ordering Provider: LARRY Geronimo [facility] B12on 12-16-2023 Cobalamin (Vitamin B12) [Mass/Vol] 509 pg/mL Normal 211-911 [facility] Comment on above: Performed By: #### F ES, FERR ####[address] [address]#### B12, FOL ####[place] [address] FOLon 12-16-2023 Folate >48.00 High 5.38-24.00 [facility] Comment on above: Performed By: #### F ES, FERR ####[address] [address]#### B12, FOL ####[place] [address] .Auto Diffon 12-15-2023 Basophil, Absolute 0.1 10 3/mcL Normal 0.0-0.2 [facility] Comment on above: Performed By: #### C MP, ADIFF, CBC, GFR, PBNP, ANEU #### [address] [address] Basophils/100 WBC (Bld) 1.1 % Normal 0.0-2.5 [facility] Comment on above: Performed By: #### C MP, ADIFF, CBC, GFR, PBNP, ANEU #### [address] [address] Eosinophil, Absolute 0.1 10 3/mcL Normal 0.0-0.7 [facility] Comment on above: Performed By: #### C MP, ADIFF, CBC, GFR, PBNP, ANEU #### [address] [address] Eosinophils/100 WBC (Bld) 1.4 % Normal 0.0-7.0 [facility] Comment on above: Performed By: #### C MP, ADIFF, CBC, GFR, PBNP, ANEU #### [address] [address] Lymphocyte, Absolute 1.7 10 3/mcL Normal 0.9-4.3 [facility] Comment on above: Performed By: #### C MP, ADIFF, CBC, GFR, PBNP, ANEU #### [address] [address] Lymphocytes/100 WBC (Bld) 20.9 % Normal 20.0-40.0 [facility] Comment on above: Performed By: #### C MP, ADIFF, CBC, GFR, PBNP, ANEU #### [address] [address] Monocyte, Absolute 0.5 10 3/mcL Normal 0.1-1.4 [facility] Comment on above: Performed By: #### C MP, ADIFF, CBC, GFR, PBNP, ANEU #### [address] [address] Monocytes/100 WBC (Bld) 6.0 % Normal 2.0-13.0 [facility] Comment on above: Performed By: #### C MP, ADIFF, CBC, GFR, PBNP, ANEU #### [address] [address] Neutrophils/100 WBC (Bld) 70.6 % Normal 50.0-75.0 [facility] Comment on above: Performed By: #### C MP, ADIFF, CBC, GFR, PBNP, ANEU #### [address] [address] .GFRon 12-15-2023 GFR 62 ml/min/1.73sqm Normal [facility] Comment on above: Result Comment: GFR [...] MP, ADIFF, CBC, GFR, PBNP, ANEU #### [address] [address] GFR Non- 52 ml/min/1.73sqm Normal [facility] Comment on above: Result Comment: GFR [...] MP, ADIFF, CBC, GFR, PBNP, ANEU #### [address] [address] .NEUABSon 12-15-2023 Neutrophil, Absolute 5.8 10 3/mcL Normal 2.3-8.1 [facility] Comment on above: Performed By: #### C MP, ADIFF, CBC, GFR, PBNP, ANEU #### [address] [address] CBCon 12-15-2023 Erythrocyte distribution width (RBC) [Ratio] 14.2 % Normal 11.5-15.5 [facility] Comment on above: Performed By: #### C MP, ADIFF, CBC, GFR, PBNP, ANEU #### [place] [address] Hematocrit (Bld) [Volume fraction] 34.6 % Normal 34.0-46.0 [facility] Comment on above: Performed By: #### C MP, ADIFF, CBC, GFR, PBNP, ANEU #### [place] [address] Hgb 11.7 G/dL Low 12.0-16.0 [facility] Comment on above: Performed By: #### C MP, ADIFF, CBC, GFR, PBNP, ANEU #### [place] [address] MCH (RBC) [Entitic mass] 28.7 pg Normal 27.0-33.0 [facility] Comment on above: Performed By: #### C MP, ADIFF, CBC, GFR, PBNP, ANEU #### [place] [address] MCHC 33.9 G/dL Normal 32.0-36.0 [facility] Comment on above: Performed By: #### C MP, ADIFF, CBC, GFR, PBNP, ANEU #### [place] [address] MCV (RBC) [Entitic vol] 84.8 fL Normal 80.0-99.0 [facility] Comment on above: Performed By: #### C MP, ADIFF, CBC, GFR, PBNP, ANEU #### [place] [id number] Platelet 363 10 3/mcL Normal 150-450 [facility] Comment on above: Performed By: #### C MP, ADIFF, CBC, GFR, PBNP, ANEU #### [place] [address] Platelet mean volume (Bld) [Entitic vol] 7.4 fL Normal 6.6-10.5 [facility] Comment on above: Performed By: #### C MP, ADIFF, CBC, GFR, PBNP, ANEU #### [place] [address] RBC 4.08 10 6/mcL Low 4.10-5.30 [facility] Comment on above: Performed By: #### C MP, ADIFF, CBC, GFR, PBNP, ANEU #### [address] [address] WBC 8.3 10 3/mcL Normal 4.5-10.8 [facility] Comment on above: Performed By: #### C MP, ADIFF, CBC, GFR, PBNP, ANEU #### [address] [address] CMPon 12-15-2023 Albumin Level 3.9 G/dL Normal 3.4-4.8 [facility] Comment on above: Performed By: #### C MP, ADIFF, CBC, GFR, PBNP, ANEU #### [address] [address] Albumin/Globulin [Mass ratio] 1.4 {ratio} Normal 1.1-2.5 [facility] Comment on above: Performed By: #### C MP, ADIFF, CBC, GFR, PBNP, ANEU #### [address] [address] ALP [Catalytic activity/Vol] 72 U/L Normal 40-135 [facility] Comment on above: Performed By: #### C MP, ADIFF, CBC, GFR, PBNP, ANEU #### [address] [address] ALT [Catalytic activity/Vol] 26 U/L Normal 14-59 [facility] Comment on above: Performed By: #### C MP, ADIFF, CBC, GFR, PBNP, ANEU #### [address] [address] AST [Catalytic activity/Vol] 18 U/L Normal 10-40 [facility] Comment on above: Performed By: #### C MP, ADIFF, CBC, GFR, PBNP, ANEU #### [address] [address] Bili Total 0.4 mg/dL Normal 0.2-1.0 [facility] Comment on above: Result Comment: Use of this assay is not recommended for patients undergoing treatment with eltrombopag due to the potential for falsely elevated results. Performed By: #### C MP, ADIFF, CBC, GFR, PBNP, ANEU #### [place] [address] BUN/Creatinine Ratio 20 ratio Normal 7-27 [facility] Comment on above: Performed By: #### C MP, ADIFF, CBC, GFR, PBNP, ANEU #### [place] [address] Calcium [Mass/Vol] 10.8 mg/dL High 8.4-10.2 [facility] [place] Comment on above: Performed By: #### C MP, ADIFF, CBC, GFR, PBNP, ANEU #### [place] [address] Chloride [Moles/Vol] 104 mmol/L Normal 98-107 [facility] Comment on above: Performed By: #### C MP, ADIFF, CBC, GFR, PBNP, ANEU #### [place] [address] CO2 [Moles/Vol] 30 mmol/L Normal 23-31 [facility] Comment on above: Performed By: #### C MP, ADIFF, CBC, GFR, PBNP, ANEU #### [place] [address] Creatinine [Mass/Vol] 1.02 mg/dL Normal 0.55-1.02 [facility] Comment on above: Result Comment: Test ing performed on Siemens Dimension EXL analyzer using a modified kinetic Dora technique. Performed By: #### C MP, ADIFF, CBC, GFR, PBNP, ANEU #### [place] [address] Electrolyte Balance 7.0 mEq/L Normal 4.0-15.[address] [facility] Comment on above: Performed By: #### C MP, ADIFF, CBC, GFR, PBNP, ANEU #### Jer[place] [address] [place], [place] [address] Globulin 2.8 G/dL Normal [facility] Comment on above: Performed By: #### C MP, ADIFF, CBC, GFR, PBNP, ANEU #### [address] [address] Glucose [Mass/Vol] 105 mg/dL Normal 83-110 [facility] Comment on above: Performed By: #### C MP, ADIFF, CBC, GFR, PBNP, ANEU #### [address] [address] Potassium [Moles/Vol] 4.2 mmol/L Normal 3.5-5.1 [facility] Comment on above: Performed By: #### C MP, ADIFF, CBC, GFR, PBNP, ANEU #### [address] [address] Sodium [Moles/Vol] 141 mmol/L Normal 136-145 [facility] Comment on above: Performed By: #### C MP, ADIFF, CBC, GFR, PBNP, ANEU #### [address] [address] Total Protein 6.7 G/dL Normal 6.4-8.2 [facility] Comment on above: Performed By: #### C MP, ADIFF, CBC, GFR, PBNP, ANEU #### [address] [address] Urea nitrogen [Mass/Vol] 20 mg/dL High 7-18 [facility] Comment on above: Performed By: #### C MP, ADIFF, CBC, GFR, PBNP, ANEU #### [address] [address] Lucretia 12-15-2023 Ferritin [Mass/Vol] 197.0 ng/mL Normal 8.0-252.0 [facility] Comment on above: Performed By: #### F ES, FERR ####[address] [address]#### B12, FOL ####[place] [address] FESon 12-15-2023 Iron [Mass/Vol] 44 ug/dL Low 50-170 [facility] Comment on above: Performed By: #### F ES, FERR ####[place] [address] [place], [place] [address]#### B12, FOL ####[place] [address] [place] [address] Iron Sat 15 % Normal [facility] Comment on above: Performed By: #### F ES, FERR ####[place] [address] [place], [place] [address]#### B12, FOL ####[place] [address] TIBC 300 mcg/dL Normal 250-450 [facility] Comment on above: Performed By: #### F ES, FERR ####[place] [address]#### B12, FOL ####[place] [address] LABORATORYOrdered By: SYSTEM SYSTEM on 12-15-2023 Albumin [...] Culture Urine No growth at 48 hours. [facility] PBNPon 12-15-2023 Natriuretic peptide B (Bld) [Mass/Vol] 1968 pg/mL High 0-450 [facility] Comment on above: Result Comment: NT-p roBNP results of less than 300 pg/mL effectively rules out acute congestive heart failure with 99% negative predictive value. Performed By: #### C MP, ADIFF, CBC, GFR, PBNP, ANEU ####[facility] [place] [address] LABORATORYOrdered By: Domingo Masterson on 12-09-2023 Appearance [...] SS UAon 12-09-2023 Color (U) Yellow Normal [facility] Comment on above: Performed By: #### U A ####Jerrell [address] [place], [place] [address] Glucose (U) [Mass/Vol] Negative Normal Negative [facility] Comment on above: Performed By: #### U A ####[place] [address] [place], [place] [address] Ketones Ql (U) Negative Normal Negative [facility] Comment on above: Performed By: #### U A ####Jerrell [address] [place], [place] [address] UA Appear Clear Normal Clear [facility] Comment on above: Performed By: #### U A ####[place] [address] [place], [place] [address] UA Blood Negative Normal Negative [facility] Comment on above: Performed By: #### U A ####[place] [address] [place], [place] [address] UA Leuk Est Negative Normal Negative [facility] Comment on above: Performed By: #### U A ####[place] [address] [place] [address] UA Nitrite Negative Normal Negative [facility] Comment on above: Performed By: #### U A ####[place] [address] [place] [address] UA pH 7.5 Normal 5.0 - 8.0 [facility] Comment on above: Performed By: #### U A ####Jer[place] [address] [place] [address] UA Protein Negative Normal Negative [facility] Comment on above: Performed By: #### U A ####[place] [address] [place] [address] UA Spec Grav 1.020 Normal 1.015-1.025 [facility] Comment on above: Performed By: #### U A ####Jerrell [address] [place] [address] UA Specimen Type Clean Catch Normal [facility] Comment on above: Performed By: #### U A ####[place] [address] [place] [address] UA Urobilinogen 0.2 E.U./dL Normal 0.2-1.0 [facility] Comment on above: Performed By: #### U A ####[place] [address] [place] [address] Urobilinogen (U) [Mass/Vol] Negative Normal Negative [facility] Comment on above: Performed By: #### U A ####[facility] [place] [address] XR HIP RIGHT W/PELVIS 4 VIEW Son [...] 11/29/2023 11:51:51 AM Ordering Provider: SONNY STAHL [facility] .GFRon 07-08-2023 GFR 63 ml/min/1.73sqm Normal [facility] ([place]) Comment on above: Result Comment: GFR Population [...] FR, A1C, ANEU, CBC, ADIFF, BMP #### [address] [address] GFR Non- 52 ml/min/1.73sqm Normal [facility] ([place]) Comment on above: Result Comment: GFR Population [...] FR, A1C, ANEU, CBC, ADIFF, BMP #### [address] [address] BMPon 07-08-2023 BUN/Creatinine Ratio 19 ratio Normal 7-27 [facility] ([place]) Comment on above: Performed By: #### G FR, A1C, ANEU, CBC, ADIFF, BMP #### [address] [address] Calcium [Mass/Vol] 9.6 mg/dL Normal 8.4-10.2 [facility] ([place]) Comment on above: Performed By: #### G FR, A1C, ANEU, CBC, ADIFF, BMP #### [address] [address] Chloride [Moles/Vol] 106 mmol/L Normal 98-107 [facility] ([place]) Comment on above: Performed By: #### G FR, A1C, ANEU, CBC, ADIFF, BMP #### [address] [address] CO2 [Moles/Vol] 29 mmol/L Normal 23-31 [facility] ([place]) Comment on above: Performed By: #### G FR, A1C, ANEU, CBC, ADIFF, BMP #### [address] [address] Creatinine [Mass/Vol] 1.02 mg/dL Normal 0.55-1.02 [facility] ([place]) Comment on above: Performed By: #### G FR, A1C, ANEU, CBC, ADIFF, BMP #### [address] [address] Electrolyte Balance 9.0 mEq/L Normal 4.0-15.0 [facility] Comment on above: Performed By: #### G FR, A1C, ANEU, CBC, ADIFF, BMP #### [address] [address] Glucose [Mass/Vol] 118 mg/dL High 83-110 [facility] ([place]) Comment on above: Performed By: #### G FR, A1C, ANEU, CBC, ADIFF, BMP #### [place] [address] [place], [place] [address] Potassium [Moles/Vol] 3.7 mmol/L Normal 3.5-5.1 [facility] ([place]) Comment on above: Performed By: #### G FR, A1C, ANEU, CBC, ADIFF, BMP #### [place] [address] [place], [place] [address] Sodium [Moles/Vol] 144 mmol/L Normal 136-145 [facility] ([place]) Comment on above: Performed By: #### G FR, A1C, ANEU, CBC, ADIFF, BMP #### [place] [address] [place], [place] [address] Urea nitrogen [Mass/Vol] 19 mg/dL High 7-18 [facility] ([place]) Comment on above: Performed By: #### G FR, A1C, ANEU, CBC, ADIFF, BMP #### [place] [address] [place], [place] [address] LABORATORYOrdered By: SYSTEM SYSTEM on 07-08-2023 Calcium [...] 10:35:22 AM Ordering Provider: MAHAD Geronimo [facility]) METon 04-14-2023 Methylmalonic Acid 340 nmol/L Normal 0-378 [facility]) Comment on above: Result Comment: This test was developed and its performance characteristics determined by [facility]. It has not been cleared or approved by the Food and Drug Administration. Performed At: [address] [id number] Hima Lieberman MD Ph:[phone] Performed By: #### G FR, A1C, ANEU, CBC, ADIFF, BMP #### [address] [address] B12on 04-07-2023 Cobalamin (Vitamin B12) [Mass/Vol] 600 pg/mL Normal 211-911 [facility] ([place]) Comment on above: Performed By: #### F OL, B12 #### [facility] [address] [place] [address] #### FT4, [id number], TSH #### [place] [address] [place], [place] [address] FOLon 04-07-2023 Folate >48.00 High 5.38-24.00 [facility] ([place]) Comment on above: Performed By: #### F OL, B12 #### [place] [address] #### FT4, [id number], TSH #### [address] [address] FT4on 04-07-2023 Free T4 [Mass/Vol] 0.99 ng/dL Normal 0.76-1.46 formerly [facility] ([place]) Comment on above: Performed By: #### F OL, B12 #### [place] [address] #### FT4, 370306, TSH #### [address] [address] LABORATORYOrdered By: SYSTEM SYSTEM on 04-07-2023 Cobalamin [...] 04-07-2023 TSH Qn 1.65 m[IU]/L Normal 0.36-3.74 [facility] ([place]) Comment on above: Performed By: #### F OL, B12 #### [place] [address] #### FT4, 932909, TSH #### [address] [address] .Auto Diffon 03-10-2023 Basophil, Absolute 0.1 10 3/mcL Normal 0.0-0.2 [facility] ([place]) Comment on above: Performed By: #### Francoise FR, A1C, ANEU, CBC, ADIFF, BMP #### [address] [address] Basophils/100 WBC (Bld) 1.2 % Normal 0.0-2.5 A [facility] ([place]) Comment on above: Performed By: #### G FR, A1C, ANEU, CBC, ADIFF, BMP #### [address] [address] Eosinophil, Absolute 0.1 10 3/mcL Normal 0.0-0.4 [facility] [place] Comment on above: Performed By: #### G FR, A1C, ANEU, CBC, ADIFF, BMP #### [address] [address] Eosinophils/100 WBC (Bld) 1.6 % Normal 0.0-7.0 [facility] ([place]) Comment on above: Performed By: #### G FR, A1C, ANEU, CBC, ADIFF, BMP #### [address] [address] Lymphocyte, Absolute 1.9 10 3/mcL Normal 0.8-3.9 [facility] [place] Comment on above: Performed By: #### G FR, A1C, ANEU, CBC, ADIFF, BMP #### [address] [address] Lymphocytes/100 WBC (Bld) 23.7 % Normal 10.0-50.0 [facility] ([place] Comment on above: Performed By: #### G FR, A1C, ANEU, CBC, ADIFF, BMP #### [address] [address] Monocyte, Absolute 0.6 10 3/mcL Normal 0.2-1.0 [facility] ([place] Comment on above: Performed By: #### G FR, A1C, ANEU, CBC, ADIFF, BMP #### [address] [address] Monocytes/100 WBC (Bld) 7.8 % Normal 1.7-13.0 [facility] ([place]) Comment on above: Performed By: #### G FR, A1C, ANEU, CBC, ADIFF, BMP #### [address] [address] Neutrophils/100 WBC (Bld) 65.7 % Normal 37.0-80.0 [facility] ([place]) Comment on above: Performed By: #### G FR, A1C, ANEU, CBC, ADIFF, BMP #### [address] [address] .GFRon 03-10-2023 GFR 63 ml/min/1.73sqm Normal [facility] ([place]) Comment on above: Result Comment: GFR Population [...] FR, A1C, ANEU, CBC, ADIFF, BMP #### [address] [address] GFR Non- 52 ml/min/1.73sqm Normal [facility] ([place]) Comment on above: Result Comment: GFR Population [...] FR, A1C, ANEU, CBC, ADIFF, BMP #### [address] [address] .NEUABSon 01-31-2024 Neutrophil, Absolute 5.2 10 3/mcL Normal 2.9-6.2 [facility] [place] Comment on above: Performed By: #### G FR, A1C, ANEU, CBC, ADIFF, BMP #### [address] [address] A1Con 03-10-2023 HbA1c (Bld) [Mass fraction] 5.6 % Normal 4.3-6.4 [facility] ([place]) Comment on above: Performed By: #### G FR, A1C, ANEU, CBC, ADIFF, BMP #### [address] [address] CBCon 03-10-2023 Erythrocyte distribution width (RBC) [Ratio] 14.7 % High 11.5-14.5 [facility] ([place]) Comment on above: Performed By: #### G FR, A1C, ANEU, CBC, ADIFF, BMP #### [place] [address] Hematocrit (Bld) [Volume fraction] 35.6 % Low 37.0-47.0 [facility] ([place] Comment on above: Performed By: #### G FR, A1C, ANEU, CBC, ADIFF, BMP #### [address] [address] Hgb 12.1 G/dL Normal 12.0-16.0 [facility] ([place] Comment on above: Performed By: #### G FR, A1C, ANEU, CBC, ADIFF, BMP #### [place] [address] MCH (RBC) [Entitic mass] 27.8 pg Normal 27.0-31.2 [facility] ([place] Comment on above: Performed By: #### G FR, A1C, ANEU, CBC, ADIFF, BMP #### [place] [address] MCHC 34.1 G/dL Normal 33.0-37.0 [facility] ([place]) Comment on above: Performed By: #### G FR, A1C, ANEU, CBC, ADIFF, BMP #### [address] [address] MCV (RBC) [Entitic vol] 81.7 fL Normal 80.0-94.0 A [facility] ([place]) Comment on above: Performed By: #### G FR, A1C, ANEU, CBC, ADIFF, BMP #### [address] [address] Platelet 300 10 3/mcL Normal 130-400 [facility] ([place]) Comment on above: Performed By: #### G FR, A1C, ANEU, CBC, ADIFF, BMP #### [address] [address] Platelet mean volume (Bld) [Entitic vol] 8.0 fL Normal 7.4-10.4 [facility] ([place]) Comment on above: Performed By: #### G FR, A1C, ANEU, CBC, ADIFF, BMP #### [address] [address] RBC 4.35 10 6/mcL Normal 4.20-5.40 [facility] ([place] Comment on above: Performed By: #### G FR, A1C, ANEU, CBC, ADIFF, BMP #### [address] [address] WBC 8.0 10 3/mcL Normal 4.6-10.8 [facility] ([place] Comment on above: Performed By: #### G FR, A1C, ANEU, CBC, ADIFF, BMP #### [address] [address] CMPon 03-10-2023 Chloride [Moles/Vol] 102 mmol/L Normal 98-107 [facility] ([place] Comment on above: Performed By: #### G FR, A1C, ANEU, CBC, ADIFF, BMP #### [address] [address] Electrolyte Balance 10.0 mEq/L Normal 4.0-15.0 [facility] [place] Comment on above: Performed By: #### G FR, A1C, ANEU, CBC, ADIFF, BMP #### [address] [address] Potassium [Moles/Vol] 4.3 mmol/L Normal 3.5-5.1 [facility] ([place]) Comment on above: Performed By: #### G FR, A1C, ANEU, CBC, ADIFF, BMP #### [address] [address] Sodium [Moles/Vol] 141 mmol/L Normal 136-145 [facility] ([place] Comment on above: Performed By: #### G FR, A1C, ANEU, CBC, ADIFF, BMP #### [address] [address] Albumin Level 3.7 G/dL Normal 3.4-4.8 [facility] ([place]) Comment on above: Performed By: #### G FR, A1C, ANEU, CBC, ADIFF, BMP #### [address] [address] Albumin/Globulin [Mass ratio] 1.1 {ratio} Normal 1.1-2.5 [facility] ([place]) Comment on above: Performed By: #### G FR, A1C, ANEU, CBC, ADIFF, BMP #### [address] [address] ALP [Catalytic activity/Vol] 79 U/L Normal 40-135 [facility] ([place] Comment on above: Performed By: #### G FR, A1C, ANEU, CBC, ADIFF, BMP #### [address] [address] ALT [Catalytic activity/Vol] 24 U/L Normal 14-59 [facility] ([place] Comment on above: Performed By: #### G FR, A1C, ANEU, CBC, ADIFF, BMP #### [address] [address] AST [Catalytic activity/Vol] 12 U/L Normal 10-40 [facility] ([place] Comment on above: Performed By: #### G FR, A1C, ANEU, CBC, ADIFF, BMP #### [address] [address] Bili Total 0.3 mg/dL Normal 0.2-1.0 [facility] ([place]) Comment on above: Result Comment: Use of this assay is not recommended for patients undergoing treatment with eltrombopag due to the potential for falsely elevated results. Performed By: #### G FR, A1C, ANEU, CBC, ADIFF, BMP #### [address] [address] BUN/Creatinine Ratio 25 ratio Normal 7-27 [facility] ([place] Comment on above: Performed By: #### G FR, A1C, ANEU, CBC, ADIFF, BMP #### [address] [address] Calcium [Mass/Vol] 10.1 mg/dL Normal 8.4-10.2 [facility] ([place] Comment on above: Performed By: #### G FR, A1C, ANEU, CBC, ADIFF, BMP #### [address] [address] CO2 [Moles/Vol] 29 mmol/L Normal 23-31 [facility] ([place] Comment on above: Performed By: #### G FR, A1C, ANEU, CBC, ADIFF, BMP #### [address] [address] Creatinine [Mass/Vol] 1.02 mg/dL Normal 0.55-1.02 [facility] ([place] Comment on above: Performed By: #### G FR, A1C, ANEU, CBC, ADIFF, BMP #### [address] [address] Globulin 3.3 G/dL Normal [facility] ([place]) Comment on above: Performed By: #### G FR, A1C, ANEU, CBC, ADIFF, BMP #### [address] [address] Glucose [Mass/Vol] 118 mg/dL High 83-110 [facility] ([place] Comment on above: Performed By: #### G FR, A1C, ANEU, CBC, ADIFF, BMP #### [address] [address] Total Protein 7.0 G/dL Normal 6.4-8.2 [facility] ([place] Comment on above: Performed By: #### G FR, A1C, ANEU, CBC, ADIFF, BMP #### [address] [address] Urea nitrogen [Mass/Vol] 26 mg/dL High 7-18 [facility] ([place]) Comment on above: Performed By: #### G FR, A1C, ANEU, CBC, ADIFF, BMP #### [address] [address] LIPIDon 03-10-2023 Cholesterol [Mass/Vol] 214 mg/dL High 0-200 [facility] Comment on above: Result Comment: Chol esterol Reference Interval: Less than 200 Desirable 200-239 Borderline high risk 240 and above High risk Performed By: #### G FR, A1C, ANEU, CBC, ADIFF, BMP #### [address] [address] Cholesterol in HDL [Mass/Vol] 62 mg/dL High 40-60 [facility] ([place]) Comment on above: Performed By: #### G FR, A1C, ANEU, CBC, ADIFF, BMP #### [address] [address] Cholesterol in LDL [Mass/Vol] 111 mg/dL Normal 0-130 [facility] ([place]) Comment on above: Performed By: #### G FR, A1C, ANEU, CBC, ADIFF, BMP #### [address] [address] Triglyceride [Mass/Vol] 205 mg/dL High 0-150 A [facility] ([place]) Comment on above: Result Comment: Trig lyceride Reference Interval: Less than 150 Normal 150-199 Borderline high risk 200-499 High risk 500 or higher Very high risk Performed By: #### G FR, A1C, ANEU, CBC, ADIFF, BMP #### [address] [address] PHOSon 01-31-2024 Phosphate [Mass/Vol] 3.2 mg/dL Normal 2.3-4.1 [facility] ([place] Comment on above: Performed By: #### G FR, A1C, ANEU, CBC, ADIFF, BMP #### [address] [address] PTHon 03-10-2023 PTH, Intact 78.2 pg/mL Normal 18.5-88.0 [facility] ([place]) Comment on above: Performed By: #### G FR, A1C, ANEU, CBC, ADIFF, BMP #### [address] [address] VIDHon 03-10-2023 Vit. D 25-Hydroxy 32.1 ng/mL Normal [facility] ([place]) Comment on above: Result Comment: Inte rpretive Values Based on Total 25(OH) Vitamin D: Deficient <20 ng/mL Insufficient 20 - <30 ng/mL Sufficient 30-100 ng/mL Performed By: #### G FR, A1C, ANEU, CBC, ADIFF, BMP #### [address] [address] BD BONE DENSITY DEXA AXIAL S KELETONon [...] 12/14/2022 9:37:25 AM Ordering Provider: LARRY Geronimo [facility] ([place]) .Auto Diffon 09-16-2022 Basophil, Absolute 0.1 10 3/mcL Normal 0.0-0.2 [facility] ([place] Comment on above: Performed By: #### G FR, A1C, ANEU, CBC, ADIFF, BMP #### [address] [address] Basophils/100 WBC (Bld) 0.8 % Normal 0.0-2.5 A [facility] ([place] Comment on above: Performed By: #### G FR, A1C, ANEU, CBC, ADIFF, BMP #### [address] [address] Eosinophil, Absolute 0.2 10 3/mcL Normal 0.0-0.4 [facility] [place] Comment on above: Performed By: #### G FR, A1C, ANEU, CBC, ADIFF, BMP #### [address] [address] Eosinophils/100 WBC (Bld) 2.1 % Normal 0.0-7.0 [facility] ([place]) Comment on above: Performed By: #### G FR, A1C, ANEU, CBC, ADIFF, BMP #### [address] [address] Lymphocyte, Absolute 2.0 10 3/mcL Normal 0.8-3.9 [facility] [place] Comment [place] above: Performed By: #### G FR, A1C, ANEU, CBC, ADIFF, BMP #### [address] [address] Lymphocytes/100 WBC (Bld) 22.9 % Normal 10.0-50.0 [facility] ([place]) Comment on above: Performed By: #### G FR, A1C, ANEU, CBC, ADIFF, BMP #### [address] [address] Monocyte, Absolute 0.5 10 3/mcL Normal 0.2-1.0 [facility] ([place] Comment on above: Performed By: #### G FR, A1C, ANEU, CBC, ADIFF, BMP #### [address] [address] Monocytes/100 WBC (Bld) 6.4 % Normal 1.7-13.0 A [facility] ([place] Comment on above: Performed By: #### G FR, A1C, ANEU, CBC, ADIFF, BMP #### [address] [address] Neutrophils/100 WBC (Bld) 67.8 % Normal 37.0-80.0 [facility] ([place]) Comment on above: Performed By: #### G FR, A1C, ANEU, CBC, ADIFF, BMP #### [address] [address] .GFRon 09-16-2022 GFR Non- 48 ml/min/1.73sqm Normal [facility] ([place]) Comment on above: Result Comment: GFR Population [...] FR, A1C, ANEU, CBC, ADIFF, BMP #### [address] [address] GFR 59 ml/min/1.73sqm Normal [facility] ([place]) Comment on above: Result Comment: GFR Population [...] FR, A1C, ANEU, CBC, ADIFF, BMP #### [address] [address] .NEUABSon 09-16-2022 Neutrophil, Absolute 5.8 10 3/mcL Normal 2.9-6.2 [facility] [place] Comment [place] above: Performed By: #### G FR, A1C, ANEU, CBC, ADIFF, BMP #### [address] [address] A1Con 09-16-2022 HbA1c (Bld) [Mass fraction] 5.7 % Normal 4.3-6.4 [facility] ([place]) Comment on above: Performed By: #### G FR, A1C, ANEU, CBC, ADIFF, BMP #### [address] [address] BMPon 09-16-2022 BUN/Creatinine Ratio 27 ratio Normal 7-27 [facility] ([place] Comment on above: Performed By: #### G FR, A1C, ANEU, CBC, ADIFF, BMP #### [address] [address] Calcium [Mass/Vol] 9.8 mg/dL Normal 8.4-10.2 [facility] ([place] Comment on above: Performed By: #### G FR, A1C, ANEU, CBC, ADIFF, BMP #### [address] [address] Chloride [Moles/Vol] 106 mmol/L Normal 98-107 [facility] ([place] Comment on above: Performed By: #### G FR, A1C, ANEU, CBC, ADIFF, BMP #### [address] [address] CO2 [Moles/Vol] 29 mmol/L Normal 23-31 [facility] ([place]) Comment on above: Performed By: #### G FR, A1C, ANEU, CBC, ADIFF, BMP #### [address] [address] Creatinine [Mass/Vol] 1.08 mg/dL High 0.55-1.02 [facility] ([place]) Comment on above: Performed By: #### G FR, A1C, ANEU, CBC, ADIFF, BMP #### [address] [address] Electrolyte Balance 8.0 mEq/L Normal 4.0-15.0 [facility] [place] Comment on above: Performed By: #### G FR, A1C, ANEU, CBC, ADIFF, BMP #### [address] [address] Glucose [Mass/Vol] 125 mg/dL High 83-110 [facility] ([place] Comment on above: Performed By: #### G FR, A1C, ANEU, CBC, ADIFF, BMP #### [address] [address] Potassium [Moles/Vol] 4.5 mmol/L Normal 3.5-5.1 [facility] ([place]) Comment on above: Performed By: #### G FR, A1C, ANEU, CBC, ADIFF, BMP #### [address] [address] Sodium [Moles/Vol] 143 mmol/L Normal 136-145 [facility] ([place] Comment on above: Performed By: #### G FR, A1C, ANEU, CBC, ADIFF, BMP #### [address] [address] Urea nitrogen [Mass/Vol] 29 mg/dL High 7-18 [facility] ([place]) Comment on above: Performed By: #### G FR, A1C, ANEU, CBC, ADIFF, BMP #### [address] [address] CBCon 09-16-2022 Erythrocyte distribution width (RBC) [Ratio] 14.6 % High 11.5-14.5 [facility] ([place]) Comment on above: Performed By: #### G FR, A1C, ANEU, CBC, ADIFF, BMP #### [place] [address] Hematocrit (Bld) [Volume fraction] 33.9 % Low 37.0-47.0 [facility] ([place] Comment on above: Performed By: #### G FR, A1C, ANEU, CBC, ADIFF, BMP #### [place] [id number] Hgb 11.2 G/dL Low 12.0-16.0 [facility] ([place]) Comment on above: Performed By: #### G FR, A1C, ANEU, CBC, ADIFF, BMP #### [place] [address] MCH (RBC) [Entitic mass] 27.0 pg Normal 27.0-31.2 [facility] ([place]) Comment on above: Performed By: #### G FR, A1C, ANEU, CBC, ADIFF, BMP #### [place] [address] MCHC 33.1 G/dL Normal 33.0-37.0 [facility] ([place] Comment on above: Performed By: #### G FR, A1C, ANEU, CBC, ADIFF, BMP #### [place] [address] MCV (RBC) [Entitic vol] 81.6 fL Normal 80.0-94.0 A [facility] ([place] Comment on above: Performed By: #### G FR, A1C, ANEU, CBC, ADIFF, BMP #### [place] [id number] Platelet 275 10 3/mcL Normal 130-400 [facility] ([place]) Comment on above: Performed By: #### G FR, A1C, ANEU, CBC, ADIFF, BMP #### [place] [address] [place], [place] [address] Platelet mean volume (Bld) [Entitic vol] 8.2 fL Normal 7.4-10.4 [facility] ([place] Comment on above: Performed By: #### G FR, A1C, ANEU, CBC, ADIFF, BMP #### [place] [address] [address] RBC 4.15 10 6/mcL Low 4.20-5.40 [facility] ([place]) Comment on above: Performed By: #### G FR, A1C, ANEU, CBC, ADIFF, BMP #### [place] [id number] [place], [place] [address] WBC 8.5 10 3/mcL Normal 4.6-10.8 [facility] ([place]) Comment on above: Performed By: #### G FR, A1C, ANEU, CBC, ADIFF, BMP #### [address] [address] LABORATORYOrdered By: SYSTEM SYSTEM on 06-19-2022 Basophils [...] Invalid Interpretation Code 22 - 32 mEq/L AH ADM SS Creatinine [Mass/Vol] 0.87 mg/dL Invalid Interpretation Code 0.50 - 1.20 mg/dL AH ADM SS Electrolyte Balance 6.0 mEq/L Invalid Interpretation Code 4.0 - 15.0 mEq/L AH ADM SS Eosinophils (Bld) [#/Vol] 0.2 103/mcL [...] SS CNPNon 06-03-2022 CNPN Telephone (GENSWS) SHACT ([id number]) 1940 F Date Time Provider Department 06/03/22 PAULA ALANIZ During your visit today, we recorded the following information about you: Brenton Jennings RN 06/03/2022 11:29 AM Signed Received a request from [facility] for all of Ct's left breast cancer treatment medical records. Faxed the request to medical records on [facility], fax confirmation sheet received. Brenton Jennings RN [...] Encounter Status:Closed by BRENTON JENNINGS on 06/03/22 [facility] LABORATORYOrdered By: SYSTEM SYSTEM on 04-14-2022 Albumin [...] CNOV Office Visit (DEANNS ) CT DALTON ([id number]) 1940 F Date Time Provider Department 04/06/22 [...] needle core breast biopsies on 03/23/2022 at [facility]. Findings of fat necrosis, inflammation [...] once daily. (more content not included)... Normal [facility] LABORATORYOrdered By: SYSTEM SYSTEM on 03-09-2022 Albumin [...] Code AO ADM SS LABORATORYOrdered By: Zaki aCmargo on 03-09-2022 Basophil, Absolute 0.1 103/mcL Invalid [...] Invalid Interpretation Code 0.20 - 1.20 mg/dL AH ADM SS Calcium [Mass/Vol] 10.1 mg/dL Invalid Interpretation Code 8.7 - 10.4 mg/dL AH ADM SS Chloride [Moles/Vol] 104 mmol/L Invalid Interpretation Code 98 - 110 mEq/L AH ADM SS CO2 [Moles/Vol] 26 mmol/L Invalid Interpretation Code 22 - 32 mEq/L AH ADM SS Creatinine [Mass/Vol] 0.83 mg/dL Invalid [...] 12-04 Culture Urine No growth to date [facility] Microscopic examination of blood, culture Culture has been received in lab and is no growth to date. Routine cultures are held for 5 days. [facility] LABORATORYOrdered By: Rick Webber on 12-03-2021 [...] 1.006-1.029 AM [facility] Subsection Urobilinogen Qn (U) [id number] {Sara'U}/dL Invalid Interpretation Code 0.2-1.0E.U. /dL AM [...] on above: Result Comment: [address] [place], [place] [address] Perf Loc - POCT Tested at AM Invalid Interpretation Code AM [employer] Subsection Comment on above: Result Comment: [address] [place], [place] [address] Perf Loc - POCT Tested at AM Invalid Interpretation Code AM [employer] Subsection Comment on above: Result Comment: Alesia [address] [place], [place] [address] MRI BREAST WO/W IVCON BILon 03-01-2018 MRI BREAST WO/W IVCON DUNCAN * * *Final Report* * * DATE OF EXAM: Mar 01 2018 11:54AM [facility] 0773 - MRI BREAST WO/W IVCON DUNCAN / PROCEDURE REASON: N64.4-Mastodynia * * * * Physician Interpretation * * * * #[id number] - MRI BREAST WO/W IVCON DUNCAN BREAST MRI OF BOTH BREASTS: 03/01/2018 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 Short interval follow up of the lumpectomy site recommended per the prior MRI dated 05/18/2017. RESULT: Comparison is made to exam dated: 05/18/2017 breast MRI - [facility]. Interpretation of this MRI was correlated [...] Follow-up with ACR/NCCN guidelines. Td carlson/rafael:03/01/2018 14:15:08 Operations Planner(s): RT Amanda(N)(MR), [facility] MRI BI-RADS: 2 Benign finding Multiple [...] Health, Family Medicine, and Medical/Surgical Oncology, the [facility] has carefully reviewed the data and [...] their providers when to stop screening mammograms. Hook And Eye Attacher: Rafael Transcribe Date/Time: Mar 01 2018 11:37A Dictated by : TD SANDERS MD This examination was interpreted and the report reviewed and electronically signed by: TD SANDERS MD on Mar 01 2018 2:15PM EST [id number] Normal [facility] NURSING PROGon 03-01-2018 Protein mass conc HNO ID: [id number] Author: Carla Love (Rn) Kristopher Service: Radiology [...] Summers RN March 01, 2018 10:49 AM [facility] Clinical Summary: HMSPatient IDon 01-17-2018 OOP Invalid Interpretation Code [facility] Work Phone: Office Visit: Follow-up by donnie servin Rm: [email or web address] 01-17-2018 NEGATED: Highlighted rowMRI (magnetic resonance imaging) history of the lumbar spine on 10/20/2013 at [facility] Invalid Interpretation Code [facility] Work Phone: NEGATED: Highlighted rowProtein mass conc Done Invalid Interpretation Code [facility] Work Phone: MRI BREAST WO/W IVCON BILon 05-18-2017 MRI BREAST WO/W IVCON DUNCAN * * *Final Report* * * DATE OF EXAM: May 18 2017 2:32PM [facility] 0773 - MRI BREAST WO/W IVCON DUNCAN / PROCEDURE REASON: Z13.89-Encounter for screening for other disorder * * * * Physician Interpretation * * * * #[id number] - MRI BREAST WO/W IVCON DUNCAN BREAST [...] by a staff physician. Cricket Pineda M.D. ns,bb/rafael:05/18/2017 15:28:32 Operations Planner: Cally SPEARS (R)(Jeanine), [facility] MRI BI-RADS: 3 Probably benign finding - short term interval follow-up recommended Hook And Eye Attacher: Rafael Transcribe Date/Time: May 18 2017 2:15P Dictated by : MALLIKA PINEDA MD This examination was interpreted and the report reviewed and electronically signed by: CRICKET AMBRIZ MD on May 18 2017 3:28PM EST [id number] [facility] NURSING PROGon 05-18-2017 Protein mass conc HNO ID: [id number] Author: Ema (Rn) DONA Bai Service: PICC [...] 2017 TIME: 1:27 PM PAGER/CONTACT #: [phone] [facility] Vital Signs Date Time Vital Sign Value Performing Clinician Facility 08-26-2024 12:46-0400 Body height 167.[address] Warner Leos MD Work Phone: [facility] 07-24-2024 03:24-0400 Diastolic blood pressure 69 mm[Hg] Dr. Warner Leos MD Work Phone: [facility] 07-24-2024 03:24-0400 Heart rate 52 /min Dr. Warner Leos MD Work Phone: [facility] 07-24-2024 03:24-0400 SaO2% (BldA) [Mass fraction] 100 % Dr. Warner Leos MD Work Phone: [facility] 07-24-2024 03:24-0400 Systolic blood pressure 164 mm[Hg] Dr. Warner Leos MD Work Phone: [facility] 07-24-2024 01:24-0400 Body height 167.[address] Warner Leos MD Work Phone: [facility] 07-24-2024 01:24-0400 Body mass index (BMI) [Ratio] 28 kg/m2 Dr. Warner Leos MD Work Phone: [facility] 07-24-2024 01:24-0400 Body temperature 98 [degF] Dr. Warner Leos MD Work Phone: [facility] 07-24-2024 01:24-0400 Body weight 78.[address] Warner Leos MD Work Phone: [facility] 07-24-2024 01:24-0400 Respiratory rate 16 /min Dr. Warner Leos MD Work Phone: [facility] 02-10-2024 15:30-0500 Body temperature 97.52 [degF] ELDA DEL ROSARIO REHAB OFFICE COORDINATOR-SAW TAILER [facility] 02-10-2024 15:30-0500 Diastolic Blood Pressure Non-Invasive 72 mm[Hg] ELDA DEL ROSARIO REHAB OFFICE COORDINATOR-SAW TAILER [facility] 02-10-2024 15:30-0500 Heart rate 84 /min ELDA DEL ROSARIO REHAB OFFICE COORDINATOR-SAW TAILER [facility] 02-10-2024 15:30-0500 Reason For Taking VItal Signs ELDA DEL ROSARIO REHAB OFFICE COORDINATOR-SAW TAILER [facility] 02-10-2024 15:30-0500 Respiratory rate 16 /min ELDA DEL ROSARIO REHAB OFFICE COORDINATOR-SAW TAILER [facility] 02-10-2024 15:30-0500 Systolic Blood Pressure Non-Invasive 146 mm[Hg] ELDA DEL ROSARIO REHAB OFFICE COORDINATOR-SAW TAILER [facility] 02-10-2024 06:37-0500 Body temperature 97.34 [degF] ELDA DEL ROSARIO REHAB OFFICE COORDINATOR-SAW TAILER [facility] 02-10-2024 06:37-0500 Diastolic Blood Pressure Non-Invasive 82 mm[Hg] ELDA DEL ROSARIO REHAB OFFICE COORDINATOR-SAW TAILER [facility] 02-10-2024 06:37-0500 Heart rate 80 /min ELDA DEL ROSARIO REHAB OFFICE COORDINATOR-SAW TAILER [facility] 02-10-2024 06:37-0500 Reason For Taking VItal Signs ELDA DEL ROSARIO REHAB OFFICE COORDINATOR-SAW TAILER [facility] 02-10-2024 06:37-0500 Respiratory rate 14 /min ELDA DEL ROSARIO REHAB OFFICE COORDINATOR-SAW TAILER [facility] 02-10-2024 06:37-0500 Systolic Blood Pressure Non-Invasive 148 mm[Hg] ELDA DEL ROSARIO REHAB OFFICE COORDINATOR-SAW TAILER [facility] 02-10-2024 03:22-0500 Body temperature 97.52 [degF] ELDA DEL ROSARIO REHAB OFFICE COORDINATOR-SAW TAILER [facility] 02-10-2024 03:22-0500 Diastolic Blood Pressure Non-Invasive 81 mm[Hg] ELDA DEL ROSARIO REHAB OFFICE COORDINATOR-SAW TAILER [facility] 02-10-2024 03:22-0500 Heart rate 81 /min ELDA DEL ROSARIO REHAB OFFICE COORDINATOR-SAW TAILER [facility] 02-10-2024 03:22-0500 Reason For Taking VItal Signs ELDA DEL ROSARIO REHAB OFFICE COORDINATOR-SAW TAILER [facility] 02-10-2024 03:22-0500 Respiratory rate 14 /min ELDA DEL ROSARIO REHAB OFFICE COORDINATOR-SAW TAILER [facility] 02-10-2024 03:22-0500 Systolic Blood Pressure Non-Invasive 156 mm[Hg] ELDA DEL ROSARIO REHAB OFFICE COORDINATOR-SAW TAILER [facility] 02-09-2024 22:01-0500 Heart rate 74 /min ELDA DEL ROSARIO REHAB OFFICE COORDINATOR-SAW TAILER [facility] 02-09-2024 21:59-0500 Body height 152 cm ELDA DEL ROSARIO REHAB OFFICE COORDINATOR-SAW TAILER [facility] 02-09-2024 21:59-0500 Body weight 67 kg ELDA DEL ROSARIO REHAB OFFICE COORDINATOR-SAW TAILER [facility] 02-09-2024 21:59-0500 Body weight 29 kg/m2 ELDA DEL ROSARIO REHAB OFFICE COORDINATOR-SAW TAILER [facility] 02-09-2024 21:07-0500 Heart rate 78 /min ELDA DEL ROSARIO REHAB OFFICE COORDINATOR-SAW TAILER [facility] 02-09-2024 21:07-0500 Mean blood pressure 90 mm[Hg] ELDA BUCKNERFF REHAB OFFICE COORDINATOR-SAW TAILER [facility] 02-09-2024 20:38-0500 Mean blood pressure 85 mm[Hg] ELDA BUCKNERFF REHAB OFFICE COORDINATOR-SAW TAILER [facility] 02-09-2024 19:39-0500 Heart rate 83 /min ELDA BUCKNERFF REHAB OFFICE COORDINATOR-SAW TAILER [facility] 01-21-2024 10:04-0500 Body height 160 cm INES DENNIS MD [facility] 01-21-2024 10:04-0500 Body temperature 97.52 [degF] INES DENNIS MD [facility] 01-21-2024 10:04-0500 Body weight 68.2 kg INES DENNIS MD [facility] 01-21-2024 10:04-0500 Diastolic Blood Pressure Non-Invasive 81 mm[Hg] INES DENNIS MD [facility] 01-21-2024 10:04-0500 Heart rate 85 /min INES DENNIS MD [facility] 01-21-2024 10:04-0500 Respiratory rate 18 /min INES DENNIS MD [facility] 01-21-2024 10:04-0500 Systolic Blood Pressure Non-Invasive 164 mm[Hg] INES DENNIS MD [facility] 12-09-2023 08:47-0400 Blood Pressure Location INES DENNIS MD [facility] 12-09-2023 08:47-0400 Blood Pressure Method INES DENNIS MD [facility] 12-09-2023 08:47-0400 Body temperature 98.24 [degF] INES DENNIS MD [facility] 12-09-2023 08:47-0400 Diastolic Blood Pressure Non-Invasive 91 mm[Hg] INES DENNIS MD [facility] 12-09-2023 08:47-0400 Heart rate 90 /min INES DENNIS MD [facility] 12-09-2023 08:47-0400 Respiratory rate 18 /min INES DENNIS MD [facility] 12-09-2023 08:47-0400 Systolic Blood Pressure Non-Invasive 161 mm[Hg] INES DENNIS MD [facility] 11-29-2023 12:26-0400 Diastolic Blood Pressure Non-Invasive 76 mm[Hg] SONNY STAHL DO [facility] 11-29-2023 12:26-0400 Heart rate 76 /min SONNY STAHL DO [facility] 11-29-2023 12:26-0400 Respiratory rate 18 /min SONNY STAHL DO [facility] 11-29-2023 12:26-0400 Systolic Blood Pressure Non-Invasive 164 mm[Hg] SONNY STAHL DO [facility] 11-29-2023 08:58-0400 Blood Pressure Cuff Size SONNY STAHL DO [facility] 11-29-2023 08:58-0400 Blood Pressure Location SONNY STAHL DO [facility] 11-29-2023 08:58-0400 Blood Pressure Method SONNY STAHL DO [facility] 11-29-2023 08:58-0400 Body height 155 cm SONNY STAHL DO [facility] 11-29-2023 08:58-0400 Body temperature 97.34 [degF] SONNY STAHL DO [facility] 11-29-2023 08:58-0400 Diastolic Blood Pressure Non-Invasive 83 mm[Hg] SONNY STAHL DO [facility] 11-29-2023 08:58-0400 Heart rate 84 /min SONNY STAHL DO [facility] 11-29-2023 08:58-0400 Respiratory rate 18 /min SONNY STAHL DO [facility] 11-29-2023 08:58-0400 Systolic Blood Pressure Non-Invasive 172 mm[Hg] SONNY STAHL DO [facility] 06-19-2022 12:01-04[address] Blood Pressure Cuff Size DR ANISA GOMEZ MD [facility] 06-19-2022 12:01-[address] ANISA GOMEZ MD [facility] 06-19-2022 12:01-[address] ANISA GOMEZ MD [facility] 06-19-2022 12:01-0400 Body height [address] ANISA GOMEZ MD [facility] 06-19-2022 12:01-0400 Body temperature 97.7 [degF] DR ANISA GOMEZ MD [facility] 06-19-2022 12:01-0400 Body weight 76.[address] ANISA GOMEZ MD [facility] 06-19-2022 12:01-0400 Body weight 31.88 kg/m2 DR ANISA GOMEZ MD [facility] 06-19-2022 12:01-0400 Diastolic Blood Pressure Non-Invasive [address] ANISA GOMEZ MD [facility] 06-19-2022 12:01-0400 Heart rate 86 /min DR ANISA GOMEZ MD [facility] 06-19-2022 12:01-0400 Systolic Blood Pressure Non-Invasive [address] ANISA GOMEZ MD [facility] 04-06-2022 09:47-0500 Body height 157.5 cm Paula Alaniz MD Work Phone: [facility] 04-06-2022 09:47-0500 Body temperature 97.81 [degF] Paula Alaniz MD Work Phone: [facility] 04-06-2022 09:47-0500 Body weight 73.94 kg Paula Alaniz MD Work Phone: [facility] 04-06-2022 09:47-0500 Diastolic blood pressure 70 mm[Hg] Paula Alaniz MD Work Phone: [facility] 04-06-2022 09:47-0500 Heart rate 109 /min Paula Alaniz MD Work Phone: [facility] 04-06-2022 09:47-0500 SaO2% (BldA) [Mass fraction] 99 % Paula Alaniz MD Work Phone: [facility] 04-06-2022 09:47-0500 Systolic blood pressure 148 mm[Hg] Paula Alaniz MD Work Phone: [facility] 12-25-2021 16:18-0500 Diastolic Blood Pressure Non-Invasive 69 1 INES DENNIS MD [facility] 12-25-2021 16:18-0500 Systolic Blood Pressure Non-Invasive 189 1 INES DENNIS MD [facility] 12-25-2021 15:56-0500 Body height 157.5 cm INES DENNIS MD [facility] 12-25-2021 15:56-0500 Body temperature 96.44 [degF] INES DENNIS MD [facility] 12-25-2021 15:56-0500 Body weight 65.9 kg INES DENNIS MD [facility] 12-25-2021 15:56-0500 Diastolic Blood Pressure Non-Invasive 109 1 INES DENNIS MD [facility] 12-25-2021 15:56-0500 Heart rate 90 /min INES DENNIS MD [facility] 12-25-2021 15:56-0500 Respiratory rate 20 /min INES DENNIS MD [facility] 12-25-2021 15:56-0500 Systolic Blood Pressure Non-Invasive 202 1 INES DENNIS MD [facility] 12-06-2021 12:58-0400 Diastolic blood pressure 77 mm[Hg] DR KEVIN VIRGEN MD [facility] 12-06-2021 12:58-0400 Mean blood pressure 111 mm[Hg] DR KEVIN VIRGEN MD [facility] 12-06-2021 12:58-0400 Systolic blood pressure 180 mm[Hg] DR KEVIN VIRGEN MD [facility] 12-06-2021 12:55-0400 Diastolic blood pressure 77 mm[Hg] DR KEVIN VIRGEN MD [facility] 12-06-2021 12:55-0400 Heart rate 60 /min DR KEVIN VIRGEN MD [facility] 12-06-2021 12:55-0400 Mean blood pressure 111 mm[Hg] DR KEVIN VIRGEN MD [facility] 12-06-2021 12:55-0400 Reason For Taking VItal Signs DR KEVIN VIRGEN MD [address] [place] [address] 12-06-2021 12:55-0400 Respiratory rate 18 /min DR KEVIN VIRGEN MD [address] [place] [address] 12-06-2021 12:55-0400 Systolic blood pressure 180 mm[Hg] DR KEVIN VIRGEN MD [address] 12-06-2021 08:46-0400 Heart rate 78 /min DR KEVIN VIRGEN MD [address] [place] [address] 12-06-2021 08:30-0400 Body temperature 98.06 [degF] DR KEVIN VIRGEN MD [address] [place] [address] 12-06-2021 08:30-0400 Diastolic blood pressure 82 mm[Hg] DR KEVIN VIRGEN MD [address] [place] [address] 12-06-2021 08:30-0400 Heart rate 77 /min DR KEVIN VIRGEN MD [address] 12-06-2021 08:30-0400 Mean blood pressure 106 mm[Hg] DR KEVIN VIRGEN MD [address] 12-06-2021 08:30-0400 Reason For Taking VItal Signs DR KEVIN VIRGEN MD [address] 12-06-2021 08:30-0400 Respiratory rate 17 /min DR KEVIN VIRGEN MD [address] [place] [address] 12-06-2021 08:30-0400 Systolic blood pressure 155 mm[Hg] DR KEVIN VIRGEN MD [address] [place] [address] 12-06-2021 03:45-0400 Body temperature 97.88 [degF] DR KEVIN VIRGEN MD [address] 12-06-2021 03:45-0400 Reason For Taking VItal Signs DR KEVIN VIRGEN MD [address] [place] [address] 12-06-2021 03:45-0400 Respiratory rate 18 /min DR KEVIN VIRGEN MD [address] [place] [address] 12-05-2021 23:53-0400 Body temperature 98.06 [degF] DR KEVIN VIRGEN MD [address] [place] [address] 12-04-2021 15:33-0400 Heart rate 56 /min DR KEVIN VIRGEN MD [address] [place] [address] 12-04-2021 02:47-0400 Heart rate 55 /min DR KEVIN VIRGEN MD [address] [place] [address] 12-03-2021 23:44-0400 Heart rate 60 /min DR KEVIN VIRGEN MD [address] [place] [address] 12-03-2021 21:46-0400 Body height [address] KEVIN VIRGEN MD [address] [place] [address] 12-03-2021 21:46-0400 Body weight 83.[address] KEVIN VIRGEN MD [address] [place] [address] 12-03-2021 21:46-0400 Body weight 32.73 kg/m2 DR KEVIN VIRGEN MD [address] [place] [address] 12-03-2021 21:30-0400 Heart rate 86 /min DR KEVIN VIRGEN MD [address] [place] [address] 12-03-2021 14:26-0400 Body temperature 98.06 [degF] DR KEVIN VIRGEN MD [address] [place] [address] 12-03-2021 14:26-0400 Body weight 83.[address] KEVIN VIRGEN MD [address] [place] [address] NEGATED: Highlighted [id number] 10:24-0500 BMI (Body Mass Index) 37.26 kg/m2 Rigo Best AT [facility] Work Phone: NEGATED: Highlighted [id number] 10:24-0500 BP Diastolic 72 mm[Hg] Rigo Sitko AT [facility] Work Phone: NEGATED: Highlighted [id number] 10:24-0500 BP Diastolic 82 mm[Hg] Rigo Sitko AT [facility] Work Phone: NEGATED: Highlighted [id number] 10:24-0500 BP Systolic 154 mm[Hg] Rigo Sitko AT [facility] Work Phone: NEGATED: Highlighted [id number] 10:24-0500 BP Systolic 149 mm[Hg] Rigo Sitko AT [facility] Work Phone: NEGATED: Highlighted [id number] 10:24-0500 Height 157.48 cm Rigo Sitko AT [facility] Work Phone: NEGATED: Highlighted [id number] 10:24-0500 Height 157 cm Rigo Sitko AT [facility] Work Phone: NEGATED: Highlighted [id number] 10:24-0500 Pulse (Heart Rate) 60 /min Rigo Best AT [facility] Work Phone: NEGATED: Highlighted [id number] 10:24-0500 Weight 92.08 kg Rigo Best AT [facility] Work Phone: NEGATED: Highlighted [id number] 10:24-0500 Weight 92 kg Rigo Sitko AT [facility] Work Phone: Encounters Encounter Date Encounter Type Care Provider Facility Start: 11-13-2024 ambulatory Jairon Medel Facili ty:[facility] Start: 10-16-2024 ambulatory Jairon Medel OLS Fa cility:[facility] Start: 10-16-2024 Registered Referred Jairon Medel MD -[facility] Start: 09-18-2024 ambulatory Efmargarette Medel Facili ty:[facility] Start: 09-18-2024 [facility] Start: 08-28-2024 End: 08-28-[address] Jairon Medel MD Work Phone: [facility] Start: 08-28-2024 End: 08-28-2024 [facility]: [facility]-28-[facility]24 [facility] Start: 08-28-2024 End: 08-28-2024 ambulatory Efmargarette Medel Facility:[facility] Start: 08-21-2024 ambulatory Efmargarette Medel Facili ty:[facility] Start: 08-21-2024 [facility] Start: 08-08-2024 End: 08-08-[address] Warner Leos MD Work Phone: [facility] Start: 08-08-2024 End: 08-08-[address] Jairon Medel MD -[facility] Work Phone: Start: 08-08-2024 Non-patient / Non-visit Dr. Julia young MD -[facility] Work Phone: Start: 07-24-2024 End: 07-24-[address] Warner Leos MD Work Phone: -[facility] Start: 07-24-2024 End: 07-24-2024 Patient encounter procedure Jane CASTRO -[facility] Work Phone: Start: 07-24-2024 End: 07-24-2024 Emergency department patient visit Dr. Warner Leos MD Work Phone: -Emergency Department Work Phone: Start: 06-27-2024 End: 06-27-[address] Warner Leos MD Work Phone: [facility] Start: 06-27-2024 End: 06-27-[address] Jairon Medel MD -[facility] Work Phone: Start: 06-26-2024 End: 06-26-[address] Warner Leos MD Work Phone: [facility] Work Phone: Start: 06-26-2024 End: 06-26-2024 Departed Referred Jairon Medel MD -[facility] Start: 06-26-2024 End: 06-26-2024 ambulatory Jairon TREVIÑO Facility:[facility] Start: 05-29-2024 End: 05-29-[address] Warner Leos MD Work Phone: [facility] Work Phone: Start: 05-29-2024 End: 05-29-2024 Departed Referred Jairon LockhartKate Ruvalcaba Start: 05-29-2024 Registered Referred Jairon LockhartKate Ruvalcaba Start: 05-29-2024 End: 05-29-2024 ambulatory Jairon De Leonsophia TREVIÑO Facility:[facility] Start: 05-24-2024 End: 05-24-[address] Warner Leos MD Work Phone: [facility] Work Phone: Start: 05-24-2024 End: 05-24-2024 Departed Referred Jairon Ruvalcaba Start: 05-24-2024 Registered Referred Jairon LockhartKate Ruvalcaba Start: 05-23-2024 End: 05-24-[address] Warner Leos MD Work Phone: [facility] Work Phone: Start: 05-23-2024 End: 05-23-2024 Patient encounter procedure Jane Barth NP- -[facility] Work Phone: Start: 05-15-2024 End: 05-15-[address] Warner Leos MD Work Phone: [facility] Work Phone: Start: 05-15-2024 End: 05-15-2024 Departed Referred Jairon LockhartKate Ruvalcaba Start: 05-15-2024 Registered Referred Jairon LockhartKate Ruvalcaba Start: 05-15-2024 End: 05-15-2024 ambulatory Jairon Medel OLS Facility:[facility] Start: 05-12-2024 End: 05-12-[address] Warner Leos MD Work Phone: [facility] Work Phone: Start: 05-12-2024 End: 05-12-2024 Patient encounter procedure Jane Barth NP-Donnie -[facility] Work Phone: Start: 05-01-2024 End: 05-01-[address] Warner Leos MD Work Phone: [facility] Work Phone: Start: 05-01-2024 End: 05-01-2024 Departed Referred Jairon Ruvalcaba Start: 05-01-2024 End: 05-01-2024 ambulatory Efmargarette Medel OLS Facility:[facility] Start: 04-26-2024 End: 04-26-2024 ambulatory Jane Barth PECAN CLE[employer]ER Facility:[facility] Start: 04-26-2024 End: 04-26-2024 Patient encounter procedure Jane Barth PECAN CLEANER- -[facility] Work Phone: Start: 04-11-2024 End: 04-11-2024 ambulatory Jairon Medel Facility:[facility] Start: 04-11-2024 End: 04-11-[address] [facility] Start: 04-03-2024 End: 04-03-2024 Patient encounter procedure Jane Barth PECAN CLEANER-C -[facility] Work Phone: Start: 04-03-2024 End: 04-03-2024 ambulatory Jane Barth PECAN CLEANER [facility] Start: 04-03-2024 Registered Referred Jairon Ruvalcaba Start: 03-27-2024 ambulatory Jairon TREVIÑO Fa cility:[facility] Start: 03-27-2024 Registered Referred Jairon LockhartKate Ruvalcaba Start: 02-29-2024 End: 02-29-2024 ambulatory Jairon Medel Facility:[facility] Start: 02-29-2024 End: 02-29-[address] Jairon Medel MD -[facility] Work Phone: Start: 02-28-2024 End: 02-28-2024 Departed Referred Jairon LockhartKate Ruvalcaba Start: 02-28-2024 End: 02-28-2024 ambulatory Jairon TREVIÑO Facility:[facility] Start: 02-24-2024 End: 02-24-2024 ambulatory Jane Barth PECAN CLEANER [facility] Start: 02-24-2024 End: 02-24-2024 Patient encounter procedure Jane Barth PECAN CLEANER-C -[facility] Work Phone: Start: 02-11-2024 End: 02-23-[address] LARRY THOMAS DO Facility:[facility] Start: 02-09-2024 End: 02-10-2024 Emergency department patient visit ELDA DEL ROSARIO APRN-SAW TAILER Facility:[facility] Start: 02-09-2024 End: 02-10-2024 Observation ELDA DEL ROSARIO APRN-SAW TAILER [facility] Start: 01-21-2024 End: 01-21-2024 Emergency department patient visit INES DENNIS MD [facility] Start: 01-05-2024 End: 01-05-[address] LARRY THOMAS DO [facility] Start: 01-05-2024 End: 01-05-[address] LARRY THOMAS DO [facility] Start: 12-29-2023 End: 12-29-[address] LARRY THOMAS DO Facility[facility] Start: 12-29-2023 End: 12-29-[address] LARRY THOMAS DO [facility] Start: 12-21-2023 End: 12-21-[address] LARRY THOMAS DO Facility[facility] Start: 12-21-2023 End: 12-21-[address] LARRY THOMAS DO [facility] Start: 12-18-2023 End: 01-26-[address] LARRY THOMAS DO Facility:[facility] Start: 12-15-2023 End: 12-15-[address] LARRY THOMAS DO [facility] Start: 12-15-2023 End: 12-15-[address] LARRY THOMAS DO [facility] Start: 12-15-2023 End: 12-19-[address] LARRY THOMAS DO [facility] Start: 12-15-2023 End: 12-19-[address] LARRY THOMAS DO [facility] Start: 12-09-2023 End: 12-09-2023 Emergency department patient visit INES DENNIS MD [facility] Start: 11-29-2023 End: 11-29-2023 Emergency department patient visit SONNY STAHL DO [facility] Start: 07-08-2023 End: 07-09-[address] LARRY THOMAS DO Facility:[facility] Start: 07-08-2023 End: 07-08-[address] LARRY THOMAS DO [facility] Start: 04-14-2023 End: 04-15-2023 ambulatory MAHAD LORENZO MD Facility:[facility] Start: 04-14-2023 End: 04-14-2023 Patient encounter procedure MAHAD LORENZO MD [facility] Start: 04-09-2023 End: 05-06-[address] LARRY THOMAS DO Facility:[facility] Start: 04-09-2023 End: 02-14-[address] LARRY THOMAS DO Facility:[facility] Start: 04-07-2023 End: 04-08-[address] LARRY THOMAS DO Facility:[facility] Start: 04-07-2023 End: 04-07-2023 Patient encounter procedure MAHAD LORENZO MD [facility] Start: 03-10-2023 End: 03-11-[address] LARRY THOMAS DO Facility:[facility] Start: 12-14-2022 End: 12-15-[address] LARRY THOMAS DO Facility:[facility] Start: 2022 End: 11-09-[address] LARRY THOMAS DO Facility:[facility] Start: 2022 End: 11-09-2022 Coordination of care plan DR LARYR THOMAS DO [facility] Start: 09-16-2022 End: 09-17-[address] LARRY THOMAS DO Facility:[facility] Start: 07-16-2022 End: 07-17-[address] ANISA GOMEZ MD Facility:[facility] Start: 06-19-2022 End: 06-19-[address] ANISA GOMEZ MD [facility] Start: 06-03-2022 Telephone encounter Paula Yepez MD Work Phone: General Surgery Comment on above: Request for medical records Start: 04-15-2022 End: 04-15-[address] LARRY THOMAS DO [facility] Start: 04-14-2022 End: 04-14-[address] LARRY THOMAS DO [facility] Start: 04-06-2022 End: 04-07-2022 ambulatory PAULA ALANIZ Facility:[facility] Start: 04-06-2022 End: 04-06-2022 Patient encounter procedure Paula Alaniz MD Work Phone: General Surgery Comment on above: Abnormal ultrasound of breast; History of left breast cancer Start: 03-23-2022 End: 03-23-2022 Patient encounter procedure ALANNA WRIGHT DO [facility] Start: 03-09-2022 End: 03-09-[address] LARRY THOMAS DO [facility] Start: 02-23-2022 End: 02-23-2022 Patient encounter procedure ALANNA WRIGHT DO [facility] Start: 01-22-2022 End: 01-22-2022 Patient encounter procedure ALANNA WRIGHT DO [facility] Start: 12-25-2021 End: 11-17-2022 Emergency department patient visit INES DENNIS MD [facility] Start: 12-03-2021 End: 12-06-[address] KEVIN VIRGEN MD [facility] Start: 05-05-2021 End: 05-05-2021 Patient encounter procedure ALANNA Herrera ADRIANA [facility] Start: 12-11-2020 End: 12-11-2020 Patient encounter procedure SEAN POOLE MD [facility] Start: 03-01-2018 Patient encounter procedure [facility] Start: 01-17-2018 End: 01-17-2018 Patient encounter procedure Carla Dye MD Work Phone: [facility] Work Phone: Start: 05-18-2017 Patient encounter procedure [facility] Procedures Date Procedure Procedure Detail Performing Clinician [...] Date Care Activity Detail Author Start: 07-24-2024 [facility] Start: 02-08-2022 ADVANCE DIRECTIVE DISCUSSION ADVANCE DIRECTIVE DISCUSSION [facility] Start: 02-08-2022 DEPRESSION ASSESSMENT DEPRESSION ASSESSMENT [facility] Start: 08-10-2021 COVID-19 VACCINE (5 - Booster for Moderna series) COVID-19 VACCINE (5 - Booster for Moderna series) [facility] Start: 01-17-2018 End: 01-17-2018 Appointment Appointment [facility] Work Phone: Start: 09-23-2003 BONE DENSITY BONE DENSITY [facility] Start: 09-23-2003 PNEUMOCOCCAL: 65+ (1 - PCV) PNEUMOCOCCAL: 65+ (1 - PCV) [facility] Start: 1988 SHINGRIX VACCINE (1 of 2) SHINGRIX VACCINE (1 of 2) [facility] Start: 09-23-1983 DIABETES SCREEN DIABETES SCREEN [facility] Start: 1957 Urine microalbumin profile DTAP,TDAP,TD (1 - Tdap) [facility] Patient Education [facility] Work Phone: Patient referral [facility] Work Phone: Immunizations Immunization Date Immunization Notes Care Provider [facility] 12-27-2022 SARS-CoV-2 (COVID-19 ) [id number] MAHAD LORENZO MD [facility] 11-05-2022 zoster vaccine recombinant MAHAD LORENZO MD [facility] 10-03-2022 influenza virus vacc ine, unspecified formulation MAHAD LORENZO MD [facility] 09-15-2022 pneumococcal 20-lisa nt conjugate vaccine MAHAD LORENZO MD [facility] 01-10-2022 influenza virus vacc ine, unspecified formulation MAHAD LORENZO MD [facility] 06-15-2021 SARS-CoV-2 (COVID-19 ) mRNA-[id number] vaccine MAHAD LORENZO MD [facility] 12-12-2020 SARS-CoV-2 (COVID-19 ) mRNA-1273 vaccine MAHAD LORENZO MD [facility] Comment on above: Result Comment: 2022: [id number] 10-22-2020 influenza virus vacc ine, unspecified formulation MAHAD LORENZO MD [facility] 03-28-2020 COVID-19, mRNA, LNP- S, PF, 100 mcg/ 0.5 mL dose; Translations: [Moderna COVID-19 Vaccine] SEAN POOLE MD [facility] 02-29-2020 COVID-19, mRNA, LNP- S, PF, 100 mcg/ 0.5 mL dose; Translations: [Moderna COVID-19 Vaccine] SEAN POOLE MD [facility] 10-12-2019 influenza virus vacc ine, unspecified formulation SEAN POOLE MD [facility] Comment on above: Result Comment: phar liv administered 10-11-2019 influenza virus vacc ine, unspecified formulation MAHAD LORENZO MD [facility] 10-11-2019 pneumococcal conjuga te vaccine, 13 valent SEAN POOLE MD [facility] 10-07-2018 influenza virus vacc ine, unspecified formulation SEAN POOLE MD [facility] 12-21-2017 influenza virus vacc ine, unspecified formulation SEAN POOLE MD [facility] 10-27-2016 influenza virus vacc ine, unspecified formulation SEAN POOLE MD [facility] 10-29-2015 influenza virus vacc ine, unspecified formulation SEAN POOLE MD [facility] 10-30-2014 influenza virus vacc ine, unspecified formulation SEAN POOLE MD [facility] 10-31-2013 influenza virus vacc ine, unspecified formulation SEAN POOLE MD [facility] 11-01-2012 influenza virus vacc ine, unspecified formulation SEAN POOLE MD [facility] 01-09-2005 pneumococcal polysaccharide vaccine, 23 valent SEAN POOLE MD [facility] No information available. Rigo Best AT [facility] Work Phone: Payers Date Payer Category Payer Self-pay [id number] 2017 Private Health Insurance [id number] 2017 Unknown [id number] 2003 Medicare [id number]. 1.13.159.2.7.3.6 [id number] 2003 Medicare [id number] 1940 Unknown [id number] 2.16.840.1.525554.3.579.2.627 1938 Unknown [id number] 2.16.840.1.188158.3.579.2.627 1938 Unknown [id number] 2.16.840.1.711776.3.579.2. 1938 Unknown [id number] 2.16.840.1.401960.3.579.2. 1938 Unknown [id number] 2.16.840.1.134191.3.579.2. 1938 Unknown [id number] 2.16.840.1.403916.3.579.2. 1938 Unknown [id number] 2.840.1.054683.3.579.2 1938 Unknown [id number] 2.840.1.845779.3.579.2 1938 Unknown [id number] 2.840.1.632567.3.579.2. 1938 Unknown [id number] 2.840.1.081778.3.579.2. 1938 Unknown [id number] 2.840.1.012601.3.579.2. 1938 Unknown [id number] 2.840.1.640618.3.579.2. 1938 Unknown [id number] 2.840.1.434672.3.579.2. 1938 Unknown [id number] 2.840.1.397923.3.579.2. 1938 Unknown [id number] 2.840.1.618703.3.579.2. 1938 Unknown [id number] 2.840.1.541357.3.579.2. 1938 Unknown [id number] 2.840.1.243970.3.579.2 Medicare MEDICARE PART A B [id number] Unknown [id number] 2.16.840.1.463199.3.579.2.462 Unknown [id number] 2.16.840.1.641519.3.579.2.462 Unknown [id number] 2.16840.1.039565.3.579.2.462 Unknown [id number] 2.16.840.1.705490.3.579.2.462 Unknown [id number] 2.840.1.553747.3.579.2.462 Unknown [id number] 2..840.1.739229.3.579.2.462 Unknown [id number] 2.840.1.925563.3.579.2.462 Unknown [id number] 2.840.1.191738.3.579.2.462 Unknown [id number] 2.840.1.895865.3.579.2.462 Unknown [id number] 2.840.1.475347.3.579.2.462 Unknown [id number] 2.840.1.465238.3.579.2.462 Unknown [id number] 2.840.1.926859.3.579.2.462 Unknown [id number] 2.840.1.895022.3.579.2.462 Unknown [id number] 2.840.1.540052.3.579.2.462 Unknown [id number] 2.16.840.1.706109.3.579.2.462 Unknown [id number] 2.16.840.1.536453.3.579.2.462 Unknown [id number] 2.16.840.1.540332.3.579.2.462 Unknown [id number] 2.16.840.1.894414.3.579.2.462 Unknown [id number] 2.16.840.1.477083.3.579.2.462 Unknown [id number] 2.16.840.1.078085.3.579.2.462 Unknown [id number] 2.16.840.1.900981.3.579.2.462 Unknown [id number] 2.16.840.1.104451.3.579.2.462 Unknown [id number] 2.16.840.1.159655.3.579.2.462 Unknown [id number] 2.16.840.1.398576.3.579.2.462 Social History Date Type Detail Facility Start: 01-17-2018 End: 01-17-2018 Assertion Unknown if ever smoked [facility] Work Phone: Start: 04-07-2019 End: 08-26-2024 Never smoked tobacco (finding) [facility] Sex Assigned At [facility] Start: 04-06-2022 Tobacco use and exposure Smokeless tobacco non-user [facility] Start: 04-06-2022 Alcohol intake 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 non-dr 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 (finding) [facility] Start: 1940 Sex Assigned At Not on file [facility] Start: 05-25-2013 End: 05-31-2024 Sex Female (finding) [facility] Start: 1940 Sex Assigned At Female W [facility] Sex Female [facility] Medical Equipment Procedure Code Equipment Code [...] gray q2hrs Performed Other: 7AM - 4PM [facility] 02-10-2024 Functional Status Financial gast[place] gement, Home management, Laundry, Meal preparation, Personal ADL, Shopping [facility] 02-10-2024 Functional Status Sup [facility] 02-10-2024 Functional Status Identified as high risk, Door open, Non-Slip footwear, Room check performed [facility] 02-10-2024 Functional Status [facility] 02-10-2024 Functional Status [facility] 02-10-2024 Functional Status [facility] 02-09-2024 Functional Status [facility] 01-21-2024 Functional Status Minimum assistance [facility] 01-21-2024 Functional Status Independent [facility] 12-09-2023 Functional Status Minimum assistance [facility] 12-09-2023 Functional Status ID band on, Call device within reach, Bed in low position, Wheels locked, Upper/Half-Length side-rails up, Visitor at bedside, Safety level maintained [facility] 11-29-2023 Functional Status Up ad nazario [facility] 11-29-2023 Functional Status Standard Safet y ID band on, Call device within reach, Bed in low position, Wheels locked, Upper/Half-Length side-rails up, Visitor at bedside [facility] 06-19-2022 Functional Status Sensory Deficits None [facility] 12-25-2021 Functional Status Independent [facility] 12-06-2021 Functional Status None [facility] 12-06-2021 Functional Status Room check performed [facility] 12-06-2021 Functional Status [facility] 12-06-2021 Functional Status [facility] 12-05-2021 Functional Status [facility] Functional Status [facility] 12-05-2021 Functional Status Mod A 1 [facility] 12-04-2021 Functional Status Single level home [facility] 12-04-2021 Functional Status [facility] 12-04-2021 Functional Status [facility] 12-04-2021 Functional Status [facility] 12-04-2021 Functional Status [facility] 12-04-2021 Functional Status SCD On/Re-appl ied bilateral knee high [facility] 12-03-2021 Functional Status Ambulation in Room [facility] Mental Status Date Assessment Result Facility 02-10-2024 Mental Status Not oriented to time, Forgetful, Follows simple commands [facility] 02-09-2024 Mental Status [facility] 02-09-2024 Mental Status [facility] 01-21-2024 Mental Status Orientation Not oriented to situation, Forgetful [facility] 01-21-2024 Mental Status [facility] 12-09-2023 Mental Status Orientation Oriented x 4 [facility] 12-09-2023 Mental Status [facility] 11-29-2023 Mental Status Orientation Oriented x 4 [facility] 11-29-2023 Mental Status [facility] 12-25-2021 Mental Status Orientation Oriented x 4 [facility] 12-06-2021 Mental Status Oriented x 4, Forgetful [facility] 12-06-2021 Mental Status [facility] 12-06-2021 Mental Status [facility] Clinical Notes 12-03-2021 to 07-24-2024 Note Date & Type Note Facility 07-24-2024 Discharge summary [facility] 07-24-2024 Radiology Diagnostic study note [facility] Imaging Services [address] [place] [address] HIP, UNI W/ Pelvis 2-3 Views MR#: [id number] Acct: [id number] Name: CT DALTON Rep #: [id number] : 1940 F 83 From: Jane Vance MD PCP: Dr. Jairon Medel MD Status: R EG ER Study:HIP, UNI W/ Pelvis 2-3 Views Date of Ex am: 07/24/24 Exam# [id number] Ordering Dr: Sharon Harry MD PROCEDURE: HIP, [...] Right hip moderate degenerative changes. [facility] CC: Dr. Jairon Medel MD; Dr. 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 Follow Up Care 02/09/2024 19:37:05 With:LARRY THOMAS DO Address: [address] [facility] [place] [address] [phone] When:02/16/2024 09:30:00 Comments:This is your post-hospital appointment. Follow-up as scheduled. [facility] 02-10-2024 Note Discharge Instructions Thank you for allowing [facility] to assist you with your healthcare needs. The following is important discharge information regarding your hospital visit. Your Care Team SUSY ALBRIGHT APRN-SAW TAILER Your Diagnosis (HFpEF) heart failure with preserved ejection fraction Dementia Weakness What to do next Scheduled Follow-Up Appointments Appointment Type When With Where Contact Information StatusPC OV 02/16/2024 09:30 AM EST LARRY THOMAS DO [address] [phone] Confirmed Follow Up Appointments Follow Up with LARRY THOMAS DO When:02/16/2024 09:30 AM EST Where:[address] [place] [phone] Additional Information: This is your post-hospital appointment. [...] providers or retail pharmacies. Medication Leaflets memantine ([facility] MAN teen) Nameroycea, Katherine JACOBSON What is the most important information I [...] may report side effects to FDA at 8-462-MBF-0383. What other drugs will affect memantine? Tell [...] may interact with memantine, including prescription and vwab-klm-poadzxr medicines, vitamins, and herbal products. Not all [...] to ensure that the information provided by [employer]. ('[employer]') is accurate, up-to-date, and complete, but no guarantee is made to that effect. Drug information contained herein may be time sensitive. [employer] information has been compiled for use by healthcare practitioners and consumers in the [place] and therefore [employer] does not warrant that uses outside of the [place] are appropriate, unless specifically indicated otherwise. [employer]'s drug information does not endorse drugs, diagnose patients or recommend therapy. [employer] drug information is an informational resource designed [...] effective or appropriate for any given patient. [facility] does not assume any responsibility for any aspect of healthcare administered with the aid of information [facility] provides. The information contained herein is not intended to cover all possible uses, directions, precautions, warnings, drug interactions, allergic reactions, or adverse effects. If you have questions about the drugs you are taking, check with your doctor, nurse or pharmacist. Copyright 1164-8727 [facility] [employer] Version: 5.. Revision Date: 09/21/2022. Education Materials Dementia Dementia [...] Follow these instructions at home: Medicines Take akoh-elt-wuvcuzn and prescription medicines only as told by [...] Document Reviewed: 04/11/2019 Elsevier Patient Education 2019 [employer] Inc. Additional Information VACCINATE! IT SAVES LIVES! Members of the community who have not yet received the COVID-19 vaccine and would like to receive it can visit one of [facility] vaccine clinics. There are many vaccine clinic locations within the [facility]. For locations and available times, please visit https://gettheshot.coronavirus.[place].gov/. It is important to note that some COVID mobile vaccine clinics are held outdoors and may be canceled in rainy or stormy conditions. To learn more about pediatric vaccinations (ages 5-11), we invite you to visit the [employer] webpage. https://www.Webcentrixs.org/pag es/9767-Gdxpj-Gkbkfodvrte-Frequent hi-Qttam-Aqkncyqog.html To learn more about the COVID-19 vaccine, we invite you to visit the CDC website for a list of frequently asked questions.https://www.cdc.gov/armando navirus/2019-ncov/vaccines/faq.htm l [facility] Patient Portal Access Instructions: Stay connected with your healthcare team and access your personal medical information anytime with the [facility] Patient Portal. Please follow the directions below to create your [facility] account: 1.Access the email account you provided upon registration to the hospital/physician office.2.Look for an invitation email from [facility].3.Open the email and access the invitation link: Accept Invitation to [facility].4.Fill in the required alejandro to create your account. To access your account, visit [facility]/[employer] UpgradeOneChart. Click the blue button labeled Access Patient [...] you will allow to register on the [facility] for access to your information. You can also access the [facility] Patient Portal on the [facility] Any[facility] angelica. Simply click on Patient Portal and then log into your account. If you would like to receive a full copy of your medical records, please contact the [facility] Medical Records Department by calling [phone], Wednesday through Wednesday between 8 a.m. and [...] Call your local pharmacy or go to http://FrugalMechanic/7I6Di9f to find one close to you.3.Make use of household items: Use cat litter or old coffee grounds to dispose medications if other options are not available. Mix your drugs with these household products, seal them in an airtight container and throw it into the garbage. Call [facility]: [phone] to be sure your drugs can be [...] CHART COPY. Signatures Patient Education Materials Dementia, Sgua-uf-Merz Medication Leaflets memantine My discharge plan and instructions have been reviewed and explained to me and I,CT DALTON understand my current condition and have read and understand these discharge instructions. I have received a written copy of the plan/instructions. If I have questions, I am aware that I should contact my doctor. 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 Weakness 2. (HFpEF) heart failure [...] Date:02/16/2024 09:30:00 AM Scheduled Provider:LARRY THOMAS DO Location[facility] Appointment Type: OV [facility] 01-02-2025 Note Date of Service 02/10/24 Chief Complaint patient called EMS with complaint of BLE swelling. patient poor historian but continues to report BLE swelling on arrival. also states that she feels weak. History of Present Illness 83 year old female with past medical history of dementia, urinary frequency, dizziness, breast cancer, CKD Stage 3, anemia, HLD, HFpEF. Patient presented to [facility] ED on 02/09/24 due to family [...] by SUSY ALBRIGHT on 02/10/2024 10:21 AM [place] [address]-01-2025 Note* Exam Date Time Procedure Performing Provider Status 02/09/24 8:10 PM XR Chest 1 View EILEEN CHRISTINE DO; Aut h (Verified) [id number] ORIGINAL EXAMINATION: ONE XRAY VIEW OF THE [...] 02/09/2024 9:08:10 PM Ordering Provider: TRIXIE BARONE [facility]01-01-2025 Note* Exam Date Time Procedure Performing Provider Status 02/09/24 7:59 PM EKG [ED AOH] - CV MD TRIXIE BARONE MD; Auth (Verified) ECG Final Report Sinus rhythm LVH by voltage Inferior infarct, old Anterior Q waves, possibly due to LVH Electronic Signature: MD TRIXIE BARONE MD 02/09/2024 20:03:00 [facility]12-13-2024 Hospital Discharge instructions Patient Education 01/21/2024 [...] mid-urethra. Front view of female urinary tract. 4599-5880 [employer]. [address] [place] [address]. All rights reserved. This information is not intended as a substitute for professional medical care. Always follow yourhealthcare professional's instructions. Follow Up Care 01/21/2024 09:33:55 With:LARRY THOMAS DO Address: [address] [place] [phone] When:2-4 days [facility] 12-13-2024 Note Discharge Instructions Thank you for allowing [facility] to assist you with your healthcare needs. The following is importantdischarge information regarding your hospital visit. Diagnosis from Today's Visit Bladder pain What to Do Next Instructions from Your Care Team No qualifying data available. Post Acute Orders No qualifying data available. You Need to Schedule the Following Appointments Follow Up with LARRY THOMAS DO When:Within 2-4 days Where:[address] [place] [address] [phone] Allergies NKA Medications Please ask your primary [...] mid-urethra. Front view of female urinary tract. 8624-5286 [employer]. [address] [place] [address]. All rights reserved. This information is not intended as a substitute for professional medical care. Always follow yourhealthcare professional's instructions. Additional Information VACCINATE! IT SAVES LIVES! Members of the community who have not yet received the COVID-19 vaccine and would like to receive it can visit one of [facility] vaccine clinics. There are many vaccine clinic locations within the [facility]. For locations and available times, please visit www.gettheshot.coronavirus.[place].gov/. It is important to note that some COVID mobile vaccine clinics are held outdoors and may be canceled in rainy or stormy conditions. To learn more about pediatric vaccinations (ages 5-11), we invite you to visit the [facility] webpage. https://www.[facility].org/pages/3730-Igpvi-Sbfhvsaohov-Shgoirkbbs-Jeiiy-Vns stions.htmlTo learn more about the COVID-19 vaccine, we invite you to visit the CDC website for a list of frequently asked questions. https://www.cdc.gov/coronavirus/2019-ncov/vaccines/faq.html [facility] Patient Portal Access Instructions: Stay connected with your healthcare team and access your personal medical information anytime with the [facility] Patient Portal. If you would like a full copy of your medical records please contact the [facility] Medical Records Department Wednesday through Wednesday between 8a.m. and 4:30p.m. Please follow the directions below to access the portal: 1.Access the email account you provided upon registration to the [facility].2.Look for an invitation email from [facility].3.Open the email and access the invitation link: Accept Invitation to [facility]4.Fill in the required alejandro to create your account. Sign into www.Grand Round Table with your username and password that you [...] you will allow to register on the [facility] Patient Portal for access to your information. You can also access the [facility] Patient Portal on the [employer]. Simply click on Health Records under InfoNowData and then click on the [employer] Up[employer] logo. HOW TO SAFELY DISPOSE OF PRESCRIPTION [...] Call your local pharmacy or go to http://bit.CURRENT/3H7Tn7m to find one close to you.3.Make use of household items: Use cat litter or old coffee grounds to dispose medications if other options arenot available. Mix your drugs with these household products, seal them in an airtight container andthrow it into the garbage. Call [facility]: [phone] to be sure your drugs can be [...] aware that I should contact my doctor. Patient/Fashion Editor Signature: Date/Time: Relationship to Patient: Witness Name/Signature: Date/Time: [facility]11-12-2024 Note ORIGINAL EXAMINATION: AP lateral obliques [...] Sign Date: 12/21/2023 4:34:05 PM Ordering Provider: [facility]11-12-2024 Note ORIGINAL EXAMINATION: TWO XRAY [...] Sign Date: 12/21/2023 4:21:17 PM [facility]. MICRO - Microbiology PROCEDURE: Urine [...] This test was performed at: [facility], [address] [place] [address], [address]- , [facility]10-31-2024 Hospital Discharge instructions Patient Education [...] mid-urethra. Front view of female urinary tract. 1512-7394 [employer]. [address] [place] [address]. All rights reserved. This information is not intended as a substitute for professional medical care. Always follow yourhealthcare professional's instructions. Follow Up Care 12/09/2023 08:33:51 With:LARRY THOMAS DO Address: [address] [place] [address]- [phone] When:2-4 days [facility] 10-31-2024 Note Discharge Instructions Thank you for allowing [facility] to assist you with your healthcare needs. The following is importantdischarge information regarding your hospital visit. Diagnosis from Today's Visit Urinary frequency What to Do Next Instructions from Your Care Team No qualifying data available. Post Acute Orders No qualifying data available. You Need to Schedule the Following Appointments Follow Up with LARRY THOMAS DO When:Within 2-4 days Where:0 [facility] [place] [address]- [phone] Allergies NKA Medications Please ask your primary [...] mid-urethra. Front view of female urinary tract. 6927-1524 [employer]. [address] [place] [address]. All rights reserved. This information is not intended as a substitute for professional medical care. Always follow yourhealthcare professional's instructions. Additional Information VACCINATE! IT SAVES LIVES! Members of the community who have not yet received the COVID-19 vaccine and would like to receive it can visit one of [facility] vaccine clinics. There are many vaccine clinic locations within the [facility]. For locations and available times, please visit www.[email or web address].[place].gov/. It is important to note that some COVID mobile vaccine clinics are held outdoors and may be canceled in rainy or stormy conditions. To learn more about pediatric vaccinations (ages 5-11), we invite you to visit the [facility] webpage. https://www.[facility].org/pages/0606-Akbab-Fqrzjefkpjj-Jpvjrhwsvi-Zpabm-Syn stions.htmlTo learn more about the COVID-19 vaccine, we invite you to visit the CDC website for a list of frequently asked questions. https://www.cdc.gov/coronavirus/2019-ncov/vaccines/faq.html [facility] Patient Portal Access Instructions: Stay connected with your healthcare team and access your personal medical information anytime with the [facility] Patient Portal. If you would like a full copy of your medical records please contact the [facility] Medical Records Department Wednesday through Wednesday between 8a.m. and 4:30p.m. Please follow the directions below to access the portal: 1.Access the email account you provided upon registration to the [facility].2.Look for an invitation email from [facility].3.Open the email and access the invitation link: Accept Invitation to [facility]4.Fill in the required alejandro to create your account. Sign into www.Grand Round Table with your username and password that you [...] you will allow to register on the [facility] Patient Portal for access to your information. You can also access the [facility] Patient Portal on the Filter Squad angelica. Simply click on Health Records under MailTime and then click on the Think Upgrade logo. HOW TO SAFELY DISPOSE OF PRESCRIPTION [...] Call your local pharmacy or go to http://brands4friends.CURRENT/9T5Yq1j to find one close to you.3.Make use of household items: Use cat litter or old coffee grounds to dispose medications if other options arenot available. Mix your drugs with these household products, seal them in an airtight container andthrow it into the garbage. Call [facility]: [phone] to be sure your drugs can be [...] aware that I should contact my doctor. Patient/Fashion Editor Signature: Date/Time: Relationship to Patient: Witness Name/Signature: Date/Time: [facility]10-21-2024 Hospital Discharge instructions Patient Education 11/29/2023 12:04:12 [...] or swelling over your back or spine 8009-2847 [employer]. [address] [place] [address]. All rights reserved. This information is not intended as a substitute for professional medical care. Always follow yourhealthcare professional's instructions. Follow Up Care 11/29/2023 08:56:34 With:Go to emergency room if symptoms worsen Address:Unknown When:2-4 days With:LARRY THOMAS DO Address: [address] [place] [phone] When:2-4 days [facility] 10-21-2024 Note Discharge Instructions Thank you for allowing [facility] to assist you with your healthcare needs. [...] with LARRY THOMAS DO When:Within 2-4 days Where:[address] [place] [phone] Allergies NKA Medications Please ask your primary [...] or swelling over your back or spine 2513-6413 [employer]. [address] [place] [address], [place] [address]. All rights reserved. This information is not intended as a substitute for professional medical care. Always follow yourhealthcare professional's instructions. Additional Information VACCINATE! IT SAVES LIVES! Members of the community who have not yet received the COVID-19 vaccine and would like to receive it can visit one of [facility] vaccine clinics. There are many vaccine clinic locations within the [facility]. For locations and available times, please visit www.[email or web address].[email or web address]/. It is important to note that some COVID mobile vaccine clinics are held outdoors and may be canceled in rainy or stormy conditions. To learn more about pediatric vaccinations (ages 5-11), we invite you to visit the [facility] webpage. https://www.Webcentrixs.org/pages/7982-Qfoie-Ckozvrefljh-Obxugltbox-Vftng-Bgl stions.htmlTo learn more about the COVID-19 vaccine, we invite you to visit the CDC website for a list of frequently asked questions. https://www.cdc.gov/coronavirus/2019-ncov/vaccines/faq.html [facility] Patient Portal Access Instructions: Stay connected with your healthcare team and access your personal medical information anytime with the [facility] Patient Portal. If you would like a full copy of your medical records please contact the [facility] Medical Records Department Wednesday through Wednesday between 8a.m. and 4:30p.m. Please follow the directions below to access the portal: 1.Access the email account you provided upon registration to the hospital.2.Look for an invitation email from [facility].3.Open the email and access the invitation link: Accept Invitation to [facility]4.Fill in the required alejandro to create your account. Sign into www.Grand Round Table with your username and password that you [...] you will allow to register on the [facility] Patient Portal for access to your information. You can also access the [facility] Patient Portal on the Filter Squad angelica. Simply click on Health Records under MailTime and then click on the Think Upgrade logo. HOW TO SAFELY DISPOSE OF PRESCRIPTION [...] Call your local pharmacy or go to http://brands4friends.CURRENT/7E4Yq8e to find one close to you.3.Make use of household items: Use cat litter or old coffee grounds to dispose medications if other options arenot available. Mix your drugs with these household products, seal them in an airtight container andthrow it into the garbage. Call [facility]: [phone] to be sure your drugs can be [...] aware that I should contact my doctor. Patient/Fashion Editor Signature: Date/Time: Relationship to Patient: Witness Name/Signature: Date/Time: [facility]10-21-2024 Note ORIGINAL HISTORY: Pain COMPARISON: No FINDINGS: [...] Sign Date: 11/29/2023 11:51:51 AM Ordering Provider: [facility]03-06-2024 Note ORIGINAL EXAMINATION: CT OF THE [...] Sign Date: 04/14/2023 10:35:22 AM Ordering Provider: [facility]04-26-2023 Miscellaneous Notes* Telephone Encounter - Brenton Jennings RN - 06/03/2022 11:26 AM EDT Received a request from [facility] for all of Ct's left breast cancer treatment medical records. Faxed the request to medical records on [facility], fax confirmation sheet received. Brenton Jennings RN [facility] Note ORIGINAL EXAMINATION: ULTRASOUND OF THE [...] Date: 04/15/2022 10:15:33 AM Ordering [facility]03-08-2023 Note ORIGINAL EXAMINATION: ULTRASOUND OF [...] Sign Date: 04/15/2022 10:15:33 AM Ordering Provider: [facility]02-28-2023 NoteHNO ID: [id number] Author: Paula Alaniz MD Service: ? Author [...] needle core breast biopsies on 03/23/2022 at [facility]. Findings of fat necrosis, inflammation [...] cancer Kidney Disease Sister Heart disease Brother MS The review of systems data was entered by the nurse and reviewed by ar Nursing Notes: Mini BrookeMATILDE 04/06/2022 9:50 AM [...] of skin c (more content not included)... [facility]02-28-2023 History of Present illness Narrative* Paula Alaniz [...] needle core breast biopsies on 03/23/2022 at [facility]. Findings of fat necrosis, inflammation [...] cancer Kidney Disease Sister Heart disease Brother MS The review of systems data was entered [...] her studies and testing were done at [facility], I have recommended that she proceed with her evaluation/treatment there. The breast radiologists there have recommended wire localization lumpectomy of the left breast. I have told her that I could offer her the same but it would be at [facility]. She states thatshe would prefer [facility] as it is closer to [...] Low Paula Alaniz MD [facility]23 Nurse Note* Mini BrookeMATILDE - 04/06/2022 [...] ago Mini Brooke LPN documented in [facility]Mar[facility]12-[facility]-2022 Note ORIGINAL FROM: [id number] [place], [place] [address] PROCEDURE FOR: CT [address] [place] [address] Home: PID#: [id number] Exam#: [id number] : 1940 Age: 81 TO: ALANNA WRIGHT DO [address] [place], [place] [address] Fax: NO FAX EXAMINATION: ULTRASOUND OF THE [...] ALANNA WRIGHT CLINICAL: MAMMOGRAPHIC DENSITY LEFT BREAST. Operations Planner: JOSIE RUIZ RT(R) RDMS letter sent: Biopsy Recommended BI-RADS 4 and 5 Ultrasound BI-RADS: 4 Suspicious for malignancy [facility]12-15-2022 Note ORIGINAL FROM: [facility] [address] [place] [address] PROCEDURE FOR: CT [address] [place] [address] Home: PID#: [id number] Exam#: [id number] : 1940 Age: 81 TO: ALANNA WRIGHT DO [address] [place], [place] [address] Fax: NO FAX EXAMINATION: ULTRASOUND OF THE [...] ALANNA WRIGHT CLINICAL: MAMMOGRAPHIC DENSITY LEFT BREAST. Operations Planner: JOSIE RUIZ RT(R) RDMS letter sent: Biopsy Recommended BI-RADS 4 and 5 Ultrasound BI-RADS: 4 [facility] Hospital Discharge instructions Patient Education 12/25/2021 17:00:50 Dizziness, Uncertain Cause Dizziness (Uncertain Cause) Dizziness is a common symptom. It may be described as lightheadedness, spinning, or feeling like you are going to faint. Dizziness can have many causes. Be sure to tell the healthcare provider about: All medicines you take, including prescription, foas-hfh-umogcpd, herbs, and supplements Any other symptoms you [...] Chest, arm, neck, back, or jaw pain 4042-8685 [employer]. [address] [place] [address], [place] [address]. All rights reserved. This information is not [...] medicine was given, you may use an tehc-cgj-divrjgx product made for clearingearwax (such as Debrox or Murine Earwax Drops). These contain carbamide peroxide and are available zwht-alq-budbtzz. Lie down with the blocked ear facing [...] ear Headache, neck pain or stiff neck 7431-65[address] [employer] [place] [address]. All rights reserved. This information is not intended as a substitute for professional medical care. Always follow yourhealthcare professional's instructions. Follow Up Care 12/25/2021 15:48:16 With:ALANNA WRIGHT DO Address: [address] [place] [phone] When:2-4 days [facility] 11-17-2022 Note Discharge Instructions Thank you for allowing [facility] to assist you with your healthcare needs. [...] WRIGHT DO When Within 2-4 days Where: [address] [place] [address] [phone] Allergies NKA Medications Please ask your primary [...] about: All medicines you take, including prescription, tgqm-cqk-zbxlfnh, herbs, and supplements Any other symptoms you [...] Chest, arm, neck, back, or jaw pain 8126-6801 [employer]. [address] [place] [address], [place] [address]. All rights reserved. This information is not [...] medicine was given, you may use an jbsw-tru-akxxqqc product made for clearingearwax (such as Debrox or Murine Earwax Drops). These contain carbamide peroxide and are available gqaw-zle-qshjpmu. Lie down with the blocked ear facing [...] ear Headache, neck pain or stiff neck 6166-1855 [employer]. [address] [place] [address], [place] [address]. All rights reserved. This information is not intended as a substitute for professional medical care. Always follow yourhealthcare professional's instructions. Additional Information VACCINATE! IT SAVES LIVES! Members of the community who have not yet received the COVID-19 vaccine and would like to receive it can visit one of [facility] vaccine clinics. There are many vaccine clinic locations within the [facility]. For locations and available times, please visit www.[email or web address]. It is important to note that some COVID mobile vaccine clinics are held outdoors and may be canceled in rainy orstormy conditions. To learn more about pediatric vaccinations (ages 5-11), we invite you to visit the [facility] webpage. https://www.[facility]s.org/pages/2105-Cduog-Tofkmflyqsw-Yeftkyeplr-Eqbir-Mmi stions.htmlTo learn more about the COVID-19 vaccine, we invite you to visit the [facility] website for a list of frequently asked questions. https://[email or web address]/assets/Ywbziiuf-rcg-Qiitadxr/cjnpj-Ezvbwiq-Rwujnfyije _Asked-Questions.pdf [facility] Patient Portal Access Instructions: Stay connected with your healthcare team and access your personal medical information anytime with the [facility] Patient Portal. If you would like a full copy of your medical records please contact the [facility] Medical Records Department Wednesday through Wednesday between 8a.m. and 4:30p.m. Please follow the directions below to access the portal: 1.Access the email account you provided upon [facility] the [facility].2.Look for an invitation email from [facility].3.Open the email and access the invitation link: Accept Invitation to [facility]4.Fill in the required alejandro to create your account. Sign into www.Grand Round Table with your username and password that you [...] you will allow to register on the [facility] Patient Portal for access to your information. You can also access the [facility] Patient Portal on the Athersys. Simply click on Health Records under Viacorta and then click on the Think Upgrade logo. HOW TO SAFELY DISPOSE OF PRESCRIPTION [...] Call your local pharmacy or go to http://brands4friends.CURRENT/5Y0Pi0a to find one close to you.3.Make use of household items: Use cat litter or old coffee grounds to dispose medications if other options arenot available. Mix your drugs with these household products, seal them in an airtight container andthrow it into the garbage. Call [facility]: [phone] to be sure your drugs can be [...] aware that I should contact my doctor. Patient/Fashion Editor Signature: Date/Time: Relationship to Patient: Witness Name/Signature: Date/Time: [facility]10-29-2022 Hospital Discharge instructions Patient Education 12/06/2021 14:31:46 Dizziness, Vjwv-wv-Cvbh Dizziness Dizziness is a common problem. It [...] is fine. If you need to clinical review nurse one place for a long time, move [...] Watch your dizziness for any changes. Take lege-bym-hvjapwy and prescription medicines only as told by [...] 01/14/2012 Document Revised: 01/28/2018 Document Reviewed: 02/11/2017 [employer] Patient Education 2020 NuORDER. 12/06/2021 14:31:38 Fall Prevention and Home Safety, Bzvl-pm-Rspm Fall Prevention and Home Safety Falls cause [...] Document Reviewed: 04/26/2012 ExitCare Patient Information 2015 [employer], [facility]. This information is not intended to replace advicegiven to you by your health care provider. Make sure you discuss any questions you have with your health care provider. Follow Up Care 12/03/2021 14:18:30 With:[facility], [phone] Address:Unknown When:1-2 days With:ALANNA WRIGHT DO Address: [address] [place] [phone] When:1-2 days Comments:Please call the office to schedule a follow up appointment [facility] 10-29-2022 Note Discharge Instructions Thank you [...] Bilateral w/ Fer 12/12/2021 03:00 PM EDT [facility] Follow Up Appointments Follow Up with [facility], [phone] When Within 1-2 days Follow Up with ALANNA WRIGHT DO When Within 1-2 days Why: Please call the office to schedule a follow up appointment Where: [address] [place] [phone]- The Following Activity and Diet Have Been [...] is fine. If you need to clinical review nurse one place for a long time, move [...] Watch your dizziness for any changes. Take iuwk-vjx-phxwxaf and prescription medicines only as told by [...] 01/14/2012 Document Revised: 01/28/2018 Document Reviewed: 02/11/2017 [employer] Patient Education 2020 [employer] Fall Prevention and Home Safety Falls [...] Document Reviewed: 04/26/2012 ExitCare Patient Information 2015 [employer] [facility]. This information is not intended to replace advicegiven to you by your health care provider. Make sure you discuss any questions you have with your health care provider. Additional Information VACCINATE! IT SAVES LIVES! Members of the community who have not yet received the COVID-19 vaccine and would like to receive it can visit one of [facility] vaccine clinics. There are many vaccine clinic locations within the [facility]. For locations and available times, please visit https://[email or web address]/. It is important to note that some COVID mobile vaccine clinics are held outdoors and may be canceled in rainy or stormy conditions. To learn more about pediatric vaccinations (ages 5-11), we invite you to visit the [facility] webpage. https://www.[facility].org/pages/7713-Ebnhz-Ukhtpziedup-Vavbgertjl-Yqzip-Dfb stions.htmlTo learn more about the COVID-19 vaccine, we invite you to visit the [facility] website for a list of frequently asked questions. https://[email or web address]/assets/Zqwjcpuk-biy-Dxjcfstm/rebjy-Shihtxd-Vpqmfaaxos _Asked-Questions.pdf [facility] Patient Portal Access Instructions: Stay connected with your healthcare team and access your personal medical information anytime with the [facility] Patient Portal.If you would like a full copy of your medical records, please contact the [facility] Medical Records Department, Wednesday through Wednesday between 8a.m. and 4:30p.m. Please follow the directions below to access the portal: 1.Access the email account you provided upon [facility].2.Look for an invitation email from [facility].3.Open the email and access the invitation link: Accept Invitation to [facility]4.Fill in the required alejandro to create your account. Sign into www.Grand Round Table with your username and password that you [...] you will allow to register on the [facility] Patient Portal for access to your information. You can also access the [facility] Patient Portal on the Filter Squad angelica. Simply click on Health Records under MailTime and then click on the [facility] logo. [...] Call your local pharmacy or go to http://bit.CURRENT/5Q9Jf3v to find one close to you.3.Make use of household items: Use cat litter or old coffee grounds to dispose medications if other options arenot available. Mix your drugs with these household products, seal them in an airtight container andthrow it into the garbage. Call [facility]: [phone] to be sure your drugs can be [...] CHART COPY. Signatures Patient Education Materials Dizziness, Nrue-dj-Eemh Fall Prevention and Home Safety, Iynf-ef-Bxia Medication Leaflets My discharge plan and instructions have been reviewed and explained to me and I,CT DALTON understand my current condition and have read and understand these discharge instructions. I have received a written copy of the plan/instructions. If I have questions, I am aware that I should contact my doctor. Patient/Fashion Editor Signature: Date/Time: Relationship to Patient: Witness Name/Signature: Date/Time: [id number] Note Discharge Instructions Thank you for allowing [...] Bilateral w/ Fer 12/12/2021 03:00 PM EDT [facility] Follow Up Appointments Follow Up with [facility], [phone] When Within 1-2 days Follow Up with ALANNA WRIGHT DO When Within 1-2 days Why: Please call the office to schedule a follow up appointment Where: [address] [place] [address] [phone] The Following Activity and Diet Have Been [...] to receive it can visit one of [facility] vaccine clinics. There are many vaccine clinic locations within the [facility]. For locations and available times, please visit https://[email or web address]/. It is important to note that some COVID mobile vaccine clinics are held outdoors and may be canceled in rainy or stormy conditions. To learn more about pediatric vaccinations (ages 5-11), we invite you to visit the [facility] webpage. https://www.[facility].org/pages/2731-Tsolg-Ezzmagfhjmw-Grjupdcxrx-Fgsdv-Fqk stions.htmlTo learn more about the COVID-19 vaccine, we invite you to visit the [facility] website for a list of frequently asked questions. https://fullertonPediatric Bioscience/assets/Srhruvqs-xgd-Evuvopgt/rbete-Huzytny-Mexocofuue _Asked-Questions.pdf [facility] Patient Portal Access Instructions: Stay connected with your healthcare team and access your personal medical information anytime with the [facility] Patient Portal.If you would like a full copy of your medical records, please contact the [facility] Medical Records Department, Wednesday through Wednesday between 8a.m. and 4:30p.m. Please follow the directions below to access the portal: 1.Access the email account you provided upon registration [facility].2.Look for an invitation email from [facility].3.Open the email and access the invitation link: Accept Invitation to [facility]4.Fill in the required alejandro to create your account. Sign into www.[email or web address] Panjur with your username and password that you [...] you will allow to register on the [facility] Patient Portal for access to your information. You can also access the [facility] Patient Portal on the Filter Squad angelica. Simply click on Health Records under InfoNowData and then click on the [facility] logo. [...] Call your local pharmacy or go to http://bit.CURRENT/7Q2Oa4c to find one close to you.3.Make use of household items: Use cat litter or old coffee grounds to dispose medications if other options arenot available. Mix your drugs with these household products, seal them in an airtight container andthrow it into the garbage. Call [facility]: [phone] to be sure your drugs can be [...] aware that I should contact my doctor. 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 Unsteady gait (R26.81 - ICD-10-CM) 2. Dizziness (R42 - ICD-10-CM) Dizziness ([id number] - PNED) HTN - Hypertension ([id number] - PNED) Additional Orders: Ordered: atenolol 25 mg oral tablet,Dose : 25 mg = 1 tab(s), Oral, qDay, # 30 tab(s), 0 Refill(s), Pharmacy: [facility]/pharmacy #[id number], 160, cm, 12/03/21 21:46:00 EDT, [...] CT head, chest x-ray, MRI brain, TTE, Manilla- Hallpike unremarkable.ECG showed LBBB, no prior EKG [...] 100 mg daily, hydralazine 25 mg daily, davwlzefvyizxfrjeos27 mg daily, lisinopril 20 mg daily. In [...] to schedule a follow up appointment Where: [address] [place] [phone]- Follow Up Appointments No qualifying data available. Follow Up Labs/Studies Discharge Labs No Follow-up Labs Discharge Studies No Follow-up Studies Discharge Diet No qualifying data available. Discharge Activity No qualifying data available. Readmission Risk/Palliative Score No qualifying data available. Digitally Signed by CODY RILEY MD on 12/06/2021 11:43 AM [facility] HospitalDuusmeeu01-00-8711 Discharge summary Date of Service 12/06/21 Discharge Diagnosis 1. Unsteady gait (R26.81 - ICD-10-CM) 2. Dizziness (R42 - ICD-10-CM) Dizziness ([id number] - PNED) HTN - Hypertension ([id number] - PNED) Additional Orders: Ordered: atenolol 25 mg oral tablet,Dose : 25 mg = 1 tab(s), Oral, qDay, # 30 tab(s), 0 Refill(s), Pharmacy: [facility]/pharmacy #[id number], 160, cm, 12/03/21 21:46:00 EDT, Height Ordered: [...] CT head, chest x-ray, MRI brain, TTE, Manilla- Hallpike unremarkable.ECG showed LBBB, no prior EKG [...] 100 mg daily, hydralazine 25 mg daily, kotantdwthgwpfnzqni55 mg daily, lisinopril 20 mg daily. In [...] to schedule a follow up appointment Where: [address] [place] [phone]- Follow Up Appointments No qualifying data available. Follow Up Labs/Studies Discharge Labs No Follow-up Labs Discharge Studies No Follow-up Studies Discharge Diet No qualifying data available. Discharge Activity No qualifying data available. Readmission Risk/Palliative Score No qualifying data available. Digitally Signed by CODY RILEY MD on 12/06/2021 11:43 AM [facility] HospitalRmxgobhk41-18-3409 Note Chief Complaint Transition plan Transitional Action Points Currently is transition over to [facility] in [place] is able to accept Patient echo explained [...] are recommending SNF. She was excepted by [facility] in [place], will require COVID screen prior to transfer. 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 I Magdalena Ashley PECAN CLEANER, personally performed the services described in this documentation, as described by Gladys Betancourt LPN in my presence and it is both accurate and complete. This document is transcribed using voice recognition software may contain typographical errors. Digitally Signed by MAGDALENA ASHLEY on 12/06/2021 09:45 AM [facility] HospitalRqjmufbu76-82-1880 Note ORIGINAL EXAMINATION: TWO XRAY VIEWS OF [...] 12/06/2021 12:06:38 AM Ordering Provider: FRIEDA HOLLAND [facility] HospitalYsgpbmpb38-45-2336 Note Date of Service 12/05/2021 Subjective 81-year-old [...] roomrequired assistance which is not patient's baseline. Manilla-Hallpike was performed in ED documented asnegative. Patient was transfer from [place] to [place] for further cardiovascular work-up. Orthostatics performed and [...] Zara no answer, called patient's son Ang [phone] Who states that patient's mental status has [...] MD on 12/05/2021 06:41 PM [facility] HospitalBxuxhylj52-29-9273 Note ORIGINAL EXAMINATION: TWO XRAY VIEWS OF [...] Sign Date: 12/06/2021 12:06:38 AM Ordering Provider: [facility]10-28-2022 Note ORIGINAL EXAMINATION: MR Brain [...] pathology. 2. Moderate parenchymal volume loss and mkoe-yk-irhxhjbw chronic microvascular white matter ischemic disease. Interpreted by: Alanna Chin MD Preliminary Report By: Alanna Chin MD Electronically signed By Alanna Chin MD Dictated Date: 12/05/2021 1:36:40 PM Prelim Date: 12/05/2021 1:40:15 PM Sign Date: 12/05/2021 1:40:15 PM Ordering Provider: [facility]10-28-2022 Note ORIGINAL EXAMINATION: MR Brain with [...] pathology. 2. Moderate parenchymal volume loss and kmda-eg-nwyxsypf chronic microvascular white matter ischemic disease. Interpreted by: Alanna Chin MD Preliminary Report By: Alanna Chin MD Electronically signed By Alanna Chin MD Dictated Date: 12/05/2021 1:36:40 PM Prelim Date: 12/05/2021 1:40:15 PM Sign Date: 12/05/2021 1:40:15 PM Ordering Provider: [facility]10-28-2022 Note Date 12/05/2021 Chief complaint Transition plan. [...] Physical therapy notes on 12/04 recommending SNF. 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 Manilla-Hallpike was performed in ED documented asnegative. Patient was transfer from [place] to [place] for further cardiovascular work-up. Orthostatics performed and negative. On review of telemetry patient with episodes of bradycardia will decre ase atenolol. Patient ordered for MRI TTE and carotid duplex. PT/OT evaluation pending. Patient seen and examined this morning Patient does appear to have advanced dementia She does know that she is in [place] but speaks in a roundabout way about [...] bedside counseling/coordinating care Digitally Signed by FRIEDA OHLLAND MD on 12/04/2021 03:40 PM [facility] HospitalNcoeyqqt62-30-6001 Note Chief Complaint Transition Plan. 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 I Magdalena Ashley PECAN CLEANER, personally performed the services described in this documentation, as described by Danielle CARCAMO in my presence and it is both accurate and complete. This document transcribed using voice recognition software may contain typographical errors. Digitally Signed by MAGDALENA ASHLEY on 12/04/2021 02:59 PM [facility] HospitalBbxyxfeo41-03-8356 History and physical note [facility] Hospitalist History and Physical Date of Admission: 12/03/2021 Chief complaint: Dizziness History of present illness: History is taken from talking with the patient. Patient was accepted asa transfer from [place] emergency department by my colleague. 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 Tubal ligation Family history: Mother: High blood [...] Rate18(DEC 03 21:30)16(DEC 03 14:53)20(DEC 03 14:26) YMP687(DEC 03 21:30)136(DEC 03 21:30)H 187(DEC 03 16:20) [...] Appearance (POC): Clear (12/03/21 16:12:00) Urine Specific [place] (POC): <=1.005 Abnormal (12/03/21 16:12:00) Urine Glucose [...] Patient was accepted as a transfer from [facility] emergency department by my colleague [...] MD on 12/03/2021 09:55 PM [facility] HospitalSqvvubjr33-86-1889 Note ORIGINAL EXAMINATION: CT OF THE HEAD [...] Sign Date: 12/03/2021 4:02:30 PM Ordering Provider: [facility]10-26-2022 Note ORIGINAL EXAMINATION: CT OF THE HEAD [...] Sign Date: 12/03/2021 4:02:30 PM Ordering Provider: [facility]10-26-2022 Evaluation + Plan noteExtracted from: Title:Clinical Document Author:ANA WILSON MD Date:12/03/21 [facility] Hospitalist History and Physical Date of Admission: 12/03/2021 Chief complaint: Dizziness History of present illness: History is taken from talking with the patient. Patient was accepted as a transfer from [place] emergency department by my colleague. 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 Tubal ligation Family history: Mother: High blood [...] Rate18(DEC 03 21:30)16(DEC 03 14:53)20(DEC 03 14:26) SFN327(DEC 03 21:30)136(DEC 03 21:30)H 187(DEC 03 16:20) [...] Appearance (POC): Clear (12/03/21 16:12:00) Urine Specific [place] (POC): <=1.005 Abnormal (12/03/21 16:12:00) Urine Glucose [...] Patient was accepted as a transfer from [facility] emergency department by my colleague [...] Screening Bilateral w/ Fer 12/12/21 [facility] Discharge summary Author Jean Claude Harry [facility] Note Date/Time July 24, 2024 3:52 am [facility] Medical Records Department [address] [place] [address] Emergency Department Summary 07/24/24 MR#: [id number] Acct: [id number] Name: CT DALTON Rep #:[id number] : 1940 83 From: Jean Claude Harry [...] Prior similar symptoms: No Recent Illness[facility] Medical History Malignant neoplasm of breast [...] mg PO DAILY 04/20/17 04/27/17 08:00 History mlqwvwanxpow-Du-obkp-minerals 1 ea PO DAILY 04/20/17 U nknown [...] range of motion. 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 Neurologically she is awake and alert. [...] Right hip moderate degenerative changes. [facility] [address] Right hip and pelvis x-ray, 3 views, [...] obviously lying in bed. Tylenol for pain. [place] as needed for pain also. Print Language: St Helenian Disposition Disposition: Home, Self Care What to do if you have Problems For any increased pain, shortness of breath, bleeding, nausea or vomiting, chestpain, or any unexpected problems, contact your Primary Care Provider. Call [facility] ([phone]) or report to the closest Emergency Room. Call 911 if necessary. 07/24/24 0232 <Electronically signed by Jean Claude Harry MD> Cosigner Signature (if applicable): CC: Dr. Jairon Medel MD ~ Signed [facility] Work Phone: Evaluation + Plan note Future Appointments Appointment Date:05/05/2021 09:00:00 AM Scheduled Provider:ALANNA WRIGHT DO Location:[facility] [place] Appointment Type:PC OV [facility] Evaluation + Plan note Future Appointments Appointment Date:11/06/2021 08:30:00 AM Scheduled Provider:ALANNA WRIGHT DO Location:[facility] [place] Appointment Type:PC Wellness Medicare with Labs Future Scheduled Tests Radiology* XR Humerus Minimum 2 Views Right 05/05/21 [facility] Evaluation + Plan note Future Appointments Appointment Date:01/15/2022 02:00:00 PM Scheduled Provider: Location:[facility] Appointment Type:MA Mammogram Screening Bilateral w/ Fer Appointment Date:02/25/2022 10:00:00 AM Scheduled Provider:LARRY THOMAS DO Location:[facility] [place] Appointment Type:PC PECAN CLEANER Appointment Date:03/13/2022 10:30:00 AM Scheduled Provider:ALANNA WRIGHT DO Location: [place] Appointment Type:PC OV Future Scheduled Tests Radiology* MA Mammo Screening Bilateral w/ Fer 01/15/22 [facility] Evaluation + Plan note Future Appointments Appointment Date:02/25/2022 10:00:00 AM Scheduled Provider:LARRY THOMAS DO Location:[facility] [place] Appointment Type:PC PECAN CLEANER Appointment Date:03/13/2022 10:30:00 AM Scheduled Provider:ALANNA WRIGHT DO Location: [place] Appointment Type:PC OV Future Scheduled Tests Radiology* US Biopsy Breast Left 1st Lesion 01/22/22 [facility] evaluation + Plan note Future Appointments Appointment Date:03/05/2022 10:00:00 AM Scheduled Provider:LARRY THOMAS DO Location:[place] Appointment Type:PC PECAN CLEANER Appointment Date:03/13/2022 10:30:00 AM Scheduled Provider:ALANNA WRIGHT DO Location:[facility] [place] Appointment Type:PC OV Appointment Date:03/23/2022 01:00:00 PM Scheduled Provider: Location:[facility] Appointment Type:US Biopsy Breast Left 1st Lesion Future Scheduled Tests Radiology* US Biopsy Breast Left 1st Lesion 03/23/22 [facility] evaluation + Plan note Future Appointments [...] 1st Lesion 03/23/22 * US Renal 03/09/22 [facility] [place]aluation + Plan note Future Appointments Appointment Date:04/16/2022 04:30:00 PM Scheduled Provider:LARRY THOMAS DO Location:[place] Appointment Type:PC OV Future Scheduled Tests Laboratory* Hepatic Function Panel 04/13/22 Radiology* US Renal 03/09/22 [facility] evaluation + Plan note Future Appointments Appointment Date:04/15/2022 07:30:00 AM Scheduled Provider: Location:[facility] Appointment Type:US Renal Appointment Date:04/16/2022 04:30:00 PM Scheduled Provider:LARRY THOMAS DO Location:[place] Appointment Type:PC OV Appointment Date:05/28/2022 10:00:00 AM Scheduled Provider:ANISA GOMEZ MD Location:[facility] [place] Appointment Type:LIYAH PECAN CLEANER Future Scheduled Tests Radiology* US Renal 04/15/22 [facility] evaluation + Plan note Future Appointments Appointment Date:04/16/2022 04:30:00 PM Scheduled Provider:LARRY THOMAS DO Location:[place] Appointment Type:PC OV Appointment Date:05/28/2022 10:00:00 AM Scheduled Provider:ANISA GOMEZ MD Location:[facility] [place] Appointment Type:BS PECAN CLEANER [facility] Evaluation + Plan note Future Appointments Appointment Date:07/16/2022 03:30:00 PM Scheduled Provider:ANISA GOMEZ MD Location:[facility] [place] Appointment Type:BS OV Post Op Appointment Date:09/11/2022 11:00:00 AM Scheduled Provider:LARRY THOMAS DO Location:[facility] [place] Appointment Type:PC Wellness Medicare [facility] Evaluation + Plan note Future Appointments Appointment Date:12/14/2022 10:00:00 AM Scheduled Provider: Location:[place] Appointment Type:BD Bone Density DEXA Axial Skeleton Appointment Date:03/16/2023 10:00:00 AM Scheduled Provider:LARRY THOMAS DO Location:[facility] [place] Appointment Type:PC OV Future Scheduled Tests Radiology* BD Bone Density DEXA Axial Skeleton 12/14/22 [facility] Evaluation + Plan note Future Appointments Appointment Date:06/15/2023 10:30:00 AM Scheduled Provider:LARRY THOMAS DO Location:[facility] [place] Appointment Type:PC OV Diagnostic Tests Pending * Methylmalonic Acid, Serum 04/07/23 [facility] Evaluation + Plan note Future Appointments Appointment Date:06/15/2023 10:30:00 AM Scheduled Provider:LARRY THOMAS DO Location:[facility] [place] Appointment Type:PC OV [facility] Evaluation + Plan note Future Appointments Appointment Date:12/15/2023 10:00:00 AM Scheduled Provider:LARRY THOMAS DO Location:[facility] [place] Appointment Type:PC OV [facility] Evaluation + Plan note Future Appointments Appointment Date:12/29/2023 01:30:00 PM Scheduled Provider:LARRY THOMAS DO Location:[facility] [place] Appointment Type:PC OV Diagnostic Tests Pending * Vitamin B12 Level 12/15/23 * Folate Level 12/15/23 Future Scheduled Tests Laboratory* Calcium Level Ionized 12/15/23 * Urine Culture 12/15/23 Radiology* XR Spine Lumbar W/Obliques 4 Views 12/15/23 [facility] Evaluation + Plan note Future Appointments Appointment Date:12/29/2023 01:30:00 PM Scheduled Provider:LARRY THOMAS DO Location:[facility] [place] Appointment Type:PC OV Future Scheduled Tests Laboratory* Calcium Level Ionized 12/15/23 Radiology* XR Chest 2 Views (PA & Lateral) 12/19/23 * XR Spine Lumbar W/Obliques 4 Views 12/15/23 [facility] Evaluation + Plan note Future Appointments Appointment Date:12/29/2023 01:30:00 PM Scheduled Provider:LARRY THOMAS DO Location:[facility] [place] Appointment Type:PC OV Future Scheduled Tests Laboratory* Calcium Level Ionized 12/15/23 [facility] Evaluation + Plan note Future Appointments Appointment Date:02/16/2024 09:30:00 AM Scheduled Provider:LARRY THOMAS DO Location:[facility] [place] Appointment Type:PC OV Future Scheduled Tests Radiology* US Bladder 12/29/23 [facility] Evaluation + Plan note Future Appointments Appointment Date:02/16/2024 09:30:00 AM Scheduled Provider:LARRY THOMAS DO Location:[facility] [place] Appointment Type:PC OV [facility] Evaluation note* Diagnosis Abnormal ultrasound of breast Other (abnormal) findings on radiological examination of breast History of left breast cancer [facility] assessment information availableWKettering [facility] Work Phone: Hospital course Narrative No data available for this section [facility] Hospital Discharge instructions No data available for this section [facility] Hospital Discharge instructions Additional Instructions She has a superior pubic ramus fracture which is a pelvis fracture. These are not treated with surgery. They generally heal over weeks to months. She can do activity as tolerated. She may walk or be in a wheelchair or obviously lying in bed. Tylenol for pain. [place] as needed for pain also.[facility] Work Phone: Progress note No data available for this section [facility] Reason for referral (narrative)No reason for referral information availableWKettering Health Hamilton Work Phone: Chief Complaint Chief Complaint Description [...] Visit Chief Complaint Admit Date ADMISSION EXAM PECAN CLEANER February 24, 2024 3 :20pm USP LAB WORK February 28, 2024 5:00am ADMISSION EXAM February 29, 2024 1 1:54am USP LAB WORK March 27 5:00am LABWORK April 03, 2024 5:00am NEW CONCERN April 03, 2024 2:22pm LABWORK May 01, 2024 5:0 0am Chief Complaint Admit Date ADMISSION EXAM PECAN CLEANER February 24, 2024 3 :20pm USP LAB WORK February 28, 2024 5:00am ADMISSION EXAM February 29, 2024 1 1:54am USP LAB WORK March 27 5:00am LABWORK April 03, 2024 5:00am NEW CONCERN April 03, 2024 2:22pm MONTHLY EXAM April 11, 2024 5:02 pm NEW CONCERN April 26, 2024 6:3 9pm LABWORK May 01, 2024 5:0 0am USP LAB WORK May 15, 2024 4: 00am Chief Complaint Admit Date ADMISSION EXAM PECAN CLEANER February 24, 2024 3 :20pm USP LAB WORK February 28, 2024 5:00am ADMISSION EXAM February 29, 2024 1 1:54am USP LAB WORK March 27 5:00am LABWORK April 03, 2024 5:00am NEW CONCERN April 03, 2024 2:22pm MONTHLY EXAM April 11, 2024 5:02 pm NEW CONCERN April 26, 2024 6:3 9pm LABWORK May 01, 2024 5:0 0am USP LAB WORK May 15, 2024 4: 00am LABWORK May 29, 2024 5:0 0am Chief Complaint Admit Date ADMISSION EXAM PECAN CLEANER February 24, 2024 3 :20pm USP LAB WORK February 28, 2024 5:00am ADMISSION EXAM February 29, 2024 1 1:54am USP LAB WORK March 27 5:00am LABWORK April 03, 2024 5:00am NEW CONCERN April 03, 2024 2:22pm MONTHLY EXAM April 11, 2024 5:02 pm NEW CONCERN April 26, 2024 6:3 9pm LABWORK May 01, 2024 5:0 0am USP LAB WORK May 15, 2024 4: 00am USP LAB WORK May 24, 2024 5 :00am LABWORK May 29, 2024 5:0 0am Chief Complaint Admit Date USP LAB WORK March 27 5:00am LABWORK April 03, 2024 5:00am NEW CONCERN April 03, 2024 2:22pm MONTHLY EXAM April 11, 2024 5:02 pm NEW CONCERN April 26, 2024 6:3 9pm LABWORK May 01, 2024 5:0 0am USP LAB WORK May 15, 2024 4: 00am USP LAB WORK May 24, 2024 5 :00am LABWORK May 29, 2024 5:0 0am USP LAB WORK June 26, 2024 4:0 0am fall July 24, 2024 1:23 am Chief Complaint Admit Date USP LAB WORK March 27 5:00am LABWORK April 03, 2024 5:00am NEW CONCERN April 03, 2024 2:22pm MONTHLY EXAM April 11, 2024 5:02 pm NEW CONCERN April 26, 2024 6:3 9pm LABWORK May 01, 2024 5:0 0am USP LAB WORK May 15, 2024 4: 00am USP LAB WORK May 24, 2024 5 :00am LABWORK May 29, 2024 5:0 0am USP LAB WORK June 26, 2024 4:0 0am Chief Complaint Admit Date LABWORK April 03, 2024 5:00am NEW CONCERN April 03, 2024 2:22pm MONTHLY EXAM April 11, 2024 5:02 pm NEW CONCERN April 26, 2024 6:3 9pm LABWORK May 01, 2024 5:0 0am Monthly Exam May 12, 2024 2:03 pm USP LAB WORK May 15, 2024 4: 00am USP LAB WORK May 24, 2024 5 :00am LABWORK May 29, 2024 5:0 0am USP LAB WORK June 26, 2024 4:0 0am fall July 24, 2024 1:23 am Chief Complaint Admit Date LABWORK April 03, 2024 5:00am NEW CONCERN April 03, 2024 2:22pm MONTHLY EXAM April 11, 2024 5:02 pm NEW CONCERN April 26, 2024 6:3 9pm LABWORK May 01, 2024 5:0 0am Monthly Exam May 12, 2024 2:03 pm USP LAB WORK May 15, 2024 4: 00am New Concern May 23, 2024 5:0 2pm USP LAB WORK May 24, 2024 5 :00am LABWORK May 29, 2024 5:0 0am USP LAB WORK June 26, 2024 4:0 0am fall July 24, 2024 1:23 am Chief Complaint Admit Date NEW CONCERN April 26, 2024 6:3 9pm LABWORK May 01, 2024 5:0 0am Monthly Exam May 12, 2024 2:03 pm USP LAB WORK May 15, 2024 4: 00am New Concern May 23, 2024 5:0 2pm USP LAB WORK May 24, 2024 5 :00am LABWORK May 29, 2024 5:0 0am USP LAB WORK June 26, 2024 4:0 0am MONTHLY EXAM June 27, 2024 4:00p m fallJuly 24, 2024 1:23 am Chief Complaint Admit Date LABWORK May 01, 2024 5:0 0am Monthly Exam May 12, 2024 2:03 pm USP LAB WORK May 15, 2024 4: 00am New Concern May 23, 2024 5:0 2pm USP LAB WORK May 24, 2024 5 :00am LABWORK May 29, 2024 5:0 0am USP LAB WORK June 26, 2024 4:0 0am MONTHLY EXAM June 27, 2024 4:00p m fall July 24, 2024 1:23 am NEW CONCERN July 24, 2024 2:45 pm LABWORK August 21, 2024 5:00 am Chief Complaint Admit Date USP LAB WORK May 24, 2024 5 :00am LABWORK May 29, 2024 5:0 0am USP LAB WORK June 26, 2024 4:0 0am MONTHLY EXAM June 27, 2024 4:00p m fall July 24, 2024 1:23 am NEW CONCERN July 24, 2024 2:45 pm Monthly Exam August 08, 2024 8:00p m LABWORK August 21, 2024 5:00 am LABWORK August 28, 2024 5:00 am Chief Complaint Admit Date fall July 24, 2024 1:23 am NEW CONCERN July 24, 2024 2:45 pm Monthly Exam August 08, 2024 8:00p m LABWORK August 21, 2024 5:00 am LABWORK August 28, 2024 5:00 am LABWORK September 18, 2024 5: 00am USP LABWORK October 16, 2024 5:00am Additional Source Comments Reason for Visit (unrecogniz ed section and content) Reason For Visit Description Follow-up by complaint Preliminary reason f or visit data, not yet signed by the author as of lower back pain Reason Comments Consult Left breast consult Reason Comments Request for medical records INFORMATION SOURCE (unrecogn ized section and content) DATE CREATED AUTHOR 03/11/2018 [facility] DATE CREATED AUTHOR AUTHOR'S ORGANIZ ATION 06/04/2022 [facility] DATE CREATED AUTHOR AUTHOR'S ORGANIZ ATION 07/09/2023 [facility] ([place]) DATE CREATED AUTHOR AUTHOR'S ORGANIZ ATION 02/24/2024 [facility] [facility] DATE CREATED AUTHOR AUTHOR'S ORGANIZ ATION 03/28/2024 [facility] DATE CREATED AUTHOR AUTHOR'S ORGANIZ ATION 11/20/2024 [facility] Care Team (unrecognized sect ion and content) Care Team Personnel Name: ALANNA WRIGHT DO Position: P4 Physician - Primary Care Member Role: Primary Care Physician Address: Address: [address] [place] [address] Name: Venkata Alegria RN Position: ED RN Member Role: ED RN Name: BLANCA ARREITA DO Position: P4 ED Physician II Member Role: ED Physician Address: Address: [address] [place] [address]- [place] Care Team Related Persons Name: ZARA DALTON Address: [place] [address] [place], [place] [id number] Care Team Personnel Name: ALANNA WRIGHT DO Position: P4 Physician - Primary Care Member Role: Primary Care Physician Address: Address: [address] [place] [address] Name: Danette Busch RN Position: AO RN Member Role: RN Name: INES DENNIS MD Position: ED Physician Member Role: Attending Physician Address: Address: [facility] [address] [place] [address]- [place] Care Team Related Persons Name: ZARA DALTON Address: Home [address] [place], [place] [phone] [place] Care Team Personnel Name: ALANNA WRIGHT DO Position: P4 Physician - Primary Care Member Role: Primary Care Physician Address: Address: [address] [place] [address]- [place] Care Team Related Persons Name: ZARA DALTON Address: Home [address] [place], [place] [id number] [place] Care Team Personnel Name: LARRY THOMAS DO Position: P4 Physician - Primary Care Member Role: Primary Care Physician Address: Address: [address] [place] [id number]- [place] Care Team Related Persons Name: ZARA DALTON Address: Home [address] [place], [place] [id number] [place] Care Team Personnel Name: LARRY THOMAS DO Position: P4 Physician - Primary Care Member Role: Primary Care Physician Address: Address: [address] [place] [address]- [place] Care Team Related Persons Name: ZARA DALTON Address: Home [address] [place], [place] [phone] [place] Care Team Personnel Name: LARRY THOMAS DO Position: P4 Physician - Primary Care Member Role: Primary Care Physician Address: Address: [address] [place] [address]- [place] Care Team Related Persons Name: ZARA DALTON Address: Home [address] [place], [place] [phone] [place] Care Team Personnel Name: LARRY THOMAS DO Position: P4 Physician - Primary Care Member Role: Primary Care Physician Address: Address: [address] [place] [address] [place] Care Team Related Persons Name: ZARA DALTON Address: Home [address] [place], [place] [phone] [place] Care Team Personnel Name: LARRY THOMAS DO Position: P4 Physician - Primary Care Member Role: Primary Care Physician Address: Address: [facility] [place] [address]- Care Team Related Persons Name: ZARA DALTON Address: Home [address] [place], [place] [phone] [place] Source Comments (unrecognize d section and content) In the event this informatio n is protected by the Federal Confidentiality of Alcohol and Drug Abuse Patient Records regulations: The Federal rules restrict any use of the information to criminally investigate or prosecute any alcohol or drug abuse patient.[facility] the event this information is protected by the Federal Confidentiality of Alcohol and Drug Abuse Patient Records regulations: The Federal rules restrict any use of the information to criminally investigate or prosecute any alcohol or drug abuse patient.[facility] Care Teams (unrecognized sec tion and [...] 2024 End: April 03, 2024 Jane Barth PECAN CLEANER, PECAN CLEANER-C Attending Provider Active Start: April 03, 2024 [...] 2024 End: April 26, 2024 Jane Barth PECAN CLEANER, PECAN CLEANER-C Attending Provider Active Start: April 26, 2024 [...] July 24, 2024 End: July 24, 2024 Master Carpenter Relationship Specialty Start Date End Date Larry Thomas DO [address] [place] [address] PCP - General Family Medicine 03/30/22 Lachelle Cervantes MD, [address] [place], [place] [phone] Physician Radiation Oncology 05/11/17 Kesha Davidson, RN Specialty Digital Media Designer Oncology 07/28/17 Master Carpenter Relationship Specialty Start Date End Date Larry ThomasDO [address] [place] [address] PCP - General Family Medicine 03/30/22 Lachelle Cervantes MD, [address] [place] [address] Physician Radiation Oncology 05/11/17 Kesha Davidson, RN Specialty Digital Media Designer Oncology 07/28/17 Team Status: Active Member Role Status Dates Dr. Warner Leos Jr., MD Family Provider Active Dr. Warner Leos Jr., MD Primary Care Provider Active Team Status: Inactive Member Role Status Dates Dr. Warner Leos Jr., MD Primary Care Provider Active Start: February 24, 2024 End: February 24, 2024 Jane Barth PECAN CLEANER, PECAN CLEANER-C Attending Provider Active Start: February 24, 2024 [...] 2024 End: May 12, 2024 Jane Barth PECAN CLEANER, PECAN CLEANER-C Attending Provider Active Start: May 12, 2024 End: May 12, 2024 Team Status: Inactive Member Role Status Dates Dr. Jairon Medel MD Primary Care Provider Active Start: May 23, 2024 End: May 23, 2024 Jane Barth PECAN CLEANER, PECAN CLEANER-C Attending Provider Active Start: May 23, 2024 End: May 23, 2024 Team Status: Active Member Role/Relationship Status Dates Dr. Jairon Medel MD Primary Care Provider Active Team Status: Inactive Member Role/Relationship Status Dates Dr. Warner Leos Jr., MD Primary Care Provider Active Start: April 26, 2024 End: April 26, 2024 Jane Barth PECAN CLEANER, PECAN CLEANER-C Attending Provider Active Start: April 26, 2024 [...] 2024 End: May 12, 2024 Jane Barth PECAN CLEANER, PECAN CLEANER-C Attending Provider Active Start: May 12, 2024 [...] 2024 End: May 23, 2024 Jane Barth PECAN CLEANER, PECAN CLEANER-C Attending Provider Active Start: May 23, 2024 [...] End: May 12, 2024 Jane Barth NP, PECAN CLEANER-C Attending Provider Active Start: May 12, 2024 [...] 2024 End: May 23, 2024 Jane Barth PECAN CLEANER, PECAN CLEANER-C Attending Provider Active Start: May 23, 2024 [...] 2024 End: July 24, 2024 Jane Barth PECAN CLEANER, PECAN CLEANER-C Attending Provider Active Start: July 24, 2024 [...] 2024 End: July 24, 2024 Jane Barth PECAN CLEANER, PECAN CLEANER-C Attending Provider Active Start: July 24, 2024 [...] 08, 2024 End: August 08, 2024 Dr. Jairno Medel MD Attending Provider Active Start: August [...] 2024 Dr. Jean Claude Harry MD [facility] t Physician Active Start: July 24, 2024 End: July 24, 2024 Team Status: Inactive Member Role/Relationship Status Dates Dr. Jairon Medel MD Primary care physician Activ e Start: July 24, 2024 End: July 24, 2024 Jane Barth PECAN CLEANER, PECAN CLEANER-C Attending physician Active Start: July 24, 2024 [...] BE BASED ON THE PRIMARY CLINICAL RECORDS. [employer] provides no warranty or guarantee of the accuracy or completeness of information in this document.
--- OUTSIDE RECORDS SUMMARY | 2024-11-27 06:44 | XMS RPT_ITS | CCD ---
Author Organization [facility] Care Team Providers Care Chamber Magistrate Name Role Phone Carla Dye MD Unavailable PAULA LAANIZ Referring Unavailable PAULA ALANIZ Referring Unavailable ADRIANA , ALANNA Herrera Primary Care Physician MICAHAR DO, DR GAO Primary Care Physician [phone] Billy PARKER MD, Dabrandenung Unavailable Stuart RN, [...] ROMAR DO, DR GAO Primary Care Unavailable [employer] ROOM OPERATOR, ELDA Admitting Unavail able SNEHA PARKER, ESPERANZA Attending Unavailable ROMAR DO, DR GAO Primary Care Unavailable ROMAR DO, DR GAO Attending Unavailable ROMAR DO, DR GAO Primary Care Unavailable ROMAR DO, DR GAO Attending Unavailable ROMAR DO, DR GAO Primary Care Unavailable ROMAR DO, DR GAO Primary Care Unavailable ROMAR DO, DR GAO Attending Unavailable Deric PARKER, Dr. Hylton Primary Care Provider Lary DESKTOP ANALYST-C, Jane Attending Provider Jairon Medel MD Attending Provider Unavailsteffany Medel MD, Dr. De La O Attending Provider Jairon Medel MD Referring Provider UnavailDr. Warner Norton MD Primary Care Provider Jairon Medel MD Attending Provider Unavailsteffany Barth DESKTOP ANALYST-C, Jane Attending Provider Gianfranco PARKER, Dr. De La O Attending Provider Dr. Jairon Medel MD Primary Care Provider Dr. Jean Claude Harry MD Emergency Provider Deric PARKER, Dr. Hylton Primary Care Provider Jairon Medel MD Attending Provider UnavailDr. Jairon Morris MD Primary Care Provider Dr. Warner Leos MD Primary Care Provider Lary DESKTOP ANALYST-C, Jane Attending Provider Jairon Medel MD Attending Provider Unavailsteffany Medel MD, Dr. De La O Attending Provider Piero PARKER, Dr. Silverio Attending Provider Deric PARKER, Dr. Hylton Primary Care Provider Lary DESKTOP ANALYST-C, Jane Attending Provider Deric PARKER, Dr. Hylton Primary Care Provider Gianfranco PARKER, Jairon Attending Provider Unavaila katerina Medel MD, Jairon Referring Provider Unavailsteffany Medel MD, Dr. De La O Primary Care Provider Lary DESKTOP ANALYST-C, Jane Attending Provider Sameer PARKER, Dr. Dumont Attending Provider Gianfranco PARKER, Dr. De La O Primary Care Physician Piero PARKER, Dr. Silverio Attending Physician Piero PARKER, Dr. Silverio Emergency Department Physici an Lary DESKTOP ANALYST-C, Jane Attending Physician Sameer PARKER, Dr. Dumont Attending Physician Gianfranco PARKER, Dr. De La O Attending Physician Jairon Medel MD Attending Physician Unavail able Oleghe, Efewongbe Attending Unavailable Oleghe, Efewongbe Primary Care Unavailable Oleghe, Efewongbe Primary Care Unavailable Lary DESKTOP ANALYST, Jane Attending Unavailable Lary DESKTOP ANALYST, Jane Attending Unavailable Deric Rodriguez, Warner Primary [...] e Oleghe, Efewongbe Primary Care Unavailable Lary DESKTOP ANALYST, Jane Attending Unavailable Deric Rodriguez, Warner Primary Care Unavailable Oleghe, Efewongbe Attending Unavailable Oleghe, Efewongbe Primary Care Unavailable Oleghe, Efewongbe Primary Care Unavailable Tickton DESKTOP ANALYST, Jane Attending Unavailable Oleghe, Efewongbe Primary Care Unavailable Lary DESKTOP ANALYST, Jane Attending Unavailable Oleghe, Efewongbe Attending Unavailable [...] Oleghe OLS, Efewongbe Attending Unavailabl sophia Barth DESKTOP ANALYST, Jane Attending Unavailable Deric Rodriguez, Warner Primary Care Unavailable Allergies Allergy Classification Reported Allergen(s) Allergy Type Date of Onset Reaction(s) Facility (1 source) Sulfacetamide Drug Allergy 4 rash [facility] Work Phone: (10 sources) Sulfonamides (Antibiotic); Translations: [SULFA (SULFONAMIDE ANTIBIOTICS)] Propensity to adverse reactions to drug (disorder) 8 Intolerance [facility] Other [place] [facility] Medications Current Medications Medication Drug Class(es) [...] taking., # 12 tab(s), 1 Refill(s), Pharmacy: [facility]/pharmacy #[id number], 155, cm, 12/15/23 10:32:00 [...] taking., # 12 tab(s), 1 Refill(s), Pharmacy: [facility]/pharmacy #[id number], 153.5, cm, 06/15/23 10:26:00 EDT, Height, kg, 06/15/23 10:26:00 EDT, Dosing Weight Start Date: 06/15/23 Stop Date: 11/30/23 Status: Ordered anastrozole 1 mg oral tablet (20 sources) Aromatase Inhibitor Start: 09-28-2023 take 1 tablet by mouth once daily in the evening anastrozole 1 mg oral tablet 1 tab(s), Oral, qPM, # 90 tab(s), 0 Refill(s), Pharmacy: [facility]/pharmacy #[id number], 153.5, cm, 06/15/23 10:26:00 EDT, Height, kg, 06/15/23 10:26:00 EDT, Dosing Weight Start Date: 09/28/23 Status: Ordered Start: 03-16-2023 take 1 tablet by charles once daily in the evening anastrozole 1 mg oral tablet 1 tab(s), Oral, qPM, # 90 tab(s), 1 Refill(s), [id number] 155.2, cm, 03/16/23 9:59:00 EST, Height, kg, 03/16/23 9:59:00 EST, Dosing Weight Start Date: 03/16/23 Status: Ordered Start: 09-30-2022 take 1 tablet by charles th once daily in the evening anastrozole 1 mg oral tablet 1 tab(s), Oral, qPM, # 90 tab(s), 1 Refill(s), [id number] 156.5, cm, 09/11/22 11:11:00 EDT, Height, kg, 09/11/22 11:11:00 EDT, Dosing Weight Start Date: 09/30/22 Status: Ordered Start: 11-21-2021 take 1 tablet by charles th once daily in the evening anastrozole 1 mg oral tablet 1 tab(s), Oral, qPM, # 90 tab(s), 1 Refill(s), Pharmacy: [facility] STORE [id number], 154.5, cm, 11/18/21 13:32:00 EDT, Height, kg, 11/18/21 13:32:00 EDT, Dosing Weight Start Date: 11/21/21 Status: Ordered Start: 03-20-2020 End: 04-05-2021 take 1 tablet by mouth once daily anastrozole 1 mg oral tablet 1 tab(s), Oral, qDay, # 90 tab(s), 1 Refill(s), Pharmacy: [facility] STORE [id number], 155, cm, 11/04/20 8:28:00 EDT, Height, kg, 11/11/20 8:26:00 EDT, Dosing Weight Start Date: 04/17/21 Status: Ordered Start: 01-12-2018 ARIMIDEX 1 MG TABS 1 tablet daily ANASTROZOLE [id number] Vidya Babin LPN Comment on above: TAKE 1 TABLET BY CHARLES TH EVERY DAY aspirin 81 mg delayed release oral tablet (20 sources) Platelet Aggregation Inhibitor, Nonsteroidal Anti-inflammatory Drug Start: 10-05-2023 End: 04-02-2024 aspirin 81 mg oral delayed release tablet Dose : 81 mg = 1 tab(s), Oral, qAM, do not crush or chew, # 90 tab(s), 1 Refill(s), Pharmacy: [facility]/pharmacy #[id number], 153.5, cm, 06/15/23 10:26:00 EDT, Height, kg, 06/15/23 10:26:00 EDT, Dosing Weight Start Date: 10/05/23 Stop Date: 04/02/24 Status: Ordered Start: 03-05-2022 End: 05-20-2023 aspirin 81 mg oral delayed r elease tablet Dose : 81 mg = 1 tab(s), Oral, qAM, do not crush or chew, # 90 tab(s), 3 Refill(s), Pharmacy: [facility]/pharmacy #[id number], 154.3, cm, 04/16/22 16:12:00 [...] qPM, # 100 tab(s), 1 Refill(s), Pharmacy: [facility]/pharmacy #[id number], 155, cm, 12/15/23 10:32:00 EST, Height, kg, 12/15/23 10:26:00 EST, Dosing Weight Start Date: 12/15/23 Stop Date: 07/02/24 Status: Ordered Quantity: 100.0 Unit: tab(s) Repeat number: 2 Start: 09-13-2023 End: 12-12-2023 atorvastatin 20 mg oral tabl et Dose : 20 mg = 1 tab(s), Oral, qPM, # 90 tab(s), 0 Refill(s), Pharmacy: [facility]/pharmacy #[id number], 153.5, cm, 06/15/23 10:26:00 EDT, Height, kg, 06/15/23 10:26:00 EDT, Dosing Weight Start Date: 09/13/23 Stop Date: 12/12/23 Status: Ordered Start: 01-29-2023 End: 07-28-2023 atorvastatin 20 mg oral tabl et Dose : 20 mg = 1 tab(s), Oral, qPM, # 90 tab(s), 1 Refill(s), [id number], 156.5, cm, 09/11/22 11:11:00 EDT, Height, kg, 09/11/22 11:11:00 EDT, Dosing Weight Start Date: 01/29/23 Stop Date: 07/28/23 Status: Ordered Start: 03-09-2022 End: 11-21-2022 atorvastatin 20 mg oral tabl et Dose : 20 mg = 1 tab(s), Oral, qPM, # 90 tab(s), 1 Refill(s), [id number], 154.3, cm, 04/16/22 16:12:00 EST, Height, kg, 04/16/22 16:12:00 EST, Dosing Weight Start Date: 05/25/22 Stop Date: 11/21/22 Status: Ordered Start: 08-22-2021 take 0.5 tablet by m outh once daily atorvastatin 20 mg oral tablet 0.5 tab(s), Oral, qDay, # 45 tab(s), 1 Refill(s), Pharmacy: [facility] [id number], 155, cm, 05/05/21 8:51:00 EDT, Height, kg, 05/05/21 8:51:00 EDT, Dosing Weight Start Date: 08/22/21 Status: Ordered Start: 11-06-2020 take 0.5 tablet by m outh once daily atorvastatin 20 mg oral tablet See Instructions, TAKE 1/2 TABLET EVERY DAY, # 45 tab(s), 1 Refill(s), [id number], 155, cm, 11/04/20 8:28:00 EDT, [...] qAM, # 90 cap(s), 0 Refill(s), Pharmacy: [facility]/pharmacy #[id number], 156.2, cm, 07/01/22 6:28:00 EDT, Height, kg, 07/01/22 6:28:00 EDT, Dosing Weight Start Date: 08/10/22 Status: Ordered Start: 12-07-2016 take 1 capsule by mo [facility] once daily in the morning celecoxib 100 mg oral capsule 1 cap(s), Oral, qAM, # 90 cap(s), 1 Refill(s), Pharmacy: [facility] STORE 38611, 154.3, cm, 04/16/22 16:12:00 EST, Height, kg, 04/16/22 16:12:00 EST, Dosing Weight Start Date: 05/21/22 Status: Ordered Start: 10-27-2013 CELEBREX 100 M G CAPS 1-2 capsules weekly as needed CELECOXIB [id number] Vidya Babin STATION MASTER Comment on above: Take 100 mg by mouth once daily. ciclopirox 80 mg/ml topical solution (6 sources) Start: 03-05-2022 End: 01-06-2024 ciclopirox 8% topical solution Apply 1 angelica, Topical, Daily, apply to affected toenails and surrounding area once daily, remove with alcohol every 7 days prior to reapplication, Apply to: toenails, X 48 week(s), # 6.6 mL, 1 Refill(s), [id number], 154.3, cm, 03/05/22 9:44:00 EST, Height, 75.6 Start Date: 03/05/22 Stop Date: 01/06/24 Status: Ordered Clobetasol (3 sources) Corticosteroid Start: 01-20-2021 clobetasol 0.05% topical ointment See Instructions, APPLY TO AFFECTED AREA TWICE A DAY, # 15 gram(s), 1 Refill(s), Pharmacy: [facility] [id number], 155, cm, 11/04/20 8:28:00 EDT, Height, 81.2, kg, 11/11/20 8:26:00 EDT, Dosing Weight Start Date: 01/20/21 Status: Ordered Start: 07-30-2020 Temovate 0.05% topical ointment Apply 1 angelica, Topical, BID, # 15 gram(s), 0 Refill(s), [id number], Ointment, 155, cm, 07/23/20 8:15:00 [...] qHS, # 90 tab(s), 1 Refill(s), [id number], 156.5, cm, 09/11/22 11:11:00 EDT, [...] qHS, # 90 tab(s), 1 Refill(s), Pharmacy: [facility] STORE [id number], 155, cm, 11/04/20 8:28:00 EDT, Height, kg, [...] discomfort, # 39 tab(s), 0 Refill(s), Pharmacy: [facility]/pharmacy #[id number], 155, cm, 12/15/23 10:32:00 EST, Height, kg, 12/15/23 10:26:00 EST, Dosing Weight Start Date: 12/19/23 Stop Date: 03/18/24 Status: Ordered Quantity: 39.0 Unit: tab(s) Repeat number: 1 furosemide 20 mg oral tablet (7 sources) Loop Diuretic Start: 07-24-2024 take 1 tablet by mouth once daily Lidocaine (2 sources) Antiarrhythmic, Amide Local Anesthetic Start: 07-23-2020 lidocaine 4% topical cream Apply 1 angelcia, Topical, TID, # 5 gram(s), 0 Refill(s), [id number], Cream, 155, cm, 07/23/20 8:15:00 EDT, Height, 85.2, kg, 07/23/20 8:15:00 EDT, Dosing Weight Start Date: 07/23/20 Status: Ordered lisinopril 20 mg oral tablet (14 sources) Angiotensin Converting Enzyme Inhibitor Start: 03-16-2023 take 1 tablet by mouth once daily in the morning lisinopril 20 mg oral tablet 1 tab(s), Oral, qAM, # 90 tab(s), 1 Refill(s), [id number], 155.2, cm, 03/16/23 9:59:00 EST, Height, kg, 03/16/23 9:59:00 EST, Dosing Weight Start Date: 03/16/23 Status: Ordered Start: 10-15-2022 take 1 tablet by charles th once daily in the morning lisinopril 20 mg oral tablet 1 tab(s), Oral, qAM, # 90 tab(s), 1 Refill(s), [id number], 156.5, cm, 09/11/22 11:11:00 EDT, Height, kg, 09/11/22 11:11:00 EDT, Dosing Weight Start Date: 10/15/22 Status: Ordered Start: 04-13-2022 take 1 tablet by charles th once daily in the morning lisinopril 20 mg oral tablet 1 tab(s), Oral, qAM, # 90 tab(s), 1 Refill(s), [id number], 154.3, cm, 03/17/22 9:37:00 EST, Height, kg, 03/17/22 9:37:00 EST, Dosing Weight Start Date: 04/13/22 Status: Ordered Start: 09-02-2021 take 1 tablet by charles th once daily lisinopril 20 mg oral tablet 1 tab(s), Oral, qDay, # 90 tab(s), 1 Refill(s), Pharmacy: [facility] [id number], 155, cm, 05/05/21 8:51:00 EDT, Height, kg, 05/05/21 8:51:00 EDT, Dosing Weight Start Date: 09/02/21 Status: Ordered Start: 10-22-2020 take 1 tablet by charles th once daily lisinopril 20 mg oral tablet See Instructions, TAKE 1 TABLET BY MOUTH EVERY DAY, # 90 tab(s), 1 Refill(s), Pharmacy: [facility] [id number], 155, cm, 07/23/20 8:15:00 EDT, Height, kg, 07/30/20 8:40:00 EDT, Dosing Weight Start Date: 10/22/20 Status: Ordered losartan potassium 50 mg oral tablet (20 sources) Angiotensin 2 Receptor Aniyah Start: 10-27-2013 End: 07-02-2024 take 1 tablet by mouth once daily 24 hr memantine hydrochloride 28 mg extended release oral capsule (20 sources) Z-vjfpid-V-aspartate Receptor Antagonist Start: 07-24-2024 take 1 capsule [...] qAM, # 90 tab(s), 1 Refill(s), [id number], 156.5, cm, 09/11/22 11:11:00 EDT, Height, kg, 09/11/22 11:11:00 EDT, Dosing Weight Start Date: 01/29/23 Status: Ordered Start: 05-25-2022 take 1 tablet by charles th once daily in the morning memantine 5 mg oral tablet 1 tab(s), Oral, qAM, # 90 tab(s), 1 Refill(s), [id number], 154.3, cm, 04/16/22 16:12:00 EST, Height, kg, 04/16/22 16:12:00 EST, Dosing Weight Start Date: 05/25/22 Status: Ordered Start: 07-14-2021 take 1 tablet by charles once daily memantine 5 mg oral tablet 1 tab(s), Oral, qDay, # 90 tab(s), 1 Refill(s), Pharmacy: [facility] ST[facility] 53084, 155, cm, 05/05/21 8:51:00 EDT, Height, kg, 05/05/21 8:51:00 EDT, Dosing Weight Start Date: 07/14/21 Status: Ordered Start: 04-15-2021 take 1 tablet by charles once daily memantine 5 mg oral tablet 1 tab(s), Oral, qDay, # 90 tab(s), 0 Refill(s), Pharmacy: [facility] STORE [id number], 155, cm, 11/04/20 8:28:00 EDT, Height, kg, 11/11/20 8:26:00 EDT, Dosing Weight Start Date: 04/15/21 Status: Ordered Start: 10-17-2020 take 1 tablet by charles once daily memantine 5 mg oral tablet See Instructions, TAKE 1 TABLET BY MOUTH EVERY DAY, # 90 tab(s), 0 Refill(s), Pharmacy: [facility] 432[facility], 155, cm, 07/23/20 8:15:00 EDT, Height, kg, [...] 0 Refill(s) Start Date: 03/17/22 Status: Ordered Htqcqwbzxtew-Zk-Bnuy-Mineral s (Multiple Vitamins For Women) 1 EACH tablet (12 sources) Start: 04-20-2017 take 1 tablet by mouth once daily Start: 04-20-2017 take 1 tablet by charles once daily Jjbrdmlahors-Kt-Azhr-Minerals (Multiple Vitamins For Women) 1 EACH tablet Active 1 NMA PO DAILY April 20, 2017 12:00am mupirocin 0.02 mg/mg topical ointment (2 sources) RNA Synthetase Inhibitor Antibacterial Start: 06-19-2022 mupirocin 2% top ical ointment Apply 1 angelica, Topical, BID, Bilateral intranasal application twice daily x 5 days pre-surgery., Apply to: nostril, each, # 22 gram(s), 0 Refill(s), Pharmacy: [facility]/pharmacy #[id number], Ointment, 154.3, cm, 05/28/22 7:35:00 EDT, Height, 77 Start Date: 06/19/22 Status: Ordered nystatin [id number] unt/ml topical cream (8 sources) Polyene Antifungal Start: 07-24-2024 Start: 09-11-2022 End: 11-10-2022 nystatin 100,000 units/g top ical cream Apply 1 angelica, Topical, BID, PRN Rash, Apply to the affected area twice daily until healing complete., # 30 gram(s), 1 Refill(s), [id number], Cream, 156.5, cm, 09/11/22 11:11:00 [...] Date: 01/24/24 Status: Ordered polyethylene glycol 3350 35535 mg powder for oral solution (8 sources) [...] day(s), # 6 tab(s), 0 Refill(s), Pharmacy: [facility]/pharmacy #[id number], 155, cm, 12/15/23 10:32:00 [...] TABS 1 tablet daily CALCIUM CARB-CHOLECALCIFEROL TABS [id number] Vidya Babin STATION [employer] calcium carbonate 1500 mg oral tablet (12 sources) Start: End: calcium (as carbonate) 600 mg oral tablet Dose : 600 mg = 1 tab(s), Oral, qDay, # 90 tab(s), 3 Refill(s), Pharmacy: [facility]/pharmacy #[id number], 156.5, cm, 09/11/22 11:11:00 [...] Comment on above: Take [address] [facility] once daily. cyclobenzaprine hydrochloride 10 mg oral [...] qAM, # 90 tab(s), 1 Refill(s), Pharmacy: [facility] STORE 18891, 154.5, cm, 11/18/21 13:32:00 EDT, Height, kg, [...] MULTIVITAMINS CAPS 1 capsule daily MULTIPLE VITAMIN [id number] Jane Troy multivitamin tablet (2 sources) take [...] Auto (Unsp spec) [#/Vol] 2.13 10*3/uL 0.83-4.51 [facility] Absolute neutrophil countOrd ered By: Jairon Medel on 10-16-2024 Neutrophils (Bld) [#/Vol] 4.1 10*3/uL 2.0-7.7 [facility] Anion gap in Serum or Plasma Ordered By: Jairon Medel on 10-16-2024 Anion gap [Moles/Vol] 13 mmol/L 5-15 [facility] Automated lymphocyte count a s percentage of total leukocytesOrdered By: Jairon Medel on 10-16-2024 Lymphocytes/100 WBC Auto (Unsp spec) 29.5 % 19-41 [facility] BUN/creatinine ratioOrdered By: Jairon Medel on 10-16-2024 Urea nitrogen/Creatinine [Mass ratio] 22.8 mg/mg High 10-20 [facility] Basophil percentageOrdered B y: Jairon Medel on 10-16-2024 Basophils/100 WBC (Bld) 0.8 % 0-1 [facility] Carbon dioxide, total [Moles /volume] in Central venous bloodOrdered By: Jairon Medel on 10-16-2024 CO2 [Moles/Vol] 22.8 mmol/L 21.0-32.0 [facility] Chloride assayOrdered By: Pooja Medel on 10-16-2024 Chloride [Moles/Vol] 104 mmol/L 98-108 [facility] Eosinophil percentageOrdered By: margarette Medel on 10-16-2024 Eosinophils/100 WBC (Bld) 3.2 % 0-5 [facility] Erythrocyte distribution wid th ratioOrdered By: Jairon Medel on 10-16-2024 Erythrocyte distribution width (RBC) [Ratio] 13.2 % 11.6-14.6 [facility] Erythrocyte distribution wid th standard deviationOrdered By: Jairon Medel on 10-16-2024 Erythrocyte distribution width (RBC) [Ratio] 44.1 fl High 35.1-43.9 [facility] Glomerular filtration rate ( GFR) estimation/1.73 sq m using serum, plasma, or whole bOrdered By: Jairon Medel on 10-16-2024 GFR/1.73 sq M.predicted among non-blacks MDRD (S/P/Bld) [Vol rate/Area] 51 mL/min/{1.73_m2} Low >60 [facility] Comment on above: mL/min/1.73m2 CKD-EP I Creatinine Equation (2020) Hematocrit Auto (Bld) [Volum e fraction]Ordered By: Jairon Medel on 10-16-2024 Hematocrit (Bld) [Volume fraction] 32.8 % Low 37-47 [facility] Hemoglobin measurementOrdere d By: Jairon Medel on 10-16-2024 Hemoglobin (Bld) [Mass/Vol] 10.0 g/dL Low 12.0-15.0 [facility] Immature granulocytes/100 WB C Auto (Bld)Ordered By: Jairon Medel on 10-16-2024 Immature granulocytes/100 WBC (Bld) 0.300 % 0.0-0.9 [facility] Comment on above: IG% - Immature Granu locytes (promyelocytes, myelocytes and metamyelocytes) > 1% indicates that a LEFT SHIFT is Present. MCV (mean corpuscular volume ) determinationOrdered By: Jairon Medel on 10-16-2024 MCV (RBC) [Entitic vol] 91.4 fL 81-99 [facility] Mean corpuscular hemoglobin (MCH) determinationOrdered By: Jairon Medel on 10-16-2024 MCH (RBC) [Entitic mass] 27.9 pg 27.0-32.0 [facility] Mean corpuscular hemoglobin concentration (MCHC) determinationOrdered By: Jairon Medel on 10-16-2024 MCHC (RBC) [Mass/Vol] 30.5 g/dL Low 32-36 [facility] Mean platelet volume determi nationOrdered By: Jairon Medel on 10-16-2024 Platelet mean volume (Bld) [Entitic vol] 10.6 fL 6.2-12.0 [facility] Monocyte percentageOrdered B y: Jairon Medel on 10-16-2024 Monocytes/100 WBC (Bld) 9.4 % 0-10 [facility] Neutrophil percentageOrdered By: Jairon Medel on 10-16-2024 Neutrophils/100 WBC (Bld) 56.8 % 47-70 [facility] Nucleated red blood cell per centageOrdered By: Jairon Medel on 10-16-2024 Nucleated RBC/100 WBC (Bld) [Ratio] 0 % 0-5 [facility] Platelet countOrdered By: Pooja Medel on 10-16-2024 Platelets (Bld) [#/Vol] 273 10*3/uL 150-450 [facility] Potassium measurement (mass/ volume)Ordered By: Goldiemakenzie Torojenifersophia on 10-16-2024 Potassium (Unsp spec) [Mass/Vol] 4.2 mmol/L 3.3-5.1 [facility] RBC Auto (Bld) [#/Vol]Ordere d By: Jairon Medel on 10-16-2024 RBC (Bld) [#/Vol] 3.59 10*6/uL Low 4.2-5.4 [facility] Serum creatinine measurement (mass/volume)Ordered By: Goldiemakenzie Torojenifersophia on 10-16-2024 Creatinine [Mass/Vol] 1.07 mg/dL 0.70-1.20 [facility] Serum glucose measurement (m ass/volume)Ordered By: Jairon Cortezjenifersophia on 10-16-2024 Glucose [Mass/Vol] 76 mg/dL 70-99 [facility] Serum or plasma calcium krissy urement (mass/volume)Ordered By: Jairon Cortezjenifersophia on 10-16-2024 Calcium [Mass/Vol] 9.7 mg/dL 7.6-11.0 [facility] Serum or plasma urea nitroge n measurement (mass/volume)Ordered By: Goldiemakenzie Torojenifersophia on 10-16-2024 Urea nitrogen [Mass/Vol] 24 mg/dL High 4-19 [facility] Sodium levelOrdered By: Carrillo feliciano Cortezjenifersophia on 10-16-2024 Sodium [Moles/Vol] 139 mmol/L 133-145 [facility] White blood cell (WBC) count Ordered By: Jairon De Leone on 10-16-2024 WBC (Bld) [#/Vol] 7.2 10*3/uL 4.4-11.0 [facility] Absolute lymphocyte countOrd ered By: Jairon De Leonsophia on 09-18-2024 Lymphocytes Auto (Unsp spec) [#/Vol] 1.93 10*3/uL 0.83-4.51 [facility] Absolute neutrophil countOrd ered By: Jairon De Leone on 09-18-2024 Neutrophils (Bld) [#/Vol] 3.1 10*3/uL 2.0-7.7 [facility] Anion gap in Serum or Plasma Ordered By: Jairon Cortezjenifersopiha on 09-18-2024 Anion gap [Moles/Vol] 11 mmol/L 5-15 [facility] Automated lymphocyte count a s percentage of total leukocytesOrdered By: Jairon Cortezjenifersophia on 09-18-2024 Lymphocytes/100 WBC Auto (Unsp spec) 34.0 % 19-41 [facility] BUN/creatinine ratioOrdered By: Jairon De Leone on 09-18-2024 Urea nitrogen/Creatinine [Mass ratio] 23.1 mg/mg High 10-20 [facility] Basophil percentageOrdered B y: Jairon De Leone on 09-18-2024 Basophils/100 WBC (Bld) 0.7 % 0-1 [facility] Carbon dioxide, total [Moles /volume] in Central venous bloodOrdered By: Jairon Cortezjenifersophia on 09-18-2024 CO2 [Moles/Vol] 23.8 mmol/L 21.0-32.0 [facility] Chloride assayOrdered By: Ef meghanmakenzie Torojenifere on 09-18-2024 Chloride [Moles/Vol] 106 mmol/L 98-108 [facility] Eosinophil percentageOrdered By: Jairon Cortezjenifere on 09-18-2024 Eosinophils/100 WBC (Bld) 2.1 % 0-5 [facility] Erythrocyte distribution wid th ratioOrdered By: Jairon Medel on 09-18-2024 Erythrocyte distribution width (RBC) [Ratio] 13.6 % 11.6-14.6 [facility] Erythrocyte distribution wid th standard deviationOrdered By: Jairon Medel on 09-18-2024 Erythrocyte distribution width (RBC) [Ratio] 45.4 fl High 35.1-43.9 [facility] Glomerular filtration rate ( GFR) estimation/1.73 sq m using serum, plasma, or whole bOrdered By: [email or web address] Medel on 09-18-2024 GFR/1.73 sq M.predicted among non-blacks MDRD (S/P/Bld) [Vol rate/Area] 59 mL/min/{1.73_m2} Low >60 [facility] Comment on above: mL/min/1.73m2 CKD-EP I Creatinine Equation (2020) Hematocrit Auto (Bld) [Volum e fraction]Ordered By: Jairon Medel on 09-18-2024 Hematocrit (Bld) [Volume fraction] 31.9 % Low 37-47 [facility] Hemoglobin measurementOrdere d By: Jairon Medel on 09-18-2024 Hemoglobin (Bld) [Mass/Vol] 9.9 g/dL Low 12.0-15.0 [facility] Immature granulocytes/100 WB C Auto (Bld)Ordered By: Jairon Medel 09-18-2024 Immature granulocytes/100 WBC (Bld) 0.400 % 0.0-0.9 [facility] Health Comment on above: IG% - Immature Granu locytes (promyelocytes, myelocytes and metamyelocytes) > 1% indicates that a LEFT SHIFT is Present. MCV (mean corpuscular volume ) determinationOrdered By: Jairon Medel on 09-18-2024 MCV (RBC) [Entitic vol] 91.7 fL 81-99 [facility] Mean corpuscular hemoglobin (MCH) determinationOrdered By: Jairon Medel 09-18-2024 MCH (RBC) [Entitic mass] 28.4 pg 27.0-32.0 [facility] Mean corpuscular hemoglobin concentration (MCHC) determinationOrdered By: Jairon Medel on 09-18-2024 MCHC (RBC) [Mass/Vol] 31.0 g/dL Low 32-36 [facility] Mean platelet volume determi nationOrdered By: Jairon Torojenifersophia on 09-18-2024 Platelet mean volume (Bld) [Entitic vol] 10.9 fL 6.2-12.0 [facility] Monocyte percentageOrdered B y: Jairon Medel on 09-18-2024 Monocytes/100 WBC (Bld) 7.9 % 0-10 [facility] Neutrophil percentageOrdered By: Jairon Torojenifersophia on 09-18-2024 Neutrophils/100 WBC (Bld) 54.9 % 47-70 [facility] Nucleated red blood cell per centageOrdered By: Jairon Torojenifersophia on 09-18-2024 Nucleated RBC/100 WBC (Bld) [Ratio] 0 % 0-5 [facility] Platelet countOrdered By: Pooja meghanmakenzie Medel on 09-18-2024 Platelets (Bld) [#/Vol] 247 10*3/uL 150-450 [facility] Potassium measurement (mass/ volume)Ordered By: Jairon Medel on 09-18-2024 Potassium (Unsp spec) [Mass/Vol] 4.1 mmol/L 3.3-5.1 [facility] RBC Auto (Bld) [#/Vol]Ordere d By: Jairon Medel on 09-18-2024 RBC (Bld) [#/Vol] 3.48 10*6/uL Low 4.2-5.4 [facility] Serum creatinine measurement (mass/volume)Ordered By: Jairon Medel on 09-18-2024 Creatinine [Mass/Vol] 0.94 mg/dL 0.70-1.20 [facility] Serum glucose measurement (m ass/volume)Ordered By: Jairon Medel on 09-18-2024 Glucose [Mass/Vol] 86 mg/dL 70-99 [facility] Serum or plasma calcium krissy urement (mass/volume)Ordered By: Jairon Medel on 09-18-2024 Calcium [Mass/Vol] 9.9 mg/dL 7.6-11.0 [facility] Serum or plasma urea nitroge n measurement (mass/volume)Ordered By: Jairon Medel on 09-18-2024 Urea nitrogen [Mass/Vol] 22 mg/dL High 4-19 [facility] Sodium levelOrdered By: Carrillo Medel on 09-18-2024 Sodium [Moles/Vol] 141 mmol/L 133-145 [facility] White blood cell (WBC) count Ordered By: Jairon Medel on 09-18-2024 WBC (Bld) [#/Vol] 5.7 10*3/uL 4.4-11.0 [facility] Bilirubin directOrdered By: Jairon Medel on 08-28-2024 Bilirubin.direct [Mass/Vol] 0.12 mg/dL 0.00-0.30 [facility] Bilirubin, totalOrdered By: Jairon Medel on 08-28-2024 Bilirubin [Mass/Vol] 0.23 mg/dL 0.00-1.30 [facility] Calculated very low density lipoprotein (VLDL) cholesterol measurementOrdered By: Jairon Medel on 08-28-2024 Calculated very low density lipoprotein (VLDL) cholesterol measurement 23 mg/dL 5-40 [facility] LDL calc ser/plasOrdered By: Jairon Medel on 08-28-2024 Cholesterol in LDL [Mass/Vol] 46 mg/dL [facility] Comment on above: Ktviopmoge=941-885 m g/dL & Higher Ogif=805 mg/dL or greater Laboratory - Chemistry and C hemistry - challengeOrdered By: Jairon Medel on 08-28-2024 AST [Catalytic activity/Vol] 15 U/L <32 [facility] Screening total cholesterol/ high density lipoprotein (HDL) cholesterol ratioOrdered By: Jairon Medel on 08-28-2024 Cholesterol.total/Luisa sterol in HDL [Mass ratio] 2.33 {ratio} [facility] Serum globulin measurementOr dered By: Jairon Medel on 08-28-2024 Globulin (S) [Mass/Vol] 2.2 g/dL 2.2-4.2 [facility] Serum or plasma alanine crane otransferase (ALT) measurementOrdered By: Poojamargarette Medel on 08-28-2024 ALT [Catalytic activity/Vol] 9 U/L <35 [facility] Serum or plasma albumin krissy urement (mass/volume)Ordered By: Jairon Medel 08-28-2024 Albumin [Mass/Vol] 3.7 g/dL 3.4-4.8 [facility] Serum or plasma alkaline luis sphatase measurementOrdered By: Poojamargarette Torojenifersophia 08-28-2024 ALP [Catalytic activity/Vol] 73 U/L 35-104 [facility] Serum or plasma cholesterol in HDL measurement (mass/volume)Ordered By: Poojamargarette Medel 08-28-2024 Cholesterol in HDL [Mass/Vol] 52 mg/dL >40 [facility] Comment on above: National Cholesterol Education Program (NCEP) guidelines:<40 mg/dL: Low HDL-cholesterol (major risk factor for CHD)>= 60 mg/dL: High HDL-cholesterol (negative risk factor for CHD)HDL-cholesterol is affected by a number of factors, e.g. smoking, exercise, hormones, sex and age. Serum or plasma cholesterol measurement (mass/volume)Ordered By: Jairon Medel 08-28-2024 Cholesterol [Mass/Vol] 121 mg/dL <201 [facility] Comment on above: Cholesterol level, D esirable <200 mg/dLBorderline high cholesterol 200-239 mg/dLHigh cholesterol >=240 mg/dLRecommendations of the NCEP Adult Treatment Panel for the following risk-cutoff thresholds for the [place] population. Serum or plasma valproate me asurement (mass/volume)Ordered By: Jairon Medel on 08-28-2024 Valproate [Mass/Vol] 14 ug/mL Low 50-100 [facility] Comment on above: Valproic Acid concen trations >100 ug/mL are potentially toxic. Total proteinOrdered By: Masoud Medel 08-28-2024 Protein [Mass/Vol] 5.9 g/dL 5.9-8.4 [facility] Triglycerides measurementOrd ered By: Jairon Medel on 08-28-2024 Triglyceride [Mass/Vol] 115 mg/dL <199 [facility] Comment on above: The drugs N-Acetylcy steine and Metamizole may falsely depress this assay. Normal range: <150 mg/dLBorderline High: 150-199 mg/dLHigh: 200-499 mg/dLVery High: >500 mg/dL Absolute lymphocyte countOrd ered By: Jairon Meedl on 08-21-2024 Lymphocytes Auto (Unsp spec) [#/Vol] 1.69 10*3/uL 0.83-4.51 [facility] Absolute neutrophil countOrd ered By: Jairon Medel on 08-21-2024 Neutrophils (Bld) [#/Vol] 4.3 10*3/uL 2.0-7.7 [facility] Anion gap in Serum or Plasma Ordered By: Jairon Medel on 08-21-2024 Anion gap [Moles/Vol] 10 mmol/L 5-15 [facility] Automated lymphocyte count a s percentage of total leukocytesOrdered By: Jairon Medel on 08-21-2024 Lymphocytes/100 WBC Auto (Unsp spec) 24.9 % 19-41 [facility] BUN/creatinine ratioOrdered By: Jairon Medel on 08-21-2024 Urea nitrogen/Creatinine [Mass ratio] 21.2 mg/mg High 10-20 [facility] Basophil percentageOrdered B y: Jairon Medel on 08-21-2024 Basophils/100 WBC (Bld) 0.7 % 0-1 [facility] Carbon dioxide, total [Moles /volume] in Central venous bloodOrdered By: Jairon Medel on 08-21-2024 CO2 [Moles/Vol] 24.4 mmol/L 21.0-32.0 [facility] Chloride assayOrdered By: Pooja Medel on 08-21-2024 Chloride [Moles/Vol] 108 mmol/L 98-108 [facility] Eosinophil percentageOrdered By: Jairon Medel on 08-21-2024 Eosinophils/100 WBC (Bld) 1.9 % 0-5 [facility] Erythrocyte distribution wid th ratioOrdered By: Jairon Medel on 08-21-2024 Erythrocyte distribution width (RBC) [Ratio] 14.2 % 11.6-14.6 [facility] Erythrocyte distribution wid th standard deviationOrdered By: Jairon Medel on 08-21-2024 Erythrocyte distribution width (RBC) [Ratio] 47.2 fl High 35.1-43.9 [facility] Glomerular filtration rate ( GFR) estimation/1.73 sq m using serum, plasma, or whole bOrdered By: Carrilloghentmakenzie Medel on 08-21-2024 GFR/1.73 sq M.predicted among non-blacks MDRD (S/P/Bld) [Vol rate/Area] 67 mL/min/{1.73_m2} >60 [facility] Comment on above: mL/min/1.73m2 CKD-EP I Creatinine Equation (2020) Hematocrit Auto (Bld) [Volum e fraction]Ordered By: Jairon Medel on 08-21-2024 Hematocrit (Bld) [Volume fraction] 31.9 % Low 37-47 [facility] Hemoglobin measurementOrdere d By: Jairon Medel 08-21-2024 Hemoglobin (Bld) [Mass/Vol] 10.2 g/dL Low 12.0-15.0 [facility] Immature granulocytes/100 WB C Auto (Bld)Ordered By: Jairon Medel 08-21-2024 Immature granulocytes/100 WBC (Bld) 0.100 % 0.0-0.9 [facility] Comment on above: IG% - Immature Granu locytes (promyelocytes, myelocytes and metamyelocytes) > 1% indicates that a LEFT SHIFT is Present. MCV (mean corpuscular volume ) determinationOrdered By: Jairon Medel on 08-21-2024 MCV (RBC) [Entitic vol] 91.7 fL 81-99 [facility] Mean corpuscular hemoglobin (MCH) determinationOrdered By: Jairon Medel 08-21-2024 MCH (RBC) [Entitic mass] 29.3 pg 27.0-32.0 [facility] Mean corpuscular hemoglobin concentration (MCHC) determinationOrdered By: Jairon Medel on 08-21-2024 MCHC (RBC) [Mass/Vol] 32.0 g/dL 32-36 [facility] Mean platelet volume determi nationOrdered By: Jairon Medel on 08-21-2024 Platelet mean volume (Bld) [Entitic vol] 10.6 fL 6.2-12.0 [facility] Monocyte percentageOrdered B y: Jairon Medel on 08-21-2024 Monocytes/100 WBC (Bld) 9.0 % 0-10 [facility] Neutrophil percentageOrdered By: Jairon Medel on 08-21-2024 Neutrophils/100 WBC (Bld) 63.4 % 47-70 [facility] Nucleated red blood cell per centageOrdered By: Jairon Medel on 08-21-2024 Nucleated RBC/100 WBC (Bld) [Ratio] 0 % 0-5 [facility] Platelet countOrdered By: Pooja Medel on 08-21-2024 Platelets (Bld) [#/Vol] 232 10*3/uL 150-450 [facility] Potassium measurement (mass/ volume)Ordered By: Jairon Medel on 08-21-2024 Potassium (Unsp spec) [Mass/Vol] 4.4 mmol/L 3.3-5.1 [facility] RBC Auto (Bld) [#/Vol]Ordere d By: Jairon Medel on 08-21-2024 RBC (Bld) [#/Vol] 3.48 10*6/uL Low 4.2-5.4 [facility] Serum creatinine measurement (mass/volume)Ordered By: Jairon Medel on 08-21-2024 Creatinine [Mass/Vol] 0.85 mg/dL 0.70-1.20 [facility] Serum glucose measurement (m ass/volume)Ordered By: Jairon Medel on 08-21-2024 Glucose [Mass/Vol] 95 mg/dL 70-99 [facility] Serum or plasma calcium krissy urement (mass/volume)Ordered By: Jairon Cortezjenifersophia on 08-21-2024 Calcium [Mass/Vol] 9.4 mg/dL 7.6-11.0 [facility] Serum or plasma urea nitroge n measurement (mass/volume)Ordered By: Jairon Medel on 08-21-2024 Urea nitrogen [Mass/Vol] 18 mg/dL 4-19 [facility] Sodium levelOrdered By: Carrillo Medel on 08-21-2024 Sodium [Moles/Vol] 142 mmol/L 133-145 [facility] White blood cell (WBC) count Ordered By: margarette Cortezdorcas on 08-21-2024 WBC (Bld) [#/Vol] 6.8 10*3/uL 4.4-11.0 [facility] Emergency Department Summary on 07-24-2024 Emergency Department Summary [facility] Medical Records Department [address] [place] [address] Emergency Department Summary 07/24/24 MR#: [id number] Acct: [id number] Name: CT DALTON Rep #: [id number] : 1940 83 From: Jean Claude Harry [...] and prediabetes. Took a fall today at [facility] where she lives. Now having right [...] PO DAILY 04/20/17 04/27/17 0 8:00 History qdgsbpponcrg-[id number]-m inerals 1 ea PO DAILY 04/20/17 Unknown [...] range of motion. 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 Neurologically she is awake and alert. She answers questions she does have dementia and some confusion. She does follow commands. Const Vital Signs: 07/24/24 01:24 07/24/24 01:24 Temperature 98 F Temperature Source Oral Pulse Rate 53 L Respirator (more content not included)... Normal [facility] HIP, UNI W/ Pelvis 2-3 Views on 07-24-2024 HIP, UNI W/ Pelvis 2-3 Views [facility] Imaging Services [address] [place], [place] [id number] HIP, UNI W/ Pelvis 2-3 Views MR#: [id number] Acct: [id number] Name: CT DALTON Rep #: [id number] : 1940 F 83 From: Lauri mason MD PCP: Dr. Jairon Medel MD Status: REG ER Study: HIP, UNI W/ Pelvis 2-3 Views Date of Exam: Exam# [id number] Ordering Dr: Jean Claude Harry MD PROCEDURE: [...] Right hip moderate degenerative changes. Reading Location: [place] [address] CC: Dr. Jairon Medel MD; Dr. Jean Claude Harry MD Compactor Driver: Signed Normal [facility] Absolute lymphocyte countOrd ered By: Jairon Medel on 06-26-2024 Lymphocytes Auto (Unsp spec) [#/Vol] 2.05 10*3/uL 0.83-4.51 [facility] Absolute neutrophil countOrd ered By: Jairon Medel on 06-26-2024 Neutrophils (Bld) [#/Vol] 3.9 10*3/uL 2.0-7.7 [facility] Anion gap in Serum or Plasma Ordered By: Jairon Medel on 06-26-2024 Anion gap [Moles/Vol] 9 mmol/L 5-15 [facility] Automated lymphocyte count a s percentage of total leukocytesOrdered By: Jairon Medel on 06-26-2024 Lymphocytes/100 WBC Auto (Unsp spec) 30.5 % - [facility] BUN/creatinine ratioOrdered By: Jairon Medel on 06-26-2024 Urea nitrogen/Creatinine [Mass ratio] 20.9 mg/mg High 10-20 [facility] Basophil percentageOrdered B y: Jairon Medel on 06-26-2024 Basophils/100 WBC (Bld) 0.4 % 0-1 [facility] Carbon dioxide, total [Moles /volume] in Central venous bloodOrdered By: Jairon Medel on 06-26-2024 CO2 [Moles/Vol] 23.5 mmol/L 21.0-32.0 [facility] Chloride assayOrdered By: Pooja Medel on 06-26-2024 Chloride [Moles/Vol] 107 mmol/L 98-108 [facility] Eosinophil percentageOrdered By: Jairon Medel on 06-26-2024 Eosinophils/100 WBC (Bld) 1.9 % 0-5 [facility] Erythrocyte distribution wid th ratioOrdered By: Jairon Medel on 06-26-2024 Erythrocyte distribution width (RBC) [Ratio] 14.1 % 11.6-14.6 [facility] Erythrocyte distribution wid th standard deviationOrdered By: Jairon Medel on 06-26-2024 Erythrocyte distribution width (RBC) [Ratio] 46.5 fl High 35.1-43.9 [facility] Glomerular filtration rate ( GFR) estimation/1.73 sq m using serum, plasma, or whole bOrdered By: Jairon Medel on 06-26-2024 GFR/1.73 sq M.predicted among non-blacks MDRD (S/P/Bld) [Vol rate/Area] 55 mL/min/{1.73_m2} Low >60 [facility] Comment on above: mL/min/1.73m2 CKD-EP I Creatinine Equation (2020) Hematocrit Auto (Bld) [Volum e fraction]Ordered By: Jairon Medel on 06-26-2024 Hematocrit (Bld) [Volume fraction] 32.7 % Low 37-47 [facility] Hemoglobin measurementOrdere d By: Jairon Medel on 06-26-2024 Hemoglobin (Bld) [Mass/Vol] 10.1 g/dL Low 12.0-15.0 [facility] Immature granulocytes/100 WB C Auto (Bld)Ordered By: Jairon Medel on 06-26-2024 Immature granulocytes/100 WBC (Bld) 0.400 % 0.0-0.9 [facility] Comment on above: IG% - Immature Granu locytes (promyelocytes, myelocytes and metamyelocytes) > 1% indicates that a LEFT SHIFT is Present. MCV (mean corpuscular volume ) determinationOrdered By: Jairon Medel on 06-26-2024 MCV (RBC) [Entitic vol] 90.3 fL 81-99 [facility] Mean corpuscular hemoglobin (MCH) determinationOrdered By: Jairon Medel on 06-26-2024 MCH (RBC) [Entitic mass] 27.9 pg 27.0-32.0 [facility] Mean corpuscular hemoglobin concentration (MCHC) determinationOrdered By: Jairon Medel on 06-26-2024 MCHC (RBC) [Mass/Vol] 30.9 g/dL Low 32-36 [facility] Mean platelet volume determi nationOrdered By: Jairon Medel on 06-26-2024 Platelet mean volume (Bld) [Entitic vol] 10.3 fL 6.2-12.0 [facility] Monocyte percentageOrdered B y: Jairon Medel on 06-26-2024 Monocytes/100 WBC (Bld) 8.8 % 0-10 [facility] Neutrophil percentageOrdered By: Jairon Medel on 06-26-2024 Neutrophils/100 WBC (Bld) 58.0 % 47-70 [facility] Nucleated red blood cell per centageOrdered By: Jairon Medel on 06-26-2024 Nucleated RBC/100 WBC (Bld) [Ratio] 0 % 0-5 [facility] Platelet countOrdered By: Pooja Medel on 06-26-2024 Platelets (Bld) [#/Vol] 242 10*3/uL 150-450 [facility] Potassium measurement (mass/ volume)Ordered By: Jairon Medel on 06-26-2024 Potassium (Unsp spec) [Mass/Vol] 4.3 mmol/L 3.3-5.1 [facility] RBC Auto (Bld) [#/Vol]Ordere d By: Jairon Medel on 06-26-2024 RBC (Bld) [#/Vol] 3.62 10*6/uL Low 4.2-5.4 [facility] Serum creatinine measurement (mass/volume)Ordered By: Jairon Medel on 06-26-2024 Creatinine [Mass/Vol] 1.01 mg/dL 0.70-1.20 [facility] Serum glucose measurement (m ass/volume)Ordered By: Jairon Medel on 06-26-2024 Glucose [Mass/Vol] 89 mg/dL 70-99 [facility] Serum or plasma calcium krissy urement (mass/volume)Ordered By: Jairon Medel on 06-26-2024 Calcium [Mass/Vol] 9.6 mg/dL 7.6-11.0 [facility] Serum or plasma urea nitroge n measurement (mass/volume)Ordered By: Jairon Medel on 06-26-2024 Urea nitrogen [Mass/Vol] 21 mg/dL High 4- [facility] Sodium levelOrdered By: Carrillo braden Gianfranco on 06-26-2024 Sodium [Moles/Vol] 140 mmol/L 133-145 [facility] White blood cell (WBC) count Ordered By: Jairon Medel on 06-26-2024 WBC (Bld) [#/Vol] 6.7 10*3/uL 4.4-11.0 [facility] Absolute lymphocyte countOrd ered By: Jairon Medel on 05-29-2024 Lymphocytes Auto (Unsp spec) [#/Vol] 2.09 10*3/uL 0.83-4.51 [facility] Absolute neutrophil countOrd ered By: Jairon Medel on 05-29-2024 Neutrophils (Bld) [#/Vol] 3.4 10*3/uL 2.0-7.7 [facility] Anion gap in Serum or Plasma Ordered By: Jairon Medel on 05-29-2024 Anion gap [Moles/Vol] 10 mmol/L 5-15 [facility] Automated lymphocyte count a s percentage of total leukocytesOrdered By: Jairon Medel on 05-29-2024 Lymphocytes/100 WBC Auto (Unsp spec) 34.4 % - [facility] BUN/creatinine ratioOrdered By: Jairon Medel on 05-29-2024 Urea nitrogen/Creatinine [Mass ratio] 16.9 mg/mg 10-20 [facility] Basophil percentageOrdered B y: Jairon Medel on 05-29-2024 Basophils/100 WBC (Bld) 1.2 % High 0-1 [facility] Bilirubin directOrdered By: Jairon Medel on 05-29-2024 Bilirubin.direct [Mass/Vol] 0.17 mg/dL 0.00-0.30 [facility] Bilirubin, totalOrdered By: Jairon Medel on 05-29-2024 Bilirubin [Mass/Vol] 0.35 mg/dL 0.00-1.30 [facility] Carbon dioxide, total [Moles /volume] in Central venous bloodOrdered By: Jairon Medel on 05-29-2024 CO2 [Moles/Vol] 25.1 mmol/L 21.0-32.0 [facility] Chloride assayOrdered By: Pooja sreekanthbraden Medel on 05-29-2024 Chloride [Moles/Vol] 105 mmol/L 98-108 [facility] Eosinophil percentageOrdered By: Jairon Medel on 05-29-2024 Eosinophils/100 WBC (Bld) 1.6 % 0-5 [facility] Erythrocyte distribution wid th (RBC) [Ratio]Ordered By: Jairon Medel on 05-29-2024 Erythrocyte distribution width (RBC) [Entitic vol] 41.0 fL 35.1-43.9 [facility] Erythrocyte distribution wid th ratioOrdered By: Carrilloghentmakenzie Medel on 05-29-2024 Erythrocyte distribution width (RBC) [Ratio] 13.1 % 11.6-14.6 [facility] Erythrocyte distribution wid th standard deviationOrdered By: Jairon Torojenifersophia on 05-29-2024 Erythrocyte distribution width (RBC) [Ratio] 41.0 fl 35.1-43.9 [facility] GFR/1.73 sq M.predicted hua g non-blacks MDRD (S/P/Bld) [Vol rate/Area]Ordered By: Jairon Medel on 05-29-2024 Estimated GFR (MDRD) Non-Af Amer 50 Low >60 [facility] Comment on above: mL/min/1.73m2 CKD-EP I Creatinine Equation (2020) Glomerular filtration rate ( GFR) estimation/1.73 sq m using serum, plasma, or whole bOrdered By: Jairon Medel on 05-29-2024 GFR/1.73 sq M.predicted among non-blacks MDRD (S/P/Bld) [Vol rate/Area] 50 mL/min/{1.73_m2} Low >60 [facility] Comment on above: mL/min/1.73m2 CKD-EP I Creatinine Equation (2020) Hematocrit Auto (Bld) [Volum e fraction]Ordered By: Jairon Medel on 05-29-2024 Hematocrit (Bld) [Volume fraction] 33.4 % Low 37-47 [facility] Hemoglobin measurementOrdere d By: Jairon Medel on 05-29-2024 Hemoglobin (Bld) [Mass/Vol] 10.9 g/dL Low 12.0-15.0 [facility] Immature granulocytes/100 WB C Auto (Bld)Ordered By: Jairon Medel on 05-29-2024 Immature granulocytes/100 WBC (Bld) 0.200 % 0.0-0.9 [facility] Comment on above: IG% - Immature Granu locytes (promyelocytes, myelocytes and metamyelocytes) > 1% indicates that a LEFT SHIFT is Present. Laboratory - Chemistry and C hemistry - challengeOrdered By: Jairon Medel on 05-29-2024 AST [Catalytic activity/Vol] 20 U/L <32 [facility] Lymphocytes Auto (Unsp spec) [#/Vol]Ordered By: Jairon Medel on 05-29-2024 Lymphocytes (Bld) [#/Vol] 2.09 10*3/uL 0.83-4.51 [facility] Lymphocytes/100 WBC Auto (Un sp spec)Ordered By: Jairon Medel on 05-29-2024 Lymphocytes/100 WBC (Bld) 34.4 % 19-41 [facility] MCV (mean corpuscular volume ) determinationOrdered By: Jairon Medel on 05-29-2024 MCV (RBC) [Entitic vol] 85.9 fL 81-99 [facility] Mean corpuscular hemoglobin (MCH) determinationOrdered By: Jairon Medel on 05-29-2024 MCH (RBC) [Entitic mass] 28.0 pg 27.0-32.0 [facility] Mean corpuscular hemoglobin concentration (MCHC) determinationOrdered By: Jairon Medel on 05-29-2024 MCHC (RBC) [Mass/Vol] 32.6 g/dL 32-36 [facility] Mean platelet volume determi nationOrdered By: Jairon Medel on 05-29-2024 Platelet mean volume (Bld) [Entitic vol] 10.3 fL 6.2-12.0 [facility] Monocyte percentageOrdered B y: Jairon Medel on 05-29-2024 Monocytes/100 WBC (Bld) 7.6 % 0-10 [facility] Neutrophil percentageOrdered By: Carrilloghentmakenzie Medel on 05-29-2024 Neutrophils/100 WBC (Bld) 55.0 % 47-70 [facility] Nucleated red blood cell per centageOrdered By: Jairon Medel on 05-29-2024 Nucleated RBC/100 WBC (Bld) [Ratio] 0 % 0-5 [facility] Platelet countOrdered By: Pooja meghanmakenzie Medel on 05-29-2024 Platelets (Bld) [#/Vol] 247 10*3/uL 150-450 [facility] Potassium (Unsp spec) [Mass/ Vol]Ordered By: Jairon Medel on 05-29-2024 Potassium [Moles/Vol] 4.3 mmol/L 3.3-5.1 [facility] Potassium measurement (mass/ volume)Ordered By: Jairon Medel on 05-29-2024 Potassium (Unsp spec) [Mass/Vol] 4.3 mmol/L 3.3-5.1 [facility] RBC Auto (Bld) [#/Vol]Ordere d By: Jairon Medel on 05-29-2024 RBC (Bld) [#/Vol] 3.89 10*6/uL Low 4.2-5.4 [facility] Serum creatinine measurement (mass/volume)Ordered By: Jairon Medel on 05-29-2024 Creatinine [Mass/Vol] 1.08 mg/dL 0.70-1.20 [facility] Serum globulin measurementOr dered By: Jairon Medel on 05-29-2024 Globulin (S) [Mass/Vol] 2.5 g/dL 2.2-4.2 [facility] Serum glucose measurement (m ass/volume)Ordered By: Jairon Medel on 05-29-2024 Glucose [Mass/Vol] 89 mg/dL 70-99 [facility] Serum or plasma alanine crane otransferase (ALT) measurementOrdered By: Jairon Medel on 05-29-2024 ALT [Catalytic activity/Vol] 11 U/L <35 [facility] Serum or plasma albumin krissy urement (mass/volume)Ordered By: Jairon Medel on 05-29-2024 Albumin [Mass/Vol] 4.0 g/dL 3.4-4.8 [facility] Serum or plasma alkaline luis sphatase measurementOrdered By: Jairon Medel on 05-29-2024 ALP [Catalytic activity/Vol] 62 U/L 35-104 [facility] Serum or plasma calcium krissy urement (mass/volume)Ordered By: Jairon Medel on 05-29-2024 Calcium [Mass/Vol] 9.8 mg/dL 7.6-11.0 [facility] Serum or plasma urea nitroge n measurement (mass/volume)Ordered By: Jairon Medel on 05-29-2024 Urea nitrogen [Mass/Vol] 18 mg/dL 4-19 [facility] Sodium levelOrdered By: Carrillo Medel on 05-29-2024 Sodium [Moles/Vol] 140 mmol/L 133-145 [facility] Total proteinOrdered By: Masoud Medel on 05-29-2024 Protein [Mass/Vol] 6.4 g/dL 5.9-8.4 [facility] White blood cell (WBC) count Ordered By: Jairon Medel on 05-29-2024 WBC (Bld) [#/Vol] 6.1 10*3/uL 4.4-11.0 [facility] Absolute lymphocyte countOrd ered By: Jairon Medel on 05-24-2024 Lymphocytes Auto (Unsp spec) [#/Vol] 1.90 10*3/uL 0.83-4.51 [facility] Absolute neutrophil countOrd ered By: Poojasreekanthmahadmakenzie Torojenifersophia on 05-24-2024 Neutrophils (Bld) [#/Vol] 3.1 10*3/uL 2.0-7.7 [facility] Anion gap in Serum or Plasma Ordered By: Jairon Torojenifersophia on 05-24-2024 Anion gap [Moles/Vol] 11 mmol/L 5-15 [facility] Automated lymphocyte count a s percentage of total leukocytesOrdered By: Jairon Torojenifersophia on 05-24-2024 Lymphocytes/100 WBC Auto (Unsp spec) 33.6 % 19-41 [facility] BUN/creatinine ratioOrdered By: Jairon Torojenifersophia on 05-24-2024 Urea nitrogen/Creatinine [Mass ratio] 19.7 mg/mg 10-20 [facility] Basophil percentageOrdered B y: Carrillomahadmakenzie Torojenifersophia on 05-24-2024 Basophils/100 WBC (Bld) 1.1 % High 0-1 [facility] Bilirubin, totalOrdered By: Poojasreekanthmahadmakenzie Torojenifersophia on 05-24-2024 Bilirubin [Mass/Vol] 0.29 mg/dL 0.00-1.30 [facility] Carbon dioxide, total [Moles /volume] in Central venous bloodOrdered By: Jairon Torojenifersophia on 05-24-2024 CO2 [Moles/Vol] 23.5 mmol/L 21.0-32.0 [facility] Chloride assayOrdered By: Pooja sreekanthbraden Torojenifersophia on 05-24-2024 Chloride [Moles/Vol] 106 mmol/L 98-108 [facility] Eosinophil percentageOrdered By: Poojasreekanthmahadmakenzie Torojenifersophia on 05-24-2024 Eosinophils/100 WBC (Bld) 2.1 % 0-5 [facility] Erythrocyte distribution wid th (RBC) [Ratio]Ordered By: Carrillomahadmakenzie Torojenifersophia on 05-24-2024 Erythrocyte distribution width (RBC) [Entitic vol] 41.3 fL 35.1-43.9 [facility] Erythrocyte distribution wid th ratioOrdered By: Jairon Medel on 05-24-2024 Erythrocyte distribution width (RBC) [Ratio] 13.2 % 11.6-14.6 [facility] Erythrocyte distribution wid th standard deviationOrdered By: Jairon Medel on 05-24-2024 Erythrocyte distribution width (RBC) [Ratio] 41.3 fl 35.1-43.9 [facility] GFR/1.73 sq M.predicted hua g non-blacks MDRD (S/P/Bld) [Vol rate/Area]Ordered By: Jairon Medel on 05-24-2024 Estimated GFR (MDRD) Non-Af Amer 52 Low >60 [facility] Comment on above: mL/min/1.73m2 CKD-EP I Creatinine Equation (2020) Glomerular filtration rate ( GFR) estimation/1.73 sq m using serum, plasma, or whole bOrdered By: Jairon Medle on 05-24-2024 GFR/1.73 sq M.predicted among non-blacks MDRD (S/P/Bld) [Vol rate/Area] 52 mL/min/{1.73_m2} Low >60 [facility] Comment on above: mL/min/1.73m2 CKD-EP I Creatinine Equation (2020) Hematocrit Auto (Bld) [Volum e fraction]Ordered By: Jairon Medel on 05-24-2024 Hematocrit (Bld) [Volume fraction] 33.2 % Low 37-47 [facility] Hemoglobin A1c percentageOrd ered By: Jairon Medel on 05-24-2024 HbA1c (Bld) [Mass fraction] 5.5 % <5.7 [facility] Comment on above: Normal < 5.7 % Predi abetic 5.7 - 6.4 % Diabetic >or= 6.5 % Please note range changes. Hemoglobin measurementOrdere d By: Jairon Medel on 05-24-2024 Hemoglobin (Bld) [Mass/Vol] 10.7 g/dL Low 12.0-15.0 [facility] Immature granulocytes/100 WB C Auto (Bld)Ordered By: Jairon Medel on 05-24-2024 Immature granulocytes/100 WBC (Bld) 0.200 % 0.0-0.9 [facility] Comment on above: IG% - Immature Granu locytes (promyelocytes, myelocytes and metamyelocytes) > 1% indicates that a LEFT SHIFT is Present. Laboratory - Chemistry and C hemistry - challengeOrdered By: Jairon Medel on 05-24-2024 AST [Catalytic activity/Vol] 21 U/L <32 [facility] Lymphocytes Auto (Unsp spec) [#/Vol]Ordered By: [facility] on 05-24-2024 Lymphocytes (Bld) [#/Vol] 1.90 10*3/uL 0.83-4.51 [facility] Lymphocytes/100 WBC Auto (Un sp spec)Ordered By: Carrilloghentmakenzie Medel on 05-24-2024 Lymphocytes/100 WBC (Bld) 33.6 % 19-41 [facility] MCV (mean corpuscular volume ) determinationOrdered By: Jairon Medel on 05-24-2024 MCV (RBC) [Entitic vol] 86.2 fL 81-99 [facility] Mean corpuscular hemoglobin (MCH) determinationOrdered By: sreekanthghentmakenzie Medel on 05-24-2024 MCH (RBC) [Entitic mass] 27.8 pg 27.0-32.0 [facility] Mean corpuscular hemoglobin concentration (MCHC) determinationOrdered By: Carrilloghentmakenzie Medel on 05-24-2024 MCHC (RBC) [Mass/Vol] 32.2 g/dL 32-36 [facility] Mean platelet volume determi nationOrdered By: [facility] Medel on 05-24-2024 Platelet mean volume (Bld) [Entitic vol] 10.2 fL 6.2-12.0 [facility] Monocyte percentageOrdered B y: Jairon Medel on 05-24-2024 Monocytes/100 WBC (Bld) 8.1 % 0-10 [facility] Neutrophil percentageOrdered By: Jairon Medel on 05-24-2024 Neutrophils/100 WBC (Bld) 54.9 % 47-70 [facility] Nucleated red blood cell per centageOrdered By: Jairon Medel on 05-24-2024 Nucleated RBC/100 WBC (Bld) [Ratio] 0 % 0-5 [facility] Platelet countOrdered By: Pooja Medel on 05-24-2024 Platelets (Bld) [#/Vol] 264 10*3/uL 150-450 [facility] Potassium (Unsp spec) [Mass/ Vol]Ordered By: Jairon Medel on 05-24-2024 Potassium [Moles/Vol] 3.9 mmol/L 3.3-5.1 [facility] Potassium measurement (mass/ volume)Ordered By: Jairon Medel on 05-24-2024 Potassium (Unsp spec) [Mass/Vol] 3.9 mmol/L 3.3-5.1 [facility] RBC Auto (Bld) [#/Vol]Ordere d By: Jairon Medel on 05-24-2024 RBC (Bld) [#/Vol] 3.85 10*6/uL Low 4.2-5.4 [facility] Serum creatinine measurement (mass/volume)Ordered By: Jairon Medel on 05-24-2024 Creatinine [Mass/Vol] 1.05 mg/dL 0.70-1.20 [facility] Serum globulin measurementOr dered By: Jairon Medel on 05-24-2024 Globulin (S) [Mass/Vol] 2.6 g/dL 2.2-4.2 [facility] Serum glucose measurement (m ass/volume)Ordered By: Jairon Medel on 05-24-2024 Glucose [Mass/Vol] 95 mg/dL 70-99 [facility] Serum or plasma alanine crane otransferase (ALT) measurementOrdered By: Jairon Medel on 05-24-2024 ALT [Catalytic activity/Vol] 11 U/L <35 [facility] Serum or plasma albumin krissy urement (mass/volume)Ordered By: Jairon Medel 05-24-2024 Albumin [Mass/Vol] 4.0 g/dL 3.4-4.8 [facility] Serum or plasma albumin/glob ulin mass ratioOrdered By: Jairon Medel on 05-24-2024 Albumin/Globulin [Mass ratio] 1.5 {ratio} 0.9-2.4 [facility] Serum or plasma alkaline luis sphatase measurementOrdered By: Jairon Medel on 05-24-2024 ALP [Catalytic activity/Vol] 67 U/L 35-104 [facility] Serum or plasma calcium krissy urement (mass/volume)Ordered By: Jairon Medel on 05-24-2024 Calcium [Mass/Vol] 9.9 mg/dL 7.6-11.0 [facility] Serum or plasma urea nitroge n measurement (mass/volume)Ordered By: Jairon Medel on 05-24-2024 Urea nitrogen [Mass/Vol] 21 mg/dL High 4-19 [facility] Sodium levelOrdered By: Carrillo Medel on 05-24-2024 Sodium [Moles/Vol] 141 mmol/L 133-145 [facility] Total proteinOrdered By: Masoud Medel on 05-24-2024 Protein [Mass/Vol] 6.6 g/dL 5.9-8.4 [facility] White blood cell (WBC) count Ordered By: Jairon Medel on 05-24-2024 WBC (Bld) [#/Vol] 5.7 10*3/uL 4.4-11.0 [facility] Anion gap in Serum or Plasma Ordered By: Jairon Medel on 05-15-2024 Anion gap [Moles/Vol] 10 mmol/L 5-15 [facility] BUN/creatinine ratioOrdered By: Jairon Medel on 05-15-2024 Urea nitrogen/Creatinine [Mass ratio] 15.3 mg/mg 10-20 [facility] Carbon dioxide, total [Moles /volume] in Central venous bloodOrdered By: Jairon Medel on 05-15-2024 CO2 [Moles/Vol] 25.0 mmol/L 21.0-32.0 [facility] Chloride assayOrdered By: Pooja Medel on 05-15-2024 Chloride [Moles/Vol] 108 mmol/L 98-108 [facility] GFR/1.73 sq M.predicted hua g non-blacks MDRD (S/P/Bld) [Vol rate/Area]Ordered By: Jairon Medel on 05-15-2024 Estimated GFR (MDRD) Non-Af Amer 57 Low >60 [facility] Comment on above: mL/min/1.73m2 CKD-EP I Creatinine Equation (2020) Glomerular filtration rate ( GFR) estimation/1.73 sq m using serum, plasma, or whole bOrdered By: Jairon Medel on 05-15-2024 GFR/1.73 sq M.predicted among non-blacks MDRD (S/P/Bld) [Vol rate/Area] 57 mL/min/{1.73_m2} Low >60 [facility] Comment on above: mL/min/1.73m2 CKD-EP I Creatinine Equation (2020) Potassium (Unsp spec) [Mass/ Vol]Ordered By: Jairon Medel on 05-15-2024 Potassium [Moles/Vol] 3.8 mmol/L 3.3-5.1 [facility] Potassium measurement (mass/ volume)Ordered By: Jairon Medel on 05-15-2024 Potassium (Unsp spec) [Mass/Vol] 3.8 mmol/L 3.3-5.1 [facility] Serum creatinine measurement (mass/volume)Ordered By: Jairon Medel on 05-15-2024 Creatinine [Mass/Vol] 0.98 mg/dL 0.70-1.20 [facility] Serum glucose measurement (m ass/volume)Ordered By: Jairon Medel on 05-15-2024 Glucose [Mass/Vol] 87 mg/dL 70-99 [facility] Serum or plasma calcium krissy urement (mass/volume)Ordered By: Jairon Medel on 05-15-2024 Calcium [Mass/Vol] 9.8 mg/dL 7.6-11.0 [facility] Serum or plasma urea nitroge n measurement (mass/volume)Ordered By: Jairon Medel on 05-15-2024 Urea nitrogen [Mass/Vol] 15 mg/dL 4-19 [facility] Sodium levelOrdered By: Carrillo Medel on 05-15-2024 Sodium [Moles/Vol] 143 mmol/L 133-145 [facility] Absolute lymphocyte countOrd ered By: Jairon Medel on 05-01-2024 Lymphocytes Auto (Unsp spec) [#/Vol] 1.90 10*3/uL 0.83-4.51 [facility] Absolute neutrophil countOrd ered By: Jairon Medel on 05-01-2024 Neutrophils (Bld) [#/Vol] 2.7 10*3/uL 2.0-7.7 [facility] Anion gap in Serum or Plasma Ordered By: Poojasreekanthmahadmakenzie Torojenifersophia on 05-01-2024 Anion gap [Moles/Vol] 11 mmol/L 5-15 [facility] Automated lymphocyte count a s percentage of total leukocytesOrdered By: Jairon Medel on 05-01-2024 Lymphocytes/100 WBC Auto (Unsp spec) 35.5 % 19-41 [facility] BUN/creatinine ratioOrdered By: Jairon Cortezdorcas on 05-01-2024 Urea nitrogen/Creatinine [Mass ratio] 17.8 mg/mg 10-20 [facility] Basophil percentageOrdered B y: Jairon Medel on 05-01-2024 Basophils/100 WBC (Bld) 1.5 % High 0-1 [facility] Carbon dioxide, total [Moles /volume] in Central venous bloodOrdered By: Poojasreekanthmahadmakenzie Torojenifersophia on 05-01-2024 CO2 [Moles/Vol] 23.3 mmol/L 21.0-32.0 [facility] Chloride assayOrdered By: Pooja meghanmakenzie Torojenifersophia on 05-01-2024 Chloride [Moles/Vol] 107 mmol/L 98-108 [facility] Eosinophil percentageOrdered By: Jairon Cortezjenifersophia on 05-01-2024 Eosinophils/100 WBC (Bld) 2.2 % 0-5 [facility] Erythrocyte distribution wid th (RBC) [Ratio]Ordered By: Poojasreekanthmahadbe Gianfranco on 05-01-2024 Erythrocyte distribution width (RBC) [Entitic vol] 44.5 fL High 35.1-43.9 [facility] Erythrocyte distribution wid th ratioOrdered By: Jairon Medel on 05-01-2024 Erythrocyte distribution width (RBC) [Ratio] 13.0 % 11.6-14.6 [facility] Erythrocyte distribution wid th standard deviationOrdered By: Jairon Medel on 05-01-2024 Erythrocyte distribution width (RBC) [Ratio] 44.5 fl High 35.1-43.9 [facility] GFR/1.73 sq M.predicted hua g non-blacks MDRD (S/P/Bld) [Vol rate/Area]Ordered By: Jairon Medel on 05-01-2024 Estimated GFR (MDRD) Non-Af Amer 58 Low >60 [facility] Comment on above: mL/min/1.73m2 CKD-EP I Creatinine Equation (2020) Glomerular filtration rate ( GFR) estimation/1.73 sq m using serum, plasma, or whole bOrdered By: Jairon Medel on 05-01-2024 GFR/1.73 sq M.predicted among non-blacks MDRD (S/P/Bld) [Vol rate/Area] 58 mL/min/{1.73_m2} Low >60 [facility] Comment on above: mL/min/1.73m2 CKD-EP I Creatinine Equation (2020) Hematocrit Auto (Bld) [Volum e fraction]Ordered By: Jairon Medel 05-01-2024 Hematocrit (Bld) [Volume fraction] 37.3 % 37-47 [facility] Hemoglobin measurementOrdere d By: Jairon Medel on 05-01-2024 Hemoglobin (Bld) [Mass/Vol] 11.3 g/dL Low 12.0-15.0 [facility] Immature granulocytes/100 WB C Auto (Bld)Ordered By: Jairon Medel on 05-01-2024 Immature granulocytes/100 WBC (Bld) 1.100 % High 0.0-0.9 [facility] Comment on above: IG% - Immature Granu locytes (promyelocytes, myelocytes and metamyelocytes) > 1% indicates that a LEFT SHIFT is Present. Lymphocytes Auto (Unsp spec) [#/Vol]Ordered By: Jairon Medel on 05-01-2024 Lymphocytes (Bld) [#/Vol] 1.90 10*3/uL 0.83-4.51 [facility] Lymphocytes/100 WBC Auto (Un sp spec)Ordered By: Jairon Medel on 05-01-2024 Lymphocytes/100 WBC (Bld) 35.5 % 19-41 [facility] MCV (mean corpuscular volume ) determinationOrdered By: Jairon Medel on 05-01-2024 MCV (RBC) [Entitic vol] 93.5 fL 81-99 [facility] Mean corpuscular hemoglobin (MCH) determinationOrdered By: Jairon Medel on 05-01-2024 MCH (RBC) [Entitic mass] 28.3 pg 27.0-32.0 [facility] Mean corpuscular hemoglobin concentration (MCHC) determinationOrdered By: Jairon Medel on 05-01-2024 MCHC (RBC) [Mass/Vol] 30.3 g/dL Low 32-36 [facility] Mean platelet volume determi nationOrdered By: Jairon Medel on 05-01-2024 Platelet mean volume (Bld) [Entitic vol] 10.2 fL 6.2-12.0 [facility] Monocyte percentageOrdered B y: Jairon Medel on 05-01-2024 Monocytes/100 WBC (Bld) 9.0 % 0-10 [facility] Neutrophil percentageOrdered By: Jairon Medel on 05-01-2024 Neutrophils/100 WBC (Bld) 50.7 % 47-70 [facility] Nucleated red blood cell per centageOrdered By: Jairon Medel on 05-01-2024 Nucleated RBC/100 WBC (Bld) [Ratio] 0 % 0-5 [facility] Platelet countOrdered By: Pooja Medel on 05-01-2024 Platelets (Bld) [#/Vol] 235 10*3/uL 150-450 [facility] Potassium (Unsp spec) [Mass/ Vol]Ordered By: Poojasreekanthmahadmakenzie Torojenifersophia on 05-01-2024 Potassium [Moles/Vol] 4.3 mmol/L 3.3-5.1 [facility] Potassium measurement (mass/ volume)Ordered By: Poojasreekanthbraden Medel on 05-01-2024 Potassium (Unsp spec) [Mass/Vol] 4.3 mmol/L 3.3-5.1 [facility] RBC Auto (Bld) [#/Vol]Ordere d By: Jairon Cortezdorcas on 05-01-2024 RBC (Bld) [#/Vol] 3.99 10*6/uL Low 4.2-5.4 [facility] Serum creatinine measurement (mass/volume)Ordered By: Poojasreekanthmahadmakenzie Torojenifersophia on 05-01-2024 Creatinine [Mass/Vol] 0.96 mg/dL 0.70-1.20 [facility] Serum glucose measurement (m ass/volume)Ordered By: Jairon Torojenifersophia on 05-01-2024 Glucose [Mass/Vol] 89 mg/dL 70-99 [facility] Serum or plasma calcium krissy urement (mass/volume)Ordered By: Poojasreekanthbraden Cortezdorcas on 05-01-2024 Calcium [Mass/Vol] 9.8 mg/dL 7.6-11.0 [facility] Serum or plasma urea nitroge n measurement (mass/volume)Ordered By: Poojamargarette Torojenifersophia on 05-01-2024 Urea nitrogen [Mass/Vol] 17 mg/dL 4-19 [facility] Sodium levelOrdered By: Carrillo feliciano Cortezjenifersophia on 05-01-2024 Sodium [Moles/Vol] 141 mmol/L 133-145 [facility] White blood cell (WBC) count Ordered By: Poojasreekanthmahadmakenzie Torojenifersophia on 05-01-2024 WBC (Bld) [#/Vol] 5.4 10*3/uL 4.4-11.0 [facility] Absolute lymphocyte countOrd ered By: Jairon Torojenifersophia on 04-03-2024 Lymphocytes Auto (Unsp spec) [#/Vol] 1.70 10*3/uL 0.83-4.51 [facility] Absolute neutrophil countOrd ered By: Jairon Medel on 04-03-2024 Neutrophils (Bld) [#/Vol] 3.0 10*3/uL 2.0-7.7 [facility] Automated lymphocyte count a s percentage of total leukocytesOrdered By: Jairon Medel on 04-03-2024 Lymphocytes/100 WBC Auto (Unsp spec) 32.1 % 19-41 [facility] Basophil percentageOrdered B y: Jairon Medel on 04-03-2024 Basophils/100 WBC (Bld) 1.3 % High 0-1 [facility] Blood urea nitrogen (BUN)/cr eatinine ratioOrdered By: Jairon Medel on 04-03-2024 Urea nitrogen/Creatinine [Mass ratio] 21.1 mg/mg High 10-20 [facility] Carbon dioxide measurementOr dered By: Jairon Medel on 04-03-2024 CO2 [Moles/Vol] 27.0 mmol/L 21.0-32.0 [facility] Chloride measurementOrdered By: Jairon Medel on 04-03-2024 Chloride [Moles/Vol] 111 mmol/L High 98-107 [facility] Eosinophil percentageOrdered By: Jairon Medel on 04-03-2024 Eosinophils/100 WBC (Bld) 2.3 % 0-5 [facility] Erythrocyte distribution wid th (RBC) [Ratio]Ordered By: Jairon Medel on 04-03-2024 Erythrocyte distribution width (RBC) [Entitic vol] 43.2 fL 35.1-43.9 [facility] Erythrocyte distribution wid th ratioOrdered By: Jairon Medel on 04-03-2024 Erythrocyte distribution width (RBC) [Ratio] 13.2 % 11.6-14.6 [facility] Erythrocyte distribution wid th standard deviationOrdered By: Jairon Medel on 04-03-2024 Erythrocyte distribution width (RBC) [Ratio] 43.2 fl 35.1-43.9 [facility] Estimated glomerular filtrat ion rate (GFR) AmericanOrdered By: Jairon Medel on 04-03-2024 Estimated GFR (MDRD) Amer 72 mL/min >60 [facility] Comment on above: GFR Calc Glomerular filtration rate ( GFR) estimationOrdered By: Jairon Medel on 04-03-2024 Estimated GFR (MDRD) Non-Af Amer 59 mL/min Low >60 [facility] Comment on above: Non- GFR Calc GFR/1.73 sq M.predicted among non-blacks MDRD (S/P/Bld) [Vol rate/Area] 59 mL/min/{1.73_m2} Low >60 [facility] Comment on above: Non- GFR Calc Glucose measurementOrdered B y: Jairon Medel on 04-03-2024 Glucose [Mass/Vol] 93 mg/dL 74-106 [facility] Hematocrit Auto (Bld) [Volum e fraction]Ordered By: Jairon Medel on 04-03-2024 Hematocrit (Bld) [Volume fraction] 31.6 % Low 37-47 [facility] Hemoglobin measurementOrdere d By: Jairon Medel on 04-03-2024 Hemoglobin (Bld) [Mass/Vol] 9.7 g/dL Low 12.0-15.0 [facility] Immature granulocytes/100 WB C Auto (Bld)Ordered By: Jairon Medel on 04-03-2024 Immature granulocytes/100 WBC (Bld) 0.200 % 0.0-0.9 [facility] Comment on above: IG% - Immature Granu locytes (promyelocytes, myelocytes and metamyelocytes) > 1% indicates that a LEFT SHIFT is Present. Lymphocytes Auto (Unsp spec) [#/Vol]Ordered By: Jairon Medel on 04-03-2024 Lymphocytes (Bld) [#/Vol] 1.70 10*3/uL 0.83-4.51 [facility] Lymphocytes/100 WBC Auto (Un sp spec)Ordered By: Jairon Medel on 04-03-2024 Lymphocytes/100 WBC (Bld) 32.1 % 19-41 [facility] MCV (mean corpuscular volume ) determinationOrdered By: Jairon Medel on 04-03-2024 MCV (RBC) [Entitic vol] 91.1 fL 81-99 [facility] Mean corpuscular hemoglobin (MCH) determinationOrdered By: Jairon Medel on 04-03-2024 MCH (RBC) [Entitic mass] 28.0 pg 27.0-32.0 [facility] Mean corpuscular hemoglobin concentration (MCHC) determinationOrdered By: Jairon Medel on 04-03-2024 MCHC (RBC) [Mass/Vol] 30.7 g/dL Low 32-36 [facility] Mean platelet volume determi nationOrdered By: Jairon eMdel on 04-03-2024 Platelet mean volume (Bld) [Entitic vol] 9.9 fL 6.2-12.0 [facility] Monocyte percentageOrdered B y: Jairon Medel on 04-03-2024 Monocytes/100 WBC (Bld) 8.3 % 0-10 [facility] Neutrophil percentageOrdered By: Jairon Medel on 04-03-2024 Neutrophils/100 WBC (Bld) 55.8 % 47-70 [facility] Nucleated red blood cell per centageOrdered By: Jairon Medel on 04-03-2024 Nucleated RBC/100 WBC (Bld) [Ratio] 0 % 0-5 [facility] Platelet countOrdered By: Pooja Medel on 04-03-2024 Platelets (Bld) [#/Vol] 229 10*3/uL 150-450 [facility] Potassium measurementOrdered By: Jairon Medel on 04-03-2024 Potassium [Moles/Vol] 4.4 mmol/L 3.5-5.1 [facility] RBC Auto (Bld) [#/Vol]Ordere d By: Jairon Medel on 04-03-2024 RBC (Bld) [#/Vol] 3.47 10*6/uL Low 4.2-5.4 [facility] Serum anion gap measurementO rdered By: Jairon Medel on 04-03-2024 Anion gap [Moles/Vol] 6 mmol/L 5-15 [facility] Serum or plasma calcium krissy urement (mass/volume)Ordered By: Efmargarette Torojenifersophia on 04-03-2024 Calcium [Mass/Vol] 9.4 mg/dL 8.5-10.1 [facility] Serum or plasma creatinine m easurement (mass/volume)Ordered By: Goldiemakenzie Torojenifersophia on 04-03-2024 Creatinine [Mass/Vol] 0.95 mg/dL 0.55-1.02 [facility] Comment on above: The validity of the calculated GFR & GFRAA in patients over 70 years has not been determined. Clinical correlation is essential. Serum or plasma urea nitroge n measurement (mass/volume)Ordered By: Jairon Medel on 04-03-2024 Urea nitrogen [Mass/Vol] 20 mg/dL High 7-18 [facility] Sodium levelOrdered By: Poojasreekanth braden Cortezjenifersophia on 04-03-2024 Sodium [Moles/Vol] 144 mmol/L 136-145 [facility] White blood cell (WBC) count Ordered By: Poojasreekanthmahadmakenzie Torojenifersophia on 04-03-2024 WBC (Bld) [#/Vol] 5.3 10*3/uL 4.4-11.0 [facility] Absolute lymphocyte countOrd ered By: Poojasreekanthmahadmakenzie Torojenifersophia on 03-27-2024 Lymphocytes Auto (Unsp spec) [#/Vol] 2.06 10*3/uL 0.83-4.51 [facility] Absolute neutrophil countOrd ered By: sreekanthmahadmakenzie Torojenifersophia on 03-27-2024 Neutrophils (Bld) [#/Vol] 3.3 10*3/uL 2.0-7.7 [facility] Automated lymphocyte count a s percentage of total leukocytesOrdered By: Jairon Torojenifersophia on 03-27-2024 Lymphocytes/100 WBC Auto (Unsp spec) 33.5 % 19-41 [facility] Basophil percentageOrdered B y: Goldiemakenzie Torojenifersophia on 03-27-2024 Basophils/100 WBC (Bld) 0.8 % 0-1 [facility] Blood urea nitrogen (BUN)/cr eatinine ratioOrdered By: Poojasreekanthmahadmakenzie Torojenifersophia on 03-27-2024 Urea nitrogen/Creatinine [Mass ratio] 19.3 mg/mg 10-20 [facility] Carbon dioxide measurementOr dered By: Jairon Medel on 03-27-2024 CO2 [Moles/Vol] 27.0 mmol/L 21.0-32.0 [facility] Chloride measurementOrdered By: Jairon Medel on 03-27-2024 Chloride [Moles/Vol] 110 mmol/L High 98-107 [facility] Eosinophil percentageOrdered By: Jairon Medel on 03-27-2024 Eosinophils/100 WBC (Bld) 2.3 % 0-5 [facility] Erythrocyte distribution wid th (RBC) [Ratio]Ordered By: Jairon Medel on 03-27-2024 Erythrocyte distribution width (RBC) [Entitic vol] 43.7 fL 35.1-43.9 [facility] Erythrocyte distribution wid th ratioOrdered By: Jairon Medel on 03-27-2024 Erythrocyte distribution width (RBC) [Ratio] 13.2 % 11.6-14.6 [facility] Erythrocyte distribution wid th standard deviationOrdered By: Jairon Medel on 03-27-2024 Erythrocyte distribution width (RBC) [Ratio] 43.7 fl 35.1-43.9 [facility] Estimated glomerular filtrat ion rate (GFR) AmericanOrdered By: Jairon Medel on 03-27-2024 Estimated GFR (MDRD) Amer 69 mL/min >60 [facility] Comment on above: GFR Calc Glomerular filtration rate ( GFR) estimationOrdered By: Jairon Medel on 03-27-2024 Estimated GFR (MDRD) Non-Af Amer 57 mL/min Low >60 [facility] Comment on above: Non- GFR Calc GFR/1.73 sq M.predicted among non-blacks MDRD (S/P/Bld) [Vol rate/Area] 57 mL/min/{1.73_m2} Low >60 [facility] Comment on above: Non- GFR Calc Glucose measurementOrdered B y: Jairon Medel on 03-27-2024 Glucose [Mass/Vol] 89 mg/dL 74-106 [facility] Hematocrit Auto (Bld) [Volum e fraction]Ordered By: Jairon Medel on 03-27-2024 Hematocrit (Bld) [Volume fraction] 30.9 % Low 37-47 [facility] Hemoglobin measurementOrdere d By: Jairon Medel on 03-27-2024 Hemoglobin (Bld) [Mass/Vol] 9.6 g/dL Low 12.0-15.0 [facility] Immature granulocytes/100 WB C Auto (Bld)Ordered By: Jairon Medel on 03-27-2024 Immature granulocytes/100 WBC (Bld) 0.500 % 0.0-0.9 [facility] Comment on above: IG% - Immature Granu locytes (promyelocytes, myelocytes and metamyelocytes) > 1% indicates that a LEFT SHIFT is Present. Lymphocytes Auto (Unsp spec) [#/Vol]Ordered By: Jairon Medel on 03-27-2024 Lymphocytes (Bld) [#/Vol] 2.06 10*3/uL 0.83-4.51 [facility] Lymphocytes/100 WBC Auto (Un sp spec)Ordered By: Jairon Medel on 03-27-2024 Lymphocytes/100 WBC (Bld) 33.5 % 19-41 [facility] MCV (mean corpuscular volume ) determinationOrdered By: Jairon Medel on 03-27-2024 MCV (RBC) [Entitic vol] 90.1 fL 81-99 [facility] Mean corpuscular hemoglobin (MCH) determinationOrdered By: Jairon Medel on 03-27-2024 MCH (RBC) [Entitic mass] 28.0 pg 27.0-32.0 [facility] Mean corpuscular hemoglobin concentration (MCHC) determinationOrdered By: Jairon Medel on 03-27-2024 MCHC (RBC) [Mass/Vol] 31.1 g/dL Low 32-36 [facility] Mean platelet volume determi nationOrdered By: Jairon Medel on 03-27-2024 Platelet mean volume (Bld) [Entitic vol] 10.2 fL 6.2-12.0 [facility] Monocyte percentageOrdered B y: Jairon Medel on 03-27-2024 Monocytes/100 WBC (Bld) 9.6 % 0-10 [facility] Neutrophil percentageOrdered By: Jairon Medel on 03-27-2024 Neutrophils/100 WBC (Bld) 53.3 % 47-70 [facility] Nucleated red blood cell per centageOrdered By: Jairon Medel on 03-27-2024 Nucleated RBC/100 WBC (Bld) [Ratio] 0 % 0-5 [facility] Platelet countOrdered By: Pooja Medel on 03-27-2024 Platelets (Bld) [#/Vol] 235 10*3/uL 150-450 [facility] Potassium measurementOrdered By: Jairon Medel on 03-27-2024 Potassium [Moles/Vol] 4.0 mmol/L 3.5-5.1 [facility] RBC Auto (Bld) [#/Vol]Ordere d By: Jairon Medel on 03-27-2024 RBC (Bld) [#/Vol] 3.43 10*6/uL Low 4.2-5.4 [facility] Serum anion gap measurementO rdered By: Jairon Medel on 03-27-2024 Anion gap [Moles/Vol] 6 mmol/L 5-15 [facility] Serum or plasma calcium krissy urement (mass/volume)Ordered By: Jairon Medel on 03-27-2024 Calcium [Mass/Vol] 9.3 mg/dL 8.5-10.1 [facility] Serum or plasma creatinine m easurement (mass/volume)Ordered By: Jairon Medel on 03-27-2024 Creatinine [Mass/Vol] 0.98 mg/dL 0.55-1.02 [facility] Comment on above: The validity of the calculated GFR & GFRAA in patients over 70 years has not been determined. Clinical correlation is essential. Serum or plasma urea nitroge n measurement (mass/volume)Ordered By: Jairon Medel on 03-27-2024 Urea nitrogen [Mass/Vol] 19 mg/dL High 7-18 [facility] Sodium levelOrdered By: Carrillo Medel on 03-27-2024 Sodium [Moles/Vol] 143 mmol/L 136-145 [facility] White blood cell (WBC) count Ordered By: Jairon Medel on 03-27-2024 WBC (Bld) [#/Vol] 6.2 10*3/uL 4.4-11.0 [facility] 56-CC-Dzbcptw DOrdered By: Sophia Medel on 02-28-2024 Vitamin [...] Auto (Unsp spec) [#/Vol] 1.75 10*3/uL 0.83-4.51 [facility] Absolute neutrophil countOrd ered By: Jairon Medel on 02-28-2024 Neutrophils (Bld) [#/Vol] 3.9 10*3/uL 2.0-7.7 [facility] Albumin to globulin ratioOrd ered By: Jairon Medel on 02-28-2024 Albumin/Globulin [Mass ratio] 1.0 {ratio} 0.9-2.4 [facility] Automated lymphocyte count a s percentage of total leukocytesOrdered By: Jairon Medel on 02-28-2024 Lymphocytes/100 WBC Auto (Unsp spec) 27.3 % 19-41 [facility] Basophil percentageOrdered B y: Jairon Medel on 02-28-2024 Basophils/100 WBC (Bld) 0.8 % 0-1 [facility] Bilirubin, totalOrdered By: Jairon Medel on 02-28-2024 Bilirubin [Mass/Vol] 0.20 mg/dL 0.20-1.00 [facility] Comment on above: For patients on eltr ombopag therapy, use of Dimension [place] TBIL is not recommended. Blood urea nitrogen (BUN)/cr eatinine ratioOrdered By: Jairon Medel on 02-28-2024 Urea nitrogen/Creatinine [Mass ratio] 24.1 mg/mg High 10-20 [facility] Carbon dioxide measurementOr dered By: Jairon Medel on 02-28-2024 CO2 [Moles/Vol] 27.0 mmol/L 21.0-32.0 [facility] Chloride measurementOrdered By: Jairon Medel on 02-28-2024 Chloride [Moles/Vol] 111 mmol/L High 98-107 [facility] Eosinophil percentageOrdered By: Jairon Medel on 02-28-2024 Eosinophils/100 WBC (Bld) 2.3 % 0-5 [facility] Erythrocyte distribution wid th (RBC) [Ratio]Ordered By: Jairon Medel on 02-28-2024 Erythrocyte distribution width (RBC) [Entitic vol] 43.7 fL 35.1-43.9 [facility] Erythrocyte distribution wid th ratioOrdered By: Jairon Medel on 02-28-2024 Erythrocyte distribution width (RBC) [Ratio] 13.4 % 11.6-14.6 [facility] Erythrocyte distribution wid th standard deviationOrdered By: [facility] Medel on 02-28-2024 Erythrocyte distribution width (RBC) [Ratio] 43.7 fl 35.1-43.9 [facility] Estimated glomerular filtrat ion rate (GFR) AmericanOrdered By: Jairon Medel on 02-28-2024 Estimated GFR (MDRD) Amer 72 mL/min >60 [facility] Comment on above: GFR Calc Glomerular filtration rate ( GFR) estimationOrdered By: Jairon Medel on 02-28-2024 Estimated GFR (MDRD) Non-Af Amer 59 mL/min Low >60 [facility] Comment on above: Non- GFR Calc GFR/1.73 sq M.predicted among non-blacks MDRD (S/P/Bld) [Vol rate/Area] 59 mL/min/{1.73_m2} Low >60 [facility] Comment on above: Non- GFR Calc Glucose measurementOrdered B y: Jairon Medel on 02-28-2024 Glucose [Mass/Vol] 93 mg/dL 74-106 [facility] Hematocrit Auto (Bld) [Volum e fraction]Ordered By: Poojasreekanthmahadmakenzie Torojenifersophia on 02-28-2024 Hematocrit (Bld) [Volume fraction] 32.1 % Low 37-47 [facility] Hemoglobin measurementOrdere d By: Poojasreekanthmahadmakenzie Torojenifersophia on 02-28-2024 Hemoglobin (Bld) [Mass/Vol] 9.9 g/dL Low 12.0-15.0 [facility] High density lipoprotein (HD L) measurementOrdered By: Jairon Medel on 02-28-2024 Cholesterol in HDL [Mass/Vol] 58 mg/dL >40 [facility] Comment on above: The drugs N-Acetylcy steine and Metamizole may falsely depress this assay. Reference Range HDL <40 mg/dL Low HDL Cholesterol HDL >or= 60 mg/dL High HDL Cholesterol Immature granulocytes/100 WB C Auto (Bld)Ordered By: Jairon Medel on 02-28-2024 Immature granulocytes/100 WBC (Bld) 0.300 % 0.0-0.9 [facility] Comment on above: IG% - Immature Granu locytes (promyelocytes, myelocytes and metamyelocytes) > 1% indicates that a LEFT SHIFT is Present. Laboratory - Chemistry and C hemistry - challengeOrdered By: Poojamargarette Medel on 02-28-2024 AST [Catalytic activity/Vol] 15 U/L 15-37 [facility] Low density lipoprotein (LDL ) cholesterol measurementOrdered By: Jairon Torojenifersophia on 02-28-2024 Cholesterol in LDL [Mass/Vol] 67 mg/dL 0-130 [facility] Lymphocytes Auto (Unsp spec) [#/Vol]Ordered By: Poojamargarette Torojenifersophia on 02-28-2024 Lymphocytes (Bld) [#/Vol] 1.75 10*3/uL 0.83-4.51 [facility] Lymphocytes/100 WBC Auto (Un sp spec)Ordered By: Jairon Medel on 02-28-2024 Lymphocytes/100 WBC (Bld) 27.3 % 19-41 [facility] MCV (mean corpuscular volume ) determinationOrdered By: Jairon Medel on 02-28-2024 MCV (RBC) [Entitic vol] 89.4 fL 81-99 [facility] Mean corpuscular hemoglobin (MCH) determinationOrdered By: Jairon Medel on 02-28-2024 MCH (RBC) [Entitic mass] 27.6 pg 27.0-32.0 [facility] Mean corpuscular hemoglobin concentration (MCHC) determinationOrdered By: Jairon Medel on 02-28-2024 MCHC (RBC) [Mass/Vol] 30.8 g/dL Low 32-36 [facility] Mean platelet volume determi nationOrdered By: Jairon Medel on 02-28-2024 Platelet mean volume (Bld) [Entitic vol] 9.6 fL 6.2-12.0 [facility] Monocyte percentageOrdered B y: Jairon Medel on 02-28-2024 Monocytes/100 WBC (Bld) 8.7 % 0-10 [facility] Neutrophil percentageOrdered By: Jairon Medel on 02-28-2024 Neutrophils/100 WBC (Bld) 60.6 % 47-70 [facility] Nucleated red blood cell per centageOrdered By: Jairon Medel on 02-28-2024 Nucleated RBC/100 WBC (Bld) [Ratio] 0 % 0-5 [facility] Platelet countOrdered By: Pooja Medel on 02-28-2024 Platelets (Bld) [#/Vol] 261 10*3/uL 150-450 [facility] Potassium measurementOrdered By: Jairon Medel on 02-28-2024 Potassium [Moles/Vol] 4.1 mmol/L 3.5-5.1 [facility] RBC Auto (Bld) [#/Vol]Ordere d By: Jairon Medel on 02-28-2024 RBC (Bld) [#/Vol] 3.59 10*6/uL Low 4.2-5.4 [facility] Serum anion gap measurementO rdered By: Jairon Medel on 02-28-2024 Anion gap [Moles/Vol] 4 mmol/L Low 5-15 [facility] Serum globulin measurementOr dered By: Jairon Medel on 02-28-2024 Globulin (S) [Mass/Vol] 2.9 g/dL 2.2-4.2 [facility] Serum or plasma alanine crane otransferase (ALT) measurementOrdered By: Jairon Medel on 02-28-2024 ALT [Catalytic activity/Vol] 17 U/L 13-56 [facility] Serum or plasma albumin krissy urement (mass/volume)Ordered By: Jairon Medel on 02-28-2024 Albumin [Mass/Vol] 2.8 g/dL Low 3.2-5.0 [facility] Serum or plasma alkaline luis sphatase measurementOrdered By: Jairon Medel on 02-28-2024 ALP [Catalytic activity/Vol] 63 U/L 45-117 [facility] Serum or plasma calcium krissy urement (mass/volume)Ordered By: Jairon Medel on 02-28-2024 Calcium [Mass/Vol] 9.6 mg/dL 8.5-10.1 [facility] Serum or plasma cholesterol measurement (mass/volume)Ordered By: Jairon Medel on 02-28-2024 Cholesterol [Mass/Vol] 134 mg/dL <200 [facility] Comment on above: <200 mg/dL Desirable 200-240 mg/dL Borderline >240 mg/dL High Risk Serum or plasma creatinine m easurement (mass/volume)Ordered By: Jairon Medel on 02-28-2024 Creatinine [Mass/Vol] 0.95 mg/dL 0.55-1.02 [facility] Comment on above: The validity of the calculated GFR & GFRAA in patients over 70 years has not been determined. Clinical correlation is essential. Serum or plasma urea nitroge n measurement (mass/volume)Ordered By: Jairon Medel on 02-28-2024 Urea nitrogen [Mass/Vol] 23 mg/dL High 7-18 [facility] Sodium levelOrdered By: Carrillo Medel on 02-28-2024 Sodium [Moles/Vol] 143 mmol/L 136-145 [facility] Total proteinOrdered By: Masoud rosales Cortezdorcas on 02-28-2024 Protein [Mass/Vol] 5.7 g/dL Low 6.4-8.2 [facility] Triglycerides measurementOrd ered By: Jairon Cortezdorcas on 02-28-2024 Triglyceride [Mass/Vol] 43 mg/dL <199 [facility] Comment on above: The drugs N-Acetylcy steine and Metamizole may falsely depress this assay.Serum Triglycerides Reference Interval Normal <150 mg/dL Borderline high 150 - 199 mg/dL High 200 - 499 mg/dL Very High > or = 500 mg/dL Valproate levelOrdered By: Sophia claudia Gianfranco on 02-28-2024 Valproic Acid (Depakene) Level 26 ug/mL Low 50-100 [facility] Very low density lipoprotein (VLDL) cholesterol measurementOrdered By: Jairon Cortezjenifersophia on 02-28-2024 Very low density lipoprotein (VLDL) cholesterol measurement 9 mg/dL 5-40 [facility] VLDL Cholesterol 9 mg/dL 5-40 [facility] White blood cell (WBC) count Ordered By: Jairon Gianfranco on 02-28-2024 WBC (Bld) [#/Vol] 6.4 10*3/uL 4.4-11.0 [facility] .Auto Diffon 02-10-2024 Basophil, Absolute 0.1 10 3/mcL Normal 0.0-0.2 [facility] Comment on above: Performed By: #### B MP, MG, ANEU, ADIFF, CBC, GFR ####[address] [place], [place] [address] Basophils/100 WBC (Bld) 1.1 % Normal 0.0-2.5 [facility] Comment on above: Performed By: #### B MP, MG, ANEU, ADIFF, CBC, GFR ####[address] [place], [place] [address] Eosinophil, Absolute 0.1 10 3/mcL Normal 0.0-0.7 [facility] Comment on above: Performed By: #### B MP, MG, ANEU, ADIFF, CBC, GFR ####[place] [address] [address] Eosinophils/100 WBC (Bld) 1.8 % Normal 0.0-7.0 [facility] Comment on above: Performed By: #### B MP, MG, ANEU, ADIFF, CBC, GFR ####[place] [address] [place], [place] [address] Lymphocyte, Absolute 1.4 10 3/mcL Normal 0.9-4.3 [facility] Comment on above: Performed By: #### B MP, MG, ANEU, ADIFF, CBC, GFR ####[address] [place], [place] [address] Lymphocytes/100 WBC (Bld) 25.4 % Normal 20.0-40.0 [facility] Comment on above: Performed By: #### B MP, MG, ANEU, ADIFF, CBC, GFR ####[place] [address] [address] Monocyte, Absolute 0.4 10 3/mcL Normal 0.1-1.4 [facility] Comment on above: Performed By: #### B MP, MG, ANEU, ADIFF, CBC, GFR ####[address] [place], [place] [address] Monocytes/100 WBC (Bld) 7.4 % Normal 2.0-13.0 [facility] Comment on above: Performed By: #### B MP, MG, ANEU, ADIFF, CBC, GFR ####[place] [address] [place], [place] [address] Neutrophils/100 WBC (Bld) 64.3 % Normal 50.0-75.0 [facility] Comment on above: Performed By: #### B MP, MG, ANEU, ADIFF, CBC, GFR ####[place] [address] [place], [place] [address] .GFRon 02-10-2024 GFR 73 ml/min/1.73sqm Normal [facility] Comment on above: Result Comment: [...] MG, ANEU, ADIFF, CBC, GFR ####[facility] [place], [place] [address] GFR Non- 60 ml/min/1.73sqm Normal [facility] Comment on above: Result Comment: [...] MG, ANEU, ADIFF, CBC, GFR ####[facility] [place], [place] [address] .NEUABSon 02-10-2024 Neutrophil, Absolute 3.7 10 3/mcL Normal 2.3-8.1 [facility] Comment on above: Performed By: #### B MP, MG, ANEU, ADIFF, CBC, GFR ####[place] [address] [place], [place] [address] BMPon 02-10-2024 BUN/Creatinine Ratio 25 ratio Normal 7-27 [facility] Comment on above: Performed By: #### B MP, MG, ANEU, ADIFF, CBC, GFR ####[place] [address] [address] Calcium [Mass/Vol] 10.0 mg/dL Normal 8.4-10.2 [facility] Comment on above: Performed By: #### B MP, MG, ANEU, ADIFF, CBC, GFR ####[place] [address] [address] Chloride [Moles/Vol] 107 mmol/L Normal 98-107 [facility] Comment on above: Performed By: #### B MP, MG, ANEU, ADIFF, CBC, GFR ####[place] [address] [address] CO2 [Moles/Vol] 30 mmol/L Normal 23-31 [facility] Comment on above: Performed By: #### B MP, MG, ANEU, ADIFF, CBC, GFR ####[place] [address] [address] Creatinine [Mass/Vol] 0.89 mg/dL Normal 0.55-1.02 [facility] Comment on above: Result Comment: Test ing performed on Siemens Dimension EXL analyzer using a modified kinetic Dora technique. Performed By: #### B MP, MG, ANEU, ADIFF, CBC, GFR ####[place] [address] [address] Electrolyte Balance 8.0 mEq/L Normal 4.0-15.0 [facility] Comment on above: Performed By: #### B MP, MG, ANEU, ADIFF, CBC, GFR ####[place] [address] [address] Glucose [Mass/Vol] 111 mg/dL High 83-110 [facility] Comment on above: Performed By: #### B MP, MG, ANEU, ADIFF, CBC, GFR ####[place] [address] [address] Potassium [Moles/Vol] 4.0 mmol/L Normal 3.5-5.1 [facility] Comment on above: Performed By: #### B MP, MG, ANEU, ADIFF, CBC, GFR ####[place] [address] [place], [place] [address] Sodium [Moles/Vol] 145 mmol/L Normal 136-145 [facility] Comment on above: Performed By: #### B MP, MG, ANEU, ADIFF, CBC, GFR ####[place] [address] [place], [place] [address] Urea nitrogen [Mass/Vol] 22 mg/dL High 7-18 [facility] Comment on above: Performed By: #### B MP, MG, ANEU, ADIFF, CBC, GFR ####[place] [address] [place], [place] [address] CBCon 02-10-2024 Erythrocyte distribution width (RBC) [Ratio] 14.1 % Normal 11.5-15.5 [facility] Comment on above: Performed By: #### B MP, MG, ANEU, ADIFF, CBC, GFR ####[place] [address] [address] Hematocrit (Bld) [Volume fraction] 33.2 % Low 34.0-46.0 [facility] Comment on above: Performed By: #### B MP, MG, ANEU, ADIFF, CBC, GFR ####[place] [address] [place], [place] [address] Hgb 11.3 G/dL Low 12.0-16.0 [facility] Comment on above: Performed By: #### B MP, MG, ANEU, ADIFF, CBC, GFR ####[place] [address] [address] MCH (RBC) [Entitic mass] 28.8 pg Normal 27.0-33.0 [facility] Comment on above: Performed By: #### B MP, MG, ANEU, ADIFF, CBC, GFR ####[place] [address] [place], [place] [address] MCHC 34.1 G/dL Normal 32.0-36.0 [facility] Comment on above: Performed By: #### B MP, MG, ANEU, ADIFF, CBC, GFR ####[facility] [place], [place] [address] MCV (RBC) [Entitic vol] 84.5 fL Normal 80.0-99.0 [facility] Comment on above: Performed By: #### B MP, MG, ANEU, ADIFF, CBC, GFR ####[place] [place] [id number] Platelet 272 10 3/mcL Normal 150-450 [facility] Comment on above: Performed By: #### B MP, MG, ANEU, ADIFF, CBC, GFR ####[address] [place] [address] Platelet mean volume (Bld) [Entitic vol] 7.7 fL Normal 6.6-10.5 [facility] Comment on above: Performed By: #### B MP, MG, ANEU, ADIFF, CBC, GFR ####[place] [place] [address] RBC 3.93 10 6/mcL Low 4.10-5.30 [facility] Comment on above: Performed By: #### B MP, MG, ANEU, ADIFF, CBC, GFR ####[place] [place] [id number] WBC 5.7 10 3/mcL Normal 4.5-10.8 [facility] Comment on above: Performed By: #### B MP, MG, ANEU, ADIFF, CBC, GFR ####[address] [place], [place] [address] LABORATORYOrdered By: SYSTEM SYSTEM on 02-10-2024 Basophils [...] [Mass/Vol] 1.7 mg/dL Low 1.8-2.4 [facility] Comment on above: Performed By: #### B MP, MG, ANEU, ADIFF, CBC, GFR ####[place] [address] [place], [place] [address] .Auto Diffon 02-09-2024 Basophil, Absolute 0.1 10 3/mcL Normal 0.0-0.2 [facility] Comment on above: Performed By: #### B MP, MDW, GFR, ANEU, TROPHS, PBNP, CBC, ADIFF ####[place] [address] [address] Basophils/100 WBC (Bld) 1.1 % Normal 0.0-2.5 [facility] Comment on above: Performed By: #### B MP, MDW, GFR, ANEU, TROPHS, PBNP, CBC, ADIFF ####[place] [address] [place], [place] [address] Eosinophil, Absolute 0.1 10 3/mcL Normal 0.0-0.7 [facility] Comment on above: Performed By: #### B MP, MDW, GFR, ANEU, TROPHS, PBNP, CBC, ADIFF ####[place] [address] [place], [place] [address] Eosinophils/100 WBC (Bld) 1.6 % Normal 0.0-7.0 [facility] Comment on above: Performed By: #### B MP, MDW, GFR, ANEU, TROPHS, PBNP, CBC, ADIFF ####[place] [address] [place], [place] [address] Lymphocyte, Absolute 2.2 10 3/mcL Normal 0.9-4.3 [facility] Comment on above: Performed By: #### B NAFISA MCHUGH, GFR, ANEU, TROPHS, PBNP, CBC, ADIFF ####[place] [address] [place], [place] [address] Lymphocytes/100 WBC (Bld) 29.4 % Normal 20.0-40.0 [facility] Comment on above: Performed By: #### B NAFISA MCHUGH, GFR, ANEU, TROPHS, PBNP, CBC, ADIFF ####[place] [address] [place], [place] [address] Monocyte, Absolute 0.7 10 3/mcL Normal 0.1-1.4 [facility] Comment on above: Performed By: #### B NAFISA MCHUGH, GFR, ANEU, TROPHS, PBNP, CBC, ADIFF ####[place] [address] [place], [place] [address] Monocytes/100 WBC (Bld) 9.6 % Normal 2.0-13.0 [facility] Comment on above: Performed By: #### B NAFISA MCHUGH, GFR, ANEU, TROPHS, PBNP, CBC, ADIFF ####[place] [address] [place], [place] [address] Neutrophils/100 WBC (Bld) 58.3 % Normal 50.0-75.0 [facility] Comment on above: Performed By: #### B NAFISA MCHUGH, GFR, ANEU, TROPHS, PBNP, CBC, ADIFF ####[place] [address] [place], [place] [address] .GFRon 02-09-2024 GFR 67 ml/min/1.73sqm Normal [facility] Comment on above: Result Comment: [...] MDW, GFR, ANEU, TROPHS, PBNP, CBC, ADIFF ####[place] [address] [place], [place] [address] GFR Non- 55 ml/min/1.73sqm Normal [facility] Comment on above: Result Comment: [...] ANEU, TROPHS, PBNP, CBC, ADIFF ####[facility] [place], [place] [address] .MDWon 02-09-2024 Monocyte Distribution Width 17.09 Normal 0.00-20.00 [facility] Comment on above: Result Comment: For ED adult patients suspected of sepsis, MDW<=20.0 does not rule out sepsis or risk of sepsis Performed By: #### B MP, MDW, GFR, ANEU, TROPHS, PBNP, CBC, ADIFF ####[facility] [place], [place] [address] .NEUABSon 02-09-2024 Neutrophil, Absolute 4.4 10 3/mcL Normal 2.3-8.1 [facility] Comment on above: Performed By: #### B NAFISA MCHUGH, GFR, ANEU, TROPHS, PBNP, CBC, ADIFF ####[facility] [place], [place] [address] BMPon 02-09-2024 BUN/Creatinine Ratio 26 ratio Normal 7-27 [facility] Comment on above: Performed By: #### B JEISON, NAFISA, GFR, ANEU, TROPHS, PBNP, CBC, ADIFF ####[address] [address] Calcium [Mass/Vol] 10.4 mg/dL High 8.4-10.2 [facility] Comment on above: Performed By: #### B NAFISA MCHUGH, GFR, ANEU, TROPHS, PBNP, CBC, ADIFF ####[place] [address] [place], [place] [address] Chloride [Moles/Vol] 104 mmol/L Normal 98-107 [facility] Comment on above: Performed By: #### B NAFISA MCHUGH, GFR, ANEU, TROPHS, PBNP, CBC, ADIFF ####[address] [address] CO2 [Moles/Vol] 30 mmol/L Normal 23-31 [facility] Comment on above: Performed By: #### B NAFISA MCHUGH, GFR, ANEU, TROPHS, PBNP, CBC, ADIFF ####[address] [address] Creatinine [Mass/Vol] 0.96 mg/dL Normal 0.55-1.02 [facility] Comment on above: Result Comment: Test ing performed on Siemens Dimension EXL analyzer using a modified kinetic Dora technique. Performed By: #### B NAFISA MCHUGH, GFR, ANEU, TROPHS, PBNP, CBC, ADIFF ####[place] [address] [place], [place] [address] Electrolyte Balance 10.0 mEq/L Normal 4.0-15.0 [facility] Comment on above: Performed By: #### B NAFISA MCHUGH, GFR, ANEU, TROPHS, PBNP, CBC, ADIFF ####[place] [address] [place], [place] [address] Glucose [Mass/Vol] 108 mg/dL Normal 83-110 [facility] Comment on above: Performed By: #### B NAFISA MCHUGH, GFR, ANEU, TROPHS, PBNP, CBC, ADIFF ####[place] [address] [place], [place] [address] Potassium [Moles/Vol] 3.6 mmol/L Normal 3.5-5.1 [facility] Comment on above: Performed By: #### B NAFISA MCHUGH, GFR, ANEU, TROPHS, PBNP, CBC, ADIFF ####[place] [address] [place], [place] [address] Sodium [Moles/Vol] 144 mmol/L Normal 136-145 [facility] Comment on above: Performed By: #### B NAFISA MCHUGH, GFR, ANEU, TROPHS, PBNP, CBC, ADIFF ####[place] [address] [place], [place] [address] Urea nitrogen [Mass/Vol] 25 mg/dL High 7-18 [facility] Comment on above: Performed By: #### B NAFISA MCHUGH, GFR, ANEU, TROPHS, PBNP, CBC, ADIFF ####[place] [address] [place], [place] [address] CBCon 02-09-2024 Erythrocyte distribution width (RBC) [Ratio] 14.0 % Normal 11.5-15.5 [facility] Comment on above: Performed By: #### B NAFISA MCHUGH, GFR, ANEU, TROPHS, PBNP, CBC, ADIFF ####[place] [address] [place], [place] [address] Hematocrit (Bld) [Volume fraction] 34.7 % Normal 34.0-46.0 [facility] Comment on above: Performed By: #### B NAFISA MCHUGH, GFR, ANEU, TROPHS, PBNP, CBC, ADIFF ####[place] [address] [place], [place] [address] Hgb 11.7 G/dL Low 12.0-16.0 [facility] Comment on above: Performed By: #### B NAFISA MCHUGH, GFR, ANEU, TROPHS, PBNP, CBC, ADIFF ####[place] [address] [place], [place] [address] MCH (RBC) [Entitic mass] 28.7 pg Normal 27.0-33.0 [facility] Comment on above: Performed By: #### B JEISON, NAFISA, GFR, ANEU, TROPHS, PBNP, CBC, ADIFF ####[place] [address] [place], [place] [address] MCHC 33.7 G/dL Normal 32.0-36.0 [facility] Comment on above: Performed By: #### B NAFISA MCHUGH, GFR, ANEU, TROPHS, PBNP, CBC, ADIFF ####[place] [address] [place], [place] [address] MCV (RBC) [Entitic vol] 85.0 fL Normal 80.0-99.0 [facility] Comment on above: Performed By: #### B NAFISA MCHUGH, GFR, ANEU, TROPHS, PBNP, CBC, ADIFF ####[place] [place], [place] [address] Platelet 266 10 3/mcL Normal 150-450 [facility] Comment on above: Performed By: #### B NAFISA MCHUGH, GFR, ANEU, TROPHS, PBNP, CBC, ADIFF ####[place] [address] [place], [place] [address] Platelet mean volume (Bld) [Entitic vol] 7.4 fL Normal 6.6-10.5 [facility] Comment on above: Performed By: #### B NAFISA MCHUGH, GFR, ANEU, TROPHS, PBNP, CBC, ADIFF ####[place] [address] [place], [place] [address] RBC 4.08 10 6/mcL Low 4.10-5.30 [facility] Comment on above: Performed By: #### B NAFISA MCHUGH, GFR, ANEU, TROPHS, PBNP, CBC, ADIFF ####[place] [address] [place], [place] [address] WBC 7.6 10 3/mcL Normal 4.5-10.8 [facility] Comment on above: Performed By: #### B MP, ANFISA, GFR, ANEU, TROPHS, PBNP, CBC, ADIFF ####[address] [place], [place] [address] LABORATORYOrdered By: Addis Pelayo on 02-09-2024 Appearance [...] ng/L Male: 0-76 ng/L Testing performed on MYOMO using a homogeneous sandwich chemiluminescent immunoassay based on [employer] technology. Urea nitrogen [Mass/Vol] 25 mg/dL High 7 - 18 mg/dL AO ADM SS Urea nitrogen/Creatinine [Mass ratio] 26 ratio Normal 7 - 27 ratio AO ADM SS WBC (Bld) [#/Vol] 7.6 103/mcL Normal 4.5 - 10.8 10^3/mcL AO Workflow SS PBNPon 02-09-2024 Natriuretic peptide B (Bld) [Mass/Vol] 3243 pg/mL High 0-450 [facility] Comment on above: Result Comment: NT-p roBNP results of less than 300 pg/mL effectively rules out acute congestive heart failure with 99% negative predictive value. Performed By: #### B MP, NAFISA, GFR, ANEU, TROPHS, PBNP, CBC, ADIFF ####[facility] [place], [place] [address] TROPHSon 02-09-2024 High Sensitivity Troponin I 23 ng/L Normal 0-51 [facility] Comment on above: Result Comment: High Sensitive Troponin I Reference Ranges: Female: 0-51 ng/L Male: 0-76 ng/L Testing performed on MYOMO using a homogeneous sandwich chemiluminescent immunoassay based on [employer] technology. Performed By: #### B MP, MDW, GFR, ANEU, TROPHS, PBNP, CBC, ADIFF ####Jerrell [address] [place], [place] [address] UAon 02-09-2024 Color (U) Yellow Normal [facility] Comment on above: Performed By: #### U A ####Jerrell Qvdphqmy6[address] [place] [address] Glucose (U) [Mass/Vol] Negative Normal Negative [facility] Comment on above: Performed By: #### U A ####Jerrellvince LalaSjccavsu[address] [place] [address] Ketones Ql (U) Negative Normal Negative [facility] Comment on above: Performed By: #### U A ####[place] [address] [place] [address] UA Appear Clear Normal Clear [facility] Comment on above: Performed By: #### U A ####[place] Nmmkcvcy[address] [place] [address] UA Blood Negative Normal Negative [facility] Comment on above: Performed By: #### U A ####Jerrell Hciycmbm7[address] [place], [place] [address] UA Leuk Est Negative Normal Negative [facility] Comment on above: Performed By: #### U A ####Jerrell Wrtxzxwe[address] [place] [address] UA Nitrite Negative Normal Negative [facility] Comment on above: Performed By: #### U A ####Jerrell Aiohsugi736 [place] [address] UA pH 6.5 Normal 5.0 - 8.0 [facility] Comment on above: Performed By: #### U A ####Jerrell Etovqhcu[address] [place] [address] UA Protein Negative Normal Negative [facility] Comment on above: Performed By: #### U A ####[place] Ynghiuat[address] [place], [place] [address] UA Spec Grav 1.015 Normal 1.015-1.025 [facility] Comment on above: Performed By: #### U A ####[place] Hxdebpou[address] [place] [address] UA Specimen Type Void Normal [facility] Comment on above: Performed By: #### U A ####[place] Sdropjxb[address] [place] [address] UA Urobilinogen 0.2 E.U./dL Normal 0.2-1.0 [facility] Comment on above: Performed By: #### U A ####[place] Zwqsmqsa[address] [place] [address] Urobilinogen (U) [Mass/Vol] Negative Normal Negative [facility] Comment on above: Performed By: #### U A ####[facility] [place] [address] VALPRon 02-09-2024 LDose Valproic Acid: Unknown Normal [facility] Comment on above: Performed By: #### V ALPR ####[place] [address] [place] [address] Valproic Acid Lvl 30 mcg/mL Low 50-100 [facility] Comment on above: Performed By: #### V ALPR ####[facility] [place] [address] XR CHEST 1 VIEWon 02-09-2024 XR CHEST [...] 02/09/2024 9:08:10 PM Ordering Provider: TRIXIE BARONE [facility] .Urinalysis Microscopic (AO) on 01-21-2024 UA Amorphus 1+ /hpf Normal [facility] Comment on above: Performed By: #### U A, UAMICAO ####Jerrell Fobwsfmo[address] [place] [address] UA CA Ox Crystal 1+ /hpf Normal [facility] Comment on above: Performed By: #### U A, UAMICAO ####Jerrell Jvwgrxrj039 [place] [address] UA Mucous 2+ /hpf Normal [facility] Comment on above: Performed By: #### U A, UAMICAO ####Jerrell Pjzpurna[address] [place] [address] UA RBC 0-5 Abnormal None Seen [facility] Comment on above: Performed By: #### U A, UAMICAO ####Jerrell Xoenqbje[address] [place] [address] UA Squam Epithelial 0-5 Abnormal None Seen [facility] Comment on above: Performed By: #### U A, UAMICAO ####[facility] [place] [address] UA WBC 0-5 Abnormal None Seen [facility] Comment on above: Performed By: #### U A, UAMICAO ####[facility] [place] [address] LABORATORYOrdered By: Mao Nava on 01-21-2024 Appearance [...] SS UAon 01-21-2024 Color (U) Yellow Normal [facility] Comment on above: Performed By: #### U A, UAMICAO ####[facility] [place], [place] [address] Glucose (U) [Mass/Vol] Negative Normal Negative [facility] Comment on above: Performed By: #### U A, UAMICAO ####[facility] [place], [place] [address] Ketones Ql (U) Negative Normal Negative [facility] Comment on above: Performed By: #### U A, UAMICAO ####[facility] [place], [place] [address] UA Appear Clear Normal Clear [facility] Comment on above: Performed By: #### U A, UAMICAO ####[place] Cwlbzoew[address] [place], [place] [address] UA Blood Negative Normal Negative [facility] Comment on above: Performed By: #### U A, UAMICAO ####Jerrell [place] [place] [address] UA Leuk Est Negative Normal Negative [facility] Comment on above: Performed By: #### U A, UAMICAO ####Jerrell [place] [place] [address] UA Nitrite Negative Normal Negative [facility] Comment on above: Performed By: #### U A, UAMICAO ####Jerrell [place] [place] [address] UA pH 6.0 Normal 5.0 - 8.0 [facility] Comment on above: Performed By: #### U A, UAMICAO ####Jerrell [address] [address] UA Protein 30 mg/dL Normal Negative [facility] Comment on above: Performed By: #### U A, UAMICAO ####Jerrell Xkjjmcji[address] [address] UA Spec Grav 1.020 Normal 1.015-1.025 [facility] Comment on above: Performed By: #### U A, UAMICAO ####Jerrell Lqslesmq[address] [place] [address] UA Specimen Type Hua Catheter Normal [facility] Comment on above: Performed By: #### U A, UAMICAO ####Jerrell [place] [place] [address] UA Urobilinogen 0.2 E.U./dL Normal 0.2-1.0 [facility] Comment on above: Performed By: #### U A, UAMICAO ####Jerrell [address] [place] [address] Urobilinogen (U) [Mass/Vol] Negative Normal Negative [facility] Comment on above: Performed By: #### U A, KRISHNA ####Jerrell Qqvqlsaz[address] [place], [place] [address] US BLADDERon 01-07-2024 US BLADDER ORIGINAL EXAMINATION: [...] 01/07/2024 11:24:46 AM Ordering Provider: LARRY Geronimo [facility] .GFRon 12-29-2023 GFR 54 ml/min/1.73sqm [facility] Comment on above: Result Comment: GFR [...] By: #### G FR, LINDA, JANIA ####Jerrell A[address]abirdq[address] [place], [place] [address] GFR Non- 44 ml/min/1.73sqm [facility] Comment on above: Result Comment: GFR [...] By: #### LINDA SOLIS CAION ####Jerrell [address] [place], [place] [address] BMPon 12-29-2023 BUN/Creatinine Ratio 20 ratio Normal 7-27 [facility] Comment on above: Performed By: #### LINDA SOLIS CAION ####Jerrell [place] [place], [place] [address] Calcium [Mass/Vol] 10.3 mg/dL High 8.4-10.2 [facility] Comment on above: Performed By: #### LINDA SOLIS CAION ####Jerrell [address] [address] Chloride [Moles/Vol] 104 mmol/L Normal 98-107 [facility] Comment on above: Performed By: #### LINDA SOLIS CAION ####Jerrell [address] [place], [place] [address] CO2 [Moles/Vol] 31 mmol/L Normal 23-31 [facility] Comment on above: Performed By: #### LINDA SOLIS CAION ####Jerrell [address] [place], [place] [address] Creatinine [Mass/Vol] 1.16 mg/dL High 0.55-1.02 [facility] Comment on above: Result Comment: Test ing performed on Siemens Dimension EXL analyzer using a modified kinetic Dora technique. Performed By: #### LINDA SOLIS CAION ####Jerrell [address] [place], [place] [address] Electrolyte Balance 7.0 mEq/L Normal 4.0-15.0 [facility] Comment on above: Performed By: #### LINDA SOLIS, CAION ####Jerrell [address] [place], [place] [address] Glucose [Mass/Vol] 92 mg/dL Normal 83-110 [facility] Comment on above: Performed By: #### G LINDA SPAULDING, CAION ####Jerrell [address] [place], [place] [address] Potassium [Moles/Vol] 4.2 mmol/L Normal 3.5-5.1 [facility] Comment on above: Performed By: #### LINDA SOLIS, CAION ####Jerrell [place] [place], [place] [address] Sodium [Moles/Vol] 142 mmol/L Normal 136-145 [facility] Comment on above: Performed By: #### LINDA SOLIS, CAION ####Jerrell Fktbkrhi[address] [place], [place] [address] Urea nitrogen [Mass/Vol] 23 mg/dL High 7-18 [facility] Comment on above: Performed By: #### G LINDA SPAULDING, CAION ####Jerrell [address] [place], [place] [address] CAIONo 12-29-2023 Calcium Ionized 1.27 mmol/L Normal 1.12-1.32 [facility] Comment on above: Performed By: #### LINDA SOLIS, CAION ####Jerrell [address] [place], [place] [address] LABORATORYOrdered By: SYSTEM SYSTEM on 12-29-2023 Calcium [...] 12/21/2023 4:21:17 PM Ordering Provider: LARRY Geronimo [facility] XR SPINE LUMBAR W/OBLIQUES 4 [...] 12/21/2023 4:34:05 PM Ordering Provider: LARRY Geronimo [facility] B12on 12-16-2023 Cobalamin (Vitamin B12) [Mass/Vol] 509 pg/mL Normal 211-911 [facility] Comment on above: Performed By: #### F ES, FERR ####[address] [address]#### B12, FOL ####[place] [address] FOLon 12-16-2023 Folate >48.00 High 5.38-24.00 [facility] Comment on above: Performed By: #### F ES, FERR ####[address] [address]#### B12, FOL ####[place] [address] .Auto Diffon 12-15-2023 Basophil, Absolute 0.1 10 3/mcL Normal 0.0-0.2 [facility] Comment on above: Performed By: #### C MP, ADIFF, CBC, GFR, PBNP, ANEU #### [address] [address] Basophils/100 WBC (Bld) 1.1 % Normal 0.0-2.5 [facility] Comment on above: Performed By: #### C MP, ADIFF, CBC, GFR, PBNP, ANEU #### [address] [address] Eosinophil, Absolute 0.1 10 3/mcL Normal 0.0-0.7 [facility] Comment on above: Performed By: #### C MP, ADIFF, CBC, GFR, PBNP, ANEU #### [address] [address] Eosinophils/100 WBC (Bld) 1.4 % Normal 0.0-7.0 [facility] Comment on above: Performed By: #### C MP, ADIFF, CBC, GFR, PBNP, ANEU #### [address] [address] Lymphocyte, Absolute 1.7 10 3/mcL Normal 0.9-4.3 [facility] Comment on above: Performed By: #### C MP, ADIFF, CBC, GFR, PBNP, ANEU #### [address] [address] Lymphocytes/100 WBC (Bld) 20.9 % Normal 20.0-40.0 [facility] Comment on above: Performed By: #### C MP, ADIFF, CBC, GFR, PBNP, ANEU #### [address] [address] Monocyte, Absolute 0.5 10 3/mcL Normal 0.1-1.4 [facility] Comment on above: Performed By: #### C MP, ADIFF, CBC, GFR, PBNP, ANEU #### [address] [address] Monocytes/100 WBC (Bld) 6.0 % Normal 2.0-13.0 [facility] Comment on above: Performed By: #### C MP, ADIFF, CBC, GFR, PBNP, ANEU #### [address] [address] Neutrophils/100 WBC (Bld) 70.6 % Normal 50.0-75.0 [facility] Comment on above: Performed By: #### C MP, ADIFF, CBC, GFR, PBNP, ANEU #### [address] [address] .GFRon 12-15-2023 GFR 62 ml/min/1.73sqm Normal [facility] Comment on above: Result Comment: [...] ADIFF, CBC, GFR, PBNP, ANEU #### [address] [address] GFR Non- 52 ml/min/1.73sqm Normal [facility] Comment on above: Result Comment: [...] ADIFF, CBC, GFR, PBNP, ANEU #### [address] [address] .NEUABSon 12-15-2023 Neutrophil, Absolute 5.8 10 3/mcL Normal 2.3-8.1 [facility] Comment on above: Performed By: #### C MP, ADIFF, CBC, GFR, PBNP, ANEU #### [address] [address] CBCon 12-15-2023 Erythrocyte distribution width (RBC) [Ratio] 14.2 % Normal 11.5-15.5 [facility] Comment on above: Performed By: #### C MP, ADIFF, CBC, GFR, PBNP, ANEU #### [place] [address] Hematocrit (Bld) [Volume fraction] 34.6 % Normal 34.0-46.0 [facility] Comment on above: Performed By: #### C MP, ADIFF, CBC, GFR, PBNP, ANEU #### [place] [address] Hgb 11.7 G/dL Low 12.0-16.0 [facility] Comment on above: Performed By: #### C MP, ADIFF, CBC, GFR, PBNP, ANEU #### [place] [address] MCH (RBC) [Entitic mass] 28.7 pg Normal 27.0-33.0 [facility] Comment on above: Performed By: #### C MP, ADIFF, CBC, GFR, PBNP, ANEU #### [place] [address] MCHC 33.9 G/dL Normal 32.0-36.0 [facility] Comment on above: Performed By: #### C MP, ADIFF, CBC, GFR, PBNP, ANEU #### [place] [address] MCV (RBC) [Entitic vol] 84.8 fL Normal 80.0-99.0 [facility] Comment on above: Performed By: #### C MP, ADIFF, CBC, GFR, PBNP, ANEU #### [place] [id number] Platelet 363 10 3/mcL Normal 150-450 [facility] Comment on above: Performed By: #### C MP, ADIFF, CBC, GFR, PBNP, ANEU #### [place] [address] Platelet mean volume (Bld) [Entitic vol] 7.4 fL Normal 6.6-10.5 [facility] Comment on above: Performed By: #### C MP, ADIFF, CBC, GFR, PBNP, ANEU #### [place] [address] RBC 4.08 10 6/mcL Low 4.10-5.30 [facility] Comment on above: Performed By: #### C MP, ADIFF, CBC, GFR, PBNP, ANEU #### [address] [address] WBC 8.3 10 3/mcL Normal 4.5-10.8 [facility] Comment on above: Performed By: #### C MP, ADIFF, CBC, GFR, PBNP, ANEU #### [address] [address] CMPon 12-15-2023 Albumin Level 3.9 G/dL Normal 3.4-4.8 [facility] Comment on above: Performed By: #### C MP, ADIFF, CBC, GFR, PBNP, ANEU #### [address] [address] Albumin/Globulin [Mass ratio] 1.4 {ratio} Normal 1.1-2.5 [facility] Comment on above: Performed By: #### C MP, ADIFF, CBC, GFR, PBNP, ANEU #### [address] [address] ALP [Catalytic activity/Vol] 72 U/L Normal 40-135 [facility] Comment on above: Performed By: #### C MP, ADIFF, CBC, GFR, PBNP, ANEU #### [address] [address] ALT [Catalytic activity/Vol] 26 U/L Normal 14-59 [facility] Comment on above: Performed By: #### C MP, ADIFF, CBC, GFR, PBNP, ANEU #### [address] [address] AST [Catalytic activity/Vol] 18 U/L Normal 10-40 [facility] Comment on above: Performed By: #### C MP, ADIFF, CBC, GFR, PBNP, ANEU #### [address] [address] Bili Total 0.4 mg/dL Normal 0.2-1.0 [facility] Comment on above: Result Comment: Use of this assay is not recommended for patients undergoing treatment with eltrombopag due to the potential for falsely elevated results. Performed By: #### C MP, ADIFF, CBC, GFR, PBNP, ANEU #### [place] [address] BUN/Creatinine Ratio 20 ratio Normal 7-27 [facility] Comment on above: Performed By: #### C MP, ADIFF, CBC, GFR, PBNP, ANEU #### [place] [address] Calcium [Mass/Vol] 10.8 mg/dL High 8.4-10.2 [facility] Comment on above: Performed By: #### C MP, ADIFF, CBC, GFR, PBNP, ANEU #### [place] [address] Chloride [Moles/Vol] 104 mmol/L Normal 98-107 [facility] Comment on above: Performed By: #### C MP, ADIFF, CBC, GFR, PBNP, ANEU #### [place] [address] CO2 [Moles/Vol] 30 mmol/L Normal 23-31 [facility] Comment on above: Performed By: #### C MP, ADIFF, CBC, GFR, PBNP, ANEU #### [place] [address] Creatinine [Mass/Vol] 1.02 mg/dL Normal 0.55-1.02 [facility] Comment on above: Result Comment: Test ing performed on Siemens Dimension EXL analyzer using a modified kinetic Dora technique. Performed By: #### C MP, ADIFF, CBC, GFR, PBNP, ANEU #### [place] [address] Electrolyte Balance 7.0 mEq/L Normal 4.0-15.0 [facility] Comment on above: Performed By: #### C MP, ADIFF, CBC, GFR, PBNP, ANEU #### Jerrell [place] [address] [place], [place] [address] Globulin 2.8 G/dL Normal [facility] Comment on above: Performed By: #### C MP, ADIFF, CBC, GFR, PBNP, ANEU #### [address] [address] Glucose [Mass/Vol] 105 mg/dL Normal 83-110 [facility] Comment on above: Performed By: #### C MP, ADIFF, CBC, GFR, PBNP, ANEU #### [address] [address] Potassium [Moles/Vol] 4.2 mmol/L Normal 3.5-5.1 [facility] Comment on above: Performed By: #### C MP, ADIFF, CBC, GFR, PBNP, ANEU #### [address] [address] Sodium [Moles/Vol] 141 mmol/L Normal 136-145 [facility] Comment on above: Performed By: #### C MP, ADIFF, CBC, GFR, PBNP, ANEU #### [address] [address] Total Protein 6.7 G/dL Normal 6.4-8.2 [facility] Comment on above: Performed By: #### C MP, ADIFF, CBC, GFR, PBNP, ANEU #### [address] [address] Urea nitrogen [Mass/Vol] 20 mg/dL High 7-18 [facility] Comment on above: Performed By: #### C MP, ADIFF, CBC, GFR, PBNP, ANEU #### [address] [address] Lucretia 12-15-2023 Ferritin [Mass/Vol] 197.0 ng/mL Normal 8.0-252.0 [facility] Comment on above: Performed By: #### F ES, FERR ####[address] [address]#### B12, FOL ####[place] [address] FESon 12-15-2023 Iron [Mass/Vol] 44 ug/dL Low 50-170 [facility] Comment on above: Performed By: #### F ES, FERR ####[place] [address] [place], [place] [address]#### B12, FOL ####[place] [address] [place] [address] Iron Sat 15 % Normal [facility] Comment on above: Performed By: #### F ES, FERR ####[place] [address] [place], [place] [address]#### B12, FOL ####[place] [address] TIBC 300 mcg/dL Normal 250-450 [facility] Comment on above: Performed By: #### F ES, FERR ####[place] [address]#### B12, FOL ####[place] [address] LABORATORYOrdered By: SYSTEM SYSTEM on 12-15-2023 Albumin [...] Culture Urine No growth at 48 hours. [facility] PBNPon 12-15-2023 Natriuretic peptide B (Bld) [Mass/Vol] 1968 pg/mL High 0-450 [facility] Comment on above: Result Comment: NT-p roBNP results of less than 300 pg/mL effectively rules out acute congestive heart failure with 99% negative predictive value. Performed By: #### C MP, ADIFF, CBC, GFR, PBNP, ANEU ####[facility] [place] [address] LABORATORYOrdered By: Domingo Masterson on 12-09-2023 Appearance [...] SS UAon 12-09-2023 Color (U) Yellow Normal [facility] Comment on above: Performed By: #### U A ####Jerrell Q[address]ps[address] [place], [place] [address] Glucose (U) [Mass/Vol] Negative Normal Negative [facility] Comment on above: Performed By: #### U A ####Jerrell [address] [place], [place] [address] Ketones Ql (U) Negative Normal Negative [facility] Comment on above: Performed By: #### U A ####Jerrell Z[address] [place], [place] [address] UA Appear Clear Normal Clear [facility] Comment on above: Performed By: #### U A ####Jerrell [address] [place], [place] [address] UA Blood Negative Normal Negative [facility] Comment on above: Performed By: #### U A ####Jerrell [address] [place], [place] [address] UA Leuk Est Negative Normal Negative [facility] Comment on above: Performed By: #### U A ####Jerrell [address] [place] [address] UA Nitrite Negative Normal Negative [facility] Comment on above: Performed By: #### U A ####Jerrell [address] [place] [address] UA pH 7.5 Normal 5.0 - 8.0 [facility] Comment on above: Performed By: #### U A ####Jerrell [address] [place] [address] UA Protein Negative Normal Negative [facility] Comment on above: Performed By: #### U A ####[place] [address] [place] [address] UA Spec Grav 1.020 Normal 1.015-1.025 [facility] Comment on above: Performed By: #### U A ####Jerrell [address] [place] [address] UA Specimen Type Clean Catch Normal [facility] Comment on above: Performed By: #### U A ####Jerrell U[address]hmwif[address] [place] [address] UA Urobilinogen 0.2 E.U./dL Normal 0.2-1.0 [facility] Comment on above: Performed By: #### U A ####Jerrell Ph[address] [place] [address] Urobilinogen (U) [Mass/Vol] Negative Normal Negative [facility] Comment on above: Performed By: #### U A ####[facility] [place] [address] XR HIP RIGHT W/PELVIS 4 VIEW Son [...] 11/29/2023 11:51:51 AM Ordering Provider: SONNY STAHL [facility] .GFRon 07-08-2023 GFR 63 ml/min/1.73sqm Normal [facility] ([place]) Comment on above: Result Comment: GFR Population [...] A1C, ANEU, CBC, ADIFF, BMP #### [address] [address] GFR Non- 52 ml/min/1.73sqm Normal [facility] ([place]) Comment on above: Result Comment: GFR Population [...] A1C, ANEU, CBC, ADIFF, BMP #### [address] [address] BMPon 07-08-2023 BUN/Creatinine Ratio 19 ratio Normal 7-27 [facility] ([place]) Comment on above: Performed By: #### G FR, A1C, ANEU, CBC, ADIFF, BMP #### [address] [address] Calcium [Mass/Vol] 9.6 mg/dL Normal 8.4-10.2 [facility] ([place]) Comment on above: Performed By: #### G FR, A1C, ANEU, CBC, ADIFF, BMP #### [address] [address] Chloride [Moles/Vol] 106 mmol/L Normal 98-107 [facility] ([place]) Comment on above: Performed By: #### G FR, A1C, ANEU, CBC, ADIFF, BMP #### [address] [address] CO2 [Moles/Vol] 29 mmol/L Normal 23-31 [facility] ([place]) Comment on above: Performed By: #### G FR, A1C, ANEU, CBC, ADIFF, BMP #### [address] [address] Creatinine [Mass/Vol] 1.02 mg/dL Normal 0.55-1.02 [facility] ([place]) Comment on above: Performed By: #### G FR, A1C, ANEU, CBC, ADIFF, BMP #### [address] [address] Electrolyte Balance 9.0 mEq/L Normal 4.0-15.0 [facility] [place] Comment on above: Performed By: #### G FR, A1C, ANEU, CBC, ADIFF, BMP #### [address] [address] Glucose [Mass/Vol] 118 mg/dL High 83-110 [facility] ([place]) Comment on above: Performed By: #### G FR, A1C, ANEU, CBC, ADIFF, BMP #### [place] [address] [place], [place] [address] Potassium [Moles/Vol] 3.7 mmol/L Normal 3.5-5.1 [facility] ([place]) Comment on above: Performed By: #### G FR, A1C, ANEU, CBC, ADIFF, BMP #### [place] [address] [place], [place] [address] Sodium [Moles/Vol] 144 mmol/L Normal 136-145 [facility] ([place]) Comment on above: Performed By: #### G FR, A1C, ANEU, CBC, ADIFF, BMP #### [place] [address] [place], [place] [address] Urea nitrogen [Mass/Vol] 19 mg/dL High 7-18 [facility] ([place]) Comment on above: Performed By: #### G FR, A1C, ANEU, CBC, ADIFF, BMP #### [place] [address] [place], [place] [address] LABORATORYOrdered By: SYSTEM SYSTEM on 07-08-2023 Calcium [...] 04/14/2023 10:35:22 AM Ordering Provider: MAHAD Geronimo [facility]) METon 04-14-2023 Methylmalonic Acid 340 nmol/L Normal 0-378 [facility]) Comment on above: Result Comment: This test was developed and its performance characteristics determined by [facility]. It has not been cleared or approved by the Food and Drug Administration. Performed At: [address] [id number] Hima Lieberman MD Ph:[phone] Performed By: #### G FR, A1C, ANEU, CBC, ADIFF, BMP #### [address] [address] B12on 04-07-2023 Cobalamin (Vitamin B12) [Mass/Vol] 600 pg/mL Normal 211-911 [facility] ([place]) Comment on above: Performed By: #### F OL, B12 #### [facility] [address] [place] [id number] #### FT4, [id number], TSH #### [place] [address] [place], [place] [address] FOLon 04-07-2023 Folate >48.00 High 5.38-24.00 [facility] ([place]) Comment on above: Performed By: #### F OL, B12 #### [place] [address] #### FT4, [id number], TSH #### [address] [address] FT4on 04-07-2023 Free T4 [Mass/Vol] 0.99 ng/dL Normal 0.76-1.46 [facility] ([place]) Comment on above: Performed By: #### F OL, B12 #### [place] [address] #### FT4, [id number], TSH #### [address] [address] LABORATORYOrdered By: SYSTEM SYSTEM on 04-07-2023 Cobalamin [...] Qn 1.65 m[IU]/L Normal 0.36-3.74 [facility] ([place]) Comment on above: Performed By: #### F OL, B12 #### [place] [address] #### FT4, [id number], TSH #### [address] [address] .Auto Diffon 03-10-2023 Basophil, Absolute 0.1 10 3/mcL Normal 0.0-0.2 [facility] ([place]) Comment on above: Performed By: #### Francoise FR, A1C, ANEU, CBC, ADIFF, BMP #### [address] [address] Basophils/100 WBC (Bld) 1.2 % Normal 0.0-2.5 [facility] ([place]) Comment on above: Performed By: #### G FR, A1C, ANEU, CBC, ADIFF, BMP #### [address] [address] Eosinophil, Absolute 0.1 10 3/mcL Normal 0.0-0.4 [facility] ([place]) Comment on above: Performed By: #### G FR, A1C, ANEU, CBC, ADIFF, BMP #### [address] [address] Eosinophils/100 WBC (Bld) 1.6 % Normal 0.0-7.0 [facility] ([place]) Comment on above: Performed By: #### G FR, A1C, ANEU, CBC, ADIFF, BMP #### [address] [address] Lymphocyte, Absolute 1.9 10 3/mcL Normal 0.8-3.9 [facility] ([place]) Comment on above: Performed By: #### G FR, A1C, ANEU, CBC, ADIFF, BMP #### [address] [address] Lymphocytes/100 WBC (Bld) 23.7 % Normal 10.0-50.0 [facility] ([place]) Comment on above: Performed By: #### G FR, A1C, ANEU, CBC, ADIFF, BMP #### [address] [address] Monocyte, Absolute 0.6 10 3/mcL Normal 0.2-1.0 [facility] ([place]) Comment on above: Performed By: #### G FR, A1C, ANEU, CBC, ADIFF, BMP #### [address] [address] Monocytes/100 WBC (Bld) 7.8 % Normal 1.7-13.0 [facility] ([place]) Comment on above: Performed By: #### G FR, A1C, ANEU, CBC, ADIFF, BMP #### [address] [address] Neutrophils/100 WBC (Bld) 65.7 % Normal 37.0-80.0 [facility] ([place]) Comment on above: Performed By: #### G FR, A1C, ANEU, CBC, ADIFF, BMP #### [address] [address] .GFRon 03-10-2023 GFR 63 ml/min/1.73sqm Normal [facility] ([place]) Comment on above: Result Comment: GFR Population [...] A1C, ANEU, CBC, ADIFF, BMP #### [address] [address] GFR Non- 52 ml/min/1.73sqm Normal [facility] ([place]) Comment on above: Result Comment: GFR Population [...] A1C, ANEU, CBC, ADIFF, BMP #### [address] [address] .NEUABSon 01-31-2024 Neutrophil, Absolute 5.2 10 3/mcL Normal 2.9-6.2 [facility] ([place]) Comment on above: Performed By: #### G FR, A1C, ANEU, CBC, ADIFF, BMP #### [address] [address] A1Con 03-10-2023 HbA1c (Bld) [Mass fraction] 5.6 % Normal 4.3-6.4 [facility] ([place]) Comment on above: Performed By: #### G FR, A1C, ANEU, CBC, ADIFF, BMP #### [address] [address] CBCon 03-10-2023 Erythrocyte distribution width (RBC) [Ratio] 14.7 % High 11.5-14.5 [facility] ([place]) Comment on above: Performed By: #### G FR, A1C, ANEU, CBC, ADIFF, BMP #### [place] [address] Hematocrit (Bld) [Volume fraction] 35.6 % Low 37.0-47.0 [facility] ([place] Comment on above: Performed By: #### G FR, A1C, ANEU, CBC, ADIFF, BMP #### [address] [address] Hgb 12.1 G/dL Normal 12.0-16.0 [facility] ([place]) Comment on above: Performed By: #### G FR, A1C, ANEU, CBC, ADIFF, BMP #### [place] [address]377 MCH (RBC) [Entitic mass] 27.8 pg Normal 27.0-31.2 [facility] ([place] Comment on above: Performed By: #### G FR, A1C, ANEU, CBC, ADIFF, BMP #### [place] [address]377 MCHC 34.1 G/dL Normal 33.0-37.0 [facility] ([place] Comment on above: Performed By: #### G FR, A1C, ANEU, CBC, ADIFF, BMP #### [address] [address] MCV (RBC) [Entitic vol] 81.7 fL Normal 80.0-94.0 [facility] ([place]) Comment on above: Performed By: #### G FR, A1C, ANEU, CBC, ADIFF, BMP #### [address] [address] Platelet 300 10 3/mcL Normal 130-400 [facility] ([place]) Comment on above: Performed By: #### G FR, A1C, ANEU, CBC, ADIFF, BMP #### [address] [address] Platelet mean volume (Bld) [Entitic vol] 8.0 fL Normal 7.4-10.4 [facility] ([place]) Comment on above: Performed By: #### G FR, A1C, ANEU, CBC, ADIFF, BMP #### [address] [address] RBC 4.35 10 6/mcL Normal 4.20-5.40 [facility] ([place]) Comment on above: Performed By: #### G FR, A1C, ANEU, CBC, ADIFF, BMP #### [address] [address] WBC 8.0 10 3/mcL Normal 4.6-10.8 [facility] ([place] Comment on above: Performed By: #### G FR, A1C, ANEU, CBC, ADIFF, BMP #### [address] [address] CMPon 03-10-2023 Chloride [Moles/Vol] 102 mmol/L Normal 98-107 [facility] ([place]) Comment on above: Performed By: #### G FR, A1C, ANEU, CBC, ADIFF, BMP #### [address] [address] Electrolyte Balance 10.0 mEq/L Normal 4.0-15.0 [facility] [place] Comment on above: Performed By: #### G FR, A1C, ANEU, CBC, ADIFF, BMP #### [address] [address] Potassium [Moles/Vol] 4.3 mmol/L Normal 3.5-5.1 [facility] ([place]) Comment on above: Performed By: #### G FR, A1C, ANEU, CBC, ADIFF, BMP #### [address] [address] Sodium [Moles/Vol] 141 mmol/L Normal 136-145 [facility] ([place]) Comment on above: Performed By: #### G FR, A1C, ANEU, CBC, ADIFF, BMP #### [address] [address] Albumin Level 3.7 G/dL Normal 3.4-4.8 [facility] ([place]) Comment on above: Performed By: #### G FR, A1C, ANEU, CBC, ADIFF, BMP #### [address] [address] Albumin/Globulin [Mass ratio] 1.1 {ratio} Normal 1.1-2.5 [facility] ([place]) Comment on above: Performed By: #### G FR, A1C, ANEU, CBC, ADIFF, BMP #### [address] [address] ALP [Catalytic activity/Vol] 79 U/L Normal 40-135 [facility] ([place] Comment on above: Performed By: #### G FR, A1C, ANEU, CBC, ADIFF, BMP #### [address] [address] ALT [Catalytic activity/Vol] 24 U/L Normal 14-59 [facility] ([place] Comment on above: Performed By: #### G FR, A1C, ANEU, CBC, ADIFF, BMP #### [address] [address] AST [Catalytic activity/Vol] 12 U/L Normal 10-40 [facility] ([place]) Comment on above: Performed By: #### G FR, A1C, ANEU, CBC, ADIFF, BMP #### [address] [address] Bili Total 0.3 mg/dL Normal 0.2-1.0 [facility] ([place]) Comment on above: Result Comment: Use of this assay is not recommended for patients undergoing treatment with eltrombopag due to the potential for falsely elevated results. Performed By: #### G FR, A1C, ANEU, CBC, ADIFF, BMP #### [address] [address] BUN/Creatinine Ratio 25 ratio Normal 7-27 [facility] ([place]) Comment on above: Performed By: #### G FR, A1C, ANEU, CBC, ADIFF, BMP #### [address] [address] Calcium [Mass/Vol] 10.1 mg/dL Normal 8.4-10.2 [facility] ([place]) Comment on above: Performed By: #### G FR, A1C, ANEU, CBC, ADIFF, BMP #### [address] [address] CO2 [Moles/Vol] 29 mmol/L Normal 23-31 [facility] ([place]) Comment on above: Performed By: #### G FR, A1C, ANEU, CBC, ADIFF, BMP #### [address] [address] Creatinine [Mass/Vol] 1.02 mg/dL Normal 0.55-1.02 [facility] ([place] Comment on above: Performed By: #### G FR, A1C, ANEU, CBC, ADIFF, BMP #### [address] [address] Globulin 3.3 G/dL Normal [facility] ([place]) Comment on above: Performed By: #### G FR, A1C, ANEU, CBC, ADIFF, BMP #### [address] [address] Glucose [Mass/Vol] 118 mg/dL High 83-110 [facility] ([place]) Comment on above: Performed By: #### G FR, A1C, ANEU, CBC, ADIFF, BMP #### [address] [address] Total Protein 7.0 G/dL Normal 6.4-8.2 [facility] ([place]) Comment on above: Performed By: #### G FR, A1C, ANEU, CBC, ADIFF, BMP #### [address] [address] Urea nitrogen [Mass/Vol] 26 mg/dL High 7-18 [facility] ([place]) Comment on above: Performed By: #### G FR, A1C, ANEU, CBC, ADIFF, BMP #### [address] [address] LIPIDon 03-10-2023 Cholesterol [Mass/Vol] 214 mg/dL High 0-200 [facility] ([place]) Comment on above: Result Comment: Chol esterol Reference Interval: Less than 200 Desirable 200-239 Borderline high risk 240 and above High risk Performed By: #### G FR, A1C, ANEU, CBC, ADIFF, BMP #### [address] [address] Cholesterol in HDL [Mass/Vol] 62 mg/dL High 40-60 [facility] ([place]) Comment on above: Performed By: #### G FR, A1C, ANEU, CBC, ADIFF, BMP #### [address] [address] Cholesterol in LDL [Mass/Vol] 111 mg/dL Normal 0-130 [facility] ([place]) Comment on above: Performed By: #### G FR, A1C, ANEU, CBC, ADIFF, BMP #### [address] [address] Triglyceride [Mass/Vol] 205 mg/dL High 0-150 [facility] ([place]) Comment on above: Result Comment: Trig lyceride Reference Interval: Less than 150 Normal 150-199 Borderline high risk 200-499 High risk 500 or higher Very high risk Performed By: #### G FR, A1C, ANEU, CBC, ADIFF, BMP #### [address] [address] PHOSon 01-31-2024 Phosphate [Mass/Vol] 3.2 mg/dL Normal 2.3-4.1 [facility] ([place] Comment on above: Performed By: #### G FR, A1C, ANEU, CBC, ADIFF, BMP #### [address] [address] PTHon 03-10-2023 PTH, Intact 78.2 pg/mL Normal 18.5-88.0 [facility] ([place]) Comment on above: Performed By: #### G FR, A1C, ANEU, CBC, ADIFF, BMP #### [address] [address] VIDHon 03-10-2023 Vit. D 25-Hydroxy 32.1 ng/mL Normal [facility] ([place]) Comment on above: Result Comment: Inte rpretive Values Based on Total 25(OH) Vitamin D: Deficient <20 ng/mL Insufficient 20 - <30 ng/mL Sufficient 30-100 ng/mL Performed By: #### G FR, A1C, ANEU, CBC, ADIFF, BMP #### [address] [address] BD BONE DENSITY DEXA AXIAL S KELETONon [...] AM Ordering Provider: LARRY Geronimo [facility] ([place]) .Auto Diffon 09-16-2022 Basophil, Absolute 0.1 10 3/mcL Normal 0.0-0.2 [facility] ([place]) Comment on above: Performed By: #### G FR, A1C, ANEU, CBC, ADIFF, BMP #### [address] [address] Basophils/100 WBC (Bld) 0.8 % Normal 0.0-2.5 [facility] ([place]) Comment on above: Performed By: #### G FR, A1C, ANEU, CBC, ADIFF, BMP #### [address] [address] Eosinophil, Absolute 0.2 10 3/mcL Normal 0.0-0.4 [facility] ([place]) Comment on above: Performed By: #### G FR, A1C, ANEU, CBC, ADIFF, BMP #### [address] [address] Eosinophils/100 WBC (Bld) 2.1 % Normal 0.0-7.0 [facility] ([place]) Comment on above: Performed By: #### G FR, A1C, ANEU, CBC, ADIFF, BMP #### [address] [address] Lymphocyte, Absolute 2.0 10 3/mcL Normal 0.8-3.9 [facility] ([place]) Comment on above: Performed By: #### G FR, A1C, ANEU, CBC, ADIFF, BMP #### [address] [address] Lymphocytes/100 WBC (Bld) 22.9 % Normal 10.0-50.0 [facility] ([place]) Comment on above: Performed By: #### G FR, A1C, ANEU, CBC, ADIFF, BMP #### [address] [address] Monocyte, Absolute 0.5 10 3/mcL Normal 0.2-1.0 [facility] ([place]) Comment on above: Performed By: #### G FR, A1C, ANEU, CBC, ADIFF, BMP #### [address] [address] Monocytes/100 WBC (Bld) 6.4 % Normal 1.7-13.0 [facility] ([place]) Comment on above: Performed By: #### G FR, A1C, ANEU, CBC, ADIFF, BMP #### [address] [address] Neutrophils/100 WBC (Bld) 67.8 % Normal 37.0-80.0 [facility] ([place]) Comment on above: Performed By: #### G FR, A1C, ANEU, CBC, ADIFF, BMP #### [address] [address] .GFRon 09-16-2022 GFR Non- 48 ml/min/1.73sqm Normal [facility] ([place]) Comment on above: Result Comment: GFR Population [...] A1C, ANEU, CBC, ADIFF, BMP #### [address] [address] GFR 59 ml/min/1.73sqm Normal [facility] ([place]) Comment on above: Result Comment: GFR Population [...] A1C, ANEU, CBC, ADIFF, BMP #### [address] [address] .NEUABSon 09-16-2022 Neutrophil, Absolute 5.8 10 3/mcL Normal 2.9-6.2 [facility] ([place]) Comment on above: Performed By: #### G FR, A1C, ANEU, CBC, ADIFF, BMP #### [address] [address] A1Con 09-16-2022 HbA1c (Bld) [Mass fraction] 5.7 % Normal 4.3-6.4 [facility] ([place]) Comment on above: Performed By: #### G FR, A1C, ANEU, CBC, ADIFF, BMP #### [address] [address] BMPon 09-16-2022 BUN/Creatinine Ratio 27 ratio Normal 7-27 [facility] ([place]) Comment on above: Performed By: #### G FR, A1C, ANEU, CBC, ADIFF, BMP #### [address] [address] Calcium [Mass/Vol] 9.8 mg/dL Normal 8.4-10.2 [facility] ([place]) Comment on above: Performed By: #### G FR, A1C, ANEU, CBC, ADIFF, BMP #### [address] [address] Chloride [Moles/Vol] 106 mmol/L Normal 98-107 [facility] ([place]) Comment on above: Performed By: #### G FR, A1C, ANEU, CBC, ADIFF, BMP #### [address] [address] CO2 [Moles/Vol] 29 mmol/L Normal 23-31 [facility] ([place]) Comment on above: Performed By: #### G FR, A1C, ANEU, CBC, ADIFF, BMP #### [address] [address] Creatinine [Mass/Vol] 1.08 mg/dL High 0.55-1.02 [facility] ([place] Comment on above: Performed By: #### G FR, A1C, ANEU, CBC, ADIFF, BMP #### [address] [address] Electrolyte Balance 8.0 mEq/L Normal 4.0-15.0 [facility] [place] Comment on above: Performed By: #### G FR, A1C, ANEU, CBC, ADIFF, BMP #### [address] [address] Glucose [Mass/Vol] 125 mg/dL High 83-110 [facility] ([place]) Comment on above: Performed By: #### G FR, A1C, ANEU, CBC, ADIFF, BMP #### [address] [address] Potassium [Moles/Vol] 4.5 mmol/L Normal 3.5-5.1 [facility] ([place] Comment on above: Performed By: #### G FR, A1C, ANEU, CBC, ADIFF, BMP #### [address] [address] Sodium [Moles/Vol] 143 mmol/L Normal 136-145 [facility] ([place]) Comment on above: Performed By: #### G FR, A1C, ANEU, CBC, ADIFF, BMP #### [address] [address] Urea nitrogen [Mass/Vol] 29 mg/dL High 7-18 [facility] ([place]) Comment on above: Performed By: #### G FR, A1C, ANEU, CBC, ADIFF, BMP #### [address] [address] CBCon 09-16-2022 Erythrocyte distribution width (RBC) [Ratio] 14.6 % High 11.5-14.5 [facility] ([place]) Comment on above: Performed By: #### G FR, A1C, ANEU, CBC, ADIFF, BMP #### [place] [address] Hematocrit (Bld) [Volume fraction] 33.9 % Low 37.0-47.0 [facility] ([place] Comment on above: Performed By: #### G FR, A1C, ANEU, CBC, ADIFF, BMP #### [place] [id number] Hgb 11.2 G/dL Low 12.0-16.0 [facility] ([place]) Comment on above: Performed By: #### G FR, A1C, ANEU, CBC, ADIFF, BMP #### [place] [address] MCH (RBC) [Entitic mass] 27.0 pg Normal 27.0-31.2 [facility] ([place] Comment on above: Performed By: #### G FR, A1C, ANEU, CBC, ADIFF, BMP #### [place] [address] MCHC 33.1 G/dL Normal 33.0-37.0 [facility] ([place]) Comment on above: Performed By: #### G FR, A1C, ANEU, CBC, ADIFF, BMP #### [place] [address] MCV (RBC) [Entitic vol] 81.6 fL Normal 80.0-94.0 [facility] ([place]) Comment on above: Performed By: #### G FR, A1C, ANEU, CBC, ADIFF, BMP #### [place] [id number] Platelet 275 10 3/mcL Normal 130-400 [facility] ([place]) Comment on above: Performed By: #### G FR, A1C, ANEU, CBC, ADIFF, BMP #### [place] [address] [place], [place] [address] Platelet mean volume (Bld) [Entitic vol] 8.2 fL Normal 7.4-10.4 [facility] ([place]) Comment on above: Performed By: #### G FR, A1C, ANEU, CBC, ADIFF, BMP #### [place] [address] [address] RBC 4.15 10 6/mcL Low 4.20-5.40 [facility] ([place]) Comment on above: Performed By: #### G FR, A1C, ANEU, CBC, ADIFF, BMP #### [place] [address] [place], [place] [address] WBC 8.5 10 3/mcL Normal 4.6-10.8 [facility] ([place] Comment on above: Performed By: #### G FR, A1C, ANEU, CBC, ADIFF, BMP #### [address] [address] LABORATORYOrdered By: SYSTEM SYSTEM on 06-19-2022 Basophils [...] SS CNPNon 06-03-2022 CNPN Telephone (GENSWS) SHACT ([id number]) 1940 F Date Time Provider Department 06/03/22 PAULA ALANIZ During your visit today, we recorded the following information about you: Brenton Jennings RN 06/03/2022 11:29 AM Signed Received a request from [facility] for all of Ct's left breast cancer treatment medical records. Faxed the request to medical records on [facility], fax confirmation sheet received. Brenton Jennings RN Allergies As of Date: 06/03/2022 Noted Allergy Reaction SULFA (SULFONAMIDE ANTIBIOTICS) 04/05/2017 5 - Intolerance Date Reviewed: 04/06/2022 Reviewed by: Mini Brokoe LPN - Fully Assessed Reason for Visit: [...] Encounter Status:Closed by BRENTON JENNINGS on 06/03/22 [facility] LABORATORYOrdered By: SYSTEM SYSTEM on 04-14-2022 [...] CNOV Office Visit (DEANNS ) CT DALTON ([id number]) 1940 F Date Time Provider Department 04/06/22 [...] needle core breast biopsies on 03/23/2022 at [facility]. Findings of fat necrosis, inflammation and [...] once daily. (more content not included)... Normal [facility] LABORATORYOrdered By: SYSTEM SYSTEM on 03-09-2022 Albumin [...] 12-04 Culture Urine No growth to date [facility] Microscopic examination of blood, culture Culture has been received in lab and is no growth to date. Routine cultures are held for 5 days. [facility] LABORATORYOrdered By: Rick Webber on 12-03-2021 [...] 1.006-1.029 AM [facility] Subsection Urobilinogen Qn (U) [id number] {Sara'U}/dL Invalid Interpretation Code 0.2-1.0E.U. /dL AM [...] on above: Result Comment: Alesia [address] [place], [place] [address] Perf Loc - POCT Tested at AM Invalid Interpretation Code AM [employer] Subsection Comment on above: Result Comment: [address] [place], [place] [address] Perf Loc - POCT Tested at AM Invalid Interpretation Code AM [employer] Subsection Comment on above: Result Comment: Ales[address] [place], [place] [address] MRI BREAST WO/W IVCON BILon 03-01-2018 MRI BREAST WO/W IVCON DUNCAN * * *Final Report* * * DATE OF EXAM: Mar 01 2018 11:54AM 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 Short interval follow up of the lumpectomy site recommended per the prior MRI dated 05/18/2017. RESULT: Comparison is made to exam dated: 05/18/2017 breast MRI - [facility]. Interpretation of this MRI was correlated with available mammograms. Informed consent was obtained from the patient. MRI images were obtained at 1 mm intervals with a dedicated breast MRI. Pre and post contrast images were obtained at 1 minute intervals for 6 minutes. The patient was studied using the [employer] dedicated breast coil in the Siemens 1.5 Juila scanner. Initial axial STIR imaging was carried [...] Follow-up with ACR/NCCN guidelines. Td carlson/rafael:03/01/2018 14:15:08 Human Resources Designate(s): RT Amanda(N)(MR), [facility] MRI BI-RADS: 2 Benign finding Multiple [...] Health, Family Medicine, and Medical/Surgical Oncology, the [facility] has carefully reviewed the data [...] their providers when to stop screening mammograms. Compactor Driver: Rafael Transcribe Date/Time: Mar 01 2018 11:37A Dictated by : TD SANDERS MD This examination was interpreted and the report reviewed and electronically signed by: TD SANDERS MD on Mar 01 2018 2:15PM EST [id number] Normal [facility] NURSING PROGon 03-01-2018 Protein mass conc HNO ID: [id number] Author: Carla Love (Rn) Kristopher Service: Radiology [...] HMSPatient IDon 01-17-2018 OOP Invalid Interpretation Code [facility] Work Phone: Office Visit: Follow-up by donnie servin Rm: [email or web address] 01-17-2018 NEGATED: Highlighted rowMRI (magnetic resonance imaging) history of the lumbar spine on 10/20/2013 at [facility] Invalid Interpretation Code [facility] Work Phone: NEGATED: Highlighted rowProtein mass conc Done Invalid Interpretation Code [facility] Work Phone: MRI BREAST WO/W IVCON BILon 05-18-2017 MRI BREAST WO/W IVCON DUNCAN * * *Final Report* * * DATE OF EXAM: May 18 2017 2:32PM [facility] 0773 - MRI BREAST WO/W IVCON DUNCAN / PROCEDURE REASON: Z13.89-Encounter for screening for other disorder * * * * Physician Interpretation * * * * #[id number] - MRI BREAST WO/W IVCON DUNCAN BREAST [...] staff physician. Cricket Pineda M.D. ns,bb/rafael:05/18/2017 15:28:32 Human Resources Designate: Cally SPEARS (R)(Jeanine), [facility] MRI BI-RADS: 3 Probably benign finding - short term interval follow-up recommended Compactor Driver: Rafael Transcribe Date/Time: May 18 2017 2:15P Dictated by : MALLIKA PINEDA MD This examination was interpreted and the report reviewed and electronically signed by: CRICKET AMBRIZ MD on May 18 2017 3:28PM EST [id number] [facility] NURSING PROGon 05-18-2017 Protein mass conc HNO ID: [id number] Author: Ema (Rn) DONA Bai Service: PICC [...] cm Dr. Warner Leos MD Work Phone: [facility] 07-24-2024 03:24-0400 Diastolic blood pressure 69 mm[Hg] Dr. Warner Leos MD Work Phone: [facility] 07-24-2024 03:24-0400 Heart rate 52 /min Dr. Warner Leos MD Work Phone: [facility] 07-24-2024 03:24-0400 SaO2% (BldA) [Mass fraction] 100 % Dr. Warner Leos MD Work Phone: [facility] 07-24-2024 03:24-0400 Systolic blood pressure 164 mm[Hg] Dr. Warner Leos MD Work Phone: [facility] 07-24-2024 01:24-0400 Body height 167.[address] Warner Leos MD Work Phone: [facility] 07-24-2024 01:24-0400 Body mass index (BMI) [Ratio] 28 kg/m2 Dr. Warner Leos MD Work Phone: [facility] 07-24-2024 01:24-0400 Body temperature 98 [degF] Dr. Warner Leos MD Work Phone: [facility] 07-24-2024 01:24-0400 Body weight 78.[address] Warner Leos MD Work Phone: [facility] 07-24-2024 01:24-0400 Respiratory rate 16 /min Dr. Warner Leos MD Work Phone: [facility] 02-10-2024 15:30-0500 Body temperature 97.52 [degF] ELDA [employer] EM[employer]EE[employer] RO[employer] OPERATOR [facility] 02-10-2024 15:30-0500 Diastolic Blood Pressure Non-Invasive 72 mm[Hg] ELDA [employer] SERV[employer] EMPL[employer]EE[employer] ROOM OPERATOR [facility] 02-10-2024 15:30-0500 Heart rate 84 /min ELDA [employer] EMPLOYEE[employer] ROOM OPERATOR [facility] 02-10-2024 15:30-0500 Reason For Taking VItal Signs ELDA [employer] SERVICE EMPLOYEE[employer] ROOM OPERATOR [facility] 02-10-2024 15:30-0500 Respiratory rate 16 /min ELDA [employer] EMPL[employer]EE[employer] ROOM OPERATOR [facility] 02-10-2024 15:30-0500 Systolic Blood Pressure Non-Invasive 146 mm[Hg] ELDA [employer] SERVICE EMPLOYEE[employer] ROOM OPERATOR [facility] 02-10-2024 06:37-0500 Body temperature 97.34 [degF] ELDA [employer] SERVICE EMPLOYEE[employer] ROOM OPERATOR [facility] 02-10-2024 06:37-0500 Diastolic Blood Pressure Non-Invasive 82 mm[Hg] ELDA [employer] SERVICE EMPL[employer]EE[employer] ROOM OPERATOR [facility] 02-10-2024 06:37-0500 Heart rate 80 /min ELDA [employer] SERV[employer] EMPLOYEE[employer] ROOM OPERATOR [facility] 02-10-2024 06:37-0500 Reason For Taking VItal Signs ELDA [employer] SERVICE EMPL[employer]EE[employer] ROOM OPERATOR [facility] 02-10-2024 06:37-0500 Respiratory rate 14 /min ELDA [employer] SERV[employer] EMPL[employer]EE[employer] ROOM OPERATOR [facility] 02-10-2024 06:37-0500 Systolic Blood Pressure Non-Invasive 148 mm[Hg] ELDA [employer] SERVICE EMPL[employer]EE[employer] ROOM OPERATOR [facility] 02-10-2024 03:22-0500 Body temperature 97.52 [degF] ELDA [employer] SERV[employer] EMPL[employer]EE[employer] ROOM OPERATOR [facility] 02-10-2024 03:22-0500 Diastolic Blood Pressure Non-Invasive 81 mm[Hg] ELDA [employer] SERVICE EMPL[employer]EE[employer] ROOM OPERATOR [facility] 02-10-2024 03:22-0500 Heart rate 81 /min ELDA [employer] EMPL[employer]EE[employer] ROOM OPERATOR [facility] 02-10-2024 03:22-0500 Reason For Taking VItal Signs ELDA [employer] EMPL[employer]EE[employer] ROOM OPERATOR [facility] 02-10-2024 03:22-0500 Respiratory rate 14 /min ELDA [employer] EMPL[employer]EE[employer] ROOM OPERATOR [facility] 02-10-2024 03:22-0500 Systolic Blood Pressure Non-Invasive 156 mm[Hg] ELDA [employer] SERVICE EMPL[employer]EE[employer] ROOM OPERATOR [facility] 02-09-2024 22:01-0500 Heart rate 74 /min ELDA [employer] EMPL[employer]EE[employer] ROOM OPERATOR [facility] 02-09-2024 21:59-0500 Body height 152 cm ELDA DEL [employer] EMPLOYEE-SODA ROOM OPERATOR [facility] 02-09-2024 21:59-0500 Body weight 67 kg ELDA DEL ROSARIO SERVICE EMPLOYEE-SODA ROOM OPERATOR [facility] 02-09-2024 21:59-0500 Body weight 29 kg/m2 ELDA DEL ROSARIO SERVICE EMPLOYEE-SODA ROOM OPERATOR [facility] 02-09-2024 21:07-0500 Heart rate 78 /min ELDA DEL ROSARIO SERVICE EMPLOYEE-SODA ROOM OPERATOR [facility] 02-09-2024 21:07-0500 Mean blood pressure 90 mm[Hg] ELDA BUCKNERFF SERVICE EMPLOYEE-SODA ROOM OPERATOR [facility] 02-09-2024 20:38-0500 Mean blood pressure 85 mm[Hg] ELDA BUCKNERFF SERVICE EMPLOYEE-SODA ROOM OPERATOR [facility] 02-09-2024 19:39-0500 Heart rate 83 /min ELDA BUCKNERFF SERVICE EMPLOYEE-SODA ROOM OPERATOR [facility] 01-21-2024 10:04-0500 Body height 160 cm INES DENNIS MD [facility] 01-21-2024 10:04-0500 Body temperature 97.52 [degF] INES DENNIS MD [facility] 01-21-2024 10:04-0500 Body weight 68.2 kg INES DENNIS MD [facility] 01-21-2024 10:04-0500 Diastolic Blood Pressure Non-Invasive 81 mm[Hg] INES DENNIS MD [facility] 01-21-2024 10:04-0500 Heart rate 85 /min INES DENNIS MD [facility] 01-21-2024 10:04-0500 Respiratory rate 18 /min INES DENNIS MD [facility] 01-21-2024 10:04-0500 Systolic Blood Pressure Non-Invasive 164 mm[Hg] INES DENNIS MD [facility] 12-09-2023 08:47-0400 Blood Pressure Location INES DENNIS MD [facility] 12-09-2023 08:47-0400 Blood Pressure Method INES DENNIS MD [facility] 12-09-2023 08:47-0400 Body temperature 98.24 [degF] INES DENNIS MD [facility] 12-09-2023 08:47-0400 Diastolic Blood Pressure Non-Invasive 91 mm[Hg] INES DENNIS MD [facility] 12-09-2023 08:47-0400 Heart rate 90 /min INES DENNIS MD [facility] 12-09-2023 08:47-0400 Respiratory rate 18 /min INES DENNIS MD [facility] 12-09-2023 08:47-0400 Systolic Blood Pressure Non-Invasive 161 mm[Hg] INES DENNIS MD [facility] 11-29-2023 12:26-0400 Diastolic Blood Pressure Non-Invasive 76 mm[Hg] SONNY STAHL DO [facility] 11-29-2023 12:26-0400 Heart rate 76 /min SONNY STAHL DO [facility] 11-29-2023 12:26-0400 Respiratory rate 18 /min SONNY STAHL DO [facility] 11-29-2023 12:26-0400 Systolic Blood Pressure Non-Invasive 164 mm[Hg] SONNY STAHL DO [facility] 11-29-2023 08:58-0400 Blood Pressure Cuff Size SONNY STAHL DO [facility] 11-29-2023 08:58-0400 Blood Pressure Location SONNY STAHL DO [facility] 11-29-2023 08:58-0400 Blood Pressure Method SONNY STAHL DO [facility] 11-29-2023 08:58-0400 Body height 155 cm SONNY STAHL DO [facility] 11-29-2023 08:58-0400 Body temperature 97.34 [degF] SONNY STAHL DO [facility] 11-29-2023 08:58-0400 Diastolic Blood Pressure Non-Invasive 83 mm[Hg] SONNY STAHL DO [facility] 11-29-2023 08:58-0400 Heart rate 84 /min SONNY STAHL DO [facility] 11-29-2023 08:58-0400 Respiratory rate 18 /min SONNY STAHL DO [facility] 11-29-2023 08:58-0400 Systolic Blood Pressure Non-Invasive 172 mm[Hg] SONNY STAHL DO [facility] 06-19-2022 12:01-0400 Blood Pressure Cuff Size DR ANISA GOMEZ MD [facility] 06-19-2022 12:01-[address] ANISA GOMEZ MD [facility] 06-19-2022 12:01-[address] ANISA GOMEZ MD [facility] 06-19-2022 12:01-0400 Body height [address] ANISA GOMEZ MD [facility] 06-19-2022 12:01-0400 Body temperature 97.7 [degF] DR ANISA GOMEZ MD [facility] 06-19-2022 12:01-0400 Body weight 76.[address] ANISA GOMEZ MD [facility] 06-19-2022 12:01-0400 Body weight 31.88 kg/m2 DR ANISA GOMEZ MD [facility] 06-19-2022 12:01-0400 Diastolic Blood Pressure Non-Invasive [address] ANISA GOMEZ MD [facility] 06-19-2022 12:01-0400 Heart rate 86 /min DR ANISA GOMEZ MD [facility] 06-19-2022 12:01-0400 Systolic Blood Pressure Non-Invasive [address] ANISA GOMEZ MD [facility] 04-06-2022 09:47-0500 Body height 157.5 cm Paula Alaniz MD Work Phone: [facility] 04-06-2022 09:47-0500 Body temperature 97.81 [degF] Paula Alaniz MD Work Phone: [facility] 04-06-2022 09:47-0500 Body weight 73.94 kg Paula Alaniz MD Work Phone: [facility] 04-06-2022 09:47-0500 Diastolic blood pressure 70 mm[Hg] Paula Alaniz MD Work Phone: [facility] 04-06-2022 09:47-0500 Heart rate 109 /min Paula Alaniz MD Work Phone: [facility] 04-06-2022 09:47-0500 SaO2% (BldA) [Mass fraction] 99 % Paula Alaniz MD Work Phone: [facility] 04-06-2022 09:47-0500 Systolic blood pressure 148 mm[Hg] Paula Alaniz MD Work Phone: [facility] 12-25-2021 16:18-0500 Diastolic Blood Pressure Non-Invasive 69 1 INES DENNIS MD [facility] 12-25-2021 16:18-0500 Systolic Blood Pressure Non-Invasive 189 1 INES DENNIS MD [facility] 12-25-2021 15:56-0500 Body height 157.5 cm INES DENNIS MD [facility] 12-25-2021 15:56-0500 Body temperature 96.44 [degF] INES DENNIS MD [facility] 12-25-2021 15:56-0500 Body weight 65.9 kg INES DENNIS MD [facility] 12-25-2021 15:56-0500 Diastolic Blood Pressure Non-Invasive 109 1 INES DENNIS MD [facility] 12-25-2021 15:56-0500 Heart rate 90 /min INES DENNIS MD [facility] 12-25-2021 15:56-0500 Respiratory rate 20 /min INES DENNIS MD [facility] 12-25-2021 15:56-0500 Systolic Blood Pressure Non-Invasive 202 1 INES DENNIS MD [facility] 12-06-2021 12:58-0400 Diastolic blood pressure 77 mm[Hg] DR KEVIN VIRGEN MD [facility] 12-06-2021 12:58-0400 Mean blood pressure 111 mm[Hg] DR KEVIN VIRGEN MD [facility] 12-06-2021 12:58-0400 Systolic blood pressure 180 mm[Hg] DR KEVIN VIRGEN MD [facility] 12-06-2021 12:55-0400 Diastolic blood pressure 77 mm[Hg] DR KEVIN VIRGEN MD [facility] 12-06-2021 12:55-0400 Heart rate 60 /min DR KEVIN VIRGEN MD [facility] 12-06-2021 12:55-0400 Mean blood pressure 111 mm[Hg] DR KEVIN VIRGEN MD [facility] 12-06-2021 12:55-0400 Reason For Taking VItal Signs DR KEVIN VIRGEN MD [address] [place] [address] 12-06-2021 12:55-0400 Respiratory rate 18 /min DR KEVIN VIRGEN MD [address] [place] [address] 12-06-2021 12:55-0400 Systolic blood pressure 180 mm[Hg] DR KEVIN VIRGEN MD [address] 12-06-2021 08:46-0400 Heart rate 78 /min DR KEVIN VIRGEN MD [address] [place] [address] 12-06-2021 08:30-0400 Body temperature 98.06 [degF] DR KEVIN VIRGEN MD [address] [place] [address] 12-06-2021 08:30-0400 Diastolic blood pressure 82 mm[Hg] DR KEVIN VIRGEN MD [address] [place] [address] 12-06-2021 08:30-0400 Heart rate 77 /min DR KEVIN VIRGEN MD [address] 12-06-2021 08:30-0400 Mean blood pressure 106 mm[Hg] DR KEVIN VIRGEN MD [address] 12-06-2021 08:30-0400 Reason For Taking VItal Signs DR KEVIN VIRGEN MD [address] 12-06-2021 08:30-0400 Respiratory rate 17 /min DR KEVIN VIRGEN MD [address] [place] [address] 12-06-2021 08:30-0400 Systolic blood pressure 155 mm[Hg] DR KEVIN VIRGEN MD [address] [place] [address] 12-06-2021 03:45-0400 Body temperature 97.88 [degF] DR KEVIN VIRGEN MD [address] 12-06-2021 03:45-0400 Reason For Taking VItal Signs DR KEVIN VIRGEN MD [address] [place] [address] 12-06-2021 03:45-0400 Respiratory rate 18 /min DR KEVIN VIRGEN MD [address] [place] [address] 12-05-2021 23:53-0400 Body temperature 98.06 [degF] DR KEVIN VIRGEN MD [address] [place] [address] 12-04-2021 15:33-0400 Heart rate 56 /min DR KEVIN VIRGEN MD [address] [place] [address] 12-04-2021 02:47-0400 Heart rate 55 /min DR KEVIN VIRGEN MD [address] [place] [address] 12-03-2021 23:44-0400 Heart rate 60 /min DR KEVIN VIRGEN MD [address] [place] [address] 12-03-2021 21:46-0400 Body height [address] KEVIN VIRGEN MD [address] [place] [address] 12-03-2021 21:46-0400 Body weight 83.[address] KEVIN VIRGEN MD [address] [place] [address] 12-03-2021 21:46-0400 Body weight 32.73 kg/m2 DR KEVIN VIRGEN MD [address] [place] [address] 12-03-2021 21:30-0400 Heart rate 86 /min DR KEVIN VIRGEN MD [address] [place] [address] 12-03-2021 14:26-0400 Body temperature 98.06 [degF] DR KEVNI VIRGEN MD [address] [place] [address] 12-03-2021 14:26-0400 Body weight 83.[address] KEVIN VIRGEN MD [address] [place] [address] NEGATED: Highlighted [id number] 10:24-0500 BMI (Body Mass Index) 37.26 kg/m2 Rigo Best AT [facility] Work Phone: NEGATED: Highlighted [id number] 10:24-0500 BP Diastolic 72 mm[Hg] Rigo Sitko AT [facility] Work Phone: NEGATED: Highlighted [id number] 10:24-0500 BP Diastolic 82 mm[Hg] Rigo Sitko AT [facility] Work Phone: NEGATED: Highlighted [id number] 10:24-0500 BP Systolic 154 mm[Hg] Rigo Sitko AT [facility] Work Phone: NEGATED: Highlighted [id number] 10:24-0500 BP Systolic 149 mm[Hg] Rigo Sitko AT [facility] Work Phone: NEGATED: Highlighted [id number] 10:24-0500 Height 157.48 cm Rigo Sitko AT [facility] Work Phone: NEGATED: Highlighted [id number] 10:24-0500 Height 157 cm Rigo Sitko AT [facility] Work Phone: NEGATED: Highlighted [id number] 10:24-0500 Pulse (Heart Rate) 60 /min Rigo Best AT [facility] Work Phone: NEGATED: Highlighted [id number] 10:24-0500 Weight 92.08 kg Rigo Best AT [facility] Work Phone: NEGATED: Highlighted [id number] 10:24-0500 Weight 92 kg Rigo Sitko AT [facility] Work Phone: Encounters Encounter Date Encounter Type Care Provider Facility Start: 11-13-2024 ambulatory Jairon Medel Facili ty:[facility] Start: 10-16-2024 ambulatory Jairon Medel OLS Fa cility:[facility] Start: 10-16-2024 Registered Referred Jaiorn Medel MD -[facility] Start: 09-18-2024 ambulatory Efmargarette Medel Facili ty:[facility] Start: 09-18-2024 [facility] Start: 08-28-2024 End: 08-28-[address] Jairon Medel MD Work Phone: [facility] Start: 08-28-2024 End: 08-28-2024 [facility]: 08-28-2024 [facility] Start: 08-28-2024 End: 08-28-2024 ambulatory Efmargarette Medel Facility:[facility] Start: 08-21-2024 ambulatory Efmargarette Medel Facili ty:[facility] Start: 08-21-2024 [facility] Start: 08-08-2024 End: 08-08-[address] Warner Leos MD Work Phone: [facility] Start: 08-08-2024 End: 08-08-[address] Jairon Medel MD -[facility] Work Phone: Start: 08-08-2024 Non-patient / Non-visit Dr. Julia young MD -[facility] Work Phone: Start: 07-24-2024 End: 07-24-[address] Warner Leos MD Work Phone: -[facility] Start: 07-24-2024 End: 07-24-2024 Patient encounter procedure Jane CASTRO -[facility] Work Phone: Start: 07-24-2024 End: 07-24-2024 Emergency department patient visit Dr. Warner Leos MD Work Phone: -Emergency Department Work Phone: Start: 06-27-2024 End: 06-27-[address] Warner Leos MD Work Phone: [facility] Start: 06-27-2024 End: 06-27-[address] Jairon Medel MD -[facility] Work Phone: Start: 06-26-2024 End: 06-26-[address] Warner Leos MD Work Phone: [facility] Work Phone: Start: 06-26-2024 End: 06-26-2024 Departed Referred Jairon Medel MD -[facility] Start: 06-26-2024 End: 06-26-2024 ambulatory Jairon TREVIÑO Facility:[facility] Start: 05-29-2024 End: 05-29-[address] Warner Leos MD Work Phone: [facility] Work Phone: Start: 05-29-2024 End: 05-29-2024 Departed Referred Jairon LockhartKate Ruvalcaba Start: 05-29-2024 Registered Referred Jairon LockhartKate Ruvalcaba Start: 05-29-2024 End: 05-29-2024 ambulatory Jairon De Leonsophia TREVIÑO Facility:[facility] Start: 05-24-2024 End: 05-24-[address] Warner Leos MD Work Phone: [facility] Work Phone: Start: 05-24-2024 End: 05-24-2024 Departed Referred Jairon Ruvalcaba Start: 05-24-2024 Registered Referred Jairon LockhartKate Ruvalcaba Start: 05-23-2024 End: 05-24-[address] Warner Leos MD Work Phone: [facility] Work Phone: Start: 05-23-2024 End: 05-23-2024 Patient encounter procedure Jane Barth NP- -[facility] Work Phone: Start: 05-15-2024 End: 05-15-[address] Warner Leos MD Work Phone: [facility] Work Phone: Start: 05-15-2024 End: 05-15-2024 Departed Referred Jairon LockhartKate Ruvalcaba Start: 05-15-2024 Registered Referred Jairon LockhartKtae Ruvalcaba Start: 05-15-2024 End: 05-15-2024 ambulatory Jairon Medel OLS Facility:[facility] Start: 05-12-2024 End: 05-12-[address] Warner Leos MD Work Phone: [facility] Work Phone: Start: 05-12-2024 End: 05-12-2024 Patient encounter procedure Jane Barth NP-Donnie -[facility] Work Phone: Start: 05-01-2024 End: 05-01-[address] Warner Leos MD Work Phone: [facility] Work Phone: Start: 05-01-2024 End: 05-01-2024 Departed Referred Jairon Ruvalcaba Start: 05-01-2024 End: 05-01-2024 ambulatory Efmargarette Medel OLS Facility:[facility] Start: 04-26-2024 End: 04-26-2024 ambulatory Jane Barth DESKTOP ANALYST Facility:[facility] Start: 04-26-2024 End: 04-26-2024 Patient encounter procedure Jane Barth DESKTOP ANALYST- -[facility] Work Phone: Start: 04-11-2024 End: 04-11-2024 ambulatory Jairon Medel Facility:[facility] Start: 04-11-2024 End: 04-11-[address] [facility] Start: 04-03-2024 End: 04-03-2024 Patient encounter procedure Jane Barth DESKTOP ANALYST-C -[facility] Work Phone: Start: 04-03-2024 End: 04-03-2024 ambulatory Jane Barth DESKTOP ANALYST Facility:[facility] Start: 04-03-2024 Registered Referred Jairon Ruvalcaba Start: 03-27-2024 ambulatory Jairon TREVIÑO Fa cility:[facility] Start: 03-27-2024 Registered Referred Jairon LockhartKate Ruvalcaba Start: 02-29-2024 End: 02-29-2024 ambulatory Jairon Medel Facility:[facility] Start: 02-29-2024 End: 02-29-[address] Jairon Medel MD -[facility] Work Phone: Start: 02-28-2024 End: 02-28-2024 Departed Referred Jairon LockhartKate Ruvalcaba Start: 02-28-2024 End: 02-28-2024 ambulatory Jairon TREVIÑO Facility:[facility] Start: 02-24-2024 End: 02-24-2024 ambulatory Jane Barth DESKTOP ANALYST Facility:[facility] Start: 02-24-2024 End: 02-24-2024 Patient encounter procedure Jane Barth DESKTOP ANALYST-C -[facility] Work Phone: Start: 02-11-2024 End: 02-23-[address] LARRY THOMAS DO Facility:[facility] Start: 02-09-2024 End: 02-10-2024 Emergency department patient visit ELDA DEL ROSARIO APRN-SODA ROOM OPERATOR Facility:[facility] Start: 02-09-2024 End: 02-10-2024 Observation ELDA DEL ROSARIO APRN-SODA ROOM OPERATOR [facility] Start: 01-21-2024 End: 01-21-2024 Emergency department patient visit INES DENNIS MD [facility] Start: 01-05-2024 End: 01-05-[address] LARRY THOMAS DO [facility] Start: 01-05-2024 End: 01-05-[address] LARRY THOMAS DO [facility] Start: 12-29-2023 End: 12-29-[address] LARRY THOMAS DO [facility] Start: 12-29-2023 End: 12-29-[address] LARRY THOMAS DO [facility] Start: 12-21-2023 End: 12-21-[address] LARRY THOMAS DO [facility] Start: 12-21-2023 End: 12-21-[address] LARRY THOMAS DO [facility] Start: 12-18-2023 End: 01-26-[address] LARRY THOMAS DO Facility:[facility] Start: 12-15-2023 End: 12-15-[address] LARRY THOMAS DO [facility] Start: 12-15-2023 End: 12-15-[address] LARRY THOMAS DO [facility] Start: 12-15-2023 End: 12-19-[address] LARRY THOMAS DO [facility] Start: 12-15-2023 End: 12-19-[address] LARRY THOMAS DO [facility] Start: 12-09-2023 End: 12-09-2023 Emergency department patient visit INES DENNIS MD [facility] Start: 11-29-2023 End: 11-29-2023 Emergency department patient visit SONNY STAHL DO [facility] Start: 07-08-2023 End: 07-09-[address] LARRY THOMAS DO Facility:[facility] Start: 07-08-2023 End: 07-08-[address] LARRY THOMAS DO [facility] Start: 04-14-2023 End: 04-15-2023 ambulatory MAHAD LORENZO MD Facility:[facility] Start: 04-14-2023 End: 04-14-2023 Patient encounter procedure MAHAD LORENZO MD [facility] Start: 04-09-2023 End: 05-06-[address] LARRY THOMAS DO Facility:[facility] Start: 04-09-2023 End: 02-14-[address] LARRY THOMAS DO Facility:[facility] Start: 04-07-2023 End: 04-08-[address] LARRY THOMAS DO Facility:[facility] Start: 04-07-2023 End: 04-07-2023 Patient encounter procedure MAHAD LORENZO MD [facility] Start: 03-10-2023 End: 03-11-[address] LARRY THOMAS DO Facility:[facility] Start: 12-14-2022 End: 12-15-[address] LARRY THOMAS DO Facility:[facility] Start: 2022 End: 11-09-[address] LARRY THOMAS DO Facility:[facility] Start: 2022 End: 11-09-2022 Coordination of care plan DR LARRY THOMAS DO [facility] Start: 09-16-2022 End: 09-17-[address] LARRY THOMAS DO Facility:[facility] Start: 07-16-2022 End: 07-17-[address] ANISA GOMEZ MD Facility:[facility] Start: 06-19-2022 End: 06-19-[address] ANISA GOMEZ MD [facility] Start: 06-03-2022 Telephone encounter Puala Yepez MD Work Phone: General Surgery Comment on above: Request for medical records Start: 04-15-2022 End: 04-15-[address] LARRY THOMAS DO [facility] Start: 04-14-2022 End: 04-14-[address] LARRY THOMAS DO [facility] Start: 04-06-2022 End: 04-07-2022 ambulatory PAULA ALANIZ Facility:[facility] Start: 04-06-2022 End: 04-06-2022 Patient encounter procedure Paula Alaniz MD Work Phone: General Surgery Comment on above: Abnormal ultrasound of breast; History of left breast cancer Start: 03-23-2022 End: 03-23-2022 Patient encounter procedure ALANNA WRIGHT DO [facility] Start: 03-09-2022 End: 03-09-[address] LARRY THOMAS DO [facility] Start: 02-23-2022 End: 02-23-2022 Patient encounter procedure ALANNA WRIGHT DO [facility] Start: 01-22-2022 End: 01-22-2022 Patient encounter procedure ALANNA WRIGHT DO [facility] Start: 12-25-2021 End: 11-17-2022 Emergency department patient visit INES DENNIS MD [facility] Start: 12-03-2021 End: 12-06-[address] KEVIN VIRGEN MD [facility] Start: 05-05-2021 End: 05-05-2021 Patient encounter procedure ALANNA Herrera ADRIANA [facility] Start: 12-11-2020 End: 12-11-2020 Patient encounter procedure SEAN POOLE MD [facility] Start: 03-01-2018 Patient encounter procedure [facility] Start: 01-17-2018 End: 01-17-2018 Patient encounter procedure Carla Dye MD Work Phone: [facility] Work Phone: Start: 05-18-2017 Patient encounter procedure [facility] Procedures Date Procedure Procedure Detail Performing [...] Date Care Activity Detail Author Start: 07-24-2024 [facility] Start: 02-08-2022 ADVANCE DIRECTIVE DISCUSSION ADVANCE DIRECTIVE DISCUSSION [facility] Start: 02-08-2022 DEPRESSION ASSESSMENT DEPRESSION ASSESSMENT [facility] Start: 08-10-2021 COVID-19 VACCINE (5 - Booster for Moderna series) COVID-19 VACCINE (5 - Booster for Moderna series) [facility] Start: 01-17-2018 End: 01-17-2018 Appointment Appointment [facility] Work Phone: Start: 09-23-2003 BONE DENSITY BONE DENSITY [facility] Start: 09-23-2003 PNEUMOCOCCAL: 65+ (1 - PCV) PNEUMOCOCCAL: 65+ (1 - PCV) [facility] Start: 1988 SHINGRIX VACCINE (1 of 2) SHINGRIX VACCINE (1 of 2) [facility] Start: 09-23-1983 DIABETES SCREEN DIABETES SCREEN [facility] Start: 1957 Urine microalbumin profile DTAP,TDAP,TD (1 - Tdap) [facility] Patient Education [facility] Work Phone: Patient referral [facility] Work Phone: Immunizations Immunization Date Immunization Notes Care Provider Fa [facility] 12-27-2022 SARS-CoV-2 (COVID-19 ) [id number] MAHAD LORENZO MD [facility] 11-05-2022 zoster vaccine recombinant MAHAD LORENZO MD [facility] 10-03-2022 influenza virus vacc ine, unspecified formulation MAHAD LORENZO MD [facility] 09-15-2022 pneumococcal 20-lisa nt conjugate vaccine MAHAD LORENZO MD [facility] 01-10-2022 influenza virus vacc ine, unspecified formulation MAHAD LORENZO MD [facility] 06-15-2021 SARS-CoV-2 (COVID-19 ) [id number] vaccine MAHAD LORENZO MD [facility] 12-12-2020 SARS-CoV-2 (COVID-19 ) [id number] vaccine MAHAD LORENZO MD [facility] Comment on above: Result Comment: 2022: [id number] 10-22-2020 influenza virus vacc ine, unspecified formulation MAHAD LORENZO MD [facility] 03-28-2020 COVID-19, mRNA, LNP- S, PF, 100 mcg/ 0.5 mL dose; Translations: [Moderna COVID-19 Vaccine] SEAN POOLE MD [facility] 02-29-2020 COVID-19, mRNA, LNP- S, PF, 100 mcg/ 0.5 mL dose; Translations: [Moderna COVID-19 Vaccine] SEAN POOLE MD [facility] 10-12-2019 influenza virus vacc ine, unspecified formulation SEAN POOLE MD [facility] Comment on above: Result Comment: phar liv administered 10-11-2019 influenza virus vacc ine, unspecified formulation MAHAD LORENZO MD [facility] 10-11-2019 pneumococcal conjuga te vaccine, 13 valent SEAN POOLE MD [facility] 10-07-2018 influenza virus vacc ine, unspecified formulation SEAN POOLE MD [facility] 12-21-2017 influenza virus vacc ine, unspecified formulation SEAN POOLE MD [facility] 10-27-2016 influenza virus vacc ine, unspecified formulation SEAN POOLE MD [facility] 10-29-2015 influenza virus vacc ine, unspecified formulation SEAN POOLE MD [facility] 10-30-2014 influenza virus vacc ine, unspecified formulation SEAN POOLE MD [facility] 10-31-2013 influenza virus vacc ine, unspecified formulation SEAN POOLE MD [facility] 11-01-2012 influenza virus vacc ine, unspecified formulation SEAN POOLE MD [facility] 01-09-2005 pneumococcal polysaccharide vaccine, 23 valent SEAN POOLE MD [facility] No information available. Rigo Best AT [facility] Work Phone: Payers Date Payer Category Payer Self-pay [id number] 2017 Private Health Insurance [id number] 2017 Unknown [id number] 2003 Medicare [id number]. 1.13.159.2.7.3.6 [id number] 2003 Medicare [id number] 1940 Unknown [id number] 2.16.840.1.569446.3.579.2.627 1938 Unknown [id number] 2.16.840.1.963924.3.579.2.627 1938 Unknown [id number] 2.16.840.1.140654.3.579.2. 1938 Unknown [id number] 2.16.840.1.125795.3.579.2. 1938 Unknown [id number] 2.16.840.1.204983.3.579.2. 1938 Unknown [id number] 2.16.840.1.443508.3.579.2. 1938 Unknown [id number] 2.840.1.058264.3.579.2 1938 Unknown [id number] 2.840.1.600339.3.579.2 1938 Unknown [id number] 2.840.1.597703.3.579.2. 1938 Unknown [id number] 2.840.1.020719.3.579.2. 1938 Unknown [id number] 2.840.1.507368.3.579.2. 1938 Unknown [id number] 2.840.1.002974.3.579.2. 1938 Unknown [id number] 2.840.1.670540.3.579.2. 1938 Unknown [id number] 2.840.1.480221.3.579.2. 1938 Unknown [id number] 2.840.1.520128.3.579.2. 1938 Unknown [id number] 2.840.1.332686.3.579.2. 1938 Unknown [id number] 2.840.1.089071.3.579.2 Medicare MEDICARE PART A B [id number] 1 [id number] Unknown [id number] 2.16.840.1.574325.3.579.2.462 Unknown [id number] 2.16.840.1.561728.3.579.2.462 Unknown [id number] 2.16840.1.202322.3.579.2.462 Unknown [id number] 2.16.840.1.067471.3.579.2.462 Unknown [id number] 2.840.1.034919.3.579.2.462 Unknown [id number] 2..840.1.816391.3.579.2.462 Unknown [id number] 2.840.1.078286.3.579.2.462 Unknown [id number] 2.840.1.616369.3.579.2.462 Unknown [id number] 2.840.1.990019.3.579.2.462 Unknown [id number] 2.840.1.589354.3.579.2.462 Unknown [id number] 2.840.1.228322.3.579.2.462 Unknown [id number] 2.840.1.515810.3.579.2.462 Unknown [id number] 2.840.1.750384.3.579.2.462 Unknown [id number] 2.840.1.090995.3.579.2.462 Unknown [id number] 2.16.840.1.235714.3.579.2.462 Unknown [id number] 2.16.840.1.163602.3.579.2.462 Unknown [id number] 2.16.840.1.687276.3.579.2.462 Unknown [id number] 2.16.840.1.257630.3.579.2.462 Unknown [id number] 2.16.840.1.006515.3.579.2.462 Unknown [id number] 2.16.840.1.528695.3.579.2.462 Unknown [id number] 2.16.840.1.183951.3.579.2.462 Unknown [id number] 2.16.840.1.699949.3.579.2.462 Unknown [id number] 2.16.840.1.566689.3.579.2.462 Unknown [id number] 2.16.840.1.894796.3.579.2.462 Social History Date Type Detail Facility Start: 01-17-2018 End: 01-17-2018 Assertion Unknown if ever smoked [facility] Work Phone: Start: 04-07-2019 End: 08-26-2024 Never smoked tobacco (finding) [facility] Sex Assigned At [facility] Start: 04-06-2022 Tobacco use and exposure Smokeless tobacco non-user [facility] Start: 04-06-2022 Alcohol intake Current non-dr checkroom chief of alcohol (finding) [facility] Start: 1940 Sex Assigned At Not on file [facility] Start: 05-25-2013 End: 05-31-2024 Sex Female (finding) [facility] Start: 1940 Sex Assigned At Female [facility] Sex Female [facility] Medical Equipment Procedure Code Equipment Code [...] rgay q2hrs Performed Other: 7AM - 4PM [facility] 02-10-2024 Functional Status Financial gaston gement, Home management, Laundry, Meal preparation, Personal ADL, Shopping [facility] 02-10-2024 Functional Status Sup [facility] 02-10-2024 Functional Status Identified as high risk, Door open, Non-Slip footwear, Room check performed [facility] 02-10-2024 Functional Status [facility] 02-10-2024 Functional Status [facility] 02-10-2024 Functional Status [facility] 02-09-2024 Functional Status [facility] 01-21-2024 Functional Status Minimum assistance [facility] 01-21-2024 Functional Status Independent [facility] 12-09-2023 Functional Status Minimum assistance [facility] 12-09-2023 Functional Status ID band on, Call device within reach, Bed in low position, Wheels locked, Upper/Half-Length side-rails up, Visitor at bedside, Safety level maintained [facility] 11-29-2023 Functional Status Up ad nazario [facility] 11-29-2023 Functional Status Standard Safet y ID band on, Call device within reach, Bed in low position, Wheels locked, Upper/Half-Length side-rails up, Visitor at bedside [facility] 06-19-2022 Functional Status Sensory Deficits None [facility] 12-25-2021 Functional Status Independent [facility] 12-06-2021 Functional Status None [facility] 12-06-2021 Functional Status Room check performed [facility] 12-06-2021 Functional Status [facility] 12-06-2021 Functional Status [facility] 12-05-2021 Functional Status [facility]05[facility] Functional Status [facility] 12-05-2021 Functional Status Mod A 1 [facility] 12-04-2021 Functional Status Single level home [facility] 12-04-2021 Functional Status [facility] 12-04-2021 Functional Status [facility] 12-04-2021 Functional Status [facility] 12-04-2021 Functional Status [facility] 12-04-2021 Functional Status SCD On/Re-appl ied bilateral knee high [facility] 12-03-2021 Functional Status Ambulation in Room [facility] Mental Status Date Assessment Result Facility 02-10-2024 Mental Status Not oriented to time, Forgetful, Follows simple commands [facility] 02-09-2024 Mental Status [facility] 02-09-2024 Mental Status [facility] 01-21-2024 Mental Status Orientation Not oriented to situation, Forgetful [facility] 01-21-2024 Mental Status [facility] 12-09-2023 Mental Status Orientation Oriented x 4 [facility] 12-09-2023 Mental Status [facility] 11-29-2023 Mental Status Orientation Oriented x 4 [facility] 11-29-2023 Mental Status [facility] 12-25-2021 Mental Status Orientation Oriented x 4 [facility] 12-06-2021 Mental Status Oriented x 4, Forgetful [facility] 12-06-2021 Mental Status [facility] 12-06-2021 Mental Status [facility] Clinical Notes 12-03-2021 to 07-24-2024 Note Date & Type Note Facility 07-24-2024 Discharge summary [facility] 07-24-2024 Radiology Diagnostic study note [facility] Imaging Services [address] [place] [address] HIP, UNI W/ Pelvis 2-3 Views MR#: [id number] Acct: [id number] Name: CT DALTON Rep #: [id number] : 1940 F 83 From: Jane Vance MD PCP: Dr. Jairon Medel MD Status: R EG ER Study:HIP, UNI W/ Pelvis 2-3 Views Date of Ex am: 07/24/24 Exam# [id number] Ordering Dr: Sharon Harry MD PROCEDURE: HIP, [...] Right hip moderate degenerative changes. Reading [facility] CC: Dr. Jairon Medel MD; Dr. Jean Claude Harry MD ~ Compactor Driver: Signed [facility] 02-10-2024 Hospital Discharge instructions Patient Education 02/10/2024 15:03:52 Dementia, Qwdx-jr-Xfdr Dementia Dementia is a condition that affects [...] Follow these instructions at home: Medicines Take krmu-ain-cnaspxv and prescription medicines only as told by [...] 01/07/2009 Document Revised: 04/11/2019 Document Reviewed: 04/11/2019 [employer] Patient Education 2020 [employer] Follow Up Care 02/09/2024 19:37:05 With:LARRY THOMAS DO Address: [address] [place] [address] [phone] When:02/16/2024 09:30:00 Comments:This is your post-hospital appointment. Follow-up as scheduled. [facility] 02-10-2024 Note Discharge Instructions Thank you for allowing [facility] to assist you with your healthcare needs. The following is important discharge information regarding your hospital visit. Your Care Team SUSY ALBRIGHT APRN-SODA ROOM OPERATOR Your Diagnosis (HFpEF) heart failure with preserved ejection fraction Dementia Weakness What to do next Scheduled Follow-Up Appointments Appointment Type When With Where Contact Information StatusPC OV 02/16/2024 09:30 AM EST LARRY THOMAS DO [address] [phone] Confirmed Follow Up Appointments Follow Up with LARRY THOMAS DO When:02/16/2024 09:30 AM EST Where:[address] [place] [phone] Additional Information: This is your post-hospital appointment. [...] providers or retail pharmacies. Medication Leaflets memantine ([facility] MAN teen) Nameroycea, Katherine JACOBSON What [...] may report side effects to FDA at 8-216-GMO-0643. What other drugs will affect memantine? Tell [...] may interact with memantine, including prescription and xpve-jea-xbzksig medicines, vitamins, and herbal products. Not all [...] to ensure that the information provided by [employer]. ('Mult[employer]') is accurate, up-to-date, and complete, but no guarantee is made to that effect. Drug information contained herein may be time sensitive. Article[employer]ley information has been compiled for use by healthcare practitioners and consumers in the [place] and therefore [employer] does not warrant that uses outside of the [place] are appropriate, unless specifically indicated otherwise. [employer]'s drug information does not endorse drugs, diagnose patients or recommend therapy. Miyaobabeis drug information is an informational resource designed [...] effective or appropriate for any given patient. [facility] does not assume any responsibility for any aspect of healthcare administered with the aid of information [facility] provides. The information contained herein is not intended to cover all possible uses, directions, precautions, warnings, drug interactions, allergic reactions, or adverse effects. If you have questions about the drugs you are taking, check with your doctor, nurse or pharmacist. Copyright 3211-9523 [facility] HospitalTrafficLandShopcaster. Version: 5.. Revision Date: 09/21/2022. Education Materials [...] Follow these instructions at home: Medicines Take npfi-umf-bfsjfgo and prescription medicines only as told by [...] Document Reviewed: 04/11/2019 Elsevier Patient Education 2019 [employer] Additional Information VACCINATE! IT SAVES LIVES! Members of the community who have not yet received the COVID-19 vaccine and would like to receive it can visit one of [facility] vaccine clinics. There are many vaccine clinic locations within the [facility]. For locations and available times, please visit https://gettheshot.coronavirus.[place].gov/. It is important to note that some COVID mobile vaccine clinics are held outdoors and may be canceled in rainy or stormy conditions. To learn more about pediatric vaccinations (ages 5-11), we invite you to visit the [employer] webpage. https://www.ClubKviars.org/pag es/2711-Elcqd-Djmehtyyhrl-Frequent mz-Sohsx-Afovgaocu.html To learn more about the COVID-19 vaccine, we invite you to visit the CDC website for a list of frequently asked questions.https://www.cdc.gov/armando navirus/2019-ncov/vaccines/faq.htm l MD.Voice Patient Portal Access Instructions: Stay connected with your healthcare team and access your personal medical information anytime with the MD.Voice Patient Portal. Please follow the directions below to create your MD.Voice account: 1.Access the email account you provided upon registration to the hospital/physician office.2.Look for an invitation email from [facility].3.Open the email and access the invitation link: Accept Invitation to [facility].4.Fill in the required alejandro to create your account. To access your account, visit [email or web address]. Click the blue button labeled Access Patient [...] you will allow to register [facility] the [facility] for access to your information. You can also access the [facility] Patient Portal on the [facility] angelica. Simply click on Patient Portal and then log into your account. If you would like to receive a full copy of your medical records, please contact the [facility] Medical Records Department by calling [phone], Wednesday through Wednesday between 8 a.m. and [...] Call your local pharmacy or go to http://CitiLogics/1C3Rs1d to find one close to you.3.Make use of household items: Use cat litter or old coffee grounds to dispose medications if other options are not available. Mix your drugs with these household products, seal them in an airtight container and throw it into the garbage. Call [facility]: [phone] to be sure your drugs can be [...] CHART COPY. Signatures Patient Education Materials Dementia, Uuvs-kz-Oyim Medication Leaflets memantine My discharge plan and instructions have been reviewed and explained to me and I,CT DALTON understand my current condition and have read and understand these discharge instructions. I have received a written copy of the plan/instructions. If I have questions, I am aware that I should contact my doctor. Patient/Stitch Marker Signature: Date/Time: Relationship to Patient: ___ Witness Name/Signature: Date/Time: [facility] 02-10-2024 Evaluation + Plan note Extrac yamilet from: Title:History and Physical Author:SUSY ALBRIGHT APRN-SODA ROOM OPERATOR Date:02/10/24 1. Weakness 2. (HFpEF) heart failure [...] Date:02/16/2024 09:30:00 AM Scheduled Provider:LARRY THOMAS DO [facility] Type: OV [facility] 01-02-2025 Note Date of Service 02/10/24 Chief Complaint patient called EMS with complaint of BLE swelling. patient poor historian but continues to report BLE swelling on arrival. also states that she feels weak. History of Present Illness 83 year old female with past medical history of dementia, urinary frequency, dizziness, breast cancer, CKD Stage 3, anemia, HLD, HFpEF. Patient presented to [facility] ED on 02/09/24 due to family [...] by SUSY ALBRIGHT on 02/10/2024 10:21 AM [place] [address]-01-2025 Note* Exam Date Time Procedure Performing Provider Status 02/09/24 8:10 PM XR Chest 1 View EILEEN CHRISTINE DO; Aut h (Verified) [id number] ORIGINAL EXAMINATION: ONE XRAY VIEW OF THE [...] PM Ordering Provider: TRIXIE BARONE [facility]01-01-2025 Note* Exam Date Time Procedure Performing Provider Status 02/09/24 7:59 PM EKG [ED AOH] - CV MD TRIXIE BARONE MD; Auth (Verified) ECG Final Report Sinus rhythm LVH by voltage Inferior infarct, old Anterior Q waves, possibly due to LVH Electronic Signature: MD TRIXIE BARONE MD 02/09/2024 20:03:00 [facility]12-13-2024 Hospital Discharge instructions Patient Education 01/21/2024 11:14:13 [...] mid-urethra. Front view of female urinary tract. 3077-[address] [employer] [place] [address]. All rights reserved. This information is not intended as a substitute for professional medical care. Always follow yourhealthcare professional's instructions. Follow Up Care 01/21/2024 09:33:55 With:LARRY THOMAS DO Address: [address] [place] [phone] When:2-4 days [facility] 12-13-2024 Note Discharge Instructions Thank you for allowing [facility] to assist you with your healthcare needs. The following is importantdischarge information regarding your hospital visit. Diagnosis from Today's Visit Bladder pain What to Do Next Instructions from Your Care Team No qualifying data available. Post Acute Orders No qualifying data available. You Need to Schedule the Following Appointments Follow Up with LARRY THOMAS DO When:Within 2-4 days Where:[address] [place] [address] [phone] Allergies NKA Medications Please ask your primary [...] mid-urethra. Front view of female urinary tract. 3453-5024 [employer] [place] [address]. All rights reserved. This information is not intended as a substitute for professional medical care. Always follow yourhealthcare professional's instructions. Additional Information VACCINATE! IT SAVES LIVES! Members of the community who have not yet received the COVID-19 vaccine and would like to receive it can visit one of [facility] vaccine clinics. There are many vaccine clinic locations within the [facility]. For locations and available times, please visit www.gettheshot.coronavirus.[place].gov/. It is important to note that some COVID mobile vaccine clinics are held outdoors and may be canceled in rainy or stormy conditions. To learn more about pediatric vaccinations (ages 5-11), we invite you to visit the [facility] webpage. https://www.[facility].org/pages/5511-Kwmex-Vxxhatsibfm-Uanbtuyaba-Myevs-Ffj stions.htmlTo learn more about the COVID-19 vaccine, we invite you to visit the CDC website for a list of frequently asked questions. https://www.cdc.gov/coronavirus/2019-ncov/vaccines/faq.html [facility] [employer] Patient Portal Access Instructions: Stay connected with your healthcare team and access your personal medical information anytime with the [facility] Patient Portal. If you would like a full copy of your medical records please contact the [facility] Medical Records Department Wednesday through Wednesday between 8a.m. and 4:30p.m. Please follow the directions below to access the portal: 1.Access the email account you provided upon registration to the [facility].2.Look for an invitation email from [facility].3.Open the email and access the invitation link: Accept [facility]itation to [facility]4.Fill in the required alejandro to create your account. Sign into [email or web address] with your username and password that you [...] you will allow to register on the [facility] Patient Portal for access to your information. You can also access the [facility] Patient Portal on the [employer] Based [employer]. Simply click on Health Records under Ultra ElectronicsData and then click on the Qualnetics logo. HOW TO SAFELY DISPOSE OF PRESCRIPTION [...] Call your local pharmacy or go to http://bit.Sendmebox/3V6Zb8o to find one close to you.3.Make use of household items: Use cat litter or old coffee grounds to dispose medications if other options arenot available. Mix your drugs with these household products, seal them in an airtight container andthrow it into the garbage. Call [facility]: [phone] to be sure your drugs can be [...] aware that I should contact my doctor. Patient/Stitch Marker Signature: Date/Time: Relationship to Patient: Witness Name/Signature: Date/Time: [facility]11-12-2024 Note ORIGINAL EXAMINATION: AP lateral obliques 4 [...] By: Jalil Downey MD Electronically signed By aJlil Downey MD Dictated Date: 12/21/2023 4:31:09 PM Prelim Date: 12/21/2023 4:34:05 PM Sign Date: 12/21/2023 4:34:05 PM Ordering Provider: [facility]11-12-2024 Note ORIGINAL EXAMINATION: TWO XRAY VIEWS [...] Sign Date: 12/21/2023 4:21:17 PM [facility] Note. MICRO - Microbiology PROCEDURE: [...] Locations *1: This test was performed at: [facility], [address] [place] [address], [phone]- , [facility]10-31-2024 Hospital Discharge instructions Patient Education 12/09/2023 [...] mid-urethra. Front view of female urinary tract. 0411-7450 [employer]. [address] [place] [address]. All rights reserved. This information is not intended as a substitute for professional medical care. Always follow yourhealthcare professional's instructions. Follow Up Care 12/09/2023 08:33:51 With:LARRY THOMAS DO Address: [address] [place] [address]- [phone] When:2-4 days [facility] 10-31-2024 Note Discharge Instructions Thank you for allowing [facility] to assist you with your healthcare needs. The following is importantdischarge information regarding your hospital visit. Diagnosis from Today's Visit Urinary frequency What to Do Next Instructions from Your Care Team No qualifying data available. Post Acute Orders No qualifying data available. You Need to Schedule the Following Appointments Follow Up with LARRY THOMAS DO When:Within 2-4 days Where:[address] [place] [address]- [phone] Allergies NKA Medications Please ask your primary [...] mid-urethra. Front view of female urinary tract. 5740-9479 [employer]. [address] [place] [address]. All rights reserved. This information is not intended as a substitute for professional medical care. Always follow yourhealthcare professional's instructions. Additional Information VACCINATE! IT SAVES LIVES! Members of the community who have not yet received the COVID-19 vaccine and would like to receive it can visit one of [facility] vaccine clinics. There are many vaccine clinic locations within the [facility]. For locations and available times, please visit www.gettheshot.coronavirus.[place].gov/. It is important to note that some COVID mobile vaccine clinics are held outdoors and may be canceled in rainy or stormy conditions. To learn more about pediatric vaccinations (ages 5-11), we invite you to visit the [employer] [facility] webpage. https://www.[facility].org/pages/3750-Qkaob-Etyjngzpeiw-Imrczeumzw-Nekpf-Swu stions.htmlTo learn more about the COVID-19 vaccine, we invite you to visit the CDC website for a list of frequently asked questions. https://www.cdc.gov/coronavirus/2019-ncov/vaccines/faq.html [facility] Patient Portal Access Instructions: Stay connected with your healthcare team and access your personal medical information anytime with the [facility] Patient Portal. If you would like a full copy of your medical records please contact the [facility] Medical Records Department Wednesday through Wednesday between 8a.m. and 4:30p.m. Please follow the directions below to access the portal: 1.Access the email account you provided upon [facility].2.Look for an invitation email from [facility].3.Open the email and access the invitation link: Accept Invitation to [facility]4.Fill in the required alejandro to create your account. Sign into www.MyFrontSteps with your username and password that you [...] you will allow to register on the MD.Voice Patient Portal for access to your information. You can also access the MD[facility]Voice Patient Portal on the [employer] angelica. Simply click on Health Records under CrossTx and then click on the Qualnetics logo. HOW TO SAFELY DISPOSE OF PRESCRIPTION [...] Call your local pharmacy or go to http://Construction [employer].Sendmebox/2Y4Kk1x to find one close to you.3.Make use of household items: Use cat litter or old coffee grounds to dispose medications if other options arenot available. Mix your drugs with these household products, seal them in an airtight container andthrow it into the garbage. Call [facility]: [phone] to be sure your drugs can be [...] aware that I should contact my doctor. Patient/Stitch Marker Signature: Date/Time: Relationship to Patient: Witness Name/Signature: Date/Time: [facility]10-21-2024 Hospital Discharge instructions Patient Education 11/29/2023 12:04:12 [...] or swelling over your back or spine [phone] [employer]. [address] [place] [address]. All rights reserved. This information is not intended as a substitute for professional medical care. Always follow yourhealthcare professional's instructions. Follow Up Care 11/29/2023 08:56:34 With:Go to emergency room if symptoms worsen Address:Unknown When:2-4 days With:LARRY THOMAS DO Address: [address] [place] [address] [phone] When:2-4 days [facility] 10-21-2024 Note Discharge Instructions Thank you for allowing [facility] to assist you with your healthcare needs. [...] with LARRY THOMAS DO When:Within 2-4 days Where:[address] [place] [phone] Allergies NKA Medications Please ask your primary [...] or swelling over your back or spine [phone] [employer]. [address] [place] [address], [place] [address]. All rights reserved. This information is not intended as a substitute for professional medical care. Always follow yourhealthcare professional's instructions. Additional Information VACCINATE! IT SAVES LIVES! Members of the community who have not yet received the COVID-19 vaccine and would like to receive it can visit one of [facility] vaccine clinics. There are many vaccine clinic locations within the [facility]. For locations and available times, please visit www.[email or web address]/. It is important to note that some COVID mobile vaccine clinics are held outdoors and may be canceled in rainy or stormy conditions. To learn more about pediatric vaccinations (ages 5-11), we invite you to visit the [employer] Childrens webpage. https://www.ClubKviars.org/pages/3093-Wfkld-Pikdcukvwlt-Eefylowriu-Azbfh-Xwb stions.htmlTo learn more about the COVID-19 vaccine, we invite you to visit the CDC website for a list of frequently asked questions. https://www.cdc.gov/coronavirus/2019-ncov/vaccines/faq.html [facility] Patient Portal Access Instructions: Stay connected with your healthcare team and access your personal medical information anytime with the [facility] Patient Portal. If you would like a full copy of your medical records please contact the [facility] Medical Records Department Wednesday through Wednesday between 8a.m. and 4:30p.m. Please follow the directions below to access the portal: 1.Access the email account you provided upon registration to the hospital.2.Look for an invitation email from [facility].3.Open the email and access the invitation link: Accept Invitation to [facility]4.Fill in the required alejandro to create your account. Sign into www.MyFrontSteps with your username and password that you [...] you will allow to register on the MD.Voice Patient Portal for access to your information. You can also access the MD[facility]Voice Patient Portal on the [employer] angelica. Simply click on Health Records under CrossTx and then click on the [employer] logo. HOW TO SAFELY DISPOSE OF PRESCRIPTION [...] Call your local pharmacy or go to http://[employer].Sendmebox/9T1Bs6c to find one close to you.3.Make use of household items: Use cat litter or old coffee grounds to dispose medications if other options arenot available. Mix your drugs with these household products, seal them in an airtight container andthrow it into the garbage. Call [facility]: [phone] to be sure your drugs can be [...] aware that I should contact my doctor. Patient/Stitch Marker Signature: Date/Time: Relationship to Patient: Witness Name/Signature: Date/Time: [facility]10-21-2024 Note ORIGINAL HISTORY: Pain COMPARISON: No FINDINGS: [...] Date: 11/29/2023 11:51:51 AM Ordering Provider: [facility]03-06-2024 Note ORIGINAL EXAMINATION: CT OF [...] Sign Date: 04/14/2023 10:35:22 AM Ordering Provider: [facility]04-26-2023 Miscellaneous Notes* Telephone Encounter - Brenton Jennings RN - 06/03/2022 11:26 AM EDT Received a request from [facility] for all of Ct's left breast cancer treatment medical records. Faxed the request to medical records on [facility], fax confirmation sheet received. Brenton Jennings RN [facility] Note ORIGINAL EXAMINATION: ULTRASOUND OF [...] Date: 04/15/2022 10:15:33 AM Ordering [facility]03-08-2023 Note ORIGINAL EXAMINATION: ULTRASOUND OF THE KIDNEYS [...] Sign Date: 04/15/2022 10:15:33 AM Ordering Provider: [facility]02-28-2023 NoteHNO ID: [id number] Author: Paula Alaniz MD Service: ? Author [...] needle core breast biopsies on 03/23/2022 at [facility]. Findings of fat necrosis, inflammation and [...] cancer Kidney Disease Sister Heart disease Brother [place] The review of systems data was entered by the nurse and reviewed by ok Nursing Notes: Mini BrookeMATILDE 04/06/2022 9:50 AM [...] of skin c (more content not included)... [facility]02-28-2023 History of Present illness Narrative* Paula Alaniz [...] needle core breast biopsies on 03/23/2022 at [facility]. Findings of fat necrosis, inflammation and [...] cancer Kidney Disease Sister Heart disease Brother [place] The review of systems data was entered [...] her studies and testing were done at [facility], I have recommended that she proceed with her evaluation/treatment there. The breast radiologists there have recommended wire localization lumpectomy of the left breast. I have told her that I could offer her the same but it would be at [facility]. She states thatshe would prefer [facility] as it is closer to home. [...] Low Paula Alaniz MD documented in [facility]02-27-2023 Nurse Note* Mini BrookeMATILDE - 04/06/2022 9:47 [...] ago Mini Brooke LPN documented in this [facility]12-15-2022 Note ORIGINAL FROM: [facility] [address] [place], [place] [address] PROCEDURE FOR: [address] [place] [address] Home: PID#: [id number] Exam#: [id number] : 1940 Age: 81 TO: ALANNA WRIGHT DO [address] [place], [place] [address] Fax: NO FAX EXAMINATION: ULTRASOUND OF THE [...] ALANNA WRIGHT CLINICAL: MAMMOGRAPHIC DENSITY LEFT BREAST. Human Resources Designate: JOSIE RUIZ RT(R) RDMS letter sent: Biopsy Recommended BI-RADS 4 and 5 Ultrasound BI-RADS: 4 Suspicious for malignancy [facility]12-15-2022 Note ORIGINAL FROM: [facility] [address] [place] [address] PROCEDURE FOR: CT [address] [place] [address] Home: PID#: [id number] Exam#: [id number] : 1940 Age: 81 TO: ALANNA WRIGHT DO [address] [place], [place] [address] Fax: NO FAX EXAMINATION: ULTRASOUND OF THE [...] ALANNA WRIGHT CLINICAL: MAMMOGRAPHIC DENSITY LEFT BREAST. Human Resources Designate: JOSIE RUIZ RT(R) RDMS letter sent: Biopsy Recommended BI-RADS 4 and 5 Ultrasound BI-RADS: 4 [facility] Hospital Discharge instructions Patient Education 12/25/2021 17:00:50 Dizziness, Uncertain Cause Dizziness (Uncertain Cause) Dizziness is a common symptom. It may be described as lightheadedness, spinning, or feeling like you are going to faint. Dizziness can have many causes. Be sure to tell the healthcare provider about: All medicines you take, including prescription, xbam-vhb-vkeqipe, herbs, and supplements Any other symptoms you [...] Chest, arm, neck, back, or jaw pain 8363-[address] [employer] [place] [address], [place] [address]. All rights reserved. This information is not [...] medicine was given, you may use an cqlh-bxh-otjmatb product made for clearingearwax (such as Debrox or Murine Earwax Drops). These contain carbamide peroxide and are available mhkc-vok-fxgyydp. Lie down with the blocked ear facing [...] ear Headache, neck pain or stiff neck 4694-[address] [employer] [place] [address]. All rights reserved. This information is not intended as a substitute for professional medical care. Always follow yourhealthcare professional's instructions. Follow Up Care 12/25/2021 15:48:16 With:ALANNA WRIGHT DO Address: [address] [place] [phone] When:2-4 days [facility] 11-17-2022 Note Discharge Instructions Thank you for allowing [facility] to assist you with your healthcare needs. [...] DO When Within 2-4 days Where: [address] [place] [phone] Allergies NKA Medications Please ask your primary [...] about: All medicines you take, including prescription, acqz-zfu-bwrolln, herbs, and supplements Any other symptoms you [...] Chest, arm, neck, back, or jaw pain 0715-3868 [employer]. [address] [place] [address], [place] [address]. All rights reserved. This information is not [...] medicine was given, you may use an iico-qom-fxzpvri product made for clearingearwax (such as Debrox or Murine Earwax Drops). These contain carbamide peroxide and are available xmgv-ywa-aqariue. Lie down with the blocked ear facing [...] ear Headache, neck pain or stiff neck 4140-33[address] [employer] [place] [address], [place] [address]. All rights reserved. This information is not intended as a substitute for professional medical care. Always follow yourhealthcare professional's instructions. Additional Information VACCINATE! IT SAVES LIVES! Members of the community who have not yet received the COVID-19 vaccine and would like to receive it can visit one of [facility] vaccine clinics. There are many vaccine clinic locations within the [facility]. For locations and available times, please visit www.[email or web address]. It is important to note that some COVID mobile vaccine clinics are held outdoors and may be canceled in rainy orstormy conditions. To learn more about pediatric vaccinations (ages 5-11), we invite you to visit the [employer] Childrens webpage. https://www.akronLocoMobis.org/pages/8467-Vbeae-Bfxudhcbivg-Yiwylllmlo-Amalz-Cnb stions.htmlTo learn more about the COVID-19 vaccine, we invite you to visit the [facility] website for a list of frequently asked questions. https://[email or web address]/assets/Fymumnsa-uup-Ljjgbefu/xpyur-Jyrcajl-Muhlownfne _Asked-Questions.pdf [facility] Patient Portal Access Instructions: Stay connected with your healthcare team and access your personal medical information anytime with the [facility] Patient Portal. If you would like a full copy of your medical records please contact the [facility] Medical Records Department Wednesday through Wednesday between 8a.m. and 4:30p.m. Please follow the directions below to access the portal: 1.Access the email account you provided upon [facility].2.Look for an invitation email from [facility].3.Open the email and access the invitation link: Accept Invitation to [facility]4.Fill in the required alejandro to create your account. Sign into www.MyFrontSteps with your username and password that you [...] you will allow to register on the [facility] Patient Portal for access to your information. You can also access the [facility] Patient Portal on the [employer]. Simply click on Health Records under allyveta and then click on the [employer] logo. HOW TO SAFELY DISPOSE OF PRESCRIPTION [...] Call your local pharmacy or go to http://[employer].Sendmebox/9T2Kp2v to find one close to you.3.Make use of household items: Use cat litter or old coffee grounds to dispose medications if other options arenot available. Mix your drugs with these household products, seal them in an airtight container andthrow it into the garbage. Call [facility]: [phone] to be sure your drugs can be [...] aware that I should contact my doctor. Patient/Stitch Marker Signature: Date/Time: Relationship to Patient: Witness Name/Signature: Date/Time: [facility]10-29-2022 Hospital Discharge instructions Patient Education 12/06/2021 14:31:46 Dizziness, Lwym-zj-Umht Dizziness Dizziness is a common problem. It [...] balance is fine. 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 Take haad-yzc-pmtizhe and prescription medicines only as told by [...] 01/14/2012 Document Revised: 01/28/2018 Document Reviewed: 02/11/2017 [employer] Patient Education 2020 [employer]. 12/06/2021 14:31:38 Fall Prevention and Home Safety, Cisl-yl-Hyfj Fall Prevention and Home Safety Falls cause [...] Document Reviewed: 04/26/2012 ExitCare Patient Information 2015 [place], [facility]. This information is not intended to replace advicegiven to you by your health care provider. Make sure you discuss any questions you have with your health care provider. Follow Up Care 12/03/2021 14:18:30 With:[facility], [phone] Address:Unknown When:1-2 days With:ALANNA WRIGHT DO Address: [address] [place] [phone]- When:1-2 days Comments:Please call the office to schedule a follow up appointment [facility] 10-29-2022 Note Discharge Instructions Thank you [...] Bilateral w/ Fer 12/12/2021 03:00 PM EDT [place] Follow Up Appointments Follow Up with [facility], [phone] When Within 1-2 days Follow Up with ALANNA WRIGHT DO When Within 1-2 days Why: Please call the office to schedule a follow up appointment Where: [address] [place] [phone]- The Following Activity and Diet Have Been [...] balance is fine. 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 Take hukt-zsw-vnbdmpe and prescription medicines only as told by [...] 01/14/2012 Document Revised: 01/28/2018 Document Reviewed: 02/11/2017 [employer] Patient Education 2020 [employer] Fall Prevention and Home Safety Falls [...] Document Reviewed: 04/26/2012 ExitCare Patient Information 2015 [employer] [facility]. This information is not intended to replace advicegiven to you by your health care provider. Make sure you discuss any questions you have with your health care provider. Additional Information VACCINATE! IT SAVES LIVES! Members of the community who have not yet received the COVID-19 vaccine and would like to receive it can visit one of [facility] vaccine clinics. There are many vaccine clinic locations within the [facility]. For locations and available times, please visit https://[email or web address]/. It is important to note that some COVID mobile vaccine clinics are held outdoors and may be canceled in rainy or stormy conditions. To learn more about pediatric vaccinations (ages 5-11), we invite you to visit the [facility] webpage. https://www.akronchildrens.org/pages/3111-Xsgzy-Ybscunbcvhx-Deimofywuu-Tvmgv-Vma stions.htmlTo learn more about the COVID-19 vaccine, we invite you to visit the [facility] website for a list of frequently asked questions. https://[email or web address]/assets/Htpxsdgu-gyf-Bomqoznb/icftn-Xtgfrqi-Lulwzmjjtb _Asked-Questions.pdf [facility] Patient Portal Access Instructions: Stay connected with your healthcare team and access your personal medical information anytime with the [facility] Patient Portal.If you would like a full copy of your medical records, please contact the [facility] Medical Records Department, Wednesday through Wednesday between 8a.m. and 4:30p.m. Please follow the directions below to access the portal: 1.Access the email account you provided upon [facility].2.Look for an invitation email from [facility].3.Open the email and access the invitation link: Accept Invitation to [facility]4.Fill in the required alejandro to create your account. Sign into www.MyFrontSteps with your username and password that you [...] you will allow to register on the [facility] Patient Portal for access to your information. You can also access the [facility] Patient Portal on the [employer] angelica. Simply click on Health Records under CrossTx and then click on the [facility] logo. [...] Call your local pharmacy or go to http://bit.Sendmebox/0P1Xw2i to find one close to you.3.Make use of household items: Use cat litter or old coffee grounds to dispose medications if other options arenot available. Mix your drugs with these household products, seal them in an airtight container andthrow it into the garbage. Call [facility]: [phone] to be sure your drugs can be [...] CHART COPY. Signatures Patient Education Materials Dizziness, Dmcj-lb-Peld Fall Prevention and Home Safety, Wfrg-kj-Fbie Medication Leaflets My discharge plan and instructions have been reviewed and explained to me and I,CT DALTON understand my current condition and have read and understand these discharge instructions. I have received a written copy of the plan/instructions. If I have questions, I am aware that I should contact my doctor. Patient/Stitch Marker Signature: Date/Time: Relationship to Patient: Witness Name/Signature: Date/Time: [id number] Note Discharge Instructions Thank you for allowing [...] Bilateral w/ Fer 12/12/2021 03:00 PM EDT [place] [facility] Follow Up Appointments Follow Up with [facility], [phone] When Within 1-2 days Follow Up with ALANNA WRIGHT DO When Within 1-2 days Why: Please call the office to schedule a follow up appointment Where: [address] [place] [address] [phone] The Following Activity and Diet Have Been [...] to receive it can visit one of [facility] vaccine clinics. There are many vaccine clinic locations within the [facility]. For locations and available times, please visit https://[email or web address]/. It is important to note that some COVID mobile vaccine clinics are held outdoors and may be canceled in rainy or stormy conditions. To learn more about pediatric vaccinations (ages 5-11), we invite you to visit the [facility] webpage. https://www.akronchildrens.org/pages/3963-Gfzlx-Hhnbzszlsxd-Nuqwdtdtph-Wzqpv-Dth stions.htmlTo learn more about the COVID-19 vaccine, we invite you to visit the [facility] website for a list of frequently asked questions. https://east saint louisProNAi Therapeutics/assets/Cbdnausc-dac-Glcdomwp/kvgjr-Tywninb-Ucquzwxxeh _Asked-Questions.pdf [facility] Patient Portal Access Instructions: Stay connected with your healthcare team and access your personal medical information anytime with the [facility] Patient Portal.If you would like a full copy of your medical records, please contact the [facility] Medical Records Department, Wednesday through Wednesday between 8a.m. and 4:30p.m. Please follow the directions below to access the portal: 1.Access the email account you provided upon [facility].2.Look for an invitation email from [facility].3.Open the email and access the invitation link: Accept Invitation to [facility]4.Fill in the required alejandro to create your account. Sign into www.jerrellBlue Jeans Network with your username and password that you [...] you will allow to register on the [facility] Patient Portal for access to your information. You can also access the [facility] Patient Portal on the [employer] angelica. Simply click on Health Records under [employer] and then click on the [facility] logo. [...] Call your local pharmacy or go to http://bit.Sendmebox/7F4Ek9b to find one close to you.3.Make use of household items: Use cat litter or old coffee grounds to dispose medications if other options arenot available. Mix your drugs with these household products, seal them in an airtight container andthrow it into the garbage. Call [facility]: [phone] to be sure your drugs can be [...] aware that I should contact my doctor. Patient/Stitch Marker Signature: Date/Time: Relationship to Patient: Witness Name/Signature: Date/Time: [id number] Discharge summary Date of Service 12/06/21 Discharge Diagnosis 1. Unsteady gait (R26.81 - ICD-10-CM) 2. Dizziness (R42 - ICD-10-CM) Dizziness ([id number] - PNED) HTN - Hypertension ([id number] - PNED) Additional Orders: Ordered: atenolol 25 mg oral tablet,Dose : 25 mg = 1 tab(s), Oral, qDay, # 30 tab(s), 0 Refill(s), Pharmacy: [facility]/pharmacy #[id number], 160, cm, 12/03/21 21:46:00 [...] CT head, chest x-ray, MRI brain, TTE, Tyler- Hallpike unremarkable.ECG showed LBBB, no prior EKG [...] 100 mg daily, hydralazine 25 mg daily, mnbebwzrlpfpytqssiu27 mg daily, lisinopril 20 mg daily. In [...] to schedule a follow up appointment Where: [address] [place] [address] [phone] Follow Up Appointments No qualifying data available. Follow Up Labs/Studies Discharge Labs No Follow-up Labs Discharge Studies No Follow-up Studies Discharge Diet No qualifying data available. Discharge Activity No qualifying data available. Readmission Risk/Palliative Score No qualifying data available. Digitally Signed by CODY RILEY MD on 12/06/2021 11:43 AM [id number] Discharge summary Date of Service 12/06/21 Discharge Diagnosis 1. Unsteady gait (R26.81 - ICD-10-CM) 2. Dizziness (R42 - ICD-10-CM) Dizziness ([id number] - PNED) HTN - Hypertension ([id number] - PNED) Additional Orders: Ordered: atenolol 25 mg oral tablet,Dose : 25 mg = 1 tab(s), Oral, qDay, # 30 tab(s), 0 Refill(s), Pharmacy: [facility]/pharmacy #[id number], 160, cm, 12/03/21 21:46:00 EDT, Height Ordered: [...] CT head, chest x-ray, MRI brain, TTE, Tyler- Hallpike unremarkable.ECG showed LBBB, no prior EKG [...] 100 mg daily, hydralazine 25 mg daily, xlflzugashxprusyaan05 mg daily, lisinopril 20 mg daily. In [...] to schedule a follow up appointment Where: [address] [place] [address]- Follow Up Appointments No qualifying data available. Follow Up Labs/Studies Discharge Labs No Follow-up Labs Discharge Studies No Follow-up Studies Discharge Diet No qualifying data available. Discharge Activity No qualifying data available. Readmission Risk/Palliative Score No qualifying data available. Digitally Signed by CODY RILEY MD on 12/06/2021 11:43 AM [id number] Note Chief Complaint Transition plan Transitional Action Points Currently is transition over to [facility] in [place] is able to accept Patient echo explained [...] are recommending SNF. She was excepted by [facility] in [place], will require COVID screen prior to transfer. [...] Rate18(DEC 06 03:45)18(DEC 05 14:26)20(DEC 05 08:09) KOH215(DEC 06 03:45)104(DEC 05 14:26)H 160(DEC 05 18:48) DBPL 53(DEC 06 03:45)L 53(DEC 05 18:48)70(DEC 05 23:53) Problem List/ Past Medical History Breast cancer Hypertension Medicare annual wellness visit, subsequent Memory impairment Mixed hyperlipidemia Osteoarthritis Postmenopausal state Right arm pain Vulvar lesion Leukoplakia of vulva Procedure/ Surgical History Lumpectomy of left breast Material Attendant Tubal ligation Medication List Active Medications Ordered [...] presence of Magdalena Ashley. I Magdalena Ashley DESKTOP ANALYST, personally performed the services described in this documentation, as described by Gladys Betancourt LPN in my presence and it is both accurate and complete. This document is transcribed using voice recognition software may contain typographical errors. Digitally Signed by MAGDALENA ASHLEY on 12/06/2021 09:45 AM [id number] Note ORIGINAL EXAMINATION: TWO XRAY VIEWS OF [...] 12/06/2021 12:06:38 AM Ordering Provider: FRIEDA HOLLAND [id number] Note Date of Service 12/05/2021 Subjective 81-year-old [...] roomrequired assistance which is not patient's baseline. Tyler-Hallpike was performed in ED documented asnegative. Patient was transfer from [place] to [facility] for further cardiovascular work-up. Orthostatics performed and [...] Zara no answer, called patient's son Ang [phone] Who states that patient's mental status has [...] FRIEDA HOLLAND MD on 12/05/2021 06:41 PM [facility] [id number] Note ORIGINAL EXAMINATION: TWO XRAY VIEWS OF [...] Sign Date: 12/06/2021 12:06:38 AM Ordering Provider: [facility]10-28-2022 Note ORIGINAL EXAMINATION: MR Brain [...] pathology. 2. Moderate parenchymal volume loss and hgck-sd-vthczpoi chronic microvascular white matter ischemic disease. Interpreted by: Alanna Chin MD Preliminary Report By: Alanna Chin MD Electronically signed By Alanna Chin MD Dictated Date: 12/05/2021 1:36:40 PM Prelim Date: 12/05/2021 1:40:15 PM Sign Date: 12/05/2021 1:40:15 PM Ordering Provider: [facility]10-28-2022 Note ORIGINAL EXAMINATION: MR Brain with [...] pathology. 2. Moderate parenchymal volume loss and dqfg-ll-xogsnnye chronic microvascular white matter ischemic disease. Interpreted [...] Physical therapy notes on 12/04 recommending SNF. senior web services developer notes on 10/27 patient remains confused.Left message [...] vulva Procedure/surgical history Lumpectomy of left breast Material Attendant Tubal ligation Medication List Active Medications Ordered [...] by MAGDALENA ASHLEY on 12/05/2021 06:42 PM [id number] Note Date of Service 12/04/2021` Chief Complaint [...] roomrequired assistance which is not patient's baseline. Tyler-Hallpike was performed in ED documented asnegative. Patient was transfer from [place] to [facility] for further cardiovascular work-up. Orthostatics performed and negative. On review of telemetry patient with episodes of bradycardia will decre ase atenolol. Patient ordered for MRI TTE and carotid duplex. PT/OT evaluation pending. Patient seen and examined this morning Patient does appear to have advanced dementia She does know that she is in [place] but speaks in a roundabout way about [...] FRIEDA HOLLAND MD on 12/04/2021 03:40 PM [facility] [id number] Note Chief Complaint Transition Plan. Transitional Action [...] Procedure/ Surgical History Lumpectomy of left breast Material Attendant Tubal ligation Medication List Active Medications Ordered [...] presence of Magdalena Ashley. I Magdalena Ashley DESKTOP ANALYST, personally performed the services described in this documentation, as described by Danielle CARCAMO in my presence and it is both accurate and complete. This document transcribed using voice recognition software may contain typographical errors. Digitally Signed by MAGDALENA ASHLEY on 12/04/2021 02:59 PM [facility] HospitalGxsyjigs56-02-2402 History and physical note [facility] Hospitalist History and Physical Date of Admission: 12/03/2021 Chief complaint: Dizziness History of present illness: History is taken from talking with the patient. Patient was accepted asa transfer from [place] emergency department by my colleague. Patient has [...] Postmenopausal state Right arm pain Vulvar lesion Material Attendant Tubal ligation Family history: Mother: High blood [...] Rate18(DEC 03 21:30)16(DEC 03 14:53)20(DEC 03 14:26) TGH294(DEC 03 21:30)136(DEC 03 21:30)H 187(DEC 03 16:20) [...] Appearance (POC): Clear (12/03/21 16:12:00) Urine Specific [place] (POC): <=1.005 Abnormal (12/03/21 16:12:00) Urine Glucose [...] Patient was accepted as a transfer from [facility] emergency department by my colleague on [...] ANA WILSON MD on 12/03/2021 09:55 PM [facility] [id number] Note ORIGINAL EXAMINATION: CT OF THE HEAD [...] Sign Date: 12/03/2021 4:02:30 PM Ordering Provider: [facility]10-26-2022 Note ORIGINAL EXAMINATION: CT OF THE [...] Sign Date: 12/03/2021 4:02:30 PM Ordering Provider: [facility]10-26-2022 Evaluation + Plan noteExtracted from: Title:Clinical Document Author:ANA WILSON MD Date:12/03/21 [facility] Hospitalist History and Physical Date of Admission: 12/03/2021 Chief complaint: Dizziness History of present illness: History is taken from talking with the patient. Patient was accepted as a transfer from [place] emergency department by my colleague. Patient has [...] Postmenopausal state Right arm pain Vulvar lesion Material Attendant Tubal ligation Family history: Mother: High blood [...] Rate18(DEC 03 21:30)16(DEC 03 14:53)20(DEC 03 14:26) GKW745(DEC 03 21:30)136(DEC 03 21:30)H 187(DEC 03 16:20) [...] Appearance (POC): Clear (12/03/21 16:12:00) Urine Specific [place] (POC): <=1.005 Abnormal (12/03/21 16:12:00) Urine Glucose [...] Patient was accepted as a transfer from [facility] emergency department by my colleague on [...] MA Mammo Screening Bilateral w/ Fer 12/12/21 [facility] Discharge summary Author Jean Claude Harry [facility] Note Date/Time July 24, 2024 3:52 am [facility] Medical Records Department [address] [place] [address] Emergency Department Summary 07/24/24 MR#: [id number] Acct: [id number] Name: CT DALTON Rep #:[id number] : 1940 83 From: Jean Claude Harry [...] Prior similar symptoms: No Recent Illness/Hospitalization: [facility] Medical History Malignant neoplasm of breast [...] mg PO DAILY 04/20/17 04/27/17 08:00 History sgwddfpwgxwv-Up-teif-minerals 1 ea PO DAILY 04/20/17 U nknown [...] range of motion. 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 Neurologically she is awake and alert. [...] Right hip moderate degenerative changes. Reading [facility] [id number] Right hip and pelvis x-ray, 3 views, [...] obviously lying in bed. Tylenol for pain. [place] as needed for pain also. Print Language: Maltese Disposition Disposition: Home, Self Care What to do if you have Problems For any increased pain, shortness of breath, bleeding, nausea or vomiting, chestpain, or any unexpected problems, contact your Primary Care Provider. Call [facility] ([phone]) or report to the closest Emergency Room. Call 911 if necessary. 07/24/24 1752 <Electronically signed by Jean Claude Harry MD> Cosigner Signature (if applicable): CC: Dr. Jairon Medel MD ~ Signed [facility] Work Phone: Evaluation + Plan note Future Appointments Appointment Date:05/05/2021 09:00:00 AM Scheduled Provider:ALANNA WRIGHT DO Location:[facility] [place] Appointment Type:PC OV [facility] Evaluation + Plan note Future Appointments Appointment Date:11/06/2021 08:30:00 AM Scheduled Provider:ALANNA WRIGHT DO Location:[facility] [place] Appointment Type:PC Wellness Medicare with Labs Future Scheduled Tests Radiology* XR Humerus Minimum 2 Views Right 05/05/21 [facility] Evaluation + Plan note Future Appointments Appointment Date:01/15/2022 02:00:00 PM Scheduled Provider: Location:[facility] Appointment Type:MA Mammogram Screening Bilateral w/ Fer Appointment Date:02/25/2022 10:00:00 AM Scheduled Provider:LARRY THOMAS DO Location:[facility] Appointment Type:PC DESKTOP ANALYST Appointment Date:03/13/2022 10:30:00 AM Scheduled Provider:ALANNA WRIGHT DO Location: [place] Appointment Type:PC OV Future Scheduled Tests Radiology* MA Mammo Screening Bilateral w/ Fer 01/15/22 [facility] Evaluation + Plan note Future Appointments Appointment Date:02/25/2022 10:00:00 AM Scheduled Provider:LARRY THOMAS DO Location:[facility] Appointment Type:PC DESKTOP ANALYST Appointment Date:03/13/2022 10:30:00 AM Scheduled Provider:ALANNA WRIGHT DO Location: [place] Appointment Type:PC OV Future Scheduled Tests Radiology* US Biopsy Breast Left 1st Lesion 01/22/22 [facility] evaluation + Plan note Future Appointments Appointment Date:03/05/2022 10:00:00 AM Scheduled Provider:LARRY THOMAS DO Location:[facility] Appointment Type:PC DESKTOP ANALYST Appointment Date:03/13/2022 10:30:00 AM Scheduled Provider:ALANNA WRIGHT DO Location:[facility] Appointment Type:PC OV Appointment Date:03/23/2022 01:00:00 PM Scheduled Provider: Location:[facility] Appointment Type:US Biopsy Breast Left 1st Lesion Future Scheduled Tests Radiology* US Biopsy Breast Left 1st Lesion 03/23/22 [facility] evaluation + Plan note Future Appointments [...] 1st Lesion 03/23/22 * US Renal 03/09/22 [facility] MYTRNDaluation + Plan note Future Appointments Appointment Date:04/16/2022 04:30:00 PM Scheduled Provider:LARRY THOMAS DO Location:[facility] Appointment Type:PC OV Future Scheduled Tests Laboratory* Hepatic Function Panel 04/13/22 Radiology* US Renal 03/09/22 [facility] evaluation + Plan note Future Appointments Appointment Date:04/15/2022 07:30:00 AM Scheduled Provider: Location:[facility] Appointment Type:US Renal Appointment Date:04/16/2022 04:30:00 PM Scheduled Provider:LARRY THOMAS DO Location:[facility] Appointment Type:PC OV Appointment Date:05/28/2022 10:00:00 AM Scheduled Provider:ANISA GOMEZ MD Location:[facility] Appointment Type:LIYAH DESKTOP ANALYST Future Scheduled Tests Radiology* US Renal 04/15/22 [facility] evaluation + Plan note Future Appointments Appointment Date:04/16/2022 04:30:00 PM Scheduled Provider:LARRY THOMAS DO Location:[facility] Appointment Type:PC OV Appointment Date:05/28/2022 10:00:00 AM Scheduled Provider:ANISA GOMEZ MD Location:[facility] Appointment Type:BS DESKTOP ANALYST [facility] Evaluation + Plan note Future Appointments Appointment [...] BD Bone Density DEXA Axial Skeleton 12/14/22 [facility] Evaluation + Plan note Future Appointments Appointment Date:06/15/2023 10:30:00 AM Scheduled Provider:LARRY THOMAS DO Location:[facility] Appointment Type:PC OV Diagnostic Tests Pending * Methylmalonic Acid, Serum 04/07/23 [facility] Evaluation + Plan note Future Appointments Appointment Date:06/15/2023 10:30:00 AM Scheduled Provider:LARRY THOMAS DO Location:[facility] Appointment Type:PC OV [facility] Evaluation + Plan note Future Appointments Appointment Date:12/15/2023 10:00:00 AM Scheduled Provider:LARRY THOMAS DO Location:[facility] Appointment Type:PC OV [facility] Evaluation + Plan note Future Appointments Appointment Date:12/29/2023 01:30:00 PM Scheduled Provider:LARRY THOMAS DO Location:[facility] Appointment Type:PC OV Diagnostic Tests Pending * Vitamin B12 Level 12/15/23 * Folate Level 12/15/23 Future Scheduled Tests Laboratory* Calcium Level Ionized 12/15/23 * Urine Culture 12/15/23 Radiology* XR Spine Lumbar W/Obliques 4 Views 12/15/23 [facility] Evaluation + Plan note Future Appointments Appointment Date:12/29/2023 01:30:00 PM Scheduled Provider:LARRY THOMAS DO Location:[facility] Appointment Type:PC OV Future Scheduled Tests Laboratory* Calcium Level Ionized 12/15/23 Radiology* XR Chest 2 Views (PA & Lateral) 12/19/23 * XR Spine Lumbar W/Obliques 4 Views 12/15/23 [facility] Evaluation + Plan note Future Appointments Appointment Date:12/29/2023 01:30:00 PM Scheduled Provider:LARRY THOMAS DO Location:[facility] Appointment Type:PC OV Future Scheduled Tests Laboratory* Calcium Level Ionized 12/15/23 [facility] Evaluation + Plan note Future Appointments Appointment Date:02/16/2024 09:30:00 AM Scheduled Provider:LARRY THOMAS DO Location:[facility] Appointment Type:PC OV Future Scheduled Tests Radiology* US Bladder 12/29/23 [facility] Evaluation + Plan note Future Appointments Appointment Date:02/16/2024 09:30:00 AM Scheduled Provider:LARRY THOMAS DO Location:[facility] Appointment Type:PC OV [facility] Evaluation note* Diagnosis Abnormal ultrasound of breast Other (abnormal) findings on radiological examination of breast History of left breast cancer documented in this encounter [facility] noteNo assessment information availableWPremier Health [facility] Work Phone: Hospital course Narrative No data available for this section [facility] Hospital Discharge instructions No data available for this section [facility] Hospital Discharge instructions Additional Instructions She has a superior pubic ramus fracture which is a pelvis fracture. These are not treated with surgery. They generally heal over weeks to months. She can do activity as tolerated. She may walk or be in a wheelchair or obviously lying in bed. Tylenol for pain. [place] as needed for pain also.[facility] Work Phone: Progress note No data available for this section [facility] Reason for referral (narrative)No reason for referral information availableWPremier Health [facility] Work Phone: Chief Complaint Chief Complaint Description [...] Visit Chief Complaint Admit Date ADMISSION EXAM DESKTOP ANALYST February 24, 2024 3 :20pm [facility] February 28, 2024 5:00am ADMISSION EXAM February 29, 2024 1 1:54am [facility] March 27 5:00am LABWORK April 03, 2024 5:00am NEW CONCERN April 03, 2024 2:22pm LABWORK May 01, 2024 5:0 0am Chief Complaint Admit Date ADMISSION EXAM DESKTOP ANALYST February 24, 2024 3 :20pm [facility] LAB [...] 00am Chief Complaint Admit Date ADMISSION EXAM DESKTOP ANALYST February 24, 2024 3 :20pm [facility] LAB [...] 0am Chief Complaint Admit Date ADMISSION EXAM DESKTOP ANALYST February 24, 2024 3 :20pm [facility] [...] and content) DATE CREATED AUTHOR 03/11/2018 [facility] DATE CREATED AUTHOR AUTHOR'S ORGANIZ ATION 06/04/2022 [facility] DATE CREATED AUTHOR AUTHOR'S ORGANIZ ATION 07/09/2023 [facility] ([place]) DATE CREATED AUTHOR AUTHOR'S ORGANIZ ATION 02/24/2024 [facility] DATE CREATED AUTHOR AUTHOR'S ORGANIZ ATION 03/28/2024 [facility] DATE CREATED AUTHOR AUTHOR'S ORGANIZ ATION 11/20/2024 [facility] Care Team (unrecognized sect ion and content) Care Team Personnel Name: ALANNA WRIGHT DO Position: P4 Physician - Primary Care Member Role: Primary Care Physician Address: Address: [address] [place] [address] Name: Venkata Alegria RN Position: ED RN Member Role: ED RN Name: BLANCA ARRIETA DO Position: P4 ED Physician II Member Role: ED Physician Address: Address: [address] [place] [address]- [place] Care Team Related Persons Name: ZARA DALTON Address: [address] [place], [place] [id number] Care Team Personnel Name: ALANNA WRIGHT DO Position: P4 Physician - Primary Care Member Role: Primary Care Physician Address: Address: [address] [place] [address] Name: Danette Busch RN Position: AO RN Member Role: RN Name: INES DENNIS MD Position: ED Physician Member Role: Attending Physician Address: Address: [facility] [address] [place] [address]- [place] Care Team Related Persons Name: ZARA DALTON Address: Home [address] [place], [place] [id number] [place] Care Team Personnel Name: ALANNA WRIGHT DO Position: P4 Physician - Primary Care Member Role: Primary Care Physician Address: Address: [address] [place] [address]- [place] Care Team Related Persons Name: ZARA DALTON Address: Home [address] [place], [place] [phone] [place] Care Team Personnel Name: LARRY THOMAS DO Position: P4 Physician - Primary Care Member Role: Primary Care Physician Address: Address: [address] [place] [address]- [place] Care Team Related Persons Name: ZARA DALTON Address: Home [address] [place], [place] [phone] [place] Care Team Personnel Name: LARRY THOMSA DO Position: P4 Physician - Primary Care Member Role: Primary Care Physician Address: Address: [address] [place] [address]- [place] Care Team Related Persons Name: ZARA DALTON Address: Home [address] [place], [place] [phone] [place] Care Team Personnel Name: LARRY THOMAS DO Position: P4 Physician - Primary Care Member Role: Primary Care Physician Address: Address: [address] [place] [address]- [place] Care Team Related Persons Name: ZARA DALTON Address: Home [address] [place], [place] [phone] [place] Care Team Personnel Name: LARRY THOMAS DO Position: P4 Physician - Primary Care Member Role: Primary Care Physician Address: Address: [address] [place] [address]- [place] Care Team Related Persons Name: ZARA DALTON Address: Home [address] [place], [place] [phone] [place] Care Team Personnel Name: LARRY THOMAS DO Position: P4 Physician - Primary Care Member Role: Primary Care Physician Address: Address: [facility] [place] [address]- Care Team Related Persons Name: ZARA DALTON Address: Home [address] [place], [place] [phone] [place] Source Comments (unrecognize d section and content) In the event this informatio n is protected by the Federal Confidentiality of Alcohol and Drug Abuse Patient Records regulations: The Federal rules restrict any use of the information to criminally investigate or prosecute any alcohol or drug abuse patient.[facility] CenterIn the event this information is protected by the Federal Confidentiality of Alcohol and Drug Abuse Patient Records regulations: The Federal rules restrict any use of the information to criminally investigate or prosecute any alcohol or drug abuse patient.[facility] Care Teams (unrecognized sec tion [...] 2024 End: April 03, 2024 Jane Barth DESKTOP ANALYST, DESKTOP ANALYST-C Attending Provider Active Start: April 03, 2024 [...] 2024 End: April 26, 2024 Jane Barth DESKTOP ANALYST, DESKTOP ANALYST-C Attending Provider Active Start: April 26, 2024 [...] July 24, 2024 End: July 24, 2024 Chamber Magistrate Relationship Specialty Start Date End Date Larry Thomas [place] [address] [place] [address] PCP - General Family Medicine 03/30/22 Lachelle Cervantes MD, [address] [place], [place] [phone] Physician Radiation Oncology 05/11/17 Kesha Davidson, RN Specialty Dust Sampler Oncology 07/28/17 Chamber Magistrate Relationship Specialty Start Date End Date Larry ThomasDO [address] [place] [address] PCP - General Family Medicine 03/30/22 Lachelle Cervantes MD, [address] [place] [address] Physician Radiation Oncology 05/11/17 Kesha Davidson, RN Specialty Dust Sampler Oncology 07/28/17 Team Status: Active Member Role Status Dates Dr. Warner Leos Jr., MD Family Provider Active Dr. Warner Leos Jr., MD Primary Care Provider Active Team Status: Inactive Member Role Status Dates Dr. Warner Leos Jr., MD Primary Care Provider Active Start: February 24, 2024 End: February 24, 2024 Jane Barth DESKTOP ANALYST, DESKTOP ANALYST-C Attending Provider Active Start: February 24, 2024 [...] 2024 End: May 12, 2024 Jane Barth DESKTOP ANALYST, DESKTOP ANALYST-C Attending Provider Active Start: May 12, 2024 End: May 12, 2024 Team Status: Inactive Member Role Status Dates Dr. Jairon Medel MD Primary Care Provider Active Start: May 23, 2024 End: May 23, 2024 Jane Barth DESKTOP ANALYST, DESKTOP ANALYST-C Attending Provider Active Start: May 23, 2024 End: May 23, 2024 Team Status: Active Member Role/Relationship Status Dates Dr. Jairon Medel MD Primary Care Provider Active Team Status: Inactive Member Role/Relationship Status Dates Dr. Warner Leos Jr., MD Primary Care Provider Active Start: April 26, 2024 End: April 26, 2024 Jane Barth DESKTOP ANALYST, DESKTOP ANALYST-C Attending Provider Active Start: April 26, 2024 [...] 2024 End: May 12, 2024 Jane Barth DESKTOP ANALYST, DESKTOP ANALYST-C Attending Provider Active Start: May 12, 2024 [...] 2024 End: May 23, 2024 Jane Barth DESKTOP ANALYST, DESKTOP ANALYST-C Attending Provider Active Start: May 23, 2024 [...] End: May 12, 2024 Jane Barth NP, DESKTOP ANALYST-C Attending Provider Active Start: May 12, 2024 [...] 2024 End: May 23, 2024 Jane Barth DESKTOP ANALYST, DESKTOP ANALYST-C Attending Provider Active Start: May 23, 2024 [...] 2024 End: July 24, 2024 Jane Barth DESKTOP ANALYST, DESKTOP ANALYST-C Attending Provider Active Start: July 24, 2024 [...] Status: Inactive Member Role/Relationship Status Dates Dr. aWrner Leos Jr., MD Primary Care Provider Active [...] 2024 End: July 24, 2024 Jane Barth DESKTOP ANALYST, DESKTOP ANALYST-C Attending Provider Active Start: July 24, 2024 [...] 2024 Dr. Jean Claude Harry MD Emergency [facility] t Physician Active Start: July 24, 2024 End: July 24, 2024 Team Status: Inactive Member Role/Relationship Status Dates Dr. Jairon Medel MD Primary care physician Activ e Start: July 24, 2024 End: July 24, 2024 Jane Barth DESKTOP ANALYST, DESKTOP ANALYST-C Attending physician Active Start: July 24, 2024 [...] BE BASED ON THE PRIMARY CLINICAL RECORDS. [employer] provides no warranty or guarantee of the accuracy or completeness of information in this document.
[2024-11-27 07:18] LABS: AST(SGOT) 16 U/L (<=31); Alanine Aminotransfer ALT/SGPT 7 U/L (<=34); Albumin, Serum 4.1 g/dL (3.4-4.8); Alkaline Phosphatase 64 U/L (35-104); Bilirubin, Direct 0.10 mg/dL (0.00-0.30); Globulin 2.5 g/dL (2.2-4.2)
== END ==
LOC: OLS.WHLCAR 04:15
PROVIDERS: PCP Internal Medicine; Referring Provider Internal Medicine; Visit Provider Internal Medicine
DX: F30.9 Manic episode, unspecified (principal); F02.B11 Dementia in other diseases classified elsewhere, moderate, with agitation; I12.9 Hypertensive chronic kidney disease with stage 1 through stage 4 chronic kidney disease, or unspecified chronic kidney disease; N18.9 Chronic kidney disease, unspecified
CPT/HCPCS: 36415; 80076

== ENCOUNTER → 2024-12-11 | Outpatient (REF) | payer MEDICARE, OTHER, SELFPAY ==
--- OUTSIDE RECORDS SUMMARY | 2024-12-11 04:18 | XMS RPT_ITS | CCD ---
Author Organization 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 Name Role Phone Carla Dye MD Unavailable [phone] PAULA ALANIZ Referring Unavailable PAULA ALANIZ Referring Unavailable ADRIANA , ALANNA Herrera Primary Care Physician MICAHAR DO, DR GAO Primary Care Physician [phone] Billy PARKER MD, Dabrandenung Unavailable [phone] Stuart RN, Kesha Unavailable Unavailable Micahar [...] ROMAR DO, DR GAO Primary Care Unavailable PINSON BEAM DOFFER-FASHION DIRECTOR, ELDA Admitting Unavail able SNEHA PARKER, ESPERANZA Attending Unavailable ROMAR DO, DR GAO Primary Care Unavailable ROMAR DO, DR GAO Attending Unavailable ROMAR DO, DR GAO Primary Care Unavailable ROMAR DO, DR GAO Attending Unavailable ROMAR DO, DR GAO Primary Care Unavailable ROMAR DO, DR GAO Primary Care Unavailable ROMAR DO, DR GAO Attending Unavailable Deric PARKER, Dr. Hylton Primary Care Provider Lary VICE PRESIDENT RESEARCH-C, Jane Attending Provider Jairon Medel MD Attending Provider Unavailsteffany Medel MD, Dr. De La O Attending Provider Jairon Medel MD Referring Provider UnavailDr. Warner Norton MD Primary Care Provider Jairon Medel MD Attending Provider Unavailsteffany Barth VICE PRESIDENT RESEARCH-C, Jane Attending Provider Gianfranco PARKER, Dr. De La O Attending Provider Dr. Jairon Medel MD Primary Care Provider Dr. Jean Claude Harry MD Emergency Provider [phone] Deric PARKER, Dr. Hylton Primary Care Provider Jairon Medel MD Attending Provider UnavailDr. Jairon Morris MD Primary Care Provider Dr. Warner Leos MD Primary Care Provider Lary VICE PRESIDENT RESEARCH-C, Jane Attending Provider Jairon Medel MD Attending Provider Unavailsteffany Medel MD, Dr. De La O Attending Provider Piero PARKER, Dr. Silverio Attending Provider [phone] Deric PARKER, Dr. Hylton Primary Care Provider Lary VICE PRESIDENT RESEARCH-C, Jane Attending Provider Deric PARKER, Dr. Hylton Primary Care Provider Gianfranco PARKER, Jairon Attending Provider Unavaila katerina Medel MD, Jairon Referring Provider Unavailsteffany Medel MD, Dr. De La O Primary Care Provider Lary VICE PRESIDENT RESEARCH-C, Jane Attending Provider Sameer PARKER, Dr. Dumont Attending Provider Gianfranco PARKER, Dr. De La O Primary Care Physician Piero PARKER, Dr. Silverio Attending Physician Piero PARKER, Dr. Silverio Emergency Department Physici an Lary VICE PRESIDENT RESEARCH-C, Jane Attending Physician Sameer PARKER, Dr. Dumont Attending Physician Gianfranco PARKER, Dr. De La O Attending Physician Jairon Medel MD Attending Physician Unavail able Oleghe, Efewongbe Primary Care Unavailable Jane Barth Attending Unavailable Oleghe Jairon TREVIÑO Attending Char Leos Jr., Warner Primary Care Unavailable Oleghe OLS, Efewongbe Referring Unavailabl e Oleghe, Efewongbe Primary Care Unavailable Oleghe OLS, Jairon Attending Unavailabl e Oleghe, Efewongbe Primary Care Unavailable Oleghe OLS, Jairon Attending Unavailabl e Oleghe OLS Efmeghanbe Referring Unavailabl e Oleghe, Efewongbe Primary Care Unavailable Jean Claude Harry Attending Unavailable Oleghe KAMILA, Jairon Attending Unavailthea Leos Jr., Warner Primary Care Unavailable Oleghe OLS, Efewongbe Referring Unavailabl e Oleghe Jairon TREVIÑO Attending Unavailthea Leos Jr., Warner Primary Care [...] Jr., Warner Primary Care Unavailable Oleghe, Efewongbe Attending Unavailable Oleghe, Efewongbe Primary Care Unavailable Jane Barth Attending Unavailable Deric Rodriguez, Warner Primary Care Unavailable Oleghe, Efewongbe Attending Unavailable Deric Rodriguez, Warner Primary Care Unavailable Oleghe, Efewongbe Primary Care Unavailable Jane Barth Attending Unavailable Oleghe, Efewongbe Primary Care Unavailable Jaen Barth Attending Unavailable Oleghe, Efewongbe Attending Unavailable Oleghe, Efewongbe Primary Care Unavailable Oleghe, Efewongbe Attending Unavailable Deric Rodriguez, Warner Primary Care Unavailable Jane Barth Attending Unavailable Deric Rodriguez, Warner Primary Care Unavailable Jane Barth Attending Unavailable Deric Rodriguez, Warner Primary Care Unavailable Allergies Allergy Classification Reported Allergen(s) Allergy Type Date of Onset Reaction(s) Facility (1 source) Sulfacetamide Drug Allergy 4 rash [facility] Work Phone: (10 sources) Sulfonamides (Antibiotic); Translations: [SULFA (SULFONAMIDE ANTIBIOTICS)] Propensity to adverse reactions to drug (disorder) 8 Intolerance [facility] [place] Other [place] Repository Medications Current Medications Medication Drug Class(es) [...] taking., # 12 tab(s), 1 Refill(s), Pharmacy: [facility]/pharmacy #[id number], 155, cm, 12/15/23 10:32:00 EST, Height, [...] taking., # 12 tab(s), 1 Refill(s), Pharmacy: [facility]/pharmacy #[id number], 153.5, cm, 06/15/23 10:26:00 EDT, Height, kg, 06/15/23 10:26:00 EDT, Dosing Weight Start Date: 06/15/23 Stop Date: 11/30/23 Status: Ordered anastrozole 1 mg oral tablet (20 sources) Aromatase Inhibitor Start: 09-28-2023 take 1 tablet by mouth once daily in the evening anastrozole 1 mg oral tablet 1 tab(s), Oral, qPM, # 90 tab(s), 0 Refill(s), Pharmacy: [facility]/pharmacy #[id number], 153.5, cm, 06/15/23 10:26:00 EDT, Height, kg, 06/15/23 10:26:00 EDT, Dosing Weight Start Date: 09/28/23 Status: Ordered Start: 02-06-2024 take 1 tablet by charles th once daily in the evening anastrozole 1 mg oral tablet 1 tab(s), Oral, qPM, # 90 tab(s), 1 Refill(s), [id number] 155.2, cm, 03/16/23 9:59:00 EST, Height, kg, 03/16/23 9:59:00 EST, Dosing Weight Start Date: 03/16/23 Status: Ordered Start: 09-30-2022 take 1 tablet by charles th once daily in the evening anastrozole 1 mg oral tablet 1 tab(s), Oral, qPM, # 90 tab(s), 1 Refill(s), [id number] 156.5, cm, 09/11/22 11:11:00 EDT, Height, kg, 09/11/22 11:11:00 EDT, Dosing Weight Start Date: 09/30/22 Status: Ordered Start: 11-21-2021 take 1 tablet by charles th once daily in the evening anastrozole 1 mg oral tablet 1 tab(s), Oral, qPM, # 90 tab(s), 1 Refill(s), Pharmacy: [facility] STORE [id number], 154.5, cm, 11/18/21 13:32:00 EDT, Height, kg, 11/18/21 13:32:00 EDT, Dosing Weight Start Date: 11/21/21 Status: Ordered Start: 03-20-2020 End: 04-05-2021 take 1 tablet by mouth once daily anastrozole 1 mg oral tablet 1 tab(s), Oral, qDay, # 90 tab(s), 1 Refill(s), Pharmacy: [facility] STORE [id number], 155, cm, 11/04/20 8:28:00 EDT, Height, kg, 11/11/20 8:26:00 EDT, Dosing Weight Start Date: 04/17/21 Status: Ordered Start: 01-12-2018 ARIMIDEX 1 MG TABS 1 tablet daily ANASTROZOLE [id number] Vidya Babin [employer] Comment on above: TAKE 1 TABLET BY CHARLES TH EVERY DAY aspirin 81 mg delayed release oral tablet (20 sources) Platelet Aggregation Inhibitor, Nonsteroidal Anti-inflammatory Drug Start: 10-05-2023 End: 04-02-2024 aspirin 81 mg oral delayed release tablet Dose : 81 mg = 1 tab(s), Oral, qAM, do not crush or chew, # 90 tab(s), 1 Refill(s), Pharmacy: [facility]/pharmacy #[id number], 153.5, cm, 06/15/23 10:26:00 EDT, Height, kg, 06/15/23 10:26:00 EDT, Dosing Weight Start Date: 10/05/23 Stop Date: 04/02/24 Status: Ordered Start: 03-05-2022 End: 05-20-2023 aspirin 81 mg oral delayed r elease tablet Dose : 81 mg = 1 tab(s), Oral, qAM, do not crush or chew, # 90 tab(s), 3 Refill(s), Pharmacy: [facility]/pharmacy #[id number], 154.3, cm, 04/16/22 16:12:00 EST, Height, [...] qPM, # 100 tab(s), 1 Refill(s), Pharmacy: [facility]/pharmacy #[id number], 155, cm, 12/15/23 10:32:00 EST, Height, kg, 12/15/23 10:26:00 EST, Dosing Weight Start Date: 12/15/23 Stop Date: 07/02/24 Status: Ordered Quantity: 100.0 Unit: tab(s) Repeat number: 2 Start: 09-13-2023 End: 12-12-2023 atorvastatin 20 mg oral tabl et Dose : 20 mg = 1 tab(s), Oral, qPM, # 90 tab(s), 0 Refill(s), [id number], 153.5, cm, 06/15/23 10:26:00 EDT, Height, kg, 06/15/23 10:26:00 EDT, Dosing Weight Start Date: 09/13/23 Stop Date: 12/12/23 Status: Ordered Start: 01-29-2023 End: 07-28-2023 atorvastatin 20 mg oral tabl et Dose : 20 mg = 1 tab(s), Oral, qPM, # 90 tab(s), 1 Refill(s), [id number], 156.5, cm, 09/11/22 11:11:00 EDT, Height, kg, 09/11/22 11:11:00 EDT, Dosing Weight Start Date: 01/29/23 Stop Date: 07/28/23 Status: Ordered Start: 03-09-2022 End: 11-21-2022 atorvastatin 20 mg oral tabl et Dose : 20 mg = 1 tab(s), Oral, qPM, # 90 tab(s), 1 Refill(s), [id number], 154.3, cm, 04/16/22 16:12:00 EST, Height, kg, 04/16/22 16:12:00 EST, Dosing Weight Start Date: 05/25/22 Stop Date: 11/21/22 Status: Ordered Start: 08-22-2021 take 0.5 tablet by m outh once daily atorvastatin 20 mg oral tablet 0.5 tab(s), Oral, qDay, # 45 tab(s), 1 Refill(s), Pharmacy: [facility] [id number], 155, cm, 05/05/21 8:51:00 EDT, Height, kg, 05/05/21 8:51:00 EDT, Dosing Weight Start Date: 08/22/21 Status: Ordered Start: 11-06-2020 take 0.5 tablet by m outh once daily atorvastatin 20 mg oral tablet See Instructions, TAKE 1/2 TABLET EVERY DAY, # 45 tab(s), 1 Refill(s), [id number], 155, cm, 11/04/20 8:28:00 EDT, Height, kg, 11/04/20 8:28:00 EDT, Dosing Weight Start Date: 11/06/20 Status: Ordered Start: 04-20-2017 take 2 tablets by [facility] at bedtime Start: 10-27-2013 take 1 tablet by [facility] at bedtime Atorvastatin 10 MG tablet [...] qAM, # 90 cap(s), 0 Refill(s), Pharmacy: [facility]/pharmacy #4605, 156.2, cm, 07/01/22 6:28:00 EDT, Height, kg, 07/01/22 6:28:00 EDT, Dosing Weight Start Date: 08/10/22 Status: Ordered Start: 12-07-2016 take 1 capsule by [facility] once daily in the morning celecoxib 100 mg oral capsule 1 cap(s), Oral, qAM, # 90 cap(s), 1 Refill(s), Pharmacy: [facility] STORE 05825, 154.3, cm, 04/16/22 16:12:00 EST, Height, kg, 04/16/22 16:12:00 EST, Dosing Weight Start Date: 05/21/22 Status: Ordered Start: 10-27-2013 CELEBREX 100 M G CAPS 1-2 capsules weekly as needed CELECOXIB [id number] Vidya Babin LPN Comment on above: Take 100 mg by mouth once daily. ciclopirox 80 mg/ml topical solution (6 sources) Start: 03-05-2022 End: 01-06-2024 ciclopirox 8% topical solution Apply 1 angelica, Topical, Daily, apply to affected toenails and surrounding area once daily, remove with alcohol every 7 days prior to reapplication, Apply to: toenails, X 48 week(s), # 6.6 mL, 1 Refill(s), [id number] 154.3, cm, 03/05/22 9:44:00 EST, Height, 75.6 Start Date: 03/05/22 Stop Date: 01/06/24 Status: Ordered Clobetasol (3 sources) Corticosteroid Start: 01-20-2021 clobetasol 0.05% topical ointment See Instructions, APPLY TO AFFECTED AREA TWICE A DAY, # 15 gram(s), 1 Refill(s), Pharmacy: [facility] STORE [id number], 155, cm, 11/04/20 8:28:00 EDT, Height, 81.2, kg, 11/11/20 8:26:00 EDT, Dosing Weight Start Date: 01/20/21 Status: Ordered Start: 07-30-2020 Temovate 0.05% topical ointment Apply 1 angelica, Topical, BID, # 15 gram(s), 0 Refill(s), [id number], Ointment, 155, cm, 07/23/20 8:15:00 EDT, [...] qHS, # 90 tab(s), 1 Refill(s), [facility], 156.5, cm, 09/11/22 11:11:00 EDT, Height, [...] qHS, # 90 tab(s), 1 Refill(s), Pharmacy: [facility] STORE [address]08, 155, cm, 11/04/20 8:28:00 EDT, Height, kg, [...] discomfort, # 39 tab(s), 0 Refill(s), Pharmacy: [facility]/pharmacy #4605, 155, cm, 12/15/23 10:32:00 EST, Height, [...] TID, # 5 gram(s), 0 Refill(s), [facility], Cream, 155, cm, 07/23/20 8:15:00 EDT, Height, 85.2, kg, 07/23/20 8:15:00 EDT, Dosing Weight Start Date: 07/23/20 Status: Ordered lisinopril 20 mg oral tablet (14 sources) Angiotensin Converting Enzyme Inhibitor Start: 03-16-2023 take 1 tablet by mouth once daily in the morning lisinopril 20 mg oral tablet 1 tab(s), Oral, qAM, # 90 tab(s), 1 Refill(s), [facility] 155.2, cm, 03/16/23 9:59:00 EST, Height, kg, 03/16/23 9:59:00 EST, Dosing Weight Start Date: 03/16/23 Status: Ordered Start: 10-15-2022 take 1 tablet by charles th once daily in the morning lisinopril 20 mg oral tablet 1 tab(s), Oral, qAM, # 90 tab(s), 1 Refill(s), [id number], 156.5, cm, 09/11/22 11:11:00 EDT, Height, kg, 09/11/22 11:11:00 EDT, Dosing Weight Start Date: 10/15/22 Status: Ordered Start: 04-13-2022 take 1 tablet by charles th once daily in the morning lisinopril 20 mg oral tablet 1 tab(s), Oral, qAM, # 90 tab(s), 1 Refill(s), [id number], 154.3, cm, 03/17/22 9:37:00 EST, Height, kg, 03/17/22 9:37:00 EST, Dosing Weight Start Date: 04/13/22 Status: Ordered Start: 09-02-2021 take 1 tablet by charles th once daily lisinopril 20 mg oral tablet 1 tab(s), Oral, qDay, # 90 tab(s), 1 Refill(s), Pharmacy: [facility], 155, cm, 05/05/21 8:51:00 EDT, Height, kg, 05/05/21 8:51:00 EDT, Dosing Weight Start Date: 09/02/21 Status: Ordered Start: 10-22-2020 take 1 tablet by charles th once daily lisinopril 20 mg oral tablet See Instructions, TAKE 1 TABLET BY MOUTH EVERY DAY, # 90 tab(s), 1 Refill(s), Pharmacy: [facility] STORE [facility]23, 155, cm, 07/23/20 8:15:00 EDT, Height, kg, 07/30/20 8:40:00 EDT, Dosing Weight Start Date: 10/22/20 Status: Ordered losartan potassium 50 mg oral tablet (20 sources) Angiotensin 2 Receptor Aniyah Start: 10-27-2013 End: 07-02-2024 take 1 tablet by mouth once daily 24 hr memantine hydrochloride 28 mg extended release oral capsule (20 sources) W-edlxbf-N-aspartate Receptor Antagonist Start: 07-24-2024 take 1 capsule [...] qAM, # 90 tab(s), 1 Refill(s), Pharmacy: [facility]/pharmacy #4605, 156.5, cm, 09/11/22 11:11:00 EDT, Height, kg, 09/11/22 11:11:00 EDT, Dosing Weight Start Date: 01/29/23 Status: Ordered Start: 05-25-2022 take 1 tablet by charles th once daily in the morning memantine 5 mg oral tablet 1 tab(s), Oral, qAM, # 90 tab(s), 1 Refill(s), Pharmacy: [facility]/pharmacy #4605, 154.3, cm, 04/16/22 16:12:00 EST, Height, kg, 04/16/22 16:12:00 EST, Dosing Weight Start Date: 05/25/22 Status: Ordered Start: 07-14-2021 take 1 tablet by charles th once daily memantine 5 mg oral tablet 1 tab(s), Oral, qDay, # 90 tab(s), 1 Refill(s), Pharmacy: [facility] [id number], 155, cm, 05/05/21 8:51:00 EDT, Height, kg, 05/05/21 8:51:00 EDT, Dosing Weight Start Date: 07/14/21 Status: Ordered Start: 04-15-2021 take 1 tablet by charles th once daily memantine 5 mg oral tablet 1 tab(s), Oral, qDay, # 90 tab(s), 0 Refill(s), Pharmacy: [facility] STORE [id number], 155, cm, 11/04/20 8:28:00 EDT, Height, kg, 11/11/20 8:26:00 EDT, Dosing Weight Start Date: 04/15/21 Status: Ordered Start: 10-17-2020 take 1 tablet by charles th once daily memantine 5 mg oral tablet See Instructions, TAKE 1 TABLET BY MOUTH EVERY DAY, # 90 tab(s), 0 Refill(s), Pharmacy: [facility]ORE [id number], 155, cm, 07/23/20 8:15:00 EDT, Height, kg, [...] 0 Refill(s) Start Date: 03/17/22 Status: Ordered Klrtwwshvcdq-Iv-Msyr-Mineral s (Multiple Vitamins For Women) 1 EACH tablet (12 sources) Start: 04-20-2017 take 1 tablet by mouth once daily Start: 04-20-2017 take 1 tablet by charles th once daily Xiznafvnldco-Gk-Pwxb-Minerals (Multiple Vitamins For Women) 1 EACH tablet Active 1 NMA PO DAILY April 20, 2017 12:00am mupirocin 0.02 mg/mg topical ointment (2 sources) RNA Synthetase Inhibitor Antibacterial Start: 06-19-2022 mupirocin 2% top ical ointment Apply 1 angelica, Topical, BID, Bilateral intranasal application twice daily x 5 days pre-surgery., Apply to: nostril, each, # 22 gram(s), 0 Refill(s), Pharmacy: [facility]/pharmacy #[id number], Ointment, 154.3, cm, 05/28/22 7:35:00 EDT, Height, 77 Start Date: 06/19/22 Status: Ordered nystatin [id number] unt/ml topical cream (8 sources) Polyene Antifungal Start: 07-24-2024 Start: 09-11-2022 End: 11-10-2022 nystatin 100,000 units/g top ical cream Apply 1 angelica, Topical, BID, PRN Rash, Apply to the affected area twice daily until healing complete., # 30 gram(s), 1 Refill(s), Pharmacy: [facility]/pharmacy #4605, Cream, 156.5, cm, 09/11/22 11:11:00 EDT, [...] Date: 01/24/24 Status: Ordered polyethylene glycol 3350 77069 mg powder for oral solution (8 sources) [...] day(s), # 6 tab(s), 0 Refill(s), Pharmacy: [facility]/pharmacy #4605, 155, cm, 12/15/23 10:32:00 EST, Height, [...] Completed Start: 02-26-2017 take 2 tablets by [facility] once daily atenolol (TENORMIN) 50 mg tablet [...] TABS 1 tablet daily CALCIUM CARB-CHOLECALCIFEROL TABS [id number] Vidya Babin [employer] calcium carbonate 1500 mg oral tablet (12 sources) Start: End: calcium (as carbonate) 600 mg oral tablet Dose : 600 mg = 1 tab(s), Oral, qDay, # 90 tab(s), 3 Refill(s), Pharmacy: [facility]/pharmacy #4605, 156.5, cm, 09/11/22 11:11:00 EDT, Height, [...] Comment on above: Take 3 tablets by [facility] once daily. cyclobenzaprine hydrochloride 10 mg oral tablet (17 sources) Muscle Relaxant Start: 014 End: take [...] oral capsule (17 sources) Anti-epileptic Agent Start: 017 End: take [...] qAM, # 90 tab(s), 1 Refill(s), Pharmacy: [facility] STORE 55917, 154.5, cm, 11/18/21 13:32:00 EDT, Height, kg, 11/18/21 13:32:00 EDT, Dosing Weight Start Date: 11/21/21 Status: Ordered Comment on above: Take 25 mg by mouth once daily. hydroCHLOROthiazide 25 mg oral tablet (17 sources) Thiazide Diuretic Start: 016 End: 025 take 1 tablet by mouth once daily Hydrochlorothiazide 25 MG tablet Discontinued 25 mg PO DAILY April 20, 2017 12:00am July 24, 2024 1:38am Comment on above: Take 25 mg by mouth once daily. 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 Other nervous system disorders (1 source) [...] diseases classified elsewhere, moderate, with agitation] Onset: 12-07-2024 Unclassified (2 sources) Dementia in other diseases classified elsewhere, unspecified severity, with agitation; Translations: [Dementia in other diseases classified elsewhere, unspecified severity, with agitation] Onset: 2024 Urinary tract infections (2 sources) Urinary tract [...] Auto (Unsp spec) [#/Vol] 2.13 10*3/uL 0.83-4.51 [facility] Absolute neutrophil countOrd ered By: Jairon Medel on 10-16-2024 Neutrophils (Bld) [#/Vol] 4.1 10*3/uL 2.0-7.7 [facility] Anion gap in Serum or Plasma Ordered By: Jairon Medel on 10-16-2024 Anion gap [Moles/Vol] 13 mmol/L 5-15 [facility] Automated lymphocyte count a s percentage of total leukocytesOrdered By: Jairon Medel on 10-16-2024 Lymphocytes/100 WBC Auto (Unsp spec) 29.5 % 19-41 [facility] BUN/creatinine ratioOrdered By: sreekanthkykotsmovi villagemakenzie Medel on 10-16-2024 Urea nitrogen/Creatinine [Mass ratio] 22.8 mg/mg High 10-20 [facility] Basophil percentageOrdered B y: Jairon Medel on 10-16-2024 Basophils/100 WBC (Bld) 0.8 % 0-1 [facility] Carbon dioxide, total [Moles /volume] in Central venous bloodOrdered By: Jairon Medel on 10-16-2024 CO2 [Moles/Vol] 22.8 mmol/L 21.0-32.0 [facility] Chloride assayOrdered By: margarette Medel on 10-16-2024 Chloride [Moles/Vol] 104 mmol/L 98-108 [facility] Eosinophil percentageOrdered By: Jairon Medel on 10-16-2024 Eosinophils/100 WBC (Bld) 3.2 % 0-5 [facility] Erythrocyte distribution wid th ratioOrdered By: Jairon Medel on 10-16-2024 Erythrocyte distribution width (RBC) [Ratio] 13.2 % 11.6-14.6 [facility] Erythrocyte distribution wid th standard deviationOrdered By: Jairon Medel on 10-16-2024 Erythrocyte distribution width (RBC) [Ratio] 44.1 fl High 35.1-43.9 [facility] Glomerular filtration rate ( GFR) estimation/1.73 sq m using serum, plasma, or whole bOrdered By: Jairon Medel on 10-16-2024 GFR/1.73 sq M.predicted among non-blacks MDRD (S/P/Bld) [Vol rate/Area] 51 mL/min/{1.73_m2} Low >60 [facility] Comment on above: mL/min/1.73m2 CKD-EP I Creatinine Equation (2020) Hematocrit Auto (Bld) [Volum e fraction]Ordered By: Jairon Medel on 10-16-2024 Hematocrit (Bld) [Volume fraction] 32.8 % Low 37-47 [facility] Hemoglobin measurementOrdere d By: Jairon Medel on 10-16-2024 Hemoglobin (Bld) [Mass/Vol] 10.0 g/dL Low 12.0-15.0 [facility] Immature granulocytes/100 WB C Auto (Bld)Ordered By: Jairon Medel on 10-16-2024 Immature granulocytes/100 WBC (Bld) 0.300 % 0.0-0.9 [facility] Comment on above: IG% - Immature Granu locytes (promyelocytes, myelocytes and metamyelocytes) > 1% indicates that a LEFT SHIFT is Present. MCV (mean corpuscular volume ) determinationOrdered By: Jairon Medel on 10-16-2024 MCV (RBC) [Entitic vol] 91.4 fL 81-99 [facility] Mean corpuscular hemoglobin (MCH) determinationOrdered By: Jairon Medel 10-16-2024 MCH (RBC) [Entitic mass] 27.9 pg 27.0-32.0 [facility] Mean corpuscular hemoglobin concentration (MCHC) determinationOrdered By: margarette Medel 10-16-2024 MCHC (RBC) [Mass/Vol] 30.5 g/dL Low 32-36 [facility] Mean platelet volume determi nationOrdered By: Jairon Medel on 10-16-2024 Platelet mean volume (Bld) [Entitic vol] 10.6 fL 6.2-12.0 [facility] Monocyte percentageOrdered B y: Jairon Medel on 10-16-2024 Monocytes/100 WBC (Bld) 9.4 % 0-10 [facility] Neutrophil percentageOrdered By: Jairon Medel on 10-16-2024 Neutrophils/100 WBC (Bld) 56.8 % 47-70 [facility] Nucleated red blood cell per centageOrdered By: Jairon Medel on 10-16-2024 Nucleated RBC/100 WBC (Bld) [Ratio] 0 % 0-5 [facility] Platelet countOrdered By: Pooja sreekanthbraden Medel on 10-16-2024 Platelets (Bld) [#/Vol] 273 10*3/uL 150-450 [facility] Potassium measurement (mass/ volume)Ordered By: Jairon Medel on 10-16-2024 Potassium (Unsp spec) [Mass/Vol] 4.2 mmol/L 3.3-5.1 [facility] RBC Auto (Bld) [#/Vol]Ordere d By: Jairon Medel on 10-16-2024 RBC (Bld) [#/Vol] 3.59 10*6/uL Low 4.2-5.4 [facility] Serum creatinine measurement (mass/volume)Ordered By: Jairon Medel on 10-16-2024 Creatinine [Mass/Vol] 1.07 mg/dL 0.70-1.20 [facility] Serum glucose measurement (m ass/volume)Ordered By: Jairon Medel on 10-16-2024 Glucose [Mass/Vol] 76 mg/dL 70-99 [facility] Serum or plasma calcium krissy urement (mass/volume)Ordered By: Jairon Medel on 10-16-2024 Calcium [Mass/Vol] 9.7 mg/dL 7.6-11.0 [facility] Serum or plasma urea nitroge n measurement (mass/volume)Ordered By: Jairon Medel on 10-16-2024 Urea nitrogen [Mass/Vol] 24 mg/dL High 4-19 [facility] Sodium levelOrdered By: Carrillo Medel on 10-16-2024 Sodium [Moles/Vol] 139 mmol/L 133-145 [facility] White blood cell (WBC) count Ordered By: Jairon Medel on 10-16-2024 WBC (Bld) [#/Vol] 7.2 10*3/uL 4.4-11.0 [facility] Absolute lymphocyte countOrd ered By: Jairon Medel on 09-18-2024 Lymphocytes Auto (Unsp spec) [#/Vol] 1.93 10*3/uL 0.83-4.51 [facility] Absolute neutrophil countOrd ered By: Jairon Medel on 09-18-2024 Neutrophils (Bld) [#/Vol] 3.1 10*3/uL 2.0-7.7 [facility] Anion gap in Serum or Plasma Ordered By: Jairon Medel on 09-18-2024 Anion gap [Moles/Vol] 11 mmol/L 5-15 [facility] Automated lymphocyte count a s percentage of total leukocytesOrdered By: Jairon Medel on 09-18-2024 Lymphocytes/100 WBC Auto (Unsp spec) 34.0 % 19-41 [facility] BUN/creatinine ratioOrdered By: Jairon Medel on 09-18-2024 Urea nitrogen/Creatinine [Mass ratio] 23.1 mg/mg High 10-20 [facility] Basophil percentageOrdered B y: Jairon Medel on 09-18-2024 Basophils/100 WBC (Bld) 0.7 % 0-1 [facility] Carbon dioxide, total [Moles /volume] in Central venous bloodOrdered By: Jairon Cortezjenifersophia on 09-18-2024 CO2 [Moles/Vol] 23.8 mmol/L 21.0-32.0 [facility] Chloride assayOrdered By: Pooja pfeiffer Cortezjenifersophia on 09-18-2024 Chloride [Moles/Vol] 106 mmol/L 98-108 [facility] Eosinophil percentageOrdered By: Jairon Medel on 09-18-2024 Eosinophils/100 WBC (Bld) 2.1 % 0-5 [facility] Erythrocyte distribution wid th ratioOrdered By: Jairon Medel on 09-18-2024 Erythrocyte distribution width (RBC) [Ratio] 13.6 % 11.6-14.6 [facility] Erythrocyte distribution wid th standard deviationOrdered By: Jairon Medel on 09-18-2024 Erythrocyte distribution width (RBC) [Ratio] 45.4 fl High 35.1-43.9 [facility] Glomerular filtration rate ( GFR) estimation/1.73 sq m using serum, plasma, or whole bOrdered By: Jairon Medel on 09-18-2024 GFR/1.73 sq M.predicted among non-blacks MDRD (S/P/Bld) [Vol rate/Area] 59 mL/min/{1.73_m2} Low >60 [facility] Comment on above: mL/min/1.73m2 CKD-EP I Creatinine Equation (2020) Hematocrit Auto (Bld) [Volum e fraction]Ordered By: Jairon Medel on 09-18-2024 Hematocrit (Bld) [Volume fraction] 31.9 % Low 37-47 [facility] Hemoglobin measurementOrdere d By: Jairon Medel on 09-18-2024 Hemoglobin (Bld) [Mass/Vol] 9.9 g/dL Low 12.0-15.0 [facility] Immature granulocytes/100 WB C Auto (Bld)Ordered By: Jairon Medel on 09-18-2024 Immature granulocytes/100 WBC (Bld) 0.400 % 0.0-0.9 [facility] Comment on above: IG% - Immature Granu locytes (promyelocytes, myelocytes and metamyelocytes) > 1% indicates that a LEFT SHIFT is Present. MCV (mean corpuscular volume ) determinationOrdered By: Jairon Medel on 09-18-2024 MCV (RBC) [Entitic vol] 91.7 fL 81-99 [facility] Mean corpuscular hemoglobin (MCH) determinationOrdered By: Jairon Medle on 09-18-2024 MCH (RBC) [Entitic mass] 28.4 pg 27.0-32.0 [facility] Mean corpuscular hemoglobin concentration (MCHC) determinationOrdered By: Jairon Medel on 09-18-2024 MCHC (RBC) [Mass/Vol] 31.0 g/dL Low 32-36 [facility] Mean platelet volume determi nationOrdered By: Jairon Medel on 09-18-2024 Platelet mean volume (Bld) [Entitic vol] 10.9 fL 6.2-12.0 [facility] Monocyte percentageOrdered B y: Jairon Medel on 09-18-2024 Monocytes/100 WBC (Bld) 7.9 % 0-10 [facility] Neutrophil percentageOrdered By: Jairon Medel on 09-18-2024 Neutrophils/100 WBC (Bld) 54.9 % 47-70 [facility] Nucleated red blood cell per centageOrdered By: Jairon Medel on 09-18-2024 Nucleated RBC/100 WBC (Bld) [Ratio] 0 % 0-5 [facility] Platelet countOrdered By: Pooja Medel on 09-18-2024 Platelets (Bld) [#/Vol] 247 10*3/uL 150-450 [facility] Potassium measurement (mass/ volume)Ordered By: Jairon Medel on 09-18-2024 Potassium (Unsp spec) [Mass/Vol] 4.1 mmol/L 3.3-5.1 [facility] RBC Auto (Bld) [#/Vol]Ordere d By: Jairon Medel on 09-18-2024 RBC (Bld) [#/Vol] 3.48 10*6/uL Low 4.2-5.4 [facility] Serum creatinine measurement (mass/volume)Ordered By: Jairon Medel on 09-18-2024 Creatinine [Mass/Vol] 0.94 mg/dL 0.70-1.20 [facility] Serum glucose measurement (m ass/volume)Ordered By: Jairon Medel on 09-18-2024 Glucose [Mass/Vol] 86 mg/dL 70-99 [facility] Serum or plasma calcium krissy urement (mass/volume)Ordered By: Jairon Medel on 09-18-2024 Calcium [Mass/Vol] 9.9 mg/dL 7.6-11.0 [facility] Serum or plasma urea nitroge n measurement (mass/volume)Ordered By: Jairon Medel on 09-18-2024 Urea nitrogen [Mass/Vol] 22 mg/dL High 4-19 [facility] Sodium levelOrdered By: Carrillo Medel on 09-18-2024 Sodium [Moles/Vol] 141 mmol/L 133-145 [facility] White blood cell (WBC) count Ordered By: Jairon Medle on 09-18-2024 WBC (Bld) [#/Vol] 5.7 10*3/uL 4.4-11.0 [facility] Bilirubin directOrdered By: Jairon Medel on 08-28-2024 Bilirubin.direct [Mass/Vol] 0.12 mg/dL 0.00-0.30 [facility] Bilirubin, totalOrdered By: Jairon Medel on 08-28-2024 Bilirubin [Mass/Vol] 0.23 mg/dL 0.00-1.30 [facility] Calculated very low density lipoprotein (VLDL) cholesterol measurementOrdered By: Jairon Medel on 08-28-2024 Calculated very low density lipoprotein (VLDL) cholesterol measurement 23 mg/dL 5-40 [facility] LDL calc ser/plasOrdered By: Jairon Medel on 08-28-2024 Cholesterol in LDL [Mass/Vol] 46 mg/dL [facility] Comment on above: Kgpsmyqusl=719-439 m g/dL & Higher Xknm=415 mg/dL or greater Laboratory - Chemistry and C hemistry - challengeOrdered By: Jairon Medel on 08-28-2024 AST [Catalytic activity/Vol] 15 U/L <32 [facility] Screening total cholesterol/ high density lipoprotein (HDL) cholesterol ratioOrdered By: Jairon Medel on 08-28-2024 Cholesterol.total/Luisa sterol in HDL [Mass ratio] 2.33 {ratio} [facility] Serum globulin measurementOr dered By: Jairon Medel on 08-28-2024 Globulin (S) [Mass/Vol] 2.2 g/dL 2.2-4.2 [facility] Serum or plasma alanine crane otransferase (ALT) measurementOrdered By: Jairon Medel on 08-28-2024 ALT [Catalytic activity/Vol] 9 U/L <35 [facility] Serum or plasma albumin krissy urement (mass/volume)Ordered By: Jairon Medel on 08-28-2024 Albumin [Mass/Vol] 3.7 g/dL 3.4-4.8 [facility] Serum or plasma alkaline luis sphatase measurementOrdered By: Poojajefferson hospitalmakenzie Medel on 08-28-2024 ALP [Catalytic activity/Vol] 73 U/L 35-104 [facility] Serum or plasma cholesterol in HDL measurement (mass/volume)Ordered By: Jairon Medel 08-28-2024 Cholesterol in HDL [Mass/Vol] 52 mg/dL >40 [facility] Comment on above: National Cholesterol Education Program (NCEP) guidelines:<40 mg/dL: Low HDL-cholesterol (major risk factor for CHD)>= 60 mg/dL: High HDL-cholesterol (negative risk factor for CHD)HDL-cholesterol is affected by a number of factors, e.g. smoking, exercise, hormones, sex and age. Serum or plasma cholesterol measurement (mass/volume)Ordered By: Jairon Medel on 08-28-2024 Cholesterol [Mass/Vol] 121 mg/dL <201 [facility] Comment on above: Cholesterol level, D esirable <200 mg/dLBorderline high cholesterol 200-239 mg/dLHigh cholesterol >=240 mg/dLRecommendations of the NCEP Adult Treatment Panel for the following risk-cutoff thresholds for the [place] population. Serum or plasma valproate me asurement (mass/volume)Ordered By: Jairon Medel on 08-28-2024 Valproate [Mass/Vol] 14 ug/mL Low 50-100 [facility] Comment on above: Valproic Acid concen trations >100 ug/mL are potentially toxic. Total proteinOrdered By: Masoud Medel on 08-28-2024 Protein [Mass/Vol] 5.9 g/dL 5.9-8.4 [facility] Triglycerides measurementOrd ered By: Jairon Medel on 08-28-2024 Triglyceride [Mass/Vol] 115 mg/dL <199 [facility] Comment on above: The drugs N-Acetylcy steine and Metamizole may falsely depress this assay. Normal range: <150 mg/dLBorderline High: 150-199 mg/dLHigh: 200-499 mg/dLVery High: >500 mg/dL Absolute lymphocyte countOrd ered By: Jairon Medel on 08-21-2024 Lymphocytes Auto (Unsp spec) [#/Vol] 1.69 10*3/uL 0.83-4.51 [facility] Absolute neutrophil countOrd ered By: Jairon Medel on 08-21-2024 Neutrophils (Bld) [#/Vol] 4.3 10*3/uL 2.0-7.7 [facility] Anion gap in Serum or Plasma Ordered By: Jairon Medel on 08-21-2024 Anion gap [Moles/Vol] 10 mmol/L 5-15 [facility] Automated lymphocyte count a s percentage of total leukocytesOrdered By: Jairon Medel on 08-21-2024 Lymphocytes/100 WBC Auto (Unsp spec) 24.9 % 19-41 [facility] BUN/creatinine ratioOrdered By: Jairon Medel on 08-21-2024 Urea nitrogen/Creatinine [Mass ratio] 21.2 mg/mg High 10-20 [facility] Basophil percentageOrdered B y: Jairon Medel on 08-21-2024 Basophils/100 WBC (Bld) 0.7 % 0-1 [facility] Carbon dioxide, total [Moles /volume] in Central venous bloodOrdered By: Jairon Medel on 08-21-2024 CO2 [Moles/Vol] 24.4 mmol/L 21.0-32.0 [facility] Chloride assayOrdered By: Pooja pfeiffer Cortezdorcas on 08-21-2024 Chloride [Moles/Vol] 108 mmol/L 98-108 [facility] Eosinophil percentageOrdered By: Jairon Medel on 08-21-2024 Eosinophils/100 WBC (Bld) 1.9 % 0-5 [facility] Erythrocyte distribution wid th ratioOrdered By: Jairon Medel on 08-21-2024 Erythrocyte distribution width (RBC) [Ratio] 14.2 % 11.6-14.6 [facility] Erythrocyte distribution wid th standard deviationOrdered By: Jairon Medel on 08-21-2024 Erythrocyte distribution width (RBC) [Ratio] 47.2 fl High 35.1-43.9 [facility] Glomerular filtration rate ( GFR) estimation/1.73 sq m using serum, plasma, or whole bOrdered By: Carrillokykotsmovi villagemakenzie Medel on 08-21-2024 GFR/1.73 sq M.predicted among non-blacks MDRD (S/P/Bld) [Vol rate/Area] 67 mL/min/{1.73_m2} >60 [facility] Comment on above: mL/min/1.73m2 CKD-EP I Creatinine Equation (2020) Hematocrit Auto (Bld) [Volum e fraction]Ordered By: Jairon Medel 08-21-2024 Hematocrit (Bld) [Volume fraction] 31.9 % Low 37-47 [facility] Hemoglobin measurementOrdere d By: Jairon Medel 08-21-2024 Hemoglobin (Bld) [Mass/Vol] 10.2 g/dL Low 12.0-15.0 [facility] Immature granulocytes/100 WB C Auto (Bld)Ordered By: Jairon Medel 08-21-2024 Immature granulocytes/100 WBC (Bld) 0.100 % 0.0-0.9 [facility] Comment on above: IG% - Immature Granu locytes (promyelocytes, myelocytes and metamyelocytes) > 1% indicates that a LEFT SHIFT is Present. MCV (mean corpuscular volume ) determinationOrdered By: Jairon Medel 08-21-2024 MCV (RBC) [Entitic vol] 91.7 fL 81-99 [facility] Mean corpuscular hemoglobin (MCH) determinationOrdered By: Jairon Medel on 08-21-2024 MCH (RBC) [Entitic mass] 29.3 pg 27.0-32.0 [facility] Mean corpuscular hemoglobin concentration (MCHC) determinationOrdered By: Jairon Medel on 08-21-2024 MCHC (RBC) [Mass/Vol] 32.0 g/dL 32-36 [facility] Mean platelet volume determi nationOrdered By: Jairon Medel on 08-21-2024 Platelet mean volume (Bld) [Entitic vol] 10.6 fL 6.2-12.0 [facility] Monocyte percentageOrdered B y: Jairon Medel on 08-21-2024 Monocytes/100 WBC (Bld) 9.0 % 0-10 [facility] Neutrophil percentageOrdered By: Jairon Medel on 08-21-2024 Neutrophils/100 WBC (Bld) 63.4 % 47-70 [facility] Nucleated red blood cell per centageOrdered By: Jairon Medel on 08-21-2024 Nucleated RBC/100 WBC (Bld) [Ratio] 0 % 0-5 [facility] Platelet countOrdered By: Pooja Medel on 08-21-2024 Platelets (Bld) [#/Vol] 232 10*3/uL 150-450 [facility] Potassium measurement (mass/ volume)Ordered By: Jairon Medel on 08-21-2024 Potassium (Unsp spec) [Mass/Vol] 4.4 mmol/L 3.3-5.1 [facility] RBC Auto (Bld) [#/Vol]Ordere d By: Jairon Medel on 08-21-2024 RBC (Bld) [#/Vol] 3.48 10*6/uL Low 4.2-5.4 [facility] Serum creatinine measurement (mass/volume)Ordered By: Jairon Medel on 08-21-2024 Creatinine [Mass/Vol] 0.85 mg/dL 0.70-1.20 [facility] Serum glucose measurement (m ass/volume)Ordered By: Jairon Medel on 08-21-2024 Glucose [Mass/Vol] 95 mg/dL 70-99 [facility] Serum or plasma calcium krissy urement (mass/volume)Ordered By: Jairon Cortezjenifersophia on 08-21-2024 Calcium [Mass/Vol] 9.4 mg/dL 7.6-11.0 [facility] Serum or plasma urea nitroge n measurement (mass/volume)Ordered By: Jairon Cortezjenifersophia on 08-21-2024 Urea nitrogen [Mass/Vol] 18 mg/dL 4-19 [facility] Sodium levelOrdered By: Carrillo Medel on 08-21-2024 Sodium [Moles/Vol] 142 mmol/L 133-145 [facility] White blood cell (WBC) count Ordered By: Jairon Cortezjenifersophia on 08-21-2024 WBC (Bld) [#/Vol] 6.8 10*3/uL 4.4-11.0 [facility] Emergency Department Summary on 07-24-2024 Emergency Department Summary [facility] Medical Records Department [address] [place] [address] Emergency Department Summary 07/24/24 MR#: [id number] Acct: [id number] Name: CT DALTON Rep #: [id number] : 1940 83 From: Jean Claude Harry [...] PO DAILY 04/20/17 04/27/17 0 8:00 History gygltjsjzclm-Xm-efzh-m inerals 1 ea PO DAILY 04/20/17 Unknown [...] range of motion. 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 Neurologically she is awake and alert. She answers questions she does have dementia and some confusion. She does follow commands. Const Vital Signs: 07/24/24 01:24 07/24/24 01:24 Temperature 98 F Temperature Source Oral Pulse Rate 53 L Respirator (more content not included)... Normal [facility] HIP, UNI W/ Pelvis 2-3 Views on 07-24-2024 HIP, UNI W/ Pelvis 2-3 Views [facility] [address] [place], [place] [id number] HIP, UNI W/ Pelvis 2-3 Views MR#: [id number] Acct: [id number] Name: CT DALTON Rep #: [id number] : 1940 F 83 From: Lauri mason MD PCP: Dr. Jairon Medel MD Status: REG ER Study: HIP, UNI W/ Pelvis 2-3 Views Date of Exam: Exam# [id number] Ordering Dr: Jean Claude Harry MD PROCEDURE: [...] Right hip moderate degenerative changes. Reading Location: [place] [address] CC: Dr. Jairon Medel MD; Dr. Jean Claude Harry MD Provider Relations Representative: Signed Normal [facility] Absolute lymphocyte countOrd ered By: Jairon Medel on 06-26-2024 Lymphocytes Auto (Unsp spec) [#/Vol] 2.05 10*3/uL 0.83-4.51 [facility] Absolute neutrophil countOrd ered By: Jairon Medel on 06-26-2024 Neutrophils (Bld) [#/Vol] 3.9 10*3/uL 2.0-7.7 [facility] Anion gap in Serum or Plasma Ordered By: Jairon Medel on 06-26-2024 Anion gap [Moles/Vol] 9 mmol/L 5- [facility] Automated lymphocyte count a s percentage of total leukocytesOrdered By: Jairon Medel on 06-26-2024 Lymphocytes/100 WBC Auto (Unsp spec) 30.5 % - [facility] BUN/creatinine ratioOrdered By: Jairon Medel on 06-26-2024 Urea nitrogen/Creatinine [Mass ratio] 20.9 mg/mg High 10-20 [facility] Basophil percentageOrdered B y: Jairon Medel on 06-26-2024 Basophils/100 WBC (Bld) 0.4 % 0-1 [facility] Carbon dioxide, total [Moles /volume] in Central venous bloodOrdered By: Jairon Medel on 06-26-2024 CO2 [Moles/Vol] 23.5 mmol/L 21.0-32.0 [facility] Chloride assayOrdered By: Pooja Medel on 06-26-2024 Chloride [Moles/Vol] 107 mmol/L 98-108 [facility] Eosinophil percentageOrdered By: Jairon Medel on 06-26-2024 Eosinophils/100 WBC (Bld) 1.9 % 0-5 [facility] Erythrocyte distribution wid th ratioOrdered By: [facility] on 06-26-2024 Erythrocyte distribution width (RBC) [Ratio] 14.1 % 11.6-14.6 [facility] Erythrocyte distribution wid th standard deviationOrdered By: [facility] Medel on 06-26-2024 Erythrocyte distribution width (RBC) [Ratio] 46.5 fl High 35.1-43.9 [facility] Glomerular filtration rate ( GFR) estimation/1.73 sq m using serum, plasma, or whole bOrdered By: Jairon Medel on 06-26-2024 GFR/1.73 sq M.predicted among non-blacks MDRD (S/P/Bld) [Vol rate/Area] 55 mL/min/{1.73_m2} Low >60 [facility] Comment on above: mL/min/1.73m2 CKD-EP I Creatinine Equation (2020) Hematocrit Auto (Bld) [Volum e fraction]Ordered By: Jairon Medel on 06-26-2024 Hematocrit (Bld) [Volume fraction] 32.7 % Low 37-47 [facility] Hemoglobin measurementOrdere d By: Jairon Medel on 06-26-2024 Hemoglobin (Bld) [Mass/Vol] 10.1 g/dL Low 12.0-15.0 [facility] Immature granulocytes/100 WB C Auto (Bld)Ordered By: Jairon Medel on 06-26-2024 Immature granulocytes/100 WBC (Bld) 0.400 % 0.0-0.9 [facility] Comment on above: IG% - Immature Granu locytes (promyelocytes, myelocytes and metamyelocytes) > 1% indicates that a LEFT SHIFT is Present. MCV (mean corpuscular volume ) determinationOrdered By: Jairon Medel on 06-26-2024 MCV (RBC) [Entitic vol] 90.3 fL 81-99 [facility] Mean corpuscular hemoglobin (MCH) determinationOrdered By: margarette Medel on 06-26-2024 MCH (RBC) [Entitic mass] 27.9 pg 27.0-32.0 [facility] Mean corpuscular hemoglobin concentration (MCHC) determinationOrdered By: sreekanthkykotsmovi villagemakenzie Medel on 06-26-2024 MCHC (RBC) [Mass/Vol] 30.9 g/dL Low 32-36 [facility] Mean platelet volume determi nationOrdered By: Jairon Medel on 06-26-2024 Platelet mean volume (Bld) [Entitic vol] 10.3 fL 6.2-12.0 [facility] Monocyte percentageOrdered B y: Jairon Medel on 06-26-2024 Monocytes/100 WBC (Bld) 8.8 % 0-10 [facility] Neutrophil percentageOrdered By: [facility] Med[facility] on 06-26-2024 Neutrophils/100 WBC (Bld) 58.0 % 47-70 [facility] Nucleated red blood cell per centageOrdered By: sreekanthkykotsmovi villagemakenzie Medel on 06-26-2024 Nucleated RBC/100 WBC (Bld) [Ratio] 0 % 0-5 [facility] Platelet countOrdered By: Pooja sreekanthbraden Medel on 06-26-2024 Platelets (Bld) [#/Vol] 242 10*3/uL 150-450 [facility] Potassium measurement (mass/ volume)Ordered By: Jairon Medel on 06-26-2024 Potassium (Unsp spec) [Mass/Vol] 4.3 mmol/L 3.3-5.1 [facility] RBC Auto (Bld) [#/Vol]Ordere d By: Jairon Medel on 06-26-2024 RBC (Bld) [#/Vol] 3.62 10*6/uL Low 4.2-5.4 [facility] Serum creatinine measurement (mass/volume)Ordered By: Jairon Medel on 06-26-2024 Creatinine [Mass/Vol] 1.01 mg/dL 0.70-1.20 [facility] Serum glucose measurement (m ass/volume)Ordered By: Jairon Medel on 06-26-2024 Glucose [Mass/Vol] 89 mg/dL 70-99 [facility] Serum or plasma calcium krissy urement (mass/volume)Ordered By: Jairon Medel on 06-26-2024 Calcium [Mass/Vol] 9.6 mg/dL 7.6-11.0 [facility] Serum or plasma urea nitroge n measurement (mass/volume)Ordered By: Jairon Medel on 06-26-2024 Urea nitrogen [Mass/Vol] 21 mg/dL High 4-19 [facility] Sodium levelOrdered By: Carrillo malcolmrassophia Medel on 06-26-2024 Sodium [Moles/Vol] 140 mmol/L 133-145 [facility] White blood cell (WBC) count Ordered By: Jairon Medel on 06-26-2024 WBC (Bld) [#/Vol] 6.7 10*3/uL 4.4-11.0 [facility] Absolute lymphocyte countOrd ered By: Jairon Medel on 05-29-2024 Lymphocytes Auto (Unsp spec) [#/Vol] 2.09 10*3/uL 0.83-4.51 [facility] Absolute neutrophil countOrd ered By: Jairon Medel on 05-29-2024 Neutrophils (Bld) [#/Vol] 3.4 10*3/uL 2.0-7.7 [facility] Anion gap in Serum or Plasma Ordered By: Jairon Medel on 05-29-2024 Anion gap [Moles/Vol] 10 mmol/L 5-15 [facility] Automated lymphocyte count a s percentage of total leukocytesOrdered By: Jairon Medel on 05-29-2024 Lymphocytes/100 WBC Auto (Unsp spec) 34.4 % [facility] BUN/creatinine ratioOrdered By: Jairon Medel on 05-29-2024 Urea nitrogen/Creatinine [Mass ratio] 16.9 mg/mg 10-20 [facility] Basophil percentageOrdered B y: Jairon Medel on 05-29-2024 Basophils/100 WBC (Bld) 1.2 % High 0-1 [facility] Bilirubin directOrdered By: Carrillomahadmakenzie Torojenifersophia on 05-29-2024 Bilirubin.direct [Mass/Vol] 0.17 mg/dL 0.00-0.30 [facility] Bilirubin, totalOrdered By: Poojamargarette Torojenifersophia on 05-29-2024 Bilirubin [Mass/Vol] 0.35 mg/dL 0.00-1.30 [facility] Carbon dioxide, total [Moles /volume] in Central venous bloodOrdered By: Poojasreekanthmahadmakenzie Torojenifersophia on 05-29-2024 CO2 [Moles/Vol] 25.1 mmol/L 21.0-32.0 [facility] Chloride assayOrdered By: Pooja margarette Cortezjenifersophia on 05-29-2024 Chloride [Moles/Vol] 105 mmol/L 98-108 [facility] Eosinophil percentageOrdered By: Jairon Cortezdorcas on 05-29-2024 Eosinophils/100 WBC (Bld) 1.6 % 0-5 [facility] Erythrocyte distribution wid th (RBC) [Ratio]Ordered By: Poojasreekanthbraden Cortezjenifersophia on 05-29-2024 Erythrocyte distribution width (RBC) [Entitic vol] 41.0 fL 35.1-43.9 [facility] Erythrocyte distribution wid th ratioOrdered By: Carrillobraden Cortezjenifersophia on 05-29-2024 Erythrocyte distribution width (RBC) [Ratio] 13.1 % 11.6-14.6 [facility] Erythrocyte distribution wid th standard deviationOrdered By: Goldiemakenzie Torojenifersophia on 05-29-2024 Erythrocyte distribution width (RBC) [Ratio] 41.0 fl 35.1-43.9 [facility] GFR/1.73 sq M.predicted hua g non-blacks MDRD (S/P/Bld) [Vol rate/Area]Ordered By: Jairon Medel on 05-29-2024 Estimated GFR (MDRD) Non-Af Amer 50 Low >60 [facility] Comment on above: mL/min/1.73m2 CKD-EP I Creatinine Equation (2020) Glomerular filtration rate ( GFR) estimation/1.73 sq m using serum, plasma, or whole bOrdered By: Jairon Medel on 05-29-2024 GFR/1.73 sq M.predicted among non-blacks MDRD (S/P/Bld) [Vol rate/Area] 50 mL/min/{1.73_m2} Low >60 [facility] Comment on above: mL/min/1.73m2 CKD-EP I Creatinine Equation (2020) Hematocrit Auto (Bld) [Volum e fraction]Ordered By: Jairon Medel on 05-29-2024 Hematocrit (Bld) [Volume fraction] 33.4 % Low 37-47 [facility] Hemoglobin measurementOrdere d By: Jairon Medel on 05-29-2024 Hemoglobin (Bld) [Mass/Vol] 10.9 g/dL Low 12.0-15.0 [facility] Immature granulocytes/100 WB C Auto (Bld)Ordered By: Jairon Medel on 05-29-2024 Immature granulocytes/100 WBC (Bld) 0.200 % 0.0-0.9 [facility] Comment on above: IG% - Immature Granu locytes (promyelocytes, myelocytes and metamyelocytes) > 1% indicates that a LEFT SHIFT is Present. Laboratory - Chemistry and C hemistry - challengeOrdered By: Jairon Medel on 05-29-2024 AST [Catalytic activity/Vol] 20 U/L <32 [facility] Lymphocytes Auto (Unsp spec) [#/Vol]Ordered By: Jairon Medel on 05-29-2024 Lymphocytes (Bld) [#/Vol] 2.09 10*3/uL 0.83-4.51 [facility] Lymphocytes/100 WBC Auto (Un sp spec)Ordered By: Jairon Medel on 05-29-2024 Lymphocytes/100 WBC (Bld) 34.4 % 19-41 [facility] MCV (mean corpuscular volume ) determinationOrdered By: Jairon Medel on 05-29-2024 MCV (RBC) [Entitic vol] 85.9 fL 81-99 [facility] Mean corpuscular hemoglobin (MCH) determinationOrdered By: Jairon Medel on 05-29-2024 MCH (RBC) [Entitic mass] 28.0 pg 27.0-32.0 [facility] Mean corpuscular hemoglobin concentration (MCHC) determinationOrdered By: Jairon Medel on 05-29-2024 MCHC (RBC) [Mass/Vol] 32.6 g/dL 32-36 [facility] Mean platelet volume determi nationOrdered By: Jairon Medel on 05-29-2024 Platelet mean volume (Bld) [Entitic vol] 10.3 fL 6.2-12.0 [facility] Monocyte percentageOrdered B y: Jairon Medel on 05-29-2024 Monocytes/100 WBC (Bld) 7.6 % 0-10 [facility] Neutrophil percentageOrdered By: Jairon Medel on 05-29-2024 Neutrophils/100 WBC (Bld) 55.0 % 47-70 [facility] Nucleated red blood cell per centageOrdered By: Jairon Medel on 05-29-2024 Nucleated RBC/100 WBC (Bld) [Ratio] 0 % 0-5 [facility] Platelet countOrdered By: Pooja Medel on 05-29-2024 Platelets (Bld) [#/Vol] 247 10*3/uL 150-450 [facility] Potassium (Unsp spec) [Mass/ Vol]Ordered By: Jairon De Leonsophia on 05-29-2024 Potassium [Moles/Vol] 4.3 mmol/L 3.3-5.1 [facility] Potassium measurement (mass/ volume)Ordered By: Jairon Medel on 05-29-2024 Potassium (Unsp spec) [Mass/Vol] 4.3 mmol/L 3.3-5.1 [facility] RBC Auto (Bld) [#/Vol]Ordere d By: Jairon Cortezdorcas on 05-29-2024 RBC (Bld) [#/Vol] 3.89 10*6/uL Low 4.2-5.4 [facility] Serum creatinine measurement (mass/volume)Ordered By: Jairon Medel on 05-29-2024 Creatinine [Mass/Vol] 1.08 mg/dL 0.70-1.20 [facility] Serum globulin measurementOr dered By: Jairon Medel on 05-29-2024 Globulin (S) [Mass/Vol] 2.5 g/dL 2.2-4.2 [facility] Serum glucose measurement (m ass/volume)Ordered By: Jairon Medel on 05-29-2024 Glucose [Mass/Vol] 89 mg/dL 70-99 [facility] Serum or plasma alanine crane otransferase (ALT) measurementOrdered By: Jairon Medel on 05-29-2024 ALT [Catalytic activity/Vol] 11 U/L <35 [facility] Serum or plasma albumin krissy urement (mass/volume)Ordered By: Jairon Medel on 05-29-2024 Albumin [Mass/Vol] 4.0 g/dL 3.4-4.8 [facility] Serum or plasma alkaline luis sphatase measurementOrdered By: Jairon Medel on 05-29-2024 ALP [Catalytic activity/Vol] 62 U/L 35-104 [facility] Serum or plasma calcium krissy urement (mass/volume)Ordered By: Jairon Medel on 05-29-2024 Calcium [Mass/Vol] 9.8 mg/dL 7.6-11.0 [facility] Serum or plasma urea nitroge n measurement (mass/volume)Ordered By: Jairon Medel on 05-29-2024 Urea nitrogen [Mass/Vol] 18 mg/dL 4-19 [facility] Sodium levelOrdered By: Carrillo Medel on 05-29-2024 Sodium [Moles/Vol] 140 mmol/L 133-145 [facility] Total proteinOrdered By: Masoud Medel on 05-29-2024 Protein [Mass/Vol] 6.4 g/dL 5.9-8.4 [facility] White blood cell (WBC) count Ordered By: Jairon Medel on 05-29-2024 WBC (Bld) [#/Vol] 6.1 10*3/uL 4.4-11.0 [facility] Absolute lymphocyte countOrd ered By: Carrillomahadmakenzie Torojenifersophia on 05-24-2024 Lymphocytes Auto (Unsp spec) [#/Vol] 1.90 10*3/uL 0.83-4.51 [facility] Absolute neutrophil countOrd ered By: Carrillomahadmakenzie Torojenifersophia on 05-24-2024 Neutrophils (Bld) [#/Vol] 3.1 10*3/uL 2.0-7.7 [facility] Anion gap in Serum or Plasma Ordered By: Jairon Medel on 05-24-2024 Anion gap [Moles/Vol] 11 mmol/L 5-15 [facility] Automated lymphocyte count a s percentage of total leukocytesOrdered By: Jairon Torojenifersophia on 05-24-2024 Lymphocytes/100 WBC Auto (Unsp spec) 33.6 % 19-41 [facility] BUN/creatinine ratioOrdered By: Carrillomahadmakenzie Torojenifersophia on 05-24-2024 Urea nitrogen/Creatinine [Mass ratio] 19.7 mg/mg 10-20 [facility] Basophil percentageOrdered B y: Jairon Torojenifersophia on 05-24-2024 Basophils/100 WBC (Bld) 1.1 % High 0-1 [facility] Bilirubin, totalOrdered By: Jairon Torojenifersophia on 05-24-2024 Bilirubin [Mass/Vol] 0.29 mg/dL 0.00-1.30 [facility] Carbon dioxide, total [Moles /volume] in Central venous bloodOrdered By: Jairon Torojenifersophia on 05-24-2024 CO2 [Moles/Vol] 23.5 mmol/L 21.0-32.0 [facility] Chloride assayOrdered By: Pooja sreekanthbraden Medel on 05-24-2024 Chloride [Moles/Vol] 106 mmol/L 98-108 [facility] Eosinophil percentageOrdered By: Jairon Torojenifersophia on 05-24-2024 Eosinophils/100 WBC (Bld) 2.1 % 0-5 [facility] Erythrocyte distribution wid th (RBC) [Ratio]Ordered By: Jairon Medel on 05-24-2024 Erythrocyte distribution width (RBC) [Entitic vol] 41.3 fL 35.1-43.9 [facility] Erythrocyte distribution wid th ratioOrdered By: Jairon Medel on 05-24-2024 Erythrocyte distribution width (RBC) [Ratio] 13.2 % 11.6-14.6 [facility] Erythrocyte distribution wid th standard deviationOrdered By: sreekanthkykotsmovi villagemakenzie Medel on 05-24-2024 Erythrocyte distribution width (RBC) [Ratio] 41.3 fl 35.1-43.9 [facility] GFR/1.73 sq M.predicted hua g non-blacks MDRD (S/P/Bld) [Vol rate/Area]Ordered By: Jairon Medel on 05-24-2024 Estimated GFR (MDRD) Non-Af Amer 52 Low >60 [facility] Comment on above: mL/min/1.73m2 CKD-EP I Creatinine Equation (2020) Glomerular filtration rate ( GFR) estimation/1.73 sq m using serum, plasma, or whole bOrdered By: Jairon Medel on 05-24-2024 GFR/1.73 sq M.predicted among non-blacks MDRD (S/P/Bld) [Vol rate/Area] 52 mL/min/{1.73_m2} Low >60 [facility] Comment on above: mL/min/1.73m2 CKD-EP I Creatinine Equation (2020) Hematocrit Auto (Bld) [Volum e fraction]Ordered By: Jairon Medel on 05-24-2024 Hematocrit (Bld) [Volume fraction] 33.2 % Low 37-47 [facility] Hemoglobin A1c percentageOrd ered By: Jairon Medel on 05-24-2024 HbA1c (Bld) [Mass fraction] 5.5 % <5.7 [facility] Comment on above: Normal < 5.7 % Predi abetic 5.7 - 6.4 % Diabetic >or= 6.5 % Please note range changes. Hemoglobin measurementOrdere d By: Jairon Medel on 05-24-2024 Hemoglobin (Bld) [Mass/Vol] 10.7 g/dL Low 12.0-15.0 [facility] Immature granulocytes/100 WB C Auto (Bld)Ordered By: Jairon Medel on 05-24-2024 Immature granulocytes/100 WBC (Bld) 0.200 % 0.0-0.9 [facility] Comment on above: IG% - Immature Granu locytes (promyelocytes, myelocytes and metamyelocytes) > 1% indicates that a LEFT SHIFT is Present. Laboratory - Chemistry and C hemistry - challengeOrdered By: Jairon Medel on 05-24-2024 AST [Catalytic activity/Vol] 21 U/L <32 [facility] Lymphocytes Auto (Unsp spec) [#/Vol]Ordered By: Jairon Medel on 05-24-2024 Lymphocytes (Bld) [#/Vol] 1.90 10*3/uL 0.83-4.51 [facility] Lymphocytes/100 WBC Auto (Un sp spec)Ordered By: Jairon Medel on 05-24-2024 Lymphocytes/100 WBC (Bld) 33.6 % 19-41 [facility] MCV (mean corpuscular volume ) determinationOrdered By: Jairon Medel on 05-24-2024 MCV (RBC) [Entitic vol] 86.2 fL 81-99 [facility] Mean corpuscular hemoglobin (MCH) determinationOrdered By: Jairon Medel on 05-24-2024 MCH (RBC) [Entitic mass] 27.8 pg 27.0-32.0 [facility] Mean corpuscular hemoglobin concentration (MCHC) determinationOrdered By: Jairon Medel on 05-24-2024 MCHC (RBC) [Mass/Vol] 32.2 g/dL 32-36 [facility] Mean platelet volume determi nationOrdered By: Jairon Medel on 05-24-2024 Platelet mean volume (Bld) [Entitic vol] 10.2 fL 6.2-12.0 [facility] Monocyte percentageOrdered B y: Jairon Medel on 05-24-2024 Monocytes/100 WBC (Bld) 8.1 % 0-10 [facility] Neutrophil percentageOrdered By: Jairon Medel on 05-24-2024 Neutrophils/100 WBC (Bld) 54.9 % 47-70 [facility] Nucleated red blood cell per centageOrdered By: Jairon Medel on 05-24-2024 Nucleated RBC/100 WBC (Bld) [Ratio] 0 % 0-5 [facility] Platelet countOrdered By: Pooja Medel on 05-24-2024 Platelets (Bld) [#/Vol] 264 10*3/uL 150-450 [facility] Potassium (Unsp spec) [Mass/ Vol]Ordered By: Jairon Medel on 05-24-2024 Potassium [Moles/Vol] 3.9 mmol/L 3.3-5.1 [facility] Potassium measurement (mass/ volume)Ordered By: Jairon Medel on 05-24-2024 Potassium (Unsp spec) [Mass/Vol] 3.9 mmol/L 3.3-5.1 [facility] RBC Auto (Bld) [#/Vol]Ordere d By: Jairon Medel on 05-24-2024 RBC (Bld) [#/Vol] 3.85 10*6/uL Low 4.2-5.4 [facility] Serum creatinine measurement (mass/volume)Ordered By: Jairon Medel on 05-24-2024 Creatinine [Mass/Vol] 1.05 mg/dL 0.70-1.20 [facility] Serum globulin measurementOr dered By: Jairon Medel on 05-24-2024 Globulin (S) [Mass/Vol] 2.6 g/dL 2.2-4.2 [facility] Serum glucose measurement (m ass/volume)Ordered By: Jairon Medel on 05-24-2024 Glucose [Mass/Vol] 95 mg/dL 70-99 [facility] Serum or plasma alanine crane otransferase (ALT) measurementOrdered By: Jairon Medel on 05-24-2024 ALT [Catalytic activity/Vol] 11 U/L <35 [facility] Serum or plasma albumin krissy urement (mass/volume)Ordered By: Jairon Medel on 05-24-2024 Albumin [Mass/Vol] 4.0 g/dL 3.4-4.8 [facility] Serum or plasma albumin/glob ulin mass ratioOrdered By: Jairon Medel on 05-24-2024 Albumin/Globulin [Mass ratio] 1.5 {ratio} 0.9-2.4 [facility] Serum or plasma alkaline luis sphatase measurementOrdered By: Jairon Medel on 05-24-2024 ALP [Catalytic activity/Vol] 67 U/L 35-104 [facility] Serum or plasma calcium krissy urement (mass/volume)Ordered By: Jairon Medel on 05-24-2024 Calcium [Mass/Vol] 9.9 mg/dL 7.6-11.0 [facility] Serum or plasma urea nitroge n measurement (mass/volume)Ordered By: Jairon Medel 05-24-2024 Urea nitrogen [Mass/Vol] 21 mg/dL High 4-19 [facility] Sodium levelOrdered By: Carrillo malcolmrajesh Gianfranco on 05-24-2024 Sodium [Moles/Vol] 141 mmol/L 133-145 [facility] Total proteinOrdered By: Masoud Medel on 05-24-2024 Protein [Mass/Vol] 6.6 g/dL 5.9-8.4 [facility] White blood cell (WBC) count Ordered By: Jairon Medel 05-24-2024 WBC (Bld) [#/Vol] 5.7 10*3/uL 4.4-11.0 [facility] Anion gap in Serum or Plasma Ordered By: Jairon Medel on 05-15-2024 Anion gap [Moles/Vol] 10 mmol/L 5-15 [facility] BUN/creatinine ratioOrdered By: Jairon Medel on 05-15-2024 Urea nitrogen/Creatinine [Mass ratio] 15.3 mg/mg 10-20 [facility] Carbon dioxide, total [Moles /volume] in Central venous bloodOrdered By: Jairon Medel on 05-15-2024 CO2 [Moles/Vol] 25.0 mmol/L 21.0-32.0 [facility] Chloride assayOrdered By: Pooja Medel on 05-15-2024 Chloride [Moles/Vol] 108 mmol/L 98-108 [facility] GFR/1.73 sq M.predicted hua g non-blacks MDRD (S/P/Bld) [Vol rate/Area]Ordered By: Jairon Medel on 05-15-2024 Estimated GFR (MDRD) Non-Af Amer 57 Low >60 [facility] Comment on above: mL/min/1.73m2 CKD-EP I Creatinine Equation (2020) Glomerular filtration rate ( GFR) estimation/1.73 sq m using serum, plasma, or whole bOrdered By: Jairon Medel on 05-15-2024 GFR/1.73 sq M.predicted among non-blacks MDRD (S/P/Bld) [Vol rate/Area] 57 mL/min/{1.73_m2} Low >60 [facility] Comment on above: mL/min/1.73m2 CKD-EP I Creatinine Equation (2020) Potassium (Unsp spec) [Mass/ Vol]Ordered By: Jairon Medel on 05-15-2024 Potassium [Moles/Vol] 3.8 mmol/L 3.3-5.1 [facility] Potassium measurement (mass/ volume)Ordered By: Jairon Medel on 05-15-2024 Potassium (Unsp spec) [Mass/Vol] 3.8 mmol/L 3.3-5.1 [facility] Serum creatinine measurement (mass/volume)Ordered By: Jairon Medel on 05-15-2024 Creatinine [Mass/Vol] 0.98 mg/dL 0.70-1.20 [facility] Serum glucose measurement (m ass/volume)Ordered By: Jairon Medel on 05-15-2024 Glucose [Mass/Vol] 87 mg/dL 70-99 [facility] Serum or plasma calcium krissy urement (mass/volume)Ordered By: Jairon Medel on 05-15-2024 Calcium [Mass/Vol] 9.8 mg/dL 7.6-11.0 [facility] Serum or plasma urea nitroge n measurement (mass/volume)Ordered By: Jairon Torojenifersophia on 05-15-2024 Urea nitrogen [Mass/Vol] 15 mg/dL 4-19 [facility] Sodium levelOrdered By: Poojasreekanth feliciano Cortezjenifersophia on 05-15-2024 Sodium [Moles/Vol] 143 mmol/L 133-145 [facility] Absolute lymphocyte countOrd ered By: Carrillomahadmakenzie Torojenifersophia on 05-01-2024 Lymphocytes Auto (Unsp spec) [#/Vol] 1.90 10*3/uL 0.83-4.51 [facility] Absolute neutrophil countOrd ered By: Carrillomahadmakenzie Torojenifersophia on 05-01-2024 Neutrophils (Bld) [#/Vol] 2.7 10*3/uL 2.0-7.7 [facility] Anion gap in Serum or Plasma Ordered By: Jairon Medel on 05-01-2024 Anion gap [Moles/Vol] 11 mmol/L 5-15 [facility] Automated lymphocyte count a s percentage of total leukocytesOrdered By: Jairon Medel on 05-01-2024 Lymphocytes/100 WBC Auto (Unsp spec) 35.5 % 19-41 [facility] BUN/creatinine ratioOrdered By: Jairon Torojenifersophia on 05-01-2024 Urea nitrogen/Creatinine [Mass ratio] 17.8 mg/mg 10-20 [facility] Basophil percentageOrdered B y: Carrillomahadmakenzie Torojenifersophia on 05-01-2024 Basophils/100 WBC (Bld) 1.5 % High 0-1 [facility] Carbon dioxide, total [Moles /volume] in Central venous bloodOrdered By: Jairon Medel on 05-01-2024 CO2 [Moles/Vol] 23.3 mmol/L 21.0-32.0 [facility] Chloride assayOrdered By: Pooja Medel on 05-01-2024 Chloride [Moles/Vol] 107 mmol/L 98-108 [facility] Eosinophil percentageOrdered By: Jairon Medel on 05-01-2024 Eosinophils/100 WBC (Bld) 2.2 % 0-5 [facility] Erythrocyte distribution wid th (RBC) [Ratio]Ordered By: Jairon Medel on 05-01-2024 Erythrocyte distribution width (RBC) [Entitic vol] 44.5 fL High 35.1-43.9 [facility] Erythrocyte distribution wid th ratioOrdered By: Jairon Medel on 05-01-2024 Erythrocyte distribution width (RBC) [Ratio] 13.0 % 11.6-14.6 [facility] Erythrocyte distribution wid th standard deviationOrdered By: Jairon Medel on 05-01-2024 Erythrocyte distribution width (RBC) [Ratio] 44.5 fl High 35.1-43.9 [facility] GFR/1.73 sq M.predicted hua g non-blacks MDRD (S/P/Bld) [Vol rate/Area]Ordered By: Jairon Medel on 05-01-2024 Estimated GFR (MDRD) Non-Af Amer 58 Low >60 [facility] Comment on above: mL/min/1.73m2 CKD-EP I Creatinine Equation (2020) Glomerular filtration rate ( GFR) estimation/1.73 sq m using serum, plasma, or whole bOrdered By: Jairon Medel on 05-01-2024 GFR/1.73 sq M.predicted among non-blacks MDRD (S/P/Bld) [Vol rate/Area] 58 mL/min/{1.73_m2} Low >60 [facility] Comment on above: mL/min/1.73m2 CKD-EP I Creatinine Equation (2020) Hematocrit Auto (Bld) [Volum e fraction]Ordered By: Jairon Medel on 05-01-2024 Hematocrit (Bld) [Volume fraction] 37.3 % 37-47 [facility] Hemoglobin measurementOrdere d By: Jairon Medel on 05-01-2024 Hemoglobin (Bld) [Mass/Vol] 11.3 g/dL Low 12.0-15.0 [facility] Immature granulocytes/100 WB C Auto (Bld)Ordered By: Jairon Medel on 05-01-2024 Immature granulocytes/100 WBC (Bld) 1.100 % High 0.0-0.9 [facility] Comment on above: IG% - Immature Granu locytes (promyelocytes, myelocytes and metamyelocytes) > 1% indicates that a LEFT SHIFT is Present. Lymphocytes Auto (Unsp spec) [#/Vol]Ordered By: Jairon Medel on 05-01-2024 Lymphocytes (Bld) [#/Vol] 1.90 10*3/uL 0.83-4.51 [facility] Lymphocytes/100 WBC Auto (Un sp spec)Ordered By: Jairon Medel on 05-01-2024 Lymphocytes/100 WBC (Bld) 35.5 % 19-41 [facility] MCV (mean corpuscular volume ) determinationOrdered By: Jairon Medel on 05-01-2024 MCV (RBC) [Entitic vol] 93.5 fL 81-99 [facility] Mean corpuscular hemoglobin (MCH) determinationOrdered By: Jairon Medel on 05-01-2024 MCH (RBC) [Entitic mass] 28.3 pg 27.0-32.0 [facility] Mean corpuscular hemoglobin concentration (MCHC) determinationOrdered By: Jairon Medel on 05-01-2024 MCHC (RBC) [Mass/Vol] 30.3 g/dL Low 32-36 [facility] Mean platelet volume determi nationOrdered By: Jairon Medel on 05-01-2024 Platelet mean volume (Bld) [Entitic vol] 10.2 fL 6.2-12.0 [facility] Monocyte percentageOrdered B y: Jairon Medel on 05-01-2024 Monocytes/100 WBC (Bld) 9.0 % 0-10 [facility] Neutrophil percentageOrdered By: Jairon Medel on 05-01-2024 Neutrophils/100 WBC (Bld) 50.7 % 47-70 [facility] Nucleated red blood cell per centageOrdered By: Jairon Medel on 05-01-2024 Nucleated RBC/100 WBC (Bld) [Ratio] 0 % 0-5 [facility] Platelet countOrdered By: Pooja Medel on 05-01-2024 Platelets (Bld) [#/Vol] 235 10*3/uL 150-450 [facility] Potassium (Unsp spec) [Mass/ Vol]Ordered By: Jairon Medel on 05-01-2024 Potassium [Moles/Vol] 4.3 mmol/L 3.3-5.1 [facility] Potassium measurement (mass/ volume)Ordered By: Jairon Medel on 05-01-2024 Potassium (Unsp spec) [Mass/Vol] 4.3 mmol/L 3.3-5.1 [facility] RBC Auto (Bld) [#/Vol]Ordere d By: Jairon Medel on 05-01-2024 RBC (Bld) [#/Vol] 3.99 10*6/uL Low 4.2-5.4 [facility] Serum creatinine measurement (mass/volume)Ordered By: Jairon Medel on 05-01-2024 Creatinine [Mass/Vol] 0.96 mg/dL 0.70-1.20 [facility] Serum glucose measurement (m ass/volume)Ordered By: Jairon Medel on 05-01-2024 Glucose [Mass/Vol] 89 mg/dL 70-99 [facility] Serum or plasma calcium krissy urement (mass/volume)Ordered By: Jairon Medel on 05-01-2024 Calcium [Mass/Vol] 9.8 mg/dL 7.6-11.0 [facility] Serum or plasma urea nitroge n measurement (mass/volume)Ordered By: Jairon Medel on 05-01-2024 Urea nitrogen [Mass/Vol] 17 mg/dL 4-19 [facility] Sodium levelOrdered By: Carrillo Medel on 05-01-2024 Sodium [Moles/Vol] 141 mmol/L 133-145 [facility] White blood cell (WBC) count Ordered By: Jairon Medel on 05-01-2024 WBC (Bld) [#/Vol] 5.4 10*3/uL 4.4-11.0 [facility] Absolute lymphocyte countOrd ered By: Jairon Medel on 04-03-2024 Lymphocytes Auto (Unsp spec) [#/Vol] 1.70 10*3/uL 0.83-4.51 [facility] Absolute neutrophil countOrd ered By: Poojasreekanthmahadmakenzie Torojenifersophia on 04-03-2024 Neutrophils (Bld) [#/Vol] 3.0 10*3/uL 2.0-7.7 [facility] Automated lymphocyte count a s percentage of total leukocytesOrdered By: Jairon Medel on 04-03-2024 Lymphocytes/100 WBC Auto (Unsp spec) 32.1 % 19-41 [facility] Basophil percentageOrdered B y: Jairon Medel on 04-03-2024 Basophils/100 WBC (Bld) 1.3 % High 0-1 [facility] Blood urea nitrogen (BUN)/cr eatinine ratioOrdered By: Jairon Medel on 04-03-2024 Urea nitrogen/Creatinine [Mass ratio] 21.1 mg/mg High 10-20 [facility] Carbon dioxide measurementOr dered By: Jairon Medel on 04-03-2024 CO2 [Moles/Vol] 27.0 mmol/L 21.0-32.0 [facility] Chloride measurementOrdered By: sreekanthkykotsmovi villagemakenzie Medel on 04-03-2024 Chloride [Moles/Vol] 111 mmol/L High 98-107 [facility] Eosinophil percentageOrdered By: Jairon Medel on 04-03-2024 Eosinophils/100 WBC (Bld) 2.3 % 0-5 [facility] Erythrocyte distribution wid th (RBC) [Ratio]Ordered By: Jairon Medel on 04-03-2024 Erythrocyte distribution width (RBC) [Entitic vol] 43.2 fL 35.1-43.9 [facility] Erythrocyte distribution wid th ratioOrdered By: margarette Medel on 04-03-2024 Erythrocyte distribution width (RBC) [Ratio] 13.2 % 11.6-14.6 [facility] Erythrocyte distribution wid th standard deviationOrdered By: margarette Medel on 04-03-2024 Erythrocyte distribution width (RBC) [Ratio] 43.2 fl 35.1-43.9 [facility] Estimated glomerular filtrat ion rate (GFR) AmericanOrdered By: Jairon Medel on 04-03-2024 Estimated GFR (MDRD) Amer 72 mL/min >60 [facility] Comment on above: GFR Calc Glomerular filtration rate ( GFR) estimationOrdered By: Jairon Medel on 04-03-2024 Estimated GFR (MDRD) Non-Af Amer 59 mL/min Low >60 [facility] Comment on above: Non- GFR Calc GFR/1.73 sq M.predicted among non-blacks MDRD (S/P/Bld) [Vol rate/Area] 59 mL/min/{1.73_m2} Low >60 [facility] Comment on above: Non- GFR Calc Glucose measurementOrdered B y: Jairon Medel on 04-03-2024 Glucose [Mass/Vol] 93 mg/dL 74-106 [facility] Hematocrit Auto (Bld) [Volum e fraction]Ordered By: Jairon Medel on 04-03-2024 Hematocrit (Bld) [Volume fraction] 31.6 % Low 37-47 [facility] Hemoglobin measurementOrdere d By: Jairon Medel on 04-03-2024 Hemoglobin (Bld) [Mass/Vol] 9.7 g/dL Low 12.0-15.0 [facility] Immature granulocytes/100 WB C Auto (Bld)Ordered By: margarette Medel on 04-03-2024 Immature granulocytes/100 WBC (Bld) 0.200 % 0.0-0.9 [facility] Comment on above: IG% - Immature Granu locytes (promyelocytes, myelocytes and metamyelocytes) > 1% indicates that a LEFT SHIFT is Present. Lymphocytes Auto (Unsp spec) [#/Vol]Ordered By: Jairon Medel on 04-03-2024 Lymphocytes (Bld) [#/Vol] 1.70 10*3/uL 0.83-4.51 [facility] Lymphocytes/100 WBC Auto (Un sp spec)Ordered By: Jairon Medel on 04-03-2024 Lymphocytes/100 WBC (Bld) 32.1 % 19-41 [facility] MCV (mean corpuscular volume ) determinationOrdered By: Jairon Medel on 04-03-2024 MCV (RBC) [Entitic vol] 91.1 fL 81-99 [facility] Mean corpuscular hemoglobin (MCH) determinationOrdered By: Jairon Medel on 04-03-2024 MCH (RBC) [Entitic mass] 28.0 pg 27.0-32.0 [facility] Mean corpuscular hemoglobin concentration (MCHC) determinationOrdered By: Jairon Medel on 04-03-2024 MCHC (RBC) [Mass/Vol] 30.7 g/dL Low 32-36 [facility] Mean platelet volume determi nationOrdered By: Jairon Medel on 04-03-2024 Platelet mean volume (Bld) [Entitic vol] 9.9 fL 6.2-12.0 [facility] Monocyte percentageOrdered B y: Jairon Medel on 04-03-2024 Monocytes/100 WBC (Bld) 8.3 % 0-10 [facility] Neutrophil percentageOrdered By: Jairon Medel on 04-03-2024 Neutrophils/100 WBC (Bld) 55.8 % 47-70 [facility] Nucleated red blood cell per centageOrdered By: Jairon Medel on 04-03-2024 Nucleated RBC/100 WBC (Bld) [Ratio] 0 % 0-5 [facility] Platelet countOrdered By: Pooja Medel on 04-03-2024 Platelets (Bld) [#/Vol] 229 10*3/uL 150-450 [facility] Potassium measurementOrdered By: Jairon Medel on 04-03-2024 Potassium [Moles/Vol] 4.4 mmol/L 3.5-5.1 [facility] RBC Auto (Bld) [#/Vol]Ordere d By: Jairon Medel on 04-03-2024 RBC (Bld) [#/Vol] 3.47 10*6/uL Low 4.2-5.4 [facility] Serum anion gap measurementO rdered By: Jairon Medel on 04-03-2024 Anion gap [Moles/Vol] 6 mmol/L 5-15 [facility] Serum or plasma calcium krissy urement (mass/volume)Ordered By: Jairon Medel on 04-03-2024 Calcium [Mass/Vol] 9.4 mg/dL 8.5-10.1 [facility] Serum or plasma creatinine m easurement (mass/volume)Ordered By: Jairon Medel on 04-03-2024 Creatinine [Mass/Vol] 0.95 mg/dL 0.55-1.02 [facility] Comment on above: The validity of the calculated GFR & GFRAA in patients over 70 years has not been determined. Clinical correlation is essential. Serum or plasma urea nitroge n measurement (mass/volume)Ordered By: Jairon Medel on 04-03-2024 Urea nitrogen [Mass/Vol] 20 mg/dL High 7-18 [facility] Sodium levelOrdered By: Carrillo malcolmrajesh Gianfranco on 04-03-2024 Sodium [Moles/Vol] 144 mmol/L 136-145 [facility] White blood cell (WBC) count Ordered By: Jairon Medel on 04-03-2024 WBC (Bld) [#/Vol] 5.3 10*3/uL 4.4-11.0 [facility] Absolute lymphocyte countOrd ered By: Jairon Medel on 03-27-2024 Lymphocytes Auto (Unsp spec) [#/Vol] 2.06 10*3/uL 0.83-4.51 [facility] Absolute neutrophil countOrd ered By: Jairon Medel on 03-27-2024 Neutrophils (Bld) [#/Vol] 3.3 10*3/uL 2.0-7.7 [facility] Automated lymphocyte count a s percentage of total leukocytesOrdered By: Jairon Medel on 03-27-2024 Lymphocytes/100 WBC Auto (Unsp spec) 33.5 % 19-41 [facility] Basophil percentageOrdered B y: Jairon Medel on 03-27-2024 Basophils/100 WBC (Bld) 0.8 % 0-1 [facility] Blood urea nitrogen (BUN)/cr eatinine ratioOrdered By: Jairon Medel on 03-27-2024 Urea nitrogen/Creatinine [Mass ratio] 19.3 mg/mg 10-20 [facility] Carbon dioxide measurementOr dered By: Jairon Medel on 03-27-2024 CO2 [Moles/Vol] 27.0 mmol/L 21.0-32.0 [facility] Chloride measurementOrdered By: Jairon Medel on 03-27-2024 Chloride [Moles/Vol] 110 mmol/L High 98-107 [facility] Eosinophil percentageOrdered By: Jairon Medel on 03-27-2024 Eosinophils/100 WBC (Bld) 2.3 % 0-5 [facility] Erythrocyte distribution wid th (RBC) [Ratio]Ordered By: Jairon Medel on 03-27-2024 Erythrocyte distribution width (RBC) [Entitic vol] 43.7 fL 35.1-43.9 [facility] Erythrocyte distribution wid th ratioOrdered By: Jairon Medel on 03-27-2024 Erythrocyte distribution width (RBC) [Ratio] 13.2 % 11.6-14.6 [facility] Erythrocyte distribution wid th standard deviationOrdered By: Jairon Medel on 03-27-2024 Erythrocyte distribution width (RBC) [Ratio] 43.7 fl 35.1-43.9 [facility] Estimated glomerular filtrat ion rate (GFR) AmericanOrdered By: Jairon Medel on 03-27-2024 Estimated GFR (MDRD) Amer 69 mL/min >60 [facility] Comment on above: GFR Calc Glomerular filtration rate ( GFR) estimationOrdered By: Jairon Medel on 03-27-2024 Estimated GFR (MDRD) Non-Af Amer 57 mL/min Low >60 [facility] Comment on above: Non- GFR Calc GFR/1.73 sq M.predicted among non-blacks MDRD (S/P/Bld) [Vol rate/Area] 57 mL/min/{1.73_m2} Low >60 [facility] Comment on above: Non- GFR Calc Glucose measurementOrdered B y: Jairon Medel on 03-27-2024 Glucose [Mass/Vol] 89 mg/dL 74-106 [facility] Hematocrit Auto (Bld) [Volum e fraction]Ordered By: Jairon Medel on 03-27-2024 Hematocrit (Bld) [Volume fraction] 30.9 % Low 37-47 [facility] Hemoglobin measurementOrdere d By: Jairon Medel on 03-27-2024 Hemoglobin (Bld) [Mass/Vol] 9.6 g/dL Low 12.0-15.0 [facility] Immature granulocytes/100 WB C Auto (Bld)Ordered By: Jairon Medel on 03-27-2024 Immature granulocytes/100 WBC (Bld) 0.500 % 0.0-0.9 [facility] Comment on above: IG% - Immature Granu locytes (promyelocytes, myelocytes and metamyelocytes) > 1% indicates that a LEFT SHIFT is Present. Lymphocytes Auto (Unsp spec) [#/Vol]Ordered By: Jairon Medel on 03-27-2024 Lymphocytes (Bld) [#/Vol] 2.06 10*3/uL 0.83-4.51 [facility] Lymphocytes/100 WBC Auto (Un sp spec)Ordered By: Jairon Medel on 03-27-2024 Lymphocytes/100 WBC (Bld) 33.5 % 19-41 [facility] MCV (mean corpuscular volume ) determinationOrdered By: Jairon Medel on 03-27-2024 MCV (RBC) [Entitic vol] 90.1 fL 81-99 [facility] Mean corpuscular hemoglobin (MCH) determinationOrdered By: Jairon Medel on 03-27-2024 MCH (RBC) [Entitic mass] 28.0 pg 27.0-32.0 [facility] Mean corpuscular hemoglobin concentration (MCHC) determinationOrdered By: Jairon Medel on 03-27-2024 MCHC (RBC) [Mass/Vol] 31.1 g/dL Low 32-36 [facility] Mean platelet volume determi nationOrdered By: Jairon Medel on 03-27-2024 Platelet mean volume (Bld) [Entitic vol] 10.2 fL 6.2-12.0 [facility] Monocyte percentageOrdered B y: Carrillomahadmakenzie Torojenifersophia on 03-27-2024 Monocytes/100 WBC (Bld) 9.6 % 0-10 [facility] Neutrophil percentageOrdered By: Jairon Torojenifersophia on 03-27-2024 Neutrophils/100 WBC (Bld) 53.3 % 47-70 [facility] Nucleated red blood cell per centageOrdered By: Jairon Torojenifersophia on 03-27-2024 Nucleated RBC/100 WBC (Bld) [Ratio] 0 % 0-5 [facility] Platelet countOrdered By: Pooja sreekanthbraden Medel on 03-27-2024 Platelets (Bld) [#/Vol] 235 10*3/uL 150-450 [facility] Potassium measurementOrdered By: Jairon Medel on 03-27-2024 Potassium [Moles/Vol] 4.0 mmol/L 3.5-5.1 [facility] RBC Auto (Bld) [#/Vol]Ordere d By: Jairon Torojenifersophia on 03-27-2024 RBC (Bld) [#/Vol] 3.43 10*6/uL Low 4.2-5.4 [facility] Serum anion gap measurementO rdered By: Jairon Torojenifersophia on 03-27-2024 Anion gap [Moles/Vol] 6 mmol/L 5-15 [facility] Serum or plasma calcium krissy urement (mass/volume)Ordered By: Jairon Medel on 03-27-2024 Calcium [Mass/Vol] 9.3 mg/dL 8.5-10.1 [facility] Serum or plasma creatinine m easurement (mass/volume)Ordered By: Jairon Medel on 03-27-2024 Creatinine [Mass/Vol] 0.98 mg/dL 0.55-1.02 [facility] Comment on above: The validity of the calculated GFR & GFRAA in patients over 70 years has not been determined. Clinical correlation is essential. Serum or plasma urea nitroge n measurement (mass/volume)Ordered By: Jairon Medel on 03-27-2024 Urea nitrogen [Mass/Vol] 19 mg/dL High 7-18 [facility] Sodium levelOrdered By: Carrillo Medel on 03-27-2024 Sodium [Moles/Vol] 143 mmol/L 136-145 [facility] White blood cell (WBC) count Ordered By: Jairon Cortezdorcas on 03-27-2024 WBC (Bld) [#/Vol] 6.2 10*3/uL 4.4-11.0 [facility] 92-[id number]-Fxlsgzi DOrdered By: Sophia taylor Cortezdorcas on 02-28-2024 Vitamin D 25-Hydroxy 60.8 ng/mL [facility] Comment on above: Vitamin D 25(OH) Sta tus Range Deficiency <20 ng/mL (50nmol/L) Insufficiency 20 - 30 ng/mL (50 - 75 nmol/L) Sufficiency 30 - 100 ng/mL (75 - 250 nmol/L) Toxicity >100 ng/mL (>250 nmol/L) Absolute lymphocyte countOrd ered By: Jairon Cortezjenifersophia on 02-28-2024 Lymphocytes Auto (Unsp spec) [#/Vol] 1.75 10*3/uL 0.83-4.51 [facility] Absolute neutrophil countOrd ered By: Jairon Cortezdorcas on 02-28-2024 Neutrophils (Bld) [#/Vol] 3.9 10*3/uL 2.0-7.7 [facility] Albumin to globulin ratioOrd ered By: Jairon Medel on 02-28-2024 Albumin/Globulin [Mass ratio] 1.0 {ratio} 0.9-2.4 [facility] Automated lymphocyte count a s percentage of total leukocytesOrdered By: Jairon Cortezjenifersophia on 02-28-2024 Lymphocytes/100 WBC Auto (Unsp spec) 27.3 % 19-41 [facility] Basophil percentageOrdered B y: Jairon Cortezjenifersophia on 02-28-2024 Basophils/100 WBC (Bld) 0.8 % 0-1 [facility] Bilirubin, totalOrdered By: Jairon Cortezdorcas on 02-28-2024 Bilirubin [Mass/Vol] 0.20 mg/dL 0.20-1.00 [facility] Comment on above: For patients on eltr ombopag therapy, use of Dimension [place] TBIL is not recommended. Blood urea nitrogen (BUN)/cr eatinine ratioOrdered By: Jairon Medel on 02-28-2024 Urea nitrogen/Creatinine [Mass ratio] 24.1 mg/mg High 10-20 [facility] Carbon dioxide measurementOr dered By: Jairon Medel on 02-28-2024 CO2 [Moles/Vol] 27.0 mmol/L 21.0-32.0 [facility] Chloride measurementOrdered By: Jairon Medel on 02-28-2024 Chloride [Moles/Vol] 111 mmol/L High 98-107 [facility] Eosinophil percentageOrdered By: Jairon Medel on 02-28-2024 Eosinophils/100 WBC (Bld) 2.3 % 0-5 [facility] Erythrocyte distribution wid th (RBC) [Ratio]Ordered By: Jairon Medel on 02-28-2024 Erythrocyte distribution width (RBC) [Entitic vol] 43.7 fL 35.1-43.9 [facility] Erythrocyte distribution wid th ratioOrdered By: Jairon Medel on 02-28-2024 Erythrocyte distribution width (RBC) [Ratio] 13.4 % 11.6-14.6 [facility] Erythrocyte distribution wid th standard deviationOrdered By: Jairon Medel on 02-28-2024 Erythrocyte distribution width (RBC) [Ratio] 43.7 fl 35.1-43.9 [facility] Estimated glomerular filtrat ion rate (GFR) AmericanOrdered By: Jairon Medel on 02-28-2024 Estimated GFR (MDRD) Amer 72 mL/min >60 [facility] Comment on above: GFR Calc Glomerular filtration rate ( GFR) estimationOrdered By: Jairon Medel on 02-28-2024 Estimated GFR (MDRD) Non-Af Amer 59 mL/min Low >60 [facility] Comment on above: Non- GFR Calc GFR/1.73 sq M.predicted among non-blacks MDRD (S/P/Bld) [Vol rate/Area] 59 mL/min/{1.73_m2} Low >60 [facility] Comment on above: Non- GFR Calc Glucose measurementOrdered B y: Jairon Medel on 02-28-2024 Glucose [Mass/Vol] 93 mg/dL 74-106 [facility] Hematocrit Auto (Bld) [Volum e fraction]Ordered By: Poojasreekanthmahadmakenzie Torojenifersophia on 02-28-2024 Hematocrit (Bld) [Volume fraction] 32.1 % Low 37-47 [facility] Hemoglobin measurementOrdere d By: Goldiemakenzie Torojenifersophia on 02-28-2024 Hemoglobin (Bld) [Mass/Vol] 9.9 g/dL Low 12.0-15.0 [facility] High density lipoprotein (HD L) measurementOrdered By: Poojasreekanthmahadmakenzie Torojenifersophia on 02-28-2024 Cholesterol in HDL [Mass/Vol] 58 mg/dL >40 [facility] Comment on above: The drugs N-Acetylcy steine and Metamizole may falsely depress this assay. Reference Range HDL <40 mg/dL Low HDL Cholesterol HDL >or= 60 mg/dL High HDL Cholesterol Immature granulocytes/100 WB C Auto (Bld)Ordered By: Poojamargarette Torojenifersophia on 02-28-2024 Immature granulocytes/100 WBC (Bld) 0.300 % 0.0-0.9 [facility] Comment on above: IG% - Immature Granu locytes (promyelocytes, myelocytes and metamyelocytes) > 1% indicates that a LEFT SHIFT is Present. Laboratory - Chemistry and C hemistry - challengeOrdered By: Poojamargarette Medel on 02-28-2024 AST [Catalytic activity/Vol] 15 U/L 15-37 [facility] Low density lipoprotein (LDL ) cholesterol measurementOrdered By: Poojasreekanthmahadmakenzie Torojenifersophia on 02-28-2024 Cholesterol in LDL [Mass/Vol] 67 mg/dL 0-130 [facility] Lymphocytes Auto (Unsp spec) [#/Vol]Ordered By: Poojasreekanthmahadmakenzie Torojenifersophia on 02-28-2024 Lymphocytes (Bld) [#/Vol] 1.75 10*3/uL 0.83-4.51 [facility] Lymphocytes/100 WBC Auto (Un sp spec)Ordered By: Jairon Medel on 02-28-2024 Lymphocytes/100 WBC (Bld) 27.3 % 19-41 [facility] MCV (mean corpuscular volume ) determinationOrdered By: Jairon Medel on 02-28-2024 MCV (RBC) [Entitic vol] 89.4 fL 81-99 [facility] Mean corpuscular hemoglobin (MCH) determinationOrdered By: Jairon Medel on 02-28-2024 MCH (RBC) [Entitic mass] 27.6 pg 27.0-32.0 [facility] Mean corpuscular hemoglobin concentration (MCHC) determinationOrdered By: Jairon Medel on 02-28-2024 MCHC (RBC) [Mass/Vol] 30.8 g/dL Low 32-36 [facility] Mean platelet volume determi nationOrdered By: Jairon Medel on 02-28-2024 Platelet mean volume (Bld) [Entitic vol] 9.6 fL 6.2-12.0 [facility] Monocyte percentageOrdered B y: Jairon Medel on 02-28-2024 Monocytes/100 WBC (Bld) 8.7 % 0-10 [facility] Neutrophil percentageOrdered By: Jairon Medel on 02-28-2024 Neutrophils/100 WBC (Bld) 60.6 % 47-70 [facility] Nucleated red blood cell per centageOrdered By: Jairon Medel on 02-28-2024 Nucleated RBC/100 WBC (Bld) [Ratio] 0 % 0-5 [facility] Platelet countOrdered By: Pooja Medel on 02-28-2024 Platelets (Bld) [#/Vol] 261 10*3/uL 150-450 [facility] Potassium measurementOrdered By: Jairon Medel on 02-28-2024 Potassium [Moles/Vol] 4.1 mmol/L 3.5-5.1 [facility] RBC Auto (Bld) [#/Vol]Ordere d By: Jairon Medel on 02-28-2024 RBC (Bld) [#/Vol] 3.59 10*6/uL Low 4.2-5.4 [facility] Serum anion gap measurementO rdered By: Jairon Medel on 02-28-2024 Anion gap [Moles/Vol] 4 mmol/L Low 5-15 [facility] Serum globulin measurementOr dered By: Jairon Medel on 02-28-2024 Globulin (S) [Mass/Vol] 2.9 g/dL 2.2-4.2 [facility] Serum or plasma alanine crane otransferase (ALT) measurementOrdered By: Jairon Medel on 02-28-2024 ALT [Catalytic activity/Vol] 17 U/L 13-56 [facility] Serum or plasma albumin krissy urement (mass/volume)Ordered By: Jairon Medel on 02-28-2024 Albumin [Mass/Vol] 2.8 g/dL Low 3.2-5.0 [facility] Serum or plasma alkaline luis sphatase measurementOrdered By: Jairon Medel on 02-28-2024 ALP [Catalytic activity/Vol] 63 U/L 45-117 [facility] Serum or plasma calcium krissy urement (mass/volume)Ordered By: Jairon Medel on 02-28-2024 Calcium [Mass/Vol] 9.6 mg/dL 8.5-10.1 [facility] Serum or plasma cholesterol measurement (mass/volume)Ordered By: Jairon Medel on 02-28-2024 Cholesterol [Mass/Vol] 134 mg/dL <200 [facility] Comment on above: <200 mg/dL Desirable 200-240 mg/dL Borderline >240 mg/dL High Risk Serum or plasma creatinine m easurement (mass/volume)Ordered By: Jairon Medel on 02-28-2024 Creatinine [Mass/Vol] 0.95 mg/dL 0.55-1.02 [facility] Comment on above: The validity of the calculated GFR & GFRAA in patients over 70 years has not been determined. Clinical correlation is essential. Serum or plasma urea nitroge n measurement (mass/volume)Ordered By: Jairon Medel on 01-20-2025 Urea nitrogen [Mass/Vol] 23 mg/dL High 7-18 [facility] Sodium levelOrdered By: Carrillo feliciano Cortezdorcas on 02-28-2024 Sodium [Moles/Vol] 143 mmol/L 136-145 [facility] Total proteinOrdered By: Masoud Medel on 02-28-2024 Protein [Mass/Vol] 5.7 g/dL Low 6.4-8.2 [facility] Triglycerides measurementOrd ered By: Jairon Cortezdorcas on 02-28-2024 Triglyceride [Mass/Vol] 43 mg/dL <199 [facility] Comment on above: The drugs N-Acetylcy steine and Metamizole may falsely depress this assay.Serum Triglycerides Reference Interval Normal <150 mg/dL Borderline high 150 - 199 mg/dL High 200 - 499 mg/dL Very High > or = 500 mg/dL Valproate levelOrdered By: Sophia taylor Cortezdorcas on 02-28-2024 Valproic Acid (Depakene) Level 26 ug/mL Low 50-100 [facility] Very low density lipoprotein (VLDL) cholesterol measurementOrdered By: Jairon Cortezdorcas on 02-28-2024 Very low density lipoprotein (VLDL) cholesterol measurement 9 mg/dL 5-40 [facility] VLDL Cholesterol 9 mg/dL 5-40 [facility] White blood cell (WBC) count Ordered By: Jairon Cortezdorcas on 02-28-2024 WBC (Bld) [#/Vol] 6.4 10*3/uL 4.4-11.0 [facility] .Auto Diffon 02-10-2024 Basophil, Absolute 0.1 10 3/mcL Normal 0.0-0.2 [facility] Comment on above: Performed By: #### B MP, MG, ANEU, ADIFF, CBC, GFR ####[address] [place], [place] [address] Basophils/100 WBC (Bld) 1.1 % Normal 0.0-2.5 [facility] Comment on above: Performed By: #### B MP, MG, ANEU, ADIFF, CBC, GFR ####[address] [place], [place] [address] Eosinophil, Absolute 0.1 10 3/mcL Normal 0.0-0.7 [facility] Comment on above: Performed By: #### B MP, MG, ANEU, ADIFF, CBC, GFR ####[address] [place], [place] [address] Eosinophils/100 WBC (Bld) 1.8 % Normal 0.0-7.0 [facility] Comment on above: Performed By: #### B MP, MG, ANEU, ADIFF, CBC, GFR ####[address] [place], [place] [address] Lymphocyte, Absolute 1.4 10 3/mcL Normal 0.9-4.3 [facility] Comment on above: Performed By: #### B MP, MG, ANEU, ADIFF, CBC, GFR ####[address] [place], [place] [address] Lymphocytes/100 WBC (Bld) 25.4 % Normal 20.0-40.0 [facility] Comment on above: Performed By: #### B MP, MG, ANEU, ADIFF, CBC, GFR ####[place] [address] [address] Monocyte, Absolute 0.4 10 3/mcL Normal 0.1-1.4 [facility] Comment on above: Performed By: #### B MP, MG, ANEU, ADIFF, CBC, GFR ####[place] [address] [place], [place] [address] Monocytes/100 WBC (Bld) 7.4 % Normal 2.0-13.0 [facility] Comment on above: Performed By: #### B MP, MG, ANEU, ADIFF, CBC, GFR ####[place] [address] [place], [place] [address] Neutrophils/100 WBC (Bld) 64.3 % Normal 50.0-75.0 [facility] Comment on above: Performed By: #### B MP, MG, ANEU, ADIFF, CBC, GFR ####[place] [address] [place], [place] [address] .GFRon 02-10-2024 GFR 73 ml/min/1.73sqm Normal [facility] Comment on above: Result Comment: [...] B MP, MG, ANEU, ADIFF, CBC, GFR ####[place] [address] [place], [place] [address] GFR Non- 60 ml/min/1.73sqm Normal [facility] Comment on above: Result Comment: [...] B MP, MG, ANEU, ADIFF, CBC, GFR ####[place] [address] [place], [place] [address] .NEUABSon 02-10-2024 Neutrophil, Absolute 3.7 10 3/mcL Normal 2.3-8.1 [facility] Comment on above: Performed By: #### B MP, MG, ANEU, ADIFF, CBC, GFR ####[address] [address] BMPon 02-10-2024 BUN/Creatinine Ratio 25 ratio Normal 7-27 [facility] Comment on above: Performed By: #### B MP, MG, ANEU, ADIFF, CBC, GFR ####[address] [place], [place] [address] Calcium [Mass/Vol] 10.0 mg/dL Normal 8.4-10.2 [facility] Comment on above: Performed By: #### B MP, MG, ANEU, ADIFF, CBC, GFR ####[place] [address] [address] Chloride [Moles/Vol] 107 mmol/L Normal 98-107 [facility] Comment on above: Performed By: #### B MP, MG, ANEU, ADIFF, CBC, GFR ####[address] [place] [address] CO2 [Moles/Vol] 30 mmol/L Normal 23-31 [facility] Comment on above: Performed By: #### B MP, MG, ANEU, ADIFF, CBC, GFR ####[address] [address] Creatinine [Mass/Vol] 0.89 mg/dL Normal 0.55-1.02 [facility] Comment on above: Result Comment: Test ing performed on Siemens Dimension EXL analyzer using a modified kinetic Dora technique. Performed By: #### B MP, MG, ANEU, ADIFF, CBC, GFR ####[address] [address] Electrolyte Balance 8.0 mEq/L Normal 4.0-15.0 [facility] Comment on above: Performed By: #### B MP, MG, ANEU, ADIFF, CBC, GFR ####[address] [place] [id number] Glucose [Mass/Vol] 111 mg/dL High 83-110 [facility] Comment on above: Performed By: #### B MP, MG, ANEU, ADIFF, CBC, GFR ####[address] [address] Potassium [Moles/Vol] 4.0 mmol/L Normal 3.5-5.1 [facility] Comment on above: Performed By: #### B MP, MG, ANEU, ADIFF, CBC, GFR ####[address] [address] Sodium [Moles/Vol] 145 mmol/L Normal 136-145 [facility] Comment on above: Performed By: #### B MP, MG, ANEU, ADIFF, CBC, GFR ####[address] [address] Urea nitrogen [Mass/Vol] 22 mg/dL High 7-18 [facility] Comment on above: Performed By: #### B MP, MG, ANEU, ADIFF, CBC, GFR ####[address] [address] CBCon 02-10-2024 Erythrocyte distribution width (RBC) [Ratio] 14.1 % Normal 11.5-15.5 [facility] Comment on above: Performed By: #### B MP, MG, ANEU, ADIFF, CBC, GFR ####[place] [address] Hematocrit (Bld) [Volume fraction] 33.2 % Low 34.0-46.0 [facility] Comment on above: Performed By: #### B MP, MG, ANEU, ADIFF, CBC, GFR ####[place] [address] Hgb 11.3 G/dL Low 12.0-16.0 [facility] Comment on above: Performed By: #### B MP, MG, ANEU, ADIFF, CBC, GFR ####[place] [address] MCH (RBC) [Entitic mass] 28.8 pg Normal 27.0-33.0 [facility] Comment on above: Performed By: #### B MP, MG, ANEU, ADIFF, CBC, GFR ####[address] [address] MCHC 34.1 G/dL Normal 32.0-36.0 [facility] Comment on above: Performed By: #### B MP, MG, ANEU, ADIFF, CBC, GFR ####[address] [address] [place], [place] [address] MCV (RBC) [Entitic vol] 84.5 fL Normal 80.0-99.0 [facility] Comment on above: Performed By: #### B MP, MG, ANEU, ADIFF, CBC, GFR ####[address] [place] [address] Platelet 272 10 3/mcL Normal 150-450 [facility] Comment on above: Performed By: #### B MP, MG, ANEU, ADIFF, CBC, GFR ####[address] [place] [address] Platelet mean volume (Bld) [Entitic vol] 7.7 fL Normal 6.6-10.5 [facility] Comment on above: Performed By: #### B MP, MG, ANEU, ADIFF, CBC, GFR ####[address] [address] [place] [address] RBC 3.93 10 6/mcL Low 4.10-5.30 [facility] Comment on above: Performed By: #### B MP, MG, ANEU, ADIFF, CBC, GFR ####[place] [address] [place] [address] WBC 5.7 10 3/mcL Normal 4.5-10.8 [facility] Comment on above: Performed By: #### B MP, MG, ANEU, ADIFF, CBC, GFR ####[place] [address] [place] [address] LABORATORYOrdered By: SYSTEM SYSTEM on 02-10-2024 Basophils [...] 02-10-2024 Magnesium [Mass/Vol] 1.7 mg/dL Low 1.8-2.4 [facility] Comment on above: Performed By: #### B MP, MG, ANEU, ADIFF, CBC, GFR ####[address] [place], [place] [address] .Auto Diffon 02-09-2024 Basophil, Absolute 0.1 10 3/mcL Normal 0.0-0.2 [facility] Comment on above: Performed By: #### B JEISON, MDW, GFR, ANEU, TROPHS, PBNP, CBC, ADIFF ####[address] [place], [place] [address] Basophils/100 WBC (Bld) 1.1 % Normal 0.0-2.5 [facility] Comment on above: Performed By: #### B MP, MDW, GFR, ANEU, TROPHS, PBNP, CBC, ADIFF ####[address] [place], [place] [address] Eosinophil, Absolute 0.1 10 3/mcL Normal 0.0-0.7 [facility] Comment on above: Performed By: #### B MP, MDW, GFR, ANEU, TROPHS, PBNP, CBC, ADIFF ####[address] [place], [place] [address] Eosinophils/100 WBC (Bld) 1.6 % Normal 0.0-7.0 [facility] Comment on above: Performed By: #### B MP, W, GFR, ANEU, TROPHS, PBNP, CBC, ADIFF ####[place] [address] [place], [place] [address] Lymphocyte, Absolute 2.2 10 3/mcL Normal 0.9-4.3 [facility] Comment on above: Performed By: #### B MP, MDW, GFR, ANEU, TROPHS, PBNP, CBC, ADIFF ####[facility] [place], [place] [address] Lymphocytes/100 WBC (Bld) 29.4 % Normal 20.0-40.0 [facility] Comment on above: Performed By: #### B JEISON, W, GFR, ANEU, TROPHS, PBNP, CBC, ADIFF ####[facility] [place], [place] [address] Monocyte, Absolute 0.7 10 3/mcL Normal 0.1-1.4 [facility] Comment on above: Performed By: #### B JEISON, W, GFR, ANEU, TROPHS, PBNP, CBC, ADIFF ####[facility] [place], [place] [address] Monocytes/100 WBC (Bld) 9.6 % Normal 2.0-13.0 [facility] Comment on above: Performed By: #### B JEISON, W, GFR, ANEU, TROPHS, PBNP, CBC, ADIFF ####[facility] [place], [place] [address] Neutrophils/100 WBC (Bld) 58.3 % Normal 50.0-75.0 [facility] Comment on above: Performed By: #### B MP, MDW, GFR, ANEU, TROPHS, PBNP, CBC, ADIFF ####[facility] [place], [place] [address] .GFRon 02-09-2024 GFR 67 ml/min/1.73sqm Normal [facility] Comment on above: Result Comment: [...] MDW, GFR, ANEU, TROPHS, PBNP, CBC, ADIFF ####[place] [address] [place], [place] [address] GFR Non- 55 ml/min/1.73sqm Normal [facility] Comment on above: Result Comment: [...] GFR, ANEU, TROPHS, PBNP, CBC, ADIFF ####[place] [address] [place], [place] [address] .MDWon 02-09-2024 Monocyte Distribution Width 17.09 Normal 0.00-20.00 [facility] Comment on above: Result Comment: For ED adult patients suspected of sepsis, MDW<=20.0 does not rule out sepsis or risk of sepsis Performed By: #### B MP, MDW, GFR, ANEU, TROPHS, PBNP, CBC, ADIFF ####[place] [address] [place], [place] [address] .NEUABSon 02-09-2024 Neutrophil, Absolute 4.4 10 3/mcL Normal 2.3-8.1 [facility] Comment on above: Performed By: #### B NAFISA MCHUGH, GFR, ANEU, TROPHS, PBNP, CBC, ADIFF ####[place] [address] [place], [place] [address] BMPon 02-09-2024 BUN/Creatinine Ratio 26 ratio Normal 7-27 [facility] Comment on above: Performed By: #### B NAFISA MCHUGH, GFR, ANEU, TROPHS, PBNP, CBC, ADIFF ####[place] [address] [place], [place] [address] Calcium [Mass/Vol] 10.4 mg/dL High 8.4-10.2 [facility] Comment on above: Performed By: #### B NAFISA MCHUGH, GFR, ANEU, TROPHS, PBNP, CBC, ADIFF ####[place] [address] [place], [place] [address] Chloride [Moles/Vol] 104 mmol/L Normal 98-107 [facility] Comment on above: Performed By: #### B NAFISA MCHUGH, GFR, ANEU, TROPHS, PBNP, CBC, ADIFF ####[place] [address] [place], [place] [address] CO2 [Moles/Vol] 30 mmol/L Normal 23-31 [facility] Comment on above: Performed By: #### B NAFISA MCHUGH, GFR, ANEU, TROPHS, PBNP, CBC, ADIFF ####[address] [address] Creatinine [Mass/Vol] 0.96 mg/dL Normal 0.55-1.02 [facility] Comment on above: Result Comment: Test ing performed on Siemens Dimension EXL analyzer using a modified kinetic Dora technique. Performed By: #### B NAFIAS MCHUGH, GFR, ANEU, TROPHS, PBNP, CBC, ADIFF ####[place] [address] [place], [place] [address] Electrolyte Balance 10.0 mEq/L Normal 4.0-15.0 [facility] Comment on above: Performed By: #### B JEISON, W, GFR, ANEU, TROPHS, PBNP, CBC, ADIFF ####[place] [address] [place], [place] [address] Glucose [Mass/Vol] 108 mg/dL Normal 83-110 [facility] Comment on above: Performed By: #### B JEISON, NAFISA, GFR, ANEU, TROPHS, PBNP, CBC, ADIFF ####[place] [address] [place], [place] [address] Potassium [Moles/Vol] 3.6 mmol/L Normal 3.5-5.1 [facility] Comment on above: Performed By: #### B JEISON, NAFISA, GFR, ANEU, TROPHS, PBNP, CBC, ADIFF ####[place] [address] [place], [place] [address] Sodium [Moles/Vol] 144 mmol/L Normal 136-145 [facility] Comment on above: Performed By: #### B NAFISA MCHUGH, GFR, ANEU, TROPHS, PBNP, CBC, ADIFF ####[place] [address] [place], [place] [address] Urea nitrogen [Mass/Vol] 25 mg/dL High 7-18 [facility] Comment on above: Performed By: #### B NAFISA MCHUGH, GFR, ANEU, TROPHS, PBNP, CBC, ADIFF ####[place] [address] [place], [place] [address] CBCon 02-09-2024 Erythrocyte distribution width (RBC) [Ratio] 14.0 % Normal 11.5-15.5 [facility] Comment on above: Performed By: #### B NAFISA MCHUGH, GFR, ANEU, TROPHS, PBNP, CBC, ADIFF ####[place] [address] [place], [place] [address] Hematocrit (Bld) [Volume fraction] 34.7 % Normal 34.0-46.0 [facility] Comment on above: Performed By: #### B MD JEISONW, GFR, ANEU, TROPHS, PBNP, CBC, ADIFF ####[place] [address] [place], [place] [address] Hgb 11.7 G/dL Low 12.0-16.0 [facility] Comment on above: Performed By: #### B NAFISA MCHUGH, GFR, ANEU, TROPHS, PBNP, CBC, ADIFF ####[place] [address] [place], [place] [address] MCH (RBC) [Entitic mass] 28.7 pg Normal 27.0-33.0 [facility] Comment on above: Performed By: #### B NAFISA MCHUGH, GFR, ANEU, TROPHS, PBNP, CBC, ADIFF ####[place] [address] [place], [place] [address] MCHC 33.7 G/dL Normal 32.0-36.0 [facility] Comment on above: Performed By: #### B NAFISA MCHUGH, GFR, ANEU, TROPHS, PBNP, CBC, ADIFF ####[place] [address] [place], [place] [address] MCV (RBC) [Entitic vol] 85.0 fL Normal 80.0-99.0 [facility] Comment on above: Performed By: #### B NAFISA MCHUGH, GFR, ANEU, TROPHS, PBNP, CBC, ADIFF ####[place] [address] [place], [place] [address] Platelet 266 10 3/mcL Normal 150-450 [facility] Comment on above: Performed By: #### B NAFISA MCHUGH, GFR, ANEU, TROPHS, PBNP, CBC, ADIFF ####[place] [address] [place], [place] [address] Platelet mean volume (Bld) [Entitic vol] 7.4 fL Normal 6.6-10.5 [facility] Comment on above: Performed By: #### B NAFISA MCHUGH, GFR, ANEU, TROPHS, PBNP, CBC, ADIFF ####[place] [address] [place], [place] [address] RBC 4.08 10 6/mcL Low 4.10-5.30 [facility] Comment on above: Performed By: #### B NAFISA MCHUGH, GFR, ANEU, TROPHS, PBNP, CBC, ADIFF ####[place] [address] [place], [place] [address] WBC 7.6 10 3/mcL Normal 4.5-10.8 [facility] Comment on above: Performed By: #### B JEISON, NAFISA, GFR, ANEU, TROPHS, PBNP, CBC, ADIFF ####[place] [address] [place], [place] [address] LABORATORYOrdered By: Addis Pelayo on 02-09-2024 Appearance [...] ng/L Male: 0-76 ng/L Testing performed on [employer] using a homogeneous sandwich chemiluminescent immunoassay based on [employer] technology. Urea nitrogen [Mass/Vol] 25 mg/dL High 7 - 18 mg/dL AO ADM SS Urea nitrogen/Creatinine [Mass ratio] 26 ratio Normal 7 - 27 ratio AO ADM SS WBC (Bld) [#/Vol] 7.6 103/mcL Normal 4.5 - 10.8 10^3/mcL AO Workflow SS PBNPon 02-09-2024 Natriuretic peptide B (Bld) [Mass/Vol] 3243 pg/mL High 0-450 [facility] Comment on above: Result Comment: NT-p roBNP results of less than 300 pg/mL effectively rules out acute congestive heart failure with 99% negative predictive value. Performed By: #### B MP, MDW, GFR, ANEU, TROPHS, PBNP, CBC, ADIFF ####[place] [address] TROPHSon 02-09-2024 High Sensitivity Troponin I 23 ng/L Normal 0-51 [facility] Comment on above: Result Comment: High Sensitive Troponin I Reference Ranges: Female: 0-51 ng/L Male: 0-76 ng/L Testing performed on [employer] using a homogeneous sandwich chemiluminescent immunoassay based on [employer] technology. Performed By: #### B MP, MDW, GFR, ANEU, TROPHS, PBNP, CBC, ADIFF ####[place] [address] [place] [id number] UAon 02-09-2024 Color (U) Yellow Normal [facility] Comment on above: Performed By: #### U A ####[place] [address] [place] [address] Glucose (U) [Mass/Vol] Negative Normal Negative [facility] Comment on above: Performed By: #### U A ####[place] [address] [place] [address] Ketones Ql (U) Negative Normal Negative [facility] Comment on above: Performed By: #### U A ####[place] [address] [place] [address] UA Appear Clear Normal Clear [facility] Comment on above: Performed By: #### U A ####[place] [address] [place] [address] UA Blood Negative Normal Negative [facility] Comment on above: Performed By: #### U A ####[place] [address] [place] [address] UA Leuk Est Negative Normal Negative [facility] Comment on above: Performed By: #### U A ####[place] [address] [place] [address] UA Nitrite Negative Normal Negative [facility] Comment on above: Performed By: #### U A ####[place] [address] [place] [address] UA pH 6.5 Normal 5.0 - 8.0 [facility] Comment on above: Performed By: #### U A ####[address] [address] UA Protein Negative Normal Negative [facility] Comment on above: Performed By: #### U A ####[place] [address] [place] [address] UA Spec Grav 1.015 Normal 1.015-1.025 [facility] Comment on above: Performed By: #### U A ####[place] [address] [place] [address] UA Specimen Type Void Normal [facility] Comment on above: Performed By: #### U A ####[place] [address] [place] [address] UA Urobilinogen 0.2 E.U./dL Normal 0.2-1.0 [facility] Comment on above: Performed By: #### U A ####[place] [address] [place] [address] Urobilinogen (U) [Mass/Vol] Negative Normal Negative [facility] Comment on above: Performed By: #### U A ####[place] [address] [place] [address] VALPRon 02-09-2024 LDose Valproic Acid: Unknown Normal [facility] Comment on above: Performed By: #### V ALPR ####[facility] [place] [address] Valproic Acid Lvl 30 mcg/mL Low 50-100 [facility] Comment on above: Performed By: #### V ALPR ####[facility] [place] [address] XR CHEST 1 VIEWon 02-09-2024 XR CHEST [...] Date: 02/09/2024 9:08:10 PM Ordering Provider: TRIXIE Geronimo [facility] .Urinalysis Microscopic (AO) on 01-21-2024 UA Amorphus 1+ /hpf Normal [facility] Comment on above: Performed By: #### U A, UAMICAO ####[facility] [place] [address] UA CA Ox Crystal 1+ /hpf Normal [facility] Comment on above: Performed By: #### U A, UAMICAO ####[place] [address] [place] [address] UA Mucous 2+ /hpf Normal [facility] Comment on above: Performed By: #### U A, UAMICAO ####[place] [address] UA RBC 0-5 Abnormal None Seen [facility] Comment on above: Performed By: #### U A, UAMICAO ####[facility] [place] [address] UA Squam Epithelial 0-5 Abnormal None Seen [facility] Comment on above: Performed By: #### U A, UAMICAO ####[place] [address] [place] [address] UA WBC 0-5 Abnormal None Seen [facility] Comment on above: Performed By: #### U A, UAMICAO ####[place] [address] [place] [address] LABORATORYOrdered By: Mao Nava on 01-21-2024 Appearance [...] SS UAon 01-21-2024 Color (U) Yellow Normal [facility] Comment on above: Performed By: #### U A UAMICAO ####[place] [address] [place], [place] [address] Glucose (U) [Mass/Vol] Negative Normal Negative [facility] Comment on above: Performed By: #### U A UAMICAO ####[place] [address] [place], [place] [address] Ketones Ql (U) Negative Normal Negative [facility] Comment on above: Performed By: #### U A UAMICAO ####[place] [address] [place], [place] [address] UA Appear Clear Normal Clear [facility] Comment on above: Performed By: #### U A, UAMICAO ####[place] [address] [place], [place] [address] UA Blood Negative Normal Negative [facility] Comment on above: Performed By: #### U A, UAMICAO ####[place] [address] [place] [address] UA Leuk Est Negative Normal Negative [facility] Comment on above: Performed By: #### U A, UAMICAO ####[place] [address] [place] [address] UA Nitrite Negative Normal Negative [facility] Comment on above: Performed By: #### U A, UAMICAO ####[place] [address] [place] [address] UA pH 6.0 Normal 5.0 - 8.0 [facility] Comment on above: Performed By: #### U A, UAMICAO ####[place] [address] [place] [address] UA Protein 30 mg/dL Normal Negative [facility] Comment on above: Performed By: #### U A, UAMICAO ####[place] [address] [place] [address] UA Spec Grav 1.020 Normal 1.015-1.025 [facility] Comment on above: Performed By: #### U A, UAMICAO ####[place] [address] [place] [address] UA Specimen Type Hua Catheter Normal [facility] Comment on above: Performed By: #### U A, UAMICAO ####[place] [address] [place] [address] UA Urobilinogen 0.2 E.U./dL Normal 0.2-1.0 [facility] Comment on above: Performed By: #### U A, UAMICAO ####[place] [address] [place] [address] Urobilinogen (U) [Mass/Vol] Negative Normal Negative [facility] Comment on above: Performed By: #### U KRISHNA Jeter ####[facility] [place], [place] [address] US BLADDERon 01-07-2024 US BLADDER ORIGINAL EXAMINATION: [...] 01/07/2024 11:24:46 AM Ordering Provider: LARRY Geronimo [facility] .GFRon 12-29-2023 GFR 54 ml/min/1.73sqm Normal [facility] Comment on above: Result Comment: [...] Performed By: #### G LINDA SPAULDING CAION ####[facility] [place], [place] [address] GFR Non- 44 ml/min/1.73sqm [facility] Comment on above: Result Comment: GFR [...] By: #### LINDA SOLIS CAION ####[place] [address] [place], [place] [address] BMPon 12-29-2023 BUN/Creatinine Ratio 20 ratio Normal 7-27 [facility] Comment on above: Performed By: #### LINDA SOLIS CAION ####[place] [address] [place], [place] [address] Calcium [Mass/Vol] 10.3 mg/dL High 8.4-10.2 [facility] Comment on above: Performed By: #### LINDA SOLIS CAION ####[place] [address] [place], [place] [address] Chloride [Moles/Vol] 104 mmol/L Normal 98-107 [facility] Comment on above: Performed By: #### LINDA SOLIS CAION ####[place] [address] [place], [place] [address] CO2 [Moles/Vol] 31 mmol/L Normal 23-31 [facility] Comment on above: Performed By: #### LINDA SOLIS CAION ####[place] [address] [place], [place] [address] Creatinine [Mass/Vol] 1.16 mg/dL High 0.55-1.02 [facility] Comment on above: Result Comment: Test ing performed on Siemens Dimension EXL analyzer using a modified kinetic Dora technique. Performed By: #### LINDA SOLIS CAION ####[place] [address] [place], [place] [address] Electrolyte Balance 7.0 mEq/L Normal 4.0-15.0 [facility] Comment on above: Performed By: #### LINDA SOLIS CAION ####[place] [address] [place], [place] [address] Glucose [Mass/Vol] 92 mg/dL Normal 83-110 [facility] Comment on above: Performed By: #### LINDA SLOIS CAION ####[address] [address] [place], [place] [address] Potassium [Moles/Vol] 4.2 mmol/L Normal 3.5-5.1 [facility] Comment on above: Performed By: #### LINDA SOLIS CAION ####[address] [address] [place], [place] [address] Sodium [Moles/Vol] 142 mmol/L Normal 136-145 [facility] Comment on above: Performed By: #### LINDA SOLIS CAION ####[address] [place], [place] [address] Urea nitrogen [Mass/Vol] 23 mg/dL High 7-18 [facility] Comment on above: Performed By: #### LINDA SOLIS CAION ####[address] [place], [place] [address] CAIONon 12-29-2023 Calcium Ionized 1.27 mmol/L Normal 1.12-1.32 [facility] Comment on above: Performed By: #### LINDA SOLIS CAION ####[place] [address] [place], [place] [address] LABORATORYOrdered By: SYSTEM SYSTEM on 12-29-2023 Calcium [...] 12/21/2023 4:21:17 PM Ordering Provider: LARRY Geronimo [facility] XR SPINE LUMBAR W/OBLIQUES 4 [...] 12/21/2023 4:34:05 PM Ordering Provider: LARRY Geronimo [facility] B12on 12-16-2023 Cobalamin (Vitamin B12) [Mass/Vol] 509 pg/mL Normal 211-911 [facility] Comment on above: Performed By: #### F ES, FERR ####[place] [address]#### B12, FOL ####[place] [address] FOLon 12-16-2023 Folate >48.00 High 5.38-24.00 [facility] Comment on above: Performed By: #### F ES, FERR ####[place] [address]#### B12, FOL ####[place] [address] .Auto Diffon 12-15-2023 Basophil, Absolute 0.1 10 3/mcL Normal 0.0-0.2 [facility] Comment on above: Performed By: #### C MP, ADIFF, CBC, GFR, PBNP, ANEU #### [address] [address] Basophils/100 WBC (Bld) 1.1 % Normal 0.0-2.5 [facility] Comment on above: Performed By: #### C MP, ADIFF, CBC, GFR, PBNP, ANEU #### [address] [address] Eosinophil, Absolute 0.1 10 3/mcL Normal 0.0-0.7 [facility] Comment on above: Performed By: #### C MP, ADIFF, CBC, GFR, PBNP, ANEU #### [address] [address] Eosinophils/100 WBC (Bld) 1.4 % Normal 0.0-7.0 [facility] Comment on above: Performed By: #### C MP, ADIFF, CBC, GFR, PBNP, ANEU #### [address] [address] Lymphocyte, Absolute 1.7 10 3/mcL Normal 0.9-4.3 [facility] Comment on above: Performed By: #### C MP, ADIFF, CBC, GFR, PBNP, ANEU #### [address] [address] Lymphocytes/100 WBC (Bld) 20.9 % Normal 20.0-40.0 [facility] Comment on above: Performed By: #### C MP, ADIFF, CBC, GFR, PBNP, ANEU #### [address] [address] Monocyte, Absolute 0.5 10 3/mcL Normal 0.1-1.4 [facility] Comment on above: Performed By: #### C MP, ADIFF, CBC, GFR, PBNP, ANEU #### [address] [address] Monocytes/100 WBC (Bld) 6.0 % Normal 2.0-13.0 [facility] Comment on above: Performed By: #### C MP, ADIFF, CBC, GFR, PBNP, ANEU #### [address] [address] Neutrophils/100 WBC (Bld) 70.6 % Normal 50.0-75.0 [facility] Comment on above: Performed By: #### C MP, ADIFF, CBC, GFR, PBNP, ANEU #### [address] [address] .GFRon 12-15-2023 GFR 62 ml/min/1.73sqm Normal [facility] Comment on above: Result Comment: [...] MP, ADIFF, CBC, GFR, PBNP, ANEU #### [address] [address] GFR Non- 52 ml/min/1.73sqm Normal [facility] Comment on above: Result Comment: [...] MP, ADIFF, CBC, GFR, PBNP, ANEU #### [address] [address] .NEUABSon 12-15-2023 Neutrophil, Absolute 5.8 10 3/mcL Normal 2.3-8.1 [facility] Comment on above: Performed By: #### C MP, ADIFF, CBC, GFR, PBNP, ANEU #### [address] [address] CBCon 12-15-2023 Erythrocyte distribution width (RBC) [Ratio] 14.2 % Normal 11.5-15.5 [facility] Comment on above: Performed By: #### C MP, ADIFF, CBC, GFR, PBNP, ANEU #### [address] [address] Hematocrit (Bld) [Volume fraction] 34.6 % Normal 34.0-46.0 [facility] Comment on above: Performed By: #### C MP, ADIFF, CBC, GFR, PBNP, ANEU #### [address] [address] Hgb 11.7 G/dL Low 12.0-16.0 [facility] Comment on above: Performed By: #### C MP, ADIFF, CBC, GFR, PBNP, ANEU #### [address] [address] MCH (RBC) [Entitic mass] 28.7 pg Normal 27.0-33.0 [facility] Comment on above: Performed By: #### C MP, ADIFF, CBC, GFR, PBNP, ANEU #### [address] [address] MCHC 33.9 G/dL Normal 32.0-36.0 [facility] Comment on above: Performed By: #### C MP, ADIFF, CBC, GFR, PBNP, ANEU #### [address] [address] MCV (RBC) [Entitic vol] 84.8 fL Normal 80.0-99.0 [facility] Comment on above: Performed By: #### C MP, ADIFF, CBC, GFR, PBNP, ANEU #### [address] [address] Platelet 363 10 3/mcL Normal 150-450 [facility] Comment on above: Performed By: #### C MP, ADIFF, CBC, GFR, PBNP, ANEU #### [address] [address] Platelet mean volume (Bld) [Entitic vol] 7.4 fL Normal 6.6-10.5 [facility] Comment on above: Performed By: #### C MP, ADIFF, CBC, GFR, PBNP, ANEU #### [address] [address] RBC 4.08 10 6/mcL Low 4.10-5.30 [facility] Comment on above: Performed By: #### C MP, ADIFF, CBC, GFR, PBNP, ANEU #### [address] [address] WBC 8.3 10 3/mcL Normal 4.5-10.8 [facility] Comment on above: Performed By: #### C MP, ADIFF, CBC, GFR, PBNP, ANEU #### [address] [address] CMPon 12-15-2023 Albumin Level 3.9 G/dL Normal 3.4-4.8 [facility] Comment on above: Performed By: #### C MP, ADIFF, CBC, GFR, PBNP, ANEU #### [address] [address] Albumin/Globulin [Mass ratio] 1.4 {ratio} Normal 1.1-2.5 [facility] Comment on above: Performed By: #### C MP, ADIFF, CBC, GFR, PBNP, ANEU #### [address] [address] ALP [Catalytic activity/Vol] 72 U/L Normal 40-135 [facility] Comment on above: Performed By: #### C MP, ADIFF, CBC, GFR, PBNP, ANEU #### [address] [address] ALT [Catalytic activity/Vol] 26 U/L Normal 14-59 [facility] Comment on above: Performed By: #### C MP, ADIFF, CBC, GFR, PBNP, ANEU #### [address] [address] AST [Catalytic activity/Vol] 18 U/L Normal 10-40 [facility] Comment on above: Performed By: #### C MP, ADIFF, CBC, GFR, PBNP, ANEU #### [address] [address] Bili Total 0.4 mg/dL Normal 0.2-1.0 [facility] Comment on above: Result Comment: Use of this assay is not recommended for patients undergoing treatment with eltrombopag due to the potential for falsely elevated results. Performed By: #### C MP, ADIFF, CBC, GFR, PBNP, ANEU #### [address] [address] BUN/Creatinine Ratio 20 ratio Normal 7-27 [facility] Comment on above: Performed By: #### C MP, ADIFF, CBC, GFR, PBNP, ANEU #### [address] [address] Calcium [Mass/Vol] 10.8 mg/dL High 8.4-10.2 [facility] Comment on above: Performed By: #### C MP, ADIFF, CBC, GFR, PBNP, ANEU #### [address] [address] Chloride [Moles/Vol] 104 mmol/L Normal 98-107 [facility] Comment on above: Performed By: #### C MP, ADIFF, CBC, GFR, PBNP, ANEU #### [address] [address] CO2 [Moles/Vol] 30 mmol/L Normal 23-31 [facility] Comment on above: Performed By: #### C MP, ADIFF, CBC, GFR, PBNP, ANEU #### [address] [address] Creatinine [Mass/Vol] 1.02 mg/dL Normal 0.55-1.02 [facility] Comment on above: Result Comment: Test ing performed on [employer] Dimension EXL analyzer using a modified kinetic Dora technique. Performed By: #### C MP, ADIFF, CBC, GFR, PBNP, ANEU #### [address] [address] Electrolyte Balance 7.0 mEq/L Normal 4.0-15.0 [facility] Comment on above: Performed By: #### C MP, ADIFF, CBC, GFR, PBNP, ANEU #### [address] [address] Globulin 2.8 G/dL Normal [facility] Comment on above: Performed By: #### C MP, ADIFF, CBC, GFR, PBNP, ANEU #### [address] [address] Glucose [Mass/Vol] 105 mg/dL Normal 83-110 [facility] Comment on above: Performed By: #### C MP, ADIFF, CBC, GFR, PBNP, ANEU #### [address] [address] Potassium [Moles/Vol] 4.2 mmol/L Normal 3.5-5.1 [facility] Comment on above: Performed By: #### C MP, ADIFF, CBC, GFR, PBNP, ANEU #### [address] [address] Sodium [Moles/Vol] 141 mmol/L Normal 136-145 [facility] Comment on above: Performed By: #### C MP, ADIFF, CBC, GFR, PBNP, ANEU #### [address] [address] Total Protein 6.7 G/dL Normal 6.4-8.2 [facility] Comment on above: Performed By: #### C MP, ADIFF, CBC, GFR, PBNP, ANEU #### [address] [address] Urea nitrogen [Mass/Vol] 20 mg/dL High 7-18 [facility] Comment on above: Performed By: #### C MP, ADIFF, CBC, GFR, PBNP, ANEU #### [address] [address] Lucretia 12-15-2023 Ferritin [Mass/Vol] 197.0 ng/mL Normal 8.0-252.0 [facility] Comment on above: Performed By: #### F GENE REMY ####[address] [place], [place] [address]#### B12, FOL ####[place] [address] FESon 12-15-2023 Iron [Mass/Vol] 44 ug/dL Low 50-170 [facility] Comment on above: Performed By: #### F ES, FERR ####[place] [address] [address]#### B12, FOL ####[facility] [place] [address] Iron Sat 15 % Normal [facility] Comment on above: Performed By: #### F ES, FERR ####[place] [place] [address]#### B12, FOL ####[place] [address] TIBC 300 mcg/dL Normal 250-450 [facility] Comment on above: Performed By: #### F ES, FERR ####[place] [address]#### B12, FOL ####[place] [address] LABORATORYOrdered By: SYSTEM SYSTEM on 12-15-2023 Albumin [...] Culture Urine No growth at 48 hours. [facility] PBNPon 12-15-2023 Natriuretic peptide B (Bld) [Mass/Vol] 1968 pg/mL High 0-450 [facility] Comment on above: Result Comment: NT-p roBNP results of less than 300 pg/mL effectively rules out acute congestive heart failure with 99% negative predictive value. Performed By: #### C MP, ADIFF, CBC, GFR, PBNP, ANEU ####[address] [place], [place] [address] LABORATORYOrdered By: Domingo Masterson on 12-09-2023 Appearance [...] SS UAon 12-09-2023 Color (U) Yellow Normal [facility] Comment on above: Performed By: #### U A ####[address] [place], [place] [address] Glucose (U) [Mass/Vol] Negative Normal Negative [facility] Comment on above: Performed By: #### U A ####[address] [place], [place] [address] Ketones Ql (U) Negative Normal Negative [facility] Comment on above: Performed By: #### U A ####[address] [place], [place] [address] UA Appear Clear Normal Clear [facility] Comment on above: Performed By: #### U A ####[address] [place], [place] [address] UA Blood Negative Normal Negative [facility] Comment on above: Performed By: #### U A ####[address] [place] [address] UA Leuk Est Negative Normal Negative [facility] Comment on above: Performed By: #### U A ####[address] [place] [address] UA Nitrite Negative Normal Negative [facility] Comment on above: Performed By: #### U A ####[address] [place] [address] UA pH 7.5 Normal 5.0 - 8.0 [facility] Comment on above: Performed By: #### U A ####[address] [place] [address] UA Protein Negative Normal Negative [facility] Comment on above: Performed By: #### U A ####[place] [address] [address] UA Spec Grav 1.020 Normal 1.015-1.025 [facility] Comment on above: Performed By: #### U A ####[address] [place] [address] UA Specimen Type Clean Catch Normal [facility] Comment on above: Performed By: #### U A ####[address] [place] [address] UA Urobilinogen 0.2 E.U./dL Normal 0.2-1.0 [facility] Comment on above: Performed By: #### U A ####[address] [place] [address] Urobilinogen (U) [Mass/Vol] Negative Normal Negative [facility] Comment on above: Performed By: #### U A ####[address] [place] [address] XR HIP RIGHT W/PELVIS 4 VIEW Son [...] 11/29/2023 11:51:51 AM Ordering Provider: SONNY STAHL [facility] .GFRon 07-08-2023 GFR 63 ml/min/1.73sqm Normal [facility] ([place]) Comment on above: Result Comment: GFR Population [...] ANEU, CBC, ADIFF, BMP #### [place] [id number] GFR Non- 52 ml/min/1.73sqm Normal [facility] ([place]) Comment on above: Result Comment: GFR Population [...] FR, A1C, ANEU, CBC, ADIFF, BMP #### [address] [address] BMPon 07-08-2023 BUN/Creatinine Ratio 19 ratio Normal 7-27 [facility] ([place]) Comment on above: Performed By: #### G FR, A1C, ANEU, CBC, ADIFF, BMP #### [address] [address] Calcium [Mass/Vol] 9.6 mg/dL Normal 8.4-10.2 [facility] ([place]) Comment on above: Performed By: #### G FR, A1C, ANEU, CBC, ADIFF, BMP #### [address] [address] Chloride [Moles/Vol] 106 mmol/L Normal 98-107 [facility] ([place]) Comment on above: Performed By: #### G FR, A1C, ANEU, CBC, ADIFF, BMP #### [address] [address] CO2 [Moles/Vol] 29 mmol/L Normal 23-31 [facility] ([place]) Comment on above: Performed By: #### G FR, A1C, ANEU, CBC, ADIFF, BMP #### [address] [address] Creatinine [Mass/Vol] 1.02 mg/dL Normal 0.55-1.02 [facility] ([place]) Comment on above: Performed By: #### G FR, A1C, ANEU, CBC, ADIFF, BMP #### [address] [address] Electrolyte Balance 9.0 mEq/L Normal 4.0-15.0 [facility] ([place]) Comment on above: Performed By: #### G FR, A1C, ANEU, CBC, ADIFF, BMP #### [address] [address] Glucose [Mass/Vol] 118 mg/dL High -110 [facility] ([place]) Comment on above: Performed By: #### G FR, A1C, ANEU, CBC, ADIFF, BMP #### [place] [address] [place], [place] [address] Potassium [Moles/Vol] 3.7 mmol/L Normal 3.5-5.1 [facility] ([place]) Comment on above: Performed By: #### G FR, A1C, ANEU, CBC, ADIFF, BMP #### [place] [address] [place], [place] [address] Sodium [Moles/Vol] 144 mmol/L Normal 136-145 [facility] ([place]) Comment on above: Performed By: #### G FR, A1C, ANEU, CBC, ADIFF, BMP #### [place] [address] [place], [place] [address] Urea nitrogen [Mass/Vol] 19 mg/dL High 7-18 [facility] ([place]) Comment on above: Performed By: #### G FR, A1C, ANEU, CBC, ADIFF, BMP #### [address] [address] LABORATORYOrdered By: SYSTEM SYSTEM on 07-08-2023 Calcium [...] AM Ordering Provider: MAHAD Geronimo [facility] ([place]) METon 04-14-2023 Methylmalonic Acid 340 nmol/L Normal 0-378 [facility]) Comment on above: Result Comment: This test was developed and its performance characteristics determined by [facility]. It has not been cleared or approved by the Food and Drug Administration. Performed At: [address] [id number] Hima Lieberman MD Ph:[phone] Performed By: #### G FR, A1C, ANEU, CBC, ADIFF, BMP #### [address] [address] B12on 04-07-2023 Cobalamin (Vitamin B12) [Mass/Vol] 600 pg/mL Normal 211-911 [facility]) Comment on above: Performed By: #### F OL, B12 #### [facility] [address] [place] [address] #### FT4, [id number], TSH #### [address] [address] FOLon 04-07-2023 Folate >48.00 High 5.38-24.00 [facility] ([place]) Comment on above: Performed By: #### F OL, B12 #### [place] [address] #### FT4, 069694, TSH #### [address] [address] FT4on 04-07-2023 Free T4 [Mass/Vol] 0.99 ng/dL Normal 0.76-1.46 [facility] ([place]) Comment on above: Performed By: #### F OL, B12 #### [place] [address] #### FT4, [id number], TSH #### [address] [address] LABORATORYOrdered By: SYSTEM SYSTEM on 04-07-2023 Cobalamin [...] Qn 1.65 m[IU]/L Normal 0.36-3.74 [facility] ([place]) Comment on above: Performed By: #### F OL, B12 #### [place] [address] #### FT4, [id number], TSH #### [address] [address] .Auto Diffon 03-10-2023 Basophil, Absolute 0.1 10 3/mcL Normal 0.0-0.2 [facility] ([place]) Comment on above: Performed By: #### G FR, A1C, ANEU, CBC, ADIFF, BMP #### [address] [address] Basophils/100 WBC (Bld) 1.2 % Normal 0.0-2.5 [facility] ([place]) Comment on above: Performed By: #### G FR, A1C, ANEU, CBC, ADIFF, BMP #### [address] [address] Eosinophil, Absolute 0.1 10 3/mcL Normal 0.0-0.4 [facility] ([place]) Comment on above: Performed By: #### G FR, A1C, ANEU, CBC, ADIFF, BMP #### [address] [address] Eosinophils/100 WBC (Bld) 1.6 % Normal 0.0-7.0 [facility] ([place]) Comment on above: Performed By: #### G FR, A1C, ANEU, CBC, ADIFF, BMP #### [address] [address] Lymphocyte, Absolute 1.9 10 3/mcL Normal 0.8-3.9 [facility] ([place]) Comment on above: Performed By: #### G FR, A1C, ANEU, CBC, ADIFF, BMP #### [address] [address] Lymphocytes/100 WBC (Bld) 23.7 % Normal 10.0-50.0 [facility] ([place]) Comment on above: Performed By: #### G FR, A1C, ANEU, CBC, ADIFF, BMP #### [address] [address] Monocyte, Absolute 0.6 10 3/mcL Normal 0.2-1.0 [facility] ([place]) Comment on above: Performed By: #### G FR, A1C, ANEU, CBC, ADIFF, BMP #### [address] [address] Monocytes/100 WBC (Bld) 7.8 % Normal 1.7-13.0 [facility] ([place]) Comment on above: Performed By: #### G FR, A1C, ANEU, CBC, ADIFF, BMP #### [address] [address] Neutrophils/100 WBC (Bld) 65.7 % Normal 37.0-80.0 [facility] ([place]) Comment on above: Performed By: #### G FR, A1C, ANEU, CBC, ADIFF, BMP #### [address] [address] .GFRon 03-10-2023 GFR 63 ml/min/1.73sqm Normal [facility] ([place]) Comment on above: Result Comment: GFR Population [...] FR, A1C, ANEU, CBC, ADIFF, BMP #### [address] [address] GFR Non- 52 ml/min/1.73sqm Normal [facility] ([place]) Comment on above: Result Comment: GFR Population [...] FR, A1C, ANEU, CBC, ADIFF, BMP #### [address] [address] .NEUABSon 03-10-2023 Neutrophil, Absolute 5.2 10 3/mcL Normal 2.9-6.2 [facility] ([place]) Comment on above: Performed By: #### G FR, A1C, ANEU, CBC, ADIFF, BMP #### [place] [id number] A1Con 03-10-2023 HbA1c (Bld) [Mass fraction] 5.6 % Normal 4.3-6.4 [facility] ([place]) Comment on above: Performed By: #### G FR, A1C, ANEU, CBC, ADIFF, BMP #### [place] [address] CBCon 03-10-2023 Erythrocyte distribution width (RBC) [Ratio] 14.7 % High 11.5-14.5 [facility] ([place]) Comment on above: Performed By: #### G FR, A1C, ANEU, CBC, ADIFF, BMP #### [place] [address] Hematocrit (Bld) [Volume fraction] 35.6 % Low 37.0-47.0 [facility] ([place]) Comment on above: Performed By: #### G FR, A1C, ANEU, CBC, ADIFF, BMP #### [place] [id number] Hgb 12.1 G/dL Normal 12.0-16.0 [facility] ([place]) Comment on above: Performed By: #### G FR, A1C, ANEU, CBC, ADIFF, BMP #### [place] [address] MCH (RBC) [Entitic mass] 27.8 pg Normal 27.0-31.2 [facility] ([place]) Comment on above: Performed By: #### G FR, A1C, ANEU, CBC, ADIFF, BMP #### [place] [address] MCHC 34.1 G/dL Normal 33.0-37.0 [facility] ([place]) Comment on above: Performed By: #### G FR, A1C, ANEU, CBC, ADIFF, BMP #### [address] [address] MCV (RBC) [Entitic vol] 81.7 fL Normal 80.0-94.0 A [facility] ([place]) Comment on above: Performed By: #### G FR, A1C, ANEU, CBC, ADIFF, BMP #### [address] [address] Platelet 300 10 3/mcL Normal 130-400 [facility] ([place]) Comment on above: Performed By: #### G FR, A1C, ANEU, CBC, ADIFF, BMP #### [address] [address] Platelet mean volume (Bld) [Entitic vol] 8.0 fL Normal 7.4-10.4 [facility] ([place]) Comment on above: Performed By: #### G FR, A1C, ANEU, CBC, ADIFF, BMP #### [address] [address] RBC 4.35 10 6/mcL Normal 4.20-5.40 [facility] ([place]) Comment on above: Performed By: #### G FR, A1C, ANEU, CBC, ADIFF, BMP #### [address] [address] WBC 8.0 10 3/mcL Normal 4.6-10.8 [facility] ([place]) Comment on above: Performed By: #### G FR, A1C, ANEU, CBC, ADIFF, BMP #### [address] [address] CMPon 03-10-2023 Chloride [Moles/Vol] 102 mmol/L Normal 98-107 [facility] ([place]) Comment on above: Performed By: #### G FR, A1C, ANEU, CBC, ADIFF, BMP #### [address] [address] Electrolyte Balance 10.0 mEq/L Normal 4.0-15.0 [facility] ([place]) Comment on above: Performed By: #### G FR, A1C, ANEU, CBC, ADIFF, BMP #### [address] [address] Potassium [Moles/Vol] 4.3 mmol/L Normal 3.5-5.1 [facility] ([place]) Comment on above: Performed By: #### G FR, A1C, ANEU, CBC, ADIFF, BMP #### [address] [address] Sodium [Moles/Vol] 141 mmol/L Normal 136-145 [facility] ([place]) Comment on above: Performed By: #### G FR, A1C, ANEU, CBC, ADIFF, BMP #### [address] [address] Albumin Level 3.7 G/dL Normal 3.4-4.8 [facility] ([place]) Comment on above: Performed By: #### G FR, A1C, ANEU, CBC, ADIFF, BMP #### [address] [address] Albumin/Globulin [Mass ratio] 1.1 {ratio} Normal 1.1-2.5 [facility] ([place]) Comment on above: Performed By: #### G FR, A1C, ANEU, CBC, ADIFF, BMP #### [address] [address] ALP [Catalytic activity/Vol] 79 U/L Normal 40-135 [facility] ([place]) Comment on above: Performed By: #### G FR, A1C, ANEU, CBC, ADIFF, BMP #### [address] [address] ALT [Catalytic activity/Vol] 24 U/L Normal 14-59 [facility] ([place]) Comment on above: Performed By: #### G FR, A1C, ANEU, CBC, ADIFF, BMP #### [address] [address] AST [Catalytic activity/Vol] 12 U/L Normal 10-40 [facility] ([place]) Comment on above: Performed By: #### G FR, A1C, ANEU, CBC, ADIFF, BMP #### [address] [address] Bili Total 0.3 mg/dL Normal 0.2-1.0 [facility] ([place]) Comment on above: Result Comment: Use of this assay is not recommended for patients undergoing treatment with eltrombopag due to the potential for falsely elevated results. Performed By: #### G FR, A1C, ANEU, CBC, ADIFF, BMP #### [address] [address] BUN/Creatinine Ratio 25 ratio Normal 7-27 [facility] ([place]) Comment on above: Performed By: #### G FR, A1C, ANEU, CBC, ADIFF, BMP #### [address] [address] Calcium [Mass/Vol] 10.1 mg/dL Normal 8.4-10.2 [facility] ([place]) Comment on above: Performed By: #### G FR, A1C, ANEU, CBC, ADIFF, BMP #### [address] [address] CO2 [Moles/Vol] 29 mmol/L Normal 23-31 [facility] ([place]) Comment on above: Performed By: #### G FR, A1C, ANEU, CBC, ADIFF, BMP #### [address] [address] Creatinine [Mass/Vol] 1.02 mg/dL Normal 0.55-1.02 [facility] ([place]) Comment on above: Performed By: #### G FR, A1C, ANEU, CBC, ADIFF, BMP #### [address] [address] Globulin 3.3 G/dL Normal [facility] ([place]) Comment on above: Performed By: #### G FR, A1C, ANEU, CBC, ADIFF, BMP #### [address] [address] Glucose [Mass/Vol] 118 mg/dL High 83-110 [facility] ([place]) Comment on above: Performed By: #### G FR, A1C, ANEU, CBC, ADIFF, BMP #### [address] [address] Total Protein 7.0 G/dL Normal 6.4-8.2 [facility] ([place]) Comment on above: Performed By: #### G FR, A1C, ANEU, CBC, ADIFF, BMP #### [address] [address] Urea nitrogen [Mass/Vol] 26 mg/dL High 7-18 [facility] ([place]) Comment on above: Performed By: #### G FR, A1C, ANEU, CBC, ADIFF, BMP #### [address] [address] LIPIDon 03-10-2023 Cholesterol [Mass/Vol] 214 mg/dL High 0-200 [facility] ([place]) Comment on above: Result Comment: Chol esterol Reference Interval: Less than 200 Desirable 200-239 Borderline high risk 240 and above High risk Performed By: #### G FR, A1C, ANEU, CBC, ADIFF, BMP #### [address] [address] Cholesterol in HDL [Mass/Vol] 62 mg/dL High 40-60 [facility] ([place]) Comment on above: Performed By: #### G FR, A1C, ANEU, CBC, ADIFF, BMP #### [address] [address] Cholesterol in LDL [Mass/Vol] 111 mg/dL Normal 0-130 [facility] ([place]) Comment on above: Performed By: #### G FR, A1C, ANEU, CBC, ADIFF, BMP #### [address] [address] Triglyceride [Mass/Vol] 205 mg/dL High 0-150 [facility] ([place]) Comment on above: Result Comment: Trig lyceride Reference Interval: Less than 150 Normal 150-199 Borderline high risk 200-499 High risk 500 or higher Very high risk Performed By: #### G FR, A1C, ANEU, CBC, ADIFF, BMP #### [address] [address] PHOSon 03-10-2023 Phosphate [Mass/Vol] 3.2 mg/dL Normal 2.3-4.1 [facility] ([place]) Comment on above: Performed By: #### G FR, A1C, ANEU, CBC, ADIFF, BMP #### [address] [address] PTHon 03-10-2023 PTH, Intact 78.2 pg/mL Normal 18.5-88.0 [facility] ([place]) Comment on above: Performed By: #### G FR, A1C, ANEU, CBC, ADIFF, BMP #### [address] [address] VIDHon 03-10-2023 Vit. D 25-Hydroxy 32.1 ng/mL Normal [facility] ([place]) Comment on above: Result Comment: Inte rpretive Values Based on Total 25(OH) Vitamin D: Deficient <20 ng/mL Insufficient 20 - <30 ng/mL Sufficient 30-100 ng/mL Performed By: #### G FR, A1C, ANEU, CBC, ADIFF, BMP #### [address] [address] BD BONE DENSITY DEXA AXIAL S KELETONon [...] AM Ordering Provider: LARRY Geronimo [facility] ([place]) .Auto Diffon 09-16-2022 Basophil, Absolute 0.1 10 3/mcL Normal 0.0-0.2 [facility] ([place]) Comment on above: Performed By: #### G FR, A1C, ANEU, CBC, ADIFF, BMP #### [address] [address] Basophils/100 WBC (Bld) 0.8 % Normal 0.0-2.5 A [facility] ([place]) Comment on above: Performed By: #### G FR, A1C, ANEU, CBC, ADIFF, BMP #### [address] [address] Eosinophil, Absolute 0.2 10 3/mcL Normal 0.0-0.4 [facility] ([place]) Comment on above: Performed By: #### G FR, A1C, ANEU, CBC, ADIFF, BMP #### [address] [address] Eosinophils/100 WBC (Bld) 2.1 % Normal 0.0-7.0 [facility] ([place]) Comment on above: Performed By: #### G FR, A1C, ANEU, CBC, ADIFF, BMP #### [address] [address] Lymphocyte, Absolute 2.0 10 3/mcL Normal 0.8-3.9 [facility] ([place]) Comment on above: Performed By: #### G FR, A1C, ANEU, CBC, ADIFF, BMP #### [address] [address] Lymphocytes/100 WBC (Bld) 22.9 % Normal 10.0-50.0 [facility] ([place]) Comment on above: Performed By: #### G FR, A1C, ANEU, CBC, ADIFF, BMP #### [address] [address] Monocyte, Absolute 0.5 10 3/mcL Normal 0.2-1.0 [facility] ([place]) Comment on above: Performed By: #### G FR, A1C, ANEU, CBC, ADIFF, BMP #### [address] [address] Monocytes/100 WBC (Bld) 6.4 % Normal 1.7-13.0 A [facility] ([place]) Comment on above: Performed By: #### G FR, A1C, ANEU, CBC, ADIFF, BMP #### [address] [address] Neutrophils/100 WBC (Bld) 67.8 % Normal 37.0-80.0 [facility] ([place]) Comment on above: Performed By: #### G FR, A1C, ANEU, CBC, ADIFF, BMP #### [address] [address] .GFRon 09-16-2022 GFR Non- 48 ml/min/1.73sqm Normal [facility] ([place]) Comment on above: Result Comment: GFR Population [...] FR, A1C, ANEU, CBC, ADIFF, BMP #### [address] [address] GFR 59 ml/min/1.73sqm Normal [facility] ([place]) Comment on above: Result Comment: GFR Population [...] FR, A1C, ANEU, CBC, ADIFF, BMP #### [address] [address] .NEUABSon 09-16-2022 Neutrophil, Absolute 5.8 10 3/mcL Normal 2.9-6.2 [facility] ([place]) Comment on above: Performed By: #### G FR, A1C, ANEU, CBC, ADIFF, BMP #### [address] [address] A1Con 09-16-2022 HbA1c (Bld) [Mass fraction] 5.7 % Normal 4.3-6.4 [facility] ([place]) Comment on above: Performed By: #### G FR, A1C, ANEU, CBC, ADIFF, BMP #### [address] [address] BMPon 09-16-2022 BUN/Creatinine Ratio 27 ratio Normal 7-27 [facility] ([place]) Comment on above: Performed By: #### G FR, A1C, ANEU, CBC, ADIFF, BMP #### [address] [address] Calcium [Mass/Vol] 9.8 mg/dL Normal 8.4-10.2 [facility] ([place]) Comment on above: Performed By: #### G FR, A1C, ANEU, CBC, ADIFF, BMP #### [address] [address] Chloride [Moles/Vol] 106 mmol/L Normal 98-107 [facility] ([place]) Comment on above: Performed By: #### G FR, A1C, ANEU, CBC, ADIFF, BMP #### [address] [address] CO2 [Moles/Vol] 29 mmol/L Normal 23-31 [facility] ([place]) Comment on above: Performed By: #### G FR, A1C, ANEU, CBC, ADIFF, BMP #### [address] [address] Creatinine [Mass/Vol] 1.08 mg/dL High 0.55-1.02 [facility] ([place]) Comment on above: Performed By: #### G FR, A1C, ANEU, CBC, ADIFF, BMP #### [address] [address] Electrolyte Balance 8.0 mEq/L Normal 4.0-15.0 [facility] ([place]) Comment on above: Performed By: #### G FR, A1C, ANEU, CBC, ADIFF, BMP #### [address] [address] Glucose [Mass/Vol] 125 mg/dL High 83-110 [facility] ([place]) Comment on above: Performed By: #### G FR, A1C, ANEU, CBC, ADIFF, BMP #### [address] [address] Potassium [Moles/Vol] 4.5 mmol/L Normal 3.5-5.1 [facility] ([place]) Comment on above: Performed By: #### G FR, A1C, ANEU, CBC, ADIFF, BMP #### [address] [address] Sodium [Moles/Vol] 143 mmol/L Normal 136-145 [facility] ([place]) Comment on above: Performed By: #### G FR, A1C, ANEU, CBC, ADIFF, BMP #### [address] [address] Urea nitrogen [Mass/Vol] 29 mg/dL High 7-18 [facility] ([place]) Comment on above: Performed By: #### G FR, A1C, ANEU, CBC, ADIFF, BMP #### [address] [address] CBCon 09-16-2022 Erythrocyte distribution width (RBC) [Ratio] 14.6 % High 11.5-14.5 [facility] ([place]) Comment on above: Performed By: #### G FR, A1C, ANEU, CBC, ADIFF, BMP #### [address] [address] Hematocrit (Bld) [Volume fraction] 33.9 % Low 37.0-47.0 [facility] ([place]) Comment on above: Performed By: #### G FR, A1C, ANEU, CBC, ADIFF, BMP #### [address] [address] Hgb 11.2 G/dL Low 12.0-16.0 [facility] ([place]) Comment on above: Performed By: #### G FR, A1C, ANEU, CBC, ADIFF, BMP #### [address] [address] MCH (RBC) [Entitic mass] 27.0 pg Normal 27.0-31.2 [facility] ([place]) Comment on above: Performed By: #### G FR, A1C, ANEU, CBC, ADIFF, BMP #### [address] [address] MCHC 33.1 G/dL Normal 33.0-37.0 [facility] ([place]) Comment on above: Performed By: #### G FR, A1C, ANEU, CBC, ADIFF, BMP #### [address] [address] MCV (RBC) [Entitic vol] 81.6 fL Normal 80.0-94.0 [facility] ([place]) Comment on above: Performed By: #### G FR, A1C, ANEU, CBC, ADIFF, BMP #### [address] [address] Platelet 275 10 3/mcL Normal 130-400 [facility] ([place]) Comment on above: Performed By: #### G FR, A1C, ANEU, CBC, ADIFF, BMP #### [address] [address] Platelet mean volume (Bld) [Entitic vol] 8.2 fL Normal 7.4-10.4 [facility] ([place]) Comment on above: Performed By: #### G FR, A1C, ANEU, CBC, ADIFF, BMP #### [address] [address] RBC 4.15 10 6/mcL Low 4.20-5.40 [facility] ([place]) Comment on above: Performed By: #### G FR, A1C, ANEU, CBC, ADIFF, BMP #### [address] [address] WBC 8.5 10 3/mcL Normal 4.6-10.8 [facility] ([place]) Comment on above: Performed By: #### G FR, A1C, ANEU, CBC, ADIFF, BMP #### [address] [address] LABORATORYOrdered By: SYSTEM SYSTEM on 06-19-2022 Basophils [...] SS CNPNon 06-03-2022 CNPN Telephone (GENSWS) SHACT ([id number]) 1940 F Date Time Provider Department 06/03/22 PAULA ALANIZ During your visit today, we recorded the following information about you: Brenton Jennings RN 06/03/2022 11:29 AM Signed Received a request from [facility] for all of Ct's left breast cancer treatment medical records. Faxed the request to medical records on [facility], fax confirmation sheet received. Brenton Jennings RN [...] Encounter Status:Closed by BRENTON JENNINGS on 06/03/22 [facility] LABORATORYOrdered By: SYSTEM SYSTEM on 04-14-2022 [...] CNOV Office Visit (TONYA ) CT DALTON ([id number]) 1940 F Date Time Provider Department 04/06/22 [...] Last Colonoscopy: over 10+ years ago MATILDE Lselie MD 04/08/2022 1:[address] [place] [...] needle core breast biopsies on 03/23/2022 at [facility]. Findings of fat necrosis, inflammation and [...] once daily. (more content not included)... Normal [facility] LABORATORYOrdered By: SYSTEM SYSTEM on [...] 12-04 Culture Urine No growth to date [facility] Microscopic examination of blood, culture Culture has been received in lab and is no growth to date. Routine cultures are held for 5 days. [facility] LABORATORYOrdered By: Rick Webber on 12-03-2021 Appearance [...] 1.006-1.029 AM [facility] Subsection Urobilinogen Qn (U) [id number] {Sara'U}/dL Invalid Interpretation Code 0.2-1.0E.U. /dL AM [...] on above: Result Comment: Alesia [address] [place], [place] [address] Perf Loc - POCT Tested at AM Invalid Interpretation Code AM [facility] Subsection Comment on above: Result Comment: Alesia [address] [place], [place] [address] Perf Loc - POCT Tested at AM Invalid Interpretation Code AM Telcor Subsection Comment on above: Result Comment: Alesia Ziegler [address] [place], [place] [address] MRI BREAST WO/W IVCON BILon 03-01-2018 MRI BREAST WO/W IVCON DUNCAN * * *Final Report* * * DATE OF EXAM: Mar 01 2018 11:54AM [facility] 0773 - MRI BREAST WO/W IVCON DUNCAN / PROCEDURE REASON: N64.4-Mastodynia * * * * Physician Interpretation * * * * #[id number] - MRI BREAST WO/W IVCON DUNCAN BREAST MRI OF BOTH BREASTS: 03/01/2018 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 Short interval follow up of the lumpectomy site recommended per the prior MRI dated 05/18/2017. RESULT: Comparison is made to exam dated: 05/18/2017 breast MRI - [facility]. Interpretation of this MRI was correlated [...] Follow-up with ACR/NCCN guidelines. Td carlson/rafael:03/01/2018 14:15:08 Clinical Editor(s): Cally Pierson RT(N)(MR), [facility] MRI BI-RADS: 2 Benign finding Multiple [...] Health, Family Medicine, and Medical/Surgical Oncology, the [facility] [place] has carefully reviewed the data and reached [...] their providers when to stop screening mammograms. Provider Relations Representative: Rafael Transcribe Date/Time: Mar 01 2018 11:37A Dictated by : TD SANDERS MD This examination was interpreted and the report reviewed and electronically signed by: TD SANDERS MD on Mar 01 2018 2:15PM EST [id number] [facility] NURSING PROGon 03-01-2018 Protein mass conc HNO ID: [id number] Author: Carla Love (Rn) Kristopher Service: Radiology [...] Summers RN March 01, 2018 10:49 AM [facility] Clinical Summary: HMSPatient IDon 01-17-2018 OOP Invalid Interpretation Code [facility] Work Phone: Office Visit: Follow-up by sasha servin, Rm: PT2on 01-17-2018 NEGATED: Highlighted rowMRI (magnetic resonance imaging) history of the lumbar spine on 10/20/2013 at [place] Invalid Interpretation Code [facility] Work Phone: NEGATED: Highlighted rowProtein mass conc Done Invalid Interpretation Code [facility] Work Phone: MRI BREAST WO/W IVCON BILon 05-18-2017 MRI BREAST WO/W IVCON DUNCAN * * *Final Report* * * DATE OF EXAM: May 18 2017 2:32PM [facility] 0773 - MRI BREAST WO/W IVCON DUNCAN / PROCEDURE REASON: Z13.89-Encounter for screening for other disorder * * * * Physician Interpretation * * * * #[id number] - MRI BREAST WO/W IVCON DUNCAN BREAST [...] was reviewed by a staff physician. Cricket page,gaurav/rafael:05/18/2017 15:28:32 Clinical Editor: Cally Pierson RT(Alex)(Jeanine), [facility] MRI BI-RADS: 3 Probably benign finding - short term interval follow-up recommended Provider Relations Representative: Rafael Transcribe Date/Time: May 18 2017 2:15P Dictated by : MALLIKA PAYNE MD This examination was interpreted and the report reviewed and electronically signed by: CRICKET AMBRIZ MD on May 18 2017 3:28PM EST [id number] [facility] NURSING PROGon 05-18-2017 Protein mass conc HNO ID: [id number] Author: Ema Muse) DONA Bai Service: PICC Team Author Type: [...] 2017 TIME: 1:27 PM PAGER/CONTACT #: [id number] [facility] Vital Signs Date Time Vital Sign Value Performing Clinician Facility 08-26-2024 12:46-0400 Body height 167.[address] Warner Leos MD Work Phone: [facility] 07-24-2024 03:24-0400 Diastolic blood pressure 69 mm[Hg] Dr. Warner Leos MD Work Phone: [facility] 07-24-2024 03:24-0400 Heart rate 52 /min Dr. Warner Leos MD Work Phone: [facility] 07-24-2024 03:24-0400 SaO2% (BldA) [Mass fraction] 100 % Dr. Warner Leos MD Work Phone: [facility] 07-24-2024 03:24-0400 Systolic blood pressure 164 mm[Hg] Dr. Warner Leos MD Work Phone: [facility] 07-24-2024 01:24-0400 Body height 167.[address] Warner Leos MD Work Phone: [facility] 07-24-2024 01:24-0400 Body mass index (BMI) [Ratio] 28 kg/m2 Dr. Warner Leos MD Work Phone: [facility] 07-24-2024 01:24-0400 Body temperature 98 [degF] Dr. Warner Leos MD Work Phone: [facility] 07-24-2024 01:24-0400 Body weight 78.[address] Warner Leos MD Work Phone: [facility] 07-24-2024 01:24-0400 Respiratory rate 16 /min Dr. Warner Leos MD Work Phone: [facility] 02-10-2024 15:30-0500 Body temperature 97.52 [degF] ELDA OBREGONRUFF BEAM DOFFER-FASHION DIRECTOR [facility] 02-10-2024 15:30-0500 Diastolic Blood Pressure Non-Invasive 72 mm[Hg] ELDA OBREGONRUFF BEAM DOFFER-FASHION DIRECTOR [facility] 02-10-2024 15:30-0500 Heart rate 84 /min ELDA OBREGONRUFF BEAM DOFFER-FASHION DIRECTOR [facility] 02-10-2024 15:30-0500 Reason For Taking VItal Signs ELDA CARIN BEAM DOFFER-FASHION DIRECTOR [facility] 02-10-2024 15:30-0500 Respiratory rate 16 /min ELDA CARIN BEAM DOFFER-FASHION DIRECTOR [facility] 02-10-2024 15:30-0500 Systolic Blood Pressure Non-Invasive 146 mm[Hg] ELDA CARIN BEAM DOFFER-FASHION DIRECTOR [facility] 02-10-2024 06:37-0500 Body temperature 97.34 [degF] ELDA DEL ROSARIO BEAM DOFFER-FASHION DIRECTOR [facility] 02-10-2024 06:37-0500 Diastolic Blood Pressure Non-Invasive 82 mm[Hg] ELDA DEL ROSARIO BEAM DOFFER-FASHION DIRECTOR [facility] 02-10-2024 06:37-0500 Heart rate 80 /min ELDA DEL ROSARIO BEAM DOFFER-FASHION DIRECTOR [facility] 02-10-2024 06:37-0500 Reason For Taking VItal Signs ELDA DEL ROSARIO BEAM DOFFER-FASHION DIRECTOR [facility] 02-10-2024 06:37-0500 Respiratory rate 14 /min ELDA DEL ROSARIO BEAM DOFFER-FASHION DIRECTOR [facility] 02-10-2024 06:37-0500 Systolic Blood Pressure Non-Invasive 148 mm[Hg] ELDA DEL ROSARIO BEAM DOFFER-FASHION DIRECTOR [facility] 02-10-2024 03:22-0500 Body temperature 97.52 [degF] ELDA DEL ROSARIO BEAM DOFFER-FASHION DIRECTOR [facility] 02-10-2024 03:22-0500 Diastolic Blood Pressure Non-Invasive 81 mm[Hg] ELDA DEL ROSARIO BEAM DOFFER-FASHION DIRECTOR [facility] 02-10-2024 03:22-0500 Heart rate 81 /min ELDA DEL ROSARIO BEAM DOFFER-FASHION DIRECTOR [facility] 02-10-2024 03:22-0500 Reason For Taking VItal Signs ELDA DEL ROSARIO BEAM DOFFER-FASHION DIRECTOR [facility] 02-10-2024 03:22-0500 Respiratory rate 14 /min ELDA BUCKNERFF BEAM DOFFER-FASHION DIRECTOR [facility] 02-10-2024 03:22-0500 Systolic Blood Pressure Non-Invasive 156 mm[Hg] ELDA OBREGONRUFF BEAM DOFFER[employer]FASHION DIRECTOR [facility] 02-09-2024 22:01-0500 Heart rate 74 /min ELDA OBREGONRUFF BEAM DOFFER-FASHION DIRECTOR [facility] 02-09-2024 21:59-0500 Body height 152 cm ELDA DEL ROSARIO BEAM DOFFER-FASHION DIRECTOR [facility] 02-09-2024 21:59-0500 Body weight 67 kg ELDALILIANA OBREGONCARIN BEAM DOFFER-FASHION DIRECTOR [facility] 02-09-2024 21:59-0500 Body weight 29 kg/m2 ELDA OBREGONRUFF BEAM DOFFER-FASHION DIRECTOR [facility] 02-09-2024 21:07-0500 Heart rate 78 /min ELDA OBREGONRUFF BEAM DOFFER[employer]FASHION DIRECTOR [facility] 02-09-2024 21:07-0500 Mean blood pressure 90 mm[Hg] ELDA OBREGONRUFF BEAM DOFFER[employer]FASHION DIRECTOR [facility] 02-09-2024 20:38-0500 Mean blood pressure 85 mm[Hg] ELDA OBREGONRUFF BEAM DOFFER-FASHION DIRECTOR [facility] 02-09-2024 19:39-0500 Heart rate 83 /min ELDA OBREGONRUFF BEAM DOFFER-FASHION DIRECTOR [facility] 01-21-2024 10:04-0500 Body height 160 cm INES DENNIS MD [facility] 01-21-2024 10:04-0500 Body temperature 97.52 [degF] INES DENNIS MD [facility] 01-21-2024 10:04-0500 Body weight 68.2 kg INES DENNIS MD [facility] 01-21-2024 10:04-0500 Diastolic Blood Pressure Non-Invasive 81 mm[Hg] INES DENNIS MD [facility] 01-21-2024 10:04-0500 Heart rate 85 /min INES DENNIS MD [facility] 01-21-2024 10:04-0500 Respiratory rate 18 /min INES DENNIS MD [facility] 01-21-2024 10:04-0500 Systolic Blood Pressure Non-Invasive 164 mm[Hg] INES DENNIS MD [facility] 12-09-2023 08:47-0400 Blood Pressure Location INES DENNIS MD [facility] 12-09-2023 08:47-0400 Blood Pressure Method INES DENNIS MD [facility] 12-09-2023 08:47-0400 Body temperature 98.24 [degF] INES DENNIS MD [facility] 12-09-2023 08:47-0400 Diastolic Blood Pressure Non-Invasive 91 mm[Hg] INES DENNIS MD [facility] 12-09-2023 08:47-0400 Heart rate 90 /min INES DENNIS MD [facility] 12-09-2023 08:47-0400 Respiratory rate 18 /min INES DENNIS MD [facility] 12-09-2023 08:47-0400 Systolic Blood Pressure Non-Invasive 161 mm[Hg] INES DENNIS MD [facility] 11-29-2023 12:26-0400 Diastolic Blood Pressure Non-Invasive 76 mm[Hg] SONNY STAHL DO [facility] 11-29-2023 12:26-0400 Heart rate 76 /min SONNY STAHL DO [facility] 11-29-2023 12:26-0400 Respiratory rate 18 /min SONNY STAHL DO [facility] 11-29-2023 12:26-0400 Systolic Blood Pressure Non-Invasive 164 mm[Hg] SONNY STAHL DO [facility] 11-29-2023 08:58-0400 Blood Pressure Cuff Size SONNY STAHL DO [facility] 11-29-2023 08:58-0400 Blood Pressure Location SONNY STAHL DO [facility] 11-29-2023 08:58-0400 Blood Pressure Method SONNY STAHL DO [facility] 11-29-2023 08:58-0400 Body height 155 cm SONNY STAHL DO [facility] 11-29-2023 08:58-0400 Body temperature 97.34 [degF] SONNY STAHL DO [facility] 11-29-2023 08:58-0400 Diastolic Blood Pressure Non-Invasive 83 mm[Hg] SONNY STAHL DO [facility] 11-29-2023 08:58-0400 Heart rate 84 /min SONNY STAHL DO [facility] 11-29-2023 08:58-0400 Respiratory rate 18 /min SONNY STAHL DO [facility] 11-29-2023 08:58-0400 Systolic Blood Pressure Non-Invasive 172 mm[Hg] SONNY STAHL DO [facility] 06-19-2022 12:01-0400 Blood Pressure Cuff Size DR ANISA GOMEZ MD [facility] 06-19-2022 12:01-[address] ANISA GOMEZ MD [facility] 06-19-2022 12:01-[address] ANISA GOMEZ MD [facility] 06-19-2022 12:01-0400 Body height [address] ANISA GOMEZ MD [facility] 06-19-2022 12:01-0400 Body temperature 97.7 [degF] DR ANISA GOMEZ MD [facility] 06-19-2022 12:01-0400 Body weight 76.[address] ANISA GOMEZ MD [facility] 06-19-2022 12:01-0400 Body weight 31.88 kg/m2 DR ANISA GOMEZ MD [facility] 06-19-2022 12:01-0400 Diastolic Blood Pressure Non-Invasive [address] ANISA GOMEZ MD [facility] 06-19-2022 12:01-0400 Heart rate 86 /min DR ANISA GOMEZ MD [facility] 06-19-2022 12:01-0400 Systolic Blood Pressure Non-Invasive [address] ANISA GOMEZ MD [facility] 04-06-2022 09:47-0500 Body height 157.5 cm Paula Alaniz MD Work Phone: [facility] 04-06-2022 09:47-0500 Body temperature 97.81 [degF] Paula Alaniz MD Work Phone: [facility] 04-06-2022 09:47-0500 Body weight 73.94 kg Paula Alaniz MD Work Phone: [facility] 04-06-2022 09:47-0500 Diastolic blood pressure 70 mm[Hg] Paula Alaniz MD Work Phone: [facility] 04-06-2022 09:47-0500 Heart rate 109 /min Paula Alaniz MD Work Phone: [facility] 04-06-2022 09:47-0500 SaO2% (BldA) [Mass fraction] 99 % Paula Alaniz MD Work Phone: [facility] 04-06-2022 09:47-0500 Systolic blood pressure 148 mm[Hg] Paula Alaniz MD Work Phone: [facility] 12-25-2021 16:18-0500 Diastolic Blood Pressure Non-Invasive 69 1 INES DENNIS MD [facility] 12-25-2021 16:18-0500 Systolic Blood Pressure Non-Invasive 189 1 INES DENNIS MD [facility] 12-25-2021 15:56-0500 Body height 157.5 cm INES DENNIS MD [facility] 12-25-2021 15:56-0500 Body temperature 96.44 [degF] INES DENNIS MD [facility] 12-25-2021 15:56-0500 Body weight 65.9 kg INES DENNIS MD [facility] 12-25-2021 15:56-0500 Diastolic Blood Pressure Non-Invasive 109 1 INES DENNIS MD [facility] 12-25-2021 15:56-0500 Heart rate 90 /min INES DENNIS MD [facility] 12-25-2021 15:56-0500 Respiratory rate 20 /min INES DENNIS MD [facility] 12-25-2021 15:56-0500 Systolic Blood Pressure Non-Invasive 202 1 INES DENNIS MD [facility] 12-06-2021 12:58-0400 Diastolic blood pressure 77 mm[Hg] DR KEVIN VIRGEN MD [facility] 12-06-2021 12:58-0400 Mean blood pressure 111 mm[Hg] DR KEVIN VIRGEN MD [facility] 12-06-2021 12:58-0400 Systolic blood pressure 180 mm[Hg] DR KEVIN VIRGEN MD [facility] 12-06-2021 12:55-0400 Diastolic blood pressure 77 mm[Hg] DR KEVIN VIRGEN MD [facility] 12-06-2021 12:55-0400 Heart rate 60 /min DR KEVIN VIRGEN MD [facility] 12-06-2021 12:55-0400 Mean blood pressure 111 mm[Hg] DR KEVIN VIRGEN MD [facility] 12-06-2021 12:55-0400 Reason For Taking VItal Signs DR KEVIN VIRGEN MD [address] [place] [address] 12-06-2021 12:55-0400 Respiratory rate 18 /min DR KEVIN VIRGEN MD [address] [place] [address] 12-06-2021 12:55-0400 Systolic blood pressure 180 mm[Hg] DR KEVIN VIRGEN MD [address] [place] [address] 12-06-2021 08:46-0400 Heart rate 78 /min DR KEVIN VIRGEN MD [address] [place] [address] 12-06-2021 08:30-0400 Body temperature 98.06 [degF] DR KEVIN VIRGEN MD [address] 12-06-2021 08:30-0400 Diastolic blood pressure 82 mm[Hg] DR KEVIN VIRGEN MD [address] [place] [address] 12-06-2021 08:30-0400 Heart rate 77 /min DR KEVIN VIRGEN MD [address] [place] [address] 12-06-2021 08:30-0400 Mean blood pressure 106 mm[Hg] DR KEVIN VIRGEN MD [address] 12-06-2021 08:30-0400 Reason For Taking VItal Signs DR KEVIN VIRGEN MD [address] [place] [address] 12-06-2021 08:30-0400 Respiratory rate 17 /min DR KEVIN VIRGEN MD [address] [place] [address] 12-06-2021 08:30-0400 Systolic blood pressure 155 mm[Hg] DR KEVIN VIRGEN MD [address] [place] [address] 12-06-2021 03:45-0400 Body temperature 97.88 [degF] DR KEVIN VIRGEN MD [address] [place] [address] 12-06-2021 03:45-0400 Reason For Taking VItal Signs DR KEVIN VIRGEN MD [address] [place] [address] 12-06-2021 03:45-0400 Respiratory rate 18 /min DR KEVIN VIRGEN MD [address] [place] [address] 12-05-2021 23:53-0400 Body temperature 98.06 [degF] DR KEVIN VIRGEN MD [address] [place] [address] 12-04-2021 15:33-0400 Heart rate 56 /min DR KEVIN VIRGEN MD [address] [place] [address] 12-04-2021 02:47-0400 Heart rate 55 /min DR KEVIN VIRGEN MD [address] [place] [address] 12-03-2021 23:44-0400 Heart rate 60 /min DR KEVIN VIRGEN MD [address] [place] [address] 12-03-2021 21:46-0400 Body height [address] KEVIN VIRGEN MD [address] [place] [address] 12-03-2021 21:46-0400 Body weight 83.[address] KEVIN VIRGEN MD [address] [place] [address] 12-03-2021 21:46-0400 Body weight 32.73 kg/m2 DR KEVIN VIRGEN MD [address] [place] [address] 12-03-2021 21:30-0400 Heart rate 86 /min DR KEVIN VIRGEN MD [address] [place] [address] 12-03-2021 14:26-0400 Body temperature 98.06 [degF] DR KEVIN VIRGEN MD [facility] 12-03-2021 14:26-0400 Body weight 83.[address] KEVIN VIRGEN MD [address] [place] [address] NEGATED: Highlighted [id number] 10:24-0500 BMI (Body Mass Index) 37.26 kg/m2 Rigo Best AT [facility] Work Phone: NEGATED: Highlighted [id number] 10:24-0500 BP Diastolic 72 mm[Hg] Rigo Sitko AT [facility] Work Phone: NEGATED: Highlighted [id number] 10:24-0500 BP Diastolic 82 mm[Hg] Rigo Sitko AT [facility] [place] [facility] Work Phone: NEGATED: Highlighted [id number] 10:24-0500 BP Systolic 154 mm[Hg] Rigo Sitko AT [facility] [place] [facility] Work Phone: NEGATED: Highlighted [id number] 10:24-0500 BP Systolic 149 mm[Hg] Rigo Sitko AT [facility] Work Phone: NEGATED: Highlighted [id number] 10:24-0500 Height 157.48 cm Rigo Sitko AT [facility] [place] [facility] Work Phone: NEGATED: Highlighted [id number] 10:24-0500 Height 157 cm Rigo Sitko AT [facility] Work Phone: NEGATED: Highlighted [id number] 10:24-0500 Pulse (Heart Rate) 60 /min Rigo Best AT [facility] [place] [facility] Work Phone: NEGATED: Highlighted [id number] 10:24-0500 Weight 92.08 kg Rigo Sitclaudia AT [facility] [place] [facility] Work Phone: NEGATED: Highlighted [id number] 10:24-0500 Weight 92 kg Rigo Sitko AT [facility] Work Phone: Encounters Encounter Date Encounter Type Care Provider Facility Start: 11-27-2024 End: 11-27-2024 [facility] Start: 11-13-2024 End: 11-13-2024 ambulatory Jairon Medel Facility:[facility] Start: 10-16-2024 [facility]: 10-16-2024 End: 10-16-2024 ambulatory Efmargarette Medel OLS Facility:[facility] Start: 09-18-2024 ambulatory Efmargarette Medel OLS Fa cility:[facility] Start: 09-18-2024 [facility] Start: 08-28-2024 End: 08-28-[address] Jairon Medel MD Work Phone: [facility] Start: 08-28-2024 End: 08-28-2024 [facility] Start: 08-28-2024 [facility] Start: 08-28-2024 End: 08-28-2024 ambulatory Jairon Medel OLS Facility:[facility] Start: 08-21-2024 ambulatory Efmargarette Medel OLS Fa cility:[facility] Start: 08-21-2024 Registered Referred Jairon Medel MD [facility] Start: 08-08-2024 End: 08-08-[address] Warner Leos MD Work Phone: [facility] Start: 08-08-2024 End: 08-08-[address] Jairon Medel MD -[facility] Work Phone: Start: 08-08-2024 Non-patient / Non-visit Dr. Julia young MD -[facility] Work Phone: Start: 07-24-2024 End: 07-24-[address] Warner Leos MD Work Phone: [facility] Start: 07-24-2024 End: 07-24-2024 Patient encounter procedure Jane CASTRO -[facility] Work Phone: Start: 07-24-2024 End: 07-24-2024 Emergency department patient visit Dr. Warner Leos MD Work Phone: -Emergency Department Work Phone: Start: 06-27-2024 End: 06-27-[address] Warner Leos MD Work Phone: -[facility] Start: 06-27-2024 End: 06-27-[address] Jairon Medel MD -[facility] Work Phone: Start: 06-26-2024 End: 06-26-[address] Warner Leos MD Work Phone: [facility] Work Phone: Start: 06-26-2024 End: 06-26-2024 Departed Referred Jairon Ruvalcaba Start: 06-26-2024 End: 06-26-2024 ambulatory Efmargarette Medel OLS Facility:[facility] Start: 05-29-2024 End: 05-29-[address] Warner Leos MD Work Phone: [facility] Work Phone: Start: 05-29-2024 End: 05-29-2024 Departed Referred Jairon Ruvalcaba Start: 05-29-2024 Registered Referred Jairon Ruvalcaba Start: 05-29-2024 End: 05-29-2024 ambulatory Efmargarette Medel OLS Facility:[facility] Start: 05-24-2024 End: 05-24-[address] Warner Leos MD Work Phone: [facility] Work Phone: Start: 05-24-2024 End: 05-24-2024 Departed Referred Jairon Ruvalcaba Start: 05-24-2024 Registered Referred Jairon Ruvalcaba Start: 05-23-2024 End: 05-24-[address] Warner Leos MD Work Phone: [facility] Work Phone: Start: 05-23-2024 End: 05-23-2024 Patient encounter procedure Janedieter Barth [facility] Work Phone: Start: 05-15-2024 End: 05-15-[address] Warner Leos MD Work Phone: [facility] Work Phone: Start: 05-15-2024 End: 05-15-2024 Departed Referred Jairon Ruvalcaba Start: 05-15-2024 Registered Referred Jairon Ruvalcaba Start: 05-15-2024 End: 05-15-2024 ambulatory Efmargarette TREVIÑO Facility:[facility] Start: 05-12-2024 End: 05-12-[address] Warner Leos MD Work Phone: [facility] Work Phone: Start: 05-12-2024 End: 05-12-2024 Patient encounter procedure Janedieter Barth [facility] Work Phone: Start: 05-01-2024 End: 05-01-[address] Warner Leos MD Work Phone: [facility] Work Phone: Start: 05-01-2024 End: 05-01-2024 Departed Referred Jairon Ruvalcaba Start: 05-01-2024 End: 05-01-2024 ambulatory Efmargarette Medel OLS Facility:[facility] Start: 04-26-2024 End: 04-26-2024 ambulatory Jane Barth Facility:[facility] Start: 04-26-2024 End: 04-26-2024 Patient encounter procedure Jane Barth [facility] Work Phone: Start: 04-11-2024 End: 04-11-2024 ambulatory Jairon Medel Facility:[facility] Start: 04-11-2024 End: 04-11-[address] Jairon Medel MD -[facility] Work Phone: Start: 04-03-2024 End: 04-03-2024 Patient encounter procedure Jane CASTRO [facility] Work Phone: Start: 04-03-2024 End: 04-03-2024 ambulatory Jane Barth Facility:[facility] Start: 04-03-2024 Registered Referred Jairon uRvalcaba Start: 03-27-2024 ambulatory Jairon TREVIÑO Fa cility:[facility] Start: 03-27-2024 Registered Referred Jairon Ruvalcaba Start: 02-29-2024 End: 02-29-2024 ambulatory Jairon Medel Facility:[facility] Start: 02-29-2024 End: 02-29-[address] Jairon Medel MD -[facility] Work Phone: Start: 02-28-2024 End: 02-28-2024 Departed Referred Jairon Ruvalcaba Start: 02-28-2024 End: 02-28-2024 ambulatory Jairon TREVIÑO Facility:[facility] Start: 02-24-2024 End: 02-24-2024 ambulatory [facility] Facility:[facility] Start: 02-24-2024 End: 02-24-2024 Patient encounter procedure Jane CASTRO [facility] Work Phone: Start: 02-11-2024 End: 02-23-[address] LARRY THOMAS DO Facility:[facility] Start: 02-09-2024 End: 02-10-2024 Emergency department patient visit ELDA DEL ROSARIO BEAM DOFFER-FASHION DIRECTOR [facility] Start: 02-09-2024 End: 02-10-2024 Observation ELDA DEL ROSARIO BEAM DOFFER-FASHION DIRECTOR [facility] Start: 01-21-2024 End: 01-21-2024 Emergency department patient visit INES DENNIS MD [facility] Start: 01-05-2024 End: 01-05-[address] LARRY THOMAS DO [facility] Start: 01-05-2024 End: 01-05-[address] LARRY THOMAS DO [facility] Start: 12-29-2023 End: 12-29-[address] LARRY THOMAS DO [facility] Start: 12-29-2023 End: 12-29-[address] LARRY THOMAS DO [facility] Start: 12-21-2023 End: 12-21-[address] LARRY THOMAS DO [facility] Start: 12-21-2023 End: 12-21-[address] LARRY THOMAS DO [facility] Start: 12-18-2023 End: 01-26-[address] LARRY THOMAS DO Facility:[facility] Start: 12-15-2023 End: 12-15-[address] LARRY THOMAS DO [facility] Start: 12-15-2023 End: 12-15-[address] LARRY THOMAS DO [facility] Start: 12-15-2023 End: 12-19-[address] LARRY THOMAS DO [facility] Start: 12-15-2023 End: 12-19-[address] LARRY THOMAS DO [facility] Start: 12-09-2023 End: 12-09-2023 Emergency department patient visit INES DENNIS MD [facility] Start: 11-29-2023 End: 11-29-2023 Emergency department patient visit SONNY STAHL DO [facility] Start: 07-08-2023 End: 07-09-[address] LARRY THOMAS DO Facility:B Start: 07-08-2023 End: 07-08-[address] LARRY THOMAS DO [facility] Start: 04-14-2023 End: 04-15-2023 ambulatory MAHAD LORENZO MD Facility:B Start: 04-14-2023 End: 04-14-2023 Patient encounter procedure MAHAD LORENZO MD [facility] Start: 04-09-2023 End: 05-06-[address] LARRY THOMAS DO Facility:R Start: 04-09-2023 End: 02-14-[address] LARRY THOMAS DO Facility:[facility] Start: 04-07-2023 End: 04-08-[address] LARRY THOMAS DO Facility:B Start: 04-07-2023 End: 04-07-2023 Patient encounter procedure MAHAD LORENZO MD [facility] Start: 03-10-2023 End: 03-11-[address] LARRY THOMAS DO Facility:B Start: 12-14-2022 End: 12-15-[address] LARRY THOMAS DO Facility:B Start: 2022 End: 11-09-[address] LARRY THOMAS DO Facility:B Start: 2022 End: 11-09-2022 Coordination of care plan DR LARRY THOMAS DO [facility] Start: 09-16-2022 End: 09-17-[address] LARRY THOMAS DO Facility:B Start: 07-16-2022 End: 07-17-[address] ANISA GOMEZ MD Facility:A Start: 06-19-2022 End: 06-19-[address] ANISA GOMEZ MD [facility] Start: 06-03-2022 Telephone encounter Paula Yepez MD Work Phone: General Surgery Comment on above: Request for medical records Start: 04-15-2022 End: 04-15-[address] LARRY THOMAS DO [facility] Start: 04-14-2022 End: 04-14-[address] LARRY THOMAS DO [facility] Start: 04-06-2022 End: 04-07-2022 ambulatory PAULA ALANIZ Facility:[facility] Start: 04-06-2022 End: 04-06-2022 Patient encounter procedure Paula Alaniz MD Work Phone: General Surgery Comment on above: Abnormal ultrasound of breast; History of left breast cancer Start: 03-23-2022 End: 03-23-2022 Patient encounter procedure ALANNA WRIGHT DO [facility] Start: 03-09-2022 End: 03-09-[address] LARRY THOMAS DO [facility] Start: 02-23-2022 End: 02-23-2022 Patient encounter procedure ALANNA WRIGHT DO [facility] Start: 01-22-2022 End: 01-22-2022 Patient encounter procedure ALANNA WRIGHT DO [facility] Start: 12-25-2021 End: 12-25-2021 Emergency department patient visit INES DENNIS MD [facility] Start: 12-03-2021 End: 12-06-[address] KEVIN VIRGEN MD [facility] Start: 05-05-2021 End: 05-05-2021 Patient encounter procedure ALANNA WRIGHT DO [facility] Start: 12-11-2020 End: 12-11-2020 Patient encounter procedure SEAN POOLE MD [facility] Start: 03-01-2018 Patient encounter procedure [facility] Start: 01-17-2018 End: 01-17-2018 Patient encounter procedure Carla Dye MD Work Phone: [facility] Work Phone: Start: 05-18-2017 Patient encounter procedure [facility] Procedures Date Procedure Procedure Detail Performing Clinician [...] Date Care Activity Detail Author Start: 07-24-2024 [facility] Start: 02-08-2022 ADVANCE DIRECTIVE DISCUSSION ADVANCE DIRECTIVE DISCUSSION [facility] Start: 02-08-2022 DEPRESSION ASSESSMENT DEPRESSION ASSESSMENT [facility] Start: 08-10-2021 COVID-19 VACCINE (5 - Booster for Moderna series) COVID-19 VACCINE (5 - Booster for Moderna series) [facility] Start: 01-17-2018 End: 01-17-2018 Appointment Appointment [facility] Work Phone: Start: 09-23-2003 BONE DENSITY BONE DENSITY [facility] Start: 09-23-2003 PNEUMOCOCCAL: 65+ (1 - PCV) PNEUMOCOCCAL: 65+ (1 - PCV) [facility] Start: 1988 SHINGRIX VACCINE (1 of 2) SHINGRIX VACCINE (1 of 2) [facility] Start: 09-23-1983 DIABETES SCREEN DIABETES SCREEN [facility] Start: 1957 Urine microalbumin profile DTAP,TDAP,TD (1 - Tdap) [facility] Patient Education [facility] Work Phone: Patient referral [facility] Work Phone: Immunizations Immunization Date Immunization Notes Care Provider Mariya rubio 12-27-2022 SARS-CoV-2 (COVID-19 ) [id number] MAHAD LORENZO MD [facility] 11-05-2022 zoster vaccine recombinant MAHAD LORENZO MD [facility] 10-03-2022 influenza virus vacc ine, unspecified formulation MAHAD LORENZO MD [facility] 09-15-2022 pneumococcal 20-lisa nt conjugate vaccine MAHAD LORENZO MD [facility] 01-10-2022 influenza virus vacc ine, unspecified formulation MAHAD LORENZO MD [facility] 06-15-2021 SARS-CoV-2 (COVID-19 ) mRNA-1273 vaccine MAHAD LORENZO MD [facility] 12-12-2020 SARS-CoV-2 (COVID-19 ) mRNA-1273 vaccine MAHAD LORENZO MD [facility] Comment on above: Result Comment: 2022: [id number] 10-22-2020 influenza virus vacc ine, unspecified formulation MAHAD LORENZO MD [facility] 03-28-2020 COVID-19, mRNA, LNP- S, PF, 100 mcg/ 0.5 mL dose; Translations: [Moderna COVID-19 Vaccine] SEAN POOLE MD [facility] 02-29-2020 COVID-19, mRNA, LNP- S, PF, 100 mcg/ 0.5 mL dose; Translations: [Moderna COVID-19 Vaccine] SEAN POOLE MD [facility] 10-12-2019 influenza virus vacc ine, unspecified formulation SEAN POOLE MD [facility] Comment on above: Result Comment: phar liv administered 10-11-2019 influenza virus vacc ine, unspecified formulation MAHAD LORENZO MD [facility] 10-11-2019 pneumococcal conjuga te vaccine, 13 valent SEAN POOLE MD [facility] 10-07-2018 influenza virus vacc ine, unspecified formulation SEAN POOLE MD [facility] 12-21-2017 influenza virus vacc ine, unspecified formulation SEAN POOLE MD [facility] 10-27-2016 influenza virus vacc matias, unspecified formulation SEAN POOLE MD [facility] 10-29-2015 influenza virus vacc ine, unspecified formulation SEAN POOLE MD [facility] 10-30-2014 influenza virus vacc ine, unspecified formulation SEAN POOLE MD [facility] 10-31-2013 influenza virus vacc ine, unspecified formulation SEAN POOLE MD [facility] 11-01-2012 influenza virus vacc ine, unspecified formulation SEAN POOLE MD [facility] 01-09-2005 pneumococcal polysaccharide vaccine, 23 valent SEAN POOLE MD [facility] No information available. Rigo Best AT [facility] Work Phone: Payers Date Payer Category Payer Self-pay [id number] 2017 Private Health Insurance [id number] 2017 Unknown [id number] 2003 Medicare [id number]. 1.13.159.2.7.3.6 [id number] 2003 Medicare [id number] 1940 Unknown [id number] 2.16.840.1.755838.3.579.2. 1938 Unknown [id number] 2.16.840.1.520237.3.579.2. 1938 Unknown [id number] 2.16.840.1.383920.3.579.2. 1938 Unknown [id number] 2..840.1.328564.3.579.2. 1938 Unknown [id number] 2..840.1.632233.3.579.2 1938 Unknown [id number] 2..840.1.532791.3.579.2 1938 Unknown [id number] 2.840.1.756419.3.579.2 1938 Unknown [id number] 2.840.1.324969.3.579.2 1938 Unknown [id number] 2.840.1.903849.3.579.2 1938 Unknown [id number] 2.840.1.966335.3.579.2. 1938 Unknown [id number] 2..840.1.329409.3.579.2 1938 Unknown [id number] 2..840.1.282770.3.579.2.62 1938 Unknown [id number] 2.16.840.1.619686.3.579.2 1938 Unknown [id number] 2.16.840.1.690863.3.579.262 1938 Unknown [id number] 2.840.1.007871.3.579.2.627 1938 Unknown [id number] 2.16840.1.080089.3.579.2.627 1938 Unknown [id number] 2.16.840.1.483945.3.579.2.627 Medicare MEDICARE PART A B [id number] Unknown [id number] 2.16.840.1.378844.3.579.2.462 Unknown [id number] 2.16840.1.417818.3.579.2.462 Unknown [id number] 2.16840.1.998573.3.579.2.462 Unknown [id number] 2.16840.1.269708.3.579.2.462 Unknown [id number] 2.840.1.541868.3.579.2.462 Unknown [id number] 2.840.1.363328.3.579.2.462 Unknown [id number] 2.16840.1.228296.3.579.2.462 Unknown [id number] 2.16840.1.193767.3.579.2.462 Unknown [id number] 2.16.840.1.338768.3.579.2.462 Unknown [id number] 2.16840.1.055827.3.579.2.462 Unknown [id number] 2.16840.1.322692.3.579.2.462 Unknown [id number] 2.16.840.1.236972.3.579.2.462 Unknown [id number] 2.16.840.1.005046.3.579.2.462 Unknown [id number] 2.16.840.1.393087.3.579.2.462 Unknown [id number] 2.16840.1.212237.3.579.2.462 Unknown [id number] 2.16.840.1.983375.3.579.2.462 Unknown [id number] 2.16.840.1.608822.3.579.2.462 Unknown [id number] 2.16.840.1.635760.3.579.2.462 Unknown [id number] 2.16.840.1.163962.3.579.2.462 Unknown [id number] 2.16.840.1.325622.3.579.2.462 Unknown [id number] 2.16.840.1.446149.3.579.2.462 Unknown [id number] 2.16.840.1.726698.3.579.2.462 Unknown [id number] 2.16.840.1.224465.3.579.2.462 Unknown [id number] 2.16.840.1.307724.3.579.2.462 Unknown [id number] 2.16.840.1.420352.3.579.2.462 Social History Date Type Detail Facility Start: 01-17-2018 End: 01-17-2018 Assertion Unknown if ever smoked [facility] Work Phone: Start: 04-07-2019 End: 08-26-2024 Never smoked tobacco (finding) [facility] Sex Assigned At [facility] Start: 04-06-2022 Tobacco use and exposure Smokeless tobacco non-user [facility] Start: 04-06-2022 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 (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) [facility] Start: 1940 Sex Assigned At Not on file [facility] Start: 05-25-2013 End: 05-31-2024 Sex Female (finding) [facility] Start: 1940 Sex Assigned At Female [facility] Sex Female [facility] Medical Equipment Procedure Code Equipment [...] gray q2hrs Performed Other: 7AM - 4PM [facility] 02-10-2024 Functional Status Financial gaston gement, Home management, Laundry, Meal preparation, Personal ADL, Shopping [facility] 02-10-2024 Functional Status Sup [facility] 02-10-2024 Functional Status Identified as high risk, Door open, Non-Slip footwear, Room check performed [facility] 02-10-2024 Functional Status Jerrell Garcia [facility] 02-10-2024 Functional Status Jerrell [facility] 02-10-2024 Functional Status Jerrell [facility] 02-09-2024 [facility] Functional Status Minimum assistance [facility] 01-21-2024 Functional Status Independent [facility] 12-09-2023 Functional Status Minimum assistance [facility] 12-09-2023 Functional Status ID band on, Call device within reach, Bed in low position, Wheels locked, Upper/Half-Length side-rails up, Visitor at bedside, Safety level maintained [facility] 11-29-2023 Functional Status Up ad nazario [facility] 11-29-2023 Functional Status Standard Safet y ID band on, Call device within reach, Bed in low position, Wheels locked, Upper/Half-Length side-rails up, Visitor at bedside [facility] 06-19-2022 Functional Status Sensory Deficits None [facility] 12-25-2021 Functional Status Independent [facility] 12-06-2021 Functional Status None [facility] 12-06-2021 Functional Status Room check performed [facility] 12-06-2021 Functional Status [facility] 12-06-2021 Functional Status [facility] 12-05-2021 Functional Status [facility] 12-05-2021 Functional Status [facility] 12-05-2021 Functional Status Mod A 1 [facility] 12-04-2021 Functional Status Single level home [facility] 12-04-2021 Functional Status [facility] 12-04-2021 Functional Status [facility] 12-04-2021 Functional Status [facility] 12-04-2021 Functional Status [facility] 12-04-2021 Functional Status SCD On/Re-appl ied bilateral knee high [facility] 12-03-2021 Functional Status Ambulation in Room [facility] Mental Status Date Assessment Result Facility 02-10-2024 Mental Status Not oriented to time, Forgetful, Follows simple commands [facility] 02-09-2024 Mental Status [facility] 02-09-2024 Mental Status [facility] 01-21-2024 Mental Status Orientation Not oriented to situation, Forgetful [facility] 01-21-2024 Mental Status [facility] 12-09-2023 Mental Status Orientation Oriented x 4 [facility] 12-09-2023 Mental Status [facility] 11-29-2023 Mental Status Orientation Oriented x 4 [facility] 11-29-2023 Mental Status [facility] 12-25-2021 Mental Status Orientation Oriented x 4 [facility] 12-06-2021 Mental Status Oriented x 4, Forgetful [facility] 12-06-2021 Mental Status [facility] 12-06-2021 Mental Status [facility] Clinical Notes 12-03-2021 to 07-24-2024 Note Date & Type Note Facility 07-24-2024 Discharge summary [facility] 07-24-2024 Radiology Diagnostic study note [facility] Imaging Services [address] [facility] [place] [address] HIP, UNI W/ Pelvis 2-3 Views MR#: [id number] Acct: [id number] Name: CT DALTON Rep #: [id number] : 1940 F 83 From: Jane Vance MD PCP: Dr. Jairon Medel MD Status: R ER Study:HIP, UNI W/ Pelvis 2-3 Views Date of Ex am: 07/24/24 Exam# [id number] Ordering Dr: Sharon Harry MD PROCEDURE: HIP, [...] Right hip moderate degenerative changes. Reading Location: [place] [address] CC: Dr. Jairon Medel MD; Dr. Jean Claude Harry MD ~ Provider Relations Representative: Signed [facility] 02-10-2024 Hospital Discharge instructions Patient Education 02/10/2024 15:03:52 Dementia, Desa-ic-Gyzb Dementia Dementia is a condition that affects [...] Follow these instructions at home: Medicines Take shda-zgb-fmwmmza and prescription medicines only as told by [...] Document Reviewed: 04/11/2019 Elsevier Patient Education 2020 [employer] Follow Up Care 02/09/2024 19:37:05 With:LARRY THOMAS DO Address: [address] [place] [address] [place] [address] [phone] When:02/16/2024 09:30:00 Comments:This is your post-hospital appointment. Follow-up as scheduled. [facility] 02-10-2024 Note Discharge Instructions Thank you for allowing [facility] to assist you with your healthcare needs. The following is important discharge information regarding your hospital visit. Your Care Team SUSY ALBRIGHT APRN-SHAMEKA Your Diagnosis (HFpEF) heart failure with preserved ejection fraction Dementia Weakness What to do next Scheduled Follow-Up Appointments Appointment Type When With Where Contact Information StatusPC OV 02/16/2024 09:30 AM EST LARRY THOMAS DO [address] [id number] Confirmed Follow Up Appointments Follow Up with LARRY THOMAS DO When:02/16/2024 09:30 AM EST Where:[address] [place] [phone] Additional Information: This is your post-hospital appointment. [...] providers or retail pharmacies. Medication Leaflets memantine ([facility] MAN teen) Nameroycea Namekurt JACOBSON What is the most important information [...] may report side effects to FDA at 5-586-TJN-2748. What other drugs will affect memantine? Tell [...] may interact with memantine, including prescription and mgln-uad-jwwqcwu medicines, vitamins, and herbal products. Not all [...] to ensure that the information provided by [employer] ('[employer]') is accurate, up-to-date, and complete, but no guarantee is made to that effect. Drug information contained herein may be time sensitive. [employer] information has been compiled for use by healthcare practitioners and consumers in the [place] and therefore [employer] does not warrant that uses outside of the [place] are appropriate, unless specifically indicated otherwise. [employer] drug information does not endorse drugs, diagnose patients or recommend therapy. [employer] drug information is an informational resource designed [...] effective or appropriate for any given patient. [facility] does not assume any responsibility for any aspect of healthcare administered with the aid of information [facility] provides. The information contained herein is not intended to cover all possible uses, directions, precautions, warnings, drug interactions, allergic reactions, or adverse effects. If you have questions about the drugs you are taking, check with your doctor, nurse or pharmacist. Copyright 2924-9479 [facility]. Version: 5.01. Revision Date: 09/21/2022. Education Materials [...] Follow these instructions at home: Medicines Take kiev-igc-yhighhz and prescription medicines only as told by [...] 01/07/2009 Document Revised: 04/11/2019 Document Reviewed: 04/11/2019 [employer] Patient Education 2020 [employer] Additional Information VACCINATE! IT SAVES LIVES! Members of the community who have not yet received the COVID-19 vaccine and would like to receive it can visit one of [facility] vaccine clinics. There are many vaccine clinic locations within the [facility]. For locations and available times, please visit https://gettheshot.coronavirus.[place].gov/. It is important to note that some COVID mobile vaccine clinics are held outdoors and may be canceled in rainy or stormy conditions. To learn more about pediatric vaccinations (ages 5-11), we invite you to visit the [facility] webpage. https://www.[facility].org/pag es/1035-Jfmyg-Pkhdfqwocro-Frequent he-Uzytw-Cpxzfilhd.html To learn more about the COVID-19 vaccine, we invite you to visit the CDC website for a list of frequently asked questions.https://www.cdc.gov/armando navirus/2019-ncov/vaccines/faq.htm l [facility] Patient Portal Access Instructions: Stay connected with your healthcare team and access your personal medical information anytime with the [facility] Patient Portal. Please follow the directions below to create your [facility] account: 1.Access the email account you provided upon registration to the hospital/physician office.2.Look for an invitation email from [facility].3.Open the email and access the invitation link: Accept Invitation to [facility].4.Fill in the required alejandro to create your account. To access your account, visit [email or web address]. Click the blue button labeled "Access Patient [...] you will allow to register on the [facility] Patient Portal for access to your information. You can also access the [facility] Patient Portal on the [facility] angelica. Simply click on "Patient Portal" and then log into your account. If you would like to receive a full copy of your medical records, please contact the [facility] Medical Records Department by calling [phone], Wednesday through Wednesday between 8 a.m. and [...] Call your local pharmacy or go to [email or web address] to find one close to you.3.Make use of household items: Use cat litter or old coffee grounds to dispose medications if other options are not available. Mix your drugs with these household products, seal them in an airtight container and throw it into the garbage. Call [facility]: [phone] to be sure your drugs can be [...] CHART COPY. Signatures Patient Education Materials Dementia, Rbmn-ic-Tqdu Medication Leaflets memantine My discharge plan and instructions have been reviewed and explained to me and I,CT DALTON understand my current condition and have read and understand these discharge instructions. I have received a written copy of the plan/instructions. If I have questions, I am aware that I should contact my doctor. 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 Weakness 2. (HFpEF) heart failure [...] Date:02/16/2024 09:30:00 AM Scheduled Provider:LARRY THOMAS DO Location:[facility] Appointment Type:[facility] 01-02-2025 Note Date [...] 3, anemia, HLD, HFpEF. Patient presented to [facility] ED on 02/09/24 due to [...] by SUSY ALBRIGHT on 02/10/2024 10:21 AM [facility]01-01-2025 Note* Exam Date Time Procedure Performing Provider Status 02/09/24 8:10 PM XR Chest 1 View EILEEN CHRISTINE DO; Aut h (Verified) [id number] ORIGINAL EXAMINATION: ONE XRAY VIEW OF THE [...] 02/09/2024 9:08:10 PM Ordering Provider: TRIXIE BARONE [facility]01-01-2025 Note* Exam Date Time Procedure Performing Provider Status 02/09/24 7:59 PM EKG [ED AO] - CV MD TRIXIE BARONE MD; Auth (Verified) ECG Final Report Sinus rhythm LVH by voltage Inferior infarct, old Anterior Q waves, possibly due to LVH Electronic Signature: MD TRIXIE BARONE MD 02/09/2024 20:03:00 [facility]12-13-2024 Hospital Discharge instructions Patient Education 01/21/2024 [...] mid-urethra. Front view of female urinary tract. 9597-9613 [employer]. [address] [place] [address], [place] [address]. All rights reserved. This information is not intended as a substitute for professional medical care. Always follow yourhealthcare professional's instructions. Follow Up Care 01/21/2024 09:33:55 With:LARRY THOMAS DO Address: [address] [place] [phone] When:2-4 days [facility] 12-13-2024 Note Discharge Instructions Thank you for allowing [facility] to assist you with your healthcare needs. The following is importantdischarge information regarding your hospital visit. Diagnosis from Today's Visit Bladder pain What to Do Next Instructions from Your Care Team No qualifying data available. Post Acute Orders No qualifying data available. You Need to Schedule the Following Appointments Follow Up with LARRY THOMAS DO When:Within 2-4 days Where:[address] [place] [phone] Allergies NKA Medications Please ask your primary [...] mid-urethra. Front view of female urinary tract. 7610-0036 [employer]. [address] [place] [address], [place] [address]. All rights reserved. This information is not intended as a substitute for professional medical care. Always follow yourhealthcare professional's instructions. Additional Information VACCINATE! IT SAVES LIVES! Members of the community who have not yet received the COVID-19 vaccine and would like to receive it can visit one of [facility] vaccine clinics. There are many vaccine clinic locations within the [facility]. For locations and available times, please visit www.getClicknationot.coronavirus.[place].gov/. It is important to note that some COVID mobile vaccine clinics are held outdoors and may be canceled in rainy or stormy conditions. To learn more about pediatric vaccinations (ages 5-11), we invite you to visit the [facility] webpage. https://www.[facility].org/pages/9000-Gdprw-Rvybmchjfag-Osaxggomru-Hqjyt-Bsr stions.htmlTo learn more about the COVID-19 vaccine, we invite you to visit the CDC website for a list of frequently asked questions. https://www.cdc.gov/coronavirus/2019-ncov/vaccines/faq.html [facility] Patient Portal Access Instructions: Stay connected with your healthcare team and access your personal medical information anytime with the [facility] Patient Portal. If you would like a full copy of your medical records please contact the [facility] Medical Records Department Wednesday through Wednesday between 8a.m. and 4:30p.m. Please follow the directions below to access the portal: 1.Access the email account you provided upon registration to the hospital.2.Look for an invitation email from [facility].3.Open the email and access the invitation link: Accept Invitation to [facility]4.Fill in the required alejandro to create your account. Sign into [email or web address].The [email or web address] with your username and password that you [...] you will allow to register on the [facility] Patient Portal for access to your information. You can also access the [facility] Patient Portal on the [email or web address] angelica. Simply click on "Health Records" under [...] Call your local pharmacy or go to [email or web address] to find one close to you.3.Make use of household items: Use cat litter or old coffee grounds to dispose medications if other options arenot available. Mix your drugs with these household products, seal them in an airtight container andthrow it into the garbage. Call [facility]: [phone] to be sure your drugs can be [...] aware that I should contact my doctor. Patient/Farm Supervisor Signature: Date/Time: Relationship to Patient: Witness Name/Signature: Date/Time: [facility]11-12-2024 Note ORIGINAL EXAMINATION: AP lateral obliques [...] Sign Date: 12/21/2023 4:34:05 PM Ordering Provider: [facility]11-12-2024 Note ORIGINAL EXAMINATION: TWO XRAY VIEWS [...] Date: 12/21/2023 4:21:17 PM [facility] Note. MICRO - Microbiology [...] Locations *1: This test was performed at: [address], [facility]10-31-2024 Hospital Discharge instructions Patient Education 12/09/2023 [...] mid-urethra. Front view of female urinary tract. 2376-0875 [employer]. [address] [place] [address], [place] [address]. All rights reserved. This information is not intended as a substitute for professional medical care. Always follow yourhealthcare professional's instructions. Follow Up Care 12/09/2023 08:33:51 With:LARRY THOMAS DO Address: [address] [place] [phone] When:2-4 days [facility] 10-31-2024 Note Discharge Instructions Thank you [...] LARRY THOMAS DO When:Within 2-4 days Where:[address] [place] [phone]- [phone] Allergies NKA Medications Please ask your primary [...] mid-urethra. Front view of female urinary tract. 0440-0775 [employer]. [address] [place] [address], [place] [address]. All rights reserved. This information is not intended as a substitute for professional medical care. Always follow yourhealthcare professional's instructions. Additional Information VACCINATE! IT SAVES LIVES! Members of the community who have not yet received the COVID-19 vaccine and would like to receive it can visit one of [facility] vaccine clinics. There are many vaccine clinic locations within the [facility]. For locations and available times, please visit www.gettheshot.coronavirus.[place].gov/. It is important to note that some COVID mobile vaccine clinics are held outdoors and may be canceled in rainy or stormy conditions. To learn more about pediatric vaccinations (ages 5-11), we invite you to visit the [facility] webpage. https://www.[facility].org/pages/0492-Cfnnz-Pemldmmvxat-Qrzkvnqjhe-Iafvk-Iho stions.htmlTo learn more about the COVID-19 vaccine, we invite you to visit the CDC website for a list of frequently asked questions. https://www.cdc.gov/coronavirus/2019-ncov/vaccines/faq.html [facility] Patient Portal Access Instructions: Stay connected with your healthcare team and access your personal medical information anytime with the [facility] Patient Portal. If you would like a full copy of your medical records please contact the [facility] Medical Records Department Wednesday through Wednesday between 8a.m. and 4:30p.m. Please follow the directions below to access the portal: 1.Access the email account you provided upon registration to the hospital.2.Look for an invitation email from [facility].3.Open the email and access the invitation link: Accept Invitation to [facility]4.Fill in the required alejandor to create your account. Sign into [email or web address] [...] you will allow to register on the [facility] Patient Portal for access to your information. You can also access the [facility] Patient Portal on the Liquid5. Simply click on "Health Records" under "HealthData" [...] Call your local pharmacy or go to http://bit.ly/9F9Mr8y to find one close to you.3.Make use of household items: Use cat litter or old coffee grounds to dispose medications if other options arenot available. Mix your drugs with these household products, seal them in an airtight container andthrow it into the garbage. Call [facility]: [phone] to be sure your drugs can be [...] aware that I should contact my doctor. Patient/Farm Supervisor Signature: Date/Time: Relationship to Patient: Witness Name/Signature: Date/Time: [facility]10-21-2024 Hospital Discharge instructions Patient Education 11/29/2023 [...] or swelling over your back or spine 4125-8013 [employer]. [address] [place] [address]. All rights reserved. This information is not intended as a substitute for professional medical care. Always follow yourhealthcare professional's instructions. Follow Up Care 11/29/2023 08:56:34 With:Go to emergency room if symptoms worsen Address:Unknown When:2-4 days With:LARRY THOMAS DO Address: [address] [place] [phone] When:2-4 days [facility] 10-21-2024 Note Discharge Instructions Thank you for allowing [facility] to assist you with your healthcare needs. [...] with LARRY THOMAS DO When:Within 2-4 days Where:[address] [place] [phone] Allergies NKA Medications Please ask your primary [...] or swelling over your back or spine 1587-2053 [employer]. [address] [place] [address]. All rights reserved. This information is not intended as a substitute for professional medical care. Always follow yourhealthcare professional's instructions. Additional Information VACCINATE! IT SAVES LIVES! Members of the community who have not yet received the COVID-19 vaccine and would like to receive it can visit one of [facility] vaccine clinics. There are many vaccine clinic locations within the [facility]. For locations and available times, please visit www.gettheshot.coronavirus.[place].gov/. It is important to note that some COVID mobile vaccine clinics are held outdoors and may be canceled in rainy or stormy conditions. To learn more about pediatric vaccinations (ages 5-11), we invite you to visit the [facility] webpage. https://www.[facility].org/pages/2141-Jtqqu-Upzqjboydxs-Ucbjdmsqsx-Yfizq-Yap stions.htmlTo learn more about the COVID-19 vaccine, we invite you to visit the CDC website for a list of frequently asked questions. https://www.cdc.gov/coronavirus/2019-ncov/vaccines/faq.html [facility] Patient Portal Access Instructions: Stay connected with your healthcare team and access your personal medical information anytime with the [facility] Patient Portal. If you would like a full copy of your medical records please contact the [facility] Medical Records Department Wednesday through Wednesday between 8a.m. and 4:30p.m. Please follow the directions below to access the portal: 1.Access the email account you provided [facility].2.Look for an invitation email from [facility].3.Open the email and access the invitation link: Accept Invitation to [facility]4.Fill in the required alejandro to create your account. Sign into [email or web address] with your username and password that you [...] you will allow to register on the [facility] Patient Portal for access to your information. You can also access the [facility] Patient Portal on the Liquid5. Simply click on "Health Records" under "ChoicePass" and then click on the [facility] logo. [...] Call your local pharmacy or go to [email or web address] to find one close to you.3.Make use of household items: Use cat litter or old coffee grounds to dispose medications if other options arenot available. Mix your drugs with these household products, seal them in an airtight container andthrow it into the garbage. Call [facility]: [phone] to be sure your drugs can be [...] aware that I should contact my doctor. Patient/Farm Supervisor Signature: Date/Time: Relationship to Patient: Witness Name/Signature: Date/Time: [facility]10-21-2024 Note ORIGINAL HISTORY: Pain COMPARISON: No [...] Date: 11/29/2023 11:51:51 AM [facility]ing [facility] Note ORIGINAL EXAMINATION: CT OF [...] Sign Date: 04/14/2023 10:35:22 AM Ordering Provider: [facility]04-26-2023 Miscellaneous Notes* Telephone Encounter - Brenton Jennings RN - 06/03/2022 11:26 AM EDT Received a request from [facility] for all of Ct's left breast cancer treatment medical records. Faxed the request to medical records on [facility], fax confirmation sheet received. Brenton Jennings RN [facility] Note ORIGINAL EXAMINATION: ULTRASOUND OF THE KIDNEYS [...] Sign Date: 04/15/2022 10:15:33 AM Ordering Provider: [facility]03-08-2023 Note ORIGINAL EXAMINATION: ULTRASOUND OF THE [...] Sign Date: 04/15/2022 10:15:33 AM Ordering Provider: [facility]02-28-2023 NoteHNO ID: [id number] Author: Paula Alaniz MD Service: ? Author [...] needle core breast biopsies on 03/23/2022 at [facility]. Findings of "fat necrosis, inflammation and [...] cancer Kidney Disease Sister Heart disease Brother [place] The review of systems data was entered by the nurse and reviewed by or Nursing Notes: Mini Brooke LPN 04/06/2022 9:50 [...] of skin c (more content not included)... [facility]02-28-2023 History of Present illness Narrative* Paula Alaniz MD - 04/07/2022 7:[address] Jeter Sha 1940 REFERRING PHYSICIAN: No ref. provider found [...] needle core breast biopsies on 03/23/2022 at [facility]. Findings of "fat necrosis, inflammation and [...] cancer Kidney Disease Sister Heart disease Brother [place] The review of systems data was entered by the nurse and reviewed by or Nursing Notes: Mini Brooke LPN 04/06/2022 9:50 [...] her studies and testing were done at [facility], I have recommended that she proceed with her evaluation/treatment there. The breast radiologists there have recommended wire localization lumpectomy of the left breast. I have told her that I could offer her the same but it would be at [facility]. She states thatshe would prefer [facility] as it is closer to home. [...] Low Paula Alaniz MD documented in [facility] Nurse Note* Mini Brooke, TORPEDO SHOOTER - 04/06/2022 9:47 AM EST REVIEW OF [...] ago Mini Brooke LPN documented in this [facility] Note ORIGINAL FROM: [place] [address] [address] PROCEDURE FOR: CT JeterSimeon [address] [place] [address] Home: PID#: [id number] Exam#: [id number] : 1940 Age: 81 TO: ALANNA WRIGHT DO [address] [address] Fax: NO FAX EXAMINATION: ULTRASOUND OF THE [...] ALANNA WRIGHT CLINICAL: MAMMOGRAPHIC DENSITY LEFT BREAST. Clinical Editor: JOSIE RUIZ RT(Alex) RDMS letter sent: Biopsy Recommended BI-RADS 4 and 5 Ultrasound BI-RADS: 4 Suspicious for malignancy [facility]12-15-2022 Note ORIGINAL FROM: [place] [address] PROCEDURE FOR: CT D[address]TON [address] [place] [address] Home: PID#: [id number] Exam#: [id number] : 1940 Age: 81 TO: ALANNA WRIGHT DO [address] [address] Fax: NO FAX EXAMINATION: ULTRASOUND OF THE [...] ALANNA WRIGHT CLINICAL: MAMMOGRAPHIC DENSITY LEFT BREAST. Clinical Editor: JOSIE RUIZ RT(R) RDMS letter sent: Biopsy Recommended BI-RADS 4 and 5 Ultrasound BI-RADS: 4 [facility] 12-[facility]2021 Hospital Discharge instructions Patient Education 12/25/2021 17:00:50 Dizziness, Uncertain Cause Dizziness (Uncertain Cause) Dizziness is a common symptom. It may be described as lightheadedness, spinning, or feeling like you are going to faint. Dizziness can have many causes. Be sure to tell the healthcare provider about: All medicines you take, including prescription, pqyo-igq-npajbqk, herbs, and supplements Any other symptoms you [...] Chest, arm, neck, back, or jaw pain 5855-3597 [employer]. [address] [place] [address], [place] [address]. All rights reserved. This information is not [...] medicine was given, you may use an eyjt-gfq-wscbsye product made for clearingearwax (such as Debrox or Murine Earwax Drops). These contain carbamide peroxide and are available htuk-nel-ehsjsod. Lie down with the blocked ear facing [...] ear Headache, neck pain or stiff neck 3308-6185 [employer]. [address] [place] [address]. All rights reserved. This information is not intended as a substitute for professional medical care. Always follow yourhealthcare professional's instructions. Follow Up Care 12/25/2021 15:48:16 With:ALANNA WRIGHT DO Address: [address] [place] [phone] When:2-4 days [facility] 11-17-2022 Note Discharge Instructions Thank you for allowing [facility] to assist you with your healthcare needs. [...] WRIGHT DO When Within 2-4 days Where: [address] [place] [phone] Allergies NKA Medications Please ask your primary [...] about: All medicines you take, including prescription, vhap-vzn-xdhguix, herbs, and supplements Any other symptoms you [...] Chest, arm, neck, back, or jaw pain 4759-6290 [employer]. [address] [place] [address], [place] [address]. All rights reserved. This information is not [...] medicine was given, you may use an ntid-uxx-mpznklq product made for clearingearwax (such as Debrox or Murine Earwax Drops). These contain carbamide peroxide and are available shxi-rxq-gkjeccc. Lie down with the blocked ear facing [...] ear Headache, neck pain or stiff neck 4672-8477 [employer]. [address] [place] [address], [place] [address]. All rights reserved. This information is not intended as a substitute for professional medical care. Always follow yourhealthcare professional's instructions. Additional Information VACCINATE! IT SAVES LIVES! Members of the community who have not yet received the COVID-19 vaccine and would like to receive it can visit one of [facility] vaccine clinics. There are many vaccine clinic locations within the [facility]. For locations and available times, please visit www.[email or web address].org. It is important to note that some COVID mobile vaccine clinics are held outdoors and may be canceled in rainy orstormy conditions. To learn more about pediatric vaccinations (ages 5-11), we invite you to visit the [facility] webpage. https://www.[facility].org/pages/1018-Zqvzm-Mlxrokhyxal-Mllzmhtjxm-Yapmd-Uin stions.htmlTo learn more about the COVID-19 vaccine, we invite you to visit the [facility] website for a list of frequently asked questions. https://elizabeth.org/assets/Pmjkawsv-yuu-Bhusftpf/wclia-Nkzqrwh-Zsakhghdjx _Asked-Questions.pdf [facility] Patient Portal Access Instructions: Stay connected with your healthcare team and access your personal medical information anytime with the [facility] Patient Portal. If you would like a full copy of your medical records please contact the [facility] Medical Records Department Wednesday through Wednesday between 8a.m. and 4:30p.m. Please follow the directions below to access the portal: 1.Access the email account you [facility].2.Look for an invitation email from [facility].3.Open the email and access the invitation link: Accept Invitation to [facility]4.Fill in the required alejandro to create your account. Sign into www.The [employer] with your username and password that you [...] you will allow to register on the [facility] Patient Portal for access to your information. You can also access the [facility] Patient Portal on the Liquid5. Simply click on "Health Records" under "ChoicePass" and then click on the Trips[facility] logo. HOW TO SAFELY DISPOSE OF PRESCRIPTION [...] Call your local pharmacy or go to [email or web address] to find one close to you.3.Make use of household items: Use cat litter or old coffee grounds to dispose medications if other options arenot available. Mix your drugs with these household products, seal them in an airtight container andthrow it into the garbage. Call [facility]: [phone] to be sure your drugs can be [...] aware that I should contact my doctor. Patient/Farm Supervisor Signature: Date/Time: Relationship to Patient: Witness Name/Signature: Date/Time: [facility]10-29-2022 Hospital Discharge instructions Patient Education 12/06/2021 14:31:46 Dizziness, Ochw-ti-Fyfw Dizziness Dizziness is a common problem. It [...] balance is fine. If you need to seasoning mixer one place for a long time, move [...] Watch your dizziness for any changes. Take nhdo-dfu-drzipaj and prescription medicines only as told by [...] 01/14/2012 Document Revised: 01/28/2018 Document Reviewed: 02/11/2017 [employer] Patient Education 2020 [employer]. 12/06/2021 14:31:38 Fall Prevention and Home Safety, Eoew-dv-Nqmo Fall Prevention and Home Safety Falls cause [...] 11/21/2009 Document Revised: 07/26/2012 Document Reviewed: 04/26/2012 [facility] Patient Information 2015 [employer]. This information is not intended to replace advicegiven to you by your health care provider. Make sure you discuss any questions you have with your health care provider. Follow Up Care 12/03/2021 14:18:30 With:[facility], Address:Unknown When:1-2 days With:ALANNA WRIGHT DO Address: [address] [place] [address] [phone] When:1-2 days Comments:Please call the office to schedule a follow up appointment [facility] 10-29-2022 Note Discharge Instructions Thank you for allowing [facility] to assist you with your healthcare needs. [...] Bilateral w/ Fer 12/12/2021 03:00 PM EDT [facility] Follow Up Appointments Follow Up with [facility], When Within 1-2 days Follow Up with ALANNA WRIGHT DO When Within 1-2 days Why: Please call the office to schedule a follow up appointment Where: [address] [place] [phone]- The Following Activity and Diet Have Been [...] balance is fine. If you need to seasoning mixer one place for a long time, move [...] Watch your dizziness for any changes. Take renp-dxo-zjvoyoe and prescription medicines only as told by [...] 01/14/2012 Document Revised: 01/28/2018 Document Reviewed: 02/11/2017 [employer] Patient Education 2020 [employer]. Fall Prevention and Home Safety Falls cause [...] Document Reviewed: 04/26/2012 ExitCare Patient Information 2015 [employer]. This information is not intended to replace advicegiven to you by your health care provider. Make sure you discuss any questions you have with your health care provider. Additional Information VACCINATE! IT SAVES LIVES! Members of the community who have not yet received the COVID-19 vaccine and would like to receive it can visit one of [facility] vaccine clinics. There are many vaccine clinic locations within the [facility]. For locations and available times, please visit https://[email or web address]/. It is important to note that some COVID mobile vaccine clinics are held outdoors and may be canceled in rainy or stormy conditions. To learn more about pediatric vaccinations (ages 5-11), we invite you to visit the [facility] webpage. https://www.akSolectria Renewabless.org/pages/0860-Ymuqq-Picbatkegcd-Ejjsctxdoy-Lxvte-Nhg stions.htmlTo learn more about the COVID-19 vaccine, we invite you to visit the [facility] website for a list of frequently asked questions. https://The .[employer]/assets/Ibzbrjpx-vzf-Pwlwller/vxltl-Bcazmfu-Dolrlogovv _Asked-Questions.pdf [facility] Patient Portal Access Instructions: Stay connected with your healthcare team and access your personal medical information anytime with the [facility] Patient Portal.If you would like a full copy of your medical records, please contact the [facility] Medical Records Department, Wednesday through Wednesday between 8a.m. and 4:30p.m. Please follow the directions below to access the portal: 1.Access the email account you provided upon registration to the [facility].2.Look for an invitation email from [facility].3.Open the email and access the invitation link: Accept Invitation to [facility].Fill in the required alejandro to create your account. Sign into www.[employer] with your username and password that you [...] you will allow to register on the [facility] Patient Portal for access to your information. You can also access the [facility] Patient Portal on the Liquid5. Simply click on "Health Records" under "[employer]" and then click on the TripsByTips logo. HOW TO SAFELY DISPOSE OF PRESCRIPTION [...] Call your local pharmacy or go to [email or web address] [email or web address] to find one close to you.3.Make use of household items: Use cat litter or old coffee grounds to dispose medications if other options arenot available. Mix your drugs with these household products, seal them in an airtight container andthrow it into the garbage. Call [facility]: [phone] to be sure your drugs can be [...] CHART COPY. Signatures Patient Education Materials Dizziness, Lgpc-qn-Zmcs Fall Prevention and Home Safety, Nqqt-sg-Ybzi Medication Leaflets My discharge plan and instructions have been reviewed and explained to me and I,CT DALTON understand my current condition and have read and understand these discharge instructions. I have received a written copy of the plan/instructions. If I have questions, I am aware that I should contact my doctor. Patient/Farm Supervisor Signature: Date/Time: Relationship to Patient: Witness Name/Signature: Date/Time: [id number] Note Discharge Instructions Thank you for allowing [...] Bilateral w/ Fer 12/12/2021 03:00 PM EDT [place] [facility] Follow Up Appointments Follow Up with [facility], [phone] When Within 1-2 days Follow Up with ALANNA WRIGHT DO When Within 1-2 days Why: Please call the office to schedule a follow up appointment Where: [address] [place] [address] [phone]- The Following Activity and Diet Have Been [...] to receive it can visit one of [facility] vaccine clinics. There are many vaccine clinic locations within the [facility]. For locations and available times, please visit [email or web address].gov/. It is important to note that some COVID mobile vaccine clinics are held outdoors and may be canceled in rainy or stormy conditions. To learn more about pediatric vaccinations (ages 5-11), we invite you to visit the [facility] webpage. https://www.[facility].org/pages/7533-Lidpw-Prtcmdfdlok-Xpeakyfmka-Bhosu-Tan stions.htmlTo learn more about the COVID-19 vaccine, we invite you to visit the [facility] website for a list of frequently asked questions. https://[employer]/assets/Pfzcyfkv-icm-Crifxggp/hyuel-Qmjbwjs-Tpjulugwjl _Asked-Questions.pdf [facility] Patient Portal Access Instructions: Stay connected with your healthcare team and access your personal medical information anytime with the [facility] Patient Portal.If you would like a full copy of your medical records, please contact the [facility] Medical Records Department, Wednesday through Wednesday between 8a.m. and 4:30p.m. Please follow the directions below to access the portal: 1.Access the email account you provided upon registration to the hospital.2.Look for an invitation email from [facility].3.Open the email and access the invitation link: Accept Invitation to [facility].Fill in the required alejandro to create your account. Sign into www.[employer] with your username and password that you [...] you will allow to register on the [facility] Patient Portal for access to your information. You can also access the [facility] Patient Portal on the ddmap.com angelica. Simply click on "Health Records" under "HealthData" and then click on the TripsByTips logo. HOW TO SAFELY DISPOSE OF PRESCRIPTION [...] Call your local pharmacy or go to [email or web address] [email or web address] to find one close to you.3.Make use of household items: Use cat litter or old coffee grounds to dispose medications if other options arenot available. Mix your drugs with these household products, seal them in an airtight container andthrow it into the garbage. Call [facility]: [phone] to be sure your drugs can be [...] aware that I should contact my doctor. 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 Unsteady gait (R26.81 - ICD-10-CM) 2. Dizziness (R42 - ICD-10-CM) Dizziness ([id number] - PNED) HTN - Hypertension ([id number] - PNED) Additional Orders: Ordered: atenolol 25 mg oral tablet,Dose : 25 mg = 1 tab(s), Oral, qDay, # 30 tab(s), 0 Refill(s), Pharmacy: [facility]/pharmacy #[id number], 160, cm, 12/03/21 21:46:00 EDT, Height [...] 100 mg daily, hydralazine 25 mg daily, bgowguqivnutkoiuqml39 mg daily, lisinopril 20 mg daily. In [...] to schedule a follow up appointment Where: [address] [place] [address] [place] [address]- Follow Up Appointments No qualifying data available. Follow Up Labs/Studies Discharge Labs No Follow-up Labs Discharge Studies No Follow-up Studies Discharge Diet No qualifying data available. Discharge Activity No qualifying data available. Readmission Risk/Palliative Score No qualifying data available. Digitally Signed by CODY RILEY MD on 12/06/2021 11:43 AM [facility]gooqnmo06-50-2477 Discharge summary Date of Service 12/06/21 Discharge Diagnosis 1. Unsteady gait (R26.81 - ICD-10-CM) 2. Dizziness (R42 - ICD-10-CM) Dizziness ([id number] - PNED) HTN - Hypertension ([id number] - PNED) Additional Orders: Ordered: atenolol 25 mg oral tablet,Dose : 25 mg = 1 tab(s), Oral, qDay, # 30 tab(s), 0 Refill(s), Pharmacy: [facility]/pharmacy #[id number], 160, cm, 12/03/21 21:46:00 EDT, Height [...] CT head, chest x-ray, MRI brain, TTE, [place]- Hallpike unremarkable.ECG showed LBBB, no prior EKG [...] 100 mg daily, hydralazine 25 mg daily, fjwqimjpselkkxscuhe02 mg daily, lisinopril 20 mg daily. In [...] Refills: 1. Follow Up Follow Up with ADRIANA, ALANNA J DO When Within 1-2 days Why: Please call the office to schedule a follow up appointment Where: [address] [facility] [place] [address]- Follow Up Appointments No qualifying data available. Follow Up Labs/Studies Discharge Labs No Follow-up Labs Discharge Studies No Follow-up Studies Discharge Diet No qualifying data available. Discharge Activity No qualifying data available. Readmission Risk/Palliative Score No qualifying data available. Digitally Signed by CODY RILEY MD on 12/06/2021 11:43 AM [facility] WestKcezcpzp16-44-1261 Note Chief Complaint Transition plan Transitional Action Points Currently is transition over to [facility] in [place] is able to accept Patient echo explained [...] are recommending SNF. She was excepted by [facility] in [place], will require COVID screen prior to transfer. 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 I Magdalena Ashley VICE PRESIDENT RESEARCH, personally performed the services described in this documentation, as described by Gladys Betancourt LPN in my presence and it is both accurate and complete. This document is transcribed using voice recognition software may contain typographical errors. Digitally Signed by MAGDALENA ASHLEY on 12/06/2021 09:45 AM [id number] Note ORIGINAL EXAMINATION: TWO XRAY VIEWS OF [...] 12/06/2021 12:06:38 AM Ordering Provider: FRIEDA HOLLAND [id number] Note Date of Service 12/05/2021 Subjective 81-year-old [...] ED documented asnegative. Patient was transfer from [place] to [place] for further cardiovascular work-up. Orthostatics performed and [...] Zara no answer, called patient's son Ang [phone] Who states that patient's mental status has [...] FRIEDA HOLLAND MD on 12/05/2021 06:41 PM [facility] [id number] Note ORIGINAL EXAMINATION: TWO XRAY VIEWS OF [...] Date: 12/06/2021 12:06:38 AM Ordering Provider: [facility] Note ORIGINAL EXAMINATION: MR Brain with [...] pathology. 2. Moderate parenchymal volume loss and ncdt-hi-ykwvroqg chronic microvascular white matter ischemic disease. Interpreted by: Alanna Chin MD Preliminary Report By: Alanna Chin MD Electronically signed By Alanna Chin MD Dictated Date: 12/05/2021 1:36:40 PM Prelim Date: 12/05/2021 1:40:15 PM Sign Date: 12/05/2021 1:40:15 PM Ordering Provider: [facility]10-28-2022 Note ORIGINAL EXAMINATION: MR Brain [...] pathology. 2. Moderate parenchymal volume loss and qobx-ap-rhmasuiu chronic microvascular white matter ischemic disease. Interpreted by: Alanna Chin MD Preliminary Report By: Alanna Chin MD Electronically signed By Alanna Chin MD Dictated Date: 12/05/2021 1:36:40 PM Prelim Date: 12/05/2021 1:40:15 PM Sign Date: 12/05/2021 1:40:15 PM Ordering Provider: [facility]10-28-2022 Note Date 12/05/2021 Chief complaint Transition plan. [...] Physical therapy notes on 12/04 recommending SNF. 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 [place]Hallpike was performed in ED documented asnegative. Patient was transfer from [place] to [place] for further cardiovascular work-up. Orthostatics performed and negative. On review of telemetry patient with episodes of bradycardia will decre ase atenolol. Patient ordered for MRI TTE and carotid duplex. PT/OT evaluation pending. Patient seen and examined this morning Patient does appear to have advanced dementia She does know that she is in [place] but speaks in a roundabout way about [...] FRIEDA HOLLAND MD on 12/04/2021 03:40 PM [facility] [id number] Note Chief Complaint Transition Plan. 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 I Magdalena Ashley VICE PRESIDENT RESEARCH, personally performed the services described in this documentation, as described by Danielle CARCAMO in my presence and it is both accurate and complete. This document transcribed using voice recognition software may contain typographical errors. Digitally Signed by MAGDALENA ASHLEY on 12/04/2021 02:59 PM [facility]Xwssrwux15-57-8866 History and physical note [place] [facility] Hospitalist History and Physical Date of Admission: 12/03/2021 Chief complaint: Dizziness History of present illness: History is taken from talking with the patient. Patient was accepted asa transfer from [place] emergency department by my colleague. 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 Tubal ligation Family history: Mother: High [...] Rate18(DEC 03 21:30)16(DEC 03 14:53)20(DEC 03 14:26) DRT103(DEC 03 21:30)136(DEC 03 21:30)H 187(DEC 03 16:20) [...] Appearance (POC): Clear (12/03/21 16:12:00) Urine Specific [place] (POC): <=1.005 Abnormal (12/03/21 16:12:00) Urine Glucose [...] Patient was accepted as a transfer from [facility] emergency department by my colleague on 12/03/2021 [...] ANA WILSON MD on 12/03/2021 09:55 PM [facility] WestAchlcjlk18-48-3679 Note ORIGINAL EXAMINATION: CT OF THE HEAD [...] 12/03/2021 4:02:30 PM Ordering Provider: BLANCA ARRIETA [facility] WestIucfkrbq03-49-4756 Note ORIGINAL EXAMINATION: CT OF THE HEAD [...] Sign Date: 12/03/2021 4:02:30 PM Ordering Provider: [facility]10-26-2022 Evaluation + Plan noteExtracted from: Title:Clinical Document Author:ANA WILSON MD Date:12/03/21 [facility] Medicine Hospitalist History and Physical Date of Admission: 12/03/2021 Chief complaint: Dizziness History of present illness: History is taken from talking with the patient. Patient was accepted as a transfer from [place] emergency department by my colleague. 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 Tubal ligation Family history: Mother: High [...] Rate18(DEC 03 21:30)16(DEC 03 14:53)20(DEC 03 14:26) FID136(DEC 03 21:30)136(DEC 03 21:30)H 187(DEC 03 16:20) [...] Appearance (POC): Clear (12/03/21 16:12:00) Urine Specific [place] (POC): <=1.005 Abnormal (12/03/21 16:12:00) Urine Glucose [...] Patient was accepted as a transfer from [facility] emergency department by my colleague on 12/03/2021 [...] MA Mammo Screening Bilateral w/ Fer 12/12/21 [facility] Discharge summary Author Jean Claude Harry [facility] Note Date/Time July 24, 2024 3:52 am [facility] Medical Records Department [address] [place] [address] Emergency Department Summary 07/24/24 MR#: [id number] Acct: [id number] Name: CT DALTON Rep #:[id number] : 1940 83 From: Jean Claude Harry [...] and prediabetes. [facility]. Now [...] mg PO DAILY 04/20/17 04/27/17 08:00 History jewjmkfjcxyd-Jl-vysi-minerals 1 ea PO DAILY 04/20/17 U nknown [...] range of motion. 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 Neurologically she is awake and alert. [...] Right hip moderate degenerative changes. Reading Location: [place] [address] Right hip and pelvis x-ray, 3 views, [...] obviously lying in bed. Tylenol for pain. Charlo as needed for pain also. Print Language: Kiswahili Disposition Disposition: Home, Self Care What to do if you have Problems For any increased pain, shortness of breath, bleeding, nausea or vomiting, chestpain, or any unexpected problems, contact your Primary Care Provider. Call [facility] ([phone]) or report to the closest Emergency Room. Call 911 if necessary. 07/24/24 0352 <Electronically signed by Jean Claude Harry MD> Cosigner Signature (if applicable): CC: Dr. Jairon Medel MD ~ Signed [facility] Work Phone: Evaluation + Plan note Future Appointments Appointment Date:05/05/2021 09:00:00 AM Scheduled Provider:ALANNA WRIGHT DO Location: [place] Appointment Type:PC OV [facility] Evaluation + Plan note Future Appointments Appointment Date:11/06/2021 08:30:00 AM Scheduled Provider:ALANNA WRIGHT DO Location: [place] Appointment Type:PC Wellness Medicare with Labs Future Scheduled Tests Radiology* XR Humerus Minimum 2 Views Right 05/05/21 [facility] Evaluation + Plan note Future Appointments Appointment Date:01/15/2022 02:00:00 PM Scheduled Provider: Location:[facility] Appointment Type:MA Mammogram Screening Bilateral w/ Fer Appointment Date:02/25/2022 10:00:00 AM Scheduled Provider:LARRY THOMAS DO Location:[facility] Appointment Type:PC VICE PRESIDENT RESEARCH Appointment Date:03/13/2022 10:30:00 AM Scheduled Provider:ALANNA WRIGHT DO Location: [place] Appointment Type:PC OV Future Scheduled Tests Radiology* MA Mammo Screening Bilateral w/ Fer 01/15/22 [facility] Evaluation + Plan note Future Appointments Appointment Date:02/25/2022 10:00:00 AM Scheduled Provider:LARRY THOMAS DO Location:[facility] Appointment Type:PC VICE PRESIDENT RESEARCH Appointment Date:03/13/2022 10:30:00 AM Scheduled Provider:ALANNA WRIGHT DO Location:[facility] Appointment Type:PC OV Future Scheduled Tests Radiology* US Biopsy Breast Left 1st Lesion 01/22/22 [facility] Evaluation + Plan note Future Appointments Appointment Date:03/05/2022 10:00:00 AM Scheduled Provider:LARRY THOMAS DO Location:[place] Appointment Type:PC VICE PRESIDENT RESEARCH Appointment Date:03/13/2022 10:30:00 AM Scheduled Provider:ALANNA WRIGHT DO Location:[facility] Appointment Type:PC OV Appointment Date:03/23/2022 01:00:00 PM Scheduled Provider: Location:[facility] Appointment Type:US Biopsy Breast Left 1st Lesion Future Scheduled Tests Radiology* US Biopsy Breast Left 1st Lesion 03/23/22 [facility] evaluation + Plan note Future Appointments Appointment [...] 1st Lesion 03/23/22 * US Renal 03/09/22 [facility] Evaluation + Plan note Future Appointments Appointment Date:04/16/2022 04:30:00 PM Scheduled Provider:LARRY THOMAS DO Location:[place] Appointment Type:PC OV Future Scheduled Tests Laboratory* Hepatic Function Panel 04/13/22 Radiology* US Renal 03/09/22 [facility] evaluation + Plan note Future Appointments Appointment Date:04/15/2022 07:30:00 AM Scheduled Provider: Location:[facility] Appointment Type:US Renal Appointment Date:04/16/2022 04:30:00 PM Scheduled Provider:LARRY THOMAS DO Location:[place] Appointment Type:PC OV Appointment Date:05/28/2022 10:00:00 AM Scheduled Provider:ANISA GOMEZ MD Location:[facility] Appointment Type:BS VICE PRESIDENT RESEARCH Future Scheduled Tests Radiology* US Renal 04/15/22 [facility] Evaluation + Plan note Future Appointments Appointment Date:04/16/2022 04:30:00 PM Scheduled Provider:LARRY THOMAS DO Location:[place] Appointment Type:PC OV Appointment Date:05/28/2022 10:00:00 AM Scheduled Provider:ANISA GOMEZ MD Location:[facility] Appointment Type:BS VICE PRESIDENT RESEARCH [facility] Evaluation + Plan note Future Appointments Appointment Date:07/16/2022 03:30:00 PM Scheduled Provider:ANISA GOMEZ MD Location:[facility] Appointment Type:BS OV Post Op Appointment Date:09/11/2022 11:00:00 AM Scheduled Provider:LARRY THOMAS DO Location:[facility] Appointment Type:PC Wellness Medicare [facility] Evaluation + Plan note Future Appointments Appointment Date:12/14/2022 10:00:00 AM Scheduled Provider: Mario:DEONNA Appointment Type:BD Bone Density DEXA Axial Skeleton Appointment Date:03/16/2023 10:00:00 AM Scheduled Provider:LARRY THOMAS DO Location:[facility] Appointment Type:PC OV Future Scheduled Tests Radiology* BD Bone Density DEXA Axial Skeleton 12/14/22 [facility] Evaluation + Plan note Future Appointments Appointment Date:06/15/2023 10:30:00 AM Scheduled Provider:LARRY THOMAS DO Location:[place] [facility] Appointment Type:PC OV Diagnostic Tests Pending * Methylmalonic Acid, Serum 04/07/23 [facility] evaluation + Plan note Future Appointments Appointment Date:06/15/2023 10:30:00 AM Scheduled Provider:LARRY THOMAS DO Location:[facility] Appointment Type:PC OV [facility] Evaluation + Plan note Future Appointments Appointment Date:12/15/2023 10:00:00 AM Scheduled Provider:LARRY THOMAS DO Location:[facility] Appointment Type:PC OV [facility] Evaluation + Plan note Future Appointments Appointment Date:12/29/2023 01:30:00 PM Scheduled Provider:LARRY THOMAS DO Location:[facility] Appointment Type:PC OV Diagnostic Tests Pending * Vitamin B12 Level 12/15/23 * Folate Level 12/15/23 Future Scheduled Tests Laboratory* Calcium Level Ionized 12/15/23 * Urine Culture 12/15/23 Radiology* XR Spine Lumbar W/Obliques 4 Views 12/15/23 [facility] Z-goodaluation + Plan note Future Appointments Appointment Date:12/29/2023 01:30:00 PM Scheduled Provider:LARRY THOMAS DO Location:[facility] Appointment Type:PC OV Future Scheduled Tests Laboratory* Calcium Level Ionized 12/15/23 Radiology* XR Chest 2 Views (PA & Lateral) 12/19/23 * XR Spine Lumbar W/Obliques 4 Views 12/15/23 [facility] Evaluation + Plan note Future Appointments Appointment Date:12/29/2023 01:30:00 PM Scheduled Provider:LARRY THOMAS DO Location:[facility] Appointment Type:PC OV Future Scheduled Tests Laboratory* Calcium Level Ionized 12/15/23 [facility] Evaluation + Plan note Future Appointments Appointment Date:02/16/2024 09:30:00 AM Scheduled Provider:LARRY THOMAS DO Location:[facility] Appointment Type:PC OV Future Scheduled Tests Radiology* US Bladder 12/29/23 [facility] evaluation + Plan note Future Appointments Appointment Date:02/16/2024 09:30:00 AM Scheduled Provider:LARRY THOMAS DO Location:[facility] Appointment Type:PC OV [facility] Evaluation note* Diagnosis Abnormal ultrasound of breast Other (abnormal) findings on radiological examination of breast History of left breast cancer documented in this encounter [facility] noteNo assessment information availableWWilson Health Work Phone: Hospital course Narrative No data available for this section [facility] Hospital Discharge instructions No data available for this section [facility] Hospital Discharge instructions Additional Instructions She has a superior pubic ramus fracture which is a pelvis fracture. These are not treated with surgery. They generally heal over weeks to months. She can do activity as tolerated. She may walk or be in a wheelchair or obviously lying in bed. Tylenol for pain. Charlo as needed for pain also.[facility] Work Phone: Progress note No data available for this section [facility] Reason for referral (narrative)No reason for referral information availableWWilson Health Work Phone: Chief Complaint Chief Complaint Description [...] Visit Chief Complaint Admit Date ADMISSION EXAM VICE PRESIDENT RESEARCH February 24, 2024 3 :20pm INTERMEDIATE LAB WORK February 28, 2024 5:00am ADMISSION EXAM February 29, 2024 1 1:54am INTERMEDIATE LAB WORK March 27 5:00am LABWORK April 03, 2024 5:00am [facility] April 03, 2024 2:22pm LABWORK May 01, 2024 5:0 0am Chief Complaint Admit Date ADMISSION EXAM VICE PRESIDENT RESEARCH February 24, 2024 3 :20pm INTERMEDIATE LAB [...] 00am Chief Complaint Admit Date ADMISSION EXAM VICE PRESIDENT RESEARCH February 24, 2024 3 :20pm INTERMEDIATE LAB [...] 0am Chief Complaint Admit Date ADMISSION EXAM VICE PRESIDENT RESEARCH February 24, 2024 3 :20pm INTERMEDIATE LAB [...] 2024 5:00 am Chief Complaint Admit Date INTERMEDIATE LAB WORK May 24, 2024 5 [...] am LABWORK September 18, 2024 5: 00am INTERMEDIATE LABWORK October 16, 2024 5:00am Additional Source [...] content) DATE CREATED AUTHOR 03/11/2018 [facility] DATE CREATED AUTHOR AUTHOR'S ORGANIZ ATION 06/04/2022 [facility] DATE CREATED AUTHOR AUTHOR'S ORGANIZ ATION 07/09/2023 [facility] ([place]) DATE CREATED AUTHOR AUTHOR'S ORGANIZ ATION 02/24/2024 [facility] DATE CREATED AUTHOR AUTHOR'S ORGANIZ ATION 03/28/2024 [facility] DATE CREATED AUTHOR AUTHOR'S ORGANIZ ATION 12/09/2024 [facility] Care Team (unrecognized sect ion and content) Care Team Personnel Name: ALANNA WRIGHT DO Position: P4 Physician - Primary Care Member Role: Primary Care Physician Address: Address: [address] [place] [address] [place] [address]- [place] Name: Venkata Alegria RN Position: ED RN Member Role: ED RN Name: BLANCA ARRIETA DO Position: P4 ED Physician II Member Role: ED Physician Address: Address: [address] [place] [address]- [place] Care Team Related Persons Name: ZARA DALTON Address: Home [address], [place] [id number] [place] Care Team Personnel Name: ALANNA WRIGHT DO Position: P4 Physician - Primary Care Member Role: Primary Care Physician Address: Address: [address] [place] [address]- Name: Danette Busch RN Position: AO RN Member Role: RN Name: INES DENNIS MD Position: ED Physician Member Role: Attending Physician Address: Address: [facility] [address] [place] [phone]- [place] Care Team Related Persons Name: ZARA DALTON Address: Home [address], [place] [phone] [place] Care Team Personnel Name: ALANNA WRIGHT DO Position: P4 Physician - Primary Care Member Role: Primary Care Physician Address: Address: [address] [place] [phone]- [place] Care Team Related Persons Name: ZARA DALTON Address: Home [address], [place] [phone] [place] Care Team Personnel Name: LARRY THOMAS DO Position: P4 Physician - Primary Care Member Role: Primary Care Physician Address: Address: [address] [place] [address]- [place] Care Team Related Persons Name: ZARA DALTON Address: Home [address], [place] [phone] [place] Care Team Personnel Name: LARRY THOMAS DO Position: P4 Physician - Primary Care Member Role: Primary Care Physician Address: Address: [address] [place] [address]- [place] Care Team Related Persons Name: ZARA DALTON Address: Home [address], [place] [phone] [place] Care Team Personnel Name: LARRY THOMAS DO Position: P4 Physician - Primary Care Member Role: Primary Care Physician Address: Address: [address] [place] [address]- [place] Care Team Related Persons Name: ZARA DALTON Address: [address] [phone] Care Team Personnel Name: LARRY THOMAS DO Position: P4 Physician - Primary Care Member Role: Primary Care Physician Address: Address: [address] [place] [id number] Care Team Related Persons Name: ZARA DALTON Address: [address] [phone] Care Team Personnel Name: LARRY THOMAS DO Position: P4 Physician - Primary Care Member Role: Primary Care Physician Address: Address: [address] [place] [address]- [place] Care Team Related Persons Name: ZARA DALTON Address: [address] [phone] Source Comments (unrecognize d section and content) In the event this informatio n is protected by the Federal Confidentiality of Alcohol and Drug Abuse Patient Records regulations: The Federal rules restrict any use of the information to criminally investigate or prosecute any alcohol or drug abuse patient.[facility] [place] the event this information is protected by the Federal Confidentiality of Alcohol and Drug Abuse Patient Records regulations: The Federal rules restrict any use of the information to criminally investigate or prosecute any alcohol or drug abuse patient.[facility] Care Teams (unrecognized sec tion and content) [...] 2024 End: April 03, 2024 Jane Barth VICE PRESIDENT RESEARCH, VICE PRESIDENT RESEARCH-C Attending Provider Active Start: April 03, 2024 [...] 2024 End: April 26, 2024 Jane Barth VICE PRESIDENT RESEARCH, VICE PRESIDENT RESEARCH-C Attending Provider Active Start: April 26, 2024 [...] July 24, 2024 End: July 24, 2024 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 Grade Teacher Relationship Specialty Start Date End Date Larry Thomas DO [address] [place] [address] PCP - General Family Medicine 03/30/22 Lachelle Cervantes MD, [facility] [place] [address] Physician Radiation Oncology 05/11/17 Kesha Davidson RN Specialty Loom Setter Oncology 07/28/17 Sixth Grade Teacher Relationship Specialty Start Date End Date Larry Thomas DO [address] [place] [id number] PCP - General Family Medicine 03/30/22 Lachelle Cervantes MD, [address] [place], [place] [phone] Physician Radiation Oncology 05/11/17 Kesha Davidson RN Specialty Loom Setter Oncology 07/28/17 Team Status: Active Member Role Status Dates Dr. Warner Leos Jr., MD Family Provider Active Dr. Warner Leos Jr., MD Primary Care Provider Active Team Status: Inactive Member Role Status Dates Dr. Warner Leos Jr., MD Primary Care Provider Active Start: February 24, 2024 End: February 24, 2024 Jane Barth VICE PRESIDENT RESEARCH, VICE PRESIDENT RESEARCH-C Attending Provider Active Start: February 24, 2024 [...] 2024 End: May 12, 2024 Jane Barth VICE PRESIDENT RESEARCH, VICE PRESIDENT RESEARCH-C Attending Provider Active Start: May 12, 2024 End: May 12, 2024 Team Status: Inactive Member Role Status Dates Dr. Jairon Medel MD Primary Care Provider Active Start: May 23, 2024 End: May 23, 2024 Jane Barth VICE PRESIDENT RESEARCH, VICE PRESIDENT RESEARCH-C Attending Provider Active Start: May 23, 2024 End: May 23, 2024 Team Status: Active Member Role/Relationship Status Dates Dr. Jairon Medel MD Primary Care Provider Active Team Status: Inactive Member Role/Relationship Status Dates Dr. Warner Leos Jr., MD Primary Care Provider Active Start: April 26, 2024 End: April 26, 2024 Jane Barth VICE PRESIDENT RESEARCH, VICE PRESIDENT RESEARCH-C Attending Provider Active Start: April 26, 2024 [...] 2024 End: May 12, 2024 Jane Barth VICE PRESIDENT RESEARCH, VICE PRESIDENT RESEARCH-C Attending Provider Active Start: May 12, 2024 [...] 2024 End: May 23, 2024 Jane Barth VICE PRESIDENT RESEARCH, VICE PRESIDENT RESEARCH-C Attending Provider Active Start: May 23, 2024 [...] 2024 End: May 12, 2024 Jane Barth VICE PRESIDENT RESEARCH, VICE PRESIDENT RESEARCH-C Attending Provider Active Start: May 12, 2024 [...] 2024 End: May 23, 2024 Jane Barth VICE PRESIDENT RESEARCH, VICE PRESIDENT RESEARCH-C Attending Provider Active Start: May 23, 2024 [...] 2024 End: July 24, 2024 Jane Barth VICE PRESIDENT RESEARCH, VICE PRESIDENT RESEARCH-C Attending Provider Active Start: July 24, 2024 [...] 2024 End: July 24, 2024 Jane Barth VICE PRESIDENT RESEARCH, VICE PRESIDENT RESEARCH-C Attending Provider Active Start: July 24, 2024 [...] 2024 Dr. Jean Claude Harry MD Emergency [facility] t Physician Active Start: July 24, 2024 End: July 24, 2024 Team Status: Inactive Member Role/Relationship Status Dates Dr. Jairon Medel MD Primary care physician Activ e Start: July 24, 2024 End: July 24, 2024 Jane Barth VICE PRESIDENT RESEARCH, VICE PRESIDENT RESEARCH-C Attending physician Active Start: July 24, 2024 [...] BE BASED ON THE PRIMARY CLINICAL RECORDS. [employer] provides no warranty or guarantee of the accuracy or completeness of information in this document.
[2024-12-11 07:48] LABS: Hematocrit 30.4 % (37-47); Hemoglobin 9.5 g/dL (12.0-15.0); Immature Granulocytes Count 0.030 X10^3/uL (0.0-0.0); Mean Corp Hgb Conc 31.3 g/dL (32-36); Mean Corpuscular Volume 89.9 fL (81-99); Mean Platelet Vol. 10.1 fl (6.2-12.0); NRBC Flagged by Analyzer 0 % (0-5); Platelet Count 332 K/mm3 (150-450); RBC Distribution Width CV 13.2 % (11.6-14.6); RBC Distribution Width SD 43.1 fl (35.1-43.9); Red Blood Count 3.38 M/mm3 (4.2-5.4); White Blood Count 7.7 K/mm3 (4.4-11.0)
[2024-12-11 08:07] LABS: Anion Gap 8 (5-15); BUN 26 mg/dL (4-19); BUN/Creat Ratio 28.8 RATIO (10-20); Calcium,Total 9.3 mg/dL (7.6-11.0); Carbon Dioxide 26.3 mmol/L (21.0-32.0); Chloride 108 mmol/L (98-108); Glucose 89 mg/dL (70-99); Potassium 4.3 mmol/L (3.3-5.1)
== END ==
LOC: OLS.WHLCAR 05:00
PROVIDERS: PCP Internal Medicine; Visit Provider Internal Medicine
DX: I12.9 Hypertensive chronic kidney disease with stage 1 through stage 4 chronic kidney disease, or unspecified chronic kidney disease (principal); N18.9 Chronic kidney disease, unspecified; G30.9 Alzheimer's disease, unspecified; F02.B11 Dementia in other diseases classified elsewhere, moderate, with agitation
CPT/HCPCS: 36415; 80048; 85025

== ENCOUNTER → 2025-01-08 | Outpatient (REF) | payer MEDICARE, OTHER, SELFPAY ==
--- OUTSIDE RECORDS SUMMARY | 2025-01-08 04:05 | XMS RPT_ITS | CCD ---
Author Organization [facility] Inform ion Partnership [facility] Care Team Providers Care Supervisor Sewer Maintenance Name Role Phone Carla Dye MD Unavailable [phone] PAULA ALANIZ Referring Unavailable PAULA ALANIZ Referring Unavailable ADRIANA , ALANNA Herrera Primary Care Physician MICAHAR DO, DR GAO Primary Care Physician [phone] Billy PARKER MD, Dabrandenung Unavailable Stuart RN, [...] ROMAR DO, DR GAO Primary Care Unavailable MOUNT PROSPECT LINE DIRECTOR-PRETZEL TWISTING MACHINE OPERATOR, ELDA Admitting Unavail able SNEHA PARKER, [...] PARKER, Dr. Hylton Primary Care Provider Lary EXECUTIVE COACH-C, Jane Attending Provider Jairon Medel MD Attending Provider Unavailsteffany Medel MD, Dr. De La O Attending Provider Jairon Medel MD Referring Provider UnavailDr. Warner Norton MD Primary Care Provider Jairon Medel MD Attending Provider Unavailsteffany Barth EXECUTIVE COACH-C, Jane Attending Provider Gianfranco PARKER, Dr. De La O Attending Provider Dr. Jairon Medel MD Primary Care Provider Dr. Jean Claude Harry MD Emergency Provider Deric PARKER, Dr. Hylton Primary Care Provider Jairon Medel MD Attending Provider UnavailDr. Jairon Morris MD Primary Care Provider Dr. Warner Leos MD Primary Care Provider Lary EXECUTIVE COACH-C, Jane Attending Provider Jairon Medel MD Attending Provider Unavailsteffany Medel MD, Dr. De La O Attending Provider Piero PARKER, Dr. Silverio Attending Provider Deric PARKER, Dr. Hylton Primary Care Provider Lary EXECUTIVE COACH-C, Jane Attending Provider Deric PARKER, Dr. Hylton Primary Care Provider Gianfranco PARKER, Jairon Attending Provider Unavaila katerina Medel MD, Jairon Referring Provider Unavailsteffany Medel MD, Dr. De La O Primary Care Provider Lary EXECUTIVE COACH-C, Jane Attending Provider Sameer PARKER, Dr. Dumont Attending Provider Gianfranco PARKER, Dr. De La O Primary Care Physician Piero PARKER, Dr. Silverio Attending Physician Piero PARKER, Dr. Silverio Emergency Department Physici an Lary EXECUTIVE COACH-C, Jane Attending Physician Sameer PARKER, Dr. Dumont Attending Physician Gianfranco PARKER, Dr. De La O Attending Physician Jairon Medel MD Attending Physician Unavail able Oleghe, Efewongbe Primary Care Unavailable Oleghe OLS, Efewongbe Attending Unavailabl e Oleghe OLS, Efewongbe Referring Unavailabl e Oleghe, Efewongbe Primary Care Unavailable Oleghe OLS, Efsreekanthongbe Attending Unavailabl e Oleghe OLS, Efewongbe Referring Unavailabl e Oleghe, Efewongbe Primary Care Unavailable Oleghe KAMILA, Efmeghanbe Attending UnavailWarner Elizabeth Jr. Primary Care Unavailable Oleghe OLS, Efmeghanbe Attending Unavailabl e Oleghe, Efewongbe Primary Care Unavailable Oleghe, Efewongbe Attending Unavailable Oleghe, Efewongbe Attending Unavailable Oleghe, Efewongbe Primary Care Unavailable Oledorcas Efewongbe Attending Unavailable Warner Leos Jr. Primary Care Unavailable Oleghe OLS, Efewongbe Attending Unavailabl e Oleghe, Efewongbe Primary Care Unavailable Oleghe, Efewongbe Primary Care Unavailable Oleghe OLS, Efewongbe Attending Unavailabl e Oleghe OLS, Efewongbe Attending Unavailabl e Oleghe, Efewongbe Primary Care Unavailable Oleghe OLS, Efewongbe Attending Unavailabl e Oleghe, Efewongbe Primary Care Unavailable Oleghe OLS, Efewongbe Attending Unavailthea Leos Jr., Warner Primary Care Unavailable Oleghe OLS, Efewongbe Referring Unavailthea Leos Jr., Warner Primary Care Unavailable Oleghe OLS, Efewongbe Attending Unavailthea Leos Jr., Warner Primary Care Unavailable Oleghe OLS, Efewongbe Attending Unavailabl e Danielton EXECUTIVE COACH, Jane Attending Unavailable Deric Rodriguez, Warner Primary Care Unavailable Tickton EXECUTIVE COACH, Jane Attending Unavailable Deric Rodriguez, Warner Primary Care Unavailable Oleghe, Efewongbe Primary Care Unavailable Tickton EXECUTIVE COACH, Jane Attending Unavailable Oleghe, Efewongbe Primary Care Unavailable Jean Claude Harry Attending Unavailable Oleghe OLS, Efewongbe Attending Unavailthea Leos Jr., Warner Primary Care Unavailable Oleghe OLS, Efewongbe Attending Unavailabl e Oleghe OLS, Efewongbe Referring Unavailthea Leos Jr., Warner Primary Care Unavailable Oleghe OLS, Efewongbe Attending Unavailthea Leos Jr., Warner Primary Care Unavailable Oleghe, Efewongbe Primary Care Unavailable Tickton EXECUTIVE COACH, Jane Attending Unavailable Tickton EXECUTIVE COACH, Jane Attending Unavailable Deric Rodriguez, Warner Primary Care Unavailable Oleghe, Efewongbe Attending Unavailable Deric Rodriguez, Warner Primary Care Unavailable Tickton EXECUTIVE COACH, Jane Attending Unavailable Oleghe, Efewongbe Primary Care Unavailable Oleghe, Efewongbe Attending Unavailable Oleghe, Efewongbe Primary Care Unavailable Oleghe, Efewongbe Primary Care Unavailable Tickton EXECUTIVE COACH, Jane Attending Unavailable Oleghe OLS, Efewongbe Attending Unavailabl e Deric Rodriguez, Warner Primary Care Unavailable Allergies Allergy Classification Reported Allergen(s) Allergy Type Date of Onset Reaction(s) Facility (1 source) Sulfacetamide Drug Allergy 4 rash [facility] Work Phone: (10 sources) Sulfonamides (Antibiotic); Translations: [SULFA (SULFONAMIDE ANTIBIOTICS)] Propensity to adverse reactions to drug (disorder) 8 Intolerance [facility] Other [place] [facility] Medications Current Medications Medication Drug Class(es) [...] taking., # 12 tab(s), 1 Refill(s), Pharmacy: [facility]/pharmacy #[id number], 155, cm, 12/15/23 10:32:00 EST, [...] taking., # 12 tab(s), 1 Refill(s), Pharmacy: [facility]/pharmacy #[id number], 153.5, cm, 06/15/23 10:26:00 EDT, Height, kg, 06/15/23 10:26:00 EDT, Dosing Weight Start Date: 06/15/23 Stop Date: 11/30/23 Status: Ordered anastrozole 1 mg oral tablet (20 sources) Aromatase Inhibitor Start: 09-28-2023 take 1 tablet by mouth once daily in the evening anastrozole 1 mg oral tablet 1 tab(s), Oral, qPM, # 90 tab(s), 0 Refill(s), [id number] 153.5, cm, 06/15/23 10:26:00 EDT, Height, kg, 06/15/23 10:26:00 EDT, Dosing Weight Start Date: 09/28/23 Status: Ordered Start: 03-16-2023 take 1 tablet by charles th once daily in the evening anastrozole 1 mg oral tablet 1 tab(s), Oral, qPM, # 90 tab(s), 1 Refill(s), [id number] 155.2, cm, 03/16/23 9:59:00 EST, Height, kg, 03/16/23 9:59:00 EST, Dosing Weight Start Date: 03/16/23 Status: Ordered Start: 09-30-2022 take 1 tablet by charles th once daily in the evening anastrozole 1 mg oral tablet 1 tab(s), Oral, qPM, # 90 tab(s), 1 Refill(s), [id number], 156.5, cm, 09/11/22 11:11:00 EDT, Height, kg, 09/11/22 11:11:00 EDT, Dosing Weight Start Date: 09/30/22 Status: Ordered Start: 11-21-2021 take 1 tablet by charles th once daily in the evening anastrozole 1 mg oral tablet 1 tab(s), Oral, qPM, # 90 tab(s), 1 Refill(s), Pharmacy: [facility] STORE [id number], 154.5, cm, 11/18/21 13:32:00 EDT, Height, kg, 11/18/21 13:32:00 EDT, Dosing Weight Start Date: 11/21/21 Status: Ordered Start: 03-20-2020 End: 04-05-2021 take 1 tablet by mouth once daily anastrozole 1 mg oral tablet 1 tab(s), Oral, qDay, # 90 tab(s), 1 Refill(s), Pharmacy: [facility] STORE [id number], 155, cm, 11/04/20 8:28:00 EDT, Height, kg, 11/11/20 8:26:00 EDT, Dosing Weight Start Date: 04/17/21 Status: Ordered Start: 01-12-2018 ARIMIDEX 1 MG TABS 1 tablet daily ANASTROZOLE [id number] Vidya Babin LPN Comment on above: TAKE 1 TABLET BY CHARLES TH EVERY DAY aspirin 81 mg delayed release oral tablet (20 sources) Platelet Aggregation Inhibitor, Nonsteroidal Anti-inflammatory Drug Start: 10-05-2023 End: 04-02-2024 aspirin 81 mg oral delayed release tablet Dose : 81 mg = 1 tab(s), Oral, qAM, do not crush or chew, # 90 tab(s), 1 Refill(s), Pharmacy: [facility]/pharmacy #[id number], 153.5, cm, 06/15/23 10:26:00 EDT, Height, kg, 06/15/23 10:26:00 EDT, Dosing Weight Start Date: 10/05/23 Stop Date: 04/02/24 Status: Ordered Start: 03-05-2022 End: 05-20-2023 aspirin 81 mg oral delayed r elease tablet Dose : 81 mg = 1 tab(s), Oral, qAM, do not crush or chew, # 90 tab(s), 3 Refill(s), Pharmacy: [facility]/pharmacy #[id number], 154.3, cm, 04/16/22 16:12:00 EST, [...] qPM, # 100 tab(s), 1 Refill(s), Pharmacy: [facility]/pharmacy #[id number], 155, cm, 12/15/23 10:32:00 EST, Height, kg, 12/15/23 10:26:00 EST, Dosing Weight Start Date: 12/15/23 Stop Date: 07/02/24 Status: Ordered Quantity: 100.0 Unit: tab(s) Repeat number: 2 Start: 09-13-2023 End: 12-12-2023 atorvastatin 20 mg oral tabl et Dose : 20 mg = 1 tab(s), Oral, qPM, # 90 tab(s), 0 Refill(s), [id number], 153.5, cm, 06/15/23 10:26:00 EDT, Height, kg, 06/15/23 10:26:00 EDT, Dosing Weight Start Date: 09/13/23 Stop Date: 12/12/23 Status: Ordered Start: 01-29-2023 End: 07-28-2023 atorvastatin 20 mg oral tabl et Dose : 20 mg = 1 tab(s), Oral, qPM, # 90 tab(s), 1 Refill(s), [id number], 156.5, cm, 09/11/22 11:11:00 EDT, Height, kg, 09/11/22 11:11:00 EDT, Dosing Weight Start Date: 01/29/23 Stop Date: 07/28/23 Status: Ordered Start: 03-09-2022 End: 11-21-2022 atorvastatin 20 mg oral tabl et Dose : 20 mg = 1 tab(s), Oral, qPM, # 90 tab(s), 1 Refill(s), [id number], 154.3, cm, 04/16/22 16:12:00 EST, Height, kg, 04/16/22 16:12:00 EST, Dosing Weight Start Date: 05/25/22 Stop Date: 11/21/22 Status: Ordered Start: 08-22-2021 take 0.5 tablet by m outh once daily atorvastatin 20 mg oral tablet 0.5 tab(s), Oral, qDay, # 45 tab(s), 1 Refill(s), Pharmacy: [facility] STORE [id number], 155, cm, 05/05/21 8:51:00 EDT, Height, kg, 05/05/21 8:51:00 EDT, Dosing Weight Start Date: 08/22/21 Status: Ordered Start: 11-06-2020 take 0.5 tablet by m outh once daily atorvastatin 20 mg oral tablet See Instructions, TAKE 1/2 TABLET EVERY DAY, # 45 tab(s), 1 Refill(s), [id number], 155, cm, 11/04/20 8:28:00 EDT, Height, kg, 11/04/20 8:28:00 EDT, Dosing Weight Start Date: 11/06/20 Status: Ordered Start: 04-20-2017 take 2 tablets by [facility] at bedtime Start: 10-27-[address] [facility] at bedtime Atorvastatin 10 MG tablet [...] qAM, # 90 cap(s), 0 Refill(s), [id number], 156.2, cm, 07/01/22 6:28:00 EDT, Height, kg, 07/01/22 6:28:00 EDT, Dosing Weight Start Date: 08/10/22 Status: Ordered Start: 12-07-2016 take 1 capsule by [facility] once daily in the morning celecoxib 100 mg oral capsule 1 cap(s), Oral, qAM, # 90 cap(s), 1 Refill(s), Pharmacy: [facility] STORE 62001, 154.3, cm, 04/16/22 16:12:00 EST, Height, kg, 04/16/22 16:12:00 EST, Dosing Weight Start Date: 05/21/22 Status: Ordered Start: 10-27-2013 CELEBREX 100 M G CAPS 1-2 capsules weekly as needed CELECOXIB [id number] Vidya Babin DRIVER/REFUSE COLLECTOR Comment on above: Take 100 mg by mouth once daily. ciclopirox 80 mg/ml topical solution (6 sources) Start: 03-05-2022 End: 01-06-2024 ciclopirox 8% topical solution Apply 1 angelica, Topical, Daily, apply to affected toenails and surrounding area once daily, remove with alcohol every 7 days prior to reapplication, Apply to: toenails, X 48 week(s), # 6.6 mL, 1 Refill(s), [id number], 154.3, cm, 03/05/22 9:44:00 EST, Height, 75.6 Start Date: 03/05/22 Stop Date: 01/06/24 Status: Ordered Clobetasol (3 sources) Corticosteroid Start: 01-20-2021 clobetasol 0.05% topical ointment See Instructions, APPLY TO AFFECTED AREA TWICE A DAY, # 15 gram(s), 1 Refill(s), Pharmacy: [facility] [id number], 155, cm, 11/04/20 8:28:00 EDT, Height, 81.2, kg, 11/11/20 8:26:00 EDT, Dosing Weight Start Date: 01/20/21 Status: Ordered Start: 07-30-2020 Temovate 0.05% topical ointment Apply 1 angelica, Topical, BID, # 15 gram(s), 0 Refill(s), [id number], Ointment, 155, cm, 07/23/20 8:15:00 EDT, [...] qHS, # 90 tab(s), 1 Refill(s), [id number], 156.5, cm, 09/11/22 11:11:00 [...] qHS, # 90 tab(s), 1 Refill(s), Pharmacy: [place] [id number], 155, cm, 11/04/20 8:28:00 EDT, Height, kg, [...] discomfort, # 39 tab(s), 0 Refill(s), Pharmacy: [facility]/pharmacy #[id number], 155, cm, 12/15/23 10:32:00 EST, [...] TID, # 5 gram(s), 0 Refill(s), Pharmacy: [facility]/pharmacy #[id number], Cream, 155, cm, 07/23/20 8:15:00 EDT, Height, 85.2, kg, 07/23/20 8:15:00 EDT, Dosing Weight Start Date: 07/23/20 Status: Ordered lisinopril 20 mg oral tablet (14 sources) Angiotensin Converting Enzyme Inhibitor Start: 03-16-2023 take 1 tablet by mouth once daily in the morning lisinopril 20 mg oral tablet 1 tab(s), Oral, qAM, # 90 tab(s), 1 Refill(s), Pharmacy: [facility]/pharmacy #[id number], 155.2, cm, 03/16/23 9:59:00 EST, Height, kg, 03/16/23 9:59:00 EST, Dosing Weight Start Date: 03/16/23 Status: Ordered Start: 10-15-2022 take 1 tablet by charles th once daily in the morning lisinopril 20 mg oral tablet 1 tab(s), Oral, qAM, # 90 tab(s), 1 Refill(s), Pharmacy: [facility]/pharmacy #[id number], 156.5, cm, 09/11/22 11:11:00 EDT, Height, kg, 09/11/22 11:11:00 EDT, Dosing Weight Start Date: 10/15/22 Status: Ordered Start: 04-13-2022 take 1 tablet by charles th once daily in the morning lisinopril 20 mg oral tablet 1 tab(s), Oral, qAM, # 90 tab(s), 1 Refill(s), Pharmacy: [facility]/pharmacy #[id number], 154.3, cm, 03/17/22 9:37:00 EST, Height, kg, 03/17/22 9:37:00 EST, Dosing Weight Start Date: 04/13/22 Status: Ordered Start: 09-02-2021 take 1 tablet by charles th once daily lisinopril 20 mg oral tablet 1 tab(s), Oral, qDay, # 90 tab(s), 1 Refill(s), Pharmacy: [facility] STORE [id number], 155, cm, 05/05/21 8:51:00 EDT, Height, kg, 05/05/21 8:51:00 EDT, Dosing Weight Start Date: 09/02/21 Status: Ordered Start: 10-22-2020 take 1 tablet by charles th once daily lisinopril 20 mg oral tablet See Instructions, TAKE 1 TABLET BY MOUTH EVERY DAY, # 90 tab(s), 1 Refill(s), Pharmacy: [facility] STORE [id number], 155, cm, 07/23/20 8:15:00 EDT, Height, kg, 07/30/20 8:40:00 EDT, Dosing Weight Start Date: 10/22/20 Status: Ordered losartan potassium 50 mg oral tablet (20 sources) Angiotensin 2 Receptor Aniyah Start: 10-27-2013 End: 07-02-2024 take 1 tablet by mouth once daily 24 hr memantine hydrochloride 28 mg extended release oral capsule (20 sources) P-nyytst-S-aspartate Receptor Antagonist Start: 07-24-2024 take 1 capsule [...] qAM, # 90 tab(s), 1 Refill(s), Pharmacy: [facility]/pharmacy #[id number], 156.5, cm, 09/11/22 11:11:00 EDT, Height, kg, 09/11/22 11:11:00 EDT, Dosing Weight Start Date: 01/29/23 Status: Ordered Start: 05-25-2022 take 1 tablet by charles th once daily in the morning memantine 5 mg oral tablet 1 tab(s), Oral, qAM, # 90 tab(s), 1 Refill(s), Pharmacy: [facility]/pharmacy #[id number], 154.3, cm, 04/16/22 16:12:00 EST, Height, kg, 04/16/22 16:12:00 EST, Dosing Weight Start Date: 05/25/22 Status: Ordered Start: 07-14-2021 take [address] [facility] once daily memantine 5 mg oral tablet 1 tab(s), Oral, qDay, # 90 tab(s), 1 Refill(s), Pharmacy: [facility] STORE [id number], 155, cm, 05/05/21 8:51:00 EDT, Height, kg, 05/05/21 8:51:00 EDT, Dosing Weight Start Date: 07/14/21 Status: Ordered Start: 04-15-2021 take [address] [facility] once daily memantine 5 mg oral tablet 1 tab(s), Oral, qDay, # 90 tab(s), 0 Refill(s), Pharmacy: [facility] STORE [id number], 155, cm, 11/04/20 8:28:00 EDT, Height, kg, 11/11/20 8:26:00 EDT, Dosing Weight Start Date: 04/15/21 Status: Ordered Start: 10-17-2020 take [address] [facility] once daily memantine 5 mg oral tablet See Instructions, TAKE 1 TABLET BY MOUTH EVERY DAY, # 90 tab(s), 0 Refill(s), Pharmacy: [facility] STORE [id number], 155, cm, 07/23/20 8:15:00 EDT, Height, kg, 07/30/20 8:40:00 EDT, Dosing Weight Start Date: 10/17/20 Status: Ordered Multivitamin preparation (17 sources) Start: 03-17-2022 take 1 tablet by mouth once daily Multivitamin Dose = 1 tab(s), Oral, Daily, 0 Refill(s) Start Date: 03/17/22 Status: Ordered Repeat number: 1 Start: 03-17-2022 take [address] [facility] once daily Multivitamin Dose = 1 tab(s), Oral, Daily, 0 Refill(s) Start Date: 03/17/22 Status: Ordered Xlgqerslrrpf-Gt-Rtlm-Mineral s (Multiple Vitamins For Women) 1 EACH tablet (12 sources) Start: 04-20-2017 take 1 tablet by mouth once daily Start: 04-20-2017 take 1 tablet by charles th once daily Qmfxbypzddjl-Cr-Bkrh-Minerals (Multiple Vitamins For Women) 1 EACH tablet Active 1 NMA PO DAILY April 20, 2017 12:00am mupirocin 0.02 mg/mg topical ointment (2 sources) RNA Synthetase Inhibitor Antibacterial Start: 06-19-2022 mupirocin 2% top ical ointment Apply 1 angelica, Topical, BID, Bilateral intranasal application twice daily x 5 days pre-surgery., Apply to: nostril, each, # 22 gram(s), 0 Refill(s), Pharmacy: [facility]/pharmacy #[id number], Ointment, 154.3, cm, 05/28/22 7:35:00 EDT, Height, 77 Start Date: 06/19/22 Status: Ordered nystatin [id number] unt/ml topical cream (8 sources) Polyene Antifungal Start: 07-24-2024 Start: 09-11-2022 End: 11-10-2022 nystatin 100,000 units/g top ical cream Apply 1 angelica, Topical, BID, PRN Rash, Apply to the affected area twice daily until healing complete., # 30 gram(s), 1 Refill(s), Pharmacy: [facility]/pharmacy #[id number], Cream, 156.5, cm, 09/11/22 11:11:00 [...] Date: 01/24/24 Status: Ordered polyethylene glycol 3350 95359 mg powder for oral solution (8 sources) [...] day(s), # 6 tab(s), 0 Refill(s), Pharmacy: [facility]/pharmacy #[id number], 155, cm, 12/15/23 10:32:00 EST, [...] TABS 1 tablet daily CALCIUM CARB-CHOLECALCIFEROL TABS [id number] Vidya Babin DRIVER/REFUSE COLLECTOR calcium carbonate 1500 mg oral tablet (12 sources) Start: 023 End: 024 calcium (as carbonate) 600 mg oral tablet Dose : 600 mg = 1 tab(s), Oral, qDay, # 90 tab(s), 3 Refill(s), Pharmacy: [facility]/pharmacy #[id number], 156.5, cm, 09/11/22 11:11:00 EDT, [...] on above: Take 3 tablets by mo uth once daily. cyclobenzaprine hydrochloride 10 mg oral tablet (17 sources) Muscle Relaxant Start: 014 End: 025 [...] qAM, # 90 tab(s), 1 Refill(s), Pharmacy: [place] [id number], 154.5, cm, 11/18/21 13:32:00 EDT, Height, kg, [...] MULTIVITAMINS CAPS 1 capsule daily MULTIPLE VITAMIN [id number] Jane Troy multivitamin tablet (2 sources) take [...] Auto (Unsp spec) [#/Vol] 2.13 10*3/uL 0.83-4.51 [facility] Absolute neutrophil countOrd ered By: Jairon Medel on 10-16-2024 Neutrophils (Bld) [#/Vol] 4.1 10*3/uL 2.0-7.7 [facility] Anion gap in Serum or Plasma Ordered By: Jairon Medel on 10-16-2024 Anion gap [Moles/Vol] 13 mmol/L 5-15 [facility] Automated lymphocyte count a s percentage of total leukocytesOrdered By: Jairon Medel on 10-16-2024 Lymphocytes/100 WBC Auto (Unsp spec) 29.5 % 19-41 [facility] BUN/creatinine ratioOrdered By: Jairon Medel on 10-16-2024 Urea nitrogen/Creatinine [Mass ratio] 22.8 mg/mg High 10-20 [facility] Basophil percentageOrdered B y: Jairon Medel on 10-16-2024 Basophils/100 WBC (Bld) 0.8 % 0-1 [facility] Carbon dioxide, total [Moles /volume] in Central venous bloodOrdered By: Jairon Medel on 10-16-2024 CO2 [Moles/Vol] 22.8 mmol/L 21.0-32.0 [facility] Chloride assayOrdered By: Pooja Medel on 10-16-2024 Chloride [Moles/Vol] 104 mmol/L 98-108 [facility] Eosinophil percentageOrdered By: Jairon Medel on 10-16-2024 Eosinophils/100 WBC (Bld) 3.2 % 0-5 [facility] Erythrocyte distribution wid th ratioOrdered By: Jairon Medel on 10-16-2024 Erythrocyte distribution width (RBC) [Ratio] 13.2 % 11.6-14.6 [facility] Erythrocyte distribution wid th standard deviationOrdered By: Jairon Medel on 10-16-2024 Erythrocyte distribution width (RBC) [Ratio] 44.1 fl High 35.1-43.9 [facility] Glomerular filtration rate ( GFR) estimation/1.73 sq m using serum, plasma, or whole bOrdered By: Carrillodiagonalmakenzie Medel on 10-16-2024 GFR/1.73 sq M.predicted among non-blacks MDRD (S/P/Bld) [Vol rate/Area] 51 mL/min/{1.73_m2} Low >60 [facility] Comment on above: mL/min/1.73m2 CKD-EP I Creatinine Equation (2020) Hematocrit Auto (Bld) [Volum e fraction]Ordered By: Jairon Medel on 10-16-2024 Hematocrit (Bld) [Volume fraction] 32.8 % Low 37-47 [facility] Hemoglobin measurementOrdere d By: Jairon Medel on 10-16-2024 Hemoglobin (Bld) [Mass/Vol] 10.0 g/dL Low 12.0-15.0 [facility] Immature granulocytes/100 WB C Auto (Bld)Ordered By: Jairon Medel on 10-16-2024 Immature granulocytes/100 WBC (Bld) 0.300 % 0.0-0.9 [facility] Comment on above: IG% - Immature Granu locytes (promyelocytes, myelocytes and metamyelocytes) > 1% indicates that a LEFT SHIFT is Present. MCV (mean corpuscular volume ) determinationOrdered By: Jairon Medel on 10-16-2024 MCV (RBC) [Entitic vol] 91.4 fL 81-99 [facility] Mean corpuscular hemoglobin (MCH) determinationOrdered By: Jairon Medel 10-16-2024 MCH (RBC) [Entitic mass] 27.9 pg 27.0-32.0 [facility] Mean corpuscular hemoglobin concentration (MCHC) determinationOrdered By: Jairon Medel on 10-16-2024 MCHC (RBC) [Mass/Vol] 30.5 g/dL Low 32-36 [facility] Mean platelet volume determi nationOrdered By: Jairon Medel on 10-16-2024 Platelet mean volume (Bld) [Entitic vol] 10.6 fL 6.2-12.0 [facility] Monocyte percentageOrdered B y: Jairon Medel on 10-16-2024 Monocytes/100 WBC (Bld) 9.4 % 0-10 [facility] Neutrophil percentageOrdered By: Jairon Medel on 10-16-2024 Neutrophils/100 WBC (Bld) 56.8 % 47-70 [facility] Nucleated red blood cell per centageOrdered By: Jairon Medel on 10-16-2024 Nucleated RBC/100 WBC (Bld) [Ratio] 0 % 0-5 [facility] Platelet countOrdered By: Pooja Medel on 10-16-2024 Platelets (Bld) [#/Vol] 273 10*3/uL 150-450 [facility] Potassium measurement (mass/ volume)Ordered By: Goldiemakenzie Torojenifersophia on 10-16-2024 Potassium (Unsp spec) [Mass/Vol] 4.2 mmol/L 3.3-5.1 [facility] RBC Auto (Bld) [#/Vol]Ordere d By: Jairon Medel on 10-16-2024 RBC (Bld) [#/Vol] 3.59 10*6/uL Low 4.2-5.4 [facility] Serum creatinine measurement (mass/volume)Ordered By: Jairon Cortezjenifersophia on 10-16-2024 Creatinine [Mass/Vol] 1.07 mg/dL 0.70-1.20 [facility] Serum glucose measurement (m ass/volume)Ordered By: Jairon Cortezjenifersophia on 10-16-2024 Glucose [Mass/Vol] 76 mg/dL 70-99 [facility] Serum or plasma calcium krissy urement (mass/volume)Ordered By: Poojasreekanthmahadmakenzie Torojenifersophia on 10-16-2024 Calcium [Mass/Vol] 9.7 mg/dL 7.6-11.0 [facility] Serum or plasma urea nitroge n measurement (mass/volume)Ordered By: Jairon Torojenifersophia on 10-16-2024 Urea nitrogen [Mass/Vol] 24 mg/dL High 4-19 [facility] Sodium levelOrdered By: Carrillo feliciano Cortezjenifersophia on 10-16-2024 Sodium [Moles/Vol] 139 mmol/L 133-145 [facility] White blood cell (WBC) count Ordered By: Poojasreekanthmahadmakenzie Torojenifersophia on 10-16-2024 WBC (Bld) [#/Vol] 7.2 10*3/uL 4.4-11.0 [facility] Absolute lymphocyte countOrd ered By: Carrillomahadmakenzie Torojenifersophia on 09-18-2024 Lymphocytes Auto (Unsp spec) [#/Vol] 1.93 10*3/uL 0.83-4.51 [facility] Absolute neutrophil countOrd ered By: Poojasreekanthbraden Cortezjenifersophia on 09-18-2024 Neutrophils (Bld) [#/Vol] 3.1 10*3/uL 2.0-7.7 [facility] Anion gap in Serum or Plasma Ordered By: Jairon Torojenifersophia on 09-18-2024 Anion gap [Moles/Vol] 11 mmol/L 5-15 [facility] Automated lymphocyte count a s percentage of total leukocytesOrdered By: Jairon Torojenifersophia on 09-18-2024 Lymphocytes/100 WBC Auto (Unsp spec) 34.0 % 19-41 [facility] BUN/creatinine ratioOrdered By: Poojasreekanthmahadmakenzie Torojenifersophia on 09-18-2024 Urea nitrogen/Creatinine [Mass ratio] 23.1 mg/mg High 10-20 [facility] Basophil percentageOrdered B y: Jairon Torojenifersophia on 09-18-2024 Basophils/100 WBC (Bld) 0.7 % 0-1 [facility] Carbon dioxide, total [Moles /volume] in Central venous bloodOrdered By: Jairon Medel on 09-18-2024 CO2 [Moles/Vol] 23.8 mmol/L 21.0-32.0 [facility] Chloride assayOrdered By: Pooja Medel on 09-18-2024 Chloride [Moles/Vol] 106 mmol/L 98-108 [facility] Eosinophil percentageOrdered By: Jairon Medel on 09-18-2024 Eosinophils/100 WBC (Bld) 2.1 % 0-5 [facility] Erythrocyte distribution wid th ratioOrdered By: sreekanthdiagonalmakenzie Medel on 09-18-2024 Erythrocyte distribution width (RBC) [Ratio] 13.6 % 11.6-14.6 [facility] Erythrocyte distribution wid th standard deviationOrdered By: sreekanthdiagonalmakenzie Medel on 09-18-2024 Erythrocyte distribution width (RBC) [Ratio] 45.4 fl High 35.1-43.9 [facility] Glomerular filtration rate ( GFR) estimation/1.73 sq m using serum, plasma, or whole bOrdered By: Jairon Medel on 09-18-2024 GFR/1.73 sq M.predicted among non-blacks MDRD (S/P/Bld) [Vol rate/Area] 59 mL/min/{1.73_m2} Low >60 [facility] Comment on above: mL/min/1.73m2 CKD-EP I Creatinine Equation (2020) Hematocrit Auto (Bld) [Volum e fraction]Ordered By: margarette Medel on 09-18-2024 Hematocrit (Bld) [Volume fraction] 31.9 % Low 37-47 [facility] Hemoglobin measurementOrdere d By: Jairon Medel on 09-18-2024 Hemoglobin (Bld) [Mass/Vol] 9.9 g/dL Low 12.0-15.0 [facility] Immature granulocytes/100 WB C Auto (Bld)Ordered By: Jairon Medel on 09-18-2024 Immature granulocytes/100 WBC (Bld) 0.400 % 0.0-0.9 [facility] Comment on above: IG% - Immature Granu locytes (promyelocytes, myelocytes and metamyelocytes) > 1% indicates that a LEFT SHIFT is Present. MCV (mean corpuscular volume ) determinationOrdered By: Jairon Medel on 09-18-2024 MCV (RBC) [Entitic vol] 91.7 fL 81-99 [facility] Mean corpuscular hemoglobin (MCH) determinationOrdered By: Jairon Torojenifersophia on 09-18-2024 MCH (RBC) [Entitic mass] 28.4 pg 27.0-32.0 [facility] Mean corpuscular hemoglobin concentration (MCHC) determinationOrdered By: Jairon Torojenifersophia on 09-18-2024 MCHC (RBC) [Mass/Vol] 31.0 g/dL Low 32-36 [facility] Mean platelet volume determi nationOrdered By: Jairon Torojenifersophia on 09-18-2024 Platelet mean volume (Bld) [Entitic vol] 10.9 fL 6.2-12.0 [facility] Monocyte percentageOrdered B y: Jairon Torojenifersophia on 09-18-2024 Monocytes/100 WBC (Bld) 7.9 % 0-10 [facility] Neutrophil percentageOrdered By: sreekanthdiagonalmakenzie Torojenifersophia on 09-18-2024 Neutrophils/100 WBC (Bld) 54.9 % 47-70 [facility] Nucleated red blood cell per centageOrdered By: Poojasreekanthmahadmakenzie Torojenifersophia on 09-18-2024 Nucleated RBC/100 WBC (Bld) [Ratio] 0 % 0-5 [facility] Platelet countOrdered By: Pooja meghanmakenzie Torojenifersophia on 09-18-2024 Platelets (Bld) [#/Vol] 247 10*3/uL 150-450 [facility] Potassium measurement (mass/ volume)Ordered By: Jairon Torojenifersophia on 09-18-2024 Potassium (Unsp spec) [Mass/Vol] 4.1 mmol/L 3.3-5.1 [facility] RBC Auto (Bld) [#/Vol]Ordere d By: Jairon Medel on 09-18-2024 RBC (Bld) [#/Vol] 3.48 10*6/uL Low 4.2-5.4 [facility] Serum creatinine measurement (mass/volume)Ordered By: Jairon Medel on 09-18-2024 Creatinine [Mass/Vol] 0.94 mg/dL 0.70-1.20 [facility] Serum glucose measurement (m ass/volume)Ordered By: Jairon Medel on 09-18-2024 Glucose [Mass/Vol] 86 mg/dL 70-99 [facility] Serum or plasma calcium krissy urement (mass/volume)Ordered By: Jairon Medel on 09-18-2024 Calcium [Mass/Vol] 9.9 mg/dL 7.6-11.0 [facility] Serum or plasma urea nitroge n measurement (mass/volume)Ordered By: Jairon Medel on 09-18-2024 Urea nitrogen [Mass/Vol] 22 mg/dL High 4-19 [facility] Sodium levelOrdered By: Carrillo Medel on 09-18-2024 Sodium [Moles/Vol] 141 mmol/L 133-145 [facility] White blood cell (WBC) count Ordered By: Jairon Medel on 09-18-2024 WBC (Bld) [#/Vol] 5.7 10*3/uL 4.4-11.0 [facility] Bilirubin directOrdered By: Jairon Medel on 08-28-2024 Bilirubin.direct [Mass/Vol] 0.12 mg/dL 0.00-0.30 [facility] Bilirubin, totalOrdered By: Jairon Medel on 08-28-2024 Bilirubin [Mass/Vol] 0.23 mg/dL 0.00-1.30 [facility] Calculated very low density lipoprotein (VLDL) cholesterol measurementOrdered By: Jairon Medel on 08-28-2024 Calculated very low density lipoprotein (VLDL) cholesterol measurement 23 mg/dL 5-40 [facility] LDL calc ser/plasOrdered By: Jairon Medel on 08-28-2024 Cholesterol in LDL [Mass/Vol] 46 mg/dL [facility] Comment on above: Ipjtmkfshm=854-574 m g/dL & Higher Yfgw=832 mg/dL or greater Laboratory - Chemistry and C hemistry - challengeOrdered By: Jairon Medel on 08-28-2024 AST [Catalytic activity/Vol] 15 U/L <32 [facility] Screening total cholesterol/ high density lipoprotein (HDL) cholesterol ratioOrdered By: Jairon Medel on 08-28-2024 Cholesterol.total/Luisa sterol in HDL [Mass ratio] 2.33 {ratio} [facility] Serum globulin measurementOr dered By: Jairon Medel on 08-28-2024 Globulin (S) [Mass/Vol] 2.2 g/dL 2.2-4.2 [facility] Serum or plasma alanine crane otransferase (ALT) measurementOrdered By: Jairon Meedl on 08-28-2024 ALT [Catalytic activity/Vol] 9 U/L <35 [facility] Serum or plasma albumin krissy urement (mass/volume)Ordered By: Jairon Medel on 08-28-2024 Albumin [Mass/Vol] 3.7 g/dL 3.4-4.8 [facility] Serum or plasma alkaline luis sphatase measurementOrdered By: Jairon Medel on 08-28-2024 ALP [Catalytic activity/Vol] 73 U/L 35-104 [facility] Serum or plasma cholesterol in HDL measurement (mass/volume)Ordered By: Jairon Medel on 08-28-2024 Cholesterol in HDL [Mass/Vol] 52 mg/dL >40 [facility] Comment on above: National Cholesterol Education Program (NCEP) guidelines:<40 mg/dL: Low HDL-cholesterol (major risk factor for CHD)>= 60 mg/dL: High HDL-cholesterol (negative risk factor for CHD)HDL-cholesterol is affected by a number of factors, e.g. smoking, exercise, hormones, sex and age. Serum or plasma cholesterol measurement (mass/volume)Ordered By: Jairon Medel on 08-28-2024 Cholesterol [Mass/Vol] 121 mg/dL <201 [facility] Comment on above: Cholesterol level, D esirable <200 mg/dLBorderline high cholesterol 200-239 mg/dLHigh cholesterol >=240 mg/dLRecommendations of the NCEP Adult Treatment Panel for the following risk-cutoff thresholds for the [place] population. Serum or plasma valproate me asurement (mass/volume)Ordered By: Goldiemakenzie Torojenifersophia on 08-28-2024 Valproate [Mass/Vol] 14 ug/mL Low 50-100 [facility] Comment on above: Valproic Acid concen trations >100 ug/mL are potentially toxic. Total proteinOrdered By: Masoudsophia rosales Cortezjenifersophia on 08-28-2024 Protein [Mass/Vol] 5.9 g/dL 5.9-8.4 [facility] Triglycerides measurementOrd ered By: Jairon Cortezjenifersophia on 08-28-2024 Triglyceride [Mass/Vol] 115 mg/dL <199 [facility] Comment on above: The drugs N-Acetylcy steine and Metamizole may falsely depress this assay. Normal range: <150 mg/dLBorderline High: 150-199 mg/dLHigh: 200-499 mg/dLVery High: >500 mg/dL Absolute lymphocyte countOrd ered By: Carrillomahadmakenzie Torojenifersophia on 08-21-2024 Lymphocytes Auto (Unsp spec) [#/Vol] 1.69 10*3/uL 0.83-4.51 [facility] Absolute neutrophil countOrd ered By: Poojasreekanthbraden Cortezdorcas on 08-21-2024 Neutrophils (Bld) [#/Vol] 4.3 10*3/uL 2.0-7.7 [facility] Anion gap in Serum or Plasma Ordered By: Jairon Torojenifersophia on 08-21-2024 Anion gap [Moles/Vol] 10 mmol/L 5-15 [facility] Automated lymphocyte count a s percentage of total leukocytesOrdered By: Poojasreekanthmahadmakenzie Torojenifersophia on 08-21-2024 Lymphocytes/100 WBC Auto (Unsp spec) 24.9 % 19-41 [facility] BUN/creatinine ratioOrdered By: Poojasreekanthmahadmakenzie Torojenifersophia on 08-21-2024 Urea nitrogen/Creatinine [Mass ratio] 21.2 mg/mg High 10-20 [facility] Basophil percentageOrdered B y: Poojasreekanthmahadmakenzie Torojenifersophia on 08-21-2024 Basophils/100 WBC (Bld) 0.7 % 0-1 [facility] Carbon dioxide, total [Moles /volume] in Central venous bloodOrdered By: Jairon Medel on 08-21-2024 CO2 [Moles/Vol] 24.4 mmol/L 21.0-32.0 [facility] Chloride assayOrdered By: Pooja Medel on 08-21-2024 Chloride [Moles/Vol] 108 mmol/L 98-108 [facility] Eosinophil percentageOrdered By: Jairon Medel 08-21-2024 Eosinophils/100 WBC (Bld) 1.9 % 0-5 [facility] Erythrocyte distribution wid th ratioOrdered By: sreekanthdiagonalmakenzie Medel on 08-21-2024 Erythrocyte distribution width (RBC) [Ratio] 14.2 % 11.6-14.6 [facility] Erythrocyte distribution wid th standard deviationOrdered By: sreekanthdiagonalmakenzie Medel on 08-21-2024 Erythrocyte distribution width (RBC) [Ratio] 47.2 fl High 35.1-43.9 [facility] Glomerular filtration rate ( GFR) estimation/1.73 sq m using serum, plasma, or whole bOrdered By: Jairon Medel on 08-21-2024 GFR/1.73 sq M.predicted among non-blacks MDRD (S/P/Bld) [Vol rate/Area] 67 mL/min/{1.73_m2} >60 [facility] Comment on above: mL/min/1.73m2 CKD-EP I Creatinine Equation (2020) Hematocrit Auto (Bld) [Volum e fraction]Ordered By: Jairon Medel 08-21-2024 Hematocrit (Bld) [Volume fraction] 31.9 % Low 37-47 [facility] Hemoglobin measurementOrdere d By: Jairon Medel 08-21-2024 Hemoglobin (Bld) [Mass/Vol] 10.2 g/dL Low 12.0-15.0 [facility] Immature granulocytes/100 WB C Auto (Bld)Ordered By: Jairon Medel on 08-21-2024 Immature granulocytes/100 WBC (Bld) 0.100 % 0.0-0.9 [facility] Comment on above: IG% - Immature Granu locytes (promyelocytes, myelocytes and metamyelocytes) > 1% indicates that a LEFT SHIFT is Present. MCV (mean corpuscular volume ) determinationOrdered By: Jairon Medel on 08-21-2024 MCV (RBC) [Entitic vol] 91.7 fL 81-99 [facility] Mean corpuscular hemoglobin (MCH) determinationOrdered By: Jairon Medel on 08-21-2024 MCH (RBC) [Entitic mass] 29.3 pg 27.0-32.0 [facility] Mean corpuscular hemoglobin concentration (MCHC) determinationOrdered By: Jairon Medel on 08-21-2024 MCHC (RBC) [Mass/Vol] 32.0 g/dL 32-36 [facility] Mean platelet volume determi nationOrdered By: Jairon Medel on 08-21-2024 Platelet mean volume (Bld) [Entitic vol] 10.6 fL 6.2-12.0 [facility] Monocyte percentageOrdered B y: Jairon Medel on 08-21-2024 Monocytes/100 WBC (Bld) 9.0 % 0-10 [facility] Neutrophil percentageOrdered By: [facility] Cent[facility] Medel on 08-21-2024 Neutrophils/100 WBC (Bld) 63.4 % 47-70 [facility] Nucleated red blood cell per centageOrdered By: Jairon Medel on 08-21-2024 Nucleated RBC/100 WBC (Bld) [Ratio] 0 % 0-5 [facility] Platelet countOrdered By: Pooja sreekanthbraden Medel on 08-21-2024 Platelets (Bld) [#/Vol] 232 10*3/uL 150-450 [facility] Potassium measurement (mass/ volume)Ordered By: Jairon Medel on 08-21-2024 Potassium (Unsp spec) [Mass/Vol] 4.4 mmol/L 3.3-5.1 [facility] RBC Auto (Bld) [#/Vol]Ordere d By: Jairon Medel on 08-21-2024 RBC (Bld) [#/Vol] 3.48 10*6/uL Low 4.2-5.4 [facility] Serum creatinine measurement (mass/volume)Ordered By: Jairon Medel on 08-21-2024 Creatinine [Mass/Vol] 0.85 mg/dL 0.70-1.20 [facility] Serum glucose measurement (m ass/volume)Ordered By: Jairon Medel on 08-21-2024 Glucose [Mass/Vol] 95 mg/dL 70-99 [facility] Serum or plasma calcium krissy urement (mass/volume)Ordered By: Jairon Medel on 08-21-2024 Calcium [Mass/Vol] 9.4 mg/dL 7.6-11.0 [facility] Serum or plasma urea nitroge n measurement (mass/volume)Ordered By: Jairon Medel on 08-21-2024 Urea nitrogen [Mass/Vol] 18 mg/dL 4-19 [facility] Sodium levelOrdered By: Carrillo Medel on 08-21-2024 Sodium [Moles/Vol] 142 mmol/L 133-145 [facility] White blood cell (WBC) count Ordered By: Jairon Medel on 08-21-2024 WBC (Bld) [#/Vol] 6.8 10*3/uL 4.4-11.0 [facility] Emergency Department Summary on 07-24-2024 Emergency Department Summary [facility] Medical Records Department [address] [place] [address] Emergency Department Summary 07/24/24 MR#: [id number] Acct: [id number] Name: CT DALTON Rep #: [id number] : 1940 83 From: Jean Claude Harry [...] PO DAILY 04/20/17 04/27/17 0 8:00 History jotlfqokgwrt-Nc-kios-m inerals 1 ea PO DAILY 04/20/17 Unknown [...] range of motion. 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 Neurologically she is awake and alert. She answers questions she does have dementia and some confusion. She does follow commands. Const Vital Signs: 07/24/24 01:24 07/24/24 01:24 Temperature 98 F Temperature Source Oral Pulse Rate 53 L Respirator (more content not included)... Normal [facility] HIP, UNI W/ Pelvis 2-3 Views on 07-24-2024 HIP, UNI W/ Pelvis 2-3 Views [facility] Imaging Services [address] [place], [place] [address] HIP, UNI W/ Pelvis 2-3 Views MR#: [id number] Acct: [id number] Name: CT DALTON Rep #: [id number] : 1940 F 83 From: Lauri mason MD PCP: Dr. Jairon Medel MD Status: REG ER Study: HIP, UNI W/ Pelvis 2-3 Views Date of Exam: Exam# [id number] Ordering Dr: Jean Claude Harry MD PROCEDURE: [...] Right hip moderate degenerative changes. Reading Location: [place] [address] CC: Dr. Jairon Medel MD; Dr. Jean Claude Harry MD Protective Signal Operations Supervisor: Signed Normal [facility] Absolute lymphocyte countOrd ered By: Jairon Medel on 06-26-2024 Lymphocytes Auto (Unsp spec) [#/Vol] 2.05 10*3/uL 0.83-4.51 [facility] Absolute neutrophil countOrd ered By: Jairon Medel on 06-26-2024 Neutrophils (Bld) [#/Vol] 3.9 10*3/uL 2.0-7.7 [facility] Anion gap in Serum or Plasma Ordered By: Jairon Medel on 06-26-2024 Anion gap [Moles/Vol] 9 mmol/L - [facility] Automated lymphocyte count a s percentage of total leukocytesOrdered By: Jairon Medel on 06-26-2024 Lymphocytes/100 WBC Auto (Unsp spec) 30.5 % - [facility] BUN/creatinine ratioOrdered By: Jairon Medel on 06-26-2024 Urea nitrogen/Creatinine [Mass ratio] 20.9 mg/mg High 10-20 [facility] Basophil percentageOrdered B y: Carrillomahadmakenzie Torodorcas on 06-26-2024 Basophils/100 WBC (Bld) 0.4 % 0-1 [facility] Carbon dioxide, total [Moles /volume] in Central venous bloodOrdered By: Jairon Torojenifersophia on 06-26-2024 CO2 [Moles/Vol] 23.5 mmol/L 21.0-32.0 [facility] Chloride assayOrdered By: Pooja meghanmakenzie Medel on 06-26-2024 Chloride [Moles/Vol] 107 mmol/L 98-108 [facility] Eosinophil percentageOrdered By: Poojasreekanthmahadmakenzie Torojenifersophia on 06-26-2024 Eosinophils/100 WBC (Bld) 1.9 % 0-5 [facility] Erythrocyte distribution wid th ratioOrdered By: sreekanthbraden Cortezjenifersophia on 06-26-2024 Erythrocyte distribution width (RBC) [Ratio] 14.1 % 11.6-14.6 [facility] Erythrocyte distribution wid th standard deviationOrdered By: sreekanthdiagonalmakenzie Torojenifersophia on 06-26-2024 Erythrocyte distribution width (RBC) [Ratio] 46.5 fl High 35.1-43.9 [facility] Glomerular filtration rate ( GFR) estimation/1.73 sq m using serum, plasma, or whole bOrdered By: Poojamargarette Torojenifersophia on 06-26-2024 GFR/1.73 sq M.predicted among non-blacks MDRD (S/P/Bld) [Vol rate/Area] 55 mL/min/{1.73_m2} Low >60 [facility] Comment on above: mL/min/1.73m2 CKD-EP I Creatinine Equation (2020) Hematocrit Auto (Bld) [Volum e fraction]Ordered By: Jairon Medel on 06-26-2024 Hematocrit (Bld) [Volume fraction] 32.7 % Low 37-47 [facility] Hemoglobin measurementOrdere d By: Jairon Medel on 06-26-2024 Hemoglobin (Bld) [Mass/Vol] 10.1 g/dL Low 12.0-15.0 [facility] Immature granulocytes/100 WB C Auto (Bld)Ordered By: Jairon Medel on 06-26-2024 Immature granulocytes/100 WBC (Bld) 0.400 % 0.0-0.9 [facility] Comment on above: IG% - Immature Granu locytes (promyelocytes, myelocytes and metamyelocytes) > 1% indicates that a LEFT SHIFT is Present. MCV (mean corpuscular volume ) determinationOrdered By: Jairon Medel on 06-26-2024 MCV (RBC) [Entitic vol] 90.3 fL 81-99 [facility] Mean corpuscular hemoglobin (MCH) determinationOrdered By: Carrillodiagonalmakenzie Medel on 06-26-2024 MCH (RBC) [Entitic mass] 27.9 pg 27.0-32.0 [facility] Mean corpuscular hemoglobin concentration (MCHC) determinationOrdered By: Jairon Medel on 06-26-2024 MCHC (RBC) [Mass/Vol] 30.9 g/dL Low 32-36 [facility] Mean platelet volume determi nationOrdered By: Jairon Medel on 06-26-2024 Platelet mean volume (Bld) [Entitic vol] 10.3 fL 6.2-12.0 [facility] Monocyte percentageOrdered B y: Jairno Medel on 06-26-2024 Monocytes/100 WBC (Bld) 8.8 % 0-10 [facility] Neutrophil percentageOrdered By: Jairon Medel on 06-26-2024 Neutrophils/100 WBC (Bld) 58.0 % 47-70 [facility] Nucleated red blood cell per centageOrdered By: Jairon Medel on 06-26-2024 Nucleated RBC/100 WBC (Bld) [Ratio] 0 % 0-5 [facility] Platelet countOrdered By: Pooja Medel on 06-26-2024 Platelets (Bld) [#/Vol] 242 10*3/uL 150-450 [facility] Potassium measurement (mass/ volume)Ordered By: Jairon Medel on 06-26-2024 Potassium (Unsp spec) [Mass/Vol] 4.3 mmol/L 3.3-5.1 [facility] RBC Auto (Bld) [#/Vol]Ordere d By: Goldiemakenzie Torojenifersophia on 06-26-2024 RBC (Bld) [#/Vol] 3.62 10*6/uL Low 4.2-5.4 [facility] Serum creatinine measurement (mass/volume)Ordered By: Jairon Medel on 06-26-2024 Creatinine [Mass/Vol] 1.01 mg/dL 0.70-1.20 [facility] Serum glucose measurement (m ass/volume)Ordered By: Jairon Medel on 06-26-2024 Glucose [Mass/Vol] 89 mg/dL 70-99 [facility] Serum or plasma calcium krissy urement (mass/volume)Ordered By: Jairon Medel on 06-26-2024 Calcium [Mass/Vol] 9.6 mg/dL 7.6-11.0 [facility] Serum or plasma urea nitroge n measurement (mass/volume)Ordered By: Jairon Medel on 06-26-2024 Urea nitrogen [Mass/Vol] 21 mg/dL High 4-19 [facility] Sodium levelOrdered By: Carrillo feliciano Gianfranco on 06-26-2024 Sodium [Moles/Vol] 140 mmol/L 133-145 [facility] White blood cell (WBC) count Ordered By: Jairon Medel on 06-26-2024 WBC (Bld) [#/Vol] 6.7 10*3/uL 4.4-11.0 [facility] Absolute lymphocyte countOrd ered By: Jairon Medel on 05-29-2024 Lymphocytes Auto (Unsp spec) [#/Vol] 2.09 10*3/uL 0.83-4.51 [facility] Absolute neutrophil countOrd ered By: Jairon Medel on 05-29-2024 Neutrophils (Bld) [#/Vol] 3.4 10*3/uL 2.0-7.7 [facility] Anion gap in Serum or Plasma Ordered By: Jairon Medel on 05-29-2024 Anion gap [Moles/Vol] 10 mmol/L 5-15 [facility] Automated lymphocyte count a s percentage of total leukocytesOrdered By: Jaiorn Medel on 05-29-2024 Lymphocytes/100 WBC Auto (Unsp spec) 34.4 % - [facility] BUN/creatinine ratioOrdered By: Jairon Medel on 05-29-2024 Urea nitrogen/Creatinine [Mass ratio] 16.9 mg/mg 10-20 [facility] Basophil percentageOrdered B y: Jairon Medel on 05-29-2024 Basophils/100 WBC (Bld) 1.2 % High 0-1 [facility] Bilirubin directOrdered By: Jairon Medel on 05-29-2024 Bilirubin.direct [Mass/Vol] 0.17 mg/dL 0.00-0.30 [facility] Bilirubin, totalOrdered By: Jairon Medel on 05-29-2024 Bilirubin [Mass/Vol] 0.35 mg/dL 0.00-1.30 [facility] Carbon dioxide, total [Moles /volume] in Central venous bloodOrdered By: Jairon Medel on 05-29-2024 CO2 [Moles/Vol] 25.1 mmol/L 21.0-32.0 [facility] Chloride assayOrdered By: Pooja Mdeel on 05-29-2024 Chloride [Moles/Vol] 105 mmol/L 98-108 [facility] Eosinophil percentageOrdered By: Jairon Medel on 05-29-2024 Eosinophils/100 WBC (Bld) 1.6 % 0-5 [facility] Erythrocyte distribution wid th (RBC) [Ratio]Ordered By: Jairon Medel on 05-29-2024 Erythrocyte distribution width (RBC) [Entitic vol] 41.0 fL 35.1-43.9 [facility] Erythrocyte distribution wid th ratioOrdered By: Jairon Medel on 05-29-2024 Erythrocyte distribution width (RBC) [Ratio] 13.1 % 11.6-14.6 [facility] Erythrocyte distribution wid th standard deviationOrdered By: Jairon Medel on 05-29-2024 Erythrocyte distribution width (RBC) [Ratio] 41.0 fl 35.1-43.9 [facility] GFR/1.73 sq M.predicted hua g non-blacks MDRD (S/P/Bld) [Vol rate/Area]Ordered By: Jairon Medel on 05-29-2024 Estimated GFR (MDRD) Non-Af Amer 50 Low >60 [facility] Comment on above: mL/min/1.73m2 CKD-EP I Creatinine Equation (2020) Glomerular filtration rate ( GFR) estimation/1.73 sq m using serum, plasma, or whole bOrdered By: Jairon Medel on 05-29-2024 GFR/1.73 sq M.predicted among non-blacks MDRD (S/P/Bld) [Vol rate/Area] 50 mL/min/{1.73_m2} Low >60 [facility] Comment on above: mL/min/1.73m2 CKD-EP I Creatinine Equation (2020) Hematocrit Auto (Bld) [Volum e fraction]Ordered By: Jairon Medel on 05-29-2024 Hematocrit (Bld) [Volume fraction] 33.4 % Low 37-47 [facility] Hemoglobin measurementOrdere d By: Jairon Medel on 05-29-2024 Hemoglobin (Bld) [Mass/Vol] 10.9 g/dL Low 12.0-15.0 [facility] Immature granulocytes/100 WB C Auto (Bld)Ordered By: Jairon Medel on 05-29-2024 Immature granulocytes/100 WBC (Bld) 0.200 % 0.0-0.9 [facility] Comment on above: IG% - Immature Granu locytes (promyelocytes, myelocytes and metamyelocytes) > 1% indicates that a LEFT SHIFT is Present. Laboratory - Chemistry and C hemistry - challengeOrdered By: Jairon Medel on 05-29-2024 AST [Catalytic activity/Vol] 20 U/L <32 [facility] Lymphocytes Auto (Unsp spec) [#/Vol]Ordered By: Jairon Medel on 05-29-2024 Lymphocytes (Bld) [#/Vol] 2.09 10*3/uL 0.83-4.51 [facility] Lymphocytes/100 WBC Auto (Un sp spec)Ordered By: Jairon Medel on 05-29-2024 Lymphocytes/100 WBC (Bld) 34.4 % 19-41 [facility] MCV (mean corpuscular volume ) determinationOrdered By: Jairon Medel on 05-29-2024 MCV (RBC) [Entitic vol] 85.9 fL 81-99 [facility] Mean corpuscular hemoglobin (MCH) determinationOrdered By: Jairon Medel on 05-29-2024 MCH (RBC) [Entitic mass] 28.0 pg 27.0-32.0 [facility] Mean corpuscular hemoglobin concentration (MCHC) determinationOrdered By: Jairon Medel on 05-29-2024 MCHC (RBC) [Mass/Vol] 32.6 g/dL 32-36 [facility] Mean platelet volume determi nationOrdered By: Jairon Medel on 05-29-2024 Platelet mean volume (Bld) [Entitic vol] 10.3 fL 6.2-12.0 [facility] Monocyte percentageOrdered B y: Jairon Medel on 05-29-2024 Monocytes/100 WBC (Bld) 7.6 % 0-10 [facility] Neutrophil percentageOrdered By: Jairon Medel on 05-29-2024 Neutrophils/100 WBC (Bld) 55.0 % 47-70 [facility] Nucleated red blood cell per centageOrdered By: Jairon Medel on 05-29-2024 Nucleated RBC/100 WBC (Bld) [Ratio] 0 % 0-5 [facility] Platelet countOrdered By: Pooja Medel on 05-29-2024 Platelets (Bld) [#/Vol] 247 10*3/uL 150-450 [facility] Potassium (Unsp spec) [Mass/ Vol]Ordered By: Jairon Medel on 05-29-2024 Potassium [Moles/Vol] 4.3 mmol/L 3.3-5.1 [facility] [facility] Potassium measurement (mass/ volume)Ordered By: Jairon Medel on 05-29-2024 Potassium (Unsp spec) [Mass/Vol] 4.3 mmol/L 3.3-5.1 [facility] RBC Auto (Bld) [#/Vol]Ordere d By: Jairon Medel on 05-29-2024 RBC (Bld) [#/Vol] 3.89 10*6/uL Low 4.2-5.4 [facility] Serum creatinine measurement (mass/volume)Ordered By: Jairon Medel on 05-29-2024 Creatinine [Mass/Vol] 1.08 mg/dL 0.70-1.20 [facility] Serum globulin measurementOr dered By: Jairon Medel on 05-29-2024 Globulin (S) [Mass/Vol] 2.5 g/dL 2.2-4.2 [facility] Serum glucose measurement (m ass/volume)Ordered By: Jairon Medel on 05-29-2024 Glucose [Mass/Vol] 89 mg/dL 70-99 [facility] Serum or plasma alanine crane otransferase (ALT) measurementOrdered By: Jairon Medel on 05-29-2024 ALT [Catalytic activity/Vol] 11 U/L <35 [facility] Serum or plasma albumin krissy urement (mass/volume)Ordered By: Jairon Medel on 05-29-2024 Albumin [Mass/Vol] 4.0 g/dL 3.4-4.8 [facility] Serum or plasma alkaline luis sphatase measurementOrdered By: Jairon Medel 05-29-2024 ALP [Catalytic activity/Vol] 62 U/L 35-104 [facility] Serum or plasma calcium krissy urement (mass/volume)Ordered By: Jairon Medel on 05-29-2024 Calcium [Mass/Vol] 9.8 mg/dL 7.6-11.0 [facility] Serum or plasma urea nitroge n measurement (mass/volume)Ordered By: Jairon Medel on 05-29-2024 Urea nitrogen [Mass/Vol] 18 mg/dL 4-19 [facility] Sodium levelOrdered By: Carrillo Medel on 05-29-2024 Sodium [Moles/Vol] 140 mmol/L 133-145 [facility] Total proteinOrdered By: Masoud Medel on 05-29-2024 Protein [Mass/Vol] 6.4 g/dL 5.9-8.4 [facility] White blood cell (WBC) count Ordered By: Jairon Medel on 05-29-2024 WBC (Bld) [#/Vol] 6.1 10*3/uL 4.4-11.0 [facility] Absolute lymphocyte countOrd ered By: Jairon Medel on 05-24-2024 Lymphocytes Auto (Unsp spec) [#/Vol] 1.90 10*3/uL 0.83-4.51 [facility] Absolute neutrophil countOrd ered By: Jairon Cortezdorcas on 05-24-2024 Neutrophils (Bld) [#/Vol] 3.1 10*3/uL 2.0-7.7 [facility] Anion gap in Serum or Plasma Ordered By: Jairon Medel on 05-24-2024 Anion gap [Moles/Vol] 11 mmol/L 5-15 [facility] Automated lymphocyte count a s percentage of total leukocytesOrdered By: Jairon Cortezdorcas on 05-24-2024 Lymphocytes/100 WBC Auto (Unsp spec) 33.6 % 19-41 [facility] BUN/creatinine ratioOrdered By: Poojasreekanthbraden Cortezdorcas on 05-24-2024 Urea nitrogen/Creatinine [Mass ratio] 19.7 mg/mg 10-20 [facility] Basophil percentageOrdered B y: Jairon Medel on 05-24-2024 Basophils/100 WBC (Bld) 1.1 % High 0-1 [facility] Bilirubin, totalOrdered By: Poojasreekanthbraden Cortezjenifersophia on 05-24-2024 Bilirubin [Mass/Vol] 0.29 mg/dL 0.00-1.30 [facility] Carbon dioxide, total [Moles /volume] in Central venous bloodOrdered By: Jairon Cortezjenifersophia on 05-24-2024 CO2 [Moles/Vol] 23.5 mmol/L 21.0-32.0 [facility] Chloride assayOrdered By: Pooja Medel on 05-24-2024 Chloride [Moles/Vol] 106 mmol/L 98-108 [facility] Eosinophil percentageOrdered By: Jairon Medel on 05-24-2024 Eosinophils/100 WBC (Bld) 2.1 % 0-5 [facility] Erythrocyte distribution wid th (RBC) [Ratio]Ordered By: Jairon Medel on 05-24-2024 Erythrocyte distribution width (RBC) [Entitic vol] 41.3 fL 35.1-43.9 [facility] Erythrocyte distribution wid th ratioOrdered By: sreekanthdiagonalmakenzie Medel on 05-24-2024 Erythrocyte distribution width (RBC) [Ratio] 13.2 % 11.6-14.6 [facility] Erythrocyte distribution wid th standard deviationOrdered By: Poojasreekanthdiagonalmakenzie Medel on 05-24-2024 Erythrocyte distribution width (RBC) [Ratio] 41.3 fl 35.1-43.9 [facility] GFR/1.73 sq M.predicted hua g non-blacks MDRD (S/P/Bld) [Vol rate/Area]Ordered By: Jairon Medel on 05-24-2024 Estimated GFR (MDRD) Non-Af Amer 52 Low >60 [facility] Comment on above: mL/min/1.73m2 CKD-EP I Creatinine Equation (2020) Glomerular filtration rate ( GFR) estimation/1.73 sq m using serum, plasma, or whole bOrdered By: Jairon Medel on 05-24-2024 GFR/1.73 sq M.predicted among non-blacks MDRD (S/P/Bld) [Vol rate/Area] 52 mL/min/{1.73_m2} Low >60 [facility] Comment on above: mL/min/1.73m2 CKD-EP I Creatinine Equation (2020) Hematocrit Auto (Bld) [Volum e fraction]Ordered By: Jairon Medel on 05-24-2024 Hematocrit (Bld) [Volume fraction] 33.2 % Low 37-47 [facility] Hemoglobin A1c percentageOrd ered By: Jairon Medel on 05-24-2024 HbA1c (Bld) [Mass fraction] 5.5 % <5.7 [facility] Comment on above: Normal < 5.7 % Predi abetic 5.7 - 6.4 % Diabetic >or= 6.5 % Please note range changes. Hemoglobin measurementOrdere d By: Jairon Medle on 05-24-2024 Hemoglobin (Bld) [Mass/Vol] 10.7 g/dL Low 12.0-15.0 [facility] Immature granulocytes/100 WB C Auto (Bld)Ordered By: Jairon Medel on 05-24-2024 Immature granulocytes/100 WBC (Bld) 0.200 % 0.0-0.9 [facility] Comment on above: IG% - Immature Granu locytes (promyelocytes, myelocytes and metamyelocytes) > 1% indicates that a LEFT SHIFT is Present. Laboratory - Chemistry and C hemistry - challengeOrdered By: Jairon Medel on 05-24-2024 AST [Catalytic activity/Vol] 21 U/L <32 [facility] Lymphocytes Auto (Unsp spec) [#/Vol]Ordered By: Jairon Medel on 05-24-2024 Lymphocytes (Bld) [#/Vol] 1.90 10*3/uL 0.83-4.51 [facility] Lymphocytes/100 WBC Auto (Un sp spec)Ordered By: Jairon Medel on 05-24-2024 Lymphocytes/100 WBC (Bld) 33.6 % 19-41 [facility] MCV (mean corpuscular volume ) determinationOrdered By: Jairon Medel on 05-24-2024 MCV (RBC) [Entitic vol] 86.2 fL 81-99 [facility] Mean corpuscular hemoglobin (MCH) determinationOrdered By: Jairon Medel on 05-24-2024 MCH (RBC) [Entitic mass] 27.8 pg 27.0-32.0 [facility] Mean corpuscular hemoglobin concentration (MCHC) determinationOrdered By: Jairon Medel on 05-24-2024 MCHC (RBC) [Mass/Vol] 32.2 g/dL 32-36 [facility] Mean platelet volume determi nationOrdered By: Jairon Medel on 05-24-2024 Platelet mean volume (Bld) [Entitic vol] 10.2 fL 6.2-12.0 [facility] Monocyte percentageOrdered B y: Jairon Medel on 05-24-2024 Monocytes/100 WBC (Bld) 8.1 % 0-10 [facility] Neutrophil percentageOrdered By: Jairon Medel on 05-24-2024 Neutrophils/100 WBC (Bld) 54.9 % 47-70 [facility] Nucleated red blood cell per centageOrdered By: Jairon Medel on 05-24-2024 Nucleated RBC/100 WBC (Bld) [Ratio] 0 % 0-5 [facility] Platelet countOrdered By: Pooja Medel on 05-24-2024 Platelets (Bld) [#/Vol] 264 10*3/uL 150-450 [facility] Potassium (Unsp spec) [Mass/ Vol]Ordered By: Poojasreekanthbraden Cortezjenifersophia on 05-24-2024 Potassium [Moles/Vol] 3.9 mmol/L 3.3-5.1 [facility] Potassium measurement (mass/ volume)Ordered By: Poojasreekanthbraden Cortezdorcas on 05-24-2024 Potassium (Unsp spec) [Mass/Vol] 3.9 mmol/L 3.3-5.1 [facility] RBC Auto (Bld) [#/Vol]Ordere d By: Jairon Medel on 05-24-2024 RBC (Bld) [#/Vol] 3.85 10*6/uL Low 4.2-5.4 [facility] Serum creatinine measurement (mass/volume)Ordered By: Poojasreekanthmahadmakenzie Torojenifersophia on 05-24-2024 Creatinine [Mass/Vol] 1.05 mg/dL 0.70-1.20 [facility] Serum globulin measurementOr dered By: Jairon Cortezjenifersophia on 05-24-2024 Globulin (S) [Mass/Vol] 2.6 g/dL 2.2-4.2 [facility] Serum glucose measurement (m ass/volume)Ordered By: Poojasreekanthmahadmakenzie Torojenifersophia on 05-24-2024 Glucose [Mass/Vol] 95 mg/dL 70-99 [facility] Serum or plasma alanine crane otransferase (ALT) measurementOrdered By: Jairon Medel on 05-24-2024 ALT [Catalytic activity/Vol] 11 U/L <35 [facility] Serum or plasma albumin krissy urement (mass/volume)Ordered By: Jairon Medel on 05-24-2024 Albumin [Mass/Vol] 4.0 g/dL 3.4-4.8 [facility] Serum or plasma albumin/glob ulin mass ratioOrdered By: Jairon Medel on 05-24-2024 Albumin/Globulin [Mass ratio] 1.5 {ratio} 0.9-2.4 [facility] Serum or plasma alkaline luis sphatase measurementOrdered By: Jairon Medel on 05-24-2024 ALP [Catalytic activity/Vol] 67 U/L 35-104 [facility] Serum or plasma calcium krissy urement (mass/volume)Ordered By: Jairon Medel on 05-24-2024 Calcium [Mass/Vol] 9.9 mg/dL 7.6-11.0 [facility] Serum or plasma urea nitroge n measurement (mass/volume)Ordered By: Jairon Medel on 05-24-2024 Urea nitrogen [Mass/Vol] 21 mg/dL High 4-19 [facility] Sodium levelOrdered By: Carrillo Medel on 05-24-2024 Sodium [Moles/Vol] 141 mmol/L 133-145 [facility] Total proteinOrdered By: Masoud Medel on 05-24-2024 Protein [Mass/Vol] 6.6 g/dL 5.9-8.4 [facility] White blood cell (WBC) count Ordered By: Jairon Medel on 05-24-2024 WBC (Bld) [#/Vol] 5.7 10*3/uL 4.4-11.0 [facility] Anion gap in Serum or Plasma Ordered By: Jairon Medel on 05-15-2024 Anion gap [Moles/Vol] 10 mmol/L 5-15 [facility] BUN/creatinine ratioOrdered By: Jairon Medel on 05-15-2024 Urea nitrogen/Creatinine [Mass ratio] 15.3 mg/mg 10-20 [facility] Carbon dioxide, total [Moles /volume] in Central venous bloodOrdered By: Jairon Medel on 05-15-2024 CO2 [Moles/Vol] 25.0 mmol/L 21.0-32.0 [facility] Chloride assayOrdered By: Pooja Medel on 05-15-2024 Chloride [Moles/Vol] 108 mmol/L 98-108 [facility] GFR/1.73 sq M.predicted hua g non-blacks MDRD (S/P/Bld) [Vol rate/Area]Ordered By: Jairon Medel on 05-15-2024 Estimated GFR (MDRD) Non-Af Amer 57 Low >60 [facility] Comment on above: mL/min/1.73m2 CKD-EP I Creatinine Equation (2020) Glomerular filtration rate ( GFR) estimation/1.73 sq m using serum, plasma, or whole bOrdered By: Jairon Medel on 05-15-2024 GFR/1.73 sq M.predicted among non-blacks MDRD (S/P/Bld) [Vol rate/Area] 57 mL/min/{1.73_m2} Low >60 [facility] Comment on above: mL/min/1.73m2 CKD-EP I Creatinine Equation (2020) Potassium (Unsp spec) [Mass/ Vol]Ordered By: Jairon Medel on 05-15-2024 Potassium [Moles/Vol] 3.8 mmol/L 3.3-5.1 [facility] Potassium measurement (mass/ volume)Ordered By: Jairon Medel on 05-15-2024 Potassium (Unsp spec) [Mass/Vol] 3.8 mmol/L 3.3-5.1 [facility] Serum creatinine measurement (mass/volume)Ordered By: Jairon Medel on 05-15-2024 Creatinine [Mass/Vol] 0.98 mg/dL 0.70-1.20 [facility] Serum glucose measurement (m ass/volume)Ordered By: Jairon Medel on 05-15-2024 Glucose [Mass/Vol] 87 mg/dL 70-99 [facility] Serum or plasma calcium krissy urement (mass/volume)Ordered By: Jairon Medel on 05-15-2024 Calcium [Mass/Vol] 9.8 mg/dL 7.6-11.0 [facility] Serum or plasma urea nitroge n measurement (mass/volume)Ordered By: Jairon Cortezjenifersophia on 05-15-2024 Urea nitrogen [Mass/Vol] 15 mg/dL 4-19 [facility] Sodium levelOrdered By: Carrillo De Leonsophia on 05-15-2024 Sodium [Moles/Vol] 143 mmol/L 133-145 [facility] Absolute lymphocyte countOrd ered By: Jairon Cortezjenifersophia on 05-01-2024 Lymphocytes Auto (Unsp spec) [#/Vol] 1.90 10*3/uL 0.83-4.51 [facility] Absolute neutrophil countOrd ered By: Jairon Cortezjenifersophia on 05-01-2024 Neutrophils (Bld) [#/Vol] 2.7 10*3/uL 2.0-7.7 [facility] Anion gap in Serum or Plasma Ordered By: Jairon Cortezjenifersophia on 05-01-2024 Anion gap [Moles/Vol] 11 mmol/L 5-15 [facility] Automated lymphocyte count a s percentage of total leukocytesOrdered By: Poojasreekanthmahadmakenzie Torojenifersophia on 05-01-2024 Lymphocytes/100 WBC Auto (Unsp spec) 35.5 % 19-41 [facility] BUN/creatinine ratioOrdered By: Poojasreekanthbraden Cortezjenifersophia on 05-01-2024 Urea nitrogen/Creatinine [Mass ratio] 17.8 mg/mg 10-20 [facility] Basophil percentageOrdered B y: Jairon Cortezjenifersophia on 05-01-2024 Basophils/100 WBC (Bld) 1.5 % High 0-[address] [facility] Carbon dioxide, total [Moles /volume] in Central venous bloodOrdered By: Goldiemakenzie oTrojenifersophia on 05-01-2024 CO2 [Moles/Vol] 23.3 mmol/L 21.0-32.0 [facility] Chloride assayOrdered By: Pooja Medel on 05-01-2024 Chloride [Moles/Vol] 107 mmol/L 98-108 [facility] Eosinophil percentageOrdered By: Jairon Medel on 05-01-2024 Eosinophils/100 WBC (Bld) 2.2 % 0-5 [facility] Erythrocyte distribution wid th (RBC) [Ratio]Ordered By: Jairon Medel on 05-01-2024 Erythrocyte distribution width (RBC) [Entitic vol] 44.5 fL High 35.1-43.9 [facility] Erythrocyte distribution wid th ratioOrdered By: Jairon Medel on 05-01-2024 Erythrocyte distribution width (RBC) [Ratio] 13.0 % 11.6-14.6 [facility] Erythrocyte distribution wid th standard deviationOrdered By: Jairon Medel on 05-01-2024 Erythrocyte distribution width (RBC) [Ratio] 44.5 fl High 35.1-43.9 [facility] GFR/1.73 sq M.predicted hua g non-blacks MDRD (S/P/Bld) [Vol rate/Area]Ordered By: Jairon Medel on 05-01-2024 Estimated GFR (MDRD) Non-Af Amer 58 Low >60 [facility] Comment on above: mL/min/1.73m2 CKD-EP I Creatinine Equation (2020) Glomerular filtration rate ( GFR) estimation/1.73 sq m using serum, plasma, or whole bOrdered By: Jairon Medel on 05-01-2024 GFR/1.73 sq M.predicted among non-blacks MDRD (S/P/Bld) [Vol rate/Area] 58 mL/min/{1.73_m2} Low >60 [facility] Comment on above: mL/min/1.73m2 CKD-EP I Creatinine Equation (2020) Hematocrit Auto (Bld) [Volum e fraction]Ordered By: Jairon Medel on 05-01-2024 Hematocrit (Bld) [Volume fraction] 37.3 % 37-47 [facility] Hemoglobin measurementOrdere d By: Jairon Medel on 05-01-2024 Hemoglobin (Bld) [Mass/Vol] 11.3 g/dL Low 12.0-15.0 [facility] Immature granulocytes/100 WB C Auto (Bld)Ordered By: Jairon Medel on 05-01-2024 Immature granulocytes/100 WBC (Bld) 1.100 % High 0.0-0.9 [facility] Comment on above: IG% - Immature Granu locytes (promyelocytes, myelocytes and metamyelocytes) > 1% indicates that a LEFT SHIFT is Present. Lymphocytes Auto (Unsp spec) [#/Vol]Ordered By: Jairon Medel on 05-01-2024 Lymphocytes (Bld) [#/Vol] 1.90 10*3/uL 0.83-4.51 [facility] Lymphocytes/100 WBC Auto (Un sp spec)Ordered By: Jairon Medel on 05-01-2024 Lymphocytes/100 WBC (Bld) 35.5 % 19-41 [facility] MCV (mean corpuscular volume ) determinationOrdered By: Jairon Medel on 05-01-2024 MCV (RBC) [Entitic vol] 93.5 fL 81-99 [facility] Mean corpuscular hemoglobin (MCH) determinationOrdered By: margarette Medel on 05-01-2024 MCH (RBC) [Entitic mass] 28.3 pg 27.0-32.0 [facility] Mean corpuscular hemoglobin concentration (MCHC) determinationOrdered By: Jairon Medel on 05-01-2024 MCHC (RBC) [Mass/Vol] 30.3 g/dL Low 32-36 [facility] Mean platelet volume determi nationOrdered By: Jairon Medel on 05-01-2024 Platelet mean volume (Bld) [Entitic vol] 10.2 fL 6.2-12.0 [facility] Monocyte percentageOrdered B y: Jairon Medel on 05-01-2024 Monocytes/100 WBC (Bld) 9.0 % 0-10 [facility] Neutrophil percentageOrdered By: Jairon Medel on 05-01-2024 Neutrophils/100 WBC (Bld) 50.7 % 47-70 [facility] Nucleated red blood cell per centageOrdered By: Jairon Medel on 05-01-2024 Nucleated RBC/100 WBC (Bld) [Ratio] 0 % 0-5 [facility] Platelet countOrdered By: Pooja Medel on 05-01-2024 Platelets (Bld) [#/Vol] 235 10*3/uL 150-450 [facility] Potassium (Unsp spec) [Mass/ Vol]Ordered By: Jairon Medel on 05-01-2024 Potassium [Moles/Vol] 4.3 mmol/L 3.3-5.1 [facility] Potassium measurement (mass/ volume)Ordered By: Jairon Medel on 05-01-2024 Potassium (Unsp spec) [Mass/Vol] 4.3 mmol/L 3.3-5.1 [facility] RBC Auto (Bld) [#/Vol]Ordere d By: Jairon Medel on 05-01-2024 RBC (Bld) [#/Vol] 3.99 10*6/uL Low 4.2-5.4 [facility] Serum creatinine measurement (mass/volume)Ordered By: Jairon Medel on 05-01-2024 Creatinine [Mass/Vol] 0.96 mg/dL 0.70-1.20 [facility] Serum glucose measurement (m ass/volume)Ordered By: Jairon Medel on 05-01-2024 Glucose [Mass/Vol] 89 mg/dL 70-99 [facility] Serum or plasma calcium krissy urement (mass/volume)Ordered By: Jairon Medel on 05-01-2024 Calcium [Mass/Vol] 9.8 mg/dL 7.6-11.0 [facility] Serum or plasma urea nitroge n measurement (mass/volume)Ordered By: Jairon Medel on 05-01-2024 Urea nitrogen [Mass/Vol] 17 mg/dL 4-19 [facility] Sodium levelOrdered By: Carrillo Medel on 05-01-2024 Sodium [Moles/Vol] 141 mmol/L 133-145 [facility] White blood cell (WBC) count Ordered By: Jairon Medel on 05-01-2024 WBC (Bld) [#/Vol] 5.4 10*3/uL 4.4-11.0 [facility] Absolute lymphocyte countOrd ered By: Carrillomahadmakenzie Torojenifersophia on 04-03-2024 Lymphocytes Auto (Unsp spec) [#/Vol] 1.70 10*3/uL 0.83-4.51 [facility] Absolute neutrophil countOrd ered By: Carrillomahadmakenzie Torojenifersophia on 04-03-2024 Neutrophils (Bld) [#/Vol] 3.0 10*3/uL 2.0-7.7 [facility] Automated lymphocyte count a s percentage of total leukocytesOrdered By: Jairon Medel on 04-03-2024 Lymphocytes/100 WBC Auto (Unsp spec) 32.1 % 19-41 [facility] Basophil percentageOrdered B y: Jairon Medel on 04-03-2024 Basophils/100 WBC (Bld) 1.3 % High 0-1 [facility] Blood urea nitrogen (BUN)/cr eatinine ratioOrdered By: Jairon Medel on 04-03-2024 Urea nitrogen/Creatinine [Mass ratio] 21.1 mg/mg High 10-20 [facility] Carbon dioxide measurementOr dered By: Jairon Medel on 04-03-2024 CO2 [Moles/Vol] 27.0 mmol/L 21.0-32.0 [facility] Chloride measurementOrdered By: Jairon Medel on 04-03-2024 Chloride [Moles/Vol] 111 mmol/L High 98-107 [facility] Eosinophil percentageOrdered By: Jairon Medel on 04-03-2024 Eosinophils/100 WBC (Bld) 2.3 % 0-5 [facility] Erythrocyte distribution wid th (RBC) [Ratio]Ordered By: Jairon Medel on 04-03-2024 Erythrocyte distribution width (RBC) [Entitic vol] 43.2 fL 35.1-43.9 [facility] Erythrocyte distribution wid th ratioOrdered By: Jairon Medel on 04-03-2024 Erythrocyte distribution width (RBC) [Ratio] 13.2 % 11.6-14.6 [facility] Erythrocyte distribution wid th standard deviationOrdered By: Poojasreekanthmahadmakenzie Medel on 04-03-2024 Erythrocyte distribution width (RBC) [Ratio] 43.2 fl 35.1-43.9 [facility] Estimated glomerular filtrat ion rate (GFR) AmericanOrdered By: Jairon Medel on 04-03-2024 Estimated GFR (MDRD) Amer 72 mL/min >60 [facility] Comment on above: GFR Calc Glomerular filtration rate ( GFR) estimationOrdered By: Jairon Medel on 04-03-2024 Estimated GFR (MDRD) Non-Af Amer 59 mL/min Low >60 [facility] Comment on above: Non- GFR Calc GFR/1.73 sq M.predicted among non-blacks MDRD (S/P/Bld) [Vol rate/Area] 59 mL/min/{1.73_m2} Low >60 [facility] Comment on above: Non- GFR Calc Glucose measurementOrdered B y: Jairon Medel on 04-03-2024 Glucose [Mass/Vol] 93 mg/dL 74-106 [facility] Hematocrit Auto (Bld) [Volum e fraction]Ordered By: Jairon Medel on 04-03-2024 Hematocrit (Bld) [Volume fraction] 31.6 % Low 37-47 [facility] Hemoglobin measurementOrdere d By: Jairon Medel on 04-03-2024 Hemoglobin (Bld) [Mass/Vol] 9.7 g/dL Low 12.0-15.0 [facility] Immature granulocytes/100 WB C Auto (Bld)Ordered By: margarette Medel on 04-03-2024 Immature granulocytes/100 WBC (Bld) 0.200 % 0.0-0.9 [facility] Comment on above: IG% - Immature Granu locytes (promyelocytes, myelocytes and metamyelocytes) > 1% indicates that a LEFT SHIFT is Present. Lymphocytes Auto (Unsp spec) [#/Vol]Ordered By: Jairon Medel on 04-03-2024 Lymphocytes (Bld) [#/Vol] 1.70 10*3/uL 0.83-4.51 [facility] Lymphocytes/100 WBC Auto (Un sp spec)Ordered By: Jairon Medel on 04-03-2024 Lymphocytes/100 WBC (Bld) 32.1 % 19-41 [facility] MCV (mean corpuscular volume ) determinationOrdered By: Jairon Medel on 04-03-2024 MCV (RBC) [Entitic vol] 91.1 fL 81-99 [facility] Mean corpuscular hemoglobin (MCH) determinationOrdered By: Jairon Medel on 04-03-2024 MCH (RBC) [Entitic mass] 28.0 pg 27.0-32.0 [facility] Mean corpuscular hemoglobin concentration (MCHC) determinationOrdered By: Jairon Medel on 04-03-2024 MCHC (RBC) [Mass/Vol] 30.7 g/dL Low 32-36 [facility] Mean platelet volume determi nationOrdered By: Jairon Medel on 04-03-2024 Platelet mean volume (Bld) [Entitic vol] 9.9 fL 6.2-12.0 [facility] Monocyte percentageOrdered B y: Jairon Medel on 04-03-2024 Monocytes/100 WBC (Bld) 8.3 % 0-10 [facility] Neutrophil percentageOrdered By: Jairon Medel on 04-03-2024 Neutrophils/100 WBC (Bld) 55.8 % 47-70 [facility] Nucleated red blood cell per centageOrdered By: Jairon Medel on 04-03-2024 Nucleated RBC/100 WBC (Bld) [Ratio] 0 % 0-5 [facility] Platelet countOrdered By: Pooja Medel on 04-03-2024 Platelets (Bld) [#/Vol] 229 10*3/uL 150-450 [facility] Potassium measurementOrdered By: Jairon Medel on 04-03-2024 Potassium [Moles/Vol] 4.4 mmol/L 3.5-5.1 [facility] RBC Auto (Bld) [#/Vol]Ordere d By: Jairon Olejenifersophia on 04-03-2024 RBC (Bld) [#/Vol] 3.47 10*6/uL Low 4.2-5.4 [facility] Serum anion gap measurementO rdered By: Poojasreekanthmahadmakenzie Torojenifersophia on 04-03-2024 Anion gap [Moles/Vol] 6 mmol/L 5-15 [facility] Serum or plasma calcium krissy urement (mass/volume)Ordered By: Jairon Medel on 04-03-2024 Calcium [Mass/Vol] 9.4 mg/dL 8.5-10.1 [facility] Serum or plasma creatinine m easurement (mass/volume)Ordered By: Jairon Medel on 04-03-2024 Creatinine [Mass/Vol] 0.95 mg/dL 0.55-1.02 [facility] Comment on above: The validity of the calculated GFR & GFRAA in patients over 70 years has not been determined. Clinical correlation is essential. Serum or plasma urea nitroge n measurement (mass/volume)Ordered By: Jairon Medel on 04-03-2024 Urea nitrogen [Mass/Vol] 20 mg/dL High 7-18 [facility] Sodium levelOrdered By: Poojasreekanth braden Cortezjenifersophia on 04-03-2024 Sodium [Moles/Vol] 144 mmol/L 136-145 [facility] White blood cell (WBC) count Ordered By: Jairon Torojenifersophia on 04-03-2024 WBC (Bld) [#/Vol] 5.3 10*3/uL 4.4-11.0 [facility] Absolute lymphocyte countOrd ered By: Jairon Torojenifersophia on 03-27-2024 Lymphocytes Auto (Unsp spec) [#/Vol] 2.06 10*3/uL 0.83-4.51 [facility] Absolute neutrophil countOrd ered By: Carrillomahadmakenzie Torojenifersophia on 03-27-2024 Neutrophils (Bld) [#/Vol] 3.3 10*3/uL 2.0-7.7 [facility] Automated lymphocyte count a s percentage of total leukocytesOrdered By: Jairon Torojenifersophia on 03-27-2024 Lymphocytes/100 WBC Auto (Unsp spec) 33.5 % 19-41 [facility] Basophil percentageOrdered B y: Jairon Medel on 03-27-2024 Basophils/100 WBC (Bld) 0.8 % 0-1 [facility] Blood urea nitrogen (BUN)/cr eatinine ratioOrdered By: Jairon Medel on 03-27-2024 Urea nitrogen/Creatinine [Mass ratio] 19.3 mg/mg 10-20 [facility] Carbon dioxide measurementOr dered By: Jairon Medel on 03-27-2024 CO2 [Moles/Vol] 27.0 mmol/L 21.0-32.0 [facility] Chloride measurementOrdered By: Jairon Medel on 03-27-2024 Chloride [Moles/Vol] 110 mmol/L High 98-107 [facility] Eosinophil percentageOrdered By: Jairon Medel on 03-27-2024 Eosinophils/100 WBC (Bld) 2.3 % 0-5 [facility] Erythrocyte distribution wid th (RBC) [Ratio]Ordered By: Jairon Medel on 03-27-2024 Erythrocyte distribution width (RBC) [Entitic vol] 43.7 fL 35.1-43.9 [facility] Erythrocyte distribution wid th ratioOrdered By: Jairon Medel on 03-27-2024 Erythrocyte distribution width (RBC) [Ratio] 13.2 % 11.6-14.6 [facility] Erythrocyte distribution wid th standard deviationOrdered By: Jairon Medel on 03-27-2024 Erythrocyte distribution width (RBC) [Ratio] 43.7 fl 35.1-43.9 [facility] Estimated glomerular filtrat ion rate (GFR) AmericanOrdered By: Jairon Medel on 03-27-2024 Estimated GFR (MDRD) Amer 69 mL/min >60 [facility] Comment on above: GFR Calc Glomerular filtration rate ( GFR) estimationOrdered By: Jairon Medel on 03-27-2024 Estimated GFR (MDRD) Non-Af Amer 57 mL/min Low >60 [facility] Comment on above: Non- GFR Calc GFR/1.73 sq M.predicted among non-blacks MDRD (S/P/Bld) [Vol rate/Area] 57 mL/min/{1.73_m2} Low >60 [facility] Comment on above: Non- GFR Calc Glucose measurementOrdered B y: Poojasreekanthmahadmakenzie Medel on 03-27-2024 Glucose [Mass/Vol] 89 mg/dL 74-106 [facility] Hematocrit Auto (Bld) [Volum e fraction]Ordered By: Jairon Medel on 03-27-2024 Hematocrit (Bld) [Volume fraction] 30.9 % Low 37-47 [facility] Hemoglobin measurementOrdere d By: Carrillomahadmakenzie Medel on 03-27-2024 Hemoglobin (Bld) [Mass/Vol] 9.6 g/dL Low 12.0-15.0 [facility] Immature granulocytes/100 WB C Auto (Bld)Ordered By: Jairon Medel on 03-27-2024 Immature granulocytes/100 WBC (Bld) 0.500 % 0.0-0.9 [facility] Comment on above: IG% - Immature Granu locytes (promyelocytes, myelocytes and metamyelocytes) > 1% indicates that a LEFT SHIFT is Present. Lymphocytes Auto (Unsp spec) [#/Vol]Ordered By: Jairon Medel on 03-27-2024 Lymphocytes (Bld) [#/Vol] 2.06 10*3/uL 0.83-4.51 [facility] Lymphocytes/100 WBC Auto (Un sp spec)Ordered By: Jairon Medel on 03-27-2024 Lymphocytes/100 WBC (Bld) 33.5 % 19-41 [facility] MCV (mean corpuscular volume ) determinationOrdered By: Jairon Medel on 03-27-2024 MCV (RBC) [Entitic vol] 90.1 fL 81-99 [facility] Mean corpuscular hemoglobin (MCH) determinationOrdered By: Jairon Medel on 03-27-2024 MCH (RBC) [Entitic mass] 28.0 pg 27.0-32.0 [facility] Mean corpuscular hemoglobin concentration (MCHC) determinationOrdered By: Jairon Medel on 03-27-2024 MCHC (RBC) [Mass/Vol] 31.1 g/dL Low 32-36 [facility] Mean platelet volume determi nationOrdered By: Jairon Medel on 03-27-2024 Platelet mean volume (Bld) [Entitic vol] 10.2 fL 6.2-12.0 [facility] Monocyte percentageOrdered B y: Jairon Medel on 03-27-2024 Monocytes/100 WBC (Bld) 9.6 % 0-10 [facility] Neutrophil percentageOrdered By: Jairon Medel on 03-27-2024 Neutrophils/100 WBC (Bld) 53.3 % 47-70 [facility] Nucleated red blood cell per centageOrdered By: Jairon Medel on 03-27-2024 Nucleated RBC/100 WBC (Bld) [Ratio] 0 % 0-5 [facility] Platelet countOrdered By: Pooja Medel on 03-27-2024 Platelets (Bld) [#/Vol] 235 10*3/uL 150-450 [facility] Potassium measurementOrdered By: Jairon Medel on 03-27-2024 Potassium [Moles/Vol] 4.0 mmol/L 3.5-5.1 [facility] RBC Auto (Bld) [#/Vol]Ordere d By: Jairon Medel on 03-27-2024 RBC (Bld) [#/Vol] 3.43 10*6/uL Low 4.2-5.4 [facility] Serum anion gap measurementO rdered By: Jairon Medel on 03-27-2024 Anion gap [Moles/Vol] 6 mmol/L 5-15 [facility] Serum or plasma calcium krissy urement (mass/volume)Ordered By: Jairon Medel on 03-27-2024 Calcium [Mass/Vol] 9.3 mg/dL 8.5-10.1 [facility] Serum or plasma creatinine m easurement (mass/volume)Ordered By: Jairon Medel on 03-27-2024 Creatinine [Mass/Vol] 0.98 mg/dL 0.55-1.02 [facility] Comment on above: The validity of the calculated GFR & GFRAA in patients over 70 years has not been determined. Clinical correlation is essential. Serum or plasma urea nitroge n measurement (mass/volume)Ordered By: Goldiemakenzie Torojenifersophia on 03-27-2024 Urea nitrogen [Mass/Vol] 19 mg/dL High 7-18 [facility] Sodium levelOrdered By: Poojasreekanth braden Cortezjenifersophia on 03-27-2024 Sodium [Moles/Vol] 143 mmol/L 136-145 [facility] White blood cell (WBC) count Ordered By: Jairon Cortezjenifersophia on 03-27-2024 WBC (Bld) [#/Vol] 6.2 10*3/uL 4.4-11.0 [facility] 64-YD-Sdhspoa DOrdered By: Sophia claudia Cortezjenifersophia on 02-28-2024 Vitamin D 25-Hydroxy 60.8 ng/mL [facility] Comment on above: Vitamin D 25(OH) Sta tus Range Deficiency <20 ng/mL (50nmol/L) Insufficiency 20 - 30 ng/mL (50 - 75 nmol/L) Sufficiency 30 - 100 ng/mL (75 - 250 nmol/L) Toxicity >100 ng/mL (>250 nmol/L) Absolute lymphocyte countOrd ered By: Jairon Cortezjenifersophia on 02-28-2024 Lymphocytes Auto (Unsp spec) [#/Vol] 1.75 10*3/uL 0.83-4.51 [facility] Absolute neutrophil countOrd ered By: Jairon Cortezjenifersophia on 02-28-2024 Neutrophils (Bld) [#/Vol] 3.9 10*3/uL 2.0-7.7 [facility] Albumin to globulin ratioOrd ered By: Jairon Cortezdorcas on 02-28-2024 Albumin/Globulin [Mass ratio] 1.0 {ratio} 0.9-2.4 [facility] Automated lymphocyte count a s percentage of total leukocytesOrdered By: Jairon Cortezjenifersophia on 02-28-2024 Lymphocytes/100 WBC Auto (Unsp spec) 27.3 % 19-41 [facility] Basophil percentageOrdered B y: Jairon Medel on 02-28-2024 Basophils/100 WBC (Bld) 0.8 % 0-1 [facility] Bilirubin, totalOrdered By: Jairon Medel on 02-28-2024 Bilirubin [Mass/Vol] 0.20 mg/dL 0.20-1.00 [facility] Comment on above: For patients on eltr ombopag therapy, use of Dimension Har[place] TBIL is not recommended. Blood urea nitrogen (BUN)/cr eatinine ratioOrdered By: Jairon Medel on 02-28-2024 Urea nitrogen/Creatinine [Mass ratio] 24.1 mg/mg High 10-20 [facility] Carbon dioxide measurementOr dered By: Jairon Medel on 02-28-2024 CO2 [Moles/Vol] 27.0 mmol/L 21.0-32.0 [facility] Chloride measurementOrdered By: Jairon Medel on 02-28-2024 Chloride [Moles/Vol] 111 mmol/L High 98-107 [facility] Eosinophil percentageOrdered By: Jairon Medel on 02-28-2024 Eosinophils/100 WBC (Bld) 2.3 % 0-5 [facility] Erythrocyte distribution wid th (RBC) [Ratio]Ordered By: Jairon Medel on 02-28-2024 Erythrocyte distribution width (RBC) [Entitic vol] 43.7 fL 35.1-43.9 [facility] Erythrocyte distribution wid th ratioOrdered By: Jairon Medel on 02-28-2024 Erythrocyte distribution width (RBC) [Ratio] 13.4 % 11.6-14.6 [facility] Erythrocyte distribution wid th standard deviationOrdered By: Jairon Medel on 02-28-2024 Erythrocyte distribution width (RBC) [Ratio] 43.7 fl 35.1-43.9 [facility] Estimated glomerular filtrat ion rate (GFR) AmericanOrdered By: Jairon Medel on 02-28-2024 Estimated GFR (MDRD) Amer 72 mL/min >60 [facility] Comment on above: GFR Calc Glomerular filtration rate ( GFR) estimationOrdered By: Jairon Medel on 02-28-2024 Estimated GFR (MDRD) Non-Af Amer 59 mL/min Low >60 [facility] Comment on above: Non- GFR Calc GFR/1.73 sq M.predicted among non-blacks MDRD (S/P/Bld) [Vol rate/Area] 59 mL/min/{1.73_m2} Low >60 [facility] Comment on above: Non- GFR Calc Glucose measurementOrdered B y: Jairon Medel on 02-28-2024 Glucose [Mass/Vol] 93 mg/dL 74-106 [facility] Hematocrit Auto (Bld) [Volum e fraction]Ordered By: Jairon Medel on 02-28-2024 Hematocrit (Bld) [Volume fraction] 32.1 % Low 37-47 [facility] Hemoglobin measurementOrdere d By: Jairon Medel on 02-28-2024 Hemoglobin (Bld) [Mass/Vol] 9.9 g/dL Low 12.0-15.0 [facility] High density lipoprotein (HD L) measurementOrdered By: Jairon Medel on 02-28-2024 Cholesterol in HDL [Mass/Vol] 58 mg/dL >40 [facility] Comment on above: The drugs N-Acetylcy steine and Metamizole may falsely depress this assay. Reference Range HDL <40 mg/dL Low HDL Cholesterol HDL >or= 60 mg/dL High HDL Cholesterol Immature granulocytes/100 WB C Auto (Bld)Ordered By: Jairon Medel on 02-28-2024 Immature granulocytes/100 WBC (Bld) 0.300 % 0.0-0.9 [facility] Comment on above: IG% - Immature Granu locytes (promyelocytes, myelocytes and metamyelocytes) > 1% indicates that a LEFT SHIFT is Present. Laboratory - Chemistry and C hemistry - challengeOrdered By: Jairon Medel on 02-28-2024 AST [Catalytic activity/Vol] 15 U/L 15-37 [facility] Low density lipoprotein (LDL ) cholesterol measurementOrdered By: Jairon Medel on 02-28-2024 Cholesterol in LDL [Mass/Vol] 67 mg/dL 0-130 [facility] Lymphocytes Auto (Unsp spec) [#/Vol]Ordered By: Jairon Medel on 02-28-2024 Lymphocytes (Bld) [#/Vol] 1.75 10*3/uL 0.83-4.51 [facility] Lymphocytes/100 WBC Auto (Un sp spec)Ordered By: Jairon Medel on 02-28-2024 Lymphocytes/100 WBC (Bld) 27.3 % 19-41 [facility] MCV (mean corpuscular volume ) determinationOrdered By: Jairon Medel on 02-28-2024 MCV (RBC) [Entitic vol] 89.4 fL 81-99 [facility] Mean corpuscular hemoglobin (MCH) determinationOrdered By: Jairon Medel on 02-28-2024 MCH (RBC) [Entitic mass] 27.6 pg 27.0-32.0 [facility] Mean corpuscular hemoglobin concentration (MCHC) determinationOrdered By: Jairon Medel on 02-28-2024 MCHC (RBC) [Mass/Vol] 30.8 g/dL Low 32-36 [facility] Mean platelet volume determi nationOrdered By: Jairon Medel on 02-28-2024 Platelet mean volume (Bld) [Entitic vol] 9.6 fL 6.2-12.0 [facility] Monocyte percentageOrdered B y: Jairon Medel on 02-28-2024 Monocytes/100 WBC (Bld) 8.7 % 0-10 [facility] Neutrophil percentageOrdered By: Jairon Medel on 02-28-2024 Neutrophils/100 WBC (Bld) 60.6 % 47-70 [facility] Nucleated red blood cell per centageOrdered By: Jairon Medel on 02-28-2024 Nucleated RBC/100 WBC (Bld) [Ratio] 0 % 0-5 [facility] Platelet countOrdered By: Pooja Medel on 02-28-2024 Platelets (Bld) [#/Vol] 261 10*3/uL 150-450 [facility] Potassium measurementOrdered By: Jairon Medel on 02-28-2024 Potassium [Moles/Vol] 4.1 mmol/L 3.5-5.1 [facility] RBC Auto (Bld) [#/Vol]Ordere d By: Jairon Medel on 02-28-2024 RBC (Bld) [#/Vol] 3.59 10*6/uL Low 4.2-5.4 [facility] Serum anion gap measurementO rdered By: Jairon Medel on 02-28-2024 Anion gap [Moles/Vol] 4 mmol/L Low 5-15 [facility] Serum globulin measurementOr dered By: Jairon Medel on 02-28-2024 Globulin (S) [Mass/Vol] 2.9 g/dL 2.2-4.[address] [facility] Serum or plasma alanine crane otransferase (ALT) measurementOrdered By: Jairon Medel on 02-28-2024 ALT [Catalytic activity/Vol] 17 U/L 13-56 [facility] Serum or plasma albumin krissy urement (mass/volume)Ordered By: Jairon Medel on 02-28-2024 Albumin [Mass/Vol] 2.8 g/dL Low 3.2-5.0 [facility] Serum or plasma alkaline luis sphatase measurementOrdered By: Jairon Medel on 02-28-2024 ALP [Catalytic activity/Vol] 63 U/L 45-117 [facility] Serum or plasma calcium krissy urement (mass/volume)Ordered By: Jairon Medel on 02-28-2024 Calcium [Mass/Vol] 9.6 mg/dL 8.5-10.1 [facility] Serum or plasma cholesterol measurement (mass/volume)Ordered By: Jairon Medel on 02-28-2024 Cholesterol [Mass/Vol] 134 mg/dL <200 [facility] Comment on above: <200 mg/dL Desirable 200-240 mg/dL Borderline >240 mg/dL High Risk Serum or plasma creatinine m easurement (mass/volume)Ordered By: Jairon Medel on 02-28-2024 Creatinine [Mass/Vol] 0.95 mg/dL 0.55-1.02 [facility] Comment on above: The validity of the calculated GFR & GFRAA in patients over 70 years has not been determined. Clinical correlation is essential. Serum or plasma urea nitroge n measurement (mass/volume)Ordered By: Goldiemakenzie Torojenifersophia on 02-28-2024 Urea nitrogen [Mass/Vol] 23 mg/dL High 7-18 [facility] Sodium levelOrdered By: Poojasreekanth braden Cortezdorcas on 02-28-2024 Sodium [Moles/Vol] 143 mmol/L 136-145 [facility] Total proteinOrdered By: Masoud rosales Cortezdorcas on 02-28-2024 Protein [Mass/Vol] 5.7 g/dL Low 6.4-8.2 [facility] Triglycerides measurementOrd ered By: Jairon Cortezdorcas on 02-28-2024 Triglyceride [Mass/Vol] 43 mg/dL <199 [facility] Comment on above: The drugs N-Acetylcy steine and Metamizole may falsely depress this assay.Serum Triglycerides Reference Interval Normal <150 mg/dL Borderline high 150 - 199 mg/dL High 200 - 499 mg/dL Very High > or = 500 mg/dL Valproate levelOrdered By: Sophia claudia Cortezjenifersophia on 02-28-2024 Valproic Acid (Depakene) Level 26 ug/mL Low 50-100 [facility] Very low density lipoprotein (VLDL) cholesterol measurementOrdered By: Jairon Cortezjenifersophia on 02-28-2024 Very low density lipoprotein (VLDL) cholesterol measurement 9 mg/dL 5-40 [facility] VLDL Cholesterol 9 mg/dL 5-40 [facility] White blood cell (WBC) count Ordered By: Carrillomahadmakenzie Torojenifersophia on 02-28-2024 WBC (Bld) [#/Vol] 6.4 10*3/uL 4.4-11.0 [facility] .Auto Diffon 02-10-2024 Basophil, Absolute 0.1 10 3/mcL Normal 0.0-0.2 [facility] Comment on above: Performed By: #### B MP, MG, ANEU, ADIFF, CBC, GFR ####[address] [address] Basophils/100 WBC (Bld) 1.1 % Normal 0.0-2.[address] [facility] Comment on above: Performed By: #### B MP, MG, ANEU, ADIFF, CBC, GFR ####[id number] [place], [place] [address] Eosinophil, Absolute 0.1 10 3/mcL Normal 0.0-0.7 [facility] Comment on above: Performed By: #### B MP, MG, ANEU, ADIFF, CBC, GFR ####[place] [place], [place] [address] Eosinophils/100 WBC (Bld) 1.8 % Normal 0.0-7.0 [facility] Comment on above: Performed By: #### B MP, MG, ANEU, ADIFF, CBC, GFR ####[address] [place], [place] [address] Lymphocyte, Absolute 1.4 10 3/mcL Normal 0.9-4.3 [facility] Comment on above: Performed By: #### B MP, MG, ANEU, ADIFF, CBC, GFR ####[address] [address] Lymphocytes/100 WBC (Bld) 25.4 % Normal 20.0-40.0 [facility] Comment on above: Performed By: #### B MP, MG, ANEU, ADIFF, CBC, GFR ####[place] [address] [place] [address] Monocyte, Absolute 0.4 10 3/mcL Normal 0.1-1.4 [facility] Comment on above: Performed By: #### B MP, MG, ANEU, ADIFF, CBC, GFR ####[address] [address] Monocytes/100 WBC (Bld) 7.4 % Normal 2.0-13.[address] [facility] Comment on above: Performed By: #### B MP, MG, ANEU, ADIFF, CBC, GFR ####[address] [address] Neutrophils/100 WBC (Bld) 64.3 % Normal 50.0-75.0 [facility] Comment on above: Performed By: #### B MP, MG, ANEU, ADIFF, CBC, GFR ####[address] [place], [place] [address] .GFRon 02-10-2024 GFR 73 ml/min/1.73sqm Normal [facility] Comment on above: Result Comment: GFR Population [...] B MP, MG, ANEU, ADIFF, CBC, GFR ####[address] [place], [place] [address] GFR Non- 60 ml/min/1.73sqm Normal [facility] Comment on above: Result Comment: GFR Population [...] B MP, MG, ANEU, ADIFF, CBC, GFR ####[address] [place], [place] [address] .NEUABSon 02-10-2024 Neutrophil, Absolute 3.7 10 3/mcL Normal 2.3-8.1 [facility] Comment on above: Performed By: #### B MP, MG, ANEU, ADIFF, CBC, GFR ####[address] [place], [place] [address] BMPon 02-10-2024 BUN/Creatinine Ratio 25 ratio Normal 7-27 [facility] Comment on above: Performed By: #### B MP, MG, ANEU, ADIFF, CBC, GFR ####[address] [place], [place] [address] Calcium [Mass/Vol] 10.0 mg/dL Normal 8.4-10.2 [facility] Comment on above: Performed By: #### B MP, MG, ANEU, ADIFF, CBC, GFR ####[address] [address] Chloride [Moles/Vol] 107 mmol/L Normal 98-107 [facility] Comment on above: Performed By: #### B MP, MG, ANEU, ADIFF, CBC, GFR ####[address] [address] CO2 [Moles/Vol] 30 mmol/L Normal 23-31 [facility] Comment on above: Performed By: #### B MP, MG, ANEU, ADIFF, CBC, GFR ####[address] [address] Creatinine [Mass/Vol] 0.89 mg/dL Normal 0.55-1.02 [facility] Comment on above: Result Comment: Test ing performed on Siemens Dimension EXL analyzer using a modified kinetic Dora technique. Performed By: #### B MP, MG, ANEU, ADIFF, CBC, GFR ####[address] [place], [place] [address] Electrolyte Balance 8.0 mEq/L Normal 4.0-15.0 [facility] Comment on above: Performed By: #### B MP, MG, ANEU, ADIFF, CBC, GFR ####[place] [address] [place], [place] [address] Glucose [Mass/Vol] 111 mg/dL High 83-110 [facility] Comment on above: Performed By: #### B MP, MG, ANEU, ADIFF, CBC, GFR ####[address] [place], [place] [address] Potassium [Moles/Vol] 4.0 mmol/L Normal 3.5-5.1 [facility] Comment on above: Performed By: #### B MP, MG, ANEU, ADIFF, CBC, GFR ####[address] [place], [place] [address] Sodium [Moles/Vol] 145 mmol/L Normal 136-145 [facility] Comment on above: Performed By: #### B MP, MG, ANEU, ADIFF, CBC, GFR ####[address] [place] [address] Urea nitrogen [Mass/Vol] 22 mg/dL High 7-18 [facility] Comment on above: Performed By: #### B MP, MG, ANEU, ADIFF, CBC, GFR ####[address] [place] [address] CBCon 02-10-2024 Erythrocyte distribution width (RBC) [Ratio] 14.1 % Normal 11.5-15.5 [facility] Comment on above: Performed By: #### B MP, MG, ANEU, ADIFF, CBC, GFR ####[address] [place], [place] [address] Hematocrit (Bld) [Volume fraction] 33.2 % Low 34.0-46.0 [facility] Comment on above: Performed By: #### B MP, MG, ANEU, ADIFF, CBC, GFR ####[address] [place], [place] [address] Hgb 11.3 G/dL Low 12.0-16.0 [facility] Comment on above: Performed By: #### B MP, MG, ANEU, ADIFF, CBC, GFR ####[address] [place] [id number] MCH (RBC) [Entitic mass] 28.8 pg Normal 27.0-33.0 [facility] Comment on above: Performed By: #### B MP, MG, ANEU, ADIFF, CBC, GFR ####[address] [place], [place] [address] MCHC 34.1 G/dL Normal 32.0-36.0 [facility] Comment on above: Performed By: #### B MP, MG, ANEU, ADIFF, CBC, GFR ####[address] [place], [place] [address] MCV (RBC) [Entitic vol] 84.5 fL Normal 80.0-99.[address] [facility] Comment on above: Performed By: #### B MP, MG, ANEU, ADIFF, CBC, GFR ####[address] [place], [place] [address] Platelet 272 10 3/mcL Normal 150-450 [facility] Comment on above: Performed By: #### B MP, MG, ANEU, ADIFF, CBC, GFR ####[address] [place], [place] [address] Platelet mean volume (Bld) [Entitic vol] 7.7 fL Normal 6.6-10.5 [facility] Comment on above: Performed By: #### B MP, MG, ANEU, ADIFF, CBC, GFR ####[address] [place], [place] [address] RBC 3.93 10 6/mcL Low 4.10-5.30 [facility] Comment on above: Performed By: #### B MP, MG, ANEU, ADIFF, CBC, GFR ####[address] [place], [place] [address] WBC 5.7 10 3/mcL Normal 4.5-10.8 [facility] Comment on above: Performed By: #### B MP, MG, ANEU, ADIFF, CBC, GFR ####[address] [place], [place] [address] LABORATORYOrdered By: SYSTEM SYSTEM on 02-10-2024 Basophils [...] above: Interpretive Data: T esting performed on Ztail Dimension EXL analyzer using a modified kinetic [...] 02-10-2024 Magnesium [Mass/Vol] 1.7 mg/dL Low 1.8-2.4 [facility] Comment on above: Performed By: #### B MP, MG, ANEU, ADIFF, CBC, GFR ####[address] [place], [place] [address] .Auto Diffon 02-09-2024 Basophil, Absolute 0.1 10 3/mcL Normal 0.0-0.2 [facility] Comment on above: Performed By: #### B NAFISA MCHUGH, GFR, ANEU, TROPHS, PBNP, CBC, ADIFF ####[address] [place], [place] [address] Basophils/100 WBC (Bld) 1.1 % Normal 0.0-2.[address] [facility] Comment on above: Performed By: #### B MD JEISONW, GFR, ANEU, TROPHS, PBNP, CBC, ADIFF ####[address] [place], [place] [address] Eosinophil, Absolute 0.1 10 3/mcL Normal 0.0-0.7 [facility] Comment on above: Performed By: #### B MP, MDW, GFR, ANEU, TROPHS, PBNP, CBC, ADIFF ####[place] [address] [place], [place] [address] Eosinophils/100 WBC (Bld) 1.6 % Normal 0.0-7.0 [facility] Comment on above: Performed By: #### B MP, MDW, GFR, ANEU, TROPHS, PBNP, CBC, ADIFF ####[place] [address] [place], [place] [address] Lymphocyte, Absolute 2.2 10 3/mcL Normal 0.9-4.3 [facility] Comment on above: Performed By: #### B MP, MDW, GFR, ANEU, TROPHS, PBNP, CBC, ADIFF ####[facility] [place], [place] [address] Lymphocytes/100 WBC (Bld) 29.4 % Normal 20.0-40.0 [facility] Comment on above: Performed By: #### B MP, MDW, GFR, ANEU, TROPHS, PBNP, CBC, ADIFF ####[facility] [place], [place] [address] Monocyte, Absolute 0.7 10 3/mcL Normal 0.1-1.4 [facility] Comment on above: Performed By: #### B MP, MDW, GFR, ANEU, TROPHS, PBNP, CBC, ADIFF ####[facility] [place], [place] [address] Monocytes/100 WBC (Bld) 9.6 % Normal 2.0-13.[address] [facility] Comment on above: Performed By: #### B MP, MDW, GFR, ANEU, TROPHS, PBNP, CBC, ADIFF ####[place] [place], [place] [address] Neutrophils/100 WBC (Bld) 58.3 % Normal 50.0-75.0 [facility] Comment on above: Performed By: #### B MP, MDW, GFR, ANEU, TROPHS, PBNP, CBC, ADIFF ####[address] [place], [place] [address] .GFRon 02-09-2024 GFR 67 ml/min/1.73sqm Normal [facility] Comment on above: Result Comment: GFR Population [...] MCHUGH, GFR, ANEU, TROPHS, PBNP, CBC, ADIFF ####[place] [address] [place], [place] [address] GFR Non- 55 ml/min/1.73sqm Normal [facility] Comment on above: Result Comment: GFR Population [...] MCHUGH, GFR, ANEU, TROPHS, PBNP, CBC, ADIFF ####[place] [address] [place], [place] [address] .MDWon 02-09-2024 Monocyte Distribution Width 17.09 Normal 0.00-20.00 [facility] Comment on above: Result Comment: For ED adult patients suspected of sepsis, MDW<=20.0 does not rule out sepsis or risk of sepsis Performed By: #### B NAFISA MCHUGH, GFR, ANEU, TROPHS, PBNP, CBC, ADIFF ####[address] [place], [place] [address] .NEUABSon 02-09-2024 Neutrophil, Absolute 4.4 10 3/mcL Normal 2.3-8.1 [facility] Comment on above: Performed By: #### B JEISON, NAFISA, GFR, ANEU, TROPHS, PBNP, CBC, ADIFF ####[facility] [place], [place] [address] BMPon 02-09-2024 BUN/Creatinine Ratio 26 ratio Normal 7-27 [facility] Comment on above: Performed By: #### B NAFISA MCHUGH, GFR, ANEU, TROPHS, PBNP, CBC, ADIFF ####[address] [place], [place] [address] Calcium [Mass/Vol] 10.4 mg/dL High 8.4-10.2 [facility] Comment on above: Performed By: #### B NAFISA MCHUGH, GFR, ANEU, TROPHS, PBNP, CBC, ADIFF ####[id number] [place], [place] [address] Chloride [Moles/Vol] 104 mmol/L Normal 98-107 [facility] Comment on above: Performed By: #### B NAFISA MCHUGH, GFR, ANEU, TROPHS, PBNP, CBC, ADIFF ####[address] [place], [place] [address] CO2 [Moles/Vol] 30 mmol/L Normal 23-31 [facility] Comment on above: Performed By: #### B NAFISA MCHUGH, GFR, ANEU, TROPHS, PBNP, CBC, ADIFF ####[address] [place], [place] [address] Creatinine [Mass/Vol] 0.96 mg/dL Normal 0.55-1.02 [facility] Comment on above: Result Comment: Test ing performed on Siemens Dimension EXL analyzer using a modified kinetic Dora technique. Performed By: #### B JEISON, W, GFR, ANEU, TROPHS, PBNP, CBC, ADIFF ####[address] [place], [place] [address] Electrolyte Balance 10.0 mEq/L Normal 4.0-15.0 [facility] Comment on above: Performed By: #### B MP, W, GFR, ANEU, TROPHS, PBNP, CBC, ADIFF ####[address] [place], [place] [address] Glucose [Mass/Vol] 108 mg/dL Normal 83-110 [facility] Comment on above: Performed By: #### B JEISON, W, GFR, ANEU, TROPHS, PBNP, CBC, ADIFF ####[address] [place], [place] [address] Potassium [Moles/Vol] 3.6 mmol/L Normal 3.5-5.1 [facility] Comment on above: Performed By: #### B JEISON, W, GFR, ANEU, TROPHS, PBNP, CBC, ADIFF ####Cecil [address] [place], [place] [address] Sodium [Moles/Vol] 144 mmol/L Normal 136-145 [facility] Comment on above: Performed By: #### B JEISON, W, GFR, ANEU, TROPHS, PBNP, CBC, ADIFF ####[address] [place], [place] [address] Urea nitrogen [Mass/Vol] 25 mg/dL High 7-18 [facility] Comment on above: Performed By: #### B JEISON, NAFISA, GFR, ANEU, TROPHS, PBNP, CBC, ADIFF ####[address]ec[address] [place], [place] [address] CBCon 02-09-2024 Erythrocyte distribution width (RBC) [Ratio] 14.0 % Normal 11.5-15.5 [facility] Comment on above: Performed By: #### B JEISON, W, GFR, ANEU, TROPHS, PBNP, CBC, ADIFF ####[address] [place], [place] [address] Hematocrit (Bld) [Volume fraction] 34.7 % Normal 34.0-46.0 [facility] Comment on above: Performed By: #### B NAFISA MCHUGH, GFR, ANEU, TROPHS, PBNP, CBC, ADIFF ####[address] [place], [place] [address] Hgb 11.7 G/dL Low 12.0-16.0 [facility] Comment on above: Performed By: #### B NAFISA MCHUGH, GFR, ANEU, TROPHS, PBNP, CBC, ADIFF ####[address]ec[address] [place], [place] [address] MCH (RBC) [Entitic mass] 28.7 pg Normal 27.0-33.0 [facility] Comment on above: Performed By: #### B NAFISA MCHUGH, GFR, ANEU, TROPHS, PBNP, CBC, ADIFF ####[address]ec[address] [place], [place] [address] MCHC 33.7 G/dL Normal 32.0-36.0 [facility] Comment on above: Performed By: #### B NAFISA MCHUGH, GFR, ANEU, TROPHS, PBNP, CBC, ADIFF ####[address]ec[address] [place], [place] [address] MCV (RBC) [Entitic vol] 85.0 fL Normal 80.0-99.[address] [facility] Comment on above: Performed By: #### B NAFISA MCHUGH, GFR, ANEU, TROPHS, PBNP, CBC, ADIFF ####[address] [place], [place] [address] Platelet 266 10 3/mcL Normal 150-450 [facility] Comment on above: Performed By: #### B NAFISA MCHUGH, GFR, ANEU, TROPHS, PBNP, CBC, ADIFF ####[address] [place], [place] [address] Platelet mean volume (Bld) [Entitic vol] 7.4 fL Normal 6.6-10.5 [facility] Comment on above: Performed By: #### B NAFISA MCHUGH, GFR, ANEU, TROPHS, PBNP, CBC, ADIFF ####[address]ec[address] [place], [place] [address] RBC 4.08 10 6/mcL Low 4.10-5.30 [facility] Comment on above: Performed By: #### B JEISON, NAFISA, GFR, ANEU, TROPHS, PBNP, CBC, ADIFF ####[address]ec[address] [place], [place] [address] WBC 7.6 10 3/mcL Normal 4.5-10.8 [facility] Comment on above: Performed By: #### B JEISON, NAFISA, GFR, ANEU, TROPHS, PBNP, CBC, ADIFF ####[address] [place], [place] [address] LABORATORYOrdered By: Addis Pelayo on 02-09-2024 Appearance [...] ng/L Male: 0-76 ng/L Testing performed on [employer] using a homogeneous sandwich chemiluminescent immunoassay based on [employer] technology. Urea nitrogen [Mass/Vol] 25 mg/dL High 7 - 18 mg/dL AO ADM SS Urea nitrogen/Creatinine [Mass ratio] 26 ratio Normal 7 - 27 ratio AO ADM SS WBC (Bld) [#/Vol] 7.6 103/mcL Normal 4.5 - 10.8 10^3/mcL AO Workflow SS PBNPon 02-09-2024 Natriuretic peptide B (Bld) [Mass/Vol] 3243 pg/mL High 0-450 [facility] Comment on above: Result Comment: NT-p roBNP results of less than 300 pg/mL effectively rules out acute congestive heart failure with 99% negative predictive value. Performed By: #### B NAFISA MCHUGH, GFR, ANEU, TROPHS, PBNP, CBC, ADIFF ####[address] [place], [place] [address] TROPHSon 02-09-2024 High Sensitivity Troponin I 23 ng/L Normal 0-51 [facility] Comment on above: Result Comment: High Sensitive Troponin I Reference Ranges: Female: 0-51 ng/L Male: 0-76 ng/L Testing performed on [employer] using a homogeneous sandwich chemiluminescent immunoassay based on [employer] technology. Performed By: #### B NAFISA MCHUGH, GFR, ANEU, TROPHS, PBNP, CBC, ADIFF ####[address] [place] [id number] UAon 02-09-2024 Color (U) Yellow Normal [facility] Comment on above: Performed By: #### U A ####[place] [address] [place] [address] Glucose (U) [Mass/Vol] Negative Normal Negative [facility] Comment on above: Performed By: #### U A ####[place] [address] [place] [address] Ketones Ql (U) Negative Normal Negative [facility] Comment on above: Performed By: #### U A ####[address] [place] [id number] UA Appear Clear Normal Clear [facility] Comment on above: Performed By: #### U A ####[address] [place] [address] UA Blood Negative Normal Negative [facility] Comment on above: Performed By: #### U A ####[address] [place] [address] UA Leuk Est Negative Normal Negative [facility] Comment on above: Performed By: #### U A ####[address] [place] [address]28927 UA Nitrite Negative Normal Negative [facility] Comment on above: Performed By: #### U A ####[address]ec[address] [place], [place] [address] UA pH 6.5 Normal 5.0 - 8.0 [facility] Comment on above: Performed By: #### U A ####[address] [place], [place] [address] UA Protein Negative Normal Negative [facility] Comment on above: Performed By: #### U A ####[address]ec[address] [place], [place] [address] UA Spec Grav 1.015 Normal 1.015-1.025 [facility] Comment on above: Performed By: #### U A ####[address] [place], [place] [address] UA Specimen Type Void Normal [facility] Comment on above: Performed By: #### U A ####[facility] [place], [place] [address] UA Urobilinogen 0.2 E.U./dL Normal 0.2-1.0 [facility] Comment on above: Performed By: #### U A ####[place] [address] [place], [place] [address] Urobilinogen (U) [Mass/Vol] Negative Normal Negative [facility] Comment on above: Performed By: #### U A ####[facility] [place], [place] [address] VALPRon 02-09-2024 LDose Valproic Acid: Unknown Normal [facility] Comment on above: Performed By: #### V ALPR ####[address] [place], [place] [address] Valproic Acid Lvl 30 mcg/mL Low 50-100 [facility] Comment on above: Performed By: #### V ALPR ####[address]ec[address] [place], [place] [address] XR CHEST 1 VIEWon 02-09-2024 XR CHEST [...] 02/09/2024 9:08:10 PM Ordering Provider: TRIXIE Geronimo [facility] .Urinalysis Microscopic (AO) on 01-21-2024 UA Amorphus 1+ /hpf Normal [facility] Comment on above: Performed By: #### U A, UAMICAO ####[place] [address] UA CA Ox Crystal 1+ /hpf Normal [facility] Comment on above: Performed By: #### U A, UAMICAO ####[place] [address] UA Mucous 2+ /hpf Normal [facility] Comment on above: Performed By: #### U A, UAMICAO ####[place] [address] [place] [address] UA RBC 0-5 Abnormal None Seen [facility] Comment on above: Performed By: #### U A, UAMICAO ####[address] [place] [address] UA Squam Epithelial 0-5 Abnormal None Seen [facility] Comment on above: Performed By: #### U A, UAMICAO ####[address] [place] [address] UA WBC 0-5 Abnormal None Seen [facility] Comment on above: Performed By: #### U A, UAMICAO ####[place] [address] [address] LABORATORYOrdered By: Mao Nava on 01-21-2024 Appearance [...] SS UAon 01-21-2024 Color (U) Yellow Normal [facility] Comment on above: Performed By: #### U Steffany UAMICAO ####[address] [address] Glucose (U) [Mass/Vol] Negative Normal Negative [facility] Comment on above: Performed By: #### U A, UAMICAO ####[address] [place] [address] Ketones Ql (U) Negative Normal Negative [facility] Comment on above: Performed By: #### U A, UAMICAO ####[address] [place] [address] UA Appear Clear Normal Clear [facility] Comment on above: Performed By: #### U A, UAMICAO ####[address]ec[address] [place] [address] UA Blood Negative Normal Negative [facility] Comment on above: Performed By: #### U A, UAMICAO ####[address] [place] [address] UA Leuk Est Negative Normal Negative [facility] Comment on above: Performed By: #### U A, UAMICAO ####[address] [address] UA Nitrite Negative Normal Negative [facility] Comment on above: Performed By: #### U A, UAMICAO ####[address]ec[address] [place] [address] UA pH 6.0 Normal 5.0 - 8.0 [facility] Comment on above: Performed By: #### U A, UAMICAO ####[address] [place] [address] UA Protein 30 mg/dL Normal Negative [facility] Comment on above: Performed By: #### U A, UAMICAO ####[address] [place] [address] UA Spec Grav 1.020 Normal 1.015-1.025 [facility] Comment on above: Performed By: #### U A, UAMICAO ####[address] [place] [address] UA Specimen Type Hua Catheter Normal [facility] Comment on above: Performed By: #### U A, UAMICAO ####[place] [place] [id number] UA Urobilinogen 0.2 E.U./dL Normal 0.2-1.0 [facility] Comment on above: Performed By: #### U KRISHNA Jeter ####[address] [place], [place] [address] Urobilinogen (U) [Mass/Vol] Negative Normal Negative [facility] Comment on above: Performed By: #### U KRISHNA Jeter ####[address] [place], [place] [address] US BLADDERon 01-07-2024 US BLADDER ORIGINAL EXAMINATION: [...] 01/07/2024 11:24:46 AM Ordering Provider: LARRY Geronimo [facility] .GFRon 12-29-2023 GFR 54 ml/min/1.73sqm [facility] Comment on above: Result Comment: GFR [...] Performed By: #### G FR, BMP, CAION ####[facility] [place], [place] [address] GFR Non- 44 ml/min/1.73sqm Normal [facility] Comment on above: Result Comment: GFR Population [...] mL/min/1.73 square meters Performed By: #### G FR BMP, CAION ####[address] [address] BMPon 12-29-2023 BUN/Creatinine Ratio 20 ratio Normal 7-27 [facility] Comment on above: Performed By: #### Francoise FR BMP, CAION ####[place] [address] [place], [place] [address] Calcium [Mass/Vol] 10.3 mg/dL High 8.4-10.2 [facility] Comment on above: Performed By: #### Francoise FR, BMP, CAION ####[place] [address] [place], [place] [address] Chloride [Moles/Vol] 104 mmol/L Normal 98-107 [facility] Comment on above: Performed By: #### G FR, BMP, CAION ####[place] [address] [place], [place] [address] CO2 [Moles/Vol] 31 mmol/L Normal 23-31 [facility] Comment on above: Performed By: #### G FR, BMP, CAION ####[place] [address] [place], [place] [address] Creatinine [Mass/Vol] 1.16 mg/dL High 0.55-1.02 [facility] Comment on above: Result Comment: Test ing performed on Siemens Dimension EXL analyzer using a modified kinetic Dora technique. Performed By: #### LINDA SOLIS CAION ####[address]ec[address] [place], [place] [address] Electrolyte Balance 7.0 mEq/L Normal 4.0-15.0 [facility] Comment on above: Performed By: #### LINDA SOLIS CAION ####[address] [place], [place] [address] Glucose [Mass/Vol] 92 mg/dL Normal 83-110 [facility] Comment on above: Performed By: #### LINDA SOLIS CAION ####[address] [place], [place] [address] Potassium [Moles/Vol] 4.2 mmol/L Normal 3.5-5.1 [facility] Comment on above: Performed By: #### LINDA SOLIS CAION ####[address] [place], [place] [address] Sodium [Moles/Vol] 142 mmol/L Normal 136-145 [facility] Comment on above: Performed By: #### LINDA SOLIS CAION ####[address] [place], [place] [address] Urea nitrogen [Mass/Vol] 23 mg/dL High 7-18 [facility] Comment on above: Performed By: #### LINDA SOLIS CAION ####[address] [place], [place] [address] CAIONon 12-29-2023 Calcium Ionized 1.27 mmol/L Normal 1.12-1.32 [facility] Comment on above: Performed By: #### LINDA SOLIS CAION ####[address] [place], [place] [address] LABORATORYOrdered By: SYSTEM SYSTEM on 12-29-2023 Calcium [...] 12/21/2023 4:21:17 PM Ordering Provider: LARRY Geronimo [facility] XR SPINE LUMBAR W/OBLIQUES 4 VIEWSon 12-21-2023 [...] 12/21/2023 4:34:05 PM Ordering Provider: LARRY Geronimo [facility] B12on 12-16-2023 Cobalamin (Vitamin B12) [Mass/Vol] 509 pg/mL Normal 211-911 [facility] Comment on above: Performed By: #### F ES, FERR ####[place] [address]#### B12, FOL ####[place] [address] FOLon 12-16-2023 Folate >48.00 High 5.38-24.00 [facility] Comment on above: Performed By: #### F ES, FERR ####[place] [address]#### B12, FOL ####[place] [address] .Auto Diffon 12-15-2023 Basophil, Absolute 0.1 10 3/mcL Normal 0.0-0.2 [facility] Comment on above: Performed By: #### C MP, ADIFF, CBC, GFR, PBNP, ANEU #### [address] [address] Basophils/100 WBC (Bld) 1.1 % Normal 0.0-2.5 [facility] Comment on above: Performed By: #### C MP, ADIFF, CBC, GFR, PBNP, ANEU #### [address] [address] Eosinophil, Absolute 0.1 10 3/mcL Normal 0.0-0.7 [facility] Comment on above: Performed By: #### C MP, ADIFF, CBC, GFR, PBNP, ANEU #### [address] [address] Eosinophils/100 WBC (Bld) 1.4 % Normal 0.0-7.0 [facility] Comment on above: Performed By: #### C MP, ADIFF, CBC, GFR, PBNP, ANEU #### [address] [address] Lymphocyte, Absolute 1.7 10 3/mcL Normal 0.9-4.3 [facility] Comment on above: Performed By: #### C MP, ADIFF, CBC, GFR, PBNP, ANEU #### [address] [address] Lymphocytes/100 WBC (Bld) 20.9 % Normal 20.0-40.0 [facility] Comment on above: Performed By: #### C MP, ADIFF, CBC, GFR, PBNP, ANEU #### [address] [address] Monocyte, Absolute 0.5 10 3/mcL Normal 0.1-1.4 [facility] Comment on above: Performed By: #### C MP, ADIFF, CBC, GFR, PBNP, ANEU #### [address] [address] Monocytes/100 WBC (Bld) 6.0 % Normal 2.0-13.[address] [facility] Comment on above: Performed By: #### C MP, ADIFF, CBC, GFR, PBNP, ANEU #### [address] [address] Neutrophils/100 WBC (Bld) 70.6 % Normal 50.0-75.0 [facility] Comment on above: Performed By: #### C MP, ADIFF, CBC, GFR, PBNP, ANEU #### [address] [address] .GFRon 12-15-2023 GFR 62 ml/min/1.73sqm Normal [facility] Comment on above: Result Comment: GFR Population [...] ADIFF, CBC, GFR, PBNP, ANEU #### [address] [address] GFR Non- 52 ml/min/1.73sqm Normal [facility] Comment on above: Result Comment: GFR Population [...] ADIFF, CBC, GFR, PBNP, ANEU #### [address] [address] .NEUABSon 12-15-2023 Neutrophil, Absolute 5.8 10 3/mcL Normal 2.3-8.1 [facility] Comment on above: Performed By: #### C MP, ADIFF, CBC, GFR, PBNP, ANEU #### [address] [address] CBCon 12-15-2023 Erythrocyte distribution width (RBC) [Ratio] 14.2 % Normal 11.5-15.5 [facility] Comment on above: Performed By: #### C MP, ADIFF, CBC, GFR, PBNP, ANEU #### [address] [address] Hematocrit (Bld) [Volume fraction] 34.6 % Normal 34.0-46.0 [facility] Comment on above: Performed By: #### C MP, ADIFF, CBC, GFR, PBNP, ANEU #### [address] [address] Hgb 11.7 G/dL Low 12.0-16.0 [facility] Comment on above: Performed By: #### C MP, ADIFF, CBC, GFR, PBNP, ANEU #### [address] [address] MCH (RBC) [Entitic mass] 28.7 pg Normal 27.0-33.0 [facility] Comment on above: Performed By: #### C MP, ADIFF, CBC, GFR, PBNP, ANEU #### [address] [address] MCHC 33.9 G/dL Normal 32.0-36.0 [facility] Comment on above: Performed By: #### C MP, ADIFF, CBC, GFR, PBNP, ANEU #### [address] [address] MCV (RBC) [Entitic vol] 84.8 fL Normal 80.0-99.[address] [facility] Comment on above: Performed By: #### C MP, ADIFF, CBC, GFR, PBNP, ANEU #### [address] [address] Platelet 363 10 3/mcL Normal 150-450 [facility] Comment on above: Performed By: #### C MP, ADIFF, CBC, GFR, PBNP, ANEU #### [address] [address] Platelet mean volume (Bld) [Entitic vol] 7.4 fL Normal 6.6-10.5 [facility] Comment on above: Performed By: #### C MP, ADIFF, CBC, GFR, PBNP, ANEU #### [place] [address] RBC 4.08 10 6/mcL Low 4.10-5.30 [facility] Comment on above: Performed By: #### C MP, ADIFF, CBC, GFR, PBNP, ANEU #### [place] [address] WBC 8.3 10 3/mcL Normal 4.5-10.8 [facility] Comment on above: Performed By: #### C MP, ADIFF, CBC, GFR, PBNP, ANEU #### [place] [id number] CMPon 12-15-2023 Albumin Level 3.9 G/dL Normal 3.4-4.8 [facility] Comment on above: Performed By: #### C MP, ADIFF, CBC, GFR, PBNP, ANEU #### [address] [address] Albumin/Globulin [Mass ratio] 1.4 {ratio} Normal 1.1-2.5 [facility] Comment on above: Performed By: #### C MP, ADIFF, CBC, GFR, PBNP, ANEU #### [address] [address] ALP [Catalytic activity/Vol] 72 U/L Normal 40-135 [facility] Comment on above: Performed By: #### C MP, ADIFF, CBC, GFR, PBNP, ANEU #### [address] [address] ALT [Catalytic activity/Vol] 26 U/L Normal 14-59 [facility] Comment on above: Performed By: #### C MP, ADIFF, CBC, GFR, PBNP, ANEU #### [address] [address] AST [Catalytic activity/Vol] 18 U/L Normal 10-40 [facility] Comment on above: Performed By: #### C MP, ADIFF, CBC, GFR, PBNP, ANEU #### [address] [address] Bili Total 0.4 mg/dL Normal 0.2-1.0 [facility] Comment on above: Result Comment: Use of this assay is not recommended for patients undergoing treatment with eltrombopag due to the potential for falsely elevated results. Performed By: #### C MP, ADIFF, CBC, GFR, PBNP, ANEU #### [address] [address] BUN/Creatinine Ratio 20 ratio Normal 7-27 [facility] Comment on above: Performed By: #### C MP, ADIFF, CBC, GFR, PBNP, ANEU #### [address] [address] Calcium [Mass/Vol] 10.8 mg/dL High 8.4-10.2 [facility] Comment on above: Performed By: #### C MP, ADIFF, CBC, GFR, PBNP, ANEU #### [address] [address] Chloride [Moles/Vol] 104 mmol/L Normal 98-107 [facility] Comment on above: Performed By: #### C MP, ADIFF, CBC, GFR, PBNP, ANEU #### [address] [address] CO2 [Moles/Vol] 30 mmol/L Normal 23-31 [facility] Comment on above: Performed By: #### C MP, ADIFF, CBC, GFR, PBNP, ANEU #### [address] [address] Creatinine [Mass/Vol] 1.02 mg/dL Normal 0.55-1.02 [facility] Comment on above: Result Comment: Test ing performed on Siemens Dimension EXL analyzer using a modified kinetic Dora technique. Performed By: #### C MP, ADIFF, CBC, GFR, PBNP, ANEU #### [address] [address] Electrolyte Balance 7.0 mEq/L Normal 4.0-15.0 [facility] Comment on above: Performed By: #### C MP, ADIFF, CBC, GFR, PBNP, ANEU #### [address] [address] Globulin 2.8 G/dL Normal [facility] Comment on above: Performed By: #### C MP, ADIFF, CBC, GFR, PBNP, ANEU #### [address] [address] Glucose [Mass/Vol] 105 mg/dL Normal 83-110 [facility] Comment on above: Performed By: #### C MP, ADIFF, CBC, GFR, PBNP, ANEU #### [address] [address] Potassium [Moles/Vol] 4.2 mmol/L Normal 3.5-5.1 [facility] Comment on above: Performed By: #### C MP, ADIFF, CBC, GFR, PBNP, ANEU #### [address] [address] Sodium [Moles/Vol] 141 mmol/L Normal 136-145 [facility] Comment on above: Performed By: #### C MP, ADIFF, CBC, GFR, PBNP, ANEU #### [address] [address] Total Protein 6.7 G/dL Normal 6.4-8.2 [facility] Comment on above: Performed By: #### C MP, ADIFF, CBC, GFR, PBNP, ANEU #### [address] [address] Urea nitrogen [Mass/Vol] 20 mg/dL High 7-18 [facility] Comment on above: Performed By: #### C MP, ADIFF, CBC, GFR, PBNP, ANEU #### [facility] [address] [place], [place] [address] Lucretia 12-15-2023 Ferritin [Mass/Vol] 197.0 ng/mL Normal 8.0-252.0 [facility] Comment on above: Performed By: #### F ES, FERR ####[address] [address]#### B12, FOL ####[address] [address] FESon 12-15-2023 Iron [Mass/Vol] 44 ug/dL Low 50-170 [facility] Comment on above: Performed By: #### F ES, FERR ####[place] [address]#### B12, FOL ####[place] [address] Iron Sat 15 % Normal [facility] Comment on above: Performed By: #### F ES, FERR ####[place] [address]#### B12, FOL ####[place] [address] TIBC 300 mcg/dL Normal 250-450 [facility] Comment on above: Performed By: #### F ES, FERR ####[place] [address]#### B12, FOL ####[place] [address] LABORATORYOrdered By: SYSTEM SYSTEM on 12-15-2023 Albumin [...] No growth at 48 hours. [facility] PBNPon 12-15-2023 Natriuretic peptide B (Bld) [Mass/Vol] 1968 pg/mL High 0-450 [facility] Comment on above: Result Comment: NT-p roBNP results of less than 300 pg/mL effectively rules out acute congestive heart failure with 99% negative predictive value. Performed By: #### C MP, ADIFF, CBC, GFR, PBNP, ANEU ####[address] [place], [place] [address] LABORATORYOrdered By: Domingo Masterson on 12-09-2023 Appearance [...] SS UAon 12-09-2023 Color (U) Yellow Normal [facility] Comment on above: Performed By: #### U A ####[address] [place], [place] [address] Glucose (U) [Mass/Vol] Negative Normal Negative [facility] Comment on above: Performed By: #### U A ####[address] [place], [place] [address] Ketones Ql (U) Negative Normal Negative [facility] Comment on above: Performed By: #### U A ####[place] [address] [place] [address] UA Appear Clear Normal Clear [facility] Comment on above: Performed By: #### U A ####[address] [place] [address] UA Blood Negative Normal Negative [facility] Comment on above: Performed By: #### U A ####[place] [id number] [place] [address] UA Leuk Est Negative Normal Negative [facility] Comment on above: Performed By: #### U A ####[place] [id number] [place] [address] UA Nitrite Negative Normal Negative [facility] Comment on above: Performed By: #### U A ####[place] [address] UA pH 7.5 Normal 5.0 - 8.0 [facility] Comment on above: Performed By: #### U A ####[place] [address] UA Protein Negative Normal Negative [facility] Comment on above: Performed By: #### U A ####[place] [id number] [place] [address] UA Spec Grav 1.020 Normal 1.015-1.025 [facility] Comment on above: Performed By: #### U A ####[place] [id number] [address] UA Specimen Type Clean Catch Normal [facility] Comment on above: Performed By: #### U A ####[place] [id number] [place] [address] UA Urobilinogen 0.2 E.U./dL Normal 0.2-1.0 [facility] Comment on above: Performed By: #### U A ####[place] [id number] [place] [address] Urobilinogen (U) [Mass/Vol] Negative Normal Negative [facility] Comment on above: Performed By: #### U A ####[facility] [place], [place] [address] XR HIP RIGHT W/PELVIS 4 VIEW Son [...] 11/29/2023 11:51:51 AM Ordering Provider: SONNY Geronimo [facility] .GFRon 07-08-2023 GFR 63 ml/min/1.73sqm Normal [facility] ([place]) Comment on above: Result Comment: GFR [...] ANEU, CBC, ADIFF, BMP #### [facility] [address] [place], [place] [address] GFR Non- 52 ml/min/1.73sqm Normal [facility] ([place]) Comment on above: Result Comment: GFR [...] A1C, ANEU, CBC, ADIFF, BMP #### [address] [address] BMPon 07-08-2023 BUN/Creatinine Ratio 19 ratio Normal 7-27 [facility] ([place]) Comment on above: Performed By: #### G FR, A1C, ANEU, CBC, ADIFF, BMP #### [address] [address] Calcium [Mass/Vol] 9.6 mg/dL Normal 8.4-10.2 [facility] ([place]) Comment on above: Performed By: #### G FR, A1C, ANEU, CBC, ADIFF, BMP #### [address] [address] Chloride [Moles/Vol] 106 mmol/L Normal 98-107 [facility] ([place]) Comment on above: Performed By: #### G FR, A1C, ANEU, CBC, ADIFF, BMP #### [address] [address] CO2 [Moles/Vol] 29 mmol/L Normal 23-31 [facility] ([place]) Comment on above: Performed By: #### G FR, A1C, ANEU, CBC, ADIFF, BMP #### [address] [address] Creatinine [Mass/Vol] 1.02 mg/dL Normal 0.55-1.02 [facility] ([place]) Comment on above: Performed By: #### G FR, A1C, ANEU, CBC, ADIFF, BMP #### [address] [address] Electrolyte Balance 9.0 mEq/L Normal 4.0-15.0 [facility] ([place]) Comment on above: Performed By: #### G FR, A1C, ANEU, CBC, ADIFF, BMP #### [address] [address] Glucose [Mass/Vol] 118 mg/dL High 83-110 [facility] ([place]) Comment on above: Performed By: #### G FR, A1C, ANEU, CBC, ADIFF, BMP #### [address] [address] Potassium [Moles/Vol] 3.7 mmol/L Normal 3.5-5.1 [facility] ([place]) Comment on above: Performed By: #### G FR, A1C, ANEU, CBC, ADIFF, BMP #### [address] [address] Sodium [Moles/Vol] 144 mmol/L Normal 136-145 [facility] ([place]) Comment on above: Performed By: #### G FR, A1C, ANEU, CBC, ADIFF, BMP #### [address] [address] Urea nitrogen [Mass/Vol] 19 mg/dL High 7-18 [facility] ([place]) Comment on above: Performed By: #### G FR, A1C, ANEU, CBC, ADIFF, BMP #### [address] [address] LABORATORYOrdered By: SYSTEM SYSTEM on 07-08-2023 Calcium [...] 04/14/2023 10:35:22 AM Ordering Provider: MAHAD Geronimo [facility]) METon 04-14-2023 Methylmalonic Acid 340 nmol/L Normal 0-378 [facility]) Comment on above: Result Comment: This test was developed and its performance characteristics determined by [facility]. It has not been cleared or approved by the Food and Drug Administration. Performed At: [address] [id number] Hima Lieberman MD Ph:[phone] Performed By: #### G FR, A1C, ANEU, CBC, ADIFF, BMP #### [place] [id number] [place], [place] [address] B12on 04-07-2023 Cobalamin (Vitamin B12) [Mass/Vol] 600 pg/mL Normal 211-911 [facility]) Comment on above: Performed By: #### F OL, B12 #### [place] [address] #### FT4, [id number], TSH #### [address] [address] FOLon 04-07-2023 Folate >48.00 High 5.38-24.00 [facility] ([place]) Comment on above: Performed By: #### F OL, B12 #### [place] [address] #### FT4, [id number], TSH #### [address] [address] FT4on 04-07-2023 Free T4 [Mass/Vol] 0.99 ng/dL Normal 0.76-1.46 [facility] ([place]) Comment on above: Performed By: #### F OL, B12 #### [place] [address] #### FT4, [id number], TSH #### [address] [address] LABORATORYOrdered By: SYSTEM SYSTEM on 04-07-2023 Cobalamin [...] 04-07-2023 TSH Qn 1.65 m[IU]/L Normal 0.36-3.74 [facility] ([place]) Comment on above: Performed By: #### F OL, B12 #### [place] [address] #### FT4, 773571, TSH #### [address] [address] .Auto Diffon 03-10-2023 Basophil, Absolute 0.1 10 3/mcL Normal 0.0-0.2 [facility] ([place]) Comment on above: Performed By: #### G FR, A1C, ANEU, CBC, ADIFF, BMP #### [address] [address] Basophils/100 WBC (Bld) 1.2 % Normal 0.0-2.5 [facility] ([place]) Comment on above: Performed By: #### G FR, A1C, ANEU, CBC, ADIFF, BMP #### [address] [address] Eosinophil, Absolute 0.1 10 3/mcL Normal 0.0-0.4 [facility] ([place]) Comment on above: Performed By: #### G FR, A1C, ANEU, CBC, ADIFF, BMP #### [address] [address] Eosinophils/100 WBC (Bld) 1.6 % Normal 0.0-7.0 [facility] ([place]) Comment on above: Performed By: #### G FR, A1C, ANEU, CBC, ADIFF, BMP #### [address] [address] Lymphocyte, Absolute 1.9 10 3/mcL Normal 0.8-3.9 [facility] ([place]) Comment on above: Performed By: #### G FR, A1C, ANEU, CBC, ADIFF, BMP #### [address] [address] Lymphocytes/100 WBC (Bld) 23.7 % Normal 10.0-50.0 [facility] ([place]) Comment on above: Performed By: #### G FR, A1C, ANEU, CBC, ADIFF, BMP #### [address] [address] Monocyte, Absolute 0.6 10 3/mcL Normal 0.2-1.0 [facility] ([place]) Comment on above: Performed By: #### G FR, A1C, ANEU, CBC, ADIFF, BMP #### [address] [address] Monocytes/100 WBC (Bld) 7.8 % Normal 1.7-13.0 [facility] ([place]) Comment on above: Performed By: #### G FR, A1C, ANEU, CBC, ADIFF, BMP #### [address] [address] Neutrophils/100 WBC (Bld) 65.7 % Normal 37.0-80.0 [facility] ([place]) Comment on above: Performed By: #### G FR, A1C, ANEU, CBC, ADIFF, BMP #### [address] [address] .GFRon 03-10-2023 GFR 63 ml/min/1.73sqm Normal [facility] ([place]) Comment on above: Result Comment: GFR [...] A1C, ANEU, CBC, ADIFF, BMP #### [address] [address] GFR Non- 52 ml/min/1.73sqm Normal [facility] ([place]) Comment on above: Result Comment: GFR [...] A1C, ANEU, CBC, ADIFF, BMP #### [address] [address] .NEUABSon 03-10-2023 Neutrophil, Absolute 5.2 10 3/mcL Normal 2.9-6.2 [facility] ([place]) Comment on above: Performed By: #### G FR, A1C, ANEU, CBC, ADIFF, BMP #### [place] [id number] A1Con 03-10-2023 HbA1c (Bld) [Mass fraction] 5.6 % Normal 4.3-6.4 [facility] ([place]) Comment on above: Performed By: #### G FR, A1C, ANEU, CBC, ADIFF, BMP #### [place] [id number] CBCon 03-10-2023 Erythrocyte distribution width (RBC) [Ratio] 14.7 % High 11.5-14.5 [facility] ([place]) Comment on above: Performed By: #### G FR, A1C, ANEU, CBC, ADIFF, BMP #### [place] [id number] Hematocrit (Bld) [Volume fraction] 35.6 % Low 37.0-47.0 [facility] ([place]) Comment on above: Performed By: #### G FR, A1C, ANEU, CBC, ADIFF, BMP #### [place] [address] Hgb 12.1 G/dL Normal 12.0-16.0 [facility] ([place]) Comment on above: Performed By: #### G FR, A1C, ANEU, CBC, ADIFF, BMP #### [place] [id number] MCH (RBC) [Entitic mass] 27.8 pg Normal 27.0-31.2 [facility] ([place]) Comment on above: Performed By: #### G FR, A1C, ANEU, CBC, ADIFF, BMP #### [address] [address] MCHC 34.1 G/dL Normal 33.0-37.0 [facility] ([place]) Comment on above: Performed By: #### G FR, A1C, ANEU, CBC, ADIFF, BMP #### [address] [address] MCV (RBC) [Entitic vol] 81.7 fL Normal 80.0-94.0 [facility] ([place]) Comment on above: Performed By: #### G FR, A1C, ANEU, CBC, ADIFF, BMP #### [address] [address] Platelet 300 10 3/mcL Normal 130-400 [facility] ([place]) Comment on above: Performed By: #### G FR, A1C, ANEU, CBC, ADIFF, BMP #### [address] [address] Platelet mean volume (Bld) [Entitic vol] 8.0 fL Normal 7.4-10.4 [facility] ([place]) Comment on above: Performed By: #### G FR, A1C, ANEU, CBC, ADIFF, BMP #### [address] [address] RBC 4.35 10 6/mcL Normal 4.20-5.40 [facility] ([place]) Comment on above: Performed By: #### G FR, A1C, ANEU, CBC, ADIFF, BMP #### [address] [address] WBC 8.0 10 3/mcL Normal 4.6-10.8 [facility] ([place]) Comment on above: Performed By: #### G FR, A1C, ANEU, CBC, ADIFF, BMP #### [address] [address] CMPon 03-10-2023 Chloride [Moles/Vol] 102 mmol/L Normal 98-107 [facility] ([place]) Comment on above: Performed By: #### G FR, A1C, ANEU, CBC, ADIFF, BMP #### [address] [address] Electrolyte Balance 10.0 mEq/L Normal 4.0-15.0 [facility] ([place]) Comment on above: Performed By: #### G FR, A1C, ANEU, CBC, ADIFF, BMP #### [address] [address] Potassium [Moles/Vol] 4.3 mmol/L Normal 3.5-5.1 [facility] ([place]) Comment on above: Performed By: #### G FR, A1C, ANEU, CBC, ADIFF, BMP #### [address] [address] Sodium [Moles/Vol] 141 mmol/L Normal 136-145 [facility] ([place]) Comment on above: Performed By: #### G FR, A1C, ANEU, CBC, ADIFF, BMP #### [address] [address] Albumin Level 3.7 G/dL Normal 3.4-4.8 [facility] ([place]) Comment on above: Performed By: #### G FR, A1C, ANEU, CBC, ADIFF, BMP #### [address] [address] Albumin/Globulin [Mass ratio] 1.1 {ratio} Normal 1.1-2.5 [facility] ([place]) Comment on above: Performed By: #### G FR, A1C, ANEU, CBC, ADIFF, BMP #### [address] [address] ALP [Catalytic activity/Vol] 79 U/L Normal 40-135 [facility] ([place]) Comment on above: Performed By: #### G FR, A1C, ANEU, CBC, ADIFF, BMP #### [address] [address] ALT [Catalytic activity/Vol] 24 U/L Normal 14-59 [facility] ([place]) Comment on above: Performed By: #### G FR, A1C, ANEU, CBC, ADIFF, BMP #### [address] [address] AST [Catalytic activity/Vol] 12 U/L Normal 10-40 [facility] ([place]) Comment on above: Performed By: #### G FR, A1C, ANEU, CBC, ADIFF, BMP #### [address] [address] Bili Total 0.3 mg/dL Normal 0.2-1.0 [facility] ([place]) Comment on above: Result Comment: Use of this assay is not recommended for patients undergoing treatment with eltrombopag due to the potential for falsely elevated results. Performed By: #### G FR, A1C, ANEU, CBC, ADIFF, BMP #### [address] [address] BUN/Creatinine Ratio 25 ratio Normal 7-27 [facility] ([place]) Comment on above: Performed By: #### G FR, A1C, ANEU, CBC, ADIFF, BMP #### [address] [address] Calcium [Mass/Vol] 10.1 mg/dL Normal 8.4-10.2 [facility] ([place]) Comment on above: Performed By: #### G FR, A1C, ANEU, CBC, ADIFF, BMP #### [address] [address] CO2 [Moles/Vol] 29 mmol/L Normal 23-31 [facility] ([place]) Comment on above: Performed By: #### G FR, A1C, ANEU, CBC, ADIFF, BMP #### [address] [address] Creatinine [Mass/Vol] 1.02 mg/dL Normal 0.55-1.02 [facility] ([place]) Comment on above: Performed By: #### G FR, A1C, ANEU, CBC, ADIFF, BMP #### [address] [address] Globulin 3.3 G/dL Normal [facility] ([place]) Comment on above: Performed By: #### G FR, A1C, ANEU, CBC, ADIFF, BMP #### [address] [address] Glucose [Mass/Vol] 118 mg/dL High 83-110 [facility] ([place]) Comment on above: Performed By: #### G FR, A1C, ANEU, CBC, ADIFF, BMP #### [address] [address] Total Protein 7.0 G/dL Normal 6.4-8.2 [facility] ([place]) Comment on above: Performed By: #### G FR, A1C, ANEU, CBC, ADIFF, BMP #### [address] [address] Urea nitrogen [Mass/Vol] 26 mg/dL High 7-18 [facility] ([place]) Comment on above: Performed By: #### G FR, A1C, ANEU, CBC, ADIFF, BMP #### [address] [address] LIPIDon 03-10-2023 Cholesterol [Mass/Vol] 214 mg/dL High 0-200 [facility] ([place]) Comment on above: Result Comment: Chol esterol Reference Interval: Less than 200 Desirable 200-239 Borderline high risk 240 and above High risk Performed By: #### G FR, A1C, ANEU, CBC, ADIFF, BMP #### [address] [address] Cholesterol in HDL [Mass/Vol] 62 mg/dL High 40-60 [facility] ([place]) Comment on above: Performed By: #### G FR, A1C, ANEU, CBC, ADIFF, BMP #### [address] [address] Cholesterol in LDL [Mass/Vol] 111 mg/dL Normal 0-130 [facility] ([place]) Comment on above: Performed By: #### G FR, A1C, ANEU, CBC, ADIFF, BMP #### [address] [address] Triglyceride [Mass/Vol] 205 mg/dL High 0-150 [facility] ([place]) Comment on above: Result Comment: Trig lyceride Reference Interval: Less than 150 Normal 150-199 Borderline high risk 200-499 High risk 500 or higher Very high risk Performed By: #### G FR, A1C, ANEU, CBC, ADIFF, BMP #### [place] [address] PHOSon 03-10-2023 Phosphate [Mass/Vol] 3.2 mg/dL Normal 2.3-4.1 [facility] ([place]) Comment on above: Performed By: #### G FR, A1C, ANEU, CBC, ADIFF, BMP #### [place] [address] PTHon 03-10-2023 PTH, Intact 78.2 pg/mL Normal 18.5-88.0 [facility] ([place]) Comment on above: Performed By: #### G FR, A1C, ANEU, CBC, ADIFF, BMP #### [place] [address] VIDHon 03-10-2023 Vit. D 25-Hydroxy 32.1 ng/mL Normal [facility] ([place]) Comment on above: Result Comment: Inte rpretive Values Based on Total 25(OH) Vitamin D: Deficient <20 ng/mL Insufficient 20 - <30 ng/mL Sufficient 30-100 ng/mL Performed By: #### G FR, A1C, ANEU, CBC, ADIFF, BMP #### [place] [address] BD BONE DENSITY DEXA AXIAL S KELETONon [...] at or below -2.5 SD Interpreted by: lAdo Fernandez DO Preliminary Report By: Aldo Fernandez DO Electronically signed By Aldo Fernandez DO Dictated Date: 12/14/2022 9:36:00 AM Prelim Date: 12/14/2022 9:37:25 AM Sign Date: 12/14/2022 9:37:25 AM Ordering Provider: LARRY Geronimo [facility] ([place]) .Auto Diffon 09-16-2022 Basophil, Absolute 0.1 10 3/mcL Normal 0.0-0.2 [facility] ([place]) Comment on above: Performed By: #### G FR, A1C, ANEU, CBC, ADIFF, BMP #### [address] [address] Basophils/100 WBC (Bld) 0.8 % Normal 0.0-2.5 [facility] ([place]) Comment on above: Performed By: #### G FR, A1C, ANEU, CBC, ADIFF, BMP #### [address] [address] Eosinophil, Absolute 0.2 10 3/mcL Normal 0.0-0.4 [facility] ([place]) Comment on above: Performed By: #### G FR, A1C, ANEU, CBC, ADIFF, BMP #### [address] [address] Eosinophils/100 WBC (Bld) 2.1 % Normal 0.0-7.0 [facility] ([place]) Comment on above: Performed By: #### G FR, A1C, ANEU, CBC, ADIFF, BMP #### [address] [address] Lymphocyte, Absolute 2.0 10 3/mcL Normal 0.8-3.9 [facility] ([place]) Comment on above: Performed By: #### G FR, A1C, ANEU, CBC, ADIFF, BMP #### [address] [address] Lymphocytes/100 WBC (Bld) 22.9 % Normal 10.0-50.0 [facility] ([place]) Comment on above: Performed By: #### G FR, A1C, ANEU, CBC, ADIFF, BMP #### [address] [address] Monocyte, Absolute 0.5 10 3/mcL Normal 0.2-1.0 [facility] ([place]) Comment on above: Performed By: #### G FR, A1C, ANEU, CBC, ADIFF, BMP #### [address] [address] Monocytes/100 WBC (Bld) 6.4 % Normal 1.7-13.0 [facility] ([place]) Comment on above: Performed By: #### G FR, A1C, ANEU, CBC, ADIFF, BMP #### [address] [address] Neutrophils/100 WBC (Bld) 67.8 % Normal 37.0-80.0 [facility] ([place]) Comment on above: Performed By: #### G FR, A1C, ANEU, CBC, ADIFF, BMP #### [address] [address] .GFRon 09-16-2022 GFR Non- 48 ml/min/1.73sqm Normal [facility] ([place]) Comment on above: Result Comment: GFR [...] A1C, ANEU, CBC, ADIFF, BMP #### [address] [address] GFR 59 ml/min/1.73sqm Normal [facility] ([place]) Comment on above: Result Comment: GFR [...] A1C, ANEU, CBC, ADIFF, BMP #### [address] [address] .NEUABSon 09-16-2022 Neutrophil, Absolute 5.8 10 3/mcL Normal 2.9-6.2 [facility] ([place]) Comment on above: Performed By: #### G FR, A1C, ANEU, CBC, ADIFF, BMP #### [address] [address] A1Con 09-16-2022 HbA1c (Bld) [Mass fraction] 5.7 % Normal 4.3-6.4 [facility] ([place]) Comment on above: Performed By: #### G FR, A1C, ANEU, CBC, ADIFF, BMP #### [address] [address] BMPon 09-16-2022 BUN/Creatinine Ratio 27 ratio Normal 7-27 [facility] ([place]) Comment on above: Performed By: #### G FR, A1C, ANEU, CBC, ADIFF, BMP #### [address] [address] Calcium [Mass/Vol] 9.8 mg/dL Normal 8.4-10.2 [facility] ([place]) Comment on above: Performed By: #### G FR, A1C, ANEU, CBC, ADIFF, BMP #### [address] [address] Chloride [Moles/Vol] 106 mmol/L Normal 98-107 [facility] ([place]) Comment on above: Performed By: #### G FR, A1C, ANEU, CBC, ADIFF, BMP #### [address] [address] CO2 [Moles/Vol] 29 mmol/L Normal 23-31 [facility] ([place]) Comment on above: Performed By: #### G FR, A1C, ANEU, CBC, ADIFF, BMP #### [address] [address] Creatinine [Mass/Vol] 1.08 mg/dL High 0.55-1.02 [facility] ([place]) Comment on above: Performed By: #### G FR, A1C, ANEU, CBC, ADIFF, BMP #### [address] [address] Electrolyte Balance 8.0 mEq/L Normal 4.0-15.0 [facility] ([place]) Comment on above: Performed By: #### G FR, A1C, ANEU, CBC, ADIFF, BMP #### [address] [address] Glucose [Mass/Vol] 125 mg/dL High 83-110 [facility] ([place]) Comment on above: Performed By: #### G FR, A1C, ANEU, CBC, ADIFF, BMP #### [address] [address] Potassium [Moles/Vol] 4.5 mmol/L Normal 3.5-5.1 [facility] ([place]) Comment on above: Performed By: #### G FR, A1C, ANEU, CBC, ADIFF, BMP #### [address] [address] Sodium [Moles/Vol] 143 mmol/L Normal 136-145 [facility] ([place]) Comment on above: Performed By: #### G FR, A1C, ANEU, CBC, ADIFF, BMP #### [address] [address] Urea nitrogen [Mass/Vol] 29 mg/dL High 7-18 [facility] ([place]) Comment on above: Performed By: #### G FR, A1C, ANEU, CBC, ADIFF, BMP #### [address] [address] CBCon 09-16-2022 Erythrocyte distribution width (RBC) [Ratio] 14.6 % High 11.5-14.5 [facility] ([place]) Comment on above: Performed By: #### G FR, A1C, ANEU, CBC, ADIFF, BMP #### [address] [address] Hematocrit (Bld) [Volume fraction] 33.9 % Low 37.0-47.0 [facility] ([place]) Comment on above: Performed By: #### G FR, A1C, ANEU, CBC, ADIFF, BMP #### [address] [address] Hgb 11.2 G/dL Low 12.0-16.0 [facility] ([place]) Comment on above: Performed By: #### G FR, A1C, ANEU, CBC, ADIFF, BMP #### [address] [address] MCH (RBC) [Entitic mass] 27.0 pg Normal 27.0-31.2 [facility] ([place]) Comment on above: Performed By: #### G FR, A1C, ANEU, CBC, ADIFF, BMP #### [address] [address] MCHC 33.1 G/dL Normal 33.0-37.0 [facility] ([place]) Comment on above: Performed By: #### G FR, A1C, ANEU, CBC, ADIFF, BMP #### [address] [address] MCV (RBC) [Entitic vol] 81.6 fL Normal 80.0-94.0 [facility] ([place]) Comment on above: Performed By: #### G FR, A1C, ANEU, CBC, ADIFF, BMP #### [address] [address] Platelet 275 10 3/mcL Normal 130-400 [facility] ([place]) Comment on above: Performed By: #### G FR, A1C, ANEU, CBC, ADIFF, BMP #### [address] [address] Platelet mean volume (Bld) [Entitic vol] 8.2 fL Normal 7.4-10.4 [facility] ([place]) Comment on above: Performed By: #### G FR, A1C, ANEU, CBC, ADIFF, BMP #### [address] [address] RBC 4.15 10 6/mcL Low 4.20-5.40 [facility] ([place]) Comment on above: Performed By: #### G FR, A1C, ANEU, CBC, ADIFF, BMP #### [address] [address] WBC 8.5 10 3/mcL Normal 4.6-10.8 [facility] ([place]) Comment on above: Performed By: #### G FR, A1C, ANEU, CBC, ADIFF, BMP #### [address] [address] LABORATORYOrdered By: SYSTEM SYSTEM on 06-19-2022 Basophils [...] CNPNon 06-03-2022 CNPN Telephone (TONYA) CT D[facility]TON ([id number]) 1940 F Date Time Provider Department 06/03/22 PAULA ALANIZ During your visit today, we recorded the following information about you: Brenton Jennings RN 06/03/2022 11:29 AM Signed Received a request from [facility] for all of Ct's left breast cancer treatment medical records. Faxed the request to medical records on [facility] [place], fax confirmation sheet received. Brenton Jennings RN [...] Encounter Status:Closed by BRENTON JENNINGS on 06/03/22 [facility] LABORATORYOrdered By: SYSTEM SYSTEM on [...] ADM SS CNOVon 04-06-2022 CNOV Office Visit (SWS ) CT D[facility]TON ([id number]) 1940 F Date Time Provider Department 04/06/22 [...] needle core breast biopsies on 03/23/2022 at [facility]. Findings of fat necrosis, inflammation and [...] once daily. (more content not included)... [facility] LABORATORYOrdered By: SYSTEM SYSTEM [...] 20.0 - 40.0 % AH Workflow SS Magnesium [Mass/Vol] 1.7 mg/dL Invalid Interpretation Code 1.6 - 2.4 mg/dL AH ADM SS MCH (RBC) [Entitic mass] 28.1 [...] 12-04 Culture Urine No growth to date [facility] Microscopic examination of blood, culture Culture has been received in lab and is no growth to date. Routine cultures are held for 5 days. [facility] LABORATORYOrdered By: Lab KATIE Webber on [...] 1.006-1.029 AM [facility] Subsection Urobilinogen Qn (U) [id number] {Sara'U}/dL Invalid Interpretation Code 0.2-1.0E.U. /dL AM [...] on above: Result Comment: Alesia Ziegler [address] [place], [place] [address] Perf Loc - POCT Tested at AM Invalid Interpretation Code AM [employer] Subsection Comment on above: Result Comment: Alesia Ziegler [address] [place], [place] [address] Perf Loc - POCT Tested at AM Invalid Interpretation Code AM [employer] Subsection Comment on above: Result Comment: Alesia Ziegler [address] [place], [place] [address] MRI BREAST WO/W IVCON BILon 03-01-2018 MRI BREAST WO/W IVCON DUNCAN * * *Final Report* * * DATE OF EXAM: Mar 01 2018 11:54AM 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 Short interval follow up of the lumpectomy site recommended per the prior MRI dated 05/18/2017. RESULT: Comparison is made to exam dated: 05/18/2017 breast MRI - [facility]. Interpretation of this MRI was correlated with [...] Follow-up with ACR/NCCN guidelines. Td carlson/rafael:03/01/2018 14:15:08 Customer Service Receptionist(s): RT Amanda(N)(MR), [facility] MRI BI-RADS: 2 Benign finding Multiple national [...] the [facility] has carefully reviewed the data and reached [...] their providers when to stop screening mammograms. Protective Signal Operations Supervisor: Rafael Transcribe Date/Time: Mar 01 2018 11:37A Dictated by : TD SANDERS MD This examination was interpreted and the report reviewed and electronically signed by: TD SANDERS MD on Mar 01 2018 2:15PM EST [id number] [facility] NURSING PROGon 03-01-2018 Protein mass conc HNO ID: [id number] Author: Carla Love (Rn) Kristopher Service: Radiology [...] Summers RN March 01, 2018 10:49 AM [facility] Clinical Summary: HMSPatient IDon 01-17-2018 OOP Invalid Interpretation Code [facility] Work Phone: Office Visit: Follow-up by sasha servin, Rm: [email or web address] 01-17-2018 NEGATED: Highlighted rowMRI (magnetic resonance imaging) history of the lumbar spine on 10/20/2013 at [place] Invalid Interpretation Code [facility] Work Phone: NEGATED: Highlighted rowProtein mass conc Done Invalid Interpretation Code [facility] Work Phone: MRI BREAST WO/W IVCON BILon 05-18-2017 MRI BREAST WO/W IVCON DUNCAN * * *Final Report* * * DATE OF EXAM: May 18 2017 2:32PM [facility] [id number] - MRI BREAST WO/W IVCON DUNCAN / PROCEDURE REASON: Z13.89-Encounter for screening for other disorder * * * * Physician Interpretation * * * * #[id number] - MRI BREAST WO/W IVCON DUNCAN BREAST [...] staff physician. Cricket Pineda M.D. ns,bb/rafael:05/18/2017 15:28:32 Customer Service Receptionist: Cally SPEARS(Alex)(Jeanine), [facility] MRI BI-RADS: 3 Probably benign finding - short term interval follow-up recommended Protective Signal Operations Supervisor: Rafael Transcribe Date/Time: May 18 2017 2:15P Dictated by : MALLIKA PINEDA MD This examination was interpreted and the report reviewed and electronically signed by: CRICKET AMBRIZ MD on May 18 2017 3:28PM EST [id number] [facility] NURSING PROGon 05-18-2017 Protein mass conc HNO ID: [id number] Author: Ema (Rn) DONA Bai Service: PICC [...] 2017 TIME: 1:27 PM PAGER/CONTACT #: [id number] [facility] Vital Signs Date Time Vital Sign Value Performing Clinician Facility 08-26-2024 12:46-0400 Body height 167.[address] Warner Leos MD Work Phone: [facility] 07-24-2024 03:24-0400 Diastolic blood pressure 69 mm[Hg] Dr. Warner Leos MD Work Phone: [facility] 07-24-2024 03:24-0400 Heart rate 52 /min Dr. Warner Leos MD Work Phone: [facility] 07-24-2024 03:24-0400 SaO2% (BldA) [Mass fraction] 100 % Dr. Warner Leos MD Work Phone: [facility] 07-24-2024 03:24-0400 Systolic blood pressure 164 mm[Hg] Dr. Warner Leos MD Work Phone: [facility] 07-24-2024 01:24-0400 Body height 167.[address] Warner Leos MD Work Phone: [facility] 07-24-2024 01:24-0400 Body mass index (BMI) [Ratio] 28 kg/m2 Dr. Warner Leos MD Work Phone: [facility] 07-24-2024 01:24-0400 Body temperature 98 [degF] Dr. Warner Leos MD Work Phone: [facility] 07-24-2024 01:24-0400 Body weight 78.[address] Warner Leos MD Work Phone: [facility] 07-24-2024 01:24-0400 Respiratory rate 16 /min Dr. Warner Leos MD Work Phone: [facility] 02-10-2024 15:30-0500 Body temperature 97.52 [degF] ELDA DEL ROSARIO LINE DIRECTOR-PRETZEL TWISTING MACHINE OPERATOR [facility] 02-10-2024 15:30-0500 Diastolic Blood Pressure Non-Invasive 72 mm[Hg] ELDA DEL ROSARIO LINE DIRECTOR-PRETZEL TWISTING MACHINE OPERATOR [facility] 02-10-2024 15:30-0500 Heart rate 84 /min ELDA DEL ROSARIO LINE DIRECTOR-PRETZEL TWISTING MACHINE OPERATOR [facility] 02-10-2024 15:30-0500 Reason For Taking VItal Signs ELDA DEL ROSARIO LINE DIRECTOR-PRETZEL TWISTING MACHINE OPERATOR [facility] 02-10-2024 15:30-0500 Respiratory rate 16 /min ELDA DEL ROSARIO LINE DIRECTOR-PRETZEL TWISTING MACHINE OPERATOR [facility] 02-10-2024 15:30-0500 Systolic Blood Pressure Non-Invasive 146 mm[Hg] ELDA DEL ROSARIO LINE DIRECTOR-PRETZEL TWISTING MACHINE OPERATOR [facility] 02-10-2024 06:37-0500 Body temperature 97.34 [degF] ELDA DEL ROSARIO LINE DIRECTOR-PRETZEL TWISTING MACHINE OPERATOR [facility] 02-10-2024 06:37-0500 Diastolic Blood Pressure Non-Invasive 82 mm[Hg] ELDA DEL ROSARIO LINE DIRECTOR-PRETZEL TWISTING MACHINE OPERATOR [facility] 02-10-2024 06:37-0500 Heart rate 80 /min ELDA DEL ROSARIO LINE DIRECTOR-PRETZEL TWISTING MACHINE OPERATOR [facility] 02-10-2024 06:37-0500 Reason For Taking VItal Signs ELDA DEL ROSARIO LINE DIRECTOR-PRETZEL TWISTING MACHINE OPERATOR [facility] 02-10-2024 06:37-0500 Respiratory rate 14 /min ELDA DEL ROSARIO LINE DIRECTOR-PRETZEL TWISTING MACHINE OPERATOR [facility] 02-10-2024 06:37-0500 Systolic Blood Pressure Non-Invasive 148 mm[Hg] ELDA DEL ROSARIO LINE DIRECTOR-PRETZEL TWISTING MACHINE OPERATOR [facility] 02-10-2024 03:22-0500 Body temperature 97.52 [degF] ELDA DEL ROSARIO LINE DIRECTOR-PRETZEL TWISTING MACHINE OPERATOR [facility] 02-10-2024 03:22-0500 Diastolic Blood Pressure Non-Invasive 81 mm[Hg] ELDA DEL ROSARIO LINE DIRECTOR-PRETZEL TWISTING MACHINE OPERATOR [facility] 02-10-2024 03:22-0500 Heart rate 81 /min ELDA DEL ROSARIO LINE DIRECTOR-PRETZEL TWISTING MACHINE OPERATOR [facility] 02-10-2024 03:22-0500 Reason For Taking VItal Signs ELDA DEL ROSARIO LINE DIRECTOR-PRETZEL TWISTING MACHINE OPERATOR [facility] 02-10-2024 03:22-0500 Respiratory rate 14 /min ELDA DEL ROSARIO LINE DIRECTOR-PRETZEL TWISTING MACHINE OPERATOR [facility] 02-10-2024 03:22-0500 Systolic Blood Pressure Non-Invasive 156 mm[Hg] ELDA DEL ROSARIO LINE DIRECTOR-PRETZEL TWISTING MACHINE OPERATOR [facility] 02-09-2024 22:01-0500 Heart rate 74 /min ELDA DEL ROSARIO LINE DIRECTOR-PRETZEL TWISTING MACHINE OPERATOR [facility] 02-09-2024 21:59-0500 Body height 152 cm ELDA DEL ROSARIO LINE DIRECTOR-PRETZEL TWISTING MACHINE OPERATOR [facility] 02-09-2024 21:59-0500 Body weight 67 kg ELDA DEL ROSARIO LINE DIRECTOR-PRETZEL TWISTING MACHINE OPERATOR [facility] 02-09-2024 21:59-0500 Body weight 29 kg/m2 ELDA DEL ROSARIO LINE DIRECTOR-PRETZEL TWISTING MACHINE OPERATOR [facility] 02-09-2024 21:07-0500 Heart rate 78 /min ELDA DEL ROSARIO LINE DIRECTOR-PRETZEL TWISTING MACHINE OPERATOR [facility] 02-09-2024 21:07-0500 Mean blood pressure 90 mm[Hg] ELDA DEL ROSARIO LINE DIRECTOR-PRETZEL TWISTING MACHINE OPERATOR [facility] 02-09-2024 20:38-0500 Mean blood pressure 85 mm[Hg] ELDA DEL ROSARIO LINE DIRECTOR-PRETZEL TWISTING MACHINE OPERATOR [facility] 02-09-2024 19:39-0500 Heart rate 83 /min ELDA DEL ROSARIO LINE DIRECTOR-PRETZEL TWISTING MACHINE OPERATOR [facility] 01-21-2024 10:04-0500 Body height 160 cm INES DENNIS MD [facility] 01-21-2024 10:04-0500 Body temperature 97.52 [degF] INES DENNIS MD [facility] 01-21-2024 10:04-0500 Body weight 68.2 kg INES DENNIS MD [facility] 01-21-2024 10:04-0500 Diastolic Blood Pressure Non-Invasive 81 mm[Hg] INES DENNIS MD [facility] 01-21-2024 10:04-0500 Heart rate 85 /min INES DENNIS MD [facility] 01-21-2024 10:04-0500 Respiratory rate 18 /min INES DENNIS MD [facility] 01-21-2024 10:04-0500 Systolic Blood Pressure Non-Invasive 164 mm[Hg] INES DENNIS MD [facility] 12-09-2023 08:47-0400 Blood Pressure Location INES DENNIS MD [facility] 12-09-2023 08:47-0400 Blood Pressure Method INES DENNIS MD [facility] 12-09-2023 08:47-0400 Body temperature 98.24 [degF] INES DENNIS MD [facility] 12-09-2023 08:47-0400 Diastolic Blood Pressure Non-Invasive 91 mm[Hg] INES DENNIS MD [facility] 12-09-2023 08:47-0400 Heart rate 90 /min INES DENNIS MD [facility] 12-09-2023 08:47-0400 Respiratory rate 18 /min INES DENNIS MD [facility] 12-09-2023 08:47-0400 Systolic Blood Pressure Non-Invasive 161 mm[Hg] INES DENNIS MD [facility] 11-29-2023 12:26-0400 Diastolic Blood Pressure Non-Invasive 76 mm[Hg] SONNY FAVIO DO [facility] 11-29-2023 12:26-0400 Heart rate 76 /min SONNY FAVIO DO [facility] 11-29-2023 12:26-0400 Respiratory rate 18 /min SONNY FAVIO DO [facility] 11-29-2023 12:26-0400 Systolic Blood Pressure Non-Invasive 164 mm[Hg] SONNY FAVIO DO [facility] 11-29-2023 08:58-0400 Blood Pressure Cuff Size SONNY FAVIO DO [facility] 11-29-2023 08:58-0400 Blood Pressure Location SONNY FAVIO DO [facility] 11-29-2023 08:58-0400 Blood Pressure Method SONNY FAVIO DO [facility] 11-29-2023 08:58-0400 Body height 155 cm SONNY STAHL DO [facility] 11-29-2023 08:58-0400 Body temperature 97.34 [degF] SONNY STAHL DO [facility] 11-29-2023 08:58-0400 Diastolic Blood Pressure Non-Invasive 83 mm[Hg] SONNY STAHL DO [facility] 11-29-2023 08:58-0400 Heart rate 84 /min SONNY STAHL DO [facility] 11-29-2023 08:58-0400 Respiratory rate 18 /min SONNY STAHL DO [facility] 11-29-2023 08:58-0400 Systolic Blood Pressure Non-Invasive 172 mm[Hg] SONNY STAHL DO [facility] 06-19-2022 12:01-04[address] Blood Pressure Cuff Size DR ANISA GOMEZ MD [facility] 06-19-2022 12:01-[address] ANISA GOMEZ MD [facility] 06-19-2022 12:01-[address] ANISA GOMEZ MD [facility] 06-19-2022 12:01-0400 Body height [address] ANISA GOMEZ MD [facility] 06-19-2022 12:01-0400 Body temperature 97.7 [degF] DR ANISA GOMEZ MD [facility] 06-19-2022 12:01-0400 Body weight 76.[address] ANISA GOMEZ MD [facility] 06-19-2022 12:01-0400 Body weight 31.88 kg/m2 DR ANISA GOMEZ MD [facility] 06-19-2022 12:01-0400 Diastolic Blood Pressure Non-Invasive [address] ANISA GOMEZ MD [facility] 06-19-2022 12:01-0400 Heart rate 86 /min DR ANISA GOMEZ MD [facility] 06-19-2022 12:01-0400 Systolic Blood Pressure Non-Invasive [address] ANISA GOMEZ MD [facility] 04-06-2022 09:47-0500 Body height 157.5 cm Paula Alaniz MD Work Phone: [facility] 04-06-2022 09:47-0500 Body temperature 97.81 [degF] Paula Alaniz MD Work Phone: [facility] 04-06-2022 09:47-0500 Body weight 73.94 kg Paula Alaniz MD Work Phone: [facility] 04-06-2022 09:47-0500 Diastolic blood pressure 70 mm[Hg] Paula Alaniz MD Work Phone: [facility] 04-06-2022 09:47-0500 Heart rate 109 /min Paula Alaniz MD Work Phone: [facility] 04-06-2022 09:47-0500 SaO2% (BldA) [Mass fraction] 99 % Paula Alaniz MD Work Phone: [facility] 04-06-2022 09:47-0500 Systolic blood pressure 148 mm[Hg] Paula Alaniz MD Work Phone: [facility] 12-25-2021 16:18-0500 Diastolic Blood Pressure Non-Invasive 69 1 INES DENNIS MD [facility] 12-25-2021 16:18-0500 Systolic Blood Pressure Non-Invasive 189 1 INES DENNIS MD [facility] 12-25-2021 15:56-0500 Body height 157.5 cm INES DENNIS MD [facility] 12-25-2021 15:56-0500 Body temperature 96.44 [degF] INES DENNIS MD [facility] 12-25-2021 15:56-0500 Body weight 65.9 kg INES DENNIS MD [facility] 12-25-2021 15:56-0500 Diastolic Blood Pressure Non-Invasive 109 1 INES DENNIS MD [facility] 12-25-2021 15:56-0500 Heart rate 90 /min INES DENNIS MD [facility] 12-25-2021 15:56-0500 Respiratory rate 20 /min INES DENNIS MD [facility] 12-25-2021 15:56-0500 Systolic Blood Pressure Non-Invasive 202 1 INES DENNIS MD [facility] 12-06-2021 12:58-0400 Diastolic blood pressure 77 mm[Hg] DR KEVIN VIRGEN MD [facility] 12-06-2021 12:58-0400 Mean blood pressure 111 mm[Hg] DR KEVIN VIRGEN MD [facility] 12-06-2021 12:58-0400 Systolic blood pressure 180 mm[Hg] DR KEVIN VIRGEN MD [facility] 12-06-2021 12:55-0400 Diastolic blood pressure 77 mm[Hg] DR KEVIN VIRGEN MD [facility] 12-06-2021 12:55-0400 Heart rate 60 /min DR KEVIN VIRGEN MD [address] [place] [address] 12-06-2021 12:55-0400 Mean blood pressure 111 mm[Hg] DR KEVIN VIRGEN MD [address] [place] [address] 12-06-2021 12:55-0400 Reason For Taking VItal Signs DR KEVIN VIRGEN MD [address] [place] [address] 12-06-2021 12:55-0400 Respiratory rate 18 /min DR KEVIN VIRGEN MD [address] 12-06-2021 12:55-0400 Systolic blood pressure 180 mm[Hg] DR KEVIN VIRGEN MD [address] [place] [address] 12-06-2021 08:46-0400 Heart rate 78 /min DR KEVIN VIRGEN MD [address] 12-06-2021 08:30-0400 Body temperature 98.06 [degF] DR KEVIN VIRGEN MD [address] 12-06-2021 08:30-0400 Diastolic blood pressure 82 mm[Hg] DR KEVIN VIRGEN MD [address] 12-06-2021 08:30-0400 Heart rate 77 /min DR KEVIN VIRGEN MD [address] [place] [address] 12-06-2021 08:30-0400 Mean blood pressure 106 mm[Hg] DR KEVIN VIRGEN MD [address] [place] [address] 12-06-2021 08:30-0400 Reason For Taking VItal Signs DR KEVIN VIRGEN MD [address] [place] [address] 12-06-2021 08:30-0400 Respiratory rate 17 /min DR KEVIN VIRGEN MD [address] [place] [address] 12-06-2021 08:30-0400 Systolic blood pressure 155 mm[Hg] DR KEVIN VIRGEN MD [address] [place] [address] 12-06-2021 03:45-0400 Body temperature 97.88 [degF] DR KEVIN VIRGEN MD [address] [place] [address] 12-06-2021 03:45-0400 Reason For Taking VItal Signs DR KEVIN VIRGEN MD [address] [place] [address] 12-06-2021 03:45-0400 Respiratory rate 18 /min DR KEVIN VIRGEN MD [address] [place] [address] 12-05-2021 23:53-0400 Body temperature 98.06 [degF] DR KEVIN VIRGEN MD [address] [place] [address] 12-04-2021 15:33-0400 Heart rate 56 /min DR KEVIN VIRGEN MD [address] [place] [address] 12-04-2021 02:47-0400 Heart rate 55 /min DR KEVIN VIRGEN MD [address] [place] [address] 12-03-2021 23:44-0400 Heart rate 60 /min DR KEVIN VIRGEN MD [address] [place] [address] 12-03-2021 21:46-0400 Body height [address] KEVIN VIRGEN MD [address] [place] [address] 12-03-2021 21:46-0400 Body weight 83.[address] KEVIN VIRGEN MD [address] [place] [address] 12-03-2021 21:46-0400 Body weight 32.73 kg/m2 DR KEVIN VIRGEN MD [address] [place] [address] 12-03-2021 21:30-0400 Heart rate 86 /min DR KEVIN VIRGEN MD [address] [place] [address] 12-03-2021 14:26-0400 Body temperature 98.06 [degF] DR KEVIN VIRGEN MD [facility] 12-03-2021 14:26-0400 Body weight 83.[address] KEVIN VIRGEN MD [facility] NEGATED: Highlighted [id number] 10:24-0500 BMI (Body Mass Index) 37.26 kg/m2 Rigo Sitko AT [facility] Work Phone: NEGATED: Highlighted [id number] 10:24-0500 BP Diastolic 72 mm[Hg] Rigo Sitko AT [facility] Work Phone: NEGATED: Highlighted [id number] 10:24-0500 BP Diastolic 82 mm[Hg] Rigo Sitko AT [facility] Work Phone: NEGATED: Highlighted [id number] 10:24-0500 BP Systolic 154 mm[Hg] Rigo Sitko AT [facility] Work Phone: NEGATED: Highlighted [id number] 10:24-0500 BP Systolic 149 mm[Hg] Rigo Sitko AT [facility] Work Phone: NEGATED: Highlighted [id number] 10:24-0500 Height 157.48 cm Rigo Sitko AT [facility] Work Phone: NEGATED: Highlighted [id number] 10:24-0500 Height 157 cm Rigo Sitko AT [facility] Work Phone: NEGATED: Highlighted [id number] 10:24-0500 Pulse (Heart Rate) 60 /min Rigo Sitko AT [facility] Work Phone: NEGATED: Highlighted [id number] 10:24-0500 Weight 92.08 kg Rigo Sitko AT [facility] Work Phone: NEGATED: Highlighted [id number] 10:24-0500 Weight 92 kg Rigo Sitko AT [facility] [place] [facility] Work Phone: Encounters Encounter Date Encounter Type Care Provider Facility Start: 12-11-2024 ambulatory Jairon Medel Facili ty:[facility] Start: 11-27-2024 End: 11-27-2024 ambulatory Efsreekanthongmakenzie De Leone OLS Facility:[facility] Start: 11-13-2024 End: 11-13-2024 ambulatory Efmargarette De Leone OLS Facility:[facility] Start: 11-01-2024 End: 11-01-2024 ambulatory Efsreekanthongmakenzie De Leone Facility:[facility] Start: 10-16-2024 Registered Referred Jairon Ruvalcaba Start: 10-16-2024 End: 10-16-2024 ambulatory Efmargarette De Leone Facility:[facility] Start: 10-10-2024 End: 10-10-2024 ambulatory Efmargarette De Leone Facility:[facility] Start: 09-18-2024 ambulatory Efmargarette De Leone OLS Fa cility:[facility] Start: 09-18-2024 Registered Referred Jairon Ruvalcaba Start: 08-28-2024 End: 08-28-[address] Jairon Medel MD Work Phone: -[facility] Start: 08-28-2024 End: 08-28-2024 Departed Referred Jairon Ruvalcaba Start: 08-28-2024 Registered Referred Jairon Ruvalcaba Start: 08-28-2024 End: 08-28-2024 ambulatory Efsreekanthbraden Haleye OLS Facility:[facility] Start: 08-21-2024 ambulatory Efmeghanmakenzie Haleysophia OLS Fa cility:[facility] Start: 08-21-2024 Registered Referred Jairon Ruvalcaba Start: 08-08-2024 End: 08-08-[address] Warner Leos MD Work Phone: [facility] Start: 08-08-2024 End: 08-08-[address] Jairon Medel MD -[facility] Work Phone: Start: 08-08-2024 Non-patient / Non-visit Dr. Julia young MD -[facility] Work Phone: Start: 07-24-2024 End: 07-24-[address] Warner Leos MD Work Phone: -[facility] Start: 07-24-2024 End: 07-24-2024 Patient encounter procedure Jane Barth EXECUTIVE COACH-C -[facility] Work Phone: Start: 07-24-2024 End: 07-24-2024 Emergency department patient visit Dr. Warner Leos MD Work Phone: -Emergency Department Work Phone: Start: 06-27-2024 End: 06-27-[address] Warner Leos MD Work Phone: [facility] Start: 06-27-2024 End: 06-27-[address] Jairon Medel MD -[facility] Work Phone: Start: 06-26-2024 End: 06-26-[address] Warner Leos MD Work Phone: [facility] Work Phone: Start: 06-26-2024 End: 06-26-2024 Departed Referred Jairon Ruvalcaba Start: 06-26-2024 End: 06-26-2024 ambulatory Jairon TREVIÑO Facility:[facility] Start: 05-29-2024 End: 05-29-[address] Warner Leos MD Work Phone: [facility] Work Phone: Start: 05-29-2024 End: 05-29-2024 Departed Referred Jairon Ruvalcaba Start: 05-29-2024 Registered Referred Jairon LockhartKate Lockhart [place] Start: 05-29-2024 End: 05-29-2024 ambulatory Efmargarette Medel OLS Facility:[facility] Start: 05-24-2024 End: 05-24-[address] Warner Leos MD Work Phone: [facility] Work Phone: Start: 05-24-2024 End: 05-24-2024 [facility] Start: 05-24-2024 [facility] Start: 05-23-2024 End: 05-24-[address] Warner Leos MD Work Phone: [facility] Work Phone: Start: 05-23-2024 End: 05-23-2024 Patient encounter procedure Jane Barth [facility] Work Phone: Start: 05-15-2024 End: 05-15-[address] Warner Leos MD Work Phone: [facility] Work Phone: Start: 05-15-2024 End: 05-15-2024 [facility] Start: 05-15-2024 [facility] Start: 05-15-2024 End: 05-15-2024 ambulatory Jairon De Leonsophia KAMILA Facility:[facility] Start: 05-12-2024 End: 05-12-[address] Warner Leos MD Work Phone: [facility] Work Phone: Start: 05-12-2024 End: 05-12-2024 Patient encounter procedure Jane Barth [facility] Work Phone: Start: 05-01-2024 End: 05-01-[address] Warner Leos MD Work Phone: [facility] Work Phone: Start: 05-01-2024 End: 05-01-2024 Departed Referred Jairon Ruvalcaba Start: 05-01-2024 End: 05-01-2024 ambulatory Warner Leos Jr. Facility:[facility] Start: 04-26-2024 End: 04-26-2024 ambulatory Jane Lary EXECUTIVE COACH Facility:[facility] Start: 04-26-2024 End: 04-26-2024 Patient encounter procedure Jane Sanchezmartha EXECUTIVE COACH- -[facility] Work Phone: Start: 04-11-2024 End: 04-11-2024 ambulatory Jairon Gianfranco Facility:[facility] Start: 04-11-2024 End: 04-11-[address] Jairon Medel MD -[facility] Work Phone: Start: 04-03-2024 End: 04-03-2024 Patient encounter procedure Jane Barth EXECUTIVE COACH- -[facility] Work Phone: Start: 04-03-2024 End: 04-03-2024 ambulatory Jane Lary EXECUTIVE COACH Facility:[facility] Start: 04-03-2024 Registered Referred Jairon Ruvalcaba Start: 03-27-2024 ambulatory Jairon TREVIÑO Fa cility:[facility] Start: 03-27-2024 Registered Referred Jairon Ruvalcaba Start: 02-29-2024 End: 02-29-2024 ambulatory Efmargarette Medel Facility:[facility] Start: 02-29-2024 End: 02-29-[address] [facility] Start: 02-28-2024 End: 02-28-2024 Departed Referred Jairon Ruvalcaba Start: 02-28-2024 End: 02-28-2024 ambulatory Jairon TREVIÑO Facility:[facility] Start: 02-24-2024 End: 02-24-2024 ambulatory Jane Barth NP Facility:[facility] Start: 02-24-2024 End: 02-24-2024 Patient encounter procedure Jane Barth EXECUTIVE COACH-C -[facility] Work Phone: Start: 02-11-2024 End: 02-23-[address] LARRY THOMAS DO Facility:[facility] Start: 02-09-2024 End: 02-10-2024 Emergency department patient visit ELDA CARIN LINE DIRECTOR-PRETZEL TWISTING MACHINE OPERATOR Facility:[facility] Start: 02-09-2024 End: 02-10-2024 Observation ELDA OBREGONRUFF LINE DIRECTOR-PRETZEL TWISTING MACHINE OPERATOR [facility] Start: 01-21-2024 End: 01-21-2024 Emergency department patient visit INES DENNIS MD [facility] Start: 01-05-2024 End: 01-05-[address] LARRY THOMAS DO [facility] Start: 01-05-2024 End: 01-05-[address] LARRY THOMAS DO [facility] Start: 12-29-2023 End: 12-29-[address] LARRY THOMAS DO [facility] Start: 12-29-2023 End: 12-29-[address] LARRY THOMAS DO [facility] Start: 12-21-2023 End: 12-21-[address] LARRY THOMAS DO [facility] Start: 12-21-2023 End: 12-21-[address] LARRY THOMAS DO [facility] Start: 12-18-2023 End: 01-26-[address] LARRY THOMAS DO Facility:[facility] Start: 12-15-2023 End: 12-15-[address] LARRY THOMAS DO [facility] Start: 12-15-2023 End: 12-15-[address] LARRY THOMAS DO [facility] Start: 12-15-2023 End: 12-19-[address] LARRY THOMAS DO [facility] Start: 12-15-2023 End: 12-19-[address] LARRY THOMAS DO [facility] Start: 12-09-2023 End: 12-09-2023 Emergency department patient visit INES DENNIS MD [facility] Start: 11-29-2023 End: 11-29-2023 Emergency department patient visit SONNY FAVIO DO [facility] Start: 07-08-2023 End: 07-09-[address] LARRY THOMAS DO Facility:[facility] Start: 07-08-2023 End: 07-08-[address] LARRY THOMAS DO [facility] Start: 04-14-2023 End: 04-15-2023 ambulatory MAHAD LORENZO MD Facility:[facility] Start: 04-14-2023 End: 04-14-2023 Patient encounter procedure MAHAD LORENZO MD [facility] Start: 04-09-2023 End: 05-06-[address] LARRY THOMAS DO Facility:[facility] Start: 04-09-2023 End: 02-14-[address] LARRY THOMAS DO Facility:[facility] Start: 04-07-2023 End: 04-08-[address] LARRY THOMAS DO Facility:[facility] Start: 04-07-2023 End: 04-07-2023 Patient encounter procedure MAHAD LORENZO MD [facility] Start: 03-10-2023 End: 03-11-[address] LARRY THOMAS DO Facility:[facility] Start: 12-14-2022 End: 12-15-[address] LARRY THOMAS DO Facility:[facility] Start: 2022 End: 11-09-[address] LARRY THOMAS DO Facility:[facility] Start: 2022 End: 11-09-2022 Coordination of care plan DR LARRY THOMAS DO [facility] Start: 09-16-2022 End: 09-17-[address] LARRY THOMAS DO Facility:[facility] Start: 07-16-2022 End: 07-17-[address] ANISA GOMEZ MD Facility:[facility] Start: 06-19-2022 End: 06-19-[address] ANISA GOMEZ MD [facility] Start: 06-03-2022 Telephone encounter Paula Yepez MD Work Phone: General Surgery Comment on above: Request for medical records Start: 04-15-2022 End: 04-15-[address] LARRY THOMAS DO [facility] Start: 04-14-2022 End: 04-14-[address] LARRY THOMAS DO [facility] Start: 04-06-2022 End: 04-07-2022 ambulatory PAULA ALANIZ Facility:[facility] Start: 04-06-2022 End: 04-06-2022 Patient encounter procedure Paula Alaniz MD Work Phone: General Surgery Comment on above: Abnormal ultrasound of breast; History of left breast cancer Start: 03-23-2022 End: 03-23-2022 Patient encounter procedure ALANNA WRIGHT DO [facility] Start: 03-09-2022 End: 03-09-[address] LARRY THOMAS DO [facility] Start: 02-23-2022 End: 02-23-2022 Patient encounter procedure ALANNA WRIGHT DO [facility] Start: 01-22-2022 End: 01-22-2022 Patient encounter procedure ALANNA WRIGHT DO [facility] Start: 12-25-2021 End: 12-25-2021 Emergency department patient visit INES DENNIS MD [facility] Start: 12-03-2021 End: 12-06-[address] KEVIN VIRGNE MD [facility] Start: 05-05-2021 End: 05-05-2021 Patient encounter procedure ALANNA WRIGHT DO [facility] Start: 12-11-2020 End: 12-11-2020 Patient encounter procedure SEAN POOLE MD [facility] Start: 03-01-2018 Patient encounter procedure PAULA ROA [facility] Start: 01-17-2018 End: 01-17-2018 Patient encounter procedure Carla Dye MD Work Phone: [facility] Work Phone: Start: 05-18-2017 Patient encounter procedure PAULA ROA [facility] Procedures Date Procedure Procedure Detail [...] structure, excl uding neck (body structure) SEAN POOEL MD Bone structure of ph alanx of thumb (body structure) DR ANISA GOMEZ MD Comment on above: left Hand structure (body structure) SEAN POOLE MD History of lumbar laminectomy DR ANISA GOMEZ MD Ligation of fallopian tube A ONEIL POOLE MD Lumpectomy of left breast DR KEVIN VIRGEN MD Plan of Treatment Date Care Activity Detail Author Start: 07-24-2024 [facility] Start: 02-08-2022 ADVANCE DIRECTIVE DISCUSSION ADVANCE DIRECTIVE DISCUSSION [facility] Start: 02-08-2022 DEPRESSION ASSESSMENT DEPRESSION ASSESSMENT [facility] Start: 08-10-2021 COVID-19 VACCINE (5 - Booster for Moderna series) COVID-19 VACCINE (5 - Booster for Moderna series) [facility] Start: 01-17-2018 End: 01-17-2018 Appointment Appointment [facility] Work Phone: Start: 09-23-2003 BONE DENSITY BONE DENSITY [facility] Start: 09-23-2003 PNEUMOCOCCAL: 65+ (1 - PCV) PNEUMOCOCCAL: 65+ (1 - PCV) [facility] Start: 1988 SHINGRIX VACCINE (1 of 2) SHINGRIX VACCINE (1 of 2) [facility] Start: 09-23-1983 DIABETES SCREEN DIABETES SCREEN [facility] Start: 1957 Urine microalbumin profile DTAP,TDAP,TD (1 - Tdap) [facility] Patient Education [facility] Work Phone: Patient referral [facility] Work Phone: Immunizations Immunization Date Immunization Notes Care Provider Mariya rubio 12-27-2022 SARS-CoV-2 (COVID-19 ) [id number] MAHAD LORENZO MD [facility] 11-05-2022 zoster vaccine recombinant MAHAD LORENZO MD [facility] 10-03-2022 influenza virus vacc ine, unspecified formulation MAHAD LORENZO MD [facility] 09-15-2022 pneumococcal 20-lisa nt conjugate vaccine MAHAD LORENZO MD [facility] 01-10-2022 influenza virus vacc ine, unspecified formulation MAHAD LORENZO MD [facility] 06-15-2021 SARS-CoV-2 (COVID-19 ) mRNA-[id number] vaccine MAHAD LORENZO MD [facility] 12-12-2020 SARS-CoV-2 (COVID-19 ) mRNA-[id number] vaccine MAHAD LORENZO MD [facility] Comment on above: Result Comment: 2022: [id number] 10-22-2020 influenza virus vacc ine, unspecified formulation MAHAD LORENZO MD [facility] 03-28-2020 COVID-19, mRNA, LNP- S, PF, 100 mcg/ 0.5 mL dose; Translations: [Moderna COVID-19 Vaccine] SEAN POOLE MD [facility] 02-29-2020 COVID-19, mRNA, LNP- S, PF, 100 mcg/ 0.5 mL dose; Translations: [Moderna COVID-19 Vaccine] SEAN POOLE MD [facility] 10-12-2019 influenza virus vacc ine, unspecified formulation SEAN POOLE MD [facility] Comment on above: Result Comment: phar liv administered 10-11-2019 influenza virus vacc ine, unspecified formulation MAHAD LORENZO MD [facility] 10-11-2019 pneumococcal conjuga te vaccine, 13 valabhijit POOLE MD [facility] 10-07-2018 influenza virus vacc ine, unspecified formulation SEAN POOLE MD [facility] 12-21-2017 influenza virus vacc ine, unspecified formulation SEAN POOLE MD [facility] 10-27-2016 influenza virus vacc ine, unspecified formulation SEAN POOLE MD [facility] 10-29-2015 influenza virus vacc ine, unspecified formulation SEAN POOLE MD [facility] 10-30-2014 influenza virus vacc ine, unspecified formulation SEAN POOLE MD [facility] 10-31-2013 influenza virus vacc ine, unspecified formulation SEAN POOLE MD [facility] 11-01-2012 influenza virus vacc ine, unspecified formulation SEAN POOLE MD [facility] 01-09-2005 pneumococcal polysaccharide vaccine, 23 valent SEAN POOLE MD [facility] No information available. Rigo Best AT [facility] Work Phone: Payers Date Payer Category Payer Self-pay [id number] 2017 Private Health Insurance [id number] 2017 Unknown [id number] 2003 Medicare [id number]. [id number] [id number] 2003 Medicare [id number] 1940 Unknown [id number] 2.16.840.1.392569.3.579.2. 1938 Unknown [id number] 2.16.840.1.240459.3.579.2. 1938 Unknown [id number] 2.16.840.1.532495.3.579.2. 1940 Unknown [id number] 2.16.840.1.060116.3.579.2. 1938 Unknown [id number] 2.16.840.1.747897.3.579.2. 1938 Unknown [id number] 2.16.840.1.245125.3.579.2. 1938 Unknown [id number] 2.16.840.1.092257.3.579.2. 1938 Unknown [id number] 2.16.840.1.605365.3.579.2. 1938 Unknown [id number] 2.16.840.1.276499.3.579.2. 1938 Unknown [id number] 2.16.840.1.577319.3.579.2. 1938 Unknown [id number] 2.16.840.1.814868.3.579.2.627 1938 Unknown [id number] 2.16.840.1.988908.3.579.2.627 1938 Unknown [id number] 2.16.840.1.290413.3.579.2.62 1938 Unknown [id number] 2..840.1.410162.3.579.2.62 1938 Unknown [id number] 2..840.1.124889.3.579.2.62 1938 Unknown [id number] 2.840.1.939341.3.579.2.62 1938 Unknown [id number] 2.840.1.536668.3.579.2.627 Medicare MEDICARE PART A B [id number] Unknown [id number] 2.16.840.1.260204.3.579.2.462 Unknown [id number] 2.16840.1.987543.3.579.2.462 Unknown [id number] 2.16.840.1.237702.3.579.2.462 Unknown [id number] 2.16840.1.161619.3.579.2.462 Unknown [id number] 2.16840.1.400264.3.579.2.462 Unknown [id number] 2.16.840.1.675478.3.579.2.462 Unknown [id number] 2.16.840.1.852113.3.579.2.462 Unknown [id number] 2.16.840.1.800529.3.579.2.462 Unknown [id number] 2.16.840.1.333135.3.579.2.462 Unknown [id number] 2.16.840.1.769458.3.579.2.462 Unknown [id number] 2.16.840.1.040653.3.579.2.462 Unknown [id number] 2.16.840.1.601049.3.579.2.462 Unknown [id number] 2.16.840.1.020678.3.579.2.462 Unknown [id number] 2.16.840.1.341254.3.579.2.462 Unknown [id number] 2.16.840.1.027216.3.579.2.462 Unknown [id number] 2.16.840.1.748781.3.579.2.462 Unknown [id number] 2..840.1.758624.3.579.2.462 Unknown [id number] 2.840.1.590313.3.579.2.462 Unknown [id number] 2.840.1.262203.3.579.2.462 Unknown [id number] 2.840.1.028269.3.579.2.462 Unknown [id number] 2.16.840.1.337277.3.579.2.462 Unknown [id number] 2.16840.1.069017.3.579.2.462 Unknown [id number] 2.16840.1.328826.3.579.2.462 Unknown [id number] 2.16.840.1.653344.3.579.2.462 Unknown [id number] 2.16.840.1.405146.3.579.2.462 Unknown [id number] 2.16.840.1.975586.3.579.2.462 Unknown [id number] 2.16.840.1.961125.3.579.2.462 Unknown [id number] 2.16840.1.226413.3.579.2.462 Social History Date Type Detail Facility Start: 01-17-2018 End: 01-17-2018 Assertion Unknown if ever smoked [facility] Work Phone: Start: 04-07-2019 End: 08-26-2024 Never smoked tobacco (finding) [facility] Sex Assigned At [facility] Start: 04-06-2022 Tobacco use and exposure Smokeless tobacco non-user [facility] Start: 04-06-2022 Alcohol intake Current non-dr commutator presser of alcohol (finding) [facility] Start: 1940 Sex Assigned At Not on file [facility] Start: 05-25-2013 End: 05-31-2024 Sex Female (finding) [facility] Start: 1940 Sex Assigned At Female [facility] Sex Female [facility] Medical Equipment Procedure Code Equipment Code [...] hecks q2hrs Performed Other: 7AM - 4PM [facility] 02-10-2024 Functional Status Financial gaston gement, Home management, Laundry, Meal preparation, Personal ADL, Shopping [facility] 02-10-2024 Functional Status Sup [facility] 02-10-2024 Functional Status Identified as high risk, Door open, Non-Slip footwear, Room check performed [facility] 02-10-2024 Functional Status [facility] 02-10-2024 Functional Status [facility] 02-10-2024 Functional Status [facility] 02-09-2024 Functional Status Cecil [facility] 01-21-2024 Functional Status Minimum assistance [facility] 01-21-2024 Functional Status Independent Cecil [facility] 12-09-2023 Functional Status Minimum assistance [facility] 12-09-2023 Functional Status ID band on, Call device within reach, Bed in low position, Wheels locked, Upper/Half-Length side-rails up, Visitor at bedside, Safety level maintained [facility] 11-29-2023 Functional Status Up ad nazario [facility] 11-29-2023 Functional Status Standard Safet y ID band on, Call device within reach, Bed in low position, Wheels locked, Upper/Half-Length side-rails up, Visitor at bedside [facility] 06-19-2022 Functional Status Sensory Deficits None [facility] 12-25-2021 Functional Status Independent Cecil [facility] 12-06-2021 Functional Status None [facility] 12-06-2021 Functional Status Room check performed [facility] 12-06-2021 Functional Status [facility] 12-06-2021 Functional Status [facility] 12-05-2021 Functional Status [facility] 12-05-2021 Functional Status [facility] 12-05-2021 Functional Status Mod A 1 [facility] 12-04-2021 Functional Status Single level home [facility] 12-04-2021 Functional Status [facility] 12-04-2021 Functional Status [facility] 12-04-2021 Functional Status [facility] 12-04-2021 Functional Status [facility] 12-04-2021 Functional Status SCD On/Re-appl ied bilateral knee high [facility] 12-03-2021 Functional Status Ambulation in Room [facility] Mental Status Date Assessment Result Facility 02-10-2024 Mental Status Not oriented to time, Forgetful, Follows simple commands [facility] 02-09-2024 Mental Status [facility] 02-09-2024 Mental Status [facility] 01-21-2024 Mental Status Orientation Not oriented to situation, Forgetful [facility] 01-21-2024 Mental Status [facility] 12-09-2023 Mental Status Orientation Oriented x 4 [facility] 12-09-2023 Mental Status [facility] 11-29-2023 Mental Status Orientation Oriented x 4 [facility] 11-29-2023 Mental Status [facility] 12-25-2021 Mental Status Orientation Oriented x 4 [facility] 12-06-2021 Mental Status Oriented x 4, [facility] 12-06-2021 Mental Status [facility] 12-06-2021 Mental Status [facility] Clinical Notes 12-03-2021 to 07-24-2024 Note Date & Type Note Facility 07-24-2024 Discharge summary [facility] 07-24-2024 Radiology Diagnostic study note [facility] Imaging Services [address], [place] [id number] HIP, UNI W/ Pelvis 2-3 Views MR#: [id number] Acct: [id number] Name: CT DALTON Rep #: [id number] : 1940 F 83 From: Jane Vance MD PCP: Dr. Jairon Medel MD Status: R EG ER Study:HIP, UNI W/ Pelvis 2-3 Views Date of Ex am: 07/24/24 Exam# [id number] Ordering Dr: Sharon Harry MD PROCEDURE: HIP, [...] Right hip moderate degenerative changes. Reading Location: [place] [address] CC: Dr. Jairon Medel MD; Dr. 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 Follow Up Care 02/09/2024 19:37:05 With:LARRY THOMAS DO Address: [address] [place] [address] [phone] When:02/16/2024 09:30:00 Comments:This is your post-hospital appointment. Follow-up as scheduled. [facility] 02-10-2024 Note Discharge Instructions Thank you for allowing [facility] to assist you with your healthcare needs. The following is important discharge information regarding your hospital visit. Your Care Team SUSY ALBRIGHT APRN-SHAMEKA Your Diagnosis (HFpEF) heart failure with preserved ejection fraction Dementia Weakness What to do next Scheduled Follow-Up Appointments Appointment Type When With Where Contact Information StatusPC OV 02/16/2024 09:30 AM EST LARRY THOMAS DO [address] [id number] Confirmed Follow Up Appointments Follow Up with LARRY THOMAS DO When:02/16/2024 09:30 AM EST Where:[address] [place] [address] [phone] Additional Information: This is your post-hospital appointment. [...] providers or retail pharmacies. Medication Leaflets memantine ([facility] MAN teen) Namenda, Namenda XR [...] may report side effects to FDA at 5-210-SWX-8148. What other drugs will affect memantine? Tell [...] may interact with memantine, including prescription and lovv-ogf-tnnlfvh medicines, vitamins, and herbal products. Not all [...] to ensure that the information provided by [employer]. ('[employer]') is accurate, up-to-date, and complete, but no guarantee is made to that effect. Drug information contained herein may be time sensitive. [employer] information has been compiled for use by healthcare practitioners and consumers in the [place] and therefore [employer] does not warrant that uses outside of the [place] are appropriate, unless specifically indicated otherwise. [employer]'s drug information does not endorse drugs, diagnose patients or recommend therapy. [employer] drug information is an informational resource designed [...] effective or appropriate for any given patient. [employer] does not assume any responsibility for any aspect of healthcare administered with the aid of information [employer] provides. The information contained herein is not intended to cover all possible uses, directions, precautions, warnings, drug interactions, allergic reactions, or adverse effects. If you have questions about the drugs you are taking, check with your doctor, nurse or pharmacist. Copyright 7351-3711 [employer]. Version: 5.01. Revision Date: 09/21/2022. Education Materials [...] Follow these instructions at home: Medicines Take qkss-tjx-iriycig and prescription medicines only as told by [...] Document Reviewed: 04/11/2019 Elsevier Patient Education 2020 Elsevier Inc. Additional Information VACCINATE! IT SAVES LIVES! Members of the community who have not yet received the COVID-19 vaccine and would like to receive it can visit one of [facility] vaccine clinics. There are many vaccine clinic locations within the [facility]. For locations and available times, please visit https://gettheshot.coronavirus.[place].gov/. It is important to note that some COVID mobile vaccine clinics are held outdoors and may be canceled in rainy or stormy conditions. To learn more about pediatric vaccinations (ages 5-11), we invite you to visit the [facility] webpage. https://www.[email or web address].org/pag es/0528-Qsowy-Ddshwvfflxv-Frequent vw-Signb-Mzbuwiwdo.html To learn more about the COVID-19 vaccine, we invite you to visit the CDC website for a list of frequently asked questions.https://www.cdc.gov/armando navirus/2019-ncov/vaccines/faq.htm l [employer] Patient Portal Access Instructions: Stay connected with your healthcare team and access your personal medical information anytime with the [employer] Patient Portal. Please follow the directions below to create your [employer] account: 1.Access the email account you provided upon registration to the hospital/physician office.2.Look for an invitation email from [facility].3.Open the email and access the invitation link: Accept Invitation to [facility].4.Fill in the required alejandro to create your account. To access your account, visit [email or web address]. Click the blue button labeled "Access Patient [...] you will allow to register on the [facility] Patient Portal for access to your information. You can also access the [facility] Patient Portal on the [employer] angelica. Simply click on "Patient Portal" and then log into your account. If you would like to receive a full copy of your medical records, please contact the [facility] Medical Records Department by calling [phone], Wednesday through Wednesday between 8 a.m. and [...] Call your local pharmacy or go to [email or web address] [email or web address]/6C6Mn9m to find one close to you.3.Make use of household items: Use cat litter or old coffee grounds to dispose medications if other options are not available. Mix your drugs with these household products, seal them in an airtight container and throw it into the garbage. Call [facility]: [phone] to be sure your drugs can be [...] CHART COPY. Signatures Patient Education Materials Dementia, Pave-ug-Goyj Medication Leaflets memantine My discharge plan and instructions have been reviewed and explained to me and ISHA CAROLE A understand my current condition and have read and understand these discharge instructions. I have received a written copy of the plan/instructions. If I have questions, I am aware that I should contact my doctor. 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 Weakness 2. (HFpEF) heart [...] Date:02/16/2024 09:30:00 AM Scheduled Provider:LARRY THOMAS DO Location:[facility] Appointment Type:[facility] 01-02-2025 Note Date of Service 02/10/24 [...] HLD, HFpEF. Patient presented to [facility] ED on 02/09/24 due to family [...] by SUSY ALBRIGHT on 02/10/2024 10:21 AM [facility]01-01-2025 Note* Exam Date Time Procedure Performing Provider Status 02/09/24 8:10 PM XR Chest 1 View EILEEN CHRISTINE DO; Arnaldo h (Verified) [id number] ORIGINAL EXAMINATION: ONE XRAY VIEW OF THE [...] PM Ordering Provider: TRIXIE BARONE [facility]01-01-2025 Note* Exam Date Time Procedure Performing Provider Status 02/09/24 7:59 PM EKG [ED AOH] - CV MD TRIXIE BARONE MD; Auth (Verified) ECG Final Report Sinus rhythm LVH by voltage Inferior infarct, old Anterior Q waves, possibly due to LVH Electronic Signature: MD TRIXIE BARONE MD 02/09/2024 20:03:00 [facility]12-13-2024 Hospital Discharge instructions Patient Education [...] mid-urethra. Front view of female urinary tract. 9372-0601 [employer]. [address] [place] [address]. All rights reserved. This information is not intended as a substitute for professional medical care. Always follow yourhealthcare professional's instructions. Follow Up Care 01/21/2024 09:33:55 With:LARRY THOMAS DO Address: [address] [facility] [place] [address] [phone] When:2-4 days [facility] 12-13-2024 Note Discharge Instructions Thank you for allowing [facility] to assist you with your healthcare needs. The following is importantdischarge information regarding your hospital visit. Diagnosis from Today's Visit Bladder pain What to Do Next Instructions from Your Care Team No qualifying data available. Post Acute Orders No qualifying data available. You Need to Schedule the Following Appointments Follow Up with LARRY THOMAS DO When:Within 2-4 days Where:[address] [facility] [place] [address] [phone] Allergies NKA Medications Please ask your primary [...] mid-urethra. Front view of female urinary tract. [phone] [employer]. [address] [place] [address]. All rights reserved. This information is not intended as a substitute for professional medical care. Always follow yourhealthcare professional's instructions. Additional Information VACCINATE! IT SAVES LIVES! Members of the community who have not yet received the COVID-19 vaccine and would like to receive it can visit one of [facility] vaccine clinics. There are many vaccine clinic locations within the [facility]. For locations and available times, please visit www.gettheshot.coronavirus.[place].gov/. It is important to note that some COVID mobile vaccine clinics are held outdoors and may be canceled in rainy or stormy conditions. To learn more about pediatric vaccinations (ages 5-11), we invite you to visit the [facility] webpage. https://www.[facility].org/pages/4014-Nmzed-Dxtyxgyqvfy-Bgarezpwzx-Fztfu-Rvl stions.htmlTo learn more about the COVID-19 vaccine, we invite you to visit the CDC website for a list of frequently asked questions. https://www.cdc.gov/coronavirus/2019-ncov/vaccines/faq.html [facility] Patient Portal Access Instructions: Stay connected with your healthcare team and access your personal medical information anytime with the [facility] Patient Portal. If you would like a full copy of your medical records please contact the [facility] Medical Records Department Wednesday through Wednesday between 8a.m. and 4:30p.m. Please follow the directions below to access the portal: 1.Access the email account you provided upon registration to the [facility].2.Look for an invitation email from [facility].3.Open the email and access the invitation link: Accept Invitation to [employer]4.Fill in the required alejandro to create your account. Sign into www.Asia Translate with your username and password that you [...] you will allow to register on the [employer] Patient Portal for access to your information. You can also access the [employer] Patient Portal on the BetUknow. Simply click on "Health Records" under "Plurchase" and then click on the Konnects logo. HOW TO SAFELY DISPOSE OF PRESCRIPTION [...] Call your local pharmacy or go to http://SteadyFare.Buyers Edge/3O2Wv7o to find one close to you.3.Make use of household items: Use cat litter or old coffee grounds to dispose medications if other options arenot available. Mix your drugs with these household products, seal them in an airtight container andthrow it into the garbage. Call [facility]: [phone] to be sure your drugs can be [...] aware that I should contact my doctor. Patient/Practice Physician Signature: Date/Time: Relationship to Patient: Witness Name/Signature: Date/Time: [facility]11-12-2024 Note ORIGINAL EXAMINATION: AP lateral [...] by: Jalil Downey MD Preliminary Report By: Jaill Downey MD Electronically signed By Jalil Downey MD Dictated Date: 12/21/2023 4:31:09 PM Prelim Date: 12/21/2023 4:34:05 PM Sign Date: 12/21/2023 4:34:05 PM Ordering Provider: [facility]11-12-2024 Note ORIGINAL EXAMINATION: TWO XRAY VIEWS OF [...] Sign Date: 12/21/2023 4:21:17 PM Ordering Provider: [facility]11-09-2024 Note. MICRO - Microbiology PROCEDURE: Urine Culture [...] This test was performed at: [facility], [address] [place] [address], [phone]- , [facility]10-31-2024 Hospital Discharge instructions Patient Education [...] mid-urethra. Front view of female urinary tract. 2320-6138 [employer]. [address] [place] [address]. All rights reserved. This information is not intended as a substitute for professional medical care. Always follow yourhealthcare professional's instructions. Follow Up Care 12/09/2023 08:33:51 With:LARRY THOMAS DO Address: [address] [place] [phone] When:2-4 days [facility] 10-31-2024 Note Discharge Instructions Thank you for allowing [facility] to assist you with your healthcare needs. The following is importantdischarge information regarding your hospital visit. Diagnosis from Today's Visit Urinary frequency What to Do Next Instructions from Your Care Team No qualifying data available. Post Acute Orders No qualifying data available. You Need to Schedule the Following Appointments Follow Up with LARRY THOMAS DO When:Within 2-4 days Where:[address] [place] [phone] Allergies NKA Medications Please ask your primary [...] mid-urethra. Front view of female urinary tract. 8690-8594 [employer]. [address] [place] [address], [place] [address]. All rights reserved. This information is not intended as a substitute for professional medical care. Always follow yourhealthcare professional's instructions. Additional Information VACCINATE! IT SAVES LIVES! Members of the community who have not yet received the COVID-19 vaccine and would like to receive it can visit one of [facility] vaccine clinics. There are many vaccine clinic locations within the [facility]. For locations and available times, please visit www.gettheshot.coronavirus.[place].gov/. It is important to note that some COVID mobile vaccine clinics are held outdoors and may be canceled in rainy or stormy conditions. To learn more about pediatric vaccinations (ages 5-11), we invite you to visit the [facility] webpage. https://www.[facility].org/pages/6611-Tqnfo-Jmrncdxbfmn-Whgjjfygzp-Aurvd-Ooe stions.htmlTo learn more about the COVID-19 vaccine, we invite you to visit the CDC website for a list of frequently asked questions. https://www.cdc.gov/coronavirus/2019-ncov/vaccines/faq.html [facility] Patient Portal Access Instructions: Stay connected with your healthcare team and access your personal medical information anytime with the [facility] Patient Portal. If you would like a full copy of your medical records please contact the [facility] Medical Records Department Wednesday through Wednesday between 8a.m. and 4:30p.m. Please follow the directions below to access the portal: 1.Access the email account you provided upon registration to the hospital.2.Look for an invitation email from [facility].3.Open the email and access the invitation link: Accept Invitation to [facility]4.Fill in the required alejandro to create your account. Sign into www.Asia Translate with your username and password that you [...] you will allow to register on the [facility] Patient Portal for access to your information. You can also access the [facility] Patient Portal on the [employer] angelica. Simply click on "Health Records" under "HealthData" and then click on the [facility] logo. HOW TO SAFELY DISPOSE OF PRESCRIPTION [...] Call your local pharmacy or go to http://SteadyFare.Buyers Edge/0Z1Xr1d to find one close to you.3.Make use of household items: Use cat litter or old coffee grounds to dispose medications if other options arenot available. Mix your drugs with these household products, seal them in an airtight container andthrow it into the garbage. Call [facility]: [phone] to be sure your drugs can be [...] aware that I should contact my doctor. Patient/Practice Physician Signature: Date/Time: Relationship to Patient: Witness Name/Signature: Date/Time: [facility]10-21-2024 Hospital Discharge instructions Patient Education [...] or swelling over your back or spine 6868-7[address] [employer]. [address] [place] [address], [place] [address]. All rights reserved. This information is not intended as a substitute for professional medical care. Always follow yourhealthcare professional's instructions. Follow Up Care 11/29/2023 08:56:34 With:Go to emergency room if symptoms worsen Address:Unknown When:2-4 days With:LARRY THOMAS DO Address: [address] [place] [address] [place] [phone] When:2-4 days [facility] 10-21-2024 Note Discharge Instructions Thank you for allowing [facility] to assist you with your healthcare needs. [...] LARRY THOMAS DO When:Within 2-4 days Where:[address] [facility] [place] [address]- [phone] Allergies NKA Medications Please ask your primary [...] or swelling over your back or spine 4363-4260 [employer]. [address] [place] [address]. All rights reserved. This information is not intended as a substitute for professional medical care. Always follow yourhealthcare professional's instructions. Additional Information VACCINATE! IT SAVES LIVES! Members of the community who have not yet received the COVID-19 vaccine and would like to receive it can visit one of [facility] vaccine clinics. There are many vaccine clinic locations within the [facility]. For locations and available times, please visit www.gettheshot.coronavirus.[place].gov/. It is important to note that some COVID mobile vaccine clinics are held outdoors and may be canceled in rainy or stormy conditions. To learn more about pediatric vaccinations (ages 5-11), we invite you to visit the [facility] webpage. https://www.[facility].org/pages/6404-Dtkkx-Rmgzgpcdlsm-Njqbeysuif-Oigwn-Fcw stions.htmlTo learn more about the COVID-19 vaccine, we invite you to visit the CDC website for a list of frequently asked questions. https://www.cdc.gov/coronavirus/2019-ncov/vaccines/faq.html [facility] Patient Portal Access Instructions: Stay connected with your healthcare team and access your personal medical information anytime with the [facility] Patient Portal. If you would like a full copy of your medical records please contact the [facility] Medical Records Department Wednesday through Wednesday between 8a.m. and 4:30p.m. Please follow the directions below to access the portal: 1.Access the email account you provided upon registration to the [facility].2.Look for an invitation email from [facility].3.Open the email and access the invitation link: Accept Invitation to [facility] [employer]4.Fill in the required alejandro to create your account. Sign into www.Asia Translate with your username and password that you [...] you will allow to register on the [facility] Patient Portal for access to your information. You can also access the [facility] Patient Portal on the BetUknow. Simply click on "Health Records" under "HealthData" and then click on the [employer] logo. HOW TO SAFELY DISPOSE OF PRESCRIPTION [...] Call your local pharmacy or go to http://bit.Buyers Edge/6G3Ju5j to find one close to you.3.Make use of household items: Use cat litter or old coffee grounds to dispose medications if other options arenot available. Mix your drugs with these household products, seal them in an airtight container andthrow it into the garbage. Call [facility]: [phone] to be sure your drugs can be [...] aware that I should contact my doctor. Patient/Practice Physician Signature: Date/Time: Relationship to Patient: Witness Name/Signature: Date/Time: [facility]10-21-2024 Note ORIGINAL HISTORY: Pain COMPARISON: [...] Sign Date: 11/29/2023 11:51:51 AM Ordering Provider: [facility]03-06-2024 Note ORIGINAL EXAMINATION: CT OF THE HEAD [...] Date: 04/14/2023 10:35:22 AM Ordering Provider: MAHAD [facility]04-26-2023 Miscellaneous Notes* Telephone Encounter - Brenton Jennings RN - 06/03/2022 11:26 AM EDT Received a request from [facility] for all of Ct's left breast cancer treatment medical records. Faxed the request to medical records on [facility], fax confirmation sheet received. Brenton Jennings RN [facility] Note ORIGINAL EXAMINATION: ULTRASOUND OF THE KIDNEYS [...] 04/15/2022 10:15:33 AM Ordering Provider: LARRY THOMAS [facility]03-08-2023 Note ORIGINAL EXAMINATION: ULTRASOUND OF [...] Sign Date: 04/15/2022 10:15:33 AM Ordering Provider: [facility]02-28-2023 NoteHNO ID: [id number] Author: Paula Alaniz MD Service: ? Author [...] needle core breast biopsies on 03/23/2022 at [facility]. Findings of "fat necrosis, inflammation and [...] cancer Kidney Disease Sister Heart disease Brother [place] The review of systems data was entered [...] of skin c (more content not included)... [facility] History of Present illness [...] needle core breast biopsies on 03/23/2022 at [facility]. Findings of "fat necrosis, inflammation and [...] cancer Kidney Disease Sister Heart disease Brother [place] The review of systems data was entered [...] her studies and testing were done at [facility], I have recommended that she proceed with her evaluation/treatment there. The breast radiologists there have recommended wire localization lumpectomy of the left breast. I have told her that I could offer her the same but it would be at [facility]. She states thatshe would prefer [facility] as it is closer to home. [...] [facility] Nurse Note* Mini Brooke, MATILDE - 04/06/2022 [...] [facility] Note ORIGINAL FROM: [place] [address] PROCEDURE FOR: CT DALTON [address] [place] [phone] Home: PID#: [id number] Exam#: [id number] : 1940 Age: 81 TO: ALANNA WRIGHT [place] [address] Fax: NO FAX EXAMINATION: ULTRASOUND OF THE [...] ALANNA WRIGHT CLINICAL: MAMMOGRAPHIC DENSITY LEFT BREAST. Customer Service Receptionist: JOSIE RUIZ RT(R) RDMS letter sent: Biopsy Recommended BI-RADS 4 and 5 Ultrasound BI-RADS: 4 Suspicious for malignancy [facility]12-15-2022 Note ORIGINAL FROM: [place] [address] PROCEDURE FOR: CT DALTON [address] [place] [phone] Home: PID#: [id number] Exam#: [id number] : 1940 Age: 81 TO: ALANNA WRIGHT DO [address] [place] [address] Fax: NO FAX EXAMINATION: ULTRASOUND OF THE [...] ALANNA WRIGHT CLINICAL: MAMMOGRAPHIC DENSITY LEFT BREAST. Customer Service Receptionist: JOSIE RUIZ RT(R) RDMS letter sent: Biopsy Recommended BI-RADS 4 and 5 Ultrasound BI-RADS: 4 [facility] 12-[facility]21 Hospital Discharge instructions Patient Education 12/25/2021 17:00:50 Dizziness, Uncertain Cause Dizziness (Uncertain Cause) Dizziness is a common symptom. It may be described as lightheadedness, spinning, or feeling like you are going to faint. Dizziness can have many causes. Be sure to tell the healthcare provider about: All medicines you take, including prescription, zowj-xyl-gwlhsni, herbs, and supplements Any other symptoms you [...] Chest, arm, neck, back, or jaw pain 5262-7872 [employer]. [address] [place] [address]. All rights reserved. This information is not [...] medicine was given, you may use an wfdn-lua-konnqds product made for clearingearwax (such as Debrox or Murine Earwax Drops). These contain carbamide peroxide and are available zsgu-sgy-pqtkmga. Lie down with the blocked ear facing [...] ear Headache, neck pain or stiff neck 6689-9589 [employer]. [address] [place] [address]. All rights reserved. This information is not intended as a substitute for professional medical care. Always follow yourhealthcare professional's instructions. Follow Up Care 12/25/2021 15:48:16 With:ALANNA WRIGHT DO Address: [address] [place] [address] [place] [phone] When:2-4 days [facility] 11-17-2022 Note Discharge Instructions Thank you for allowing [facility] to assist you with your healthcare needs. [...] WRIGHT DO When Within 2-4 days Where: [facility] [place] [phone] Allergies NKA Medications Please ask your primary [...] about: All medicines you take, including prescription, auru-bgi-hmvqmsh, herbs, and supplements Any other symptoms you [...] Chest, arm, neck, back, or jaw pain 7150-2339 [employer]. [address] [place] [address]. All rights reserved. This information is not [...] medicine was given, you may use an lzne-hnk-xsxdeyc product made for clearingearwax (such as Debrox or Murine Earwax Drops). These contain carbamide peroxide and are available czip-rvo-ejyeovl. Lie down with the blocked ear facing [...] ear Headache, neck pain or stiff neck 9204-5772 [employer]. [address] [place] [address]. All rights reserved. This information is not intended as a substitute for professional medical care. Always follow yourhealthcare professional's instructions. Additional Information VACCINATE! IT SAVES LIVES! Members of the community who have not yet received the COVID-19 vaccine and would like to receive it can visit one of [facility] vaccine clinics. There are many vaccine clinic locations within the [facility]. For locations and available times, please visit www.gettheshot.coronavirus.[place].org. It is important to note that some COVID mobile vaccine clinics are held outdoors and may be canceled in rainy orstormy conditions. To learn more about pediatric vaccinations (ages 5-11), we invite you to visit the [facility] webpage. https://www.[facility].org/pages/5770-Gnkwt-Jtxeejfksbe-Oapeivtwet-Ftuay-Vbr stions.htmlTo learn more about the COVID-19 vaccine, we invite you to visit the [facility] website for a list of frequently asked questions. https://cecil.org/assets/Hksnmsho-rpo-Dzgnbvis/xxufe-Zvxqhyz-Hvwtoabqrq _Asked-Questions.pdf [facility] Patient Portal Access Instructions: Stay connected with your healthcare team and access your personal medical information anytime with the [facility] Patient Portal. If you would like a full copy of your medical records please contact the [facility] Medical Records Department Wednesday through Wednesday between 8a.m. and 4:30p.m. Please follow the directions below to access the portal: 1.Access the email account you provided upon registration to the [facility].2.Look for an invitation email from [facility].3.Open the email and access the invitation link: Accept Invitation to [facility]4.Fill in the required alejandro to create your account. Sign into [email or web address] with your username and password that you [...] you will allow to register on the [facility] Patient Portal for access to your information. You can also access the [facility] Patient Portal on the [employer] angelica. Simply click on "Health Records" under "HealthData" and then click on the [facility] logo. HOW TO SAFELY DISPOSE OF PRESCRIPTION [...] Call your local pharmacy or go to http://bit.ly/1B1Iw7c to find one close to you.3.Make use of household items: Use cat litter or old coffee grounds to dispose medications if other options arenot available. Mix your drugs with these household products, seal them in an airtight container andthrow it into the garbage. Call [facility]: [phone] to be sure your drugs can be [...] aware that I should contact my doctor. Patient/Practice Physician Signature: Date/Time: Relationship to Patient: Witness Name/Signature: Date/Time: [facility] [id number] Hospital Discharge instructions Patient Education 12/06/2021 14:31:46 Dizziness, Utvw-yg-Jqmh Dizziness Dizziness is a common problem. It [...] balance is fine. 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 Take nbee-ifn-ctqxoxq and prescription medicines only as told by [...] 01/14/2012 Document Revised: 01/28/2018 Document Reviewed: 02/11/2017 [employer] Patient Education 2020 [employer] 12/06/2021 14:31:38 Fall Prevention and Home Safety, Yoih-wm-Uitl Fall Prevention and Home Safety Falls cause [...] 11/21/2009 Document Revised: 07/26/2012 Document Reviewed: 04/26/2012 [facility] [place] Patient Information 2015 [employer]. This information is not intended to replace advicegiven to you by your health care provider. Make sure you discuss any questions you have with your health care provider. Follow Up Care 12/03/2021 14:18:30 With:[facility], Address:Unknown When:1-2 days With:ALANNA WRIGHT DO Address: [address] [place] [phone] When:1-2 days Comments:Please call the office to schedule a follow [facility] appointment [facility] [facility] 10-29-2022 Note Discharge Instructions Thank you for allowing [facility] to assist you with your healthcare needs. [...] Screening Bilateral w/ Fer 12/12/2021 03:00 PM [facility] [place] [facility] Follow Up Appointments Follow Up with [facility], When Within 1-2 days Follow Up with ALANNA WRIGHT DO When Within 1-2 days Why: Please call the office to schedule a follow up appointment Where: [facility] [place] [address]- The Following Activity and Diet Have Been [...] balance is fine. 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 Take kcac-lxh-nzqtdbd and prescription medicines only as told by [...] 01/14/2012 Document Revised: 01/28/2018 Document Reviewed: 02/11/2017 [employer] Patient Education 2020 [employer] Fall Prevention and Home Safety Falls [...] Document Reviewed: 04/26/2012 ExitCare Patient Information 2015 [facility]. This information is not intended to replace advicegiven to you by your health care provider. Make sure you discuss any questions you have with your health care provider. Additional Information VACCINATE! IT SAVES LIVES! Members of the community who have not yet received the COVID-19 vaccine and would like to receive it can visit one of [facility] vaccine clinics. There are many vaccine clinic locations within the [facility]. For locations and available times, please visit https://gettheshot.coronavirus.[place].gov/. It is important to note that some COVID mobile vaccine clinics are held outdoors and may be canceled in rainy or stormy conditions. To learn more about pediatric vaccinations (ages 5-11), we invite you to visit the [facility] webpage. https://www.[facility].org/pages/3350-Hlccx-Pruurmnguwd-Hcemsjsyjl-Gowcs-Chv stions.htmlTo learn more about the COVID-19 vaccine, we invite you to visit the [facility] website for a list of frequently asked questions. https://Saberr.[employer]/assets/Ylpdtfjo-unx-Ftrjuqjq/ktryi-Uyjojmt-Xmkypmuctx _Asked-Questions.pdf [facility] Patient Portal Access Instructions: Stay connected with your healthcare team and access your personal medical information anytime with the [facility] Patient Portal.If you would like a full copy of your medical records, please contact the [facility] Medical Records Department, Wednesday through Wednesday between 8a.m. and 4:30p.m. Please follow the directions below to access the portal: 1.Access the email account you provided upon registration to the [facility].2.Look for an invitation email from [facility].3.Open the email and access the invitation link: Accept Invitation to [facility]4.Fill in the required alejandro to create your account. Sign into [email or web address] with your username and password that you [...] you will allow to register on the [facility] Patient Portal for access to your information. You can also access the [facility] Patient Portal on the [employer]. Simply click on "Health Records" under "HealthData" and then click on the [facility] logo. HOW TO SAFELY DISPOSE OF PRESCRIPTION [...] Call your local pharmacy or go to http://SteadyFare.Buyers Edge/5G0Hc1q to find one close to you.3.Make use of household items: Use cat litter or old coffee grounds to dispose medications if other options arenot available. Mix your drugs with these household products, seal them in an airtight container andthrow it into the garbage. Call [facility]: [phone] to be sure your drugs can be [...] CHART COPY. Signatures Patient Education Materials Dizziness, Bpud-yv-Qggv Fall Prevention and Home Safety, Onic-wh-Knty Medication Leaflets My discharge plan and instructions have been reviewed and explained to me and I,CT DALTON understand my current condition and have read and understand these discharge instructions. I have received a written copy of the plan/instructions. If I have questions, I am aware that I should contact my doctor. Patient/Practice Physician Signature: Date/Time: Relationship to Patient: Witness Name/Signature: Date/Time: [facility] [id number] Note Discharge Instructions Thank you for allowing [facility] to assist you with your healthcare needs. [...] Bilateral w/ Fer 12/12/2021 03:00 PM EDT [facility] [facility] Follow Up Appointments Follow Up with [facility], [phone] When Within 1-2 days Follow Up with ALANNA WRIGHT DO When Within 1-2 days Why: Please call the office to schedule a follow up appointment Where: [facility] [place] [address]- The Following Activity and Diet Have Been [...] to receive it can visit one of [facility] vaccine clinics. There are many vaccine clinic locations within the [facility]. For locations and available times, please visit https://gettheshot.coronavirus.[place].gov/. It is important to note that some COVID mobile vaccine clinics are held outdoors and may be canceled in rainy or stormy conditions. To learn more about pediatric vaccinations (ages 5-11), we invite you to visit the [facility] webpage. https://www.[facility].org/pages/9445-Odxfp-Keiwbnvntgl-Vuyzenhjwd-Axsyy-Rer stions.htmlTo learn more about the COVID-19 vaccine, we invite you to visit the [facility] website for a list of frequently asked questions. https://cecil.[employer]/assets/Lyqeidas-zsp-Muhjbudu/xrmpv-Qrlnobq-Keioevygpb _Asked-Questions.pdf [facility] Patient Portal Access Instructions: Stay connected with your healthcare team and access your personal medical information anytime with the [facility] Patient Portal.If you would like a full copy of your medical records, please contact the [facility] Medical Records Department, Wednesday through Wednesday between 8a.m. and 4:30p.m. Please follow the directions below to access the portal: 1.Access the email account you provided upon registration to the [facility].2.Look for an invitation email from [facility].3.Open the email and access the invitation link: Accept Invitation to [facility]4.Fill in the required alejandro to create your account. Sign into [email or web address] with your username and password that you [...] you will allow to register on the [facility] Patient Portal for access to your information. You can also access the [facility] Patient Portal on the BetUknow. Simply click on "Health Records" under "HealthData" and then click on the [facility] logo. HOW TO SAFELY DISPOSE OF PRESCRIPTION [...] Call your local pharmacy or go to http://SteadyFare.Buyers Edge/6E8Nn6a to find one close to you.3.Make use of household items: Use cat litter or old coffee grounds to dispose medications if other options arenot available. Mix your drugs with these household products, seal them in an airtight container andthrow it into the garbage. Call [facility]: [phone] to be sure your drugs can be [...] aware that I should contact my doctor. Patient/Practice Physician Signature: Date/Time: Relationship to Patient: Witness Name/Signature: Date/Time: [id number] Discharge summary Date of Service 12/06/21 Discharge Diagnosis 1. Unsteady gait (R26.81 - ICD-10-CM) 2. Dizziness (R42 - ICD-10-CM) Dizziness ([id number] - PNED) HTN - Hypertension ([id number] - PNED) Additional Orders: Ordered: atenolol 25 mg oral tablet,Dose : 25 mg = 1 tab(s), Oral, qDay, # 30 tab(s), 0 Refill(s), Pharmacy: [facility]/pharmacy #[id number], 160, cm, 12/03/21 21:46:00 EDT, Height Ordered: [...] CT head, chest x-ray, MRI brain, TTE, Gomer- Hallpike unremarkable.ECG showed LBBB, no prior EKG [...] 100 mg daily, hydralazine 25 mg daily, gpvqxatncwlbmpgxuqv11 mg daily, lisinopril 20 mg daily. In [...] schedule a follow up appointment Where: [address] [place] [address]- Follow Up Appointments No qualifying data available. Follow Up Labs/Studies Discharge Labs No Follow-up Labs Discharge Studies No Follow-up Studies Discharge Diet No qualifying data available. Discharge Activity No qualifying data available. Readmission Risk/Palliative Score No qualifying data available. Digitally Signed by CODY RILEY MD on 12/06/2021 11:43 AM [facility] [id number] Discharge summary Date of Service 12/06/21 Discharge Diagnosis 1. Unsteady gait (R26.81 - ICD-10-CM) 2. Dizziness (R42 - ICD-10-CM) Dizziness ([id number] - PNED) HTN - Hypertension ([id number] - PNED) Additional Orders: Ordered: atenolol 25 mg oral tablet,Dose : 25 mg = 1 tab(s), Oral, qDay, # 30 tab(s), 0 Refill(s), Pharmacy: [facility]/pharmacy #[id number], 160, cm, 12/03/21 21:46:00 EDT, [...] CT head, chest x-ray, MRI brain, TTE, Gomer- Hallpike unremarkable.ECG showed LBBB, no prior EKG [...] 100 mg daily, hydralazine 25 mg daily, hdlkzjvirleiwmlqgsf70 mg daily, lisinopril 20 mg daily. In [...] schedule a follow up appointment Where: [address] [place] [address] Medicine [place], [place] [id number]- Follow Up Appointments No qualifying data available. Follow Up Labs/Studies Discharge Labs No Follow-up Labs Discharge Studies No Follow-up Studies Discharge Diet No qualifying data available. Discharge Activity No qualifying data available. Readmission Risk/Palliative Score No qualifying data available. Digitally Signed by CODY RILEY MD on 12/06/2021 11:43 AM [facility] HospitalUvvaguwg06-01-1774 Note Chief Complaint Transition plan Transitional Action Points Currently is transition over to [facility] in [place] is able to accept Patient echo explained [...] are recommending SNF. She was excepted by [facility] in [place], will require COVID screen prior to transfer. [...] Rate18(DEC 06 03:45)18(DEC 05 14:26)20(DEC 05 08:09) KLV027(DEC 06 03:45)104(DEC 05 14:26)H 160(DEC 05 18:48) DBPL 53(DEC 06 03:45)L 53(DEC 05 18:48)70(DEC 05 23:53) Problem List/ Past Medical History Breast cancer Hypertension Medicare annual wellness visit, subsequent Memory impairment Mixed hyperlipidemia Osteoarthritis Postmenopausal state Right arm pain Vulvar lesion Leukoplakia of vulva Procedure/ Surgical History Lumpectomy of left breast Final Expense Agent Tubal ligation Medication List Active Medications Ordered [...] EDT, Full Code, Constant Order I Gladys Betancoutr LPN, am scribing for Magdalena Ashley NP, [...] ASHLEY on 12/06/2021 09:45 AM [facility] [id number] Note ORIGINAL EXAMINATION: TWO XRAY VIEWS OF [...] AM Ordering Provider: FRIEDA HOLLAND [facility] [id number] Note Date of Service 12/05/2021 Subjective 81-year-old [...] roomrequired assistance which is not patient's baseline. Gomer-Hallpike was performed in ED documented asnegative. Patient was transfer from [place] to [facility] for further cardiovascular work-up. Orthostatics performed and [...] Zara no answer, called patient's son Ang [phone] Who states that patient's mental status has [...] MD on 12/05/2021 06:41 PM [facility] HospitalPvvkcxcz59-89-1586 Note ORIGINAL EXAMINATION: TWO XRAY VIEWS OF [...] Sign Date: 12/06/2021 12:06:38 AM Ordering Provider: [facility]10-28-2022 Note ORIGINAL EXAMINATION: MR Brain with [...] pathology. 2. Moderate parenchymal volume loss and ainu-ew-hlaybirg chronic microvascular white matter ischemic disease. Interpreted by: Alanna Chin MD Preliminary Report By: Alanna Chin MD Electronically signed By Alanna Chin MD Dictated Date: 12/05/2021 1:36:40 PM Prelim Date: 12/05/2021 1:40:15 PM Sign Date: 12/05/2021 1:40:15 PM Ordering Provider: ANA [facility]10-28-2022 Note ORIGINAL EXAMINATION: MR Brain with [...] pathology. 2. Moderate parenchymal volume loss and friz-jq-ospfisud chronic microvascular white matter ischemic disease. Interpreted by: Alanna Chin MD Preliminary Report By: Alanna Chin MD Electronically signed By Alanna Chin MD Dictated Date: 12/05/2021 1:36:40 PM Prelim Date: 12/05/2021 1:40:15 PM Sign Date: 12/05/2021 1:40:15 PM Ordering Provider: [facility]10-28-2022 Note Date 12/05/2021 Chief complaint Transition [...] Physical therapy notes on 12/04 recommending SNF. 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 Patient was transfer from [place] to [facility] for further cardiovascular work-up. Orthostatics performed and negative. On review of telemetry patient with episodes of bradycardia will decre ase atenolol. Patient ordered for MRI TTE and carotid duplex. PT/OT evaluation pending. Patient seen and examined this morning Patient does appear to have advanced dementia She does know that she is in [place] but speaks in a roundabout way about [...] MD on 12/04/2021 03:40 PM [facility] HospitalDxhgghqz58-53-8327 Note Chief Complaint Transition Plan. Transitional Action [...] Procedure/ Surgical History Lumpectomy of left breast Final Expense Agent Tubal ligation Medication List Active Medications Ordered [...] ASHLEY on 12/04/2021 02:59 PM [facility] HospitalOzixcvuk19-90-7224 History and physical note [facility] Hospitalist History and Physical Date of Admission: 12/03/2021 Chief complaint: Dizziness History of present illness: History is taken from talking with the patient. Patient was accepted asa transfer from [place] emergency department by my colleague. Patient has [...] Postmenopausal state Right arm pain Vulvar lesion Final Expense Agent Tubal ligation Family history: Mother: High blood [...] Rate18(DEC 03 21:30)16(DEC 03 14:53)20(DEC 03 14:26) SIW482(DEC 03 21:30)136(DEC 03 21:30)H 187(DEC 03 16:20) [...] Appearance (POC): Clear (12/03/21 16:12:00) Urine Specific [place] (POC): <=1.005 Abnormal (12/03/21 16:12:00) Urine Glucose [...] Patient was accepted as a transfer from [facility] emergency department by my colleague on [...] MD on 12/03/2021 09:55 PM [facility] HospitalLsmyrhne89-13-1274 Note ORIGINAL EXAMINATION: CT OF THE HEAD [...] Date: 12/03/2021 4:02:30 PM Ordering Provider: BLANCA [facility]10-26-2022 Note ORIGINAL EXAMINATION: CT OF THE [...] Date: 12/03/2021 4:02:30 PM Ordering Provider: BLANCA [facility]10-26-2022 Evaluation + Plan noteExtracted from: Title:Clinical Document Author:ANA WILSON MD Date:12/03/21 [facility] Hospital[facility] History and Physical Date of Admission: 12/03/2021 Chief complaint: Dizziness History of present illness: History is taken from talking with the patient. Patient was accepted as a transfer from [place] emergency department by my colleague. Patient has [...] Postmenopausal state Right arm pain Vulvar lesion Final Expense Agent Tubal ligation Family history: Mother: High blood [...] Rate18(DEC 03 21:30)16(DEC 03 14:53)20(DEC 03 14:26) DUX114(DEC 03 21:30)136(DEC 03 21:30)H 187(DEC 03 16:20) [...] Appearance (POC): Clear (12/03/21 16:12:00) Urine Specific [place] (POC): <=1.005 Abnormal (12/03/21 16:12:00) Urine Glucose [...] Patient was accepted as a transfer from [facility] emergency department by my colleague on [...] Screening Bilateral w/ Fer 12/12/21 [facility] Discharge summary Author Jean Claude Harry [facility] Note Date/Time July 24, 2024 3:52 am [facility] Medical Records Department [address] [place] [address] Emergency Department Summary 07/24/24 MR#: [id number] Acct: [id number] Name: CT DALOTN Rep #:[id number] : 1940 83 From: Jean Claude Harry [...] mg PO DAILY 04/20/17 04/27/17 08:00 History csadkodtkecq-Dc-jpgb-minerals 1 ea PO DAILY 04/20/17 U nknown [...] range of motion. 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 Neurologically she is awake and alert. [...] Right hip moderate degenerative changes. Reading Location: [place] [address] Right hip and pelvis x-ray, 3 views, [...] obviously lying in bed. Tylenol for pain. [place] as needed for pain also. Print Language: Chinese Disposition Disposition: Home, Self Care What to do if you have Problems For any increased pain, shortness of breath, bleeding, nausea or vomiting, chestpain, or any unexpected problems, contact your Primary Care Provider. Call [facility] ([phone]) or report to the closest Emergency Room. Call 911 if necessary. 07/24/242 <Electronically signed by Jean Claude Harry MD> Cosigner Signature (if applicable): CC: Dr. Jairon Medel MD ~ Signed [facility] Work Phone: Evaluation + Plan note Future Appointments Appointment Date:05/05/2021 09:00:00 AM Scheduled Provider:ALANNA WRIGHT DO Location:[facility] Appointment Type:[facility] Evaluation + Plan note Future Appointments Appointment Date:11/06/2021 08:30:00 AM Scheduled Provider:ALANNA WRIGHT DO Location:[facility] [place] Appointment Type:PC Wellness Medicare with Labs Future Scheduled Tests Radiology* XR Humerus Minimum 2 Views Right 05/05/21 [facility] evaluation + Plan note Future Appointments Appointment Date:01/15/2022 02:00:00 PM Scheduled Provider: Location:[facility] Appointment Type:MA Mammogram Screening Bilateral w/ Fer Appointment Date:02/25/2022 10:00:00 AM Scheduled Provider:LARRY THOMAS DO Location:[facility] Appointment Type:PC EXECUTIVE COACH Appointment Date:03/13/2022 10:30:00 AM Scheduled Provider:ALANNA WRIGHT DO Location:[facility] [place] Appointment Type:PC OV Future Scheduled Tests Radiology* MA Mammo Screening Bilateral w/ Fer 01/15/22 [facility] Weight Winsaluation + Plan note Future Appointments Appointment Date:02/25/2022 10:00:00 AM Scheduled Provider:LARRY THOMAS DO Location:[facility] [place] Appointment Type:PC EXECUTIVE COACH Appointment Date:03/13/2022 10:30:00 AM Scheduled Provider:ALANNA WRIGHT DO Location:[facility] [place] Appointment Type:PC OV Future Scheduled Tests Radiology* US Biopsy Breast Left 1st Lesion 01/22/22 [facility] evaluation + Plan note Future Appointments Appointment Date:03/05/2022 10:00:00 AM Scheduled Provider:LARRY THOMAS DO Location:[facility] [place] Appointment Type:PC EXECUTIVE COACH Appointment Date:03/13/2022 10:30:00 AM Scheduled Provider:ALANNA WRIGHT DO Location:[facility] [place] Appointment Type:PC OV Appointment Date:03/23/2022 01:00:00 PM Scheduled Provider: Location:[facility] Appointment Type:US Biopsy Breast Left 1st Lesion Future Scheduled Tests Radiology* US Biopsy Breast Left 1st Lesion 03/23/22 [facility] evaluation + Plan note Future Appointments [...] 03/23/22 * US Renal 03/09/22 [facility] Evaluation + Plan note Future Appointments Appointment Date:04/16/2022 04:30:00 PM Scheduled Provider:LARRY THOMAS DO Location:[facility] Appointment Type:PC OV Future Scheduled Tests Laboratory* Hepatic Function Panel 04/13/22 Radiology* US Renal 03/09/22 [facility] Evaluation + Plan note Future Appointments Appointment Date:04/15/2022 07:30:00 AM Scheduled Provider: Location:[facility] Appointment Type:US Renal Appointment Date:04/16/2022 04:30:00 PM Scheduled Provider:LARRY THOMAS DO Location:[facility] [place] Appointment Type:PC OV Appointment Date:05/28/2022 10:00:00 AM Scheduled Provider:ANISA GOMEZ MD Location:[facility] Appointment Type:LIYAH EXECUTIVE COACH Future Scheduled Tests Radiology* US Renal 04/15/22 [facility] Evaluation + Plan note Future Appointments Appointment Date:04/16/2022 04:30:00 PM Scheduled Provider:LARRY THOMAS DO Location:[facility] [place] Appointment Type:PC OV Appointment Date:05/28/2022 10:00:00 AM Scheduled Provider:ANISA GOMEZ MD Location:[facility] Appointment Type:BS EXECUTIVE COACH [facility] Evaluation + Plan note Future [...] Skeleton Appointment Date:03/16/2023 10:00:00 AM Scheduled Provider:LARRY HTOMAS DO Location:[facility] Appointment Type:PC OV Future Scheduled Tests Radiology* BD Bone Density DEXA Axial Skeleton 12/14/22 [facility] Evaluation + Plan note Future Appointments Appointment Date:06/15/2023 10:30:00 AM Scheduled Provider:LARRY THOMAS DO Location:[facility] Appointment Type:PC OV Diagnostic Tests Pending * Methylmalonic Acid, Serum 04/07/23 [facility] Evaluation + Plan note Future Appointments Appointment Date:06/15/2023 10:30:00 AM Scheduled Provider:LARRY THOMAS DO Location:[facility] Appointment Type:PC OV [facility] Evaluation + Plan note Future Appointments Appointment Date:12/15/2023 10:00:00 AM Scheduled Provider:LARRY THOMAS DO Location:[facility] Appointment Type:PC OV [facility] evaluation + Plan note Future Appointments Appointment Date:12/29/2023 01:30:00 PM Scheduled Provider:LARRY THOMAS DO Location:[facility] Appointment Type:PC OV Diagnostic Tests Pending * Vitamin B12 Level 12/15/23 * Folate Level 12/15/23 Future Scheduled Tests Laboratory* Calcium Level Ionized 12/15/23 * Urine Culture 12/15/23 Radiology* XR Spine Lumbar W/Obliques 4 Views 12/15/23 [facility] evaluation + Plan note Future Appointments Appointment Date:12/29/2023 01:30:00 PM Scheduled Provider:LARRY THOMAS DO Location:[facility] Appointment Type:PC OV Future Scheduled Tests Laboratory* Calcium Level Ionized 12/15/23 Radiology* XR Chest 2 Views (PA & Lateral) 12/19/23 * XR Spine Lumbar W/Obliques 4 Views 12/15/23 [facility] Evaluation + Plan note Future Appointments Appointment Date:12/29/2023 01:30:00 PM Scheduled Provider:LARRY THOMAS DO Location:[facility] Appointment Type:PC OV Future Scheduled Tests Laboratory* Calcium Level Ionized 12/15/23 [facility] Evaluation + Plan note Future Appointments Appointment Date:02/16/2024 09:30:00 AM Scheduled Provider:LARRY THOMAS DO Location:[facility] Appointment Type:PC OV Future Scheduled Tests Radiology* US Bladder 12/29/23 [facility] Evaluation + Plan note Future Appointments Appointment Date:02/16/2024 09:30:00 AM Scheduled Provider:LARRY THOMAS DO Location:[facility] Appointment Type:PC OV [facility] Evaluation note* Diagnosis Abnormal ultrasound of breast Other (abnormal) findings on radiological examination of breast History of left breast cancer documented in [facility] noteNo assessment information availableWAultman Orr[facility] Work Phone: Hospital course Narrative No data available for this section [facility] Hospital Discharge instructions No data available for this section [facility] Hospital Discharge instructions Additional Instructions She has a superior pubic ramus fracture which is a pelvis fracture. These are not treated with surgery. They generally heal over weeks to months. She can do activity as tolerated. She may walk or be in a wheelchair or obviously lying in bed. Tylenol for pain. [place] as needed for pain also.[facility] Work Phone: Progress note No data available for this section [facility] Reason for referral (narrative)No reason for referral information availableWAultman Orr[facility] Work Phone: Chief Complaint Chief Complaint [...] Visit Chief Complaint Admit Date ADMISSION EXAM EXECUTIVE COACH February 24, 2024 3 :20pm [facility] WORK February 28, 2024 5:00am ADMISSION EXAM February 29, 2024 1 1:54am [facility] LAB WORK March 27 5:00am LABWORK April 03, 2024 5:00am NEW CONCERN April 03, 2024 2:22pm LABWORK May 01, 2024 5:0 0am Chief Complaint Admit Date ADMISSION EXAM EXECUTIVE COACH February 24, 2024 3 :20pm [facility] 00am Chief Complaint Admit Date ADMISSION EXAM EXECUTIVE COACH February 24, 2024 3 :20pm [facility] 0am Chief Complaint Admit Date ADMISSION EXAM EXECUTIVE COACH February 24, 2024 3 :20pm [facility] [...] content) DATE CREATED AUTHOR 03/11/2018 [facility] DATE CREATED AUTHOR AUTHOR'S ORGANIZ ATION 06/04/2022 [facility] DATE CREATED AUTHOR AUTHOR'S ORGANIZ ATION 07/09/2023 [facility] DATE CREATED AUTHOR AUTHOR'S ORGANIZ ATION 02/24/2024 [facility] DATE CREATED AUTHOR AUTHOR'S ORGANIZ ATION 03/28/2024 [facility] DATE CREATED AUTHOR AUTHOR'S ORGANIZ ATION 12/20/2024 [facility] Care Team (unrecognized sect ion and content) Care Team Personnel Name: ALANNA RWIGHT DO Position: P4 Physician - Primary Care Member Role: Primary Care Physician Address: Address: [address] [place] [address] Name: Venkata Alegria RN Position: ED RN Member Role: ED RN Name: BLANCA ARRIETA DO Position: P4 ED Physician II Member Role: ED Physician Address: Address: [address] [place] [address]- Care Team Related Persons Name: ZARA DALTON Address: Home [address], [place] [phone] [place] Care Team Personnel Name: ALANNA WRIGHT DO Position: P4 Physician - Primary Care Member Role: Primary Care Physician Address: Address: [address] [place], [place] [address] Name: Danette Busch RN Position: RN Member Role: RN Name: INES DENNIS MD Position: ED Physician Member Role: Attending Physician Address: Address: [facility] [address] [place] [address]- Care Team Related Persons Name: ZARA DALTON Address: Home [address], [place] [phone] [place] Care Team Personnel Name: ALANNA WRIGHT DO Position: P4 Physician - Primary Care Member Role: Primary Care Physician Address: Address: [address] [place] [address]- Care Team Related Persons Name: ZARA DALTON Address: Home [address] [place], [place] [phone] [place] Care Team Personnel Name: LARRY THOMAS DO Position: P4 Physician - Primary Care Member Role: Primary Care Physician Address: Address: [address] [place] [address]- Care Team Related Persons Name: ZARA DALTON Address: Home [address], [place] [phone] [place] Care Team Personnel Name: LARRY THOMAS DO Position: P4 Physician - Primary Care Member Role: Primary Care Physician Address: Address: [address] [place] [address]- Care Team Related Persons Name: ZARA DALTON Address: Home [address] [place], [place] [phone] [place] Care Team Personnel Name: LARRY THOMAS DO Position: P4 Physician - Primary Care Member Role: Primary Care Physician Address: Address: [address] [place] [address]- Care Team Related Persons Name: ZARA DALTON Address: Home [address], [place] [phone] [place] Care Team Personnel Name: LARRY THOMAS DO Position: P4 Physician - Primary Care Member Role: Primary Care Physician Address: Address: [address] [place] [address]- Care Team Related Persons Name: ZARA DALTON Address: Home [address], [place] [phone] [place] Care Team Personnel Name: LARRY THOMAS DO Position: P4 Physician - Primary Care Member Role: Primary Care Physician Address: Address: [address] [place] [address]- Care Team Related Persons Name: ZARA DALTON Address: Home [address], [place] [phone] [place] Source Comments (unrecognize d section and content) In the event this informatio n is protected by the Federal Confidentiality of Alcohol and Drug Abuse Patient Records regulations: The Federal rules restrict any use of the information to criminally investigate or prosecute any alcohol or drug abuse patient.[facility] Shaw[facility] the event this information is protected by the Federal Confidentiality of Alcohol and Drug Abuse Patient Records regulations: The Federal rules restrict any use of the information to criminally investigate or prosecute any alcohol or drug abuse patient.[facility] Care Teams (unrecognized sec tion and content) [...] 2024 End: April 26, 2024 Jane Tickton EXECUTIVE COACH, EXECUTIVE COACH-C Attending Provider Active Start: April 26, 2024 [...] July 24, 2024 End: July 24, 2024 Supervisor Sewer Maintenance Relationship Specialty Start Date End Date Larry Thomas, [address] [place] [address] PCP - General Family Medicine 03/30/22 Lachelle Cervantes MD, [address] [place], [place] [address] Physician Radiation Oncology 05/11/17 Kesha Davidson RN Specialty Graphite Grinder Oncology 07/28/17 Supervisor Sewer Maintenance Relationship Specialty Start Date End Date Larry Thomas, [address] [place] [address] PCP - General Family Medicine 03/30/22 Lachelle Cervantes MD, [address] [place], [place] [address] Physician Radiation Oncology 05/11/17 Kesha Davidson RN Specialty Graphite Grinder Oncology 07/28/17 Team Status: Active Member Role Status Dates Dr. Warner Leos Jr., MD Family Provider Active Dr. Warner Leos Jr., MD Primary Care Provider Active Team Status: Inactive Member Role Status Dates Dr. Warner Leos Jr., MD Primary Care Provider Active Start: February 24, 2024 End: February 24, 2024 Jane Barth EXECUTIVE COACH, EXECUTIVE COACH-C Attending Provider Active Start: February 24, 2024 [...] 2024 End: May 12, 2024 Jane Barth EXECUTIVE COACH, EXECUTIVE COACH-C Attending Provider Active Start: May 12, 2024 End: May 12, 2024 Team Status: Inactive Member Role Status Dates Dr. Jairon Medel MD Primary Care Provider Active Start: May 23, 2024 End: May 23, 2024 Jane Barth EXECUTIVE COACH, EXECUTIVE COACH-C Attending Provider Active Start: May 23, 2024 End: May 23, 2024 Team Status: Active Member Role/Relationship Status Dates Dr. Jairon Medel MD Primary Care Provider Active Team Status: Inactive Member Role/Relationship Status Dates Dr. Warner Leos Jr., MD Primary Care Provider Active Start: April 26, 2024 End: April 26, 2024 Jane Barth EXECUTIVE COACH, EXECUTIVE COACH-C Attending Provider Active Start: April 26, 2024 [...] 2024 End: May 12, 2024 Jane Barth EXECUTIVE COACH, EXECUTIVE COACH-C Attending Provider Active Start: May 12, 2024 [...] 2024 End: May 23, 2024 Jane Barth EXECUTIVE COACH, EXECUTIVE COACH-C Attending Provider Active Start: May 23, 2024 [...] 2024 End: May 12, 2024 Jane Barth EXECUTIVE COACH, EXECUTIVE COACH-C Attending Provider Active Start: May 12, 2024 [...] 2024 End: May 23, 2024 Jane Barth EXECUTIVE COACH, EXECUTIVE COACH-C Attending Provider Active Start: May 23, 2024 [...] 2024 End: July 24, 2024 Jane Barth EXECUTIVE COACH, EXECUTIVE COACH-C Attending Provider Active Start: July 24, 2024 [...] 2024 End: July 24, 2024 Jane Barth EXECUTIVE COACH, EXECUTIVE COACH-C Attending Provider Active Start: July 24, 2024 [...] Inactive Member Role/Relationship Status Dates Dr. Jairon eMdel MD Primary care physician Activ e Start: July 24, 2024 End: July 24, 2024 Dr. Jean Claude Harry MD Attending physician Active Start: July 24, 2024 End: July 24, 2024 Dr. Jean Claude Harry MD [facility] Physician Active Start: July 24, 2024 End: July 24, 2024 Team Status: Inactive Member Role/Relationship Status Dates Dr. Jairon Medel MD Primary care physician Activ e Start: July 24, 2024 End: July 24, 2024 Jane Barth EXECUTIVE COACH, EXECUTIVE COACH-C Attending physician Active Start: July 24, 2024 [...] Status: Active Member Role/Relationship Status Dates Dr. aJiron Medel MD Primary care physician Activ e [...] BE BASED ON THE PRIMARY CLINICAL RECORDS. [employer] provides no warranty or guarantee of the accuracy or completeness of information in this document.
[2025-01-08 08:06] LABS: Hematocrit 31.3 % (37-47); Hemoglobin 9.8 g/dL (12.0-15.0); Immature Granulocytes Count 0.030 X10^3/uL (0.0-0.0); Mean Corp Hgb Conc 31.3 g/dL (32-36); Mean Corpuscular Volume 90.5 fL (81-99); Mean Platelet Vol. 10.0 fl (6.2-12.0); NRBC Flagged by Analyzer 0 % (0-5); Platelet Count 271 K/mm3 (150-450); RBC Distribution Width CV 13.2 % (11.6-14.6); RBC Distribution Width SD 43.7 fl (35.1-43.9); Red Blood Count 3.46 M/mm3 (4.2-5.4); White Blood Count 6.8 K/mm3 (4.4-11.0)
[2025-01-08 08:20] LABS: Anion Gap 9 (5-15); BUN 23 mg/dL (4-19); BUN/Creat Ratio 22.7 RATIO (10-20); Calcium,Total 9.5 mg/dL (7.6-11.0); Carbon Dioxide 25.6 mmol/L (21.0-32.0); Chloride 104 mmol/L (98-108); Glucose 91 mg/dL (70-99); Potassium 4.2 mmol/L (3.3-5.1)
== END ==
LOC: OLS.WHLCAR 05:00
PROVIDERS: PCP Internal Medicine; Visit Provider Internal Medicine
DX: G30.9 Alzheimer's disease, unspecified (principal); F02.B11 Dementia in other diseases classified elsewhere, moderate, with agitation; I12.9 Hypertensive chronic kidney disease with stage 1 through stage 4 chronic kidney disease, or unspecified chronic kidney disease; N18.9 Chronic kidney disease, unspecified
CPT/HCPCS: 36415; 80048; 85025

== ENCOUNTER → 2025-02-05 | Outpatient (REF) | payer MEDICARE, OTHER, SELFPAY ==
--- OUTSIDE RECORDS SUMMARY | 2025-02-05 04:17 | XMS RPT_ITS | CCD ---
Author Organization [facility] Inform ion Partnership [facility] Care Team Providers Care Security Systems Integrator Name Role Phone Carla Dye MD Unavailable [phone] PAULA ALANIZ Referring Unavailable PAULA ALANIZ Referring Unavailable ADRIANA , ALANNA Herrera Primary Care Physician MICAHAR DO, DR GAO Primary Care Physician [phone] Billy PARKER MD, Dabrandenung Unavailable [phone] Stuart RN, Kesha Unavailable Unavailable Micahar [...] DR GAO Attending Unavailable ROMAR DO, DR AGO Primary Care Unavailable MAURA PARKER, MAHAD Attending [...] ROMAR DO, DR GAO Primary Care Unavailable [place] DOUBLE CUT OFF 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, ELDA Admitting Unavail able SNEHA PARKER, ESPERANZA Attending Unavailable ROMAR DO, DR GAO Primary Care Unavailable ROMAR DO, DR GAO Attending Unavailable ROMAR DO, DR GAO Primary Care Unavailable ROMAR DO, DR GAO Attending Unavailable ROMAR DO, DR GAO Primary Care Unavailable ROMAR DO, DR GAO Primary Care Unavailable ROMAR DO, DR GAO Attending Unavailable Deric PARKER, Dr. Hylton Primary Care Provider Lary SLATE CUTTER OPERATOR-C, Jane Attending Provider Jairon Medel MD Attending Provider Unavailsteffany Medel MD, Dr. De La O Attending Provider Jairon Medel MD Referring Provider UnavailDr. Warner Norton MD Primary Care Provider Jairon Medel MD Attending Provider Unavailsteffany Barth SLATE CUTTER OPERATOR-C, Jane Attending Provider Gianfranco PARKER, Dr. De La O Attending Provider Dr. Jairon Medel MD Primary Care Provider Dr. Jean Claude Harry MD Emergency Provider Deric PARKER, Dr. Hylton Primary Care Provider Jairon Medel MD Attending Provider UnavailDr. Jairon Morris MD Primary Care Provider Dr. Warner Leos MD Primary Care Provider Lary SLATE CUTTER OPERATOR-C, Jane Attending Provider Jairon Medel MD Attending Provider Unavailsteffany Medel MD, Dr. De La O Attending Provider Piero PARKER, Dr. Silverio Attending Provider Deric PARKER, Dr. Hylton Primary Care Provider Lary SLATE CUTTER OPERATOR-C, Jane Attending Provider Deric PARKER, Dr. Hylton Primary Care Provider Gianfranco PARKER, Jairon Attending Provider Unavaila katerina Medel MD, Jairon Referring Provider Unavailsteffany Medel MD, Dr. De La O Primary Care Provider Lary SLATE CUTTER OPERATOR-C, Jane Attending Provider Sameer PARKER, Dr. Dumont Attending Provider Gianfranco PARKER, Dr. De La O Primary Care Physician Piero PARKER, Dr. Silverio Attending Physician Piero PARKER, Dr. Silverio Emergency Department Physici an Lary SLATE CUTTER OPERATOR-C, Jane Attending Physician Sameer PARKER, Dr. Dumont [...] Oleghe OLS, Efewongbe Attending Unavailabl e [place] SLATE CUTTER OPERATOR, Jane Attending Unavailable Deric Rodriguez, Warner Primary Care Unavailable [place] SLATE CUTTER OPERATOR, Jane Attending Unavailable Deric Rodriguez, Warner Primary Care Unavailable Oleghe, Efewongbe Primary Care Unavailable [place] SLATE CUTTER OPERATOR, Jane Attending Unavailable Oleghe, Efewongbe Primary Care Unavailable Jean Claude Harry Attending Unavailable Oleghe OLS, Efewongbe Attending Unavailthea Leos Jr., Warner Primary Care Unavailable Oleghe OLS, Efewongbe Attending Unavailabl e Oleghe OLS, Efewongbe Referring Unavailthea Leos Jr., Warner Primary Care Unavailable Oleghe OLS, Efewongbe Attending Unavailthea Leos Jr., Warner Primary Care Unavailable Oleghe, Efewongbe Primary Care Unavailable [place] SLATE CUTTER OPERATOR, Jane Attending Unavailable [place] SLATE CUTTER OPERATOR, Jane Attending Unavailable Deric Rodriguez, Warner Primary Care Unavailable Oleghe, Efewongbe Attending Unavailable Deric Rodriguez, Warner Primary Care Unavailable [place] SLATE CUTTER OPERATOR, Jane Attending Unavailable Oleghe, Efewongbe Primary Care Unavailable Oleghe, Efewongbe Attending Unavailable Oleghe, Efewongbe Primary Care Unavailable Oleghe, Efewongbe Primary Care Unavailable [place] SLATE CUTTER OPERATOR, Jane Attending Unavailable Oleghe OLS, Efewongbe Attending Unavailabl e Deric Rodriguez, Warner Primary Care Unavailable Allergies Allergy Classification Reported Allergen(s) Allergy Type Date of Onset Reaction(s) Facility (1 source) Sulfacetamide Drug Allergy 4 rash [facility] Work Phone: (10 sources) Sulfonamides (Antibiotic); Translations: [SULFA (SULFONAMIDE ANTIBIOTICS)] Propensity to adverse reactions to drug (disorder) 8 Intolerance [facility] Other [place] [facility] Medications Current Medications Medication Drug Class(es) [...] taking., # 12 tab(s), 1 Refill(s), Pharmacy: [facility]/pharmacy #[id number], 155, cm, 12/15/23 10:32:00 EST, [...] taking., # 12 tab(s), 1 Refill(s), Pharmacy: [facility]/pharmacy #[id number], 153.5, cm, 06/15/23 10:26:00 EDT, Height, kg, 06/15/23 10:26:00 EDT, Dosing Weight Start Date: 06/15/23 Stop Date: 11/30/23 Status: Ordered anastrozole 1 mg oral tablet (20 sources) Aromatase Inhibitor Start: 09-28-2023 take 1 tablet by mouth once daily in the evening anastrozole 1 mg oral tablet 1 tab(s), Oral, qPM, # 90 tab(s), 0 Refill(s), [id number] 153.5, cm, 06/15/23 10:26:00 EDT, [...] qPM, # 90 tab(s), 1 Refill(s), Pharmacy: [facility] STORE [id number], 154.5, cm, 11/18/21 13:32:00 EDT, Height, kg, 11/18/21 13:32:00 EDT, Dosing Weight Start Date: 11/21/21 Status: Ordered Start: 03-20-2020 End: 04-05-2021 take 1 tablet by mouth once daily anastrozole 1 mg oral tablet 1 tab(s), Oral, qDay, # 90 tab(s), 1 Refill(s), Pharmacy: [facility] STORE [id number], 155, cm, 11/04/20 8:28:00 EDT, Height, kg, 11/11/20 8:26:00 EDT, Dosing Weight Start Date: 04/17/21 Status: Ordered Start: 01-12-2018 ARIMIDEX 1 MG TABS 1 tablet daily ANASTROZOLE [id number] Vidya Babin LPN Comment on above: TAKE 1 TABLET BY CHARLES TH EVERY DAY aspirin 81 mg delayed release oral tablet (20 sources) Platelet Aggregation Inhibitor, Nonsteroidal Anti-inflammatory Drug Start: 10-05-2023 End: 04-02-2024 aspirin 81 mg oral delayed release tablet Dose : 81 mg = 1 tab(s), Oral, qAM, do not crush or chew, # 90 tab(s), 1 Refill(s), Pharmacy: [facility]/pharmacy #[id number], 153.5, cm, 06/15/23 10:26:00 EDT, Height, kg, 06/15/23 10:26:00 EDT, Dosing Weight Start Date: 10/05/23 Stop Date: 04/02/24 Status: Ordered Start: 03-05-2022 End: 05-20-2023 aspirin 81 mg oral delayed r elease tablet Dose : 81 mg = 1 tab(s), Oral, qAM, do not crush or chew, # 90 tab(s), 3 Refill(s), Pharmacy: [facility]/pharmacy #[id number], 154.3, cm, 04/16/22 16:12:00 EST, [...] qPM, # 100 tab(s), 1 Refill(s), Pharmacy: [facility]/pharmacy #[id number], 155, cm, 12/15/23 10:32:00 EST, Height, kg, 12/15/23 10:26:00 EST, Dosing Weight Start Date: 12/15/23 Stop Date: 07/02/24 Status: Ordered Quantity: 100.0 Unit: tab(s) Repeat number: 2 Start: 09-13-2023 End: 12-12-2023 atorvastatin 20 mg oral tabl et Dose : 20 mg = 1 tab(s), Oral, qPM, # 90 tab(s), 0 Refill(s), [id number], 153.5, cm, 06/15/23 10:26:00 EDT, [...] qDay, # 45 tab(s), 1 Refill(s), Pharmacy: [facility] STORE [id number], 155, cm, 05/05/21 8:51:00 EDT, Height, kg, [...] Ordered Start: 04-20-2017 take 2 tablets by [facility] at bedtime Start: 10-27-2013 take 1 tablet by [facility] at bedtime Atorvastatin 10 MG tablet [...] qAM, # 90 cap(s), 0 Refill(s), [id number], 156.2, cm, 07/01/22 6:28:00 EDT, Height, kg, 07/01/22 6:28:00 EDT, Dosing Weight Start Date: 08/10/22 Status: Ordered Start: 12-07-2016 take 1 capsule by [facility] once daily in the morning celecoxib 100 mg oral capsule 1 cap(s), Oral, qAM, # 90 cap(s), 1 Refill(s), Pharmacy: [facility] STORE [id number], 154.3, cm, 04/16/22 16:12:00 EST, Height, kg, 04/16/22 16:12:00 EST, Dosing Weight Start Date: 05/21/22 Status: Ordered Start: 10-27-2013 CELEBREX 100 M G CAPS 1-2 capsules weekly as needed CELECOXIB [id number] Vidya Babin MANAGER MERCHANDISING Comment on above: Take 100 mg by [...] DAY, # 15 gram(s), 1 Refill(s), Pharmacy: [facility] [id number], 155, cm, 11/04/20 8:28:00 EDT, Height, 81.2, kg, 11/11/20 8:26:00 EDT, Dosing Weight Start Date: 01/20/21 Status: Ordered Start: 07-30-2020 Temovate 0.05% topical ointment Apply 1 angelica, Topical, BID, # 15 gram(s), 0 Refill(s), [id number] Ointment, 155, cm, 07/23/20 8:15:00 EDT, [...] qHS, # 90 tab(s), 1 Refill(s), Pharmacy: [place] [id number], 155, cm, 11/04/20 8:28:00 EDT, Height, kg, [...] discomfort, # 39 tab(s), 0 Refill(s), Pharmacy: [facility]/pharmacy #4605, 155, cm, 12/15/23 10:32:00 EST, [...] TID, # 5 gram(s), 0 Refill(s), Pharmacy: [facility]/pharmacy #4605, Cream, 155, cm, 07/23/20 8:15:00 EDT, Height, 85.2, kg, 07/23/20 8:15:00 EDT, Dosing Weight Start Date: 07/23/20 Status: Ordered lisinopril 20 mg oral tablet (14 sources) Angiotensin Converting Enzyme Inhibitor Start: 03-16-2023 take 1 tablet by mouth once daily in the morning lisinopril 20 mg oral tablet 1 tab(s), Oral, qAM, # 90 tab(s), 1 Refill(s), Pharmacy: [facility]/pharmacy #[id number], 155.2, cm, 03/16/23 9:59:00 EST, Height, kg, 03/16/23 9:59:00 EST, Dosing Weight Start Date: 03/16/23 Status: Ordered Start: 10-15-2022 take 1 tablet by charles th once daily in the morning lisinopril 20 mg oral tablet 1 tab(s), Oral, qAM, # 90 tab(s), 1 Refill(s), Pharmacy: [facility]/pharmacy #[id number], 156.5, cm, 09/11/22 11:11:00 EDT, Height, kg, 09/11/22 11:11:00 EDT, Dosing Weight Start Date: 10/15/22 Status: Ordered Start: 04-13-2022 take 1 tablet by charles th once daily in the morning lisinopril 20 mg oral tablet 1 tab(s), Oral, qAM, # 90 tab(s), 1 Refill(s), Pharmacy: [facility]/pharmacy #[id number], 154.3, cm, 03/17/22 9:37:00 EST, Height, kg, 03/17/22 9:37:00 EST, Dosing Weight Start Date: 04/13/22 Status: Ordered Start: 09-02-2021 take 1 tablet by charles th once daily lisinopril 20 mg oral tablet 1 tab(s), Oral, qDay, # 90 tab(s), 1 Refill(s), Pharmacy: [facility] STORE [id number], 155, cm, 05/05/21 8:51:00 EDT, Height, kg, 05/05/21 8:51:00 EDT, Dosing Weight Start Date: 09/02/21 Status: Ordered Start: 10-22-2020 take 1 tablet by charles th once daily lisinopril 20 mg oral tablet See Instructions, TAKE 1 TABLET BY MOUTH EVERY DAY, # 90 tab(s), 1 Refill(s), Pharmacy: [facility] STORE [id number], 155, cm, 07/23/20 8:15:00 EDT, Height, kg, 07/30/20 8:40:00 EDT, Dosing Weight Start Date: 10/22/20 Status: Ordered losartan potassium 50 mg oral tablet (20 sources) Angiotensin 2 Receptor Aniyah Start: 10-27-2013 End: 07-02-2024 take 1 tablet by mouth once daily 24 hr memantine hydrochloride 28 mg extended release oral capsule (20 sources) K-iaytry-B-aspartate Receptor Antagonist Start: 07-24-2024 take 1 capsule [...] qAM, # 90 tab(s), 1 Refill(s), Pharmacy: [facility]/pharmacy #[id number], 156.5, cm, 09/11/22 11:11:00 EDT, Height, kg, 09/11/22 11:11:00 EDT, Dosing Weight Start Date: 01/29/23 Status: Ordered Start: 05-25-2022 take 1 tablet by charles th once daily in the morning memantine 5 mg oral tablet 1 tab(s), Oral, qAM, # 90 tab(s), 1 Refill(s), Pharmacy: [facility]/pharmacy #[id number], 154.3, cm, 04/16/22 16:12:00 EST, Height, kg, 04/16/22 16:12:00 EST, Dosing Weight Start Date: 05/25/22 Status: Ordered Start: 07-14-2021 take 1 tablet by [facility] once daily memantine 5 mg oral tablet 1 tab(s), Oral, qDay, # 90 tab(s), 1 Refill(s), Pharmacy: [facility] STORE [id number], 155, cm, 05/05/21 8:51:00 EDT, Height, kg, 05/05/21 8:51:00 EDT, Dosing Weight Start Date: 07/14/21 Status: Ordered Start: 04-15-2021 take 1 tablet by [facility] once daily memantine 5 mg oral tablet 1 tab(s), Oral, qDay, # 90 tab(s), 0 Refill(s), Pharmacy: [facility] STORE [id number], 155, cm, 11/04/20 8:28:00 EDT, Height, kg, 11/11/20 8:26:00 EDT, Dosing Weight Start Date: 04/15/21 Status: Ordered Start: 10-17-2020 take 1 tablet by [facility] once daily memantine 5 mg oral tablet See Instructions, TAKE 1 TABLET BY MOUTH EVERY DAY, # 90 tab(s), 0 Refill(s), Pharmacy: [facility] STORE [id number], 155, cm, 07/23/20 8:15:00 EDT, Height, kg, 07/30/20 8:40:00 EDT, Dosing Weight Start Date: 10/17/20 Status: Ordered Multivitamin preparation (17 sources) Start: 03-17-2022 take 1 tablet by mouth once daily Multivitamin Dose = 1 tab(s), Oral, Daily, 0 Refill(s) Start Date: 03/17/22 Status: Ordered Repeat number: 1 Start: 03-17-2022 take 1 tablet by [facility] once daily Multivitamin Dose = 1 tab(s), Oral, Daily, 0 Refill(s) Start Date: 03/17/22 Status: Ordered Kznmntyjogbn-Du-Dqvk-Mineral s (Multiple Vitamins For Women) 1 EACH tablet (12 sources) Start: 04-20-2017 take 1 tablet by mouth once daily Start: 04-20-2017 take 1 tablet by charles th once daily Yooqojetbgeq-Nj-Totf-Minerals (Multiple Vitamins For Women) 1 EACH tablet Active 1 NMA PO DAILY April 20, 2017 12:00am mupirocin 0.02 mg/mg topical ointment (2 sources) RNA Synthetase Inhibitor Antibacterial Start: 06-19-2022 mupirocin 2% top ical ointment Apply 1 nagelica, Topical, BID, Bilateral intranasal application twice daily x 5 days pre-surgery., Apply to: nostril, each, # 22 gram(s), 0 Refill(s), Pharmacy: [facility]/pharmacy #[id number], Ointment, 154.3, cm, 05/28/22 7:35:00 EDT, Height, 77 Start Date: 06/19/22 Status: Ordered nystatin [id number] unt/ml topical cream (8 sources) Polyene Antifungal Start: 07-24-2024 Start: 09-11-2022 End: 11-10-2022 nystatin 100,000 units/g top ical cream Apply 1 angelica, Topical, BID, PRN Rash, Apply to the affected area twice daily until healing complete., # 30 gram(s), 1 Refill(s), Pharmacy: [facility]/pharmacy #[id number], Cream, 156.5, cm, 09/11/22 11:11:00 EDT, [...] Date: 01/24/24 Status: Ordered polyethylene glycol 3350 88166 mg powder for oral solution (8 sources) [...] day(s), # 6 tab(s), 0 Refill(s), Pharmacy: [facility]/pharmacy #[id number], 155, cm, 12/15/23 10:32:00 EST, [...] TABS 1 tablet daily CALCIUM CARB-CHOLECALCIFEROL TABS [id number] Vidya Babin MANAGER MERCHANDISING calcium carbonate 1500 mg oral tablet (12 sources) Start: 023 End: 024 calcium (as carbonate) 600 mg oral tablet Dose : 600 mg = 1 tab(s), Oral, qDay, # 90 tab(s), 3 Refill(s), Pharmacy: [facility]/pharmacy #4605, 156.5, cm, 09/11/22 11:11:00 EDT, [...] qAM, # 90 tab(s), 1 Refill(s), Pharmacy: [place] [id number], 154.5, cm, 11/18/21 13:32:00 EDT, Height, kg, [...] MULTIVITAMINS CAPS 1 capsule daily MULTIPLE VITAMIN [id number] Jane Troy multivitamin tablet (2 sources) take [...] Auto (Unsp spec) [#/Vol] 2.13 10*3/uL 0.83-4.51 [facility] Absolute neutrophil countOrd ered By: Jairon Medel on 10-16-2024 Neutrophils (Bld) [#/Vol] 4.1 10*3/uL 2.0-7.7 [facility] Anion gap in Serum or Plasma Ordered By: Jairon Medel on 10-16-2024 Anion gap [Moles/Vol] 13 mmol/L 5-15 [facility] Automated lymphocyte count a s percentage of total leukocytesOrdered By: Jairon Medel on 10-16-2024 Lymphocytes/100 WBC Auto (Unsp spec) 29.5 % 19-41 [facility] BUN/creatinine ratioOrdered By: Jairon Medel on 10-16-2024 Urea nitrogen/Creatinine [Mass ratio] 22.8 mg/mg High 10-20 [facility] Basophil percentageOrdered B y: Jairon Medel on 10-16-2024 Basophils/100 WBC (Bld) 0.8 % 0-1 [facility] Carbon dioxide, total [Moles /volume] in Central venous bloodOrdered By: Jairon Medel on 10-16-2024 CO2 [Moles/Vol] 22.8 mmol/L 21.0-32.0 [facility] Chloride assayOrdered By: Pooja Medel on 10-16-2024 Chloride [Moles/Vol] 104 mmol/L 98-108 [facility] Eosinophil percentageOrdered By: Jairon Medel on 10-16-2024 Eosinophils/100 WBC (Bld) 3.2 % 0-5 [facility] Erythrocyte distribution wid th ratioOrdered By: Jairon Medel on 10-16-2024 Erythrocyte distribution width (RBC) [Ratio] 13.2 % 11.6-14.6 [facility] Erythrocyte distribution wid th standard deviationOrdered By: Jairon Medel on 10-16-2024 Erythrocyte distribution width (RBC) [Ratio] 44.1 fl High 35.1-43.9 [facility] Glomerular filtration rate ( GFR) estimation/1.73 sq m using serum, plasma, or whole bOrdered By: Carrillonederlandmakenzie Medel on 10-16-2024 GFR/1.73 sq M.predicted among non-blacks MDRD (S/P/Bld) [Vol rate/Area] 51 mL/min/{1.73_m2} Low >60 [facility] Comment on above: mL/min/1.73m2 CKD-EP I Creatinine Equation (2020) Hematocrit Auto (Bld) [Volum e fraction]Ordered By: Jairon Medel on 10-16-2024 Hematocrit (Bld) [Volume fraction] 32.8 % Low 37-47 [facility] Hemoglobin measurementOrdere d By: Jairon Medel on 10-16-2024 Hemoglobin (Bld) [Mass/Vol] 10.0 g/dL Low 12.0-15.0 [facility] Immature granulocytes/100 WB C Auto (Bld)Ordered By: Jairon Medel on 10-16-2024 Immature granulocytes/100 WBC (Bld) 0.300 % 0.0-0.9 [facility] Comment on above: IG% - Immature Granu locytes (promyelocytes, myelocytes and metamyelocytes) > 1% indicates that a LEFT SHIFT is Present. MCV (mean corpuscular volume ) determinationOrdered By: Jairon Medel on 10-16-2024 MCV (RBC) [Entitic vol] 91.4 fL 81-99 [facility] Mean corpuscular hemoglobin (MCH) determinationOrdered By: Jairon Medel 10-16-2024 MCH (RBC) [Entitic mass] 27.9 pg 27.0-32.0 [facility] Mean corpuscular hemoglobin concentration (MCHC) determinationOrdered By: Jairon Medel on 10-16-2024 MCHC (RBC) [Mass/Vol] 30.5 g/dL Low 32-36 [facility] Mean platelet volume determi nationOrdered By: Jairon Medel on 10-16-2024 Platelet mean volume (Bld) [Entitic vol] 10.6 fL 6.2-12.0 [facility] Monocyte percentageOrdered B y: Jairon Medel on 10-16-2024 Monocytes/100 WBC (Bld) 9.4 % 0-10 [facility] Neutrophil percentageOrdered By: Jairon Medel on 10-16-2024 Neutrophils/100 WBC (Bld) 56.8 % 47-70 [facility] Nucleated red blood cell per centageOrdered By: Jairon Medel on 10-16-2024 Nucleated RBC/100 WBC (Bld) [Ratio] 0 % 0-5 [facility] Platelet countOrdered By: Pooja Medel on 10-16-2024 Platelets (Bld) [#/Vol] 273 10*3/uL 150-450 [facility] Potassium measurement (mass/ volume)Ordered By: Godliemakenzie Torojenifersophia on 10-16-2024 Potassium (Unsp spec) [Mass/Vol] 4.2 mmol/L 3.3-5.1 [facility] RBC Auto (Bld) [#/Vol]Ordere d By: Jairon Medel on 10-16-2024 RBC (Bld) [#/Vol] 3.59 10*6/uL Low 4.2-5.4 [facility] Serum creatinine measurement (mass/volume)Ordered By: Jairon Cortezjenifersophia on 10-16-2024 Creatinine [Mass/Vol] 1.07 mg/dL 0.70-1.20 [facility] Serum glucose measurement (m ass/volume)Ordered By: Jairon Cortezjenifersophia on 10-16-2024 Glucose [Mass/Vol] 76 mg/dL 70-99 [facility] Serum or plasma calcium krissy urement (mass/volume)Ordered By: Poojasreekanthmahadmakenzie Torojenifersophia on 10-16-2024 Calcium [Mass/Vol] 9.7 mg/dL 7.6-11.0 [facility] Serum or plasma urea nitroge n measurement (mass/volume)Ordered By: Jairon Torojenifersophia on 10-16-2024 Urea nitrogen [Mass/Vol] 24 mg/dL High 4-19 [facility] Sodium levelOrdered By: Carrillo feliciano Cortezjenifersophia on 10-16-2024 Sodium [Moles/Vol] 139 mmol/L 133-145 [facility] White blood cell (WBC) count Ordered By: Poojasreekanthmahadmakenzie Torojenifersophia on 10-16-2024 WBC (Bld) [#/Vol] 7.2 10*3/uL 4.4-11.0 [facility] Absolute lymphocyte countOrd ered By: Carrillomahadmakenzie Torojenifersophia on 09-18-2024 Lymphocytes Auto (Unsp spec) [#/Vol] 1.93 10*3/uL 0.83-4.51 [facility] Absolute neutrophil countOrd ered By: Poojasreekanthbraden Cortezjenifersophia on 09-18-2024 Neutrophils (Bld) [#/Vol] 3.1 10*3/uL 2.0-7.7 [facility] Anion gap in Serum or Plasma Ordered By: Jairon Torojenifersophia on 09-18-2024 Anion gap [Moles/Vol] 11 mmol/L 5-15 [facility] Automated lymphocyte count a s percentage of total leukocytesOrdered By: Jairon Torojenifersophia on 09-18-2024 Lymphocytes/100 WBC Auto (Unsp spec) 34.0 % 19-41 [facility] BUN/creatinine ratioOrdered By: Poojasreekanthmahadamkenzie Torojenifersophia on 09-18-2024 Urea nitrogen/Creatinine [Mass ratio] 23.1 mg/mg High 10-20 [facility] Basophil percentageOrdered B y: Jairon Torojenifersophia on 09-18-2024 Basophils/100 WBC (Bld) 0.7 % 0-1 [facility] Carbon dioxide, total [Moles /volume] in Central venous bloodOrdered By: Jairon Medel on 09-18-2024 CO2 [Moles/Vol] 23.8 mmol/L 21.0-32.0 [facility] Chloride assayOrdered By: Pooja Medel on 09-18-2024 Chloride [Moles/Vol] 106 mmol/L 98-108 [facility] Eosinophil percentageOrdered By: Jairon Medel on 09-18-2024 Eosinophils/100 WBC (Bld) 2.1 % 0-5 [facility] Erythrocyte distribution wid th ratioOrdered By: sreekanthnederlandmakenzie Medel on 09-18-2024 Erythrocyte distribution width (RBC) [Ratio] 13.6 % 11.6-14.6 [facility] Erythrocyte distribution wid th standard deviationOrdered By: sreekanthnederlandmakenzie Medel on 09-18-2024 Erythrocyte distribution width (RBC) [Ratio] 45.4 fl High 35.1-43.9 [facility] Glomerular filtration rate ( GFR) estimation/1.73 sq m using serum, plasma, or whole bOrdered By: Jairon Medel on 09-18-2024 GFR/1.73 sq M.predicted among non-blacks MDRD (S/P/Bld) [Vol rate/Area] 59 mL/min/{1.73_m2} Low >60 [facility] Comment on above: mL/min/1.73m2 CKD-EP I Creatinine Equation (2020) Hematocrit Auto (Bld) [Volum e fraction]Ordered By: margarette Medel on 09-18-2024 Hematocrit (Bld) [Volume fraction] 31.9 % Low 37-47 [facility] Hemoglobin measurementOrdere d By: Jairon Medel on 09-18-2024 Hemoglobin (Bld) [Mass/Vol] 9.9 g/dL Low 12.0-15.0 [facility] Immature granulocytes/100 WB C Auto (Bld)Ordered By: Jairon Medel on 09-18-2024 Immature granulocytes/100 WBC (Bld) 0.400 % 0.0-0.9 [facility] Comment on above: IG% - Immature Granu locytes (promyelocytes, myelocytes and metamyelocytes) > 1% indicates that a LEFT SHIFT is Present. MCV (mean corpuscular volume ) determinationOrdered By: Jairon Medel on 09-18-2024 MCV (RBC) [Entitic vol] 91.7 fL 81-99 [facility] Mean corpuscular hemoglobin (MCH) determinationOrdered By: Jairon Torojenifersophia on 09-18-2024 MCH (RBC) [Entitic mass] 28.4 pg 27.0-32.0 [facility] Mean corpuscular hemoglobin concentration (MCHC) determinationOrdered By: Jairon Torojenifersophia on 09-18-2024 MCHC (RBC) [Mass/Vol] 31.0 g/dL Low 32-36 [facility] Mean platelet volume determi nationOrdered By: Jairon Torojenifersophia on 09-18-2024 Platelet mean volume (Bld) [Entitic vol] 10.9 fL 6.2-12.0 [facility] Monocyte percentageOrdered B y: Jairon Torojenifersophia on 09-18-2024 Monocytes/100 WBC (Bld) 7.9 % 0-10 [facility] Neutrophil percentageOrdered By: sreekanthnederlandmakenzie Torojenifersophia on 09-18-2024 Neutrophils/100 WBC (Bld) 54.9 % 47-70 [facility] Nucleated red blood cell per centageOrdered By: Poojasreekanthmahadmakenzie Torojenifersophia on 09-18-2024 Nucleated RBC/100 WBC (Bld) [Ratio] 0 % 0-5 [facility] Platelet countOrdered By: Pooja meghnamakenzie Torojenifersophia on 09-18-2024 Platelets (Bld) [#/Vol] 247 10*3/uL 150-450 [facility] Potassium measurement (mass/ volume)Ordered By: Jairon Torojenifersophia on 09-18-2024 Potassium (Unsp spec) [Mass/Vol] 4.1 mmol/L 3.3-5.1 [facility] RBC Auto (Bld) [#/Vol]Ordere d By: Jairon Medel on 09-18-2024 RBC (Bld) [#/Vol] 3.48 10*6/uL Low 4.2-5.4 [facility] Serum creatinine measurement (mass/volume)Ordered By: Jairon Medel on 09-18-2024 Creatinine [Mass/Vol] 0.94 mg/dL 0.70-1.20 [facility] Serum glucose measurement (m ass/volume)Ordered By: Jairon Medel on 09-18-2024 Glucose [Mass/Vol] 86 mg/dL 70-99 [facility] Serum or plasma calcium krissy urement (mass/volume)Ordered By: Jairon Medel on 09-18-2024 Calcium [Mass/Vol] 9.9 mg/dL 7.6-11.0 [facility] Serum or plasma urea nitroge n measurement (mass/volume)Ordered By: Jairon Medel on 09-18-2024 Urea nitrogen [Mass/Vol] 22 mg/dL High 4-19 [facility] Sodium levelOrdered By: Carrillo Medel on 09-18-2024 Sodium [Moles/Vol] 141 mmol/L 133-145 [facility] White blood cell (WBC) count Ordered By: Jairon Medel on 09-18-2024 WBC (Bld) [#/Vol] 5.7 10*3/uL 4.4-11.0 [facility] Bilirubin directOrdered By: Jairon Medel on 08-28-2024 Bilirubin.direct [Mass/Vol] 0.12 mg/dL 0.00-0.30 [facility] Bilirubin, totalOrdered By: Jairon Medel on 08-28-2024 Bilirubin [Mass/Vol] 0.23 mg/dL 0.00-1.30 [facility] Calculated very low density lipoprotein (VLDL) cholesterol measurementOrdered By: Jairon Medel on 08-28-2024 Calculated very low density lipoprotein (VLDL) cholesterol measurement 23 mg/dL 5-40 [facility] LDL calc ser/plasOrdered By: Jairon Medel on 08-28-2024 Cholesterol in LDL [Mass/Vol] 46 mg/dL [facility] Comment on above: Pimjjgchfl=090-174 m g/dL & Higher Sznz=246 mg/dL or greater Laboratory - Chemistry and C hemistry - challengeOrdered By: Jairon Medel on 08-28-2024 AST [Catalytic activity/Vol] 15 U/L <32 [facility] Screening total cholesterol/ high density lipoprotein (HDL) cholesterol ratioOrdered By: Jairon Medel on 08-28-2024 Cholesterol.total/Luisa sterol in HDL [Mass ratio] 2.33 {ratio} [facility] Serum globulin measurementOr dered By: Jairon Medel on 08-28-2024 Globulin (S) [Mass/Vol] 2.2 g/dL 2.2-4.2 [facility] Serum or plasma alanine crane otransferase (ALT) measurementOrdered By: Jairon Medel on 08-28-2024 ALT [Catalytic activity/Vol] 9 U/L <35 [facility] Serum or plasma albumin krissy urement (mass/volume)Ordered By: Jairon Medel on 08-28-2024 Albumin [Mass/Vol] 3.7 g/dL 3.4-4.8 [facility] Serum or plasma alkaline luis sphatase measurementOrdered By: Jairon Medel on 08-28-2024 ALP [Catalytic activity/Vol] 73 U/L 35-104 [facility] Serum or plasma cholesterol in HDL measurement (mass/volume)Ordered By: Jairon Medel on 08-28-2024 Cholesterol in HDL [Mass/Vol] 52 mg/dL >40 [facility] Comment on above: National Cholesterol Education Program (NCEP) guidelines:<40 mg/dL: Low HDL-cholesterol (major risk factor for CHD)>= 60 mg/dL: High HDL-cholesterol (negative risk factor for CHD)HDL-cholesterol is affected by a number of factors, e.g. smoking, exercise, hormones, sex and age. Serum or plasma cholesterol measurement (mass/volume)Ordered By: Jairon Medel on 08-28-2024 Cholesterol [Mass/Vol] 121 mg/dL <201 [facility] Comment on above: Cholesterol level, D esirable <200 mg/dLBorderline high cholesterol 200-239 mg/dLHigh cholesterol >=240 mg/dLRecommendations of the NCEP Adult Treatment Panel for the following risk-cutoff thresholds for the [place] population. Serum or plasma valproate me asurement (mass/volume)Ordered By: Goldiemakenzie Torojenifersophia on 08-28-2024 Valproate [Mass/Vol] 14 ug/mL Low 50-100 [facility] Comment on above: Valproic Acid concen trations >100 ug/mL are potentially toxic. Total proteinOrdered By: Masoudsophia rosales Cortezjenifersophia on 08-28-2024 Protein [Mass/Vol] 5.9 g/dL 5.9-8.4 [facility] Triglycerides measurementOrd ered By: Jairon Cortezjenifersophia on 08-28-2024 Triglyceride [Mass/Vol] 115 mg/dL <199 [facility] Comment on above: The drugs N-Acetylcy steine and Metamizole may falsely depress this assay. Normal range: <150 mg/dLBorderline High: 150-199 mg/dLHigh: 200-499 mg/dLVery High: >500 mg/dL Absolute lymphocyte countOrd ered By: Carrillomahadmakenzie Torojenifersophia on 08-21-2024 Lymphocytes Auto (Unsp spec) [#/Vol] 1.69 10*3/uL 0.83-4.51 [facility] Absolute neutrophil countOrd ered By: Poojasreekanthbraden Cortezdorcas on 08-21-2024 Neutrophils (Bld) [#/Vol] 4.3 10*3/uL 2.0-7.7 [facility] Anion gap in Serum or Plasma Ordered By: Jairon Torojenifersophia on 08-21-2024 Anion gap [Moles/Vol] 10 mmol/L 5-15 [facility] Automated lymphocyte count a s percentage of total leukocytesOrdered By: Poojasreekanthmahadmakenzie Torojenifersophia on 08-21-2024 Lymphocytes/100 WBC Auto (Unsp spec) 24.9 % 19-41 [facility] BUN/creatinine ratioOrdered By: Poojasreekanthmahadmakenzie Torojenifersophia on 08-21-2024 Urea nitrogen/Creatinine [Mass ratio] 21.2 mg/mg High 10-20 [facility] Basophil percentageOrdered B y: Poojasreekanthmahadmakenzie Torojenifersophia on 08-21-2024 Basophils/100 WBC (Bld) 0.7 % 0-1 [facility] Carbon dioxide, total [Moles /volume] in Central venous bloodOrdered By: Jairon Medel on 08-21-2024 CO2 [Moles/Vol] 24.4 mmol/L 21.0-32.0 [facility] Chloride assayOrdered By: Pooja Medel on 08-21-2024 Chloride [Moles/Vol] 108 mmol/L 98-108 [facility] Eosinophil percentageOrdered By: Jairon Medel 08-21-2024 Eosinophils/100 WBC (Bld) 1.9 % 0-5 [facility] Erythrocyte distribution wid th ratioOrdered By: sreekanthnederlandmakenzie Medel on 08-21-2024 Erythrocyte distribution width (RBC) [Ratio] 14.2 % 11.6-14.6 [facility] Erythrocyte distribution wid th standard deviationOrdered By: sreekanthnederlandmakenzie Medel on 08-21-2024 Erythrocyte distribution width (RBC) [Ratio] 47.2 fl High 35.1-43.9 [facility] Glomerular filtration rate ( GFR) estimation/1.73 sq m using serum, plasma, or whole bOrdered By: Jairon Medel on 08-21-2024 GFR/1.73 sq M.predicted among non-blacks MDRD (S/P/Bld) [Vol rate/Area] 67 mL/min/{1.73_m2} >60 [facility] Comment on above: mL/min/1.73m2 CKD-EP I Creatinine Equation (2020) Hematocrit Auto (Bld) [Volum e fraction]Ordered By: Jairon Medel 08-21-2024 Hematocrit (Bld) [Volume fraction] 31.9 % Low 37-47 [facility] Hemoglobin measurementOrdere d By: Jairon Medel 08-21-2024 Hemoglobin (Bld) [Mass/Vol] 10.2 g/dL Low 12.0-15.0 [facility] Immature granulocytes/100 WB C Auto (Bld)Ordered By: Jairon Medel on 08-21-2024 Immature granulocytes/100 WBC (Bld) 0.100 % 0.0-0.9 [facility] Comment on above: IG% - Immature Granu locytes (promyelocytes, myelocytes and metamyelocytes) > 1% indicates that a LEFT SHIFT is Present. MCV (mean corpuscular volume ) determinationOrdered By: Jairon Medel on 08-21-2024 MCV (RBC) [Entitic vol] 91.7 fL 81-99 [facility] Mean corpuscular hemoglobin (MCH) determinationOrdered By: Jairon Medel on 08-21-2024 MCH (RBC) [Entitic mass] 29.3 pg 27.0-32.0 [facility] Mean corpuscular hemoglobin concentration (MCHC) determinationOrdered By: Jairon Medel on 08-21-2024 MCHC (RBC) [Mass/Vol] 32.0 g/dL 32-36 [facility] Mean platelet volume determi nationOrdered By: Jairon Medel on 08-21-2024 Platelet mean volume (Bld) [Entitic vol] 10.6 fL 6.2-12.0 [facility] Monocyte percentageOrdered B y: Jairon Medel on 08-21-2024 Monocytes/100 WBC (Bld) 9.0 % 0-10 [facility] Neutrophil percentageOrdered By: Piedmont Newnanmakenzie Medel on 08-21-2024 Neutrophils/100 WBC (Bld) 63.4 % 47-70 [facility] Nucleated red blood cell per centageOrdered By: Jairon Medel on 08-21-2024 Nucleated RBC/100 WBC (Bld) [Ratio] 0 % 0-5 [facility] Platelet countOrdered By: Pooja sreekanthbraden Medel on 08-21-2024 Platelets (Bld) [#/Vol] 232 10*3/uL 150-450 [facility] Potassium measurement (mass/ volume)Ordered By: Jairon Medel on 08-21-2024 Potassium (Unsp spec) [Mass/Vol] 4.4 mmol/L 3.3-5.1 [facility] RBC Auto (Bld) [#/Vol]Ordere d By: Jairon Medel on 08-21-2024 RBC (Bld) [#/Vol] 3.48 10*6/uL Low 4.2-5.4 [facility] Serum creatinine measurement (mass/volume)Ordered By: Jairon Medel on 08-21-2024 Creatinine [Mass/Vol] 0.85 mg/dL 0.70-1.20 [facility] Serum glucose measurement (m ass/volume)Ordered By: Jairon Medel on 08-21-2024 Glucose [Mass/Vol] 95 mg/dL 70-99 [facility] Serum or plasma calcium krissy urement (mass/volume)Ordered By: Jairon Medel on 08-21-2024 Calcium [Mass/Vol] 9.4 mg/dL 7.6-11.0 [facility] Serum or plasma urea nitroge n measurement (mass/volume)Ordered By: Jairon Medel on 08-21-2024 Urea nitrogen [Mass/Vol] 18 mg/dL 4-19 [facility] Sodium levelOrdered By: Carrillo Medel on 08-21-2024 Sodium [Moles/Vol] 142 mmol/L 133-145 [facility] White blood cell (WBC) count Ordered By: Jairon Medel on 08-21-2024 WBC (Bld) [#/Vol] 6.8 10*3/uL 4.4-11.0 [facility] Emergency Department Summary on 07-24-2024 Emergency Department Summary [facility] Medical Records Department [address] [place] [address] Emergency Department Summary 07/24/24 MR#: [id number] Acct: [id number] Name: CT DALTON Rep #: [id number] : 1940 83 From: Jean Claude Harry [...] PO DAILY 04/20/17 04/27/17 0 8:00 History adkiqdwgswon-Ge-junl-m inerals 1 ea PO DAILY 04/20/17 Unknown [...] range of motion. 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 Neurologically she is awake and alert. She answers questions she does have dementia and some confusion. She does follow commands. Const Vital Signs: 07/24/24 01:24 07/24/24 01:24 Temperature 98 F Temperature Source Oral Pulse Rate 53 L Respirator (more content not included)... Normal [facility] HIP, UNI W/ Pelvis 2-3 Views on 07-24-2024 HIP, UNI W/ Pelvis 2-3 Views [facility] Imaging Services [address] [place], [place] [address] HIP, UNI W/ Pelvis 2-3 Views MR#: [id number] Acct: [id number] Name: CT DALTON Rep #: [id number] : 1940 F 83 From: Lauri mason MD PCP: Dr. Jairon eMdel MD Status: REG ER Study: HIP, UNI W/ Pelvis 2-3 Views Date of Exam: Exam# [id number] Ordering Dr: Jean Claude Harry MD PROCEDURE: [...] Right hip moderate degenerative changes. Reading Location: [place] [address] CC: Dr. Jairon Medel MD; Dr. 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: Signed Normal [facility] Absolute lymphocyte countOrd ered By: Jairon Medel on 06-26-2024 Lymphocytes Auto (Unsp spec) [#/Vol] 2.05 10*3/uL 0.83-4.51 [facility] Absolute neutrophil countOrd ered By: Jairon Medel on 06-26-2024 Neutrophils (Bld) [#/Vol] 3.9 10*3/uL 2.0-7.7 [facility] Anion gap in Serum or Plasma Ordered By: Jairon Medel on 06-26-2024 Anion gap [Moles/Vol] 9 mmol/L - [facility] Automated lymphocyte count a s percentage of total leukocytesOrdered By: Jairon Medel on 06-26-2024 Lymphocytes/100 WBC Auto (Unsp spec) 30.5 % - [facility] BUN/creatinine ratioOrdered By: Jairon Medel on 06-26-2024 Urea nitrogen/Creatinine [Mass ratio] 20.9 mg/mg High 10-20 [facility] Basophil percentageOrdered B y: Carrillomahadmakenzie Torodorcas on 06-26-2024 Basophils/100 WBC (Bld) 0.4 % 0-1 [facility] Carbon dioxide, total [Moles /volume] in Central venous bloodOrdered By: Jairon Torojenifersophia on 06-26-2024 CO2 [Moles/Vol] 23.5 mmol/L 21.0-32.0 [facility] Chloride assayOrdered By: Pooja meghanmakenzie Medel on 06-26-2024 Chloride [Moles/Vol] 107 mmol/L 98-108 [facility] Eosinophil percentageOrdered By: Poojasreekanthmahadmakenzie Torojenifersophia on 06-26-2024 Eosinophils/100 WBC (Bld) 1.9 % 0-5 [facility] Erythrocyte distribution wid th ratioOrdered By: sreekanthbraden Cortezjenifersophia on 06-26-2024 Erythrocyte distribution width (RBC) [Ratio] 14.1 % 11.6-14.6 [facility] Erythrocyte distribution wid th standard deviationOrdered By: sreekanthnederlandmakenzie Torojenifersophia on 06-26-2024 Erythrocyte distribution width (RBC) [Ratio] 46.5 fl High 35.1-43.9 [facility] Glomerular filtration rate ( GFR) estimation/1.73 sq m using serum, plasma, or whole bOrdered By: Poojamargarette Torojenifersophia on 06-26-2024 GFR/1.73 sq M.predicted among non-blacks MDRD (S/P/Bld) [Vol rate/Area] 55 mL/min/{1.73_m2} Low >60 [facility] Comment on above: mL/min/1.73m2 CKD-EP I Creatinine Equation (2020) Hematocrit Auto (Bld) [Volum e fraction]Ordered By: Jairon Medel on 06-26-2024 Hematocrit (Bld) [Volume fraction] 32.7 % Low 37-47 [facility] Hemoglobin measurementOrdere d By: Jairon Medel on 06-26-2024 Hemoglobin (Bld) [Mass/Vol] 10.1 g/dL Low 12.0-15.0 [facility] Immature granulocytes/100 WB C Auto (Bld)Ordered By: Jairon Medel on 06-26-2024 Immature granulocytes/100 WBC (Bld) 0.400 % 0.0-0.9 [facility] Comment on above: IG% - Immature Granu locytes (promyelocytes, myelocytes and metamyelocytes) > 1% indicates that a LEFT SHIFT is Present. MCV (mean corpuscular volume ) determinationOrdered By: Jairon Medel on 06-26-2024 MCV (RBC) [Entitic vol] 90.3 fL 81-99 [facility] Mean corpuscular hemoglobin (MCH) determinationOrdered By: Carrillonederlandmakenzie Medel on 06-26-2024 MCH (RBC) [Entitic mass] 27.9 pg 27.0-32.0 [facility] Mean corpuscular hemoglobin concentration (MCHC) determinationOrdered By: Jairon Medel on 06-26-2024 MCHC (RBC) [Mass/Vol] 30.9 g/dL Low 32-36 [facility] Mean platelet volume determi nationOrdered By: Jairon Medel on 06-26-2024 Platelet mean volume (Bld) [Entitic vol] 10.3 fL 6.2-12.0 [facility] Monocyte percentageOrdered B y: Jairon Medel on 06-26-2024 Monocytes/100 WBC (Bld) 8.8 % 0-10 [facility] Neutrophil percentageOrdered By: Jairon Medel on 06-26-2024 Neutrophils/100 WBC (Bld) 58.0 % 47-70 [facility] Nucleated red blood cell per centageOrdered By: Jairon Medel on 06-26-2024 Nucleated RBC/100 WBC (Bld) [Ratio] 0 % 0-5 [facility] Platelet countOrdered By: Pooja Medel on 06-26-2024 Platelets (Bld) [#/Vol] 242 10*3/uL 150-450 [facility] Potassium measurement (mass/ volume)Ordered By: Jairon Medel on 06-26-2024 Potassium (Unsp spec) [Mass/Vol] 4.3 mmol/L 3.3-5.1 [facility] RBC Auto (Bld) [#/Vol]Ordere d By: Goldiemakenzie Torojenifersophia on 06-26-2024 RBC (Bld) [#/Vol] 3.62 10*6/uL Low 4.2-5.4 [facility] Serum creatinine measurement (mass/volume)Ordered By: Jairon Medel on 06-26-2024 Creatinine [Mass/Vol] 1.01 mg/dL 0.70-1.20 [facility] Serum glucose measurement (m ass/volume)Ordered By: Jairon Medel on 06-26-2024 Glucose [Mass/Vol] 89 mg/dL 70-99 [facility] Serum or plasma calcium krissy urement (mass/volume)Ordered By: Jairon Medel on 06-26-2024 Calcium [Mass/Vol] 9.6 mg/dL 7.6-11.0 [facility] Serum or plasma urea nitroge n measurement (mass/volume)Ordered By: Jairon Medel on 06-26-2024 Urea nitrogen [Mass/Vol] 21 mg/dL High 4-19 [facility] Sodium levelOrdered By: Carrillo feliciano Gianfranco on 06-26-2024 Sodium [Moles/Vol] 140 mmol/L 133-145 [facility] White blood cell (WBC) count Ordered By: aJiron Medel on 06-26-2024 WBC (Bld) [#/Vol] 6.7 10*3/uL 4.4-11.0 [facility] Absolute lymphocyte countOrd ered By: Jairon Medel on 05-29-2024 Lymphocytes Auto (Unsp spec) [#/Vol] 2.09 10*3/uL 0.83-4.51 [facility] Absolute neutrophil countOrd ered By: Jairon Medel on 05-29-2024 Neutrophils (Bld) [#/Vol] 3.4 10*3/uL 2.0-7.7 [facility] Anion gap in Serum or Plasma Ordered By: Jairon Medel on 05-29-2024 Anion gap [Moles/Vol] 10 mmol/L 5-15 [facility] Automated lymphocyte count a s percentage of total leukocytesOrdered By: Jairon Medel on 05-29-2024 Lymphocytes/100 WBC Auto (Unsp spec) 34.4 % - [facility] BUN/creatinine ratioOrdered By: Jairon Medel on 05-29-2024 Urea nitrogen/Creatinine [Mass ratio] 16.9 mg/mg 10-20 [facility] Basophil percentageOrdered B y: Jairon Medel on 05-29-2024 Basophils/100 WBC (Bld) 1.2 % High 0-1 [facility] Bilirubin directOrdered By: Jairon Medel on 05-29-2024 Bilirubin.direct [Mass/Vol] 0.17 mg/dL 0.00-0.30 [facility] Bilirubin, totalOrdered By: Jairon Medel on 05-29-2024 Bilirubin [Mass/Vol] 0.35 mg/dL 0.00-1.30 [facility] Carbon dioxide, total [Moles /volume] in Central venous bloodOrdered By: Jairon Medel on 05-29-2024 CO2 [Moles/Vol] 25.1 mmol/L 21.0-32.0 [facility] Chloride assayOrdered By: Pooja Medel on 05-29-2024 Chloride [Moles/Vol] 105 mmol/L 98-108 [facility] Eosinophil percentageOrdered By: Jairon Medel on 05-29-2024 Eosinophils/100 WBC (Bld) 1.6 % 0-5 [facility] Erythrocyte distribution wid th (RBC) [Ratio]Ordered By: Jairon Medel on 05-29-2024 Erythrocyte distribution width (RBC) [Entitic vol] 41.0 fL 35.1-43.9 [facility] Erythrocyte distribution wid th ratioOrdered By: Jairon Medel on 05-29-2024 Erythrocyte distribution width (RBC) [Ratio] 13.1 % 11.6-14.6 [facility] Erythrocyte distribution wid th standard deviationOrdered By: Jairon Medel on 05-29-2024 Erythrocyte distribution width (RBC) [Ratio] 41.0 fl 35.1-43.9 [facility] GFR/1.73 sq M.predicted hua g non-blacks MDRD (S/P/Bld) [Vol rate/Area]Ordered By: Jairon Medel on 05-29-2024 Estimated GFR (MDRD) Non-Af Amer 50 Low >60 [facility] Comment on above: mL/min/1.73m2 CKD-EP I Creatinine Equation (2020) Glomerular filtration rate ( GFR) estimation/1.73 sq m using serum, plasma, or whole bOrdered By: Jairon Medel on 05-29-2024 GFR/1.73 sq M.predicted among non-blacks MDRD (S/P/Bld) [Vol rate/Area] 50 mL/min/{1.73_m2} Low >60 [facility] Comment on above: mL/min/1.73m2 CKD-EP I Creatinine Equation (2020) Hematocrit Auto (Bld) [Volum e fraction]Ordered By: Jairon Medel on 05-29-2024 Hematocrit (Bld) [Volume fraction] 33.4 % Low 37-47 [facility] Hemoglobin measurementOrdere d By: Jairon Medel on 05-29-2024 Hemoglobin (Bld) [Mass/Vol] 10.9 g/dL Low 12.0-15.0 [facility] Immature granulocytes/100 WB C Auto (Bld)Ordered By: Jairon Medel on 05-29-2024 Immature granulocytes/100 WBC (Bld) 0.200 % 0.0-0.9 [facility] Comment on above: IG% - Immature Granu locytes (promyelocytes, myelocytes and metamyelocytes) > 1% indicates that a LEFT SHIFT is Present. Laboratory - Chemistry and C hemistry - challengeOrdered By: Jairon Medel on 05-29-2024 AST [Catalytic activity/Vol] 20 U/L <32 [facility] Lymphocytes Auto (Unsp spec) [#/Vol]Ordered By: Jairon Medel on 05-29-2024 Lymphocytes (Bld) [#/Vol] 2.09 10*3/uL 0.83-4.51 [facility] Lymphocytes/100 WBC Auto (Un sp spec)Ordered By: Jairon Medel on 05-29-2024 Lymphocytes/100 WBC (Bld) 34.4 % 19-41 [facility] MCV (mean corpuscular volume ) determinationOrdered By: Jairon Medel on 05-29-2024 MCV (RBC) [Entitic vol] 85.9 fL 81-99 [facility] Mean corpuscular hemoglobin (MCH) determinationOrdered By: Jairon Medel on 05-29-2024 MCH (RBC) [Entitic mass] 28.0 pg 27.0-32.0 [facility] Mean corpuscular hemoglobin concentration (MCHC) determinationOrdered By: Jairon Medel on 05-29-2024 MCHC (RBC) [Mass/Vol] 32.6 g/dL 32-36 [facility] Mean platelet volume determi nationOrdered By: Jairon Medel on 05-29-2024 Platelet mean volume (Bld) [Entitic vol] 10.3 fL 6.2-12.0 [facility] Monocyte percentageOrdered B y: Jairon Medel on 05-29-2024 Monocytes/100 WBC (Bld) 7.6 % 0-10 [facility] Neutrophil percentageOrdered By: Jairon Medel on 05-29-2024 Neutrophils/100 WBC (Bld) 55.0 % 47-70 [facility] Nucleated red blood cell per centageOrdered By: Jairon Medel on 05-29-2024 Nucleated RBC/100 WBC (Bld) [Ratio] 0 % 0-5 [facility] Platelet countOrdered By: Pooja Medel on 05-29-2024 Platelets (Bld) [#/Vol] 247 10*3/uL 150-450 [facility] Potassium (Unsp spec) [Mass/ Vol]Ordered By: Jairon Medel on 05-29-2024 Potassium [Moles/Vol] 4.3 mmol/L 3.3-5.1 [facility] Potassium measurement (mass/ volume)Ordered By: Jairon Medel on 05-29-2024 Potassium (Unsp spec) [Mass/Vol] 4.3 mmol/L 3.3-5.1 [facility] RBC Auto (Bld) [#/Vol]Ordere d By: Jairon Medel on 05-29-2024 RBC (Bld) [#/Vol] 3.89 10*6/uL Low 4.2-5.4 [facility] Serum creatinine measurement (mass/volume)Ordered By: Jairon Medel on 05-29-2024 Creatinine [Mass/Vol] 1.08 mg/dL 0.70-1.20 [facility] Serum globulin measurementOr dered By: Jairon Medel on 05-29-2024 Globulin (S) [Mass/Vol] 2.5 g/dL 2.2-4.2 [facility] Serum glucose measurement (m ass/volume)Ordered By: Jairon Medel on 05-29-2024 Glucose [Mass/Vol] 89 mg/dL 70-99 [facility] Serum or plasma alanine crane otransferase (ALT) measurementOrdered By: Jairon Medel on 05-29-2024 ALT [Catalytic activity/Vol] 11 U/L <35 [facility] Serum or plasma albumin krissy urement (mass/volume)Ordered By: Jairon Medel on 05-29-2024 Albumin [Mass/Vol] 4.0 g/dL 3.4-4.8 [facility] Serum or plasma alkaline luis sphatase measurementOrdered By: Jairon Medel 05-29-2024 ALP [Catalytic activity/Vol] 62 U/L 35-104 [facility] Serum or plasma calcium krissy urement (mass/volume)Ordered By: Jairon Medel on 05-29-2024 Calcium [Mass/Vol] 9.8 mg/dL 7.6-11.0 [facility] Serum or plasma urea nitroge n measurement (mass/volume)Ordered By: Jairon Medel on 05-29-2024 Urea nitrogen [Mass/Vol] 18 mg/dL 4-19 [facility] Sodium levelOrdered By: Carrillo Medel on 05-29-2024 Sodium [Moles/Vol] 140 mmol/L 133-145 [facility] Total proteinOrdered By: Masoud Medel on 05-29-2024 Protein [Mass/Vol] 6.4 g/dL 5.9-8.4 [facility] White blood cell (WBC) count Ordered By: Jairon Medel on 05-29-2024 WBC (Bld) [#/Vol] 6.1 10*3/uL 4.4-11.0 [facility] Absolute lymphocyte countOrd ered By: Jairon Medel on 05-24-2024 Lymphocytes Auto (Unsp spec) [#/Vol] 1.90 10*3/uL 0.83-4.51 [facility] Absolute neutrophil countOrd ered By: Jairon Cortezdorcas on 05-24-2024 Neutrophils (Bld) [#/Vol] 3.1 10*3/uL 2.0-7.7 [facility] Anion gap in Serum or Plasma Ordered By: Jairon Medel on 05-24-2024 Anion gap [Moles/Vol] 11 mmol/L 5-15 [facility] Automated lymphocyte count a s percentage of total leukocytesOrdered By: Jairon Cortezdorcas on 05-24-2024 Lymphocytes/100 WBC Auto (Unsp spec) 33.6 % 19-41 [facility] BUN/creatinine ratioOrdered By: Poojasreekanthbraden Cortezdorcas on 05-24-2024 Urea nitrogen/Creatinine [Mass ratio] 19.7 mg/mg 10-20 [facility] Basophil percentageOrdered B y: Jairon Medel on 05-24-2024 Basophils/100 WBC (Bld) 1.1 % High 0-1 [facility] Bilirubin, totalOrdered By: Poojasreekanthbraden Cortezjenifersophia on 05-24-2024 Bilirubin [Mass/Vol] 0.29 mg/dL 0.00-1.30 [facility] Carbon dioxide, total [Moles /volume] in Central venous bloodOrdered By: Jairon Cortezjenifersophia on 05-24-2024 CO2 [Moles/Vol] 23.5 mmol/L 21.0-32.0 [facility] Chloride assayOrdered By: Pooja Medel on 05-24-2024 Chloride [Moles/Vol] 106 mmol/L 98-108 [facility] Eosinophil percentageOrdered By: Jairon Medel on 05-24-2024 Eosinophils/100 WBC (Bld) 2.1 % 0-5 [facility] Erythrocyte distribution wid th (RBC) [Ratio]Ordered By: Jairon Medel on 05-24-2024 Erythrocyte distribution width (RBC) [Entitic vol] 41.3 fL 35.1-43.9 [facility] Erythrocyte distribution wid th ratioOrdered By: sreekanthnederlandmakenzie Medel on 05-24-2024 Erythrocyte distribution width (RBC) [Ratio] 13.2 % 11.6-14.6 [facility] Erythrocyte distribution wid th standard deviationOrdered By: Poojasreekanthnederlandmakenzie Medel on 05-24-2024 Erythrocyte distribution width (RBC) [Ratio] 41.3 fl 35.1-43.9 [facility] GFR/1.73 sq M.predicted hua g non-blacks MDRD (S/P/Bld) [Vol rate/Area]Ordered By: Jairon Medel on 05-24-2024 Estimated GFR (MDRD) Non-Af Amer 52 Low >60 [facility] Comment on above: mL/min/1.73m2 CKD-EP I Creatinine Equation (2020) Glomerular filtration rate ( GFR) estimation/1.73 sq m using serum, plasma, or whole bOrdered By: Jairon Medel on 05-24-2024 GFR/1.73 sq M.predicted among non-blacks MDRD (S/P/Bld) [Vol rate/Area] 52 mL/min/{1.73_m2} Low >60 [facility] Comment on above: mL/min/1.73m2 CKD-EP I Creatinine Equation (2020) Hematocrit Auto (Bld) [Volum e fraction]Ordered By: Jairon Medel on 05-24-2024 Hematocrit (Bld) [Volume fraction] 33.2 % Low 37-47 [facility] Hemoglobin A1c percentageOrd ered By: Jairon Medel on 05-24-2024 HbA1c (Bld) [Mass fraction] 5.5 % <5.7 [facility] Comment on above: Normal < 5.7 % Predi abetic 5.7 - 6.4 % Diabetic >or= 6.5 % Please note range changes. Hemoglobin measurementOrdere d By: Jairon Medel on 05-24-2024 Hemoglobin (Bld) [Mass/Vol] 10.7 g/dL Low 12.0-15.0 [facility] Immature granulocytes/100 WB C Auto (Bld)Ordered By: Jairon Medel on 05-24-2024 Immature granulocytes/100 WBC (Bld) 0.200 % 0.0-0.9 [facility] Comment on above: IG% - Immature Granu locytes (promyelocytes, myelocytes and metamyelocytes) > 1% indicates that a LEFT SHIFT is Present. Laboratory - Chemistry and C hemistry - challengeOrdered By: Jairon Medel on 05-24-2024 AST [Catalytic activity/Vol] 21 U/L <32 [facility] Lymphocytes Auto (Unsp spec) [#/Vol]Ordered By: Jairon Medel on 05-24-2024 Lymphocytes (Bld) [#/Vol] 1.90 10*3/uL 0.83-4.51 [facility] Lymphocytes/100 WBC Auto (Un sp spec)Ordered By: Jairon Medel on 05-24-2024 Lymphocytes/100 WBC (Bld) 33.6 % 19-41 [facility] MCV (mean corpuscular volume ) determinationOrdered By: Jairon Medel on 05-24-2024 MCV (RBC) [Entitic vol] 86.2 fL 81-99 [facility] Mean corpuscular hemoglobin (MCH) determinationOrdered By: Jairon Medel on 05-24-2024 MCH (RBC) [Entitic mass] 27.8 pg 27.0-32.0 [facility] Mean corpuscular hemoglobin concentration (MCHC) determinationOrdered By: Jairon Medel on 05-24-2024 MCHC (RBC) [Mass/Vol] 32.2 g/dL 32-36 [facility] Mean platelet volume determi nationOrdered By: Jairon Medel on 05-24-2024 Platelet mean volume (Bld) [Entitic vol] 10.2 fL 6.2-12.0 [facility] Monocyte percentageOrdered B y: Jairon Medel on 05-24-2024 Monocytes/100 WBC (Bld) 8.1 % 0-10 [facility] Neutrophil percentageOrdered By: Jairon Medel on 05-24-2024 Neutrophils/100 WBC (Bld) 54.9 % 47-70 [facility] Nucleated red blood cell per centageOrdered By: Jairon Medel on 05-24-2024 Nucleated RBC/100 WBC (Bld) [Ratio] 0 % 0-5 [facility] Platelet countOrdered By: Pooja Medel on 05-24-2024 Platelets (Bld) [#/Vol] 264 10*3/uL 150-450 [facility] Potassium (Unsp spec) [Mass/ Vol]Ordered By: Poojasreekanthbraden Cortezjenifersophia on 05-24-2024 Potassium [Moles/Vol] 3.9 mmol/L 3.3-5.1 [facility] Potassium measurement (mass/ volume)Ordered By: Poojasreekanthbraden Cortezdorcas on 05-24-2024 Potassium (Unsp spec) [Mass/Vol] 3.9 mmol/L 3.3-5.1 [facility] RBC Auto (Bld) [#/Vol]Ordere d By: Jairon Medel on 05-24-2024 RBC (Bld) [#/Vol] 3.85 10*6/uL Low 4.2-5.4 [facility] Serum creatinine measurement (mass/volume)Ordered By: Poojasreekanthmahadmakenzie Torojenifersophia on 05-24-2024 Creatinine [Mass/Vol] 1.05 mg/dL 0.70-1.20 [facility] Serum globulin measurementOr dered By: Jairon Cortezjenifersophia on 05-24-2024 Globulin (S) [Mass/Vol] 2.6 g/dL 2.2-4.2 [facility] Serum glucose measurement (m ass/volume)Ordered By: Poojasreekanthmahadmakenzie Torojenifersophia on 05-24-2024 Glucose [Mass/Vol] 95 mg/dL 70-99 [facility] Serum or plasma alanine crane otransferase (ALT) measurementOrdered By: Jairon Medel on 05-24-2024 ALT [Catalytic activity/Vol] 11 U/L <35 [facility] Serum or plasma albumin krissy urement (mass/volume)Ordered By: Jairon Medel on 05-24-2024 Albumin [Mass/Vol] 4.0 g/dL 3.4-4.8 [facility] Serum or plasma albumin/glob ulin mass ratioOrdered By: Jairon Medel on 05-24-2024 Albumin/Globulin [Mass ratio] 1.5 {ratio} 0.9-2.4 [facility] Serum or plasma alkaline luis sphatase measurementOrdered By: Jairon Medel on 05-24-2024 ALP [Catalytic activity/Vol] 67 U/L 35-104 [facility] Serum or plasma calcium krissy urement (mass/volume)Ordered By: Jairon Medel on 05-24-2024 Calcium [Mass/Vol] 9.9 mg/dL 7.6-11.0 [facility] Serum or plasma urea nitroge n measurement (mass/volume)Ordered By: Jairon Medel on 05-24-2024 Urea nitrogen [Mass/Vol] 21 mg/dL High 4-19 [facility] Sodium levelOrdered By: Carrillo Medel on 05-24-2024 Sodium [Moles/Vol] 141 mmol/L 133-145 [facility] Total proteinOrdered By: Masoud Medel on 05-24-2024 Protein [Mass/Vol] 6.6 g/dL 5.9-8.4 [facility] White blood cell (WBC) count Ordered By: Jairon Medel on 05-24-2024 WBC (Bld) [#/Vol] 5.7 10*3/uL 4.4-11.0 [facility] Anion gap in Serum or Plasma Ordered By: Jairon Medel on 05-15-2024 Anion gap [Moles/Vol] 10 mmol/L 5-15 [facility] BUN/creatinine ratioOrdered By: Jairon Medel on 05-15-2024 Urea nitrogen/Creatinine [Mass ratio] 15.3 mg/mg 10-20 [facility] Carbon dioxide, total [Moles /volume] in Central venous bloodOrdered By: Jairon Medel on 05-15-2024 CO2 [Moles/Vol] 25.0 mmol/L 21.0-32.0 [facility] Chloride assayOrdered By: Pooja Medel on 05-15-2024 Chloride [Moles/Vol] 108 mmol/L 98-108 [facility] GFR/1.73 sq M.predicted hua g non-blacks MDRD (S/P/Bld) [Vol rate/Area]Ordered By: Jairon Medel on 05-15-2024 Estimated GFR (MDRD) Non-Af Amer 57 Low >60 [facility] Comment on above: mL/min/1.73m2 CKD-EP I Creatinine Equation (2020) Glomerular filtration rate ( GFR) estimation/1.73 sq m using serum, plasma, or whole bOrdered By: Jairon Medel on 05-15-2024 GFR/1.73 sq M.predicted among non-blacks MDRD (S/P/Bld) [Vol rate/Area] 57 mL/min/{1.73_m2} Low >60 [facility] Comment on above: mL/min/1.73m2 CKD-EP I Creatinine Equation (2020) Potassium (Unsp spec) [Mass/ Vol]Ordered By: Jairon Medel on 05-15-2024 Potassium [Moles/Vol] 3.8 mmol/L 3.3-5.1 [facility] Potassium measurement (mass/ volume)Ordered By: Jairon Medel on 05-15-2024 Potassium (Unsp spec) [Mass/Vol] 3.8 mmol/L 3.3-5.1 [facility] Serum creatinine measurement (mass/volume)Ordered By: Jairon Medel on 05-15-2024 Creatinine [Mass/Vol] 0.98 mg/dL 0.70-1.20 [facility] Serum glucose measurement (m ass/volume)Ordered By: Jairon Medel on 05-15-2024 Glucose [Mass/Vol] 87 mg/dL 70-99 [facility] Serum or plasma calcium krissy urement (mass/volume)Ordered By: Jairon Medel on 05-15-2024 Calcium [Mass/Vol] 9.8 mg/dL 7.6-11.0 [facility] Serum or plasma urea nitroge n measurement (mass/volume)Ordered By: Jairon Cortezjenifersophia on 05-15-2024 Urea nitrogen [Mass/Vol] 15 mg/dL 4-19 [facility] Sodium levelOrdered By: Carrillo De Leonsophia on 05-15-2024 Sodium [Moles/Vol] 143 mmol/L 133-145 [facility] Absolute lymphocyte countOrd ered By: Jairon Cortezjenifersophia on 05-01-2024 Lymphocytes Auto (Unsp spec) [#/Vol] 1.90 10*3/uL 0.83-4.51 [facility] Absolute neutrophil countOrd ered By: Jairon Cortezjenifersophia on 05-01-2024 Neutrophils (Bld) [#/Vol] 2.7 10*3/uL 2.0-7.7 [facility] Anion gap in Serum or Plasma Ordered By: Jairon Cortezjenifersophia on 05-01-2024 Anion gap [Moles/Vol] 11 mmol/L 5-15 [facility] Automated lymphocyte count a s percentage of total leukocytesOrdered By: Poojasreekanthmahadmakenzie Torojenifersophia on 05-01-2024 Lymphocytes/100 WBC Auto (Unsp spec) 35.5 % 19-41 [facility] BUN/creatinine ratioOrdered By: Poojasreekanthbraden Cortezjenifersophia on 05-01-2024 Urea nitrogen/Creatinine [Mass ratio] 17.8 mg/mg 10-20 [facility] Basophil percentageOrdered B y: Jairon Cortezjenifersophia on 05-01-2024 Basophils/100 WBC (Bld) 1.5 % High 0-1 [facility] Carbon dioxide, total [Moles /volume] in Central venous bloodOrdered By: Goldiemakenzie Torojenifersophia on 05-01-2024 CO2 [Moles/Vol] 23.3 mmol/L 21.0-32.0 [facility] Chloride assayOrdered By: Pooja Medel on 05-01-2024 Chloride [Moles/Vol] 107 mmol/L 98-108 [facility] Eosinophil percentageOrdered By: Jairon Medel on 05-01-2024 Eosinophils/100 WBC (Bld) 2.2 % 0-5 [facility] Erythrocyte distribution wid th (RBC) [Ratio]Ordered By: Jairon Medel on 05-01-2024 Erythrocyte distribution width (RBC) [Entitic vol] 44.5 fL High 35.1-43.9 [facility] Erythrocyte distribution wid th ratioOrdered By: Jairon Medel on 05-01-2024 Erythrocyte distribution width (RBC) [Ratio] 13.0 % 11.6-14.6 [facility] Erythrocyte distribution wid th standard deviationOrdered By: Jairon Medel on 05-01-2024 Erythrocyte distribution width (RBC) [Ratio] 44.5 fl High 35.1-43.9 [facility] GFR/1.73 sq M.predicted hua g non-blacks MDRD (S/P/Bld) [Vol rate/Area]Ordered By: Jairon Medel on 05-01-2024 Estimated GFR (MDRD) Non-Af Amer 58 Low >60 [facility] Comment on above: mL/min/1.73m2 CKD-EP I Creatinine Equation (2020) Glomerular filtration rate ( GFR) estimation/1.73 sq m using serum, plasma, or whole bOrdered By: Jairon Medel on 05-01-2024 GFR/1.73 sq M.predicted among non-blacks MDRD (S/P/Bld) [Vol rate/Area] 58 mL/min/{1.73_m2} Low >60 [facility] Comment on above: mL/min/1.73m2 CKD-EP I Creatinine Equation (2020) Hematocrit Auto (Bld) [Volum e fraction]Ordered By: Jairon Medel on 05-01-2024 Hematocrit (Bld) [Volume fraction] 37.3 % 37-47 [facility] Hemoglobin measurementOrdere d By: Jairon Medel on 05-01-2024 Hemoglobin (Bld) [Mass/Vol] 11.3 g/dL Low 12.0-15.0 [facility] Immature granulocytes/100 WB C Auto (Bld)Ordered By: Jairon Medel on 05-01-2024 Immature granulocytes/100 WBC (Bld) 1.100 % High 0.0-0.9 [facility] Comment on above: IG% - Immature Granu locytes (promyelocytes, myelocytes and metamyelocytes) > 1% indicates that a LEFT SHIFT is Present. Lymphocytes Auto (Unsp spec) [#/Vol]Ordered By: Jairon Medel on 05-01-2024 Lymphocytes (Bld) [#/Vol] 1.90 10*3/uL 0.83-4.51 [facility] Lymphocytes/100 WBC Auto (Un sp spec)Ordered By: Jairon Medel on 05-01-2024 Lymphocytes/100 WBC (Bld) 35.5 % 19-41 [facility] MCV (mean corpuscular volume ) determinationOrdered By: Jairon Medel on 05-01-2024 MCV (RBC) [Entitic vol] 93.5 fL 81-99 [facility] Mean corpuscular hemoglobin (MCH) determinationOrdered By: margarette Medel on 05-01-2024 MCH (RBC) [Entitic mass] 28.3 pg 27.0-32.0 [facility] Mean corpuscular hemoglobin concentration (MCHC) determinationOrdered By: Jairon Medel on 05-01-2024 MCHC (RBC) [Mass/Vol] 30.3 g/dL Low 32-36 [facility] Mean platelet volume determi nationOrdered By: Jairon Medel on 05-01-2024 Platelet mean volume (Bld) [Entitic vol] 10.2 fL 6.2-12.0 [facility] Monocyte percentageOrdered B y: Jairon Medel on 05-01-2024 Monocytes/100 WBC (Bld) 9.0 % 0-10 [facility] Neutrophil percentageOrdered By: Jairon Medel on 05-01-2024 Neutrophils/100 WBC (Bld) 50.7 % 47-70 [facility] Nucleated red blood cell per centageOrdered By: Jairon Medel on 05-01-2024 Nucleated RBC/100 WBC (Bld) [Ratio] 0 % 0-5 [facility] Platelet countOrdered By: Pooja Medel on 05-01-2024 Platelets (Bld) [#/Vol] 235 10*3/uL 150-450 [facility] Potassium (Unsp spec) [Mass/ Vol]Ordered By: Jairon Medel on 05-01-2024 Potassium [Moles/Vol] 4.3 mmol/L 3.3-5.1 [facility] Potassium measurement (mass/ volume)Ordered By: Jairon Medel on 05-01-2024 Potassium (Unsp spec) [Mass/Vol] 4.3 mmol/L 3.3-5.1 [facility] RBC Auto (Bld) [#/Vol]Ordere d By: Jairon Medel on 05-01-2024 RBC (Bld) [#/Vol] 3.99 10*6/uL Low 4.2-5.4 [facility] Serum creatinine measurement (mass/volume)Ordered By: Jairon Medel on 05-01-2024 Creatinine [Mass/Vol] 0.96 mg/dL 0.70-1.20 [facility] Serum glucose measurement (m ass/volume)Ordered By: Jairon Medel on 05-01-2024 Glucose [Mass/Vol] 89 mg/dL 70-99 [facility] Serum or plasma calcium krissy urement (mass/volume)Ordered By: Jairon Medel on 05-01-2024 Calcium [Mass/Vol] 9.8 mg/dL 7.6-11.0 [facility] Serum or plasma urea nitroge n measurement (mass/volume)Ordered By: Jairon Medel on 05-01-2024 Urea nitrogen [Mass/Vol] 17 mg/dL 4-19 [facility] Sodium levelOrdered By: Carrillo Medel on 05-01-2024 Sodium [Moles/Vol] 141 mmol/L 133-145 [facility] White blood cell (WBC) count Ordered By: Jairon Medel on 05-01-2024 WBC (Bld) [#/Vol] 5.4 10*3/uL 4.4-11.0 [facility] Absolute lymphocyte countOrd ered By: Carrillomahadmakenzie Torojenifersophia on 04-03-2024 Lymphocytes Auto (Unsp spec) [#/Vol] 1.70 10*3/uL 0.83-4.51 [facility] Absolute neutrophil countOrd ered By: Carrillomahadmakenzie Torojenifersophia on 04-03-2024 Neutrophils (Bld) [#/Vol] 3.0 10*3/uL 2.0-7.7 [facility] Automated lymphocyte count a s percentage of total leukocytesOrdered By: Jairon Medel on 04-03-2024 Lymphocytes/100 WBC Auto (Unsp spec) 32.1 % 19-41 [facility] Basophil percentageOrdered B y: Jairon Medel on 04-03-2024 Basophils/100 WBC (Bld) 1.3 % High 0-1 [facility] Blood urea nitrogen (BUN)/cr eatinine ratioOrdered By: Jairon Medel on 04-03-2024 Urea nitrogen/Creatinine [Mass ratio] 21.1 mg/mg High 10-20 [facility] Carbon dioxide measurementOr dered By: Jairon Medel on 04-03-2024 CO2 [Moles/Vol] 27.0 mmol/L 21.0-32.0 [facility] Chloride measurementOrdered By: Jairon Medel on 04-03-2024 Chloride [Moles/Vol] 111 mmol/L High 98-107 [facility] Eosinophil percentageOrdered By: Jairon Medel on 04-03-2024 Eosinophils/100 WBC (Bld) 2.3 % 0-5 [facility] Erythrocyte distribution wid th (RBC) [Ratio]Ordered By: Jairon Medel on 04-03-2024 Erythrocyte distribution width (RBC) [Entitic vol] 43.2 fL 35.1-43.9 [facility] Erythrocyte distribution wid th ratioOrdered By: Jairon Medel on 04-03-2024 Erythrocyte distribution width (RBC) [Ratio] 13.2 % 11.6-14.6 [facility] Erythrocyte distribution wid th standard deviationOrdered By: Poojasreekanthmahadmakenzie Medel on 04-03-2024 Erythrocyte distribution width (RBC) [Ratio] 43.2 fl 35.1-43.9 [facility] Estimated glomerular filtrat ion rate (GFR) AmericanOrdered By: Jairon Medel on 04-03-2024 Estimated GFR (MDRD) Amer 72 mL/min >60 [facility] Comment on above: GFR Calc Glomerular filtration rate ( GFR) estimationOrdered By: Jairon Medel on 04-03-2024 Estimated GFR (MDRD) Non-Af Amer 59 mL/min Low >60 [facility] Comment on above: Non- GFR Calc GFR/1.73 sq M.predicted among non-blacks MDRD (S/P/Bld) [Vol rate/Area] 59 mL/min/{1.73_m2} Low >60 [facility] Comment on above: Non- GFR Calc Glucose measurementOrdered B y: Jairon Medel on 04-03-2024 Glucose [Mass/Vol] 93 mg/dL 74-106 [facility] Hematocrit Auto (Bld) [Volum e fraction]Ordered By: Jairon Medel on 04-03-2024 Hematocrit (Bld) [Volume fraction] 31.6 % Low 37-47 [facility] Hemoglobin measurementOrdere d By: Jairon Medel on 04-03-2024 Hemoglobin (Bld) [Mass/Vol] 9.7 g/dL Low 12.0-15.0 [facility] Immature granulocytes/100 WB C Auto (Bld)Ordered By: margarette Medel on 04-03-2024 Immature granulocytes/100 WBC (Bld) 0.200 % 0.0-0.9 [facility] Comment on above: IG% - Immature Granu locytes (promyelocytes, myelocytes and metamyelocytes) > 1% indicates that a LEFT SHIFT is Present. Lymphocytes Auto (Unsp spec) [#/Vol]Ordered By: Jairon Medel on 04-03-2024 Lymphocytes (Bld) [#/Vol] 1.70 10*3/uL 0.83-4.51 [facility] Lymphocytes/100 WBC Auto (Un sp spec)Ordered By: Jairon Medel on 04-03-2024 Lymphocytes/100 WBC (Bld) 32.1 % 19-41 [facility] MCV (mean corpuscular volume ) determinationOrdered By: Jairon Medel on 04-03-2024 MCV (RBC) [Entitic vol] 91.1 fL 81-99 [facility] Mean corpuscular hemoglobin (MCH) determinationOrdered By: Jairon Medel on 04-03-2024 MCH (RBC) [Entitic mass] 28.0 pg 27.0-32.0 [facility] Mean corpuscular hemoglobin concentration (MCHC) determinationOrdered By: Jairon Medel on 04-03-2024 MCHC (RBC) [Mass/Vol] 30.7 g/dL Low 32-36 [facility] Mean platelet volume determi nationOrdered By: Jairon Medel on 04-03-2024 Platelet mean volume (Bld) [Entitic vol] 9.9 fL 6.2-12.0 [facility] Monocyte percentageOrdered B y: Jairon Medel on 04-03-2024 Monocytes/100 WBC (Bld) 8.3 % 0-10 [facility] Neutrophil percentageOrdered By: Jairon Medel on 04-03-2024 Neutrophils/100 WBC (Bld) 55.8 % 47-70 [facility] Nucleated red blood cell per centageOrdered By: Jairon Medel on 04-03-2024 Nucleated RBC/100 WBC (Bld) [Ratio] 0 % 0-5 [facility] Platelet countOrdered By: Pooja Medel on 04-03-2024 Platelets (Bld) [#/Vol] 229 10*3/uL 150-450 [facility] Potassium measurementOrdered By: Jairon Medel on 04-03-2024 Potassium [Moles/Vol] 4.4 mmol/L 3.5-5.1 [facility] RBC Auto (Bld) [#/Vol]Ordere d By: Jairon Olejenifersophia on 04-03-2024 RBC (Bld) [#/Vol] 3.47 10*6/uL Low 4.2-5.4 [facility] Serum anion gap measurementO rdered By: Poojasreekanthmahadmakenzie Torojenifersophia on 04-03-2024 Anion gap [Moles/Vol] 6 mmol/L 5-15 [facility] Serum or plasma calcium krissy urement (mass/volume)Ordered By: Jairon Medel on 04-03-2024 Calcium [Mass/Vol] 9.4 mg/dL 8.5-10.1 [facility] Serum or plasma creatinine m easurement (mass/volume)Ordered By: Jairon Medel on 04-03-2024 Creatinine [Mass/Vol] 0.95 mg/dL 0.55-1.02 [facility] Comment on above: The validity of the calculated GFR & GFRAA in patients over 70 years has not been determined. Clinical correlation is essential. Serum or plasma urea nitroge n measurement (mass/volume)Ordered By: Jairon Medel on 04-03-2024 Urea nitrogen [Mass/Vol] 20 mg/dL High 7-18 [facility] Sodium levelOrdered By: Poojasreekanth braden Cortezjenifersophia on 04-03-2024 Sodium [Moles/Vol] 144 mmol/L 136-145 [facility] White blood cell (WBC) count Ordered By: Jairon Torojenifersophia on 04-03-2024 WBC (Bld) [#/Vol] 5.3 10*3/uL 4.4-11.0 [facility] Absolute lymphocyte countOrd ered By: Jairon Torojenifersophia on 03-27-2024 Lymphocytes Auto (Unsp spec) [#/Vol] 2.06 10*3/uL 0.83-4.51 [facility] Absolute neutrophil countOrd ered By: Carrillomahadmakenzie Torojenifersophia on 03-27-2024 Neutrophils (Bld) [#/Vol] 3.3 10*3/uL 2.0-7.7 [facility] Automated lymphocyte count a s percentage of total leukocytesOrdered By: Jairon Torojenifersophia on 03-27-2024 Lymphocytes/100 WBC Auto (Unsp spec) 33.5 % 19-41 [facility] Basophil percentageOrdered B y: Jairon Medel on 03-27-2024 Basophils/100 WBC (Bld) 0.8 % 0-1 [facility] Blood urea nitrogen (BUN)/cr eatinine ratioOrdered By: Jairon Medel on 03-27-2024 Urea nitrogen/Creatinine [Mass ratio] 19.3 mg/mg 10-20 [facility] Carbon dioxide measurementOr dered By: Jairon Medel on 03-27-2024 CO2 [Moles/Vol] 27.0 mmol/L 21.0-32.0 [facility] Chloride measurementOrdered By: Jairon Medel on 03-27-2024 Chloride [Moles/Vol] 110 mmol/L High 98-107 [facility] Eosinophil percentageOrdered By: Jairon Medel on 03-27-2024 Eosinophils/100 WBC (Bld) 2.3 % 0-5 [facility] Erythrocyte distribution wid th (RBC) [Ratio]Ordered By: Jairon Medel on 03-27-2024 Erythrocyte distribution width (RBC) [Entitic vol] 43.7 fL 35.1-43.9 [facility] Erythrocyte distribution wid th ratioOrdered By: Jairon Medel on 03-27-2024 Erythrocyte distribution width (RBC) [Ratio] 13.2 % 11.6-14.6 [facility] Erythrocyte distribution wid th standard deviationOrdered By: Jairon Medel on 03-27-2024 Erythrocyte distribution width (RBC) [Ratio] 43.7 fl 35.1-43.9 [facility] Estimated glomerular filtrat ion rate (GFR) AmericanOrdered By: Jairon Medel on 03-27-2024 Estimated GFR (MDRD) Amer 69 mL/min >60 [facility] Comment on above: GFR Calc Glomerular filtration rate ( GFR) estimationOrdered By: Jairon Medel on 03-27-2024 Estimated GFR (MDRD) Non-Af Amer 57 mL/min Low >60 [facility] Comment on above: Non- GFR Calc GFR/1.73 sq M.predicted among non-blacks MDRD (S/P/Bld) [Vol rate/Area] 57 mL/min/{1.73_m2} Low >60 [facility] Comment on above: Non- GFR Calc Glucose measurementOrdered B y: Poojasreekanthmahadmakenzie Medel on 03-27-2024 Glucose [Mass/Vol] 89 mg/dL 74-106 [facility] Hematocrit Auto (Bld) [Volum e fraction]Ordered By: Jairon Medel on 03-27-2024 Hematocrit (Bld) [Volume fraction] 30.9 % Low 37-47 [facility] Hemoglobin measurementOrdere d By: Carrillomahadmakenzie Medel on 03-27-2024 Hemoglobin (Bld) [Mass/Vol] 9.6 g/dL Low 12.0-15.0 [facility] Immature granulocytes/100 WB C Auto (Bld)Ordered By: Jairon Medel on 03-27-2024 Immature granulocytes/100 WBC (Bld) 0.500 % 0.0-0.9 [facility] Comment on above: IG% - Immature Granu locytes (promyelocytes, myelocytes and metamyelocytes) > 1% indicates that a LEFT SHIFT is Present. Lymphocytes Auto (Unsp spec) [#/Vol]Ordered By: Jairon Medel on 03-27-2024 Lymphocytes (Bld) [#/Vol] 2.06 10*3/uL 0.83-4.51 [facility] Lymphocytes/100 WBC Auto (Un sp spec)Ordered By: Jairon Medel on 03-27-2024 Lymphocytes/100 WBC (Bld) 33.5 % 19-41 [facility] MCV (mean corpuscular volume ) determinationOrdered By: Jairon Medel on 03-27-2024 MCV (RBC) [Entitic vol] 90.1 fL 81-99 [facility] Mean corpuscular hemoglobin (MCH) determinationOrdered By: Jairon Medel on 03-27-2024 MCH (RBC) [Entitic mass] 28.0 pg 27.0-32.0 [facility] Mean corpuscular hemoglobin concentration (MCHC) determinationOrdered By: Jairon Medel on 03-27-2024 MCHC (RBC) [Mass/Vol] 31.1 g/dL Low 32-36 [facility] Mean platelet volume determi nationOrdered By: Jairon Medel on 03-27-2024 Platelet mean volume (Bld) [Entitic vol] 10.2 fL 6.2-12.0 [facility] Monocyte percentageOrdered B y: Jairon Medel on 03-27-2024 Monocytes/100 WBC (Bld) 9.6 % 0-10 [facility] Neutrophil percentageOrdered By: Jairon Medel on 03-27-2024 Neutrophils/100 WBC (Bld) 53.3 % 47-70 [facility] Nucleated red blood cell per centageOrdered By: Jairon Medel on 03-27-2024 Nucleated RBC/100 WBC (Bld) [Ratio] 0 % 0-5 [facility] Platelet countOrdered By: Pooja Medel on 03-27-2024 Platelets (Bld) [#/Vol] 235 10*3/uL 150-450 [facility] Potassium measurementOrdered By: Jairon Medel on 03-27-2024 Potassium [Moles/Vol] 4.0 mmol/L 3.5-5.1 [facility] RBC Auto (Bld) [#/Vol]Ordere d By: Jairon Medel on 03-27-2024 RBC (Bld) [#/Vol] 3.43 10*6/uL Low 4.2-5.4 [facility] Serum anion gap measurementO rdered By: Jairon Medel on 03-27-2024 Anion gap [Moles/Vol] 6 mmol/L 5-15 [facility] Serum or plasma calcium krissy urement (mass/volume)Ordered By: Jairon Medel on 03-27-2024 Calcium [Mass/Vol] 9.3 mg/dL 8.5-10.1 [facility] Serum or plasma creatinine m easurement (mass/volume)Ordered By: Jairon Medel on 03-27-2024 Creatinine [Mass/Vol] 0.98 mg/dL 0.55-1.02 [facility] Comment on above: The validity of the calculated GFR & GFRAA in patients over 70 years has not been determined. Clinical correlation is essential. Serum or plasma urea nitroge n measurement (mass/volume)Ordered By: Goldiemakenzie Torojenifersophia on 03-27-2024 Urea nitrogen [Mass/Vol] 19 mg/dL High 7-18 [facility] Sodium levelOrdered By: Poojasreekanth braden Cortezjenifersophia on 03-27-2024 Sodium [Moles/Vol] 143 mmol/L 136-145 [facility] White blood cell (WBC) count Ordered By: Jairon Cortezjenifersophia on 03-27-2024 WBC (Bld) [#/Vol] 6.2 10*3/uL 4.4-11.0 [facility] 99-MO-Qiennhg DOrdered By: Sophia claudia Cortezjenifersophia on 02-28-2024 Vitamin D 25-Hydroxy 60.8 ng/mL [facility] Comment on above: Vitamin D 25(OH) Sta tus Range Deficiency <20 ng/mL (50nmol/L) Insufficiency 20 - 30 ng/mL (50 - 75 nmol/L) Sufficiency 30 - 100 ng/mL (75 - 250 nmol/L) Toxicity >100 ng/mL (>250 nmol/L) Absolute lymphocyte countOrd ered By: Jairon Cortezjenifersophia on 02-28-2024 Lymphocytes Auto (Unsp spec) [#/Vol] 1.75 10*3/uL 0.83-4.51 [facility] Absolute neutrophil countOrd ered By: Jairon Cortezjenifersophia on 02-28-2024 Neutrophils (Bld) [#/Vol] 3.9 10*3/uL 2.0-7.7 [facility] Albumin to globulin ratioOrd ered By: Jairon Cortezdorcas on 02-28-2024 Albumin/Globulin [Mass ratio] 1.0 {ratio} 0.9-2.4 [facility] Automated lymphocyte count a s percentage of total leukocytesOrdered By: Jairon Cortezjenifersophia on 02-28-2024 Lymphocytes/100 WBC Auto (Unsp spec) 27.3 % 19-41 [facility] Basophil percentageOrdered B y: Jairon Medel on 02-28-2024 Basophils/100 WBC (Bld) 0.8 % 0-1 [facility] Bilirubin, totalOrdered By: Jairon Medel on 02-28-2024 Bilirubin [Mass/Vol] 0.20 mg/dL 0.20-1.00 [facility] Comment on above: For patients on eltr ombopag therapy, use of Dimension [place] TBIL is not recommended. Blood urea nitrogen (BUN)/cr eatinine ratioOrdered By: Jairon Medel on 02-28-2024 Urea nitrogen/Creatinine [Mass ratio] 24.1 mg/mg High 10-20 [facility] Carbon dioxide measurementOr dered By: Jairon Medel on 02-28-2024 CO2 [Moles/Vol] 27.0 mmol/L 21.0-32.0 [facility] Chloride measurementOrdered By: Jairon Medel on 02-28-2024 Chloride [Moles/Vol] 111 mmol/L High 98-107 [facility] Eosinophil percentageOrdered By: Jairon Medel on 02-28-2024 Eosinophils/100 WBC (Bld) 2.3 % 0-5 [facility] Erythrocyte distribution wid th (RBC) [Ratio]Ordered By: Jairon Medel on 02-28-2024 Erythrocyte distribution width (RBC) [Entitic vol] 43.7 fL 35.1-43.9 [facility] Erythrocyte distribution wid th ratioOrdered By: Jairon Medel on 02-28-2024 Erythrocyte distribution width (RBC) [Ratio] 13.4 % 11.6-14.6 [facility] Erythrocyte distribution wid th standard deviationOrdered By: Jairon Medel on 02-28-2024 Erythrocyte distribution width (RBC) [Ratio] 43.7 fl 35.1-43.9 [facility] Estimated glomerular filtrat ion rate (GFR) AmericanOrdered By: Jairon Medel on 02-28-2024 Estimated GFR (MDRD) Amer 72 mL/min >60 [facility] Comment on above: GFR Calc Glomerular filtration rate ( GFR) estimationOrdered By: Jairon Medel on 02-28-2024 Estimated GFR (MDRD) Non-Af Amer 59 mL/min Low >60 [facility] Comment on above: Non- GFR Calc GFR/1.73 sq M.predicted among non-blacks MDRD (S/P/Bld) [Vol rate/Area] 59 mL/min/{1.73_m2} Low >60 [facility] Comment on above: Non- GFR Calc Glucose measurementOrdered B y: Jairon Medel on 02-28-2024 Glucose [Mass/Vol] 93 mg/dL 74-106 [facility] Hematocrit Auto (Bld) [Volum e fraction]Ordered By: Jairon Medel on 02-28-2024 Hematocrit (Bld) [Volume fraction] 32.1 % Low 37-47 [facility] Hemoglobin measurementOrdere d By: Jairon Medel on 02-28-2024 Hemoglobin (Bld) [Mass/Vol] 9.9 g/dL Low 12.0-15.0 [facility] High density lipoprotein (HD L) measurementOrdered By: Jairon Medel on 02-28-2024 Cholesterol in HDL [Mass/Vol] 58 mg/dL >40 [facility] Comment on above: The drugs N-Acetylcy steine and Metamizole may falsely depress this assay. Reference Range HDL <40 mg/dL Low HDL Cholesterol HDL >or= 60 mg/dL High HDL Cholesterol Immature granulocytes/100 WB C Auto (Bld)Ordered By: Jairon Medel on 02-28-2024 Immature granulocytes/100 WBC (Bld) 0.300 % 0.0-0.9 [facility] Comment on above: IG% - Immature Granu locytes (promyelocytes, myelocytes and metamyelocytes) > 1% indicates that a LEFT SHIFT is Present. Laboratory - Chemistry and C hemistry - challengeOrdered By: Jairon Medel on 02-28-2024 AST [Catalytic activity/Vol] 15 U/L 15-37 [facility] Low density lipoprotein (LDL ) cholesterol measurementOrdered By: Jairon Medel on 02-28-2024 Cholesterol in LDL [Mass/Vol] 67 mg/dL 0-130 [facility] Lymphocytes Auto (Unsp spec) [#/Vol]Ordered By: Jairon Medel on 02-28-2024 Lymphocytes (Bld) [#/Vol] 1.75 10*3/uL 0.83-4.51 [facility] Lymphocytes/100 WBC Auto (Un sp spec)Ordered By: Jairon Medel on 02-28-2024 Lymphocytes/100 WBC (Bld) 27.3 % 19-41 [facility] MCV (mean corpuscular volume ) determinationOrdered By: Jairon Medel on 02-28-2024 MCV (RBC) [Entitic vol] 89.4 fL 81-99 [facility] Mean corpuscular hemoglobin (MCH) determinationOrdered By: Jairon Medel on 02-28-2024 MCH (RBC) [Entitic mass] 27.6 pg 27.0-32.0 [facility] Mean corpuscular hemoglobin concentration (MCHC) determinationOrdered By: Jairon Medel on 02-28-2024 MCHC (RBC) [Mass/Vol] 30.8 g/dL Low 32-36 [facility] Mean platelet volume determi nationOrdered By: Jairon Medel on 02-28-2024 Platelet mean volume (Bld) [Entitic vol] 9.6 fL 6.2-12.0 [facility] Monocyte percentageOrdered B y: Jairon Medel on 02-28-2024 Monocytes/100 WBC (Bld) 8.7 % 0-10 [facility] Neutrophil percentageOrdered By: Jairon Medel on 02-28-2024 Neutrophils/100 WBC (Bld) 60.6 % 47-70 [facility] Nucleated red blood cell per centageOrdered By: Jairon Medel on 02-28-2024 Nucleated RBC/100 WBC (Bld) [Ratio] 0 % 0-5 [facility] Platelet countOrdered By: Pooja Medel on 02-28-2024 Platelets (Bld) [#/Vol] 261 10*3/uL 150-450 [facility] Potassium measurementOrdered By: Jairon Medel on 02-28-2024 Potassium [Moles/Vol] 4.1 mmol/L 3.5-5.1 [facility] RBC Auto (Bld) [#/Vol]Ordere d By: Jairon Medel on 02-28-2024 RBC (Bld) [#/Vol] 3.59 10*6/uL Low 4.2-5.4 [facility] Serum anion gap measurementO rdered By: Jairon Medel on 02-28-2024 Anion gap [Moles/Vol] 4 mmol/L Low 5-15 [facility] Serum globulin measurementOr dered By: Jairon Medel on 02-28-2024 Globulin (S) [Mass/Vol] 2.9 g/dL 2.2-4.2 [facility] Serum or plasma alanine crane otransferase (ALT) measurementOrdered By: Jairon Medel on 02-28-2024 ALT [Catalytic activity/Vol] 17 U/L 13-56 [facility] Serum or plasma albumin krissy urement (mass/volume)Ordered By: Jairon Medel on 02-28-2024 Albumin [Mass/Vol] 2.8 g/dL Low 3.2-5.0 [facility] Serum or plasma alkaline luis sphatase measurementOrdered By: Jairon Medel on 02-28-2024 ALP [Catalytic activity/Vol] 63 U/L 45-117 [facility] Serum or plasma calcium krissy urement (mass/volume)Ordered By: Jairon Medel on 02-28-2024 Calcium [Mass/Vol] 9.6 mg/dL 8.5-10.1 [facility] Serum or plasma cholesterol measurement (mass/volume)Ordered By: Jairon Medel on 02-28-2024 Cholesterol [Mass/Vol] 134 mg/dL <200 [facility] Comment on above: <200 mg/dL Desirable 200-240 mg/dL Borderline >240 mg/dL High Risk Serum or plasma creatinine m easurement (mass/volume)Ordered By: Jairon Medel on 02-28-2024 Creatinine [Mass/Vol] 0.95 mg/dL 0.55-1.02 [facility] Comment on above: The validity of the calculated GFR & GFRAA in patients over 70 years has not been determined. Clinical correlation is essential. Serum or plasma urea nitroge n measurement (mass/volume)Ordered By: Goldiemakenzie Torojenifersophia on 02-28-2024 Urea nitrogen [Mass/Vol] 23 mg/dL High 7-18 [facility] Sodium levelOrdered By: Poojasreekanth braden Cortezdorcas on 02-28-2024 Sodium [Moles/Vol] 143 mmol/L 136-145 [facility] Total proteinOrdered By: Masoud rosales Cortezdorcas on 02-28-2024 Protein [Mass/Vol] 5.7 g/dL Low 6.4-8.2 [facility] Triglycerides measurementOrd ered By: Jairon Cortezdorcas on 02-28-2024 Triglyceride [Mass/Vol] 43 mg/dL <199 [facility] Comment on above: The drugs N-Acetylcy steine and Metamizole may falsely depress this assay.Serum Triglycerides Reference Interval Normal <150 mg/dL Borderline high 150 - 199 mg/dL High 200 - 499 mg/dL Very High > or = 500 mg/dL Valproate levelOrdered By: Sophia claudia Cortezjenifersophia on 02-28-2024 Valproic Acid (Depakene) Level 26 ug/mL Low 50-100 [facility] Very low density lipoprotein (VLDL) cholesterol measurementOrdered By: Jairon Cortezjenifersophia on 02-28-2024 Very low density lipoprotein (VLDL) cholesterol measurement 9 mg/dL 5-40 [facility] VLDL Cholesterol 9 mg/dL 5-40 [facility] White blood cell (WBC) count Ordered By: Carrillomahadmakenzie oTrojenifersophia on 02-28-2024 WBC (Bld) [#/Vol] 6.4 10*3/uL 4.4-11.0 [facility] .Auto Diffon 02-10-2024 Basophil, Absolute 0.1 10 3/mcL Normal 0.0-0.[address] [facility] Comment on above: Performed By: #### B MP, MG, ANEU, ADIFF, CBC, GFR ####[address] [address] Basophils/100 WBC (Bld) 1.1 % Normal 0.0-2.5 [facility] Comment on above: Performed By: #### B MP, MG, ANEU, ADIFF, CBC, GFR ####[address] [place], [place] [address] Eosinophil, Absolute 0.1 10 3/mcL Normal 0.0-0.7 [facility] Comment on above: Performed By: #### B MP, MG, ANEU, ADIFF, CBC, GFR ####[place] [address] [place], [place] [address] Eosinophils/100 WBC (Bld) 1.8 % Normal 0.0-7.0 [facility] Comment on above: Performed By: #### B MP, MG, ANEU, ADIFF, CBC, GFR ####[place] [address] [place], [place] [address] Lymphocyte, Absolute 1.4 10 3/mcL Normal 0.9-4.3 [facility] Comment on above: Performed By: #### B MP, MG, ANEU, ADIFF, CBC, GFR ####[address] [address] Lymphocytes/100 WBC (Bld) 25.4 % Normal 20.0-40.0 [facility] Comment on above: Performed By: #### B MP, MG, ANEU, ADIFF, CBC, GFR ####[place] [address] [place] [address] Monocyte, Absolute 0.4 10 3/mcL Normal 0.1-1.[address] [facility] Comment on above: Performed By: #### B MP, MG, ANEU, ADIFF, CBC, GFR ####[address] [address] Monocytes/100 WBC (Bld) 7.4 % Normal 2.0-13.0 [facility] Comment on above: Performed By: #### B MP, MG, ANEU, ADIFF, CBC, GFR ####[address] [address] Neutrophils/100 WBC (Bld) 64.3 % Normal 50.0-75.0 [facility] Comment on above: Performed By: #### B MP, MG, ANEU, ADIFF, CBC, GFR ####[address] [place], [place] [address] .GFRon 02-10-2024 GFR 73 ml/min/1.73sqm Normal [facility] Comment on above: Result Comment: GFR [...] MG, ANEU, ADIFF, CBC, GFR ####[address] [place], [place] [address] GFR Non- 60 ml/min/1.73sqm Normal [facility] Comment on above: Result Comment: GFR [...] MP, MG, ANEU, ADIFF, CBC, GFR ####[address] [place], [place] [address] .NEUABSon 02-10-2024 Neutrophil, Absolute 3.7 10 3/mcL Normal 2.3-8.1 [facility] Comment on above: Performed By: #### B MP, MG, ANEU, ADIFF, CBC, GFR ####[address] [place], [place] [address] BMPon 02-10-2024 BUN/Creatinine Ratio 25 ratio Normal 7-[address] [facility] Comment on above: Performed By: #### B MP, MG, ANEU, ADIFF, CBC, GFR ####[address] [address] [place], [place] [address] Calcium [Mass/Vol] 10.0 mg/dL Normal 8.4-10.2 [facility] Comment on above: Performed By: #### B MP, MG, ANEU, ADIFF, CBC, GFR ####[address] [address] Chloride [Moles/Vol] 107 mmol/L Normal 98-[address] [facility] Comment on above: Performed By: #### B MP, MG, ANEU, ADIFF, CBC, GFR ####[address] [address] CO2 [Moles/Vol] 30 mmol/L Normal 23-31 [facility] Comment on above: Performed By: #### B MP, MG, ANEU, ADIFF, CBC, GFR ####[address] [address] Creatinine [Mass/Vol] 0.89 mg/dL Normal 0.55-1.02 [facility] Comment on above: Result Comment: Test ing performed on Siemens Dimension EXL analyzer using a modified kinetic Dora technique. Performed By: #### B MP, MG, ANEU, ADIFF, CBC, GFR ####[address] [place], [place] [address] Electrolyte Balance 8.0 mEq/L Normal 4.0-15.0 [facility] Comment on above: Performed By: #### B MP, MG, ANEU, ADIFF, CBC, GFR ####[address] [address] [place], [place] [address] Glucose [Mass/Vol] 111 mg/dL High 83-110 [facility] Comment on above: Performed By: #### B MP, MG, ANEU, ADIFF, CBC, GFR ####[address] [place], [place] [address] Potassium [Moles/Vol] 4.0 mmol/L Normal 3.5-5.1 [facility] Comment on above: Performed By: #### B MP, MG, ANEU, ADIFF, CBC, GFR ####[address] [place], [place] [address] Sodium [Moles/Vol] 145 mmol/L Normal 136-145 [facility] Comment on above: Performed By: #### B MP, MG, ANEU, ADIFF, CBC, GFR ####[address] [place] [address] Urea nitrogen [Mass/Vol] 22 mg/dL High 7-18 [facility] Comment on above: Performed By: #### B MP, MG, ANEU, ADIFF, CBC, GFR ####[address] [place] [address] CBCon 02-10-2024 Erythrocyte distribution width (RBC) [Ratio] 14.1 % Normal 11.5-15.5 [facility] Comment on above: Performed By: #### B MP, MG, ANEU, ADIFF, CBC, GFR ####[address] [place], [place] [address] Hematocrit (Bld) [Volume fraction] 33.2 % Low 34.0-46.0 [facility] Comment on above: Performed By: #### B MP, MG, ANEU, ADIFF, CBC, GFR ####[address] [place], [place] [address] Hgb 11.3 G/dL Low 12.0-16.0 [facility] Comment on above: Performed By: #### B MP, MG, ANEU, ADIFF, CBC, GFR ####[address] [place] [id number] MCH (RBC) [Entitic mass] 28.8 pg Normal 27.0-33.0 [facility] Comment on above: Performed By: #### B MP, MG, ANEU, ADIFF, CBC, GFR ####[address] [place], [place] [address] MCHC 34.1 G/dL Normal 32.0-36.0 [facility] Comment on above: Performed By: #### B MP, MG, ANEU, ADIFF, CBC, GFR ####[address] [place], [place] [address] MCV (RBC) [Entitic vol] 84.5 fL Normal 80.0-99.0 [facility] Comment on above: Performed By: #### B MP, MG, ANEU, ADIFF, CBC, GFR ####[address] [place], [place] [address] Platelet 272 10 3/mcL Normal 150-450 [facility] Comment on above: Performed By: #### B MP, MG, ANEU, ADIFF, CBC, GFR ####[address] [place], [place] [address] Platelet mean volume (Bld) [Entitic vol] 7.7 fL Normal 6.6-10.5 [facility] Comment on above: Performed By: #### B MP, MG, ANEU, ADIFF, CBC, GFR ####[address] [place], [place] [address] RBC 3.93 10 6/mcL Low 4.10-5.30 [facility] Comment on above: Performed By: #### B MP, MG, ANEU, ADIFF, CBC, GFR ####[address] [place], [place] [address] WBC 5.7 10 3/mcL Normal 4.5-10.8 [facility] Comment on above: Performed By: #### B MP, MG, ANEU, ADIFF, CBC, GFR ####[address] [place], [place] [address] LABORATORYOrdered By: SYSTEM SYSTEM on 02-10-2024 Basophils [...] above: Interpretive Data: T esting performed on [employer] Dimension EXL analyzer using a modified kinetic [...] 02-10-2024 Magnesium [Mass/Vol] 1.7 mg/dL Low 1.8-2.[address] [facility] Comment on above: Performed By: #### B MP, MG, ANEU, ADIFF, CBC, GFR ####[address] [place], [place] [address] .Auto Diffon 02-09-2024 Basophil, Absolute 0.1 10 3/mcL Normal 0.0-0.[address] [facility] Comment on above: Performed By: #### B NAFISA MCHUGH, GFR, ANEU, TROPHS, PBNP, CBC, ADIFF ####[address] [place], [place] [address] Basophils/100 WBC (Bld) 1.1 % Normal 0.0-2.5 [facility] Comment on above: Performed By: #### B MD JEISONW, GFR, ANEU, TROPHS, PBNP, CBC, ADIFF ####[address] [place], [place] [address] Eosinophil, Absolute 0.1 10 3/mcL Normal 0.0-0.7 [facility] Comment on above: Performed By: #### B MP, MDW, GFR, ANEU, TROPHS, PBNP, CBC, ADIFF ####[place] [address] [place], [place] [address] Eosinophils/100 WBC (Bld) 1.6 % Normal 0.0-7.0 [facility] Comment on above: Performed By: #### B MP, MDW, GFR, ANEU, TROPHS, PBNP, CBC, ADIFF ####[place] [address] [place], [place] [address] Lymphocyte, Absolute 2.2 10 3/mcL Normal 0.9-4.3 [facility] Comment on above: Performed By: #### B MP, MDW, GFR, ANEU, TROPHS, PBNP, CBC, ADIFF ####[facility] [place], [place] [address] Lymphocytes/100 WBC (Bld) 29.4 % Normal 20.0-40.0 [facility] Comment on above: Performed By: #### B MP, MDW, GFR, ANEU, TROPHS, PBNP, CBC, ADIFF ####[facility] [place], [place] [address] Monocyte, Absolute 0.7 10 3/mcL Normal 0.1-1.[address] [facility] Comment on above: Performed By: #### B MP, MDW, GFR, ANEU, TROPHS, PBNP, CBC, ADIFF ####[facility] [place], [place] [address] Monocytes/100 WBC (Bld) 9.6 % Normal 2.0-13.0 [facility] Comment on above: Performed By: #### B MP, MDW, GFR, ANEU, TROPHS, PBNP, CBC, ADIFF ####[place] [address] [place], [place] [address] Neutrophils/100 WBC (Bld) 58.3 % Normal 50.0-75.0 [facility] Comment on above: Performed By: #### B MP, MDW, GFR, ANEU, TROPHS, PBNP, CBC, ADIFF ####[address] [place], [place] [address] .GFRon 02-09-2024 GFR 67 ml/min/1.73sqm Normal [facility] Comment on above: Result Comment: GFR [...] MCHUGH, GFR, ANEU, TROPHS, PBNP, CBC, ADIFF ####[place] [address] [place], [place] [address] GFR Non- 55 ml/min/1.73sqm Normal [facility] Comment on above: Result Comment: GFR [...] MCHUGH, GFR, ANEU, TROPHS, PBNP, CBC, ADIFF ####[place] [address] [place], [place] [address] .MDWon 02-09-2024 Monocyte Distribution Width 17.09 Normal 0.00-20.00 [facility] Comment on above: Result Comment: For ED adult patients suspected of sepsis, MDW<=20.0 does not rule out sepsis or risk of sepsis Performed By: #### B NAFISA MCHUGH, GFR, ANEU, TROPHS, PBNP, CBC, ADIFF ####[address] [place], [place] [address] .NEUABSon 02-09-2024 Neutrophil, Absolute 4.4 10 3/mcL Normal 2.3-8.1 [facility] Comment on above: Performed By: #### B JEISON, NAFISA, GFR, ANEU, TROPHS, PBNP, CBC, ADIFF ####[facility] [place], [place] [address] BMPon 02-09-2024 BUN/Creatinine Ratio 26 ratio Normal 7-[address] [facility] Comment on above: Performed By: #### B NAFISA MCHUGH, GFR, ANEU, TROPHS, PBNP, CBC, ADIFF ####[address] [place], [place] [address] Calcium [Mass/Vol] 10.4 mg/dL High 8.4-10.2 [facility] Comment on above: Performed By: #### B NAFISA MCHUGH, GFR, ANEU, TROPHS, PBNP, CBC, ADIFF ####[address] [place], [place] [address] Chloride [Moles/Vol] 104 mmol/L Normal 98-[address] [facility] Comment on above: Performed By: #### B NAFISA MCHUGH, GFR, ANEU, TROPHS, PBNP, CBC, ADIFF ####[address] [place], [place] [address] CO2 [Moles/Vol] 30 mmol/L Normal 23-31 [facility] Comment on above: Performed By: #### B NAFISA MCHUGH, GFR, ANEU, TROPHS, PBNP, CBC, ADIFF ####[address] [place], [place] [address] Creatinine [Mass/Vol] 0.96 mg/dL Normal 0.55-1.02 [facility] Comment on above: Result Comment: Test ing performed on Siemens Dimension EXL analyzer using a modified kinetic Dora technique. Performed By: #### B JEISON, W, GFR, ANEU, TROPHS, PBNP, CBC, ADIFF ####[address] [place], [place] [address] Electrolyte Balance 10.0 mEq/L Normal 4.0-15.0 [facility] Comment on above: Performed By: #### B MP, W, GFR, ANEU, TROPHS, PBNP, CBC, ADIFF ####[address] [place], [place] [address] Glucose [Mass/Vol] 108 mg/dL Normal 83-110 [facility] Comment on above: Performed By: #### B JEISON, W, GFR, ANEU, TROPHS, PBNP, CBC, ADIFF ####[address] [place], [place] [address] Potassium [Moles/Vol] 3.6 mmol/L Normal 3.5-5.1 [facility] Comment on above: Performed By: #### B JEISON, W, GFR, ANEU, TROPHS, PBNP, CBC, ADIFF ####[id number] [place], [place] [address] Sodium [Moles/Vol] 144 mmol/L Normal 136-145 [facility] Comment on above: Performed By: #### B JEISON, W, GFR, ANEU, TROPHS, PBNP, CBC, ADIFF ####[address] [place], [place] [address] Urea nitrogen [Mass/Vol] 25 mg/dL High 7-18 [facility] Comment on above: Performed By: #### B JEISON, NAFISA, GFR, ANEU, TROPHS, PBNP, CBC, ADIFF ####[id number] [place], [place] [address] CBCon 02-09-2024 Erythrocyte distribution width (RBC) [Ratio] 14.0 % Normal 11.5-15.5 [facility] Comment on above: Performed By: #### B JEISON, W, GFR, ANEU, TROPHS, PBNP, CBC, ADIFF ####[id number] [place], [place] [address] Hematocrit (Bld) [Volume fraction] 34.7 % Normal 34.0-46.0 [facility] Comment on above: Performed By: #### B NAFISA MCHUGH, GFR, ANEU, TROPHS, PBNP, CBC, ADIFF ####[address] [place], [place] [address] Hgb 11.7 G/dL Low 12.0-16.0 [facility] Comment on above: Performed By: #### B NAFISA MCHUGH, GFR, ANEU, TROPHS, PBNP, CBC, ADIFF ####[address] [place], [place] [address] MCH (RBC) [Entitic mass] 28.7 pg Normal 27.0-33.0 [facility] Comment on above: Performed By: #### B NAFISA MCHUGH, GFR, ANEU, TROPHS, PBNP, CBC, ADIFF ####[address] [place], [place] [address] MCHC 33.7 G/dL Normal 32.0-36.0 [facility] Comment on above: Performed By: #### B NAFISA MCHUGH, GFR, ANEU, TROPHS, PBNP, CBC, ADIFF ####[address] [place], [place] [address] MCV (RBC) [Entitic vol] 85.0 fL Normal 80.0-99.0 [facility] Comment on above: Performed By: #### B NAFISA MCHUGH, GFR, ANEU, TROPHS, PBNP, CBC, ADIFF ####[address] [place], [place] [address] Platelet 266 10 3/mcL Normal 150-450 [facility] Comment on above: Performed By: #### B NAFISA MCHUGH, GFR, ANEU, TROPHS, PBNP, CBC, ADIFF ####[address] V[address] [place], [place] [address] Platelet mean volume (Bld) [Entitic vol] 7.4 fL Normal 6.6-10.5 [facility] Comment on above: Performed By: #### B NAFISA MCHUGH, GFR, ANEU, TROPHS, PBNP, CBC, ADIFF ####[address]ds[address] [place], [place] [address] RBC 4.08 10 6/mcL Low 4.10-5.30 [facility] Comment on above: Performed By: #### B JEISON, NAFISA, GFR, ANEU, TROPHS, PBNP, CBC, ADIFF ####[address] [place], [place] [address] WBC 7.6 10 3/mcL Normal 4.5-10.8 [facility] Comment on above: Performed By: #### B JEISON, NAFISA, GFR, ANEU, TROPHS, PBNP, CBC, ADIFF ####[address] [place], [place] [address] LABORATORYOrdered By: Addis Pelayo on 02-09-2024 Appearance [...] ng/L Male: 0-76 ng/L Testing performed on [employer] using a homogeneous sandwich chemiluminescent immunoassay based on [employer] technology. Urea nitrogen [Mass/Vol] 25 mg/dL High 7 - 18 mg/dL AO ADM SS Urea nitrogen/Creatinine [Mass ratio] 26 ratio Normal 7 - 27 ratio AO ADM SS WBC (Bld) [#/Vol] 7.6 103/mcL Normal 4.5 - 10.8 10^3/mcL AO Workflow SS PBNPon 02-09-2024 Natriuretic peptide B (Bld) [Mass/Vol] 3243 pg/mL High 0-450 [facility] Comment on above: Result Comment: NT-p roBNP results of less than 300 pg/mL effectively rules out acute congestive heart failure with 99% negative predictive value. Performed By: #### B NAFISA MCHUGH, GFR, ANEU, TROPHS, PBNP, CBC, ADIFF ####[address] [place], [place] [address] TROPHSon 02-09-2024 High Sensitivity Troponin I 23 ng/L Normal 0-51 [facility] Comment on above: Result Comment: High Sensitive Troponin I Reference Ranges: Female: 0-51 ng/L Male: 0-76 ng/L Testing performed on [employer] using a homogeneous sandwich chemiluminescent immunoassay based on [employer] technology. Performed By: #### B NAFISA MCHUGH, GFR, ANEU, TROPHS, PBNP, CBC, ADIFF ####[place] [place] [id number] UAon 02-09-2024 Color (U) Yellow Normal [facility] Comment on above: Performed By: #### U A ####[place] [address] [place] [address] Glucose (U) [Mass/Vol] Negative Normal Negative [facility] Comment on above: Performed By: #### U A ####[place] Ffk[address] [place] [address] Ketones Ql (U) Negative Normal Negative [facility] Comment on above: Performed By: #### U A ####[place] X[address] [place] [address]15787 UA Appear Clear Normal Clear [facility] Comment on above: Performed By: #### U A ####[place] [address]rqq[address] [place] [address] UA Blood Negative Normal Negative [facility] Comment on above: Performed By: #### U A ####[place] [place] [address] UA Leuk Est Negative Normal Negative [facility] Comment on above: Performed By: #### U A ####[place] [address]fm[address] [place] [address]15787 UA Nitrite Negative Normal Negative [facility] Comment on above: Performed By: #### U A ####[address] Qp[address]alx[address] [place], [place] [address] UA pH 6.5 Normal 5.0 - 8.0 [facility] Comment on above: Performed By: #### U A ####[address] [place], [place] [address] UA Protein Negative Normal Negative [facility] Comment on above: Performed By: #### U A ####[address]fqsso[address] [place], [place] [address] UA Spec Grav 1.015 Normal 1.015-1.025 [facility] Comment on above: Performed By: #### U A ####[address] [place], [place] [address] UA Specimen Type Void Normal [facility] Comment on above: Performed By: #### U A ####[facility] [place], [place] [address] UA Urobilinogen 0.2 E.U./dL Normal 0.2-1.0 [facility] Comment on above: Performed By: #### U A ####[place] [address] [place], [place] [address] Urobilinogen (U) [Mass/Vol] Negative Normal Negative [facility] Comment on above: Performed By: #### U A ####[facility] [place], [place] [address] VALPRon 02-09-2024 LDose Valproic Acid: Unknown Normal [facility] Comment on above: Performed By: #### V ALPR ####[address] [place], [place] [address] Valproic Acid Lvl 30 mcg/mL Low 50-100 [facility] Comment on above: Performed By: #### V ALPR ####[address]ec[address]ince [address] [place], [place] [address] XR CHEST 1 VIEWon 02-09-2024 XR CHEST [...] 02/09/2024 9:08:10 PM Ordering Provider: TRIXIE Geronimo [facility] .Urinalysis Microscopic (AO) on 01-21-2024 UA Amorphus 1+ /hpf Normal [facility] Comment on above: Performed By: #### U A, UAMICAO ####[place] [address] UA CA Ox Crystal 1+ /hpf Normal [facility] Comment on above: Performed By: #### U A, UAMICAO ####[place] [address] UA Mucous 2+ /hpf Normal [facility] Comment on above: Performed By: #### U A, UAMICAO ####[place] [address] [place] [address] UA RBC 0-[address] [facility] Comment on above: Performed By: #### U A, UAMICAO ####[address] [place] [address] UA Squam Epithelial 0-5 Abnormal None Seen [facility] [place] Comment on above: Performed By: #### U A, UAMICAO ####[place] [place] [address] UA WBC 0-[address] [facility] Comment on above: Performed By: #### U A, UAMICAO ####[place] [address] [address] LABORATORYOrdered By: Mao Nava on 01-21-2024 Appearance [...] SS UAon 01-21-2024 Color (U) Yellow Normal [facility] Comment on above: Performed By: #### U Steffany UAMICAO ####[address] [address] Glucose (U) [Mass/Vol] Negative Normal Negative [facility] Comment on above: Performed By: #### U A, UAMICAO ####[address] [place] [address] Ketones Ql (U) Negative Normal Negative [facility] Comment on above: Performed By: #### U A, UAMICAO ####[address] [place] [address] UA Appear Clear Normal Clear [facility] Comment on above: Performed By: #### U A, UAMICAO ####[address] [place] [address] UA Blood Negative Normal Negative [facility] Comment on above: Performed By: #### U A, UAMICAO ####[address] [place] [address] UA Leuk Est Negative Normal Negative [facility] Comment on above: Performed By: #### U A, UAMICAO ####[place] [address]wib[address] [address] UA Nitrite Negative Normal Negative [facility] Comment on above: Performed By: #### U A, UAMICAO ####[place] Pht[address]ts[address] [place] [address] UA pH 6.0 Normal 5.0 - 8.0 [facility] Comment on above: Performed By: #### U A, UAMICAO ####[address] [place] [address] UA Protein 30 mg/dL Normal Negative [facility] Comment on above: Performed By: #### U A, UAMICAO ####[address] [place] [address] UA Spec Grav 1.020 Normal 1.015-1.025 [facility] Comment on above: Performed By: #### U A, UAMICAO ####[address] [place] [address] UA Specimen Type Hua Catheter Normal [facility] Comment on above: Performed By: #### U A, UAMICAO ####[place] [address] [place] [address]57 UA Urobilinogen 0.2 E.U./dL Normal 0.2-1.0 [facility] Comment on above: Performed By: #### U KRISHNA Jeter ####[address] [place], [place] [address] Urobilinogen (U) [Mass/Vol] Negative Normal Negative [facility] Comment on above: Performed By: #### U KRISHNA Jeter ####[address] [place], [place] [address] US BLADDERon 01-07-2024 US BLADDER ORIGINAL EXAMINATION: [...] 01/07/2024 11:24:46 AM Ordering Provider: LARRY Geronimo [facility] .GFRon 12-29-2023 GFR 54 ml/min/1.73sqm [facility] Comment on above: Result Comment: GFR [...] Performed By: #### G FR, BMP, CAION ####[facility] [place], [place] [address] GFR Non- 44 ml/min/1.73sqm Normal [facility] Comment on above: Result Comment: GFR [...] Performed By: #### G FR BMP, CAION ####[address] [address] BMPon 12-29-2023 BUN/Creatinine Ratio 20 ratio Normal 7-[address] [facility] Comment on above: Performed By: #### Francoise FR BMP, CAION ####[place] [address] [place], [place] [address] Calcium [Mass/Vol] 10.3 mg/dL High 8.4-10.2 [facility] Comment on above: Performed By: #### Francoise FR, BMP, CAION ####[place] [address] [place], [place] [address] Chloride [Moles/Vol] 104 mmol/L Normal 98-[address] [facility] Comment on above: Performed By: #### G FR, BMP, CAION ####[place] [address] [place], [place] [address] CO2 [Moles/Vol] 31 mmol/L Normal 23-31 [facility] Comment on above: Performed By: #### G FR, BMP, CAION ####[place] [address] [place], [place] [address] Creatinine [Mass/Vol] 1.16 mg/dL High 0.55-1.02 [facility] Comment on above: Result Comment: Test ing performed on Siemens Dimension EXL analyzer using a modified kinetic Dora technique. Performed By: #### LINDA SOLIS CAION ####[address] [place], [place] [address] Electrolyte Balance 7.0 mEq/L Normal 4.0-15.0 [facility] Comment on above: Performed By: #### LINDA SOLIS CAION ####[address] [place], [place] [address] Glucose [Mass/Vol] 92 mg/dL Normal 83-110 [facility] Comment on above: Performed By: #### LINDA SOLIS CAION ####[address] [place], [place] [address] Potassium [Moles/Vol] 4.2 mmol/L Normal 3.5-5.1 [facility] Comment on above: Performed By: #### LINDA SOLIS CAION ####[address] [place], [place] [address] Sodium [Moles/Vol] 142 mmol/L Normal 136-145 [facility] Comment on above: Performed By: #### LINDA SOLIS CAION ####[address] [place], [place] [address] Urea nitrogen [Mass/Vol] 23 mg/dL High 7-18 [facility] Comment on above: Performed By: #### LINDA SOLIS CAION ####[address] [place], [place] [address] CAIONon 12-29-2023 Calcium Ionized 1.27 mmol/L Normal 1.12-1.32 [facility] Comment on above: Performed By: #### LINDA SOLIS CAION ####[address] [place], [place] [address] LABORATORYOrdered By: SYSTEM SYSTEM on 12-29-2023 Calcium [...] 12/21/2023 4:21:17 PM Ordering Provider: LARRY Geronimo [facility] XR SPINE LUMBAR W/OBLIQUES 4 VIEWSon [...] 12/21/2023 4:34:05 PM Ordering Provider: LARRY Geronimo [facility] B12on 12-16-2023 Cobalamin (Vitamin B12) [Mass/Vol] 509 pg/mL Normal 211-911 [facility] Comment on above: Performed By: #### F ES, FERR ####[place] [address]#### B12, FOL ####[place] [address] FOLon 12-16-2023 Folate >48.00 High 5.38-24.00 [facility] Comment on above: Performed By: #### F ES, FERR ####[place] [address]#### B12, FOL ####[place] [address] .Auto Diffon 12-15-2023 Basophil, Absolute 0.1 10 3/mcL Normal 0.0-0.[address] [facility] Comment on above: Performed By: #### C MP, ADIFF, CBC, GFR, PBNP, ANEU #### [address] [address] Basophils/100 WBC (Bld) 1.1 % Normal 0.0-2.5 [facility] Comment on above: Performed By: #### C MP, ADIFF, CBC, GFR, PBNP, ANEU #### [address] [address] Eosinophil, Absolute 0.1 10 3/mcL Normal 0.0-0.7 [facility] Comment on above: Performed By: #### C MP, ADIFF, CBC, GFR, PBNP, ANEU #### [address] [address] Eosinophils/100 WBC (Bld) 1.4 % Normal 0.0-7.0 [facility] Comment on above: Performed By: #### C MP, ADIFF, CBC, GFR, PBNP, ANEU #### [address] [address] Lymphocyte, Absolute 1.7 10 3/mcL Normal 0.9-4.3 [facility] Comment on above: Performed By: #### C MP, ADIFF, CBC, GFR, PBNP, ANEU #### [address] [address] Lymphocytes/100 WBC (Bld) 20.9 % Normal 20.0-40.0 [facility] Comment on above: Performed By: #### C MP, ADIFF, CBC, GFR, PBNP, ANEU #### [address] [address] Monocyte, Absolute 0.5 10 3/mcL Normal 0.1-1.[address] [facility] Comment on above: Performed By: #### C MP, ADIFF, CBC, GFR, PBNP, ANEU #### [address] [address] Monocytes/100 WBC (Bld) 6.0 % Normal 2.0-13.0 [facility] Comment on above: Performed By: #### C MP, ADIFF, CBC, GFR, PBNP, ANEU #### [address] [address] Neutrophils/100 WBC (Bld) 70.6 % Normal 50.0-75.0 [facility] Comment on above: Performed By: #### C MP, ADIFF, CBC, GFR, PBNP, ANEU #### [address] [address] .GFRon 12-15-2023 GFR 62 ml/min/1.73sqm Normal [facility] Comment on above: Result Comment: GFR [...] MP, ADIFF, CBC, GFR, PBNP, ANEU #### [address] [address] GFR Non- 52 ml/min/1.73sqm Normal [facility] Comment on above: Result Comment: GFR [...] MP, ADIFF, CBC, GFR, PBNP, ANEU #### [address] [address] .NEUABSon 12-15-2023 Neutrophil, Absolute 5.8 10 3/mcL Normal 2.3-8.1 [facility] Comment on above: Performed By: #### C MP, ADIFF, CBC, GFR, PBNP, ANEU #### [address] [address] CBCon 12-15-2023 Erythrocyte distribution width (RBC) [Ratio] 14.2 % Normal 11.5-15.5 [facility] Comment on above: Performed By: #### C MP, ADIFF, CBC, GFR, PBNP, ANEU #### [address] [address] Hematocrit (Bld) [Volume fraction] 34.6 % Normal 34.0-46.0 [facility] Comment on above: Performed By: #### C MP, ADIFF, CBC, GFR, PBNP, ANEU #### [address] [address] Hgb 11.7 G/dL Low 12.0-16.0 [facility] Comment on above: Performed By: #### C MP, ADIFF, CBC, GFR, PBNP, ANEU #### [address] [address] MCH (RBC) [Entitic mass] 28.7 pg Normal 27.0-33.0 [facility] Comment on above: Performed By: #### C MP, ADIFF, CBC, GFR, PBNP, ANEU #### [address] [address] MCHC 33.9 G/dL Normal 32.0-36.0 [facility] Comment on above: Performed By: #### C MP, ADIFF, CBC, GFR, PBNP, ANEU #### [address] [address] MCV (RBC) [Entitic vol] 84.8 fL Normal 80.0-99.0 [facility] Comment on above: Performed By: #### C MP, ADIFF, CBC, GFR, PBNP, ANEU #### [address] [address] Platelet 363 10 3/mcL Normal 150-450 [facility] Comment on above: Performed By: #### C MP, ADIFF, CBC, GFR, PBNP, ANEU #### [address] [address] Platelet mean volume (Bld) [Entitic vol] 7.4 fL Normal 6.6-10.5 [facility] Comment on above: Performed By: #### C MP, ADIFF, CBC, GFR, PBNP, ANEU #### [place] [address] RBC 4.08 10 6/mcL Low 4.10-5.30 [facility] Comment on above: Performed By: #### C MP, ADIFF, CBC, GFR, PBNP, ANEU #### [place] [address] WBC 8.3 10 3/mcL Normal 4.5-10.8 [facility] Comment on above: Performed By: #### C MP, ADIFF, CBC, GFR, PBNP, ANEU #### [place] [id number] CMPon 12-15-2023 Albumin Level 3.9 G/dL Normal 3.4-4.8 [facility] Comment on above: Performed By: #### C MP, ADIFF, CBC, GFR, PBNP, ANEU #### [address] [address] Albumin/Globulin [Mass ratio] 1.4 {ratio} Normal 1.1-2.5 [facility] Comment on above: Performed By: #### C MP, ADIFF, CBC, GFR, PBNP, ANEU #### [address] [address] ALP [Catalytic activity/Vol] 72 U/L Normal 40-135 [facility] Comment on above: Performed By: #### C MP, ADIFF, CBC, GFR, PBNP, ANEU #### [address] [address] ALT [Catalytic activity/Vol] 26 U/L Normal 14-59 [facility] Comment on above: Performed By: #### C MP, ADIFF, CBC, GFR, PBNP, ANEU #### [address] [address] AST [Catalytic activity/Vol] 18 U/L Normal 10-40 [facility] Comment on above: Performed By: #### C MP, ADIFF, CBC, GFR, PBNP, ANEU #### [address] [address] Bili Total 0.4 mg/dL Normal 0.2-1.0 [facility] Comment on above: Result Comment: Use of this assay is not recommended for patients undergoing treatment with eltrombopag due to the potential for falsely elevated results. Performed By: #### C MP, ADIFF, CBC, GFR, PBNP, ANEU #### [address] [address] BUN/Creatinine Ratio 20 ratio Normal 7-[address] [facility] Comment on above: Performed By: #### C MP, ADIFF, CBC, GFR, PBNP, ANEU #### [address] [address] Calcium [Mass/Vol] 10.8 mg/dL High 8.4-10.2 [facility] Comment on above: Performed By: #### C MP, ADIFF, CBC, GFR, PBNP, ANEU #### [address] [address] Chloride [Moles/Vol] 104 mmol/L Normal 98-[address] [facility] Comment on above: Performed By: #### C MP, ADIFF, CBC, GFR, PBNP, ANEU #### [address] [address] CO2 [Moles/Vol] 30 mmol/L Normal 23-31 [facility] Comment on above: Performed By: #### C MP, ADIFF, CBC, GFR, PBNP, ANEU #### [address] [address] Creatinine [Mass/Vol] 1.02 mg/dL Normal 0.55-1.02 [facility] Comment on above: Result Comment: Test ing performed on Siemens Dimension EXL analyzer using a modified kinetic Dora technique. Performed By: #### C MP, ADIFF, CBC, GFR, PBNP, ANEU #### [address] [address] Electrolyte Balance 7.0 mEq/L Normal 4.0-15.0 [facility] Comment on above: Performed By: #### C MP, ADIFF, CBC, GFR, PBNP, ANEU #### [address] [address] Globulin 2.8 G/dL Normal [facility] Comment on above: Performed By: #### C MP, ADIFF, CBC, GFR, PBNP, ANEU #### [address] [address] Glucose [Mass/Vol] 105 mg/dL Normal 83-110 [facility] Comment on above: Performed By: #### C MP, ADIFF, CBC, GFR, PBNP, ANEU #### [address] [address] Potassium [Moles/Vol] 4.2 mmol/L Normal 3.5-5.1 [facility] Comment on above: Performed By: #### C MP, ADIFF, CBC, GFR, PBNP, ANEU #### [address] [address] Sodium [Moles/Vol] 141 mmol/L Normal 136-145 [facility] Comment on above: Performed By: #### C MP, ADIFF, CBC, GFR, PBNP, ANEU #### [address] [address] Total Protein 6.7 G/dL Normal 6.4-8.2 [facility] Comment on above: Performed By: #### C MP, ADIFF, CBC, GFR, PBNP, ANEU #### [address] [address] Urea nitrogen [Mass/Vol] 20 mg/dL High 7-18 [facility] Comment on above: Performed By: #### C MP, ADIFF, CBC, GFR, PBNP, ANEU #### [facility] [address] [place], [place] [address] Lucretia 12-15-2023 Ferritin [Mass/Vol] 197.0 ng/mL Normal 8.0-252.[address] [facility] Comment on above: Performed By: #### F ES, FERR ####[address] [address]#### B12, FOL ####[address] [address] FESon 12-15-2023 Iron [Mass/Vol] 44 ug/dL Low 50-170 [facility] Comment on above: Performed By: #### F ES, FERR ####[place] [address]#### B12, FOL ####[place] [address] Iron Sat 15 % Normal [facility] Comment on above: Performed By: #### F ES, FERR ####[place] [address]#### B12, FOL ####[place] [address] TIBC 300 mcg/dL Normal 250-450 [facility] Comment on above: Performed By: #### F ES, FERR ####[place] [address]#### B12, FOL ####[place] [address] LABORATORYOrdered By: SYSTEM SYSTEM on 12-15-2023 Albumin [...] B (Bld) [Mass/Vol] 1968 pg/mL High 0-450 [facility] Comment on above: Result Comment: NT-p roBNP results of less than 300 pg/mL effectively rules out acute congestive heart failure with 99% negative predictive value. Performed By: #### C MP, ADIFF, CBC, GFR, PBNP, ANEU ####[address] [place], [place] [address] LABORATORYOrdered By: Domingo Masterson on 12-09-2023 Appearance [...] SS UAon 12-09-2023 Color (U) Yellow Normal [facility] Comment on above: Performed By: #### U A ####[address] [place], [place] [address] Glucose (U) [Mass/Vol] Negative Normal Negative [facility] Comment on above: Performed By: #### U A ####[address] [place], [place] [address] Ketones Ql (U) Negative Normal Negative [facility] Comment on above: Performed By: #### U A ####[place] [address] [place] [address] UA Appear Clear Normal Clear [facility] Comment on above: Performed By: #### U A ####[address] [place] [address] UA Blood Negative Normal Negative [facility] Comment on above: Performed By: #### U A ####[place] [address] [place] [address] UA Leuk Est Negative Normal Negative [facility] Comment on above: Performed By: #### U A ####[place] [address] [place] [address] UA Nitrite Negative Normal Negative [facility] Comment on above: Performed By: #### U A ####[place] [address] UA pH 7.5 Normal 5.0 - 8.0 [facility] Comment on above: Performed By: #### U A ####[place] [address] UA Protein Negative Normal Negative [facility] Comment on above: Performed By: #### U A ####[place] [address] [place] [address] UA Spec Grav 1.020 Normal 1.015-1.025 [facility] Comment on above: Performed By: #### U A ####[place] [address] [address] UA Specimen Type Clean Catch Normal [facility] Comment on above: Performed By: #### U A ####[place] [address] [place] [address] UA Urobilinogen 0.2 E.U./dL Normal 0.2-1.0 [facility] Comment on above: Performed By: #### U A ####[place] [place] [address] Urobilinogen (U) [Mass/Vol] Negative Normal Negative [facility] Comment on above: Performed By: #### U A ####[facility] [place], [place] [address] XR HIP RIGHT W/PELVIS 4 VIEW Son [...] 11/29/2023 11:51:51 AM Ordering Provider: SONNY Geronimo [facility] .GFRon 07-08-2023 GFR 63 ml/min/1.73sqm Normal [facility] ([place]) Comment on above: Result Comment: GFR Population [...] FR, A1C, ANEU, CBC, ADIFF, BMP #### [facility] [address] [place] [place], [place] [address] GFR Non- 52 ml/min/1.73sqm Normal [facility] ([place]) Comment on above: Result Comment: GFR Population [...] FR, A1C, ANEU, CBC, ADIFF, BMP #### [address] [address] BMPon 07-08-2023 BUN/Creatinine Ratio 19 ratio Normal 7-27 [facility] ([place]) Comment on above: Performed By: #### G FR, A1C, ANEU, CBC, ADIFF, BMP #### [address] [address] Calcium [Mass/Vol] 9.6 mg/dL Normal 8.4-10.2 [facility] ([place]) Comment on above: Performed By: #### G FR, A1C, ANEU, CBC, ADIFF, BMP #### [address] [address] Chloride [Moles/Vol] 106 mmol/L Normal 98-107 [facility] ([place] Comment on above: Performed By: #### G FR, A1C, ANEU, CBC, ADIFF, BMP #### [address] [address] CO2 [Moles/Vol] 29 mmol/L Normal 23-31 [facility] ([place]) Comment on above: Performed By: #### G FR, A1C, ANEU, CBC, ADIFF, BMP #### [address] [address] Creatinine [Mass/Vol] 1.02 mg/dL Normal 0.55-1.02 [facility] ([place]) Comment on above: Performed By: #### G FR, A1C, ANEU, CBC, ADIFF, BMP #### [address] [address] Electrolyte Balance 9.0 mEq/L Normal 4.0-15.0 [facility] ([place]) Comment on above: Performed By: #### G FR, A1C, ANEU, CBC, ADIFF, BMP #### [address] [address] Glucose [Mass/Vol] 118 mg/dL High 83-110 [facility] ([place]) Comment on above: Performed By: #### G FR, A1C, ANEU, CBC, ADIFF, BMP #### [address] [address] Potassium [Moles/Vol] 3.7 mmol/L Normal 3.5-5.1 [facility] ([place] Comment on above: Performed By: #### G FR, A1C, ANEU, CBC, ADIFF, BMP #### [address] [address] Sodium [Moles/Vol] 144 mmol/L Normal 136-145 [facility] ([place] Comment on above: Performed By: #### G FR, A1C, ANEU, CBC, ADIFF, BMP #### [address] [address] Urea nitrogen [Mass/Vol] 19 mg/dL High 7-18 [facility] ([place]) Comment on above: Performed By: #### G FR, A1C, ANEU, CBC, ADIFF, BMP #### [address] [address] LABORATORYOrdered By: SYSTEM SYSTEM on 07-08-2023 Calcium [...] 04/14/2023 10:35:22 AM Ordering Provider: MAHAD Geronimo [facility]) METon 04-14-2023 Methylmalonic Acid 340 nmol/L Normal 0-378 [facility]) Comment on above: Result Comment: This test was developed and its performance characteristics determined by [facility] It has not been cleared or approved by the Food and Drug Administration. Performed At: [address] [id number] Hima Lieberman MD Ph:[phone] Performed By: #### G FR, A1C, ANEU, CBC, ADIFF, BMP #### [place] [address] [place], [place] [address] B12on 04-07-2023 Cobalamin (Vitamin B12) [Mass/Vol] 600 pg/mL Normal 211-911 [facility]) Comment on above: Performed By: #### F OL, B12 #### [place] [address] #### FT4, [id number], TSH #### [address] [address] FOLon 04-07-2023 Folate >48.00 High 5.38-24.00 [facility] ([place]) Comment on above: Performed By: #### F OL, B12 #### [place] [address] #### FT4, [id number], TSH #### [address] [address] FT4on 04-07-2023 Free T4 [Mass/Vol] 0.99 ng/dL Normal 0.76-1.46 [facility] ([place]) Comment on above: Performed By: #### F OL, B12 #### [place] [address] #### FT4, 225881, TSH #### [address] [address] LABORATORYOrdered By: SYSTEM SYSTEM on 04-07-2023 Cobalamin [...] Qn 1.65 m[IU]/L Normal 0.36-3.74 [facility] ([place]) Comment on above: Performed By: #### F OL, B12 #### [place] [address] #### FT4, 819056, TSH #### [address] [address] .Auto Diffon 03-10-2023 Basophil, Absolute 0.1 10 3/mcL Normal 0.0-0.2 [facility] ([place]) Comment on above: Performed By: #### G FR, A1C, ANEU, CBC, ADIFF, BMP #### [address] [address] Basophils/100 WBC (Bld) 1.2 % Normal 0.0-2.5 [facility] ([place]) Comment on above: Performed By: #### G FR, A1C, ANEU, CBC, ADIFF, BMP #### [address] [address] Eosinophil, Absolute 0.1 10 3/mcL Normal 0.0-0.4 [facility] ([place]) Comment on above: Performed By: #### G FR, A1C, ANEU, CBC, ADIFF, BMP #### [address] [address] Eosinophils/100 WBC (Bld) 1.6 % Normal 0.0-7.0 [facility] ([place]) Comment on above: Performed By: #### G FR, A1C, ANEU, CBC, ADIFF, BMP #### [address] [address] Lymphocyte, Absolute 1.9 10 3/mcL Normal 0.8-3.9 [facility] ([place]) Comment on above: Performed By: #### G FR, A1C, ANEU, CBC, ADIFF, BMP #### [address] [address] Lymphocytes/100 WBC (Bld) 23.7 % Normal 10.0-50.0 [facility] ([place]) Comment on above: Performed By: #### G FR, A1C, ANEU, CBC, ADIFF, BMP #### [address] [address] Monocyte, Absolute 0.6 10 3/mcL Normal 0.2-1.0 [facility] ([place]) Comment on above: Performed By: #### G FR, A1C, ANEU, CBC, ADIFF, BMP #### [address] [address] Monocytes/100 WBC (Bld) 7.8 % Normal 1.7-13.0 [facility] ([place]) Comment on above: Performed By: #### G FR, A1C, ANEU, CBC, ADIFF, BMP #### [address] [address] Neutrophils/100 WBC (Bld) 65.7 % Normal 37.0-80.0 [facility] ([place]) Comment on above: Performed By: #### G FR, A1C, ANEU, CBC, ADIFF, BMP #### [address] [address] .GFRon 03-10-2023 GFR 63 ml/min/1.73sqm Normal [facility] ([place]) Comment on above: Result Comment: GFR Population [...] FR, A1C, ANEU, CBC, ADIFF, BMP #### [address] [address] GFR Non- 52 ml/min/1.73sqm Normal [facility] ([place]) Comment on above: Result Comment: GFR Population [...] FR, A1C, ANEU, CBC, ADIFF, BMP #### [address] [address] .NEUABSon 03-10-2023 Neutrophil, Absolute 5.2 10 3/mcL Normal 2.9-6.2 [facility] ([place]) Comment on above: Performed By: #### G FR, A1C, ANEU, CBC, ADIFF, BMP #### [place] [address] A1Con 03-10-2023 HbA1c (Bld) [Mass fraction] 5.6 % Normal 4.3-6.4 [facility] ([place]) Comment on above: Performed By: #### G FR, A1C, ANEU, CBC, ADIFF, BMP #### [place] [address] CBCon 03-10-2023 Erythrocyte distribution width (RBC) [Ratio] 14.7 % High 11.5-14.5 [facility] ([place]) Comment on above: Performed By: #### G FR, A1C, ANEU, CBC, ADIFF, BMP #### [place] [id number] Hematocrit (Bld) [Volume fraction] 35.6 % Low 37.0-47.0 [facility] ([place]) Comment on above: Performed By: #### G FR, A1C, ANEU, CBC, ADIFF, BMP #### [place] [address] Hgb 12.1 G/dL Normal 12.0-16.0 [facility] ([place]) Comment on above: Performed By: #### G FR, A1C, ANEU, CBC, ADIFF, BMP #### [place] [id number] MCH (RBC) [Entitic mass] 27.8 pg Normal 27.0-31.2 [facility] ([place]) Comment on above: Performed By: #### G FR, A1C, ANEU, CBC, ADIFF, BMP #### [address] [address] MCHC 34.1 G/dL Normal 33.0-37.0 [facility] ([place]) Comment on above: Performed By: #### G FR, A1C, ANEU, CBC, ADIFF, BMP #### [address] [address] MCV (RBC) [Entitic vol] 81.7 fL Normal 80.0-94.0 [facility] ([place]) Comment on above: Performed By: #### G FR, A1C, ANEU, CBC, ADIFF, BMP #### [address] [address] Platelet 300 10 3/mcL Normal 130-400 [facility] ([place]) Comment on above: Performed By: #### G FR, A1C, ANEU, CBC, ADIFF, BMP #### [address] [address] Platelet mean volume (Bld) [Entitic vol] 8.0 fL Normal 7.4-10.4 [facility] ([place]) Comment on above: Performed By: #### G FR, A1C, ANEU, CBC, ADIFF, BMP #### [address] [address] RBC 4.35 10 6/mcL Normal 4.20-5.40 [facility] ([place]) Comment on above: Performed By: #### G FR, A1C, ANEU, CBC, ADIFF, BMP #### [address] [address] WBC 8.0 10 3/mcL Normal 4.6-10.8 [facility] ([place]) Comment on above: Performed By: #### G FR, A1C, ANEU, CBC, ADIFF, BMP #### [address] [address] CMPon 03-10-2023 Chloride [Moles/Vol] 102 mmol/L Normal 98-107 [facility] ([place]) Comment on above: Performed By: #### G FR, A1C, ANEU, CBC, ADIFF, BMP #### [address] [address] Electrolyte Balance 10.0 mEq/L Normal 4.0-15.0 [facility] ([place]) Comment on above: Performed By: #### G FR, A1C, ANEU, CBC, ADIFF, BMP #### [address] [address] Potassium [Moles/Vol] 4.3 mmol/L Normal 3.5-5.1 [facility] ([place]) Comment on above: Performed By: #### G FR, A1C, ANEU, CBC, ADIFF, BMP #### [address] [address] Sodium [Moles/Vol] 141 mmol/L Normal 136-145 [facility] ([place]) Comment on above: Performed By: #### G FR, A1C, ANEU, CBC, ADIFF, BMP #### [address] [address] Albumin Level 3.7 G/dL Normal 3.4-4.8 [facility] ([place]) Comment on above: Performed By: #### G FR, A1C, ANEU, CBC, ADIFF, BMP #### [address] [address] Albumin/Globulin [Mass ratio] 1.1 {ratio} Normal 1.1-2.5 [facility] ([place]) Comment on above: Performed By: #### G FR, A1C, ANEU, CBC, ADIFF, BMP #### [address] [address] ALP [Catalytic activity/Vol] 79 U/L Normal 40-135 [facility] ([place]) Comment on above: Performed By: #### G FR, A1C, ANEU, CBC, ADIFF, BMP #### [address] [address] ALT [Catalytic activity/Vol] 24 U/L Normal 14-59 [facility] ([place]) Comment on above: Performed By: #### G FR, A1C, ANEU, CBC, ADIFF, BMP #### [address] [address] AST [Catalytic activity/Vol] 12 U/L Normal 10-40 [facility] ([place]) Comment on above: Performed By: #### G FR, A1C, ANEU, CBC, ADIFF, BMP #### [address] [address] Bili Total 0.3 mg/dL Normal 0.2-1.0 [facility] ([place]) Comment on above: Result Comment: Use of this assay is not recommended for patients undergoing treatment with eltrombopag due to the potential for falsely elevated results. Performed By: #### G FR, A1C, ANEU, CBC, ADIFF, BMP #### [address] [address] BUN/Creatinine Ratio 25 ratio Normal 7-27 [facility] ([place]) Comment on above: Performed By: #### G FR, A1C, ANEU, CBC, ADIFF, BMP #### [address] [address] Calcium [Mass/Vol] 10.1 mg/dL Normal 8.4-10.2 [facility] ([place]) Comment on above: Performed By: #### G FR, A1C, ANEU, CBC, ADIFF, BMP #### [address] [address] CO2 [Moles/Vol] 29 mmol/L Normal 23-31 [facility] ([place]) Comment on above: Performed By: #### G FR, A1C, ANEU, CBC, ADIFF, BMP #### [address] [address] Creatinine [Mass/Vol] 1.02 mg/dL Normal 0.55-1.02 [facility] ([place]) Comment on above: Performed By: #### G FR, A1C, ANEU, CBC, ADIFF, BMP #### [address] [address] Globulin 3.3 G/dL Normal [facility] ([place]) Comment on above: Performed By: #### G FR, A1C, ANEU, CBC, ADIFF, BMP #### [address] [address] Glucose [Mass/Vol] 118 mg/dL High 83-110 [facility] ([place]) Comment on above: Performed By: #### G FR, A1C, ANEU, CBC, ADIFF, BMP #### [address] [address] Total Protein 7.0 G/dL Normal 6.4-8.2 [facility] ([place]) Comment on above: Performed By: #### G FR, A1C, ANEU, CBC, ADIFF, BMP #### [address] [address] Urea nitrogen [Mass/Vol] 26 mg/dL High 7-18 [facility] ([place]) Comment on above: Performed By: #### G FR, A1C, ANEU, CBC, ADIFF, BMP #### [address] [address] LIPIDon 03-10-2023 Cholesterol [Mass/Vol] 214 mg/dL High 0-200 [facility] ([place]) Comment on above: Result Comment: Chol esterol Reference Interval: Less than 200 Desirable 200-239 Borderline high risk 240 and above High risk Performed By: #### G FR, A1C, ANEU, CBC, ADIFF, BMP #### [address] [address] Cholesterol in HDL [Mass/Vol] 62 mg/dL High 40-60 [facility] ([place]) Comment on above: Performed By: #### G FR, A1C, ANEU, CBC, ADIFF, BMP #### [address] [address] Cholesterol in LDL [Mass/Vol] 111 mg/dL Normal 0-130 [facility] ([place]) Comment on above: Performed By: #### G FR, A1C, ANEU, CBC, ADIFF, BMP #### [address] [address] Triglyceride [Mass/Vol] 205 mg/dL High 0-150 [facility] ([place]) Comment on above: Result Comment: Trig lyceride Reference Interval: Less than 150 Normal 150-199 Borderline high risk 200-499 High risk 500 or higher Very high risk Performed By: #### G FR, A1C, ANEU, CBC, ADIFF, BMP #### [place] [address] PHOSon 03-10-2023 Phosphate [Mass/Vol] 3.2 mg/dL Normal 2.3-4.1 [facility] ([place]) Comment on above: Performed By: #### G FR, A1C, ANEU, CBC, ADIFF, BMP #### [place] [address] PTHon 03-10-2023 PTH, Intact 78.2 pg/mL Normal 18.5-88.0 [facility] ([place]) Comment on above: Performed By: #### G FR, A1C, ANEU, CBC, ADIFF, BMP #### [place] [address] VIDHon 03-10-2023 Vit. D 25-Hydroxy 32.1 ng/mL Normal [facility] ([place]) Comment on above: Result Comment: Inte rpretive Values Based on Total 25(OH) Vitamin D: Deficient <20 ng/mL Insufficient 20 - <30 ng/mL Sufficient 30-100 ng/mL Performed By: #### G FR, A1C, ANEU, CBC, ADIFF, BMP #### [place] [address] BD BONE DENSITY DEXA AXIAL S KELETONon [...] AM Ordering Provider: LARRY Geronimo [facility] ([place]) .Auto Diffon 09-16-2022 Basophil, Absolute 0.1 10 3/mcL Normal 0.0-0.2 [facility] ([place]) Comment on above: Performed By: #### G FR, A1C, ANEU, CBC, ADIFF, BMP #### [address] [address] Basophils/100 WBC (Bld) 0.8 % Normal 0.0-2.5 [facility] ([place]) Comment on above: Performed By: #### G FR, A1C, ANEU, CBC, ADIFF, BMP #### [address] [address] Eosinophil, Absolute 0.2 10 3/mcL Normal 0.0-0.4 [facility] ([place]) Comment on above: Performed By: #### G FR, A1C, ANEU, CBC, ADIFF, BMP #### [address] [address] Eosinophils/100 WBC (Bld) 2.1 % Normal 0.0-7.0 [facility] ([place]) Comment on above: Performed By: #### G FR, A1C, ANEU, CBC, ADIFF, BMP #### [address] [address] Lymphocyte, Absolute 2.0 10 3/mcL Normal 0.8-3.9 [facility] ([place]) Comment on above: Performed By: #### G FR, A1C, ANEU, CBC, ADIFF, BMP #### [address] [address] Lymphocytes/100 WBC (Bld) 22.9 % Normal 10.0-50.0 [facility] ([place]) Comment on above: Performed By: #### G FR, A1C, ANEU, CBC, ADIFF, BMP #### [address] [address] Monocyte, Absolute 0.5 10 3/mcL Normal 0.2-1.0 [facility] ([place]) Comment on above: Performed By: #### G FR, A1C, ANEU, CBC, ADIFF, BMP #### [address] [address] Monocytes/100 WBC (Bld) 6.4 % Normal 1.7-13.0 [facility] ([place]) Comment on above: Performed By: #### G FR, A1C, ANEU, CBC, ADIFF, BMP #### [address] [address] Neutrophils/100 WBC (Bld) 67.8 % Normal 37.0-80.0 [facility] ([place]) Comment on above: Performed By: #### G FR, A1C, ANEU, CBC, ADIFF, BMP #### [address] [address] .GFRon 09-16-2022 GFR Non- 48 ml/min/1.73sqm Normal [facility] ([place]) Comment on above: Result Comment: GFR Population [...] FR, A1C, ANEU, CBC, ADIFF, BMP #### [address] [address] GFR 59 ml/min/1.73sqm Normal [facility] ([place]) Comment on above: Result Comment: GFR Population [...] FR, A1C, ANEU, CBC, ADIFF, BMP #### [address] [address] .NEUABSon 09-16-2022 Neutrophil, Absolute 5.8 10 3/mcL Normal 2.9-6.2 [facility] ([place]) Comment on above: Performed By: #### G FR, A1C, ANEU, CBC, ADIFF, BMP #### [address] [address] A1Con 09-16-2022 HbA1c (Bld) [Mass fraction] 5.7 % Normal 4.3-6.4 [facility] ([place]) Comment on above: Performed By: #### G FR, A1C, ANEU, CBC, ADIFF, BMP #### [address] [address] BMPon 09-16-2022 BUN/Creatinine Ratio 27 ratio Normal 7-27 [facility] ([place]) Comment on above: Performed By: #### G FR, A1C, ANEU, CBC, ADIFF, BMP #### [address] [address] Calcium [Mass/Vol] 9.8 mg/dL Normal 8.4-10.2 [facility] ([place]) Comment on above: Performed By: #### G FR, A1C, ANEU, CBC, ADIFF, BMP #### [address] [address] Chloride [Moles/Vol] 106 mmol/L Normal 98-107 [facility] ([place]) Comment on above: Performed By: #### G FR, A1C, ANEU, CBC, ADIFF, BMP #### [address] [address] CO2 [Moles/Vol] 29 mmol/L Normal 23-31 [facility] ([place]) Comment on above: Performed By: #### G FR, A1C, ANEU, CBC, ADIFF, BMP #### [address] [address] Creatinine [Mass/Vol] 1.08 mg/dL High 0.55-1.02 [facility] ([place]) Comment on above: Performed By: #### G FR, A1C, ANEU, CBC, ADIFF, BMP #### [address] [address] Electrolyte Balance 8.0 mEq/L Normal 4.0-15.0 [facility] ([place]) Comment on above: Performed By: #### G FR, A1C, ANEU, CBC, ADIFF, BMP #### [address] [address] Glucose [Mass/Vol] 125 mg/dL High 83-110 [facility] ([place]) Comment on above: Performed By: #### G FR, A1C, ANEU, CBC, ADIFF, BMP #### [address] [address] Potassium [Moles/Vol] 4.5 mmol/L Normal 3.5-5.1 [facility] ([place]) Comment on above: Performed By: #### G FR, A1C, ANEU, CBC, ADIFF, BMP #### [address] [address] Sodium [Moles/Vol] 143 mmol/L Normal 136-145 [facility] ([place]) Comment on above: Performed By: #### G FR, A1C, ANEU, CBC, ADIFF, BMP #### [address] [address] Urea nitrogen [Mass/Vol] 29 mg/dL High 7-18 [facility] ([place]) Comment on above: Performed By: #### G FR, A1C, ANEU, CBC, ADIFF, BMP #### [address] [address] CBCon 09-16-2022 Erythrocyte distribution width (RBC) [Ratio] 14.6 % High 11.5-14.5 [facility] ([place]) Comment on above: Performed By: #### G FR, A1C, ANEU, CBC, ADIFF, BMP #### [address] [address] Hematocrit (Bld) [Volume fraction] 33.9 % Low 37.0-47.0 [facility] ([place]) Comment on above: Performed By: #### G FR, A1C, ANEU, CBC, ADIFF, BMP #### [address] [address] Hgb 11.2 G/dL Low 12.0-16.0 [facility] ([place]) Comment on above: Performed By: #### G FR, A1C, ANEU, CBC, ADIFF, BMP #### [address] [address] MCH (RBC) [Entitic mass] 27.0 pg Normal 27.0-31.2 [facility] ([place]) Comment on above: Performed By: #### G FR, A1C, ANEU, CBC, ADIFF, BMP #### [address] [address] MCHC 33.1 G/dL Normal 33.0-37.0 [facility] ([place]) Comment on above: Performed By: #### G FR, A1C, ANEU, CBC, ADIFF, BMP #### [address] [address] MCV (RBC) [Entitic vol] 81.6 fL Normal 80.0-94.0 [facility] ([place]) Comment on above: Performed By: #### G FR, A1C, ANEU, CBC, ADIFF, BMP #### [address] [address] Platelet 275 10 3/mcL Normal 130-400 [facility] ([place]) Comment on above: Performed By: #### G FR, A1C, ANEU, CBC, ADIFF, BMP #### [address] [address] Platelet mean volume (Bld) [Entitic vol] 8.2 fL Normal 7.4-10.4 [facility] ([place]) Comment on above: Performed By: #### G FR, A1C, ANEU, CBC, ADIFF, BMP #### [address] [address] RBC 4.15 10 6/mcL Low 4.20-5.40 [facility] ([place]) Comment on above: Performed By: #### G FR, A1C, ANEU, CBC, ADIFF, BMP #### [address] [address] WBC 8.5 10 3/mcL Normal 4.6-10.8 [facility] ([place]) Comment on above: Performed By: #### G FR, A1C, ANEU, CBC, ADIFF, BMP #### [address] [address] LABORATORYOrdered By: SYSTEM SYSTEM on 06-19-2022 Basophils [...] CNPNon 06-03-2022 CNPN Telephone (TONYA) CT DALTON ([id number]) 1940 F Date Time Provider Department 06/03/22 PAULA ALANIZ During your visit today, we recorded the following information about you: Brenton Jennings RN 06/03/2022 11:29 AM Signed Received a request from [facility] for all of Ct's left breast cancer treatment medical records. Faxed the request to medical records on [facility], fax confirmation sheet received. Brenton Jennings [...] Encounter Status:Closed by BRENTON JENNINGS on 06/03/22 [facility] LABORATORYOrdered By: SYSTEM SYSTEM on [...] CNOV Office Visit (SWS ) CT DALTON ([id number]) 1940 F Date Time Provider Department 04/06/22 [...] needle core breast biopsies on 03/23/2022 at [facility]. Findings of fat necrosis, inflammation [...] once daily. (more content not included)... Normal [facility] LABORATORYOrdered By: SYSTEM SYSTEM on 03-09-2022 [...] 12-04 Culture Urine No growth to date [facility] Microscopic examination of blood, culture Culture has been received in lab and is no growth to date. Routine cultures are held for 5 days. [facility] LABORATORYOrdered By: Lab KATIE Webber on [...] 1.006-1.029 AM [facility] Subsection Urobilinogen Qn (U) [id number] {Sara'U}/dL Invalid Interpretation Code 0.2-1.0E.U. /dL AM [...] on above: Result Comment: Ales[address] [place], [place] [address] Perf Loc - POCT Tested at AM Invalid Interpretation Code AM [facility] Subsection Comment on above: Result Comment: A[address] [place], [place] [address] Perf Loc - POCT Tested at AM Invalid Interpretation Code AM [facility] Subsection Comment on above: Result Comment: A[address] [place], [place] [address] MRI BREAST WO/W IVCON BILon 03-01-2018 MRI BREAST WO/W IVCON DUNCAN * * *Final Report* * * DATE OF EXAM: Mar 01 2018 11:54AM [facility] 0773 - MRI BREAST WO/W IVCON DUNCAN / PROCEDURE REASON: N64.4-Mastodynia * * * * Physician Interpretation * * * * #[id number] - MRI BREAST WO/W IVCON DUNCAN BREAST MRI OF BOTH BREASTS: 03/01/2018 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 Short interval follow up of the lumpectomy site recommended per the prior MRI dated 05/18/2017. RESULT: Comparison is made to exam dated: 05/18/2017 breast MRI - [facility]. Interpretation of this MRI was correlated [...] Follow-up with ACR/NCCN guidelines. Td carlson/rafael:03/01/2018 14:15:08 Division Supervisor(s): RT Amanda(N)(MR), [facility] MRI BI-RADS: 2 Benign finding Multiple [...] Health, Family Medicine, and Medical/Surgical Oncology, the [facility] has carefully reviewed the data [...] their providers when to stop screening mammograms. Rag Production Worker: Rafael Transcribe Date/Time: Mar 01 2018 11:37A Dictated by : TD SANDERS MD This examination was interpreted and the report reviewed and electronically signed by: TD SANDERS MD on Mar 01 2018 2:15PM EST [id number] [facility] NURSING PROGon 03-01-2018 Protein mass conc HNO ID: [id number] Author: Carla Love (Rn) Kristopher Service: Radiology [...] Summers RN March 01, 2018 10:49 AM [facility] Clinical Summary: HMSPatient IDon 01-17-2018 OOP Invalid Interpretation Code [facility] Work Phone: Office Visit: Follow-up by sasha servin, Rm: [email or web address] 01-17-2018 NEGATED: Highlighted rowMRI (magnetic resonance imaging) history of the lumbar spine on 10/20/2013 at [place] Invalid Interpretation Code [facility] Work Phone: NEGATED: Highlighted rowProtein mass conc Done Invalid Interpretation Code [facility] Work Phone: MRI BREAST WO/W IVCON BILon 05-18-2017 MRI BREAST WO/W IVCON DUNCAN * * *Final Report* * * DATE OF EXAM: May 18 2017 2:32PM [facility] 0773 - MRI BREAST WO/W IVCON DUNCAN / PROCEDURE REASON: Z13.89-Encounter for screening for other disorder * * * * Physician Interpretation * * * * #[id number] - MRI BREAST WO/W IVCON DUNCAN BREAST [...] staff physician. Cricket Pineda M.D. ns,bb/rafael:05/18/2017 15:28:32 Division Supervisor: Cally SPEARS(Alex)(Jaenine), [facility] MRI BI-RADS: 3 Probably benign finding - short term interval follow-up recommended Rag Production Worker: Rafael Transcribe Date/Time: May 18 2017 2:15P Dictated by : MALLIKA PINEDA MD This examination was interpreted and the report reviewed and electronically signed by: CRICKET AMBRIZ MD on May 18 2017 3:28PM EST [id number] [facility] NURSING PROGon 05-18-2017 Protein mass conc HNO ID: [id number] Author: Ema (Rn) DONA Bai Service: PICC [...] 2017 TIME: 1:27 PM PAGER/CONTACT #: [phone] [facility] Vital Signs Date Time Vital Sign Value Performing Clinician Facility 08-26-2024 12:46-0400 Body height 167.[address] Warner Leos MD Work Phone: [facility] 07-24-2024 03:24-0400 Diastolic blood pressure 69 mm[Hg] Dr. Warner Leos MD Work Phone: [facility] 07-24-2024 03:24-0400 Heart rate 52 /min Dr. Warner Leos MD Work Phone: [facility] 07-24-2024 03:24-0400 SaO2% (BldA) [Mass fraction] 100 % Dr. Warner Leos MD Work Phone: [facility] 07-24-2024 03:24-0400 Systolic blood pressure 164 mm[Hg] Dr. Warner Leos MD Work Phone: [facility] 07-24-2024 01:24-0400 Body height 167.[address] Warner Leos MD Work Phone: [facility] 07-24-2024 01:24-0400 Body mass index (BMI) [Ratio] 28 kg/m2 Dr. Warner Leos MD Work Phone: [facility] 07-24-2024 01:24-0400 Body temperature 98 [degF] Dr. Warner Leos MD Work Phone: [facility] 07-24-2024 01:24-0400 Body weight 78.[address] Warner Leos MD Work Phone: [facility] 07-24-2024 01:24-0400 Respiratory rate 16 /min Dr. Warner Leos MD Work Phone: [facility] 02-10-2024 15:30-0500 Body temperature 97.52 [degF] ELDA DEL ROSARIO DOUBLE CUT OFF 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 [facility] 02-10-2024 15:30-0500 Diastolic Blood Pressure Non-Invasive 72 mm[Hg] ELDA DEL ROSARIO DOUBLE CUT OFF 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 [facility] 02-10-2024 15:30-0500 Heart rate 84 /min ELDA DEL ROSARIO DOUBLE CUT OFF 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 [facility] 02-10-2024 15:30-0500 Reason For Taking VItal Signs ELDA DEL ROSARIO DOUBLE CUT OFF 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 [facility] 02-10-2024 15:30-0500 Respiratory rate 16 /min ELDA DEL ROSARIO DOUBLE CUT OFF 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 [facility] 02-10-2024 15:30-0500 Systolic Blood Pressure Non-Invasive 146 mm[Hg] ELDA DEL ROSARIO DOUBLE CUT OFF 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 [facility] 02-10-2024 06:37-0500 Body temperature 97.34 [degF] ELDA DEL ROSARIO DOUBLE CUT OFF 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 [facility] 02-10-2024 06:37-0500 Diastolic Blood Pressure Non-Invasive 82 mm[Hg] ELDA DEL ROSARIO DOUBLE CUT OFF 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 [facility] 02-10-2024 06:37-0500 Heart rate 80 /min ELDA DEL ROSARIO DOUBLE CUT OFF 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 [facility] 02-10-2024 06:37-0500 Reason For Taking VItal Signs ELDA DEL ROSARIO DOUBLE CUT OFF 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 [facility] 02-10-2024 06:37-0500 Respiratory rate 14 /min ELDA DEL ROSARIO DOUBLE CUT OFF 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 [facility] 02-10-2024 06:37-0500 Systolic Blood Pressure Non-Invasive 148 mm[Hg] ELDA DEL ROSARIO DOUBLE CUT OFF 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 [facility] 02-10-2024 03:22-0500 Body temperature 97.52 [degF] ELDA DEL ROSARIO DOUBLE CUT OFF 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 [facility] 02-10-2024 03:22-0500 Diastolic Blood Pressure Non-Invasive 81 mm[Hg] ELDA DEL ROSARIO DOUBLE CUT OFF 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 [facility] 02-10-2024 03:22-0500 Heart rate 81 /min ELDA DEL ROSARIO DOUBLE CUT OFF 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 [facility] 02-10-2024 03:22-0500 Reason For Taking VItal Signs ELDA DEL ROSARIO DOUBLE CUT OFF 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 [facility] 02-10-2024 03:22-0500 Respiratory rate 14 /min ELDA DEL ROSARIO DOUBLE CUT OFF 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 [facility] 02-10-2024 03:22-0500 Systolic Blood Pressure Non-Invasive 156 mm[Hg] ELDA DEL ROSARIO DOUBLE CUT OFF 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 [facility] 02-09-2024 22:01-0500 Heart rate 74 /min ELDA DEL ROSARIO DOUBLE CUT OFF 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 [facility] 02-09-2024 21:59-0500 Body height 152 cm ELDA DEL ROSARIO DOUBLE CUT OFF 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 [facility] 02-09-2024 21:59-0500 Body weight 67 kg ELDA DEL ROSARIO DOUBLE CUT OFF 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 [facility] 02-09-2024 21:59-0500 Body weight 29 kg/m2 ELDA DEL ROSARIO DOUBLE CUT OFF 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 [facility] 02-09-2024 21:07-0500 Heart rate 78 /min ELDA DEL ROSARIO DOUBLE CUT OFF 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 [facility] 02-09-2024 21:07-0500 Mean blood pressure 90 mm[Hg] ELDA DEL ROSARIO DOUBLE CUT OFF 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 [facility] 02-09-2024 20:38-0500 Mean blood pressure 85 mm[Hg] ELDA DEL ROSARIO DOUBLE CUT OFF 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 [facility] 02-09-2024 19:39-0500 Heart rate 83 /min ELDA DEL ROSARIO DOUBLE CUT OFF 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 [facility] 01-21-2024 10:04-0500 Body height [...] Location INES DENNIS MD [facility] 12-09-2023 08:47-0400 Blood Pressure Method INES DENNIS [...] Pressure Non-Invasive 76 mm[Hg] SONNY FAVIO DO [facility] 11-29-2023 12:26-0400 Heart rate 76 /min SONNY FAVIO DO [facility] 11-29-2023 12:26-0400 Respiratory rate 18 /min SONNY FAVIO DO [facility] 11-29-2023 12:26-0400 Systolic Blood Pressure Non-Invasive 164 mm[Hg] SONNY FAVIO DO [facility] 11-29-2023 08:58-0400 Blood Pressure Cuff Size SONNY FAVIO DO [facility] 11-29-2023 08:58-0400 Blood Pressure Location SONNY FAVIO DO [facility] 11-29-2023 08:58-0400 Blood Pressure Method SONNY FAVIO DO [facility] 11-29-2023 08:58-0400 Body [...] Pressure Cuff Size DR ANISA GOMEZ MD [facility] 06-19-2022 12:01-[address] ANISA GOMEZ MD [facility] 06-19-2022 12:01-[address] ANISA GOMEZ MD [facility] 06-19-2022 12:01-0400 Body height [address] ANISA GOMEZ MD [facility] 06-19-2022 12:01-0400 Body temperature 97.7 [degF] DR ANISA GOMEZ MD [facility] 06-19-2022 12:01-0400 Body weight 76.[address] ANISA GOMEZ MD [facility] 06-19-2022 12:01-0400 Body weight 31.88 kg/m2 DR ANISA GOMEZ MD [facility] 06-19-2022 12:01-0400 Diastolic Blood Pressure Non-Invasive [address] ANISA GOMEZ MD [facility] 06-19-2022 12:01-0400 Heart rate 86 /min DR ANISA GOMEZ MD [facility] 06-19-2022 12:01-0400 Systolic Blood Pressure Non-Invasive [address] ANISA GOMEZ MD [facility] 04-06-2022 09:47-0500 Body height 157.5 cm Paula Alaniz MD Work Phone: [facility] 04-06-2022 09:47-0500 Body temperature 97.81 [degF] Paula Alaniz MD Work Phone: [facility] 04-06-2022 09:47-0500 Body weight 73.94 kg Paula Alaniz MD Work Phone: [facility] 04-06-2022 09:47-0500 Diastolic blood pressure 70 mm[Hg] Paula Alaniz MD Work Phone: [facility] 04-06-2022 09:47-0500 Heart rate 109 /min Paula Alaniz MD Work Phone: [facility] 04-06-2022 09:47-0500 SaO2% (BldA) [Mass fraction] 99 % Paula Alaniz MD Work Phone: [facility] 04-06-2022 09:47-0500 Systolic blood pressure 148 mm[Hg] Paula Alaniz MD Work Phone: [facility] 12-25-2021 16:18-0500 Diastolic Blood Pressure [...] pressure 77 mm[Hg] DR KEVIN VIRGEN MD [facility] 12-06-2021 12:58-0400 Mean blood pressure 111 mm[Hg] DR KEVIN VIRGEN MD [facility] 12-06-2021 12:58-0400 Systolic blood pressure 180 mm[Hg] DR KEVIN VIRGEN MD [facility] 12-06-2021 12:55-0400 Diastolic blood pressure 77 mm[Hg] DR KEVIN VIRGEN MD [facility] 12-06-2021 12:55-0400 Heart rate 60 /min DR KEVIN VIRGEN MD [address] [place] [address] 12-06-2021 12:55-0400 Mean blood pressure 111 mm[Hg] DR KEVIN VIRGEN MD [address] [place] [address] 12-06-2021 12:55-0400 Reason For Taking VItal Signs DR KEVIN VIRGEN MD [address] [place] [address] 12-06-2021 12:55-0400 Respiratory rate 18 /min DR KEVIN VIRGEN MD [address] 12-06-2021 12:55-0400 Systolic blood pressure 180 mm[Hg] DR KEVIN VIRGEN MD [address] [place] [address] 12-06-2021 08:46-0400 Heart rate 78 /min DR KEVIN VIRGEN MD [address] 12-06-2021 08:30-0400 Body temperature 98.06 [degF] DR KEVIN VIRGEN MD [address] 12-06-2021 08:30-0400 Diastolic blood pressure 82 mm[Hg] DR KEVIN VIRGEN MD [address] 12-06-2021 08:30-0400 Heart rate 77 /min DR KEVIN VIRGEN MD [address] [place] [address] 12-06-2021 08:30-0400 Mean blood pressure 106 mm[Hg] DR KEVIN VIRGEN MD [address] [place] [address] 12-06-2021 08:30-0400 Reason For Taking VItal Signs DR KEVIN VIRGEN MD [address] [place] [address] 12-06-2021 08:30-0400 Respiratory rate 17 /min DR KEVIN VIRGEN MD [address] [place] [address] 12-06-2021 08:30-0400 Systolic blood pressure 155 mm[Hg] DR KEVIN VIRGEN MD [address] [place] [address] 12-06-2021 03:45-0400 Body temperature 97.88 [degF] DR KEVIN VIRGEN MD [address] [place] [address] 12-06-2021 03:45-0400 Reason For Taking VItal Signs DR KEVIN VIRGEN MD [address] [place] [address] 12-06-2021 03:45-0400 Respiratory rate 18 /min DR KEVIN VIRGEN MD [address] [place] [address] 12-05-2021 23:53-0400 Body temperature 98.06 [degF] DR KEVIN VIRGEN MD [address] [place] [address] 12-04-2021 15:33-0400 Heart rate 56 /min DR KEVIN VIRGEN MD [address] [place] [address] 12-04-2021 02:47-0400 Heart rate 55 /min DR KEVIN VIRGEN MD [address] [place] [address] 12-03-2021 23:44-0400 Heart rate 60 /min DR KEVIN VIRGEN MD [address] [place] [address] 12-03-2021 21:46-0400 Body height [address] KEVIN VIRGEN MD [address] [place] [address] 12-03-2021 21:46-0400 Body weight 83.[address] KEVIN VIRGEN MD [address] [place] [address] 12-03-2021 21:46-0400 Body weight 32.73 kg/m2 DR KEVIN VIRGEN MD [address] [place] [address] 12-03-2021 21:30-0400 Heart rate 86 /min DR KEVIN VIRGEN MD [address] [place] [address] 12-03-2021 14:26-0400 Body temperature 98.06 [degF] DR KEVIN VIRGEN MD [facility] 12-03-2021 14:26-0400 Body weight 83.[address] KEVIN VIRGEN MD [facility] NEGATED: Highlighted [id number] 10:24-0500 BMI (Body Mass Index) 37.26 kg/m2 Rigo Sitko AT [facility] Work Phone: NEGATED: Highlighted [id number] 10:24-0500 BP Diastolic 72 mm[Hg] Rigo Sitko AT [facility] Work Phone: NEGATED: Highlighted [id number] 10:24-0500 BP Diastolic 82 mm[Hg] Rigo Sitko AT [facility] Work Phone: NEGATED: Highlighted [id number] 10:24-0500 BP Systolic 154 mm[Hg] Rigo Sitko AT [facility] Work Phone: NEGATED: Highlighted [id number] 10:24-0500 BP Systolic 149 mm[Hg] Rigo Sitko AT [facility] Work Phone: NEGATED: Highlighted [id number] 10:24-0500 Height 157.48 cm Rigo Sitko AT [facility] Work Phone: NEGATED: Highlighted [id number] 10:24-0500 Height 157 cm Rigo Sitko AT [facility] Work Phone: NEGATED: Highlighted [id number] 10:24-0500 Pulse (Heart Rate) 60 /min Rigo Sitko AT [facility] Work Phone: NEGATED: Highlighted [id number] 10:24-0500 Weight 92.08 kg Rigo Sitko AT [facility] Work Phone: NEGATED: Highlighted [id number] 10:24-0500 Weight 92 kg Rigo Sitko AT [facility] Work Phone: Encounters Encounter Date Encounter Type Care Provider Facility Start: 12-11-2024 ambulatory Jairon Medel Facili ty:[facility] Start: 11-27-2024 End: 11-27-2024 ambulatory Efsreekanthongmakenzie De Leone OLS Facility:[facility] Start: 11-13-2024 End: 11-13-2024 ambulatory Efmargarette De Leone OLS Facility:[facility] Start: 11-01-2024 End: 11-01-2024 ambulatory Efsreekanthongmakenzie De Leone Facility:[facility] Start: 10-16-2024 Registered Referred Jairon Ruvalcaba Start: 10-16-2024 End: 10-16-2024 ambulatory Efmargarette De Leone Facility:[facility] Start: 10-10-2024 End: 10-10-2024 ambulatory Efmargarette De Leone Facility:[facility] Start: 09-18-2024 ambulatory Efmargarette De Leone OLS Fa cility:[facility] Start: 09-18-2024 Registered Referred Jairon Ruvalcaba Start: 08-28-2024 End: 08-28-[address] Jairon Medel MD Work Phone: -[facility] Start: 08-28-2024 End: 08-28-2024 Departed Referred Jairon Ruvalcaba Start: 08-28-2024 Registered Referred Jairon Ruvalcaba Start: 08-28-2024 End: 08-28-2024 ambulatory Efsreekanthbraden Haleye OLS Facility:[facility] Start: 08-21-2024 ambulatory Efmeghanmakenzie Haleysophia OLS Fa cility:[facility] Start: 08-21-2024 Registered Referred Jairon Ruvalcaba Start: 08-08-2024 End: 08-08-[address] Warner Leos MD Work Phone: [facility] Start: 08-08-2024 End: 08-08-[address] Jairon Medel MD -[facility] Work Phone: Start: 08-08-2024 Non-patient / Non-visit Dr. Julia young MD -[facility] Work Phone: Start: 07-24-2024 End: 07-24-[address] Warner Leos MD Work Phone: -[facility] Start: 07-24-2024 End: 07-24-2024 Patient encounter procedure Jane Barth SLATE CUTTER OPERATOR-C -[facility] Work Phone: Start: 07-24-2024 End: 07-24-2024 Emergency department patient visit Dr. Warner Leos MD Work Phone: -Emergency Department Work Phone: Start: 06-27-2024 End: 06-27-[address] Warner Leos MD Work Phone: [facility] Start: 06-27-2024 End: 06-27-[address] Jairon Medel MD -[facility] Work Phone: Start: 06-26-2024 End: 06-26-[address] Warner Leos MD Work Phone: [facility] Work Phone: Start: 06-26-2024 End: 06-26-2024 Departed Referred Jairon Ruvalcaba Start: 06-26-2024 End: 06-26-2024 ambulatory Jairon TREVIÑO Facility:[facility] Start: 05-29-2024 End: 05-29-[address] Warner Leos MD Work Phone: [facility] Work Phone: Start: 05-29-2024 End: 05-29-2024 Departed Referred Jairon Ruvalcaba Start: 05-29-2024 Registered Referred Jairon LockhartKate Lockhart [place] Start: 05-29-2024 End: 05-29-2024 ambulatory Efmargarette Medel OLS Facility:[facility] Start: 05-24-2024 End: 05-24-[address] Warner Leos MD Work Phone: [facility] Work Phone: Start: 05-24-2024 End: 05-24-2024 [facility]: 05-24-[facility]24 [facility] Start: 05-23-2024 End: 05-24-[address] Warner Leos MD Work Phone: [facility] Work Phone: Start: 05-23-2024 End: 05-23-2024 Patient encounter procedure Jane Barth [facility] Work Phone: Start: 05-15-2024 End: 05-15-[address] Warner Leos MD Work Phone: [facility] Work Phone: Start: 05-15-2024 End: 05-15-2024 [facility] Start: 05-15-2024 [facility] Start: 05-15-2024 End: 05-15-2024 ambulatory Jairon De Leonsophia KAMILA Facility:[facility] Start: 05-12-2024 End: 05-12-[address] Warner Leos MD Work Phone: [facility] Work Phone: Start: 05-12-2024 End: 05-12-2024 Patient encounter procedure Jane Barth [facility] Work Phone: Start: 05-01-2024 End: 05-01-[address] Warner Leos MD Work Phone: [facility] Work Phone: Start: 05-01-2024 End: 05-01-2024 Departed Referred Jairon Ruvalcaba Start: 05-01-2024 End: 05-01-2024 ambulatory Warner Leos Jr. Facility:[facility] Start: 04-26-2024 End: 04-26-2024 ambulatory Jane Lary SLATE CUTTER OPERATOR Facility:[facility] Start: 04-26-2024 End: 04-26-2024 Patient encounter procedure Jane Sanchezmartha SLATE CUTTER OPERATOR- -[facility] Work Phone: Start: 04-11-2024 End: 04-11-2024 ambulatory Jairon Gianfranco Facility:[facility] Start: 04-11-2024 End: 04-11-[address] Jairon Medel MD -[facility] Work Phone: Start: 04-03-2024 End: 04-03-2024 Patient encounter procedure Jane Barth SLATE CUTTER OPERATOR- -[facility] Work Phone: Start: 04-03-2024 End: 04-03-2024 ambulatory Jane Lary SLATE CUTTER OPERATOR Facility:[facility] Start: 04-03-2024 Registered Referred Jairon Ruvalcaba Start: 03-27-2024 ambulatory Jairon TREVIÑO Fa cility:[facility] Start: 03-27-2024 Registered Referred Jairon Ruvalcaba Start: 02-29-2024 End: 02-29-2024 ambulatory Efmargarette Medel Facility:[facility] Start: 02-29-2024 End: 02-29-[address] [facility] Start: 02-28-2024 End: 02-28-2024 Departed Referred Jairon Ruvalcaba Start: 02-28-2024 End: 02-28-2024 ambulatory Jairon TREVIÑO Facility:[facility] Start: 02-24-2024 End: 02-24-2024 ambulatory Jane Barth NP Facility:[facility] Start: 02-24-2024 End: 02-24-2024 Patient encounter procedure Jane Barth SLATE CUTTER OPERATOR-C -[facility] Work Phone: Start: 02-11-2024 End: 02-23-[address] LARRY THOMAS DO Facility[facility] Start: 02-09-2024 End: 02-10-2024 Emergency department patient visit ELDA CARIN DOUBLE CUT OFF 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:[facility] Start: 02-09-2024 End: 02-10-2024 Observation ELDA OBREGONRUFF DOUBLE CUT OFF 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 [facility] Start: 01-21-2024 End: 01-21-2024 Emergency department patient visit INES DENNIS MD [facility] Start: 01-05-2024 End: 01-05-[address] LARRY THOMAS DO [facility] Start: 01-05-2024 End: 01-05-[address] LARRY THOMAS DO [facility] Start: 12-29-2023 End: 12-29-[address] LARRY THOMAS DO [facility] Start: 12-29-2023 End: 12-29-[address] LARRY THOMAS DO [facility] Start: 12-21-2023 End: 12-21-[address] LARRY THOMAS DO [facility] Start: 12-21-2023 End: 12-21-[address] LARRY THOMAS DO [facility] Start: 12-18-2023 End: 01-26-[address] LARRY THOMAS DO Facility:[facility] Start: 12-15-2023 End: 12-15-[address] LARRY THOMAS DO [facility] Start: 12-15-2023 End: 12-15-[address] LARRY THOMAS DO [facility] Start: 12-15-2023 End: 12-19-[address] LARRY THOMAS DO [facility] Start: 12-15-2023 End: 12-19-[address] LARRY THOMAS DO [facility] Start: 12-09-2023 End: 12-09-2023 Emergency department patient visit INES DENNIS MD [facility] Start: 11-29-2023 End: 11-29-2023 Emergency department patient visit SONNY FAVIO DO [facility] Start: 07-08-2023 End: 07-09-[address] LARRY THOMAS DO Facility:[facility] Start: 07-08-2023 End: 07-08-[address] LARRY THOMAS DO [facility] Start: 04-14-2023 End: 04-15-2023 ambulatory MAHAD LORENZO MD Facility:[facility] Start: 04-14-2023 End: 04-14-2023 Patient encounter procedure MAHAD LORENZO MD [facility] Start: 04-09-2023 End: 05-06-[address] LARRY THOMAS DO Facility:[facility] Start: 04-09-2023 End: 02-14-[address] LARRY THOMAS DO Facility:[facility] Start: 04-07-2023 End: 04-08-[address] LARRY THOMAS DO Facility:[facility] Start: 04-07-2023 End: 04-07-2023 Patient encounter procedure MAHAD LORENZO MD [facility] Start: 03-10-2023 End: 03-11-[address] LARRY THOMAS DO Facility:[facility] Start: 12-14-2022 End: 12-15-[address] LARRY THOMAS DO Facility:[facility] Start: 2022 End: 11-09-[address] LARRY THOMAS DO Facility:[facility] Start: 2022 End: 11-09-2022 Coordination of care plan DR LARRY THOMAS DO [facility] Start: 09-16-2022 End: 09-17-[address] LARRY THOMAS DO Facility:[facility] Start: 07-16-2022 End: 07-17-[address] ANISA GOMEZ MD Facility:[facility] Start: 06-19-2022 End: 06-19-[address] ANISA GOMEZ MD [facility] Start: 06-03-2022 Telephone encounter Paula Yepez MD Work Phone: General Surgery Comment on above: Request for medical records Start: 04-15-2022 End: 04-15-[address] LARRY THMOAS DO [facility] Start: 04-14-2022 End: 04-14-[address] LARRY THOMAS DO [facility] Start: 04-06-2022 End: 04-07-2022 ambulatory PAULA ALANIZ Facility:[facility] Start: 04-06-2022 End: 04-06-2022 Patient encounter procedure Paula Alaniz MD Work Phone: General Surgery Comment on above: Abnormal ultrasound of breast; History of left breast cancer Start: 03-23-2022 End: 03-23-2022 Patient encounter procedure ALANNA WRIGHT DO [facility] Start: 03-09-2022 End: 03-09-[address] LARRY THOMAS DO [facility] Start: 02-23-2022 End: 02-23-2022 Patient encounter procedure ALANNA WRIGHT DO [facility] Start: 01-22-2022 End: 01-22-2022 Patient encounter procedure ALANNA WRIGHT DO [facility] Start: 12-25-2021 End: 12-25-2021 Emergency department patient visit INES DENNIS MD [facility] Start: 12-03-2021 End: 12-06-[address] KEVIN VIRGEN MD [facility] Start: 05-05-2021 End: 05-05-2021 Patient encounter procedure ALANNA WRIGHT DO [facility] Start: 12-11-2020 End: 12-11-2020 Patient encounter procedure SEAN POOLE MD [facility] Start: 03-01-2018 Patient encounter procedure PAULA ROA [facility] Start: 01-17-2018 End: 01-17-2018 Patient encounter procedure Carla Dye MD Work Phone: [facility] Work Phone: Start: 05-18-2017 Patient encounter procedure PAULA ROA [facility] Procedures Date Procedure Procedure Detail Performing [...] 02-28-2024 Vitamin D, 25-hydrox y measurement Dr. Warenr Leos MD Work Phone: Comment on above: [...] structure, excl uding neck (body structure) SEAN POLOE MD Bone structure of ph alanx of thumb (body structure) DR ANISA GOMEZ MD Comment on above: left Hand structure (body structure) SEAN POOLE MD History of lumbar laminectomy DR ANISA GOMEZ MD Ligation of fallopian tube A ONEIL POOLE MD Lumpectomy of left breast DR KEVIN VIRGEN MD Plan of Treatment Date Care Activity Detail Author Start: 07-24-2024 [facility] Start: 02-08-2022 ADVANCE DIRECTIVE DISCUSSION ADVANCE DIRECTIVE DISCUSSION [facility] Start: 02-08-2022 DEPRESSION ASSESSMENT DEPRESSION ASSESSMENT [facility] Start: 08-10-2021 COVID-19 VACCINE (5 - Booster for Moderna series) COVID-19 VACCINE (5 - Booster for Moderna series) [facility] Start: 01-17-2018 End: 01-17-2018 Appointment Appointment [facility] Work Phone: Start: 09-23-2003 BONE DENSITY BONE DENSITY [facility] Start: 09-23-2003 PNEUMOCOCCAL: 65+ (1 - PCV) PNEUMOCOCCAL: 65+ (1 - PCV) [facility] Start: 1988 SHINGRIX VACCINE (1 of 2) SHINGRIX VACCINE (1 of 2) [facility] Start: 09-23-1983 DIABETES SCREEN DIABETES SCREEN [facility] Start: 1957 Urine microalbumin profile DTAP,TDAP,TD (1 - Tdap) [facility] Patient Education [facility] Work Phone: Patient referral [facility] Work Phone: Immunizations Immunization Date Immunization Notes Care Provider Mariya rubio 12-27-2022 SARS-CoV-2 (COVID-19 ) [id number] MAHAD LORENZO MD [facility] 11-05-2022 zoster vaccine recombinant MAHAD LORENZO MD [facility] 10-03-2022 influenza virus vacc ine, unspecified formulation MAHAD LORENZO MD [facility] 09-15-2022 pneumococcal 20-lisa nt conjugate vaccine MAHAD LORENZO MD [facility] 01-10-2022 influenza virus vacc ine, unspecified formulation MAHAD LORENZO MD [facility] 06-15-2021 SARS-CoV-2 (COVID-19 ) [id number] vaccine MAHAD LORENZO MD [facility] 12-12-2020 SARS-CoV-2 (COVID-19 ) [id number] vaccine MAHAD LORENZO MD [facility] Comment on above: Result Comment: 2022: [id number] 10-22-2020 influenza virus vacc ine, unspecified formulation MAHAD LORENZO MD [facility] 03-28-2020 COVID-19, mRNA, LNP- S, PF, [...] vacc ine, unspecified formulation MAHAD LORENZO MD [facility] 10-11-2019 pneumococcal conjuga te vaccine, 13 [...] [facility] 01[facility] pneumococcal polysaccharide vaccine, 23 valent SEAN POOLE MD [facility] No information available. Rigo Best AT [facility] Work Phone: Payers Date Payer Category Payer Self-pay [id number] 2017 Private Health Insurance [id number] 2017 Unknown [id number] 2003 Medicare [id number]. 1.13.159.2.7.3.6 [id number] 2003 Medicare [id number] 1940 Unknown [id number] 2.16.840.1.416287.3.579.2. 1938 Unknown [id number] 2.16.840.1.181247.3.579.2. 1938 Unknown [id number] 2.16.840.1.960615.3.579.2. 1938 Unknown [id number] 2.16.840.1.695816.3.579.2. 1938 Unknown [id number] 2.16.840.1.726230.3.579.2. 1938 Unknown [id number] 2.16.840.1.815379.3.579.2. 1938 Unknown [id number] 2.16.840.1.142663.3.579.2. 1938 Unknown [id number] 2.16.840.1.047642.3.579.2. 1938 Unknown [id number] 2.16.840.1.087718.3.579.2. 1938 Unknown [id number] 2.16.840.1.507860.3.579.2. 1938 Unknown [id number] 2.16.840.1.334740.3.579.2.627 1938 Unknown [id number] 2.16.840.1.987790.3.579.2.627 1938 Unknown [id number] 2.16.840.1.999701.3.579.2.62 1938 Unknown [id number] 2..840.1.021512.3.579.2.62 1938 Unknown [id number] 2..840.1.606222.3.579.2.62 1938 Unknown [id number] 2.840.1.414519.3.579.2.62 1938 Unknown [id number] 2.840.1.784444.3.579.2.627 Medicare MEDICARE PART A B [id number] 1 [id number] Unknown [id number] 2.16.840.1.501383.3.579.2.462 Unknown [id number] 2.16840.1.747197.3.579.2.462 Unknown [id number] 2.16.840.1.652511.3.579.2.462 Unknown [id number] 2.16840.1.330275.3.579.2.462 Unknown [id number] 2.16840.1.669732.3.579.2.462 Unknown [id number] 2.16.840.1.985993.3.579.2.462 Unknown [id number] 2.16.840.1.760738.3.579.2.462 Unknown [id number] 2.16.840.1.307988.3.579.2.462 Unknown [id number] 2.16.840.1.733513.3.579.2.462 Unknown [id number] 2.16.840.1.763199.3.579.2.462 Unknown [id number] 2.16.840.1.459931.3.579.2.462 Unknown [id number] 2.16.840.1.862698.3.579.2.462 Unknown [id number] 2.16.840.1.071179.3.579.2.462 Unknown [id number] 2.16.840.1.979000.3.579.2.462 Unknown [id number] 2.16.840.1.188979.3.579.2.462 Unknown [id number] 2.16.840.1.727840.3.579.2.462 Unknown [id number] 2..840.1.308322.3.579.2.462 Unknown [id number] 2.840.1.436059.3.579.2.462 Unknown [id number] 2.840.1.535569.3.579.2.462 Unknown [id number] 2.840.1.804539.3.579.2.462 Unknown [id number] 2.16.840.1.913771.3.579.2.462 Unknown [id number] 2.16840.1.173641.3.579.2.462 Unknown [id number] 2.16840.1.416288.3.579.2.462 Unknown [id number] 2.16.840.1.275196.3.579.2.462 Unknown [id number] 2.16.840.1.919771.3.579.2.462 Unknown [id number] 2.16.840.1.039195.3.579.2.462 Unknown [id number] 2.16.840.1.617870.3.579.2.462 Unknown [id number] 2.16840.1.744741.3.579.2.462 Social History Date Type Detail Facility Start: 01-17-2018 End: 01-17-2018 Assertion Unknown if ever smoked [facility] Work Phone: Start: 04-07-2019 End: 08-26-2024 Never smoked tobacco (finding) [facility] Sex Assigned At [facility] Start: 04-06-2022 Tobacco use and exposure Smokeless tobacco non-user [facility] Start: 04-06-2022 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 Medical Equipment Procedure Code Equipment [...] hecks q2hrs Performed Other: 7AM - 4PM [facility] 02-10-2024 Functional Status Financial gaston gement, Home management, Laundry, Meal preparation, Personal ADL, Shopping [facility] 02-10-2024 Functional [facility] 02-10-2024 Functional Status Identified as high risk, Door open, Non-Slip footwear, Room check performed [facility] 02-10-2024 Functional Status [facility] 02-10-2024 Functional Status [facility] 02-10-2024 Functional Status [facility] 02-09-2024 Functional Status [facility] 01-21-2024 Functional Status Minimum assistance [facility] 01-21-2024 Functional Status Independent [facility] 12-09-2023 Functional Status Minimum assistance [facility] 12-09-2023 Functional Status ID band on, Call device within reach, Bed in low position, Wheels locked, Upper/Half-Length side-rails up, Visitor at bedside, Safety level maintained [facility] 11-29-2023 Functional Status Up ad nazario [facility] 11-29-2023 Functional Status Standard Safet y ID band on, Call device within reach, Bed in low position, Wheels locked, Upper/Half-Length side-rails up, Visitor at bedside [facility] 06-19-2022 Functional Status Sensory Deficits None [facility] 12-25-2021 Functional Status Independent [facility] 12-06-2021 Functional Status None [facility] 12-06-2021 Functional Status Room check performed [facility] 12-06-2021 Functional Status [facility] 12-06-2021 Functional Status [facility] 12-05-2021 Functional Status [facility] 12-05-2021 Functional Status [facility] 12-05-2021 Functional Status Mod A 1 [facility] 12-04-2021 Functional Status Single level home [facility] 12-04-2021 Functional Status [facility] 12-04-2021 Functional Status [facility] 12-04-2021 Functional Status [facility] 12-04-2021 Functional Status [facility] 12-04-2021 Functional Status SCD On/Re-appl ied bilateral knee high [facility] 12-03-2021 Functional Status Ambulation in Room [facility] Mental Status Date Assessment Result Facility 02-10-2024 Mental Status Not oriented to time, Forgetful, Follows simple commands [facility] 02-09-2024 Mental Status [facility] 02-09-2024 Mental Status [facility] 01-21-2024 Mental Status Orientation Not oriented to situation, Forgetful [facility] 01-21-2024 Mental Status [facility] 12-09-2023 Mental Status Orientation Oriented x 4 [facility] 12-09-2023 Mental Status [facility] 11-29-2023 Mental Status Orientation Oriented x 4 [facility] 11-29-2023 Mental Status [facility] 12-25-2021 Mental Status Orientation Oriented x 4 [facility] 12-06-2021 Mental Status Oriented x 4, [facility] 12-06-2021 Mental Status [facility] 12-06-2021 Mental Status [facility] Clinical Notes 12-03-2021 to 07-24-2024 Note Date & Type Note Facility 07-24-2024 Discharge summary [facility] 07-24-2024 Radiology Diagnostic study note [facility] Imaging Services [address] [place], [place] [id number] HIP, UNI W/ Pelvis 2-3 Views MR#: [id number] Acct: [id number] Name: CT DALTON Rep #: [id number] : 1940 F 83 From: Jane Vance MD PCP: Dr. Jairon Medel MD Status: R EG ER Study:HIP, UNI W/ Pelvis 2-3 Views Date of Ex am: 07/24/24 Exam# [id number] Ordering Dr: Sharon Harry MD PROCEDURE: HIP, [...] Right hip moderate degenerative changes. Reading Location: [place] [address] CC: Dr. Jairon Medel MD; Dr. 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 Follow Up Care 02/09/2024 19:37:05 With:LARRY THOMAS DO Address: [address] [place] [phone] When:02/16/2024 09:30:00 Comments:This is your post-hospital appointment. Follow-up as scheduled. [facility] 02-10-2024 Note Discharge Instructions Thank you for allowing [facility] to assist you with your healthcare needs. The following is important discharge information regarding your hospital visit. Your Care Team SUSY ALBRIGHT APRN-SHAMEKA Your Diagnosis (HFpEF) heart failure with preserved ejection fraction Dementia Weakness What to do next Scheduled Follow-Up Appointments Appointment Type When With Where Contact Information StatusPC OV 02/16/2024 09:30 AM EST LARRY THOMAS DO [address] [phone] Confirmed Follow Up Appointments Follow Up with LARRY THOMAS DO When:02/16/2024 09:30 AM EST Where:[address] [place] [address] [phone] Additional Information: This is your post-hospital appointment. [...] [facility] MAN teen) Namenda, Namenda XR What [...] may report side effects to FDA at [phone]-[phone]. What other drugs will affect memantine? Tell [...] may interact with memantine, including prescription and fulu-ock-vxfxxrr medicines, vitamins, and herbal products. Not all [...] to ensure that the information provided by [employer]. ('[employer]') is accurate, up-to-date, and complete, but no guarantee is made to that effect. Drug information contained herein may be time sensitive. [employer] information has been compiled for use by healthcare practitioners and consumers in the [place] and therefore [employer] does not warrant that uses outside of the [place] are appropriate, unless specifically indicated otherwise. [employer]'s drug information does not endorse drugs, diagnose patients or recommend therapy. [employer] drug information is an informational resource designed [...] effective or appropriate for any given patient. [employer] does not assume any responsibility for any aspect of healthcare administered with the aid of information [employer] provides. The information contained herein is not intended to cover all possible uses, directions, precautions, warnings, drug interactions, allergic reactions, or adverse effects. If you have questions about the drugs you are taking, check with your doctor, nurse or pharmacist. Copyright 8885-5329 [employer]. Version: 5.01. Revision Date: 09/21/2022. Education Materials [...] Follow these instructions at home: Medicines Take pxuo-ydr-mymbjnw and prescription medicines only as told by [...] to receive it can visit one of [facility] vaccine clinics. There are many vaccine clinic locations within the [facility]. For locations and available times, please visit https://gettheshot.coronavirus.[place].gov/. It is important to note that some COVID mobile vaccine clinics are held outdoors and may be canceled in rainy or stormy conditions. To learn more about pediatric vaccinations (ages 5-11), we invite you to visit the [facility] webpage. https://www.[facility].org/pag es/8310-Cflqn-Hgtovjulbzp-Frequent pa-Gueoc-Wodctegvr.html To learn more about the COVID-19 vaccine, we invite you to visit the CDC website for a list of frequently asked questions.https://www.cdc.gov/armando navirus/2019-ncov/vaccines/faq.htm l 2,10E+07 Patient Portal Access Instructions: Stay connected with your healthcare team and access your personal medical information anytime with the 2,10E+07 Patient Portal. Please follow the directions below to create your 2,10E+07 account: 1.Access the email account you provided upon registration to the hospital/physician office.2.Look for an invitation email from [facility].3.Open the email and access the invitation link: Accept Invitation to [facility].4.Fill in the required alejandro to create your account. To access your account, visit [email or web address]/Help [email or web address]. Click the blue button labeled "Access Patient [...] you will allow to register on the [facility] Patient Portal for access to your information. You can also access the [facility] Patient Portal on the [employer] Anywhere angelica. Simply click on "Patient Portal" and then log into your account. If you would like to receive a full copy of your medical records, please contact the [facility] Medical Records Department by calling [phone], Wednesday through Wednesday between 8 a.m. and [...] Call your local pharmacy or go to http://[employer].SynapticMash/[email or web address] to find one close to you.3.Make use of household items: Use cat litter or old coffee grounds to dispose medications if other options are not available. Mix your drugs with these household products, seal them in an airtight container and throw it into the garbage. Call [facility]: [phone] to be sure your drugs can be [...] CHART COPY. Signatures Patient Education Materials Dementia, Dfau-ua-Glzi Medication Leaflets memantine My discharge plan and instructions have been reviewed and explained to me and ISHA CAROLE A understand my current condition and have read and understand these discharge instructions. I have received a written copy of the plan/instructions. If I have questions, I am aware that I should contact my doctor. 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 Weakness 2. (HFpEF) heart failure [...] 09:30:00 AM Scheduled Provider:LARRY THOMAS DO Location:[facility] Appointment Type:[facility] 01-02-2025 Note Date of Service 02/10/24 Chief Complaint patient called EMS with complaint of BLE swelling. patient poor historian but continues to report BLE swelling on arrival. also states that she feels weak. History of Present Illness 83 year old female with past medical history of dementia, urinary frequency, dizziness, breast cancer, CKD Stage 3, anemia, HLD, HFpEF. [facility] due to family [...] by SUSY ALBRIGHT on 02/10/2024 10:21 AM [facility]01-01-2025 Note* Exam Date Time Procedure Performing Provider Status 02/09/24 8:10 PM XR Chest 1 View EILEEN CHRISTINE DO; Arnaldo h (Verified) [id number] ORIGINAL EXAMINATION: ONE XRAY VIEW OF THE [...] mid-urethra. Front view of female urinary tract. 3295-1693 [employer]. [address] [place] [address]. All rights reserved. This information is not intended as a substitute for professional medical care. Always follow yourhealthcare professional's instructions. Follow Up Care 01/21/2024 09:33:55 With:LARRY THOMAS DO Address: [address] [facility] [place] [phone] When:2-4 days [facility] 12-13-2024 Note Discharge Instructions Thank you for allowing [facility] to assist you with your healthcare needs. The following is importantdischarge information regarding your hospital visit. Diagnosis from Today's Visit Bladder pain What to Do Next Instructions from Your Care Team No qualifying data available. Post Acute Orders No qualifying data available. You Need to Schedule the Following Appointments Follow Up with LARRY THOMAS DO When:Within 2-4 days Where:[address] [facility] [place] [address] [phone] Allergies NKA Medications Please ask your primary [...] mid-urethra. Front view of female urinary tract. 9257-4871 [employer]. [address] [place] [address]. All rights reserved. This information is not intended as a substitute for professional medical care. Always follow yourhealthcare professional's instructions. Additional Information VACCINATE! IT SAVES LIVES! Members of the community who have not yet received the COVID-19 vaccine and would like to receive it can visit one of [facility] vaccine clinics. There are many vaccine clinic locations within the [facility]. For locations and available times, please visit www.gettheshot.coronavirus.[place].gov/. It is important to note that some COVID mobile vaccine clinics are held outdoors and may be canceled in rainy or stormy conditions. To learn more about pediatric vaccinations (ages 5-11), we invite you to visit the [facility] webpage. https://www.[facility].org/pages/2013-Lyafn-Opjpgbrqwkx-Jisqplbywp-Epngj-Opq stions.htmlTo learn more about the COVID-19 vaccine, we invite you to visit the CDC website for a list of frequently asked questions. https://www.cdc.gov/coronavirus/2019-ncov/vaccines/faq.html [facility] Patient Portal Access Instructions: Stay connected with your healthcare team and access your personal medical information anytime with the [facility] Patient Portal. If you would like a full copy of your medical records please contact the [facility] Medical Records Department Wednesday through Wednesday between 8a.m. and 4:30p.m. Please follow the directions below to access the portal: 1.Access the email account you provided upon registration to the [facility].2.Look for an invitation email from [facility].3.Open the email and access the invitation link: Accept Invitation to 2,10E+074.Fill in the required alejandro to create your account. Sign into [email or web address] with your username and password that you [...] you will allow to register on the 2,10E+07 Patient Portal for access to your information. You can also access the 2,10E+07 Patient Portal on the [employer]. Simply click on "Health Records" under "Dot [employer]" and then click on the Help Remedies logo. HOW TO SAFELY DISPOSE OF PRESCRIPTION [...] Call your local pharmacy or go to http://[employer].SynapticMash/1I2Vw7z to find one close to you.3.Make use of household items: Use cat litter or old coffee grounds to dispose medications if other options arenot available. Mix your drugs with these household products, seal them in an airtight container andthrow it into the garbage. Call [facility]: [phone] to be sure your drugs can be [...] aware that I should contact my doctor. 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 MICRO - Microbiology PROCEDURE: Urine Culture [...] Locations *1: This test was performed at: [facility], [address] [place] [address], [address]- , [facility]10-31-2024 [...] mid-urethra. Front view of female urinary tract. 5155-5560 [employer]. [address] [place] [address]. All rights reserved. This information is not intended as a substitute for professional medical care. Always follow yourhealthcare professional's instructions. Follow Up Care 12/09/2023 08:33:51 With:LARRY THOMAS DO Address: [address] [place] [phone] When:2-4 days [facility] 10-31-2024 Note Discharge Instructions Thank you for allowing [facility] to assist you with your healthcare needs. The following is importantdischarge information regarding your hospital visit. Diagnosis from Today's Visit Urinary frequency What to Do Next Instructions from Your Care Team No qualifying data available. Post Acute Orders No qualifying data available. You Need to Schedule the Following Appointments Follow Up with LARRY THOMAS DO When:Within 2-4 days Where:[address] [place] [phone] Allergies NKA Medications Please ask your primary [...] mid-urethra. Front view of female urinary tract. 6765-3689 [employer]. [address] [place] [address], [place] [address]. All rights reserved. This information is not intended as a substitute for professional medical care. Always follow yourhealthcare professional's instructions. Additional Information VACCINATE! IT SAVES LIVES! Members of the community who have not yet received the COVID-19 vaccine and would like to receive it can visit one of [facility] vaccine clinics. There are many vaccine clinic locations within the [facility]. For locations and available times, please visit www.gettheshot.coronavirus.[place].gov/. It is important to note that some COVID mobile vaccine clinics are held outdoors and may be canceled in rainy or stormy conditions. To learn more about pediatric vaccinations (ages 5-11), we invite you to visit the [employer] Childrens webpage. https://www.[facility].org/pages/1246-Hlzct-Tseuiqlmrvv-Gpuucfthqd-Itmtf-Psw stions.htmlTo learn more about the COVID-19 vaccine, we invite you to visit the CDC website for a list of frequently asked questions. https://www.cdc.gov/coronavirus/2019-ncov/vaccines/faq.html [facility] Patient Portal Access Instructions: Stay connected with your healthcare team and access your personal medical information anytime with the [facility] Patient Portal. If you would like a full copy of your medical records please contact the [facility] Medical Records Department Wednesday through Wednesday between 8a.m. and 4:30p.m. Please follow the directions below to access the portal: 1.Access the email account you provided upon registration to the hospital.2.Look for an invitation email from [facility].3.Open the email and access the invitation link: Accept Invitation to [facility]4.Fill in the required alejandro to create your account. Sign into [email or web address] with your username and password that you [...] you will allow to register on the [facility] Patient Portal for access to your information. You can also access the [facility] Patient Portal on the [employer] angelica. Simply click on "Health Records" under [...] Call your local pharmacy or go to http://[employer].SynapticMash/3S3Xl5t to find one close to you.3.Make use of household items: Use cat litter or old coffee grounds to dispose medications if other options arenot available. Mix your drugs with these household products, seal them in an airtight container andthrow it into the garbage. Call [facility]: [phone] to be sure your drugs can be [...] aware that I should contact my doctor. Patient/Director Of Instrumental Music Signature: Date/Time: Relationship to Patient: Witness Name/Signature: [...] or swelling over your back or spine 8838-4442 [employer]. [address] [place] [address], [place] [address]. All rights reserved. This information is not intended as a substitute for professional medical care. Always follow yourhealthcare professional's instructions. Follow Up Care 11/29/2023 08:56:34 With:Go to emergency room if symptoms worsen Address:Unknown When:2-4 days With:LARRY THOMAS DO Address: [address] [place] [address] [place] [phone] When:2-4 days [facility] 10-21-2024 Note Discharge Instructions Thank you for allowing [facility] to assist you with your healthcare needs. [...] LARRY THOMAS DO When:Within 2-4 days Where:[address] [facility] [place] [address]- [phone] Allergies NKA Medications Please ask your primary [...] or swelling over your back or spine [phone] [employer]. [address] [place] [address]. All rights reserved. This information is not intended as a substitute for professional medical care. Always follow yourhealthcare professional's instructions. Additional Information VACCINATE! IT SAVES LIVES! Members of the community who have not yet received the COVID-19 vaccine and would like to receive it can visit one of [facility] vaccine clinics. There are many vaccine clinic locations within the [facility]. For locations and available times, please visit www.gettheshot.coronavirus.[place].gov/. It is important to note that some COVID mobile vaccine clinics are held outdoors and may be canceled in rainy or stormy conditions. To learn more about pediatric vaccinations (ages 5-11), we invite you to visit the [facility] webpage. https://www.[facility].org/pages/3163-Ckcpq-Babwgcppnke-Aohkdyubjk-Kcvov-Fqx stions.htmlTo learn more about the COVID-19 vaccine, we invite you to visit the CDC website for a list of frequently asked questions. https://www.cdc.gov/coronavirus/2019-ncov/vaccines/faq.html [facility] Patient Portal Access Instructions: Stay connected with your healthcare team and access your personal medical information anytime with the [facility] Patient Portal. If you would like a full copy of your medical records please contact the [facility] Medical Records Department Wednesday through Wednesday between 8a.m. and 4:30p.m. Please follow the directions below to access the portal: 1.Access the email account you provided upon registration to the [facility].2.Look for an invitation email from [facility].3.Open the email and access the invitation link: Accept Invitation to [facility]4.Fill in the required alejandro to create your account. Sign into [email or web address] Renewables with your username and password that you [...] you will allow to register on the [facility] Patient Portal for access to your information. You can also access the [facility] Patient Portal on the Cloud Sustainability. Simply click on "Health Records" under "HealthData" and then click on the Help Remedies logo. HOW TO SAFELY DISPOSE OF PRESCRIPTION [...] Call your local pharmacy or go to http://bit.SynapticMash/2B4Qk2w to find one close to you.3.Make use of household items: Use cat litter or old coffee grounds to dispose medications if other options arenot available. Mix your drugs with these household products, seal them in an airtight container andthrow it into the garbage. Call [facility]: [phone] to be sure your drugs can be [...] aware that I should contact my doctor. Patient/Director Of Instrumental Music Signature: Date/Time: Relationship to Patient: Witness Name/Signature: [...] Sign Date: 11/29/2023 11:51:51 AM Ordering Provider: [facility]03-06-2024 Note ORIGINAL EXAMINATION: CT OF THE HEAD [...] 10:35:22 AM Ordering Provider: MAHAD [facility]04-26-2023 Miscellaneous Notes* Telephone Encounter - Brenton Jennings RN - 06/03/2022 11:26 AM EDT Received a request from [facility] for all of Ct's left breast cancer treatment medical records. Faxed the request to medical records on [facility], fax confirmation sheet received. Brenton Jennings RN documented in this encounterOhio[facility]03-08-2023 Note ORIGINAL EXAMINATION: ULTRASOUND OF [...] 04/15/2022 10:15:33 AM Ordering Provider: LARRY THOMAS [facility]03-08-2023 Note ORIGINAL EXAMINATION: ULTRASOUND OF THE KIDNEYS [...] Sign Date: 04/15/2022 10:15:33 AM Ordering Provider: [facility]02-28-2023 NoteHNO ID: [id number] Author: Paula Alaniz MD Service: ? Author [...] needle core breast biopsies on 03/23/2022 at [facility]. Findings of "fat necrosis, inflammation and dense [...] of skin c (more content not included)... [facility]02-28-2023 History of Present illness Narrative* Paula [...] needle core breast biopsies on 03/23/2022 at [facility]. Findings of "fat necrosis, inflammation and dense [...] her studies and testing were done at [facility], I have recommended that she proceed with her evaluation/treatment there. The breast radiologists there have recommended wire localization lumpectomy of the left breast. I have told her that I could offer her the same but it would be at [facility]. She states thatshe would prefer [facility] as it is closer to [...] Low Paula Alaniz MD documented in this encounterOhiohealth [facility]02-27-2023 Nurse Note* Mini Brooke, MATILDE - [...] ago Mini Brooke LPN documented in this encounterOhio[facility]12-15-2022 Note ORIGINAL FROM: [place] [address] PROCEDURE FOR: CT DALTON [address] [place] [phone] Home: PID#: [id number] Exam#: [id number] : 1940 Age: 81 TO: ALANNA WRIGHT [place] [address] Fax: NO FAX EXAMINATION: ULTRASOUND OF THE [...] ALANNA WRIGHT CLINICAL: MAMMOGRAPHIC DENSITY LEFT BREAST. Division Supervisor: JOSIE RUIZ RT(R) RDMS letter sent: Biopsy Recommended BI-RADS 4 and 5 Ultrasound BI-RADS: 4 Suspicious for malignancy [facility]12-15-2022 Note ORIGINAL FROM: [place] [address] PROCEDURE FOR: CT DALTON [address] [place] [phone] Home: PID#: [id number] Exam#: [id number] : 1940 Age: 81 TO: ALANNA WRIGHT DO [address] [place] [address] Fax: NO FAX EXAMINATION: ULTRASOUND OF THE [...] ALANNA WRIGHT CLINICAL: MAMMOGRAPHIC DENSITY LEFT BREAST. Division Supervisor: JOSIE RUIZ RT(R) RDMS letter sent: Biopsy [...] about: All medicines you take, including prescription, cjkf-kwt-uszwfnq, herbs, and supplements Any other symptoms you [...] Chest, arm, neck, back, or jaw pain 4716-6177 [employer]. [address] [place] [address]. All rights reserved. This information is not [...] medicine was given, you may use an jkhk-ffg-qoxiiqm product made for clearingearwax (such as Debrox or Murine Earwax Drops). These contain carbamide peroxide and are available zupq-xnp-nkenjsv. Lie down with the blocked ear facing [...] ear Headache, neck pain or stiff neck 0537-2439 [employer]. [address] [place] [address]. All rights reserved. This information is not intended as a substitute for professional medical care. Always follow yourhealthcare professional's instructions. Follow Up Care 12/25/2021 15:48:16 With:ALANNA WRIGHT DO Address: [address] [place] [address] [place] [phone] When:2-4 days [facility] 11-17-2022 Note Discharge Instructions Thank you for allowing [facility] to assist you with your healthcare needs. [...] WRIGHT DO When Within 2-4 days Where: [facility] [place] [phone] Allergies NKA Medications Please ask your primary [...] about: All medicines you take, including prescription, kfpa-ptx-onnsezn, herbs, and supplements Any other symptoms you [...] Chest, arm, neck, back, or jaw pain 2307-2385 [employer]. [address] [place] [address]. All rights reserved. This information is not [...] medicine was given, you may use an ugjl-ntx-lcoiqjj product made for clearingearwax (such as Debrox or Murine Earwax Drops). These contain carbamide peroxide and are available iwnv-ava-xcbaxod. Lie down with the blocked ear facing [...] ear Headache, neck pain or stiff neck 2280-7732 [employer]. [address] [place] [address]. All rights reserved. This information is not intended as a substitute for professional medical care. Always follow yourhealthcare professional's instructions. Additional Information VACCINATE! IT SAVES LIVES! Members of the community who have not yet received the COVID-19 vaccine and would like to receive it can visit one of [facility] vaccine clinics. There are many vaccine clinic locations within the [facility]. For locations and available times, please visit www.gettheshot.coronavirus.[place].org. It is important to note that some COVID mobile vaccine clinics are held outdoors and may be canceled in rainy orstormy conditions. To learn more about pediatric vaccinations (ages 5-11), we invite you to visit the [facility] webpage. https://www.[facility].org/pages/5110-Dgqur-Nrvrlsxlufx-Mhbjolwdkn-Atvss-Ybe stions.htmlTo learn more about the COVID-19 vaccine, we invite you to visit the [facility] website for a list of frequently asked questions. https://[facility]cil.org/assets/Jqokgnmu-etk-Oqazpfdo/himvc-Raafwej-Kidsqezzoz _Asked-Questions.pdf [facility] Patient Portal Access Instructions: Stay connected with your healthcare team and access your personal medical information anytime with the [facility] Patient Portal. If you would like a full copy of your medical records please contact the [facility] Medical Records Department Wednesday through Wednesday between 8a.m. and 4:30p.m. Please follow the directions below to access the portal: 1.Access the email account you provided upon registration to the [facility].2.Look for an invitation email from [facility].3.Open the email and access the invitation link: Accept Invitation to [facility]4.Fill in the required alejandro to create your account. Sign into [email or web address] with your username and password that you [...] you will allow to register on the [facility] Patient Portal for access to your information. You can also access the [facility] Patient Portal on the Nomad [employer] angelica. Simply click on "Health Records" under [...] Call your local pharmacy or go to http://bit.ly/3F8Ed5x to find one close to you.3.Make use of household items: Use cat litter or old coffee grounds to dispose medications if other options arenot available. Mix your drugs with these household products, seal them in an airtight container andthrow it into the garbage. Call [facility]: [phone] to be sure your drugs can be [...] aware that I should contact my doctor. Patient/Director Of Instrumental Music Signature: Date/Time: Relationship to Patient: Witness Name/Signature: Date/Time: [facility] Cecil[facility] JohnsonSahmwnvn90-61-1067 Hospital Discharge instructions Patient Education 12/06/2021 14:31:46 Dizziness, Mgzh-zh-Ojyi Dizziness Dizziness is a common problem. It [...] balance is fine. 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 Take ooey-ghp-ngbyaei and prescription medicines only as told by [...] 01/14/2012 Document Revised: 01/28/2018 Document Reviewed: 02/11/2017 [employer] Patient Education 2020 [employer] 12/06/2021 14:31:38 Fall Prevention and Home Safety, Csce-id-Kcov Fall Prevention and Home Safety Falls cause [...] [facility] [place] Patient Information 2015 [employer]. This information is not intended to replace advicegiven to you by your health care provider. Make sure you discuss any questions you have with your health care provider. Follow Up Care 12/03/2021 14:18:30 With:[employer] [facility], Address:Unknown When:1-2 days With:ALANNA WRIGHT DO Address: [address] [place] [address]- When:1-2 days Comments:Please call the office to schedule a follow up appointment [facility] 10-29-2022 Note Discharge Instructions Thank you for allowing [facility] to assist you with your healthcare needs. [...] Bilateral w/ Fer 12/12/2021 03:00 PM T [place] [facility] Follow Up Appointments Follow Up with [facility], When Within 1-2 days Follow Up with ALANNA WRIGHT DO When Within 1-2 days Why: Please call the office to schedule a follow up appointment Where: [facility] [place] [address]- The Following Activity and Diet Have Been [...] balance is fine. 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 Take vbht-zsa-ajcuzov and prescription medicines only as told by [...] 01/14/2012 Document Revised: 01/28/2018 Document Reviewed: 02/11/2017 [employer] Patient Education 2020 [employer] Fall Prevention and Home Safety Falls [...] Document Reviewed: 04/26/2012 ExitCare Patient Information 2015 [facility]. This information is not intended to replace advicegiven to you by your health care provider. Make sure you discuss any questions you have with your health care provider. Additional Information VACCINATE! IT SAVES LIVES! Members of the community who have not yet received the COVID-19 vaccine and would like to receive it can visit one of [facility] vaccine clinics. There are many vaccine clinic locations within the [facility]. For locations and available times, please visit https://[email or web address].[place].gov/. It is important to note that some COVID mobile vaccine clinics are held outdoors and may be canceled in rainy or stormy conditions. To learn more about pediatric vaccinations (ages 5-11), we invite you to visit the [facility] webpage. https://www.[facility].org/pages/9955-Ykolu-Znwpukaylax-Lytvvqjxzn-Tnqjt-Uje stions.htmlTo learn more about the COVID-19 vaccine, we invite you to visit the [facility] website for a list of frequently asked questions. https://[employer].PaeDae/assets/Ghjduoiq-mzd-Tkzmjkaa/zhnfv-Bbffdza-Gpafupymuw _Asked-Questions.pdf [facility] Patient Portal Access Instructions: Stay connected with your healthcare team and access your personal medical information anytime with the [facility] Patient Portal.If you would like a full copy of your medical records, please contact the [facility] Medical Records Department, Wednesday through Wednesday between 8a.m. and 4:30p.m. Please follow the directions below to access the portal: 1.Access the email account you provided upon registration to the [facility].2.Look for an invitation email from [facility].3.Open the email and access the invitation link: Accept Invitation to [facility]4.Fill in the required alejandro to create your account. Sign into [email or web address] with your username and password that you [...] you will allow to register on the [facility] Patient Portal for access to your information. You can also access the [facility] Patient Portal on the Cloud Sustainability. Simply click on "Health Records" under "HealthData" [...] Call your local pharmacy or go to http://[employer].SynapticMash/8J6Gt8n to find one close to you.3.Make use of household items: Use cat litter or old coffee grounds to dispose medications if other options arenot available. Mix your drugs with these household products, seal them in an airtight container andthrow it into the garbage. Call [facility]: [phone] to be sure your drugs can be [...] CHART COPY. Signatures Patient Education Materials Dizziness, Anlv-jn-Iuag Fall Prevention and Home Safety, Xdbo-ko-Fbza Medication Leaflets My discharge plan and instructions have been reviewed and explained to me and I,CT DALTON understand my current condition and have read and understand these discharge instructions. I have received a written copy of the plan/instructions. If I have questions, I am aware that I should contact my doctor. Patient/Director Of Instrumental Music Signature: Date/Time: Relationship to Patient: Witness Name/Signature: Date/Time: [id number] Note Discharge Instructions Thank you for allowing [facility] to assist you with your healthcare needs. [...] Bilateral w/ Fer 12/12/2021 03:00 PM EDT [place] [facility] Follow Up Appointments Follow Up with [facility], [phone] When Within 1-2 days Follow Up with ALANNA WRIGHT DO When Within 1-2 days Why: Please call the office to schedule a follow up appointment Where: [facility] [place] [address]- The Following Activity and Diet Have Been [...] to receive it can visit one of [facility] vaccine clinics. There are many vaccine clinic locations within the [facility]. For locations and available times, please visit https://[email or web address].[place].gov/. It is important to note that some COVID mobile vaccine clinics are held outdoors and may be canceled in rainy or stormy conditions. To learn more about pediatric vaccinations (ages 5-11), we invite you to visit the [facility] webpage. https://www.[facility].org/pages/7181-Ginff-Msweptaqmjg-Sfytdgklyr-Ebjgy-Cnh stions.htmlTo learn more about the COVID-19 vaccine, we invite you to visit the [facility] website for a list of frequently asked questions. https://cecil.PaeDae/assets/Gwikgthu-vng-Pksripcw/elwsb-Zbyvjpy-Hicvhoigjt _Asked-Questions.pdf [facility] Patient Portal Access Instructions: Stay connected with your healthcare team and access your personal medical information anytime with the [facility] Patient Portal.If you would like a full copy of your medical records, please contact the [facility] Medical Records Department, Wednesday through Wednesday between 8a.m. and 4:30p.m. Please follow the directions below to access the portal: 1.Access the email account you provided upon registration to the [facility].2.Look for an invitation email from [facility].3.Open the email and access the invitation link: Accept Invitation to [facility]4.Fill in the required alejandro to create your account. Sign into [email or web address] with your username and password that you [...] you will allow to register on the [facility] Patient Portal for access to your information. You can also access the [facility] Patient Portal on the Cloud Sustainability. Simply click on "Health Records" under "HealthData" [...] Call your local pharmacy or go to http://[employer].SynapticMash/5I3Uv1x to find one close to you.3.Make use of household items: Use cat litter or old coffee grounds to dispose medications if other options arenot available. Mix your drugs with these household products, seal them in an airtight container andthrow it into the garbage. Call [facility]: [phone] to be sure your drugs can be [...] aware that I should contact my doctor. Patient/Director Of Instrumental Music Signature: Date/Time: Relationship to Patient: Witness Name/Signature: Date/Time: [facility] Discharge summary Date of Service 12/06/21 Discharge Diagnosis 1. Unsteady gait (R26.81 - ICD-10-CM) 2. Dizziness (R42 - ICD-10-CM) Dizziness ([id number] - PNED) HTN - Hypertension ([id number] - PNED) Additional Orders: Ordered: atenolol 25 mg oral tablet,Dose : 25 mg = 1 tab(s), Oral, qDay, # 30 tab(s), 0 Refill(s), Pharmacy: [facility]/pharmacy #[id number], 160, cm, 12/03/21 21:46:00 EDT, Height Ordered: [...] 100 mg daily, hydralazine 25 mg daily, xrvzsymovclkakhcwag34 mg daily, lisinopril 20 mg daily. In [...] schedule a follow up appointment Where: [address] [place] [address]- Follow Up Appointments No qualifying data available. Follow Up Labs/Studies Discharge Labs No Follow-up Labs Discharge Studies No Follow-up Studies Discharge Diet No qualifying data available. Discharge Activity No qualifying data available. Readmission Risk/Palliative Score No qualifying data available. Digitally Signed by CODY RILEY MD on 12/06/2021 11:43 AM [id number] Discharge summary Date of Service 12/06/21 Discharge Diagnosis 1. Unsteady gait (R26.81 - ICD-10-CM) 2. Dizziness (R42 - ICD-10-CM) Dizziness ([id number] - PNED) HTN - Hypertension ([id number] - PNED) Additional Orders: Ordered: atenolol 25 mg oral tablet,Dose : 25 mg = 1 tab(s), Oral, qDay, # 30 tab(s), 0 Refill(s), Pharmacy: [facility]/pharmacy #[id number], 160, cm, 12/03/21 21:46:00 EDT, [...] CT head, chest x-ray, MRI brain, TTE, [place]- [place] unremarkable.ECG showed LBBB, no prior EKG [...] 100 mg daily, hydralazine 25 mg daily, jtvvjneztenkvlbamiz26 mg daily, lisinopril 20 mg daily. In [...] to schedule a follow up appointment Where: [address] [place] [address] Medicine [place], [place] [id number]- Follow Up Appointments No qualifying data available. Follow Up Labs/Studies Discharge Labs No Follow-up Labs Discharge Studies No Follow-up Studies Discharge Diet No qualifying data available. Discharge Activity No qualifying data available. Readmission Risk/Palliative Score No qualifying data available. Digitally Signed by CODY RILEY MD on 12/06/2021 11:43 AM [facility] [id number] Note Chief Complaint Transition plan Transitional Action Points Currently is transition over to [facility] in [place] is able to accept Patient echo [...] are recommending SNF. 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 [place]-Hallpike was performed in ED documented asnegative. Patient was transfer from [place] to [facility] for further cardiovascular work-up. Orthostatics performed and [...] Zara no answer, called patient's son Ang [phone] Who states that patient's mental status has [...] FRIEDA HOLLAND MD on 12/05/2021 06:41 PM [facility] HospitalZuvubtxr02-44-4911 Note ORIGINAL EXAMINATION: TWO XRAY VIEWS OF [...] Sign Date: 12/06/2021 12:06:38 AM Ordering Provider: [facility]10-28-2022 Note ORIGINAL EXAMINATION: MR Brain [...] pathology. 2. Moderate parenchymal volume loss and zlmm-xp-mrykddpd chronic microvascular white matter ischemic disease. Interpreted by: Alanna Chin MD Preliminary Report By: Alanna Chin MD Electronically signed By Alanna Chin MD Dictated Date: 12/05/2021 1:36:40 PM Prelim Date: 12/05/2021 1:40:15 PM Sign Date: 12/05/2021 1:40:15 PM Ordering Provider: ANA [facility]10-28-2022 Note ORIGINAL EXAMINATION: MR Brain [...] pathology. 2. Moderate parenchymal volume loss and bzfs-rp-drmkpctc chronic microvascular white matter ischemic disease. Interpreted by: Alanna Chin MD Preliminary Report By: Alanna Chin MD Electronically signed By Alanna Chin MD Dictated Date: 12/05/2021 1:36:40 PM Prelim Date: 12/05/2021 1:40:15 PM Sign Date: 12/05/2021 1:40:15 PM Ordering Provider: [facility]10-28-2022 Note Date 12/05/2021 Chief complaint Transition plan. [...] Physical therapy notes on 12/04 recommending SNF. 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 Patient was transfer from [place] to [place] for further cardiovascular work-up. Orthostatics performed and negative. On review of telemetry patient with episodes of bradycardia will decre ase atenolol. Patient ordered for MRI TTE and carotid duplex. PT/OT evaluation pending. Patient seen and examined this morning Patient does appear to have advanced dementia She does know that she is in [place] but speaks in a roundabout way about [...] FRIEDA HOLLAND MD on 12/04/2021 03:40 PM [id number] Note Chief Complaint Transition Plan. Transitional Action [...] Procedure/ Surgical History Lumpectomy of left breast Technical Specialist Tubal ligation Medication List Active Medications [...] by MAGDALENA ASHLEY on 12/04/2021 02:59 PM [id number] History and physical note [place] [facility]ist History and Physical Date of Admission: 12/03/2021 Chief complaint: Dizziness History of present illness: History is taken from talking with the patient. Patient was accepted asa transfer from [place] emergency department by my colleague. Patient has [...] Postmenopausal state Right arm pain Vulvar lesion Technical Specialist Tubal ligation Family history: Mother: High [...] Rate18(DEC 03 21:30)16(DEC 03 14:53)20(DEC 03 14:26) [id number](DEC 03 21:30)136(DEC 03 21:30)H 187(DEC 03 16:20) [...] Appearance (POC): Clear (12/03/21 16:12:00) Urine Specific [place] (POC): <=1.005 Abnormal (12/03/21 16:12:00) Urine Glucose [...] Patient was accepted as a transfer from [facility] emergency department by my colleague [...] ANA WILSON MD on 12/03/2021 09:55 PM [id number] Note ORIGINAL EXAMINATION: CT OF THE HEAD [...] Date: 12/03/2021 4:02:30 PM Ordering Provider: BLANCA [facility]10-26-2022 Note ORIGINAL EXAMINATION: CT OF THE [...] Date: 12/03/2021 4:02:30 PM Ordering Provider: BLANCA [facility]10-26-2022 Evaluation + Plan noteExtracted from: Title:Clinical Document Author:ANA WILSON MD Date:12/03/21 [place] [facility]ist History and Physical Date of Admission: 12/03/2021 Chief complaint: Dizziness History of present illness: History is taken from talking with the patient. Patient was accepted as a transfer from [place] emergency department by my colleague. Patient has [...] Postmenopausal state Right arm pain Vulvar lesion Technical Specialist Tubal ligation Family history: Mother: High [...] Rate18(DEC 03 21:30)16(DEC 03 14:53)20(DEC 03 14:26) [id number](DEC 03 21:30)136(DEC 03 21:30)H 187(DEC 03 16:20) [...] Appearance (POC): Clear (12/03/21 16:12:00) Urine Specific [place] (POC): <=1.005 Abnormal (12/03/21 16:12:00) Urine Glucose [...] Patient was accepted as a transfer from [facility] emergency department by my colleague [...] MA Mammo Screening Bilateral w/ Fer 12/12/21 [facility] Dis[facility] summary Author Jean Claude Harry [facility] Note Date/Time July 24, 2024 3:52 am [facility] Medical Records Department [address] [place] [address] Emergency Department Summary 07/24/24 MR#: [id number] Acct: [id number] Name: CT DALTON Rep #:[id number] : [id number] 83 From: Jean Claude Harry [...] mg PO DAILY 04/20/17 04/27/17 08:00 History noatvhgbuave-Bw-lldy-minerals 1 ea PO DAILY 04/20/17 U nknown [...] range of motion. 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 Neurologically she is awake and alert. [...] Right hip moderate degenerative changes. Reading Location: [place] [address] Right hip and pelvis x-ray, 3 views, [...] obviously lying in bed. Tylenol for pain. Foster as needed for pain also. Print Language: Amharic Disposition Disposition: Home, Self Care What to do if you have Problems For any increased pain, shortness of breath, bleeding, nausea or vomiting, chestpain, or any unexpected problems, contact your Primary Care Provider. Call [facility] ([phone]) or report to the closest Emergency Room. Call 911 if necessary. 07/24/242 <Electronically signed by Jean Claude Harry MD> Cosigner Signature (if applicable): CC: Dr. Jairon Medel MD ~ Signed [facility] Work Phone: Evaluation + Plan note Future Appointments Appointment Date:05/05/2021 09:00:00 AM Scheduled Provider:ALANNA WRIGHT DO Location:[facility] Appointment Type:[facility] Evaluation + Plan note Future Appointments Appointment Date:11/06/2021 08:30:00 AM Scheduled Provider:ALANNA WRIGHT DO Location:[facility] [place] Appointment Type:PC Wellness Medicare with Labs Future Scheduled Tests Radiology* XR Humerus Minimum 2 Views Right 05/05/21 [facility] evaluation + Plan note Future Appointments Appointment Date:01/15/2022 02:00:00 PM Scheduled Provider: Location:[facility] Appointment Type:MA Mammogram Screening Bilateral w/ Fer Appointment Date:02/25/2022 10:00:00 AM Scheduled Provider:LARRY THOMAS DO Location:[facility] Appointment Type:PC SLATE CUTTER OPERATOR Appointment Date:03/13/2022 10:30:00 AM Scheduled Provider:ALANNA WRIGHT DO Location:[facility] [place] Appointment Type:PC OV Future Scheduled Tests Radiology* MA Mammo Screening Bilateral w/ Fer 01/15/22 [facility] AuditFilealuation + Plan note Future Appointments Appointment Date:02/25/2022 10:00:00 AM Scheduled Provider:LARRY THOMAS DO Location:[facility] Appointment Type:PC SLATE CUTTER OPERATOR Appointment Date:03/13/2022 10:30:00 AM Scheduled Provider:ALANNA WRIGHT DO Location:[facility] [place] Appointment Type:PC OV Future Scheduled Tests Radiology* US Biopsy Breast Left 1st Lesion 01/22/22 [facility] evaluation + Plan note Future Appointments Appointment Date:03/05/2022 10:00:00 AM Scheduled Provider:LARRY THOMAS DO Location:[facility] Appointment Type:PC SLATE CUTTER OPERATOR Appointment Date:03/13/2022 10:30:00 AM Scheduled Provider:ALANNA WRIGHT DO Location:[facility] [place] Appointment Type:PC OV Appointment Date:03/23/2022 01:00:00 PM Scheduled Provider: Location:[facility] Appointment Type:US Biopsy Breast Left 1st Lesion Future Scheduled Tests Radiology* US Biopsy Breast Left 1st Lesion 03/23/22 [facility] + Plan note Future Appointments [...] * US Renal 03/09/22 [facility] Evaluation + Plan note Future Appointments Appointment Date:04/16/2022 04:30:00 PM Scheduled Provider:LARRY THOMAS DO Location:[facility] Appointment Type:PC OV Future Scheduled Tests Laboratory* Hepatic Function Panel 04/13/22 Radiology* US Renal 03/09/22 [facility] Evaluation + Plan note Future Appointments Appointment Date:04/15/2022 07:30:00 AM Scheduled Provider: Location:[facility] Appointment Type:US Renal Appointment Date:04/16/2022 04:30:00 PM Scheduled Provider:LARRY THOMAS DO Location:[facility] Appointment Type:PC OV Appointment Date:05/28/2022 10:00:00 AM Scheduled Provider:ANISA GOMEZ MD Location:[facility] Appointment Type:LIYAH SLATE CUTTER OPERATOR Future Scheduled Tests Radiology* US Renal 04/15/22 [facility] Evaluation + Plan note Future Appointments Appointment Date:04/16/2022 04:30:00 PM Scheduled Provider:LARRY THOMAS DO Location:[facility] Appointment Type:PC OV Appointment Date:05/28/2022 10:00:00 AM Scheduled Provider:ANISA GOMEZ MD Location:[facility] Appointment Type:BS SLATE CUTTER OPERATOR [facility] Evaluation + Plan note [...] DEXA Axial Skeleton 12/14/22 [facility] Evaluation + Plan note Future Appointments Appointment Date:06/15/2023 10:30:00 AM Scheduled Provider:LARRY THOMAS DO Location:[facility] Appointment Type:PC OV Diagnostic Tests Pending * Methylmalonic Acid, Serum 04/07/23 [facility] Evaluation + Plan note Future Appointments Appointment Date:06/15/2023 10:30:00 AM Scheduled Provider:LARRY THOMAS DO Location:[facility] Appointment Type:PC OV [facility] Evaluation + Plan note Future Appointments Appointment Date:12/15/2023 10:00:00 AM Scheduled Provider:LARRY THOMAS DO Location:[facility] Appointment Type:PC OV [facility] evaluation + Plan note Future Appointments Appointment Date:12/29/2023 01:30:00 PM Scheduled Provider:LARRY THOMAS DO Location:[facility] Appointment Type:PC OV Diagnostic Tests Pending * Vitamin B12 Level 12/15/23 * Folate Level 12/15/23 Future Scheduled Tests Laboratory* Calcium Level Ionized 12/15/23 * Urine Culture 12/15/23 Radiology* XR Spine Lumbar W/Obliques 4 Views 12/15/23 [facility] evaluation + Plan note [facility] Type[facility]PC OV [facility] Evaluation note* Diagnosis Abnormal ultrasound of breast Other (abnormal) findings on radiological examination of breast History of left breast cancer documented in this [facility] noteNo assessment information availableWMcCullough-[facility] Work Phone: Hospital course Narrative No data available for this section [facility] Hospital Discharge instructions No data available for this section [facility] Hospital Discharge instructions Additional Instructions She has a superior pubic ramus fracture which is a pelvis fracture. These are not treated with surgery. They generally heal over weeks to months. She can do activity as tolerated. She may walk or be in a wheelchair or obviously lying in bed. Tylenol for pain. Foster as needed for pain also.[facility] Work Phone: Progress note No data available for this section [facility] Reason for referral (narrative)No reason for referral information availableWMcCullough-Hyde Memorial Hospital Work Phone: Chief Complaint Chief [...] Visit Chief Complaint Admit Date ADMISSION EXAM SLATE CUTTER OPERATOR February 24, 2024 3 :20pm [facility] February 28, 2024 5:00am ADMISSION EXAM February 29, 2024 1 1:54am [facility] March 27 5:00am LABWORK April 03, 2024 5:00am NEW CONCERN April 03, 2024 2:22pm LABWORK May 01, 2024 5:0 0am Chief Complaint Admit Date ADMISSION EXAM SLATE CUTTER OPERATOR February 24, 2024 3 :20pm [facility] February 28, 2024 5:00am ADMISSION EXAM February 29, 2024 1 1:54am [facility] March 27 5:00am LABWORK April 03, 2024 5:00am NEW CONCERN April 03, 2024 2:22pm MONTHLY EXAM April 11, 2024 5:02 pm NEW CONCERN April 26, 2024 6:3 9pm LABWORK May 01, 2024 5:0 0am [facility] May 15, 2024 4: 00am Chief Complaint Admit Date ADMISSION EXAM SLATE CUTTER OPERATOR February 24, 2024 3 :20pm [facility] February 28, 2024 5:00am ADMISSION EXAM February 29, 2024 1 1:54am [facility] March 27 5:00am LABWORK April 03, 2024 5:00am NEW CONCERN April 03, 2024 2:22pm MONTHLY EXAM April 11, 2024 5:02 pm NEW CONCERN April 26, 2024 6:3 9pm LABWORK May 01, 2024 5:0 0am [facility] May 15, 2024 4: 00am LABWORK May 29, 2024 5:0 0am Chief Complaint Admit Date ADMISSION EXAM SLATE CUTTER OPERATOR February 24, 2024 3 :20pm [facility] February 28, 2024 5:00am ADMISSION EXAM February 29, 2024 1 1:54am [facility] March 27 5:00am LABWORK April 03, 2024 5:00am NEW CONCERN April 03, 2024 2:22pm MONTHLY EXAM April 11, 2024 5:02 pm NEW CONCERN April 26, 2024 6:3 9pm LABWORK May 01, 2024 5:0 0am [facility] May 15, 2024 4: 00am [facility] May 24, 2024 5 :00am LABWORK May 29, 2024 5:0 0am Chief Complaint Admit Date [facility] March 27 5:00am LABWORK April 03, 2024 5:00am NEW CONCERN April 03, 2024 2:22pm MONTHLY EXAM April 11, 2024 5:02 pm NEW CONCERN April 26, 2024 6:3 9pm LABWORK May 01, 2024 5:0 0am [facility] May 15, 2024 4: 00am [facility] May 24, 2024 5 :00am LABWORK May 29, 2024 5:0 0am [facility] June 26, 2024 4:0 0am fall July 24, 2024 1:23 am Chief Complaint Admit Date [facility] March 27 5:00am LABWORK April 03, 2024 5:00am NEW CONCERN April 03, 2024 2:22pm MONTHLY EXAM April 11, 2024 5:02 pm NEW CONCERN April 26, 2024 6:3 9pm LABWORK May 01, 2024 5:0 0am [facility] May 15, 2024 4: 00am [facility] May 24, 2024 5 :00am LABWORK May 29, 2024 5:0 0am [facility] June 26, 2024 4:0 0am Chief Complaint Admit Date LABWORK April 03, 2024 5:00am NEW CONCERN April 03, 2024 2:22pm MONTHLY EXAM April 11, 2024 5:02 pm NEW CONCERN April 26, 2024 6:3 9pm LABWORK May 01, 2024 5:0 0am Monthly Exam May 12, 2024 2:03 pm [facility] May 15, 2024 4: 00am [facility] May 24, 2024 5 :00am LABWORK May 29, 2024 5:0 0am [facility] June 26, 2024 4:0 0am fall July 24, 2024 1:23 am Chief Complaint Admit Date LABWORK April 03, 2024 5:00am NEW CONCERN April 03, 2024 2:22pm MONTHLY EXAM April 11, 2024 5:02 pm NEW CONCERN April 26, 2024 6:3 9pm LABWORK May 01, 2024 5:0 0am Monthly Exam May 12, 2024 2:03 pm [facility] May 15, 2024 4: 00am New Concern May 23, 2024 5:0 2pm [facility] May 24, 2024 5 :00am LABWORK May 29, 2024 5:0 0am [facility] June 26, 2024 4:0 0am fall July 24, 2024 1:23 am Chief Complaint Admit Date NEW CONCERN April 26, 2024 6:3 9pm LABWORK May 01, 2024 5:0 0am Monthly Exam May 12, 2024 2:03 pm [facility] May 15, 2024 4: 00am New Concern May 23, 2024 5:0 2pm [facility] May 24, 2024 5 :00am LABWORK May 29, 2024 5:0 0am [facility] June 26, 2024 4:0 0am MONTHLY EXAM June 27, 2024 4:00p m fall July 24, 2024 1:23 am Chief Complaint Admit Date LABWORK May 01, 2024 5:0 0am Monthly Exam May 12, 2024 2:03 pm [facility] May 15, 2024 4: 00am New Concern May 23, 2024 5:0 2pm [facility] May 24, 2024 5 :00am LABWORK May 29, 2024 5:0 0am [facility] June 26, 2024 4:0 0am MONTHLY EXAM June 27, 2024 4:00p m fall July 24, 2024 1:23 am NEW CONCERN July 24, 2024 2:45 pm LABWORK August 21, 2024 5:00 am Chief Complaint Admit Date [facility] May 24, 2024 5 :00am LABWORK May 29, 2024 5:0 0am [facility] June 26, 2024 4:0 0am [...] am LABWORK September 18, 2024 5: 00am [facility] October 16, 2024 5:00am Additional Source Comments Reason for Visit (unrecogniz ed section and content) Reason For Visit Description Follow-up by complaint Preliminary reason f or visit data, not yet signed by the author as of lower back pain Reason Comments Consult Left breast consult Reason Comments Request for medical records INFORMATION SOURCE (unrecogn ized section and content) DATE CREATED AUTHOR 03/11/2018 [facility] DATE CREATED AUTHOR AUTHOR'S ORGANIZ ATION 06/04/2022 [facility] DATE CREATED AUTHOR AUTHOR'S ORGANIZ ATION 07/09/2023 [facility] [place] DATE CREATED AUTHOR AUTHOR'S ORGANIZ ATION 02/24/2024 [facility] DATE CREATED AUTHOR AUTHOR'S ORGANIZ ATION 03/28/2024 [facility] DATE CREATED AUTHOR AUTHOR'S ORGANIZ ATION 12/20/[address] [facility] Care Team (unrecognized sect ion and content) Care Team Personnel Name: ALANNA WRIGHT DO Position: P4 Physician - Primary Care Member Role: Primary Care Physician Address: Address: [address] [place] [address] Name: Venkata Alegria RN Position: ED RN Member Role: ED RN Name: BLANCA ARRIETA DO Position: P4 ED Physician II Member Role: ED Physician Address: Address: [address] [place] [address]- Care Team Related Persons Name: ZARA DALTON Address: Home [address] [place], [place] [id number] [place] Care Team Personnel Name: ALANNA WRIGHT DO Position: P4 Physician - Primary Care Member Role: Primary Care Physician Address: Address: [address] [place], [place] [address] Name: Danette Busch RN Position: RN Member Role: RN Name: INES DENNIS MD Position: ED Physician Member Role: Attending Physician Address: Address: [facility] [address] [place] [address]- Care Team Related Persons Name: ZARA DALTON Address: Home [address] [place], [place] [id number] [place] Care Team Personnel Name: ALANNA WRIGHT DO Position: P4 Physician - Primary Care Member Role: Primary Care Physician Address: Address: [address] [place] [address]- Care Team Related Persons Name: ZARA DALTON Address: Home [address] [place], [place] [id number] [place] Care Team Personnel Name: LARRY THOMAS DO Position: P4 Physician - Primary Care Member Role: Primary Care Physician Address: Address: [address] [place] [address]- Care Team Related Persons Name: ZARA DALTON Address: Home [address] [place], [place] [id number] [place] Care Team Personnel Name: LARRY THOMAS DO Position: P4 Physician - Primary Care Member Role: Primary Care Physician Address: Address: [address] [place] [address]- Care Team Related Persons Name: ZARA DALTON Address: Home [address] [place], [place] [phone] [place] Care Team Personnel Name: LARRY THOMAS DO Position: P4 Physician - Primary Care Member Role: Primary Care Physician Address: Address: [address] [place] [address]- Care Team Related Persons Name: ZARA DALTON Address: Home [address] [place], [place] [id number] [place] Care Team Personnel Name: LARRY THOMAS DO Position: P4 Physician - Primary Care Member Role: Primary Care Physician Address: Address: [address] [place] [address]- Care Team Related Persons Name: ZARA DALTON Address: Home [address] [place], [place] [phone] [place] Care Team Personnel Name: LARRY THOMAS DO Position: P4 Physician - Primary Care Member Role: Primary Care Physician Address: Address: [address] [place] [address]- Care Team Related Persons Name: ZARA DALTON Address: Home [address] [place], [place] [id number] [place] Source Comments (unrecognize d section and content) In the event this informatio n is protected by the Federal Confidentiality of Alcohol and Drug Abuse Patient Records regulations: The Federal rules restrict any use of the information to criminally investigate or prosecute any alcohol or drug abuse patient.[facility] Hospital[facility] the event this information is protected by the Federal Confidentiality of Alcohol and Drug Abuse Patient Records regulations: The Federal rules restrict any use of the information to criminally investigate or prosecute any alcohol or drug abuse patient.[facility] Care Teams (unrecognized sec tion [...] 2024 End: April 26, 2024 Jane Tickton SLATE CUTTER OPERATOR, SLATE CUTTER OPERATOR-C Attending Provider Active Start: April 26, [...] May 24, 2024 End: May 24, 2024 Jaiorn TREVIÑO MD Attending Provider Active Start: May [...] July 24, 2024 End: July 24, 2024 Security Systems Integrator Relationship Specialty Start Date End Date Larry Thomas, [address] [place] [address] PCP - General Family Medicine 03/30/22 Lachelle Cervantes MD, [address] [place], [place] [address] Physician Radiation Oncology 05/11/17 Kesha Davidson RN Specialty Copy Preparer Oncology 07/28/17 Security Systems Integrator Relationship Specialty Start Date End Date Larry Thomas, [address] [place] [address] PCP - General Family Medicine 03/30/22 Lachelle Cervantes MD, [address] [place], [place] [address] Physician Radiation Oncology 05/11/17 Kesha Davidson RN Specialty Copy Preparer Oncology 07/28/17 Team Status: Active Member Role Status Dates Dr. Warner Leos Jr., MD Family Provider Active Dr. Warner Leos Jr., MD Primary Care Provider Active Team Status: Inactive Member Role Status Dates Dr. Warner Leos Jr., MD Primary Care Provider Active Start: February 24, 2024 End: February 24, 2024 Jane Barth SLATE CUTTER OPERATOR, SLATE CUTTER OPERATOR-C Attending Provider Active Start: February 24, [...] 2024 End: May 12, 2024 Jane Barth SLATE CUTTER OPERATOR, SLATE CUTTER OPERATOR-C Attending Provider Active Start: May 12, 2024 End: May 12, 2024 Team Status: Inactive Member Role Status Dates Dr. Jairon Medel MD Primary Care Provider Active Start: May 23, 2024 End: May 23, 2024 Jane Barth SLATE CUTTER OPERATOR, SLATE CUTTER OPERATOR-C Attending Provider Active Start: May 23, 2024 End: May 23, 2024 Team Status: Active Member Role/Relationship Status Dates Dr. Jairon Medel MD Primary Care Provider Active Team Status: Inactive Member Role/Relationship Status Dates Dr. Warner Leos Jr., MD Primary Care Provider Active Start: April 26, 2024 End: April 26, 2024 Jane Barth SLATE CUTTER OPERATOR, SLATE CUTTER OPERATOR-C Attending Provider Active Start: April 26, [...] 2024 End: May 12, 2024 Jane Barth SLATE CUTTER OPERATOR, SLATE CUTTER OPERATOR-C Attending Provider Active Start: May 12, [...] 2024 End: May 23, 2024 Jane Barth SLATE CUTTER OPERATOR, SLATE CUTTER OPERATOR-C Attending Provider Active Start: May 23, [...] 2024 End: May 12, 2024 Jane Barth SLATE CUTTER OPERATOR, SLATE CUTTER OPERATOR-C Attending Provider Active Start: May 12, [...] 2024 End: May 23, 2024 Jane Barth SLATE CUTTER OPERATOR, SLATE CUTTER OPERATOR-C Attending Provider Active Start: May 23, [...] 2024 End: July 24, 2024 Jane Barth SLATE CUTTER OPERATOR, SLATE CUTTER OPERATOR-C Attending Provider Active Start: July 24, [...] 2024 End: July 24, 2024 Jane Barth SLATE CUTTER OPERATOR, SLATE CUTTER OPERATOR-C Attending Provider Active Start: July 24, [...] 2024 Dr. Jean Claude Harry MD Emergency [facility] Physician Active Start: July 24, 2024 End: July 24, 2024 Team Status: Inactive Member Role/Relationship Status Dates Dr. Jairon Medel MD Primary care physician Activ e Start: July 24, 2024 End: July 24, 2024 Jane Barth SLATE CUTTER OPERATOR, SLATE CUTTER OPERATOR-C Attending physician Active Start: July 24, 2024 [...] BE BASED ON THE PRIMARY CLINICAL RECORDS. [employer] provides no warranty or guarantee of the accuracy or completeness of information in this document.
[2025-02-05 07:44] LABS: Hematocrit 31.5 % (37-47); Hemoglobin 10.0 g/dL (12.0-15.0); Immature Granulocytes Count 0.030 X10^3/uL (0.0-0.0); Mean Corp Hgb Conc 31.7 g/dL (32-36); Mean Corpuscular Volume 89.5 fL (81-99); Mean Platelet Vol. 9.9 fl (6.2-12.0); NRBC Flagged by Analyzer 0 % (0-5); Platelet Count 267 K/mm3 (150-450); RBC Distribution Width CV 13.6 % (11.6-14.6); RBC Distribution Width SD 44.8 fl (35.1-43.9); Red Blood Count 3.52 M/mm3 (4.2-5.4); White Blood Count 6.4 K/mm3 (4.4-11.0)
[2025-02-05 07:57] LABS: Anion Gap 9 (7-18); BUN 22 mg/dL (4-19); BUN/Creat Ratio 22.1 RATIO (10-20); Calcium,Total 9.5 mg/dL (7.6-11.0); Carbon Dioxide 26.8 mmol/L (20.0-29.0); Chloride 108 mmol/L (96-106); Glucose 93 mg/dL (70-99); Potassium 4.2 mmol/L (3.5-5.1)
== END ==
LOC: OLS.WHLCAR 04:00
PROVIDERS: PCP Internal Medicine; Referring Provider Internal Medicine; Visit Provider Internal Medicine
DX: G30.9 Alzheimer's disease, unspecified (principal); F02.B11 Dementia in other diseases classified elsewhere, moderate, with agitation; I12.9 Hypertensive chronic kidney disease with stage 1 through stage 4 chronic kidney disease, or unspecified chronic kidney disease; N18.9 Chronic kidney disease, unspecified
CPT/HCPCS: 36415; 80048; 85025